=== PATIENT | male | born 1965 | race Caucasian/White ===

== ENCOUNTER 2023-02-15 13:02 | Outpatient (OUT) | payer MEDICARE, MEDICAID, SELFPAY ==
--- NOTE | 2023-02-15 13:29 | XR_ITS ---
The [place] [id number] Patient Name: GEREMIAS ARAYA MRN: [id number] date: 1965 Sex: M Assigned Patient Location: Current Patient Location: Accession/Order Number: [id number] Exam Date: 02/15/2023 13:28 Report Date: 02/15/2023 15:52 At the request of: NAYLA OAKES Procedure: XR foot RT min 3V STUDY: XR foot RT min 3V, [id number] HISTORY: RIGHT FOOT PAIN COMPARISON: Right foot x-ray 07/28/2022. FINDINGS: Chronic plantar dislocation of the cuboid with respect to the fourth and fifth metatarsals. Chronic plantar dislocation at the talonavicular joint, similar. No acute fracture. Focus of soft tissue gas along the lateral plantar aspect of the foot. There is adjacent osteolysis of the dislocated head of the cuboid which is new compared with 07/28/2022. XR/XR foot RT min 3V IMPRESSION: Chronic dislocation at the talonavicular joint and fourth and fifth tarsometatarsal joints. There is new soft tissue gas and osteolysis of the plantar and distal aspect of the cuboid, suspect for osteomyelitis. Electronically authenticated by: LYNN TARIQ Date: 02/15/2023 15:52
== END 2023-02-15 13:03 | disposition home or self-care (01) ==
LOC: WC 13:02
PROVIDERS: PCP Family Medicine; Visit Provider Podiatrist Foot & Ankle Surgery
DX: M79.671 Pain in right foot (principal); E11.621 Type 2 diabetes mellitus with foot ulcer; L97.412 Non-pressure chronic ulcer of right heel and midfoot with fat layer exposed; M86.471 Chronic osteomyelitis with draining sinus, right ankle and foot; E11.69 Type 2 diabetes mellitus with other specified complication; E11.610 Type 2 diabetes mellitus with diabetic neuropathic arthropathy
CPT/HCPCS: 29445; 73630; A6213; G0463

== ENCOUNTER 2023-02-17 11:26 | Outpatient (OUT) | payer MEDICARE, SELFPAY | END 2023-02-17 11:27 | disposition home or self-care (01) | LOC: WC 11:26 | PROVIDERS: PCP Family Medicine; Visit Provider Podiatrist Foot & Ankle Surgery | DX: E11.621 Type 2 diabetes mellitus with foot ulcer (principal); L97.412 Non-pressure chronic ulcer of right heel and midfoot with fat layer exposed; L97.421 Non-pressure chronic ulcer of left heel and midfoot limited to breakdown of skin | CPT/HCPCS: A6213; G0463 ==

== ENCOUNTER 2023-02-23 13:36 | Outpatient (OUT) | payer MEDICARE, SELFPAY ==
[2023-02-23 13:54] LABS: Basophils Percent Auto 0.5 % (0.2-2.0); Eosinophils Absolute Auto 0.3 10^3/uL (0.0-0.7); Eosinophils Percent Auto 3.3 % (0.9-7.0); Hematocrit 42.9 % (42.0-54.0); Hemoglobin 14.9 g/dL (14.0-18.0); Immature Granulocytes Abs Auto 0.02 10^3/uL (0.00-0.03); Immature Granulocytes Pct Auto 0.3 % (0.0-0.5); Lymphocytes Absolute Auto 1.2 10^3/uL (1.2-3.8); Lymphocytes Percent Auto 16.4 % (20.5-60.0); Mean Corpuscular HGB Conc 34.7 g/dL (29.9-35.2); Mean Corpuscular Hemoglobin 32.5 pg (25.9-34.0); Mean Corpuscular Volume 93.7 fL (80.0-94.0); Mean Platelet Volume 9.1 fL (9.5-13.5); Monocytes Absolute Auto 0.7 10^3/uL (0.3-0.8); Monocytes Percent Auto 8.7 % (1.7-12.0); Neutrophils Absolute Auto 5.4 10^3/uL (1.4-6.5); Neutrophils Percent Auto 70.8 % (43.0-75.0); Platelet Count 257 10^3/uL (150-450); Red Blood Count 4.58 10^6/uL (4.70-6.10); Red Cell Distribution Width 12.6 % (11.0-15.0); White Blood Count 7.6 10^3/uL (4.0-11.0)
[2023-02-23 14:02] LABS: Erythrocyte Sedimentation Rate 37 mm/hr (<=20)
[2023-02-23 14:06] LABS: Anion Gap 12.8; BUN Creatinine Ratio 15.6; Calcium 10.2 mg/dL (8.5-10.1); Carbon Dioxide 30.6 mmol/L (21.0-32.0); Chloride 97 mmol/L (98-107); Estimated GFR (African America >60 (>=60); Estimated GFR (Non-African Ame 54 (>=60); Glucose 283 mg/dL (74-106); Potassium 4.4 mmol/L (3.5-5.1); Sodium 136 mmol/L (136-145)
== END 2023-02-23 13:37 | disposition home or self-care (01) ==
LOC: RAD 13:38
PROVIDERS: PCP Family Medicine; Visit Provider Podiatrist Foot & Ankle Surgery
DX: E11.69 Type 2 diabetes mellitus with other specified complication (principal); M86.9 Osteomyelitis, unspecified; E11.622 Type 2 diabetes mellitus with other skin ulcer
CPT/HCPCS: 36415; 80048; 85025; 85652; 86140

== ENCOUNTER 2023-02-23 14:04 | Outpatient (OUT) | payer MEDICARE, SELFPAY | END 2023-02-23 14:05 | disposition home or self-care (01) | LOC: WC 14:05 | PROVIDERS: PCP Family Medicine; Visit Provider Podiatrist Foot & Ankle Surgery | DX: E11.69 Type 2 diabetes mellitus with other specified complication (principal); E11.622 Type 2 diabetes mellitus with other skin ulcer; M86.9 Osteomyelitis, unspecified; E11.621 Type 2 diabetes mellitus with foot ulcer; L97.412 Non-pressure chronic ulcer of right heel and midfoot with fat layer exposed; L97.421 Non-pressure chronic ulcer of left heel and midfoot limited to breakdown of skin | CPT/HCPCS: 36415; 80048; 85025; 85652; 86140; A6021; G0463 ==

== ENCOUNTER 2023-02-23 17:30 | Outpatient (REF) | payer MEDICARE, MEDICAID, SELFPAY | END 2023-02-23 17:31 | disposition home or self-care (01) | LOC: LAB 17:30 | PROVIDERS: PCP Family Medicine; Visit Provider Family Medicine | DX: L08.9 Local infection of the skin and subcutaneous tissue, unspecified (principal) | CPT/HCPCS: 87070; 87150; 87186 ==

== ENCOUNTER 2023-03-09 15:07 | Outpatient (OUT) | payer MEDICARE, MEDICAID, SELFPAY | END 2023-03-09 15:08 | disposition home or self-care (01) | LOC: WC 15:07 | PROVIDERS: PCP Family Medicine; Visit Provider Podiatrist Foot & Ankle Surgery | DX: E11.621 Type 2 diabetes mellitus with foot ulcer (principal); L97.412 Non-pressure chronic ulcer of right heel and midfoot with fat layer exposed | CPT/HCPCS: 11043 ==

== ENCOUNTER 2023-03-10 13:38 | Outpatient (OUT) | payer MEDICARE, MEDICAID, SELFPAY ==
--- NOTE | 2023-03-10 13:45 | ECG_ITS ---
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
--- NOTE | 2023-03-10 14:35 | PM.PRESUREVA ---
History of Present Illness History of Present Illness Chief complaint: charcot ankle and foot right Narrative: Patient presents for preadmission testing. Please see HPI I from Dr. Chadwick dated 02/23/2023. Review of Systems ROS Narrative REVIEW OF SYSTEMS: Negative except as stated in HPI, ten or more systems reviewed. Constitutional: No fever , chills, weakness ENT: No sore throat or epistaxis Cardiovascular: Admits to lower extremity edema, dyspnea on exertion, and intermittent episodes of chest pain Respiratory: No shortness of breath, cough, or wheezing Gastrointestinal: No abdominal pain, constipation, diarrhea, or vomiting Genitourinary: No dysuria or hematuria Neurological: No numbness, tingling, weakness, or headache Psychiatric: No mood changes PFSH PFS Medical History (Updated 03/10/23 @ 14:13 by Love Alvarez NP) Surgical History (Updated 03/10/23 @ 14:34 by Love Alvarez NP) Family History (Updated 03/10/23 @ 14:13 by Love Alvarez NP) Other Family history of diabetes mellitus Family history of heart disease Social History (Updated 03/10/23 @ 14:06 by Love Alvarez NP) Within the past year, how often did you have a drink containing alcohol: 4 or more times a week Within the past year, how many standard drinks containing alcohol did you have on a typical day: 3 or 4 Smoking status: Current every day smoker Non-prescribed substance use: denies use Highest level of school completed/degree received: high school graduate Meds Home Medications and Allergies Home Medications Medication Instructions Recorded Confirmed Type albuterol sulfate 90 mcg/actuation 2 inh inhalation Q6H PRN shortness 03/10/23 03/10/23 History aerosol inhaler of breath or wheezing alprazolam 1 mg tablet 1 mg PO TID 03/10/23 03/10/23 History amoxicillin 875 mg-potassium 1 tab PO Q12H 03/10/23 03/10/23 History clavulanate 125 mg tablet atorvastatin 10 mg tablet 10 mg PO QDAY 03/10/23 03/10/23 History doxepin 50 mg capsule 150 mg PO QPM 03/10/23 03/10/23 History empagliflozin 25 mg tablet 25 mg PO QDAY 03/10/23 03/10/23 History (Jardiance) fluoxetine 10 mg capsule mg 03/10/23 History furosemide 20 mg tablet 20 mg PO QDAY PRN edema 03/10/23 03/10/23 History gabapentin 800 mg tablet 800 mg PO TID 03/10/23 03/10/23 History insulin glargine 100 unit/mL (3 25 unit subcut QAM 03/10/23 03/10/23 History mL) subcutaneous pen (Lantus Solostar U-100 Insulin) insulin lispro 100 unit/mL 14 unit subcut BID 03/10/23 03/10/23 History subcutaneous pen lisinopril 10 mg tablet 10 mg PO QDAY 03/10/23 03/10/23 History meloxicam 15 mg tablet 15 mg PO QDAY 03/10/23 03/10/23 History metformin 500 mg tablet 500 mg PO TID 03/10/23 03/10/23 History metoprolol succinate 50 mg 50 mg PO QDAY 03/10/23 03/10/23 History tablet,extended release 24 hr omeprazole 20 mg capsule,delayed 20 mg PO QDAY 03/10/23 03/10/23 History release sildenafil 100 mg tablet 100 mg PO Q24H 03/10/23 03/10/23 History thiamine HCl (vitamin B1) 50 mg 50 mg PO QDAY 03/10/23 03/10/23 History tablet Allergies Allergy/AdvReac Type Severity Reaction Status Date / Time No Known Drug Allergies Allergy Verified 03/10/23 13:57 Exam Narrative Exam Narrative: Constitutional: Awake, alert, comfortable, well-appearing, nontoxic, interactive, vital signs as charted Head: Normocephalic, atraumatic Neck: Supple, normal appearance, normal range of motion, no meningeal signs, no lymphadenopathy Respiratory: No respiratory distress, breath sounds clear Cardiovascular: Regular rate and rhythm, strong and regular heart tones Psychiatric: Oriented ?3, normal affect Assessment and Plan Assessment and Plan (1) Charcot's joint, right ankle and foot: (2) Diabetic foot ulcer: (3) Osteoarthritis: Plan Right ankle and subtalar joint fusion, secondary closure of wound, incision of bone, Achilles tenotomy scheduled with Dr. Chadwick 03/24/2023. The patient states that he was referred to cardiology for his chest pain and dyspnea on exertion. He was supposed to have a stress test done two weeks ago, but he stated that he just felt that he did not need to go. I advised the patient that he does need to have a stress test and cardiac clearance prior to his procedure, unless the procedure is deemed urgent by Dr. Chadwick and discussed with anesthesiology.
[2023-03-10 15:16] LABS: BUN Creatinine Ratio 15.3; Calcium 9.7 mg/dL (8.5-10.1); Carbon Dioxide 28.2 mmol/L (21.0-32.0); Chloride 100 mmol/L (98-107); Estimated GFR (African America >60 (>=60); Estimated GFR (Non-African Ame 60 (>=60); Glucose 179 mg/dL (74-106); Potassium 4.2 mmol/L (3.5-5.1); Sodium 137 mmol/L (136-145)
== END 2023-03-10 13:39 | disposition home or self-care (01) ==
PROVIDERS: Visit Provider Podiatrist Foot & Ankle Surgery
DX: Z01.810 Encounter for preprocedural cardiovascular examination (principal); Z01.812 Encounter for preprocedural laboratory examination; E11.610 Type 2 diabetes mellitus with diabetic neuropathic arthropathy; M19.071 Primary osteoarthritis, right ankle and foot
CPT/HCPCS: 80048; 93005; G0463

== ENCOUNTER 2023-03-31 16:27 | Observation (INO) | payer MEDICARE, MEDICAID, SELFPAY ==
[2023-03-10 14:30] VITALS: BP 131/74; PULSE 93; RESP 22; TEMP 36.6; O2SAT 98; BMI 32.8
[2023-03-31] VITALS (28 sets, daily range): BP systolic 101–142; BP diastolic 64–99; PULSE 72–123; RESP 11–20; TEMP 35.8–36.8; O2SAT 16–100; BMI 32.4
--- NOTE | 2023-03-31 | XR_ITS ---
[address] [address] Patient Name: GEREMIAS ARAYA MRN: [id number] date: 1965 Sex: M Assigned Patient Location: [facility] Current Patient Location: [place] Accession/Order Number: [id number] Exam Date: 03/31/2023 08:45 Report Date: 03/31/2023 23:39 At the request of: GEREMIAS GAN Procedure: XR foot RT 2V EXAM: XR foot RT 2V HISTORY: RIGHT FOOT PAIN COMPARISON: Right foot radiographs 03/31/2023 TECHNIQUE: Intraoperative fluoroscopic exam demonstrating right subtalar joint fusion. Approximately 501.2 seconds of fluoroscopic time for total dose of 7.19 mGy. FINDINGS/IMPRESSION: Intraoperative fluoroscopic exam showing subtalar joint fusion without evident hardware complication. Distal resection of the fibula. See operative report for further details. Electronically authenticated by: CASSIE PARMAR Date: 03/31/2023 23:39
[2023-03-31 07:33] LABS: Glucometer 123 mg/dL (74-106)
[2023-03-31 07:39] LABS: Basophils Absolute Auto 0.1 10^3/uL (0.0-0.1); Basophils Percent Auto 0.9 % (0.2-2.0); Eosinophils Absolute Auto 0.4 10^3/uL (0.0-0.7); Eosinophils Percent Auto 4.6 % (0.9-7.0); Hematocrit 44.5 % (42.0-54.0); Hemoglobin 14.7 g/dL (14.0-18.0); Immature Granulocytes Abs Auto 0.03 10^3/uL (0.00-0.03); Immature Granulocytes Pct Auto 0.4 % (0.0-0.5); Lymphocytes Absolute Auto 2.2 10^3/uL (1.2-3.8); Lymphocytes Percent Auto 27.1 % (20.5-60.0); Mean Corpuscular Volume 96.7 fL (80.0-94.0); Mean Platelet Volume 9.8 fL (9.5-13.5); Monocytes Percent Auto 11.8 % (1.7-12.0); Neutrophils Absolute Auto 4.5 10^3/uL (1.4-6.5); Neutrophils Percent Auto 55.2 % (43.0-75.0); Platelet Count 250 10^3/uL (150-450); White Blood Count 8.1 10^3/uL (4.0-11.0)
[2023-03-31] MEDS: LACTATED RINGER'S SOLUTION 1,000 ML 50 ML IV ×3 (07:51→18:12)
[2023-03-31 08:38] LABS: Ethanol <3 mg/dL
--- NOTE | 2023-03-31 09:13 | PM.ORONB ---
Brief Operative Note Date of procedure: 03/31/23 Pre-op diagnosis: left foot Charcot, diabetic foot ulceration with osteomyelitis, equinus Post-op diagnosis: other (left foot Charcot with dislocation of the talonavicular and cuboid-4th/5th metatarsal joints, diabetic foot ulceration with chronic osteomyelitis, equinus; type 2 diabetes with ulceration, neuropathy and Charcot foot) Procedure: PROCEDURES PERFORMED: right ankle and subtalar joint fusion, delayed primary closure of ulceration, excision of cuboid, tendo Achilles lengthening, harvest of tibial bone graft, application short leg splint and intraoperative fluoroscopy examination of right foot and ankle INTRAOPERATIVE FINDINGS: plantar cuboid was consistent with chronic osteomyelitis being discolored and soft. Fibrotic and necrotic soft tissues surrounding the cuboid and ulceration was excised. The cuboid was fully excised and all questionable soft tissue excised. Following excision all remaining tissue/bone appeared to be consistent with Charcot. peritalar subluxation and significant deformity of the ankle and hindfoot. bone quality of the talus was relatively soft and consistent with Charcot. Skin and tissues bled appropriately. PROCEDURE IN DETAIL: Patient was identified in pre op and consent was reviewed. Correct side and site were identified and marked. Pre-op antibiotics were started. Patient was brought to OR suite and place on table in a supine position. General anesthesia was administered. Tourniquet applied. Operative extremity was prepped and draped in usual sterile fashion. Formal time-out was performed and the foot/ankle were exsanguinated and tourniquet inflated. ulceration on his plantar lateral foot measured:3.6 x 3.2 x 2.5 cm. ulceration and all nonviable/questionable tissue was excised in a 3-1 ellipse. Combination sharp and blunt dissection exposed the plantar cuboid which was then released of soft tissue attachments. The cuboid was soft and discolored consistent with chronic osteomyelitis however no evidence of acute infection or purulence. The plantar half of the cuboid was excised and passed back table for specimen. Due to limitation of exposure intact cuboid was not excised through this incision therefore a secondary incision coursing over the sinus tarsi extending to the 5th metatarsal base was utilized. Comminution sharp and blunt dissection gained access to the dorsal aspect of the cuboid allowing it to be fully excised. Surgical site was then irrigated with 3 L of normal saline. Gloves/gowns and surgical drapes were then changed. Bone of the metatarsals and calcaneus although soft were consistent with Charcot bone. Specimen was then obtained with a clean rongeur and sent to microbiology. All questionable and grossly infected bone and soft tissue had been excised therefore decision was made to proceed with ankle and hindfoot fusion. on the back table absorbable bone void filler/cement impregnated with 1 g of vancomycin 1 g of gentamicin was repaired on the back table into beads for later use. the ellipsed ulceration was then meticulously repaired directly with nonabsorbable skin suture without tension while holding the midfoot in a reduced position. Achilles tenotomy: Utilizing a stab incision over the mid substance of the Achilles tendon, a scalpel was used to fully release the Achilles tendon. Significant increase in ankle joint dorsiflexion was noted on the table. A lateral extensile incision over the fibula and coursing to the sinus tarsi was performed. Sharp and blunt dissection was performed to gain access to the fibula. A fibular osteotomy with an oscillating saw was performed proximal to the ankle joint. The fibula was excised from all soft tissue attachments and passed to the back table. Then the ankle and subtalar joints were exposed. Each joint was prepared for fusion by removing all cartilage with the utilization of curettes, osteotomes, and subchondral drilling with a 2.0 mm drill bit. The areas were irrigated with copious amounts of sterile saline multiple times. at this point the procedure the tourniquet was deflated and a temporary pressure dressing with Gelfoam and thrombin was placed over the surgical sites and the extremity was allowed to perfuse. Utilizing C-arm a proper starting point on the plantar surface of the calcaneus was marked. An incision over the plantar heel was created blunt dissection down to the plantar calcaneus was performed. Then utilizing a large guidepin the calcaneus was held in place and in a neutral position. Then a guidepin was placed across the subtalar and ankle joints. This wire was then placed into the distal tibia and was confirmed to be within regularity canal and advanced accordingly. approximately thirty minutes had passed since the tourniquet was dropped and to minimize blood loss extremity was exsanguinated tourniquet was reinflated. Starting with the smallest reamer provided in the tray and the calcaneus, talus and tibia were reamed followed by 0.5 mm larger reamer in succession until chatter was obtained in the tibial isthmus. Largest reaming with an __ mm reamer followed by a 13.5 mm reamer to accommodate the distal aspect of the nail was performed for a 10 x 300 mm nail. All reamings collected as tibial autograft with use of the [employer] Bone Press and corresponding suction device. 15 mL of solid bone graft was from bone marrow aspirate (10 mL) utilizing the bone press. The solid graft was mixed with 5 cc of sparc allograft then packed into the ankle and subtalar joints. On the back table, the appropriate sized nail was attached to the jig and the nitinol element was stretched to 6 mm. The guidepin was removed and the nail was placed to the appropriate depth and rotation. X-ray was evaluated for proper positioning of the nail. Stab incisions over the posterior and lateral aspect of the calcaneus were placed followed by blunt dissection down to bone was performed. The lateral to medial calcaneus hole was drilled with the corresponding cannula and a 5.0 mm screws was placed. Next, the distal most screw was drilled from posterior to anterior under fluoroscopy guidance. A 5.0 mm screw was then placed from a posterior anterior direction through the nail holes distally. A stab incision was placed over the mid shaft of the tibia followed by blunt dissection down to bone. Then the tibia drilled transversely with a compression isabela accordingly with the appropriate drill sleeves across the dynamic proximal slot an additional stab incision was placed to allow passage of the compression isabela. Then utilizing the jig the ankle and subtalar joints were compressed until there was a slight bend in the compression rods. __ of tremaine compression was obtained which was visualized under fluoroscopy. Next the medial stab incision was extended proximally and distally followed by blunt dissection down to bone. A static crosslock screw was placed accordingly across the midshaft with the aide of the jig under fluoroscopic guidance. The manual compression was removed followed by the compression isabela. An additional 5.0 mm screw was placed transversely across the dynamic slot in the tibia. The jig was then removed after confirming proper hardware placement. An end cap on the distal aspect of the nail was then placed and confirmed under fluoroscopy. on final x-rays it was noted that the posterior aspect of the talus had broken and correction of talar declination had been lost. Therefore to provide additional stability at the tibiotalar joint additional fixation was utilized. A stab incision was used on the medial malleolus and a guidepin was placed from the medial malleolus and across the anterior aspect of the ankle joint into the talar body. Then an additional guidewire was placed from the lateral aspect of the talar body/neck and was placed across the tibiotalar joint into the anterior medial distal tibia. 7.0 mm cannulated screws were placed accordingly over the wires and additional stability was obtained when stressing the ankle joint. The midfoot did provide twenty degrees of sagittal plane range of motion. surgical site was irrigated and the antibiotic beads previously prepared were then placed through the lateral incision anterior to the calcaneus in the area of the previously resected cuboid. The surgical sites were irrigated and all incisions were closed in layers. the tourniquet was deflated and a prompt hyperemic response was noted. A dry sterile dressing consisting of Xeroform on the incisions followed by 4 x 4 gauze, ABDs, and Kerlix were applied. Multiple layers of cast padding were then applied to ensure all bony prominences were well-padded. A plaster posterior splint was then applied which was held in place by Raymundo wraps. Capillary refill time to all digits was evaluated and had appropriate response. POSTOPERATIVE PLAN: Transfer to med/surg under hospitalist's care NWB operative foot/ankle Ice and elevation Angelica-op antibiotics, multimodal pain medication and DVT prophylaxis ordered Alcohol withdrawl protocol - patient admits to 6+ drinks per day Consults: physical therapy & psychosocial rehabilitation counselor Estimated LOS 2-3 nights Will follow *NWB x 8-12 weeks Implants: Medshape DynaNail 10 x 300; Cerament beads with vanco/gent; Medline 7.0 mm headed cannulated screws; Sparc bone allograft 5 cc Anesthesia: regional and General-LMA Surgeon: Montrell Chadwick Service Rig Operator: Diaz Naranjo Estimated blood loss (mL): 150 Pathology: other (bone from cuboid was sent to microbiology and pathology) Condition: stable Disposition: PACU Preoperative Details Reason for procedure: patient is a 57-year-old male who initially was treated by Franky Turpin DPM for right foot Charcot neuroarthropthy associated with diabetic neuropathy. initial x-rays in March 2022, MRI obtained in April [address] obtained in May 2022 demonstrated subluxation of the talonavicular joint as well as the cuboid-4th/5th metatarsal joint without evidence of osteomyelitis or infection. He then was being followed by Dr. Ruth who referred the patient to me in June 2022. weightbearing x-rays in my office demonstrated a negative cuboid height, significant plantarflexion of the talus with dorsal subluxation of the talonavicular joint and bony fragmentation plantar to these areas. I advised the patient that at the time he did not have an ulceration would be at very high risk given the amount of cuboid and peritalar subluxation. Surgical intervention was discussed but the patient elected to continue with nonsurgical care with Dr. Ruth. patient return to my office for repeat evaluation and surgical consultation in February 2023. at that time he had developed a deep wound which only progressively got worse over the next several weeks. It was communicated to them that bony changes to the cuboid were noted on x-ray as well as a follow-up CT scan which was consistent with osteomyelitis. A deep culture was obtained in my office which resulted in Enterococcus and Providencia. He was placed on augmentin & ciprofloxacin. Given ulcer depth and cortical changes I again recommended surgical reconstruction and the patient agreed. He was educated that he has a very complicated limb threatening issue and may require multiple surgeries to correct his problem. He also was educated that he is at high risk for perioperative complications and he did obtain cardiac clearance. In addition, given his comorbidities and existing severe deformity with ulceration and osteomyelitis he is at high risk for postsurgical complication including infection and need for below-knee amputation. I recommended that he undergo ankle and hindfoot fusion to control peritalar subluxation in addition to excision of infected bone with possible delayed primary closure of his ulceration. All questions were answered to the patient's satisfaction and postoperative course/plan was discussed specifically regarding need for long-term antibiotics and prolonged nonweightbearing necessary to obtain adequate fusion. Patient has provided consent to undergo surgical reconstruction knowing that reconstruction may need to be staged pending findings during surgery.
[2023-03-31] MEDS: CEFAZOLIN SODIUM/DEXTROSE,ISO 2 GM/50 ML PIGGYBACK IV ×3 (09:14→23:21)
--- NOTE | 2023-03-31 09:18 | PC.NURSE ---
time out performed per hospital protocol at 855. Verified correct limb per patient, Dr. Alexsander Diaz Marking and surgical consent. Following time out patient positioned per anesthesia on left side. Dr. Zamorano used ultrasound guidance to identify proper anatomy and injection site. Dr. Zamorano performed the procedure using sterile technique. Site cleaned with chloraprep wands. Vital signs monitored throughout entire procedure, see documentation in vital signs tabs from [id number]. Patient tolerated procedure well.
[2023-03-31] MEDS: GENTAMICIN SULFATE 1 GM POWDER TOPICAL (11:13)
[2023-03-31] MEDS: VANCOMYCIN HCL 1,000 MG VIAL 1000 MG TOPICAL (11:22)
[2023-03-31] MEDS: THROMBI-GEL SIZE 40 HEMOSTAT 1 EACH TOPICAL ×2 (11:38)
[2023-03-31] MEDS: HYDROMORPHONE HCL 0.5 MG/0.5 ML SYRINGE IV ×2 (15:10→15:15)
[2023-03-31] MEDS: LORAZEPAM 2 MG/ML 1 ML VIAL 0.5 MG IV (15:36)
[2023-03-31 15:45] LABS: Glucometer 206 mg/dL (74-106)
--- NOTE | 2023-03-31 16:12 | XR_ITS ---
The [address] [address] Patient Name: GEREMIAS ARAYA MRN: [id number] date: 1965 Sex: M Assigned Patient Location: [facility] Current Patient Location: [place] Accession/Order Number: [id number] Exam Date: 03/31/2023 16:00 Report Date: 04/01/2023 11:25 At the request of: SHIRLEY JONES Procedure: XR ankle RT min 3V PROCEDURE: XR ankle RT min 3V, XR foot RT min 3V COMPARISON: Intraprocedural images of the same day HISTORY: postop xr FINDINGS: BONES:There is been interval surgery with subtalar fusion utilizing a retrograde intramedullary isabela and proximally and distally. There appears to be resection of the cuboid with placement of hyperdensity laterally likely representing antibiotic seeds placement. Persistent dorsal subluxation of the midfoot in relation to the hindfoot. Resection of the fibula. SOFT TISSUES:Lateral soft tissue swelling and postsurgical changes EFFUSION:None visible. OTHER: Negative. XR/XR ankle RT min 3V IMPRESSION: Postoperative changes as detailed above Electronically authenticated by: SASHA FLAHERTY Date: 04/01/2023 11:25
--- NOTE | 2023-03-31 16:12 | XR_ITS ---
The [address] [address] Patient Name: GEREMIAS ARAYA MRN: [id number] date: 1965 Sex: M Assigned Patient Location: [facility] Current Patient Location: [place] Accession/Order Number: [id number] Exam Date: 03/31/2023 16:00 Report Date: 04/01/2023 11:25 At the request of: SHIRLEY JONES Procedure: XR foot RT min 3V PROCEDURE: XR ankle RT min 3V, XR foot RT min 3V COMPARISON: Intraprocedural images of the same day HISTORY: postop xr FINDINGS: BONES:There is been interval surgery with subtalar fusion utilizing a retrograde intramedullary isabela and proximally and distally. There appears to be resection of the cuboid with placement of hyperdensity laterally likely representing antibiotic seeds placement. Persistent dorsal subluxation of the midfoot in relation to the hindfoot. Resection of the fibula. SOFT TISSUES:Lateral soft tissue swelling and postsurgical changes EFFUSION:None visible. OTHER: Negative. XR/XR foot RT min 3V IMPRESSION: Postoperative changes as detailed above Electronically authenticated by: SASHA FLAHERTY Date: 04/01/2023 11:25
[2023-03-31 17:57] LABS: Glucometer 185 mg/dL (74-106)
[2023-03-31] MEDS: OXYCODONE HCL 15 MG TABLET PO (19:29)
[2023-03-31 20:04] LABS: Glucometer 241 mg/dL (74-106)
[2023-03-31] MEDS: DOXEPIN HCL 25 MG CAPSULE 150 MG PO (21:11)
[2023-03-31] MEDS: ALPRAZOLAM 1 MG TABLET PO (21:11)
[2023-03-31] MEDS: KETOROLAC TROMETHAMINE 30 MG/ML VIAL IM (21:12)
[2023-03-31] MEDS: GABAPENTIN 400 MG CAPSULE 800 MG PO (21:12)
[2023-03-31] MEDS: ENOXAPARIN SODIUM 40 MG/0.4 ML SYRINGE SUBQ (21:12)
[2023-03-31] MEDS: ATORVASTATIN CALCIUM 10 MG TABLET PO (21:12)
[2023-03-31] MEDS: INSULIN ASPART 300 UNIT/3 ML PEN SUBQ (21:24)
[2023-04-01 05:25] VITALS: BP 106/67; PULSE 82; RESP 18; TEMP 36.6; O2SAT 90
[2023-04-01] MEDS: ALPRAZOLAM 1 MG TABLET PO (05:43)
[2023-04-01] MEDS: OXYCODONE HCL 15 MG TABLET PO ×2 (05:43→17:54)
[2023-04-01] MEDS: OMEPRAZOLE 20 MG CAPSULE.DR PO (05:44)
[2023-04-01] MEDS: GABAPENTIN 400 MG CAPSULE 800 MG PO ×2 (05:44→13:59)
[2023-04-01 08:09] LABS: Glucometer 139 mg/dL (74-106)
[2023-04-01] MEDS: CEFAZOLIN SODIUM/DEXTROSE,ISO 2 GM/50 ML PIGGYBACK IV ×2 (08:40→14:22)
[2023-04-01] MEDS: MELOXICAM 7.5 MG TABLET 15 MG PO (08:47)
[2023-04-01] MEDS: CANAGLIFLOZIN 100 MG TABLET 300 MG PO (08:47)
[2023-04-01] MEDS: METOPROLOL SUCCINATE 50 MG TAB.ER.24H PO (08:47)
[2023-04-01] MEDS: LISINOPRIL 10 MG TABLET PO (08:48)
[2023-04-01] MEDS: FLUOXETINE HCL 10 MG CAPSULE PO (08:48)
[2023-04-01] MEDS: INSULIN DETEMIR 300 UNIT/3 ML INSULN.PEN 25 UNIT SUBQ (08:48)
[2023-04-01] MEDS: THIAMINE MONONITRATE (VIT B1) 100 MG TABLET 50 MG PO (08:48)
[2023-04-01] MEDS: ALENDRONATE SODIUM 70 MG TABLET PO (08:48)
--- NOTE | 2023-04-01 09:06 | PM.PN ---
Progress Note: Subjective Subjective Interval history: Patient seen this a.m. resting comfortably at bedside. POD#1 s/p right ankle subtalar joint fusion, delayed primary closure ulceration, excision of cuboid, KAPIL, harvest of tibial bone autograft, application short leg splint DOS 03/31/2023. Admits to mild pain in the right lower extremity. Controlled with p.o. meds. On CIWA protocol, denies any symptoms this AM. Denies any acute events overnight. Denies any other lower extremity complaints. Exam Narrative Exam Narrative: RLE splint left CDI. Vascular: CFT intact to digits. No ascending lymphangitis. No erythema or edema proximal or distal to dressing. Neuro: Light touch and gross sensation diminished. Protective sensation to digits absent. Derm: RLE splint CDI. No open lesions proximal or distal dressing. MSK: Compartment soft compressible. No pain with calf or thigh compression. Active range of motion of digits is present. Constitutional Vital Signs, click to edit/add: Last Vital Signs Temp 97.8 F 04/01/23 05:25 Pulse 82 04/01/23 05:25 Resp 18 04/01/23 05:25 BP 106/67 04/01/23 05:25 Pulse Ox 90 L 04/01/23 05:25 O2 Del Method Room Air 04/01/23 05:25 O2 Flow Rate 2 03/31/23 09:10 Progress Note: A&P Assessment and Plan (1) Charcot's joint, right ankle and foot: (2) Diabetes: (3) Diabetic foot ulcer: (4) Chronic osteomyelitis of right foot: (5) Alcohol dependence: Plan , Patient examined and evaluated. All findings were discussed with patient all questions answered patient satisfaction. Patient appears to be recovering well following surgery yesterday. He was somewhat agitated in the PACU and received a dose of Ativan per CIWA protocol, responded well. No complaints this AM. Labs and imaging reviewed. Leave right leg splint CDI. Maintain nonweightbearing to right lower extremity. PT and social work consults pending. Anticipate DC home following this. Stable to DC from podiatry's perspective following these consults and barring any recommendations for acute rehab. Rest per primary We will continue to follow.
[2023-04-01 11:22] LABS: Glucometer 247 mg/dL (74-106)
--- NOTE | 2023-04-01 11:40 | CM.NOTE ---
Rounds made with Dr. Veloz, awaiting PT evaluation and podiatry to see pt for plan of care.
[2023-04-01 12:23] VITALS: O2SAT 97
--- NOTE | 2023-04-01 12:23 | SWNOTE1 ---
SW spoke with doctor and doctor wanted SW to see if pt is agreeable to go to rehab. SW met with pt and discussed dc plans. Pt did acknowledge that he is weaker and shaky. SW mentioned to pt going to rehab for a short time. Pt does not want to go to rehab. Pt stated the shakiness is from the coffee he drank this morning. Pt does admit it was tough getting up and being NWB on foot and that his arms are weaker and his left foot is not his dominant foot. SW again mentioned going to rehab. Pt does not want to go and voiced he will be fine at home. SW asked if he was at least open to home health coming in? Pt is open to this. He lives in a 1 story home. Pt does have friends and his 2 sons live within 15 minutes and can help him at home. Pt does have a wheelchair at home. SW asked about a walker. Pt does not have a walker. SW to see if doctor will provide documentation for walker. SW provided list of home health companies. Pt would like [facility] to send referral.
[2023-04-01] MEDS: NICOTINE 21 MG PATCH TD (12:27)
[2023-04-01] MEDS: FOLIC ACID 1 MG TABLET PO (12:27)
--- NOTE | 2023-04-01 12:27 | CM.NOTE ---
Medicare Outpatient Observation Notice discussed with pt, pt verbalizes understanding and signs paper. Original given to pt and copy placed on pt's chart.
[2023-04-01] MEDS: INSULIN ASPART 300 UNIT/3 ML PEN SUBQ ×3 (12:28→22:28)
--- NOTE | 2023-04-01 13:51 | PM.HP ---
H&P: HPI History of Present Illness Chief complaint: Charcot foot/non healing diabetic ulcer with OM Narrative: 57 y o male was admitted for post op pain control/observation after he underwent right ankle and subtalar joint fusion, excision of cuboid and harvest of tibial bone graft. Patient has a long hx of heavy alcohol use on daily basis and appeared to be in alcohol withdrawal this morning. He was noted to be tremulous, sweating, anxious but when inquired, claimed it is because he had too much coffee to drink this morning. While working with PT/OT, he was very unstable and unable to ambulate safely using a walker. 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 He reports mild post op pain but other than that he did not report any concern related to his post op leg. Review of Systems ROS Status of ROS 10 or more systems reviewed and unremarkable except as noted in history and below [facility] Medical History (Updated 04/01/23 @ 14:10 by Shaikh Magdiel MD) Surgical History Family History Other Family history of diabetes mellitus Family history of heart disease Social History Within the past year, how often did you have a drink containing alcohol: 4 or more times a week Within the past year, how many standard drinks containing alcohol did you have on a typical day: 3 or 4 Smoking status: Current every day smoker Non-prescribed substance use: denies use Highest level of school completed/degree received: high school graduate Meds Home Medications and Allergies Home Medications Medication Instructions Recorded Confirmed Type albuterol sulfate 90 mcg/actuation 2 inh inhalation Q6H PRN shortness 03/10/23 03/10/23 History aerosol inhaler of breath or wheezing alprazolam 1 mg tablet 1 mg PO TID 03/10/23 03/10/23 History amoxicillin 875 mg-potassium 1 tab PO Q12H 03/10/23 03/10/23 History clavulanate 125 mg tablet atorvastatin 10 mg tablet 10 mg PO QDAY 03/10/23 03/10/23 History doxepin 50 mg capsule 150 mg PO QPM 03/10/23 03/10/23 History empagliflozin 25 mg tablet 25 mg PO QDAY 03/10/23 03/10/23 History (Jardiance) fluoxetine 10 mg capsule mg 03/10/23 History furosemide 20 mg tablet 20 mg PO QDAY PRN edema 03/10/23 03/10/23 History gabapentin 800 mg tablet 800 mg PO TID 03/10/23 03/10/23 History insulin glargine 100 unit/mL (3 25 unit subcut QAM 03/10/23 03/10/23 History mL) subcutaneous pen (Lantus Solostar U-100 Insulin) insulin lispro 100 unit/mL 14 unit subcut BID 03/10/23 03/10/23 History subcutaneous pen lisinopril 10 mg tablet 10 mg PO QDAY 03/10/23 03/10/23 History meloxicam 15 mg tablet 15 mg PO QDAY 03/10/23 03/10/23 History metformin 500 mg tablet 500 mg PO TID 03/10/23 03/10/23 History metoprolol succinate 50 mg 50 mg PO QDAY 03/10/23 03/10/23 History tablet,extended release 24 hr omeprazole 20 mg capsule,delayed 20 mg PO QDAY 03/10/23 03/10/23 History release sildenafil 100 mg tablet 100 mg PO Q24H 03/10/23 03/10/23 History thiamine HCl (vitamin B1) 50 mg 50 mg PO QDAY 03/10/23 03/10/23 History tablet alendronate 70 mg tablet (Fosamax) 70 mg PO QWEEK 12 weeks #12 tabs 03/31/23 Rx cefadroxil 500 mg capsule 500 mg PO BID 2 weeks #28 caps 03/31/23 Rx cholecalciferol (vitamin D3) 125 125 mcg PO DAILY 90 days #90 caps 03/31/23 Rx mcg (5,000 unit) capsule enoxaparin 40 mg/0.4 mL 40 mg (0.4 mL) subcut Q24H #4 mL 03/31/23 Rx subcutaneous syringe (Lovenox) ondansetron 4 mg disintegrating 4 mg PO Q8H PRN nausea and 03/31/23 Rx tablet vomiting 5 days #15 tabs oxycodone-acetaminophen 5 mg-325 1 tab PO Q6H PRN pain 7 days #28 03/31/23 Rx mg tablet (Percocet) tabs sennosides 8.6 mg tablet (Senna 8.6 mg PO DAILY PRN constipation 7 03/31/23 Rx Laxative) days #7 tabs tizanidine 2 mg capsule 2 mg PO TID PRN muscle spasticity 03/31/23 Rx 7 days #21 caps Allergies Allergy/AdvReac Type Severity Reaction Status Date / Time No Known Drug Allergies Allergy Verified 03/10/23 13:57 Exam Constitutional Vital Signs, click to edit/add: Last Vital Signs Temp 97.8 F 04/01/23 05:25 Pulse 82 04/01/23 05:25 Resp 18 04/01/23 05:25 BP 106/67 04/01/23 05:25 Pulse Ox 90 L 04/01/23 05:25 O2 Del Method Room Air 04/01/23 05:25 O2 Flow Rate 2 03/31/23 09:10 Documenting provider has reviewed patient's vital signs: yes Common normals: no apparent distress and oriented x3 General appearance: anxious and diaphoretic Nutritional appearance: obese HENMT Common normals: normocephalic and head/scalp atraumatic Head and scalp: normocephalic and atraumatic Eye Common normals: conjunctivae normal and no scleral icterus Conjunctiva: conjunctiva(e) normal Respiratory Common normals: normal respiratory effort and clear to auscultation bilaterally Effort & inspection: able to speak in complete sentences Auscultation: clear to auscultation bilaterally Cardio Common normals: regular rate, S1 normal heart sound and S2 normal heart sound Rate: regular rate Heart sounds: S1 normal and S2 normal GI Common normals: Normal to inspection, nondistended, normoactive bowel sounds present, soft to palpation, non-tender and no hepatosplenomegaly Palpation: soft and no hepatosplenomegaly Extremity Common normals: no clubbing, cyanosis or edema (post op dressing right foot. ) Neuro Common normals: oriented x3, moves all extremities and no focal motor deficits Psych Common normals: mental status grossly normal, denies hallucinations, denies homicidal ideation and denies suicidal ideation Assessment and Plan Assessment and Plan (1) Chronic osteomyelitis of right foot: Assessment and Plan: Chronic OM and non healing ulcer. S/p right ankle and subtalar joint fusion, excision of cuboid and harvest of tibial bone graft. Pod on board and will need outpatient f/u for continued care. PT/OT eval Unsteady on his feet, unable to walk using a walker w/o one person assist. He lives by himself and I suspect, he will require rehab placement. (2) Diabetes: Assessment and Plan: C/w lantus/SSI while inpatient He is on Invokana as outpatient - contra indicated in patients with Diabetic foot ulcers - should be d/brian as outpatient. Qualifiers: Diabetes mellitus type: type 2 Diabetes mellitus custodial insulin use: with termite control service representative use Diabetes mellitus complication status: with skin complications (3) Alcohol withdrawal syndrome: Assessment and Plan: Currently in mild alcohol withdrawal. Drinks hard liquor daily along with beer. CIWA is 6-7 Started on Librium 50 TID along with IV ativan as needed Close monitoring as per CIWA protocol Qualifiers: Complication of substance-induced condition: uncomplicated Qualified Code(s): F10.930 - Alcohol use, unspecified with withdrawal, uncomplicated (4) Hypertension: Assessment and Plan: Stable. C/w home meds (5) High cholesterol: Assessment and Plan: C/w statin (6) Need for assistance due to unsteady gait: Assessment and Plan: Suspect this could be due to alcohol withdrawal. PT/OT ravin. Check b12, folate. (7) Diabetic neuropathy: Assessment and Plan: on gabapentin/ C.w same Qualifiers: Diabetes mellitus type: type 2 Diabetes mellitus complication detail: diabetic polyneuropathy Qualified Code(s): E11.42 - Type 2 diabetes mellitus with diabetic polyneuropathy
[2023-04-01 13:53] VITALS: BP 113/74; PULSE 91; RESP 20; TEMP 37.2; O2SAT 96
[2023-04-01] MEDS: OXYCODONE HCL 5 MG TABLET 10 MG PO (13:59)
--- NOTE | 2023-04-01 14:14 | SWNOTE1 ---
[facility] able to accept. SW to let nursing and pt know. They will start care Tuesday.
[2023-04-01] MEDS: CLORDIAZEPOXIDE HCl 25 MG CAPSULE 50 MG PO (14:25)
[2023-04-01 16:38] LABS: Glucometer 147 mg/dL (74-106)
[2023-04-01] MEDS: ACETAMINOPHEN 500 MG TABLET 1000 MG PO (17:58)
[2023-04-01 20:15] VITALS: RESP 18; O2SAT 91
[2023-04-01 21:16] VITALS: BP 99/57; PULSE 60; RESP 18; TEMP 36.9; O2SAT 92
--- NOTE | 2023-04-01 22:01 | PC.NURSE ---
Pt told nurse he has been taking bedside meds without our knowledge. He admitted to xanax, vannessa and lisinopril but did not specify doses. QUALITY LEAD informed RN and Nursing paper mill supervisor as well as tele hospitalist. Nurse is going to ask patient for meds to be locked up.
[2023-04-01 22:28] LABS: Glucometer 184 mg/dL (74-106)
[2023-04-02] MEDS: OXYCODONE HCL 15 MG TABLET PO ×3 (00:08→10:17)
[2023-04-02 04:00] VITALS: O2SAT 90
[2023-04-02] MEDS: GABAPENTIN 400 MG CAPSULE 800 MG PO (05:00)
[2023-04-02] MEDS: CLORDIAZEPOXIDE HCl 25 MG CAPSULE 50 MG PO (05:00)
[2023-04-02 05:08] VITALS: BP 132/75; PULSE 105; RESP 20; TEMP 37.1; O2SAT 93
[2023-04-02] MEDS: OMEPRAZOLE 20 MG CAPSULE.DR PO (05:36)
[2023-04-02 05:56] LABS: Basophils Absolute Auto 0.1 10^3/uL (0.0-0.1); Basophils Percent Auto 0.8 % (0.2-2.0); Eosinophils Absolute Auto 0.3 10^3/uL (0.0-0.7); Eosinophils Percent Auto 2.5 % (0.9-7.0); Hematocrit 37.1 % (42.0-54.0); Hemoglobin 11.9 g/dL (14.0-18.0); Immature Granulocytes Abs Auto 0.05 10^3/uL (0.00-0.03); Immature Granulocytes Pct Auto 0.5 % (0.0-0.5); Lymphocytes Absolute Auto 2.2 10^3/uL (1.2-3.8); Lymphocytes Percent Auto 21.2 % (20.5-60.0); Mean Corpuscular HGB Conc 32.1 g/dL (29.9-35.2); Mean Corpuscular Hemoglobin 32.2 pg (25.9-34.0); Mean Corpuscular Volume 100.5 fL (80.0-94.0); Mean Platelet Volume 10.5 fL (9.5-13.5); Monocytes Absolute Auto 1.3 10^3/uL (0.3-0.8); Monocytes Percent Auto 12.5 % (1.7-12.0); Neutrophils Absolute Auto 6.3 10^3/uL (1.4-6.5); Neutrophils Percent Auto 62.5 % (43.0-75.0); Platelet Count 216 10^3/uL (150-450); Red Blood Count 3.69 10^6/uL (4.70-6.10); Red Cell Distribution Width 13.3 % (11.0-15.0); White Blood Count 10.1 10^3/uL (4.0-11.0)
[2023-04-02 06:13] LABS: Alanine Aminotransferase 33 U/L (16-63); Albumin Globulin Ratio 0.8; Albumin Level 3.1 g/dL (3.4-5.0); Alkaline Phosphatase 62 U/L (46-116); Anion Gap 11.3; Aspartate Amino Transferase 40 U/L (15-37); BUN Creatinine Ratio 15.1; Bilirubin Total 0.8 mg/dL (0.2-1.0); Calcium 8.5 mg/dL (8.5-10.1); Carbon Dioxide 26.7 mmol/L (21.0-32.0); Chloride 105 mmol/L (98-107); Estimated GFR (African America 52 (>=60); Estimated GFR (Non-African Ame 43 (>=60); Globulin 3.8 g/dL; Glucose 124 mg/dL (74-106); Sodium 139 mmol/L (136-145); Total Protein 6.9 g/dL (6.4-8.2)
[2023-04-02] MEDS: FLUOXETINE HCL 10 MG CAPSULE PO (08:01)
[2023-04-02] MEDS: LORAZEPAM 2 MG/ML 1 ML VIAL IV (08:01)
[2023-04-02] MEDS: LISINOPRIL 10 MG TABLET PO (08:01)
[2023-04-02] MEDS: METOPROLOL SUCCINATE 50 MG TAB.ER.24H PO (08:01)
[2023-04-02] MEDS: MELOXICAM 7.5 MG TABLET 15 MG PO (08:01)
[2023-04-02] MEDS: THIAMINE MONONITRATE (VIT B1) 100 MG TABLET 50 MG PO (08:01)
[2023-04-02] MEDS: FOLIC ACID 1 MG TABLET PO (08:01)
[2023-04-02] MEDS: INSULIN DETEMIR 300 UNIT/3 ML INSULN.PEN 25 UNIT SUBQ (08:03)
--- NOTE | 2023-04-02 08:18 | PM.PN ---
Progress Note: Subjective Subjective Interval history: Patient seen this a.m. resting comfortably at bedside. POD#1 s/p right ankle subtalar joint fusion, delayed primary closure ulceration, excision of cuboid, KAPIL, harvest of tibial bone autograft, application short leg splint DOS 03/31/2023. Admits to mild pain in the right lower extremity. Controlled with p.o. meds. On CIWA protocol, denies any symptoms this AM. Denies any acute events overnight. Denies any other lower extremity complaints. Exam Constitutional Vital Signs, click to edit/add: Last Vital Signs Temp 98.7 F 04/02/23 05:08 Pulse 105 H 04/02/23 05:08 Resp 20 04/02/23 05:08 BP 132/75 04/02/23 05:08 Pulse Ox 93 L 04/02/23 05:08 O2 Del Method Room Air 04/02/23 05:08 O2 Flow Rate 2 03/31/23 09:10 Progress Note: Objective Labs Labs: Short CBC 04/02/23 Range/Units 04:55 WBC 10.1 (4.0-11.0) 10^3/uL Hgb 11.9 L (14.0-18.0) g/dL Hct 37.1 L (42.0-54.0) % Plt Count 216 (150-450) 10^3/uL BMP 04/02/23 04:55 Sodium 139 Potassium 4.0 Chloride 105 Carbon Dioxide 26.7 BUN 25.0 H Creatinine 1.66 H Glucose 124 H Calcium 8.5 Liver Function 04/02/23 Range/Units 04:55 Total Bilirubin 0.8 (0.2-1.0) mg/dL AST 40 H (15-37) U/L ALT 33 (16-63) U/L Alkaline Phosphatase 62 (46-116) U/L Albumin 3.1 L (3.4-5.0) g/dL Progress Note: A&P Assessment and Plan (1) Chronic osteomyelitis of right foot: (2) Diabetes: Qualifiers: Diabetes mellitus type: type 2 Diabetes mellitus mcc insulin use: with mcc use Diabetes mellitus complication status: with skin complications (3) Alcohol withdrawal syndrome: Qualifiers: Complication of substance-induced condition: uncomplicated Qualified Code(s): F10.930 - Alcohol use, unspecified with withdrawal, uncomplicated (4) Hypertension: (5) High cholesterol: (6) Need for assistance due to unsteady gait: (7) Diabetic neuropathy: Qualifiers: Diabetes mellitus type: type 2 Diabetes mellitus complication detail: diabetic polyneuropathy Qualified Code(s): E11.42 - Type 2 diabetes mellitus with diabetic polyneuropathy
--- NOTE | 2023-04-02 08:50 | PT.DAILY ---
Physical Therapy Daily Note PT Daily Note/Assess Start: 04/02/23 08:45 Freq: Status: Active Protocol: Document 04/02/23 08:45 JONMARYELLENGAMAPAWAN (Rec: 04/02/23 08:50 ANTONY [id number]) Physical Therapy Daily Note/Assessment Time In/Time Out Time In 08:15 Time Out 08:30 Pain In Pain N/A Pain Out Pain N/A Subjective Subjective Pt sitting EOB upon arrival. Agrees to PT. Rates foot pain 02/17. Therapeutic Activity Time Therapeutic Activity Minutes (minutes) 10 Therapeutic Activity Units 1 Therapeutic Activity Treatment Chair Transfer Ability Standby Assistance Therapeutic Activity Comments Pt sitting EOB. HE agrees to get into chair and while therapist is getting RW from restroom in his room he gets himself to BS chair while holding rail on bed - not maintaining NWB R LE. Once in chair pt is educated on importance of following the strict protocol for optimal results from his surgery. He verbalized understanding. Sit> stand from BS chair to RW - to focus on maintaining NWB in standing. Pt able to keep R foot off ground while completing hip and knee flexion ex. Attempts to hop but unable to maintain NWB for this. Pt returned to BS chair and feet are elevated. Once feet are elevated therapist noticed a spot of blood on bottom of R foot/on the dressing. There is a trail on blood around pt's room are well. It appears pt is getting up on his own and amb around room while not maintaining WBing status. Nursing is notified at this time. Total Physical Therapy Time Total Therapy Minutes 10 Total Physical Therapy Units 1 Summary Daily Note Summary Pt unreceptive to education regarding weight bearing status. Impulsive and transfers without assistance/ permission.
[2023-04-02 11:11] LABS: Glucometer 146 mg/dL (74-106)
[2023-04-02 11:34] VITALS: O2SAT 91
--- NOTE | 2023-04-02 12:21 | PM.DS1 ---
DS: Providers Provider Date of admission: 03/31/23 16:27 Primary care physician: Non-Staff Physician, Admitting clinician: Shaikh Magdiel Consults: 03/31/23 15:11 Consult to Electrician Manager Routine Has provider been notified: No Reason for consult:: Mcc Physical Therapy Eval and Treat Routine Reason for consultation: s/p R ankle and subtalar fusion, NWB RLE Has provider been notified: No Attending physician on discharge: Marilyn Zamorano DS: Diagnosis Discharge Diagnosis (1) Chronic osteomyelitis of right foot: (2) Diabetes: Qualifiers: Diabetes mellitus type: type 2 Diabetes mellitus remote computer terminal operator insulin use: with remote computer terminal operator use Diabetes mellitus complication status: with skin complications (3) Alcohol withdrawal syndrome: Qualifiers: Complication of substance-induced condition: uncomplicated Qualified Code(s): F10.930 - Alcohol use, unspecified with withdrawal, uncomplicated (4) Hypertension: (5) High cholesterol: (6) Need for assistance due to unsteady gait: (7) Diabetic neuropathy: Qualifiers: Diabetes mellitus type: type 2 Diabetes mellitus complication detail: diabetic polyneuropathy Qualified Code(s): E11.42 - Type 2 diabetes mellitus with diabetic polyneuropathy DS: Summary Hospital Course Hospital Course: 57 y o male was admitted for post op pain control/observation after he underwent right ankle and subtalar joint fusion, excision of cuboid and harvest of tibial bone graft. Patient has a long hx of heavy alcohol use on daily basis and appeared to be in alcohol withdrawal. He was provided Librium with break through Ativan. He takes xanax at home regularly. This morning was in no acute distress, was more steady with ambulation and transfers. He refuses to go to rehab facility and says he has everything he needs on one floor at home. He has crutches and a wheelchair and plans to get a scooter. He has follow up appt with Podiatry and all of his medications for pain control and antibiotics have been transmitted by their service to the pharmacy. He does not plan to quit drinking. He will be discharged home today with stopping meloxicam while on the Lovenox. He is to be non-weight baring on the right leg and he voiced understanding and risks if he does not restrict himself. Discharge home today with home health services. Time Spent with Patient Time attestation: Total time spent providing and/or coordinating discharge services: Time spent: less than 30 minutes Exam Narrative Exam Narrative: General: Patient is alert, and oriented to person, place and time with normal affect, proper hygiene Skin: no visible rashes, or ulcers Head: atraumatic, acephalic Eyes: PERRLA, no nystagmus present, conjunctiva clear, no scleral icterus Heart: Normal rate and rhythm, no murmurs/rubs/gallops Lungs: no audible wheezes, crackles and normal breath sounds all lung jay Musculoskeletal: splint/dressings are c/d/i of the right LE Neuro: CN II-X grossly intact, normal sensation upper and lower extremities Constitutional Vital Signs, click to edit/add: Last Vital Signs Temp 98.7 F 04/02/23 05:08 Pulse 105 H 04/02/23 05:08 Resp 20 04/02/23 05:08 BP 132/75 04/02/23 05:08 Pulse Ox 91 L 04/02/23 11:34 O2 Del Method Room Air 04/02/23 11:34 O2 Flow Rate 2 03/31/23 09:10 DS: Data Data Completed and Pending Labs on day of discharge: Labs from last 24 hours 04/02/23 04/02/23 04/01/23 11:10 04:55 22:27 WBC 10.1 RBC 3.69 L Hgb 11.9 L Hct 37.1 L MCV 100.5 H MCH 32.2 MCHC 32.1 RDW 13.3 Plt Count 216 MPV 10.5 Neut % (Auto) 62.5 Lymph % (Auto) 21.2 [place] % (Auto) 12.5 H Eos % (Auto) 2.5 Baso % (Auto) 0.8 Neut # (Auto) 6.3 Lymph # (Auto) 2.2 [place] # (Auto) 1.3 H Eos # (Auto) 0.3 Baso # (Auto) 0.1 Abs Immat Gran (auto) 0.05 H Imm/Tot Granulo (auto) 0.5 Sodium 139 Potassium 4.0 Chloride 105 Carbon Dioxide 26.7 Anion Gap 11.3 BUN 25.0 H Creatinine 1.66 H Est GFR ( Amer) 52 L Est GFR (Non-Af Amer) 43 L BUN/Creatinine Ratio 15.1 Glucose 124 H Calcium 8.5 Total Bilirubin 0.8 AST 40 H ALT 33 Alkaline Phosphatase 62 Total Protein 6.9 Albumin 3.1 L Globulin 3.8 Albumin/Globulin Ratio 0.8 Vitamin B12 710.0 Folate POC Glucose 146 H 184 H 04/01/23 04/01/23 16:37 14:20 WBC RBC Hgb Hct MCV MCH MCHC RDW Plt Count MPV Neut % (Auto) Lymph % (Auto) [place] % (Auto) Eos % (Auto) Baso % (Auto) Neut # (Auto) Lymph # (Auto) [place] # (Auto) Eos # (Auto) Baso # (Auto) Abs Immat Gran (auto) Imm/Tot Granulo (auto) Sodium Potassium Chloride Carbon Dioxide Anion Gap BUN Creatinine Est GFR ( Amer) Est GFR (Non-Af Amer) BUN/Creatinine Ratio Glucose Calcium Total Bilirubin AST ALT Alkaline Phosphatase Total Protein Albumin Globulin Albumin/Globulin Ratio Vitamin B12 Folate 22.20 POC Glucose 147 H Preliminary micro results at discharge 03/31/23 17:00 Tissue Culture - Preliminary Foot Right Discharge Plan Discharge Disposition: Home Health Service Discharge Medications: New alendronate [Fosamax] 70 mg tablet 70 mg PO QWEEK 84 Days Qty: 12 0RF cefadroxil 500 mg capsule 500 mg PO BID 14 Days Qty: 28 0RF cholecalciferol (vitamin D3) 125 mcg (5,000 unit) capsule 125 mcg PO DAILY 90 Days Qty: 90 0RF enoxaparin [Lovenox] 40 mg/0.4 mL syringe 40 mg subcut Q24H Qty: 4 3RF sennosides [Senna Laxative] 8.6 mg tablet 8.6 mg PO DAILY PRN (Reason: constipation) 7 Days Qty: 7 0RF oxycodone-acetaminophen [Percocet] 5-325 mg tablet 1 tab PO Q6H PRN (Reason: pain) 7 Days Qty: 28 0RF ondansetron 4 mg tablet,disintegrating 4 mg PO Q8H PRN (Reason: nausea and vomiting) 5 Days Qty: 15 0RF tizanidine 2 mg capsule 2 mg PO TID PRN (Reason: muscle spasticity) 7 Days Qty: 21 0RF Continued albuterol sulfate 90 mcg/actuation HFA aerosol inhaler 2 inh INHALATION Q6H PRN (Reason: shortness of breath or wheezing) alprazolam 1 mg tablet 1 mg PO TID atorvastatin 10 mg tablet 10 mg PO QDAY doxepin 50 mg capsule 150 mg PO QPM Jardiance 25 mg tablet 25 mg PO QDAY fluoxetine 10 mg capsule furosemide 20 mg tablet 20 mg PO QDAY PRN (Reason: edema) gabapentin 800 mg tablet 800 mg PO TID insulin glargine [Lantus Solostar U-100 Insulin] 100 unit/mL (3 mL) insulin pen 25 unit SUBCUT QAM insulin lispro 100 unit/mL insulin pen 14 unit SUBCUT BID lisinopril 10 mg tablet 10 mg PO QDAY metformin 500 mg tablet 500 mg PO TID metoprolol succinate 50 mg tablet extended release 24 hr 50 mg PO QDAY omeprazole 20 mg capsule,delayed release(DR/EC) 20 mg PO QDAY sildenafil 100 mg tablet 100 mg PO Q24H thiamine HCl (vitamin B1) 50 mg tablet 50 mg PO QDAY Discontinued amoxicillin-pot clavulanate 875-125 mg tablet 1 tab PO Q12H meloxicam 15 mg tablet 15 mg PO QDAY Activity: other Activity Detail: non weight baring to the right leg until cleared by podiatry as outpatient Diet: advance to your usual diet Side Stitching Machine Operator/Industrial Waste Treatment Technician Instructions: Discharge with [facility], phone number is [phone], start of care will be 04/04/23. Forms: Portal Instructions Follow Up Appointments: podiatry will call with appointment
--- NOTE | 2023-04-04 15:02 | CM.DCFOLLOWU ---
Person spoke with: patient How are you feeling? pain is controlled How is your pain? controlled Did you understand your discharge instructions? yes Do you have any questions about your discharge instructions? no Were you given any prescriptions at discharge? yes Were you able to get your prescriptions filled? yes Do you understand how to take your medications as ordered? yes Do you have any questions about your follow up appointment and do you plan to keep your follow up appointment? Was not aware to call podiatry to schedule follow up, advised to call and provided phone number Is there anything else that you would like to discuss? no Questions/Comments/Concerns/Other:
== END 2023-04-02 13:55 | disposition home health service (06) ==
LOC: MS 16:28
PROVIDERS: Anesthesiology; Internal Medicine; Podiatrist Foot & Ankle Surgery; Admitting Provider Family Medicine; Visit Provider Anesthesiology
PROC: (CPT 01470; principal; 2023-03-31 08:30)
DX: E11.621 Type 2 diabetes mellitus with foot ulcer (principal); L97.412 Non-pressure chronic ulcer of right heel and midfoot with fat layer exposed; L97.421 Non-pressure chronic ulcer of left heel and midfoot limited to breakdown of skin; M19.071 Primary osteoarthritis, right ankle and foot; S93.01XA Subluxation of right ankle joint, initial encounter; E11.69 Type 2 diabetes mellitus with other specified complication; M86.671 Other chronic osteomyelitis, right ankle and foot; E11.610 Type 2 diabetes mellitus with diabetic neuropathic arthropathy; I10 Essential (primary) hypertension; K21.9 Gastro-esophageal reflux disease without esophagitis; F17.210 Nicotine dependence, cigarettes, uncomplicated; Z79.4 Long term (current) use of insulin; Z79.899 Other long term (current) drug therapy; F10.239 Alcohol dependence with withdrawal, unspecified; E78.00 Pure hypercholesterolemia, unspecified; R26.81 Unsteadiness on feet; E11.40 Type 2 diabetes mellitus with diabetic neuropathy, unspecified; M21.6X1 Other acquired deformities of right foot
CPT/HCPCS: 01470; 01480; 27606; 27870; 28725; 36415; 64445; 64450; 73610; 73620; 73630; 76000; 76942; 80053; 80320; 82607; 82746; 82948; 85025; 87070; 87102; 87116; 87206; 88305; 88311; 94761; 96365; 96366; 96375; 97161; 97530; 99999; C1713; C1776; G0378; J1094; J1170; J2704; J3370

== ENCOUNTER 2023-04-06 15:51 | Outpatient (OUT) | payer MEDICARE, MEDICAID, SELFPAY | END 2023-04-06 15:52 | disposition home or self-care (01) | LOC: WC 15:51 | PROVIDERS: Visit Provider Podiatrist Foot & Ankle Surgery | DX: T81.89XA Other complications of procedures, not elsewhere classified, initial encounter (principal) | CPT/HCPCS: 29445 ==

== ENCOUNTER 2023-04-13 15:48 | Outpatient (OUT) | payer MEDICARE, SELFPAY | END 2023-04-13 15:49 | disposition home or self-care (01) | LOC: WC 15:48 | PROVIDERS: Visit Provider Podiatrist Foot & Ankle Surgery | DX: T81.89XA Other complications of procedures, not elsewhere classified, initial encounter (principal) | CPT/HCPCS: G0463 ==

== ENCOUNTER 2023-04-19 15:32 | Outpatient (OUT) | payer MEDICARE, MEDICAID, SELFPAY ==
--- NOTE | 2023-04-19 | XR_ITS ---
The [address] [address] Patient Name: GEREMIAS ARAYA MRN: [id number] date: 1965 Sex: M Assigned Patient Location: Current Patient Location: Accession/Order Number: [id number] Exam Date: 04/19/2023 14:10 Report Date: 04/19/2023 15:39 At the request of: NALYA OAKES Procedure: XR foot RT min 3V STUDY: XR foot RT min 3V, XR ankle RT min 3V, [id number], [id number] HISTORY: RIGHT FOOT PAIN AFTER FALL COMPARISON: Right foot x-rays 03/31/2023. FINDINGS: Plantar dislocation of the head of the talus with respect to the navicular bone, similar compared with 03/31/2023. Right fusion hardware are intact and similar alignment. No evidence of loosening or infection. Status post resection of the cuboid and distal aspect of the fibula, similar. No acute fracture or new/worsening malalignment demonstrated. XR/XR foot RT min 3V IMPRESSION: No acute osseous abnormality. Electronically authenticated by: LYNN TARIQ Date: 04/19/2023 15:39
--- NOTE | 2023-04-19 | XR_ITS ---
The [address] [address] Patient Name: GEREMIAS ARAYA MRN: [id number] date: 1965 Sex: M Assigned Patient Location: Current Patient Location: Accession/Order Number: [id number] Exam Date: 04/19/2023 14:10 Report Date: 04/19/2023 15:39 At the request of: NAYLA OAKES Procedure: XR ankle RT min 3V STUDY: XR foot RT min 3V, XR ankle RT min 3V, [id number], [id number] HISTORY: RIGHT FOOT PAIN AFTER FALL COMPARISON: Right foot x-rays 03/31/2023. FINDINGS: Plantar dislocation of the head of the talus with respect to the navicular bone, similar compared with 03/31/2023. Right fusion hardware are intact and similar alignment. No evidence of loosening or infection. Status post resection of the cuboid and distal aspect of the fibula, similar. No acute fracture or new/worsening malalignment demonstrated. XR/XR ankle RT min 3V IMPRESSION: No acute osseous abnormality. Electronically authenticated by: LYNN TARIQ Date: 04/19/2023 15:39
== END 2023-04-19 15:33 | disposition home or self-care (01) ==
LOC: WC 15:32
PROVIDERS: Visit Provider Podiatrist Foot & Ankle Surgery
DX: T81.89XA Other complications of procedures, not elsewhere classified, initial encounter (principal); S99.921A Unspecified injury of right foot, initial encounter
CPT/HCPCS: 11042; 29445; 73610; 73630; A6213

== ENCOUNTER 2023-04-26 15:07 | Outpatient (OUT) | payer MEDICARE, MEDICAID, SELFPAY | END 2023-04-26 15:08 | disposition home or self-care (01) | LOC: WC 15:07 | PROVIDERS: Visit Provider Podiatrist Foot & Ankle Surgery | DX: T81.89XA Other complications of procedures, not elsewhere classified, initial encounter (principal) | CPT/HCPCS: 11042; 29445 ==

== ENCOUNTER 2023-04-29 12:09 | Outpatient (OUT) | payer MEDICARE, MEDICAID, SELFPAY | END 2023-04-29 12:10 | disposition home or self-care (01) | LOC: WC 12:09 | PROVIDERS: Visit Provider Podiatrist Foot & Ankle Surgery | DX: T81.89XA Other complications of procedures, not elsewhere classified, initial encounter (principal) | CPT/HCPCS: 29445 ==

== ENCOUNTER 2023-05-04 13:54 | Outpatient (OUT) | payer MEDICARE, MEDICAID, SELFPAY ==
--- NOTE | 2023-05-04 | XR_ITS ---
The [address] [address] Patient Name: GEREMIAS ARAYA MRN: [id number] date: 1965 Sex: M Assigned Patient Location: Current Patient Location: Accession/Order Number: [id number] Exam Date: 05/04/2023 14:15 Report Date: 05/05/2023 15:03 At the request of: NYALA OAKES Procedure: XR ankle RT min 3V PROCEDURE: XR ankle RT min 3V, XR foot RT min 3V HISTORY: RIGHT ANKLE PAIN COMPARISON: XR right foot and ankle 04/19/2023 FINDINGS: BONES:Mechanical fusion of the ankle joint and hindfoot via intramedullary isabela and locking screws; no hardware fracture loosening. The locking screw for the medullary isabela entering from the posterior margin of the calcaneus appears deeper into the bone on today's study than previously seen. Prior resection of the distal fibula. Advanced degenerative changes and collapse of the midfoot. Prior resection of the cuneiform. SOFT TISSUES:Moderate swelling surrounding the ankle and proximal foot. EFFUSION:None visible. OTHER: Negative. XR/XR ankle RT min 3V IMPRESSION: 1. Posterior calcaneal locking screw within the medullary isabela is progressed deeper into the bone, 4 mm, and previously seen. 2. Otherwise stable hardware and chronic degenerative changes. Electronically authenticated by: TESS JHAVERI Date: 05/05/2023 15:03
--- NOTE | 2023-05-04 | XR_ITS ---
The [address] [address] Patient Name: GEREMIAS ARAYA MRN: [id number] date: 1965 Sex: M Assigned Patient Location: Current Patient Location: Accession/Order Number: [id number] Exam Date: 05/04/2023 14:15 Report Date: 05/05/2023 15:03 At the request of: NAYLA OAKES Procedure: XR foot RT min 3V PROCEDURE: XR ankle RT min 3V, XR foot RT min 3V HISTORY: RIGHT ANKLE PAIN COMPARISON: XR right foot and ankle 04/19/2023 FINDINGS: BONES:Mechanical fusion of the ankle joint and hindfoot via intramedullary isabela and locking screws; no hardware fracture loosening. The locking screw for the medullary isabela entering from the posterior margin of the calcaneus appears deeper into the bone on today's study than previously seen. Prior resection of the distal fibula. Advanced degenerative changes and collapse of the midfoot. Prior resection of the cuneiform. SOFT TISSUES:Moderate swelling surrounding the ankle and proximal foot. EFFUSION:None visible. OTHER: Negative. XR/XR foot RT min 3V IMPRESSION: 1. Posterior calcaneal locking screw within the medullary isabela is progressed deeper into the bone, 4 mm, and previously seen. 2. Otherwise stable hardware and chronic degenerative changes. Electronically authenticated by: TESS JHAVERI Date: 05/05/2023 15:03
== END 2023-05-04 13:55 | disposition home or self-care (01) ==
LOC: WC 13:54
PROVIDERS: Visit Provider Podiatrist Foot & Ankle Surgery
DX: T81.89XA Other complications of procedures, not elsewhere classified, initial encounter (principal); Z98.1 Arthrodesis status
CPT/HCPCS: 29445; 73610; 73630

== ENCOUNTER 2023-05-09 15:52 | Outpatient (OUT) | payer MEDICARE, MEDICAID, SELFPAY ==
--- NOTE | 2023-05-09 | XR_ITS ---
The [address] [address] Patient Name: GEREMIAS ARAYA MRN: [id number] date: 1965 Sex: M Assigned Patient Location: Current Patient Location: Accession/Order Number: [id number] Exam Date: 05/09/2023 15:49 Report Date: 05/09/2023 17:07 At the request of: NAYLA OAKES Procedure: XR ankle RT min 3V EXAM: XR ankle RT min 3V HISTORY: The patient is a 57-year-old male with RIGHT ANKLE PAIN COMPARISON: 05/04/2023. FINDINGS: The previously seen postsurgical changes, including the resection of the lateral malleolus and the intramedullary nail extending from the calcaneus into the tibia, are unchanged. There is no radiographic evidence of hardware loosening or failure. The overall alignment of the bones is unchanged. There does not appear to be solid bony fusion across the ankle joint. There are no new findings. XR/XR ankle RT min 3V IMPRESSION: No change. Electronically authenticated by: MERY GRIGSBY Date: 05/09/2023 17:07
== END 2023-05-09 15:53 | disposition home or self-care (01) ==
LOC: WC 15:52
PROVIDERS: Visit Provider Podiatrist Foot & Ankle Surgery
DX: M25.571 Pain in right ankle and joints of right foot (principal); T81.89XA Other complications of procedures, not elsewhere classified, initial encounter
CPT/HCPCS: 29445; 73610; A6213

== ENCOUNTER 2023-05-12 14:08 | Outpatient (OUT) | payer MEDICARE, MEDICAID, SELFPAY | END 2023-05-12 14:09 | disposition home or self-care (01) | LOC: WC 14:08 | PROVIDERS: Visit Provider Podiatrist Foot & Ankle Surgery | DX: T81.89XA Other complications of procedures, not elsewhere classified, initial encounter (principal) | CPT/HCPCS: 29445; A6213 ==

== ENCOUNTER 2023-05-17 14:45 | Outpatient (OUT) | payer MEDICARE, MEDICAID, SELFPAY ==
--- NOTE | 2023-05-17 | XR_ITS ---
The [address] [address] Patient Name: GEREMIAS ARAYA MRN: [id number] date: 1965 Sex: M Assigned Patient Location: Current Patient Location: Accession/Order Number: [id number] Exam Date: 05/17/2023 14:00 Report Date: 05/18/2023 09:22 At the request of: NAYLA OAKES Procedure: XR ankle RT min 3V EXAM: XR ankle RT min 3V, XR foot RT min 3V HISTORY: RIGHT ANKLE AND FOOT WOUND COMPARISON: Right ankle and foot x-rays 05/09/2023. XR/XR ankle RT min 3V IMPRESSION: 1. Redemonstrated is resection of the distal fibula. In addition, also again seen is arthrodesis of the tibiotalar and subtalar joints. No evidence of acute hardware complication. The anterior aspect of the calcaneus as well as the cuboid has been resected. 2. 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 Electronically authenticated by: JEFFREY PARRISH Date: 05/18/2023 09:22
--- NOTE | 2023-05-17 | XR_ITS ---
The [address] [address] Patient Name: GEREMIAS ARAYA MRN: [id number] date: 1965 Sex: M Assigned Patient Location: Current Patient Location: Accession/Order Number: [id number] Exam Date: 05/17/2023 14:00 Report Date: 05/18/2023 09:22 At the request of: NAYLA OAKES Procedure: XR foot RT min 3V EXAM: XR ankle RT min 3V, XR foot RT min 3V HISTORY: RIGHT ANKLE AND FOOT WOUND COMPARISON: Right ankle and foot x-rays 05/09/2023. XR/XR foot RT min 3V IMPRESSION: 1. Redemonstrated is resection of the distal fibula. In addition, also again seen is arthrodesis of the tibiotalar and subtalar joints. No evidence of acute hardware complication. The anterior aspect of the calcaneus as well as the cuboid has been resected. 2. 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 Electronically authenticated by: JEFFREY PARRISH Date: 05/18/2023 09:22
== END 2023-05-17 14:46 | disposition home or self-care (01) ==
LOC: WC 14:45
PROVIDERS: Visit Provider Podiatrist Foot & Ankle Surgery
DX: M25.571 Pain in right ankle and joints of right foot (principal); M79.671 Pain in right foot; T81.89XA Other complications of procedures, not elsewhere classified, initial encounter
CPT/HCPCS: 11042; 29445; 73610; 73630; A6213

== ENCOUNTER 2023-05-24 14:05 | Outpatient (OUT) | payer MEDICARE, MEDICAID, SELFPAY ==
--- NOTE | 2023-05-24 | XR_ITS ---
The [address] [address] Patient Name: GEREMIAS ARAYA MRN: [id number] date: 1965 Sex: M Assigned Patient Location: Current Patient Location: Accession/Order Number: [id number] Exam Date: 05/24/2023 03:10 Report Date: 05/25/2023 00:26 At the request of: NAYLA OAKES Procedure: XR foot RT min 3V PROCEDURE: XR foot RT min 3V, XR ankle RT min 3V HISTORY: RIGHT FOOT INJURY COMPARISON: XR foot and ankle right 05/17/2023 FINDINGS: BONES:Ankle and hindfoot fusion via intramedullary isabela and screws; no appreciable hardware fracture or loosening. Advanced degenerative changes versus posttraumatic changes of the midfoot; grossly stable allowing for differences in angulation. No acute fracture. Prior resection of distal fibula. SOFT TISSUES:. Soft tissue swelling surrounding the ankle and foot. EFFUSION:None visible. OTHER: Negative. XR/XR foot RT min 3V IMPRESSION: 1. Stable surgical changes and advanced degenerative changes of the right ankle and foot. Electronically authenticated by: TESS JHAVERI Date: 05/25/2023 00:26
--- NOTE | 2023-05-24 | XR_ITS ---
The [address] [address] Patient Name: GEREMIAS ARAYA MRN: [id number] date: 1965 Sex: M Assigned Patient Location: Current Patient Location: Accession/Order Number: [id number] Exam Date: 05/24/2023 03:10 Report Date: 05/25/2023 00:26 At the request of: NAYLA OAKES Procedure: XR ankle RT min 3V PROCEDURE: XR foot RT min 3V, XR ankle RT min 3V HISTORY: RIGHT FOOT INJURY COMPARISON: XR foot and ankle right 05/17/2023 FINDINGS: BONES:Ankle and hindfoot fusion via intramedullary isabela and screws; no appreciable hardware fracture or loosening. Advanced degenerative changes versus posttraumatic changes of the midfoot; grossly stable allowing for differences in angulation. No acute fracture. Prior resection of distal fibula. SOFT TISSUES:. Soft tissue swelling surrounding the ankle and foot. EFFUSION:None visible. OTHER: Negative. XR/XR ankle RT min 3V IMPRESSION: 1. Stable surgical changes and advanced degenerative changes of the right ankle and foot. Electronically authenticated by: TESS JHAVERI Date: 05/25/2023 00:26
== END 2023-05-24 14:06 | disposition home or self-care (01) ==
LOC: WC 14:05
PROVIDERS: Visit Provider Podiatrist Foot & Ankle Surgery
DX: L97.312 Non-pressure chronic ulcer of right ankle with fat layer exposed (principal); S99.921A Unspecified injury of right foot, initial encounter; S99.911A Unspecified injury of right ankle, initial encounter
CPT/HCPCS: 11043; 11046; 29445; 73610; 73630

== ENCOUNTER 2023-05-31 14:07 | Outpatient (OUT) | payer MEDICARE, MEDICAID, SELFPAY ==
--- OUTSIDE RECORDS SUMMARY | 2023-06-28 22:30 | XMS_ITS | CCD ---
Author Name Unknown Address [address] [place] [address] Organization [facility] Care Team Providers Care Crime Lab Technician Name Role Phone LENKA ROQUE Attending Unavailable ERICKA MONTIEL Primary Care UnavailEdilberto Rod Primary Care Physician Ericka Dotson Unavailable Unavailable Ericka Muniz Primary Care Physician Unavailab solomno Yates, Ayden Primary Care Physician Unavail able Trudy, Ayden Primary Care Physician Unavail able Trudy, Ayden Primary Care Physician Unavail able Edilberto Zamora Primary Care Physician Ericka Dotson Primary Care Physician UnavailEdilberto Herron Primary Care Physician Ericka Dotson Primary Care Physician Unavailab Ericka David Primary Care Physician Unavailab Ericka David Primary Care Provider Edilberto Zamora Primary Care Physician Edilberto Pendleton Primary Care Physician Ericka Dotson Primary Care Physician UnavailEricka Encarnacion Primary Care Provider Ericka Muniz Primary Care Physician Unavailab TARIK Pro Referring Unavailable ERICKA MUNIZ Primary Care Unavailable TESS ESCALONA Referring Unavailable ERICKA MUNIZ Primary Care Unavailable TESS ESCALONA Referring Unavailable ERICKA MUNIZ Primary Care Unavailable TESS ESCALONA Referring Unavailable ERICKA MUNIZ Primary Care Unavailable ERICKA MUNIZ Primary Care Unavailable MIGNON TOWNSEND Referring Unavailable MIGNON TOWNSEND Referring Unavailable ERICKA MUNIZ Primary Care Unavailable Edilberto Zamora Primary Care Physician Edilberto Pendleton Primary Care Physician Ericka Dotson Primary Care Physician Unavailab Ericka David Primary Care Physician Unavailab Ericka David Primary Care Physician Unavailab le Zamora, Edilberto L Primary Care Physician Unavai labsolomon Zamora, Edilberto L Primary Care Physician Unavai labsolomon Zamora, Edilberto L Primary Care Physician Unavai corinne Muniz, Ericka R Primary Care Physician Unavailab solomon Muniz, Ericka Shah Unavailable Unavailable Sera, Edilberto L Primary Care Physician Unavai labsolomon Zamora, Edilberto L Primary Care Physician Unavai labsolomon Zamora, Edilberto L Primary Care Physician Unavadanielle Muniz, Ericka Shah Primary Care Physician Unavailab le Dyana, Franky P Primary Care Physician Unavai lable Dyana, Franky P Primary Care Physician Unavai lable Dyana, Franky P Primary Care Physician Unavai labsolomon Zamora, Edilberto L Primary Care Physician Unavai labsolomon Zamora, Edilberto L Primary Care Physician Unavadanielle Muniz, Ericka R Primary Care Physician Unavailab solomon Dyana, Franky P Primary Care Physician Unavai lable [facility] Franky P Primary Care Physician Unavai lable [facility], Franky P Primary Care Physician Unavai lable NON STAFF Primary Care Provider UnavailSOLE Short Emergency Provider [phone] RADHA Novak Attending Provider [facility] Attending Provider NON STAFF Primary Care Provider UnavailSOLE Short Emergency Provider Dyana, CHERYL Yu Attending Provider RADHA Novak Attending Provider CHERYL Oakes Attending Provider [phone] RADHA Novak Attending Provider NON STAFF Primary Care Unavailable Vicente Turpiny P Admitting Unavailable Franky Turpin Attending Unavailable NON STAFF Primary Care Unavailable Sundar Turpinemy P Admitting Unavailable Franky Turpin P Attending Unavailable NON STAFF Primary Care Unavailable Nayla Oakes Admitting Unavailable Nayla Oakes Attending Unavailable Madison Mosher Admitting Unavailable Madison Mosher Attending Unavailable NON STAFF Primary Care Unavailable Fariha Novak Admitting Unavailable Fariha Novak Attending Unavailable NON STAFF Primary Care Unavailable Edilberto Zamora Primary Care Physician Edilberto Pendleton Primary Care Physician Farhat Turpin DPM, Franky Day Attending Farhat Munzi MD, Ericka Lane Primary Care Unavailable Ericka Muniz MD Consulting Unavailable [facility] Consulting Unavailable [facility] Consulting Unavailable Bo Pearce Referring Unavailable Flavio WHEELER, Ericka Lane Primary Care Unavailable Todd YEE, Ayanna Fabian Attending Un available Dyana LUNA, Franky Day Attending Farhat Muniz MD, Ericka Lane Primary Care Unavailable [facility] Consulting Unavailable NAYLA OAKES Admitting Unavailable SASHA FLAHERTY Consulting Unavailable NAYLA OAKES Attending Unavailable NAYLA OAKES Consulting Unavailable NAYLA OAKES Admitting Unavailable DR TESS JHAVERI Consulting Unavailable NAYLA OAKES Attending Unavailable NAYLA OAKES Consulting Unavailable NAYLA OAKES Attending Unavailable NAYLA OAKES Admitting Unavailable Medications Current Medications Medication Drug Class(es) Dates Sig (Normalized) Sig (Original) albuterol sulfate HFA 108 (90 Base) MCG/ACT inhaler (7 sources) take 2 puff(s) by inhalation every six hours as needed for wheezing albuterol sulfate HFA 108 (90 Base) MCG/ACT inhaler Inhale 2 puffs into the lungs every 6 hours as needed for Wheezing 0 Active aspirin 81 mg oral tablet (20 sources) Platelet Aggregation Inhibitor, Nonsteroidal Anti-inflammatory Drug Start: 04-14-2022 take 81 mg by mouth once daily Aspirin Active 81 MG PO Daily April 13, 2022 11:00pm take 1 tablet by mouth once gogo y aspirin 81 mg oral tablet,delayed release (DR/EC) take 1 tablet (81 mg) by oral route once daily calcium chloride 0.0014 meq/ml / potassium chloride 0.004 meq/ml / sodium chloride 0.103 meq/ml / sodium lactate 0.028 meq/ml injectable solution (1 source) Start: 12-28-2019 lactated ringe rs infusion 2 ml fentaNYL 0.05 mg/ml injection (2 sources) Opioid Agonist Start: 12-28-2019 fentaNYL (SUBL IMAZE) injection 50 mcg Start: 12-28-2019 fentaNYL (SUBL IMAZE) injection 25 mcg gabapentin 800 mg oral tablet (20 sources) Anti-epileptic Agent Start: 07-27-2022 End: 10-25-2022 take 1 tablet by mouth three times daily gabapentin 800 mg tablet 07/27/2022 10/25/2022 TAKE 1 TABLET BY MOUTH THREE TIMES DAILY Start: 11-30-2021 End: 05-24-2022 take 800 mg by mouth three times daily Gabapentin Active 800 MG PO Three times daily April 13, 2022 11:00pm Start: 08-24-2021 End: 09-23-2021 take 1 tablet by mouth three times daily gabapentin 800 mg tablet 08/24/2021 09/23/2021 TAKE 1 TABLET BY MOUTH THREE TIMES DAILY Start: 08-11-2020 End: 06-21-2021 take 1 tablet by mouth three times daily gabapentin 800 mg oral tablet 12/23/2020 06/21/2021 TAKE 1 TABLET BY MOUTH THREE TIMES DAILY Start: 07-07-2020 End: 08-06-2020 take 1 tablet by mouth three times daily gabapentin 800 mg oral tablet 07/07/2020 08/06/2020 TAKE 1 TABLET BY MOUTH THREE TIMES DAILY Start: 05-15-2020 End: 06-14-2020 take 1 tablet by mouth three times daily gabapentin 800 mg oral tablet 05/15/2020 06/14/2020 TAKE 1 TABLET BY MOUTH THREE TIMES DAILY Start: 11-16-2018 take 1 tablet by jina th three times daily gabapentin 800 mg oral tablet 08/13/2019 TAKE 1 TABLET BY MOUTH THREE TIMES DAILY Start: 06-03-2017 End: 06-03-2017 take 1 tablet by mouth three times daily gabapentin 600 mg oral tablet 06/03/2017 06/03/2017 TAKE ONE TABLET BY MOUTH THREE TIMES DAILY Start: 06-03-2017 End: 06-03-2017 take 1 tablet by mouth three times daily gabapentin 600 mg oral tablet 06/03/2017 06/03/2017 TAKE ONE TABLET BY MOUTH THREE TIMES DAILY Start: 06-03-2017 End: 06-03-2017 take 1 tablet by mouth three times daily gabapentin 600 mg oral tablet 06/03/2017 06/03/2017 TAKE ONE TABLET BY MOUTH THREE TIMES DAILY Start: 06-03-2017 End: 06-03-2017 take 1 tablet by mouth three times daily gabapentin 600 mg oral tablet 06/03/2017 06/03/2017 TAKE ONE TABLET BY MOUTH THREE TIMES DAILY Start: 06-03-2017 End: 06-03-2017 take 1 tablet by mouth three times daily gabapentin 600 mg oral tablet 06/03/2017 06/03/2017 TAKE ONE TABLET BY MOUTH THREE TIMES DAILY Start: 06-03-2017 End: 06-03-2017 take 1 tablet by mouth three times daily gabapentin 600 mg oral tablet 06/03/2017 06/03/2017 TAKE ONE TABLET BY MOUTH THREE TIMES DAILY Start: 06-03-2017 End: 06-03-2017 take 1 tablet by mouth three times daily gabapentin 600 mg oral tablet 06/03/2017 06/03/2017 TAKE ONE TABLET BY MOUTH THREE TIMES DAILY Start: 06-03-2017 End: 06-03-2017 take 1 tablet by mouth three times daily gabapentin 600 mg oral tablet 06/03/2017 06/03/2017 TAKE ONE TABLET BY MOUTH THREE TIMES DAILY Start: 06-03-2017 End: 06-03-2017 take 1 tablet by mouth three times daily gabapentin 600 mg oral tablet 06/03/2017 06/03/2017 TAKE ONE TABLET BY MOUTH THREE TIMES DAILY Start: 06-03-2017 End: 06-03-2017 take 1 tablet by mouth three times daily gabapentin 600 mg oral tablet 06/03/2017 06/03/2017 TAKE ONE TABLET BY MOUTH THREE TIMES DAILY Start: 06-03-2017 End: 06-03-2017 take 1 tablet by mouth three times daily gabapentin 600 mg oral tablet 06/03/2017 06/03/2017 TAKE ONE TABLET BY MOUTH THREE TIMES DAILY Start: 06-03-2017 End: 06-03-2017 take 1 tablet by mouth three times daily gabapentin 600 mg oral tablet 06/03/2017 06/03/2017 TAKE ONE TABLET BY MOUTH THREE TIMES DAILY Start: 06-03-2017 End: 06-03-2017 take 1 tablet by mouth three times daily gabapentin 600 mg oral tablet 06/03/2017 06/03/2017 TAKE ONE TABLET BY MOUTH THREE TIMES DAILY Start: 06-03-2017 End: 06-03-2017 take 1 tablet by mouth three times daily gabapentin 600 mg oral tablet 06/03/2017 06/03/2017 TAKE ONE TABLET BY MOUTH THREE TIMES DAILY Start: 06-03-2017 End: 06-03-2017 take 1 tablet by mouth three times daily gabapentin 600 mg oral tablet 06/03/2017 06/03/2017 TAKE ONE TABLET BY MOUTH THREE TIMES DAILY Start: 06-03-2017 End: 06-03-2017 take 1 tablet by mouth three times daily gabapentin 600 mg oral tablet 06/03/2017 06/03/2017 TAKE ONE TABLET BY MOUTH THREE TIMES DAILY Start: 06-03-2017 End: 06-03-2017 take 1 tablet by mouth three times daily gabapentin 600 mg oral tablet 06/03/2017 06/03/2017 TAKE ONE TABLET BY MOUTH THREE TIMES DAILY Start: 06-03-2017 End: 06-03-2017 take 1 tablet by mouth three times daily gabapentin 600 mg oral tablet 06/03/2017 06/03/2017 TAKE ONE TABLET BY MOUTH THREE TIMES DAILY Start: 06-03-2017 End: 06-03-2017 take 1 tablet by mouth three times daily gabapentin 600 mg oral tablet 06/03/2017 06/03/2017 TAKE ONE TABLET BY MOUTH THREE TIMES DAILY Start: 06-03-2017 End: 06-03-2017 take 1 tablet by mouth three times daily gabapentin 600 mg oral tablet 06/03/2017 06/03/2017 TAKE ONE TABLET BY MOUTH THREE TIMES DAILY Start: 06-03-2017 End: 06-03-2017 take 1 tablet by mouth three times daily gabapentin 600 mg oral tablet 06/03/2017 06/03/2017 TAKE ONE TABLET BY MOUTH THREE TIMES DAILY Start: 06-03-2017 End: 06-03-2017 take 1 tablet by mouth three times daily gabapentin 600 mg oral tablet 06/03/2017 06/03/2017 TAKE ONE TABLET BY MOUTH THREE TIMES DAILY Start: 06-03-2017 End: 06-03-2017 take 1 tablet by mouth three times daily gabapentin 600 mg oral tablet 06/03/2017 06/03/2017 TAKE ONE TABLET BY MOUTH THREE TIMES DAILY Start: 06-03-2017 End: 06-03-2017 take 1 tablet by mouth three times daily gabapentin 600 mg oral tablet 06/03/2017 06/03/2017 TAKE ONE TABLET BY MOUTH THREE TIMES DAILY Start: 06-03-2017 End: 06-03-2017 take 1 tablet by mouth three times daily gabapentin 600 mg oral tablet 06/03/2017 06/03/2017 TAKE ONE TABLET BY MOUTH THREE TIMES DAILY Start: 06-03-2017 End: 06-03-2017 take 1 tablet by mouth three times daily gabapentin 600 mg oral tablet 06/03/2017 06/03/2017 TAKE ONE TABLET BY MOUTH THREE TIMES DAILY Start: 06-03-2017 End: 06-03-2017 take 1 tablet by mouth three times daily gabapentin 600 mg oral tablet 06/03/2017 06/03/2017 TAKE ONE TABLET BY MOUTH THREE TIMES DAILY Start: 06-03-2017 End: 06-03-2017 take 1 tablet by mouth three times daily gabapentin 600 mg oral tablet 06/03/2017 06/03/2017 TAKE ONE TABLET BY MOUTH THREE TIMES DAILY Start: 06-03-2017 End: 06-03-2017 take 1 tablet by mouth three times daily gabapentin 600 mg oral tablet 06/03/2017 06/03/2017 TAKE ONE TABLET BY MOUTH THREE TIMES DAILY Start: 06-03-2017 End: 06-03-2017 take 1 tablet by mouth three times daily gabapentin 600 mg oral tablet 06/03/2017 06/03/2017 TAKE ONE TABLET BY MOUTH THREE TIMES DAILY Start: 06-03-2017 End: 06-03-2017 take 1 tablet by mouth three times daily gabapentin 600 mg oral tablet 06/03/2017 06/03/2017 TAKE ONE TABLET BY MOUTH THREE TIMES DAILY Start: 06-03-2017 End: 06-03-2017 take 1 tablet by mouth three times daily gabapentin 600 mg oral tablet 06/03/2017 06/03/2017 TAKE ONE TABLET BY MOUTH THREE TIMES DAILY Start: 06-03-2017 End: 06-03-2017 take 1 tablet by mouth three times daily gabapentin 600 mg oral tablet 06/03/2017 06/03/2017 TAKE ONE TABLET BY MOUTH THREE TIMES DAILY Start: 06-03-2017 End: 06-03-2017 take 1 tablet by mouth three times daily gabapentin 600 mg oral tablet 06/03/2017 06/03/2017 TAKE ONE TABLET BY MOUTH THREE TIMES DAILY Start: 06-03-2017 End: 06-03-2017 take 1 tablet by mouth three times daily gabapentin 600 mg oral tablet 06/03/2017 06/03/2017 TAKE ONE TABLET BY MOUTH THREE TIMES DAILY Start: 06-03-2017 End: 06-03-2017 take 1 tablet by mouth three times daily gabapentin 600 mg oral tablet 06/03/2017 06/03/2017 TAKE ONE TABLET BY MOUTH THREE TIMES DAILY Start: 06-03-2017 End: 06-03-2017 take 1 tablet by mouth three times daily gabapentin 600 mg oral tablet 06/03/2017 06/03/2017 TAKE ONE TABLET BY MOUTH THREE TIMES DAILY Start: 06-03-2017 End: 06-03-2017 take 1 tablet by mouth three times daily gabapentin 600 mg oral tablet 06/03/2017 06/03/2017 TAKE ONE TABLET BY MOUTH THREE TIMES DAILY Start: 06-03-2017 End: 06-03-2017 take 1 tablet by mouth three times daily gabapentin 600 mg oral tablet 06/03/2017 06/03/2017 TAKE ONE TABLET BY MOUTH THREE TIMES DAILY Start: 06-03-2017 End: 06-03-2017 take 1 tablet by mouth three times daily gabapentin 600 mg oral tablet 06/03/2017 06/03/2017 TAKE ONE TABLET BY MOUTH THREE TIMES DAILY Start: 06-03-2017 End: 06-03-2017 take 1 tablet by mouth three times daily gabapentin 600 mg oral tablet 06/03/2017 06/03/2017 TAKE ONE TABLET BY MOUTH THREE TIMES DAILY Start: 06-03-2017 End: 06-03-2017 take 1 tablet by mouth three times daily gabapentin 600 mg oral tablet 06/03/2017 06/03/2017 TAKE ONE TABLET BY MOUTH THREE TIMES DAILY Start: 06-03-2017 End: 06-03-2017 take 1 tablet by mouth three times daily gabapentin 600 mg oral tablet 06/03/2017 06/03/2017 TAKE ONE TABLET BY MOUTH THREE TIMES DAILY Start: 06-03-2017 End: 06-03-2017 take 1 tablet by mouth three times daily gabapentin 600 mg oral tablet 06/03/2017 06/03/2017 TAKE ONE TABLET BY MOUTH THREE TIMES DAILY Start: 06-03-2017 End: 06-03-2017 take 1 tablet by mouth three times daily gabapentin 600 mg oral tablet 06/03/2017 06/03/2017 TAKE ONE TABLET BY MOUTH THREE TIMES DAILY Start: 06-03-2017 End: 06-03-2017 take 1 tablet by mouth three times daily gabapentin 600 mg oral tablet 06/03/2017 06/03/2017 TAKE ONE TABLET BY MOUTH THREE TIMES DAILY Start: 06-03-2017 End: 06-03-2017 take 1 tablet by mouth three times daily gabapentin 600 mg oral tablet 06/03/2017 06/03/2017 TAKE ONE TABLET BY MOUTH THREE TIMES DAILY Start: 06-03-2017 End: 06-03-2017 take 1 tablet by mouth three times daily gabapentin 600 mg oral tablet 06/03/2017 06/03/2017 TAKE ONE TABLET BY MOUTH THREE TIMES DAILY Start: 06-03-2017 End: 06-03-2017 take 1 tablet by mouth three times daily gabapentin 600 mg oral tablet 06/03/2017 06/03/2017 TAKE ONE TABLET BY MOUTH THREE TIMES DAILY Start: 06-03-2017 End: 06-03-2017 take 1 tablet by mouth three times daily gabapentin 600 mg oral tablet 06/03/2017 06/03/2017 TAKE ONE TABLET BY MOUTH THREE TIMES DAILY Start: 06-03-2017 End: 06-03-2017 take 1 tablet by mouth three times daily gabapentin 600 mg oral tablet 06/03/2017 06/03/2017 TAKE ONE TABLET BY MOUTH THREE TIMES DAILY Start: 06-03-2017 End: 06-03-2017 take 1 tablet by mouth three times daily gabapentin 600 mg oral tablet 06/03/2017 06/03/2017 TAKE ONE TABLET BY MOUTH THREE TIMES DAILY Start: 06-03-2017 End: 06-03-2017 take 1 tablet by mouth three times daily gabapentin 600 mg oral tablet 06/03/2017 06/03/2017 TAKE ONE TABLET BY MOUTH THREE TIMES DAILY Start: 03-18-2016 End: 08-03-2016 take 1 tablet by mouth three times daily Neurontin 600 mg oral tablet 03/18/2016 08/03/2016 take 1 tablet (600 mg) by oral route 3 times per day 3 ml insulin lispro 100 unt/ml pen injector (20 sources) Insulin Analog Start: 04-14-2022 inject 12 [IU] by subcutaneous injection three times daily Insulin Lispro Active 12 UNIT SUBCUT Three times daily April 13, 2022 11:00pm Start: 08-05-2020 End: 01-15-2022 Humalog KwikPen Insulin 100 unit/mL subcutaneous insulin pen 08/05/2020 01/15/2022 inject 12 units w/meals, prime w/ 2 units each use Start: 04-08-2020 End: 07-30-2020 insulin lispro 100 unit/mL s ubcutaneous insulin pen 04/08/2020 07/30/2020 INJECT 12 UNITS SUBCUTANEOUSLY WITH MEALS --PRIME PEN WITH 2 UNITS EACH USE Switched to Novlog Start: 10-11-2019 insulin lispro 100 unit/mL subcutaneous insulin pen 10/11/2019 INJECT 12 UNITS SUBCUTANEOUSLY WITH MEALS --PRIME PEN WITH 2 UNITS EACH USE Start: 05-28-2019 End: 11-26-2019 Humalog KwikPen Insulin 100 unit/mL subcutaneous insulin pen 05/28/2019 11/26/2019 inject 10 units with each meal, prime pen with 2 units each use. Start: 12-12-2018 Humalog KwikPe n Insulin 100 unit/mL subcutaneous insulin pen 12/12/2018 inject 7 units with each meal, prime pen with 2 units each use. Start: 03-20-2018 End: 10-02-2018 Humalog U-100 Insulin 100 un it/mL subcutaneous solution 03/20/2018 10/02/2018 inject 10 units with each meal and 5 units with snacks, has not taken since stopoing VGO Start: 11-30-2016 End: 12-13-2017 Humalog KwikPen 100 unit/mL subcutaneous insulin pen 11/30/2016 12/13/2017 inject 6 units TID with meals. prime pen with 2 units each use. insulin lispro ( HUMALOG) 100 UNIT/ML injection vial Inject 12 Units into the skin 3 times daily (before meals) 0 Active Insulin Lispro (1 Unit Dial) 100 UNIT/ML Subcutaneous Solution Pen-injector (20 sources) Start: 04-05-2022 End: 09-27-2022 Insulin Lispro (1 Unit Dial) 100 UNIT/ML Subcutaneous Solution Pen-injector 04/05/2022 09/27/2022 INJECT 12 UNITS SUBCUTANEOUSLY WITH MEALS. PRIME WITH 2 UNITS EACH USE Start: 11-24-2021 End: 04-13-2022 Insulin Lispro (1 Unit Dial) 100 UNIT/ML Subcutaneous Solution Pen-injector 11/24/2021 04/13/2022 INJECT 12 UNITS SUBCUTANEOUSLY WITH MEALS. PRIME WITH 2 UNITS EACH USE 4 ml labetalol hydrochloride 5 mg/ml cartridge (1 source) beta-Adrenergic Brooks Start: 12-28-2019 labetalol (NORMODYNE;TRANDATE) injection 5 mg lisinopril 5 mg oral tablet (20 sources) Angiotensin Converting Enzyme Inhibitor Start: 04-14-2022 take 5 mg by mouth once daily Lisinopril Active 5 MG PO Daily April 13, 2022 11:00pm Start: 08-30-2018 End: 12-12-2018 take 1 tablet by mouth once daily lisinopril 10 mg oral tablet 08/30/2018 12/12/2018 take 1 tablet (10 mg) by oral route once daily for 90 days Pt stopped due to lightheaded upon standing Start: 06-03-2015 End: 12-09-2015 take 1 tablet by mouth once daily lisinopril 10 mg oral tablet 06/03/2015 12/09/2015 take 1 tablet (10 mg) by oral route once daily metFORMIN hydrochloride 500 mg oral tablet (20 sources) Biguanide Start: 04-14-2022 End: 02-21-2023 take 1 tablet by mouth three times daily metFORMIN HCl 500 MG Oral Tablet 05/27/2022 02/21/2023 TAKE 1 TABLET BY MOUTH THREE TIMES DAILY Start: 09-03-2021 take 1 tablet by jina th three times daily metformin 500 mg oral tablet 09/03/2021 TAKE ONE TABLET BY MOUTH THREE TIMES DAILY Start: 09-08-2020 End: 10-08-2020 take 1 tablet by mouth three times daily metformin 500 mg oral tablet 09/08/2020 TAKE ONE TABLET BY MOUTH THREE TIMES DAILY Start: 03-01-2018 take 1 tablet by jina th three times daily metformin 500 mg oral tablet 06/11/2019 TAKE ONE TABLET BY MOUTH THREE TIMES DAILY Start: 08-26-2015 End: 10-03-2015 take 1 tablet by mouth twice daily at dinner metformin 500 mg oral tablet 08/26/2015 10/03/2015 take 1 tablet (500 mg) by oral route 2 times per day with morning and evening meals 2 ml metoclopramide 5 mg/ml prefilled syringe (1 source) Dopamine-2 Receptor Antagonist Start: 12-28-2019 End: 12-28-2019 metoclopramide (REGLAN) injection 10 mg 24 hr metoprolol succinate 25 mg extended release oral tablet (20 sources) beta-Adrenergic Brooks Start: 04-14-2022 take 25 mg by mouth once daily Metoprolol Succinate Active 25 MG PO Daily April 13, 2022 11:00pm Start: 10-25-2018 End: 01-25-2019 take 0.5 tablet by mouth twice daily metoprolol tartrate 50 mg oral tablet 10/25/2018 01/25/2019 TAKE 1/2 (ONE-HALF) TABLET BY MOUTH TWICE DAILY became dizzy, passed out Start: 09-01-2017 End: 06-19-2018 take 0.5 tablet by mouth twice daily metoprolol tartrate 50 mg oral tablet 09/01/2017 06/19/2018 take 0.5 tablet by oral route 2 times a day stopped on own. falling down End: 08-05-2020 take 0.5 tablet by mouth twice daily metoprolol tartrate 25 mg oral tablet 08/05/2020 take 0.5 tablet by oral route 2 times a day take 1 tablet by jina th twice daily metoprolol tartrate (LOPRESSOR) 25 MG tablet Take 25 mg by mouth 2 times daily 0 Active omega-3 acid ethyl esters (detention) 1200 mg oral capsule (6 sources) [place]-3 Fatty Ac ids (FISH OIL) 1200 MG CAPS Take by mouth daily 0 Active [place]-3 Fatty Acids (FISH OIL) 1200 MG CAPS (1 source) [place]-3 Fatty Ac ids (FISH OIL) 1200 MG CAPS Take by mouth daily 0 Active [place]-3 Fatty Acids (Fish Oil) Capsule (4 sources) Start: 04-14-2022 take 1 capsule by mouth once daily [place]-3 Fatty Acids (Fish Oil) Capsule Active 1000 MG PO Daily April 13, 2022 11:00pm Start: 04-14-2022 take 1 capsule by mouth once d aily [place]-3 Fatty Acids (Fish Oil) Capsule Active 1000 MG PO Daily April 14, 2022 12:00am omeprazole 20 mg delayed release oral capsule (20 sources) Proton Pump Inhibitor Start: 02-17-2022 End: 07-22-2023 take 1 capsule by mouth once daily before mealtime omeprazole 20 mg capsule,delayed release 07/27/2022 07/22/2023 take 1 capsule (20 mg) by oral route once daily before a meal for 90 days Start: 02-21-2020 End: 07-27-2022 take 1 tablet by mouth once daily as needed Prilosec OTC 20 mg oral tablet,delayed release (DR/EC) 02/21/2020 07/27/2022 take 1 tablet by oral route daily as needed End: 04-17-2019 take 1 capsule by mouth once daily omeprazole 40 mg oral capsule,delayed release(DR/EC) 04/17/2019 take 1 capsule by oral route daily take 1 tablet by jina th once daily Prilosec OTC 20 mg oral tablet,delayed release (DR/EC) take 1 tablet by oral route daily 2 ml ondansetron 2 mg/ml injection (1 source) Serotonin-3 Receptor Antagonist Start: 12-28-2019 End: 12-28-2019 ondansetron (ZOFRAN) injection 4 mg oxyCODONE hydrochloride 5 mg oral tablet (2 sources) Opioid Agonist Start: 12-28-2019 End: 12-28-2019 oxyCODONE (ROXICODONE) immediate release tablet 5 mg sildenafil 100 mg oral tablet (20 sources) Phosphodiesterase 5 Inhibitor Start: 09-03-2021 End: 10-25-2022 take 1 tablet by mouth once daily as needed sildenafil 100 mg oral tablet 07/27/2022 10/25/2022 take 1 tablet (100 mg) by oral route once daily as needed approximately 1 hour before sexual activity for 90 days Start: 02-21-2020 End: 02-15-2021 take 1 tablet by mouth once daily as needed sildenafil 100 mg oral tablet 02/21/2020 02/15/2021 take 1 tablet (100 mg) by oral route once daily as needed approximately 1 hour before sexual activity for 90 days 3 ml sodium chloride 9 mg/ml injection (2 sources) Start: 12-28-2019 sodium chlorid e flush 0.9 % injection 10 mL thiamine 50 mg oral tablet (20 sources) Start: 12-27-2019 End: 07-22-2023 take 1 tablet by mouth once daily Vitamin B-1 50 mg tablet 07/27/2022 07/22/2023 Take 1 tablet by mouth once daily Start: 12-12-2018 End: 04-17-2019 take 1 tablet by mouth once daily thiamine HCl (vitamin B1) 50 mg oral tablet 12/12/2018 04/17/2019 take 1 tablet by oral route daily Thiamine HCl ( TAMIN B-1 PO) Take by mouth daily 0 Active vitamin b6 50 mg oral tablet (20 sources) Start: 11-06-2021 End: 09-25-2022 take 1 tablet by mouth once daily Vitamin B-6 50 mg tablet 03/29/2022 09/25/2022 Take 1 tablet by mouth once daily Start: 12-27-2019 End: 04-10-2021 take 1 tablet by mouth once daily pyridoxine (vitamin B6) 50 mg oral tablet 12/27/2019 09/09/2020 take 1 tablet by oral route daily Start: 12-12-2018 End: 04-17-2019 take 1 tablet by mouth once daily pyridoxine (vitamin B6) 50 mg oral tablet 12/12/2018 04/17/2019 take 1 tablet by oral route daily Completed/Discontinued Medications Medication Drug Class(es) Dates Sig (Normalized) Sig (Original) acetaminophen 325 mg / HYDROcodone bitartrate 5 mg oral tablet (20 sources) Opioid Agonist Start: 07-13-2017 End: 10-02-2018 take 1 tablet by mouth every six hours as needed for pain hydrocodone-aceta minophen 5-325 mg oral tablet 07/13/2017 10/02/2018 take 1 tablet by oral route every 6 hours as needed for pain acetaminophen 325 mg / oxyCODONE hydrochloride 5 mg oral tablet (1 source) Opioid Agonist Start: 12-28-2019 End: 01-04-2020 take 1-2 tablets by mouth every four to six hours as needed for pain oxyCODONE-acetami nophen (PERCOCET) 5-325 MG per tablet Indications: 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, initial encounter Take 1-2 tablets by mouth every 4-6 hours as needed for Pain for up to 7 days. 56 tablet 0 12/28/2019 01/04/2020 Active [id number] 200 actuat albuterol 0.09 mg/actuat metered dose inhaler (20 sources) beta2-Adrenergic Agonist Start: 05-11-2022 take 1 puff(s) by mouth every six hours as needed Ventolin HFA 90 mcg/actuation aerosol inhaler 05/11/2022 INHALE 1 PUFF BY MOUTH EVERY 6 HOURS NEEDED Start: 03-06-2021 take 1 puff(s) by [facility] every six hours as needed Ventolin HFA 90 mcg/actuation aerosol inhaler 03/06/2021 INHALE 1 PUFF BY MOUTH EVERY 6 HOURS NEEDED Start: 10-20-2020 take 1 puff(s) by [facility] every six hours as needed Ventolin HFA 90 mcg/actuation inhalation HFA aerosol inhaler 10/20/2020 INHALE 1 PUFF BY MOUTH EVERY 6 HOURS NEEDED Start: 04-23-2020 take 1 puff(s) by [facility] every six hours as needed Ventolin HFA 90 mcg/actuation inhalation HFA aerosol inhaler 04/23/2020 INHALE 1 PUFF BY MOUTH EVERY 6 HOURS NEEDED Start: 03-14-2019 take 1 puff(s) by [facility] every six hours as needed Ventolin HFA 90 mcg/actuation inhalation HFA aerosol inhaler 03/14/2019 INHALE 1 PUFF BY MOUTH EVERY 6 HOURS NEEDED Start: 10-05-2017 take 1 puff(s) by mo [facility] every six hours as needed Ventolin HFA 90 mcg/actuation inhalation HFA aerosol inhaler 10/05/2017 INHALE 1 PUFF BY MOUTH EVERY 6 HOURS NEEDED Start: 09-01-2017 End: 12-13-2017 take 1 puff(s) by inhalation every six hours as needed ProAir HFA 90 mcg/actuation inhalation HFA aerosol inhaler 09/01/2017 12/13/2017 inhale 1 puff (90 mcg) by inhalation route every 6 hours as needed duplicate Start: 09-01-2017 End: 12-13-2017 take 1 puff(s) by inhalation every six hours as needed ProAir HFA 90 mcg/actuation inhalation HFA aerosol inhaler 09/01/2017 12/13/2017 inhale 1 puff (90 mcg) by inhalation route every 6 hours as needed duplicate ALPRAZolam 1 mg oral tablet (20 sources) Benzodiazepine Start: 03-11-2021 take 1 tablet by mouth three times daily alprazolam 1 mg tablet 03/10/2022 take 1 tablet (1 mg) by oral route 3 times per day for 90 days..DX: F41.8 Start: 08-25-2020 take 1 tablet by jina three times daily alprazolam 1 mg oral tablet 08/25/2020 take 1 tablet (1 mg) by oral route 3 times per day for 90 days..DX: F41.8 Start: 02-19-2020 take 1 tablet by jina th three times daily alprazolam 1 mg oral tablet 02/19/2020 take 1 tablet (1 mg) by oral route 3 times per day for 90 days..DX: F41.8 Start: 08-17-2019 take 1 tablet by jina three times daily alprazolam 1 mg oral tablet 08/17/2019 take 1 tablet (1 mg) by oral route 3 times per day for 90 days..DX: F41.8 Start: 02-08-2019 take 1 tablet by jina three times daily alprazolam 1 mg oral tablet 02/08/2019 take 1 tablet (1 mg) by oral route 3 times per day for 90 days..DX: F41.8 Start: 08-09-2018 take 1 tablet by jina th three times daily alprazolam 1 mg oral tablet 08/09/2018 take 1 tablet (1 mg) by oral route 3 times per day for 90 days..DX: F41.8 amitriptyline hydrochloride 50 mg oral tablet (20 sources) Tricyclic Antidepressant End: 08-26-2015 take 1-2 tablets by mouth once daily at bedtime as needed amitriptyline 50 mg oral tablet 08/26/2015 take 1-2 tablets by oral route once daily at bedtime as needed amoxicillin 875 mg oral tablet (20 sources) Penicillin-class Antibacterial Start: 06-04-2020 End: 06-14-2020 take 1 tablet by mouth every twelve hours amoxicillin 875 mg oral tablet 06/04/2020 06/14/2020 take 1 tablet (875 mg) by oral route every 12 hours for 10 days take 1 tablet by jina th three times daily amoxicillin 500 mg oral tablet take 1 ta blet (500 mg) by oral route 3 times per day atorvastatin 20 mg oral tablet (20 sources) HMG-CoA Reductase Inhibitor Start: 07-27-2022 take 1 tablet by mouth once daily atorvastatin 20 mg tablet 07/27/2022 take 1 tablet (20 mg) by oral route once daily Start: 04-14-2022 take 10 mg by mouth once daily at bedtime Atorvastatin Active 10 MG PO Daily at bedtime April 13, 2022 11:00pm Start: 04-22-2021 take 1 tablet by jina once daily at bedtime atorvastatin 10 mg oral tablet 09/03/2021 TAKE ONE TABLET BY MOUTH ONCE DAILY AT BEDTIME Start: 04-23-2020 take 1 tablet by jina th once daily at bedtime atorvastatin 10 mg oral tablet 04/23/2020 TAKE ONE TABLET BY MOUTH ONCE DAILY AT BEDTIME Start: 08-30-2018 take 1 tablet by jina th once daily at bedtime atorvastatin 10 mg oral tablet 08/30/2018 TAKE ONE TABLET BY MOUTH ONCE DAILY AT BEDTIME Start: 06-03-2015 End: 12-03-2015 take 1 tablet by mouth once daily at bedtime Lipitor 10 mg oral tablet 06/03/2015 12/03/2015 take 1 tablet (10 mg) by oral route once daily at bedtime duplicate 24 hr buPROPion hydrochloride 150 mg extended release oral tablet (20 sources) Aminoketone Start: 12-17-2020 End: 06-15-2021 take 1 tablet by mouth once daily Wellbutrin XL 150 mg oral tablet extended release 24 hr 12/17/2020 06/15/2021 take 1 tablet (150 mg) by oral route once daily for 30 days Start: 04-23-2020 End: 10-20-2020 take 1 tablet by mouth once daily Wellbutrin XL 150 mg oral tablet extended release 24 hr 04/23/2020 10/20/2020 take 1 tablet (150 mg) by oral route once daily for 30 days Start: 01-10-2020 End: 03-10-2020 take 1 tablet by mouth once daily Wellbutrin XL 150 mg oral tablet extended release 24 hr 01/10/2020 03/10/2020 take 1 tablet (150 mg) by oral route once daily for 30 days canagliflozin 300 mg oral tablet (20 sources) Sodium-Glucose Cotransporter 2 Inhibitor Start: 10-06-2018 End: 08-28-2019 take 1 tablet by mouth once daily at mealtime Invokana 300 mg oral tablet 10/06/2018 08/28/2019 TAKE ONE TABLET BY MOUTH ONCE DAILY BEFORE FIRST MEAL OF THE DAY ceFAZolin (ANCEF) 2 g in dextrose 5 % 100 mL IVPB (1 source) Start: 12-28-2019 End: 12-28-2019 ceFAZolin (ANCEF) 2 g in dextrose 5 % 100 mL IVPB clindamycin 300 mg oral capsule (20 sources) Lincosamide Antibacterial Start: 04-05-2022 End: 04-19-2022 take 1 capsule by mouth twice daily clindamycin HCl 300 mg capsule 04/05/2022 04/19/2022 take 1 capsule (300 mg) by oral route 2 times per day for 14 days End: 08-12-2015 take 1 capsule by mouth every six hours Cleocin 300 mg oral capsule 08/12/2015 take 1 capsule (300 mg) by oral route every 6 hours dexamethasone 1 mg oral tablet (20 sources) Corticosteroid Start: 11-06-2015 take 8 tablets by mouth in the morning, then take 1 tablet by mouth in the evening dexamethasone 1 mg oral tablet 11/06/2015 check 8 am Cortisol after taking 1 mgm Dexamethasone at 11 pm doxepin hydrochloride 50 mg oral capsule (20 sources) Tricyclic Antidepressant Start: 07-27-2022 take 3-4 capsules by mouth at bedtime doxepin 50 mg capsule 07/27/2022 TAKE 3 TO 4 CAPSULES BY MOUTH AT BEDTIME Start: 04-14-2022 take 50 mg by mouth once daily at bedtime Doxepin Active 50 MG PO Daily at bedtime April 13, 2022 11:00pm Start: 01-12-2022 take 3-4 capsules by mouth at bedtime doxepin 50 mg capsule 01/12/2022 TAKE 3 TO 4 CAPSULES BY MOUTH AT BEDTIME Start: 07-13-2021 End: 10-15-2021 take 3-4 capsules by mouth at bedtime Doxepin HCl 50 MG Oral Capsule 09/15/2021 10/15/2021 TAKE 3 TO 4 CAPSULES BY MOUTH AT BEDTIME Start: 03-11-2021 take 3-4 capsules by mouth at bedtime doxepin 50 mg oral capsule 03/11/2021 TAKE 3 TO 4 CAPSULES BY MOUTH AT BEDTIME Start: 08-05-2020 take 3-4 capsules by mouth at bedtime doxepin 50 mg oral capsule 08/05/2020 TAKE 3 TO 4 CAPSULES BY MOUTH AT BEDTIME Start: 02-20-2020 End: 06-07-2020 take 3-4 capsules by mouth at bedtime Doxepin HCl 50 MG Oral Capsule 05/15/2020 06/07/2020 TAKE 3 TO 4 CAPSULES BY MOUTH AT BEDTIME Start: 10-22-2019 take 3-4 capsules by mouth at bedtime doxepin 50 mg oral capsule 12/27/2019 TAKE 3 TO 4 CAPSULES BY MOUTH AT BEDTIME Start: 08-30-2018 take 3-4 capsules by mouth once daily at bedtime doxepin 50 mg oral capsule 08/30/2018 take 3-4 capsules (50-100 mg) by oral route once daily at bedtime DULoxetine 60 mg delayed release oral capsule (20 sources) Serotonin and Norepinephrine Reuptake Inhibitor End: 04-17-2019 take 1 capsule by mouth once daily duloxetine 60 mg oral capsule,delayed release(DR/EC) 04/17/2019 take 1 capsule (60 mg) by oral route once daily empagliflozin 25 mg oral tablet (20 sources) Sodium-Glucose Cotransporter 2 Inhibitor Start: 12-23-2020 take 1 tablet by mouth once daily in the morning Jardiance 25 mg oral tablet 09/03/2021 take 1 tablet (25 mg) by oral route once daily in the morning Start: 07-21-2020 take 1 tablet by jina th once daily in the morning Jardiance 25 mg oral tablet 07/21/2020 take 1 tablet (25 mg) by oral route once daily in the morning Start: 08-28-2019 take 1 tablet by jina th once daily in the morning Jardiance 25 mg oral tablet 08/28/2019 take 1 tablet (25 mg) by oral route once daily in the morning Start: 2015 End: 11-12-2015 take 1 tablet by mouth once daily in the morning Jardiance 25 mg oral tablet 2015 11/12/2015 take 1 tablet (25 mg) by oral route once daily in the morning empagliflozin 25 mg / linagliptin 5 mg oral tablet (20 sources) Dipeptidyl Peptidase 4 Inhibitor, Sodium-Glucose Cotransporter 2 Inhibitor Start: 11-05-2015 End: 2015 take 1 tablet by mouth once daily in the morning Glyxambi 25-5 mg oral tablet 11/05/2015 2015 take 1 tablet by oral route once daily in the morning per LLS changed to Jardiance Fish Oil Extra Strength 435-880 mg oral capsule (20 sources) take 2 capsules by mouth once daily Fish Oil Extra Strength 435-880 mg oral capsule take 2 capsules by oral route daily fluticasone furoate 0.0275 mg/actuat metered dose nasal spray (20 sources) Corticosteroid Start: 08-05-2020 End: 09-03-2021 take 2 puff(s) by inhalation twice daily Flonase Sensimist 27.5 mcg/actuation nasal spray,suspensio n 08/05/2020 09/03/2021 inhale 2 puffs by nasal route 2 times a day furosemide 20 mg oral tablet (20 sources) Loop Diuretic Start: 07-27-2022 take 1 tablet by mouth once daily furosemide 20 mg oral tablet 07/27/2022 TAKE 1 TABLET BY MOUTH ONCE DAILY Start: 04-14-2022 take 20 mg by mouth once daily Furosemide Active 20 MG PO Daily April 13, 2022 11:00pm Start: 12-23-2020 take 1 tablet by jina th once daily furosemide 20 mg oral tablet 09/03/2021 TAKE 1 TABLET BY MOUTH ONCE DAILY Start: 10-09-2019 take 1 tablet by jina th once daily furosemide 20 mg oral tablet 10/09/2019 TAKE 1 TABLET BY MOUTH ONCE DAILY Start: 08-30-2018 take 1 tablet by jina th once daily furosemide 20 mg oral tablet 08/30/2018 TAKE ONE TABLET BY MOUTH ONCE DAILY Start: 08-04-2015 End: 10-03-2015 take 1 tablet by mouth once daily Lasix 20 mg oral tablet 08/04/2015 10/03/2015 take 1 tablet by oral route daily for 30 days duplicate Start: 06-03-2015 End: 07-24-2015 take 1 tablet by mouth once daily Lasix 20 mg oral tablet 06/03/2015 07/24/2015 take 1 tablet by oral route daily for 30 days Hair,Skin and Nails oral tablet (20 sources) Start: 02-21-2020 take 1 tablet by mouth once daily Hair,Skin and Nails oral tablet 02/21/2020 take 1 tablet by oral route daily take 2 tablets by mouth once vale ly Hair,Skin and Nails oral tablet take 2 tablets by oral route daily ibuprofen 800 mg oral tablet (5 sources) Nonsteroidal Anti-inflammatory Drug End: 12-28-2019 take 1 tablet by mouth every six hours as needed for pain ibuprofen (ADVIL;MOTRIN) 800 MG tablet Take 800 mg by mouth every 6 hours as needed for Pain 0 12/28/2019 Discontinued (Stop Taking at Discharge) 3 ml insulin detemir 100 unt/ml pen injector (20 sources) Insulin Analog Start: 10-03-2015 End: 10-03-2015 Levemir FlexTouch 100 unit/mL (3 mL) subcutaneous insulin pen 10/03/2015 10/03/2015 inject 25 units at breakfast and at bedtime changed to lantus solostar 3 ml insulin glargine 100 unt/ml pen injector (20 sources) Insulin Analog Start: 07-27-2022 inject 2 [IU] by subcutaneous injection once daily Lantus Solostar U-100 Insulin 100 unit/mL (3 mL) subcutaneous insulin pen 07/27/2022 inject 25 units by subcutaneous route every AM, prime pen with 2 units before each use Start: 04-14-2022 Insulin Glargi ne (Lantus Solostar U-100 Insulin) 100 unit/mL (3 mL) Insulin Pen Active 25 UNIT SUBCUT Every morning April 13, 2022 11:00pm Start: 10-26-2021 inject 2 [IU] by sub cutaneous injection once daily Lantus Solostar U-100 Insulin 100 unit/mL (3 mL) subcutaneous insulin pen 10/26/2021 inject 25 units by subcutaneous route every AM, prime pen with 2 units before each use Start: 09-03-2021 inject 2 [IU] by sub cutaneous injection once daily Lantus Solostar U-100 Insulin 100 unit/mL (3 mL) subcutaneous insulin pen 09/03/2021 inject 25 units by subcutaneous route every AM, prime pen with 2 units before each use Start: 02-15-2019 End: 08-28-2019 inject 2 [IU] by subcutaneous injection once daily in the morning Basaglar KwikPen U-100 Insulin 100 unit/mL (3 mL) subcutaneous insulin pen 02/15/2019 08/28/2019 inject 25 units every morning, prime pen with 2 units each use Start: 12-12-2018 inject 2 [IU] by sub cutaneous injection once daily in the morning Basaglar KwikPen U-100 Insulin 100 unit/mL (3 mL) subcutaneous insulin pen 12/12/2018 inject 25 units every morning, prime pen with 2 units each use Start: 11-30-2016 End: 12-13-2017 inject 20 [IU] by subcutaneous injection at breakfast Basaglar KwikPen 100 unit/mL (3 mL) subcutaneous insulin pen 11/30/2016 12/13/2017 inject 20 units at breakfast and 20 units at bedtime Start: 03-10-2016 End: 07-15-2016 Lantus Solostar 100 unit/mL (3 mL) subcutaneous insulin pen 03/10/2016 07/15/2016 INJECT 25 UNITS SUBCUTANEOUSLY AT BREAKFAST AND BEDTIME Per LLS ok to change to Basaglar insulin glargine (LANTUS;BASAGLAR) 100 UNIT/ML injection pen Inject 25 Units into the skin daily 0 Active ketorolac tromethamine 10 mg oral tablet (20 sources) Nonsteroidal Anti-inflammatory Drug, Cyclooxygenase Inhibitor Start: 02-21-2020 End: 04-08-2020 take 1 tablet by mouth every six hours as needed ketorolac 10 mg oral tablet 02/21/2020 04/08/2020 take 1 tablet (10 mg) by oral route every 6 hours as needed not to exceed 40 mg in 24hrs Start: 12-28-2019 End: 01-02-2020 take 1 tablet by mouth three times daily, then take 1 tablet by mouth three times daily ketorolac (TORADOL) 10 MG tablet Take 1 tablet by mouth 3 times daily for 5 days 1 tab by mouth 3 times daily 15 tablet 0 12/28/2019 01/02/2020 Active Start: 12-28-2019 ketorolac (TOR ADOL) injection 30 mg Start: 05-29-2019 take 1 tablet by jina th every six hours as needed ketorolac 10 mg oral tablet 05/29/2019 take 1 tablet (10 mg) by oral route every 6 hours as needed not to exceed 40 mg in 24hrs per task Lantus SoloStar 100 UNIT/ML Subcutaneous Solution Pen-injector (20 sources) Start: 10-14-2020 End: 12-23-2020 inject 2 [IU] by subcutaneous injection once daily Lantus SoloStar 100 UNIT/ML Subcutaneous Solution Pen-injector 10/14/2020 12/23/2020 INJECT 25 UNITS SUBCUTANEOUSLY ONCE DAILY IN THE MORNING PRIME PEN WITH 2 UNITS BEFORE EACH USE. 24 hr levomilnacipran 40 mg extended release oral capsule (20 sources) Serotonin and Norepinephrine Reuptake Inhibitor Start: 02-23-2016 End: 04-17-2019 take 1 capsule by mouth three times daily Fetzima 40 mg oral capsule,extended release 24 hr 02/23/2016 04/17/2019 take 1 capsule (40 mg) by oral route three times a day lidocaine hydrochloride 40 mg/ml topical cream (18 sources) Antiarrhythmic, Amide Local Anesthetic Start: 09-17-2021 End: 12-16-2021 lidocaine HCl 4 % topical cream 09/17/2021 12/16/2021 apply once daily, to top of both feet (midfoot) with occlusive bandage. Discontinue if rash occurs. meloxicam 15 mg oral tablet (20 sources) Nonsteroidal Anti-inflammatory Drug Start: 06-07-2022 take 1 tablet by mouth once daily meloxicam 15 mg tablet 06/07/2022 take 1 tablet (15 mg) by oral route once daily Start: 04-14-2022 take 15 mg by mouth once daily Meloxicam Active 15 MG PO Daily April 13, 2022 11:00pm Start: 05-29-2021 take 1 tablet by jina th once daily meloxicam 15 mg oral tablet 09/03/2021 take 1 tablet (15 mg) by oral route once daily Start: 12-23-2020 take 1 tablet by jina th once daily meloxicam 15 mg oral tablet 12/23/2020 take 1 tablet (15 mg) by oral route once daily Start: 04-23-2020 take 1 tablet by jina th once daily meloxicam 15 mg oral tablet 04/23/2020 take 1 tablet (15 mg) by oral route once daily Start: 11-26-2019 take 1 tablet by jina th once daily meloxicam 15 mg oral tablet 11/26/2019 take 1 tablet (15 mg) by oral route once daily methylPREDNISolone 4 mg oral tablet (20 sources) Corticosteroid Start: 03-16-2022 End: 03-22-2022 Medrol (Jorge) oral tablets,dose pack 4 mg 03/16/2022 03/22/2022 take by oral route as directed per package instructions for 6 days Start: 06-04-2020 End: 08-05-2020 Medrol (Jorge) 4 mg oral table ts,dose pack 06/04/2020 08/05/2020 take as directed mupirocin 0.02 mg/mg topical ointment (18 sources) RNA Synthetase Inhibitor Antibacterial Start: 01-18-2022 End: 02-01-2022 mupirocin 2 % topical ointment 01/18/2022 02/01/2022 apply a small amount to the 4th by topical route 2 times per day for 14 days, cover with bandage Start: 09-17-2021 End: 10-01-2021 mupirocin 2 % topical ointme nt 09/17/2021 10/01/2021 apply a small amount to the 4th by topical route 2 times per day for 14 days, cover with bandage parking placard 1 (20 sources) Start: 08-30-2018 parking placar d 1 08/30/2018 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 good for 5 yrs until 08/30/23 potassium chloride 10 meq oral capsule (20 sources) Start: 09-09-2021 End: 10-09-2021 take 1 capsule by mouth once daily Potassium Chloride ER 10 MEQ Oral Capsule Extended Release 09/09/2021 10/09/2021 Take 1 capsule by mouth once daily for 30 days Start: 08-05-2021 End: 09-04-2021 take 1 capsule by mouth once daily Potassium Chloride ER 10 MEQ Oral Capsule Extended Release 08/05/2021 09/04/2021 Take 1 capsule by mouth once daily for 30 days Start: 08-30-2018 End: 09-03-2021 take 1 capsule by mouth once daily potassium chloride ER 10 mEq capsule,extended release 06/11/2021 09/03/2021 take 1 capsule by oral route daily Start: 06-03-2015 End: 07-24-2015 take 1 capsule by mouth once daily potassium chloride 10 mEq oral capsule, extended release 06/03/2015 07/24/2015 take 1 capsule (10 meq) by oral route once daily for 30 days sertraline 50 mg oral tablet (20 sources) Serotonin Reuptake Inhibitor Start: 11-26-2019 End: 01-25-2020 take 1 tablet by mouth once daily Zoloft 50 mg oral tablet 11/26/2019 01/10/2020 take 1 tablet (50 mg) by oral route once daily for 30 days Ventolin HFA 108 (90 Base) MCG/ACT Inhalation Aerosol Solution (20 sources) Start: 02-10-2021 End: 03-19-2021 take 1 puff(s) by mouth every six hours as needed Ventolin HFA 108 (90 Base) MCG/ACT Inhalation Aerosol Solution 02/10/2021 03/19/2021 INHALE 1 PUFF BY MOUTH EVERY 6 HOURS NEEDED vitamin b12 0.5 mg oral tablet (20 sources) Vitamin B12 Start: 04-17-2019 End: 07-27-2022 take 1 tablet by mouth once daily Vitamin B-12 500 mcg oral tablet 04/17/2019 07/27/2022 take 1 tablet by oral route daily Start: 03-01-2017 take 2 tablets by [facility] once daily Vitamin B-12 1,000 mcg oral tablet extended release 03/01/2017 take 2 tablets by oral route daily Cyanocobalamin ( VITAMIN B-12) 5000 MCG TBDP Take by mouth daily 0 Active Problems Active Problems Problem Classification Problem Date Documented Date Episodic/Chronic Alcohol-related disorders (20 sources) Alcohol abuse, unspecified; Translations: [Other and unspecified alcohol dependence, unspecified] Onset: 8 Chronic Anxiety disorders (20 sources) Anxiety state, unspecified; Translations: [Mixed anxiety and depressive disorder] Onset: 6 Chronic Adame (10 sources) Partial thickness burn of toe; Translations: [Burn of second degree of unspecified toe(s) (nail), initial encounter] 04-01-2022 Episodic Chronic kidney disease (20 sources) Chronic kidney disease, unspecified; Translations: [Chronic kidney disease, unspecified] Onset: 0 Chronic Chronic obstructive pulmonary disease and bronchiectasis (20 sources) Other emphysema; Translations: [Pulmonary emphysema] Onset: 6 Chronic Chronic ulcer of skin (20 sources) Non-pressure chronic ulcer of other part of right foot with unspecified severity; Translations: [Non-pressure chronic ulcer of other part of right foot with fat layer exposed] Onset: 2 Chronic Diabetes mellitus with complications (20 sources) Diabetes with neurological manifestations, type II or unspecified type, uncontrolled; Translations: [Diabetes with peripheral circulatory disorders, type II or unspecified type, uncontrolled] Onset: 5 04-14-2022 Chronic Diabetes mellitus without complication (20 sources) Diabetes mellitus without mention of complication, type II or unspecified type, not stated as uncontrolled; Translations: [Type 2 diabetes mellitus] Onset: 6 04-14-2022 Chronic Disorders of lipid metabolism (20 sources) Pure hyperglyceridemia; Translations: [Anu type IV hyperlipoproteinemia ] Onset: 6 04-14-2022 Chronic Esophageal disorders (12 sources) Gastro-esophageal reflux disease without esophagitis Onset: 2 Chronic Essential hypertension (20 sources) Benign essential hypertension; Translations: [Malignant essential hypertension] Onset: 5 Chronic External cause codes: Fall (20 sources) Unspecified fall; Translations: [Fall] Onset: 6 Hypertension with complications and secondary hypertension (20 sources) Other unspecified secondary hypertension; Translations: [Hypertension secondary to endocrine disorders] Onset: 7 Chronic Mood disorders (20 sources) Depressive disorder, not elsewhere classified; Translations: [Depressive disorder] Onset: 6 Chronic Other circulatory disease (18 sources) Peripheral vascular disease; Translations: [Other specified peripheral vascular diseases] Onset: 2 Chronic Other circulatory disease (20 sources) Other specified peripheral vascular diseases Onset: 2 Chronic Other liver diseases (19 sources) Fatty (change of) liver, not elsewhere classified Onset: 2 Chronic Other liver diseases (3 sources) Steatosis of liver; Translations: [Other chronic nonalcoholic liver disease] Onset: 3 Chronic Other male genital disorders (1 source) Impotence of organic origin Onset: 0 Chronic Other male genital disorders (20 sources) Erectile dysfunction due to diseases classified elsewhere Onset: 0 Chronic Other nervous system disorders (20 sources) Disorder of the peripheral nervous system; Translations: [Unspecified hereditary and idiopathic peripheral neuropathy] Onset: 7 Chronic Other nervous system disorders (20 sources) Unspecified hereditary and idiopathic peripheral neuropathy Onset: 7 Chronic Other nervous system disorders (20 sources) Mononeuritis of unspecified site Onset: 6 Chronic Other nervous system disorders (20 sources) Polyneuropathy in diseases classified elsewhere Onset: 6 Chronic Other nervous system disorders (20 sources) Polyneuropathy, unspecified; Translations: [Mononeuritis of unspecified site] Onset: 6 04-14-2022 Chronic Other nervous system disorders (4 sources) Neuropathy; Translations: [Polyneuropathy, unspecified] 04-14-2022 Chronic Other non-traumatic joint disorders (1 source) Shoulder pain; Translations: [Acute pain of right shoulder] Episodic Other non-traumatic joint disorders (1 source) Pain in right knee; Translations: [Right knee pain, unspecified chronicity] Other nutritional; endocrine; and metabolic disorders (20 sources) Obesity, unspecified Onset: 7 Chronic Other nutritional; endocrine; and metabolic disorders (20 sources) Morbid obesity Onset: 5 Chronic Other nutritional; endocrine; and metabolic disorders (20 sources) Obesity, unspecified Onset: 7 Chronic Other nutritional; endocrine; and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 fraction] 6.50 % Invalid Interpretation Code 4.3-6.3 [facility] No Panel Informationon 02-17 140.0 mg/dL Invalid Interpretation Code [facility] Laboratory - Chemistry and C hemistry - challengeon 01-15-2022 Albumin (U) [Mass/Vol] < 12.0 Invalid Interpretation Code < 17.0 ug/mL [facility] Albumin [Mass/Vol] 4.70 g/dL Invalid Interpretation Code 3.7-5.0 [facility] Albumin/Globulin [Mass ratio] 1.6 {ratio} Invalid Interpretation Code 1.0-2.4 [facility] ALP [Catalytic activity/Vol] 66.0 U/L Invalid Interpretation Code 31-155 [facility] ALT [Catalytic activity/Vol] 38.0 U/L Invalid Interpretation Code 0-50 [facility] Anion gap [Moles/Vol] 15 mmol/L Invalid Interpretation Code 10-20 [facility] AST [Catalytic activity/Vol] 23.0 U/L Invalid Interpretation Code 0-40 [facility] Bilirubin [Mass/Vol] 0.40 mg/dL Invalid Interpretation Code 0.0-1.0 [facility] Bilirubin Ql (U) Negative Invalid Interpretation Code Negative [facility] Calcium [Mass/Vol] 10.40 mg/dL Invalid Interpretation Code 8.5-10.8 [facility] Chloride [Moles/Vol] 101.0 mmol/L Invalid Interpretation Code 100-112 [facility] CO2 [Moles/Vol] 28.0 mmol/L Invalid Interpretation Code 23-30 [facility] Creatinine (U) [Mass/Vol] 60.60 mg/dL Invalid Interpretation Code Not Estab. mg/dL [facility] Creatinine [Mass/Vol] 1.10 mg/dL Invalid Interpretation Code 0.5-1.5 [facility] Gamma glutamyl transferase [Catalytic activity/Vol] 62 U/L Invalid Interpretation Code 7-51 [facility] GFR/1.73 sq M.predicted among non-blacks MDRD (S/P/Bld) [Vol rate/Area] 69 mL/min/{1.73_m 2} Invalid Interpretation Code [facility] Glucose [Mass/Vol] 116.0 mg/dL Invalid Interpretation Code 80-117 [facility] Ketones Ql (U) 1+ Invalid Interpretation Code Negative [facility] pH (U) 6 [pH] Invalid Interpretation Code 5.0-9.0 [facility] Potassium [Moles/Vol] 4.80 mmol/L Invalid Interpretation Code 3.5-5.3 [facility] Protein [Mass/Vol] 7.70 g/dL Invalid Interpretation Code 6.3-7.9 [facility] Sodium [Moles/Vol] 139.0 mmol/L Invalid Interpretation Code 135-148 [facility] Specific gravity (U) [Rel density] 1.010 Invalid Interpretation Code 1.003-1.030 [facility] Urea nitrogen [Mass/Vol] 17.0 mg/dL Invalid Interpretation Code 7-25 [facility] Urea nitrogen/Creatinin e [Mass ratio] 15 mg/mg Invalid Interpretation Code 6-20 [facility] Urobilinogen (U) [Mass/Vol] normal Invalid Interpretation Code normal [facility] Laboratory - Hematology and Cell countson 01-15-2022 Erythrocyte distribution width (RBC) [Ratio] 12.50 % Invalid Interpretation Code 11.5-15.5 [facility] HbA1c (Bld) [Mass fraction] 6.60 % Invalid Interpretation Code 4.3-6.3 [facility] Hematocrit (Bld) [Volume fraction] 49.80 % Invalid Interpretation Code 37.8-51.0 [facility] Hemoglobin (Bld) [Mass/Vol] 16.40 g/dL Invalid Interpretation Code 12.6-17.0 [facility] Hemoglobin Ql (U) Negative Invalid Interpretation Code Negative [facility] MCH (RBC) [Entitic mass] 31.90 pg Invalid Interpretation Code 25.7-33.8 [facility] MCHC (RBC) [Mass/Vol] 32.90 g/dL Invalid Interpretation Code 32.0-36.0 [facility] MCV (RBC) [Entitic vol] 96.90 fL Invalid Interpretation Code 81.0-100.2 [facility] Platelet mean volume (Bld) [Entitic vol] 9.30 fL Invalid Interpretation Code 8.3-11.5 [facility] Platelets (Bld) [#/Vol] 216.0 10*3/uL Invalid Interpretation Code 150-400 [facility] RBC (Bld) [#/Vol] 5.140 10*6/uL Invalid Interpretation Code 4.34-5.61 [facility] WBC (Bld) [#/Vol] 7.30 10*3/uL Invalid Interpretation Code 3.9-10.3 [facility] Laboratory - Specimen inform ationon 01-15-2022 Clarity (U) clear Invalid Interpretation Code Clear [facility] Color (U) yellow Invalid Interpretation Code yellow [facility] Laboratory - Urinalysison Glucose Test strip (U) [Mass/Vol] 4+ Invalid Interpretation Code Negative [facility] Leukocyte esterase Test strip Ql (U) Negative Invalid Interpretation Code Negative [facility] Nitrite Ql (U) Negative Invalid Interpre tation Code Negative [facility] Protein Ql (U) Negative Invalid Interpre tation Code Negative [facility] No Panel Informationon 01-15 143.0 mg/dL Invalid Interpretation Code [facility] Glucose Meter Check NOT Performed Invalid Interpretation Code 70-117 [facility] [employer] [facility] [place] 09-19-2021 C Wound Final Moderate Growth of Staphylococcus aureus isolated and . Scant Growth of Normal skin baldemar isolated ORGANISM SA SUSCEPTIBILITY ORGANISM ID: 1 ANTIBIOTIC INTERPRETATION BILL STATUS POS Staphylococcus aureus Ciprofloxacin S <=0.5 V Erythromycin R >=8 V Gentamicin S <=0.5 V Levofloxacin S 0.25 V Moxifloxacin S <=0.25 V Penicillin S 0.06 V Oxacillin S <=0.25 V Quinapristin/Dalfopristin S <=0.25 V Rifampin S <=0.5 V Trimethoprim/Sulfa S <=10 V Tetracycline S <=1 V Vancomycin S 1 V Normal [facility] Comment on above: Performed By: #### W DC #### [facility] (DEFAULT) [address] [place] [address] [address] Laboratory - Chemistry and C hemistry - challengeon 08-18-2021 Albumin [Mass/Vol] 4.70 g/dL Invalid Inter pretation Code 3.7-5.0 [facility] Albumin/Globulin [Mass ratio] 1.7 {ratio} Invalid Interpretation Code 1.0-2.4 [facility] ALP [Catalytic activity/Vol] 62.0 U/L Invalid Interpretation Code 31-155 [facility] ALT [Catalytic activity/Vol] 57.0 U/L Invalid Interpretation Code 0-50 [facility] Anion gap [Moles/Vol] 16 mmol/L Invalid In terpretation Code 10-20 [facility] AST [Catalytic activity/Vol] 33.0 U/L Invalid Interpretation Code 0-40 [facility] Bilirubin [Mass/Vol] 0.40 mg/dL Invalid Int erpretation Code 0.0-1.0 [facility] Calcium [Mass/Vol] 10.20 mg/dL Invalid Inter pretation Code 8.5-10.8 [facility] Chloride [Moles/Vol] 99.0 mmol/L Invalid Int erpretation Code 100-112 [facility] Cholesterol [Mass/Vol] 217.0 mg/dL Invalid Interpretation Code 0-200 [facility] Cholesterol in HDL [Mass/Vol] 49.0 mg/dL Invalid Interpretation Code 36-100 [facility] Cholesterol in LDL [Mass/Vol] 131.0 mg/dL Invalid Interpretation Code 0-130 [facility] Cholesterol in VLDL [Mass/Vol] 37.0 mg/dL Invalid Interpretation Code 0-39 [facility] Cholesterol.total/Cho lesterol in HDL [Mass ratio] 4 {ratio} Invalid Interpretation Code [facility] CO2 [Moles/Vol] 28.0 mmol/L Invalid Interpre tation Code 23-30 [facility] Creatinine [Mass/Vol] 1.10 mg/dL Invalid In terpretation Code 0.5-1.5 [facility] Gamma glutamyl transferase [Catalytic activity/Vol] 98 U/L Invalid Interpretation Code 7-51 [facility] GFR/1.73 sq M.predicted among non-blacks MDRD (S/P/Bld) [Vol rate/Area] 69 mL/min/{1.73 _m2} Invalid Interpretation Code [facility] Glucose [Mass/Vol] 127.0 mg/dL Invalid Inter pretation Code 80-117 [facility] Potassium [Moles/Vol] 4.40 mmol/L Invalid In terpretation Code 3.5-5.3 [facility] Protein [Mass/Vol] 7.50 g/dL Invalid Inter pretation Code 6.3-7.9 [facility] Sodium [Moles/Vol] 139.0 mmol/L Invalid Inter pretation Code 135-148 [facility] Triglyceride [Mass/Vol] 186.0 mg/dL Invalid Interpretation Code 30-150 [facility] Urea nitrogen [Mass/Vol] 19.0 mg/dL Invalid Interpretation Code 7-25 [facility] Urea nitrogen/Creatinine [Mass ratio] 17 mg/mg Invalid Interpretation Code 6-20 [facility] Laboratory - Hematology and Cell countson 08-18-2021 Erythrocyte distribution width (RBC) [Ratio] 12.60 % Invalid Interpretation Code 11.5-15.5 [facility] HbA1c (Bld) [Mass fraction] 6.20 % Invalid Interpretation Code 4.3-6.3 [facility] Hematocrit (Bld) [Volume fraction] 48.40 % Invalid Interpretation Code 37.8-51.0 [facility] Hemoglobin (Bld) [Mass/Vol] 16.10 g/dL Invalid Interpretation Code 12.6-17.0 [facility] MCH (RBC) [Entitic mass] 32.40 pg Invalid Interpretation Code 25.7-33.8 [facility] MCHC (RBC) [Mass/Vol] 33.30 g/dL Invalid Interpretation Code 32.0-36.0 [facility] MCV (RBC) [Entitic vol] 97.40 fL Invalid Interpretation Code 81.0-100.2 [facility] Platelet mean volume (Bld) [Entitic vol] 10.10 fL Invalid Interpretation Code 8.3-11.5 [facility] Platelets (Bld) [#/Vol] 214.0 10*3/uL Invalid Interpretation Code 150-400 [facility] RBC (Bld) [#/Vol] 4.970 10*6/uL Invalid Interpretation Code 4.34-5.61 [facility] WBC (Bld) [#/Vol] 5.90 10*3/uL Invalid Interpretation Code 3.9-10.3 [facility] No Panel Informationon 08-18 131.0 mg/dL Invalid Interpretation Code [facility] No Specimen, Unable to Void Invalid Interpretation Code [facility] Laboratory - Chemistry and C hemistry - challengeon 03-19-2021 Albumin [Mass/Vol] 4.60 g/dL Invalid Interpretation Code 3.7-4.5 [facility] Albumin/Globulin [Mass ratio] 1.4 {ratio} Invalid Interpretation Code 1.0-2.4 [facility] ALP [Catalytic activity/Vol] 75.0 U/L Invalid Interpretation Code 31-155 [facility] ALT [Catalytic activity/Vol] 41.0 U/L Invalid Interpretation Code 0-50 [facility] Anion gap [Moles/Vol] 14 mmol/L Invalid Interpretation Code 10-20 [facility] AST [Catalytic activity/Vol] 26.0 U/L Invalid Interpretation Code 0-40 [facility] Bilirubin [Mass/Vol] 0.40 mg/dL Invalid Interpretation Code 0.0-1.0 [facility] Bilirubin Ql (U) Negative Invalid Interpretation Code Negative [facility] Calcium [Mass/Vol] 10.10 mg/dL Invalid Interpretation Code 8.5-10.8 [facility] Chloride [Moles/Vol] 99.0 mmol/L Invalid Interpretation Code 100-112 [facility] CO2 [Moles/Vol] 28.0 mmol/L Invalid Interpretation Code 23-30 [facility] Creatinine [Mass/Vol] 0.90 mg/dL Invalid Interpretation Code 0.5-1.5 [facility] GFR/1.73 sq M.predicted among non-blacks MDRD (S/P/Bld) [Vol rate/Area] 87 mL/min/{1.73_m2 } Invalid Interpretation Code [facility] Glucose [Mass/Vol] 135.0 mg/dL Invalid Interpretation Code 80-117 [facility] Ketones Ql (U) Negative Invalid Interpretation Code Negative [facility] Parathyrin.intact [Mass/Vol] 22 pg/mL Invalid Interpretation Code 12-65 [facility] pH (U) 6 [pH] Invalid Interpretation Code 5.0-9.0 [facility] Phosphate [Mass/Vol] 3.50 mg/dL Invalid Interpretation Code 2.5-4.5 [facility] Potassium [Moles/Vol] 4.50 mmol/L Invalid Interpretation Code 3.5-5.3 [facility] Protein [Mass/Vol] 7.80 g/dL Invalid Interpretation Code 6.3-7.9 [facility] Sodium [Moles/Vol] 136.0 mmol/L Invalid Interpretation Code 135-148 [facility] Specific gravity (U) [Rel density] 1.015 Invalid Interpretation Code 1.003-1.030 [facility] Urea nitrogen [Mass/Vol] 15.0 mg/dL Invalid Interpretation Code 7-25 [facility] Urea nitrogen/Creatinine [Mass ratio] 17 mg/mg Invalid Interpretation Code 6-20 [facility] Urobilinogen (U) [Mass/Vol] normal Invalid Interpretation Code normal [facility] Laboratory - Hematology and Cell countson 03-19-2021 Erythrocyte distribution width (RBC) [Ratio] 12.80 % Invalid Interpretation Code 11.5-15.5 [facility] HbA1c (Bld) [Mass fraction] 6.40 % Invalid Interpretation Code 4.3-6.3 [facility] Hematocrit (Bld) [Volume fraction] 49.0 % Invalid Interpretation Code 37.8-51.0 [facility] Hemoglobin (Bld) [Mass/Vol] 16.60 g/dL Invalid Interpretation Code 12.6-17.0 [facility] Hemoglobin Ql (U) Negative Invalid Interpretation Code Negative [facility] MCH (RBC) [Entitic mass] 32.10 pg Invalid Interpretation Code 25.7-33.8 [facility] MCHC (RBC) [Mass/Vol] 33.90 g/dL Invalid Interpretation Code 32.0-36.0 [facility] MCV (RBC) [Entitic vol] 94.80 fL Invalid Interpretation Code 81.0-100.2 [facility] Platelet mean volume (Bld) [Entitic vol] 9.60 fL Invalid Interpretation Code 8.3-11.5 [facility] Platelets (Bld) [#/Vol] 257.0 10*3/uL Invalid Interpretation Code 150-400 [facility] RBC (Bld) [#/Vol] 5.170 10*6/uL Invalid Interpretation Code 4.34-5.61 [facility] WBC (Bld) [#/Vol] 6.90 10*3/uL Invalid Interpretation Code 3.9-10.3 [facility] Laboratory - Specimen inform ationon 03-19-2021 Clarity (U) clear Invalid Interpretation Code Clear [facility] Color (U) yellow Invalid Interpretation Code yellow [facility] Laboratory - Urinalysison Glucose Test strip (U) [Mass/Vol] 4+ Invalid Interpretation Code Negative [facility] Leukocyte esterase Test strip Ql (U) Negative Invalid Interpretation Code Negative [facility] Nitrite Ql (U) Negative Invalid Interpre tation Code Negative [facility] Protein Ql (U) Negative Invalid Interpre tation Code Negative [facility] No Panel Informationon 03-19 137.0 mg/dL Invalid Interpretation Code [facility] patient's meter broke and doesn't have new one yet Invalid Interpretation Code 70-117 [facility] Laboratory - Chemistry and C hemistry - challengeon 12-23-2020 Albumin (U) [Mass/Vol] < 12.0 Invalid Interpretation Code < 17.0 ug/mL [facility] Albumin [Mass/Vol] 4.40 g/dL Invalid Interpretation Code 3.7-4.5 [facility] Albumin/Globulin [Mass ratio] 1.5 {ratio} Invalid Interpretation Code 1.0-2.4 [facility] ALP [Catalytic activity/Vol] 69.0 U/L Invalid Interpretation Code 31-155 [facility] ALT [Catalytic activity/Vol] 30.0 U/L Invalid Interpretation Code 0-50 [facility] Anion gap [Moles/Vol] 13 mmol/L Invalid Interpretation Code 10-20 [facility] AST [Catalytic activity/Vol] 20.0 U/L Invalid Interpretation Code 0-40 [facility] Bilirubin [Mass/Vol] 0.40 mg/dL Invalid Interpretation Code 0.0-1.0 [facility] Bilirubin Ql (U) Negative Invalid Interpretation Code Negative [facility] Calcium [Mass/Vol] 9.80 mg/dL Invalid Interpretation Code 8.5-10.8 [facility] Chloride [Moles/Vol] 98.0 mmol/L Invalid Interpretation Code 100-112 [facility] Cholesterol [Mass/Vol] 207.0 mg/dL Invalid Interpretation Code 0-200 [facility] Cholesterol in HDL [Mass/Vol] 40.0 mg/dL Invalid Interpretation Code 36-100 [facility] Cholesterol in LDL [Mass/Vol] 100.0 mg/dL Invalid Interpretation Code 0-130 [facility] Cholesterol in VLDL [Mass/Vol] 67.0 mg/dL Invalid Interpretation Code 0-39 [facility] Cholesterol.total/ Cholesterol in HDL [Mass ratio] 5 {ratio} Invalid Interpretation Code [facility] CO2 [Moles/Vol] 29.0 mmol/L Invalid Interpretation Code 23-30 [facility] Creatinine (U) [Mass/Vol] 31.90 mg/dL Invalid Interpretation Code Not Estab. mg/dL [facility] Creatinine [Mass/Vol] 1.0 mg/dL Invalid Interpretation Code 0.5-1.5 [facility] GFR/1.73 sq M.predicted among non-blacks MDRD (S/P/Bld) [Vol rate/Area] 77 mL/min/{1.73_m 2} Invalid Interpretation Code [facility] Glucose [Mass/Vol] 113.0 mg/dL Invalid Interpretation Code 80-117 [facility] Ketones Ql (U) Negative Invalid Interpretation Code Negative [facility] pH (U) 6 [pH] Invalid Interpretation Code 5.0-9.0 [facility] Potassium [Moles/Vol] 4.40 mmol/L Invalid Interpretation Code 3.5-5.3 [facility] Prostate specific Ag [Mass/Vol] 0.76 ng/mL Invalid Interpretation Code 0.00-4.00 [facility] Protein [Mass/Vol] 7.30 g/dL Invalid Interpretation Code 6.3-7.9 [facility] Sodium [Moles/Vol] 136.0 mmol/L Invalid Interpretation Code 135-148 [facility] Specific gravity (U) [Rel density] 1.005 Invalid Interpretation Code 1.003-1.030 [facility] Triglyceride [Mass/Vol] 334.0 mg/dL Invalid Interpretation Code 30-150 [facility] Urea nitrogen [Mass/Vol] 15.0 mg/dL Invalid Interpretation Code 7-25 [facility] Urea nitrogen/Creatinin e [Mass ratio] 15 mg/mg Invalid Interpretation Code 6-20 [facility] Urobilinogen (U) [Mass/Vol] normal Invalid Interpretation Code normal [facility] Laboratory - Hematology and Cell countson 12-23-2020 Erythrocyte distribution width (RBC) [Ratio] 12.90 % Invalid Interpretation Code 11.5-15.5 [facility] HbA1c (Bld) [Mass fraction] 6.30 % Invalid Interpretation Code 4.3-6.3 [facility] Hematocrit (Bld) [Volume fraction] 48.0 % Invalid Interpretation Code 37.8-51.0 [facility] Hemoglobin (Bld) [Mass/Vol] 16.40 g/dL Invalid Interpretation Code 12.6-17.0 [facility] Hemoglobin Ql (U) Negative Invalid Interpretation Code Negative [facility] MCH (RBC) [Entitic mass] 32.20 pg Invalid Interpretation Code 25.7-33.8 [facility] MCHC (RBC) [Mass/Vol] 34.20 g/dL Invalid Interpretation Code 32.0-36.0 [facility] MCV (RBC) [Entitic vol] 94.10 fL Invalid Interpretation Code 81.0-100.2 [facility] Platelet mean volume (Bld) [Entitic vol] 9.30 fL Invalid Interpretation Code 8.3-11.5 [facility] Platelets (Bld) [#/Vol] 265.0 10*3/uL Invalid Interpretation Code 150-400 [facility] RBC (Bld) [#/Vol] 5.10 10*6/uL Invalid Interpretation Code 4.34-5.61 [facility] WBC (Bld) [#/Vol] 7.30 10*3/uL Invalid Interpretation Code 3.9-10.3 [facility] Laboratory - Specimen inform ationon 12-23-2020 Clarity (U) clear Invalid Interpre tation Code Clear [facility] Collection time (Andrei) [Date/time] 10:56 am Invalid Interpretation Code [facility] Color (U) yellow Invalid Interpre tation Code yellow [facility] Laboratory - Urinalysison Glucose Test strip (U) [Mass/Vol] 4+ Invalid Interpretation Code Negative [facility] Leukocyte esterase Test strip Ql (U) Negative Invalid Interpretation Code Negative [facility] Nitrite Ql (U) Negative Invalid Interpre tation Code Negative [facility] Protein Ql (U) Negative Invalid Interpre tation Code Negative [facility] No Panel Informationon 12-23 134.0 mg/dL Invalid Interpretation Code [facility] Laboratory - Chemistry and C hemistry - challengeon 09-09-2020 Albumin/Globulin [Mass ratio] 1.2 {ratio} Invalid Interpretation Code 1.0-2.4 [facility] Bilirubin Ql (U) Negative Invalid Interpretation Code Negative [facility] Ketones Ql (U) Negative Invalid Interpretation Code Negative [facility] Urobilinogen (U) [Mass/Vol] normal Invalid Interpretation Code normal [facility] Laboratory - Urinalysison Leukocyte esterase Test strip Ql (U) Negative Invalid Interpretation Code Negative [facility] Nitrite Ql (U) Negative Invalid Interpre tation Code Negative [facility] Protein Ql (U) Negative Invalid Interpre tation Code Negative [facility] Metabolic Panelon 09-09-2020 Albumin [Mass/Vol] 4.40 g/dL Invalid Inter pretation Code 3.7-4.5 [facility] ALP [Catalytic activity/Vol] 81.0 U/L Invalid Interpretation Code 31-155 [facility] ALT [Catalytic activity/Vol] 57.0 U/L Invalid Interpretation Code 0-50 [facility] Anion gap [Moles/Vol] 13 mmol/L Invalid Interpretation Code 10-20 [facility] AST [Catalytic activity/Vol] 36.0 U/L Invalid Interpretation Code 0-40 [facility] Bilirubin [Mass/Vol] 0.60 mg/dL Invalid Interpretation Code 0.0-1.0 [facility] Calcium [Mass/Vol] 11.0 mg/dL Invalid Inter pretation Code 8.5-10.8 [facility] Chloride [Moles/Vol] 97.0 mmol/L Invalid Interpretation Code 100-112 [facility] CO2 [Moles/Vol] 27.0 mmol/L Invalid Interpre tation Code 23-30 [facility] Creatinine [Mass/Vol] 1.60 mg/dL Invalid Interpretation Code 0.5-1.5 [facility] GFR/1.73 sq M predicted among non-blacks MDRD (S/P/Bld) [Vol rate/Area] 45 mL/min/{1.73_m2 } Invalid Interpretation Code [facility] Glucose [Mass/Vol] 148.0 mg/dL Invalid Inter pretation Code 80-117 [facility] Glucose [Mass/Vol] Patient did not bring strips for meter 70-117 [facility] HbA1c (Bld) [Mass fraction] 6.90 % Invalid Interpretation Code 4.3-6.3 [facility] Potassium [Moles/Vol] 4.90 mmol/L Invalid Interpretation Code 3.5-5.3 [facility] Protein [Mass/Vol] 8.20 g/dL Invalid Inter pretation Code 6.3-7.9 [facility] Sodium [Moles/Vol] 132.0 mmol/L Invalid Inter pretation Code 135-148 [facility] Urea nitrogen [Mass/Vol] 23.0 mg/dL Invalid Interpretation Code 7-25 [facility] Urea nitrogen/Creatinin e [Mass ratio] 14 mg/mg Invalid Interpretation Code 6-20 [facility] No Panel Informationon 09-09 Patient did not brin g strips for meter Invalid Interpretation Code 70-117 [facility] Albumin/Globulin [Mass ratio] 1.2 (calc) 1.0-2.4 [facility] Bilirubin Ql (U) Negative Negative [facility] [place] [facility] Glucose Test strip (U) [Mass/Vol] 4+ Invalid Interpretation Code Negative [facility] Hemoglobin Ql (U) Trace Invalid Interpretation Code Negative [facility] Nitrite Ql (U) Negative Negative [facility] pH (U) 5 [pH] Invalid Interpretation Code 5.0-9.0 [facility] Protein Ql (U) Negative Negative [facility] Urobilinogen Test strip (U) [Mass/Vol] normal normal [facility] 151.0 mg/dL Invalid Interpretation Code [facility] Urinalysison 09-09-2020 Clarity (U) Clear Invalid Interpre tation Code Clear [facility] Color (U) yellow Invalid Interpre tation Code yellow [facility] Ketones Ql (U) Negative Negative [facility] Leukocyte esterase Test strip Ql (U) Negative Negative [facility] Specific gravity (U) [Rel density] 1.015 Invalid Interpretation Code 1.003-1.030 [facility] Coding Summaryon 06-20-2020 Coding Summary CODING DATE: 020 [facility] STATUS: Home PAYOR: Medicare APC DESCRIPTION 5791 Pulmonary Treatment 5023 Level 3 Type A ED Visits ADMIT DX: REASON FOR VISIT DX: R06.02 Shortness of breath R05 Cough FINAL DX: PRINCIPAL: J06.9 Acute upper respiratory infection, unspecified SECONDARY: J40 Bronchitis, not specified as acute or chronic F17.210 Nicotine dependence, cigarettes, uncomplicated PYMT PROC APC STAT DESCRIPTION DOCTOR NAME DATE NOTE: The code number assigned matches the documented diagnosis and / or procedure in the patient's chart. However, the narrative phrase printed from the coding software may appear abbreviated, or result in slightly different terminology. Coded By: Estefany Aguilera Date Saved: 06/20/2020 12:49 pm [facility] Coding Summary CODING DATE: 020 [facility] STATUS: Home PAYOR: Medicare APC DESCRIPTION 5791 Pulmonary Treatment ADMIT DX: REASON FOR VISIT DX: R06.02 Shortness of breath FINAL DX: PRINCIPAL: J06.9 Acute upper respiratory infection, unspecified SECONDARY: J40 Bronchitis, not specified as acute or chronic F17.210 Nicotine dependence, cigarettes, uncomplicated PYMT PROC APC STAT DESCRIPTION DOCTOR NAME DATE NOTE: The code number assigned matches the documented diagnosis and / or procedure in the patient's chart. However, the narrative phrase printed from the coding software may appear abbreviated, or result in slightly different terminology. Coded By: Estefany Aguilera Date Saved: 06/20/2020 12:47 pm [facility] .Auto Diff 1on 06-17-2020 Auto Owen % 7 % Normal 1-12 [facility] Comment on above: Performed By: #### 7 [id number], [id number] #### [facility] (DEFAULT) [address] [place] [address] Baso Abs# 0.0 x10 Normal 0.0-0.2 [facility] Comment on above: Performed By: #### 7 [id number], [id number], [id number] #### [facility] (DEFAULT) [address] [place] [address] Basophils/100 WBC (Bld) 0.5 % Normal 0.2-2.[address] [facility] Comment on above: Performed By: #### 7 [id number], [id number], [id number], [id number], [id number] #### [facility] (DEFAULT) [address] [place] [address] 114[address] Eos Abs# 0.2 x10 Normal 0.0-0.4 [facility] Comment on above: Performed By: #### 7 [id number], [id number], [id number], [id number] #### [facility] (DEFAULT) [address] [place] [address] Eosinophils/100 WBC (Bld) 2.3 % Normal 0.9-4.0 [facility] Comment on above: Performed By: #### 7 [id number], [id number], [id number], [id number] #### [facility] (DEFAULT) [address] [place] [address] Lymphocytes (Bld) [#/Vol] 2.3 x10 Normal 1.3-2.9 [facility] Comment on above: Performed By: #### 7 [id number], [id number], [id number], [id number], [id number] #### [facility] (DEFAULT) [address] [place] [address] Lymphocytes/100 WBC (Bld) 25 % Normal 14-48 [facility] Comment on above: Performed By: #### 7 [id number], [id number], [id number], [id number], [id number] #### [facility] (DEFAULT) [address] [place] [address] 85087 Owen Abs# 0.7 x10 Normal 0.0-0.8 [facility] Comment on above: Performed By: #### 7 297566, 3762794, [id number], [id number], [id number] #### [facility] (DEFAULT) [address] [place] [address] 59682 Neut Abs# 6.0 x10 Normal 1.5-9.2 [facility] Comment on above: Performed By: #### 7 028600, 4304880, [id number], [id number], [id number] #### [facility] (DEFAULT) [address] [place] [address] 91427 Neutrophils/100 WBC (Bld) 65 % Normal 44-88 [facility] Comment on above: Performed By: #### 7 944146, 6597444, 30578476, [id number], [id number] #### [facility] (DEFAULT) [address] [place] [address] .QC Respiratory Panel 2.1 (B ioFire)on 06-17-2020 Internal Control-Resp Panel 2.1(BioFire) Pass Normal [facility] Comment on above: Order Comment: Order ed by Discern. [[id number]] Performed By: #### 6 [id number] #### [facility] (DEFAULT) [address] [place] [address] CBC w/ Auto Diffon 0 Erythrocyte distribution wid th (RBC) [Ratio] 12.9 % Normal 11.5-15.0 [facility] Comment on above: Performed By: #### 7 259158, 2754741, 78853963, [id number], [id number] #### [facility] (DEFAULT) [address] [place] [address] Hematocrit (Bld) [Volume fraction] 45.1 % Normal 3 4.8-51.9 [facility] Comment on above: Performed By: #### 7 860020, 2021311, 39715803, [id number], [id number] #### [facility] (DEFAULT) [address] [place] [address] Hemoglobin (Bld) [Mass/Vol] 15.6 g/dL Normal 11.8-17. 7 [facility] Comment on above: Performed By: #### 7 820285, 8683882, 40168154, [id number], [id number] #### [facility] (DEFAULT) [address] [place] [address] 37320 Man Diff? Auto Normal [facility] Comment on above: Performed By: #### 7 602775, 9293672, 72398257, [id number], [id number] #### [facility] (DEFAULT) [address] [place] [address] 10993 MCH (RBC) [Entitic mass] 32 pg Normal 24-34 [facility] Comment on above: Performed By: #### 7 575955, 8798667, 73499756, [id number], [id number] #### [facility] (DEFAULT) [address] [place] [address] 58737 MCHC (RBC) [Mass/Vol] 35 g/dL Normal 26-37 [facility] Comment on above: Performed By: #### 7 838618, 0467597, 67182809, [id number], [id number] #### [facility] (DEFAULT) [address] [place] [address] 03980 MCV (RBC) [Entitic vol] 93 fL Normal 81-[address] [facility] Comment on above: Performed By: #### 7 372447, 4391615, 57996869, [id number], [id number] #### [facility] (DEFAULT) [address] [place] [address] Platelet mean volume (Bld) [Entitic vol] 9.9 fL Normal 6.3-10.2 [facility] Comment on above: Performed By: #### 7 925476, 5697471, 81016211, 5640498284, [id number] #### [facility] (DEFAULT) [address] [place] [address] 19481 Platelets (Bld) [#/Vol] 277 x10 Normal 138-427 M [facility] Comment on above: Performed By: #### 7 872055, 1951500, 48612710, [id number], [id number] #### [facility] (DEFAULT) [address] [place] [address] 63171 RBC (Bld) [#/Vol] 4.83 x10 Normal 3.70-5.30 [facility] Comment on above: Performed By: #### 7 761116, 2789220, 26923413, [id number], [id number] #### [facility] (DEFAULT) [address] [place] [address] 11774 WBC (Bld) [#/Vol] 9.3 x10 Normal 3.5-10.5 [facility] Comment on above: Performed By: #### 7 927436, 4766519, 81501834, 2979622757, [id number] #### [facility] (DEFAULT) [address] [place], [place] [id number] [facility] Standardon 06-17-2020 eGFR Non AA >60 [facility] Comment on above: Performed By: #### 7 457569, 5414890, 33146542, [id number], [id number] #### [facility] (DEFAULT) [address] [place] [address] eGFR AA >60 [facility] Comment on above: Result Comment: Landing Support Specialist shannan Kidney disease could be indicated at eGFRs of less than 60 ml/min/1.73m2. Kidney Failure is indicated at less than 15 ml/min/1.73m2 Performed By: #### 7 183524, 6830686, 74719037, [id number], [id number] #### [facility] (DEFAULT) [address] [place] [address] Albumin [Mass/Vol] 4.0 g/dL Normal 3.5-5.0 [facility] Comment on above: Performed By: #### 7 717206, 3805960, 90707002, [id number], [id number] #### [facility] (DEFAULT) [address] [place] [address] Albumin/Globulin [Mass ratio] 1.1 {ratio} Low 1.4-2 .6 [facility] Comment on above: Performed By: #### 7 755940, 3804150, 36939096, [id number], [id number] #### [facility] (DEFAULT) [address] [place] [address] 93260 Alk Phos 70 IU/L Normal 32-91 [facility] Comment on above: Performed By: #### 7 974458, 6746509, 97696777, 0461474555, [id number] #### [facility] (DEFAULT) [address] [place] [address] ALT/SGPT 42.0 IU/L Normal 17.0-63.0 [facility] Comment on above: Performed By: #### 7 472188, 3085289, 44506565, 5455281119, [id number] #### [facility] (DEFAULT) [address] [place] [address] 68662 Anion gap [Moles/Vol] 13.0 mmol/L Normal 5.0-19.0 [facility] Comment on above: Performed By: #### 7 195040, 1771455, 02467051, 3273905749, [id number] #### [facility] (DEFAULT) [address] [place] [address] 44170 AST/SGOT 27 IU/L Normal 15-41 [facility] Comment on above: Performed By: #### 7 621929, 8122033, 65531329, 5943731615, [id number] #### [facility] (DEFAULT) [address] [place] [address] 48276 Bili Total 0.7 mg/dL Normal 0.3-1.2 [facility] Comment on above: Performed By: #### 7 183129, 2318410, 29161509, 8228262125, [id number] #### [facility] (DEFAULT) [address] [place] [address] 87385 Calcium [Mass/Vol] 9.0 mg/dL Normal 8.9-10.3 [facility] Comment on above: Performed By: #### 7 454330, 6333182, 96301124, 4600728373, [id number] #### [facility] (DEFAULT) [address] [place] [address] 77538 Chloride [Moles/Vol] 102 mmol/L Normal 101-111 [facility] Comment on above: Performed By: #### 7 094283, 9499034, 15816521, 4110000087, [id number] #### [facility] (DEFAULT) [address] [place] [address] 31088 CO2 [Moles/Vol] 25 mmol/L Normal 21-32 [facility] Comment on above: Performed By: #### 7 395071, 0846991, 17146082, 0679312814, [id number] #### [facility] (DEFAULT) [address] [place] [address] 37077 Creatinine [Mass/Vol] 0.97 mg/dL Normal 0.90-1.30 [facility] Comment on above: Performed By: #### 7 614094, 0603738, 18894410, 8251049360, [id number] #### [facility] (DEFAULT) [address] [place] [address] 72338 Globulin (S) [Mass/Vol] 3.5 g/dL Normal 1.5-4.[address] [facility] Comment on above: Performed By: #### 7 216159, 1747284, 74514760, 5594090442, [id number] #### [facility] (DEFAULT) [address] [place] [address] 93260 Glucose [Mass/Vol] 123.0 mg/dL High 74.0-118.0 [facility] Comment on above: Performed By: #### 7 860454, 5468254, 44357360, 6803353486, [id number] #### [facility] (DEFAULT) [address] [place] [address] 74428 Osmolality [Osmolality] 276 mOsm/L [facility] Comment on above: Performed By: #### 7 734261, 2844835, 62750163, 1802679415, [id number] #### [facility] (DEFAULT) [address] [place] [address] 78995 Potassium [Moles/Vol] 3.6 mmol/L Normal 3.6-5.1 [facility] Comment on above: Performed By: #### 7 605633, 8565780, 12842673, 2729182555, 2946369939 #### [facility] (DEFAULT) [address] [place] [address] 42286 Protein [Mass/Vol] 7.5 g/dL Normal 6.5-8.1 [facility] Comment on above: Performed By: #### 7 264345, 1632687, 22676251, 4578461351, [id number] #### [facility] (DEFAULT) [address] [place] [address] 24209 Sodium [Moles/Vol] 136.0 mmol/L Normal 136.0-144.0 [facility] Comment on above: Performed By: #### 7 019457, 5873591, 25080470, 9233062103, 8292529648 #### [facility] (DEFAULT) [address] [place] [address] 67022 Urea nitrogen [Mass/Vol] 19 mg/dL Normal 8-26 [facility] Comment on above: Performed By: #### 7 456686, 7814924, 57636885, 0388558345, [id number] #### [facility] (DEFAULT) [address] [place] [address] 50071 Urea nitrogen/Creatinine [Mass ratio] 20.0 mg/mg High 4.6-16.2 [facility] Comment on above: Performed By: #### 7 192195, 3828287, 25192991, 5660334806, [id number] #### [facility] (DEFAULT) [address] [place] [address] 04635 D-Dimeron 06-17-2020 D-Dimer 0.23 mg/L FEU Normal 0.19-0.50 [facility] Comment on above: Result Comment: The INNOVANCE D-Dimer assay (Cutoff Value of > 0.50) is intended for the use as an aid in the diagnosis of venous thromboembolism (VTE) deep vein thrombosis (DVT) or pulmonary embolism (PE). The measurement of D-Dimer should not be used as an aid in the diagnosis of VTE in patients with: ? Therapeutic dose anticoagulant therapy for >24 hours ? Fibrinolytic therapy within previous 7 days ? Trauma or surgery within previous 4 weeks ? Disseminated malignancies ? Aortic aneurysm ? Sepsis, sever infections, pneumonia, severe skin infections ? Liver cirrhosis ? Performed By: #### 7 947006, 8302455, 72361107, [id number], [id number] #### [facility] (DEFAULT) [address] [place] [address] 63526 ED Clinical Summaryon 2019 ED Clinical Summary [facility] - Emergency Department [address] [place] [address] 49834 ED Clinical Summary PERSON INFORMATION Name: GEREMIAS MELCHOR Age: 54 Years Sex: MALE : 1965 MRN: Acct#: Visit Reason: Shortness of breath; SOB Arrival: 06/17/2020 15:26:17 Discharge: 06/17/2020 17:58:00 LOS: 000 02:32 Check In: 06/17/2020 15:26:17 Checkout:06/17/2020 17:58:00 Address: [facility] [address] PCP: Ericka Muniz MD PROVIDER INFORMATION Provider Role Assigned Unassigned Luis A RN, Leonela Sorenson ED Nurse 06/17/2020 15:32:57 Otilia Francois ED PA 06/17/2020 15:58:56 VITALS INFORMATION Vital Sign Triage Latest Temperature Tympanic Temperature Temporal Artery Pulse Rate 105 bpm 98 bpm O2 Sat 100 % 99 % Respiratory Rate 20 br/min 18 br/min Blood Pressure /103 mmHg /103 mmHg MEDICAL INFORMATION Medications Given: Medication Dose Route albuterol-ipratropium 8 puff(s) INH Allergy Information: No known allergies PHYSICIAN DOCUMENTATION DISCHARGE INFORMATION: Discharge Disposition: Home Discharge Location: Home PATIENT EDUCATION INFORMATION Instructions: Upper Respiratory Infection, Adult; Cough, Adult Follow-Up: With: Address: When: Ericka Muniz [address] [place], [place] [id number] Business (1) Within 3 to 5 days DIAGNOSIS: Viral URI with cough Patient Understands: Yes - Patient/family/caregiver verbalizes understanding of instructions given Comment: [facility] ED Note - Physicianon 2019 ED Note - Physician Patient: GEREMIAS MELCHOR N: [id number] Age: 54 years Sex: MALE : 1965 Associated Diagnoses: Viral URI with cough Author: Otilia Francois Basic Information Time seen: Date & time 06/17/2020 15:59:00. History source: Patient. Arrival mode: Private vehicle. History limitation: None. Additional information: Chief Complaint from Nursing Triage Note : Chief Complaint 06/17/2020 15:38 EST Chief Complaint SHORTNESS OF BREATH W/ EXERTION . History of Present Illness 54-year-old male presents to the emergency department complaining of shortness of breath. Patient states he has been ill for almost 2 weeks. Said nasal congestion, sinus pressure with cough. He denies any fever or chills. He was seen 2 days ago at local urgent care center and had rapid Covid test that was reported as negative. He had a chest x-ray which showed bronchitis and he was started on Zithromax. Patient is a current smoker. Patient states he came to the ER today to get blood work. Review of Systems Constitutional symptoms: No fever, no chills. ENMT symptoms: Sore throat, nasal congestion, sinus pain. Respiratory symptoms: Shortness of breath, cough, No wheezing, Cardiovascular symptoms: No chest pain, no palpitations, no tachycardia, no syncope. Gastrointestinal symptoms: No abdominal pain, no nausea, no vomiting, no diarrhea. Additional review of systems information: All other systems reviewed and otherwise negative. Health Status Allergies: Allergic Reactions (Selected) No known allergies. Past Medical/ Family/ Social History Medical history: No active or resolved past medical history items have been selected or recorded.. Surgical history: No active procedure history items have been selected or recorded.. Family history: No family history items have been selected or recorded.. Social history: Social & Psychosocial Habits Alcohol 06/17/2020 Alcohol Use: Current Frequency: Daily Substance Abuse 06/17/2020 Substance use: Never Tobacco 06/17/2020 Smoking tobacco use: 5-9 cigarettes (between 1 Electronic Cigarette/Vaping 06/17/2020 Electronic Cigarette Use: Never . Problem list: Active Problems (2) Anxiety ETOH abuse . Physical Examination Vital Signs Vital Signs 06/17/2020 15:38 EST Temperature Oral 37 DegC Peripheral Pulse Rate 105 bpm HI Respiratory Rate 20 br/min Systolic Blood Pressure 175 mmHg HI Diastolic Blood Pressure 103 mmHg HI SpO2 100 % Oxygen Therapy Room air . Measurements 06/17/2020 15:43 EST Weight Dosing 110.000 kg 06/17/2020 15:43 EST Height/Length Dosing 183.000 cm 06/17/2020 15:38 EST Height/Length Estimated 183.000 cm Weight Estimated 110.000 kg . General: Alert, no acute distress. Skin: Warm, dry, pink, intact. Eye: Normal conjunctiva. Ears, nose, mouth and throat: Oral mucosa moist. Neck: Supple, trachea midline, no tenderness. Cardiovascular: Regular rate and rhythm, No murmur, Normal peripheral perfusion, No edema. Respiratory: Lungs are clear to auscultation, respirations are non-labored, breath sounds are equal, Symmetrical chest wall expansion. Gastrointestinal: Soft, Nontender, Non distended, Normal bowel sounds. Musculoskeletal: Normal ROM, normal strength. Neurological: Alert and oriented to person, place, time, and situation, normal motor observed, normal speech observed, normal coordination observed. Medical Decision Making Differential Diagnosis: Bronchitis, chronic obstructive pulmonary disease, URI. Rationale: Geremias presented to ER today complaining of shortness of breath. He has been having symptoms for several weeks. He has no known diagnosed history of COPD or asthma. He is a current smoker and has tried quitting in the past without much success. He is in no acute distress and his lung sounds are clear. He had recently been seen at local urgent care center and started on steroids and Zithromax for which he stated he felt better for short period of time and then the dyspnea continued. He has an inhaler but has really not been using it properly. He is not using it with a spacer and is only taking 1 puff in the morning. Patient had twelve-lead EKG completed 2 days ago at local urgent care center and this is reviewed and shows a normal sinus rhythm without any ectopy or ischemia. Lab values today showed negative Covid as well as negative respiratory panel. High-sensitivity troponin was at 4. CBC without leukocytosis with WBCs at 9.3 and normal hemoglobin hematocrit. D-dimer is within normal at 0.23. Patient was instructed on inhaler use with spacer and advised he can use this 2 puffs every 4-6 hours as needed for shortness of breath. He is advised to complete his current medications as previously prescribed. We discussed that this may be related to his smoking history. He is encouraged to cease smoking. He will follow up with his primary care physician for additional testing and definitive diagnosis with treatment. Patient is aware he can return to ER for any worsening or concerning symptoms.. Documents reviewed: Emergency department nurses' notes. Orders Launch Orders Laboratory: Respiratory Panel 2.1 w COVID-19 (BioFire) (Order): Nasopharyngeal Swab, 06/17/2020 16:00 EST, Stat collect, Nurse collect, No, Yes, 06/03/2020, No, No, No, Not D-Dimer (Order): Blood, Stat collect, 06/17/2020 15:59 EST, Lab Collect CMP Standard (Order): Blood, Stat collect, 06/17/2020 15:59 EST, Lab Collect CBC w/ Auto Diff (Order): Blood, Stat collect, 06/17/2020 15:59 EST, Lab Collect, Launch Orders Pharmacy: Combivent (Order): 8 puff(s), INH, Once Respiratory Therapy: MDI Spacer (Order): 06/17/2020 16:07 EST MDI Instructions (Order): 06/17/2020 16:07 EST, Launch Orders Laboratory: High Sensitivity Troponin I (Order): Blood, Stat collect, 06/17/2020 16:12 EST, Lab Collect. Results review: Lab results : Lab Flowsheet 06/17/2020 16:12 EST Troponin I High Sensitivity 4 pg/mL 06/17/2020 16:00 EST Employed in healthcare? No Symptomatic as defined by CDC? Yes Date of onset (Lab) 06/03/2020 Hospitalized due to COVID-19? No In ICU? No Group care resident? No status? Not SARS-CoV-2 (COVID-19) -BioFire Not Detected Sodium Level 136.0 mmol/L Potassium Level 3.6 mmol/L Chloride Level 102 mmol/L CO2 25 mmol/L Anion Gap 13.0 mmol/L Glucose Level 123.0 mg/dL HI BUN 19 mg/dL Creatinine Level 0.97 mg/dL BUN/Creat Ratio 20.0 HI eGFR AA >60 mL/min/1.73m2 NA eGFR Non AA >60 mL/min/1.73m2 NA Calcium Level 9.0 mg/dL Bili Total 0.7 mg/dL Alk Phos 70 IU/L AST/SGOT 27 IU/L ALT/SGPT 42.0 IU/L Protein Total 7.5 gm/dL Albumin Level 4.0 gm/dL Globulin 3.5 gm/dL A/G Ratio 1.1 LOW Osmolality 276 mOsm/L NA WBC 9.3 x103/mcL RBC 4.83 x106/mcL Hgb 15.6 gm/dL Hct 45.1 % MCV 93 fL MCH 32 pg MCHC 35 gm/dL RDW 12.9 % Platelet 277 x103/mcL MPV 9.9 fL Auto Neut % 65 % Auto Lymph % 25 % Auto Owen % 7 % Auto Eos % 2.3 % Auto Baso % 0.5 % Neut Abs# 6.0 x103/mcL Lymph Abs# 2.3 x103/mcL Owen Abs# 0.7 x103/mcL Eos Abs# 0.2 x103/mcL Baso Abs# 0.0 x103/mcL D-Dimer 0.23 mg/L FEU Adenovirus -BioFire Not Detected Bordetella parapertussis -BioFire Not Detected Bordetella pertussis -BioFire Not Detected Chlamydia pneumoniae -BioFire Not Detected Coronavirus 229E (Not COVID-19) -BioFire Not Detected Coronavirus HKU1 (Not COVID-19) -BioFire Not Detected Coronavirus NL63 (Not COVID-19) -BioFire Not Detected Coronavirus OC43 (Not COVID-19) -BioFire Not Detected Human Metapneumovirus -BioFire Not Detected Human Rhinovirus/Enterovirus -BioFire Not Detected Influenza A (no subtype) -BioFire Not Detected Influenza A -BioFire Not Detected Influenza A H1 -BioFire Not Detected Influenza A H1-2009 -BioFire Not Detected Influenza A H3 -BioFire Not Detected Influenza B -BioFire Not Detected Mycoplasma pneumoniae -BioFire Not Detected Parainfluenza Virus 1 -BioFire Not Detected Parainfluenza Virus 2 -BioFire Not Detected Parainfluenza Virus 3 -BioFire Not Detected Parainfluenza Virus 4 -BioFire Not Detected Respiratory Syncytial Virus -BioFire Not Detected Tube Collected Yes . Impression and Plan Diagnosis Viral URI with cough ([id number] J06.9, Discharge, Medical) Plan Condition: Stable. Disposition: Discharged: Time 06/17/2020 17:32:00, to home. Patient was given the following educational materials: Cough, Adult, Upper Respiratory Infection, Adult. Follow up with: Ericka Muniz Within 3 to 5 days. Counseled: Patient, Regarding diagnosis, Regarding diagnostic results, Regarding treatment plan, Patient indicated understanding of instructions. [Electronically Signed on: 06/17/2020 18:26 EST] Otilia Francois [Verified on: 06/17/2020 18:26 EST] Otilia rFancois [facility] ED Note-Nursingon 06-17-2020 ED Note-Nursing Patient arrives to [facility] ED via private vehicle. Ambulated with a steady gait to room 5. Alert and oriented X4. C/O shortness of breath. Patient reports receiving a steroid and Z pack from family doctor. Patient reports that he felt better after taking medications. States he tested negative for COVID 19 on Tuesday. Patient reports that he had 9/10 symptoms for COVID 19. States he still feels more short of breath than normal. Normal [facility] ED Patient Education Noteon 06-17-2020 ED Patient Education Note Education Omari grossman Upper Respiratory Infection, Adult An upper respiratory infection (URI) is a common viral infection of the nose, throat, and upper air passages that lead to the lungs. The most common type of URI is the common cold. URIs usually get better on their own, without medical treatment. What are the causes? A URI is caused by a virus. You may catch a virus by: ? Breathing in droplets from an infected person's cough or sneeze. ? Touching something that has been exposed to the virus (contaminated) and then touching your mouth, nose, or eyes. What increases the risk? You are more likely to get a URI if: ? You are very young or very old. ? It is malaika or winter. ? You have close contact with others, such as at a daycare, school, or health care facility. ? You smoke. ? You have long-term (chronic) heart or lung disease. ? You have a weakened disease-fighting (immune) system. ? You have nasal allergies or asthma. ? You are experiencing a lot of stress. ? You work in an area that has poor air circulation. ? You have poor nutrition. What are the signs or symptoms? A URI usually involves some of the following symptoms: ? Runny or stuffy (congested) nose. ? Sneezing. ? Cough. ? Sore throat. ? Headache. ? Fatigue. ? Fever. ? Loss of appetite. ? Pain in your forehead, behind your eyes, and over your cheekbones (sinus pain). ? Muscle aches. ? Redness or irritation of the eyes. ? Pressure in the ears or face. How is this diagnosed? This condition may be diagnosed based on your medical history and symptoms, and a physical exam. Your health care provider may use a cotton swab to take a mucus sample from your nose (nasal swab). This sample can be tested to determine what virus is causing the illness. How is this treated? URIs usually get better on their own within 7?10 days. You can take steps at home to relieve your symptoms. Medicines cannot cure URIs, but your health care provider may recommend certain medicines to help relieve symptoms, such as: ? Mhzw-dac-mpsilhh cold medicines. ? Cough suppressants. Coughing is a type of defense against infection that helps to clear the respiratory system, so take these medicines only as recommended by your health care provider. ? Fever-reducing medicines. Follow these instructions at home: Activity ? Rest as needed. ? If you have a fever, stay home from work or school until your fever is gone or until your health care provider says you are no longer contagious. Your health care provider may have you wear a face mask to prevent your infection from spreading. Relieving symptoms ? Gargle with a salt-water mixture 3?4 times a day or as needed. To make a salt-water mixture, completely dissolve ??1 tsp of salt in 1 cup of warm water. ? Use a cool-mist humidifier to add moisture to the air. This can help you breathe more easily. Eating and drinking ? Drink enough fluid to keep your urine pale yellow. ? Eat soups and other clear broths. General instructions ? Take svos-lyh-rkcsdba and prescription medicines only as told by your health care provider. These include cold medicines, fever reducers, and cough suppressants. ? Do not use any products that contain nicotine or tobacco, such as cigarettes and e-cigarettes. If you need help quitting, ask your health care provider. ? Stay away from secondhand smoke. ? Stay up to date on all immunizations, including the yearly (annual) flu vaccine. ? Keep all follow-up visits as told by your health care provider. This is important. How to prevent the spread of infection to others ? URIs can be passed from person to person (are contagious). To prevent the infection from spreading: ? Wash your hands often with soap and water. If soap and water are not available, use hand aluminum boat inspector. ? Avoid touching your mouth, face, eyes, or nose. ? Cough or sneeze into a tissue or your sleeve or elbow instead of into your hand or into the air. Contact a health care provider if: ? You are getting worse instead of better. ? You have a fever or chills. ? Your mucus is brown or red. ? You have yellow or brown discharge coming from your nose. ? You have pain in your face, especially when you bend forward. ? You have swollen neck glands. ? You have pain while swallowing. ? You have white areas in the back of your throat. Get help right away if: ? You have shortness of breath that gets worse. ? You have severe or persistent: ? Headache. ? Ear pain. ? Sinus pain. ? Chest pain. ? You have chronic lung disease along with any of the following: ? Wheezing. ? Prolonged cough. ? Coughing up blood. ? A change in your usual mucus. ? You have a stiff neck. ? You have changes in your: ? Vision. ? Hearing. ? Thinking. ? Mood. Summary ? An upper respiratory infection (URI) is a common infection of the nose, throat, and upper air passages that lead to the lungs. ? A URI is caused by a virus. ? URIs usually get better on their own within 7?10 days. ? Medicines cannot cure URIs, but your health care provider may recommend certain medicines to help relieve symptoms. This information is not intended to replace advice given to you by your health care provider. Make sure you discuss any questions you have with your health care provider. Document Released: 12/21/2001 Document Revised: 07/05/2019 Document Reviewed: 02/10/2018 [employer] Patient Education ? 2020 [employer] ENT Cough, Adult Coughing is a reflex that clears your throat and your airways (respiratory system). Coughing helps to heal and protect your lungs. It is normal to cough occasionally, but a cough that happens with other symptoms or lasts a long time may be a sign of a condition that needs treatment. An acute cough may only last 2?3 weeks, while a chronic cough may last 8 or more weeks. Coughing is commonly caused by: ? Infection of the respiratory systemby viruses or bacteria. ? Breathing in substances that irritate your lungs. ? Allergies. ? Asthma. ? Mucus that runs down the back of your throat (postnasal drip). ? Smoking. ? Acid backing up from the stomach into the esophagus (gastroesophageal reflux). ? Certain medicines. ? Chronic lung problems. ? Other medical conditions such as heart failure or a blood clot in the lung (pulmonary embolism). Follow these instructions at home: Medicines ? Take jocu-ois-vqsykxz and prescription medicines only as told by your health care provider. ? Talk with your health care provider before you take a cough suppressant medicine. Lifestyle ? Avoid cigarette smoke. Do not use any products that contain nicotine or tobacco, such as cigarettes, e-cigarettes, and chewing tobacco. If you need help quitting, ask your health care provider. ? Drink enough fluid to keep your urine pale yellow. ? Avoid caffeine. ? Do not drink alcohol if your health care provider tells you not to drink. General instructions ? Pay close attention to changes in your cough. Tell your health care provider about them. ? Always cover your mouth when you cough. ? Avoid things that make you cough, such as perfume, candles, cleaning products, or campfire or tobacco smoke. ? If the air is dry, use a cool mist vaporizer or humidifier in your bedroom or your home to help loosen secretions. ? If your cough is worse at night, try to sleep in a semi-upright position. ? Rest as needed. ? Keep all follow-up visits as told by your health care provider. This is important. Contact a health care provider if you: ? Have new symptoms. ? Cough up pus. ? Have a cough that does not get better after 2?3 weeks or gets worse. ? Cannot control your cough with cough suppressant medicines and you are losing sleep. ? Have pain that gets worse or pain that is not helped with medicine. ? Have a fever. ? Have unexplained weight loss. ? Have night sweats. Get help right away if: ? You cough up blood. ? You have difficulty breathing. ? Your heartbeat is very fast. These symptoms may represent a serious problem that is an emergency. Do not wait to see if the symptoms will go away. Get medical help right away. Call your local emergency services (911 in the [place] Do not drive yourself to the hospital. Summary ? Coughing is a reflex that clears your throat and your airways. It is normal to cough occasionally, but a cough that happens with other symptoms or lasts a long time may be a sign of a condition that needs treatment. ? Take xsuw-rwe-qoilsny and prescription medicines only as told by your health care provider. ? Always cover your mouth when you cough. ? Contact a health care provider if you have new symptoms or a cough that does not get better after 2?3 weeks or gets worse. This information is not intended to replace advice given to you by your health care provider. Make sure you discuss any questions you have with your health care provider. Document Released: 12/24/2011 Document Revised: 07/16/2019 Document Reviewed: 07/16/2019 [employer] Patient Education ? 2019 [employer] Normal [facility] ED Patient Summaryon 020 ED Patient Summary [facility] - Emergency Department [address] [id number] PATIENT DISCHARGE INSTRUCTIONS Patient Information Name: GEREMIAS MLECHOR Age: 54 Years Date of : 1965 Reason For Visit: Shortness of breath; SOB Arrival Time: 06/17/2020 15:26:17 Primary Care Physician: Ericka Muniz MD Attending Physician: Landon Vegas MD Comment: Visit Diagnosis: Diagnoses This Visit Shortness of breath ([id number]) Viral URI with cough (J06.9) Prescription Information: If you have been given a prescription for narcotics, seek immediate medical attention if you have any difficulty breathing or any sudden status changes such as confusion and sleepiness. If you or anyone you know is experiencing suicidal thoughts, mental health, alcohol and/or drug addiction problems; contact the [facility] 31/01 Crisis Hotline -Text 4HBYK nr 197343. If you received any narcotics, sedation, or any other medication that causes drowsiness for the next 24 hours, unless otherwise directed: ? Do not drive a car. ? Do not operate machinery such as power tools, lawn mowers, drills, sewing machines, or stoves ? Avoid alcoholic beverages and drugs for allergies, nerves, or sleep ? Do not make important personal or business decisions or sign any legal documents With: Address: When: Ericka Muniz [address] [place] [id number] [facility] (1) Within 3 to 5 days Medication Information: The exam and treatment you received today in the [facility] Emergency Department were for an urgent problem and are not intended as complete care. It is important for you to follow up with a doctor, nurse practitioner, or physician?s medical receptionist assistant for ongoing care. If your symptoms become worse or you do not improve as expected and you are unable to reach your usual health care provider, you should return to the Emergency Department, we are available 24 hours a day. For those patients who have received Radiology results, the interpretation of your X-ray as given to you by our Emergency Department physician is only a preliminary report. The Radiologist will review your films and if there is a change in the diagnosis you will be notified by phone. Please make sure you have provided a working phone number so we can reach you if necessary. In the event that you had a lab culture while you were a patient in the Emergency Department, you will be notified by phone if there is a need to change your antibiotic. Please make sure you have provided a working phone number so we can reach you if necessary. [facility] Emergency Department has provided you with a complete list of medications post discharge. 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 Any specific questions regarding your chronic medications and dosages should be discussed with your primary care physician(s) and/or pharmacist. Visit Information Allergies: Substance Reaction Symptoms Type Comments No known allergies Drug Vital Signs: Vitals and Measurements this Visit (last charted value for your 06/17/2020 visit) Vital Signs This Visit Temperature Oral: 37 DegC Peripheral Pulse Rate: 98 bpm Respiratory Rate: 18 br/min Systolic Blood Pressure: 133 mmHg Diastolic Blood Pressure: 99 mmHg SpO2: 99 % Oxygen Therapy: Room air Measurements This Visit Height/Length Dosin.000 cm Height/Length Estimated: 183.000 cm Weight Dosin.000 kg Weight Estimated: 110.000 kg Problems List: Problem Onset Comments Anxiety ETOH abuse Patient Education Upper Respiratory Infection, Adult An upper respiratory infection (URI) is a common viral infection of the nose, throat, and upper air passages that lead to the lungs. The most common type of URI is the common cold. URIs usually get better on their own, without medical treatment. What are the causes? A URI is caused by a virus. You may catch a virus by: ? Breathing in droplets from an infected person's cough or sneeze. ? Touching something that has been exposed to the virus (contaminated) and then touching your mouth, nose, or eyes. What increases the risk? You are more likely to get a URI if: ? You are very young or very old. ? It is malaika or winter. ? You have close contact with others, such as at a daycare, school, or health care facility. ? You smoke. ? You have long-term (chronic) heart or lung disease. ? You have a weakened disease-fighting (immune) system. ? You have nasal allergies or asthma. ? You are experiencing a lot of stress. ? You work in an area that has poor air circulation. ? You have poor nutrition. What are the signs or symptoms? A URI usually involves some of the following symptoms: ? Runny or stuffy (congested) nose. ? Sneezing. ? Cough. ? Sore throat. ? Headache. ? Fatigue. ? Fever. ? Loss of appetite. ? Pain in your forehead, behind your eyes, and over your cheekbones (sinus pain). ? Muscle aches. ? Redness or irritation of the eyes. ? Pressure in the ears or face. How is this diagnosed? This condition may be diagnosed based on your medical history and symptoms, and a physical exam. Your health care provider may use a cotton swab to take a mucus sample from your nose (nasal swab). This sample can be tested to determine what virus is causing the illness. How is this treated? URIs usually get better on their own within 7?10 days. You can take steps at home to relieve your symptoms. Medicines cannot cure URIs, but your health care provider may recommend certain medicines to help relieve symptoms, such as: ? Xozw-ihn-faobbis cold medicines. ? Cough suppressants. Coughing is a type of defense against infection that helps to clear the respiratory system, so take these medicines only as recommended by your health care provider. ? Fever-reducing medicines. Follow these instructions at home: Activity ? Rest as needed. ? If you have a fever, stay home from work or school until your fever is gone or until your health care provider says you are no longer contagious. Your health care provider may have you wear a face mask to prevent your infection from spreading. Relieving symptoms ? Gargle with a salt-water mixture 3?4 times a day or as needed. To make a salt-water mixture, completely dissolve ??1 tsp of salt in 1 cup of warm water. ? Use a cool-mist humidifier to add moisture to the air. This can help you breathe more easily. Eating and drinking ? Drink enough fluid to keep your urine pale yellow. ? Eat soups and other clear broths. General instructions ? Take osgh-uap-wxvyvli and prescription medicines only as told by your health care provider. These include cold medicines, fever reducers, and cough suppressants. ? Do not use any products that contain nicotine or tobacco, such as cigarettes and e-cigarettes. If you need help quitting, ask your health care provider. ? Stay away from secondhand smoke. ? Stay up to date on all immunizations, including the yearly (annual) flu vaccine. ? Keep all follow-up visits as told by your health care provider. This is important. How to prevent the spread of infection to others ? URIs can be passed from person to person (are contagious). To prevent the infection from spreading: ? Wash your hands often with soap and water. If soap and water are not available, use hand aluminum boat inspector. ? Avoid touching your mouth, face, eyes, or nose. ? Cough or sneeze into a tissue or your sleeve or elbow instead of into your hand or into the air. Contact a health care provider if: ? You are getting worse instead of better. ? You have a fever or chills. ? Your mucus is brown or red. ? You have yellow or brown discharge coming from your nose. ? You have pain in your face, especially when you bend forward. ? You have swollen neck glands. ? You have pain while swallowing. ? You have white areas in the back of your throat. Get help right away if: ? You have shortness of breath that gets worse. ? You have severe or persistent: ? Headache. ? Ear pain. ? Sinus pain. ? Chest pain. ? You have chronic lung disease along with any of the following: ? Wheezing. ? Prolonged cough. ? Coughing up blood. ? A change in your usual mucus. ? You have a stiff neck. ? You have changes in your: ? Vision. ? Hearing. ? Thinking. ? Mood. Summary ? An upper respiratory infection (URI) is a common infection of the nose, throat, and upper air passages that lead to the lungs. ? A URI is caused by a virus. ? URIs usually get better on their own within 7?10 days. ? Medicines cannot cure URIs, but your health care provider may recommend certain medicines to help relieve symptoms. This information is not intended to replace advice given to you by your health care provider. Make sure you discuss any questions you have with your health care provider. Document Released: 12/21/2001 Document Revised: 07/05/2019 Document Reviewed: 02/10/2018 [employer] Patient Education ? 2019 [employer] Cough, Adult Coughing is a reflex that clears your throat and your airways (respiratory system). Coughing helps to heal and protect your lungs. It is normal to cough occasionally, but a cough that happens with other symptoms or lasts a long time may be a sign of a condition that needs treatment. An acute cough may only last 2?3 weeks, while a chronic cough may last 8 or more weeks. Coughing is commonly caused by: ? Infection of the respiratory systemby viruses or bacteria. ? Breathing in substances that irritate your lungs. ? Allergies. ? Asthma. ? Mucus that runs down the back of your throat (postnasal drip). ? Smoking. ? Acid backing up from the stomach into the esophagus (gastroesophageal reflux). ? Certain medicines. ? Chronic lung problems. ? Other medical conditions such as heart failure or a blood clot in the lung (pulmonary embolism). Follow these instructions at home: Medicines ? Take jcxm-aki-vassdsk and prescription medicines only as told by your health care provider. ? Talk with your health care provider before you take a cough suppressant medicine. Lifestyle ? Avoid cigarette smoke. Do not use any products that contain nicotine or tobacco, such as cigarettes, e-cigarettes, and chewing tobacco. If you need help quitting, ask your health care provider. ? Drink enough fluid to keep your urine pale yellow. ? Avoid caffeine. ? Do not drink alcohol if your health care provider tells you not to drink. General instructions ? Pay close attention to changes in your cough. Tell your health care provider about them. ? Always cover your mouth when you cough. ? Avoid things that make you cough, such as perfume, candles, cleaning products, or campfire or tobacco smoke. ? If the air is dry, use a cool mist vaporizer or humidifier in your bedroom or your home to help loosen secretions. ? If your cough is worse at night, try to sleep in a semi-upright position. ? Rest as needed. ? Keep all follow-up visits as told by your health care provider. This is important. Contact a health care provider if you: ? Have new symptoms. ? Cough up pus. ? Have a cough that does not get better after 2?3 weeks or gets worse. ? Cannot control your cough with cough suppressant medicines and you are losing sleep. ? Have pain that gets worse or pain that is not helped with medicine. ? Have a fever. ? Have unexplained weight loss. ? Have night sweats. Get help right away if: ? You cough up blood. ? You have difficulty breathing. ? Your heartbeat is very fast. These symptoms may represent a serious problem that is an emergency. Do not wait to see if the symptoms will go away. Get medical help right away. Call your local emergency services (911 in the [place] Do not drive yourself to the hospital. Summary ? Coughing is a reflex that clears your throat and your airways. It is normal to cough occasionally, but a cough that happens with other symptoms or lasts a long time may be a sign of a condition that needs treatment. ? Take tcex-nsj-nyqkgnj and prescription medicines only as told by your health care provider. ? Always cover your mouth when you cough. ? Contact a health care provider if you have new symptoms or a cough that does not get better after 2?3 weeks or gets worse. This information is not intended to replace advice given to you by your health care provider. Make sure you discuss any questions you have with your health care provider. Document Released: 12/24/2011 Document Revised: 07/16/2019 Document Reviewed: 07/16/2019 [employer] Patient Education ? 2019 [employer] Viruses or Bacteria What?s got you sick? Antibiotics only treat bacterial infections. Viral illnesses cannot be treated with antibiotics. When an antibiotic is not prescribed, ask your healthcare professional for tips on how to relieve symptoms and feel better. Usual Cause Illness Viruses Bacteria Antibiotic Needed Cold/Runny Nose NO Bronchitis/Chest Cold (in otherwise healthy children and adults) NO Whooping Cough Yes Flu NO Strep Throat Yes Sore Throat (except strep) NO Fluid in the middle ear (otitis media with effusion) NO Urinary Tract Infection Yes Antibiotics Aren?t Always the Answer www.cdc.gov/getsmart GET SMART Know When Antibiotics Work [place].S[place] Department of Health and Human Services Centers for Disease Control and Prevention March 2014 Normal [facility] Extra Redon 06-17-2020 Tube Collected Yes [facility] Comment on above: Performed By: #### [id number] #### [facility] (DEFAULT) [address] [place] [id number] TnI HSon 06-17-2020 Troponin I High Sensitivity 4 pg/mL Normal <=20 [facility] Comment on above: Result Comment: Male Baseline Delta 1Hr (Note pg/mL=ng/L) <20pg/mL 50-60% >20pg/mL 20% Female Baseline Delta 1Hr <15pg/mL 50-60% >15pg/mL 20% Other Baseline Delta 1Hr <18ng/mL 50-60% >18ng/mL 20% ([place] [employer] Guidelines February 2018) Performed By: #### 7 [id number] #### [facility] (DEFAULT) [address] [place] [id number] Metabolic Panelon 04-08-2020 ALT [Catalytic activity/Vol] 50.0 U/L Invalid Interpretation Code [facility] Bilirubin [Mass/Vol] 0.3 mg/dL 0.0[facility]1.0 [facility] (Bld[facility] [Mass fraction] 6.6 % 4.3-6.3 [facility] Albumin [Mass/Vol] 4.50 g/dL Invalid Inter pretation Code [facility] AST [Catalytic activity/Vol] 31.0 U/L Invalid Interpretation Code [facility] HbA1c (Bld) [Mass fraction] 6.60 % Invalid Interpretation Code [facility] No Panel Informationon 04-08 6.6 Invalid Interpretation Code 4.3-6.3 [facility] 0.3 Invalid Interpretation Code 0.0-1.0 [facility] Negative Invalid Interpretation Code Negative [facility] Otheron 04-08-2020 Negative Negative saambaa 4+ Invalid Interpretation Code Negative [facility] Clear Invalid Interpretation Code Clear [facility] normal Invalid Interpretation Code normal [facility] yellow Invalid Interpretation Code yellow [facility] 50 0-50 saambaa 6 Invalid Interpretation Code 5.0-9.0 [facility] 31 Invalid Interpretation Code 0-40 [facility] 78 Invalid Interpretation Code 31-155 [facility] 1.010 Invalid Interpretation Code 1.003-1. 030 [facility] 1.5 Invalid Interpretation Code 1.0-2.4 [facility] 4.5 Invalid Interpretation Code 3.7-4.5 [facility] 7.5 Invalid Interpretation Code 6.3-7.9 [facility] 143 Invalid Interpretation Code [facility] 115.0 mg/dL Invalid Interpretation Code <140 [facility] ls Invalid Interpretation Code [facility] MRI KNEE RIGHT WO CONTRASTon 03-25-2020 MRI KNEE RIGHT WO CONTRAST EXAMINATION: MRI OF THE RIGHT KNEE WITHOUT CONTRAST, 03/25/2020 2:39 pm TECHNIQUE: Multiplanar multisequence MRI of the right knee was performed without the administration of intravenous contrast. COMPARISON: None. HISTORY: ORDERING SYSTEM PROVIDED HISTORY: Right knee pain, unspecified chronicity FINDINGS: MENISCI: Lateral meniscus is normal in bulk, contour, and signal intensity, without discrete tear identified. There is inner free edge degeneration/truncation of the medial meniscus without acute meniscal tear identified. CRUCIATE LIGAMENTS: The anterior and posterior cruciate ligaments are thickened although not definitely torn, most compatible with cruciate sprains. EXTENSOR MECHANISM: Quadriceps and patellar tendons are intact. Medial/lateral patellofemoral retinacula are intact. There is a prepatellar fluid collection spanning 2.5 x 2.2 x 0.6 cm. LATERAL COLLATERAL LIGAMENT COMPLEX: The popliteus tendon, biceps femoris tendon, fibular collateral ligament and iliotibial band are intact. MEDIAL COLLATERAL LIGAMENT COMPLEX: Full-thickness tear of the MCL at its femoral attachment. KNEE JOINT: Multifocal grade 3-4 chondromalacia within the medial and patellofemoral compartments. Small patellofemoral joint effusion. BONE MARROW: Subtle subcortical curvilinear hypointense signal with patchy surrounding marrow edema are most compatible with a microtrabecular infraction. IMPRESSION: Inner free edge degeneration of the medial meniscus. 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 Full-thickness tear of the MCL from its femoral attachment. Subtle microtrabecular infraction within the medial tibial plateau with patchy surrounding marrow edema. Prepatellar bursitis measuring 2.5 x 2.2 x 0.6 cm. 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 Thickening of the anterior and posterior cruciate ligaments, suggestive of sprains. No definite tear identified. Interpreted by: Jos Martins MD Signed by: Jos Martins MD 03/25/20 Final result Normal [facility] Inner free edge dege neration of the medial meniscus. 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 Full-thickness tear of the MCL from its femoral attachment. Subtle microtrabecular infraction within the medial tibial plateau with patchy surrounding marrow edema. Prepatellar bursitis measuring 2.5 x 2.2 x 0.6 cm. 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 Thickening of the anterior and posterior cruciate ligaments, suggestive of sprains. No definite tear identified. [place], [place] EXAMINATION: MRI OF THE RIGHT KNEE WITHOUT CONTRAST, 03/25/2020 2:39 pm TECHNIQUE: Multiplanar multisequence MRI of the right knee was performed without the administration of intravenous contrast. COMPARISON: None. HISTORY: ORDERING SYSTEM PROVIDED HISTORY: Right knee pain, unspecified chronicity FINDINGS: MENISCI: Lateral meniscus is normal in bulk, contour, and signal intensity, without discrete tear identified. There is inner free edge degeneration/truncation of the medial meniscus without acute meniscal tear identified. CRUCIATE LIGAMENTS: The anterior and posterior cruciate ligaments are thickened although not definitely torn, most compatible with cruciate sprains. EXTENSOR MECHANISM: Quadriceps and patellar tendons are intact. Medial/lateral patellofemoral retinacula are intact. There is a prepatellar fluid collection spanning 2.5 x 2.2 x 0.6 cm. LATERAL COLLATERAL LIGAMENT COMPLEX: The popliteus tendon, biceps femoris tendon, fibular collateral ligament and iliotibial band are intact. MEDIAL COLLATERAL LIGAMENT COMPLEX: Full-thickness tear of the MCL at its femoral attachment. KNEE JOINT: Multifocal grade 3-4 chondromalacia within the medial and patellofemoral compartments. Small patellofemoral joint effusion. BONE MARROW: Subtle subcortical curvilinear hypointense signal with patchy surrounding marrow edema are most compatible with a microtrabecular infraction. [place], [place] Ezekiel, Mhpn Incoming R adiant Results From [employer] - 03/25/2020 3:02 PM EDT EXAMINATION: MRI OF THE RIGHT KNEE WITHOUT CONTRAST, 03/25/2020 2:39 pm TECHNIQUE: Multiplanar multisequence MRI of the right knee was performed without the administration of intravenous contrast. COMPARISON: None. HISTORY: ORDERING SYSTEM PROVIDED HISTORY: Right knee pain, unspecified chronicity FINDINGS: MENISCI: Lateral meniscus is normal in bulk, contour, and signal intensity, without discrete tear identified. There is inner free edge degeneration/truncation of the medial meniscus without acute meniscal tear identified. CRUCIATE LIGAMENTS: The anterior and posterior cruciate ligaments are thickened although not definitely torn, most compatible with cruciate sprains. EXTENSOR MECHANISM: Quadriceps and patellar tendons are intact. Medial/lateral patellofemoral retinacula are intact. There is a prepatellar fluid collection spanning 2.5 x 2.2 x 0.6 cm. LATERAL COLLATERAL LIGAMENT COMPLEX: The popliteus tendon, biceps femoris tendon, fibular collateral ligament and iliotibial band are intact. MEDIAL COLLATERAL LIGAMENT COMPLEX: Full-thickness tear of the MCL at its femoral attachment. KNEE JOINT: Multifocal grade 3-4 chondromalacia within the medial and patellofemoral compartments. Small patellofemoral joint effusion. BONE MARROW: Subtle subcortical curvilinear hypointense signal with patchy surrounding marrow edema are most compatible with a microtrabecular infraction. IMPRESSION: Inner free edge degeneration of the medial meniscus. 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 Full-thickness tear of the MCL from its femoral attachment. Subtle microtrabecular infraction within the medial tibial plateau with patchy surrounding marrow edema. Prepatellar bursitis measuring 2.5 x 2.2 x 0.6 cm. 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 Thickening of the anterior and posterior cruciate ligaments, suggestive of sprains. No definite tear identified. [place], [place] MRI SHOULDER RIGHT WO CONTRA [facility] 02-12-2020 MRI SHOULDER RIGHT WO CONTRAST EXAMINATION: MRI OF THE RIGHT SHOULDER WITHOUT CONTRAST 02/12/2020 2:25 pm TECHNIQUE: Multiplanar multisequence MRI of the right shoulder was performed without the administration of intravenous contrast. COMPARISON: None. HISTORY: ORDERING SYSTEM PROVIDED HISTORY: Acute pain of right shoulder 54-year-old male with acute right shoulder pain FINDINGS: ROTATOR CUFF: Evidence of prior rotator cuff repair. Subacromial-subdeltoid bursa is contiguous with the glenohumeral joint. Region of full-thickness tearing in the critical zone along mid and posterior supraspinatus. The tear gap measures 1.5 cm on image 6, series 6 and approximately 7 mm in greatest AP dimension. Jncyotkc-ff-xenzpd underlying supraspinatus tendinopathy and granulation tissue. Mkfk-jk-jxpmohab underlying infraspinatus tendinopathy. Mild subscapularis tendinopathy. Teres minor muscle/tendon appear grossly intact without evidence of tearing. Mild atrophy and fatty degeneration of subscapularis. BICEPS TENDON: Nonvisualization of the long head of biceps tendon in the bicipital groove or rotator interval. This is likely related to prior biceps tenodesis. LABRUM: Mild diffuse labral degeneration. Degenerative tearing along the superior labrum on image 8, series 6. No paralabral cyst formation. GLENOHUMERAL JOINT: Expg-at-kxpwcgxf glenohumeral chondromalacia. Small amount of fluid in the glenohumeral joint space without sizable effusion. Inferior glenohumeral ligament appears intact. AC JOINT AND ACROMIOCLAVICULAR ARCH: Mild degenerative change of the right AC joint. Type 2 acromion. BONE MARROW: Susceptibility artifact along the anterior humeral head with marrow edema surrounding the stress riser or suture anchor. Bone marrow signal intensity within the visualized osseous structures otherwise within normal limits. No acute fracture or dislocation involving the osseous components of the shoulder. OUTLET SPACES: Suprascapular notch and quadrilateral space grossly unremarkable in appearance. No right axillary lymphadenopathy. IMPRESSION: 1. Prior rotator cuff repair. Region of full-thickness tearing of the critical zone along mid and posterior supraspinatus measuring 7 mm in greatest AP dimension with tear gap measuring 1.5 cm. Xkbmrhsl-ys-fdpvcp underlying supraspinatus tendinopathy and granulation tissue. Bvsy-no-fqkvjkfw underlying infraspinatus tendinopathy. 2. Mild subscapularis tendinopathy. 3. Mild atrophy and fatty degeneration of subscapularis. 4. Mild diffuse labral degeneration. Degenerative tearing along the superior labrum. 5. Wlpq-mn-cbmatbij glenohumeral chondromalacia. 6. Mild degenerative change of the right AC joint. 7. Prior biceps tenodesis. 8. Susceptibility artifact and marrow edema surrounding a stress riser at the anterior humeral head. Interpreted by: Rodrigo Purcell MD Signed by: Rodrigo Purcell MD 02/12/20 Final result Normal [facility] 1. Prior rotator cuf f repair. Region of full-thickness tearing of the critical zone along mid and posterior supraspinatus measuring 7 mm in greatest AP dimension with tear gap measuring 1.5 cm. Ztcwfkma-gv-ibaffh underlying supraspinatus tendinopathy and granulation tissue. Aiis-vx-ohphpalu underlying infraspinatus tendinopathy. 2. Mild subscapularis tendinopathy. 3. Mild atrophy and fatty degeneration of subscapularis. 4. Mild diffuse labral degeneration. Degenerative tearing along the superior labrum. 5. Nwjs-of-icgpxrjz glenohumeral chondromalacia. 6. Mild degenerative change of the right AC joint. 7. Prior biceps tenodesis. 8. Susceptibility artifact and marrow edema surrounding a stress riser at the anterior humeral head. [place] EXAMINATION: MRI OF THE RIGHT SHOULDER WITHOUT CONTRAST 02/12/2020 2:25 pm TECHNIQUE: Multiplanar multisequence MRI of the right shoulder was performed without the administration of intravenous contrast. COMPARISON: None. HISTORY: ORDERING SYSTEM PROVIDED HISTORY: Acute pain of right shoulder 54-year-old male with acute right shoulder pain FINDINGS: ROTATOR CUFF: Evidence of prior rotator cuff repair. Subacromial-subdeltoid bursa is contiguous with the glenohumeral joint. Region of full-thickness tearing in the critical zone along mid and posterior supraspinatus. The tear gap measures 1.5 cm on image 6, series 6 and approximately 7 mm in greatest AP dimension. Jgiaoxmg-qp-lnljve underlying supraspinatus tendinopathy and granulation tissue. Dnyy-vf-hktxzhnm underlying infraspinatus tendinopathy. Mild subscapularis tendinopathy. Teres minor muscle/tendon appear grossly intact without evidence of tearing. Mild atrophy and fatty degeneration of subscapularis. BICEPS TENDON: Nonvisualization of the long head of biceps tendon in the bicipital groove or rotator interval. This is likely related to prior biceps tenodesis. LABRUM: Mild diffuse labral degeneration. Degenerative tearing along the superior labrum on image 8, series 6. No paralabral cyst formation. GLENOHUMERAL JOINT: Pelf-dd-jvvmcuqq glenohumeral chondromalacia. Small amount of fluid in the glenohumeral joint space without sizable effusion. Inferior glenohumeral ligament appears intact. AC JOINT AND ACROMIOCLAVICULAR ARCH: Mild degenerative change of the right AC joint. Type 2 acromion. BONE MARROW: Susceptibility artifact along the anterior humeral head with marrow edema surrounding the stress riser or suture anchor. Bone marrow signal intensity within the visualized osseous structures otherwise within normal limits. No acute fracture or dislocation involving the osseous components of the shoulder. OUTLET SPACES: Suprascapular notch and quadrilateral space grossly unremarkable in appearance. No right axillary lymphadenopathy. [facility]- [place], [place] Ezekiel, Mhpn Incoming R adiant Results From [employer] - 02/12/2020 3:46 PM EDT EXAMINATION: MRI OF THE RIGHT SHOULDER WITHOUT CONTRAST 02/12/2020 2:25 pm TECHNIQUE: Multiplanar multisequence MRI of the right shoulder was performed without the administration of intravenous contrast. COMPARISON: None. HISTORY: ORDERING SYSTEM PROVIDED HISTORY: Acute pain of right shoulder 54-year-old male with acute right shoulder pain FINDINGS: ROTATOR CUFF: Evidence of prior rotator cuff repair. Subacromial-subdeltoid bursa is contiguous with the glenohumeral joint. Region of full-thickness tearing in the critical zone along mid and posterior supraspinatus. The tear gap measures 1.5 cm on image 6, series 6 and approximately 7 mm in greatest AP dimension. Nyrwjneo-fq-cciwfx underlying supraspinatus tendinopathy and granulation tissue. Cfaq-im-awsdbvfn underlying infraspinatus tendinopathy. Mild subscapularis tendinopathy. Teres minor muscle/tendon appear grossly intact without evidence of tearing. Mild atrophy and fatty degeneration of subscapularis. BICEPS TENDON: Nonvisualization of the long head of biceps tendon in the bicipital groove or rotator interval. This is likely related to prior biceps tenodesis. LABRUM: Mild diffuse labral degeneration. Degenerative tearing along the superior labrum on image 8, series 6. No paralabral cyst formation. GLENOHUMERAL JOINT: Vyuy-vi-edmioqzf glenohumeral chondromalacia. Small amount of fluid in the glenohumeral joint space without sizable effusion. Inferior glenohumeral ligament appears intact. AC JOINT AND ACROMIOCLAVICULAR ARCH: Mild degenerative change of the right AC joint. Type 2 acromion. BONE MARROW: Susceptibility artifact along the anterior humeral head with marrow edema surrounding the stress riser or suture anchor. Bone marrow signal intensity within the visualized osseous structures otherwise within normal limits. No acute fracture or dislocation involving the osseous components of the shoulder. OUTLET SPACES: Suprascapular notch and quadrilateral space grossly unremarkable in appearance. No right axillary lymphadenopathy. IMPRESSION: 1. Prior rotator cuff repair. Region of full-thickness tearing of the critical zone along mid and posterior supraspinatus measuring 7 mm in greatest AP dimension with tear gap measuring 1.5 cm. Rvhaspro-vh-raacju underlying supraspinatus tendinopathy and granulation tissue. Skjv-tm-rctruwak underlying infraspinatus tendinopathy. 2. Mild subscapularis tendinopathy. 3. Mild atrophy and fatty degeneration of subscapularis. 4. Mild diffuse labral degeneration. Degenerative tearing along the superior labrum. 5. Ngkj-ev-qwhmxwvb glenohumeral chondromalacia. 6. Mild degenerative change of the right AC joint. 7. Prior biceps tenodesis. 8. Susceptibility artifact and marrow edema surrounding a stress riser at the anterior humeral head. [place], [place] Glucose, Whole Bloodon 12-27 Glucose [Mass/Vol] 113 mg/dL High 74 - 100 mg/dL [place], [place] Interpretation and review of laboratory results Abnormal [place], [place] BUNon 12-26-2019 Urea nitrogen [Mass/Vol] 16 mg/dL 6 - 20 mg/d L [place] BUN (Urea N)on 12-26-2019 Urea nitrogen [Mass/Vol] 16 mg/dL Normal 6-20 [facility] Comment on above: Performed By: #### H CT, BUN, CREG, GLU, LYTE #### [facility] [address] [place] [address] Coat Checker: Domingo Ryao MD Creatinine w/GFRon 0 (cont.) Normal [facility] Comment on above: Result Comment: Aver age GFR for 50-59 years old: 93 mL/min/1.73sq m Chronic Kidney Disease: <60 mL/min/1.73sq m Kidney failure: <15 mL/min/1.73sq m eGFR calculated using average adult body mass. Additional eGFR calculator available at: http://www.[employer]/multiple_crcl_2012.htm Performed By: #### H CT, BUN, CREG, GLU, LYTE #### [facility] [address] [place], [place] [id number] Coat Checker: Domingo Rayo MD Creatinine [Mass/Vol] 1.15 mg/dL Normal 0.70-1.20 [facility] Comment on above: Performed By: #### H CT, BUN, CREG, GLU, LYTE #### [address] [place] [address] Coat Checker: Domingo Rayo MD GFR, Amer >60 Normal >60 [facility] Comment on above: Performed By: #### H CT, BUN, CREG, GLU, LYTE #### [address] [place] [address] Coat Checker: Domingo Rayo MD GFR,non Amer >60 Normal >60 [facility] Comment on above: Performed By: #### H CT, BUN, CREG, GLU, LYTE #### [address] [place] [address] Coat Checker: Domingo Rayo MD Staging: Normal [facility] Comment on above: Result Comment: Stag e 1: Some kidney damage normal GFR Stage 2: Mild kidney damage GFR 60-89 Stage 3: Moderate kidney damage GFR 30-59 Stage 4: Severe kidney damage GFR 15-29 Stage 5: Severe kidney damage GFR <15 ESRD - chronic treatment by dialysis or transplant Performed By: #### H CT, BUN, CREG, GLU, LYTE #### [address] [place] [address] Coat Checker: Domingo Rayo MD Creatinine, Serumon 12-26-19 20 Creatinine [Mass/Vol] 1.15 mg/dL 0.7 - 1.2 mg/d L [place] GFR >60 >60 mL/[place] GFR Non- >60 >60 mL/min [place] Electrolyte Panelon 12-26-19 20 Anion gap [Moles/Vol] 17 mmol/L 9 - 17 mmol/L [facility] [place] Chloride [Moles/Vol] 95 mmol/L Low 98 - 107 mmol/L [place] CO2 [Moles/Vol] 24 mmol/L 20 - 31 mmol/L [place] Potassium [Moles/Vol] 3.7 mmol/L 3.7 - 5.3 mmol /L [place] Sodium [Moles/Vol] 136 mmol/L 135 - 144 mmol/L [place] Electrolyteson 12-26-2019 Anion gap [Moles/Vol] 17 mmol/L Normal 9-17 [facility] Comment on above: Performed By: #### H CT, BUN, CREG, GLU, LYTE #### [address] [place] [address] Coat Checker: Domingo Rayo MD Chloride [Moles/Vol] 95 mmol/L Low 98-107 [facility] Comment on above: Performed By: #### H CT, BUN, CREG, GLU, LYTE #### [facility] [address] [place] [address] [address] [place] [address] Coat Checker: Domingo Rayo MD CO2 [Moles/Vol] 24 mmol/L Normal 20-31 [facility] Comment on above: Performed By: #### H CT, BUN, CREG, GLU, LYTE #### [address] [place] [address] Coat Checker: Domingo Rayo MD Potassium [Moles/Vol] 3.7 mmol/L Normal 3.7-5.3 [facility] Comment on above: Performed By: #### H CT, BUN, CREG, GLU, LYTE #### [facility] [address] [place] [address] Coat Checker: Domingo Rayo MD Sodium [Moles/Vol] 136 mmol/L Normal 135-144 [facility] Comment on above: Performed By: #### H CT, BUN, CREG, GLU, LYTE #### [facility] [address] [place], [place] [id number] Coat Checker: Domingo Rayo MD Glucoseon 12-26-2019 Glucose [Mass/Vol] 107 mg/dL High 70-99 [facility] Comment on above: Performed By: #### H CT, BUN, CREG, GLU, LYTE #### [facility] [address] [place], [place] [id number] Coat Checker: Domingo Rayo MD Glucose, randomon 12-26-2019 Glucose [Mass/Vol] 107 mg/dL High 70 - 99 mg/dL [place], [place] Hematocriton 12-26-2019 Hematocrit (Bld) [Volume fraction] 47.4 % Normal 4 0.7-50.3 [facility] Comment on above: Performed By: #### H CT, BUN, CREG, GLU, LYTE #### [facility] [address] [place], [place] [id number] Coat Checker: Domingo Rayo MD Hematocrit (Bld) [Volume fraction] 47.4 % 4 0.7 - 50.3 % [place], [place] Metabolic Panelon 12-26-2019 GFR/1.73 sq M predicted demetria g non-blacks MDRD (S/P/Bld) [Vol rate/Area] [place], [place] Comment on above: Average GFR for 50-5 9 years old: 93 mL/min/1.73sq m Chronic Kidney Disease: <60 mL/min/1.73sq m Kidney failure: <15 mL/min/1.73sq m eGFR calculated using average adult body mass. Additional eGFR calculator available at: http://www.[employer].com/multiple_crcl_2012.htm Stage 1: Some kidney damage normal GFR Stage 2: Mild kidney damage GFR 60-89 Stage 3: Moderate kidney damage GFR 30-59 Stage 4: Severe kidney damage GFR 15-29 Stage 5: Severe kidney damage GFR <15 ESRD - chronic treatment by dialysis or transplant Otheron 12-26-2019 Interpretation and review of laboratory results Abnormal [place] COVID-19on 12-25-2019 SARS-CoV-2 Not Detected Not Detected [place], [place] Comment on above: The specimen is NEGATIVE for SARS-CoV-2, the novel coronavirus associated with COVID-19. A negative result does not rule out COVID-19. This test has been authorized by the FDA under an Emergency Use Authorization (EUA) for use by authorized laboratories. Fact sheet for Healthcare Providers: https://www.fda.gov/media/099244/download Fact sheet for Patients: https://www.fda.gov/media/138971/download METHODOLOGY: RT-PCR SARS-CoV-2, PCR [place], [place] SARS-CoV-2, Rapid [place], [place] Source .NASOPHARYNGEAL SWAB [place] [id number] 12-25-2019 SARS-CoV-2,Rapid Normal [facility] Comment on above: Performed By: #### C OVID #### [address] [id number] Coat Checker: Sam Jacobs MD [address] [place] [address] Coat Checker: Domingo Rayo MD SARS-CoV-2 [facility] Comment on above: Performed By: #### C OVID #### [address] [address] Coat Checker: Sam Jacobs MD [address] [place] [address] Coat Checker: Domingo Rayo MD SARS-CoV-2 Not Detected [facility] Comment on above: Result Comment: The specimen is NEGATIVE for SARS-CoV-2, the novel coronavirus associated with COVID-19. A negative result does not rule out COVID-19. This test has been authorized by the FDA under an Emergency Use Authorization (EUA) for use by authorized laboratories. Fact sheet for Healthcare Providers: https://www.fda.gov/media/236870/download Fact sheet for Patients: https://www.fda.gov/media/432210/download METHODOLOGY: RT-PCR Performed By: #### C OVID #### [employer] [address] [place] [address] Coat Checker: Sam Jacobs MD [facility] [address] [place] [address] [address] [address] Coat Checker: Domingo Rayo MD EKG 12 Leadon 12-24-2019 Atrial Rate 92 BPM [facility] [place] P [place] 52 degrees [facility] [place] P-R Interval 154 ms [facility] [place] [place] Q-T Interval 360 ms [facility] [place] QRS Duration 96 ms [facility] [place] [place] QTc Calculation (Bazett) 445 ms [facility] [place] R [place] 34 degrees [facility] [place] T [place] 46 degrees [facility] [place] Ventricular Rate 92 BPM [facility], [place] Normal sinus rhythm Normal ECG No previous ECGs available Confirmed by Federico Burks MD ([id number]) on 12/24/2019 4:59:35 PM [place], [place] E[place]iel, Mhpn Incoming E kg Results From [facility] [place] - 12/24/2019 4:59 PM EDT Normal sinus rhythm Normal ECG No previous ECGs available Confirmed by Federico Burks MD ([id number]) on 12/24/2019 4:59:35 PM [facility] [place] [id number] 12-24-2019 SARS-CoV-2 Source .NASOPHARYNGEAL SWAB Normal [facility] Comment on above: Performed By: #### C OVID #### [employer] [address] [place] [address] Coat Checker: Sam Jacobs MD [facility] [address] [place] [address] [address] [place] [address] Coat Checker: Domingo Rayo MD Laboratory - Chemistry and C hemistry - challengeon 12-20-2019 Bilirubin Ql (U) Negative Invalid Interpr etation Code Negative [facility] Urobilinogen (U) [Mass/Vol] normal Invalid Interpretation Code normal [facility] - Hematology and Cell countson 12-20-2019 Hemoglobin Ql (U) Negative Invalid Interp retation Code Negative [facility] - Urinalysison Leukocyte esterase Test strip Ql (U) Negative Invalid Interpretation Code Negative [facility] Nitrite Ql (U) Negative Invalid Interpre tation Code Negative [facility] Protein Ql (U) Negative Invalid Interpre tation Code Negative [facility] Metabolic Panelon 12-20-2019 Anion gap [Moles/Vol] 20 mmol/L Invalid Interpretation Code 10-20 [facility] Calcium [Mass/Vol] 9.10 mg/dL Invalid Inter pretation Code 8.5-10.8 [facility] Chloride [Moles/Vol] 97.0 mmol/L Invalid Interpretation Code 100-112 [facility] CO2 [Moles/Vol] 23.0 mmol/L Invalid Interpre tation Code 23-30 [facility] Creatinine [Mass/Vol] 1.0 mg/dL Invalid Interpretation Code 0.5-1.5 [facility] GFR/1.73 sq M predicted among non-blacks MDRD (S/P/Bld) [Vol rate/Area] 78 mL/min/{1.73_m 2} Invalid Interpretation Code [facility] Glucose [Mass/Vol] 90.0 mg/dL Invalid Inter pretation Code 80-117 [facility] HbA1c (Bld) [Mass fraction] 6.80 % Invalid Interpretation Code 4.3-6.3 [facility] Potassium [Moles/Vol] 4.10 mmol/L Invalid Interpretation Code 3.5-5.3 [facility] Sodium [Moles/Vol] 136.0 mmol/L Invalid Inter pretation Code 135-148 [facility] Urea nitrogen [Mass/Vol] 16.0 mg/dL Invalid Interpretation Code 7-25 [facility] Urea nitrogen/Creatinine [Mass ratio] 16 mg/mg Invalid Interpretation Code 6-20 [facility] Otheron 12-20-2019 Bilirubin Ql (U) Negative Negative [facility] Glucose Test strip (U) [Mass/Vol] 4+ Invalid Interpretation Code Negative [facility] Hemoglobin Ql (U) Negative [facility] Nitrite Ql (U) Negative Negative [facility] pH (U) 5 [pH] Invalid Interpre tation Code 5.0-9.0 [facility] Protein Ql (U) Negative Negative [facility] Urobilinogen Test strip (U) [Mass/Vol] normal normal [facility] 148 [facility] 148.0 mg/dL Invalid Interpre tation Code [facility] Urinalysison 12-20-2019 Clarity (U) clear Invalid Interpre tation Code Clear [facility] Color (U) yellow Invalid Interpre tation Code yellow [facility] Ketones Ql (U) 1+ Invalid Interpre tation Code Negative [facility] Leukocyte esterase Test strip Ql (U) Negative Negative [facility] Specific gravity (U) [Rel density] 1.010 Invalid Interpretation Code 1.003-1.030 [facility] 11-19-2019 Cholesterol [Mass/Vol] 153.0 mg/dL Invalid Interpretation Code 0-200 [facility] Cholesterol in HDL [Mass/Vol] 56.0 mg/dL Invalid Interpretation Code 36-100 [facility] Cholesterol in LDL [Mass/Vol] 80.0 mg/dL Invalid Interpretation Code 0-130 [facility] Triglyceride [Mass/Vol] 84.0 mg/dL Invalid Interpretation Code 30-150 [facility] Metabolic Panelon 11-19-2019 Albumin [Mass/Vol] 4.60 g/dL Invalid Inter pretation Code 3.7-4.5 [facility] ALP [Catalytic activity/Vol] 75.0 U/L Invalid Interpretation Code 31-155 [facility] ALT [Catalytic activity/Vol] 54.0 U/L Invalid Interpretation Code 0-50 [facility] Anion gap [Moles/Vol] 18 mmol/L Invalid Interpretation Code 10-20 [facility] AST [Catalytic activity/Vol] 37.0 U/L Invalid Interpretation Code 0-40 [facility] Bilirubin [Mass/Vol] 0.50 mg/dL Invalid Interpretation Code 0.0-1.0 [facility] Calcium [Mass/Vol] 9.40 mg/dL Invalid Inter pretation Code 8.5-10.8 [facility] Chloride [Moles/Vol] 99.0 mmol/L Invalid Interpretation Code 100-112 [facility] CO2 [Moles/Vol] 27.0 mmol/L Invalid Interpre tation Code 23-30 [facility] Creatinine [Mass/Vol] 1.0 mg/dL Invalid Interpretation Code 0.5-1.5 [facility] GFR/1.73 sq M predicted among non-blacks MDRD (S/P/Bld) [Vol rate/Area] 78 mL/min/{1.73_ m2} Invalid Interpretation Code [facility] Glucose [Mass/Vol] 120.0 mg/dL Invalid Inter pretation Code 80-117 [facility] HbA1c (Bld) [Mass fraction] 6.80 % Invalid Interpretation Code 4.3-6.3 [facility] Potassium [Moles/Vol] 4.0 mmol/L Invalid Interpretation Code 3.5-5.3 [facility] Protein [Mass/Vol] 7.80 g/dL Invalid Inter pretation Code 6.3-7.9 [facility] Sodium [Moles/Vol] 140.0 mmol/L Invalid Inter pretation Code 135-148 [facility] Urea nitrogen [Mass/Vol] 13.0 mg/dL Invalid Interpretation Code 7-25 [facility] Urea nitrogen/Creatinine [Mass ratio] 13 mg/mg Invalid Interpretation Code 6-20 [facility] Otheron 11-19-2019 Albumin (U) [Mass/Vol] 22.3 Invalid Interpretation Code <17.0 [facility] Albumin/Globulin [Mass ratio] 1.4 {ratio} Invalid Interpretation Code 1.0-2.4 [facility] Cholesterol in VLDL [Mass/Vol] 17.0 mg/dL Invalid Interpretation Code 0-39 [facility] Cholesterol.total/Ch olesterol in HDL [Mass ratio] 3 {ratio} Invalid Interpretation Code [facility] 148 [facility] 148.0 mg/dL Invalid Interpre tation Code [facility] 54.0 U/L 0-50 [facility] Urinalysison 11-19-2019 Albumin/Creatinine DL <= 20 mg/L (U) [Mass ratio] 29.8 mg/g Invalid Interpretation Code 0.0-30.0 [facility] Creatinine (U) [Mass/Vol] 74.90 mg/dL Invalid Interpretation Code Not Estab. mg/dL [facility] Metabolic Panelon 08-28-2019 Anion gap [Moles/Vol] 16 mmol/L Invalid Interpretation Code 10-20 [facility] Calcium [Mass/Vol] 9.70 mg/dL Invalid Inter pretation Code 8.5-10.8 [facility] Chloride [Moles/Vol] 100.0 mmol/L Invalid Interpretation Code 100-112 [facility] CO2 [Moles/Vol] 27.0 mmol/L Invalid Interpre tation Code 23-30 [facility] Creatinine [Mass/Vol] 1.10 mg/dL Invalid Interpretation Code 0.5-1.5 [facility] GFR/1.73 sq M predicted among non-blacks MDRD (S/P/Bld) [Vol rate/Area] 70 mL/min/{1.73_m 2} Invalid Interpretation Code [facility] Glucose [Mass/Vol] 137.0 mg/dL Invalid Inter pretation Code 80-117 [facility] Potassium [Moles/Vol] 4.0 mmol/L Invalid Interpretation Code 3.5-5.3 [facility] Sodium [Moles/Vol] 139.0 mmol/L Invalid Inter pretation Code 135-148 [facility] Urea nitrogen [Mass/Vol] 26.0 mg/dL Invalid Interpretation Code 7-25 [facility] Urea nitrogen/Creatinine [Mass ratio] 24 mg/mg Invalid Interpretation Code 6-20 [facility] Laboratory - Chemistry and C hemistry - challengeon 08-21-2019 Bilirubin Ql (U) Negative Invalid Interpr etation Code Negative [facility] Ketones Ql (U) Negative Invalid Interpre tation Code Negative [facility] Urobilinogen (U) [Mass/Vol] normal Invalid Interpretation Code normal [facility] - Urinalysison Nitrite Ql (U) Negative Invalid Interpretation Code Nega [facility]ive [facility] Metabolic Panelon 08-21-2019 Anion gap [Moles/Vol] 18 mmol/L Invalid Interpretation Code 10-20 [facility] Calcium [Mass/Vol] 9.70 mg/dL Invalid Inter pretation Code 8.5-10.8 [facility] Chloride [Moles/Vol] 97.0 mmol/L Invalid Interpretation Code 100-112 [facility] CO2 [Moles/Vol] 25.0 mmol/L Invalid Interpre tation Code 23-30 [facility] Creatinine [Mass/Vol] 2.30 mg/dL Invalid Interpretation Code 0.5-1.5 [facility] GFR/1.73 sq M predicted among non-blacks MDRD (S/P/Bld) [Vol rate/Area] 30 mL/min/{1.73_m 2} Invalid Interpretation Code [facility] Glucose [Mass/Vol] 231.0 mg/dL Invalid Inter pretation Code 80-117 [facility] HbA1c (Bld) [Mass fraction] 7.60 % Invalid Interpretation Code 4.3-6.3 [facility] Potassium [Moles/Vol] 4.50 mmol/L Invalid Interpretation Code 3.5-5.3 [facility] Sodium [Moles/Vol] 135.0 mmol/L Invalid Inter pretation Code 135-148 [facility] Urea nitrogen [Mass/Vol] 34.0 mg/dL Invalid Interpretation Code 7-25 [facility] Urea nitrogen/Creatinine [Mass ratio] 15 mg/mg Invalid Interpretation Code 6-20 [facility] Otheron 08-21-2019 Bilirubin Ql (U) Negative Negative [facility] Gamma glutamyl transferase [Catalytic activity/Vol] 72 U/L Invalid Interpretation Code 7-51 [facility] Glucose Test strip (U) [Mass/Vol] 4+ Invalid Interpretation Code Negative [facility] Hemoglobin Ql (U) Trace Invalid Interp retation Code Negative [facility] Nitrite Ql (U) Negative Negative [facility] pH (U) 5 [pH] Invalid Interpre tation Code 5.0-9.0 [facility] Protein Ql (U) 1+ Invalid Interpre tation Code Negative [facility] Urobilinogen Test strip (U) [Mass/Vol] normal normal [facility] [address] [place] [facility] 171.0 mg/dL Invalid Interpre tation Code [facility] Urinalysison 08-21-2019 Clarity (U) Clear Invalid Interpre tation Code Clear [facility] Color (U) yellow Invalid Interpre tation Code yellow [facility] Ketones Ql (U) Negative Negative [facility] Leukocyte esterase Test strip Ql (U) Trace Invalid Interpretation Code Negative [facility] Specific gravity (U) [Rel density] 1.015 Invalid Interpretation Code 1.003-1.030 [facility] 05-22-2019 Cholesterol [Mass/Vol] 164.0 mg/dL Invalid Interpretation Code 0-200 [facility] Cholesterol in HDL [Mass/Vol] 33.0 mg/dL Invalid Interpretation Code 36-100 [facility] Cholesterol in LDL [Mass/Vol] 89.0 mg/dL Invalid Interpretation Code 0-130 [facility] Triglyceride [Mass/Vol] 208.0 mg/dL Invalid Interpretation Code 30-150 [facility] Hematologyon 05-22-2019 Hematocrit (Bld) [Volume fraction] 44.80 % Invalid Interpretation Code 37.8-51.0 [facility] Hemoglobin (Bld) [Mass/Vol] 15.30 g/dL Invalid Interpretation Code 12.6-17.0 [facility] MCH (RBC) [Entitic mass] 31.40 pg Invalid Interpretation Code 25.7-33.8 [facility] MCV (RBC) [Entitic vol] 92.0 fL Invalid Interpretation Code 81.0-100.2 [facility] Platelets (Bld) [#/Vol] 316.0 10*3/uL Invalid Interpretation Code 150-400 [facility] RBC (Bld) [#/Vol] 4.870 10*6/uL Invalid Interp retation Code 4.34-5.61 [facility] WBC (Bld) [#/Vol] 8.50 10*3/uL Invalid Interp retation Code 3.9-10.3 [facility] Imm/Pathon 05-22-2019 Prostate specific Ag [Mass/Vol] 0.59 ng/mL Invalid Interpretation Code 0.00-4.00 [facility] Laboratory - Chemistry and C hemistry - challengeon 05-22-2019 Bilirubin Ql (U) Negative Invalid Interpr etation Code Negative [facility] Ketones Ql (U) Negative Invalid Interpre tation Code Negative [facility] Urobilinogen (U) [Mass/Vol] normal Invalid Interpretation Code normal [facility] Laboratory - Hematology and Cell countson 05-22-2019 Hemoglobin Ql (U) Negative Invalid Interp retation Code Negative [facility] Laboratory - Urinalysison Leukocyte esterase Test strip Ql (U) Negative Invalid Interpretation Code Negative [facility] Nitrite Ql (U) Negative Invalid Interpre tation Code Negative [facility] Protein Ql (U) Negative Invalid Interpre tation Code Negative [facility] Metabolic Panelon 05-22-2019 Albumin [Mass/Vol] 4.30 g/dL Invalid Inter pretation Code 3.7-4.5 [facility] ALP [Catalytic activity/Vol] 79.0 U/L Invalid Interpretation Code 31-155 [facility] ALT [Catalytic activity/Vol] 23.0 U/L Invalid Interpretation Code 0-50 [facility] Anion gap [Moles/Vol] 16 mmol/L Invalid Interpretation Code 10-20 [facility] AST [Catalytic activity/Vol] 15.0 U/L Invalid Interpretation Code 0-40 [facility] Bilirubin [Mass/Vol] 0.40 mg/dL Invalid Interpretation Code 0.0-1.0 [facility] Calcium [Mass/Vol] 9.60 mg/dL Invalid Inter pretation Code 8.5-10.8 [facility] Chloride [Moles/Vol] 97.0 mmol/L Invalid Interpretation Code 100-112 [facility] CO2 [Moles/Vol] 27.0 mmol/L Invalid Interpre tation Code 23-30 [facility] Creatinine [Mass/Vol] 1.10 mg/dL Invalid Interpretation Code 0.5-1.5 [facility] GFR/1.73 sq M predicted among non-blacks MDRD (S/P/Bld) [Vol rate/Area] 70 mL/min/{1.73_ m2} Invalid Interpretation Code [facility] Glucose [Mass/Vol] 101.0 mg/dL Invalid Inter pretation Code 80-117 [place] [facility] Potassium [Moles/Vol] 4.30 mmol/L Invalid Interpretation Code 3.5-5.3 [facility] [facility] Protein [Mass/Vol] 7.60 g/dL Invalid Inter pretation Code 6.3-7.9 [facility] Sodium [Moles/Vol] 136.0 mmol/L Invalid Inter pretation Code 135-148 [place] [facility] Urea nitrogen [Mass/Vol] 21.0 mg/dL Invalid Interpretation Code 7-25 [facility] Urea nitrogen/Creatinine [Mass ratio] 19 mg/mg Invalid Interpretation Code 6-20 [facility] Otheron 05-22-2019 Albumin/Globulin [Mass ratio] 1.3 {ratio} Invalid Interpretation Code 1.0-2.4 [facility] [facility] Bilirubin Ql (U) Negative Negative [facility] Cholesterol in VLDL [Mass/Vol] 42.0 mg/dL Invalid Interpretation Code 0-39 [place] [facility] Cholesterol.total/Julia sterol in HDL [Mass ratio] 5 {ratio} Invalid Interpretation Code [facility] Collection time (Andrei) [Date/time] 1:00 pm Invalid Interpretation Code [facility] Erythrocyte distribution width (RBC) [Ratio] 12.40 % Invalid Interpretation Code 11.5-15.5 [place] [facility] Glucose Test strip (U) [Mass/Vol] 4+ Invalid Interpretation Code Negative [place] [facility] Hemoglobin Ql (U) Negative Negative [facility] MCHC (RBC) [Mass/Vol] 34.20 g/dL Invalid Interpretation Code 32.0-36.0 [facility] Nitrite Ql (U) Negative Negative [facility] pH (U) 5 [pH] Invalid Interpretation Code 5.0-9.0 [facility] Platelet mean volume (Bld) [Entitic vol] 9.40 fL Invalid Interpretation Code 8.3-11.5 [facility] Protein Ql (U) Negative Negative [facility] Urobilinogen Test strip (U) [Mass/Vol] normal normal [facility] 23.0 U/L 0-50 [facility] Urinalysison 05-22-2019 Clarity (U) Clear Invalid Interpre tation Code Clear [facility] Color (U) yellow Invalid Interpre tation Code yellow [facility] Ketones Ql (U) Negative Negative [facility] Leukocyte esterase Test strip Ql (U) Negative Negative [facility] Specific gravity (U) [Rel density] 1.015 Invalid Interpretation Code 1.003-1.030 [facility] Laboratory - Chemistry and C hemistry - challengeon 04-09-2019 Bilirubin Ql (U) Negative Invalid Interpr etation Code Negative [facility] Urobilinogen (U) [Mass/Vol] normal Invalid Interpretation Code normal [facility] Laboratory - Hematology and Cell countson 04-09-2019 Hemoglobin Ql (U) Negative Invalid Interp retation Code Negative [facility] Laboratory - Urinalysison Leukocyte esterase Test strip Ql (U) Negative Invalid Interpretation Code Negative [facility] Nitrite Ql (U) Negative Invalid Interpre tation Code Negative [facility] Metabolic Panelon 04-09-2019 Albumin [Mass/Vol] 4.50 g/dL Invalid Inter pretation Code 3.7-4.5 [facility] ALP [Catalytic activity/Vol] 73.0 U/L Invalid Interpretation Code 31-155 [facility] ALT [Catalytic activity/Vol] 47.0 U/L Invalid Interpretation Code 0-50 [facility] Anion gap [Moles/Vol] 17 mmol/L Invalid Interpretation Code 10-20 [facility] AST [Catalytic activity/Vol] 41.0 U/L Invalid Interpretation Code 0-40 [facility] Bilirubin [Mass/Vol] 0.50 mg/dL Invalid Interpretation Code 0.0-1.0 [facility] Calcium [Mass/Vol] 9.30 mg/dL Invalid Inter pretation Code 8.5-10.8 [facility] Chloride [Moles/Vol] 97.0 mmol/L Invalid Interpretation Code 100-112 [facility] CO2 [Moles/Vol] 27.0 mmol/L Invalid Interpre tation Code 23-30 [facility] Creatinine [Mass/Vol] 0.90 mg/dL Invalid Interpretation Code 0.5-1.5 [facility] GFR/1.73 sq M predicted among non-blacks MDRD (S/P/Bld) [Vol rate/Area] 88 mL/min/{1.73_ m2} Invalid Interpretation Code [facility] Glucose [Mass/Vol] 186.0 mg/dL Invalid Inter pretation Code 80-117 [place] [facility] HbA1c (Bld) [Mass fraction] 7.70 % Invalid Interpretation Code 4.3-6.3 [place] [facility] Potassium [Moles/Vol] 4.0 mmol/L Invalid Interpretation Code 3.5-5.3 [facility] [facility] Protein [Mass/Vol] 7.60 g/dL Invalid Inter pretation Code 6.3-7.9 [facility] [facility] Sodium [Moles/Vol] 137.0 mmol/L Invalid Inter pretation Code 135-148 [place] [facility] Urea nitrogen [Mass/Vol] 16.0 mg/dL Invalid Interpretation Code 7-25 [place] [facility] Urea nitrogen/Creatinine [Mass ratio] 18 mg/mg Invalid Interpretation Code 6-20 [facility] [facility] Otheron 04-09-2019 Albumin (U) [Mass/Vol] 48.5 Invalid Interpretation Code <17.0 [place] [facility] Albumin/Globulin [Mass ratio] 1.5 {ratio} Invalid Interpretation Code 1.0-2.4 [place] [facility] Bilirubin Ql (U) Negative Negative [facility] Gamma glutamyl transferase [Catalytic activity/Vol] 52 U/L Invalid Interpretation Code 7-51 [place] [facility] Glucose Test strip (U) [Mass/Vol] 4+ Invalid Interpretation Code Negative [place] [facility] Hem[facility] Ql (U) Negative [facility] Nitrite Ql (U) Negative Negative [facility] pH (U) 6 [pH] Invalid Interpre tation Code 5.0-9.0 [facility] Protein Ql (U) 1+ Invalid Interpre tation Code Negative [facility] Urobilinogen Test strip (U) [Mass/Vol] normal normal [place] 174 [facility] 47.0 U/L 0-50 [facility] 174.0 mg/dL Invalid Interpre tation Code [facility] Urinalysison 04-09-2019 Albumin/Creatinine DL <= 20 mg/L (U) [Mass ratio] 70.7 mg/g Invalid Interpretation Code 0.0-30.0 [facility] Clarity (U) clear Invalid Interpretation Code Clear [facility] Color (U) yellow Invalid Interpretation Code yellow [facility] Creatinine (U) [Mass/Vol] 68.60 mg/dL Invalid Interpretation Code Not Estab. mg/dL [facility] Ketones Ql (U) 2+ Invalid Interpretation Code Negative [facility] Leukocyte esterase Test strip Ql (U) Negative Negative [facility] Specific gravity (U) [Rel density] 1.010 Invalid Interpretation Code 1.003-1.030 [facility] Laboratory - Chemistry and C hemistry - challengeon 12-08-2018 Bilirubin Ql (U) Negative Invalid Interpr etation Code Negative [facility] Urobilinogen (U) [Mass/Vol] normal Invalid Interpretation Code normal [place] [facility] Laboratory - Hematology and Cell countson 12-08-2018 Hemoglobin Ql (U) Negative Invalid Interp retation Code Negative [facility] Laboratory - Urinalysison Leukocyte esterase Test strip Ql (U) Negative Invalid Interpretation Code Negative [place] [facility] Nitrite Ql (U) Negative Invalid Interpre tation Code Negative [facility] Protein Ql (U) Negative Invalid Interpre tation Code Negative [place] [facility] Metabolic Panelon 12-08-2018 Glucose mass conc 255.0 mg/dL Invalid Interp retation Code 80-117 [place] [facility] Hemoglobin A1c/Hemoglobin.total mass fraction (Bld) 8.80 % Invalid Interpretation Code 4.3-6.3 [place] [facility] Otheron 12-08-2018 Bilirubin Ql (U) Negative Negative [facility] Glucose Test strip mass conc (U) 4+ Invalid Interpretation Code Negative [place] [facility] Hemoglobin Ql (U) Negative Negative [facility] Nitrite Ql (U) Negative Negative [place] [facility] pH (U) 6 [pH] Invalid Interpre tation Code 5.0-9.0 [place] [facility] Protein Ql (U) Negative Negative [facility] Urobilinogen Test strip mass conc (U) normal normal [facility] [address] [facility] 206.0 mg/dL Invalid Interpre tation Code [facility] Urinalysison 12-08-2018 Clarity Nom (U) Clear Invalid Interpre tation Code Clear [facility] Color Nom (U) yellow Invalid Interpre tation Code yellow [facility] Ketones Ql (U) 1+ Invalid Interpre tation Code Negative [facility] Leukocyte esterase Test strip Ql (U) Negative Negative [facility] Specific gravity Relative Density (U) 1.015 Invalid Interpretation Code 1.003-1.030 [facility] 08-23-2018 Cholesterol in HDL mass conc 35.0 mg/dL Invalid Interpretation Code 36-100 [facility] Cholesterol in LDL mass conc 90.0 mg/dL Invalid Interpretation Code 0-130 [facility] Cholesterol mass conc 204.0 mg/dL Invalid In terpretation Code 0-200 [facility] Triglyceride mass conc 396.0 mg/dL Invalid Interpretation Code 30-150 [facility] Hematologyon 08-23-2018 Hematocrit Volume Fraction (Bld) 44.0 % Invalid Interpretation Code 37.8-51.0 [facility] Hemoglobin mass conc (Bld) 15.20 g/dL Invalid Interpretation Code 12.6-17.0 [facility] MCH Entitic mass (RBC) 32.0 pg Invalid Interpretation Code 25.7-33.8 [facility] MCV Entitic volume (RBC) 92.60 fL Invalid Interpretation Code 81.0-100.2 [facility] Platelets #/vol (Bld) 244.0 10*3/uL Invalid Interpretation Code 150-400 [facility] RBC #/vol (Bld) 4.750 10*6/uL Invalid Interpretation Code 4.34-5.61 [facility] WBC #/vol (Bld) 6.80 10*3/uL Invalid Interpre tation Code 3.9-10.3 [facility] Imm/Pathon 08-23-2018 Prostate specific Ag mass conc 0.61 ng/mL Invalid Interpretation Code 0.00-4.00 [facility] Metabolic Panelon 08-23-2018 Albumin mass conc 4.50 g/dL Invalid Interp retation Code 3.7-4.5 [facility] ALP enzyme act/vol 75.0 U/L Invalid Inter pretation Code 31-155 [facility] ALT enzyme act/vol 66.0 U/L Invalid Inter pretation Code 0-50 [facility] Anion gap molar conc 20 mmol/L Invalid Interpretation Code 10-20 [facility] AST enzyme act/vol 39.0 U/L Invalid Inter pretation Code 0-40 [facility] Bilirubin mass conc 0.40 mg/dL Invalid Inte rpretation Code 0.0-1.0 [facility] Calcium mass conc 9.40 mg/dL Invalid Interp retation Code 8.5-10.8 [facility] Chloride molar conc 96 mmol/L Invalid Inte rpretation Code 100-112 [facility] CO2 molar conc 28 mmol/L Invalid Interpre tation Code 23-30 [facility] Creatinine mass conc 0.90 mg/dL Invalid Interpretation Code 0.5-1.5 [facility] GFR/1.73 sq M predicted among non-blacks MDRD vol rate/area (S/P/Bld) 88 mL/min/{1.73_ m2} Invalid Interpretation Code [facility] Glucose mass conc 328.0 mg/dL Invalid Interp retation Code 80-117 [facility] Hemoglobin A1c/Hemoglobin.tota l mass fraction (Bld) 10.50 % Invalid Interpretation Code 4.3-6.3 [facility] Potassium molar conc 4.1 mmol/L Invalid Interpretation Code 3.5-5.3 [facility] Protein mass conc 7.60 g/dL Invalid Interp retation Code 6.3-7.9 [facility] Sodium molar conc 140 mmol/L Invalid Interp retation Code 135-148 [facility] Urea nitrogen mass conc 13.0 mg/dL Invalid Interpretation Code 7-25 [facility] Urea nitrogen/Creatinine mass ratio 14 mg/mg Invalid Interpretation Code 6-20 [facility] No Panel Informationon 08-23 1175 Invalid Interpretation Code 243-911 [facility] Otheron 08-23-2018 Albumin mass conc (U) 64.2 Invalid Interpretation Code <17.0 [facility] Albumin/Globulin mass ratio 1.5 {ratio} Invalid Interpretation Code 1.0-2.4 [facility] Cholesterol in VLDL mass conc 79.0 mg/dL Invalid Interpretation Code 0-39 [facility] Cholesterol.total/Ch olesterol in HDL mass ratio 6 {ratio} Invalid Interpretation Code [facility] Cobalamin (Vitamin B12) mass conc 1175 pg/mL 243-911 [facility] Erythrocyte distribution width Ratio (RBC) 11.70 % Invalid Interpretation Code 11.5-15.5 [facility] MCHC mass conc (RBC) 34.50 g/dL Invalid Int erpretation Code 32.0-36.0 [facility] Platelet mean volume Entitic volume (Bld) 9.80 fL Invalid Interpretation Code 8.3-11.5 [facility] 255 [place] 18.9 Invalid Interpre tation Code >5.4 [facility] 255.0 mg/dL Invalid Interpre tation Code [facility] 66.0 U/L 0-50 [facility] Urinalysison 08-23-2018 Albumin/Creatinine DL <= 20 mg/L mass ratio (U) 334.4 mg/g Invalid Interpretation Code 0.0-30.0 [facility] Creatinine mass conc (U) 19.20 mg/dL Invalid Interpretation Code Not Estab. mg/dL [facility] Laboratory - Urinalysison Glucose Test strip (U) [Mass/Vol] Negative Invalid Interpretation Code negative [facility] Protein (U) [Mass/Vol] Negative Invalid Interpretation Code negative [facility] Metabolic Panelon 06-12-2018 Glucose mass conc 195.0 mg/dL Invalid Interp retation Code 80-117 [facility] Hemoglobin A1c/Hemoglobin.total mass fraction (Bld) 9.50 % Invalid Interpretation Code 4.3-6.3 [facility] Otheron 06-12-2018 Glucose Test strip mass conc (U) Negative negative [facility] [address] [facility] 226.0 mg/dL Invalid Interpre tation Code [facility] Urinalysison 06-12-2018 Protein mass conc (U) [facility] 02-22-2018 Cholesterol in HDL mass conc 30.0 mg/dL Invalid Interpretation Code 36-100 [facility] Cholesterol mass conc 263.0 mg/dL Invalid In terpretation Code 0-200 [facility] Triglyceride mass conc 797.0 mg/dL Invalid Interpretation Code 30-150 [facility] Metabolic Panelon 02-22-2018 Albumin mass conc 4.50 g/dL Invalid Interp retation Code 3.7-4.5 [facility] ALP enzyme act/vol 83.0 U/L Invalid Inter pretation Code 31-155 [facility] ALT enzyme act/vol 49.0 U/L Invalid Inter pretation Code 0-50 [facility] Anion gap molar conc 20 mmol/L Invalid Interpretation Code 10-20 [facility] AST enzyme act/vol 22.0 U/L Invalid Inter pretation Code 0-40 [facility] Bilirubin mass conc 0.70 mg/dL Invalid Inte rpretation Code 0.0-1.0 [facility] Calcium mass conc 9.70 mg/dL Invalid Interp retation Code 8.5-10.8 [facility] Chloride molar conc 93 mmol/L Invalid Inte rpretation Code 100-112 [facility] CO2 molar conc 27 mmol/L Invalid Interpre tation Code 23-30 [facility] Creatinine mass conc 0.90 mg/dL Invalid Interpretation Code 0.5-1.5 [facility] GFR/1.73 sq M predicted among non-blacks MDRD vol rate/area (S/P/Bld) 88 mL/min/{1.73_ m2} Invalid Interpretation Code [facility] Glucose mass conc 323.0 mg/dL Invalid Interp retation Code 80-117 [facility] Hemoglobin A1c/Hemoglobin.tota l mass fraction (Bld) 10.0 % Invalid Interpretation Code 4.3-6.3 [facility] Potassium molar conc 4.0 mmol/L Invalid Interpretation Code 3.5-5.3 [facility] Protein mass conc 7.70 g/dL Invalid Interp retation Code 6.3-7.9 [facility] Sodium molar conc 136 mmol/L Invalid Interp retation Code 135-148 [facility] Urea nitrogen mass conc 13.0 mg/dL Invalid Interpretation Code 7-25 [facility] Urea nitrogen/Creatinine mass ratio 14 mg/mg Invalid Interpretation Code 6-20 [facility] Otheron 02-22-2018 Albumin mass conc (U) 141.8 Invalid Interpretation Code <17.0 [facility] Albumin/Globulin mass ratio 1.4 {ratio} Invalid Interpretation Code 1.0-2.4 [facility] Cholesterol in VLDL mass conc 159.0 mg/dL Invalid Interpretation Code 0-39 [facility] Cholesterol.total/Ch olesterol in HDL mass ratio 9 {ratio} Invalid Interpretation Code [facility] 240 [place] 49.0 U/L 0-50 [facility] 240.0 mg/dL Invalid Interpre tation Code [facility] Urinalysison 02-22-2018 Albumin/Creatinine DL <= 20 mg/L mass ratio (U) 179.5 mg/g Invalid Interpretation Code 0.0-30.0 [facility] Creatinine mass conc (U) 79.0 mg/dL Invalid Interpretation Code Not Estab. mg/dL [facility] Laboratory - Chemistry and C hemistry - challengeon 11-25-2017 Bilirubin Ql (U) Negative Invalid Interpr etation Code Negative [facility] Ketones Ql (U) Negative Invalid Interpre tation Code Negative [facility] Urobilinogen (U) [Mass/Vol] normal Invalid Interpretation Code normal [facility] Laboratory - Hematology and Cell countson 11-25-2017 Hemoglobin Ql (U) Negative Invalid Interp retation Code Negative [facility] Laboratory - Urinalysison Leukocyte esterase Test strip Ql (U) Negative Invalid Interpretation Code Negative [facility] Nitrite Ql (U) Negative Invalid Interpre tation Code Negative [facility] Protein Ql (U) Negative Invalid Interpre tation Code Negative [facility] Metabolic Panelon 11-25-2017 Glucose mass conc 350.0 mg/dL Invalid Interp retation Code 80-117 [facility] Hemoglobin A1c/Hemoglobin.total mass fraction (Bld) 8.60 % Invalid Interpretation Code 4.3-6.3 [facility] Otheron 11-25-2017 Bilirubin Ql (U) Negative Negative [facility] Glucose Test strip mass conc (U) 4+ Invalid Interpretation Code Negative [facility]l (U) [facility] Nitrite Ql (U) Negative Negative [facility] pH (U) 5 [pH] Invalid Interpre tation Code 4.5-7.8 [facility] Protein Ql (U) Negative Negative [facility] Urobilinogen Test strip mass conc (U) normal [facility] 200.0 mg/dL Invalid Interpre tation Code [facility] Urinalysison 11-25-2017 Clarity Nom (U) Clear Invalid Interpre tation Code Clear [facility] Color Nom (U) yellow Invalid Interpre tation Code yellow [facility] Ketones Ql (U) Negative Negative [facility] Leukocyte esterase Test strip Ql (U) Negative Negative [facility] Specific gravity Relative Density (U) 1.010 Invalid Interpretation Code 1.003-1.029 [facility] 08-24-2017 Cholesterol in HDL mass conc 39.0 mg/dL Invalid Interpretation Code 36-100 [facility] Cholesterol in LDL mass conc 138.0 mg/dL Invalid Interpretation Code 0-130 [facility] Cholesterol mass conc 237.0 mg/dL Invalid In terpretation Code 0-200 [facility] Triglyceride mass conc 301.0 mg/dL Invalid Interpretation Code 30-150 [facility] Metabolic Panelon 08-24-2017 ALT enzyme act/vol 52.0 U/L Invalid Inter pretation Code 0-50 [facility] Anion gap molar conc 17 mmol/L Invalid Interpretation Code 10-20 [facility] AST enzyme act/vol 38.0 U/L Invalid Inter pretation Code 0-40 [facility] Calcium mass conc 9.50 mg/dL Invalid Interp retation Code 8.5-10.8 [facility] Chloride molar conc 98 mmol/L Invalid Inte rpretation Code 100-112 [facility] CO2 molar conc 29 mmol/L Invalid Interpre tation Code 23-30 [facility] Creatinine mass conc 0.90 mg/dL Invalid Interpretation Code 0.5-1.5 [facility] GFR/1.73 sq M predicted among non-blacks MDRD vol rate/area (S/P/Bld) 88 mL/min/{1.73_ m2} Invalid Interpretation Code [facility] Glucose mass conc 146.0 mg/dL Invalid Interp retation Code 80-117 [facility] Hemoglobin A1c/Hemoglobin.tota l mass fraction (Bld) 8.40 % Invalid Interpretation Code 4.3-6.3 [facility] Potassium molar conc 3.8 mmol/L Invalid Interpretation Code 3.5-5.3 [facility] Sodium molar conc 140 mmol/L Invalid Interp retation Code 135-148 [facility] Urea nitrogen mass conc 16.0 mg/dL Invalid Interpretation Code 7-25 [facility] Urea nitrogen/Creatinine mass ratio 18 mg/mg Invalid Interpretation Code 6-20 [facility] Otheron 08-24-2017 Albumin mass conc (U) 160.5 Invalid In terpretation Code <17.0 [facility] Cholesterol in VLDL mass conc 60.0 mg/dL Invalid Interpretation Code 0-39 [facility] Cholesterol.total/Cho lesterol in HDL mass ratio 6 {ratio} Invalid Interpretation Code [facility] 194 saambaa 194.0 mg/dL Invalid Interpre tation Code [facility] 52.0 U/L 0-50 [facility] Urinalysison 08-24-2017 Albumin/Creatinine DL <= 20 mg/L mass ratio (U) 105.5 mg/g Invalid Interpretation Code 0.0-30.0 [facility] Creatinine mass conc (U) 152.10 mg/dL Invalid Interpretation Code Not Estab. mg/dL [facility] Laboratory - Urinalysison Protein (U) [Mass/Vol] Negative Invalid Interpretation Code negative [facility] Metabolic Panelon 08-01-2017 Glucose mass conc 259.0 mg/dL Invalid Interp retation Code 80-117 [facility] Hemoglobin A1c/Hemoglobin.total mass fraction (Bld) 8.30 % Invalid Interpretation Code 4.3-6.3 [facility] Otheron 08-01-2017 Glucose Test strip mass conc (U) trace Invalid Interpretation Code negative [facility] pH (U) 6.0 [pH] Invalid Interpre tation Code 4.5-7.8 [facility] [address] [facility] 192.0 mg/dL Invalid Interpre tation Code [facility] Urinalysison 08-01-2017 Protein mass conc (U) Negative negative [employer] Laboratory - Chemistry and C hemistry - challengeon 03-29-2017 Bilirubin Ql (U) Negative Invalid Interpr etation Code Negative [facility] Ketones Ql (U) Negative Invalid Interpre tation Code Negative [facility] Urobilinogen (U) [Mass/Vol] normal Invalid Interpretation Code normal [facility] Laboratory - Hematology and Cell countson 03-29-2017 Hemoglobin Ql (U) Negative Invalid Interp retation Code Negative [facility] Laboratory - Urinalysison Leukocyte esterase Test strip Ql (U) Negative Invalid Interpretation Code Negative [facility] Nitrite Ql (U) Negative Invalid Interpre tation Code Negative [facility] Protein Ql (U) Negative Invalid Interpre tation Code Negative [facility] Metabolic Panelon 03-29-2017 Glucose mass conc 284.0 mg/dL Invalid Interp retation Code 80-117 [facility] Hemoglobin A1c/Hemoglobin.total mass fraction (Bld) 8.0 % Invalid Interpretation Code 4.3-6.3 [facility] Otheron 03-29-2017 Albumin mass conc (U) < 12.0 Invalid Interpretation Code < 17.0 ug/mL [facility] Bilirubin Ql (U) Negative Negative [facility] Glucose Test strip mass conc (U) 4+ Invalid Interpretation Code Negative [facility] Hemoglobin Ql (U) Negative Negative [facility] Nitrite Ql (U) Negative Negative [facility] pH (U) 6 [pH] Invalid Interpretation Code 4.5-7.8 [facility] Protein Ql (U) Negative Negative [facility] Urobilinogen Test strip mass conc (U) normal normal [facility] [address] [facility] 183.0 mg/dL Invalid Interpretation Code [facility] Urinalysison 03-29-2017 Clarity Nom (U) clear Invalid Interpretation Code Clear [facility] Color Nom (U) yellow Invalid Interpretation Code yellow [facility] Creatinine mass conc (U) 14.20 mg/dL Invalid Interpretation Code Not Estab. mg/dL [facility] Ketones Ql (U) Negative Negative [facility] Leukocyte esterase Test strip Ql (U) Negative Negative [facility] Specific gravity Relative Density (U) 1.015 Invalid Interpretation Code 1.003-1.029 [facility] Laboratory - Chemistry and C hemistry - challengeon 11-23-2016 Bilirubin Ql (U) Negative Invalid Interpr etation Code Negative [facility] Ketones Ql (U) Negative Invalid Interpre tation Code Negative [facility] Urobilinogen (U) [Mass/Vol] normal Invalid Interpretation Code normal [facility] Laboratory - Urinalysison Leukocyte esterase Test strip Ql (U) Negative Invalid Interpretation Code Negative [facility] Nitrite Ql (U) Negative Invalid Interpre tation Code Negative [facility] Metabolic Panelon 11-23-2016 Glucose mass conc 195.0 mg/dL Invalid Interp retation Code 80-117 [facility] Hemoglobin A1c/Hemoglobin.total mass fraction (Bld) 6.90 % Invalid Interpretation Code 4.3-6.3 [facility] Otheron 11-23-2016 Bilirubin Ql (U) Negative Negative [facility] Glucose Test strip mass conc (U) 4+ Invalid Interpretation Code Negative [facility] Hemoglobin Ql (U) Trace Invalid Interp retation Code Negative [facility] Nitrite Ql (U) Negative Negative [facility] pH (U) 6 [pH] Invalid Interpre tation Code 4.5-7.8 [facility] Protein Ql (U) 1+ Invalid Interpre tation Code Negative [facility] Urobilinogen Test strip mass conc (U) normal normal [facility] [address] [facility] 151.0 mg/dL Invalid Interpre tation Code [facility] Urinalysison 11-23-2016 Clarity Nom (U) clear Invalid Interpre tation Code Clear [facility] Color Nom (U) yellow Invalid Interpre tation Code yellow [facility] Ketones Ql (U) Negative Negative [facility] Leukocyte esterase Test strip Ql (U) Negative Negative [facility] Specific gravity Relative Density (U) 1.010 Invalid Interpretation Code 1.003-1.029 [facility] 09-21-2016 Cholesterol in HDL mass conc 32.0 mg/dL Invalid Interpretation Code 36-100 [facility] Cholesterol in LDL mass conc 80.0 mg/dL Invalid Interpretation Code 0-130 [facility] Cholesterol mass conc 180.0 mg/dL Invalid In terpretation Code 0-200 [facility] Triglyceride mass conc 340.0 mg/dL Invalid Interpretation Code 30-150 [facility] Metabolic Panelon 09-21-2016 ALT enzyme act/vol 48.0 U/L Invalid Inter pretation Code 0-50 [facility] Anion gap molar conc 20 mmol/L Invalid Interpretation Code 10-20 [facility] AST enzyme act/vol 22.0 U/L Invalid Inter pretation Code 0-40 [facility] Calcium mass conc 9.70 mg/dL Invalid Interp retation Code 8.5-10.8 [facility] Chloride molar conc 100 mmol/L Invalid Inte rpretation Code 100-112 [facility] CO2 molar conc 26 mmol/L Invalid Interpre tation Code 23-30 [facility] Creatinine mass conc 1.10 mg/dL Invalid Interpretation Code 0.5-1.5 [facility] GFR/1.73 sq M predicted among non-blacks MDRD vol rate/area (S/P/Bld) 70 mL/min/{1.73_ m2} Invalid Interpretation Code [facility] Glucose mass conc 158.0 mg/dL Invalid Interp retation Code 80-117 [facility] Hemoglobin A1c/Hemoglobin.tota l mass fraction (Bld) 7.10 % Invalid Interpretation Code 4.3-6.3 [facility] Potassium molar conc 4.1 mmol/L Invalid Interpretation Code 3.5-5.3 [facility] Sodium molar conc 142 mmol/L Invalid Interp retation Code 135-148 [facility] Urea nitrogen mass conc 18.0 mg/dL Invalid Interpretation Code 7-25 [place] [facility] Urea nitrogen/Creatinine mass ratio 16 mg/mg Invalid Interpretation Code 6-20 [facility] Otheron 09-21-2016 Cholesterol in VLDL mass conc 68.0 mg/dL Invalid Interpretation Code 0-39 [facility] Cholesterol.total/Cho lesterol in HDL mass ratio 6 {ratio} Invalid Interpretation Code [facility] [address] [facility] 48.0 U/L 0-50 [facility] 157.0 mg/dL Invalid Interpre tation Code [facility] Laboratory - Chemistry and C hemistry - challengeon 07-27-2016 Bilirubin Ql (U) Negative Invalid Interpr etation Code Negative [facility] Urobilinogen (U) [Mass/Vol] normal Invalid Interpretation Code normal [facility] Laboratory - Hematology and Cell countson 07-27-2016 Hemoglobin Ql (U) Negative Invalid Interp retation Code Negative [facility] Laboratory - Urinalysison Leukocyte esterase Test strip Ql (U) Negative Invalid Interpretation Code Negative [facility] Nitrite Ql (U) Negative Invalid Interpre tation Code Negative [facility] Protein Ql (U) Negative Invalid Interpre tation Code Negative [facility] Metabolic Panelon 07-27-2016 Anion gap molar conc 19 mmol/L Invalid Interpretation Code 10-20 [facility] Calcium mass conc 9.90 mg/dL Invalid Interp retation Code 8.5-10.8 [facility] Chloride molar conc 96 mmol/L Invalid Inte rpretation Code 100-112 [facility] CO2 molar conc 29 mmol/L Invalid Interpre tation Code 23-30 [facility] Creatinine mass conc 1.10 mg/dL Invalid Interpretation Code 0.5-1.5 [facility] GFR/1.73 sq M predicted among non-blacks MDRD vol rate/area (S/P/Bld) 70 mL/min/{1.73_m 2} Invalid Interpretation Code [facility] Glucose mass conc 166.0 mg/dL Invalid Interp retation Code 80-117 [facility] Hemoglobin A1c/Hemoglobin.tota l mass fraction (Bld) 7.50 % Invalid Interpretation Code 4.3-6.3 [facility] Potassium molar conc 3.9 mmol/L Invalid Interpretation Code 3.5-5.3 [facility] Sodium molar conc 140 mmol/L Invalid Interp retation Code 135-148 [facility] Urea nitrogen mass conc 14.0 mg/dL Invalid Interpretation Code 7-25 [facility] Urea nitrogen/Creatinine mass ratio 13 mg/mg Invalid Interpretation Code 6-20 [facility] Otheron 07-27-2016 Albumin mass conc (U) < 12.0 Invalid Interpretation Code < 17.0 ug/mL [facility] Bilirubin Ql (U) Negative Negative [facility] Glucose Test strip mass conc (U) 4+ Invalid Interpretation Code Negative [facility] Hemoglobin Ql (U) Negative Negative [facility] Nitrite Ql (U) Negative Negative [facility] pH (U) 5 [pH] Invalid Interpretation Code 4.5-7.8 [facility] Protein Ql (U) Negative Negative [facility] Urobilinogen Test strip mass conc (U) normal normal [facility] [address] [facility] [employer] 169.0 mg/dL Invalid Interpretation Code [facility] Thyroidon 07-27-2016 T4 mass conc 5.55 ug/dL Invalid Interpre tation Code 5.00-12.00 [facility] Thyrotropin Qn 2.71 m[IU]/L Invalid Interpre tation Code 0.50-4.00 [facility] Urinalysison 07-27-2016 Clarity Nom (U) clear Invalid Interpretation Code Clear [facility] Color Nom (U) yellow Invalid Interpretation Code yellow [facility] Creatinine mass conc (U) 85.80 mg/dL Invalid Interpretation Code Not Estab. mg/dL [facility] Ketones Ql (U) 1+ Invalid Interpretation Code Negative [facility] Leukocyte esterase Test strip Ql (U) Negative Negative [facility] Specific gravity Relative Density (U) 1.015 Invalid Interpretation Code 1.003-1.029 [facility] Laboratory - Chemistry and C hemistry - challengeon 03-04-2016 Bilirubin Ql (U) Negative Invalid Interpr etation Code Negative [facility] Ketones Ql (U) Negative Invalid Interpre tation Code Negative [facility] Urobilinogen (U) [Mass/Vol] normal Invalid Interpretation Code normal [facility] Laboratory - Hematology and Cell countson 03-04-2016 Hemoglobin Ql (U) Negative Invalid Interp retation Code Negative [facility] Laboratory - Urinalysison Leukocyte esterase Test strip Ql (U) Negative Invalid Interpretation Code Negative [facility] Nitrite Ql (U) Negative Invalid Interpre tation Code Negative [facility] Protein Ql (U) Negative Invalid Interpre tation Code Negative [facility] Metabolic Panelon 03-04-2016 Anion gap molar conc 16 mmol/L Invalid Interpretation Code 10-20 [facility] Calcium mass conc 10.30 mg/dL Invalid Interp retation Code 8.5-10.8 [facility] Chloride molar conc 99 mmol/L Invalid Inte rpretation Code 100-112 [facility] CO2 molar conc 30 mmol/L Invalid Interpre tation Code 23-30 [facility] Creatinine mass conc 1.0 mg/dL Invalid Interpretation Code 0.5-1.5 [facility] GFR/1.73 sq M predicted among non-blacks MDRD vol rate/area (S/P/Bld) 79 mL/min/{1.73_m 2} Invalid Interpretation Code [facility] Glucose mass conc 190.0 mg/dL Invalid Interp retation Code 80-117 [facility] Hemoglobin A1c/Hemoglobin.tota l mass fraction (Bld) 6.70 % Invalid Interpretation Code 4.3-6.3 [facility] Potassium molar conc 4.1 mmol/L Invalid Interpretation Code 3.5-5.3 [facility] Sodium molar conc 141 mmol/L Invalid Interp retation Code 135-148 [facility] Urea nitrogen mass conc 12.0 mg/dL Invalid Interpretation Code 25 [facility] Urea nitrogen/Creatinine mass ratio 12 mg/mg Invalid Interpretation Code 6-20 [facility] Otheron 03-04-2016 Bilirubin Ql (U) Negative [facility] Glucose Test strip mass conc (U) 4+ Invalid Interpretation Code Negative [facility] Hemoglobin Ql (U) Negative Negative [facility] [place] [facility] Nitrite Ql (U) Negative Negative [facility] pH (U) 6 [pH] Invalid Interpre tation Code 4.5-7.8 [facility] Protein Ql (U) Negative Negative [facility] Urobilinogen Test strip mass conc (U) normal normal [facility] [address] [place] [address] [employer] 146.0 mg/dL Invalid Interpre tation Code [facility] Urinalysison 03-04-2016 Clarity Nom (U) clear Invalid Interpre tation Code Clear [facility] Color Nom (U) yellow Invalid Interpre tation Code yellow [facility] Ketones Ql (U) Negative Negative [facility] Leukocyte esterase Test strip Ql (U) Negative Negative [place] [employer] Specific gravity Relative Density (U) 1.015 Invalid Interpretation Code 1.003-1.029 [facility] Laboratory - Chemistry and C hemistry - challengeon 11-26-2015 Bilirubin Ql (U) Negative Invalid Interpr etation Code Negative [facility] Urobilinogen (U) [Mass/Vol] normal Invalid Interpretation Code normal [facility] Laboratory - Hematology and Cell countson 11-26-2015 Hemoglobin Ql (U) Negative Invalid Interp retation Code Negative [facility] Laboratory - Urinalysison Leukocyte esterase Test strip Ql (U) Negative Invalid Interpretation Code Negative [facility] Nitrite Ql (U) Negative Invalid Interpre tation Code Negative [facility] Protein Ql (U) Negative Invalid Interpre tation Code Negative [facility] Metabolic Panelon 11-26-2015 Glucose mass conc 220.0 mg/dL Invalid Interp retation Code 80-117 [facility] Hemoglobin A1c/Hemoglobin.total mass fraction (Bld) 9.70 % Invalid Interpretation Code 4.3-6.3 [facility] Otheron 11-26-2015 Albumin mass conc (U) < 12.0 Invalid Interpretation Code < 4.0-17.0 [facility] Bilirubin Ql (U) Negative Negative [facility] Glucose Test strip mass conc (U) 4+ Invalid Interpretation Code Negative [facility] Hemoglobin Ql (U) Negative Negative [facility] Nitrite Ql (U) Negative Negative [facility] pH (U) 6 [pH] Invalid Interpre tation Code 4.5-7.8 [facility] Protein Ql (U) Negative Negative [facility] Urobilinogen Test strip mass conc (U) normal normal [facility] [address] [facility] 232.0 mg/dL Invalid Interpre tation Code [facility] Thyroidon 11-26-2015 T4 mass conc 5.77 ug/dL Invalid Interpre tation Code 5.00-12.00 [facility] Thyrotropin Qn 2.60 m[IU]/L Invalid Interpre tation Code 0.50-4.00 [facility] Urinalysison 11-26-2015 Clarity Nom (U) clear Invalid Interpretation Code Clear [facility] Color Nom (U) yellow Invalid Interpretation Code yellow [facility] Creatinine mass conc (U) 66.20 mg/dL Invalid Interpretation Code Not Estab. mg/dL [facility] Ketones Ql (U) 2+ Invalid Interpretation Code Negative [facility] Leukocyte esterase Test strip Ql (U) Negative Negative [facility] Specific gravity Relative Density (U) 1.010 Invalid Interpretation Code 1.003-1.029 [facility] Laboratory - Chemistry and C hemistry - challengeon 11-07-2015 Cortisol [Mass/Vol] ug/dL Invalid Inte rpretation Code 3.1-22.4 [facility] Otheron 11-07-2015 Cortisol mass conc ug/dL 3.1-22.4 [facility] Laboratory - Chemistry and C hemistry - challengeon 10-29-2015 Bilirubin Ql (U) Negative Invalid Interpr etation Code Negative [facility] Urobilinogen (U) [Mass/Vol] normal Invalid Interpretation Code normal [facility] Laboratory - Hematology and Cell countson 10-29-2015 Hemoglobin Ql (U) Negative Invalid Interp retation Code Negative [facility] Laboratory - Urinalysison Leukocyte esterase Test strip Ql (U) Negative Invalid Interpretation Code Negative [facility] Nitrite Ql (U) Negative Invalid Interpre tation Code Negative [facility] Protein Ql (U) Negative Invalid Interpre tation Code Negative [facility] Metabolic Panelon 10-29-2015 Anion gap molar conc 20 mmol/L Invalid Interpretation Code 10-20 [facility] Calcium mass conc 9.70 mg/dL Invalid Interp retation Code 8.5-10.8 [facility] Chloride molar conc 96 mmol/L Invalid Inte rpretation Code 100-112 [facility] CO2 molar conc 27 mmol/L Invalid Interpre tation Code 23-30 [facility] Creatinine mass conc 0.80 mg/dL Invalid Interpretation Code 0.5-1.5 [facility] GFR/1.73 sq M predicted among non-blacks MDRD vol rate/area (S/P/Bld) 102 mL/min/{1.73_m 2} Invalid Interpretation Code [facility] Glucose mass conc 286.0 mg/dL Invalid Interp retation Code 80-117 [facility] Hemoglobin A1c/Hemoglobin.tota l mass fraction (Bld) 12.60 % Invalid Interpretation Code 4.3-6.3 [facility] Potassium molar conc 3.6 mmol/L Invalid Interpretation Code 3.5-5.3 [facility] Sodium molar conc 139 mmol/L Invalid Interp retation Code 135-148 [facility] Urea nitrogen mass conc 11.0 mg/dL Invalid Interpretation Code 7-25 [facility] Urea nitrogen/Creatinine mass ratio 14 mg/mg Invalid Interpretation Code 6-20 [facility] Otheron 10-29-2015 Albumin mass conc (U) 25.9 Invalid In terpretation Code 0.0-17.0 [facility] Bilirubin Ql (U) Negative Negative [facility] Glucose Test strip mass conc (U) 4+ Invalid Interpretation Code Negative [facility] Hemoglobin Ql (U) Negative Negative [facility] Nitrite Ql (U) Negative Negative [facility] pH (U) 5 [pH] Invalid Interpre tation Code 4.5-7.8 [facility] Protein Ql (U) Negative Negative [facility] Urobilinogen Test strip mass conc (U) normal normal [facility] [address] [facility] 315.0 mg/dL Invalid Interpre tation Code [facility] Urinalysison 10-29-2015 Albumin/Creatinine DL <= 20 mg/L mass ratio (U) 14.7 mg/g Invalid Interpretation Code 0.0-30.0 [facility] Clarity Nom (U) clear Invalid Interpretation Code Clear [facility] Color Nom (U) yellow Invalid Interpretation Code yellow [facility] Creatinine mass conc (U) 175.60 mg/dL Invalid Interpretation Code Not Estab. mg/dL [facility] Ketones Ql (U) 3+ Invalid Interpretation Code Negative [facility] Leukocyte esterase Test strip Ql (U) Negative Negative [facility] Specific gravity Relative Density (U) 1.020 Invalid Interpretation Code 1.003-1.029 [facility] Laboratory - Chemistry and C hemistry - challengeon 10-03-2015 Bilirubin Ql (U) Negative Invalid Interpr etation Code Negative [facility] Urobilinogen (U) [Mass/Vol] normal Invalid Interpretation Code normal [facility] Laboratory - Hematology and Cell countson 10-03-2015 Hemoglobin Ql (U) Negative Invalid Interp retation Code Negative [facility] Laboratory - Urinalysison Leukocyte esterase Test strip Ql (U) Negative Invalid Interpretation Code Negative [facility] Nitrite Ql (U) Negative Invalid Interpre tation Code Negative [facility] Protein Ql (U) Negative Invalid Interpre tation Code Negative [facility] Metabolic Panelon 10-03-2015 Anion gap molar conc 24 mmol/L Invalid Interpretation Code 10-20 [facility] Calcium mass conc 9.30 mg/dL Invalid Interp retation Code 8.5-10.8 [facility] Chloride molar conc 93 mmol/L Invalid Inte rpretation Code 100-112 [facility] CO2 molar conc 23 mmol/L Invalid Interpre tation Code 23-30 [facility] Creatinine mass conc 0.90 mg/dL Invalid Interpretation Code 0.5-1.5 [facility] GFR/1.73 sq M predicted among non-blacks MDRD vol rate/area (S/P/Bld) 89 mL/min/{1.73_m 2} Invalid Interpretation Code [facility] Glucose mass conc 491.0 mg/dL Invalid Interp retation Code 80-117 [facility] Potassium molar conc 4.0 mmol/L Invalid Interpretation Code 3.5-5.3 [facility] Sodium molar conc 136 mmol/L Invalid Interp retation Code 135-148 [facility] Urea nitrogen mass conc 13.0 mg/dL Invalid Interpretation Code 7-25 [facility] Urea nitrogen/Creatinine mass ratio 14 mg/mg Invalid Interpretation Code 6-20 [facility] Otheron 10-03-2015 Bilirubin Ql (U) Negative Negative [facility] C peptide mass conc 5.0 Invalid Inte rpretation Code 1.1-4.4 [facility] Cortisol mass conc 4.0 ug/dL Invalid Inter pretation Code 3.1-22.4 [facility] Glucose Test strip mass conc (U) 4+ Invalid Interpretation Code Negative [facility]l (U) [facility] Nitrite Ql (U) Negative Negative [facility] pH (U) 5 [pH] Invalid Interpre tation Code 4.5-7.8 [facility] Protein Ql (U) Negative Negative [facility] Urobilinogen Test strip mass conc (U) normal normal [facility] See Above Invalid Interpre tation Code 0-0 [facility] Urinalysison 10-03-2015 Clarity Nom (U) clear Invalid Interpre tation Code Clear [facility] Color Nom (U) yellow Invalid Interpre tation Code yellow [facility] Ketones Ql (U) 1+ Invalid Interpre tation Code Negative [facility] Leukocyte esterase Test strip Ql (U) Negative Negative [facility] [facility] Specific gravity Relative Density (U) 1.005 Invalid Interpretation Code 1.003-1.029 [facility] Hematologyon 08-26-2015 Basophils #/vol (Bld) 0.10 10*3/uL Invalid Interpretation Code 0.0-0.1 [facility] Basophils/100 WBC (Bld) 0.70 % Invalid Interpretation Code 0.0-1.0 [facility] Eosinophils #/vol (Bld) 0.30 10*3/uL Invalid Interpretation Code 0.0-0.5 [facility] Eosinophils/100 WBC (Bld) 3.10 % Invalid Interpretation Code 0.0-7.0 [facility] ESR Velocity (Bld) 31 mm/h Invalid Inter pretation Code 0-15 [facility] Hematocrit Volume Fraction (Bld) 39.50 % Invalid Interpretation Code 37.8-51.0 [facility] Hemoglobin mass conc (Bld) 13.10 g/dL Invalid Interpretation Code 12.6-17.0 [facility] Lymphocytes #/vol (Bld) 2.10 10*3/uL Invalid Interpretation Code 0.9-3.1 [facility] Lymphocytes/100 WBC (Bld) 21.80 % Invalid Interpretation Code 15.0-46.0 [facility] MCH Entitic mass (RBC) 31.50 pg Invalid Interpretation Code 25.7-33.8 [facility] MCV Entitic volume (RBC) 94.60 fL Invalid Interpretation Code 82.0-98.4 [facility] Monocytes #/vol (Bld) 0.70 10*3/uL Invalid Interpretation Code 0.3-1.0 [facility] Monocytes/100 WBC (Bld) 7.20 % Invalid Interpretation Code 4.0-12.0 [facility] Neutrophils #/vol (Bld) 6.20 10*3/uL Invalid Interpretation Code 1.8-7.9 [facility] Neutrophils/100 WBC (Bld) 67.20 % Invalid Interpretation Code 43.0-76.0 [facility] Platelets #/vol (Bld) 228.0 10*3/uL Invalid Interpretation Code 150-400 [facility] RBC #/vol (Bld) 4.180 10*6/uL Invalid Interpre tation Code 4.34-5.61 [facility] WBC #/vol (Bld) 9.40 10*3/uL Invalid Interpre tation Code 3.9-10.3 [facility] Metabolic Panelon 08-26-2015 Protein mass conc g/dL CLASS [address] [facility] Thing[facility] Otheron 08-26-2015 Erythrocyte distribution width Ratio (RBC) 12.20 % Invalid Interpretation Code 11.5-15.5 [facility] Immune complex IgE Qn 14 Invalid In terpretation Code 0-100 [facility] MCHC mass conc (RBC) 33.30 g/dL Invalid Int erpretation Code 32.0-36.0 [facility] Platelet mean volume Entitic volume (Bld) 8.50 fL Invalid Interpretation Code 7.4-10.4 [facility] <0.10 Invalid Interpre tation Code CLASS 0 [facility] COMMENT Invalid Interpre tation Code [facility] Cardiacon 08-05-2015 Cholesterol in HDL mass conc 60.0 mg/dL Invalid Interpretation Code 36-100 [facility] Cholesterol in LDL mass conc 58.0 mg/dL Invalid Interpretation Code 0-130 [facility] Cholesterol mass conc 150.0 mg/dL Invalid In terpretation Code 0-200 [facility] Triglyceride mass conc 160.0 mg/dL Invalid Interpretation Code 30-150 [facility] Metabolic Panelon 08-05-2015 ALT enzyme act/vol 64.0 U/L Invalid Inter pretation Code 0-50 [facility] Anion gap molar conc 18 mmol/L Invalid Interpretation Code 10-20 [facility] AST enzyme act/vol 39.0 U/L Invalid Inter pretation Code 0-40 [facility] Calcium mass conc 9.70 mg/dL Invalid Interp retation Code 8.5-10.8 [facility] Chloride molar conc 92 mmol/L Invalid Inte rpretation Code 100-112 [facility] CO2 molar conc 26 mmol/L Invalid Interpre tation Code 23-30 [facility] Creatinine mass conc 1.70 mg/dL Invalid Interpretation Code 0.5-1.5 [facility] GFR/1.73 sq M predicted among non-blacks MDRD vol rate/area (S/P/Bld) 43 mL/min/{1.73_ m2} Invalid Interpretation Code [facility] Glucose mass conc 199.0 mg/dL Invalid Interp retation Code 80-117 [facility] Hemoglobin A1c/Hemoglobin.tota l mass fraction (Bld) 8.90 % Invalid Interpretation Code 4.3-6.3 [facility] Potassium molar conc 4.3 mmol/L Invalid Interpretation Code 3.5-5.3 [facility] Sodium molar conc 132 mmol/L Invalid Interp retation Code 135-148 [facility] Urea nitrogen mass conc 24.0 mg/dL Invalid Interpretation Code 7-25 [facility] Urea nitrogen/Creatinine mass ratio 14 mg/mg Invalid Interpretation Code 6-20 [facility] Otheron 08-05-2015 Albumin mass conc (U) < 12.0 Invalid Interpretation Code < 4.0-17.0 [facility] Cholesterol in VLDL mass conc 32.0 mg/dL Invalid Interpretation Code 0-39 [facility] Cholesterol.total/C holesterol in HDL mass ratio 3 {ratio} Invalid Interpretation Code [facility] 209 [facility] 209.0 mg/dL Invalid Interpre tation Code [facility] 64.0 U/L 0-[facility] Urinalysis[facility] 08-05-2015 Creatinine mass conc (U) 186.0 mg/dL Invalid Interpretation Code Not Estab. mg/dL [facility] Vital Signs Date Time Vital Sign Value Performing Clinician Facility 07-27-2022 16:23-0500 Body height 180.34 cm Edilberto Zamora [facility] 07-27-2022 16:23-0500 Body mass index (BMI) [Ratio] 33.33 kg/m2 Edilberto Chu Shu 07-27-2022 16:23-0500 Body surface area Derived from formula 2.33 m2 Edilberto Chu Shu 07-27-2022 16:23-0500 Body weight 108.41 kg Edilberto Chu Shu 07-27-2022 16:23-0500 Body weight 0.1 {percentile} Edilberto Chu Shu 07-27-2022 16:23-0500 Diastolic blood pressure 68 mm[Hg] Edilberto Chu Shu 07-27-2022 16:23-0500 Heart rate 100 /min Edilberto Chu Shu 07-27-2022 16:23-0500 Systolic blood pressure 110 mm[Hg] Edilberto Chu Shu 05-27-2022 14:45-0500 Body height 182.88 cm [facility] 05-27-2022 14:45-0500 Body mass index (BMI) [Ratio] 24.4 kg/m2 [facility] 05-27-2022 14:45-0500 Body weight 81.64 kg [facility] 05-27-2022 14:39-0500 Body temperature 97.7 [degF] [facility] 05-27-2022 14:39-0500 Diastolic blood pressure 78 mm[Hg] [facility] 05-27-2022 14:39-0500 Heart rate 90 /min [facility] 05-27-2022 14:39-0500 Respiratory rate 20 /min [facility] 05-27-2022 14:39-0500 Systolic blood pressure 153 mm[Hg] [facility] 05-05-2022 14:50-0400 Body height 182.88 cm [facility] 05-05-2022 14:50-0400 Body mass index (BMI) [Ratio] 24.4 kg/m2 [facility] 05-05-2022 14:50-0400 Body weight 81.64 kg [facility] 05-05-2022 14:36-0400 Body temperature 97.9 [degF] [facility] 05-05-2022 14:36-0400 Diastolic blood pressure 82 mm[Hg] [facility] 05-05-2022 14:36-0400 Heart rate 106 /min [facility] 05-05-2022 14:36-0400 Respiratory rate 18 /min [facility] 05-05-2022 14:36-0400 Systolic blood pressure 153 mm[Hg] [facility] 04-14-2022 14:46-0400 Body height 182.88 cm [facility] 04-14-2022 14:46-0400 Body mass index (BMI) [Ratio] 24.4 kg/m2 [facility] 04-14-2022 14:46-0400 Body weight 81.64 kg [facility] 04-14-2022 14:14-0400 Body temperature 98.6 [degF] [facility] 04-14-2022 14:14-0400 Diastolic blood pressure 98 mm[Hg] [facility] 04-14-2022 14:14-0400 Heart rate 112 /min [facility] 04-14-2022 14:14-0400 Respiratory rate 18 /min [facility] 04-14-2022 14:14-0400 Systolic blood pressure 168 mm[Hg] [facility] 04-01-2022 18:08-0400 Body height 182.88 cm [facility] 04-01-2022 18:08-0400 Body temperature 98.5 [degF] [facility] 04-01-2022 18:08-0400 Body weight 108.6 kg [facility] 04-01-2022 18:08-0400 Diastolic blood pressure 89 mm[Hg] [facility] 04-01-2022 18:08-0400 Heart rate 112 /min [facility] 04-01-2022 18:08-0400 Respiratory rate 20 /min [facility] 04-01-2022 18:08-0400 SaO2% (BldA) [Mass fraction] 97 % [facility] 04-01-2022 18:08-0400 Systolic blood pressure 143 mm[Hg] [facility] 02-17-2022 15:25-0400 Body height 180.34 cm [facility] [facility] 02-17-2022 15:25-0400 Body mass index (BMI) [Ratio] 33.75 kg/m2 [facility] 02-17-2022 15:25-0400 Body surface area Derived from formula 2.35 m2 [facility] 02-17-2022 15:25-0400 Body surface area Derived from formula 2.34 m2 [facility] [employer] [facility] 02-17-2022 15:25-0400 Body weight 109.77 kg [facility] 02-17-2022 15:25-0400 Diastolic blood pressure 72 mm[Hg] Franky [facility] 02-17-2022 15:25-0400 Heart rate 84 /min Franky Turpin [facility] 02-17-2022 15:25-0400 Systolic blood pressure 126 mm[Hg] Franky Turpin [facility] [employer] [facility] 02-17-2022 14:30-0400 Body height 180.34 cm Ericka [employer] [facility] 02-17-2022 14:30-0400 Body mass index (BMI) [Ratio] 33.75 kg/m2 Ericka [employer] [facility] 02-17-2022 14:30-0400 Body surface area Derived from formula 2.35 m2 Ericka [employer] [facility] 02-17-2022 14:30-0400 Body surface area Derived from formula 2.34 m2 Ericka [employer] [facility] 02-17-2022 14:30-0400 Body weight 109.77 kg Ericka [employer] [facility] 02-17-2022 14:30-0400 Diastolic blood pressure 76 mm[Hg] Ericka [employer] [facility] 02-17-2022 14:30-0400 Heart rate 88 /min Ericka [employer] [facility] 02-17-2022 14:30-0400 Systolic blood pressure 124 mm[Hg] Ericka [employer] [facility] 01-15-2022 13:42-0400 Body height 180.34 cm Edilberto Chu Shu 01-15-2022 13:42-0400 Body mass index (BMI) [Ratio] 33.47 kg/m2 Edilberto Chu Shu 01-15-2022 13:42-0400 Body surface area Derived from formula 2.34 m2 Edilberto Chu Shu 01-15-2022 13:42-0400 Body weight 108.86 kg Edilberto JaraSegundoHogar 01-15-2022 13:42-0400 Diastolic blood pressure 82 mm[Hg] Edilberto Chu Shu 01-15-2022 13:42-0400 Heart rate 84 /min Edilberto JaraSegundoHogar 01-15-2022 13:42-0400 Systolic blood pressure 132 mm[Hg] Edilberto Chu Shu 10-20-2021 16:47-0400 Body height 180.34 cm Franky [employer] 10-20-2021 16:47-0400 Body mass index (BMI) [Ratio] 34.03 kg/m2 Franky [employer] 10-20-2021 16:47-0400 Body surface area Derived from formula 2.35 m2 Franky [employer] 10-20-2021 16:47-0400 Body weight 110.68 kg Franky [employer] 10-20-2021 16:47-0400 Diastolic blood pressure 78 mm[Hg] [facility]y [employer] 10-20-2021 16:47-0400 Heart rate 88 /min Franky [employer] 10-20-2021 16:47-0400 Systolic blood pressure 122 mm[Hg] Franky [employer] 09-17-2021 16:22-0500 Body height 180.34 cm [employer] 09-17-2021 16:22-0500 Body mass index (BMI) [Ratio] 34.17 kg/m2 Franky [employer] 09-17-2021 16:22-0500 Body surface area Derived from formula 2.36 m2 Franky [employer] 09-17-2021 16:22-0500 Body weight 111.13 kg Franky [facility] 09-17-2021 16:22-0500 Diastolic blood pressure 78 mm[Hg] Franky [employer]nc[employer] 09-17-2021 16:22-0500 Heart rate 84 /min Franky [employer] 09-17-2021 16:22-0500 Systolic blood pressure 142 mm[Hg] Franky [employer] 09-03-2021 14:40-0500 Body height 180.34 cm Edilberto Lagi[employer] 09-03-2021 14:40-0500 Body mass index (BMI) [Ratio] 35.15 kg/m2 Edilberto Chu Shu 09-03-2021 14:40-0500 Body surface area Derived from formula 2.39 m2 Edilberto Chu Shu 09-03-2021 14:40-0500 Body weight 114.31 kg Edilberto Chu Shu 09-03-2021 14:40-0500 Diastolic blood pressure 74 mm[Hg] Edilberto Chu Shu 09-03-2021 14:40-0500 Heart rate 84 /min Edilberto ZamoraAutifony [employer] [facility] 09-03-2021 14:40-0500 Systolic blood pressure 136 mm[Hg] Edilberto JaraAutifony [employer] [facility] 03-19-2021 14:33-0400 Body height 181.61 cm Edilberto [employer] [facility] 03-19-2021 14:33-0400 Body mass index (BMI) [Ratio] 33.49 kg/m2 Edilberto Chu Shu 03-19-2021 14:33-0400 Body surface area Derived from formula 2.36 m2 Edilberto [employer] [facility] 03-19-2021 14:33-0400 Body weight 110.45 kg Edilberto Chu Shu 03-19-2021 14:33-0400 Diastolic blood pressure 80 mm[Hg] Edilberto Chu Shu 03-19-2021 14:33-0400 Heart rate 88 /min Edilberto Chu Shu 03-19-2021 14:33-0400 Systolic blood pressure 126 mm[Hg] Edilberto Chu Shu 12-23-2020 13:35-0400 Body height 181.61 cm Ericka [employer] [facility] 12-23-2020 13:35-0400 Body mass index (BMI) [Ratio] 33.01 kg/m2 Ericka [employer] 12-23-2020 13:35-0400 Body surface area Derived from formula 2.34 m2 Ericka [employer] 12-23-2020 13:35-0400 Body weight 108.86 kg Ericka [employer] [facility] 12-23-2020 13:35-0400 Diastolic blood pressure 86 mm[Hg] Ericka Muniz [facility] 12-23-2020 13:35-0400 Heart rate 83 /min Ericka Muniz [facility] 12-23-2020 13:35-0400 Systolic blood pressure 126 mm[Hg] Ericka Muniz [employer] [facility] 09-09-2020 15:15-0500 BMI (Body Mass Index) 33.56 kg/m2 Edilberto Chu Shu 09-09-2020 15:15-0500 Body weight 110.68 kg Edilberto Chu Shu 09-09-2020 15:15-0500 BP Diastolic 74 mm[Hg] Edilberto Chu Shu 09-09-2020 15:15-0500 BP Systolic 130 mm[Hg] Edilberto Chu Shu 09-09-2020 15:15-0500 BSA (Body Surface Area) 2.36 m2 Edilberto Chu Shu 09-09-2020 15:15-0500 Height 181.61 cm Edilberto Chu Shu 09-09-2020 15:15-0500 Pulse (Heart Rate) 104 /min Edilberto [employer] [facility] 04-08-2020 17:01-0400 BMI (Body Mass Index) 33.46 kg/m2 Edilberto Chu Shu 04-08-2020 17:01-0400 Body weight 110.37 kg Edilberto Chu Shu 04-08-2020 17:01-0400 BP Diastolic 78 mm[Hg] Edilberto Zamora [facility] 04-08-2020 17:01-0400 BP Systolic 120 mm[Hg] Edilberto Zamora [facility] 04-08-2020 17:01-0400 BSA (Body Surface Area) 2.36 m2 Edilberto Zamora [facility] 04-08-2020 17:01-0400 Height 181.61 cm Edilberto Chu Shu 04-08-2020 17:01-0400 Pulse (Heart Rate) 78 /min Edilberto Zamorabrian [employer] 02-21-2020 17:34-0400 BMI (Body Mass Index) 33.83 kg/m2 Ericka [employer] 02-21-2020 17:34-0400 Body Temperature 97.8 [degF] [facility] 02-21-2020 17:34-0400 Body weight 111.59 kg Ericka [employer] 02-21-2020 17:34-0400 BP Diastolic 70 mm[Hg] Ericka [employer] 02-21-2020 17:34-0400 BP Systolic 132 mm[Hg] Ericka [employer] 02-21-2020 17:34-0400 BSA (Body Surface Area) 2.37 m2 Ericka [employer] 02-21-2020 17:34-0400 Height 181.61 cm Ericka [employer] 02-21-2020 17:34-0400 Pulse (Heart Rate) 88 /min Ericka [employer] 12-28-2019 14:30-0400 Body Temperature 98.6 [degF] [facility] [place] 12-28-2019 14:30-0400 BP Diastolic 88 mm[Hg] [facility] , [place] 12-28-2019 14:30-0400 BP Systolic 135 mm[Hg] [facility] [place] 12-28-2019 14:30-0400 Pulse (Heart Rate) 80 /min [facility] [place] 12-28-2019 14:30-0400 Pulse Oximetry 93 % [facility] [place] 12-28-2019 14:30-0400 Respiratory Rate 18 /min [facility] 12-28-2019 08:19-0400 BMI (Body Mass Index) 33.63 kg/m2 [facility] [place] 12-28-2019 08:19-0400 Body weight 112.[address] [facility] [place] 12-28-2019 08:19-[address] [facility] [place] 11-26-2019 17:01-0400 BMI (Body Mass Index) 34.24 kg/m2 Ericka [employer] [facility] 11-26-2019 17:01-0400 Body Temperature 98.5 [degF] Ericka [facility] [facility] [employer] [facility] 11-26-2019 17:01-0400 Body weight 112.95 kg Ericka [employer] [facility] 11-26-2019 17:01-0400 BP Diastolic 72 mm[Hg] Ericka [employer] 11-26-2019 17:01-0400 BP Systolic 116 mm[Hg] Ericka [employer] [facility] 11-26-2019 17:01-0400 BSA (Body Surface Area) 2.39 m2 Ericka [employer] [facility] 11-26-2019 17:01-0400 Height 181.61 cm Ericka [employer] 11-26-2019 17:01-0400 Pulse (Heart Rate) 100 /min Ericka Tijerina [employer] 08-28-2019 15:09-0500 BMI (Body Mass Index) 33.83 kg/m2 Edilberto Zamora [facility] 08-28-2019 15:09-0500 Body weight 111.59 kg Edilberto JaraSegundoHogar 08-28-2019 15:09-0500 BP Diastolic 80 mm[Hg] Edilberto Zamora [facility] 08-28-2019 15:09-0500 BP Systolic 126 mm[Hg] Edilberto JaraSegundoHogar 08-28-2019 15:09-0500 BSA (Body Surface Area) 2.37 m2 Edilberto Chu Shu 08-28-2019 15:09-0500 Height 181.61 cm Edilberto Zamora [facility] 08-28-2019 15:09-0500 Pulse (Heart Rate) 80 /min Edilberto Tijerina [employer] 05-28-2019 18:11-0500 BMI (Body Mass Index) 33.51 kg/m2 Ericka [employer] 05-28-2019 18:11-0500 Body weight 111.13 kg Ericka Muniz [facility] 05-28-2019 18:11-0500 BP Diastolic 74 mm[Hg] Ericka Muniz [facility] 05-28-2019 18:11-0500 BP Systolic 124 mm[Hg] Ericka Muniz [facility] 05-28-2019 18:11-0500 BSA (Body Surface Area) 2.37 m2 Ericka Muniz [facility] 05-28-2019 18:11-0500 Height 182.12 cm Ericka Muniz [facility] 05-28-2019 18:11-0500 Pulse (Heart Rate) 80 /min Ericka Tijerina [employer] 04-17-2019 17:27-0400 BMI (Body Mass Index) 33.96 kg/m2 Edilberto Chu Shu 04-17-2019 17:27-0400 Body weight 112.95 kg Edilberto Chu Shu 04-17-2019 17:27-0400 BP Diastolic 86 mm[Hg] Edilberto Chu Shu 04-17-2019 17:27-0400 BP Systolic 122 mm[Hg] Edilberto Chu Shu 04-17-2019 17:27-0400 BSA (Body Surface Area) 2.39 m2 Edilberto Chu Shu 04-17-2019 17:27-0400 Height 182.37 cm Edilberto Chu Shu 04-17-2019 17:27-0400 Pulse (Heart Rate) 102 /min Edilberto [employer] 01-25-2019 13:01-0400 BMI (Body Mass Index) 34.3 kg/m2 Ericka Muniz [facility] 01-25-2019 13:01-0400 Body weight 114.08 kg Ericka [employer] 01-25-2019 13:01-0400 BP Diastolic 92 mm[Hg] Ericka Muniz [facility] 01-25-2019 13:01-0400 BP Systolic 142 mm[Hg] Ericka [employer] 01-25-2019 13:01-0400 BSA (Body Surface Area) 2.4 m2 Ericka [employer] 01-25-2019 13:01-0400 Height 182.37 cm Ericka [employer] 01-25-2019 13:01-0400 Pulse (Heart Rate) 88 /min Ericka [facility] [employer] 12-12-2018 13:49-0400 BMI (Body Mass Index) 34.5 kg/m2 Edilberto Chu Shu 12-12-2018 13:49-0400 Body weight 114.76 kg Ericka Muniz [facility] 12-12-2018 13:49-0400 BP Diastolic 88 mm[Hg] Edilberto Chu Shu 12-12-2018 13:49-0400 BP Systolic 148 mm[Hg] Edilberto JaraSeg[employer]Hogar 12-12-2018 13:49-0400 BSA (Body Surface Area) 2.41 m2 Edilberto Chu Shu 12-12-2018 13:49-0400 Height 182.37 cm Edilberto Chu Shu 12-12-2018 13:49-0400 Pulse (Heart Rate) 90 /min Edilberto [employer] 12-12-2018 13:49-0400 Weight 114.76 kg Edilberto Chu Shu 10-02-2018 13:45-0400 BMI (Body Mass Index) 34.38 kg/m2 Edilberto JaraSegundoHogar 10-02-2018 13:45-0400 Body weight 113.4 kg Ericka Muniz [facility] 10-02-2018 13:45-0400 BP Diastolic 90 mm[Hg] Edilberto Chu Shu 10-02-2018 13:45-0400 BP Systolic 164 mm[Hg] Edilberto Chu Shu 10-02-2018 13:45-0400 BSA (Body Surface Area) 2.39 m2 Edilberto Chu Shu 10-02-2018 13:45-0400 Height 181.61 cm Edilberto Chu Shu 10-02-2018 13:45-0400 Pulse (Heart Rate) 90 /min Edilberto [employer] 10-02-2018 13:45-0400 Weight 113.4 kg Edilberto Chu Shu 08-30-2018 13:14-0500 BMI (Body Mass Index) 33.74 kg/m2 Edilberto Chu Shu 08-30-2018 13:14-0500 Body weight 111.27 kg Ericka Muniz [facility] 08-30-2018 13:14-0500 BP Diastolic 88 mm[Hg] Edilberto Chu Shu 08-30-2018 13:14-0500 BP Systolic 142 mm[Hg] Edilberto Chu Shu 08-30-2018 13:14-0500 BSA (Body Surface Area) 2.37 m2 Edilberto Chu Shu 08-30-2018 13:14-0500 Height 181.61 cm Edilberto JaraSegundoHogar 08-30-2018 13:14-0500 Pulse (Heart Rate) 84 /min Edilberto Tijerina [employer] 08-30-2018 13:14-0500 Weight 111.27 kg Edilberto Zamora [facility] 06-19-2018 13:18-0500 Body weight 112.04 kg Ericka Muniz [facility] 06-19-2018 13:18-0500 BP Diastolic 80 mm[Hg] Edilberto Chu Shu 06-19-2018 13:18-0500 BP Systolic 138 mm[Hg] Edilberto Chu Shu 06-19-2018 13:18-0500 Pulse (Heart Rate) 70 /min Edilberto [employer] 06-19-2018 13:18-0500 Weight 112.04 kg Edilberto Chu Shu 03-20-2018 14:25-0400 BMI (Body Mass Index) 32.28 kg/m2 Edilberto Chu Shu 03-20-2018 14:25-0400 Body weight 107.96 kg Ericka uMniz [facility] 03-20-2018 14:25-0400 BP Diastolic 80 mm[Hg] Edilberto Chu Shu 03-20-2018 14:25-0400 BP Systolic 142 mm[Hg] Edilberto Chu Shu 03-20-2018 14:25-0400 BSA (Body Surface Area) 2.34 m2 Edilberto Chu Shu 03-20-2018 14:25-0400 Height 182.88 cm Edilberto Zamora [facility] 03-20-2018 14:25-0400 Pulse (Heart Rate) 78 /min Edilberto Tijerina [employer] 03-20-2018 14:25-0400 Weight 107.96 kg Edilberto Zamora [facility] 03-01-2018 13:34-0400 BMI (Body Mass Index) 32.55 kg/m2 Edilberto Zamora [facility] 03-01-2018 13:34-0400 Body weight 108.86 kg Ericka [employer] 03-01-2018 13:34-0400 BP Diastolic 104 mm[Hg] Edilberto aZmora [facility] 03-01-2018 13:34-0400 BP Systolic 138 mm[Hg] Edilberto Zamora [facility] 03-01-2018 13:34-0400 BSA (Body Surface Area) 2.35 m2 Edilberto Zamora [facility] 03-01-2018 13:34-0400 Height 182.88 cm Edilberto Zamora [facility] 03-01-2018 13:34-0400 Pulse (Heart Rate) 104 /min Edilberto [employer] 03-01-2018 13:34-0400 Weight 108.86 kg Edilberto JaraSegundoHogar 12-13-2017 13:50-0400 BMI (Body Mass Index) 33.36 kg/m2 Edilberto Chu Shu 12-13-2017 13:50-0400 Body weight 111.59 kg Ericka Muniz [facility] 12-13-2017 13:50-0400 BP Diastolic 78 mm[Hg] Edilberto JaraSegundoHogar 12-13-2017 13:50-0400 BP Systolic 144 mm[Hg] Edilberto Chu Shu 12-13-2017 13:50-0400 BSA (Body Surface Area) 2.38 m2 Edilberto Chu Shu 12-13-2017 13:50-0400 Height 182.88 cm Edilberto Chu Shu 12-13-2017 13:50-0400 Pulse (Heart Rate) 76 /min Edilberto [employer] 12-13-2017 13:50-0400 Weight 111.59 kg Edilberto Chu Shu 09-01-2017 13:48-0500 BMI (Body Mass Index) 33.09 kg/m2 Edilberto Chu Shu 09-01-2017 13:48-0500 Body weight 110.68 kg Ericka Muniz [employer] 09-01-2017 13:48-0500 BP Diastolic 92 mm[Hg] Edilberto Chu Shu 09-01-2017 13:48-0500 BP Systolic 128 mm[Hg] Edilberto Chu Shu 09-01-2017 13:48-0500 BSA (Body Surface Area) 2.37 m2 [employer] 09-01-2017 13:48-0500 Height 182.88 cm EdilbertoVestar Capital Partners 09-01-2017 13:48-0500 Pulse (Heart Rate) 80 /min Edilberto Silveirahard Francisco [employer] 09-01-2017 13:48-0500 Weight 110.68 kg Edilberto Zamora [facility] 08-05-2017 13:30-0500 BMI (Body Mass Index) 33.63 kg/m2 Edilberto JaraSegundoHogar 08-05-2017 13:30-0500 Body weight 112.49 kg Ericka Muniz [employer] 08-05-2017 13:30-0500 BP Diastolic 80 mm[Hg] Edilberto Chu Shu 08-05-2017 13:30-0500 BP Systolic 140 mm[Hg] Edilberto Chu Shu 08-05-2017 13:30-0500 BSA (Body Surface Area) 2.39 m2 Edilberto Chu Shu 08-05-2017 13:30-0500 Height 182.88 cm Edilberto Chu Shu 08-05-2017 13:30-0500 Pulse (Heart Rate) 84 /min Edilberto [employer] 08-05-2017 13:30-0500 Weight 112.49 kg Edilberto Chu Shu 06-27-2017 17:18-0500 BMI (Body Mass Index) 33.63 kg/m2 Edilberto Chu Shu 06-27-2017 17:18-0500 Body weight 112.49 kg Ericka Muniz [employer] 06-27-2017 17:18-0500 BP Diastolic 90 mm[Hg] Edilberto Chu Shu 06-27-2017 17:18-0500 BP Systolic 140 mm[Hg] Edilberto SilveiraLinekong 06-27-2017 17:18-0500 BSA (Body Surface Area) 2.39 m2 Edilberto Zamora MonroeLinekong 06-27-2017 17:18-0500 Height 182.88 cm Edilberto JaraSegundoHogar 06-27-2017 17:18-0500 Pulse (Heart Rate) 80 /min [facility]ilberto [facility] 06-27-2017 17:18-0500 Weight 112.49 kg Edilberto JaraSegundoHogar 04-05-2017 13:30-0400 Body weight 106.6 kg Ericka Muniz [employer] 04-05-2017 13:30-0400 BP Diastolic 80 mm[Hg] Edilberto JaraSegundoHogar 04-05-2017 13:30-0400 BP Systolic 118 mm[Hg] Edilberto Zamora [employer] 04-05-2017 13:30-0400 Pulse (Heart Rate) 70 /min Edilberto Silveirahard Francisco [employer] 04-05-2017 13:30-0400 Weight 106.6 kg Edilberto JaraSegundoHogar 03-01-2017 12:25-0400 BMI (Body Mass Index) 32.01 kg/m2 Edilberto Chu Shu 03-01-2017 12:25-0400 Body weight 107.05 kg Ericka Muniz [employer] 03-01-2017 12:25-0400 BP Diastolic 80 mm[Hg] Edilberto SilveiraLinekong 03-01-2017 12:25-0400 BP Systolic 116 mm[Hg] Edilberto SilveiraLinekong 03-01-2017 12:25-0400 BSA (Body Surface Area) 2.33 m2 Edilberto SilveiraLinekong 03-01-2017 12:25-0400 Height 182.88 cm Edilberto SilveiraLinekong 03-01-2017 12:25-0400 Pulse (Heart Rate) 84 /min Edilberto [employer] 03-01-2017 12:25-0400 Weight 107.05 kg Edilberto Zamora [employer] 02-09-2017 13:42-0400 BMI (Body Mass Index) 32.01 kg/m2 Edilberto SilveiraLinekong 02-09-2017 13:42-0400 Body weight 107.05 kg Ericka SilveiraLinekong 02-09-2017 13:42-0400 BP Diastolic 80 mm[Hg] Edilberto Zamora [employer] 02-09-2017 13:42-0400 BP Systolic 130 mm[Hg] Edilberto Zamora [employer] 02-09-2017 13:42-0400 BSA (Body Surface Area) 2.33 m2 Edilberto Zamora [employer] 02-09-2017 13:42-0400 Height 182.88 cm Edilberto Zamora [employer] 02-09-2017 13:42-0400 Pulse (Heart Rate) 80 /min Edilberto Zamora [employer] 02-09-2017 13:42-0400 Weight 107.05 kg Edilberto Zamora [employer] 11-30-2016 13:21-0400 BMI (Body Mass Index) 32.35 kg/m2 Edilberto Zamora [employer] 11-30-2016 13:210400 Body weight 108.18 kg Ericka Muniz [employer] 11-30-2016 13:21-0400 BP Diastolic 76 mm[Hg] Edilberto Chu Shu 11-30-2016 13:21-0400 BP Systolic 128 mm[Hg] Edilberto Chu Shu 11-30-2016 13:21-0400 BSA (Body Surface Area) 2.34 m2 Edilberto Chu Shu 11-30-2016 13:21-0400 Height 182.88 cm Edilberto Chu Shu 11-30-2016 13:21-0400 Pulse (Heart Rate) 84 /min Edilberto [employer] velasquez [employer] 11-30-2016 13:21-0400 Weight 108.18 kg Edilberto JaraSegundoHogar 09-28-2016 11:37-0400 BMI (Body Mass Index) 32.75 kg/m2 Edilberto Chu Shu 09-28-2016 11:37-0400 Body weight 109.54 kg Ericka Muniz [employer] 09-28-2016 11:37-0400 BP Diastolic 92 mm[Hg] Edilberto Chu Shu 09-28-2016 11:37-0400 BP Systolic 142 mm[Hg] Edilberto Chu Shu 09-28-2016 11:37-0400 BSA (Body Surface Area) 2.36 m2 Edilberto SilveiraLinekong 09-28-2016 11:37-0400 Height 182.88 cm Edilberto SilveiraLinekong 09-28-2016 11:37-0400 Pulse (Heart Rate) 100 /min Edilberto Tijerina [employer] 09-28-2016 11:37-0400 Weight 109.54 kg Edilberto Zamora [employer] 08-03-2016 13:51-0500 BMI (Body Mass Index) 32.96 kg/m2 Edilberto Zamora [employer] 08-03-2016 13:51-0500 Body weight 110.22 kg Ericka SilveiraLinekong 08-03-2016 13:51-0500 BP Diastolic 96 mm[Hg] Edilberto Zamora [employer] 08-03-2016 13:51-0500 BP Systolic 152 mm[Hg] Edilberto Zamora [employer] 08-03-2016 13:51-0500 BSA (Body Surface Area) 2.37 m2 Edilberto Zamora [employer] 08-03-2016 13:51-0500 Height 182.88 cm Edilberto Zamora [employer] 08-03-2016 13:51-0500 Pulse (Heart Rate) 108 /min Edilberto [employer] 08-03-2016 13:51-0500 Weight 110.22 kg Edilberto Zamora [employer] 03-31-2016 11:23-0400 BMI (Body Mass Index) 32.64 kg/m2 Edilberto JaraSegundoHogar 03-31-2016 11:23-0400 Body weight 106.14 kg Ericka Muniz [employer] 03-31-2016 11:23-0400 BP Diastolic 76 mm[Hg] Edilberto JaraSegundoHogar 03-31-2016 11:23-0400 BP Systolic 124 mm[Hg] Edilberto Chu Shu 03-31-2016 11:23-0400 BSA (Body Surface Area) 2.31 m2 Edilberto Chu Shu 03-31-2016 11:23-0400 Height 180.34 cm Edilberto Chu Shu 03-31-2016 11:23-0400 Pulse (Heart Rate) 80 /min Edilberto Lagiarnchard Francisco [employer] 03-31-2016 11:23-0400 Weight 106.14 kg Edilberto Chu Shu 03-30-2016 13:44-0400 BMI (Body Mass Index) 32.85 kg/m2 Edilberto Chu Shu 03-30-2016 13:44-0400 Body weight 106.82 kg Ericka Muniz [employer] 03-30-2016 13:44-0400 BP Diastolic 70 mm[Hg] Edilberto Chu Shu 03-30-2016 13:44-0400 BP Systolic 136 mm[Hg] Edilberto Chu Shu 03-30-2016 13:44-0400 BSA (Body Surface Area) 2.31 m2 [employer]ilbertoVestar Capital Partners 03-30-2016 13:44-0400 Height 180.34 cm Edilberto JaraSegundoHogar 03-30-2016 13:44-0400 Pulse (Heart Rate) 96 /min Edilberto [employer] 03-30-2016 13:44-0400 Weight 106.82 kg Edilberto Chu Shu 02-23-2016 14:54-0400 BMI (Body Mass Index) 32.71 kg/m2 Edilberto Chu Shu 02-23-2016 14:54-0400 Body weight 106.37 kg Ericka Muniz [employer] 02-23-2016 14:54-0400 BP Diastolic 90 mm[Hg] Edilberto Chu Shu 02-23-2016 14:54-0400 BP Systolic 132 mm[Hg] Edilberto Chu Shu 02-23-2016 14:54-0400 BSA (Body Surface Area) 2.31 m2 Edilberto Chu Shu 02-23-2016 14:54-0400 Height 180.34 cm Edilberto Chu Shu 02-23-2016 14:54-0400 Pulse (Heart Rate) 88 /min Edilberto [employer] 02-23-2016 14:54-0400 Weight 106.37 kg Edilberto Chu Shu 12-23-2015 13:34-0400 BMI (Body Mass Index) 33.89 kg/m2 Edilberto Chu Shu 12-23-2015 13:34-0400 Body weight 110.22 kg Ericka Muniz [employer] 12-23-2015 13:34-0400 BP Diastolic 76 mm[Hg] [facility]to [facility] 12-23-2015 13:34-0400 BP Systolic 110 mm[Hg] Edilberto SilveiraSynergos Inc 12-23-2015 13:34-0400 BSA (Body Surface Area) 2.35 m2 Edilberto Zamora [employer] 12-23-2015 13:34-0400 Height 180.34 cm Edilberto Zamora [employer] 12-23-2015 13:34-0400 Pulse (Heart Rate) 100 /min Edilberto Tijerina [facility] [employer] 12-23-2015 13:34-0400 Weight 110.22 kg Edilberto Zamora [employer] 12-09-2015 13:00-0400 BMI (Body Mass Index) 33.47 kg/m2 Edilberto Zamora [employer] 12-09-2015 13:00-0400 Body weight 108.86 kg Ericka SilveiraLinekong 12-09-2015 13:00-0400 BP Diastolic 74 mm[Hg] Edilberto Zamora [employer] 12-09-2015 13:00-0400 BP Systolic 114 mm[Hg] Edilberto Zamora [employer] 12-09-2015 13:00-0400 BSA (Body Surface Area) 2.34 m2 Edilberto Chu Shu 12-09-2015 13:00-0400 Height 180.34 cm Edilberto Zamora [employer] 12-09-2015 13:00-0400 Pulse (Heart Rate) 100 /min Edilberto [employer] 12-09-2015 13:00-0400 Weight 108.86 kg Edilberto JaraSegundoHogar 12-03-2015 12:29-0400 BMI (Body Mass Index) 34.31 kg/m2 Edilberto Chu Shu 12-03-2015 12:290400 Body weight 111.59 kg Ericka Muniz [employer] 12-03-2015 12:290400 BP Diastolic 66 mm[Hg] Edilberto Chu Shu 12-03-2015 12:29-0400 BP Systolic 114 mm[Hg] Edilberto Chu Shu 12-03-2015 12:290400 BSA (Body Surface Area) 2.36 m2 Edilberto Chu Shu 12-03-2015 12:290400 Height 180.34 cm Edilberto Chu Shu 12-03-2015 12:29-0400 Pulse (Heart Rate) 100 /min Edilberto Jaraeder [employer] 12-03-2015 12:290400 Weight 111.59 kg Edilberto Chu Shu 11-18-2015 13:52-0400 BMI (Body Mass Index) 34.07 kg/m2 Edilberto Chu Shu 11-18-2015 13:52-0400 Body weight 110.82 kg Ericka Muniz [employer] 11-18-2015 13:52-0400 BP Diastolic 82 mm[Hg] Edilberto Chu Shu 11-18-2015 13:52-0400 BP Systolic 124 mm[Hg] Edilberto SilveiraLinekong 11-18-2015 13:52-0400 BSA (Body Surface Area) 2.36 m2 Edilberto SilveiraLinekong 11-18-2015 13:52-0400 Height 180.34 cm Edilberto Zamora [employer] 11-18-2015 13:52-0400 Pulse (Heart Rate) 100 /min Edilberto [employer] 11-18-2015 13:52-0400 Weight 110.82 kg Edilberto Zamora [employer] 11-05-2015 14:53-0400 BMI (Body Mass Index) 34.31 kg/m2 Edilberto Zamora [employer] 11-05-2015 14:53-0400 Body weight 111.59 kg Ericka SilveiraLinekong 11-05-2015 14:53-0400 BP Diastolic 70 mm[Hg] Edilberto Zamora [employer] 11-05-2015 14:53-0400 BP Systolic 140 mm[Hg] Edilberto Zamora [employer] 11-05-2015 14:53-0400 BSA (Body Surface Area) 2.36 m2 Edilberto Zamora [employer] 11-05-2015 14:53-0400 Height 180.34 cm Edilberto Zamora [employer] 11-05-2015 14:53-0400 Pulse (Heart Rate) 120 /min Edilberto [employer] 11-05-2015 14:53-0400 Weight 111.59 kg Edilberto Zamora [employer] 10-13-2015 13:24-0400 BMI (Body Mass Index) 34.38 kg/m2 Edilberto JaraSegundoHogar 10-13-2015 13:24-0400 Body weight 111.81 kg Erikca Muniz [employer] 10-13-2015 13:24-0400 BP Diastolic 84 mm[Hg] Edilberto Chu Shu 10-13-2015 13:24-0400 BP Systolic 144 mm[Hg] Edilberto Chu Shu 10-13-2015 13:24-0400 BSA (Body Surface Area) 2.37 m2 Edilberto Chu Shu 10-13-2015 13:24-0400 Height 180.34 cm Edilberto Chu Shu 10-13-2015 13:24-0400 Pulse (Heart Rate) 108 /min Edilberto [employer] Francisco velasquezHello Inc 10-13-2015 13:24-0400 Weight 111.81 kg Edilberto Chu Shu 10-03-2015 11:47-0400 BMI (Body Mass Index) 34.38 kg/m2 Edilberto Chu Shu 10-03-2015 11:47-0400 Body weight 111.81 kg Ericka Muniz [employer] 10-03-2015 11:47-0400 BP Diastolic 80 mm[Hg] Edilberto Chu Shu 10-03-2015 11:47-0400 BP Systolic 106 mm[Hg] Edilberto Chu Shu 10-03-2015 11:47-0400 BSA (Body Surface Area) 2.37 m2 Edilberto Zamora [employer] 10-03-2015 11:47-0400 Height 180.34 cm Edilberto SilveiraLinekong 10-03-2015 11:47-0400 Pulse (Heart Rate) 116 /min Edilberto Tijerina [employer] 10-03-2015 11:47-0400 Weight 111.81 kg Edilberto Zamora [employer] 09-29-2015 12:48-0400 BMI (Body Mass Index) 35.15 kg/m2 Edilberto Zamora [employer] 09-29-2015 12:48-0400 Body weight 114.31 kg Ericka SilveiraLinekong 09-29-2015 12:48-0400 BP Diastolic 68 mm[Hg] Edilberto Zamora [employer] 09-29-2015 12:48-0400 BP Systolic 108 mm[Hg] Edilberto Zamora [employer] 09-29-2015 12:48-0400 BSA (Body Surface Area) 2.39 m2 Edilberto Chu Shu 09-29-2015 12:48-0400 Height 180.34 cm Edilberto Zamora [employer] 09-29-2015 12:48-0400 Pulse (Heart Rate) 76 /min Edilberto [employer] 09-29-2015 12:48-0400 Weight 114.31 kg Edilberto JaraSegundoHogar 08-26-2015 15:06-0500 Pulse Oximetry 97 % Edilberto Chu Shu 08-26-2015 15:06-0500 SaO2% (BldA) [Mass fraction] 97 % Ericka Muniz [employer] 08-26-2015 14:14-0500 BMI (Body Mass Index) 36.26 kg/m2 Edilberto Chu Shu 08-26-2015 14:14-0500 Body Temperature 98.1 [degF] Edilberto [employer] 08-26-2015 14:14-0500 Body weight 117.94 kg Ericka Muniz [employer] 08-26-2015 14:14-0500 BP Diastolic 64 mm[Hg] Edilberto Chu Shu 08-26-2015 14:14-0500 BP Systolic 100 mm[Hg] Edilberto Chu Shu 08-26-2015 14:14-0500 BSA (Body Surface Area) 2.43 m2 Edilberto Chu Shu 08-26-2015 14:14-0500 Height 180.34 cm Edilberto Chu Shu 08-26-2015 14:14-0500 Pulse (Heart Rate) 112 /min Edilberto [employer] 08-26-2015 14:14-0500 Respiratory Rate 20 /min Edilberto [employer] 08-26-2015 14:14-0500 Weight 117.94 kg Edilberto Chu Shu 08-12-2015 13:36-0500 BMI (Body Mass Index) 36.26 kg/m2 Edilberto Chu Shu 08-12-2015 13:36-0500 Body weight 117.94 kg Ericka Muniz [employer] 08-12-2015 13:36-0500 BP Diastolic 70 mm[Hg] Edilberto Zamora [employer] 08-12-2015 13:36-0500 BP Systolic 104 mm[Hg] Edilberto Zamora [employer] 08-12-2015 13:36-0500 BSA (Body Surface Area) 2.43 m2 Edilberto Chu Shu 08-12-2015 13:36-0500 Height 180.34 cm Edilberto Chu Shu 08-12-2015 13:36-0500 Pulse (Heart Rate) 76 /min Edilberto JaraVeristorm [facility] [employer] 08-12-2015 13:36-0500 Weight 117.94 kg Edilberto Chu Shu 07-24-2015 13:00-0500 BMI (Body Mass Index) 36.4 kg/m2 Edilberto Chu Shu 07-24-2015 13:00-0500 Body Temperature 97.6 [degF] Edil[facility]to [facility] [employer] 07-24-2015 13:00-0500 Body weight 118.39 kg Ericka SilveiraLinekong 07-24-2015 13:00-0500 BP Diastolic 80 mm[Hg] Edilberto Zamora [employer] 07-24-2015 13:00-0500 BP Systolic 144 mm[Hg] Edilberto Chu Shu 07-24-2015 13:00-0500 BSA (Body Surface Area) 2.44 m2 Edilberto Chu Shu 07-24-2015 13:00-0500 Height 180.34 cm Edilberto SilveiraLinekong 07-24-2015 13:00-0500 Pulse (Heart Rate) 120 /min Edilberto Tijerina [employer] 07-24-2015 13:00-0500 Weight 118.39 kg Edilberto Zamora [employer] 06-03-2015 13:38-0500 BMI (Body Mass Index) 35.98 kg/m2 Edilberto Zamora [employer] 06-03-2015 13:38-0500 Body Temperature 98.8 [degF] Edilberto Zamora Monroe [employer] 06-03-2015 13:38-0500 Body weight 117.03 kg Ericka SilveiraLinekong 06-03-2015 13:38-0500 BP Diastolic 90 mm[Hg] Edilberto Zamora [employer] 06-03-2015 13:38-0500 BP Systolic 144 mm[Hg] Edilberto Zamora [employer] 06-03-2015 13:38-0500 BSA (Body Surface Area) 2.42 m2 Edilberto LagiarncLinekong 06-03-2015 13:38-0500 Height 180.34 cm Edilberto Zamora [employer] 06-03-2015 13:38-0500 Pulse (Heart Rate) 84 /min Edilberto Tijerina [employer] 06-03-2015 13:38-0500 Weight 117.03 kg Edilberto Chu Shu Encounters Encounter Date Encounter Type Care Provider Facility Start: 06-16-2023 End: 06-18-2023 Pre-admission assessment NAYLA OAKES [facility] Start: 10-27-2022 ambulatory NAYLA OAKES Faci lity:[facility] Start: 07-28-2022 End: 07-29-2022 ambulatory NAYLA OAKES Facility:[facility] Start: 07-27-2022 Lab Edilberto schmitt Other [facility] Start: 07-27-2022 Office Services Ericka Muniz Other [facility] Start: 07-27-2022 Foot examination performed Edilberto Zamora [facility] Start: 07-27-2022 End: 07-27-2022 Office outpatient visit 25 minutes Edilberto Zamora Other [facility] Start: 06-23-2022 End: 06-24-2022 ambulatory NAYLA OAKES Facility:[facility] Start: 05-27-2022 End: 05-27-2022 ambulatory Fariha Mariellasey Facility:[facility] Start: 05-27-2022 End: 05-27-2022 ambulatory NON STAFF [facility] Work Phone: Start: 05-27-2022 End: 05-27-2022 Discharged Recurring [facility] [place] Start: 05-26-2022 End: 05-26-2022 ambulatory NON STAFF Facility:[facility] Start: 05-26-2022 End: 05-26-2022 ambulatory NON STAFF [facility] Work Phone: Start: 05-26-2022 End: 05-26-2022 Patient encounter procedure [facility]-CT [address] Start: 05-05-2022 Registered Recurring Fi [facility] [place] Start: 04-22-2022 End: 04-22-2022 ambulatory NON STAFF Facility:[facility] Start: 04-22-2022 End: 04-22-2022 ambulatory NON STAFF [facility] Work Phone: Start: 04-22-2022 End: 04-22-2022 Patient encounter procedure [facility] [place] Start: 04-21-2022 End: 04-21-2022 ambulatory NON STAFF Facility:[facility] Start: 04-21-2022 End: 04-21-2022 ambulatory NON STAFF [facility] Work Phone: Start: 04-21-2022 End: 04-21-2022 Patient encounter procedure [facility] [place] Start: 04-14-2022 Registered Recurring [facility] Start: 04-01-2022 End: 04-01-2022 Emergency department patient visit Madison Mosher Facility:[facility] Start: 04-01-2022 End: 04-01-2022 Emergency department patient visit [facility]Emergency [facility] Start: 04-01-2022 Office outpatient ne w 20 minutes Franky P Dyana Other [facility] Office Start: 04-01-2022 Office outpatient vi sit 15 minutes Franky P Dyana Other [facility] Start: 03-16-2022 Office outpatient vi sit 15 minutes Franky P Dyana Other [facility] Start: 02-17-2022 Office outpatient vi sit 15 minutes Franky P Dyana Other [facility] Start: 02-17-2022 Lab Ericka Muniz Other [facility] Start: 02-17-2022 Office outpatient vi sit 15 minutes Ericka Muniz Other [facility] Start: 01-15-2022 Lab Edilberto schmitt Other [facility] Start: 01-15-2022 Office outpatient vi sit 15 minutes Franky P Dyana Other [facility] Start: 01-15-2022 Foot examination performed Edilberto Zamora [facility] Start: 01-15-2022 Office outpatient vi sit 25 minutes Edilberto Zamora Other [facility] Office Start: 10-20-2021 Office outpatient vi sit 25 minutes Franky Yu Dyana Other [facility] Office Start: 10-13-2021 End: 10-14-2021 ambulatory Franky Turpin DPM Facility:[facility] Start: 09-17-2021 End: 09-18-2021 ambulatory Franky Turpin DPM Facility:[facility] Start: 09-17-2021 Office outpatient ne w 45 minutes Franky Yu Dyana Other [facility] Office Start: 09-17-2021 Office Services Franky Yu March and Other [facility] Office Start: 09-03-2021 Office outpatient vi sit 25 minutes Ericka Muniz Other [facility] Office Start: 09-03-2021 Foot examination performed [employer] Start: 09-03-2021 Office outpatient vi sit 25 minutes Edilberto L Sera Other [facility] Office Start: 08-18-2021 Lab Edilberto L Mareke keshia Other [facility] Office Start: 08-18-2021 Medicare Lab Edilberto L Schroe keshia Other [facility] Start: 03-19-2021 Medicare Lab Edilberto L Schroe keshia Other [facility]Lab Start: 03-19-2021 Foot examination performed [employer] Start: 03-19-2021 Office outpatient vi sit 25 minutes Edilberto L Sera Other [facility] Office Start: 12-23-2020 Lab Ericka Muniz Other [facility] Office Start: 12-23-2020 Office outpatient vi sit 25 minutes Ericka Muniz Other [facility] Office Start: 10-20-2020 Encounter for genera l adult medical examination without abnormal findings Ericka Muniz [employer] Start: 09-09-2020 Foot exam performed Edilberto Zamora [employer] Start: 09-09-2020 Office outpatient vi sit 25 minutes Edilberto Zamora Other [facility] Start: 09-09-2020 Medicare Lab Edilberto Jaimes keshia Other [facility] Start: 08-05-2020 Office outpatient vi sit 15 minutes Ericka Muniz Other [facility] Start: 06-12-2020 Office outpatient vi sit 15 minutes Ericka Muniz Other [facility] Start: 06-04-2020 Office outpatient vi sit 15 minutes Ericka Muniz Other [facility] Start: 04-08-2020 Medicare Lab Edilberto Jaimes keshia Other [facility] Start: 04-08-2020 Foot exam performed Edilberto Zamora [employer] Start: 04-08-2020 Office outpatient vi sit 25 minutes Edilberto Zamora Other [facility] Office Start: 03-25-2020 End: 03-28-2020 Patient encounter procedure MIGNON TOWNSEND [facility] Start: 03-25-2020 End: 03-27-2020 Subsequent hospital visit by physician [facility] Mri Scanner [facility] MRI Comment on above: Right knee pain, uns pecified chronicity Start: 02-21-2020 Office outpatient visit 15 minutes Ericka Muniz Other [facility] Office Start: 02-12-2020 End: 02-15-2020 Patient encounter procedure ERICKA MUNIZ [facility] Start: 02-12-2020 End: 02-14-2020 Subsequent hospital visit by physician [facility] Mri Scanner [facility] MRI Comment on above: Acute pain of right shoulder Start: 01-10-2020 Office outpatient vi sit 15 minutes Ericka Muniz Other [facility] Office Start: 12-28-2019 End: 12-28-2019 Subsequent hospital visit by physician Tess Escalona Work Phone: [facility] OR Comment on above: 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, initial encounter (Primary Dx) Start: 12-27-2019 Office outpatient visit 25 minutes Edilberto Zamora Other [facility] Office Start: 12-26-2019 End: 12-27-2019 Patient encounter procedure [facility] Start: 12-26-2019 End: 12-26-2019 Subsequent hospital visit by physician [facility] Lab Drawing Room [facility] Laboratory Comment on above: Arrived Start: 12-24-2019 End: 12-25-2019 Patient encounter procedure [facility] Start: 12-24-2019 End: 12-28-2019 Subsequent hospital visit by physician [facility] Covid19 Pat Screening Schedule [facility] EKG Start: 12-20-2019 Lab Edilberto Melinda Jaimes keshia Other [facility] Office Start: 11-26-2019 Office outpatient vi sit 15 minutes Ericka Muniz Other [facility] Office Start: 11-26-2019 Office outpatient vi sit 25 minutes Ericka Muniz Other [facility] Office Start: 11-19-2019 Lab Ericka Muniz Other [facility] Office Start: 08-28-2019 Foot exam performed Edilberto Zamora [employer] Start: 08-28-2019 Office outpatient vi sit 25 minutes Edilberto Zamora Other [facility] Office Start: 08-21-2019 Lab Edilberto Jaimes keshia Other [facility] Office Start: 05-28-2019 Encounter for genera l adult medical examination without abnormal findings Edilberto Zamora [employer] Start: 05-28-2019 Routine general medi trent examination at a health care facility Ericka Muniz [employer] Start: 05-28-2019 Periodic preventive med est patient 40-64yrs Ericka Muniz Other [facility] Start: 05-22-2019 Lab Ericka Muniz Other [facility] Office Start: 04-17-2019 Foot exam performed Edilberto Zamora [employer] Start: 04-17-2019 Office outpatient vi sit 25 minutes Edilberto Zamora Other [facility] Start: 04-12-2019 Follow-up visit Ayden Trudy [employer] Start: 04-12-2019 Office outpatient vi sit 5 minutes Ayden rTudy [employer] Start: 04-12-2019 Postoperative follow -up visit Edilberto Zamora [employer] Start: 04-12-2019 Procedure Ayden bowden Other [facility] Start: 04-09-2019 Lab Edilberto Lawrence Theodore keshia Other [facility] Start: 03-29-2019 Procedure Ayden bowden Other [facility] Start: 02-26-2019 Office outpatient ne w 20 minutes Ayden Trudy Other [facility] Start: 01-25-2019 Encounter for genera l adult medical examination without abnormal findings Edilberto Zamora [employer] Start: 01-25-2019 Routine general medi trent examination at a health care facility Ericka Muniz [employer] Start: 01-25-2019 Office outpatient vi sit 15 minutes Ericka Muniz Other [facility] Start: 01-02-2019 Office Services Natty schneider Other [facility] Start: 12-12-2018 Foot exam performed Edilberto Zamora [employer] Start: 12-12-2018 Office outpatient vi sit 25 minutes Edilberto Zamora Other [facility] Start: 12-08-2018 Lab Edilberto Melinda Jaimes keshia Other [facility] Start: 11-09-2018 Patient encounter procedure [facility] Start: 10-12-2018 Procedure Sasha Verdugo Alexandra Other [facility] Start: 10-02-2018 Foot exam performed Edilberto L Sc hroeder Other [facility] Office Start: 10-02-2018 Office outpatient vi sit 25 minutes Edilbertogavi Zamora Other [employer] Start: 09-26-2018 Office Services Edilberto L Schroe keshia Other [facility] Office Start: 08-30-2018 Encounter for genera l adult medical examination without abnormal findings Edilberto Chu Shu Start: 08-30-2018 Routine general medi trent examination at a health care facility Edilberto Chu Shu Start: 08-30-2018 Office outpatient vi sit 25 minutes Ericka Muniz Other [facility] Office Start: 08-23-2018 Lab Ericka Muniz Other [facility] Office Start: 07-27-2018 Office Services Edilberto L Mareke keshia Other [facility] Office Start: 06-21-2018 Procedure Pedro pitts Other [facility] Start: 06-19-2018 Foot exam performed Edilberto L Sc hroeder Other [facility] Office Start: 06-19-2018 Office outpatient vi sit 25 minutes Edilberto L Zamora Other [facility] Start: 06-12-2018 Lab Edilberto L Schroe keshia Other [facility] Office Start: 04-20-2018 Walk-In Ericka Muniz Other [facility] Office Start: 04-20-2018 Office Services Natty schneider Other [facility] Office Start: 03-20-2018 Foot exam performed Edilberto L Sc hroeder Other [facility] Office Start: 03-20-2018 Office outpatient vi sit 25 minutes Edilbertogavi Zamora Other [facility] Start: 03-08-2018 Lab Edilberto L Mareke keshia Other [facility] Office Start: 03-01-2018 Office outpatient vi sit 25 minutes Ericka Muniz Other [facility] Office Start: 02-22-2018 Lab Ericka Muniz Other [facility] Office Start: 01-18-2018 Office Services Ericka Muniz Other [facility] Office Start: 12-13-2017 Foot exam performed Edilberto delgado Other [facility] Office Start: 12-13-2017 Office outpatient vi sit 25 minutes Edilberto Zamora Other [facility] Start: 12-09-2017 Office Services Ericka Muniz Other [facility] Office Start: 11-25-2017 Lab Edilberto Lawrence Theodore keshia Other [facility] Office Start: 09-08-2017 Office Services Edilberto Jaimes keshia Other [facility] Office Start: 09-01-2017 Office outpatient vi sit 25 minutes Ericka Muniz Other [facility] Office Start: 08-24-2017 Lab Ericka Muniz Other [facility] Office Start: 08-09-2017 Office Services Natty schneider Other [facility] Office Start: 08-05-2017 Foot exam performed Edilberto Zamora [employer] Start: 08-05-2017 Office outpatient vi sit 25 minutes Edilberto Zamora Other [facility] Office Start: 08-01-2017 Lab Edilberto Jaimes keshia Other [facility] Office Start: 06-27-2017 Office outpatient vi sit 15 minutes Ericka Muniz Other [facility] Office Start: 04-05-2017 Foot exam performed Edilberto L Sc hroeder Other [facility] Office Start: 04-05-2017 Office outpatient vi sit 25 minutes Edilberto L Zamora Other [employer] Start: 03-29-2017 Lab Edilberto L Schroe keshia Other [facility] Office Start: 03-01-2017 Office outpatient vi sit 25 minutes Ericka R Muniz Other [facility] Office Start: 02-17-2017 End: 02-17-2017 Split Srvc Ericka Muniz Other [facility] Office Start: 02-09-2017 Office outpatient vi sit 25 minutes Ericka Muniz Other [facility] Office Start: 11-30-2016 Foot exam performed Edliberto L Sc hroeder Other [facility] Office Start: 11-30-2016 Office outpatient vi sit 25 minutes Edilberto L Zamora Other [employer] Start: 11-23-2016 Lab Edilberto L Schroe keshia Other [facility] Office Start: 09-28-2016 Office outpatient vi sit 25 minutes Ericka Shah Muniz Other [facility] Office Start: 09-21-2016 Lab Ericka Shah Muniz Other [facility] Office Start: 08-13-2016 Split Srvc Sasha Morris Other [facility] Office Start: 08-03-2016 Foot exam performed Edilberto L Sc hroeder Other [facility] Office Start: 08-03-2016 Office outpatient vi sit 25 minutes Edilberto L Zamora Other [employer] Start: 07-27-2016 Lab Edilberto L Schroe keshia Other [facility] Office Start: 03-31-2016 Office outpatient vi sit 25 minutes Ericka R Muniz Other [facility] Office Start: 03-30-2016 Foot exam performed Edilberto L Sc hroeder Other [facility] Office Start: 03-30-2016 Office outpatient vi sit 25 minutes Edilberto L Zamora Other [employer] Start: 03-04-2016 Lab Edilberto L Schroe keshia Other [facility] Office Start: 02-23-2016 Office outpatient vi sit 15 minutes Ericka R Muniz Other [facility] Office Start: 12-23-2015 Office outpatient vi sit 15 minutes Ericka R Muniz Other [facility] Office Start: 12-09-2015 Office outpatient vi sit 15 minutes Ericka R Muniz Other [facility] Office Start: 12-03-2015 Office outpatient vi sit 15 minutes Edilbertogavi Zamora Other [facility] Office Start: 11-26-2015 Lab Edilberto L Mareke keshia Other [facility] Office Start: 11-18-2015 Office outpatient vi sit 25 minutes Ericka R Muniz Other [facility] Office Start: 11-07-2015 Lab Edilberto L Mareke keshia Other [facility] Office Start: 11-05-2015 Foot exam performed Edilberto L Sc hroeder Other [facility] Office Start: 11-05-2015 Office outpatient vi sit 25 minutes Edilberto Zamora Other [employer] Start: 10-29-2015 Lab Edilberto L Mareke keshia Other [facility] Office Start: 10-13-2015 Office outpatient vi sit 15 minutes Ericka R Muniz Other [facility] Office Start: 10-03-2015 Foot exam performed Edilberto Zamora [employer] Start: 10-03-2015 Office consultation new/estab patient 80 min Edilbertogavi Zamora Other [facility] Office Start: 10-02-2015 Office Services Ericka Muniz Other [facility] Office Start: 09-29-2015 Office outpatient vi sit 25 minutes Ericka Muniz Other [facility] Office Start: 09-24-2015 Procedure Jesus Del Cid Other [facility] Start: 08-26-2015 Office consultation new/estab patient 60 min Jesus Del Cid Other [facility] Office Start: 08-12-2015 Office Services Ericka Muniz Other [facility] Office Start: 08-06-2015 Split Srvc Ericka Muniz Other [facility] Office Start: 08-05-2015 Lab Ericka Muniz Other [facility] Office Start: 08-05-2015 End: 08-05-2015 Split Srvc Ericka Muniz Other [facility] Office Start: 07-24-2015 Office outpatient vi sit 15 minutes Lindsay Kimball Other [facility] Office Start: 06-03-2015 Office outpatient ne w 45 minutes Ericka Muniz Other [facility] Office Procedures Date Procedure Procedure Detail Performing Clinician Start: 07-27-2022 Dip UA (for Ketones) Edilberto Zamora Start: 07-27-2022 Serum inorganic phosphate measurement Edilberto Zamora Start: 07-27-2022 Diabetic foot examination Edilberto shah Start: 07-27-2022 Jade rodriguez by liv torres Start: 07-21-2022 Comprehensive metabolic panel Edilberto Muñzor oekeshia Start: 07-21-2022 Hemoglobin A1c measurement Edilberto Woods er Start: 07-21-2022 MICROALBUMIN/Urine Creat Ratio Edilberto michel Start: 07-21-2022 Parathyroid hormone measurement Edilberto Thomas hroeder Start: 07-21-2022 Vitamin D, 25-hydroxy measurement Edilberto Zamora Start: 07-19-2022 Lipid panel Edilberto Zamora Start: 05-26-2022 CT of right foot Start: 04-22-2022 MRI of right foot with contrast Start: 04-21-2022 MRI of right ankle with contrast Start: 04-05-2022 MRI of lower extremity Edilberto Zamora Start: 04-01-2022 Duplex scan of lower limb veins Start: 04-01-2022 X-ray of right foot Start: 03-31-2022 Docrev cur meds by liv Arenas hand Start: 03-31-2022 X-ray of left ankle Franky Turpin Start: 03-16-2022 Diagnostic radiologic examination Heriberto Gunn Other Start: 03-16-2022 Docrev cur meds by liv Arenas hand Start: 03-16-2022 X-ray of left ankle Franky Turpin Start: 03-16-2022 X-ray of left foot Franky Turpin Start: 02-17-2022 End: 02-17-2022 Comprehensive metabolic panel Franky oSlomon chani Start: 02-17-2022 Docrev cur meds by liv Muniz Start: 02-17-2022 Hemoglobin A1c measurement Franky Naidu nd Start: 02-17-2022 Lipid panel Franky Turpin Start: 02-17-2022 MICROALBUMIN/Urine Creat Ratio Franky Ma rchand Start: 02-16-2022 Docrev cur meds by liv Muniz Start: 01-18-2022 Diabetic foot examination Edilberto shah Start: 01-15-2022 Dip UA (for Ketones) Edilberto Zamora Start: 01-15-2022 Docrev cur meds by elbert priscilla torres Start: 01-14-2022 Docrev cur meds by elbert clin Franky anton Start: 01-01-2022 Comprehensive metabolic panel Edilberto pérez Start: 01-01-2022 Erythrocyte mean corpuscular volume determination Edilberto Zamora Start: 01-01-2022 Gamma glutamyl transferase measurement Edilberto Zamora Start: 01-01-2022 Hemoglobin A1c measurement Edilberto levi Start: 01-01-2022 MICROALBUMIN/Urine Creat Ratio Edilberto michel Start: 10-20-2021 Docrev cur meds by liv Arenas hand Start: 09-17-2021 Dup-scan lxtr art/artl bpgs uni/lmtd study Franky Turpin Start: 09-17-2021 Non-invasive physiologic study extremity 3 levls Franky Turpin Start: 09-17-2021 Docrev cur meds by elbert priscilla Wilkins Dagoberto anton Start: 09-17-2021 Doppler ultrasonography of artery of lower limb Franky Turpin Start: 09-17-2021 Plain X-ray of toe Franky Turpin Start: 09-17-2021 Wound microscopy, culture and sensitivities Franky Turpin Start: 09-03-2021 Diabetic foot examination Edilberto Woodsangelia r Start: 09-03-2021 Docrev cur meds by elbert priscilla torres Start: 08-18-2021 BS-Dip Edilberto Sera Start: 08-18-2021 Comprehensive metabolic panel Edilberto pérez Start: 08-18-2021 Erythrocyte mean corpuscular volume determination Edilberto Zamora Start: 08-18-2021 Hemoglobin A1c measurement Edilberto Peggy levi Start: 08-18-2021 Lipid panel Edilberto Sera Start: 07-19-2021 Gamma glutamyl transferase measurement Edilberto Sera Start: 03-19-2021 Dip UA (for Ketones) Edilberto Zamora Start: 03-19-2021 Diabetic foot examination Edilberto Peggyangelia r Start: 03-19-2021 Docrev cur meds by liv torres Start: 03-12-2021 Comprehensive metabolic panel Edilberto pérez Start: 03-12-2021 Erythrocyte mean corpuscular volume determination Edilberto Sera Start: 03-12-2021 Hemoglobin A1c measurement Edilberto Mareked er Start: 03-12-2021 Parathyroid hormone measurement Edilberto William hroeder Start: 03-12-2021 Serum inorganic phosphate measurement Edilberto Sera Start: 12-23-2020 End: 12-23-2020 Comprehensive metabolic panel Ericka Muniz Start: 12-23-2020 Docrev cur meds by liv Muniz Start: 12-23-2020 Erythrocyte mean corpuscular volume determination Ericka Flavio Start: 12-23-2020 Hemoglobin A1c measurement Ericka Flavio Start: 12-23-2020 Lipid panel Ericka Muniz Start: 12-23-2020 MICROALBUMIN/Urine Creat Ratio Edilberto doeder Start: 12-23-2020 Urinalysis, automated Ericka Muniz Start: 09-09-2020 Dip UA (for Ketones) Edilberto Sera Start: 09-09-2020 Diabetic foot examination Edilberto Peggyangelia shah Start: 09-09-2020 Doc meds verified w/pt or re Edilberto torres Start: 08-08-2020 Comprehensive metabolic panel Edilberto Debra pérez Start: 08-08-2020 Hemoglobin A1c measurement Ericka Muniz Start: 08-08-2020 Hemoglobin glycosylated a1c Edilberto Marekangelia schmitt Start: 04-08-2020 Dip UA (for Ketones) Edilberto Sera Start: 04-08-2020 Diabetic foot examination Edilberto Phylicia judy Start: 04-08-2020 Doc meds verified w/pt or re Edilberto torres Start: 03-28-2020 Glucose quantitative blood xcpt reagent strip Edilberto Sera Start: 03-28-2020 Hemoglobin A1c measurement Ericka Muniz Start: 03-28-2020 Hemoglobin glycosylated a1c Edilberto Theodore keshia Start: 03-28-2020 Hepatic function panel Edilberto Sera Start: 03-28-2020 Hepatic function panel Ericka Muniz Start: 03-25-2020 Mri any jt lower extrem w/o contrast matrl TARIK CALVILLO Start: 03-25-2020 Mri any jt lower extrem w/o contrast matrl Mignon J [place] Work Phone: Start: 02-21-2020 Doc meds verified w/pt or re Ericka Muniz Start: 02-12-2020 Mri any jt upper extremity w/o contrast matrl TARIK CALVILLO Start: 02-12-2020 Mri any jt upper extremity w/o contrast matrl Mignon J [place] Work Phone: Start: 01-09-2020 Doc meds verified w/pt or re Edilberto torres Start: 12-28-2019 GLUCOSE, WHOLE BLOOD Tess [place] Work Phone: Start: 12-27-2019 Basic metabolic panel calcium total Edilberto Sera Start: 12-27-2019 Doc meds verified w/pt or re Edilberto torres Start: 12-27-2019 Hemoglobin A1c measurement Ericka Muniz Start: 12-27-2019 Hemoglobin glycosylated a1c Edilberto schmitt Start: 12-26-2019 Assay of urea nitrogen quantitative TARIK CALVILLO Start: 12-26-2019 Blood count hematocrit TARIK CALVILLO Start: 12-26-2019 Creatinine blood TARIK CALVILLO Start: 12-26-2019 Electrolyte panel TARIK CALVILLO Start: 12-26-2019 Glucose quantitative blood xcpt reagent strip TARIK CALVILLO Start: 12-26-2019 Assay of urea nitrogen quantitative Tess A[place]uland Work Phone: Start: 12-26-2019 Blood count hematocrit Tess Hernandez [place] Work Phone: Start: 12-26-2019 Creatinine blood Tess Abreuland Work Phone: Start: 12-26-2019 Electrolyte panel Tess Abreuland Work Phone: Start: 12-26-2019 Glucose quantitative blood xcpt reagent strip Tess Hernandez [place] Work Phone: Start: 12-24-2019 Ecg routine ecg w/least 12 lds w/i&r TARIK CALVILLO Start: 12-24-2019 EKG REPORT TARIK CALVILLO Start: 12-24-2019 COVID-19 TARIK CALVILLO Start: 12-24-2019 Ecg routine ecg w/least 12 lds w/i&r Tess Abreuland Work Phone: Start: 12-24-2019 EKG REPORT Hpf Scanning Start: 12-24-2019 COVID-19 CedrickAngelia BorgesCalvillo Work Phone: Start: 11-27-2019 Comprehensive metabolic panel Ericka Flavio Start: 11-27-2019 Hemoglobin A1c measurement Ericka Flavio Start: 11-27-2019 Hemoglobin glycosylated a1c Ericka Flavio Start: 11-27-2019 Lipid panel Ericka Flavio Start: 11-27-2019 Lipid panel Ericka Flavio Start: 11-27-2019 MICROALBUMIN/Urine Creat Ratio Ericka Flavio Start: 11-26-2019 Doc meds verified w/pt or re Ericka Flavio Start: 08-28-2019 Basic metabolic panel calcium total Edilberto Zamora Start: 08-28-2019 Diabetic foot examination Edilberto shah Start: 08-28-2019 Doc meds verified w/pt or re Edilberto Jara eder Start: 08-18-2019 Assay of glutamyltrase gamma Edilberto Marek torres Start: 08-18-2019 Basic metabolic panel calcium total Edilberto Zamora Start: 08-18-2019 Gamma glutamyl transferase measurement Ericka Muniz Start: 08-18-2019 Hemoglobin A1c measurement Ericka Muniz Start: 08-18-2019 Hemoglobin glycosylated a1c Edilberto schmitt Start: 05-28-2019 Doc meds verified w/pt or re Ericka Muniz Start: 05-22-2019 Assay of prostate specific antigen total Ericka Muniz Start: 05-22-2019 Blood count complete automated Ericka Muniz Start: 05-22-2019 Comprehensive metabolic panel Ericka Muniz Start: 05-22-2019 Erythrocyte mean corpuscular volume determination Ericka Muniz Start: 05-22-2019 Lipid panel Ericka Muniz Start: 05-22-2019 Lipid panel Ericka Muniz Start: 05-22-2019 Prostate specific antigen measurement Ericka Muniz Start: 05-22-2019 Urinalysis, automated Ericka Muniz Start: 05-22-2019 Urnls dip stick/tablet rgnt auto w/o microscopy Ericka Muniz Start: 04-17-2019 Diabetic foot examination Edilberto Whatley r Start: 04-17-2019 Doc meds verified w/pt or re Edilberto torres Start: 04-13-2019 Assay of glutamyltrase gamma Ayden Scarb rough Start: 04-13-2019 Comprehensive metabolic panel Ayden Scar darlene Start: 04-13-2019 Gamma glutamyl transferase measurement Ericka Muniz Start: 04-13-2019 Hemoglobin A1c measurement Ericka Muniz Start: 04-13-2019 Hemoglobin glycosylated a1c Ayden Scarbr ough Start: 04-13-2019 MICROALBUMIN/Urine Creat Ratio Ayden Sca rbrough Start: 04-12-2019 Postoperative follow-up visit Ericka Muniz Start: 03-29-2019 Doc meds verified w/pt or re Ayden Scarb rough Start: 03-29-2019 Exc b9 lesion mrgn xcp sk tg t/a/l 2.1-3.0 cm Ayden Trudy Start: 03-29-2019 Excision of lesion of skin Ericka Muniz Start: 03-29-2019 Layer closure of wounds of extremities Ericka Muniz Start: 03-29-2019 Repair intermediate s/a/t/e 2.6-7.5 cm Ayden Trudy Start: 02-27-2019 Assay of prostate specific antigen total Edilberto Zamora Start: 02-27-2019 Blood count complete automated Edilberto michel Start: 02-27-2019 Comprehensive metabolic panel Edilberto pérez Start: 02-27-2019 Erythrocyte mean corpuscular volume determination Ericka Muniz Start: 02-27-2019 Hemoglobin A1c measurement Ericka Muniz Start: 02-27-2019 Hemoglobin glycosylated a1c Edilberto schmitt Start: 02-27-2019 Lipid panel Edilberto Zamora Start: 02-27-2019 Lipid panel Ericka Muniz Start: 02-27-2019 MICROALBUMIN/Urine Creat Ratio Edilberto doeder Start: 02-27-2019 Prostate specific antigen measurement Ericka Muniz Start: 02-26-2019 Doc meds verified w/pt or re Ayden Scarb rough Start: 02-26-2019 Skin Tag removal (SKNTG) Edilberto Sera Start: 01-25-2019 Doc meds verified w/pt or re Ericka Muniz Start: 01-02-2019 Medical nutrition re-assmt&ivntj indiv ea 15 m Edilberto Sera Start: 12-12-2018 Diabetic foot examination Edilberto Marekellie shah Start: 12-02-2018 Glucose measurement, quantitative Ericka F ox Start: 12-02-2018 Glucose quantitative blood xcpt reagent strip Edilberto Zamora Start: 12-02-2018 Hemoglobin A1c measurement Ericka Muniz Start: 12-02-2018 Hemoglobin glycosylated a1c Edilberto schmitt Start: 10-02-2018 Diabetic foot examination Edilberto shah Start: 10-02-2018 Doc meds verified w/pt or re Edilberto Jara eder Start: 09-26-2018 Medical nutrition re-assmt&ivntj indiv ea 15 m Ericka Muniz Start: 09-17-2018 Blood count complete automated Edilberto doeder Start: 09-17-2018 Erythrocyte mean corpuscular volume determination Ericka Muniz Start: 09-17-2018 Glucose measurement, quantitative Ericka F ox Start: 09-17-2018 Glucose quantitative blood xcpt reagent strip Ericka Muniz Start: 09-17-2018 Hemoglobin A1c measurement Ericka Muniz Start: 09-17-2018 Hemoglobin glycosylated a1c Ericka Muniz Start: 09-17-2018 Hepatic function panel Ericka Muniz Start: 09-17-2018 Hepatic function panel Ericka Muniz Start: 09-17-2018 Vitamin B12 and Folate Edilberto Zamora Start: 09-01-2018 Assay of prostate specific antigen total Edilberto Sera Start: 09-01-2018 Comprehensive metabolic panel Edilberto Richardson elisa Start: 09-01-2018 Hemoglobin A1c measurement Ericka Muniz Start: 09-01-2018 Hemoglobin glycosylated a1c Edilberto schmitt Start: 09-01-2018 Lipid panel Edilberto Zamora Start: 09-01-2018 Lipid panel Ericka Muniz Start: 09-01-2018 MICROALBUMIN/Urine Creat Ratio Edilberto Toni michel Start: 09-01-2018 Prostate specific antigen measurement Ericka Muniz Start: 08-30-2018 Doc meds verified w/pt or re Edilberto torres Start: 07-27-2018 Medical nutrition re-assmt&ivntj indiv ea 15 m Edilberto Sera Start: 06-19-2018 Diabetic foot examination Edilberto Phylicia shah Start: 06-19-2018 Doc meds verified w/pt or re Edilberto torres Start: 06-19-2018 Glucose measurement, quantitative Ericka F ox Start: 06-19-2018 Glucose quantitative blood xcpt reagent strip Edilberto Zamora Start: 06-19-2018 Hemoglobin A1c measurement Ericka Muniz Start: 06-19-2018 Hemoglobin glycosylated a1c Edilberto Theodore keshia Start: 04-20-2018 Medical nutrition re-assmt&ivntj indiv ea 15 m Ericka Muniz Start: 03-20-2018 Diabetic foot examination Edilberto Marekellie shah Start: 03-15-2018 Glucose measurement, quantitative Ericka F ox Start: 03-15-2018 Glucose quantitative blood xcpt reagent strip Ayden Yates Start: 03-15-2018 Hemoglobin A1c measurement Ericka Muniz Start: 03-15-2018 Hemoglobin glycosylated a1c Ayden Nehemiah ruth Start: 03-15-2018 MICROALBUMIN/Urine Creat Ratio Ayden lugo Start: 03-01-2018 Doc meds verified w/pt or re Edilberto Marek torres Start: 02-23-2018 Comprehensive metabolic panel Edilberto Richardson elisa Start: 02-23-2018 Hemoglobin A1c measurement Ericka Muniz Start: 02-23-2018 Hemoglobin glycosylated a1c Edilberto schmitt Start: 02-23-2018 Lipid panel Edilberto Sera Start: 02-23-2018 Lipid panel Ericka Muniz Start: 02-23-2018 MICROALBUMIN/Urine Creat Ratio Edilberto Toni anand Start: 01-18-2018 Medical nutrition re-assmt&ivntj indiv ea 15 m Ayden Trudy Start: 12-13-2017 Diabetic foot examination Edilberto Phylicia r Start: 12-13-2017 Doc meds verified w/pt or re Edilberto torres Start: 12-13-2017 Hepatic function panel Ericka Muniz Start: 12-13-2017 Hepatic function panel Ericka Muniz Start: 12-09-2017 Diab manage trn per indiv Ericka Muniz Start: 12-09-2017 Diabetes self-monitoring health education Ericka Muniz Start: 12-03-2017 Glucose measurement, quantitative Ericka F ox Start: 12-03-2017 Glucose quantitative blood xcpt reagent strip Edilberto Sera Start: 12-03-2017 Hemoglobin A1c measurement Ericka Muniz Start: 12-03-2017 Hemoglobin glycosylated a1c Edilberto Jaimes kesiha Start: 09-08-2017 Diab manage trn per indiv Edilberto Marekamiangelia r Start: 09-08-2017 Diabetes self-monitoring health education Ericka Muniz Start: 09-01-2017 Current Medications Verified MIPS Edilberto Sera Start: 08-25-2017 Alanine aminotransferase measurement Ericka Muniz Start: 08-25-2017 Aspartate aminotransferase measurement Ericka Muniz Start: 08-25-2017 Basic metabolic panel calcium total Edilberto Sera Start: 08-25-2017 Hemoglobin A1c measurement Ericka Muniz Start: 08-25-2017 Hemoglobin glycosylated a1c Edilberto Marekangelia keshia Start: 08-25-2017 Lipid panel Edilberto Sera Start: 08-25-2017 Lipid panel Ericka Muniz Start: 08-25-2017 MICROALBUMIN/Urine Creat Ratio Edilberto michel Start: 08-25-2017 Transferase alanine amino alt sgpt Edilberto Sera Start: 08-25-2017 Transferase aspartate amino ast sgot Edilberto Sera Start: 08-09-2017 Diab manage trn per indiv Edilberto Marekamiangelia r Start: 08-09-2017 Diabetes self-monitoring health education Ericka Muniz Start: 08-05-2017 Diabetic foot examination Edilberto Marekamiangelia r Start: 08-05-2017 Glucose measurement, quantitative Ericka F ox Start: 08-05-2017 Glucose quantitative blood xcpt reagent strip Edilberto Sera Start: 08-05-2017 Hemoglobin A1c measurement Ericka Muniz Start: 08-05-2017 Hemoglobin glycosylated a1c Edilberto Jaimes keshia Start: 08-01-2017 BS-Dip Edilberto Zamora Start: 06-27-2017 Doc meds verified w/pt or re Edilberto torres Start: 04-05-2017 Current Medications Verified MIPS Edilberto Zamora Start: 04-05-2017 Diabetic foot examination Edilberto Schroede r Start: 04-02-2017 Glucose measurement, quantitative Ericka F ox Start: 04-02-2017 Glucose quantitative blood xcpt reagent strip Edilberto Zamora Start: 04-02-2017 Hemoglobin A1c measurement Ericka Muniz Start: 04-02-2017 Hemoglobin glycosylated a1c Edilberto schmitt Start: 04-02-2017 MICROALBUMIN/Urine Creat Ratio Edilberto Toni michel Start: 03-29-2017 Dip UA (for Ketones) Edilberto Zamora Start: 03-01-2017 Doc meds verified w/pt or re Edilberto torres Start: 02-17-2017 Cv strs tst xers&/or rx cont ecg w/si&r Edilberto Zamora Start: 02-17-2017 Electrocardiogram with exercise test Ericka Muniz Start: 02-17-2017 Myocardial spect multiple studies Edilberto Zamora Start: 02-17-2017 Regadenoson injection Edilberto Zamora Start: 02-17-2017 [id number] sestamibi Edilberto Zamora Start: 02-09-2017 Doc meds verified w/pt or re Edilberto torres Start: 02-09-2017 Ecg routine ecg w/least 12 lds w/i&r Edilberto Zamoar Start: 12-01-2016 Glucose measurement, quantitative Ercika Coughlin ox Start: 12-01-2016 Glucose quantitative blood xcpt reagent strip Edilberto Zamora Start: 12-01-2016 Hemoglobin A1c measurement Ericka Muniz Start: 12-01-2016 Hemoglobin glycosylated a1c Edilberto Theodore keshia Start: 11-30-2016 Diabetic foot examination Edilberto Peggyangelia shah Start: 11-23-2016 Dip UA (for Ketones) Edilberto Zamora Start: 09-21-2016 Alanine aminotransferase measurement Ericka Muniz Start: 09-21-2016 Aspartate aminotransferase measurement Ericka Muniz Start: 09-21-2016 End: 09-21-2016 Basic metabolic panel calcium total Edilberto Zamora Start: 09-21-2016 Hemoglobin A1c measurement Ericka Muniz Start: 09-21-2016 Hemoglobin glycosylated a1c Edilberto Theodore keshia Start: 09-21-2016 Lipid panel Edilberto Zamora Start: 09-21-2016 Lipid panel Ericka Muniz Start: 09-21-2016 Transferase alanine amino alt sgpt Edilberto Zamora Start: 09-21-2016 Transferase aspartate amino ast sgot Edilberto Zamora Start: 09-21-2016 Basic metabolic panel calcium ionized Edilberto Zamora Start: 09-21-2016 Blood chemistry Ericka Muniz Start: 08-24-2016 MICROALBUMIN/Urine Creat Ratio Edilberto michel Start: 08-13-2016 Ankle brachial pressure index Ericka Muniz Start: 08-13-2016 Non-invas physiologic std extremity art 2 level Edilberto Zamora Start: 08-03-2016 Ankle brachial pressure index Ericka Muniz Start: 08-03-2016 Diabetic foot examination Edilberto shah Start: 08-03-2016 Non-invas physiologic std extremity art 2 level Edilberto Zamora Start: 07-30-2016 Assay of thyroid stimulating hormone tsh Edilberto Zamora Start: 07-30-2016 Assay of thyroxine total Edilberto Zamora Start: 07-30-2016 Basic metabolic panel calcium total Edilberto Zamora Start: 07-30-2016 Hemoglobin A1c measurement Ericka Muniz Start: 07-30-2016 Hemoglobin glycosylated a1c Edilberto Jaimes keshia Start: 07-30-2016 MICROALBUMIN/Urine Creat Ratio Edilberto michel Start: 07-30-2016 Thyroid stimulating hormone measurement Ericka Muniz Start: 07-30-2016 Thyroxine measurement Ericka Muniz Start: 07-27-2016 Basic metabolic panel calcium ionized Edilberto Zamora Start: 07-27-2016 Basic metabolic panel calcium total Edilberto Zamora Start: 07-27-2016 Blood chemistry Ericka Muniz Start: 07-27-2016 Dip UA (for Ketones) Edilberto Zamora Start: 03-30-2016 Diabetic foot examination Edilberto shah Start: 03-20-2016 Alanine aminotransferase measurement Ericka Muniz Start: 03-20-2016 Aspartate aminotransferase measurement Ericka Muniz Start: 03-20-2016 Basic metabolic panel calcium total Edilberto Zamora Start: 03-20-2016 Hemoglobin A1c measurement Ericka Muniz Start: 03-20-2016 Hemoglobin glycosylated a1c Edilberto Jaimes keshia Start: 03-20-2016 Lipid panel Edilberto Zamora Start: 03-20-2016 Lipid panel Ericka Muniz Start: 03-20-2016 Transferase alanine amino alt sgpt Edilberto Zamora Start: 03-20-2016 Transferase aspartate amino ast sgot Edilberto Zamora Start: 03-04-2016 Basic metabolic panel calcium total Edilberto Zamora Start: 03-04-2016 Hemoglobin A1c measurement Ericka Muniz Start: 03-04-2016 Hemoglobin glycosylated a1c Edilberto Jaraangelia keshia Start: 12-05-2015 Assay of thyroid stimulating hormone tsh Edilberto Zamora Start: 12-05-2015 Assay of thyroxine total Edilberto Zamora Start: 12-05-2015 Glucose measurement, quantitative Ericka F ox Start: 12-05-2015 Glucose quantitative blood xcpt reagent strip Edilberto Zamora Start: 12-05-2015 Hemoglobin A1c measurement Ericka Muniz Start: 12-05-2015 Hemoglobin glycosylated a1c Edilberto schmitt Start: 12-05-2015 MICROALBUMIN/Urine Creat Ratio Edilberto michel Start: 12-05-2015 Thyroid stimulating hormone measurement Ericka Muniz Start: 12-05-2015 Thyroxine measurement Ericka Muniz Start: 11-18-2015 End: 11-18-2015 Digital analysis electroencephalogram Edilberto Zamora Start: 11-18-2015 Electroencephalographic procedure Ericka F ox Start: 11-05-2015 Cortisol measurement Ericka Muniz Start: 11-05-2015 Cortisol total Edilberto Zamora Start: 11-05-2015 Diabetic foot examination Edilberto shah Start: 11-03-2015 Basic metabolic panel calcium total Edilberto Zamora Start: 11-03-2015 Hemoglobin A1c measurement Ericka Muniz Start: 11-03-2015 Hemoglobin glycosylated a1c Edilberto schmitt Start: 11-03-2015 MICROALBUMIN/Urine Creat Ratio Edilberto michel Start: 10-03-2015 Assay of c-peptide Edilberto Zamora Start: 10-03-2015 Basic metabolic panel calcium total Edilberto Zamoar Start: 10-03-2015 Cortisol measurement Ericka Muniz Start: 10-03-2015 Cortisol total Edilberto Zamora Start: 10-03-2015 Diab manage trn per indiv Edilberto Phylicia judy Start: 10-03-2015 Diabetes self-monitoring health education Ericka Muniz Start: 10-03-2015 Diabetic foot examination Edilberto shah Start: 10-03-2015 Glucose measurement, quantitative Ericka F ox Start: 10-03-2015 Glucose quantitative blood xcpt reagent strip Edilberto Zamora Start: 10-03-2015 Insulin C-peptide measurement Ericka Muniz Start: 09-29-2015 Medical nutrition assmt&ivntj indiv each 15 mi Edilberto Sera Start: 09-29-2015 Therapeutic prophylactic/dx injection subq/im Edilberto Sera Start: 09-24-2015 Unlisted pulmonary service/procedure Edilberto Sera Start: 08-26-2015 Allergen spec ige crude allergen extract each Edilberto Sera Start: 08-26-2015 Assay of gammaglobulin ige Edilberto Schroed er Start: 08-26-2015 Blood count complete auto&auto difrntl wbc Edilberto Zamora Start: 08-26-2015 Complete blood count Ericka Muniz Start: 08-26-2015 Erythrocyte sedimentation rate, non-automated Ericka Muniz Start: 08-26-2015 Immunoglobulin E measurement Ericka Muniz Start: 08-26-2015 Sedimentation rate rbc non-automated Edilberto Zamora Start: 08-12-2015 Pulmonart Consult Edilberto Zamora Start: 08-05-2015 Cv strs tst xers&/or rx cont ecg w/si&r Edilberto Zamora Start: 08-05-2015 Electrocardiogram with exercise test Ericka Muniz Start: 08-05-2015 Myocardial spect multiple studies Edilberto Zamora Start: 08-05-2015 Regadenoson injection Edilberto Zamora Start: 08-05-2015 Tc99m sestamibi Edilberto Zamora Start: 08-04-2015 Alanine aminotransferase measurement Ericka Muniz Start: 08-04-2015 Aspartate aminotransferase measurement Ericka Muniz Start: 08-04-2015 Basic metabolic panel calcium total Edilberto Zamora Start: 08-04-2015 Hemoglobin A1c measurement Ericka Mnuiz Start: 08-04-2015 Hemoglobin glycosylated a1c Edilberto schmitt Start: 08-04-2015 Lipid panel Edilberto Zamora Start: 08-04-2015 Lipid panel Ericka Muniz Start: 08-04-2015 MICROALBUMIN/Urine Creat Ratio Edilberto Toni michel Start: 08-04-2015 Transferase alanine amino alt sgpt Edilberto Zamora Start: 08-04-2015 Transferase aspartate amino ast sgot Edilberto Zamora Start: 07-24-2015 Chest x-ray Edilberto Zamora Start: 07-24-2015 Ecg routine ecg w/least 12 lds w/i&r Edilberto Zamora Plan of Treatment Date Care Activity Detail Author Start: 01-25-2023 Assay of prostate specific antigen total PSA, total [facility] Start: 01-25-2023 Blood count complete automated CBC PLATELET COUNT; AUTOMATED [facility] Start: 01-25-2023 Comprehensive metabolic panel CMP [facility] Start: 01-24-2023 Glucose quantitative blood xcpt reagent strip GLUCOSE [facility] Start: 01-24-2023 Hemoglobin glycosylated a1c HEMOGLOBIN A1C [facility] Start: 01-24-2023 Lipid panel Lipid profile [facility] Start: 01-24-2023 Transferase alanine amino alt sgpt SGPT (ALT) [facility] Start: 10-11-2022 ambulatory Ambulatory Facility:[facility] Start: 07-21-2022 25 hydroxy includes fractions if performed VITAMIN D 25-HYDROXY [facility] Start: 07-21-2022 Assay of parathormone PTH-INTACT [facility] Start: 07-21-2022 Comprehensive metabolic panel CMP (comprehensive metabolic panel) [facility] Start: 07-21-2022 Hemoglobin glycosylated a1c HEMOGLOBIN A1C [facility] Start: 07-19-2022 Lipid panel Lipid panel [facility] Start: 05-04-2022 X-ray of left ankle ANKLE COMPLETE X-RAY 3 VIEWS [facility] Start: 04-22-2022 MR Foot - right WO and W contrast IV [facility] Start: 04-22-2022 MRI of right foot with contrast MR foot RT wo/w [facility] Start: 04-21-2022 MR Ankle - right WO and W contrast IV [facility] Start: 04-21-2022 MRI of right ankle with contrast MR ankle RT wo/w [facility] Start: 04-05-2022 Assay of lactate Lactic acid serum [facility] Start: 04-05-2022 Blood count complete auto&auto difrntl wbc CBC w diff [facility] Start: 04-05-2022 C-reactive protein CRP [facility] Start: 04-05-2022 Comprehensive metabolic panel CMP [facility] Start: 04-05-2022 MRI of lower extremity MRI ankle and foot [facility] Start: 04-05-2022 Sedimentation rate rbc non-automated ESR non-auto [facility] Start: 04-01-2022 Duplex scan of lower limb veins US venous duplex LE RT [facility] Start: 04-01-2022 US Lower extremity vein - right [facility] Work Phone: Start: 03-16-2022 X-ray of left ankle ANKLE COMPLETE X-RAY 3 VIEWS [facility] Start: 03-16-2022 X-ray of left foot FOOT COMPLETE X-RAY 3 VIEWS [facility] Start: 02-17-2022 Assay of prostate specific antigen total PSA total [facility] Start: 02-17-2022 Comprehensive metabolic panel Comp [facility] Start: 02-17-2022 Hemoglobin glycosylated a1c A1c [facility] Start: 02-17-2022 Lipid panel Lipid panel [facility] Start: 01-01-2022 Assay of glutamyltrase gamma GAMMA GT [facility] Start: 01-01-2022 Blood count complete automated CBC PLATELET COUNT; AUTOMATED [facility] Start: 01-01-2022 Comprehensive metabolic panel CMP (comprehensive metabolic panel) [facility] Start: 01-01-2022 Hemoglobin glycosylated a1c HEMOGLOBIN A1C [facility] Start: 09-17-2021 Cul bact xcpt urine blood/stool aerobic isol Wound culture and sensitivity [facility] Start: 09-17-2021 Dup-scan lxtr art/artl bpgs uni/lmtd study MARGA w/ segmental pressures and waveforms [facility] Start: 09-17-2021 Non-invas physiologic std extremity art 2 level MARGA w/ segmental pressures and waveforms [facility] Start: 09-17-2021 Non-invasive physiologic study extremity 3 levls MARGA w/ segmental pressures and waveforms [facility] Start: 09-17-2021 Plain X-ray of toe TOES X-RAY 2-3 VIEWS [facility] Start: 08-18-2021 Blood count complete automated CBC & PLATELET COUNT; AUTOMATED [facility] Start: 08-18-2021 Comprehensive metabolic panel CMP (comprehensive metabolic panel) [facility] Start: 08-18-2021 Hemoglobin glycosylated a1c A1c [facility] Start: 08-18-2021 Lipid panel LIPID PROFILE [facility] Start: 07-19-2021 Assay of glutamyltrase gamma GAMMA GT [facility] Start: 07-19-2021 Basic metabolic panel calcium total Chem 8 [facility] Start: 07-19-2021 Hemoglobin glycosylated a1c HEMOGLOBIN A1C [facility] Start: 06-24-2021 Blood count complete automated CBC PLATELET COUNT; AUTOMATED [facility] Start: 06-24-2021 Comprehensive metabolic panel Comp [facility] Start: 06-24-2021 Hemoglobin glycosylated a1c A1c [facility] Start: 06-24-2021 Lipid panel Lipid panel [facility] Start: 03-12-2021 Assay of parathormone PTH-INTACT [facility] Start: 03-12-2021 Assay of phosphorus inorganic Phosphorus, serum [facility] Start: 03-12-2021 Blood count complete automated CBC PLATELET COUNT; AUTOMATED [facility] Start: 03-12-2021 Comprehensive metabolic panel CMP (comprehensive metabolic panel) [facility] Start: 03-12-2021 HbA1c (Bld) [Mass fraction] HEMOGLOBIN A1C [facility] Start: 03-12-2021 Hemoglobin glycosylated a1c HEMOGLOBIN A1C [facility] Start: 12-25-2020 Creatinine measurement Creatinine monitoring [facility] [place] Start: 12-25-2020 Potassium monitoring Potassium monitoring [facility] [place] Start: 12-23-2020 Assay of prostate specific antigen total PSA total [facility] Start: 08-08-2020 Comprehensive metabolic panel CMP (comprehensive metabolic panel) [facility] Start: 08-08-2020 HbA1c (Bld) [Mass fraction] HEMOGLOBIN A1C [facility] Start: 03-28-2020 Glucose quantitative blood xcpt reagent strip GLUCOSE 2 HR Post Prandial [facility] Start: 03-28-2020 HbA1c (Bld) [Mass fraction] HEMOGLOBIN A1C [facility] Start: 03-28-2020 Hepatic function panel LFT (liver function test) [facility] Start: 03-24-2020 Annual Wellness Visit (AWV) [facility] JACQUELINE TORRES Start: 03-11-2020 Influ[facility] JACQUELINE TORRES Start: 12-28-2019 End: 12-28-2019 Hospital Encounter [facility] Comment on above: SHOULDER ARTHROSCOPY ROTATOR CUFF REPAIR, POSSIBLE BICEPS TENDONDESIS Start: 12-28-2019 End: 12-28-2019 Hospital Encounter [facility] Comment on above: SHOULDER ARTHROSCOPY ROTATOR CUFF REPAIR, POSSIBLE BICEPS TENDONDESIS Start: 12-27-2019 Basic metabolic pane l calcium total Chem 8 [facility] Start: 12-27-2019 HbA1c (Bld) [Mass fraction] HEMOGLOBIN A1C [facility] Start: 11-27-2019 Comprehensive metabolic panel Comp [facility] Start: 11-27-2019 HbA1c (Bld) [Mass fraction] A1c [facility] Start: 11-27-2019 Lipid panel Lipid panel [facility] Start: 08-28-2019 Basic metabolic pane l calcium total Chem 8 [facility] Start: 08-18-2019 Basic metabolic pane l calcium total Chem 8 [facility] Start: 08-18-2019 Gamma glutamyl transferase [Catalytic activity/Vol] GGT [facility] Start: 08-18-2019 HbA1c (Bld) [Mass fraction] HEMOGLOBIN A1C [facility] Start: 05-22-2019 Assay of prostate specific antigen total PSA total [facility] Start: 05-22-2019 Blood count complete automated CBC & PLATELET COUNT; AUTOMATED [facility] Start: 05-22-2019 Comprehensive metabolic panel Comprehensive metabolic panel [facility] Start: 05-22-2019 Lipid panel Lipid panel [facility] Start: 05-22-2019 Urnls dip stick/tabl et rgnt auto w/o microscopy Urinalysis auto [facility] Start: 04-17-2019 Im adm prq id subq/i m njxs 1 vaccine Administration of single vaccine [facility] Start: 04-13-2019 Assay of glutamyltra se gamma GAMMA GT [facility] Start: 04-13-2019 Comprehensive metabolic panel CMP (comprehensive metabolic panel) [facility] Start: 04-13-2019 Hemoglobin A1c/Hemoglobin.total mass fraction (Bld) HEMOGLOBIN A1C [facility] Start: 02-27-2019 Assay of prostate specific antigen total PSA total [facility] Start: 02-27-2019 Blood count complete automated CBC & PLATELET COUNT; AUTOMATED [facility] Start: 02-27-2019 Comprehensive metabolic panel Comprehensive metabolic panel [facility] Start: 02-27-2019 Hemoglobin A1c/Hemoglobin.total mass fraction (Bld) Hgb A1c [facility] Start: 02-27-2019 Lipid panel Lipid panel [facility] Start: 01-02-2019 Medical nutrition re-assmt&ivntj indiv ea 15 m Medical nutrition therapy; re-assessment and intervention, individual, [id number] with the patient, each 15 minutes [facility] Start: 09-26-2018 Medical nutrition re-assmt&ivntj indiv ea 15 m Medical nutrition therapy; re-assessment and intervention, individual, [id number] with the patient, each 15 minutes [facility] Start: 09-17-2018 Glucose mass conc GLUCOSE [facility] Start: 09-17-2018 Hemoglobin A1c/Hemoglobin.total mass fraction (Bld) HEMOGLOBIN A1C [facility] Start: 09-17-2018 Hepatic function panel Liver functio n panel [facility] Start: 07-27-2018 Medical nutrition re-assmt&ivntj indiv ea 15 m Medical nutrition therapy; re-assessment and intervention, individual, [id number] with the patient, each 15 minutes [facility] Start: 04-20-2018 Medical nutrition re-assmt&ivntj indiv ea 15 m Medical nutrition therapy; re-assessment and intervention, individual, ocvv-[id number] with the patient, each 15 minutes [facility] Start: 03-15-2018 Glucose mass conc GLUCOSE [facility] Start: 03-15-2018 Hemoglobin A1c/Hemoglobin.total mass fraction (Bld) HEMOGLOBIN A1C [facility] Start: 01-18-2018 Medical nutrition re-assmt&ivntj indiv ea 15 m Medical nutrition therapy; re-assessment and intervention, individual, [id number]-[id number] with the patient, each 15 minutes [facility] Start: 12-13-2017 Hepatic function panel Liver functio n panel [facility] Start: 2014 Screening for malignant neoplasm of colon Colon cancer screen colonoscopy [place], [place] Start: 2014 Shingles Vaccine (1 of 2) Shingles Vaccine (1 of 2) [place], [place] Start: 2004 Diabetes screen [facility] screen [place] Start: 11-11-1983 DTaP/Tdap/Td vaccine (1 - Tdap) DTaP/Tdap/Td vaccine (1 - Tdap) [place], [place] Start: 11-11-1979 HIV screening [facility] screen [facility] [place] [place] Start: 1974 Lipid panel [facility] screen [facility] [place] [place] Start: 1970 Pneumococcal 0-64 years Vaccine (1 of 1 - PPSV23) Pneumococcal 0-64 years Vaccine (1 of 1 - PPSV23) [place], [place] Start: 1964 Creatinine measurement Creatinine mo nitoring [place], [place] Start: 1964 Hepatitis C screening Hepatitis C sc reen [place], [place] Start: 1964 Potassium monitoring Potassium monit oring [place], [place] Initiate Oxygen Therapy Protocol Initiate Oxygen Therapy Protocol Respiratory Care Routine Daily until discontinued starting 12/28/2019 [place], [place] Comment on above: Daily until disconti nued starting 12/28/2019 Patient Education Foot Fracture ED Minor Skin Adame ED [facility] Work Phone: Patient referral [facility] Work Phone: Phase I & II - meter ed glucose Phase I & II - metered glucose Point of Care Testing Routine As Needed until discontinued starting 12/28/2019 [place], [place] Comment on above: As Needed until disc ontinued starting 12/28/2019 SNORING AND OBESITY [facility] Immunizations Immunization Date Immunization Notes Care Provider Milla wolf 04-28-2022 COVID-19, Pfizer, 30mcg/0.3ml Edilberto Chu Shu 04-28-2022 influenza, injectabl e, quadrivalent, contains preservative Edilberto Chu Shu 12-05-2021 hepatitis A and hepatitis B vaccine Franky [facility] 10-19-2021 hepatitis B vaccine, adult dosage Franky Turpin [facility] 10-19-2021 zoster vaccine, live Franky [facility]ton 06-15-2021 COVID-19, Moderna, 100mcg/0.5ml [facility] 10-14-2020 COVID-19, Moderna, 100mcg/0.5ml [facility] 09-12-2020 COVID-19, Moderna, 100mcg/0.5ml Intervention [facility] 04-08-2020 influenza virus vacc ine, unspecified formulation; Translations: [Administration of influenza virus vaccine] [facility] 04-08-2020 influenza, high dose seasonal, preservative-free; Translations: [FLU VACC PRSV FREE INC ANTIG] [facility]Livelynchard [employer] [facility] 04-17-2019 influenza, injectabl e, quadrivalent, contains preservative; Translations: [FLU VACC 4 FRANCISCO 3 YRS PLUS IM] Ready To Travel 04-17-2019 influenza, seasonal, injectable [employer] 04-17-2019 IMMUNIZATION ADMIN; Translations: [IMMUNIZATION ADMIN] Ready To Travel 04-20-2018 influenza, seasonal, injectable; Translations: [FLU VACCINE 3 YRS & > IM] Ready To Travel 04-20-2018 IMMUNIZATION ADMIN; Translations: [IMMUNIZATION ADMIN] Ready To Travel 04-05-2017 influenza, seasonal, injectable; Translations: [FLU VACCINE 3 YRS & > IM] Ready To Travel 04-05-2017 IMMUNIZATION ADMIN; Translations: [IMMUNIZATION ADMIN] Edilberto Chu Shu 03-31-2016 influenza, seasonal, injectable; Translations: [FLU VACCINE 3 YRS & > IM] Edilberto Chu Shu 03-31-2016 IMMUNIZATION ADMIN; Translations: [IMMUNIZATION ADMIN] Edilberto Chu Shu Payers Date Payer Category Payer Self-pay 2020 Medicaid 2020 Unknown 2019 Medicare [id number] 2015 Unknown [id number] [id number] 2015 Unknown [facility] MEDICAID xxxxxxxxxxx 2015-Present [phone] CLAIMS DEPARTMENT [address] [place] [address] xxxxxxxxxxx [id number] 2014 Unknown [id number] 1964 Unknown [id number] [id number] 1964 Unknown [id number] [id number]3 1964 Unknown [id number] [id number] 1964 Unknown [id number] 2.16.840.1.392621.3.579.2.173 1964 Unknown [id number] 2.16.840.1.798593.3.579.2.173 1964 Unknown [id number] 2.16.840.1.508595.3.579.2.173 1964 Unknown [id number] 2.16.840.1.761902.3.579.2.173 1964 Unknown [id number] 2.16.840.1.675090.3.579.2.196 1964 Unknown [id number] 2.16.840.1.843681.3.579.2.196 1964 Unknown [id number] 2.16.840.1.540545.3.579.2.196 1964 Unknown [id number] 2.16.840.1.745249.3.579.2.593 1964 Unknown [id number] 2.16.840.1.272556.3.579.2.593 1964 Unknown [id number] 2.16.840.1.011568.3.579.2.593 1959 Medicaid [id number] [id number] 1959 Unknown [id number] [id number] Unknown Daniel / [id number] Unknown [id number] [id number] Unknown [id number] 2.840.1.073280.3.579.2.531 Unknown [id number] 2.840.1.833181.3.579.2.531 Unknown [id number] 2.16840.1.376586.3.579.2.531 Unknown [id number] [id number] Social History Date Type Detail Facility Start: [facility] Start: 1-2 cups a day [facility] Start: 12-18-2019 End: 01-01-2020 Tobacco smoking status NHIS Current every day smoker [place], [place] History of tobacco use Cigarette Smoker M denzel [facility] JACQUELINE Start: 12-18-2019 End: 01-01-2020 Cigarettes smoked current (pack per day) - Reported [facility] JACQUELINE Start: 12-18-2019 End: 01-01-2020 Alcohol intake Current drinker of alcohol (finding) [place], [place] Start: 12-17-2019 Alcohol Comment 3X WEEKLY [place] Sex Assigned At Not on file [place] Exposure to SARS-CoV -2 (event) Unable to assess [place] Start: 01-01-2020 Tobacco use and exposure Never used [place], [place] Exposure to SARS-CoV -2 (event) Not sure [place] Start: *Tobacco [facility] Start: 04-01-2022 End: 05-27-2022 Tobacco smoking status NHIS Smoker (finding) [facility] Start: 1965 Sex Assigned At Male F [facility] Tobacco smoking status No Smokin g Status Entered [facility] Sex Assigned At Male [facility] Medical Equipment Procedure Code Equipment Code Equipment Origin al Text Equipment Identifier Dates Alpine Sut Corks crew Biocomposite 5.5mm [id number] Start: 12-28-2019 Alpine Suture Swivelock 4.75x19.1 Biocomposite Min 5ea [id number] Start: 12-28-2019 Button Endoscopi c Bicep 2.6x12mm [id number] Start: 12-28-2019 Clinical Notes 10-14-2021 to 07-28-2022 Note Date & Type Note Facility 07-28-2022 Note PROCEDURE: XR ANKLE RT MIN 3 VIEWS, XR FOOT RT MIN 3 VIEWS COMPARISON: 06/23/2022 HISTORY: Pain of right ankle joint FINDINGS: BONES:Plantar rotation and displacement of the hindfoot in relation to the midfoot with the dorsal talus inferiorly displaced 1.7 cm in relation to the navicular . Stable from the prior exam. Mild enthesopathic spurring of the calcaneus. Lateral subluxation of the fifth metatarsal relation to the cuboid. Heterotopic ossification/bone fragment along the anterior ankle joint. Underlying degenerative changes with joint space narrowing SOFT TISSUES:Soft tissue swelling EFFUSION:None visible. OTHER: Negative. IMPRESSION: Stable severe degenerative changes with plantar rotation and displacement of the hindfoot in relation to the midfoot Electronically authenticated by: SASHA FLAHERTY Date: 2022-07-28 16:42 [facility] 07-28-2022 Note PROCEDURE: XR ANKLE RT MIN 3 VIEWS, XR FOOT RT MIN 3 VIEWS COMPARISON: 06/23/2022 HISTORY: Pain of right ankle joint FINDINGS: BONES:Plantar rotation and displacement of the hindfoot in relation to the midfoot with the dorsal talus inferiorly displaced 1.7 cm in relation to the navicular . Stable from the prior exam. Mild enthesopathic spurring of the calcaneus. Lateral subluxation of the fifth metatarsal relation to the cuboid. Heterotopic ossification/bone fragment along the anterior ankle joint. Underlying degenerative changes with joint space narrowing SOFT TISSUES:Soft tissue swelling EFFUSION:None visible. OTHER: Negative. IMPRESSION: Stable severe degenerative changes with plantar rotation and displacement of the hindfoot in relation to the midfoot Electronically authenticated by: SASHA FLAHERTY Date: 2022-07-28 16:42 [facility] 06-24-2022 Note PROCEDURE: XR ANKLE RT MIN 3 VIEWS, XR FOOT RT MIN 3 VIEWS HISTORY: Pain of right ankle joint COMPARISON: XR foot right 04/01/2022 FINDINGS: BONES:Partial disruption of the talonavicular joint with plantar rotation of the anterior articular surface of the talus in relation to the navicular bone. Plantar displacement/dislocation of the cuboid. Widening of the first-second metatarsal joint space and lateral displacement of the fifth metatarsal in relation to the cuboid. SOFT TISSUES:No visible soft tissue swelling. EFFUSION:None visible. OTHER: Negative. IMPRESSION: 1. Grossly stable disruption of the midfoot most compatible with Charcot joint. 2. Unremarkable ankle joint. Electronically authenticated by: TESS JHAVERI Date: 2022-06-24 06:20 [facility] 06-24-2022 Note PROCEDURE: XR ANKLE RT MIN 3 VIEWS, XR FOOT RT MIN 3 VIEWS HISTORY: Pain of right ankle joint COMPARISON: XR foot right 04/01/2022 FINDINGS: BONES:Partial disruption of the talonavicular joint with plantar rotation of the anterior articular surface of the talus in relation to the navicular bone. Plantar displacement/dislocation of the cuboid. Widening of the first-second metatarsal joint space and lateral displacement of the fifth metatarsal in relation to the cuboid. SOFT TISSUES:No visible soft tissue swelling. EFFUSION:None visible. OTHER: Negative. IMPRESSION: 1. Grossly stable disruption of the midfoot most compatible with Charcot joint. 2. Unremarkable ankle joint. Electronically authenticated by: TESS JHAVERI Date: 2022-06-24 06:20 [facility] 05-05-2022 Progress note Note Date/Time May 05, 2022 2:50pm [facility] [address] [place] [address] Wound Center Provider Note Signed Patient: Geremias Melchor MR#: [id number] : 1965 Acct:[id number] Age/Sex: 56 / M Copies to: NON STAFF Fariha Novak APRN~ HPI Date of Visit Date of Visit: Date of Service: 05/05/2022 Time of Service: 14:47 Narrative HPI: 04/14/22 Geremias is a 56-year-old male presenting to [facility] wound care program for an initial visit for evaluation and treatment of thermal burn wounds to his bilateral feet that are d/t his diabetic neuropathy. He believes that these began sometime in March and says something about the concrete being too hot. Geremias is diabetic, possibly for over 20 years he says, and he does have neuropathy and has no sensation in the lower legs. Geremias was taught the dressings of the Vashe Cleanser and collagen silver and he was provided with a list of lotions to help with callus and fissures on his feet. He is not per se happy with his emergency medicine physician assistant in [place] and therefore I did give him the name of a local emergency medicine physician assistant who could address his concerns with Charcot foot in the right foot as well as other podiatric concerns. Healing will depend greatly on his diabetic control, he tells me his A1c is approximately 6.4 or 6.5, offloading these areas, having a nutritious diet that is higher in protein and amino acids and low in inflammation, having adequate arterial blood flow, quitting or reducing tobacco usage, as well as controlling and treating any infections that may arise. I do not see any signs of infection today. 05/04/22 3 of the 4 ulcers are healed, he saw Dr. Crowe and he was molded/cast for a shoe yesterday, he was also referred to [facility] for the Charcot and will see him soon, I did stress the importance of following with Netta as Charcot is a very serious condition- he stated understanding Subjective Pain Left Foot: Pain Intensity: 0 Right Foot: Pain Intensity: 0 Wound/Ulcer History When did wound start?: March 2022 Mode of Arrival/ Nurse First Assist: Personal vehicle Lives with:: Alone Appetite Description: Within Normal Limits Who helps w/ dressing change?: Self Smoking Status: Current every day smoker PMFSH Vaccinated for COVID-19?: Yes Medical History (Updated 05/05/22 @ 14:49 by Fariha Novak APRN) Diabetes Hyperlipidemia Hypertension Neuropathy Surgical History H/O hernia repair Family History (Updated 04/14/22 @ 14:36 by Jennifer Hitchcock RN) Family/Other Diabetes Social History Smoking Status: Current every day smoker Tobacco Type: cigarettes Substance Use Type: Marijuana Grafts History of Graft History of Graft?: No Exam Physical Exam Vital Signs: Temp Pulse Resp BP O2 Del Method 97.9 F 106 H 18 153/82 H Room Air 05/05/22 14:36 05/05/22 14:36 05/05/22 14:36 05/05/22 14:36 05/05/22 14:36 Const General: cooperative, comfortable and no acute distress Nutritional Appearance: overweight Orientation: alert, awake and oriented x3 Lower/Upper Extremity Exam Vascular Exam-Pulses Left Brachial: Pulse Assessment Method: NIBP Objective Meds/Allergies Home Medications alprazolam 1 mg tablet 1 mg PO TID PRN Anxiety 04/14/22 [History Confirmed 04/14/22] aspirin 81 mg capsule 81 mg PO DAILY 04/14/22 [History Confirmed 04/14/22] atorvastatin 10 mg tablet 10 mg PO QHS 04/14/22 [History Confirmed 04/14/22] doxepin 50 mg capsule 50 mg PO QHS 04/14/22 [History Confirmed 04/14/22] empagliflozin 25 mg tablet (Jardiance) 25 mg PO DAILY 04/14/22 [History Confirmed 04/14/22] furosemide 20 mg tablet 20 mg PO DAILY 04/14/22 [History Confirmed 04/14/22] gabapentin 800 mg tablet 800 mg PO TID 04/14/22 [History Confirmed 04/14/22] insulin glargine 100 unit/mL (3 mL) subcutaneous pen (Lantus Solostar U-100 Insulin) 25 unit subcut QAM 04/14/22 [History Confirmed 04/14/22] insulin lispro 100 unit/mL subcutaneous pen 12 unit subcut TID 04/14/22 [History Confirmed 04/14/22] lisinopril 5 mg tablet 5 mg PO DAILY 04/14/22 [History Confirmed 04/14/22] meloxicam 15 mg tablet 15 mg PO DAILY 04/14/22 [History Confirmed 04/14/22] metformin 500 mg tablet 500 mg PO TID 04/14/22 [History Confirmed 04/14/22] metoprolol succinate 25 mg tablet,extended release 24 hr 25 mg PO DAILY 04/14/22[History Confirmed 04/14/22] omega-3 fatty acids 1,000 mg PO DAILY 04/14/22 [History Confirmed 04/14/22] omeprazole 20 mg tablet,delayed release 20 mg PO DAILY 04/14/22 [History Confirmed 04/14/22] Allergies No Known Allergies Allergy (Verified 04/14/22 14:17) Wound/Ulcer Left Toe - 2nd Digit: Type: Diabetic Ulcer Diabetic Ulcer Grading: Superficial ulcer of skin w/o penetration to deeper layers Length (cm): 0 Width (cm): 0 Depth (cm): 0 CM Sq: 0.000 Surrounding Tissue Appearance: Callous Surrounding Tissue Temp: Warm Drainage Amount: None Drainage Odor: No Odor Left Plantar Great Toe: Type: Diabetic Ulcer Diabetic Ulcer Grading: Superficial ulcer of skin w/o penetration to deeper layers Bed Appearance: Beefy Red, Epithelial Tissue or Bridge, [place] and Yellow Percent of Wound Bed Granulated/Red: 90 Percent of Devitalized: 10 Length (cm): 2.0 Width (cm): 1.5 Depth (cm): 0.1 CM Sq: 3.000 Surrounding Tissue Appearance: Callous Surrounding Tissue Temp: Warm Drainage Amount: Small Drainage Description: Serosanguineous Drainage Odor: No Odor Right Plantar Great Toe: Type: Diabetic Ulcer Diabetic Ulcer Grading: Superficial ulcer of skin w/o penetration to deeper layers Length (cm): 0 Width (cm): 0 Depth (cm): 0 CM Sq: 0.000 Surrounding Tissue Appearance: Callous Surrounding Tissue Temp: Warm Drainage Amount: None Drainage Odor: No Odor Right Posterior Heel: Type: Diabetic Ulcer Diabetic Ulcer Grading: Superficial ulcer of skin w/o penetration to deeper layers Length (cm): 0 Width (cm): 0 Depth (cm): 0 CM Sq: 0.000 Surrounding Tissue Appearance: Hyperpigmented Surrounding Tissue Temp: Warm Drainage Amount: None Drainage Odor: No Odor Results Height: 6 ft Weight: 81.647 kg Body Mass Index: 24.4 Assessment/Plan Assessment/Plan (1) Diabetic foot ulcer: Assessment/Problem Details: rt great toe lt great toe rt heel lt 2nd toe thermal adame but d/t diabetic neuropathy Qualifiers: Diabetes mellitus type: type 2 Non-pressure ulcer stage: limited to breakdown of skin Code(s): E11.621 - Type 2 diabetes mellitus with foot ulcer; L97.509 - Non-pressure chronic ulcer of other part of unspecified foot with unspecified severity Status: Chronic (2) Diabetes: Code(s): E11.9 - Type 2 diabetes mellitus without complications Status: Chronic (3) Neuropathy: Assessment/Problem Details: ble d/t diabetes Code(s): G62.9 - Polyneuropathy, unspecified Status: Chronic (4) Tobacco use: Code(s): Z72.0 - Tobacco use Status: Chronic (5) Charcot foot due to diabetes mellitus: Code(s): E11.610 - Type 2 diabetes mellitus with diabetic neuropathic arthropathy Status: Suspected (6) Hyperlipidemia: Code(s): E78.5 - Hyperlipidemia, unspecified Status: Chronic Time spent with patient Time Spent With Patient (min): 15 Dictated By: Fariha Novak APRN DD/ 46 Signed By: <Electronically signed by RADHA Novak> 05/05/22 1450 [facility] Work Phone: [phone]) 351-708610-05-2022 Progress note Author Fariha Novak [facility] April 14, 2022 2:46pm Note Date/Time April 14, 2022 2: 46pm [address] [place] [address] Wound Center Provider Note Signed Patient: Geremias Melchor MR#: [id number] : 1965 Acct:[id number] Age/Sex: 56 / M Copies to: NON STAFF Fariha Novak APRN~ HPI Date of Visit Date of Visit: Date of Service: 04/14/2022 Time of Service: 14:37 Narrative HPI: 04/14/22 Geremias is a 56-year-old male presenting to [facility] wound care program for an initial visit for evaluation and treatment of thermal burn wounds to his bilateral feet that are d/t his diabetic neuropathy. He believes that these began sometime in March and says something about the concrete being too hot. Geremias is diabetic, possibly for over 20 years he says, and he does have neuropathy and has no sensation in the lower legs. Geremias was taught the dressings of the Vashe Cleanser and collagen silver and he was provided with a list of lotions to help with callus and fissures on his feet. He is not per se happy with his emergency medicine physician assistant in [place] and therefore I did give him the name of a local emergency medicine physician assistant who could address his concerns with Charcot foot in the right foot as well as other podiatric concerns. Healing will depend greatly on his diabetic control, he tells me his A1c is approximately 6.4 or 6.5, offloading these areas, having a nutritious diet that is higher in protein and amino acids and low in inflammation, having adequate arterial blood flow, quitting or reducing tobacco usage, as well as controlling and treating any infections that may arise. I do not see any signs of infection today. Subjective Pain Left Foot: Pain Intensity: 0 Right Foot: Pain Intensity: 0 Wound/Ulcer History When did wound start?: March 2022 Mode of Arrival/ Nurse First Assist: Personal vehicle Lives with:: Alone Appetite Description: Within Normal Limits Who helps w/ dressing change?: Self Smoking Status: Current every day smoker PMFSH Vaccinated for COVID-19?: Yes Medical History (Updated 04/14/22 @ 14:45 by Fariha Novak APRN) Diabetes Hyperlipidemia Hypertension Neuropathy Surgical History H/O hernia repair Family History (Updated 10/05/22 @ 14:36 by Jennifer Hitchcock RN) Family/Other Diabetes Social History Smoking Status: Current every day smoker Tobacco Type: cigarettes Substance Use Type: Marijuana Grafts History of Graft History of Graft?: No Exam Physical Exam Vital Signs: Temp Pulse Resp BP O2 Del Method 98.6 F 112 H 18 168/98 H Room Air 04/14/22 14:14 04/14/22 14:14 04/14/22 14:14 04/14/22 14:14 04/14/22 14:14 Const General: cooperative, comfortable and no acute distress Nutritional Appearance: overweight Orientation: alert, awake and oriented x3 Lower/Upper Extremity Exam Vascular Exam-Pulses Left Brachial: Pulse Assessment Method: NIBP Objective Meds/Allergies Home Medications alprazolam 1 mg tablet 1 mg PO TID PRN Anxiety 04/14/22 [History Confirmed 04/14/22] aspirin 81 mg capsule 81 mg PO DAILY 04/14/22 [History Confirmed 04/14/22] atorvastatin 10 mg tablet 10 mg PO QHS 04/14/22 [History Confirmed 04/14/22] doxepin 50 mg capsule 50 mg PO QHS 04/14/22 [History Confirmed 04/14/22] empagliflozin 25 mg tablet (Jardiance) 25 mg PO DAILY 04/14/22 [History Confirmed 04/14/22] furosemide 20 mg tablet 20 mg PO DAILY 04/14/22 [History Confirmed 04/14/22] gabapentin 800 mg tablet 800 mg PO TID 04/14/22 [History Confirmed 04/14/22] insulin glargine 100 unit/mL (3 mL) subcutaneous pen (Lantus Solostar U-100 Insulin) 25 unit subcut QAM 04/14/22 [History Confirmed 04/14/22] insulin lispro 100 unit/mL subcutaneous pen 12 unit subcut TID 04/14/22 [History Confirmed 04/14/22] lisinopril 5 mg tablet 5 mg PO DAILY 04/14/22 [History Confirmed 04/14/22] meloxicam 15 mg tablet 15 mg PO DAILY 04/14/22 [History Confirmed 04/14/22] metformin 500 mg tablet 500 mg PO TID 04/14/22 [History Confirmed 04/14/22] metoprolol succinate 25 mg tablet,extended release 24 hr 25 mg PO DAILY 04/14/22[History Confirmed 04/14/22] omega-3 fatty acids 1,000 mg PO DAILY 04/14/22 [History Confirmed 04/14/22] omeprazole 20 mg tablet,delayed release 20 mg PO DAILY 04/14/22 [History Confirmed 04/14/22] Allergies No Known Allergies Allergy (Verified 04/14/22 14:17) Wound/Ulcer Left Toe - 2nd Digit: Type: Diabetic Ulcer Diabetic Ulcer Grading: Superficial ulcer of skin w/o penetration to deeper layers Bed Appearance: [place] and Yellow Percent of Wound Bed Granulated/Red: 90 Percent of Devitalized: 10 Length (cm): 0.5 Width (cm): 0.6 Depth (cm): 0.1 CM Sq: 0.300 Surrounding Tissue Appearance: Callous Surrounding Tissue Temp: Warm Drainage Amount: Small Drainage Description: Serosanguineous Drainage Odor: No Odor Left Plantar Great Toe: Type: Diabetic Ulcer Diabetic Ulcer Grading: Superficial ulcer of skin w/o penetration to deeper layers Bed Appearance: [place] and Yellow Percent of Wound Bed Granulated/Red: 50 Percent of Devitalized: 50 Length (cm): 2.3 Width (cm): 1.5 Depth (cm): 0.1 CM Sq: 3.450 Surrounding Tissue Appearance: Callous Surrounding Tissue Temp: Warm Drainage Amount: Small Drainage Description: Serosanguineous Drainage Odor: No Odor Right Plantar Great Toe: Type: Diabetic Ulcer Diabetic Ulcer Grading: Superficial ulcer of skin w/o penetration to deeper layers Bed Appearance: [place] and Yellow Percent of Wound Bed Granulated/Red: 10 Percent of Devitalized: 90 Length (cm): 2.1 Width (cm): 1.1 Depth (cm): 0.1 CM Sq: 2.310 Surrounding Tissue Appearance: Callous Surrounding Tissue Temp: Warm Drainage Amount: Small Drainage Description: Serosanguineous Drainage Odor: No Odor Right Posterior Heel: Type: Diabetic Ulcer Diabetic Ulcer Grading: Superficial ulcer of skin w/o penetration to deeper layers Bed Appearance: [place] and Yellow Percent of Wound Bed Granulated/Red: 10 Percent of Devitalized: 90 Length (cm): 1.5 Width (cm): 0.8 Depth (cm): 0.1 CM Sq: 1.200 Surrounding Tissue Appearance: Callous Surrounding Tissue Temp: Warm Drainage Amount: Moderate Drainage Description: Serosanguineous Drainage Odor: No Odor Procedures Time Out: 2 Patient Identifiers, Correct Patient, Correct Side/Site, Correct Procedure and Safety Issues Reviewed Procedure: The right heel ulcer was not anesthetized with topical 2% lidocaine gel. A curette was used to perform debridement for the removal of 1 cm? of devitalized tissue consisting of skin and slough. Debridement was down to healthy bleeding tissue. Estimated blood loss was minimal. Hemostasis was achieved by applying pressure. The right heel ulcer now appears 90% pink and the size remains the same. The patient tolerated well and had no pain. The right great toe ulcer was not anesthetized with topical 2% lidocaine gel. Acurette was used to perform debridement for the removal of 2 cm? of devitalized tissue consisting of skin and slough. Debridement was down to healthy bleeding tissue. Estimated blood loss was minimal. Hemostasis was achieved by applying pressure. The right great toe ulcer now appears 90% pink and the size remains the same. The patient tolerated well and had no pain. The left great toe ulcer was not anesthetized with topical 2% lidocaine gel. A curette was used to perform debridement for the removal of 3 cm? of devitalized tissue consisting of skin and slough. Debridement was down to healthy bleeding tissue. Estimated blood loss was minimal. Hemostasis was achieved by applying pressure. The left great toe ulcer now appears 90% pink and the size remains the same. The patient tolerated well and had no pain. The left 2nd toe ulcer was not anesthetized with topical 2% lidocaine gel. A curette was used to perform debridement for the removal of 0.3 cm? of devitalized tissue consisting of skin and slough. Debridement was down to healthy bleeding tissue. Estimated blood loss was minimal. Hemostasis was achieved by applying pressure. The left 2nd toe ulcer now appears 95% pink and the size remains the same. The patient tolerated well and had no pain. Results Height: 6 ft Weight: 81.647 kg Body Mass Index: 24.4 Assessment/Plan Assessment/Plan (1) Diabetic foot ulcer: Assessment/Problem Details: rt great toe lt great toe rt heel lt 2nd toe thermal adame but d/t diabetic neuropathy Qualifiers: Diabetes mellitus type: type 2 Non-pressure ulcer stage: limited to breakdown of skin Code(s): E11.621 - Type 2 diabetes mellitus with foot ulcer; L97.509 - Non-pressure chronic ulcer of other part of unspecified foot with unspecified severity Status: Acute (2) Diabetes: Code(s): E11.9 - Type 2 diabetes mellitus without complications Status: Chronic (3) Neuropathy: Assessment/Problem Details: ble d/t diabetes Code(s): G62.9 - Polyneuropathy, unspecified Status: Chronic (4) Tobacco use: Code(s): Z72.0 - Tobacco use Status: Chronic (5) Charcot foot due to diabetes mellitus: Code(s): E11.610 - Type 2 diabetes mellitus with diabetic neuropathic arthropathy Status: Suspected (6) Hyperlipidemia: Code(s): E78.5 - Hyperlipidemia, unspecified Status: Chronic Time spent with patient Time Spent With Patient (min): 20 Dictated By: Fariha Novak APRN DD/ 1437 Signed By: <Electronically signed by RADHA Novak> 04/14/22 1446 [facility] Work Phone: [phone]) [phone] NotePreliminary Technologist Report Lower arterial segmental doppler evaluation was performed. Please see the information that is listed below. Tin Pot Operator: Cici Patel LPN/PHYLLIS Radiologist Report SEGMENTAL PRESSURES STUDY: CLINICAL INFORMATION: Claudication. COMPARISON: . Bilateralbrachial pressures were performed along with segmental pressures of both lower extremities. Brachial Pressures: Left 134 mmHg Right 147 mmHg LEFT: High Thigh = 1.04 Low Thigh = 0.99 Calf = 1.08 Posterior Tibial MARGA = 1.05 Dorsalis Pedis MARGA = 1.01 Toe Brachial Index = 0.74 RIGHT: High Thigh = 1.25 Low Thigh = 1.17 Calf = 1.22 Posterior Tibial MARGA = 1.07 Dorsalis Pedis MARGA = 0.93 Toe Brachial Index = 0.83 There are triphasic waveforms bilaterally. There is no significant pressure gradient between contralateral arteries LATERAL segments. PVR tracings are satisfactory. IMPRESSION: No convincing sonographic evidence of peripheral artery occlusive disease or small vessel disease. Final Signed by: Canelo Padilla MD Signed (Electronic Signature): 10.14.2021 9:47 am Transcribed by: Cici Patel Transcribed DT/TM: 10.13.2021 4:57 (If Report is Signed, Electronically Signed in Other Vendor System)[facility] No data available for this section [facility] note[facility] assessment information available [facility] Work Phone: Evaluation note* Diagnosis Onset Date Resolution Status Diabetic foot ulcer acute Diabetes chronic Hyperlipidemia chronic Neuropathy chronic Tobacco use chronic [facility] Work Phone: Evaluation note* Diagnosis Onset Date Resolution Status Diabetes chronic Diabetic foot ulcer chronic Hyperlipidemia chronic Neuropathy chronic Tobacco use chronic [facility] Work Phone: Evaluation note* Diagnosis Onset Date Resolution Status Diabetes chronic Hyperlipidemia chronic Neuropathy chronic Tobacco use chronic Diabetic foot ulcer resolved [facility] Work Phone: Hospital Discharge instructions Additional Instructions Return for worsening symptoms Follow-[facility] Work Phone: Hospital Discharge instructions No data available for this section [facility] Author Fariha Novak [facility] May 27, 2022 2:46pm Note Date/Time May 27, 2022 2:46pm [facility] [address] [place] [address] Wound Center Provider Note Signed Patient: Geremias Melchor MR#: [id number] : 1965 Acct:[id number] Age/Sex: 56 / M Copies to: NON STAFF Fariha Novak APRN~ HPI Date of Visit Date of Visit: Date of Service: 05/27/2022 Time of Service: 14:43 Narrative HPI: 04/14/22 Geremias is a 56-year-old male presenting to [facility] wound care program for an initial visit for evaluation and treatment of thermal burn wounds to his bilateral feet that are d/t his diabetic neuropathy. He believes that these began sometime in March and says something about the concrete being too hot. Geremias is diabetic, possibly for over 20 years he says, and he does have neuropathy and has no sensation in the lower legs. Geremias was taught the dressings of the Vashe Cleanser and collagen silver and he was provided with a list of lotions to help with callus and fissures on his feet. He is not per se happy with his emergency medicine physician assistant in [place] and therefore I did give him the name of a local emergency medicine physician assistant who could address his concerns with Charcot foot in the right foot as well as other podiatric concerns. Healing will depend greatly on his diabetic control, he tells me his A1c is approximately 6.4 or 6.5, offloading these areas, having a nutritious diet that is higher in protein and amino acids and low in inflammation, having adequate arterial blood flow, quitting or reducing tobacco usage, as well as controlling and treating any infections that may arise. I do not see any signs of infection today. 05/04/22 3 of the 4 ulcers are healed, he saw Dr. Crowe and he was molded/cast for a shoe yesterday, he was also referred to [facility] for the Charcot and will see him soon, I did stress the importance of following with [facility] as Charcot is a very serious condition- he stated understanding 05/27/22 all ulcers are healed, he is aware to still follow closely with podiatry for the Charcot foot changes, no need to return to our office unless he needs further wound care Subjective Pain Left Foot: Pain Intensity: 0 Right Foot: Pain Intensity: 0 Wound/Ulcer History When did wound start?: March 2022 Mode of Arrival/ Nurse First Assist: Personal vehicle Lives with:: Alone Appetite Description: Within Normal Limits Who helps w/ dressing change?: Self Smoking Status: Current every day smoker PMFSH Vaccinated for COVID-19?: Yes Medical History (Updated 05/27/22 @ 14:45 by Fariha Novak APRN) Diabetes Hyperlipidemia Hypertension Neuropathy Surgical History H/O hernia repair Family History (Updated 04/14/22 @ 14:36 by Jennifer Hitchcock RN) Family/Other Diabetes Social History Smoking Status: Current every day smoker Tobacco Type: cigarettes Substance Use Type: Marijuana Grafts History of Graft History of Graft?: No Exam Physical Exam Vital Signs: Temp Pulse Resp BP O2 Del Method 97.7 F 90 20 153/78 H Room Air 05/27/22 14:39 05/27/22 14:39 05/27/22 14:39 05/27/22 14:39 05/27/22 14:39 Const General: cooperative, comfortable and no acute distress Nutritional Appearance: overweight Orientation: alert, awake and oriented x3 Lower/Upper Extremity Exam Vascular Exam-Pulses Left Brachial: Pulse Assessment Method: NIBP Objective Meds/Allergies Home Medications alprazolam 1 mg tablet 1 mg PO TID PRN Anxiety 04/14/22 [History Confirmed 05/27/22] aspirin 81 mg capsule 81 mg PO DAILY 04/14/22 [History Confirmed 05/27/22] atorvastatin 10 mg tablet 10 mg PO QHS 04/14/22 [History Confirmed 05/27/22] doxepin 50 mg capsule 50 mg PO QHS 04/14/22 [History Confirmed 05/27/22] empagliflozin 25 mg tablet (Jardiance) 25 mg PO DAILY 04/14/22 [History Confirmed 05/27/22] furosemide 20 mg tablet 20 mg PO DAILY 04/14/22 [History Confirmed 05/27/22] gabapentin 800 mg tablet 800 mg PO TID 04/14/22 [History Confirmed 05/27/22] insulin glargine 100 unit/mL (3 mL) subcutaneous pen (Lantus Solostar U-100 Insulin) 25 unit subcut QAM 04/14/22 [History Confirmed 05/27/22] insulin lispro 100 unit/mL subcutaneous pen 12 unit subcut TID 04/14/22 [History Confirmed 05/27/22] lisinopril 5 mg tablet 5 mg PO DAILY 04/14/22 [History Confirmed 05/27/22] meloxicam 15 mg tablet 15 mg PO DAILY 04/14/22 [History Confirmed 05/27/22] metformin 500 mg tablet 500 mg PO TID 04/14/22 [History Confirmed 05/27/22] metoprolol succinate 25 mg tablet,extended release 24 hr 25 mg PO DAILY 04/14/22[History Confirmed 05/27/22] omega-3 fatty acids 1,000 mg PO DAILY 04/14/22 [History Confirmed 05/27/22] omeprazole 20 mg tablet,delayed release 20 mg PO DAILY 04/14/22 [History Confirmed 05/27/22] Allergies No Known Allergies Allergy (Verified 04/14/22 14:17) Wound/Ulcer Left Plantar Great Toe: Type: Diabetic Ulcer Diabetic Ulcer Grading: Superficial ulcer of skin w/o penetration to deeper layers Length (cm): 0 Width (cm): 0 Depth (cm): 0 CM Sq: 0.000 Surrounding Tissue Appearance: Callous Surrounding Tissue Temp: Warm Drainage Amount: None Drainage Odor: No Odor Results Height: 6 ft Weight: 81.647 kg Body Mass Index: 24.4 Assessment/Plan Assessment/Plan (1) Diabetic foot ulcer: Assessment/Problem Details: rt great toe lt great toe rt heel lt 2nd toe thermal adame but d/t diabetic neuropathy Qualifiers: Diabetes mellitus type: type 2 Non-pressure ulcer stage: limited to breakdown of skin Code(s): E11.621 - Type 2 diabetes mellitus with foot ulcer; L97.509 - Non-pressure chronic ulcer of other part of unspecified foot with unspecified severity Status: Resolved (2) Diabetes: Code(s): E11.9 - Type 2 diabetes mellitus without complications Status: Chronic (3) Neuropathy: Assessment/Problem Details: ble d/t diabetes Code(s): G62.9 - Polyneuropathy, unspecified Status: Chronic (4) Tobacco use: Code(s): Z72.0 - Tobacco use Status: Chronic (5) Charcot foot due to diabetes mellitus: Code(s): E11.610 - Type 2 diabetes mellitus with diabetic neuropathic arthropathy Status: Suspected (6) Hyperlipidemia: Code(s): E78.5 - Hyperlipidemia, unspecified Status: Chronic Time spent with patient Time Spent With Patient (min): 10 Dictated By: Fariha Novak APRN DD/ 1443 Signed By: <Electronically signed by RADHA Novak> 05/27/22 1446 [facility] Work Phone: Progress note No data available for this section [facility] Summary Purpose Family History Relationship Condition Age at Onset Recorded Date/T shannan family member Diabetes mellitus Unknown Advance Directives Documents on File Type Date Recorded Patient Orchid Transplanter Expl anation Advance Directives and Living Will Power of Cotton Seed Culler Documents on File Type Date Recorded Patient Orchid Transplanter Expl anation Advance Directives and Living Will Power of [employer] Culler Documents on File Type Date Recorded Patient Orchid Transplanter Expl anation ACP-Advance Directive ACP-Power of [employer] Culler Advance Directive Response Recorded Date/ Time Advance Directives No March 6:44pm Advance Directive Response Recorded Date/ Time Advance Directives No March 5:44pm Discharge Instructions * Instructions* Loree Marinelli RN - 12/28/2019 SAME DAY SURGERY INSTRUCTIONS 1. Do not drive or operate hazardous machinery for at least 6 weeks. 2. Do not make important personal or business decisions for 24 hours. 3. Do not drink alcoholic beverages. 4. Do not smoke tobacco products. 5. Eat light foods initially (i.e., Jell-O, soups, etc) and drink plenty of fluids. 6. If your bandages become soaked with a bright red blood, place another dressing pad over your bandages. (Do not remove original bandage.) Call your surgeon for further instructions. A small amount of bright red blood is to be expected. 7. Limit your activities for 48 hours. Do not engage in heavy work until your surgeon gives you permission. 8. Report the following signs or any questions regarding your physical condition to your surgeon immediately: Excessive swelling of, or around, the wound area Redness Temperature of 101 (degrees F) or above Excessive pain 9. Call your surgeon, , for any questions regarding your surgery. Call [phone] forurgent questions after 5PM until 8AM 10. Call for an appointment to see your surgeon in 2 weeks. SPECIAL INSTRUCTIONS AND MEDICATIONS 1. Use sling for 6 weeks. No active shoulder motion for 6 weeks. Elbow extension is allowed and encouraged. Passive elbow flexion is allowed. You cannot actively flex your elbow. Must use opposite arm to lift operative arm. 2. Move fingers and wrist to improve circulation. 3. Use prescribed pain pill as directed by the doctor. You may use aspirin or Tylenol if you prefer. 4. Keep your dressing on an dry unless instructed differently by your physician. 5. Use ice as instructed. 6. Remove operative bandages: 12/29 (Tuesday). Then, you may shower if wound is clean and dry. 7. Keep incisions/dressings dry. If they happen to get wet remove wet dressing and place a new dry dressing. Tess Escalona MD 12/28/2019 10:16 AM SHOULDER INTERSCALENE NERVE BLOCK DISCHARGE INSTRUCTION You had a special nerve block today prior to your shoulder surgery. The name of the nerve block is called an interscalene block (ISB). Local anesthetic solution was injected near the nerves that supply important functions to your shoulder, elbow, arm and hand. The local anesthetic acts on the nerves and prevents you from moving your arm and from feeling pain, touch, pressure, hot and cold. These effects can last anywhere from 8-36 hours. It is extremely important during this time that you protect your shoulder, arm and hand from anything that could causeskin or nerve damage. AVOID any excessive pressure on the shoulder, elbow, arm and hand. AVOID having anything hot or cold come in contact with your arm, hand or fingers. Check the temperature of things with your un-blocked side or have someone staying with you check temperatures for you. If you are sent home with a cooling pad, please follow the instructions carefully. Please AVOID sleeping in a bed for the first 24 hours after surgery. When it's time to sleep, we strongly suggest sleeping in a reclining chair with your arm in the sling provided to you. Protect your arm and elbow with soft pillows. Make sure your arm does not have any excessive pressure on it. Remember, your shoulder, elbow, arm and hand are insensitive to things that can harm you. In order to manage your pain, please take your oral pain medication when you START to feel tingling/pins & needles in your operative arm. Continue to take your pain medication every 4-6 hours as ordered around the clock for the first day after your surgery. Do not skip doses unless you are verydrowsy. Pain control is an important part of your recovery from surgery. Decreased pain will improve your ability to move and resume your normal activities. If your pain is not controlled enough for you to walk and participate in your own self- care, you need to report this to your physician. As you recoverfrom the surgery, it is anticipated that the pain will gradually decrease over time. If the pain suddenly increases or does not decrease after several weeks, this should be reported to your physician. You may need to modify your activities or home situation for a brief time as you recover from surgery. This may include changing location of sleeping to minimize stair climbing, assistance with household duties, and even personal care. Discuss these needs with your health care provider prior to discharge. If you have any questions, problems or concerns, please contact your surgeon. documented in this encounter History of Present Illness * Loree Marinelli RN - 12/28/2019 2:36 PM EDT Discharge instructions reviewed with patient and patient's girlfriend. Both imply understanding. Scripts x2 given. * Loree Marinelli RN - 12/28/2019 2:30 PM EDT Discharge Criteria Inpatients must meet Criteria 1 through 7. All other patients are either YES or N/A. If a NO is chosen then Anesthesia or Surgeon must be notified. 1. Minimum 30 minutes after last dose of sedative medication, minimum 120 minutes after last dose of reversal agent. Yes 2. Systolic BP stable within 20 mmHg for 30 minutes & systolic BP between 90 & 180 or within 10 mmHg of baseline. Yes 3. Pulse between 60 and 100 or within 10 bpm of baseline. Yes 4. Spontaneous respiratory rate >/= 10 per minute. Yes 5. SaO2 >/= 95 or >/= baseline. Yes 6. Able to cough and swallow or return to baseline function. Yes 7. Alert and oriented or return to baseline mental status. Yes 8. Demonstrates controlled, coordinated movements, ambulates with steady gait, or return to baseline activity function. Yes 9. Minimal or no pain or nausea, or at a level tolerable and acceptable to patient. Yes 10. Takes and retains oral fluids as allowed. Yes 11. Procedural / perioperative site stable. Minimal or no bleeding. Yes 12. If GI endoscopy procedure, minimal or no abdominal distention or passing flatus. Yes 13. Written discharge instructions and emergency telephone number provided. Yes 14. Accompanied by a responsible adult. Yes * Lauro Mendiola RN - 12/28/2019 12:36 PM EDT Report given to Mariah Marinelli RN * Daina Cano RN - 12/17/2019 10:38 AM EDT Patient instructed on the pre-operative, intra-operative, and post-operative process. Patient instructed on NPO status. Medication instructions and Pre operative instruction sheet reviewed over the phone. Instructed pt to stop taking ibuprofen and all non prescription vitamins as of 12/22/19. Instructed pt to verify with Dr. Escalona if he needs to stop aspirin prior to the procedure. Instructed pt to take gabapentin and metoprolol with a small sip of water prior to arriving to the hospital the day of surgery and to bring the surgery sling the day of surgery. documented in this encounter Assessments Diagnosis 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, initial encounter Diagnosis Acute pain of right shoulder Diagnosis Right knee pain, unspecified chronicity Reason for Referral Status Reason Specialty Diagnoses / Procedures Referre d By Contact Referred To Contact [facility] Radiology Diagnoses Acute pain of right shoulder Procedures MRI SHOULDER RIGHT WO CONTRAST Mignon Townsend, [employer] [address] [place] [address] Status Reason Specialty Diagnoses / Procedures Referre d By Contact Referred To Contact [facility] Diagnoses Right knee pain, unspecified chronicity Procedures MRI KNEE RIGHT WO CONTRAST Mignon Townsend, [employer] MANAGER [address] [place] [address] Chief Complaint and Reason for Visit Chief Complaint rt foot injury Chief Complaint rt foot injury Open wound M25.571 L97.512 M79.671 Reason for Visit Diabetic foot ulcer Diabetes Hyperlipidemia Neuropathy Tobacco use Chief Complaint rt foot injury Open wound M25.571 L97.512 M79.671 M79.671 L97.512 Reason for Visit Diabetic foot ulcer Diabetes Hyperlipidemia Neuropathy Tobacco use Chief Complaint rt foot injury M25.571 L97.512 M79.671 M79.671 L97.512 Open wound charcot m14.671 Reason for Visit Diabetes Diabetic foot ulcer Hyperlipidemia Neuropathy Tobacco use Chief Complaint rt foot injury M25.571 L97.512 M79.671 M79.671 L97.512 charcot m14.671 Open wound Reason for Visit Diabetes Hyperlipidemia Neuropathy Tobacco use Diabetic foot ulcer Additional Source Comments (unrecognized sect ion and content) No Status Records FoundNo Status Records FoundNo Status Records FoundNo Status Records FoundNo Status Records FoundNo Status Records FoundNo Status Records Found INFORMATION SOURCE (unrecogn ized section and content) DATE CREATED AUTHOR 11/15/2018 [facility] DATE CREATED AUTHOR AUTHOR'S ORGANIZ ATION 03/28/2020 [facility] DATE CREATED AUTHOR AUTHOR'S ORGANIZ ATION 06/21/2020 [facility] DATE CREATED AUTHOR AUTHOR'S ORGANIZ ATION 07/19/2022 [facility] DATE CREATED AUTHOR AUTHOR'S ORGANIZ ATION 09/10/2022 [facility] DATE CREATED AUTHOR AUTHOR'S ORGANIZ ATION 2022 [facility] DATE CREATED AUTHOR AUTHOR'S ORGANIZ ATION 06/18/2023 [facility] Reason for Visit (unrecogniz ed section and content) Status Reason Specialty Diagnoses / Procedures Referre d By Contact Referred To Contact Diagnoses Unspecified rotator cuff tear or rupture of right shoulder, not specified as traumatic RIGHT SHOULDER ROTATOR CUFF TEAR Procedures NV SHLDR ARTHROSCOP,SURG,W/ROTAT CUFF REPR SHOULDER ARTHROSCOPY ROTATOR CUFF REPAIR, POSSIBLE BICEPS TENDONDESIS Tess Escalona MD [address] [place] [address] [facility] [address] [facility] Status Reason Specialty Diagnoses / Procedures Referre d By Contact Referred To Contact Closed Radiology Diagnoses Pain in right shoulder Procedures MRI-UPPER EXT JNT WO CONT Tess Escalona MD [address] [facility] [address] [address] Status Reason Specialty Diagnoses / Procedures Referre d By Contact Referred To Contact Closed Radiology Diagnoses Pain in right knee Procedures HC MRI LOWER EXTREM JT, W/O CONTRAST Mignon Townsend, [employer] MANAGER [address] [place] [address] [address] Care Teams (unrecognized sec tion and content) Team Status: Inactive Member Role Status Dates NON STAFF Primary Care Provider Active Madison Mosher PA-C Emergency Provider Active Team Status: Active Member Role Status Dates NON STAFF Primary Care Provider Active Team Status: Active Member Role Status Dates NON STAFF Primary Care Provider Active Fariha Novak APRN Attending Provider Active Team Status: Inactive Member Role Status Dates Franky Turpin DPM Attending Provider Active NON STAFF Primary Care Provider Active Team Status: Inactive Member Role Status Dates NON STAFF Primary Care Provider Active Nayla Oakes DPM [place] Attending Provider Active Team Status: Inactive Member Role Status Dates NON STAFF Primary Care Provider Active Fariha Novak APRN Attending Provider Active Goals (unrecognized section and content) Goals may be documented in a n alternate sectionGoals may be documented in an alternate sectionGoals may be documented in an alternate sectionGoals may be documented in an alternate sectionGoals may be documented in an alternate section No data available for this section FOR RECORDS PERTAINING TO PATIENTS WHO ARE OR HAVE BEEN ENROLLED IN A CHEMICAL DEPENDENCY/SUBSTANCEABUSE PROGRAM, SOME INFORMATION MAY BE OMITTED. This clinical summary was aggregated from multiple sources. Caution should be exercised in using it in the provision of clinical care. This summary normalizes information from multiple sources, and as a consequence, information in this document may materially change the coding, format and clinical context of patient data. In addition, data may be omitted in some cases. CLINICAL DECISIONS SHOULD BE BASED ON THE PRIMARY CLINICAL RECORDS. [employer] provides no warranty or guarantee of the accuracy or completeness of information in this document.
== END 2023-05-31 14:08 | disposition home or self-care (01) ==
LOC: WC 14:07
PROVIDERS: Visit Provider Podiatrist Foot & Ankle Surgery
DX: L97.312 Non-pressure chronic ulcer of right ankle with fat layer exposed (principal)
CPT/HCPCS: 11042; 29445

== ENCOUNTER 2023-06-07 15:28 | Outpatient (OUT) | payer MEDICARE, MEDICAID, SELFPAY | END 2023-06-07 15:29 | disposition home or self-care (01) | LOC: WC 15:28 | PROVIDERS: Visit Provider Podiatrist Foot & Ankle Surgery | DX: L97.312 Non-pressure chronic ulcer of right ankle with fat layer exposed (principal) | CPT/HCPCS: 11042; 29445 ==

== ENCOUNTER 2023-06-14 15:03 | Outpatient (OUT) | payer MEDICARE, MEDICAID, SELFPAY ==
--- NOTE | 2023-06-14 | XR_ITS ---
The [address] [address] Patient Name: GEREMIAS ARAYA MRN: [id number] date: 1965 Sex: M Assigned Patient Location: Current Patient Location: Accession/Order Number: [id number] Exam Date: 06/14/2023 15:40 Report Date: 06/15/2023 01:59 At the request of: NAYLA OAKES Procedure: XR ankle RT min 3V PROCEDURE: XR ankle RT min 3V, XR foot RT min 3V HISTORY: RIGHT ANKLE PAIN , right foot pain COMPARISON: Ankle and foot right 05/24/2023 FINDINGS: BONES:Mechanical fusion of the ankle joint and hindfoot via intramedullary isabela and locking screws. Suspect backing out of the distal medullary isabela locking screw which enters from the lateral side of the foot. Prior resection of distal fibula. Approximately 3 mm backing out of the posterior calcaneal locking screw. Prior resection of the cuboid. Prominent degenerative changes the midfoot. SOFT TISSUES:Moderate soft tissue swelling surrounding the foot. EFFUSION:None visible. OTHER: Negative. XR/XR ankle RT min 3V IMPRESSION: 1. Slight backing out of the distal medullary isabela locking screw which enters from the lateral side of the foot. This could also represent slight difference in positioning compared to prior study. Follow-up recommended. 2. Mild backing out of the posterior calcaneal locking screw. 3. Stable degenerative changes and surgical changes of the midfoot. Electronically authenticated by: TESS JHAVERI Date: 06/15/2023 01:59
--- NOTE | 2023-06-14 | XR_ITS ---
The [address] [address] Patient Name: GEREMIAS ARAYA MRN: [id number] date: 1965 Sex: M Assigned Patient Location: Current Patient Location: Accession/Order Number: [id number] Exam Date: 06/14/2023 15:40 Report Date: 06/15/2023 01:59 At the request of: NAYLA OAKES Procedure: XR foot RT min 3V PROCEDURE: XR ankle RT min 3V, XR foot RT min 3V HISTORY: RIGHT ANKLE PAIN , right foot pain COMPARISON: Ankle and foot right 05/24/2023 FINDINGS: BONES:Mechanical fusion of the ankle joint and hindfoot via intramedullary isabela and locking screws. Suspect backing out of the distal medullary isabela locking screw which enters from the lateral side of the foot. Prior resection of distal fibula. Approximately 3 mm backing out of the posterior calcaneal locking screw. Prior resection of the cuboid. Prominent degenerative changes the midfoot. SOFT TISSUES:Moderate soft tissue swelling surrounding the foot. EFFUSION:None visible. OTHER: Negative. XR/XR foot RT min 3V IMPRESSION: 1. Slight backing out of the distal medullary isabela locking screw which enters from the lateral side of the foot. This could also represent slight difference in positioning compared to prior study. Follow-up recommended. 2. Mild backing out of the posterior calcaneal locking screw. 3. Stable degenerative changes and surgical changes of the midfoot. Electronically authenticated by: TESS JHAVERI Date: 06/15/2023 01:59
== END 2023-06-14 15:04 | disposition home or self-care (01) ==
LOC: WC 15:03
PROVIDERS: Visit Provider Podiatrist Foot & Ankle Surgery
DX: M25.571 Pain in right ankle and joints of right foot (principal); M79.671 Pain in right foot; L97.312 Non-pressure chronic ulcer of right ankle with fat layer exposed
CPT/HCPCS: 11042; 73610; 73630

== ENCOUNTER 2023-06-24 11:12 | Outpatient (OUT) | payer MEDICARE, SELFPAY ==
--- NOTE | 2023-06-24 11:57 | P.GSHP_ITS ---
History of Present Illness History of Present Illness Chief complaint: right ankle wound dehiscence, charcot joing Narrative: Patient presents for preadmission testing. Please see HPI from Dr. Chadwick dated 05/31/2023. Review of Systems ROS Narrative Please ssee ROS from Dr. Chadwick dated 05/31/2023. [facility] Medical History (Updated 06/24/23 @ 11:24 by Love Alvarez NP) Charcot's joint ?M14.60 - Charcot's joint, unspecified site (ICD-10) Wound dehiscence ?T81.30XA - Disruption of wound, unspecified, initial encounter (ICD-10) Diabetic neuropathy ?E11.40 - Type 2 diabetes mellitus with diabetic neuropathy, unspecified (ICD-10) Anxiety ?F41.9 - Anxiety disorder, unspecified (ICD-10) Asthma ?J45.909 - Unspecified asthma, uncomplicated (ICD-10) GERD (gastroesophageal reflux disease) ?K21.9 - Gastro-esophageal reflux disease without esophagitis (ICD-10) Activity intolerance ?R68.89 - Other general symptoms and signs (ICD-10) Dyspnea on exertion ?R06.09 - Other forms of dyspnea (ICD-10) Hypertension ?I10 - Essential (primary) hypertension (ICD-10) High cholesterol ?E78.00 - Pure hypercholesterolemia, unspecified (ICD-10) Diabetes ?E11.9 - Type 2 diabetes mellitus without complications (ICD-10) Diabetic foot ulcer ?E11.621 - Type 2 diabetes mellitus with foot ulcer (ICD-10) ?L97.509 - Non-pressure chronic ulcer of other part of unspecified foot with unspecified severity (ICD-10) Osteoarthritis ?M19.90 - Unspecified osteoarthritis, unspecified site (ICD-10) Charcot's joint, right ankle and foot ?M14.671 - Charcot's joint, right ankle and foot (ICD-10) Alcohol dependence ?F10.20 - Alcohol dependence, uncomplicated (ICD-10) Surgical History (Updated 06/24/23 @ 11:01 by Love Alvarez NP) H/O foot surgery (03/31/23) ?Z98.890 - Other specified postprocedural states (ICD-10) H/O umbilical hernia repair ?Z98.890 - Other specified postprocedural states (ICD-10) ?Z87.19 - Personal history of other diseases of the digestive system (ICD-10) History of surgery on arm ?Z98.890 - Other specified postprocedural states (ICD-10) H/O shoulder surgery ?Z98.890 - Other specified postprocedural states (ICD-10) Family History Other Family history of diabetes mellitus Family history of heart disease Social History Within the past year, how often did you have a drink containing alcohol: 4 or more times a week Within the past year, how many standard drinks containing alcohol did you have on a typical day: 3 or 4 Smoking status: Current every day smoker Non-prescribed substance use: denies use Highest level of school completed/degree received: high school graduate Meds Home Medications and Allergies Home Medications Medication Instructions Recorded Confirmed Type albuterol sulfate 90 mcg/actuation 2 inh inhalation Q6H PRN shortness 03/10/23 06/24/23 History aerosol inhaler of breath or wheezing alprazolam 1 mg tablet 1 mg PO TID 03/10/23 06/24/23 History atorvastatin 10 mg tablet 10 mg PO QDAY 03/10/23 06/24/23 History doxepin 50 mg capsule 150 mg PO QPM 03/10/23 06/24/23 History empagliflozin 25 mg tablet 25 mg PO QDAY 03/10/23 06/24/23 History (Jardiance) fluoxetine 10 mg capsule 10 mg 03/10/23 History furosemide 20 mg tablet 20 mg PO QDAY PRN edema 03/10/23 06/24/23 History gabapentin 800 mg tablet 800 mg PO TID 03/10/23 06/24/23 History insulin glargine 100 unit/mL (3 25 unit subcut QAM 03/10/23 06/24/23 History mL) subcutaneous pen (Lantus Solostar U-100 Insulin) insulin lispro 100 unit/mL 14 unit subcut BID 03/10/23 06/24/23 History subcutaneous pen lisinopril 10 mg tablet 10 mg PO QDAY 03/10/23 06/24/23 History metformin 500 mg tablet 500 mg PO TID 03/10/23 06/24/23 History metoprolol succinate 50 mg 50 mg PO QDAY 03/10/23 06/24/23 History tablet,extended release 24 hr omeprazole 20 mg capsule,delayed 20 mg PO QDAY 03/10/23 06/24/23 History release sildenafil 100 mg tablet 100 mg PO Q24H 03/10/23 06/24/23 History thiamine HCl (vitamin B1) 50 mg 50 mg PO QDAY 03/10/23 06/24/23 History tablet alendronate 70 mg tablet (Fosamax) 70 mg PO QWEEK 12 weeks #12 tabs 03/31/23 06/24/23 Rx cholecalciferol (vitamin D3) 125 125 mcg PO DAILY 90 days #90 caps 03/31/23 06/24/23 Rx mcg (5,000 unit) capsule amoxicillin 875 mg-potassium 1 tab PO Q12H 06/24/23 06/24/23 History clavulanate 125 mg tablet aspirin 81 mg tablet,delayed 81 mg PO DAILY 06/24/23 06/24/23 History release (Adult Aspirin Regimen) sulfamethoxazole 800 1 tab PO Q12H 06/24/23 06/24/23 History mg-trimethoprim 160 mg tablet Allergies Allergy/AdvReac Type Severity Reaction Status Date / Time No Known Drug Allergies Allergy Verified 06/24/23 11:27 Exam Narrative Exam Narrative: Constitutional: Awake, alert, comfortable, well-appearing, nontoxic, interactive, vital signs as charted Head: Normocephalic, atraumatic Neck: Supple, normal appearance, normal range of motion, no meningeal signs, no lymphadenopathy Respiratory: No respiratory distress, breath sounds clear Cardiovascular: Regular rate and rhythm, strong and regular heart tones Psychiatric: Oriented ?3, normal affect Assessment and Plan Assessment and Plan (1) Charcot's joint: (2) Wound dehiscence: Plan Right ankle wound debridement with skin graft substitute application, possible wound VAC scheduled with Dr. Chadwick 06/27/2023.
[2023-06-24 12:27] LABS: Anion Gap 13.5; BUN Creatinine Ratio 22.9; Calcium 10.1 mg/dL (8.5-10.1); Carbon Dioxide 26.1 mmol/L (21.0-32.0); Chloride 94 mmol/L (98-107); Estimated GFR (African America >60 (>=60); Estimated GFR (Non-African Ame 56 (>=60); Glucose 135 mg/dL (74-106); Potassium 4.6 mmol/L (3.5-5.1); Sodium 129 mmol/L (136-145)
== END 2023-06-24 11:13 | disposition home or self-care (01) ==
LOC: SURGOUT 11:13 → PST 12:08
PROVIDERS: Visit Provider Podiatrist Foot & Ankle Surgery
DX: Z01.812 Encounter for preprocedural laboratory examination (principal); M14.671 Charcot's joint, right ankle and foot; T81.31XA Disruption of external operation (surgical) wound, not elsewhere classified, initial encounter
CPT/HCPCS: 80048; G0463

== ENCOUNTER 2023-06-24 12:04 | Outpatient (OUT) | payer MEDICARE, MEDICAID, SELFPAY ==
--- NOTE | 2023-06-24 12:11 | CT_ITS ---
[address] [address] Patient Name: GEREMIAS ARAYA MRN: [id number] date: 1965 Sex: M Assigned Patient Location: CT Current Patient Location: [facility] Accession/Order Number: [id number] Exam Date: 06/24/2023 12:15 Report Date: 06/27/2023 08:17 At the request of: NAYLA OAKES Procedure: CT ankle RT wo con EXAMINATION: CT ankle RT wo con HISTORY: Right Ankle Charcot COMPARISON: No relevant comparison available. TECHNIQUE: Multi-planar CT images were created without IV contrast. Dose reduction techniques were achieved by using automated exposure control and/or adjustment of mA and/or kV according to patient size and/or use of iterative reconstruction technique. FINDINGS: BONES: Again demonstrated is ankle fusion using a retrograde intramedullary nail and proximally and distally. Prior resection of the distal fibula. There is retraction of the posterior calcaneal locking screw which is 9 mm from the posterior calcaneal cortex. There is retraction of the lateral calcaneal locking screw which is 1.3 cm from the lateral calcaneal cortex. Severe degenerative changes of the midfoot and hindfoot with plantar rotation of the hindfoot in relation to the midfoot and cranial dislocation of the midfoot which articulates with the superior talus and anterior tibia. SOFT TISSUES: Extensive diffuse soft tissue swelling with a lateral soft tissue wound EFFUSION: None visible. OTHER: Negative. CT/CT ankle RT wo con IMPRESSION: Ankle fusion as detailed above Electronically authenticated by: SASHA FLAHERTY Date: 06/27/2023 08:17
== END 2023-06-24 12:05 | disposition home or self-care (01) ==
LOC: CT 12:05
PROVIDERS: Visit Provider Podiatrist Foot & Ankle Surgery
DX: M14.671 Charcot's joint, right ankle and foot (principal); Z01.812 Encounter for preprocedural laboratory examination; T81.31XA Disruption of external operation (surgical) wound, not elsewhere classified, initial encounter; M25.471 Effusion, right ankle
CPT/HCPCS: 73700; 80048; G0463

== ENCOUNTER 2023-06-27 08:07 | Day surgery (SDC) | payer MEDICARE, MEDICAID, SELFPAY ==
[2023-06-24 11:42] VITALS: BP 128/78; PULSE 100; RESP 20; TEMP 36.3; O2SAT 95; BMI 31.7
[2023-06-27] VITALS (16 sets, daily range): BP systolic 131–159; BP diastolic 79–104; PULSE 97–111; RESP 8–26; TEMP 36.5–36.6; O2SAT 91–97; BMI 31.7
--- NOTE | 2023-06-27 | FL_ITS ---
[address] [address] Patient Name: GEREMIAS ARAYA MRN: [id number] date: 1965 Sex: M Assigned Patient Location: [facility] Current Patient Location: Accession/Order Number: [id number] Exam Date: 06/27/2023 10:50 Report Date: 06/28/2023 08:21 At the request of: NAYLA OAKES Procedure: FL fluoroscopy <1hr NON-READ EXAM: FL fluoroscopy <1hr NON-READ HISTORY: RIGHT WOUND DEBRIDEMENT TECHNIQUE: FINDINGS: Please see Operative Report. Electronically authenticated by: RADIOLOGIST NO Date: 06/28/2023 08:21
[2023-06-27 08:26] LABS: Glucometer 139 mg/dL (74-106)
[2023-06-27] MEDS: LACTATED RINGER'S SOLUTION 1,000 ML 50 ML IV (08:34)
[2023-06-27] MEDS: CEFAZOLIN SODIUM/DEXTROSE,ISO 2 GM/50 ML PIGGYBACK IV (08:54)
--- NOTE | 2023-06-27 09:03 | XR_ITS ---
The [address] [address] Patient Name: GEREMIAS ARAYA MRN: [id number] date: 1965 Sex: M Assigned Patient Location: [facility] Current Patient Location: [facility] Accession/Order Number: [id number] Exam Date: 06/27/2023 09:45 Report Date: 06/27/2023 10:17 At the request of: NAYLA OAKES Procedure: XR foot RT min 3V EXAM: XR ankle RT min 3V, XR foot RT min 3V HISTORY: pre surgery COMPARISON: Right ankle right foot study dated 06/14/2023 TECHNIQUE: AP and oblique views of the right ankle were obtained. Lateral views of the right ankle is included on the right foot study. FINDINGS: Stabilizing rods and screws similar to the prior study. Resection of the distal fibula similar to prior study. No significant interval bony abnormality. Mild soft tissue swelling. 3 views of the right foot were obtained. FINDINGS: Stabilizing rods and screws similar to prior study. Resection of distal fibula similar to the prior study. Resection of the cuboid similar to prior study. No obvious interval fracture or dislocation. Toes are not diagnostically evaluated due to technique. Mild soft tissue swelling. XR/XR foot RT min 3V IMPRESSION: Right ankle study demonstrates findings similar to the prior study. No significant interval abnormality. Right foot study demonstrates findings similar to prior study. No significant interval abnormality. Follow-up as needed. Electronically authenticated by: SHANIA GUZMAN Date: 06/27/2023 10:17
--- NOTE | 2023-06-27 09:04 | XR_ITS ---
The [address] [address] Patient Name: GEREMIAS ARAYA MRN: [id number] date: 1965 Sex: M Assigned Patient Location: [facility] Current Patient Location: [facility] Accession/Order Number: [id number] Exam Date: 06/27/2023 09:45 Report Date: 06/27/2023 10:17 At the request of: NAYLA OAKES Procedure: XR ankle RT min 3V EXAM: XR ankle RT min 3V, XR foot RT min 3V HISTORY: pre surgery COMPARISON: Right ankle right foot study dated 06/14/2023 TECHNIQUE: AP and oblique views of the right ankle were obtained. Lateral views of the right ankle is included on the right foot study. FINDINGS: Stabilizing rods and screws similar to the prior study. Resection of the distal fibula similar to prior study. No significant interval bony abnormality. Mild soft tissue swelling. 3 views of the right foot were obtained. FINDINGS: Stabilizing rods and screws similar to prior study. Resection of distal fibula similar to the prior study. Resection of the cuboid similar to prior study. No obvious interval fracture or dislocation. Toes are not diagnostically evaluated due to technique. Mild soft tissue swelling. XR/XR ankle RT min 3V IMPRESSION: Right ankle study demonstrates findings similar to the prior study. No significant interval abnormality. Right foot study demonstrates findings similar to prior study. No significant interval abnormality. Follow-up as needed. Electronically authenticated by: SHANIA GUZMAN Date: 06/27/2023 10:17
[2023-06-27] MEDS: VANCOMYCIN HCL 500 MG VIAL TOPICAL (10:57)
[2023-06-27 12:00] LABS: Glucometer 109 mg/dL (74-106)
[2023-06-27] MEDS: HYDROMORPHONE HCL 0.5 MG/0.5 ML SYRINGE 0.25 MG IV ×2 (12:03→12:08)
--- NOTE | 2023-06-27 12:05 | XR_ITS ---
The [address] [address] Patient Name: GEREMIAS ARAYA MRN: [id number] date: 1965 Sex: M [facility] Location: [facility] Accession/Order Number: [id number] Exam Date: 06/27/2023 12:15 Report Date: 06/28/2023 11:19 At the request of: SHIRLEY JONES Procedure: XR ankle RT min 3V EXAM: XR ankle RT min 3V HISTORY: Postop x-ray PACU. COMPARISON: Right ankle study dated 06/27/2023. TECHNIQUE: 3 views of the right ankle were obtained. FINDINGS: Stabilizing rods and screws noted. The most inferiorly noted stabilizing screw related to the stabilizing isabela is no longer identified compatible with interval removal. Postoperative nilton noted laterally. [id number] soft tissue swelling. Resection of distal fibula similar to the prior study. No definite acute fracture or dislocation. Overlying dressing noted. XR/XR ankle RT min 3V IMPRESSION: Right ankle study demonstrates postoperative changes as noted. Follow-up as needed. Electronically authenticated by: SHANIA GUZMAN Date: 06/28/2023 11:19
[2023-06-27] MEDS: OXYCODONE HCL/ACETAMINOPHEN 5MG/325MG 1 TAB PO (12:16)
--- NOTE | 2023-06-27 12:33 | P.ORON_ITS ---
Brief Operative Note Date of procedure: 06/27/23 Pre-op diagnosis: right foot Charcot, deep retained hardware & surgical dehisc ence Post-op diagnosis: same as pre-op Procedure: PROCEDURE PERFORMED: removal of deep implanted hardware right foot, Application of allogenic skin substitute <25 cm2, application of total contact cast INTRAOPERATIVE FINDINGS: Preoperative wound measurements: 5.5 x 0.6 x 0.4 cm. the lateral to medial calcaneal screw was loose and easily removed. 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 no evidence of acute infection PROCEDURE IN DETAIL: Patient was identified in pre op and consent was reviewed. Correct side and site were identified and marked. Pre-op antibiotics were started. Patient was brought to OR suite and place on table in a supine position. General anesthesia was admi nistered. Operative extremity was prepped and draped in usual sterile fashion. Formal time-out was performed. no tourniquet was used With attention to the ulcer located on the lateral foot and ankle, the wound was excised to one hundred percent granular healthy base using #15 scalpel, curettes and versa jet. The wound and surgical site were irrigated with copious amounts of sterile saline.Following debridement the screw was located just inferior to the wound but given the wound now communicated to the lateral heel and was easily removed with a hemostat. The screw hole was curetted until healthy bleeding bone was noted. On the back table Cerament bone void filler impregnated with vancomycin was prepared then was injected into the screw hole and allowed to harden. surgical site was irrigated again, then a theraskin allogenic skin substitute was then applied according to the crop or grain farmworker's standard directions and sewn to the wound base and periwound skin using absorbable suture and stapl es. then three skin retention sutures were placed dorsal and plantar to the wound for hemostasis and to promote slight skin tension. The sutures were tightened capillary refill is brisk to the wound edge but was unable to be closed without causing too much skin tension. Surgical site was irrigated again with saline. Then, the wound was dressed with two layers of Adaptic, 4 x 4's and Kerlix. Then stockinette and cast padding was used to ensure all bony prominences were protected. Then a total contact cast was applied using the TCC- EZ system. The foot and ankle were held in neutral position while was allowed to dry. Patient tolerated the procedure and anesthesia well transferred to recovery room with vital signs stable. POSTOPERATIVE PLAN: Discharge home under family/friend's care Post op instructions provided verbally and written Keep dressing clean, dry and intact unless otherwise directed; reinforce if needed prescription(s) were placed in chart WB Status: nonweight bearing Follow-up within 3-5 days for cast/dressing change Anesthesia: General-LMA Surgeon: Montrell Chadwick Bulk Sugar Handler: Diaz Naranjo Estimated blood loss (mL): 25 Tourniquet time (min): 0 Pathology: none sent Condition: stable Disposition: PACU Preoperative Details Reason for procedure: patient is a 57-year-old type II diabetic male who underwent ankle and subtalar joint fusion for right Charcot on 03/31/23. His recovery has been complicated by noncompliance in nonweightbearing as well as nonhealing lateral ankle incision. At recent appointment his wounds appear to be healing however there was concern for deep areas and CT scan as well as x-rays confirmed hardware loosening. His CT scan showed otherwise stable fixation and early partial evidence of subtalar joint fusion with less evidence of osseous fusion in his ankle joint. we did discuss allogenic skin substitute in the wound center however, it was financially prohibited for him. I then discussed the potential risks and benefits of surgical intervention which would involve application of the graft and removal of the lateral to medial screw if visualized and communicated with the wound. All questions were answered to satisfaction and he wished to proceed with surgery.
== END 2023-06-27 13:20 | disposition home or self-care (01) ==
PROVIDERS: Visit Provider Podiatrist Foot & Ankle Surgery
PROC: (CPT 00400; principal; 2023-06-27 09:25)
DX: T81.31XA Disruption of external operation (surgical) wound, not elsewhere classified, initial encounter (principal); E11.610 Type 2 diabetes mellitus with diabetic neuropathic arthropathy; E11.40 Type 2 diabetes mellitus with diabetic neuropathy, unspecified; F41.9 Anxiety disorder, unspecified; K21.9 Gastro-esophageal reflux disease without esophagitis; I10 Essential (primary) hypertension; E78.00 Pure hypercholesterolemia, unspecified; E11.621 Type 2 diabetes mellitus with foot ulcer; L97.509 Non-pressure chronic ulcer of other part of unspecified foot with unspecified severity; F10.20 Alcohol dependence, uncomplicated; F17.200 Nicotine dependence, unspecified, uncomplicated; Z79.4 Long term (current) use of insulin; Z79.84 Long term (current) use of oral hypoglycemic drugs; M21.6X1 Other acquired deformities of right foot; M21.6X9 Other acquired deformities of unspecified foot; L97.312 Non-pressure chronic ulcer of right ankle with fat layer exposed
CPT/HCPCS: 00400; 01480; 15004; 15275; 20680; 36415; 73610; 73630; 76000; 82948; C1713; J1094; J1170; J2704; J3370; Q4121

== ENCOUNTER 2023-06-30 10:39 | Outpatient (OUT) | payer MEDICARE, MEDICAID, SELFPAY | END 2023-06-30 10:40 | disposition home or self-care (01) | LOC: WC 07-05 10:39 | PROVIDERS: Visit Provider Physician Assistant | DX: L97.312 Non-pressure chronic ulcer of right ankle with fat layer exposed (principal) | CPT/HCPCS: 29445 ==

== ENCOUNTER 2023-07-06 14:58 | Outpatient (OUT) | payer MEDICARE, MEDICAID, SELFPAY ==
--- NOTE | 2023-07-06 | XR_ITS ---
The [address] [address] Patient Name: GEREMIAS ARAYA MRN: [id number] date: 1965 Sex: M Assigned Patient Location: Current Patient Location: Accession/Order Number: [id number] Exam Date: 07/06/2023 15:15 Report Date: 07/08/2023 07:20 At the request of: NAYLA OAKES Procedure: XR ankle RT min 3V PROCEDURE: XR ankle RT min 3V, XR foot RT min 3V HISTORY: POST OP IMAGING COMPARISON: XR right ankle and foot 06/27/2023 FINDINGS: BONES:Prior mechanical fusion of the ankle joint and hindfoot via intramedullary isabela and locking screws. The calcaneal locking screw protrudes posteriorly 5 mm. Prior resection of distal fibula and cuboid bone. SOFT TISSUES:Soft tissue swelling surrounding the foot and ankle. Numerous skin nilton lateral to the ankle. EFFUSION:None visible. OTHER: Negative. XR/XR ankle RT min 3V IMPRESSION: 1. Stable osseous surgical changes without appreciable hardware failure or change in alignment. 2. Soft tissue swelling surrounding the ankle and foot with new skin nilton lateral to the ankle. Electronically authenticated by: TESS JHAVERI Date: 07/08/2023 07:20
--- NOTE | 2023-07-06 | XR_ITS ---
The [address] [address] Patient Name: GEREMIAS ARAYA MRN: [id number] date: 1965 Sex: M Assigned Patient Location: Current Patient Location: Accession/Order Number: [id number] Exam Date: 07/06/2023 15:15 Report Date: 07/08/2023 07:20 At the request of: NAYLA OAKES Procedure: XR foot RT min 3V PROCEDURE: XR ankle RT min 3V, XR foot RT min 3V HISTORY: POST OP IMAGING COMPARISON: XR right ankle and foot 06/27/2023 FINDINGS: BONES:Prior mechanical fusion of the ankle joint and hindfoot via intramedullary isabela and locking screws. The calcaneal locking screw protrudes posteriorly 5 mm. Prior resection of distal fibula and cuboid bone. SOFT TISSUES:Soft tissue swelling surrounding the foot and ankle. Numerous skin nilton lateral to the ankle. EFFUSION:None visible. OTHER: Negative. XR/XR foot RT min 3V IMPRESSION: 1. Stable osseous surgical changes without appreciable hardware failure or change in alignment. 2. Soft tissue swelling surrounding the ankle and foot with new skin nilton lateral to the ankle. Electronically authenticated by: TESS JHAVERI Date: 07/08/2023 07:20
== END 2023-07-06 14:59 | disposition home or self-care (01) ==
LOC: WC 14:59
PROVIDERS: Visit Provider Podiatrist Foot & Ankle Surgery
DX: L97.312 Non-pressure chronic ulcer of right ankle with fat layer exposed (principal); M25.471 Effusion, right ankle; Z98.890 Other specified postprocedural states
CPT/HCPCS: 29445; 73610; 73630

== ENCOUNTER 2023-07-14 15:36 | Outpatient (OUT) | payer MEDICARE, MEDICAID, SELFPAY | END 2023-07-14 15:37 | disposition home or self-care (01) | LOC: WC 15:36 | PROVIDERS: Visit Provider Physician Assistant | DX: L97.312 Non-pressure chronic ulcer of right ankle with fat layer exposed (principal) | CPT/HCPCS: 29445 ==

== ENCOUNTER 2023-07-19 14:37 | Outpatient (OUT) | payer MEDICARE, MEDICAID, SELFPAY ==
--- NOTE | 2023-07-19 | XR_ITS ---
The [address] [address] Patient Name: GEREMIAS ARAYA MRN: [id number] date: 1965 Sex: M Assigned Patient Location: Current Patient Location: Accession/Order Number: [id number] Exam Date: 07/19/2023 14:58 Report Date: 07/19/2023 15:42 At the request of: NAYLA OAKES Procedure: XR ankle RT min 3V PROCEDURE: XR foot RT min 3V, XR ankle RT min 3V COMPARISON: 07/06/2023 HISTORY: RIGHT FOOT PAIN FINDINGS: BONES:Stable ankle/subtalar fusion utilizing a retrograde intramedullary isabela and distally. 2 additional screws traverse the tibiotalar joint. There is plantar rotation of the hindfoot with cranial dislocation of the midfoot in relation to the hindfoot, stable. Moderate to severe degenerative changes with bony remodeling and marginal osteophyte formation. Remote resection of the lateral midfoot. SOFT TISSUES:Diffuse soft tissue swelling EFFUSION:None visible. OTHER: Negative. XR/XR ankle RT min 3V IMPRESSION: Stable postsurgical changes with soft tissue swelling. No mechanical failure Electronically authenticated by: SASHA FLAHERTY Date: 07/19/2023 15:42
--- NOTE | 2023-07-19 | XR_ITS ---
The [address] [address] Patient Name: GEREMIAS ARAYA MRN: [id number] date: 1965 Sex: M Assigned Patient Location: Current Patient Location: Accession/Order Number: [id number] Exam Date: 07/19/2023 14:58 Report Date: 07/19/2023 15:42 At the request of: NAYLA OAKES Procedure: XR foot RT min 3V PROCEDURE: XR foot RT min 3V, XR ankle RT min 3V COMPARISON: 07/06/2023 HISTORY: RIGHT FOOT PAIN FINDINGS: BONES:Stable ankle/subtalar fusion utilizing a retrograde intramedullary isabela and distally. 2 additional screws traverse the tibiotalar joint. There is plantar rotation of the hindfoot with cranial dislocation of the midfoot in relation to the hindfoot, stable. Moderate to severe degenerative changes with bony remodeling and marginal osteophyte formation. Remote resection of the lateral midfoot. SOFT TISSUES:Diffuse soft tissue swelling EFFUSION:None visible. OTHER: Negative. XR/XR foot RT min 3V IMPRESSION: Stable postsurgical changes with soft tissue swelling. No mechanical failure Electronically authenticated by: SASHA FLAHERTY Date: 07/19/2023 15:42
--- OUTSIDE RECORDS SUMMARY | 2023-07-19 14:57 | XMS_ITS | CCD ---
Author Name Unknown Address [address] [place] [address] Organization [facility] Care Team Providers Care Pathology Laboratory Aides Teacher Name Role Phone LENKA ROQUE Attending Unavailable ERICKA MONTIEL Primary Care UnavailEdilberto Rod Primary Care Physician Ericka Dotson Unavailable Unavailable Ericka Muniz Primary Care Physician Unavailab solomon Yates, Ayden Primary Care Physician Unavail able Trudy, Ayden Primary Care Physician Unavail able Trudy, Ayden Primary Care Physician Unavail able Edilberto Zamora Primary Care Physician Ericka Dotson Primary Care Physician UnavailEdilberto Herron Primary Care Physician Ericka Dotson Primary Care Physician Unavailab Ericka David Primary Care Physician Unavailab Ericka David Primary Care Provider [phone] Edilberto Zamora Primary Care Physician Edilberto Pendleton Primary Care Physician Ericka Dotson Primary Care Physician UnavailEricka Enacrnacion Primary Care Provider [phone] Ericka Muniz Primary Care Physician Unavailab WALTER Pro Referring Unavailable ERICKA MUNIZ Primary Care [...] Franky P Primary Care Physician Unavai lable [facility], Franky P Primary Care Physician Unavai lable [facility], Franky P Primary Care Physician Unavai lable NON STAFF Primary Care Provider UnavailSOLE Short Emergency Provider [phone] RADHA Novak Attending Provider [facility] Attending Provider NON STAFF Primary Care Provider UnavailSOLE Short Emergency Provider Dyana, CHERYL Yu Attending Provider RADHA Novak Attending Provider CHERYL Oakes Attending Provider RADHA Novak Attending Provider NON STAFF Primary [...] Farhat Turpin DPM, Franky Day Attending Farhat Muniz MD, Ericka Lane Primary Care Unavailable Ericka Muniz MD Consulting Unavailable [facility] Consulting Unavailable [facility] Consulting Unavailable Bo Pearce Referring Unavailable Flavio WHEELER, Ericka Lane Primary Care Unavailable Todd YEE, Ayanna Fabian Attending Un available Dyana LUNA, Franky aDy Attending Farhat Muniz MD, Ericka Lane Primary [...] daily 0 Active omega-3 acid ethyl esters ([facility]) 1200 mg oral capsule (6 sources) Cumming-3 Fatty Ac ids (FISH OIL) 1200 MG CAPS Take by mouth daily 0 Active Cumming-3 Fatty Acids (FISH OIL) 1200 MG CAPS (1 source) Cumming-3 Fatty Ac ids (FISH OIL) 1200 MG CAPS Take by mouth daily 0 Active Cumming-3 Fatty Acids (Fish Oil) Capsule (4 sources) Start: 04-14-2022 take 1 capsule by mouth once daily Cumming-3 Fatty Acids (Fish Oil) Capsule Active 1000 MG PO Daily April 13, 2022 11:00pm Start: 04-14-2022 take 1 capsule by mouth once d aily Cumming-3 Fatty Acids (Fish Oil) Capsule Active 1000 [...] days. 56 tablet 0 12/28/2019 01/04/2020 Active [id number] 200 actuat albuterol 0.09 mg/actuat metered dose inhaler (20 sources) beta2-Adrenergic Agonist Start: 05-11-2022 take 1 puff(s) by mouth every six hours as needed Ventolin HFA 90 mcg/actuation aerosol inhaler 05/11/2022 INHALE 1 PUFF BY MOUTH EVERY 6 HOURS NEEDED Start: 03-06-2021 take 1 puff(s) by [facility] every six hours as needed Ventolin HFA 90 mcg/actuation aerosol inhaler 03/06/2021 INHALE 1 PUFF BY MOUTH EVERY 6 HOURS NEEDED Start: 10-20-2020 take 1 puff(s) by [facility] every six hours as needed Ventolin HFA 90 mcg/actuation inhalation HFA aerosol inhaler 10/20/2020 INHALE 1 PUFF BY MOUTH EVERY 6 HOURS NEEDED Start: 04-23-2020 take 1 puff(s) by [facility] every six hours as needed Ventolin HFA 90 mcg/actuation inhalation HFA aerosol inhaler 04/23/2020 INHALE 1 PUFF BY MOUTH EVERY 6 HOURS NEEDED Start: 03-14-2019 take 1 puff(s) by [facility] every six hours as needed Ventolin HFA [...] daily Start: 03-01-2017 take 2 tablets by [facility] once daily Vitamin B-12 1,000 mcg oral [...] Results Test Name Value Interpretation Reference Range Facility Physician Orderon 06-16-2023 Physician Order [id number] [facility] Laboratory - Chemistry and C hemistry - challengeon 07-27-2022 25-hydroxyvitamin D3 [Mass/Vol] 26.8 ng/mL Invalid Interpretation Code 30.0-100.0 [facility] Albumin (U) [Mass/Vol] < 12.0 Invalid Interpretation Code < 17.0 ug/mL [facility] Albumin [Mass/Vol] 4.50 g/dL Invalid Interpretation Code 3.7-5.0 [facility] Albumin/Globulin [Mass ratio] 1.3 {ratio} Invalid Interpretation Code 1.0-2.4 [facility] ALP [Catalytic activity/Vol] 74.0 U/L Invalid Interpretation Code 31-155 [facility] ALT [Catalytic activity/Vol] 24.0 U/L Invalid Interpretation Code 0-50 [facility] Anion gap [Moles/Vol] 16 mmol/L Invalid Interpretation Code 10-20 [facility] AST [Catalytic activity/Vol] 14.0 U/L Invalid Interpretation Code 0-40 [facility] Bilirubin [Mass/Vol] 0.30 mg/dL Invalid Interpretation Code 0.0-1.0 [facility] Bilirubin Ql (U) Negative Invalid Interpretation Code Negative [facility] Calcium [Mass/Vol] 10.20 mg/dL Invalid Interpretation Code 8.5-10.8 [facility] Chloride [Moles/Vol] 96.0 mmol/L Invalid Interpretation Code 100-112 [facility] CO2 [Moles/Vol] 26.0 mmol/L Invalid Interpretation Code 23-30 [facility] Creatinine (U) [Mass/Vol] 41.10 mg/dL Invalid Interpretation Code Not Estab. mg/dL [facility] Creatinine [Mass/Vol] 1.0 mg/dL Invalid Interpretation Code 0.5-1.5 [facility] GFR/1.73 sq M.predicted among non-blacks MDRD (S/P/Bld) [Vol rate/Area] 77 mL/min/{1.73_m2} Invalid Interpretation Code [facility] Glucose [Mass/Vol] 134.0 mg/dL Invalid Interpretation Code 80-117 [facility] Ketones Ql (U) Negative Invalid Interpretation Code Negative [facility] Parathyrin.intact [Mass/Vol] 24 pg/mL Invalid Interpretation Code 12-65 [facility] pH (U) 6.5 [pH] Invalid Interpretation Code 5.0-9.0 [facility] Phosphate [Mass/Vol] 3.60 mg/dL Invalid Interpretation Code 2.5-4.5 [facility] Potassium [Moles/Vol] 4.60 mmol/L Invalid Interpretation Code 3.5-5.3 [facility] Protein [Mass/Vol] 7.90 g/dL Invalid Interpretation Code 6.3-7.9 [facility] Sodium [Moles/Vol] 133.0 mmol/L Invalid Interpretation Code 135-148 [facility] Specific gravity (U) [Rel density] 1.005 Invalid Interpretation Code 1.003-1.030 [facility] Urea nitrogen [Mass/Vol] 23.0 mg/dL Invalid Interpretation Code 7-25 [facility] Urea nitrogen/Creatinine [Mass ratio] 23 mg/mg Invalid Interpretation Code 6-20 [facility] Urobilinogen (U) [Mass/Vol] normal Invalid Interpretation Code normal [facility] Laboratory - Hematology and Cell countson 07-27-2022 HbA1c (Bld) [Mass fraction] 6.70 % Invalid Interpretation Code 4.3-6.3 [facility] Hemoglobin Ql (U) Negative Invalid Interpretation Code Negative [facility] Laboratory - Specimen inform ationon 07-27-2022 Clarity (U) clear Invalid Interpretation Code Clear [facility] Color (U) yellow Invalid Interpretation Code yellow [facility] Laboratory - Urinalysison Glucose Test strip (U) [Mass/Vol] 4+ Invalid Interpretation Code Negative [facility] Leukocyte esterase Test strip Ql (U) Negative Invalid Interpretation Code Negative [facility] Nitrite Ql (U) Negative Invalid Interpretation Code Negative [facility] Protein Ql (U) Negative Invalid Interpretation Code Negative [facility] No Panel Informationon 07-27 Body mass index (BMI) [Percentile] Per age and sex 0.1 {percentile} Invalid Interpretation Code [facility] Pvhhyb-cge-sofsby Per age and sex 0.1 {percentile} Invalid Interpretation Code [facility] 146.0 mg/dL Invalid Interpretation Code [facility] Patient did NOT brin g meter Invalid Interpretation Code 70-[address] foot RT wo conon 05-26-20 CT foot RT wo con [facility] [place] [address] [place] [address] CT Scan Report Signed Patient: Geremias Melchor MR#: [id number] 5 : 1965 Acct:[id number] Age/Sex: 56 / M ADM Date: 05/26/22 Loc: [facility] Room: Type[facility] Attending Dr: Nayla Oakes DPM, MS Copies [...] Ericka Erickson M.D.05/26/2022 5:07 PM Dictation Location: [facility] Transcribed By: [facility] 05/26/221706 Dictated By: Ericka Erickson II, MD 05/26/221699 Signed By: 05/26/221706 [facility] MR foot RT wo/w conon 2021 MR foot RT wo/w con [facility] [place] [address] MRI Report Signed Patient: Geremias Melchor MR#: [id number] 5 : 1965 Acct:[id number] Age/Sex: 56 / M ADM Date: 04/22/22 Loc: MR Room: Type: [facility] Attending Dr: Franky Turpin DPM Copies to: Franky Turpin DPM Ordering Provider: Franky Turipn DPM Date of Service: 04/22/22 MR/MR foot [...] Dylan Galdamez M.D.04/23/2022 1:07 PM Dictation Location: [facility] Transcribed By: [facility] 04/23/221306 Dictated By: Dylan Galdamez DO 04/23/22 1256 Signed By: 04/23/221306 Normal [facility] MR ankle RT wo/w conon 04-22 MR ankle RT wo/w con [facility] [place] [address] [place] [address] MRI Report Signed Patient: Geremias Melchor MR#: [id number] 5 : 1965 Acct:[id number] Age/Sex: 56 / M ADM Date: 04/21/22 Loc: MR Room: Type: [facility] Attending Dr: Franky Turpin DPM Copies to: [...] Dylan Galdamez M.D.04/22/2022 9:42 AM Dictation Location: [place] [address] Transcribed By: KINJAL 04/22/22941 Dictated By: Dylan Galdamez DO 04/22/22916 Signed By: 04/22/22941 Normal [facility] US venous duplex LE RTon US venous duplex LE RT [facility] [place] [address] Ultrasound Report Signed Patient: Geremias Melchor MR#: [id number] 5 : 1965 Acct:[id number] Age/Sex: 56 / M ADM Date: 04/01/22 Loc: ER Room: Type: [facility] Attending Dr: Ordering Provider: Madison Mosher [...] Morgan Vallejo MD04/02/2022 12:48 PM Dictation Location: [place] [address] Tech: Marilyn Horvath Transcribed By: KINJAL 04/02/22 1248 Dictated By: Morgan Vallejo MD 04/02/22 1248 Signed By: 04/02/228 [facility] XR foot RT min 3V*on 022 XR foot RT min 3V* [facility] [place] [address] [place] [address] XRay Report Signed Patient: Geremias Melchor MR#: [id number] 5 : 1965 Acct:[id number] Age/Sex: 56 / M ADM Date: 04/01/22 Loc: ER Room: Type: [facility] ER Attending Dr: Copies to: Madison Mosher [...] SIGNIFICANCE. Impression dictated by: Dionte Torres Jr., D.OMelva04/01/2022 7:13 PM Dictation Location: [place] [address] Transcribed By: [facility] 04/01/221912 Dictated By: Dionte Torres Jr, DO 04/01/221906 Signed By: 04/01/221912 [facility] Laboratory - Chemistry and C hemistry - challengeon 02-17-2022 Albumin (U) [Mass/Vol] 17.1 Invalid Interpretation Code <17.0 [facility] Albumin [Mass/Vol] 4.80 g/dL Invalid Interpretation Code 3.7-5.0 [facility] Albumin/Creatinine DL <= 20 mg/L (U) [Mass ratio] 26.8 mg/g Invalid Interpretation Code 0.0-30.0 [facility] Albumin/Globulin [Mass ratio] 1.7 {ratio} Invalid Interpretation Code 1.0-2.4 [facility] ALP [Catalytic activity/Vol] 65.0 U/L Invalid Interpretation Code 31-155 [facility] ALT [Catalytic activity/Vol] 51.0 U/L Invalid Interpretation Code 0-50 [facility] Anion gap [Moles/Vol] 13 mmol/L Invalid Interpretation Code 10-20 [facility] AST [Catalytic activity/Vol] 30.0 U/L Invalid Interpretation Code 0-40 [facility] Bilirubin [Mass/Vol] 0.50 mg/dL Invalid Interpretation Code 0.0-1.0 [facility] Calcium [Mass/Vol] 10.80 mg/dL Invalid Interpretation Code 8.5-10.8 [facility] Chloride [Moles/Vol] 99.0 mmol/L Invalid Interpretation Code 100-112 [facility] Cholesterol [Mass/Vol] 214.0 mg/dL Invalid Interpretation Code 0-200 [facility] Cholesterol in HDL [Mass/Vol] 57.0 mg/dL Invalid Interpretation Code 36-100 [facility] Cholesterol in LDL [Mass/Vol] 133.0 mg/dL Invalid Interpretation Code 0-130 [facility] Cholesterol in VLDL [Mass/Vol] 24.0 mg/dL Invalid Interpretation Code 0-39 [facility] Cholesterol.total/C holesterol in HDL [Mass ratio] 4 {ratio} Invalid Interpretation Code [facility] CO2 [Moles/Vol] 30.0 mmol/L Invalid Interpretation Code 23-30 [facility] Creatinine (U) [Mass/Vol] 63.80 mg/dL Invalid Interpretation Code Not Estab. mg/dL [facility] Creatinine [Mass/Vol] 1.10 mg/dL Invalid Interpretation Code 0.5-1.5 [facility] GFR/1.73 sq M.predicted among non-blacks MDRD (S/P/Bld) [Vol rate/Area] 69 mL/min/{1.73_m2} Invalid Interpretation Code [facility] Glucose [Mass/Vol] 128.0 mg/dL Invalid Interpretation Code 80-117 [facility] Potassium [Moles/Vol] 4.60 mmol/L Invalid Interpretation Code 3.5-5.3 [facility] Prostate specific Ag [Mass/Vol] 0.85 ng/mL Invalid Interpretation Code 0.00-4.00 [facility] Protein [Mass/Vol] 7.60 g/dL Invalid Interpretation Code 6.3-7.9 [facility] Sodium [Moles/Vol] 137.0 mmol/L Invalid Interpretation Code 135-148 [facility] Triglyceride [Mass/Vol] 120.0 mg/dL Invalid Interpretation Code 30-150 [facility] Urea nitrogen [Mass/Vol] 16.0 mg/dL Invalid Interpretation Code 7-25 [facility] Urea nitrogen/Creatinine [Mass ratio] 15 mg/mg Invalid Interpretation Code 6-20 [facility] Laboratory - Hematology and Cell countson 02-17-2022 HbA1c (Bld) [Mass fraction] 6.50 % Invalid Interpretation Code 4.3-6.3 [facility] No Panel Informationon 02-17 140.0 mg/dL Invalid Interpretation Code [facility] Laboratory - Chemistry and C hemistry - challengeon 01-15-2022 Albumin (U) [Mass/Vol] < 12.0 Invalid Interpretation Code < 17.0 ug/mL [facility] Albumin [Mass/Vol] 4.70 g/dL Invalid Interpretation Code 3.7-5.0 [facility] Albumin/Globulin [Mass ratio] 1.6 {ratio} Invalid Interpretation Code 1.0-2.4 [facility] ALP [Catalytic activity/Vol] 66.0 U/L Invalid Interpretation Code 31-155 [facility] ALT [Catalytic activity/Vol] 38.0 U/L Invalid Interpretation Code 0-50 [facility] Anion gap [Moles/Vol] 15 mmol/L Invalid Interpretation Code 10-20 [facility] AST [Catalytic activity/Vol] 23.0 U/L Invalid Interpretation Code 0-40 [facility] Bilirubin [Mass/Vol] 0.40 mg/dL Invalid Interpretation Code 0.0-1.0 [facility] Bilirubin Ql (U) Negative Invalid Interpretation Code Negative [facility] Calcium [Mass/Vol] 10.40 mg/dL Invalid Interpretation Code 8.5-10.8 [facility] Chloride [Moles/Vol] 101.0 mmol/L Invalid Interpretation Code 100-112 [facility] CO2 [Moles/Vol] 28.0 mmol/L Invalid Interpretation Code 23-30 [facility] Creatinine (U) [Mass/Vol] 60.60 mg/dL Invalid Interpretation Code Not Estab. mg/dL [facility] Creatinine [Mass/Vol] 1.10 mg/dL Invalid Interpretation Code 0.5-1.5 [facility] Gamma glutamyl transferase [Catalytic activity/Vol] 62 U/L Invalid Interpretation Code 7-51 [facility] GFR/1.73 sq M.predicted among non-blacks MDRD (S/P/Bld) [Vol rate/Area] 69 mL/min/{1.73_m2} Invalid Interpretation Code [facility] Glucose [Mass/Vol] 116.0 mg/dL Invalid Interpretation Code 80-117 [facility] Ketones Ql (U) 1+ Invalid Interpretation Code Negative [facility] pH (U) 6 [pH] Invalid Interpretation Code 5.0-9.0 [facility] Potassium [Moles/Vol] 4.80 mmol/L Invalid Interpretation Code 3.5-5.3 [facility] Protein [Mass/Vol] 7.70 g/dL Invalid Interpretation Code 6.3-7.9 [facility] Sodium [Moles/Vol] 139.0 mmol/L Invalid Interpretation Code 135-148 [facility] Specific gravity (U) [Rel density] 1.010 Invalid Interpretation Code 1.003-1.030 [facility] Urea nitrogen [Mass/Vol] 17.0 mg/dL Invalid Interpretation Code 7-25 [facility] Urea nitrogen/Creatinine [Mass ratio] 15 mg/mg Invalid Interpretation Code 6-20 [facility] Urobilinogen (U) [Mass/Vol] normal Invalid Interpretation Code normal [facility] Laboratory - Hematology and Cell countson 01-15-2022 Erythrocyte distribution width (RBC) [Ratio] 12.50 % Invalid Interpretation Code 11.5-15.5 [facility] HbA1c (Bld) [Mass fraction] 6.60 % Invalid Interpretation Code 4.3-6.3 [facility] Hematocrit (Bld) [Volume fraction] 49.80 % Invalid Interpretation Code 37.8-51.0 [facility] Hemoglobin (Bld) [Mass/Vol] 16.40 g/dL Invalid Interpretation Code 12.6-17.0 [facility] Hemoglobin Ql (U) Negative Invalid Interpretation Code Negative [facility] MCH (RBC) [Entitic mass] 31.90 pg Invalid Interpretation Code 25.7-33.8 [facility] MCHC (RBC) [Mass/Vol] 32.90 g/dL Invalid Interpretation Code 32.0-36.0 [facility] MCV (RBC) [Entitic vol] 96.90 fL Invalid Interpretation Code 81.0-100.2 [facility] Platelet mean volume (Bld) [Entitic vol] 9.30 fL Invalid Interpretation Code 8.3-11.5 [facility] Platelets (Bld) [#/Vol] 216.0 10*3/uL Invalid Interpretation Code 150-400 [facility] RBC (Bld) [#/Vol] 5.140 10*6/uL Invalid Interpretation Code 4.34-5.61 [facility] WBC (Bld) [#/Vol] 7.30 10*3/uL Invalid Interpretation Code 3.9-10.3 [facility] Laboratory - Specimen inform ationon 01-15-2022 Clarity (U) clear Invalid Interpretation Code Clear [facility] Color (U) yellow Invalid Interpretation Code yellow [facility] Laboratory - Urinalysison Glucose Test strip (U) [Mass/Vol] 4+ Invalid Interpretation Code Negative [facility] Leukocyte esterase Test strip Ql (U) Negative Invalid Interpretation Code Negative [facility] Nitrite Ql (U) Negative Invalid Interpretation Code Negative [facility] Protein Ql (U) Negative Invalid Interpretation Code Negative [facility] No Panel Informationon 01-15 143.0 mg/dL Invalid Interpretation Code [facility] Glucose Meter Check NOT Performed Invalid Interpretation Code 70-117 [facility] C Woundon 09-19-2021 C Wound - ---- Final Moderate Growth of Staphylococcus aureus isolated and . Scant Growth of Normal skin baldemar isolated ORGANISM SA ---- SUSCEPTIBILITY --- ORGANISM ID: 1 ANTIBIOTIC INTERPRETATION BILL STATUS POS Staphylococcus aureus Ciprofloxacin S <=0.5 V Erythromycin R >=8 V Gentamicin S <=0.5 V Levofloxacin S 0.25 V Moxifloxacin S <=0.25 V Penicillin S 0.06 V Oxacillin S <=0.25 V Quinapristin/Dalfopri stin S <=0.25 V Rifampin S <=0.5 V Trimethoprim/Sulfa S <=10 V Tetracycline S <=1 V Vancomycin S 1 V Normal [facility] Comment on above: Performed By: #### W DC #### [facility] (DEFAULT) [address] [place] [address] [facility] [address] [place] [address] Laboratory - Chemistry and C hemistry - challengeon 08-18-2021 Albumin [Mass/Vol] 4.70 g/dL Invalid Interpretation Code 3.7-5.0 [facility] Albumin/Globulin [Mass ratio] 1.7 {ratio} Invalid Interpretation Code 1.0-2.4 [facility] ALP [Catalytic activity/Vol] 62.0 U/L Invalid Interpretation Code 31-155 [facility] ALT [Catalytic activity/Vol] 57.0 U/L Invalid Interpretation Code 0-50 [facility] Anion gap [Moles/Vol] 16 mmol/L Invalid Interpretation Code 10-20 [facility] AST [Catalytic activity/Vol] 33.0 U/L Invalid Interpretation Code 0-40 [facility] Bilirubin [Mass/Vol] 0.40 mg/dL Invalid Interpretation Code 0.0-1.0 [facility] Calcium [Mass/Vol] 10.20 mg/dL Invalid Interpretation Code 8.5-10.8 [facility] Chloride [Moles/Vol] 99.0 mmol/L Invalid Interpretation Code 100-112 [facility] Cholesterol [Mass/Vol] 217.0 mg/dL Invalid Interpretation Code 0-200 [facility] Cholesterol in HDL [Mass/Vol] 49.0 mg/dL Invalid Interpretation Code 36-100 [facility] Cholesterol in LDL [Mass/Vol] 131.0 mg/dL Invalid Interpretation Code 0-130 [facility] Cholesterol in VLDL [Mass/Vol] 37.0 mg/dL Invalid Interpretation Code 0-39 [facility] Cholesterol.total/C holesterol in HDL [Mass ratio] 4 {ratio} Invalid Interpretation Code [facility] CO2 [Moles/Vol] 28.0 mmol/L Invalid Interpretation Code 23-30 [facility] Creatinine [Mass/Vol] 1.10 mg/dL Invalid Interpretation Code 0.5-1.5 [facility] Gamma glutamyl transferase [Catalytic activity/Vol] 98 U/L Invalid Interpretation Code 7-51 [facility] GFR/1.73 sq M.predicted among non-blacks MDRD (S/P/Bld) [Vol rate/Area] 69 mL/min/{1.73_m2} Invalid Interpretation Code [facility] Glucose [Mass/Vol] 127.0 mg/dL Invalid Interpretation Code 80-117 [facility] Potassium [Moles/Vol] 4.40 mmol/L Invalid Interpretation Code 3.5-5.3 [facility] Protein [Mass/Vol] 7.50 g/dL Invalid Interpretation Code 6.3-7.9 [facility] Sodium [Moles/Vol] 139.0 mmol/L Invalid Interpretation Code 135-148 [facility] Triglyceride [Mass/Vol] 186.0 mg/dL Invalid Interpretation Code 30-150 [facility] Urea nitrogen [Mass/Vol] 19.0 mg/dL Invalid Interpretation Code 7-25 [facility] Urea nitrogen/Creatinine [Mass ratio] 17 mg/mg Invalid Interpretation Code 6-20 [facility] Laboratory - Hematology and Cell countson 08-18-2021 Erythrocyte distribution width (RBC) [Ratio] 12.60 % Invalid Interpretation Code 11.5-15.5 [facility] HbA1c (Bld) [Mass fraction] 6.20 % Invalid Interpretation Code 4.3-6.3 [facility] Hematocrit (Bld) [Volume fraction] 48.40 % Invalid Interpretation Code 37.8-51.0 [facility] Hemoglobin (Bld) [Mass/Vol] 16.10 g/dL Invalid Interpretation Code 12.6-17.0 [facility] MCH (RBC) [Entitic mass] 32.40 pg Invalid Interpretation Code 25.7-33.8 [facility] MCHC (RBC) [Mass/Vol] 33.30 g/dL Invalid Interpretation Code 32.0-36.0 [facility] MCV (RBC) [Entitic vol] 97.40 fL Invalid Interpretation Code 81.0-100.2 [facility] Platelet mean volume (Bld) [Entitic vol] 10.10 fL Invalid Interpretation Code 8.3-11.5 [facility] Platelets (Bld) [#/Vol] 214.0 10*3/uL Invalid Interpretation Code 150-400 [facility] RBC (Bld) [#/Vol] 4.970 10*6/uL Invalid Interpretation Code 4.34-5.61 [facility] WBC (Bld) [#/Vol] 5.90 10*3/uL Invalid Interpretation Code 3.9-10.3 [facility] No Panel Informationon 08-18 131.0 mg/dL Invalid Interpretation Code [facility] No Specimen, Unable to Void Invalid Interpretation Code [facility] Laboratory - Chemistry and C hemistry - challengeon 03-19-2021 Albumin [Mass/Vol] 4.60 g/dL Invalid Interpretation Code 3.7-4.5 [facility] Albumin/Globulin [Mass ratio] 1.4 {ratio} Invalid Interpretation Code 1.0-2.4 [facility] ALP [Catalytic activity/Vol] 75.0 U/L Invalid Interpretation Code 31-155 [facility] ALT [Catalytic activity/Vol] 41.0 U/L Invalid Interpretation Code 0-50 [facility] Anion gap [Moles/Vol] 14 mmol/L Invalid Interpretation Code 10-20 [facility] AST [Catalytic activity/Vol] 26.0 U/L Invalid Interpretation Code 0-40 [facility] Bilirubin [Mass/Vol] 0.40 mg/dL Invalid Interpretation Code 0.0-1.0 [facility] Bilirubin Ql (U) Negative Invalid Interpretation Code Negative [facility] Calcium [Mass/Vol] 10.10 mg/dL Invalid Interpretation Code 8.5-10.8 [facility] Chloride [Moles/Vol] 99.0 mmol/L Invalid Interpretation Code 100-112 [facility] CO2 [Moles/Vol] 28.0 mmol/L Invalid Interpretation Code 23-30 [facility] Creatinine [Mass/Vol] 0.90 mg/dL Invalid Interpretation Code 0.5-1.5 [facility] GFR/1.73 sq M.predicted among non-blacks MDRD (S/P/Bld) [Vol rate/Area] 87 mL/min/{1.73_m2} Invalid Interpretation Code [facility] Glucose [Mass/Vol] 135.0 mg/dL Invalid Interpretation Code 80-117 [facility] Ketones Ql (U) Negative Invalid Interpretation Code Negative [facility] Parathyrin.intact [Mass/Vol] 22 pg/mL Invalid Interpretation Code 12-65 [facility] pH (U) 6 [pH] Invalid Interpretation Code 5.0-9.0 [facility] Phosphate [Mass/Vol] 3.50 mg/dL Invalid Interpretation Code 2.5-4.5 [facility] Potassium [Moles/Vol] 4.50 mmol/L Invalid Interpretation Code 3.5-5.3 [facility] Protein [Mass/Vol] 7.80 g/dL Invalid Interpretation Code 6.3-7.9 [facility] Sodium [Moles/Vol] 136.0 mmol/L Invalid Interpretation Code 135-148 [facility] Specific gravity (U) [Rel density] 1.015 Invalid Interpretation Code 1.003-1.030 [facility] Urea nitrogen [Mass/Vol] 15.0 mg/dL Invalid Interpretation Code 7-25 [facility] Urea nitrogen/Creatinine [Mass ratio] 17 mg/mg Invalid Interpretation Code 6-20 [facility] Urobilinogen (U) [Mass/Vol] normal Invalid Interpretation Code normal [facility] - Hematology and Cell countson 03-19-2021 Erythrocyte distribution width (RBC) [Ratio] 12.80 % Invalid Interpretation Code 11.5-15.5 [facility] HbA1c (Bld) [Mass fraction] 6.40 % Invalid Interpretation Code 4.3-6.3 [facility] Hematocrit (Bld) [Volume fraction] 49.0 % Invalid Interpretation Code 37.8-51.0 [facility] Hemoglobin (Bld) [Mass/Vol] 16.60 g/dL Invalid Interpretation Code 12.6-17.0 [facility] Hemoglobin Ql (U) Negative Invalid Interpretation Code Negative [facility] MCH (RBC) [Entitic mass] 32.10 pg Invalid Interpretation Code 25.7-33.8 [facility] MCHC (RBC) [Mass/Vol] 33.90 g/dL Invalid Interpretation Code 32.0-36.0 [facility] MCV (RBC) [Entitic vol] 94.80 fL Invalid Interpretation Code 81.0-100.2 [facility] Platelet mean volume (Bld) [Entitic vol] 9.60 fL Invalid Interpretation Code 8.3-11.5 [facility] Platelets (Bld) [#/Vol] 257.0 10*3/uL Invalid Interpretation Code 150-400 [facility] RBC (Bld) [#/Vol] 5.170 10*6/uL Invalid Interpretation Code 4.34-5.61 [facility] WBC (Bld) [#/Vol] 6.90 10*3/uL Invalid Interpretation Code 3.9-10.3 [facility] - Specimen inform ationon 03-19-2021 Clarity (U) clear Invalid Interpretation Code Clear [facility] Color (U) yellow Invalid Interpretation Code yellow [facility] - Urinalysison Glucose Test strip (U) [Mass/Vol] 4+ Invalid Interpretation Code Negative [facility] Leukocyte esterase Test strip Ql (U) Negative Invalid Interpretation Code Negative [facility] Nitrite Ql (U) Negative Invalid Interpretation Code Negative [facility] Protein Ql (U) Negative Invalid Interpretation Code Negative [facility] No Panel Informationon 03-19 137.0 mg/dL Invalid Interpretation Code [facility] patient's meter brok e and doesn't have new one yet Invalid Interpretation Code 70-117 [facility] - Chemistry and C hemistry - challengeon 12-23-2020 Albumin (U) [Mass/Vol] < 12.0 Invalid Interpretation Code < 17.0 ug/mL [facility] Albumin [Mass/Vol] 4.40 g/dL Invalid Interpretation Code 3.7-4.5 [facility] Albumin/Globulin [Mass ratio] 1.5 {ratio} Invalid Interpretation Code 1.0-2.4 [facility] ALP [Catalytic activity/Vol] 69.0 U/L Invalid Interpretation Code 31-155 [facility] ALT [Catalytic activity/Vol] 30.0 U/L Invalid Interpretation Code 0-50 [facility] Anion gap [Moles/Vol] 13 mmol/L Invalid Interpretation Code 10-20 [facility] AST [Catalytic activity/Vol] 20.0 U/L Invalid Interpretation Code 0-40 [facility] Bilirubin [Mass/Vol] 0.40 mg/dL Invalid Interpretation Code 0.0-1.0 [facility] Bilirubin Ql (U) Negative Invalid Interpretation Code Negative [facility] Calcium [Mass/Vol] 9.80 mg/dL Invalid Interpretation Code 8.5-10.8 [facility] Chloride [Moles/Vol] 98.0 mmol/L Invalid Interpretation Code 100-112 [facility] Cholesterol [Mass/Vol] 207.0 mg/dL Invalid Interpretation Code 0-200 [facility] Cholesterol in HDL [Mass/Vol] 40.0 mg/dL Invalid Interpretation Code 36-100 [facility] Cholesterol in LDL [Mass/Vol] 100.0 mg/dL Invalid Interpretation Code 0-130 [facility] Cholesterol in VLDL [Mass/Vol] 67.0 mg/dL Invalid Interpretation Code 0-39 [facility] Cholesterol.total/C holesterol in HDL [Mass ratio] 5 {ratio} Invalid Interpretation Code [facility] CO2 [Moles/Vol] 29.0 mmol/L Invalid Interpretation Code 23-30 [facility] Creatinine (U) [Mass/Vol] 31.90 mg/dL Invalid Interpretation Code Not Estab. mg/dL [facility] Creatinine [Mass/Vol] 1.0 mg/dL Invalid Interpretation Code 0.5-1.5 [facility] GFR/1.73 sq M.predicted among non-blacks MDRD (S/P/Bld) [Vol rate/Area] 77 mL/min/{1.73_m2} Invalid Interpretation Code [facility] Glucose [Mass/Vol] 113.0 mg/dL Invalid Interpretation Code 80-117 [facility] Ketones Ql (U) Negative Invalid Interpretation Code Negative [facility] pH (U) 6 [pH] Invalid Interpretation Code 5.0-9.0 [facility] Potassium [Moles/Vol] 4.40 mmol/L Invalid Interpretation Code 3.5-5.3 [facility] Prostate specific Ag [Mass/Vol] 0.76 ng/mL Invalid Interpretation Code 0.00-4.00 [facility] Protein [Mass/Vol] 7.30 g/dL Invalid Interpretation Code 6.3-7.9 [facility] Sodium [Moles/Vol] 136.0 mmol/L Invalid Interpretation Code 135-148 [facility] Specific gravity (U) [Rel density] 1.005 Invalid Interpretation Code 1.003-1.030 [facility] Triglyceride [Mass/Vol] 334.0 mg/dL Invalid Interpretation Code 30-150 [facility] Urea nitrogen [Mass/Vol] 15.0 mg/dL Invalid Interpretation Code 7-25 [facility] Urea nitrogen/Creatinine [Mass ratio] 15 mg/mg Invalid Interpretation Code 6-20 [facility] Urobilinogen (U) [Mass/Vol] normal Invalid Interpretation Code normal [facility] - Hematology and Cell countson 12-23-2020 Erythrocyte distribution width (RBC) [Ratio] 12.90 % Invalid Interpretation Code 11.5-15.5 [facility] HbA1c (Bld) [Mass fraction] 6.30 % Invalid Interpretation Code 4.3-6.3 [facility] Hematocrit (Bld) [Volume fraction] 48.0 % Invalid Interpretation Code 37.8-51.0 [facility] Hemoglobin (Bld) [Mass/Vol] 16.40 g/dL Invalid Interpretation Code 12.6-17.0 [facility] Hemoglobin Ql (U) Negative Invalid Interpretation Code Negative [facility] MCH (RBC) [Entitic mass] 32.20 pg Invalid Interpretation Code 25.7-33.8 [facility] MCHC (RBC) [Mass/Vol] 34.20 g/dL Invalid Interpretation Code 32.0-36.0 [facility] MCV (RBC) [Entitic vol] 94.10 fL Invalid Interpretation Code 81.0-100.2 [facility] Platelet mean volume (Bld) [Entitic vol] 9.30 fL Invalid Interpretation Code 8.3-11.5 [facility] Platelets (Bld) [#/Vol] 265.0 10*3/uL Invalid Interpretation Code 150-400 [facility] RBC (Bld) [#/Vol] 5.10 10*6/uL Invalid Interpretation Code 4.34-5.61 [facility] WBC (Bld) [#/Vol] 7.30 10*3/uL Invalid Interpretation Code 3.9-10.3 [facility] - Specimen inform ationon 12-23-2020 Clarity (U) clear Invalid Interpretation Code Clear [facility] Collection time (Andrei) [Date/time] 10:56 am Invalid Interpretation Code [facility] Color (U) yellow Invalid Interpretation Code yellow [facility] - Urinalysison Glucose Test strip (U) [Mass/Vol] 4+ Invalid Interpretation Code Negative [facility] Leukocyte esterase Test strip Ql (U) Negative Invalid Interpretation Code Negative [facility] Nitrite Ql (U) Negative Invalid Interpretation Code Negative [facility] Protein Ql (U) Negative Invalid Interpretation Code Negative [facility] No Panel Informationon 12-23 134.0 mg/dL Invalid Interpretation Code [facility] - Chemistry and C hemistry - challengeon 09-09-2020 Albumin/Globulin [Mass ratio] 1.2 {ratio} Invalid Interpretation Code 1.0-2.4 [facility] Bilirubin Ql (U) Negative Invalid Interpretation Code Negative [facility] Ketones Ql (U) Negative Invalid Interpretation Code Negative [facility] Urobilinogen (U) [Mass/Vol] normal Invalid Interpretation Code normal [facility] - Urinalysison Leukocyte esterase Test strip Ql (U) Negative Invalid Interpretation Code Negative [facility] Nitrite Ql (U) Negative Invalid Interpretation Code Negative [facility] Protein Ql (U) Negative Invalid Interpretation Code Negative [facility] Metabolic Panelon 09-09-2020 Albumin [Mass/Vol] 4.40 g/dL Invalid Interpretation Code 3.7-4.5 [facility] ALP [Catalytic activity/Vol] 81.0 U/L Invalid Interpretation Code 31-155 [facility] ALT [Catalytic activity/Vol] 57.0 U/L Invalid Interpretation Code 0-50 [facility] Anion gap [Moles/Vol] 13 mmol/L Invalid Interpretation Code 10-20 [facility] AST [Catalytic activity/Vol] 36.0 U/L Invalid Interpretation Code 0-40 [facility] Bilirubin [Mass/Vol] 0.60 mg/dL Invalid Interpretation Code 0.0-1.0 [facility] Calcium [Mass/Vol] 11.0 mg/dL Invalid Interpretation Code 8.5-10.8 [facility] Chloride [Moles/Vol] 97.0 mmol/L Invalid Interpretation Code 100-112 [facility] CO2 [Moles/Vol] 27.0 mmol/L Invalid Interpretation Code 23-30 [facility] Creatinine [Mass/Vol] 1.60 mg/dL Invalid Interpretation Code 0.5-1.5 [facility] GFR/1.73 sq M predicted among non-blacks MDRD (S/P/Bld) [Vol rate/Area] 45 mL/min/{1.73_m2} Invalid Interpretation Code [facility] Glucose [Mass/Vol] 148.0 mg/dL Invalid Interpretation Code 80-117 [facility] Glucose [Mass/Vol] Patient did not brin g strips for meter 70-117 [facility] HbA1c (Bld) [Mass fraction] 6.90 % Invalid Interpretation Code 4.3-6.3 [facility] Potassium [Moles/Vol] 4.90 mmol/L Invalid Interpretation Code 3.5-5.3 [facility] Protein [Mass/Vol] 8.20 g/dL Invalid Interpretation Code 6.3-7.9 [facility] Sodium [Moles/Vol] 132.0 mmol/L Invalid Interpretation Code 135-148 [facility] Urea nitrogen [Mass/Vol] 23.0 mg/dL Invalid Interpretation Code 7-25 [facility] Urea nitrogen/Creatinine [Mass ratio] 14 mg/mg Invalid Interpretation Code 6-20 [facility] No Panel Informationon 09-09 Patient did not brin g strips for meter Invalid Interpretation Code 70-117 [facility] Otheron 09-09-2020 Albumin/Globulin [Mass ratio] 1.2 (calc) 1.0-2.4 [facility] Bilirubin Ql (U) Negative Negative [facility] Glucose Test strip (U) [Mass/Vol] 4+ Invalid Interpretation Code Negative [facility] Hemoglobin Ql (U) Trace Invalid Interpretation Code Negative [facility] Nitrite Ql (U) Negative Negative [facility] pH (U) 5 [pH] Invalid Interpretation Code 5.0-9.0 [facility] Protein Ql (U) Negative Negative [facility] Urobilinogen Test strip (U) [Mass/Vol] normal normal [facility] 151.0 mg/dL Invalid Interpretation Code [facility] Urinalysison 09-09-2020 Clarity (U) Clear Invalid Interpretation Code Clear [facility] Color (U) yellow Invalid Interpretation Code yellow [facility] Ketones Ql (U) Negative Negative [facility] Leukocyte esterase Test strip Ql (U) Negative Negative [facility] Specific gravity (U) [Rel density] 1.015 Invalid Interpretation Code 1.003-1.030 [facility] Coding Summaryon 06-20-2020 Coding Summary CODING DATE: 06/20/2020 [facility] STATUS: Home PAYOR: Medicare APC DESCRIPTION 5791 [...] result in slightly different terminology. Coded By: Bright Aguilera' Date Saved: 06/20/2020 12:49 pm [facility] Coding Summary CODING DATE: 06/20/2020 [facility] STATUS: Home PAYOR: Medicare APC DESCRIPTION 5791 [...] result in slightly different terminology. Coded By: Bright Aguilera' Date Saved: 06/20/2020 12:47 pm Normal [facility] .Auto Diff 06-17-2020 Auto [place] % 7 % Normal 07-22 [facility] Comment on above: Performed By: #### 7 [id number], 5445209, [id number], [id number], [id number] #### [facility] (DEFAULT) [address] [place] [address] 84412 Baso Abs# 0.0 x10 Normal 0.0-0.2 [facility] Comment on above: Performed By: #### 7 708283, 3684079, 27824333, [id number], [id number] #### [facility] (DEFAULT) [address] [place] [address] 16698 Basophils/100 WBC (Bld) 0.5 % Normal 0.2-2.0 [facility] Comment on above: Performed By: #### 7 365964, 9570384, 36970530, [id number], [id number] #### [facility] (DEFAULT) [address] [place] [address] 20350 Eos Abs# 0.2 x10 Normal 0.0-0.4 [facility] Comment on above: Performed By: #### 7 926500, 5763594, 74700395, [id number], [id number] #### [facility] (DEFAULT) [address] [place] [address] 13541 Eosinophils/100 WBC (Bld) 2.3 % Normal 0.9-4.0 [facility] Comment on above: Performed By: #### 7 656516, 3980810, 00574550, [id number], [id number] #### [facility] (DEFAULT) [address] [place] [address] 95941 Lymphocytes (Bld) [#/Vol] 2.3 x10 Normal 1.3-2.9 [facility] Comment on above: Performed By: #### 7 556594, 7366362, 00187650, [id number], [id number] #### [facility] (DEFAULT) [address] [place] [address] Lymphocytes/100 WBC (Bld) 25 % Normal 14-48 [facility] Comment on above: Performed By: #### 7 800110, 2791485, 05406522, [id number], [id number] #### [facility] (DEFAULT) [address] [place] [address] [place] Abs# 0.7 x10 Normal 0.0-0.8 [facility] Comment on above: Performed By: #### 7 368825, 7350463, 12990641, [id number], [id number] #### [facility] (DEFAULT) [address] [place] [address] Neut Abs# 6.0 x10 Normal 1.5-9.2 [facility] Comment on above: Performed By: #### 7 510466, 4095763, 65625278, [id number], [id number] #### [facility] (DEFAULT) [address] [place] [address] 48728 Neutrophils/100 WBC (Bld) 65 % Normal 44-88 [facility] Comment on above: Performed By: #### 7 598308, 5983432, 53048410, [id number], [id number] #### [facility] (DEFAULT) [address] [place], [place] [id number] .QC Respiratory Panel 2.1 (B ioFire)on 06-17-2020 Internal Control-Resp Panel 2.1(BioFire) Pass Normal [facility] Comment on above: Order Comment: Order ed by Discern. [[id number]] Performed By: #### 6 [id number] #### [facility] (DEFAULT) [address] [place] [address] 03852 CBC w/ Auto Diffon 0 Erythrocyte distribution width (RBC) [Ratio] 12.9 % Normal 11.5-15.0 [facility] Comment on above: Performed By: #### 7 787163, 0108923, 46234171, [id number], [id number] #### [facility] (DEFAULT) [address] [place] [address] Hematocrit (Bld) [Volume fraction] 45.1 % Normal 34.8-51.9 [facility] Comment on above: Performed By: #### 7 639397, 9383428, 66956983, [id number], [id number] #### [facility] (DEFAULT) [address] [place] [address] Hemoglobin (Bld) [Mass/Vol] 15.6 g/dL Normal 11.8-17.7 [facility] Comment on above: Performed By: #### 7 567313, 6581503, 02214437, [id number], [id number] #### [facility] (DEFAULT) [address] [place] [address] Man Diff? Auto Normal [facility] Comment on above: Performed By: #### 7 908141, 1693901, 39329131, [id number], [id number] #### [facility] (DEFAULT) [address] [place] [address] 55864 MCH (RBC) [Entitic mass] 32 pg Normal 24-34 [facility] Comment on above: Performed By: #### 7 821351, 3448997, 83973440, [id number], [id number] #### [facility] (DEFAULT) [address] [place] [address] 64036 MCHC (RBC) [Mass/Vol] 35 g/dL Normal 26-37 [facility] Comment on above: Performed By: #### 7 189750, 7684207, 77720831, [id number], [id number] #### [facility] (DEFAULT) [address] [place] [address] 97783 MCV (RBC) [Entitic vol] 93 fL Normal 81-100 [facility] Comment on above: Performed By: #### 7 724226, 0680530, 64682839, [id number], [id number] #### [facility] (DEFAULT) [address] [place] [address] 98431 Platelet mean volume (Bld) [Entitic vol] 9.9 fL Normal 6.3-10.2 [facility] Comment on above: Performed By: #### 7 135039, 9724288, 89129599, [id number], [id number] #### [facility] (DEFAULT) [address] [place] [address] 49194 Platelets (Bld) [#/Vol] 277 x10 Normal 138-427 [facility] Comment on above: Performed By: #### 7 616998, 9329969, 44058957, [id number], [id number] #### [facility] (DEFAULT) [address] [place] [address] 63844 RBC (Bld) [#/Vol] 4.83 x10 Normal 3.70-5.30 [facility] Comment on above: Performed By: #### 7 258791, 5140649, 51095115, [id number], [id number] #### [facility] (DEFAULT) [address] [place] [address] 58525 WBC (Bld) [#/Vol] 9.3 x10 Normal 3.5-10.5 [facility] Comment on above: Performed By: #### 7 260204, 0508184, 16702145, [id number], [id number] #### [facility] (DEFAULT) [address] [place] [address] [facility] Standardon 06-17-2020 eGFR Non AA >60 [facility] Comment on above: Performed By: #### 7 737035, 9815298, 26043034, [id number], [id number] #### [facility] (DEFAULT) [address] [place] [address] 25249 eGFR AA >60 [facility] Comment on above: Result Comment: Data Processor shannan Kidney disease could be indicated at eGFRs of less than 60 ml/min/1.73m2. Kidney Failure is indicated at less than 15 ml/min/1.73m2 Performed By: #### 7 934536, 9829086, 52187450, [id number], [id number] #### [facility] (DEFAULT) [address] [place] [address] 78051 Albumin [Mass/Vol] 4.0 g/dL Normal 3.5-5.0 [facility] Comment on above: Performed By: #### 7 776057, 4972722, 04729409, [id number], [id number] #### [facility] (DEFAULT) [address] [place] [address] Albumin/Globulin [Mass ratio] 1.1 {ratio} Low 1.4-2.6 [facility] Comment on above: Performed By: #### 7 939125, 4238171, 42076505, [id number], [id number] #### [facility] (DEFAULT) [address] [place] [address] Alk Phos 70 IU/L Normal 32-91 [facility] Comment on above: Performed By: #### 7 489394, 7405121, 59468250, [id number], [id number] #### [facility] (DEFAULT) [address] [place] [address] 32597 ALT/SGPT 42.0 IU/L Normal 17.0-63.0 [facility] Comment on above: Performed By: #### 7 919179, 9732642, 15169103, 9938706706, [id number] #### [facility] (DEFAULT) [address] [place] [address] 31487 Anion gap [Moles/Vol] 13.0 mmol/L Normal 5.0-19.0 [facility] Comment on above: Performed By: #### 7 778493, 8354183, 27409538, [id number], [id number] #### [facility] (DEFAULT) [address] [place] [address] 27545 AST/SGOT 27 IU/L Normal 15-41 [facility] Comment on above: Performed By: #### 7 890437, 8280485, 13749379, [id number], [id number] #### [facility] (DEFAULT) [address] [place] [address] 48609 Bili Total 0.7 mg/dL Normal 0.3-1.2 [facility] Comment on above: Performed By: #### 7 225802, 0804885, 59652248, 4664520774, [id number] #### [facility] (DEFAULT) [address] [place] [address] 22180 Calcium [Mass/Vol] 9.0 mg/dL Normal 8.9-10.3 [facility] Comment on above: Performed By: #### 7 587441, 3783710, 64432962, [id number], [id number] #### [facility] (DEFAULT) [address] [place] [address] 25298 Chloride [Moles/Vol] 102 mmol/L Normal 101-111 [facility] Comment on above: Performed By: #### 7 522457, 0524707, 96573086, [id number], [id number] #### [facility] (DEFAULT) [address] [place] [address] 82603 CO2 [Moles/Vol] 25 mmol/L Normal 21-32 [facility] Comment on above: Performed By: #### 7 357461, 4727269, 61625048, [id number], [id number] #### [facility] (DEFAULT) [address] [place] [address] 85169 Creatinine [Mass/Vol] 0.97 mg/dL Normal 0.90-1.30 [facility] Comment on above: Performed By: #### 7 669749, 4098624, 65155929, [id number], [id number] #### [facility] (DEFAULT) [address] [place] [address] 73523 Globulin (S) [Mass/Vol] 3.5 g/dL Normal 1.5-4.3 [facility] Comment on above: Performed By: #### 7 464997, 6922574, 56489209, [id number], [id number] #### [facility] (DEFAULT) [address] [place] [address] 05977 Glucose [Mass/Vol] 123.0 mg/dL High 74.0-118.[address] [facility] Comment on above: Performed By: #### 7 187193, 3874674, 32838124, [id number], [id number] #### [facility] (DEFAULT) [address] [place] [address] 05509 Osmolality [Osmolality] 276 mOsm/L [facility] Comment on above: Performed By: #### 7 638308, 1107608, 14296647, [id number], [id number] #### [facility] (DEFAULT) [address] [place] [address] 25665 Potassium [Moles/Vol] 3.6 mmol/L Normal 3.6-5.1 [facility] Comment on above: Performed By: #### 7 499766, 6933366, 54234509, [id number], [id number] #### [facility] (DEFAULT) [address] [place] [address] 16080 Protein [Mass/Vol] 7.5 g/dL Normal 6.5-8.1 [facility] Comment on above: Performed By: #### 7 348963, 2445151, 66218770, [id number], [id number] #### [facility] (DEFAULT) [address] [place] [address] 16708 Sodium [Moles/Vol] 136.0 mmol/L Normal 136.0-144.0 [facility] Comment on above: Performed By: #### 7 185813, 7949533, 45869797, [id number], [id number] #### [facility] (DEFAULT) [address] [place] [address] 58322 Urea nitrogen [Mass/Vol] 19 mg/dL Normal 8-26 [facility] Comment on above: Performed By: #### 7 649406, 3809145, 28649363, [id number], [id number] #### [facility] (DEFAULT) [address] [place] [address] 57513 Urea nitrogen/Creatinine [Mass ratio] 20.0 mg/mg High 4.6-16.2 [facility] Comment on above: Performed By: #### 7 532995, 8584481, 30560190, [id number], [id number] #### [facility] (DEFAULT) [address] [place] [address] 39412 D-Dimeron 06-17-2020 D-Dimer 0.23 mg/L FEU Normal 0.19-0.50 [facility] Comment on above: Result Comment: The INNOVANCE [...] Liver cirrhosis ? Performed By: #### 7 325492, 2848125, 07407405, [id number], [id number] #### [facility] (DEFAULT) [address] [place] [address] 79159 ED Clinical Summaryon 2019 ED Clinical Summary [facility] - Emergency Department [address] [place] [address] 19881 ED Clinical Summary PERSON INFORMATION Name: GEREMIAS MELCHOR Age: 54 Years Sex: MALE : 1965 MRN: Acct#: Visit Reason: Shortness of breath; SOB Arrival: 06/17/2020 15:26:17 Discharge: 06/17/2020 17:58:00 LOS: 000 02:32 Check In: 06/17/2020 15:26:17 Checkout:06/17/2020 17:58:00 Address: [address] [place] [address] PCP: Ericka Muniz MD PROVIDER INFORMATION Provider Role Assigned Unassigned Luis A JIMENEZ, Leonela Sorenson ED Nurse 06/17/2020 15:32:57 Otilia [...] Adult Follow-Up: With: Address: When: Ericka Muniz [address] [place], [place] [address] Business (1) Within 3 to 5 days DIAGNOSIS: Viral URI with cough Patient Understands: Yes - Patient/family/caregi rosanne verbalizes understanding of instructions given Comment: [facility] ED Note - Physicianon 2019 ED Note - Physician Patient: BERNADETTE MELCHOR Age: 54 years Sex: MALE : 1965 [...] % Auto Lymph % 25 % Auto [place] % 7 % Auto Eos % 2.3 % Auto Baso % 0.5 % Neut Abs# 6.0 x103/mcL Lymph Abs# 2.3 x103/mcL [place] Abs# 0.7 x103/mcL Eos Abs# 0.2 x103/mcL [...] Detected Human Metapneumovirus -BioFire Not Detected Human Rhinovirus/Enteroviru s -BioFire Not Detected Influenza A (no subtype) [...] and Plan Diagnosis Viral URI with cough (HVX16-DH J06.9, Discharge, Medical) Plan Condition: Stable. Disposition: [...] Francois [Verified on: 06/17/2020 18:26 EST] Otilia Francois [facility] ED Note-Nursingon 06-17-2020 ED Note-Nursing Patient arrives to the ED via private vehicle. Ambulated with a [...] feels more short of breath than normal. [facility] ED Patient Education Noteon 06-17-2020 ED Patient Education Note Education Materials Upper Respiratory Infection, Adult An upper respiratory [...] to help relieve symptoms, such as: ? Cnpg-lqh-demoofq cold medicines. ? Cough suppressants. Coughing is [...] other clear broths. General instructions ? Take jsaj-fki-ittvpyc and prescription medicines only as told by [...] and water are not available, use hand airborne operations manager. ? Avoid touching your mouth, face, eyes, [...] 12/21/2001 Document Revised: 07/05/2019 Document Reviewed: 02/10/2018 [employer] Patient Education ? 2019 [employer]. ENT Cough, Adult Coughing is a reflex [...] these instructions at home: Medicines ? Take acka-mnb-ueeimtl and prescription medicines only as told by [...] a condition that needs treatment. ? Take cnzb-fsl-eybuxve and prescription medicines only as told by [...] 12/24/2011 Document Revised: 07/16/2019 Document Reviewed: 07/16/2019 [employer] Patient Education ? 2019 [employer] [facility] ED Patient Summaryon 020 ED Patient Summary [facility] - Emergency Department [address] [place] [id number] PATIENT DISCHARGE INSTRUCTIONS Patient Information Name: GEREMIAS MELCHOR Age: 54 Years Date of : 1965 Reason For Visit: Shortness of breath; SOB Arrival Time: 06/17/2020 15:26:17 Primary Care Physician: Ericka Muniz MD Attending Physician: Landon Vegas MD Comment: Visit Diagnosis: Diagnoses This Visit Shortness of breath ([id number]) Viral URI with cough (J06.9) Prescription Information: If you have been given a prescription for narcotics, seek immediate medical attention if you have any difficulty breathing or any sudden status changes such as confusion and sleepiness. If you or anyone you know is experiencing suicidal thoughts, mental health, alcohol and/or drug addiction problems; contact the [facility] 31/01 Crisis Hotline -Text 4HMCM do [id number]. If you received any narcotics, sedation, or [...] legal documents With: Address: When: Ericka Muniz [address] [place] [id number] Business (1) Within 3 to 5 days Medication Information: The exam and treatment you received today in the [facility] Emergency Department were for an urgent problem and are not intended as complete care. It is important for you to follow up with a doctor, nurse practitioner, or physician?s personal banking assistant for ongoing care. If your symptoms [...] so we can reach you if necessary. [facility] Emergency Department has provided you with a complete list of medications post discharge. Please inform your chain puller/provider of your visit and for further instruction [...] to help relieve symptoms, such as: ? Wkfb-zkb-sywksby cold medicines. ? Cough suppressants. Coughing is [...] other clear broths. General instructions ? Take npkl-ftt-sdzpbzc and prescription medicines only as told by [...] and water are not available, use hand airborne operations manager. ? Avoid touching your mouth, face, eyes, [...] 12/21/2001 Document Revised: 07/05/2019 Document Reviewed: 02/10/2018 [employer] Patient Education ? 2019 [employer] Cough, Adult Coughing is a reflex [...] these instructions at home: Medicines ? Take ygeb-sjk-kbqkhqx and prescription medicines only as told by [...] a condition that needs treatment. ? Take bkki-fna-romvrha and prescription medicines only as told by [...] 12/24/2011 Document Revised: 07/16/2019 Document Reviewed: 07/16/2019 [employer] Patient Education ? 2019 [employer] Viruses or Bacteria What?s got you [...] Disease Control and Prevention March 2014 Normal [facility] Extra Redon 06-17-2020 Tube Collected Yes [facility] Comment on above: Performed By: #### [id number], [id number] #### [facility] (DEFAULT) [address] [place] [id number] TnI HSon 06-17-2020 Troponin I High Sensitivity 4 pg/mL Normal <=20 [facility] Comment on above: Result Comment: Male Baseline Delta 1Hr (Note pg/mL=ng/L) <20pg/mL 50-60% >20pg/mL 20% Female Baseline Delta 1Hr <15pg/mL 50-60% >15pg/mL 20% Other Baseline Delta 1Hr <18ng/mL 50-60% >18ng/mL 20% ([place] [employer] Guidelines February 2018) Performed By: #### 7 [id number] #### [facility] (DEFAULT) [address] [place] [id number] Metabolic Panelon 04-08-2020 ALT [Catalytic activity/Vol] 50.0 U/L Invalid Interpretation Code [facility] Bilirubin [Mass/Vol] 0.3 mg/dL 0.0-1.0 [facility] HbA1c (Bld) [Mass fraction] 6.6 % 4.3-6.3 [facility] Albumin [Mass/Vol] 4.50 g/dL Invalid Interpretation Code [facility] AST [Catalytic activity/Vol] 31.0 U/L Invalid Interpretation Code [facility] HbA1c (Bld) [Mass fraction] 6.60 % Invalid Interpretation Code [facility] No Panel Informationon 04-08 6.6 Invalid Interpretation Code 4.3-6.3 [facility] 0.3 Invalid Interpretation Code 0.0-1.0 [facility] Negative Invalid Interpretation Code Negative [facility] Otheron 04-08-2020 Negative Negative [facility] 4+ Invalid Interpretation Code Negative [facility] Clear Invalid Interpretation Code Clear [facility] normal Invalid Interpretation Code normal [facility] yellow Invalid Interpretation Code yellow [facility] 50 0-50 [facility] 6 Invalid Interpretation Code 5.0-9.0 [facility] 31 Invalid Interpretation Code 0-40 [facility] 78 Invalid Interpretation Code 31-155 [facility] 1.010 Invalid Interpretation Code 1.003-1.030 [facility] 1.5 Invalid Interpretation Code 1.0-2.4 [facility] 4.5 Invalid Interpretation Code 3.7-4.5 [facility] 7.5 Invalid Interpretation Code 6.3-7.9 [facility] 143 Invalid Interpretation Code [facility] 115.0 mg/dL Invalid Interpretation Code <140 [facility] ls Invalid Interpretation Code [facility] MRI KNEE RIGHT WO CONTRASTon 03-25-2020 MRI [...] tear identified. There is inner free edge degeneration/truncati on of the medial meniscus without acute meniscal [...] Jos Martins MD 03/25/20 Final result Normal [facility] Inner free edge degeneration of the medial [...] suggestive of sprains. No definite tear identified. [facility], [place] EXAMINATION: MRI OF THE RIGHT KNEE WITHOUT CONTRAST, 03/25/2020 2:39 pm TECHNIQUE: Multiplanar multisequence MRI of the right knee was performed without the administration of intravenous contrast. COMPARISON: None. HISTORY: ORDERING SYSTEM PROVIDED HISTORY: Right knee pain, unspecified chronicity FINDINGS: MENISCI: Lateral meniscus is normal in bulk, contour, and signal intensity, without discrete tear identified. There is inner free edge degeneration/truncati on of the medial meniscus without acute meniscal [...] are most compatible with a microtrabecular infraction. [facility] [place], [place] Ezekiel, [facility] Incoming Radiant Results From [employer] - 03/25/2020 3:02 PM EDT EXAMINATION: MRI [...] tear identified. There is inner free edge degeneration/truncati on of the medial meniscus without acute meniscal [...] suggestive of sprains. No definite tear identified. [place] [facility] 02-12-2020 MRI SHOULDER RIGHT WO CONTRAST EXAMINATION: MRI OF THE RIGHT SHOULDER WITHOUT CONTRAST 02/12/2020 2:25 pm TECHNIQUE: Multiplanar multisequence MRI of the right shoulder was performed without the administration of intravenous contrast. COMPARISON: None. HISTORY: ORDERING SYSTEM PROVIDED HISTORY: Acute pain of right shoulder 54-year-old male with acute right shoulder pain FINDINGS: ROTATOR CUFF: Evidence of prior rotator cuff repair. Subacromial-subdeltoi d bursa is contiguous with the glenohumeral joint. Region of full-thickness tearing in the critical zone along mid and posterior supraspinatus. The tear gap measures 1.5 cm on image 6, series 6 and approximately 7 mm in greatest AP dimension. Aowwmndc-ot-cfpals underlying supraspinatus tendinopathy and granulation tissue. Zeka-qj-lxpcyswy underlying infraspinatus tendinopathy. Mild subscapularis tendinopathy. Teres [...] 6. No paralabral cyst formation. GLENOHUMERAL JOINT: Wdzq-ap-sdduxapm glenohumeral chondromalacia. Small amount of fluid in [...] dimension with tear gap measuring 1.5 cm. Ukrekmbt-ov-yfxdfy underlying supraspinatus tendinopathy and granulation tissue. Zawr-us-ajepnqlq underlying infraspinatus tendinopathy. 2. Mild subscapularis tendinopathy. 3. Mild atrophy and fatty degeneration of subscapularis. 4. Mild diffuse labral degeneration. Degenerative tearing along the superior labrum. 5. Uqoa-cj-wdiminpm glenohumeral chondromalacia. 6. Mild degenerative change of the right AC joint. 7. Prior biceps tenodesis. 8. Susceptibility artifact and marrow edema surrounding a stress riser at the anterior humeral head. Interpreted by: Rodrigo Purcell MD Signed by: Rodrigo Purcell MD 02/12/20 Final result Normal [facility] 1. Prior rotator cuf f repair. Region of full-thickness tearing of the critical zone along mid and posterior supraspinatus measuring 7 mm in greatest AP dimension with tear gap measuring 1.5 cm. Gwgnpokg-df-sjhtag underlying supraspinatus tendinopathy and granulation tissue. Fohw-gt-zchhpfyu underlying infraspinatus tendinopathy. 2. Mild subscapularis tendinopathy. 3. Mild atrophy and fatty degeneration of subscapularis. 4. Mild diffuse labral degeneration. Degenerative tearing along the superior labrum. 5. Oeap-eh-eyqhigih glenohumeral chondromalacia. 6. Mild degenerative change of the right AC joint. 7. Prior biceps tenodesis. 8. Susceptibility artifact and marrow edema surrounding a stress riser at the anterior humeral head. [facility], [place] EXAMINATION: MRI OF THE RIGHT SHOULDER WITHOUT CONTRAST 02/12/2020 2:25 pm TECHNIQUE: Multiplanar multisequence MRI of the right shoulder was performed without the administration of intravenous contrast. COMPARISON: None. HISTORY: ORDERING SYSTEM PROVIDED HISTORY: Acute pain of right shoulder 54-year-old male with acute right shoulder pain FINDINGS: ROTATOR CUFF: Evidence of prior rotator cuff repair. Subacromial-subdeltoi d bursa is contiguous with the glenohumeral joint. Region of full-thickness tearing in the critical zone along mid and posterior supraspinatus. The tear gap measures 1.5 cm on image 6, series 6 and approximately 7 mm in greatest AP dimension. Rssbbtuv-tq-gtntro underlying supraspinatus tendinopathy and granulation tissue. Fywm-de-fsrlejow underlying infraspinatus tendinopathy. Mild subscapularis tendinopathy. Teres [...] 6. No paralabral cyst formation. GLENOHUMERAL JOINT: Qacg-yz-xchcmxzg glenohumeral chondromalacia. Small amount of fluid in [...] unremarkable in appearance. No right axillary lymphadenopathy. [facility] [place] Ezekiel, [facility] Incoming Radiant Results From [employer] - 02/12/2020 3:46 PM EDT EXAMINATION: MRI OF THE RIGHT SHOULDER WITHOUT CONTRAST 02/12/2020 2:25 pm TECHNIQUE: Multiplanar multisequence MRI of the right shoulder was performed without the administration of intravenous contrast. COMPARISON: None. HISTORY: ORDERING SYSTEM PROVIDED HISTORY: Acute pain of right shoulder 54-year-old male with acute right shoulder pain FINDINGS: ROTATOR CUFF: Evidence of prior rotator cuff repair. Subacromial-subdeltoi d bursa is contiguous with the glenohumeral joint. Region of full-thickness tearing in the critical zone along mid and posterior supraspinatus. The tear gap measures 1.5 cm on image 6, series 6 and approximately 7 mm in greatest AP dimension. Lbyorkvt-ih-wgnrhw underlying supraspinatus tendinopathy and granulation tissue. Wwgu-cf-ddaakfes underlying infraspinatus tendinopathy. Mild subscapularis tendinopathy. Teres [...] 6. No paralabral cyst formation. GLENOHUMERAL JOINT: Vcbx-yh-ddcifhlt glenohumeral chondromalacia. Small amount of fluid in [...] dimension with tear gap measuring 1.5 cm. Edwljhpp-zo-thypxc underlying supraspinatus tendinopathy and granulation tissue. Uahw-ku-uopudufj underlying infraspinatus tendinopathy. 2. Mild subscapularis tendinopathy. 3. Mild atrophy and fatty degeneration of subscapularis. 4. Mild diffuse labral degeneration. Degenerative tearing along the superior labrum. 5. Whne-ru-zzryhsrk glenohumeral chondromalacia. 6. Mild degenerative change of the right AC joint. 7. Prior biceps tenodesis. 8. Susceptibility artifact and marrow edema surrounding a stress riser at the anterior humeral head. [place], [place] Glucose, Whole Bloodon 12-27 Glucose [Mass/Vol] 113 mg/dL High 74 - 100 mg/dL [place] Interpretation and review of laboratory results Abnormal [place] BUNon 12-26-2019 Urea nitrogen [Mass/Vol] 16 mg/dL 6 - 20 mg/dL [place] BUN (Urea N)on 12-26-2019 Urea nitrogen [Mass/Vol] 16 mg/dL Normal -20 [facility] Comment on above: Performed By: #### H CT, BUN, CREG, GLU, LYTE #### [facility] [address] [place] [address] [employer] Operator: Domingo Rayo MD Creatinine w/GFRon 0 (cont.) Normal [facility] Comment on above: Result Comment: Aver age GFR for 50-59 years old: 93 mL/min/1.73sq m Chronic Kidney Disease: <60 mL/min/1.73sq m Kidney failure: <15 mL/min/1.73sq m eGFR calculated using average adult body mass. Additional eGFR calculator available at: http://www.[employer]/multiple_crcl_2012.htm Performed By: #### H CT, BUN, CREG, GLU, LYTE #### [facility] [address] [place] [address] [employer] Operator: Domingo Rayo MD Creatinine [Mass/Vol] 1.15 mg/dL Normal 0.70-1.20 [facility] Comment on above: Performed By: #### H CT, BUN, CREG, GLU, LYTE #### [facility] [address] [place] [address] [employer] Operator: Domingo Rayo MD GFR, Amer >60 Normal >60 [facility] Comment on above: Performed By: #### H CT, BUN, CREG, GLU, LYTE #### [facility] [address] [place] [address] [employer] Operator: Domingo Rayo MD GFR,non Amer >60 Normal >60 [facility] Comment on above: Performed By: #### H CT, BUN, CREG, GLU, LYTE #### [facility] [address] [place] [address] [employer] Operator: Domingo Rayo MD Staging: Normal [facility] Comment on above: Result Comment: Stag e 1: Some kidney damage normal GFR Stage 2: Mild kidney damage GFR 60-89 Stage 3: Moderate kidney damage GFR 30-59 Stage 4: Severe kidney damage GFR 15-29 Stage 5: Severe kidney damage GFR <15 ESRD - chronic treatment by dialysis or transplant Performed By: #### H CT, BUN, CREG, GLU, LYTE #### [facility] [address] [place] [address] [employer] Operator: Domingo Rayo MD Creatinine, Serumon 12-26-19 Creatinine [Mass/Vol] 1.15 mg/dL 0.7 - 1.2 mg/dL [place] GFR >60 >60 mL/min [place] GFR Non- >60 >60 mL/min [place] Electrolyte Panelon 12-26-19 Anion gap [Moles/Vol] 17 mmol/L 9 - 17 mmol/L [place] Chloride [Moles/Vol] 95 mmol/L Low 98 - 107 mmol/L [place] CO2 [Moles/Vol] 24 mmol/L 20 - 31 mmol/L [place] Potassium [Moles/Vol] 3.7 mmol/L 3.7 - 5.3 mmol/L [place] Sodium [Moles/Vol] 136 mmol/L 135 - 144 mmol/L [place] Electrolyteson 12-26-2019 Anion gap [Moles/Vol] 17 mmol/L Normal - [facility] Comment on above: Performed By: #### H CT, BUN, CREG, GLU, LYTE #### [facility] [address] [place] [address] [employer] Operator: Domingo Rayo MD Chloride [Moles/Vol] 95 mmol/L Low 98-107 [facility] Comment on above: Performed By: #### H CT, BUN, CREG, GLU, LYTE #### [facility] [address] [place] [address] [employer] Operator: Domingo Rayo MD CO2 [Moles/Vol] 24 mmol/L Normal 20-31 [facility] Comment on above: Performed By: #### H CT, BUN, CREG, GLU, LYTE #### [facility] [address] [place] [address] [employer] Operator: Domingo Rayo MD Potassium [Moles/Vol] 3.7 mmol/L Normal 3.7-5.3 [facility] Comment on above: Performed By: #### H CT, BUN, CREG, GLU, LYTE #### [address] [place] [address] [employer] Operator: Domingo Rayo MD Sodium [Moles/Vol] 136 mmol/L Normal 135-144 [facility] Comment on above: Performed By: #### H CT, BUN, CREG, GLU, LYTE #### [facility] [address] [place] [address] [employer] Operator: Domingo Rayo MD Glucoseon 12-26-2019 Glucose [Mass/Vol] 107 mg/dL High 70-99 [facility] Comment on above: Performed By: #### H CT, BUN, CREG, GLU, LYTE #### [address] [place] [address] [employer] Operator: Domingo Rayo MD Glucose, randomon 12-26-2019 Glucose [Mass/Vol] 107 mg/dL High 70 - 99 mg/dL [place], [place] Hematocriton 12-26-2019 Hematocrit (Bld) [Volume fraction] 47.4 % Normal 40.7-50.3 [facility] Comment on above: Performed By: #### H CT, BUN, CREG, GLU, LYTE #### [facility] [address] [place] [address] [employer] Operator: Domingo Rayo MD Hematocrit (Bld) [Volume fraction] 47.4 % 40.7 - 50.3 % [place] Metabolic Panelon 12-26-2019 GFR/1.73 sq M predicted among non-blacks MDRD (S/P/Bld) [Vol rate/Area] [place] Comment on above: Average GFR for 50-5 9 years old: 93 mL/min/1.73sq m Chronic Kidney Disease: <60 mL/min/1.73sq m Kidney failure: <15 mL/min/1.73sq m eGFR calculated using average adult body mass. Additional eGFR calculator available at: http://www.[employer]/multiple_crcl_2012.htm Stage 1: Some kidney damage normal GFR Stage 2: Mild kidney damage GFR 60-89 Stage 3: Moderate kidney damage GFR 30-59 Stage 4: Severe kidney damage GFR 15-29 Stage 5: Severe kidney damage GFR <15 ESRD - chronic treatment by dialysis or transplant Otheron 12-26-2019 Interpretation and review of laboratory results Abnormal [place] COVID-19on 12-25-2019 SARS-CoV-2 Not Detected Not Detected [place], [place] Comment on above: The specimen is NEGATIVE for SARS-CoV-2, the novel coronavirus associated with COVID-19. A negative result does not rule out COVID-19. This test has been authorized by the FDA under an Emergency Use Authorization (EUA) for use by authorized laboratories. Fact sheet for Healthcare Providers: https://www.fda.gov/media/642338/download Fact sheet for Patients: https://www.fda.gov/media/142347/download METHODOLOGY: RT-PCR SARS-CoV-2, PCR [facility], [place] SARS-CoV-2, Rapid [facility], [place] Source .NASOPHARYNGEAL SWAB [facility], [place] [id number] 12-25-2019 SARS-CoV-2,Rapid Normal [facility] Comment on above: Performed By: #### C OVID #### [facility] [address] [place] [address] [employer] Operator: Sam Jacobs MD [facility] [address] [place] [address] [address], [place] [address] [employer] Operator: Domingo Rayo MD SARS-CoV-2 [facility] Comment on above: Performed By: #### C OVID #### [facility] [address] [place] [address] [employer] Operator: Sam Jacobs MD [facility] [address] [place] [address] [address] [place], [place] [address] [employer] Operator: Domingo Rayo MD SARS-CoV-[address] [facility] Comment on above: Result Comment: The specimen is NEGATIVE for SARS-CoV-2, the novel coronavirus associated with COVID-19. A negative result does not rule out COVID-19. This test has been authorized by the FDA under an Emergency Use Authorization (EUA) for use by authorized laboratories. Fact sheet for Healthcare Providers: https://www.fda.gov/media/518654/download Fact sheet for Patients: https://www.fda.gov/media/314676/download METHODOLOGY: RT-PCR Performed By: #### C OVID #### [facility] [address] [place] [address] [employer] Operator: Sam Jacobs MD [facility] [address] [place] [address] [address] [place], [place] [address] [employer] Operator: Domingo Rayo MD EKG 12 Leadon 12-24-2019 Atrial Rate 92 BPM [facility], [place] P [place] 52 degrees [facility], [place] P-R Interval 154 ms [facility], [place] Q-T Interval 360 ms [place], [place] QRS Duration 96 ms [place], [place] QTc Calculation (Bazett) 445 ms [place], [place] R [place] 34 degrees [place], [place] T [place] 46 degrees [facility], [place] Ventricular Rate 92 BPM [place], [place] Normal sinus rhythm Normal ECG No previous ECGs available Confirmed by Federico Burks MD ([id number]) on 12/24/2019 4:59:35 PM [place] Ezekiel, [facility] Incoming Ekg Results From [facility] - 12/24/2019 4:59 PM EDT Normal sinus rhythm Normal ECG No previous ECGs available Confirmed by Federico Burks MD ([id number]) on 12/24/2019 4:59:35 PM [place] [id number] 12-24-2019 SARS-CoV-2 Source .NASOPHARYNGEAL SWAB Normal [facility] Comment on above: Performed By: #### C OVID #### [facility] [address] [place] [address] [employer] Operator: Sam Jacobs MD [facility] [address] [place] [address] [employer] Operator: Domingo Rayo MD Laboratory - Chemistry and C hemistry - challengeon 12-20-2019 Bilirubin Ql (U) Negative Invalid Interpretation Code Negative [facility] Urobilinogen (U) [Mass/Vol] normal Invalid Interpretation Code normal [facility] Laboratory - Hematology and Cell countson 12-20-2019 Hemoglobin Ql (U) Negative Invalid Interpretation Code Negative [facility] Laboratory - Urinalysison Leukocyte esterase Test strip Ql (U) Negative Invalid Interpretation Code Negative [facility] Nitrite Ql (U) Negative Invalid Interpretation Code Negative [facility] Protein Ql (U) Negative Invalid Interpretation Code Negative [facility] Metabolic Panelon 12-20-2019 Anion gap [Moles/Vol] 20 mmol/L Invalid Interpretation Code 10-20 [place] Calcium [Mass/Vol] 9.10 mg/dL Invalid Interpretation Code 8.5-10.8 [place] [facility] Chloride [Moles/Vol] 97.0 mmol/L Invalid Interpretation Code 100-112 [facility] [facility] CO2 [Moles/Vol] 23.0 mmol/L Invalid Interpretation Code 23-30 [facility] Creatinine [Mass/Vol] 1.0 mg/dL Invalid Interpretation Code 0.5-1.5 [place] [facility] GFR/1.73 sq M predicted among non-blacks MDRD (S/P/Bld) [Vol rate/Area] 78 mL/min/{1.73_m2} Invalid Interpretation Code [place] [facility] Glucose [Mass/Vol] 90.0 mg/dL Invalid Interpretation Code 80-117 [place] [facility] HbA1c (Bld) [Mass fraction] 6.80 % Invalid Interpretation Code 4.3-6.3 [place] [facility] Potassium [Moles/Vol] 4.10 mmol/L Invalid Interpretation Code 3.5-5.3 [place] [facility] Sodium [Moles/Vol] 136.0 mmol/L Invalid Interpretation Code 135-148 [place] [facility] Urea nitrogen [Mass/Vol] 16.0 mg/dL Invalid Interpretation Code 7-25 [place] [facility] Urea nitrogen/Creatinine [Mass ratio] 16 mg/mg Invalid Interpretation Code 6-20 [place] [facility] Otheron 12-20-2019 Bilirubin Ql (U) Negative Negative [facility] Glucose Test strip (U) [Mass/Vol] 4+ Invalid Interpretation Code Negative [facility] [employer] [facility] Hemoglobin Ql (U) Negative Negative [facility] [employer] [facility] Nitrite Ql (U) Negative Negative [facility] pH (U) 5 [pH] Invalid Interpretation Code 5.0-9.0 [place] [facility] Protein Ql (U) Negative Negative [facility] [employer] [facility] Urobilinogen Test strip (U) [Mass/Vol] normal normal [place] [employer] [facility] 148 [place] [facility] 148.0 mg/dL Invalid Interpretation Code [facility] [employer] [facility] Urinalysison 12-20-2019 Clarity (U) clear Invalid Interpretation Code Clear [facility] [employer] [facility] Color (U) yellow Invalid Interpretation Code yellow [facility] [employer] [facility] Ketones Ql (U) 1+ Invalid Interpretation Code Negative [facility] [employer] [facility] Leukocyte esterase Test strip Ql (U) Negative Negative [facility] [employer] [facility] Specific gravity (U) [Rel density] 1.010 Invalid Interpretation Code 1.003-1.030 [place] [facility] 11-19-2019 Cholesterol [Mass/Vol] 153.0 mg/dL Invalid Interpretation Code 0-200 [place] [facility] Cholesterol in HDL [Mass/Vol] 56.0 mg/dL Invalid Interpretation Code 36-100 [place] [facility] Cholesterol in LDL [Mass/Vol] 80.0 mg/dL Invalid Interpretation Code 0-130 [place] [facility] Triglyceride [Mass/Vol] 84.0 mg/dL Invalid Interpretation Code 30-150 [facility] Metabolic Panelon 11-19-2019 Albumin [Mass/Vol] 4.60 g/dL Invalid Interpretation Code 3.7-4.5 [facility] ALP [Catalytic activity/Vol] 75.0 U/L Invalid Interpretation Code 31-155 [facility] ALT [Catalytic activity/Vol] 54.0 U/L Invalid Interpretation Code 0-50 [facility] Anion gap [Moles/Vol] 18 mmol/L Invalid Interpretation Code 10-20 [facility] AST [Catalytic activity/Vol] 37.0 U/L Invalid Interpretation Code 0-40 [facility] Bilirubin [Mass/Vol] 0.50 mg/dL Invalid Interpretation Code 0.0-1.0 [facility] Calcium [Mass/Vol] 9.40 mg/dL Invalid Interpretation Code 8.5-10.8 [facility] Chloride [Moles/Vol] 99.0 mmol/L Invalid Interpretation Code 100-112 [facility] CO2 [Moles/Vol] 27.0 mmol/L Invalid Interpretation Code 23-30 [facility] Creatinine [Mass/Vol] 1.0 mg/dL Invalid Interpretation Code 0.5-1.5 [facility] GFR/1.73 sq M predicted among non-blacks MDRD (S/P/Bld) [Vol rate/Area] 78 mL/min/{1.73_m2} Invalid Interpretation Code [facility] Glucose [Mass/Vol] 120.0 mg/dL Invalid Interpretation Code 80-117 [facility] HbA1c (Bld) [Mass fraction] 6.80 % Invalid Interpretation Code 4.3-6.3 [facility] Potassium [Moles/Vol] 4.0 mmol/L Invalid Interpretation Code 3.5-5.3 [facility] Protein [Mass/Vol] 7.80 g/dL Invalid Interpretation Code 6.3-7.9 [facility] Sodium [Moles/Vol] 140.0 mmol/L Invalid Interpretation Code 135-148 [facility] Urea nitrogen [Mass/Vol] 13.0 mg/dL Invalid Interpretation Code 7-25 [facility] Urea nitrogen/Creatinine [Mass ratio] 13 mg/mg Invalid Interpretation Code 6-20 [facility] Otheron 11-19-2019 Albumin (U) [Mass/Vol] 22.3 Invalid Interpretation Code <17.0 [facility] Albumin/Globulin [Mass ratio] 1.4 {ratio} Invalid Interpretation Code 1.0-2.4 [facility] Cholesterol in VLDL [Mass/Vol] 17.0 mg/dL Invalid Interpretation Code 0-39 [facility] Cholesterol.total/C holesterol in HDL [Mass ratio] 3 {ratio} Invalid Interpretation Code [facility] 148 [facility] 148.0 mg/dL Invalid Interpretation Code [facility] 54.0 U/L 0-50 [facility] Urinalysison 11-19-2019 Albumin/Creatinine DL <= 20 mg/L (U) [Mass ratio] 29.8 mg/g Invalid Interpretation Code 0.0-30.0 [facility] Creatinine (U) [Mass/Vol] 74.90 mg/dL Invalid Interpretation Code Not Estab. mg/dL [facility] Metabolic Panelon 08-28-2019 Anion gap [Moles/Vol] 16 mmol/L Invalid Interpretation Code 10-20 [facility] Calcium [Mass/Vol] 9.70 mg/dL Invalid Interpretation Code 8.5-10.8 [facility] Chloride [Moles/Vol] 100.0 mmol/L Invalid Interpretation Code 100-112 [facility] CO2 [Moles/Vol] 27.0 mmol/L Invalid Interpretation Code 23-30 [facility] Creatinine [Mass/Vol] 1.10 mg/dL Invalid Interpretation Code 0.5-1.5 [facility] GFR/1.73 sq M predicted among non-blacks MDRD (S/P/Bld) [Vol rate/Area] 70 mL/min/{1.73_m2} Invalid Interpretation Code [facility] Glucose [Mass/Vol] 137.0 mg/dL Invalid Interpretation Code 80-117 [facility] Potassium [Moles/Vol] 4.0 mmol/L Invalid Interpretation Code 3.5-5.3 [facility] Sodium [Moles/Vol] 139.0 mmol/L Invalid Interpretation Code 135-148 [facility] Urea nitrogen [Mass/Vol] 26.0 mg/dL Invalid Interpretation Code 7-25 [facility] Urea nitrogen/Creatinine [Mass ratio] 24 mg/mg Invalid Interpretation Code 6-20 [facility] Laboratory - Chemistry and C hemistry - challengeon 08-21-2019 Bilirubin Ql (U) Negative Invalid Interpretation Code Negative [facility] Ketones Ql (U) Negative Invalid Interpretation Code Negative [facility] Urobilinogen (U) [Mass/Vol] normal Invalid Interpretation Code normal [facility] Laboratory - Urinalysison Nitrite Ql (U) Negative Invalid Interpretation Code Negative [facility] Metabolic Panelon 08-21-2019 Anion gap [Moles/Vol] 18 mmol/L Invalid Interpretation Code 10-20 [facility] Calcium [Mass/Vol] 9.70 mg/dL Invalid Interpretation Code 8.5-10.8 [facility] Chloride [Moles/Vol] 97.0 mmol/L Invalid Interpretation Code 100-112 [facility] CO2 [Moles/Vol] 25.0 mmol/L Invalid Interpretation Code 23-30 [facility] Creatinine [Mass/Vol] 2.30 mg/dL Invalid Interpretation Code 0.5-1.5 [facility] GFR/1.73 sq M predicted among non-blacks MDRD (S/P/Bld) [Vol rate/Area] 30 mL/min/{1.73_m2} Invalid Interpretation Code [facility] Glucose [Mass/Vol] 231.0 mg/dL Invalid Interpretation Code 80-117 [facility] HbA1c (Bld) [Mass fraction] 7.60 % Invalid Interpretation Code 4.3-6.3 [facility] Potassium [Moles/Vol] 4.50 mmol/L Invalid Interpretation Code 3.5-5.3 [facility] Sodium [Moles/Vol] 135.0 mmol/L Invalid Interpretation Code 135-148 [place] [facility] Urea nitrogen [Mass/Vol] 34.0 mg/dL Invalid Interpretation Code 7-25 [place] [facility] Urea nitrogen/Creatinine [Mass ratio] 15 mg/mg Invalid Interpretation Code 6-20 [place] [facility] Otheron 08-21-2019 Bilirubin Ql (U) Negative [facility] Gamma glutamyl transferase [Catalytic activity/Vol] 72 U/L Invalid Interpretation Code 7-51 [place] [facility] Glucose Test strip (U) [Mass/Vol] 4+ Invalid Interpretation Code Negative [place] [facility] Hemoglobin Ql (U) Trace Invalid Interpretation Code Negative [place] [facility] Nitrite Ql (U) Negative Negative [place] [facility] pH (U) 5 [pH] Invalid Interpretation Code 5.0-9.0 [place] [facility] Protein Ql (U) 1+ Invalid Interpretation Code Negative [place] [facility] Urobilinogen Test strip (U) [Mass/Vol] normal normal [place] [facility] 171 [place] [facility] 171.0 mg/dL Invalid Interpretation Code [facility] Urinalysison 08-21-2019 Clarity (U) Clear Invalid Interpretation Code Clear [place] [facility] Color (U) yellow Invalid Interpretation Code yellow [place] [facility] Ketones Ql (U) Negative Negative [place] [facility] Leukocyte esterase Test strip Ql (U) Trace Invalid Interpretation Code Negative [facility] Specific gravity (U) [Rel density] 1.015 Invalid Interpretation Code 1.003-1.030 [facility] 05-22-2019 Cholesterol [Mass/Vol] 164.0 mg/dL Invalid Interpretation Code 0-200 [facility] Cholesterol in HDL [Mass/Vol] 33.0 mg/dL Invalid Interpretation Code 36-100 [facility] Cholesterol in LDL [Mass/Vol] 89.0 mg/dL Invalid Interpretation Code 0-130 [facility] Triglyceride [Mass/Vol] 208.0 mg/dL Invalid Interpretation Code 30-150 [facility] Hematologyon 05-22-2019 Hematocrit (Bld) [Volume fraction] 44.80 % Invalid Interpretation Code 37.8-51.0 [facility] Hemoglobin (Bld) [Mass/Vol] 15.30 g/dL Invalid Interpretation Code 12.6-17.0 [facility] MCH (RBC) [Entitic mass] 31.40 pg Invalid Interpretation Code 25.7-33.8 [facility] MCV (RBC) [Entitic vol] 92.0 fL Invalid Interpretation Code 81.0-100.2 [facility] Platelets (Bld) [#/Vol] 316.0 10*3/uL Invalid Interpretation Code 150-400 [facility] RBC (Bld) [#/Vol] 4.870 10*6/uL Invalid Interpretation Code 4.34-5.61 [facility] WBC (Bld) [#/Vol] 8.50 10*3/uL Invalid Interpretation Code 3.9-10.3 [facility] Imm/Pathon 05-22-2019 Prostate specific Ag [Mass/Vol] 0.59 ng/mL Invalid Interpretation Code 0.00-4.00 [facility] Laboratory - Chemistry and C hemistry - challengeon 05-22-2019 Bilirubin Ql (U) Negative Invalid Interpretation Code Negative [facility] Ketones Ql (U) Negative Invalid Interpretation Code Negative [facility] Urobilinogen (U) [Mass/Vol] normal Invalid Interpretation Code normal [facility] Laboratory - Hematology and Cell countson 05-22-2019 Hemoglobin Ql (U) Negative Invalid Interpretation Code Negative [facility] Laboratory - Urinalysison Leukocyte esterase Test strip Ql (U) Negative Invalid Interpretation Code Negative [facility] Nitrite Ql (U) Negative Invalid Interpretation Code Negative [facility] Protein Ql (U) Negative Invalid Interpretation Code Negative [facility] Metabolic Panelon 05-22-2019 Albumin [Mass/Vol] 4.30 g/dL Invalid Interpretation Code 3.7-4.5 [facility] ALP [Catalytic activity/Vol] 79.0 U/L Invalid Interpretation Code 31-155 [facility] ALT [Catalytic activity/Vol] 23.0 U/L Invalid Interpretation Code 0-50 [facility] Anion gap [Moles/Vol] 16 mmol/L Invalid Interpretation Code 10-20 [facility] AST [Catalytic activity/Vol] 15.0 U/L Invalid Interpretation Code 0-40 [facility] Bilirubin [Mass/Vol] 0.40 mg/dL Invalid Interpretation Code 0.0-1.0 [facility] Calcium [Mass/Vol] 9.60 mg/dL Invalid Interpretation Code 8.5-10.8 [facility] Chloride [Moles/Vol] 97.0 mmol/L Invalid Interpretation Code 100-112 [facility] CO2 [Moles/Vol] 27.0 mmol/L Invalid Interpretation Code 23-30 [facility] Creatinine [Mass/Vol] 1.10 mg/dL Invalid Interpretation Code 0.5-1.5 [facility] GFR/1.73 sq M predicted among non-blacks MDRD (S/P/Bld) [Vol rate/Area] 70 mL/min/{1.73_m2} Invalid Interpretation Code [facility] Glucose [Mass/Vol] 101.0 mg/dL Invalid Interpretation Code 80-117 [facility] Potassium [Moles/Vol] 4.30 mmol/L Invalid Interpretation Code 3.5-5.3 [facility] Protein [Mass/Vol] 7.60 g/dL Invalid Interpretation Code 6.3-7.9 [facility] Sodium [Moles/Vol] 136.0 mmol/L Invalid Interpretation Code 135-148 [facility] Urea nitrogen [Mass/Vol] 21.0 mg/dL Invalid Interpretation Code 7-25 [facility] Urea nitrogen/Creatinine [Mass ratio] 19 mg/mg Invalid Interpretation Code 6-20 [facility] Otheron 05-22-2019 Albumin/Globulin [Mass ratio] 1.3 {ratio} Invalid Interpretation Code 1.0-2.4 [facility] Bilirubin Ql (U) Negative Negative [facility] Cholesterol in VLDL [Mass/Vol] 42.0 mg/dL Invalid Interpretation Code 0-39 [place] [facility] Cholesterol.total/C holesterol in HDL [Mass ratio] 5 {ratio} Invalid Interpretation Code [place] [facility] Collection time (Andrei) [Date/time] 1:00 pm Invalid Interpretation Code [place] [facility] Erythrocyte distribution width (RBC) [Ratio] 12.40 % Invalid Interpretation Code 11.5-15.5 [place] [facility] Glucose Test strip (U) [Mass/Vol] 4+ Invalid Interpretation Code Negative [place] [facility] Hemoglobin Ql (U) Negative Negative [facility] MCHC (RBC) [Mass/Vol] 34.20 g/dL Invalid Interpretation Code 32.0-36.0 [place] [facility] Nitrite Ql (U) Negative Negative [place] [facility] pH (U) 5 [pH] Invalid Interpretation Code 5.0-9.0 [place] [facility] Platelet mean volume (Bld) [Entitic vol] 9.40 fL Invalid Interpretation Code 8.3-11.5 [place] [facility] Protein Ql (U) Negative Negative [place] [facility] Urobilinogen Test strip (U) [Mass/Vol] normal normal [place] [facility] 23.0 U/L 0-50 [place] [facility] Urinalysison 05-22-2019 Clarity (U) Clear Invalid Interpretation Code Clear [facility] Color (U) yellow Invalid Interpretation Code yellow [facility] Ketones Ql (U) Negative Negative [facility] Leukocyte esterase Test strip Ql (U) Negative Negative [facility] Specific gravity (U) [Rel density] 1.015 Invalid Interpretation Code 1.003-1.030 [facility] Laboratory - Chemistry and C hemistry - challengeon 04-09-2019 Bilirubin Ql (U) Negative Invalid Interpretation Code Negative [facility] Urobilinogen (U) [Mass/Vol] normal Invalid Interpretation Code normal [facility] Laboratory - Hematology and Cell countson 04-09-2019 Hemoglobin Ql (U) Negative Invalid Interpretation Code Negative [facility] Laboratory - Urinalysison Leukocyte esterase Test strip Ql (U) Negative Invalid Interpretation Code Negative [facility] Nitrite Ql (U) Negative Invalid Interpretation Code Negative [facility] Metabolic Panelon 04-09-2019 Albumin [Mass/Vol] 4.50 g/dL Invalid Interpretation Code 3.7-4.5 [facility] ALP [Catalytic activity/Vol] 73.0 U/L Invalid Interpretation Code 31-155 [facility] ALT [Catalytic activity/Vol] 47.0 U/L Invalid Interpretation Code 0-50 [facility] Anion gap [Moles/Vol] 17 mmol/L Invalid Interpretation Code 10-20 [facility] AST [Catalytic activity/Vol] 41.0 U/L Invalid Interpretation Code 0-40 [facility] Bilirubin [Mass/Vol] 0.50 mg/dL Invalid Interpretation Code 0.0-1.0 [facility] Calcium [Mass/Vol] 9.30 mg/dL Invalid Interpretation Code 8.5-10.8 [facility] Chloride [Moles/Vol] 97.0 mmol/L Invalid Interpretation Code 100-112 [facility] CO2 [Moles/Vol] 27.0 mmol/L Invalid Interpretation Code 23-30 [facility] Creatinine [Mass/Vol] 0.90 mg/dL Invalid Interpretation Code 0.5-1.5 [facility] GFR/1.73 sq M predicted among non-blacks MDRD (S/P/Bld) [Vol rate/Area] 88 mL/min/{1.73_m2} Invalid Interpretation Code [facility] Glucose [Mass/Vol] 186.0 mg/dL Invalid Interpretation Code 80-117 [facility] HbA1c (Bld) [Mass fraction] 7.70 % Invalid Interpretation Code 4.3-6.3 [facility] Potassium [Moles/Vol] 4.0 mmol/L Invalid Interpretation Code 3.5-5.3 [facility] Protein [Mass/Vol] 7.60 g/dL Invalid Interpretation Code 6.3-7.9 [facility] Sodium [Moles/Vol] 137.0 mmol/L Invalid Interpretation Code 135-148 [facility] Urea nitrogen [Mass/Vol] 16.0 mg/dL Invalid Interpretation Code 7-25 [facility] Urea nitrogen/Creatinine [Mass ratio] 18 mg/mg Invalid Interpretation Code 6-20 [facility] Otheron 09-30-2019 Albumin (U) [Mass/Vol] 48.5 Invalid Interpretation Code <17.0 [place] [facility] Albumin/Globulin [Mass ratio] 1.5 {ratio} Invalid Interpretation Code 1.0-2.4 [place] [facility] Bilirubin Ql (U) Negative Negative [facility] Gamma glutamyl transferase [Catalytic activity/Vol] 52 U/L Invalid Interpretation Code 7-51 [place] [facility] Glucose Test strip (U) [Mass/Vol] 4+ Invalid Interpretation Code Negative [place] [facility] Hemoglobin Ql (U) Negative Negative [facility] Nitrite Ql (U) Negative Negative [place] [facility] pH (U) 6 [pH] Invalid Interpretation Code 5.0-9.0 [place] [facility] Protein Ql (U) 1+ Invalid Interpretation Code Negative [place] [facility] Urobilinogen Test strip (U) [Mass/Vol] normal normal [place] [facility] 174 [facility] 47.0 U/L 0-50 [facility] 174.0 mg/dL Invalid Interpretation Code [place] [facility] Urinalysison 04-09-2019 Albumin/Creatinine DL <= 20 mg/L (U) [Mass ratio] 70.7 mg/g Invalid Interpretation Code 0.0-30.0 [facility] Clarity (U) clear Invalid Interpretation Code Clear [facility] Color (U) yellow Invalid Interpretation Code yellow [facility] Creatinine (U) [Mass/Vol] 68.60 mg/dL Invalid Interpretation Code Not Estab. mg/dL [facility] Ketones Ql (U) 2+ Invalid Interpretation Code Negative [facility] Leukocyte esterase Test strip Ql (U) Negative Negative [facility] Specific gravity (U) [Rel density] 1.010 Invalid Interpretation Code 1.003-1.030 [facility] Laboratory - Chemistry and C hemistry - challengeon 12-08-2018 Bilirubin Ql (U) Negative Invalid Interpretation Code Negative [facility] Urobilinogen (U) [Mass/Vol] normal Invalid Interpretation Code normal [facility] Laboratory - Hematology and Cell countson 12-08-2018 Hemoglobin Ql (U) Negative Invalid Interpretation Code Negative [facility] Laboratory - Urinalysison Leukocyte esterase Test strip Ql (U) Negative Invalid Interpretation Code Negative [facility] Nitrite Ql (U) Negative Invalid Interpretation Code Negative [facility] Protein Ql (U) Negative Invalid Interpretation Code Negative [facility] Metabolic Panelon 12-08-2018 Glucose mass conc 255.0 mg/dL Invalid Interpretation Code 80-117 [facility] Hemoglobin A1c/Hemoglobin.tota l mass fraction (Bld) 8.80 % Invalid Interpretation Code 4.3-6.3 [facility] Otheron 12-08-2018 Bilirubin Ql (U) Negative Negative [facility] [email or web address] Glucose Test strip mass conc (U) 4+ Invalid Interpretation Code Negative [facility] Hemoglobin Ql (U) Negative Negative [facility] Nitrite Ql (U) Negative Negative [facility] pH (U) 6 [pH] Invalid Interpretation Code 5.0-9.0 [facility] Protein Ql (U) Negative Negative [facility] Urobilinogen Test strip mass conc (U) normal normal [facility] 206 [facility] 206.0 mg/dL Invalid Interpretation Code [facility] Urinalysison 12-08-2018 Clarity Nom (U) Clear Invalid Interpretation Code Clear [facility] Color Nom (U) yellow Invalid Interpretation Code yellow [facility] Ketones Ql (U) 1+ Invalid Interpretation Code Negative [facility] Leukocyte esterase Test strip Ql (U) Negative Negative [facility] Specific gravity Relative Density (U) 1.015 Invalid Interpretation Code 1.003-1.030 [facility] 08-23-2018 Cholesterol in HDL mass conc 35.0 mg/dL Invalid Interpretation Code 36-100 [facility] Cholesterol in LDL mass conc 90.0 mg/dL Invalid Interpretation Code 0-130 [facility] Cholesterol mass conc 204.0 mg/dL Invalid Interpretation Code 0-200 [facility] Triglyceride mass conc 396.0 mg/dL Invalid Interpretation Code 30-150 [facility] Hematologyon 08-23-2018 Hematocrit Volume Fraction (Bld) 44.0 % Invalid Interpretation Code 37.8-51.0 [facility] Hemoglobin mass conc (Bld) 15.20 g/dL Invalid Interpretation Code 12.6-17.0 [facility] MCH Entitic mass (RBC) 32.0 pg Invalid Interpretation Code 25.7-33.8 [facility] MCV Entitic volume (RBC) 92.60 fL Invalid Interpretation Code 81.0-100.2 [facility] Platelets #/vol (Bld) 244.0 10*3/uL Invalid Interpretation Code 150-400 [facility] RBC #/vol (Bld) 4.750 10*6/uL Invalid Interpretation Code 4.34-5.61 [facility] WBC #/vol (Bld) 6.80 10*3/uL Invalid Interpretation Code 3.9-10.3 [facility] Imm/Pathon 08-23-2018 Prostate specific Ag mass conc 0.61 ng/mL Invalid Interpretation Code 0.00-4.00 [facility] Metabolic Panelon 08-23-2018 Albumin mass conc 4.50 g/dL Invalid Interpretation Code 3.7-4.5 [facility] ALP enzyme act/vol 75.0 U/L Invalid Interpretation Code 31-155 [facility] ALT enzyme act/vol 66.0 U/L Invalid Interpretation Code 0-50 [facility] Anion gap molar conc 20 mmol/L Invalid Interpretation Code 10-20 [facility] AST enzyme act/vol 39.0 U/L Invalid Interpretation Code 0-40 [facility] Bilirubin mass conc 0.40 mg/dL Invalid Interpretation Code 0.0-1.0 [facility] Calcium mass conc 9.40 mg/dL Invalid Interpretation Code 8.5-10.8 [facility] Chloride molar conc 96 mmol/L Invalid Interpretation Code 100-112 [facility] CO2 molar conc 28 mmol/L Invalid Interpretation Code 23-30 [facility] Creatinine mass conc 0.90 mg/dL Invalid Interpretation Code 0.5-1.5 [facility] GFR/1.73 sq M predicted among non-blacks MDRD vol rate/area (S/P/Bld) 88 mL/min/{1.73_m2} Invalid Interpretation Code [facility] Glucose mass conc 328.0 mg/dL Invalid Interpretation Code 80-117 [facility] Hemoglobin A1c/Hemoglobin.tota l mass fraction (Bld) 10.50 % Invalid Interpretation Code 4.3-6.3 [facility] Potassium molar conc 4.1 mmol/L Invalid Interpretation Code 3.5-5.3 [facility] Protein mass conc 7.60 g/dL Invalid Interpretation Code 6.3-7.9 [facility] Sodium molar conc 140 mmol/L Invalid Interpretation Code 135-148 [facility] Urea nitrogen mass conc 13.0 mg/dL Invalid Interpretation Code 7-25 [facility] Urea nitrogen/Creatinine mass ratio 14 mg/mg Invalid Interpretation Code 6-20 [facility] No Panel Informationon 08-23 1175 Invalid Interpretation Code 243-911 [facility] Otheron 08-23-2018 Albumin mass conc (U) 64.2 Invalid Interpretation Code <17.0 [facility] Albumin/Globulin mass ratio 1.5 {ratio} Invalid Interpretation Code 1.0-2.4 [facility] Cholesterol in VLDL mass conc 79.0 mg/dL Invalid Interpretation Code 0-39 [facility] Cholesterol.total/C holesterol in HDL mass ratio 6 {ratio} Invalid Interpretation Code [facility] Cobalamin (Vitamin B12) mass conc 1175 pg/mL 243-911 [facility] Erythrocyte distribution width Ratio (RBC) 11.70 % Invalid Interpretation Code 11.5-15.5 [facility] MCHC mass conc (RBC) 34.50 g/dL Invalid Interpretation Code 32.0-36.0 [facility] Platelet mean volume Entitic volume (Bld) 9.80 fL Invalid Interpretation Code 8.3-11.5 [facility] 255 [facility] 18.9 Invalid Interpretation Code >5.4 [facility] 255.0 mg/dL Invalid Interpretation Code [facility] 66.0 U/L 0-50 [facility] Urinalysison 08-23-2018 Albumin/Creatinine DL <= 20 mg/L mass ratio (U) 334.4 mg/g Invalid Interpretation Code 0.0-30.0 [facility] Creatinine mass conc (U) 19.20 mg/dL Invalid Interpretation Code Not Estab. mg/dL [facility] Laboratory - Urinalysison Glucose Test strip (U) [Mass/Vol] Negative Invalid Interpretation Code negative [facility] Protein (U) [Mass/Vol] Negative Invalid Interpretation Code negative [facility] Metabolic Panelon 06-12-2018 Glucose mass conc 195.0 mg/dL Invalid Interpretation Code 80-117 [facility] Hemoglobin A1c/Hemoglobin.tota l mass fraction (Bld) 9.50 % Invalid Interpretation Code 4.3-6.3 [facility] Otheron 06-12-2018 Glucose Test strip mass conc (U) Negative negative [facility] 226 [facility] 226.0 mg/dL Invalid Interpretation Code [facility] Urinalysison 06-12-2018 Protein mass conc (U) Negative negative [facility] 02-22-2018 Cholesterol in HDL mass conc 30.0 mg/dL Invalid Interpretation Code 36-100 [facility] Cholesterol mass conc 263.0 mg/dL Invalid Interpretation Code 0-200 [facility] Triglyceride mass conc 797.0 mg/dL Invalid Interpretation Code 30-150 [facility] Metabolic Panelon 02-22-2018 Albumin mass conc 4.50 g/dL Invalid Interpretation Code 3.7-4.5 [facility] ALP enzyme act/vol 83.0 U/L Invalid Interpretation Code 31-155 [facility] ALT enzyme act/vol 49.0 U/L Invalid Interpretation Code 0-50 [facility] Anion gap molar conc 20 mmol/L Invalid Interpretation Code 10-20 [facility] AST enzyme act/vol 22.0 U/L Invalid Interpretation Code 0-40 [facility] Bilirubin mass conc 0.70 mg/dL Invalid Interpretation Code 0.0-1.0 [facility] Calcium mass conc 9.70 mg/dL Invalid Interpretation Code 8.5-10.8 [facility] Chloride molar conc 93 mmol/L Invalid Interpretation Code 100-112 [facility] CO2 molar conc 27 mmol/L Invalid Interpretation Code 23-30 [facility] Creatinine mass conc 0.90 mg/dL Invalid Interpretation Code 0.5-1.5 [facility] GFR/1.73 sq M predicted among non-blacks MDRD vol rate/area (S/P/Bld) 88 mL/min/{1.73_m2} Invalid Interpretation Code [facility] Glucose mass conc 323.0 mg/dL Invalid Interpretation Code 80-117 [facility] Hemoglobin A1c/Hemoglobin.tota l mass fraction (Bld) 10.0 % Invalid Interpretation Code 4.3-6.3 [facility] Potassium molar conc 4.0 mmol/L Invalid Interpretation Code 3.5-5.3 [facility] Protein mass conc 7.70 g/dL Invalid Interpretation Code 6.3-7.9 [facility] Sodium molar conc 136 mmol/L Invalid Interpretation Code 135-148 [facility] Urea nitrogen mass conc 13.0 mg/dL Invalid Interpretation Code 7-25 [facility] Urea nitrogen/Creatinine mass ratio 14 mg/mg Invalid Interpretation Code 6-20 [facility] Otheron 02-22-2018 Albumin mass conc (U) 141.8 Invalid Interpretation Code <17.0 [facility] Albumin/Globulin mass ratio 1.4 {ratio} Invalid Interpretation Code 1.0-2.4 [facility] Cholesterol in VLDL mass conc 159.0 mg/dL Invalid Interpretation Code 0-39 [facility] Cholesterol.total/C holesterol in HDL mass ratio 9 {ratio} Invalid Interpretation Code [facility] 240 [facility] 49.0 U/L 0-50 [facility] 240.0 mg/dL Invalid Interpretation Code [facility] Urinalysison 02-22-2018 Albumin/Creatinine DL <= 20 mg/L mass ratio (U) 179.5 mg/g Invalid Interpretation Code 0.0-30.0 [facility] Creatinine mass conc (U) 79.0 mg/dL Invalid Interpretation Code Not Estab. mg/dL [facility] Laboratory - Chemistry and C hemistry - challengeon 11-25-2017 Bilirubin Ql (U) Negative Invalid Interpretation Code Negative [facility] Ketones Ql (U) Negative Invalid Interpretation Code Negative [facility] Urobilinogen (U) [Mass/Vol] normal Invalid Interpretation Code normal [facility] Laboratory - Hematology and Cell countson 11-25-2017 Hemoglobin Ql (U) Negative Invalid Interpretation Code Negative [facility] Laboratory - Urinalysison Leukocyte esterase Test strip Ql (U) Negative Invalid Interpretation Code Negative [facility] Nitrite Ql (U) Negative Invalid Interpretation Code Negative [facility] Protein Ql (U) Negative Invalid Interpretation Code Negative [facility] Metabolic Panelon 11-25-2017 Glucose mass conc 350.0 mg/dL Invalid Interpretation Code 80-117 [facility] Hemoglobin A1c/Hemoglobin.tota l mass fraction (Bld) 8.60 % Invalid Interpretation Code 4.3-6.3 [facility] Otheron 11-25-2017 Bilirubin Ql (U) Negative Negative [facility] Glucose Test strip mass conc (U) 4+ Invalid Interpretation Code Negative [facility] Hemoglobin Ql (U) Negative Negative [facility] Nitrite Ql (U) Negative Negative [facility] pH (U) 5 [pH] Invalid Interpretation Code 4.5-7.8 [facility] Protein Ql (U) Negative Negative [facility] Urobilinogen Test strip mass conc (U) normal normal [facility] 200 [facility] 200.0 mg/dL Invalid Interpretation Code [facility] Urinalysison 11-25-2017 Clarity Nom (U) Clear Invalid Interpretation Code Clear [facility] Color Nom (U) yellow Invalid Interpretation Code yellow [facility] Ketones Ql (U) Negative Negative [facility] Leukocyte esterase Test strip Ql (U) Negative Negative [facility] Specific gravity Relative Density (U) 1.010 Invalid Interpretation Code 1.003-1.029 [facility]acon 08-24-2017 Cholesterol in HDL mass conc 39.0 mg/dL Invalid Interpretation Code 36-100 [facility] Cholesterol in LDL mass conc 138.0 mg/dL Invalid Interpretation Code 0-130 [facility] Cholesterol mass conc 237.0 mg/dL Invalid Interpretation Code 0-200 [facility] Triglyceride mass conc 301.0 mg/dL Invalid Interpretation Code 30-150 [facility] Metabolic Panelon 08-24-2017 ALT enzyme act/vol 52.0 U/L Invalid Interpretation Code 0-50 [facility] Anion gap molar conc 17 mmol/L Invalid Interpretation Code 10-20 [facility] AST enzyme act/vol 38.0 U/L Invalid Interpretation Code 0-40 [facility] Calcium mass conc 9.50 mg/dL Invalid Interpretation Code 8.5-10.8 [facility] Chloride molar conc 98 mmol/L Invalid Interpretation Code 100-112 [facility] CO2 molar conc 29 mmol/L Invalid Interpretation Code 23-30 [facility] Creatinine mass conc 0.90 mg/dL Invalid Interpretation Code 0.5-1.5 [facility] GFR/1.73 sq M predicted among non-blacks MDRD vol rate/area (S/P/Bld) 88 mL/min/{1.73_m2} Invalid Interpretation Code [facility] Glucose mass conc 146.0 mg/dL Invalid Interpretation Code 80-117 [facility] Hemoglobin A1c/Hemoglobin.tota l mass fraction (Bld) 8.40 % Invalid Interpretation Code 4.3-6.3 [facility] Potassium molar conc 3.8 mmol/L Invalid Interpretation Code 3.5-5.3 [facility] Sodium molar conc 140 mmol/L Invalid Interpretation Code 135-148 [facility] Urea nitrogen mass conc 16.0 mg/dL Invalid Interpretation Code 7-25 [facility] Urea nitrogen/Creatinine mass ratio 18 mg/mg Invalid Interpretation Code 6-20 [facility] Otheron 08-24-2017 Albumin mass conc (U) 160.5 Invalid Interpretation Code <17.0 [facility] Cholesterol in VLDL mass conc 60.0 mg/dL Invalid Interpretation Code 0-39 [facility] Cholesterol.total/C holesterol in HDL mass ratio 6 {ratio} Invalid Interpretation Code [facility] 194 [facility] 194.0 mg/dL Invalid Interpretation Code [facility] 52.0 U/L 0-50 [facility] Urinalysison 08-24-2017 Albumin/Creatinine DL <= 20 mg/L mass ratio (U) 105.5 mg/g Invalid Interpretation Code 0.0-30.0 [facility] Creatinine mass conc (U) 152.10 mg/dL Invalid Interpretation Code Not Estab. mg/dL [facility] Laboratory - Urinalysison Protein (U) [Mass/Vol] Negative Invalid Interpretation Code negative [facility] Metabolic Panelon 08-01-2017 Glucose mass conc 259.0 mg/dL Invalid Interpretation Code 80-117 [facility] Hemoglobin A1c/Hemoglobin.tota l mass fraction (Bld) 8.30 % Invalid Interpretation Code 4.3-6.3 [facility] Otheron 08-01-2017 Glucose Test strip mass conc (U) trace Invalid Interpretation Code negative [facility] pH (U) 6.0 [pH] Invalid Interpretation Code 4.5-7.8 [facility] 192 [facility] 192.0 mg/dL Invalid Interpretation Code [facility] Urinalysison 08-01-2017 Protein mass conc (U) Negative negative [facility] Laboratory - Chemistry and C hemistry - challengeon 03-29-2017 Bilirubin Ql (U) Negative Invalid Interpretation Code Negative [facility] Ketones Ql (U) Negative Invalid Interpretation Code Negative [facility] Urobilinogen (U) [Mass/Vol] normal Invalid Interpretation Code normal [facility] Laboratory - Hematology and Cell countson 03-29-2017 Hemoglobin Ql (U) Negative Invalid Interpretation Code Negative [facility] Laboratory - Urinalysison Leukocyte esterase Test strip Ql (U) Negative Invalid Interpretation Code Negative [facility] Nitrite Ql (U) Negative Invalid Interpretation Code Negative [facility] Protein Ql (U) Negative Invalid Interpretation Code Negative [facility] Metabolic Panelon 03-29-2017 Glucose mass conc 284.0 mg/dL Invalid Interpretation Code 80-117 [place] [facility] Hemoglobin A1c/Hemoglobin.tota l mass fraction (Bld) 8.0 % Invalid Interpretation Code 4.3-6.3 [place] [facility] Otheron 03-29-2017 Albumin mass conc (U) < 12.0 Invalid Interpretation Code < 17.0 ug/mL [place] [facility] Bilirubin Ql (U) Negative Negative [facility] Glucose Test strip mass conc (U) 4+ Invalid Interpretation Code Negative [place] [facility] Hemoglobin Ql (U) Negative Negative [facility] Nitrite Ql (U) Negative Negative [place] [facility] pH (U) 6 [pH] Invalid Interpretation Code 4.5-7.8 [place] [facility] Protein Ql (U) Negative Negative [place] [facility] Urobilinogen Test strip mass conc (U) normal normal [place] [facility] 183 [place] [facility] 183.0 mg/dL Invalid Interpretation Code [place] [facility] Urinalysison 03-29-2017 Clarity Nom (U) clear Invalid Interpretation Code Clear [place] [facility] Color Nom (U) yellow Invalid Interpretation Code yellow [place] [facility] Creatinine mass conc (U) 14.20 mg/dL Invalid Interpretation Code Not Estab. mg/dL [place] [facility] Ketones Ql (U) Negative Negative [place] [facility] Leukocyte esterase Test strip Ql (U) Negative Negative [place] [facility] Specific gravity Relative Density (U) 1.015 Invalid Interpretation Code 1.003-1.029 [facility] Laboratory - Chemistry and C hemistry - challengeon 11-23-2016 Bilirubin Ql (U) Negative Invalid Interpretation Code Negative [facility] Ketones Ql (U) Negative Invalid Interpretation Code Negative [facility] Urobilinogen (U) [Mass/Vol] normal Invalid Interpretation Code normal [facility] Laboratory - Urinalysison Leukocyte esterase Test strip Ql (U) Negative Invalid Interpretation Code Negative [facility] Nitrite Ql (U) Negative Invalid Interpretation Code Negative [facility] Metabolic Panelon 11-23-2016 Glucose mass conc 195.0 mg/dL Invalid Interpretation Code 80-117 [facility] Hemoglobin A1c/Hemoglobin.tota l mass fraction (Bld) 6.90 % Invalid Interpretation Code 4.3-6.3 [facility] Otheron 11-23-2016 Bilirubin Ql (U) Negative Negative [facility] [email or web address] Glucose Test strip mass conc (U) 4+ Invalid Interpretation Code Negative [facility] Hemoglobin Ql (U) Trace Invalid Interpretation Code Negative [facility] Nitrite Ql (U) Negative Negative [facility] pH (U) 6 [pH] Invalid Interpretation Code 4.5-7.8 [facility] Protein Ql (U) 1+ Invalid Interpretation Code Negative [facility] Urobilinogen Test strip mass conc (U) normal normal [facility] 151 [facility] 151.0 mg/dL Invalid Interpretation Code [facility] Urinalysison 11-23-2016 Clarity Nom (U) clear Invalid Interpretation Code Clear [facility] Color Nom (U) yellow Invalid Interpretation Code yellow [facility] Ketones Ql (U) Negative Negative [facility] Leukocyte esterase Test strip Ql (U) Negative Negative [facility] Specific gravity Relative Density (U) 1.010 Invalid Interpretation Code 1.003-1.029 [facility]acon 09-21-2016 Cholesterol in HDL mass conc 32.0 mg/dL Invalid Interpretation Code 36-100 [facility] Cholesterol in LDL mass conc 80.0 mg/dL Invalid Interpretation Code 0-130 [facility] Cholesterol mass conc 180.0 mg/dL Invalid Interpretation Code 0-200 [facility] Triglyceride mass conc 340.0 mg/dL Invalid Interpretation Code 30-150 [facility] Metabolic Panelon 09-21-2016 ALT enzyme act/vol 48.0 U/L Invalid Interpretation Code 0-50 [facility] Anion gap molar conc 20 mmol/L Invalid Interpretation Code 10-20 [facility] AST enzyme act/vol 22.0 U/L Invalid Interpretation Code 0-40 [facility] Calcium mass conc 9.70 mg/dL Invalid Interpretation Code 8.5-10.8 [facility] Chloride molar conc 100 mmol/L Invalid Interpretation Code 100-112 [facility] CO2 molar conc 26 mmol/L Invalid Interpretation Code 23-30 [facility] Creatinine mass conc 1.10 mg/dL Invalid Interpretation Code 0.5-1.5 [facility] GFR/1.73 sq M predicted among non-blacks MDRD vol rate/area (S/P/Bld) 70 mL/min/{1.73_m2} Invalid Interpretation Code [facility] Glucose mass conc 158.0 mg/dL Invalid Interpretation Code 80-117 [facility] Hemoglobin A1c/Hemoglobin.tota l mass fraction (Bld) 7.10 % Invalid Interpretation Code 4.3-6.3 [facility] Potassium molar conc 4.1 mmol/L Invalid Interpretation Code 3.5-5.3 [facility] Sodium molar conc 142 mmol/L Invalid Interpretation Code 135-148 [facility] Urea nitrogen mass conc 18.0 mg/dL Invalid Interpretation Code 7-25 [facility] Urea nitrogen/Creatinine mass ratio 16 mg/mg Invalid Interpretation Code 6-20 [facility] Otheron 09-21-2016 Cholesterol in VLDL mass conc 68.0 mg/dL Invalid Interpretation Code 0-39 [facility] Cholesterol.total/C holesterol in HDL mass ratio 6 {ratio} Invalid Interpretation Code [facility] 157 [facility] 48.0 U/L 0-50 [facility] 157.0 mg/dL Invalid Interpretation Code [facility] Laboratory - Chemistry and C hemistry - challengeon 07-27-2016 Bilirubin Ql (U) Negative Invalid Interpretation Code Negative [facility] Urobilinogen (U) [Mass/Vol] normal Invalid Interpretation Code normal [facility] Laboratory - Hematology and Cell countson 07-27-2016 Hemoglobin Ql (U) Negative Invalid Interpretation Code Negative [facility] Laboratory - Urinalysison Leukocyte esterase Test strip Ql (U) Negative Invalid Interpretation Code Negative [facility] Nitrite Ql (U) Negative Invalid Interpretation Code Negative [facility] Protein Ql (U) Negative Invalid Interpretation Code Negative [facility] Metabolic Panelon 07-27-2016 Anion gap molar conc 19 mmol/L Invalid Interpretation Code 10-20 [facility] Calcium mass conc 9.90 mg/dL Invalid Interpretation Code 8.5-10.8 [facility] Chloride molar conc 96 mmol/L Invalid Interpretation Code 100-112 [facility] CO2 molar conc 29 mmol/L Invalid Interpretation Code 23-30 [facility] Creatinine mass conc 1.10 mg/dL Invalid Interpretation Code 0.5-1.5 [facility] GFR/1.73 sq M predicted among non-blacks MDRD vol rate/area (S/P/Bld) 70 mL/min/{1.73_m2} Invalid Interpretation Code [facility] Glucose mass conc 166.0 mg/dL Invalid Interpretation Code 80-117 [facility] Hemoglobin A1c/Hemoglobin.tota l mass fraction (Bld) 7.50 % Invalid Interpretation Code 4.3-6.3 [facility] Potassium molar conc 3.9 mmol/L Invalid Interpretation Code 3.5-5.3 [facility] [employer] Sodium molar conc 140 mmol/L Invalid Interpretation Code 135-148 [facility] [facility] Urea nitrogen mass conc 14.0 mg/dL Invalid Interpretation Code 7-25 [place] [facility] Urea nitrogen/Creatinine mass ratio 13 mg/mg Invalid Interpretation Code 6-20 [place] [facility] Otheron 07-27-2016 Albumin mass conc (U) < 12.0 Invalid Interpretation Code < 17.0 ug/mL [place] [facility] Bilirubin Ql (U) Negative Negative [facility] [employer] Glucose Test strip mass conc (U) 4+ Invalid Interpretation Code Negative [facility] Hemoglobin Ql (U) Negative Negative [facility] [employer] Nitrite Ql (U) Negative Negative [facility] pH (U) 5 [pH] Invalid Interpretation Code 4.5-7.8 [place] [facility] Protein Ql (U) Negative Negative [place] [facility] Urobilinogen Test strip mass conc (U) normal normal [place] [facility] 169 [place] [facility] 169.0 mg/dL Invalid Interpretation Code [place] [facility] Thyroidon 07-27-2016 T4 mass conc 5.55 ug/dL Invalid Interpretation Code 5.00-12.00 [place] [facility] Thyrotropin Qn 2.71 m[IU]/L Invalid Interpretation Code 0.50-4.00 [place] [facility] Urinalysison 07-27-2016 Clarity Nom (U) clear Invalid Interpretation Code Clear [facility] Color Nom (U) yellow Invalid Interpretation Code yellow [facility] Creatinine mass conc (U) 85.80 mg/dL Invalid Interpretation Code Not Estab. mg/dL [facility] Ketones Ql (U) 1+ Invalid Interpretation Code Negative [facility] Leukocyte esterase Test strip Ql (U) Negative Negative [facility] Specific gravity Relative Density (U) 1.015 Invalid Interpretation Code 1.003-1.029 [facility] Laboratory - Chemistry and C hemistry - challengeon 03-04-2016 Bilirubin Ql (U) Negative Invalid Interpretation Code Negative [facility] Ketones Ql (U) Negative Invalid Interpretation Code Negative [facility] Urobilinogen (U) [Mass/Vol] normal Invalid Interpretation Code normal [facility] Laboratory - Hematology and Cell countson 03-04-2016 Hemoglobin Ql (U) Negative Invalid Interpretation Code Negative [facility] Laboratory - Urinalysison Leukocyte esterase Test strip Ql (U) Negative Invalid Interpretation Code Negative [facility] Nitrite Ql (U) Negative Invalid Interpretation Code Negative [facility] Protein Ql (U) Negative Invalid Interpretation Code Negative [facility] Metabolic Panelon 03-04-2016 Anion gap molar conc 16 mmol/L Invalid Interpretation Code 10-20 [facility] Calcium mass conc 10.30 mg/dL Invalid Interpretation Code 8.5-10.8 [facility] Chloride molar conc 99 mmol/L Invalid Interpretation Code 100-112 [place] [facility] CO2 molar conc 30 mmol/L Invalid Interpretation Code 23-30 [place] [facility] Creatinine mass conc 1.0 mg/dL Invalid Interpretation Code 0.5-1.5 [place] [facility] GFR/1.73 sq M predicted among non-blacks MDRD vol rate/area (S/P/Bld) 79 mL/min/{1.73_m2} Invalid Interpretation Code [place] [facility] Glucose mass conc 190.0 mg/dL Invalid Interpretation Code 80-117 [place] [facility] Hemoglobin A1c/Hemoglobin.tota l mass fraction (Bld) 6.70 % Invalid Interpretation Code 4.3-6.3 [place] [facility] Potassium molar conc 4.1 mmol/L Invalid Interpretation Code 3.5-5.3 [place] [facility] Sodium molar conc 141 mmol/L Invalid Interpretation Code 135-148 [place] [facility] Urea nitrogen mass conc 12.0 mg/dL Invalid Interpretation Code 7-25 [place] [facility] Urea nitrogen/Creatinine mass ratio 12 mg/mg Invalid Interpretation Code 6-20 [place] [facility] Otheron 03-04-2016 Bilirubin Ql (U) Negative Negative [facility] [employer] Glucose Test strip mass conc (U) 4+ Invalid Interpretation Code Negative [place] [facility] Hemoglobin Ql (U) Negative Negative [facility] Nitrite Ql (U) Negative Negative [place] [facility] pH (U) 6 [pH] Invalid Interpretation Code 4.5-7.8 [facility] Protein Ql (U) Negative Negative [facility] Urobilinogen Test strip mass conc (U) normal normal [facility] 146 [facility] 146.0 mg/dL Invalid Interpretation Code [facility] Urinalysison 03-04-2016 Clarity Nom (U) clear Invalid Interpretation Code Clear [facility] Color Nom (U) yellow Invalid Interpretation Code yellow [facility] Ketones Ql (U) Negative Negative [facility] Leukocyte esterase Test strip Ql (U) Negative Negative [facility] Specific gravity Relative Density (U) 1.015 Invalid Interpretation Code 1.003-1.029 [facility] Laboratory - Chemistry and C hemistry - challengeon 11-26-2015 Bilirubin Ql (U) Negative Invalid Interpretation Code Negative [facility] Urobilinogen (U) [Mass/Vol] normal Invalid Interpretation Code normal [facility] Laboratory - Hematology and Cell countson 11-26-2015 Hemoglobin Ql (U) Negative Invalid Interpretation Code Negative [facility] Laboratory - Urinalysison Leukocyte esterase Test strip Ql (U) Negative Invalid Interpretation Code Negative [facility] Nitrite Ql (U) Negative Invalid Interpretation Code Negative [facility] Protein Ql (U) Negative Invalid Interpretation Code Negative [facility] Metabolic Panelon 11-26-2015 Glucose mass conc 220.0 mg/dL Invalid Interpretation Code 80-117 [place] [facility] Hemoglobin A1c/Hemoglobin.tota l mass fraction (Bld) 9.70 % Invalid Interpretation Code 4.3-6.3 [place] [facility] Otheron 11-26-2015 Albumin mass conc (U) < 12.0 Invalid Interpretation Code < 4.0-17.0 [place] [facility] Bilirubin Ql (U) Negative Negative [facility] Glucose Test strip mass conc (U) 4+ Invalid Interpretation Code Negative [place] [facility] Hemoglobin Ql (U) Negative Negative [facility] Nitrite Ql (U) Negative Negative [facility] pH (U) 6 [pH] Invalid Interpretation Code 4.5-7.8 [place] [facility] Protein Ql (U) Negative Negative [place] [facility] Urobilinogen Test strip mass conc (U) normal normal [place] [facility] 232 [place] [facility] 232.0 mg/dL Invalid Interpretation Code [place] [facility] Thyroidon 11-26-2015 T4 mass conc 5.77 ug/dL Invalid Interpretation Code 5.00-12.00 [place] [facility] Thyrotropin Qn 2.60 m[IU]/L Invalid Interpretation Code 0.50-4.00 [place] [facility] Urinalysison 11-26-2015 Clarity Nom (U) clear Invalid Interpretation Code Clear [place] [facility] Color Nom (U) yellow Invalid Interpretation Code yellow [place] [facility] Creatinine mass conc (U) 66.20 mg/dL Invalid Interpretation Code Not Estab. mg/dL [facility] Ketones Ql (U) 2+ Invalid Interpretation Code Negative [facility] Leukocyte esterase Test strip Ql (U) Negative Negative [facility] Specific gravity Relative Density (U) 1.010 Invalid Interpretation Code 1.003-1.029 [facility] Laboratory - Chemistry and C hemistry - challengeon 11-07-2015 Cortisol [Mass/Vol] ug/dL Invalid Interpretation Code 3.1-22.4 [facility] Otheron 11-07-2015 Cortisol mass conc ug/dL 3.1-22.4 [facility] Laboratory - Chemistry and C hemistry - challengeon 10-29-2015 Bilirubin Ql (U) Negative Invalid Interpretation Code Negative [facility] Urobilinogen (U) [Mass/Vol] normal Invalid Interpretation Code normal [facility] Laboratory - Hematology and Cell countson 10-29-2015 Hemoglobin Ql (U) Negative Invalid Interpretation Code Negative [facility] Laboratory - Urinalysison Leukocyte esterase Test strip Ql (U) Negative Invalid Interpretation Code Negative [facility] Nitrite Ql (U) Negative Invalid Interpretation Code Negative [facility] Protein Ql (U) Negative Invalid Interpretation Code Negative [facility] Metabolic Panelon 10-29-2015 Anion gap molar conc 20 mmol/L Invalid Interpretation Code 10-20 [facility] Calcium mass conc 9.70 mg/dL Invalid Interpretation Code 8.5-10.8 [facility] Chloride molar conc 96 mmol/L Invalid Interpretation Code 100-112 [place] [facility] CO2 molar conc 27 mmol/L Invalid Interpretation Code 23-30 [place] [facility] Creatinine mass conc 0.80 mg/dL Invalid Interpretation Code 0.5-1.5 [place] [facility] GFR/1.73 sq M predicted among non-blacks MDRD vol rate/area (S/P/Bld) 102 mL/min/{1.73_m2} Invalid Interpretation Code [place] [facility] Glucose mass conc 286.0 mg/dL Invalid Interpretation Code 80-117 [place] [facility] Hemoglobin A1c/Hemoglobin.tota l mass fraction (Bld) 12.60 % Invalid Interpretation Code 4.3-6.3 [place] [facility] Potassium molar conc 3.6 mmol/L Invalid Interpretation Code 3.5-5.3 [place] [facility] Sodium molar conc 139 mmol/L Invalid Interpretation Code 135-148 [place] [facility] Urea nitrogen mass conc 11.0 mg/dL Invalid Interpretation Code 7-25 [place] [facility] Urea nitrogen/Creatinine mass ratio 14 mg/mg Invalid Interpretation Code 6-20 [place] [facility] Otheron 10-29-2015 Albumin mass conc (U) 25.9 Invalid Interpretation Code 0.0-17.0 [place] [facility] Bilirubin Ql (U) Negative Negative [facility] Glucose Test strip mass conc (U) 4+ Invalid Interpretation Code Negative [place] [facility] Hemoglobin Ql (U) Negative Negative [facility] Nitrite Ql (U) Negative Negative [facility] pH (U) 5 [pH] Invalid Interpretation Code 4.5-7.8 [facility] Protein Ql (U) Negative Negative [facility] U[facility] Test strip mass conc (U) normal normal [facility] 315 [facility] 315.0 mg/dL Invalid Interpretation Code [facility] Urinalysison 10-29-2015 Albumin/Creatinine DL <= 20 mg/L mass ratio (U) 14.7 mg/g Invalid Interpretation Code 0.0-30.0 [facility] Clarity Nom (U) clear Invalid Interpretation Code Clear [facility] Color Nom (U) yellow Invalid Interpretation Code yellow [facility] Creatinine mass conc (U) 175.60 mg/dL Invalid Interpretation Code Not Estab. mg/dL [facility] Ketones Ql (U) 3+ Invalid Interpretation Code Negative [facility] Leukocyte esterase Test strip Ql (U) Negative Negative [facility] Specific gravity Relative Density (U) 1.020 Invalid Interpretation Code 1.003-1.029 [facility] - Chemistry and C hemistry - challengeon 10-03-2015 Bilirubin Ql (U) Negative Invalid Interpretation Code Negative [facility] Urobilinogen (U) [Mass/Vol] normal Invalid Interpretation Code normal [facility] - Hematology and Cell countson 10-03-2015 Hemoglobin Ql (U) Negative Invalid Interpretation Code Negative [facility] - Urinalysison Leukocyte esterase Test strip Ql (U) Negative Invalid Interpretation Code Negative [facility] Nitrite Ql (U) Negative Invalid Interpretation Code Negative [facility] Protein Ql (U) Negative Invalid Interpretation Code Negative [facility] Metabolic Panelon 10-03-2015 Anion gap molar conc 24 mmol/L Invalid Interpretation Code 10-20 [facility] Calcium mass conc 9.30 mg/dL Invalid Interpretation Code 8.5-10.8 [facility] Chloride molar conc 93 mmol/L Invalid Interpretation Code 100-112 [facility] CO2 molar conc 23 mmol/L Invalid Interpretation Code 23-30 [facility] Creatinine mass conc 0.90 mg/dL Invalid Interpretation Code 0.5-1.5 [facility] GFR/1.73 sq M predicted among non-blacks MDRD vol rate/area (S/P/Bld) 89 mL/min/{1.73_m2} Invalid Interpretation Code [facility] Glucose mass conc 491.0 mg/dL Invalid Interpretation Code 80-117 [facility] Potassium molar conc 4.0 mmol/L Invalid Interpretation Code 3.5-5.3 [facility] Sodium molar conc 136 mmol/L Invalid Interpretation Code 135-148 [facility] Urea nitrogen mass conc 13.0 mg/dL Invalid Interpretation Code 7-25 [facility] Urea nitrogen/Creatinine mass ratio 14 mg/mg Invalid Interpretation Code 6-20 [facility] Otheron 10-03-2015 Bilirubin Ql (U) Negative Negative [facility] C peptide mass conc 5.0 Invalid Interpretation Code 1.1-4.4 [place] [facility] Cortisol mass conc 4.0 ug/dL Invalid Interpretation Code 3.1-22.4 [place] [facility] Glucose Test strip mass conc (U) 4+ Invalid Interpretation Code Negative [place] [facility] Hemoglobin Ql (U) Negative Negative [facility] Nitrite Ql (U) Negative Negative [place] [facility] pH (U) 5 [pH] Invalid Interpretation Code 4.5-7.8 [place] [facility] Protein Ql (U) Negative Negative [place] [facility] Urobilinogen Test strip mass conc (U) normal normal [place] [facility] See Above Invalid Interpretation Code 0-0 [place] [facility] Urinalysison 10-03-2015 Clarity Nom (U) clear Invalid Interpretation Code Clear [place] [facility] Color Nom (U) yellow Invalid Interpretation Code yellow [place] [facility] Ketones Ql (U) 1+ Invalid Interpretation Code Negative [place] [facility] Leukocyte esterase Test strip Ql (U) Negative Negative [facility] Specific gravity Relative Density (U) 1.005 Invalid Interpretation Code 1.003-1.029 [place] [facility] Hematologyon 08-26-2015 Basophils #/vol (Bld) 0.10 10*3/uL Invalid Interpretation Code 0.0-0.1 [place] [facility] Basophils/100 WBC (Bld) 0.70 % Invalid Interpretation Code 0.0-1.0 [facility] Eosinophils #/vol (Bld) 0.30 10*3/uL Invalid Interpretation Code 0.0-0.5 [facility] Eosinophils/100 WBC (Bld) 3.10 % Invalid Interpretation Code 0.0-7.0 [facility] ESR Velocity (Bld) 31 mm/h Invalid Interpretation Code 0-15 [facility] Hematocrit Volume Fraction (Bld) 39.50 % Invalid Interpretation Code 37.8-51.0 [facility] Hemoglobin mass conc (Bld) 13.10 g/dL Invalid Interpretation Code 12.6-17.0 [facility] Lymphocytes #/vol (Bld) 2.10 10*3/uL Invalid Interpretation Code 0.9-3.1 [facility] Lymphocytes/100 WBC (Bld) 21.80 % Invalid Interpretation Code 15.0-46.0 [facility] MCH Entitic mass (RBC) 31.50 pg Invalid Interpretation Code 25.7-33.8 [facility] MCV Entitic volume (RBC) 94.60 fL Invalid Interpretation Code 82.0-98.4 [facility] Monocytes #/vol (Bld) 0.70 10*3/uL Invalid Interpretation Code 0.3-1.0 [facility] Monocytes/100 WBC (Bld) 7.20 % Invalid Interpretation Code 4.0-12.0 [facility] Neutrophils #/vol (Bld) 6.20 10*3/uL Invalid Interpretation Code 1.8-7.9 [facility] Neutrophils/100 WBC (Bld) 67.20 % Invalid Interpretation Code 43.0-76.0 [place] [facility] Platelets #/vol (Bld) 228.0 10*3/uL Invalid Interpretation Code 150-400 [place] [facility] RBC #/vol (Bld) 4.180 10*6/uL Invalid Interpretation Code 4.34-5.61 [place] [facility] WBC #/vol (Bld) 9.40 10*3/uL Invalid Interpretation Code 3.9-10.3 [place] [facility] Metabolic Panelon 08-26-2015 Protein mass conc g/dL CLASS 0 [facility] Otheron 08-26-2015 Erythrocyte distribution width Ratio (RBC) 12.20 % Invalid Interpretation Code 11.5-15.5 [place] [facility] Immune complex IgE Qn 14 Invalid Interpretation Code 0-100 [place] [facility] MCHC mass conc (RBC) 33.30 g/dL Invalid Interpretation Code 32.0-36.0 [place] [facility] Platelet mean volume Entitic volume (Bld) 8.50 fL Invalid Interpretation Code 7.4-10.4 [place] [facility] <0.10 Invalid Interpretation Code CLASS 0 [place] [facility] COMMENT Invalid Interpretation Code [place] [facility] Cardiacon 08-05-2015 Cholesterol in HDL mass conc 60.0 mg/dL Invalid Interpretation Code 36-100 [place] [facility] Cholesterol in LDL mass conc 58.0 mg/dL Invalid Interpretation Code 0-130 [place] [facility] Cholesterol mass conc 150.0 mg/dL Invalid Interpretation Code 0-200 [facility] Triglyceride mass conc 160.0 mg/dL Invalid Interpretation Code 30-150 [facility] Metabolic Panelon 08-05-2015 ALT enzyme act/vol 64.0 U/L Invalid Interpretation Code 0-50 [facility] Anion gap molar conc 18 mmol/L Invalid Interpretation Code 10-20 [facility] AST enzyme act/vol 39.0 U/L Invalid Interpretation Code 0-40 [facility] Calcium mass conc 9.70 mg/dL Invalid Interpretation Code 8.5-10.8 [facility] Chloride molar conc 92 mmol/L Invalid Interpretation Code 100-112 [facility] CO2 molar conc 26 mmol/L Invalid Interpretation Code 23-30 [facility] Creatinine mass conc 1.70 mg/dL Invalid Interpretation Code 0.5-1.5 [facility] GFR/1.73 sq M predicted among non-blacks MDRD vol rate/area (S/P/Bld) 43 mL/min/{1.73_m2} Invalid Interpretation Code [facility] Glucose mass conc 199.0 mg/dL Invalid Interpretation Code 80-117 [facility] Hemoglobin A1c/Hemoglobin.tota l mass fraction (Bld) 8.90 % Invalid Interpretation Code 4.3-6.3 [facility] Potassium molar conc 4.3 mmol/L Invalid Interpretation Code 3.5-5.3 [facility] Sodium molar conc 132 mmol/L Invalid Interpretation Code 135-148 [facility] Urea nitrogen mass conc 24.0 mg/dL Invalid Interpretation Code 7-25 [facility] Urea nitrogen/Creatinine mass ratio 14 mg/mg Invalid Interpretation Code 6-20 [facility] Otheron 08-05-2015 Albumin mass conc (U) < 12.0 Invalid Interpretation Code < 4.0-17.0 [facility] Cholesterol in VLDL mass conc 32.0 mg/dL Invalid Interpretation Code 0-39 [facility] Cholesterol.total/C holesterol in HDL mass ratio 3 {ratio} Invalid Interpretation Code [facility] 209 [facility] 209.0 mg/dL Invalid Interpretation Code [facility] 64.0 U/L 0-50 [facility] Urinalysison 08-05-2015 Creatinine mass conc (U) 186.0 mg/dL Invalid Interpretation Code Not Estab. mg/dL [facility] Vital Signs Date Time Vital Sign Value Performing Clinician Facility 07-27-2022 16:23-0500 Body height 180.34 cm Edilberto [facility] 07-27-2022 16:23-0500 Body mass index (BMI) [Ratio] 33.33 kg/m2 [facility] 07-27-2022 16:23-0500 Body surface area Derived from formula 2.33 m2 [facility] 07-27-2022 16:23-0500 Body weight 108.41 kg [facility] 07-27-2022 16:23-0500 Body weight 0.1 {percentile} Edilberto [facility] 07-27-2022 16:23-0500 Diastolic blood pressure 68 mm[Hg] Edilberto Zamora [facility] 07-27-2022 16:23-0500 Heart rate 100 /min Edilberto Zamora [facility] 07-27-2022 16:23-0500 Systolic blood pressure 110 mm[Hg] Edilberto Zamora [facility] 05-27-2022 14:45-0500 Body height 182.88 cm [facility] 05-27-2022 14:45-0500 Body mass index (BMI) [Ratio] 24.4 kg/m2 [facility] 05-27-2022 14:45-0500 Body weight 81.64 kg [facility] 05-27-2022 14:39-0500 Body temperature 97.7 [degF] [facility] 05-27-2022 14:39-0500 Diastolic blood pressure 78 mm[Hg] [facility] 05-27-2022 14:39-0500 Heart rate 90 /min [facility] 05-27-2022 14:39-0500 Respiratory rate 20 /min [facility] 05-27-2022 14:39-0500 Systolic blood pressure 153 mm[Hg] [facility] 05-05-2022 14:50-0400 Body height 182.88 cm [facility] 05-05-2022 14:50-0400 Body mass index (BMI) [Ratio] 24.4 kg/m2 [facility] 05-05-2022 14:50-0400 Body weight 81.64 kg [facility] 05-05-2022 14:36-0400 Body temperature 97.9 [degF] [facility] 05-05-2022 14:36-0400 Diastolic blood pressure 82 mm[Hg] [facility] 05-05-2022 14:36-0400 Heart rate 106 /min [facility] 05-05-2022 14:36-0400 Respiratory rate 18 /min [facility] 05-05-2022 14:36-0400 Systolic blood pressure 153 mm[Hg] [facility] 04-14-2022 14:46-0400 Body height 182.88 cm [facility] 04-14-2022 14:46-0400 Body mass index (BMI) [Ratio] 24.4 kg/m2 [facility] 04-14-2022 14:46-0400 Body weight 81.64 kg [facility] 04-14-2022 14:14-0400 Body temperature 98.6 [degF] [facility] 04-14-2022 14:14-0400 Diastolic blood pressure 98 mm[Hg] [facility] 04-14-2022 14:14-0400 Heart rate 112 /min [facility] 04-14-2022 14:14-0400 Respiratory rate 18 /min [facility] 04-14-2022 14:14-0400 Systolic blood pressure 168 mm[Hg] [facility] 04-01-2022 18:08-0400 Body height 182.88 cm [facility] 04-01-2022 18:08-0400 Body temperature 98.5 [degF] [facility] 04-01-2022 18:08-0400 Body weight 108.6 kg [facility] 04-01-2022 18:08-0400 Diastolic blood pressure 89 mm[Hg] [facility] 04-01-2022 18:08-0400 Heart rate 112 /min [facility] 04-01-2022 18:08-0400 Respiratory rate 20 /min [facility] 04-01-2022 18:08-0400 SaO2% (BldA) [Mass fraction] 97 % [facility] 04-01-2022 18:08-0400 Systolic blood pressure 143 mm[Hg] [facility] 02-17-2022 15:25-0400 Body height 180.34 cm Franky [facility] [employer] 02-17-2022 15:25-0400 Body mass index (BMI) [Ratio] 33.75 kg/m2 Franky [employer] [facility] 02-17-2022 15:25-0400 Body surface area Derived from formula 2.35 m2 [employer] [facility] 02-17-2022 15:25-0400 Body surface area Derived from formula 2.34 m2 [employer] [facility] 02-17-2022 15:25-0400 Body weight 109.77 kg Franky [employer] 02-17-2022 15:25-0400 Diastolic blood pressure 72 mm[Hg] [employer] [facility] 02-17-2022 15:25-0400 Heart rate 84 /min [employer] [facility] 02-17-2022 15:25-0400 Systolic blood pressure 126 mm[Hg] [employer] [facility] 02-17-2022 14:30-0400 Body height 180.34 cm [employer] 02-17-2022 14:30-0400 Body mass index (BMI) [Ratio] 33.75 kg/m2 Ericka [employer] [facility] 02-17-2022 14:30-0400 Body surface area Derived from formula 2.35 m2 [employer] [facility] 02-17-2022 14:30-0400 Body surface area Derived from formula 2.34 m2 [employer] 02-17-2022 14:30-0400 Body weight 109.77 kg [employer] 02-17-2022 14:30-0400 Diastolic blood pressure 76 mm[Hg] Ericka Muniz [employer] [facility] 02-17-2022 14:30-0400 Heart rate 88 /min Ericka Muniz [facility] [facility] 02-17-2022 14:30-0400 Systolic blood pressure 124 mm[Hg] Ericka Muniz [facility] 01-15-2022 13:42-0400 Body height 180.34 cm Edilberto [employer] [facility] 01-15-2022 13:42-0400 Body mass index (BMI) [Ratio] 33.47 kg/m2 Edilberto [facility] 01-15-2022 13:42-0400 Body surface area Derived from formula 2.34 m2 Edilberto [facility] 01-15-2022 13:42-0400 Body weight 108.86 kg Edilberto [facility] 01-15-2022 13:42-0400 Diastolic blood pressure 82 mm[Hg] Edilberto [facility] 01-15-2022 13:42-0400 Heart rate 84 /min Edilberto [facility] 01-15-2022 13:42-0400 Systolic blood pressure 132 mm[Hg] Ed[facility]berto [facility] 10-20-2021 16:47-0400 Body height 180.34 cm Franky [employer] 10-20-2021 16:47-0400 Body mass index (BMI) [Ratio] 34.03 kg/m2 [employer]y [employer] 10-20-2021 16:47-0400 Body surface area Derived from formula 2.35 m2 Franky [employer] 10-20-2021 16:47-0400 Body weight 110.68 kg Franky Turpin [facility] 10-20-2021 16:47-0400 Diastolic blood pressure 78 mm[Hg] Franky [employer]Monro[employer] 10-20-2021 16:47-0400 Heart rate 88 /min Franky Turpin [facility] 10-20-2021 16:47-0400 Systolic blood pressure 122 mm[Hg] Franky [employer]Mon[employer] 09-17-2021 16:22-0500 Body height 180.34 cm Franky [employer] 09-17-2021 16:22-0500 Body mass index (BMI) [Ratio] 34.17 kg/m2 Franky [employer]Monro[employer] 09-17-2021 16:22-0500 Body surface area Derived from formula 2.36 m2 Franky [employer] 09-17-2021 16:22-0500 Body weight 111.13 kg Franky Turpin [facility] 09-17-2021 16:22-0500 Diastolic blood pressure 78 mm[Hg] [employer] 09-17-2021 16:22-0500 Heart rate 84 /min Franky [employer] 09-17-2021 16:22-0500 Systolic blood pressure 142 mm[Hg] Franky [employer] 09-03-2021 14:40-0500 Body height 180.34 cm Edilberto [employer] 09-03-2021 14:40-0500 Body mass index (BMI) [Ratio] 35.15 kg/m2 Edilberto [facility] 09-03-2021 14:40-0500 Body surface area Derived from formula 2.39 m2 Edilberto [facility] 09-03-2021 14:40-0500 Body weight 114.31 kg Edilberto [facility] 09-03-2021 14:40-0500 Diastolic blood pressure 74 mm[Hg] Edilberto [facility] 09-03-2021 14:40-0500 Heart rate 84 /min Edilberto [facility] 09-03-2021 14:40-0500 Systolic blood pressure 136 mm[Hg] Edilberto [facility] 03-19-2021 14:33-0400 Body height 181.61 cm Edilberto [facility] 03-19-2021 14:33-0400 Body mass index (BMI) [Ratio] 33.49 kg/m2 Edilberto [facility] 03-19-2021 14:33-0400 Body surface area Derived from formula 2.36 m2 Edilberto [facility] 03-19-2021 14:33-0400 Body weight 110.45 kg Edilberto [facility] 03-19-2021 14:33-0400 Diastolic blood pressure 80 mm[Hg] Edilberto [facility] 03-19-2021 14:33-0400 Heart rate 88 /min Edilberto Zamora [facility] 03-19-2021 14:33-0400 Systolic blood pressure 126 mm[Hg] dEilberto Zamora [employer] [facility] 12-23-2020 13:35-0400 Body height 181.61 cm Ericka Muniz [facility] 12-23-2020 13:35-0400 Body mass index (BMI) [Ratio] 33.01 kg/m2 Ericka Muniz [facility] 12-23-2020 13:35-0400 Body surface area Derived from formula 2.34 m2 Ericka [employer] 12-23-2020 13:35-0400 Body weight 108.86 kg Ericka [employer] 12-23-2020 13:35-0400 Diastolic blood pressure 86 mm[Hg] Ericka [employer] 12-23-2020 13:35-0400 Heart rate 83 /min Ericka Muniz [facility] 12-23-2020 13:35-0400 Systolic blood pressure 126 mm[Hg] Ericka [employer] 09-09-2020 15:15-0500 BMI (Body Mass Index) 33.56 kg/m2 Edilberto [employer] 09-09-2020 15:15-0500 Body weight 110.68 kg Edilberto [facility] 09-09-2020 15:15-0500 BP Diastolic 74 mm[Hg] Edilberto [facility] 09-09-2020 15:15-0500 BP Systolic 130 mm[Hg] Edilberto [facility] 09-09-2020 15:15-0500 BSA (Body Surface Area) 2.36 m2 Edilberto [facility] 09-09-2020 15:15-0500 Height 181.61 cm Edilberto Zamora [facility] 09-09-2020 15:15-0500 Pulse (Heart Rate) 104 /min Edilberto SilveiraKaznachey 04-08-2020 17:01-0400 BMI (Body Mass Index) 33.46 kg/m2 Edilberto [facility] 04-08-2020 17:01-0400 Body weight 110.37 kg Edilberto [facility] 04-08-2020 17:01-0400 BP Diastolic 78 mm[Hg] Edilberto [employer] 04-08-2020 17:01-0400 BP Systolic 120 mm[Hg] Edilberto [employer] 04-08-2020 17:01-0400 BSA (Body Surface Area) 2.36 m2 Edilberto [facility] 04-08-2020 17:01-0400 Height 181.61 cm Edilberto [facility] 04-08-2020 17:01-0400 Pulse (Heart Rate) 78 /min Edilberto SilveiraKaznachey 02-21-2020 17:34-0400 BMI (Body Mass Index) 33.83 kg/m2 Ericka Muniz [facility] 02-21-2020 17:34-0400 Body Temperature 97.8 [degF] [facility] [employer] 02-21-2020 17:34-0400 Body weight 111.59 kg Ericka SilveiramyAchy 02-21-2020 17:34-0400 BP Diastolic 70 mm[Hg] Ericka Silveirahard [facility] 02-21-2020 17:34-0400 BP Systolic 132 mm[Hg] Ericka Muniz [place] [facility] 02-21-2020 17:34-0400 BSA (Body Surface Area) 2.37 m2 Ericka [employer] 02-21-2020 17:34-0400 Height 181.61 cm Ericka [employer] 02-21-2020 17:34-0400 Pulse (Heart Rate) 88 /min Ericka [place] [facility] [employer] 12-28-2019 14:30-0400 Body Temperature 98.6 [degF] [facility] [place] 12-28-2019 14:30-0400 BP Diastolic 88 mm[Hg] [facility] , [place] 12-28-2019 14:30-0400 BP Systolic 135 mm[Hg] [facility] , [place] 12-28-2019 14:30-0400 Pulse (Heart Rate) 80 /min [facility] 12-28-2019 14:30-0400 Pulse Oximetry 93 % [facility] , [place] 12-28-2019 14:30-0400 Respiratory Rate 18 /min [facility], [place] 12-28-2019 08:19-0400 BMI (Body Mass Index) 33.63 kg/m2 [facility] 12-28-2019 08:19-0400 Body weight 112.49 kg [facility] , [place] 12-28-2019 08:19-0400 Height 182.9 cm [facility] [place] 11-26-2019 17:01-0400 BMI (Body Mass Index) 34.24 kg/m2 Ericka [facility] 11-26-2019 17:01-0400 Body Temperature 98.5 [degF] Ericka Maldonado [employer] [facility] 11-26-2019 17:01-0400 Body weight 112.95 kg Ericka [facility] 11-26-2019 17:01-0400 BP Diastolic 72 mm[Hg] Ericka Muniz [facility] 11-26-2019 17:01-0400 BP Systolic 116 mm[Hg] Ericka Muniz [place] [employer] [facility] 11-26-2019 17:01-0400 BSA (Body Surface Area) 2.39 m2 Ericka Muniz [facility] 11-26-2019 17:01-0400 Height 181.61 cm Ericka Muniz [facility] 11-26-2019 17:01-0400 Pulse (Heart Rate) 100 /min Ericka Silveirahard Francisco carb[employer] [facility] 08-28-2019 15:09-0500 BMI (Body Mass Index) 33.83 kg/m2 Edilberto JaraRewardMeMonroe [employer] [facility] 08-28-2019 15:09-0500 Body weight 111.59 kg Edilberto [facility] 08-28-2019 15:09-0500 BP Diastolic 80 mm[Hg] Edilberto [employer] [facility] 08-28-2019 15:09-0500 BP Systolic 126 mm[Hg] Edilberto [employer] [facility] 08-28-2019 15:09-0500 BSA (Body Surface Area) 2.37 m2 Edilberto [employer] [facility] 08-28-2019 15:09-0500 Height 181.61 cm Edilberto Zamora [facility] 08-28-2019 15:09-0500 Pulse (Heart Rate) 80 /min Edilberto [place] [employer] 05-28-2019 18:11-0500 BMI (Body Mass Index) 33.51 kg/m2 Ericka Muniz [facility] 05-28-2019 18:11-0500 Body weight 111.13 kg Ericka Muniz [facility] 05-28-2019 18:11-0500 BP Diastolic 74 mm[Hg] Ericka Muniz [facility] 05-28-2019 18:11-0500 BP Systolic 124 mm[Hg] Ericka Muniz [facility] 05-28-2019 18:11-0500 BSA (Body Surface Area) 2.37 m2 Ericka [employer] 05-28-2019 18:11-0500 Height 182.12 cm Ericka Muniz [facility] 05-28-2019 18:11-0500 Pulse (Heart Rate) 80 /min Ericka SilveiraKaznachey 04-17-2019 17:27-0400 BMI (Body Mass Index) 33.96 kg/m2 Edilberto [facility] 04-17-2019 17:27-0400 Body weight 112.95 kg Edilberto [facility] 04-17-2019 17:27-0400 BP Diastolic 86 mm[Hg] Edilberto [facility] 04-17-2019 17:27-0400 BP Systolic 122 mm[Hg] Edilberto [facility] 04-17-2019 17:27-0400 BSA (Body Surface Area) 2.39 m2 Edilberto Zamora [facility] 04-17-2019 17:0400 Height 182.37 cm Edilberto Zamora [facility] 04-17-2019 17:27-0400 Pulse (Heart Rate) 102 /min Edilberto SilveiraKaznachey 01-25-2019 13:01-0400 BMI (Body Mass Index) 34.3 kg/m2 Ericka [employer] 01-25-2019 13:01-0400 Body weight 114.08 kg Ericka Muniz [facility] 01-25-2019 13:01-0400 BP Diastolic 92 mm[Hg] Ericka [employer] 01-25-2019 13:01-0400 BP Systolic 142 mm[Hg] Ericka [employer] 01-25-2019 13:01-0400 BSA (Body Surface Area) 2.4 m2 Ericka [employer] 01-25-2019 13:01-0400 Height 182.37 cm Ericka [employer] 01-25-2019 13:01-0400 Pulse (Heart Rate) 88 /min Ericka [employer] 12-12-2018 13:49-0400 BMI (Body Mass Index) 34.5 kg/m2 Edilberto [facility] 12-12-2018 13:49-0400 Body weight 114.76 kg Ericka Muniz [facility] 12-12-2018 13:49-0400 BP Diastolic 88 mm[Hg] Edilberto [facility] 12-12-2018 13:49-0400 BP Systolic 148 mm[Hg] Edilberto SilveiramyAchy 12-12-2018 13:49-0400 BSA (Body Surface Area) 2.41 m2 Edilberto Zamora [employer] 12-12-2018 13:49-0400 Height 182.37 cm Edilberto Zamora [facility] 12-12-2018 13:49-0400 Pulse (Heart Rate) 90 /min Edilberto Jaraeder MonroeKaznachey 12-12-2018 13:49-0400 Weight 114.76 kg Edilberto Zamora [facility] 10-02-2018 13:45-0400 BMI (Body Mass Index) 34.38 kg/m2 Edilberto Zamora [facility] 10-02-2018 13:45-0400 Body weight 113.4 kg Ericka SilveiramyAchy 10-02-2018 13:45-0400 BP Diastolic 90 mm[Hg] Edilberto Zamora [facility] 10-02-2018 13:45-0400 BP Systolic 164 mm[Hg] Edilberto Zamora [facility] 10-02-2018 13:45-0400 BSA (Body Surface Area) 2.39 m2 Edilberto [facility] 10-02-2018 13:45-0400 Height 181.61 cm Edilberto Zamora [facility] 10-02-2018 13:45-0400 Pulse (Heart Rate) 90 /min Edilberto SilveiraKaznachey 10-02-2018 13:45-0400 Weight 113.4 kg Edilberto Zamora [facility] 08-30-2018 13:14-0500 BMI (Body Mass Index) 33.74 kg/m2 Edilberto Zamora [facility] 08-30-2018 13:14-0500 Body weight 111.27 kg Ericka Muniz [facility] 08-30-2018 13:14-0500 BP Diastolic 88 mm[Hg] Edilberto [facility] 08-30-2018 13:14-0500 BP Systolic 142 mm[Hg] Edilberto [facility] 08-30-2018 13:14-0500 BSA (Body Surface Area) 2.37 m2 Edilberto [facility] 08-30-2018 13:14-0500 Height 181.61 cm Edilberto [facility] 08-30-2018 13:14-0500 Pulse (Heart Rate) 84 /min Edilberto Zamora [employer] 08-30-2018 13:14-0500 Weight 111.27 kg Edilberto [facility] 06-19-2018 13:18-0500 Body weight 112.04 kg Ericka Muniz [facility] 06-19-2018 13:18-0500 BP Diastolic 80 mm[Hg] Edilberto [facility] 06-19-2018 13:18-0500 BP Systolic 138 mm[Hg] Edilberto [facility] 06-19-2018 13:18-0500 Pulse (Heart Rate) 70 /min Edilberto Chiasma 06-19-2018 13:18-0500 Weight 112.04 kg Edilberto [employer] 03-20-2018 14:25-0400 BMI (Body Mass Index) 32.28 kg/m2 Edilberto JaraBadSeed 03-20-2018 14:25-0400 Body weight 107.96 kg Ericka Muniz [facility] 03-20-2018 14:25-0400 BP Diastolic 80 mm[Hg] Edilberto [facility] 03-20-2018 14:25-0400 BP Systolic 142 mm[Hg] Edilberto [facility] 03-20-2018 14:25-0400 BSA (Body Surface Area) 2.34 m2 Edilberto [facility] 03-20-2018 14:25-0400 Height 182.88 cm Edilberto [facility] 03-20-2018 14:25-0400 Pulse (Heart Rate) 78 /min Edilberto [employer] Francisco velasquez [employer] 03-20-2018 14:25-0400 Weight 107.96 kg Edilberto [facility] 03-01-2018 13:34-0400 BMI (Body Mass Index) 32.55 kg/m2 Edilberto [facility] 03-01-2018 13:34-0400 Body weight 108.86 kg Ericka Muniz [facility] 03-01-2018 13:34-0400 BP Diastolic 104 mm[Hg] Edilberto [facility] 03-01-2018 13:34-0400 BP Systolic 138 mm[Hg] Edilberto [facility] 03-01-2018 13:34-0400 BSA (Body Surface Area) 2.35 m2 Edilberto SilveiramyAchy 03-01-2018 13:34-0400 Height 182.88 cm Edilberto SilveiramyAchy 03-01-2018 13:34-0400 Pulse (Heart Rate) 104 /min Edilberto Tijerina [employer] 03-01-2018 13:34-0400 Weight 108.86 kg Edilberto SilveiramyAchy 12-13-2017 13:50-0400 BMI (Body Mass Index) 33.36 kg/m2 Edilberto Zamora [employer] 12-13-2017 13:50-0400 Body weight 111.59 kg Ericka SilveiramyAchy 12-13-2017 13:50-0400 BP Diastolic 78 mm[Hg] Edilberto Zamora [facility] [employer] [facility] 12-13-2017 13:50-0400 BP Systolic 144 mm[Hg] Edilberto Zamora [facility] [employer] [facility] 12-13-2017 13:50-0400 BSA (Body Surface Area) 2.38 m2 Edilberto Zamora [facility] [employer] [facility] 12-13-2017 13:50-0400 Height 182.88 cm Edilberto Zamora [facility] [employer] [facility] 12-13-2017 13:50-0400 Pulse (Heart Rate) 76 /min Edilberto Silveirahard Francisco [employer] 12-13-2017 13:50-0400 Weight 111.59 kg Edilberto Zamora [facility] [employer] [facility] 09-01-2017 13:48-0500 BMI (Body Mass Index) 33.09 kg/m2 Edilberto FND 09-01-2017 13:48-0500 Body weight 110.68 kg Ericka SilveiraAttention Point Inc 09-01-2017 13:48-0500 BP Diastolic 92 mm[Hg] Edilberto Zamora [employer] 09-01-2017 13:48-0500 BP Systolic 128 mm[Hg] Edilberto Zamora [employer] 09-01-2017 13:48-0500 BSA (Body Surface Area) 2.37 m2 Edilberto FND 09-01-2017 13:48-0500 Height 182.88 cm Edilberto FND 09-01-2017 13:48-0500 Pulse (Heart Rate) 80 /min Edilberto Zamora [facility] [place] [facility] [employer] 09-01-2017 13:48-0500 Weight 110.68 kg Edilberto J[employer]Seed 08-05-2017 13:30-0500 BMI (Body Mass Index) 33.63 kg/m2 Edilberto Zamora [employer] 08-05-2017 13:30-0500 Body weight 112.49 kg Ericka Muniz [facility] [employer] [facility] 08-05-2017 13:30-0500 BP Diastolic 80 mm[Hg] Edilberto JaraYovia Inc 08-05-2017 13:30-0500 BP Systolic 140 mm[Hg] Edilberto FND 08-05-2017 13:30-0500 BSA (Body Surface Area) 2.39 m2 Edilberto FND 08-05-2017 13:30-0500 Height 182.88 cm Edilberto FND 08-05-2017 13:30-0500 Pulse (Heart Rate) 84 /min Edilberto SilveiraKaznachey 08-05-2017 13:30-0500 Weight 112.49 kg Edilberto FND 06-27-2017 17:18-0500 BMI (Body Mass Index) 33.63 kg/m2 Edilberto FND 06-27-2017 17:18-0500 Body weight 112.49 kg Ericka Muniz [facility] [employer] [facility] 06-27-2017 17:18-0500 BP Diastolic 90 mm[Hg] Edilberto FND 06-27-2017 17:18-0500 BP Systolic 140 mm[Hg] Edilberto FND 06-27-2017 17:18-0500 BSA (Body Surface Area) 2.39 m2 Edilberto FND 06-27-2017 17:18-0500 Height 182.88 cm Edilberto FND 06-27-2017 17:18-0500 Pulse (Heart Rate) 80 /min Edilberto SilveiraKaznachey 06-27-2017 17:18-0500 Weight 112.49 kg Edilberto FND 04-05-2017 13:30-0400 Body weight 106.6 kg Ericka Muniz [facility] [employer] 04-05-2017 13:30-0400 BP Diastolic 80 mm[Hg] [employer]ilberto[employer]ista 04-05-2017 13:30-0400 BP Systolic 118 mm[Hg] Edilberto JaraBadSeed 04-05-2017 13:30-0400 Pulse (Heart Rate) 70 /min Edilberto SilveiraKaznachey 04-05-2017 13:30-0400 Weight 106.6 kg Edilberto FND 03-01-2017 12:25-0400 BMI (Body Mass Index) 32.01 kg/m2 Edilberto FND 03-01-2017 12:25-0400 Body weight 107.05 kg Ericka Muniz [facility] [employer] 03-01-2017 12:25-0400 BP Diastolic 80 mm[Hg] Edilberto FND 03-01-2017 12:25-0400 BP Systolic 116 mm[Hg] Edilberto FND 03-01-2017 12:25-0400 BSA (Body Surface Area) 2.33 m2 Edilberto FND 03-01-2017 12:25-0400 Height 182.88 cm Edilberto FND 03-01-2017 12:25-0400 Pulse (Heart Rate) 84 /min Edilberto SilveiraKaznachey 03-01-2017 12:25-0400 Weight 107.05 kg Edilberto FND 02-09-2017 13:42-0400 BMI (Body Mass Index) 32.01 kg/m2 Edilberto FND 02-09-2017 13:42-0400 Body weight 107.05 kg Ericka Muniz [facility] [employer] [facility] 02-09-2017 13:42-0400 BP Diastolic 80 mm[Hg] Edilberto Monroe [employer] 02-09-2017 13:42-0400 BP Systolic 130 mm[Hg] Edilberto SilveiraAttention Point Inc 02-09-2017 13:42-0400 BSA (Body Surface Area) 2.33 m2 Edilberto SilveiraAttention Point Inc 02-09-2017 13:42-0400 Height 182.88 cm Edilberto Zamora [employer] 02-09-2017 13:42-0400 Pulse (Heart Rate) 80 /min Edilberto Tijerina velasquez [employer] 02-09-2017 13:42-0400 Weight 107.05 kg Edilberto Zamora [employer] 11-30-2016 13:21-0400 BMI (Body Mass Index) 32.35 kg/m2 Edilberto SilveiramyAchy 11-30-2016 13:21-0400 Body weight 108.18 kg Ericka SilveiramyAchy 11-30-2016 13:21-0400 BP Diastolic 76 mm[Hg] Edilberto Zamora [employer] 11-30-2016 13:21-0400 BP Systolic 128 mm[Hg] Edilberto SilveiraAttention Point Inc 11-30-2016 13:21-0400 BSA (Body Surface Area) 2.34 m2 Edilberto Zamora [employer] 11-30-2016 13:21-0400 Height 182.88 cm Edilbetro Zamora [facility] [employer] [facility] 11-30-2016 13:21-0400 Pulse (Heart Rate) 84 /min Edilberto SilveiraKaznachey 11-30-2016 13:21-0400 Weight 108.18 kg Edilberto J[employer]Seed 09-28-2016 11:37-0400 BMI (Body Mass Index) 32.75 kg/m2 Edilberto FND 09-28-2016 11:37-0400 Body weight 109.54 kg Ericka Muniz [facility] 09-28-2016 11:37-0400 BP Diastolic 92 mm[Hg] Edilberto FND 09-28-2016 11:37-0400 BP Systolic 142 mm[Hg] Edilberto FND 09-28-2016 11:37-0400 BSA (Body Surface Area) 2.36 m2 Edilberto FND 09-28-2016 11:37-0400 Height 182.88 cm Edilberto FND 09-28-2016 11:37-0400 Pulse (Heart Rate) 100 /min Edilberto [employer] 09-28-2016 11:37-0400 Weight 109.54 kg Edilbetro FND 08-03-2016 13:51-0500 BMI (Body Mass Index) 32.96 kg/m2 Edilberto FND 08-03-2016 13:51-0500 Body weight 110.22 kg Ericka Muniz [facility] 08-03-2016 13:51-0500 BP Diastolic 96 mm[Hg] Edilberto FND 08-03-2016 13:51-0500 BP Systolic 152 mm[Hg] Edilberto SilveiramyAchy 08-03-2016 13:51-0500 BSA (Body Surface Area) 2.37 m2 Edilberto SilveiramyAchy 08-03-2016 13:51-0500 Height 182.88 cm Edilberto SilveiramyAchy 08-03-2016 13:51-0500 Pulse (Heart Rate) 108 /min Edilberto SilveiraKaznachey 08-03-2016 13:51-0500 Weight 110.22 kg Edilberto Zamora [employer] 03-31-2016 11:23-0400 BMI (Body Mass Index) 32.64 kg/m2 Edilberto Zamora [employer] 03-31-2016 11:23-0400 Body weight 106.14 kg Ericka SilveiramyAchy 03-31-2016 11:23-0400 BP Diastolic 76 mm[Hg] Edilberto Zamora [employer] 03-31-2016 11:23-0400 BP Systolic 124 mm[Hg] Edilberto Zamora [facility] [employer] [facility] 03-31-2016 11:23-0400 BSA (Body Surface Area) 2.31 m2 Edilberto Zamora [facility] [employer] [facility] 03-31-2016 11:23-0400 Height 180.34 cm Edilberto Zamora [facility] [employer] 03-31-2016 11:23-0400 Pulse (Heart Rate) 80 /min Edilberto SilveiraKaznachey 03-31-2016 11:23-0400 Weight 106.14 kg Edilberto Zamora [facility] [employer] [facility] 03-30-2016 13:44-0400 BMI (Body Mass Index) 32.85 kg/m2 Edilberto J[employer]Se[employer] 03-30-2016 13:44-0400 Body weight 106.82 kg Ericka Muniz [facility] [employer] [facility] 03-30-2016 13:44-0400 BP Diastolic 70 mm[Hg] Edilberto FND 03-30-2016 13:44-0400 BP Systolic 136 mm[Hg] Edilberto FND 03-30-2016 13:44-0400 BSA (Body Surface Area) 2.31 m2 Edilberto FND 03-30-2016 13:44-0400 Height 180.34 cm Edilberto FND 03-30-2016 13:44-0400 Pulse (Heart Rate) 96 /min Edilberto Lecturio velasquez [employer] 03-30-2016 13:44-0400 Weight 106.82 kg Edilberto FND 02-23-2016 14:54-0400 BMI (Body Mass Index) 32.71 kg/m2 Edilberto FND 02-23-2016 14:54-0400 Body weight 106.37 kg Ericka Muniz [facility] [employer] [facility] 02-23-2016 14:54-0400 BP Diastolic 90 mm[Hg] Edilberto FND 02-23-2016 14:54-0400 BP Systolic 132 mm[Hg] Edilberto FND 02-23-2016 14:54-0400 BSA (Body Surface Area) 2.31 m2 Edilberto Zamora [facility] [employer] 02-23-2016 14:54-0400 Height 180.34 cm Edilberto SilveiramyAchy 02-23-2016 14:54-0400 Pulse (Heart Rate) 88 /min Edilberto SilveiraKaznachey 02-23-2016 14:54-0400 Weight 106.37 kg Edilberto Zamora [facility] [employer] [facility] 12-23-2015 13:34-0400 BMI (Body Mass Index) 33.89 kg/m2 Edilberto Zamora [facility] [employer] 12-23-2015 13:34-0400 Body weight 110.22 kg Ericka SilveiramyAchy 12-23-2015 13:34-0400 BP Diastolic 76 mm[Hg] Edilberto Zamora [facility] [employer] 12-23-2015 13:34-0400 BP Systolic 110 mm[Hg] Edilberto Zamora [facility] [employer] 12-23-2015 13:34-0400 BSA (Body Surface Area) 2.35 m2 Edilberto FND 12-23-2015 13:34-0400 Height 180.34 cm Edilberto Zamora [facility] [employer] [facility] 12-23-2015 13:34-0400 Pulse (Heart Rate) 100 /min Edilberto SilveiraKaznachey 12-23-2015 13:34-0400 Weight 110.22 kg Edilberto [employer] 12-09-2015 13:00-0400 BMI (Body Mass Index) 33.47 kg/m2 Edilberto FND 12-09-2015 13:00-0400 Body weight 108.86 kg Ericka Muniz [facility] 12-09-2015 13:00-0400 BP Diastolic 74 mm[Hg] Edilberto Zamora [facility] [employer] [facility] 12-09-2015 13:00-0400 BP Systolic 114 mm[Hg] Edilberto J[employer]Se[employer] 12-09-2015 13:00-0400 BSA (Body Surface Area) 2.34 m2 Edilberto FND 12-09-2015 13:000400 Height 180.34 cm Edilberto FND 12-09-2015 13:00-0400 Pulse (Heart Rate) 100 /min Edilberto Eggs [facility] [place] [facility] [employer] 12-09-2015 13:00-0400 Weight 108.86 kg Edilberto FND 12-03-2015 12:29-0400 BMI (Body Mass Index) 34.31 kg/m2 Edilberto FND 12-03-2015 12:29-0400 Body weight 111.59 kg Ericka Muniz [facility] [employer] 12-03-2015 12:29-0400 BP Diastolic 66 mm[Hg] Edilberto FND 12-03-2015 12:29-0400 BP Systolic 114 mm[Hg] Edilberto FND 12-03-2015 12:29-0400 BSA (Body Surface Area) 2.36 m2 Edilberto FND 12-03-2015 12:29-0400 Height 180.34 cm Edilberto FND 12-03-2015 12:29-0400 Pulse (Heart Rate) 100 /min Edilberto Tijerina [employer] 12-03-2015 12:29-0400 Weight 111.59 kg Edilberto Zamora [facility] [employer] [facility] 11-18-2015 13:52-0400 BMI (Body Mass Index) 34.07 kg/m2 Edilberto [employer] 11-18-2015 13:52-0400 Body weight 110.82 kg Ericka Muniz [facility] [employer] [facility] 11-18-2015 13:52-0400 BP Diastolic 82 mm[Hg] Edilberto [employer] 11-18-2015 13:52-0400 BP Systolic 124 mm[Hg] Edilberto [employer] 11-18-2015 13:52-0400 BSA (Body Surface Area) 2.36 m2 Edilberto FND 11-18-2015 13:52-0400 Height 180.34 cm Edilberto [employer] 11-18-2015 13:52-0400 Pulse (Heart Rate) 100 /min Edilberto Tijerina [employer] 11-18-2015 13:52-0400 Weight 110.82 kg Edilberto FND 11-05-2015 14:53-0400 BMI (Body Mass Index) 34.31 kg/m2 Edilberto FND 11-05-2015 14:53-0400 Body weight 111.59 kg Ericka Muniz [facility] [employer] [facility] 11-05-2015 14:53-0400 BP Diastolic 70 mm[Hg] Edilberto SilveiramyAchy 11-05-2015 14:53-0400 BP Systolic 140 mm[Hg] Edilberto SilveiramyAchy 11-05-2015 14:53-0400 BSA (Body Surface Area) 2.36 m2 Edilberto Zamora [employer] 11-05-2015 14:53-0400 Height 180.34 cm Edilberto Zamora [facility] [employer] 11-05-2015 14:53-0400 Pulse (Heart Rate) 120 /min Edilberto SilveiraKaznachey 11-05-2015 14:53-0400 Weight 111.59 kg Edilberto Zamora [facility] [employer] 10-13-2015 13:24-0400 BMI (Body Mass Index) 34.38 kg/m2 Edilberto Zamora [employer] 10-13-2015 13:24-0400 Body weight 111.81 kg Ericka SilveiramyAchy 10-13-2015 13:24-0400 BP Diastolic 84 mm[Hg] Edilberto Zamora [employer] 10-13-2015 13:24-0400 BP Systolic 144 mm[Hg] Edilberto Zamora [employer] 10-13-2015 13:24-0400 BSA (Body Surface Area) 2.37 m2 Edilberto FND 10-13-2015 13:24-0400 Height 180.34 cm Edilberto Zamora [facility] [employer] 10-13-2015 13:24-0400 Pulse (Heart Rate) 108 /min Edilberto [employer] 10-13-2015 13:24-0400 Weight 111.81 kg Edilberto J[employer]Seed 10-03-2015 11:47-0400 BMI (Body Mass Index) 34.38 kg/m2 Edilberto [employer] 10-03-2015 11:47-0400 Body weight 111.81 kg Ericka Muniz [facility] [employer] 10-03-2015 11:47-0400 BP Diastolic 80 mm[Hg] Edilberto FND 10-03-2015 11:47-0400 BP Systolic 106 mm[Hg] Edilberto FND 10-03-2015 11:47-0400 BSA (Body Surface Area) 2.37 m2 Edilberto FND 10-03-2015 11:47-0400 Height 180.34 cm Edilberto FND 10-03-2015 11:47-0400 Pulse (Heart Rate) 116 /min Edilberto Chiasma 10-03-2015 11:47-0400 Weight 111.81 kg Edilberto FND 09-29-2015 12:48-0400 BMI (Body Mass Index) 35.15 kg/m2 Edilberto FND 09-29-2015 12:48-0400 Body weight 114.31 kg Ericka Muniz [facility] [employer] 09-29-2015 12:48-0400 BP Diastolic 68 mm[Hg] Edilberto FND 09-29-2015 12:48-0400 BP Systolic 108 mm[Hg] Edilberto FND 09-29-2015 12:48-0400 BSA (Body Surface Area) 2.39 m2 Edilberto Zamora [employer] 09-29-2015 12:48-0400 Height 180.34 cm Edilberto Zamora [facility] [employer] 09-29-2015 12:48-0400 Pulse (Heart Rate) 76 /min Edilberto JaraRewardMeMonroe Val velasquez [employer] 09-29-2015 12:48-0400 Weight 114.31 kg Edilberto FND 08-26-2015 15:06-0500 Pulse Oximetry 97 % Edilberto FND 08-26-2015 15:06-0500 SaO2% (BldA) [Mass fraction] 97 % Ericka Muniz [facility] [employer] [facility] 08-26-2015 14:14-0500 BMI (Body Mass Index) 36.26 kg/m2 Edilberto FND 08-26-2015 14:14-0500 Body Temperature 98.1 [degF] Edilberto Zamora Monroe Maldonado y [employer] 08-26-2015 14:14-0500 Body weight 117.94 kg Ericka Muniz [facility] [employer] [facility] 08-26-2015 14:14-0500 BP Diastolic 64 mm[Hg] Edilberto FND 08-26-2015 14:14-0500 BP Systolic 100 mm[Hg] Edilberto FND 08-26-2015 14:14-0500 BSA (Body Surface Area) 2.43 m2 Edilberto FND 08-26-2015 14:14-0500 Height 180.34 cm Edilberto SilveiramyAchy 08-26-2015 14:14-0500 Pulse (Heart Rate) 112 /min Edilberto Tijerina [employer] 08-26-2015 14:14-0500 Respiratory Rate 20 /min Edilberto Maldonado [email or web address] 08-26-2015 14:14-0500 Weight 117.94 kg Edilberto SilveiramyAchy 08-12-2015 13:36-0500 BMI (Body Mass Index) 36.26 kg/m2 Edilberto Zamora [employer] 08-12-2015 13:36-0500 Body weight 117.94 kg Ericka SilveiramyAchy 08-12-2015 13:36-0500 BP Diastolic 70 mm[Hg] Edilberto SilveiramyAchy 08-12-2015 13:36-0500 BP Systolic 104 mm[Hg] Edilberto Zamora [employer] 08-12-2015 13:36-0500 BSA (Body Surface Area) 2.43 m2 Edilberto Zamora [employer] 08-12-2015 13:36-0500 Height 180.34 cm Edilberto SilveiramyAchy 08-12-2015 13:36-0500 Pulse (Heart Rate) 76 /min Edilberto Tijerina [employer] 08-12-2015 13:36-0500 Weight 117.94 kg Edilberto Zamora [facility] [employer] 07-24-2015 13:00-0500 BMI (Body Mass Index) 36.4 kg/m2 Edilberto FND 07-24-2015 13:00-0500 Body Temperature 97.6 [degF] Edilberto [employer]Force 07-24-2015 13:00-0500 Body weight 118.39 kg Ericka Muniz [facility] 07-24-2015 13:00-0500 BP Diastolic 80 mm[Hg] Edilberto FND 07-24-2015 13:00-0500 BP Systolic 144 mm[Hg] Edilberto FND 07-24-2015 13:00-0500 BSA (Body Surface Area) 2.44 m2 Edilberto FND 07-24-2015 13:00-0500 Height 180.34 cm Edilberto FND 07-24-2015 13:00-0500 Pulse (Heart Rate) 120 /min Edilberto JaraPalantir Technologies 07-24-2015 13:00-0500 Weight 118.39 kg Edilberto FND 06-03-2015 13:38-0500 BMI (Body Mass Index) 35.98 kg/m2 Edilberto FND 06-03-2015 13:38-0500 Body Temperature 98.8 [degF] Edilberto [employer]Force 06-03-2015 13:38-0500 Body weight 117.03 kg Ericka Muniz [facility] [employer] 06-03-2015 13:38-0500 BP Diastolic 90 mm[Hg] Edilberto FND 06-03-2015 13:38-0500 BP Systolic 144 mm[Hg] Edilberto Zamora [employer] 06-03-2015 13:38-0500 BSA (Body Surface Area) 2.42 m2 Edilberto Zamora [employer] 06-03-2015 13:38-0500 Height 180.34 cm Edilberto Zamora [facility] [employer] [facility] 06-03-2015 13:38-0500 Pulse (Heart Rate) 84 /min Edilberto [email or web address] 06-03-2015 13:38-0500 Weight 117.03 kg Edilberto Zamora [facility] [employer] [facility] Encounters Encounter Date Encounter Type Care Provider Facility Start: 06-16-2023 End: 06-18-2023 Pre-admission assessment NAYLA OAKES [facility] Start: 10-27-2022 ambulatory NAYLA CABALLEROBRADLEY Faci lity:[facility]1 Start: 07-28-2022 End: 07-29-2022 ambulatory NAYLA CABALLEROBRADLEY Facility:[facility] Start: 07-27-2022 Lab Edilberto schmitt Other [facility] Office Start: 07-27-2022 Office Services Ericka Muniz Other [facility] Start: 07-27-2022 Foot examination performed Edilberto Zamora [employer] Start: 07-27-2022 End: 07-27-2022 Office outpatient visit 25 minutes Edilberto Zamora Other [facility] Start: 06-23-2022 End: 06-24-2022 ambulatory NAYLA CABALLEROBRADLEY Facility:[facility] Start: 05-27-2022 End: 05-27-2022 ambulatory Fariha Novak Facility:[facility] Start: 05-27-2022 End: 05-27-2022 ambulatory NON STAFF [facility] Work Phone: Start: 05-27-2022 End: 05-27-2022 Discharged Recurring [facility] [place] Start: 05-26-2022 End: 05-26-2022 ambulatory NON STAFF Facility:[facility] Start: 05-26-2022 End: 05-26-2022 ambulatory NON STAFF [facility] Work Phone: Start: 05-26-2022 End: 05-26-2022 Patient encounter procedure [facility] [address] Start: 05-05-2022 Registered Recurring [facility] [place] Start: 04-22-2022 End: 04-22-2022 ambulatory NON STAFF Facility:[facility] Start: 04-22-2022 End: 04-22-2022 ambulatory NON STAFF [facility] Work Phone: Start: 04-22-2022 End: 04-22-2022 Patient encounter procedure [facility] [place] Start: 04-21-2022 End: 04-21-2022 ambulatory NON STAFF Facility:[facility] Start: 04-21-2022 End: 04-21-2022 ambulatory NON STAFF [facility] Work Phone: Start: 04-21-2022 End: 04-21-2022 Patient encounter procedure [facility] [place] Start: 04-14-2022 Registered Recurring [facility] Start: 04-01-2022 End: 04-01-2022 Emergency department patient visit Madison Carpenterzi Facility:[facility] Start: 04-01-2022 End: 04-01-2022 Emergency department patient visit [facility]Emergency Room Start: 04-01-2022 Office outpatient ne w 20 minutes Franky Turpin Other [facility] Start: 04-01-2022 Office outpatient vi sit 15 minutes Franky Turpin Other [facility] Start: 03-16-2022 Office outpatient vi sit 15 minutes Franky Turpin Other [facility] Start: 02-17-2022 Office outpatient vi sit 15 minutes Franky P Dyana Other [facility] Office Start: 02-17-2022 Lab Ericka Muniz Other [facility] Office Start: 02-17-2022 Office outpatient vi sit 15 minutes Ericka Muniz Other [facility] Office Start: 01-15-2022 Lab Edilberto Jaimes keshia Other [facility] Office Start: 01-15-2022 Office outpatient vi sit 15 minutes Franky P Dyana Other [facility] Office Start: 01-15-2022 Foot examination performed Edilberto Zamora [facility] Start: 01-15-2022 Office outpatient vi sit 25 minutes Edilberto Zamora Other [facility] Office Start: 10-20-2021 Office outpatient vi sit 25 minutes Franky P Dyana Other [facility] Office Start: 10-13-2021 End: 10-14-2021 ambulatory Franky Shay Dyana DPM Facility:[facility] Start: 09-17-2021 End: 09-18-2021 ambulatory Franky Shay Dyana DPM Facility:[facility] Start: 09-17-2021 Office outpatient ne w 45 minutes Franky P Dyana Other [facility] Office Start: 09-17-2021 Office Services Franky P March and Other [facility] Office Start: 09-03-2021 Office outpatient vi sit 25 minutes Ericka Muniz Other [facility] Office Start: 09-03-2021 Foot examination performed Edilberto Zamora [facility] Start: 09-03-2021 Office outpatient vi sit 25 minutes Edilberto Zamora Other [facility] Office Start: 08-18-2021 Lab Edilberto Jaimes keshia Other [facility] Office Start: 08-18-2021 Medicare Lab Edilberto Jaimes keshia Other [facility] Start: 03-19-2021 Medicare Lab Edilberto L Theodore keshia Other [facility] Start: 03-19-2021 Foot examination performed Edilberto JaraBadSeed Start: 03-19-2021 Office outpatient vi sit 25 minutes Edilberto Zamora Other [facility] Office Start: 12-23-2020 Lab Ericka Muniz Other [facility] Office Start: 12-23-2020 Office outpatient vi sit 25 minutes Ericka Muniz Other [facility] Office Start: 10-20-2020 Encounter for genera l adult medical examination without abnormal findings Ericka Muniz [facility] Start: 09-09-2020 Foot exam performed Edilberto FND Start: 09-09-2020 Office outpatient vi sit 25 minutes Edilberto Lawrence Zamora Other [facility] Office Start: 09-09-2020 Medicare Lab Edilberto Jaimes keshia Other [facility] Start: 08-05-2020 Office outpatient vi sit 15 minutes Ericka Muniz Other [facility] Office Start: 06-12-2020 Office outpatient vi sit 15 minutes Ericka Muniz Other [facility] Office Start: 06-04-2020 Office outpatient vi sit 15 minutes Ericka Muniz Other [facility] Office Start: 04-08-2020 Medicare Lab Edilberto L Theodore keshia Other [facility] Start: 04-08-2020 Foot exam performed Edilberto Jara[employer]Seed Start: 04-08-2020 Office outpatient vi sit 25 minutes Edilberto Lawrence Zamora Other [facility] Office Start: 03-25-2020 End: 03-28-2020 Patient encounter procedure MIGNON TOWNSEND [facility] Start: 03-25-2020 End: 03-27-2020 Subsequent hospital visit by physician [facility] MRI Comment on above: Right knee pain, uns pecified chronicity Start: 02-21-2020 Office outpatient vi sit 15 minutes Ericka Muniz Other [facility] Start: 02-12-2020 End: 02-15-2020 Patient encounter procedure ERICKA MUNIZ [facility] Start: 02-12-2020 End: 02-14-2020 Subsequent hospital visit by physician [facility] MRI Comment on above: Acute pain of right shoulder Start: 01-10-2020 Office outpatient vi sit 15 minutes Ericka Muniz Other [facility] Start: 12-28-2019 End: 12-28-2019 Subsequent hospital visit by physician Tess Escalona Work Phone: [facility] OR Comment on above: 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 Start: 12-24-2019 End: 12-28-2019 Subsequent hospital visit by physician [facility] Covid19 Pat Screening Schedule [facility] EKG Start: 12-20-2019 Lab Edilberto schmitt Other [facility] Start: 11-26-2019 Office outpatient vi sit 15 minutes Ericka Muniz Other [facility] Start: 11-26-2019 Office outpatient vi sit 25 minutes Ericka Muniz Other [facility] Start: 11-19-2019 Lab Ericka Muniz Other [facility] Start: 08-28-2019 Foot exam performed Edilberto Zamora [facility] Start: 08-28-2019 Office outpatient vi sit 25 minutes Edilberto Melinda JaraZamora Other [facility] Start: 08-21-2019 Lab Edilberto Lawrence Mareksia keshia Other [facility] Start: 05-28-2019 Encounter for genera l adult medical examination without abnormal findings Edilberto FND Start: 05-28-2019 Routine general medi trent examination at a [facility] care facility Ericka Muniz [facility] Start: 05-28-2019 Periodic preventive med est patient 40-64yrs Ericka Muniz Other [facility] Office Start: 05-22-2019 Lab Ericka Muniz Other [facility] Office Start: 04-17-2019 Foot exam performed Edilberto [facility] Start: 04-17-2019 Office outpatient vi sit 25 minutes Edilberto Zamora Other [facility] Office Start: 04-12-2019 Follow-up visit Ayden Trud[facility] Start: 04-12-2019 Office outpatient vi sit 5 minutes Ayden Trudy [facility] Start: 04-12-2019 Postoperative follow -up visit Edilberto [facility] Start: 04-12-2019 Procedure Ayden bowden Other [facility] Office Start: 04-09-2019 Lab Edilberto Melinda Jaimes keshia Other [facility] Office Start: 03-29-2019 Procedure Ayden bowden Other [facility] Office Start: 02-26-2019 Office outpatient ne w 20 minutes Ayden Yates Other [facility] Office Start: 01-25-2019 Encounter for genera l adult medical examination without abnormal findings Edilberto [facility] Start: 01-25-2019 Routine general medi trent examination at a health care facility Ericka Muniz [facility] Start: 01-25-2019 Office outpatient vi sit 15 minutes Ericka Muniz Other [facility] Office Start: 01-02-2019 Office Services Natty schneider Other [facility] Office Start: 12-12-2018 Foot exam performed Edilberto Zamora Doctor on [facility] Start: 12-12-2018 Office outpatient vi sit 25 minutes Edilberto Zamora Other [facility] Office Start: 12-08-2018 Lab Edilberto Jaimes keshia Other [facility] Office Start: 11-09-2018 Patient encounter procedure LENKA ROQUE [facility] Start: 10-12-2018 Procedure Sasha Morris Other [facility] Start: 10-02-2018 Foot exam performed Edilbertogavi Thomas hroeder Other [facility] Office Start: 10-02-2018 Office outpatient vi sit 25 minutes Edilberto Zamora Other [facility] Start: 09-26-2018 Office Services Edilbertogavi Jaimes keshia Other [facility] Office Start: 08-30-2018 Encounter for genera l adult medical examination without abnormal findings Edilberto Zamora [facility] Start: 08-30-2018 Routine general medi trent examination at a health care facility Edilberto Zamora [facility] Start: 08-30-2018 Office outpatient vi sit 25 minutes Ericka Munzi Other [facility] Office Start: 08-23-2018 Lab Ericka Muniz Other [facility] Office Start: 07-27-2018 Office Services Edilberto L Mareke keshia Other [facility] Office Start: 06-21-2018 Procedure Pedro swansoncordelia Other [facility] Start: 06-19-2018 Foot exam performed Edilberto L Sc hroeder Other [facility] Office Start: 06-19-2018 Office outpatient vi sit 25 minutes Edilberto L Zamora Other [facility] Start: 06-12-2018 Lab Edilberto L Schroe keshia Other [facility] Office Start: 04-20-2018 Walk-In Ericka Muniz Other [facility] Office Start: 04-20-2018 Office Services Natty schneider Other [facility] Office Start: 03-20-2018 Foot exam performed Edilberto L Sc hroeder Other [facility] Office Start: 03-20-2018 Office outpatient vi sit 25 minutes Edilberto L Zamora Other [facility] Start: 03-08-2018 Lab Edilberto L Schroe keshia Other [facility] Office Start: 03-01-2018 Office outpatient vi sit 25 minutes Ericka Muniz Other [facility] Office Start: 02-22-2018 Lab Ericka Muniz Other [facility] Office Start: 01-18-2018 Office Services Ericka Muniz Other [facility] Office Start: 12-13-2017 Foot exam performed Edilberto L Sc hroeder Other [facility] Office Start: 12-13-2017 Office outpatient vi sit 25 minutes Edilberto L Zamora Other [facility] Start: 12-09-2017 Office Services Ericka Muniz Other [facility] Office Start: 11-25-2017 Lab Edilberto L Schroe keshia Other [facility] Office Start: 09-08-2017 Office Services Edilberto L Schroe keshia Other [facility] Office Start: 09-01-2017 Office outpatient vi sit 25 minutes Ericka Muniz Other [facility] Office Start: 08-24-2017 Lab Ericka Muniz Other [facility] Office Start: 08-09-2017 Office Services Natty schneider Other [facility] Office Start: 08-05-2017 Foot exam performed Edilberto Zamora [facility] Start: 08-05-2017 Office outpatient vi sit 25 minutes Edilberto L Zamora Other [facility] Office Start: 08-01-2017 Lab Edilberto L Mareke keshia Other [facility] Office Start: 06-27-2017 Office outpatient vi sit 15 minutes Ericka Muniz Other [facility] Office Start: 04-05-2017 Foot exam performed Edilberto L Sc hroeder Other [facility] Office Start: 04-05-2017 Office outpatient vi sit 25 minutes Edilberto L Zamora Other [facility] Start: 03-29-2017 Lab Edilberto L Mareke keshia Other [facility] Office Start: 03-01-2017 Office outpatient vi sit 25 minutes Ericka Muniz Other [facility] Office Start: 02-17-2017 End: 02-17-2017 Split Srvc Ericka Muniz Other [facility] Office Start: 02-09-2017 Office outpatient vi sit 25 minutes Ericka Muniz Other [facility] Office Start: 11-30-2016 Foot exam performed Edilberto L Sc hroeder Other [facility] Office Start: 11-30-2016 Office outpatient vi sit 25 minutes Edilberto L Zamora Other [facility] Start: 11-23-2016 Lab Edilberto L Schroe keshia Other [facility] Office Start: 09-28-2016 Office outpatient vi sit 25 minutes Ericka Muniz Other [facility] Office Start: 09-21-2016 Lab Ericka Muniz Other [facility] Office Start: 08-13-2016 [facility] Srvc Sasha Verdugo Alexandra Other [facility] Office Start: 08-03-2016 Foot exam performed Edilberto L Sc hroeder Other [facility] Office Start: 08-03-2016 Office outpatient vi sit 25 minutes Edilberto L Zamora Other [facility] Start: 07-27-2016 Lab Edilberto Jarae keshia Other [facility] Office Start: 03-31-2016 Office outpatient vi sit 25 minutes Ericka Muniz Other [facility] Office Start: 03-30-2016 Foot exam performed Edilbertogavi Thomas hroeder Other [facility] Office Start: 03-30-2016 Office outpatient vi sit 25 minutes Edilberto L Zamora Other [facility] Start: 03-04-2016 Lab Edilberto Jarae keshia Other [facility] Office Start: 02-23-2016 Office outpatient vi sit 15 minutes Ericka Muniz Other [facility] Office Start: 12-23-2015 Office outpatient vi sit 15 minutes Ericka Muniz Other [facility] Office Start: 12-09-2015 Office outpatient vi sit 15 minutes Ericka Muniz Other [facility] Office Start: 12-03-2015 Office outpatient vi sit 15 minutes Edilberto L Zamora Other [facility] Office Start: 11-26-2015 Lab Edilbertogavi Jarae keshia Other [facility] Office Start: 11-18-2015 Office outpatient vi sit 25 minutes Ericka Muniz Other [facility] Office Start: 11-07-2015 Lab Edilberto schmitt Other [facility] Office Start: 11-05-2015 Foot exam performed Edilberto Lawrence William dlegado Other [facility] Office Start: 11-05-2015 Office outpatient vi sit 25 minutes Edilberto Zamora Other [facility] Start: 10-29-2015 Lab Edilberto schmitt Other [facility] Office Start: 10-13-2015 Office outpatient vi sit 15 minutes Ericka Muniz Other [facility] Office Start: 10-03-2015 Foot exam performed Edilberto Zamora [facility] Start: 10-03-2015 Office consultation new/estab patient 80 min Edilbertogavi Zamora Other [facility] Office Start: 10-02-2015 Office Services Ericka Muniz Other [facility] Office Start: 09-29-2015 Office outpatient vi sit 25 minutes Ericka Muniz Other [facility] Office Start: 09-24-2015 Procedure Jesus Del Cid Other [facility] Start: 08-26-2015 Office consultation new/estab patient 60 min Jesus Del Cid Other [facility] Office Start: 08-12-2015 Office Services Ericka Muniz Other [facility] Office Start: 08-06-2015 Split Srvc Ericka Muniz Other [facility] Office Start: 08-05-2015 Lab Ericka Muniz Other [facility] Office Start: 08-05-2015 End: 08-05-2015 Split Srvc Ericka Muniz Other [facility] Office Start: 07-24-2015 Office outpatient vi sit 15 minutes Lindsay Kimball Other [facility] Office Start: 06-03-2015 Office outpatient ne w 45 minutes Ericka Muniz Other [facility] Office Procedures Date Procedure Procedure Detail Performing Clinician Start: 07-27-2022 Dip UA (for Ketones) Edilberto Sera Start: 07-27-2022 Serum inorganic phosphate measurement Edilberto Zamora Start: 07-27-2022 Diabetic foot examination Edilberto shah Start: 07-27-2022 Docrev cur meds by liv Casanova Marek torres Start: 07-21-2022 Comprehensive metabolic panel Edilberto Richardson elisa Start: 07-21-2022 Hemoglobin A1c measurement Edilberto Woods er Start: 07-21-2022 MICROALBUMIN/Urine Creat Ratio Edilberto michel Start: 07-21-2022 Parathyroid hormone measurement Edilberto Sc hroeder Start: 07-21-2022 Vitamin D, 25-hydroxy measurement [...] Start: 03-31-2022 Docrev cur meds by liv anton Start: 03-31-2022 X-ray of left ankle Franky Dyana Start: 03-16-2022 Diagnostic radiologic examination Heriberto Gunn Other Start: 03-16-2022 Docrev cur meds by liv anton Start: 03-16-2022 X-ray of left ankle Franky Dyana Start: 03-16-2022 X-ray of left foot Franky Dyana Start: 02-17-2022 End: 02-17-2022 Comprehensive metabolic panel Franky wilde Start: 02-17-2022 Docrev cur meds by liv Muniz Start: 02-17-2022 Hemoglobin A1c measurement Franky Naiud nd Start: 02-17-2022 Lipid panel Franky Turpin Start: 02-17-2022 MICROALBUMIN/Urine Creat Ratio Franky chung Start: 02-16-2022 Docrev cur meds by [facility] priscilla Muniz Start: 01-18-2022 Diabetic foot examination Edilberto shah Start: 01-15-2022 Dip UA (for Ketones) Edilberto Zamora Start: 01-15-2022 Docrev cur meds by [facility] priscilla torres Start: 01-14-2022 Docrev cur meds by [facility] Franky Dagoberto hand Start: 01-01-2022 Comprehensive metabolic panel Edilberto pérez Start: 01-01-2022 Erythrocyte mean corpuscular volume determination Edilberto Zamora Start: 01-01-2022 Gamma glutamyl transferase measurement Edilberto Zamora Start: 01-01-2022 Hemoglobin A1c measurement Edilberto levi Start: 01-01-2022 MICROALBUMIN/Urine Creat Ratio Edilberto michel Start: 10-20-2021 Docrev cur meds by [facility] priscilla Franky anton Start: 09-17-2021 Dup-scan lxtr art/artl bpgs uni/lmtd study Franky [facility] Start: 09-17-2021 Non-invasive physiologic study [facility] Start: 09-17-2021 Docrev cur meds by [facility] Franky anton Start: 09-17-2021 Doppler ultrasonography of artery of lower limb Franky [facility] Start: 09-17-2021 Plain X-ray of toe Franky [facility] Start: 09-17-2021 Wound microscopy, culture and sensitivities Franky [facility] Start: 09-03-2021 Diabetic foot examination Edilberto shah Start: 09-03-2021 Docrev cur meds by [facility] Edilberto torres Start: 08-18-2021 BS-Dip Edilberto Zamora Start: 08-18-2021 Comprehensive metabolic panel Edilberto pérez Start: 08-18-2021 Erythrocyte mean corpuscular volume determination Edilberto Zamora Start: 08-18-2021 Hemoglobin A1c measurement Edilberto Peggy levi Start: 08-18-2021 Lipid panel Edilberto Zamora Start: 07-19-2021 Gamma glutamyl transferase measurement Edilberto Zamora Start: 03-19-2021 Dip UA (for Ketones) Edilberto Zamora Start: 03-19-2021 Diabetic foot examination Edilberto Whatley r Start: 03-19-2021 Docrev cur meds by [facility] Edilberto torres Start: 03-12-2021 Comprehensive metabolic panel Edilberto Debra pérez Start: 03-12-2021 Erythrocyte mean corpuscular volume determination Edilberto Zamora Start: 03-12-2021 Hemoglobin A1c measurement Edilberto Wodos gurmeet Start: 03-12-2021 Parathyroid hormone measurement Edilberto keatingoeder Start: 03-12-2021 Serum inorganic phosphate measurement Edilberto Zamora Start: 12-23-2020 End: 12-23-2020 Comprehensive metabolic panel Ericka Muniz Start: 12-23-2020 Docrev cur meds by [facility] Ericka Muniz Start: 12-23-2020 Erythrocyte mean corpuscular volume determination Ericka Muniz Start: 12-23-2020 Hemoglobin A1c measurement Ericka Muniz Start: 12-23-2020 Lipid panel Ericka Muniz Start: 12-23-2020 MICROALBUMIN/Urine Creat Ratio Edilberto Toni michel Start: 12-23-2020 Urinalysis, automated Ericka Muniz Start: 09-09-2020 Dip UA (for Ketones) Edilberto Sera Start: 09-09-2020 Diabetic foot examination Edilberto Peggysia r Start: 09-09-2020 Doc meds verified w/pt or re Edilberto torres Start: 08-08-2020 Comprehensive metabolic panel Edilberto Tonijudy elisa Start: 08-08-2020 Hemoglobin A1c measurement Erikca Muniz Start: 08-08-2020 Hemoglobin glycosylated a1c Edilberto schmitt Start: 04-08-2020 Dip UA (for Ketones) Edilberto Zamora Start: 04-08-2020 Diabetic foot examination Edilberto Marekellie r Start: 04-08-2020 Doc meds verified w/pt or re Edilberto torres Start: 03-28-2020 Glucose quantitative blood xcpt reagent strip Edilberto Zamora Start: 03-28-2020 Hemoglobin A1c measurement Ericka Muniz Start: 03-28-2020 Hemoglobin glycosylated a1c Edilberto Theodore schmitt Start: 03-28-2020 Hepatic function panel Edilberto Sera Start: 03-28-2020 Hepatic function panel Ericka Muniz Start: 03-25-2020 Mri any jt lower extrem w/o contrast matrl WALTERSANTOSH CALVILLO Start: 03-25-2020 Mri any jt lower extrem w/o contrast matrl Mignon Verdugo Timo Work Phone: Start: 02-21-2020 Doc meds verified w/pt or re Ericka Muniz Start: 02-12-2020 Mri any jt upper extremity w/o contrast matrl WALTER ESCOBARGUI Start: 02-12-2020 Mri any jt upper extremity w/o contrast matrl Mignon Verdugo Ranger Work Phone: Start: 01-09-2020 Doc meds verified w/pt or re Edilberto torres Start: 12-28-2019 GLUCOSE, WHOLE BLOOD Tess Escalona Work Phone: Start: 12-27-2019 Basic metabolic panel calcium total Edilberto Zamora Start: 12-27-2019 Doc meds verified w/pt or re Edilberto torres Start: 12-27-2019 Hemoglobin A1c measurement Ericka Muniz Start: 12-27-2019 Hemoglobin glycosylated a1c Edilberto schmitt Start: 12-26-2019 Assay of urea nitrogen quantitative WALTER CALVILLO Start: 12-26-2019 Blood count hematocrit WALTER CALVILLO Start: 12-26-2019 Creatinine blood WALTER CALVILLO Start: 12-26-2019 Electrolyte panel WALTER CALVILLO Start: 12-26-2019 Glucose quantitative blood xcpt reagent strip WALTER CALVILLO Start: 12-26-2019 Assay of urea nitrogen quantitative Tess Escalona Work Phone: Start: 12-26-2019 Blood count hematocrit Tess C Pola Work Phone: Start: 12-26-2019 Creatinine blood Tess C Pola Work Phone: Start: 12-26-2019 Electrolyte panel Tess C Escalona Work Phone: Start: 12-26-2019 Glucose quantitative blood xcpt reagent strip Tess Abreuland Work Phone: Start: 12-24-2019 Ecg routine ecg w/least 12 lds w/i&r WALTER CALVILLO Start: 12-24-2019 EKG REPORT WALTER CALVILLO Start: 12-24-2019 COVID-19 WALTER CALVILLO Start: 12-24-2019 Ecg routine ecg w/least 12 lds w/i&r Tess Escalona Work Phone: Start: 12-24-2019 EKG REPORT Hpf Scanning Start: 12-24-2019 Walter Galan Calvillo Work Phone: Start: 11-27-2019 Comprehensive metabolic panel Ericka Muniz Start: 11-27-2019 Hemoglobin A1c measurement Ericka Muniz Start: 11-27-2019 Hemoglobin glycosylated a1c Ericka Muniz Start: 11-27-2019 Lipid panel Ericka Muniz Start: 11-27-2019 Lipid panel Ericka Muniz Start: 11-27-2019 MICROALBUMIN/Urine Creat Ratio Ericka Muniz Start: 11-26-2019 Doc meds verified w/pt or re Ericka Muniz Start: 08-28-2019 Basic metabolic panel calcium total Edilberto Sera Start: 08-28-2019 Diabetic foot examination Edilberto shah Start: 08-28-2019 Doc meds verified w/pt or re Edilberto torres Start: 08-18-2019 Assay of glutamyltrase gamma Edilberto torres Start: 08-18-2019 Basic metabolic panel calcium total Edilberto Zamora Start: 08-18-2019 Gamma glutamyl transferase measurement Ericka Muniz Start: 08-18-2019 Hemoglobin A1c measurement Ericka Muniz Start: 08-18-2019 Hemoglobin glycosylated a1c Edilberto Mareksia keshia Start: 05-28-2019 Doc meds verified w/pt or [...] Start: 04-13-2019 Hemoglobin glycosylated a1c Ayden Scarbr flory Start: 04-13-2019 MICROALBUMIN/Urine Creat Ratio Ayden Hernandez rbrough Start: 04-12-2019 Postoperative follow-up visit Ericka [...] Muniz Start: 02-27-2019 Hemoglobin glycosylated a1c Edilberto Jaimes keshia Start: 02-27-2019 Lipid panel Edilberto Zamora Start: 02-27-2019 Lipid panel Ericka Muniz Start: 02-27-2019 MICROALBUMIN/Urine Creat Ratio Edilberto michel Start: 02-27-2019 Prostate specific antigen measurement Ericka Muniz Start: 02-26-2019 Doc meds verified w/pt or re Ayden Scarb rough Start: 02-26-2019 Skin Tag removal (SKNTG) Edilberto Zamora Start: 01-25-2019 Doc meds verified w/pt or re Ericka Muniz Start: 01-02-2019 Medical nutrition re-assmt&ivntj indiv ea 15 m Edilberto Zamora Start: 12-12-2018 Diabetic foot examination Edilberto shah Start: 12-02-2018 Glucose measurement, quantitative Ericka Coughlin ox Start: 12-02-2018 Glucose quantitative blood xcpt reagent strip Edilberto Zamora Start: 12-02-2018 Hemoglobin A1c measurement Ericka Muniz Start: 12-02-2018 Hemoglobin glycosylated a1c Edilberto Theodore keshia Start: 10-02-2018 Diabetic foot examination Edilberto Whatley r Start: 10-02-2018 Doc meds verified w/pt or re Edilberto torres Start: 09-26-2018 Medical nutrition re-assmt&ivntj indiv ea 15 m Ericka Muniz Start: 09-17-2018 Blood count complete automated Edilberto michel Start: 09-17-2018 Erythrocyte mean corpuscular volume determination Ericka Muniz Start: 09-17-2018 Glucose measurement, quantitative Ericka F ox Start: 09-17-2018 Glucose quantitative blood xcpt reagent strip Ericka Muniz Start: 09-17-2018 Hemoglobin A1c measurement Ericka Muniz Start: 09-17-2018 Hemoglobin glycosylated a1c Ericka Muniz Start: 09-17-2018 Hepatic function panel Ericka Muinz Start: 09-17-2018 Hepatic function panel Ericka Muniz Start: 09-17-2018 Vitamin B12 and Folate Edilberto Zamora Start: 09-01-2018 Assay of prostate specific antigen total Edilberto Zamora Start: 09-01-2018 Comprehensive metabolic panel Edilberto pérez Start: 09-01-2018 Hemoglobin A1c measurement Ericka Muniz Start: 09-01-2018 Hemoglobin glycosylated a1c Edilberto Theodore schmitt Start: 09-01-2018 Lipid panel Edilberto Zamora Start: 09-01-2018 Lipid panel Ericka Muniz Start: 09-01-2018 MICROALBUMIN/Urine Creat Ratio Edilberto michel Start: 09-01-2018 Prostate specific antigen measurement Ericka Muniz Start: 08-30-2018 Doc meds verified w/pt or re Edilberto torres Start: 07-27-2018 Medical nutrition re-assmt&ivntj indiv ea 15 m Edilberto Zamora Start: 06-19-2018 Diabetic foot examination Edilbertogavi Whatley r Start: 06-19-2018 Doc meds verified w/pt or re Edilberto torres Start: 06-19-2018 Glucose measurement, quantitative Ericka F ox Start: 06-19-2018 Glucose quantitative blood xcpt reagent strip Edilberto Zamora Start: 06-19-2018 Hemoglobin A1c measurement Ericka Muniz Start: 06-19-2018 Hemoglobin glycosylated a1c Edilberto Theodore keshia Start: 04-20-2018 Medical nutrition re-assmt&ivntj indiv ea 15 m Ericka Muniz Start: 03-20-2018 Diabetic foot examination Edilberto Marekamisia r Start: 03-15-2018 Glucose measurement, quantitative Ericka F ox Start: 03-15-2018 Glucose quantitative blood xcpt reagent strip Ayden Yates Start: 03-15-2018 Hemoglobin A1c measurement Ericka Muniz Start: 03-15-2018 Hemoglobin glycosylated a1c Ayden rtuh Start: 03-15-2018 MICROALBUMIN/Urine Creat Ratio Ayden lugo Start: 03-01-2018 Doc meds verified w/pt or re Edilberto torres Start: 02-23-2018 Comprehensive metabolic panel Edilberto pérez Start: 02-23-2018 Hemoglobin A1c measurement Ericka Muniz Start: 02-23-2018 Hemoglobin glycosylated a1c Edilberto Theodore keshia Start: 02-23-2018 Lipid panel Edilberto Zamora Start: 02-23-2018 Lipid panel Ericka Muniz Start: 02-23-2018 MICROALBUMIN/Urine Creat Ratio Edilberto michel Start: 01-18-2018 Medical nutrition re-assmt&ivntj indiv ea 15 m Ayden Yates Start: 12-13-2017 Diabetic foot examination Edilberto shah Start: 12-13-2017 Doc meds verified w/pt or re Edilberto torres Start: 12-13-2017 Hepatic function panel Ericka Muniz Start: 12-13-2017 Hepatic function panel Ericka Muniz Start: 12-09-2017 Diab manage trn per indiv Ericka Muniz Start: 12-09-2017 Diabetes self-monitoring health education Ericka Muniz Start: 12-03-2017 Glucose measurement, quantitative Ericka Coughlin ox Start: 12-03-2017 Glucose quantitative blood xcpt reagent strip Edilberto Zamora Start: 12-03-2017 Hemoglobin A1c measurement Ericka Muniz Start: 12-03-2017 Hemoglobin glycosylated a1c Edilberto Jaimes keshia Start: 09-08-2017 Diab manage trn per indiv Edilberto Phylicia r Start: 09-08-2017 Diabetes self-monitoring health education Ericka Muniz Start: 09-01-2017 Current Medications Verified MIPS Edilberto Zamora Start: 08-25-2017 Alanine aminotransferase measurement Ericka Muniz Start: 08-25-2017 Aspartate aminotransferase measurement Ericka Muniz Start: 08-25-2017 Basic metabolic panel calcium total Edilberto Zamora Start: 08-25-2017 Hemoglobin A1c measurement Ericka Muniz Start: 08-25-2017 Hemoglobin glycosylated a1c Edilberto Jaimes keshia Start: 08-25-2017 Lipid panel Edilberto Zamora Start: 08-25-2017 Lipid panel Ericka Muniz Start: 08-25-2017 MICROALBUMIN/Urine Creat Ratio Edilberto Toni michel Start: 08-25-2017 Transferase alanine amino alt sgpt Edilberto Zamora Start: 08-25-2017 Transferase aspartate amino ast sgot Edilberto Zamora Start: 08-09-2017 Diab manage trn per indiv Edilberto Phylicia shah Start: 08-09-2017 Diabetes self-monitoring health education Ericka Muniz Start: 08-05-2017 Diabetic foot examination Edilberto Phylicia judy Start: 08-05-2017 Glucose measurement, quantitative Ericka F ox Start: 08-05-2017 Glucose quantitative blood xcpt reagent strip Edilberto Zamora Start: 08-05-2017 Hemoglobin A1c measurement Ericka Muniz Start: 08-05-2017 Hemoglobin glycosylated a1c Edilberto schmitt Start: 08-01-2017 BS-Dip Edilberto Zamora Start: 06-27-2017 Doc meds verified w/pt or re Edilberto torres Start: 04-05-2017 Current Medications Verified MIPS Edilberto Zamora Start: 04-05-2017 Diabetic foot examination Edilberto Phylicia shah Start: 04-02-2017 Glucose measurement, quantitative Ericka F ox Start: 04-02-2017 Glucose quantitative blood xcpt reagent strip Edilberto Zamora Start: 04-02-2017 Hemoglobin A1c measurement Ericka Muniz Start: 04-02-2017 Hemoglobin glycosylated a1c Edilberto Theodore schmitt Start: 04-02-2017 MICROALBUMIN/Urine Creat Ratio Edilberto [...] ecg w/least 12 lds w/i&r Edilberto Zamora Start: 12-01-2016 Glucose measurement, quantitative Ericka F ox Start: 12-01-2016 Glucose quantitative blood xcpt reagent strip Edilberto Zamora Start: 12-01-2016 Hemoglobin A1c measurement Ericka Muniz Start: 12-01-2016 Hemoglobin glycosylated a1c Edilberto Jaimes keshia Start: 11-30-2016 Diabetic foot examination Edilberto Whatley r Start: 11-23-2016 Dip UA (for Ketones) Edilberto Zamora Start: 09-21-2016 Alanine aminotransferase measurement Ericka Muniz Start: 09-21-2016 Aspartate aminotransferase measurement Ericka Muniz Start: 09-21-2016 End: 09-21-2016 Basic metabolic panel calcium total Edilberto Zamora Start: 09-21-2016 Hemoglobin A1c measurement Ericka Muniz Start: 09-21-2016 Hemoglobin glycosylated a1c Edilberto Jaimes keshia Start: 09-21-2016 Lipid panel Edilberto Zamora Start: 09-21-2016 Lipid panel Ericka Muniz Start: 09-21-2016 Transferase alanine amino alt sgpt Edilberto Zamora Start: 09-21-2016 Transferase aspartate amino ast sgot Edilberto Zamora Start: 09-21-2016 Basic metabolic panel calcium ionized Edilberto Zamora Start: 09-21-2016 Blood chemistry Ericka Muniz Start: 08-24-2016 MICROALBUMIN/Urine Creat Ratio Edilberto Toni michel Start: 08-13-2016 Ankle brachial pressure index [...] keshia Start: 07-30-2016 MICROALBUMIN/Urine Creat Ratio Edilberto Muñoz anand Start: 07-30-2016 Thyroid stimulating hormone measurement Ericka Muniz Start: 07-30-2016 Thyroxine measurement Ericka Muniz Start: 07-27-2016 Basic metabolic panel calcium ionized Edilberto Zamora Start: 07-27-2016 Basic metabolic panel calcium total Edilberto Zamora Start: 07-27-2016 Blood chemistry Ericka Muniz Start: 01-17-2017 Dip UA (for Ketones) Edilberto Zamora Start: 03-30-2016 Diabetic foot examination Edilberto shah Start: 03-20-2016 Alanine aminotransferase measurement Ericka Flavio Start: 03-20-2016 Aspartate aminotransferase measurement Ericka Muniz Start: 03-20-2016 Basic metabolic panel calcium total Edilberto Zamora Start: 03-20-2016 Hemoglobin A1c measurement Ericka Muniz Start: 03-20-2016 Hemoglobin glycosylated a1c Edilberto Jaimes keshia Start: 03-20-2016 Lipid panel Edilberto Zamroa Start: 03-20-2016 Lipid panel Ericka Muniz Start: 03-20-2016 Transferase alanine amino alt sgpt Edilberto Zamora Start: 03-20-2016 Transferase aspartate amino ast sgot Edilberto Zamora Start: 03-04-2016 Basic metabolic panel calcium total Edilberto Zamora Start: 03-04-2016 Hemoglobin A1c measurement Ericka Muniz Start: 03-04-2016 Hemoglobin glycosylated a1c Edilberto schmitt Start: 12-05-2015 Assay of thyroid stimulating hormone tsh Edilberto Sera Start: 12-05-2015 Assay of thyroxine total Edilberto [...] Muniz Start: 11-03-2015 Hemoglobin glycosylated a1c Edilberto Jaimes keshia Start: 11-03-2015 MICROALBUMIN/Urine Creat Ratio Edilberto Toni michel Start: 10-03-2015 Assay of c-peptide Edilberto Zamora Start: 10-03-2015 Basic metabolic panel calcium total Edilberto Sera Start: 10-03-2015 Cortisol measurement Ericka Muniz Start: 10-03-2015 Cortisol total Edilberto Zamora Start: 10-03-2015 Diab manage trn per indiv Edilberto shah Start: 10-03-2015 Diabetes self-monitoring health education Ericka Muniz Start: 10-03-2015 Diabetic foot examination Edilberto shah Start: 10-03-2015 Glucose measurement, quantitative Ericka allen Start: 10-03-2015 Glucose quantitative blood xcpt reagent strip Edilberto Zamora Start: 10-03-2015 Insulin C-peptide measurement Ericka Muniz Start: 09-29-2015 Medical nutrition assmt&ivntj indiv each 15 mi Edilberto Zamora Start: 09-29-2015 Therapeutic prophylactic/dx injection subq/im Edilberto Zamora Start: 09-24-2015 Unlisted pulmonary service/procedure Edilberto Zamora Start: 08-26-2015 Allergen spec ige crude allergen extract each Edilberto Zamora Start: 08-26-2015 Assay of gammaglobulin ige Edilberto Marekami gurmeet Start: 08-26-2015 Blood count complete auto&auto difrntl [...] Muniz Start: 08-05-2015 Myocardial spect multiple studies Edliberto Zamora Start: 08-05-2015 Regadenoson injection Edilberto Zamora Start: 08-05-2015 Tc99m sestamibi Edilberto Zamora Start: 08-04-2015 Alanine aminotransferase measurement Ericka Muniz Start: 08-04-2015 Aspartate aminotransferase measurement Ericka Muniz Start: 08-04-2015 Basic metabolic panel calcium total Edilberto Zamora Start: 08-04-2015 Hemoglobin A1c measurement Ericka Muniz Start: 08-04-2015 Hemoglobin glycosylated a1c Edilberto Theodore schmitt Start: 08-04-2015 Lipid panel Edilberto Sera Start: 08-04-2015 Lipid panel Ericka Muniz Start: 08-04-2015 MICROALBUMIN/Urine Creat Ratio Edilberto michel Start: 08-04-2015 Transferase alanine amino alt sgpt Edilberto Zamora Start: 08-04-2015 Transferase aspartate amino ast sgot Edilberto Zamora Start: 07-24-2015 Chest x-ray Edilberto Zamora Start: 07-24-2015 Ecg routine ecg w/least 12 lds w/i&r Edilberto Zamora Plan of Treatment Date Care Activity Detail Author Start: 01-25-2023 Assay of prostate specific antigen total PSA, total [facility] Start: 01-25-2023 Blood count complete automated CBC PLATELET COUNT; AUTOMATED [facility] Start: 01-25-2023 Comprehensive metabo lic panel CMP [facility] Start: 01-24-2023 Glucose quantitative blood xcpt reagent strip GLUCOSE [facility] Start: 01-24-2023 Hemoglobin glycosyla ramses a1c HEMOGLOBIN A1C [facility] Start: 01-24-2023 Lipid panel Lipid profile [facility] Start: 01-24-2023 Transferase alanine amino alt sgpt SGPT (ALT) [facility] Start: 10-11-2022 ambulatory Ambulatory Facility:[facility] Start: 07-21-2022 25 hydroxy includes fractions if performed VITAMIN D 25-HYDROXY [facility] Start: 07-21-2022 Assay of parathormone [facility] Start: 07-21-2022 Comprehensive metabo lic panel CMP (comprehensive metabolic panel) [facility] Start: 07-21-2022 Hemoglobin glycosyla ramses a1c HEMOGLOBIN A1C [facility] Start: 07-19-2022 Lipid panel Lipid panel [facility] Start: 05-04-2022 X-ray of left ankle ANKLE COMP LETE X-RAY 3 VIEWS [facility] Start: 04-22-2022 MR Foot - right WO a nd W contrast IV [facility] Start: 04-22-2022 MRI of right foot wi th contrast MR foot RT wo/w con [facility] Start: 04-21-2022 MR Ankle - right WO and W contrast IV [facility] Start: 04-21-2022 MRI of right ankle w ith contrast MR ankle RT wo/w con [facility] Start: 04-05-2022 Assay of lactate Lactic acid serum B [facility] [employer] [facility] Start: 04-05-2022 Blood count complete auto&auto difrntl wbc CBC w diff [facility] Start: 04-05-2022 C-reactive protein CRP [facility] Start: 04-05-2022 Comprehensive metabo lic panel CMP [facility] Start: 04-05-2022 MRI of lower extremity MRI ankle and foot [facility] Start: 04-05-2022 Sedimentation rate r bc non-automated ESR non-auto [facility] Start: 04-01-2022 Duplex scan of lower limb veins US venous duplex LE [facility] Start: 04-01-2022 US Lower extremity v ein - right [facility] Work Phone: Start: 03-16-2022 X-ray of left ankle ANKLE COMP LETE X-RAY 3 VIEWS [facility] Start: 03-16-2022 X-ray of left foot FOOT COMPLE TE X-RAY 3 VIEWS [facility] Start: 02-17-2022 Assay of prostate specific antigen total PSA total [facility] Start: 02-17-2022 Comprehensive metabo lic panel Comp [facility] Start: 02-17-2022 Hemoglobin glycosyla ramses a1c A1c [facility] Start: 02-17-2022 Lipid panel Lipid panel [facility] Start: 01-01-2022 Assay of glutamyltra se gamma GAMMA GT [facility] Start: 01-01-2022 Blood count complete automated CBC PLATELET COUNT; AUTOMATED [facility] Start: 01-01-2022 Comprehensive metabo lic panel CMP (comprehensive metabolic panel) [facility] Start: 01-01-2022 Hemoglobin glycosyla ramses a1c HEMOGLOBIN A1C [facility] Start: 09-17-2021 Cul bact xcpt urine blood/stool aerobic isol Wound culture and sensitivity [facility] Start: 09-17-2021 Dup-scan lxtr art/ar tl bpgs uni/lmtd study MARGA w/ segmental pressures and waveforms [facility] Start: 09-17-2021 Non-invas physiologi c std extremity art 2 level MARGA w/ segmental pressures and waveforms [facility] Start: 09-17-2021 Non-invasive physiologic study extremity 3 levls MARGA w/ segmental pressures and waveforms [facility] Start: 09-17-2021 Plain X-ray of toe TOES X-RAY 2-3 EWS [facility] Start: 08-18-2021 Blood count complete automated CBC & PLATELET COUNT; AUTOMATED [facility] Start: 08-18-2021 Comprehensive metabo lic panel CMP (comprehensive metabolic panel) [facility] Start: 08-18-2021 Hemoglobin glycosyla ramses a1c A1c [facility] Start: 08-18-2021 Lipid panel LIPID PROFILE [facility] Start: 07-19-2021 Assay of glutamyltra se gamma GAMMA GT [facility] Start: 07-19-2021 Basic metabolic pane l calcium total Chem 8 [facility] Start: 07-19-2021 Hemoglobin glycosyla ramses a1c HEMOGLOBIN A1C [facility] [employer] [facility] Start: 06-24-2021 Blood count complete automated CBC PLATELET COUNT; AUTOMATED [facility] Start: 06-24-2021 Comprehensive metabo lic panel Comp [facility] Start: 06-24-2021 Hemoglobin glycosyla ramses a1c A1c [facility] Start: 06-24-2021 Lipid panel Lipid panel [facility] [facility] Start: 03-12-2021 Assay of parathormone PTH-INTACT B [facility] [employer] [facility] Start: 03-12-2021 Assay of phosphorus inorganic Phosphorus, serum [facility] Start: 03-12-2021 Blood count complete automated CBC PLATELET COUNT; AUTOMATED [facility] Start: 03-12-2021 Comprehensive metabo lic panel CMP (comprehensive metabolic panel) [facility] Start: 03-12-2021 HbA1c (Bld) [Mass fraction] HEMOGLOBIN A1C [facility] Start: 03-12-2021 Hemoglobin glycosyla ramses a1c HEMOGLOBIN A1C [facility] Start: 12-25-2020 Creatinine measurement Creatinine mo nitoring [place] Start: 12-25-2020 Potassium monitoring Potassium monit oring [place] Start: 12-23-2020 Assay of prostate specific antigen total PSA total [facility] Start: 08-08-2020 Comprehensive metabo lic panel CMP (comprehensive metabolic panel) [facility] Start: 08-08-2020 HbA1c (Bld) [Mass fraction] HEMOGLOBIN A1C [facility] Start: 03-28-2020 Glucose quantitative blood xcpt reagent strip GLUCOSE 2 HR Post Prandial [facility] Start: 03-28-2020 HbA1c (Bld) [Mass fraction] HEMOGLOBIN A1C [facility] Start: 03-28-2020 Hepatic function panel LFT (li rosanne function test) [facility] Start: 03-24-2020 Annual Wellness Visi t (AWV) Annual Wellness Visit (AWV) [place] Start: 03-11-2020 Influenza vaccination [place], [place] Start: 12-28-2019 End: 12-28-2019 Hospital Encounter [facility] Comment on above: SHOULDER ARTHROSCOPY ROTATOR CUFF REPAIR, POSSIBLE BICEPS TENDONDESIS Start: 12-28-2019 End: 12-28-2019 Hospital Encounter [facility] Comment on above: SHOULDER ARTHROSCOPY ROTATOR CUFF REPAIR, POSSIBLE [facility] Start: 12-27-2019 Basic metabolic pane l calcium total Chem 8 [facility] Start: 12-27-2019 HbA1c (Bld) [Mass fraction] HEMOGLOBIN A1C [facility] Start: 11-27-2019 Comprehensive metabo lic panel Comp [facility] Start: 11-27-2019 HbA1c (Bld) [Mass fraction] A1c [facility] Start: 11-27-2019 Lipid panel Lipid panel [facility] Start: 08-28-2019 Basic metabolic pane l calcium total Chem 8 [facility] Start: 08-18-2019 Basic metabolic pane l calcium total Chem 8 [facility] Start: 08-18-2019 Gamma glutamyl transferase [Catalytic activity/Vol] GGT [facility] Start: 08-18-2019 HbA1c (Bld) [Mass fraction] HEMOGLOBIN A1C [facility] Start: 05-22-2019 Assay of prostate specific antigen total PSA total [facility] Start: 05-22-2019 Blood count complete automated CBC & PLATELET COUNT; AUTOMATED [facility] Start: 05-22-2019 Comprehensive metabo lic panel Comprehensive metabolic panel [facility] Start: 05-22-2019 Lipid panel Lipid panel [facility] Start: 05-22-2019 Urnls dip stick/tabl et rgnt auto w/o microscopy Urinalysis auto [facility] Start: 04-17-2019 Im adm prq id subq/i m njxs 1 vaccine Administration of single vaccine [facility] Start: 04-13-2019 Assay of glutamyltra se gamma GAMMA GT [facility] Start: 04-13-2019 Comprehensive metabo lic panel CMP (comprehensive metabolic panel) [facility] Start: 04-13-2019 Hemoglobin A1c/Hemoglobin.total mass fraction (Bld) HEMOGLOBIN A1C [facility] Start: 02-27-2019 Assay of prostate specific antigen total PSA total [facility] Start: 02-27-2019 Blood count complete automated CBC & PLATELET COUNT; AUTOMATED [facility] Start: 02-27-2019 Comprehensive metabo lic panel Comprehensive metabolic panel [facility] [facility] [employer] [facility] Start: 02-27-2019 Hemoglobin A1c/Hemoglobin.total mass fraction (Bld) Hgb A1c [facility] Start: 02-27-2019 Lipid panel Lipid panel [facility] [employer] [facility] Start: 01-02-2019 Medical nutrition re-assmt&ivntj indiv ea 15 m Medical nutrition therapy; re-assessment and intervention, individual, uuqg-af-qcra with the patient, each 15 minutes [facility] Start: 09-26-2018 Medical nutrition re-assmt&ivntj indiv ea 15 m Medical nutrition therapy; re-assessment and intervention, individual, sjtz-ss-byiq with the patient, each 15 minutes [facility] Start: 09-17-2018 Glucose mass conc GLUCOSE [facility] Start: 09-17-2018 Hemoglobin A1c/Hemoglobin.total mass fraction (Bld) HEMOGLOBIN A1C [facility] Start: 09-17-2018 Hepatic function panel Liver functio n panel [facility] Start: 07-27-2018 Medical nutrition re-assmt&ivntj indiv ea 15 m Medical nutrition therapy; re-assessment and intervention, individual, ozkf-rg-wgeg with the patient, each 15 minutes [facility] Start: 04-20-2018 Medical nutrition re-assmt&ivntj indiv ea 15 m Medical nutrition therapy; re-assessment and intervention, individual, obra-ts-pftk with the patient, each 15 minutes [facility] Start: 03-15-2018 Glucose mass conc GLUCOSE [facility] Start: 03-15-2018 Hemoglobin A1c/Hemoglobin.total mass fraction (Bld) HEMOGLOBIN A1C [facility] Start: 01-18-2018 Medical nutrition re-assmt&ivntj indiv ea 15 m Medical nutrition therapy; re-assessment and intervention, individual, tfvk-fz-iqgv with the patient, each 15 minutes [facility] Start: 12-13-2017 Hepatic function panel Liver functio n panel [facility] Start: 2014 Screening for malign ant neoplasm of colon Colon cancer screen colonoscopy [place], [place] Start: 2014 Shingles Vaccine (1 of 2) Shingles Vaccine (1 of 2) [place] Start: 2004 Diabetes screen Diabetes screen [place], [place] Start: 11-11-1983 DTaP/Tdap/Td vaccine (1 - Tdap) DTaP/Tdap/Td vaccine (1 - Tdap) [place] Start: 11-11-1979 HIV screening HIV screen [place], [place] Start: 1974 Lipid panel Lipid screen [place], [place] Start: 1970 Pneumococcal 0-64 ye ars Vaccine (1 of 1 - PPSV23) Pneumococcal 0-64 years Vaccine (1 of 1 - PPSV23) [place], [place] Start: 1964 Creatinine measurement Creatinine mo nitoring [place] Start: 1964 Hepatitis C screening Hepatitis C sc reen [place] Start: 1964 Potassium monitoring Potassium monit oring [place] Initiate Oxygen Ther apy Protocol Initiate Oxygen Therapy Protocol Respiratory Care Routine Daily until discontinued starting 12/28/2019 [place] Comment on above: Daily until disconti nued starting 12/28/2019 Patient Education Foot Fracture ED Minor Skin Adame ED [facility] Work Phone: Patient referral [facility] Work Phone: Phase I & II - meter ed glucose Phase I & II - metered glucose Point of Care Testing Routine As Needed until discontinued starting 12/28/2019 [facility] [place] Comment on above: As Needed until disc ontinued starting 12/28/2019 [facility] Immunizations Immunization Date Immunization Notes Care Provider Milla wolf 04-28-2022 COVID-19, Pfizer, 30mcg/0.3ml [facility] 04-28-2022 influenza, injectabl e, quadrivalent, contains preservative [facility] 12-05-2021 hepatitis A and hepatitis B vaccine [facility] 10-19-2021 hepatitis B vaccine, adult dosage [facility] 10-19-2021 zoster vaccine, live [facility] 06-15-2021 COVID-19, Moderna, 100mcg/0.5ml [facility] 10-14-2020 COVID-19, Moderna, 100mcg/0.5ml [facility] 09-12-2020 COVID-19, Moderna, 100mcg/0.5ml [facility] 04-08-2020 influenza virus vacc ine, unspecified formulation; Translations: [Administration of influenza virus vaccine] [facility] 04-08-2020 influenza, high dose seasonal, preservative-free; Translations: [FLU VACC PRSV FREE INC ANTIG] [facility] 04-17-2019 influenza, injectabl e, quadrivalent, contains preservative; Translations: [FLU VACC 4 FRANCISCO 3 YRS PLUS IM] [facility] 04-17-2019 influenza, seasonal, injectable [facility] 04-17-2019 IMMUNIZATION ADMIN; Translations: [IMMUNIZATION ADMIN] [facility] 04-20-2018 influenza, seasonal, injectable; Translations: [FLU VACCINE 3 YRS & > IM] [facility] 04-20-2018 IMMUNIZATION ADMIN; Translations: [IMMUNIZATION ADMIN] [facility] 04-05-2017 influenza, seasonal, injectable; Translations: [FLU VACCINE 3 YRS & > IM] [facility] 04-05-2017 IMMUNIZATION ADMIN; Translations: [IMMUNIZATION ADMIN] [facility] 03-31-2016 influenza, seasonal, injectable; Translations: [FLU VACCINE 3 YRS & > IM] [facility] 03-31-2016 IMMUNIZATION ADMIN; Translations: [IMMUNIZATION ADMIN] [facility] Payers Date Payer Category Payer Self-pay 2020 Medicaid 2020 Unknown 2019 Medicare [id number] 2015 Unknown [id number] [id number] 2015 Unknown [employer] [place] MEDICA[place] xxxxxxxxxxx 2015-Present [phone] CLAIMS DEPARTMENT [address] [place] [address] xxxxxxxxxxx [id number] 2014 Unknown [id number] 1964 Unknown [id number] [id number] 1964 Unknown [id number] 2.16.840.1.385757.3.579.2.173 1964 Unknown [id number] 2.16.840.1.250213.3.579.2.173 1964 Unknown [id number] 2.16.840.1.094033.3.579.2.173 1964 Unknown [id number] 2.16.840.1.663303.3.579.2.173 1964 Unknown [id number] 2.16.840.1.141559.3.579.2.173 1964 Unknown [id number] 2.16.840.1.540472.3.579.2.173 1964 Unknown [id number] 2.16.840.1.947202.3.579.2.196 1964 Unknown [id number] 2.16.840.1.901352.3.579.2.196 1964 Unknown [id number] 2.16.840.1.784925.3.579.2.196 1964 Unknown [id number] 2.16.840.1.835382.3.579.2.593 1964 Unknown [id number] 2.16.840.1.162752.3.579.2.593 1964 Unknown [id number] 2.16.840.1.771223.3.579.2.593 1959 Medicaid [id number] [id number] 1959 Unknown [id number] [id number] Unknown Daniel BC/BS [id number] Unknown [id number] 2.16.840.1.446088.3.579.2.531 Unknown [id number] 2.16.840.1.118806.3.579.2.531 Unknown [id number] 2.16.840.1.380252.3.579.2.531 Unknown [id number] 2.16.840.1.334383.3.579.2.531 Unknown [id number] [id number] Social History Date Type Detail Facility Start: [facility] Start: 1-2 cups a day [facility] Start: 12-18-2019 End: 01-01-2020 Tobacco smoking status NHIS Current every day smoker [place] History of tobacco use Cigarette Smoker [place] Start: 12-18-2019 End: 01-01-2020 Cigarettes smoked current (pack per day) - Reported [place] Start: 12-18-2019 End: 01-01-2020 Alcohol intake Current drinker of alcohol (finding) [place] Start: 12-17-2019 Alcohol Comment 3X WEEKLY [place], [place] Sex Assigned At Not on file [place] Exposure to SARS-CoV -2 (event) Unable to assess [place] Start: 01-01-2020 Tobacco use and exposure Never used [place] Exposure to SARS-CoV -2 (event) Not sure [place] Start: *Tobacco [facility] Start: 04-01-2022 End: 05-27-2022 Tobacco smoking status NHIS Smoker (finding) [facility] Start: 1965 Sex Assigned At Male [facility] Tobacco smoking status No Smokin g Status Entered [facility] Sex Assigned At Male [facility] Medical Equipment Procedure Code Equipment Code Equipment Origin al Text Equipment Identifier Dates [place] Sut Corks crew Biocomposite 5.5mm [id number] Start: 12-28-2019 [place] Suture [employer]ock 4.75x19.1 Biocomposite Min 5ea [id number] [...] authenticated by: SASHA FLAHERTY Date: 2022-07-28 16:42 [facility] 07-28-2022 Note PROCEDURE: XR ANKLE RT MIN [...] authenticated by: SASHA FLAHERTY Date: 2022-07-28 16:42 [facility] 06-24-2022 Note PROCEDURE: XR ANKLE [...] authenticated by: TESS JHAVERI Date: 2022-06-24 06:20 [facility] 06-24-2022 Note PROCEDURE: XR ANKLE [...] authenticated by: TESS JHAVERI Date: 2022-06-24 06:20 [facility] 05-05-2022 Progress note Note Date/Time May 05, 2022 2:50pm [facility] [address] [place] [address] Wound Center Provider Note Signed Patient: Geremias Melchor MR#: [id number] : 1965 Acct:[id number] Age/Sex: 56 / M Copies to: NON STAFF Fariha Novak APRN~ HPI Date of Visit Date of Visit: Date of Service: 05/05/2022 Time of Service: 14:47 Narrative HPI: 04/14/22 Geremias is a 56-year-old male presenting to [facility] wound care program for an initial visit [...] 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 [place] and therefore 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 his 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 with Charcot [...] wound start?: March 2022 Mode of Arrival/ High Pressure Kettle Operator: Personal vehicle Lives with:: Alone Appetite Description: [...] Appearance: Beefy Red, Epithelial Tissue or Bridge, [place] and Yellow Percent of Wound Bed Granulated/Red: [...] 15 Dictated By: Fariha Novak APRN DD/ [id number] Signed By: <Electronically signed by RADHA Novak> 05/05/22 1450 [facility] Work Phone: 1(443) 988-476910-05-2022 Progress note Author Fariha Novak [facility] April 14, 2022 2:46pm Note Date/Time April 14, 2022 2: 46pm [facility] [address] [place] [address] Wound Center Provider Note Signed Patient: Geremias Melchor MR#: [id number] : 1965 Acct:[id number] Age/Sex: 56 / M Copies to: NON STAFF Fariha Novak APRN~ HPI Date of Visit Date of Visit: Date of Service: 04/14/2022 Time of Service: 14:37 Narrative HPI: 04/14/22 Geremias is a 56-year-old male presenting to [facility] wound care program for an initial visit [...] 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 [place] and therefore 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 his 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 with 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 [...] wound start?: March 2022 Mode of Arrival/ High Pressure Kettle Operator: Personal vehicle Lives with:: Alone Appetite Description: [...] w/o penetration to deeper layers Bed Appearance: [place] and Yellow Percent of Wound Bed Granulated/Red: 90 Percent of Devitalized: 10 Length (cm): 0.5 Width (cm): 0.6 Depth (cm): 0.1 CM Sq: 0.300 Surrounding Tissue Appearance: Callous Surrounding Tissue Temp: Warm Drainage Amount: Small Drainage Description: Serosanguineous Drainage Odor: No Odor Left Plantar Great Toe: Type: Diabetic Ulcer Diabetic Ulcer Grading: Superficial ulcer of skin w/o penetration to deeper layers Bed Appearance: [place] and Yellow Percent of Wound Bed Granulated/Red: 50 Percent of Devitalized: 50 Length (cm): 2.3 Width (cm): 1.5 Depth (cm): 0.1 CM Sq: 3.450 Surrounding Tissue Appearance: Callous Surrounding Tissue Temp: Warm Drainage Amount: Small Drainage Description: Serosanguineous Drainage Odor: No Odor Right Plantar Great Toe: Type: Diabetic Ulcer Diabetic Ulcer Grading: Superficial ulcer of skin w/o penetration to deeper layers Bed Appearance: [place] and Yellow Percent of Wound Bed Granulated/Red: 10 Percent of Devitalized: 90 Length (cm): 2.1 Width (cm): 1.1 Depth (cm): 0.1 CM Sq: 2.310 Surrounding Tissue Appearance: Callous Surrounding Tissue Temp: Warm Drainage Amount: Small Drainage Description: Serosanguineous Drainage Odor: No Odor Right Posterior Heel: Type: Diabetic Ulcer Diabetic Ulcer Grading: Superficial ulcer of skin w/o penetration to deeper layers Bed Appearance: [place] and Yellow Percent of Wound Bed Granulated/Red: [...] By: <Electronically signed by RADHA Novak> 04/14/22 5027 [facility] Work Phone: [phone]) 758-941404-06-2022 NotePreliminary Technologist Report Lower arterial segmental doppler evaluation was performed. Please see the information that is listed below. Cleaning And Maintenance Worker: Cici Patel POWDER OPERATOR/RVT Radiologist Report SEGMENTAL PRESSURES STUDY: CLINICAL INFORMATION: [...] is Signed, Electronically Signed in Other Vendor System)[facility] No data available for this section [facility] noteNo assessment information available [facility] Work Phone: Evaluation note* Diagnosis Onset Date Resolution Status Diabetic foot ulcer acute Diabetes chronic Hyperlipidemia chronic Neuropathy chronic Tobacco use chronic [facility] Work Phone: Evaluation note* Diagnosis Onset Date Resolution Status Diabetes chronic Diabetic foot ulcer chronic Hyperlipidemia chronic Neuropathy chronic Tobacco use chronic [facility] Work Phone: Evaluation note* Diagnosis Onset Date Resolution Status Diabetes chronic Hyperlipidemia chronic Neuropathy chronic Tobacco use chronic Diabetic foot ulcer resolved [facility] Work Phone: Hospital Discharge instructions Additional Instructions Return for worsening symptoms Follow-[facility] Work Phone: Hospital Discharge instructions No data available for this section [facility] Author Fariha Novak [facility] May 27, 2022 2:46pm Note Date/Time May 27, 2022 2:46pm [facility] [address] [place] [address] Wound Center Provider Note Signed Patient: Geremias Melchor MR#: [id number] : 1965 Acct:[id number] Age/Sex: 56 / M Copies to: NON STAFF Fariha Novak APRN~ HPI Date of Visit Date of Visit: Date of Service: 05/27/2022 Time of Service: 14:43 Narrative HPI: 04/14/22 Geremias is a 56-year-old male presenting to [facility] wound care program for an initial visit [...] 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 [place] and therefore 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 his concerns with [place] [...] wound start?: March 2022 Mode of Arrival/ High Pressure Kettle Operator: Personal vehicle Lives with:: Alone Appetite Description: [...] 10 Dictated By: Fariha Novak APRN DD/ 42 Signed By: <Electronically signed by RADHA Novak> 05/27/22 1446 [facility] Work Phone: Progress note No data available for this section [facility] Summary Purpose Family History Relationship Condition Age at Onset Recorded Date/T shannan family member Diabetes mellitus Unknown Advance Directives Documents on File Type Date Recorded Patient Vending Stand Supervisor Expl anation Advance Directives and Living Will Power of Dermatology Sales Representative Documents on File Type Date Recorded Patient Vending Stand Supervisor Expl anation Advance Directives and Living Will Power of Dermatology Sales Representative Documents on File Type Date Recorded Patient Vending Stand Supervisor Expl anation ACP-Advance Directive ACP-Power of Dermatology Sales Representative Advance Directive Response Recorded Date/ Time Advance [...] for any questions regarding your surgery. Call [phone] forurgent questions after 5PM until 8AM 10. [...] MRI SHOULDER RIGHT WO CONTRAST Mignon Townsend, HEM INSPECTOR - BOAT PATCHER [employer] [address] [place] [address] Status Reason Specialty Diagnoses / Procedures Referre d By Contact Referred To Contact Open Radiology Diagnoses Right knee pain, unspecified chronicity Procedures MRI KNEE RIGHT WO CONTRAST Mignon Townsend, HEM INSPECTOR - BOAT PATCH[employer] [address] [place] [address] Chief Complaint and Reason for Visit Chief [...] section and content) DATE CREATED AUTHOR 11/15/2018 [facility] DATE CREATED AUTHOR AUTHOR'S ORGANIZ ATION 03/28/2020 [facility] DATE CREATED AUTHOR AUTHOR'S ORGANIZ ATION 06/21/2020 [facility] DATE CREATED AUTHOR AUTHOR'S ORGANIZ ATION 07/19/2022 [facility] DATE CREATED AUTHOR AUTHOR'S ORGANIZ ATION 09/10/2022 [facility] DATE CREATED AUTHOR AUTHOR'S ORGANIZ ATION 2022 [facility] DATE CREATED AUTHOR AUTHOR'S ORGANIZ ATION 06/18/2023 [facility] Reason for Visit (unrecogniz ed section and content) Status Reason Specialty Diagnoses / Procedures Referre d By Contact Referred To Contact Diagnoses Unspecified rotator cuff tear or rupture of right shoulder, not specified as traumatic RIGHT SHOULDER ROTATOR CUFF TEAR Procedures MO SHLDR ARTHROSCOP,SURG,W/ROTAT CUFF REPR SHOULDER ARTHROSCOPY ROTATOR CUFF REPAIR, POSSIBLE BICEPS TENDONDESIS Tess Escalona MD [address] [place] [address] [facility] Status Reason Specialty Diagnoses / Procedures Referre d By Contact Referred To Contact Closed Radiology Diagnoses Pain in right shoulder Procedures HC MRI-UPPER EXT JNT WO CONT Tess Escalona MD [address] [facility] [address] [place] [address] [facility] [address] [place] [address] Status Reason Specialty Diagnoses / Procedures Referre d By Contact Referred To Contact Closed Radiology Diagnoses Pain in right knee Procedures [facility] MRI LOWER EXTREM JT, W/O CONTRAST Mignon Townsend, HEM INSPECTOR - BOAT P[employer] [address] [place] [address] [facility] [address] [place] [address] Care Teams (unrecognized sec tion and content) [...] Primary Care Provider Active Nayla Oakes DPM MS Attending Provider Active Team Status: Inactive Member [...] BE BASED ON THE PRIMARY CLINICAL RECORDS. [facility]. provides no warranty or guarantee of the accuracy or completeness of information in this document.
== END 2023-07-19 14:38 | disposition home or self-care (01) ==
LOC: WC 14:37
PROVIDERS: Visit Provider Podiatrist Foot & Ankle Surgery
DX: M25.571 Pain in right ankle and joints of right foot (principal); M79.671 Pain in right foot; L97.312 Non-pressure chronic ulcer of right ankle with fat layer exposed
CPT/HCPCS: 29445; 73610; 73630

== ENCOUNTER 2023-07-26 15:27 | Outpatient (OUT) | payer MEDICARE, MEDICAID, SELFPAY | END 2023-07-26 15:28 | disposition home or self-care (01) | LOC: WC 15:27 | PROVIDERS: Visit Provider Podiatrist Foot & Ankle Surgery | DX: L97.312 Non-pressure chronic ulcer of right ankle with fat layer exposed (principal) | CPT/HCPCS: 29445 ==

== ENCOUNTER 2023-08-03 14:57 | Outpatient (OUT) | payer MEDICARE, MEDICAID, SELFPAY | END 2023-08-03 14:58 | disposition home or self-care (01) | LOC: WC 14:57 | PROVIDERS: Visit Provider Podiatrist Foot & Ankle Surgery | DX: L97.312 Non-pressure chronic ulcer of right ankle with fat layer exposed (principal) | CPT/HCPCS: 29445 ==

== ENCOUNTER 2023-08-09 14:06 | Outpatient (OUT) | payer MEDICARE, MEDICAID, SELFPAY ==
--- NOTE | 2023-08-09 | XR_ITS ---
The [address] [address] Patient Name: GEREMIAS ARAYA MRN: [id number] date: 1965 Sex: M Assigned Patient Location: Current Patient Location: Accession/Order Number: [id number] Exam Date: 08/09/2023 14:15 Report Date: 08/09/2023 14:56 At the request of: NAYLA OAKES Procedure: XR ankle RT min 3V PROCEDURE: XR ankle RT min 3V, XR foot RT min 3V COMPARISON: 07/19/2023 HISTORY: RIGHT ANKLE PAIN FINDINGS: BONES:Stable ankle fusion utilizing a retrograde intramedullary isabela extending through the calcaneus, posterior talus and the tibia, patent proximally and distally. 2 additional screws across the tibiotalar joint. Remote resection of the distal fibula. There is marked plantar rotation of the hindfoot in relation to the midfoot which is displaced cranially 2.5 cm in relation to the talus. No new lytic or sclerotic changes. Stable degenerative changes. SOFT TISSUES:Diffuse soft tissue swelling. EFFUSION:None visible. OTHER: Negative. XR/XR ankle RT min 3V IMPRESSION: Stable degenerative and postsurgical changes with no plain film evidence of osteomyelitis Electronically authenticated by: SASHA FLAHERTY Date: 08/09/2023 14:56
--- NOTE | 2023-08-09 | XR_ITS ---
The [address] [address] Patient Name: GEREMIAS ARAYA MRN: [id number] date: 1965 Sex: M Assigned Patient Location: Current Patient Location: Accession/Order Number: [id number] Exam Date: 08/09/2023 14:15 Report Date: 08/09/2023 14:56 At the request of: NAYLA OAKES Procedure: XR foot RT min 3V PROCEDURE: XR ankle RT min 3V, XR foot RT min 3V COMPARISON: 07/19/2023 HISTORY: RIGHT ANKLE PAIN FINDINGS: BONES:Stable ankle fusion utilizing a retrograde intramedullary isabela extending through the calcaneus, posterior talus and the tibia, patent proximally and distally. 2 additional screws across the tibiotalar joint. Remote resection of the distal fibula. There is marked plantar rotation of the hindfoot in relation to the midfoot which is displaced cranially 2.5 cm in relation to the talus. No new lytic or sclerotic changes. Stable degenerative changes. SOFT TISSUES:Diffuse soft tissue swelling. EFFUSION:None visible. OTHER: Negative. XR/XR foot RT min 3V IMPRESSION: Stable degenerative and postsurgical changes with no plain film evidence of osteomyelitis Electronically authenticated by: SASHA FLAHERTY Date: 08/09/2023 14:56
== END 2023-08-09 14:07 | disposition home or self-care (01) ==
LOC: WC 14:06
PROVIDERS: Visit Provider Podiatrist Foot & Ankle Surgery
DX: M25.571 Pain in right ankle and joints of right foot (principal); M79.671 Pain in right foot; L97.312 Non-pressure chronic ulcer of right ankle with fat layer exposed
CPT/HCPCS: 11042; 29445; 73610; 73630

== ENCOUNTER 2023-08-17 14:45 | Outpatient (OUT) | payer MEDICARE, MEDICAID, SELFPAY | END 2023-08-17 14:46 | disposition home or self-care (01) | LOC: WC 14:45 | PROVIDERS: Visit Provider Podiatrist Foot & Ankle Surgery | DX: L97.312 Non-pressure chronic ulcer of right ankle with fat layer exposed (principal) | CPT/HCPCS: 29445 ==

== ENCOUNTER 2023-08-23 16:23 | Outpatient (OUT) | payer MEDICARE, MEDICAID, SELFPAY | END 2023-08-23 16:24 | disposition home or self-care (01) | LOC: WC 16:23 | PROVIDERS: Visit Provider Podiatrist Foot & Ankle Surgery | DX: L97.312 Non-pressure chronic ulcer of right ankle with fat layer exposed (principal) | CPT/HCPCS: 11042; 29445 ==

== ENCOUNTER 2023-08-30 15:01 | Outpatient (OUT) | payer MEDICARE, MEDICAID, SELFPAY ==
--- NOTE | 2023-08-30 | XR_ITS ---
The [address] [address] Patient Name: GEREMIAS ARAYA MRN: [id number] date: 1965 Sex: M Assigned Patient Location: Current Patient Location: Accession/Order Number: [id number] Exam Date: 08/30/2023 15:05 Report Date: 08/31/2023 07:45 At the request of: SHIRLEY JONES Procedure: XR ankle RT min 3V PROCEDURE: XR ankle RT min 3V HISTORY: RIGHT ANKLE PAIN COMPARISON: None. FINDINGS: BONES:Ankle and hindfoot fusion via intramedullary isabela and locking screws. Stable slight protrusion of the calcaneal locking screw into the soft tissues posterior to the calcaneus. Prior resection of distal fibula. SOFT TISSUES:No visible soft tissue swelling. EFFUSION:None visible. OTHER: Negative. XR/XR ankle RT min 3V IMPRESSION: 1. Stable surgical changes without evidence of hardware failure or change in alignment. 2. Stable mild backing-out of the posterior calcaneal locking screw. Electronically authenticated by: TESS JHAVERI Date: 08/31/2023 07:45
== END 2023-08-30 15:02 | disposition home or self-care (01) ==
LOC: WC 15:01
PROVIDERS: Visit Provider Podiatrist Foot & Ankle Surgery
DX: L97.312 Non-pressure chronic ulcer of right ankle with fat layer exposed (principal)
CPT/HCPCS: 11042; 73610; A6213

== ENCOUNTER 2023-09-13 15:14 | Outpatient (OUT) | payer MEDICARE, SELFPAY ==
--- NOTE | 2023-09-13 | XR_ITS ---
The [address] [address] Patient Name: GEREMIAS ARAYA MRN: [id number] date: 1965 Sex: M Assigned Patient Location: Current Patient Location: Accession/Order Number: [id number] Exam Date: 09/13/2023 15:15 Report Date: 09/13/2023 22:46 At the request of: SHIRLEY JONES Procedure: XR ankle RT min 3V EXAM: XR ankle RT min 3V 09/13/2023 COMPARISON STUDY: Right ankle 09/07/2013 FINDINGS: Frontal, oblique and lateral views for 3 views obtained. HISTORY: RIGHT ANKLE PAIN XR/XR ankle RT min 3V IMPRESSION: 1. Redemonstration of distal fibular osteotomy. Postoperative changes from hindfoot arthrodesis are also again identified. 2. Intramedullary isabela and screw fixation involving mid to distal tibia crossing the tibiotalar articulation into the calcaneus fixated by a horizontally oriented intracortical screw. There are 2 obliquely oriented screws crossing the talonavicular articulation as well. Hardware remains well seated. 3. Midfoot collapse is again identified. Significant multifocal arthritic changes involving articulations of the midfoot and hindfoot are again identified. Talocalcaneal dislocation is again identified. 4. There is stable deformity of the navicular as well as adjacent scattered midfoot well corticated ossicles again noted. 5. Overall no significant interval change. Electronically authenticated by: VAIBHAV CASTRO Date: 09/13/2023 22:46
--- NOTE | 2023-09-13 | XR_ITS ---
The [address] [address] Patient Name: GEREMIAS ARAYA MRN: [id number] date: 1965 Sex: M Assigned Patient Location: Current Patient Location: Accession/Order Number: [id number] Exam Date: 09/13/2023 15:15 Report Date: 09/14/2023 07:37 At the request of: SHIRLEY JONES Procedure: XR foot RT min 3V PROCEDURE: XR foot RT min 3V COMPARISON: 08/09/2023 HISTORY: RIGHT FOOT PAIN FINDINGS: BONES:Stable ankle fusion utilizing intramedullary nail and screws. Marked but stable plantar rotation of the hindfoot with cranial subluxation of the midfoot in relation to the talus. Underlying degenerative changes with joint space narrowing marginal osteophyte formation SOFT TISSUES:Negative. No visible soft tissue swelling. EFFUSION:None visible. OTHER: Negative. XR/XR foot RT min 3V IMPRESSION: Stable ankle fusion with no mechanical failure Electronically authenticated by: SASHA FLAHERTY Date: 09/14/2023 07:37
== END 2023-09-13 15:15 | disposition home or self-care (01) ==
LOC: WC 15:14
PROVIDERS: Visit Provider Podiatrist Foot & Ankle Surgery
DX: M79.671 Pain in right foot (principal); M25.571 Pain in right ankle and joints of right foot; L97.312 Non-pressure chronic ulcer of right ankle with fat layer exposed
CPT/HCPCS: 11042; 73610; 73630

== ENCOUNTER 2023-10-04 15:57 | Outpatient (OUT) | payer MEDICARE, SELFPAY ==
--- NOTE | 2023-10-04 | XR_ITS ---
The [address] [address] Patient Name: GEREMIAS ARAYA MRN: [id number] date: 1965 Sex: M Assigned Patient Location: Current Patient Location: Accession/Order Number: [id number] Exam Date: 10/04/2023 15:20 Report Date: 10/04/2023 16:42 At the request of: SHIRLEY JONES Procedure: XR foot RT min 3V PROCEDURE: XR foot RT min 3V, XR ankle RT min 3V COMPARISON: 09/13/2023 HISTORY: RIGHT FOOT PAIN FINDINGS: BONES:Stable ankle fusion utilizing a retrograde intramedullary nail and distally. 2 additional screws traverse the tibiotalar joint. There is plantar rotation of the hindfoot with dorsal medial displacement of the midfoot, in the navicular articulates with the anterior tibiotalar joint. Degenerative changes with joint space narrowing. SOFT TISSUES:Diffuse soft tissue swelling EFFUSION:None visible. OTHER: Negative. XR/XR foot RT min 3V IMPRESSION: Stable ankle fusion with degenerative changes and soft tissue swelling Electronically authenticated by: SASHA FLAHERTY Date: 10/04/2023 16:42
--- NOTE | 2023-10-04 | XR_ITS ---
The [address] [address] Patient Name: GEREMIAS ARAYA MRN: [id number] date: 1965 Sex: M Assigned Patient Location: Current Patient Location: Accession/Order Number: [id number] Exam Date: 10/04/2023 15:20 Report Date: 10/04/2023 16:42 At the request of: SHIRLEY JONES Procedure: XR ankle RT min 3V PROCEDURE: XR foot RT min 3V, XR ankle RT min 3V COMPARISON: 09/13/2023 HISTORY: RIGHT FOOT PAIN FINDINGS: BONES:Stable ankle fusion utilizing a retrograde intramedullary nail and distally. 2 additional screws traverse the tibiotalar joint. There is plantar rotation of the hindfoot with dorsal medial displacement of the midfoot, in the navicular articulates with the anterior tibiotalar joint. Degenerative changes with joint space narrowing. SOFT TISSUES:Diffuse soft tissue swelling EFFUSION:None visible. OTHER: Negative. XR/XR ankle RT min 3V IMPRESSION: Stable ankle fusion with degenerative changes and soft tissue swelling Electronically authenticated by: SASHA FLAHERTY Date: 10/04/2023 16:42
== END 2023-10-04 15:58 | disposition home or self-care (01) ==
LOC: WC 15:57
PROVIDERS: Visit Provider Podiatrist Foot & Ankle Surgery
DX: L97.312 Non-pressure chronic ulcer of right ankle with fat layer exposed (principal); Z98.890 Other specified postprocedural states; M25.471 Effusion, right ankle; M25.474 Effusion, right foot
CPT/HCPCS: 11042; 73610; 73630; A6213

== ENCOUNTER 2023-10-25 15:16 | Outpatient (OUT) | payer MEDICARE, SELFPAY ==
--- NOTE | 2023-10-25 | XR_ITS ---
[address] [address] Patient Name: GEREMIAS ARAYA MRN: [id number] date: 1965 Sex: M Assigned Patient Location: Current Patient Location: Accession/Order Number: [id number] Exam Date: 10/25/2023 15:17 Report Date: 10/26/2023 08:07 At the request of: SHIRLEY JONES Procedure: XR ankle RT min 3V PROCEDURE: XR ankle RT min 3V, XR foot RT min 3V COMPARISON: 10/04/2023 HISTORY: RIGHT ANKLE PAIN FINDINGS: BONES:Stable ankle fusion with 2 screws across the tibiotalar joint. Intramedullary isabela extending from the calcaneus to the posterior talus into the tibia, patent proximally and distally. There is plantar rotation of the hindfoot with cranial displacement of the midfoot articulating with the talar dome, stable. There is medial displacement of the midfoot in relation to the hindfoot, stable. Remote resection of the fibula. SOFT TISSUES:Moderate soft tissue swelling EFFUSION:None visible. OTHER: Negative. XR/XR ankle RT min 3V IMPRESSION: Stable ankle fusion Electronically authenticated by: SASHA FLAHERTY Date: 10/26/2023 08:07
--- NOTE | 2023-10-25 | XR_ITS ---
[address] [address] Patient Name: GEREMIAS ARAYA MRN: [id number] date: 1965 Sex: M Assigned Patient Location: Current Patient Location: Accession/Order Number: [id number] Exam Date: 10/25/2023 15:17 Report Date: 10/26/2023 08:07 At the request of: SHIRLEY JONES Procedure: XR foot RT min 3V PROCEDURE: XR ankle RT min 3V, XR foot RT min 3V COMPARISON: 10/04/2023 HISTORY: RIGHT ANKLE PAIN FINDINGS: BONES:Stable ankle fusion with 2 screws across the tibiotalar joint. Intramedullary isabela extending from the calcaneus to the posterior talus into the tibia, patent proximally and distally. There is plantar rotation of the hindfoot with cranial displacement of the midfoot articulating with the talar dome, stable. There is medial displacement of the midfoot in relation to the hindfoot, stable. Remote resection of the fibula. SOFT TISSUES:Moderate soft tissue swelling EFFUSION:None visible. OTHER: Negative. XR/XR foot RT min 3V IMPRESSION: Stable ankle fusion Electronically authenticated by: SASHA FLAHERTY Date: 10/26/2023 08:07
== END 2023-10-25 15:17 | disposition home or self-care (01) ==
LOC: WC 15:16
PROVIDERS: Visit Provider Podiatrist Foot & Ankle Surgery
DX: M79.671 Pain in right foot (principal); M25.571 Pain in right ankle and joints of right foot; L97.312 Non-pressure chronic ulcer of right ankle with fat layer exposed
CPT/HCPCS: 11042; 73610; 73630; A6213

== ENCOUNTER 2023-11-15 16:00 | Outpatient (OUT) | payer MEDICARE, SELFPAY ==
--- NOTE | 2023-11-15 | XR_ITS ---
The [address] [address] Patient Name: GEREMIAS ARAYA MRN: [id number] date: 1965 Sex: M Assigned Patient Location: Current Patient Location: Accession/Order Number: [id number] Exam Date: 11/15/2023 15:00 Report Date: 11/15/2023 17:10 At the request of: SHIRLEY JONES Procedure: XR foot RT min 3V EXAM: XR foot RT min 3V HISTORY: RIGHT FOOT PAIN COMPARISON: 10/25/2023 TECHNIQUE: 4 view study FINDINGS: Again, there are findings associated with a ankle/hindfoot arthrodesis. The long tibial nail is again stabilized distally with a calcaneal interlocking screw. 2 screws again crisscross the ankle mortise. The ankle mortise joint remains visible. The posterior subtalar joint is partially obscured by the tibial nail. Increased inclination angle of the talus with dorsal dislocation of the navicular on the talus. The cuboid has been resected. Other bones of the midfoot and forefoot are intact. There is soft tissue swelling about the hindfoot and midfoot. XR/XR foot RT min 3V IMPRESSION: Stable findings associated with ankle and hindfoot arthrodesis. Stable dorsal dislocation of the mid foot on the hindfoot. Soft tissue swelling. No convincing evidence for osteomyelitis. Electronically authenticated by: Ashlie DE LUNA Date: 11/15/2023 17:10
--- NOTE | 2023-11-15 | XR_ITS ---
The [address] [address] Patient Name: GEREMIAS ARAYA MRN: [id number] date: 1965 Sex: M Assigned Patient Location: Current Patient Location: Accession/Order Number: [id number] Exam Date: 11/15/2023 15:00 Report Date: 11/15/2023 17:03 At the request of: SHIRLEY JONES Procedure: XR ankle RT min 3V EXAM: XR ankle RT min 3V HISTORY: RIGHT ANKLE PAIN COMPARISON: 10/25/2023 TECHNIQUE: 3 view study FINDINGS: Again, there are findings associated with an ankle/hindfoot fusion with instrumentation. The joint at the ankle mortise remains visible. The subtalar joint is partially obscured by the intramedullary nail. 2 interlocking screws are seen within the distal tibia shaft. A single interlocking screw is seen at the level of the calcaneus. There are 2 crisscrossing screws which bridge the ankle mortise. A rocker bottom deformity of the midfoot is noted. Again, the distal fibula has been resected. Soft tissue swelling about the ankle/hindfoot is noted. XR/XR ankle RT min 3V IMPRESSION: Stable findings associated with ankle/hindfoot fusion with instrumentation. Electronically authenticated by: Ashlie DE LUNA Date: 11/15/2023 17:03
== END 2023-11-15 16:01 | disposition home or self-care (01) ==
LOC: WC 16:00
PROVIDERS: Visit Provider Podiatrist Foot & Ankle Surgery
DX: L97.312 Non-pressure chronic ulcer of right ankle with fat layer exposed (principal)
CPT/HCPCS: 73610; 73630; G0463

== ENCOUNTER 2024-02-14 14:43 | Outpatient (OUT) | payer MEDICARE, MEDICAID, SELFPAY ==
--- NOTE | 2024-02-14 | XR_ITS ---
The [address] [address] Patient Name: GEREMIAS ARAYA MRN: [id number] date: 1965 Sex: M Assigned Patient Location: Current Patient Location: Accession/Order Number: [id number] Exam Date: 02/14/2024 14:43 Report Date: 02/16/2024 06:47 At the request of: LIONEL STEWARD Procedure: XR foot RT min 3V PROCEDURE: XR foot RT min 3V HISTORY: RIGHT FOOT PAIN COMPARISON: XR foot right 11/15/2023 FINDINGS: BONES:Stable advanced degenerative changes the midfoot with resection of lateral cuneiform and cuboid. Extreme caudal angulation of the talus and elevation of the midfoot bones in relation to the talus. Mechanical fusion of the ankle joint and hindfoot via intramedullary isabela and screws. SOFT TISSUES:No visible soft tissue swelling. EFFUSION:None visible. OTHER: Negative. XR/XR foot RT min 3V IMPRESSION: Stable surgical changes and advanced degenerative changes. Electronically authenticated by: TESS JHAVERI Date: 02/16/2024 06:47
== END 2024-02-14 14:44 | disposition home or self-care (01) ==
LOC: WC 14:43
PROVIDERS: Visit Provider Physician Assistant
DX: M79.671 Pain in right foot (principal); Z98.890 Other specified postprocedural states; M14.671 Charcot's joint, right ankle and foot; M21.6X9 Other acquired deformities of unspecified foot; L97.312 Non-pressure chronic ulcer of right ankle with fat layer exposed
CPT/HCPCS: 73630; G0463

== ENCOUNTER 2024-08-15 15:12 | Outpatient (OUT) | payer MEDICARE, MEDICAID, SELFPAY ==
--- NOTE | 2024-08-15 15:13 | XR_ITS ---
The [address] [address] Patient Name: GEREMIAS ARAYA MRN: [id number] date: 1965 Sex: M Assigned Patient Location: [facility] Current Patient Location: Accession/Order Number: [id number] Exam Date: 08/15/2024 15:20 Report Date: 08/17/2024 11:33 At the request of: NAYLA OAKES Procedure: XR ankle RT min 3V PROCEDURE: XR ankle RT min 3V, XR foot RT min 3V COMPARISON: 11/15/2023 HISTORY: Right Foot And Ankle Pain FINDINGS: BONES:Stable ankle fusion utilizing a retrograde intramedullary. No proximally and distally. Some lucency surrounding the distal nail and calcaneal fixation screw, stable from the prior exam. No significant bony bridging across the tibiotalar or talonavicular joints. There is dorsal displacement of the midfoot in relation to the forefoot, unchanged with degenerative changes. SOFT TISSUES:Negative. No visible soft tissue swelling. EFFUSION:None visible. OTHER: Negative. XR/XR ankle RT min 3V IMPRESSION: Stable exam. No interval change or increase in bony bridging Electronically authenticated by: SASHA FALHERTY Date: 08/17/2024 11:33
--- NOTE | 2024-08-15 15:13 | XR_ITS ---
The [address] [address] Patient Name: GEREMIAS ARAYA MRN: [id number] date: 1965 Sex: M Assigned Patient Location: [facility] Current Patient Location: Accession/Order Number: [id number] Exam Date: 08/15/2024 15:20 Report Date: 08/17/2024 11:33 At the request of: NAYLA OAKES Procedure: XR foot RT min 3V PROCEDURE: XR ankle RT min 3V, XR foot RT min 3V COMPARISON: 11/15/2023 HISTORY: Right Foot And Ankle Pain FINDINGS: BONES:Stable ankle fusion utilizing a retrograde intramedullary. No proximally and distally. Some lucency surrounding the distal nail and calcaneal fixation screw, stable from the prior exam. No significant bony bridging across the tibiotalar or talonavicular joints. There is dorsal displacement of the midfoot in relation to the forefoot, unchanged with degenerative changes. SOFT TISSUES:Negative. No visible soft tissue swelling. EFFUSION:None visible. OTHER: Negative. XR/XR foot RT min 3V IMPRESSION: Stable exam. No interval change or increase in bony bridging Electronically authenticated by: SASHA FLAHERTY Date: 08/17/2024 11:33
== END 2024-08-15 15:13 | disposition home or self-care (01) ==
LOC: RAD 15:12
PROVIDERS: Visit Provider Podiatrist Foot & Ankle Surgery
DX: M25.571 Pain in right ankle and joints of right foot (principal); M24.671 Ankylosis, right ankle
CPT/HCPCS: 73610; 73630

== ENCOUNTER 2024-08-28 15:03 | Outpatient (OUT) | payer MEDICARE, MEDICAID, SELFPAY | END 2024-08-28 15:04 | disposition home or self-care (01) | LOC: WC 15:03 | PROVIDERS: Visit Provider Physician Assistant | DX: E11.621 Type 2 diabetes mellitus with foot ulcer (principal); L97.422 Non-pressure chronic ulcer of left heel and midfoot with fat layer exposed | CPT/HCPCS: 11043 ==

== ENCOUNTER 2024-09-12 15:07 | Outpatient (OUT) | payer MEDICARE, MEDICAID, SELFPAY | END 2024-09-12 15:08 | disposition home or self-care (01) | LOC: WC 15:07 | PROVIDERS: Visit Provider Physician Assistant | DX: E11.621 Type 2 diabetes mellitus with foot ulcer (principal); L97.422 Non-pressure chronic ulcer of left heel and midfoot with fat layer exposed | CPT/HCPCS: 11043 ==

== ENCOUNTER 2024-10-03 15:06 | Outpatient (OUT) | payer MEDICARE, MEDICAID, SELFPAY | END 2024-10-03 15:07 | disposition home or self-care (01) | LOC: WC 15:07 | PROVIDERS: Visit Provider Physician Assistant | DX: E11.621 Type 2 diabetes mellitus with foot ulcer (principal); L97.422 Non-pressure chronic ulcer of left heel and midfoot with fat layer exposed | CPT/HCPCS: 11043 ==

== ENCOUNTER 2024-10-31 13:11 | Outpatient (OUT) | payer MEDICARE, MEDICAID, SELFPAY ==
--- NOTE | 2024-10-31 13:00 | CA_ITS ---
The [facility] Test Date: 2024-10-31 Pat Name: GEREMIAS ARAYA Department: Room: - Gender: Male Soup Mixer: : 1965 Requested By: Rachana Jean Order Number: [id number] Reading MD: RAH MORAN M.D. Interpretive Statements Summary of the findings: Right leg: MARGA= 1.15; TBI= 0.9. Doppler waveforms demonstrate multiphasic flow at the posterior tibial, and dorsalis pedis arteries. Left leg: MARGA= 1.07; TBI= 1.1. Doppler waveforms demonstrate multiphasic flow at the posterior tibial, and dorsalis pedis arteries. Segmental pressures: Segmental pressures are within normal bilaterally (left infrapopliteal pressure difference is not believed to represent significant PAD given normal other indices). Pulse volume recordings: PVRs at the high thigh, below knee, and ankle levels show normal waveforms. Conclusion: Right and left ankle-brachial indices are suggestive of normal overall arterial flow at rest. Toe-brachial indices are not suggestive of PAD. Segmental pressures show no significant segmental disease. Pulse volume recordings indicate good overall resting arterial flow. Waveform analysis suggests normal bilateral arterial flow. Overall normal physiologic examination at rest. Electronically Signed On 10-31-2024 18:02:36 EDT by RAH MORAN M.D.
== END 2024-10-31 13:12 | disposition home or self-care (01) ==
LOC: CARD 13:13
PROVIDERS: Visit Provider Physician Assistant
DX: R09.89 Other specified symptoms and signs involving the circulatory and respiratory systems (principal)
CPT/HCPCS: 93923

== ENCOUNTER 2024-11-06 15:12 | Outpatient (OUT) | payer MEDICARE, MEDICAID, SELFPAY | END 2024-11-06 15:13 | disposition home or self-care (01) | LOC: WC 15:12 | PROVIDERS: Visit Provider Physician Assistant | DX: E11.621 Type 2 diabetes mellitus with foot ulcer (principal); L97.422 Non-pressure chronic ulcer of left heel and midfoot with fat layer exposed | CPT/HCPCS: 11043 ==

== ENCOUNTER 2025-02-06 13:51 | Outpatient (OUT) | payer MEDICARE, MEDICAID, SELFPAY ==
--- OUTSIDE RECORDS SUMMARY | 2024-08-15 11:00 | XMS_ITS ---
Author Organization The [facility] in [place] Address [address] [place] [address] Care Team Providers Care Education And Outreach Coordinator Name Role Phone None, Unknown or Primary Care Provider Unavailab Montrell Valles Unavailable [phone] Allergies No Known Allergies REASON FOR VISIT 6 month f/u w/ XRAY Medications Medication SIG (Take, Route, Fr equency, Duration) Notes Start Date End Date Status Sildenafil Citrate A ctive Fluoxetine Active Atorvastatin Calcium Active Thiamine HCl Active Doxepin HCl Active ALPRAZolam Active Lantus Active Jardiance Active Omeprazole Active Insulin Lispro Activ e Meloxicam Active Aspirin Active Gabapentin Active Lisinopril Active Cholecalciferol Acti ve Metoprolol Succinate Active Problems Problem Type SNOMED Code ICD Code Onset Dates Problem Status W/U Status Risk Notes Problem 847232183 Non-pressure chronic ulcer of other part of left foot with fat layer exposed (L97.522) Active confirmed Problem 713940458 Charcot's joint, right ankle and foot (M14.671) Active confirmed Encounters Encounter Location Date Provider Diagnosis [facility] [place] (PODIATRY) [address] [place] [address] [place] [address] 08/15/2024 Montrell Chadwick Charcot's joint, right ankle and foot M14.671 ; Non-pressure chronic ulcer of other part of left foot with fat layer exposed L97.522 ; Cellulitis of left lower limb L03.116 and Pain in right ankle and joints of right foot M25.571 Assessments Encounter Date Diagnosis (ICD Code) Assessment Notes Treatment Notes Treatment Clinical Notes Section Notes 08/15/2024 Charcot's joint, right ankle and foot (ICD-10 - M14.671) Patient seen and evaluated. Patient education provided and all questions answered to his satisfaction. Patient is doing satisfactorily although does have difficulty getting into hiking/hunting boots due to his ankle fusion. I did discuss potential utilization of a Creek boot which he adamantly declined. Although there is not bony fusion his ankle and hindfoot remained stable and deformity noted radiographically is not significantly appreciated clinically that is his foot on examination remains plantigrade and stable. He will follow-up at minimum every 3 months for surveillance x-rays of his right ankle 08/15/2024 Non-pressure chronic ulcer of other part of left foot with fat layer exposed (ICD-10 - L97.522) Patient developed a new ulceration on his left plantar medial foot. There is evidence of cellulitis but no purulence or evidence of deep space infection. Keflex 500 mg 1 p.o. 3 times daily for 2 weeks was sent to his pharmacy. He is to apply Medihoney with a dry sterile dressing daily after washing the foot with soap and water. No soaking or submerging. He will follow-up next week in the wound center 08/15/2024 Cellulitis of left lower limb (ICD-10 - L03.116) 08/15/2024 Pain in right ankle and joints of right foot (ICD-10 - M25.571) Plan Of Treatment Treatment Notes Assessment Notes Charcot's joint, right ankle and foot Pa tient seen and evaluated. Patient education provided and all questions answered to his satisfaction. Patient is doing satisfactorily although does have difficulty getting into hiking/hunting boots due to his ankle fusion. I did discuss potential utilization of a [place] boot which he adamantly declined. Although there is not bony fusion his ankle and hindfoot remained stable and deformity noted radiographically is not significantly appreciated clinically that is his foot on examination remains plantigrade and stable. He will follow-up at minimum every 3 months for surveillance x-rays of his right ankle Non-pressure chronic ulcer o f other part of left foot with fat layer exposed Patient developed a new ulceration on hi s left plantar medial foot. There is evidence of cellulitis but no purulence or evidence of deep space infection. Keflex 500 mg 1 p.o. 3 times daily for 2 weeks was sent to his pharmacy. He is to apply Medihoney with a dry sterile dressing daily after washing the foot with soap and water. No soaking or submerging. He will follow-up next week in the wound center Pending Test Test Name Order Date XR Ankle RT (3 views) * (161) 08/15/2024 XR Foot RT (3 views) * 08/15/2024 Progress Notes * Rachid MELCHOR RDOB:1965 (58 yo M)Acc No.[id number]:08/15/2024 Follow Up Patient: Rachid LUJAN Provider: Gigi Chadwick DPM, MS :1965 A ge:58 Y S ex:Male Date:08/15/2024 [facility] [address] [place], [id number] Pcp:Unknown or None Check In:03:44 PM ESTCheck O ut:04:09 PM EST Subjective: * Chief Complaints: * 6 month f/u w/ XRAY * HPI: G eneral: Pt here for right foot and ankle follow up from wound center. No changes to right foot, still has swelling which is worse medial ankle But no pain. Pt has diffiuclulty fitting into shoes with either foot. Pt has new complaint of left foot plantar crack at 1st MPJ region for past 3 weeks, notes a friend was trimming the callus and trimmed a bit too much, has been worsening since. He applies neosporin and band aid to the area. He admits to not using the topical cream as much as he should. * Active Problem List M14.671 Charcot''s joint of right ankle Modified On:08/23/2023W/U Status:confirmed M19.071 Arthritis of right s ubtalar joint Modified On:04/07/2023W/U Status:confirmed E11.621 Diabetes mellitus wi th foot ulcer due to multiple causes Modified On:04/27/2023W/U Status:confirmed L97.412 Non-pressure chronic ulcer of right heel and midfoot with fat layer exposed Modified On:04/13/2023/U Status:confirmed M86.471 Chronic osteomyeliti s of right foot with draining sinus Modified On:04/13/2023W/U Status:confirmed M21.6X1 Equinus deformity of right foot Modified On:04/13/2023U Status:confirmed E11.42 Diabetes mellitus wi th diabetic polyneuropathy Modified On:04/13/2023U Status:confirmed M19.071 Osteoarthritis of an kle and foot, right Modified On:04/13/2023U Status:confirmed E11.610 Charcot's arthropath y associated with type 2 diabetes mellitus Modified On:04/13/2023U Status:confirmed L97.412 Chronic ulcer of [place] surface of right midfoot with fat layer exposed Modified On:04/27/2023U Status:confirmed M86.671 Chronic osteomyeliti s of right foot Modified On:04/21/2023U Status:confirmed E11.9 DM2 (diabetes [facility], type 2) Modified On:04/21/2023U Status:confirmed F10.239 Alcohol withdrawal s yndrome Modified On:04/21/2023U Status:confirmed I10 Hypertension Modified On:04/21/2023U Status:confirmed E78.00 High cholesterol Modified On:04/21/2023U Status:confirmed Z96.9 Presence of function al implant Modified On:07/06/2023U Status:confirmed L97.312 Non-healing ulcer of ankle, right, with fat layer exposed Modified On:09/16/2023U Status:confirmed L97.312 Chronic ulcer of rig ht ankle with fat layer exposed Modified On:07/27/2023U Status:confirmed L97.421 Non-pressure chronic ulcer of left heel and midfoot limited to breakdown of skin Modified On:07/28/2023U Status:confirmed E11.621 Type 2 diabetes jeovanny itus with foot ulcer Modified On:07/28/2023U Status:confirmed L97.312 Non-pressure chronic ulcer of right ankle with fat layer exposed Modified On:09/16/2023U Status:confirmed L97.312 Non-healing ulcer of right ankle with fat layer exposed Modified On:07/29/2023U Status:confirmed L97.311 Non-pressure chronic ulcer of ankle, right, limited to breakdown of skin Modified On:08/31/2023/U Status:confirmed L97.312 Ischemic ulcer of ri ght ankle with fat layer exposed Modified On:10/03/2023/U Status:confirmed M21.6X9 Acquired equinus def ormity of foot Modified On:04/09/2024/U Status:confirmed M25.571 Pain in right ankle and joints of right foot Modified On:08/08/2024/U Status:confirmed M14.671 Charcot's joint, rig ht ankle and foot Modified On:08/16/2024/U Status:confirmed L97.522 Non-pressure chronic ulcer of other part of left foot with fat layer exposed Modified On:08/16/2024/U Status:confirmed * Medical History: * Surgical History: l eft ankle fusion left foot recon 04/12/2023removal of hardware 06/27/2023 * Hospitalization/Major Diagno stic Procedure: N o Hospitalization History. * Family History: N on-Contributory. * Medications: T akingALPRAZolam Aspirin Atorvastatin Calcium Cholecalciferol Doxepin HCl Fluoxetine Gabapentin Insulin Lispro Jardiance Lantus Lisinopril Meloxicam Metoprolol Succinate Omeprazole Sildenafil Citrate Thiamine HCl Medication List reviewed and reconciled with the patientTaking ALPRAZolam Taking Aspirin Taking Atorvastatin Calcium Taking Cholecalciferol Taking Doxepin HCl Taking Fluoxetine Taking Gabapentin Taking Insulin Lispro Taking Jardiance Taking Lantus Taking Lisinopril Taking Meloxicam Taking Metoprolol Succinate Taking Omeprazole Taking Sildenafil Citrate Taking Thiamine HCl Medication List reviewed and reconciled with the patient * Allergies: N .K.D.A.no[Allergies Verified] Objective: * Vitals: * Examination: P odiatry Examination: SKIN: S kin is intact on the right foot with no signs of infection.Left foot has an ulceration/fissure which is full-thickness and located on the plantar aspect of first metatarsal head. There is hyperkeratotic tissue surrounding the ulcer. There is erythema circumferentially around the ulcer as well but no purulent drainage. Ulcer measures 1.4 x 0.3 cm after trimming hyperkeratotic tissue. MUSCULOSKELETAL: N o pain to palpation, N o gross deformity, R ight foot and ankle remain plantigrade without bony prominence plantarly. No range of motion from the ankle or subtalar joint. NEUROLOGICAL: l ight touch sensation intact, n egative tinel's sign. VASCULAR: P edal pulses palpable, C apillary refill is brisk to toe, D igital hair intact. X -rays: x-rays were obtained & reviewed in my office. Right foot and ankle remain stable however no significant evidence of osseous fusion at the tibiotalar joint. Residual deformity most significant lead noted at lateral projection noting significant plantarflexion of the talus. Bayonet type deformity of the midfoot is also unchanged. Mild loosening of the hardware is noted but also unchanged from x-rays obtained last year. Assessment: * Assessment: 1. C harcot's joint, right ankle and foot - M14.671 (Primary) 2 . N on-pressure chronic ulcer of other part of left foot with fat layer exposed - L97.522 3 .?Cellulitis of left lower limb - L03.116 4 . P ain in right ankle and joints of right foot - M25.571 Plan: * Treatment: 2. N on-pressure chronic ulcer of other part of left foot with fat layer exposed Notes: Patient developed a new ulceration on his left plantar medial foot. There is evidence of cellulitis but no purulence or evidence of deep space infection. Keflex 500 mg 1 p.o. 3 times daily for 2 weeks was sent to his pharmacy. He is to apply Medihoney with a dry sterile dressing daily after washing the foot with soap and water. No soaking or submerging. He will follow-up next week in the wound center 3. P ain in right ankle and joints of right foot I maging: XR Ankle RT (3 views) * (161) I maging: XR Foot RT (3 views) * * Procedure Codes: * * Sign off status: Completed Visit Status: C HK (Check Out) true * Provider: Gigi Chadwick DPM, MS Date: 08/15/2024 Generated for Giorgi rinaldi/Tiffanie/Darnellitting on: 0 02/06/2025 01:53 PM EDT History and Physical Notes * HPI (History of Present Illness) Category Sub-Category Detail Notes Category Not es General Pt here for rig ht foot and ankle follow up from wound center. No changes to right foot, still has swelling which is worse medial ankle But no pain. Pt has diffiuclulty fitting into shoes with either foot. Pt has new complaint of left foot plantar crack at 1st MPJ region for past 3 weeks, notes a friend was trimming the callus and trimmed a bit too much, has been worsening since. He applies neosporin and band aid to the area. He admits to not using the topical cream as much as he should. Examination Category Sub-Category Detail Notes Category Notes Podiatry Examination SKIN: Skin is intact on the right foot with no signs of infection.Left foot has an ulceration/fissure which is full-thickness and located on the plantar aspect of first metatarsal head. There is hyperkeratotic tissue surrounding the ulcer. There is erythema circumferentially around the ulcer as well but no purulent drainage. Ulcer measures 1.4 x 0.3 cm after trimming hyperkeratotic tissue X-rays: x-rays were obtained & reviewed in my office. Right foot and ankle remain stable however no significant evidence of osseous fusion at the tibiotalar joint. Residual deformity most significant lead noted at lateral projection noting significant plantarflexion of the talus. Bayonet type deformity of the midfoot is also unchanged. Mild loosening of the hardware is noted but also unchanged from x-rays obtained last year MUSCULOSKELETAL: No pain to palpation , No gross deformity, Right foot and ankle remain plantigrade without bony prominence plantarly. No range of motion from the ankle or subtalar joint NEUROLOGICAL: light touch sensatio n intact, negative tinel's sign VASCULAR: Pedal pulses palpabl e, Capillary refill is brisk to toe, Digital hair intact
--- OUTSIDE RECORDS SUMMARY | 2024-08-15 12:06 | XMS_ITS ---
Author Organization [facility] in [place] Address [address] [place] [address] Care Team Providers Care Heating And Air Conditioning Mechanic Name Role Phone None, Unknown or Primary Care Provider Unavailab Montrell Valles Unavailable [phone] REASON FOR VISIT meds Medications Medication SIG (Take, Route, Fr equency, Duration) Notes Start Date End Date Status Cephalexin 500 MG 1 capsule Orally tid for 14 days 08/15/2024 Active Encounters Encounter Location Date Provider Diagnosis [facility] (PODIATRY) [address] [place] [address] [place] [address] 08/15/2024 Montrell Chadwick Plan Of Treatment Medication Medication Name Sig Start Date Stop Date Notes Cephalexin 500 MG 1 capsule Orally tid for 14 days 025 Progress Notes * Rachid MECLHOR RDOB:1965 (58 yo M)Acc No.[id number]:08/15/2024 Patient: Cesar FERNÁNDEZ Rachid hSah :1965 A ge:58 Y S ex:Male Address:[address] [place] [address] * Refills Start Cephalexin Capsule, 500 MG, Orally, 42 Capsule, 1 capsule, tid, 14 days * true * Date: Generated for Amadeoi ng/Faxing/eTransmitting on: 0 02/06/2025 01:53 PM EDT
--- OUTSIDE RECORDS SUMMARY | 2025-02-06 13:53 | XMS_ITS | Clinical Summary ---
Author Organization [facility] Address [address], [address] [place] [address] Care Team Providers Care Farmworker Name Role Phone Manfred Muniz MD Primary Care Provider [phone] Allergies No known active allergies Medications furosemide (LASIX) 20 MG tablet Take 20 mg by mouth daily Active gabapentin (NEURONTIN) 800 MG tablet Take 800 mg by mouth 3 times daily. Active metFORMIN (GLUCOPHAGE) 500 MG tablet Take 500 mg by mouth three times daily Active Cyanocobalamin (VITAMIN B-12) 5000 MCG TBDP Take by mouth daily Active [place]-3 Fatty Acids (FISH OIL) 1200 MG CAPS Take by mouth daily Active empagliflozin (JARDIANCE) 25 MG tablet Take 25 mg by mouth daily Active lisinopril (PRINIVIL;ZESTR IL) 5 MG tablet Take 5 mg by mouth daily Active metoprolol tartrate (LOPRESSOR) 25 MG tablet Take 25 mg by mouth 2 times daily Active Thiamine HCl (VITAMIN B-1 PO) Take by mouth daily Active Pyridoxine HCl (VITAMIN B6) 50 MG TABS Take by mouth daily Active potassium chloride (MICRO-K) 10 MEQ extended release capsule Take 10 mEq by mouth daily Active aspirin 81 MG EC tablet Take 81 mg by mouth daily Active atorvastatin (LIPITOR) 10 MG tablet Take 10 mg by mouth nightly Active albuterol sulfate HFA 108 (90 Base) MCG/ACT inhaler Inhale 2 puffs into the lungs every 6 hours as needed for Wheezing Active insulin lispro (HUMALOG) 100 UNIT/ML injection vial Inject 12 Units into the skin 3 times daily (before meals) Active insulin glargine (LANTUS;BASAGLA R) 100 UNIT/ML injection pen Inject 25 Units into the skin daily Active ketorolac (TORADOL) 10 MG tablet Take 1 tablet by mouth 3 times daily for 5 days 1 tab by mouth 3 times daily 15 tablet 12/28/2019 Active Active Problems Problem Noted Date Diagnosed Date 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 Social History Tobacco Use Types Packs/Day Years Used Date Smoking Tobacco: Every Day Cigarettes Smokeless Tobacco: Never Alcohol Use Standard Drinks/Week Comments Yes 0 (1 standard drink = 0.6 oz pur e alcohol) 3X WEEKLY Sex and Gender Information Value Date Recorded Sex Assigned at Not on file Legal Sex Male 8:42 AM EDT Gender Identity Not on file Sexual Orientation Not on file Last Filed Vital Signs Vital Sign Reading Time Taken Comments Blood Pressure 135/88 12/28/2019 2:30 PM EDT Pulse 80 12/28/2019 2:30 PM EDT Temperature 37 C (98.6 F) 12/28/2019 2:30 PM EDT Respiratory Rate 18 12/28/2019 2:30 PM EDT Oxygen Saturation 93% 12/28/2019 2:30 PM EDT Inhaled Oxygen Concentration - - Weight 112.5 kg (248 lb) 12/28/2019 8:19 AM EDT Height 182.9 cm (6') 12/28/2019 8:19 AM EDT Body Mass Index 33.63 12/28/2019 8:19 AM EDT Plan of Treatment Not on file Medical Devices Implanted Type Area Scaffold Erector Device Identifier Shelf Expiration Date Model / Serial / Lot [place] Sut Corkscrew Biocomposite 5.5mm Implanted:Qty: 1 on 12/28/2019 by Farzad Escalona MD at [facility] Right: Shoulder [employer] 05/10/2020 [id number] / / [id number] [place] Suture Swivelock 4.75x19.1 Biocomposite Min 5ea Implanted:Qty: 1 on 12/28/2019 by Farzad Escalona MD at [facility] Right: Shoulder [employer] 06/09/2023 [id number] / / [id number] Button Endoscopic Bicep 2.6x12mm Implanted:Qty: 1 on 12/28/2019 by Farzad Escalona MD at [facility] Fastener Right: Shoulder [employer] 01/08/2024 [id number] / / [id number] Insurance MEDICARE MEDICAID [place] Care Teams Farmworker Relationship Specialty Start Date End Date Manfred Muniz MD [address] [place] [address] PCP - General Internal Medicine 12/21/19
--- OUTSIDE RECORDS SUMMARY | 2025-02-06 13:54 | XMS_ITS | Clinical Summary ---
Author Organization [facility] Address [address] [place] [address] Care Team Providers Care Sheep Sticker Name Role Phone Jignesh Muniz NP Primary Care Provider [phone] Allergies No known active allergies Medications ammonium lactate (Amlactin) 12 % cream 1 application every 12 (twelve) hours. 2 Active Jardiance 25 MG 1 (one) time each day at the same time. Active gabapentin (Neurontin) 800 MG tablet every 8 (eight) hours. Active insulin lispro (HumaLOG) 100 UNIT/ML injection 2 Active metFORMIN (Glucophage) 500 MG tablet every 8 (eight) hours. Active mupirocin (Bactroban) 2 % ointment 2 Active ASPIRIN 81 PO Aspirin 81 Activ e Active Problems Problem Noted Date Diagnosed Date Charcot foot due to diabetes mellitus 12/25/2022 Family History Relation Name Status Comments Father Alive Mother Alive Social History Tobacco Use Types Packs/Day Years Used Date Smoking Tobacco: Every Day Cigarettes Tobacco Cessation:Ready to Q uit: Not Asked; Counseling Given: Not Answered Comments:11-20 cigs a day Alcohol Use Standard Drinks/Week Comments Yes 0 (1 standard drink = 0.6 oz pure alcohol) 3-4 drinks 4+ times a week. Caffine intake: 2-3 cups per day Sex and Gender Information Value Date Recorded Sex Assigned at Not on file Legal Sex Male 11:46 PM EDT Gender Identity Not on file Sexual Orientation Not on file Last Filed Vital Signs Vital Sign Reading Time Taken Comments Blood Pressure 115/78 04/22/2022 12:00 PM EDT Pulse - - Temperature - - Respiratory Rate - - Oxygen Saturation - - Inhaled Oxygen Concentration - - Weight 109 kg (240 lb) 10/01/2022 12:00 PM EDT Height 182.9 cm (6') 10/01/2022 12:00 PM EDT Body Mass Index 32.55 10/01/2022 12:00 PM EDT Plan of Treatment Health Maintenance Due Date Last Done Comments CT Colonography 1964 Colonoscopy 1964 Colorectal Cancer Screening 1964 FIT-DNA 1964 FIT 1964 FOBT 1965 Sigmoidoscopy 1964 Influenza Vaccine (#1) 2025 04/28/2022, 2020 Insurance [employer] MEDICARE ADVANTAGE MEDICAID [place] Care Teams Sheep Sticker Relationship Specialty Start Date End Date Jignesh Muniz NP PCP - General Family Medicine 12/27/22
--- OUTSIDE RECORDS SUMMARY | 2025-02-06 13:54 | XMS_ITS | Patient Health Record ---
Author Organization [facility] Address [address] [place] [address] Care Team Providers Care Brick Washer Name Role Phone Flavio WHEELER, Manfred Primary Care Provider Farzad Watkins Unavailable [phone] Reason For Referral No Information Medications Medication SIG (Take, Route, Fr equency, Duration) Notes Start Date End Date Status Ventolin Active omeprazole Active Potassium CL Active Lisinopril Active Basaglar KwikPen Act rahel ALPRAZolam Active jardiance Active doxepin Active Hair, Skin, Nails Ac tive atorvastatin Active Fish Oil Active Invokana Active Vitamin B-12 Active Metformin Active Baby Aspirin Active gabapentin Active Metoprolol Active furosemide Active HumaLOG Active Social History Tobacco Use: Social History Observation Description Date Details (start date - stop date) Current Smoker NA - NA Smoking History Question Answer Notes Smoking Status Current Smoker Problems Problem Type SNOMED Code ICD Code Onset Dates Problem Status W/U Status Risk Notes Problem 568901040071134 Olecranon bursitis, right elbow (M70.21) Active confirmed Problem Incomplete rupture of right rotator cuff (M75.111) Active confirmed Problem [id number] Right shoulder pain, unspecified chronicity (M25.511) Active confirmed Plan Of Treatment No Information Insurance Providers Payer Name Payer Address Payer Phone Subscriber Number Group Number Insured Name Patient Relationship to Insured Coverage Start Date Coverage End Date Medicare Marty Advantage [address] [place] [address] [id number] GEREMIAS ARAYA Self - patient is the insured [place] Dept of Medicaid [address] [place] [address] [id number] GEREMIAS ARAYA Self - patient is the insured Medicare [address] [phone] [id number] GEREMIAS ARAYA Self - patient is the insured Medical (General) History Medical History History ICD Code Asthma/COPD Yes High Blood Pressure: Yes Depression: Yes Anxiety: Yes Sleep apnea: Yes Do you have a pacemaker or A ICD(automatic internal cardiac defibrillator)? No Latex Allergy No Bariatric Surgery: No Have you been in close conta ct with someone who has had MRSA within the last year? No Are you a healthcare worker? No Asthma/COPD Yes Respiratory problems: Yes Diabetes: Yes High Blood Pressure: Yes Depression: Yes Anxiety: Yes Sleep apnea: Yes CPAP Machine: Yes Do you use the CPAP machine? Yes Surgical History Surgery Date(Month/Year) Arthroscopy rright shoulder with RCR and open biceps tendondesis 12/28/2019
--- OUTSIDE RECORDS SUMMARY | 2025-02-06 13:54 | XMS_ITS | Encounter Summary ---
Author Organization [facility] Address [address] [place] [address] Care Team Providers Care Acid Crane Operator Name Role Phone Shay Han Lucina DO Unavailable [phone] Jignesh Muniz PACK OUT OPERATOR Primary Care Provider [phone] Encounter Details Date Type Department Care Team (Late st Contact Info) Description 02/28/2023 Orders Only [facility] [address] [place] [address] A, Unknown Practice [address] [id number] Social History Tobacco Use Types Packs/Day Years Used Date Smoking Tobacco: Every Day Cigarettes Comments:11-20 cigs a day Alcohol Use Standard Drinks/Week Comments Yes 0 (1 standard drink = 0.6 oz pure alcohol) 3-4 drinks 4+ times a week. Caffine intake: 2-3 cups per day Sex and Gender Information Value Date Recorded Sex Assigned at Not on file Legal Sex Male 11:46 PM EDT Gender Identity Not on file Sexual Orientation Not on file documented as of this encounter Plan of Treatment Not on file documented as of this encounter Procedures Procedure Name Priority Date/Time Associated Diagnosis Comments SCANNED LABS Routine 02/23/2023 10:52 AM EDT SCANNED LABS Routine 02/23/2023 10:08 AM EDT documented in this encounter Results * SCANNED LABS (02/23/2023 10:52 AM EDT) us Unknown Practice A LAB CHG PERFORMABLES Final Re sult * SCANNED LABS (02/23/2023 10:08 AM EDT) us Unknown Practice A LAB CHG PERFORMABLES Final Re sult documented in this encounter Visit Diagnoses Not on filedocumented in this encounter Care Teams Acid Crane Operator Relationship Specialty Start Date End Date Shay Han DO [address] [place] [address] PCP - Daniel WANG 12/09/22 08/10/23 Jignesh Muniz, PACK OUT OPERATOR [address] [place] [address] PCP - General Family Medicine 12/27/22 documented as of this encounter
--- OUTSIDE RECORDS SUMMARY | 2025-02-06 13:54 | XMS_ITS | Encounter Summary ---
Author Organization [facility] Address [address] [place] [address] Care Team Providers Care Data Entry Analyst Name Role Phone Shay Han DO Unavailable [phone] Jignesh Muniz WINDOW DRESSER Primary Care Provider [phone] Encounter Details Date Type Department Care Team (Late st Contact Info) Description 12/23/2022 Abstract [facility] [address] [facility] [address] [place] [address] Rachid Crowe DPM [address] [facility] [address] [place] [address] Social History Tobacco Use Types Packs/Day Years Used Date Smoking Tobacco: Every Day Cigarettes Tobacco Cessation:Ready to Q uit: Yes; Counseling Given: Not Answered Comments:11-20 cigs a [...] on file documented as of this encounter Visit Diagnoses Not on filedocumented in this encounter Care Teams Data Entry Analyst Relationship Specialty Start Date End Date Shay Han DO [address] [facility] [address] [place] [address] PCP - Daniel WANG 12/09/22 08/10/23 Jignesh Muniz, TRUE [address] [place] [address] PCP - General Family Medicine 12/27/22 documented as of this encounter
--- OUTSIDE RECORDS SUMMARY | 2025-02-06 13:54 | XMS_ITS | Encounter Summary ---
Author Organization [facility] Address [address] [facility] [place] [address] Care Team Providers Care Fisher Trammel Net Name Role Phone Shay Han DO Unavailable [phone] Jignesh Muniz CLAMP REMOVER Primary Care Provider [phone] Encounter Details Date Type Department Care Team (Late st Contact Info) Description 02/25/2023 Orders Only [facility] [address] [place] [address] A, Unknown Practice [address] [id number] Social History Tobacco Use Types Packs/Day Years [...] Associated Diagnosis Comments SCANNED LABS Routine 02/23/2023 1:53 PM EDT documented in this encounter Results * SCANNED LABS (02/23/2023 1:53 PM EDT) us Unknown Practice A LAB CHG PERFORMABLES Final Re sult documented in this encounter Visit Diagnoses Not on filedocumented in this encounter Care Teams Fisher Trammel Net Relationship Specialty Start Date End Date Shay Han DO [address] [place] [address] PCP - Daniel WANG 12/09/22 08/10/23 Jignesh Muniz NP [address] [place] [address] PCP - General Family Medicine 12/27/22 documented as of this encounter
--- OUTSIDE RECORDS SUMMARY | 2025-02-06 13:54 | XMS_ITS | Clinical Summary ---
Author Organization [facility] Address [address] [place] [address] Care Team Providers Care Nutrition Services Worker Name Role Phone Manfred Nuñez MD Primary Care Provider + Allergies No known active allergies Medications ALPRAZolam (XANAX) 1 MG tablet Take 1 mg by mouth 2 (two) times a day as needed for anxiety. 2 tabs (2mg) qAM, 1 tab qPM Active nebivolol (BYSTOLIC) 10 MG tablet Take 10 mg by mouth daily. Active Active Problems Problem Noted Date Diagnosed Date Hypertension 11/28/2014 Assessment & Plan (11/29/2014 11:42 AM EDT): Recent diagnosis, started bystolic 4-5 days prior to admission -continue bystolic. Follow up with primary care in 1 week. Anxiety 11/28/2014 Assessment & Plan (11/29/2014 11:43 AM EDT): Chronic. 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 -D-dimer 0.3; CT dissection 11/28/14 no aortic aneurysm/dissection, no acute findings -AST/ALT 57/79 on admit -Fasting lipid panel with total cholestoerol 186, triglycerides 204, LDL 100. - A1c 6.6 -Stress echocardiogram negative -continue home beta peterson. Recommend follow up with primary care in 1 week to discuss [facility] statin and blood glucose management Tobacco abuse 11/28/2014 Assessment & Plan (11/29/2014 11:47 AM EDT): -current smoker, cessation advised Neuropathy 11/28/2014 Assessment & Plan (11/29/2014 11:51 AM EDT): -decreased sensation of just feet -with pain in b/l balls of feet at work, which requires lots of lifting -intolerant of lyrica due to nausea (Rx'd by PCP, also expensive for pt) -prn gabapentin provided relief. Prescription provided. Alcohol use 11/28/2014 Assessment & Plan (11/29/2014 11:48 AM EDT): -uses 3 rum & cokes nightly, no h/o withdrawal. No symptoms of withdrawal while inpatient. Decreasing use advised. Resolved Problems Problem Noted Date Diagnosed Date Resolved Date DVT prophylaxis 11/28/2014 11/29/2014 Family History Medical History Relation Comments Hearing loss Maternal Grandfather Diabetes Paternal Uncle Relation Status Comments Maternal Grandfather Paternal Uncle Social History Tobacco Use Types Packs/Day Years Used Date Smoking Tobacco: Every Day Cigarettes 1 25 Tobacco Cessation:Ready to Q uit: No Alcohol Use Standard Drinks/Week Comments Yes 0 (1 standard drink = 0.6 oz pur e alcohol) daily: 2-3 rums per day Sex and Gender Information Value Date Recorded Sex Assigned at Not on file Legal Sex Male 1:53 PM EDT Gender Identity Not on file Sexual Orientation Not on file Last Filed Vital Signs Vital Sign Reading Time Taken Comments Blood Pressure 125/83 11/29/2014 11:26 AM EDT Pulse 81 11/29/2014 11:26 AM EDT Temperature 36.4 C (97.6 F) 11/29/2014 11:26 AM EDT Respiratory Rate 12 11/29/2014 11:26 AM EDT Oxygen Saturation 94% 11/29/2014 11:26 AM EDT Inhaled Oxygen Concentration - - Weight 110 kg (242 lb 8.1 oz) 11/28/2014 1:05 PM EDT Height 182.9 cm (6') 11/28/2014 1:05 PM EDT Body Mass Index 32.89 11/28/2014 1:05 PM EDT Plan of Treatment Not on file Insurance [employer] HMO Advance Directives For more information, please contact: [phone] * Full Code (Latest Code Status on File) Date Activated Date Inactivated Comments 11/28/2014 7:59 PM 11/29/2014 2:53 PM Care Teams Nutrition Services Worker Relationship Specialty Start Date End Date Manfred Nuñez MD [address] [place] [address] PCP - General Family Medicine 11/28/14
--- OUTSIDE RECORDS SUMMARY | 2025-02-06 13:54 | XMS_ITS | Encounter Summary ---
Author Organization [facility] Address [address] [place] [address] Care Team Providers Care Special Agent In Charge Name Role Phone Shay Han Lucina DO Unavailable [phone] Jignesh Muniz PLANT ASSOCIATE Primary Care Provider [phone] Encounter Details Date Type Department Care Team (Late st Contact Info) Description 02/15/2023 Orders Only [facility] [address] [place] [address] A, Unknown Practice [address] [place] [address] Social History Tobacco Use Types Packs/Day Years [...] Procedure Name Priority Date/Time Associated Diagnosis Comments XR FOOT 3+ VIEWS RIGHT Routine 02/15/2023 4:32 PM EDT documented in this encounter Results * XR FOOT 3+ VIEWS RIGHT (02/15/2023 4:32 PM EDT) Anatomical Region Laterality Modality Radiographic Patricia ging us Unknown Practice A IMG XR PROCEDURES Final Resul t documented in this encounter Visit Diagnoses Not on filedocumented in this encounter Care Teams Special Agent In Charge Relationship Specialty Start Date End Date Shay Han DO [address] [place] [address] PCP - Daniel WANG 12/09/22 08/10/23 Jignesh Muniz, PLANT ASSOCIATE [address] [place] [address] PCP - General Family Medicine 12/27/22 documented as of this encounter
--- OUTSIDE RECORDS SUMMARY | 2025-02-06 13:54 | XMS_ITS | Encounter Summary ---
Author Organization [facility] Address [address] [place] [address] Care Team Providers Care Loader Engineer Name Role Phone Shay Han DO Unavailable [phone] Jignesh Muniz BOAT RIDE OPERATOR Primary Care Provider [phone] Encounter Details Date Type Department Care Team (Late st Contact Info) Description 02/08/2023 Orders Only [facility] [address] [facility] [address] [place] [address] Sydnie Nagel LPN Social History Tobacco Use Types Packs/Day Years [...] on filedocumented in this encounter Care Teams Loader Engineer Relationship Specialty Start Date End Date Shay Han DO [address] [facility] [address] [place] [address] PCP - Daniel WANG 12/09/22 08/10/23 Jignesh Muniz, BOAT RIDE OPERATOR [address] [facility] [address] [place] [address] PCP - General Family Medicine 12/27/22 documented as of this encounter
--- OUTSIDE RECORDS SUMMARY | 2025-02-06 14:54 | XMS_ITS | CCD ---
Author Organization Unknown Care Team Providers Care Manager Pe Name Role Phone Unavailable Primary Care Provider Unavailabl e Unavailable Chronic Care Management Unavaila ble Summary Purpose DataExchange Insurance Providers Payer name Policy type / Coverage type Covered green party ID Effective Begin Date Effective End Date [facility] [id number] Unknown Unknown Family History Family History data not found Medication Administered No Medication Administered data Reason For Visit No Reason For Visit data Medical Equipment No Medical Equipment data Advance Directives No Advance Directive data
== END 2025-02-06 13:52 | disposition home or self-care (01) ==
LOC: WC 13:51
PROVIDERS: Visit Provider Physician Assistant
DX: E11.621 Type 2 diabetes mellitus with foot ulcer (principal); L97.422 Non-pressure chronic ulcer of left heel and midfoot with fat layer exposed
CPT/HCPCS: 11043

== ENCOUNTER 2025-03-05 12:48 | Outpatient (OUT) | payer MEDICARE, MEDICAID, SELFPAY ==
--- OUTSIDE RECORDS SUMMARY | 2025-03-05 12:54 | XMS_ITS | Clinical Summary ---
Author Organization [facility] Address [address] [place] [address] Care Team Providers Care Canal Boat Captain Name Role Phone Jignesh Muniz NP Primary Care Provider [phone] Allergies No known active allergies Medications ammonium [...] 10/01/2022 12:00 PM EDT Plan of Treatment Upcoming Encounters Date Type Department Care Team (Late st Contact Info) Description 04/08/2025 2:10 PM EDT Office Visit [facility] [address] [place] [address] Kimmie Yarbrough MD [address] [place] [address] Health Maintenance Due Date Last Done Comments CT Colonography 1964 Colonoscopy 1964 Colorectal Cancer Screening 1964 FIT-DNA 1964 FIT 1964 FOBT 1964 Sigmoidoscopy 1964 Influenza Vaccine (#1) 2025 05/08/2024, 2021, 04/30/2021 Insurance [employer] MEDICARE ADVANTAGE MEDICAID [place] Care Teams Canal Boat Captain Relationship Specialty Start Date End Date Jignesh Muniz NP PCP - General Family Medicine 12/27/22
--- OUTSIDE RECORDS SUMMARY | 2025-03-05 12:54 | XMS_ITS | Encounter Summary ---
Author Organization [facility] Address [address] [place] [address] Care Team Providers Care Maternal Fetal Physician Name Role Phone GuilleShay levi Lucina DO Unavailable [phone] Jignesh Muniz BESSEMER BOTTOM MAKER Primary Care Provider [phone] Encounter Details Date Type Department Care Team (Late st Contact Info) Description 02/08/2023 Orders Only [facility] [address] [place] [address] Sydnie Nagel LPN Social History Tobacco Use [...] as of this encounter Plan of Treatment Upcoming Encounters Date Type Department Care Team (Late st Contact Info) Description 04/08/2025 2:10 PM EDT [facility] [address] [place] [address] Kimmie Yarbrough MD [address] [place] [address] documented as of this encounter Visit Diagnoses Not on filedocumented in this encounter Care Teams Maternal Fetal Physician Relationship Specialty Start Date End Date Shay Han DO [address] [place] [address] PCP - Daniel WANG 12/09/22 08/10/23 Jignesh Muniz NP [address] [facility] [address] [place] [address] PCP - General Family Medicine 12/27/22 documented as of this encounter
--- OUTSIDE RECORDS SUMMARY | 2025-03-05 12:54 | XMS_ITS | Encounter Summary ---
Author Organization [facility] Address [address] [facility] [place] [address] Care Team Providers Care Special Forces Warrant Officer Name Role Phone Shay Han DO Unavailable [phone] Jignesh Muniz ULTRASOUND TESTER Primary Care Provider [phone] Encounter Details Date Type Department Care Team (Late st Contact Info) Description 02/25/2023 Orders Only [facility] [address] [facility] [address] [facility] [address] [address] [place] [address] A, Unknown Practice [address] [place] [address] Social History Tobacco Use Types Packs/Day Years [...] [facility] [address] [place] [address] Kimmie Yarbrough MD [address] [place] [address] documented as of this encounter Procedures Procedure Name Priority Date/Time Associated Diagnosis Comments SCANNED LABS Routine 02/23/2023 1:53 PM EDT documented in this encounter Results * SCANNED LABS (02/23/2023 1:53 PM EDT) us Unknown Practice A LAB CHG PERFORMABLES Final Re sult documented in this encounter Visit Diagnoses Not on filedocumented in this encounter Care Teams Special Forces Warrant Officer Relationship Specialty Start Date End Date Shay Han DO [address] [place] [address] PCP - Daniel WANG 12/09/22 08/10/23 Jignesh Muniz, ULTRASOUND TESTER [address] [place] [address] PCP - General Family Medicine 12/27/22 documented as of this encounter
--- OUTSIDE RECORDS SUMMARY | 2025-03-05 12:54 | XMS_ITS | Encounter Summary ---
Author Organization [facility] Address [address] [facility] [place] [address] Care Team Providers Care Investigator Name Role Phone Shay Han DO Unavailable [phone] Jignesh Muniz COMMERCIAL CREDIT PORTFOLIO MANAGER Primary Care Provider [phone] Encounter Details Date Type Department Care Team (Late st Contact Info) Description 02/15/2023 Orders Only [facility] [address] [place] [id number] A, Unknown Practice [address] [place] [address] Social History Tobacco Use Types Packs/Day Years [...] [facility] [address] [place] [address] Kimmie Yarbrough MD [address] [place] [address] documented as of this encounter Procedures Procedure [...] on filedocumented in this encounter Care Teams Investigator Relationship Specialty Start Date End Date Shay Han DO [address] [place] [address] PCP - Daniel WANG 12/09/22 08/10/23 Jignesh Muniz, COMMERCIAL CREDIT PORTFOLIO MANAGER [address] [place] [address] PCP - General Family Medicine 12/27/22 documented as of this encounter
--- OUTSIDE RECORDS SUMMARY | 2025-03-05 12:54 | XMS_ITS | Clinical Summary ---
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
--- OUTSIDE RECORDS SUMMARY | 2025-03-05 12:54 | XMS_ITS | Encounter Summary ---
Author Organization [facility] Address [address] [facility] [place] [address] Care Team Providers Care Icing And Glaze Maker Name Role Phone Shay Han DO Unavailable [phone] Jignesh Muniz PRINTER FLOOR COVERING ASSISTANT Primary Care Provider [phone] Encounter Details Date Type Department Care Team (Late st Contact Info) Description 02/28/2023 Orders Only [facility] [address] [place] [phone] A, Unknown Practice [address] [place] [address] Social History Tobacco Use Types Packs/Day Years [...] [facility] [address] [place] [address] Kimmie Yarbrough MD [address] [place] [address] documented as of this encounter Procedures Procedure [...] on filedocumented in this encounter Care Teams Icing And Glaze Maker Relationship Specialty Start Date End Date Shay Han DO [address] [place] [address] PCP - Daniel WANG 12/09/22 08/10/23 Jignesh Muniz, PRINTER FLOOR COVERING ASSISTANT [address] [place] [address] PCP - General Family Medicine 12/27/22 documented as of this encounter
--- OUTSIDE RECORDS SUMMARY | 2025-03-05 12:54 | XMS_ITS | Encounter Summary ---
Author Organization [facility] Address [address] [place] [address] Care Team Providers Care Patternmaker Helper Name Role Phone Shay Han DO Unavailable [phone] Jignesh Muniz SALES LEDGER CLERK Primary Care Provider [phone] Encounter Details Date Type Department Care Team (Late Contact Info) Description 12/23/2022 Abstract [facility] [address] [facility] [address] [place] [phone] Rachid Crowe DPM [address] [facility] [address] [place] [address] Social History Tobacco Use Types Packs/Day Years [...] EDT Office Visit [facility] [address] [place] [phone] Kimmie Yarbrough MD [address] [place] [address] documented as of this encounter Visit Diagnoses Not on filedocumented in this encounter Care Teams Patternmaker Helper Relationship Specialty Start Date End Date Shay Han DO [address] [place] [address] PCP - Daniel WANG 12/09/22 08/10/23 Jignesh Muniz, SALES LEDGER CLERK [address] [place] [address] PCP - General Family Medicine 12/27/22 documented as of this encounter
--- OUTSIDE RECORDS SUMMARY | 2025-03-05 13:02 | XMS_ITS | CCD ---
Author Organization [facility] Inform ion Partnership [employer] [facility] Care Team Providers Care Export Administrator Name Role Phone LENKA ROQUE Attending Unavailable ERICKA MONTIEL Primary Care UnavailEdilberto Rod Primary Care Physician Ericka Dotson Unavailable Unavailable Ericka Muniz Primary Care Physician Unavailab Ayden Ndiaye Primary Care Physician Unavail able Ayden Yates Primary Care Physician Unavail able Trudy, Ayden Primary Care Physician Unavail able Edilberto Zamora Primary Care Physician Ericka Dotson Primary Care Physician UnavailEdliberto Herron Primary Care Physician Ericka Dotson Primary Care Physician UnavailEricka Encarnacion Primary Care Physician UnavailEricka Encarnacion Primary Care Provider Edilberto Zamora Primary Care Physician Edilberto Pendleton Primary Care Physician Ericka Dotson Primary Care Physician UnavailEricka Ecnarnacion Primary Care Provider Ericka Muniz Primary Care Physician Unavailab WALTER Pro Referring Unavailable ERICKA MUNIZ Primary Care Unavailable TESS ESCALONA Referring Unavailable ERICKA MUNIZ Primary Care Unavailable TESS ESCALONA Referring Unavailable ERICKA MUNIZ Primary Care Unavailable TESS ESCALONA Referring Unavailable ERICKA MUNIZ Primary Care Unavailable ERICKA MUNIZ Primary Care Unavailable CARY MIGNON Referring Unavailable CARY MIGNON Referring Unavailable ERICKA MUNIZ Primary Care Unavailable Edilberto Zamora Primary Care Physician Edilberto Pendleton Primary Care Physician Ericka Dotson Primary Care Physician Unavailab Ericka David Primary Care Physician Unavailab Ericka David Primary Care Physician UnavailEdilberto Herron Primary Care Physician Edilberto Pendleton Primary Care Physician Farhat Zamora, Edilberto L Primary Care Physician Farhat Muniz, Ericka Shah Primary Care Physician Unavailab solomon Muniz, Ericka Shah Unavailable Unavailable Sera, Edilberto L Primary Care Physician Unavadanielle Zamora, Edilberto L Primary Care Physician Unavai corinne Zamora, Edilberto L Primary Care Physician Unavai corinne Muniz, Ericka R Primary Care Physician Unavailab le Dyana, Franky P Primary Care Physician Unavai lable Dyana, Franky P Primary Care Physician Unavai lable Dyana, Franky P Primary Care Physician Unavai labsolomon Zamora, Edilberto L Primary Care Physician Unavai corinne Zamora, Edilberto L Primary Care Physician Unaalex Muniz, Ericka Shah Primary Care Physician Unavailab solomon Dyana, Franky P Primary Care Physician Unavai lable [facility], Franky P Primary Care Physician Unavai lable [facility], Franky P Primary Care Physician Unavai josele NON STAFF Primary Care Provider UnavailSOLE Short Emergency Provider RADHA Novak Attending Provider [facility], CHERYL Yu Attending Provider NON STAFF Primary Care Provider UnavailSOLE Short Emergency Provider [facility], DPSarina Yu Attending Provider RADHA Novak Attending Provider [facility], CHERYL Ontiveros Attending Provider [phone] RADHA Novak Attending Provider Edilberto Zamora Primary Care Physician Farhat Zamora, Edilberto L Primary Care Physician NAYLA Turner Admitting Unavailable SASHA FLAHERTY Consulting Unavailable NAYLA OAKES Attending Unavailable NAYLA OAKES Consulting Unavailable NAYLA OAKES Admitting Unavailable DR TESS JHAVERI Consulting Unavailable NYALA OAKES Attending Unavailable NAYLA OAKES Consulting Unavailable NAYLA OAKES Attending Unavailable NAYLA OAKES Admitting Unavailable Shay Han DO Unavailable Jignesh Muniz MD Primary Care Provider Ericka Muniz Primary Care Physician Unavailab Ericka David Primary Care Physician Unavailab RADHA Ayers Emergency Provider [phone] MD Ericka Muniz Primary Care Provider Gregg [facility] Missy Galan Emergency Provider [phone] Ericka Muniz Primary Care Physician UnavailCinthia López Primary Care Physician Unavailcameron Muniz MD, Ericka Shah Primary Care Provider Todd BISWAS-C, Ayanna Gutiérrez Attending Provider Ericka Muniz Primary Care Unavailable Mark Upton Admitting Unavailable Mark Upton Attending Unavailable Ericka Muniz Primary Care Unavailable Missy Escobedo Admitting Unavailable Missy Escobedo Attending Unavailable Ayanna Brooks Admitting Unavailable Ayanna Brooks Attending Unavailable Ericka Muniz Primary Care Unavailable Bo Pearce DO Referring Unavaila ble Todd YEE, Ayanna Fabian Attending Un available Ericka Muniz MD Primary Care Unavailable Todd YEE, Ayanna Fabian Attending Un available Ericka Muniz MD Primary Care Unavailable Todd YEE, Ayanna Fabian Attending Un available Ericka Muniz MD Primary Care Unavailable Todd YEE, Ayanna Fabian Attending Un available Ericka Muniz MD Primary Care Unavailable Bo Pearce DO Referring UnavailEricka Sharpe Primary Care Physician UnavailCinthia López Primary Care Physician Unavailcameron barton Medications Current Medications Medication Drug Class(es) Dates [...] Inhibitor, Nonsteroidal Anti-inflammatory Drug Start: 04-14-2022 take 1 capsule by mouth once daily Aspirin 81 mg Capsule Active 81 MG PO Daily April 13, 2022 11:00pm take 1 tablet by mouth once gogo y take 1 tablet (81 mg) by oral route once daily ASPIRIN 81 PO As pirin 81 0 Active calcium chloride 0.0014 meq/ml / potassium chloride 0.004 meq/ml / sodium chloride 0.103 meq/ml / sodium lactate 0.028 meq/ml injectable solution (1 source) Start: 12-28-2019 lactated ringe rs infusion 2 ml fentaNYL 0.05 mg/ml injection (2 sources) Opioid Agonist Start: 12-28-2019 fentaNYL (SUBL IMAZE) injection 50 mcg Start: 12-28-2019 fentaNYL (SUBL IMAZE) injection 25 mcg Yysuutnfzvw-Woonnxbjz-Edhuje er (1 source) Anticholinergic, Corticosteroid, beta2-Adrenergic Agonist Start: 08-14-2024 Ypdbtqgrqkp-Ijeipketg-Vpfksq er (Trelegy Ellipta) 100-62.5-25 mcg blister with device Active 1 INH INHALATION Daily 60 August 14, 2024 12:00am gabapentin 800 mg oral table t (20 sources) Anti-epileptic Agent Start: 11-30-2024 End: 05-29-2025 t a k e 1 t a b l e t b y m o u t h t h r e e t i m e s d a i l y TAKE 1 TABLET BY MOUTH THREE TIMES DAILY Start: 11-30-2021 End: 05-12-2024 take 1 tablet by mouth three times daily Gabapentin 800 mg Tablet Active 800 MG PO Three times daily [...] 1 tablet by mouth three times daily TAKE ONE TABLET BY MOUTH THREE TIMES DAILY Start: 06-03-2017 End: 06-03-2017 take 1 tablet by mouth three times daily TAKE ONE TABLET BY MOUTH THREE TIMES DAILY Start: 06-03-2017 End: 06-03-2017 take 1 tablet by mouth three times daily TAKE ONE TABLET BY MOUTH THREE TIMES DAILY Start: 06-03-2017 End: 06-03-2017 take 1 tablet by mouth three times daily TAKE ONE TABLET BY MOUTH THREE TIMES DAILY Start: 06-03-2017 End: 06-03-2017 take 1 tablet by mouth three times daily TAKE ONE TABLET BY MOUTH THREE TIMES DAILY Start: 06-03-2017 End: 06-03-2017 take 1 tablet by mouth three times daily TAKE ONE TABLET BY MOUTH THREE TIMES DAILY Start: 06-03-2017 End: 06-03-2017 take 1 tablet by mouth three times daily TAKE ONE TABLET BY MOUTH THREE TIMES DAILY Start: 06-03-2017 End: 06-03-2017 take 1 tablet by mouth three times daily TAKE ONE TABLET BY MOUTH THREE TIMES DAILY Start: 06-03-2017 End: 06-03-2017 take 1 tablet by mouth three times daily TAKE ONE TABLET BY MOUTH THREE TIMES [...] 1 tablet by mouth three times daily take 1 tablet (600 mg) by oral route 3 times per day gabapentin (Neur ontin) 800 MG tablet every 8 (eight) hours. 0 Active Insulin Lispro (1 Unit Dial) [...] MEALS. PRIME WITH 2 UNITS EACH USE Insulin Lispro 100 unit/mL Insulin Pen (2 sources) Start: 04-14-2022 inject 12 [IU] by subcutaneous injection three times daily Insulin Lispro 100 unit/mL Insulin Pen Active 12 UNIT SUBCUT Three times daily April 13, 2022 11:00pm 4 ml labetalol hydrochloride 5 mg/ml cartridge (1 source) beta-Adrenergic Brooks Start: 12-28-2019 labetalol (NORMODYNE;TRAND ATE) injection 5 mg ammonium lactate 120 mg/ml topical cream (1 source) Start: 05-25-2022 ammonium lactate (Amlactin) 12 % cream 1 application every 12 (twelve) hours. 0 05/25/2022 Active lisinopril 10 mg oral tablet (20 sources) Angiotensin Converting Enzyme Inhibitor Start: 08-14-2024 take 1 tablet by mouth once daily Lisinopril 10 mg tablet Active 10 MG PO Daily August 14, 2024 12:00am Start: 04-14-2022 take 5 mg by mouth once daily Lisinopril Active 5 MG PO Daily April 13, 2022 11:00pm Start: 04-14-2022 End: 08-14-2024 take 2 tablets by mouth once daily Lisinopril 5 mg Tablet Discontinued 10 MG PO Daily April 13, 2022 11:00pm August 14, 2024 3:16pm Start: 04-14-2022 take 10 mg by mouth once daily Lisinopril Active 10 MG PO Daily April 14, 2022 12:00am Start: 08-30-2018 End: 12-12-2018 take 1 tablet by mouth once daily take 1 tablet (10 mg) by oral route once daily for 90 days Start: 06-03-2015 End: 12-09-2015 take 1 tablet by mouth once daily take 1 tablet (10 mg) by oral route once daily metFORMIN hydrochloride 500 mg oral tablet (20 sources) Biguanide Start: 11-26-2024 End: 11-21-2025 take 1 tablet by mouth three times daily TAKE 1 TABLET BY MOUTH THREE TIMES DAILY Start: 04-14-2022 End: 11-08-2024 take 1 tablet by mouth three times daily Metformin 500 mg Tablet Active 500 MG PO Three times daily April 13, 2022 11:00pm Start: 09-03-2021 take 1 tablet by jina [...] tablet by mouth twice daily at dinner take 1 tablet (500 mg) by oral route 2 times per day with morning and evening meals metFORMIN (Gluco phage) 500 MG tablet every 8 (eight) hours. 0 Active 2 ml metoclopramide 5 mg/ml prefilled syringe (1 source) Dopamine-2 Receptor Antagonist Start: 12-28-2019 End: 12-28-2019 metoclopramide (REGLAN) injection 10 mg omega-3 acid ethyl esters (long-term) 1200 mg oral capsule (6 sources) [place]-3 Fatty Acids (FISH OIL) 1200 MG CAPS Take by mouth daily 0 Active [place]-3 Fatty Acids (FISH OIL) 1200 MG CAPS (1 source) [place]-3 Fatty Acids (FISH OIL) 1200 MG CAPS Take by mouth daily 0 Active 2 ml ondansetron 2 mg/ml injection (1 source) Serotonin-3 Receptor Antagonist Start: 12-28-2019 End: 12-28-2019 ondansetron (ZOFRAN) injection 4 mg oxyCODONE hydrochloride 5 mg oral tablet (2 sources) Opioid Agonist Start: 12-28-2019 End: 12-28-2019 oxyCODONE (ROXICODONE) immediate release tablet 5 mg pyridoxine hydrochloride 25 mg oral tablet (3 sources) Start: 12-14-2023 take 1 tablet by mouth once daily Pyridoxine (Vitamin B6) 25 mg tablet Active 25 MG PO Daily December 13, 2023 11:00pm sildenafil 100 mg oral tablet (20 sources) Phosphodiesterase 5 Inhibitor Start: 12-03-2023 Sildenafil 100 mg tablet Active 100 MG PO As Directed as needed for sexual activity December 02, 2023 11:00pm Start: 12-03-2023 Sildenafil Act rahel MG TABLET December 03, 2023 12:00am Start: 10-28-2023 End: 11-27-2023 take 1 tablet by mouth once daily as needed take 1 tablet (100 mg) by oral route once daily as needed approximately 1 hour before sexual activity for 30 days Start: 09-03-2021 End: 10-25-2022 take 1 tablet [...] e flush 0.9 % injection 10 mL vitamin b6 50 mg oral tablet (20 sources) Start: 03-21-2024 End: 03-16-2025 take 1 tablet by mouth once daily Take 1 tablet by mouth once daily Start: 11-06-2021 End: 09-25-2022 take 1 tablet by mouth once daily Take 1 tablet by jina th once daily Start: 12-27-2019 End: 04-10-2021 take 1 tablet by mouth once daily take 1 tablet by ora l route daily Start: 12-12-2018 End: 04-17-2019 take 1 tablet by mouth once daily take 1 tablet by ora l route daily take 1 tablet by mouth once gogo y take 1 tablet by oral route daily Completed/Discontinued Medications Medication Drug Class(es) Dates Sig (Normalized) Sig (Original) acetaminophen 325 mg / HYDROcodone bitartrate 5 mg oral tablet (20 sources) Opioid Agonist Start: 07-13-2017 End: 10-02-2018 take 1 tablet by mouth every six hours as needed for pain take 1 tablet by oral route every [...] days. 56 tablet 0 12/28/2019 01/04/2020 Active [id number] 200 actuat albuterol 0.09 mg/actuat metered dose inhaler (20 sources) beta2-Adrenergic Agonist Start: 07-26-2024 take 1 puff(s) by mouth every six hours as needed INHALE 1 PUFF BY MOUTH EVERY 6 HOURS NEEDED Start: 12-03-2023 Albuterol Sulf ate 90 mcg/actuation HFA aerosol inhaler Active 1 INH INHALATION Every 6 hours as needed for shortness of breath or wheezing December 02, 2023 11:00pm Start: 12-03-2023 Albuterol Sulf ate Active INHALATION December 03, 2023 12:00am Start: 11-11-2023 take 1 puff(s) by mo [facility] every six hours as needed INHALE 1 PUFF BY MOUTH EVERY 6 HOURS NEEDED Start: 05-11-2022 take 1 puff(s) by mo [facility] every six hours as needed Ventolin HFA 90 mcg/actuation aerosol inhaler 05/11/2022 INHALE 1 PUFF BY MOUTH EVERY 6 HOURS NEEDED Start: 03-06-2021 take 1 puff(s) by [facility] every six hours as needed Ventolin HFA 90 mcg/actuation aerosol inhaler 03/06/2021 INHALE 1 PUFF BY MOUTH EVERY 6 HOURS NEEDED Start: 10-20-2020 take 1 puff(s) by [facility] every six hours as needed Ventolin HFA 90 mcg/actuation inhalation HFA aerosol inhaler 10/20/2020 INHALE 1 PUFF BY MOUTH EVERY 6 HOURS NEEDED Start: 04-23-2020 take 1 puff(s) by [facility] every six hours as needed Ventolin HFA 90 mcg/actuation inhalation HFA aerosol inhaler 04/23/2020 INHALE 1 PUFF BY MOUTH EVERY 6 HOURS NEEDED Start: 03-14-2019 take 1 puff(s) by [facility] every six hours as needed Ventolin HFA 90 mcg/actuation inhalation HFA aerosol inhaler 03/14/2019 INHALE 1 PUFF BY MOUTH EVERY 6 HOURS NEEDED Start: 10-05-2017 take 1 puff(s) by mo [facility] every six hours as needed Ventolin HFA 90 mcg/actuation inhalation HFA aerosol inhaler 10/05/2017 INHALE 1 PUFF BY MOUTH EVERY 6 HOURS NEEDED Start: 09-01-2017 End: 12-13-2017 take 1 puff(s) by inhalation every six hours as needed inhale 1 puff (90 mcg) by inhalation route every 6 hours as needed Start: 09-01-2017 End: 12-13-2017 take 1 puff(s) by inhalation every six hours as needed ProAir HFA 90 mcg/actuation inhalation HFA aerosol inhaler 09/01/2017 12/13/2017 inhale 1 puff (90 mcg) by inhalation route every 6 hours as needed duplicate ALPRAZolam 1 mg oral tablet (20 sources) Benzodiazepine Start: 09-17-2024 take 1 tablet by mouth three times daily take 1 tablet (1 mg) by oral route 3 times per day for 90 days..DX: F41.8 Start: 03-11-2021 End: 08-14-2024 take 1 tablet by mouth three times daily as needed for anxiety Alprazolam 1 mg tablet Active 1 MG PO Three times daily as needed for Anxiety August 14, 2024 3:12pm Start: 08-25-2020 take 1 tablet by jina th three [...] Start: 08-17-2019 take 1 tablet by jina th three times daily alprazolam 1 mg oral tablet 08/17/2019 take 1 tablet (1 mg) by oral route 3 times per day for 90 days..DX: F41.8 Start: 02-08-2019 take 1 tablet by jina th three [...] mouth once daily at bedtime as needed take 1-2 tablets by oral route once daily at bedtime as needed amoxicillin 875 mg oral tablet (20 sources) Penicillin-class Antibacterial Start: 06-04-2020 End: 06-14-2020 take 1 tablet by mouth every twelve hours take 1 tablet (875 mg) by oral route every 12 hours for 10 days take 1 tablet by mouth three dayanna es daily take 1 tablet (500 mg) by oral route 3 times per day atorvastatin 20 mg oral tablet (20 sources) HMG-CoA Reductase Inhibitor Start: 12-31-2024 take 1 tablet by mouth once daily take 1 tablet (20 mg) by oral route once daily Start: 11-15-2024 take 1 tablet by jina th once daily take 1 tablet (20 mg) by oral route once daily Start: 08-14-2024 take 1 tablet by jina th once daily Atorvastatin 20 mg tablet Active 20 MG PO Daily August 14, 2024 12:00am Start: 07-27-2022 take 1 tablet by jina th once daily take 1 tablet (20 mg) by oral route once daily Start: 04-14-2022 End: 08-14-2024 take 2 tablets by mouth once daily at bedtime Atorvastatin 10 mg Tablet Discontinued 20 MG PO Daily at bedtime April 13, 2022 11:00pm August 14, 2024 3:16pm Start: 04-14-2022 take 20 mg by mouth once daily at bedtime Atorvastatin Active 20 MG PO Daily at bedtime April 14, 2022 12:00am Start: 04-14-2022 take 10 mg by mouth once daily at bedtime Atorvastatin Active 10 MG PO Daily at bedtime April 14, 2022 12:00am Start: 04-22-2021 take 1 tablet by jina th once [...] tablet by mouth once daily at bedtime take 1 tablet (10 mg) by oral route once daily at bedtime 24 hr buPROPion hydrochloride 150 mg extended release oral tablet (20 sources) Aminoketone Start: 12-17-2020 End: 06-15-2021 take 1 tablet by mouth once daily take 1 tablet (150 mg) by oral [...] tablet by mouth once daily at mealtime TAKE ONE TABLET BY MOUTH ONCE DAILY BEFORE FIRST MEAL OF THE DAY ceFAZolin (ANCEF) 2 g in dextrose 5 % 100 mL IVPB (1 source) Start: 12-28-2019 End: 12-28-2019 ceFAZolin (ANCEF) 2 g in dextrose 5 % 100 mL IVPB cephalexin 500 mg oral capsule (4 sources) Cephalosporin Antibacterial Start: 12-03-2023 End: 08-14-2024 take 1 capsule by mouth four times daily Cephalexin 500 mg capsule Discontinued 500 MG PO Four times daily December 02, 2023 11:00pm August 14, 2024 3:12pm clindamycin 300 mg oral capsule (20 sources) Lincosamide Antibacterial Start: 04-05-2022 End: 04-19-2022 take 1 capsule by mouth twice daily take 1 capsule (300 mg) by oral route 2 times per day for 14 days End: 08-12-2015 take 1 capsule by mouth every six hours take 1 capsule (300 mg) by oral route every 6 hours dexamethasone 1 mg oral tablet (20 sources) Corticosteroid Start: 11-06-2015 check 8 am Cor tisol after taking 1 mgm Dexamethasone at 11 pm Start: 11-06-2015 take 8 tablets by [facility] in the morning, then take 1 tablet by mouth in the evening dexamethasone 1 mg oral tablet 11/06/2015 check 8 am Cortisol after taking 1 mgm Dexamethasone at 11 pm doxepin hydrochloride 50 mg oral capsule (20 sources) Tricyclic Antidepressant Start: 04-14-2022 take 3-4 capsules by mouth at bedtime TAKE 3 TO 4 CAPSULES BY MOUTH AT BEDTIME Start: 01-12-2022 take 3-4 capsules by mouth at bedtime doxepin 50 mg capsule 01/12/2022 TAKE 3 TO 4 CAPSULES BY MOUTH AT BEDTIME Start: 09-15-2021 End: 10-15-2021 take 3-4 capsules by mouth at bedtime TAKE 3 TO 4 CAPSULES BY MOUTH [...] take 1 capsule by mouth once daily take 1 capsule (60 mg) by oral route once daily empagliflozin 25 mg oral tablet (20 sources) Sodium-Glucose Cotransporter 2 Inhibitor Start: 11-30-2024 take 1 tablet by mouth once daily in the morning take 1 tablet (25 mg) by oral route once daily in the morning Start: 12-23-2020 take 1 tablet by jina once daily Empagliflozin (Jardiance) 25 mg Tablet Active 25 MG PO Daily April 13, 2022 11:00pm Start: 07-21-2020 take 1 tablet by jina once daily in the morning Jardiance 25 mg oral tablet 07/21/2020 take 1 tablet (25 mg) by oral route once daily in the morning Start: 08-28-2019 take 1 tablet by jina once daily in the morning Jardiance 25 mg oral tablet 08/28/2019 take 1 tablet (25 mg) by oral route once daily in the morning Start: 2015 End: 11-12-2015 take 1 tablet by mouth once daily in the morning take 1 tablet (25 mg) by oral route once daily in the morning empagliflozin 25 mg / linagliptin 5 mg oral tablet (20 sources) Dipeptidyl Peptidase 4 Inhibitor, Sodium-Glucose Cotransporter 2 Inhibitor Start: 11-05-2015 End: 2015 take 1 tablet by mouth once daily in the morning take 1 tablet by oral route once daily in the morning Fish Oil Extra Strength (9 sources) take 2 capsules by mouth once daily take 2 capsules by oral route daily Fish Oil Extra Strength 435-880 mg oral capsule (20 sources) take 2 capsules by mouth once daily Fish Oil Extra Strength 435-880 mg oral capsule take 2 capsules by oral route daily FLUoxetine 10 mg oral capsule (13 sources) Serotonin Reuptake Inhibitor Start: 11-15-2024 take 1 capsule by mouth once daily take 1 capsule (10 mg) by oral route once daily for 30 days Start: 12-03-2023 Fluoxetine Act rahel MG December 03, 2023 12:00am Start: 11-14-2023 take 1 capsule by mo [facility] once daily Fluoxetine 10 mg capsule Active 10 MG PO Daily December 02, 2023 11:00pm Start: 01-25-2023 End: 03-26-2023 take 1 capsule by mouth once daily take 1 capsule (10 mg) by oral route once daily for 30 days fluticasone furoate 0.0275 mg/actuat metered dose nasal spray (20 sources) Corticosteroid Start: 08-05-2020 End: 09-03-2021 take 2 puff(s) by inhalation twice daily inhale 2 puffs by nasal route 2 times a day furosemide 20 mg oral tablet (20 sources) Loop Diuretic Start: 11-30-2024 take 1 tablet by mouth once daily TAKE 1 TABLET BY MOUTH ONCE DAILY Start: 04-14-2022 take 1 tablet by jina th once daily Furosemide 20 mg Tablet Active 20 MG PO Daily April 13, [...] take 1 tablet by mouth once daily take 1 tablet by oral route daily for 30 days Start: 06-03-2015 End: 07-24-2015 take 1 tablet by mouth once daily take 1 tablet by oral route daily for 30 days Hair,Skin and Nails (9 sources) Start: 02-21-2020 End: 01-25-2023 take 1 tablet by mouth once daily take 1 tablet by oral route daily Hair,Skin and Nails oral tablet (20 sources) [...] sources) Insulin Analog Start: 10-03-2015 End: 10-03-2015 inject 25 units at breakfast and at bedtime Start: 10-03-2015 End: 10-03-2015 Levemir FlexTouch 100 unit/m L (3 mL) subcutaneous insulin pen 10/03/2015 10/03/2015 inject 25 units at breakfast and at bedtime changed to lantus solostar 3 ml insulin glargine 100 unt/ml pen injector (20 sources) Insulin Analog Start: 09-21-2024 inject 2 [IU] by subcutaneous injection once daily INJECT 25 UNITS SUBCUTANEOUSLY ONCE DAILY IN THE MORNING, PRIME PEN WITH 2 UNITS BEFORE EACH USE Start: 02-13-2024 inject 2 [IU] by sub cutaneous injection once daily INJECT 25 UNITS SUBCUTANEOUSLY ONCE DAILY IN THE MORNING, PRIME PEN WITH 2 UNITS BEFORE EACH USE Start: 01-12-2023 inject 2 [IU] by sub cutaneous injection once daily inject 25 units by subcutaneous route every AM, prime pen with 2 units before each use Start: 07-27-2022 inject 2 [IU] by sub cutaneous injection [...] each use Start: 02-15-2019 End: 08-28-2019 inject 25 units every mornin g, prime pen with 2 units each use Start: 02-15-2019 End: 08-28-2019 inject [...] use Start: 11-30-2016 End: 12-13-2017 inject 20 units at breakfast and 20 units at bedtime Start: 11-30-2016 End: 12-13-2017 inject 20 [IU] by subcutaneous injection at breakfast Basaglar KwikPen 100 unit/mL (3 mL) subcutaneous insulin pen 11/30/2016 12/13/2017 inject 20 units at breakfast and 20 units at bedtime Start: 03-10-2016 End: 07-15-2016 inject 25 [IU] by subcutaneous injection at breakfast INJECT 25 UNITS SUBCUTANEOUSLY AT BREAKFAST AND BEDTIME Start: 03-10-2016 End: 07-15-2016 Lantus Solostar 100 unit/mL (3 mL) subcutaneous insulin pen 03/10/2016 07/15/2016 INJECT 25 UNITS SUBCUTANEOUSLY AT BREAKFAST AND BEDTIME Per LLS ok to change to Basaglar insulin glargine (LANTUS;BASAGLAR) 100 UNIT/ML injection pen Inject 25 Units into the skin daily 0 Active 3 ml insulin lispro 100 unt/ml pen injector (20 sources) Insulin Analog Start: 11-03-2023 inject 12 unit s 3 times daily with meals, prime 2 units each use. Start: 09-21-2022 End: 03-15-2023 INJECT 12 UNITS SUBCUTANEOUS LY WITH MEALS. PRIME WITH 2 UNITS EACH USE Start: 06-10-2022 insulin lispro (HumaLOG) 100 UNIT/ML injection Start: 04-14-2022 inject 12 [IU] by jacques bcutaneous injection three times daily Insulin Lispro Active 12 UNIT SUBCUT Three times daily April 14, 2022 12:00am Start: 04-14-2022 inject 12 [IU] by jacques bcutaneous injection three times daily Insulin Lispro Active 12 UNIT SUBCUT Three times daily April 13, 2022 11:00pm Start: 08-05-2020 End: 01-15-2022 inject 12 units w/meals, [place] me w/ 2 units each use Start: 08-05-2020 End: 01-15-2022 Humalog KwikPen Insulin 100 unit/mL subcutaneous insulin pen 08/05/2020 01/15/2022 inject 12 units w/meals, prime w/ 2 units each use Start: 04-08-2020 End: 07-30-2020 INJECT 12 UNITS SUBCUTANEOUS LY WITH MEALS --PRIME PEN WITH 2 UNITS EACH USE Start: 10-11-2019 insulin lispro 100 unit/mL subcutaneous insulin pen 10/11/2019 INJECT 12 UNITS SUBCUTANEOUSLY WITH MEALS --PRIME PEN WITH 2 UNITS EACH USE Start: 05-28-2019 End: 11-26-2019 inject 10 units with each me al, prime pen with 2 units each use. Start: 05-28-2019 End: 11-26-2019 Humalog KwikPen Insulin 100 unit/mL subcutaneous insulin pen 05/28/2019 11/26/2019 inject 10 units with each meal, prime pen with 2 units each use. Start: 12-12-2018 Humalog KwikPe n Insulin 100 unit/mL subcutaneous insulin pen 12/12/2018 inject 7 units with each meal, prime pen with 2 units each use. Start: 03-20-2018 End: 10-02-2018 inject 10 units with each me al and 5 units with snacks, Start: 03-20-2018 End: 10-02-2018 Humalog U-100 Insulin 100 un it/mL subcutaneous solution 03/20/2018 10/02/2018 inject 10 units with each meal and 5 units with snacks, has not taken since stopoing VGO Start: 11-30-2016 End: 12-13-2017 inject 6 units TID with meal s. prime pen with 2 units each use. Start: 11-30-2016 End: 12-13-2017 Humalog KwikPen 100 unit/mL subcutaneous insulin pen 11/30/2016 12/13/2017 inject 6 units TID with meals. prime pen with 2 units each use. insulin lispro ( HUMALOG) 100 UNIT/ML injection vial Inject 12 Units into the skin 3 times daily (before meals) 0 Active ketorolac tromethamine 10 mg oral tablet (20 sources) Nonsteroidal Anti-inflammatory Drug, Cyclooxygenase Inhibitor Start: 02-21-2020 End: 04-08-2020 take 1 tablet by mouth every six hours as needed take 1 tablet (10 mg) by oral [...] 24hrs per task Lantus SoloStar 100 UNIT/ML Subcuta (9 sources) Start: 10-14-2020 End: 12-23-2020 inject 2 [IU] by subcutaneous injection once daily INJECT 25 UNITS SUBCUTANEOUSLY ONCE DAILY IN THE MORNING PRIME PEN WITH 2 UNITS BEFORE EACH USE. Lantus SoloStar 100 UNIT/ML Subcutaneous Solution Pen-injector [...] 1 capsule by mouth three times daily take 1 capsule (40 mg) by oral route three times a day lidocaine hydrochloride 40 mg/ml topical cream (20 sources) Antiarrhythmic, Amide Local Anesthetic Start: 09-17-2021 End: 12-16-2021 apply once daily, to top of both feet (midfoot) with occlusive bandage. Discontinue if rash occurs. meloxicam 15 mg oral tablet (20 sources) Nonsteroidal Anti-inflammatory Drug Start: 11-30-2024 take 1 tablet by mouth once daily take 1 tablet (15 mg) by oral route once daily Start: 04-14-2022 take 1 tablet by jina th once daily Meloxicam 15 mg Tablet Active 15 MG PO Daily April 13, 2022 11:00pm Start: 05-29-2021 take 1 tablet by jina th once daily meloxicam 15 mg oral tablet 09/03/2021 take 1 tablet (15 mg) by oral route once daily Start: 12-23-2020 take 1 tablet by jina once daily meloxicam 15 mg oral tablet 12/23/2020 take 1 tablet (15 mg) by oral route once daily Start: 04-23-2020 take 1 tablet by jina once daily meloxicam 15 mg oral tablet 04/23/2020 take 1 tablet (15 mg) by oral route once daily Start: 11-26-2019 take 1 tablet by jina once daily meloxicam 15 mg oral tablet 11/26/2019 take 1 tablet (15 mg) by oral route once daily methylPREDNISolone 4 mg oral tablet (20 sources) Corticosteroid Start: 03-16-2022 End: 03-22-2022 take by oral route as directed per package instructions for 6 days Start: 06-04-2020 End: 08-05-2020 take as directed 24 hr metoprolol succinate 50 mg extended release oral tablet (20 sources) beta-Adrenergic Brooks Start: 12-25-2024 Take 3 tablets (150mg) daily. Start: 08-14-2024 Metoprolol Suc cinate 50 mg tablet extended release 24 hr Active 150 MG PO daily August 14, 2024 12:00am Start: 03-21-2024 take 2 tablets by mo [facility] once daily take 2 tablets (100 mg) by oral route once daily Start: 04-14-2022 End: 08-14-2024 Metoprolol Succinate 25 mg T ablet Extended Release 24 Hr Discontinued 50 MG PO Daily April 13, 2022 11:00pm August 14, 2024 3:14pm Start: 04-14-2022 take 50 mg by mouth once daily Metoprolol Succinate Active 50 MG PO Daily April 14, 2022 12:00am Start: 04-14-2022 take 25 mg by mouth once daily Metoprolol Succinate Active 25 MG PO Daily April 13, 2022 11:00pm Start: 10-25-2018 End: 01-25-2019 take 0.5 tablet by mouth twice daily TAKE 1/2 (ONE-HALF) TABLET BY MOUTH TWICE DAILY Start: 09-01-2017 End: 06-19-2018 take 0.5 tablet by mouth twice daily take 0.5 tablet by oral route 2 times a day End: 08-05-2020 take 0.5 tablet by mouth twice daily take 0.5 tablet by oral route 2 times a day take [facility] metoprolol tartrate (LOPRESSOR) 25 MG tablet Take 25 mg by mouth 2 times daily 0 Active mupirocin 0.02 mg/mg topical ointment (20 sources) RNA Synthetase Inhibitor Antibacterial Start: 01-18-2022 End: 02-01-2022 apply a small amount to the 4th by topical route 2 times per day for 14 days, cover with bandage Start: 01-18-2022 mupirocin (Jolly troban) 2 % ointment Start: 09-17-2021 End: 10-01-2021 mupirocin 2 % topical ointme nt 09/17/2021 10/01/2021 apply a small amount to the 4th by topical route 2 times per day for 14 days, cover with bandage [place]-3 Fatty Acids (Fish Oil) Capsule (8 sources) Start: 04-14-2022 End: 12-03-2023 take 1 capsule by mouth once daily [place]-3 Fatty Acids (Fish Oil) Capsule Discontinued 1000 MG PO Daily April 13, 2022 11:00pm December 03, 2023 3:38pm Start: 04-14-2022 End: 12-03-2023 take 1 capsule by mouth once daily [place]-3 Fatty Acids (Fish Oil) Capsule Discontinued 1000 MG PO Daily April 14, 2022 12:00am December 03, 2023 4:38pm Start: 04-14-2022 take 1 capsule by [facility] once daily [place]-3 Fatty Acids (Fish Oil) Capsule Active 1000 MG PO Daily April 13, 2022 11:00pm Start: 04-14-2022 take 1 capsule by [facility] once daily [place]-3 Fatty Acids (Fish Oil) Capsule Active 1000 MG PO Daily April 14, 2022 12:00am omeprazole 20 mg delayed release oral capsule (20 sources) Proton Pump Inhibitor Start: 07-10-2024 take 1 capsule by mouth once daily before mealtime take 1 capsule (20 mg) by oral route once daily before a meal for 90 days Start: 08-04-2023 End: 05-12-2024 take 1 capsule by mouth once daily before mealtime take 1 capsule (20 mg) by oral route once daily before a meal for 90 days Start: 02-17-2022 End: 07-22-2023 take 1 capsule by mouth once daily before mealtime omeprazole 20 mg capsule,delayed release 07/27/2022 07/22/2023 take 1 capsule (20 mg) by oral route once daily before a meal for 90 days Start: 02-21-2020 End: 08-14-2024 take 1 tablet by mouth once daily as needed take 1 tablet by oral route daily as needed End: 04-17-2019 take 1 capsule by mouth once daily take 1 capsule by oral route daily take 1 tablet by mouth once gogo y Prilosec OTC 20 mg oral tablet,delayed release (DR/EC) take 1 tablet by oral route daily parking placard 1 (20 sources) Start: 08-30-2018 parking placar d 1 08/30/2018 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 good for 5 yrs until 08/30/23 Potassium Chloride (20 sources) Start: 09-09-2021 End: 10-09-2021 take 1 capsule by mouth once daily Take 1 capsule by mouth once daily for 30 days Start: 09-09-2021 End: 10-09-2021 take 1 capsule [...] take 1 capsule by mouth once daily take 1 capsule by oral route daily Start: 06-03-2015 End: 07-24-2015 take 1 capsule by mouth once daily take 1 capsule (10 meq) by oral route once daily for 30 days sertraline 50 mg oral tablet (20 sources) Serotonin Reuptake Inhibitor Start: 11-26-2019 End: 01-25-2020 take 1 tablet by mouth once daily take 1 tablet (50 mg) by oral route once daily for 30 days thiamine 50 mg oral tablet (20 sources) Start: 12-27-2019 End: 07-22-2023 take 1 tablet by mouth once daily Take 1 tablet by mouth once daily Start: 12-12-2018 End: 04-17-2019 take 1 tablet by mouth once daily take 1 tablet by ora l route daily Thiamine HCl ( TAMIN B-1 PO) Take by mouth daily 0 Active Ventolin HFA 108 (90 Base) MCG/ACT (9 sources) Start: 02-10-2021 End: 03-19-2021 take 1 puff(s) by mouth every six hours as needed INHALE 1 PUFF BY MOUTH EVERY 6 HOURS NEEDED Ventolin HFA 108 (90 Base) MCG/ACT Inhalation [...] take 1 tablet by mouth once daily take 1 tablet by oral route daily Start: 03-01-2017 take 2 tablets by mo ut once daily Vitamin B-12 1,000 mcg oral [...] and depressive disorder] Onset: 6 Chronic Adame (18 sources) Partial thickness burn of toe; Translations: [Burn of second degree of unspecified toe(s) (nail), initial encounter] 04-01-2022 Episodic Comment on above: Problem List clean-u p per request of Phys. EHR Cmte Chronic kidney disease (20 sources) Chronic kidney [...] ] Onset: 6 04-14-2022 Chronic Esophageal disorders (20 sources) Gastro-esophageal reflux disease without esophagitis Onset: 2 Chronic Essential hypertension (20 sources) Benign essential hypertension; Translations: [Malignant essential hypertension] Onset: 5 Chronic External cause codes: Fall (20 sources) Unspecified fall; Translations: [Fall] Onset: 6 Hypertension with complications and secondary hypertension (20 sources) Other unspecified secondary hypertension; Translations: [Hypertension secondary to endocrine disorders] Onset: 7 Chronic Malaise and fatigue (20 sources) Other malaise and fatigue; Translations: [Other fatigue] Onset: 6 Episodic Mood disorders (20 sources) Depressive disorder, not elsewhere classified; Translations: [Depressive disorder] Onset: 6 Chronic Other aftercare (3 sources) Surgical follow-up; Translations: [Encounter for removal of sutures] 12-14-2023 Episodic Other circulatory disease (20 sources) Peripheral vascular disease; Translations: [Other specified peripheral vascular diseases] Onset: 2 Chronic Other circulatory disease (20 sources) Other specified peripheral vascular diseases Onset: 2 Chronic Other liver diseases (20 sources) Fatty (change of) liver, not elsewhere classified Onset: 2 Chronic Other liver diseases (12 sources) Steatosis of liver; Translations: [Other chronic nonalcoholic liver disease] Onset: 3 Chronic Other lower respiratory disease (2 sources) Dyspnea; Translations: [Shortness of breath] 07-19-2024 Episodic Other male genital disorders (1 source) Impotence [...] 6 04-14-2022 Chronic Other nervous system disorders (8 sources) Neuropathy; Translations: [Polyneuropathy, unspecified] 04-14-2022 Chronic [...] (pediatric) Onset: 6 Chronic Residual codes; unclassified (20 sources) Tobacco use; Translations: [Tobacco use disorder] Onset: 6 04-14-2022 Episodic Residual codes; unclassified (8 sources) Tobacco use and exposure - finding; Translations: [Tobacco use] 04-14-2022 Episodic Sprains and strains (5 sources) Traumatic rupture of rotator cuff; Translations: [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, initial encounter] Onset: 0 12-28-2019 Episodic Substance-related disorders (20 sources) Tobacco use disorder; Translations: [Nicotine dependence, unspecified, uncomplicated] Onset: 6 Chronic Past or Other Problems Problem Classification Problem [...] for closed fracture] Onset: 03-16-2022 04-01-2022 Episodic Comment on above: Problem List clean-u p per request of Phys. EHR Cmte Immunizations and screening for infectious disease (20 sources) Need for prophylactic vaccination and inoculation against influenza; Translations: [Encounter for immunization] Onset: 04-20-2018 Episodic Mood disorders (20 sources) Major depressive [...] body of other part of head, initial encounter; Translations: [Laceration - injury] Onset: 07-24-2015 12-03-2023 Episodic Other aftercare (13 sources) Encounter for [...] Onset: 09-17-2021 Episodic Other connective tissue disease (20 sources) Foot pain; Translations: [Pain in limb] Onset: 09-18-2021 Episodic Other connective tissue disease (20 sources) Neuralgia and neuritis, unspecified Onset: 02-17-2022 [...] lower respiratory disease (20 sources) Shortness of breath; Translations: [Shortness of breath] Onset: 08-05-2015 Episodic Other lower respiratory disease [...] cyst Onset: 01-25-2019 Episodic Other skin disorders (20 sources) Foot callus; Translations: [Corns and callosities] Onset: 09-18-2021 Episodic Other skin disorders (20 sources) Corns and callosities Onset: 09-17-2021 Episodic Other skin disorders (20 sources) Personal history of diseases of the skin and subcutaneous tissue Onset: 02-17-2022 Episodic Residual codes; unclassified (19 sources) [place] Onset: 11-05-2015 Episodic Residual codes; unclassified (15 sources) Other plastic surgery for unacceptable cosmetic appearance Onset: 02-26-2019 Episodic Residual codes; unclassified (20 sources) [place] Onset: 11-05-2015 Episodic Residual codes; unclassified (20 sources) Encounter for cosmetic surgery Onset: 02-26-2019 Episodic Residual codes; unclassified (20 sources) Localized edema Onset: 03-16-2022 Episodic Residual codes; unclassified (4 sources) Other specified health status Onset: 04-26-2024 Episodic Skin and subcutaneous tissue infections (20 sources) Abscess of toe of left foot; Translations: [Cellulitis and abscess of toe, unspecified] Onset: 09-17-2021 Episodic Spondylosis; intervertebral disc disorders; other back problems (20 sources) Lumbago; Translations: [Low back pain] Onset: 11-26-2019 Episodic Unclassified (20 sources) Anxiety state, unspecified Onset: 09-03-2021 Unclassified (1 source) Nondependent abuse of drugs; alcohol abuse; unspecified Onset: 12-31-2024 Viral infection (20 sources) Viral infection, unspecified Onset: 06-04-2020 Episodic Results Test Name Value Interpretation Reference Range Facility X-ray reportOrdered By: Jakob Torres on 07-19-2024 Study report [facility] [place] [address] XRay Report Signed Patient: Geremias Melchor MR#: [id number] : 1965 Acct:[id number] Age/Sex: 58 / M ADM Date: 5 Loc: RT Room: Type: [facility] Attending Dr: Ayanna CAMPOS Copies to: BETH Mccabe~ Ordering Provider: BETH Mccabe Date of Service: 07/19/24 XR/XR chest 2V*: SOB Chest 2 views CLINICAL HISTORY: Chronic shortness of breath. COMPARISON: None FINDINGS: Low lung volumes. Mild left basilar atelectasis. No consolidation pneumothoraxpleural effusion or free air. Heart is normal in size. XR/XR chest 2V* IMPRESSION: MILD LEFT BASILAR ATELECTASIS. NO CONSOLIDATION TO SUGGEST PNEUMONIA. Impression dictated by: Dionte Torres Jr., D.O.07/19/2024 4:33 PM Dictation Location: RADIO-PC-19 Transcribed By: KINJAL 07/19/24 1633 Dictated By: Dionte Torres Jr DO 07/19/24 1633 Signed By: 07/19/24 1633 [facility] XR chest 2V*on 07-19-2024 XR chest 2V* [facility] [place] [address] [place] [address] XRay Report Signed Patient: Geremias Melchro MR#: [id number] : 1965 Acct:[id number] Age/Sex: 58 / M ADM Date: 07/19/24 Loc: RT Room: Type: [facility] Attending Dr: Ayanna CAMPOS Copies to: BETH Mccabe Ordering Provider: BETH Mccabe Date of Service: 07/19/24 XR/XR chest 2V*: SOB Chest 2 views CLINICAL HISTORY: Chronic shortness of breath. COMPARISON: None FINDINGS: Low lung volumes. Mild left basilar atelectasis. No consolidation pneumothorax pleural effusion or free air. Heart is normal in size. XR/XR chest 2V* IMPRESSION: MILD LEFT BASILAR ATELECTASIS. NO CONSOLIDATION TO SUGGEST PNEUMONIA. Impression dictated by: Dionte Torres Jr., D.O.07/19/2024 4:33 PM Dictation Location: RADIO--19 Transcribed By: KINJAL 07/19/24 1633 Dictated By: Dionte Torres Jr, DO 07/19/24 1633 Signed By: 07/19/24 1633 Normal [facility] Cardiology Office/Clinic Not michele 06-21-2024 Cardiology Office/Clinic Note Chief Complaint Follow-up visit for hypertension, hypercholesterolemia History of Present Illness This is a 58-year-old male with a past cardiac history of diabetes, hypertension, hypercholesterolemia. He has a history of LVH with mild diastolic dysfunction from 2019. He was seen in this office on March 30, 2023 for preop evaluation. He was complaining of some chest tightness across the left side of his chest occurring almost on a daily basis. He was lightheaded upon standing at times. He had shortness of breath and felt like he had no energy. A stress test had been completed that morning and it was negative for stress-induced ischemia, EF 76%. He was cleared for surgery, which was a right ankle and subtalar joint fusion, secondary closure of wound, incision of bone and Achilles tendon myotomy. He was last seen in this office on November 14, 2023 for 6-month follow-up visit. He was doing fairly well at that time but continued to have no energy. He mentions some slight shortness of breath with activity and twinges of chest pain, not cardiac in nature. He had known sleep apnea but does not wear CPAP machine. He had gained approximately 15 pounds due to not being very active. He was running slightly tachycardic. His metoprolol succinate was increased for better heart rate control. An echocardiogram was ordered to evaluate his heart structure and function. Today Geremias states that he continues to be short of breath with exertion. This is not new and has been going on for quite some time. He does not have much energy. His twinges of pain have gotten better, but he does have some tightness to the center of his chest that lasts a couple of minutes and can happen 2-3 times a day. He does not have any chest pain with activity, but rather with sitting still. Overall his chest pain is better. He does not use his inhaler like he should. He continues to smoke. He has gained some weight. Cardiology Problem List 1. Diabetes mellitus. 2. Hypertensive heart disease. A. Mild to moderate LVH with mild diastolic dysfunction on echo, 10/12/18. 3. Hypercholesterolemia. Cardiac Testing Echocardiography > 10/12/18: EF 45-50% with proximal to mid-inferolateral akinesis and distal septal and apical hypokinesis, mild to moderate LVH, mild diastolic dysfunction > 12/29/2020: EF 50-55%. Normal chamber dimensions. Normal valve structure with no significant stenosis or regurgitation. > 01/11/2024: EF 52%. Left ventricular wall thickness is mildly increased, diastolic function parameters are normal. Normal chamber dimensions. Normal valve structure with no significant stenosis or regurgitation. No significant interval change from 12/29/2020. Stress Testing > 01/09/19: (Lexiscan MPI) No ischemic ECG changes, normal MPI, EF 69% > 12/16/2020: (Lexiscan stress test) No myocardial perfusion defects noted. EF 56%. Stress ECG is normal. > 03/30/2023: (Lexiscan stress test) normal study after pharmacologic stress. Compared to prior study from 12/29/2020 there is no significant interval change. Stress ECG is normal. No myocardial perfusion defects noted per imaging. EF 76%. Review of Systems Constitutional: Lack of energy Eye: No recent visual problems ENMT:No ear pain, nasal congestion, sore throat Respiratory: Shortness of breath Cardiovascular: Occasional chest tightness that last 2 to 3 minutes at rest, no chest pain with activity Gastrointestinal: No nausea, vomiting, diarrhea Genitourinary: No hematuria Hugo/Lymph: Negative for bruising tendency, swollen lymph glands Endocrine: Negative for excessive thirst, excessive hunger Musculoskeletal: Ankle edema, status post fracture Integumentary: No rash, pruritus, abrasions Neurologic: Alert & oriented X 4 Psychiatric: No anxiety, depression Physical Exam Vitals & Measurements HR: 96 (Peripheral) BP: 150/90 SpO2: 98% HT: 183 cm WT: 115.7 kg WT: 115.7 kg (Dosing) BMI: 34.55 Additional Vitals BP Position/Location: Sitting, Left arm General: Alert and oriented, well nourished, no acute distress. Overweight Eye: PERRL, EOMI, normal conjunctiva. HENT: Normocephalic, normal hearing, moist oral mucosa, no scleral icterus. Neck: Supple, non-tender, no carotid bruits, no JVD, no lymphadenopathy. Lungs: Clear to auscultation and percussion, non-labored respiration. Heart: Normal rate, regular rhythm, no murmur, gallop or edema. Abdomen: Soft, non-tender, non-distended, normal bowel sounds, no masses. Musculoskeletal: Normal range of motion and strength, mild lower extremity edema Skin: Skin is warm, dry and pink, no rashes or lesions. Neurologic: Awake, alert, and oriented X3. Psychiatric: Cooperative, appropriate mood and affect. Assessment/Plan 1. Hypertension (Established- stable) increase metoprolol succinate to 75 mg daily, take Lasix 20 mg daily. Ordered: Referral to Pulmonology 2. LVH (left ventricular hypertrophy) (Established- stable) last echo showed ventricular wall thickness is mildly increased. Working t (more content not included)... Normal [facility] Cardiac Echocardiogram Trans thoracicon 01-13-2024 Cardiac Echocardiogram Transthoracic TRANSTHORACIC ECHOCARDIOGRAM Study Date/Time: Jan 11 2024 3:48PM BP: 148 / 90 HR: 88 bpm HT/WT: 180.3 cm (71 in) / 108.9 kg (239.5 lb) BSA/BMI: 2.28 m^2 / 33.5 kg/m^2 ORDERING PROVIDER: Ayanna Brooks INTERPRETING PHYSICIAN: Bo Pearce DO SIZE CUTTER: Vonda Paige RDCS, RVT ---- INDICATIONS: Dyspnea. ---- CONCLUSIONS SUMMARY: 1. Left ventricle: Wall thickness is mildly increased. The calculated ejection fraction is 52%. Left ventricular diastolic function parameters are normal. 2. Otherwise normal chamber dimensions. 3. Normal valve structure with no significant stenosis or regurgitation. 4. Compared to a prior echocardiogram from 12/29/20, there is no significant interval change. ---- STUDY DATA: M-mode, complete 2D, complete spectral Doppler, and color Doppler. Study status: Routine. Patient status: Outpatient. Location: Echo laboratory 4. Procedure: Transthoracic echocardiography was performed. Image quality was adequate. ECG RHYTHM: Sinus rhythm ---- FINDINGS LEFT VENTRICLE: The cavity size is normal. Wall thickness is mildly increased. The calculated ejection fraction is 52%. Wall motion is normal; there are no regional wall motion abnormalities. Left ventricular diastolic function parameters are normal. LEFT ATRIUM: The atrium is normal in size. RIGHT VENTRICLE: The cavity size is normal. Systolic function is normal. RIGHT ATRIUM: The atrium is normal in size. MITRAL VALVE: Normal (thickness) leaflets. Doppler: There is no significant regurgitation. AORTIC VALVE: Trileaflet; normal thickness leaflets. Doppler: There is no stenosis. There is no significant regurgitation. TRICUSPID VALVE: Normal thickness leaflets. Doppler: There is trivial regurgitation. PULMONIC VALVE: Leaflets not well visualized. Doppler: There is trivial regurgitation. AORTA: Aortic root: The aortic root is normal. PERICARDIUM: There is no pericardial effusion. SYSTEMIC VEINS: Inferior vena cava: The vessel is normal in size. The respirophasic diameter changes are in the normal range (greater than or equal to 50%). ---- Measurements Left ventricle Value 12/29/2020 Reference LV ID, ED, PLAX, chordal 4.85 cm 5.63 LV ID, ES, PLAX maximal 3.55 cm 4.49 LV fx shortening, PLAX 26.77 % 20.22 25 - 43 LV PW thickness, ES, PLAX 1.09 cm 1.63 LV PW thickness, ED (H) 1.2 cm 1.1 0.6 - 1.0 LV E/e', medial 7.93 7.41 LVOT Value 12/29/2020 Reference LVOT peak velocity, S 0.99 m/sec 0.97 LVOT VTI, S 19.77 cm 18.66 LVOT peak gradient, S 3.9 mm Hg 3.8 Ventricular septum Value 12/29/2020 Reference IVS thickness, ED (H) 1.1 cm 1.1 0.6 - 1.0 IVS thickness, ES 1.7 cm 1.7 Right ventricle Value 12/29/2020 Reference RV ID, ED, PLAX 4.43 cm 3.79 Left atrium Value 12/29/2020 Reference LA volume/bsa, ES, 2-p 20.8 ml/m^2 23.4 LA ID, A-P, ES, MM (H) 4.09 cm 4.80 3.00 - 4.00 LA/aortic root ratio, MM 1.19 1.22 Aortic valve Value 12/29/2020 Reference Aortic valve peak velocity, S 1.29 m/sec 1.16 Aortic valve mean velocity, S 0.94 m/sec 0.84 Aortic mean gradient, S 3.86 mm Hg 3.15 Aortic peak gradient, S 6.63 mm Hg 5.39 Mitral valve Value 12/29/2020 Reference Mitral E-wave peak velocity 0.58 m/sec 0.59 Mitral A-wave peak velocity 0.75 m/sec 0.73 Mitral deceleration time 244.5 ms 269.4 Mitral pressure half-time 71 ms 78 Mitral E/A ratio, peak 0.78 0.81 Mitral valve area, PHT, DP 3.10 cm^2 2.82 Pulmonic valve Value 12/29/2020 Reference Pulmonic valve peak velocity, S 1.14 m/sec 1.15 Pulmonic valve mean velocity, S 1.14 m/sec 1.15 Pulmonic peak gradient, S 5.2 mm Hg 5.3 Pulmonic regurg velocity, ED 1.21 m/sec Pulmonic regurg gradient, ED 5.9 mm Hg Aortic root Value 12/29/2020 Reference Aortic root ID STJ, ED 2.70 cm 2.34 Aortic root ID, ED, MM 3.42 cm 3.92 Ascending aorta Value 12/29/2020 Reference Ascending aorta ID, A-P, S 3.6 cm Ascending aorta ID/bsa, A-P, S 1.6 cm/m^2 Legend: (L) and (H) ericka values outside specified reference range. Electronically signed by Bo Pearce DO 01/13/2024 07:32 Final Dictated by: Bo Pearce DO Dictated DT/TM: 01/13/2024 7:32 am Signed (more content not included)... Normal [facility] Comment on above: Order Comment: merrill galan Laboratory - Chemistry and C hemistry - challengeon 11-14-2023 Albumin (U) [Mass/Vol] 21.2 Invalid Interpretation Code <17.0 [facility] Albumin [Mass/Vol] 4.60 g/dL Invalid Interpretation Code 3.7-5.0 [facility] Albumin/Creatinine DL <= 20 mg/L (U) [Mass ratio] 43.1 mg/g Invalid Interpretation Code 0.0-30.0 [facility] Albumin/Globulin [Mass ratio] 1.3 {ratio} Invalid Interpretation Code 1.0-2.4 [facility] ALP [Catalytic activity/Vol] 83.0 U/L Invalid Interpretation Code 31-155 [facility] ALT [Catalytic activity/Vol] 51.0 U/L Invalid Interpretation Code 0-50 [facility] Anion gap [Moles/Vol] 14 mmol/L Invalid Interpretation Code 10-20 [facility] AST [Catalytic activity/Vol] 41.0 U/L Invalid Interpretation Code 0-40 [facility] Bilirubin [Mass/Vol] 0.30 mg/dL Invalid Interpretation Code 0.0-1.0 [facility] Bilirubin Ql (U) Negative Invalid Interpretation Code Negative [facility] Calcium [Mass/Vol] 10.40 mg/dL Invalid Interpretation Code 8.5-10.8 [facility] Chloride [Moles/Vol] 102.0 mmol/L Invalid Interpretation Code 100-112 [facility] Cholesterol [Mass/Vol] 236.0 mg/dL Invalid Interpretation Code 0-200 [facility] Cholesterol in HDL [Mass/Vol] 53.0 mg/dL Invalid Interpretation Code 36-100 [facility] Cholesterol in LDL [Mass/Vol] 146.0 mg/dL Invalid Interpretation Code 0-130 [facility] Cholesterol in VLDL [Mass/Vol] 37.0 mg/dL Invalid Interpretation Code 0-39 [facility] Cholesterol.total/C holesterol in HDL [Mass ratio] 4 {ratio} Invalid Interpretation Code [facility] CO2 [Moles/Vol] 25.0 mmol/L Invalid Interpretation Code 23-30 [facility] Creatinine (U) [Mass/Vol] 49.20 mg/dL Invalid Interpretation Code Not Estab. mg/dL [facility] Creatinine [Mass/Vol] 1.10 mg/dL Invalid Interpretation Code 0.5-1.5 [facility] Glucose [Mass/Vol] 159.0 mg/dL Invalid Interpretation Code 80-117 [facility] Ketones Ql (U) Negative Invalid Interpretation Code Negative [facility] pH (U) 6 [pH] Invalid Interpretation Code 5.0-9.0 [facility] Potassium [Moles/Vol] 4.40 mmol/L Invalid Interpretation Code 3.5-5.3 [facility] Protein [Mass/Vol] 8.20 g/dL Invalid Interpretation Code 6.3-7.9 [facility] Sodium [Moles/Vol] 137.0 mmol/L Invalid Interpretation Code 135-148 [facility] Specific gravity (U) [Rel density] 1.010 Invalid Interpretation Code 1.003-1.030 [facility] Triglyceride [Mass/Vol] 184.0 mg/dL Invalid Interpretation Code 30-150 [facility] Urea nitrogen [Mass/Vol] 16.0 mg/dL Invalid Interpretation Code 7-25 [facility] Urea nitrogen/Creatinine [Mass ratio] 15 mg/mg Invalid Interpretation Code 6-20 [facility] Urobilinogen (U) [Mass/Vol] normal Invalid Interpretation Code normal [facility] Laboratory - Hematology and Cell countson 11-14-2023 Erythrocyte distribution width (RBC) [Ratio] 12.60 % Invalid Interpretation Code 11.5-15.5 [facility] HbA1c (Bld) [Mass fraction] 6.80 % Invalid Interpretation Code 4.3-6.3 [facility] Hematocrit (Bld) [Volume fraction] 46.80 % Invalid Interpretation Code 37.8-51.0 [facility] Hemoglobin (Bld) [Mass/Vol] 15.70 g/dL Invalid Interpretation Code 12.6-17.0 [facility] Hemoglobin Ql (U) Negative Invalid Interpretation Code Negative [facility] MCH (RBC) [Entitic mass] 32.80 pg Invalid Interpretation Code 25.7-33.8 [facility] MCHC (RBC) [Mass/Vol] 33.50 g/dL Invalid Interpretation Code 32.0-36.0 [facility] MCV (RBC) [Entitic vol] 97.70 fL Invalid Interpretation Code 81.0-100.2 [facility] Platelet mean volume (Bld) [Entitic vol] 9.70 fL Invalid Interpretation Code 8.3-11.5 [facility] Platelets (Bld) [#/Vol] 240.0 10*3/uL Invalid Interpretation Code 150-400 [facility] RBC (Bld) [#/Vol] 4.790 10*6/uL Invalid Interpretation Code 4.34-5.61 [facility] WBC (Bld) [#/Vol] 6.90 10*3/uL Invalid Interpretation Code 3.9-10.3 [facility] Laboratory - Specimen inform ationon 11-14-2023 Clarity (U) Clear Invalid Interpretation Code Clear [facility] Color (U) yellow Invalid Interpretation Code yellow [facility] Laboratory - Urinalysison Glucose Test strip (U) [Mass/Vol] 4+ Invalid Interpretation Code Negative [facility] Leukocyte esterase Test strip Ql (U) Trace Invalid Interpretation Code Negative [facility] Nitrite Ql (U) Negative Invalid Interpretation Code Negative [facility] Protein Ql (U) 1+ Invalid Interpretation Code Negative [facility] No Panel Informationon 11-13 148.0 mg/dL Invalid Interpretation Code [facility] 77 Invalid Interpretation Code [facility] No Panel Informationon 08-01 Tobacco smoking status Current Tobacco User Invalid Interpretation Code [facility] Diabetic Retinal Eye Exam Invalid Interpretation Code [facility] Physician Orderon 06-16-2023 Physician Order [id number] [id number] F Normal [facility] Laboratory - Chemistry and C hemistry - challengeon 01-25-2023 Albumin (U) [Mass/Vol] < 12.0 Invalid Interpretation Code < 17.0 ug/mL [facility] Albumin [Mass/Vol] 4.50 g/dL Invalid Interpretation Code 3.7-5.0 [facility] Albumin/Globulin [Mass ratio] 1.4 {ratio} Invalid Interpretation Code 1.0-2.4 [facility] ALP [Catalytic activity/Vol] 93.0 U/L Invalid Interpretation Code 31-155 [facility] ALT [Catalytic activity/Vol] 62.0 U/L Invalid Interpretation Code 0-50 [facility] Anion gap [Moles/Vol] 16 mmol/L Invalid Interpretation Code 10-20 [facility] AST [Catalytic activity/Vol] 46.0 U/L Invalid Interpretation Code 0-40 [facility] Bilirubin [Mass/Vol] 0.40 mg/dL Invalid Interpretation Code 0.0-1.0 [facility] Bilirubin Ql (U) Negative Invalid Interpretation Code Negative [facility] Calcium [Mass/Vol] 10.20 mg/dL Invalid Interpretation Code 8.5-10.8 [facility] Chloride [Moles/Vol] 99.0 mmol/L Invalid Interpretation Code 100-112 [facility] Cholesterol [Mass/Vol] 212.0 mg/dL Invalid Interpretation Code 0-200 [facility] Cholesterol in HDL [Mass/Vol] 49.0 mg/dL Invalid Interpretation Code 36-100 [facility] Cholesterol in LDL [Mass/Vol] 135.0 mg/dL Invalid Interpretation Code 0-130 [facility] Cholesterol in VLDL [Mass/Vol] 28.0 mg/dL Invalid Interpretation Code 0-39 [facility] Cholesterol.total/C holesterol in HDL [Mass ratio] 4 {ratio} Invalid Interpretation Code [facility] CO2 [Moles/Vol] 26.0 mmol/L Invalid Interpretation Code 23-30 [facility] Creatinine (U) [Mass/Vol] 75.30 mg/dL Invalid Interpretation Code Not Estab. mg/dL [facility] Creatinine [Mass/Vol] 1.10 mg/dL Invalid Interpretation Code 0.5-1.5 [facility] Glucose [Mass/Vol] 111.0 mg/dL Invalid Interpretation Code 80-117 [facility] Ketones Ql (U) Negative Invalid Interpretation Code Negative [facility] pH (U) 6 [pH] Invalid Interpretation Code 5.0-9.0 [facility] Potassium [Moles/Vol] 4.70 mmol/L Invalid Interpretation Code 3.5-5.3 [facility] Prostate specific Ag [Mass/Vol] 0.94 ng/mL Invalid Interpretation Code 0.00-4.00 [facility] Protein [Mass/Vol] 7.80 g/dL Invalid Interpretation Code 6.3-7.9 [facility] Sodium [Moles/Vol] 136.0 mmol/L Invalid Interpretation Code 135-148 [facility] Specific gravity (U) [Rel density] 1.015 Invalid Interpretation Code 1.003-1.030 [facility] Triglyceride [Mass/Vol] 141.0 mg/dL Invalid Interpretation Code 30-150 [facility] Urea nitrogen [Mass/Vol] 20.0 mg/dL Invalid Interpretation Code 7-25 [facility] Urea nitrogen/Creatinine [Mass ratio] 18 mg/mg Invalid Interpretation Code 6-20 [facility] Urobilinogen (U) [Mass/Vol] normal Invalid Interpretation Code normal [facility] Laboratory - Hematology and Cell countson 01-25-2023 Erythrocyte distribution width (RBC) [Ratio] 12.10 % Invalid Interpretation Code 11.5-15.5 [facility] HbA1c (Bld) [Mass fraction] 6.60 % Invalid Interpretation Code 4.3-6.3 [facility] Hematocrit (Bld) [Volume fraction] 43.70 % Invalid Interpretation Code 37.8-51.0 [facility] Hemoglobin (Bld) [Mass/Vol] 14.90 g/dL Invalid Interpretation Code 12.6-17.0 [facility] Hemoglobin Ql (U) Negative Invalid Interpretation Code Negative [facility] MCH (RBC) [Entitic mass] 32.50 pg Invalid Interpretation Code 25.7-33.8 [facility] MCHC (RBC) [Mass/Vol] 34.10 g/dL Invalid Interpretation Code 32.0-36.0 [facility] MCV (RBC) [Entitic vol] 95.40 fL Invalid Interpretation Code 81.0-100.2 [facility] Platelet mean volume (Bld) [Entitic vol] 9.20 fL Invalid Interpretation Code 8.3-11.5 [facility] Platelets (Bld) [#/Vol] 225.0 10*3/uL Invalid Interpretation Code 150-400 [facility] RBC (Bld) [#/Vol] 4.580 10*6/uL Invalid Interpretation Code 4.34-5.61 [facility] WBC (Bld) [#/Vol] 8.0 10*3/uL Invalid Interpretation Code 3.9-10.3 [facility] Laboratory - Specimen inform ationon 01-25-2023 Clarity (U) Clear Invalid Interpretation Code Clear [facility] Color (U) yellow Invalid Interpretation Code yellow [facility] Laboratory - Urinalysison Glucose Test strip (U) [Mass/Vol] 4+ Invalid Interpretation Code Negative [facility] Leukocyte esterase Test strip Ql (U) Negative Invalid Interpretation Code Negative [facility] Nitrite Ql (U) Negative Invalid Interpretation Code Negative [facility] Protein Ql (U) Negative Invalid Interpretation Code Negative [facility] No Panel Informationon 01-25 78 Invalid Interpretation Code [facility] 143.0 mg/dL Invalid Interpretation Code [facility] No Panel Informationon 01-24 Tobacco smoking status Current Tobacco User Invalid Interpretation Code [facility] Laboratory - Chemistry and C hemistry - challengeon 07-27-2022 25-hydroxyvitamin D3 [Mass/Vol] 26.8 ng/mL Invalid Interpretation Code 30.0-100.0 [facility] Albumin (U) [Mass/Vol] < 12.0 Invalid Interpretation Code < 17.0 ug/mL [facility] Albumin [Mass/Vol] 4.50 g/dL Invalid Interpretation Code 3.7-5.0 [facility] Albumin/Globulin [Mass ratio] 1.3 {ratio} Invalid Interpretation Code 1.0-2.4 [facility] ALP [Catalytic activity/Vol] 74.0 U/L Invalid Interpretation Code 31-155 [facility] ALT [Catalytic activity/Vol] 24.0 U/L Invalid Interpretation Code 0-50 [facility] Anion gap [Moles/Vol] 16 mmol/L Invalid Interpretation Code 10-20 [facility] AST [Catalytic activity/Vol] 14.0 U/L Invalid Interpretation Code 0-40 [facility] Bilirubin [Mass/Vol] 0.30 mg/dL Invalid Interpretation Code 0.0-1.0 [facility] Bilirubin Ql (U) Negative Invalid Interpretation Code Negative [facility] Calcium [Mass/Vol] 10.20 mg/dL Invalid Interpretation Code 8.5-10.8 [facility] Chloride [Moles/Vol] 96.0 mmol/L Invalid Interpretation Code 100-112 [facility] Cholesterol [Mass/Vol] 218.0 mg/dL Invalid Interpretation Code 0-200 [facility] Cholesterol in HDL [Mass/Vol] 41.0 mg/dL Invalid Interpretation Code 36-100 [facility] Cholesterol in LDL [Mass/Vol] 139.0 mg/dL Invalid Interpretation Code 0-130 [facility] Cholesterol in VLDL [Mass/Vol] 38.0 mg/dL Invalid Interpretation Code 0-39 [facility] Cholesterol.total/C holesterol in HDL [Mass ratio] 5 {ratio} Invalid Interpretation Code [facility] CO2 [Moles/Vol] 26.0 mmol/L Invalid Interpretation Code 23-30 [facility] Creatinine (U) [Mass/Vol] 41.10 mg/dL Invalid Interpretation Code Not Estab. mg/dL [facility] Creatinine [Mass/Vol] 1.0 mg/dL Invalid Interpretation Code 0.5-1.5 [facility] GFR/1.73 sq M.predicted among non-blacks MDRD (S/P/Bld) [Vol rate/Area] 77 mL/min/{1.73_m2} Invalid Interpretation Code [facility] Glucose [Mass/Vol] 134.0 mg/dL Invalid Interpretation Code 80-117 [facility] Ketones Ql (U) Negative Invalid Interpretation Code Negative [facility] Parathyrin.intact [Mass/Vol] 24 pg/mL Invalid Interpretation Code 12-65 [facility] pH (U) 6.5 [pH] Invalid Interpretation Code 5.0-9.0 [facility] Phosphate [Mass/Vol] 3.60 mg/dL Invalid Interpretation Code 2.5-4.5 [facility] Potassium [Moles/Vol] 4.60 mmol/L Invalid Interpretation Code 3.5-5.3 [facility] Protein [Mass/Vol] 7.90 g/dL Invalid Interpretation Code 6.3-7.9 [facility] Sodium [Moles/Vol] 133.0 mmol/L Invalid Interpretation Code 135-148 [facility] Specific gravity (U) [Rel density] 1.005 Invalid Interpretation Code 1.003-1.030 [facility] Triglyceride [Mass/Vol] 190.0 mg/dL Invalid Interpretation Code 30-150 [facility] Urea nitrogen [Mass/Vol] 23.0 mg/dL Invalid Interpretation Code 7-25 [facility] Urea nitrogen/Creatinine [Mass ratio] 23 mg/mg Invalid Interpretation Code 6-20 [facility] Urobilinogen (U) [Mass/Vol] normal Invalid Interpretation Code normal [facility] Laboratory - Hematology and Cell countson 07-27-2022 HbA1c (Bld) [Mass fraction] 6.70 % Invalid Interpretation Code 4.3-6.3 [facility] Hemoglobin Ql (U) Negative Invalid Interpretation Code Negative [facility] Laboratory - Specimen inform ationon 07-27-2022 Clarity (U) clear Invalid Interpretation Code Clear [facility] Color (U) yellow Invalid Interpretation Code yellow [facility] Laboratory - Urinalysison Glucose Test strip (U) [Mass/Vol] 4+ Invalid Interpretation Code Negative [facility] Leukocyte esterase Test strip Ql (U) Negative Invalid Interpretation Code Negative [facility] Nitrite Ql (U) Negative Invalid Interpretation Code Negative [facility] Protein Ql (U) Negative Invalid Interpretation Code Negative [facility] No Panel Informationon 07-27 Body mass index (BMI) [Percentile] Per age and sex 0.1 {percentile} Invalid Interpretation Code [facility] [id number] Per age and sex 0.1 {percentile} Invalid Interpretation Code [facility] 146.0 mg/dL Invalid Interpretation Code [facility] Patient did NOT brin g meter Invalid Interpretation Code 70-117 [facility] Laboratory - Chemistry and C hemistry - challengeon 02-17-2022 Albumin (U) [Mass/Vol] 17.1 Invalid Interpretation Code <17.0 [facility] Albumin [Mass/Vol] 4.80 g/dL Invalid Interpretation Code 3.7-5.0 [facility] Albumin/Creatinine DL <= 20 mg/L (U) [Mass ratio] 26.8 mg/g Invalid Interpretation Code 0.0-30.0 [facility] Albumin/Globulin [Mass ratio] 1.7 {ratio} Invalid Interpretation Code 1.0-2.4 [facility] ALP [Catalytic activity/Vol] 65.0 U/L Invalid Interpretation Code 31-155 [facility] ALT [Catalytic activity/Vol] 51.0 U/L Invalid Interpretation Code 0-50 [facility] Anion gap [Moles/Vol] 13 mmol/L Invalid Interpretation Code 10-20 [facility] AST [Catalytic activity/Vol] 30.0 U/L Invalid Interpretation Code 0-40 [facility] Bilirubin [Mass/Vol] 0.50 mg/dL Invalid Interpretation Code 0.0-1.0 [facility] Calcium [Mass/Vol] 10.80 mg/dL Invalid Interpretation Code 8.5-10.8 [facility] Chloride [Moles/Vol] 99.0 mmol/L Invalid Interpretation Code 100-112 [facility] Cholesterol [Mass/Vol] 214.0 mg/dL Invalid Interpretation Code 0-200 [facility] Cholesterol in HDL [Mass/Vol] 57.0 mg/dL Invalid Interpretation Code 36-100 [facility] Cholesterol in LDL [Mass/Vol] 133.0 mg/dL Invalid Interpretation Code 0-130 [facility] Cholesterol in VLDL [Mass/Vol] 24.0 mg/dL Invalid Interpretation Code 0-39 [facility] Cholesterol.total/C holesterol in HDL [Mass ratio] 4 {ratio} Invalid Interpretation Code [facility] CO2 [Moles/Vol] 30.0 mmol/L Invalid Interpretation Code 23-30 [facility] Creatinine (U) [Mass/Vol] 63.80 mg/dL Invalid Interpretation Code Not Estab. mg/dL [facility] Creatinine [Mass/Vol] 1.10 mg/dL Invalid Interpretation Code 0.5-1.5 [facility] GFR/1.73 sq M.predicted among non-blacks MDRD (S/P/Bld) [Vol rate/Area] 69 mL/min/{1.73_m2} Invalid Interpretation Code [facility] Glucose [Mass/Vol] 128.0 mg/dL Invalid Interpretation Code 80-117 [facility] Potassium [Moles/Vol] 4.60 mmol/L Invalid Interpretation Code 3.5-5.3 [facility] Prostate specific Ag [Mass/Vol] 0.85 ng/mL Invalid Interpretation Code 0.00-4.00 [facility] Protein [Mass/Vol] 7.60 g/dL Invalid Interpretation Code 6.3-7.9 [facility] Sodium [Moles/Vol] 137.0 mmol/L Invalid Interpretation Code 135-148 [facility] Triglyceride [Mass/Vol] 120.0 mg/dL Invalid Interpretation Code 30-150 [facility] Urea nitrogen [Mass/Vol] 16.0 mg/dL Invalid Interpretation Code 7-25 [facility] Urea nitrogen/Creatinine [Mass ratio] 15 mg/mg Invalid Interpretation Code 6-20 [facility] Laboratory - Hematology and Cell countson 02-17-2022 HbA1c (Bld) [Mass fraction] 6.50 % Invalid Interpretation Code 4.3-6.3 [facility] No Panel Informationon 02-17 140.0 mg/dL Invalid Interpretation Code [facility] Laboratory - Chemistry and C hemistry - challengeon 01-15-2022 Albumin (U) [Mass/Vol] < 12.0 Invalid Interpretation Code < 17.0 ug/mL [facility] Albumin [Mass/Vol] 4.70 g/dL Invalid Interpretation Code 3.7-5.0 [facility] Albumin/Globulin [Mass ratio] 1.6 {ratio} Invalid Interpretation Code 1.0-2.4 [facility] ALP [Catalytic activity/Vol] 66.0 U/L Invalid Interpretation Code 31-155 [facility] ALT [Catalytic activity/Vol] 38.0 U/L Invalid Interpretation Code 0-50 [facility] Anion gap [Moles/Vol] 15 mmol/L Invalid Interpretation Code 10-20 [facility] AST [Catalytic activity/Vol] 23.0 U/L Invalid Interpretation Code 0-40 [facility] Bilirubin [Mass/Vol] 0.40 mg/dL Invalid Interpretation Code 0.0-1.0 [facility] Bilirubin Ql (U) Negative Invalid Interpretation Code Negative [facility] Calcium [Mass/Vol] 10.40 mg/dL Invalid Interpretation Code 8.5-10.8 [facility] Chloride [Moles/Vol] 101.0 mmol/L Invalid Interpretation Code 100-112 [facility] CO2 [Moles/Vol] 28.0 mmol/L Invalid Interpretation Code 23-30 [facility] Creatinine (U) [Mass/Vol] 60.60 mg/dL Invalid Interpretation Code Not Estab. mg/dL [facility] Creatinine [Mass/Vol] 1.10 mg/dL Invalid Interpretation Code 0.5-1.5 [facility] Gamma glutamyl transferase [Catalytic activity/Vol] 62 U/L Invalid Interpretation Code 7-51 [facility] GFR/1.73 sq M.predicted among non-blacks MDRD (S/P/Bld) [Vol rate/Area] 69 mL/min/{1.73_m2} Invalid Interpretation Code [facility] Glucose [Mass/Vol] 116.0 mg/dL Invalid Interpretation Code 80-117 [facility] Ketones Ql (U) 1+ Invalid Interpretation Code Negative [facility] pH (U) 6 [pH] Invalid Interpretation Code 5.0-9.0 [facility] Potassium [Moles/Vol] 4.80 mmol/L Invalid Interpretation Code 3.5-5.3 [facility] Protein [Mass/Vol] 7.70 g/dL Invalid Interpretation Code 6.3-7.9 [facility] Sodium [Moles/Vol] 139.0 mmol/L Invalid Interpretation Code 135-148 [facility] Specific gravity (U) [Rel density] 1.010 Invalid Interpretation Code 1.003-1.030 [facility] Urea nitrogen [Mass/Vol] 17.0 mg/dL Invalid Interpretation Code 7-25 [facility] Urea nitrogen/Creatinine [Mass ratio] 15 mg/mg Invalid Interpretation Code 6-20 [facility] Urobilinogen (U) [Mass/Vol] normal Invalid Interpretation Code normal [facility] Laboratory - Hematology and Cell countson 01-15-2022 Erythrocyte distribution width (RBC) [Ratio] 12.50 % Invalid Interpretation Code 11.5-15.5 [facility] HbA1c (Bld) [Mass fraction] 6.60 % Invalid Interpretation Code 4.3-6.3 [facility] Hematocrit (Bld) [Volume fraction] 49.80 % Invalid Interpretation Code 37.8-51.0 [facility] Hemoglobin (Bld) [Mass/Vol] 16.40 g/dL Invalid Interpretation Code 12.6-17.0 [facility] Hemoglobin Ql (U) Negative Invalid Interpretation Code Negative [facility] MCH (RBC) [Entitic mass] 31.90 pg Invalid Interpretation Code 25.7-33.8 [facility] MCHC (RBC) [Mass/Vol] 32.90 g/dL Invalid Interpretation Code 32.0-36.0 [facility] MCV (RBC) [Entitic vol] 96.90 fL Invalid Interpretation Code 81.0-100.2 [facility] Platelet mean volume (Bld) [Entitic vol] 9.30 fL Invalid Interpretation Code 8.3-11.5 [facility] Platelets (Bld) [#/Vol] 216.0 10*3/uL Invalid Interpretation Code 150-400 [facility] RBC (Bld) [#/Vol] 5.140 10*6/uL Invalid Interpretation Code 4.34-5.61 [facility] WBC (Bld) [#/Vol] 7.30 10*3/uL Invalid Interpretation Code 3.9-10.3 [facility] Laboratory - Specimen inform ationon 01-15-2022 Clarity (U) clear Invalid Interpretation Code Clear [facility] Color (U) yellow Invalid Interpretation Code yellow [facility] Laboratory - Urinalysison Glucose Test strip (U) [Mass/Vol] 4+ Invalid Interpretation Code Negative [facility] Leukocyte esterase Test strip Ql (U) Negative Invalid Interpretation Code Negative [facility] Nitrite Ql (U) Negative Invalid Interpretation Code Negative [facility] Protein Ql (U) Negative Invalid Interpretation Code Negative [facility] No Panel Informationon 01-15 143.0 mg/dL Invalid Interpretation Code [facility] Glucose Meter Check NOT Performed Invalid Interpretation Code 70-117 [facility] Laboratory - Chemistry and C hemistry - challengeon 08-18-2021 Albumin [Mass/Vol] 4.70 g/dL Invalid Interpretation Code 3.7-5.0 [facility] Albumin/Globulin [Mass ratio] 1.7 {ratio} Invalid Interpretation Code 1.0-2.4 [facility] ALP [Catalytic activity/Vol] 62.0 U/L Invalid Interpretation Code 31-155 [facility] ALT [Catalytic activity/Vol] 57.0 U/L Invalid Interpretation Code 0-50 [facility] Anion gap [Moles/Vol] 16 mmol/L Invalid Interpretation Code 10-20 [facility] AST [Catalytic activity/Vol] 33.0 U/L Invalid Interpretation Code 0-40 [facility] Bilirubin [Mass/Vol] 0.40 mg/dL Invalid Interpretation Code 0.0-1.0 [facility] Calcium [Mass/Vol] 10.20 mg/dL Invalid Interpretation Code 8.5-10.8 [facility] Chloride [Moles/Vol] 99.0 mmol/L Invalid Interpretation Code 100-112 [facility] Cholesterol [Mass/Vol] 217.0 mg/dL Invalid Interpretation Code 0-200 [facility] Cholesterol in HDL [Mass/Vol] 49.0 mg/dL Invalid Interpretation Code 36-100 [facility] Cholesterol in LDL [Mass/Vol] 131.0 mg/dL Invalid Interpretation Code 0-130 [facility] Cholesterol in VLDL [Mass/Vol] 37.0 mg/dL Invalid Interpretation Code 0-39 [facility] Cholesterol.total/C holesterol in HDL [Mass ratio] 4 {ratio} Invalid Interpretation Code [facility] CO2 [Moles/Vol] 28.0 mmol/L Invalid Interpretation Code 23-30 [facility] Creatinine [Mass/Vol] 1.10 mg/dL Invalid Interpretation Code 0.5-1.5 [facility] Gamma glutamyl transferase [Catalytic activity/Vol] 98 U/L Invalid Interpretation Code 7-51 [facility] GFR/1.73 sq M.predicted among non-blacks MDRD (S/P/Bld) [Vol rate/Area] 69 mL/min/{1.73_m2} Invalid Interpretation Code [facility] Glucose [Mass/Vol] 127.0 mg/dL Invalid Interpretation Code 80-117 [facility] Potassium [Moles/Vol] 4.40 mmol/L Invalid Interpretation Code 3.5-5.3 [facility] Protein [Mass/Vol] 7.50 g/dL Invalid Interpretation Code 6.3-7.9 [facility] Sodium [Moles/Vol] 139.0 mmol/L Invalid Interpretation Code 135-148 [facility] Triglyceride [Mass/Vol] 186.0 mg/dL Invalid Interpretation Code 30-150 [facility] Urea nitrogen [Mass/Vol] 19.0 mg/dL Invalid Interpretation Code 7-25 [facility] Urea nitrogen/Creatinine [Mass ratio] 17 mg/mg Invalid Interpretation Code 6-20 [facility] Laboratory - Hematology and Cell countson 08-18-2021 Erythrocyte distribution width (RBC) [Ratio] 12.60 % Invalid Interpretation Code 11.5-15.5 [facility] HbA1c (Bld) [Mass fraction] 6.20 % Invalid Interpretation Code 4.3-6.3 [facility] Hematocrit (Bld) [Volume fraction] 48.40 % Invalid Interpretation Code 37.8-51.0 [facility] Hemoglobin (Bld) [Mass/Vol] 16.10 g/dL Invalid Interpretation Code 12.6-17.0 [facility] MCH (RBC) [Entitic mass] 32.40 pg Invalid Interpretation Code 25.7-33.8 [facility] MCHC (RBC) [Mass/Vol] 33.30 g/dL Invalid Interpretation Code 32.0-36.0 [facility] MCV (RBC) [Entitic vol] 97.40 fL Invalid Interpretation Code 81.0-100.2 [facility] Platelet mean volume (Bld) [Entitic vol] 10.10 fL Invalid Interpretation Code 8.3-11.5 [facility] Platelets (Bld) [#/Vol] 214.0 10*3/uL Invalid Interpretation Code 150-400 [facility] RBC (Bld) [#/Vol] 4.970 10*6/uL Invalid Interpretation Code 4.34-5.61 [facility] WBC (Bld) [#/Vol] 5.90 10*3/uL Invalid Interpretation Code 3.9-10.3 [facility] No Panel Informationon 08-18 131.0 mg/dL Invalid Interpretation Code [facility] No Specimen, Unable to Void Invalid Interpretation Code [facility] No Panel Informationon 04-09 Diabetic Retinal Eye Exam Invalid Interpretation Code [facility] Laboratory - Chemistry and C hemistry - challengeon 03-19-2021 Albumin [Mass/Vol] 4.60 g/dL Invalid Interpretation Code 3.7-4.5 [facility] Albumin/Globulin [Mass ratio] 1.4 {ratio} Invalid Interpretation Code 1.0-2.4 [facility] ALP [Catalytic activity/Vol] 75.0 U/L Invalid Interpretation Code 31-155 [facility] ALT [Catalytic activity/Vol] 41.0 U/L Invalid Interpretation Code 0-50 [facility] Anion gap [Moles/Vol] 14 mmol/L Invalid Interpretation Code 10-20 [facility] AST [Catalytic activity/Vol] 26.0 U/L Invalid Interpretation Code 0-40 [facility] Bilirubin [Mass/Vol] 0.40 mg/dL Invalid Interpretation Code 0.0-1.0 [facility] Bilirubin Ql (U) Negative Invalid Interpretation Code Negative [facility] Calcium [Mass/Vol] 10.10 mg/dL Invalid Interpretation Code 8.5-10.8 [facility] Chloride [Moles/Vol] 99.0 mmol/L Invalid Interpretation Code 100-112 [facility] CO2 [Moles/Vol] 28.0 mmol/L Invalid Interpretation Code 23-30 [facility] Creatinine [Mass/Vol] 0.90 mg/dL Invalid Interpretation Code 0.5-1.5 [facility] GFR/1.73 sq M.predicted among non-blacks MDRD (S/P/Bld) [Vol rate/Area] 87 mL/min/{1.73_m2} Invalid Interpretation Code [facility] Glucose [Mass/Vol] 135.0 mg/dL Invalid Interpretation Code 80-117 [facility] Ketones Ql (U) Negative Invalid Interpretation Code Negative [facility] Parathyrin.intact [Mass/Vol] 22 pg/mL Invalid Interpretation Code 12-65 [facility] pH (U) 6 [pH] Invalid Interpretation Code 5.0-9.0 [facility] Phosphate [Mass/Vol] 3.50 mg/dL Invalid Interpretation Code 2.5-4.5 [facility] Potassium [Moles/Vol] 4.50 mmol/L Invalid Interpretation Code 3.5-5.3 [facility] Protein [Mass/Vol] 7.80 g/dL Invalid Interpretation Code 6.3-7.9 [facility] Sodium [Moles/Vol] 136.0 mmol/L Invalid Interpretation Code 135-148 [facility] Specific gravity (U) [Rel density] 1.015 Invalid Interpretation Code 1.003-1.030 [facility] Urea nitrogen [Mass/Vol] 15.0 mg/dL Invalid Interpretation Code 7-25 [facility] Urea nitrogen/Creatinine [Mass ratio] 17 mg/mg Invalid Interpretation Code 6-20 [facility] Urobilinogen (U) [Mass/Vol] normal Invalid Interpretation Code normal [facility] Laboratory - Hematology and Cell countson 03-19-2021 Erythrocyte distribution width (RBC) [Ratio] 12.80 % Invalid Interpretation Code 11.5-15.5 [facility] HbA1c (Bld) [Mass fraction] 6.40 % Invalid Interpretation Code 4.3-6.3 [facility] Hematocrit (Bld) [Volume fraction] 49.0 % Invalid Interpretation Code 37.8-51.0 [facility] Hemoglobin (Bld) [Mass/Vol] 16.60 g/dL Invalid Interpretation Code 12.6-17.0 [facility] Hemoglobin Ql (U) Negative Invalid Interpretation Code Negative [facility] MCH (RBC) [Entitic mass] 32.10 pg Invalid Interpretation Code 25.7-33.8 [facility] MCHC (RBC) [Mass/Vol] 33.90 g/dL Invalid Interpretation Code 32.0-36.0 [facility] MCV (RBC) [Entitic vol] 94.80 fL Invalid Interpretation Code 81.0-100.2 [facility] Platelet mean volume (Bld) [Entitic vol] 9.60 fL Invalid Interpretation Code 8.3-11.5 [facility] Platelets (Bld) [#/Vol] 257.0 10*3/uL Invalid Interpretation Code 150-400 [facility] RBC (Bld) [#/Vol] 5.170 10*6/uL Invalid Interpretation Code 4.34-5.61 [facility] WBC (Bld) [#/Vol] 6.90 10*3/uL Invalid Interpretation Code 3.9-10.3 [facility] Laboratory - Specimen inform ationon 03-19-2021 Clarity (U) clear Invalid Interpretation Code Clear [facility] Color (U) yellow Invalid Interpretation Code yellow [facility] Laboratory - Urinalysison Glucose Test strip (U) [Mass/Vol] 4+ Invalid Interpretation Code Negative [facility] Leukocyte esterase Test strip Ql (U) Negative Invalid Interpretation Code Negative [facility] Nitrite Ql (U) Negative Invalid Interpretation Code Negative [facility] Protein Ql (U) Negative Invalid Interpretation Code Negative [facility] No Panel Informationon 03-19 137.0 mg/dL Invalid Interpretation Code [facility] patient's meter brok e and doesn't have new one yet Invalid Interpretation Code 70-117 [facility] Laboratory - Chemistry and C hemistry - challengeon 12-23-2020 Albumin (U) [Mass/Vol] < 12.0 Invalid Interpretation Code < 17.0 ug/mL [facility] Albumin [Mass/Vol] 4.40 g/dL Invalid Interpretation Code 3.7-4.5 [facility] Albumin/Globulin [Mass ratio] 1.5 {ratio} Invalid Interpretation Code 1.0-2.4 [facility] ALP [Catalytic activity/Vol] 69.0 U/L Invalid Interpretation Code 31-155 [facility] ALT [Catalytic activity/Vol] 30.0 U/L Invalid Interpretation Code 0-50 [facility] Anion gap [Moles/Vol] 13 mmol/L Invalid Interpretation Code 10-20 [facility] AST [Catalytic activity/Vol] 20.0 U/L Invalid Interpretation Code 0-40 [facility] Bilirubin [Mass/Vol] 0.40 mg/dL Invalid Interpretation Code 0.0-1.0 [facility] Bilirubin Ql (U) Negative Invalid Interpretation Code Negative [facility] Calcium [Mass/Vol] 9.80 mg/dL Invalid Interpretation Code 8.5-10.8 [facility] Chloride [Moles/Vol] 98.0 mmol/L Invalid Interpretation Code 100-112 [facility] Cholesterol [Mass/Vol] 207.0 mg/dL Invalid Interpretation Code 0-200 [facility] Cholesterol in HDL [Mass/Vol] 40.0 mg/dL Invalid Interpretation Code 36-100 [facility] Cholesterol in LDL [Mass/Vol] 100.0 mg/dL Invalid Interpretation Code 0-130 [facility] Cholesterol in VLDL [Mass/Vol] 67.0 mg/dL Invalid Interpretation Code 0-39 [facility] Cholesterol.total/C holesterol in HDL [Mass ratio] 5 {ratio} Invalid Interpretation Code [facility] CO2 [Moles/Vol] 29.0 mmol/L Invalid Interpretation Code 23-30 [facility] Creatinine (U) [Mass/Vol] 31.90 mg/dL Invalid Interpretation Code Not Estab. mg/dL [facility] Creatinine [Mass/Vol] 1.0 mg/dL Invalid Interpretation Code 0.5-1.5 [facility] GFR/1.73 sq M.predicted among non-blacks MDRD (S/P/Bld) [Vol rate/Area] 77 mL/min/{1.73_m2} Invalid Interpretation Code [facility] Glucose [Mass/Vol] 113.0 mg/dL Invalid Interpretation Code 80-117 [facility] Ketones Ql (U) Negative Invalid Interpretation Code Negative [facility] pH (U) 6 [pH] Invalid Interpretation Code 5.0-9.0 [facility] Potassium [Moles/Vol] 4.40 mmol/L Invalid Interpretation Code 3.5-5.3 [facility] Prostate specific Ag [Mass/Vol] 0.76 ng/mL Invalid Interpretation Code 0.00-4.00 [facility] Protein [Mass/Vol] 7.30 g/dL Invalid Interpretation Code 6.3-7.9 [facility] Sodium [Moles/Vol] 136.0 mmol/L Invalid Interpretation Code 135-148 [facility] Specific gravity (U) [Rel density] 1.005 Invalid Interpretation Code 1.003-1.030 [facility] Triglyceride [Mass/Vol] 334.0 mg/dL Invalid Interpretation Code 30-150 [facility] Urea nitrogen [Mass/Vol] 15.0 mg/dL Invalid Interpretation Code 7-25 [facility] Urea nitrogen/Creatinine [Mass ratio] 15 mg/mg Invalid Interpretation Code 6-20 [facility] Urobilinogen (U) [Mass/Vol] normal Invalid Interpretation Code normal [facility] Laboratory - Hematology and Cell countson 12-23-2020 Erythrocyte distribution width (RBC) [Ratio] 12.90 % Invalid Interpretation Code 11.5-15.5 [facility] HbA1c (Bld) [Mass fraction] 6.30 % Invalid Interpretation Code 4.3-6.3 [facility] Hematocrit (Bld) [Volume fraction] 48.0 % Invalid Interpretation Code 37.8-51.0 [facility] Hemoglobin (Bld) [Mass/Vol] 16.40 g/dL Invalid Interpretation Code 12.6-17.0 [facility] Hemoglobin Ql (U) Negative Invalid Interpretation Code Negative [facility] MCH (RBC) [Entitic mass] 32.20 pg Invalid Interpretation Code 25.7-33.8 [facility] MCHC (RBC) [Mass/Vol] 34.20 g/dL Invalid Interpretation Code 32.0-36.0 [facility] MCV (RBC) [Entitic vol] 94.10 fL Invalid Interpretation Code 81.0-100.2 [facility] Platelet mean volume (Bld) [Entitic vol] 9.30 fL Invalid Interpretation Code 8.3-11.5 [facility] Platelets (Bld) [#/Vol] 265.0 10*3/uL Invalid Interpretation Code 150-400 [facility] RBC (Bld) [#/Vol] 5.10 10*6/uL Invalid Interpretation Code 4.34-5.61 [facility] WBC (Bld) [#/Vol] 7.30 10*3/uL Invalid Interpretation Code 3.9-10.3 [facility] Laboratory - Specimen inform ationon 12-23-2020 Clarity (U) clear Invalid Interpretation Code Clear [facility] Collection time (Andrei) [Date/time] 10:56 am Invalid Interpretation Code [facility] Color (U) yellow Invalid Interpretation Code yellow [facility] Laboratory - Urinalysison Glucose Test strip (U) [Mass/Vol] 4+ Invalid Interpretation Code Negative [facility] Leukocyte esterase Test strip Ql (U) Negative Invalid Interpretation Code Negative [facility] Nitrite Ql (U) Negative Invalid Interpretation Code Negative [facility] Protein Ql (U) Negative Invalid Interpretation Code Negative [facility] No Panel Informationon 12-23 134.0 mg/dL Invalid Interpretation Code [facility] Laboratory - Chemistry and C hemistry - challengeon 09-09-2020 Albumin/Globulin [Mass ratio] 1.2 {ratio} Invalid Interpretation Code 1.0-2.4 [facility] Bilirubin Ql (U) Negative Invalid Interpretation Code Negative [facility] Ketones Ql (U) Negative Invalid Interpretation Code Negative [facility] Urobilinogen (U) [Mass/Vol] normal Invalid Interpretation Code normal [facility] Laboratory - Urinalysison Leukocyte esterase Test strip Ql (U) Negative Invalid Interpretation Code Negative [facility] Nitrite Ql (U) Negative Invalid Interpretation Code Negative [facility] Protein Ql (U) Negative Invalid Interpretation Code Negative [facility] Metabolic Panelon 09-09-2020 Albumin [Mass/Vol] 4.40 g/dL Invalid Interpretation Code 3.7-4.5 [facility] ALP [Catalytic activity/Vol] 81.0 U/L Invalid Interpretation Code 31-155 [facility] ALT [Catalytic activity/Vol] 57.0 U/L Invalid Interpretation Code 0-50 [facility] Anion gap [Moles/Vol] 13 mmol/L Invalid Interpretation Code 10-20 [facility] AST [Catalytic activity/Vol] 36.0 U/L Invalid Interpretation Code 0-40 [facility] Bilirubin [Mass/Vol] 0.60 mg/dL Invalid Interpretation Code 0.0-1.0 [facility] Calcium [Mass/Vol] 11.0 mg/dL Invalid Interpretation Code 8.5-10.8 [facility] Chloride [Moles/Vol] 97.0 mmol/L Invalid Interpretation Code 100-112 [facility] CO2 [Moles/Vol] 27.0 mmol/L Invalid Interpretation Code 23-30 [facility] Creatinine [Mass/Vol] 1.60 mg/dL Invalid Interpretation Code 0.5-1.5 [facility] GFR/1.73 sq M predicted among non-blacks MDRD (S/P/Bld) [Vol rate/Area] 45 mL/min/{1.73_m2} Invalid Interpretation Code [facility] Glucose [Mass/Vol] 148.0 mg/dL Invalid Interpretation Code 80-117 [facility] Glucose [Mass/Vol] Patient did not brin g strips for meter 70-117 [facility] HbA1c (Bld) [Mass fraction] 6.90 % Invalid Interpretation Code 4.3-6.3 [facility] Potassium [Moles/Vol] 4.90 mmol/L Invalid Interpretation Code 3.5-5.3 [facility] Protein [Mass/Vol] 8.20 g/dL Invalid Interpretation Code 6.3-7.9 [facility] Sodium [Moles/Vol] 132.0 mmol/L Invalid Interpretation Code 135-148 [facility] Urea nitrogen [Mass/Vol] 23.0 mg/dL Invalid Interpretation Code 7-25 [facility] Urea nitrogen/Creatinine [Mass ratio] 14 mg/mg Invalid Interpretation Code 6-20 [facility] No Panel Informationon 09-09 Patient did not brin g strips for meter Invalid Interpretation Code 70-117 [facility] Otheron 09-09-2020 Albumin/Globulin [Mass ratio] 1.2 (calc) 1.0-2.4 [facility] Bilirubin Ql (U) Negative Negative [facility] Glucose Test strip (U) [Mass/Vol] 4+ Invalid Interpretation Code Negative [facility] Hemoglobin Ql (U) Trace Invalid Interpretation Code Negative [facility] Nitrite Ql (U) Negative Negative [facility] pH (U) 5 [pH] Invalid Interpretation Code 5.0-9.0 [facility] Protein Ql (U) Negative Negative [facility] Urobilinogen Test strip (U) [Mass/Vol] normal normal [facility] 151.0 mg/dL Invalid Interpretation Code [facility] Urinalysison 09-09-2020 Clarity (U) Clear Invalid Interpretation Code Clear [facility] Color (U) yellow Invalid Interpretation Code yellow [facility] Ketones Ql (U) Negative Negative [facility] Leukocyte esterase Test strip Ql (U) Negative Negative [facility] Specific gravity (U) [Rel density] 1.015 Invalid Interpretation Code 1.003-1.030 [facility] Coding Summaryon 06-20-2020 Coding Summary CODING DATE: [facility] STATUS: Home PAYOR: Medicare APC DESCRIPTION 5791 [...] Bright Aguilera' Date Saved: 06/20/2020 12:49 pm [facility] Coding Summary CODING DATE: [facility] STATUS: Home PAYOR: Medicare APC DESCRIPTION 5791 [...] Saved: 06/20/2020 12:47 pm Normal [facility] .Auto Diff 06-17-2020 Auto Trinity % 7 % Normal 07-22 [facility] Comment on above: Performed By: #### 7 248535, 0840386, 99150590, [id number], [id number] #### [facility] (DEFAULT) [address] [place] [address] 01162 Baso Abs# 0.0 x10 Normal 0.0-0.2 [facility] Comment on above: Performed By: #### 7 385058, 1836848, 22239533, [id number], [id number] #### [facility] (DEFAULT) [address] [place] [address] 59950 Basophils/100 WBC (Bld) 0.5 % Normal 0.2-2.0 [facility] Comment on above: Performed By: #### 7 907102, 4224329, 55865505, [id number], [id number] #### [facility] (DEFAULT) [address] [place] [address] 76137 Eos Abs# 0.2 x10 Normal 0.0-0.4 [facility] Comment on above: Performed By: #### 7 105482, 5869925, 59014543, [id number], [id number] #### [facility] (DEFAULT) [address] [place] [address] 01771 Eosinophils/100 WBC (Bld) 2.3 % Normal 0.9-4.0 [facility] Comment on above: Performed By: #### 7 555703, 5422748, 90808413, [id number], [id number] #### [facility] (DEFAULT) [address] [place] [address] 12094 Lymphocytes (Bld) [#/Vol] 2.3 x10 Normal 1.3-2.9 [facility] Comment on above: Performed By: #### 7 908583, 1245365, 71209625, [id number], [id number] #### [facility] (DEFAULT) [address] [place] [address] Lymphocytes/100 WBC (Bld) 25 % Normal 14-48 [facility] Comment on above: Performed By: #### 7 491964, 2375727, 28604164, [id number], [id number] #### [facility] (DEFAULT) [address] [place] [address] Trinity Abs# 0.7 x10 Normal 0.0-0.8 [facility] Comment on above: Performed By: #### 7 977121, 5733249, 81562316, 4069623655, [id number] #### [facility] (DEFAULT) [address] [place] [address] Neut Abs# 6.0 x10 Normal 1.5-9.2 [facility] Comment on above: Performed By: #### 7 103655, 8075378, 80209864, [id number], [id number] #### [facility] (DEFAULT) [address] [place] [address] Neutrophils/100 WBC (Bld) 65 % Normal 44-88 [facility] Comment on above: Performed By: #### 7 222221, 8992727, 90942732, [id number], [id number] #### [facility] (DEFAULT) [address] [place] [address] .QC Respiratory Panel 2.1 (B ioFire)on 06-17-2020 Internal Control-Resp Panel 2.1(BioFire) Pass Normal [facility] Comment on above: Order Comment: Order ed by Chloe. [[id number]] Performed By: #### 6 [id number] #### [facility] (DEFAULT) [address] [place] [address] 34506 CBC w/ Auto Diffon 0 Erythrocyte distribution width (RBC) [Ratio] 12.9 % Normal 11.5-15.0 [facility] Comment on above: Performed By: #### 7 356374, 3355203, 05643116, [id number], [id number] #### [facility] (DEFAULT) [address] [place] [address] Hematocrit (Bld) [Volume fraction] 45.1 % Normal 34.8-51.9 [facility] Comment on above: Performed By: #### 7 155796, 2230017, 51479927, [id number], [id number] #### [facility] (DEFAULT) [address] [place] [address] Hemoglobin (Bld) [Mass/Vol] 15.6 g/dL Normal 11.8-17.7 [facility] Comment on above: Performed By: #### 7 958253, 7149392, 12565247, 8266452609, [id number] #### [facility] (DEFAULT) [address] [place] [address] Man Diff? Auto Normal [facility] Comment on above: Performed By: #### 7 263220, 8545945, 72928495, [id number], [id number] #### [facility] (DEFAULT) [address] [place] [address] MCH (RBC) [Entitic mass] 32 pg Normal 24-34 [facility] Comment on above: Performed By: #### 7 995049, 9897599, 13785744, 3662282394, [id number] #### [facility] (DEFAULT) [address] [place] [address] MCHC (RBC) [Mass/Vol] 35 g/dL Normal 26-37 [facility] Comment on above: Performed By: #### 7 167259, 2725658, 77245099, 6970434321, [id number] #### [facility] (DEFAULT) [address] [place] [address] MCV (RBC) [Entitic vol] 93 fL Normal 81-100 [facility] Comment on above: Performed By: #### 7 212028, 2097583, 56705170, 1766160086, [id number] #### [facility] (DEFAULT) [address] [place] [address] 52886 Platelet mean volume (Bld) [Entitic vol] 9.9 fL Normal 6.3-10.2 [facility] Comment on above: Performed By: #### 7 890749, 7781483, 29655424, 0647846724, [id number] #### [facility] (DEFAULT) [address] [place] [address] 56060 Platelets (Bld) [#/Vol] 277 x10 Normal 138-427 [facility] Comment on above: Performed By: #### 7 312979, 1486828, 49868719, 0028692640, [id number] #### [facility] (DEFAULT) [address] [place] [address] 64426 RBC (Bld) [#/Vol] 4.83 x10 Normal 3.70-5.30 [facility] Comment on above: Performed By: #### 7 855776, 7201998, 71873883, [id number], [id number] #### [facility] (DEFAULT) [address] [place] [address] 46843 WBC (Bld) [#/Vol] 9.3 x10 Normal 3.5-10.5 [facility] Comment on above: Performed By: #### 7 448569, 0170607, 36055795, 5670790600, [id number] #### [facility] (DEFAULT) [address] [place] [address] Standardon 06-17-2020 eGFR Non AA >60 [facility] Comment on above: Performed By: #### 7 159757, 7877341, 97152086, 1636811891, 7113756090 #### [facility] (DEFAULT) [address] [place] [address] eGFR AA >60 [facility] Comment on above: Result Comment: Biological Sciences Professor shannan Kidney disease could be indicated at eGFRs of less than 60 ml/min/1.73m2. Kidney Failure is indicated at less than 15 ml/min/1.73m2 Performed By: #### 7 857155, 5806056, 55680356, 4059594909, [id number] #### [facility] (DEFAULT) [address] [place] [address] 25237 Albumin [Mass/Vol] 4.0 g/dL Normal 3.5-5.0 [facility] Comment on above: Performed By: #### 7 089977, 2755976, 57471022, 2893093763, [id number] #### [facility] (DEFAULT) [address] [place] [address] 52981 Albumin/Globulin [Mass ratio] 1.1 {ratio} Low 1.4-2.6 [facility] Comment on above: Performed By: #### 7 860016, 3833279, 57624704, 4971629651, 5646940427 #### [facility] (DEFAULT) [address] [place] [address] Alk Phos 70 IU/L Normal 32-91 [facility] Comment on above: Performed By: #### 7 315163, 3654377, 43762003, 7246709205, [id number] #### [facility] (DEFAULT) [address] [place] [address] 38917 ALT/SGPT 42.0 IU/L Normal 17.0-63.0 [facility] Comment on above: Performed By: #### 7 909021, 2001854, 33780271, 3116910162, [id number] #### [facility] (DEFAULT) [address] [place] [address] 45902 Anion gap [Moles/Vol] 13.0 mmol/L Normal 5.0-19.0 [facility] Comment on above: Performed By: #### 7 518151, 9040475, 67466854, 5022314150, [id number] #### [facility] (DEFAULT) [address] [place] [address] 91304 AST/SGOT 27 IU/L Normal 15-41 [facility] Comment on above: Performed By: #### 7 397208, 6713701, 46137708, 6960590375, 8557842249 #### [facility] (DEFAULT) [address] [place] [address] 74419 Bili Total 0.7 mg/dL Normal 0.3-1.2 [facility] Comment on above: Performed By: #### 7 095374, 3750233, 31853784, 1043081003, 6697524482 #### [facility] (DEFAULT) [address] [place] [address] 91076 Calcium [Mass/Vol] 9.0 mg/dL Normal 8.9-10.3 [facility] Comment on above: Performed By: #### 7 011791, 7853543, 29656395, 0059494774, [id number] #### [facility] (DEFAULT) [address] [place] [address] 30590 Chloride [Moles/Vol] 102 mmol/L Normal 101-111 [facility] Comment on above: Performed By: #### 7 117173, 6791115, 05090308, 6671574161, 5943965304 #### [facility] (DEFAULT) [address] [place] [address] 43526 CO2 [Moles/Vol] 25 mmol/L Normal 21-32 [facility] Comment on above: Performed By: #### 7 556542, 8429039, 59558495, 7500419896, 6255370429 #### [facility] (DEFAULT) [address] [place] [address] 34074 Creatinine [Mass/Vol] 0.97 mg/dL Normal 0.90-1.30 [facility] Comment on above: Performed By: #### 7 769054, 6848611, 93066143, 7535265420, [id number] #### [facility] (DEFAULT) [address] [place] [address] 36121 Globulin (S) [Mass/Vol] 3.5 g/dL Normal 1.5-4.3 [facility] Comment on above: Performed By: #### 7 721898, 4356427, 92700626, 6180447936, [id number] #### [facility] (DEFAULT) [address] [place] [address] 77071 Glucose [Mass/Vol] 123.0 mg/dL High 74.0-118.0 [facility] Comment on above: Performed By: #### 7 745260, 3344089, 09400034, 2957866030, 2497872166 #### [facility] (DEFAULT) [address] [place] [address] 67669 Osmolality [Osmolality] 276 mOsm/L [facility] Comment on above: Performed By: #### 7 385851, 6326131, 20333101, 4666846122, 8988794852 #### [facility] (DEFAULT) [address] [place] [address] 90310 Potassium [Moles/Vol] 3.6 mmol/L Normal 3.6-5.1 [facility] Comment on above: Performed By: #### 7 755354, 0366779, 09183695, 6891954557, [id number] #### [facility] (DEFAULT) [address] [place] [address] 01269 Protein [Mass/Vol] 7.5 g/dL Normal 6.5-8.1 [facility] Comment on above: Performed By: #### 7 935327, 5162156, 59462728, 5446538178, [id number] #### [facility] (DEFAULT) [address] [place] [address] 91767 Sodium [Moles/Vol] 136.0 mmol/L Normal 136.0-144.0 [facility] Comment on above: Performed By: #### 7 208169, 5578177, 39813110, 0806518607, 1709383621 #### [facility] (DEFAULT) [address] [place] [address] 54708 Urea nitrogen [Mass/Vol] 19 mg/dL Normal 8-26 [facility] Comment on above: Performed By: #### 7 067383, 0649540, 52350864, 0709778298, [id number] #### [facility] (DEFAULT) [address] [place] [address] 22449 Urea nitrogen/Creatinine [Mass ratio] 20.0 mg/mg High 4.6-16.2 [facility] Comment on above: Performed By: #### 7 644970, 6005481, 17252477, 3867755300, 5098601906 #### [facility] (DEFAULT) [address] [place] [address] 55409 D-Dimeron 06-17-2020 D-Dimer 0.23 mg/L FEU Normal 0.19-0.50 [facility] Comment on above: Result Comment: The [...] Liver cirrhosis ? Performed By: #### 7 046401, 2721897, 50353906, 3554769817, [id number] #### [facility] (DEFAULT) [address] [place] [address] 31088 ED Clinical Summaryon 2019 ED Clinical Summary [facility] - Emergency Department [address] [place] [address] ED Clinical Summary PERSON INFORMATION Name: GEREMIAS MELCHOR Age: 54 Years Sex: MALE : 1965 MRN: Acct#: Visit Reason: Shortness of breath; SOB Arrival: 06/17/2020 15:26:17 Discharge: 06/17/2020 17:58:00 LOS: 000 02:32 Check In: 06/17/2020 15:26:17 Checkout:06/17/2020 17:58:00 Address: [address] [place] [address] PCP: Ericka Muniz MD PROVIDER INFORMATION Provider [...] Cough, Adult Follow-Up: With: Address: When: Ericka Taylor [place] [id number] Business (1) Within 3 to 5 days DIAGNOSIS: Viral URI with cough Patient Understands: Yes - Patient/family/caregiver verbalizes understanding of instructions given Comment: [facility] ED Note - Physicianon 2019 ED Note [...] % Auto Lymph % 25 % Auto Trinity % 7 % Auto Eos % 2.3 % Auto Baso % 0.5 % Neut Abs# 6.0 x103/mcL Lymph Abs# 2.3 x103/mcL Trinity Abs# 0.7 x103/mcL Eos Abs# 0.2 x103/mcL [...] and Plan Diagnosis Viral URI with cough ([id number] J06.9, Discharge, Medical) Plan Condition: Stable. Disposition: [...] [Verified on: 06/17/2020 18:26 EST] Otilia Francois [facility] ED Note-Nursingon 06-17-2020 ED Note-Nursing Patient arrives [facility] ED via private vehicle. Ambulated with a [...] feels more short of breath than normal. [facility] ED Patient Education Noteon 06-17-2020 ED Patient [...] to help relieve symptoms, such as: ? Vqcu-ekt-akybnbc cold medicines. ? Cough suppressants. Coughing is [...] other clear broths. General instructions ? Take ziqm-imk-qyudxdx and prescription medicines only as told by [...] and water are not available, use hand veneer cutter. ? Avoid touching your mouth, face, eyes, [...] 12/21/2001 Document Revised: 07/05/2019 Document Reviewed: 02/10/2018 [employer]Sugr Patient Education ? 2019 [employer]. ENT Cough, Adult Coughing is a reflex [...] these instructions at home: Medicines ? Take uadq-bsj-ttwshtr and prescription medicines only as told by [...] a condition that needs treatment. ? Take kgiz-tqd-ytoadpa and prescription medicines only as told by [...] Reviewed: 07/16/2019 Elsevier Patient Education ? 2019 [employer]. Normal [facility] ED Patient Summaryon 020 ED Patient Summary [facility] - Emergency Department [address] [place] [address] PATIENT DISCHARGE INSTRUCTIONS Patient Information Name: GEREMIAS MELCHOR Age: 54 Years Date of : 1965 [facility]: [id number] Reason For Visit: Shortness of breath; SOB Arrival Time: 06/17/2020 15:26:17 Primary Care Physician: Ericka Muniz MD Attending Physician: Landon Vegas MD Comment: Visit Diagnosis: Diagnoses This Visit Shortness of breath ([id number]) Viral URI with cough (J06.9) Prescription Information: If you have been given a prescription for narcotics, seek immediate medical attention if you have any difficulty breathing or any sudden status changes such as confusion and sleepiness. If you or anyone you know is experiencing suicidal thoughts, mental health, alcohol and/or drug addiction problems; contact the [facility] 31/01 Crisis Hotline -Mwnp 4HOPE to 527097. If you received any narcotics, sedation, or [...] legal documents With: Address: When: Ericka Muniz [address] [place] [address] Business (1) Within 3 to 5 days Medication Information: The exam and treatment you received today in the [facility] Emergency Department were for an urgent problem and are not intended as complete care. It is important for you to follow up with a doctor, nurse practitioner, or physician?s legal assistant for ongoing care. If your symptoms [...] can reach you if necessary. [facility] Emergency Department has provided you with a complete list of medications post discharge. Please inform your control inspector/provider of your visit and for further instruction [...] to help relieve symptoms, such as: ? Jmap-glm-fwzdexr cold medicines. ? Cough suppressants. Coughing is [...] other clear broths. General instructions ? Take kuao-cai-sgtusmi and prescription medicines only as told by [...] and water are not available, use hand veneer cutter. ? Avoid touching your mouth, face, eyes, [...] 12/21/2001 Document Revised: 07/05/2019 Document Reviewed: 02/10/2018 mySugr Patient Education ? 2020 [employer]. Cough, Adult Coughing is a reflex [...] these instructions at home: Medicines ? Take cytg-gke-lezboof and prescription medicines only as told by [...] a condition that needs treatment. ? Take ioej-dwt-ybnmdtv and prescription medicines only as told by [...] 12/24/2011 Document Revised: 07/16/2019 Document Reviewed: 07/16/2019 mySugr Patient Education ? 2019 [employer]. Viruses or Bacteria What?s got you sick? [...] and Prevention March 2014 Normal [facility] Extra Redon 06-17-2020 Tube Collected Yes [facility] Comment on above: Performed By: #### [id number], [id number] #### [facility] (DEFAULT) [address] [place] [address] TnI HSon 06-17-2020 Troponin I High Sensitivity 4 pg/mL Normal <=20 [facility] Comment on above: Result Comment: Male Baseline Delta 1Hr (Note pg/mL=ng/L) <20pg/mL 50-60% >20pg/mL 20% Female Baseline Delta 1Hr <15pg/mL 50-60% >15pg/mL 20% Other Baseline Delta 1Hr <18ng/mL 50-60% >18ng/mL 20% ([place] [employer] Guidelines February 2018) Performed By: #### 7 [id number], [id number] #### [facility] (DEFAULT) [address] [place] [address] Metabolic Panelon 04-08-2020 ALT [Catalytic activity/Vol] 50.0 U/L Invalid Interpretation Code reQwip Bilirubin [Mass/Vol] 0.3 mg/dL 0.0-1.0 reQwip HbA1c (Bld) [Mass fraction] 6.6 % 4.3-6.3 reQwip HbA1c (Bld) [Mass fraction] 6.60 % Invalid Interpretation Code reQwip Albumin [Mass/Vol] 4.50 g/dL Invalid Interpretation Code reQwip AST [Catalytic activity/Vol] 31.0 U/L Invalid Interpretation Code reQwip No Panel Informationon 04-08 6.6 Invalid Interpretation Code 4.3-6.3 reQwip 0.3 Invalid Interpretation Code 0.0-1.0 reQwip Negative Invalid Interpretation Code Negative reQwip Otheron 04-08-2020 Negative Negative reQwip 4+ Invalid Interpretation Code Negative reQwip Clear Invalid Interpretation Code Clear [facility] normal Invalid Interpretation Code normal reQwip yellow Invalid Interpretation Code yellow reQwip 50 0-50 reQwip 6 Invalid Interpretation Code 5.0-9.0 reQwip 31 Invalid Interpretation Code 0-40 reQwip 78 Invalid Interpretation Code 31-155 reQwip 1.010 Invalid Interpretation Code 1.003-1.030 reQwip 1.5 Invalid Interpretation Code 1.0-2.4 reQwip 4.5 Invalid Interpretation Code 3.7-4.5 reQwip 7.5 Invalid Interpretation Code 6.3-7.9 reQwip 143 Invalid Interpretation Code reQwip 115.0 mg/dL Invalid Interpretation Code <140 reQwip ls Invalid Interpretation Code reQwip MRI KNEE RIGHT WO CONTRASTon 03-25-2020 MRI [...] Jos Martins MD 03/25/20 Final result Normal [facility] Inner free edge degeneration of the medial [...] suggestive of sprains. No definite tear identified. [facility], [place] EXAMINATION: MRI OF THE RIGHT KNEE [...] are most compatible with a microtrabecular infraction. [facility]- [place], [place] Ezekiel, pn Incoming Radiant Results From [employer] - 03/25/2020 3:02 PM EDT EXAMINATION: MRI [...] suggestive of sprains. No definite tear identified. [place], [place] MRI SHOULDER RIGHT WO CONTRA STon 02-12-2020 MRI SHOULDER RIGHT WO CONTRAST EXAMINATION: [...] approximately 7 mm in greatest AP dimension. Xamwmhql-gd-lvlpzr underlying supraspinatus tendinopathy and granulation tissue. Cglc-mz-sbpetubs underlying infraspinatus tendinopathy. Mild subscapularis tendinopathy. Teres [...] 6. No paralabral cyst formation. GLENOHUMERAL JOINT: Otrs-rj-pphtaygy glenohumeral chondromalacia. Small amount of fluid in [...] dimension with tear gap measuring 1.5 cm. Jsenwzrb-ia-tijxnj underlying supraspinatus tendinopathy and granulation tissue. Kkdx-ci-ejqxkxer underlying infraspinatus tendinopathy. 2. Mild subscapularis tendinopathy. 3. Mild atrophy and fatty degeneration of subscapularis. 4. Mild diffuse labral degeneration. Degenerative tearing along the superior labrum. 5. Dcgy-az-uzjndgkj glenohumeral chondromalacia. 6. Mild degenerative change of the right AC joint. 7. Prior biceps tenodesis. 8. Susceptibility artifact and marrow edema surrounding a stress riser at the anterior humeral head. Interpreted by: Rodrigo Purcell MD Signed by: Rodrigo Purcell MD 02/12/20 Final result Normal [facility] 1. Prior rotator cuf f repair. Region of full-thickness tearing of the critical zone along mid and posterior supraspinatus measuring 7 mm in greatest AP dimension with tear gap measuring 1.5 cm. Uqmfmgju-nr-dpjjse underlying supraspinatus tendinopathy and granulation tissue. Zqor-dw-oklmyjvs underlying infraspinatus tendinopathy. 2. Mild subscapularis tendinopathy. 3. Mild atrophy and fatty degeneration of subscapularis. 4. Mild diffuse labral degeneration. Degenerative tearing along the superior labrum. 5. Mdkz-my-lncezwjh glenohumeral chondromalacia. 6. Mild degenerative change of the right AC joint. 7. Prior biceps tenodesis. 8. Susceptibility artifact and marrow edema surrounding a stress riser at the anterior humeral head. [facility], [place] EXAMINATION: MRI OF THE RIGHT SHOULDER [...] approximately 7 mm in greatest AP dimension. Lkolkuhn-ja-sgeffz underlying supraspinatus tendinopathy and granulation tissue. Uttk-tu-rnfblcfb underlying infraspinatus tendinopathy. Mild subscapularis tendinopathy. Teres [...] 6. No paralabral cyst formation. GLENOHUMERAL JOINT: Xorl-ox-jrxfiacz glenohumeral chondromalacia. Small amount of fluid in [...] unremarkable in appearance. No right axillary lymphadenopathy. [facility]- [place], [place], pn Incoming Radiant Results From [employer] - 02/12/2020 3:46 PM EDT EXAMINATION: MRI [...] approximately 7 mm in greatest AP dimension. Cqtkptbc-dw-bvxplw underlying supraspinatus tendinopathy and granulation tissue. Ctdh-aw-zfutlyvl underlying infraspinatus tendinopathy. Mild subscapularis tendinopathy. Teres [...] 6. No paralabral cyst formation. GLENOHUMERAL JOINT: Kquy-xi-gifwdfjc glenohumeral chondromalacia. Small amount of fluid in [...] dimension with tear gap measuring 1.5 cm. Adkcjxbj-af-wcceag underlying supraspinatus tendinopathy and granulation tissue. Paqd-pj-wiuhnvwh underlying infraspinatus tendinopathy. 2. Mild subscapularis tendinopathy. 3. Mild atrophy and fatty degeneration of subscapularis. 4. Mild diffuse labral degeneration. Degenerative tearing along the superior labrum. 5. Glpg-lu-rvzzhcfl glenohumeral chondromalacia. 6. Mild degenerative change of the right AC joint. 7. Prior biceps tenodesis. 8. Susceptibility artifact and marrow edema surrounding a stress riser at the anterior humeral head. [place], [place] Glucose, Whole Bloodon 12-27 Glucose [Mass/Vol] 113 mg/dL High 74 - 100 mg/dL [place] Interpretation and review of laboratory results Abnormal [place] BUNon 12-26-2019 Urea nitrogen [Mass/Vol] 16 mg/dL 6 - 20 mg/dL [place] BUN (Urea N)on 12-26-2019 Urea nitrogen [Mass/Vol] 16 mg/dL Normal 6-20 [facility] Comment on above: Performed By: #### H CT, BUN, CREG, GLU, LYTE #### [facility] [address] [place], [place] [address] Program Supervisor: Domingo Rayo MD Creatinine w/GFRon 0 (cont.) Normal [facility] Comment on above: Result Comment: Aver age GFR for 50-59 years old: 93 mL/min/1.73sq m Chronic Kidney Disease: <60 mL/min/1.73sq m Kidney failure: <15 mL/min/1.73sq m eGFR calculated using average adult body mass. Additional eGFR calculator available at: http://www.[employer]/multiple_crcl_2012.htm Performed By: #### H CT, BUN, CREG, GLU, LYTE #### [facility] [address] [place] [address] Program Supervisor: Domingo Rayo MD Creatinine [Mass/Vol] 1.15 mg/dL Normal 0.70-1.20 [facility] Comment on above: Performed By: #### H CT, BUN, CREG, GLU, LYTE #### [facility] [address] [place] [address] Program Supervisor: Domingo Rayo MD GFR, Amer >60 Normal >60 [facility] Comment on above: Performed By: #### H CT, BUN, CREG, GLU, LYTE #### [facility] [address] [place] [address] Program Supervisor: Domingo Rayo MD GFR,non Amer >60 Normal >60 [facility] Comment on above: Performed By: #### H CT, BUN, CREG, GLU, LYTE #### [facility] [address] [place] [address] Program Supervisor: Domingo Rayo MD Staging: Normal [facility] Comment on above: Result Comment: Stag e 1: Some kidney damage normal GFR Stage 2: Mild kidney damage GFR 60-89 Stage 3: Moderate kidney damage GFR 30-59 Stage 4: Severe kidney damage GFR 15-29 Stage 5: Severe kidney damage GFR <15 ESRD - chronic treatment by dialysis or transplant Performed By: #### H CT, BUN, CREG, GLU, LYTE #### [facility] [address] [place] [address] Program Supervisor: Domingo Rayo MD Creatinine, Serumon 12-26-19 Creatinine [Mass/Vol] 1.15 mg/dL 0.7 - 1.2 mg/dL [place] GFR >60 >60 mL/min [place] GFR Non- >60 >60 mL/min [place] Electrolyte Panelon 12-26-19 Anion gap [Moles/Vol] 17 mmol/L 9 - 17 mmol/L [place] Chloride [Moles/Vol] 95 mmol/L Low 98 - 107 mmol/L [place] CO2 [Moles/Vol] 24 mmol/L 20 - 31 mmol/L [place] Potassium [Moles/Vol] 3.7 mmol/L 3.7 - 5.3 mmol/L [place] Sodium [Moles/Vol] 136 mmol/L 135 - 144 mmol/L [place] Electrolyteson 12-26-2019 Anion gap [Moles/Vol] 17 mmol/L Normal 03-27 [facility] Comment on above: Performed By: #### H CT, BUN, CREG, GLU, LYTE #### [facility] [address] [place], [place] [id number] Program Supervisor: Domingo Rayo MD Chloride [Moles/Vol] 95 mmol/L Low 98-107 [facility] Comment on above: Performed By: #### H CT, BUN, CREG, GLU, LYTE #### [facility] [address] [place] [address] Program Supervisor: Domingo Rayo MD CO2 [Moles/Vol] 24 mmol/L Normal 20-31 [facility] Comment on above: Performed By: #### H CT, BUN, CREG, GLU, LYTE #### [facility] [address] [place] [address] Program Supervisor: Domingo Rayo MD Potassium [Moles/Vol] 3.7 mmol/L Normal 3.7-5.3 [facility] Comment on above: Performed By: #### H CT, BUN, CREG, GLU, LYTE #### [facility] [address] [place] [facility] Program Supervisor: Domingo Rayo MD Sodium [Moles/Vol] 136 mmol/L Normal 135-144 [facility] Comment on above: Performed By: #### H CT, BUN, CREG, GLU, LYTE #### [facility] [address] [place] [address] Program Supervisor: Domingo Rayo MD Glucoseon 12-26-2019 Glucose [Mass/Vol] 107 mg/dL High 70-99 [facility] Comment on above: Performed By: #### H CT, BUN, CREG, GLU, LYTE #### [facility] [address] [place] [address] Program Supervisor: Domingo Rayo MD Glucose, randomon 12-26-2019 Glucose [Mass/Vol] 107 mg/dL High 70 - 99 mg/dL [facility], [place] Hematocriton 12-26-2019 Hematocrit (Bld) [Volume fraction] 47.4 % Normal 40.7-50.3 [facility] Comment on above: Performed By: #### H CT, BUN, CREG, GLU, LYTE #### [facility] [address] [place] [address] Program Supervisor: Domingo Rayo MD Hematocrit (Bld) [Volume fraction] 47.4 % 40.7 - 50.3 % [place] Metabolic Panelon 12-26-2019 GFR/1.73 sq M predicted among non-blacks MDRD (S/P/Bld) [Vol rate/Area] [place] Comment on above: Average GFR for 50-5 9 years old: 93 mL/min/1.73sq m Chronic Kidney Disease: <60 mL/min/1.73sq m Kidney failure: <15 mL/min/1.73sq m eGFR calculated using average adult body mass. Additional eGFR calculator available at: http://www.[employer]/inContact_crcl_2012.htm Stage 1: Some kidney damage normal GFR Stage 2: Mild kidney damage GFR 60-89 Stage 3: Moderate kidney damage GFR 30-59 Stage 4: Severe kidney damage GFR 15-29 Stage 5: Severe kidney damage GFR <15 ESRD - chronic treatment by dialysis or transplant Otheron 12-26-2019 Interpretation and review of laboratory results Abnormal [place] COVID-19on 12-25-2019 SARS-CoV-2 Not Detected Not Detected [place], [place] Comment on above: The specimen is NEGATIVE for SARS-CoV-2, the novel coronavirus associated with COVID-19. A negative result does not rule out COVID-19. This test has been authorized by the FDA under an Emergency Use Authorization (EUA) for use by authorized laboratories. Fact sheet for Healthcare Providers: https://www.fda.gov/media/513742/download Fact sheet for Patients: https://www.fda.gov/media/141184/download METHODOLOGY: RT-PCR SARS-CoV-2, PCR [place], [place] SARS-CoV-2, Rapid [facility] [place] Source .NASOPHARYNGEAL SWAB [place], [place] [id number]-[id number] 12-25-2019 SARS-CoV-2,Rapid Normal [facility] Comment on above: Performed By: #### C OVID #### [facility] [address] [place] [address] Program Supervisor: Sam Jacobs MD [facility] [address] [place] [address] Program Supervisor: Domingo Rayo MD SARS-CoV-2 [facility] Comment on above: Performed By: #### C OVID #### [facility] [address] [place] [address] Program Supervisor: Sam Jacobs MD [facility] [address] [place] [address] [place] [address] Program Supervisor: Domingo Rayo MD SARS-CoV-2 Not Detected [facility] Comment on above: Result Comment: The specimen is NEGATIVE for SARS-CoV-2, the novel coronavirus associated with COVID-19. A negative result does not rule out COVID-19. This test has been authorized by the FDA under an Emergency Use Authorization (EUA) for use by authorized laboratories. Fact sheet for Healthcare Providers: https://www.fda.gov/media/044472/download Fact sheet for Patients: https://www.fda.gov/media/273255/download METHODOLOGY: RT-PCR Performed By: #### C OVID #### [facility] [address] [place] [address] Program Supervisor: Sam Jacobs MD [facility] [address] [place] [address] Program Supervisor: Domingo Rayo MD EKG 12 Leadon 12-24-2019 Atrial Rate 92 BPM [facility], [place] P [place] 52 degrees [facility], [place] P-R Interval 154 ms [facility] [place], [place] Q-T Interval 360 ms [facility] [place] QRS Duration 96 ms [facility], [place] QTc Calculation (Bazett) 445 ms [facility] [place], [place] R [place] 34 degrees [facility] [place], [place] T [place] 46 degrees [facility] [place], [place] Ventricular Rate 92 BPM [place], [place] Normal sinus rhythm Normal ECG No previous ECGs available Confirmed by Federico Burks MD ([id number]) on 12/24/2019 4:59:35 PM [place], [place], Mhpn Incoming E kg Results From [employer] [place] - 12/24/2019 4:59 PM EDT Normal sinus rhythm Normal ECG No previous ECGs available Confirmed by Federico Burks MD ([id number]) on 12/24/2019 4:59:35 PM [facility] JACQUELINE [id number] 12-24-2019 SARS-CoV-2 Source .NASOPHARYNGEAL SWAB Normal [facility] Comment on above: Performed By: #### C OVID #### [facility] [email or web address] [address] [place] [address] Program Supervisor: Sam Jacobs MD [facility] [address] [place] [address] Program Supervisor: Domingo Rayo MD Laboratory - Chemistry and C hemistry - challengeon 12-20-2019 Bilirubin Ql (U) Negative Invalid Interpretation Code Negative reQwip Urobilinogen (U) [Mass/Vol] normal Invalid Interpretation Code normal re[facility] Laboratory - Hematology and Cell countson 12-20-2019 Hemoglobin Ql (U) Negative Invalid Interpretation Code Negative reQwip Laboratory - Urinalysison Leukocyte esterase Test strip Ql (U) Negative Invalid Interpretation Code Negative re[facility]wip Nitrite Ql (U) Negative Invalid Interpretation Code Negative re[facility]wip Protein Ql (U) Negative Invalid Interpretation Code Negative re[facility]wip Metabolic Panelon 12-20-2019 Anion gap [Moles/Vol] 20 mmol/L Invalid Interpretation Code 10-20 re[facility] Calcium [Mass/Vol] 9.10 mg/dL Invalid Interpretation Code 8.5-10.8 [facility] Chloride [Moles/Vol] 97.0 mmol/L Invalid Interpretation Code 100-112 [facility] CO2 [Moles/Vol] 23.0 mmol/L Invalid Interpretation Code 23-30 [facility] [employer] Creatinine [Mass/Vol] 1.0 mg/dL Invalid Interpretation Code 0.5-1.5 [facility] [employer] GFR/1.73 sq M predicted among non-blacks MDRD (S/P/Bld) [Vol rate/Area] 78 mL/min/{1.73_m2} Invalid Interpretation Code [facility] [employer] Glucose [Mass/Vol] 90.0 mg/dL Invalid Interpretation Code 80-117 [facility] [employer] HbA1c (Bld) [Mass fraction] 6.80 % Invalid Interpretation Code 4.3-6.3 [facility] Potassium [Moles/Vol] 4.10 mmol/L Invalid Interpretation Code 3.5-5.3 [facility] Sodium [Moles/Vol] 136.0 mmol/L Invalid Interpretation Code 135-148 [facility] Urea nitrogen [Mass/Vol] 16.0 mg/dL Invalid Interpretation Code 7-25 [facility] Urea nitrogen/Creatinine [Mass ratio] 16 mg/mg Invalid Interpretation Code 6-20 [facility] Otheron 12-20-2019 Bilirubin Ql (U) Negative Negative [facility] [employer] Glucose Test strip (U) [Mass/Vol] 4+ Invalid Interpretation Code Negative [facility] [employer] Hemoglobin Ql (U) Negative Negative [facility] [employer] Nitrite Ql (U) Negative Negative reQwip pH (U) 5 [pH] Invalid Interpretation Code 5.0-9.0 [facility] Protein Ql (U) Negative Negative [facility] Urobilinogen Test strip (U) [Mass/Vol] normal normal reQwip 148 reQwip 148.0 mg/dL Invalid Interpretation Code re[facility]ip Urinalysison 12-20-2019 Clarity (U) clear Invalid Interpretation Code Clear re[facility]ip Color (U) yellow Invalid Interpretation Code yellow re[facility]ip Ketones Ql (U) 1+ Invalid Interpretation Code Negative re[facility]ip Leukocyte esterase Test strip Ql (U) Negative Negative re[facility]ip Specific gravity (U) [Rel density] 1.010 Invalid Interpretation Code 1.003-1.030 [facility] 11-19-2019 Cholesterol [Mass/Vol] 153.0 mg/dL Invalid Interpretation Code 0-200 [facility] Cholesterol in HDL [Mass/Vol] 56.0 mg/dL Invalid Interpretation Code 36-100 [facility] Cholesterol in LDL [Mass/Vol] 80.0 mg/dL Invalid Interpretation Code 0-130 [facility] Triglyceride [Mass/Vol] 84.0 mg/dL Invalid Interpretation Code 30-150 [facility] Metabolic Panelon 11-19-2019 Albumin [Mass/Vol] 4.60 g/dL Invalid Interpretation Code 3.7-4.5 [facility] ALP [Catalytic activity/Vol] 75.0 U/L Invalid Interpretation Code 31-155 [facility] ALT [Catalytic activity/Vol] 54.0 U/L Invalid Interpretation Code 0-50 [facility] Anion gap [Moles/Vol] 18 mmol/L Invalid Interpretation Code 10-20 [facility] AST [Catalytic activity/Vol] 37.0 U/L Invalid Interpretation Code 0-40 [facility] Bilirubin [Mass/Vol] 0.50 mg/dL Invalid Interpretation Code 0.0-1.0 [facility] Calcium [Mass/Vol] 9.40 mg/dL Invalid Interpretation Code 8.5-10.8 [facility] Chloride [Moles/Vol] 99.0 mmol/L Invalid Interpretation Code 100-112 [facility] CO2 [Moles/Vol] 27.0 mmol/L Invalid Interpretation Code 23-30 [facility] Creatinine [Mass/Vol] 1.0 mg/dL Invalid Interpretation Code 0.5-1.5 [facility] GFR/1.73 sq M predicted among non-blacks MDRD (S/P/Bld) [Vol rate/Area] 78 mL/min/{1.73_m2} Invalid Interpretation Code re[facility]ip Glucose [Mass/Vol] 120.0 mg/dL Invalid Interpretation Code 80-117 [facility] HbA1c (Bld) [Mass fraction] 6.80 % Invalid Interpretation Code 4.3-6.3 [facility] Potassium [Moles/Vol] 4.0 mmol/L Invalid Interpretation Code 3.5-5.3 [facility] Protein [Mass/Vol] 7.80 g/dL Invalid Interpretation Code 6.3-7.9 [facility] Sodium [Moles/Vol] 140.0 mmol/L Invalid Interpretation Code 135-148 [facility] Urea nitrogen [Mass/Vol] 13.0 mg/dL Invalid Interpretation Code 7-25 [facility] Urea nitrogen/Creatinine [Mass ratio] 13 mg/mg Invalid Interpretation Code 6-20 [facility] Otheron 11-19-2019 Albumin (U) [Mass/Vol] 22.3 Invalid Interpretation Code <17.0 [facility] Albumin/Globulin [Mass ratio] 1.4 {ratio} Invalid Interpretation Code 1.0-2.4 [facility] Cholesterol in VLDL [Mass/Vol] 17.0 mg/dL Invalid Interpretation Code 0-39 [facility] Cholesterol.total/C holesterol in HDL [Mass ratio] 3 {ratio} Invalid Interpretation Code [facility] 148.0 mg/dL Invalid Interpretation Code [facility] 54.0 U/L 0-50 [facility] Urinalysison 11-19-2019 Albumin/Creatinine DL <= 20 mg/L (U) [Mass ratio] 29.8 mg/g Invalid Interpretation Code 0.0-30.0 [facility] Creatinine (U) [Mass/Vol] 74.90 mg/dL Invalid Interpretation Code Not Estab. mg/dL [facility] Metabolic Panelon 08-28-2019 Anion gap [Moles/Vol] 16 mmol/L Invalid Interpretation Code 10-20 [facility] Calcium [Mass/Vol] 9.70 mg/dL Invalid Interpretation Code 8.5-10.8 [facility] Chloride [Moles/Vol] 100.0 mmol/L Invalid Interpretation Code 100-112 [facility] CO2 [Moles/Vol] 27.0 mmol/L Invalid Interpretation Code 23-30 [facility] Creatinine [Mass/Vol] 1.10 mg/dL Invalid Interpretation Code 0.5-1.5 [facility] GFR/1.73 sq M predicted among non-blacks MDRD (S/P/Bld) [Vol rate/Area] 70 mL/min/{1.73_m2} Invalid Interpretation Code [facility] Glucose [Mass/Vol] 137.0 mg/dL Invalid Interpretation Code 80-117 [facility] Potassium [Moles/Vol] 4.0 mmol/L Invalid Interpretation Code 3.5-5.3 [facility] Sodium [Moles/Vol] 139.0 mmol/L Invalid Interpretation Code 135-148 [facility] Urea nitrogen [Mass/Vol] 26.0 mg/dL Invalid Interpretation Code 7-25 [facility] Urea nitrogen/Creatinine [Mass ratio] 24 mg/mg Invalid Interpretation Code 6-20 [facility] Laboratory - Chemistry and C hemistry - challengeon 08-21-2019 Bilirubin Ql (U) Negative Invalid Interpretation Code Negative [facility] Ketones Ql (U) Negative Invalid Interpretation Code Negative [facility] Urobilinogen (U) [Mass/Vol] normal Invalid Interpretation Code normal [facility] Laboratory - Urinalysison Nitrite Ql (U) Negative Invalid Interpretation Code Negative [facility] Metabolic Panelon 08-21-2019 Anion gap [Moles/Vol] 18 mmol/L Invalid Interpretation Code 10-20 [facility] Calcium [Mass/Vol] 9.70 mg/dL Invalid Interpretation Code 8.5-10.8 [facility] Chloride [Moles/Vol] 97.0 mmol/L Invalid Interpretation Code 100-112 [facility] CO2 [Moles/Vol] 25.0 mmol/L Invalid Interpretation Code 23-30 [facility] Creatinine [Mass/Vol] 2.30 mg/dL Invalid Interpretation Code 0.5-1.5 [facility] GFR/1.73 sq M predicted among non-blacks MDRD (S/P/Bld) [Vol rate/Area] 30 mL/min/{1.73_m2} Invalid Interpretation Code [facility] Glucose [Mass/Vol] 231.0 mg/dL Invalid Interpretation Code 80-117 [facility] HbA1c (Bld) [Mass fraction] 7.60 % Invalid Interpretation Code 4.3-6.3 [facility] Potassium [Moles/Vol] 4.50 mmol/L Invalid Interpretation Code 3.5-5.3 [facility] Sodium [Moles/Vol] 135.0 mmol/L Invalid Interpretation Code 135-148 [facility] Urea nitrogen [Mass/Vol] 34.0 mg/dL Invalid Interpretation Code 7-25 [facility] Urea nitrogen/Creatinine [Mass ratio] 15 mg/mg Invalid Interpretation Code 6-20 [place] [facility] Otheron 08-21-2019 Bilirubin Ql (U) Negative Negative [facility] Gamma glutamyl transferase [Catalytic activity/Vol] 72 U/L Invalid Interpretation Code 7-51 [place] [facility] Glucose Test strip (U) [Mass/Vol] 4+ Invalid Interpretation Code Negative [place] [facility] Hemoglobin Ql (U) Trace Invalid Interpretation Code Negative [place] [facility] Nitrite Ql (U) Negative Negative [place] [facility] pH (U) 5 [pH] Invalid Interpretation Code 5.0-9.0 [place] [facility] Protein Ql (U) 1+ Invalid Interpretation Code Negative [place] [facility] Urobilinogen Test strip (U) [Mass/Vol] normal normal [place] [facility] 171 [place] [facility] 171.0 mg/dL Invalid Interpretation Code [facility] Urinalysison 08-21-2019 Clarity (U) Clear Invalid Interpretation Code Clear [place] [facility] Color (U) yellow Invalid Interpretation Code yellow [facility] Ketones Ql (U) Negative Negative [facility] Leukocyte esterase Test strip Ql (U) Trace Invalid Interpretation Code Negative [facility] Specific gravity (U) [Rel density] 1.015 Invalid Interpretation Code 1.003-1.030 [facility] 05-22-2019 Cholesterol [Mass/Vol] 164.0 mg/dL Invalid Interpretation Code 0-200 [facility] Cholesterol in HDL [Mass/Vol] 33.0 mg/dL Invalid Interpretation Code 36-100 [facility] Cholesterol in LDL [Mass/Vol] 89.0 mg/dL Invalid Interpretation Code 0-130 [facility] Triglyceride [Mass/Vol] 208.0 mg/dL Invalid Interpretation Code 30-150 [facility] Hematologyon 05-22-2019 Hematocrit (Bld) [Volume fraction] 44.80 % Invalid Interpretation Code 37.8-51.0 [facility] Hemoglobin (Bld) [Mass/Vol] 15.30 g/dL Invalid Interpretation Code 12.6-17.0 [facility] MCH (RBC) [Entitic mass] 31.40 pg Invalid Interpretation Code 25.7-33.8 [facility] MCV (RBC) [Entitic vol] 92.0 fL Invalid Interpretation Code 81.0-100.2 [facility] Platelets (Bld) [#/Vol] 316.0 10*3/uL Invalid Interpretation Code 150-400 [facility] RBC (Bld) [#/Vol] 4.870 10*6/uL Invalid Interpretation Code 4.34-5.61 [facility] WBC (Bld) [#/Vol] 8.50 10*3/uL Invalid Interpretation Code 3.9-10.3 [facility] Imm/Pathon 05-22-2019 Prostate specific Ag [Mass/Vol] 0.59 ng/mL Invalid Interpretation Code 0.00-4.00 [facility] Laboratory - Chemistry and C hemistry - challengeon 05-22-2019 Bilirubin Ql (U) Negative Invalid Interpretation Code Negative [facility] Ketones Ql (U) Negative Invalid Interpretation Code Negative [facility] Urobilinogen (U) [Mass/Vol] normal Invalid Interpretation Code normal [facility] Laboratory - Hematology and Cell countson 05-22-2019 Hemoglobin Ql (U) Negative Invalid Interpretation Code Negative [facility] Laboratory - Urinalysison Leukocyte esterase Test strip Ql (U) Negative Invalid Interpretation Code Negative [facility] Nitrite Ql (U) Negative Invalid Interpretation Code Negative [facility] Protein Ql (U) Negative Invalid Interpretation Code Negative [facility] Metabolic Panelon 05-22-2019 Albumin [Mass/Vol] 4.30 g/dL Invalid Interpretation Code 3.7-4.5 [facility] ALP [Catalytic activity/Vol] 79.0 U/L Invalid Interpretation Code 31-155 [facility] ALT [Catalytic activity/Vol] 23.0 U/L Invalid Interpretation Code 0-50 [facility] Anion gap [Moles/Vol] 16 mmol/L Invalid Interpretation Code 10-20 [facility] AST [Catalytic activity/Vol] 15.0 U/L Invalid Interpretation Code 0-40 [facility] Bilirubin [Mass/Vol] 0.40 mg/dL Invalid Interpretation Code 0.0-1.0 [facility] Calcium [Mass/Vol] 9.60 mg/dL Invalid Interpretation Code 8.5-10.8 [facility] Chloride [Moles/Vol] 97.0 mmol/L Invalid Interpretation Code 100-112 [place] [facility] CO2 [Moles/Vol] 27.0 mmol/L Invalid Interpretation Code 23-30 [place] [facility] Creatinine [Mass/Vol] 1.10 mg/dL Invalid Interpretation Code 0.5-1.5 [place] [facility] GFR/1.73 sq M predicted among non-blacks MDRD (S/P/Bld) [Vol rate/Area] 70 mL/min/{1.73_m2} Invalid Interpretation Code [place] [facility] Glucose [Mass/Vol] 101.0 mg/dL Invalid Interpretation Code 80-117 [place] [facility] Potassium [Moles/Vol] 4.30 mmol/L Invalid Interpretation Code 3.5-5.3 [place] [facility] Protein [Mass/Vol] 7.60 g/dL Invalid Interpretation Code 6.3-7.9 [place] [facility] Sodium [Moles/Vol] 136.0 mmol/L Invalid Interpretation Code 135-148 [place] [facility] Urea nitrogen [Mass/Vol] 21.0 mg/dL Invalid Interpretation Code 7-25 [place] [facility] Urea nitrogen/Creatinine [Mass ratio] 19 mg/mg Invalid Interpretation Code 6-20 [place] [facility] Otheron 05-22-2019 Albumin/Globulin [Mass ratio] 1.3 {ratio} Invalid Interpretation Code 1.0-2.4 [place] [facility] Bilirubin Ql (U) Negative Negative [facility] Cholesterol in VLDL [Mass/Vol] 42.0 mg/dL Invalid Interpretation Code 0-39 [facility] Cholesterol.total/C holesterol in HDL [Mass ratio] 5 {ratio} Invalid Interpretation Code [facility] Collection time (Andrei) [Date/time] 1:00 pm Invalid Interpretation Code [place] [facility] Erythrocyte distribution width (RBC) [Ratio] 12.40 % Invalid Interpretation Code 11.5-15.5 [place] [facility] Glucose Test strip (U) [Mass/Vol] 4+ Invalid Interpretation Code Negative [place] [facility] Hemoglobin Ql (U) Negative Negative [facility] MCHC (RBC) [Mass/Vol] 34.20 g/dL Invalid Interpretation Code 32.0-36.0 [facility] Nitrite Ql (U) Negative Negative [place] [facility] pH (U) 5 [pH] Invalid Interpretation Code 5.0-9.0 [facility] Platelet mean volume (Bld) [Entitic vol] 9.40 fL Invalid Interpretation Code 8.3-11.5 [facility] Protein Ql (U) Negative Negative [place] [facility] Urobilinogen Test strip (U) [Mass/Vol] normal normal [facility] 23.0 U/L 0-50 [facility] Urinalysison 05-22-2019 Clarity (U) Clear Invalid Interpretation Code Clear [facility] Color (U) yellow Invalid Interpretation Code yellow [facility] Ketones Ql (U) Negative Negative [facility] Leukocyte esterase Test strip Ql (U) Negative Negative [facility] Specific gravity (U) [Rel density] 1.015 Invalid Interpretation Code 1.003-1.030 [facility] Laboratory - Chemistry and C hemistry - challengeon 04-09-2019 Bilirubin Ql (U) Negative Invalid Interpretation Code Negative [facility] Urobilinogen (U) [Mass/Vol] normal Invalid Interpretation Code normal [facility] Laboratory - Hematology and Cell countson 04-09-2019 Hemoglobin Ql (U) Negative Invalid Interpretation Code Negative [facility] Laboratory - Urinalysison Leukocyte esterase Test strip Ql (U) Negative Invalid Interpretation Code Negative [facility] Nitrite Ql (U) Negative Invalid Interpretation Code Negative [facility] Metabolic Panelon 04-09-2019 Albumin [Mass/Vol] 4.50 g/dL Invalid Interpretation Code 3.7-4.5 [facility] ALP [Catalytic activity/Vol] 73.0 U/L Invalid Interpretation Code 31-155 [facility] ALT [Catalytic activity/Vol] 47.0 U/L Invalid Interpretation Code 0-50 [facility] Anion gap [Moles/Vol] 17 mmol/L Invalid Interpretation Code 10-20 [facility] AST [Catalytic activity/Vol] 41.0 U/L Invalid Interpretation Code 0-40 [facility] Bilirubin [Mass/Vol] 0.50 mg/dL Invalid Interpretation Code 0.0-1.0 [facility] Calcium [Mass/Vol] 9.30 mg/dL Invalid Interpretation Code 8.5-10.8 [facility] Chloride [Moles/Vol] 97.0 mmol/L Invalid Interpretation Code 100-112 [facility] CO2 [Moles/Vol] 27.0 mmol/L Invalid Interpretation Code 23-30 [facility] Creatinine [Mass/Vol] 0.90 mg/dL Invalid Interpretation Code 0.5-1.5 [facility] GFR/1.73 sq M predicted among non-blacks MDRD (S/P/Bld) [Vol rate/Area] 88 mL/min/{1.73_m2} Invalid Interpretation Code [facility] Glucose [Mass/Vol] 186.0 mg/dL Invalid Interpretation Code 80-117 [facility] HbA1c (Bld) [Mass fraction] 7.70 % Invalid Interpretation Code 4.3-6.3 [facility] Potassium [Moles/Vol] 4.0 mmol/L Invalid Interpretation Code 3.5-5.3 [facility] Protein [Mass/Vol] 7.60 g/dL Invalid Interpretation Code 6.3-7.9 [facility] Sodium [Moles/Vol] 137.0 mmol/L Invalid Interpretation Code 135-148 [facility] Urea nitrogen [Mass/Vol] 16.0 mg/dL Invalid Interpretation Code 7-25 [facility] Urea nitrogen/Creatinine [Mass ratio] 18 mg/mg Invalid Interpretation Code 6-20 [facility] Otheron 04-09-2019 Albumin (U) [Mass/Vol] 48.5 Invalid Interpretation Code <17.0 [facility] Albumin/Globulin [Mass ratio] 1.5 {ratio} Invalid Interpretation Code 1.0-2.4 [place] [facility] Bilirubin Ql (U) Negative Negative [facility] [place] [employer] Gamma glutamyl transferase [Catalytic activity/Vol] 52 U/L Invalid Interpretation Code 7-51 [place] [facility] Glucose Test strip (U) [Mass/Vol] 4+ Invalid Interpretation Code Negative [place] [facility] Hemoglobin Ql (U) Negative Negative [facility] [address] [place] [employer] Nitrite Ql (U) Negative Negative [place] [facility] pH (U) 6 [pH] Invalid Interpretation Code 5.0-9.0 [place] [facility] Protein Ql (U) 1+ Invalid Interpretation Code Negative [place] [facility] Urobilinogen Test strip (U) [Mass/Vol] normal normal [place] [facility] 174 [place] [facility] 47.0 U/L 0-50 [place] [facility] 174.0 mg/dL Invalid Interpretation Code [place] [facility] Urinalysison 04-09-2019 Albumin/Creatinine DL <= 20 mg/L (U) [Mass ratio] 70.7 mg/g Invalid Interpretation Code 0.0-30.0 [place] [facility] Clarity (U) clear Invalid Interpretation Code Clear [place] [facility] Color (U) yellow Invalid Interpretation Code yellow [place] [facility] Creatinine (U) [Mass/Vol] 68.60 mg/dL Invalid Interpretation Code Not Estab. mg/dL [place] [facility] Ketones Ql (U) 2+ Invalid Interpretation Code Negative [facility] Leukocyte esterase Test strip Ql (U) Negative Negative [facility] Specific gravity (U) [Rel density] 1.010 Invalid Interpretation Code 1.003-1.030 [facility] Laboratory - Chemistry and C hemistry - challengeon 12-08-2018 Bilirubin Ql (U) Negative Invalid Interpretation Code Negative [facility] Urobilinogen (U) [Mass/Vol] normal Invalid Interpretation Code normal [facility] Laboratory - Hematology and Cell countson 12-08-2018 Hemoglobin Ql (U) Negative Invalid Interpretation Code Negative [facility] Laboratory - Urinalysison Leukocyte esterase Test strip Ql (U) Negative Invalid Interpretation Code Negative [facility] Nitrite Ql (U) Negative Invalid Interpretation Code Negative [facility] Protein Ql (U) Negative Invalid Interpretation Code Negative [facility] Metabolic Panelon 12-08-2018 Glucose mass conc 255.0 mg/dL Invalid Interpretation Code 80-117 [facility] Hemoglobin A1c/Hemoglobin.tota l mass fraction (Bld) 8.80 % Invalid Interpretation Code 4.3-6.3 [facility] Otheron 12-08-2018 Bilirubin Ql (U) Negative [facility] Glucose Test strip mass conc (U) 4+ Invalid Interpretation Code Negative [facility]l (U) Negative [facility] Nitrite Ql (U) Negative Negative [facility] pH (U) 6 [pH] Invalid Interpretation Code 5.0-9.0 [facility] Protein Ql (U) Negative Negative [facility] Urobilinogen Test strip mass conc (U) normal normal [facility] 206 [facility] 206.0 mg/dL Invalid Interpretation Code [facility] Urinalysison 12-08-2018 Clarity Nom (U) Clear Invalid Interpretation Code Clear [facility] Color Nom (U) yellow Invalid Interpretation Code yellow [facility] Ketones Ql (U) 1+ Invalid Interpretation Code Negative [facility] Leukocyte esterase Test strip Ql (U) Negative Negative [facility] Specific gravity Relative Density (U) 1.015 Invalid Interpretation Code 1.003-1.030 [facility] 08-23-2018 Cholesterol in HDL mass conc 35.0 mg/dL Invalid Interpretation Code 36-100 [facility] Cholesterol in LDL mass conc 90.0 mg/dL Invalid Interpretation Code 0-130 [facility] Cholesterol mass conc 204.0 mg/dL Invalid Interpretation Code 0-200 [facility] Triglyceride mass conc 396.0 mg/dL Invalid Interpretation Code 30-150 [facility] Hematologyon 08-23-2018 Hematocrit Volume Fraction (Bld) 44.0 % Invalid Interpretation Code 37.8-51.0 [facility] Hemoglobin mass conc (Bld) 15.20 g/dL Invalid Interpretation Code 12.6-17.0 [facility] MCH Entitic mass (RBC) 32.0 pg Invalid Interpretation Code 25.7-33.8 [facility] MCV Entitic volume (RBC) 92.60 fL Invalid Interpretation Code 81.0-100.2 [facility] Platelets #/vol (Bld) 244.0 10*3/uL Invalid Interpretation Code 150-400 [facility] RBC #/vol (Bld) 4.750 10*6/uL Invalid Interpretation Code 4.34-5.61 [facility] WBC #/vol (Bld) 6.80 10*3/uL Invalid Interpretation Code 3.9-10.3 [facility] Imm/Pathon 08-23-2018 Prostate specific Ag mass conc 0.61 ng/mL Invalid Interpretation Code 0.00-4.00 [facility] Metabolic Panelon 08-23-2018 Albumin mass conc 4.50 g/dL Invalid Interpretation Code 3.7-4.5 [facility] ALP enzyme act/vol 75.0 U/L Invalid Interpretation Code 31-155 [facility] ALT enzyme act/vol 66.0 U/L Invalid Interpretation Code 0-50 [facility] Anion gap molar conc 20 mmol/L Invalid Interpretation Code 10-20 [facility] AST enzyme act/vol 39.0 U/L Invalid Interpretation Code 0-40 [facility] Bilirubin mass conc 0.40 mg/dL Invalid Interpretation Code 0.0-1.0 [facility] Calcium mass conc 9.40 mg/dL Invalid Interpretation Code 8.5-10.8 [facility] Chloride molar conc 96 mmol/L Invalid Interpretation Code 100-112 [facility] CO2 molar conc 28 mmol/L Invalid Interpretation Code 23-30 [facility] Creatinine mass conc 0.90 mg/dL Invalid Interpretation Code 0.5-1.5 [facility] GFR/1.73 sq M predicted among non-blacks MDRD vol rate/area (S/P/Bld) 88 mL/min/{1.73_m2} Invalid Interpretation Code [facility] Glucose mass conc 328.0 mg/dL Invalid Interpretation Code 80-117 [facility] Hemoglobin A1c/Hemoglobin.tota l mass fraction (Bld) 10.50 % Invalid Interpretation Code 4.3-6.3 [facility] Potassium molar conc 4.1 mmol/L Invalid Interpretation Code 3.5-5.3 [facility] Protein mass conc 7.60 g/dL Invalid Interpretation Code 6.3-7.9 [facility] Sodium molar conc 140 mmol/L Invalid Interpretation Code 135-148 [facility] Urea nitrogen mass conc 13.0 mg/dL Invalid Interpretation Code 7-25 [facility] Urea nitrogen/Creatinine mass ratio 14 mg/mg Invalid Interpretation Code 6-20 [facility] No Panel Informationon 08-23 1175 Invalid Interpretation Code 243-421 [facility] Otheron 08-23-2018 Albumin mass conc (U) 64.2 Invalid Interpretation Code <17.0 [facility] Albumin/Globulin mass ratio 1.5 {ratio} Invalid Interpretation Code 1.0-2.4 [facility] Cholesterol in VLDL mass conc 79.0 mg/dL Invalid Interpretation Code 0-39 [facility] Cholesterol.total/C holesterol in HDL mass ratio 6 {ratio} Invalid Interpretation Code [facility] Cobalamin (Vitamin B12) mass conc 1175 pg/mL 243-911 [facility] Erythrocyte distribution width Ratio (RBC) 11.70 % Invalid Interpretation Code 11.5-15.5 [facility] MCHC mass conc (RBC) 34.50 g/dL Invalid Interpretation Code 32.0-36.0 [facility] Platelet mean volume Entitic volume (Bld) 9.80 fL Invalid Interpretation Code 8.3-11.5 [facility] 255 [facility] 18.9 Invalid Interpretation Code >5.4 [facility] 255.0 mg/dL Invalid Interpretation Code [facility] 66.0 U/L 0-50 [facility] Urinalysison 08-23-2018 Albumin/Creatinine DL <= 20 mg/L mass ratio (U) 334.4 mg/g Invalid Interpretation Code 0.0-30.0 [facility] Creatinine mass conc (U) 19.20 mg/dL Invalid Interpretation Code Not Estab. mg/dL [facility] Laboratory - Urinalysison Glucose Test strip (U) [Mass/Vol] Negative Invalid Interpretation Code negative [facility] Protein (U) [Mass/Vol] Negative Invalid Interpretation Code negative [facility] Metabolic Panelon 06-12-2018 Glucose mass conc 195.0 mg/dL Invalid Interpretation Code 80-117 [facility] Hemoglobin A1c/Hemoglobin.tota l mass fraction (Bld) 9.50 % Invalid Interpretation Code 4.3-6.3 [facility] Otheron 06-12-2018 Glucose Test strip mass conc (U) Negative negative [facility] 226 [facility] 226.0 mg/dL Invalid Interpretation Code [facility] Urinalysison 06-12-2018 Protein mass conc (U) Negative negative [facility] 02-22-2018 Cholesterol in HDL mass conc 30.0 mg/dL Invalid Interpretation Code 36-100 [facility] Cholesterol mass conc 263.0 mg/dL Invalid Interpretation Code 0-200 [facility] Triglyceride mass conc 797.0 mg/dL Invalid Interpretation Code 30-150 [facility] Metabolic Panelon 02-22-2018 Albumin mass conc 4.50 g/dL Invalid Interpretation Code 3.7-4.5 [facility] ALP enzyme act/vol 83.0 U/L Invalid Interpretation Code 31-155 [facility] ALT enzyme act/vol 49.0 U/L Invalid Interpretation Code 0-50 [facility] Anion gap molar conc 20 mmol/L Invalid Interpretation Code 10-20 [facility] AST enzyme act/vol 22.0 U/L Invalid Interpretation Code 0-40 [facility] Bilirubin mass conc 0.70 mg/dL Invalid Interpretation Code 0.0-1.0 [facility] Calcium mass conc 9.70 mg/dL Invalid Interpretation Code 8.5-10.8 [facility] Chloride molar conc 93 mmol/L Invalid Interpretation Code 100-112 [facility] CO2 molar conc 27 mmol/L Invalid Interpretation Code 23-30 [facility] Creatinine mass conc 0.90 mg/dL Invalid Interpretation Code 0.5-1.5 [facility] GFR/1.73 sq M predicted among non-blacks MDRD vol rate/area (S/P/Bld) 88 mL/min/{1.73_m2} Invalid Interpretation Code [facility] Glucose mass conc 323.0 mg/dL Invalid Interpretation Code 80-117 [facility] Hemoglobin A1c/Hemoglobin.tota l mass fraction (Bld) 10.0 % Invalid Interpretation Code 4.3-6.3 [facility] Potassium molar conc 4.0 mmol/L Invalid Interpretation Code 3.5-5.3 [facility] Protein mass conc 7.70 g/dL Invalid Interpretation Code 6.3-7.9 [facility] Sodium molar conc 136 mmol/L Invalid Interpretation Code 135-148 [facility] Urea nitrogen mass conc 13.0 mg/dL Invalid Interpretation Code 7-25 [facility] Urea nitrogen/Creatinine mass ratio 14 mg/mg Invalid Interpretation Code 6-20 [facility] Otheron 02-22-2018 Albumin mass conc (U) 141.8 Invalid Interpretation Code <17.0 [facility] Albumin/Globulin mass ratio 1.4 {ratio} Invalid Interpretation Code 1.0-2.4 [facility] Cholesterol in VLDL mass conc 159.0 mg/dL Invalid Interpretation Code 0-39 [facility] Cholesterol.total/C holesterol in HDL mass ratio 9 {ratio} Invalid Interpretation Code [facility] 240 [facility] 49.0 U/L 0-50 [facility] 240.0 mg/dL Invalid Interpretation Code [facility] Urinalysison 02-22-2018 Albumin/Creatinine DL <= 20 mg/L mass ratio (U) 179.5 mg/g Invalid Interpretation Code 0.0-30.0 [facility] Creatinine mass conc (U) 79.0 mg/dL Invalid Interpretation Code Not Estab. mg/dL [facility] Laboratory - Chemistry and C hemistry - challengeon 11-25-2017 Bilirubin Ql (U) Negative Invalid Interpretation Code Negative [facility] Ketones Ql (U) Negative Invalid Interpretation Code Negative [facility] Urobilinogen (U) [Mass/Vol] normal Invalid Interpretation Code normal [facility] Laboratory - Hematology and Cell countson 11-25-2017 Hemoglobin Ql (U) Negative Invalid Interpretation Code Negative [facility] Laboratory - Urinalysison Leukocyte esterase Test strip Ql (U) Negative Invalid Interpretation Code Negative [facility] Nitrite Ql (U) Negative Invalid Interpretation Code Negative [facility] Protein Ql (U) Negative Invalid Interpretation Code Negative [facility] Metabolic Panelon 11-25-2017 Glucose mass conc 350.0 mg/dL Invalid Interpretation Code 80-117 [facility] Hemoglobin A1c/Hemoglobin.tota l mass fraction (Bld) 8.60 % Invalid Interpretation Code 4.3-6.3 [facility] Otheron 11-25-2017 Bilirubin Ql (U) Negative Negative [facility] Glucose Test strip mass conc (U) 4+ Invalid Interpretation Code Negative [facility] Ql (U) Negative [facility] Nitrite Ql (U) Negative Negative [facility] pH (U) 5 [pH] Invalid Interpretation Code 4.5-7.8 [facility] Protein Ql (U) Negative Negative [facility] Urobilinogen Test strip mass conc (U) normal normal [facility] 200 [facility] 200.0 mg/dL Invalid Interpretation Code [facility] Urinalysison 11-25-2017 Clarity Nom (U) Clear Invalid Interpretation Code Clear [facility] Color Nom (U) yellow Invalid Interpretation Code yellow [facility] Ketones Ql (U) Negative Negative [facility] Leukocyte esterase Test strip Ql (U) Negative Negative [facility] Specific gravity Relative Density (U) 1.010 Invalid Interpretation Code 1.003-1.029 [facility] 08-24-2017 Cholesterol in HDL mass conc 39.0 mg/dL Invalid Interpretation Code 36-100 [facility] Cholesterol in LDL mass conc 138.0 mg/dL Invalid Interpretation Code 0-130 [facility] Cholesterol mass conc 237.0 mg/dL Invalid Interpretation Code 0-200 [facility] Triglyceride mass conc 301.0 mg/dL Invalid Interpretation Code 30-150 [facility] Metabolic Panelon 08-24-2017 ALT enzyme act/vol 52.0 U/L Invalid Interpretation Code 0-50 [facility] Anion gap molar conc 17 mmol/L Invalid Interpretation Code 10-20 [facility] AST enzyme act/vol 38.0 U/L Invalid Interpretation Code 0-40 [facility] Calcium mass conc 9.50 mg/dL Invalid Interpretation Code 8.5-10.8 [facility] Chloride molar conc 98 mmol/L Invalid Interpretation Code 100-112 [facility] CO2 molar conc 29 mmol/L Invalid Interpretation Code 23-30 [facility] Creatinine mass conc 0.90 mg/dL Invalid Interpretation Code 0.5-1.5 [facility] GFR/1.73 sq M predicted among non-blacks MDRD vol rate/area (S/P/Bld) 88 mL/min/{1.73_m2} Invalid Interpretation Code [facility] Glucose mass conc 146.0 mg/dL Invalid Interpretation Code 80-117 [facility] Hemoglobin A1c/Hemoglobin.tota l mass fraction (Bld) 8.40 % Invalid Interpretation Code 4.3-6.3 [facility] Potassium molar conc 3.8 mmol/L Invalid Interpretation Code 3.5-5.3 [facility] Sodium molar conc 140 mmol/L Invalid Interpretation Code 135-148 [facility] Urea nitrogen mass conc 16.0 mg/dL Invalid Interpretation Code 7-25 [facility] Urea nitrogen/Creatinine mass ratio 18 mg/mg Invalid Interpretation Code 6-20 [facility] Otheron 08-24-2017 Albumin mass conc (U) 160.5 Invalid Interpretation Code <17.0 [facility] Cholesterol in VLDL mass conc 60.0 mg/dL Invalid Interpretation Code 0-39 [facility] Cholesterol.total/C holesterol in HDL mass ratio 6 {ratio} Invalid Interpretation Code reQwip 194 reQwip 194.0 mg/dL Invalid Interpretation Code reQ[facility]ip 52.0 U/L 0-50 [facility] Urinalysison 08-24-2017 Albumin/Creatinine DL <= 20 mg/L mass ratio (U) 105.5 mg/g Invalid Interpretation Code 0.0-30.0 [facility] Creatinine mass conc (U) 152.10 mg/dL Invalid Interpretation Code Not Estab. mg/dL [facility] Laboratory - Urinalysison Protein (U) [Mass/Vol] Negative Invalid Interpretation Code negative re[facility] Metabolic Panelon 08-01-2017 Glucose mass conc 259.0 mg/dL Invalid Interpretation Code 80-117 re[facility] Hemoglobin A1c/Hemoglobin.tota l mass fraction (Bld) 8.30 % Invalid Interpretation Code 4.3-6.3 [facility] Otheron 08-01-2017 Glucose Test strip mass conc (U) trace Invalid Interpretation Code negative reQ[facility]ip pH (U) 6.0 [pH] Invalid Interpretation Code 4.5-7.8 reQ[facility]ip 192 reQwip 192.0 mg/dL Invalid Interpretation Code re[facility]ip Urinalysison 08-01-2017 Protein mass conc (U) Negative negative [facility] Laboratory - Chemistry and C hemistry - challengeon 03-29-2017 Bilirubin Ql (U) Negative Invalid Interpretation Code Negative re[facility] Ketones Ql (U) Negative Invalid Interpretation Code Negative [facility] Urobilinogen (U) [Mass/Vol] normal Invalid Interpretation Code normal [facility] Laboratory - Hematology and Cell countson 03-29-2017 Hemoglobin Ql (U) Negative Invalid Interpretation Code Negative [facility] Laboratory - Urinalysison Leukocyte esterase Test strip Ql (U) Negative Invalid Interpretation Code Negative [facility] Nitrite Ql (U) Negative Invalid Interpretation Code Negative [facility] Protein Ql (U) Negative Invalid Interpretation Code Negative re[facility] Metabolic Panelon 03-29-2017 Glucose mass conc 284.0 mg/dL Invalid Interpretation Code 80-117 [facility] Hemoglobin A1c/Hemoglobin.tota l mass fraction (Bld) 8.0 % Invalid Interpretation Code 4.3-6.3 [facility] Otheron 03-29-2017 Albumin mass conc (U) < 12.0 Invalid Interpretation Code < 17.0 ug/mL [facility] Bilirubin Ql (U) Negative Negative [facility] [place] [employer] Glucose Test strip mass conc (U) 4+ Invalid Interpretation Code Negative [facility] Hemoglobin Ql (U) Negative Negative [facility] rd [place] [employer] Nitrite Ql (U) Negative Negative [facility] [facility] pH (U) 6 [pH] Invalid Interpretation Code 4.5-7.8 [place] [facility] Protein Ql (U) Negative Negative [facility] [employer] Urobilinogen Test strip mass conc (U) normal normal [place] [facility] 183 [facility] 183.0 mg/dL Invalid Interpretation Code [facility] Urinalysison 03-29-2017 Clarity Nom (U) clear Invalid Interpretation Code Clear [place] [facility] Color Nom (U) yellow Invalid Interpretation Code yellow [facility] Creatinine mass conc (U) 14.20 mg/dL Invalid Interpretation Code Not Estab. mg/dL [facility] Ketones Ql (U) Negative Negative [facility] Leukocyte esterase Test strip Ql (U) Negative Negative [facility] Specific gravity Relative Density (U) 1.015 Invalid Interpretation Code 1.003-1.029 [facility] Laboratory - Chemistry and C hemistry - challengeon 11-23-2016 Bilirubin Ql (U) Negative Invalid Interpretation Code Negative [facility] Ketones Ql (U) Negative Invalid Interpretation Code Negative re[facility] Urobilinogen (U) [Mass/Vol] normal Invalid Interpretation Code normal [facility] Laboratory - Urinalysison Leukocyte esterase Test strip Ql (U) Negative Invalid Interpretation Code Negative [facility] Nitrite Ql (U) Negative Invalid Interpretation Code Negative [facility] Metabolic Panelon 11-23-2016 Glucose mass conc 195.0 mg/dL Invalid Interpretation Code 80-117 [facility] Hemoglobin A1c/Hemoglobin.tota l mass fraction (Bld) 6.90 % Invalid Interpretation Code 4.3-6.3 [facility] Otheron 11-23-2016 Bilirubin Ql (U) Negative [facility] Glucose Test strip mass conc (U) 4+ Invalid Interpretation Code Negative [facility] Hemoglobin Ql (U) Trace Invalid Interpretation Code Negative [facility] Nitrite Ql (U) Negative Negative [facility] pH (U) 6 [pH] Invalid Interpretation Code 4.5-7.8 [facility] Protein Ql (U) 1+ Invalid Interpretation Code Negative re[facility] Urobilinogen Test strip mass conc (U) normal normal reQ[facility]ip 151 reQwip 151.0 mg/dL Invalid Interpretation Code reQwip Urinalysison 11-23-2016 Clarity Nom (U) clear Invalid Interpretation Code Clear [facility] Color Nom (U) yellow Invalid Interpretation Code yellow [facility] Ketones Ql (U) Negative Negative [facility] Leukocyte esterase Test strip Ql (U) Negative Negative [facility] Specific gravity Relative Density (U) 1.010 Invalid Interpretation Code 1.003-1.029 [facility] 09-21-2016 Cholesterol in HDL mass conc 32.0 mg/dL Invalid Interpretation Code 36-100 reQ[facility] Cholesterol in LDL mass conc 80.0 mg/dL Invalid Interpretation Code 0-130 re[facility] Cholesterol mass conc 180.0 mg/dL Invalid Interpretation Code 0-200 re[facility] Triglyceride mass conc 340.0 mg/dL Invalid Interpretation Code 30-150 re[facility] Metabolic Panelon 09-21-2016 ALT enzyme act/vol 48.0 U/L Invalid Interpretation Code 0-50 reQ[facility]ip Anion gap molar conc 20 mmol/L Invalid Interpretation Code 10-20 reQ[facility]ip AST enzyme act/vol 22.0 U/L Invalid Interpretation Code 0-40 re[facility] Calcium mass conc 9.70 mg/dL Invalid Interpretation Code 8.5-10.8 [facility] Chloride molar conc 100 mmol/L Invalid Interpretation Code 100-112 re[facility] CO2 molar conc 26 mmol/L Invalid Interpretation Code 23-30 re[facility] Creatinine mass conc 1.10 mg/dL Invalid Interpretation Code 0.5-1.5 re[facility] GFR/1.73 sq M predicted among non-blacks MDRD vol rate/area (S/P/Bld) 70 mL/min/{1.73_m2} Invalid Interpretation Code reQwip Glucose mass conc 158.0 mg/dL Invalid Interpretation Code 80-117 re[facility] Hemoglobin A1c/Hemoglobin.tota l mass fraction (Bld) 7.10 % Invalid Interpretation Code 4.3-6.3 re[facility]ip Potassium molar conc 4.1 mmol/L Invalid Interpretation Code 3.5-5.3 re[facility]ip Sodium molar conc 142 mmol/L Invalid Interpretation Code 135-148 reQwip Urea nitrogen mass conc 18.0 mg/dL Invalid Interpretation Code 7-25 re[facility] Urea nitrogen/Creatinine mass ratio 16 mg/mg Invalid Interpretation Code 6-20 re[facility] Otheron 09-21-2016 Cholesterol in VLDL mass conc 68.0 mg/dL Invalid Interpretation Code 0-39 re[facility] Cholesterol.total/C holesterol in HDL mass ratio 6 {ratio} Invalid Interpretation Code reQwip 157 reQwip 48.0 U/L 0-50 reQ[facility]ip 157.0 mg/dL Invalid Interpretation Code re[facility]ip Laboratory - Chemistry and C hemistry - challengeon 07-27-2016 Bilirubin Ql (U) Negative Invalid Interpretation Code Negative re[facility] Urobilinogen (U) [Mass/Vol] normal Invalid Interpretation Code normal [facility] Laboratory - Hematology and Cell countson 07-27-2016 Hemoglobin Ql (U) Negative Invalid Interpretation Code Negative [facility] Laboratory - Urinalysison Leukocyte esterase Test strip Ql (U) Negative Invalid Interpretation Code Negative re[facility] Nitrite Ql (U) Negative Invalid Interpretation Code Negative [facility] Protein Ql (U) Negative Invalid Interpretation Code Negative re[facility] Metabolic Panelon 07-27-2016 Anion gap molar conc 19 mmol/L Invalid Interpretation Code 10-20 re[facility]ip Calcium mass conc 9.90 mg/dL Invalid Interpretation Code 8.5-10.8 re[facility]ip Chloride molar conc 96 mmol/L Invalid Interpretation Code 100-112 reQ[facility]ip CO2 molar conc 29 mmol/L Invalid Interpretation Code 23-30 re[facility]ip Creatinine mass conc 1.10 mg/dL Invalid Interpretation Code 0.5-1.5 re[facility] GFR/1.73 sq M predicted among non-blacks MDRD vol rate/area (S/P/Bld) 70 mL/min/{1.73_m2} Invalid Interpretation Code reQwip Glucose mass conc 166.0 mg/dL Invalid Interpretation Code 80-117 re[facility]ip Hemoglobin A1c/Hemoglobin.tota l mass fraction (Bld) 7.50 % Invalid Interpretation Code 4.3-6.3 re[facility]ip Potassium molar conc 3.9 mmol/L Invalid Interpretation Code 3.5-5.3 re[facility] Sodium molar conc 140 mmol/L Invalid Interpretation Code 135-148 [facility] Urea nitrogen mass conc 14.0 mg/dL Invalid Interpretation Code 7-25 [facility] Urea nitrogen/Creatinine mass ratio 13 mg/mg Invalid Interpretation Code 6-20 [facility] Otheron 07-27-2016 Albumin mass conc (U) < 12.0 Invalid Interpretation Code < 17.0 ug/mL [facility] Bilirubin Ql (U) Negative Negative [facility] Glucose Test strip mass conc (U) 4+ Invalid Interpretation Code Negative [facility] [facility] Hemoglobin Ql (U) Negative Negative [facility] Nitrite Ql (U) Negative Negative [place] [facility] pH (U) 5 [pH] Invalid Interpretation Code 4.5-7.8 [facility] Protein Ql (U) Negative Negative [place] [facility] Urobilinogen Test strip mass conc (U) normal normal [place] [facility] 169 [facility] 169.0 mg/dL Invalid Interpretation Code [facility] Thyroidon 07-27-2016 T4 mass conc 5.55 ug/dL Invalid Interpretation Code 5.00-12.00 [facility] Thyrotropin Qn 2.71 m[IU]/L Invalid Interpretation Code 0.50-4.00 [facility] Urinalysison 07-27-2016 Clarity Nom (U) clear Invalid Interpretation Code Clear [facility] Color Nom (U) yellow Invalid Interpretation Code yellow [facility] Creatinine mass conc (U) 85.80 mg/dL Invalid Interpretation Code Not Estab. mg/dL [facility] Ketones Ql (U) 1+ Invalid Interpretation Code Negative [facility] Leukocyte esterase Test strip Ql (U) Negative Negative [facility] Specific gravity Relative Density (U) 1.015 Invalid Interpretation Code 1.003-1.029 [facility] Laboratory - Chemistry and C hemistry - challengeon 03-04-2016 Bilirubin Ql (U) Negative Invalid Interpretation Code Negative [facility] Ketones Ql (U) Negative Invalid Interpretation Code Negative [facility] Urobilinogen (U) [Mass/Vol] normal Invalid Interpretation Code normal [facility] Laboratory - Hematology and Cell countson 03-04-2016 Hemoglobin Ql (U) Negative Invalid Interpretation Code Negative [facility] Laboratory - Urinalysison Leukocyte esterase Test strip Ql (U) Negative Invalid Interpretation Code Negative [facility] Nitrite Ql (U) Negative Invalid Interpretation Code Negative [facility] Protein Ql (U) Negative Invalid Interpretation Code Negative [facility] Metabolic Panelon 03-04-2016 Anion gap molar conc 16 mmol/L Invalid Interpretation Code 10-20 re[facility] Calcium mass conc 10.30 mg/dL Invalid Interpretation Code 8.5-10.8 [facility] Chloride molar conc 99 mmol/L Invalid Interpretation Code 100-112 [facility] CO2 molar conc 30 mmol/L Invalid Interpretation Code 23-30 [facility] Creatinine mass conc 1.0 mg/dL Invalid Interpretation Code 0.5-1.5 [facility] GFR/1.73 sq M predicted among non-blacks MDRD vol rate/area (S/P/Bld) 79 mL/min/{1.73_m2} Invalid Interpretation Code [facility] Glucose mass conc 190.0 mg/dL Invalid Interpretation Code 80-117 [facility] Hemoglobin A1c/Hemoglobin.tota l mass fraction (Bld) 6.70 % Invalid Interpretation Code 4.3-6.3 [facility] Potassium molar conc 4.1 mmol/L Invalid Interpretation Code 3.5-5.3 [facility] Sodium molar conc 141 mmol/L Invalid Interpretation Code 135-148 [facility] Urea nitrogen mass conc 12.0 mg/dL Invalid Interpretation Code 7-25 [facility] Urea nitrogen/Creatinine mass ratio 12 mg/mg Invalid Interpretation Code 6-20 [facility] Otheron 03-04-2016 Bilirubin Ql (U) Negative Negative [facility] Glucose Test strip mass conc (U) 4+ Invalid Interpretation Code Negative [facility] Hemoglobin Ql (U) Negative Negative [facility] Nitrite Ql (U) Negative Negative [facility] pH (U) 6 [pH] Invalid Interpretation Code 4.5-7.8 [facility] Protein Ql (U) Negative Negative [facility] Urobilinogen Test strip mass conc (U) normal normal reQwip 146 re[facility]ip 146.0 mg/dL Invalid Interpretation Code [facility] Urinalysison 03-04-2016 Clarity Nom (U) clear Invalid Interpretation Code Clear [facility] Color Nom (U) yellow Invalid Interpretation Code yellow [facility] Ketones Ql (U) Negative Negative [facility] Leukocyte esterase Test strip Ql (U) Negative Negative [facility] Specific gravity Relative Density (U) 1.015 Invalid Interpretation Code 1.003-1.029 [facility] Laboratory - Chemistry and C hemistry - challengeon 11-26-2015 Bilirubin Ql (U) Negative Invalid Interpretation Code Negative [facility] Urobilinogen (U) [Mass/Vol] normal Invalid Interpretation Code normal [facility] Laboratory - Hematology and Cell countson 11-26-2015 Hemoglobin Ql (U) Negative Invalid Interpretation Code Negative [facility] Laboratory - Urinalysison Leukocyte esterase Test strip Ql (U) Negative Invalid Interpretation Code Negative [facility] Nitrite Ql (U) Negative Invalid Interpretation Code Negative [facility] Protein Ql (U) Negative Invalid Interpretation Code Negative [facility] Metabolic Panelon 11-26-2015 Glucose mass conc 220.0 mg/dL Invalid Interpretation Code 80-117 [facility] Hemoglobin A1c/Hemoglobin.tota l mass fraction (Bld) 9.70 % Invalid Interpretation Code 4.3-6.3 [facility] Otheron 11-26-2015 Albumin mass conc (U) < 12.0 Invalid Interpretation Code < 4.0-17.0 [facility] Bilirubin Ql (U) Negative Negative [facility] [place] [employer] Glucose Test strip mass conc (U) 4+ Invalid Interpretation Code Negative [facility] Hemoglobin Ql (U) Negative Negative [facility] rd [place] [employer] Nitrite Ql (U) Negative Negative [place] [facility] pH (U) 6 [pH] Invalid Interpretation Code 4.5-7.8 [facility] Protein Ql (U) Negative Negative [facility] Urobilinogen Test strip mass conc (U) normal normal [place] [facility] 232 [facility] 232.0 mg/dL Invalid Interpretation Code [facility] Thyroidon 11-26-2015 T4 mass conc 5.77 ug/dL Invalid Interpretation Code 5.00-12.00 [facility] Thyrotropin Qn 2.60 m[IU]/L Invalid Interpretation Code 0.50-4.00 [facility] Urinalysison 11-26-2015 Clarity Nom (U) clear Invalid Interpretation Code Clear [facility] Color Nom (U) yellow Invalid Interpretation Code yellow [facility] Creatinine mass conc (U) 66.20 mg/dL Invalid Interpretation Code Not Estab. mg/dL [facility] Ketones Ql (U) 2+ Invalid Interpretation Code Negative [facility] Leukocyte esterase Test strip Ql (U) Negative Negative [facility] Specific gravity Relative Density (U) 1.010 Invalid Interpretation Code 1.003-1.029 [facility] Laboratory - Chemistry and C hemistry - challengeon 11-07-2015 Cortisol [Mass/Vol] ug/dL Invalid Interpretation Code 3.1-22.4 reQ[facility]ip Otheron 11-07-2015 Cortisol mass conc ug/dL 3.1-22.4 [facility] Laboratory - Chemistry and C hemistry - challengeon 10-29-2015 Bilirubin Ql (U) Negative Invalid Interpretation Code Negative [facility] Urobilinogen (U) [Mass/Vol] normal Invalid Interpretation Code normal [facility] Laboratory - Hematology and Cell countson 10-29-2015 Hemoglobin Ql (U) Negative Invalid Interpretation Code Negative [facility] Laboratory - Urinalysison Leukocyte esterase Test strip Ql (U) Negative Invalid Interpretation Code Negative [facility] Nitrite Ql (U) Negative Invalid Interpretation Code Negative [facility] Protein Ql (U) Negative Invalid Interpretation Code Negative [facility] Metabolic Panelon 10-29-2015 Anion gap molar conc 20 mmol/L Invalid Interpretation Code 10-20 [facility] Calcium mass conc 9.70 mg/dL Invalid Interpretation Code 8.5-10.8 [facility] Chloride molar conc 96 mmol/L Invalid Interpretation Code 100-112 [facility] CO2 molar conc 27 mmol/L Invalid Interpretation Code 23-30 [facility] Creatinine mass conc 0.80 mg/dL Invalid Interpretation Code 0.5-1.5 [facility] [employer] GFR/1.73 sq M predicted among non-blacks MDRD vol rate/area (S/P/Bld) 102 mL/min/{1.73_m2} Invalid Interpretation Code [facility] [employer] Glucose mass conc 286.0 mg/dL Invalid Interpretation Code 80-117 [facility] Hemoglobin A1c/Hemoglobin.tota l mass fraction (Bld) 12.60 % Invalid Interpretation Code 4.3-6.3 [facility] Potassium molar conc 3.6 mmol/L Invalid Interpretation Code 3.5-5.3 [facility] Sodium molar conc 139 mmol/L Invalid Interpretation Code 135-148 [facility] Urea nitrogen mass conc 11.0 mg/dL Invalid Interpretation Code 7-25 [facility] Urea nitrogen/Creatinine mass ratio 14 mg/mg Invalid Interpretation Code 6-20 [facility] Otheron 10-29-2015 Albumin mass conc (U) 25.9 Invalid Interpretation Code 0.0-17.0 [facility] Bilirubin Ql (U) Negative Negative [facility] [place] [employer] Glucose Test strip mass conc (U) 4+ Invalid Interpretation Code Negative [facility] Hemoglobin Ql (U) Negative Negative [facility] rd [place] [employer] Nitrite Ql (U) Negative Negative [facility] pH (U) 5 [pH] Invalid Interpretation Code 4.5-7.8 [facility] Protein Ql (U) Negative Negative [facility] Urobilinogen Test strip mass conc (U) normal normal re[facility] 315 re[facility] 315.0 mg/dL Invalid Interpretation Code [facility] Urinalysison 10-29-2015 Albumin/Creatinine DL <= 20 mg/L mass ratio (U) 14.7 mg/g Invalid Interpretation Code 0.0-30.0 [facility] Clarity Nom (U) clear Invalid Interpretation Code Clear [facility] Color Nom (U) yellow Invalid Interpretation Code yellow [facility] Creatinine mass conc (U) 175.60 mg/dL Invalid Interpretation Code Not Estab. mg/dL [facility] Ketones Ql (U) 3+ Invalid Interpretation Code Negative [facility] Leukocyte esterase Test strip Ql (U) Negative Negative [facility] Specific gravity Relative Density (U) 1.020 Invalid Interpretation Code 1.003-1.029 [facility] Laboratory - Chemistry and C hemistry - challengeon 10-03-2015 Bilirubin Ql (U) Negative Invalid Interpretation Code Negative [facility] Urobilinogen (U) [Mass/Vol] normal Invalid Interpretation Code normal [facility] Laboratory - Hematology and Cell countson 10-03-2015 Hemoglobin Ql (U) Negative Invalid Interpretation Code Negative [facility] Laboratory - Urinalysison Leukocyte esterase Test strip Ql (U) Negative Invalid Interpretation Code Negative [facility] Nitrite Ql (U) Negative Invalid Interpretation Code Negative [facility] Protein Ql (U) Negative Invalid Interpretation Code Negative [place] [facility] Metabolic Panelon 10-03-2015 Anion gap molar conc 24 mmol/L Invalid Interpretation Code 10-20 [facility] Calcium mass conc 9.30 mg/dL Invalid Interpretation Code 8.5-10.8 [facility] Chloride molar conc 93 mmol/L Invalid Interpretation Code 100-112 [facility] CO2 molar conc 23 mmol/L Invalid Interpretation Code 23-30 [facility] Creatinine mass conc 0.90 mg/dL Invalid Interpretation Code 0.5-1.5 [facility] GFR/1.73 sq M predicted among non-blacks MDRD vol rate/area (S/P/Bld) 89 mL/min/{1.73_m2} Invalid Interpretation Code [facility] Glucose mass conc 491.0 mg/dL Invalid Interpretation Code 80-117 [facility] Potassium molar conc 4.0 mmol/L Invalid Interpretation Code 3.5-5.3 [facility] Sodium molar conc 136 mmol/L Invalid Interpretation Code 135-148 [facility] Urea nitrogen mass conc 13.0 mg/dL Invalid Interpretation Code 7-25 [facility] Urea nitrogen/Creatinine mass ratio 14 mg/mg Invalid Interpretation Code 6-20 [facility] Otheron 10-03-2015 Bilirubin Ql (U) Negative Negative [facility] C peptide mass conc 5.0 Invalid Interpretation Code 1.1-4.4 [facility] Cortisol mass conc 4.0 ug/dL Invalid Interpretation Code 3.1-22.4 [facility] Glucose Test strip mass conc (U) 4+ Invalid Interpretation Code Negative [facility] Hemoglobin Ql (U) Negative Negative [facility] [employer] Nitrite Ql (U) Negative Negative [place] [facility] pH (U) 5 [pH] Invalid Interpretation Code 4.5-7.8 [facility] Protein Ql (U) Negative Negative [facility] Urobilinogen Test strip mass conc (U) normal normal [place] [facility] See Above Invalid Interpretation Code 0-0 [facility] Urinalysison 10-03-2015 Clarity Nom (U) clear Invalid Interpretation Code Clear [facility] Color Nom (U) yellow Invalid Interpretation Code yellow [facility] Ketones Ql (U) 1+ Invalid Interpretation Code Negative [place] [facility] Leukocyte esterase Test strip Ql (U) Negative Negative [facility] Specific gravity Relative Density (U) 1.005 Invalid Interpretation Code 1.003-1.029 [facility] Hematologyon 08-26-2015 Basophils #/vol (Bld) 0.10 10*3/uL Invalid Interpretation Code 0.0-0.1 [facility] Basophils/100 WBC (Bld) 0.70 % Invalid Interpretation Code 0.0-1.0 [facility] Eosinophils #/vol (Bld) 0.30 10*3/uL Invalid Interpretation Code 0.0-0.5 [facility] Eosinophils/100 WBC (Bld) 3.10 % Invalid Interpretation Code 0.0-7.0 [facility] ESR Velocity (Bld) 31 mm/h Invalid Interpretation Code 0-15 [facility] Hematocrit Volume Fraction (Bld) 39.50 % Invalid Interpretation Code 37.8-51.0 [facility] Hemoglobin mass conc (Bld) 13.10 g/dL Invalid Interpretation Code 12.6-17.0 [facility] Lymphocytes #/vol (Bld) 2.10 10*3/uL Invalid Interpretation Code 0.9-3.1 [facility] Lymphocytes/100 WBC (Bld) 21.80 % Invalid Interpretation Code 15.0-46.0 [facility] MCH Entitic mass (RBC) 31.50 pg Invalid Interpretation Code 25.7-33.8 [facility] MCV Entitic volume (RBC) 94.60 fL Invalid Interpretation Code 82.0-98.4 [facility] Monocytes #/vol (Bld) 0.70 10*3/uL Invalid Interpretation Code 0.3-1.0 [facility] Monocytes/100 WBC (Bld) 7.20 % Invalid Interpretation Code 4.0-12.0 [facility] Neutrophils #/vol (Bld) 6.20 10*3/uL Invalid Interpretation Code 1.8-7.9 [facility] Neutrophils/100 WBC (Bld) 67.20 % Invalid Interpretation Code 43.0-76.0 [facility] Platelets #/vol (Bld) 228.0 10*3/uL Invalid Interpretation Code 150-400 [facility] RBC #/vol (Bld) 4.180 10*6/uL Invalid Interpretation Code 4.34-5.61 [facility] WBC #/vol (Bld) 9.40 10*3/uL Invalid Interpretation Code 3.9-10.3 [facility] Metabolic Panelon 08-26-2015 Protein mass conc g/dL CLASS 0 [facility] Otheron 08-26-2015 Erythrocyte distribution width Ratio (RBC) 12.20 % Invalid Interpretation Code 11.5-15.5 [facility] Immune complex IgE Qn 14 Invalid Interpretation Code 0-100 [facility] MCHC mass conc (RBC) 33.30 g/dL Invalid Interpretation Code 32.0-36.0 [facility] Platelet mean volume Entitic volume (Bld) 8.50 fL Invalid Interpretation Code 7.4-10.4 [facility] <0.10 Invalid Interpretation Code CLASS 0 [facility] COMMENT Invalid Interpretation Code [facility] [facility] 08-05-2015 Cholesterol in HDL mass conc 60.0 mg/dL Invalid Interpretation Code 36-100 [facility] Cholesterol in LDL mass conc 58.0 mg/dL Invalid Interpretation Code 0-130 [facility] Cholesterol mass conc 150.0 mg/dL Invalid Interpretation Code 0-200 [facility] Triglyceride mass conc 160.0 mg/dL Invalid Interpretation Code 30-150 [facility] Metabolic Panelon 08-05-2015 ALT enzyme act/vol 64.0 U/L Invalid Interpretation Code 0-50 [facility] Anion gap molar conc 18 mmol/L Invalid Interpretation Code 10-20 [facility] AST enzyme act/vol 39.0 U/L Invalid Interpretation Code 0-40 [facility] Calcium mass conc 9.70 mg/dL Invalid Interpretation Code 8.5-10.8 [facility] Chloride molar conc 92 mmol/L Invalid Interpretation Code 100-112 [facility] CO2 molar conc 26 mmol/L Invalid Interpretation Code 23-30 [facility] Creatinine mass conc 1.70 mg/dL Invalid Interpretation Code 0.5-1.5 [facility] GFR/1.73 sq M predicted among non-blacks MDRD vol rate/area (S/P/Bld) 43 mL/min/{1.73_m2} Invalid Interpretation Code [facility] Glucose mass conc 199.0 mg/dL Invalid Interpretation Code 80-117 [facility] Hemoglobin A1c/Hemoglobin.tota l mass fraction (Bld) 8.90 % Invalid Interpretation Code 4.3-6.3 [facility] Potassium molar conc 4.3 mmol/L Invalid Interpretation Code 3.5-5.3 [facility] Sodium molar conc 132 mmol/L Invalid Interpretation Code 135-148 [facility] Urea nitrogen mass conc 24.0 mg/dL Invalid Interpretation Code 7-25 [facility] Urea nitrogen/Creatinine mass ratio 14 mg/mg Invalid Interpretation Code 6-20 reQwip Otheron 08-05-2015 Albumin mass conc (U) < 12.0 Invalid Interpretation Code < 4.0-17.0 reQwip Cholesterol in VLDL mass conc 32.0 mg/dL Invalid Interpretation Code 0-39 reQwip Cholesterol.total/C holesterol in HDL mass ratio 3 {ratio} Invalid Interpretation Code reQwip 209 reQwip 209.0 mg/dL Invalid Interpretation Code reQwip 64.0 U/L 0-50 reQwip Urinalysison 08-05-2015 Creatinine mass conc (U) 186.0 mg/dL Invalid Interpretation Code Not Estab. mg/dL reQwip Vital Signs Date Time Vital Sign Value Performing Clinician Facility 12-31-2024 17:48-0400 Body weight 113.4 kg Cinthia [employer] 12-31-2024 17:48-0400 Diastolic blood pressure 80 mm[Hg] [employer] 12-31-2024 17:48-0400 Heart rate 76 /min [employer] 12-31-2024 17:48-0400 Systolic blood pressure 138 mm[Hg] [employer] 12-25-2024 14:52-0400 Body height 177.8 cm Ericka Cylande 12-25-2024 14:52-0400 Body mass index (BMI) [Ratio] 36.16 kg/m2 Ericka Cylande 12-25-2024 14:52-0400 Body surface area Derived from formula 2.38 m2 [facility]ka [facility] 12-25-2024 14:52-0400 Body weight 114.31 kg Ericka [facility] 12-25-2024 14:52-0400 Diastolic blood pressure 68 mm[Hg] Ericka Muniz [facility] [employer] 12-25-2024 14:52-0400 Heart rate 86 /min Ericka Muniz [facility] 12-25-2024 14:52-0400 Systolic blood pressure 138 mm[Hg] Ericka [facility]iz [facility] 08-14-2024 15:21-0500 Body height 180.34 cm Ericka Muniz MD Work Phone: [facility] 08-14-2024 15:21-0500 Body mass index (BMI) [Ratio] 34.5 kg/m2 Ericka Muniz MD Work Phone: [facility] 08-14-2024 15:21-0500 Body weight 112.49 kg Ericka Muniz MD Work Phone: [facility] 08-14-2024 15:21-0500 Diastolic blood pressure 90 mm[Hg] Ericka Muniz MD Work Phone: [facility] 08-14-2024 15:21-0500 Heart rate 103 /min Ericka Muniz MD Work Phone: [facility] 08-14-2024 15:21-0500 Respiratory rate 20 /min Ericka Muniz MD Work Phone: [facility] 08-14-2024 15:21-0500 SaO2% (BldA) [Mass fraction] 97 % Ericka Muniz MD Work Phone: [facility] 08-14-2024 15:21-0500 Systolic blood pressure 137 mm[Hg] Ericka Muniz MD Work Phone: [facility] 04-26-2024 17:02-0400 Body weight 113.85 kg Cinthia [employer] 04-26-2024 17:02-0400 Diastolic blood pressure 80 mm[Hg] [facility]inth[facility] [employer] 04-26-2024 17:02-0400 Heart rate 78 /min Cinthia [employer] 04-26-2024 17:02-0400 Systolic blood pressure 122 mm[Hg] Cinthia [employer] 03-21-2024 14:06-0400 Body height 179.07 cm Ericka Cylande 03-21-2024 14:06-0400 Body mass index (BMI) [Ratio] 34.52 kg/m2 Ericka Cylande 03-21-2024 14:06-0400 Body surface area Derived from formula 2.35 m2 Ericka Cylande 03-21-2024 14:06-0400 Body weight 110.68 kg Ericka Cylande 03-21-2024 14:06-0400 Diastolic blood pressure 76 mm[Hg] Ericka Cylande 03-21-2024 14:06-0400 Heart rate 72 /min Ericka Cylande 03-21-2024 14:06-0400 Systolic blood pressure 136 mm[Hg] Ericka Cylande 12-14-2023 15:17-0400 Body height 180.34 cm RADHA Upton Work Phone: [facility] 12-14-2023 15:17-0400 Body temperature 97.6 [degF] SEARCH LEAD Mark Alexsandra Work Phone: [facility] 12-14-2023 15:17-0400 Body weight 108.3 kg SEARCH LEAD Mark Alexsandra Work Phone: [facility] 12-14-2023 15:17-0400 Diastolic blood pressure 87 mm[Hg] SEARCH LEAD Mark Alexsandra Work Phone: [facility] 12-14-2023 15:17-0400 Heart rate 97 /min SEARCH LEAD Mark Alexsandra Work Phone: [facility] 12-14-2023 15:17-0400 Respiratory rate 18 /min SEARCH LEAD Mark Alexsandra Work Phone: [facility] 12-14-2023 15:17-0400 SaO2% (BldA) [Mass fraction] 95 % SEARCH LEAD Mark Alexsandra Work Phone: [facility] 12-14-2023 15:17-0400 Systolic blood pressure 158 mm[Hg] SEARCH LEAD Mark Alexsandra Work Phone: [facility] 12-03-2023 16:32-0400 Body height 180.34 cm SEARCH LEAD Mark Alexsandra Work Phone: [facility] 12-03-2023 16:32-0400 Body temperature 97.9 [degF] SEARCH LEAD Mark Alexsandra Work Phone: [facility] 12-03-2023 16:32-0400 Body weight 111.25 kg SEARCH LEAD Mark Alexsandra Work Phone: [facility] 12-03-2023 16:32-0400 Diastolic blood pressure 79 mm[Hg] SEARCH LEAD Makr Alexsandra Work Phone: [facility] 12-03-2023 16:32-0400 Heart rate 98 /min SEARCH LEAD Mark Alexsandra Work Phone: [facility] 12-03-2023 16:32-0400 Respiratory rate 17 /min SEARCH LEAD Mark Alexsandra Work Phone: [facility] 12-03-2023 16:32-0400 SaO2% (BldA) [Mass fraction] 95 % SEARCH LEADDouglas Upton Work Phone: [facility] 12-03-2023 16:32-0400 Systolic blood pressure 159 mm[Hg] RADHA Upton Work Phone: [facility] 11-14-2023 14:24-0400 Body height 179.07 cm Ericka Cylande 11-14-2023 14:24-0400 Diastolic blood pressure 84 mm[Hg] Ericka Cylande 11-14-2023 14:24-0400 Systolic blood pressure 118 mm[Hg] Ericka Cylande 11-14-2023 13:14-0400 Body weight 109.77 kg Ericka Cylande 11-14-2023 13:14-0400 Diastolic blood pressure 80 mm[Hg] Ericka Cylande 11-14-2023 13:14-0400 Heart rate 76 /min Ericka Cylande 11-14-2023 13:14-0400 Systolic blood pressure 170 mm[Hg] Ericka Cylande 01-25-2023 16:12-0400 Body height 180.34 cm Ericka Cylande 01-25-2023 16:12-0400 Body mass index (BMI) [Ratio] 33.19 kg/m2 Ericka Cylande 01-25-2023 16:12-0400 Body surface area Derived from formula 2.33 m2 Ericka Cylande 01-25-2023 16:12-0400 Body weight 107.96 kg Ericka Cylande 01-25-2023 16:12-0400 Diastolic blood pressure 72 mm[Hg] Ericka Muniz [facility] 01-25-2023 16:12-0400 Heart rate 90 /min Ericka Muniz [facility] 01-25-2023 16:12-0400 Systolic blood pressure 128 mm[Hg] Ericka Cylande 07-27-2022 16:23-0500 Body height 180.34 cm Edilberto [employer] 07-27-2022 16:23-0500 Body mass index (BMI) [Ratio] 33.33 kg/m2 Edilberto [employer] 07-27-2022 16:23-0500 Body surface area Derived from formula 2.33 m2 Edilberto [employer] 07-27-2022 16:23-0500 Body weight 108.41 kg Edilberto [employer] 07-27-2022 16:23-0500 Body weight 0.1 {percentile} [employer]ilberto [employer] 07-27-2022 16:23-0500 Diastolic blood pressure 68 mm[Hg] [employer]il[employer] 07-27-2022 16:23-0500 Heart rate 100 /min Edilberto [employer] 07-27-2022 16:23-0500 Systolic blood pressure 110 mm[Hg] [employer] 05-27-2022 14:45-0500 Body height 182.88 cm [facility] 05-27-2022 14:45-0500 Body mass index (BMI) [Ratio] 24.4 kg/m2 [facility] 05-27-2022 14:45-0500 Body weight 81.64 kg [facility] 05-27-2022 14:39-0500 Body temperature 97.7 [degF] [facility] 05-27-2022 14:39-0500 Diastolic blood pressure 78 mm[Hg] [facility] 05-27-2022 14:39-0500 Heart rate 90 /min [facility] 05-27-2022 14:39-0500 Respiratory rate 20 /min [facility] 05-27-2022 14:39-0500 Systolic blood pressure 153 mm[Hg] [facility] 05-05-2022 14:50-0400 Body height 182.88 cm [facility] 05-05-2022 14:50-0400 Body mass index (BMI) [Ratio] 24.4 kg/m2 [facility] 05-05-2022 14:50-0400 Body weight 81.64 kg [facility] 05-05-2022 14:36-0400 Body temperature 97.9 [degF] [facility] 05-05-2022 14:36-0400 Diastolic blood pressure 82 mm[Hg] [facility] 05-05-2022 14:36-0400 Heart rate 106 /min [facility] 05-05-2022 14:36-0400 Respiratory rate 18 /min [facility] 05-05-2022 14:36-0400 Systolic blood pressure 153 mm[Hg] [facility] 04-14-2022 14:46-0400 Body height 182.88 cm [facility] 04-14-2022 14:46-0400 Body mass index (BMI) [Ratio] 24.4 kg/m2 [facility] 04-14-2022 14:46-0400 Body weight 81.64 kg [facility] 04-14-2022 14:14-0400 Body temperature 98.6 [degF] [facility] 04-14-2022 14:14-0400 Diastolic blood pressure 98 mm[Hg] [facility] 04-14-2022 14:14-0400 Heart rate 112 /min [facility] 04-14-2022 14:14-0400 Respiratory rate 18 /min [facility] 04-14-2022 14:14-0400 Systolic blood pressure 168 mm[Hg] [facility] 04-01-2022 18:08-0400 Body height 182.88 cm [facility] 04-01-2022 18:08-0400 Body temperature 98.5 [degF] [facility] 04-01-2022 18:08-0400 Body weight 108.6 kg [facility] 04-01-2022 18:08-0400 Diastolic blood pressure 89 mm[Hg] [facility] 04-01-2022 18:08-0400 Heart rate 112 /min [facility] 04-01-2022 18:08-0400 Respiratory rate 20 /min [facility] 04-01-2022 18:08-0400 SaO2% (BldA) [Mass fraction] 97 % [facility] 04-01-2022 18:08-0400 Systolic blood pressure 143 mm[Hg] [facility] 02-17-2022 15:25-0400 Body height 180.34 cm Franky Dyana [facility] 02-17-2022 15:25-0400 Body mass index (BMI) [Ratio] 33.75 kg/m2 [facility] 02-17-2022 15:25-0400 Body surface area Derived from formula 2.35 m2 [employer] [facility] 02-17-2022 15:25-0400 Body surface area Derived from formula 2.34 m2 Franky [facility] 02-17-2022 15:25-0400 Body weight 109.77 kg Franky Vidaland [facility] 02-17-2022 15:25-0400 Diastolic blood pressure 72 mm[Hg] Franky Vidaland [facility] 02-17-2022 15:25-0400 Heart rate 84 /min Franky Vidaland [facility] 02-17-2022 15:25-0400 Systolic blood pressure 126 mm[Hg] Franky Vidaland [facility] 02-17-2022 14:30-0400 Body height 180.34 cm Ericka Cylande 02-17-2022 14:30-0400 Body mass index (BMI) [Ratio] 33.75 kg/m2 Ericka Cylande 02-17-2022 14:30-0400 Body surface area Derived from formula 2.35 m2 Ericka Cylande 02-17-2022 14:30-0400 Body surface area Derived from formula 2.34 m2 Ericka Cylande 02-17-2022 14:30-0400 Body weight 109.77 kg Ericka Cylande 02-17-2022 14:30-0400 Diastolic blood pressure 76 mm[Hg] Ericka Cylande 02-17-2022 14:30-0400 Heart rate 88 /min Ericka Cylande 02-17-2022 14:30-0400 Systolic blood pressure 124 mm[Hg] Ericka Cylande 01-15-2022 13:42-0400 Body height 180.34 cm Edilberto Zamora [facility] 01-15-2022 13:42-0400 Body mass index (BMI) [Ratio] 33.47 kg/m2 Edilberto [employer] 01-15-2022 13:42-0400 Body surface area Derived from formula 2.34 m2 Edilberto [employer] 01-15-2022 13:42-0400 Body weight 108.86 kg Edilberto [employer] 01-15-2022 13:42-0400 Diastolic blood pressure 82 mm[Hg] [employer] 01-15-2022 13:42-0400 Heart rate 84 /min [employer]ilberto [employer] 01-15-2022 13:42-0400 Systolic blood pressure 132 mm[Hg] Edilber[employer] 10-20-2021 16:47-0400 Body height 180.34 cm Franky [employer] 10-20-2021 16:47-0400 Body mass index (BMI) [Ratio] 34.03 kg/m2 Franky [employer] 10-20-2021 16:47-0400 Body surface area Derived from formula 2.35 m2 Franky [employer] 10-20-2021 16:47-0400 Body weight 110.68 kg Franky [employer] 10-20-2021 16:47-0400 Diastolic blood pressure 78 mm[Hg] Franky [employer] 10-20-2021 16:47-0400 Heart rate 88 /min Franky [employer] 10-20-2021 16:47-0400 Systolic blood pressure 122 mm[Hg] Franky [employer] 09-17-2021 16:22-0500 Body height 180.34 cm Franky [employer] 09-17-2021 16:22-0500 Body mass index (BMI) [Ratio] 34.17 kg/m2 Franky [employer] 09-17-2021 16:22-0500 Body surface area Derived from formula 2.36 m2 [employer] 09-17-2021 16:22-0500 Body weight 111.13 kg Franky [employer] 09-17-2021 16:22-0500 Diastolic blood pressure 78 mm[Hg] Franky [employer] 09-17-2021 16:22-0500 Heart rate 84 /min Franky [employer] 09-17-2021 16:22-0500 Systolic blood pressure 142 mm[Hg] Franky [employer] 09-03-2021 14:40-0500 Body height 180.34 cm [employer] 09-03-2021 14:40-0500 Body mass index (BMI) [Ratio] 35.15 kg/m2 [employer] 09-03-2021 14:40-0500 Body surface area Derived from formula 2.39 m2 [employer] 09-03-2021 14:40-0500 Body weight 114.31 kg [employer] 09-03-2021 14:40-0500 Diastolic blood pressure 74 mm[Hg] Edilberto Zamroa re[facility] 09-03-2021 14:40-0500 Heart rate 84 /min Edilberto Zamora [facility] 09-03-2021 14:40-0500 Systolic blood pressure 136 mm[Hg] Edilberto [employer] 03-19-2021 14:33-0400 Body height 181.61 cm Edilberto [employer] 03-19-2021 14:33-0400 Body mass index (BMI) [Ratio] 33.49 kg/m2 Edilberto [employer] 03-19-2021 14:33-0400 Body surface area Derived from formula 2.36 m2 [employer]ilberto [employer] 03-19-2021 14:33-0400 Body weight 110.45 kg Edilberto [employer] 03-19-2021 14:33-0400 Diastolic blood pressure 80 mm[Hg] Edilberto [employer] 03-19-2021 14:33-0400 Heart rate 88 /min Edilberto [employer] 03-19-2021 14:33-0400 Systolic blood pressure 126 mm[Hg] [employer] 12-23-2020 13:35-0400 Body height 181.61 cm Ericka Muniz [facility] 12-23-2020 13:35-0400 Body mass index (BMI) [Ratio] 33.01 kg/m2 Ericka Cylande 12-23-2020 13:35-0400 Body surface area Derived from formula 2.34 m2 Ericka Cylande 12-23-2020 13:35-0400 Body weight 108.86 kg Ericka [facility] 12-23-2020 13:35-0400 Diastolic blood pressure 86 mm[Hg] Ericka Cylande 12-23-2020 13:35-0400 Heart rate 83 /min Ericka Cylande 12-23-2020 13:35-0400 Systolic blood pressure 126 mm[Hg] Ericka Cylande 09-09-2020 15:15-0500 BMI (Body Mass Index) 33.56 kg/m2 [employer] 09-09-2020 15:15-0500 Body weight 110.68 kg Edilberto [employer] 09-09-2020 15:15-0500 BP Diastolic 74 mm[Hg] [employer] 09-09-2020 15:15-0500 BP Systolic 130 mm[Hg] [employer] 09-09-2020 15:15-0500 BSA (Body Surface Area) 2.36 m2 [employer]il[employer]to [employer] 09-09-2020 15:15-0500 Height 181.61 cm Edilberto [employer] 09-09-2020 15:15-0500 Pulse (Heart Rate) 104 /min Edilberto Sohalo [facility] [employer] 04-08-2020 17:01-0400 BMI (Body Mass Index) 33.46 kg/m2 [facility]ilberto Zamora [facility] 04-08-2020 17:01-0400 Body weight 110.37 kg Edilberto Zamora [facility] 04-08-2020 17:01-0400 BP Diastolic 78 mm[Hg] Edilberto Zamora [facility] 04-08-2020 17:01-0400 BP Systolic 120 mm[Hg] Edilberto Zamora [facility] 04-08-2020 17:01-0400 BSA (Body Surface Area) 2.36 m2 Edilberto [employer] [facility] 04-08-2020 17:01-0400 Height 181.61 cm Edilberto [employer] [facility] 04-08-2020 17:01-0400 Pulse (Heart Rate) 78 /min Edilberto Zamora [facility] [place] [facility] 02-21-2020 17:34-0400 BMI (Body Mass Index) 33.83 kg/m2 Ericka [employer]une [employer] 02-21-2020 17:34-0400 Body Temperature 97.8 [degF] [facility] [place] [facility] 02-21-2020 17:34-0400 Body weight 111.59 kg Ericka Dune [facility] 02-21-2020 17:34-0400 BP Diastolic 70 mm[Hg] Ericka Cylande 02-21-2020 17:34-0400 BP Systolic 132 mm[Hg] Ericka Cylande 02-21-2020 17:34-0400 BSA (Body Surface Area) 2.37 m2 Ericka Cylande 02-21-2020 17:34-0400 Height 181.61 cm Ericka Silveira[facility] 02-21-2020 17:34-0400 Pulse (Heart Rate) 88 /min Ericka eng [place] [facility] 12-28-2019 14:30-0400 Body Temperature 98.6 [degF] [facility] [place] 12-28-2019 14:30-0400 BP Diastolic 88 mm[Hg] [facility] [place] 12-28-2019 14:30-0400 BP Systolic 135 mm[Hg] [facility] [place] 12-28-2019 14:30-0400 Pulse (Heart Rate) 80 /min [facility] [place] 12-28-2019 14:30-0400 Pulse Oximetry 93 % [facility] [place] 12-28-2019 14:30-0400 Respiratory Rate 18 /min [place] 12-28-2019 08:19-0400 BMI (Body Mass Index) 33.63 kg/m2 [facility] 12-28-2019 08:19-0400 Body weight 112.49 kg [facility] [place] 12-28-2019 08:19-0400 Height 182.9 cm [facility] [place] 11-26-2019 17:01-0400 BMI (Body Mass Index) 34.24 kg/m2 Ericka [facility] [employer] [facility] 11-26-2019 17:01-0400 Body Temperature 98.5 [degF] Ericka Meraz [place] [facility] 11-26-2019 17:01-0400 Body weight 112.95 kg Ericka Silveirahard [employer] [facility] 11-26-2019 17:01-0400 BP Diastolic 72 mm[Hg] Ericka Silveirahard [employer] [facility] 11-26-2019 17:01-0400 BP Systolic 116 mm[Hg] Ericka Muniz [facility] 11-26-2019 17:01-0400 BSA (Body Surface Area) 2.39 m2 Ericka Muniz [employer] 11-26-2019 17:010400 Height 181.61 cm Ericka Muniz [facility] 11-26-2019 17:01-0400 Pulse (Heart Rate) 100 /min Ericka Monroe [employer] 08-28-2019 15:09-0500 BMI (Body Mass Index) 33.83 kg/m2 Edilberto [employer] 08-28-2019 15:09-0500 Body weight 111.59 kg Edilberto [employer] 08-28-2019 15:09-0500 BP Diastolic 80 mm[Hg] Edilberto [employer] 08-28-2019 15:09-0500 BP Systolic 126 mm[Hg] Edilberto [employer] 08-28-2019 15:09-0500 BSA (Body Surface Area) 2.37 m2 Edilberto [employer] 08-28-2019 15:09-0500 Height 181.61 cm Edilbetro [employer] 08-28-2019 15:09-0500 Pulse (Heart Rate) 80 /min Edilberto [employer] 05-28-2019 18:11-0500 BMI (Body Mass Index) 33.51 kg/m2 Ericka Muniz [employer] 05-28-2019 18:11-0500 Body weight 111.13 kg Ericka Muniz [employer] 05-28-2019 18:11-0500 BP Diastolic 74 mm[Hg] Ericka Muniz [employer] 05-28-2019 18:11-0500 BP Systolic 124 mm[Hg] Ericka Muniz [employer] 05-28-2019 18:11-0500 BSA (Body Surface Area) 2.37 m2 Ericka Muniz [employer] 05-28-2019 18:11-0500 Height 182.12 cm Ericka Muniz [employer] 05-28-2019 18:11-0500 Pulse (Heart Rate) 80 /min Ericka Muniz [employer] 04-17-2019 17:27-0400 BMI (Body Mass Index) 33.96 kg/m2 Edilberto [employer] 04-17-2019 17:27-0400 Body weight 112.95 kg Edilberto [employer] 04-17-2019 17:27-0400 BP Diastolic 86 mm[Hg] Edilberto [employer] 04-17-2019 17:27-0400 BP Systolic 122 mm[Hg] Edil[employer] 04-17-2019 17:27-0400 BSA (Body Surface Area) 2.39 m2 Edilberto [employer] 04-17-2019 17:27-0400 Height 182.37 cm Edilberto [employer] 04-17-2019 17:27-0400 Pulse (Heart Rate) 102 /min Edilberto [employer] 01-25-2019 13:01-0400 BMI (Body Mass Index) 34.3 kg/m2 Ericka Cylande 01-25-2019 13:01-0400 Body weight 114.08 kg Ericka [facility] 01-25-2019 13:01-0400 BP Diastolic 92 mm[Hg] Ericka [facility] 01-25-2019 13:01-0400 BP Systolic 142 mm[Hg] Ericka [employer] 01-25-2019 13:01-0400 BSA (Body Surface Area) 2.4 m2 Ericka Muniz [employer] 01-25-2019 13:01-0400 Height 182.37 cm Ericka Muniz [employer] 01-25-2019 13:01-0400 Pulse (Heart Rate) 88 /min Ericka [facility]ira[facility]ospitality [facility] 12-12-2018 13:49-0400 BMI (Body Mass Index) 34.5 kg/m2 Edilberto [employer] 12-12-2018 13:49-0400 Body weight 114.76 kg Ericka Muniz [employer] 12-12-2018 13:49-0400 BP Diastolic 88 mm[Hg] Edilberto [employer] 12-12-2018 13:49-0400 BP Systolic 148 mm[Hg] Edilberto [employer] 12-12-2018 13:49-0400 BSA (Body Surface Area) 2.41 m2 Edilberto [employer] 12-12-2018 13:49-0400 Height 182.37 cm Edilberto [employer] 12-12-2018 13:49-0400 Pulse (Heart Rate) 90 /min Edilberto [employer] 12-12-2018 13:49-0400 Weight 114.76 kg Edilberto Zamora [employer] 10-02-2018 13:45-0400 BMI (Body Mass Index) 34.38 kg/m2 Edilberto [employer] 10-02-2018 13:45-0400 Body weight 113.4 kg Ericka Muniz [employer] 10-02-2018 13:45-0400 BP Diastolic 90 mm[Hg] Edilberto [employer] 10-02-2018 13:45-0400 BP Systolic 164 mm[Hg] Edilberto [employer] 10-02-2018 13:45-0400 BSA (Body Surface Area) 2.39 m2 Edilberto [employer] 10-02-2018 13:45-0400 Height 181.61 cm Edilberto [employer] 10-02-2018 13:45-0400 Pulse (Heart Rate) 90 /min Edilberto SilveiraHospitality Leaders 10-02-2018 13:45-0400 Weight 113.4 kg Edilberto [employer] 08-30-2018 13:14-0500 BMI (Body Mass Index) 33.74 kg/m2 Edilberto [employer] 08-30-2018 13:14-0500 Body weight 111.27 kg Ericka Muniz [employer] 08-30-2018 13:14-0500 BP Diastolic 88 mm[Hg] Edilberto [employer] 08-30-2018 13:14-0500 BP Systolic 142 mm[Hg] Edilberto [employer] 08-30-2018 13:14-0500 BSA (Body Surface Area) 2.37 m2 Edilberto Zamora [employer] 08-30-2018 13:14-0500 Height 181.61 cm Edilberto [employer] 08-30-2018 13:14-0500 Pulse (Heart Rate) 84 /min Edilberto Sil[facility]ira[facility]ospitality [facility] 08-30-2018 13:14-0500 Weight 111.27 kg Edilberto [employer] 06-19-2018 13:18-0500 Body weight 112.04 kg Ericka Muniz [employer] 06-19-2018 13:18-0500 BP Diastolic 80 mm[Hg] Edilberto [employer] 06-19-2018 13:18-0500 BP Systolic 138 mm[Hg] Edilberto [employer] 06-19-2018 13:18-0500 Pulse (Heart Rate) 70 /min Edilberto Sil[facility]iraHospitality [facility] 06-19-2018 13:18-0500 Weight 112.04 kg Edilberto [employer] 03-20-2018 14:25-0400 BMI (Body Mass Index) 32.28 kg/m2 Edilberto [employer] 03-20-2018 14:25-0400 Body weight 107.96 kg Ericka Muniz [employer] 03-20-2018 14:25-0400 BP Diastolic 80 mm[Hg] Edilberto [employer] 03-20-2018 14:25-0400 BP Systolic 142 mm[Hg] [facility]to [facility] 03-20-2018 14:25-0400 BSA (Body Surface Area) 2.34 m2 [facility]to [facility] 03-20-2018 14:25-0400 Height 182.88 cm [facility]to [facility] 03-20-2018 14:25-0400 Pulse (Heart Rate) 78 /min Edilberto Sil[facility]iraHospitality Leaders 03-20-2018 14:25-0400 Weight 107.96 kg Edilberto Zamora [employer] 03-01-2018 13:34-0400 BMI (Body Mass Index) 32.55 kg/m2 Edilberto Zamora [employer] 03-01-2018 13:34-0400 Body weight 108.86 kg Ericka [facility] 03-01-2018 13:34-0400 BP Diastolic 104 mm[Hg] Edilberto Zamora [facility] 03-01-2018 13:34-0400 BP Systolic 138 mm[Hg] Edilberto Zamora [facility] 03-01-2018 13:34-0400 BSA (Body Surface Area) 2.35 m2 Edilberto Zamora [facility] 03-01-2018 13:34-0400 Height 182.88 cm Edilberto Zamora [employer] 03-01-2018 13:34-0400 Pulse (Heart Rate) 104 /min Edilberto SilveiraHospitality Leaders 03-01-2018 13:34-0400 Weight 108.86 kg Edilberto Zamora [employer] 12-13-2017 13:50-0400 BMI (Body Mass Index) 33.36 kg/m2 Edilberto Zamora [facility] 12-13-2017 13:50-0400 Body weight 111.59 kg Ericka [facility] 12-13-2017 13:50-0400 BP Diastolic 78 mm[Hg] Edilberto [employer] 12-13-2017 13:50-0400 BP Systolic 144 mm[Hg] Edilberto [employer] 12-13-2017 13:50-0400 BSA (Body Surface Area) 2.38 m2 Edilberto [employer] 12-13-2017 13:50-0400 Height 182.88 cm Edilberto [employer] 12-13-2017 13:50-0400 Pulse (Heart Rate) 76 /min Edilberto [employer] [facility] 12-13-2017 13:50-0400 Weight 111.59 kg [facility]to [facility] [employer] 09-01-2017 13:48-0500 BMI (Body Mass Index) 33.09 kg/m2 [facility]to [employer] [employer] 09-01-2017 13:48-0500 Body weight 110.68 kg Ericka Muniz [employer] 09-01-2017 13:48-0500 BP Diastolic 92 mm[Hg] Edilberto [employer] 09-01-2017 13:48-0500 BP Systolic 128 mm[Hg] Edilberto [employer] 09-01-2017 13:48-0500 BSA (Body Surface Area) 2.37 m2 Edilberto [facility] 09-01-2017 13:48-0500 Height 182.88 cm Edilberto Zamora re[employer]wip 09-01-2017 13:48-0500 Pulse (Heart Rate) 80 /min Edilberto Silveirahard Francisco [employer] 09-01-2017 13:48-0500 Weight 110.68 kg Edilberto Zamora re[employer]wip 08-05-2017 13:30-0500 BMI (Body Mass Index) 33.63 kg/m2 Edilberto Zamora [employer] 08-05-2017 13:30-0500 Body weight 112.49 kg Ericka FrazierNoemalife 08-05-2017 13:30-0500 BP Diastolic 80 mm[Hg] Edilberto Zamora re[employer] 08-05-2017 13:30-0500 BP Systolic 140 mm[Hg] Edilberto JaraEnvisage Technologies 08-05-2017 13:30-0500 BSA (Body Surface Area) 2.39 m2 Edilberto [employer] 08-05-2017 13:30-0500 Height 182.88 cm Edilberto Zamora re[employer] 08-05-2017 13:30-0500 Pulse (Heart Rate) 84 /min Edilberto SilveiraHospitality Leaders 08-05-2017 13:30-0500 Weight 112.49 kg Edilberto JaraEnvisage Technologies 06-27-2017 17:18-0500 BMI (Body Mass Index) 33.63 kg/m2 Edilberto [employer] 06-27-2017 17:18-0500 Body weight 112.49 kg Ericka Muniz [employer] 06-27-2017 17:18-0500 BP Diastolic 90 mm[Hg] Edilberto JaraEn[employer]age [employer] 06-27-2017 17:18-0500 BP Systolic 140 mm[Hg] Edilberto [employer] 06-27-2017 17:18-0500 BSA (Body Surface Area) 2.39 m2 Edilberto [employer] 06-27-2017 17:18-0500 Height 182.88 cm Edilberto [employer] 06-27-2017 17:18-0500 Pulse (Heart Rate) 80 /min Edilberto [employer] 06-27-2017 17:18-0500 Weight 112.49 kg Edilberto [employer] 04-05-2017 13:30-0400 Body weight 106.6 kg Ericka Muniz [employer] 04-05-2017 13:30-0400 BP Diastolic 80 mm[Hg] Edilberto [employer] 04-05-2017 13:30-0400 BP Systolic 118 mm[Hg] Edilberto [employer] 04-05-2017 13:30-0400 Pulse (Heart Rate) 70 /min Edilberto [employer] 04-05-2017 13:30-0400 Weight 106.6 kg Edilberto [employer] 03-01-2017 12:25-0400 BMI (Body Mass Index) 32.01 kg/m2 Edilberto [employer] 03-01-2017 12:25-0400 Body weight 107.05 kg Ericka SilveiraNextCode Health 03-01-2017 12:25-0400 BP Diastolic 80 mm[Hg] Edilberto Zamora [employer] 03-01-2017 12:25-0400 BP Systolic 116 mm[Hg] Edilberto JaraEnvisage [employer] 03-01-2017 12:25-0400 BSA (Body Surface Area) 2.33 m2 Edilberto [employer] 03-01-2017 12:25-0400 Height 182.88 cm Edilberto [employer] 03-01-2017 12:25-0400 Pulse (Heart Rate) 84 /min Edilberto Zamora [facility] [employer] 03-01-2017 12:25-0400 Weight 107.05 kg Edilberto JaraEnvisage [employer] 02-09-2017 13:42-0400 BMI (Body Mass Index) 32.01 kg/m2 Edilberto [employer] 02-09-2017 13:42-0400 Body weight 107.05 kg Ericka SilveiraNextCode Health 02-09-2017 13:42-0400 BP Diastolic 80 mm[Hg] Edilberto Zamora [employer] 02-09-2017 13:42-0400 BP Systolic 130 mm[Hg] Edilberto [employer] 02-09-2017 13:42-0400 BSA (Body Surface Area) 2.33 m2 [employer] 02-09-2017 13:42-0400 Height 182.88 cm Edilberto ZamoraEnvisage Technologies 02-09-2017 13:42-0400 Pulse (Heart Rate) 80 /min Edilberto SilveiraHospitality Leaders 02-09-2017 13:42-0400 Weight 107.05 kg Edilberto JaraEnvisage [employer] 11-30-2016 13:21-0400 BMI (Body Mass Index) 32.35 kg/m2 Edilberto [employer] 11-30-2016 13:21-0400 Body weight 108.18 kg Ericka Muniz [employer] 11-30-2016 13:21-0400 BP Diastolic 76 mm[Hg] Edilberto [employer] 11-30-2016 13:21-0400 BP Systolic 128 mm[Hg] Edilberto [employer] 11-30-2016 13:21-0400 BSA (Body Surface Area) 2.34 m2 Edilberto [employer] 11-30-2016 13:21-0400 Height 182.88 cm Edilberto [employer] 11-30-2016 13:21-0400 Pulse (Heart Rate) 84 /min Edilberto SilveiraHospitality Leaders 11-30-2016 13:21-0400 Weight 108.18 kg Edilberto [employer] 09-28-2016 11:37-0400 BMI (Body Mass Index) 32.75 kg/m2 Edilberto [employer] 09-28-2016 11:37-0400 Body weight 109.54 kg Ericka Muniz re[employer] 09-28-2016 11:37-0400 BP Diastolic 92 mm[Hg] Edilberto SilveiraNextCode Health 09-28-2016 11:37-0400 BP Systolic 142 mm[Hg] Edilberto SilveiraNextCode Health 09-28-2016 11:37-0400 BSA (Body Surface Area) 2.36 m2 Edilberto SilveiraNextCode Health 09-28-2016 11:37-0400 Height 182.88 cm Edilberto Zamora Monroe[facility] 09-28-2016 11:37-0400 Pulse (Heart Rate) 100 /min Edilberto SilveiraHospitality Leaders 09-28-2016 11:37-0400 Weight 109.54 kg Edilberto Zamora [employer] 08-03-2016 13:51-0500 BMI (Body Mass Index) 32.96 kg/m2 Edilberto Zamora [facility] 08-03-2016 13:51-0500 Body weight 110.22 kg Ericka SilveiraNextCode Health 08-03-2016 13:51-0500 BP Diastolic 96 mm[Hg] Edilberto Zamora [facility] 08-03-2016 13:51-0500 BP Systolic 152 mm[Hg] Edilberto Zamora [facility] 08-03-2016 13:51-0500 BSA (Body Surface Area) 2.37 m2 Edilberto [employer] 08-03-2016 13:51-0500 Height 182.88 cm Edilberto Zamora re[employer] 08-03-2016 13:51-0500 Pulse (Heart Rate) 108 /min Edilberto [employer] 08-03-2016 13:51-0500 Weight 110.22 kg Edilberto FrazierNoemalife 03-31-2016 11:23-0400 BMI (Body Mass Index) 32.64 kg/m2 Edilberto Zamora [employer] 03-31-2016 11:23-0400 Body weight 106.14 kg Ericka Muniz re[employer] 03-31-2016 11:23-0400 BP Diastolic 76 mm[Hg] Edilberto JaraEnvisage Technologies 03-31-2016 11:23-0400 BP Systolic 124 mm[Hg] Edilberto JaraEn[employer]age [employer] 03-31-2016 11:23-0400 BSA (Body Surface Area) 2.31 m2 Edilberto [employer] 03-31-2016 11:23-0400 Height 180.34 cm Edilberto [employer] 03-31-2016 11:23-0400 Pulse (Heart Rate) 80 /min Edilberto Monroe [employer] 03-31-2016 11:23-0400 Weight 106.14 kg Edilberto Zamora [employer] 03-30-2016 13:44-0400 BMI (Body Mass Index) 32.85 kg/m2 Edilberto Zamora [employer] 03-30-2016 13:44-0400 Body weight 106.82 kg Ericka Muniz [employer] 03-30-2016 13:44-0400 BP Diastolic 70 mm[Hg] Edilberto [employer] 03-30-2016 13:44-0400 BP Systolic 136 mm[Hg] Edilberto SilveiraNextCode Health 03-30-2016 13:44-0400 BSA (Body Surface Area) 2.31 m2 Edilberto Zamora [facility] 03-30-2016 13:44-0400 Height 180.34 cm Edilberto Zamora [facility] 03-30-2016 13:44-0400 Pulse (Heart Rate) 96 /min Edilberto Monroe [employer] 03-30-2016 13:44-0400 Weight 106.82 kg Edilberto Zamora [employer] 02-23-2016 14:54-0400 BMI (Body Mass Index) 32.71 kg/m2 Edilberto Zamora [employer] 02-23-2016 14:54-0400 Body weight 106.37 kg Ericka SilveiraNextCode Health 02-23-2016 14:54-0400 BP Diastolic 90 mm[Hg] Edilberto Zamora [employer] 02-23-2016 14:54-0400 BP Systolic 132 mm[Hg] Edilberto Zamora [employer] 02-23-2016 14:54-0400 BSA (Body Surface Area) 2.31 m2 Edilberto Zamora [facility] 02-23-2016 14:54-0400 Height 180.34 cm Edilberto Zamora [employer] 02-23-2016 14:54-0400 Pulse (Heart Rate) 88 /min Edilberto Monroe [employer] 02-23-2016 14:54-0400 Weight 106.37 kg Edilberto Zamora [employer] 12-23-2015 13:34-0400 BMI (Body Mass Index) 33.89 kg/m2 Edilberto JaraEn[employer]age [employer] 12-23-2015 13:34-0400 Body weight 110.22 kg Ericka Muniz [facility] 12-23-2015 13:34-0400 BP Diastolic 76 mm[Hg] Edilberto JaraEnvisage [employer] 12-23-2015 13:34-0400 BP Systolic 110 mm[Hg] Edilberto [employer] 12-23-2015 13:34-0400 BSA (Body Surface Area) 2.35 m2 Edilberto [employer] 12-23-2015 13:34-0400 Height 180.34 cm Edilberto [employer] 12-23-2015 13:34-0400 Pulse (Heart Rate) 100 /min Edilberto Parle [employer] 12-23-2015 13:34-0400 Weight 110.22 kg Edilberto [employer] 12-09-2015 13:00-0400 BMI (Body Mass Index) 33.47 kg/m2 Edilberto [employer] 12-09-2015 13:00-0400 Body weight 108.86 kg Ericka Muniz [employer] 12-09-2015 13:00-0400 BP Diastolic 74 mm[Hg] Edilberto [employer] 12-09-2015 13:00-0400 BP Systolic 114 mm[Hg] Edilberto [employer] 12-09-2015 13:00-0400 BSA (Body Surface Area) 2.34 m2 [employer] 12-09-2015 13:000400 Height 180.34 cm Edilberto Zamora [facility] 12-09-2015 13:00-0400 Pulse (Heart Rate) 100 /min Edilberto Tijerina [employer] 12-09-2015 13:000400 Weight 108.86 kg Edilberto Zamora [employer] 12-03-2015 12:29-0400 BMI (Body Mass Index) 34.31 kg/m2 Edilberto Zamora [employer] 12-03-2015 12:29-0400 Body weight 111.59 kg Ericka SilveiraNextCode Health 12-03-2015 12:29-0400 BP Diastolic 66 mm[Hg] Edilberto Zamora [employer] 12-03-2015 12:29-0400 BP Systolic 114 mm[Hg] Edilberto Zamora [employer] 12-03-2015 12:29-0400 BSA (Body Surface Area) 2.36 m2 Edilberto Zamora [employer] 12-03-2015 12:290400 Height 180.34 cm Edilberto Zamora [employer] 12-03-2015 12:29-0400 Pulse (Heart Rate) 100 /min Edilberto Tijerina [employer] 12-03-2015 12:29-0400 Weight 111.59 kg Edilberto Zamora [employer] 11-18-2015 13:52-0400 BMI (Body Mass Index) 34.07 kg/m2 Edilberto [employer] 11-18-2015 13:52-0400 Body weight 110.82 kg Ericka Muniz [employer] 11-18-2015 13:52-0400 BP Diastolic 82 mm[Hg] Edilberto [employer] 11-18-2015 13:52-0400 BP Systolic 124 mm[Hg] Edilberto [employer] 11-18-2015 13:52-0400 BSA (Body Surface Area) 2.36 m2 Edilberto [employer] 11-18-2015 13:52-0400 Height 180.34 cm [employer] 11-18-2015 13:52-0400 Pulse (Heart Rate) 100 /min Edilberto Izzy Money velasquez [employer] 11-18-2015 13:52-0400 Weight 110.82 kg Edilberto [employer] 11-05-2015 14:53-0400 BMI (Body Mass Index) 34.31 kg/m2 Edilberto [employer] 11-05-2015 14:53-0400 Body weight 111.59 kg Ericka Muniz [employer] 11-05-2015 14:53-0400 BP Diastolic 70 mm[Hg] [employer] 11-05-2015 14:53-0400 BP Systolic 140 mm[Hg] [employer] 11-05-2015 14:53-0400 BSA (Body Surface Area) 2.36 m2 [employer] 11-05-2015 14:53-0400 Height 180.34 cm [employer] 11-05-2015 14:53-0400 Pulse (Heart Rate) 120 /min Edilberto Silveirahard Francisco [employer] 11-05-2015 14:53-0400 Weight 111.59 kg Edilberto JaraEnvisage Technologies 10-13-2015 13:24-0400 BMI (Body Mass Index) 34.38 kg/m2 Edilberto [employer]En[employer] 10-13-2015 13:24-0400 Body weight 111.81 kg Ericka Muniz [employer] 10-13-2015 13:24-0400 BP Diastolic 84 mm[Hg] Edilberto [employer] 10-13-2015 13:24-0400 BP Systolic 144 mm[Hg] Edilberto [employer] 10-13-2015 13:24-0400 BSA (Body Surface Area) 2.37 m2 Edilberto [employer] 10-13-2015 13:24-0400 Height 180.34 cm Edilberto [employer] 10-13-2015 13:24-0400 Pulse (Heart Rate) 108 /min Edilberto SilveiraHospitality Leaders 10-13-2015 13:24-0400 Weight 111.81 kg Edilberto [employer] 10-03-2015 11:47-0400 BMI (Body Mass Index) 34.38 kg/m2 Edilberto [employer] 10-03-2015 11:47-0400 Body weight 111.81 kg Ericka Muniz [employer] 10-03-2015 11:47-0400 BP Diastolic 80 mm[Hg] Edilberto [employer] 10-03-2015 11:47-0400 BP Systolic 106 mm[Hg] Edilberto Monroe [employer] 10-03-2015 11:47-0400 BSA (Body Surface Area) 2.37 m2 Edilberto SilveiraNextCode Health 10-03-2015 11:47-0400 Height 180.34 cm Edilberto SilveiraNextCode Health 10-03-2015 11:47-0400 Pulse (Heart Rate) 116 /min Edilberto SilveiraHospitality Leaders 10-03-2015 11:47-0400 Weight 111.81 kg Edilberto SilveiraNextCode Health 09-29-2015 12:48-0400 BMI (Body Mass Index) 35.15 kg/m2 Edilberto SilveiraNextCode Health 09-29-2015 12:48-0400 Body weight 114.31 kg Ericka SilveiraNextCode Health 09-29-2015 12:48-0400 BP Diastolic 68 mm[Hg] dEilberto SilveiraNextCode Health 09-29-2015 12:48-0400 BP Systolic 108 mm[Hg] Edilberto SilveiraNextCode Health 09-29-2015 12:48-0400 BSA (Body Surface Area) 2.39 m2 Edilberto Zamora [facility] 09-29-2015 12:48-0400 Height 180.34 cm Edilberto Zamora [facility] 09-29-2015 12:48-0400 Pulse (Heart Rate) 76 /min Edilberto SilveiraHospitality Leaders 09-29-2015 12:48-0400 Weight 114.31 kg Edilberto [employer] 08-26-2015 15:06-0500 Pulse Oximetry 97 % Edilberto [employer] 08-26-2015 15:06-0500 SaO2% (BldA) [Mass fraction] 97 % Ericka Muniz [employer] 08-26-2015 14:14-0500 BMI (Body Mass Index) 36.26 kg/m2 Edilberto [employer] 08-26-2015 14:14-0500 Body Temperature 98.1 [degF] Edilberto [employer] 08-26-2015 14:14-0500 Body weight 117.94 kg Ericka Muniz [employer] 08-26-2015 14:14-0500 BP Diastolic 64 mm[Hg] Edilberto [employer] 08-26-2015 14:14-0500 BP Systolic 100 mm[Hg] Edilberto [employer] 08-26-2015 14:14-0500 BSA (Body Surface Area) 2.43 m2 Edilberto [employer] 08-26-2015 14:14-0500 Height 180.34 cm Edilberto [employer] 08-26-2015 14:14-0500 Pulse (Heart Rate) 112 /min EdilbertoCoAdna [employer] 08-26-2015 14:14-0500 Respiratory Rate 20 /min EdilbertoCaLivingBenefits 08-26-2015 14:14-0500 Weight 117.94 kg EdilbertoB[employer] 08-12-2015 13:36-0500 BMI (Body Mass Index) 36.26 kg/m2 Edilberto JaraEnvisage [employer] 08-12-2015 13:36-0500 Body weight 117.94 kg Ericka Muniz [employer] 08-12-2015 13:36-0500 BP Diastolic 70 mm[Hg] Edilberto [employer]En[employer] 08-12-2015 13:36-0500 BP Systolic 104 mm[Hg] Edilberto [employer] 08-12-2015 13:36-0500 BSA (Body Surface Area) 2.43 m2 Edilberto [employer] 08-12-2015 13:36-0500 Height 180.34 cm Edilberto [employer] 08-12-2015 13:36-0500 Pulse (Heart Rate) 76 /min Edilberto Izzy Money velasquez [employer] 08-12-2015 13:36-0500 Weight 117.94 kg Edilberto [employer] 07-24-2015 13:00-0500 BMI (Body Mass Index) 36.4 kg/m2 Edilberto [employer] 07-24-2015 13:00-0500 Body Temperature 97.6 [degF] Edilberto [employer] 07-24-2015 13:00-0500 Body weight 118.39 kg Ericka Muniz [employer] 07-24-2015 13:00-0500 BP Diastolic 80 mm[Hg] Edilberto [employer] 07-24-2015 13:00-0500 BP Systolic 144 mm[Hg] Edilberto Zamora [facility] 07-24-2015 13:00-0500 BSA (Body Surface Area) 2.44 m2 Edilberto SilveiraNextCode Health 07-24-2015 13:00-0500 Height 180.34 cm Edilberto Zamora [facility] 07-24-2015 13:00-0500 Pulse (Heart Rate) 120 /min Edilberto SilveiraHospitality Leaders 07-24-2015 13:00-0500 Weight 118.39 kg Edilberto JaraEnvisage Technologies 06-03-2015 13:38-0500 BMI (Body Mass Index) 35.98 kg/m2 Edilberto Zamora [employer] 06-03-2015 13:38-0500 Body Temperature 98.8 [degF] Edilberto Zamora [employer] 06-03-2015 13:38-0500 Body weight 117.03 kg Ericka SilveiraNextCode Health 06-03-2015 13:38-0500 BP Diastolic 90 mm[Hg] Edilberto Zamora [employer] 06-03-2015 13:38-0500 BP Systolic 144 mm[Hg] Edilberto Zamora [employer] 06-03-2015 13:38-0500 BSA (Body Surface Area) 2.42 m2 Edilberto [employer] 06-03-2015 13:38-0500 Height 180.34 cm Edilberto Zamora [employer] 06-03-2015 13:38-0500 Pulse (Heart Rate) 84 /min Edilberto SilveiraHospitality Leaders 06-03-2015 13:38-0500 Weight 117.03 kg Edilberto Zamora [facility] Encounters Encounter Date Encounter Type Care Provider Facility Start: 12-31-2024 Office outpatient vi sit 25 minutes Cinthia Magana Other [facility] Start: 12-31-2024 Cinthia Lilly m Other [facility] Start: 12-25-2024 Office outpatient vi sit 25 minutes Ercika Muniz Other [facility] Start: 12-25-2024 Ericka Muniz Other [facility] Start: 12-20-2024 End: 12-20-2024 ambulatory Bo Pearce DO Facility:[facility] Start: 08-14-2024 End: 08-14-2024 ambulatory Ericka Muniz MD Work Phone: [facility] Work Phone: Start: 08-14-2024 End: 08-14-2024 Patient encounter procedure Ericka Muniz MD Work Phone: [facility] Work Phone: Start: 07-19-2024 Non-patient / Non-visit Ericka allen MD Work Phone: [facility] Work Phone: Start: 07-19-2024 End: 07-19-2024 Patient encounter procedure Ericka Muniz MD Work Phone: [facility] Work Phone: Start: 07-19-2024 End: 07-19-2024 ambulatory Ericka Muniz MD Work Phone: [facility] Work Phone: Start: 06-21-2024 End: 06-21-2024 ambulatory Ayanna Brooks SEARCH LEAD-DEPUTY SHERIFF/INVESTIGATOR Facility:[facility] Start: 06-12-2024 End: 06-12-2024 ambulatory Ayanna Brooks SEARCH LEAD-DEPUTY SHERIFF/INVESTIGATOR Facility:[facility] Start: 04-26-2024 Office outpatient vi sit 25 minutes Cinthia Magana Other [facility] Start: 03-21-2024 Ericka Muniz Other [facility] Start: 03-21-2024 Office outpatient vi sit 25 minutes Ericka Muniz Other [facility] Start: 01-11-2024 End: 01-11-2024 ambulatory Ayanna Brooks SEARCH LEAD-DEPUTY SHERIFF/INVESTIGATOR Facility:[facility] Start: 12-14-2023 End: 12-14-2023 Emergency department patient visit RADHA Camposmond Work Phone: [facility]Emergency Room Work Phone: Start: 12-03-2023 End: 12-03-2023 Emergency department patient visit SEARCH LEAD Mark Alexsandra Work Phone: [facility]Emergency [facility] Work Phone: Start: 11-14-2023 End: 11-14-2023 Office outpatient visit 25 minutes Ericka Muniz Other [facility] Start: 11-14-2023 Ericka Muniz Other [facility] Start: 11-14-2023 Foot examination performed Ericka Muniz [facility] Start: 08-09-2023 Telephone encounter Shay lal DO Work Phone: [facility] Start: 06-16-2023 End: 06-18-2023 Pre-admission assessment NAYLA OAKES [facility] Start: 01-25-2023 Office outpatient vi sit 15 minutes Ericka Muniz Other [facility] Start: 01-25-2023 Edilberto schmitt Other [facility] Start: 01-25-2023 Foot examination performed Ericka Muniz [employer] Start: 01-25-2023 Office outpatient vi sit 25 minutes Edilberto Zamora Other [facility] Start: 10-27-2022 ambulatory NAYLA OAKES Faci lity:[facility]1 Start: 07-28-2022 End: 07-29-2022 ambulatory [place]LA Ontiveros [facility] [place] Start: 07-27-2022 Lab Edilberto Jaimes keshia Other [facility] Start: 07-27-2022 Edilberto Jaimes keshia Other [facility] Start: 07-27-2022 Office Services Ericka Muniz Other [facility] Start: 07-27-2022 Foot examination performed Edilberto Zamora [employer] Start: 07-27-2022 End: 07-27-2022 Office outpatient visit 25 minutes Edilberto Zamora Other [facility] Start: 06-23-2022 End: 06-24-2022 ambulatory [place]LA Ontiveros [facility] [place] Start: 05-27-2022 End: 05-27-2022 ambulatory NON STAFF [facility] Work Phone: Start: 05-27-2022 End: 05-27-2022 Discharged Recurring [facility] [place] Start: 05-26-2022 End: 05-26-2022 ambulatory NON STAFF [facility] Work Phone: Start: 05-26-2022 End: 05-26-2022 Patient encounter procedure [facility] [address] Start: 05-05-2022 Registered Recurring [facility] [place] Start: 04-22-2022 End: 04-22-2022 ambulatory NON STAFF [facility] Work Phone: Start: 04-22-2022 End: 04-22-2022 Patient encounter procedure [facility] [address] [place] Start: 04-21-2022 End: 04-21-2022 ambulatory NON STAFF [facility] Work Phone: Start: 04-21-2022 End: 04-21-2022 Patient encounter procedure [facility] [place] Start: 04-14-2022 Registered Recurring [facility] Start: 04-01-2022 End: 04-01-2022 Emergency department patient visit [facility]Emer[facility] Start: 04-01-2022 Office outpatient ne w 20 minutes Franky P Dyana Other [facility] Start: 04-01-2022 Office outpatient vi sit 15 minutes Franky P Dyana Other [facility] Start: 03-16-2022 Office outpatient vi sit 15 minutes Franky P Dyana Other [facility] Start: 02-17-2022 Office outpatient vi sit 15 minutes Franky P Dyana Other [facility] Start: 02-17-2022 Lab Ericka Muniz Other [facility] Start: 02-17-2022 Ericka Muniz Other [facility] Start: 02-17-2022 Office outpatient vi sit 15 minutes Ericka Muniz Other [facility] Start: 01-15-2022 Lab Edilberto Jaimes keshia Other [facility] Start: 01-15-2022 Edilberto Jaimes keshia Other [facility] Start: 01-15-2022 Office outpatient vi sit 15 minutes Franky P Dyana Other [facility] Start: 01-15-2022 Foot examination performed Edilberto Zamora [facility] Start: 01-15-2022 Office outpatient vi sit 25 minutes Edilberto Zamora Other [facility] Start: 10-20-2021 Office outpatient vi sit 25 minutes Franky P Dyana Other [facility] Office Start: 09-17-2021 Office outpatient ne w 45 minutes Franky Yu Dyana Other [facility] Office Start: 09-17-2021 Office Services Franky Yu September and Other [facility] Office Start: 09-03-2021 Office outpatient vi sit 25 minutes Ericka Muniz Other [facility] Office Start: 09-03-2021 Foot examination performed [employer] Start: 09-03-2021 Office outpatient vi sit 25 minutes Edilberto L Zamora Other [facility] Office Start: 08-18-2021 Lab Edilberto L Schroe keshia Other [facility] Office Start: 08-18-2021 Medicare Lab Edilberto L Schroe keshia Other [facility] Start: 08-18-2021 Edilberto L Schroe keshia Other [facility] Office Start: 03-19-2021 Medicare Lab Edilberto L Schroe keshia Other [facility] Start: 03-19-2021 Edilberto L Schroe keshia Other [facility] Start: 03-19-2021 Foot examination performed [employer] Start: 03-19-2021 Office outpatient vi sit 25 minutes Edilberto L Zamora Other [facility] Office Start: 12-23-2020 Lab Ericka Muniz Other [facility] Office Start: 12-23-2020 Ericka Muniz Other [facility] Office Start: 12-23-2020 Office outpatient vi sit 25 minutes Ericka Muniz Other [facility] Office Start: 10-20-2020 Encounter for genera l adult medical examination without abnormal findings Ericka Muniz [employer] Start: 09-09-2020 Foot exam performed Edilberto Zamora [employer] Start: 09-09-2020 Office outpatient vi sit 25 minutes Edilbertogavi Zamora Other [facility] Start: 09-09-2020 Medicare Lab Edilberto Jaimes keshia Other [facility] Start: 09-09-2020 Edilberto L Mareksia keshia Other [facility] Start: 08-05-2020 Office outpatient vi sit 15 minutes Ericka Muniz Other [facility] Start: 06-12-2020 Office outpatient vi sit 15 minutes Ericka Muniz Other [facility] Start: 06-04-2020 Office outpatient vi sit 15 minutes Ericka Muniz Other [facility] Start: 04-08-2020 Medicare Lab Edilberto Jaimes keshia Other [facility] Start: 04-08-2020 Edilberto Lawrence Mareksia keshia Other [facility] Start: 04-08-2020 Foot exam performed Edilberto Zamora [employer] Start: 04-08-2020 Office outpatient vi sit 25 minutes Edilberto L Zamora Other [facility] Start: 03-25-2020 End: 03-28-2020 Patient encounter procedure MIGNON BRASHERCOMB [facility] Start: 03-25-2020 End: 03-27-2020 Subsequent hospital visit by physician [facility] Mri Scanner [facility] MRI Comment on above: Right knee pain, uns pecified chronicity Start: 02-21-2020 Office outpatient vi sit 15 minutes Ericka Muniz Other [facility] Start: 02-12-2020 End: 02-15-2020 Patient encounter procedure ERICKA MUNIZ [facility] Start: 02-12-2020 End: 02-14-2020 Subsequent hospital visit by physician [facility] Mri Scanner [facility] MRI Comment on above: Acute pain of right shoulder Start: 01-10-2020 Office outpatient vi sit 15 minutes Ericka Muniz Other [facility] Start: 12-28-2019 End: 12-28-2019 Subsequent hospital visit by physician Tess Escalona Work Phone: 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 Laboratory Comment on above: Arrived Start: 12-24-2019 End: 12-25-2019 Patient encounter procedure [facility] Start: 12-24-2019 End: 12-28-2019 Subsequent hospital visit by physician [facility] Covid19 Pat Screening Schedule [facility] EKG Start: 12-20-2019 Lab Edilbertogavi Jaimes keshia Other [facility] Office Start: 12-20-2019 Edilbertogavi Jarae keshia Other [facility] Office Start: 11-26-2019 Office outpatient vi sit 15 minutes Ericka Muniz Other [facility] Start: 11-26-2019 Office outpatient vi sit 25 minutes Ericka Muniz Other [facility] Start: 11-19-2019 Lab Ericka Muniz Other [facility] Start: 11-19-2019 Ericka Muniz Other [facility] Start: 08-28-2019 Foot exam performed Edilberto [facility] [employer] Start: 08-28-2019 Office outpatient vi sit 25 minutes Edilberto Zamora Other [facility] Start: 08-21-2019 Lab Edilberto Jaimes keshia Other [facility] Start: 08-21-2019 Edilberto Jaimes keshia Other [facility] Start: 05-28-2019 Encounter for genera l adult medical examination without abnormal findings [employer]ilberto [employer] Start: 05-28-2019 Routine general medi trent examination at a health care facility Ericka Muniz [employer] Start: 05-28-2019 Periodic preventive med est patient 40-64yrs Ericka Muniz Other [facility] Start: 05-22-2019 Lab Ericka Muniz Other [facility] Start: 05-22-2019 Ericka Muniz Other [facility] Start: 04-17-2019 Foot exam performed Edilberto [employer] Start: 04-17-2019 Office outpatient vi sit 25 minutes Edilberto Zamora Other [facility] Start: 04-12-2019 Follow-up visit Ayden [employer] Start: 04-12-2019 Office outpatient vi sit 5 minutes Ayden Trudy[employer]arki Start: 04-12-2019 Postoperative follow -up visit Edilberto [employer] Start: 04-12-2019 Procedure Ayden bowden Other [facility] Start: 04-12-2019 Ayden bowden Other [facility] Start: 04-09-2019 Lab Edilberto Jaimes keshia Other [facility] Start: 04-09-2019 Edilbertogavi Jaimes keshia Other [facility] Start: 03-29-2019 Procedure Ayden Scargladysu gh Other [facility] Start: 03-29-2019 Ayden Anat gh Other [facility] Start: 02-26-2019 Office outpatient ne w 20 minutes Ayden Yates Other [facility] Start: 01-25-2019 Encounter for genera l adult medical examination without abnormal findings Edilberto Zamora [employer] Start: 01-25-2019 Routine general medi trent examination at a health care facility Ericka Muniz [employer] Start: 01-25-2019 Office outpatient vi sit 15 minutes Ericka Muniz Other [facility] Office Start: 01-02-2019 Office Services Natty schneider Other [facility] Office Start: 01-02-2019 Natty ureña Other [facility] Office Start: 12-12-2018 Foot exam performed Edilberto Zamora [employer] Start: 12-12-2018 Office outpatient vi sit 25 minutes Edilberto Zamora Other [facility] Office Start: 12-08-2018 Lab Edilberto schmitt Other [facility] Office Start: 12-08-2018 Edilbertogavi Jarae keshia Other [facility] Office Start: 11-09-2018 Patient encounter procedure LENKA ROQUE [facility] Start: 10-12-2018 Procedure Sasha Morris Other [facility] Start: 10-12-2018 Sasha Morris Other [facility] Start: 10-02-2018 Foot exam performed Edilberto delgado Other [facility] Office Start: 10-02-2018 Office outpatient vi sit 25 minutes Edilberto Zamora Other [employer] Start: 09-26-2018 Office Services Edilbertogavi Jaimes keshia Other [facility] Office Start: 09-26-2018 Edilbertogavi Jaimes keshia Other [facility] Office Start: 08-30-2018 Encounter for genera l adult medical examination without abnormal findings [employer]ilbertogavi [employer] Start: 08-30-2018 Routine general medi trent examination at a health care facility Edilberto Zamora [facility] [employer] Start: 08-30-2018 Office outpatient vi sit 25 minutes Ericka Muniz Other [facility] Office Start: 08-23-2018 Lab Erikca Muniz Other [facility] Office Start: 08-23-2018 Ericka Muniz Other [facility] Office Start: 07-27-2018 Office Services Edilberto L Mareke keshia Other [facility] Office Start: 07-27-2018 Edilberto L Mareke keshia Other [facility] Office Start: 06-21-2018 Procedure Pedro pitts Other [facility] Start: 06-21-2018 Pedro pitts Other [facility] Start: 06-19-2018 Foot exam performed Edilberto L Sc hroeder Other [facility] Office Start: 06-19-2018 Office outpatient vi sit 25 minutes Edilberto L Zamora Other [employer] Start: 06-12-2018 Lab Edilberto L Mareke keshia Other [facility] Office Start: 06-12-2018 Edilberto L Mareke keshia Other [facility] Office Start: 04-20-2018 Walk-In Ericka Muniz Other [facility] Office Start: 04-20-2018 End: 04-20-2018 Ericka Muniz Other [facility] Office Start: 04-20-2018 Office Services Natty schneider Other [facility] Office Start: 03-20-2018 Foot exam performed Edilberto L Sc hroeder Other [facility] Office Start: 03-20-2018 Office outpatient vi sit 25 minutes Edilberto L Zamora Other [employer] Start: 03-08-2018 Lab Edilberto L Mareksia keshia Other [facility] Start: 03-08-2018 Edilberto L Mareksia keshia Other [facility] Start: 03-01-2018 Office outpatient vi sit 25 minutes Ericka Muniz Other [facility] Start: 02-22-2018 Lab Ericka Muniz Other [facility] Start: 02-22-2018 Ericka Muniz Other [facility] Start: 01-18-2018 Office Services Ericka Muniz Other [facility] Start: 01-18-2018 Ericka Muniz Other [facility] Start: 12-13-2017 Foot exam performed Edilberto delgado Other [facility] Start: 12-13-2017 Office outpatient vi sit 25 minutes Edilberto Zamora Other [facility] Start: 12-09-2017 Office Services Ericka Muniz Other [facility] Start: 12-09-2017 Ericka Muniz Other [facility] Start: 11-25-2017 Lab Edilberto Lawrence Mareke keshia Other [facility] Start: 11-25-2017 Edilberto L Mareke keshia Other [facility] Start: 09-08-2017 Office Services Edilberto Melinda Jaimes keshia Other [facility] Start: 09-08-2017 Edilberto L Mareke keshia Other [facility] Start: 09-01-2017 Office outpatient vi sit 25 minutes Ericka Muniz Other [facility] Start: 08-24-2017 Lab Ericka Muniz Other [facility] Start: 08-24-2017 Ericka Muniz Other [facility] Start: 08-09-2017 Office Services Natty schneider Other [facility] Office Start: 08-09-2017 Natty ureña Other [facility] Office Start: 08-05-2017 Foot exam performed Edilberto Zamora [employer] Start: 08-05-2017 Office outpatient vi sit 25 minutes Edilberto L Zamora Other [facility] Office Start: 08-01-2017 Lab Edilberto L Schroe keshia Other [facility] Office Start: 08-01-2017 Edilberto L Mareke keshia Other [facility] Office Start: 06-27-2017 Office outpatient vi sit 15 minutes Ericka Muniz Other [facility] Office Start: 04-05-2017 Foot exam performed Edilbertogavi Thomas hroeder Other [facility] Office Start: 04-05-2017 Office outpatient vi sit 25 minutes Edilberto L Zamora Other [employer] Start: 03-29-2017 Lab Edilberto L Mareke keshia Other [facility] Office Start: 03-29-2017 Edilberto Melinda Jarae keshia Other [facility] Office Start: 03-01-2017 Office outpatient vi sit 25 minutes Ericka Muniz Other [facility] Office Start: 02-17-2017 End: 02-17-2017 Split Srvc Ericka Muniz Other [facility] Office Start: 02-17-2017 End: 02-17-2017 Ericka Muniz Other [facility] Office Start: 02-09-2017 Office outpatient vi sit 25 minutes Ericka Muniz Other [facility] Office Start: 11-30-2016 Foot exam performed Edilberto L Sc hroeder Other [facility] Office Start: 11-30-2016 Office outpatient vi sit 25 minutes Edilberto L Zamora Other [employer] Start: 11-23-2016 Lab Edilberto L Schroe keshia Other [facility] Start: 11-23-2016 Edilberto L Schroe keshia Other [facility] Office Start: 09-28-2016 Office outpatient vi sit 25 minutes Ericka Muniz Other [facility] Office Start: 09-21-2016 Lab Ericka Muniz Other [facility] Office Start: 09-21-2016 Ericka Muniz Other [facility] Office Start: 08-13-2016 Split Srvc Sasha Morris Other [facility] Office Start: 08-13-2016 Sasha Morris Other [facility] Office Start: 08-03-2016 Foot exam performed Edilberto L Sc hroeder Other [facility] Office Start: 08-03-2016 Office outpatient vi sit 25 minutes Edilberto L Zamora Other [employer] Start: 07-27-2016 Lab Edilberto L Schroe keshia Other [facility] Office Start: 07-27-2016 Edilberto L Schroe keshia Other [facility] Office Start: 03-31-2016 Office outpatient vi sit 25 minutes Ericka Muniz Other [facility] Office Start: 03-30-2016 Foot exam performed Edilberto L Sc hroeder Other [facility] Office Start: 03-30-2016 Office outpatient vi sit 25 minutes Edilberto L Zamora Other [employer] Start: 03-04-2016 Lab Edilberto L Schroe keshia Other [facility] Office Start: 03-04-2016 Edilberto L Schroe keshia Other [facility] Office Start: 02-23-2016 Office outpatient vi sit 15 minutes Ericka Muniz Other [facility] Office Start: 12-23-2015 Office outpatient vi sit 15 minutes Ericka Muniz Other [facility] Office Start: 12-09-2015 Office outpatient vi sit 15 minutes Ericka Muniz Other [facility] Office Start: 12-03-2015 Office outpatient vi sit 15 minutes Edilberto Zamora Other [facility] Office Start: 11-26-2015 Lab Edilberto L Mareke keshia Other [facility] Office Start: 11-26-2015 Edilberto L Mareke keshia Other [facility] Office Start: 11-18-2015 Office outpatient vi sit 25 minutes Ericka Muniz Other [facility] Office Start: 11-07-2015 Lab Edilberto Lawrence Mareke keshia Other [facility] Office Start: 11-07-2015 Edilberto L Mareke keshia Other [facility] Office Start: 11-05-2015 Foot exam performed Edilberto delgado Other [facility] Office Start: 11-05-2015 Office outpatient vi sit 25 minutes Edilberto Melinda JaraZamora Other [employer] Start: 10-29-2015 Lab Edilberto Jaimes keshia Other [facility] Office Start: 10-29-2015 Edilberto Lawrence Mareksia keshia Other [facility] Office Start: 10-13-2015 Office outpatient vi sit 15 minutes Ericka Muniz Other [facility] Office Start: 10-03-2015 Foot exam performed Edilberto Zamora [employer] Start: 10-03-2015 Office consultation new/estab patient 80 min Edilberto Zamora Other [facility] Office Start: 10-02-2015 Office Services Ericka Muniz Other [facility] Office Start: 10-02-2015 Ericka Muniz Other [facility] Office Start: 09-29-2015 Office outpatient vi sit 25 minutes Ericka Muniz Other [facility] Start: 09-24-2015 Procedure Jesus Del Cid Other [facility] Start: 09-24-2015 Jesus Del Cid Other [facility] Start: 08-26-2015 Office consultation new/estab patient 60 min Jesus Del Cid Other [facility] Start: 08-12-2015 Office Services Ericka Muniz Other [facility] Start: 08-12-2015 Ericka Muniz Other [facility] Start: 08-06-2015 Split Srvc Ericka Muniz Other [facility] Start: 08-06-2015 Ericka Muniz Other [facility] Start: 08-05-2015 Lab Ericka Muniz Other [facility] Start: 08-05-2015 End: 08-05-2015 Ericka Muniz Other [facility] Start: 08-05-2015 End: 08-05-2015 Split Srvc Ericka Muniz Other [facility] Start: 07-24-2015 Office outpatient vi sit 15 minutes Lindsay Kimball Other [facility] Office Start: 06-03-2015 Office outpatient ne w 45 minutes Ericka Muniz Other [facility] Office Procedures Date Procedure Procedure Detail Performing Clinician Start: 12-25-2024 Comprehensive metabolic panel Ericka Muniz Start: 12-25-2024 Hemoglobin A1c measurement Ericka Muniz Start: 12-25-2024 Lipid panel Ericka Muniz Start: 12-25-2024 Cinthia Schworm Start: 07-19-2024 Plain chest X-ray Ericka Muniz MD Work Phone: Start: 03-16-2024 Comprehensive metabolic panel Ericka Muniz Start: 03-16-2024 Hemoglobin A1c measurement Ericka Muniz Start: 03-16-2024 Lipid panel Ericka Muniz Start: 03-16-2024 Thyroid stimulating hormone measurement Ericka Muniz Start: 03-16-2024 Vitamin B12 measurement Cinthia Schworm Start: 11-14-2023 Diabetic foot examination Ericka Muniz Start: 11-14-2023 Hemoglobin A1c measurement Ericka Muniz Start: 11-14-2023 Most recent diastolic blood pressure 80-89 mm hg Cinthia Schworm Start: 11-14-2023 Most recent systolic blood pres>/equal 140 mm hg Cinthia Schworm Start: 11-14-2023 Most recent systolic blood pressure <130 mm hg Cinthia Schworm Start: 11-14-2023 Ericka Muniz Start: 2023 Comprehensive metabolic panel Ericka Muniz Start: 2023 Erythrocyte mean corpuscular volume determination Ericka Muniz Start: 2023 Lipid panel Ericka Muniz Start: 2023 Ericka Muniz Start: 07-28-2023 Comprehensive metabolic panel Cinthia Schw orm Start: 07-28-2023 Hemoglobin A1c measurement Cinthia Schworm Start: 07-28-2023 Lipid panel Cinthia Schworm Start: 07-28-2023 Cinthia Schworm Start: 01-25-2023 End: 01-25-2023 Comprehensive metabolic panel Ericka Muniz Start: 01-25-2023 Diabetic foot examination Ericka Muniz Start: 01-25-2023 Erythrocyte mean corpuscular volume determination Ericka Muniz Start: 01-25-2023 Most recent diastolic blood pressure < 80 mm hg Ericka Muniz Start: 01-25-2023 Most recent systolic blood pressure <130 mm hg Ericka Muniz Start: 01-25-2023 End: 01-25-2023 Ericka Muniz Start: 01-24-2023 Hemoglobin A1c measurement Ericka Muniz Start: 01-24-2023 Lipid panel Ericka Muniz Start: 07-27-2022 Dip UA (for Ketones) Edilberto Zamora Start: 07-27-2022 Serum inorganic phosphate measurement Edilberto Zamora Start: 07-27-2022 Ericka Flavio Start: 07-27-2022 Diabetic foot examination Edilberto shah Start: 07-27-2022 Docrev shraddha meds by liv torres Start: 07-27-2022 Documentation of current medications Ericka Flavio Start: 07-21-2022 Comprehensive metabolic panel Edilberto pérez Start: 07-21-2022 Hemoglobin A1c measurement Edilberto levi Start: 07-21-2022 MICROALBUMIN/Urine Creat Ratio Edilberto michel Start: 07-21-2022 Parathyroid hormone measurement Edilberto delgado Start: 07-21-2022 Vitamin D, 25-hydroxy measurement Edilberto Zamora Start: 07-21-2022 Ericka Muniz Start: 07-19-2022 Lipid panel Edilberto Zamora Start: 05-26-2022 CT of right foot Start: 05-04-2022 X-ray of left ankle Ericka Muniz Start: 04-22-2022 MRI of right foot with contrast Start: 04-21-2022 MRI of right ankle with contrast Start: 04-05-2022 C-reactive protein measurement Ericka Muniz Start: 04-05-2022 Complete blood count Ericka Muniz Start: 04-05-2022 Comprehensive metabolic panel Ericka Muniz Start: 04-05-2022 Erythrocyte sedimentation rate, non-automated Ericka Muniz Start: 04-05-2022 MRI of lower extremity Edilberto Zamora Start: 04-05-2022 Serum lactate measurement Ericka Muniz Start: 04-01-2022 Duplex scan of lower limb veins Start: 04-01-2022 X-ray of right foot Start: 03-31-2022 Docrev cur meds by liv anton Start: 03-31-2022 Documentation of current medications Ericka Muniz Start: 03-31-2022 X-ray of left ankle Franky Dyana Start: 03-16-2022 Diagnostic radiologic examination Heriberto Gunn Other Start: 03-16-2022 Docrev cur meds by liv anton Start: 03-16-2022 Documentation of current medications Ericka Muniz Start: 03-16-2022 Strapping of ankle Ericka Muniz Start: 03-16-2022 Walking boot, non-pneumatic, with or without joints, with or without interface material, prefabricated, [id number] Ericka Muniz Start: 03-16-2022 X-ray of left ankle Franky Dyana Start: 03-16-2022 X-ray of left foot Franky Dyana Start: 02-17-2022 End: 02-17-2022 Comprehensive metabolic panel Frankycally wilde Start: 02-17-2022 Destruction of lesion of skin Ericka Muniz Start: 02-17-2022 Docrev cur meds by liv wells Ericka Muniz Start: 02-17-2022 Documentation of current medications Ericka Muniz Start: 02-17-2022 Hemoglobin A1c measurement Franky Naidu nd Start: 02-17-2022 Lipid panel Franky Turpin Start: 02-17-2022 MICROALBUMIN/Urine Creat Ratio Franky Ma rchand Start: 02-17-2022 Ericka Muniz Start: 02-16-2022 Docrev cur meds by liv wells Ericka Muniz Start: 02-16-2022 Documentation of current medications Ericka Muniz Start: 01-18-2022 Diabetic foot examination Edilberto shah Start: 01-15-2022 Dip UA (for Ketones) Edilberto Zamora Start: 01-15-2022 Ericka Muniz Start: 01-15-2022 Docrev cur meds by liv torres Start: 01-15-2022 Documentation of current medications Ericka Muniz Start: 01-15-2022 Reduction of callus Ericka Muniz Start: 01-14-2022 Docrev cur meds by liv anton Start: 01-14-2022 Documentation of current medications Ericka Muniz Start: 01-01-2022 Comprehensive metabolic panel Edilberto pérez Start: 01-01-2022 Erythrocyte mean corpuscular volume determination Edilberto Zamora Start: 01-01-2022 Gamma glutamyl transferase measurement Edilberto Zamora Start: 01-01-2022 Hemoglobin A1c measurement Edilberto levi Start: 01-01-2022 MICROALBUMIN/Urine Creat Ratio Edilberto michel Start: 01-01-2022 Ericka Muniz Start: 10-20-2021 Docrev cur meds by liv Arenas hand Start: 10-20-2021 Documentation of current medications Ericka Muniz Start: 09-18-2021 Debridement of nail Ericka Muniz Start: 09-18-2021 Drainage of abscess Ericka Muniz Start: 09-18-2021 Procedure on skin Ericka Muniz Start: 09-17-2021 Dup-scan lxtr art/artl bpgs uni/lmtd study Franky Turpin Start: 09-17-2021 Non-invasive physiologic study extremity 3 levls Franky Turpin Start: 09-17-2021 Docrev cur meds by liv Arenas hand Start: 09-17-2021 Documentation of current medications Ericka Muniz Start: 09-17-2021 Doppler ultrasonography of artery of lower limb Franky Turpin Start: 09-17-2021 Plain X-ray of toe Franky Turpin Start: 09-17-2021 Wound microscopy, culture and sensitivities Franky Turpin Start: 09-03-2021 Diabetic foot examination Edilberto Marekellie r Start: 09-03-2021 Docrev cur meds by elbert clin Edilberto torres Start: 09-03-2021 Documentation of current medications Ericka Muniz Start: 08-18-2021 BS-Dip Edilberto Sera Start: 08-18-2021 Ericka Muniz Start: 08-18-2021 Comprehensive metabolic panel Edilberto Muñozr elisa Start: 08-18-2021 Erythrocyte mean corpuscular volume determination Edilberto Zamora Start: 08-18-2021 Hemoglobin A1c measurement Edilberto Marekami gurmeet Start: 08-18-2021 Lipid panel Edilberto Zamora Start: 07-19-2021 Basic metabolic panel calcium total Ericka Muniz Start: 07-19-2021 Gamma glutamyl transferase measurement Edilberto Zamora Start: 07-19-2021 Hemoglobin A1c measurement Ericka Muniz Start: 06-24-2021 Comprehensive metabolic panel Ericka Muniz Start: 06-24-2021 Erythrocyte mean corpuscular volume determination Ericka Muniz Start: 06-24-2021 Hemoglobin A1c measurement Ericka Muniz Start: 06-24-2021 Lipid panel Ericka Muniz Start: 03-19-2021 Dip UA (for Ketones) Edilberto Sera Start: 03-19-2021 Ericka Muniz Start: 03-19-2021 Diabetic foot examination Edilberto Marekellie r Start: 03-19-2021 Docrev cur meds by elbert clin Edilberto torres Start: 03-19-2021 Documentation of current medications Ericka Muniz Start: 03-12-2021 Comprehensive metabolic panel Edilberto Schr oeder Start: 03-12-2021 Erythrocyte mean corpuscular volume determination Edilberto Sera Start: 03-12-2021 Hemoglobin A1c measurement Edilberto Marekami er Start: 03-12-2021 Parathyroid hormone measurement Edilberto William hroeder Start: 03-12-2021 Serum inorganic phosphate measurement Edilberto Zamroa Start: 12-23-2020 End: 12-23-2020 Comprehensive metabolic panel Ericka Muniz Start: 12-23-2020 Docrev cur meds by liv wells Ericka Muniz Start: 12-23-2020 Documentation of current medications Ericka Muniz Start: 12-23-2020 Erythrocyte mean corpuscular volume determination Ericka Muniz Start: 12-23-2020 Hemoglobin A1c measurement Ericka Muniz Start: 12-23-2020 Lipid panel Ericka Muniz Start: 12-23-2020 MICROALBUMIN/Urine Creat Ratio Edilberto michel Start: 12-23-2020 Urinalysis, automated Ericka Muniz Start: 12-23-2020 Ericka Muniz Start: 09-09-2020 Dip UA (for Ketones) Edilberto Zamora Start: 09-09-2020 Ericka Muniz Start: 09-09-2020 Diabetic foot examination Edilberto shah Start: 09-09-2020 Doc meds verified w/pt or re Edilbreto torres Start: 09-09-2020 Documentation of current medications Ericka Muniz Start: 08-08-2020 Comprehensive metabolic panel Edilberto pérez Start: 08-08-2020 Hemoglobin A1c measurement Ericka Muniz Start: 08-08-2020 Hemoglobin glycosylated a1c Edilberto schmitt Start: 04-08-2020 Dip UA (for Ketones) Edilberto Zamora Start: 04-08-2020 Ericka Muniz Start: 04-08-2020 Diabetic foot examination Edilberto shah Start: 04-08-2020 Doc meds verified w/pt or re Edilberto torres Start: 04-08-2020 Documentation of current medications Ericka Muniz Start: 03-28-2020 Glucose quantitative blood xcpt reagent strip Edilberto Zamora Start: 03-28-2020 Hemoglobin A1c measurement Ericka Muniz Start: 03-28-2020 Hemoglobin glycosylated a1c Edilberto schmitt Start: 03-28-2020 Hepatic function panel Edilberto Zamora Start: 03-28-2020 Hepatic function panel Ericka Muniz Start: 03-25-2020 Mri any jt lower extrem w/o contrast matrl WALTER CALVILLO Start: 03-25-2020 Mri any jt lower extrem w/o contrast matrl Mignon Greenwood Work Phone: Start: 02-21-2020 Doc meds verified w/pt or re Ericka Muniz Start: 02-21-2020 Documentation of current medications Ericka Muniz Start: 02-12-2020 Mri any jt upper extremity w/o contrast matrl WALTER CALVILLO Start: 02-12-2020 Mri any jt upper extremity w/o contrast matrl Mignon Verdugo [place] Work Phone: Start: 01-09-2020 Doc meds verified w/pt or re Edilberto Marek muellerer Start: 01-09-2020 Documentation of current medications Ericka Muniz Start: 12-28-2019 GLUCOSE, WHOLE BLOOD Tess Abreuland Work Phone: Start: 12-27-2019 Basic metabolic panel calcium total Edilberto Jaraeder Start: 12-27-2019 Doc meds verified w/pt or re Edilberto Marek torres Start: 12-27-2019 Documentation of current medications Ericka Muniz Start: 12-27-2019 Hemoglobin A1c measurement Ericka Muniz [...] Start: 12-26-2019 Blood count hematocrit Tess C Escalona Work Phone: Start: 12-26-2019 Creatinine blood Tess C Escalona Work Phone: Start: 12-26-2019 Electrolyte panel Tess C Escalona Work Phone: Start: 12-26-2019 Glucose quantitative blood xcpt reagent strip Tess C Escalona Work Phone: Start: 12-24-2019 Ecg routine ecg w/least 12 lds w/i&r WALTER CALVILLO Start: 12-24-2019 EKG REPORT WALTER CALVILLO Start: 12-24-2019 COVID-19 WALTER CALVILLO Start: 12-24-2019 Ecg routine ecg w/least 12 lds w/i&r Tess Hernandez Escalona Work Phone: Start: 12-24-2019 EKG REPORT Hpf Scanning Start: 12-24-2019 COVID-19 Walter Calvillo Work Phone: Start: 11-27-2019 Comprehensive metabolic panel Ericka Muniz Start: 11-27-2019 Hemoglobin A1c measurement Ericka Muniz Start: 11-27-2019 Hemoglobin glycosylated a1c Ericka Muniz Start: 11-27-2019 Lipid panel Ericka Muniz Start: 11-27-2019 Lipid panel Ericka Muniz Start: 11-27-2019 MICROALBUMIN/Urine Creat Ratio Ericka Muniz Start: 11-27-2019 Ericka Muniz Start: 11-26-2019 Doc meds verified w/pt or re Ericka Muniz Start: 11-26-2019 Documentation of current medications Ericka Muniz Start: 08-28-2019 Basic metabolic panel calcium total Edilberto Zamora Start: 08-28-2019 Diabetic foot examination Edilberto Whatley r Start: 08-28-2019 Doc meds verified w/pt or re Edilberto torres Start: 08-28-2019 Documentation of current medications Ericka Muniz Start: 08-18-2019 Assay of glutamyltrase gamma Edilberto torres Start: 08-18-2019 Basic metabolic panel calcium total Edilberto Zamora Start: 08-18-2019 Gamma glutamyl transferase measurement Ericka Muniz Start: 08-18-2019 Hemoglobin A1c measurement Ericka Muniz Start: 08-18-2019 Hemoglobin glycosylated a1c Edilberto Mareksia schmitt Start: 05-28-2019 Doc meds verified w/pt or re Ericka Muniz Start: 05-28-2019 Documentation of current medications Ericka Muniz Start: 05-22-2019 Assay of prostate [...] Muniz Start: 04-17-2019 Diabetic foot examination Edilberto Peggye r Start: 04-17-2019 Doc meds verified w/pt or re Edilberto Schro brian Start: 04-17-2019 Documentation of current medications Ericka Muniz Start: 04-13-2019 Assay of glutamyltrase gamma Ayedn Scarb rough Start: 04-13-2019 Comprehensive metabolic panel Ayden Scar darlene Start: 04-13-2019 Gamma glutamyl transferase measurement Ericka Muniz Start: 04-13-2019 Hemoglobin A1c measurement Ericka Muniz Start: 04-13-2019 Hemoglobin glycosylated a1c Ayden Scarbr ough Start: 04-13-2019 MICROALBUMIN/Urine Creat Ratio Ayden Sca rbrough Start: 04-13-2019 Ericka Muniz Start: 04-12-2019 Postoperative follow-up visit Ericka Muniz Start: 03-29-2019 Doc meds verified w/pt or re Ayden Scarb rough Start: 03-29-2019 Documentation of current medications Ericka Muniz Start: 03-29-2019 Exc b9 lesion mrgn xcp [...] Prostate specific antigen measurement Ericka Muniz Start: 02-27-2019 Ericka Muniz Start: 02-26-2019 Doc meds verified w/pt or re Ayden Scarb rough Start: 02-26-2019 Documentation of current medications Ericka Muniz Start: 02-26-2019 Skin Tag removal (SKNTG) Edilberto Zamora Start: 02-26-2019 Ericka Muniz Start: 01-25-2019 Doc meds verified w/pt or re Ericka Muniz Start: 01-25-2019 Documentation of current medications Ericka Muniz Start: 01-02-2019 Medical nutrition re-assmt&ivntj indiv ea 15 m Edilberto Sera Start: 12-12-2018 Diabetic foot examination Edilberto Marekellie judy Start: 12-02-2018 Glucose measurement, quantitative Ericka F ox Start: 12-02-2018 Glucose quantitative blood xcpt reagent strip Edilberto Zamora Start: 12-02-2018 Hemoglobin A1c measurement Ericka Muniz Start: 12-02-2018 Hemoglobin glycosylated a1c Edilberto schmitt Start: 10-02-2018 Diabetic foot examination Edilberto Marekamisia r Start: 10-02-2018 Doc meds verified w/pt or re Edilberto torres Start: 10-02-2018 Documentation of current medications Ericka Muniz Start: 09-26-2018 Medical nutrition re-assmt&ivntj indiv ea [...] Vitamin B12 and Folate Edilberto Zamora Start: 09-17-2018 Ericka Muniz Start: 09-01-2018 Assay of prostate specific antigen total Edilberto Zamora Start: 09-01-2018 Comprehensive metabolic panel Edilberto pérez Start: 09-01-2018 Hemoglobin A1c measurement Ericka Muniz Start: 09-01-2018 Hemoglobin glycosylated a1c Edilberto Theodore schmitt Start: 09-01-2018 Lipid panel Edilberto Zamora Start: 09-01-2018 Lipid panel Ericka Muniz Start: 09-01-2018 MICROALBUMIN/Urine Creat Ratio Edilberto michel Start: 09-01-2018 Prostate specific antigen measurement Ericka Muniz Start: 09-01-2018 Ericka Muniz Start: 08-30-2018 Doc meds verified w/pt or re Edilberto torres Start: 08-30-2018 Documentation of current medications Ericka Muniz Start: 07-27-2018 Medical nutrition re-assmt&ivntj indiv ea 15 m Edilberto Zamora Start: 06-19-2018 Diabetic foot examination Edilberto Whatley r Start: 06-19-2018 Doc meds verified w/pt or re Edilberto torres Start: 06-19-2018 Documentation of current medications Ericka Muniz Start: 06-19-2018 Glucose measurement, quantitative Ericka F ox Start: 06-19-2018 Glucose quantitative blood xcpt reagent strip Edilberto Zamora Start: 06-19-2018 Hemoglobin A1c measurement Ericka Muniz Start: 06-19-2018 Hemoglobin glycosylated a1c Edilberto Mareksia keshia Start: 04-20-2018 Medical nutrition re-assmt&ivntj indiv ea 15 m Ericka Muniz Start: 03-20-2018 Diabetic foot examination Edilberto Whatley r Start: 03-15-2018 Glucose measurement, quantitative Ericka F ox Start: 03-15-2018 Glucose quantitative blood xcpt reagent strip Ayden Yates Start: 03-15-2018 Hemoglobin A1c measurement Ericka Muniz Start: 03-15-2018 Hemoglobin glycosylated a1c Ayden ruth Start: 03-15-2018 MICROALBUMIN/Urine Creat Ratio Ayden David lugo Start: 03-15-2018 Ericka Muniz Start: 03-01-2018 Doc meds verified w/pt or re Edilberto torres Start: 03-01-2018 Documentation of current medications Ericka Muniz Start: 02-23-2018 Comprehensive metabolic panel Edilberto pérez Start: 02-23-2018 Hemoglobin A1c measurement Ericka Muniz Start: 02-23-2018 Hemoglobin glycosylated a1c Edilberto schmitt Start: 02-23-2018 Lipid panel Edilberto Zamora Start: 02-23-2018 Lipid panel Ericka Muniz Start: 02-23-2018 MICROALBUMIN/Urine Creat Ratio Edilberto michel Start: 02-23-2018 Ericka Muniz Start: 01-18-2018 Medical nutrition re-assmt&ivntj indiv ea 15 m Ayden Yates Start: 12-13-2017 Diabetic foot examination Edilberto Whatley r Start: 12-13-2017 Doc meds verified w/pt or re Edilberto torres Start: 12-13-2017 Documentation of current medications Ericka Muniz Start: 12-13-2017 Hepatic function panel [...] 09-08-2017 Diab manage trn per indiv Edilberto Whatley r Start: 09-08-2017 Diabetes self-monitoring health education Ericka Muniz Start: 09-01-2017 Current Medications Verified MIPS Edilberto Zamora Start: 09-01-2017 Ericka Muniz Start: 08-25-2017 Alanine aminotransferase measurement Ericka Muniz Start: 08-25-2017 Aspartate aminotransferase measurement Ericka Muniz Start: 08-25-2017 Basic metabolic panel calcium total Edilberto Zamora Start: 08-25-2017 Hemoglobin A1c measurement Ericka Muniz Start: 08-25-2017 Hemoglobin glycosylated a1c Edilberto schmitt Start: 08-25-2017 Lipid panel Edilberto Zamora Start: 08-25-2017 Lipid panel Ericka Muniz Start: 08-25-2017 MICROALBUMIN/Urine Creat Ratio Edilberto Toni michel Start: 08-25-2017 Transferase alanine amino alt sgpt Edilberto Zamora Start: 08-25-2017 Transferase aspartate amino ast sgot Edilberto Zamora Start: 08-25-2017 Ericka Muniz Start: 08-09-2017 Diab manage trn per indiv Edilberto Woodssia r Start: 08-09-2017 Diabetes self-monitoring health education Ericka Muniz Start: 08-05-2017 Diabetic foot examination Edilberto Phylicia judy Start: 08-05-2017 Glucose measurement, quantitative Ericka F ox Start: 08-05-2017 Glucose quantitative blood xcpt reagent strip Edilberto Zamora Start: 08-05-2017 Hemoglobin A1c measurement Ericka Muniz Start: 08-05-2017 Hemoglobin glycosylated a1c Edilberto schmitt Start: 08-01-2017 BS-Dip Edilberto Zamora Start: 08-01-2017 Ericka Muniz Start: 06-27-2017 Doc meds verified w/pt or re Edilberto Marek torres Start: 06-27-2017 Documentation of current medications Ericka Muniz Start: 04-05-2017 Current Medications Verified MIPS Edilberto Zamora Start: 04-05-2017 Diabetic foot examination Edilberto Phylicia r Start: 04-05-2017 Ericka Muniz Start: 04-02-2017 Glucose measurement, quantitative Ericka F ox Start: 04-02-2017 Glucose quantitative blood xcpt reagent strip Edilberto Zamora Start: 04-02-2017 Hemoglobin A1c measurement Ericka Muniz Start: 04-02-2017 Hemoglobin glycosylated a1c Edilberto Theodore keshia Start: 04-02-2017 MICROALBUMIN/Urine Creat Ratio Edilberto Toni michel Start: 04-02-2017 Ericka Muniz Start: 03-29-2017 Dip UA (for Ketones) Edilberto Zamora Start: 03-29-2017 Ericka Muniz Start: 03-01-2017 Doc meds verified w/pt or re Edilberto torres Start: 03-01-2017 Documentation of current medications Ericka Muniz Start: 02-17-2017 Cv strs tst xers&/or rx cont ecg w/si&r Edilberto Zamora Start: 02-17-2017 Electrocardiogram with exercise test Ericka Muniz Start: 02-17-2017 Myocardial spect multiple studies Edilberto Zamora Start: 02-17-2017 Regadenoson injection Edilberto Zamora Start: 02-17-2017 [id number] sestamibi Edilberto Zamora Start: 02-09-2017 Doc meds verified w/pt or re Edilberto torres Start: 02-09-2017 Documentation of current medications Ericka Muniz Start: 02-09-2017 Ecg routine ecg w/least 12 lds w/i&r Edilberto Zamora Start: 12-01-2016 Glucose measurement, quantitative Ericka allen Start: 12-01-2016 Glucose quantitative blood xcpt reagent strip Edilberto Zamora Start: 12-01-2016 Hemoglobin A1c measurement Ericka Muniz Start: 12-01-2016 Hemoglobin glycosylated a1c Edilberto Theodore keshia Start: 11-30-2016 Diabetic foot examination Edilberto shah Start: 11-23-2016 Dip UA (for Ketones) Edilberto Zamora Start: 11-23-2016 Ericka Muniz Start: 09-21-2016 Alanine aminotransferase measurement Ericka Muniz Start: 09-21-2016 Aspartate aminotransferase measurement Ericka Muniz Start: 09-21-2016 End: 09-21-2016 Basic metabolic panel calcium total Edilberto Sera Start: 09-21-2016 Hemoglobin A1c measurement Ericka Muniz Start: 09-21-2016 Hemoglobin glycosylated a1c Edilberto Mareksia schmitt Start: 09-21-2016 Lipid panel Edilberto Zamora Start: 09-21-2016 Lipid panel Ericka Muniz Start: 09-21-2016 Transferase alanine amino alt sgpt Edilberto Zamora Start: 09-21-2016 Transferase aspartate amino ast sgot Edilberto Zamora Start: 09-21-2016 Basic metabolic panel calcium ionized Edilberto Zamora Start: 09-21-2016 Blood chemistry Ericka Muniz Start: 08-24-2016 MICROALBUMIN/Urine Creat Ratio Edilberto michel Start: 08-24-2016 Ericka Muniz Start: 08-13-2016 Ankle brachial pressure index Ericka Muniz Start: 08-13-2016 Non-invas physiologic std extremity art 2 level Edilberto Zamora Start: 08-03-2016 Ankle brachial pressure index Ericka Muniz Start: 08-03-2016 Diabetic foot examination Edilberto Whatley r Start: 08-03-2016 Non-invas physiologic std extremity art [...] Start: 07-30-2016 Thyroxine measurement Ericka Muniz Start: 07-30-2016 Ericka Muniz Start: 07-27-2016 Basic metabolic panel calcium ionized Edilberto Zamora Start: 07-27-2016 Basic metabolic panel calcium total Edilberto Zamora Start: 07-27-2016 Blood chemistry Ericka Muniz Start: 07-27-2016 Dip UA (for Ketones) Edilberto Zamora Start: 07-27-2016 Ericka Muniz Start: 03-30-2016 Diabetic foot examination Edilberto Whatley r Start: 03-20-2016 Alanine aminotransferase measurement Ericka Muniz [...] panel calcium total Edilberto Zamora Start: 03-04-2016 Glucose measurement, quantitative Ericka F ox Start: 03-04-2016 Hemoglobin A1c measurement Ericka Muniz Start: 03-04-2016 Hemoglobin glycosylated a1c Edilberto schmitt Start: 12-05-2015 Assay of thyroid stimulating hormone tsh Edilberto Zamora Start: 12-05-2015 Assay of thyroxine total Edilberto Zamora Start: 12-05-2015 Glucose measurement, quantitative Ericka Coughlin ox Start: 12-05-2015 Glucose quantitative blood xcpt reagent strip Edilberto Zamora Start: 12-05-2015 Hemoglobin A1c measurement Ericka Muniz Start: 12-05-2015 Hemoglobin glycosylated a1c Edilberto Jaimes keshia Start: 12-05-2015 MICROALBUMIN/Urine Creat Ratio Edilberto doeder Start: 12-05-2015 Thyroid stimulating hormone measurement Ericka Muniz Start: 12-05-2015 Thyroxine measurement Ericka Muniz Start: 12-05-2015 Ericka Muniz Start: 11-18-2015 End: 11-18-2015 Digital analysis electroencephalogram Edilberto Zamora Start: 11-18-2015 Electroencephalographic procedure Ericka allen Start: 11-05-2015 Cortisol measurement Ericka Muniz Start: 11-05-2015 Cortisol total Edilberto Zamora Start: 11-05-2015 Diabetic foot examination Edilberto shah Start: 11-03-2015 Basic metabolic panel calcium total Edilberto Zamora Start: 11-03-2015 Hemoglobin A1c measurement Ericka Muniz Start: 11-03-2015 Hemoglobin glycosylated a1c Edilberto schmitt Start: 11-03-2015 MICROALBUMIN/Urine Creat Ratio Edilberto michel Start: 11-03-2015 Ericka Muniz Start: 10-03-2015 Assay of c-peptide Edilberto Zamora Start: 10-03-2015 Basic metabolic panel calcium total Edilberto Zamora Start: 10-03-2015 Cortisol measurement Ericka Muniz Start: 10-03-2015 Cortisol total Edilberto Zamora Start: 10-03-2015 Diab manage trn per indiv Edilberto shah Start: 10-03-2015 Diabetes self-monitoring health education Ericka Muniz Start: 10-03-2015 Diabetic foot examination Edilberto Jaraellie r Start: 10-03-2015 Glucose measurement, quantitative Ericka Coughlin ox Start: 10-03-2015 Glucose quantitative blood xcpt reagent strip Edilberto Zamora Start: 10-03-2015 Insulin C-peptide measurement Ericka Muniz Start: 09-29-2015 Medical nutrition assmt&ivntj indiv each 15 mi Edilberto Sera Start: 09-29-2015 Therapeutic prophylactic/dx injection subq/im Edilberto Zamora Start: 09-24-2015 Unlisted pulmonary service/procedure Edilberto Zamora Start: 08-26-2015 Allergen spec ige crude allergen extract each Edilberto Zamora Start: 08-26-2015 Assay of gammaglobulin ige Edilberto Woods er Start: 08-26-2015 Blood count complete auto&auto difrntl wbc Edilberto Zamora Start: 08-26-2015 Complete blood count Ericka Muniz Start: 08-26-2015 Erythrocyte sedimentation rate, non-automated Ericka Muniz Start: 08-26-2015 Immunoglobulin E measurement Ericka Muniz Start: 08-26-2015 Sedimentation rate rbc non-automated Edilberto Zamora Start: 08-12-2015 Pulmonart Consult Edilberto Zamora Start: 08-12-2015 Ericka Muniz Start: 08-05-2015 Cv strs tst xers&/or rx [...] Muniz Start: 08-04-2015 Hemoglobin glycosylated a1c Edilberto schmitt Start: 08-04-2015 Lipid panel Edilberto Zamora Start: 08-04-2015 Lipid panel Ericka Muniz Start: 08-04-2015 MICROALBUMIN/Urine Creat Ratio Edilberto Muñoz anand Start: 08-04-2015 Transferase alanine amino alt sgpt Edilberto Zamora Start: 08-04-2015 Transferase aspartate amino ast sgot Edilberto Zamora Start: 08-04-2015 Ericka Muniz Start: 07-24-2015 Chest x-ray Edilberto Zamora Start: 07-24-2015 Ecg routine ecg w/least 12 lds w/i&r Edilberto Zamora Plan of Treatment Date Care Activity Detail Author Start: 06-26-2025 Assay of prostate specific antigen total PSA total [facility] Start: 06-26-2025 Assay of testosteron e free Total and free testosterone panel by equilibrium dialysis [place] [facility] Start: 06-26-2025 Assay of testosteron e total Total and free testosterone panel by equilibrium dialysis [place] [facility] Start: 06-26-2025 Comprehensive metabo lic panel CMP [place] [facility] Start: 06-26-2025 Hemoglobin glycosyla ramses a1c Hgb A1c [place] [facility] Start: 06-26-2025 Lipid panel Lipid panel [facility] Start: 12-25-2024 Comprehensive metabo lic panel CMP [place] [facility] Start: 12-25-2024 Hemoglobin glycosyla ramses a1c Hgb A1c [place] [facility] Start: 12-25-2024 Lipid panel Lipid panel [facility] Start: 09-18-2024 Comprehensive metabo lic panel Comp [facility] Start: 09-18-2024 Hemoglobin glycosyla ramses a1c A1c [place] [facility] Start: 09-18-2024 Lipid panel Lipid panel [facility] Start: 03-16-2024 Assay of thyroid stimulating hormone tsh TSH [place] [facility] Start: 03-16-2024 Comprehensive metabo lic panel [facility] Start: 03-16-2024 Cyanocobalamin vitam in b-12 B12 level [facility] Start: 03-16-2024 Hemoglobin glycosyla ramses a1c [facility] Start: 03-16-2024 Lipid panel Lipid profile [facility] Start: 11-14-2023 Hemoglobin glycosyla ramses a1c A1c [facility] Start: 2023 Assay of prostate specific antigen total PSA total [facility] Start: 2023 Blood count complete automated CBC PLATELET COUNT; AUTOMATED [facility] Start: 2023 Comprehensive metabo lic panel CMP [facility] Start: 2023 Lipid panel Lipid panel [facility] Start: 07-28-2023 Comprehensive metabo lic panel CMP (comprehensive metabolic panel) [facility] Start: 07-28-2023 Hemoglobin glycosyla ramses a1c HEMOGLOBIN A1C [facility] Start: 07-28-2023 Lipid panel Lipid profile [facility] Start: 03-11-2023 Influenza vaccination Influenza Vacc ine (#1) [facility] Start: 01-25-2023 Assay of prostate specific antigen total PSA, total [facility] Start: 01-25-2023 Blood count complete automated CBC PLATELET COUNT; AUTOMATED [facility] Start: 01-25-2023 Comprehensive metabo lic panel CMP [facility] Start: 01-24-2023 Glucose quantitative blood xcpt reagent strip GLUCOSE [facility] Start: 01-24-2023 Hemoglobin glycosyla ramses a1c HEMOGLOBIN A1C [facility] Start: 01-24-2023 Lipid panel Lipid profile [facility] Start: 01-24-2023 Transferase alanine amino alt sgpt SGPT (ALT) [facility] Start: 07-21-2022 25 hydroxy includes fractions if performed VITAMIN D 25-HYDROXY [place] [facility] Start: 07-21-2022 Assay of parathormone PTH-INTACT B [facility] Start: 07-21-2022 Comprehensive metabo lic panel CMP (comprehensive metabolic panel) [facility] Start: 07-21-2022 Hemoglobin glycosyla ramses a1c HEMOGLOBIN A1C [place] [facility] Start: 07-19-2022 Lipid panel Lipid panel [place] [facility] Start: 05-04-2022 X-ray of left ankle ANKLE COMP LETE X-RAY 3 VIEWS [place] [facility] Start: 04-22-2022 MR Foot - right WO a nd W contrast IV [facility] Start: 04-22-2022 MRI of right foot wi th contrast MR foot RT wo/w con [facility] Start: 04-21-2022 MR Ankle - right WO and W contrast IV [facility] Start: 04-21-2022 MRI of right ankle w ith contrast MR ankle RT wo/w [facility] Start: 04-05-2022 [facility] Start: 04-05-2022 Blood count complete auto&auto difrntl wbc CBC w diff [place] [facility] Start: 04-05-2022 [facility] Start: 04-05-2022 Comprehensive metabo lic panel CMP [facility] Start: 04-05-2022 MRI of lower extremity MRI ankle and foot [place] [facility] Start: 04-05-2022 Sedimentation rate r bc non-automated ESR non-auto [facility] Start: 04-01-2022 Duplex scan of lower limb veins US venous duplex LE RT [facility] Start: 04-01-2022 US Lower extremity v ein - right [facility] Work Phone: Start: 03-16-2022 X-ray of left ankle ANKLE COMP LETE X-RAY 3 VIEWS [facility] Start: 03-16-2022 X-ray of left foot FOOT COMPLE TE X-RAY 3 VIEWS [facility] Start: 02-17-2022 Assay of prostate specific antigen total PSA total [facility] Start: 02-17-2022 Comprehensive metabo lic panel Comp [facility] Start: 02-17-2022 Hemoglobin glycosyla ramses a1c A1c [facility] Start: 02-17-2022 Lipid panel Lipid panel [facility] Start: 01-01-2022 Assay of glutamyltra se gamma GAMMA GT [facility] Start: 01-01-2022 Blood count complete automated CBC PLATELET COUNT; AUTOMATED [facility] Start: 01-01-2022 Comprehensive metabo lic panel CMP (comprehensive metabolic panel) [facility] Start: 01-01-2022 Hemoglobin glycosyla ramses a1c HEMOGLOBIN A1C [facility] Start: 09-17-2021 Cul bact xcpt urine blood/stool aerobic isol Wound culture and sensitivity [facility] Start: 09-17-2021 Dup-scan lxtr art/ar tl bpgs uni/lmtd study MARGA w/ segmental pressures and waveforms [facility] Start: 09-17-2021 Non-invas physiologi c std extremity art 2 level MARGA w/ segmental pressures and waveforms [facility] Start: 09-17-2021 Non-invasive physiol ogic study extremity 3 levls MARGA w/ segmental pressures and waveforms [facility] Start: 09-17-2021 Plain X-ray of toe TOES X-RAY 2-3 EWS [facility] Start: 08-18-2021 Blood count complete automated CBC & PLATELET COUNT; AUTOMATED [facility] Start: 08-18-2021 Comprehensive metabo lic panel CMP (comprehensive metabolic panel) [facility] Start: 08-18-2021 Hemoglobin glycosyla ramses a1c A1c [facility] Start: 08-18-2021 Lipid panel LIPID PROFILE [facility] Start: 07-19-2021 Assay of glutamyltra se gamma GAMMA GT [facility] Start: 07-19-2021 Basic metabolic pane l calcium total Chem 8 [facility] Start: 07-19-2021 Hemoglobin glycosyla ramses a1c HEMOGLOBIN A1C [facility] Start: 06-24-2021 Blood count complete automated CBC PLATELET COUNT; AUTOMATED [facility] Start: 06-24-2021 Comprehensive metabo lic panel Comp [facility] Start: 06-24-2021 Hemoglobin glycosyla ramses a1c A1c [facility] Start: 06-24-2021 Lipid panel Lipid panel [facility] Start: 03-12-2021 Assay of [facility]one [facility] Start: 03-12-2021 Assay of phosphorus inorganic Phosphorus, serum [facility] Start: 03-12-2021 Blood count complete automated CBC PLATELET COUNT; AUTOMATED [facility] Start: 03-12-2021 Comprehensive metabo lic panel CMP (comprehensive metabolic panel) [facility] Start: 03-12-2021 HbA1c (Bld) [Mass fraction] HEMOGLOBIN A1C [facility] Start: 03-12-2021 Hemoglobin glycosyla ramses a1c HEMOGLOBIN A1C [facility] Start: 12-25-2020 Creatinine measurement Creatinine mo nitoring [place] Start: 12-25-2020 Potassium monitoring Potassium monit oring [place] Start: 12-23-2020 Assay of prostate specific antigen total PSA total [facility] Start: 08-08-2020 Comprehensive metabo lic panel CMP (comprehensive metabolic panel) [facility] Start: 08-08-2020 HbA1c (Bld) [Mass fraction] HEMOGLOBIN A1C [facility] Start: 03-28-2020 Glucose quantitative blood xcpt reagent strip GLUCOSE 2 HR Post Prandial [facility] Start: 03-28-2020 HbA1c (Bld) [Mass fraction] HEMOGLOBIN A1C [facility] Start: 03-28-2020 Hepatic function panel LFT (li rosanne function test) [facility] Start: 03-24-2020 Annual Wellness Visi t (AWV) Annual Wellness Visit (AWV) [place], [place] Start: 03-11-2020 Influenza vaccination [place], [place] Start: 12-28-2019 End: 12-28-2019 Hospital Encounter [facility] Comment on above: SHOULDER ARTHROSCOPY ROTATOR CUFF REPAIR, POSSIBLE BICEPS TENDONDESIS Start: 12-28-2019 End: 12-28-2019 Hospital Encounter [facility] Comment on above: SHOULDER ARTHROSCOPY ROTATOR CUFF REPAIR, POSSIBLE BICEPS TENDONDESIS Start: 12-27-2019 Basic metabolic pane l calcium total Chem 8 [facility] Start: 12-27-2019 HbA1c (Bld) [Mass fraction] HEMOGLOBIN A1C [facility] Start: 11-27-2019 Comprehensive metabo lic panel Comp [facility] Start: 11-27-2019 HbA1c (Bld) [Mass fraction] A1c [facility] Start: 11-27-2019 Lipid panel Lipid panel [facility] Start: 08-28-2019 Basic metabolic pane l calcium total Chem 8 [facility] Start: 08-18-2019 Basic metabolic pane l calcium total Chem 8 [facility] Start: 08-18-2019 Gamma glutamyl transferase [Catalytic activity/Vol] GGT [facility] Start: 08-18-2019 HbA1c (Bld) [Mass fraction] HEMOGLOBIN A1C [facility] Start: 05-22-2019 Assay of prostate specific antigen total PSA total [facility] Start: 05-22-2019 Blood count complete automated CBC & PLATELET COUNT; AUTOMATED [facility] Start: 05-22-2019 Comprehensive metabo lic panel Comprehensive metabolic panel [facility] Start: 05-22-2019 Lipid panel Lipid panel [facility] Start: 05-22-2019 Urnls dip stick/tabl et rgnt auto w/o microscopy Urinalysis auto [facility] Start: 04-17-2019 Im adm prq id subq/i m njxs 1 vaccine Administration of single vaccine [place] [facility] Start: 04-13-2019 Assay of glutamyltra se gamma GAMMA GT [place] [facility] Start: 04-13-2019 Comprehensive metabo lic panel CMP (comprehensive metabolic panel) [place] [facility] Start: 04-13-2019 Hemoglobin A1c/Hemoglobin.total mass fraction (Bld) HEMOGLOBIN A1C [place] [facility] Start: 02-27-2019 Assay of prostate specific antigen total PSA total [place] [facility] Start: 02-27-2019 Blood count complete automated CBC & PLATELET COUNT; AUTOMATED [place] [facility] Start: 02-27-2019 Comprehensive metabo lic panel Comprehensive metabolic panel [place] [facility] Start: 02-27-2019 Hemoglobin A1c/Hemoglobin.total mass fraction (Bld) Hgb A1c [place] [facility] Start: 02-27-2019 Lipid panel Lipid panel [place] [facility] Start: 01-02-2019 Medical nutrition re-assmt&ivntj indiv ea 15 m Medical nutrition therapy; re-assessment and intervention, individual, [id number] with the patient, each 15 minutes [facility] Start: 09-26-2018 Medical nutrition re-assmt&ivntj indiv ea 15 m Medical nutrition therapy; re-assessment and intervention, individual, [id number] with the patient, each 15 minutes [facility] Start: 09-17-2018 Glucose mass conc GLUCOSE [facility] Start: 09-17-2018 Hemoglobin A1c/Hemoglobin.total mass fraction (Bld) HEMOGLOBIN A1C [facility] Start: 09-17-2018 Hepatic function panel Liver functio n panel [facility] Start: 07-27-2018 Medical nutrition re-assmt&ivntj indiv ea 15 m Medical nutrition therapy; re-assessment and intervention, individual, lgvp-fk-dump with the patient, each 15 minutes [facility] Start: 04-20-2018 Medical nutrition re-assmt&ivntj indiv ea 15 m Medical nutrition therapy; re-assessment and intervention, individual, lahj-ls-dynf with the patient, each 15 minutes [facility] Start: 03-15-2018 Glucose mass conc GLUCOSE [facility] Start: 03-15-2018 Hemoglobin A1c/Hemoglobin.total mass fraction (Bld) HEMOGLOBIN A1C [facility] Start: 01-18-2018 Medical nutrition re-assmt&ivntj indiv ea 15 m Medical nutrition therapy; re-assessment and intervention, individual, ekzh-cd-twbh with the patient, each 15 minutes [facility] Start: 12-13-2017 Hepatic function panel Liver functio n panel [facility] Start: 2014 Screening for malign ant neoplasm of colon Colon cancer screen colonoscopy [place], [place] Start: 2014 Shingles Vaccine (1 of 2) Shingles Vaccine (1 of 2) [place] Start: 2004 Diabetes screen Diabetes screen [place], [place] Start: 11-11-1983 DTaP/Tdap/Td vaccine (1 - Tdap) DTaP/Tdap/Td vaccine (1 - Tdap) [place] Start: 11-11-1983 Urine screening for protein Diabetes: Urine Protein Screening [facility] Start: 11-11-1979 HIV screening HIV screen [place], [place] Start: 1974 Glaucoma screening Diabetes: R etinopathy Screening [facility] Start: 1974 Lipid panel Lipid screen [place], [place] Start: 1970 Pneumococcal 0-64 ye ars Vaccine (1 of 1 - PPSV23) Pneumococcal 0-64 years Vaccine (1 of 1 - PPSV23) [place] Start: 1964 Creatinine measurement Creatinine mo nitoring [place] Start: 1964 Hemoglobin A1c measurement Diabetes: Hemoglobin A1C [facility] Start: 1964 Hepatitis C screening Hepatitis C sc reen [place] Start: 1964 Medicare Annual Well ness (AWV) Medicare Annual Wellness (AWV) [facility] Start: 1964 Potassium monitoring Potassium monit [place], [place] Start: 1964 Screening for malign ant neoplasm of colon [facility] Initiate Oxygen Ther apy Protocol Initiate Oxygen Therapy Protocol Respiratory Care Routine Daily until discontinued starting 12/28/2019 [place] Comment on above: Daily until disconti nued starting 12/28/2019 Patient Education [facility] Work Phone: Patient referral [facility] Work Phone: Phase I & II - meter ed glucose Phase I & II - metered glucose Point of Care Testing Routine As Needed until discontinued starting 12/28/2019 [place] Comment on above: As Needed until disc ontinued starting 12/28/2019 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 05-08-2024 hepatitis A and hepatitis B vaccine [facility]ia [facility] 05-08-2024 measles, mumps and rubella virus vaccine Cinthia Sarenza [facility] 05-08-2024 Seasonal trivalent influenza vaccine, adjuvanted, preservative free Cinthia Magana [facility] 08-05-2023 COVID-19, Moderna, 100mcg/0.5ml Ericka Muniz [facility] 08-05-2023 PCV20 Ericka Muniz [facility] 04-28-2022 COVID-19, Pfizer, 30mcg/0.3ml [facility] 04-28-2022 influenza, injectabl e, quadrivalent, contains preservative [facility] 04-28-2022 influenza virus vaccine, unspecified formulation Shay Patterson DO Work Phone: [facility] 12-05-2021 hepatitis A and hepatitis B vaccine Franky [facility] 10-19-2021 hepatitis B vaccine, adult dosage Franky [facility] [employer] [facility] 10-19-2021 zoster vaccine, live Franky [facility] 06-15-2021 COVID-19, Moderna, 100mcg/0.5ml [facility] [place] [facility] 10-14-2020 COVID-19, Moderna, 100mcg/0.5ml Edilberto [facility] [place] [facility] 09-12-2020 COVID-19, Moderna, 100mcg/0.5ml Edilberto [facility] [place] [facility] 04-08-2020 influenza virus vaccine, unspecified formulation; Translations: [Administration of influenza virus vaccine] EdilbertoMD.[facility] [place] [facility] 04-08-2020 influenza, high dose seasonal, preservative-free; Translations: [FLU VACC PRSV FREE INC ANTIG] [employer] 04-17-2019 influenza, injectabl e, quadrivalent, contains preservative; Translations: [FLU VACC 4 FRANCISCO 3 YRS PLUS IM] [employer] 04-17-2019 influenza, seasonal, injectable [employer] 04-17-2019 IMMUNIZATION ADMIN; Translations: [IMMUNIZATION ADMIN] [employer] 04-17-2019 Ericka Muniz [facility] 04-20-2018 influenza, seasonal, injectable; Translations: [FLU VACCINE 3 YRS & > IM] [employer] 04-20-2018 IMMUNIZATION ADMIN; Translations: [IMMUNIZATION ADMIN] [employer] 04-20-2018 Ericka Muniz [facility] 04-05-2017 influenza, seasonal, injectable; Translations: [FLU VACCINE 3 YRS & > IM] [employer] 04-05-2017 IMMUNIZATION ADMIN; Translations: [IMMUNIZATION ADMIN] [employer] 04-05-2017 Ericka Muniz [facility] 03-31-2016 influenza, seasonal, injectable; Translations: [FLU VACCINE 3 YRS & > IM] [employer] 03-31-2016 IMMUNIZATION ADMIN; Translations: [IMMUNIZATION ADMIN] [employer] 03-31-2016 Ericka Muniz [facility] [employer] Payers Date Payer Category Payer Self-pay 2022 Unknown 2021 Medicaid [id number] 2020 Medicare [facility] MEDICARE ADVANTAGE [employer] [facility] MEDICARE ADVANTAGE [id number] 2020-Present [address] [place] [address] [id number] 2019 Medicare [id number]. [id number] 2015 Unknown [id number] 2..840.1.466196.3.441 2015 Unknown EMMA ESTEVEZ [facility] MEDICAID xxxxxxxxxxx 2015-Present [phone] CLAIMS DEPARTMENT [address] [place] [address] xxxxxxxxxxx [id number]. [id number] 2014 Unknown [id number] 1964 Unknown [id number] 2..1.859983.3.579.2.903 1964 Unknown [id number] 20.1.561540.3.579.2.173 1964 Unknown [id number] 2.840.1.636686.3.579.2.173 1964 Unknown [id number] 2.840.1.536089.3.579.2.173 1964 Unknown [id number] 2.840.1.392680.3.579.2.173 1964 Unknown [id number] 2.840.1.980423.3.579.2.173 1964 Unknown [id number] 2.16.840.1.321449.3.579.2.173 1964 Unknown [id number] 2.16.840.1.321711.3.579.2.593 1964 Unknown [id number] 2.16.840.1.799173.3.579.2.593 1964 Unknown [id number] 2.16.840.1.290431.3.579.2.593 1964 Unknown [id number] 2.16.840.1.865007.3.579.2.196 1964 Unknown [id number] 2.16.840.1.419002.3.579.2.196 1964 Unknown [id number] 2.16.840.1.096885.3.579.2.196 1964 Unknown [id number] 2.16.840.1.046045.3.579.2.196 1959 Medicaid [id number] 2.16.840.1.624169.3.441 1959 Unknown [id number] 2.16.840.1.605138.3.441 Unknown Daniel / [id number] Unknown [id number] 2.16.840.1.258228.3.579.2.531 Unknown [id number] 2.16.840.1.904961.3.579.2.531 Unknown [id number] 2.16.840.1.557368.3.579.2.531 Social History Date Type Detail Facility Start: [place] [facility] Start: 1-2 cups a [address] [facility] Start: 12-18-2019 End: 12-27-2022 Tobacco smoking status RIIS Current every day smoker [place] History of tobacco use Cigarette Smoker [place] Start: 12-18-2019 End: 12-27-2022 Cigarettes smoked current (pack per day) - Reported [place] Start: 12-18-2019 End: 12-27-2022 Alcohol intake Current drinker of alcohol (finding) [place] Start: 12-17-2019 Alcohol Comment 3X WEEKLY [place] Start: 1965 Sex Assigned At Not on file [place] Exposure to SARS-CoV -2 (event) Unable to assess [place] Start: 01-01-2020 Tobacco use and exposure Never used [place] Exposure to SARS-CoV -2 (event) Not sure [place] Start: *Tobacco [employer]wip Start: 04-01-2022 End: 08-14-2024 Tobacco smoking status NHIS Smoker (finding) [facility] Start: 1965 Sex Assigned At Male F [facility] Tobacco smoking status No Smokin g Status Entered [facility] Start: 12-27-2022 Sex Assigned At Male F [facility] Start: 12-23-2022 Tobacco Comment 11-20 cigs a day [facility] Start: 12-23-2022 Alcohol Comment 3-4 drinks 4+ times a week. Caffine intake: 2-3 cups per day [facility] Start: 1/2 ppd [employer] Start: 3 or 4 per day [employer] Start: 2-3 cups a day [employer] Start: 3/4 ppd [employer] Start: 0-2 per day [employer] Start: 07-20-2024 End: 08-14-2024 Sex Male (finding) [facility] Medical Equipment Procedure Code Equipment Code Equipment Origin al Text Equipment Identifier Dates Palermo Sut Corks crew Bi[employer] 5.5mm [id number] Start: 12-28-2019 Palermo Suture Swivelock 4.75x19.1 Biocomposite Min 5ea [id number] Start: 12-28-2019 Button Endoscopi c Bicep 2.6x12mm [id number] Start: 12-28-2019 Clinical Notes 04-14-2022 to 07-19-2024 Telephone Encounter - Shon See - 08/09/2023 9:21 AM ESTTelephone Encounter - Shon See - 08/09/2023 9:21 AM EST Note Date & Type Note Facility 07-19-2024 Procedure note [facility] enter 12-03-2023 Hospital Discharge instructions Additional Instructions Sutures out in 7 to 10 days [facility] Work Phone: 08-09-2023 Telephone encounter Note Patient called stating he fell in the bathroom and has a Q-tip jammed in his ear that will not come out. Per Kaur patient needs to come to [place] today at 2:30 PM. Patient states he has another appointment and does not think that will work for him. He states he will be calling his other doctor to coordinate. [facility] 08-09-2023 Miscellaneous Notes Patient called stating he fell in the bathroom and has a Q-tip jammed in his ear that will not come out. Per Kaur patient needs to come to [place] today at 2:30 PM. Patient states he has another appointment and does not think that will work for him. He states he will be calling his other doctor to coordinate. documented in this encounter [facility] 07-28-2022 Note PROCEDURE: XR ANKLE RT [...] authenticated by: SASHA FLAHERTY Date: 2022-07-28 16:42 [facility] 07-28-2022 Note PROCEDURE: XR ANKLE RT MIN [...] authenticated by: SASHA FLAHERTY Date: 2022-07-28 16:42 [facility] 06-24-2022 Note PROCEDURE: XR ANKLE RT MIN [...] authenticated by: TESS JHAVERI Date: 2022-06-24 06:20 [facility] 06-24-2022 Note PROCEDURE: XR ANKLE RT MIN [...] authenticated by: TESS JHAVERI Date: 2022-06-24 06:20 [facility] 05-05-2022 Progress note Note Date/Time May 05, 2022 2:50pm [facility] [address] [place] [address] Wound Center Provider Note Signed Patient: Geremias Melchor MR#: [id number] : 1965 Acct:[id number] Age/Sex: 56 / M Copies to: NON STAFF Fariha Novak APRN~ HPI Date of Visit Date of Visit: Date of Service: 05/05/2022 Time of Service: 14:47 Narrative HPI: 04/14/22 Geremias is a 56-year-old male presenting to [facility] wound care program for an initial visit [...] is not per se happy with his rippler in [place] and therefore I did give him the name of a local rippler who could address his concerns with Charcot [...] wound start?: March 2022 Mode of Arrival/ Fuel Attendant: Personal vehicle Lives with:: Alone Appetite Description: [...] Appearance: Beefy Red, Epithelial Tissue or Bridge, [place] and Yellow Percent of Wound Bed Granulated/Red: [...] <Electronically signed by RADHA Novak> 05/05/22 1450 [facility] Work Phone: [phone]) 591-503410-05-2022 Progress note Author Fariha Novak [facility] April 14, 2022 2:46pm Note Date/Time April 14, 2022 2: 46pm [facility] [address] [place] [address] Wound Center Provider Note Signed Patient: Geremias Melchor MR#: [id number] : 1965 Acct:[id number] Age/Sex: 56 / M Copies to: NON STAFF Fariha Novak, SEARCH LEAD~ HPI Date of Visit Date of Visit: Date of Service: 04/14/2022 Time of Service: 14:37 Narrative HPI: 04/14/22 Geremias is a 56-year-old male presenting to [facility] wound care program for an initial visit [...] is not per se happy with his rippler in [place] and therefore I did give him the name of a local rippler who could address his concerns with Charcot [...] wound start?: March 2022 Mode of Arrival/ Fuel Attendant: Personal vehicle Lives with:: Alone Appetite Description: Within Normal Limits Who helps w/ dressing change?: Self Smoking Status: Current every day smoker PMFSH Vaccinated for COVID-19?: Yes Medical History (Updated 04/14/22 @ 14:45 by Fariha Novak APRN) Diabetes Hyperlipidemia Hypertension Neuropathy Surgical History H/O hernia repair Family History (Updated 04/14/22 @ 14:36 by Jennifer Hitchcock, BARBARA) Family/Other Diabetes Social History Smoking Status: Current [...] w/o penetration to deeper layers Bed Appearance: [place] and Yellow Percent of Wound Bed Granulated/Red: 90 Percent of Devitalized: 10 Length (cm): 0.5 Width (cm): 0.6 Depth (cm): 0.1 CM Sq: 0.300 Surrounding Tissue Appearance: Callous Surrounding Tissue Temp: Warm Drainage Amount: Small Drainage Description: Serosanguineous Drainage Odor: No Odor Left Plantar Great Toe: Type: Diabetic Ulcer Diabetic Ulcer Grading: Superficial ulcer of skin w/o penetration to deeper layers Bed Appearance: [place] and Yellow Percent of Wound Bed Granulated/Red: 50 Percent of Devitalized: 50 Length (cm): 2.3 Width (cm): 1.5 Depth (cm): 0.1 CM Sq: 3.450 Surrounding Tissue Appearance: Callous Surrounding Tissue Temp: Warm Drainage Amount: Small Drainage Description: Serosanguineous Drainage Odor: No Odor Right Plantar Great Toe: Type: Diabetic Ulcer Diabetic Ulcer Grading: Superficial ulcer of skin w/o penetration to deeper layers Bed Appearance: [place] and Yellow Percent of Wound Bed Granulated/Red: 10 Percent of Devitalized: 90 Length (cm): 2.1 Width (cm): 1.1 Depth (cm): 0.1 CM Sq: 2.310 Surrounding Tissue Appearance: Callous Surrounding Tissue Temp: Warm Drainage Amount: Small Drainage Description: Serosanguineous Drainage Odor: No Odor Right Posterior Heel: Type: Diabetic Ulcer Diabetic Ulcer Grading: Superficial ulcer of skin w/o penetration to deeper layers Bed Appearance: [place] and Yellow Percent of Wound Bed Granulated/Red: [...] <Electronically signed by RADHA Novak> 04/14/22 1446 [facility] Work Phone: Evaluation + Plan note No data available for this section [facility] information available [facility] Work Phone: Evaluation note* Diagnosis Onset Date Resolution Status Diabetic foot ulcer acute Diabetes chronic Hyperlipidemia chronic Neuropathy chronic Tobacco use chronic [facility] Work Phone: Evaluation note* Diagnosis Onset Date Resolution Status Diabetes chronic Diabetic foot ulcer chronic Hyperlipidemia chronic Neuropathy chronic Tobacco use chronic [facility] Work Phone: Evaluation note* Diagnosis Onset Date Resolution Status Diabetes chronic Hyperlipidemia chronic Neuropathy chronic Tobacco use chronic Diabetic foot ulcer resolved [facility] Work Phone: Hospital Discharge instructions Additional Instructions Return for worsening symptoms Follow-up with wound care and podiatry [facility] Work Phone: Hospital Discharge instructions No data available for this section [facility] Additional Instructions Continue good wound care until completely healed [facility] Work Phone: Progress note Author Fariha Novak [facility] May 27, 2022 2:46pm Note Date/Time May 27, 2022 2:46pm [facility] [address] [place] [address] Wound Center Provider Note Signed Patient: Geremias Melchor MR#: [id number] : 1965 Acct:[id number] Age/Sex: 56 / M Copies to: NON STAFF Fariha Novak, SEARCH LEAD~ HPI Date of Visit Date of Visit: Date of Service: 05/27/2022 Time of Service: 14:43 Narrative HPI: 04/14/22 Geremias is a 56-year-old male presenting to [facility] wound care program for an initial visit [...] is not per se happy with his rippler in [place] and therefore I did give him the name of a local rippler who could address his concerns with Charcot [...] wound start?: March 2022 Mode of Arrival/ Fuel Attendant: Personal vehicle Lives with:: Alone Appetite Description: [...] 10 Dictated By: Fariha Novak APRN DD/ 144 Signed By: <Electronically signed by RADHA Novak> 05/27/22 144 [facility] Work Phone: Progress note No data available for this section [facility] Summary Purpose Family History Relationship Condition Age at Onset Recorded Date/T shannan family member Diabetes mellitus Unknown Advance Directives Documents on File Type Date Recorded Patient Port Engineer Expl anation Advance Directives and Living Will Power of Temporary Receptionist Documents on File Type Date Recorded Patient Port Engineer Expl anation Advance Directives and Living Will Power of Temporary Receptionist Documents on File Type Date Recorded Patient Port Engineer Expl anation ACP-Advance Directive ACP-Power of Temporary Receptionist Advance Directive Response Recorded Date/ Time Advance [...] for any questions regarding your surgery. Call [phone] forurgent questions after 5PM until 8AM 10. [...] Procedures MRI SHOULDER RIGHT WO CONTRAST Mignon Greenwood APRN - DEPUTY SHERIFF/INVESTIGATOR [address] [place] [address] Status Reason Specialty Diagnoses / Procedures Referre d By Contact Referred To Contact Open Radiology Diagnoses Right knee pain, unspecified chronicity Procedures MRI KNEE RIGHT WO CONTRAST Mignon Greenwood APRN - DEPUTY SHERIFF/INVESTIGATOR [address] [place] [address] Chief Complaint and Reason for Visit Chief [...] Hyperlipidemia Neuropathy Tobacco use Diabetic foot ulcer Chief Complaint cut above left eye Chief Complaint cut above left eye suture removal Chief Complaint Admit Date i10 i51.7 r06.02 July 19, 2024 1: 12pm i10 i51.7 r06.02 July 19, 2024 5: 53pm Chief Complaint Admit Date i10 i51.7 r06.02 July 19, 2024 1: 12pm i10 i51.7 r06.02 July 19, 2024 5: 53pm Ref: Dr. Brooks, [facility] August 14 3:04pm Additional Source Comments (unrecognized sect ion and content) No Status Records FoundNo Status Records FoundNo Status Records FoundNo Status Records FoundNo Status Records FoundNo Status Records FoundNo Status Records Found INFORMATION SOURCE (unrecogn ized section and content) DATE CREATED AUTHOR 11/15/2018 [facility] DATE CREATED AUTHOR AUTHOR'S ORGANIZ ATION 03/28/2020 [facility] DATE CREATED AUTHOR AUTHOR'S ORGANIZ ATION 06/21/2020 [facility] DATE CREATED AUTHOR AUTHOR'S ORGANIZ ATION 2022 [facility] DATE CREATED AUTHOR AUTHOR'S ORGANIZ ATION 06/18/2023 [facility] DATE CREATED AUTHOR AUTHOR'S ORGANIZ ATION 11/29/2024 [facility] DATE CREATED AUTHOR AUTHOR'S ORGANIZ ATION 12/22/2024 [facility] Reason for Visit (unrecogniz ed section and content) Status Reason Specialty Diagnoses / Procedures Referre d By Contact Referred To Contact Diagnoses Unspecified rotator cuff tear or rupture of right shoulder, not specified as traumatic RIGHT SHOULDER ROTATOR CUFF TEAR Procedures FL SHLDR ARTHROSCOP,SURG,W/ROTAT CUFF REPR SHOULDER ARTHROSCOPY ROTATOR CUFF REPAIR, POSSIBLE BICEPS TENDONDESIS Tess Escalona MD [address] [place] [place] [id number] [facility] Status Reason Specialty Diagnoses / Procedures Referre d By Contact Referred To Contact Closed Radiology Diagnoses Pain in right shoulder Procedures HC MRI-UPPER EXT JNT WO CONT Tess Escalona MD [address] [facility] [address] [place] [address] [facility] [address] [place] [address] Status Reason Specialty Diagnoses / Procedures Referre d By Contact Referred To Contact Closed Radiology Diagnoses Pain in right knee Procedures [facility] MRI LOWER EXTREM JT, W/O CONTRAST Mignon Grenewood, RADHA - DEPUTY SHERIFF/INVESTIGATOR [address] [place] [address] [facility] [address] [place] [address] Care Teams (unrecognized sec tion and content) [...] Active Fariha Novak APRN Attending Provider Active Export Administrator Relationship Specialty Start Date End Date Shay Han, [address] [place] [address] PCP - Daniel WANG 12/09/22 Jignesh Muniz MD [address] [facility] [address] [place] [address] PCP - General Family Medicine 12/27/22 Team Status: Active Member Role Status Dates Ericka Muniz MD Primary Care Provider Active Team Status: Inactive Member Role Status Dates Mark Upton APRN Emergency Provider Active Start: December 03, 2023 End: December 03, 2023 Ericka Muniz MD Primary Care Provider Active Sta rt: December 03, 2023 End: December 03, 2023 Team Status: Inactive Member Role Status Dates Ericka Muniz MD Primary Care Provider Active Sta rt: December 14, 2023 End: December 14, 2023 Missy Escobedo [facility] Emergency Provider Active Start: December 14, 2023 End: December 14, 2023 Team Status: Inactive Member Role Status Dates Ericka Muniz MD Primary Care Provider Active Sta rt: July 19, 2024 End: July 19, 2024 BETH Mccabe Attending Provider Active Start: July 19, 2024 End: July 19, 2024 Team Status: Active Member Role Status Dates Ericka Muniz MD Primary Care Provider Active Sta rt: July 19, 2024 BETH Mccabe Other Provider Active St art: July 19, 2024 Carlos Ware MD Attending Provider Active Start: July 19, 2024 Team Status: Inactive Member Role Status Dates Ericka Muniz MD Primary Care Provider Active Sta rt: August 14, 2024 End: August 14, 2024 Harjinder Shepherd MD Attending Provider Active Start: August 14, 2024 End: August 14, 2024 Goals (unrecognized section and content) Goals may be documented in a n alternate sectionGoals may be documented in an alternate sectionGoals may be documented in an alternate sectionGoals may be documented in an alternate sectionGoals may be documented in an alternate section No data available for this sectionGoals may be documented in an alternate sectionGoals may be documented in an alternate sectionGoals may be documented in an alternate sectionGoals may be documented in an alternate section FOR RECORDS PERTAINING TO PATIENTS WHO [...] BE BASED ON THE PRIMARY CLINICAL RECORDS. [facility]. provides no warranty or guarantee of the accuracy or completeness of information in this document.
--- NOTE | 2025-03-05 13:15 | XR_ITS ---
The [address] [address] Patient Name: GEREMIAS ARAYA MRN: [id number] date: 1965 Sex: M Assigned Patient Location: [facility] Current Patient Location: Accession/Order Number: [id number] Exam Date: 03/05/2025 13:00 Report Date: 03/05/2025 14:00 At the request of: NAYLA OAKES DPSarina Procedure: XR foot [place] min 3V Bilateral foot series 3 views each Reason for exam: Chronic ulcers to feet. XR/XR foot [place] min 3V IMPRESSION: Right foot series 08/15/2024. FINDINGS: Right foot: Diffuse soft tissue swelling is present. Hardware is seen involving the ankle and hindfoot similar configuration to the prior study without evidence of hardware complication. There is associated moderate degenerative change. No bony erosions. No plain film evidence of osteomyelitis. No acute fracture. Left foot: Soft tissue swelling is present. No acute bony process is seen. Mild scattered degenerative changes without bony erosions. No plain film evidence of osteomyelitis. IMPRESSION: Bilateral soft tissue swelling without acute bony process or plain film evidence of osteomyelitis. Degenerative changes involving both feet with hardware fixation involving the right ankle mortise and hindfoot. No hardware complication is noted. Impression dictated by: Dionte Torres Jr., D.O. 03/05/2025 2:00 PM Dictation Location: [facility] Electronically authenticated by: [id number] Y Date: 03/05/2025 14:00
== END 2025-03-05 12:49 | disposition home or self-care (01) ==
LOC: RAD 12:51
PROVIDERS: Visit Provider Podiatrist Foot & Ankle Surgery
DX: L97.519 Non-pressure chronic ulcer of other part of right foot with unspecified severity (principal); L97.529 Non-pressure chronic ulcer of other part of left foot with unspecified severity; M25.475 Effusion, left foot; M25.474 Effusion, right foot
CPT/HCPCS: 73630

== ENCOUNTER 2025-03-05 13:20 | Outpatient (OUT) | payer MEDICARE, MEDICAID, SELFPAY ==
--- OUTSIDE RECORDS SUMMARY | 2025-03-05 13:23 | XMS_ITS | Encounter Summary ---
Author Organization [facility] Address [address] [place] [address] Care Team Providers Care Director Security Management Name Role Phone GuilleShay levi Lucina DO Unavailable [phone] Jignesh Muniz INVESTMENT EXECUTIVE Primary Care Provider [phone] Encounter Details Date Type Department Care Team (Late st Contact Info) Description 02/08/2023 Orders Only [facility] [address] [place] [phone] Sydnie Nagel LPN Social History Tobacco Use [...] [facility] [address] [place] [address] Kimmie Yarbrough MD [address] [place] [address] documented as of this encounter Visit Diagnoses Not on filedocumented in this encounter Care Teams Director Security Management Relationship Specialty Start Date End Date Shay Han DO [address] [place] [address] PCP - Daniel WANG 12/09/22 08/10/23 Jignesh Muniz NP [address] [facility] [address] [place] [address] PCP - General Family Medicine 12/27/22 documented as of this encounter
--- OUTSIDE RECORDS SUMMARY | 2025-03-05 13:23 | XMS_ITS | Encounter Summary ---
Author Organization [facility] Address [address] [place] [address] Care Team Providers Care Insurance Specialist Name Role Phone Shay Han DO Unavailable [phone] Jignesh Muniz INDUSTRIAL ROBOTICS MECHANIC Primary Care Provider [phone] Encounter Details Date Type Department Care Team (Late Contact Info) Description 12/23/2022 Abstract [facility] [address] [facility] [address] [place] [phone] Rachid Crowe DPM [address] [facility] [address] [place] [address] Social History Tobacco Use Types Packs/Day Years [...] [facility] [address] [place] [address] Kimmie Yarbrough MD [address] [place] [address] documented as of this encounter Visit Diagnoses Not on filedocumented in this encounter Care Teams Insurance Specialist Relationship Specialty Start Date End Date Shay Han DO [address] [place] [address] PCP - Daniel WANG 12/09/22 08/10/23 Jignesh Muniz, INDUSTRIAL ROBOTICS MECHANIC [address] [place] [address] PCP - General Family Medicine 12/27/22 documented as of this encounter
--- OUTSIDE RECORDS SUMMARY | 2025-03-05 13:23 | XMS_ITS | Clinical Summary ---
Author Organization [facility] Address [address] [facility] [address] [place] [address] Care Team Providers Care General Pediatrician Name Role Phone Manfred Muniz MD Primary Care Provider [phone] Allergies No known active allergies Medications furosemide (LASIX) 20 MG tablet Take 20 mg by mouth daily Active gabapentin (NEURONTIN) 800 MG tablet Take 800 mg by mouth 3 times daily. Active metFORMIN (GLUCOPHAGE) 500 MG tablet Take 500 mg by mouth three times daily Active Cyanocobalamin (VITAMIN B-12) 5000 MCG TBDP Take by mouth daily Active [place]-3 Fatty Acids (FISH OIL) 1200 MG CAPS [...] on file Medical Devices Implanted Type Area Writer Editor Device Identifier Shelf Expiration Date Model / Serial / Lot Dugspur Sut Corkscrew Biocomposite 5.5mm Implanted:Qty: 1 on 12/28/2019 by Farzad Escalona MD at [facility] Right: Shoulder [employer] 05/10/2020 [id number] / / [id number] Dugspur Suture Swivelock 4.75x19.1 Biocomposite Min 5ea Implanted:Qty: 1 on 12/28/2019 by Farzad Escalona MD at [facility] Right: Shoulder [employer] 06/09/2023 [id number] / / [id number] Button Endoscopic Bicep 2.6x12mm Implanted:Qty: 1 on 12/28/2019 by Farzad Escalona MD at [facility] Fastener Right: Shoulder [employer] 01/08/2024 [id number] / / [id number] Insurance MEDICARE MEDICAID [place] Care Teams General Pediatrician Relationship Specialty Start Date End Date Manfred Muniz MD [address] [place] [address] PCP - General Internal Medicine 12/21/19
--- OUTSIDE RECORDS SUMMARY | 2025-03-05 13:23 | XMS_ITS | Clinical Summary ---
Author Organization [facility] Address [address] [place] [address] Care Team Providers Care Tellers Supervisor Name Role Phone Jignesh Muniz NP Primary Care Provider [phone] Allergies No known active allergies Medications ammonium [...] [facility] [address] [place] [address] Kimmie Yarbrough MD [address] [place] [address] Health Maintenance Due Date Last Done Comments CT Colonography 1965 Colonoscopy 1965 Colorectal Cancer Screening 1965 FIT-DNA 1965 FIT 1965 FOBT 1965 Sigmoidoscopy 1965 Influenza Vaccine (#1) 2025 05/08/2024, 2021, 04/30/2021 Insurance [employer] MEDICARE ADVANTAGE MEDICAID [place] Care Teams Tellers Supervisor Relationship Specialty Start Date End Date Jignesh Muniz NP PCP - General Family Medicine 12/27/22
--- OUTSIDE RECORDS SUMMARY | 2025-03-05 13:23 | XMS_ITS | Encounter Summary ---
Author Organization [facility] Address [address] [facility] [place] [address] Care Team Providers Care Center Mgr Name Role Phone Shay Han DO Unavailable [phone] Jignesh Muniz BENCH PRESS OPERATOR Primary Care Provider [phone] Encounter Details Date Type Department Care Team (Late st Contact Info) Description 02/25/2023 Orders Only [facility] [address] [facility] [address] [address] [place] [phone] A, Unknown Practice [address] [place] [address] Social History Tobacco Use Types Packs/Day Years [...] [facility] [address] [place] [address] Kimmie Yarbrough MD [address] [place] [address] documented as of this encounter Procedures Procedure Name Priority Date/Time Associated Diagnosis Comments SCANNED LABS Routine 02/23/2023 1:53 PM EDT documented in this encounter Results * SCANNED LABS (02/23/2023 1:53 PM EDT) us Unknown Practice A LAB CHG PERFORMABLES Final Re sult documented in this encounter Visit Diagnoses Not on filedocumented in this encounter Care Teams Center Mgr Relationship Specialty Start Date End Date Shay Han DO [address] [place] [address] PCP - Daniel WANG 12/09/22 08/10/23 Jignesh Muniz, BENCH PRESS OPERATOR [address] [place] [address] PCP - General Family Medicine 12/27/22 documented as of this encounter
--- OUTSIDE RECORDS SUMMARY | 2025-03-05 13:23 | XMS_ITS | Encounter Summary ---
Author Organization [facility] Address [address] [facility] [place] [address] Care Team Providers Care Bell Maker Name Role Phone Shay Han DO Unavailable [phone] Jignesh Muniz TELEPHONIC CASE MANAGER Primary Care Provider [phone] Encounter Details Date Type Department Care Team (Late st Contact Info) Description 02/15/2023 Orders Only [facility] [address] [facility] [address] [place] [address] A, Unknown Practice [address] [place] [address] Social History Tobacco Use Types Packs/Day Years [...] [facility] [address] [place] [address] Kimmie Yarbrough MD [address] [place] [address] documented as of this encounter Procedures Procedure [...] on filedocumented in this encounter Care Teams Bell Maker Relationship Specialty Start Date End Date Shay Han DO [address] [place] [address] PCP - Daniel WANG 12/09/22 08/10/23 Jignesh Muinz, TELEPHONIC CASE MANAGER [address] [place] [address] PCP - General Family Medicine 12/27/22 documented as of this encounter
--- OUTSIDE RECORDS SUMMARY | 2025-03-05 13:23 | XMS_ITS | Clinical Summary ---
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
--- OUTSIDE RECORDS SUMMARY | 2025-03-05 13:23 | XMS_ITS | Encounter Summary ---
Author Organization [facility] Address [address] [facility] [address] Care Team Providers Care Hotbed Transfer Operator Name Role Phone Shay Han DO Unavailable [phone] Jignesh Muniz LANGUAGE INTERPRETER Primary Care Provider [phone] Encounter Details Date Type Department Care Team (Late st Contact Info) Description 02/28/2023 Orders Only [facility] [address] [address] [place] [address] A, Unknown Practice [address] [place] [address] Social History Tobacco Use Types Packs/Day Years [...] [facility] [address] [place] [address] Kimmie Yarbrough MD [address] [place] [address] documented as of this encounter Procedures Procedure [...] on filedocumented in this encounter Care Teams Hotbed Transfer Operator Relationship Specialty Start Date End Date Shay Han DO [address] [place] [address] PCP - Daniel WANG 12/09/22 08/10/23 Jignesh Muniz, LANGUAGE INTERPRETER [address] [place] [address] PCP - General Family Medicine 12/27/22 documented as of this encounter
--- OUTSIDE RECORDS SUMMARY | 2025-03-05 14:23 | XMS_ITS | CCD ---
Author Organization Unknown Care Team Providers Care Entry Level Project Coordinator Name Role Phone Unavailable Primary Care Provider Unavailabl e Unavailable Chronic Care Management Unavaila ble Summary Purpose DataExchange Insurance Providers Payer name Policy type / Coverage type Covered libertarian ID Effective Begin Date Effective End Date [facility] [id number] Unknown Unknown Family History Family History data not found Medication Administered No Medication Administered data Reason For Visit No Reason For Visit data Medical Equipment No Medical Equipment data Advance Directives No Advance Directive data
== END 2025-03-05 13:21 | disposition home or self-care (01) ==
LOC: WC 13:21
PROVIDERS: Visit Provider Physician Assistant
DX: E11.621 Type 2 diabetes mellitus with foot ulcer (principal); L97.519 Non-pressure chronic ulcer of other part of right foot with unspecified severity; L97.529 Non-pressure chronic ulcer of other part of left foot with unspecified severity; M25.475 Effusion, left foot; M25.474 Effusion, right foot; L97.415 Non-pressure chronic ulcer of right heel and midfoot with muscle involvement without evidence of necrosis; L97.426 Non-pressure chronic ulcer of left heel and midfoot with bone involvement without evidence of necrosis
CPT/HCPCS: 11043; 73630

== ENCOUNTER 2025-03-13 11:10 | Outpatient (OUT) | payer MEDICARE, MEDICAID, SELFPAY ==
--- OUTSIDE RECORDS SUMMARY | 2024-08-15 11:00 | XMS_ITS ---
Author Organization [facility] in [place] Address [address] [place] [address] Care Team Providers Care Automatic Coin Machine Mechanic Name Role Phone None, Unknown or Primary Care Provider Unavailab Montrell Valles Unavailable [phone] Allergies No Known Allergies REASON FOR VISIT [...] Problem Status W/U Status Risk Notes Problem [id number] Charcot's joint, right ankle and foot (M14.671) Active confirmed Problem 399379434 Non-pressure chronic ulcer of other part of left foot with fat layer exposed (L97.522) Active confirmed Encounters Encounter Location Date Provider Diagnosis [facility] [place] (PODIATRY) [address] [place] [address] [place] [address] 08/15/2024 Montrell Chadwick Charcot's joint, right ankle [...] I did discuss potential utilization of a [place] boot which he adamantly declined. Although there [...] I did discuss potential utilization of a [place] boot which he adamantly declined. Although there [...] * Rachid MELCHOR RDOB:1965 (58 yo M)Acc No.[id number]:08/15/2024 Follow Up Patient: Rachid LUJAN Provider: Gigi Chadwick DPM, MS :1965 A ge:58 Y S ex:Male Date:08/15/2024 [facility] [address] [place], [id number] Pcp:Unknown or None Check In:03:44 PM ESTCheck [...] foot Modified On:04/21/2023U Status:confirmed E11.9 DM2 (diabetes [facility], type 2) Modified On:04/21/2023U Status:confirmed F10.239 Alcohol [...] * Provider: Gigi Chadwick DPM, MS Date: 0 08/15/2024 Generated for Giorgi rinaldi/Tiffanie/Darnellitting on: 0 03/13/2025 11:13 AM EDT History and Physical Notes * HPI [...]
--- OUTSIDE RECORDS SUMMARY | 2024-08-15 12:06 | XMS_ITS ---
Author Organization [facility] in [place] Address [address] [place] [address] Care Team Providers Care Slipcover Cutter Name Role Phone None, Unknown or Primary Care Provider Unavailab Montrell Valles Unavailable [phone] REASON FOR VISIT meds Medications Medication SIG (Take, Route, Fr equency, Duration) Notes Start Date End Date Status Cephalexin 500 MG 1 capsule Orally tid for 14 days 08/15/2024 Active Encounters Encounter Location Date Provider Diagnosis [facility] (PODIATRY) [address] [place] [address] [place] [address] 08/15/2024 Montrell Chadwick Plan Of Treatment Medication Medication Name Sig Start Date Stop Date Notes Cephalexin 500 MG 1 capsule Orally tid for 14 days 025 Progress Notes * Rachid MELCHOR RDOB:1965 (58 yo M)Acc No.[id number]:08/15/2024 Patient: Cesar FERNÁNDEZ Rachid Shah :1965 A ge:58 Y S ex:Male Address:[address] [place] [address] * Refills Start Cephalexin Capsule, 500 MG, Orally, 42 Capsule, 1 capsule, tid, 14 days * true * Date: Generated for Amadeoi ng/Faxing/eTransmitting on: 0 03/13/2025 11:13 AM EDT
--- OUTSIDE RECORDS SUMMARY | 2025-03-13 11:13 | XMS_ITS | Patient Health Record ---
Author Organization [facility] [place] Address [address] [place] [address] Care Team Providers Care Fish Seiner Name Role Phone None, Unknown or Primary Care Provider Unavailab Nayla Valles Unavailable [phone] Allergies No Known Allergies Results Component Value Reference Range Notes CA segmental UE or [place] (N ot yet reviewed by provider) Interpretation: Performing Lab: Notes/Report: Source Facility: [place] [address] Cardiology Report Signed Patient: GEREMIAS MELCHOR MR#: [id number] : 1965 Acct:[id number] Age/Sex: 58 / M ADM Date: 10/31/24 Loc: CARD Attending Dr: Rachana GE Ordering Physician: Rachana Jean Date of Service: 10/31/24 Procedure(s): CA segmental UE or [place] Accession Number(s): [id number] cc: Rachana Jean; Physician,Non-Staff M.DMelva [facility] [place] Test Date: 2024-10-31 Pat Name: GEREMIAS MELCHOR Department: Room: - Gender: Male Neon Sign Maker: : 1965 Requested By: Rachana Jean Order Number: [id number] Kellie MD: RAH MORAN M.D. Interpretive Statements Summary of the findings: Right leg: MARGA= 1.15; TBI= 0.9. Doppler waveforms demonstrate multiphasic flow at the posterior tibial, and dorsalis pedis arteries. Left leg: MARGA= 1.07; TBI= 1.1. Doppler waveforms demonstrate multiphasic flow at the posterior tibial, and dorsalis pedis arteries. Segmental pressures: Segmental pressures are within normal bilaterally (left infrapopliteal pressure difference is not believed to represent significant PAD given normal other indices). Pulse volume recordings: PVRs at the high thigh, below knee, and ankle levels show normal waveforms. Conclusion: Right and left ankle-brachial indices are suggestive of normal overall arterial flow at rest. Toe-brachial indices are not suggestive of PAD. Segmental pressures show no significant segmental disease. Pulse volume recordings indicate good overall resting arterial flow. Waveform analysis suggests normal bilateral arterial flow. Overall normal physiologic examination at rest. Electronically Signed On 10-31-2024 18:02:36 EDT by RAH MORAN M.D. Dictated By: RAH MORAN Signed By: 10/31/24180110/31/241801 DD/ 1425 TD/TT: Integrated Marketing Specialist: [place] [address] Cardiology Report Signed Patient: GEREMIAS MELCHOR MR#: [id number] : 1965 Acct:[id number] Age/Sex: 58 / M ADM Date: 10/31/24 Loc: CARD Attending Dr: Rachana GE Ordering Physician: Rachana Jean Date of Service: 10/31/24 Procedure(s): CA seg mental UE or [place] Accession Number(s): [id number] cc: Rachana Jean; Physician,Non-Staff Zari [facility] [place] Test Date: 2024-10-31 Pat Name: GEREMIAS Garcia Department: Room: - Gender: Male Neon Sign Maker: : 1965 Requ ested By: Rachana Jean Order Number: [id number] Reading MD: RAH MORAN M.D. Interpretive Statements Summary of the findings: Right leg: MARGA= 1.15 ; TBI= 0.9. Doppler waveforms demonstrate multiphasic flow at the posterio r tibial, and dorsalis pedis arteries. Left leg: MARAG= 1.07; TBI= 1.1. Doppler waveforms demonstrate multiphasic flow at the posterior tib ial, and dorsalis pedis arteries. Segmental pressures: Segmental pressures are within normal bilaterally (left infrapopliteal press ure difference is not believed to represent significant PAD given normal other indices). Pulse volume recordi ngs: PVRs at the high thigh, below knee, and ankle levels show normal waveforms. Conclusion: Right and left ankle -brachial indices are suggestive of normal overall arterial flow at res t. Toe-brachial indices are not suggestive of PAD. Segmental pressures show no significant segmental disease. Pulse volume recordings indicate good overall resting arterial flow. Waveform analysis suggests normal bila teral arterial flow. Overall normal physi ologic examination at rest. Electronically Renetta d On 10-31-2024 18:02:36 EDT by RAH MORAN M.D. Dictated By: RAH MORAN Signed By: 10/31/24180110/31/241801 DD/ 1425 TD/TT: Integrated Marketing Specialist: XR foot RT min 3V (Not yet r eviewed by provider) Interpretation: Performing Lab: Notes/Report: Source Facility: [place] [address] XRay Report Signed Patient: GEREMIAS MELCHOR MR#: [id number] : 1965 Acct:[id number] Age/Sex: 58 / M ADM Date: 08/15/24 Loc: RAD Attending Dr: Nayla Chadwick D.P.M. Ordering Physician: Nayla Chadwick D.P.M. Date of Service: 08/15/24 Procedure(s): XR foot RT min 3V Accession Number(s): [id number] cc: Nayla Chadwick D.P.M.; Physician,Non-Staff Zari [facility] [place] [address] Patient Name: GEREMIAS MELCHOR MRN: [id number] date: 1965 Sex: M Assigned Patient Location: RAD Current Patient Location: Accession/Order Number: [id number] Exam Date: 08/15/2024 15:20 Report Date: 08/17/2024 11:33 At the request of: NAYLA CHADWICK Procedure: XR foot RT min 3V PROCEDURE: XR ankle RT min 3V, XR foot RT min 3V COMPARISON: 11/15/2023 HISTORY: Right Foot And Ankle Pain FINDINGS: BONES:Stable ankle fusion utilizing a retrograde intramedullary. No proximally and distally. Some lucency surrounding the distal nail and calcaneal fixation screw, stable from the prior exam. No significant bony bridging across the tibiotalar or talonavicular joints. There is dorsal displacement of the midfoot in relation to the forefoot, unchanged with degenerative changes. SOFT TISSUES:Negative. No visible soft tissue swelling. EFFUSION:None visible. OTHER: Negative. XR/XR foot RT min 3V IMPRESSION: Stable exam. No interval change or increase in bony bridging Electronically authenticated by: SASHA FLAHERTY Date: 08/17/2024 11:33 Dictated By: Sasha Flaherty M.D. Signed By: 08/17/24 1135 DD/ 1133 TD/TT: Integrated Marketing Specialist: [place] [address] XRay Report Signed Patient: GEREMIAS MELCHOR MR#: [id number] : 1965 Acct:[id number] Age/Sex: 58 / M ADM Date: 08/15/24 Loc: ANALI Attending Dr: Nayla Chadwick D.P.M. Ordering Physician: aNyla Chadwick D.P.M. Date of Service: 08/15/24 Procedure(s): XR foot RT min 3V Accession Number(s): [id number] cc: Nayla Chadwick D.P.M.; Physician,Non-Staff Zari [facility] [place] [address] Patient Name: GEREMIAS MELCHOR MRN: [id number] date: 1965 Sex: M Assigned Patient Location: RAD Current Patient Location: Accession/Order Sarah er: [id number] Exam Date: 08/15/2024 15:20 Report Date: 08/17/2024 11:33 At the request of: NAYLA CHADWICK Procedure: XR foot RT min 3V PROCEDURE: XR ankle RT min 3V, XR foot RT min 3V COMPARISON: 11/15/2023 HISTORY: Right Foot And Ankle Pain FINDINGS: BONES:Stable ankle f usion utilizing a retrograde intramedullary. No proximally and distally. Some l ucency surrounding the distal nail and calcaneal fixation screw, stable from t he prior exam. No significant bony bridging across the tibiotalar or talona vicular joints. There is dorsal displacement of the midfoot in relation to the f orefoot, unchanged with degenerative changes. SOFT TISSUES:Negativ e. No visible soft tissue swelling. EFFUSION:None visible. OTHER: Negative. X R/XR foot RT min 3V IMPRESSION: Stable exam. No inte rval change or increase in bony bridging Electronically authe nticated by: SASHA FLAHERTY Date: 08/17/2024 11:33 Dictated By: Sasha Flaherty M.D. Signed By: 08/17/24 1135 DD/ 1133 TD/TT: Integrated Marketing Specialist: XR ankle RT min 3V (Not yet reviewed by provider) Interpretation: Performing Lab: Notes/Report: Source Facility: [place] [address] XRay Report Signed Patient: GEREMIAS MELCHOR MR#: [id number] : 1965 Acct:[id number] Age/Sex: 58 / M ADM Date: 08/15/24 Loc: RAD Attending Dr: Nayla Chadwick D.P.M. Ordering Physician: aNyla Chadwick D.P.M. Date of Service: 08/15/24 Procedure(s): XR ankle RT min 3V Accession Number(s): [id number] cc: Nayla Chadwick D.P.M.; Physician,Non-Staff Zari [facility] [place] [address] Patient Name: GEREMIAS MELCHOR MRN: [id number] date: 1965 Sex: M Assigned Patient Location: RAD Current Patient Location: Accession/Order Number: [id number] Exam Date: 08/15/2024 15:20 Report Date: 08/17/2024 11:33 At the request of: NAYLA CHADWICK Procedure: XR ankle RT min 3V PROCEDURE: XR ankle RT min 3V, XR foot RT min 3V COMPARISON: 11/15/2023 HISTORY: Right Foot And Ankle Pain FINDINGS: BONES:Stable ankle fusion utilizing a retrograde intramedullary. No proximally and distally. Some lucency surrounding the distal nail and calcaneal fixation screw, stable from the prior exam. No significant bony bridging across the tibiotalar or talonavicular joints. There is dorsal displacement of the midfoot in relation to the forefoot, unchanged with degenerative changes. SOFT TISSUES:Negative. No visible soft tissue swelling. EFFUSION:None visible. OTHER: Negative. XR/XR ankle RT min 3V IMPRESSION: Stable exam. No interval change or increase in bony bridging Electronically authenticated by: SASHA FLAHERTY Date: 08/17/2024 11:33 Dictated By: Sasha Flaherty M.D. Signed By: 08/17/24 1135 DD/ 1133 TD/TT: Integrated Marketing Specialist: [place] [address] XRay Report Signed Patient: GEREMIAS MELCHOR MR#: [id number] : 1965 Acct:[id number] Age/Sex: 58 / M ADM Date: 08/15/24 Loc: ANALI Attending Dr: Nayla Chadwick D.P.M. Ordering Physician: Nayla Chadwick D.P.M. Date of Service: 08/15/24 Procedure(s): XR ankle RT min 3V Accession Number(s): [id number] cc: Nayla Chadwick D.P.M.; Physician,Non-Staff Zari [facility] [place] [address] Patient Name: GEREMIAS MELCHOR MRN: [id number] date: 1965 Sex: M Assigned Patient Location: RAD Current Patient Location: Accession/Order Sarah er: [id number] Exam Date: 08/15/2024 15:20 Report Date: 08/17/2024 11:33 At the request of: NAYLA CHADWICK Procedure: XR ankle RT min 3V PROCEDURE: XR ankle RT min 3V, XR foot RT min 3V COMPARISON: 11/15/2023 HISTORY: Right Foot And Ankle Pain FINDINGS: BONES:Stable ankle f usion utilizing a retrograde intramedullary. No proximally and distally. Some l ucency surrounding the distal nail and calcaneal fixation screw, stable from t he prior exam. No significant bony bridging across the tibiotalar or talona vicular joints. There is dorsal displacement of the midfoot in relation to the f orefoot, unchanged with degenerative changes. SOFT TISSUES:Negativ e. No visible soft tissue swelling. EFFUSION:None visible. OTHER: Negative. X R/XR ankle RT min 3V IMPRESSION: Stable exam. No inte rval change or increase in bony bridging Electronically authe nticated by: SASHA FLAHERTY Date: 08/17/2024 11:33 Dictated By: Sasha Flaherty M.D. Signed By: 08/17/24 1135 DD/ 1133 TD/TT: Integrated Marketing Specialist: Reason For Referral No Information Medications Medication SIG (Take, Route, Fr equency, Duration) Notes Start Date End Date Status Jardiance Active Meloxicam Active Aspirin Active Sildenafil Citrate A ctive Gabapentin Active Fluoxetine Active Lisinopril Active Metoprolol Succinate Active Cholecalciferol Acti ve Atorvastatin Calcium Active Omeprazole Active Insulin Lispro Activ e Thiamine HCl Active Doxepin HCl Active ALPRAZolam Active Lantus Active Cephalexin 500 MG 1 capsule Orally tid for 14 days 08/15/2024 Active Problems Problem Type SNOMED Code ICD Code Onset Dates Problem Status W/U Status Risk Notes Problem Foot ulcer due to type 2 diabetes mellitus (9085739453387) Type 2 diabetes mellitus with foot ulcer (E11.621) Active confirmed Problem Ankle ulcer (752320132) Non-pressure chronic ulcer of right ankle with fat layer exposed (L97.312) Active confirmed Problem Non-pressure chronic ulcer of left heel and midfoot limited to breakdown of skin (L97.421) Active confirmed Problem Chronic ulcer of foot (595661359) Non-pressure chronic ulcer of left heel and midfoot with fat layer exposed (L97.422) Active confirmed Problem 159611664 Non-pressure chronic ulcer of other part of left foot with fat layer exposed (L97.522) Active confirmed Problem 022538300 Charcot's joint, right ankle and foot (M14.671) Active confirmed Problem Arthralgia of the ankle and/or foot (852483550) Pain in right ankle and joints of right foot (M25.571) Active confirmed Problem Hypertension (64610593) Hypertension (I10) Active confirmed Problem Diabetes mellitus type 2 (disorder) (31531609) DM2 (diabetes mellitus, type 2) (E11.9) Active confirmed Problem Chronic ulcer of foot (407491576) Non-pressure chronic ulcer of right heel and midfoot with fat layer exposed (L97.412) Active confirmed Problem Foot ulcer due to type 2 diabetes mellitus (0562029607706) Diabetes mellitus with foot ulcer due to multiple causes (E11.621) Active confirmed Problem Acquired equinus deformity of foot (94857838) Acquired equinus deformity of foot (M21.6X9) Active confirmed Problem Chronic osteomyelitis of right foot (1562471263891156 ) Chronic osteomyelitis of right foot (M86.671) Active confirmed Problem Polyneuropathy due to type 2 diabetes mellitus (349491699) Diabetes mellitus with diabetic polyneuropathy (E11.42) Active confirmed Problem Ankle ulcer (862142584) Non-healing ulcer of ankle, right, with fat layer exposed (L97.312) Active confirmed Problem Alcohol withdrawal syndrome (428504090) Alcohol withdrawal syndrome (F10.239) Active confirmed Problem High cholesterol (26552632) High cholesterol (E78.00) Active confirmed Problem Presence of functional implant (Z96.9) Active confirmed Problem Ankle ulcer (603530201) Non-pressure chronic ulcer of ankle, right, limited to breakdown of skin (L97.311) Active confirmed Problem Localized, primary osteoarthritis of the ankle and/or foot (687155668) Osteoarthritis of ankle and foot, right (M19.071) Active confirmed Problem Diabetic neuropathic arthropathy (144671624) 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) Active confirmed Problem Chronic osteomyelitis of ankle and/or foot (361623781) Chronic osteomyelitis of right foot with draining sinus (M86.471) Active confirmed Problem Arthropathy associated with a neurological disorder (85442101) Charcot''s joint of right ankle (M14.671) Active confirmed Problem Ankle ulcer (291794772) Ischemic ulcer of right ankle with fat layer exposed (L97.312) Active confirmed Problem Ankle ulcer (991253651) Chronic ulcer of right ankle with fat layer exposed (L97.312) Active confirmed Problem Arthritis of right subtalar joint (8541580713856408 6) 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 (PODIATRY) [address] [place] [address] [place] [address] 08/15/2024 Nayla Chadwick Charcot's joint, right ankle and foot M14.671 ; Non-pressure chronic ulcer of other part of left foot with fat layer exposed L97.522 ; Cellulitis of left lower limb L03.116 and Pain in right ankle and joints of right foot M25.[address] [facility] (PODIATRY) [address] [place] [address] [place] [address] 08/15/2024 Nayla Chadwick Assessments Encounter Date Diagnosis (ICD Code) Assessment Notes Treatment Notes Treatment Clinical Notes Section Notes 08/15/2024 Charcot's joint, right ankle and foot (ICD-10 - M14.671) Patient seen and evaluated. Patient education provided and all questions answered to his satisfaction. Patient is doing satisfactorily although does have difficulty getting into hiking/hunting boots due to his ankle fusion. I did discuss potential utilization of a [place] boot which he adamantly declined. Although there [...] foot (ICD-10 - M25.571) Plan Of Treatment Pending Test Test Name Order Date XR Ankle RT (3 views) * (161) 08/15/2024 XR Foot RT (3 views) * 08/15/2024 AFB Specimen Processing 03/31/2023 Acid Fast Smear 03/31/2023 XR ankle RT min 3V 08/17/2024 XR foot RT min 3V 02/16/2024 XR foot RT min 3V 08/17/2024 Fungus Stain 03/31/2023 CA segmental UE or [place] 10/31/2024 Insurance Providers Payer Name Payer Address Payer Phone Subscriber Number Group Number Insured Name Patient Relationship to Insured Coverage Start Date Coverage End Date [employer] MEDIBLUE DUAL ADV PRIMARY MEDICARE [address] [place] [address] [id number] [facility] Geremias Melchor Self - patient is the insured 1 MEDICAID [place] 2ND INS [address] [facility] [address] [place], [place] [id number] Geremias Melchor Self - patient is the insured Medical (General) History Medical History History ICD Code diabetic neuropathy Surgical History Surgery Date(Month/Year) left ankle fusion left foot recon 023 removal of hardware 06/27/2023
--- OUTSIDE RECORDS SUMMARY | 2025-03-13 11:13 | XMS_ITS | Encounter Summary ---
Author Organization [facility] Address [address] [facility] [place] [address] Care Team Providers Care Memorial Designer Name Role Phone Shay Han DO Unavailable [phone] Jignesh Muniz MUFFLER HAND Primary Care Provider [phone] Encounter Details Date Type Department Care Team (Late st Contact Info) Description 02/28/2023 Orders Only [facility] [address] [place] [address] A, Unknown Practice [address] [place] [address] Social History Tobacco Use Types Packs/Day Years [...] [facility] [address] [place] [address] Kimmie Yarbrough MD [address] [place] [address] documented as of this encounter Procedures Procedure [...] on filedocumented in this encounter Care Teams Memorial Designer Relationship Specialty Start Date End Date Shay Han DO [address] [place] [address] PCP - Daniel WANG 12/09/22 08/10/23 Jignesh Muniz, MUFFLER HAND [address] [place] [address] PCP - General Family Medicine 12/27/22 documented as of this encounter
--- OUTSIDE RECORDS SUMMARY | 2025-03-13 11:13 | XMS_ITS | Clinical Summary ---
Author Organization [facility] Address [address], [address] [place] [address] Care Team Providers Care Gis Professor Name Role Phone Manfred Muniz MD Primary Care Provider [phone] Allergies No known active allergies Medications furosemide (LASIX) 20 MG tablet Take 20 mg by mouth daily Active gabapentin (NEURONTIN) 800 MG tablet Take 800 mg by mouth 3 times daily. Active metFORMIN (GLUCOPHAGE) 500 MG tablet Take 500 mg by mouth three times daily Active Cyanocobalamin (VITAMIN B-12) 5000 MCG TBDP Take by mouth daily Active Mammoth-3 Fatty Acids (FISH OIL) 1200 MG CAPS [...] on file Medical Devices Implanted Type Area Wood Tank Erector Device Identifier Shelf Expiration Date Model / Serial / Lot [place] Sut Corkscrew Biocomposite 5.5mm Implanted:Qty: 1 on 12/28/2019 by Farzad Escalona MD at [facility] Right: Shoulder [employer] 05/10/2020 [id number] / / [id number] [place] Suture Swivelock 4.75x19.1 Biocomposite Min 5ea Implanted:Qty: 1 on 12/28/2019 by Farzad Escalona MD at [facility] Right: Shoulder [employer] 06/09/2023 [id number] / / [id number] Button Endoscopic Bicep 2.6x12mm Implanted:Qty: 1 on 12/28/2019 by Farzad Escalona MD at [facility] Fastener Right: Shoulder [employer] 01/08/2024 [id number] / / [id number] Insurance MEDICARE [place]ICAID [place] Care Teams Gis Professor Relationship Specialty Start Date End Date Manfred Muniz MD [address] [place] [address] PCP - General Internal Medicine 12/21/19
--- OUTSIDE RECORDS SUMMARY | 2025-03-13 11:13 | XMS_ITS | Encounter Summary ---
Author Organization [facility] Address [address] [place] [address] Care Team Providers Care Rubber Mold Maker Name Role Phone Shay Han DO Unavailable [phone] Jignesh Muniz BUTCHER'S ASSISTANT Primary Care Provider [phone] Encounter Details Date Type Department Care Team (Late Contact Info) Description 12/23/2022 Abstract [facility] [address] [facility] [address] [place] [address] Rachid Crowe DPM [address] [facility] [address] [place] [address] Social History Tobacco Use Types Packs/Day Years [...] [facility] [address] [place] [address] Kimmie Yarbrough MD [address] [place] [address] documented as of this encounter Visit Diagnoses Not on filedocumented in this encounter Care Teams Rubber Mold Maker Relationship Specialty Start Date End Date Shay Han DO [address] [place] [address] PCP - Daniel WANG 12/09/22 08/10/23 Jignesh Muniz, BUTCHER'S ASSISTANT [address] [place] [address] PCP - General Family Medicine 12/27/22 documented as of this encounter
--- OUTSIDE RECORDS SUMMARY | 2025-03-13 11:13 | XMS_ITS | Encounter Summary ---
Author Organization [facility] Address [address] [facility] [place] [address] Care Team Providers Care Supervisor Boatbuilders Wood Name Role Phone Shay Han DO Unavailable [phone] Jignesh Muniz TOWER OBSERVER Primary Care Provider [phone] Encounter Details Date Type Department Care Team (Late st Contact Info) Description 02/25/2023 Orders Only [facility] [address] [place] [address] A, Unknown Practice [address] [place] [address] Social History Tobacco Use Types Packs/Day Years [...] [facility] [address] [place] [address] Kimmie Yarbrough MD [address] [place] [address] documented as of this encounter Procedures Procedure Name Priority Date/Time Associated Diagnosis Comments SCANNED LABS Routine 02/23/2023 1:53 PM EDT documented in this encounter Results * SCANNED LABS (02/23/2023 1:53 PM EDT) us Unknown Practice A LAB CHG PERFORMABLES Final Re sult documented in this encounter Visit Diagnoses Not on filedocumented in this encounter Care Teams Supervisor Boatbuilders Wood Relationship Specialty Start Date End Date Shay Han DO [address] [place] [address] PCP - Daniel WANG 12/09/22 08/10/23 Jignesh Muniz, TOWER OBSERVER [address] [place] [address] PCP - General Family Medicine 12/27/22 documented as of this encounter
--- OUTSIDE RECORDS SUMMARY | 2025-03-13 11:13 | XMS_ITS | Clinical Summary ---
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
--- OUTSIDE RECORDS SUMMARY | 2025-03-13 11:13 | XMS_ITS | Encounter Summary ---
Author Organization [facility] Address [address] [facility] [place] [address] Care Team Providers Care Product Development Ecologist Name Role Phone Shay Han DO Unavailable [phone] Jignesh Muniz DISASSEMBLER PRODUCT Primary Care Provider [phone] Encounter Details Date Type Department Care Team (Late st Contact Info) Description 02/15/2023 Orders Only [facility] [address] [place] [id number] A, Unknown Practice [address] [place] [address] Social History Tobacco Use Types Packs/Day Years [...] [facility] [address] [place] [address] Kimmie Yarbrough MD [address] [place] [address] documented as of this encounter Procedures Procedure [...] on filedocumented in this encounter Care Teams Product Development Ecologist Relationship Specialty Start Date End Date Shay Han DO [address] [place] [address] PCP - Daniel WANG 12/09/22 08/10/23 Jignesh Muniz, DISASSEMBLER PRODUCT [address] [place] [address] PCP - General Family Medicine 12/27/22 documented as of this encounter
--- OUTSIDE RECORDS SUMMARY | 2025-03-13 11:13 | XMS_ITS | Encounter Summary ---
Author Organization [facility] Address [address] [place] [address] Care Team Providers Care Box Press Operator Name Role Phone GuilleShay levi Lucina DO Unavailable [phone] Jignesh Muniz REWINDER OPERATOR HELPER Primary Care Provider [phone] Encounter Details Date Type Department Care Team (Late st Contact Info) Description 02/08/2023 Orders Only [facility] [address] [place] [id number] Sydnie Nagel LPN Social History Tobacco Use [...] [facility] [address] [place] [address] Kimmie Yarbrough MD [address] [place] [address] documented as of this encounter Visit Diagnoses Not on filedocumented in this encounter Care Teams Box Press Operator Relationship Specialty Start Date End Date Shay Han DO [address] [place] [address] PCP - Daniel WANG 12/09/22 08/10/23 Jignesh Muniz NP [address] [facility] [address] [place] [address] PCP - General Family Medicine 12/27/22 documented as of this encounter
--- OUTSIDE RECORDS SUMMARY | 2025-03-13 11:14 | XMS_ITS | Clinical Summary ---
Author Organization [facility] Address [address] [place] [address] Care Team Providers Care Wax Specialist Name Role Phone Jignesh Muniz NP Primary Care Provider [phone] Allergies No known active allergies Medications ammonium [...] [facility] [address] [place] [address] Kimmie Yarbrough MD [address] [place] [address] Health Maintenance Due Date Last Done Comments CT Colonography 1964 Colonoscopy 1964 Colorectal Cancer Screening 1964 FIT-DNA 1964 FIT 1964 FOBT 1965 Sigmoidoscopy 1964 Influenza Vaccine (#1) 2025 05/08/2024, 2021, 04/30/2021 Insurance [employer] MEDICAID [place] Care Teams Wax Specialist Relationship Specialty Start Date End Date Jignesh Muniz NP PCP - General Family Medicine 12/27/22
--- OUTSIDE RECORDS SUMMARY | 2025-03-13 11:14 | XMS_ITS | Patient Health Record ---
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) Active confirmed Problem Incomplete rupture of right rotator cuff (M75.111) Active confirmed Problem [id number] Right shoulder pain, unspecified chronicity (M25.511) Active confirmed Plan Of Treatment No Information Insurance Providers Payer Name Payer Address Payer Phone Subscriber Number Group Number Insured Name Patient Relationship to Insured Coverage Start Date Coverage End Date Medicare [employer] [address] [place] [address] [id number] GEREMIAS ARAYA Self - patient is the insured [place] Dept of Medicaid [address] [place] [address] [id number] GEREMIAS ARAYA Self - patient is the insured Medicare [address] [address] [id number] GEREMIAS ARAYA Self - patient is the [...]
--- OUTSIDE RECORDS SUMMARY | 2025-03-13 12:13 | XMS_ITS | CCD ---
Author Organization Unknown Care Team Providers Care Paginator Name Role Phone Unavailable Primary Care Provider Unavailabl e Unavailable Chronic Care Management Unavaila ble Summary Purpose DataExchange Insurance Providers Payer name Policy type / Coverage type Covered green party ID Effective Begin Date Effective End Date [facility] [id number] Unknown Unknown Family History Family History data not found Medication Administered No Medication Administered data Reason For Visit No Reason For Visit data Medical Equipment No Medical Equipment data Advance Directives No Advance Directive data
--- OUTSIDE RECORDS SUMMARY | 2025-03-13 15:00 | XMS_ITS | CCD ---
Author Organization [facility] Inform ion Partnership [facility] Care Team Providers Care Filter Changer Name Role Phone LENKA ROQUE Attending Unavailable [...] Care Physician UnavailEricka Encarnacion Primary Care Provider [phone] Ericka Muniz Primary Care Physician Unavailab WALTER [...] Healthcare, Franky P Primary Care Physician Unavai josele NON STAFF Primary Care Provider UnavailSOLE Short Emergency Provider [phone] RADHA Novak Attending Provider [phone] [facility], CHERYL Yu Attending Provider NON STAFF Primary Care Provider UnavailSOLE Short Emergency Provider [facility], DPSarina Yu Attending Provider RADHA Novak Attending Provider [facility], CHERYL Ontiveros Attending Provider RADHA Novak Attending Provider [phone] Edilberto Zamora Primary Care Physician Farhat Zamora, [...] Care Physician Unavailab RADHA Ayers Emergency Provider MD Ericka Muniz Primary Care Provider [phone] Gregg [facility] Missy Galan Emergency Provider Ericka Muniz Primary Care Physician UnavailCinthia López Primary Care Physician Unavailcameron Muniz MD, Ericka Shah Primary Care Provider [phone] Todd BISWAS[facility], Ayanna Gutiérrez Attending Provider Ericka [...] 12-28-2019 fentaNYL (SUBL IMAZE) injection 25 mcg Kobrsjmqxvb-Gznuvjsnv-Rufqmi er (1 source) Anticholinergic, Corticosteroid, beta2-Adrenergic Agonist Start: 08-14-2024 Knkurhkvdhv-Uljccrvvl-Hldcvy er (Trelegy Ellipta) 100-62.5-25 mcg blister with [...] injection 10 mg omega-3 acid ethyl esters (snf) 1200 mg oral capsule (6 sources) Jackson-3 Fatty Acids (FISH OIL) 1200 MG CAPS Take by mouth daily 0 Active Jackson-3 Fatty Acids (FISH OIL) 1200 MG CAPS (1 source) Jackson-3 Fatty Acids (FISH OIL) 1200 MG CAPS [...] days. 56 tablet 0 12/28/2019 01/04/2020 Active [id number] 200 actuat albuterol 0.09 mg/actuat metered dose [...] Start: 11-11-2023 take 1 puff(s) by mo [facility] every six hours as needed INHALE 1 PUFF BY MOUTH EVERY 6 HOURS NEEDED Start: 05-11-2022 take 1 puff(s) by mo [facility] every six hours as needed Ventolin HFA 90 mcg/actuation aerosol inhaler 05/11/2022 INHALE 1 PUFF BY MOUTH EVERY 6 HOURS NEEDED Start: 03-06-2021 take 1 puff(s) by [facility] every six hours as needed Ventolin HFA 90 mcg/actuation aerosol inhaler 03/06/2021 INHALE 1 PUFF BY MOUTH EVERY 6 HOURS NEEDED Start: 10-20-2020 take 1 puff(s) by [facility] every six hours as needed Ventolin HFA 90 mcg/actuation inhalation HFA aerosol inhaler 10/20/2020 INHALE 1 PUFF BY MOUTH EVERY 6 HOURS NEEDED Start: 04-23-2020 take 1 puff(s) by [facility] every six hours as needed Ventolin HFA 90 mcg/actuation inhalation HFA aerosol inhaler 04/23/2020 INHALE 1 PUFF BY MOUTH EVERY 6 HOURS NEEDED Start: 03-14-2019 take 1 puff(s) by [facility] every six hours as needed Ventolin HFA 90 mcg/actuation inhalation HFA aerosol inhaler 03/14/2019 INHALE 1 PUFF BY MOUTH EVERY 6 HOURS NEEDED Start: 10-05-2017 take 1 puff(s) by mo [facility] every six hours as needed Ventolin HFA [...] pm Start: 11-06-2015 take 8 tablets by [facility] in the morning, then take 1 [...] Start: 11-14-2023 take 1 capsule by mo [facility] once daily Fluoxetine 10 mg capsule Active [...] Start: 03-21-2024 take 2 tablets by mo [facility] once daily take 2 tablets (100 mg) [...] times a day take 1 tablet by [facility] twice daily metoprolol tartrate (LOPRESSOR) 25 MG [...] day for 14 days, cover with bandage Jackson-3 Fatty Acids (Fish Oil) Capsule (8 sources) Start: 04-14-2022 End: 12-03-2023 take 1 capsule by mouth once daily Jackson-3 Fatty Acids (Fish Oil) Capsule Discontinued 1000 MG PO Daily April 13, 2022 11:00pm December 03, 2023 3:38pm Start: 04-14-2022 End: 12-03-2023 take 1 capsule by mouth once daily Jackson-3 Fatty Acids (Fish Oil) Capsule Discontinued 1000 MG PO Daily April 14, 2022 12:00am December 03, 2023 4:38pm Start: 04-14-2022 take 1 capsule by [facility] once daily Jackson-3 Fatty Acids (Fish Oil) Capsule Active 1000 MG PO Daily April 13, 2022 11:00pm Start: 04-14-2022 take 1 capsule by [facility] once daily Jackson-3 Fatty Acids (Fish Oil) Capsule Active 1000 [...] By: Jakob Torres on 07-19-2024 Study report [facility] [place] [address] XRay Report Signed Patient: Geremias Melchor MR#: [id number] : 1965 Acct:[id number] Age/Sex: 58 / M ADM Date: 5 Loc: RT Room: Type: [facility] Attending Dr: Ayanna CAMPOS Copies to: [...] DO 07/19/24 1633 Signed By: 07/19/24 1633 [facility] XR chest 2V*on 07-19-2024 XR chest 2V* [facility] [place] [address] [place] [address] XRay Report Signed Patient: Geremias Melchor MR#: [id number] : 1965 Acct:[id number] Age/Sex: 58 / M ADM Date: 07/19/24 Loc: RT Room: Type: [facility] Attending Dr: Ayanna CAMPOS Copies to: [...] 1633 Signed By: 07/19/24 1633 Normal [facility] Cardiology Office/Clinic Not michele 06-21-2024 [...] Working t (more content not included)... Normal [facility] Cardiac Echocardiogram Trans thoracicon 01-13-2024 Cardiac Echocardiogram Transthoracic TRANSTHORACIC ECHOCARDIOGRAM Study Date/Time: Jan 11 2024 3:48PM BP: 148 / 90 HR: 88 bpm HT/WT: 180.3 cm (71 in) / 108.9 kg (239.5 lb) BSA/BMI: 2.28 m^2 / 33.5 kg/m^2 ORDERING PROVIDER: Ayanna Brooks INTERPRETING PHYSICIAN: Bo Pearce DO STERILISATION TECHNICIAN: Vonda Paige RDCS, RVT ---- INDICATIONS: Dyspnea. [...] outside specified reference range. Electronically signed by oB Pearce DO 01/13/2024 07:32 Final Dictated by: Bo Pearce DO Dictated DT/TM: 01/13/2024 7:32 am Signed (more content not included)... Normal [facility] Comment on above: Order Comment: merrill galan Laboratory - Chemistry and C hemistry - challengeon 11-14-2023 Albumin (U) [Mass/Vol] 21.2 Invalid Interpretation Code <17.0 [facility] Albumin [Mass/Vol] 4.60 g/dL Invalid Interpretation Code 3.7-5.0 [facility] Albumin/Creatinine DL <= 20 mg/L (U) [Mass ratio] 43.1 mg/g Invalid Interpretation Code 0.0-30.0 [facility] Albumin/Globulin [Mass ratio] 1.3 {ratio} Invalid Interpretation Code 1.0-2.4 [facility] ALP [Catalytic activity/Vol] 83.0 U/L Invalid Interpretation Code 31-155 [facility] ALT [Catalytic activity/Vol] 51.0 U/L Invalid Interpretation Code 0-50 [facility] Anion gap [Moles/Vol] 14 mmol/L Invalid Interpretation Code 10-20 [facility] AST [Catalytic activity/Vol] 41.0 U/L Invalid Interpretation Code 0-40 [facility] Bilirubin [Mass/Vol] 0.30 mg/dL Invalid Interpretation Code 0.0-1.0 [facility] Bilirubin Ql (U) Negative Invalid Interpretation Code Negative [facility] Calcium [Mass/Vol] 10.40 mg/dL Invalid Interpretation Code 8.5-10.8 [facility] Chloride [Moles/Vol] 102.0 mmol/L Invalid Interpretation Code 100-112 [facility] Cholesterol [Mass/Vol] 236.0 mg/dL Invalid Interpretation Code 0-200 [facility] Cholesterol in HDL [Mass/Vol] 53.0 mg/dL Invalid Interpretation Code 36-100 [id number] Cholesterol in LDL [Mass/Vol] 146.0 mg/dL Invalid Interpretation Code 0-130 [id number] Cholesterol in VLDL [Mass/Vol] 37.0 mg/dL Invalid Interpretation Code 0-39 [id number] Cholesterol.total/C holesterol in HDL [Mass ratio] 4 {ratio} Invalid Interpretation Code [id number] CO2 [Moles/Vol] 25.0 mmol/L Invalid Interpretation Code 23-30 [id number] Creatinine (U) [Mass/Vol] 49.20 mg/dL Invalid Interpretation Code Not Estab. mg/dL [id number] Creatinine [Mass/Vol] 1.10 mg/dL Invalid Interpretation Code 0.5-1.5 [id number] Glucose [Mass/Vol] 159.0 mg/dL Invalid Interpretation Code 80-117 [id number] Ketones Ql (U) Negative Invalid Interpretation Code Negative [email or web address] pH (U) 6 [pH] Invalid Interpretation Code 5.0-9.0 [id number] Potassium [Moles/Vol] 4.40 mmol/L Invalid Interpretation Code 3.5-5.3 [id number] Protein [Mass/Vol] 8.20 g/dL Invalid Interpretation Code 6.3-7.9 [facility] Sodium [Moles/Vol] 137.0 mmol/L Invalid Interpretation Code 135-148 [facility] Specific gravity (U) [Rel density] 1.010 Invalid Interpretation Code 1.003-1.030 [facility] Triglyceride [Mass/Vol] 184.0 mg/dL Invalid Interpretation Code 30-150 [facility] Urea nitrogen [Mass/Vol] 16.0 mg/dL Invalid Interpretation Code 7-25 [facility] Urea nitrogen/Creatinine [Mass ratio] 15 mg/mg Invalid Interpretation Code 6-20 [facility] Urobilinogen (U) [Mass/Vol] normal Invalid Interpretation Code normal [facility] Laboratory - Hematology and Cell countson 11-14-2023 Erythrocyte distribution width (RBC) [Ratio] 12.60 % Invalid Interpretation Code 11.5-15.5 [facility] HbA1c (Bld) [Mass fraction] 6.80 % Invalid Interpretation Code 4.3-6.3 [facility] Hematocrit (Bld) [Volume fraction] 46.80 % Invalid Interpretation Code 37.8-51.0 [facility] Hemoglobin (Bld) [Mass/Vol] 15.70 g/dL Invalid Interpretation Code 12.6-17.0 [facility] Hemoglobin Ql (U) Negative Invalid Interpretation Code Negative [facility] MCH (RBC) [Entitic mass] 32.80 pg Invalid Interpretation Code 25.7-33.8 [facility] MCHC (RBC) [Mass/Vol] 33.50 g/dL Invalid Interpretation Code 32.0-36.0 [facility] MCV (RBC) [Entitic vol] 97.70 fL Invalid Interpretation Code 81.0-100.2 [facility] Platelet mean volume (Bld) [Entitic vol] 9.70 fL Invalid Interpretation Code 8.3-11.5 [facility] Platelets (Bld) [#/Vol] 240.0 10*3/uL Invalid Interpretation Code 150-400 [facility] RBC (Bld) [#/Vol] 4.790 10*6/uL Invalid Interpretation Code 4.34-5.61 [facility] WBC (Bld) [#/Vol] 6.90 10*3/uL Invalid Interpretation Code 3.9-10.3 [facility] Laboratory - Specimen inform ationon 11-14-2023 Clarity (U) Clear Invalid Interpretation Code Clear [facility] Color (U) yellow Invalid Interpretation Code yellow [facility] Laboratory - Urinalysison Glucose Test strip (U) [Mass/Vol] 4+ Invalid Interpretation Code Negative [facility] Leukocyte esterase Test strip Ql (U) Trace Invalid Interpretation Code Negative [facility] Nitrite Ql (U) Negative Invalid Interpretation Code Negative [facility] Protein Ql (U) 1+ Invalid Interpretation Code Negative [facility] No Panel Informationon 11-13 148.0 mg/dL Invalid Interpretation Code [facility] 77 Invalid Interpretation Code [facility] No Panel Informationon 08-01 Tobacco smoking status Current Tobacco User Invalid Interpretation Code [facility] Diabetic Retinal Eye Exam Invalid Interpretation Code [facility] Physician Orderon 06-16-2023 Physician Order [id number] [id number] Normal [facility] Laboratory - Chemistry and C hemistry - challengeon 01-25-2023 Albumin (U) [Mass/Vol] < 12.0 Invalid Interpretation Code < 17.0 ug/mL [facility] Albumin [Mass/Vol] 4.50 g/dL Invalid Interpretation Code 3.7-5.0 [facility] Albumin/Globulin [Mass ratio] 1.4 {ratio} Invalid Interpretation Code 1.0-2.4 [facility] ALP [Catalytic activity/Vol] 93.0 U/L Invalid Interpretation Code 31-155 [facility] ALT [Catalytic activity/Vol] 62.0 U/L Invalid Interpretation Code 0-50 [facility] Anion gap [Moles/Vol] 16 mmol/L Invalid Interpretation Code 10-20 [facility] AST [Catalytic activity/Vol] 46.0 U/L Invalid Interpretation Code 0-40 [facility] Bilirubin [Mass/Vol] 0.40 mg/dL Invalid Interpretation Code 0.0-1.0 [facility] Bilirubin Ql (U) Negative Invalid Interpretation Code Negative [facility] Calcium [Mass/Vol] 10.20 mg/dL Invalid Interpretation Code 8.5-10.8 [facility] Chloride [Moles/Vol] 99.0 mmol/L Invalid Interpretation Code 100-112 [facility] Cholesterol [Mass/Vol] 212.0 mg/dL Invalid Interpretation Code 0-200 [facility] Cholesterol in HDL [Mass/Vol] 49.0 mg/dL Invalid Interpretation Code 36-100 [facility] Cholesterol in LDL [Mass/Vol] 135.0 mg/dL Invalid Interpretation Code 0-130 [facility] Cholesterol in VLDL [Mass/Vol] 28.0 mg/dL Invalid Interpretation Code 0-39 [facility] Cholesterol.total/C holesterol in HDL [Mass ratio] 4 {ratio} Invalid Interpretation Code [facility] CO2 [Moles/Vol] 26.0 mmol/L Invalid Interpretation Code 23-30 [facility] Creatinine (U) [Mass/Vol] 75.30 mg/dL Invalid Interpretation Code Not Estab. mg/dL [facility] Creatinine [Mass/Vol] 1.10 mg/dL Invalid Interpretation Code 0.5-1.5 [facility] Glucose [Mass/Vol] 111.0 mg/dL Invalid Interpretation Code 80-117 [facility] Ketones Ql (U) Negative Invalid Interpretation Code Negative [facility] pH (U) 6 [pH] Invalid Interpretation Code 5.0-9.0 [facility] Potassium [Moles/Vol] 4.70 mmol/L Invalid Interpretation Code 3.5-5.3 [facility] Prostate specific Ag [Mass/Vol] 0.94 ng/mL Invalid Interpretation Code 0.00-4.00 [facility] Protein [Mass/Vol] 7.80 g/dL Invalid Interpretation Code 6.3-7.9 [facility] Sodium [Moles/Vol] 136.0 mmol/L Invalid Interpretation Code 135-148 [facility] Specific gravity (U) [Rel density] 1.015 Invalid Interpretation Code 1.003-1.030 [facility] Triglyceride [Mass/Vol] 141.0 mg/dL Invalid Interpretation Code 30-150 [id number] Urea nitrogen [Mass/Vol] 20.0 mg/dL Invalid Interpretation Code 7-25 [place] [facility] Urea nitrogen/Creatinine [Mass ratio] 18 mg/mg Invalid Interpretation Code 6-20 [id number] Urobilinogen (U) [Mass/Vol] normal Invalid Interpretation Code normal [id number] Laboratory - Hematology and Cell countson 01-25-2023 Erythrocyte distribution width (RBC) [Ratio] 12.10 % Invalid Interpretation Code 11.5-15.5 [facility] HbA1c (Bld) [Mass fraction] 6.60 % Invalid Interpretation Code 4.3-6.3 [email or web address] Hematocrit (Bld) [Volume fraction] 43.70 % Invalid Interpretation Code 37.8-51.0 [facility] Hemoglobin (Bld) [Mass/Vol] 14.90 g/dL Invalid Interpretation Code 12.6-17.0 [facility] Hemoglobin Ql (U) Negative Invalid Interpretation Code Negative [facility] MCH (RBC) [Entitic mass] 32.50 pg Invalid Interpretation Code 25.7-33.8 [facility] MCHC (RBC) [Mass/Vol] 34.10 g/dL Invalid Interpretation Code 32.0-36.0 [facility] MCV (RBC) [Entitic vol] 95.40 fL Invalid Interpretation Code 81.0-100.2 [facility] Platelet mean volume (Bld) [Entitic vol] 9.20 fL Invalid Interpretation Code 8.3-11.5 [facility] Platelets (Bld) [#/Vol] 225.0 10*3/uL Invalid Interpretation Code 150-400 [facility] RBC (Bld) [#/Vol] 4.580 10*6/uL Invalid Interpretation Code 4.34-5.61 [facility] WBC (Bld) [#/Vol] 8.0 10*3/uL Invalid Interpretation Code 3.9-10.3 [facility] Laboratory - Specimen inform ationon 01-25-2023 Clarity (U) Clear Invalid Interpretation Code Clear [facility] Color (U) yellow Invalid Interpretation Code yellow [facility] Laboratory - Urinalysison Glucose Test strip (U) [Mass/Vol] 4+ Invalid Interpretation Code Negative [facility] Leukocyte esterase Test strip Ql (U) Negative Invalid Interpretation Code Negative [facility] Nitrite Ql (U) Negative Invalid Interpretation Code Negative [facility] Protein Ql (U) Negative Invalid Interpretation Code Negative [facility] No Panel Informationon 01-25 78 Invalid Interpretation Code [facility] 143.0 mg/dL Invalid Interpretation Code [facility] No Panel Informationon 01-24 Tobacco smoking status Current Tobacco User Invalid Interpretation Code [facility] Laboratory - Chemistry and C hemistry - challengeon 07-27-2022 25-hydroxyvitamin D3 [Mass/Vol] 26.8 ng/mL Invalid Interpretation Code 30.0-100.0 [facility] Albumin (U) [Mass/Vol] < 12.0 Invalid Interpretation Code < 17.0 ug/mL [facility] Albumin [Mass/Vol] 4.50 g/dL Invalid Interpretation Code 3.7-5.0 [facility] Albumin/Globulin [Mass ratio] 1.3 {ratio} Invalid Interpretation Code 1.0-2.4 [facility] ALP [Catalytic activity/Vol] 74.0 U/L Invalid Interpretation Code 31-155 [facility] ALT [Catalytic activity/Vol] 24.0 U/L Invalid Interpretation Code 0-50 [facility] Anion gap [Moles/Vol] 16 mmol/L Invalid Interpretation Code 10-20 [facility] AST [Catalytic activity/Vol] 14.0 U/L Invalid Interpretation Code 0-40 [facility] Bilirubin [Mass/Vol] 0.30 mg/dL Invalid Interpretation Code 0.0-1.0 [facility] Bilirubin Ql (U) Negative Invalid Interpretation Code Negative [facility] Calcium [Mass/Vol] 10.20 mg/dL Invalid Interpretation Code 8.5-10.8 [facility] Chloride [Moles/Vol] 96.0 mmol/L Invalid Interpretation Code 100-112 [facility] Cholesterol [Mass/Vol] 218.0 mg/dL Invalid Interpretation Code 0-200 [facility] Cholesterol in HDL [Mass/Vol] 41.0 mg/dL Invalid Interpretation Code 36-100 [facility] Cholesterol in LDL [Mass/Vol] 139.0 mg/dL Invalid Interpretation Code 0-130 [facility] Cholesterol in VLDL [Mass/Vol] 38.0 mg/dL Invalid Interpretation Code 0-39 [id number] Cholesterol.total/C holesterol in HDL [Mass ratio] 5 {ratio} Invalid Interpretation Code [facility] CO2 [Moles/Vol] 26.0 mmol/L Invalid Interpretation Code 23-30 [facility] Creatinine (U) [Mass/Vol] 41.10 mg/dL Invalid Interpretation Code Not Estab. mg/dL [facility] Creatinine [Mass/Vol] 1.0 mg/dL Invalid Interpretation Code 0.5-1.5 [facility] GFR/1.73 sq M.predicted among non-blacks MDRD (S/P/Bld) [Vol rate/Area] 77 mL/min/{1.73_m2} Invalid Interpretation Code [facility] Glucose [Mass/Vol] 134.0 mg/dL Invalid Interpretation Code 80-117 [facility] Ketones Ql (U) Negative Invalid Interpretation Code Negative [facility] Parathyrin.intact [Mass/Vol] 24 pg/mL Invalid Interpretation Code 12-65 [facility] pH (U) 6.5 [pH] Invalid Interpretation Code 5.0-9.0 [facility] Phosphate [Mass/Vol] 3.60 mg/dL Invalid Interpretation Code 2.5-4.5 [facility] Potassium [Moles/Vol] 4.60 mmol/L Invalid Interpretation Code 3.5-5.3 [facility] Protein [Mass/Vol] 7.90 g/dL Invalid Interpretation Code 6.3-7.9 [facility] Sodium [Moles/Vol] 133.0 mmol/L Invalid Interpretation Code 135-148 [facility] Specific gravity (U) [Rel density] 1.005 Invalid Interpretation Code 1.003-1.030 [facility] Triglyceride [Mass/Vol] 190.0 mg/dL Invalid Interpretation Code 30-150 [facility] Urea nitrogen [Mass/Vol] 23.0 mg/dL Invalid Interpretation Code 7-25 [facility] Urea nitrogen/Creatinine [Mass ratio] 23 mg/mg Invalid Interpretation Code 6-20 [facility] Urobilinogen (U) [Mass/Vol] normal Invalid Interpretation Code normal [id number] Laboratory - Hematology and Cell countson 07-27-2022 HbA1c (Bld) [Mass fraction] 6.70 % Invalid Interpretation Code 4.3-6.3 [facility] Hemoglobin Ql (U) Negative Invalid Interpretation Code Negative [id number] Laboratory - Specimen inform ationon 07-27-2022 Clarity (U) clear Invalid Interpretation Code Clear [facility] Color (U) yellow Invalid Interpretation Code yellow [facility] Laboratory - Urinalysison Glucose Test strip (U) [Mass/Vol] 4+ Invalid Interpretation Code Negative [facility] Leukocyte esterase Test strip Ql (U) Negative Invalid Interpretation Code Negative [facility] Nitrite Ql (U) Negative Invalid Interpretation Code Negative [facility] Protein Ql (U) Negative Invalid Interpretation Code Negative [facility] No Panel Informationon 07-27 Body mass index (BMI) [Percentile] Per age and sex 0.1 {percentile} Invalid Interpretation Code [facility] [id number] Per age and sex 0.1 {percentile} Invalid Interpretation Code [facility] 146.0 mg/dL Invalid Interpretation Code [facility] Patient did NOT brin g meter Invalid Interpretation Code 70-117 [facility] Laboratory - Chemistry and C hemistry - challengeon 02-17-2022 Albumin (U) [Mass/Vol] 17.1 Invalid Interpretation Code <17.0 [facility] Albumin [Mass/Vol] 4.80 g/dL Invalid Interpretation Code 3.7-5.0 [facility] Albumin/Creatinine DL <= 20 mg/L (U) [Mass ratio] 26.8 mg/g Invalid Interpretation Code 0.0-30.0 [facility] Albumin/Globulin [Mass ratio] 1.7 {ratio} Invalid Interpretation Code 1.0-2.4 [facility] ALP [Catalytic activity/Vol] 65.0 U/L Invalid Interpretation Code 31-155 [facility] ALT [Catalytic activity/Vol] 51.0 U/L Invalid Interpretation Code 0-50 [facility] Anion gap [Moles/Vol] 13 mmol/L Invalid Interpretation Code 10-20 [facility] AST [Catalytic activity/Vol] 30.0 U/L Invalid Interpretation Code 0-40 [facility] Bilirubin [Mass/Vol] 0.50 mg/dL Invalid Interpretation Code 0.0-1.0 [facility] Calcium [Mass/Vol] 10.80 mg/dL Invalid Interpretation Code 8.5-10.8 [facility] Chloride [Moles/Vol] 99.0 mmol/L Invalid Interpretation Code 100-112 [facility] Cholesterol [Mass/Vol] 214.0 mg/dL Invalid Interpretation Code 0-200 [facility] Cholesterol in HDL [Mass/Vol] 57.0 mg/dL Invalid Interpretation Code 36-100 [facility] Cholesterol in LDL [Mass/Vol] 133.0 mg/dL Invalid Interpretation Code 0-130 [facility] Cholesterol in VLDL [Mass/Vol] 24.0 mg/dL Invalid Interpretation Code 0-39 [facility] Cholesterol.total/C holesterol in HDL [Mass ratio] 4 {ratio} Invalid Interpretation Code [facility] CO2 [Moles/Vol] 30.0 mmol/L Invalid Interpretation Code 23-30 [facility] Creatinine (U) [Mass/Vol] 63.80 mg/dL Invalid Interpretation Code Not Estab. mg/dL [id number] Creatinine [Mass/Vol] 1.10 mg/dL Invalid Interpretation Code 0.5-1.5 [facility] GFR/1.73 sq M.predicted among non-blacks MDRD (S/P/Bld) [Vol rate/Area] 69 mL/min/{1.73_m2} Invalid Interpretation Code [facility] Glucose [Mass/Vol] 128.0 mg/dL Invalid Interpretation Code 80-117 [facility] Potassium [Moles/Vol] 4.60 mmol/L Invalid Interpretation Code 3.5-5.3 [facility] Prostate specific Ag [Mass/Vol] 0.85 ng/mL Invalid Interpretation Code 0.00-4.00 [facility] Protein [Mass/Vol] 7.60 g/dL Invalid Interpretation Code 6.3-7.9 [facility] Sodium [Moles/Vol] 137.0 mmol/L Invalid Interpretation Code 135-148 [facility] Triglyceride [Mass/Vol] 120.0 mg/dL Invalid Interpretation Code 30-150 [facility] Urea nitrogen [Mass/Vol] 16.0 mg/dL Invalid Interpretation Code 7-25 [facility] Urea nitrogen/Creatinine [Mass ratio] 15 mg/mg Invalid Interpretation Code 6-20 [id number] Laboratory - Hematology and Cell countson 02-17-2022 HbA1c (Bld) [Mass fraction] 6.50 % Invalid Interpretation Code 4.3-6.3 [id number] No Panel Informationon 02-17 140.0 mg/dL Invalid Interpretation Code [id number] Laboratory - Chemistry and C hemistry - challengeon 01-15-2022 Albumin (U) [Mass/Vol] < 12.0 Invalid Interpretation Code < 17.0 ug/mL [facility] Albumin [Mass/Vol] 4.70 g/dL Invalid Interpretation Code 3.7-5.0 [facility] Albumin/Globulin [Mass ratio] 1.6 {ratio} Invalid Interpretation Code 1.0-2.4 [facility] ALP [Catalytic activity/Vol] 66.0 U/L Invalid Interpretation Code 31-155 [facility] ALT [Catalytic activity/Vol] 38.0 U/L Invalid Interpretation Code 0-50 [facility] Anion gap [Moles/Vol] 15 mmol/L Invalid Interpretation Code 10-20 [facility] AST [Catalytic activity/Vol] 23.0 U/L Invalid Interpretation Code 0-40 [facility] Bilirubin [Mass/Vol] 0.40 mg/dL Invalid Interpretation Code 0.0-1.0 [facility] Bilirubin Ql (U) Negative Invalid Interpretation Code Negative [facility] Calcium [Mass/Vol] 10.40 mg/dL Invalid Interpretation Code 8.5-10.8 [facility] Chloride [Moles/Vol] 101.0 mmol/L Invalid Interpretation Code 100-112 [facility] CO2 [Moles/Vol] 28.0 mmol/L Invalid Interpretation Code 23-30 [facility] Creatinine (U) [Mass/Vol] 60.60 mg/dL Invalid Interpretation Code Not Estab. mg/dL [facility] Creatinine [Mass/Vol] 1.10 mg/dL Invalid Interpretation Code 0.5-1.5 [facility] Gamma glutamyl transferase [Catalytic activity/Vol] 62 U/L Invalid Interpretation Code 7-51 [facility] GFR/1.73 sq M.predicted among non-blacks MDRD (S/P/Bld) [Vol rate/Area] 69 mL/min/{1.73_m2} Invalid Interpretation Code [facility] Glucose [Mass/Vol] 116.0 mg/dL Invalid Interpretation Code 80-117 [facility] Ketones Ql (U) 1+ Invalid Interpretation Code Negative [email or web address] pH (U) 6 [pH] Invalid Interpretation Code 5.0-9.0 [email or web address] Potassium [Moles/Vol] 4.80 mmol/L Invalid Interpretation Code 3.5-5.3 [facility] Protein [Mass/Vol] 7.70 g/dL Invalid Interpretation Code 6.3-7.9 [facility] Sodium [Moles/Vol] 139.0 mmol/L Invalid Interpretation Code 135-148 [facility] Specific gravity (U) [Rel density] 1.010 Invalid Interpretation Code 1.003-1.030 [facility] Urea nitrogen [Mass/Vol] 17.0 mg/dL Invalid Interpretation Code 7-25 [facility] Urea nitrogen/Creatinine [Mass ratio] 15 mg/mg Invalid Interpretation Code 6-20 [facility] Urobilinogen (U) [Mass/Vol] normal Invalid Interpretation Code normal [facility] Laboratory - Hematology and Cell countson 01-15-2022 Erythrocyte distribution width (RBC) [Ratio] 12.50 % Invalid Interpretation Code 11.5-15.5 [facility] HbA1c (Bld) [Mass fraction] 6.60 % Invalid Interpretation Code 4.3-6.3 [facility] Hematocrit (Bld) [Volume fraction] 49.80 % Invalid Interpretation Code 37.8-51.0 [facility] Hemoglobin (Bld) [Mass/Vol] 16.40 g/dL Invalid Interpretation Code 12.6-17.0 [facility] Hemoglobin Ql (U) Negative Invalid Interpretation Code Negative [facility] MCH (RBC) [Entitic mass] 31.90 pg Invalid Interpretation Code 25.7-33.8 [facility] MCHC (RBC) [Mass/Vol] 32.90 g/dL Invalid Interpretation Code 32.0-36.0 [facility] MCV (RBC) [Entitic vol] 96.90 fL Invalid Interpretation Code 81.0-100.2 [facility] Platelet mean volume (Bld) [Entitic vol] 9.30 fL Invalid Interpretation Code 8.3-11.5 [facility] Platelets (Bld) [#/Vol] 216.0 10*3/uL Invalid Interpretation Code 150-400 [facility] RBC (Bld) [#/Vol] 5.140 10*6/uL Invalid Interpretation Code 4.34-5.61 [facility] WBC (Bld) [#/Vol] 7.30 10*3/uL Invalid Interpretation Code 3.9-10.3 [facility] - Specimen inform ationon 01-15-2022 Clarity (U) clear Invalid Interpretation Code Clear [facility] Color (U) yellow Invalid Interpretation Code yellow [facility] - Urinalysison Glucose Test strip (U) [Mass/Vol] 4+ Invalid Interpretation Code Negative [facility] Leukocyte esterase Test strip Ql (U) Negative Invalid Interpretation Code Negative [facility] Nitrite Ql (U) Negative Invalid Interpretation Code Negative [facility] Protein Ql (U) Negative Invalid Interpretation Code Negative [facility] No Panel Informationon 01-15 143.0 mg/dL Invalid Interpretation Code [facility] Glucose Meter Check NOT Performed Invalid Interpretation Code 70-117 [facility] - Chemistry and C hemistry - challengeon 08-18-2021 Albumin [Mass/Vol] 4.70 g/dL Invalid Interpretation Code 3.7-5.0 [facility] Albumin/Globulin [Mass ratio] 1.7 {ratio} Invalid Interpretation Code 1.0-2.4 [facility] ALP [Catalytic activity/Vol] 62.0 U/L Invalid Interpretation Code 31-155 [facility] ALT [Catalytic activity/Vol] 57.0 U/L Invalid Interpretation Code 0-50 [facility] Anion gap [Moles/Vol] 16 mmol/L Invalid Interpretation Code 10-20 [facility] AST [Catalytic activity/Vol] 33.0 U/L Invalid Interpretation Code 0-40 [facility] Bilirubin [Mass/Vol] 0.40 mg/dL Invalid Interpretation Code 0.0-1.0 [facility] Calcium [Mass/Vol] 10.20 mg/dL Invalid Interpretation Code 8.5-10.8 [facility] Chloride [Moles/Vol] 99.0 mmol/L Invalid Interpretation Code 100-112 [facility] Cholesterol [Mass/Vol] 217.0 mg/dL Invalid Interpretation Code 0-200 [facility] Cholesterol in HDL [Mass/Vol] 49.0 mg/dL Invalid Interpretation Code 36-100 [facility] Cholesterol in LDL [Mass/Vol] 131.0 mg/dL Invalid Interpretation Code 0-130 [facility] Cholesterol in VLDL [Mass/Vol] 37.0 mg/dL Invalid Interpretation Code 0-39 [facility] Cholesterol.total/C holesterol in HDL [Mass ratio] 4 {ratio} Invalid Interpretation Code [facility] CO2 [Moles/Vol] 28.0 mmol/L Invalid Interpretation Code 23-30 [facility] Creatinine [Mass/Vol] 1.10 mg/dL Invalid Interpretation Code 0.5-1.5 [facility] Gamma glutamyl transferase [Catalytic activity/Vol] 98 U/L Invalid Interpretation Code 7-51 [facility] GFR/1.73 sq M.predicted among non-blacks MDRD (S/P/Bld) [Vol rate/Area] 69 mL/min/{1.73_m2} Invalid Interpretation Code [facility] Glucose [Mass/Vol] 127.0 mg/dL Invalid Interpretation Code 80-117 [facility] Potassium [Moles/Vol] 4.40 mmol/L Invalid Interpretation Code 3.5-5.3 [facility] Protein [Mass/Vol] 7.50 g/dL Invalid Interpretation Code 6.3-7.9 [facility] Sodium [Moles/Vol] 139.0 mmol/L Invalid Interpretation Code 135-148 [facility] Triglyceride [Mass/Vol] 186.0 mg/dL Invalid Interpretation Code 30-150 [facility] Urea nitrogen [Mass/Vol] 19.0 mg/dL Invalid Interpretation Code 7-25 [facility] Urea nitrogen/Creatinine [Mass ratio] 17 mg/mg Invalid Interpretation Code 6-20 [id number] Laboratory - Hematology and Cell countson 08-18-2021 Erythrocyte distribution width (RBC) [Ratio] 12.60 % Invalid Interpretation Code 11.5-15.5 [facility] HbA1c (Bld) [Mass fraction] 6.20 % Invalid Interpretation Code 4.3-6.3 [facility] Hematocrit (Bld) [Volume fraction] 48.40 % Invalid Interpretation Code 37.8-51.0 [facility] Hemoglobin (Bld) [Mass/Vol] 16.10 g/dL Invalid Interpretation Code 12.6-17.0 [facility] MCH (RBC) [Entitic mass] 32.40 pg Invalid Interpretation Code 25.7-33.8 [facility] MCHC (RBC) [Mass/Vol] 33.30 g/dL Invalid Interpretation Code 32.0-36.0 [facility] MCV (RBC) [Entitic vol] 97.40 fL Invalid Interpretation Code 81.0-100.2 [facility] Platelet mean volume (Bld) [Entitic vol] 10.10 fL Invalid Interpretation Code 8.3-11.5 [facility] Platelets (Bld) [#/Vol] 214.0 10*3/uL Invalid Interpretation Code 150-400 [facility] RBC (Bld) [#/Vol] 4.970 10*6/uL Invalid Interpretation Code 4.34-5.61 [facility] WBC (Bld) [#/Vol] 5.90 10*3/uL Invalid Interpretation Code 3.9-10.3 [facility] No Panel Informationon 08-18 131.0 mg/dL Invalid Interpretation Code [facility] No Specimen, Unable to Void Invalid Interpretation Code [facility] No Panel Informationon 04-09 Diabetic Retinal Eye Exam Invalid Interpretation Code [facility] - Chemistry and C hemistry - challengeon 03-19-2021 Albumin [Mass/Vol] 4.60 g/dL Invalid Interpretation Code 3.7-4.5 [facility] Albumin/Globulin [Mass ratio] 1.4 {ratio} Invalid Interpretation Code 1.0-2.4 [facility] ALP [Catalytic activity/Vol] 75.0 U/L Invalid Interpretation Code 31-155 [facility] ALT [Catalytic activity/Vol] 41.0 U/L Invalid Interpretation Code 0-50 [facility] Anion gap [Moles/Vol] 14 mmol/L Invalid Interpretation Code 10-20 [facility] AST [Catalytic activity/Vol] 26.0 U/L Invalid Interpretation Code 0-40 [facility] Bilirubin [Mass/Vol] 0.40 mg/dL Invalid Interpretation Code 0.0-1.0 [facility] Bilirubin Ql (U) Negative Invalid Interpretation Code Negative [facility] Calcium [Mass/Vol] 10.10 mg/dL Invalid Interpretation Code 8.5-10.8 [facility] Chloride [Moles/Vol] 99.0 mmol/L Invalid Interpretation Code 100-112 [facility] CO2 [Moles/Vol] 28.0 mmol/L Invalid Interpretation Code 23-30 [facility] Creatinine [Mass/Vol] 0.90 mg/dL Invalid Interpretation Code 0.5-1.5 [facility] GFR/1.73 sq M.predicted among non-blacks MDRD (S/P/Bld) [Vol rate/Area] 87 mL/min/{1.73_m2} Invalid Interpretation Code [facility] Glucose [Mass/Vol] 135.0 mg/dL Invalid Interpretation Code 80-117 [facility] Ketones Ql (U) Negative Invalid Interpretation Code Negative [facility] Parathyrin.intact [Mass/Vol] 22 pg/mL Invalid Interpretation Code 12-65 [facility] pH (U) 6 [pH] Invalid Interpretation Code 5.0-9.0 [facility] Phosphate [Mass/Vol] 3.50 mg/dL Invalid Interpretation Code 2.5-4.5 [facility] Potassium [Moles/Vol] 4.50 mmol/L Invalid Interpretation Code 3.5-5.3 [facility] Protein [Mass/Vol] 7.80 g/dL Invalid Interpretation Code 6.3-7.9 [facility] Sodium [Moles/Vol] 136.0 mmol/L Invalid Interpretation Code 135-148 [facility] Specific gravity (U) [Rel density] 1.015 Invalid Interpretation Code 1.003-1.030 [facility] Urea nitrogen [Mass/Vol] 15.0 mg/dL Invalid Interpretation Code 7-25 [facility] Urea nitrogen/Creatinine [Mass ratio] 17 mg/mg Invalid Interpretation Code 6-20 [facility] Urobilinogen (U) [Mass/Vol] normal Invalid Interpretation Code normal [facility] - Hematology and Cell countson 03-19-2021 Erythrocyte distribution width (RBC) [Ratio] 12.80 % Invalid Interpretation Code 11.5-15.5 [facility] HbA1c (Bld) [Mass fraction] 6.40 % Invalid Interpretation Code 4.3-6.3 [facility] Hematocrit (Bld) [Volume fraction] 49.0 % Invalid Interpretation Code 37.8-51.0 [facility] Hemoglobin (Bld) [Mass/Vol] 16.60 g/dL Invalid Interpretation Code 12.6-17.0 [facility] Hemoglobin Ql (U) Negative Invalid Interpretation Code Negative [facility] MCH (RBC) [Entitic mass] 32.10 pg Invalid Interpretation Code 25.7-33.8 [facility] MCHC (RBC) [Mass/Vol] 33.90 g/dL Invalid Interpretation Code 32.0-36.0 [facility] MCV (RBC) [Entitic vol] 94.80 fL Invalid Interpretation Code 81.0-100.2 [facility] Platelet mean volume (Bld) [Entitic vol] 9.60 fL Invalid Interpretation Code 8.3-11.5 [facility] Platelets (Bld) [#/Vol] 257.0 10*3/uL Invalid Interpretation Code 150-400 [facility] RBC (Bld) [#/Vol] 5.170 10*6/uL Invalid Interpretation Code 4.34-5.61 [facility] WBC (Bld) [#/Vol] 6.90 10*3/uL Invalid Interpretation Code 3.9-10.3 [facility] - Specimen inform ationon 03-19-2021 Clarity (U) clear Invalid Interpretation Code Clear [facility] Color (U) yellow Invalid Interpretation Code yellow [facility] - Urinalysison Glucose Test strip (U) [Mass/Vol] 4+ Invalid Interpretation Code Negative [facility] Leukocyte esterase Test strip Ql (U) Negative Invalid Interpretation Code Negative [facility] Nitrite Ql (U) Negative Invalid Interpretation Code Negative [facility] Protein Ql (U) Negative Invalid Interpretation Code Negative [facility] No Panel Informationon 03-19 137.0 mg/dL Invalid Interpretation Code [facility] patient's meter brok e and doesn't have new one yet Invalid Interpretation Code 70-117 [facility] - Chemistry and C hemistry - challengeon 12-23-2020 Albumin (U) [Mass/Vol] < 12.0 Invalid Interpretation Code < 17.0 ug/mL [facility] Albumin [Mass/Vol] 4.40 g/dL Invalid Interpretation Code 3.7-4.5 [facility] Albumin/Globulin [Mass ratio] 1.5 {ratio} Invalid Interpretation Code 1.0-2.4 [facility] ALP [Catalytic activity/Vol] 69.0 U/L Invalid Interpretation Code 31-155 [facility] ALT [Catalytic activity/Vol] 30.0 U/L Invalid Interpretation Code 0-50 [facility] Anion gap [Moles/Vol] 13 mmol/L Invalid Interpretation Code 10-20 [facility] AST [Catalytic activity/Vol] 20.0 U/L Invalid Interpretation Code 0-40 [facility] Bilirubin [Mass/Vol] 0.40 mg/dL Invalid Interpretation Code 0.0-1.0 [facility] Bilirubin Ql (U) Negative Invalid Interpretation Code Negative [facility] Calcium [Mass/Vol] 9.80 mg/dL Invalid Interpretation Code 8.5-10.8 [facility] Chloride [Moles/Vol] 98.0 mmol/L Invalid Interpretation Code 100-112 [facility] Cholesterol [Mass/Vol] 207.0 mg/dL Invalid Interpretation Code 0-200 [facility] Cholesterol in HDL [Mass/Vol] 40.0 mg/dL Invalid Interpretation Code 36-100 [facility] Cholesterol in LDL [Mass/Vol] 100.0 mg/dL Invalid Interpretation Code 0-130 [facility] Cholesterol in VLDL [Mass/Vol] 67.0 mg/dL Invalid Interpretation Code 0-39 [facility] Cholesterol.total/C holesterol in HDL [Mass ratio] 5 {ratio} Invalid Interpretation Code [facility] CO2 [Moles/Vol] 29.0 mmol/L Invalid Interpretation Code 23-30 [facility] Creatinine (U) [Mass/Vol] 31.90 mg/dL Invalid Interpretation Code Not Estab. mg/dL [facility] Creatinine [Mass/Vol] 1.0 mg/dL Invalid Interpretation Code 0.5-1.5 [facility] GFR/1.73 sq M.predicted among non-blacks MDRD (S/P/Bld) [Vol rate/Area] 77 mL/min/{1.73_m2} Invalid Interpretation Code [facility] Glucose [Mass/Vol] 113.0 mg/dL Invalid Interpretation Code 80-117 [facility] Ketones Ql (U) Negative Invalid Interpretation Code Negative [facility] pH (U) 6 [pH] Invalid Interpretation Code 5.0-9.0 [facility] Potassium [Moles/Vol] 4.40 mmol/L Invalid Interpretation Code 3.5-5.3 [facility] Prostate specific Ag [Mass/Vol] 0.76 ng/mL Invalid Interpretation Code 0.00-4.00 [facility] Protein [Mass/Vol] 7.30 g/dL Invalid Interpretation Code 6.3-7.9 [facility] Sodium [Moles/Vol] 136.0 mmol/L Invalid Interpretation Code 135-148 [facility] Specific gravity (U) [Rel density] 1.005 Invalid Interpretation Code 1.003-1.030 [facility] Triglyceride [Mass/Vol] 334.0 mg/dL Invalid Interpretation Code 30-150 [facility] Urea nitrogen [Mass/Vol] 15.0 mg/dL Invalid Interpretation Code 7-25 [facility] Urea nitrogen/Creatinine [Mass ratio] 15 mg/mg Invalid Interpretation Code 6-20 [facility] Urobilinogen (U) [Mass/Vol] normal Invalid Interpretation Code normal [id number] Laboratory - Hematology and Cell countson 12-23-2020 Erythrocyte distribution width (RBC) [Ratio] 12.90 % Invalid Interpretation Code 11.5-15.5 [facility] HbA1c (Bld) [Mass fraction] 6.30 % Invalid Interpretation Code 4.3-6.3 [facility] Hematocrit (Bld) [Volume fraction] 48.0 % Invalid Interpretation Code 37.8-51.0 [facility] Hemoglobin (Bld) [Mass/Vol] 16.40 g/dL Invalid Interpretation Code 12.6-17.0 [facility] Hemoglobin Ql (U) Negative Invalid Interpretation Code Negative [facility] MCH (RBC) [Entitic mass] 32.20 pg Invalid Interpretation Code 25.7-33.8 [facility] MCHC (RBC) [Mass/Vol] 34.20 g/dL Invalid Interpretation Code 32.0-36.0 [facility] MCV (RBC) [Entitic vol] 94.10 fL Invalid Interpretation Code 81.0-100.2 [facility] Platelet mean volume (Bld) [Entitic vol] 9.30 fL Invalid Interpretation Code 8.3-11.5 [facility] Platelets (Bld) [#/Vol] 265.0 10*3/uL Invalid Interpretation Code 150-400 [facility] RBC (Bld) [#/Vol] 5.10 10*6/uL Invalid Interpretation Code 4.34-5.61 [facility] WBC (Bld) [#/Vol] 7.30 10*3/uL Invalid Interpretation Code 3.9-10.3 [facility] - Specimen inform ationon 12-23-2020 Clarity (U) clear Invalid Interpretation Code Clear [facility] Collection time (Andrei) [Date/time] 10:56 am Invalid Interpretation Code [facility] Color (U) yellow Invalid Interpretation Code yellow [facility] - Urinalysison Glucose Test strip (U) [Mass/Vol] 4+ Invalid Interpretation Code Negative [facility] Leukocyte esterase Test strip Ql (U) Negative Invalid Interpretation Code Negative [facility] Nitrite Ql (U) Negative Invalid Interpretation Code Negative [facility] Protein Ql (U) Negative Invalid Interpretation Code Negative [facility] No Panel Informationon 12-23 134.0 mg/dL Invalid Interpretation Code [facility] - Chemistry and C hemistry - challengeon 09-09-2020 Albumin/Globulin [Mass ratio] 1.2 {ratio} Invalid Interpretation Code 1.0-2.4 [facility] Bilirubin Ql (U) Negative Invalid Interpretation Code Negative [facility] Ketones Ql (U) Negative Invalid Interpretation Code Negative [facility] Urobilinogen (U) [Mass/Vol] normal Invalid Interpretation Code normal [facility] - Urinalysison Leukocyte esterase Test strip Ql (U) Negative Invalid Interpretation Code Negative [facility] Nitrite Ql (U) Negative Invalid Interpretation Code Negative [facility] Protein Ql (U) Negative Invalid Interpretation Code Negative [facility] Metabolic Panelon 09-09-2020 Albumin [Mass/Vol] 4.40 g/dL Invalid Interpretation Code 3.7-4.5 [facility] ALP [Catalytic activity/Vol] 81.0 U/L Invalid Interpretation Code 31-155 [facility] ALT [Catalytic activity/Vol] 57.0 U/L Invalid Interpretation Code 0-50 [facility] Anion gap [Moles/Vol] 13 mmol/L Invalid Interpretation Code 10-20 [facility] AST [Catalytic activity/Vol] 36.0 U/L Invalid Interpretation Code 0-40 [facility] Bilirubin [Mass/Vol] 0.60 mg/dL Invalid Interpretation Code 0.0-1.0 [facility] Calcium [Mass/Vol] 11.0 mg/dL Invalid Interpretation Code 8.5-10.8 [facility] Chloride [Moles/Vol] 97.0 mmol/L Invalid Interpretation Code 100-112 [facility] CO2 [Moles/Vol] 27.0 mmol/L Invalid Interpretation Code 23-30 [facility] Creatinine [Mass/Vol] 1.60 mg/dL Invalid Interpretation Code 0.5-1.5 [facility] GFR/1.73 sq M predicted among non-blacks MDRD (S/P/Bld) [Vol rate/Area] 45 mL/min/{1.73_m2} Invalid Interpretation Code [facility] Glucose [Mass/Vol] 148.0 mg/dL Invalid Interpretation Code 80-117 [facility] Glucose [Mass/Vol] Patient did not brin g strips for meter 70-117 [facility] HbA1c (Bld) [Mass fraction] 6.90 % Invalid Interpretation Code 4.3-6.3 [facility] Potassium [Moles/Vol] 4.90 mmol/L Invalid Interpretation Code 3.5-5.3 [facility] Protein [Mass/Vol] 8.20 g/dL Invalid Interpretation Code 6.3-7.9 [facility] Sodium [Moles/Vol] 132.0 mmol/L Invalid Interpretation Code 135-148 [facility] Urea nitrogen [Mass/Vol] 23.0 mg/dL Invalid Interpretation Code 7-25 [facility] Urea nitrogen/Creatinine [Mass ratio] 14 mg/mg Invalid Interpretation Code 6-20 [facility] No Panel Informationon 09-09 Patient did not brin g strips for meter Invalid Interpretation Code 70-117 [facility] Otheron 09-09-2020 Albumin/Globulin [Mass ratio] 1.2 (calc) 1.0-2.4 [facility] Bilirubin Ql (U) Negative Negative [facility] Glucose Test strip (U) [Mass/Vol] 4+ Invalid Interpretation Code Negative [facility] Hemoglobin Ql (U) Trace Invalid Interpretation Code Negative [facility] Nitrite Ql (U) Negative Negative [facility] pH (U) 5 [pH] Invalid Interpretation Code 5.0-9.0 [facility] Protein Ql (U) Negative Negative [facility] Urobilinogen Test strip (U) [Mass/Vol] normal normal [facility] 151.0 mg/dL Invalid Interpretation Code [facility] Urinalysison 09-09-2020 Clarity (U) Clear Invalid Interpretation Code Clear [facility] Color (U) yellow Invalid Interpretation Code yellow [facility] Ketones Ql (U) Negative Negative [facility] Leukocyte esterase Test strip Ql (U) Negative Negative [facility] Specific gravity (U) [Rel density] 1.015 Invalid Interpretation Code 1.003-1.030 [facility] Coding Summaryon 06-20-2020 Coding Summary CODING DATE: [facility] STATUS: Home PAYOR: Medicare APC DESCRIPTION [...] Bright Aguilera' Date Saved: 06/20/2020 12:49 pm [facility] Coding Summary CODING DATE: [facility] STATUS: Home PAYOR: Medicare APC DESCRIPTION [...] Aguilera' Date Saved: 06/20/2020 12:47 pm Normal [facility] .Auto Diff 06-17-2020 Auto Brule % 7 % Normal 07-22 [facility] Comment on above: Performed By: #### 7 [id number], [id number], [id number], [id number], [id number] #### [facility] (DEFAULT) [address] [place] [address] 13619 Baso Abs# 0.0 x10 Normal 0.0-0.2 [facility] Comment on above: Performed By: #### 7 [id number], [id number], [id number], [id number], [id number] #### [facility] (DEFAULT) [address] [place] [address] 15418 Basophils/100 WBC (Bld) 0.5 % Normal 0.2-2.0 [facility] Comment on above: Performed By: #### 7 [id number], 4837631, [id number], [id number], [id number] #### [facility] (DEFAULT) [address] [place] [address] 93406 Eos Abs# 0.2 x10 Normal 0.0-0.4 [facility] Comment on above: Performed By: #### 7 991912, 3091767, [id number], [id number], [id number] #### [facility] (DEFAULT) [address] [place] [address] 83461 Eosinophils/100 WBC (Bld) 2.3 % Normal 0.9-4.0 [facility] Comment on above: Performed By: #### 7 563386, 7146006, [id number], [id number], [id number] #### [facility] (DEFAULT) [address] [place] [address] 32102 Lymphocytes (Bld) [#/Vol] 2.3 x10 Normal 1.3-2.9 [facility] Comment on above: Performed By: #### 7 571457, 4598755, 93888159, [id number], [id number] #### [facility] (DEFAULT) [address] [place] [address] Lymphocytes/100 WBC (Bld) 25 % Normal 14-48 [facility] Comment on above: Performed By: #### 7 452251, 5772218, 99128397, [id number], [id number] #### [facility] (DEFAULT) [address] [place] [address] Brule Abs# 0.7 x10 Normal 0.0-0.8 [facility] Comment on above: Performed By: #### 7 813842, 4408611, 29205700, [id number], [id number] #### [facility] (DEFAULT) [address] [place] [address] Neut Abs# 6.0 x10 Normal 1.5-9.2 [facility] Comment on above: Performed By: #### 7 094688, 1490688, 23993441, [id number], [id number] #### [facility] (DEFAULT) [address] [place] [address] Neutrophils/100 WBC (Bld) 65 % Normal 44-88 [facility] Comment on above: Performed By: #### 7 118148, 5203297, 63839680, [id number], [id number] #### [facility] (DEFAULT) [address] [place] [address] .QC Respiratory Panel 2.1 (B ioFire)on 06-17-2020 Internal Control-Resp Panel 2.1(BioFire) Pass Normal [facility] Comment on above: Order Comment: Order ed by Chloe. [[id number]] Performed By: #### 6 [id number] #### [facility] (DEFAULT) [address] [place] [address] 80217 CBC w/ Auto Diffon 0 Erythrocyte distribution width (RBC) [Ratio] 12.9 % Normal 11.5-15.0 [facility] Comment on above: Performed By: #### 7 141635, 8058397, 84877694, [id number], [id number] #### [facility] (DEFAULT) [address] [place] [address] Hematocrit (Bld) [Volume fraction] 45.1 % Normal 34.8-51.9 [facility] Comment on above: Performed By: #### 7 875973, 8816920, 24729507, [id number], [id number] #### [facility] (DEFAULT) [address] [place] [address] Hemoglobin (Bld) [Mass/Vol] 15.6 g/dL Normal 11.8-17.7 [facility] Comment on above: Performed By: #### 7 899104, 7531129, 67980124, [id number], [id number] #### [facility] (DEFAULT) [address] [place] [address] Man Diff? Auto Normal [facility] Comment on above: Performed By: #### 7 627685, 6688929, 41506552, [id number], [id number] #### [facility] (DEFAULT) [address] [place] [address] MCH (RBC) [Entitic mass] 32 pg Normal 24-34 [facility] Comment on above: Performed By: #### 7 658598, 6456794, 42872126, [id number], [id number] #### [facility] (DEFAULT) [address] [place] [address] MCHC (RBC) [Mass/Vol] 35 g/dL Normal 26-37 [facility] Comment on above: Performed By: #### 7 870398, 9730895, 31383066, [id number], [id number] #### [facility] (DEFAULT) [address] [place] [address] MCV (RBC) [Entitic vol] 93 fL Normal 81-100 [facility] Comment on above: Performed By: #### 7 412387, 6005110, 97739943, [id number], [id number] #### [facility] (DEFAULT) [address] [place] [address] 84891 Platelet mean volume (Bld) [Entitic vol] 9.9 fL Normal 6.3-10.2 [facility] Comment on above: Performed By: #### 7 297834, 3740894, 41665399, [id number], [id number] #### [facility] (DEFAULT) [address] [place] [address] 22781 Platelets (Bld) [#/Vol] 277 x10 Normal 138-427 [facility] Comment on above: Performed By: #### 7 383274, 4333000, 74912066, [id number], [id number] #### [facility] (DEFAULT) [address] [place] [address] 66418 RBC (Bld) [#/Vol] 4.83 x10 Normal 3.70-5.30 [facility] Comment on above: Performed By: #### 7 673302, 3115301, 68188042, [id number], [id number] #### [facility] (DEFAULT) [address] [place] [address] 02975 WBC (Bld) [#/Vol] 9.3 x10 Normal 3.5-10.5 [facility] Comment on above: Performed By: #### 7 [id number], [id number], [id number], [id number], [id number] #### [facility] (DEFAULT) [address] [place] [address] Standardon 06-17-2020 eGFR Non AA >60 [facility] Comment on above: Performed By: #### 7 [id number], 9953267, [id number], [id number], [id number] #### [facility] (DEFAULT) [address] [place] [address] eGFR AA >60 [facility] Comment on above: Result Comment: Jr. Systems Administrator shannan Kidney disease could be indicated at eGFRs of less than 60 ml/min/1.73m2. Kidney Failure is indicated at less than 15 ml/min/1.73m2 Performed By: #### 7 [id number], 1262667, 33745549, [id number], [id number] #### [facility] (DEFAULT) [address] [place] [address] 12405 Albumin [Mass/Vol] 4.0 g/dL Normal 3.5-5.0 [facility] Comment on above: Performed By: #### 7 362896, 5368898, 74203593, [id number], [id number] #### [facility] (DEFAULT) [address] [place] [address] 95367 Albumin/Globulin [Mass ratio] 1.1 {ratio} Low 1.4-2.6 [facility] Comment on above: Performed By: #### 7 521038, 5355964, [id number], [id number], [id number] #### [facility] (DEFAULT) [address] [place] [address] Alk Phos 70 IU/L Normal 32-91 [facility] Comment on above: Performed By: #### 7 774085, 6772123, 94364165, [id number], [id number] #### [facility] (DEFAULT) [address] [place] [address] 92188 ALT/SGPT 42.0 IU/L Normal 17.0-63.0 [facility] Comment on above: Performed By: #### 7 047125, 9913778, 68152874, [id number], [id number] #### [facility] (DEFAULT) [address] [place] [address] 02266 Anion gap [Moles/Vol] 13.0 mmol/L Normal 5.0-19.0 [facility] Comment on above: Performed By: #### 7 484080, 3923742, 09020777, [id number], [id number] #### [facility] (DEFAULT) [address] [place] [address] 43646 AST/SGOT 27 IU/L Normal 15-41 [facility] Comment on above: Performed By: #### 7 042184, 5399616, 79326634, [id number], [id number] #### [facility] (DEFAULT) [address] [place] [address] 03661 Bili Total 0.7 mg/dL Normal 0.3-1.2 [facility] Comment on above: Performed By: #### 7 278181, 4383535, 32419214, [id number], [id number] #### [facility] (DEFAULT) [address] [place] [address] 02112 Calcium [Mass/Vol] 9.0 mg/dL Normal 8.9-10.3 [facility] Comment on above: Performed By: #### 7 938721, 3123167, 19616359, [id number], [id number] #### [facility] (DEFAULT) [address] [place] [address] 61196 Chloride [Moles/Vol] 102 mmol/L Normal 101-111 [facility] Comment on above: Performed By: #### 7 374759, 7137925, 55153757, [id number], [id number] #### [facility] (DEFAULT) [address] [place] [address] 16751 CO2 [Moles/Vol] 25 mmol/L Normal 21-32 [facility] Comment on above: Performed By: #### 7 965890, 3292981, 39829973, [id number], [id number] #### [facility] (DEFAULT) [address] [place] [address] 69217 Creatinine [Mass/Vol] 0.97 mg/dL Normal 0.90-1.30 [facility] Comment on above: Performed By: #### 7 192157, 7999973, 16986445, [id number], [id number] #### [facility] (DEFAULT) [address] [place] [address] 78191 Globulin (S) [Mass/Vol] 3.5 g/dL Normal 1.5-4.3 [facility] Comment on above: Performed By: #### 7 195195, 0990148, 00041404, [id number], [id number] #### [facility] (DEFAULT) [address] [place] [address] 30388 Glucose [Mass/Vol] 123.0 mg/dL High 74.0-118.0 [facility] Comment on above: Performed By: #### 7 382176, 5642671, 05802734, [id number], [id number] #### [facility] (DEFAULT) [address] [place] [address] 52068 Osmolality [Osmolality] 276 mOsm/L [facility] Comment on above: Performed By: #### 7 987875, 0550006, 43240984, [id number], [id number] #### [facility] (DEFAULT) [address] [place] [address] 12097 Potassium [Moles/Vol] 3.6 mmol/L Normal 3.6-5.1 [facility] Comment on above: Performed By: #### 7 881392, 8582976, 97314110, [id number], [id number] #### [facility] (DEFAULT) [address] [place] [address] 11940 Protein [Mass/Vol] 7.5 g/dL Normal 6.5-8.1 [facility] Comment on above: Performed By: #### 7 417009, 7285988, 83587089, [id number], [id number] #### [facility] (DEFAULT) [address] [place] [address] 44447 Sodium [Moles/Vol] 136.0 mmol/L Normal 136.0-144.0 [facility] Comment on above: Performed By: #### 7 434143, 7622612, 84056737, [id number], [id number] #### [facility] (DEFAULT) [address] [place] [address] 00672 Urea nitrogen [Mass/Vol] 19 mg/dL Normal 8-26 [facility] Comment on above: Performed By: #### 7 516296, 2601121, 38797759, [id number], [id number] #### [facility] (DEFAULT) [address] [place] [address] 99194 Urea nitrogen/Creatinine [Mass ratio] 20.0 mg/mg High 4.6-16.2 [facility] Comment on above: Performed By: #### 7 745490, 8683343, 45110582, [id number], [id number] #### [facility] (DEFAULT) [address] [place] [address] 41503 D-Dimeron 06-17-2020 D-Dimer 0.23 mg/L FEU Normal 0.19-0.50 [facility] Comment on above: Result Comment: The INNOVANCE [...] Liver cirrhosis ? Performed By: #### 7 963131, 5759004, 15742077, [id number], [id number] #### [facility] (DEFAULT) [address] [place] [address] 90981 ED Clinical Summaryon 2019 ED Clinical Summary [facility] - Emergency Department [address] [place] [address] ED Clinical Summary PERSON INFORMATION Name: GEREMIAS MELCHOR Age: 54 Years Sex: MALE : 1965 MRN: Acct#: Visit Reason: Shortness of breath; SOB Arrival: 06/17/2020 15:26:17 Discharge: 06/17/2020 17:58:00 LOS: 000 02:32 Check In: 06/17/2020 15:26:17 Checkout:06/17/2020 17:58:00 Address: [address] [place] [address] PCP: Ericka Muniz MD PROVIDER INFORMATION Provider [...] Adult Follow-Up: With: Address: When: Ericka Taylor [place] [id number] Business (1) Within 3 to 5 days DIAGNOSIS: Viral URI with cough Patient Understands: Yes - Patient/family/caregiver verbalizes understanding of instructions given Comment: [facility] ED Note - Physicianon 2019 ED [...] % Auto Lymph % 25 % Auto Brule % 7 % Auto Eos % 2.3 % Auto Baso % 0.5 % Neut Abs# 6.0 x103/mcL Lymph Abs# 2.3 x103/mcL Brule Abs# 0.7 x103/mcL Eos Abs# 0.2 x103/mcL [...] and Plan Diagnosis Viral URI with cough ([id number] J06.9, Discharge, Medical) Plan Condition: Stable. Disposition: [...] [Verified on: 06/17/2020 18:26 EST] Otilia Francois [facility] ED Note-Nursingon 06-17-2020 ED [facility]. Ambulated with a [...] feels more short of breath than normal. [facility] ED Patient Education Noteon 06-17-2020 ED [...] to help relieve symptoms, such as: ? Grsq-iyh-zwbuwqu cold medicines. ? Cough suppressants. Coughing is [...] other clear broths. General instructions ? Take voer-lbu-rqftyec and prescription medicines only as told by [...] and water are not available, use hand b2b appointment setter. ? Avoid touching your mouth, face, eyes, [...] 12/21/2001 Document Revised: 07/05/2019 Document Reviewed: 02/10/2018 [employer] Patient Education ? 2019 [employer]. ENT Cough, Adult Coughing is a reflex [...] these instructions at home: Medicines ? Take vucb-uxp-zfdlsgy and prescription medicines only as told by [...] a condition that needs treatment. ? Take rhjv-fph-rwunodk and prescription medicines only as told by [...] Reviewed: 07/16/2019 Elsevier Patient Education ? 2019 [employer] Normal [facility] ED Patient Summaryon 020 ED Patient Summary [facility] - Emergency Department [address] [place] [address] PATIENT DISCHARGE INSTRUCTIONS Patient Information Name: GEREMIAS MELCHOR Age: 54 Years Date of : 1965 [facility]: [id number] Reason For Visit: Shortness of breath; SOB Arrival Time: 06/17/2020 15:26:17 Primary Care Physician: Ericka Muniz MD Attending Physician: Landon Vegas MD Comment: Visit Diagnosis: Diagnoses This Visit Shortness of breath ([id number]) Viral URI with cough (J06.9) Prescription Information: If you have been given a prescription for narcotics, seek immediate medical attention if you have any difficulty breathing or any sudden status changes such as confusion and sleepiness. If you or anyone you know is experiencing suicidal thoughts, mental health, alcohol and/or drug addiction problems; contact the [facility] 31/01 Crisis Hotline -Gvcv 4HOPE to 528401. If you received any narcotics, sedation, or [...] legal documents With: Address: When: Ericka Muniz [address] [place] [address] Business (1) Within 3 to 5 days Medication Information: The exam and treatment you received today in the [facility] Emergency Department were for an urgent problem and are not intended as complete care. It is important for you to follow up with a doctor, nurse practitioner, or physician?s seed laboratory assistant for ongoing care. If your symptoms [...] so we can reach you if necessary. [facility] Emergency Department has provided you with a complete list of medications post discharge. Please inform your primary care sales representative/provider of your visit and for further instruction [...] to help relieve symptoms, such as: ? Uteq-ikw-sfmwxie cold medicines. ? Cough suppressants. Coughing is [...] other clear broths. General instructions ? Take esmt-teq-gprjymu and prescription medicines only as told by [...] and water are not available, use hand b2b appointment setter. ? Avoid touching your mouth, face, eyes, [...] 12/21/2001 Document Revised: 07/05/2019 Document Reviewed: 02/10/2018 [employer] Patient Education ? 2020 [employer] Cough, Adult Coughing is a reflex [...] these instructions at home: Medicines ? Take hvlj-xvb-oqhkdge and prescription medicines only as told by [...] a condition that needs treatment. ? Take icix-aic-mqltffy and prescription medicines only as told by [...] 12/24/2011 Document Revised: 07/16/2019 Document Reviewed: 07/16/2019 [employer] Patient Education ? 2019 [employer]. Viruses or Bacteria What?s got you sick? [...] Disease Control and Prevention March 2014 Normal [facility] Extra Redon 06-17-2020 Tube Collected Yes [facility] Comment on above: Performed By: #### 7 [id number], 4429939, [id number], [id number], [id number] #### [facility] (DEFAULT) [address] [place] [address] TnI HSon 06-17-2020 Troponin I High Sensitivity 4 pg/mL Normal <=20 [facility] Comment on above: Result Comment: Male Baseline Delta 1Hr (Note pg/mL=ng/L) <20pg/mL 50-60% >20pg/mL 20% Female Baseline Delta 1Hr <15pg/mL 50-60% >15pg/mL 20% Other Baseline Delta 1Hr <18ng/mL 50-60% >18ng/mL 20% ([place] [employer] Guidelines February 2018) Performed By: #### 7 516140, 7966903, 96981458, [id number], [id number] #### [facility] (DEFAULT) [address] [place] [address] Metabolic Panelon 04-08-2020 ALT [Catalytic activity/Vol] 50.0 U/L Invalid Interpretation Code [facility] Bilirubin [Mass/Vol] 0.3 mg/dL 0.0-1.0 [facility] HbA1c (Bld) [Mass fraction] 6.6 % 4.3-6.3 [facility] HbA1c (Bld) [Mass fraction] 6.60 % Invalid Interpretation Code [facility] Albumin [Mass/Vol] 4.50 g/dL Invalid Interpretation Code [facility] AST [Catalytic activity/Vol] 31.0 U/L Invalid Interpretation Code [facility] No Panel Informationon 04-08 6.6 Invalid Interpretation Code 4.3-6.3 [facility] 0.3 Invalid Interpretation Code 0.0-1.0 [facility] Negative Invalid Interpretation Code Negative [facility] Otheron 04-08-2020 Negative Negative [facility] 4+ Invalid Interpretation Code Negative [facility] Clear Invalid Interpretation Code Clear [facility] normal Invalid Interpretation Code normal [facility] yellow Invalid Interpretation Code yellow [facility] 50 0-50 [facility] 6 Invalid Interpretation Code 5.0-9.0 [facility] 31 Invalid Interpretation Code 0-40 [facility] 78 Invalid Interpretation Code 31-155 [facility] 1.010 Invalid Interpretation Code 1.003-1.030 [facility] 1.5 Invalid Interpretation Code 1.0-2.4 [facility] 4.5 Invalid Interpretation Code 3.7-4.5 [facility] 7.5 Invalid Interpretation Code 6.3-7.9 [facility] 143 Invalid Interpretation Code [facility] 115.0 mg/dL Invalid Interpretation Code <140 [facility] ls Invalid Interpretation Code [facility] MRI KNEE RIGHT WO CONTRASTon 03-25-2020 MRI [...] Jos Martins MD 03/25/20 Final result Normal [facility] Inner free edge degeneration of the [...] suggestive of sprains. No definite tear identified. [facility], [place] EXAMINATION: MRI OF THE RIGHT KNEE [...] are most compatible with a microtrabecular infraction. [facility]- [place], [place] E[place], pn Incoming Radiant Results From [employer] - 03/25/2020 3:02 PM EDT EXAMINATION: MRI [...] suggestive of sprains. No definite tear identified. [place], [place] MRI SHOULDER RIGHT WO CONTRA STon [...] approximately 7 mm in greatest AP dimension. Gezeaedr-le-epodal underlying supraspinatus tendinopathy and granulation tissue. Rhpy-cw-nlnamgli underlying infraspinatus tendinopathy. Mild subscapularis tendinopathy. Teres [...] 6. No paralabral cyst formation. GLENOHUMERAL JOINT: Anxt-ey-lshmanty glenohumeral chondromalacia. Small amount of fluid in [...] dimension with tear gap measuring 1.5 cm. Dcjejupv-vq-ecmlhx underlying supraspinatus tendinopathy and granulation tissue. Rliw-ad-hhfieqhl underlying infraspinatus tendinopathy. 2. Mild subscapularis tendinopathy. 3. Mild atrophy and fatty degeneration of subscapularis. 4. Mild diffuse labral degeneration. Degenerative tearing along the superior labrum. 5. Cgnj-jq-sqtwmktd glenohumeral chondromalacia. 6. Mild degenerative change of the right AC joint. 7. Prior biceps tenodesis. 8. Susceptibility artifact and marrow edema surrounding a stress riser at the anterior humeral head. Interpreted by: Rodrigo Purcell MD Signed by: Rodrigo Purcell MD 02/12/20 Final result Normal [facility] 1. Prior rotator cuf f repair. Region of full-thickness tearing of the critical zone along mid and posterior supraspinatus measuring 7 mm in greatest AP dimension with tear gap measuring 1.5 cm. Srgfpngk-vy-kbamqs underlying supraspinatus tendinopathy and granulation tissue. Nymc-si-vxvxiace underlying infraspinatus tendinopathy. 2. Mild subscapularis tendinopathy. 3. Mild atrophy and fatty degeneration of subscapularis. 4. Mild diffuse labral degeneration. Degenerative tearing along the superior labrum. 5. Wziw-ub-ycvetnpk glenohumeral chondromalacia. 6. Mild degenerative change of the right AC joint. 7. Prior biceps tenodesis. 8. Susceptibility artifact and marrow edema surrounding a stress riser at the anterior humeral head. [facility], [place] EXAMINATION: MRI OF THE RIGHT SHOULDER [...] approximately 7 mm in greatest AP dimension. Wwfhqffn-zc-ruikkq underlying supraspinatus tendinopathy and granulation tissue. Iypi-va-lrwsfrdv underlying infraspinatus tendinopathy. Mild subscapularis tendinopathy. Teres [...] 6. No paralabral cyst formation. GLENOHUMERAL JOINT: Qutc-cl-evhvtrvp glenohumeral chondromalacia. Small amount of fluid in [...] unremarkable in appearance. No right axillary lymphadenopathy. [facility], pn Incoming Radiant Results From [employer] - 02/12/2020 3:46 PM EDT EXAMINATION: MRI [...] approximately 7 mm in greatest AP dimension. Hrlqpbbg-gc-qewqsd underlying supraspinatus tendinopathy and granulation tissue. Cutd-pm-nhhncaen underlying infraspinatus tendinopathy. Mild subscapularis tendinopathy. Teres [...] 6. No paralabral cyst formation. GLENOHUMERAL JOINT: Ovlk-pw-zhvgsqfg glenohumeral chondromalacia. Small amount of fluid in [...] dimension with tear gap measuring 1.5 cm. Zcbguwxs-se-xoijzc underlying supraspinatus tendinopathy and granulation tissue. Cznc-uj-ldffafrh underlying infraspinatus tendinopathy. 2. Mild subscapularis tendinopathy. 3. Mild atrophy and fatty degeneration of subscapularis. 4. Mild diffuse labral degeneration. Degenerative tearing along the superior labrum. 5. Bsng-la-nvgskidz glenohumeral chondromalacia. 6. Mild degenerative change of the right AC joint. 7. Prior biceps tenodesis. 8. Susceptibility artifact and marrow edema surrounding a stress riser at the anterior humeral head. [place], [place] Glucose, Whole Bloodon 12-27 Glucose [Mass/Vol] 113 mg/dL High 74 - 100 mg/dL [place] Interpretation and review of laboratory results Abnormal [place] BUNon 12-26-2019 Urea nitrogen [Mass/Vol] 16 mg/dL 6 - 20 mg/dL [place] BUN (Urea N)on 12-26-2019 Urea nitrogen [Mass/Vol] 16 mg/dL Normal 6-20 [facility] Comment on above: Performed By: #### H CT, BUN, CREG, GLU, LYTE #### [facility] [address] [place] [address] [employer] Fighter Crash Fire: Domingo Rayo MD Creatinine w/GFRon 0 (cont.) Normal [facility] Comment on above: Result Comment: Aver age GFR for 50-59 years old: 93 mL/min/1.73sq m Chronic Kidney Disease: <60 mL/min/1.73sq m Kidney failure: <15 mL/min/1.73sq m eGFR calculated using average adult body mass. Additional eGFR calculator available at: http://www.[employer].AngelList/multiple_crcl_2012.htm Performed By: #### H CT, BUN, CREG, GLU, LYTE #### [facility] [address] [place] [address] [employer]: Domingo Rayo MD Creatinine [Mass/Vol] 1.15 mg/dL Normal 0.70-1.20 [facility] Comment on above: Performed By: #### H CT, BUN, CREG, GLU, LYTE #### [facility] [address] [place] [address] [employer]: Domingo Rayo MD GFR, Amer >60 Normal >60 [facility] Comment on above: Performed By: #### H CT, BUN, CREG, GLU, LYTE #### [facility] [address] [place] [address] [employer]: Domingo Rayo MD GFR,non Amer >60 Normal >60 [facility] Comment on above: Performed By: #### H CT, BUN, CREG, GLU, LYTE #### [facility] [address] [place] [address] [employer]: Domingo Rayo MD Staging: Normal [facility] Comment on above: Result Comment: Stag e 1: Some kidney damage normal GFR Stage 2: Mild kidney damage GFR 60-89 Stage 3: Moderate kidney damage GFR 30-59 Stage 4: Severe kidney damage GFR 15-29 Stage 5: Severe kidney damage GFR <15 ESRD - chronic treatment by dialysis or transplant Performed By: #### H CT, BUN, CREG, GLU, LYTE #### [facility] [address] [place] [address] [employer]: Domingo Rayo MD Creatinine, Serumon 12-26-19 Creatinine [Mass/Vol] 1.15 mg/dL 0.7 - 1.2 mg/dL [place] GFR >60 >60 mL/min [place] GFR Non- >60 >60 mL/min [place] Electrolyte Panelon 12-26-19 Anion gap [Moles/Vol] 17 mmol/L 9 - 17 mmol/L [place] Chloride [Moles/Vol] 95 mmol/L Low 98 - 107 mmol/L [place] CO2 [Moles/Vol] 24 mmol/L 20 - 31 mmol/L [place] Potassium [Moles/Vol] 3.7 mmol/L 3.7 - 5.3 mmol/L [place] Sodium [Moles/Vol] 136 mmol/L 135 - 144 mmol/L [place] Electrolyteson 12-26-2019 Anion gap [Moles/Vol] 17 mmol/L Normal 03-27 [facility] Comment on above: Performed By: #### H CT, BUN, CREG, GLU, LYTE #### [facility] [address] [place], [place] [id number] [employer] Fire: Domingo Rayo MD Chloride [Moles/Vol] 95 mmol/L Low 98-107 [facility] Comment on above: Performed By: #### H CT, BUN, CREG, GLU, LYTE #### [facility] [address] [place] [address] [employer] Fighter [employer]: Domingo Rayo MD CO2 [Moles/Vol] 24 mmol/L Normal 20-31 [facility] Comment on above: Performed By: #### H CT, BUN, CREG, GLU, LYTE #### [facility] [address] [place] [address] [employer]: Domingo Rayo MD Potassium [Moles/Vol] 3.7 mmol/L Normal 3.7-5.3 [facility] Comment on above: Performed By: #### H CT, BUN, CREG, GLU, LYTE #### [facility] [address] [place] [facility] [employer] Fighter [employer]: Domingo Rayo MD Sodium [Moles/Vol] 136 mmol/L Normal 135-144 [facility] Comment on above: Performed By: #### H CT, BUN, CREG, GLU, LYTE #### [facility] [address] [place] [address] [employer]: Domingo Rayo MD Glucoseon 12-26-2019 Glucose [Mass/Vol] 107 mg/dL High 70-99 [facility] Comment on above: Performed By: #### H CT, BUN, CREG, GLU, LYTE #### [facility] [address] [place] [address] [employer]: Domingo Rayo MD Glucose, randomon 12-26-2019 Glucose [Mass/Vol] 107 mg/dL High 70 - 99 mg/dL [facility], [place] Hematocriton 12-26-2019 Hematocrit (Bld) [Volume fraction] 47.4 % Normal 40.7-50.3 [facility] Comment on above: Performed By: #### H CT, BUN, CREG, GLU, LYTE #### [facility] [address] [place] [address] [employer]: Domingo Rayo MD Hematocrit (Bld) [Volume fraction] 47.4 % 40.7 - 50.3 % [place] Metabolic Panelon 12-26-2019 GFR/1.73 sq M predicted among non-blacks MDRD (S/P/Bld) [Vol rate/Area] [place] Comment on above: Average GFR for 50-5 9 years old: 93 mL/min/1.73sq m Chronic Kidney Disease: <60 mL/min/1.73sq m Kidney failure: <15 mL/min/1.73sq m eGFR calculated using average adult body mass. Additional eGFR calculator available at: http://www.[employer]_crcl_2012.htm Stage 1: Some kidney damage normal GFR Stage 2: Mild kidney damage GFR 60-89 Stage 3: Moderate kidney damage GFR 30-59 Stage 4: Severe kidney damage GFR 15-29 Stage 5: Severe kidney damage GFR <15 ESRD - chronic treatment by dialysis or transplant Otheron 12-26-2019 Interpretation and review of laboratory results Abnormal [place] COVID-19on 12-25-2019 SARS-CoV-2 Not Detected Not Detected [place], [place] Comment on above: The specimen is NEGATIVE for SARS-CoV-2, the novel coronavirus associated with COVID-19. A negative result does not rule out COVID-19. This test has been authorized by the FDA under an Emergency Use Authorization (EUA) for use by authorized laboratories. Fact sheet for Healthcare Providers: https://www.fda.gov/media/612366/download Fact sheet for Patients: https://www.fda.gov/media/790720/download METHODOLOGY: RT-PCR SARS-CoV-2, PCR [place], [place] SARS-CoV-2, Rapid [facility] [place] Source .NASOPHARYNGEAL SWAB [place], [place] [id number] 12-25-2019 SARS-CoV-2,Rapid Normal [facility] Comment on above: Performed By: #### C OVID #### [facility] [address] [place] [address] [employer] Rescue [employer] Fighter Crash Fire: Sam Jacobs MD [facility] [address] [place], [place] [address] And Rescue Fire Fighter Crash Fire: Domingo Rayo MD SARS-CoV-2 [facility] Comment on above: Performed By: #### C OVID #### [facility] [address] [place] [address] And Rescue [employer] Fighter Crash Fire: Sam Jacobs MD [facility] [address] [place] [address] [address] [place], [place] [address] And Rescue [employer] Fighter Crash Fire: Domingo Rayo MD SARS-CoV-2 Not Detected [facility] Comment on above: Result Comment: The specimen is NEGATIVE for SARS-CoV-2, the novel coronavirus associated with COVID-19. A negative result does not rule out COVID-19. This test has been authorized by the FDA under an Emergency Use Authorization (EUA) for use by authorized laboratories. Fact sheet for Healthcare Providers: https://www.fda.gov/media/485868/download Fact sheet for Patients: https://www.fda.gov/media/798862/download METHODOLOGY: RT-PCR Performed By: #### C OVID #### [facility] [address] [place] [address] And Rescue [employer] Fighter Crash Fire: Sam Jacobs MD [facility] [address] [place], [place] [address] And Rescue [employer] Fighter Crash Fire: Domingo Rayo MD EKG 12 [place] 12-24-2019 Atrial Rate 92 BPM [facility], [place] P [place]le 52 degrees [facility], [place] P-R Interval 154 ms [facility] [place], [place] Q-T Interval 360 ms [facility] [place] QRS Duration 96 ms [facility], [place] QTc Calculation (Bazett) 445 ms [facility] [place], [place] R [place]helle 34 degrees [facility] [place], [place] T [place] 46 degrees [facility] [place] Ventricular Rate 92 BPM [place], [place] Normal sinus rhythm Normal ECG No previous ECGs available Confirmed by Federico Burks MD ([id number]) on 12/24/2019 4:59:35 PM [place], [place] Ezekiel, Mhpn Incoming E kg Results From Ge [place] - 12/24/2019 4:59 PM EDT Normal sinus rhythm Normal ECG No previous ECGs available Confirmed by Federico Burks MD ([id number]) on 12/24/2019 4:59:35 PM [facility] JACQUELINE [id number] 12-24-2019 SARS-CoV-2 Source .NASOPHARYNGEAL SWAB Normal [facility] Comment on above: Performed By: #### C OVID #### [facility] [place] [facility] [address] [place] [address] And Rescue [employer] Fighter Crash Fire: Sam Jacobs MD [facility] [address] [place] [address] And Rescue Fire Fighter Crash Fire: Domingo Rayo MD Laboratory - Chemistry and C hemistry - challengeon 12-20-2019 Bilirubin Ql (U) Negative Invalid Interpretation Code Negative [facility] Urobilinogen (U) [Mass/Vol] normal Invalid Interpretation Code normal [facility] Laboratory - Hematology and Cell countson 12-20-2019 Hemoglobin Ql (U) Negative Invalid Interpretation Code Negative [facility] Laboratory - Urinalysison Leukocyte esterase Test strip Ql (U) Negative Invalid Interpretation Code Negative [facility] Nitrite Ql (U) Negative Invalid Interpretation Code Negative [facility] Protein Ql (U) Negative Invalid Interpretation Code Negative [facility] Metabolic Panelon 12-20-2019 Anion gap [Moles/Vol] 20 mmol/L Invalid Interpretation Code 10-20 [facility] Calcium [Mass/Vol] 9.10 mg/dL Invalid Interpretation Code 8.5-10.8 [place] [facility] Chloride [Moles/Vol] 97.0 mmol/L Invalid Interpretation Code 100-112 [place] [facility] CO2 [Moles/Vol] 23.0 mmol/L Invalid Interpretation Code 23-30 [facility] [employer] Creatinine [Mass/Vol] 1.0 mg/dL Invalid Interpretation Code 0.5-1.5 [facility] [employer] GFR/1.73 sq M predicted among non-blacks MDRD (S/P/Bld) [Vol rate/Area] 78 mL/min/{1.73_m2} Invalid Interpretation Code [facility] [employer] Glucose [Mass/Vol] 90.0 mg/dL Invalid Interpretation Code 80-117 [facility] [employer] HbA1c (Bld) [Mass fraction] 6.80 % Invalid Interpretation Code 4.3-6.3 [place] [facility] Potassium [Moles/Vol] 4.10 mmol/L Invalid Interpretation Code 3.5-5.3 [place] [facility] Sodium [Moles/Vol] 136.0 mmol/L Invalid Interpretation Code 135-148 [place] [facility] Urea nitrogen [Mass/Vol] 16.0 mg/dL Invalid Interpretation Code 7-25 [place] [facility] Urea nitrogen/Creatinine [Mass ratio] 16 mg/mg Invalid Interpretation Code 6-20 [place] [facility] Otheron 12-20-2019 Bilirubin Ql (U) Negative Negative [facility] [employer] Glucose Test strip (U) [Mass/Vol] 4+ Invalid Interpretation Code Negative [facility] [employer] Hemoglobin Ql (U) Negative Negative [facility] [employer] Nitrite Ql (U) Negative Negative [facility] pH (U) 5 [pH] Invalid Interpretation Code 5.0-9.0 [facility] Protein Ql (U) Negative Negative [facility] Urobilinogen Test strip (U) [Mass/Vol] normal normal [facility] 148 [facility] 148.0 mg/dL Invalid Interpretation Code [facility] Urinalysison 12-20-2019 Clarity (U) clear Invalid Interpretation Code Clear [facility] Color (U) yellow Invalid Interpretation Code yellow [facility] Ketones Ql (U) 1+ Invalid Interpretation Code Negative [facility] Leukocyte esterase Test strip Ql (U) Negative Negative [facility] Specific gravity (U) [Rel density] 1.010 Invalid Interpretation Code 1.003-1.030 [facility] 11-19-2019 Cholesterol [Mass/Vol] 153.0 mg/dL Invalid Interpretation Code 0-200 [facility] Cholesterol in HDL [Mass/Vol] 56.0 mg/dL Invalid Interpretation Code 36-100 [facility] Cholesterol in LDL [Mass/Vol] 80.0 mg/dL Invalid Interpretation Code 0-130 [facility] Triglyceride [Mass/Vol] 84.0 mg/dL Invalid Interpretation Code 30-150 [facility] Metabolic Panelon 11-19-2019 Albumin [Mass/Vol] 4.60 g/dL Invalid Interpretation Code 3.7-4.5 [facility] ALP [Catalytic activity/Vol] 75.0 U/L Invalid Interpretation Code 31-155 [facility] ALT [Catalytic activity/Vol] 54.0 U/L Invalid Interpretation Code 0-50 [facility] Anion gap [Moles/Vol] 18 mmol/L Invalid Interpretation Code 10-20 [facility] AST [Catalytic activity/Vol] 37.0 U/L Invalid Interpretation Code 0-40 [facility] Bilirubin [Mass/Vol] 0.50 mg/dL Invalid Interpretation Code 0.0-1.0 [facility] Calcium [Mass/Vol] 9.40 mg/dL Invalid Interpretation Code 8.5-10.8 [facility] Chloride [Moles/Vol] 99.0 mmol/L Invalid Interpretation Code 100-112 [facility] CO2 [Moles/Vol] 27.0 mmol/L Invalid Interpretation Code 23-30 [facility] Creatinine [Mass/Vol] 1.0 mg/dL Invalid Interpretation Code 0.5-1.5 [facility] GFR/1.73 sq M predicted among non-blacks MDRD (S/P/Bld) [Vol rate/Area] 78 mL/min/{1.73_m2} Invalid Interpretation Code [facility] Glucose [Mass/Vol] 120.0 mg/dL Invalid Interpretation Code 80-117 [facility] HbA1c (Bld) [Mass fraction] 6.80 % Invalid Interpretation Code 4.3-6.3 [facility] Potassium [Moles/Vol] 4.0 mmol/L Invalid Interpretation Code 3.5-5.3 [facility] Protein [Mass/Vol] 7.80 g/dL Invalid Interpretation Code 6.3-7.9 [facility] Sodium [Moles/Vol] 140.0 mmol/L Invalid Interpretation Code 135-148 [facility] Urea nitrogen [Mass/Vol] 13.0 mg/dL Invalid Interpretation Code 7-25 [facility] Urea nitrogen/Creatinine [Mass ratio] 13 mg/mg Invalid Interpretation Code 6-20 [facility] Otheron 11-19-2019 Albumin (U) [Mass/Vol] 22.3 Invalid Interpretation Code <17.0 [facility] Albumin/Globulin [Mass ratio] 1.4 {ratio} Invalid Interpretation Code 1.0-2.4 [facility] Cholesterol in VLDL [Mass/Vol] 17.0 mg/dL Invalid Interpretation Code 0-39 [facility] Cholesterol.total/C holesterol in HDL [Mass ratio] 3 {ratio} Invalid Interpretation Code [facility] 148 [id number] 148.0 mg/dL Invalid Interpretation Code [facility] 54.0 U/L 0-50 [facility] Urinalysison 11-19-2019 Albumin/Creatinine DL <= 20 mg/L (U) [Mass ratio] 29.8 mg/g Invalid Interpretation Code 0.0-30.0 [facility] Creatinine (U) [Mass/Vol] 74.90 mg/dL Invalid Interpretation Code Not Estab. mg/dL [facility] Metabolic Panelon 08-28-2019 Anion gap [Moles/Vol] 16 mmol/L Invalid Interpretation Code 10-20 [facility] Calcium [Mass/Vol] 9.70 mg/dL Invalid Interpretation Code 8.5-10.8 [facility] Chloride [Moles/Vol] 100.0 mmol/L Invalid Interpretation Code 100-112 [facility] CO2 [Moles/Vol] 27.0 mmol/L Invalid Interpretation Code 23-30 [facility] Creatinine [Mass/Vol] 1.10 mg/dL Invalid Interpretation Code 0.5-1.5 [facility] GFR/1.73 sq M predicted among non-blacks MDRD (S/P/Bld) [Vol rate/Area] 70 mL/min/{1.73_m2} Invalid Interpretation Code [facility] Glucose [Mass/Vol] 137.0 mg/dL Invalid Interpretation Code 80-117 [facility] Potassium [Moles/Vol] 4.0 mmol/L Invalid Interpretation Code 3.5-5.3 [facility] Sodium [Moles/Vol] 139.0 mmol/L Invalid Interpretation Code 135-148 [facility] Urea nitrogen [Mass/Vol] 26.0 mg/dL Invalid Interpretation Code 7-25 [facility] Urea nitrogen/Creatinine [Mass ratio] 24 mg/mg Invalid Interpretation Code 6-20 [facility] Laboratory - Chemistry and C hemistry - challengeon 08-21-2019 Bilirubin Ql (U) Negative Invalid Interpretation Code Negative [facility] Ketones Ql (U) Negative Invalid Interpretation Code Negative [facility] Urobilinogen (U) [Mass/Vol] normal Invalid Interpretation Code normal [facility] Laboratory - Urinalysison Nitrite Ql (U) Negative Invalid Interpretation Code Negative [facility] Metabolic Panelon 08-21-2019 Anion gap [Moles/Vol] 18 mmol/L Invalid Interpretation Code 10-20 [facility] Calcium [Mass/Vol] 9.70 mg/dL Invalid Interpretation Code 8.5-10.8 [facility] Chloride [Moles/Vol] 97.0 mmol/L Invalid Interpretation Code 100-112 [facility] CO2 [Moles/Vol] 25.0 mmol/L Invalid Interpretation Code 23-30 [facility] Creatinine [Mass/Vol] 2.30 mg/dL Invalid Interpretation Code 0.5-1.5 [facility] GFR/1.73 sq M predicted among non-blacks MDRD (S/P/Bld) [Vol rate/Area] 30 mL/min/{1.73_m2} Invalid Interpretation Code [facility] Glucose [Mass/Vol] 231.0 mg/dL Invalid Interpretation Code 80-117 [facility] HbA1c (Bld) [Mass fraction] 7.60 % Invalid Interpretation Code 4.3-6.3 [facility] Potassium [Moles/Vol] 4.50 mmol/L Invalid Interpretation Code 3.5-5.3 [facility] Sodium [Moles/Vol] 135.0 mmol/L Invalid Interpretation Code 135-148 [facility] Urea nitrogen [Mass/Vol] 34.0 mg/dL Invalid Interpretation Code 7-25 [place] [facility] Urea nitrogen/Creatinine [Mass ratio] 15 mg/mg Invalid Interpretation Code 6-20 [place] [facility] Otheron 08-21-2019 Bilirubin Ql (U) Negative Negative [facility] Gamma glutamyl transferase [Catalytic activity/Vol] 72 U/L Invalid Interpretation Code 7-51 [place] [facility] Glucose Test strip (U) [Mass/Vol] 4+ Invalid Interpretation Code Negative [place] [facility] Hemoglobin Ql (U) Trace Invalid Interpretation Code Negative [place] [facility] [facility] Nitrite Ql (U) Negative Negative [place] [facility] pH (U) 5 [pH] Invalid Interpretation Code 5.0-9.0 [place] [facility] Protein Ql (U) 1+ Invalid Interpretation Code Negative [place] [facility] Urobilinogen Test strip (U) [Mass/Vol] normal normal [place] [facility] 171 [place] [facility] 171.0 mg/dL Invalid Interpretation Code [place] [employer] [facility] Urinalysison 08-21-2019 Clarity (U) Clear Invalid Interpretation Code Clear [place] [facility] Color (U) yellow Invalid Interpretation Code yellow [place] [facility] Ketones Ql (U) Negative Negative [place] [facility] Leukocyte esterase Test strip Ql (U) Trace Invalid Interpretation Code Negative [id number] Specific gravity (U) [Rel density] 1.015 Invalid Interpretation Code 1.003-1.030 [id number] 05-22-2019 Cholesterol [Mass/Vol] 164.0 mg/dL Invalid Interpretation Code 0-200 [facility] Cholesterol in HDL [Mass/Vol] 33.0 mg/dL Invalid Interpretation Code 36-100 [facility] Cholesterol in LDL [Mass/Vol] 89.0 mg/dL Invalid Interpretation Code 0-130 [facility] Triglyceride [Mass/Vol] 208.0 mg/dL Invalid Interpretation Code 30-150 [facility] Hematologyon 05-22-2019 Hematocrit (Bld) [Volume fraction] 44.80 % Invalid Interpretation Code 37.8-51.0 [facility] Hemoglobin (Bld) [Mass/Vol] 15.30 g/dL Invalid Interpretation Code 12.6-17.0 [facility] MCH (RBC) [Entitic mass] 31.40 pg Invalid Interpretation Code 25.7-33.8 [facility] MCV (RBC) [Entitic vol] 92.0 fL Invalid Interpretation Code 81.0-100.2 [facility] Platelets (Bld) [#/Vol] 316.0 10*3/uL Invalid Interpretation Code 150-400 [facility] RBC (Bld) [#/Vol] 4.870 10*6/uL Invalid Interpretation Code 4.34-5.61 [facility] WBC (Bld) [#/Vol] 8.50 10*3/uL Invalid Interpretation Code 3.9-10.3 [facility] Imm/Pathon 05-22-2019 Prostate specific Ag [Mass/Vol] 0.59 ng/mL Invalid Interpretation Code 0.00-4.00 [facility] Laboratory - Chemistry and C hemistry - challengeon 05-22-2019 Bilirubin Ql (U) Negative Invalid Interpretation Code Negative [facility] Ketones Ql (U) Negative Invalid Interpretation Code Negative [facility] Urobilinogen (U) [Mass/Vol] normal Invalid Interpretation Code normal [facility] Laboratory - Hematology and Cell countson 05-22-2019 Hemoglobin Ql (U) Negative Invalid Interpretation Code Negative [facility] - Urinalysison Leukocyte esterase Test strip Ql (U) Negative Invalid Interpretation Code Negative [facility] Nitrite Ql (U) Negative Invalid Interpretation Code Negative [facility] Protein Ql (U) Negative Invalid Interpretation Code Negative [facility] Metabolic Panelon 05-22-2019 Albumin [Mass/Vol] 4.30 g/dL Invalid Interpretation Code 3.7-4.5 [facility] ALP [Catalytic activity/Vol] 79.0 U/L Invalid Interpretation Code 31-155 [facility] ALT [Catalytic activity/Vol] 23.0 U/L Invalid Interpretation Code 0-50 [facility] Anion gap [Moles/Vol] 16 mmol/L Invalid Interpretation Code 10-20 [facility] AST [Catalytic activity/Vol] 15.0 U/L Invalid Interpretation Code 0-40 [facility] Bilirubin [Mass/Vol] 0.40 mg/dL Invalid Interpretation Code 0.0-1.0 [facility] Calcium [Mass/Vol] 9.60 mg/dL Invalid Interpretation Code 8.5-10.8 [facility] Chloride [Moles/Vol] 97.0 mmol/L Invalid Interpretation Code 100-112 [place] [facility] CO2 [Moles/Vol] 27.0 mmol/L Invalid Interpretation Code 23-30 [place] [facility] Creatinine [Mass/Vol] 1.10 mg/dL Invalid Interpretation Code 0.5-1.5 [place] [facility] GFR/1.73 sq M predicted among non-blacks MDRD (S/P/Bld) [Vol rate/Area] 70 mL/min/{1.73_m2} Invalid Interpretation Code [place] [facility] Glucose [Mass/Vol] 101.0 mg/dL Invalid Interpretation Code 80-117 [place] [facility] Potassium [Moles/Vol] 4.30 mmol/L Invalid Interpretation Code 3.5-5.3 [place] [facility] Protein [Mass/Vol] 7.60 g/dL Invalid Interpretation Code 6.3-7.9 [place] [facility] Sodium [Moles/Vol] 136.0 mmol/L Invalid Interpretation Code 135-148 [place] [facility] Urea nitrogen [Mass/Vol] 21.0 mg/dL Invalid Interpretation Code 7-25 [place] [facility] Urea nitrogen/Creatinine [Mass ratio] 19 mg/mg Invalid Interpretation Code 6-20 [place] [facility] Otheron 05-22-2019 Albumin/Globulin [Mass ratio] 1.3 {ratio} Invalid Interpretation Code 1.0-2.4 [place] [facility] Bilirubin Ql (U) Negative Negative [facility] Cholesterol in VLDL [Mass/Vol] 42.0 mg/dL Invalid Interpretation Code 0-39 [id number] Cholesterol.total/C holesterol in HDL [Mass ratio] 5 {ratio} Invalid Interpretation Code [place] [facility] Collection time (Andrei) [Date/time] 1:00 pm Invalid Interpretation Code [place] [facility] Erythrocyte distribution width (RBC) [Ratio] 12.40 % Invalid Interpretation Code 11.5-15.5 [place] [facility] Glucose Test strip (U) [Mass/Vol] 4+ Invalid Interpretation Code Negative [place] [facility] Hemoglobin Ql (U) Negative Negative [facility] MCHC (RBC) [Mass/Vol] 34.20 g/dL Invalid Interpretation Code 32.0-36.0 [place] [facility] Nitrite Ql (U) Negative Negative [place] [facility] pH (U) 5 [pH] Invalid Interpretation Code 5.0-9.0 [place] [facility] Platelet mean volume (Bld) [Entitic vol] 9.40 fL Invalid Interpretation Code 8.3-11.5 [place] [facility] Protein Ql (U) Negative Negative [place] [facility] Urobilinogen Test strip (U) [Mass/Vol] normal normal [place] [facility] 23.0 U/L 0-50 [place] [facility] Urinalysison 05-22-2019 Clarity (U) Clear Invalid Interpretation Code Clear [facility] Color (U) yellow Invalid Interpretation Code yellow [id number] Ketones Ql (U) Negative Negative [place] [facility] Leukocyte esterase Test strip Ql (U) Negative Negative [facility] Specific gravity (U) [Rel density] 1.015 Invalid Interpretation Code 1.003-1.030 [facility] Laboratory - Chemistry and C hemistry - challengeon 04-09-2019 Bilirubin Ql (U) Negative Invalid Interpretation Code Negative [facility] Urobilinogen (U) [Mass/Vol] normal Invalid Interpretation Code normal [facility] Laboratory - Hematology and Cell countson 04-09-2019 Hemoglobin Ql (U) Negative Invalid Interpretation Code Negative [facility] - Urinalysison Leukocyte esterase Test strip Ql (U) Negative Invalid Interpretation Code Negative [facility] Nitrite Ql (U) Negative Invalid Interpretation Code Negative [facility] Metabolic Panelon 04-09-2019 Albumin [Mass/Vol] 4.50 g/dL Invalid Interpretation Code 3.7-4.5 [facility] ALP [Catalytic activity/Vol] 73.0 U/L Invalid Interpretation Code 31-155 [facility] ALT [Catalytic activity/Vol] 47.0 U/L Invalid Interpretation Code 0-50 [facility] Anion gap [Moles/Vol] 17 mmol/L Invalid Interpretation Code 10-20 [facility] AST [Catalytic activity/Vol] 41.0 U/L Invalid Interpretation Code 0-40 [facility] Bilirubin [Mass/Vol] 0.50 mg/dL Invalid Interpretation Code 0.0-1.0 [facility] Calcium [Mass/Vol] 9.30 mg/dL Invalid Interpretation Code 8.5-10.8 [facility] Chloride [Moles/Vol] 97.0 mmol/L Invalid Interpretation Code 100-112 [facility] CO2 [Moles/Vol] 27.0 mmol/L Invalid Interpretation Code 23-30 [facility] Creatinine [Mass/Vol] 0.90 mg/dL Invalid Interpretation Code 0.5-1.5 [facility] GFR/1.73 sq M predicted among non-blacks MDRD (S/P/Bld) [Vol rate/Area] 88 mL/min/{1.73_m2} Invalid Interpretation Code [facility] Glucose [Mass/Vol] 186.0 mg/dL Invalid Interpretation Code 80-117 [facility] HbA1c (Bld) [Mass fraction] 7.70 % Invalid Interpretation Code 4.3-6.3 [facility] Potassium [Moles/Vol] 4.0 mmol/L Invalid Interpretation Code 3.5-5.3 [facility] Protein [Mass/Vol] 7.60 g/dL Invalid Interpretation Code 6.3-7.9 [facility] Sodium [Moles/Vol] 137.0 mmol/L Invalid Interpretation Code 135-148 [facility] Urea nitrogen [Mass/Vol] 16.0 mg/dL Invalid Interpretation Code 7-25 [facility] Urea nitrogen/Creatinine [Mass ratio] 18 mg/mg Invalid Interpretation Code 6-20 [facility] Otheron 04-09-2019 Albumin (U) [Mass/Vol] 48.5 Invalid Interpretation Code <17.0 [facility] Albumin/Globulin [Mass ratio] 1.5 {ratio} Invalid Interpretation Code 1.0-2.4 [place] [facility] Bilirubin Ql (U) Negative Negative [facility] [place] [employer] Gamma glutamyl transferase [Catalytic activity/Vol] 52 U/L Invalid Interpretation Code 7-51 [place] [facility] Glucose Test strip (U) [Mass/Vol] 4+ Invalid Interpretation Code Negative [place] [facility] Hemoglobin Ql (U) Negative Negative [facility] [address] [place] [employer] Nitrite Ql (U) Negative Negative [place] [facility] pH (U) 6 [pH] Invalid Interpretation Code 5.0-9.0 [place] [facility] Protein Ql (U) 1+ Invalid Interpretation Code Negative [place] [facility] Urobilinogen Test strip (U) [Mass/Vol] normal normal [place] [facility] 174 [place] [facility] 47.0 U/L 0-50 [place] [facility] 174.0 mg/dL Invalid Interpretation Code [place] [facility] Urinalysison 04-09-2019 Albumin/Creatinine DL <= 20 mg/L (U) [Mass ratio] 70.7 mg/g Invalid Interpretation Code 0.0-30.0 [place] [facility] Clarity (U) clear Invalid Interpretation Code Clear [place] [facility] Color (U) yellow Invalid Interpretation Code yellow [place] [facility] Creatinine (U) [Mass/Vol] 68.60 mg/dL Invalid Interpretation Code Not Estab. mg/dL [place] [facility] Ketones Ql (U) 2+ Invalid Interpretation Code Negative [facility] Leukocyte esterase Test strip Ql (U) Negative Negative [facility] Specific gravity (U) [Rel density] 1.010 Invalid Interpretation Code 1.003-1.030 [facility] Laboratory - Chemistry and C hemistry - challengeon 12-08-2018 Bilirubin Ql (U) Negative Invalid Interpretation Code Negative [facility] Urobilinogen (U) [Mass/Vol] normal Invalid Interpretation Code normal [facility] Laboratory - Hematology and Cell countson 12-08-2018 Hemoglobin Ql (U) Negative Invalid Interpretation Code Negative [facility] Laboratory - Urinalysison Leukocyte esterase Test strip Ql (U) Negative Invalid Interpretation Code Negative [facility] Nitrite Ql (U) Negative Invalid Interpretation Code Negative [facility] Protein Ql (U) Negative Invalid Interpretation Code Negative [facility] Metabolic Panelon 12-08-2018 Glucose mass conc 255.0 mg/dL Invalid Interpretation Code 80-117 [facility] Hemoglobin A1c/Hemoglobin.tota l mass fraction (Bld) 8.80 % Invalid Interpretation Code 4.3-6.3 [id number] Otheron 12-08-2018 Bilirubin Ql (U) Negative Negative [facility] Glucose Test strip mass conc (U) 4+ Invalid Interpretation Code Negative [facility] Hemoglobin Ql (U) Negative Negative [facility] Nitrite Ql (U) Negative Negative [facility] pH (U) 6 [pH] Invalid Interpretation Code 5.0-9.0 [facility] Protein Ql (U) Negative Negative [facility] Urobilinogen Test strip mass conc (U) normal normal [facility] 206 [facility] 206.0 mg/dL Invalid Interpretation Code [facility] Urinalysison 12-08-2018 Clarity Nom (U) Clear Invalid Interpretation Code Clear [facility] Color Nom (U) yellow Invalid Interpretation Code yellow [facility] Ketones Ql (U) 1+ Invalid Interpretation Code Negative [facility] Leukocyte esterase Test strip Ql (U) Negative Negative [facility] Specific gravity Relative Density (U) 1.015 Invalid Interpretation Code 1.003-1.030 [facility] 08-23-2018 Cholesterol in HDL mass conc 35.0 mg/dL Invalid Interpretation Code 36-100 [facility] Cholesterol in LDL mass conc 90.0 mg/dL Invalid Interpretation Code 0-130 [facility] Cholesterol mass conc 204.0 mg/dL Invalid Interpretation Code 0-200 [facility] Triglyceride mass conc 396.0 mg/dL Invalid Interpretation Code 30-150 [facility] Hematologyon 08-23-2018 Hematocrit Volume Fraction (Bld) 44.0 % Invalid Interpretation Code 37.8-51.0 [facility] Hemoglobin mass conc (Bld) 15.20 g/dL Invalid Interpretation Code 12.6-17.0 [facility] MCH Entitic mass (RBC) 32.0 pg Invalid Interpretation Code 25.7-33.8 [facility] MCV Entitic volume (RBC) 92.60 fL Invalid Interpretation Code 81.0-100.2 [facility] Platelets #/vol (Bld) 244.0 10*3/uL Invalid Interpretation Code 150-400 [facility] RBC #/vol (Bld) 4.750 10*6/uL Invalid Interpretation Code 4.34-5.61 [facility] WBC #/vol (Bld) 6.80 10*3/uL Invalid Interpretation Code 3.9-10.3 [facility] Imm/Pathon 08-23-2018 Prostate specific Ag mass conc 0.61 ng/mL Invalid Interpretation Code 0.00-4.00 [facility] Metabolic Panelon 08-23-2018 Albumin mass conc 4.50 g/dL Invalid Interpretation Code 3.7-4.5 [facility] ALP enzyme act/vol 75.0 U/L Invalid Interpretation Code 31-155 [facility] ALT enzyme act/vol 66.0 U/L Invalid Interpretation Code 0-50 [facility] Anion gap molar conc 20 mmol/L Invalid Interpretation Code 10-20 [facility] AST enzyme act/vol 39.0 U/L Invalid Interpretation Code 0-40 [facility] Bilirubin mass conc 0.40 mg/dL Invalid Interpretation Code 0.0-1.0 [facility] Calcium mass conc 9.40 mg/dL Invalid Interpretation Code 8.5-10.8 [facility] Chloride molar conc 96 mmol/L Invalid Interpretation Code 100-112 [facility] CO2 molar conc 28 mmol/L Invalid Interpretation Code 23-30 [facility] Creatinine mass conc 0.90 mg/dL Invalid Interpretation Code 0.5-1.5 [facility] GFR/1.73 sq M predicted among non-blacks MDRD vol rate/area (S/P/Bld) 88 mL/min/{1.73_m2} Invalid Interpretation Code [facility] Glucose mass conc 328.0 mg/dL Invalid Interpretation Code 80-117 [facility] Hemoglobin A1c/Hemoglobin.tota l mass fraction (Bld) 10.50 % Invalid Interpretation Code 4.3-6.3 [facility] Potassium molar conc 4.1 mmol/L Invalid Interpretation Code 3.5-5.3 [facility] Protein mass conc 7.60 g/dL Invalid Interpretation Code 6.3-7.9 [facility] Sodium molar conc 140 mmol/L Invalid Interpretation Code 135-148 [facility] Urea nitrogen mass conc 13.0 mg/dL Invalid Interpretation Code 7-25 [facility] Urea nitrogen/Creatinine mass ratio 14 mg/mg Invalid Interpretation Code 6-20 [facility] No Panel Informationon 08-23 1175 Invalid Interpretation Code 243-391 [facility] Otheron 08-23-2018 Albumin mass conc (U) 64.2 Invalid Interpretation Code <17.0 [facility] Albumin/Globulin mass ratio 1.5 {ratio} Invalid Interpretation Code 1.0-2.4 [facility] Cholesterol in VLDL mass conc 79.0 mg/dL Invalid Interpretation Code 0-39 [facility] Cholesterol.total/C holesterol in HDL mass ratio 6 {ratio} Invalid Interpretation Code [facility] Cobalamin (Vitamin B12) mass conc 1175 pg/mL 243-911 [facility] Erythrocyte distribution width Ratio (RBC) 11.70 % Invalid Interpretation Code 11.5-15.5 [facility] MCHC mass conc (RBC) 34.50 g/dL Invalid Interpretation Code 32.0-36.0 [facility] Platelet mean volume Entitic volume (Bld) 9.80 fL Invalid Interpretation Code 8.3-11.5 [facility] 255 [facility] 18.9 Invalid Interpretation Code >5.4 [facility] 255.0 mg/dL Invalid Interpretation Code [facility] 66.0 U/L 0-50 [facility] Urinalysison 08-23-2018 Albumin/Creatinine DL <= 20 mg/L mass ratio (U) 334.4 mg/g Invalid Interpretation Code 0.0-30.0 [facility] Creatinine mass conc (U) 19.20 mg/dL Invalid Interpretation Code Not Estab. mg/dL [facility] Laboratory - Urinalysison Glucose Test strip (U) [Mass/Vol] Negative Invalid Interpretation Code negative [facility] Protein (U) [Mass/Vol] Negative Invalid Interpretation Code negative [facility] Metabolic Panelon 06-12-2018 Glucose mass conc 195.0 mg/dL Invalid Interpretation Code 80-117 [facility] Hemoglobin A1c/Hemoglobin.tota l mass fraction (Bld) 9.50 % Invalid Interpretation Code 4.3-6.3 [facility] Otheron 06-12-2018 Glucose Test strip mass conc (U) Negative negative [facility] 226 [facility] 226.0 mg/dL Invalid Interpretation Code [facility] Urinalysison 06-12-2018 Protein mass conc (U) Negative negative [facility] 02-22-2018 Cholesterol in HDL mass conc 30.0 mg/dL Invalid Interpretation Code 36-100 [facility] Cholesterol mass conc 263.0 mg/dL Invalid Interpretation Code 0-200 [facility] Triglyceride mass conc 797.0 mg/dL Invalid Interpretation Code 30-150 [facility] Metabolic Panelon 02-22-2018 Albumin mass conc 4.50 g/dL Invalid Interpretation Code 3.7-4.5 [facility] ALP enzyme act/vol 83.0 U/L Invalid Interpretation Code 31-155 [facility] ALT enzyme act/vol 49.0 U/L Invalid Interpretation Code 0-50 [facility] Anion gap molar conc 20 mmol/L Invalid Interpretation Code 10-20 [facility] AST enzyme act/vol 22.0 U/L Invalid Interpretation Code 0-40 [facility] Bilirubin mass conc 0.70 mg/dL Invalid Interpretation Code 0.0-1.0 [facility] Calcium mass conc 9.70 mg/dL Invalid Interpretation Code 8.5-10.8 [facility] Chloride molar conc 93 mmol/L Invalid Interpretation Code 100-112 [facility] CO2 molar conc 27 mmol/L Invalid Interpretation Code 23-30 [facility] Creatinine mass conc 0.90 mg/dL Invalid Interpretation Code 0.5-1.5 [facility] GFR/1.73 sq M predicted among non-blacks MDRD vol rate/area (S/P/Bld) 88 mL/min/{1.73_m2} Invalid Interpretation Code [facility] Glucose mass conc 323.0 mg/dL Invalid Interpretation Code 80-117 [facility] Hemoglobin A1c/Hemoglobin.tota l mass fraction (Bld) 10.0 % Invalid Interpretation Code 4.3-6.3 [facility] Potassium molar conc 4.0 mmol/L Invalid Interpretation Code 3.5-5.3 [facility] Protein mass conc 7.70 g/dL Invalid Interpretation Code 6.3-7.9 [facility] Sodium molar conc 136 mmol/L Invalid Interpretation Code 135-148 [facility] Urea nitrogen mass conc 13.0 mg/dL Invalid Interpretation Code 7-25 [facility] Urea nitrogen/Creatinine mass ratio 14 mg/mg Invalid Interpretation Code 6-20 [facility] Otheron 02-22-2018 Albumin mass conc (U) 141.8 Invalid Interpretation Code <17.0 [facility] Albumin/Globulin mass ratio 1.4 {ratio} Invalid Interpretation Code 1.0-2.4 [facility] Cholesterol in VLDL mass conc 159.0 mg/dL Invalid Interpretation Code 0-39 [facility] Cholesterol.total/C holesterol in HDL mass ratio 9 {ratio} Invalid Interpretation Code [facility] 240 [facility] 49.0 U/L 0-50 [facility] 240.0 mg/dL Invalid Interpretation Code [facility] Urinalysison 02-22-2018 Albumin/Creatinine DL <= 20 mg/L mass ratio (U) 179.5 mg/g Invalid Interpretation Code 0.0-30.0 [facility] Creatinine mass conc (U) 79.0 mg/dL Invalid Interpretation Code Not Estab. mg/dL [facility] Laboratory - Chemistry and C hemistry - challengeon 11-25-2017 Bilirubin Ql (U) Negative Invalid Interpretation Code Negative [facility] Ketones Ql (U) Negative Invalid Interpretation Code Negative [facility] Urobilinogen (U) [Mass/Vol] normal Invalid Interpretation Code normal [facility] Laboratory - Hematology and Cell countson 11-25-2017 Hemoglobin Ql (U) Negative Invalid Interpretation Code Negative [facility] - Urinalysison Leukocyte esterase Test strip Ql (U) Negative Invalid Interpretation Code Negative [facility] Nitrite Ql (U) Negative Invalid Interpretation Code Negative [facility] Protein Ql (U) Negative Invalid Interpretation Code Negative [facility] Metabolic Panelon 11-25-2017 Glucose mass conc 350.0 mg/dL Invalid Interpretation Code 80-117 [facility] Hemoglobin A1c/Hemoglobin.tota l mass fraction (Bld) 8.60 % Invalid Interpretation Code 4.3-6.3 [place] [facility] Otheron 11-25-2017 Bilirubin Ql (U) Negative Negative [facility] Glucose Test strip mass conc (U) 4+ Invalid Interpretation Code Negative [facility] Hemoglobin Ql (U) Negative Negative [facility] Nitrite Ql (U) Negative Negative [facility] pH (U) 5 [pH] Invalid Interpretation Code 4.5-7.8 [facility] Protein Ql (U) Negative Negative [facility] Urobilinogen Test strip mass conc (U) normal normal [facility] 200 [facility] 200.0 mg/dL Invalid Interpretation Code [facility] Urinalysison 11-25-2017 Clarity Nom (U) Clear Invalid Interpretation Code Clear [facility] Color Nom (U) yellow Invalid Interpretation Code yellow [facility] Ketones Ql (U) Negative Negative [facility] Leukocyte esterase Test strip Ql (U) Negative Negative [facility] Specific gravity Relative Density (U) 1.010 Invalid Interpretation Code 1.003-1.029 [facility] 08-24-2017 Cholesterol in HDL mass conc 39.0 mg/dL Invalid Interpretation Code 36-100 [facility] Cholesterol in LDL mass conc 138.0 mg/dL Invalid Interpretation Code 0-130 [facility] Cholesterol mass conc 237.0 mg/dL Invalid Interpretation Code 0-200 [facility] Triglyceride mass conc 301.0 mg/dL Invalid Interpretation Code 30-150 [facility] Metabolic Panelon 08-24-2017 ALT enzyme act/vol 52.0 U/L Invalid Interpretation Code 0-50 [facility] Anion gap molar conc 17 mmol/L Invalid Interpretation Code 10-20 [facility] AST enzyme act/vol 38.0 U/L Invalid Interpretation Code 0-40 [facility] Calcium mass conc 9.50 mg/dL Invalid Interpretation Code 8.5-10.8 [facility] Chloride molar conc 98 mmol/L Invalid Interpretation Code 100-112 [facility] CO2 molar conc 29 mmol/L Invalid Interpretation Code 23-30 [facility] Creatinine mass conc 0.90 mg/dL Invalid Interpretation Code 0.5-1.5 [facility] GFR/1.73 sq M predicted among non-blacks MDRD vol rate/area (S/P/Bld) 88 mL/min/{1.73_m2} Invalid Interpretation Code [facility] Glucose mass conc 146.0 mg/dL Invalid Interpretation Code 80-117 [facility] Hemoglobin A1c/Hemoglobin.tota l mass fraction (Bld) 8.40 % Invalid Interpretation Code 4.3-6.3 [facility] Potassium molar conc 3.8 mmol/L Invalid Interpretation Code 3.5-5.3 [facility] Sodium molar conc 140 mmol/L Invalid Interpretation Code 135-148 [facility] Urea nitrogen mass conc 16.0 mg/dL Invalid Interpretation Code 7-25 [facility] Urea nitrogen/Creatinine mass ratio 18 mg/mg Invalid Interpretation Code 6-20 [facility] Otheron 08-24-2017 Albumin mass conc (U) 160.5 Invalid Interpretation Code <17.0 [facility] Cholesterol in VLDL mass conc 60.0 mg/dL Invalid Interpretation Code 0-39 [facility] Cholesterol.total/C holesterol in HDL mass ratio 6 {ratio} Invalid Interpretation Code [facility] 194 [facility] 194.0 mg/dL Invalid Interpretation Code [facility] 52.0 U/L 0-50 [facility] Urinalysison 08-24-2017 Albumin/Creatinine DL <= 20 mg/L mass ratio (U) 105.5 mg/g Invalid Interpretation Code 0.0-30.0 [facility] Creatinine mass conc (U) 152.10 mg/dL Invalid Interpretation Code Not Estab. mg/dL [facility] Laboratory - Urinalysison Protein (U) [Mass/Vol] Negative Invalid Interpretation Code negative [facility] Metabolic Panelon 08-01-2017 Glucose mass conc 259.0 mg/dL Invalid Interpretation Code 80-117 [facility] Hemoglobin A1c/Hemoglobin.tota l mass fraction (Bld) 8.30 % Invalid Interpretation Code 4.3-6.3 [facility] Otheron 08-01-2017 Glucose Test strip mass conc (U) trace Invalid Interpretation Code negative [facility] pH (U) 6.0 [pH] Invalid Interpretation Code 4.5-7.8 [facility] 192 [facility] 192.0 mg/dL Invalid Interpretation Code [facility] Urinalysison 08-01-2017 Protein mass conc (U) Negative negative [facility] Laboratory - Chemistry and C hemistry - challengeon 03-29-2017 Bilirubin Ql (U) Negative Invalid Interpretation Code Negative [facility] Ketones Ql (U) Negative Invalid Interpretation Code Negative [facility] Urobilinogen (U) [Mass/Vol] normal Invalid Interpretation Code normal [facility] Laboratory - Hematology and Cell countson 03-29-2017 Hemoglobin Ql (U) Negative Invalid Interpretation Code Negative [facility] - Urinalysison Leukocyte esterase Test strip Ql (U) Negative Invalid Interpretation Code Negative [facility] Nitrite Ql (U) Negative Invalid Interpretation Code Negative [facility] Protein Ql (U) Negative Invalid Interpretation Code Negative [facility] Metabolic Panelon 03-29-2017 Glucose mass conc 284.0 mg/dL Invalid Interpretation Code 80-117 [facility] Hemoglobin A1c/Hemoglobin.tota l mass fraction (Bld) 8.0 % Invalid Interpretation Code 4.3-6.3 [facility] Otheron 03-29-2017 Albumin mass conc (U) < 12.0 Invalid Interpretation Code < 17.0 ug/mL [place] [facility] Bilirubin Ql (U) Negative Negative [facility] [place] [employer] Glucose Test strip mass conc (U) 4+ Invalid Interpretation Code Negative [place] [facility] Hemoglobin Ql (U) Negative Negative [facility] [address] [place] [employer] Nitrite Ql (U) Negative Negative [place] [facility] pH (U) 6 [pH] Invalid Interpretation Code 4.5-7.8 [place] [facility] Protein Ql (U) Negative Negative [facility] [employer] Urobilinogen Test strip mass conc (U) normal normal [place] [facility] 183 [place] [facility] 183.0 mg/dL Invalid Interpretation Code [place] [facility] Urinalysison 03-29-2017 Clarity Nom (U) clear Invalid Interpretation Code Clear [place] [facility] Color Nom (U) yellow Invalid Interpretation Code yellow [place] [facility] Creatinine mass conc (U) 14.20 mg/dL Invalid Interpretation Code Not Estab. mg/dL [place] [facility] Ketones Ql (U) Negative Negative [place] [facility] Leukocyte esterase Test strip Ql (U) Negative Negative [place] [facility] Specific gravity Relative Density (U) 1.015 Invalid Interpretation Code 1.003-1.029 [place] [facility] Laboratory - Chemistry and C hemistry - challengeon 11-23-2016 Bilirubin Ql (U) Negative Invalid Interpretation Code Negative [facility] Ketones Ql (U) Negative Invalid Interpretation Code Negative [facility] Urobilinogen (U) [Mass/Vol] normal Invalid Interpretation Code normal [facility] Laboratory - Urinalysison Leukocyte esterase Test strip Ql (U) Negative Invalid Interpretation Code Negative [facility] Nitrite Ql (U) Negative Invalid Interpretation Code Negative [facility] Metabolic Panelon 11-23-2016 Glucose mass conc 195.0 mg/dL Invalid Interpretation Code 80-117 [facility] Hemoglobin A1c/Hemoglobin.tota l mass fraction (Bld) 6.90 % Invalid Interpretation Code 4.3-6.3 [facility] Otheron 11-23-2016 Bilirubin Ql (U) Negative Negative [facility] Glucose Test strip mass conc (U) 4+ Invalid Interpretation Code Negative [facility] Hemoglobin Ql (U) Trace Invalid Interpretation Code Negative [facility] Nitrite Ql (U) Negative Negative [facility] pH (U) 6 [pH] Invalid Interpretation Code 4.5-7.8 [facility] Protein Ql (U) 1+ Invalid Interpretation Code Negative [facility] Urobilinogen Test strip mass conc (U) normal normal [facility] 151 [facility] 151.0 mg/dL Invalid Interpretation Code [facility] Urinalysison 11-23-2016 Clarity Nom (U) clear Invalid Interpretation Code Clear [facility] Color Nom (U) yellow Invalid Interpretation Code yellow [facility] Ketones Ql (U) Negative Negative [facility] Leukocyte esterase Test strip Ql (U) Negative Negative [facility] Specific gravity Relative Density (U) 1.010 Invalid Interpretation Code 1.003-1.029 [facility] 09-21-2016 Cholesterol in HDL mass conc 32.0 mg/dL Invalid Interpretation Code 36-100 [facility] Cholesterol in LDL mass conc 80.0 mg/dL Invalid Interpretation Code 0-130 [facility] Cholesterol mass conc 180.0 mg/dL Invalid Interpretation Code 0-200 [facility] Triglyceride mass conc 340.0 mg/dL Invalid Interpretation Code 30-150 [facility] Metabolic Panelon 09-21-2016 ALT enzyme act/vol 48.0 U/L Invalid Interpretation Code 0-50 [facility] Anion gap molar conc 20 mmol/L Invalid Interpretation Code 10-20 [facility] AST enzyme act/vol 22.0 U/L Invalid Interpretation Code 0-40 [facility] Calcium mass conc 9.70 mg/dL Invalid Interpretation Code 8.5-10.8 [facility] Chloride molar conc 100 mmol/L Invalid Interpretation Code 100-112 [facility] CO2 molar conc 26 mmol/L Invalid Interpretation Code 23-30 [facility] Creatinine mass conc 1.10 mg/dL Invalid Interpretation Code 0.5-1.5 [facility] GFR/1.73 sq M predicted among non-blacks MDRD vol rate/area (S/P/Bld) 70 mL/min/{1.73_m2} Invalid Interpretation Code [facility] Glucose mass conc 158.0 mg/dL Invalid Interpretation Code 80-117 [facility] Hemoglobin A1c/Hemoglobin.tota l mass fraction (Bld) 7.10 % Invalid Interpretation Code 4.3-6.3 [facility] Potassium molar conc 4.1 mmol/L Invalid Interpretation Code 3.5-5.3 [facility] Sodium molar conc 142 mmol/L Invalid Interpretation Code 135-148 [facility] Urea nitrogen mass conc 18.0 mg/dL Invalid Interpretation Code 7-25 [facility] Urea nitrogen/Creatinine mass ratio 16 mg/mg Invalid Interpretation Code 6-20 [facility] Otheron 09-21-2016 Cholesterol in VLDL mass conc 68.0 mg/dL Invalid Interpretation Code 0-39 [facility] Cholesterol.total/C holesterol in HDL mass ratio 6 {ratio} Invalid Interpretation Code [facility] 157 [facility] 48.0 U/L 0-50 [facility] 157.0 mg/dL Invalid Interpretation Code [facility] Laboratory - Chemistry and C hemistry - challengeon 07-27-2016 Bilirubin Ql (U) Negative Invalid Interpretation Code Negative [facility] Urobilinogen (U) [Mass/Vol] normal Invalid Interpretation Code normal [facility] Laboratory - Hematology and Cell countson 07-27-2016 Hemoglobin Ql (U) Negative Invalid Interpretation Code Negative [facility] Laboratory - Urinalysison Leukocyte esterase Test strip Ql (U) Negative Invalid Interpretation Code Negative [facility] Nitrite Ql (U) Negative Invalid Interpretation Code Negative [facility] Protein Ql (U) Negative Invalid Interpretation Code Negative [facility] Metabolic Panelon 07-27-2016 Anion gap molar conc 19 mmol/L Invalid Interpretation Code 10-20 [facility] Calcium mass conc 9.90 mg/dL Invalid Interpretation Code 8.5-10.8 [facility] Chloride molar conc 96 mmol/L Invalid Interpretation Code 100-112 [facility] CO2 molar conc 29 mmol/L Invalid Interpretation Code 23-30 [facility] Creatinine mass conc 1.10 mg/dL Invalid Interpretation Code 0.5-1.5 [facility] GFR/1.73 sq M predicted among non-blacks MDRD vol rate/area (S/P/Bld) 70 mL/min/{1.73_m2} Invalid Interpretation Code [facility] Glucose mass conc 166.0 mg/dL Invalid Interpretation Code 80-117 [facility] Hemoglobin A1c/Hemoglobin.tota l mass fraction (Bld) 7.50 % Invalid Interpretation Code 4.3-6.3 [facility] Potassium molar conc 3.9 mmol/L Invalid Interpretation Code 3.5-5.3 [facility] Sodium molar conc 140 mmol/L Invalid Interpretation Code 135-148 [place] [facility] Urea nitrogen mass conc 14.0 mg/dL Invalid Interpretation Code 7-25 [place] [facility] Urea nitrogen/Creatinine mass ratio 13 mg/mg Invalid Interpretation Code 6-20 [place] [facility] Otheron 07-27-2016 Albumin mass conc (U) < 12.0 Invalid Interpretation Code < 17.0 ug/mL [place] [facility] Bilirubin Ql (U) Negative Negative [facility] Glucose Test strip mass conc (U) 4+ Invalid Interpretation Code Negative [place] [facility] Hemoglobin Ql (U) Negative Negative [facility] Nitrite Ql (U) Negative Negative [place] [facility] pH (U) 5 [pH] Invalid Interpretation Code 4.5-7.8 [place] [facility] Protein Ql (U) Negative Negative [place] [facility] Urobilinogen Test strip mass conc (U) normal normal [place] [facility] 169 [email or web address] 169.0 mg/dL Invalid Interpretation Code [place] [facility] Thyroidon 07-27-2016 T4 mass conc 5.55 ug/dL Invalid Interpretation Code 5.00-12.00 [place] [facility] Thyrotropin Qn 2.71 m[IU]/L Invalid Interpretation Code 0.50-4.00 [place] [facility] Urinalysison 07-27-2016 Clarity Nom (U) clear Invalid Interpretation Code Clear [place] [facility] Color Nom (U) yellow Invalid Interpretation Code yellow [facility] Creatinine mass conc (U) 85.80 mg/dL Invalid Interpretation Code Not Estab. mg/dL [facility] Ketones Ql (U) 1+ Invalid Interpretation Code Negative [email or web address] Leukocyte esterase Test strip Ql (U) Negative Negative [email or web address] Specific gravity Relative Density (U) 1.015 Invalid Interpretation Code 1.003-1.029 [email or web address] Laboratory - Chemistry and C hemistry - challengeon 03-04-2016 Bilirubin Ql (U) Negative Invalid Interpretation Code Negative [email or web address] Ketones Ql (U) Negative Invalid Interpretation Code Negative [email or web address] Urobilinogen (U) [Mass/Vol] normal Invalid Interpretation Code normal [email or web address] Laboratory - Hematology and Cell countson 03-04-2016 Hemoglobin Ql (U) Negative Invalid Interpretation Code Negative [id number] Laboratory - Urinalysison Leukocyte esterase Test strip Ql (U) Negative Invalid Interpretation Code Negative [email or web address] Nitrite Ql (U) Negative Invalid Interpretation Code Negative [email or web address] Protein Ql (U) Negative Invalid Interpretation Code Negative [id number] Metabolic Panelon 03-04-2016 Anion gap molar conc 16 mmol/L Invalid Interpretation Code 10-20 [facility] Calcium mass conc 10.30 mg/dL Invalid Interpretation Code 8.5-10.8 [facility] Chloride molar conc 99 mmol/L Invalid Interpretation Code 100-112 [facility] CO2 molar conc 30 mmol/L Invalid Interpretation Code 23-30 [employer] Creatinine mass conc 1.0 mg/dL Invalid Interpretation Code 0.5-1.5 [place] [facility] GFR/1.73 sq M predicted among non-blacks MDRD vol rate/area (S/P/Bld) 79 mL/min/{1.73_m2} Invalid Interpretation Code [place] [facility] Glucose mass conc 190.0 mg/dL Invalid Interpretation Code 80-117 [place] [facility] Hemoglobin A1c/Hemoglobin.tota l mass fraction (Bld) 6.70 % Invalid Interpretation Code 4.3-6.3 [place] [facility] Potassium molar conc 4.1 mmol/L Invalid Interpretation Code 3.5-5.3 [place] [facility] Sodium molar conc 141 mmol/L Invalid Interpretation Code 135-148 [place] [facility] Urea nitrogen mass conc 12.0 mg/dL Invalid Interpretation Code 7-25 [place] [facility] Urea nitrogen/Creatinine mass ratio 12 mg/mg Invalid Interpretation Code 6-20 [place] [facility] Otheron 03-04-2016 Bilirubin Ql (U) Negative Negative [facility] Glucose Test strip mass conc (U) 4+ Invalid Interpretation Code Negative [place] [facility] Hemoglobin Ql (U) Negative Negative [facility] Nitrite Ql (U) Negative Negative [place] [facility] pH (U) 6 [pH] Invalid Interpretation Code 4.5-7.8 [place] [facility] Protein Ql (U) Negative Negative [place] [facility] Urobilinogen Test strip mass conc (U) normal normal [facility] 146 [facility] 146.0 mg/dL Invalid Interpretation Code [facility] Urinalysison 03-04-2016 Clarity Nom (U) clear Invalid Interpretation Code Clear [facility] Color Nom (U) yellow Invalid Interpretation Code yellow [facility] Ketones Ql (U) Negative Negative [facility] Leukocyte esterase Test strip Ql (U) Negative Negative [facility] Specific gravity Relative Density (U) 1.015 Invalid Interpretation Code 1.003-1.029 [facility] Laboratory - Chemistry and C hemistry - challengeon 11-26-2015 Bilirubin Ql (U) Negative Invalid Interpretation Code Negative [facility] Urobilinogen (U) [Mass/Vol] normal Invalid Interpretation Code normal [facility] Laboratory - Hematology and Cell countson 11-26-2015 Hemoglobin Ql (U) Negative Invalid Interpretation Code Negative [facility] Laboratory - Urinalysison Leukocyte esterase Test strip Ql (U) Negative Invalid Interpretation Code Negative [facility] Nitrite Ql (U) Negative Invalid Interpretation Code Negative [facility] Protein Ql (U) Negative Invalid Interpretation Code Negative [facility] Metabolic Panelon 11-26-2015 Glucose mass conc 220.0 mg/dL Invalid Interpretation Code 80-117 [facility] Hemoglobin A1c/Hemoglobin.tota l mass fraction (Bld) 9.70 % Invalid Interpretation Code 4.3-6.3 [facility] Otheron 11-26-2015 Albumin mass conc (U) < 12.0 Invalid Interpretation Code < 4.0-17.0 [place] [facility] Bilirubin Ql (U) Negative Negative [facility] [place] [employer] Glucose Test strip mass conc (U) 4+ Invalid Interpretation Code Negative [place] [facility] Hemoglobin Ql (U) Negative Negative [facility] [address] [place] [employer] Nitrite Ql (U) Negative Negative [place] [facility] pH (U) 6 [pH] Invalid Interpretation Code 4.5-7.8 [place] [facility] Protein Ql (U) Negative Negative [place] [facility] Urobilinogen Test strip mass conc (U) normal normal [place] [facility] 232 [place] [facility] 232.0 mg/dL Invalid Interpretation Code [place] [facility] Thyroidon 11-26-2015 T4 mass conc 5.77 ug/dL Invalid Interpretation Code 5.00-12.00 [place] [facility] Thyrotropin Qn 2.60 m[IU]/L Invalid Interpretation Code 0.50-4.00 [place] [facility] Urinalysison 11-26-2015 Clarity Nom (U) clear Invalid Interpretation Code Clear [place] [facility] Color Nom (U) yellow Invalid Interpretation Code yellow [place] [facility] Creatinine mass conc (U) 66.20 mg/dL Invalid Interpretation Code Not Estab. mg/dL [place] [facility] Ketones Ql (U) 2+ Invalid Interpretation Code Negative [place] [facility] Leukocyte esterase Test strip Ql (U) Negative Negative [facility] Specific gravity Relative Density (U) 1.010 Invalid Interpretation Code 1.003-1.029 [facility] Laboratory - Chemistry and C hemistry - challengeon 11-07-2015 Cortisol [Mass/Vol] ug/dL Invalid Interpretation Code 3.1-22.4 [facility] Otheron 11-07-2015 Cortisol mass conc ug/dL 3.1-22.4 [facility] Laboratory - Chemistry and C hemistry - challengeon 10-29-2015 Bilirubin Ql (U) Negative Invalid Interpretation Code Negative [facility] Urobilinogen (U) [Mass/Vol] normal Invalid Interpretation Code normal [facility] Hematology and Cell countson 10-29-2015 Hemoglobin Ql (U) Negative Invalid Interpretation Code Negative [facility] - Urinalysis[facility] Leukocyte esterase Test strip Ql (U) Negative Invalid Interpretation Code Negative [facility] Nitrite Ql (U) Negative Invalid Interpretation Code Negative [facility] Protein Ql (U) Negative Invalid Interpretation Code Negative [facility] Metabolic Panelon 10-29-2015 Anion gap molar conc 20 mmol/L Invalid Interpretation Code 10-20 [facility] Calcium mass conc 9.70 mg/dL Invalid Interpretation Code 8.5-10.8 [facility] Chloride molar conc 96 mmol/L Invalid Interpretation Code 100-112 [facility] CO2 molar conc 27 mmol/L Invalid Interpretation Code 23-30 [facility] Creatinine mass conc 0.80 mg/dL Invalid Interpretation Code 0.5-1.5 [facility] [employer] GFR/1.73 sq M predicted among non-blacks MDRD vol rate/area (S/P/Bld) 102 mL/min/{1.73_m2} Invalid Interpretation Code [facility] [employer] Glucose mass conc 286.0 mg/dL Invalid Interpretation Code 80-117 [place] [facility] Hemoglobin A1c/Hemoglobin.tota l mass fraction (Bld) 12.60 % Invalid Interpretation Code 4.3-6.3 [place] [facility] Potassium molar conc 3.6 mmol/L Invalid Interpretation Code 3.5-5.3 [place] [facility] Sodium molar conc 139 mmol/L Invalid Interpretation Code 135-148 [place] [facility] Urea nitrogen mass conc 11.0 mg/dL Invalid Interpretation Code 7-25 [place] [facility] Urea nitrogen/Creatinine mass ratio 14 mg/mg Invalid Interpretation Code 6-20 [place] [facility] Otheron 10-29-2015 Albumin mass conc (U) 25.9 Invalid Interpretation Code 0.0-17.0 [place] [facility] Bilirubin Ql (U) Negative Negative [facility] [place] [facility] [employer] Glucose Test strip mass conc (U) 4+ Invalid Interpretation Code Negative [place] [facility] Hemoglobin Ql (U) Negative Negative [facility] [address] [place] [employer] [facility] [employer] Nitrite Ql (U) Negative Negative [place] [facility] pH (U) 5 [pH] Invalid Interpretation Code 4.5-7.8 [place] [facility] Protein Ql (U) Negative Negative [facility] Test strip mass conc (U) normal normal [facility] 315 [facility] 315.0 mg/dL Invalid Interpretation Code [facility] Urinalysison 10-29-2015 Albumin/Creatinine DL <= 20 mg/L mass ratio (U) 14.7 mg/g Invalid Interpretation Code 0.0-30.0 [facility] Clarity Nom (U) clear Invalid Interpretation Code Clear [facility] Color Nom (U) yellow Invalid Interpretation Code yellow [facility] Creatinine mass conc (U) 175.60 mg/dL Invalid Interpretation Code Not Estab. mg/dL [facility] Ketones Ql (U) 3+ Invalid Interpretation Code Negative [facility] Leukocyte esterase Test strip Ql (U) Negative Negative [facility] Specific gravity Relative Density (U) 1.020 Invalid Interpretation Code 1.003-1.029 [facility] - Chemistry and C hemistry - challengeon 10-03-2015 Bilirubin Ql (U) Negative Invalid Interpretation Code Negative [facility]ilin[facility] (U) [Mass/Vol] normal Invalid Interpretation Code normal [facility] - Hematology and Cell countson 10-03-2015 Hemoglobin Ql (U) Negative Invalid Interpretation Code Negative [facility] Urinalysis[facility] Leukocyte esterase Test strip Ql (U) Negative Invalid Interpretation Code Negative [facility] Nitrite Ql (U) Negative Invalid Interpretation Code Negative [email or web address] [facility] Protein Ql (U) Negative Invalid Interpretation Code Negative [place] [facility] Metabolic Panelon 10-03-2015 Anion gap molar conc 24 mmol/L Invalid Interpretation Code 10-20 [place] [facility] Calcium mass conc 9.30 mg/dL Invalid Interpretation Code 8.5-10.8 [place] [facility] Chloride molar conc 93 mmol/L Invalid Interpretation Code 100-112 [place] [facility] CO2 molar conc 23 mmol/L Invalid Interpretation Code 23-30 [place] [facility] Creatinine mass conc 0.90 mg/dL Invalid Interpretation Code 0.5-1.5 [place] [facility] GFR/1.73 sq M predicted among non-blacks MDRD vol rate/area (S/P/Bld) 89 mL/min/{1.73_m2} Invalid Interpretation Code [place] [facility] Glucose mass conc 491.0 mg/dL Invalid Interpretation Code 80-117 [place] [facility] Potassium molar conc 4.0 mmol/L Invalid Interpretation Code 3.5-5.3 [place] [facility] Sodium molar conc 136 mmol/L Invalid Interpretation Code 135-148 [place] [facility] Urea nitrogen mass conc 13.0 mg/dL Invalid Interpretation Code 7-25 [place] [facility] Urea nitrogen/Creatinine mass ratio 14 mg/mg Invalid Interpretation Code 6-20 [place] [facility] Otheron 10-03-2015 Bilirubin Ql (U) Negative Negative [facility] C peptide mass conc 5.0 Invalid Interpretation Code 1.1-4.4 [place] [facility] Cortisol mass conc 4.0 ug/dL Invalid Interpretation Code 3.1-22.4 [place] [facility] Glucose Test strip mass conc (U) 4+ Invalid Interpretation Code Negative [place] [facility] Hemoglobin Ql (U) Negative Negative [facility] [employer] Nitrite Ql (U) Negative Negative [place] [facility] pH (U) 5 [pH] Invalid Interpretation Code 4.5-7.8 [place] [facility] Protein Ql (U) Negative Negative [place] [facility] Urobilinogen Test strip mass conc (U) normal normal [place] [facility] See Above Invalid Interpretation Code 0-0 [place] [facility] Urinalysison 10-03-2015 Clarity Nom (U) clear Invalid Interpretation Code Clear [place] [facility] Color Nom (U) yellow Invalid Interpretation Code yellow [place] [facility] Ketones Ql (U) 1+ Invalid Interpretation Code Negative [place] [facility] Leukocyte esterase Test strip Ql (U) Negative Negative [email or web address] Specific gravity Relative Density (U) 1.005 Invalid Interpretation Code 1.003-1.029 [place] [facility] Hematologyon 08-26-2015 Basophils #/vol (Bld) 0.10 10*3/uL Invalid Interpretation Code 0.0-0.1 [facility] Basophils/100 WBC (Bld) 0.70 % Invalid Interpretation Code 0.0-1.0 [facility] Eosinophils #/vol (Bld) 0.30 10*3/uL Invalid Interpretation Code 0.0-0.5 [email or web address] Eosinophils/100 WBC (Bld) 3.10 % Invalid Interpretation Code 0.0-7.0 [place] [facility] ESR Velocity (Bld) 31 mm/h Invalid Interpretation Code 0-15 [place] [facility] Hematocrit Volume Fraction (Bld) 39.50 % Invalid Interpretation Code 37.8-51.0 [email or web address] Hemoglobin mass conc (Bld) 13.10 g/dL Invalid Interpretation Code 12.6-17.0 [email or web address] Lymphocytes #/vol (Bld) 2.10 10*3/uL Invalid Interpretation Code 0.9-3.1 [email or web address] Lymphocytes/100 WBC (Bld) 21.80 % Invalid Interpretation Code 15.0-46.0 [email or web address] MCH Entitic mass (RBC) 31.50 pg Invalid Interpretation Code 25.7-33.8 [email or web address] MCV Entitic volume (RBC) 94.60 fL Invalid Interpretation Code 82.0-98.4 [place] [facility] Monocytes #/vol (Bld) 0.70 10*3/uL Invalid Interpretation Code 0.3-1.0 [email or web address] Monocytes/100 WBC (Bld) 7.20 % Invalid Interpretation Code 4.0-12.0 [email or web address] Neutrophils #/vol (Bld) 6.20 10*3/uL Invalid Interpretation Code 1.8-7.9 [email or web address] Neutrophils/100 WBC (Bld) 67.20 % Invalid Interpretation Code 43.0-76.0 [email or web address] Platelets #/vol (Bld) 228.0 10*3/uL Invalid Interpretation Code 150-400 [place] [facility] RBC #/vol (Bld) 4.180 10*6/uL Invalid Interpretation Code 4.34-5.61 [place] [facility] WBC #/vol (Bld) 9.40 10*3/uL Invalid Interpretation Code 3.9-10.3 [place] [facility] Metabolic Panelon 08-26-2015 Protein mass conc g/dL CLASS 0 [facility] Otheron 08-26-2015 Erythrocyte distribution width Ratio (RBC) 12.20 % Invalid Interpretation Code 11.5-15.5 [place] [facility] Immune complex IgE Qn 14 Invalid Interpretation Code 0-100 [place] [facility] MCHC mass conc (RBC) 33.30 g/dL Invalid Interpretation Code 32.0-36.0 [place] [facility] Platelet mean volume Entitic volume (Bld) 8.50 fL Invalid Interpretation Code 7.4-10.4 [place] [facility] <0.10 Invalid Interpretation Code CLASS 0 [place] [facility] COMMENT Invalid Interpretation Code [place] [facility]acon 08-05-2015 Cholesterol in HDL mass conc 60.0 mg/dL Invalid Interpretation Code 36-100 [place] [facility] Cholesterol in LDL mass conc 58.0 mg/dL Invalid Interpretation Code 0-130 [facility] Cholesterol mass conc 150.0 mg/dL Invalid Interpretation Code 0-200 [place] [facility] Triglyceride mass conc 160.0 mg/dL Invalid Interpretation Code 30-150 [place] [facility] Metabolic Panelon 08-05-2015 ALT enzyme act/vol 64.0 U/L Invalid Interpretation Code 0-50 [facility] Anion gap molar conc 18 mmol/L Invalid Interpretation Code 10-20 [facility] AST enzyme act/vol 39.0 U/L Invalid Interpretation Code 0-40 [facility] Calcium mass conc 9.70 mg/dL Invalid Interpretation Code 8.5-10.8 [facility] Chloride molar conc 92 mmol/L Invalid Interpretation Code 100-112 [facility] CO2 molar conc 26 mmol/L Invalid Interpretation Code 23-30 [facility] Creatinine mass conc 1.70 mg/dL Invalid Interpretation Code 0.5-1.5 [facility] GFR/1.73 sq M predicted among non-blacks MDRD vol rate/area (S/P/Bld) 43 mL/min/{1.73_m2} Invalid Interpretation Code [facility] Glucose mass conc 199.0 mg/dL Invalid Interpretation Code 80-117 [facility] Hemoglobin A1c/Hemoglobin.tota l mass fraction (Bld) 8.90 % Invalid Interpretation Code 4.3-6.3 [facility] Potassium molar conc 4.3 mmol/L Invalid Interpretation Code 3.5-5.3 [facility] Sodium molar conc 132 mmol/L Invalid Interpretation Code 135-148 [facility] Urea nitrogen mass conc 24.0 mg/dL Invalid Interpretation Code 7-25 [facility] Urea nitrogen/Creatinine mass ratio 14 mg/mg Invalid Interpretation Code 6-20 [facility] Otheron 08-05-2015 Albumin mass conc (U) < 12.0 Invalid Interpretation Code < 4.0-17.0 [facility] Cholesterol in VLDL mass conc 32.0 mg/dL Invalid Interpretation Code 0-39 [facility] Cholesterol.total/C holesterol in HDL mass ratio 3 {ratio} Invalid Interpretation Code [facility] 209 [facility] 209.0 mg/dL Invalid Interpretation Code [facility] 64.0 U/L 0-50 [facility] Urinalysison 08-05-2015 Creatinine mass conc (U) 186.0 mg/dL Invalid Interpretation Code Not Estab. mg/dL [facility] Vital Signs Date Time Vital Sign Value Performing Clinician Facility 12-31-2024 17:48-0400 Body weight 113.4 kg [facility]ia [employer] 12-31-2024 17:48-0400 Diastolic blood pressure 80 mm[Hg] [employer] 12-31-2024 17:48-0400 Heart rate 76 /min [employer] 12-31-2024 17:48-0400 Systolic blood pressure 138 mm[Hg] [employer] 12-25-2024 14:52-0400 Body height 177.8 cm Ericka Venturocket 12-25-2024 14:52-0400 Body mass index (BMI) [Ratio] 36.16 kg/m2 [facility]ka [facility] 12-25-2024 14:52-0400 Body surface area Derived from formula 2.38 m2 Ericka Muniz [email or web address] 12-25-2024 14:52-0400 Body weight 114.31 kg Ericka Muniz [email or web address] 12-25-2024 14:52-0400 Diastolic blood pressure 68 mm[Hg] Ericka Muniz [place] [facility] 12-25-2024 14:52-0400 Heart rate 86 /min Ericka Muniz [email or web address] 12-25-2024 14:52-0400 Systolic blood pressure 138 mm[Hg] Ericka Muniz [email or web address] 08-14-2024 15:21-0500 Body height 180.34 cm Ericka Muniz MD Work Phone: [facility] 08-14-2024 15:21-0500 Body mass index (BMI) [Ratio] 34.5 kg/m2 Ericka Muniz MD Work Phone: [facility] 08-14-2024 15:21-0500 Body weight 112.49 kg Ericka Muniz MD Work Phone: [facility] 08-14-2024 15:21-0500 Diastolic blood pressure 90 mm[Hg] Ericka Muniz MD Work Phone: [facility] 08-14-2024 15:21-0500 Heart rate 103 /min Ericka Muniz MD Work Phone: [facility] 08-14-2024 15:21-0500 Respiratory rate 20 /min Ericka Muniz MD Work Phone: [facility] 08-14-2024 15:21-0500 SaO2% (BldA) [Mass fraction] 97 % Ericka Muniz MD Work Phone: [facility] 08-14-2024 15:21-0500 Systolic blood pressure 137 mm[Hg] Ericka Muniz MD Work Phone: [facility] 04-26-2024 17:02-0400 Body weight 113.85 kg [facility]ia [email or web address] 04-26-2024 17:02-0400 Diastolic blood pressure 80 mm[Hg] [email or web address] 04-26-2024 17:02-0400 Heart rate 78 /min [email or web address] 04-26-2024 17:02-0400 Systolic blood pressure 122 mm[Hg] [facility]inthia [email or web address] 03-21-2024 14:06-0400 Body height 179.07 cm Ericka Venturocket 03-21-2024 14:06-0400 Body mass index (BMI) [Ratio] 34.52 kg/m2 Ericka Venturocket 03-21-2024 14:06-0400 Body surface area Derived from formula 2.35 m2 Ericka Venturocket 03-21-2024 14:06-0400 Body weight 110.68 kg Ericka Venturocket 03-21-2024 14:06-0400 Diastolic blood pressure 76 mm[Hg] Ericka Venturocket 03-21-2024 14:06-0400 Heart rate 72 /min Ericka Venturocket 03-21-2024 14:06-0400 Systolic blood pressure 136 mm[Hg] Ericka Venturocket 12-14-2023 15:17-0400 Body height 180.34 cm RADHA Upton Work Phone: [facility] 12-14-2023 15:17-0400 Body temperature 97.6 [degF] [employer] Mark Alexsandra Work Phone: [facility] 12-14-2023 15:17-0400 Body weight 108.3 kg [employer] Mark Alexsandra Work Phone: [facility] 12-14-2023 15:17-0400 Diastolic blood pressure 87 mm[Hg] [employer] Mark Alexsandra Work Phone: [facility] 12-14-2023 15:17-0400 Heart rate 97 /min [employer] Mark Alexsandra Work Phone: [facility] 12-14-2023 15:17-0400 Respiratory rate 18 /min [employer] Mark Alexsandra Work Phone: [facility] 12-14-2023 15:17-0400 SaO2% (BldA) [Mass fraction] 95 % [employer] Mark Alexsandra Work Phone: [facility] 12-14-2023 15:17-0400 Systolic blood pressure 158 mm[Hg] [employer] Mark Alexsandra Work Phone: [facility] 12-03-2023 16:32-0400 Body height 180.34 cm [employer] Mark Alexsandra Work Phone: [facility] 12-03-2023 16:32-0400 Body temperature 97.9 [degF] [employer] Mark Alexsandra Work Phone: [facility] 12-03-2023 16:32-0400 Body weight 111.25 kg [employer] Mark Alexsandra Work Phone: [facility] 12-03-2023 16:32-0400 Diastolic blood pressure 79 mm[Hg] [employer]ENT Mark Alexsandra Work Phone: [facility] 12-03-2023 16:32-0400 Heart rate 98 /min [employer] Mark Alexsandra Work Phone: [facility] 12-03-2023 16:32-0400 Respiratory rate 17 /min [employer] Mark Alexsandra Work Phone: [facility] 12-03-2023 16:32-0400 SaO2% (BldA) [Mass fraction] 95 % TOUR AGENTDouglas Upton Work Phone: [facility] 12-03-2023 16:32-0400 Systolic blood pressure 159 mm[Hg] RADHA Upton Work Phone: [facility] 11-14-2023 14:24-0400 Body height 179.07 cm Ericka Venturocket 11-14-2023 14:24-0400 Diastolic blood pressure 84 mm[Hg] Ericka Venturocket 11-14-2023 14:24-0400 Systolic blood pressure 118 mm[Hg] Ericka Venturocket 11-14-2023 13:14-0400 Body weight 109.77 kg Eircka [facility] 11-14-2023 13:14-0400 Diastolic blood pressure 80 mm[Hg] Ericka Venturocket 11-14-2023 13:14-0400 Heart rate 76 /min Ericka Venturocket 11-14-2023 13:14-0400 Systolic blood pressure 170 mm[Hg] Ericka Venturocket 01-25-2023 16:12-0400 Body height 180.34 cm Ericka Venturocket 01-25-2023 16:12-0400 Body mass index (BMI) [Ratio] 33.19 kg/m2 Ericka Venturocket 01-25-2023 16:12-0400 Body surface area Derived from formula 2.33 m2 Ericka [employer] 01-25-2023 16:12-0400 Body weight 107.96 kg Ericka Venturocket 01-25-2023 16:12-0400 Diastolic blood pressure 72 mm[Hg] Ericka Muniz [facility] 01-25-2023 16:12-0400 Heart rate 90 /min Ericka Muniz [facility] 01-25-2023 16:12-0400 Systolic blood pressure 128 mm[Hg] Ericka Venturocket 07-27-2022 16:23-0500 Body height 180.34 cm Edilberto [employer] 07-27-2022 16:23-0500 Body mass index (BMI) [Ratio] 33.33 kg/m2 Edilberto [employer] 07-27-2022 16:23-0500 Body surface area Derived from formula 2.33 m2 Edilberto [employer] 07-27-2022 16:23-0500 Body weight 108.41 kg Edilberto [employer] 07-27-2022 16:23-0500 Body weight 0.1 {percentile} Edilberto [employer] 07-27-2022 16:23-0500 Diastolic blood pressure 68 mm[Hg] Edilberto [employer] 07-27-2022 16:23-0500 Heart rate 100 /min Edilberto [employer] 07-27-2022 16:23-0500 Systolic blood pressure 110 mm[Hg] Edilberto [employer] 05-27-2022 14:45-0500 Body height 182.88 cm [facility] 05-27-2022 14:45-0500 Body mass index (BMI) [Ratio] 24.4 kg/m2 [facility] 05-27-2022 14:45-0500 Body weight 81.64 kg [facility] 05-27-2022 14:39-0500 Body temperature 97.7 [degF] [facility] 05-27-2022 14:39-0500 Diastolic blood pressure 78 mm[Hg] [facility] 05-27-2022 14:39-0500 Heart rate 90 /min [facility] 05-27-2022 14:39-0500 Respiratory rate 20 /min [facility] 05-27-2022 14:39-0500 Systolic blood pressure 153 mm[Hg] [facility] 05-05-2022 14:50-0400 Body height 182.88 cm [facility] 05-05-2022 14:50-0400 Body mass index (BMI) [Ratio] 24.4 kg/m2 [facility] 05-05-2022 14:50-0400 Body weight 81.64 kg [facility] 05-05-2022 14:36-0400 Body temperature 97.9 [degF] [facility] 05-05-2022 14:36-0400 Diastolic blood pressure 82 mm[Hg] [facility] 05-05-2022 14:36-0400 Heart rate 106 /min [facility] 05-05-2022 14:36-0400 Respiratory rate 18 /min [facility] 05-05-2022 14:36-0400 Systolic blood pressure 153 mm[Hg] [facility] 04-14-2022 14:46-0400 Body height 182.88 cm [facility] 04-14-2022 14:46-0400 Body mass index (BMI) [Ratio] 24.4 kg/m2 [facility] 04-14-2022 14:46-0400 Body weight 81.64 kg [facility] 04-14-2022 14:14-0400 Body temperature 98.6 [degF] [facility] 04-14-2022 14:14-0400 Diastolic blood pressure 98 mm[Hg] [facility] 04-14-2022 14:14-0400 Heart rate 112 /min [facility] 04-14-2022 14:14-0400 Respiratory rate 18 /min [facility] 04-14-2022 14:14-0400 Systolic blood pressure 168 mm[Hg] [facility] 04-01-2022 18:08-0400 Body height 182.88 cm [facility] 04-01-2022 18:08-0400 Body temperature 98.5 [degF] [facility] 04-01-2022 18:08-0400 Body weight 108.6 kg [facility] 04-01-2022 18:08-0400 Diastolic blood pressure 89 mm[Hg] [facility] 04-01-2022 18:08-0400 Heart rate 112 /min [facility] 04-01-2022 18:08-0400 Respiratory rate 20 /min [facility] 04-01-2022 18:08-0400 SaO2% (BldA) [Mass fraction] 97 % [facility] 04-01-2022 18:08-0400 Systolic blood pressure 143 mm[Hg] [facility] 02-17-2022 15:25-0400 Body height 180.34 cm Franky Dyana [facility] 02-17-2022 15:25-0400 Body mass index (BMI) [Ratio] 33.75 kg/m2 [facility] 02-17-2022 15:25-0400 Body surface area Derived from formula 2.35 m2 [email or web address] 02-17-2022 15:25-0400 Body surface area Derived from formula 2.34 m2 Franky [facility] [facility] 02-17-2022 15:25-0400 Body weight 109.77 kg Franky Vidaland [employer] [facility] 02-17-2022 15:25-0400 Diastolic blood pressure 72 mm[Hg] Franky Vidaland [employer] [facility] 02-17-2022 15:25-0400 Heart rate 84 /min Franky Vidaland [employer] [facility] 02-17-2022 15:25-0400 Systolic blood pressure 126 mm[Hg] Franky Vidaland [employer] [facility] 02-17-2022 14:30-0400 Body height 180.34 cm Ericka Venturocket 02-17-2022 14:30-0400 Body mass index (BMI) [Ratio] 33.75 kg/m2 Ericka [facility]urocket 02-17-2022 14:30-0400 Body surface area Derived from formula 2.35 m2 Ericka [employer] 02-17-2022 14:30-0400 Body surface area Derived from formula 2.34 m2 Ericka [facility] 02-17-2022 14:30-0400 Body weight 109.77 kg Ericka [facility]urocket 02-17-2022 14:30-0400 Diastolic blood pressure 76 mm[Hg] Ericka [facility]urocket 02-17-2022 14:30-0400 Heart rate 88 /min Ericka [facility]cket 02-17-2022 14:30-0400 Systolic blood pressure 124 mm[Hg] Ericka [employer]cket 01-15-2022 13:42-0400 Body height 180.34 cm Edilberto Zamora [facility] 01-15-2022 13:42-0400 Body mass index (BMI) [Ratio] 33.47 kg/m2 Edilberto JaraO [facility]reg[facility] 01-15-2022 13:42-0400 Body surface area Derived from formula 2.34 m2 Edilberto [employer] 01-15-2022 13:42-0400 Body weight 108.86 kg Edilberto [employer] 01-15-2022 13:42-0400 Diastolic blood pressure 82 mm[Hg] [employer]il[employer]to [employer] 01-15-2022 13:42-0400 Heart rate 84 /min Edilberto [employer] 01-15-2022 13:42-0400 Systolic blood pressure 132 mm[Hg] [employer]ilberto [employer] 10-20-2021 16:47-0400 Body height 180.34 cm Franky [employer] 10-20-2021 16:47-0400 Body mass index (BMI) [Ratio] 34.03 kg/m2 [facility]y [employer] 10-20-2021 16:47-0400 Body surface area Derived from formula 2.35 m2 [facility]y [employer] 10-20-2021 16:47-0400 Body weight 110.68 kg Franky [employer] 10-20-2021 16:47-0400 Diastolic blood pressure 78 mm[Hg] [employer] [employer] 10-20-2021 16:47-0400 Heart rate 88 /min [employer] [employer] 10-20-2021 16:47-0400 Systolic blood pressure 122 mm[Hg] Franky [employer] 09-17-2021 16:22-0500 Body height 180.34 cm Franky [employer] 09-17-2021 16:22-0500 Body mass index (BMI) [Ratio] 34.17 kg/m2 Franky [employer] 09-17-2021 16:22-0500 Body surface area Derived from formula 2.36 m2 [employer] 09-17-2021 16:22-0500 Body weight 111.13 kg Franky [employer] 09-17-2021 16:22-0500 Diastolic blood pressure 78 mm[Hg] [facility]y [employer] 09-17-2021 16:22-0500 Heart rate 84 /min Franky [employer] 09-17-2021 16:22-0500 Systolic blood pressure 142 mm[Hg] Franky [employer] 09-03-2021 14:40-0500 Body height 180.34 cm [facility] 09-03-2021 14:40-0500 Body mass index (BMI) [Ratio] 35.15 kg/m2 [facility] 09-03-2021 14:40-0500 Body surface area Derived from formula 2.39 m2 [facility] 09-03-2021 14:40-0500 Body weight 114.31 kg [facility] 09-03-2021 14:40-0500 Diastolic blood pressure 74 mm[Hg] Edilberto Zamora [facility] 09-03-2021 14:40-0500 Heart rate 84 /min Edilberto Zamora [facility] 09-03-2021 14:40-0500 Systolic blood pressure 136 mm[Hg] Edilberto JaraO Entregador 03-19-2021 14:33-0400 Body height 181.61 cm Edilberto [employer] 03-19-2021 14:33-0400 Body mass index (BMI) [Ratio] 33.49 kg/m2 Edilberto [employer] 03-19-2021 14:33-0400 Body surface area Derived from formula 2.36 m2 Edilberto [employer] 03-19-2021 14:33-0400 Body weight 110.45 kg Edilberto [employer] 03-19-2021 14:33-0400 Diastolic blood pressure 80 mm[Hg] Edilberto JaraO Entregador 03-19-2021 14:33-0400 Heart rate 88 /min Edilberto JaraO Entregador 03-19-2021 14:33-0400 Systolic blood pressure 126 mm[Hg] Edilberto [employer] 12-23-2020 13:35-0400 Body height 181.61 cm Ericka Muniz [employer] 12-23-2020 13:35-0400 Body mass index (BMI) [Ratio] 33.01 kg/m2 Ericka [employer] 12-23-2020 13:35-0400 Body surface area Derived from formula 2.34 m2 Ericka [employer] 12-23-2020 13:35-0400 Body weight 108.86 kg Ericka [employer] [facility] 12-23-2020 13:35-0400 Diastolic blood pressure 86 mm[Hg] Ericka Venturo[employer] 12-23-2020 13:35-0400 Heart rate 83 /min Ericka [employer] 12-23-2020 13:35-0400 Systolic blood pressure 126 mm[Hg] Ericka Vent[employer] 09-09-2020 15:15-0500 BMI (Body Mass Index) 33.56 kg/m2 Edilberto [employer] 09-09-2020 15:15-0500 Body weight 110.68 kg Edilberto [employer] 09-09-2020 15:15-0500 BP Diastolic 74 mm[Hg] Edilberto [employer] 09-09-2020 15:15-0500 BP Systolic 130 mm[Hg] Edilberto [employer] 09-09-2020 15:15-0500 BSA (Body Surface Area) 2.36 m2 Edilberto [employer] 09-09-2020 15:15-0500 Height 181.61 cm Edilberto [employer] 09-09-2020 15:15-0500 Pulse (Heart Rate) 104 /min Edilberto [facility] [employer] [facility] [employer] 04-08-2020 17:01-0400 BMI (Body Mass Index) 33.46 kg/m2 Edilberto Zamora [employer] 04-08-2020 17:01-0400 Body weight 110.37 kg Edilberto Zamroa [employer] [facility] 04-08-2020 17:01-0400 BP Diastolic 78 mm[Hg] Edilberto Zamora [employer] [facility] 04-08-2020 17:01-0400 BP Systolic 120 mm[Hg] Edilberto Zamora [employer] [facility] 04-08-2020 17:01-0400 BSA (Body Surface Area) 2.36 m2 Edilberto TSBncfitmob [facility] 04-08-2020 17:01-0400 Height 181.61 cm Edilberto [employer]SBnc[employer]Media305 04-08-2020 17:01-0400 Pulse (Heart Rate) 78 /min Edilberto Zamora [place] [facility] [employer] [facility] 02-21-2020 17:34-0400 BMI (Body Mass Index) 33.83 kg/m2 Ericka Well[employer]ro[employer] [facility] 02-21-2020 17:34-0400 Body Temperature 97.8 [degF] [facility]ka [facility] [employer] [facility] 02-21-2020 17:34-0400 Body weight 111.59 kg Ericka [employer]ro[employer] [facility] 02-21-2020 17:34-0400 BP Diastolic 70 mm[Hg] Ericka [employer] 02-21-2020 17:34-0400 BP Systolic 132 mm[Hg] Ericka [employer] 02-21-2020 17:34-0400 BSA (Body Surface Area) 2.37 m2 Ericka [employer] 02-21-2020 17:34-0400 Height 181.61 cm Ericka Silveirafitmob [facility] 02-21-2020 17:34-0400 Pulse (Heart Rate) 88 /min Ericka eng [employer] [facility] 12-28-2019 14:30-0400 Body Temperature 98.6 [degF] [facility] [place] 12-28-2019 14:30-0400 BP Diastolic 88 mm[Hg] [facility] [place] 12-28-2019 14:30-0400 BP Systolic 135 mm[Hg] [facility] [place] 12-28-2019 14:30-0400 Pulse (Heart Rate) 80 /min [facility] 12-28-2019 14:30-0400 Pulse Oximetry 93 % [facility] [place] 12-28-2019 14:30-0400 Respiratory Rate 18 /min [facility] 12-28-2019 08:19-0400 BMI (Body Mass Index) 33.63 kg/m2 [facility] 12-28-2019 08:19-0400 Body weight 112.49 kg [facility] [place] 12-28-2019 08:19-0400 Height 182.9 cm [facility] [place] 11-26-2019 17:01-0400 BMI (Body Mass Index) 34.24 kg/m2 Ericka Monroe [employer] [facility] 11-26-2019 17:01-0400 Body Temperature 98.5 [degF] Ericka Meraz [employer] [facility] 11-26-2019 17:01-0400 Body weight 112.95 kg Ericka Silveirahard [employer] [facility] 11-26-2019 17:01-0400 BP Diastolic 72 mm[Hg] Ericka Silveirahard [employer] [facility] 11-26-2019 17:01-0400 BP Systolic 116 mm[Hg] Ericka Muniz [employer] 11-26-2019 17:01-0400 BSA (Body Surface Area) 2.39 m2 Ericka Muniz [employer] 11-26-2019 17:010400 Height 181.61 cm Ericka Muniz [employer] 11-26-2019 17:01-0400 Pulse (Heart Rate) 100 /min Ericka Monroe [employer] 08-28-2019 15:09-0500 BMI (Body Mass Index) 33.83 kg/m2 Edilberto JaraO Entregador 08-28-2019 15:09-0500 Body weight 111.59 kg Edilberto [employer] 08-28-2019 15:09-0500 BP Diastolic 80 mm[Hg] Edilberto [employer] 08-28-2019 15:09-0500 BP Systolic 126 mm[Hg] Edilberto [employer] 08-28-2019 15:09-0500 BSA (Body Surface Area) 2.37 m2 Edilberto [employer] 08-28-2019 15:09-0500 Height 181.61 cm Edilberto [employer] 08-28-2019 15:09-0500 Pulse (Heart Rate) 80 /min Edilberto [employer] 05-28-2019 18:11-0500 BMI (Body Mass Index) 33.51 kg/m2 Ericka Muniz [employer] 05-28-2019 18:11-0500 Body weight 111.13 kg Ericka Muniz [employer] 05-28-2019 18:11-0500 BP Diastolic 74 mm[Hg] Ericka Muniz [employer] 05-28-2019 18:11-0500 BP Systolic 124 mm[Hg] Ericka Muniz [employer] 05-28-2019 18:11-0500 BSA (Body Surface Area) 2.37 m2 Ericka Muniz [employer] 05-28-2019 18:11-0500 Height 182.12 cm Ericka Muniz [employer] 05-28-2019 18:11-0500 Pulse (Heart Rate) 80 /min Ericka Muniz [employer] 04-17-2019 17:27-0400 BMI (Body Mass Index) 33.96 kg/m2 Edilberto [employer] 04-17-2019 17:27-0400 Body weight 112.95 kg Edilberto [employer] 04-17-2019 17:27-0400 BP Diastolic 86 mm[Hg] Edilberto [employer] 04-17-2019 17:27-0400 BP Systolic 122 mm[Hg] Edilberto [employer] 04-17-2019 17:27-0400 BSA (Body Surface Area) 2.39 m2 Edilberto [employer] 04-17-2019 17:27-0400 Height 182.37 cm Edilberto [employer] 04-17-2019 17:27-0400 Pulse (Heart Rate) 102 /min Edilberto [employer] 01-25-2019 13:01-0400 BMI (Body Mass Index) 34.3 kg/m2 Ericka Venturocket 01-25-2019 13:01-0400 Body weight 114.08 kg Ericka [employer]305 01-25-2019 13:01-0400 BP Diastolic 92 mm[Hg] Ericka [employer] 01-25-2019 13:01-0400 BP Systolic 142 mm[Hg] Ericka [employer] 01-25-2019 13:01-0400 BSA (Body Surface Area) 2.4 m2 Ericka Muniz [employer] 01-25-2019 13:01-0400 Height 182.37 cm Ericka Muniz [employer] 01-25-2019 13:01-0400 Pulse (Heart Rate) 88 /min Ericka [employer] 12-12-2018 13:49-0400 BMI (Body Mass Index) 34.5 kg/m2 Edilberto JaraO Entregador 12-12-2018 13:49-0400 Body weight 114.76 kg Ericka Muniz [employer] 12-12-2018 13:49-0400 BP Diastolic 88 mm[Hg] Edilberto [employer] 12-12-2018 13:49-0400 BP Systolic 148 mm[Hg] Edilberto [employer] 12-12-2018 13:49-0400 BSA (Body Surface Area) 2.41 m2 Edilberto [employer] 12-12-2018 13:49-0400 Height 182.37 cm Edilberto [employer] 12-12-2018 13:49-0400 Pulse (Heart Rate) 90 /min Edilberto [employer] 12-12-2018 13:49-0400 Weight 114.76 kg Edilberto Zamora [employer] 10-02-2018 13:45-0400 BMI (Body Mass Index) 34.38 kg/m2 Edilberto JaraO Entregador 10-02-2018 13:45-0400 Body weight 113.4 kg Ericka Muniz [employer] 10-02-2018 13:45-0400 BP Diastolic 90 mm[Hg] Edilberto [employer] 10-02-2018 13:45-0400 BP Systolic 164 mm[Hg] Edilberto [employer] 10-02-2018 13:45-0400 BSA (Body Surface Area) 2.39 m2 Edilberto [employer] 10-02-2018 13:45-0400 Height 181.61 cm Edilberto [employer] 10-02-2018 13:45-0400 Pulse (Heart Rate) 90 /min Edilberto [employer] 10-02-2018 13:45-0400 Weight 113.4 kg Edilberto JaraO Entregador 08-30-2018 13:14-0500 BMI (Body Mass Index) 33.74 kg/m2 Edilberto [employer] 08-30-2018 13:14-0500 Body weight 111.27 kg Ericka Muniz [employer] 08-30-2018 13:14-0500 BP Diastolic 88 mm[Hg] Edilberto [employer] 08-30-2018 13:14-0500 BP Systolic 142 mm[Hg] Edilberto JaraO Entregador 08-30-2018 13:14-0500 BSA (Body Surface Area) 2.37 m2 Edilberto Zamora [employer] 08-30-2018 13:14-0500 Height 181.61 cm Edilberto JaraO Entregador 08-30-2018 13:14-0500 Pulse (Heart Rate) 84 /min Edilberto [employer] 08-30-2018 13:14-0500 Weight 111.27 kg Edilberto JaraO Entregador 06-19-2018 13:18-0500 Body weight 112.04 kg Ericka Muniz [employer] 06-19-2018 13:18-0500 BP Diastolic 80 mm[Hg] Edilberto JaraO Entregador 06-19-2018 13:18-0500 BP Systolic 138 mm[Hg] Edilberto JaraO Entregador 06-19-2018 13:18-0500 Pulse (Heart Rate) 70 /min Edilberto [employer] 06-19-2018 13:18-0500 Weight 112.04 kg Edilberto [employer] 03-20-2018 14:25-0400 BMI (Body Mass Index) 32.28 kg/m2 Edilberto [employer] 03-20-2018 14:25-0400 Body weight 107.96 kg Ericka Muniz [employer] 03-20-2018 14:25-0400 BP Diastolic 80 mm[Hg] Edilberto [employer] 03-20-2018 14:25-0400 BP Systolic 142 mm[Hg] Edilberto [employer] 03-20-2018 14:25-0400 BSA (Body Surface Area) 2.34 m2 Edilberto [employer] 03-20-2018 14:25-0400 Height 182.88 cm Edilberto [employer] 03-20-2018 14:25-0400 Pulse (Heart Rate) 78 /min Edilberto [employer] 03-20-2018 14:25-0400 Weight 107.96 kg Edilberto Zamora [employer] 03-01-2018 13:34-0400 BMI (Body Mass Index) 32.55 kg/m2 Edilberto Zamora [employer] 03-01-2018 13:34-0400 Body weight 108.86 kg Ericka [employer] 03-01-2018 13:34-0400 BP Diastolic 104 mm[Hg] Edilberto Zamora [employer] 03-01-2018 13:34-0400 BP Systolic 138 mm[Hg] Edilberto Zamora [employer] 03-01-2018 13:34-0400 BSA (Body Surface Area) 2.35 m2 Edilberto Zamora [employer] 03-01-2018 13:34-0400 Height 182.88 cm Edilberto Zamora [employer] 03-01-2018 13:34-0400 Pulse (Heart Rate) 104 /min Edilberto [employer] 03-01-2018 13:34-0400 Weight 108.86 kg Edilberto Zamora [employer] 12-13-2017 13:50-0400 BMI (Body Mass Index) 33.36 kg/m2 Edilberto Zamora [employer] 12-13-2017 13:50-0400 Body weight 111.59 kg Ericka [employer]305 12-13-2017 13:50-0400 BP Diastolic 78 mm[Hg] Edilberto JaraO Entregador 12-13-2017 13:50-0400 BP Systolic 144 mm[Hg] Edilberto [employer] 12-13-2017 13:50-0400 BSA (Body Surface Area) 2.38 m2 Edilberto JaraO Entregador 12-13-2017 13:50-0400 Height 182.88 cm Edilberto [employer] 12-13-2017 13:50-0400 Pulse (Heart Rate) 76 /min Edilberto [employer]SB[employer]chard Francisco [facility] 12-13-2017 13:50-0400 Weight 111.59 kg Edilberto [employer]araAdaptive [employer]ote[employer] Inc 09-01-2017 13:48-0500 BMI (Body Mass Index) 33.09 kg/m2 Edilberto JaraO Entregador 09-01-2017 13:48-0500 Body weight 110.68 kg Ericka Muniz [employer] 09-01-2017 13:48-0500 BP Diastolic 92 mm[Hg] Edilberto [employer] 09-01-2017 13:48-0500 BP Systolic 128 mm[Hg] Edilberto [employer] 09-01-2017 13:48-0500 BSA (Body Surface Area) 2.37 m2 Edilberto Zamora [employer] 09-01-2017 13:48-0500 Height 182.88 cm Edilberto Zamora [employer] 09-01-2017 13:48-0500 Pulse (Heart Rate) 80 /min Edilberto Silveirahard [employer] 09-01-2017 13:48-0500 Weight 110.68 kg Edilberto Zamora [employer] 08-05-2017 13:30-0500 BMI (Body Mass Index) 33.63 kg/m2 Edilberto Zamora [employer] 08-05-2017 13:30-0500 Body weight 112.49 kg Ericka Frazier[employer]Saf 08-05-2017 13:30-0500 BP Diastolic 80 mm[Hg] Edilberto Zamora [employer] 08-05-2017 13:30-0500 BP Systolic 140 mm[Hg] Edilberto JaraO Entregador 08-05-2017 13:30-0500 BSA (Body Surface Area) 2.39 m2 Edilberto [employer] 08-05-2017 13:30-0500 Height 182.88 cm Edilberto Zamora [employer] 08-05-2017 13:30-0500 Pulse (Heart Rate) 84 /min Edilberto [employer] 08-05-2017 13:30-0500 Weight 112.49 kg Edilberto JaraO Entregador 06-27-2017 17:18-0500 BMI (Body Mass Index) 33.63 kg/m2 Edilberto [employer] 06-27-2017 17:18-0500 Body weight 112.49 kg Ericka Muniz [employer] 06-27-2017 17:18-0500 BP Diastolic 90 mm[Hg] Edilberto JaraO Entregador 06-27-2017 17:18-0500 BP Systolic 140 mm[Hg] Edilberto [employer] 06-27-2017 17:18-0500 BSA (Body Surface Area) 2.39 m2 Edilberto [employer] 06-27-2017 17:18-0500 Height 182.88 cm Edilberto [employer] 06-27-2017 17:18-0500 Pulse (Heart Rate) 80 /min Edilberto [employer] 06-27-2017 17:18-0500 Weight 112.49 kg Edilberto [employer] 04-05-2017 13:30-0400 Body weight 106.6 kg Ericka Muniz [employer] 04-05-2017 13:30-0400 BP Diastolic 80 mm[Hg] Edilberto [employer] 04-05-2017 13:30-0400 BP Systolic 118 mm[Hg] Edilberto [employer] 04-05-2017 13:30-0400 Pulse (Heart Rate) 70 /min Edilberto [employer] 04-05-2017 13:30-0400 Weight 106.6 kg Edilberto [employer] 03-01-2017 12:25-0400 BMI (Body Mass Index) 32.01 kg/m2 Edilberto [employer] 03-01-2017 12:25-0400 Body weight 107.05 kg Ericka [employer] 03-01-2017 12:25-0400 BP Diastolic 80 mm[Hg] Edilberto Zamora [employer] 03-01-2017 12:25-0400 BP Systolic 116 mm[Hg] Edilberto JaraO Entregador 03-01-2017 12:25-0400 BSA (Body Surface Area) 2.33 m2 Edilberto [employer] 03-01-2017 12:25-0400 Height 182.88 cm Edilberto [employer] 03-01-2017 12:25-0400 Pulse (Heart Rate) 84 /min Edilberto Zamora [facility] [employer] 03-01-2017 12:25-0400 Weight 107.05 kg Edilberto JaraO Entregador 02-09-2017 13:42-0400 BMI (Body Mass Index) 32.01 kg/m2 Edilberto [employer] 02-09-2017 13:42-0400 Body weight 107.05 kg Ericka [employer] 02-09-2017 13:42-0400 BP Diastolic 80 mm[Hg] Edilberto Zamora [employer] 02-09-2017 13:42-0400 BP Systolic 130 mm[Hg] Edilberto [employer] 02-09-2017 13:42-0400 BSA (Body Surface Area) 2.33 m2 [employer] 02-09-2017 13:42-0400 Height 182.88 cm Edilberto ZamoraO Entregador 02-09-2017 13:42-0400 Pulse (Heart Rate) 80 /min Edilberto [employer] 02-09-2017 13:42-0400 Weight 107.05 kg Edilberto JaraO Entregador 11-30-2016 13:21-0400 BMI (Body Mass Index) 32.35 kg/m2 Edilberto [employer] 11-30-2016 13:21-0400 Body weight 108.18 kg Ericka Muniz [employer] 11-30-2016 13:21-0400 BP Diastolic 76 mm[Hg] Edilberto [employer] 11-30-2016 13:21-0400 BP Systolic 128 mm[Hg] Edilberto [employer] 11-30-2016 13:21-0400 BSA (Body Surface Area) 2.34 m2 Edilberto [employer] 11-30-2016 13:21-0400 Height 182.88 cm Edilberto [employer] 11-30-2016 13:21-0400 Pulse (Heart Rate) 84 /min Edilberto [employer] 11-30-2016 13:21-0400 Weight 108.18 kg Edilberto [employer] 09-28-2016 11:37-0400 BMI (Body Mass Index) 32.75 kg/m2 Edilberto [employer] 09-28-2016 11:37-0400 Body weight 109.54 kg Ericka Muniz [employer] 09-28-2016 11:37-0400 BP Diastolic 92 mm[Hg] Edilberto [employer] 09-28-2016 11:37-0400 BP Systolic 142 mm[Hg] Edilberto [employer] 09-28-2016 11:37-0400 BSA (Body Surface Area) 2.36 m2 Edilberto [employer] 09-28-2016 11:37-0400 Height 182.88 cm Edilberto Zamora [employer] 09-28-2016 11:37-0400 Pulse (Heart Rate) 100 /min Edilberto [employer] 09-28-2016 11:37-0400 Weight 109.54 kg Edilberto Zamora [employer] 08-03-2016 13:51-0500 BMI (Body Mass Index) 32.96 kg/m2 Edilberto Zamora [employer] 08-03-2016 13:51-0500 Body weight 110.22 kg Ericka [employer] 08-03-2016 13:51-0500 BP Diastolic 96 mm[Hg] Edilberto Zamora [employer] 08-03-2016 13:51-0500 BP Systolic 152 mm[Hg] Edilberto Zamora [employer] 08-03-2016 13:51-0500 BSA (Body Surface Area) 2.37 m2 Edilberto [employer] 08-03-2016 13:51-0500 Height 182.88 cm Edilberto Zamora [employer] 08-03-2016 13:51-0500 Pulse (Heart Rate) 108 /min Edilberto [employer] 08-03-2016 13:51-0500 Weight 110.22 kg Edilberto Fraz[employer]af 03-31-2016 11:23-0400 BMI (Body Mass Index) 32.64 kg/m2 Edilberto Zamora [employer] 03-31-2016 11:23-0400 Body weight 106.14 kg Ericka Muniz [employer] 03-31-2016 11:23-0400 BP Diastolic 76 mm[Hg] Edilberto JaraO Entregador 03-31-2016 11:23-0400 BP Systolic 124 mm[Hg] Edilberto JaraO Entregador 03-31-2016 11:23-0400 BSA (Body Surface Area) 2.31 m2 Edilberto [employer] 03-31-2016 11:23-0400 Height 180.34 cm Edilberto [employer] 03-31-2016 11:23-0400 Pulse (Heart Rate) 80 /min Edilberto Monroe [employer] 03-31-2016 11:23-0400 Weight 106.14 kg Edilberto Zamora [employer] 03-30-2016 13:44-0400 BMI (Body Mass Index) 32.85 kg/m2 Edilberto Zamora [employer] 03-30-2016 13:44-0400 Body weight 106.82 kg Ericka Muniz [employer] 03-30-2016 13:44-0400 BP Diastolic 70 mm[Hg] Edilberto [employer] 03-30-2016 13:44-0400 BP Systolic 136 mm[Hg] Edilberto [employer] 03-30-2016 13:44-0400 BSA (Body Surface Area) 2.31 m2 Edilberto Zamora [employer] 03-30-2016 13:44-0400 Height 180.34 cm Edilberto Zamora [employer] 03-30-2016 13:44-0400 Pulse (Heart Rate) 96 /min Edilberto Monroe [employer] 03-30-2016 13:44-0400 Weight 106.82 kg Edilberto Zamora [employer] 02-23-2016 14:54-0400 BMI (Body Mass Index) 32.71 kg/m2 Edilberto Zamora [employer] 02-23-2016 14:54-0400 Body weight 106.37 kg Ericka [employer] 02-23-2016 14:54-0400 BP Diastolic 90 mm[Hg] Edilberto Zamora [employer] 02-23-2016 14:54-0400 BP Systolic 132 mm[Hg] Edilberto Zamora [employer] 02-23-2016 14:54-0400 BSA (Body Surface Area) 2.31 m2 Edilberto Zamora [employer] 02-23-2016 14:54-0400 Height 180.34 cm Edilberto Zamora [employer] 02-23-2016 14:54-0400 Pulse (Heart Rate) 88 /min Edilberto Monroe [employer] 02-23-2016 14:54-0400 Weight 106.37 kg Edilberto Zamora [employer] 12-23-2015 13:34-0400 BMI (Body Mass Index) 33.89 kg/m2 Edilberto JaraO Entregador 12-23-2015 13:34-0400 Body weight 110.22 kg Ericka Muniz [employer] 12-23-2015 13:34-0400 BP Diastolic 76 mm[Hg] Edilberto JaraO Entregador 12-23-2015 13:34-0400 BP Systolic 110 mm[Hg] Edilberto [employer] 12-23-2015 13:34-0400 BSA (Body Surface Area) 2.35 m2 Edilberto [employer] 12-23-2015 13:34-0400 Height 180.34 cm Edilberto [employer] 12-23-2015 13:34-0400 Pulse (Heart Rate) 100 /min Edilberto [employer] 12-23-2015 13:34-0400 Weight 110.22 kg Edilberto [employer] 12-09-2015 13:00-0400 BMI (Body Mass Index) 33.47 kg/m2 Edilberto [employer] 12-09-2015 13:00-0400 Body weight 108.86 kg Ericka Muniz [employer] 12-09-2015 13:00-0400 BP Diastolic 74 mm[Hg] Edilberto [employer] 12-09-2015 13:00-0400 BP Systolic 114 mm[Hg] Edilberto [employer] 12-09-2015 13:00-0400 BSA (Body Surface Area) 2.34 m2 [employer] 12-09-2015 13:000400 Height 180.34 cm Edilberto Zamora [employer] 12-09-2015 13:00-0400 Pulse (Heart Rate) 100 /min Edilberto [employer] 12-09-2015 13:000400 Weight 108.86 kg Edilberto Zamora [employer] 12-03-2015 12:29-0400 BMI (Body Mass Index) 34.31 kg/m2 Edilberto Zamora [employer] 12-03-2015 12:29-0400 Body weight 111.59 kg Ericka [employer] 12-03-2015 12:29-0400 BP Diastolic 66 mm[Hg] Edilberto Zamora [employer] 12-03-2015 12:29-0400 BP Systolic 114 mm[Hg] Edilberto Zamora [employer] 12-03-2015 12:29-0400 BSA (Body Surface Area) 2.36 m2 Edilberto Zamora [employer] 12-03-2015 12:290400 Height 180.34 cm Edilberto Zamora [employer] 12-03-2015 12:29-0400 Pulse (Heart Rate) 100 /min Edilberto [employer] 12-03-2015 12:29-0400 Weight 111.59 kg Edilberto Zamora [employer] 11-18-2015 13:52-0400 BMI (Body Mass Index) 34.07 kg/m2 Edilberto [employer] 11-18-2015 13:52-0400 Body weight 110.82 kg Ericka Muniz [employer] 11-18-2015 13:52-0400 BP Diastolic 82 mm[Hg] Edilberto [employer] 11-18-2015 13:52-0400 BP Systolic 124 mm[Hg] Edilberto [employer] 11-18-2015 13:52-0400 BSA (Body Surface Area) 2.36 m2 Edilberto [employer] 11-18-2015 13:52-0400 Height 180.34 cm [employer] 11-18-2015 13:52-0400 Pulse (Heart Rate) 100 /min Edilberto [employer] 11-18-2015 13:52-0400 Weight 110.82 kg Edilberto [employer] 11-05-2015 14:53-0400 BMI (Body Mass Index) 34.31 kg/m2 Edilberto [employer] 11-05-2015 14:53-0400 Body weight 111.59 kg Ericka Muniz [employer] 11-05-2015 14:53-0400 BP Diastolic 70 mm[Hg] [employer] 11-05-2015 14:53-0400 BP Systolic 140 mm[Hg] [employer] 11-05-2015 14:53-0400 BSA (Body Surface Area) 2.36 m2 [employer] 11-05-2015 14:53-0400 Height 180.34 cm [facility] 11-05-2015 14:53-0400 Pulse (Heart Rate) 120 /min Edilberto Silveirahard [employer] 11-05-2015 14:53-0400 Weight 111.59 kg dEilberto JaraO Entregador 10-13-2015 13:24-0400 BMI (Body Mass Index) 34.38 kg/m2 Edilberto JaraO Entregador 10-13-2015 13:24-0400 Body weight 111.81 kg Ericka Muniz [employer] 10-13-2015 13:24-0400 BP Diastolic 84 mm[Hg] Edilberto [employer] 10-13-2015 13:24-0400 BP Systolic 144 mm[Hg] Edilberto [employer] 10-13-2015 13:24-0400 BSA (Body Surface Area) 2.37 m2 Edilberto [employer] 10-13-2015 13:24-0400 Height 180.34 cm Edilberto [employer] 10-13-2015 13:24-0400 Pulse (Heart Rate) 108 /min Edilberto [employer] 10-13-2015 13:24-0400 Weight 111.81 kg Edilberto [employer] 10-03-2015 11:47-0400 BMI (Body Mass Index) 34.38 kg/m2 Edilberto [employer] 10-03-2015 11:47-0400 Body weight 111.81 kg Ericka Muniz [employer] 10-03-2015 11:47-0400 BP Diastolic 80 mm[Hg] Edilberto [employer] 10-03-2015 11:47-0400 BP Systolic 106 mm[Hg] Edilberto [facility] [employer] 10-03-2015 11:47-0400 BSA (Body Surface Area) 2.37 m2 Edilberto [email or web address] 10-03-2015 11:47-0400 Height 180.34 cm Edilberto [employer] 10-03-2015 11:47-0400 Pulse (Heart Rate) 116 /min Edilberto [employer] 10-03-2015 11:47-0400 Weight 111.81 kg Edilberto [email or web address] 09-29-2015 12:48-0400 BMI (Body Mass Index) 35.15 kg/m2 Edilberto [employer] 09-29-2015 12:48-0400 Body weight 114.31 kg Ericka [employer] 09-29-2015 12:48-0400 BP Diastolic 68 mm[Hg] Edilberto [employer] 09-29-2015 12:48-0400 BP Systolic 108 mm[Hg] Edilberto [employer] 09-29-2015 12:48-0400 BSA (Body Surface Area) 2.39 m2 Edilberto Zamora [employer] 09-29-2015 12:48-0400 Height 180.34 cm Edilberto Zamora [employer] 09-29-2015 12:48-0400 Pulse (Heart Rate) 76 /min Edilberto [employer] 09-29-2015 12:48-0400 Weight 114.31 kg Edilberto [employer] 08-26-2015 15:06-0500 Pulse Oximetry 97 % Edilberto [employer] 08-26-2015 15:06-0500 SaO2% (BldA) [Mass fraction] 97 % Ericka Muniz [employer] 08-26-2015 14:14-0500 BMI (Body Mass Index) 36.26 kg/m2 Edilberto [employer] 08-26-2015 14:14-0500 Body Temperature 98.1 [degF] Edilberto [employer] 08-26-2015 14:14-0500 Body weight 117.94 kg Ericka Muniz [employer] 08-26-2015 14:14-0500 BP Diastolic 64 mm[Hg] Edilberto [employer] 08-26-2015 14:14-0500 BP Systolic 100 mm[Hg] Edilberto [employer] 08-26-2015 14:14-0500 BSA (Body Surface Area) 2.43 m2 Edilberto [employer] 08-26-2015 14:14-0500 Height 180.34 cm Edilberto [employer] 08-26-2015 14:14-0500 Pulse (Heart Rate) 112 /min [email or web address] 08-26-2015 14:14-0500 Respiratory Rate 20 /min EdilbertoSkritter 08-26-2015 14:14-0500 Weight 117.94 kg [employer] 08-12-2015 13:36-0500 BMI (Body Mass Index) 36.26 kg/m2 Edilberto JaraO Entregador 08-12-2015 13:36-0500 Body weight 117.94 kg Ericka Muniz [facility] 08-12-2015 13:36-0500 BP Diastolic 70 mm[Hg] Edilberto JaraO Entregador 08-12-2015 13:36-0500 BP Systolic 104 mm[Hg] Edilberto [employer] 08-12-2015 13:36-0500 BSA (Body Surface Area) 2.43 m2 Edilberto [employer] 08-12-2015 13:36-0500 Height 180.34 cm Edilberto [employer] 08-12-2015 13:36-0500 Pulse (Heart Rate) 76 /min Edilberto [employer] 08-12-2015 13:36-0500 Weight 117.94 kg Edilberto [employer] 07-24-2015 13:00-0500 BMI (Body Mass Index) 36.4 kg/m2 Edilberto [employer] 07-24-2015 13:00-0500 Body Temperature 97.6 [degF] Edilberto [employer] 07-24-2015 13:00-0500 Body weight 118.39 kg Ericka Muniz [facility] 07-24-2015 13:00-0500 BP Diastolic 80 mm[Hg] Edilberto [employer] 07-24-2015 13:00-0500 BP Systolic 144 mm[Hg] Edilberto Zamora [email or web address] 07-24-2015 13:00-0500 BSA (Body Surface Area) 2.44 m2 Edilberto SilveiraSocialMedia305 07-24-2015 13:00-0500 Height 180.34 cm Edilberto Zamora [employer] 07-24-2015 13:00-0500 Pulse (Heart Rate) 120 /min Edilberto SilveiraFlexenclosure 07-24-2015 13:00-0500 Weight 118.39 kg Edilberto JaraO Entregador 06-03-2015 13:38-0500 BMI (Body Mass Index) 35.98 kg/m2 Edilberto Zamora [employer] 06-03-2015 13:38-0500 Body Temperature 98.8 [degF] Edilberto Zamora [employer] 06-03-2015 13:38-0500 Body weight 117.03 kg Ericka SilveiraSocialMedia305 06-03-2015 13:38-0500 BP Diastolic 90 mm[Hg] Edilberto Zamora [facility] 06-03-2015 13:38-0500 BP Systolic 144 mm[Hg] Edilberto Zamora [employer] 06-03-2015 13:38-0500 BSA (Body Surface Area) 2.42 m2 Edilberto [employer] 06-03-2015 13:38-0500 Height 180.34 cm Edilberto Zamora [employer] 06-03-2015 13:38-0500 Pulse (Heart Rate) 84 /min Edilberto Silve[employer]enclosure 06-03-2015 13:38-0500 Weight 117.03 kg Edilberto Zamora [facility] Encounters Encounter Date Encounter Type Care Provider Facility Start: 12-31-2024 Office outpatient vi sit 25 minutes Cinthia Magana Other [facility] Start: 12-31-2024 Cinthia Lilly m Other [facility] Start: 12-25-2024 Office outpatient vi sit 25 minutes Ericka Muniz Other [facility] Start: 12-25-2024 Ericka Muniz Other [facility] Start: 12-20-2024 End: 12-20-2024 ambulatory Bo Pearce DO Facility:[facility] Start: 08-14-2024 End: 08-14-2024 ambulatory Ericka Muinz MD Work Phone: [facility] Work Phone: Start: 08-14-2024 End: 08-14-2024 Patient encounter procedure Ericka Muniz MD Work Phone: [facility] Work Phone: Start: 07-19-2024 Non-patient / Non-visit Ericka allen MD Work Phone: [facility] Work Phone: Start: 07-19-2024 End: 07-19-2024 Patient encounter procedure Ericka Muniz MD Work Phone: [facility] Work Phone: Start: 07-19-2024 End: 07-19-2024 ambulatory Ericka Muniz MD Work Phone: [facility] Work Phone: Start: 06-21-2024 End: 06-21-2024 ambulatory Ayanna Brooks TOUR AGENT-GLASS TOUGHENING OPERATOR Facility:[facility] Start: 06-12-2024 End: 06-12-2024 ambulatory Ayanna Brooks TOUR AGENT-GLASS TOUGHENING OPERATOR Facility:[facility] Start: 04-26-2024 Office outpatient vi sit 25 minutes Cinthia Magana Other [facility] Start: 03-21-2024 Ericka Muniz Other [facility] Start: 03-21-2024 Office outpatient vi sit 25 minutes Ericka Muniz Other [facility] Start: 01-11-2024 End: 01-11-2024 ambulatory Ayanna Brooks TOUR AGENT-GLASS TOUGHENING OPERATOR Facility:[facility] Start: 12-14-2023 End: 12-14-2023 Emergency department patient visit RADHA Camposmond Work Phone: [facility] Work Phone: Start: 12-03-2023 End: 12-03-2023 Emergency department patient visit TOUR AGENT Mark Alexsandra Work Phone: [facility] Work Phone: Start: 11-14-2023 End: 11-14-2023 Office outpatient visit 25 minutes Ericka Muniz Other [facility] Start: 11-14-2023 Ericka Muniz Other [facility] Start: 11-14-2023 Foot examination performed Ericka Muniz [facility] Start: 08-09-2023 Telephone encounter Shay lal DO Work Phone: [facility] Start: 06-16-2023 End: 06-18-2023 Pre-admission assessment NAYLA OAKES [facility] Start: 01-25-2023 Office outpatient vi sit 15 minutes Ericka Muniz Other [facility] Start: 01-25-2023 Edilberto schmitt Other [facility] Start: 01-25-2023 Foot examination performed Ericka Muniz [facility] Start: 01-25-2023 Office outpatient vi sit 25 minutes Edilberto Zamora Other [facility] Start: 10-27-2022 ambulatory NAYLA OAKES Faci lity:H1 Start: 07-28-2022 End: 07-29-2022 ambulatory NAYLA Ontiveros [facility] Facility:H1 Start: 07-27-2022 Lab Edilberto Jaimes keshia Other [facility] Start: 07-27-2022 Edilberto Jaimes keshia Other [facility] Start: 07-27-2022 Office Services Ericka Muniz Other [facility] Start: 07-27-2022 Foot examination performed Edilberto Zamora [facility] Start: 07-27-2022 End: 07-27-2022 Office outpatient visit 25 minutes Edilberto Zamora Other [facility] [employer] [facility] Office Start: 06-23-2022 End: 06-24-2022 ambulatory NAYLA Ontiveros [facility] Facility:H1 Start: 05-27-2022 End: 05-27-2022 ambulatory NON STAFF [facility] Work Phone: Start: 05-27-2022 End: 05-27-2022 Discharged Recurring [facility] [place] Start: 05-26-2022 End: 05-26-2022 ambulatory NON STAFF [facility] Work Phone: Start: 05-26-2022 End: 05-26-2022 Patient encounter procedure [facility] [address] Start: 05-05-2022 Registered Recurring [facility] Start: 04-22-2022 End: 04-22-2022 ambulatory NON STAFF [facility] Work Phone: Start: 04-22-2022 End: 04-22-2022 Patient encounter procedure [facility] [place] Start: 04-21-2022 End: 04-21-2022 ambulatory NON STAFF [facility] Work Phone: Start: 04-21-2022 End: 04-21-2022 Patient encounter procedure [facility] [place] Start: 04-14-2022 Registered Recurring Fi [facility] Start: 04-01-2022 End: 04-01-2022 Emergency department patient visit [facility] Start: 04-01-2022 Office outpatient ne w 20 minutes Franky P Dyana Other [facility] Start: 04-01-2022 Office outpatient vi sit 15 minutes Franky P Dyana Other [facility] Start: 03-16-2022 Office outpatient vi sit 15 minutes Franky P Dyana Other [facility] Start: 02-17-2022 Office outpatient vi sit 15 minutes Franky P Dyana Other [facility] Start: 02-17-2022 Lab Ericka Muniz Other [facility] Start: 02-17-2022 Ericka Muniz Other [facility] Start: 02-17-2022 Office outpatient vi sit 15 minutes Ericka Muniz Other [facility] Start: 01-15-2022 Lab Edilberto Jaimes keshia Other [facility] Start: 01-15-2022 Edilberto Jaimes keshia Other [facility] Start: 01-15-2022 Office outpatient vi sit 15 minutes Franky P Dyana Other [facility] Start: 01-15-2022 Foot examination performed Edilberto Zamora [facility] Start: 01-15-2022 Office outpatient vi sit 25 minutes Edilberto Zamora Other [facility] Start: 10-20-2021 Office outpatient vi sit 25 minutes Franky P Dyana Other [facility] Office Start: 09-17-2021 Office outpatient ne w 45 minutes Franky Yu Dyana Other [facility] Office Start: 09-17-2021 Office Services Franky Yu September and Other [facility] Office Start: 09-03-2021 Office outpatient vi sit 25 minutes Ericka Muniz Other [facility] Office Start: 09-03-2021 Foot examination performed [facility] Start: 09-03-2021 Office outpatient vi sit 25 minutes Edilberto L Zamora Other [facility] Office Start: 08-18-2021 Lab Edilberto L Schroe keshia Other [facility] Office Start: 08-18-2021 Medicare Lab Edilberto L Schroe keshia Other [facility] Start: 08-18-2021 Edilberto L Schroe keshia Other [facility] Office Start: 03-19-2021 Medicare Lab Edilberto L Schroe keshia Other [facility] Start: 03-19-2021 Edilberto L Schroe ekshia Other [facility] Start: 03-19-2021 Foot examination performed [facility] Start: 03-19-2021 Office outpatient vi sit 25 minutes Edilberto L Zamora Other [facility] Office Start: 12-23-2020 Lab Ericka Muniz Other [facility] Office Start: 12-23-2020 Ericka Muniz Other [facility] Office Start: 12-23-2020 Office outpatient vi sit 25 minutes Ericka Muniz Other [facility] Office Start: 10-20-2020 Encounter for genera l adult medical examination without abnormal findings Ericka Muniz [facility] Start: 09-09-2020 Foot exam performed Edilberto Zamora [employer] Start: 09-09-2020 Office outpatient vi sit 25 minutes Edilbertogavi Zamora Other [facility] Start: 09-09-2020 Medicare Lab Edilberto Jaimes keshia Other [facility] Start: 09-09-2020 Edilberto L Mareksia keshia Other [facility] Start: 08-05-2020 Office outpatient vi sit 15 minutes Ericka Muniz Other [facility] Start: 06-12-2020 Office outpatient vi sit 15 minutes Ericka Muniz Other [facility] Start: 06-04-2020 Office outpatient vi sit 15 minutes Ericka Muniz Other [facility] Start: 04-08-2020 Medicare Lab Edilberto Jaimes keshia Other [facility] Start: 04-08-2020 Edilberto Lawrence Mareksia keshia Other [facility] Start: 04-08-2020 Foot exam performed Edilberto Zamora [facility] Start: 04-08-2020 Office outpatient vi sit 25 minutes Edilberto L Zamora Other [facility] Start: 03-25-2020 End: 03-28-2020 Patient encounter procedure [facility]ON [facility] Start: 03-25-2020 End: 03-27-2020 Subsequent hospital visit by physician [facility] Mri Scanner [facility] MRI Comment on above: Right knee pain, uns pecified chronicity Start: 02-21-2020 Office outpatient vi sit 15 minutes Ericka Muniz Other [facility] Start: 02-12-2020 End: 02-15-2020 Patient encounter procedure ERICKA MUNIZ [facility] Start: 02-12-2020 End: 02-14-2020 Subsequent hospital visit by physician 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 Lab Drawing Room [facility] Laboratory Comment on above: Arrived Start: 12-24-2019 End: 12-25-2019 Patient encounter procedure [facility] Start: 12-24-2019 End: 12-28-2019 Subsequent hospital visit by physician [facility] Covid19 Pat Screening Schedule [facility] EKG Start: 12-20-2019 Lab Edilbertogavi Jaimes keshia Other [facility] Office Start: 12-20-2019 Edilbertogavi Jarae keshia Other [facility] Office Start: 11-26-2019 Office outpatient vi sit 15 minutes Ericka Muniz Other [facility] Start: 11-26-2019 Office outpatient vi sit 25 minutes Ericka Muniz Other [facility] Start: 11-19-2019 Lab Ericka Muniz Other [facility] Start: 11-19-2019 Ericka Muniz Other [facility] Start: 08-28-2019 Foot exam performed Edilberto Zamora [email or web address] Start: 08-28-2019 Office outpatient vi sit 25 minutes Edilberto Zamora Other [facility] Start: 08-21-2019 Lab Edilberto Jaimes keshia Other [facility] Start: 08-21-2019 Edilberto Jaimes keshia Other [facility] Start: 05-28-2019 Encounter for genera l adult medical examination without abnormal findings Edilberto ZamoraO Entregador Start: 05-28-2019 Routine general medi trent examination at a health care facility Ericka Muniz [facility] Start: 05-28-2019 Periodic preventive med est patient 40-64yrs Ericka Muniz Other [facility] Start: 05-22-2019 Lab Ericka Muniz Other [facility] Start: 05-22-2019 Ericka Muniz Other [facility] Start: 04-17-2019 Foot exam performed Edilberto [employer] Start: 04-17-2019 Office outpatient vi sit 25 minutes Edilberto Zamora Other [facility] Start: 04-12-2019 Follow-up visit Ayden [employer] Start: 04-12-2019 Office outpatient vi sit 5 minutes Ayden [employer] Start: 04-12-2019 Postoperative follow -up visit Edilberto [employer] Start: 04-12-2019 Procedure Ayden bowden Other [facility] [...] medical examination without abnormal findings Edilberto Zamora [employer] Start: 01-25-2019 Routine general medi trent examination at a health care facility Ericka Muniz [facility] Start: 01-25-2019 Office outpatient vi sit 15 minutes Ericka Muniz Other [facility] Office Start: 01-02-2019 Office Services Natty schneider Other [facility] Office Start: 01-02-2019 Natty ureña Other [facility] Office Start: 12-12-2018 Foot exam performed Edilberto Zamora [facility] Start: 12-12-2018 Office outpatient vi sit 25 minutes Edilberto Zamora Other [facility] Office Start: 12-08-2018 Lab Edilberto schmitt Other [facility] Office Start: 12-08-2018 Edilbertogavi Jarae keshia Other [facility] Office Start: 11-09-2018 Patient encounter procedure LENKA ROQUE [facility] Start: 10-12-2018 Procedure Sasha Morris Other [facility] Start: 10-12-2018 Sasha Morris Other [facility] Start: 10-02-2018 Foot exam performed Edilberto delgado Other [facility] Office Start: 10-02-2018 Office outpatient vi sit 25 minutes Edilberto Zamora Other [facility] Start: 09-26-2018 Office Services Edilbertogavi Jaimes keshia Other [facility] Office Start: 09-26-2018 Edilbertogavi Jaimes keshia Other [facility] Office Start: 08-30-2018 Encounter for genera l adult medical examination without abnormal findings Edilbertogavi JaraZamoraO Entregador Start: 08-30-2018 Routine general medi trent examination at a health care facility Edilberto Zamora [email or web address] Start: 08-30-2018 Office outpatient vi sit 25 minutes Ericka Muniz Other [facility] Office Start: 08-23-2018 Lab Ericka Muniz Other [facility] Office Start: 08-23-2018 Ericka Muniz Other [facility] Office Start: 07-27-2018 Office Services Edilberto L Mareke keshia Other [facility] Office Start: 07-27-2018 Edilberto L Mareke keshia Other [facility] Office Start: 06-21-2018 Procedure Pedro pitts Other [facility] Start: 06-21-2018 Pedro pitts Other [facility] Start: 06-19-2018 Foot exam performed Edilberto L Sc hroeder Other [facility] Office Start: 06-19-2018 Office outpatient vi sit 25 minutes Edilberto L Zamora Other [facility] Start: 06-12-2018 Lab Edilberto L Mareke keshia Other [facility] Office Start: 06-12-2018 Edilberto L Mareke keshia Other [facility] Office Start: 04-20-2018 Walk-In Ericka Muniz Other [facility] Office Start: 04-20-2018 End: 04-20-2018 Ericka Muniz Other [facility] Office Start: 04-20-2018 Office Services Natty schneider Other [facility] Office Start: 03-20-2018 Foot exam performed Edilberto L Sc hroeder Other [facility] Office Start: 03-20-2018 Office outpatient vi sit 25 minutes Edilberto L Zamora Other [facility] Start: 03-08-2018 Lab Edilberto L Mareksia keshia [...] vi sit 25 minutes Edilberto Zamora Other [facility] Start: 12-09-2017 Office Services Ericka Muniz Other [facility] Start: 12-09-2017 Ericka Muniz Other [facility] Start: 11-25-2017 Lab Edilberto Lawrence Mareke keshia Other [facility] Start: 11-25-2017 Edilberto L Mareke keshia Other [facility] Start: 09-08-2017 Office Services Edilberto Melinda Jaimes keshia Other [facility] Start: 09-08-2017 Edilberto L Mareke kehsia Other [facility] Start: 09-01-2017 Office outpatient vi sit 25 minutes Ericka Muniz Other [facility] Start: 08-24-2017 Lab Ericka Muniz Other [facility] Start: 08-24-2017 Ericka Muniz Other [facility] Start: 08-09-2017 Office Services Natty schneider Other [facility] Office Start: 08-09-2017 Natty ureña Other [facility] Office Start: 08-05-2017 Foot exam performed Edilberto Zamora [facility] Start: 08-05-2017 Office outpatient vi sit 25 minutes Edilberto L Zamora Other [facility] Office Start: 08-01-2017 Lab Edilberto L Schroe keshia Other [facility] Office Start: 08-01-2017 Edilberto L Mareke keshia Other [facility] Office Start: 06-27-2017 Office outpatient vi sit 15 minutes Ericka Muniz Other [facility] Office Start: 04-05-2017 Foot exam performed Edilbertogavi Thomas hroeder Other [facility] Office Start: 04-05-2017 Office outpatient vi sit 25 minutes Edilberto L Zamora Other [facility] Start: 03-29-2017 Lab Edilberto L Mareke keshia Other [facility] Office Start: 03-29-2017 Edilberto Melinda Jarae keshia Other [facility] Office Start: 03-01-2017 Office outpatient vi sit 25 minutes Ericka Muniz Other [facility] Office Start: 02-17-2017 End: 02-17-2017 Split Srvc Ericka Muniz Other [facility] Office Start: 02-17-2017 End: 02-17-2017 Ericka Muniz Other [facility] Office Start: 02-09-2017 Office outpatient vi sit 25 minutes Ericka Muniz Other [facility] Office Start: 11-30-2016 Foot exam performed Edilberto L Sc hroeder Other [facility] Office Start: 11-30-2016 Office outpatient vi sit 25 minutes Edilberto L Zamora Other [facility] Start: 11-23-2016 Lab Edilberto L Schroe keshia Other [facility] Start: 11-23-2016 Edilberto L Schroe keshia Other [facility] Office Start: 09-28-2016 Office outpatient vi sit 25 minutes Ericka Muniz Other [facility] Office Start: 09-21-2016 Lab Ericka Muniz Other [facility] Office Start: 09-21-2016 Ericka Muniz Other [facility] Office Start: 08-13-2016 Split Srvc Sasha Morris Other [facility] Office Start: 08-13-2016 Sasha Morris Other [facility] Office Start: 08-03-2016 Foot exam performed Edilberto L Sc hroeder Other [facility] Office Start: 08-03-2016 Office outpatient vi sit 25 minutes Edilberto L Zamora Other [facility] Start: 07-27-2016 Lab Edilberto L Schroe keshia Other [facility] Office Start: 07-27-2016 Edilberto L Schroe keshia Other [facility] Office Start: 03-31-2016 Office outpatient vi sit 25 minutes Ericka Muniz Other [facility] Office Start: 03-30-2016 Foot exam performed Edilberto L Sc hroeder Other [facility] Office Start: 03-30-2016 Office outpatient vi sit 25 minutes Edilberto L Zamora Other [facility] Start: 03-04-2016 Lab Edilberto L Schroe keshia Other [facility] Office Start: 03-04-2016 Edilberto L Schroe keshia Other [facility] Office Start: 02-23-2016 Office outpatient vi sit 15 minutes Ericka Muniz Other [facility] Office Start: 12-23-2015 Office outpatient vi sit 15 minutes Ericka Muniz Other [facility] Office Start: 12-09-2015 Office outpatient vi sit 15 minutes Ericka Muniz Other [facility] Office Start: 12-03-2015 Office outpatient vi sit 15 minutes Edilberto Zamora Other [facility] Office Start: 11-26-2015 Lab Edilberto L Mareke keshia Other [facility] Office Start: 11-26-2015 Edilberto L Mareke keshia Other [facility] Office Start: 11-18-2015 Office outpatient vi sit 25 minutes Ericka Muniz Other [facility] Office Start: 11-07-2015 Lab Edilberto Lawrence Mareke keshia Other [facility] Office Start: 11-07-2015 Edilberto L Mareke keshia Other [facility] Office Start: 11-05-2015 Foot exam performed Edilberto delgado Other [facility] Office Start: 11-05-2015 Office outpatient vi sit 25 minutes Edilberto Melinda JaraZamora Other [facility] Start: 10-29-2015 Lab Edilberto Jaimes keshia Other [facility] Office Start: 10-29-2015 Edilberto Lawrence Mareksia keshia Other [facility] Office Start: 10-13-2015 Office outpatient vi sit 15 minutes Ericka Muniz Other [facility] Office Start: 10-03-2015 Foot exam performed Edilberto Zamora [facility] Start: 10-03-2015 Office consultation new/estab patient 80 min Edilberto Zamora Other [facility] Office Start: 10-02-2015 Office Services Ericka Muniz Other [facility] Office Start: 10-02-2015 Ericka Muniz Other [facility] Office Start: 09-29-2015 Office outpatient vi sit 25 minutes Ericka Muniz Other [facility] Start: 09-24-2015 Procedure Jesus Del Cid Other [facility] Start: 09-24-2015 Jesus Del Cid Other [facility] Start: 08-26-2015 Office consultation new/estab patient 60 min Jesus Del Cid Other [facility] Start: 08-12-2015 Office Services Ericka Muniz Other [facility] Start: 08-12-2015 Ericka Muniz Other [facility] Start: 08-06-2015 Split Srvc Ericka Muniz Other [facility] Start: 08-06-2015 Ericka Muniz Other [facility] Start: 08-05-2015 Lab Ericka Muniz Other [facility] Start: 08-05-2015 End: 08-05-2015 Ericka Muniz Other [facility] Start: 08-05-2015 End: 08-05-2015 Split Srvc Ericka Muniz Other [facility] Start: 07-24-2015 Office outpatient vi sit 15 minutes Lindsay Kimball Other [facility] Office Start: 06-03-2015 Office outpatient ne w 45 minutes Ericka Muniz Other [facility] Office Procedures Date Procedure [...] joints, with or without interface material, prefabricated, [id number] Ericka Muniz Start: 03-16-2022 X-ray of left [...] Ericka Muniz Start: 09-18-2021 Procedure on skin Ercika Muniz Start: 09-17-2021 Dup-scan lxtr art/artl bpgs [...] verified w/pt or re Edilberto torres Start: 09-09-2020 Documentation of current medications [...] Muniz Start: 04-13-2019 Assay of glutamyltrase gamma Ayden [...] Start: 09-01-2018 Hemoglobin glycosylated a1c Edilberto Theodore scmhitt Start: 09-01-2018 Lipid panel Edilberto Zamora Start: [...] amino ast sgot Edilberto Zamora Start: 08-25-2017 Eircka Munzi Start: 08-09-2017 Diab manage trn per indiv [...] Ericka Muniz Start: 04-02-2017 Glucose measurement, quantitative Eircka F ox Start: 04-02-2017 Glucose quantitative blood [...] Edilberto Sera Start: 09-21-2016 Hemoglobin A1c measurement Erikca Muniz Start: 09-21-2016 Hemoglobin glycosylated a1c Edilberto [...] of prostate specific antigen total PSA total [email or web address] Start: 06-26-2025 Assay of testosteron e free Total and free testosterone panel by equilibrium dialysis [place] [facility] Start: 06-26-2025 Assay of testosteron e total Total and free testosterone panel by equilibrium dialysis [place] [employer] Start: 06-26-2025 Comprehensive metabo lic panel CMP [place] [employer] [facility] Start: 06-26-2025 Hemoglobin glycosyla ramses a1c Hgb A1c [place] [employer] [facility] Start: 06-26-2025 Lipid panel Lipid panel [facility] Start: 12-25-2024 Comprehensive metabo lic panel CMP [place] [employer] [facility] Start: 12-25-2024 Hemoglobin glycosyla ramses a1c Hgb A1c [place] [employer] [facility] Start: 12-25-2024 Lipid panel Lipid panel [facility] Start: 09-18-2024 Comprehensive metabo lic panel Comp [facility] Start: 09-18-2024 Hemoglobin glycosyla ramses a1c A1c [place] [employer] [facility] Start: 09-18-2024 Lipid panel Lipid panel [facility] Start: 03-16-2024 Assay of thyroid stimulating hormone tsh TSH [place] [employer] [facility] Start: 03-16-2024 Comprehensive metabo lic panel [facility] Start: 03-16-2024 Cyanocobalamin vitam in b-12 B12 level [facility] Start: 03-16-2024 Hemoglobin glycosyla ramses a1c [facility] Start: 03-16-2024 Lipid panel Lipid profile [facility] Start: 11-14-2023 Hemoglobin glycosyla ramses a1c A1c [facility] Start: 2023 Assay of prostate specific antigen total PSA total [facility] Start: 2023 Blood count complete automated CBC PLATELET COUNT; AUTOMATED [facility] Start: 2023 Comprehensive metabo lic panel CMP [facility] Start: 2023 Lipid panel Lipid panel [facility] Start: 07-28-2023 Comprehensive metabo lic panel CMP (comprehensive metabolic panel) [facility] Start: 07-28-2023 Hemoglobin glycosyla ramses a1c HEMOGLOBIN A1C [facility] Start: 07-28-2023 Lipid panel Lipid profile [facility] Start: 03-11-2023 Influenza vaccination Influenza Vacc ine (#1) [facility] Start: 01-25-2023 Assay of prostate specific antigen total PSA, total [facility] Start: 01-25-2023 Blood count complete automated CBC PLATELET COUNT; AUTOMATED [facility] Start: 01-25-2023 Comprehensive metabo lic panel CMP [facility] Start: 01-24-2023 Glucose quantitative blood xcpt reagent strip GLUCOSE [facility] Start: 01-24-2023 Hemoglobin glycosyla ramses a1c HEMOGLOBIN A1C [facility] Start: 01-24-2023 Lipid panel Lipid profile [facility] Start: 01-24-2023 Transferase alanine amino alt sgpt SGPT (ALT) [facility] Start: 07-21-2022 25 hydroxy includes fractions if performed VITAMIN D 25-HYDROXY [place] [facility] Start: 07-21-2022 Assay of parathormone PTH-INTACT B [facility] Start: 07-21-2022 Comprehensive metabo lic panel CMP (comprehensive metabolic panel) [facility] Start: 07-21-2022 Hemoglobin glycosyla ramses a1c HEMOGLOBIN A1C [place] [employer] [facility] Start: 07-19-2022 Lipid panel Lipid panel [place] [employer] Start: 05-04-2022 X-ray of left ankle ANKLE COMP LETE X-RAY 3 VIEWS [place] [employer] Start: 04-22-2022 MR Foot - right WO a nd W contrast IV [facility] Start: 04-22-2022 MRI of right foot wi th contrast MR foot RT wo/w con [facility] Start: 04-21-2022 MR Ankle - right WO and W contrast IV [facility] Start: 04-21-2022 MRI of right ankle w ith contrast MR ankle RT wo/w [facility] Start: 04-05-2022 Assay of lactate Lactic acid serum B [facility] [place][note 2][facility] Start: 04-05-2022 Blood count complete auto&auto difrntl wbc CBC w diff [place] [employer] Start: 04-05-2022 C-reactive protein CRP [facility] [employer] [facility] Start: 04-05-2022 Comprehensive metabo lic panel CMP [email or web address] Start: 04-05-2022 MRI of lower extremity MRI ankle and foot [place] [employer] Start: 04-05-2022 Sedimentation rate r bc non-automated ESR non-auto [facility] Start: 04-01-2022 Duplex scan of lower limb veins US venous duplex LE RT [facility] Start: 04-01-2022 US Lower extremity v ein - right [facility] Work Phone: Start: 03-16-2022 X-ray of left ankle ANKLE COMP LETE X-RAY 3 VIEWS [facility] Start: 03-16-2022 X-ray of left foot FOOT COMPLE TE X-RAY 3 VIEWS [facility] Start: 02-17-2022 Assay of prostate specific antigen total PSA total [facility] Start: 02-17-2022 Comprehensive metabo lic panel Comp [facility] Start: 02-17-2022 Hemoglobin glycosyla ramses a1c A1c [facility] Start: 02-17-2022 Lipid panel Lipid panel [facility] Start: 01-01-2022 Assay of glutamyltra se gamma GAMMA GT [facility] Start: 01-01-2022 Blood count complete automated CBC PLATELET COUNT; AUTOMATED [facility] Start: 01-01-2022 Comprehensive metabo lic panel CMP (comprehensive metabolic panel) [facility] Start: 01-01-2022 Hemoglobin glycosyla ramses a1c HEMOGLOBIN A1C [facility] Start: 09-17-2021 Cul bact xcpt urine blood/stool aerobic isol Wound culture and sensitivity [facility] Start: 09-17-2021 Dup-scan lxtr art/ar tl bpgs uni/lmtd study MARGA w/ segmental pressures and waveforms [facility] Start: 09-17-2021 Non-invas physiologi c std extremity art 2 level MARGA w/ segmental pressures and waveforms [facility] Start: 09-17-2021 Non-invasive physiol ogic study extremity 3 levls MARGA w/ segmental pressures and waveforms [facility] Start: 09-17-2021 Plain X-ray of toe TOES X-RAY 2-3 EWS [facility] Start: 08-18-2021 Blood count complete automated CBC & PLATELET COUNT; AUTOMATED [facility] Start: 08-18-2021 Comprehensive metabo lic panel CMP (comprehensive metabolic panel) [facility] Start: 08-18-2021 Hemoglobin glycosyla ramses a1c A1c [facility] Start: 08-18-2021 Lipid panel LIPID PROFILE [facility] Start: 07-19-2021 Assay of glutamyltra se gamma GAMMA GT [email or web address] Start: 07-19-2021 Basic metabolic pane l calcium total Chem 8 [facility] Start: 07-19-2021 Hemoglobin glycosyla ramses a1c HEMOGLOBIN A1C [facility] Start: 06-24-2021 Blood count complete automated CBC PLATELET COUNT; AUTOMATED [facility] Start: 06-24-2021 Comprehensive metabo lic panel Comp [facility] Start: 06-24-2021 Hemoglobin glycosyla ramses a1c A1c [facility] Start: 06-24-2021 Lipid panel Lipid panel [facility] Start: 03-12-2021 Assay of parathormone PTH-INTACT B [facility] [place]note 2][facility] Start: 03-12-2021 Assay of phosphorus inorganic Phosphorus, serum [email or web address] Start: 03-12-2021 Blood count complete automated CBC PLATELET COUNT; AUTOMATED [email or web address] Start: 03-12-2021 Comprehensive metabo lic panel CMP (comprehensive metabolic panel) [email or web address] Start: 03-12-2021 HbA1c (Bld) [Mass fraction] HEMOGLOBIN A1C [email or web address] Start: 03-12-2021 Hemoglobin glycosyla ramses a1c HEMOGLOBIN A1C [email or web address] Start: 12-25-2020 Creatinine measurement Creatinine mo [place]itoring [place] Start: 12-25-2020 Potassium monitoring Potassium monit [place]ing [place] Start: 12-23-2020 Assay of prostate specific antigen total PSA total [facility] Start: 08-08-2020 Comprehensive metabo lic panel CMP (comprehensive metabolic panel) [email or web address] Start: 08-08-2020 HbA1c (Bld) [Mass fraction] HEMOGLOBIN A1C [email or web address] Start: 03-28-2020 Glucose quantitative blood xcpt reagent strip GLUCOSE 2 HR Post Prandial [facility] Start: 03-28-2020 HbA1c (Bld) [Mass fraction] HEMOGLOBIN A1C [email or web address] Start: 03-28-2020 Hepatic function panel LFT (li rosanne function test) [facility] Start: 03-24-2020 Annual Wellness Visi t (AWV) Annual Wellness Visit (AWV) [place] Start: 03-11-2020 Influenza vaccination [place] Start: 12-28-2019 End: 12-28-2019 Hospital Encounter [facility] Comment on above: SHOULDER ARTHROSCOPY ROTATOR CUFF REPAIR, POSSIBLE BICEPS TENDONDESIS Start: 12-28-2019 End: 12-28-2019 Hospital Encounter [facility] Comment on above: SHOULDER ARTHROSCOPY ROTATOR CUFF REPAIR, POSSIBLE BICEPS TENDONDESIS Start: 12-27-2019 Basic metabolic pane l calcium total Chem 8 [facility] Start: 12-27-2019 HbA1c (Bld) [Mass fraction] HEMOGLOBIN A1C [facility] Start: 11-27-2019 Comprehensive metabo lic panel Comp [facility] Start: 11-27-2019 HbA1c (Bld) [Mass fraction] A1c [facility] Start: 11-27-2019 Lipid panel Lipid panel [facility] Start: 08-28-2019 Basic metabolic pane l calcium total Chem 8 [facility] Start: 08-18-2019 Basic metabolic pane l calcium total Chem 8 [facility] Start: 08-18-2019 Gamma glutamyl transferase [Catalytic activity/Vol] GGT [facility] Start: 08-18-2019 HbA1c (Bld) [Mass fraction] HEMOGLOBIN A1C [facility] Start: 05-22-2019 Assay of prostate specific antigen total PSA total [facility] Start: 05-22-2019 Blood count complete automated CBC & PLATELET COUNT; AUTOMATED [facility] Start: 05-22-2019 Comprehensive metabo lic panel Comprehensive metabolic panel [facility] Start: 05-22-2019 Lipid panel Lipid panel [facility] Start: 05-22-2019 Urnls dip stick/tabl et rgnt auto w/o microscopy Urinalysis auto [email or web address] Start: 04-17-2019 Im adm prq id subq/i m njxs 1 vaccine Administration of single vaccine [place] [facility] Start: 04-13-2019 Assay of glutamyltra se gamma GAMMA GT [place] [facility] Start: 04-13-2019 Comprehensive metabo lic panel CMP (comprehensive metabolic panel) [place] [facility] Start: 04-13-2019 Hemoglobin A1c/Hemoglobin.total mass fraction (Bld) HEMOGLOBIN A1C [place] [facility] Start: 02-27-2019 Assay of prostate specific antigen total PSA total [place] [facility] Start: 02-27-2019 Blood count complete automated CBC & PLATELET COUNT; AUTOMATED [place] [facility] Start: 02-27-2019 Comprehensive metabo lic panel Comprehensive metabolic panel [place] [facility] Start: 02-27-2019 Hemoglobin A1c/Hemoglobin.total mass fraction (Bld) Hgb A1c [place] [facility] Start: 02-27-2019 Lipid panel Lipid panel [place] [facility] Start: 01-02-2019 Medical nutrition re-assmt&ivntj indiv ea 15 m Medical nutrition therapy; re-assessment and intervention, individual, izge-cb-glwe with the patient, each 15 minutes [email or web address] Start: 09-26-2018 Medical nutrition re-assmt&ivntj indiv ea 15 m Medical nutrition therapy; re-assessment and intervention, individual, ohew-ai-wika with the patient, each 15 minutes [email or web address] Start: 09-17-2018 Glucose mass conc GLUCOSE [facility] Start: 09-17-2018 Hemoglobin A1c/Hemoglobin.total mass fraction (Bld) HEMOGLOBIN A1C [email or web address] Start: 09-17-2018 Hepatic function panel Liver functio n panel [email or web address] Start: 07-27-2018 Medical nutrition re-assmt&ivntj indiv ea 15 m Medical nutrition therapy; re-assessment and intervention, individual, lxnz-ob-kibb with the patient, each 15 minutes [facility] Start: 04-20-2018 Medical nutrition re-assmt&ivntj indiv ea 15 m Medical nutrition therapy; re-assessment and intervention, individual, ymqh-ed-hiws with the patient, each 15 minutes [email or web address] Start: 03-15-2018 Glucose mass conc GLUCOSE [facility] Start: 03-15-2018 Hemoglobin A1c/Hemoglobin.total mass fraction (Bld) HEMOGLOBIN A1C [email or web address] Start: 01-18-2018 Medical nutrition re-assmt&ivntj indiv ea 15 m Medical nutrition therapy; re-assessment and intervention, individual, pgbv-ae-zqnq with the patient, each 15 minutes [facility] Start: 12-13-2017 Hepatic function panel Liver functio n panel [email or web address] Start: 2014 Screening for malign ant neoplasm of colon Colon cancer screen colonoscopy [place], [place] Start: 2014 Shingles Vaccine (1 of 2) Shingles Vaccine (1 of 2) [place] Start: 2004 Diabetes screen Diabetes screen [place], [place] Start: 11-11-1983 DTaP/Tdap/Td vaccine (1 - Tdap) DTaP/Tdap/Td vaccine (1 - Tdap) [place] Start: 11-11-1983 Urine screening for protein Diabetes: Urine Protein Screening [facility] Start: 11-11-1979 HIV screening HIV screen [place] Start: 1974 Glaucoma screening Diabetes: R etinopathy Screening [facility] Start: 1974 Lipid panel Lipid screen [place], [place] Start: 1970 Pneumococcal 0-64 ye ars Vaccine (1 of 1 - PPSV23) Pneumococcal 0-64 years Vaccine (1 of 1 - PPSV23) [place] Start: 1964 Creatinine measurement Creatinine mo [place]itoring [place] Start: 1964 Hemoglobin A1c measurement Diabetes: Hemoglobin A1C [facility] Start: 1964 Hepatitis C screening Hepatitis C sc reen [place] Start: 1964 Medicare Annual Well ness (AWV) Medicare Annual Wellness (AWV) [facility] Start: 1964 Potassium monitoring Potassium monit [place], [place] Start: 1964 Screening for malign ant neoplasm of colon [facility] Initiate Oxygen Ther apy Protocol Initiate Oxygen Therapy Protocol Respiratory Care Routine Daily until discontinued starting 12/28/2019 [place] Comment on above: Daily until disconti nued starting 12/28/2019 Patient Education [facility] Work Phone: Patient referral [facility] Work Phone: Phase I & II - meter ed glucose Phase I & II - metered glucose Point of Care Testing Routine As Needed until discontinued starting 12/28/2019 [place] Comment on above: As Needed until disc ontinued starting 12/28/2019 SNORING AND OBESITY Blanquita [employer]iveros [employer] Immunizations Immunization Date Immunization Notes Care Provider Milla wolf 05-08-2024 COVID-19, Moderna, 100mcg/0.5ml Cinthia [email or web address] 05-08-2024 hepatitis A and hepatitis B vaccine Cinthia [email or web address] 05-08-2024 measles, mumps and rubella virus vaccine Cinthia [employer] [facility] 05-08-2024 Seasonal trivalent influenza vaccine, adjuvanted, preservative free Cinthia Magana [facility] 08-05-2023 COVID-19, Moderna, 100mcg/0.5ml Ericka Muniz [facility] 08-05-2023 PCV20 Ericka Muniz [facility] 04-28-2022 COVID-19, Pfizer, 30mcg/0.3ml [facility] 04-28-2022 influenza, injectabl e, quadrivalent, contains preservative [facility] 04-28-2022 influenza virus vaccine, unspecified formulation Shay Patterson DO Work Phone: [facility] 12-05-2021 hepatitis A and hepatitis B vaccine Franky [facility] 10-19-2021 hepatitis B vaccine, adult dosage Franky [facility] [employer] [facility] 10-19-2021 zoster vaccine, live Franky [facility] 06-15-2021 COVID-19, Moderna, [facility] 10-14-2020 COVID-19, Moderna, 100mcg/0.5ml Edilberto [facility] 09-12-2020 COVID-19, Moderna, 100mcg/0.5ml Edilberto [facility] 04-08-2020 influenza virus vaccine, unspecified formulation; Translations: [Administration of influenza virus vaccine] [facility] 04-08-2020 influenza, high dose seasonal, preservative-free; Translations: [FLU VACC PRSV FREE INC ANTIG] [facility] 04-17-2019 influenza, injectabl e, quadrivalent, contains preservative; Translations: [FLU VACC 4 FRANCISCO 3 YRS PLUS IM] [facility] 04-17-2019 influenza, seasonal, injectable [facility] 04-17-2019 IMMUNIZATION ADMIN; Translations: [IMMUNIZATION ADMIN] [facility] 04-17-2019 Ericka Muniz [facility] 04-20-2018 influenza, seasonal, injectable; Translations: [FLU VACCINE 3 YRS & > IM] [facility] 04-20-2018 IMMUNIZATION ADMIN; Translations: [IMMUNIZATION ADMIN] [facility] 04-20-2018 Ericka Muniz [facility] 04-05-2017 influenza, seasonal, injectable; Translations: [FLU VACCINE 3 YRS & > IM] [facility] 04-05-2017 IMMUNIZATION ADMIN; Translations: [IMMUNIZATION ADMIN] [facility] 04-05-2017 Ericka Muniz [facility] 03-31-2016 influenza, seasonal, injectable; Translations: [FLU VACCINE 3 YRS & > IM] [facility] 03-31-2016 IMMUNIZATION ADMIN; Translations: [IMMUNIZATION ADMIN] [facility] 03-31-2016 Ericka Muniz [facility] Payers Date Payer Category Payer Self-pay 2022 Unknown 2021 Medicaid [id number] 2020 Medicare [facility] MEDICARE ADVANTAGE [facility] MEDICARE ADVANTAGE [id number] 2020-Present [address] [place] [address] [id number] 2019 Medicare [id number] 2015 Unknown [id number] [id number] 2015 Unknown [facility] MEDICAID xxxxxxxxxxx 2015-Present [phone] CLAIMS DEPARTMENT [address] [place] [address] xxxxxxxxxxx [id number] 2014 Unknown [id number] 1964 Unknown [id number] 2..[id number] 1964 Unknown [id number] [id number] 1964 Unknown [id number] 2.840.1.324686.3.579.2.173 1964 Unknown [id number] 2.840.1.879107.3.579.2.173 1964 Unknown [id number] 2.840.1.358159.3.579.2.173 1964 Unknown [id number] 2.840.1.208501.3.579.2.173 1964 Unknown [id number] 2.16.840.1.630035.3.579.2.173 1964 Unknown [id number] 2.16.840.1.672570.3.579.2.593 1964 Unknown [id number] 2.16.840.1.736002.3.579.2.593 1964 Unknown [id number] 2.16.840.1.997053.3.579.2.593 1964 Unknown [id number] 2.16.840.1.498059.3.579.2.196 1964 Unknown [id number] 2.16.840.1.550871.3.579.2.196 1964 Unknown [id number] 2.16.840.1.032678.3.579.2.196 1964 Unknown [id number] 2.16.840.1.436288.3.579.2.196 1959 Medicaid [id number] [id number] 1959 Unknown [id number] [id number] Unknown Daniel / [id number] Unknown [id number] 2.16.840.1.897584.3.579.2.531 Unknown [id number] 2.16.840.1.610039.3.579.2.531 Unknown [id number] 2.16.840.1.379327.3.579.2.531 Social History Date Type Detail Facility Start: [place] [facility] Start: 1-2 cups a day [facility] Start: 12-18-2019 End: 12-27-2022 Tobacco smoking status TXIS Current every day smoker [place] History of tobacco use Cigarette Smoker [place] Start: 12-18-2019 End: 12-27-2022 Cigarettes smoked current (pack per day) - Reported [place] Start: 12-18-2019 End: 12-27-2022 Alcohol intake Current drinker of alcohol (finding) [place] Start: 12-17-2019 Alcohol Comment 3X WEEKLY [place] Start: 1965 Sex Assigned At Not on file [place] Exposure to SARS-CoV -2 (event) Unable to assess [place] Start: 01-01-2020 Tobacco use and exposure Never used [place] Exposure to SARS-CoV -2 (event) Not sure [place] Start: *Tobacco [facility] Start: 04-01-2022 End: 08-14-2024 Tobacco smoking status NHIS Smoker (finding) [facility] Start: 1965 Sex Assigned At Male F [facility] Tobacco smoking status No Smokin g Status Entered [facility] Start: 12-27-2022 Sex Assigned At Male F [facility] Start: 12-23-2022 Tobacco Comment 11-20 cigs a day [facility] Start: 12-23-2022 Alcohol Comment 3-4 drinks 4+ times a week. Caffine intake: 2-3 cups per day [facility] Start: 1/2 ppd [facility] Start: 3 or 4 per day [facility] Start: 2-3 cups a day [facility] Start: 3/4 ppd [facility] Start: 0-2 per day [facility] Start: 07-20-2024 End: 08-14-2024 Sex Male (finding) [facility] Medical Equipment Procedure Code Equipment Code Equipment Origin al Text Equipment Identifier Dates [place] Sut Corks crew Biocomposite 5.5mm [id number] Start: 12-28-2019 Harbor View Suture Swivelock 4.75x19.1 Biocomposite Min 5ea [id number] Start: 12-28-2019 Button Endoscopi c Bicep 2.6x12mm [id number] Start: 12-28-2019 Clinical Notes 04-14-2022 to 07-19-2024 Telephone Encounter - Shon See - 08/09/2023 9:21 AM ESTTelephone Encounter - Shon See - 08/09/2023 9:21 AM EST Note Date & Type Note Facility 07-19-2024 Procedure note [facility] enter 12-03-2023 Hospital Discharge instructions Additional Instructions Sutures out in 7 to 10 days [facility] Work Phone: 08-09-2023 Telephone encounter Note Patient called stating he fell in the bathroom and has a Q-tip jammed in his ear that will not come out. Per Kaur patient needs to come to [facility] today at 2:30 PM. Patient states he has another appointment and does not think that will work for him. He states he will be calling his other doctor to coordinate. [facility] 08-09-2023 Miscellaneous Notes Patient called stating he fell in the bathroom and has a Q-tip jammed in his ear that will not come out. Per Kaur patient needs to come to [facility] today at 2:30 PM. Patient states he has another appointment and does not think that will work for him. He states he will be calling his other doctor to coordinate. documented in this encounter [facility] 07-28-2022 Note PROCEDURE: XR ANKLE [...] authenticated by: SASHA FLAHERTY Date: 2022-07-28 16:42 [facility] 07-28-2022 Note PROCEDURE: XR [...] authenticated by: SASHA FLAHERTY Date: 2022-07-28 16:42 [facility] 06-24-2022 Note PROCEDURE: XR [...] authenticated by: TESS JHAVERI Date: 2022-06-24 06:20 [facility] 06-24-2022 Note PROCEDURE: XR [...] authenticated by: TESS JHAVERI Date: 2022-06-24 06:20 [facility] 05-05-2022 Progress note Note Date/Time May 05, 2022 2:50pm [facility] [address] [place] [address] Wound Center Provider Note Signed Patient: Geremias Melchor MR#: [id number] : 1965 Acct:[id number] Age/Sex: 56 / M Copies to: NON STAFF Fariha Novak APRN~ HPI Date of Visit Date of Visit: Date of Service: 05/05/2022 Time of Service: 14:47 Narrative HPI: 04/14/22 Geremias is a 56-year-old male presenting to [facility] wound care program for an initial visit [...] is not per se happy with his automatic vulcanizing operator in [place] and therefore I did give him the name of a local automatic vulcanizing operator who could address his concerns with [place] [...] wound start?: March 2022 Mode of Arrival/ Alining Inspector: Personal vehicle Lives with:: Alone Appetite Description: [...] Appearance: Beefy Red, Epithelial Tissue or Bridge, Bertrand and Yellow Percent of Wound Bed Granulated/Red: [...] <Electronically signed by RADHA Novak> 05/05/22 1450 [facility] Work Phone: 1(568) 591-507110-05-2022 Progress note Author Fariha Novak [facility] April 14, 2022 2:46pm Note Date/Time April 14, 2022 2: 46pm [facility] [address] [place] [address] Wound Center Provider Note Signed Patient: Geremias Melchor MR#: [id number] : 1965 Acct:[id number] Age/Sex: 56 / M Copies to: NON STAFF Fariha Novak, TOUR AGENT~ HPI Date of Visit Date of Visit: Date of Service: 04/14/2022 Time of Service: 14:37 Narrative HPI: 04/14/22 Geremias is a 56-year-old male presenting to [facility] wound care program for an initial visit [...] is not per se happy with his automatic vulcanizing operator in [place] and therefore I did give him the name of a local automatic vulcanizing operator who could address his concerns with Charcot [...] wound start?: March 2022 Mode of Arrival/ Alining Inspector: Personal vehicle Lives with:: Alone Appetite Description: [...] w/o penetration to deeper layers Bed Appearance: Bertrand and Yellow Percent of Wound Bed Granulated/Red: 90 Percent of Devitalized: 10 Length (cm): 0.5 Width (cm): 0.6 Depth (cm): 0.1 CM Sq: 0.300 Surrounding Tissue Appearance: Callous Surrounding Tissue Temp: Warm Drainage Amount: Small Drainage Description: Serosanguineous Drainage Odor: No Odor Left Plantar Great Toe: Type: Diabetic Ulcer Diabetic Ulcer Grading: Superficial ulcer of skin w/o penetration to deeper layers Bed Appearance: Bertrand and Yellow Percent of Wound Bed Granulated/Red: 50 Percent of Devitalized: 50 Length (cm): 2.3 Width (cm): 1.5 Depth (cm): 0.1 CM Sq: 3.450 Surrounding Tissue Appearance: Callous Surrounding Tissue Temp: Warm Drainage Amount: Small Drainage Description: Serosanguineous Drainage Odor: No Odor Right Plantar Great Toe: Type: Diabetic Ulcer Diabetic Ulcer Grading: Superficial ulcer of skin w/o penetration to deeper layers Bed Appearance: Bertrand and Yellow Percent of Wound Bed Granulated/Red: 10 Percent of Devitalized: 90 Length (cm): 2.1 Width (cm): 1.1 Depth (cm): 0.1 CM Sq: 2.310 Surrounding Tissue Appearance: Callous Surrounding Tissue Temp: Warm Drainage Amount: Small Drainage Description: Serosanguineous Drainage Odor: No Odor Right Posterior Heel: Type: Diabetic Ulcer Diabetic Ulcer Grading: Superficial ulcer of skin w/o penetration to deeper layers Bed Appearance: Bertrand and Yellow Percent of Wound Bed Granulated/Red: [...] <Electronically signed by RADHA Novak> 04/14/22 1446 [facility] Work Phone: Evaluation + Plan note No data available for this section [facility] information available [facility] Work Phone: Evaluation note* Diagnosis Onset Date Resolution Status Diabetic foot ulcer acute Diabetes chronic Hyperlipidemia chronic Neuropathy chronic Tobacco use chronic [facility] Work Phone: Evaluation note* Diagnosis Onset Date Resolution Status Diabetes chronic Diabetic foot ulcer chronic Hyperlipidemia chronic Neuropathy chronic Tobacco use chronic [facility] Work Phone: Evaluation note* Diagnosis Onset Date Resolution Status Diabetes chronic Hyperlipidemia chronic Neuropathy chronic Tobacco use chronic Diabetic foot ulcer resolved [facility] Work Phone: Hospital Discharge instructions Additional Instructions Return for worsening symptoms Follow-up with wound care and podiatry or [facility] Work Phone: Hospital Discharge instructions No data available for this section [facility] Additional Instructions Continue good wound care until completely healed [facility]: Progress note Author Fariha Novak [facility] May 27, 2022 2:46pm Note Date/Time May 27, 2022 2:46pm [facility] [address] [place] [address] Wound Center Provider Note Signed Patient: Geremias Melchor MR#: [id number] : 1965 Acct:[id number] Age/Sex: 56 / M Copies to: NON STAFF Fariha Novak, TOUR AGENT~ HPI Date of Visit Date of Visit: Date of Service: 05/27/2022 Time of Service: 14:43 Narrative HPI: 04/14/22 Geremias is a 56-year-old male presenting to [facility] wound care program for an initial visit [...] is not per se happy with his automatic vulcanizing operator in [place] and therefore I did give him the name of a local automatic vulcanizing operator who could address his concerns with Charcot [...] wound start?: March 2022 Mode of Arrival/ Alining Inspector: Personal vehicle Lives with:: Alone Appetite Description: [...] <Electronically signed by RADHA Novak> 05/27/22 144 [facility] Work Phone: Progress note No data available for this section [facility] Summary Purpose Family History Relationship Condition Age at Onset Recorded Date/T shannan family member Diabetes mellitus Unknown Advance Directives Documents on File Type Date Recorded Patient Security Guard Expl anation Advance Directives and Living Will Power of Service Mechanic Documents on File Type Date Recorded Patient Security Guard Expl anation Advance Directives and Living Will Power of Service Mechanic Documents on File Type Date Recorded Patient Security Guard Expl anation ACP-Advance Directive ACP-Power of Service Mechanic Advance Directive Response Recorded Date/ Time Advance [...] for any questions regarding your surgery. Call [phone] forurgent questions after 5PM until 8AM 10. [...] RIGHT WO CONTRAST Mignon Greenwood APRN - GLASS TOUGHENING OPERATOR [address] [place] [address] Status Reason Specialty Diagnoses / Procedures Referre d By Contact Referred To Contact Open Radiology Diagnoses Right knee pain, unspecified chronicity Procedures MRI KNEE RIGHT WO CONTRAST Mignon Greenwood APRN - GLASS TOUGHENING OPERATOR [address] [place] [address] Chief Complaint and Reason for Visit Chief [...] 19, 2024 5: 53pm Ref: Dr. Brooks, [facility] August 14 3:04pm Additional Source Comments (unrecognized sect ion and content) No Status Records FoundNo Status Records FoundNo Status Records FoundNo Status Records FoundNo Status Records FoundNo Status Records FoundNo Status Records Found INFORMATION SOURCE (unrecogn ized section and content) DATE CREATED AUTHOR 11/15/2018 [facility] DATE CREATED AUTHOR AUTHOR'S ORGANIZ ATION 03/28/2020 [facility] DATE CREATED AUTHOR AUTHOR'S ORGANIZ ATION 06/21/2020 [facility] DATE CREATED AUTHOR AUTHOR'S ORGANIZ ATION 2022 [facility] DATE CREATED AUTHOR AUTHOR'S ORGANIZ ATION 06/18/2023 [facility] DATE CREATED AUTHOR AUTHOR'S ORGANIZ ATION 11/29/2024 [facility] DATE CREATED AUTHOR AUTHOR'S ORGANIZ ATION 12/22/2024 [facility] Reason for Visit (unrecogniz ed section and content) Status Reason Specialty Diagnoses / Procedures Referre d By Contact Referred To Contact Diagnoses Unspecified rotator cuff tear or rupture of right shoulder, not specified as traumatic RIGHT SHOULDER ROTATOR CUFF TEAR Procedures MD SHLDR ARTHROSCOP,SURG,W/ROTAT CUFF REPR SHOULDER ARTHROSCOPY ROTATOR CUFF REPAIR, POSSIBLE BICEPS TENDONDESIS Tess Escalona MD [address] [id number] [facility] Status Reason Specialty Diagnoses / Procedures Referre d By Contact Referred To Contact Closed Radiology Diagnoses Pain in right shoulder Procedures HC MRI-UPPER EXT JNT WO CONT Tess Escalona MD 27 [facility] [address] [place] [address] [facility] [address] [place] [address] Status Reason Specialty Diagnoses / Procedures Referre d By Contact Referred To Contact Closed Radiology Diagnoses Pain in right knee Procedures [facility] MRI LOWER EXTREM JT, W/O CONTRAST Mignon Greenwood, RADHA - GLASS TOUGHENING OPERATOR [address] [place] [address] [facility] [address] [place] [address] Care Teams (unrecognized sec tion and content) [...] Active Fariha Novak APRN Attending Provider Active Filter Changer Relationship Specialty Start Date End Date Shay Han, [address] [place] [address] PCP - Daniel WANG 12/09/22 Jignesh Muniz MD [address] [place] [address] PCP - General Family Medicine 12/27/22 Team [...] 2023 End: December 14, 2023 Missy Escobedo [facility] Emergency Provider Active Start: December 14, 2023 [...] BE BASED ON THE PRIMARY CLINICAL RECORDS. [facility]. provides no warranty or guarantee of the accuracy or completeness of information in this document.
== END 2025-03-13 11:11 | disposition home or self-care (01) ==
LOC: WC 11:10
PROVIDERS: Visit Provider Podiatrist Foot & Ankle Surgery
DX: E11.621 Type 2 diabetes mellitus with foot ulcer (principal); L97.415 Non-pressure chronic ulcer of right heel and midfoot with muscle involvement without evidence of necrosis; L97.426 Non-pressure chronic ulcer of left heel and midfoot with bone involvement without evidence of necrosis

== ENCOUNTER 2025-03-27 11:02 | Outpatient (OUT) | payer MEDICARE, MEDICAID, SELFPAY ==
--- OUTSIDE RECORDS SUMMARY | 2025-03-27 11:05 | XMS_ITS | Clinical Summary ---
Author Organization [facility] Address [address], [address] [place] [address] Care Team Providers Care Email Marketing Processor Name Role Phone Manfred Muniz MD Primary Care Provider [phone] Allergies No known active allergies Medications furosemide (LASIX) 20 MG tablet Take 20 mg by mouth daily Active gabapentin (NEURONTIN) 800 MG tablet Take 800 mg by mouth 3 times daily. Active metFORMIN (GLUCOPHAGE) 500 MG tablet Take 500 mg by mouth three times daily Active Cyanocobalamin (VITAMIN B-12) 5000 MCG TBDP Take by mouth daily Active Sikes-3 Fatty Acids (FISH OIL) 1200 MG CAPS [...] on file Medical Devices Implanted Type Area Chair Inspector And Leveler Device Identifier Shelf Expiration Date Model / Serial / Lot [place] Sut Corkscrew Biocomposite 5.5mm Implanted:Qty: 1 on 12/28/2019 by Farzad Escalona MD at [facility] Right: Shoulder [employer] 05/10/2020 [id number] / / [id number] [place] Suture Swivelock 4.75x19.1 Biocomposite Min 5ea Implanted:Qty: 1 on 12/28/2019 by Farzad Escalona MD at [facility] Right: Shoulder [employer] 06/09/2023 [id number] / / [id number] Button Endoscopic Bicep 2.6x12mm Implanted:Qty: 1 on 12/28/2019 by Farzad Escalona MD at [facility] Fastener Right: Shoulder [employer] 01/08/2024 [id number] / / [id number] Insurance MEDICARE MEDICAID [place] Care Teams Email Marketing Processor Relationship Specialty Start Date End Date Manfred Muniz MD [address] [place] [address] PCP - General Internal Medicine 12/21/19
--- OUTSIDE RECORDS SUMMARY | 2025-03-27 11:05 | XMS_ITS | Encounter Summary ---
Author Organization [facility] Address [address] [place] [address] Care Team Providers Care Conductor Symphonic Orchestra Name Role Phone Shay Han DO Unavailable [phone] Jignesh Muniz HEALTH PROGRAM SPECIALIST Primary Care Provider [phone] Encounter Details Date Type Department Care Team (Late Contact Info) Description 12/23/2022 Abstract [facility] [address] [facility] [address] [place] [phone] Rachid Crowe DPM [address] [facility] [address] [place] [address] Social History Tobacco Use Types Packs/Day Years [...] [facility] [address] [place] [address] Kimmie Yarbrough MD [address] [place] [address] documented as of this encounter Visit Diagnoses Not on filedocumented in this encounter Care Teams Conductor Symphonic Orchestra Relationship Specialty Start Date End Date Shay Han DO [address] [place] [address] PCP - Daniel WANG 12/09/22 08/10/23 Jignesh Muniz, HEALTH PROGRAM SPECIALIST [address] [place] [address] PCP - General Family Medicine 12/27/22 documented as of this encounter
--- OUTSIDE RECORDS SUMMARY | 2025-03-27 11:05 | XMS_ITS | Encounter Summary ---
Author Organization [facility] Address [address] [facility] [place] [address] Care Team Providers Care Small Business Consultant Name Role Phone Shay Han DO Unavailable [phone] Jignesh Muniz TOOLING ENGINEER Primary Care Provider [phone] Encounter Details Date Type Department Care Team (Late st Contact Info) Description 02/15/2023 Orders Only [facility] [address] [facility] [facility] [place] [address] A, Unknown Practice [address] [place] [address] Social History Tobacco Use Types Packs/Day Years [...] [facility] [address] [place] [address] Kimmie Yarbrough MD [address] [place] [address] documented as of this encounter Procedures Procedure [...] on filedocumented in this encounter Care Teams Small Business Consultant Relationship Specialty Start Date End Date Shay Han DO [address] [place] [address] PCP - Daniel WANG 12/09/22 08/10/23 Jignesh Muniz, TOOLING ENGINEER [address] [place] [address] PCP - General Family Medicine 12/27/22 documented as of this encounter
--- OUTSIDE RECORDS SUMMARY | 2025-03-27 11:05 | XMS_ITS | Clinical Summary ---
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
--- OUTSIDE RECORDS SUMMARY | 2025-03-27 11:05 | XMS_ITS | Encounter Summary ---
Author Organization [facility] Address [address] [place] [address] Care Team Providers Care Autocad Technician Name Role Phone Shay Han DO Unavailable [phone] Jignesh Muniz PHYSICAL EDUCATION SPECIALIST Primary Care Provider [phone] Encounter Details Date Type Department Care Team (Late st Contact Info) Description 02/28/2023 Orders Only [facility] [address] [address] [place] [address] A, Unknown Practice [address] [place] [address] Social History Tobacco Use Types Packs/Day Years [...] Endocrinology [address] [place] [address] Kimmie Yarbrough MD [address] [place] [address] documented as of this encounter Procedures Procedure [...] on filedocumented in this encounter Care Teams Autocad Technician Relationship Specialty Start Date End Date Shay Han DO [address] [place] [address] PCP - Daniel WANG 12/09/22 08/10/23 Jignesh Muniz, PHYSICAL EDUCATION SPECIALIST [address] [place] [address] PCP - General Family Medicine 12/27/22 documented as of this encounter
--- OUTSIDE RECORDS SUMMARY | 2025-03-27 11:05 | XMS_ITS | Clinical Summary ---
Author Organization [facility] Address [address] [place] [address] Care Team Providers Care Head Cook Name Role Phone Jignesh Muniz NP Primary Care Provider Allergies No known active allergies Medications ammonium [...] [facility] [address] [place] [address] Kimmie Yarbrough MD [address] [place] [address] Health Maintenance Due Date Last Done Comments CT Colonography 1965 Colonoscopy 1965 Colorectal Cancer Screening 1965 FIT-DNA 1965 FIT 1965 FOBT 1965 Sigmoidoscopy 1965 Influenza Vaccine (#1) 2025 05/08/2024, 2021, 04/30/2021 Insurance [employer] MEDICARE ADVANTAGE MEDICAID [place] Care Teams Head Cook Relationship Specialty Start Date End Date Jignesh Muniz NP PCP - General Family Medicine 12/27/22
--- OUTSIDE RECORDS SUMMARY | 2025-03-27 11:05 | XMS_ITS | Patient Health Record ---
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.21) Active confirmed Problem Incomplete rupture of right rotator cuff (M75.111) Active confirmed Problem [id number] Right shoulder pain, unspecified chronicity (M25.511) Active confirmed Plan Of Treatment No Information Insurance Providers Payer Name Payer Address Payer Phone Subscriber Number Group Number Insured Name Patient Relationship to Insured Coverage Start Date Coverage End Date Medicare [place] [employer] [address] [place] [address] [id number] GEREMIAS ARAYA Self - patient is the insured [place] Dept of Medicaid [address] [place] [address] [id number] GEREMIAS ARAYA Self - patient is the insured Medicare [address] [address] [id number] GEREMIAS ARAYA Self - patient is the [...]
--- OUTSIDE RECORDS SUMMARY | 2025-03-27 11:05 | XMS_ITS | Encounter Summary ---
Author Organization [facility] Address [address] [place] [address] Care Team Providers Care Continuous Improvement Consultant Name Role Phone GuilleShay levi Lucina DO Unavailable [phone] Jignesh Muniz RIDER TICKET WORKER Primary Care Provider [phone] Encounter Details Date Type Department Care Team (Late st Contact Info) Description 02/08/2023 Orders Only [facility] [address] [place] [address] Sydnie Nagel LPN Social History Tobacco Use [...] [facility] [address] [place] [address] Kimmie Yarbrough MD [address] [place] [address] documented as of this encounter Visit Diagnoses Not on filedocumented in this encounter Care Teams Continuous Improvement Consultant Relationship Specialty Start Date End Date Shay Han DO [address] [place] [address] PCP - Daniel WANG 12/09/22 08/10/23 Jignesh Muniz NP [address] [facility] [address] [place] [address] PCP - General Family Medicine 12/27/22 documented as of this encounter
--- OUTSIDE RECORDS SUMMARY | 2025-03-27 11:05 | XMS_ITS | Patient Health Record ---
Author Organization [facility] in [place] Address [address] [place] [address] Care Team Providers Care Elephant Tamer Name Role Phone None, Unknown or Primary Care Provider Unavailab Nayla Valles Unavailable [phone] Allergies No Known Allergies Results Component Value Reference Range Notes XR ankle RT min 3V (Not yet reviewed by provider) Interpretation: Performing Lab: Notes/Report: Source Facility: [place] [address] XRay Report Signed Patient: GEREMIAS MELCHOR MR#: [id number] : 1965 Acct:[id number] Age/Sex: 58 / M ADM Date: 08/15/24 Loc: RAD Attending Dr: Nayla Chadwick D.P.M. Ordering Physician: Nayla Chadwick D.P.M. Date of Service: 08/15/24 Procedure(s): XR ankle RT min 3V Accession Number(s): [id number] cc: Nayla Chadwick D.P.M.; Physician,Non-Staff [facility] [place] [address] Patient Name: GEREMIAS MELCHOR MRN: [id number] date: 1965 Sex: M Assigned Patient Location: RAD Current Patient Location: Accession/Order Number: [id number] Exam Date: 08/15/2024 15:20 Report Date: 08/17/2024 [...] Signed By: 08/17/24 1135 DD/ 1133 TD/TT: Flap Presser: XR foot RT min 3V (Not yet r eviewed by provider) Interpretation: Performing Lab: Notes/Report: Source Facility: [place] [address] XRay Report Signed Patient: GEREMIAS MELCHOR MR#: [id number] : 1965 Acct:[id number] Age/Sex: 58 / M ADM Date: 08/15/24 Loc: RAD Attending Dr: Nayla Chadwick D.P.M. Ordering Physician: Nayla Chadwick D.P.M. Date of Service: 08/15/24 Procedure(s): XR foot RT min 3V Accession Number(s): [id number] cc: Nayla Chadwick D.P.M.; Physician,Non-Staff [facility] [place] [address] Patient Name: GEREMIAS MELCHOR MRN: [id number] date: 1965 Sex: M Assigned Patient [facility] Current Patient Location: Accession/Order Number: [id number] Exam Date: 08/15/2024 15:20 Report Date: 08/17/2024 [...] Signed By: 08/17/24 1135 DD/ 1133 TD/TT: Flap Presser: CA segmental UE or [place] (N ot yet reviewed by provider) Interpretation: Performing Lab: Notes/Report: Source Facility: [facility] [place] [address] [place] [address] Cardiology Report Signed Patient: GEREMIAS MELCHOR MR#: [id number] : 1965 Acct:[id number] Age/Sex: 58 / M ADM Date: 10/31/24 Loc: CARD Attending Dr: Rachana GE Ordering Physician: Rachana Jean Date of Service: 10/31/24 Procedure(s): CA segmental UE or [place] Accession Number(s): [id number] cc: Rachana Jean; Physician,Non-Staff Zari [facility] Test Date: 2024-10-31 Pat Name: GEREMIAS MELCHOR Department: Room: - 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 layer exposed (L97.312) Active confirmed Problem Non-pressure chronic ulcer of left heel and midfoot limited to breakdown of skin (L97.421) Active confirmed Problem Chronic ulcer of foot (858503977) Non-pressure chronic ulcer of left heel and midfoot with fat layer exposed (L97.422) Active confirmed Problem Chronic ulcer of foot (268160385) Non-pressure chronic ulcer of other part of left foot with fat layer exposed (L97.522) Active confirmed Problem Arthropathy associated with a neurological disorder (27072391) Charcot's joint, right ankle and foot (M14.671) Active confirmed Problem Arthralgia of the ankle and/or foot (774539965) Pain in right ankle and joints of right foot (M25.571) Active confirmed Problem Hypertension (49209791) Hypertension (I10) Active confirmed Problem Diabetes mellitus type 2 (disorder) (14021320) DM2 (diabetes mellitus, type 2) (E11.9) Active confirmed Problem Chronic ulcer of foot (170324289) Non-pressure chronic ulcer of right heel and midfoot with fat layer exposed (L97.412) Active confirmed Problem Foot ulcer due to type 2 diabetes mellitus (4513482821956) Diabetes mellitus with foot ulcer due to multiple causes (E11.621) Active confirmed Problem Acquired equinus deformity of foot (90654840) Acquired equinus deformity of foot (M21.6X9) Active confirmed Problem Chronic osteomyelitis of right foot (6346321414402993 ) Chronic osteomyelitis of right foot (M86.671) Active confirmed Problem Polyneuropathy due to type 2 diabetes mellitus (387771199) Diabetes mellitus with diabetic polyneuropathy (E11.42) Active confirmed Problem Ankle ulcer (527869786) Non-healing ulcer of ankle, right, with fat layer exposed (L97.312) Active confirmed Problem Alcohol withdrawal syndrome (630505096) Alcohol withdrawal syndrome (F10.239) Active confirmed Problem High cholesterol (07857155) High cholesterol (E78.00) Active confirmed Problem Presence of functional implant (Z96.9) Active confirmed Problem Ankle ulcer (059407357) Non-pressure chronic ulcer of ankle, right, limited to breakdown of skin (L97.311) Active confirmed Problem Localized, primary osteoarthritis of the ankle and/or foot (457271330) Osteoarthritis of ankle and foot, right (M19.071) Active confirmed Problem Diabetic neuropathic arthropathy (236298926) 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) Active confirmed Problem Chronic osteomyelitis of ankle and/or foot (542492059) Chronic osteomyelitis of right foot with draining sinus (M86.471) Active confirmed Problem Arthropathy associated with a neurological disorder (98210881) Charcot''s joint of right ankle (M14.671) Active confirmed Problem Ankle ulcer (147258302) Ischemic ulcer of right ankle with fat layer exposed (L97.312) Active confirmed Problem Ankle ulcer (407547256) Chronic ulcer of right ankle with fat layer exposed (L97.312) Active confirmed Problem Arthritis of right subtalar joint (1184768274032332 6) 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) Active confirmed Problem Chronic ulcer of plantar surface of right midfoot with fat layer exposed (L97.412) Active confirmed Problem Ankle ulcer (961364252) Non-healing ulcer of right ankle with fat layer exposed (L97.312) Active confirmed Problem Equinus deformit y of right foot (M21.6X1) Active confirmed Encounters Encounter Location Date Provider Diagnosis [facility] [address] [place] [address] [place] [address] 08/15/2024 Nayla Chadwick Charcot's joint, right ankle and foot M14.671 ; Non-pressure chronic ulcer of other part of left foot with fat layer exposed L97.522 ; Cellulitis of left lower limb L03.116 and Pain in right ankle and joints of right foot M25.571 [facility] [address] [place] [address] [place] [address] 08/15/2024 Nayla Wilhelmjose Assessments Encounter Date Diagnosis (ICD Code) Assessment Notes Treatment Notes Treatment Clinical Notes Section Notes 08/15/2024 Charcot's joint, right ankle and foot (ICD-10 - M14.671) Patient seen and evaluated. Patient education provided and all questions answered to his satisfaction. Patient is doing satisfactorily although does have difficulty getting into hiking/hunting boots due to his ankle fusion. I did discuss potential utilization of a [place] boot which he adamantly declined. Although there [...] MEDIBLUE DUAL ADV PRIMARY MEDICARE [address] [place] [address] [phone] [id number] [facility] Ge[facility] Mel[facility] Self - patient is the insured 1 MEDICAID [place] 2ND INS [address] OFFICE OF [place], [place] [id number] Geremias Melchor Self - patient is the insured Medical (General) History Medical History History ICD Code diabetic neuropathy Surgical History Surgery Date(Month/Year) left ankle fusion left foot recon 023 removal of hardware 06/27/2023
--- OUTSIDE RECORDS SUMMARY | 2025-03-27 11:05 | XMS_ITS | Encounter Summary ---
Author Organization [facility] Address [address] [place] [address] Care Team Providers Care Story Reader Name Role Phone Shay Han DO Unavailable [phone] Jignesh Muniz MEDICATION ADMINISTRATION PROFESSIONAL Primary Care Provider [phone] Encounter Details Date Type Department Care Team (Late st Contact Info) Description 02/25/2023 Orders Only [facility] [address] [place] [id number] A, Unknown Practice [address] [place] [address] Social History Tobacco Use Types Packs/Day Years [...] Endocrinology [address] [place] [address] Kimmie Yarbrough MD [address] [place] [address] documented as of this encounter Procedures Procedure Name Priority Date/Time Associated Diagnosis Comments SCANNED LABS Routine 02/23/2023 1:53 PM EDT documented in this encounter Results * SCANNED LABS (02/23/2023 1:53 PM EDT) us Unknown Practice A LAB CHG PERFORMABLES Final Re sult documented in this encounter Visit Diagnoses Not on filedocumented in this encounter Care Teams Story Reader Relationship Specialty Start Date End Date Shay Han DO [address] [place] [address] PCP - Daniel WANG 12/09/22 08/10/23 Jignesh Muniz, MEDICATION ADMINISTRATION PROFESSIONAL [address] [place] [address] PCP - General Family Medicine 12/27/22 documented as of this encounter
--- OUTSIDE RECORDS SUMMARY | 2025-03-27 11:09 | XMS_ITS | CCD ---
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 Name Role Phone LENKA ROQUE Attending Unavailable [...] Care Physician UnavailEricka Encarnacion Primary Care Physician UnavailErcika Encarnacion Primary Care Provider Edilberto Zamora Primary Care Physician Edilberto Pendleton Primary Care Physician Ericka Dotson Primary Care Physician UnavailEricka Encarnacion Primary Care Provider [phone] Ericka Muniz Primary Care Physician Unavailab WALTER [...] Franky P Primary Care Physician Unavai lable [facility], Franky P Primary Care Physician Unavai lable [facility], Franky P Primary Care Physician Unavai josele NON STAFF Primary Care Provider UnavailSOLE Short Emergency Provider RADHA Novak Attending Provider [phone] [facility], CHERYL Yu Attending Provider NON STAFF Primary Care Provider UnavailSOLE Short Emergency Provider [phone] [facility], DPSarina Yu Attending Provider RADHA Novak Attending Provider [facility], CHERYL Ontiveros Attending Provider [phone] RADHA Novak Attending Provider Edilberto Zamora Primary [...] Provider MD Ericka Muniz Primary Care Provider [phone] Gregg [facility] Missy Galan Emergency Provider Ericka Muniz Primary Care Physician UnavailCinthia López Primary Care Physician Unavailcameron Muniz MD, Ericka Shah Primary Care Provider [phone] Todd [facility]IS[facility], Ayanna Gutiérrez Attending Provider Ericka [...] 12-28-2019 fentaNYL (SUBL IMAZE) injection 25 mcg Wpgnobizdde-Wkiwdbaiv-Jmztxq er (1 source) Anticholinergic, Corticosteroid, beta2-Adrenergic Agonist Start: 08-14-2024 Gniquybdwke-Vtquwxbrp-Zljkef er (Trelegy Ellipta) 100-62.5-25 mcg blister with [...] injection 10 mg omega-3 acid ethyl esters (retirement) 1200 mg oral capsule (6 sources) Newcastle-3 Fatty Acids (FISH OIL) 1200 MG CAPS Take by mouth daily 0 Active Newcastle-3 Fatty Acids (FISH OIL) 1200 MG CAPS (1 source) Newcastle-3 Fatty Acids (FISH OIL) 1200 MG CAPS [...] days. 56 tablet 0 12/28/2019 01/04/2020 Active [id number] 200 actuat albuterol 0.09 mg/actuat metered dose [...] Start: 11-11-2023 take 1 puff(s) by [facility] every six hours as needed INHALE 1 PUFF BY MOUTH EVERY 6 HOURS NEEDED Start: 05-11-2022 take 1 puff(s) by [facility] every six hours as needed Ventolin HFA 90 mcg/actuation aerosol inhaler 05/11/2022 INHALE 1 PUFF BY MOUTH EVERY 6 HOURS NEEDED Start: 03-06-2021 take 1 puff(s) by [facility] every six hours as needed Ventolin HFA 90 mcg/actuation aerosol inhaler 03/06/2021 INHALE 1 PUFF BY MOUTH EVERY 6 HOURS NEEDED Start: 10-20-2020 take 1 puff(s) by [facility] every six hours as needed Ventolin HFA 90 mcg/actuation inhalation HFA aerosol inhaler 10/20/2020 INHALE 1 PUFF BY MOUTH EVERY 6 HOURS NEEDED Start: 04-23-2020 take 1 puff(s) by [facility] every six hours as needed Ventolin HFA 90 mcg/actuation inhalation HFA aerosol inhaler 04/23/2020 INHALE 1 PUFF BY MOUTH EVERY 6 HOURS NEEDED Start: 03-14-2019 take 1 puff(s) by [facility] every six hours as needed Ventolin HFA 90 mcg/actuation inhalation HFA aerosol inhaler 03/14/2019 INHALE 1 PUFF BY MOUTH EVERY 6 HOURS NEEDED Start: 10-05-2017 take 1 puff(s) by [facility] every six hours as needed Ventolin HFA [...] pm Start: 11-06-2015 take 8 tablets by [facility] in the morning, then take 1 tablet [...] Start: 11-14-2023 take 1 capsule by [facility] once daily Fluoxetine 10 mg capsule Active [...] Start: 03-21-2024 take 2 tablets by [facility] once daily take 2 tablets (100 mg) [...] times a day [facility] metoprolol tartrate (LOPRESSOR) 25 MG [...] day for 14 days, cover with bandage Newcastle-3 Fatty Acids (Fish Oil) Capsule (8 sources) Start: 04-14-2022 End: 12-03-2023 take 1 capsule by mouth once daily Newcastle-3 Fatty Acids (Fish Oil) Capsule Discontinued 1000 MG PO Daily April 13, 2022 11:00pm December 03, 2023 3:38pm Start: 04-14-2022 End: 12-03-2023 take 1 capsule by mouth once daily Newcastle-3 Fatty Acids (Fish Oil) Capsule Discontinued 1000 MG PO Daily April 14, 2022 12:00am December 03, 2023 4:38pm Start: 04-14-2022 take 1 capsule by [facility] once daily Newcastle-3 Fatty Acids (Fish Oil) Capsule Active 1000 MG PO Daily April 13, 2022 11:00pm Start: 04-14-2022 take 1 capsule by [facility] once daily Newcastle-3 Fatty Acids (Fish Oil) Capsule Active 1000 [...] By: Jakob Torres on 07-19-2024 Study report [facility] [place] [address] XRay Report Signed Patient: Geremias Melchor MR#: [id number] : 1965 Acct:[id number] Age/Sex: 58 / M ADM Date: 5 Loc: RT Room: Type: [facility] Attending Dr: Ayanna CAMPOS Copies to: BETH [...] 1633 Signed By: 07/19/24 1633 [facility] XR chest 2V*on 07-19-2024 XR chest 2V* [facility] Main [place] [address] [place] [address] XRay Report Signed Patient: Geremias Melchor MR#: [id number] : 1965 Acct:[id number] Age/Sex: 58 / M ADM Date: 07/19/24 Loc: RT Room: Type: [facility] Attending Dr: Ayanna CAMPOS Copies to: BETH [...] 4:33 PM Dictation Location: RADIO--19 Transcribed By: KINJLA 07/19/24 1633 Dictated By: Dionte Torres Jr, DO 07/19/24 1633 Signed By: 07/19/24 1633 Normal [facility] Cardiology Office/Clinic Not michele 06-21-2024 [...] Working t (more content not included)... Normal [facility] Cardiac Echocardiogram Trans thoracicon 01-13-2024 Cardiac Echocardiogram Transthoracic TRANSTHORACIC ECHOCARDIOGRAM Study Date/Time: Jan 11 2024 3:48PM BP: 148 / 90 HR: 88 bpm HT/WT: 180.3 cm (71 in) / 108.9 kg (239.5 lb) BSA/BMI: 2.28 m^2 / 33.5 kg/m^2 ORDERING PROVIDER: Ayanna Brooks INTERPRETING PHYSICIAN: Bo Pearce DO ART GILDER: Vonda Paige RDCS, RVT ---- INDICATIONS: Dyspnea. [...] am Signed (more content not included)... Normal [facility] Comment on above: Order Comment: merrill galan Laboratory - Chemistry and C hemistry - challengeon 11-14-2023 Albumin (U) [Mass/Vol] 21.2 Invalid Interpretation Code <17.0 [facility] Albumin [Mass/Vol] 4.60 g/dL Invalid Interpretation Code 3.7-5.0 [facility] Albumin/Creatinine DL <= 20 mg/L (U) [Mass ratio] 43.1 mg/g Invalid Interpretation Code 0.0-30.0 [facility] Albumin/Globulin [Mass ratio] 1.3 {ratio} Invalid Interpretation Code 1.0-2.4 [facility] ALP [Catalytic activity/Vol] 83.0 U/L Invalid Interpretation Code 31-155 [facility] ALT [Catalytic activity/Vol] 51.0 U/L Invalid Interpretation Code 0-50 [facility] Anion gap [Moles/Vol] 14 mmol/L Invalid Interpretation Code 10-20 [facility] AST [Catalytic activity/Vol] 41.0 U/L Invalid Interpretation Code 0-40 [facility] Bilirubin [Mass/Vol] 0.30 mg/dL Invalid Interpretation Code 0.0-1.0 [facility] Bilirubin Ql (U) Negative Invalid Interpretation Code Negative [facility] Calcium [Mass/Vol] 10.40 mg/dL Invalid Interpretation Code 8.5-10.8 [facility] Chloride [Moles/Vol] 102.0 mmol/L Invalid Interpretation Code 100-112 [facility] Cholesterol [Mass/Vol] 236.0 mg/dL Invalid Interpretation Code 0-200 [facility] Cholesterol in HDL [Mass/Vol] 53.0 mg/dL Invalid Interpretation Code 36-100 [email or web address] Cholesterol in LDL [Mass/Vol] 146.0 mg/dL Invalid Interpretation Code 0-130 [email or web address] Cholesterol in VLDL [Mass/Vol] 37.0 mg/dL Invalid Interpretation Code 0-39 [email or web address] Cholesterol.total/C holesterol in HDL [Mass ratio] 4 {ratio} Invalid Interpretation Code [email or web address] CO2 [Moles/Vol] 25.0 mmol/L Invalid Interpretation Code 23-30 [email or web address] Creatinine (U) [Mass/Vol] 49.20 mg/dL Invalid Interpretation Code Not Estab. mg/dL [email or web address] Creatinine [Mass/Vol] 1.10 mg/dL Invalid Interpretation Code 0.5-1.5 [email or web address] Glucose [Mass/Vol] 159.0 mg/dL Invalid Interpretation Code 80-117 [email or web address] Ketones Ql (U) Negative Invalid Interpretation Code Negative [email or web address] pH (U) 6 [pH] Invalid Interpretation Code 5.0-9.0 [email or web address] Potassium [Moles/Vol] 4.40 mmol/L Invalid Interpretation Code 3.5-5.3 [email or web address] Protein [Mass/Vol] 8.20 g/dL Invalid Interpretation Code 6.3-7.9 [facility] Sodium [Moles/Vol] 137.0 mmol/L Invalid Interpretation Code 135-148 [facility] Specific gravity (U) [Rel density] 1.010 Invalid Interpretation Code 1.003-1.030 [facility] Triglyceride [Mass/Vol] 184.0 mg/dL Invalid Interpretation Code 30-150 [facility] Urea nitrogen [Mass/Vol] 16.0 mg/dL Invalid Interpretation Code 7-25 [facility] Urea nitrogen/Creatinine [Mass ratio] 15 mg/mg Invalid Interpretation Code 6-20 [facility] Urobilinogen (U) [Mass/Vol] normal Invalid Interpretation Code normal [facility] Laboratory - Hematology and Cell countson 11-14-2023 Erythrocyte distribution width (RBC) [Ratio] 12.60 % Invalid Interpretation Code 11.5-15.5 [facility] HbA1c (Bld) [Mass fraction] 6.80 % Invalid Interpretation Code 4.3-6.3 [facility] Hematocrit (Bld) [Volume fraction] 46.80 % Invalid Interpretation Code 37.8-51.0 [facility] Hemoglobin (Bld) [Mass/Vol] 15.70 g/dL Invalid Interpretation Code 12.6-17.0 [facility] Hemoglobin Ql (U) Negative Invalid Interpretation Code Negative [facility] MCH (RBC) [Entitic mass] 32.80 pg Invalid Interpretation Code 25.7-33.8 [facility] MCHC (RBC) [Mass/Vol] 33.50 g/dL Invalid Interpretation Code 32.0-36.0 [facility] MCV (RBC) [Entitic vol] 97.70 fL Invalid Interpretation Code 81.0-100.2 [facility] Platelet mean volume (Bld) [Entitic vol] 9.70 fL Invalid Interpretation Code 8.3-11.5 [facility] Platelets (Bld) [#/Vol] 240.0 10*3/uL Invalid Interpretation Code 150-400 [facility] RBC (Bld) [#/Vol] 4.790 10*6/uL Invalid Interpretation Code 4.34-5.61 [facility] WBC (Bld) [#/Vol] 6.90 10*3/uL Invalid Interpretation Code 3.9-10.3 [facility] Laboratory - Specimen inform ationon 11-14-2023 Clarity (U) Clear Invalid Interpretation Code Clear [facility] Color (U) yellow Invalid Interpretation Code yellow [facility] Laboratory - Urinalysison Glucose Test strip (U) [Mass/Vol] 4+ Invalid Interpretation Code Negative [facility] Leukocyte esterase Test strip Ql (U) Trace Invalid Interpretation Code Negative [facility] Nitrite Ql (U) Negative Invalid Interpretation Code Negative [facility] Protein Ql (U) 1+ Invalid Interpretation Code Negative [facility] No Panel Informationon 11-13 148.0 mg/dL Invalid Interpretation Code [facility] 77 Invalid Interpretation Code [facility] No Panel Informationon 08-01 Tobacco smoking status Current Tobacco User Invalid Interpretation Code [facility] Diabetic Retinal Eye Exam Invalid Interpretation Code [facility] Physician Orderon 06-16-2023 Physician Order [id number] Normal [facility] Laboratory - Chemistry and C hemistry - challengeon 01-25-2023 Albumin (U) [Mass/Vol] < 12.0 Invalid Interpretation Code < 17.0 ug/mL [facility] Albumin [Mass/Vol] 4.50 g/dL Invalid Interpretation Code 3.7-5.0 [facility] Albumin/Globulin [Mass ratio] 1.4 {ratio} Invalid Interpretation Code 1.0-2.4 [facility] ALP [Catalytic activity/Vol] 93.0 U/L Invalid Interpretation Code 31-155 [facility] ALT [Catalytic activity/Vol] 62.0 U/L Invalid Interpretation Code 0-50 [facility] Anion gap [Moles/Vol] 16 mmol/L Invalid Interpretation Code 10-20 [facility] AST [Catalytic activity/Vol] 46.0 U/L Invalid Interpretation Code 0-40 [facility] Bilirubin [Mass/Vol] 0.40 mg/dL Invalid Interpretation Code 0.0-1.0 [facility] Bilirubin Ql (U) Negative Invalid Interpretation Code Negative [facility] Calcium [Mass/Vol] 10.20 mg/dL Invalid Interpretation Code 8.5-10.8 [facility] Chloride [Moles/Vol] 99.0 mmol/L Invalid Interpretation Code 100-112 [facility] Cholesterol [Mass/Vol] 212.0 mg/dL Invalid Interpretation Code 0-200 [facility] Cholesterol in HDL [Mass/Vol] 49.0 mg/dL Invalid Interpretation Code 36-100 [facility] Cholesterol in LDL [Mass/Vol] 135.0 mg/dL Invalid Interpretation Code 0-130 [facility] Cholesterol in VLDL [Mass/Vol] 28.0 mg/dL Invalid Interpretation Code 0-39 [facility] Cholesterol.total/C holesterol in HDL [Mass ratio] 4 {ratio} Invalid Interpretation Code [facility] CO2 [Moles/Vol] 26.0 mmol/L Invalid Interpretation Code 23-30 [facility] Creatinine (U) [Mass/Vol] 75.30 mg/dL Invalid Interpretation Code Not Estab. mg/dL [facility] Creatinine [Mass/Vol] 1.10 mg/dL Invalid Interpretation Code 0.5-1.5 [facility] Glucose [Mass/Vol] 111.0 mg/dL Invalid Interpretation Code 80-117 [facility] Ketones Ql (U) Negative Invalid Interpretation Code Negative [facility] pH (U) 6 [pH] Invalid Interpretation Code 5.0-9.0 [facility] Potassium [Moles/Vol] 4.70 mmol/L Invalid Interpretation Code 3.5-5.3 [facility] Prostate specific Ag [Mass/Vol] 0.94 ng/mL Invalid Interpretation Code 0.00-4.00 [facility] Protein [Mass/Vol] 7.80 g/dL Invalid Interpretation Code 6.3-7.9 [facility] Sodium [Moles/Vol] 136.0 mmol/L Invalid Interpretation Code 135-148 [facility] Specific gravity (U) [Rel density] 1.015 Invalid Interpretation Code 1.003-1.030 [facility] Triglyceride [Mass/Vol] 141.0 mg/dL Invalid Interpretation Code 30-150 [email or web address] Urea nitrogen [Mass/Vol] 20.0 mg/dL Invalid Interpretation Code 7-25 [facility] Urea nitrogen/Creatinine [Mass ratio] 18 mg/mg Invalid Interpretation Code 6-20 [email or web address] Urobilinogen (U) [Mass/Vol] normal Invalid Interpretation Code normal [email or web address] Laboratory - Hematology and Cell countson 01-25-2023 Erythrocyte distribution width (RBC) [Ratio] 12.10 % Invalid Interpretation Code 11.5-15.5 [email or web address] HbA1c (Bld) [Mass fraction] 6.60 % Invalid Interpretation Code 4.3-6.3 [email or web address] Hematocrit (Bld) [Volume fraction] 43.70 % Invalid Interpretation Code 37.8-51.0 [email or web address] Hemoglobin (Bld) [Mass/Vol] 14.90 g/dL Invalid Interpretation Code 12.6-17.0 [email or web address] Hemoglobin Ql (U) Negative Invalid Interpretation Code Negative [facility] MCH (RBC) [Entitic mass] 32.50 pg Invalid Interpretation Code 25.7-33.8 [email or web address] MCHC (RBC) [Mass/Vol] 34.10 g/dL Invalid Interpretation Code 32.0-36.0 [email or web address] MCV (RBC) [Entitic vol] 95.40 fL Invalid Interpretation Code 81.0-100.2 [email or web address] Platelet mean volume (Bld) [Entitic vol] 9.20 fL Invalid Interpretation Code 8.3-11.5 [facility] Platelets (Bld) [#/Vol] 225.0 10*3/uL Invalid Interpretation Code 150-400 [facility] RBC (Bld) [#/Vol] 4.580 10*6/uL Invalid Interpretation Code 4.34-5.61 [facility] WBC (Bld) [#/Vol] 8.0 10*3/uL Invalid Interpretation Code 3.9-10.3 [facility] Laboratory - Specimen inform ationon 01-25-2023 Clarity (U) Clear Invalid Interpretation Code Clear [facility] Color (U) yellow Invalid Interpretation Code yellow [facility] Laboratory - Urinalysison Glucose Test strip (U) [Mass/Vol] 4+ Invalid Interpretation Code Negative [facility] Leukocyte esterase Test strip Ql (U) Negative Invalid Interpretation Code Negative [facility] Nitrite Ql (U) Negative Invalid Interpretation Code Negative [facility] Protein Ql (U) Negative Invalid Interpretation Code Negative [facility] No Panel Informationon 01-25 78 Invalid Interpretation Code [facility] 143.0 mg/dL Invalid Interpretation Code [facility] No Panel Informationon 01-24 Tobacco smoking status Current Tobacco User Invalid Interpretation Code [facility] Laboratory - Chemistry and C hemistry - challengeon 07-27-2022 25-hydroxyvitamin D3 [Mass/Vol] 26.8 ng/mL Invalid Interpretation Code 30.0-100.0 [facility] Albumin (U) [Mass/Vol] < 12.0 Invalid Interpretation Code < 17.0 ug/mL [facility] Albumin [Mass/Vol] 4.50 g/dL Invalid Interpretation Code 3.7-5.0 [facility] Albumin/Globulin [Mass ratio] 1.3 {ratio} Invalid Interpretation Code 1.0-2.4 [facility] ALP [Catalytic activity/Vol] 74.0 U/L Invalid Interpretation Code 31-155 [facility] ALT [Catalytic activity/Vol] 24.0 U/L Invalid Interpretation Code 0-50 [facility] Anion gap [Moles/Vol] 16 mmol/L Invalid Interpretation Code 10-20 [facility] AST [Catalytic activity/Vol] 14.0 U/L Invalid Interpretation Code 0-40 [facility] Bilirubin [Mass/Vol] 0.30 mg/dL Invalid Interpretation Code 0.0-1.0 [facility] Bilirubin Ql (U) Negative Invalid Interpretation Code Negative [facility] Calcium [Mass/Vol] 10.20 mg/dL Invalid Interpretation Code 8.5-10.8 [facility] Chloride [Moles/Vol] 96.0 mmol/L Invalid Interpretation Code 100-112 [facility] Cholesterol [Mass/Vol] 218.0 mg/dL Invalid Interpretation Code 0-200 [facility] Cholesterol in HDL [Mass/Vol] 41.0 mg/dL Invalid Interpretation Code 36-100 [facility] Cholesterol in LDL [Mass/Vol] 139.0 mg/dL Invalid Interpretation Code 0-130 [facility] Cholesterol in VLDL [Mass/Vol] 38.0 mg/dL Invalid Interpretation Code 0-39 [email or web address] Cholesterol.total/C holesterol in HDL [Mass ratio] 5 {ratio} Invalid Interpretation Code [email or web address] CO2 [Moles/Vol] 26.0 mmol/L Invalid Interpretation Code 23-30 [email or web address] Creatinine (U) [Mass/Vol] 41.10 mg/dL Invalid Interpretation Code Not Estab. mg/dL [facility] Creatinine [Mass/Vol] 1.0 mg/dL Invalid Interpretation Code 0.5-1.5 [email or web address] GFR/1.73 sq M.predicted among non-blacks MDRD (S/P/Bld) [Vol rate/Area] 77 mL/min/{1.73_m2} Invalid Interpretation Code [email or web address] Glucose [Mass/Vol] 134.0 mg/dL Invalid Interpretation Code 80-117 [facility] Ketones Ql (U) Negative Invalid Interpretation Code Negative [email or web address] Parathyrin.intact [Mass/Vol] 24 pg/mL Invalid Interpretation Code 12-65 [email or web address] pH (U) 6.5 [pH] Invalid Interpretation Code 5.0-9.0 [facility] Phosphate [Mass/Vol] 3.60 mg/dL Invalid Interpretation Code 2.5-4.5 [facility] Potassium [Moles/Vol] 4.60 mmol/L Invalid Interpretation Code 3.5-5.3 [facility] Protein [Mass/Vol] 7.90 g/dL Invalid Interpretation Code 6.3-7.9 [facility] Sodium [Moles/Vol] 133.0 mmol/L Invalid Interpretation Code 135-148 [facility] Specific gravity (U) [Rel density] 1.005 Invalid Interpretation Code 1.003-1.030 [facility] Triglyceride [Mass/Vol] 190.0 mg/dL Invalid Interpretation Code 30-150 [facility] Urea nitrogen [Mass/Vol] 23.0 mg/dL Invalid Interpretation Code 7-25 [facility] Urea nitrogen/Creatinine [Mass ratio] 23 mg/mg Invalid Interpretation Code 6-20 [facility] Urobilinogen (U) [Mass/Vol] normal Invalid Interpretation Code normal [email or web address] Laboratory - Hematology and Cell countson 07-27-2022 HbA1c (Bld) [Mass fraction] 6.70 % Invalid Interpretation Code 4.3-6.3 [facility] Hemoglobin Ql (U) Negative Invalid Interpretation Code Negative [email or web address] Laboratory - Specimen inform ationon 07-27-2022 Clarity (U) clear Invalid Interpretation Code Clear [facility] Color (U) yellow Invalid Interpretation Code yellow [facility] Laboratory - Urinalysison Glucose Test strip (U) [Mass/Vol] 4+ Invalid Interpretation Code Negative [facility] Leukocyte esterase Test strip Ql (U) Negative Invalid Interpretation Code Negative [facility] Nitrite Ql (U) Negative Invalid Interpretation Code Negative [facility] Protein Ql (U) Negative Invalid Interpretation Code Negative [facility] No Panel Informationon 07-27 Body mass index (BMI) [Percentile] Per age and sex 0.1 {percentile} Invalid Interpretation Code [facility] [id number]-[id number] Per age and sex 0.1 {percentile} Invalid Interpretation Code [facility] 146.0 mg/dL Invalid Interpretation Code [facility] Patient did NOT brin g meter Invalid Interpretation Code 70-117 [facility] Laboratory - Chemistry and C hemistry - challengeon 02-17-2022 Albumin (U) [Mass/Vol] 17.1 Invalid Interpretation Code <17.0 [facility] Albumin [Mass/Vol] 4.80 g/dL Invalid Interpretation Code 3.7-5.0 [facility] Albumin/Creatinine DL <= 20 mg/L (U) [Mass ratio] 26.8 mg/g Invalid Interpretation Code 0.0-30.0 [facility] Albumin/Globulin [Mass ratio] 1.7 {ratio} Invalid Interpretation Code 1.0-2.4 [facility] ALP [Catalytic activity/Vol] 65.0 U/L Invalid Interpretation Code 31-155 [facility] ALT [Catalytic activity/Vol] 51.0 U/L Invalid Interpretation Code 0-50 [facility] Anion gap [Moles/Vol] 13 mmol/L Invalid Interpretation Code 10-20 [facility] AST [Catalytic activity/Vol] 30.0 U/L Invalid Interpretation Code 0-40 [facility] Bilirubin [Mass/Vol] 0.50 mg/dL Invalid Interpretation Code 0.0-1.0 [facility] Calcium [Mass/Vol] 10.80 mg/dL Invalid Interpretation Code 8.5-10.8 [email or web address] Chloride [Moles/Vol] 99.0 mmol/L Invalid Interpretation Code 100-112 [email or web address] Cholesterol [Mass/Vol] 214.0 mg/dL Invalid Interpretation Code 0-200 [email or web address] Cholesterol in HDL [Mass/Vol] 57.0 mg/dL Invalid Interpretation Code 36-100 [email or web address] Cholesterol in LDL [Mass/Vol] 133.0 mg/dL Invalid Interpretation Code 0-130 [email or web address] Cholesterol in VLDL [Mass/Vol] 24.0 mg/dL Invalid Interpretation Code 0-39 [email or web address] Cholesterol.total/C holesterol in HDL [Mass ratio] 4 {ratio} Invalid Interpretation Code [email or web address] CO2 [Moles/Vol] 30.0 mmol/L Invalid Interpretation Code 23-30 [email or web address] Creatinine (U) [Mass/Vol] 63.80 mg/dL Invalid Interpretation Code Not Estab. mg/dL [email or web address] Creatinine [Mass/Vol] 1.10 mg/dL Invalid Interpretation Code 0.5-1.5 [email or web address] GFR/1.73 sq M.predicted among non-blacks MDRD (S/P/Bld) [Vol rate/Area] 69 mL/min/{1.73_m2} Invalid Interpretation Code [facility] Glucose [Mass/Vol] 128.0 mg/dL Invalid Interpretation Code 80-117 [facility] Potassium [Moles/Vol] 4.60 mmol/L Invalid Interpretation Code 3.5-5.3 [email or web address] Prostate specific Ag [Mass/Vol] 0.85 ng/mL Invalid Interpretation Code 0.00-4.00 [email or web address] Protein [Mass/Vol] 7.60 g/dL Invalid Interpretation Code 6.3-7.9 [email or web address] Sodium [Moles/Vol] 137.0 mmol/L Invalid Interpretation Code 135-148 [email or web address] Triglyceride [Mass/Vol] 120.0 mg/dL Invalid Interpretation Code 30-150 [email or web address] Urea nitrogen [Mass/Vol] 16.0 mg/dL Invalid Interpretation Code 7-25 [email or web address] Urea nitrogen/Creatinine [Mass ratio] 15 mg/mg Invalid Interpretation Code 6-20 [email or web address] Laboratory - Hematology and Cell countson 02-17-2022 HbA1c (Bld) [Mass fraction] 6.50 % Invalid Interpretation Code 4.3-6.3 [email or web address] No Panel Informationon 02-17 140.0 mg/dL Invalid Interpretation Code [email or web address] Laboratory - Chemistry and C hemistry - challengeon 01-15-2022 Albumin (U) [Mass/Vol] < 12.0 Invalid Interpretation Code < 17.0 ug/mL [email or web address] Albumin [Mass/Vol] 4.70 g/dL Invalid Interpretation Code 3.7-5.0 [email or web address] Albumin/Globulin [Mass ratio] 1.6 {ratio} Invalid Interpretation Code 1.0-2.4 [email or web address] ALP [Catalytic activity/Vol] 66.0 U/L Invalid Interpretation Code 31-155 [email or web address] ALT [Catalytic activity/Vol] 38.0 U/L Invalid Interpretation Code 0-50 [facility] Anion gap [Moles/Vol] 15 mmol/L Invalid Interpretation Code 10-20 [facility] AST [Catalytic activity/Vol] 23.0 U/L Invalid Interpretation Code 0-40 [facility] Bilirubin [Mass/Vol] 0.40 mg/dL Invalid Interpretation Code 0.0-1.0 [facility] Bilirubin Ql (U) Negative Invalid Interpretation Code Negative [facility] Calcium [Mass/Vol] 10.40 mg/dL Invalid Interpretation Code 8.5-10.8 [facility] Chloride [Moles/Vol] 101.0 mmol/L Invalid Interpretation Code 100-112 [facility] CO2 [Moles/Vol] 28.0 mmol/L Invalid Interpretation Code 23-30 [facility] Creatinine (U) [Mass/Vol] 60.60 mg/dL Invalid Interpretation Code Not Estab. mg/dL [facility] Creatinine [Mass/Vol] 1.10 mg/dL Invalid Interpretation Code 0.5-1.5 [facility] Gamma glutamyl transferase [Catalytic activity/Vol] 62 U/L Invalid Interpretation Code 7-51 [facility] GFR/1.73 sq M.predicted among non-blacks MDRD (S/P/Bld) [Vol rate/Area] 69 mL/min/{1.73_m2} Invalid Interpretation Code [facility] Glucose [Mass/Vol] 116.0 mg/dL Invalid Interpretation Code 80-117 [facility] Ketones Ql (U) 1+ Invalid Interpretation Code Negative [email or web address] pH (U) 6 [pH] Invalid Interpretation Code 5.0-9.0 [email or web address] Potassium [Moles/Vol] 4.80 mmol/L Invalid Interpretation Code 3.5-5.3 [email or web address] Protein [Mass/Vol] 7.70 g/dL Invalid Interpretation Code 6.3-7.9 [email or web address] Sodium [Moles/Vol] 139.0 mmol/L Invalid Interpretation Code 135-148 [email or web address] Specific gravity (U) [Rel density] 1.010 Invalid Interpretation Code 1.003-1.030 [email or web address] Urea nitrogen [Mass/Vol] 17.0 mg/dL Invalid Interpretation Code 7-25 [email or web address] Urea nitrogen/Creatinine [Mass ratio] 15 mg/mg Invalid Interpretation Code 6-20 [email or web address] Urobilinogen (U) [Mass/Vol] normal Invalid Interpretation Code normal [email or web address] Laboratory - Hematology and Cell countson 01-15-2022 Erythrocyte distribution width (RBC) [Ratio] 12.50 % Invalid Interpretation Code 11.5-15.5 [email or web address] HbA1c (Bld) [Mass fraction] 6.60 % Invalid Interpretation Code 4.3-6.3 [email or web address] Hematocrit (Bld) [Volume fraction] 49.80 % Invalid Interpretation Code 37.8-51.0 [email or web address] Hemoglobin (Bld) [Mass/Vol] 16.40 g/dL Invalid Interpretation Code 12.6-17.0 [facility] Hemoglobin Ql (U) Negative Invalid Interpretation Code Negative [facility] MCH (RBC) [Entitic mass] 31.90 pg Invalid Interpretation Code 25.7-33.8 [facility] MCHC (RBC) [Mass/Vol] 32.90 g/dL Invalid Interpretation Code 32.0-36.0 [facility] MCV (RBC) [Entitic vol] 96.90 fL Invalid Interpretation Code 81.0-100.2 [facility] Platelet mean volume (Bld) [Entitic vol] 9.30 fL Invalid Interpretation Code 8.3-11.5 [facility] Platelets (Bld) [#/Vol] 216.0 10*3/uL Invalid Interpretation Code 150-400 [facility] RBC (Bld) [#/Vol] 5.140 10*6/uL Invalid Interpretation Code 4.34-5.61 [facility] WBC (Bld) [#/Vol] 7.30 10*3/uL Invalid Interpretation Code 3.9-10.3 [facility] - Specimen inform ationon 01-15-2022 Clarity (U) clear Invalid Interpretation Code Clear [facility] Color (U) yellow Invalid Interpretation Code yellow [facility] Laboratory - Urinalysison Glucose Test strip (U) [Mass/Vol] 4+ Invalid Interpretation Code Negative [facility] Leukocyte esterase Test strip Ql (U) Negative Invalid Interpretation Code Negative [facility] Nitrite Ql (U) Negative Invalid Interpretation Code Negative [facility] Protein Ql (U) Negative Invalid Interpretation Code Negative [facility] No Panel Informationon 01-15 143.0 mg/dL Invalid Interpretation Code [facility] Glucose Meter Check NOT Performed Invalid Interpretation Code 70-117 [facility] Laboratory - Chemistry and C hemistry - challengeon 08-18-2021 Albumin [Mass/Vol] 4.70 g/dL Invalid Interpretation Code 3.7-5.0 [facility] Albumin/Globulin [Mass ratio] 1.7 {ratio} Invalid Interpretation Code 1.0-2.4 [facility] ALP [Catalytic activity/Vol] 62.0 U/L Invalid Interpretation Code 31-155 [facility] ALT [Catalytic activity/Vol] 57.0 U/L Invalid Interpretation Code 0-50 [facility] Anion gap [Moles/Vol] 16 mmol/L Invalid Interpretation Code 10-20 [facility] AST [Catalytic activity/Vol] 33.0 U/L Invalid Interpretation Code 0-40 [facility] Bilirubin [Mass/Vol] 0.40 mg/dL Invalid Interpretation Code 0.0-1.0 [facility] Calcium [Mass/Vol] 10.20 mg/dL Invalid Interpretation Code 8.5-10.8 [facility] Chloride [Moles/Vol] 99.0 mmol/L Invalid Interpretation Code 100-112 [facility] Cholesterol [Mass/Vol] 217.0 mg/dL Invalid Interpretation Code 0-200 [facility] Cholesterol in HDL [Mass/Vol] 49.0 mg/dL Invalid Interpretation Code 36-100 [facility] Cholesterol in LDL [Mass/Vol] 131.0 mg/dL Invalid Interpretation Code 0-130 [facility] Cholesterol in VLDL [Mass/Vol] 37.0 mg/dL Invalid Interpretation Code 0-39 [facility] Cholesterol.total/C holesterol in HDL [Mass ratio] 4 {ratio} Invalid Interpretation Code [facility] CO2 [Moles/Vol] 28.0 mmol/L Invalid Interpretation Code 23-30 [facility] Creatinine [Mass/Vol] 1.10 mg/dL Invalid Interpretation Code 0.5-1.5 [facility] Gamma glutamyl transferase [Catalytic activity/Vol] 98 U/L Invalid Interpretation Code 7-51 [facility] GFR/1.73 sq M.predicted among non-blacks MDRD (S/P/Bld) [Vol rate/Area] 69 mL/min/{1.73_m2} Invalid Interpretation Code [facility] Glucose [Mass/Vol] 127.0 mg/dL Invalid Interpretation Code 80-117 [facility] Potassium [Moles/Vol] 4.40 mmol/L Invalid Interpretation Code 3.5-5.3 [facility] Protein [Mass/Vol] 7.50 g/dL Invalid Interpretation Code 6.3-7.9 [facility] Sodium [Moles/Vol] 139.0 mmol/L Invalid Interpretation Code 135-148 [facility] Triglyceride [Mass/Vol] 186.0 mg/dL Invalid Interpretation Code 30-150 [facility] Urea nitrogen [Mass/Vol] 19.0 mg/dL Invalid Interpretation Code 7-25 [facility] Urea nitrogen/Creatinine [Mass ratio] 17 mg/mg Invalid Interpretation Code 6-20 [email or web address] Laboratory - Hematology and Cell countson 08-18-2021 Erythrocyte distribution width (RBC) [Ratio] 12.60 % Invalid Interpretation Code 11.5-15.5 [email or web address] HbA1c (Bld) [Mass fraction] 6.20 % Invalid Interpretation Code 4.3-6.3 [email or web address] Hematocrit (Bld) [Volume fraction] 48.40 % Invalid Interpretation Code 37.8-51.0 [email or web address] Hemoglobin (Bld) [Mass/Vol] 16.10 g/dL Invalid Interpretation Code 12.6-17.0 [email or web address] MCH (RBC) [Entitic mass] 32.40 pg Invalid Interpretation Code 25.7-33.8 [email or web address] MCHC (RBC) [Mass/Vol] 33.30 g/dL Invalid Interpretation Code 32.0-36.0 [email or web address] MCV (RBC) [Entitic vol] 97.40 fL Invalid Interpretation Code 81.0-100.2 [email or web address] Platelet mean volume (Bld) [Entitic vol] 10.10 fL Invalid Interpretation Code 8.3-11.5 [email or web address] Platelets (Bld) [#/Vol] 214.0 10*3/uL Invalid Interpretation Code 150-400 [email or web address] RBC (Bld) [#/Vol] 4.970 10*6/uL Invalid Interpretation Code 4.34-5.61 [facility] WBC (Bld) [#/Vol] 5.90 10*3/uL Invalid Interpretation Code 3.9-10.3 [facility] No Panel Informationon 08-18 131.0 mg/dL Invalid Interpretation Code [facility] No Specimen, Unable to Void Invalid Interpretation Code [facility] No Panel Informationon 04-09 Diabetic Retinal Eye Exam Invalid Interpretation Code [facility] Laboratory - Chemistry and C hemistry - challengeon 03-19-2021 Albumin [Mass/Vol] 4.60 g/dL Invalid Interpretation Code 3.7-4.5 [facility] Albumin/Globulin [Mass ratio] 1.4 {ratio} Invalid Interpretation Code 1.0-2.4 [facility] ALP [Catalytic activity/Vol] 75.0 U/L Invalid Interpretation Code 31-155 [facility] ALT [Catalytic activity/Vol] 41.0 U/L Invalid Interpretation Code 0-50 [facility] Anion gap [Moles/Vol] 14 mmol/L Invalid Interpretation Code 10-20 [facility] AST [Catalytic activity/Vol] 26.0 U/L Invalid Interpretation Code 0-40 [facility] Bilirubin [Mass/Vol] 0.40 mg/dL Invalid Interpretation Code 0.0-1.0 [facility] Bilirubin Ql (U) Negative Invalid Interpretation Code Negative [facility] Calcium [Mass/Vol] 10.10 mg/dL Invalid Interpretation Code 8.5-10.8 [facility] Chloride [Moles/Vol] 99.0 mmol/L Invalid Interpretation Code 100-112 [facility] CO2 [Moles/Vol] 28.0 mmol/L Invalid Interpretation Code 23-30 [email or web address] Creatinine [Mass/Vol] 0.90 mg/dL Invalid Interpretation Code 0.5-1.5 [email or web address] GFR/1.73 sq M.predicted among non-blacks MDRD (S/P/Bld) [Vol rate/Area] 87 mL/min/{1.73_m2} Invalid Interpretation Code [facility] Glucose [Mass/Vol] 135.0 mg/dL Invalid Interpretation Code 80-117 [facility] Ketones Ql (U) Negative Invalid Interpretation Code Negative [email or web address] Parathyrin.intact [Mass/Vol] 22 pg/mL Invalid Interpretation Code 12-65 [facility] pH (U) 6 [pH] Invalid Interpretation Code 5.0-9.0 [facility] Phosphate [Mass/Vol] 3.50 mg/dL Invalid Interpretation Code 2.5-4.5 [facility] Potassium [Moles/Vol] 4.50 mmol/L Invalid Interpretation Code 3.5-5.3 [facility] Protein [Mass/Vol] 7.80 g/dL Invalid Interpretation Code 6.3-7.9 [facility] Sodium [Moles/Vol] 136.0 mmol/L Invalid Interpretation Code 135-148 [facility] Specific gravity (U) [Rel density] 1.015 Invalid Interpretation Code 1.003-1.030 [facility] Urea nitrogen [Mass/Vol] 15.0 mg/dL Invalid Interpretation Code 7-25 [facility] Urea nitrogen/Creatinine [Mass ratio] 17 mg/mg Invalid Interpretation Code 6-20 [facility] Urobilinogen (U) [Mass/Vol] normal Invalid Interpretation Code normal [facility] Laboratory - Hematology and Cell countson 03-19-2021 Erythrocyte distribution width (RBC) [Ratio] 12.80 % Invalid Interpretation Code 11.5-15.5 [facility] HbA1c (Bld) [Mass fraction] 6.40 % Invalid Interpretation Code 4.3-6.3 [facility] Hematocrit (Bld) [Volume fraction] 49.0 % Invalid Interpretation Code 37.8-51.0 [facility] Hemoglobin (Bld) [Mass/Vol] 16.60 g/dL Invalid Interpretation Code 12.6-17.0 [facility] Hemoglobin Ql (U) Negative Invalid Interpretation Code Negative [facility] MCH (RBC) [Entitic mass] 32.10 pg Invalid Interpretation Code 25.7-33.8 [facility] MCHC (RBC) [Mass/Vol] 33.90 g/dL Invalid Interpretation Code 32.0-36.0 [facility] MCV (RBC) [Entitic vol] 94.80 fL Invalid Interpretation Code 81.0-100.2 [facility] Platelet mean volume (Bld) [Entitic vol] 9.60 fL Invalid Interpretation Code 8.3-11.5 [facility] Platelets (Bld) [#/Vol] 257.0 10*3/uL Invalid Interpretation Code 150-400 [facility] RBC (Bld) [#/Vol] 5.170 10*6/uL Invalid Interpretation Code 4.34-5.61 [facility] WBC (Bld) [#/Vol] 6.90 10*3/uL Invalid Interpretation Code 3.9-10.3 [facility] Laboratory - Specimen inform ationon 03-19-2021 Clarity (U) clear Invalid Interpretation Code Clear [facility] Color (U) yellow Invalid Interpretation Code yellow [facility] Laboratory - Urinalysison Glucose Test strip (U) [Mass/Vol] 4+ Invalid Interpretation Code Negative [facility] Leukocyte esterase Test strip Ql (U) Negative Invalid Interpretation Code Negative [facility] Nitrite Ql (U) Negative Invalid Interpretation Code Negative [facility] Protein Ql (U) Negative Invalid Interpretation Code Negative [facility] No Panel Informationon 03-19 137.0 mg/dL Invalid Interpretation Code [facility] patient's meter brok e and doesn't have new one yet Invalid Interpretation Code 70-117 [facility] Laboratory - Chemistry and C hemistry - challengeon 12-23-2020 Albumin (U) [Mass/Vol] < 12.0 Invalid Interpretation Code < 17.0 ug/mL [facility] Albumin [Mass/Vol] 4.40 g/dL Invalid Interpretation Code 3.7-4.5 [facility] Albumin/Globulin [Mass ratio] 1.5 {ratio} Invalid Interpretation Code 1.0-2.4 [facility] ALP [Catalytic activity/Vol] 69.0 U/L Invalid Interpretation Code 31-155 [facility] ALT [Catalytic activity/Vol] 30.0 U/L Invalid Interpretation Code 0-50 [facility] Anion gap [Moles/Vol] 13 mmol/L Invalid Interpretation Code 10-20 [facility] AST [Catalytic activity/Vol] 20.0 U/L Invalid Interpretation Code 0-40 [facility] Bilirubin [Mass/Vol] 0.40 mg/dL Invalid Interpretation Code 0.0-1.0 [facility] Bilirubin Ql (U) Negative Invalid Interpretation Code Negative [facility] Calcium [Mass/Vol] 9.80 mg/dL Invalid Interpretation Code 8.5-10.8 [facility] Chloride [Moles/Vol] 98.0 mmol/L Invalid Interpretation Code 100-112 [facility] Cholesterol [Mass/Vol] 207.0 mg/dL Invalid Interpretation Code 0-200 [facility] Cholesterol in HDL [Mass/Vol] 40.0 mg/dL Invalid Interpretation Code 36-100 [facility] Cholesterol in LDL [Mass/Vol] 100.0 mg/dL Invalid Interpretation Code 0-130 [facility] Cholesterol in VLDL [Mass/Vol] 67.0 mg/dL Invalid Interpretation Code 0-39 [facility] Cholesterol.total/C holesterol in HDL [Mass ratio] 5 {ratio} Invalid Interpretation Code [facility] CO2 [Moles/Vol] 29.0 mmol/L Invalid Interpretation Code 23-30 [facility] Creatinine (U) [Mass/Vol] 31.90 mg/dL Invalid Interpretation Code Not Estab. mg/dL [facility] Creatinine [Mass/Vol] 1.0 mg/dL Invalid Interpretation Code 0.5-1.5 [facility] GFR/1.73 sq M.predicted among non-blacks MDRD (S/P/Bld) [Vol rate/Area] 77 mL/min/{1.73_m2} Invalid Interpretation Code [facility] Glucose [Mass/Vol] 113.0 mg/dL Invalid Interpretation Code 80-117 [facility] Ketones Ql (U) Negative Invalid Interpretation Code Negative [facility] pH (U) 6 [pH] Invalid Interpretation Code 5.0-9.0 [facility] Potassium [Moles/Vol] 4.40 mmol/L Invalid Interpretation Code 3.5-5.3 [facility] Prostate specific Ag [Mass/Vol] 0.76 ng/mL Invalid Interpretation Code 0.00-4.00 [facility] Protein [Mass/Vol] 7.30 g/dL Invalid Interpretation Code 6.3-7.9 [facility] Sodium [Moles/Vol] 136.0 mmol/L Invalid Interpretation Code 135-148 [facility] Specific gravity (U) [Rel density] 1.005 Invalid Interpretation Code 1.003-1.030 [facility] Triglyceride [Mass/Vol] 334.0 mg/dL Invalid Interpretation Code 30-150 [facility] Urea nitrogen [Mass/Vol] 15.0 mg/dL Invalid Interpretation Code 7-25 [facility] Urea nitrogen/Creatinine [Mass ratio] 15 mg/mg Invalid Interpretation Code 6-20 [facility] Urobilinogen (U) [Mass/Vol] normal Invalid Interpretation Code normal [email or web address] Laboratory - Hematology and Cell countson 12-23-2020 Erythrocyte distribution width (RBC) [Ratio] 12.90 % Invalid Interpretation Code 11.5-15.5 [email or web address] HbA1c (Bld) [Mass fraction] 6.30 % Invalid Interpretation Code 4.3-6.3 [email or web address] Hematocrit (Bld) [Volume fraction] 48.0 % Invalid Interpretation Code 37.8-51.0 [email or web address] Hemoglobin (Bld) [Mass/Vol] 16.40 g/dL Invalid Interpretation Code 12.6-17.0 [email or web address] Hemoglobin Ql (U) Negative Invalid Interpretation Code Negative [email or web address] MCH (RBC) [Entitic mass] 32.20 pg Invalid Interpretation Code 25.7-33.8 [email or web address] MCHC (RBC) [Mass/Vol] 34.20 g/dL Invalid Interpretation Code 32.0-36.0 [email or web address] MCV (RBC) [Entitic vol] 94.10 fL Invalid Interpretation Code 81.0-100.2 [email or web address] Platelet mean volume (Bld) [Entitic vol] 9.30 fL Invalid Interpretation Code 8.3-11.5 [email or web address] Platelets (Bld) [#/Vol] 265.0 10*3/uL Invalid Interpretation Code 150-400 [email or web address] RBC (Bld) [#/Vol] 5.10 10*6/uL Invalid Interpretation Code 4.34-5.61 [facility] WBC (Bld) [#/Vol] 7.30 10*3/uL Invalid Interpretation Code 3.9-10.3 [facility] Laboratory - Specimen inform ationon 12-23-2020 Clarity (U) clear Invalid Interpretation Code Clear [facility] Collection time (Andrei) [Date/time] 10:56 am Invalid Interpretation Code [facility] Color (U) yellow Invalid Interpretation Code yellow [facility] Laboratory - Urinalysison Glucose Test strip (U) [Mass/Vol] 4+ Invalid Interpretation Code Negative [facility] Leukocyte esterase Test strip Ql (U) Negative Invalid Interpretation Code Negative [facility] Nitrite Ql (U) Negative Invalid Interpretation Code Negative [facility] Protein Ql (U) Negative Invalid Interpretation Code Negative [facility] No Panel Informationon 12-23 134.0 mg/dL Invalid Interpretation Code [facility] Laboratory - Chemistry and C hemistry - challengeon 09-09-2020 Albumin/Globulin [Mass ratio] 1.2 {ratio} Invalid Interpretation Code 1.0-2.4 [facility] Bilirubin Ql (U) Negative Invalid Interpretation Code Negative [facility] Ketones Ql (U) Negative Invalid Interpretation Code Negative [facility] Urobilinogen (U) [Mass/Vol] normal Invalid Interpretation Code normal [facility] Laboratory - Urinalysison Leukocyte esterase Test strip Ql (U) Negative Invalid Interpretation Code Negative [facility] Nitrite Ql (U) Negative Invalid Interpretation Code Negative [facility] Protein Ql (U) Negative Invalid Interpretation Code Negative [facility] Metabolic Panelon 09-09-2020 Albumin [Mass/Vol] 4.40 g/dL Invalid Interpretation Code 3.7-4.5 [facility] ALP [Catalytic activity/Vol] 81.0 U/L Invalid Interpretation Code 31-155 [facility] ALT [Catalytic activity/Vol] 57.0 U/L Invalid Interpretation Code 0-50 [facility] Anion gap [Moles/Vol] 13 mmol/L Invalid Interpretation Code 10-20 [facility] AST [Catalytic activity/Vol] 36.0 U/L Invalid Interpretation Code 0-40 [facility] Bilirubin [Mass/Vol] 0.60 mg/dL Invalid Interpretation Code 0.0-1.0 [facility] Calcium [Mass/Vol] 11.0 mg/dL Invalid Interpretation Code 8.5-10.8 [facility] Chloride [Moles/Vol] 97.0 mmol/L Invalid Interpretation Code 100-112 [facility] CO2 [Moles/Vol] 27.0 mmol/L Invalid Interpretation Code 23-30 [facility] Creatinine [Mass/Vol] 1.60 mg/dL Invalid Interpretation Code 0.5-1.5 [facility] GFR/1.73 sq M predicted among non-blacks MDRD (S/P/Bld) [Vol rate/Area] 45 mL/min/{1.73_m2} Invalid Interpretation Code [facility] Glucose [Mass/Vol] 148.0 mg/dL Invalid Interpretation Code 80-117 [facility] Glucose [Mass/Vol] Patient did not brin g strips for meter 70-117 [facility] HbA1c (Bld) [Mass fraction] 6.90 % Invalid Interpretation Code 4.3-6.3 [facility] Potassium [Moles/Vol] 4.90 mmol/L Invalid Interpretation Code 3.5-5.3 [facility] Protein [Mass/Vol] 8.20 g/dL Invalid Interpretation Code 6.3-7.9 [facility] Sodium [Moles/Vol] 132.0 mmol/L Invalid Interpretation Code 135-148 [email or web address] Urea nitrogen [Mass/Vol] 23.0 mg/dL Invalid Interpretation Code 7-25 [facility] Urea nitrogen/Creatinine [Mass ratio] 14 mg/mg Invalid Interpretation Code 6-20 [email or web address] No Panel Informationon 09-09 Patient did not brin g strips for meter Invalid Interpretation Code 70-117 [facility] Otheron 09-09-2020 Albumin/Globulin [Mass ratio] 1.2 (calc) 1.0-2.4 [email or web address] Bilirubin Ql (U) Negative Negative [facility] Glucose Test strip (U) [Mass/Vol] 4+ Invalid Interpretation Code Negative [facility] Hemoglobin Ql (U) Trace Invalid Interpretation Code Negative [facility] Nitrite Ql (U) Negative Negative [facility] pH (U) 5 [pH] Invalid Interpretation Code 5.0-9.0 [facility] Protein Ql (U) Negative Negative [facility] Urobilinogen Test strip (U) [Mass/Vol] normal normal [facility] 151.0 mg/dL Invalid Interpretation Code [facility] Urinalysison 09-09-2020 Clarity (U) Clear Invalid Interpretation Code Clear [facility] Color (U) yellow Invalid Interpretation Code yellow [facility] Ketones Ql (U) Negative Negative [facility] Leukocyte esterase Test strip Ql (U) Negative Negative [facility] Specific gravity (U) [Rel density] 1.015 Invalid Interpretation Code 1.003-1.030 [facility] Coding Summaryon 06-20-2020 Coding Summary CODING DATE: [facility] STATUS: Home PAYOR: Medicare APC DESCRIPTION [...] Bright Aguilera' Date Saved: 06/20/2020 12:49 pm [facility] Coding Summary CODING DATE: [facility] STATUS: Home PAYOR: Medicare APC DESCRIPTION [...] Aguilera' Date Saved: 06/20/2020 12:47 pm Normal [facility] .Auto Diff 06-17-2020 [facility] [place] % 7 % Normal 07-22 [facility] Comment on above: Performed By: #### [id number] #### [facility] (DEFAULT) [address] [place] [id number] Baso Abs# 0.0 x10 Normal 0.0-0.2 [facility] Comment on above: Performed By: #### 7 [id number] #### [facility] [facility] (DEFAULT[facility] [address] [place] [address] 48725 Basophils/100 WBC (Bld) 0.5 % Normal 0.2-2.0 [facility] Comment on above: Performed By: #### 7 810436, 2462309, 77628781, [id number], [id number] #### [facility] (DEFAULT) [address] [place] [address] 05966 Eos Abs# 0.2 x10 Normal 0.0-0.4 [facility] Comment on above: Performed By: #### 7 261494, 2497694, 86714312, [id number], [id number] #### [facility] (DEFAULT) [address] [place] [address] 40748 Eosinophils/100 WBC (Bld) 2.3 % Normal 0.9-4.0 [facility] Comment on above: Performed By: #### 7 001478, 0995305, 68939054, 3101341541, [id number] #### [facility] (DEFAULT) [address] [place] [address] 92511 Lymphocytes (Bld) [#/Vol] 2.3 x10 Normal 1.3-2.9 [facility] Comment on above: Performed By: #### 7 462787, 8208747, 29540391, [id number], [id number] #### [facility] (DEFAULT) [address] [place] [address] Lymphocytes/100 WBC (Bld) 25 % Normal 14-48 [facility] Comment on above: Performed By: #### 7 601589, 2427544, 26993833, [id number], [id number] #### [facility] (DEFAULT) [address] [place] [address] [place] Abs# 0.7 x10 Normal 0.0-0.8 [facility] Comment on above: Performed By: #### 7 748618, 6568414, 48063531, [id number], [id number] #### [facility] (DEFAULT) [address] [place] [address] Neut Abs# 6.0 x10 Normal 1.5-9.2 [facility] Comment on above: Performed By: #### 7 304404, 4494566, 77286582, [id number], [id number] #### [facility] (DEFAULT) [address] [place] [address] Neutrophils/100 WBC (Bld) 65 % Normal 44-88 [facility] Comment on above: Performed By: #### 7 836795, 0223084, 76819800, [id number], [id number] #### [facility] (DEFAULT) [address] [place] [address] .QC Respiratory Panel 2.1 (B ioFire)on 06-17-2020 Internal Control-Resp Panel 2.1(BioFire) Pass Normal [facility] Comment on above: Order Comment: Order ed by Chloe. [[email or web address]] Performed By: #### 6 [id number] #### [facility] (DEFAULT) [address] [place] [address] 91073 CBC w/ Auto Diffon 0 Erythrocyte distribution width (RBC) [Ratio] 12.9 % Normal 11.5-15.0 [facility] Comment on above: Performed By: #### 7 742765, 4202525, 95715660, 9463038997, [id number] #### [facility] (DEFAULT) [address] [place] [address] Hematocrit (Bld) [Volume fraction] 45.1 % Normal 34.8-51.9 [facility] Comment on above: Performed By: #### 7 342872, 1106464, 09840151, 9087283758, [id number] #### [facility] (DEFAULT) [address] [place] [address] Hemoglobin (Bld) [Mass/Vol] 15.6 g/dL Normal 11.8-17.7 [facility] Comment on above: Performed By: #### 7 441354, 4628304, 70203007, 8767936048, 4710669604 #### [facility] (DEFAULT) [address] [place] [address] Man Diff? Auto Normal [facility] Comment on above: Performed By: #### 7 520187, 3452963, 12506360, [id number], [id number] #### [facility] (DEFAULT) [address] [place] [address] MCH (RBC) [Entitic mass] 32 pg Normal 24-34 [facility] Comment on above: Performed By: #### 7 002353, 3832579, 96232721, 0481127264, [id number] #### [facility] (DEFAULT) [address] [place] [address] MCHC (RBC) [Mass/Vol] 35 g/dL Normal 26-37 [facility] Comment on above: Performed By: #### 7 110736, 3214456, 86950526, [id number], [id number] #### [facility] (DEFAULT) [address] [place] [address] MCV (RBC) [Entitic vol] 93 fL Normal 81-100 [facility] Comment on above: Performed By: #### 7 618204, 4351920, 30178709, 2799614144, 1015689664 #### [facility] (DEFAULT) [address] [place] [address] 11000 Platelet mean volume (Bld) [Entitic vol] 9.9 fL Normal 6.3-10.2 [facility] Comment on above: Performed By: #### 7 193920, 8729883, 28707827, 0982918742, 8279792665 #### [facility] (DEFAULT) [address] [place] [address] 79913 Platelets (Bld) [#/Vol] 277 x10 Normal 138-427 [facility] Comment on above: Performed By: #### 7 909005, 0763786, 33379901, 5872855311, 2278285412 #### [facility] (DEFAULT) [address] [place] [address] 84507 RBC (Bld) [#/Vol] 4.83 x10 Normal 3.70-5.30 [facility] Comment on above: Performed By: #### 7 664951, 5760102, 09749503, 9918933190, 7467190316 #### [facility] (DEFAULT) [address] [place] [address] 63119 WBC (Bld) [#/Vol] 9.3 x10 Normal 3.5-10.5 [facility] Comment on above: Performed By: #### 7 632039, 7527070, 88943538, 0986738222, 8128693095 #### [facility] (DEFAULT) [address] [place] [address] Standardon 06-17-2020 eGFR Non AA >60 [facility] Comment on above: Performed By: #### 7 444447, 6922682, 35475372, 2831027291, [id number] #### [facility] (DEFAULT) [address] [place] [address] eGFR AA >60 [facility] Comment on above: Result Comment: Pressure Steamer Tender shannan Kidney disease could be indicated at eGFRs of less than 60 ml/min/1.73m2. Kidney Failure is indicated at less than 15 ml/min/1.73m2 Performed By: #### 7 827496, 8658086, 23908695, 7493358888, 0774652871 #### [facility] (DEFAULT) [address] [place] [address] 35632 Albumin [Mass/Vol] 4.0 g/dL Normal 3.5-5.[address] [facility] Comment on above: Performed By: #### 7 545623, 0888679, 14106240, 4240733587, [id number] #### [facility] (DEFAULT) [address] [place] [address] 78521 Albumin/Globulin [Mass ratio] 1.1 {ratio} Low 1.4-2.6 [facility] Comment on above: Performed By: #### 7 244687, 9779367, 25179171, 5385620707, 4710628511 #### [facility] (DEFAULT) [address] [place] [address] Alk Phos 70 IU/L Normal 32-91 [facility] Comment on above: Performed By: #### 7 857013, 6013271, 59532060, 2219444964, [id number] #### [facility] (DEFAULT) [address] [place] [address] 66108 ALT/SGPT 42.0 IU/L Normal 17.0-63.0 [facility] Comment on above: Performed By: #### 7 848120, 3486226, 74018427, 2496198312, 1409409874 #### [facility] (DEFAULT) [address] [place] [address] 63297 Anion gap [Moles/Vol] 13.0 mmol/L Normal 5.0-19.0 [facility] Comment on above: Performed By: #### 7 604105, 9403542, 47138421, 2351736534, 3997667621 #### [facility] (DEFAULT) [address] [place] [address] 36808 AST/SGOT 27 IU/L Normal 15-41 [facility] Comment on above: Performed By: #### 7 663214, 2533610, 65549274, 2270266819, [id number] #### [facility] (DEFAULT) [address] [place] [address] 64304 Bili Total 0.7 mg/dL Normal 0.3-1.2 [facility] Comment on above: Performed By: #### 7 479838, 4811085, 05719658, 5257634587, 2605897868 #### [facility] (DEFAULT) [address] [place] [address] 43417 Calcium [Mass/Vol] 9.0 mg/dL Normal 8.9-10.[address] [facility] Comment on above: Performed By: #### 7 818376, 4058766, 41369198, 5283017261, 5504391468 #### [facility] (DEFAULT) [address] [place] [address] 88249 Chloride [Moles/Vol] 102 mmol/L Normal 101-111 [facility] Comment on above: Performed By: #### 7 060212, 5304373, 87054326, 6488855840, 1346415139 #### [facility] (DEFAULT) [address] [place] [address] 68818 CO2 [Moles/Vol] 25 mmol/L Normal 21-32 [facility] Comment on above: Performed By: #### 7 284962, 3698279, 53504926, 2652560329, 9976111434 #### [facility] (DEFAULT) [address] [place] [address] 24127 Creatinine [Mass/Vol] 0.97 mg/dL Normal 0.90-1.30 [facility] Comment on above: Performed By: #### 7 168842, 8986430, 40523994, 8128550790, 1604318980 #### [facility] (DEFAULT) [address] [place] [address] 68971 Globulin (S) [Mass/Vol] 3.5 g/dL Normal 1.5-4.3 [facility] Comment on above: Performed By: #### 7 889589, 1740479, 85043695, 3118452592, 8051873716 #### [facility] (DEFAULT) [address] [place] [address] 64735 Glucose [Mass/Vol] 123.0 mg/dL High 74.0-118.0 [facility] Comment on above: Performed By: #### 7 194955, 7373447, 77548178, 5027762762, 5074148549 #### [facility] (DEFAULT) [address] [place] [address] 93608 Osmolality [Osmolality] 276 mOsm/L [facility] Comment on above: Performed By: #### 7 390303, 7777442, 63315593, 2441845340, 6032769109 #### [facility] (DEFAULT) [address] [place] [address] 51475 Potassium [Moles/Vol] 3.6 mmol/L Normal 3.6-5.1 [facility] Comment on above: Performed By: #### 7 461063, 6602982, 28970191, 4660603903, 4473545172 #### [facility] (DEFAULT) [address] [place] [address] 81209 Protein [Mass/Vol] 7.5 g/dL Normal 6.5-8.[address] [facility] Comment on above: Performed By: #### 7 675954, 4113370, 33415437, 3844133235, 1598699835 #### [facility] (DEFAULT) [address] [place] [address] 06412 Sodium [Moles/Vol] 136.0 mmol/L Normal 136.0-144.0 [facility] Comment on above: Performed By: #### 7 386270, 5044091, 02530498, 7098230744, 9757574619 #### [facility] (DEFAULT) [address] [place] [address] 29335 Urea nitrogen [Mass/Vol] 19 mg/dL Normal 8-26 [facility] Comment on above: Performed By: #### 7 935992, 2827735, 57077473, 5778696575, 1123003244 #### [facility] (DEFAULT) [address] [place] [address] 16378 Urea nitrogen/Creatinine [Mass ratio] 20.0 mg/mg High 4.6-16.2 [facility] Comment on above: Performed By: #### 7 059753, 3603772, 68945780, 8443395006, 4314474662 #### [facility] (DEFAULT) [address] [place] [address] 63416 D-Dimeron 06-17-2020 D-Dimer 0.23 mg/L FEU Normal 0.19-0.50 [facility] Comment on above: Result Comment: The [...] Liver cirrhosis ? Performed By: #### 7 526378, 3054737, 20862676, 6471331280, 4251403814 #### [facility] (DEFAULT) [address] [place] [address] 03550 ED Clinical Summaryon 2019 ED Clinical Summary [facility] - Emergency Department [address] [place] [address] 65005 ED Clinical Summary PERSON INFORMATION Name: GEREMIAS MELCHOR Age: 54 Years Sex: MALE : 1965 MRN: Acct#: Visit Reason: Shortness of breath; SOB Arrival: 06/17/2020 15:26:17 Discharge: 06/17/2020 17:58:00 LOS: 000 02:32 Check In: 06/17/2020 15:26:17 Checkout:06/17/2020 17:58:00 Address: [address] [place] [address] PCP: Ericka Muniz MD PROVIDER INFORMATION Provider [...] Adult Follow-Up: With: Address: When: Ericka Taylor [place] [phone] Business (1) Within 3 to 5 days DIAGNOSIS: Viral URI with cough Patient Understands: Yes - Patient/family/caregiver verbalizes understanding of instructions given Comment: [facility] ED Note - Physicianon 2019 ED [...] % Auto Lymph % 25 % Auto [place] % 7 % Auto Eos % 2.3 % Auto Baso % 0.5 % Neut Abs# 6.0 x103/mcL Lymph Abs# 2.3 x103/mcL [place] Abs# 0.7 x103/mcL Eos Abs# 0.2 x103/mcL [...] and Plan Diagnosis Viral URI with cough ([id number] J06.9, Discharge, Medical) Plan Condition: Stable. Disposition: [...] [Verified on: 06/17/2020 18:26 EST] Otilia Francois [facility] ED Note-Nursingon 06-17-2020 ED Note-Nursing Patient [...] feels more short of breath than normal. [facility] ED Patient Education Noteon 06-17-2020 ED [...] to help relieve symptoms, such as: ? Yhab-enu-mvnhkap cold medicines. ? Cough suppressants. Coughing is [...] other clear broths. General instructions ? Take fldu-lbj-cwluhkh and prescription medicines only as told by [...] and water are not available, use hand supervisor grain and yeast plants. ? Avoid touching your mouth, face, eyes, [...] 12/21/2001 Document Revised: 07/05/2019 Document Reviewed: 02/10/2018 [employer] Patient Education ? 2019 [employer]. ENT Cough, Adult Coughing is a reflex [...] these instructions at home: Medicines ? Take zmuo-imd-utvlawf and prescription medicines only as told by [...] a condition that needs treatment. ? Take vavl-gxo-gwlpvnm and prescription medicines only as told by [...] Reviewed: 07/16/2019 Elsevier Patient Education ? 2019 [employer] Normal [facility] ED Patient Summaryon 020 ED Patient Summary [facility] - Emergency Department [address] [place] [address] PATIENT DISCHARGE INSTRUCTIONS Patient Information Name: GEREMIAS MELCHOR Age: 54 Years Date of : 1965 [facility]: [id number] Reason For Visit: Shortness of breath; SOB Arrival Time: 06/17/2020 15:26:17 Primary Care Physician: Ericka Muniz MD Attending Physician: Landon Vegas MD Comment: Visit Diagnosis: Diagnoses This Visit Shortness of breath ([id number]) Viral URI with cough (J06.9) Prescription Information: If you have been given a prescription for narcotics, seek immediate medical attention if you have any difficulty breathing or any sudden status changes such as confusion and sleepiness. If you or anyone you know is experiencing suicidal thoughts, mental health, alcohol and/or drug addiction problems; contact the [facility] 31/01 Crisis Hotline -[facility] 4HOPE to 279618. If you received any narcotics, sedation, or [...] legal documents With: Address: When: Ericka Muniz [address] [place] [address] Business (1) Within 3 to 5 days Medication Information: The exam and treatment you received today in the [facility] Department were for an urgent problem and are not intended as complete care. It is important for you to follow up with a doctor, nurse practitioner, or physician?s mri assistant for ongoing care. If your symptoms [...] so we can reach you if necessary. [facility] Emergency Department has provided you with a complete list of medications post discharge. Please inform your assistant curator/provider of your visit and for further instruction [...] to help relieve symptoms, such as: ? Tewr-ifu-xvjgays cold medicines. ? Cough suppressants. Coughing is [...] other clear broths. General instructions ? Take oqox-ahj-euvqhem and prescription medicines only as told by [...] and water are not available, use hand supervisor grain and yeast plants. ? Avoid touching your mouth, face, eyes, [...] 12/21/2001 Document Revised: 07/05/2019 Document Reviewed: 02/10/2018 [employer] Patient Education ? 2020 [employer] Cough, Adult Coughing is a reflex [...] these instructions at home: Medicines ? Take mkte-syl-vuwjnij and prescription medicines only as told by [...] a condition that needs treatment. ? Take jjwp-tnb-eijoqyy and prescription medicines only as told by [...] 12/24/2011 Document Revised: 07/16/2019 Document Reviewed: 07/16/2019 [employer] Patient Education ? 2019 [employer]. Viruses or Bacteria What?s got you sick? [...] Disease Control and Prevention March 2014 Normal [facility] Extra Redon 06-17-2020 Tube Collected Yes [facility] Comment on above: Performed By: #### 7 791412, 9184786, 27762792, [id number], [id number] #### [facility] (DEFAULT) [address] [place] [address] TnI HSon 06-17-2020 Troponin I High Sensitivity 4 pg/mL Normal <=20 [facility] Comment on above: Result Comment: Male Baseline Delta 1Hr (Note pg/mL=ng/L) <20pg/mL 50-60% >20pg/mL 20% Female Baseline Delta 1Hr <15pg/mL 50-60% >15pg/mL 20% Other Baseline Delta 1Hr <18ng/mL 50-60% >18ng/mL 20% ([employer] Guidelines February 2018) Performed By: #### 7 300372, 8491057, 06868265, [id number], [id number] #### [facility] (DEFAULT) [address] [place] [address] Metabolic Panelon 04-08-2020 ALT [Catalytic activity/Vol] 50.0 U/L Invalid Interpretation Code [facility] Bilirubin [Mass/Vol] 0.3 mg/dL 0.0-1.0 [facility] HbA1c (Bld) [Mass fraction] 6.6 % 4.3-6.3 [facility] HbA1c (Bld) [Mass fraction] 6.60 % Invalid Interpretation Code [facility] Albumin [Mass/Vol] 4.50 g/dL Invalid Interpretation Code [facility] AST [Catalytic activity/Vol] 31.0 U/L Invalid Interpretation Code [facility] No Panel Informationon 04-08 6.6 Invalid Interpretation Code 4.3-6.3 [facility] 0.3 Invalid Interpretation Code 0.0-1.0 [facility] Negative Invalid Interpretation Code Negative [facility] Otheron 04-08-2020 Negative Negative [facility] 4+ Invalid Interpretation Code Negative [facility] Clear Invalid Interpretation Code Clear [facility] normal Invalid Interpretation Code normal [facility] yellow Invalid Interpretation Code yellow [facility] 50 0-50 [facility] 6 Invalid Interpretation Code 5.0-9.0 [facility] 31 Invalid Interpretation Code 0-40 [facility] 78 Invalid Interpretation Code 31-155 [facility] 1.010 Invalid Interpretation Code 1.003-1.030 [facility] 1.5 Invalid Interpretation Code 1.0-2.4 [facility] 4.5 Invalid Interpretation Code 3.7-4.5 [facility] 7.5 Invalid Interpretation Code 6.3-7.9 [facility] 143 Invalid Interpretation Code [facility] 115.0 mg/dL Invalid Interpretation Code <140 [facility] ls Invalid Interpretation Code [facility] MRI KNEE RIGHT WO CONTRASTon 03-25-2020 MRI [...] Jos Martins MD 03/25/20 Final result Normal [facility] Inner free edge degeneration of [...] suggestive of sprains. No definite tear identified. [facility], [place] EXAMINATION: MRI OF THE RIGHT [...] are most compatible with a microtrabecular infraction. [facility]- [place], [place] Ezekiel, pn Incoming Radiant Results From [facility] - 03/25/2020 3:02 PM EDT EXAMINATION: MRI [...] suggestive of sprains. No definite tear identified. [place], [place] MRI SHOULDER RIGHT WO CONTRA STon [...] approximately 7 mm in greatest AP dimension. Vzieklyj-qb-vjsbxz underlying supraspinatus tendinopathy and granulation tissue. Kygb-yl-critzias underlying infraspinatus tendinopathy. Mild subscapularis tendinopathy. Teres [...] 6. No paralabral cyst formation. GLENOHUMERAL JOINT: Kjkx-gp-dcdshlbe glenohumeral chondromalacia. Small amount of fluid in [...] dimension with tear gap measuring 1.5 cm. Kbfgxnch-ub-brnrnp underlying supraspinatus tendinopathy and granulation tissue. Wfll-qo-pidkbuoe underlying infraspinatus tendinopathy. 2. Mild subscapularis tendinopathy. 3. Mild atrophy and fatty degeneration of subscapularis. 4. Mild diffuse labral degeneration. Degenerative tearing along the superior labrum. 5. Mmhs-bw-iykglsfq glenohumeral chondromalacia. 6. Mild degenerative change of the right AC joint. 7. Prior biceps tenodesis. 8. Susceptibility artifact and marrow edema surrounding a stress riser at the anterior humeral head. Interpreted by: Rodrigo Purcell MD Signed by: Rodrigo Purcell MD 02/12/20 Final result Normal [facility] 1. Prior rotator cuf f repair. Region of full-thickness tearing of the critical zone along mid and posterior supraspinatus measuring 7 mm in greatest AP dimension with tear gap measuring 1.5 cm. Swjubgwc-ok-efrttz underlying supraspinatus tendinopathy and granulation tissue. Viuf-wm-npaeqigr underlying infraspinatus tendinopathy. 2. Mild subscapularis tendinopathy. 3. Mild atrophy and fatty degeneration of subscapularis. 4. Mild diffuse labral degeneration. Degenerative tearing along the superior labrum. 5. Lmop-yg-nifsdzef glenohumeral chondromalacia. 6. Mild degenerative change of the right AC joint. 7. Prior biceps tenodesis. 8. Susceptibility artifact and marrow edema surrounding a stress riser at the anterior humeral head. [facility], [place] EXAMINATION: MRI OF THE RIGHT [...] approximately 7 mm in greatest AP dimension. Swnuvwwo-rf-fzrgai underlying supraspinatus tendinopathy and granulation tissue. Cwpi-wy-oprbajjs underlying infraspinatus tendinopathy. Mild subscapularis tendinopathy. Teres [...] 6. No paralabral cyst formation. GLENOHUMERAL JOINT: Wbko-ai-wwrvxdmw glenohumeral chondromalacia. Small amount of fluid in [...] unremarkable in appearance. No right axillary lymphadenopathy. [facility]- [place], [place] E[place]iel, pn Incoming Radiant Results From [facility] - 02/12/2020 3:46 PM EDT EXAMINATION: MRI [...] approximately 7 mm in greatest AP dimension. Bihyltbv-av-cwetel underlying supraspinatus tendinopathy and granulation tissue. Nhxq-kd-yczfcphl underlying infraspinatus tendinopathy. Mild subscapularis tendinopathy. Teres [...] 6. No paralabral cyst formation. GLENOHUMERAL JOINT: Twbx-wu-nuvhflwi glenohumeral chondromalacia. Small amount of fluid in [...] dimension with tear gap measuring 1.5 cm. Kzytwwxl-pn-nmpkre underlying supraspinatus tendinopathy and granulation tissue. Dlbf-ze-pntdlfdk underlying infraspinatus tendinopathy. 2. Mild subscapularis tendinopathy. 3. Mild atrophy and fatty degeneration of subscapularis. 4. Mild diffuse labral degeneration. Degenerative tearing along the superior labrum. 5. Oiok-xa-qqqiriwk glenohumeral chondromalacia. 6. Mild degenerative change of the right AC joint. 7. Prior biceps tenodesis. 8. Susceptibility artifact and marrow edema surrounding a stress riser at the anterior humeral head. [place], [place] Glucose, Whole Bloodon 12-27 Glucose [Mass/Vol] 113 mg/dL High 74 - 100 mg/dL [place] Interpretation and review of laboratory results Abnormal [place] BUNon 12-26-2019 Urea nitrogen [Mass/Vol] 16 mg/dL 6 - 20 mg/dL [place] BUN (Urea N)on 12-26-2019 Urea nitrogen [Mass/Vol] 16 mg/dL Normal 6-20 [facility] Comment on above: Performed By: #### H CT, BUN, CREG, GLU, LYTE #### [facility] [address] [place] [address] Brush Cleaner: Domingo Rayo MD Creatinine w/GFRon 0 (cont.) Normal [facility] Comment on above: Result Comment: Aver age GFR for 50-59 years old: 93 mL/min/1.73sq m Chronic Kidney Disease: <60 mL/min/1.73sq m Kidney failure: <15 mL/min/1.73sq m eGFR calculated using average adult body mass. Additional eGFR calculator available at: http://[email or web address]/multiple_crcl_2012.htm Performed By: #### H CT, BUN, CREG, GLU, LYTE #### [facility] [address] [place] [address] Brush Cleaner: Domingo Rayo MD Creatinine [Mass/Vol] 1.15 mg/dL Normal 0.70-1.20 [facility] Comment on above: Performed By: #### H CT, BUN, CREG, GLU, LYTE #### [facility] [address] [place] [address] Brush Cleaner: Domingo Rayo MD GFR, Amer >60 Normal >60 [facility] Comment on above: Performed By: #### H CT, BUN, CREG, GLU, LYTE #### [facility] [address] [place] [address] Brush Cleaner: Domingo Rayo MD GFR,non Amer >60 Normal >60 [facility] Comment on above: Performed By: #### H CT, BUN, CREG, GLU, LYTE #### [facility] [address] [place] [address] Brush Cleaner: Domingo Rayo MD Staging: Normal [facility] Comment on above: Result Comment: Stag e 1: Some kidney damage normal GFR Stage 2: Mild kidney damage GFR 60-89 Stage 3: Moderate kidney damage GFR 30-59 Stage 4: Severe kidney damage GFR 15-29 Stage 5: Severe kidney damage GFR <15 ESRD - chronic treatment by dialysis or transplant Performed By: #### H CT, BUN, CREG, GLU, LYTE #### [facility] [address] [place] [address] Brush Cleaner: Domingo Rayo MD Creatinine, Serumon 12-26-19 Creatinine [Mass/Vol] 1.15 mg/dL 0.7 - 1.2 mg/dL [place] GFR >60 >60 mL/min [place] GFR Non- >60 >60 mL/min [place] Electrolyte Panelon 12-26-19 Anion gap [Moles/Vol] 17 mmol/L 9 - 17 mmol/L [place] Chloride [Moles/Vol] 95 mmol/L Low 98 - 107 mmol/L [place], [place] CO2 [Moles/Vol] 24 mmol/L 20 - 31 mmol/L [place] Potassium [Moles/Vol] 3.7 mmol/L 3.7 - 5.3 mmol/L [place] Sodium [Moles/Vol] 136 mmol/L 135 - 144 mmol/L [place] Electrolyteson 12-26-2019 Anion gap [Moles/Vol] 17 mmol/L Normal 03-27 [facility] Comment on above: Performed By: #### H CT, BUN, CREG, GLU, LYTE #### [facility] [address] [place], [place] [id number] Brush Cleaner: Domingo Rayo MD Chloride [Moles/Vol] 95 mmol/L Low 98-107 [facility] Comment on above: Performed By: #### H CT, BUN, CREG, GLU, LYTE #### [facility] [address] [place] [address] Brush Cleaner: Domingo Rayo MD CO2 [Moles/Vol] 24 mmol/L Normal 20-31 [facility] Comment on above: Performed By: #### H CT, BUN, CREG, GLU, LYTE #### [facility] [address] [place] [address] Brush Cleaner: Domingo Rayo MD Potassium [Moles/Vol] 3.7 mmol/L Normal 3.7-5.3 [facility] Comment on above: Performed By: #### H CT, BUN, CREG, GLU, LYTE #### [facility] [address] [place] [facility] Brush Cleaner: Domingo Rayo MD Sodium [Moles/Vol] 136 mmol/L Normal 135-144 [facility] Comment on above: Performed By: #### H CT, BUN, CREG, GLU, LYTE #### [facility] [address] [place] [address] Brush Cleaner: Domingo Rayo MD Glucoseon 12-26-2019 Glucose [Mass/Vol] 107 mg/dL High 70-99 [facility] Comment on above: Performed By: #### H CT, BUN, CREG, GLU, LYTE #### [facility] [address] [place] [address] Brush Cleaner: Domingo Rayo MD Glucose, randomon 12-26-2019 Glucose [Mass/Vol] 107 mg/dL High 70 - 99 mg/dL [facility], [place] Hematocriton 12-26-2019 Hematocrit (Bld) [Volume fraction] 47.4 % Normal 40.7-50.3 [facility] Comment on above: Performed By: #### H CT, BUN, CREG, GLU, LYTE #### [facility] [address] [place] [address] Brush Cleaner: Domingo Rayo MD Hematocrit (Bld) [Volume fraction] 47.4 % 40.7 - 50.3 % [place], [place] Metabolic Panelon 12-26-2019 GFR/1.73 sq M predicted among non-blacks MDRD (S/P/Bld) [Vol rate/Area] [place] Comment on above: Average GFR for 50-5 9 years old: 93 mL/min/1.73sq m Chronic Kidney Disease: <60 mL/min/1.73sq m Kidney failure: <15 mL/min/1.73sq m eGFR calculated using average adult body mass. Additional eGFR calculator available at: [email or web address] Stage 1: Some kidney damage normal GFR Stage 2: Mild kidney damage GFR 60-89 Stage 3: Moderate kidney damage GFR 30-59 Stage 4: Severe kidney damage GFR 15-29 Stage 5: Severe kidney damage GFR <15 ESRD - chronic treatment by dialysis or transplant Otheron 12-26-2019 Interpretation and review of laboratory results Abnormal [place] COVID-19on 12-25-2019 SARS-CoV-2 Not Detected Not Detected [place] Comment on above: The specimen is NEGATIVE for SARS-CoV-2, the novel coronavirus associated with COVID-19. A negative result does not rule out COVID-19. This test has been authorized by the FDA under an Emergency Use Authorization (EUA) for use by authorized laboratories. Fact sheet for Healthcare Providers: https://www.fda.gov/media/292750/download Fact sheet for Patients: https://www.fda.gov/media/190349/download METHODOLOGY: RT-PCR SARS-CoV-2, PCR [place] SARS-CoV-2, Rapid [facility] [place] Source .NASOPHARYNGEAL SWAB [place] [id number] 12-25-2019 SARS-CoV-2,Rapid Normal [facility] Comment on above: Performed By: #### C OVID #### [facility] [address] [place] [address] Brush Cleaner: Sam Jacobs MD [facility] [address] [place] [address] Brush Cleaner: Domingo Rayo MD SARS-CoV-2 [facility] Comment on above: Performed By: #### C OVID #### [facility] [address] [place] [address] Brush Cleaner: Sam Jacobs MD [facility] [address] [place] [address] [address] [place] [address] Brush Cleaner: Domingo Rayo MD SARS-CoV-2 Not Detected [facility] Comment on above: Result Comment: The specimen is NEGATIVE for SARS-CoV-2, the novel coronavirus associated with COVID-19. A negative result does not rule out COVID-19. This test has been authorized by the FDA under an Emergency Use Authorization (EUA) for use by authorized laboratories. Fact sheet for Healthcare Providers: https://www.fda.gov/media/479190/download Fact sheet for Patients: https://www.fda.gov/media/358074/download METHODOLOGY: RT-PCR Performed By: #### C OVID #### [facility] [address] [place] [address] Brush Cleaner: Sam Jacobs MD [facility] [address] [place] [address] Brush Cleaner: Domingo Rayo MD EKG 12 Leadon 12-24-2019 Atrial Rate 92 BPM [facility], [place] P [place] 52 degrees [facility], [place] P-R Interval [address] [facility] [place], [place] Q-T Interval [address] [facility] [place] QRS Duration 96 ms [facility], [place] QTc Calculation (Bazett) 445 ms [facility] [place], [place] R [place] 34 degrees [facility] [place], [place] T [place] 46 degrees [facility] [place] Ventricular Rate 92 BPM [place], [place] Normal sinus rhythm Normal ECG No previous ECGs available Confirmed by Federico Burks MD ([id number]) on 12/24/2019 4:59:35 PM [place], [place] Ezekiel, Mhpn Incoming E kg Results From [facility] [place] - 12/24/2019 4:59 PM EDT Normal sinus rhythm Normal ECG No previous ECGs available Confirmed by Federico Burks MD ([id number]) on 12/24/2019 4:59:35 PM [facility] JACQUELINE [id number] 12-24-2019 SARS-CoV-2 Source .NASOPHARYNGEAL SWAB Normal [facility] Comment on above: Performed By: #### C OVID #### [facility] [address] [place] [address] Brush Cleaner: Sam Jacobs MD [facility] [address] [place] [address] Brush Cleaner: Domingo Rayo MD Laboratory - Chemistry and C hemistry - challengeon 12-20-2019 Bilirubin Ql (U) Negative Invalid Interpretation Code Negative [facility] Urobilinogen (U) [Mass/Vol] normal Invalid Interpretation Code normal [facility] Laboratory - Hematology and Cell countson 12-20-2019 Hemoglobin Ql (U) Negative Invalid Interpretation Code Negative [facility] Laboratory - Urinalysison Leukocyte esterase Test strip Ql (U) Negative Invalid Interpretation Code Negative [facility] Nitrite Ql (U) Negative Invalid Interpretation Code Negative [facility] Protein Ql (U) Negative Invalid Interpretation Code Negative [facility] Metabolic Panelon 12-20-2019 Anion gap [Moles/Vol] 20 mmol/L Invalid Interpretation Code 10-20 [facility] Calcium [Mass/Vol] 9.10 mg/dL Invalid Interpretation Code 8.5-10.8 [facility] Chloride [Moles/Vol] 97.0 mmol/L Invalid Interpretation Code 100-112 [facility] CO2 [Moles/Vol] 23.0 mmol/L Invalid Interpretation Code 23-30 [facility] Creatinine [Mass/Vol] 1.0 mg/dL Invalid Interpretation Code 0.5-1.5 [facility] GFR/1.73 sq M predicted among non-blacks MDRD (S/P/Bld) [Vol rate/Area] 78 mL/min/{1.73_m2} Invalid Interpretation Code [facility] Glucose [Mass/Vol] 90.0 mg/dL Invalid Interpretation Code 80-117 [facility] HbA1c (Bld) [Mass fraction] 6.80 % Invalid Interpretation Code 4.3-6.3 [facility] Potassium [Moles/Vol] 4.10 mmol/L Invalid Interpretation Code 3.5-5.3 [facility] Sodium [Moles/Vol] 136.0 mmol/L Invalid Interpretation Code 135-148 [facility] Urea nitrogen [Mass/Vol] 16.0 mg/dL Invalid Interpretation Code 7-25 [facility] Urea nitrogen/Creatinine [Mass ratio] 16 mg/mg Invalid Interpretation Code 6-20 [facility] Otheron 12-20-2019 Bilirubin Ql (U) Negative Negative [facility] Glucose Test strip (U) [Mass/Vol] 4+ Invalid Interpretation Code Negative [facility] Hemoglobin Ql (U) Negative Negative [facility] Nitrite Ql (U) Negative Negative [facility] pH (U) 5 [pH] Invalid Interpretation Code 5.0-9.0 [facility] Protein Ql (U) Negative Negative [facility] Urobilinogen Test strip (U) [Mass/Vol] normal normal [facility] 148 [facility] 148.0 mg/dL Invalid Interpretation Code [facility] Urinalysison 12-20-2019 Clarity (U) clear Invalid Interpretation Code Clear [facility] Color (U) yellow Invalid Interpretation Code yellow [facility] Ketones Ql (U) 1+ Invalid Interpretation Code Negative [facility] Leukocyte esterase Test strip Ql (U) Negative Negative [facility] Specific gravity (U) [Rel density] 1.010 Invalid Interpretation Code 1.003-1.030 [facility] Cardiacon 11-19-2019 Cholesterol [Mass/Vol] 153.0 mg/dL Invalid Interpretation Code 0-200 [facility] Cholesterol in HDL [Mass/Vol] 56.0 mg/dL Invalid Interpretation Code 36-100 [facility] Cholesterol in LDL [Mass/Vol] 80.0 mg/dL Invalid Interpretation Code 0-130 [facility] Triglyceride [Mass/Vol] 84.0 mg/dL Invalid Interpretation Code 30-150 [facility] Metabolic Panelon 11-19-2019 Albumin [Mass/Vol] 4.60 g/dL Invalid Interpretation Code 3.7-4.5 [facility] ALP [Catalytic activity/Vol] 75.0 U/L Invalid Interpretation Code 31-155 [facility] ALT [Catalytic activity/Vol] 54.0 U/L Invalid Interpretation Code 0-50 [facility] Anion gap [Moles/Vol] 18 mmol/L Invalid Interpretation Code 10-20 [facility] AST [Catalytic activity/Vol] 37.0 U/L Invalid Interpretation Code 0-40 [facility] Bilirubin [Mass/Vol] 0.50 mg/dL Invalid Interpretation Code 0.0-1.0 [facility] Calcium [Mass/Vol] 9.40 mg/dL Invalid Interpretation Code 8.5-10.8 [facility] Chloride [Moles/Vol] 99.0 mmol/L Invalid Interpretation Code 100-112 [facility] CO2 [Moles/Vol] 27.0 mmol/L Invalid Interpretation Code 23-30 [facility] Creatinine [Mass/Vol] 1.0 mg/dL Invalid Interpretation Code 0.5-1.5 [facility] GFR/1.73 sq M predicted among non-blacks MDRD (S/P/Bld) [Vol rate/Area] 78 mL/min/{1.73_m2} Invalid Interpretation Code [facility] Glucose [Mass/Vol] 120.0 mg/dL Invalid Interpretation Code 80-117 [facility] HbA1c (Bld) [Mass fraction] 6.80 % Invalid Interpretation Code 4.3-6.3 [facility] Potassium [Moles/Vol] 4.0 mmol/L Invalid Interpretation Code 3.5-5.3 [facility] Protein [Mass/Vol] 7.80 g/dL Invalid Interpretation Code 6.3-7.9 [facility] Sodium [Moles/Vol] 140.0 mmol/L Invalid Interpretation Code 135-148 [facility] Urea nitrogen [Mass/Vol] 13.0 mg/dL Invalid Interpretation Code 7-25 [facility] Urea nitrogen/Creatinine [Mass ratio] 13 mg/mg Invalid Interpretation Code 6-20 [facility] Otheron 11-19-2019 Albumin (U) [Mass/Vol] 22.3 Invalid Interpretation Code <17.0 [facility] Albumin/Globulin [Mass ratio] 1.4 {ratio} Invalid Interpretation Code 1.0-2.4 [facility] Cholesterol in VLDL [Mass/Vol] 17.0 mg/dL Invalid Interpretation Code 0-39 [facility] Cholesterol.total/C holesterol in HDL [Mass ratio] 3 {ratio} Invalid Interpretation Code [facility] 148 [email or web address] 148.0 mg/dL Invalid Interpretation Code [facility] 54.0 U/L 0-50 [facility] Urinalysison 11-19-2019 Albumin/Creatinine DL <= 20 mg/L (U) [Mass ratio] 29.8 mg/g Invalid Interpretation Code 0.0-30.0 [facility] Creatinine (U) [Mass/Vol] 74.90 mg/dL Invalid Interpretation Code Not Estab. mg/dL [facility] Metabolic Panelon 08-28-2019 Anion gap [Moles/Vol] 16 mmol/L Invalid Interpretation Code 10-20 [facility] Calcium [Mass/Vol] 9.70 mg/dL Invalid Interpretation Code 8.5-10.8 [facility] Chloride [Moles/Vol] 100.0 mmol/L Invalid Interpretation Code 100-112 [facility] CO2 [Moles/Vol] 27.0 mmol/L Invalid Interpretation Code 23-30 [facility] Creatinine [Mass/Vol] 1.10 mg/dL Invalid Interpretation Code 0.5-1.5 [facility] GFR/1.73 sq M predicted among non-blacks MDRD (S/P/Bld) [Vol rate/Area] 70 mL/min/{1.73_m2} Invalid Interpretation Code [facility] Glucose [Mass/Vol] 137.0 mg/dL Invalid Interpretation Code 80-117 [facility] Potassium [Moles/Vol] 4.0 mmol/L Invalid Interpretation Code 3.5-5.3 [facility] Sodium [Moles/Vol] 139.0 mmol/L Invalid Interpretation Code 135-148 [facility] Urea nitrogen [Mass/Vol] 26.0 mg/dL Invalid Interpretation Code 7-25 [facility] Urea nitrogen/Creatinine [Mass ratio] 24 mg/mg Invalid Interpretation Code 6-20 [facility] Laboratory - Chemistry and C hemistry - challengeon 08-21-2019 Bilirubin Ql (U) Negative Invalid Interpretation Code Negative [facility] Ketones Ql (U) Negative Invalid Interpretation Code Negative [facility] Urobilinogen (U) [Mass/Vol] normal Invalid Interpretation Code normal [facility] Laboratory - Urinalysison Nitrite Ql (U) Negative Invalid Interpretation Code Negative [facility] Metabolic Panelon 08-21-2019 Anion gap [Moles/Vol] 18 mmol/L Invalid Interpretation Code 10-20 [facility] Calcium [Mass/Vol] 9.70 mg/dL Invalid Interpretation Code 8.5-10.8 [facility] Chloride [Moles/Vol] 97.0 mmol/L Invalid Interpretation Code 100-112 [facility] CO2 [Moles/Vol] 25.0 mmol/L Invalid Interpretation Code 23-30 [facility] Creatinine [Mass/Vol] 2.30 mg/dL Invalid Interpretation Code 0.5-1.5 [facility] GFR/1.73 sq M predicted among non-blacks MDRD (S/P/Bld) [Vol rate/Area] 30 mL/min/{1.73_m2} Invalid Interpretation Code [facility] Glucose [Mass/Vol] 231.0 mg/dL Invalid Interpretation Code 80-117 [facility] HbA1c (Bld) [Mass fraction] 7.60 % Invalid Interpretation Code 4.3-6.3 [facility] Potassium [Moles/Vol] 4.50 mmol/L Invalid Interpretation Code 3.5-5.3 [facility] Sodium [Moles/Vol] 135.0 mmol/L Invalid Interpretation Code 135-148 [facility] Urea nitrogen [Mass/Vol] 34.0 mg/dL Invalid Interpretation Code 7-25 [facility] Urea nitrogen/Creatinine [Mass ratio] 15 mg/mg Invalid Interpretation Code 6-20 [facility] Otheron 08-21-2019 Bilirubin Ql (U) Negative Negative [facility] Gamma glutamyl transferase [Catalytic activity/Vol] 72 U/L Invalid Interpretation Code 7-51 [facility] Glucose Test strip (U) [Mass/Vol] 4+ Invalid Interpretation Code Negative [facility] Hemoglobin Ql (U) Trace Invalid Interpretation Code Negative [facility] Nitrite Ql (U) Negative Negative [facility] pH (U) 5 [pH] Invalid Interpretation Code 5.0-9.0 [facility] Protein Ql (U) 1+ Invalid Interpretation Code Negative [facility] Urobilinogen Test strip (U) [Mass/Vol] normal normal [facility] 171 [facility] 171.0 mg/dL Invalid Interpretation Code [facility] Urinalysison 08-21-2019 Clarity (U) Clear Invalid Interpretation Code Clear [facility] Color (U) yellow Invalid Interpretation Code yellow [facility] Ketones Ql (U) Negative Negative [facility] Leukocyte esterase Test strip Ql (U) Trace Invalid Interpretation Code Negative [email or web address] Specific gravity (U) [Rel density] 1.015 Invalid Interpretation Code 1.003-1.030 [email or web address] Cardiacon 05-22-2019 Cholesterol [Mass/Vol] 164.0 mg/dL Invalid Interpretation Code 0-200 [facility] Cholesterol in HDL [Mass/Vol] 33.0 mg/dL Invalid Interpretation Code 36-100 [facility] Cholesterol in LDL [Mass/Vol] 89.0 mg/dL Invalid Interpretation Code 0-130 [facility] Triglyceride [Mass/Vol] 208.0 mg/dL Invalid Interpretation Code 30-150 [facility] Hematologyon 05-22-2019 Hematocrit (Bld) [Volume fraction] 44.80 % Invalid Interpretation Code 37.8-51.0 [facility] Hemoglobin (Bld) [Mass/Vol] 15.30 g/dL Invalid Interpretation Code 12.6-17.0 [facility] MCH (RBC) [Entitic mass] 31.40 pg Invalid Interpretation Code 25.7-33.8 [facility] MCV (RBC) [Entitic vol] 92.0 fL Invalid Interpretation Code 81.0-100.2 [facility] Platelets (Bld) [#/Vol] 316.0 10*3/uL Invalid Interpretation Code 150-400 [facility] RBC (Bld) [#/Vol] 4.870 10*6/uL Invalid Interpretation Code 4.34-5.61 [facility] WBC (Bld) [#/Vol] 8.50 10*3/uL Invalid Interpretation Code 3.9-10.3 [facility] Imm/Pathon 05-22-2019 Prostate specific Ag [Mass/Vol] 0.59 ng/mL Invalid Interpretation Code 0.00-4.00 [facility] Laboratory - Chemistry and C hemistry - challengeon 05-22-2019 Bilirubin Ql (U) Negative Invalid Interpretation Code Negative [facility] Ketones Ql (U) Negative Invalid Interpretation Code Negative [facility] Urobilinogen (U) [Mass/Vol] normal Invalid Interpretation Code normal [facility] Laboratory - Hematology and Cell countson 05-22-2019 Hemoglobin Ql (U) Negative Invalid Interpretation Code Negative [facility] Laboratory - Urinalysison Leukocyte esterase Test strip Ql (U) Negative Invalid Interpretation Code Negative [facility] Nitrite Ql (U) Negative Invalid Interpretation Code Negative [facility] Protein Ql (U) Negative Invalid Interpretation Code Negative [facility] Metabolic Panelon 05-22-2019 Albumin [Mass/Vol] 4.30 g/dL Invalid Interpretation Code 3.7-4.5 [facility] ALP [Catalytic activity/Vol] 79.0 U/L Invalid Interpretation Code 31-155 [facility] ALT [Catalytic activity/Vol] 23.0 U/L Invalid Interpretation Code 0-50 [facility] Anion gap [Moles/Vol] 16 mmol/L Invalid Interpretation Code 10-20 [facility] AST [Catalytic activity/Vol] 15.0 U/L Invalid Interpretation Code 0-40 [facility] Bilirubin [Mass/Vol] 0.40 mg/dL Invalid Interpretation Code 0.0-1.0 [facility] Calcium [Mass/Vol] 9.60 mg/dL Invalid Interpretation Code 8.5-10.8 [facility] Chloride [Moles/Vol] 97.0 mmol/L Invalid Interpretation Code 100-112 [facility] CO2 [Moles/Vol] 27.0 mmol/L Invalid Interpretation Code 23-30 [facility] Creatinine [Mass/Vol] 1.10 mg/dL Invalid Interpretation Code 0.5-1.5 [facility] GFR/1.73 sq M predicted among non-blacks MDRD (S/P/Bld) [Vol rate/Area] 70 mL/min/{1.73_m2} Invalid Interpretation Code [facility] Glucose [Mass/Vol] 101.0 mg/dL Invalid Interpretation Code 80-117 [facility] Potassium [Moles/Vol] 4.30 mmol/L Invalid Interpretation Code 3.5-5.3 [facility] Protein [Mass/Vol] 7.60 g/dL Invalid Interpretation Code 6.3-7.9 [facility] Sodium [Moles/Vol] 136.0 mmol/L Invalid Interpretation Code 135-148 [facility] Urea nitrogen [Mass/Vol] 21.0 mg/dL Invalid Interpretation Code 7-25 [facility] Urea nitrogen/Creatinine [Mass ratio] 19 mg/mg Invalid Interpretation Code 6-20 [facility] Otheron 05-22-2019 Albumin/Globulin [Mass ratio] 1.3 {ratio} Invalid Interpretation Code 1.0-2.4 [facility] Bilirubin Ql (U) Negative Negative [facility] Cholesterol in VLDL [Mass/Vol] 42.0 mg/dL Invalid Interpretation Code 0-39 [email or web address] Cholesterol.total/C holesterol in HDL [Mass ratio] 5 {ratio} Invalid Interpretation Code [facility] Collection time (Andrei) [Date/time] 1:00 pm Invalid Interpretation Code [facility] Erythrocyte distribution width (RBC) [Ratio] 12.40 % Invalid Interpretation Code 11.5-15.5 [facility] Glucose Test strip (U) [Mass/Vol] 4+ Invalid Interpretation Code Negative [facility] Hemoglobin Ql (U) Negative Negative [email or web address] MCHC (RBC) [Mass/Vol] 34.20 g/dL Invalid Interpretation Code 32.0-36.0 [facility] Nitrite Ql (U) Negative Negative [facility] pH (U) 5 [pH] Invalid Interpretation Code 5.0-9.0 [facility] Platelet mean volume (Bld) [Entitic vol] 9.40 fL Invalid Interpretation Code 8.3-11.5 [facility] Protein Ql (U) Negative Negative [facility] Urobilinogen Test strip (U) [Mass/Vol] normal normal [facility] 23.0 U/L 0-50 [facility] Urinalysison 05-22-2019 Clarity (U) Clear Invalid Interpretation Code Clear [facility] Color (U) yellow Invalid Interpretation Code yellow [email or web address] Ketones Ql (U) Negative Negative [facility] Leukocyte esterase Test strip Ql (U) Negative Negative [facility] Specific gravity (U) [Rel density] 1.015 Invalid Interpretation Code 1.003-1.030 [facility] Laboratory - Chemistry and C hemistry - challengeon 04-09-2019 Bilirubin Ql (U) Negative Invalid Interpretation Code Negative [facility] Urobilinogen (U) [Mass/Vol] normal Invalid Interpretation Code normal [facility] Laboratory - Hematology and Cell countson 04-09-2019 Hemoglobin Ql (U) Negative Invalid Interpretation Code Negative [facility] Laboratory - Urinalysison Leukocyte esterase Test strip Ql (U) Negative Invalid Interpretation Code Negative [facility] Nitrite Ql (U) Negative Invalid Interpretation Code Negative [facility] Metabolic Panelon 04-09-2019 Albumin [Mass/Vol] 4.50 g/dL Invalid Interpretation Code 3.7-4.5 [facility] ALP [Catalytic activity/Vol] 73.0 U/L Invalid Interpretation Code 31-155 [facility] ALT [Catalytic activity/Vol] 47.0 U/L Invalid Interpretation Code 0-50 [facility] Anion gap [Moles/Vol] 17 mmol/L Invalid Interpretation Code 10-20 [facility] AST [Catalytic activity/Vol] 41.0 U/L Invalid Interpretation Code 0-40 [facility] Bilirubin [Mass/Vol] 0.50 mg/dL Invalid Interpretation Code 0.0-1.0 [facility] Calcium [Mass/Vol] 9.30 mg/dL Invalid Interpretation Code 8.5-10.8 [facility] Chloride [Moles/Vol] 97.0 mmol/L Invalid Interpretation Code 100-112 [facility] CO2 [Moles/Vol] 27.0 mmol/L Invalid Interpretation Code 23-30 [facility] Creatinine [Mass/Vol] 0.90 mg/dL Invalid Interpretation Code 0.5-1.5 [facility] GFR/1.73 sq M predicted among non-blacks MDRD (S/P/Bld) [Vol rate/Area] 88 mL/min/{1.73_m2} Invalid Interpretation Code [facility] Glucose [Mass/Vol] 186.0 mg/dL Invalid Interpretation Code 80-117 [facility] HbA1c (Bld) [Mass fraction] 7.70 % Invalid Interpretation Code 4.3-6.3 [facility] Potassium [Moles/Vol] 4.0 mmol/L Invalid Interpretation Code 3.5-5.3 [facility] Protein [Mass/Vol] 7.60 g/dL Invalid Interpretation Code 6.3-7.9 [facility] Sodium [Moles/Vol] 137.0 mmol/L Invalid Interpretation Code 135-148 [facility] Urea nitrogen [Mass/Vol] 16.0 mg/dL Invalid Interpretation Code 7-25 [facility] Urea nitrogen/Creatinine [Mass ratio] 18 mg/mg Invalid Interpretation Code 6-20 [facility] Otheron 04-09-2019 Albumin (U) [Mass/Vol] 48.5 Invalid Interpretation Code <17.0 [facility] Albumin/Globulin [Mass ratio] 1.5 {ratio} Invalid Interpretation Code 1.0-2.4 [facility]l (U) [facility] [place] [employer] Gamma glutamyl transferase [Catalytic activity/Vol] 52 U/L Invalid Interpretation Code 7-51 [facility] Glucose Test strip (U) [Mass/Vol] 4+ Invalid Interpretation Code Negative [facility] Hemoglobin Ql (U) Negative Negative [facility] rd [place] [employer] Nitrite Ql (U) Negative Negative [facility] pH (U) 6 [pH] Invalid Interpretation Code 5.0-9.0 [facility] Protein Ql (U) 1+ Invalid Interpretation Code Negative [facility] Urobilinogen Test strip (U) [Mass/Vol] normal normal [facility] 174 [facility] 47.0 U/L 0-50 [facility] 174.0 mg/dL Invalid Interpretation Code [facility] [place] Urinalysison 04-09-2019 Albumin/Creatinine DL <= 20 mg/L (U) [Mass ratio] 70.7 mg/g Invalid Interpretation Code 0.0-30.0 [facility] Clarity (U) clear Invalid Interpretation Code Clear [facility] Color (U) yellow Invalid Interpretation Code yellow [facility] Creatinine (U) [Mass/Vol] 68.60 mg/dL Invalid Interpretation Code Not Estab. mg/dL [facility] [place] Ketones Ql (U) 2+ Invalid Interpretation Code Negative [facility] Leukocyte esterase Test strip Ql (U) Negative Negative [facility] Specific gravity (U) [Rel density] 1.010 Invalid Interpretation Code 1.003-1.030 [facility] Laboratory - Chemistry and C hemistry - challengeon 12-08-2018 Bilirubin Ql (U) Negative Invalid Interpretation Code Negative [facility] Urobilinogen (U) [Mass/Vol] normal Invalid Interpretation Code normal [facility] Laboratory - Hematology and Cell countson 12-08-2018 Hemoglobin Ql (U) Negative Invalid Interpretation Code Negative [facility] Laboratory - Urinalysison Leukocyte esterase Test strip Ql (U) Negative Invalid Interpretation Code Negative [facility] Nitrite Ql (U) Negative Invalid Interpretation Code Negative [facility] Protein Ql (U) Negative Invalid Interpretation Code Negative [facility] Metabolic Panelon 12-08-2018 Glucose mass conc 255.0 mg/dL Invalid Interpretation Code 80-117 [facility] Hemoglobin A1c/Hemoglobin.tota l mass fraction (Bld) 8.80 % Invalid Interpretation Code 4.3-6.3 [email or web address] Otheron 12-08-2018 Bilirubin Ql (U) Negative [facility] [place] Glucose Test strip mass conc (U) 4+ Invalid Interpretation Code Negative [facility] Hemoglobin Ql (U) Negative Negative [facility] [place] Nitrite Ql (U) Negative Negative [facility] pH (U) 6 [pH] Invalid Interpretation Code 5.0-9.0 [facility] Protein Ql (U) Negative Negative [facility] Urobilinogen Test strip mass conc (U) normal normal [facility] 206 [facility] 206.0 mg/dL Invalid Interpretation Code [facility] Urinalysison 12-08-2018 Clarity Nom (U) Clear Invalid Interpretation Code Clear [facility] Color Nom (U) yellow Invalid Interpretation Code yellow [facility] Ketones Ql (U) 1+ Invalid Interpretation Code Negative [facility] Leukocyte esterase Test strip Ql (U) Negative Negative [facility] Specific gravity Relative Density (U) 1.015 Invalid Interpretation Code 1.003-1.030 [facility] Cardiacon 08-23-2018 Cholesterol in HDL mass conc 35.0 mg/dL Invalid Interpretation Code 36-100 [facility] Cholesterol in LDL mass conc 90.0 mg/dL Invalid Interpretation Code 0-130 [facility] Cholesterol mass conc 204.0 mg/dL Invalid Interpretation Code 0-200 [facility] Triglyceride mass conc 396.0 mg/dL Invalid Interpretation Code 30-150 [facility] Hematologyon 08-23-2018 Hematocrit Volume Fraction (Bld) 44.0 % Invalid Interpretation Code 37.8-51.0 [facility] Hemoglobin mass conc (Bld) 15.20 g/dL Invalid Interpretation Code 12.6-17.0 [facility] MCH Entitic mass (RBC) 32.0 pg Invalid Interpretation Code 25.7-33.8 [facility] MCV Entitic volume (RBC) 92.60 fL Invalid Interpretation Code 81.0-100.2 [facility] Platelets #/vol (Bld) 244.0 10*3/uL Invalid Interpretation Code 150-400 [facility] RBC #/vol (Bld) 4.750 10*6/uL Invalid Interpretation Code 4.34-5.61 [facility] WBC #/vol (Bld) 6.80 10*3/uL Invalid Interpretation Code 3.9-10.3 [facility] Imm/Pathon 08-23-2018 Prostate specific Ag mass conc 0.61 ng/mL Invalid Interpretation Code 0.00-4.00 [facility] Metabolic Panelon 08-23-2018 Albumin mass conc 4.50 g/dL Invalid Interpretation Code 3.7-4.5 [facility] ALP enzyme act/vol 75.0 U/L Invalid Interpretation Code 31-155 [facility] ALT enzyme act/vol 66.0 U/L Invalid Interpretation Code 0-50 [facility] Anion gap molar conc 20 mmol/L Invalid Interpretation Code 10-20 [facility] AST enzyme act/vol 39.0 U/L Invalid Interpretation Code 0-40 [facility] Bilirubin mass conc 0.40 mg/dL Invalid Interpretation Code 0.0-1.0 [facility] Calcium mass conc 9.40 mg/dL Invalid Interpretation Code 8.5-10.8 [facility] Chloride molar conc 96 mmol/L Invalid Interpretation Code 100-112 [facility] CO2 molar conc 28 mmol/L Invalid Interpretation Code 23-30 [facility] Creatinine mass conc 0.90 mg/dL Invalid Interpretation Code 0.5-1.5 [facility] GFR/1.73 sq M predicted among non-blacks MDRD vol rate/area (S/P/Bld) 88 mL/min/{1.73_m2} Invalid Interpretation Code [facility] Glucose mass conc 328.0 mg/dL Invalid Interpretation Code 80-117 [facility] Hemoglobin A1c/Hemoglobin.tota l mass fraction (Bld) 10.50 % Invalid Interpretation Code 4.3-6.3 [facility] Potassium molar conc 4.1 mmol/L Invalid Interpretation Code 3.5-5.3 [facility] Protein mass conc 7.60 g/dL Invalid Interpretation Code 6.3-7.9 [facility] Sodium molar conc 140 mmol/L Invalid Interpretation Code 135-148 [facility] Urea nitrogen mass conc 13.0 mg/dL Invalid Interpretation Code 7-25 [facility] Urea nitrogen/Creatinine mass ratio 14 mg/mg Invalid Interpretation Code 6-20 [facility] No Panel Informationon 08-23 1175 Invalid Interpretation Code 243-101 [facility] Otheron 08-23-2018 Albumin mass conc (U) 64.2 Invalid Interpretation Code <17.0 [facility] Albumin/Globulin mass ratio 1.5 {ratio} Invalid Interpretation Code 1.0-2.4 [facility] Cholesterol in VLDL mass conc 79.0 mg/dL Invalid Interpretation Code 0-39 [facility] Cholesterol.total/C holesterol in HDL mass ratio 6 {ratio} Invalid Interpretation Code [facility] Cobalamin (Vitamin B12) mass conc 1175 pg/mL 243-911 [facility] Erythrocyte distribution width Ratio (RBC) 11.70 % Invalid Interpretation Code 11.5-15.5 [facility] MCHC mass conc (RBC) 34.50 g/dL Invalid Interpretation Code 32.0-36.0 [facility] Platelet mean volume Entitic volume (Bld) 9.80 fL Invalid Interpretation Code 8.3-11.5 [facility] 255 [facility] 18.9 Invalid Interpretation Code >5.4 [facility] 255.0 mg/dL Invalid Interpretation Code [facility] 66.0 U/L 0-50 [facility] Urinalysison 08-23-2018 Albumin/Creatinine DL <= 20 mg/L mass ratio (U) 334.4 mg/g Invalid Interpretation Code 0.0-30.0 [facility] Creatinine mass conc (U) 19.20 mg/dL Invalid Interpretation Code Not Estab. mg/dL [facility] Laboratory - Urinalysison Glucose Test strip (U) [Mass/Vol] Negative Invalid Interpretation Code negative [facility] Protein (U) [Mass/Vol] Negative Invalid Interpretation Code negative [facility] Metabolic Panelon 06-12-2018 Glucose mass conc 195.0 mg/dL Invalid Interpretation Code 80-117 [facility] Hemoglobin A1c/Hemoglobin.tota l mass fraction (Bld) 9.50 % Invalid Interpretation Code 4.3-6.3 [facility] Otheron 06-12-2018 Glucose Test strip mass conc (U) Negative negative [facility] 226 [facility] 226.0 mg/dL Invalid Interpretation Code [facility] Urinalysison 06-12-2018 Protein mass conc (U) Negative negative [facility] Cardiacon 02-22-2018 Cholesterol in HDL mass conc 30.0 mg/dL Invalid Interpretation Code 36-100 [facility] Cholesterol mass conc 263.0 mg/dL Invalid Interpretation Code 0-200 [facility] Triglyceride mass conc 797.0 mg/dL Invalid Interpretation Code 30-150 [facility] Metabolic Panelon 02-22-2018 Albumin mass conc 4.50 g/dL Invalid Interpretation Code 3.7-4.5 [facility] ALP enzyme act/vol 83.0 U/L Invalid Interpretation Code 31-155 [facility] ALT enzyme act/vol 49.0 U/L Invalid Interpretation Code 0-50 [facility] Anion gap molar conc 20 mmol/L Invalid Interpretation Code 10-20 [facility] AST enzyme act/vol 22.0 U/L Invalid Interpretation Code 0-40 [facility] Bilirubin mass conc 0.70 mg/dL Invalid Interpretation Code 0.0-1.0 [facility] Calcium mass conc 9.70 mg/dL Invalid Interpretation Code 8.5-10.8 [facility] Chloride molar conc 93 mmol/L Invalid Interpretation Code 100-112 [facility] CO2 molar conc 27 mmol/L Invalid Interpretation Code 23-30 [facility] Creatinine mass conc 0.90 mg/dL Invalid Interpretation Code 0.5-1.5 [facility] GFR/1.73 sq M predicted among non-blacks MDRD vol rate/area (S/P/Bld) 88 mL/min/{1.73_m2} Invalid Interpretation Code [facility] Glucose mass conc 323.0 mg/dL Invalid Interpretation Code 80-117 [facility] Hemoglobin A1c/Hemoglobin.tota l mass fraction (Bld) 10.0 % Invalid Interpretation Code 4.3-6.3 [facility] Potassium molar conc 4.0 mmol/L Invalid Interpretation Code 3.5-5.3 [facility] Protein mass conc 7.70 g/dL Invalid Interpretation Code 6.3-7.9 [facility] Sodium molar conc 136 mmol/L Invalid Interpretation Code 135-148 [facility] Urea nitrogen mass conc 13.0 mg/dL Invalid Interpretation Code 7-25 [facility] Urea nitrogen/Creatinine mass ratio 14 mg/mg Invalid Interpretation Code 6-20 [facility] Otheron 02-22-2018 Albumin mass conc (U) 141.8 Invalid Interpretation Code <17.0 [facility] Albumin/Globulin mass ratio 1.4 {ratio} Invalid Interpretation Code 1.0-2.4 [facility] Cholesterol in VLDL mass conc 159.0 mg/dL Invalid Interpretation Code 0-39 [facility] Cholesterol.total/C holesterol in HDL mass ratio 9 {ratio} Invalid Interpretation Code [facility] 240 [facility] 49.0 U/L 0-50 [facility] 240.0 mg/dL Invalid Interpretation Code [facility] Urinalysison 02-22-2018 Albumin/Creatinine DL <= 20 mg/L mass ratio (U) 179.5 mg/g Invalid Interpretation Code 0.0-30.0 [facility] Creatinine mass conc (U) 79.0 mg/dL Invalid Interpretation Code Not Estab. mg/dL [facility] Laboratory - Chemistry and C hemistry - challengeon 11-25-2017 Bilirubin Ql (U) Negative Invalid Interpretation Code Negative [facility] Ketones Ql (U) Negative Invalid Interpretation Code Negative [facility] Urobilinogen (U) [Mass/Vol] normal Invalid Interpretation Code normal [facility] Laboratory - Hematology and Cell countson 11-25-2017 Hemoglobin Ql (U) Negative Invalid Interpretation Code Negative [facility] Laboratory - Urinalysison Leukocyte esterase Test strip Ql (U) Negative Invalid Interpretation Code Negative [facility] Nitrite Ql (U) Negative Invalid Interpretation Code Negative [facility] Protein Ql (U) Negative Invalid Interpretation Code Negative [facility] Metabolic Panelon 11-25-2017 Glucose mass conc 350.0 mg/dL Invalid Interpretation Code 80-117 [facility] Hemoglobin A1c/Hemoglobin.tota l mass fraction (Bld) 8.60 % Invalid Interpretation Code 4.3-6.3 [place] [facility] [place] Otheron 11-25-2017 Bilirubin Ql (U) Negative Negative [facility] [place] Glucose Test strip mass conc (U) 4+ Invalid Interpretation Code Negative [facility] Hemoglobin Ql (U) Negative Negative [facility] [place] Nitrite Ql (U) Negative Negative [facility] pH (U) 5 [pH] Invalid Interpretation Code 4.5-7.8 [facility] Protein Ql (U) Negative Negative [facility] Urobilinogen Test strip mass conc (U) normal normal [facility] 200 [facility] 200.0 mg/dL Invalid Interpretation Code [facility] Urinalysison 11-25-2017 Clarity Nom (U) Clear Invalid Interpretation Code Clear [facility] Color Nom (U) yellow Invalid Interpretation Code yellow [facility] Ketones Ql (U) Negative Negative [facility] Leukocyte esterase Test strip Ql (U) Negative Negative [facility] Specific gravity Relative Density (U) 1.010 Invalid Interpretation Code 1.003-1.029 [facility] Cardiacon 08-24-2017 Cholesterol in HDL mass conc 39.0 mg/dL Invalid Interpretation Code 36-100 [facility] Cholesterol in LDL mass conc 138.0 mg/dL Invalid Interpretation Code 0-130 [facility] Cholesterol mass conc 237.0 mg/dL Invalid Interpretation Code 0-200 [facility] Triglyceride mass conc 301.0 mg/dL Invalid Interpretation Code 30-150 [facility] Metabolic Panelon 08-24-2017 ALT enzyme act/vol 52.0 U/L Invalid Interpretation Code 0-50 [facility] Anion gap molar conc 17 mmol/L Invalid Interpretation Code 10-20 [facility] AST enzyme act/vol 38.0 U/L Invalid Interpretation Code 0-40 [facility] Calcium mass conc 9.50 mg/dL Invalid Interpretation Code 8.5-10.8 [facility] Chloride molar conc 98 mmol/L Invalid Interpretation Code 100-112 [facility] CO2 molar conc 29 mmol/L Invalid Interpretation Code 23-30 [facility] Creatinine mass conc 0.90 mg/dL Invalid Interpretation Code 0.5-1.5 [facility] GFR/1.73 sq M predicted among non-blacks MDRD vol rate/area (S/P/Bld) 88 mL/min/{1.73_m2} Invalid Interpretation Code [facility] Glucose mass conc 146.0 mg/dL Invalid Interpretation Code 80-117 [facility] Hemoglobin A1c/Hemoglobin.tota l mass fraction (Bld) 8.40 % Invalid Interpretation Code 4.3-6.3 [facility] Potassium molar conc 3.8 mmol/L Invalid Interpretation Code 3.5-5.3 [facility] Sodium molar conc 140 mmol/L Invalid Interpretation Code 135-148 [facility] Urea nitrogen mass conc 16.0 mg/dL Invalid Interpretation Code 7-25 [facility] Urea nitrogen/Creatinine mass ratio 18 mg/mg Invalid Interpretation Code 6-20 [facility] Otheron 08-24-2017 Albumin mass conc (U) 160.5 Invalid Interpretation Code <17.0 [facility] Cholesterol in VLDL mass conc 60.0 mg/dL Invalid Interpretation Code 0-39 [facility] Cholesterol.total/C holesterol in HDL mass ratio 6 {ratio} Invalid Interpretation Code [facility] 194 [facility] 194.0 mg/dL Invalid Interpretation Code [facility] 52.0 U/L 0-50 [facility] Urinalysison 08-24-2017 Albumin/Creatinine DL <= 20 mg/L mass ratio (U) 105.5 mg/g Invalid Interpretation Code 0.0-30.0 [facility] Creatinine mass conc (U) 152.10 mg/dL Invalid Interpretation Code Not Estab. mg/dL [facility] Laboratory - Urinalysison Protein (U) [Mass/Vol] Negative Invalid Interpretation Code negative [facility] Metabolic Panelon 08-01-2017 Glucose mass conc 259.0 mg/dL Invalid Interpretation Code 80-117 [facility] Hemoglobin A1c/Hemoglobin.tota l mass fraction (Bld) 8.30 % Invalid Interpretation Code 4.3-6.3 [facility] Otheron 08-01-2017 Glucose Test strip mass conc (U) trace Invalid Interpretation Code negative [facility] pH (U) 6.0 [pH] Invalid Interpretation Code 4.5-7.8 [facility] 192 [facility] 192.0 mg/dL Invalid Interpretation Code [facility] Urinalysison 08-01-2017 Protein mass conc (U) Negative negative [facility] Laboratory - Chemistry and C hemistry - challengeon 03-29-2017 Bilirubin Ql (U) Negative Invalid Interpretation Code Negative [facility] Ketones Ql (U) Negative Invalid Interpretation Code Negative [facility] Urobilinogen (U) [Mass/Vol] normal Invalid Interpretation Code normal [facility] Laboratory - Hematology and Cell countson 03-29-2017 Hemoglobin Ql (U) Negative Invalid Interpretation Code Negative [facility] Laboratory - Urinalysison Leukocyte esterase Test strip Ql (U) Negative Invalid Interpretation Code Negative [facility] Nitrite Ql (U) Negative Invalid Interpretation Code Negative [facility] Protein Ql (U) Negative Invalid Interpretation Code Negative [facility] Metabolic Panelon 03-29-2017 Glucose mass conc 284.0 mg/dL Invalid Interpretation Code 80-117 [facility] Hemoglobin A1c/Hemoglobin.tota l mass fraction (Bld) 8.0 % Invalid Interpretation Code 4.3-6.3 [facility] Otheron 03-29-2017 Albumin mass conc (U) < 12.0 Invalid Interpretation Code < 17.0 ug/mL [facility] [place] Bilirubin Ql (U) Negative Negative [facility] [place] [employer] Glucose Test strip mass conc (U) 4+ Invalid Interpretation Code Negative [facility] [place] Hemoglobin Ql (U) Negative Negative [facility] rd [place] [employer] Nitrite Ql (U) Negative Negative [facility] [place] pH (U) 6 [pH] Invalid Interpretation Code 4.5-7.8 [facility] [place] Protein Ql (U) Negative Negative [facility] [employer] Urobilinogen Test strip mass conc (U) normal normal [facility] [place] 183 [facility] [place] 183.0 mg/dL Invalid Interpretation Code [facility] [place] Urinalysison 03-29-2017 Clarity Nom (U) clear Invalid Interpretation Code Clear [facility] [place] Color Nom (U) yellow Invalid Interpretation Code yellow [facility] [place] Creatinine mass conc (U) 14.20 mg/dL Invalid Interpretation Code Not Estab. mg/dL [facility] [place] Ketones Ql (U) Negative Negative [facility] [place] Leukocyte esterase Test strip Ql (U) Negative Negative [facility] [place] Specific gravity Relative Density (U) 1.015 Invalid Interpretation Code 1.003-1.029 [facility] Laboratory - Chemistry and C hemistry - challengeon 11-23-2016 Bilirubin Ql (U) Negative Invalid Interpretation Code Negative [facility] Ketones Ql (U) Negative Invalid Interpretation Code Negative [facility] Urobilinogen (U) [Mass/Vol] normal Invalid Interpretation Code normal [facility] Laboratory - Urinalysison Leukocyte esterase Test strip Ql (U) Negative Invalid Interpretation Code Negative [facility] Nitrite Ql (U) Negative Invalid Interpretation Code Negative [facility] Metabolic Panelon 11-23-2016 Glucose mass conc 195.0 mg/dL Invalid Interpretation Code 80-117 [facility] Hemoglobin A1c/Hemoglobin.tota l mass fraction (Bld) 6.90 % Invalid Interpretation Code 4.3-6.3 [facility] Otheron 11-23-2016 Bilirubin Ql (U) Negative Negative [facility] [employer] Glucose Test strip mass conc (U) 4+ Invalid Interpretation Code Negative [facility] Hemoglobin Ql (U) Trace Invalid Interpretation Code Negative [facility] Nitrite Ql (U) Negative Negative [facility] pH (U) 6 [pH] Invalid Interpretation Code 4.5-7.8 [facility] Protein Ql (U) 1+ Invalid Interpretation Code Negative [facility] Urobilinogen Test strip mass conc (U) normal normal [facility] 151 [facility] 151.0 mg/dL Invalid Interpretation Code [facility] Urinalysison 11-23-2016 Clarity Nom (U) clear Invalid Interpretation Code Clear [facility] Color Nom (U) yellow Invalid Interpretation Code yellow [facility] Ketones Ql (U) Negative Negative [facility] Leukocyte esterase Test strip Ql (U) Negative Negative [facility] Specific gravity Relative Density (U) 1.010 Invalid Interpretation Code 1.003-1.029 [facility] Cardiacon 09-21-2016 Cholesterol in HDL mass conc 32.0 mg/dL Invalid Interpretation Code 36-100 [facility] Cholesterol in LDL mass conc 80.0 mg/dL Invalid Interpretation Code 0-130 [facility] Cholesterol mass conc 180.0 mg/dL Invalid Interpretation Code 0-200 [facility] Triglyceride mass conc 340.0 mg/dL Invalid Interpretation Code 30-150 [facility] Metabolic Panelon 09-21-2016 ALT enzyme act/vol 48.0 U/L Invalid Interpretation Code 0-50 [facility] Anion gap molar conc 20 mmol/L Invalid Interpretation Code 10-20 [facility] AST enzyme act/vol 22.0 U/L Invalid Interpretation Code 0-40 [facility] Calcium mass conc 9.70 mg/dL Invalid Interpretation Code 8.5-10.8 [facility] Chloride molar conc 100 mmol/L Invalid Interpretation Code 100-112 [facility] CO2 molar conc 26 mmol/L Invalid Interpretation Code 23-30 [facility] Creatinine mass conc 1.10 mg/dL Invalid Interpretation Code 0.5-1.5 [facility] GFR/1.73 sq M predicted among non-blacks MDRD vol rate/area (S/P/Bld) 70 mL/min/{1.73_m2} Invalid Interpretation Code [facility] Glucose mass conc 158.0 mg/dL Invalid Interpretation Code 80-117 [facility] Hemoglobin A1c/Hemoglobin.tota l mass fraction (Bld) 7.10 % Invalid Interpretation Code 4.3-6.3 [facility] Potassium molar conc 4.1 mmol/L Invalid Interpretation Code 3.5-5.3 [facility] Sodium molar conc 142 mmol/L Invalid Interpretation Code 135-148 [facility] Urea nitrogen mass conc 18.0 mg/dL Invalid Interpretation Code 7-25 [facility] Urea nitrogen/Creatinine mass ratio 16 mg/mg Invalid Interpretation Code 6-20 [facility] Otheron 09-21-2016 Cholesterol in VLDL mass conc 68.0 mg/dL Invalid Interpretation Code 0-39 [facility] Cholesterol.total/C holesterol in HDL mass ratio 6 {ratio} Invalid Interpretation Code [facility] 157 [facility] 48.0 U/L 0-50 [facility] 157.0 mg/dL Invalid Interpretation Code [facility] Laboratory - Chemistry and C hemistry - challengeon 07-27-2016 Bilirubin Ql (U) Negative Invalid Interpretation Code Negative [facility] Urobilinogen (U) [Mass/Vol] normal Invalid Interpretation Code normal [facility] Laboratory - Hematology and Cell countson 07-27-2016 Hemoglobin Ql (U) Negative Invalid Interpretation Code Negative [facility] Laboratory - Urinalysison Leukocyte esterase Test strip Ql (U) Negative Invalid Interpretation Code Negative [facility] Nitrite Ql (U) Negative Invalid Interpretation Code Negative [facility] Protein Ql (U) Negative Invalid Interpretation Code Negative [facility] Metabolic Panelon 07-27-2016 Anion gap molar conc 19 mmol/L Invalid Interpretation Code 10-20 [facility] Calcium mass conc 9.90 mg/dL Invalid Interpretation Code 8.5-10.8 [facility] Chloride molar conc 96 mmol/L Invalid Interpretation Code 100-112 [facility] CO2 molar conc 29 mmol/L Invalid Interpretation Code 23-30 [facility] Creatinine mass conc 1.10 mg/dL Invalid Interpretation Code 0.5-1.5 [facility] GFR/1.73 sq M predicted among non-blacks MDRD vol rate/area (S/P/Bld) 70 mL/min/{1.73_m2} Invalid Interpretation Code [facility] Glucose mass conc 166.0 mg/dL Invalid Interpretation Code 80-117 [facility] Hemoglobin A1c/Hemoglobin.tota l mass fraction (Bld) 7.50 % Invalid Interpretation Code 4.3-6.3 [facility] Potassium molar conc 3.9 mmol/L Invalid Interpretation Code 3.5-5.3 [facility] Sodium molar conc 140 mmol/L Invalid Interpretation Code 135-148 [facility] Urea nitrogen mass conc 14.0 mg/dL Invalid Interpretation Code 7-25 [facility] Urea nitrogen/Creatinine mass ratio 13 mg/mg Invalid Interpretation Code 6-20 [facility] Otheron 07-27-2016 Albumin mass conc (U) < 12.0 Invalid Interpretation Code < 17.0 ug/mL [facility] Bilirubin Ql (U) Negative Negative [facility] Glucose Test strip mass conc (U) 4+ Invalid Interpretation Code Negative [facility] Hemoglobin Ql (U) Negative Negative [facility] Nitrite Ql (U) Negative Negative [facility] pH (U) 5 [pH] Invalid Interpretation Code 4.5-7.8 [facility] Protein Ql (U) Negative Negative [facility] Urobilinogen Test strip mass conc (U) normal normal [email or web address] 169.0 mg/dL Invalid Interpretation Code [facility] Thyroidon 07-27-2016 T4 mass conc 5.55 ug/dL Invalid Interpretation Code 5.00-12.00 [facility] Thyrotropin Qn 2.71 m[IU]/L Invalid Interpretation Code 0.50-4.00 [facility] Urinalysison 07-27-2016 Clarity Nom (U) clear Invalid Interpretation Code Clear [facility] Color Nom (U) yellow Invalid Interpretation Code yellow [facility] Creatinine mass conc (U) 85.80 mg/dL Invalid Interpretation Code Not Estab. mg/dL [facility] Ketones Ql (U) 1+ Invalid Interpretation Code Negative [email or web address] Leukocyte esterase Test strip Ql (U) Negative Negative [email or web address] Specific gravity Relative Density (U) 1.015 Invalid Interpretation Code 1.003-1.029 [email or web address] Laboratory - Chemistry and C hemistry - challengeon 03-04-2016 Bilirubin Ql (U) Negative Invalid Interpretation Code Negative [email or web address] Ketones Ql (U) Negative Invalid Interpretation Code Negative [email or web address] Urobilinogen (U) [Mass/Vol] normal Invalid Interpretation Code normal [email or web address] Laboratory - Hematology and Cell countson 03-04-2016 Hemoglobin Ql (U) Negative Invalid Interpretation Code Negative [email or web address] Laboratory - Urinalysison Leukocyte esterase Test strip Ql (U) Negative Invalid Interpretation Code Negative [email or web address] Nitrite Ql (U) Negative Invalid Interpretation Code Negative [email or web address] Protein Ql (U) Negative Invalid Interpretation Code Negative [email or web address] Metabolic Panelon 03-04-2016 Anion gap molar conc 16 mmol/L Invalid Interpretation Code 10-20 [facility] Calcium mass conc 10.30 mg/dL Invalid Interpretation Code 8.5-10.8 [facility] Chloride molar conc 99 mmol/L Invalid Interpretation Code 100-112 [facility] CO2 molar conc 30 mmol/L Invalid Interpretation Code 23-30 [email or web address] Creatinine mass conc 1.0 mg/dL Invalid Interpretation Code 0.5-1.5 [facility] GFR/1.73 sq M predicted among non-blacks MDRD vol rate/area (S/P/Bld) 79 mL/min/{1.73_m2} Invalid Interpretation Code [facility] Glucose mass conc 190.0 mg/dL Invalid Interpretation Code 80-117 [facility] Hemoglobin A1c/Hemoglobin.tota l mass fraction (Bld) 6.70 % Invalid Interpretation Code 4.3-6.3 [facility] Potassium molar conc 4.1 mmol/L Invalid Interpretation Code 3.5-5.3 [facility] Sodium molar conc 141 mmol/L Invalid Interpretation Code 135-148 [facility] Urea nitrogen mass conc 12.0 mg/dL Invalid Interpretation Code 7-25 [facility] Urea nitrogen/Creatinine mass ratio 12 mg/mg Invalid Interpretation Code 6-20 [facility] Otheron 03-04-2016 Bilirubin Ql (U) Negative Negative [facility] Glucose Test strip mass conc (U) 4+ Invalid Interpretation Code Negative [facility] Hemoglobin Ql (U) Negative Negative [facility] Nitrite Ql (U) Negative Negative [facility] pH (U) 6 [pH] Invalid Interpretation Code 4.5-7.8 [facility] Protein Ql (U) Negative Negative [facility] Urobilinogen Test strip mass conc (U) normal normal [facility] 146 [facility] 146.0 mg/dL Invalid Interpretation Code [facility] Urinalysison 03-04-2016 Clarity Nom (U) clear Invalid Interpretation Code Clear [facility] Color Nom (U) yellow Invalid Interpretation Code yellow [facility] Ketones Ql (U) Negative Negative [facility] Leukocyte esterase Test strip Ql (U) Negative Negative [facility] Specific gravity Relative Density (U) 1.015 Invalid Interpretation Code 1.003-1.029 [facility] Laboratory - Chemistry and C hemistry - challengeon 11-26-2015 Bilirubin Ql (U) Negative Invalid Interpretation Code Negative [facility] Urobilinogen (U) [Mass/Vol] normal Invalid Interpretation Code normal [facility] Laboratory - Hematology and Cell countson 11-26-2015 Hemoglobin Ql (U) Negative Invalid Interpretation Code Negative [facility] Laboratory - Urinalysison Leukocyte esterase Test strip Ql (U) Negative Invalid Interpretation Code Negative [facility] Nitrite Ql (U) Negative Invalid Interpretation Code Negative [facility] Protein Ql (U) Negative Invalid Interpretation Code Negative [facility] Metabolic Panelon 11-26-2015 Glucose mass conc 220.0 mg/dL Invalid Interpretation Code 80-117 [facility] Hemoglobin A1c/Hemoglobin.tota l mass fraction (Bld) 9.70 % Invalid Interpretation Code 4.3-6.3 [facility] Otheron 11-26-2015 Albumin mass conc (U) < 12.0 Invalid Interpretation Code < 4.0-17.0 [facility] Bilirubin Ql (U) Negative Negative [facility] [employer] Glucose Test strip mass conc (U) 4+ Invalid Interpretation Code Negative [facility] Hemoglobin Ql (U) Negative Negative [facility] [place] [employer] Nitrite Ql (U) Negative Negative [facility] pH (U) 6 [pH] Invalid Interpretation Code 4.5-7.8 [facility] Protein Ql (U) Negative Negative [facility] Urobilinogen Test strip mass conc (U) normal normal [facility] 232 [facility] 232.0 mg/dL Invalid Interpretation Code [facility] Thyroidon 11-26-2015 T4 mass conc 5.77 ug/dL Invalid Interpretation Code 5.00-12.00 [facility] Thyrotropin Qn 2.60 m[IU]/L Invalid Interpretation Code 0.50-4.00 [facility] Urinalysison 11-26-2015 Clarity Nom (U) clear Invalid Interpretation Code Clear [facility] Color Nom (U) yellow Invalid Interpretation Code yellow [facility] Creatinine mass conc (U) 66.20 mg/dL Invalid Interpretation Code Not Estab. mg/dL [facility] Ketones Ql (U) 2+ Invalid Interpretation Code Negative [facility] Leukocyte esterase Test strip Ql (U) Negative Negative [facility] Specific gravity Relative Density (U) 1.010 Invalid Interpretation Code 1.003-1.029 [facility] Laboratory - Chemistry and C hemistry - challengeon 11-07-2015 Cortisol [Mass/Vol] ug/dL Invalid Interpretation Code 3.1-22.4 [facility] Otheron 11-07-2015 Cortisol mass conc ug/dL 3.1-22.4 [facility] Laboratory - Chemistry and C hemistry - challengeon 10-29-2015 Bilirubin Ql (U) Negative Invalid Interpretation Code Negative [facility] Urobilinogen (U) [Mass/Vol] normal Invalid Interpretation Code normal [facility] Laboratory - Hematology and Cell countson 10-29-2015 Hemoglobin Ql (U) Negative Invalid Interpretation Code Negative [facility] Laboratory - Urinalysison Leukocyte esterase Test strip Ql (U) Negative Invalid Interpretation Code Negative [facility] Nitrite Ql (U) Negative Invalid Interpretation Code Negative [facility] Protein Ql (U) Negative Invalid Interpretation Code Negative [facility] Metabolic Panelon 10-29-2015 Anion gap molar conc 20 mmol/L Invalid Interpretation Code 10-20 [facility] Calcium mass conc 9.70 mg/dL Invalid Interpretation Code 8.5-10.8 [facility] Chloride molar conc 96 mmol/L Invalid Interpretation Code 100-112 [facility] CO2 molar conc 27 mmol/L Invalid Interpretation Code 23-30 [facility] Creatinine mass conc 0.80 mg/dL Invalid Interpretation Code 0.5-1.5 [facility] [employer] GFR/1.73 sq M predicted among non-blacks MDRD vol rate/area (S/P/Bld) 102 mL/min/{1.73_m2} Invalid Interpretation Code [facility] Glucose mass conc 286.0 mg/dL Invalid Interpretation Code 80-117 [facility] Hemoglobin A1c/Hemoglobin.tota l mass fraction (Bld) 12.60 % Invalid Interpretation Code 4.3-6.3 [facility] Potassium molar conc 3.6 mmol/L Invalid Interpretation Code 3.5-5.3 [facility] Sodium molar conc 139 mmol/L Invalid Interpretation Code 135-148 [facility] Urea nitrogen mass conc 11.0 mg/dL Invalid Interpretation Code 7-25 [facility] Urea nitrogen/Creatinine mass ratio 14 mg/mg Invalid Interpretation Code 6-20 [facility] Otheron 10-29-2015 Albumin mass conc (U) 25.9 Invalid Interpretation Code 0.0-17.0 [facility] Bilirubin Ql (U) Negative Negative [facility] [place] [employer] Glucose Test strip mass conc (U) 4+ Invalid Interpretation Code Negative [facility] Hemoglobin Ql (U) Negative Negative [facility] [place] [employer] Nitrite Ql (U) Negative Negative [facility] pH (U) 5 [pH] Invalid Interpretation Code 4.5-7.8 [facility] Protein Ql (U) Negative Negative [facility] Urobilinogen Test strip mass conc (U) normal normal [facility] 315 [facility] 315.0 mg/dL Invalid Interpretation Code [facility] Urinalysison 10-29-2015 Albumin/Creatinine DL <= 20 mg/L mass ratio (U) 14.7 mg/g Invalid Interpretation Code 0.0-30.0 [facility] Clarity Nom (U) clear Invalid Interpretation Code Clear [facility] Color Nom (U) yellow Invalid Interpretation Code yellow [facility] Creatinine mass conc (U) 175.60 mg/dL Invalid Interpretation Code Not Estab. mg/dL [facility] Ketones Ql (U) 3+ Invalid Interpretation Code Negative [facility] Leukocyte esterase Test strip Ql (U) Negative Negative [facility] Specific gravity Relative Density (U) 1.020 Invalid Interpretation Code 1.003-1.029 [facility] Laboratory - Chemistry and C hemistry - challengeon 10-03-2015 Bilirubin Ql (U) Negative Invalid Interpretation Code Negative [facility] Urobilinogen (U) [Mass/Vol] normal Invalid Interpretation Code normal [facility] Laboratory - Hematology and Cell countson 10-03-2015 Hemoglobin Ql (U) Negative Invalid Interpretation Code Negative [facility] Laboratory - Urinalysison Leukocyte esterase Test strip Ql (U) Negative Invalid Interpretation Code Negative [facility] Nitrite Ql (U) Negative Invalid Interpretation Code Negative [facility] Protein Ql (U) Negative Invalid Interpretation Code Negative [facility] Metabolic Panelon 10-03-2015 Anion gap molar conc 24 mmol/L Invalid Interpretation Code 10-20 [facility] Calcium mass conc 9.30 mg/dL Invalid Interpretation Code 8.5-10.8 [facility] Chloride molar conc 93 mmol/L Invalid Interpretation Code 100-112 [facility] CO2 molar conc 23 mmol/L Invalid Interpretation Code 23-30 [facility] Creatinine mass conc 0.90 mg/dL Invalid Interpretation Code 0.5-1.5 [facility] GFR/1.73 sq M predicted among non-blacks MDRD vol rate/area (S/P/Bld) 89 mL/min/{1.73_m2} Invalid Interpretation Code [facility] Glucose mass conc 491.0 mg/dL Invalid Interpretation Code 80-117 [facility] Potassium molar conc 4.0 mmol/L Invalid Interpretation Code 3.5-5.3 [facility] Sodium molar conc 136 mmol/L Invalid Interpretation Code 135-148 [facility] Urea nitrogen mass conc 13.0 mg/dL Invalid Interpretation Code 7-25 [facility] Urea nitrogen/Creatinine mass ratio 14 mg/mg Invalid Interpretation Code 6-20 [facility] Otheron 10-03-2015 Bilirubin Ql (U) Negative Negative [facility] C peptide mass conc 5.0 Invalid Interpretation Code 1.1-4.4 [facility] Cortisol mass conc 4.0 ug/dL Invalid Interpretation Code 3.1-22.4 [facility] Glucose Test strip mass conc (U) 4+ Invalid Interpretation Code Negative [facility] Hemoglobin Ql (U) Negative Negative [facility] [employer] Nitrite Ql (U) Negative Negative [facility] pH (U) 5 [pH] Invalid Interpretation Code 4.5-7.8 [facility] Protein Ql (U) Negative Negative [facility] U[facility] Test strip mass conc (U) normal normal [facility] See Above Invalid Interpretation Code 0-0 [facility] Urinalysison 10-03-2015 Clarity Nom (U) clear Invalid Interpretation Code Clear [facility] Color Nom (U) yellow Invalid Interpretation Code yellow [facility] Ketones Ql (U) 1+ Invalid Interpretation Code Negative [facility] Leukocyte esterase Test strip Ql (U) Negative Negative [email or web address] Specific gravity Relative Density (U) 1.005 Invalid Interpretation Code 1.003-1.029 [facility] Hematologyon 08-26-2015 Basophils #/vol (Bld) 0.10 10*3/uL Invalid Interpretation Code 0.0-0.1 [facility] Basophils/100 WBC (Bld) 0.70 % Invalid Interpretation Code 0.0-1.0 [facility] Eosinophils #/vol (Bld) 0.30 10*3/uL Invalid Interpretation Code 0.0-0.5 [email or web address] Eosinophils/100 WBC (Bld) 3.10 % Invalid Interpretation Code 0.0-7.0 [facility] ESR Velocity (Bld) 31 mm/h Invalid Interpretation Code 0-15 [facility] Hematocrit Volume Fraction (Bld) 39.50 % Invalid Interpretation Code 37.8-51.0 [email or web address] Hemoglobin mass conc (Bld) 13.10 g/dL Invalid Interpretation Code 12.6-17.0 [email or web address] Lymphocytes #/vol (Bld) 2.10 10*3/uL Invalid Interpretation Code 0.9-3.1 [email or web address] Lymphocytes/100 WBC (Bld) 21.80 % Invalid Interpretation Code 15.0-46.0 [email or web address] MCH Entitic mass (RBC) 31.50 pg Invalid Interpretation Code 25.7-33.8 [email or web address] MCV Entitic volume (RBC) 94.60 fL Invalid Interpretation Code 82.0-98.4 [facility] Monocytes #/vol (Bld) 0.70 10*3/uL Invalid Interpretation Code 0.3-1.0 [email or web address] Monocytes/100 WBC (Bld) 7.20 % Invalid Interpretation Code 4.0-12.0 [email or web address] Neutrophils #/vol (Bld) 6.20 10*3/uL Invalid Interpretation Code 1.8-7.9 [email or web address] Neutrophils/100 WBC (Bld) 67.20 % Invalid Interpretation Code 43.0-76.0 [email or web address] Platelets #/vol (Bld) 228.0 10*3/uL Invalid Interpretation Code 150-400 [facility] RBC #/vol (Bld) 4.180 10*6/uL Invalid Interpretation Code 4.34-5.61 [facility] WBC #/vol (Bld) 9.40 10*3/uL Invalid Interpretation Code 3.9-10.3 [facility] Metabolic Panelon 08-26-2015 Protein mass conc g/dL CLASS 0 [facility] Otheron 08-26-2015 Erythrocyte distribution width Ratio (RBC) 12.20 % Invalid Interpretation Code 11.5-15.5 [facility] Immune complex IgE Qn 14 Invalid Interpretation Code 0-100 [facility] MCHC mass conc (RBC) 33.30 g/dL Invalid Interpretation Code 32.0-36.0 [facility] Platelet mean volume Entitic volume (Bld) 8.50 fL Invalid Interpretation Code 7.4-10.4 [facility] <0.10 Invalid Interpretation Code CLASS 0 [facility] COMMENT Invalid Interpretation Code [facility] 08-05-2015 Cholesterol in HDL mass conc 60.0 mg/dL Invalid Interpretation Code 36-100 [facility] Cholesterol in LDL mass conc 58.0 mg/dL Invalid Interpretation Code 0-130 [facility] Cholesterol mass conc 150.0 mg/dL Invalid Interpretation Code 0-200 [facility] Triglyceride mass conc 160.0 mg/dL Invalid Interpretation Code 30-150 [facility] Metabolic Panelon 08-05-2015 ALT enzyme act/vol 64.0 U/L Invalid Interpretation Code 0-50 [facility] Anion gap molar conc 18 mmol/L Invalid Interpretation Code 10-20 [facility] AST enzyme act/vol 39.0 U/L Invalid Interpretation Code 0-40 [facility] Calcium mass conc 9.70 mg/dL Invalid Interpretation Code 8.5-10.8 [facility] Chloride molar conc 92 mmol/L Invalid Interpretation Code 100-112 [facility] CO2 molar conc 26 mmol/L Invalid Interpretation Code 23-30 [facility] Creatinine mass conc 1.70 mg/dL Invalid Interpretation Code 0.5-1.5 [facility] GFR/1.73 sq M predicted among non-blacks MDRD vol rate/area (S/P/Bld) 43 mL/min/{1.73_m2} Invalid Interpretation Code [facility] Glucose mass conc 199.0 mg/dL Invalid Interpretation Code 80-117 [facility] Hemoglobin A1c/Hemoglobin.tota l mass fraction (Bld) 8.90 % Invalid Interpretation Code 4.3-6.3 [facility] Potassium molar conc 4.3 mmol/L Invalid Interpretation Code 3.5-5.3 [facility] Sodium molar conc 132 mmol/L Invalid Interpretation Code 135-148 [facility] Urea nitrogen mass conc 24.0 mg/dL Invalid Interpretation Code 7-25 [facility] Urea nitrogen/Creatinine mass ratio 14 mg/mg Invalid Interpretation Code 6-20 [facility] Otheron 08-05-2015 Albumin mass conc (U) < 12.0 Invalid Interpretation Code < 4.0-17.0 [facility] Cholesterol in VLDL mass conc 32.0 mg/dL Invalid Interpretation Code 0-39 [facility] Cholesterol.total/C holesterol in HDL mass ratio 3 {ratio} Invalid Interpretation Code [facility] 209 [facility] 209.0 mg/dL Invalid Interpretation Code [facility] 64.0 U/L 0-50 [facility] Urinalysison 08-05-2015 Creatinine mass conc (U) 186.0 mg/dL Invalid Interpretation Code Not Estab. mg/dL [facility] Vital Signs Date Time Vital Sign Value Performing Clinician Facility 12-31-2024 17:48-0400 Body weight 113.4 kg Cinthia [facility] 12-31-2024 17:48-0400 Diastolic blood pressure 80 mm[Hg] [facility] 12-31-2024 17:48-0400 Heart rate 76 /min [facility] 12-31-2024 17:48-0400 Systolic blood pressure 138 mm[Hg] [facility] 12-25-2024 14:52-0400 Body height 177.8 cm Ericka [facility] 12-25-2024 14:52-0400 Body mass index (BMI) [Ratio] 36.16 kg/m2 [facility] 12-25-2024 14:52-0400 Body surface area Derived from formula 2.38 m2 Ericka Muniz [email or web address] 12-25-2024 14:52-0400 Body weight 114.31 kg Ericka Muniz [email or web address] 12-25-2024 14:52-0400 Diastolic blood pressure 68 mm[Hg] Ericka Muniz [facility] 12-25-2024 14:52-0400 Heart rate 86 /min Ericka Muniz [email or web address] 12-25-2024 14:52-0400 Systolic blood pressure 138 mm[Hg] Ericka Muniz [email or web address] 08-14-2024 15:21-0500 Body height 180.34 cm Ericka Muniz MD Work Phone: [facility] 08-14-2024 15:21-0500 Body mass index (BMI) [Ratio] 34.5 kg/m2 Ericka Muniz MD Work Phone: [facility] 08-14-2024 15:21-0500 Body weight 112.49 kg Ericka Muniz MD Work Phone: [facility] 08-14-2024 15:21-0500 Diastolic blood pressure 90 mm[Hg] Ericka Muniz MD Work Phone: [facility] 08-14-2024 15:21-0500 Heart rate 103 /min Ericka Muniz MD Work Phone: [facility] 08-14-2024 15:21-0500 Respiratory rate 20 /min Ericka Muniz MD Work Phone: [facility] 08-14-2024 15:21-0500 SaO2% (BldA) [Mass fraction] 97 % Ericka Muniz MD Work Phone: [facility] 08-14-2024 15:21-0500 Systolic blood pressure 137 mm[Hg] Ericka Muniz MD Work Phone: [facility] 04-26-2024 17:02-0400 [facility] [place] 113[place] [facility] [facility] [place] 17:02-0400 Diastolic blood pressure 80 mm[Hg] [facility] [place] [facility]-26-[facility]24 17:02-0400 Heart rate 78 /[place] [facility] [facility]-26-[facility]24 17:02-0400 Systolic blood pressure 122 mm[Hg] [facility] [place] 03-21-2024 14:06-0400 Body height 179.07 cm Ericka [employer] 03-21-2024 14:06-0400 Body mass index (BMI) [Ratio] 34.52 kg/m2 [facility] 03-21-2024 14:06-0400 Body surface area Derived from formula 2.35 m2 [facility] 03-21-2024 14:06-0400 Body weight 110.68 kg Ericka [facility] 03-21-2024 14:06-0400 Diastolic blood pressure 76 mm[Hg] [facility] 03-21-2024 14:06-0400 Heart rate 72 /min [facility] 03-21-2024 14:06-0400 Systolic blood pressure 136 mm[Hg] [facility] 12-14-2023 15:17-0400 Body height 180.34 cm RADHA Upton Work Phone: [facility] 12-14-2023 15:17-0400 Body temperature 97.6 [degF] FACILITIES CLERK Mark Alexsandra Work Phone: [facility] 12-14-2023 15:17-0400 Body weight 108.3 kg FACILITIES CLERK Mark Alexsandra Work Phone: [facility] 12-14-2023 15:17-0400 Diastolic blood pressure 87 mm[Hg] FACILITIES CLERK Mark Alexsandra Work Phone: [facility] 12-14-2023 15:17-0400 Heart rate 97 /min FACILITIES CLERK Mark Alexsandra Work Phone: [facility] 12-14-2023 15:17-0400 Respiratory rate 18 /min FACILITIES CLERK Mark Alexsandra Work Phone: [facility] 12-14-2023 15:17-0400 SaO2% (BldA) [Mass fraction] 95 % FACILITIES CLERK Mark Alexsandra Work Phone: [facility] 12-14-2023 15:17-0400 Systolic blood pressure 158 mm[Hg] FACILITIES CLERK Mark Alexsandra Work Phone: [facility] 12-03-2023 16:32-0400 Body height 180.34 cm FACILITIES CLERK Mark Alexsandra Work Phone: [facility] 12-03-2023 16:32-0400 Body temperature 97.9 [degF] FACILITIES CLERK Mark Alexsandra Work Phone: [facility] 12-03-2023 16:32-0400 Body weight 111.25 kg FACILITIES CLERK Mark Alexsandra Work Phone: [facility] 12-03-2023 16:32-0400 Diastolic blood pressure 79 mm[Hg] FACILITIES CLERK Mark Alexsandra Work Phone: [place] [facility] 12-03-2023 16:32-0400 Heart rate 98 /min FACILITIES CLERK Makr Alexsandra Work Phone: [facility] 12-03-2023 16:32-0400 Respiratory rate 17 /min FACILITIES CLERK Mark Alexsandra Work Phone: [facility] 12-03-2023 16:32-0400 SaO2% (BldA) [Mass fraction] 95 % FACILITIES CLERKDouglas Upton Work Phone: [facility] 12-03-2023 16:32-0400 Systolic blood pressure 159 mm[Hg] RADHA Upton Work Phone: [facility] 11-14-2023 14:24-0400 Body height 179.07 cm Ericka [employer] 11-14-2023 14:24-0400 Diastolic blood pressure 84 mm[Hg] Ericka [employer] 11-14-2023 14:24-0400 Systolic blood pressure 118 mm[Hg] Ericka [employer] 11-14-2023 13:14-0400 Body weight 109.77 kg Ericka [employer] 11-14-2023 13:14-0400 Diastolic blood pressure 80 mm[Hg] Ericka [employer] 11-14-2023 13:14-0400 Heart rate 76 /min Ericka [employer] 11-14-2023 13:14-0400 Systolic blood pressure 170 mm[Hg] Ericka [employer] 01-25-2023 16:12-0400 Body height 180.34 cm Ericka [employer] 01-25-2023 16:12-0400 Body mass index (BMI) [Ratio] 33.19 kg/m2 Ericka [employer] 01-25-2023 16:12-0400 Body surface area Derived from formula 2.33 m2 Ericka [employer] 01-25-2023 16:12-0400 Body weight 107.96 kg Ericka [employer] 01-25-2023 16:12-0400 Diastolic blood pressure 72 mm[Hg] Ericka Muniz [facility] 01-25-2023 16:12-0400 Heart rate 90 /min Ericka Muniz [facility] 01-25-2023 16:12-0400 Systolic blood pressure 128 mm[Hg] Ericka [employer] 07-27-2022 16:23-0500 Body height 180.34 cm Edilberto [employer] 07-27-2022 16:23-0500 Body mass index (BMI) [Ratio] 33.33 kg/m2 Edilberto [employer] 07-27-2022 16:23-0500 Body surface area Derived from formula 2.33 m2 Edilberto [employer] 07-27-2022 16:23-0500 Body weight 108.41 kg Edilberto [employer] 07-27-2022 16:23-0500 Body weight 0.1 {percentile} Edilberto [employer] 07-27-2022 16:23-0500 Diastolic blood pressure 68 mm[Hg] Edilberto [employer] 07-27-2022 16:23-0500 Heart rate 100 /min Edilberto [employer] 07-27-2022 16:23-0500 Systolic blood pressure 110 mm[Hg] Edilberto [employer] 05-27-2022 14:45-0500 Body height 182.88 cm [facility] 05-27-2022 14:45-0500 Body mass index (BMI) [Ratio] 24.4 kg/m2 [facility] 05-27-2022 14:45-0500 Body weight 81.64 kg [facility] 05-27-2022 14:39-0500 Body temperature 97.7 [degF] [facility] 05-27-2022 14:39-0500 Diastolic blood pressure 78 mm[Hg] [facility] 05-27-2022 14:39-0500 Heart rate 90 /min [facility] 05-27-2022 14:39-0500 Respiratory rate 20 /min [facility] 05-27-2022 14:39-0500 Systolic blood pressure 153 mm[Hg] [facility] 05-05-2022 14:50-0400 Body height 182.88 cm [facility] 05-05-2022 14:50-0400 Body mass index (BMI) [Ratio] 24.4 kg/m2 [facility] 05-05-2022 14:50-0400 Body weight 81.64 kg [facility] 05-05-2022 14:36-0400 Body temperature 97.9 [degF] [facility] 05-05-2022 14:36-0400 Diastolic blood pressure 82 mm[Hg] [facility] 05-05-2022 14:36-0400 Heart rate 106 /min [facility] 05-05-2022 14:36-0400 Respiratory rate 18 /min [facility] 05-05-2022 14:36-0400 Systolic blood pressure 153 mm[Hg] [facility] 04-14-2022 14:46-0400 Body height 182.88 cm [facility] 04-14-2022 14:46-0400 Body mass index (BMI) [Ratio] 24.4 kg/m2 [facility] 04-14-2022 14:46-0400 Body weight 81.64 kg [facility] 04-14-2022 14:14-0400 Body temperature 98.6 [degF] [facility] 04-14-2022 14:14-0400 Diastolic blood pressure 98 mm[Hg] [facility] 04-14-2022 14:14-0400 Heart rate 112 /min [facility] 04-14-2022 14:14-0400 Respiratory rate 18 /min [facility] 04-14-2022 14:14-0400 Systolic blood pressure 168 mm[Hg] [facility] 04-01-2022 18:08-0400 Body height 182.88 cm [facility] 04-01-2022 18:08-0400 Body temperature 98.5 [degF] [facility] 04-01-2022 18:08-0400 Body weight 108.6 kg [facility] 04-01-2022 18:08-0400 Diastolic blood pressure 89 mm[Hg] [facility] 04-01-2022 18:08-0400 Heart rate 112 /min [facility] 04-01-2022 18:08-0400 Respiratory rate 20 /min [facility] 04-01-2022 18:08-0400 SaO2% (BldA) [Mass fraction] 97 % [facility] 04-01-2022 18:08-0400 Systolic blood pressure 143 mm[Hg] [facility] 02-17-2022 15:25-0400 Body height 180.34 cm Franky [facility] 02-17-2022 15:25-0400 Body mass index (BMI) [Ratio] 33.75 kg/m2 [facility] 02-17-2022 15:25-0400 Body surface area Derived from formula 2.35 m2 [email or web address] 02-17-2022 15:25-0400 Body surface area Derived from formula 2.34 m2 Franky [facility] 02-17-2022 15:25-0400 Body weight 109.77 kg Franky [facility] 02-17-2022 15:25-0400 Diastolic blood pressure 72 mm[Hg] Franky [facility] 02-17-2022 15:25-0400 Heart rate 84 /min Franky [facility] 02-17-2022 15:25-0400 Systolic blood pressure 126 mm[Hg] Franky [facility] 02-17-2022 14:30-0400 Body height 180.34 cm Ericka [employer] 02-17-2022 14:30-0400 Body mass index (BMI) [Ratio] 33.75 kg/m2 Ericka [employer] 02-17-2022 14:30-0400 Body surface area Derived from formula 2.35 m2 Ericka [employer] 02-17-2022 14:30-0400 Body surface area Derived from formula 2.34 m2 Ericka [employer] 02-17-2022 14:30-0400 Body weight 109.77 kg Ericka [employer] 02-17-2022 14:30-0400 Diastolic blood pressure 76 mm[Hg] Ericka [employer] 02-17-2022 14:30-0400 Heart rate 88 /min Ericka [employer] 02-17-2022 14:30-0400 Systolic blood pressure 124 mm[Hg] Ericka [employer] 01-15-2022 13:42-0400 Body height 180.34 cm Edilberto Zamora [facility] 01-15-2022 13:42-0400 Body mass index (BMI) [Ratio] 33.47 kg/m2 Edilberto [employer] 01-15-2022 13:42-0400 Body surface area Derived from formula 2.34 m2 Edilberto [employer] 01-15-2022 13:42-0400 Body weight 108.86 kg Edilberto [employer] 01-15-2022 13:42-0400 Diastolic blood pressure 82 mm[Hg] Edilberto [employer] 01-15-2022 13:42-0400 Heart rate 84 /min Edilberto [employer] 01-15-2022 13:42-0400 Systolic blood pressure 132 mm[Hg] Edilberto [employer] 10-20-2021 16:47-0400 Body height 180.34 cm Franky [employer] 10-20-2021 16:47-0400 Body mass index (BMI) [Ratio] 34.03 kg/m2 Franky [employer] 10-20-2021 16:47-0400 Body surface area Derived from formula 2.35 m2 Franky [employer] 10-20-2021 16:47-0400 Body weight 110.68 kg Franky [employer] 10-20-2021 16:47-0400 Diastolic blood pressure 78 mm[Hg] Franky [employer] 10-20-2021 16:47-0400 Heart rate 88 /min Franky [employer] 10-20-2021 16:47-0400 Systolic blood pressure 122 mm[Hg] Franky [employer] 09-17-2021 16:22-0500 Body height 180.34 cm Franky [employer] 09-17-2021 16:22-0500 Body mass index (BMI) [Ratio] 34.17 kg/m2 Franky [employer] 09-17-2021 16:22-0500 Body surface area Derived from formula 2.36 m2 [email or web address] 09-17-2021 16:22-0500 Body weight 111.13 kg Franky [employer] 09-17-2021 16:22-0500 Diastolic blood pressure 78 mm[Hg] Franky [employer] 09-17-2021 16:22-0500 Heart rate 84 /min Franky [employer] 09-17-2021 16:22-0500 Systolic blood pressure 142 mm[Hg] Franky [employer] 09-03-2021 14:40-0500 Body height 180.34 cm [employer] 09-03-2021 14:40-0500 Body mass index (BMI) [Ratio] 35.15 kg/m2 [employer] 09-03-2021 14:40-0500 Body surface area Derived from formula 2.39 m2 [employer] 09-03-2021 14:40-0500 Body weight 114.31 kg [employer] 09-03-2021 14:40-0500 Diastolic blood pressure 74 mm[Hg] Edilberto Zamora [facility] 09-03-2021 14:40-0500 Heart rate 84 /min Edilberto Zamora [facility] 09-03-2021 14:40-0500 Systolic blood pressure 136 mm[Hg] Edilberto [employer] 03-19-2021 14:33-0400 Body height 181.61 cm Edilberto [employer] 03-19-2021 14:33-0400 Body mass index (BMI) [Ratio] 33.49 kg/m2 Edilberto [employer] 03-19-2021 14:33-0400 Body surface area Derived from formula 2.36 m2 Edilberto [employer] 03-19-2021 14:33-0400 Body weight 110.45 kg Edilberto [employer] 03-19-2021 14:33-0400 Diastolic blood pressure 80 mm[Hg] Edilberto [employer] 03-19-2021 14:33-0400 Heart rate 88 /min Edilberto [employer] 03-19-2021 14:33-0400 Systolic blood pressure 126 mm[Hg] Edilberto [employer] 12-23-2020 13:35-0400 Body height 181.61 cm Ericka Muniz [facility] 12-23-2020 13:35-0400 Body mass index (BMI) [Ratio] 33.01 kg/m2 Ericka [employer] 12-23-2020 13:35-0400 Body surface area Derived from formula 2.34 m2 Ericka [employer] 12-23-2020 13:35-0400 Body weight 108.86 kg Ericka [employer] [facility] 12-23-2020 13:35-0400 Diastolic blood pressure 86 mm[Hg] Ericka [employer] 12-23-2020 13:35-0400 Heart rate 83 /min Ericka [employer] 12-23-2020 13:35-0400 Systolic blood pressure 126 mm[Hg] Ericka [employer] 09-09-2020 15:15-0500 BMI (Body Mass Index) 33.56 kg/m2 Edilberto [employer] 09-09-2020 15:15-0500 Body weight 110.68 kg Edilberto [employer] 09-09-2020 15:15-0500 BP Diastolic 74 mm[Hg] Edilberto [employer] 09-09-2020 15:15-0500 BP Systolic 130 mm[Hg] Edilberto [employer] 09-09-2020 15:15-0500 BSA (Body Surface Area) 2.36 m2 Edilberto [employer] 09-09-2020 15:15-0500 Height 181.61 cm Edilberto [employer] 09-09-2020 15:15-0500 Pulse (Heart Rate) 104 /min Edilberto [employer] [facility] [employer] 04-08-2020 17:01-0400 BMI (Body Mass Index) 33.46 kg/m2 Edilberto Zamora [email or web address] 04-08-2020 17:01-0400 Body weight 110.37 kg Edilberto Zamora [facility] 04-08-2020 17:01-0400 BP Diastolic 78 mm[Hg] Edilberto Zamora [facility] 04-08-2020 17:01-0400 BP Systolic 120 mm[Hg] Edilberto Zamora [facility] 04-08-2020 17:01-0400 BSA (Body Surface Area) 2.36 m2 Edilberto [employer] [facility] 04-08-2020 17:01-0400 Height 181.61 cm Edilberto [email or web address] 04-08-2020 17:01-0400 Pulse (Heart Rate) 78 /min Edilberto Zamora [facility] 02-21-2020 17:34-0400 BMI (Body Mass Index) 33.83 kg/m2 Ericka [employer] [facility] 02-21-2020 17:34-0400 Body Temperature 97.8 [degF] [facility] 02-21-2020 17:34-0400 Body weight 111.59 kg Ericka [employer] [facility] 02-21-2020 17:34-0400 BP Diastolic 70 mm[Hg] Ericka [employer] 02-21-2020 17:34-0400 BP Systolic 132 mm[Hg] Ericka [employer] 02-21-2020 17:34-0400 BSA (Body Surface Area) 2.37 m2 Ericka [employer] 02-21-2020 17:34-0400 Height 181.61 cm Ericka Sil[facility]Rex[facility] 02-21-2020 17:34-0400 Pulse (Heart Rate) 88 /min Ericka eng Markafoni [facility] 12-28-2019 14:30-0400 Body Temperature 98.6 [degF] [facility] [place] 12-28-2019 14:30-0400 BP Diastolic 88 mm[Hg] [facility] [place] 12-28-2019 14:30-0400 BP Systolic 135 mm[Hg] [facility] [place] 12-28-2019 14:30-0400 Pulse (Heart Rate) 80 /min [facility] [place] 12-28-2019 14:30-0400 Pulse Oximetry 93 % [facility] [place] 12-28-2019 14:30-0400 Respiratory Rate 18 /min [facility] [place] 12-28-2019 08:19-0400 BMI (Body Mass Index) 33.63 kg/m2 [facility] [place] 12-28-2019 08:19-0400 Body weight 112.49 kg [facility] [place] 12-28-2019 08:19-0400 Height 182.9 cm [facility] [place] 11-26-2019 17:01-0400 BMI (Body Mass Index) 34.24 kg/m2 Ericka [place] [employer] [facility] 11-26-2019 17:01-0400 Body Temperature 98.5 [degF] Ericka Meraz Mark[facility] 11-26-2019 17:01-0400 Body weight 112.95 kg Ericka Silveirahard [employer] [facility] 11-26-2019 17:01-0400 BP Diastolic 72 mm[Hg] Ericka Silveirahard [employer] [facility] 11-26-2019 17:01-0400 BP Systolic 116 mm[Hg] Ericka Muniz [facility] 11-26-2019 17:01-0400 BSA (Body Surface Area) 2.39 m2 Ericka Muniz [facility] 11-26-2019 17:010400 Height 181.61 cm Ericka Muniz [facility] 11-26-2019 17:01-0400 Pulse (Heart Rate) 100 /min Ericka [facility] [employer] 08-28-2019 15:09-0500 BMI (Body Mass Index) 33.83 kg/m2 Edilberto [employer] 08-28-2019 15:09-0500 Body weight 111.59 kg Edilberto [employer] 08-28-2019 15:09-0500 BP Diastolic 80 mm[Hg] Edilberto [employer] 08-28-2019 15:09-0500 BP Systolic 126 mm[Hg] Edilberto [employer] 08-28-2019 15:09-0500 BSA (Body Surface Area) 2.37 m2 Edilberto [employer] 08-28-2019 15:09-0500 Height 181.61 cm Edilberto [employer] 08-28-2019 15:09-0500 Pulse (Heart Rate) 80 /min Edilberto [email or web address] 05-28-2019 18:11-0500 BMI (Body Mass Index) 33.51 kg/m2 Ericka Muniz [facility] 05-28-2019 18:11-0500 Body weight 111.13 kg Ericka Muniz [facility] 05-28-2019 18:11-0500 BP Diastolic 74 mm[Hg] Ericka Muniz [facility] 05-28-2019 18:11-0500 BP Systolic 124 mm[Hg] Ericka Muniz [facility] 05-28-2019 18:11-0500 BSA (Body Surface Area) 2.37 m2 Ericka Muniz [facility] 05-28-2019 18:11-0500 Height 182.12 cm Ericka Muniz [facility] 05-28-2019 18:11-0500 Pulse (Heart Rate) 80 /min Ericka Muniz [employer] 04-17-2019 17:27-0400 BMI (Body Mass Index) 33.96 kg/m2 Edilberto [employer] 04-17-2019 17:27-0400 Body weight 112.95 kg Edilberto [employer] 04-17-2019 17:27-0400 BP Diastolic 86 mm[Hg] Edilberto [employer] 04-17-2019 17:27-0400 BP Systolic 122 mm[Hg] Edilberto [employer] 04-17-2019 17:27-0400 BSA (Body Surface Area) 2.39 m2 Edilberto [employer] 04-17-2019 17:27-0400 Height 182.37 cm Edilberto [employer] 04-17-2019 17:27-0400 Pulse (Heart Rate) 102 /min Edilberto [email or web address] 01-25-2019 13:01-0400 BMI (Body Mass Index) 34.3 kg/m2 Ericka [employer] 01-25-2019 13:01-0400 Body weight 114.08 kg Ericka [email or web address] 01-25-2019 13:01-0400 BP Diastolic 92 mm[Hg] Ericka [email or web address] 01-25-2019 13:01-0400 BP Systolic 142 mm[Hg] Ericka Frazier[employer] 01-25-2019 13:01-0400 BSA (Body Surface Area) 2.4 m2 Ericka Muniz [facility] 01-25-2019 13:01-0400 Height 182.37 cm Ericka Muniz [facility] 01-25-2019 13:01-0400 Pulse (Heart Rate) 88 /min Ericka SilveiraPsomasFMG 12-12-2018 13:49-0400 BMI (Body Mass Index) 34.5 kg/m2 Edilberto [employer] 12-12-2018 13:49-0400 Body weight 114.76 kg Ericka Muniz [facility] 12-12-2018 13:49-0400 BP Diastolic 88 mm[Hg] Edilberto [employer] 12-12-2018 13:49-0400 BP Systolic 148 mm[Hg] Edilberto [employer] 12-12-2018 13:49-0400 BSA (Body Surface Area) 2.41 m2 Edilberto [employer] 12-12-2018 13:49-0400 Height 182.37 cm Edilberto [employer] 12-12-2018 13:49-0400 Pulse (Heart Rate) 90 /min Edilberto [employer] 12-12-2018 13:49-0400 Weight 114.76 kg Edilberto Zamora [facility] 10-02-2018 13:45-0400 BMI (Body Mass Index) 34.38 kg/m2 Edilberto [employer] 10-02-2018 13:45-0400 Body weight 113.4 kg Ericka Muniz [facility] 10-02-2018 13:45-0400 BP Diastolic 90 mm[Hg] Edilberto [employer] 10-02-2018 13:45-0400 BP Systolic 164 mm[Hg] Edilberto [employer] 10-02-2018 13:45-0400 BSA (Body Surface Area) 2.39 m2 Edilberto [employer] 10-02-2018 13:45-0400 Height 181.61 cm Edilberto [employer] 10-02-2018 13:45-0400 Pulse (Heart Rate) 90 /min Edilberto SilveiraPsomasFMG 10-02-2018 13:45-0400 Weight 113.4 kg Edilberto [employer] 08-30-2018 13:14-0500 BMI (Body Mass Index) 33.74 kg/m2 Edilberto [employer] 08-30-2018 13:14-0500 Body weight 111.27 kg Ericka Muniz [facility] 08-30-2018 13:14-0500 BP Diastolic 88 mm[Hg] Edilberto [employer] 08-30-2018 13:14-0500 BP Systolic 142 mm[Hg] Edilberto [employer] 08-30-2018 13:14-0500 BSA (Body Surface Area) 2.37 m2 Edilberto Zamora [facility] 08-30-2018 13:14-0500 Height 181.61 cm Edilberto [employer] 08-30-2018 13:14-0500 Pulse (Heart Rate) 84 /min Edilberto SilveiraPsomasFMG 08-30-2018 13:14-0500 Weight 111.27 kg Edilberto [employer] 06-19-2018 13:18-0500 Body weight 112.04 kg Ericka Muniz [facility] 06-19-2018 13:18-0500 BP Diastolic 80 mm[Hg] Edilberto [employer] 06-19-2018 13:18-0500 BP Systolic 138 mm[Hg] Edilberto [employer] 06-19-2018 13:18-0500 Pulse (Heart Rate) 70 /min Edilberto SilveiraPsomasFMG 06-19-2018 13:18-0500 Weight 112.04 kg Edilberto [employer] 03-20-2018 14:25-0400 BMI (Body Mass Index) 32.28 kg/m2 Edilberto [employer] 03-20-2018 14:25-0400 Body weight 107.96 kg Ericka Muniz [facility] 03-20-2018 14:25-0400 BP Diastolic 80 mm[Hg] Edilbetro [employer] 03-20-2018 14:25-0400 BP Systolic 142 mm[Hg] Edilberto [email or web address] 03-20-2018 14:25-0400 BSA (Body Surface Area) 2.34 m2 Edilberto [email or web address] 03-20-2018 14:25-0400 Height 182.88 cm Edilberto [email or web address] 03-20-2018 14:25-0400 Pulse (Heart Rate) 78 /min Edilberto SilveiraPsomasFMG 03-20-2018 14:25-0400 Weight 107.96 kg Edilberto Zamora [facility] 03-01-2018 13:34-0400 BMI (Body Mass Index) 32.55 kg/m2 Edilberto Zamora [facility] 03-01-2018 13:34-0400 Body weight 108.86 kg Ericka [email or web address] 03-01-2018 13:34-0400 BP Diastolic 104 mm[Hg] Edilberto Zamora [email or web address] 03-01-2018 13:34-0400 BP Systolic 138 mm[Hg] Edilberto Zamora [email or web address] 03-01-2018 13:34-0400 BSA (Body Surface Area) 2.35 m2 Edilberto Zamora [email or web address] 03-01-2018 13:34-0400 Height 182.88 cm Edilberto Zamora [facility] 03-01-2018 13:34-0400 Pulse (Heart Rate) 104 /min Edilberto SilveiraPsomasFMG 03-01-2018 13:34-0400 Weight 108.86 kg Edilberto Zamora [facility] 12-13-2017 13:50-0400 BMI (Body Mass Index) 33.36 kg/m2 Edilberto Zamora [facility] 12-13-2017 13:50-0400 Body weight 111.59 kg Ericka [email or web address] 12-13-2017 13:50-0400 BP Diastolic 78 mm[Hg] Edilberto [employer] 12-13-2017 13:50-0400 BP Systolic 144 mm[Hg] Edilberto [employer] 12-13-2017 13:50-0400 BSA (Body Surface Area) 2.38 m2 Edilberto [employer] 12-13-2017 13:50-0400 Height 182.88 cm Edilberto [employer] 12-13-2017 13:50-0400 Pulse (Heart Rate) 76 /min Edilberto [employer] Francisco [employer] 12-13-2017 13:50-0400 Weight 111.59 kg Edilberto [employer] 09-01-2017 13:48-0500 BMI (Body Mass Index) 33.09 kg/m2 Edilberto [employer] 09-01-2017 13:48-0500 Body weight 110.68 kg Ericka Muniz [facility] 09-01-2017 13:48-0500 BP Diastolic 92 mm[Hg] Edilberto [employer] 09-01-2017 13:48-0500 BP Systolic 128 mm[Hg] Edilberto [employer] 09-01-2017 13:48-0500 BSA (Body Surface Area) 2.37 m2 Edilberto Zamora [email or web address] 09-01-2017 13:48-0500 Height 182.88 cm Edilberto Zamora [facility] 09-01-2017 13:48-0500 Pulse (Heart Rate) 80 /min Edilberto Silveirahard Francisco [employer] 09-01-2017 13:48-0500 Weight 110.68 kg Edilberto Zamora [facility] 08-05-2017 13:30-0500 BMI (Body Mass Index) 33.63 kg/m2 Edilberto Zamora [facility] 08-05-2017 13:30-0500 Body weight 112.49 kg Ericka FrazierLLLer 08-05-2017 13:30-0500 BP Diastolic 80 mm[Hg] Edilberto Zamora [facility] 08-05-2017 13:30-0500 BP Systolic 140 mm[Hg] Edilberto [employer] 08-05-2017 13:30-0500 BSA (Body Surface Area) 2.39 m2 Edilberto [employer] 08-05-2017 13:30-0500 Height 182.88 cm Edilberto Zamora [facility] 08-05-2017 13:30-0500 Pulse (Heart Rate) 84 /min Edilberto SilveiraPsomasFMG 08-05-2017 13:30-0500 Weight 112.49 kg Edilberto [employer] 06-27-2017 17:18-0500 BMI (Body Mass Index) 33.63 kg/m2 Edilberto [employer] 06-27-2017 17:18-0500 Body weight 112.49 kg Ericka Muniz [facility] 06-27-2017 17:18-0500 BP Diastolic 90 mm[Hg] Edilberto [employer] 06-27-2017 17:18-0500 BP Systolic 140 mm[Hg] Edilberto [employer] 06-27-2017 17:18-0500 BSA (Body Surface Area) 2.39 m2 Edilberto [employer] 06-27-2017 17:18-0500 Height 182.88 cm Edilberto [employer] 06-27-2017 17:18-0500 Pulse (Heart Rate) 80 /min Edilberto [email or web address] 06-27-2017 17:18-0500 Weight 112.49 kg Edilberto [employer] 04-05-2017 13:30-0400 Body weight 106.6 kg Ericka Muniz [facility] 04-05-2017 13:30-0400 BP Diastolic 80 mm[Hg] Edilberto [employer] 04-05-2017 13:30-0400 BP Systolic 118 mm[Hg] Edilberto [employer] 04-05-2017 13:30-0400 Pulse (Heart Rate) 70 /min Edilberto [email or web address] 04-05-2017 13:30-0400 Weight 106.6 kg Edilberto [employer] 03-01-2017 12:25-0400 BMI (Body Mass Index) 32.01 kg/m2 Edilberto [employer] 03-01-2017 12:25-0400 Body weight 107.05 kg Ericka [email or web address] 03-01-2017 12:25-0400 BP Diastolic 80 mm[Hg] Edilberto Zamora [facility] 03-01-2017 12:25-0400 BP Systolic 116 mm[Hg] Edilberto [employer] 03-01-2017 12:25-0400 BSA (Body Surface Area) 2.33 m2 Edilberto [employer] 03-01-2017 12:25-0400 Height 182.88 cm Edilberto [employer] 03-01-2017 12:25-0400 Pulse (Heart Rate) 84 /min Edilberto Zamora [facility] [employer] 03-01-2017 12:25-0400 Weight 107.05 kg Edilberto [employer] 02-09-2017 13:42-0400 BMI (Body Mass Index) 32.01 kg/m2 Edilberto [employer] 02-09-2017 13:42-0400 Body weight 107.05 kg Ericka [email or web address] 02-09-2017 13:42-0400 BP Diastolic 80 mm[Hg] Edilberto Zamora [facility] 02-09-2017 13:42-0400 BP Systolic 130 mm[Hg] Edilberto [employer] 02-09-2017 13:42-0400 BSA (Body Surface Area) 2.33 m2 Edil[employer] 02-09-2017 13:42-0400 Height 182.88 cm Edilberto [employer] 02-09-2017 13:42-0400 Pulse (Heart Rate) 80 /min Edilberto SilveiraPsomasFMG 02-09-2017 13:42-0400 Weight 107.05 kg Edilberto [employer] 11-30-2016 13:21-0400 BMI (Body Mass Index) 32.35 kg/m2 Edilberto [employer] 11-30-2016 13:21-0400 Body weight 108.18 kg Erikca Muniz [facility] 11-30-2016 13:21-0400 BP Diastolic 76 mm[Hg] Edilberto [employer] 11-30-2016 13:21-0400 BP Systolic 128 mm[Hg] Edilberto [employer] 11-30-2016 13:21-0400 BSA (Body Surface Area) 2.34 m2 Edilberto [employer] 11-30-2016 13:21-0400 Height 182.88 cm Edilberto [employer] 11-30-2016 13:21-0400 Pulse (Heart Rate) 84 /min Edilberto [facility] 11-30-2016 13:21-0400 Weight 108.18 kg Edilberto [employer] 09-28-2016 11:37-0400 BMI (Body Mass Index) 32.75 kg/m2 Edilberto [employer] 09-28-2016 11:37-0400 Body weight 109.54 kg Ericka Muniz [employer] [employer] [facility] 09-28-2016 11:37-0400 BP Diastolic 92 mm[Hg] [email or web address] 09-28-2016 11:37-0400 BP Systolic 142 mm[Hg] [email or web address] 09-28-2016 11:37-0400 BSA (Body Surface Area) 2.36 m2 [facility]to [email or web address] 09-28-2016 11:37-0400 Height 182.88 cm Edilberto Zamora [email or web address] 09-28-2016 11:37-0400 Pulse (Heart Rate) 100 /min Edilberto [facility]ira[facility] 09-28-2016 11:37-0400 Weight 109.54 kg Edilberto Zamora [facility] 08-03-2016 13:51-0500 BMI (Body Mass Index) 32.96 kg/m2 Edilberto Zamora [email or web address] 08-03-2016 13:51-0500 Body weight 110.22 kg Ericka [email or web address] 08-03-2016 13:51-0500 BP Diastolic 96 mm[Hg] Edilberto Zamora [email or web address] 08-03-2016 13:51-0500 BP Systolic 152 mm[Hg] Edilberto Zamora [email or web address] 08-03-2016 13:51-0500 BSA (Body Surface Area) 2.37 m2 Edilberto [employer] 08-03-2016 13:51-0500 Height 182.88 cm Edilberto Zamora [facility] 08-03-2016 13:51-0500 Pulse (Heart Rate) 108 /min Edilberto [email or web address] 08-03-2016 13:51-0500 Weight 110.22 kg Edilberto [facility] 03-31-2016 11:23-0400 BMI (Body Mass Index) 32.64 kg/m2 Edilberto Zamora [facility] 03-31-2016 11:23-0400 Body weight 106.14 kg Ericka Muniz [facility] 03-31-2016 11:23-0400 BP Diastolic 76 mm[Hg] Edilberto [employer] 03-31-2016 11:23-0400 BP Systolic 124 mm[Hg] Edilberto [employer] 03-31-2016 11:23-0400 BSA (Body Surface Area) 2.31 m2 Edilberto [employer] 03-31-2016 11:23-0400 Height 180.34 cm Edilberto [employer] 03-31-2016 11:23-0400 Pulse (Heart Rate) 80 /min Edilberto [facility] 03-31-2016 11:23-0400 Weight 106.14 kg Edilberto Zamora [facility] 03-30-2016 13:44-0400 BMI (Body Mass Index) 32.85 kg/m2 Edilberto Zamora [facility] 03-30-2016 13:44-0400 Body weight 106.82 kg Ericka Muniz [facility] 03-30-2016 13:44-0400 BP Diastolic 70 mm[Hg] Edilberto [employer] 03-30-2016 13:44-0400 BP Systolic 136 mm[Hg] Edilberto [email or web address] 03-30-2016 13:44-0400 BSA (Body Surface Area) 2.31 m2 Edilberto Zamora [email or web address] 03-30-2016 13:44-0400 Height 180.34 cm Edilberto Zamora [email or web address] 03-30-2016 13:44-0400 Pulse (Heart Rate) 96 /min Edilberto [facility] 03-30-2016 13:44-0400 Weight 106.82 kg Edilberto Zamora [facility] 02-23-2016 14:54-0400 BMI (Body Mass Index) 32.71 kg/m2 Edilberto Zamora [facility] 02-23-2016 14:54-0400 Body weight 106.37 kg Ericka [email or web address] 02-23-2016 14:54-0400 BP Diastolic 90 mm[Hg] Edilberto Zamora [facility] 02-23-2016 14:54-0400 BP Systolic 132 mm[Hg] Edilberto Zamora [facility] 02-23-2016 14:54-0400 BSA (Body Surface Area) 2.31 m2 Edilberto Zamora [email or web address] 02-23-2016 14:54-0400 Height 180.34 cm Edilebrto Zamora [facility] 02-23-2016 14:54-0400 Pulse (Heart Rate) 88 /min Edilberto [facility] 02-23-2016 14:54-0400 Weight 106.37 kg Edilberto Zamora [facility] 12-23-2015 13:34-0400 BMI (Body Mass Index) 33.89 kg/m2 Edilberto [employer] 12-23-2015 13:34-0400 Body weight 110.22 kg Ericka Muniz [email or web address] 12-23-2015 13:34-0400 BP Diastolic 76 mm[Hg] Edilberto [employer] 12-23-2015 13:34-0400 BP Systolic 110 mm[Hg] Edilberto [employer] 12-23-2015 13:34-0400 BSA (Body Surface Area) 2.35 m2 Edilberto [employer] 12-23-2015 13:34-0400 Height 180.34 cm Edilberto [employer] 12-23-2015 13:34-0400 Pulse (Heart Rate) 100 /min Edilberto [employer] 12-23-2015 13:34-0400 Weight 110.22 kg Edilberto [employer] 12-09-2015 13:00-0400 BMI (Body Mass Index) 33.47 kg/m2 Edilberto [employer] 12-09-2015 13:00-0400 Body weight 108.86 kg Ericka Muniz [facility] 12-09-2015 13:00-0400 BP Diastolic 74 mm[Hg] Edilberto [employer] 12-09-2015 13:00-0400 BP Systolic 114 mm[Hg] Edilberto [employer] 12-09-2015 13:00-0400 BSA (Body Surface Area) 2.34 m2 [employer] 12-09-2015 13:000400 Height 180.34 cm Edilberto Zamora [email or web address] 12-09-2015 13:00-0400 Pulse (Heart Rate) 100 /min Edilberto Tijerina [employer] 12-09-2015 13:000400 Weight 108.86 kg Edilberto Zamora [facility] 12-03-2015 12:29-0400 BMI (Body Mass Index) 34.31 kg/m2 Edilberto Zamora [facility] 12-03-2015 12:29-0400 Body weight 111.59 kg Ericka [email or web address] 12-03-2015 12:29-0400 BP Diastolic 66 mm[Hg] Edilberto Zamora [facility] 12-03-2015 12:29-0400 BP Systolic 114 mm[Hg] Edilberto Zamora [facility] 12-03-2015 12:29-0400 BSA (Body Surface Area) 2.36 m2 Edilberto Zamora [facility] 12-03-2015 12:290400 Height 180.34 cm Edilberto Zamora [facility] 12-03-2015 12:29-0400 Pulse (Heart Rate) 100 /min Edilberto Tijerina [employer] 12-03-2015 12:29-0400 Weight 111.59 kg Edilberto Zamora [facility] 11-18-2015 13:52-0400 BMI (Body Mass Index) 34.07 kg/m2 Edilberto [employer] 11-18-2015 13:52-0400 Body weight 110.82 kg Ericka Muniz [facility] 11-18-2015 13:52-0400 BP Diastolic 82 mm[Hg] Edilberto [employer] 11-18-2015 13:52-0400 BP Systolic 124 mm[Hg] Edilberto [employer] 11-18-2015 13:52-0400 BSA (Body Surface Area) 2.36 m2 Edilberto [employer] 11-18-2015 13:52-0400 Height 180.34 cm Ed[facility]toSpringr 11-18-2015 13:52-0400 Pulse (Heart Rate) 100 /min Edilberto [employer] 11-18-2015 13:52-0400 Weight 110.82 kg Edilberto [employer] 11-05-2015 14:53-0400 BMI (Body Mass Index) 34.31 kg/m2 Edilberto [employer] 11-05-2015 14:53-0400 Body weight 111.59 kg Ericka Muniz [facility] 11-05-2015 14:53-0400 BP Diastolic 70 mm[Hg] Edil[facility]toSpringr 11-05-2015 14:53-0400 BP Systolic 140 mm[Hg] EdilbertoSpringr 11-05-2015 14:53-0400 BSA (Body Surface Area) 2.36 m2 Ed[employer]toSpringr 11-05-2015 14:53-0400 Height 180.34 cm [employer] 11-05-2015 14:53-0400 Pulse (Heart Rate) 120 /min Edilberto Silveirahard Francisco [employer] 11-05-2015 14:53-0400 Weight 111.59 kg Edilberto [employer] 10-13-2015 13:24-0400 BMI (Body Mass Index) 34.38 kg/m2 Edilberto [employer] 10-13-2015 13:24-0400 Body weight 111.81 kg Ericka Muniz [facility] 10-13-2015 13:24-0400 BP Diastolic 84 mm[Hg] Edilberto [employer] 10-13-2015 13:24-0400 BP Systolic 144 mm[Hg] Edilberto [employer] 10-13-2015 13:24-0400 BSA (Body Surface Area) 2.37 m2 Edilberto [employer] 10-13-2015 13:24-0400 Height 180.34 cm Edilberto [employer] 10-13-2015 13:24-0400 Pulse (Heart Rate) 108 /min Edilberto SilveiraPsomasFMG 10-13-2015 13:24-0400 Weight 111.81 kg Edilberto [employer] 10-03-2015 11:47-0400 BMI (Body Mass Index) 34.38 kg/m2 Edilberto [employer] 10-03-2015 11:47-0400 Body weight 111.81 kg Ericka Muniz [facility] 10-03-2015 11:47-0400 BP Diastolic 80 mm[Hg] Edilberto [employer] 10-03-2015 11:47-0400 BP Systolic 106 mm[Hg] Edilberto [facility] [employer] 10-03-2015 11:47-0400 BSA (Body Surface Area) 2.37 m2 Edilberto [email or web address] 10-03-2015 11:47-0400 Height 180.34 cm Edilberto [email or web address] 10-03-2015 11:47-0400 Pulse (Heart Rate) 116 /min Edilberto SilveiraPsomasFMG 10-03-2015 11:47-0400 Weight 111.81 kg Edilberto [email or web address] 09-29-2015 12:48-0400 BMI (Body Mass Index) 35.15 kg/m2 Edilberto [email or web address] 09-29-2015 12:48-0400 Body weight 114.31 kg Ericka [email or web address] 09-29-2015 12:48-0400 BP Diastolic 68 mm[Hg] Edilberto [facility] 09-29-2015 12:48-0400 BP Systolic 108 mm[Hg] Edilberto [facility] 09-29-2015 12:48-0400 BSA (Body Surface Area) 2.39 m2 Edilberto Zamora [email or web address] 09-29-2015 12:48-0400 Height 180.34 cm Edilberto Zamora [email or web address] 09-29-2015 12:48-0400 Pulse (Heart Rate) 76 /min Edilberto SilveiraPsomasFMG 09-29-2015 12:48-0400 Weight 114.31 kg Edilberto [employer] 08-26-2015 15:06-0500 Pulse Oximetry 97 % Edilberto [employer] 08-26-2015 15:06-0500 SaO2% (BldA) [Mass fraction] 97 % Ericka Muniz [facility] 08-26-2015 14:14-0500 BMI (Body Mass Index) 36.26 kg/m2 Edilberto [employer] 08-26-2015 14:14-0500 Body Temperature 98.1 [degF] Edilberto [employer] 08-26-2015 14:14-0500 Body weight 117.94 kg Ericka Muniz [facility] 08-26-2015 14:14-0500 BP Diastolic 64 mm[Hg] Edilberto [employer] 08-26-2015 14:14-0500 BP Systolic 100 mm[Hg] Edilberto [employer] 08-26-2015 14:14-0500 BSA (Body Surface Area) 2.43 m2 Edilberto [employer] 08-26-2015 14:14-0500 Height 180.34 cm Edilberto [employer] 08-26-2015 14:14-0500 Pulse (Heart Rate) 112 /min Edil[employer]to[employer] 08-26-2015 14:14-0500 Respiratory Rate 20 /min [employer]to[employer] 08-26-2015 14:14-0500 Weight 117.94 kg EdilbertoSpringr 08-12-2015 13:36-0500 BMI (Body Mass Index) 36.26 kg/m2 Edilberto [employer] 08-12-2015 13:36-0500 Body weight 117.94 kg Ericka Muniz [facility] 08-12-2015 13:36-0500 BP Diastolic 70 mm[Hg] Edilberto [employer] 08-12-2015 13:36-0500 BP Systolic 104 mm[Hg] Edilberto [employer] 08-12-2015 13:36-0500 BSA (Body Surface Area) 2.43 m2 Edilberto [employer] 08-12-2015 13:36-0500 Height 180.34 cm Edilberto [employer] 08-12-2015 13:36-0500 Pulse (Heart Rate) 76 /min Edilberto [employer] 08-12-2015 13:36-0500 Weight 117.94 kg Edilberto [employer] 07-24-2015 13:00-0500 BMI (Body Mass Index) 36.4 kg/m2 Edilberto [employer] 07-24-2015 13:00-0500 Body Temperature 97.6 [degF] Edilberto [employer] 07-24-2015 13:00-0500 Body weight 118.39 kg Ericka Muniz [facility] 07-24-2015 13:00-0500 BP Diastolic 80 mm[Hg] Edilberto [employer] 07-24-2015 13:00-0500 BP Systolic 144 mm[Hg] Edilberto Zamora [email or web address] 07-24-2015 13:00-0500 BSA (Body Surface Area) 2.44 m2 Edilberto [email or web address] 07-24-2015 13:00-0500 Height 180.34 cm Edilberto Zamora [email or web address] 07-24-2015 13:00-0500 Pulse (Heart Rate) 120 /min Edilberto SilveiraPsomasFMG 07-24-2015 13:00-0500 Weight 118.39 kg Edilberto [employer] 06-03-2015 13:38-0500 BMI (Body Mass Index) 35.98 kg/m2 Edilberto Zamora [facility] 06-03-2015 13:38-0500 Body Temperature 98.8 [degF] Edilberto Zamora [employer] 06-03-2015 13:38-0500 Body weight 117.03 kg Ericka [email or web address] 06-03-2015 13:38-0500 BP Diastolic 90 mm[Hg] Edilberto Zamora [facility] 06-03-2015 13:38-0500 BP Systolic 144 mm[Hg] Edilberto Zamora [facility] 06-03-2015 13:38-0500 BSA (Body Surface Area) 2.42 m2 Edilberto [employer] 06-03-2015 13:38-0500 Height 180.34 cm Edilberto Zamora [facility] 06-03-2015 13:38-0500 Pulse (Heart Rate) 84 /min Edilberto SilveiraPsomasFMG 06-03-2015 13:38-0500 Weight 117.03 kg Edilberto Zamora [facility] Encounters Encounter Date Encounter Type Care Provider Facility Start: 12-31-2024 Office outpatient vi sit 25 minutes Cinthia Magana Other [facility] Start: 12-31-2024 Cinthia Lilly m Other [facility] Start: 12-25-2024 Office outpatient vi sit 25 minutes Ericka Muniz Other [facility] Start: 12-25-2024 Ericka Muniz Other [facility] Start: 12-20-2024 End: 12-20-2024 ambulatory Bo Pearce DO Facility:[facility] Start: 08-14-2024 End: 08-14-2024 ambulatory Ericka Muniz MD Work Phone: [facility] Work Phone: Start: 08-14-2024 End: 08-14-2024 Patient encounter procedure Ericka Muniz MD Work Phone: [facility] Work Phone: Start: 07-19-2024 Non-patient / Non-visit Ericka allen MD Work Phone: [facility] Work Phone: Start: 07-19-2024 End: 07-19-2024 Patient encounter procedure Ericka Muniz MD Work Phone: [facility] Work Phone: Start: 07-19-2024 End: 07-19-2024 ambulatory Ericka Muniz MD Work Phone: [facility] Work Phone: Start: 06-21-2024 End: 06-21-2024 ambulatory Ayanna Brooks FACILITIES CLERK-SILK SCREEN OPERATOR Facility:[facility] Start: 06-12-2024 End: 06-12-2024 ambulatory Ayanna Brooks FACILITIES CLERK-SILK SCREEN OPERATOR Facility:[facility] Start: 04-26-2024 Office outpatient vi sit 25 minutes Cinthia Magana Other [facility] Start: 03-21-2024 Ericka Muniz Other [facility] Start: 03-21-2024 Office outpatient vi sit 25 minutes Ericka Muniz [facility] Start: 01-11-2024 End: 01-11-2024 ambulatory Ayanna Brooks FACILITIES CLERK-SILK SCREEN OPERATOR Facility:[facility] Start: 12-14-2023 End: 12-14-2023 Emergency department patient visit RADHA Camposmond Work Phone: [facility] Work Phone: Start: 12-03-2023 End: 12-03-2023 Emergency department patient visit FACILITIES CLERK Mark Alexsandra Work Phone: [facility] Work Phone: Start: 11-14-2023 End: 11-14-2023 Office outpatient visit 25 minutes Ericka Muniz Other [facility] Start: 11-14-2023 Ericka Muniz Other [facility] Start: 11-14-2023 Foot examination performed Ericka Muniz [facility] Start: 08-09-2023 Telephone encounter Shay lal DO Work Phone: [facility] Start: 06-16-2023 End: 06-18-2023 Pre-admission assessment NAYLA OAKES [facility] Start: 01-25-2023 Office outpatient vi sit 15 minutes Ericka Muniz Other [facility] Start: 01-25-2023 Edilberto schmitt Other [facility] Start: 01-25-2023 Foot examination performed Ericka Muniz [facility] Start: 01-25-2023 Office outpatient vi sit 25 minutes Edilberto Zamora Other [facility] Start: 10-27-2022 ambulatory NAYLA OAKES Faci lity:[facility]1 Start: 07-28-2022 End: 07-29-2022 ambulatory NAYLA Ontiveros [facility] Facility:[facility] Start: 07-27-2022 Lab Edilberto Jaimes keshia Other [facility] Start: 07-27-2022 Edilberto Jaimes keshia Other [facility] Start: 07-27-2022 Office Services Ericka Muniz Other [facility] Start: 07-27-2022 Foot examination performed Edilberto Zamora [facility] Start: 07-27-2022 End: 07-27-2022 Office outpatient visit 25 minutes Edilberto Zamora [facility] Start: 06-23-2022 End: 06-24-2022 ambulatory NAYLA Ontiveros [facility] Facility:[facility]1 Start: 05-27-2022 End: 05-27-2022 ambulatory NON STAFF [facility] Work Phone: Start: 05-27-2022 End: 05-27-2022 Discharged Recurring [facility] [place] Start: 05-26-2022 End: 05-26-2022 ambulatory NON STAFF [facility] Work Phone: Start: 05-26-2022 End: 05-26-2022 Patient encounter procedure [facility] [address] Start: 05-05-2022 Registered Recurring [facility] [place] Start: 04-22-2022 End: 04-22-2022 ambulatory NON STAFF [facility] Work Phone: Start: 04-22-2022 End: 04-22-2022 Patient encounter procedure [facility]MRI [facility] [place] Start: 04-21-2022 End: 04-21-2022 ambulatory NON STAFF [facility] Work Phone: Start: 04-21-2022 End: 04-21-2022 Patient encounter procedure [facility] [place] Start: 04-14-2022 Registered Recurring [facility] Start: 04-01-2022 End: 04-01-2022 Emergency department patient visit [facility] Start: 04-01-2022 Office outpatient ne w 20 minutes Franky P Dyana Other [facility] Start: 04-01-2022 Office outpatient vi sit 15 minutes Franky P Dyana Other [facility] Start: 03-16-2022 Office outpatient vi sit 15 minutes Franky P Dyana Other [facility] Start: 02-17-2022 Office outpatient vi sit 15 minutes Franky P Dyana Other [facility] Start: 02-17-2022 Lab Ericka Muniz [facility] Start: 02-17-2022 Ericka Muniz Other [facility] Start: 02-17-2022 Office outpatient vi sit 15 minutes Ericka Muniz [facility] Start: 01-15-2022 Lab Edilberto Jaimes keshia Other [facility] Start: 01-15-2022 Edilberto Jaimes keshia Other [facility] Start: 01-15-2022 Office outpatient vi sit 15 minutes Franky P Dyana Other [facility] Start: 01-15-2022 Foot examination performed Edilberto Zamora [facility] Start: 01-15-2022 Office outpatient vi sit 25 minutes Edilberto Zamora Other [facility] Start: 10-20-2021 Office outpatient vi sit 25 minutes Franky P Dyana [facility] Start: 09-17-2021 Office outpatient ne w 45 minutes Franky Yu Dyana [facility] Start: 09-17-2021 Office Services Franky Yu September and Other [facility] Start: 09-03-2021 Office outpatient vi sit 25 minutes Ericka Muniz [facility] Start: 09-03-2021 Foot examination performed [facility] Start: 09-03-2021 Office outpatient vi sit 25 minutes Edilberto L Zamora Other [facility] Start: 08-18-2021 Lab Edilberto L Schroe keshia Other [facility] Start: 08-18-2021 Medicare Lab Edilberto L Schroe keshia Other [facility] Start: 08-18-2021 Edilberto L Schroe keshia Other [facility] Start: 03-19-2021 Medicare Lab Edilberto L Schroe keshia [facility] Start: 03-19-2021 Edilberto L Schroe keshia Other [facility] Start: 03-19-2021 Foot examination performed [employer] Start: 03-19-2021 Office outpatient vi sit 25 minutes Edilberto L Zamora [facility] Start: 12-23-2020 Lab Ericka Muniz [facility] Start: 12-23-2020 Ericka Muniz Other [facility] Start: 12-23-2020 Office outpatient vi sit 25 minutes Ericka Muniz [facility] Start: 10-20-2020 Encounter for genera l adult medical examination without abnormal findings Ericka Muniz [facility] Start: 09-09-2020 Foot exam performed Edilberto Zamora [facility] Start: 09-09-2020 Office outpatient vi sit 25 minutes Edilbertogavi Zamora Other [facility] Start: 09-09-2020 Medicare Lab Edilberto Jaimes keshia [facility] Start: 09-09-2020 Edilberto L Mareksia keshia Other [facility] Start: 08-05-2020 Office outpatient vi sit 15 minutes Ericka Muniz [facility] Start: 06-12-2020 Office outpatient vi sit 15 minutes Ericka Muniz [facility] Start: 06-04-2020 Office outpatient vi sit 15 minutes Ericka Muniz [facility] Start: 04-08-2020 Medicare Lab Edilberto Jaimes keshia [facility] Start: 04-08-2020 Edilberto Lawrence Mareksia keshia Other [facility] Start: 04-08-2020 Foot exam performed Edilberto Zamora [facility] Start: 04-08-2020 Office outpatient vi sit 25 minutes Edilberto L Zamora Other [facility] Start: 03-25-2020 End: 03-28-2020 Patient encounter procedure MIGNON BRASHERCOMB [facility] Start: 03-25-2020 End: 03-27-2020 Subsequent hospital visit by physician [facility] Mri Scanner [facility] MRI Comment on above: Right knee pain, uns pecified chronicity Start: 02-21-2020 Office outpatient vi sit 15 minutes Ericka Muniz Other [facility] Start: 02-12-2020 End: 02-15-2020 Patient encounter procedure ERICKA MUNIZ [facility] Start: 02-12-2020 End: 02-14-2020 Subsequent hospital visit by physician [facility] Mri Scanner [facility] MRI Comment on above: Acute pain of right shoulder Start: 01-10-2020 Office outpatient vi sit 15 minutes Ericka Muniz Other [facility] Start: 12-28-2019 End: 12-28-2019 Subsequent hospital visit by physician Tess Escalona Work Phone: 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 Laboratory Comment on above: Arrived Start: 12-24-2019 End: 12-25-2019 Patient encounter procedure [facility] Start: 12-24-2019 End: 12-28-2019 Subsequent hospital visit by physician [facility] Covid19 Pat Screening Schedule [facility] EKG Start: 12-20-2019 Lab Edilbertogavi Jaimes keshia Other [facility] Start: 12-20-2019 Edilbertogavi Jarae keshia Other [facility] Start: 11-26-2019 Office outpatient vi sit 15 minutes Eircka Muniz Other [facility] Start: 11-26-2019 Office outpatient vi sit 25 minutes Ericka Muniz Other [facility] Start: 11-19-2019 Lab Ericka Muniz Other [facility] Start: 11-19-2019 Ericka Muniz Other [facility] Start: 08-28-2019 Foot exam performed Edilberto Zamora [employer] Start: 08-28-2019 Office outpatient vi sit 25 minutes Edilberto Zamora Other [facility] Start: 08-21-2019 Lab Edilberto Jaimes keshia Other [facility] Start: 08-21-2019 Edilberto Jaimes keshia Other [facility] Start: 05-28-2019 Encounter for genera l adult medical examination without abnormal findings Edilberto [employer] Start: 05-28-2019 Routine general medi trent examination at a health care facility Ericka Muniz [facility] Start: 05-28-2019 Periodic preventive med est patient 40-64yrs Ericka Muniz Other [facility] Start: 05-22-2019 Lab Ericka Muniz [facility] Start: 05-22-2019 Ericka Muniz Other [facility] Start: 04-17-2019 Foot exam performed Edilberto [employer] Start: 04-17-2019 Office outpatient vi sit 25 minutes Edilberto Zamora Other [facility] Start: 04-12-2019 Follow-up visit Ayden [employer] Start: 04-12-2019 Office outpatient vi sit 5 minutes Ayden [employer] Start: 04-12-2019 Postoperative follow -up visit Edilberto [employer] Start: 04-12-2019 Procedure Ayden bowden Other [facility] [...] medical examination without abnormal findings Edilberto Zamora [facility] Start: 01-25-2019 Routine general medi trent examination at a health care facility Ericka Muniz [facility] Start: 01-25-2019 Office outpatient vi sit 15 minutes Ericka Muniz [facility] Start: 01-02-2019 Office Services Natty schneider Other [facility] Start: 01-02-2019 Natty ureña Other [facility] Start: 12-12-2018 Foot exam performed Edilberto Zamora [facility] Start: 12-12-2018 Office outpatient vi sit 25 minutes Edilberto Zamora Other [facility] Start: 12-08-2018 Lab Edilberto schmitt Other [facility] Start: 12-08-2018 Edilbertogavi Jarae keshia Other [facility] Start: 11-09-2018 Patient encounter procedure LENKA ROQUE [facility] Start: 10-12-2018 Procedure Sasha Morris Other [facility] Start: 10-12-2018 Sasha Morris Other [facility] Start: 10-02-2018 Foot exam performed Edilberto delgado Other [facility] Start: 10-02-2018 Office outpatient vi sit 25 minutes Edilberto Zamora Other [facility] Start: 09-26-2018 Office Services Edilbertogavi Jaimes keshia Other [facility] Start: 09-26-2018 Deilbertogavi Jaimes keshia Other [facility] Start: 08-30-2018 Encounter for genera l adult medical examination without abnormal findings Edilbertogavi [employer] Start: 08-30-2018 Routine general medi trent examination at a health care facility Edilberto Zamora [employer] Start: 08-30-2018 Office outpatient vi sit 25 minutes Ericka Muniz Other [facility] Start: 08-23-2018 Lab Ericka Muniz Other [facility] Start: 08-23-2018 Ericka Muniz Other [facility] Start: 07-27-2018 Office Services Edilberto L Mareke keshia Other [facility] Start: 07-27-2018 Edilberto L Mareke keshia Other [facility] Start: 06-21-2018 Procedure Pedro pitts Other [facility] Start: 06-21-2018 Pedro pitts Other [facility] Start: 06-19-2018 Foot exam performed Edilberto L Sc hroeder Other [facility] Start: 06-19-2018 Office outpatient vi sit 25 minutes Edilberto L Zamora Other [facility] Start: 06-12-2018 Lab Edilberto L Mareke keshia Other [facility] Start: 06-12-2018 Edilberto L Mareke keshia Other [facility] Start: 04-20-2018 Walk-In Ericka Muniz Other [facility] Start: 04-20-2018 End: 04-20-2018 Ericka Muniz Other [facility] Start: 04-20-2018 Office Services Natty schneider Other [facility] Start: 03-20-2018 Foot exam performed Edilberto L Sc hroeder Other [facility] Start: 03-20-2018 Office outpatient vi sit 25 minutes Edilberto L Zamora Other [facility] Start: 03-08-2018 Lab Edilberto L Mareksia keshia [...] vi sit 25 minutes Edilberto Zamora Other [facility] Start: 12-09-2017 Office Services Ericka Muniz [...] Start: 08-09-2017 Office Services Natty schneider Other [facility] Start: 08-09-2017 Natty ureña Other [facility] Start: 08-05-2017 Foot exam performed Edilberto Zamora [facility] Start: 08-05-2017 Office outpatient vi sit 25 minutes Edilberto L Zamora Other [facility] Start: 08-01-2017 Lab Edilberto L Schroe keshia Other [facility] Start: 08-01-2017 Edilberto L Mareke keshia Other [facility] Start: 06-27-2017 Office outpatient vi sit 15 minutes Ericka Muniz Other [facility] Start: 04-05-2017 Foot exam performed Edilbertogavi Thomas hroeder Other [facility] Start: 04-05-2017 Office outpatient vi sit 25 minutes Edilberto L Zamora Other [facility] Start: 03-29-2017 Lab Edilberto L Mareke keshia Other [facility] Start: 03-29-2017 Edilberto Melinda Jarae keshia Other [facility] Start: 03-01-2017 Office outpatient vi sit 25 minutes Ericka Muniz Other [facility] Start: 02-17-2017 End: 02-17-2017 Split Srvc Ericka Muniz Other [facility] Start: 02-17-2017 End: 02-17-2017 Ericka Muniz Other [facility] Start: 02-09-2017 Office outpatient vi sit 25 minutes Ericka Muniz Other [facility] Start: 11-30-2016 Foot exam performed Edilberto L Sc hroeder Other [facility] Start: 11-30-2016 Office outpatient vi sit 25 minutes Edilberto L Zamora Other [facility] Start: 11-23-2016 Lab Edilberto L Schroe keshia Other [facility] Start: 11-23-2016 Edilberto L Schroe keshia Other [facility] Start: 09-28-2016 Office outpatient vi sit 25 minutes Ericka Muniz Other [facility] Start: 09-21-2016 Lab Ericka Muniz Other [facility] Start: 09-21-2016 Ericka Muniz Other [facility] Start: 08-13-2016 Split Srvc Sasha Morris Other [facility] Start: 08-13-2016 Sasha Morris Other [facility] Start: 08-03-2016 Foot exam performed Edilberto L Sc hroeder Other [facility] Start: 08-03-2016 Office outpatient vi sit 25 minutes Edilberto L Zamora Other [facility] Start: 07-27-2016 Lab Edilberto L Schroe keshia Other [facility] Start: 07-27-2016 Edilberto L Schroe keshia Other [facility] Start: 03-31-2016 Office outpatient vi sit 25 minutes Ericka Muniz Other [facility] Start: 03-30-2016 Foot exam performed Edilberto L Sc hroeder Other [facility] Start: 03-30-2016 Office outpatient vi sit 25 minutes Edilberto L Zamora Other [facility] Start: 03-04-2016 Lab Edilberto L Schroe keshia Other [facility] Start: 03-04-2016 Edilberto L Schroe keshia Other [facility] Start: 02-23-2016 Office outpatient vi sit 15 minutes Ericka Muniz Other [facility] Start: 12-23-2015 Office outpatient vi sit 15 minutes Ericka Muniz Other [facility] Start: 12-09-2015 Office outpatient vi sit 15 minutes Ericka Muniz Other [facility] Start: 12-03-2015 Office outpatient vi sit 15 minutes Edilberto Zamora Other [facility] Start: 11-26-2015 Lab Edilberto L Mareke keshia Other [facility] Start: 11-26-2015 Edilberto L Mareke keshia Other [facility] Start: 11-18-2015 Office outpatient vi sit 25 minutes Ericka Muniz Other [facility] Start: 11-07-2015 Lab Edilberto Lawrence Mareke keshia Other [facility] Start: 11-07-2015 Edilberto L Mareke keshia Other [facility] Start: 11-05-2015 Foot exam performed Edilberto delgado Other [facility] Start: 11-05-2015 Office outpatient vi sit 25 minutes Edilberto Melinda JaraZamora Other [facility] Start: 10-29-2015 Lab Edilberto Jaimes keshia Other [facility] Start: 10-29-2015 Edilberto Lawrence Mareksia keshia Other [facility] Start: 10-13-2015 Office outpatient vi sit 15 minutes Ericka Muniz Other [facility] Start: 10-03-2015 Foot exam performed Edilberto Zamora [facility] Start: 10-03-2015 Office consultation new/estab patient 80 min Edilberto Zamora Other [facility] Start: 10-02-2015 Office Services Ericka Muniz Other [facility] Start: 10-02-2015 Ericka Muniz Other [facility] Start: 09-29-2015 Office outpatient vi sit 25 minutes Ericka Muniz Other [facility] Start: 09-24-2015 Procedure Jesus Del Cid Other [facility] Start: 09-24-2015 Jesus Del Cid Other [facility] Start: 08-26-2015 Office consultation new/estab patient 60 min Jesus Del Cid Other [facility] Start: 08-12-2015 Office Services Ericka Muniz Other [facility] Start: 08-12-2015 Ericka Muniz Other [facility] Start: 08-06-2015 Split Srvc Ericka Muniz Other [facility] Start: 08-06-2015 Ericka Muniz Other [facility] Start: 08-05-2015 Lab Ericka Muniz Other [facility] Start: 08-05-2015 End: 08-05-2015 Ericka Muniz Other [facility] Start: 08-05-2015 End: 08-05-2015 Split Srvc Ericka Muniz Other [facility] Start: 07-24-2015 Office outpatient vi sit 15 minutes Lindsay Kimball Other [facility] Start: 06-03-2015 Office outpatient ne w 45 minutes Ericka Muniz Other [facility] Procedures Date Procedure Procedure Detail Performing [...] joints, with or without interface material, prefabricated, [id number]-gsw-llvik Ericka Muniz Start: 03-16-2022 X-ray of left [...] Start: 04-08-2020 Documentation of current medications Ericka uMniz Start: 03-28-2020 Glucose quantitative blood xcpt reagent [...] Muniz Start: 03-20-2016 Aspartate aminotransferase measurement Ericka Muinz Start: 03-20-2016 Basic metabolic panel calcium total [...] of prostate specific antigen total PSA total [email or web address] Start: 06-26-2025 Assay of testosteron e free Total and free testosterone panel by equilibrium dialysis Dema [facility] Start: 06-26-2025 Assay of testosteron e total Total and free testosterone panel by equilibrium dialysis Dema [facility] Start: 06-26-2025 Comprehensive metabo lic panel CMP Dema [facility] Start: 06-26-2025 Hemoglobin glycosyla ramses a1c Hgb A1c Dema [facility] Start: 06-26-2025 Lipid panel Lipid panel [facility] Start: 12-25-2024 Comprehensive metabo lic panel CMP Dema [facility] Start: 12-25-2024 Hemoglobin glycosyla ramses a1c Hgb A1c Dema [facility] Start: 12-25-2024 Lipid panel Lipid panel [facility] Start: 09-18-2024 Comprehensive metabo lic panel Comp [facility] Start: 09-18-2024 Hemoglobin glycosyla ramses a1c A1c Dema [facility] Start: 09-18-2024 Lipid panel Lipid panel [facility] Start: 03-16-2024 Assay of thyroid stimulating hormone tsh TSH Dema [facility] Start: 03-16-2024 Comprehensive metabo lic panel [facility] Start: 03-16-2024 Cyanocobalamin vitam in b-12 B12 level [facility] Start: 03-16-2024 Hemoglobin glycosyla ramses a1c [facility] Start: 03-16-2024 Lipid panel Lipid profile [facility] Start: 11-14-2023 Hemoglobin glycosyla ramses a1c A1c [facility] Start: 2023 Assay of prostate specific antigen total PSA total [facility] Start: 2023 Blood count complete automated CBC PLATELET COUNT; AUTOMATED [facility] Start: 2023 Comprehensive metabo lic panel CMP [facility] Start: 2023 Lipid panel Lipid panel [facility] Start: 07-28-2023 Comprehensive metabo lic panel CMP (comprehensive metabolic panel) [facility] Start: 07-28-2023 Hemoglobin glycosyla ramses a1c HEMOGLOBIN A1C [facility] Start: 07-28-2023 Lipid panel Lipid profile [facility] Start: 03-11-2023 Influenza vaccination Influenza Vacc ine (#1) [facility] Start: 01-25-2023 Assay of prostate specific antigen total PSA, total [facility] Start: 01-25-2023 Blood count complete automated CBC PLATELET COUNT; AUTOMATED [facility] Start: 01-25-2023 Comprehensive metabo lic panel CMP [facility] Start: 01-24-2023 Glucose quantitative blood xcpt reagent strip GLUCOSE [facility] Start: 01-24-2023 Hemoglobin glycosyla ramses a1c HEMOGLOBIN A1C [facility] Start: 01-24-2023 Lipid panel Lipid profile [facility] Start: 01-24-2023 Transferase alanine amino alt sgpt SGPT (ALT) [facility] Start: 07-21-2022 25 hydroxy includes fractions if performed VITAMIN D 25-HYDROXY Dema [facility] Start: 07-21-2022 Assay of parathormone PTH-INTACT B [facility] Start: 07-21-2022 Comprehensive metabo lic panel CMP (comprehensive metabolic panel) [facility] Start: 07-21-2022 Hemoglobin glycosyla ramses a1c HEMOGLOBIN A1C Dema [facility] Start: 07-19-2022 Lipid panel Lipid panel Dema [facility] Start: 05-04-2022 X-ray of left ankle ANKLE COMP LETE X-RAY 3 VIEWS Dema [facility] Start: 04-22-2022 MR Foot - right WO a nd W contrast IV [facility] Start: 04-22-2022 MRI of right foot wi th contrast MR foot RT wo/w con [facility] Start: 04-21-2022 MR Ankle - right WO and W contrast IV [facility] Start: 04-21-2022 MRI of right ankle w ith contrast MR ankle RT wo/w [facility] Start: 04-05-2022 Assay of lactate Lactic acid serum [facility] Start: 04-05-2022 Blood count complete auto&auto difrntl wbc CBC w diff Dema [facility] Start: 04-05-2022 [facility] protein [facility] Start: 04-05-2022 Comprehensive metabo lic panel CMP [email or web address] Start: 04-05-2022 MRI of lower extremity MRI ankle and foot Dema [facility] Start: 04-05-2022 Sedimentation rate r bc non-automated ESR non-auto [facility] Start: 04-01-2022 Duplex scan of lower limb veins US venous duplex LE RT [facility] Start: 04-01-2022 US Lower extremity v ein - right [facility] Work Phone: Start: 03-16-2022 X-ray of left ankle ANKLE COMP LETE X-RAY 3 VIEWS [facility] Start: 03-16-2022 X-ray of left foot FOOT COMPLE TE X-RAY 3 VIEWS [facility] Start: 02-17-2022 Assay of prostate specific antigen total PSA total [facility] Start: 02-17-2022 Comprehensive metabo lic panel Comp [facility] Start: 02-17-2022 Hemoglobin glycosyla ramses a1c A1c [facility] Start: 02-17-2022 Lipid panel Lipid panel [facility] Start: 01-01-2022 Assay of glutamyltra se gamma GAMMA GT [facility] Start: 01-01-2022 Blood count complete automated CBC PLATELET COUNT; AUTOMATED [facility] Start: 01-01-2022 Comprehensive metabo lic panel CMP (comprehensive metabolic panel) [facility] Start: 01-01-2022 Hemoglobin glycosyla ramses a1c HEMOGLOBIN A1C [facility] Start: 09-17-2021 Cul bact xcpt urine blood/stool aerobic isol Wound culture and sensitivity [facility] Start: 09-17-2021 Dup-scan lxtr art/ar tl bpgs uni/lmtd study MARGA w/ segmental pressures and waveforms [facility] Start: 09-17-2021 Non-invas physiologi c std extremity art 2 level MARGA w/ segmental pressures and waveforms [facility] Start: 09-17-2021 Non-invasive physiol ogic study extremity 3 levls MARGA w/ segmental pressures and waveforms [facility] Start: 09-17-2021 Plain X-ray of toe TOES X-RAY 2-3 EWS [facility] Start: 08-18-2021 Blood count complete automated CBC & PLATELET COUNT; AUTOMATED [facility] Start: 08-18-2021 Comprehensive metabo lic panel CMP (comprehensive metabolic panel) [facility] Start: 08-18-2021 Hemoglobin glycosyla ramses a1c A1c [facility] Start: 08-18-2021 Lipid panel LIPID PROFILE [facility] Start: 07-19-2021 Assay of glutamyltra se gamma GAMMA GT [email or web address] Start: 07-19-2021 Basic metabolic pane l calcium total Chem 8 [facility] Start: 07-19-2021 Hemoglobin glycosyla ramses a1c HEMOGLOBIN A1C [facility] Start: 06-24-2021 Blood count complete automated CBC PLATELET COUNT; AUTOMATED [facility] Start: 06-24-2021 Comprehensive metabo lic panel Comp [facility] Start: 06-24-2021 Hemoglobin glycosyla ramses a1c A1c [facility] Start: 06-24-2021 Lipid panel Lipid panel [facility] Start: 03-12-2021 Assay of parathormone PTH-INTACT B [email or web address] Start: 03-12-2021 Assay of phosphorus inorganic Phosphorus, serum [email or web address] Start: 03-12-2021 Blood count complete automated CBC PLATELET COUNT; AUTOMATED [email or web address] Start: 03-12-2021 Comprehensive metabo lic panel CMP (comprehensive metabolic panel) [email or web address] Start: 03-12-2021 HbA1c (Bld) [Mass fraction] HEMOGLOBIN A1C [email or web address] Start: 03-12-2021 Hemoglobin glycosyla ramses a1c HEMOGLOBIN A1C [email or web address] Start: 12-25-2020 Creatinine measurement Creatinine mo nitoring [place], [place] Start: 12-25-2020 Potassium monitoring Potassium monit oring [place] Start: 12-23-2020 Assay of prostate specific antigen total PSA total [facility] Start: 08-08-2020 Comprehensive metabo lic panel CMP (comprehensive metabolic panel) [email or web address] Start: 08-08-2020 HbA1c (Bld) [Mass fraction] HEMOGLOBIN A1C [email or web address] Start: 03-28-2020 Glucose quantitative blood xcpt reagent strip GLUCOSE 2 HR Post Prandial [facility] Start: 03-28-2020 HbA1c (Bld) [Mass fraction] HEMOGLOBIN A1C [email or web address] Start: 03-28-2020 Hepatic function panel LFT (li rosanne function test) [facility] Start: 03-24-2020 Annual Wellness Visi t (AWV) Annual Wellness Visit (AWV) [place], [place] Start: 03-11-2020 Influenza vaccination [place], [place] Start: 12-28-2019 End: 12-28-2019 Hospital Encounter [facility] Comment on above: SHOULDER ARTHROSCOPY ROTATOR CUFF REPAIR, POSSIBLE BICEPS TENDONDESIS Start: 12-28-2019 End: 12-28-2019 Hospital Encounter [facility] Comment on above: SHOULDER ARTHROSCOPY ROTATOR CUFF REPAIR, POSSIBLE [facility]ONDES[facility] Start: 12-27-2019 Basic metabolic pane l calcium total Chem 8 [facility] Start: 12-27-2019 HbA1c (Bld) [Mass fraction] HEMOGLOBIN A1C [facility] Start: 11-27-2019 Comprehensive metabo lic panel Comp [facility] Start: 11-27-2019 HbA1c (Bld) [Mass fraction] A1c [facility] Start: 11-27-2019 Lipid panel Lipid panel [facility] Start: 08-28-2019 Basic metabolic pane l calcium total Chem 8 [facility] Start: 08-18-2019 Basic metabolic pane l calcium total Chem 8 [facility] Start: 08-18-2019 Gamma glutamyl transferase [Catalytic activity/Vol] GGT [facility] Start: 08-18-2019 HbA1c (Bld) [Mass fraction] HEMOGLOBIN A1C [facility] Start: 05-22-2019 Assay of prostate specific antigen total PSA total [facility] Start: 05-22-2019 Blood count complete automated CBC & PLATELET COUNT; AUTOMATED [facility] Start: 05-22-2019 Comprehensive metabo lic panel Comprehensive metabolic panel [facility] Start: 05-22-2019 Lipid panel Lipid panel [facility] Start: 05-22-2019 Urnls dip stick/tabl et rgnt auto w/o microscopy Urinalysis auto [email or web address] Start: 04-17-2019 Im adm prq id subq/i m njxs 1 vaccine Administration of single vaccine [facility] Start: 04-13-2019 Assay of glutamyltra se gamma GAMMA GT [facility] Start: 04-13-2019 Comprehensive metabo lic panel CMP (comprehensive metabolic panel) [facility] Start: 04-13-2019 Hemoglobin A1c/Hemoglobin.total mass fraction (Bld) HEMOGLOBIN A1C [facility] Start: 02-27-2019 Assay of prostate specific antigen total PSA total [facility] Start: 02-27-2019 Blood count complete automated CBC & PLATELET COUNT; AUTOMATED [facility] Start: 02-27-2019 Comprehensive metabo lic panel Comprehensive metabolic panel [facility] Start: 02-27-2019 Hemoglobin A1c/Hemoglobin.total mass fraction (Bld) Hgb A1c [facility] Start: 02-27-2019 Lipid panel Lipid panel [facility] Start: 01-02-2019 Medical nutrition re-assmt&ivntj indiv ea 15 m Medical nutrition therapy; re-assessment and intervention, individual, wsst-um-nxed with the patient, each 15 minutes [email or web address] Start: 09-26-2018 Medical nutrition re-assmt&ivntj indiv ea 15 m Medical nutrition therapy; re-assessment and intervention, individual, owpk-uo-vgce with the patient, each 15 minutes [email or web address] Start: 09-17-2018 Glucose mass conc GLUCOSE [facility] Start: 09-17-2018 Hemoglobin A1c/Hemoglobin.total mass fraction (Bld) HEMOGLOBIN A1C [email or web address] Start: 09-17-2018 Hepatic function panel Liver functio n panel [email or web address] Start: 07-27-2018 Medical nutrition re-assmt&ivntj indiv ea 15 m Medical nutrition therapy; re-assessment and intervention, individual, erxa-jt-qnvr with the patient, each 15 minutes [facility] Start: 04-20-2018 Medical nutrition re-assmt&ivntj indiv ea 15 m Medical nutrition therapy; re-assessment and intervention, individual, pcbj-bt-batf with the patient, each 15 minutes [email or web address] Start: 03-15-2018 Glucose mass conc GLUCOSE [facility] Start: 03-15-2018 Hemoglobin A1c/Hemoglobin.total mass fraction (Bld) HEMOGLOBIN A1C [email or web address] Start: 01-18-2018 Medical nutrition re-assmt&ivntj indiv ea 15 m Medical nutrition therapy; re-assessment and intervention, individual, ypsf-sy-tcdn with the patient, each 15 minutes [facility] Start: 12-13-2017 Hepatic function panel Liver functio n panel [email or web address] Start: 2014 Screening for malign ant neoplasm of colon Colon cancer screen colonoscopy [place], [place] Start: 2014 Shingles Vaccine (1 of 2) Shingles Vaccine (1 of 2) [place], [place] Start: 2004 Diabetes screen Diabetes screen [place], [place] Start: 11-11-1983 DTaP/Tdap/Td vaccine (1 - Tdap) DTaP/Tdap/Td vaccine (1 - Tdap) [place] Start: 11-11-1983 Urine screening for protein Diabetes: Urine Protein Screening [facility] Start: 11-11-1979 HIV screening HIV screen [place], [place] Start: 1974 Glaucoma screening Diabetes: R etinopathy Screening [facility] Start: 1974 Lipid panel Lipid screen [place], [place] Start: 1970 Pneumococcal 0-64 ye ars Vaccine (1 of 1 - PPSV23) Pneumococcal 0-64 years Vaccine (1 of 1 - PPSV23) [place], [place] Start: 1964 Creatinine measurement Creatinine mo nitoring [place], [place] Start: 1964 Hemoglobin A1c measurement Diabetes: Hemoglobin A1C [facility] Start: 1964 Hepatitis C screening Hepatitis C sc reen [place], [place] Start: 1964 Medicare Annual Well ness (AWV) Medicare Annual Wellness (AWV) [facility] Start: 1964 Potassium monitoring Potassium monit [place], [place] Start: 1964 Screening for malign ant neoplasm of colon [facility] Initiate Oxygen Ther apy Protocol Initiate Oxygen Therapy Protocol Respiratory Care Routine Daily until discontinued starting 12/28/2019 [place], [place] Comment on above: Daily until disconti nued starting 12/28/2019 Patient Education [facility] Work Phone: Patient referral [facility] Work Phone: Phase I & II - meter ed glucose Phase I & II - metered glucose Point of Care Testing Routine As Needed until discontinued starting 12/28/2019 [place], [place] Comment on above: As Needed until disc ontinued starting 12/28/2019 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 OBESITY [employer] Immunizations Immunization Date Immunization Notes Care Provider Milla [facility]of 05-08-2024 COVID-19, Moderna, 100mcg/0.5ml [facility] 05-08-2024 hepatitis A and hepatitis B vaccine Cinthia [email or web address] 05-08-2024 measles, mumps and rubella virus vaccine Cinthia [employer] [facility] 05-08-2024 Seasonal trivalent influenza vaccine, adjuvanted, preservative free Cinthia Magana [facility] 08-05-2023 COVID-19, Moderna, 100mcg/0.5ml Ericka Muniz [facility] 08-05-2023 PCV20 Ericka Muniz [facility] 04-28-2022 COVID-19, Pfizer, 30mcg/0.3ml [facility] 04-28-2022 influenza, injectabl e, quadrivalent, contains preservative [facility] 04-28-2022 influenza virus vaccine, unspecified formulation Shay Patterson DO Work Phone: [facility] 12-05-2021 hepatitis A and hepatitis B vaccine Franky [facility] 10-19-2021 hepatitis B vaccine, adult dosage Franky [facility] [employer] [facility] 10-19-2021 zoster vaccine, live Franky [facility] 06-15-2021 COVID-19, Moderna, 100mcg/0.5ml [facility] 10-14-2020 COVID-19, Moderna, 100mcg/0.5ml Edilberto [facility] [facility] 09-12-2020 COVID-19, Moderna, 100mcg/0.5ml Edilberto [facility] [employer] [facility] 04-08-2020 influenza virus vaccine, unspecified formulation; Translations: [Administration of influenza virus vaccine] [facility] 04-08-2020 influenza, high dose seasonal, preservative-free; Translations: [FLU VACC PRSV FREE INC ANTIG] [facility] 04-17-2019 influenza, injectabl e, quadrivalent, contains preservative; Translations: [FLU VACC 4 FRANCISCO 3 YRS PLUS IM] [employer] 04-17-2019 influenza, seasonal, injectable [facility] 04-17-2019 IMMUNIZATION ADMIN; Translations: [IMMUNIZATION ADMIN] [employer] 04-17-2019 Ericka Muniz [facility] 04-20-2018 influenza, seasonal, injectable; Translations: [FLU VACCINE 3 YRS & > IM] [employer] [facility] 04-20-2018 IMMUNIZATION ADMIN; Translations: [IMMUNIZATION ADMIN] [employer] 04-20-2018 Ericka Muniz [facility] 04-05-2017 influenza, seasonal, injectable; Translations: [FLU VACCINE 3 YRS & > IM] [employer] [facility] 04-05-2017 IMMUNIZATION ADMIN; Translations: [IMMUNIZATION ADMIN] [employer] 04-05-2017 Ericka Muniz [facility] 03-31-2016 influenza, seasonal, injectable; Translations: [FLU VACCINE 3 YRS & > IM] [employer] [facility] 03-31-2016 IMMUNIZATION ADMIN; Translations: [IMMUNIZATION ADMIN] [employer] 03-31-2016 Ericka Muniz [facility] Payers Date Payer Category Payer Self-pay 2022 Unknown 2021 Medicaid [id number] 2020 Medicare [facility] MEDICARE ADVANTAGE [facility] MEDICARE ADVANTAGE [id number] 2020-Present [address] [place] [address] [id number] 2019 Medicare [id number]. [id number] 2015 Unknown [id number] 2..840.1.319195.3.441 2015 Unknown EMMA ESTEVEZ [facility] MEDICAID xxxxxxxxxxx 2015-Present [phone] CLAIMS DEPARTMENT [address] [place] [address] xxxxxxxxxxx 1.2.840.847885.1.13.239.2.7.3. [id number] 2014 Unknown [id number] 1964 Unknown [id number] 2..1.509728.3.579.2.903 1964 Unknown [id number] 20.1.909110.3.579.2.173 1964 Unknown [id number] 2.840.1.320616.3.579.2.173 1964 Unknown [id number] 2.840.1.141344.3.579.2.173 1964 Unknown [id number] 2.840.1.509043.3.579.2.173 1964 Unknown [id number] 2.840.1.681211.3.579.2.173 1964 Unknown [id number] 2.16.840.1.933009.3.579.2.173 1964 Unknown [id number] 2.16.840.1.587300.3.579.2.593 1964 Unknown [id number] 2.16.840.1.438465.3.579.2.593 1964 Unknown [id number] 2.16.840.1.697179.3.579.2.593 1964 Unknown [id number] 2.16.840.1.423759.3.579.2.196 1964 Unknown [id number] 2.16.840.1.574790.3.579.2.196 1964 Unknown [id number] 2.16.840.1.721880.3.579.2.196 1964 Unknown [id number] 2.16.840.1.611413.3.579.2.196 1959 Medicaid [id number] 2.16.840.1.051757.3.441 1959 Unknown [id number] 2.16.840.1.463812.3.441 Unknown Daniel / [id number] Unknown [id number] 2.16.840.1.388937.3.579.2.531 Unknown [id number] 2.16.840.1.263574.3.579.2.531 Unknown [id number] 2.16.840.1.689223.3.579.2.531 Social History Date Type Detail Facility Start: [facility] [place] Start: 1-2 cups a day [facility] [place] Start: 12-18-2019 End: 12-27-2022 Tobacco smoking status WYIS Current every day smoker [place], [place] History of tobacco use Cigarette Smoker [place] Start: 12-18-2019 End: 12-27-2022 Cigarettes smoked current (pack per day) - Reported [place] Start: 12-18-2019 End: 12-27-2022 Alcohol intake Current drinker of alcohol (finding) [place] Start: 12-17-2019 Alcohol Comment 3X WEEKLY [place] Start: 1965 Sex Assigned At Not on file [place] Exposure to SARS-CoV -2 (event) Unable to assess [place] Start: 01-01-2020 Tobacco use and exposure Never used [place] Exposure to SARS-CoV -2 (event) Not sure [place] Start: *Tobacco [facility] Start: 04-01-2022 End: 08-14-2024 Tobacco smoking status NHIS Smoker (finding) [facility] Start: 1965 Sex Assigned At Male F [facility] Tobacco smoking status No Smokin g Status Entered [facility] Start: 12-27-2022 Sex Assigned At Male F [facility] Start: 12-23-2022 Tobacco Comment 11-20 cigs a day [facility] Start: 12-23-2022 Alcohol Comment 3-4 drinks 4+ times a week. Caffine intake: 2-3 cups per day [facility] Start: 1/2 ppd [facility] Start: 3 or 4 per day [facility] Start: 2-3 cups a day [facility] Start: 3/4 ppd [facility] Start: 0-2 per day [facility] Start: 07-20-2024 End: 08-14-2024 Sex Male (finding) [facility] Medical Equipment Procedure Code Equipment Code Equipment Origin al Text Equipment Identifier Dates [place] Sut Corks crew Biocomposite 5.5mm [id number] Start: 12-28-2019 [place] Suture Swivelock 4.75x19.1 Biocomposite Min 5ea [id number] Start: 12-28-2019 Button Endoscopi c Bicep 2.6x12mm [id number] Start: 12-28-2019 Clinical Notes 04-14-2022 to 07-19-2024 Telephone Encounter - Shon See - 08/09/2023 9:21 AM ESTTelephone Encounter - Shon See - 08/09/2023 9:21 AM EST Note Date & Type Note Facility 07-19-2024 Procedure note [facility] enter 12-03-2023 Hospital Discharge instructions Additional Instructions Sutures out in 7 to 10 days [facility] Work Phone: 08-09-2023 Telephone encounter Note Patient called stating he fell in the bathroom and has a Q-tip jammed in his ear that will not come out. Per Kaur patient needs to come to [facility] today at 2:30 PM. Patient states he has another appointment and does not think that will work for him. He states he will be calling his other doctor to coordinate. [facility] 08-09-2023 Miscellaneous Notes Patient called stating he fell in the bathroom and has a Q-tip jammed in his ear that will not come out. Per Kaur patient needs to come to [facility] today at 2:30 PM. Patient states he has another appointment and does not think that will work for him. He states he will be calling his other doctor to coordinate. documented in this encounter [facility] 07-28-2022 Note PROCEDURE: XR ANKLE [...] authenticated by: SASHA FLAHERTY Date: 2022-07-28 16:42 [facility] 07-28-2022 Note PROCEDURE: XR ANKLE RT [...] authenticated by: SASHA FLAHERTY Date: 2022-07-28 16:42 [facility] 06-24-2022 Note PROCEDURE: XR ANKLE RT [...] authenticated by: TESS JHAVERI Date: 2022-06-24 06:20 [facility] 06-24-2022 Note PROCEDURE: XR ANKLE RT [...] authenticated by: TESS JHAVERI Date: 2022-06-24 06:20 [facility] 05-05-2022 Progress note Note Date/Time May 05, 2022 2:50pm [facility] [address] [place] [address] Wound Center Provider Note Signed Patient: Geremias Melchor MR#: [id number] : 1965 Acct:[id number] Age/Sex: 56 / M Copies to: NON STAFF Fariha Novak APRN~ HPI Date of Visit Date of Visit: Date of Service: 05/05/2022 Time of Service: 14:47 Narrative HPI: 04/14/22 Geremias is a 56-year-old male presenting to [facility] wound care program for an initial visit [...] is not per se happy with his service learning coordinator in [place] and therefore I did give him the name of a local service learning coordinator who could address his concerns with Charcot [...] wound start?: March 2022 Mode of Arrival/ Turpentiner: Personal vehicle Lives with:: Alone Appetite Description: [...] Appearance: Beefy Red, Epithelial Tissue or Bridge, [place] and Yellow Percent of Wound Bed Granulated/Red: [...] <Electronically signed by RADHA Novak> 05/05/22 1450 [facility] Work Phone: 1(415) 469-947610-05-2022 Progress note Author Fariha Novak [facility] April 14, 2022 2:46pm Note Date/Time April 14, 2022 2: 46pm [facility] [address] [place] [address] Wound Center Provider Note Signed Patient: Geremias Melchor MR#: [id number] : 1965 Acct:[id number] Age/Sex: 56 / M Copies to: NON STAFF Fariha Novak, FACILITIES CLERK~ HPI Date of Visit Date of Visit: Date of Service: 04/14/2022 Time of Service: 14:37 Narrative HPI: 04/14/22 Geremias is a 56-year-old male presenting to [facility] wound care program for an initial visit [...] is not per se happy with his service learning coordinator in [place] and therefore I did give him the name of a local service learning coordinator who could address his concerns with Charcot [...] wound start?: March 2022 Mode of Arrival/ Turpentiner: Personal vehicle Lives with:: Alone Appetite Description: [...] w/o penetration to deeper layers Bed Appearance: [place] and Yellow Percent of Wound Bed Granulated/Red: 90 Percent of Devitalized: 10 Length (cm): 0.5 Width (cm): 0.6 Depth (cm): 0.1 CM Sq: 0.300 Surrounding Tissue Appearance: Callous Surrounding Tissue Temp: Warm Drainage Amount: Small Drainage Description: Serosanguineous Drainage Odor: No Odor Left Plantar Great Toe: Type: Diabetic Ulcer Diabetic Ulcer Grading: Superficial ulcer of skin w/o penetration to deeper layers Bed Appearance: [place] and Yellow Percent of Wound Bed Granulated/Red: 50 Percent of Devitalized: 50 Length (cm): 2.3 Width (cm): 1.5 Depth (cm): 0.1 CM Sq: 3.450 Surrounding Tissue Appearance: Callous Surrounding Tissue Temp: Warm Drainage Amount: Small Drainage Description: Serosanguineous Drainage Odor: No Odor Right Plantar Great Toe: Type: Diabetic Ulcer Diabetic Ulcer Grading: Superficial ulcer of skin w/o penetration to deeper layers Bed Appearance: [place] and Yellow Percent of Wound Bed Granulated/Red: 10 Percent of Devitalized: 90 Length (cm): 2.1 Width (cm): 1.1 Depth (cm): 0.1 CM Sq: 2.310 Surrounding Tissue Appearance: Callous Surrounding Tissue Temp: Warm Drainage Amount: Small Drainage Description: Serosanguineous Drainage Odor: No Odor Right Posterior Heel: Type: Diabetic Ulcer Diabetic Ulcer Grading: Superficial ulcer of skin w/o penetration to deeper layers Bed Appearance: [place] and Yellow Percent of Wound Bed Granulated/Red: [...] <Electronically signed by RADHA Novak> 04/14/22 1446 [facility] Work Phone: Evaluation + Plan note No data available for this section [facility] Work Phone: Evaluation note* Diagnosis Onset Date Resolution Status Diabetic foot ulcer acute Diabetes chronic Hyperlipidemia chronic Neuropathy chronic Tobacco use chronic [facility] Work Phone: Evaluation note* Diagnosis Onset Date Resolution Status Diabetes chronic Diabetic foot ulcer chronic Hyperlipidemia chronic Neuropathy chronic Tobacco use chronic [facility] Work Phone: Evaluation note* Diagnosis Onset Date Resolution Status Diabetes chronic Hyperlipidemia chronic Neuropathy chronic Tobacco use chronic Diabetic foot ulcer resolved [facility] Work Phone: Hospital Discharge instructions Additional Instructions Return for worsening symptoms [facility] Work Phone: Hospital Discharge instructions No data available for this section [facility] Additional Instructions Continue good wound care until completely healed [facility] Work [facility] Progress note Author Fariha Novak [facility] May 27, 2022 2:46pm Note Date/Time May 27, 2022 2:46pm [facility] [address] [place] [address] Wound Center Provider Note Signed Patient: Geremias Melchor MR#: [id number] : 1965 Acct:[id number] Age/Sex: 56 / M Copies to: NON STAFF Fariha Novak, FACILITIES CLERK~ HPI Date of Visit Date of Visit: Date of Service: 05/27/2022 Time of Service: 14:43 Narrative HPI: 04/14/22 Geremias is a 56-year-old male presenting to [facility] wound [facility] program for an initial visit [...] is not per se happy with his service learning coordinator in [place] and therefore I did give him the name of a local service learning coordinator who could address his concerns with Charcot [...] wound start?: March 2022 Mode of Arrival/ Turpentiner: Personal vehicle Lives with:: Alone Appetite Description: [...] <Electronically signed by RADHA Novak> 05/27/22 144 [facility] Work Phone: Progress note No data available for this section [facility] Summary Purpose Family History Relationship Condition Age at Onset Recorded Date/T shannan family member Diabetes mellitus Unknown Advance Directives Documents on File Type Date Recorded 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 Call [phone] forurgent questions after 5PM until 8AM 10. [...] RIGHT WO CONTRAST Mignon Greenwood APRN - SILK SCREEN OPERATOR [address] [place] [address] Status Reason Specialty Diagnoses / Procedures Referre d By Contact Referred To Contact Open Radiology Diagnoses Right knee pain, unspecified chronicity Procedures MRI KNEE RIGHT WO CONTRAST Mignon Greenwood APRN - SILK SCREEN OPERATOR [address] [place] [address] Chief Complaint and Reason for Visit Chief [...] 19, 2024 5: 53pm Ref: Dr. Brooks, [facility] August 14 3:04pm Additional Source Comments (unrecognized sect ion and content) No Status Records FoundNo Status Records FoundNo Status Records FoundNo Status Records FoundNo Status Records FoundNo Status Records FoundNo Status Records Found INFORMATION SOURCE (unrecogn ized section and content) DATE CREATED AUTHOR 11/15/2018 [facility] DATE CREATED AUTHOR AUTHOR'S ORGANIZ ATION 03/28/2020 [facility] DATE CREATED AUTHOR AUTHOR'S ORGANIZ ATION 06/21/2020 [facility] DATE CREATED AUTHOR AUTHOR'S ORGANIZ ATION 2022 [facility] DATE CREATED AUTHOR AUTHOR'S ORGANIZ ATION 06/18/[address] [facility] DATE CREATED AUTHOR AUTHOR'S ORGANIZ ATION 11/29/2024 [facility] DATE CREATED AUTHOR AUTHOR'S ORGANIZ ATION 12/22/2024 [facility] Reason for Visit (unrecogniz ed section and content) Status Reason Specialty Diagnoses / Procedures Referre d By Contact Referred To Contact Diagnoses Unspecified rotator cuff tear or rupture of right shoulder, not specified as traumatic RIGHT SHOULDER ROTATOR CUFF TEAR Procedures UT SHLDR ARTHROSCOP,SURG,W/ROTAT CUFF REPR SHOULDER ARTHROSCOPY ROTATOR CUFF REPAIR, POSSIBLE BICEPS TENDONDESIS Tess Escalona MD [address] [place] [place] [id number] [facility] Status Reason Specialty Diagnoses / Procedures Referre d By Contact Referred To Contact Closed Radiology Diagnoses Pain in right shoulder Procedures HC MRI-UPPER EXT JNT WO CONT Tess Escaolna MD [address] [facility] [address] [place] [address] [facility] [address] [place] [address] Status Reason Specialty Diagnoses / Procedures Referre d By Contact Referred To Contact Closed Radiology Diagnoses Pain in right knee Procedures [facility] MRI LOWER EXTREM JT, W/O CONTRAST Mignon Greenwood, RADHA - SILK SCREEN OPERATOR [address] [place] [address] [facility] [address] [place] [address] Care Teams (unrecognized sec tion and content) [...] Active Fariha Novak APRN Attending Provider Active 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 [facility]. provides no warranty or guarantee of the accuracy or completeness of information in this document.
== END 2025-03-27 11:03 | disposition home or self-care (01) ==
LOC: WC 11:03
PROVIDERS: Visit Provider Podiatrist Foot & Ankle Surgery
DX: E11.621 Type 2 diabetes mellitus with foot ulcer (principal); L97.415 Non-pressure chronic ulcer of right heel and midfoot with muscle involvement without evidence of necrosis; L97.426 Non-pressure chronic ulcer of left heel and midfoot with bone involvement without evidence of necrosis
CPT/HCPCS: 11042; A6213

== ENCOUNTER 2025-04-17 14:08 | Outpatient (OUT) | payer MEDICARE, MEDICAID, SELFPAY ==
--- OUTSIDE RECORDS SUMMARY | 2025-04-17 14:18 | XMS_ITS | CCD ---
Author Organization [facility] Inform ion Partnership [facility] Care Team Providers Care Databases Software Consultant Name Role Phone LENKA ROQUE Attending Unavailable ERICKA MONTIEL Primary Care UnavailEdilberto Rod Primary Care Physician Ericka Dotson Unavailable Unavailable Ericka Muniz Primary Care Physician Unavailab le Trudy, Ayden Primary Care Physician Unavail able Trudy, Ayden Primary Care Physician Unavail able Trudy, Ayden Primary Care Physician Unavail able Edilberto Zamora Primary Care Physician Ericka Dotson Primary Care Physician UnavailEdilberto Herron Primary Care Physician Ericka Dotson Primary Care Physician Unavailab Ericka David Primary Care Physician Unavailab Ericka David Primary Care Provider [phone] Edilberto Zamora Primary Care Physician Edilberto Pendleton [...] le Zamora, Edilberto L Primary Care Physician Farhat Zamora, Edilberto L Primary Care Physician Unavai labsolomon Zamora, Edilberto L Primary Care Physician Unavai lable Flavio, Ericka Shah Primary Care Physician Unavailab solomon Muniz, Ericka Shah Unavailable Unavailable Sera, Edilberto L Primary Care Physician Unavai labsolomon Zamora, Edilberto L Primary Care Physician Unavai labsolomon Zamora, Edilberto L Primary Care Physician Unavadanielle Muniz, Ericka Shah Primary Care Physician Unavailab solomon [facility], Franky P Primary Care Physician Unavai lable Dyana, Franky P Primary Care Physician Unavai lable Dyana, Franky P Primary Care Physician Unavai labsolomon Zamora, Edilberto L Primary Care Physician Unavai labsolomon Zamora, Edilberto L Primary Care Physician Unavai corinne Muniz, Ericka Shah Primary Care Physician Unavailab solomon Dyana, Franky P Primary Care Physician Unavai lable [facility], Franky P Primary Care Physician Unavai lable [facility], Franky Yu Primary Care Physician Unavai lable NON STAFF Primary Care Provider UnavailSOLE Short Emergency Provider [phone] RADHA Novak Attending Provider [facility], CHERYL Yu Attending Provider NON STAFF Primary Care Provider UnavailSOLE Short Emergency Provider [facility], CHERYL Yu Attending Provider RADHA Novak Attending Provider [phone] [facility] RADHA Novak Attending Provider Edilberto Zamora Primary Care Physician Farhat Zamora, Edilberto L Primary Care Physician NAYLA Turner Admitting Unavailable SASHA FLAHERTY Consulting Unavailable NAYLA OAKES Attending Unavailable NAYLA OAKES Consulting Unavailable NAYLA OAKES Admitting Unavailable DR TESS JHAVERI Consulting Unavailable NAYLA OAKES Attending Unavailable NAYLA OAKES Consulting Unavailable NAYLA OAKES Attending Unavailable NAYLA OAKES Admitting Unavailable Shay Han DO Unavailable Flavio WHEELER, Jignesh Ontiveros Primary Care Provider Ericka Muniz Primary Care Physician Unavailab Ericka David Primary Care Physician Unavailab RADHA Ayers Emergency Provider MD Ericka Muniz Primary Care Provider Gregg, LAMP [employer]KER- Missy Galan Emergency Provider Ericka Muniz Primary Care Physician Unavailab Cinthia Kaba Primary Care Physician Unavailcameron Muniz MD, Ericka [...] Todd YEE, Ayanna Fabian Attending Un available Flavio WHEELER, Ericka Lane Primary Care Unavailable Todd YEE, Ayanna Fabian Attending Un available Ericka Muniz MD Primary Care Unavailable Todd YEE, Ayanna Fabian Attending Un available Ericka Muniz MD Primary Care Unavailable Todd YEE, Ayanna Fabian Attending Un available Ericka Muniz MD Primary Care Unavailable Bo Pearce DO Referring Unavaila Ericka Lynch Primary Care Physician UnavailCinthia López Primary Care Physician UnavailJignesh Sharpe NP Primary Care Provider [phone] KIMMIE YARBROUGH Attending Unavailable Medications Current Medications Medication Drug Class(es) [...] MG PO Daily April 13, 2022 11:00pm ASPIRIN 81 PO Ac tive ASPIRIN 81 PO As pirin 81 Active take 1 tablet by mouth once gogo y take 1 tablet (81 mg) by oral route once daily ASPIRIN 81 PO As pirin 81 0 Active atorvastatin 20 mg oral tablet (20 sources) HMG-CoA Reductase Inhibitor Start: 03-13-2025 take 1 tablet by mouth once daily atorvastatin (Lipitor) 20 MG tablet Take 20 mg by mouth Daily 03/13/2025 Active Start: 12-31-2024 take 1 tablet by jina th once [...] by oral route once daily at bedtime calcium chloride 0.0014 meq/ml / potassium chloride 0.004 meq/ml / sodium chloride 0.103 meq/ml / sodium lactate 0.028 meq/ml injectable solution (1 source) Start: 12-28-2019 lactated ringe rs infusion 2 ml fentaNYL 0.05 mg/ml injection (2 sources) Opioid Agonist Start: 12-28-2019 fentaNYL (SUBL IMAZE) injection 50 mcg Start: 12-28-2019 fentaNYL (SUBL IMAZE) injection 25 mcg 30 actuat fluticasone furoate 0.1 mg/actuat / umeclidinium 0.0625 mg/actuat / vilanterol 0.025 mg/actuat dry powder inhaler (3 sources) Anticholinergic, Corticosteroid, beta2-Adrenergic Agonist Start: 11-12-2024 take 1 puff(s) by inhalation once daily Trelegy Ellipta 100-62.5-25 MCG/ACT aerosol powder INHALE 1 PUFF ONCE DAILY 11/12/2024 Active Start: 08-14-2024 Fluticasone-Um eclidin-Vilanter (Trelegy Ellipta) 100-62.5-25 mcg blister with device Active 1 INH INHALATION Daily 60 August 14, 2024 12:00am gabapentin 800 mg oral tablet (20 sources) Anti-epileptic Agent Start: 11-30-2024 End: 05-29-2025 take 1 tablet by mouth three times [...] ontin) 800 MG tablet every 8 (eight) hours Active Insulin Lispro (1 Unit Dial) 100 [...] mg ammonium lactate 120 mg/ml topical cream (4 sources) Start: 05-25-2022 ammonium lactate (Amlactin) 12 % cream 1 application every 12 (twelve) hours. 05/25/2022 Active lisinopril 10 mg oral tablet (20 sources) Angiotensin Converting Enzyme Inhibitor Start: 02-04-2025 take 1 tablet by mouth once daily lisinopril 10 MG tablet Take 10 mg by mouth Daily 02/04/2025 Active Start: 08-14-2024 take 1 tablet by jina th once daily Lisinopril 10 mg tablet Active [...] Start: 03-01-2018 take 1 tablet by jina three times daily metformin 500 mg oral tablet 06/11/2019 TAKE ONE TABLET BY MOUTH THREE TIMES DAILY Start: 08-26-2015 End: 10-03-2015 take 1 tablet by mouth twice daily at dinner take 1 tablet (500 mg) by oral route 2 times per day with morning and evening meals metFORMIN (Gluco phage) 500 MG tablet every 8 (eight) hours Active 2 ml metoclopramide 5 mg/ml prefilled syringe (1 source) Dopamine-2 Receptor Antagonist Start: 12-28-2019 End: 12-28-2019 metoclopramide (REGLAN) injection 10 mg omega-3 acid ethyl esters (senior living) 1200 mg oral capsule (6 sources) Rupert-3 Fatty Acids (FISH OIL) 1200 MG CAPS Take by mouth daily 0 Active Rupert-3 Fatty Acids (FISH OIL) 1200 MG CAPS (1 source) Rupert-3 Fatty Acids (FISH OIL) 1200 MG CAPS [...] e flush 0.9 % injection 10 mL Syringe, Disposable, 3 ML misc (2 sources) Start: 04-08-2025 End: 07-07-2025 Syringe, Disposable, 3 ML misc 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 56 tablet 0 12/28/2019 01/04/2020 Active [id number] 200 actuat albuterol 0.09 mg/actuat metered dose [...] Start: 11-11-2023 take 1 puff(s) by mo ut every six hours as needed INHALE 1 PUFF BY MOUTH EVERY 6 HOURS NEEDED Start: 05-11-2022 take 1 puff(s) by mo ut every six hours as needed Ventolin HFA 90 mcg/actuation aerosol inhaler 05/11/2022 INHALE 1 PUFF BY MOUTH EVERY 6 HOURS NEEDED Start: 03-06-2021 take 1 puff(s) by mo uth every six hours as needed Ventolin HFA 90 mcg/actuation aerosol inhaler 03/06/2021 INHALE 1 PUFF BY MOUTH EVERY 6 HOURS NEEDED Start: 10-20-2020 take 1 puff(s) by mo ut every six hours as needed Ventolin HFA 90 mcg/actuation inhalation HFA aerosol inhaler 10/20/2020 INHALE 1 PUFF BY MOUTH EVERY 6 HOURS NEEDED Start: 04-23-2020 take 1 puff(s) by mo [facility] every six hours as needed Ventolin HFA 90 mcg/actuation inhalation HFA aerosol inhaler 04/23/2020 INHALE 1 PUFF BY MOUTH EVERY 6 HOURS NEEDED Start: 03-14-2019 take 1 puff(s) by mo [facility] every six hours as needed Ventolin HFA 90 mcg/actuation inhalation HFA aerosol inhaler 03/14/2019 INHALE 1 PUFF BY MOUTH EVERY 6 HOURS NEEDED Start: 10-05-2017 take 1 puff(s) by mo [facility] every six hours as needed Ventolin [...] route every 6 hours as needed duplicate take 1 puff(s) by mo [facility] every six hours as needed albuterol HFA 90 mcg/act inhaler INHALE 1 PUFF BY MOUTH EVERY 6 HOURS NEEDED Active ALPRAZolam 1 mg oral tablet (20 sources) [...] 3:12pm Start: 08-25-2020 [facility] alprazolam 1 mg oral [...] by oral route 3 times per day 24 hr buPROPion hydrochloride 150 mg extended [...] pm Start: 11-06-2015 take 8 tablets by mo ut in the morning, then take 1 tablet [...] by oral route once daily at bedtime doxepin (SINEqua n) 150 MG capsule 1 application as needed Orally at bedtime Active DULoxetine 60 mg delayed release oral capsule [...] route daily FLUoxetine 10 mg oral capsule (15 sources) Serotonin Reuptake Inhibitor Start: 11-15-2024 take 1 capsule by mouth once daily take 1 capsule (10 mg) by oral route once daily for 30 days Start: 12-03-2023 Fluoxetine Act rahel MG December 03, 2023 12:00am Start: 11-14-2023 take 1 capsule by mo [facility] once daily Fluoxetine 10 mg capsule Active [...] Start: 04-14-2022 take 1 tablet by jina once daily Furosemide 20 mg Tablet Active 20 MG PO Daily April 13, 2022 11:00pm Start: 12-23-2020 take 1 tablet by jina th once daily furosemide 20 mg oral tablet 09/03/2021 TAKE 1 TABLET BY MOUTH ONCE DAILY Start: 10-09-2019 take 1 tablet by jina once daily furosemide 20 mg oral tablet [...] Per LLS ok to change to Basaglar Lantus SoloStar 100 UNIT/ML pen INJECT 25 UNITS SUBCUTANEOUSLY IN THE MORNING. PRIME PUMP WITH 2 UNITS BEFORE EACH USE Active insulin glargine (LANTUS;BASAGLAR) 100 UNIT/ML injection pen [...] 06-10-2022 insulin lispro (HumaLOG) 100 UNIT/ML injection 06/10/2022 Active Start: 04-14-2022 inject 12 [IU] by jacques [...] Start: 04-14-2022 take 1 tablet by jina once daily Meloxicam 15 mg Tablet Active 15 MG PO Daily April 13, 2022 11:00pm Start: 05-29-2021 take 1 tablet by jina once daily [...] Start: 03-21-2024 take 2 tablets by mo [facility] once daily take 2 tablets (100 mg) [...] times a day [facility] metoprolol tartrate (LOPRESSOR) 25 MG tablet Take 25 mg by mouth 2 times daily 0 Active mupirocin 0.02 mg/mg topical ointment (20 sources) RNA Synthetase Inhibitor Antibacterial Start: 01-18-2022 End: 02-01-2022 apply a small amount to the 4th by topical route 2 times per day for 14 days, cover with bandage Start: 01-18-2022 mupirocin (Jolly troban) 2 % ointment 01/18/2022 Active Start: 09-17-2021 End: 10-01-2021 mupirocin 2 % topical ointme nt 09/17/2021 10/01/2021 apply a small amount to the 4th by topical route 2 times per day for 14 days, cover with bandage Rupert-3 Fatty Acids (Fish Oil) Capsule (8 sources) Start: 04-14-2022 End: 12-03-2023 take 1 capsule by mouth once daily Rupert-3 Fatty Acids (Fish Oil) Capsule Discontinued 1000 MG PO Daily April 13, 2022 11:00pm December 03, 2023 3:38pm Start: 04-14-2022 End: 12-03-2023 take 1 capsule by mouth once daily Rupert-3 Fatty Acids (Fish Oil) Capsule Discontinued 1000 MG PO Daily April 14, 2022 12:00am December 03, 2023 4:38pm Start: 04-14-2022 take 1 capsule by mo [facility] once daily Rupert-3 Fatty Acids (Fish Oil) Capsule Active 1000 MG PO Daily April 13, 2022 11:00pm Start: 04-14-2022 take 1 capsule by mo [facility] once daily Rupert-3 Fatty Acids (Fish Oil) Capsule Active 1000 [...] Start: 03-01-2017 take 2 tablets by mo uth once daily Vitamin B-12 1,000 mcg oral tablet extended release 03/01/2017 take 2 tablets by oral route daily Cyanocobalamin ( VITAMIN B-12) 5000 MCG TBDP Take by mouth daily 0 Active Problems Active Problems Problem Classification Problem Date Documented Date Episodic/Chronic Administrative/soci al admission (2 sources) Patient encounter status; Translations: [Dietary counseling and surveillance] 04-08-2025 Episodic Alcohol-related disorders (20 sources) Alcohol abuse, unspecified; [...] peripheral vascular diseases Onset: 2 Chronic Other endocrine disorders (2 sources) Male hypogonadism; Translations: [Testicular hypofunction] 04-08-2025 Chronic Other liver diseases (20 sources) Fatty [...] (20 sources) Hypercalcemia Onset: 1 Chronic Other nutritional; endocrine; and metabolic disorders (2 sources) Obesity caused by energy imbalance; Translations: [Class 1 obesity due to excess calories without serious comorbidity with body mass index (BMI) of 34.0 to 34.9 in adult] 04-08-2025 Chronic Other upper respiratory disease (20 sources) [...] - finding; Translations: [Tobacco use] 04-14-2022 Episodic Residual codes; unclassified (2 sources) Reduced libido; Translations: [Decreased libido] 04-08-2025 Episodic Sprains and strains (5 sources) Traumatic [...] By: Jakob Torres on 07-19-2024 Study report [facility] [place] [address] XRay Report Signed Patient: Geremias Melchor MR#: [id number] : 1965 Acct:[id number] Age/Sex: 58 / M ADM Date: 5 Loc: RT Room: Type: [facility] Attending Dr: Ayanna CAMPOS Copies to: BETH [...] CONSOLIDATION TO SUGGEST PNEUMONIA. Impression dictated by: Fallon Henderson Jr.OMelva07/19/2024 4:33 PM Dictation Location: [id number] Transcribed By: KINJAL 07/19/24 1633 Dictated By: Dionte Torres Jr, DO 07/19/24 1633 Signed By: 07/19/24 1633 [facility] XR chest 2V*on 07-19-2024 XR chest 2V* [facility] [place] [address] [place] [address] XRay Report Signed Patient: Geremias Melchor MR#: [id number] : 1965 Acct:[id number] Age/Sex: 58 / M ADM Date: 07/19/24 Loc: RT Room: Type: [facility] Attending Dr: Ayanna CAMPOS Copies to: BETH [...] Working t (more content not included)... Normal [facility] Cardiac Echocardiogram Trans thoracicon 01-13-2024 Cardiac Echocardiogram Transthoracic TRANSTHORACIC ECHOCARDIOGRAM Study Date/Time: Jan 11 2024 3:48PM BP: 148 / 90 HR: 88 bpm HT/WT: 180.3 cm (71 in) / 108.9 kg (239.5 lb) BSA/BMI: 2.28 m^2 / 33.5 kg/m^2 ORDERING PROVIDER: Ayanna Brooks INTERPRETING PHYSICIAN: Bo Pearce DO CHANGE ANALYST: Vonda Paige RDCS, Jorge Luis ---- INDICATIONS: Dyspnea. ---- CONCLUSIONS SUMMARY: 1. [...] am Signed (more content not included)... Normal [facility] Comment on above: Order Comment: merrill [facility] Laboratory - Chemistry and David hemistry - challengeon 11-14-2023 Albumin (U) [Mass/Vol] 21.2 Invalid Interpretation Code <17.0 [facility] Albumin [Mass/Vol] 4.60 g/dL Invalid Interpretation Code 3.7-5.0 [facility] Albumin/Creatinine DL <= 20 mg/L (U) [Mass ratio] 43.1 mg/g Invalid Interpretation Code 0.0-30.0 [facility] Albumin/Globulin [Mass ratio] 1.3 {ratio} Invalid Interpretation Code 1.0-2.4 [facility] ALP [Catalytic activity/Vol] 83.0 U/L Invalid Interpretation Code 31-155 [facility] ALT [Catalytic activity/Vol] 51.0 U/L Invalid Interpretation Code 0-50 [facility] Anion gap [Moles/Vol] 14 mmol/L Invalid Interpretation Code 10-20 [facility] AST [Catalytic activity/Vol] 41.0 U/L Invalid Interpretation Code 0-40 [facility] Bilirubin [Mass/Vol] 0.30 mg/dL Invalid Interpretation Code 0.0-1.0 [facility] Bilirubin Ql (U) Negative Invalid Interpretation Code Negative [facility] Calcium [Mass/Vol] 10.40 mg/dL Invalid Interpretation Code 8.5-10.8 [facility] Chloride [Moles/Vol] 102.0 mmol/L Invalid Interpretation Code 100-112 [facility] Cholesterol [Mass/Vol] 236.0 mg/dL Invalid Interpretation Code 0-200 [facility] Cholesterol in HDL [Mass/Vol] 53.0 mg/dL Invalid Interpretation Code 36-100 [facility] Cholesterol in LDL [Mass/Vol] 146.0 mg/dL Invalid Interpretation Code 0-130 [facility] Cholesterol in VLDL [Mass/Vol] 37.0 mg/dL Invalid Interpretation Code 0-39 [facility] Cholesterol.total/C holesterol in HDL [Mass ratio] 4 {ratio} Invalid Interpretation Code [facility] CO2 [Moles/Vol] 25.0 mmol/L Invalid Interpretation Code 23-30 [facility] Creatinine (U) [Mass/Vol] 49.20 mg/dL Invalid Interpretation Code Not Estab. mg/dL [facility] Creatinine [Mass/Vol] 1.10 mg/dL Invalid Interpretation Code 0.5-1.5 [facility] Glucose [Mass/Vol] 159.0 mg/dL Invalid Interpretation Code 80-117 [facility] Ketones Ql (U) Negative Invalid Interpretation Code Negative [facility] pH (U) 6 [pH] Invalid Interpretation Code 5.0-9.0 [facility] Potassium [Moles/Vol] 4.40 mmol/L Invalid Interpretation Code 3.5-5.3 [facility] Protein [Mass/Vol] 8.20 g/dL Invalid Interpretation Code 6.3-7.9 [facility] Sodium [Moles/Vol] 137.0 mmol/L Invalid Interpretation Code 135-148 [facility] Specific gravity (U) [Rel density] 1.010 Invalid Interpretation Code 1.003-1.030 [facility] Triglyceride [Mass/Vol] 184.0 mg/dL Invalid Interpretation Code 30-150 [facility] Urea nitrogen [Mass/Vol] 16.0 mg/dL Invalid Interpretation Code 7-25 [facility] Urea nitrogen/Creatinine [Mass ratio] 15 mg/mg Invalid Interpretation Code 6-20 [facility] Urobilinogen (U) [Mass/Vol] normal Invalid Interpretation Code normal [facility] Laboratory - Hematology and Cell countson 11-14-2023 Erythrocyte distribution width (RBC) [Ratio] 12.60 % Invalid Interpretation Code 11.5-15.5 [facility] HbA1c (Bld) [Mass fraction] 6.80 % Invalid Interpretation Code 4.3-6.3 [facility] Hematocrit (Bld) [Volume fraction] 46.80 % Invalid Interpretation Code 37.8-51.0 [facility] Hemoglobin (Bld) [Mass/Vol] 15.70 g/dL Invalid Interpretation Code 12.6-17.0 [facility] Hemoglobin Ql (U) Negative Invalid Interpretation Code Negative [facility] MCH (RBC) [Entitic mass] 32.80 pg Invalid Interpretation Code 25.7-33.8 [facility] MCHC (RBC) [Mass/Vol] 33.50 g/dL Invalid Interpretation Code 32.0-36.0 [facility] MCV (RBC) [Entitic vol] 97.70 fL Invalid Interpretation Code 81.0-100.2 [facility] Platelet mean volume (Bld) [Entitic vol] 9.70 fL Invalid Interpretation Code 8.3-11.5 [facility] Platelets (Bld) [#/Vol] 240.0 10*3/uL Invalid Interpretation Code 150-400 [facility] RBC (Bld) [#/Vol] 4.790 10*6/uL Invalid Interpretation Code 4.34-5.61 [facility] WBC (Bld) [#/Vol] 6.90 10*3/uL Invalid Interpretation Code 3.9-10.3 [facility] Laboratory - Specimen inform ationon 11-14-2023 Clarity (U) Clear Invalid Interpretation Code Clear [facility] Color (U) yellow Invalid Interpretation Code yellow [facility] Laboratory - Urinalysison Glucose Test strip (U) [Mass/Vol] 4+ Invalid Interpretation Code Negative [facility] Leukocyte esterase Test strip Ql (U) Trace Invalid Interpretation Code Negative [facility] Nitrite Ql (U) Negative Invalid Interpretation Code Negative [facility] Protein Ql (U) 1+ Invalid Interpretation Code Negative [facility] No Panel Informationon 11-13 148.0 mg/dL Invalid Interpretation Code [facility] 77 Invalid Interpretation Code [facility] No Panel Informationon 08-01 Tobacco smoking status Current Tobacco User Invalid Interpretation Code [facility] Diabetic Retinal Eye Exam Invalid Interpretation Code [facility] Physician Orderon 06-16-2023 Physician Order [id number] F Normal [facility] Laboratory - Chemistry and C hemistry - challengeon 01-25-2023 Albumin (U) [Mass/Vol] < 12.0 Invalid Interpretation Code < 17.0 ug/mL [facility] Albumin [Mass/Vol] 4.50 g/dL Invalid Interpretation Code 3.7-5.0 [facility] Albumin/Globulin [Mass ratio] 1.4 {ratio} Invalid Interpretation Code 1.0-2.4 [facility] ALP [Catalytic activity/Vol] 93.0 U/L Invalid Interpretation Code 31-155 [facility] ALT [Catalytic activity/Vol] 62.0 U/L Invalid Interpretation Code 0-50 [facility] Anion gap [Moles/Vol] 16 mmol/L Invalid Interpretation Code 10-20 [facility] AST [Catalytic activity/Vol] 46.0 U/L Invalid Interpretation Code 0-40 [facility] Bilirubin [Mass/Vol] 0.40 mg/dL Invalid Interpretation Code 0.0-1.0 [facility] Bilirubin Ql (U) Negative Invalid Interpretation Code Negative [facility] Calcium [Mass/Vol] 10.20 mg/dL Invalid Interpretation Code 8.5-10.8 [facility] Chloride [Moles/Vol] 99.0 mmol/L Invalid Interpretation Code 100-112 [facility] Cholesterol [Mass/Vol] 212.0 mg/dL Invalid Interpretation Code 0-200 [facility] Cholesterol in HDL [Mass/Vol] 49.0 mg/dL Invalid Interpretation Code 36-100 [facility] Cholesterol in LDL [Mass/Vol] 135.0 mg/dL Invalid Interpretation Code 0-130 [facility] Cholesterol in VLDL [Mass/Vol] 28.0 mg/dL Invalid Interpretation Code 0-39 [facility] Cholesterol.total/C holesterol in HDL [Mass ratio] 4 {ratio} Invalid Interpretation Code [facility] CO2 [Moles/Vol] 26.0 mmol/L Invalid Interpretation Code 23-30 [facility] Creatinine (U) [Mass/Vol] 75.30 mg/dL Invalid Interpretation Code Not Estab. mg/dL [facility] Creatinine [Mass/Vol] 1.10 mg/dL Invalid Interpretation Code 0.5-1.5 [facility] Glucose [Mass/Vol] 111.0 mg/dL Invalid Interpretation Code 80-117 [facility] Ketones Ql (U) Negative Invalid Interpretation Code Negative [facility] pH (U) 6 [pH] Invalid Interpretation Code 5.0-9.0 [facility] Potassium [Moles/Vol] 4.70 mmol/L Invalid Interpretation Code 3.5-5.3 [facility] Prostate specific Ag [Mass/Vol] 0.94 ng/mL Invalid Interpretation Code 0.00-4.00 [facility] Protein [Mass/Vol] 7.80 g/dL Invalid Interpretation Code 6.3-7.9 [facility] Sodium [Moles/Vol] 136.0 mmol/L Invalid Interpretation Code 135-148 [facility] Specific gravity (U) [Rel density] 1.015 Invalid Interpretation Code 1.003-1.030 [facility] Triglyceride [Mass/Vol] 141.0 mg/dL Invalid Interpretation Code 30-150 [facility] Urea nitrogen [Mass/Vol] 20.0 mg/dL Invalid Interpretation Code 7-25 [facility] Urea nitrogen/Creatinine [Mass ratio] 18 mg/mg Invalid Interpretation Code 6-20 [facility] Urobilinogen (U) [Mass/Vol] normal Invalid Interpretation Code normal [facility] Laboratory - Hematology and Cell countson 01-25-2023 Erythrocyte distribution width (RBC) [Ratio] 12.10 % Invalid Interpretation Code 11.5-15.5 [facility] HbA1c (Bld) [Mass fraction] 6.60 % Invalid Interpretation Code 4.3-6.3 [facility] Hematocrit (Bld) [Volume fraction] 43.70 % Invalid Interpretation Code 37.8-51.0 [facility] Hemoglobin (Bld) [Mass/Vol] 14.90 g/dL Invalid Interpretation Code 12.6-17.0 [facility] Hemoglobin Ql (U) Negative Invalid Interpretation Code Negative [facility] MCH (RBC) [Entitic mass] 32.50 pg Invalid Interpretation Code 25.7-33.8 [facility] MCHC (RBC) [Mass/Vol] 34.10 g/dL Invalid Interpretation Code 32.0-36.0 [facility] MCV (RBC) [Entitic vol] 95.40 fL Invalid Interpretation Code 81.0-100.2 [facility] Platelet mean volume (Bld) [Entitic vol] 9.20 fL Invalid Interpretation Code 8.3-11.5 [facility] Platelets (Bld) [#/Vol] 225.0 10*3/uL Invalid Interpretation Code 150-400 [facility] - [facility] RBC (Bld) [#/Vol] 4.580 10*6/uL Invalid Interpretation Code 4.34-5.61 [facility] WBC (Bld) [#/Vol] 8.0 10*3/uL Invalid Interpretation Code 3.9-10.3 [facility] Laboratory - Specimen inform ationon 01-25-2023 Clarity (U) Clear Invalid Interpretation Code Clear [facility] Color (U) yellow Invalid Interpretation Code yellow [facility] Laboratory - Urinalysison Glucose Test strip (U) [Mass/Vol] 4+ Invalid Interpretation Code Negative [facility] Leukocyte esterase Test strip Ql (U) Negative Invalid Interpretation Code Negative [facility] Nitrite Ql (U) Negative Invalid Interpretation Code Negative [facility] Protein Ql (U) Negative Invalid Interpretation Code Negative [facility] No Panel Informationon 01-25 78 Invalid Interpretation Code [facility] 143.0 mg/dL Invalid Interpretation Code [facility] No Panel Informationon 01-24 Tobacco smoking status Current Tobacco User Invalid Interpretation Code [facility] - Chemistry and C hemistry - challengeon 07-27-2022 25-hydroxyvitamin D3 [Mass/Vol] 26.8 ng/mL Invalid Interpretation Code 30.0-100.0 [facility] Albumin (U) [Mass/Vol] < 12.0 Invalid Interpretation Code < 17.0 ug/mL [facility] Albumin [Mass/Vol] 4.50 g/dL Invalid Interpretation Code 3.7-5.0 [facility] Albumin/Globulin [Mass ratio] 1.3 {ratio} Invalid Interpretation Code 1.0-2.4 [facility] ALP [Catalytic activity/Vol] 74.0 U/L Invalid Interpretation Code 31-155 [facility] ALT [Catalytic activity/Vol] 24.0 U/L Invalid Interpretation Code 0-50 [facility] Anion gap [Moles/Vol] 16 mmol/L Invalid Interpretation Code 10-20 [facility] AST [Catalytic activity/Vol] 14.0 U/L Invalid Interpretation Code 0-40 [facility] Bilirubin [Mass/Vol] 0.30 mg/dL Invalid Interpretation Code 0.0-1.0 [facility] Bilirubin Ql (U) Negative Invalid Interpretation Code Negative [facility] Calcium [Mass/Vol] 10.20 mg/dL Invalid Interpretation Code 8.5-10.8 [facility] Chloride [Moles/Vol] 96.0 mmol/L Invalid Interpretation Code 100-112 [facility] Cholesterol [Mass/Vol] 218.0 mg/dL Invalid Interpretation Code 0-200 [facility] Cholesterol in HDL [Mass/Vol] 41.0 mg/dL Invalid Interpretation Code 36-100 [facility] Cholesterol in LDL [Mass/Vol] 139.0 mg/dL Invalid Interpretation Code 0-130 [facility] Cholesterol in VLDL [Mass/Vol] 38.0 mg/dL Invalid Interpretation Code 0-39 [facility] Cholesterol.total/C holesterol in HDL [Mass ratio] 5 {ratio} Invalid Interpretation Code [facility] CO2 [Moles/Vol] 26.0 mmol/L Invalid Interpretation Code 23-30 [facility] Creatinine (U) [Mass/Vol] 41.10 mg/dL Invalid Interpretation Code Not Estab. mg/dL [facility] Creatinine [Mass/Vol] 1.0 mg/dL Invalid Interpretation Code 0.5-1.5 [facility] GFR/1.73 sq M.predicted among non-blacks MDRD (S/P/Bld) [Vol rate/Area] 77 mL/min/{1.73_m2} Invalid Interpretation Code [facility] Glucose [Mass/Vol] 134.0 mg/dL Invalid Interpretation Code 80-117 [facility] Ketones Ql (U) Negative Invalid Interpretation Code Negative [facility] Parathyrin.intact [Mass/Vol] 24 pg/mL Invalid Interpretation Code 12-65 [facility] pH (U) 6.5 [pH] Invalid Interpretation Code 5.0-9.0 [facility] Phosphate [Mass/Vol] 3.60 mg/dL Invalid Interpretation Code 2.5-4.5 [facility] Potassium [Moles/Vol] 4.60 mmol/L Invalid Interpretation Code 3.5-5.3 [facility] Protein [Mass/Vol] 7.90 g/dL Invalid Interpretation Code 6.3-7.9 [facility] Sodium [Moles/Vol] 133.0 mmol/L Invalid Interpretation Code 135-148 [facility] Specific gravity (U) [Rel density] 1.005 Invalid Interpretation Code 1.003-1.030 [facility] Triglyceride [Mass/Vol] 190.0 mg/dL Invalid Interpretation Code 30-150 [facility] Urea nitrogen [Mass/Vol] 23.0 mg/dL Invalid Interpretation Code 7-25 [facility] Urea nitrogen/Creatinine [Mass ratio] 23 mg/mg Invalid Interpretation Code 6-20 [facility] Urobilinogen (U) [Mass/Vol] normal Invalid Interpretation Code normal [facility] - Hematology and Cell countson 07-27-2022 HbA1c (Bld) [Mass fraction] 6.70 % Invalid Interpretation Code 4.3-6.3 [facility] Hemoglobin Ql (U) Negative Invalid Interpretation Code Negative [facility] - Specimen inform ationon 07-27-2022 Clarity (U) clear Invalid Interpretation Code Clear [facility] Color (U) yellow Invalid Interpretation Code yellow [facility] - Urinalysison Glucose Test strip (U) [Mass/Vol] 4+ Invalid Interpretation Code Negative [facility] Leukocyte esterase Test strip Ql (U) Negative Invalid Interpretation Code Negative [facility] Nitrite Ql (U) Negative Invalid Interpretation Code Negative [facility] Protein Ql (U) Negative Invalid Interpretation Code Negative [facility] No Panel Informationon 07-27 Body mass index (BMI) [Percentile] Per age and sex 0.1 {percentile} Invalid Interpretation Code [facility] [id number] Per age and sex 0.1 {percentile} Invalid Interpretation Code [facility] 146.0 mg/dL Invalid Interpretation Code [facility] Patient did NOT brin g meter Invalid Interpretation Code 70-117 [facility] - Chemistry and C hemistry - challengeon 02-17-2022 Albumin (U) [Mass/Vol] 17.1 Invalid Interpretation Code <17.0 [facility] Albumin [Mass/Vol] 4.80 g/dL Invalid Interpretation Code 3.7-5.0 [facility] Albumin/Creatinine DL <= 20 mg/L (U) [Mass ratio] 26.8 mg/g Invalid Interpretation Code 0.0-30.0 [facility] Albumin/Globulin [Mass ratio] 1.7 {ratio} Invalid Interpretation Code 1.0-2.4 [facility] ALP [Catalytic activity/Vol] 65.0 U/L Invalid Interpretation Code 31-155 [facility] ALT [Catalytic activity/Vol] 51.0 U/L Invalid Interpretation Code 0-50 [facility] Anion gap [Moles/Vol] 13 mmol/L Invalid Interpretation Code 10-20 [facility] AST [Catalytic activity/Vol] 30.0 U/L Invalid Interpretation Code 0-40 [facility] Bilirubin [Mass/Vol] 0.50 mg/dL Invalid Interpretation Code 0.0-1.0 [facility] Calcium [Mass/Vol] 10.80 mg/dL Invalid Interpretation Code 8.5-10.8 [facility] Chloride [Moles/Vol] 99.0 mmol/L Invalid Interpretation Code 100-112 [facility] Cholesterol [Mass/Vol] 214.0 mg/dL Invalid Interpretation Code 0-200 [facility] Cholesterol in HDL [Mass/Vol] 57.0 mg/dL Invalid Interpretation Code 36-100 [facility] Cholesterol in LDL [Mass/Vol] 133.0 mg/dL Invalid Interpretation Code 0-130 [facility] Cholesterol in VLDL [Mass/Vol] 24.0 mg/dL Invalid Interpretation Code 0-39 [facility] Cholesterol.total/C holesterol in HDL [Mass ratio] 4 {ratio} Invalid Interpretation Code [facility] CO2 [Moles/Vol] 30.0 mmol/L Invalid Interpretation Code 23-30 [facility] Creatinine (U) [Mass/Vol] 63.80 mg/dL Invalid Interpretation Code Not Estab. mg/dL [facility] Creatinine [Mass/Vol] 1.10 mg/dL Invalid Interpretation Code 0.5-1.5 [facility] GFR/1.73 sq M.predicted among non-blacks MDRD (S/P/Bld) [Vol rate/Area] 69 mL/min/{1.73_m2} Invalid Interpretation Code [facility] Glucose [Mass/Vol] 128.0 mg/dL Invalid Interpretation Code 80-117 [facility] Potassium [Moles/Vol] 4.60 mmol/L Invalid Interpretation Code 3.5-5.3 [facility] Prostate specific Ag [Mass/Vol] 0.85 ng/mL Invalid Interpretation Code 0.00-4.00 [facility] Protein [Mass/Vol] 7.60 g/dL Invalid Interpretation Code 6.3-7.9 [facility] Sodium [Moles/Vol] 137.0 mmol/L Invalid Interpretation Code 135-148 [facility] Triglyceride [Mass/Vol] 120.0 mg/dL Invalid Interpretation Code 30-150 [facility] Urea nitrogen [Mass/Vol] 16.0 mg/dL Invalid Interpretation Code 7-25 [facility] Urea nitrogen/Creatinine [Mass ratio] 15 mg/mg Invalid Interpretation Code 6-20 [facility] Laboratory - Hematology and Cell countson 02-17-2022 HbA1c (Bld) [Mass fraction] 6.50 % Invalid Interpretation Code 4.3-6.3 [facility] No Panel Informationon 02-17 140.0 mg/dL Invalid Interpretation Code [facility] - Chemistry and C hemistry - challengeon 01-15-2022 Albumin (U) [Mass/Vol] < 12.0 Invalid Interpretation Code < 17.0 ug/mL [facility] Albumin [Mass/Vol] 4.70 g/dL Invalid Interpretation Code 3.7-5.0 [facility] Albumin/Globulin [Mass ratio] 1.6 {ratio} Invalid Interpretation Code 1.0-2.4 [facility] ALP [Catalytic activity/Vol] 66.0 U/L Invalid Interpretation Code 31-155 [facility] ALT [Catalytic activity/Vol] 38.0 U/L Invalid Interpretation Code 0-50 [facility] Anion gap [Moles/Vol] 15 mmol/L Invalid Interpretation Code 10-20 [facility] AST [Catalytic activity/Vol] 23.0 U/L Invalid Interpretation Code 0-40 [facility] Bilirubin [Mass/Vol] 0.40 mg/dL Invalid Interpretation Code 0.0-1.0 [facility] Bilirubin Ql (U) Negative Invalid Interpretation Code Negative [facility] Calcium [Mass/Vol] 10.40 mg/dL Invalid Interpretation Code 8.5-10.8 [facility] Chloride [Moles/Vol] 101.0 mmol/L Invalid Interpretation Code 100-112 [facility] CO2 [Moles/Vol] 28.0 mmol/L Invalid Interpretation Code 23-30 [facility] Creatinine (U) [Mass/Vol] 60.60 mg/dL Invalid Interpretation Code Not Estab. mg/dL [facility] Creatinine [Mass/Vol] 1.10 mg/dL Invalid Interpretation Code 0.5-1.5 [facility] Gamma glutamyl transferase [Catalytic activity/Vol] 62 U/L Invalid Interpretation Code 7-51 [facility] GFR/1.73 sq M.predicted among non-blacks MDRD (S/P/Bld) [Vol rate/Area] 69 mL/min/{1.73_m2} Invalid Interpretation Code [facility] Glucose [Mass/Vol] 116.0 mg/dL Invalid Interpretation Code 80-117 [facility] Ketones Ql (U) 1+ Invalid Interpretation Code Negative [facility] pH (U) 6 [pH] Invalid Interpretation Code 5.0-9.0 [facility] Potassium [Moles/Vol] 4.80 mmol/L Invalid Interpretation Code 3.5-5.3 [facility] Protein [Mass/Vol] 7.70 g/dL Invalid Interpretation Code 6.3-7.9 [facility] Sodium [Moles/Vol] 139.0 mmol/L Invalid Interpretation Code 135-148 [facility] Specific gravity (U) [Rel density] 1.010 Invalid Interpretation Code 1.003-1.030 [facility] Urea nitrogen [Mass/Vol] 17.0 mg/dL Invalid Interpretation Code 7-25 [facility] Urea nitrogen/Creatinine [Mass ratio] 15 mg/mg Invalid Interpretation Code 6-20 [facility] Urobilinogen (U) [Mass/Vol] normal Invalid Interpretation Code normal [facility] - Hematology and Cell countson 01-15-2022 Erythrocyte distribution width (RBC) [Ratio] 12.50 % Invalid Interpretation Code 11.5-15.5 [facility] HbA1c (Bld) [Mass fraction] 6.60 % Invalid Interpretation Code 4.3-6.3 [facility] Hematocrit (Bld) [Volume fraction] 49.80 % Invalid Interpretation Code 37.8-51.0 [facility] Hemoglobin (Bld) [Mass/Vol] 16.40 g/dL Invalid Interpretation Code 12.6-17.0 [facility] Hemoglobin Ql (U) Negative Invalid Interpretation Code Negative [facility] MCH (RBC) [Entitic mass] 31.90 pg Invalid Interpretation Code 25.7-33.8 [facility] MCHC (RBC) [Mass/Vol] 32.90 g/dL Invalid Interpretation Code 32.0-36.0 [facility] MCV (RBC) [Entitic vol] 96.90 fL Invalid Interpretation Code 81.0-100.2 [facility] Platelet mean volume (Bld) [Entitic vol] 9.30 fL Invalid Interpretation Code 8.3-11.5 [facility] Platelets (Bld) [#/Vol] 216.0 10*3/uL Invalid Interpretation Code 150-400 [facility] RBC (Bld) [#/Vol] 5.140 10*6/uL Invalid Interpretation Code 4.34-5.61 [facility] WBC (Bld) [#/Vol] 7.30 10*3/uL Invalid Interpretation Code 3.9-10.3 [facility] - Specimen inform ationon 01-15-2022 Clarity (U) clear Invalid Interpretation Code Clear [facility] Color (U) yellow Invalid Interpretation Code yellow [facility] - Urinalysison Glucose Test strip (U) [Mass/Vol] 4+ Invalid Interpretation Code Negative [facility] Leukocyte esterase Test strip Ql (U) Negative Invalid Interpretation Code Negative [facility] Nitrite Ql (U) Negative Invalid Interpretation Code Negative [facility] Protein Ql (U) Negative Invalid Interpretation Code Negative [facility] No Panel Informationon 01-15 143.0 mg/dL Invalid Interpretation Code [facility] Glucose Meter Check NOT Performed Invalid Interpretation Code 70-117 [facility] - Chemistry and C hemistry - challengeon 08-18-2021 Albumin [Mass/Vol] 4.70 g/dL Invalid Interpretation Code 3.7-5.0 [facility] Albumin/Globulin [Mass ratio] 1.7 {ratio} Invalid Interpretation Code 1.0-2.4 [facility] ALP [Catalytic activity/Vol] 62.0 U/L Invalid Interpretation Code 31-155 [facility] ALT [Catalytic activity/Vol] 57.0 U/L Invalid Interpretation Code 0-50 [facility] Anion gap [Moles/Vol] 16 mmol/L Invalid Interpretation Code 10-20 [facility] AST [Catalytic activity/Vol] 33.0 U/L Invalid Interpretation Code 0-40 [facility] Bilirubin [Mass/Vol] 0.40 mg/dL Invalid Interpretation Code 0.0-1.0 [facility] Calcium [Mass/Vol] 10.20 mg/dL Invalid Interpretation Code 8.5-10.8 [facility] Chloride [Moles/Vol] 99.0 mmol/L Invalid Interpretation Code 100-112 [facility] Cholesterol [Mass/Vol] 217.0 mg/dL Invalid Interpretation Code 0-200 [facility] Cholesterol in HDL [Mass/Vol] 49.0 mg/dL Invalid Interpretation Code 36-100 [facility] Cholesterol in LDL [Mass/Vol] 131.0 mg/dL Invalid Interpretation Code 0-130 [facility] Cholesterol in VLDL [Mass/Vol] 37.0 mg/dL Invalid Interpretation Code 0-39 [facility] Cholesterol.total/C holesterol in HDL [Mass ratio] 4 {ratio} Invalid Interpretation Code [facility] CO2 [Moles/Vol] 28.0 mmol/L Invalid Interpretation Code 23-30 [facility] Creatinine [Mass/Vol] 1.10 mg/dL Invalid Interpretation Code 0.5-1.5 [facility] Gamma glutamyl transferase [Catalytic activity/Vol] 98 U/L Invalid Interpretation Code 7-51 [facility] GFR/1.73 sq M.predicted among non-blacks MDRD (S/P/Bld) [Vol rate/Area] 69 mL/min/{1.73_m2} Invalid Interpretation Code [facility] Glucose [Mass/Vol] 127.0 mg/dL Invalid Interpretation Code 80-117 [facility] Potassium [Moles/Vol] 4.40 mmol/L Invalid Interpretation Code 3.5-5.3 [facility] Protein [Mass/Vol] 7.50 g/dL Invalid Interpretation Code 6.3-7.9 [facility] Sodium [Moles/Vol] 139.0 mmol/L Invalid Interpretation Code 135-148 [facility] Triglyceride [Mass/Vol] 186.0 mg/dL Invalid Interpretation Code 30-150 [facility] Urea nitrogen [Mass/Vol] 19.0 mg/dL Invalid Interpretation Code 7-25 [facility] Urea nitrogen/Creatinine [Mass ratio] 17 mg/mg Invalid Interpretation Code 6-20 [facility] - Hematology and Cell countson 08-18-2021 Erythrocyte distribution width (RBC) [Ratio] 12.60 % Invalid Interpretation Code 11.5-15.5 [facility] HbA1c (Bld) [Mass fraction] 6.20 % Invalid Interpretation Code 4.3-6.3 [facility] Hematocrit (Bld) [Volume fraction] 48.40 % Invalid Interpretation Code 37.8-51.0 [facility] Hemoglobin (Bld) [Mass/Vol] 16.10 g/dL Invalid Interpretation Code 12.6-17.0 [facility] MCH (RBC) [Entitic mass] 32.40 pg Invalid Interpretation Code 25.7-33.8 [facility] MCHC (RBC) [Mass/Vol] 33.30 g/dL Invalid Interpretation Code 32.0-36.0 [facility] MCV (RBC) [Entitic vol] 97.40 fL Invalid Interpretation Code 81.0-100.2 [facility] Platelet mean volume (Bld) [Entitic vol] 10.10 fL Invalid Interpretation Code 8.3-11.5 [facility] Platelets (Bld) [#/Vol] 214.0 10*3/uL Invalid Interpretation Code 150-400 [facility] RBC (Bld) [#/Vol] 4.970 10*6/uL Invalid Interpretation Code 4.34-5.61 [facility] WBC (Bld) [#/Vol] 5.90 10*3/uL Invalid Interpretation Code 3.9-10.3 [facility] No Panel Informationon 08-18 131.0 mg/dL Invalid Interpretation Code [facility] No Specimen, Unable to Void Invalid Interpretation Code [facility] No Panel Informationon 04-09 Diabetic Retinal Eye Exam Invalid Interpretation Code [facility] - Chemistry and C hemistry - challengeon 03-19-2021 Albumin [Mass/Vol] 4.60 g/dL Invalid Interpretation Code 3.7-4.5 [facility] Albumin/Globulin [Mass ratio] 1.4 {ratio} Invalid Interpretation Code 1.0-2.4 [facility] ALP [Catalytic activity/Vol] 75.0 U/L Invalid Interpretation Code 31-155 [facility] ALT [Catalytic activity/Vol] 41.0 U/L Invalid Interpretation Code 0-50 [facility] Anion gap [Moles/Vol] 14 mmol/L Invalid Interpretation Code 10-20 [facility] AST [Catalytic activity/Vol] 26.0 U/L Invalid Interpretation Code 0-40 [facility] Bilirubin [Mass/Vol] 0.40 mg/dL Invalid Interpretation Code 0.0-1.0 [facility] Bilirubin Ql (U) Negative Invalid Interpretation Code Negative [facility] Calcium [Mass/Vol] 10.10 mg/dL Invalid Interpretation Code 8.5-10.8 [facility] Chloride [Moles/Vol] 99.0 mmol/L Invalid Interpretation Code 100-112 [facility] CO2 [Moles/Vol] 28.0 mmol/L Invalid Interpretation Code 23-30 [facility] Creatinine [Mass/Vol] 0.90 mg/dL Invalid Interpretation Code 0.5-1.5 [facility] GFR/1.73 sq M.predicted among non-blacks MDRD (S/P/Bld) [Vol rate/Area] 87 mL/min/{1.73_m2} Invalid Interpretation Code [facility] Glucose [Mass/Vol] 135.0 mg/dL Invalid Interpretation Code 80-117 [facility] Ketones Ql (U) Negative Invalid Interpretation Code Negative [facility] Parathyrin.intact [Mass/Vol] 22 pg/mL Invalid Interpretation Code 12-65 [facility] pH (U) 6 [pH] Invalid Interpretation Code 5.0-9.0 [facility] Phosphate [Mass/Vol] 3.50 mg/dL Invalid Interpretation Code 2.5-4.5 [facility] Potassium [Moles/Vol] 4.50 mmol/L Invalid Interpretation Code 3.5-5.3 [facility] Protein [Mass/Vol] 7.80 g/dL Invalid Interpretation Code 6.3-7.9 [facility] Sodium [Moles/Vol] 136.0 mmol/L Invalid Interpretation Code 135-148 [facility] Specific gravity (U) [Rel density] 1.015 Invalid Interpretation Code 1.003-1.030 [facility] Urea nitrogen [Mass/Vol] 15.0 mg/dL Invalid Interpretation Code 7-25 [facility] Urea nitrogen/Creatinine [Mass ratio] 17 mg/mg Invalid Interpretation Code 6-20 [facility] Urobilinogen (U) [Mass/Vol] normal Invalid Interpretation Code normal [facility] - Hematology and Cell countson 03-19-2021 Erythrocyte distribution width (RBC) [Ratio] 12.80 % Invalid Interpretation Code 11.5-15.5 [facility] HbA1c (Bld) [Mass fraction] 6.40 % Invalid Interpretation Code 4.3-6.3 [facility] Hematocrit (Bld) [Volume fraction] 49.0 % Invalid Interpretation Code 37.8-51.0 [facility] Hemoglobin (Bld) [Mass/Vol] 16.60 g/dL Invalid Interpretation Code 12.6-17.0 [facility] Hemoglobin Ql (U) Negative Invalid Interpretation Code Negative [facility] MCH (RBC) [Entitic mass] 32.10 pg Invalid Interpretation Code 25.7-33.8 [facility] MCHC (RBC) [Mass/Vol] 33.90 g/dL Invalid Interpretation Code 32.0-36.0 [facility] MCV (RBC) [Entitic vol] 94.80 fL Invalid Interpretation Code 81.0-100.2 [facility] Platelet mean volume (Bld) [Entitic vol] 9.60 fL Invalid Interpretation Code 8.3-11.5 [facility] Platelets (Bld) [#/Vol] 257.0 10*3/uL Invalid Interpretation Code 150-400 [facility] RBC (Bld) [#/Vol] 5.170 10*6/uL Invalid Interpretation Code 4.34-5.61 [facility] WBC (Bld) [#/Vol] 6.90 10*3/uL Invalid Interpretation Code 3.9-10.3 [facility] - Specimen inform ationon 03-19-2021 Clarity (U) clear Invalid Interpretation Code Clear [facility] Color (U) yellow Invalid Interpretation Code yellow [facility] - Urinalysison Glucose Test strip (U) [Mass/Vol] 4+ Invalid Interpretation Code Negative [facility] Leukocyte esterase Test strip Ql (U) Negative Invalid Interpretation Code Negative [facility] Nitrite Ql (U) Negative Invalid Interpretation Code Negative [facility] Protein Ql (U) Negative Invalid Interpretation Code Negative [facility] No Panel Informationon 03-19 137.0 mg/dL Invalid Interpretation Code [facility] patient's meter brok e and doesn't have new one yet Invalid Interpretation Code 70-117 [facility] - Chemistry and C hemistry - challengeon 12-23-2020 Albumin (U) [Mass/Vol] < 12.0 Invalid Interpretation Code < 17.0 ug/mL [facility] Albumin [Mass/Vol] 4.40 g/dL Invalid Interpretation Code 3.7-4.5 [facility] Albumin/Globulin [Mass ratio] 1.5 {ratio} Invalid Interpretation Code 1.0-2.4 [facility] ALP [Catalytic activity/Vol] 69.0 U/L Invalid Interpretation Code 31-155 [facility] ALT [Catalytic activity/Vol] 30.0 U/L Invalid Interpretation Code 0-50 [facility] Anion gap [Moles/Vol] 13 mmol/L Invalid Interpretation Code 10-20 [facility] AST [Catalytic activity/Vol] 20.0 U/L Invalid Interpretation Code 0-40 [facility] Bilirubin [Mass/Vol] 0.40 mg/dL Invalid Interpretation Code 0.0-1.0 [facility] Bilirubin Ql (U) Negative Invalid Interpretation Code Negative [facility] Calcium [Mass/Vol] 9.80 mg/dL Invalid Interpretation Code 8.5-10.8 [facility] Chloride [Moles/Vol] 98.0 mmol/L Invalid Interpretation Code 100-112 [facility] Cholesterol [Mass/Vol] 207.0 mg/dL Invalid Interpretation Code 0-200 [facility] Cholesterol in HDL [Mass/Vol] 40.0 mg/dL Invalid Interpretation Code 36-100 [facility] Cholesterol in LDL [Mass/Vol] 100.0 mg/dL Invalid Interpretation Code 0-130 [facility] Cholesterol in VLDL [Mass/Vol] 67.0 mg/dL Invalid Interpretation Code 0-39 [facility] Cholesterol.total/C holesterol in HDL [Mass ratio] 5 {ratio} Invalid Interpretation Code [facility] CO2 [Moles/Vol] 29.0 mmol/L Invalid Interpretation Code 23-30 [facility] Creatinine (U) [Mass/Vol] 31.90 mg/dL Invalid Interpretation Code Not Estab. mg/dL [facility] Creatinine [Mass/Vol] 1.0 mg/dL Invalid Interpretation Code 0.5-1.5 [facility] GFR/1.73 sq M.predicted among non-blacks MDRD (S/P/Bld) [Vol rate/Area] 77 mL/min/{1.73_m2} Invalid Interpretation Code [facility] Glucose [Mass/Vol] 113.0 mg/dL Invalid Interpretation Code 80-117 [facility] Ketones Ql (U) Negative Invalid Interpretation Code Negative [facility] pH (U) 6 [pH] Invalid Interpretation Code 5.0-9.0 [facility] Potassium [Moles/Vol] 4.40 mmol/L Invalid Interpretation Code 3.5-5.3 [facility] Prostate specific Ag [Mass/Vol] 0.76 ng/mL Invalid Interpretation Code 0.00-4.00 [facility] Protein [Mass/Vol] 7.30 g/dL Invalid Interpretation Code 6.3-7.9 [facility] Sodium [Moles/Vol] 136.0 mmol/L Invalid Interpretation Code 135-148 [facility] Specific gravity (U) [Rel density] 1.005 Invalid Interpretation Code 1.003-1.030 [facility] Triglyceride [Mass/Vol] 334.0 mg/dL Invalid Interpretation Code 30-150 [facility] Urea nitrogen [Mass/Vol] 15.0 mg/dL Invalid Interpretation Code 7-25 [facility] Urea nitrogen/Creatinine [Mass ratio] 15 mg/mg Invalid Interpretation Code 6-20 [facility] Urobilinogen (U) [Mass/Vol] normal Invalid Interpretation Code normal [facility] - Hematology and Cell countson 12-23-2020 Erythrocyte distribution width (RBC) [Ratio] 12.90 % Invalid Interpretation Code 11.5-15.5 [facility] HbA1c (Bld) [Mass fraction] 6.30 % Invalid Interpretation Code 4.3-6.3 [facility] Hematocrit (Bld) [Volume fraction] 48.0 % Invalid Interpretation Code 37.8-51.0 [facility] Hemoglobin (Bld) [Mass/Vol] 16.40 g/dL Invalid Interpretation Code 12.6-17.0 [facility] Hemoglobin Ql (U) Negative Invalid Interpretation Code Negative [facility] MCH (RBC) [Entitic mass] 32.20 pg Invalid Interpretation Code 25.7-33.8 [facility] MCHC (RBC) [Mass/Vol] 34.20 g/dL Invalid Interpretation Code 32.0-36.0 [facility] MCV (RBC) [Entitic vol] 94.10 fL Invalid Interpretation Code 81.0-100.2 [facility] Platelet mean volume (Bld) [Entitic vol] 9.30 fL Invalid Interpretation Code 8.3-11.5 [facility] Platelets (Bld) [#/Vol] 265.0 10*3/uL Invalid Interpretation Code 150-400 [facility] RBC (Bld) [#/Vol] 5.10 10*6/uL Invalid Interpretation Code 4.34-5.61 [facility] WBC (Bld) [#/Vol] 7.30 10*3/uL Invalid Interpretation Code 3.9-10.3 [facility] - Specimen inform ationon 12-23-2020 Clarity (U) clear Invalid Interpretation Code Clear [facility] Collection time (Andrei) [Date/time] 10:56 am Invalid Interpretation Code [facility] Color (U) yellow Invalid Interpretation Code yellow [facility] - Urinalysison Glucose Test strip (U) [Mass/Vol] 4+ Invalid Interpretation Code Negative [facility] Leukocyte esterase Test strip Ql (U) Negative Invalid Interpretation Code Negative [facility] Nitrite Ql (U) Negative Invalid Interpretation Code Negative [facility] Protein Ql (U) Negative Invalid Interpretation Code Negative [facility] No Panel Informationon 12-23 134.0 mg/dL Invalid Interpretation Code [facility] - Chemistry and C hemistry - challengeon 09-09-2020 Albumin/Globulin [Mass ratio] 1.2 {ratio} Invalid Interpretation Code 1.0-2.4 [facility] Bilirubin Ql (U) Negative Invalid Interpretation Code Negative [facility] Ketones Ql (U) Negative Invalid Interpretation Code Negative [facility] Urobilinogen (U) [Mass/Vol] normal Invalid Interpretation Code normal [facility] - Urinalysison Leukocyte esterase Test strip Ql (U) Negative Invalid Interpretation Code Negative [facility] Nitrite Ql (U) Negative Invalid Interpretation Code Negative [facility] Protein Ql (U) Negative Invalid Interpretation Code Negative [facility] Metabolic Panelon 09-09-2020 Albumin [Mass/Vol] 4.40 g/dL Invalid Interpretation Code 3.7-4.5 [facility] ALP [Catalytic activity/Vol] 81.0 U/L Invalid Interpretation Code 31-155 [facility] ALT [Catalytic activity/Vol] 57.0 U/L Invalid Interpretation Code 0-50 [facility] Anion gap [Moles/Vol] 13 mmol/L Invalid Interpretation Code 10-20 [facility] AST [Catalytic activity/Vol] 36.0 U/L Invalid Interpretation Code 0-40 [facility] Bilirubin [Mass/Vol] 0.60 mg/dL Invalid Interpretation Code 0.0-1.0 [facility] Calcium [Mass/Vol] 11.0 mg/dL Invalid Interpretation Code 8.5-10.8 [facility] Chloride [Moles/Vol] 97.0 mmol/L Invalid Interpretation Code 100-112 [facility] CO2 [Moles/Vol] 27.0 mmol/L Invalid Interpretation Code 23-30 [facility] Creatinine [Mass/Vol] 1.60 mg/dL Invalid Interpretation Code 0.5-1.5 [facility] GFR/1.73 sq M predicted among non-blacks MDRD (S/P/Bld) [Vol rate/Area] 45 mL/min/{1.73_m2} Invalid Interpretation Code [facility] Glucose [Mass/Vol] 148.0 mg/dL Invalid Interpretation Code 80-117 [facility] Glucose [Mass/Vol] Patient did not brin g strips for meter 70-117 [facility] HbA1c (Bld) [Mass fraction] 6.90 % Invalid Interpretation Code 4.3-6.3 [facility] Potassium [Moles/Vol] 4.90 mmol/L Invalid Interpretation Code 3.5-5.3 [facility] Protein [Mass/Vol] 8.20 g/dL Invalid Interpretation Code 6.3-7.9 [facility] Sodium [Moles/Vol] 132.0 mmol/L Invalid Interpretation Code 135-148 [facility] Urea nitrogen [Mass/Vol] 23.0 mg/dL Invalid Interpretation Code 7-25 [facility] Urea nitrogen/Creatinine [Mass ratio] 14 mg/mg Invalid Interpretation Code 6-20 [facility] No Panel Informationon 09-09 Patient did not brin g strips for meter Invalid Interpretation Code 70-117 [facility] Otheron 09-09-2020 Albumin/Globulin [Mass ratio] 1.2 (calc) 1.0-2.4 [facility] Bilirubin Ql (U) Negative Negative [facility] Glucose Test strip (U) [Mass/Vol] 4+ Invalid Interpretation Code Negative [facility] Hemoglobin Ql (U) Trace Invalid Interpretation Code Negative [facility] Nitrite Ql (U) Negative Negative [facility] pH (U) 5 [pH] Invalid Interpretation Code 5.0-9.0 [facility] Protein Ql (U) Negative Negative [facility] Urobilinogen Test strip (U) [Mass/Vol] normal normal [facility] 151.0 mg/dL Invalid Interpretation Code [facility] Urinalysison 09-09-2020 Clarity (U) Clear Invalid Interpretation Code Clear [facility] Color (U) yellow Invalid Interpretation Code yellow [facility] Ketones Ql (U) Negative Negative [facility] Leukocyte esterase Test strip Ql (U) Negative Negative [facility] Specific gravity (U) [Rel density] 1.015 Invalid Interpretation Code 1.003-1.030 [facility] Coding Summaryon 06-20-2020 Coding Summary CODING DATE: [facility] STATUS: Home PAYOR: Medicare APC DESCRIPTION [...] Aguilera' Date Saved: 06/20/2020 12:49 pm [facility] Coding Summary CODING DATE: [facility] STATUS: Home PAYOR: Medicare APC DESCRIPTION [...] Aguilera' Date Saved: 06/20/2020 12:47 pm Normal [facility] .Auto Diff 106-17-2020 Auto [place] % 7 % Normal 07-22 [facility] Comment on above: Performed By: #### 7 474976, 7904338, 11042914, [id number], [id number] #### [facility] (DEFAULT) [address] [place] [address] 43436 Baso Abs# 0.0 x10 Normal 0.0-0.2 [facility] Comment on above: Performed By: #### 7 173322, 6736094, 86232039, [id number], [id number] #### [facility] (DEFAULT) [address] [place] [address] 14870 Basophils/100 WBC (Bld) 0.5 % Normal 0.2-2.0 [facility] Comment on above: Performed By: #### 7 758967, 3328434, 38366430, [id number], [id number] #### [facility] (DEFAULT) [address] [place] [address] 83289 Eos Abs# 0.2 x10 Normal 0.0-0.4 [facility] Comment on above: Performed By: #### 7 246519, 2379721, 47363503, [id number], [id number] #### [facility] (DEFAULT) [address] [place] [address] 15050 Eosinophils/100 WBC (Bld) 2.3 % Normal 0.9-4.0 [facility] Comment on above: Performed By: #### 7 378738, 7382448, 61789234, 1113763887, [id number] #### [facility] (DEFAULT) [address] [place] [address] Lymphocytes (Bld) [#/Vol] 2.3 x10 Normal 1.3-2.9 [facility] Comment on above: Performed By: #### 7 908625, 5785005, 87247441, [id number], [id number] #### [facility] (DEFAULT) [address] [place] [address] Lymphocytes/100 WBC (Bld) 25 % Normal 14-48 [facility] Comment on above: Performed By: #### 7 451637, 9173456, 81876635, [id number], [id number] #### [facility] (DEFAULT) [address] [place] [address] [place] Abs# 0.7 x10 Normal 0.0-0.8 [facility] Comment on above: Performed By: #### 7 755574, 2131332, 99976710, [id number], [id number] #### [facility] (DEFAULT) [address] [place] [address] Neut Abs# 6.0 x10 Normal 1.5-9.2 [facility] Comment on above: Performed By: #### 7 457241, 1152090, 30636393, [id number], [id number] #### [facility] (DEFAULT) [address] [place] [address] Neutrophils/100 WBC (Bld) 65 % Normal 44-88 [facility] Comment on above: Performed By: #### 7 675219, 5639563, 90071804, [id number], [id number] #### [facility] (DEFAULT) [address] [place] [address] .QC Respiratory Panel 2.1 (B ioFire)on 06-17-2020 Internal Control-Resp Panel 2.1(BioFire) Pass Normal [facility] Comment on above: Order Comment: Order ed by Discern. [[id number]] Performed By: #### 6 [id number] #### [facility] (DEFAULT) [address] [place] [address] CBC w/ Auto Diffon 0 Erythrocyte distribution width (RBC) [Ratio] 12.9 % Normal 11.5-15.0 [facility] Comment on above: Performed By: #### 7 822760, 6927099, 07735819, [id number], [id number] #### [facility] (DEFAULT) [address] [place] [address] Hematocrit (Bld) [Volume fraction] 45.1 % Normal 34.8-51.9 [facility] Comment on above: Performed By: #### 7 323981, 6164821, 50565843, 5110298622, [id number] #### [facility] (DEFAULT) [address] [place] [address] Hemoglobin (Bld) [Mass/Vol] 15.6 g/dL Normal 11.8-17.7 [facility] Comment on above: Performed By: #### 7 251022, 8814234, 06768196, [id number], [id number] #### [facility] (DEFAULT) [address] [place] [address] 13584 Man Diff? Auto Normal [facility] Comment on above: Performed By: #### 7 333717, 1642098, 04610901, 6850451041, [id number] #### [facility] (DEFAULT) [address] [place] [address] 32554 MCH (RBC) [Entitic mass] 32 pg Normal 24-34 [facility] Comment on above: Performed By: #### 7 052649, 4899556, 93768107, [id number], [id number] #### [facility] (DEFAULT) [address] [place] [address] 21220 MCHC (RBC) [Mass/Vol] 35 g/dL Normal 26-37 [facility] Comment on above: Performed By: #### 7 318124, 4636281, 95122925, 5410343798, [id number] #### [facility] (DEFAULT) [address] [place] [address] 07395 MCV (RBC) [Entitic vol] 93 fL Normal 81-100 [facility] Comment on above: Performed By: #### 7 221254, 8768223, 22591984, [id number], [id number] #### [facility] (DEFAULT) [address] [place] [address] 58721 Platelet mean volume (Bld) [Entitic vol] 9.9 fL Normal 6.3-10.2 [facility] Comment on above: Performed By: #### 7 397925, 6926210, 58671735, 1038774446, [id number] #### [facility] (DEFAULT) [address] [place] [address] 25549 Platelets (Bld) [#/Vol] 277 x10 Normal 138-427 [facility] Comment on above: Performed By: #### 7 733617, 0116649, 92951242, 2889169538, [id number] #### [facility] (DEFAULT) [address] [place] [address] 47466 RBC (Bld) [#/Vol] 4.83 x10 Normal 3.70-5.30 [facility] Comment on above: Performed By: #### 7 362479, 5262833, 82508189, 8358355948, [id number] #### [facility] (DEFAULT) [address] [place] [address] 00355 WBC (Bld) [#/Vol] 9.3 x10 Normal 3.5-10.5 [facility] Comment on above: Performed By: #### 7 979325, 2075564, 92136585, 6947036504, [id number] #### [facility] (DEFAULT) [address] [place] [address] 02261 [facility] Standardon 06-17-2020 eGFR Non AA >60 [facility] Comment on above: Performed By: #### 7 593454, 7170506, 82117153, 7058402325, [id number] #### [facility] (DEFAULT) [address] [place] [address] eGFR AA >60 [facility] Comment on above: Result Comment: Product Marketing Director shannan Kidney disease could be indicated at eGFRs of less than 60 ml/min/1.73m2. Kidney Failure is indicated at less than 15 ml/min/1.73m2 Performed By: #### 7 339242, 4236922, 57178967, 5379833289, [id number] #### [facility] (DEFAULT) [address] [place] [address] Albumin [Mass/Vol] 4.0 g/dL Normal 3.5-5.0 [facility] [place] Comment on above: Performed By: #### 7 166312, 3297675, 57436218, 5333231743, [id number] #### [facility] (DEFAULT) [address] [place] [address] Albumin/Globulin [Mass ratio] 1.1 {ratio} Low 1.4-2.6 [facility] Comment on above: Performed By: #### 7 162714, 2962835, 90768138, 0564429515, [id number] #### [facility] (DEFAULT) [address] [place] [address] Alk Phos 70 IU/L Normal 32-91 [facility] Comment on above: Performed By: #### 7 563000, 0727236, 53543491, 9637464033, [id number] #### [facility] (DEFAULT) [address] [place] [address] ALT/SGPT 42.0 IU/L Normal 17.0-63.0 [facility] Comment on above: Performed By: #### 7 680088, 1072668, 33389385, 7347851818, [id number] #### [facility] (DEFAULT) [address] [place] [address] Anion gap [Moles/Vol] 13.0 mmol/L Normal 5.0-19.0 [facility] Comment on above: Performed By: #### 7 744064, 3872653, 62487519, 9220232910, [id number] #### [facility] (DEFAULT) [address] [place] [address] AST/SGOT 27 IU/L Normal 15-41 [facility] Comment on above: Performed By: #### 7 028726, 1733964, 03324493, 9528996265, [id number] #### [facility] (DEFAULT) [address] [place] [address] 65303 Bili Total 0.7 mg/dL Normal 0.3-1.2 [facility] Comment on above: Performed By: #### 7 646061, 5855109, 28001452, 5027344360, [id number] #### [facility] (DEFAULT) [address] [place] [address] 59997 Calcium [Mass/Vol] 9.0 mg/dL Normal 8.9-10.3 [facility] [place] Comment on above: Performed By: #### 7 844476, 6865906, 74781733, 2286078531, [id number] #### [facility] (DEFAULT) [address] [place] [address] 76595 Chloride [Moles/Vol] 102 mmol/L Normal 101-111 [facility] Comment on above: Performed By: #### 7 507907, 6942011, 57019357, 8712630621, [id number] #### [facility] (DEFAULT) [address] [place] [address] 99150 CO2 [Moles/Vol] 25 mmol/L Normal 21-32 [facility] Comment on above: Performed By: #### 7 286315, 4923544, 98074873, 9799634990, 7798696829 #### [facility] (DEFAULT) [address] [place] [address] 16825 Creatinine [Mass/Vol] 0.97 mg/dL Normal 0.90-1.30 [facility] Comment on above: Performed By: #### 7 569902, 3175436, 32038014, 4258151485, 6037894098 #### [facility] (DEFAULT) [address] [place] [address] 94124 Globulin (S) [Mass/Vol] 3.5 g/dL Normal 1.5-4.3 [facility] Comment on above: Performed By: #### 7 443761, 2475978, 76955677, 7095230702, [id number] #### [facility] (DEFAULT) [address] [place] [address] 48019 Glucose [Mass/Vol] 123.0 mg/dL High 74.0-118.0 [facility] Comment on above: Performed By: #### 7 707148, 6300199, 35614973, 3149652428, [id number] #### [facility] (DEFAULT) [address] [place] [address] 16055 Osmolality [Osmolality] 276 mOsm/L [facility] Comment on above: Performed By: #### 7 585838, 8287218, 18258553, 3148281519, [id number] #### [facility] (DEFAULT) [address] [place] [address] 29729 Potassium [Moles/Vol] 3.6 mmol/L Normal 3.6-5.1 [facility] Comment on above: Performed By: #### 7 700905, 2027724, 70436944, 1894433713, [id number] #### [facility] (DEFAULT) [address] [place] [address] 67460 Protein [Mass/Vol] 7.5 g/dL Normal 6.5-8.1 [facility] [place] Comment on above: Performed By: #### 7 177851, 6180303, 40851138, 2959576270, 8189632922 #### [facility] (DEFAULT) [address] [place] [address] 50448 Sodium [Moles/Vol] 136.0 mmol/L Normal 136.0-144.0 [facility] Comment on above: Performed By: #### 7 872793, 5049171, 31963513, 6813639973, [id number] #### [facility] (DEFAULT) [address] [place] [address] 38091 Urea nitrogen [Mass/Vol] 19 mg/dL Normal 8-26 [facility] Comment on above: Performed By: #### 7 398455, 5720471, 25183636, 1734892808, 5153476183 #### [facility] (DEFAULT) [address] [place] [address] 62420 Urea nitrogen/Creatinine [Mass ratio] 20.0 mg/mg High 4.6-16.2 [facility] Comment on above: Performed By: #### 7 433417, 6778719, 65764909, 9069059879, 4737083832 #### [facility] (DEFAULT) [address] [place] [address] 77666 D-Dimeron 06-17-2020 D-Dimer 0.23 mg/L FEU Normal 0.19-0.50 [facility] Comment on above: Result Comment: The [...] Liver cirrhosis ? Performed By: #### 7 765168, 9190407, 44424466, [id number], [id number] #### [facility] (DEFAULT) [address] [place] [address] 98550 ED Clinical Summaryon 2019 ED Clinical Summary [facility] - Emergency Department [address] [place] [address] 20293 ED Clinical Summary PERSON INFORMATION Name: GEREMIAS MELCHOR Age: 54 Years Sex: MALE : 1965 MRN: Acct#: Visit Reason: Shortness of breath; SOB Arrival: 06/17/2020 15:26:17 Discharge: 06/17/2020 17:58:00 LOS: 000 02:32 Check In: 06/17/2020 15:26:17 Checkout:06/17/2020 17:58:00 Address: [address] [place] [address] PCP: Flavio WHEELER, Ericka Shah PROVIDER INFORMATION Provider Role Assigned Unassigned Luis A JIMENEZ, Leonela Sorenson ED Nurse 06/17/2020 15:32:57 Tc GE, Otilia GAMBINO PA 06/17/2020 15:58:56 VITALS INFORMATION Vital Sign [...] Adult Follow-Up: With: Address: When: [place] [address] Business (1) Within 3 to 5 days DIAGNOSIS: Viral URI with cough Patient Understands: Yes - Patient/family/caregiver verbalizes understanding of instructions given Comment: [facility] ED Note - Physicianon 2019 ED [...] % Auto Lymph % 25 % Auto [place] % 7 % Auto Eos % 2.3 % Auto Baso % 0.5 % Neut Abs# 6.0 x103/mcL Lymph Abs# 2.3 x103/mcL [place] Abs# 0.7 x103/mcL Eos Abs# 0.2 x103/mcL [...] and Plan Diagnosis Viral URI with cough ([id number] J06.9, Discharge, Medical) Plan Condition: Stable. Disposition: [...] on: 06/17/2020 18:26 EST] Otilia Francois [facility] ED Note-Nursingon 06-17-2020 ED Note-Nursing Patient arrives to [facility] ED via private vehicle. Ambulated with a [...] more short of breath than normal. [facility] ED Patient Education Noteon 06-17-2020 ED [...] to help relieve symptoms, such as: ? Qsko-rgz-yqofkmy cold medicines. ? Cough suppressants. Coughing is [...] other clear broths. General instructions ? Take mlmc-sml-mttvcuo and prescription medicines only as told by [...] and water are not available, use hand access liaison. ? Avoid touching your mouth, face, eyes, [...] 12/21/2001 Document Revised: 07/05/2019 Document Reviewed: 02/10/2018 [employer] Patient Education ? 2020 [employer] ENT Cough, Adult Coughing is a [...] these instructions at home: Medicines ? Take eytw-jwt-yycxmsf and prescription medicines only as told by [...] a condition that needs treatment. ? Take miqb-aau-uteklic and prescription medicines only as told by [...] Reviewed: 07/16/2019 Elsevier Patient Education ? 2019 [employer] Normal [facility] ED Patient Summaryon 020 ED Patient Summary [facility] - Emergency Department [address] [place] [address] PATIENT DISCHARGE INSTRUCTIONS Patient Information Name: GEREMIAS MELCHOR Age: 54 Years Date of : 1965 [facility]: [id number] Reason For Visit: Shortness of breath; SOB Arrival Time: 06/17/2020 15:26:17 Primary Care Physician: Ericka Muniz MD Attending Physician: Landon Vegas MD Comment: Visit Diagnosis: Diagnoses This Visit Shortness of breath ([id number]) Viral URI with cough (J06.9) Prescription Information: If you have been given a prescription for narcotics, seek immediate medical attention if you have any difficulty breathing or any sudden status changes such as confusion and sleepiness. If you or anyone you know is experiencing suicidal thoughts, mental health, alcohol and/or drug addiction problems; contact the [facility] 31/01 Crisis Hotline -Text 4HOPE to 879023. If you received any narcotics, sedation, or [...] legal documents With: Address: When: Ericka Muniz [address] [place], [place] [id number] Business (1) Within 3 to 5 days Medication Information: The exam and treatment you received today in the [facility] Emergency Department were for an urgent problem and are not intended as complete care. It is important for you to follow up with a doctor, nurse practitioner, or physician?s construction management assistant for ongoing care. If your symptoms [...] so we can reach you if necessary. [facility] Emergency Department has provided you with a complete list of medications post discharge. Please inform your fryline attendant/provider of your visit and for further instruction [...] to help relieve symptoms, such as: ? Qjrg-iff-xluzftq cold medicines. ? Cough suppressants. Coughing is [...] other clear broths. General instructions ? Take qokr-epc-yivjyth and prescription medicines only as told by [...] and water are not available, use hand access liaison. ? Avoid touching your mouth, face, eyes, [...] 12/21/2001 Document Revised: 07/05/2019 Document Reviewed: 02/10/2018 [employer] Patient Education ? 2020 [employer] Cough, Adult Coughing is a reflex [...] these instructions at home: Medicines ? Take gbdp-jnf-wvveufl and prescription medicines only as told by [...] a condition that needs treatment. ? Take utoi-jbs-nqdejdd and prescription medicines only as told by [...] 12/24/2011 Document Revised: 07/16/2019 Document Reviewed: 07/16/2019 [employer] Patient Education ? 2019 [employer] Viruses or Bacteria What?s got you [...] Disease Control and Prevention March 2014 Normal [facility] Extra Redon 06-17-2020 Tube Collected Yes [facility] Comment on above: Performed By: #### 7 653925, 6671296, 83922320, [id number], [id number] #### [facility] (DEFAULT) [address] [place], [place] [address]I HSon 06-17-2020 Troponin I High Sensitivity 4 pg/mL Normal <=20 [facility] Comment on above: Result Comment: Male Baseline Delta 1Hr (Note pg/mL=ng/L) <20pg/mL 50-60% >20pg/mL 20% Female Baseline Delta 1Hr <15pg/mL 50-60% >15pg/mL 20% Other Baseline Delta 1Hr <18ng/mL 50-60% >18ng/mL 20% ([employer] College [employer] Guidelines February 2018) Performed By: #### 7 552147, 2265936, 83182048, [id number], [id number] #### [facility] (DEFAULT) [address] [place] [address] Metabolic Panelon 04-08-2020 ALT [Catalytic activity/Vol] 50.0 U/L Invalid Interpretation Code [facility] Bilirubin [Mass/Vol] 0.3 mg/dL 0.0-1.0 [facility] HbA1c (Bld) [Mass fraction] 6.6 % 4.3-6.3 [facility] HbA1c (Bld) [Mass fraction] 6.60 % Invalid Interpretation Code [facility] Albumin [Mass/Vol] 4.50 g/dL Invalid Interpretation Code [facility] AST [Catalytic activity/Vol] 31.0 U/L Invalid Interpretation Code [facility] No Panel Informationon 04-08 6.6 Invalid Interpretation Code 4.3-6.3 [facility] 0.3 Invalid Interpretation Code 0.0-1.0 [facility] Negative Invalid Interpretation Code Negative [facility] Otheron 04-08-2020 Negative Negative [facility] 4+ Invalid Interpretation Code Negative [facility] Clear Invalid Interpretation Code Clear [facility] normal Invalid Interpretation Code normal [facility] yellow Invalid Interpretation Code yellow [facility] 50 0-50 [facility] 6 Invalid Interpretation Code 5.0-9.0 [facility] 31 Invalid Interpretation Code 0-40 [facility] 78 Invalid Interpretation Code 31-155 [facility] 1.010 Invalid Interpretation Code 1.003-1.030 [facility] 1.5 Invalid Interpretation Code 1.0-2.4 [facility] 4.5 Invalid Interpretation Code 3.7-4.5 [facility] 7.5 Invalid Interpretation Code 6.3-7.9 [facility] 143 Invalid Interpretation Code [facility] 115.0 mg/dL Invalid Interpretation Code <140 [facility] ls Invalid Interpretation Code [facility] MRI KNEE RIGHT WO CONTRASTon 03-25-2020 MRI [...] Jos Martins MD 03/25/20 Final result Normal [facility] Inner free edge degeneration of the [...] suggestive of sprains. No definite tear identified. [facility], [place] EXAMINATION: MRI OF THE [...] are most compatible with a microtrabecular infraction. [facility] [place], [place] Ezekiel, [facility] Incoming Radiant Results From [facility] - 03/25/2020 3:02 PM EDT EXAMINATION: MRI [...] suggestive of sprains. No definite tear identified. [place], [place] MRI SHOULDER RIGHT WO CONTRA [facility] 02-12-2020 MRI SHOULDER RIGHT WO CONTRAST [...] approximately 7 mm in greatest AP dimension. Uzbyynoj-ut-qylrcw underlying supraspinatus tendinopathy and granulation tissue. Gdpz-vh-okoquseb underlying infraspinatus tendinopathy. Mild subscapularis tendinopathy. Teres [...] 6. No paralabral cyst formation. GLENOHUMERAL JOINT: Xnhb-np-nekjrgmz glenohumeral chondromalacia. Small amount of fluid in [...] dimension with tear gap measuring 1.5 cm. Uchzljyh-me-jgchvo underlying supraspinatus tendinopathy and granulation tissue. Ybqi-fa-asvirkwl underlying infraspinatus tendinopathy. 2. Mild subscapularis tendinopathy. 3. Mild atrophy and fatty degeneration of subscapularis. 4. Mild diffuse labral degeneration. Degenerative tearing along the superior labrum. 5. Qwbl-os-mmsrnbyd glenohumeral chondromalacia. 6. Mild degenerative change of the right AC joint. 7. Prior biceps tenodesis. 8. Susceptibility artifact and marrow edema surrounding a stress riser at the anterior humeral head. Interpreted by: Rodrigo Purcell MD Signed by: Rodrigo Purcell MD 02/12/20 Final result Normal [facility] 1. Prior rotator cuf f repair. Region of full-thickness tearing of the critical zone along mid and posterior supraspinatus measuring 7 mm in greatest AP dimension with tear gap measuring 1.5 cm. Xfzykque-jg-fiesjj underlying supraspinatus tendinopathy and granulation tissue. Qkcw-cm-htwvyurc underlying infraspinatus tendinopathy. 2. Mild subscapularis tendinopathy. 3. Mild atrophy and fatty degeneration of subscapularis. 4. Mild diffuse labral degeneration. Degenerative tearing along the superior labrum. 5. Tbpg-aw-udvzfifk glenohumeral chondromalacia. 6. Mild degenerative change of the right AC joint. 7. Prior biceps tenodesis. 8. Susceptibility artifact and marrow edema surrounding a stress riser at the anterior humeral head. [facility], [place] EXAMINATION: MRI OF THE [...] approximately 7 mm in greatest AP dimension. Dqwekbfq-fn-kptwpr underlying supraspinatus tendinopathy and granulation tissue. Jqyj-tg-ocsuvhxw underlying infraspinatus tendinopathy. Mild subscapularis tendinopathy. Teres [...] 6. No paralabral cyst formation. GLENOHUMERAL JOINT: Zokj-xv-ouictuny glenohumeral chondromalacia. Small amount of fluid in [...] unremarkable in appearance. No right axillary lymphadenopathy. [facility]- [place], [place] E[place]iel, Mhpn Incoming Radiant Results From [facility] - 02/12/2020 3:46 PM EDT EXAMINATION: MRI [...] approximately 7 mm in greatest AP dimension. Vjybaira-we-tkvdfa underlying supraspinatus tendinopathy and granulation tissue. Gwbd-yt-wlscdsow underlying infraspinatus tendinopathy. Mild subscapularis tendinopathy. Teres [...] 6. No paralabral cyst formation. GLENOHUMERAL JOINT: Thdp-pg-ucexdrec glenohumeral chondromalacia. Small amount of fluid in [...] dimension with tear gap measuring 1.5 cm. Jlyjvuux-yy-erngro underlying supraspinatus tendinopathy and granulation tissue. Eidf-qj-riknlszv underlying infraspinatus tendinopathy. 2. Mild subscapularis tendinopathy. 3. Mild atrophy and fatty degeneration of subscapularis. 4. Mild diffuse labral degeneration. Degenerative tearing along the superior labrum. 5. Ovjs-mh-ttwqcwmm glenohumeral chondromalacia. 6. Mild degenerative change of the right AC joint. 7. Prior biceps tenodesis. 8. Susceptibility artifact and marrow edema surrounding a stress riser at the anterior humeral head. [place], [place] Glucose, Whole Bloodon 12-27 Glucose [Mass/Vol] 113 mg/dL High 74 - 100 mg/dL [place] Interpretation and review of laboratory results Abnormal [place] BUNon 12-26-2019 Urea nitrogen [Mass/Vol] 16 mg/dL 6 - 20 mg/dL [place] BUN (Urea N)on 12-26-2019 Urea nitrogen [Mass/Vol] 16 mg/dL Normal 6-20 [facility] Comment on above: Performed By: #### H CT, BUN, CREG, GLU, LYTE #### [facility] [address] [place] [address] Administration Clerk: Domingo Rayo MD Creatinine w/GFRon 0 (cont.) Normal [facility] Comment on above: Result Comment: Aver age GFR for 50-59 years old: 93 mL/min/1.73sq m Chronic Kidney Disease: <60 mL/min/1.73sq m Kidney failure: <15 mL/min/1.73sq m eGFR calculated using average adult body mass. Additional eGFR calculator available at: http://www.BitGo/multiple_crcl_2012.htm Performed By: #### H CT, BUN, CREG, GLU, LYTE #### [facility] [address] [place] [address] Administration Clerk: Domingo Rayo MD Creatinine [Mass/Vol] 1.15 mg/dL Normal 0.70-1.20 [facility] Comment on above: Performed By: #### H CT, BUN, CREG, GLU, LYTE #### [facility] [address] [place] [address] Administration Clerk: Domingo Rayo MD GFR, Amer >60 Normal >60 [place] Comment on above: Performed By: #### H CT, BUN, CREG, GLU, LYTE #### [facility] [address] [place] [address] Administration Clerk: Domingo Rayo MD GFR,non Amer >60 Normal >60 [facility] Comment on above: Performed By: #### H CT, BUN, CREG, GLU, LYTE #### [facility] [address] [place] [address] Administration Clerk: Domingo Rayo MD Staging: Normal [facility] Comment on above: Result Comment: Stag e 1: Some kidney damage normal GFR Stage 2: Mild kidney damage GFR 60-89 Stage 3: Moderate kidney damage GFR 30-59 Stage 4: Severe kidney damage GFR 15-29 Stage 5: Severe kidney damage GFR <15 ESRD - chronic treatment by dialysis or transplant Performed By: #### H CT, BUN, CREG, GLU, LYTE #### [facility] [address] [place] [address] Administration Clerk: Domingo Rayo MD Creatinine, Serumon 12-26-19 Creatinine [Mass/Vol] 1.15 mg/dL 0.7 - 1.2 mg/dL [place] GFR >60 >60 mL/min [place] GFR Non- >60 >60 mL/min [place] Electrolyte Panelon 12-26-19 Anion gap [Moles/Vol] 17 mmol/L 9 - 17 mmol/L [place] Chloride [Moles/Vol] 95 mmol/L Low 98 - 107 mmol/L [place] CO2 [Moles/Vol] 24 mmol/L 20 - 31 mmol/L [place] Potassium [Moles/Vol] 3.7 mmol/L 3.7 - 5.3 mmol/L [place] Sodium [Moles/Vol] 136 mmol/L 135 - 144 mmol/L [place] Electrolyteson 12-26-2019 Anion gap [Moles/Vol] 17 mmol/L Normal 03-27 [facility] Comment on above: Performed By: #### H CT, BUN, CREG, GLU, LYTE #### [facility] [address] [place] [address] Administration Clerk: Domingo Rayo MD Chloride [Moles/Vol] 95 mmol/L Low 98-107 [facility] Comment on above: Performed By: #### H CT, BUN, CREG, GLU, LYTE #### [facility] [address] [place] [address] Administration Clerk: Domingo Rayo MD CO2 [Moles/Vol] 24 mmol/L Normal 20-31 [facility] Comment on above: Performed By: #### H CT, BUN, CREG, GLU, LYTE #### [facility] [address] [place] [address] Administration Clerk: Domingo Rayo MD Potassium [Moles/Vol] 3.7 mmol/L Normal 3.7-5.3 [facility] Comment on above: Performed By: #### H CT, BUN, CREG, GLU, LYTE #### [facility] [address] [place] [address] Administration Clerk: Domingo Rayo MD Sodium [Moles/Vol] 136 mmol/L Normal 135-144 [facility] Comment on above: Performed By: #### H CT, BUN, CREG, GLU, LYTE #### [facility] [address] [place] [address] Administration Clerk: Domingo Rayo MD Glucoseon 12-26-2019 Glucose [Mass/Vol] 107 mg/dL High 70-99 [facility] Comment on above: Performed By: #### H CT, BUN, CREG, GLU, LYTE #### [facility] [address] [place] [address] Administration Clerk: Domingo Rayo MD Glucose, randomon 12-26-2019 Glucose [Mass/Vol] 107 mg/dL High 70 - 99 mg/dL [facility], [place] Hematocriton 12-26-2019 Hematocrit (Bld) [Volume fraction] 47.4 % Normal 40.7-50.3 [facility] Comment on above: Performed By: #### H CT, BUN, CREG, GLU, LYTE #### [facility] [address] [place] [address] Administration Clerk: Domingo Rayo MD Hematocrit (Bld) [Volume fraction] 47.4 % 40.7 - 50.3 % [place] Metabolic Panelon 12-26-2019 GFR/1.73 sq M predicted among non-blacks MDRD (S/P/Bld) [Vol rate/Area] [place] Comment on above: Average GFR for 50-5 9 years old: 93 mL/min/1.73sq m Chronic Kidney Disease: <60 mL/min/1.73sq m Kidney failure: <15 mL/min/1.73sq m eGFR calculated using average adult body mass. Additional eGFR calculator available at: http://www.BitGo/multiple_crcl_2012.htm Stage 1: Some kidney damage normal GFR Stage 2: Mild kidney damage GFR 60-89 Stage 3: Moderate kidney damage GFR 30-59 Stage 4: Severe kidney damage GFR 15-29 Stage 5: Severe kidney damage GFR <15 ESRD - chronic treatment by dialysis or transplant Otheron 12-26-2019 Interpretation and review of laboratory results Abnormal [place] COVID-19on 12-25-2019 SARS-CoV-2 Not Detected Not Detected [place] Comment on above: The specimen is NEGATIVE for SARS-CoV-2, the novel coronavirus associated with COVID-19. A negative result does not rule out COVID-19. This test has been authorized by the FDA under an Emergency Use Authorization (EUA) for use by authorized laboratories. Fact sheet for Healthcare Providers: https://www.fda.gov/media/085389/download Fact sheet for Patients: https://www.fda.gov/media/972796/download METHODOLOGY: RT-PCR [facility]-CoV-2, [facility] [place] [place] SARS-CoV-2, Rapid [facility] [place] Source .NASOPHARYNGEAL SWAB [place], [place] [id number] 12-25-2019 SARS-CoV-2,Rapid Normal [place] Comment on above: Performed By: #### C OVID #### [facility] [address] [place] [address] Administration Clerk: Sam Jacobs MD [facility] [address] [place] [address] [address] [place] [address] Administration Clerk: Domingo Rayo MD SARS-CoV-2 [facility] Comment on above: Performed By: #### C OVID #### [facility] [address] [place] [address] Administration Clerk: Sam Jacobs MD [address] [place] [address] Administration Clerk: Domingo Rayo MD SARS-CoV-[address] [facility] Comment on above: Result Comment: The specimen is NEGATIVE for SARS-CoV-2, the novel coronavirus associated with COVID-19. A negative result does not rule out COVID-19. This test has been authorized by the FDA under an Emergency Use Authorization (EUA) for use by authorized laboratories. Fact sheet for Healthcare Providers: https://www.fda.gov/media/669834/download Fact sheet for Patients: https://www.fda.gov/media/062534/download METHODOLOGY: RT-PCR Performed By: #### C OVID #### [facility] [address] [place] [address] Administration Clerk: Sam Jacobs MD [facility] [address] [place] [address] [place] [address] Administration Clerk: Domingo Rayo MD EKG 12 Leadon 12-24-2019 Atrial Rate 92 BPM [facility], [place] P [place] 52 degrees [facility] P-R Interval 154 ms [facility], [place] Q-T Interval 360 ms [facility], [place] QRS Duration 96 ms [facility], [place] QTc Calculation (Bazett) 445 ms [facility], [place] R [place] 34 degrees [facility], [place] T [place] 46 degrees [facility], [place] Ventricular Rate 92 BPM [facility], [place] Normal sinus rhythm Normal ECG No previous ECGs available Confirmed by Federico Burks MD ([id number]) on 12/24/2019 4:59:35 PM [facility], [place] E[place]iel, Mhpn Incoming E kg Results From [facility] - 12/24/2019 4:59 PM EDT Normal sinus rhythm Normal ECG No previous ECGs available Confirmed by Federico Burks MD ([id number]) on 12/24/2019 4:59:35 PM [facility], JACQUELINE [id number] 12-24-2019 SARS-CoV-2 Source .NASOPHARYNGEAL SWAB Normal [facility] Comment on above: Performed By: #### C OVID #### [facility] [address], [place] [id number] Administration Clerk: Sam Jacobs MD [facility] [address] [place] [address] Administration Clerk: Domingo Rayo MD Laboratory - Chemistry and C hemistry - challengeon 12-20-2019 Bilirubin Ql (U) Negative Invalid Interpretation Code Negative [facility] (U) [Mass/Vol] normal Invalid Interpretation Code normal [facility] - Hematology and Cell countson 12-20-2019 Hemoglobin Ql (U) Negative Invalid Interpretation Code Negative [facility] - Urinalysison Leukocyte esterase Test strip Ql (U) Negative Invalid Interpretation Code Negative [facility] Nitrite Ql (U) Negative Invalid Interpretation Code Negative [facility] Protein Ql (U) Negative Invalid Interpretation Code Negative [facility] Metabolic Panelon 12-20-2019 Anion gap [Moles/Vol] 20 mmol/L Invalid Interpretation Code 10-20 [facility] Calcium [Mass/Vol] 9.10 mg/dL Invalid Interpretation Code 8.5-10.8 [facility] Chloride [Moles/Vol] 97.0 mmol/L Invalid Interpretation Code 100-112 [facility] CO2 [Moles/Vol] 23.0 mmol/L Invalid Interpretation Code 23-30 [facility] Creatinine [Mass/Vol] 1.0 mg/dL Invalid Interpretation Code 0.5-1.5 [facility] GFR/1.73 sq M predicted among non-blacks MDRD (S/P/Bld) [Vol rate/Area] 78 mL/min/{1.73_m2} Invalid Interpretation Code [facility] Glucose [Mass/Vol] 90.0 mg/dL Invalid Interpretation Code 80-117 [facility] HbA1c (Bld) [Mass fraction] 6.80 % Invalid Interpretation Code 4.3-6.3 [facility] Potassium [Moles/Vol] 4.10 mmol/L Invalid Interpretation Code 3.5-5.3 [facility] Sodium [Moles/Vol] 136.0 mmol/L Invalid Interpretation Code 135-148 [facility] Urea nitrogen [Mass/Vol] 16.0 mg/dL Invalid Interpretation Code 7-25 [facility] Urea nitrogen/Creatinine [Mass ratio] 16 mg/mg Invalid Interpretation Code 6-20 [facility] Otheron 12-20-2019 Bilirubin Ql (U) Negative Negative [facility] Glucose Test strip (U) [Mass/Vol] 4+ Invalid Interpretation Code Negative [facility] Hemoglobin Ql (U) Negative Negative [facility] Nitrite Ql (U) Negative Negative [facility] pH (U) 5 [pH] Invalid Interpretation Code 5.0-9.0 [facility] Protein Ql (U) Negative Negative [facility] Urobilinogen Test strip (U) [Mass/Vol] normal normal [facility] 148 [facility] 148.0 mg/dL Invalid Interpretation Code [facility] Urinalysison 12-20-2019 Clarity (U) clear Invalid Interpretation Code Clear [facility] Color (U) yellow Invalid Interpretation Code yellow [facility] Ketones Ql (U) 1+ Invalid Interpretation Code Negative [facility] Leukocyte esterase Test strip Ql (U) Negative Negative [facility] Specific gravity (U) [Rel density] 1.010 Invalid Interpretation Code 1.003-1.030 [facility] Cardiacon 11-19-2019 Cholesterol [Mass/Vol] 153.0 mg/dL Invalid Interpretation Code 0-200 [facility] Cholesterol in HDL [Mass/Vol] 56.0 mg/dL Invalid Interpretation Code 36-100 [facility] Cholesterol in LDL [Mass/Vol] 80.0 mg/dL Invalid Interpretation Code 0-130 [facility] Triglyceride [Mass/Vol] 84.0 mg/dL Invalid Interpretation Code 30-150 [facility] Metabolic Panelon 11-19-2019 Albumin [Mass/Vol] 4.60 g/dL Invalid Interpretation Code 3.7-4.5 [facility] ALP [Catalytic activity/Vol] 75.0 U/L Invalid Interpretation Code 31-155 [facility] ALT [Catalytic activity/Vol] 54.0 U/L Invalid Interpretation Code 0-50 [facility] Anion gap [Moles/Vol] 18 mmol/L Invalid Interpretation Code 10-20 [facility] AST [Catalytic activity/Vol] 37.0 U/L Invalid Interpretation Code 0-40 [facility] Bilirubin [Mass/Vol] 0.50 mg/dL Invalid Interpretation Code 0.0-1.0 [facility] Calcium [Mass/Vol] 9.40 mg/dL Invalid Interpretation Code 8.5-10.8 [facility] Chloride [Moles/Vol] 99.0 mmol/L Invalid Interpretation Code 100-112 [facility] CO2 [Moles/Vol] 27.0 mmol/L Invalid Interpretation Code 23-30 [facility] Creatinine [Mass/Vol] 1.0 mg/dL Invalid Interpretation Code 0.5-1.5 [facility] GFR/1.73 sq M predicted among non-blacks MDRD (S/P/Bld) [Vol rate/Area] 78 mL/min/{1.73_m2} Invalid Interpretation Code [facility] Glucose [Mass/Vol] 120.0 mg/dL Invalid Interpretation Code 80-117 [facility] HbA1c (Bld) [Mass fraction] 6.80 % Invalid Interpretation Code 4.3-6.3 [facility] Potassium [Moles/Vol] 4.0 mmol/L Invalid Interpretation Code 3.5-5.3 [facility] Protein [Mass/Vol] 7.80 g/dL Invalid Interpretation Code 6.3-7.9 [facility] Sodium [Moles/Vol] 140.0 mmol/L Invalid Interpretation Code 135-148 [facility] Urea nitrogen [Mass/Vol] 13.0 mg/dL Invalid Interpretation Code 7-25 [facility] Urea nitrogen/Creatinine [Mass ratio] 13 mg/mg Invalid Interpretation Code 6-20 [facility] Otheron 11-19-2019 Albumin (U) [Mass/Vol] 22.3 Invalid Interpretation Code <17.0 [facility] Albumin/Globulin [Mass ratio] 1.4 {ratio} Invalid Interpretation Code 1.0-2.4 [facility] Cholesterol in VLDL [Mass/Vol] 17.0 mg/dL Invalid Interpretation Code 0-39 [facility] Cholesterol.total/C holesterol in HDL [Mass ratio] 3 {ratio} Invalid Interpretation Code [facility] 148 [facility] 148.0 mg/dL Invalid Interpretation Code [facility] 54.0 U/L 0-50 [facility] Urinalysison 11-19-2019 Albumin/Creatinine DL <= 20 mg/L (U) [Mass ratio] 29.8 mg/g Invalid Interpretation Code 0.0-30.0 [facility] Creatinine (U) [Mass/Vol] 74.90 mg/dL Invalid Interpretation Code Not Estab. mg/dL [facility] Metabolic Panelon 08-28-2019 Anion gap [Moles/Vol] 16 mmol/L Invalid Interpretation Code 10-20 [facility] Calcium [Mass/Vol] 9.70 mg/dL Invalid Interpretation Code 8.5-10.8 [facility] Chloride [Moles/Vol] 100.0 mmol/L Invalid Interpretation Code 100-112 [facility] CO2 [Moles/Vol] 27.0 mmol/L Invalid Interpretation Code 23-30 [facility] Creatinine [Mass/Vol] 1.10 mg/dL Invalid Interpretation Code 0.5-1.5 [facility] GFR/1.73 sq M predicted among non-blacks MDRD (S/P/Bld) [Vol rate/Area] 70 mL/min/{1.73_m2} Invalid Interpretation Code [facility] Glucose [Mass/Vol] 137.0 mg/dL Invalid Interpretation Code 80-117 [facility] Potassium [Moles/Vol] 4.0 mmol/L Invalid Interpretation Code 3.5-5.3 [facility] Sodium [Moles/Vol] 139.0 mmol/L Invalid Interpretation Code 135-148 [facility] Urea nitrogen [Mass/Vol] 26.0 mg/dL Invalid Interpretation Code 7-25 [facility] Urea nitrogen/Creatinine [Mass ratio] 24 mg/mg Invalid Interpretation Code 6-20 [facility] Laboratory - Chemistry and C hemistry - challengeon 08-21-2019 Bilirubin Ql (U) Negative Invalid Interpretation Code Negative [facility] Ketones Ql (U) Negative Invalid Interpretation Code Negative [facility] Urobilinogen (U) [Mass/Vol] normal Invalid Interpretation Code normal [facility] - Urinalysison Nitrite Ql (U) Negative Invalid Interpretation Code Negative [facility] Metabolic Panelon 08-21-2019 Anion gap [Moles/Vol] 18 mmol/L Invalid Interpretation Code 10-20 [facility] Calcium [Mass/Vol] 9.70 mg/dL Invalid Interpretation Code 8.5-10.8 [facility] Chloride [Moles/Vol] 97.0 mmol/L Invalid Interpretation Code 100-112 [facility] CO2 [Moles/Vol] 25.0 mmol/L Invalid Interpretation Code 23-30 [facility] Creatinine [Mass/Vol] 2.30 mg/dL Invalid Interpretation Code 0.5-1.5 [facility] GFR/1.73 sq M predicted among non-blacks MDRD (S/P/Bld) [Vol rate/Area] 30 mL/min/{1.73_m2} Invalid Interpretation Code [facility] Glucose [Mass/Vol] 231.0 mg/dL Invalid Interpretation Code 80-117 [facility] HbA1c (Bld) [Mass fraction] 7.60 % Invalid Interpretation Code 4.3-6.3 [facility] Potassium [Moles/Vol] 4.50 mmol/L Invalid Interpretation Code 3.5-5.3 [facility] Sodium [Moles/Vol] 135.0 mmol/L Invalid Interpretation Code 135-148 [facility] Urea nitrogen [Mass/Vol] 34.0 mg/dL Invalid Interpretation Code 7-25 [facility] Urea nitrogen/Creatinine [Mass ratio] 15 mg/mg Invalid Interpretation Code 6-20 [facility] Otheron 08-21-2019 Bilirubin Ql (U) Negative Negative [facility] Gamma glutamyl transferase [Catalytic activity/Vol] 72 U/L Invalid Interpretation Code 7-51 [facility] Glucose Test strip (U) [Mass/Vol] 4+ Invalid Interpretation Code Negative [facility] Hemoglobin Ql (U) Trace Invalid Interpretation Code Negative [facility] Nitrite Ql (U) Negative Negative [facility] pH (U) 5 [pH] Invalid Interpretation Code 5.0-9.0 [facility] Protein Ql (U) 1+ Invalid Interpretation Code Negative [facility] Urobilinogen Test strip (U) [Mass/Vol] normal normal [facility] 171 [facility] 171.0 mg/dL Invalid Interpretation Code [facility] Urinalysison 08-21-2019 Clarity (U) Clear Invalid Interpretation Code Clear [facility] Color (U) yellow Invalid Interpretation Code yellow [facility] Ketones Ql (U) Negative Negative [facility] Leukocyte esterase Test strip Ql (U) Trace Invalid Interpretation Code Negative [facility] Specific gravity (U) [Rel density] 1.015 Invalid Interpretation Code 1.003-1.030 [facility] 05-22-2019 Cholesterol [Mass/Vol] 164.0 mg/dL Invalid Interpretation Code 0-200 [facility] Cholesterol in HDL [Mass/Vol] 33.0 mg/dL Invalid Interpretation Code 36-100 [facility] Cholesterol in LDL [Mass/Vol] 89.0 mg/dL Invalid Interpretation Code 0-130 [facility] Triglyceride [Mass/Vol] 208.0 mg/dL Invalid Interpretation Code 30-150 [facility] Hematologyon 05-22-2019 Hematocrit (Bld) [Volume fraction] 44.80 % Invalid Interpretation Code 37.8-51.0 [facility] Hemoglobin (Bld) [Mass/Vol] 15.30 g/dL Invalid Interpretation Code 12.6-17.0 [facility] MCH (RBC) [Entitic mass] 31.40 pg Invalid Interpretation Code 25.7-33.8 [facility] MCV (RBC) [Entitic vol] 92.0 fL Invalid Interpretation Code 81.0-100.2 [facility] Platelets (Bld) [#/Vol] 316.0 10*3/uL Invalid Interpretation Code 150-400 [facility] RBC (Bld) [#/Vol] 4.870 10*6/uL Invalid Interpretation Code 4.34-5.61 [facility] WBC (Bld) [#/Vol] 8.50 10*3/uL Invalid Interpretation Code 3.9-10.3 [facility] Imm/Pathon 05-22-2019 Prostate specific Ag [Mass/Vol] 0.59 ng/mL Invalid Interpretation Code 0.00-4.00 [facility] - Chemistry and C hemistry - challengeon 05-22-2019 Bilirubin Ql (U) Negative Invalid Interpretation Code Negative [facility] Ketones Ql (U) Negative Invalid Interpretation Code Negative [facility] Urobilinogen (U) [Mass/Vol] normal Invalid Interpretation Code normal [facility] - Hematology and Cell countson 05-22-2019 Hemoglobin Ql (U) Negative Invalid Interpretation Code Negative [facility] - Urinalysison Leukocyte esterase Test strip Ql (U) Negative Invalid Interpretation Code Negative [facility] Nitrite Ql (U) Negative Invalid Interpretation Code Negative [facility] Protein Ql (U) Negative Invalid Interpretation Code Negative [facility] Metabolic Panelon 05-22-2019 Albumin [Mass/Vol] 4.30 g/dL Invalid Interpretation Code 3.7-4.5 [facility] ALP [Catalytic activity/Vol] 79.0 U/L Invalid Interpretation Code 31-155 [facility] ALT [Catalytic activity/Vol] 23.0 U/L Invalid Interpretation Code 0-50 [facility] Anion gap [Moles/Vol] 16 mmol/L Invalid Interpretation Code 10-20 [facility] AST [Catalytic activity/Vol] 15.0 U/L Invalid Interpretation Code 0-40 [facility] Bilirubin [Mass/Vol] 0.40 mg/dL Invalid Interpretation Code 0.0-1.0 [facility] Calcium [Mass/Vol] 9.60 mg/dL Invalid Interpretation Code 8.5-10.8 [facility] Chloride [Moles/Vol] 97.0 mmol/L Invalid Interpretation Code 100-112 [facility] CO2 [Moles/Vol] 27.0 mmol/L Invalid Interpretation Code 23-30 [facility] Creatinine [Mass/Vol] 1.10 mg/dL Invalid Interpretation Code 0.5-1.5 [facility] GFR/1.73 sq M predicted among non-blacks MDRD (S/P/Bld) [Vol rate/Area] 70 mL/min/{1.73_m2} Invalid Interpretation Code [facility] Glucose [Mass/Vol] 101.0 mg/dL Invalid Interpretation Code 80-117 [facility] Potassium [Moles/Vol] 4.30 mmol/L Invalid Interpretation Code 3.5-5.3 [facility] Protein [Mass/Vol] 7.60 g/dL Invalid Interpretation Code 6.3-7.9 [facility] Sodium [Moles/Vol] 136.0 mmol/L Invalid Interpretation Code 135-148 [facility] Urea nitrogen [Mass/Vol] 21.0 mg/dL Invalid Interpretation Code 7-25 [facility] Urea nitrogen/Creatinine [Mass ratio] 19 mg/mg Invalid Interpretation Code 6-20 [facility] Otheron 05-22-2019 Albumin/Globulin [Mass ratio] 1.3 {ratio} Invalid Interpretation Code 1.0-2.4 [facility] Bilirubin Ql (U) Negative Negative [facility] Cholesterol in VLDL [Mass/Vol] 42.0 mg/dL Invalid Interpretation Code 0-39 [facility] Cholesterol.total/C holesterol in HDL [Mass ratio] 5 {ratio} Invalid Interpretation Code [facility] Collection time (Andrei) [Date/time] 1:00 pm Invalid Interpretation Code [facility] Erythrocyte distribution width (RBC) [Ratio] 12.40 % Invalid Interpretation Code 11.5-15.5 [facility] Glucose Test strip (U) [Mass/Vol] 4+ Invalid Interpretation Code Negative [facility] Hemoglobin Ql (U) Negative Negative [facility] MCHC (RBC) [Mass/Vol] 34.20 g/dL Invalid Interpretation Code 32.0-36.0 [facility] Nitrite Ql (U) Negative Negative [facility] pH (U) 5 [pH] Invalid Interpretation Code 5.0-9.0 [facility] Platelet mean volume (Bld) [Entitic vol] 9.40 fL Invalid Interpretation Code 8.3-11.5 [facility] Protein Ql (U) Negative Negative [facility] Urobilinogen Test strip (U) [Mass/Vol] normal normal [facility] 23.0 U/L 0-50 [facility] Urinalysison 05-22-2019 Clarity (U) Clear Invalid Interpretation Code Clear [facility] Color (U) yellow Invalid Interpretation Code yellow [facility] Ketones Ql (U) Negative Negative [facility] Leukocyte esterase Test strip Ql (U) Negative Negative [facility] Specific gravity (U) [Rel density] 1.015 Invalid Interpretation Code 1.003-1.030 [facility] - Chemistry and C hemistry - challengeon 04-09-2019 Bilirubin Ql (U) Negative Invalid Interpretation Code Negative [facility] Urobilinogen (U) [Mass/Vol] normal Invalid Interpretation Code normal [facility] - Hematology and Cell countson 04-09-2019 Hemoglobin Ql (U) Negative Invalid Interpretation Code Negative [facility] - Urinalysison Leukocyte esterase Test strip Ql (U) Negative Invalid Interpretation Code Negative [facility] Nitrite Ql (U) Negative Invalid Interpretation Code Negative [facility] Metabolic Panelon 04-09-2019 Albumin [Mass/Vol] 4.50 g/dL Invalid Interpretation Code 3.7-4.5 [facility] ALP [Catalytic activity/Vol] 73.0 U/L Invalid Interpretation Code 31-155 [facility] ALT [Catalytic activity/Vol] 47.0 U/L Invalid Interpretation Code 0-50 [facility] Anion gap [Moles/Vol] 17 mmol/L Invalid Interpretation Code 10-20 [facility] AST [Catalytic activity/Vol] 41.0 U/L Invalid Interpretation Code 0-40 [facility] Bilirubin [Mass/Vol] 0.50 mg/dL Invalid Interpretation Code 0.0-1.0 [facility] Calcium [Mass/Vol] 9.30 mg/dL Invalid Interpretation Code 8.5-10.8 [facility] Chloride [Moles/Vol] 97.0 mmol/L Invalid Interpretation Code 100-112 [facility] CO2 [Moles/Vol] 27.0 mmol/L Invalid Interpretation Code 23-30 [facility] Creatinine [Mass/Vol] 0.90 mg/dL Invalid Interpretation Code 0.5-1.5 [facility] GFR/1.73 sq M predicted among non-blacks MDRD (S/P/Bld) [Vol rate/Area] 88 mL/min/{1.73_m2} Invalid Interpretation Code [facility] Glucose [Mass/Vol] 186.0 mg/dL Invalid Interpretation Code 80-117 [facility] HbA1c (Bld) [Mass fraction] 7.70 % Invalid Interpretation Code 4.3-6.3 [facility] Potassium [Moles/Vol] 4.0 mmol/L Invalid Interpretation Code 3.5-5.3 [facility] Protein [Mass/Vol] 7.60 g/dL Invalid Interpretation Code 6.3-7.9 [facility] Sodium [Moles/Vol] 137.0 mmol/L Invalid Interpretation Code 135-148 [facility] Urea nitrogen [Mass/Vol] 16.0 mg/dL Invalid Interpretation Code 7-25 [facility] Urea nitrogen/Creatinine [Mass ratio] 18 mg/mg Invalid Interpretation Code 6-20 [facility] Otheron 04-09-2019 Albumin (U) [Mass/Vol] 48.5 Invalid Interpretation Code <17.0 [facility] Albumin/Globulin [Mass ratio] 1.5 {ratio} Invalid Interpretation Code 1.0-2.4 [facility] Bilirubin Ql (U) Negative Negative [facility] [place] [employer] [facility] Gamma glutamyl transferase [Catalytic activity/Vol] 52 U/L Invalid Interpretation Code 7-51 [facility] Glucose Test strip (U) [Mass/Vol] 4+ Invalid Interpretation Code Negative [facility] Hemoglobin Ql (U) Negative Negative [facility] [address] [place] [employer] [facility] Nitrite Ql (U) Negative Negative [facility] pH (U) 6 [pH] Invalid Interpretation Code 5.0-9.0 [facility] Protein Ql (U) 1+ Invalid Interpretation Code Negative [facility] Urobilinogen Test strip (U) [Mass/Vol] normal normal [facility] 174 [facility] 47.0 U/L 0-50 [facility] 174.0 mg/dL Invalid Interpretation Code [facility] Urinalysison 04-09-2019 Albumin/Creatinine DL <= 20 mg/L (U) [Mass ratio] 70.7 mg/g Invalid Interpretation Code 0.0-30.0 [facility] Clarity (U) clear Invalid Interpretation Code Clear [facility] Color (U) yellow Invalid Interpretation Code yellow [facility] Creatinine (U) [Mass/Vol] 68.60 mg/dL Invalid Interpretation Code Not Estab. mg/dL [facility] Ketones Ql (U) 2+ Invalid Interpretation Code Negative [facility] Leukocyte esterase Test strip Ql (U) Negative Negative [facility] Specific gravity (U) [Rel density] 1.010 Invalid Interpretation Code 1.003-1.030 [facility] - Chemistry and C hemistry - challengeon 12-08-2018 Bilirubin Ql (U) Negative Invalid Interpretation Code Negative [facility] Urobilinogen (U) [Mass/Vol] normal Invalid Interpretation Code normal [facility] - Hematology and Cell countson 12-08-2018 Hemoglobin Ql (U) Negative Invalid Interpretation Code Negative [facility] - Urinalysison Leukocyte esterase Test strip Ql (U) Negative Invalid Interpretation Code Negative [facility] Nitrite Ql (U) Negative Invalid Interpretation Code Negative [facility] Protein Ql (U) Negative Invalid Interpretation Code Negative [facility] Metabolic Panelon 12-08-2018 Glucose mass conc 255.0 mg/dL Invalid Interpretation Code 80-117 [facility] Hemoglobin A1c/Hemoglobin.tota l mass fraction (Bld) 8.80 % Invalid Interpretation Code 4.3-6.3 [facility] Otheron 12-08-2018 Bilirubin Ql (U) Negative Negative [facility] Glucose Test strip mass conc (U) 4+ Invalid Interpretation Code Negative [facility] Hemoglobin Ql (U) Negative Negative [facility] Nitrite Ql (U) Negative Negative [facility] pH (U) 6 [pH] Invalid Interpretation Code 5.0-9.0 [facility] Protein Ql (U) Negative Negative [facility] Urobilinogen Test strip mass conc (U) normal normal [facility] 206 [facility] 206.0 mg/dL Invalid Interpretation Code [facility] Urinalysison 12-08-2018 Clarity Nom (U) Clear Invalid Interpretation Code Clear [facility] Color Nom (U) yellow Invalid Interpretation Code yellow [facility] Ketones Ql (U) 1+ Invalid Interpretation Code Negative [facility] Leukocyte esterase Test strip Ql (U) Negative Negative [facility] Specific gravity Relative Density (U) 1.015 Invalid Interpretation Code 1.003-1.030 [facility] 08-23-2018 Cholesterol in HDL mass conc 35.0 mg/dL Invalid Interpretation Code 36-100 [facility] Cholesterol in LDL mass conc 90.0 mg/dL Invalid Interpretation Code 0-130 [facility] Cholesterol mass conc 204.0 mg/dL Invalid Interpretation Code 0-200 [facility] Triglyceride mass conc 396.0 mg/dL Invalid Interpretation Code 30-150 [facility] Hematologyon 08-23-2018 Hematocrit Volume Fraction (Bld) 44.0 % Invalid Interpretation Code 37.8-51.0 [facility] Hemoglobin mass conc (Bld) 15.20 g/dL Invalid Interpretation Code 12.6-17.0 [facility] MCH Entitic mass (RBC) 32.0 pg Invalid Interpretation Code 25.7-33.8 [facility] MCV Entitic volume (RBC) 92.60 fL Invalid Interpretation Code 81.0-100.2 [facility] Platelets #/vol (Bld) 244.0 10*3/uL Invalid Interpretation Code 150-400 [facility] RBC #/vol (Bld) 4.750 10*6/uL Invalid Interpretation Code 4.34-5.61 [facility] WBC #/vol (Bld) 6.80 10*3/uL Invalid Interpretation Code 3.9-10.3 [facility] Imm/Pathon 08-23-2018 Prostate specific Ag mass conc 0.61 ng/mL Invalid Interpretation Code 0.00-4.00 [facility] Metabolic Panelon 08-23-2018 Albumin mass conc 4.50 g/dL Invalid Interpretation Code 3.7-4.5 [facility] ALP enzyme act/vol 75.0 U/L Invalid Interpretation Code 31-155 [facility] ALT enzyme act/vol 66.0 U/L Invalid Interpretation Code 0-50 [facility] Anion gap molar conc 20 mmol/L Invalid Interpretation Code 10-20 [facility] AST enzyme act/vol 39.0 U/L Invalid Interpretation Code 0-40 [facility] Bilirubin mass conc 0.40 mg/dL Invalid Interpretation Code 0.0-1.0 [facility] Calcium mass conc 9.40 mg/dL Invalid Interpretation Code 8.5-10.8 [facility] Chloride molar conc 96 mmol/L Invalid Interpretation Code 100-112 [facility] CO2 molar conc 28 mmol/L Invalid Interpretation Code 23-30 [facility] Creatinine mass conc 0.90 mg/dL Invalid Interpretation Code 0.5-1.5 [facility] GFR/1.73 sq M predicted among non-blacks MDRD vol rate/area (S/P/Bld) 88 mL/min/{1.73_m2} Invalid Interpretation Code [facility] Glucose mass conc 328.0 mg/dL Invalid Interpretation Code 80-117 [facility] Hemoglobin A1c/Hemoglobin.tota l mass fraction (Bld) 10.50 % Invalid Interpretation Code 4.3-6.3 [facility] Potassium molar conc 4.1 mmol/L Invalid Interpretation Code 3.5-5.3 [facility] Protein mass conc 7.60 g/dL Invalid Interpretation Code 6.3-7.9 [facility] Sodium molar conc 140 mmol/L Invalid Interpretation Code 135-148 [facility] Urea nitrogen mass conc 13.0 mg/dL Invalid Interpretation Code 7-25 [facility] Urea nitrogen/Creatinine mass ratio 14 mg/mg Invalid Interpretation Code 6-20 [facility] No Panel Informationon 08-23 1175 Invalid Interpretation Code 243-911 [facility] Otheron 08-23-2018 Albumin mass conc (U) 64.2 Invalid Interpretation Code <17.0 [facility] Albumin/Globulin mass ratio 1.5 {ratio} Invalid Interpretation Code 1.0-2.4 [facility] Cholesterol in VLDL mass conc 79.0 mg/dL Invalid Interpretation Code 0-39 [facility] Cholesterol.total/C holesterol in HDL mass ratio 6 {ratio} Invalid Interpretation Code [facility] Cobalamin (Vitamin B12) mass conc 1175 pg/mL 243-911 [facility] Erythrocyte distribution width Ratio (RBC) 11.70 % Invalid Interpretation Code 11.5-15.5 [facility] MCHC mass conc (RBC) 34.50 g/dL Invalid Interpretation Code 32.0-36.0 [facility] Platelet mean volume Entitic volume (Bld) 9.80 fL Invalid Interpretation Code 8.3-11.5 [facility] 255 [facility] 18.9 Invalid Interpretation Code >5.4 [facility] 255.0 mg/dL Invalid Interpretation Code [facility] 66.0 U/L 0-50 [facility] Urinalysison 08-23-2018 Albumin/Creatinine DL <= 20 mg/L mass ratio (U) 334.4 mg/g Invalid Interpretation Code 0.0-30.0 [facility] Creatinine mass conc (U) 19.20 mg/dL Invalid Interpretation Code Not Estab. mg/dL [facility] - Urinalysison Glucose Test strip (U) [Mass/Vol] Negative Invalid Interpretation Code negative [facility] Protein (U) [Mass/Vol] Negative Invalid Interpretation Code negative [facility] Metabolic Panelon 06-12-2018 Glucose mass conc 195.0 mg/dL Invalid Interpretation Code 80-117 [facility] Hemoglobin A1c/Hemoglobin.tota l mass fraction (Bld) 9.50 % Invalid Interpretation Code 4.3-6.3 [facility] Otheron 06-12-2018 Glucose Test strip mass conc (U) Negative negative [facility] 226 [facility] 226.0 mg/dL Invalid Interpretation Code [facility] Urinalysison 06-12-2018 Protein mass conc (U) Negative negative [facility] 02-22-2018 Cholesterol in HDL mass conc 30.0 mg/dL Invalid Interpretation Code 36-100 [facility] Cholesterol mass conc 263.0 mg/dL Invalid Interpretation Code 0-200 [facility] Triglyceride mass conc 797.0 mg/dL Invalid Interpretation Code 30-150 [facility] Metabolic Panelon 02-22-2018 Albumin mass conc 4.50 g/dL Invalid Interpretation Code 3.7-4.5 [facility] ALP enzyme act/vol 83.0 U/L Invalid Interpretation Code 31-155 [facility] ALT enzyme act/vol 49.0 U/L Invalid Interpretation Code 0-50 [facility] Anion gap molar conc 20 mmol/L Invalid Interpretation Code 10-20 [facility] AST enzyme act/vol 22.0 U/L Invalid Interpretation Code 0-40 [facility] Bilirubin mass conc 0.70 mg/dL Invalid Interpretation Code 0.0-1.0 [facility] Calcium mass conc 9.70 mg/dL Invalid Interpretation Code 8.5-10.8 [facility] Chloride molar conc 93 mmol/L Invalid Interpretation Code 100-112 [facility] CO2 molar conc 27 mmol/L Invalid Interpretation Code 23-30 [facility] Creatinine mass conc 0.90 mg/dL Invalid Interpretation Code 0.5-1.5 [facility] GFR/1.73 sq M predicted among non-blacks MDRD vol rate/area (S/P/Bld) 88 mL/min/{1.73_m2} Invalid Interpretation Code [facility] Glucose mass conc 323.0 mg/dL Invalid Interpretation Code 80-117 [facility] Hemoglobin A1c/Hemoglobin.tota l mass fraction (Bld) 10.0 % Invalid Interpretation Code 4.3-6.3 [facility] Potassium molar conc 4.0 mmol/L Invalid Interpretation Code 3.5-5.3 [facility] Protein mass conc 7.70 g/dL Invalid Interpretation Code 6.3-7.9 [facility] Sodium molar conc 136 mmol/L Invalid Interpretation Code 135-148 [facility] Urea nitrogen mass conc 13.0 mg/dL Invalid Interpretation Code 7-25 [facility] Urea nitrogen/Creatinine mass ratio 14 mg/mg Invalid Interpretation Code 6-20 [facility] Otheron 02-22-2018 Albumin mass conc (U) 141.8 Invalid Interpretation Code <17.0 [facility] Albumin/Globulin mass ratio 1.4 {ratio} Invalid Interpretation Code 1.0-2.4 [facility] Cholesterol in VLDL mass conc 159.0 mg/dL Invalid Interpretation Code 0-39 [facility] Cholesterol.total/C holesterol in HDL mass ratio 9 {ratio} Invalid Interpretation Code [facility] 240 [facility] 49.0 U/L 0-50 [facility] 240.0 mg/dL Invalid Interpretation Code [facility] Urinalysison 02-22-2018 Albumin/Creatinine DL <= 20 mg/L mass ratio (U) 179.5 mg/g Invalid Interpretation Code 0.0-30.0 [facility] Creatinine mass conc (U) 79.0 mg/dL Invalid Interpretation Code Not Estab. mg/dL [facility] - Chemistry and C hemistry - challengeon 11-25-2017 Bilirubin Ql (U) Negative Invalid Interpretation Code Negative [facility] Ketones Ql (U) Negative Invalid Interpretation Code Negative [facility] Urobilinogen (U) [Mass/Vol] normal Invalid Interpretation Code normal [facility] - Hematology and Cell countson 11-25-2017 Hemoglobin Ql (U) Negative Invalid Interpretation Code Negative [facility] - Urinalysison Leukocyte esterase Test strip Ql (U) Negative Invalid Interpretation Code Negative [facility] Nitrite Ql (U) Negative Invalid Interpretation Code Negative [facility] Protein Ql (U) Negative Invalid Interpretation Code Negative [facility] Metabolic Panelon 11-25-2017 Glucose mass conc 350.0 mg/dL Invalid Interpretation Code 80-117 [facility] Hemoglobin A1c/Hemoglobin.tota l mass fraction (Bld) 8.60 % Invalid Interpretation Code 4.3-6.3 [facility] Otheron 11-25-2017 Bilirubin Ql (U) Negative Negative [facility] Glucose Test strip mass conc (U) 4+ Invalid Interpretation Code Negative [facility] Hemoglobin Ql (U) Negative Negative [facility] Nitrite Ql (U) Negative Negative [facility] pH (U) 5 [pH] Invalid Interpretation Code 4.5-7.8 [facility] Protein Ql (U) Negative Negative [facility] Urobilinogen Test strip mass conc (U) normal normal [facility] 200 [facility] 200.0 mg/dL Invalid Interpretation Code [facility] Urinalysison 11-25-2017 Clarity Nom (U) Clear Invalid Interpretation Code Clear [facility] Color Nom (U) yellow Invalid Interpretation Code yellow [facility] Ketones Ql (U) Negative Negative [facility] Leukocyte esterase Test strip Ql (U) Negative Negative [facility] Specific gravity Relative Density (U) 1.010 Invalid Interpretation Code 1.003-1.029 [facility] 08-24-2017 Cholesterol in HDL mass conc 39.0 mg/dL Invalid Interpretation Code 36-100 [facility] Cholesterol in LDL mass conc 138.0 mg/dL Invalid Interpretation Code 0-130 [facility] Cholesterol mass conc 237.0 mg/dL Invalid Interpretation Code 0-200 [facility] Triglyceride mass conc 301.0 mg/dL Invalid Interpretation Code 30-150 [facility] Metabolic Panelon 08-24-2017 ALT enzyme act/vol 52.0 U/L Invalid Interpretation Code 0-50 [facility] Anion gap molar conc 17 mmol/L Invalid Interpretation Code 10-20 [facility] AST enzyme act/vol 38.0 U/L Invalid Interpretation Code 0-40 [facility] Calcium mass conc 9.50 mg/dL Invalid Interpretation Code 8.5-10.8 [facility] Chloride molar conc 98 mmol/L Invalid Interpretation Code 100-112 [facility] CO2 molar conc 29 mmol/L Invalid Interpretation Code 23-30 [facility] Creatinine mass conc 0.90 mg/dL Invalid Interpretation Code 0.5-1.5 [facility] GFR/1.73 sq M predicted among non-blacks MDRD vol rate/area (S/P/Bld) 88 mL/min/{1.73_m2} Invalid Interpretation Code [facility] Glucose mass conc 146.0 mg/dL Invalid Interpretation Code 80-117 [facility] Hemoglobin A1c/Hemoglobin.tota l mass fraction (Bld) 8.40 % Invalid Interpretation Code 4.3-6.3 [facility] Potassium molar conc 3.8 mmol/L Invalid Interpretation Code 3.5-5.3 [facility] Sodium molar conc 140 mmol/L Invalid Interpretation Code 135-148 [facility] Urea nitrogen mass conc 16.0 mg/dL Invalid Interpretation Code 7-25 [facility] Urea nitrogen/Creatinine mass ratio 18 mg/mg Invalid Interpretation Code 6-20 [facility] Otheron 08-24-2017 Albumin mass conc (U) 160.5 Invalid Interpretation Code <17.0 [facility] Cholesterol in VLDL mass conc 60.0 mg/dL Invalid Interpretation Code 0-39 [facility] Cholesterol.total/C holesterol in HDL mass ratio 6 {ratio} Invalid Interpretation Code [facility] 194 [facility] 194.0 mg/dL Invalid Interpretation Code [facility] 52.0 U/L 0-50 [facility] Urinalysison 08-24-2017 Albumin/Creatinine DL <= 20 mg/L mass ratio (U) 105.5 mg/g Invalid Interpretation Code 0.0-30.0 [facility] Creatinine mass conc (U) 152.10 mg/dL Invalid Interpretation Code Not Estab. mg/dL [facility] - Urinalysison Protein (U) [Mass/Vol] Negative Invalid Interpretation Code negative [facility] Metabolic Panelon 08-01-2017 Glucose mass conc 259.0 mg/dL Invalid Interpretation Code 80-117 [facility] Hemoglobin A1c/Hemoglobin.tota l mass fraction (Bld) 8.30 % Invalid Interpretation Code 4.3-6.3 [facility] Otheron 08-01-2017 Glucose Test strip mass conc (U) trace Invalid Interpretation Code negative [facility] pH (U) 6.0 [pH] Invalid Interpretation Code 4.5-7.8 [facility] 192 [facility] 192.0 mg/dL Invalid Interpretation Code [facility] Urinalysison 08-01-2017 Protein mass conc (U) Negative negative [facility] - Chemistry and C hemistry - challengeon 03-29-2017 Bilirubin Ql (U) Negative Invalid Interpretation Code Negative [facility] Ketones Ql (U) Negative Invalid Interpretation Code Negative [facility] Urobilinogen (U) [Mass/Vol] normal Invalid Interpretation Code normal [facility] - Hematology and Cell countson 03-29-2017 Hemoglobin Ql (U) Negative Invalid Interpretation Code Negative [facility] - Urinalysison Leukocyte esterase Test strip Ql (U) Negative Invalid Interpretation Code Negative [facility] Nitrite Ql (U) Negative Invalid Interpretation Code Negative [facility] Protein Ql (U) Negative Invalid Interpretation Code Negative [facility] Metabolic Panelon 03-29-2017 Glucose mass conc 284.0 mg/dL Invalid Interpretation Code 80-117 [facility] Hemoglobin A1c/Hemoglobin.tota l mass fraction (Bld) 8.0 % Invalid Interpretation Code 4.3-6.3 [facility] Otheron 03-29-2017 Albumin mass conc (U) < 12.0 Invalid Interpretation Code < 17.0 ug/mL [facility] Bilirubin Ql (U) Negative Negative [facility] Glucose Test strip mass conc (U) 4+ Invalid Interpretation Code Negative [facility] Hemoglobin Ql (U) Negative Negative [facility] Nitrite Ql (U) Negative Negative [facility] pH (U) 6 [pH] Invalid Interpretation Code 4.5-7.8 [facility] Protein Ql (U) Negative Negative [facility] Urobilinogen Test strip mass conc (U) normal normal [facility] 183 [facility] 183.0 mg/dL Invalid Interpretation Code [facility] Urinalysison 03-29-2017 Clarity Nom (U) clear Invalid Interpretation Code Clear [facility] Color Nom (U) yellow Invalid Interpretation Code yellow [facility] Creatinine mass conc (U) 14.20 mg/dL Invalid Interpretation Code Not Estab. mg/dL [facility] Ketones Ql (U) Negative Negative [facility] Leukocyte esterase Test strip Ql (U) Negative Negative [facility] Specific gravity Relative Density (U) 1.015 Invalid Interpretation Code 1.003-1.029 [facility] - Chemistry and C hemistry - challengeon 11-23-2016 Bilirubin Ql (U) Negative Invalid Interpretation Code Negative [facility] Ketones Ql (U) Negative Invalid Interpretation Code Negative [facility] Urobilinogen (U) [Mass/Vol] normal Invalid Interpretation Code normal [facility] - Urinalysison Leukocyte esterase Test strip Ql (U) Negative Invalid Interpretation Code Negative [facility] Nitrite Ql (U) Negative Invalid Interpretation Code Negative [facility] Metabolic Panelon 11-23-2016 Glucose mass conc 195.0 mg/dL Invalid Interpretation Code 80-117 [facility] Hemoglobin A1c/Hemoglobin.tota l mass fraction (Bld) 6.90 % Invalid Interpretation Code 4.3-6.3 [facility] Otheron 11-23-2016 Bilirubin Ql (U) Negative Negative [facility] Glucose Test strip mass conc (U) 4+ Invalid Interpretation Code Negative [facility] Hemoglobin Ql (U) Trace Invalid Interpretation Code Negative [facility] Nitrite Ql (U) Negative Negative [facility] pH (U) 6 [pH] Invalid Interpretation Code 4.5-7.8 [facility] Protein Ql (U) 1+ Invalid Interpretation Code Negative [facility] Urobilinogen Test strip mass conc (U) normal normal [facility] 151 [facility] 151.0 mg/dL Invalid Interpretation Code [facility] Urinalysison 11-23-2016 Clarity Nom (U) clear Invalid Interpretation Code Clear [facility] Color Nom (U) yellow Invalid Interpretation Code yellow [facility] Ketones Ql (U) Negative Negative [facility] Leukocyte esterase Test strip Ql (U) Negative Negative [facility] Specific gravity Relative Density (U) 1.010 Invalid Interpretation Code 1.003-1.029 [facility] 09-21-2016 Cholesterol in HDL mass conc 32.0 mg/dL Invalid Interpretation Code 36-100 [facility] Cholesterol in LDL mass conc 80.0 mg/dL Invalid Interpretation Code 0-130 [facility] Cholesterol mass conc 180.0 mg/dL Invalid Interpretation Code 0-200 [facility] Triglyceride mass conc 340.0 mg/dL Invalid Interpretation Code 30-150 [facility] Metabolic Panelon 09-21-2016 ALT enzyme act/vol 48.0 U/L Invalid Interpretation Code 0-50 [facility] Anion gap molar conc 20 mmol/L Invalid Interpretation Code 10-20 [facility] AST enzyme act/vol 22.0 U/L Invalid Interpretation Code 0-40 [facility] Calcium mass conc 9.70 mg/dL Invalid Interpretation Code 8.5-10.8 [facility] Chloride molar conc 100 mmol/L Invalid Interpretation Code 100-112 [facility] CO2 molar conc 26 mmol/L Invalid Interpretation Code 23-30 [facility] Creatinine mass conc 1.10 mg/dL Invalid Interpretation Code 0.5-1.5 [facility] GFR/1.73 sq M predicted among non-blacks MDRD vol rate/area (S/P/Bld) 70 mL/min/{1.73_m2} Invalid Interpretation Code [facility] Glucose mass conc 158.0 mg/dL Invalid Interpretation Code 80-117 [facility] Hemoglobin A1c/Hemoglobin.tota l mass fraction (Bld) 7.10 % Invalid Interpretation Code 4.3-6.3 [facility] Potassium molar conc 4.1 mmol/L Invalid Interpretation Code 3.5-5.3 [facility] Sodium molar conc 142 mmol/L Invalid Interpretation Code 135-148 [facility] Urea nitrogen mass conc 18.0 mg/dL Invalid Interpretation Code 7-25 [facility] Urea nitrogen/Creatinine mass ratio 16 mg/mg Invalid Interpretation Code 6-20 [facility] Otheron 09-21-2016 Cholesterol in VLDL mass conc 68.0 mg/dL Invalid Interpretation Code 0-39 [facility] Cholesterol.total/C holesterol in HDL mass ratio 6 {ratio} Invalid Interpretation Code [facility] 157 [facility] 48.0 U/L 0-50 [facility] 157.0 mg/dL Invalid Interpretation Code [facility] - Chemistry and C hemistry - challengeon 07-27-2016 Bilirubin Ql (U) Negative Invalid Interpretation Code Negative [facility] Urobilinogen (U) [Mass/Vol] normal Invalid Interpretation Code normal [facility] - Hematology and Cell countson 07-27-2016 Hemoglobin Ql (U) Negative Invalid Interpretation Code Negative [facility] - Urinalysison Leukocyte esterase Test strip Ql (U) Negative Invalid Interpretation Code Negative [facility] Nitrite Ql (U) Negative Invalid Interpretation Code Negative [facility] Protein Ql (U) Negative Invalid Interpretation Code Negative [facility] Metabolic Panelon 07-27-2016 Anion gap molar conc 19 mmol/L Invalid Interpretation Code 10-20 [facility] Calcium mass conc 9.90 mg/dL Invalid Interpretation Code 8.5-10.8 [facility] Chloride molar conc 96 mmol/L Invalid Interpretation Code 100-112 [facility] CO2 molar conc 29 mmol/L Invalid Interpretation Code 23-30 [facility] Creatinine mass conc 1.10 mg/dL Invalid Interpretation Code 0.5-1.5 [facility] GFR/1.73 sq M predicted among non-blacks MDRD vol rate/area (S/P/Bld) 70 mL/min/{1.73_m2} Invalid Interpretation Code [facility] Glucose mass conc 166.0 mg/dL Invalid Interpretation Code 80-117 [facility] Hemoglobin A1c/Hemoglobin.tota l mass fraction (Bld) 7.50 % Invalid Interpretation Code 4.3-6.3 [facility] Potassium molar conc 3.9 mmol/L Invalid Interpretation Code 3.5-5.3 [facility] Sodium molar conc 140 mmol/L Invalid Interpretation Code 135-148 [facility] Urea nitrogen mass conc 14.0 mg/dL Invalid Interpretation Code 7-25 [facility] Urea nitrogen/Creatinine mass ratio 13 mg/mg Invalid Interpretation Code 6-20 [facility] Otheron 07-27-2016 Albumin mass conc (U) < 12.0 Invalid Interpretation Code < 17.0 ug/mL [facility] Bilirubin Ql (U) Negative Negative [facility] Glucose Test strip mass conc (U) 4+ Invalid Interpretation Code Negative [facility] Hemoglobin Ql (U) Negative Negative [facility] Nitrite Ql (U) Negative Negative [facility] pH (U) 5 [pH] Invalid Interpretation Code 4.5-7.8 [facility] Protein Ql (U) Negative Negative [facility] Urobilinogen Test strip mass conc (U) normal normal [facility] 169 [facility] 169.0 mg/dL Invalid Interpretation Code [facility] Thyroidon 07-27-2016 T4 mass conc 5.55 ug/dL Invalid Interpretation Code 5.00-12.00 [facility] Thyrotropin Qn 2.71 m[IU]/L Invalid Interpretation Code 0.50-4.00 [facility] Urinalysison 07-27-2016 Clarity Nom (U) clear Invalid Interpretation Code Clear [facility] Color Nom (U) yellow Invalid Interpretation Code yellow [facility] Creatinine mass conc (U) 85.80 mg/dL Invalid Interpretation Code Not Estab. mg/dL [facility] Ketones Ql (U) 1+ Invalid Interpretation Code Negative [facility] Leukocyte esterase Test strip Ql (U) Negative Negative [facility] Specific gravity Relative Density (U) 1.015 Invalid Interpretation Code 1.003-1.029 [facility] - Chemistry and C hemistry - challengeon 03-04-2016 Bilirubin Ql (U) Negative Invalid Interpretation Code Negative [facility] Ketones Ql (U) Negative Invalid Interpretation Code Negative [facility] Urobilinogen (U) [Mass/Vol] normal Invalid Interpretation Code normal [facility] - Hematology and Cell countson 03-04-2016 Hemoglobin Ql (U) Negative Invalid Interpretation Code Negative [facility] - Urinalysison Leukocyte esterase Test strip Ql (U) Negative Invalid Interpretation Code Negative [facility] Nitrite Ql (U) Negative Invalid Interpretation Code Negative [facility] Protein Ql (U) Negative Invalid Interpretation Code Negative [facility] Metabolic Panelon 03-04-2016 Anion gap molar conc 16 mmol/L Invalid Interpretation Code 10-20 [facility] Calcium mass conc 10.30 mg/dL Invalid Interpretation Code 8.5-10.8 [facility] Chloride molar conc 99 mmol/L Invalid Interpretation Code 100-112 [facility] CO2 molar conc 30 mmol/L Invalid Interpretation Code 23-30 [facility] Creatinine mass conc 1.0 mg/dL Invalid Interpretation Code 0.5-1.5 [facility] GFR/1.73 sq M predicted among non-blacks MDRD vol rate/area (S/P/Bld) 79 mL/min/{1.73_m2} Invalid Interpretation Code [facility] Glucose mass conc 190.0 mg/dL Invalid Interpretation Code 80-117 [facility] Hemoglobin A1c/Hemoglobin.tota l mass fraction (Bld) 6.70 % Invalid Interpretation Code 4.3-6.3 [facility] Potassium molar conc 4.1 mmol/L Invalid Interpretation Code 3.5-5.3 [facility] Sodium molar conc 141 mmol/L Invalid Interpretation Code 135-148 [facility] Urea nitrogen mass conc 12.0 mg/dL Invalid Interpretation Code 7-25 [facility] Urea nitrogen/Creatinine mass ratio 12 mg/mg Invalid Interpretation Code 6-20 [facility] Otheron 03-04-2016 Bilirubin Ql (U) Negative Negative [facility] Glucose Test strip mass conc (U) 4+ Invalid Interpretation Code Negative [facility] Hemoglobin Ql (U) Negative Negative [facility] Nitrite Ql (U) Negative Negative [facility] pH (U) 6 [pH] Invalid Interpretation Code 4.5-7.8 [facility] Protein Ql (U) Negative Negative [facility] Test strip mass conc (U) normal normal [facility] 146 [facility] 146.0 mg/dL Invalid Interpretation Code [facility] Urinalysison 03-04-2016 Clarity Nom (U) clear Invalid Interpretation Code Clear [facility] Color Nom (U) yellow Invalid Interpretation Code yellow [facility] Ketones Ql (U) Negative Negative [facility] Leukocyte esterase Test strip Ql (U) Negative Negative [facility] Specific gravity Relative Density (U) 1.015 Invalid Interpretation Code 1.003-1.029 [facility] - Chemistry and C hemistry - challengeon 11-26-2015 Bilirubin Ql (U) Negative Invalid Interpretation Code Negative [facility] Urobilinogen (U) [Mass/Vol] normal Invalid Interpretation Code normal [facility] - Hematology and Cell countson 11-26-2015 Hemoglobin Ql (U) Negative Invalid Interpretation Code Negative [facility] - Urinalysison Leukocyte esterase Test strip Ql (U) Negative Invalid Interpretation Code Negative [facility] Nitrite Ql (U) Negative Invalid Interpretation Code Negative [facility] Protein Ql (U) Negative Invalid Interpretation Code Negative [facility] Metabolic Panelon 11-26-2015 Glucose mass conc 220.0 mg/dL Invalid Interpretation Code 80-117 [facility] Hemoglobin A1c/Hemoglobin.tota l mass fraction (Bld) 9.70 % Invalid Interpretation Code 4.3-6.3 [facility] Otheron 11-26-2015 Albumin mass conc (U) < 12.0 Invalid Interpretation Code < 4.0-17.0 [facility] Bilirubin Ql (U) Negative Negative [facility] Glucose Test strip mass conc (U) 4+ Invalid Interpretation Code Negative [facility] Hemoglobin Ql (U) Negative Negative [facility] Nitrite Ql (U) Negative Negative [facility] pH (U) 6 [pH] Invalid Interpretation Code 4.5-7.8 [facility] Protein Ql (U) Negative Negative [facility] Urobilinogen Test strip mass conc (U) normal normal [facility] 232 [facility] 232.0 mg/dL Invalid Interpretation Code [facility] Thyroidon 11-26-2015 T4 mass conc 5.77 ug/dL Invalid Interpretation Code 5.00-12.00 [facility] Thyrotropin Qn 2.60 m[IU]/L Invalid Interpretation Code 0.50-4.00 [facility] Urinalysison 11-26-2015 Clarity Nom (U) clear Invalid Interpretation Code Clear [facility] Color Nom (U) yellow Invalid Interpretation Code yellow [facility] Creatinine mass conc (U) 66.20 mg/dL Invalid Interpretation Code Not Estab. mg/dL [facility] Ketones Ql (U) 2+ Invalid Interpretation Code Negative [facility] Leukocyte esterase Test strip Ql (U) Negative Negative [facility] Specific gravity Relative Density (U) 1.010 Invalid Interpretation Code 1.003-1.029 [facility] Laboratory - Chemistry and C hemistry - challengeon 11-07-2015 Cortisol [Mass/Vol] ug/dL Invalid Interpretation Code 3.1-22.4 [facility] Otheron 11-07-2015 Cortisol mass conc ug/dL 3.1-22.4 [facility] Laboratory - Chemistry and C hemistry - challengeon 10-29-2015 Bilirubin Ql (U) Negative Invalid Interpretation Code Negative [facility] Urobilinogen (U) [Mass/Vol] normal Invalid Interpretation Code normal [facility] - Hematology and Cell countson 10-29-2015 Hemoglobin Ql (U) Negative Invalid Interpretation Code Negative [facility] - Urinalysison Leukocyte esterase Test strip Ql (U) Negative Invalid Interpretation Code Negative [facility] Nitrite Ql (U) Negative Invalid Interpretation Code Negative [facility] Protein Ql (U) Negative Invalid Interpretation Code Negative [facility] Metabolic Panelon 10-29-2015 Anion gap molar conc 20 mmol/L Invalid Interpretation Code 10-20 [facility] Calcium mass conc 9.70 mg/dL Invalid Interpretation Code 8.5-10.8 [facility] Chloride molar conc 96 mmol/L Invalid Interpretation Code 100-112 [facility] CO2 molar conc 27 mmol/L Invalid Interpretation Code 23-30 [facility] Creatinine mass conc 0.80 mg/dL Invalid Interpretation Code 0.5-1.5 [facility] GFR/1.73 sq M predicted among non-blacks MDRD vol rate/area (S/P/Bld) 102 mL/min/{1.73_m2} Invalid Interpretation Code [facility] Glucose mass conc 286.0 mg/dL Invalid Interpretation Code 80-117 [facility] Hemoglobin A1c/Hemoglobin.tota l mass fraction (Bld) 12.60 % Invalid Interpretation Code 4.3-6.3 [facility] Potassium molar conc 3.6 mmol/L Invalid Interpretation Code 3.5-5.3 [facility] Sodium molar conc 139 mmol/L Invalid Interpretation Code 135-148 [facility] Urea nitrogen mass conc 11.0 mg/dL Invalid Interpretation Code 7-25 [facility] Urea nitrogen/Creatinine mass ratio 14 mg/mg Invalid Interpretation Code 6-20 [facility] Otheron 10-29-2015 Albumin mass conc (U) 25.9 Invalid Interpretation Code 0.0-17.0 [facility] Bilirubin Ql (U) Negative Negative [facility] Glucose Test strip mass conc (U) 4+ Invalid Interpretation Code Negative [facility] Hemoglobin Ql (U) Negative Negative [facility] Nitrite Ql (U) Negative Negative [facility] pH (U) 5 [pH] Invalid Interpretation Code 4.5-7.8 [facility] Protein Ql (U) Negative Negative [facility] U[facility] Test strip mass conc (U) normal normal [facility] 315 [facility] 315.0 mg/dL Invalid Interpretation Code [facility] Urinalysison 10-29-2015 Albumin/Creatinine DL <= 20 mg/L mass ratio (U) 14.7 mg/g Invalid Interpretation Code 0.0-30.0 [facility] Clarity Nom (U) clear Invalid Interpretation Code Clear [facility] Color Nom (U) yellow Invalid Interpretation Code yellow [facility] Creatinine mass conc (U) 175.60 mg/dL Invalid Interpretation Code Not Estab. mg/dL [facility] Ketones Ql (U) 3+ Invalid Interpretation Code Negative [facility] Leukocyte esterase Test strip Ql (U) Negative Negative [facility] Specific gravity Relative Density (U) 1.020 Invalid Interpretation Code 1.003-1.029 [facility] - Chemistry and C hemistry - challengeon 10-03-2015 Bilirubin Ql (U) Negative Invalid Interpretation Code Negative [facility] Urobilinogen (U) [Mass/Vol] normal Invalid Interpretation Code normal [facility] - Hematology and Cell countson 10-03-2015 Hemoglobin Ql (U) Negative Invalid Interpretation Code Negative [facility] - Urinalysison Leukocyte esterase Test strip Ql (U) Negative Invalid Interpretation Code Negative [facility] Nitrite Ql (U) Negative Invalid Interpretation Code Negative [facility] Protein Ql (U) Negative Invalid Interpretation Code Negative [facility] Metabolic Panelon 10-03-2015 Anion gap molar conc 24 mmol/L Invalid Interpretation Code 10-20 [facility] Calcium mass conc 9.30 mg/dL Invalid Interpretation Code 8.5-10.8 [facility] Chloride molar conc 93 mmol/L Invalid Interpretation Code 100-112 [facility] CO2 molar conc 23 mmol/L Invalid Interpretation Code 23-30 [facility] Creatinine mass conc 0.90 mg/dL Invalid Interpretation Code 0.5-1.5 [facility] GFR/1.73 sq M predicted among non-blacks MDRD vol rate/area (S/P/Bld) 89 mL/min/{1.73_m2} Invalid Interpretation Code [facility] Glucose mass conc 491.0 mg/dL Invalid Interpretation Code 80-117 [facility] Potassium molar conc 4.0 mmol/L Invalid Interpretation Code 3.5-5.3 [facility] Sodium molar conc 136 mmol/L Invalid Interpretation Code 135-148 [facility] Urea nitrogen mass conc 13.0 mg/dL Invalid Interpretation Code 7-25 [facility] Urea nitrogen/Creatinine mass ratio 14 mg/mg Invalid Interpretation Code 6-20 [facility] Otheron 10-03-2015 Bilirubin Ql (U) Negative Negative [facility] C peptide mass conc 5.0 Invalid Interpretation Code 1.1-4.4 [facility] Cortisol mass conc 4.0 ug/dL Invalid Interpretation Code 3.1-22.4 [facility] Glucose Test strip mass conc (U) 4+ Invalid Interpretation Code Negative [facility]l (U) [facility] Nitrite Ql (U) Negative Negative [facility] pH (U) 5 [pH] Invalid Interpretation Code 4.5-7.8 [facility] Protein Ql (U) Negative Negative [facility] Urobilinogen Test strip mass conc (U) normal normal [facility] See Above Invalid Interpretation Code 0-0 [facility] Urinalysison 10-03-2015 Clarity Nom (U) clear Invalid Interpretation Code Clear [facility] Color Nom (U) yellow Invalid Interpretation Code yellow [facility] Ketones Ql (U) 1+ Invalid Interpretation Code Negative [facility] Leukocyte esterase Test strip Ql (U) Negative Negative [facility] Specific gravity Relative Density (U) 1.005 Invalid Interpretation Code 1.003-1.029 [facility] Hematologyon 08-26-2015 Basophils #/vol (Bld) 0.10 10*3/uL Invalid Interpretation Code 0.0-0.1 [facility] Basophils/100 WBC (Bld) 0.70 % Invalid Interpretation Code 0.0-1.0 [facility] Eosinophils #/vol (Bld) 0.30 10*3/uL Invalid Interpretation Code 0.0-0.5 [facility] Eosinophils/100 WBC (Bld) 3.10 % Invalid Interpretation Code 0.0-7.0 [facility] ESR Velocity (Bld) 31 mm/h Invalid Interpretation Code 0-15 [facility] Hematocrit Volume Fraction (Bld) 39.50 % Invalid Interpretation Code 37.8-51.0 [facility] Hemoglobin mass conc (Bld) 13.10 g/dL Invalid Interpretation Code 12.6-17.0 [facility] Lymphocytes #/vol (Bld) 2.10 10*3/uL Invalid Interpretation Code 0.9-3.1 [facility] Lymphocytes/100 WBC (Bld) 21.80 % Invalid Interpretation Code 15.0-46.0 [facility] MCH Entitic mass (RBC) 31.50 pg Invalid Interpretation Code 25.7-33.8 [facility] MCV Entitic volume (RBC) 94.60 fL Invalid Interpretation Code 82.0-98.4 [facility] Monocytes #/vol (Bld) 0.70 10*3/uL Invalid Interpretation Code 0.3-1.0 [facility] Monocytes/100 WBC (Bld) 7.20 % Invalid Interpretation Code 4.0-12.0 [facility] Neutrophils #/vol (Bld) 6.20 10*3/uL Invalid Interpretation Code 1.8-7.9 [facility] Neutrophils/100 WBC (Bld) 67.20 % Invalid Interpretation Code 43.0-76.0 [facility] Platelets #/vol (Bld) 228.0 10*3/uL Invalid Interpretation Code 150-400 [facility] RBC #/vol (Bld) 4.180 10*6/uL Invalid Interpretation Code 4.34-5.61 [facility] WBC #/vol (Bld) 9.40 10*3/uL Invalid Interpretation Code 3.9-10.3 [facility] Metabolic Panelon 08-26-2015 Protein mass conc g/dL CLASS 0 [facility] Otheron 08-26-2015 Erythrocyte distribution width Ratio (RBC) 12.20 % Invalid Interpretation Code 11.5-15.5 [facility] Immune complex IgE Qn 14 Invalid Interpretation Code 0-100 [facility] MCHC mass conc (RBC) 33.30 g/dL Invalid Interpretation Code 32.0-36.0 [facility] Platelet mean volume Entitic volume (Bld) 8.50 fL Invalid Interpretation Code 7.4-10.4 [facility] <0.10 Invalid Interpretation Code CLASS 0 [facility] COMMENT Invalid Interpretation Code [facility]acon 08-05-2015 Cholesterol in HDL mass conc 60.0 mg/dL Invalid Interpretation Code 36-100 [facility] Cholesterol in LDL mass conc 58.0 mg/dL Invalid Interpretation Code 0-130 [facility] Cholesterol mass conc 150.0 mg/dL Invalid Interpretation Code 0-200 [facility] Triglyceride mass conc 160.0 mg/dL Invalid Interpretation Code 30-150 [facility] Metabolic Panelon 08-05-2015 ALT enzyme act/vol 64.0 U/L Invalid Interpretation Code 0-50 [facility] Anion gap molar conc 18 mmol/L Invalid Interpretation Code 10-20 [facility] AST enzyme act/vol 39.0 U/L Invalid Interpretation Code 0-40 [facility] Calcium mass conc 9.70 mg/dL Invalid Interpretation Code 8.5-10.8 [facility] Chloride molar conc 92 mmol/L Invalid Interpretation Code 100-112 [facility] CO2 molar conc 26 mmol/L Invalid Interpretation Code 23-30 [facility] Creatinine mass conc 1.70 mg/dL Invalid Interpretation Code 0.5-1.5 [facility] GFR/1.73 sq M predicted among non-blacks MDRD vol rate/area (S/P/Bld) 43 mL/min/{1.73_m2} Invalid Interpretation Code [facility] Glucose mass conc 199.0 mg/dL Invalid Interpretation Code 80-117 [facility] Hemoglobin A1c/Hemoglobin.tota l mass fraction (Bld) 8.90 % Invalid Interpretation Code 4.3-6.3 [facility] Potassium molar conc 4.3 mmol/L Invalid Interpretation Code 3.5-5.3 [facility] Sodium molar conc 132 mmol/L Invalid Interpretation Code 135-148 [facility] Urea nitrogen mass conc 24.0 mg/dL Invalid Interpretation Code 7-25 [facility] Urea nitrogen/Creatinine mass ratio 14 mg/mg Invalid Interpretation Code 6-20 [facility] Otheron 08-05-2015 Albumin mass conc (U) < 12.0 Invalid Interpretation Code < 4.0-17.0 [facility] Cholesterol in VLDL mass conc 32.0 mg/dL Invalid Interpretation Code 0-39 [facility] Cholesterol.total/C holesterol in HDL mass ratio 3 {ratio} Invalid Interpretation Code [facility] 209 [facility] 209.0 mg/dL Invalid Interpretation Code [facility] 64.0 U/L 0-50 [facility] Urinalysison 08-05-2015 Creatinine mass conc (U) 186.0 mg/dL Invalid Interpretation Code Not Estab. mg/dL [facility] Vital Signs Date Time Vital Sign Value Performing Clinician Facility 04-08-2025 14:02-0400 Body height 180.3 cm Kimmie Yarbrough MD Work Phone: [facility] 04-08-2025 14:02-0400 Body mass index (BMI) [Ratio] 34.73 kg/m2 Kimmie Yarbrough MD Work Phone: [facility] 04-08-2025 14:02-0400 Body weight 112.95 kg Kimmie Yarbrough MD Work Phone: [facility] 04-08-2025 14:02-0400 Heart rate 95 /min Kimmie Yarbrough MD Work Phone: [facility] 04-08-2025 14:02-0400 Respiratory rate 18 /min Kimmie Yarbrough MD Work Phone: [facility] 04-08-2025 14:02-0400 SaO2% (BldA) [Mass fraction] 98 % Kimmie Yarbrough MD Work Phone: [facility] 12-31-2024 17:48-0400 Body weight 113.4 kg [facility] 12-31-2024 17:48-0400 Diastolic blood pressure 80 mm[Hg] [facility] 12-31-2024 17:48-0400 Heart rate 76 /min [facility] 12-31-2024 17:48-0400 Systolic blood pressure 138 mm[Hg] [facility] 12-25-2024 14:52-0400 Body height 177.8 cm Ericka [facility] 12-25-2024 14:52-0400 Body mass index (BMI) [Ratio] 36.16 kg/m2 [facility] [employer] 12-25-2024 14:52-0400 Body surface area Derived from formula 2.38 m2 [facility] [employer] 12-25-2024 14:52-0400 Body weight 114.31 kg Ericka [facility] [employer] 12-25-2024 14:52-0400 Diastolic blood pressure 68 mm[Hg] [facility] 12-25-2024 14:52-0400 Heart rate 86 /min [facility] [employer] 12-25-2024 14:52-0400 Systolic blood pressure 138 mm[Hg] [facility] 08-14-2024 15:21-0500 Body height 180.34 cm Ericka Muniz MD Work Phone: [facility] 08-14-2024 15:21-0500 Body mass index (BMI) [Ratio] 34.5 kg/m2 Ericka Muniz MD Work Phone: [facility] 08-14-2024 15:21-0500 Body weight 112.49 kg Ericka Muniz MD Work Phone: [facility] 08-14-2024 15:21-0500 Diastolic blood pressure 90 mm[Hg] Ericka Muniz MD Work Phone: [facility] 08-14-2024 15:21-0500 Heart rate 103 /min Ericka Muniz MD Work Phone: [facility] 08-14-2024 15:21-0500 Respiratory rate 20 /min Ericka Muniz MD Work Phone: [facility] 08-14-2024 15:21-0500 SaO2% (BldA) [Mass fraction] 97 % Ericka Muniz MD Work Phone: [facility] 08-14-2024 15:21-0500 Systolic blood pressure 137 mm[Hg] Ericka Muniz MD Work Phone: [facility] 04-26-2024 17:02-0400 Body weight 113.85 kg [facility] 04-26-2024 17:02-0400 Diastolic blood pressure 80 mm[Hg] [facility] 04-26-2024 17:02-0400 Heart rate 78 /min [facility] 04-26-2024 17:02-0400 Systolic blood pressure 122 mm[Hg] [facility] 03-21-2024 14:06-0400 Body height 179.07 cm Ericka Muniz [facility] 03-21-2024 14:06-0400 Body mass index (BMI) [Ratio] 34.52 kg/m2 Ericka Muniz [facility] 03-21-2024 14:06-0400 Body surface area Derived from formula 2.35 m2 Ericka Muniz [facility] 03-21-2024 14:06-0400 Body weight 110.68 kg Ericka Muniz [facility] 03-21-2024 14:06-0400 Diastolic blood pressure 76 mm[Hg] Ericka Muniz [facility] 03-21-2024 14:06-0400 Heart rate 72 /min Ericka Muniz [facility] 03-21-2024 14:06-0400 Systolic blood pressure 136 mm[Hg] Ericka Muniz [facility] 12-14-2023 15:17-0400 Body height 180.34 cm [facility] [employer]ARE MANAGEMENTDouglas Flores Alexsandra Work Phone: [facility] 12-14-2023 15:17-0400 Body temperature 97.6 [degF] [employer] Mark Alexsandra Work Phone: [facility] 12-14-2023 15:17-0400 Body weight 108.3 kg [employer] Mark Alexsandra Work Phone: [facility] 12-14-2023 15:17-0400 Diastolic blood pressure 87 mm[Hg] [employer] Mark Alexsandra Work Phone: [facility] 12-14-2023 15:17-0400 Heart rate 97 /min [employer] Mark Alexsandra Work Phone: [facility] 12-14-2023 15:17-0400 Respiratory rate 18 /min [employer] Mark Alexsandra Work Phone: [facility] 12-14-2023 15:17-0400 SaO2% (BldA) [Mass fraction] 95 % [employer] Mark Alexsandra Work Phone: [facility] 12-14-2023 15:17-0400 Systolic blood pressure 158 mm[Hg] [employer]NAG[employer] Mark Alexsandra Work Phone: [facility] 12-03-2023 16:32-0400 Body height 180.34 cm [employer] Mark Alexsandra Work Phone: [facility] 12-03-2023 16:32-0400 Body temperature 97.9 [degF] [employer] Mark Alexsandra Work Phone: [facility] 12-03-2023 16:32-0400 Body weight 111.25 kg [employer] Mark Alexsandra Work Phone: [facility] 12-03-2023 16:32-0400 Diastolic blood pressure 79 mm[Hg] [employer]NAG[employer] Mark Alexsandra Work Phone: [facility] 12-03-2023 16:32-0400 Heart rate 98 /min [employer] Mark Alexsandra Work Phone: [facility] 12-03-2023 16:32-0400 Respiratory rate 17 /min [employer] Mark Alexsandra Work Phone: [facility] 12-03-2023 16:32-0400 SaO2% (BldA) [Mass fraction] 95 % [employer] Mark Alexsandra Work Phone: [facility] 12-03-2023 16:32-0400 Systolic blood pressure 159 mm[Hg] [employer]NAGEMENT Mark Alexsandra Work Phone: [facility] 11-14-2023 14:24-0400 Body height 179.07 cm Ericka [facility] 11-14-2023 14:24-0400 Diastolic blood pressure 84 mm[Hg] Ericka [employer] 11-14-2023 14:24-0400 Systolic blood pressure 118 mm[Hg] Ericka [employer] 11-14-2023 13:14-0400 Body weight 109.77 kg Ericka [employer] 11-14-2023 13:14-0400 Diastolic blood pressure 80 mm[Hg] Ericka [employer] [facility] 11-14-2023 13:14-0400 Heart rate 76 /min Ericka [employer] 11-14-2023 13:14-0400 Systolic blood pressure 170 mm[Hg] Ericka [employer] 01-25-2023 16:12-0400 Body height 180.34 cm Ericka [employer] 01-25-2023 16:12-0400 Body mass index (BMI) [Ratio] 33.19 kg/m2 Ericka [employer] 01-25-2023 16:12-0400 Body surface area Derived from formula 2.33 m2 Ericka [employer] [facility] 01-25-2023 16:12-0400 Body weight 107.96 kg Ericka [employer] 01-25-2023 16:12-0400 Diastolic blood pressure 72 mm[Hg] Ericka [employer] 01-25-2023 16:12-0400 Heart rate 90 /min Ericka [employer] [facility] 01-25-2023 16:12-0400 Systolic blood pressure 128 mm[Hg] Ericka [employer] 07-27-2022 16:23-0500 Body height 180.34 cm Edilberto [facility] 07-27-2022 16:23-0500 Body mass index (BMI) [Ratio] 33.33 kg/m2 Edilberto [facility] 07-27-2022 16:23-0500 Body surface area Derived from formula 2.33 m2 Edilberto [employer] 07-27-2022 16:23-0500 Body weight 108.41 kg Edilberto [employer] 07-27-2022 16:23-0500 Body weight 0.1 {percentile} Edilberto [facility] 07-27-2022 16:23-0500 Diastolic blood pressure 68 mm[Hg] Edilberto [employer] 07-27-2022 16:23-0500 Heart rate 100 /min Edilberto [facility] 07-27-2022 16:23-0500 Systolic blood pressure 110 mm[Hg] Edilberto [facility] 05-27-2022 14:45-0500 Body height 182.[address] [facility] 05-27-2022 14:45-0500 Body mass index (BMI) [Ratio] 24.4 kg/m2 [facility] 05-27-2022 14:45-0500 Body weight 81.[address] [facility] 05-27-2022 14:39-0500 Body temperature 97.7 [degF] [facility] 05-27-2022 14:39-0500 Diastolic blood pressure 78 mm[Hg] [facility] 05-27-2022 14:39-0500 Heart rate 90 /min [facility] 05-27-2022 14:39-0500 Respiratory rate 20 /min [facility] 05-27-2022 14:39-0500 Systolic blood pressure 153 mm[Hg] [facility] 05-05-2022 14:50-0400 Body height 182.[address] [facility] 05-05-2022 14:50-0400 Body mass index (BMI) [Ratio] 24.4 kg/m2 [facility] 05-05-2022 14:50-0400 Body weight 81.[address] [facility] 05-05-2022 14:36-0400 Body temperature 97.9 [degF] [facility] 05-05-2022 14:36-0400 Diastolic blood pressure 82 mm[Hg] [facility] 05-05-2022 14:36-0400 Heart rate 106 /min [facility] 05-05-2022 14:36-0400 Respiratory rate 18 /min [facility] 05-05-2022 14:36-0400 Systolic blood pressure 153 mm[Hg] [facility] 04-14-2022 14:46-0400 Body height 182.[address] [facility] 04-14-2022 14:46-0400 Body mass index (BMI) [Ratio] 24.4 kg/m2 [facility] 04-14-2022 14:46-0400 Body weight 81.[address] [facility] 04-14-2022 14:14-0400 Body temperature 98.6 [degF] [facility] 04-14-2022 14:14-0400 Diastolic blood pressure 98 mm[Hg] [facility] 04-14-2022 14:14-0400 Heart rate 112 /min [facility] 04-14-2022 14:14-0400 Respiratory rate 18 /min [facility] 04-14-2022 14:14-0400 Systolic blood pressure 168 mm[Hg] [facility] 04-01-2022 18:08-0400 Body height 182.[address] [facility] 04-01-2022 18:08-0400 Body temperature 98.5 [degF] [facility] 04-01-2022 18:08-0400 Body weight 108.[address] [facility] 04-01-2022 18:08-0400 Diastolic blood pressure 89 mm[Hg] [facility] 04-01-2022 18:08-0400 Heart rate 112 /min [facility] 04-01-2022 18:08-0400 Respiratory rate 20 /min [facility] 04-01-2022 18:08-0400 SaO2% (BldA) [Mass fraction] 97 % [facility] 04-01-2022 18:08-0400 Systolic blood pressure 143 mm[Hg] [facility] 02-17-2022 15:25-0400 Body height 180.34 cm [facility] [employer] 02-17-2022 15:25-0400 Body mass index (BMI) [Ratio] 33.75 kg/m2 [facility] [employer] 02-17-2022 15:25-0400 Body surface area Derived from formula 2.35 m2 [employer] 02-17-2022 15:25-0400 Body surface area Derived from formula 2.34 m2 [employer] 02-17-2022 15:25-0400 Body weight 109.77 kg [facility] [employer] 02-17-2022 15:25-0400 Diastolic blood pressure 72 mm[Hg] [employer] 02-17-2022 15:25-0400 Heart rate 84 /min [employer] [employer] 02-17-2022 15:25-0400 Systolic blood pressure 126 mm[Hg] [employer] [employer] 02-17-2022 14:30-0400 Body height 180.34 cm Ericka [employer] 02-17-2022 14:30-0400 Body mass index (BMI) [Ratio] 33.75 kg/m2 Ericka [employer] 02-17-2022 14:30-0400 Body surface area Derived from formula 2.35 m2 Ericka [employer] 02-17-2022 14:30-0400 Body surface area Derived from formula 2.34 m2 Ericka [employer] [facility] 02-17-2022 14:30-0400 Body weight 109.77 kg Ericka [employer] [facility] 02-17-2022 14:30-0400 Diastolic blood pressure 76 mm[Hg] Ericka [employer] 02-17-2022 14:30-0400 Heart rate 88 /min Ericka [employer] 02-17-2022 14:30-0400 Systolic blood pressure 124 mm[Hg] Ericka [employer] [facility] 01-15-2022 13:42-0400 Body height 180.34 cm Edilberto [employer] [facility] 01-15-2022 13:42-0400 Body mass index (BMI) [Ratio] 33.47 kg/m2 Edilberto [employer] [facility] 01-15-2022 13:42-0400 Body surface area Derived from formula 2.34 m2 Edilberto [employer] [facility] 01-15-2022 13:42-0400 Body weight 108.86 kg Edilberto [facility] 01-15-2022 13:42-0400 Diastolic blood pressure 82 mm[Hg] Edilberto [facility] 01-15-2022 13:42-0400 Heart rate 84 /min Edilberto [facility] 01-15-2022 13:42-0400 Systolic blood pressure 132 mm[Hg] Edilberto [employer] [facility] 10-20-2021 16:47-0400 Body height 180.34 cm Franky Turpin [employer] [facility] 10-20-2021 16:47-0400 Body mass index (BMI) [Ratio] 34.03 kg/m2 Franky [facility] [employer] [facility] 10-20-2021 16:47-0400 Body surface area Derived from formula 2.35 m2 Franky [facility] [employer] [facility] 10-20-2021 16:47-0400 Body weight 110.68 kg Franky [employer] [place] [employer] [facility] 10-20-2021 16:47-0400 Diastolic blood pressure 78 mm[Hg] Franky [employer] [place] [employer] [facility] 10-20-2021 16:47-0400 Heart rate 88 /min Franky [employer] [place] [employer] [facility] 10-20-2021 16:47-0400 Systolic blood pressure 122 mm[Hg] Franky Turpin [facility] 09-17-2021 16:22-0500 Body height 180.34 cm [facility] [employer] 09-17-2021 16:22-0500 Body mass index (BMI) [Ratio] 34.17 kg/m2 Franky Dyana [place] [employer] [facility] 09-17-2021 16:22-0500 Body surface area Derived from formula 2.36 m2 Franky Dyana [employer] 09-17-2021 16:22-0500 Body weight 111.13 kg Franky Dyana [employer] 09-17-2021 16:22-0500 Diastolic blood pressure 78 mm[Hg] Franky Turpin [employer] 09-17-2021 16:22-0500 Heart rate 84 /min Franky Frazier[employer] [facility] 09-17-2021 16:22-0500 Systolic blood pressure 142 mm[Hg] Franky Turpin [employer] [facility] 09-03-2021 14:40-0500 Body height 180.34 cm Edilberto [facility] 09-03-2021 14:40-0500 Body mass index (BMI) [Ratio] 35.15 kg/m2 Edilberto [facility] 09-03-2021 14:40-0500 Body surface area Derived from formula 2.39 m2 Edilberto [facility] 09-03-2021 14:40-0500 Body weight 114.31 kg Edilberto [employer] 09-03-2021 14:40-0500 Diastolic blood pressure 74 mm[Hg] Edilberto [employer] 09-03-2021 14:40-0500 Heart rate 84 /min Edilberto [facility] 09-03-2021 14:40-0500 Systolic blood pressure 136 mm[Hg] Edilberto [employer] 03-19-2021 14:33-0400 Body height 181.61 cm Edilberto [employer] 03-19-2021 14:33-0400 Body mass index (BMI) [Ratio] 33.49 kg/m2 Edilberto [employer] 03-19-2021 14:33-0400 Body surface area Derived from formula 2.36 m2 Edilberto [facility] 03-19-2021 14:33-0400 Body weight 110.45 kg Edilberto [employer] 03-19-2021 14:33-0400 Diastolic blood pressure 80 mm[Hg] Edilberto [facility] 03-19-2021 14:33-0400 Heart rate 88 /min Edilberto [facility] 03-19-2021 14:33-0400 Systolic blood pressure 126 mm[Hg] Edilberto [employer] 12-23-2020 13:35-0400 Body height 181.61 cm Ericka [employer] 12-23-2020 13:35-0400 Body mass index (BMI) [Ratio] 33.01 kg/m2 Ericka [employer] 12-23-2020 13:35-0400 Body surface area Derived from formula 2.34 m2 Ericka [employer] 12-23-2020 13:35-0400 Body weight 108.86 kg Ericka [employer] 12-23-2020 13:35-0400 Diastolic blood pressure 86 mm[Hg] Ericka [employer] [facility] 12-23-2020 13:35-0400 Heart rate 83 /min Ericka [employer] 12-23-2020 13:35-0400 Systolic blood pressure 126 mm[Hg] Ericka [employer] 09-09-2020 15:15-0500 BMI (Body Mass Index) 33.56 kg/m2 Edilberto Point[facility] 09-09-2020 15:15-0500 Body weight 110.68 kg Edilberto Zamora [employer] [facility] 09-09-2020 15:15-0500 BP Diastolic 74 mm[Hg] Edilberto Zamora [employer] 09-09-2020 15:15-0500 BP Systolic 130 mm[Hg] Edilberto Jara5 O'Clock RecordsMonroeCellAegis Devices [facility] 09-09-2020 15:15-0500 BSA (Body Surface Area) 2.36 m2 Edilberto [place] [employer] 09-09-2020 15:15-0500 Height 181.61 cm Edilberto [place] [employer] 09-09-2020 15:15-0500 Pulse (Heart Rate) 104 /min Edilberto Zamora [facility] [employer] [facility] 04-08-2020 17:01-0400 BMI (Body Mass Index) 33.46 kg/m2 Edilberto [employer] provincesncCell[employer] [facility] 04-08-2020 17:01-0400 Body weight 110.37 kg Edilberto [place] provinces[employer] 04-08-2020 17:01-0400 BP Diastolic 78 mm[Hg] Edilberto Jara5 O'Clock RecordsMonroeCellAegis [employer] [facility] 04-08-2020 17:01-0400 BP Systolic 120 mm[Hg] Edilberto [employer] provincesncCell[employer] [facility] 04-08-2020 17:01-0400 BSA (Body Surface Area) 2.36 m2 Edilberto [place] [employer] 04-08-2020 17:01-0400 Height 181.61 cm Edilberto [place] [employer] 04-08-2020 17:01-0400 Pulse (Heart Rate) 78 /min Edilberto [employer] 02-21-2020 17:34-0400 BMI (Body Mass Index) 33.83 kg/m2 Ericka [employer] 02-21-2020 17:34-0400 Body Temperature 97.8 [degF] Ericka [employer] [place] 02-21-2020 17:34-0400 Body weight 111.59 kg Ericka [employer] 02-21-2020 17:34-0400 BP Diastolic 70 mm[Hg] Ericka [employer] 02-21-2020 17:34-0400 BP Systolic 132 mm[Hg] Ericka [employer] 02-21-2020 17:34-0400 BSA (Body Surface Area) 2.37 m2 Ericka [employer] 02-21-2020 17:34-0400 Height 181.61 cm Ericka [employer] 02-21-2020 17:34-0400 Pulse (Heart Rate) 88 /min Ericka Muniz [place] 12-28-2019 14:30-0400 Body Temperature 98.6 [degF] [facility], [place] 12-28-2019 14:30-0400 BP Diastolic 88 mm[Hg] [facility] , [place] 12-28-2019 14:30-0400 BP Systolic 135 mm[Hg] [facility] [place] 12-28-2019 14:30-0400 Pulse (Heart Rate) 80 /min [facility] [place] 12-28-2019 14:30-0400 Pulse Oximetry 93 % [facility] , [place] 12-28-2019 14:30-0400 Respiratory Rate 18 /min [facility] [place] 12-28-2019 08:19-0400 BMI (Body Mass Index) 33.63 kg/m2 Tess [facility], [place] 12-28-2019 08:19-0400 Body weight 112.49 kg [facility] [place] 12-28-2019 08:19-0400 Height 182.9 cm [facility] [place] 11-26-2019 17:01-0400 BMI (Body Mass Index) 34.24 kg/m2 Ericka Muniz [employer] 11-26-2019 17:01-0400 Body Temperature 98.5 [degF] [facility] [employer] [facility] 11-26-2019 17:01-0400 Body weight 112.95 kg Ericka Muniz [employer] 11-26-2019 17:01-0400 BP Diastolic 72 mm[Hg] Ericka [employer] [facility] 11-26-2019 17:01-0400 BP Systolic 116 mm[Hg] Ericka [employer] [facility] 11-26-2019 17:01-0400 BSA (Body Surface Area) 2.39 m2 Ericka [employer] 11-26-2019 17:-0400 Height 181.61 cm Ericka [employer] [facility] 11-26-2019 17:01-0400 Pulse (Heart Rate) 100 /min Ericka [employer] [facility] [employer] [facility] 08-28-2019 15:09-0500 BMI (Body Mass Index) 33.83 kg/m2 Edilberto [employer] 08-28-2019 15:09-0500 Body weight 111.59 kg Edilberto [facility] 08-28-2019 15:09-0500 BP Diastolic 80 mm[Hg] Edilberto [employer] 08-28-2019 15:09-0500 BP Systolic 126 mm[Hg] Edilberto Zamora [employer] 08-28-2019 15:09-0500 BSA (Body Surface Area) 2.37 m2 Edilberto [employer] 08-28-2019 15:09-0500 Height 181.61 cm Edilberto Point[facility] 08-28-2019 15:09-0500 Pulse (Heart Rate) 80 /min Edilberto [employer] 05-28-2019 18:11-0500 BMI (Body Mass Index) 33.51 kg/m2 Ericka [employer] 05-28-2019 18:11-0500 Body weight 111.13 kg Ericka [employer] 05-28-2019 18:11-0500 BP Diastolic 74 mm[Hg] Ericka [employer] 05-28-2019 18:11-0500 BP Systolic 124 mm[Hg] Ericka [employer] 05-28-2019 18:11-0500 BSA (Body Surface Area) 2.37 m2 Ericka [employer] 05-28-2019 18:11-0500 Height 182.12 cm Ericka [employer] 05-28-2019 18:11-0500 Pulse (Heart Rate) 80 /min Ericka Muniz [place] 04-17-2019 17:27-0400 BMI (Body Mass Index) 33.96 kg/m2 Edilberto [facility] 04-17-2019 17:27-0400 Body weight 112.95 kg Edilberto [facility] 04-17-2019 17:27-0400 BP Diastolic 86 mm[Hg] Edilberto [employer] 04-17-2019 17:27-0400 BP Systolic 122 mm[Hg] Edilberto [employer] 04-17-2019 17:27-0400 BSA (Body Surface Area) 2.39 m2 Edilberto [facility] 04-17-2019 17:27-0400 Height 182.37 cm Edilberto Point[facility] 04-17-2019 17:27-0400 Pulse (Heart Rate) 102 /min Edilberto Zamora [place] 01-25-2019 13:01-0400 BMI (Body Mass Index) 34.3 kg/m2 Ericka [employer] 01-25-2019 13:01-0400 Body weight 114.08 kg Ericka [employer] 01-25-2019 13:01-0400 BP Diastolic 92 mm[Hg] Ericka [employer] 01-25-2019 13:01-0400 BP Systolic 142 mm[Hg] Ericka [employer] 01-25-2019 13:01-0400 BSA (Body Surface Area) 2.4 m2 Ericka [employer] 01-25-2019 13:01-0400 Height 182.37 cm Ericka [employer] 01-25-2019 13:01-0400 Pulse (Heart Rate) 88 /min Ericka Muniz [place] 12-12-2018 13:49-0400 BMI (Body Mass Index) 34.5 kg/m2 Edilberto [employer] 12-12-2018 13:49-0400 Body weight 114.76 kg Ericka Muniz [employer] 12-12-2018 13:49-0400 BP Diastolic 88 mm[Hg] Edilberto Point[facility] 12-12-2018 13:49-0400 BP Systolic 148 mm[Hg] Edilberto [employer] 12-12-2018 13:49-0400 BSA (Body Surface Area) 2.41 m2 Edilberto [employer] 12-12-2018 13:49-0400 Height 182.37 cm Edilberto [employer] 12-12-2018 13:49-0400 Pulse (Heart Rate) 90 /min Edilberto [employer] 12-12-2018 13:49-0400 Weight 114.76 kg Edilberto [employer] 10-02-2018 13:45-0400 BMI (Body Mass Index) 34.38 kg/m2 Edilberto [employer] 10-02-2018 13:45-0400 Body weight 113.4 kg Ericka Muniz [employer] 10-02-2018 13:45-0400 BP Diastolic 90 mm[Hg] Edilberto [employer] 10-02-2018 13:45-0400 BP Systolic 164 mm[Hg] Edilberto [employer] 10-02-2018 13:45-0400 BSA (Body Surface Area) 2.39 m2 Edilberto [employer] 10-02-2018 13:45-0400 Height 181.61 cm Edilberto [employer] 10-02-2018 13:45-0400 Pulse (Heart Rate) 90 /min [facility]ilberto [facility] 10-02-2018 13:45-0400 Weight 113.4 kg Edilberto Point[employer] 08-30-2018 13:14-0500 BMI (Body Mass Index) 33.74 kg/m2 Edilberto [employer] 08-30-2018 13:14-0500 Body weight 111.27 kg Ericka Muniz [employer] 08-30-2018 13:14-0500 BP Diastolic 88 mm[Hg] Edilberto [employer] 08-30-2018 13:14-0500 BP Systolic 142 mm[Hg] Edilberto [employer] 08-30-2018 13:14-0500 BSA (Body Surface Area) 2.37 m2 Edilberto [employer] 08-30-2018 13:14-0500 Height 181.61 cm Edilberto Point[facility] 08-30-2018 13:14-0500 Pulse (Heart Rate) 84 /min Edilberto Simmery 08-30-2018 13:14-0500 Weight 111.27 kg Edilberto Point[employer] 06-19-2018 13:18-0500 Body weight 112.04 kg Ericka Muniz [employer] 06-19-2018 13:18-0500 BP Diastolic 80 mm[Hg] Edilberto [employer] 06-19-2018 13:18-0500 BP Systolic 138 mm[Hg] Edilberto Silveirayou[employer] 06-19-2018 13:18-0500 Pulse (Heart Rate) 70 /min Edilberto Tijer[employer] 06-19-2018 13:18-0500 Weight 112.04 kg Edilberto Zamora [employer] 03-20-2018 14:25-0400 BMI (Body Mass Index) 32.28 kg/m2 Edilberto Zamora [employer] 03-20-2018 14:25-0400 Body weight 107.96 kg Ericka Silveirayou[employer] 03-20-2018 14:25-0400 BP Diastolic 80 mm[Hg] Edilberto Zamora [employer] 03-20-2018 14:25-0400 BP Systolic 142 mm[Hg] Edilberto Zamora [employer] 03-20-2018 14:25-0400 BSA (Body Surface Area) 2.34 m2 Edilberto Zamora [employer] 03-20-2018 14:25-0400 Height 182.88 cm Edilberto Zamora [employer] 03-20-2018 14:25-0400 Pulse (Heart Rate) 78 /min Edilberto [employer] 03-20-2018 14:25-0400 Weight 107.96 kg Edilberto Zamora [employer] 03-01-2018 13:34-0400 BMI (Body Mass Index) 32.55 kg/m2 Edilberto Pointworthy 03-01-2018 13:34-0400 Body weight 108.86 kg Ericka Silveirayou[employer] 03-01-2018 13:34-0400 BP Diastolic 104 mm[Hg] Edilberto Zamora [employer] 03-01-2018 13:34-0400 BP Systolic 138 mm[Hg] Edilberto [employer] 03-01-2018 13:34-0400 BSA (Body Surface Area) 2.35 m2 Edilberto Point[employer] 03-01-2018 13:34-0400 Height 182.88 cm Edilberto Pointworthy 03-01-2018 13:34-0400 Pulse (Heart Rate) 104 /min Edilberto [facility] [employer] 03-01-2018 13:34-0400 Weight 108.86 kg Edilberto Point[employer] 12-13-2017 13:50-0400 BMI (Body Mass Index) 33.36 kg/m2 Edilberto Point[employer] 12-13-2017 13:50-0400 Body weight 111.59 kg Ericka Muniz [employer] 12-13-2017 13:50-0400 BP Diastolic 78 mm[Hg] Edilberto Point[employer] 12-13-2017 13:50-0400 BP Systolic 144 mm[Hg] Edilberto Point[employer] 12-13-2017 13:50-0400 BSA (Body Surface Area) 2.38 m2 [employer] 12-13-2017 13:50-0400 Height 182.88 cm Edilberto Pointworthy 12-13-2017 13:50-0400 Pulse (Heart Rate) 76 /min Edilberto [employer] 12-13-2017 13:50-0400 Weight 111.59 kg Edilberto Point[employer] 09-01-2017 13:48-0500 BMI (Body Mass Index) 33.09 kg/m2 Edilberto Point[employer] 09-01-2017 13:48-0500 Body weight 110.68 kg Ericka Muniz [employer] 09-01-2017 13:48-0500 BP Diastolic 92 mm[Hg] Edilberto Point[employer] 09-01-2017 13:48-0500 BP Systolic 128 mm[Hg] Edilberto Point[employer] 09-01-2017 13:48-0500 BSA (Body Surface Area) 2.37 m2 Edilberto [employer] 09-01-2017 13:48-0500 Height 182.88 cm Edilberto Point[employer] 09-01-2017 13:48-0500 Pulse (Heart Rate) 80 /min Edilberto [employer] 09-01-2017 13:48-0500 Weight 110.68 kg Edilberto Point[employer] 08-05-2017 13:30-0500 BMI (Body Mass Index) 33.63 kg/m2 Edilberto Point[employer] 08-05-2017 13:30-0500 Body weight 112.49 kg Ericka Muniz [employer] 08-05-2017 13:30-0500 BP Diastolic 80 mm[Hg] Edilberto Silveirayou[employer] 08-05-2017 13:30-0500 BP Systolic 140 mm[Hg] Edilberto Silveirayou[employer] 08-05-2017 13:30-0500 BSA (Body Surface Area) 2.39 m2 Edilberto Silveirayou[employer] 08-05-2017 13:30-0500 Height 182.88 cm Edilberto Zamora [employer] 08-05-2017 13:30-0500 Pulse (Heart Rate) 84 /min Edilberto [employer] 08-05-2017 13:30-0500 Weight 112.49 kg Edilberto Zamora [employer] 06-27-2017 17:18-0500 BMI (Body Mass Index) 33.63 kg/m2 Edilberto Zamora [employer] 06-27-2017 17:18-0500 Body weight 112.49 kg Ericka SilveirayoubeQ [employer] 06-27-2017 17:18-0500 BP Diastolic 90 mm[Hg] Edilberto Zamora [employer] 06-27-2017 17:18-0500 BP Systolic 140 mm[Hg] Edilberto Zamora [employer] 06-27-2017 17:18-0500 BSA (Body Surface Area) 2.39 m2 Edilberto Point[employer] 06-27-2017 17:18-0500 Height 182.88 cm Edilberto Zamora [employer] 06-27-2017 17:18-0500 Pulse (Heart Rate) 80 /min Edilberto [employer] 06-27-2017 17:180500 Weight 112.49 kg Edilberto JaraAdarza [employer] 04-05-2017 13:30-0400 Body weight 106.6 kg Ericka SilveirayoubeQ [employer] 04-05-2017 13:30-0400 BP Diastolic 80 mm[Hg] Edilberto [employer]Ad[employer] 04-05-2017 13:30-0400 BP Systolic 118 mm[Hg] Edilberto [employer] 04-05-2017 13:30-0400 Pulse (Heart Rate) 70 /min Edilberto Simmery 04-05-2017 13:30-0400 Weight 106.6 kg Edilberto [employer] 03-01-2017 12:25-0400 BMI (Body Mass Index) 32.01 kg/m2 Edilberto Point[employer] 03-01-2017 12:25-0400 Body weight 107.05 kg Ericka Muniz [employer] 03-01-2017 12:25-0400 BP Diastolic 80 mm[Hg] Edilberto [employer] 03-01-2017 12:25-0400 BP Systolic 116 mm[Hg] Edilberto [employer] 03-01-2017 12:25-0400 BSA (Body Surface Area) 2.33 m2 Edilberto [employer] 03-01-2017 12:25-0400 Height 182.88 cm Edilberto Point[employer] 03-01-2017 12:25-0400 Pulse (Heart Rate) 84 /min [employer] 03-01-2017 12:25-0400 Weight 107.05 kg Edilberto Zamora [employer] 02-09-2017 13:42-0400 BMI (Body Mass Index) 32.01 kg/m2 Edilberto Zamora [employer] 02-09-2017 13:42-0400 Body weight 107.05 kg Ericka FrazierMocoSpace 02-09-2017 13:42-0400 BP Diastolic 80 mm[Hg] Edilberto Zamora [employer] 02-09-2017 13:42-0400 BP Systolic 130 mm[Hg] Edilberto JaraAdarza [employer] 02-09-2017 13:42-0400 BSA (Body Surface Area) 2.33 m2 Edilberto [employer]Ad[employer]za [employer] 02-09-2017 13:42-0400 Height 182.88 cm Edilberto [employer] 02-09-2017 13:42-0400 Pulse (Heart Rate) 80 /min Edilberto [employer] 02-09-2017 13:42-0400 Weight 107.05 kg Edilberto Zamora [employer] 11-30-2016 13:21-0400 BMI (Body Mass Index) 32.35 kg/m2 Edilberto [employer] 11-30-2016 13:21-0400 Body weight 108.18 kg Ericka Muniz [employer] 11-30-2016 13:21-0400 BP Diastolic 76 mm[Hg] Edilberto [employer] 11-30-2016 13:21-0400 BP Systolic 128 mm[Hg] Edilberto Silveirayou[employer] 11-30-2016 13:210400 BSA (Body Surface Area) 2.34 m2 Edilberto Silveirayou[employer] 11-30-2016 13:0400 Height 182.88 cm Edilberto Silveirayou[employer]Q [employer] 11-30-2016 13:21-0400 Pulse (Heart Rate) 84 /min Edilberto [employer] 11-30-2016 13:21-0400 Weight 108.18 kg Edilberto Silveirayou[employer] 09-28-2016 11:37-0400 BMI (Body Mass Index) 32.75 kg/m2 Edilberto Silveir[employer]ou[employer] 09-28-2016 11:37-0400 Body weight 109.54 kg Ericka Silveirayou[employer]Q [employer] 09-28-2016 11:37-0400 BP Diastolic 92 mm[Hg] Edilberto Silve[employer] 09-28-2016 11:37-0400 BP Systolic 142 mm[Hg] Edilberto Silveir[employer]ou[employer] 09-28-2016 11:37-0400 BSA (Body Surface Area) 2.36 m2 Edilberto Silveirayou[employer] 09-28-2016 11:37-0400 Height 182.88 cm Edilberto Zamora [employer] 09-28-2016 11:37-0400 Pulse (Heart Rate) 100 /min Edilberto [place] [facility] 09-28-2016 11:37-0400 Weight 109.54 kg Edilberto Zamora [facility] 08-03-2016 13:51-0500 BMI (Body Mass Index) 32.96 kg/m2 Edilberto [place] 08-03-2016 13:51-0500 Body weight 110.22 kg Ericka Muniz [facility] 08-03-2016 13:51-0500 BP Diastolic 96 mm[Hg] Edilberto [place] 08-03-2016 13:51-0500 BP Systolic 152 mm[Hg] Edilberto [place] 08-03-2016 13:51-0500 BSA (Body Surface Area) 2.37 m2 [employer] 08-03-2016 13:51-0500 Height 182.88 cm Edilberto Point[place] 08-03-2016 13:51-0500 Pulse (Heart Rate) 108 /min Edilberto Simmery 08-03-2016 13:51-0500 Weight 110.22 kg Edilberto Point[place] 03-31-2016 11:23-0400 BMI (Body Mass Index) 32.64 kg/m2 Edilberto [place] 03-31-2016 11:23-0400 Body weight 106.14 kg Ericka Muniz [facility] 03-31-2016 11:23-0400 BP Diastolic 76 mm[Hg] Edilberto [place] 03-31-2016 11:23-0400 BP Systolic 124 mm[Hg] [employer] 03-31-2016 11:23-0400 BSA (Body Surface Area) 2.31 m2 Edilberto Zamora [facility] [employer] 03-31-2016 11:23-0400 Height 180.34 cm Edilberto SilveirayoubeQ - [employer] 03-31-2016 11:23-0400 Pulse (Heart Rate) 80 /min Edilberto Tijerina [employer] 03-31-2016 11:23-0400 Weight 106.14 kg Edilberto Zamora MonroeyoubeQ - [employer] 03-30-2016 13:44-0400 BMI (Body Mass Index) 32.85 kg/m2 Edilberto Zamora [employer] 03-30-2016 13:44-0400 Body weight 106.82 kg Ericka SilveirayoubeQ - [employer] 03-30-2016 13:44-0400 BP Diastolic 70 mm[Hg] Edilberto Zamora [facility] 03-30-2016 13:44-0400 BP Systolic 136 mm[Hg] Edilberto Zamora [employer] 03-30-2016 13:44-0400 BSA (Body Surface Area) 2.31 m2 Edilberto Zamora MonroeyoubeQ - [employer] 03-30-2016 13:44-0400 Height 180.34 cm Edilberto Zamora [employer] 03-30-2016 13:44-0400 Pulse (Heart Rate) 96 /min Edilberto [employer] 03-30-2016 13:44-0400 Weight 106.82 kg Edilberto Zamora [employer] 02-23-2016 14:54-0400 BMI (Body Mass Index) 32.71 kg/m2 Edilberto [employer] 02-23-2016 14:54-0400 Body weight 106.37 kg Ericka Muniz [employer] 02-23-2016 14:54-0400 BP Diastolic 90 mm[Hg] Edilberto Pointworthy 02-23-2016 14:54-0400 BP Systolic 132 mm[Hg] Edilberto Pointworthy 02-23-2016 14:54-0400 BSA (Body Surface Area) 2.31 m2 Edilberto Pointworthy 02-23-2016 14:54-0400 Height 180.34 cm [employer] 02-23-2016 14:54-0400 Pulse (Heart Rate) 88 /min Edilberto [employer] [facility] [employer] 02-23-2016 14:54-0400 Weight 106.37 kg Edilberto Pointworthy 12-23-2015 13:34-0400 BMI (Body Mass Index) 33.89 kg/m2 Edilberto Pointworthy 12-23-2015 13:34-0400 Body weight 110.22 kg Ericka Muniz [employer] 12-23-2015 13:34-0400 BP Diastolic 76 mm[Hg] Edilberto Pointworthy 12-23-2015 13:34-0400 BP Systolic 110 mm[Hg] [employer] 12-23-2015 13:34-0400 BSA (Body Surface Area) 2.35 m2 [employer] 12-23-2015 13:34-0400 Height 180.34 cm [employer] 12-23-2015 13:34-0400 Pulse (Heart Rate) 100 /min Edilberto Jaraeder [employer] 12-23-2015 13:34-0400 Weight 110.22 kg Edilberto Pointworthy 12-09-2015 13:00-0400 BMI (Body Mass Index) 33.47 kg/m2 Edilberto Pointworthy 12-09-2015 13:00-0400 Body weight 108.86 kg Ericka Muniz [employer] 12-09-2015 13:00-0400 BP Diastolic 74 mm[Hg] Edilberto Pointworthy 12-09-2015 13:00-0400 BP Systolic 114 mm[Hg] Edilberto Pointworthy 12-09-2015 13:00-0400 BSA (Body Surface Area) 2.34 m2 Edilberto Pointworthy 12-09-2015 13:00-0400 Height 180.34 cm Edilberto Pointworthy 12-09-2015 13:00-0400 Pulse (Heart Rate) 100 /min Edilberto [employer] 12-09-2015 13:00-0400 Weight 108.86 kg Edilberto Pointworthy 12-03-2015 12:29-0400 BMI (Body Mass Index) 34.31 kg/m2 Edilberto Pointworthy 12-03-2015 12:29-0400 Body weight 111.59 kg Ericka Muniz [employer] 12-03-2015 12:29-0400 BP Diastolic 66 mm[Hg] [employer] 12-03-2015 12:29-0400 BP Systolic 114 mm[Hg] Edilberto SilveirayoubeQ - [employer] 12-03-2015 12:29-0400 BSA (Body Surface Area) 2.36 m2 Edilberto SilveirayoubeQ - [employer] 12-03-2015 12:290400 Height 180.34 cm Edilberto Zamora Monroeyoube[employer] 12-03-2015 12:29-0400 Pulse (Heart Rate) 100 /min Edilberto Sil[employer]PlayDo 12-03-2015 12:29-0400 Weight 111.59 kg Edilberto Zamora [employer] 11-18-2015 13:52-0400 BMI (Body Mass Index) 34.07 kg/m2 Edilberto Zamora Monroeyoube[employer] 11-18-2015 13:52-0400 Body weight 110.82 kg Ericka SilveirayoubeQ - [employer] 11-18-2015 13:52-0400 BP Diastolic 82 mm[Hg] Edilberto Zamora Monroeyoube[employer] 11-18-2015 13:52-0400 BP Systolic 124 mm[Hg] Edilberto Zamora [employer] 11-18-2015 13:52-0400 BSA (Body Surface Area) 2.36 m2 Edilberto Pointworthy 11-18-2015 13:52-0400 Height 180.34 cm Edilberto Zamora [employer] 11-18-2015 13:52-0400 Pulse (Heart Rate) 100 /min Edilberto Simmery 11-18-2015 13:52-0400 Weight 110.82 kg Edilberto [employer]Adarza [employer] 11-05-2015 14:53-0400 BMI (Body Mass Index) 34.31 kg/m2 Edilberto [employer]Adarza [employer] 11-05-2015 14:53-0400 Body weight 111.59 kg Ericka Muniz [employer] 11-05-2015 14:53-0400 BP Diastolic 70 mm[Hg] Edilberto Pointworthy 11-05-2015 14:53-0400 BP Systolic 140 mm[Hg] Edilberto Pointworthy 11-05-2015 14:53-0400 BSA (Body Surface Area) 2.36 m2 Edilberto Pointworthy 11-05-2015 14:53-0400 Height 180.34 cm Edilberto Pointworthy 11-05-2015 14:53-0400 Pulse (Heart Rate) 120 /min Edilberto [employer] [facility] [employer] 11-05-2015 14:53-0400 Weight 111.59 kg Edilberto Pointworthy 10-13-2015 13:24-0400 BMI (Body Mass Index) 34.38 kg/m2 Edilberto Pointworthy 10-13-2015 13:24-0400 Body weight 111.81 kg Ericka Muniz [employer] 10-13-2015 13:24-0400 BP Diastolic 84 mm[Hg] Edilberto Pointworthy 10-13-2015 13:24-0400 BP Systolic 144 mm[Hg] Edilberto Pointworthy 10-13-2015 13:24-0400 BSA (Body Surface Area) 2.37 m2 Edilberto SilveirayoubeQ - [employer] 10-13-2015 13:24-0400 Height 180.34 cm Edilberto SilveirayoubeQ - [employer] 10-13-2015 13:24-0400 Pulse (Heart Rate) 108 /min Edilberto [employer] 10-13-2015 13:24-0400 Weight 111.81 kg Edilberto Zamora [employer] 10-03-2015 11:47-0400 BMI (Body Mass Index) 34.38 kg/m2 Edilberto Zamora [employer] 10-03-2015 11:47-0400 Body weight 111.81 kg Ericka SilveirayoubeQ - [employer] 10-03-2015 11:47-0400 BP Diastolic 80 mm[Hg] Edilberto Zamora [employer] 10-03-2015 11:47-0400 BP Systolic 106 mm[Hg] Edilberto Zamora [employer] 10-03-2015 11:47-0400 BSA (Body Surface Area) 2.37 m2 Edilberto Zamora Monroeyou[employer] 10-03-2015 11:47-0400 Height 180.34 cm Edilberto Zamora [employer] 10-03-2015 11:47-0400 Pulse (Heart Rate) 116 /min Edilberto Sil[employer]Do 10-03-2015 11:47-0400 Weight 111.81 kg Edilberto Zamora [employer] 09-29-2015 12:48-0400 BMI (Body Mass Index) 35.15 kg/m2 Edilberto Pointworthy 09-29-2015 12:48-0400 Body weight 114.31 kg Ericka SilveirayoubeQ - [employer] 09-29-2015 12:48-0400 BP Diastolic 68 mm[Hg] Edilberto JaraAdarza [employer] 09-29-2015 12:48-0400 BP Systolic 108 mm[Hg] Edilberto Pointworthy 09-29-2015 12:48-0400 BSA (Body Surface Area) 2.39 m2 Edilberto Point[employer] 09-29-2015 12:48-0400 Height 180.34 cm Edilberto Pointworthy 09-29-2015 12:48-0400 Pulse (Heart Rate) 76 /min Edilberto Simmery 09-29-2015 12:48-0400 Weight 114.31 kg Edilberto Pointworthy 08-26-2015 15:06-0500 Pulse Oximetry 97 % Edilberto Pointworthy 08-26-2015 15:06-0500 SaO2% (BldA) [Mass fraction] 97 % Ericka Muniz [employer] 08-26-2015 14:14-0500 BMI (Body Mass Index) 36.26 kg/m2 Edilberto Pointworthy 08-26-2015 14:14-0500 Body Temperature 98.1 [degF] Edilberto [employer] 08-26-2015 14:14-0500 Body weight 117.94 kg Ericka Muniz [employer] 08-26-2015 14:14-0500 BP Diastolic 64 mm[Hg] Edilberto SilveirayoubeQ - [employer] 08-26-2015 14:14-0500 BP Systolic 100 mm[Hg] Edilberto SilveirayoubeQ - [employer] 08-26-2015 14:14-0500 BSA (Body Surface Area) 2.43 m2 Edilberto SilveirayoubeQ - [employer] 08-26-2015 14:14-0500 Height 180.34 cm Edilberto Zamora [employer] 08-26-2015 14:14-0500 Pulse (Heart Rate) 112 /min Edilberto Silveirahard Francisco [employer] 08-26-2015 14:14-0500 Respiratory Rate 20 /min Edilberto Silveirahard Maldonado [employer] 08-26-2015 14:14-0500 Weight 117.94 kg Edilberto Zamora [employer] 08-12-2015 13:36-0500 BMI (Body Mass Index) 36.26 kg/m2 Edilberto Zamora [employer] 08-12-2015 13:36-0500 Body weight 117.94 kg Ericka SilveirayoubeQ - [employer] 08-12-2015 13:36-0500 BP Diastolic 70 mm[Hg] Edilberto Zamora [employer] 08-12-2015 13:36-0500 BP Systolic 104 mm[Hg] Edilberto Zamora [employer] 08-12-2015 13:36-0500 BSA (Body Surface Area) 2.43 m2 Edilberto Pointworthy 08-12-2015 13:36-0500 Height 180.34 cm Edilberto Pointworthy 08-12-2015 13:36-0500 Pulse (Heart Rate) 76 /min Edilberto Tijerina [employer] 08-12-2015 13:36-0500 Weight 117.94 kg Edilberto Monroe [facility] 07-24-2015 13:00-0500 BMI (Body Mass Index) 36.4 kg/m2 Edilberto SilveirayoubeQ - [employer] 07-24-2015 13:00-0500 Body Temperature 97.6 [degF] Edilberto SilveiraTestlio 07-24-2015 13:00-0500 Body weight 118.39 kg Ericka Monroe [facility] 07-24-2015 13:00-0500 BP Diastolic 80 mm[Hg] Edilberto SilveirayoubeQ - [employer] 07-24-2015 13:00-0500 BP Systolic 144 mm[Hg] Edilberto SilveirayoubeQ - [employer] 07-24-2015 13:00-0500 BSA (Body Surface Area) 2.44 m2 Edilberto SilveirayoubeQ - [employer] 07-24-2015 13:00-0500 Height 180.34 cm Edilberto SilveirayoubeQ - [employer] 07-24-2015 13:00-0500 Pulse (Heart Rate) 120 /min Edilberto Tijerina [employer] 07-24-2015 13:00-0500 Weight 118.39 kg Edilberto Zamora [employer] 06-03-2015 13:38-0500 BMI (Body Mass Index) 35.98 kg/m2 Edilberto Zamora Mon[employer]ou[employer] 06-03-2015 13:38-0500 Body Temperature 98.8 [degF] Edilberto Meraz [employer] 06-03-2015 13:38-0500 Body weight 117.03 kg Ericka Monroe [facility] 06-03-2015 13:38-0500 BP Diastolic 90 mm[Hg] Edilberto Zamora Mon[employer] 06-03-2015 13:38-0500 BP Systolic 144 mm[Hg] Edilberto SilveirayoubeQ - [employer] 06-03-2015 13:38-0500 BSA (Body Surface Area) 2.42 m2 Edilberto Zamora Monroeyoube[employer] 06-03-2015 13:38-0500 Height 180.34 cm Edilberto Zamora [employer] 06-03-2015 13:38-0500 Pulse (Heart Rate) 84 /min Edilberto eng [employer] 06-03-2015 13:38-0500 Weight 117.03 kg Edilberto Zamora Mon[employer]ou[employer] Encounters Encounter Date Encounter Type Care Provider Facility Start: 04-08-2025 End: 04-08-2025 Office outpatient new 45 minutes [facility] Comment on above: 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); Low libido; Encounter for dietary consultation; Class 1 obesity due to excess calories without serious comorbidity with body mass index (BMI) of 34.0 to 34.9 in adult Start: 04-08-2025 End: 04-08-2025 Naresh Yarbrough MD Work Phone: [facility] Start: 04-08-2025 End: 04-08-2025 Naresh Yarbrough MD Work Phone: [facility] Start: 04-08-2025 End: 04-08-2025 ambulatory KIMMIE YARBROUGH Not Available Start: 12-31-2024 Office outpatient vi sit 25 minutes Cinthia Magana Other [facility] Start: 12-31-2024 Cinthia Lilly m Other [facility] Start: 12-25-2024 Office outpatient vi sit 25 minutes Ericka Muniz Other [facility] Start: 12-25-2024 Ericka Muniz Other [facility] Start: 12-20-2024 End: 12-20-2024 ambulatory Bo Pearce DO Facility:[facility] Start: 08-14-2024 End: 08-14-2024 ambulatory Ericka Muniz MD Work Phone: [facility] Work Phone: Start: 08-14-2024 End: 08-14-2024 Patient encounter procedure Ericka Muniz MD Work Phone: [facility] Work Phone: Start: 07-19-2024 Non-patient / Non-visit Ericka allen MD Work Phone: [facility] Work Phone: Start: 07-19-2024 End: 07-19-2024 Patient encounter procedure Ericka Muniz MD Work Phone: [facility] Work Phone: Start: 07-19-2024 End: 07-19-2024 ambulatory Ericka Muniz MD Work Phone: [facility] Work Phone: Start: 06-21-2024 End: 06-21-2024 ambulatory Ayanna Brooks VP CARE MANAGEMENT-AGRICULTURAL [employer]OP FARM MANAGER Facility:[facility] Start: 06-12-2024 End: 06-12-2024 ambulatory Ayanna Brooks VP CARE MANAGEMENT-AGRICULTURAL CROP FARM MANAGER Facility:[facility] Start: 04-26-2024 Office outpatient vi sit 25 minutes Cinthia Magana Other [facility] Start: 03-21-2024 Ericka Muniz Other [facility] Start: 03-21-2024 Office outpatient vi sit 25 minutes Ericka Muniz Other [facility] Start: 01-11-2024 End: 01-11-2024 ambulatory Ayanna Fabian Domingaryan VP CARE MANAGEMENT-AGRICULTURAL CROP FARM MANAGER Facility:[facility] Start: 12-14-2023 End: 12-14-2023 Emergency department patient visit RADHA Flores Alexsandra Work Phone: [facility] Work Phone: Start: 12-03-2023 End: 12-03-2023 Emergency department patient visit VP CARE MANAGEMENTDouglas Flores Alexsandra Work Phone: [facility] Work Phone: Start: 11-14-2023 End: 11-14-2023 Office outpatient visit 25 minutes Ericka Muniz Other [facility] Start: 11-14-2023 Ericka Muniz Other [facility] Office Start: 11-14-2023 Foot examination performed Ericka Muniz [facility] [employer] Start: 08-09-2023 Telephone encounter Shay lal DO Work Phone: [facility] Start: 06-16-2023 End: 06-18-2023 Pre-admission assessment NAYLA OAKES [facility] Start: 01-25-2023 Office outpatient vi sit 15 minutes Ericka Muniz Other [facility] Office Start: 01-25-2023 Edilberto schmitt Other [facility] Office Start: 01-25-2023 Foot examination performed Ericka Muniz [facility] Start: 01-25-2023 Office outpatient vi sit 25 minutes Edilberto Zamora Other [facility] Start: 10-27-2022 ambulatory NAYLA OAKES Faci lity:H1 Start: 07-28-2022 End: 07-29-2022 ambulatory NAYLA Ontiveros [facility] Facility:H1 Start: 07-27-2022 Lab Edilberto Jaimes keshia Other [facility] Start: 07-27-2022 Edilberto Jaimes keshia Other [facility] Start: 07-27-2022 Office Services Ericka Muniz Other [facility] Start: 07-27-2022 Foot examination performed Edilberto Zamora [facility] Start: 07-27-2022 End: 07-27-2022 Office outpatient visit 25 minutes Edilberto Zamora Other [facility] Start: 06-23-2022 End: 06-24-2022 ambulatory NAYLA Ontiveros [facility] Facility:H1 Start: 05-27-2022 End: 05-27-2022 ambulatory NON STAFF [facility] Work Phone: Start: 05-27-2022 End: 05-27-2022 Discharged Recurring [facility] [place] Start: 05-26-2022 End: 05-26-2022 ambulatory NON STAFF [facility] Work Phone: Start: 05-26-2022 End: 05-26-2022 Patient encounter procedure [facility] [address] Start: 05-05-2022 Registered Recurring Fi [facility] [place] Start: 04-22-2022 End: 04-22-2022 ambulatory NON STAFF [facility] Work Phone: Start: 04-22-2022 End: 04-22-2022 Patient encounter procedure [facility]MRI [address] [place] Start: 04-21-2022 End: 04-21-2022 ambulatory NON STAFF [facility] Work Phone: Start: 04-21-2022 End: 04-21-2022 Patient encounter procedure [facility] [address] [place] Start: 04-14-2022 Registered Recurring Ricardo [facility] [place] Start: 04-01-2022 End: 04-01-2022 Emergency department patient visit [facility] Start: 04-01-2022 Office outpatient ne w 20 minutes Franky P Dyana Other [facility] Start: 04-01-2022 Office outpatient vi sit 15 minutes Franky P Dyana Other [facility] Start: 03-16-2022 Office outpatient vi sit 15 minutes Franky P Dyana Other [facility] Start: 02-17-2022 Office outpatient vi sit 15 minutes Franky P Dyana Other [facility] Start: 02-17-2022 Lab Ericka Muniz Other [facility] Start: 02-17-2022 Ericka Muniz Other [facility] Start: 02-17-2022 Office outpatient vi sit 15 minutes Ericka Muniz Other [facility] Start: 01-15-2022 Lab Edilberto Jaimes keshia Other [facility] Start: 01-15-2022 Edilberto Jaimes keshia Other [facility] Start: 01-15-2022 Office outpatient vi sit 15 minutes Franky P Dyana Other [facility] Start: 01-15-2022 Foot examination performed Edilberto Zamora [facility] Start: 01-15-2022 Office outpatient vi sit 25 minutes Edilberto Zamora Other [facility] Start: 10-20-2021 Office outpatient vi sit 25 minutes Franky P Dyana Other [facility] Start: 09-17-2021 Office outpatient ne w 45 minutes Franky Vidaland Other [facility] Start: 09-17-2021 Office Services Franky Yu September and Other [facility] Start: 09-03-2021 Office outpatient vi sit 25 minutes Ericka Muniz Other [facility] Start: 09-03-2021 Foot examination performed Edilberto Pointworthy Start: 09-03-2021 Office outpatient vi sit 25 minutes Edilberto L Zamora Other [facility] Start: 08-18-2021 Lab Edilberto L Schroe keshia Other [facility] Start: 08-18-2021 Medicare Lab Edilberto L Mareke keshia Other [facility] Start: 08-18-2021 Edilberto L Mraeke keshia Other [facility] Office Start: 03-19-2021 Medicare Lab Edilberto L Schroe [facility]ia Other [facility] Start: 03-19-2021 Edilberto L Schroe keshia Other [facility] Start: 03-19-2021 Foot examination performed Edilberto Pointworthy Start: 03-19-2021 Office outpatient vi sit 25 minutes Edilberto L Zamora Other [facility] Start: 12-23-2020 Lab Ericka Muniz Other [facility] Start: 12-23-2020 Ericka Muniz Other [facility] Start: 12-23-2020 Office outpatient vi sit 25 minutes Ericka Muniz Other [facility] Start: 10-20-2020 Encounter for genera l adult medical examination without abnormal findings Ericka Muniz [facility] Start: 09-09-2020 Foot exam performed Edilberto Pointworthy Start: 09-09-2020 Office outpatient vi sit 25 minutes Edilberto Melinda JaraZamora Other [facility] Start: 09-09-2020 Medicare Lab Edilberto Jaimes keshia Other [facility] Start: 09-09-2020 Edilberto Melinda Jaraangelia keshia Other [facility] Start: 08-05-2020 Office outpatient vi sit 15 minutes Ericka Muniz Other [facility] Start: 06-12-2020 Office outpatient vi sit 15 minutes Ericka Muniz Other [facility] Start: 06-04-2020 Office outpatient vi sit 15 minutes Ericka Muniz Other [facility] Start: 04-08-2020 Medicare Lab Edilberto Lawrence Marekangelia keshia Other [facility] Start: 04-08-2020 Edilberto Melinda Jaimes keshia Other [facility] Start: 04-08-2020 Foot exam performed Edilberto Zamora [facility] Start: 04-08-2020 Office outpatient vi sit 25 minutes Edilberto Zamora Other [facility] Start: 03-25-2020 End: 03-28-2020 Patient encounter procedure MIGNON TOWNSEND [facility] Start: 03-25-2020 End: 03-27-2020 Subsequent hospital visit by physician [facility] Mri Scanner [facility] MRI Comment on above: Right knee pain, uns pecified chronicity Start: 02-21-2020 Office outpatient vi sit 15 minutes Ericka Muniz Other [facility] Start: 02-12-2020 End: 02-15-2020 Patient encounter procedure ERICKA MUNIZ [facility] Start: 02-12-2020 End: 02-14-2020 Subsequent hospital visit by physician [facility] Mri Scanner [facility] MRI Comment on above: Acute pain of right shoulder Start: 01-10-2020 Office outpatient vi sit 15 minutes Ericka Muniz Other [facility] Start: 12-28-2019 End: 12-28-2019 Subsequent hospital visit by physician Tess Escalona Work Phone: [facility] OR Comment on above: 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, initial encounter (Primary Dx) Start: 12-27-2019 Office outpatient vi sit 25 minutes Edilberto Zamora Other [facility] Start: 12-26-2019 End: 12-27-2019 Patient encounter procedure TESS Hernandez [facility] Start: 12-26-2019 End: 12-26-2019 Subsequent hospital visit by physician [facility] Lab Drawing Room [facility] Laboratory Comment on above: Arrived Start: 12-24-2019 End: 12-25-2019 Patient encounter procedure TESS C [facility] Start: 12-24-2019 End: 12-28-2019 Subsequent hospital visit by physician [facility] Covid19 Pat Screening Schedule [facility] EKG Start: 12-20-2019 Lab Edilberto Jarae keshia Other [facility] Start: 12-20-2019 Edilberto Jaimes keshia Other [facility] Start: 11-26-2019 Office outpatient vi sit 15 minutes Ericka Muniz Other [facility] Start: 11-26-2019 Office outpatient vi sit 25 minutes Ericka Muniz Other [facility] Start: 11-19-2019 Lab Ericka Muniz Other [facility] Start: 11-19-2019 Ericka Muniz Other [facility] Start: 08-28-2019 Foot exam performed Edilberto Zamora [facility] Start: 08-28-2019 Office outpatient vi sit 25 minutes Edilberto Zamora Other [facility] Start: 08-21-2019 Lab Edilberto Jaimes keshia Other [facility] Start: 08-21-2019 Edilbertogavi Jaimes keshia Other [facility] Start: 05-28-2019 Encounter for genera l adult medical examination without abnormal findings Edilberto JaraAdarza [employer] Start: 05-28-2019 Routine general medi trent examination at a health care facility Ericka Muniz [facility] Start: 05-28-2019 Periodic preventive med est patient 40-64yrs Ericka Muniz Other [facility] Start: 05-22-2019 Lab Ericka Muniz Other [facility] Start: 05-22-2019 Ericka Muniz Other [facility] Start: 04-17-2019 Foot exam performed Edilberto Pointworthy Start: 04-17-2019 Office outpatient vi sit 25 minutes Edilberto Zamora Other [facility] Start: 04-12-2019 Follow-up visit [facility]den [facility] Start: 04-12-2019 Office outpatient vi sit 5 minutes Ayden [employer] Start: 04-12-2019 Postoperative follow -up visit Edilberto [facility] Start: 04-12-2019 Procedure Ayden bwoden Other [facility] Start: 04-12-2019 Ayden bowden Other [facility] Start: 04-09-2019 Lab Edilberto Jaimes keshia Other [facility] Start: 04-09-2019 Edilbertogavi Jaimes keshia Other [facility] Start: 03-29-2019 Procedure Ayden Bassu kal Other [facility] Start: 03-29-2019 Ayden bowden Other [facility] Start: 02-26-2019 Office outpatient ne w 20 minutes Ayden Trudy Other [facility] Start: 01-25-2019 Encounter for genera l adult medical examination without abnormal findings Edilberto Point[employer] Start: 01-25-2019 Routine general medi trent examination at a health care facility Ericka Muniz [facility] Start: 01-25-2019 Office outpatient vi sit 15 minutes Ericak Muniz Other [facility] Start: 01-02-2019 Office Services Natty Precious schneider Other [facility] Start: 01-02-2019 Natty ureña Other [facility] Start: 12-12-2018 Foot exam performed Edilberto Zamora[employer]ar[employer] Start: 12-12-2018 Office outpatient vi sit 25 minutes Edilbertogavi Zamora Other [facility] Start: 12-08-2018 Lab Edilberto Jaimes keshia Other [facility] Start: 12-08-2018 Edilbertogavi Jarae keshia Other [facility] Start: 11-09-2018 Patient encounter procedure LENKA ROQUE [facility] Start: 10-12-2018 Procedure Sasha Morris Other [facility] Start: 10-12-2018 Sasha Morris Other [facility] Start: 10-02-2018 Foot exam performed Edilberto delgado Other [facility] Start: 10-02-2018 Office outpatient vi sit 25 minutes Edilberto Zamora Other [facility] Start: 09-26-2018 Office Services Edilberto L Mareke keshia Other [facility] Start: 09-26-2018 Edilberto L Mareke keshia Other [facility] Start: 08-30-2018 Encounter for genera l adult medical examination without abnormal findings Edilberto [employer] Start: 08-30-2018 Routine general medi trent examination at a health care facility Edilberto [employer] Start: 08-30-2018 Office outpatient vi sit 25 minutes Ericka Muniz Other [facility] Start: 08-23-2018 Lab Ericka Muniz Other [facility] Start: 08-23-2018 Ericka Muniz Other [facility] Start: 07-27-2018 Office Services Edilberto L Schroe keshia Other [facility] Start: 07-27-2018 Edilberto L Schroe keshia Other [facility] Start: 06-21-2018 Procedure Pedro pitts Other [facility] Start: 06-21-2018 Pedro pitts Other [facility] Start: 06-19-2018 Foot exam performed Edilberto L Sc hroeder Other [facility] Start: 06-19-2018 Office outpatient vi sit 25 minutes Edilberto L Zamora Other [facility] Start: 06-12-2018 Lab Edilberto L Schroe keshia Other [facility] Start: 06-12-2018 Edilberto L Schroe keshia Other [facility] Start: 04-20-2018 Walk-In Ericka Muniz Other [facility] Start: 04-20-2018 End: 04-20-2018 Ericka Muniz Other [facility] Start: 04-20-2018 Office Services Natty schneider Other [facility] Start: 03-20-2018 Foot exam performed Edilberto L Sc hroeder Other [facility] Start: 03-20-2018 Office outpatient vi sit 25 minutes Edilberto L Zamora Other [facility] Start: 03-08-2018 Lab Edilberto L Schroe keshia Other [facility] Start: 03-08-2018 Edilberto L Mareke keshia Other [facility] Start: 03-01-2018 Office [...] vi sit 25 minutes Edilberto Zamora Other [facility] Start: 12-09-2017 Office Services Ericka Muniz Other [facility] Start: 12-09-2017 Ericka Muniz Other [facility] Start: 11-25-2017 Lab Edilberto L Mareke keshia Other [facility] Start: 11-25-2017 Edilberto Melinda Jaimes keshia Other [facility] Start: 09-08-2017 Office Services Edilbertogavi Jaimes keshia Other [facility] Start: 09-08-2017 Edilberto L Mareke keshia Other [facility] Start: 09-01-2017 Office outpatient vi sit 25 minutes Ericka Muniz Other [facility] Start: 08-24-2017 Lab Ericka Muniz Other [facility] Start: 08-24-2017 Ericka Muniz Other [facility] Start: 08-09-2017 Office Services Natty schneider Other [facility] Start: 08-09-2017 Natty ureña Other [facility] Start: 08-05-2017 Foot exam performed Edilberto Zamora [facility] Start: 08-05-2017 Office outpatient vi sit 25 minutes Edilberto L Zamora Other [facility] Start: 08-01-2017 Lab Edilberto L Schroe keshia Other [facility] Start: 08-01-2017 Edilberto L Schroe keshia Other [facility] Start: 06-27-2017 Office outpatient vi sit 15 minutes Ericka Muniz Other [facility] Start: 04-05-2017 Foot exam performed Edilberto L Sc hroeder Other [facility] Start: 04-05-2017 Office outpatient vi sit 25 minutes Edilberto Melinda Zamora Other [facility] Start: 03-29-2017 Lab Edilberto L Mareke keshia Other [facility] Start: 03-29-2017 Edilbertogavi Jaimes keshia Other [facility] Start: 03-01-2017 Office outpatient vi sit 25 minutes Ericka Muniz Other [facility] Start: 02-17-2017 End: 02-17-2017 Split Srvc Ericka Muniz Other [facility] Start: 02-17-2017 End: 02-17-2017 Ericka Muniz Other [facility] Start: 02-09-2017 Office outpatient vi sit 25 minutes Ericka Muniz Other [facility] Start: 11-30-2016 Foot exam performed Edilberto L Sc hroeder Other [facility] Start: 11-30-2016 Office outpatient vi sit 25 minutes Edilberto L Zamora Other [facility] Start: 11-23-2016 Lab Edilberto L Schroe keshia Other [facility] Start: 11-23-2016 Edilberto L Schroe keshia Other [facility] Start: 09-28-2016 Office outpatient vi sit 25 minutes Ericka Muniz Other [facility] Start: 09-21-2016 Lab Ericka Muniz Other [facility] Start: 09-21-2016 Ericka Muniz Other [facility] Start: 08-13-2016 Split Srvc Sasha Morris Other [facility] Start: 08-13-2016 Sasha Morris Other [facility] Start: 08-03-2016 Foot exam performed Edilberto L Sc hroeder Other [facility] Start: 08-03-2016 Office outpatient vi sit 25 minutes Edilberto L Zamora Other [facility] Start: 07-27-2016 Lab Edilberto L Schroe keshia Other [facility] Start: 07-27-2016 Edilberto L Mareke keshia Other [facility] Start: 03-31-2016 Office outpatient vi sit 25 minutes Ericka Muniz Other [facility] Start: 03-30-2016 Foot exam performed Edilberto L Sc hroeder Other [facility] Start: 03-30-2016 Office outpatient vi sit 25 minutes Edilberto L Zamora Other [facility] Start: 03-04-2016 Lab Edilberto L Schroe keshia Other [facility] Start: 03-04-2016 Edilberto L Schroe keshia Other [facility] Start: 02-23-2016 Office outpatient vi sit 15 minutes Ericka Muniz Other [facility] Start: 12-23-2015 Office outpatient vi sit 15 minutes Ericka Muniz Other [facility] Start: 12-09-2015 Office outpatient vi sit 15 minutes Ericka Muniz Other [facility] Start: 12-03-2015 Office outpatient vi sit 15 minutes Edilbertogavi Zamora Other [facility] Start: 11-26-2015 Lab Edilberto L Mareke kehsia Other [facility] Start: 11-26-2015 Edilberto L Mareke keshia Other [facility] Start: 11-18-2015 Office outpatient vi sit 25 minutes Ericka Muniz Other [facility] Start: 11-07-2015 Lab Edilberto Lawrence Mareke keshia Other [facility] Start: 11-07-2015 Edilberto Melinda Jaraangelia keshia Other [facility] Start: 11-05-2015 Foot exam performed Edilberto delgado Other [facility] Start: 11-05-2015 Office outpatient vi sit 25 minutes Edilberto Melinda JaraZamora Other [facility] Start: 10-29-2015 Lab Edilberto Jaimes keshia Other [facility] Start: 10-29-2015 Edilberto Jaimes keshia Other [facility] Start: 10-13-2015 Office outpatient vi sit 15 minutes Ericka Muniz Other [facility] Start: 10-03-2015 Foot exam performed Edilberto Zamora [facility] Start: 10-03-2015 Office consultation new/estab patient 80 min Edilberto Zamora Other [facility] Start: 10-02-2015 Office Services Ericka Muniz Other [facility] Start: 10-02-2015 Ericka Muniz Other [facility] Start: 09-29-2015 Office outpatient vi sit 25 minutes Ericka Muniz Other [facility] Start: 09-24-2015 Procedure Jesus Del Cid Other [facility] Start: 09-24-2015 Jesus Del Cid Other [facility] Start: 08-26-2015 Office consultation new/estab patient 60 min Jesus Del Cid Other [facility] Start: 08-12-2015 Office Services Ericka Muniz Other [facility] Start: 08-12-2015 Ericka Muniz Other [facility] Start: 08-06-2015 Split Srvc Ericka Muniz Other [facility] Start: 08-06-2015 Ericka Muniz Other [facility] Start: 08-05-2015 Lab Ericka Muniz Other [facility] Start: 08-05-2015 End: 08-05-2015 Ericka Muniz Other [facility] Start: 08-05-2015 End: 08-05-2015 Split Srvc Ericka Muniz Other [facility] Start: 07-24-2015 Office outpatient vi sit 15 minutes Lindsay Kimball Other [facility] Start: 06-03-2015 Office outpatient ne w 45 minutes Ericka Muniz Other [facility] Procedures Date Procedure Procedure Detail Performing Clinician Start: 12-25-2024 Comprehensive metabolic panel Ericka Muniz Start: 12-25-2024 Hemoglobin A1c measurement Ericka Flavio Start: 12-25-2024 Lipid panel Ericka Muniz Start: 12-25-2024 Cinthia Schworm Start: 07-19-2024 Plain chest X-ray Ericka Muniz MD Work Phone: Start: 03-16-2024 Comprehensive metabolic panel Ericka Muniz Start: 03-16-2024 Hemoglobin A1c measurement Ericka Flavio Start: 03-16-2024 Lipid panel Ericka Muniz Start: 03-16-2024 Thyroid stimulating hormone measurement Ericka Muniz Start: 03-16-2024 Vitamin B12 measurement Cinthia Schworm Start: 11-14-2023 Diabetic foot examination Ericka Flavio Start: 11-14-2023 Hemoglobin A1c measurement Ericka Muniz [...] Flavio Start: 07-27-2022 Diabetic foot examination Edilberto Whatley r Start: 07-27-2022 Docrev cur meds by liv torres Start: 07-27-2022 Documentation of current medications Ericka Muniz Start: 07-21-2022 Comprehensive metabolic panel Edilbertogavi Muñozr oeder Start: 07-21-2022 Hemoglobin A1c measurement Edilberto Woods er Start: 07-21-2022 MICROALBUMIN/Urine Creat Ratio Edilberto Muñoz anand Start: 07-21-2022 Parathyroid hormone measurement Edilberto Thomas [...] joints, with or without interface material, prefabricated, [id number] Ericka Muniz Start: 03-16-2022 X-ray of left ankle Franky Dyana Start: 03-16-2022 X-ray of left foot Franky Dyana Start: 02-17-2022 End: 02-17-2022 Comprehensive metabolic panel Franky wilde Start: 02-17-2022 Destruction of lesion of skin Ericka Muniz Start: 02-17-2022 Docrev cur meds by liv wells Ericka Muniz Start: 02-17-2022 Documentation of current medications Ericka Muniz Start: 02-17-2022 Hemoglobin A1c measurement Franky Naidu amado Start: 02-17-2022 Lipid panel Franky Turpin Start: 02-17-2022 MICROALBUMIN/Urine Creat Ratio Franky chung Start: 02-17-2022 Ericka Muniz Start: 02-16-2022 Docrev cur meds by [facility] Ericka Muniz Start: 02-16-2022 Documentation of current medications Ericka Muniz Start: 01-18-2022 Diabetic foot examination Edilberto shah Start: 01-15-2022 Dip UA (for Ketones) Edilberto Zamora Start: 01-15-2022 Ericka Muniz Start: 01-15-2022 Docrev cur meds by elbert priscilla torres Start: 01-15-2022 Documentation of current medications Ericka Muniz Start: 01-15-2022 Reduction of callus Ericka Muniz Start: 01-14-2022 Docrev cur meds by elbert priscilla anton Start: 01-14-2022 Documentation of current medications Ericka Muniz Start: 01-01-2022 Comprehensive metabolic panel Edilberto pérez Start: 01-01-2022 Erythrocyte mean corpuscular volume determination Edilberto Zamora Start: 01-01-2022 Gamma glutamyl transferase measurement Edilberto Zamora Start: 01-01-2022 Hemoglobin A1c measurement Edilberto levi Start: 01-01-2022 MICROALBUMIN/Urine Creat Ratio Edilberto michel Start: 01-01-2022 Ericka Muniz Start: 10-20-2021 Docrev cur meds by elbert priscilla Arenas hand Start: 10-20-2021 Documentation of current medications Ericka Muniz Start: 09-18-2021 Debridement of nail Ericka Muniz Start: 09-18-2021 Drainage of abscess Ericka Muniz Start: 09-18-2021 Procedure on skin Ericka Muniz Start: 09-17-2021 Dup-scan lxtr art/artl bpgs uni/lmtd study Franky Vidaland Start: 09-17-2021 Non-invasive physiologic study extremity 3 levls Franky Turpin Start: 09-17-2021 Docrev cur meds by elbert priscilla Arenas hand Start: 09-17-2021 Documentation of current medications Ericka Muniz Start: 09-17-2021 Doppler ultrasonography of artery of lower limb Franky Turpin Start: 09-17-2021 Plain X-ray of toe Franky Turpin Start: 09-17-2021 Wound microscopy, culture and sensitivities Franky Turpin Start: 09-03-2021 Diabetic foot examination Edilberto shah Start: 09-03-2021 Docrev cur meds by elbert priscilla torres Start: 09-03-2021 Documentation of current medications Ericka Muniz Start: 08-18-2021 BS-Dip Edilberto Sera Start: 08-18-2021 Ericka Muniz Start: 08-18-2021 Comprehensive metabolic panel Edilberto pérez [...] r Start: 03-19-2021 Docrev cur meds by [facility] Edilberto torres Start: 03-19-2021 Documentation of current medications Ericka Muniz Start: 03-12-2021 Comprehensive metabolic panel Edilberto Schr oekeshia Start: 03-12-2021 Erythrocyte mean corpuscular volume determination Edilberto Sera Start: 03-12-2021 Hemoglobin A1c measurement Edilbertogavi Woods er Start: 03-12-2021 Parathyroid hormone measurement Edilberto [...] jt lower extrem w/o contrast matrl Mignon Townsend Work Phone: Start: 02-21-2020 Doc meds verified w/pt or re Ericka Muniz Start: 02-21-2020 Documentation of current medications Ericka Muniz Start: 02-12-2020 Mri any jt upper extremity w/o contrast matrl WALTER CALVILLO Start: 02-12-2020 Mri any jt upper extremity w/o contrast matrl Mignon Verdugo Timo Work Phone: Start: 01-09-2020 Doc meds verified w/pt or re Edilberto torres Start: 01-09-2020 Documentation of current medications Ericka Muniz Start: 12-28-2019 GLUCOSE, WHOLE BLOOD Tess David Escalona Work Phone: Start: 12-27-2019 Basic metabolic panel calcium total Edilberto Sera Start: 12-27-2019 Doc meds verified w/pt or re Edilberto torres Start: 12-27-2019 Documentation of current medications Ericka Muniz Start: 12-27-2019 Hemoglobin A1c measurement Ericka Muniz Start: 12-27-2019 Hemoglobin glycosylated a1c Edilberto Marekangelia schmitt Start: 12-26-2019 Assay of urea nitrogen quantitative WALTER CALVILLO Start: 12-26-2019 Blood count hematocrit WALTER CALVILLO Start: 12-26-2019 Creatinine blood WALTER CALVILLO Start: 12-26-2019 Electrolyte panel WALTER CALVILLO Start: 12-26-2019 Glucose quantitative blood xcpt reagent strip WALTER CALVILLO Start: 12-26-2019 Assay of urea nitrogen quantitative Tess David Escalona Work Phone: Start: 12-26-2019 Blood count hematocrit Tess Escalona Work Phone: Start: 12-26-2019 Creatinine blood Tess C Escalona Work Phone: Start: 12-26-2019 Electrolyte panel Tess C Escalona Work Phone: Start: 12-26-2019 Glucose quantitative blood xcpt reagent strip Tess David Escalona Work Phone: Start: 12-24-2019 Ecg routine [...] Muniz Start: 08-18-2019 Hemoglobin glycosylated a1c Edilberto Marekangelia schmitt Start: 05-28-2019 Doc meds verified w/pt [...] Muniz Start: 04-17-2019 Diabetic foot examination Edilberto Schroede r Start: 04-17-2019 Doc meds verified w/pt or re Edilberto torres Start: 04-17-2019 Documentation of current medications Ericka Muniz Start: 04-13-2019 Assay of glutamyltrase gamma Ayden Scarb rough Start: 04-13-2019 Comprehensive metabolic panel Ayden Scar darlene Start: 04-13-2019 Gamma glutamyl transferase measurement Ericka Muniz Start: 04-13-2019 Hemoglobin A1c measurement Ericka Muniz Start: 04-13-2019 Hemoglobin glycosylated a1c Ayden Scarbr oukal Start: 04-13-2019 MICROALBUMIN/Urine Creat Ratio Ayden Sca [...] Edilberto Zamora Start: 02-27-2019 Lipid panel Ericka uMniz Start: 02-27-2019 MICROALBUMIN/Urine Creat Ratio Edilberto michel [...] Zamora Start: 12-12-2018 Diabetic foot examination Edilberto Phylicia r Start: 12-02-2018 Glucose measurement, quantitative Ericka F ox Start: 12-02-2018 Glucose quantitative blood xcpt reagent strip Edilberto Sera Start: 12-02-2018 Hemoglobin A1c measurement Ericka Muniz Start: 12-02-2018 Hemoglobin glycosylated a1c Edilberto Theodore keshia Start: 10-02-2018 Diabetic foot examination Edilberto Phylicia r Start: 10-02-2018 Doc meds verified w/pt [...] Muniz Start: 09-17-2018 Vitamin B12 and Folate dEilberto Zamora Start: 09-17-2018 Ericka Muniz Start: 09-01-2018 [...] Zamora Start: 06-19-2018 Diabetic foot examination Edilberto shah Start: 06-19-2018 Doc meds verified w/pt or re Edilberto torres Start: 06-19-2018 Documentation of current medications Ericka Muniz Start: 06-19-2018 Glucose measurement, quantitative Ericka F ox Start: 06-19-2018 Glucose quantitative blood xcpt reagent strip Edilberto Zamora Start: 06-19-2018 Hemoglobin A1c measurement Ericka Muniz Start: 06-19-2018 Hemoglobin glycosylated a1c Edilberto Marekangelia keshia Start: 04-20-2018 Medical nutrition re-assmt&ivntj indiv ea 15 m Ericka Muniz Start: 03-20-2018 Diabetic foot examination Edilberto Whatley r Start: 03-15-2018 Glucose measurement, quantitative Ericka Coughlin ox Start: 03-15-2018 Glucose quantitative blood xcpt reagent strip Ayden Yates Start: 03-15-2018 Hemoglobin A1c measurement Ericka Muniz Start: 03-15-2018 Hemoglobin glycosylated a1c Ayden ruth Start: 03-15-2018 MICROALBUMIN/Urine Creat Ratio Ayden [facility] Start: 03-15-2018 Ericka Muniz Start: 03-01-2018 Doc [...] Muniz Start: 12-03-2017 Hemoglobin glycosylated a1c Edilberto schmitt Start: 09-08-2017 Diab manage trn per indiv Edilberto Woodse r Start: 09-08-2017 Diabetes self-monitoring health education [...] 08-09-2017 Diab manage trn per indiv Edilberto Whatley r Start: 08-09-2017 Diabetes self-monitoring health education Ericka Muniz Start: 08-05-2017 Diabetic foot examination Edilberto Marekamiangelia judy Start: 08-05-2017 Glucose measurement, quantitative Ericka Coughlin ox Start: 08-05-2017 Glucose quantitative blood xcpt [...] Zamora Start: 04-05-2017 Diabetic foot examination Edilberto Marekamiangelia r Start: 04-05-2017 Ericka Muniz Start: 04-02-2017 Glucose measurement, quantitative Ericka F ox Start: 04-02-2017 Glucose quantitative blood xcpt reagent strip Edilberto Zamora Start: 04-02-2017 Hemoglobin A1c measurement Ericka Muniz Start: 04-02-2017 Hemoglobin glycosylated a1c Edilberto Schroe keshia Start: 04-02-2017 MICROALBUMIN/Urine Creat Ratio Edilberto [...] Non-invas physiologic std extremity art 2 level Edilbetro Zamora Start: 07-30-2016 Assay of thyroid stimulating [...] Muniz Start: 03-30-2016 Diabetic foot examination Edilberto shah Start: 03-20-2016 Alanine aminotransferase measurement Ericka Muniz Start: 03-20-2016 Aspartate aminotransferase measurement Ericka Muniz Start: 03-20-2016 Basic metabolic panel calcium total Edilberto aZmora Start: 03-20-2016 Hemoglobin A1c measurement Ericka Muniz Start: 03-20-2016 Hemoglobin glycosylated a1c Edilberto Jaimes keshia Start: 03-20-2016 Lipid panel Edilberto Zamora Start: 03-20-2016 Lipid panel Ericka Muniz Start: 03-20-2016 Transferase alanine amino alt sgpt Edilberto Zamora Start: 03-20-2016 Transferase aspartate amino ast sgot Edilberto Zamora Start: 03-04-2016 Basic metabolic panel calcium total Edilberto Zamora Start: 03-04-2016 Glucose measurement, quantitative Ericka allen Start: 03-04-2016 Hemoglobin A1c measurement Ericka Muniz Start: 03-04-2016 Hemoglobin glycosylated a1c Edilberto Jaimes keshia Start: 12-05-2015 Assay of thyroid stimulating [...] Edilberto Zamora Start: 11-05-2015 Diabetic foot examination Edilebrto Peggyangelia shah Start: 11-03-2015 Basic metabolic panel calcium [...] 10-03-2015 Diab manage trn per indiv Edilberto Whatley r Start: 10-03-2015 Diabetes self-monitoring health education Ericka Muniz Start: 10-03-2015 Diabetic foot examination Edilberto Phylicia r Start: 10-03-2015 Glucose measurement, quantitative Ericka Coughlin ox Start: 10-03-2015 Glucose quantitative blood xcpt reagent strip Edilberto Zamora Start: 10-03-2015 Insulin C-peptide measurement Ericka Muniz Start: 09-29-2015 Medical nutrition assmt&ivntj indiv each 15 mi Edilberto Zamora Start: 09-29-2015 Therapeutic prophylactic/dx injection subq/im Edilberto Sera Start: 09-24-2015 Unlisted pulmonary service/procedure Edilberto Zamora Start: 08-26-2015 Allergen spec ige crude allergen extract each Edilberto Zamora Start: 08-26-2015 Assay of gammaglobulin ige Edilberto levi Start: 08-26-2015 Blood count complete auto&auto difrntl [...] Treatment Date Care Activity Detail Author Start: 08-05-2025 End: 08-05-2025 Patient encounter procedure 08/05/2025 2:30 PM EST Office Visit [facility] [address] [place] [address] Kimmie Yarbrough MD [address] [place] [address] [facility] Start: 06-26-2025 Assay of prostate specific antigen total PSA total [facility] Start: 06-26-2025 Assay of testosteron e free Total and free testosterone panel by equilibrium dialysis [facility] Start: 06-26-2025 Assay of testosteron e total Total and free testosterone panel by equilibrium dialysis [facility] Start: 06-26-2025 Comprehensive metabo lic panel CMP [facility] Start: 06-26-2025 Hemoglobin glycosyla ramses a1c Hgb A1c [facility] Start: 06-26-2025 Lipid panel Lipid panel [facility] Start: 04-08-2025 End: 04-08-2025 Patient encounter procedure 04/08/2025 2:10 PM EDT Office Visit [facility] [address] [place] [id number] Kimmie Yarbrough MD [address] [place] [address] Arrived [facility] Comment on above: Arrived Start: 04-08-2025 End: 04-08-2026 Basic metabolic 1998 panel - Serum or Plasma Basic metabolic panel 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 Expected: 04/08/2025 (Approximate), Expires: 04/08/2026 [facility] Comment on above: Expected: 04/08/2025 (Approximate), Expires: 04/08/2026 Start: 04-08-2025 End: 04-08-2026 Ferritin [Mass/volume] in Serum or Plasma Ferritin 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 Expected: 04/08/2025 (Approximate), Expires: 04/08/2026 [facility] Comment on above: Expected: 04/08/2025 (Approximate), Expires: 04/08/2026 Start: 04-08-2025 End: 04-08-2026 Hemoglobin [Mass/volume] in Blood Hemoglobin 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 Expected: 04/08/2025 (Approximate), Expires: 04/08/2026 [facility] Comment on above: Expected: 04/08/2025 (Approximate), Expires: 04/08/2026 Start: 04-08-2025 End: 04-08-2026 Prolactin Prolactin 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 Expected: 04/08/2025 (Approximate), Expires: 04/08/2026 [facility] Comment on above: Expected: 04/08/2025 (Approximate), Expires: 04/08/2026 Start: 04-08-2025 End: 04-08-2026 Prostate specific Ag [Mass/volume] in Serum or Plasma PSA 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 Expected: 04/08/2025 (Approximate), Expires: 04/08/2026 [facility] Work Phone: Comment on above: Expected: 04/08/2025 (Approximate), Expires: 04/08/2026 Start: 04-08-2025 End: 04-08-2026 Sex hormone binding globulin Sex hormone binding globulin 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 Expected: 04/08/2025 (Approximate), Expires: 04/08/2026 [facility] Comment on above: Expected: 04/08/2025 (Approximate), Expires: 04/08/2026 Start: 04-08-2025 End: 04-08-2026 Testosterone [Mass/volume] in Serum or Plasma Testosterone 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 Expected: 04/08/2025 (Approximate), Expires: 04/08/2026 [facility] Comment on above: Expected: 04/08/2025 (Approximate), Expires: 04/08/2026 Start: 03-11-2025 Influenza vaccination Influenza Vacc ine (#1) [facility] Start: 12-25-2024 Comprehensive metabo lic panel [facility] Start: 12-25-2024 Hemoglobin glycosyla ramses a1c Hgb A1c [facility] Start: 12-25-2024 Lipid panel Lipid panel [facility] Start: 09-18-2024 Comprehensive metabo lic panel Comp [facility] Start: 09-18-2024 Hemoglobin glycosyla ramses a1c A1c [facility] Start: 09-18-2024 Lipid panel Lipid panel [facility] Start: 03-16-2024 Assay of thyroid stimulating hormone tsh TSH [facility] Start: 03-16-2024 Comprehensive metabo lic panel [facility] Start: 03-16-2024 Cyanocobalamin vitam in b-12 B12 level [facility] Start: 03-16-2024 Hemoglobin glycosyla ramses a1c [facility] Start: 03-16-2024 Lipid panel Lipid profile [facility] Start: 11-14-2023 Hemoglobin glycosyla ramses a1c A1c [facility] Start: 2023 Assay of prostate specific antigen total PSA total [facility] Start: 2023 Blood count complete automated CBC PLATELET COUNT; AUTOMATED [facility] Start: 2023 Comprehensive metabo lic panel CMP [facility] Start: 2023 Lipid panel Lipid panel [facility] Start: 07-28-2023 Comprehensive metabo lic panel CMP (comprehensive metabolic panel) [facility] Start: 07-28-2023 Hemoglobin glycosyla ramses a1c HEMOGLOBIN A1C [facility] Start: 07-28-2023 Lipid panel Lipid profile [facility] Start: 03-11-2023 Influenza vaccination Influenza Vacc ine (#1) [facility] Start: 01-25-2023 Assay of prostate specific antigen total PSA, total [facility] Start: 01-25-2023 Blood count complete automated CBC PLATELET COUNT; AUTOMATED [facility] Start: 01-25-2023 Comprehensive metabo lic panel CMP [facility] Start: 01-24-2023 Glucose quantitative blood xcpt reagent strip GLUCOSE [facility] Start: 01-24-2023 Hemoglobin glycosyla ramses a1c HEMOGLOBIN A1C [facility] Start: 01-24-2023 Lipid panel Lipid profile [facility] Start: 01-24-2023 Transferase alanine amino alt sgpt SGPT (ALT) [facility] Start: 07-21-2022 25 hydroxy includes fractions if performed VITAMIN D 25-HYDROXY [facility] Start: 07-21-2022 Assay of parathormone PTH-INTACT B [facility] Start: 07-21-2022 Comprehensive metabo lic panel CMP (comprehensive metabolic panel) [facility] Start: 07-21-2022 Hemoglobin glycosyla ramses a1c HEMOGLOBIN A1C [facility] Start: 07-19-2022 Lipid panel Lipid panel [facility] Start: 10-25-2022 X-ray of left ankle ANKLE COMP LETE X-RAY 3 VIEWS [facility] Start: 04-22-2022 MR Foot - right WO a nd W contrast IV [facility] Start: 04-22-2022 MRI of right foot wi th contrast MR foot RT wo/w con [facility] Start: 04-21-2022 MR Ankle - right WO and W contrast IV [facility] Start: 04-21-2022 MRI of right ankle w ith contrast MR ankle RT wo/w con [facility] Start: 04-05-2022 Assay of lactate Lactic acid serum B [facility] Start: 04-05-2022 Blood count complete auto&auto difrntl wbc CBC w diff [facility] Start: 04-05-2022 C-reactive protein CRP [facility] Start: 04-05-2022 Comprehensive metabo lic panel CMP [facility] Start: 04-05-2022 MRI of lower extremity MRI ankle and foot [facility] Start: 04-05-2022 Sedimentation rate r bc non-automated ESR non-auto [facility] Start: 04-01-2022 Duplex scan of lower limb veins US venous duplex LE RT [facility] Start: 04-01-2022 US Lower extremity v ein - right [facility] Work Phone: Start: 03-16-2022 X-ray of left ankle ANKLE COMP LETE X-RAY 3 VIEWS [facility] Start: 03-16-2022 X-ray of left foot FOOT COMPLE TE X-RAY 3 VIEWS [facility] [employer] [facility] Start: 02-17-2022 Assay of prostate specific antigen total PSA total [facility] Start: 02-17-2022 Comprehensive metabo lic panel Comp [facility] Start: 02-17-2022 Hemoglobin glycosyla ramses a1c A1c [facility] Start: 02-17-2022 Lipid panel Lipid panel [facility] Start: 01-01-2022 Assay of glutamyltra se gamma GAMMA GT [facility] Start: 01-01-2022 Blood count complete automated CBC PLATELET COUNT; AUTOMATED [facility] Start: 01-01-2022 Comprehensive metabo lic panel CMP (comprehensive metabolic panel) [facility] Start: 01-01-2022 Hemoglobin glycosyla ramses a1c HEMOGLOBIN A1C [facility] Start: 09-17-2021 Cul bact xcpt urine blood/stool aerobic isol Wound culture and sensitivity [facility] Start: 09-17-2021 Dup-scan lxtr art/ar tl bpgs uni/lmtd study MARGA w/ segmental pressures and waveforms [facility] Start: 09-17-2021 Non-invas physiologi c std extremity art 2 level MARGA w/ segmental pressures and waveforms [facility] Start: 09-17-2021 Non-invasive physiologic study extremity 3 levls MARGA w/ segmental pressures and waveforms [facility] Start: 09-17-2021 Plain X-ray of toe TOES X-RAY 2-3 EWS [facility] Start: 08-18-2021 Blood count complete automated CBC & PLATELET COUNT; AUTOMATED [facility] Start: 08-18-2021 Comprehensive metabo lic panel CMP (comprehensive metabolic panel) [facility] Start: 08-18-2021 Hemoglobin glycosyla ramses a1c A1c [facility] Start: 08-18-2021 Lipid panel LIPID PROFILE [facility] Start: 07-19-2021 Assay of glutamyltra se gamma GAMMA GT [facility] Start: 07-19-2021 Basic metabolic pane l calcium total Chem 8 [facility] Start: 07-19-2021 Hemoglobin glycosyla ramses a1c HEMOGLOBIN A1C [facility] Start: 06-24-2021 Blood count complete automated CBC PLATELET COUNT; AUTOMATED [facility] Start: 06-24-2021 Comprehensive metabo lic panel Comp [facility] Start: 06-24-2021 Hemoglobin glycosyla ramses a1c A1c [facility] Start: 06-24-2021 Lipid panel Lipid panel [facility] Start: 03-12-2021 Assay of parathormone PTH-INTACT B [facility] Start: 03-12-2021 Assay of phosphorus inorganic Phosphorus, serum [facility] Start: 03-12-2021 Blood count complete automated CBC PLATELET COUNT; AUTOMATED [facility] Start: 03-12-2021 Comprehensive metabo lic panel CMP (comprehensive metabolic panel) [facility] Start: 03-12-2021 HbA1c (Bld) [Mass fraction] HEMOGLOBIN A1C [facility] Start: 03-12-2021 Hemoglobin glycosyla ramses a1c HEMOGLOBIN A1C [facility] Start: 12-25-2020 Creatinine measurement Creatinine mo nitoring [place] Start: 12-25-2020 Potassium monitoring Potassium monit [place]ing [place] Start: 12-23-2020 Assay of prostate specific antigen total PSA total [facility] Start: 08-08-2020 Comprehensive metabo lic panel CMP (comprehensive metabolic panel) [facility] Start: 08-08-2020 HbA1c (Bld) [Mass fraction] HEMOGLOBIN A1C [facility] Start: 03-28-2020 Glucose quantitative blood xcpt reagent strip GLUCOSE 2 HR Post Prandial [facility] Start: 03-28-2020 HbA1c (Bld) [Mass fraction] HEMOGLOBIN A1C [facility] Start: 03-28-2020 Hepatic function panel LFT (li rosanne function test) [facility] Start: 03-24-2020 Annual Wellness Visi t (AWV) Annual Wellness Visit (AWV) [place] Start: 03-11-2020 Influenza vaccination [place], [place] Start: 12-28-2019 End: 12-28-2019 Hospital Encounter [facility] Comment on above: SHOULDER ARTHROSCOPY ROTATOR CUFF REPAIR, POSSIBLE BICEPS TENDONDESIS Start: 12-28-2019 End: 12-28-2019 Hospital Encounter [facility] Comment on above: SHOULDER ARTHROSCOPY ROTATOR CUFF REPAIR, POSSIBLE [facility]ENDONDES[facility] Start: 12-27-2019 Basic metabolic pane l calcium total Chem 8 [facility] Start: 12-27-2019 HbA1c (Bld) [Mass fraction] HEMOGLOBIN A1C [facility] Start: 11-27-2019 Comprehensive metabo lic panel Comp [facility] Start: 11-27-2019 HbA1c (Bld) [Mass fraction] A1c [facility] Start: 11-27-2019 Lipid panel Lipid panel [facility] Start: 08-28-2019 Basic metabolic pane l calcium total Chem 8 [facility] Start: 08-18-2019 Basic metabolic pane l calcium total Chem 8 [facility] Start: 08-18-2019 Gamma glutamyl transferase [Catalytic activity/Vol] GGT [facility] Start: 08-18-2019 HbA1c (Bld) [Mass fraction] HEMOGLOBIN A1C [facility] Start: 05-22-2019 Assay of prostate specific antigen total PSA total [facility] Start: 05-22-2019 Blood count complete automated CBC & PLATELET COUNT; AUTOMATED [facility] Start: 05-22-2019 Comprehensive metabo lic panel Comprehensive metabolic panel [facility] Start: 05-22-2019 Lipid panel Lipid panel [facility] Start: 05-22-2019 Urnls dip stick/tabl et rgnt auto w/o microscopy Urinalysis auto [facility] Start: 04-17-2019 Im adm prq id subq/i m njxs 1 vaccine Administration of single vaccine [facility] Start: 04-13-2019 Assay of glutamyltra se gamma GAMMA GT [facility] Start: 04-13-2019 Comprehensive metabo lic panel CMP (comprehensive metabolic panel) [facility] Start: 04-13-2019 Hemoglobin A1c/Hemoglobin.total mass fraction (Bld) HEMOGLOBIN A1C [facility] Start: 02-27-2019 Assay of prostate specific antigen total PSA total [facility] Start: 02-27-2019 Blood count complete automated CBC & PLATELET COUNT; AUTOMATED [facility] Start: 02-27-2019 Comprehensive metabo lic panel Comprehensive metabolic panel [facility] Start: 02-27-2019 Hemoglobin A1c/Hemoglobin.total mass fraction (Bld) Hgb A1c [facility] Start: 02-27-2019 Lipid panel Lipid panel [facility] Start: 01-02-2019 Medical nutrition re-assmt&ivntj indiv ea 15 m Medical nutrition therapy; re-assessment and intervention, individual, [id number] with the patient, each 15 minutes [facility] Start: 09-26-2018 Medical nutrition re-assmt&ivntj indiv ea 15 m Medical nutrition therapy; re-assessment and intervention, individual, dwdr-[id number]-smcf with the patient, each 15 minutes [facility] Start: 09-17-2018 Glucose mass conc GLUCOSE [facility] Start: 09-17-2018 Hemoglobin A1c/Hemoglobin.total mass fraction (Bld) HEMOGLOBIN A1C [facility] Start: 09-17-2018 Hepatic function panel Liver functio n panel [facility] Start: 07-27-2018 Medical nutrition re-assmt&ivntj indiv ea 15 m Medical nutrition therapy; re-assessment and intervention, individual, lbso-pw-jeuv with the patient, each 15 minutes [facility] Start: 04-20-2018 Medical nutrition re-assmt&ivntj indiv ea 15 m Medical nutrition therapy; re-assessment and intervention, individual, vaku-zj-vakb with the patient, each 15 minutes [facility] Start: 03-15-2018 Glucose mass conc GLUCOSE [facility] Start: 03-15-2018 Hemoglobin A1c/Hemoglobin.total mass fraction (Bld) HEMOGLOBIN A1C [facility] Start: 01-18-2018 Medical nutrition re-assmt&ivntj indiv ea 15 m Medical nutrition therapy; re-assessment and intervention, individual, rfcx-kb-bsir with the patient, each 15 minutes [facility] Start: 12-13-2017 Hepatic function panel Liver functio n panel [facility] Start: 2014 Screening for malign ant neoplasm of colon Colon cancer screen colonoscopy [place], [place] Start: 2014 Shingles Vaccine (1 of 2) Shingles Vaccine (1 of 2) [place], [place] Start: 2004 Diabetes screen Diabetes screen [place], [place] Start: 11-11-1983 DTaP/Tdap/Td vaccine (1 - Tdap) DTaP/Tdap/Td vaccine (1 - Tdap) [place], [place] Start: 11-11-1983 Urine screening for protein Diabetes: Urine Protein Screening [facility] Start: 11-11-1979 HIV screening HIV screen [place], [place] Start: 1974 Glaucoma screening Diabetes: R etinopathy Screening [facility] Start: 1974 Lipid panel Lipid screen [place], [place] Start: 1970 Pneumococcal 0-64 ye ars Vaccine (1 of 1 - PPSV23) Pneumococcal 0-64 years Vaccine (1 of 1 - PPSV23) [place], [place] Start: 1964 Creatinine measurement Creatinine mo [place]itoring [place] Start: 1964 Hemoglobin A1c measurement Diabetes: Hemoglobin A1C [facility] Start: 1964 Hepatitis C screening Hepatitis C sc reen [place], [place] Start: 1964 Medicare Annual Wellness (AWV) Medicare Annual Wellness (AWV) [facility] Start: 1964 Potassium monitoring [facility] monit [facility] [place] Start: 1964 Screening for malign ant neoplasm of colon [facility] Initiate Oxygen Ther apy Protocol Initiate Oxygen Therapy Protocol Respiratory Care Routine Daily until discontinued starting 12/28/2019 [place] Comment on above: Daily until disconti nued starting 12/28/2019 Patient Education [facility] Work Phone: Patient referral [facility] Work Phone: Phase I & II - meter ed glucose Phase I & II - metered glucose Point of Care Testing Routine As Needed until discontinued starting 12/28/2019 [place] Comment on above: As Needed until disc ontinued starting 12/28/2019 SNORING AND OBESITY [facility] Immunizations Immunization Date Immunization Notes Care Provider Fa cili 05-08-2024 COVID-19, Moderna, 100mcg/0.5ml [facility]ia [facility] 05-08-2024 hepatitis A and hepatitis B vaccine [facility] 05-08-2024 measles, mumps and rubella virus vaccine [facility] 05-08-2024 Seasonal trivalent influenza vaccine, adjuvanted, preservative free [facility] 05-08-2024 influenza virus vaccine, unspecified formulation Kimmie Yarbrough MD Work Phone: [facility] 08-05-2023 COVID-19, Moderna, 100mcg/0.5ml Ericka [facility] 08-05-2023 PCV20 Ericka Monroe [facility] 04-28-2022 COVID-19, Pfizer, 30mcg/0.3ml Edilberto Zamora [facility] 04-28-2022 influenza, injectabl e, quadrivalent, contains preservative [facility] 04-28-2022 influenza virus vaccine, unspecified formulation Shay Patterson DO Work Phone: [facility] 12-05-2021 hepatitis A and hepatitis B vaccine [facility] 10-19-2021 hepatitis B vaccine, adult dosage [facility] 10-19-2021 zoster vaccine, live [facility] 06-15-2021 COVID-19, Moderna, 100mcg/0.5ml [facility] 10-14-2020 COVID-19, Moderna, 100mcg/0.5ml [facility] 09-12-2020 COVID-19, Moderna, 100mcg/0.5ml [facility] 04-08-2020 influenza virus vaccine, unspecified formulation; Translations: [Administration of influenza virus vaccine] [facility] 04-08-2020 influenza, high dose seasonal, preservative-free; Translations: [FLU VACC PRSV FREE INC ANTIG] [facility] 04-17-2019 influenza, injectabl e, quadrivalent, contains preservative; Translations: [FLU VACC 4 FRANCISCO 3 YRS PLUS IM] [facility] 04-17-2019 influenza, seasonal, injectable [facility] 04-17-2019 IMMUNIZATION ADMIN; Translations: [IMMUNIZATION ADMIN] [facility] 04-17-2019 Ericka Muniz [facility] 04-20-2018 influenza, seasonal, injectable; Translations: [FLU VACCINE 3 YRS & > IM] Edilberto [facility] 04-20-2018 IMMUNIZATION ADMIN; Translations: [IMMUNIZATION ADMIN] Edilberto [facility] 04-20-2018 Ericka Muniz [facility] 04-05-2017 influenza, seasonal, injectable; Translations: [FLU VACCINE 3 YRS & > IM] Edilberto [facility] 04-05-2017 IMMUNIZATION ADMIN; Translations: [IMMUNIZATION ADMIN] [facility] 04-05-2017 Ericka Muniz [facility] 03-31-2016 influenza, seasonal, injectable; Translations: [FLU VACCINE 3 YRS & > IM] Edilberto [facility] 03-31-2016 IMMUNIZATION ADMIN; Translations: [IMMUNIZATION ADMIN] Edilberto [facility] 03-31-2016 Ericka Muniz [facility] Payers Date Payer Category Payer Self-pay 2022 Unknown 2021 Medicaid [id number] 2020 Medicare DANIEL MEDICARE ADVANTAGE DANIEL MEDICARE ADVANTAGE [id number] 2020-Present [address] [place] [address] [id number] 2020 Medicare (Managed Care) DANIEL FRANZ ADVANTAGE [id number] 2019 Medicare [id number] 2015 Unknown [id number] 2..[id number] 2015 Unknown [facility] MEDICAID xxxxxxxxxxx 2015-Present [id number] CLAIMS DEPARTMENT [address] [place] [address] xxxxxxxxxxx [id number] 2014 Unknown [id number] 1964 Unknown [id number] 2.840.1.985701.3.579.2. 903 1964 Unknown [id number] 2.840.1.743925.3.579.2. 173 1964 Unknown [id number] 2.16840.1.560542.3.579.2. 173 1964 Unknown [id number] 2.16840.1.712408.3.579.2. 173 1964 Unknown [id number] 2.16840.1.186264.3.579.2. 173 1964 Unknown [id number] 2.16840.1.175061.3.579.2. 173 1964 Unknown [id number] 2.16840.1.217793.3.579.2. 173 1964 Unknown [id number] 2.16.840.1.603507.3.579.2. 593 1964 Unknown [id number] 2.16.840.1.933551.3.579.2. 593 1964 Unknown [id number] 2.16.840.1.562412.3.579.2. 593 1964 Unknown [id number] 2.16.840.1.773430.3.579.2. 196 1964 Unknown [id number] 2.16.840.1.372549.3.579.2. 196 1964 Unknown [id number] 2.16.840.1.156173.3.579.2. 196 1964 Unknown [id number] 2.16.840.1.247060.3.579.2. 196 1964 Unknown [id number] 2.16.840.1.696766.3.579.2. 1259 1959 Medicaid [id number] 2.16.840.1.808001.3.441 1959 Unknown [id number] 2.16.840.1.769326.3.441 Unknown Daniel / [id number] Unknown [id number] 2.16.840.1.637623.3.579.2. 531 Unknown [id number] 2.16.840.1.391501.3.579.2. 531 Unknown [id number] 2.16.840.1.111243.3.579.2. 531 Social History Date Type Detail Facility Start: [facility] [employer] [facility] Start: 1-2 cups a day [facility] [employer] [facility] Start: 12-18-2019 End: 12-27-2022 Tobacco smoking status NHIS Current every day smoker [place], [place] History of tobacco use Cigarette Smoker [facility] [place] Start: 12-18-2019 End: 04-08-2025 Cigarettes smoked current (pack per day) - Reported [place] Start: 12-18-2019 End: 04-08-2025 Alcohol intake Current drinker of alcohol (finding) [place] Start: 12-17-2019 Alcohol Comment 3X WEEKLY [place] Start: 1965 Sex Assigned At Not on file [place], [place] Exposure to SARS-CoV -2 (event) Unable to assess [place], [place] Start: 01-01-2020 Tobacco use and exposure Never used [place], [place] Exposure to SARS-CoV -2 (event) Not sure [place] Start: *Tobacco [facility] Start: 04-01-2022 End: 08-14-2024 Tobacco smoking status NHIS Smoker (finding) [facility] Start: 1965 Sex Assigned At Male [facility] Tobacco smoking status No Smokin g Status Entered [facility] Start: 12-27-2022 End: 04-08-2025 Sex Assigned At Male [facility] Start: 12-23-2022 Tobacco Comment 11-20 cigs a day [facility] Start: 12-23-2022 Alcohol Comment 3-4 drinks 4+ times a week. Caffine intake: 2-3 cups per day [facility] Start: 1/2 ppd [facility] Start: 3 or 4 per day [facility] Start: 2-3 cups a day [facility] Start: 3/4 ppd [facility] Start: 0-2 per day [facility] Start: 07-20-2024 End: 08-14-2024 Sex Male (finding) [facility] Medical Equipment Procedure Code Equipment Code Equipment Origin al Text Equipment Identifier Dates [place] Sut Cor[employer] crew [employer] 5.5mm [id number] Start: 12-28-2019 [place] Suture [employer]ivelock 4.75x19.1 Biocomposite Min 5ea [id number] Start: 12-28-2019 Button Endoscopi c Bicep 2.6x12mm [id number] Start: 12-28-2019 Clinical Notes 04-14-2022 to 04-08-2025 Kimmie Yarbrough MD - 04/08/2025 2:10 PM EDTTelephone Encounter - Shon See - 08/09/2023 9:21 AM ESTTelephone Encounter - Shon See - 08/09/2023 9:21 AM EST Note Date & Type Note Facility 04-08-2025 History of Presen t illness Narrative Geremias Melchor is a 59 y.o. male No ref. provider found presents with chief complaint of Testicular Hypofunction HPI: 03/2025 History of Present Illness The patient is a new patient who presents for evaluation of testosterone treatment. He has never undergone opioid or steroid treatment and has no history of prostate cancer, clots, or use of anticoagulation medication. No testosterone lab done yet. SUBJECTIVE: MEDICATIONS: Current Outpatient Medications Medication Instructions albuterol HFA 90 mcg/act inhaler INHALE 1 PUFF BY MOUTH EVERY 6 HOURS NEEDED ALPRAZolam (Xanax) 1 MG tablet TAKE 1 TABLET BY MOUTH THREE TIMES DAILY FOR 90 DAYS ammonium lactate (Amlactin) 12 % cream 1 application , Every 12 hours ASPIRIN 81 PO atorvastatin (LIPITOR) 20 mg, Daily doxepin (SINEquan) 150 MG capsule 1 application as needed Orally at bedtime FLUoxetine (PROzac) 10 MG capsule TAKE 1 CAPSULE BY MOUTH ONCE DAILY FOR 30 DAYS furosemide (LASIX) 20 mg, Daily gabapentin (Neurontin) 800 MG tablet Every 8 hours insulin lispro (HumaLOG) 100 UNIT/ML injection Jardiance 25 MG Every 24 hours Lantus SoloStar 100 UNIT/ML pen INJECT 25 UNITS SUBCUTANEOUSLY IN THE MORNING. PRIME PUMP WITH 2 UNITS BEFORE EACH USE lisinopril 10 mg, Daily metFORMIN (Glucophage) 500 MG tablet Every 8 hours mupirocin (Bactroban) 2 % ointment Syringe, Disposable, 3 ML misc 1 Syringe, Does not apply, Every 14 days testosterone cypionate (DEPO-TESTOSTERONE) 200 mg, Intramuscular, Every 14 days Trelegy Ellipta 100-62.5-25 MCG/ACT aerosol powder INHALE 1 PUFF ONCE DAILY ALLERGIES: No Known Allergies Past Medical History: Diagnosis Date Anxiety Diabetes type I (HCC) Edema HTN (hypertension) Hyperlipidemia Neuropathy Past Surgical History: Procedure Laterality Date HERNIA REPAIR 2018 SHOULDER SURGERY 2019 REVIEW OF SYMPTOMS: 14 POINT OF SYSTEM REVIEWED AND NEGATIVE OBJECTIVE: 04/22/2022 12:00 PM 08/20/2022 12:00 PM 09/03/2022 12:00 PM 10/01/2022 12:00 PM 04/08/2025 2:02 PM Vitals BMI 32.55 kg/m2 32.55 kg/m2 32.55 kg/m2 34.73 kg/m2 BSA (m2) 2.35 m2 2.35 m2 2.35 m2 2.38 m2 Systolic 115 Diastolic 78 Heart Rate 95 SpO2 98 % Resp 18 Height (in) 6' 6' 6' 5' 11 Weight (lb) 240 240 240 240 249 Visit Report Report Physical Exam Constitutional: Appearance: Normal appearance. He is normal weight. HENT: Head: Normocephalic and atraumatic. Right Ear: External ear normal. Nose: Nose normal. Mouth/Throat: Pharynx: Oropharynx is clear. Eyes: Extraocular Movements: Extraocular movements intact. Pupils: Pupils are equal, round, and reactive to light. Cardiovascular: Rate and Rhythm: Normal rate and regular rhythm. Pulmonary: Effort: Pulmonary effort is normal. Abdominal: General: Abdomen is flat. Palpations: Abdomen is soft. Musculoskeletal: General: Normal range of motion. Skin: General: Skin is warm. Neurological: General: No focal deficit present. Mental Status: He is alert. Psychiatric: Mood and Affect: Mood normal. Behavior: Behavior normal. ASSESSMENT AND PLAN: Assessment/Plan Diagnoses and all orders for this visit: Secondary male hypogonadism - testosterone cypionate (Depo-Testosterone) 200 MG/ML injection; Inject 1 mL (200 mg) into the shoulder, thigh, or buttocks every 14 (fourteen) days - Syringe, Disposable, 3 ML misc; 1 Syringe every 14 (fourteen) days - PSA; Future - Hemoglobin; Future - Testosterone; Future - Basic metabolic panel; Future - Ferritin; Future - Prolactin; Future - Sex hormone binding globulin; Future Low libido Encounter for dietary consultation Class 1 obesity due to excess calories without serious comorbidity with body mass index (BMI) of 34.0 to 34.9 in adult Diet and exercise reviewed with the patient Assessment & Plan 1. Secondary hypogonadism: - No history of opioid or steroid treatment, prostate cancer, clots, or use of anticoagulation medication. No testosterone lab done yet. - Testosterone cypionate 200 mg (1 mL) every 2 weeks. - Laboratory tests will be conducted before the next visit in 4 months to monitor response and adjust treatment as necessary. Follow-up: Laboratory tests before the next visit in 4 months. Follow-up in 4 months. Follow up in about 4 months (around 08/08/2025). documented in this encounter [facility] 07-19-2024 Procedure note [facility] 12-03-2023 Hospital Discharge instructions Additional Instructions Sutures out in 7 to 10 days [facility] Work Phone: 08-09-2023 Telephone encounter Note Patient called stating he fell in the bathroom and has a Q-tip jammed in his ear that will not come out. Per Kaur patient needs to come to [place] today at 2:30 PM. Patient states he has another appointment and does not think that will work for him. He states he will be calling his other doctor to coordinate. [facility] 08-09-2023 Miscellaneous Notes Patient called stating he fell in the bathroom and has a Q-tip jammed in his ear that will not come out. [facility] Patient states he has another appointment and does not think that will work for him. He states he will be calling his other doctor to coordinate. documented in this encounter [facility] 07-28-2022 Note PROCEDURE: XR ANKLE RT [...] authenticated by: SASHA FLAHERTY Date: 2022-07-28 16:42 [facility] 07-28-2022 Note PROCEDURE: XR ANKLE RT [...] authenticated by: SASHA FLAHERTY Date: 2022-07-28 16:42 [facility] 06-24-2022 Note PROCEDURE: XR ANKLE RT [...] authenticated by: TESS JHAVERI Date: 2022-06-24 06:20 [facility] 06-24-2022 Note PROCEDURE: XR ANKLE RT [...] authenticated by: TESS JHAVERI Date: 2022-06-24 06:20 [facility] 05-05-2022 Progress note Note Date/Time May 05, 2022 2:50pm [place] [address] Wound Center Provider Note Signed Patient: Geremias Melchor MR#: [id number] : 1965 Acct:[id number] Age/Sex: 56 / M Copies to: NON [...] is not per se happy with 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 lead in [place] and therefore I did give him the name of a local fast food crew lead who could address his concerns with Charcot [...] wound start?: March 2022 Mode of Arrival/ Shipping Lead: Personal vehicle Lives with:: Alone Appetite Description: [...] Appearance: Beefy Red, Epithelial Tissue or Bridge, [place] and Yellow Percent of Wound Bed Granulated/Red: [...] By: <Electronically signed by RADHA Novak> 05/05/22 7310 [facility] Work Phone: [phone] 487-521110-05-2022 Progress note Author Fariha Novak [facility] April 14, 2022 2:46pm Note Date/Time April 14, 2022 2: 46pm [facility] [address] [place] [address] Wound Center Provider Note Signed Patient: Geremias Melchor MR#: [id number] : 1965 Acct:[id number] Age/Sex: 56 / M Copies to: NON [...] is not per se happy with 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 lead in [place] and therefore I did give him the name of a local fast food crew lead who could address his concerns with Charcot [...] wound start?: March 2022 Mode of Arrival/ Shipping Lead: Personal vehicle Lives with:: Alone Appetite Description: [...] w/o penetration to deeper layers Bed Appearance: [place] and Yellow Percent of Wound Bed Granulated/Red: 90 Percent of Devitalized: 10 Length (cm): 0.5 Width (cm): 0.6 Depth (cm): 0.1 CM Sq: 0.300 Surrounding Tissue Appearance: Callous Surrounding Tissue Temp: Warm Drainage Amount: Small Drainage Description: Serosanguineous Drainage Odor: No Odor Left Plantar Great Toe: Type: Diabetic Ulcer Diabetic Ulcer Grading: Superficial ulcer of skin w/o penetration to deeper layers Bed Appearance: [place] and Yellow Percent of Wound Bed Granulated/Red: 50 Percent of Devitalized: 50 Length (cm): 2.3 Width (cm): 1.5 Depth (cm): 0.1 CM Sq: 3.450 Surrounding Tissue Appearance: Callous Surrounding Tissue Temp: Warm Drainage Amount: Small Drainage Description: Serosanguineous Drainage Odor: No Odor Right Plantar Great Toe: Type: Diabetic Ulcer Diabetic Ulcer Grading: Superficial ulcer of skin w/o penetration to deeper layers Bed Appearance: [place] and Yellow Percent of Wound Bed Granulated/Red: 10 Percent of Devitalized: 90 Length (cm): 2.1 Width (cm): 1.1 Depth (cm): 0.1 CM Sq: 2.310 Surrounding Tissue Appearance: Callous Surrounding Tissue Temp: Warm Drainage Amount: Small Drainage Description: Serosanguineous Drainage Odor: No Odor Right Posterior Heel: Type: Diabetic Ulcer Diabetic Ulcer Grading: Superficial ulcer of skin w/o penetration to deeper layers Bed Appearance: [place] and Yellow Percent of Wound Bed Granulated/Red: [...] <Electronically signed by RADHA Novak> 04/14/22 1446 [facility] Work Phone: Evaluation + Plan note No data available for this section [facility] Work Phone: Evaluation note* Diagnosis Onset Date Resolution Status Diabetic foot ulcer acute Diabetes chronic Hyperlipidemia chronic Neuropathy chronic Tobacco use chronic [facility] Work Phone: Evaluation note* Diagnosis Onset Date Resolution Status Diabetes chronic Diabetic foot ulcer chronic Hyperlipidemia chronic Neuropathy chronic Tobacco use chronic [facility] Work Phone: Evaluation note* Diagnosis Onset Date Resolution Status Diabetes chronic Hyperlipidemia chronic Neuropathy chronic Tobacco use chronic Diabetic foot ulcer resolved [facility] Work Phone: Evaluation note* Diagnosis 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 Low libido Encounter for dietary consultation Class 1 obesity due to excess calories without serious comorbidity with body mass index (BMI) of 34.0 to 34.9 in adult [facility] Additional Instructions Return for worsening symptoms Follow-[facility] with wound care and [facility]iat[facility] Work Phone: Hospital Discharge instructions No data available for this section [facility] Additional Instructions Continue good wound care until completely healed [facility] with [facility] Work Phone: Progress note Author Fariha Novak [facility] May 27, 2022 2:46pm Note Date/Time May 27, 2022 2:46pm [facility] [address] [place] [address] Wound Center Provider Note Signed Patient: Geremias Melchor MR#: [id number] : 1965 Acct:[id number] Age/Sex: 56 / M Copies to: NON [...] is not per se happy with 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 lead in [place] and therefore I did give him the name of a local fast food crew lead who could address his concerns with Charcot [...] wound start?: March 2022 Mode of Arrival/ Shipping Lead: Personal vehicle Lives with:: Alone Appetite Description: [...] <Electronically signed by RADHA Novak> 05/27/22 1446 [facility] Work Phone: Progress note No data available for this section [facility] Summary Purpose Family History No Family History Records Found Relationship Condition Age at Onset Recorded Date/T shannan family member Diabetes mellitus Unknown Advance Directives No Advanced Directives Records FoundDocuments on File Type Date Recorded Patient Insurance Account Specialist Expl anation Advance Directives and Living Will Power of Retail Account Executive Documents on File Type Date Recorded Patient Insurance Account Specialist Expl anation Advance Directives and Living Will Power of Retail Account Executive Documents on File Type Date Recorded Patient Insurance Account Specialist Expl anation ACP-Advance Directive ACP-Power of Retail Account Executive Advance Directive Response Recorded Date/ Time Advance [...] for any questions regarding your surgery. Call [phone] forurgent questions after 5PM until 8AM 10. [...] MRI SHOULDER RIGHT WO CONTRAST Mignon Townsend, VP CARE MANAGEMENT - AGRICULTURAL CROP FARM MANAGER [address] [place] [address] Status Reason Specialty Diagnoses / Procedures Referre d By Contact Referred To Contact Open Radiology Diagnoses Right knee pain, unspecified chronicity Procedures MRI KNEE RIGHT WO CONTRAST Mignon Townsend, VP CARE MANAGEMENT - AGRICULTURAL CROP FARM MANAGER [address] [place] [address] Chief Complaint and Reason for Visit Chief [...] 19, 2024 5: 53pm Ref: Dr. Brooks, STEVE August 14 3:04pm Additional Source Comments (unrecognized sect ion and content) No Status Records FoundNo Status Records FoundNo Status Records FoundNo Status Records FoundNo Status Records FoundNo Status Records FoundNo Status Records FoundNo Status Records Found INFORMATION SOURCE (unrecogn ized section and content) DATE CREATED AUTHOR 11/15/2018 [facility] DATE CREATED AUTHOR AUTHOR'S ORGANIZ ATION 03/28/2020 [facility] DATE CREATED AUTHOR AUTHOR'S ORGANIZ ATION 06/21/2020 [facility] DATE CREATED AUTHOR AUTHOR'S ORGANIZ ATION 2022 [facility] DATE CREATED AUTHOR AUTHOR'S ORGANIZ ATION 06/18/2023 [facility] DATE CREATED AUTHOR AUTHOR'S ORGANIZ ATION 11/29/2024 [facility] DATE CREATED AUTHOR AUTHOR'S ORGANIZ ATION 12/22/2024 [facility] DATE CREATED AUTHOR AUTHOR'S ORGANIZ ATION 04/14/[address] [facility] dical Specialists EPIC Reason for Visit (unrecogniz ed section and content) Status Reason Specialty Diagnoses / Procedures Referre d By Contact Referred To Contact Diagnoses Unspecified rotator cuff tear or rupture of right shoulder, not specified as traumatic RIGHT SHOULDER ROTATOR CUFF TEAR Procedures [place] SHLDR ARTHROSCOP,SURG,W/ROTAT CUFF REPR SHOULDER ARTHROSCOPY ROTATOR CUFF REPAIR, POSSIBLE BICEPS TENDONDESIS Tess Escalona MD [address] [place] [address] [facility] Status Reason Specialty Diagnoses / Procedures Referre d By Contact Referred To Contact Closed Radiology Diagnoses Pain in right shoulder Procedures MRI-UPPER EXT JNT WO CONT Tess Escalona MD [address] [facility] [address] [address] Status Reason Specialty Diagnoses / Procedures Referre d By Contact Referred To Contact Closed Radiology Diagnoses Pain in right knee Procedures [facility] MRI LOWER EXTREM JT, W/O CONTRAST Mignon Townsend, VP CARE MANAGEMENT - AGRICULTURAL CROP FARM MANAGER [address] [place] [address] [facility] [address] [place] [address] Reason Comments Testicular Hypofunction Care Teams (unrecognized sec tion and content) [...] Active Fariha Novak APRN Attending Provider Active Databases Software Consultant Relationship Specialty Start Date End Date Shay Han DO [address] [place] [address] PCP - Daniel WANG 12/09/22 Jignesh Muniz MD [facility] [address] [place] [address] PCP - General Family Medicine 12/27/22 Team [...] December 14, 2023 End: December 14, 2023 RUSSEL Ocampo-YI Emergency Provider Active Start: December 14, 2023 End: December 14, 2023 Team Status: Inactive Member Role Status Dates Ericka Muniz MD Primary Care Provider Active Sta rt: July 19, 2024 End: July 19, 2024 WAYNE MccabeC Attending Provider Active Start: July 19, 2024 End: July 19, 2024 Team Status: Active Member Role Status Dates Ericka Muniz MD Primary Care Provider Active Sta rt: July 19, 2024 Ayanna Brooks , TRUE-C Other Provider Active St art: July 19, 2024 Carlos Ware MD Attending Provider Active Start: July 19, 2024 Team Status: Inactive Member Role Status Dates Ericka Muniz MD Primary Care Provider Active Sta rt: August 14, 2024 End: August 14, 2024 Harjinder Shepherd MD Attending Provider Active Start: August 14, 2024 End: August 14, 2024 Databases Software Consultant Relationship Specialty Start Date End Date Jignesh Muniz NP PCP - General Family Medicine 12/27/22 Databases Software Consultant Relationship Specialty Start Date End Date Jignesh Muniz NP PCP - General Family Medicine 12/27/22 Goals (unrecognized section and content) Goals may [...] BE BASED ON THE PRIMARY CLINICAL RECORDS. Knowledge [facility]. provides no warranty or guarantee of the accuracy or completeness of information in this document.
== END 2025-04-17 14:09 | disposition home or self-care (01) ==
LOC: WC 14:09
PROVIDERS: Visit Provider Podiatrist Foot & Ankle Surgery
DX: E11.621 Type 2 diabetes mellitus with foot ulcer (principal); L97.415 Non-pressure chronic ulcer of right heel and midfoot with muscle involvement without evidence of necrosis; L97.426 Non-pressure chronic ulcer of left heel and midfoot with bone involvement without evidence of necrosis
CPT/HCPCS: 11043

== ENCOUNTER 2025-05-08 11:38 | Outpatient (OUT) | payer MEDICARE, MEDICAID, SELFPAY ==
--- OUTSIDE RECORDS SUMMARY | 2025-05-08 11:41 | XMS_ITS | Patient Health Record ---
Author Organization [facility] Address [address] [place] [address] Care Team Providers Care Senior Electrical Design Engineer Name Role Phone Flavio WHEELER, Manfred Primary Care Provider Farzad Watkins Unavailable [phone] Reason For Referral No Information Medications Medication SIG (Take, Route, Frequency, Duration) Notes Start Date End Date Status Ventolin ActiveomeprazoleActivePotassium CLActiveLisinoprilActiveBasaglar KwikPenActive ALPRAZolamActivejardianceActivedoxepinActiveHair, Skin, NailsActiveatorvastatin ActiveFish OilActiveInvokanaActiveVitamin B-12ActiveMetforminActiveBaby Aspirin ActivegabapentinActiveMetoprololActivefurosemideActiveHumaLOGActive Social History Tobacco Use: Social History Observation Description Date Details (start date - stop date) Current Smoker NA - NA Smoking History Question Answer Notes Smoking Status Current Smoker Problems Problem Type SNOMED Code ICD Code Onset Dates Problem Status W/U Status Risk Notes Problem [id number] Olecranon bursitis, right elbow (M70.21) ActiveconfirmedProblemIncomplete rupture of right rotator cuff (M75.111)Active [id number] shoulder pain, unspecified chronicity (M25.511) Activeconfirmed Plan Of Treatment No Information Insurance Providers Payer Name Payer Address Payer Phone Subscriber Number Group Number Insured Name Patient Relationship to Insured Coverage Start Date Coverage End Date Medicare [place] [employer] [address] [place] [address] [id number] [facility] G[facility]EM[facility] A[facility]A Self - patient is the insured [place] Dept of [address] [place] [id number] SHAWN ARAYAelf - [place] [id number], JOHNSelf - patient is the insured Medical (General) History Medical History History ICD Code Asthma/COPD Yes High Blood Pressure: YesDepression: YesAnxiety: YesSleep apnea: YesDo you have a pacemaker or AICD(automatic internal cardiac defibrillator)? NoLatex Allergy No Bariatric Surgery: NoHave you been in close contact with someone who has had MRSA within the last year? NoAre you a healthcare worker? NoAsthma/COPD Yes Respiratory problems: YesDiabetes: YesHigh Blood Pressure: YesDepression: Yes Anxiety: YesSleep apnea: YesCPAP Machine: YesDo you use the CPAP machine? Yes Surgical History Surgery Date(Month/Year) Arthroscopy rright shoulder with RCR and open biceps tendondesis 12/28/2019
--- OUTSIDE RECORDS SUMMARY | 2025-05-08 11:41 | XMS_ITS | Clinical Summary ---
Author Organization [facility] Address [address] [place] [address] Care Team Providers Care Cost Accounting Analyst Name Role Phone Manfred Nuñez MD Primary Care Provider + Allergies No known active allergies Medications MedicationSigDispense QuantityRefillsLast FilledStart DateEnd DateStatus ALPRAZolam (XANAX) 1 MG tablet Take 1 mg by mouth 2 (two) times a day as needed for anxiety. 2 tabs (2mg) qAM, 1 tab qPMActive nebivolol (BYSTOLIC) 10 MG tablet Take 10 mg by mouth daily.Active Active Problems ProblemNoted DateDiagnosed TgxbHtjxvrsexgwl35/21/2015 Assessment & Plan (11/29/2014 11:42 AM EDT): Recent diagnosis, started bystolic 4-5 days prior to admission -continue bystolic. Follow up with primary care in 1 week. Lsqprkt8811/28/2014 Assessment & Plan (11/29/2014 11:43 AM EDT): Chronic. 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 Prescription provided. Alcohol use11/28/2014 Assessment & Plan (11/29/2014 11:48 AM EDT): -uses 3 rum & cokes nightly, no h/o withdrawal. No symptoms of withdrawal while inpatient. Decreasing use advised. Resolved Problems ProblemNoted DateDiagnosed DateResolved DateDVT otzllklpagy94 Family History Medical HistoryRelationCommentsHearing lossMaternal GrandfatherDiabetesPaternal UncleRelationStatusCommentsMaternal GrandfatherPaternal Uncle Social History Tobacco UseTypesPacks/DayYears UsedDateSmoking Tobacco: Every LtzEhqoglqzry401 Tobacco Cessation:Ready to Q uit: No Alcohol UseStandard Drinks/WeekCommentsYes0 (1 standard drink = 0.6 oz pure alcohol)daily: 2-3 rums per daySex and Gender InformationValueDate RecordedSex Assigned at BirthNot on fileLegal WkbQpun3911/28/2013 1:53 PM EDTGender Identity Not on fileSexual OrientationNot on file Last Filed Vital Signs Vital SignReadingTime TakenCommentsBlood Qxcaepag752/8311/29/2014 11:26 AM EDT Gnluc730411/29/2014 11:26 AM YWCEpislmrfayn44.4 ??C (97.6 ??F)11/29/2014 11:26 AM EDTRespiratory Dapr418111/29/2014 11:26 AM EDTOxygen Mzrjfyflvn95%11/29/2014 11:26 AM EDTInhaled Oxygen Concentration--Agwmtl088 kg (242 lb 8.1 oz)11/28/2014 1:05 PM WNMTxulxu843.9 cm (6')11/28/2014 1:05 PM EDTBody Mass Index32.8911/28/2014 1:05 PM EDT Plan of Treatment Not on file Insurance Advance Directives For more information, please contact: [phone] * Full Code (Latest Code Status on File) Date ActivatedDate InactivatedComments11/28/2014 7:59 PM11/29/2014 2:53 PM Care Teams Team MemberRelationshipSpecialtyStart DateEnd Date Manfred Nuñez MD [address] [place] [address] PCP - GeneralFamily Medicine11/28/14
--- OUTSIDE RECORDS SUMMARY | 2025-05-08 11:41 | XMS_ITS | Clinical Summary ---
Author Organization [facility] Address [address] [place] [address] Care Team Providers Care Elevated Motorman Name Role Phone Jignesh Muniz NP Primary Care Provider [phone] Allergies No known active allergies Medications MedicationSigDispense QuantityRefillsLast FilledStart DateEnd DateStatus ammonium lactate (Amlactin) 12 % cream 1 application every 12 (twelve) hours.05/25/2022ctive Jardiance 25 MG 1 (one) time each day at the same timeActive gabapentin (Neurontin) 800 MG tablet every 8 (eight) hoursActive insulin lispro (HumaLOG) 100 UNIT/ML injection 06/10/2022ctive metFORMIN (Glucophage) 500 MG tablet every 8 (eight) hoursActive mupirocin (Bactroban) 2 % ointment 01/18/2022ctive ASPIRIN 81 PO Active ALPRAZolam (Xanax) 1 MG tablet TAKE 1 TABLET BY MOUTH THREE TIMES DAILY FOR 90 DAYSActive albuterol HFA 90 mcg/act inhaler INHALE 1 PUFF BY MOUTH EVERY 6 HOURS NEEDEDActive atorvastatin (Lipitor) 20 MG tablet Take 20 mg by mouth Daily5Active doxepin (SINEquan) 150 MG capsule 1 application as needed Orally at bedtimeActive FLUoxetine (PROzac) 10 MG capsule TAKE 1 CAPSULE BY MOUTH ONCE DAILY FOR 30 DAYS5Active Trelegy Ellipta 100-62.5-25 MCG/ACT aerosol powder INHALE 1 PUFF ONCE DAILY5Active furosemide (Lasix) 20 MG tablet Take 20 mg by mouth DailyActive Lantus SoloStar 100 UNIT/ML pen INJECT 25 UNITS SUBCUTANEOUSLY IN THE MORNING. PRIME PUMP WITH 2 UNITS BEFORE EACH USEActive lisinopril 10 MG tablet Take 10 mg by mouth Daily5Active testosterone cypionate (Depo-Testosterone) 200 MG/ML injection Indications:Secondary male hypogonadismInject 1 mL (200 mg) into the shoulder, thigh, or buttocks every 14 (fourteen) days 6 mL tive Syringe, Disposable, 3 ML misc Indications:Secondary male hypogonadism1 Syringe every 14 (fourteen) days 10 each 5Active Active Problems ProblemNoted DateDiagnosed DateCharcot foot due to diabetes guyzsfmo88/17/2023 Encounters DateTypeDepartmentCare QsrwDtyzrmyegpg43/29/2025 2:10 PM EDTOffice Visit [facility] [address] [place] [address] Kimmie Yarbrough MD 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); Low libido; Encounter for dietary consultation; Class 1 obesity due to excess calories without serious comorbidity with body mass index (BMI) of 34.0 to 34.9 in adult04/08/2025amboo flowsheet [facility] [address] [place] [id number] Kimmie Yarbrough MD from Last 3 Months Family History RelationNameStatusCommentsFatherAliveMotherAlive Social History Tobacco UseTypesPacks/DayYears UsedDateSmoking Tobacco: Every DayCigarettes Tobacco Cessation:Ready to Q uit: Not Asked; Counseling Given: Not Answered Comments:11-20 cigs a day Alcohol UseStandard Drinks/WeekCommentsYes0 (1 standard drink = 0.6 oz pure alcohol)3-4 drinks 4+ times a week. Caffine intake: 2-3 cups per daySex and Gender InformationValueDate RecordedSex Assigned at BirthNot on fileLegal Sex Male09/22/2022 11:46 PM EDTGender IdentityNot on fileSexual OrientationNot on file Last Filed Vital Signs Vital SignReadingTime TakenCommentsBlood Qitapfxm699/7810 12:00 PM EDT Uqgzf338104/08/2025 2:02 PM EDTTemperature--Respiratory Iitf842404/08/2025 2:02 PM EDTOxygen Xluraovder84%04/08/2025 2:02 PM EDTInhaled Oxygen Concentration-- Ccvrsy086 kg (249 lb)04/08/2025 2:02 PM JATFoejmd202.3 cm (5' 11 )04/08/2025 2:02 PM EDTBody Mass Index34.7304/08/2025 2:02 PM EDT Plan of Treatment DateTypeDepartmentCare Team (Latest Contact Info)Ubcvwlaowda83/26/2026 2:30 PM ESTOffice Visit [facility] [address] [place] [address] Kimmie Yarbrough MD [address] [place] [address] Health MaintenanceDue DateLast DoneCommentsCT Nmvyvijwrnzu27/03/1965Colonoscopy 1965Colorectal Cancer Murdrexlh61/03/1965FIT-DNA1964FIT1964 FOBT1964Roqavnkgrmche34/03/1965Influenza Vaccine (#1), 04/28/2022, 04/30/2021 Insurance Care Teams Team MemberRelationshipSpecialtyStart DateEnd Date Jignesh Muniz NP [facility] - [facility]/27/22
--- OUTSIDE RECORDS SUMMARY | 2025-05-08 11:41 | XMS_ITS | Patient Health Record ---
Author Organization [facility] in [place] Address [address] [place] [address] Care Team Providers Care Fuel Cell Technician Name Role Phone None, Unknown or Primary Care Provider Unavailab Nayla Valles Unavailable [phone] Allergies No Known Allergies Results Component Value Reference Range Notes XR foot RT min 3V (Not yet r eviewed by provider) Interpretation: Performing Lab: Notes/Report: Source Facility: [place] [address] XRay Report Signed Patient: GEREMIAS MELCHOR MR#: [id number] : 1965 Acct:[id number] Age/Sex: 58 / M ADM Date: 08/15/24 Loc: RAD Attending Dr: Nayla Chadwick D.P.M. Ordering Physician: Nayla Chadwick D.P.M. Date of Service: 08/15/24 Procedure(s): XR foot RT min 3V Accession Number(s): [id number] cc: Nayla Chadwick D.P.M.; Physician,Non-Staff Z[facility] [place] [address] Patient Name: GEREMIAS MELCHOR MRN: [id number] date: 1965 Sex: M Assigned Patient Location: RAD Current Patient Location: Accession/Order Number: [id number] Exam Date: 08/15/2024 15:20 Report Date: 08/17/2024 [...] Signed By: 08/17/24 1135 DD/ 1133 TD/TT: Technical Sales Director: CA segmental UE or [place] (N ot yet reviewed by provider) Interpretation: Performing Lab: Notes/Report: Source Facility: [place] [address] [place] [address] Cardiology Report Signed Patient: GEREMIAS MELCHOR MR#: [id number] : 1965 Acct:[id number] Age/Sex: 58 / M ADM Date: 10/31/24 Loc: CARD Attending Dr: Rachana GE Ordering Physician: Rachana Jean Date of Service: 10/31/24 Procedure(s): CA segmental UE or [place] Accession Number(s): [id number] cc: Rachana Jean; Physician,Non-Staff Zari [facility] Test Date: 2024-10-31 Pat Name: GEREMIAS MELCHOR Department: Room: - Gender: Male Tiler'S Assistant: : 1965 Requested By: Rachana Jean Order Number: [id number] Kellie MD: RAH MORAN M.D. Interpretive Statements [...] By: RAH MORAN Signed By: 10/31/24180110/31/241801 DD/ 24 TD/TT: Technical Sales Director: XR ankle RT min 3V (Not yet reviewed by provider) Interpretation: Performing Lab: Notes/Report: Source Facility: [place] [address] XRay Report Signed Patient: GEREMIAS MELCHOR MR#: [id number] : 1965 Acct:[id number] Age/Sex: 58 / M ADM Date: 08/15/24 Loc: RAD Attending Dr: Nayla Chadwick D.P.M. Ordering Physician: Nayla Chadwick D.P.M. Date of Service: 08/15/24 Procedure(s): XR ankle RT min 3V Accession Number(s): [id number] cc: Nayla Chadwick D.P.M.; Physician,Non-Staff Zari [place] [address] Patient Name: GEREMIAS MELCHOR MRN: [id number] date: 1965 Sex: M Assigned Patient Location: RAD Current Patient Location: Accession/Order Number: [id number] Exam Date: 08/15/2024 15:20 Report Date: 08/17/2024 [...] Signed By: 08/17/24 1135 DD/ 1133 TD/TT: Technical Sales Director: Reason For Referral No Information Medications Medication SIG (Take, Route, Frequency, Duration) Notes Start Date End Date Status Jardiance ActiveMeloxicamActiveAspirinActiveSildenafil CitrateActiveGabapentinActive FluoxetineActiveLisinoprilActiveMetoprolol SuccinateActiveCholecalciferolActive Atorvastatin CalciumActiveOmeprazoleActiveInsulin LisproActiveThiamine HClActive Doxepin HClActiveALPRAZolamActiveLantusActiveCephalexin 500 MG1 capsule Orally tid; Duration: 14 days5Active Problems Problem Type SNOMED Code ICD Code Onset Dates Problem Status W/U Status Risk Notes Problem Foot ulcer due to ty pe 2 diabetes mellitus (9210905563572) Type 2 diabetes mellitus with foot ulcer (E11.621) ActiveconfirmedProblemAnkle ulcer (046691597)Non-pressure chronic ulcer of right ankle with fat layer exposed (L97.312)ActiveconfirmedProblemNon-pressure chronic ulcer of left heel and midfoot limited to breakdown of skin (L97.421)Active confirmedProblemChronic ulcer of foot (841235684)Non-pressure chronic ulcer of left heel and midfoot with fat layer exposed (L97.422)ActiveconfirmedProblem Chronic ulcer of foot (952646408)Non-pressure chronic ulcer of other part of left foot with fat layer exposed (L97.522)ActiveconfirmedProblemArthropathy associated with a neurological disorder (74920580)Charcot's joint, right ankle and foot (M14.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)ActiveconfirmedProblemArthralgia of the ankle and/or foot (764895879)Pain in right ankle and joints of right foot (M25.571)Activeconfirmed ProblemHypertension (58746522)Hypertension (I10)ActiveconfirmedProblemDiabetes mellitus type 2 (disorder) (00581163)DM2 (diabetes mellitus, type 2) (E11.9) ActiveconfirmedProblemChronic ulcer of foot (221043888)Non-pressure chronic ulcer of right heel and midfoot with fat layer exposed (L97.412)Activeconfirmed ProblemFoot ulcer due to type 2 diabetes mellitus (4425783957503)Diabetes mellitus with foot ulcer due to multiple causes (E11.621)ActiveconfirmedProblem Acquired equinus deformity of foot (93660070)Acquired equinus deformity of foot (M21.6X9)ActiveconfirmedProblemChronic osteomyelitis of right foot (6678982131671307)Chronic osteomyelitis of right foot (M86.671)Activeconfirmed ProblemPolyneuropathy due to type 2 diabetes mellitus (200252394)Diabetes mellitus with diabetic polyneuropathy (E11.42)ActiveconfirmedProblemAnkle ulcer (936657550)Non-healing ulcer of ankle, right, with fat layer exposed (L97.312) ActiveconfirmedProblemAlcohol withdrawal syndrome (051574014)Alcohol withdrawal syndrome (F10.239)ActiveconfirmedProblemHigh cholesterol (16850505)High cholesterol (E78.00)ActiveconfirmedProblemPresence of functional implant (Z96.9) ActiveconfirmedProblemAnkle ulcer (877453261)Non-pressure chronic ulcer of ankle, right, limited to breakdown of skin (L97.311)ActiveconfirmedProblem Localized, primary osteoarthritis of the ankle and/or foot (756394817) Osteoarthritis of ankle and foot, right (M19.071)ActiveconfirmedProblemDiabetic neuropathic arthropathy (554461650)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)ActiveconfirmedProblemChronic osteomyelitis of ankle and/or foot (810303576)Chronic osteomyelitis of right foot with draining sinus (M86.471)ActiveconfirmedProblemNon-pressure chronic ulcer of right heel and midfoot with muscle involvement without evidence of necrosis (L97.415)Active confirmedProblemNon-pressure chronic ulcer of left heel and midfoot with bone involvement without evidence of necrosis (L97.426)ActiveconfirmedProblem Arthropathy associated with a neurological disorder (74091593)Charcot''s joint of right ankle (M14.671)ActiveconfirmedProblemAnkle ulcer (630571062)Ischemic ulcer of right ankle with fat layer exposed (L97.312)ActiveconfirmedProblemAnkle ulcer (075519946)Chronic ulcer of right ankle with fat layer exposed (L97.312) ActiveconfirmedProblemArthritis of right subtalar joint (55215588226637130) 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)ActiveconfirmedProblemChronic ulcer of plantar surface of right midfoot with fat layer exposed (L97.412)Active confirmedProblemAnkle ulcer (771694926)Non-healing ulcer of right ankle with fat layer exposed (L97.312)ActiveconfirmedProblemPlantarflexion deformity of right foot (finding) (2202528579826729)Equinus deformity of right foot (M21.6X1)Active confirmed Encounters Encounter Location Date Provider Diagnosis [facility] [address] [place] [address] 08/15/2024 Nayla [facility] ([facility])[address] [place] [address]/05/2025[facility] M14.671 ; [...] I did discuss potential utilization of a [place] boot which he adamantly declined. Although there is not bony fusion his ankle and hindfoot remained stable and deformity noted radiographically is not significantly appreciated clinically that is his foot on examination remains plantigrade and stable. He will follow- up at minimum every 3 months for surveillance x-rays of his right ankle 08/15/2024Non-pressure chronic ulcer of other part of left foot with fat layer exposed (ICD-10 - L97.522)Patient developed a new ulceration on his left plantar medial foot. There is evidence of cellulitisbut no purulence or evidence of deep space infection. Keflex 500 mg 1 p.o. 3 times daily for 2 weeks was sent to his pharmacy. He is to apply Medihoney with a dry sterile dressing daily after washingthe foot with soap and water. No soaking or submerging. He will follow-up next week in the wound isbctb0708/15/2024ellulitis of left lower limb (ICD-10 - L03.116)08/15/2024Pain in right ankle and joints of right [...] Insured Coverage Start Date Coverage End Date [employer] [address] [place] [address] [id number] [id number] Geremias Melchor Self - patient is the insured 1 MEDICAID [place] [address] [facility] [address] [place], [place] [id number] [id number], Asafelf - patient is the insured Medical (General) History Medical History History ICD Code diabetic neuropathy Surgical History Surgery Date(Month/Year) left ankle fusion left foot recon 023 removal of hardware 06/27/2023
--- OUTSIDE RECORDS SUMMARY | 2025-05-08 11:41 | XMS_ITS | Clinical Summary ---
Author Organization [facility] Address [address], [address] [place] [address] Care Team Providers Care Top Icer Name Role Phone Manfred Muniz MD Primary Care Provider [phone] Allergies No known active allergies Medications MedicationSigDispense QuantityRefillsLast FilledStart DateEnd DateStatus furosemide (LASIX) 20 MG tablet Take 20 mg by mouth dailyActive gabapentin (NEURONTIN) 800 MG tablet Take 800 mg by mouth 3 times daily.Active metFORMIN (GLUCOPHAGE) 500 MG tablet Take 500 mg by mouth three times dailyActive Cyanocobalamin (VITAMIN B-12) 5000 MCG TBDP Take by mouth dailyActive [place]-3 Fatty Acids (FISH OIL) 1200 MG CAPS Take by mouth dailyActive empagliflozin (JARDIANCE) 25 MG tablet Take 25 mg by mouth dailyActive lisinopril (PRINIVIL;ZESTRIL) 5 MG tablet Take 5 mg by mouth dailyActive metoprolol tartrate (LOPRESSOR) 25 MG tablet Take 25 mg by mouth 2 times dailyActive Thiamine HCl (VITAMIN B-1 PO) Take by mouth dailyActive Pyridoxine HCl (VITAMIN B6) 50 MG TABS Take by mouth dailyActive potassium chloride (MICRO-K) 10 MEQ extended release capsule Take 10 mEq by mouth dailyActive aspirin 81 MG EC tablet Take 81 mg by mouth dailyActive atorvastatin (LIPITOR) 10 MG tablet Take 10 mg by mouth nightlyActive albuterol sulfate HFA 108 (90 Base) MCG/ACT inhaler Inhale 2 puffs into the lungs every 6 hours as needed for WheezingActive insulin lispro (HUMALOG) 100 UNIT/ML injection vial Inject 12 Units into the skin 3 times daily (before meals)Active insulin glargine (LANTUS;BASAGLAR) 100 UNIT/ML injection pen Inject 25 Units into the skin dailyActive ketorolac (TORADOL) 10 MG tablet Take 1 tablet by mouth 3 times daily for 5 days 1 tab by mouth 3 times daily 15 tablet 12/28/2019Active Active Problems ProblemNoted DateDiagnosed Date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 12/28/2019 Social History Tobacco UseTypesPacks/DayYears UsedDateSmoking Tobacco: Every DayCigarettes Smokeless Tobacco: NeverAlcohol UseStandard Drinks/WeekCommentsYes0 (1 standard drink = 0.6 oz pure alcohol)3X WEEKLYSex and Gender InformationValueDate RecordedSex Assigned at BirthNot on fileLegal HpmSzzw0112/17/2019 8:42 AM EDT Gender IdentityNot on fileSexual OrientationNot on file Last Filed Vital Signs Vital SignReadingTime TakenCommentsBlood Hmltsnys346/8806 2:30 PM EDT Wqcgk2819 2:30 PM MSSZhporivpcpw70 ??C (98.6 ??F)12/28/2019 2:30 PM EDT Respiratory Mdfx718412/28/2019 2:30 PM EDTOxygen Aseayddgqz46%12/28/2019 2:30 PM EDTInhaled Oxygen Concentration--Ejhjno651.5 kg (248 lb)12/28/2019 8:19 AM EDT Ntsrgw340.9 cm (6')12/28/2019 8:19 AM EDTBody Mass Index33.6306 8:19 AM EDT Plan of Treatment Not on file Medical Devices ImplantedTypeAreaManufacturerDevice IdentifierShelf Expiration DateModel / Serial / LotAnchor Sut Corkscrew Biocomposite 5.5mm Implanted:Qty: 1 on 12/28/2019 [facility] HospitalFastenerRight: ShoulderARTHREX [id number] / / [id number] Suture Swivelock 4.75x19.1 Biocomposite Min 5ea Implanted:Qty: 1 on 12/28/2019 by [facility]ad [facility]ona [facility] HospitalFastenerRight: ShoulderARTHREX [id number] / / [id number] Endoscopic Bicep 2.6x12mm Implanted:Qty: 1 on 12/28/2019 [facility]: ShoulderARTHREX [id number] / / [id number] Insurance Care Teams Team MemberRelationshipSpecialtyStart DateEnd Date Manfred Muniz MD [address] [place] [address] PCP - GeneralInternal Medicine12/21/19
--- OUTSIDE RECORDS SUMMARY | 2025-05-08 11:56 | XMS_ITS | CCD ---
Author Organization [facility] Care Team Providers Care Traffic Rate Analyst Name Role Phone LENKA ROQUE Attending Unavailable [...] Care Physician UnavailEricka Encarnacion Primary Care Physician Unavailab Ericka David Primary Care Provider [phone] Edilberto Zamora Primary Care Physician Edilberto Pendleton Primary Care Physician Ericka Dotson Primary Care Physician UnavailEricka Encarnacion Primary Care Provider [phone] Ericka Muniz Primary Care Physician Unavailab TARIK [...] Ericka Shah Primary Care Physician Unavailab solomon [facility] [place] [facility] [place] P Primary Care Physician Unavai lable Dyana, Franky P Primary Care Physician Unavai lable Dyana, Franky P Primary Care Physician Unavai labsolomon Zamora, Edilberto L Primary Care Physician Unavai labsolomon Zamora, Edilberto L Primary Care Physician Unavai corinne Muniz, Ericka Shah Primary Care Physician Unavailab solomon Dyana, Franky P Primary Care Physician Unavai lable [facility] [place] [facility] [place] P Primary Care Physician Unavai lable [facility] [place] [facility] [place] Yu Primary Care Physician Unavai lable NON STAFF Primary Care Provider UnavailSOLE Short Emergency Provider RADHA Novak Attending Provider [phone] [facility] [place] [facility] [place], CHERYL Yu Attending Provider NON STAFF Primary Care Provider UnavailSOLE Short Emergency Provider [facility] [place] [facility] [place] CHERYL Yu Attending Provider RADHA Novak [facility]ending Provider [facility]ending [facility] [phone] RADHA Novak Attending Provider Edilberto Zamora Primary [...] MD Ericka Muniz Primary Care Provider Gregg, [employer]ACHINE [employer]- Missy Galan Emergency Provider Ericka Muniz Primary Care Physician Unavailab Cinthia Kaba Primary Care Physician Unavailcameron Muniz MD, Ericka Shah Primary Care Provider [phone] Todd BISWAS-C, Ayanna Gutiérrez Attending Provider Ericka Muniz Primary Care Unavailable Mark Upton Admitting Unavailable Mark pUton Attending Unavailable Ericka Muniz Primary Care Unavailable [...] Physician UnavailJignesh Sharpe NP Primary Care Provider KIMMIE YARBROUGH Attending Unavailable Medications Current Medications MedicationDrug Class(es)DatesSig (Normalized)Sig (Original)albuterol sulfate HFA 108 (90 Base) MCG/ACT inhaler (7 sources)take 2 puff(s) by inhalation every six hours as needed for wheezing albuterol sulfate HFA 108 (90 Base) MCG/ACT inhaler Inhale 2 puffs into the lungs every 6 hours as needed for Wheezing 0 Activeaspirin 81 mg oral tablet (20 sources)Platelet Aggregation Inhibitor, Nonsteroidal Anti-inflammatory Drug Start: 58-16-7617yild 1 capsule by mouth once dailyAspirin 81 mg Capsule Active 81 MG PO Daily April 13, 2022 11:00pmASPIRIN 81 PO ActiveASPIRIN 81 PO Aspirin 81 Activetake 1 tablet by mouth once dailytake 1 tablet (81 mg) by oral route once dailyASPIRIN 81 PO Aspirin 81 0 Activeatorvastatin 20 mg oral tablet (20 sources)HMG-CoA Reductase InhibitorStart: 86-72-3334xfxr 1 tablet by mouth once dailyatorvastatin (Lipitor) 20 MG tablet Take 20 mg by mouth Daily 03/13/2025 ActiveStart: 55-29-3641tjce 1 tablet by mouth once dailytake 1 tablet (20 mg) by oral route once dailyStart: 67-94-7850gdss 1 tablet by mouth once dailytake 1 tablet (20 mg) by oral route once dailyStart: 29-51-2027blvg 1 tablet by mouth once dailyAtorvastatin 20 mg tablet Active 20 MG PO Daily August 14, 2024 12:00amStart: 57-96-8267vzrr 1 tablet by mouth once dailytake 1 tablet (20 mg) by oral route once dailyStart: 04-14-2022 End: 38-75-0356bruc 2 tablets by mouth once daily at bedtimeAtorvastatin 10 mg Tablet Discontinued 20 MG PO Daily at bedtime April 13, 2022 11:00pm August 14, 2024 3:16pmStart: 93-92-7561rbay 20 mg by mouth once daily at bedtime Atorvastatin Active 20 MG PO Daily at bedtime April 14, 2022 12:00amStart: 82-75-1855wcbu 10 mg by mouth once daily at bedtimeAtorvastatin Active 10 MG PO Daily at bedtime April 14, 2022 12:00amStart: 53-76-2040tjrm 1 tablet by mouth once daily at bedtimeatorvastatin 10 mg oral tablet 09/03/2021 TAKE ONE TABLET BY MOUTH ONCE DAILY AT BEDTIMEStart: 60-49-8484blgm 1 tablet by mouth once daily at bedtimeatorvastatin 10 mg oral tablet 04/23/2020 TAKE ONE TABLET BY MOUTH ONCE DAILY AT BEDTIMEStart: 48-33-2997yhie 1 tablet by mouth once daily at bedtimeatorvastatin 10 mg oral tablet 08/30/2018 TAKE ONE TABLET BY MOUTH ONCE DAILY AT BEDTIMEStart: 06-03-2015 End: 87-97-0165kivg 1 tablet by mouth once daily at bedtimetake 1 tablet (10 mg) by oral route once daily at bedtimecalcium chloride 0.0014 meq/ml / potassium chloride 0.004 meq/ml / sodium chloride 0.103 meq/ml / sodium lactate 0.028 meq/ml injectable solution (1 source)Start: 59-61-7422rqvavhki ringers infusion2 ml fentaNYL 0.05 mg/ml injection (2 sources)Opioid AgonistStart: 54-71-0045fdqmjSLT (SUBLIMAZE) injection 50 mcg Start: 72-53-7258syrudGEL (SUBLIMAZE) injection 25 mcg30 actuat fluticasone furoate 0.1 mg/actuat / umeclidinium 0.0625 mg/actuat / vilanterol 0.025 mg/ac tuat dry powder inhaler (3 sources)Anticholinergic, Corticosteroid, beta2-Adrenergic AgonistStart: 63-35-6261xbbg 1 puff(s) by inhalation once dailyTrelegy Ellipta 100-62.5-25 MCG/ACT aerosol powder INHALE 1 PUFF ONCE DAILY 11/12/2024 ActiveStart: 13-29-4416Pnacxgbpjra-Umeclidin-Vilanter (Trelegy Ellipta) 100-62.5-25 mcg blister with device Active 1 INH INHALATION Daily 60 August 14, 2024 12:00am gabapentin 800 mg oral tablet (20 sources)Anti-epileptic AgentStart: 11-30-2024 End: 62-15-6281usgd 1 tablet by mouth three times dailyTAKE 1 TABLET BY MOUTH THREE TIMES DAILYStart: 11-30-2021 End: 16-01-0768aksb 1 tablet by mouth three times dailyGabapentin 800 mg Tablet Active 800 MG PO Three times daily April 13, 2022 11:00pmStart: 08-24-2021 End: 88-39-4482navi 1 tablet by mouth three times dailygabapentin 800 mg tablet 08/24/2021 09/23/2021 TAKE 1 TABLET BY MOUTH THREE TIMES DAILYStart: 08-11-2020 End: 92-01-7304uzhi 1 tablet by mouth three times dailygabapentin 800 mg oral tablet 12/23/2020 06/21/2021 TAKE 1 TABLET BY MOUTH THREE TIMES DAILYStart: 07-07-2020 End: 32-45-6223bnzg 1 tablet by mouth three times dailygabapentin 800 mg oral tablet 07/07/2020 08/06/2020 TAKE 1 TABLET BY MOUTH THREE TIMES DAILYStart: 05-15-2020 End: 20-80-6612ldtr 1 tablet by mouth three times dailygabapentin 800 mg oral tablet 05/15/2020 06/14/2020 TAKE 1 TABLET BY MOUTH THREE TIMES DAILYStart: 75-60-2319jsss 1 tablet by mouth three times dailygabapentin 800 mg oral tablet 08/13/2019 TAKE 1 TABLET BY MOUTH THREE TIMES DAILYStart: 06-03-2017 End: 30-40-9374ipwf 1 tablet by mouth three times dailyTAKE ONE TABLET BY MOUTH THREE TIMES DAILYStart: 06-03-2017 End: 63-59-9124xgvt 1 tablet by mouth three times dailyTAKE ONE TABLET BY MOUTH THREE TIMES DAILYStart: 06-03-2017 End: 76-06-4416rwfq 1 tablet by mouth three times dailyTAKE ONE TABLET BY MOUTH THREE TIMES DAILYStart: 06-03-2017 End: 61-61-8088efnx 1 tablet by mouth three times dailyTAKE ONE TABLET BY MOUTH THREE TIMES DAILYStart: 06-03-2017 End: 76-93-9445btbt 1 tablet by mouth three times dailyTAKE ONE TABLET BY MOUTH THREE TIMES DAILYStart: 06-03-2017 End: 74-24-1101krmf 1 tablet by mouth three times dailyTAKE ONE TABLET BY MOUTH THREE TIMES DAILYStart: 06-03-2017 End: 55-74-4703zrwc 1 tablet by mouth three times dailyTAKE ONE TABLET BY MOUTH THREE TIMES DAILYStart: 06-03-2017 End: 64-83-9116kgdn 1 tablet by mouth three times dailyTAKE ONE TABLET BY MOUTH THREE TIMES DAILYStart: 06-03-2017 End: 31-62-3184gizh 1 tablet by mouth three times dailyTAKE ONE TABLET BY MOUTH THREE TIMES DAILYStart: 06-03-2017 End: 87-36-9044swxe 1 tablet by mouth three times dailygabapentin 600 mg oral tablet 06/03/2017 06/03/2017 TAKE ONE TABLET BY MOUTH THREE TIMES DAILYStart: 06-03-2017 End: 11-09-3971psta 1 tablet by mouth three times dailygabapentin 600 mg oral tablet 06/03/2017 06/03/2017 TAKE ONE TABLET BY MOUTH THREE TIMES DAILYStart: 06-03-2017 End: 92-45-2747idmw 1 tablet by mouth three times dailygabapentin 600 mg oral tablet 06/03/2017 06/03/2017 TAKE ONE TABLET BY MOUTH THREE TIMES DAILYStart: 06-03-2017 End: 69-86-7548lsht 1 tablet by mouth three times dailygabapentin 600 mg oral tablet 06/03/2017 06/03/2017 TAKE ONE TABLET BY MOUTH THREE TIMES DAILYStart: 06-03-2017 End: 49-52-7358zyuz 1 tablet by mouth three times dailygabapentin 600 mg oral tablet 06/03/2017 06/03/2017 TAKE ONE TABLET BY MOUTH THREE TIMES DAILYStart: 06-03-2017 End: 08-35-9857anyp 1 tablet by mouth three times dailygabapentin 600 mg oral tablet 06/03/2017 06/03/2017 TAKE ONE TABLET BY MOUTH THREE TIMES DAILYStart: 06-03-2017 End: 53-33-2829hlrq 1 tablet by mouth three times dailygabapentin 600 mg oral tablet 06/03/2017 06/03/2017 TAKE ONE TABLET BY MOUTH THREE TIMES DAILYStart: 06-03-2017 End: 18-08-8603xjam 1 tablet by mouth three times dailygabapentin 600 mg oral tablet 06/03/2017 06/03/2017 TAKE ONE TABLET BY MOUTH THREE TIMES DAILYStart: 06-03-2017 End: 51-96-8844jhcn 1 tablet by mouth three times dailygabapentin 600 mg oral tablet 06/03/2017 06/03/2017 TAKE ONE TABLET BY MOUTH THREE TIMES DAILYStart: 06-03-2017 End: 41-97-4974szve 1 tablet by mouth three times dailygabapentin 600 mg oral tablet 06/03/2017 06/03/2017 TAKE ONE TABLET BY MOUTH THREE TIMES DAILYStart: 06-03-2017 End: 53-17-2325lyxn 1 tablet by mouth three times dailygabapentin 600 mg oral tablet 06/03/2017 06/03/2017 TAKE ONE TABLET BY MOUTH THREE TIMES DAILYStart: 06-03-2017 End: 03-64-1068bqin 1 tablet by mouth three times dailygabapentin 600 mg oral tablet 06/03/2017 06/03/2017 TAKE ONE TABLET BY MOUTH THREE TIMES DAILYStart: 06-03-2017 End: 73-02-8521wbkr 1 tablet by mouth three times dailygabapentin 600 mg oral tablet 06/03/2017 06/03/2017 TAKE ONE TABLET BY MOUTH THREE TIMES DAILYStart: 06-03-2017 End: 24-30-6386rujb 1 tablet by mouth three times dailygabapentin 600 mg oral tablet 06/03/2017 06/03/2017 TAKE ONE TABLET BY MOUTH THREE TIMES DAILYStart: 06-03-2017 End: 09-93-2493fqgy 1 tablet by mouth three times dailygabapentin 600 mg oral tablet 06/03/2017 06/03/2017 TAKE ONE TABLET BY MOUTH THREE TIMES DAILYStart: 06-03-2017 End: 04-90-0194vidg 1 tablet by mouth three times dailygabapentin 600 mg oral tablet 06/03/2017 06/03/2017 TAKE ONE TABLET BY MOUTH THREE TIMES DAILYStart: 06-03-2017 End: 71-91-5514eupe 1 tablet by mouth three times dailygabapentin 600 mg oral tablet 06/03/2017 06/03/2017 TAKE ONE TABLET BY MOUTH THREE TIMES DAILYStart: 06-03-2017 End: 80-51-0386fkeu 1 tablet by mouth three times dailygabapentin 600 mg oral tablet 06/03/2017 06/03/2017 TAKE ONE TABLET BY MOUTH THREE TIMES DAILYStart: 06-03-2017 End: 28-38-0604jhac 1 tablet by mouth three times dailygabapentin 600 mg oral tablet 06/03/2017 06/03/2017 TAKE ONE TABLET BY MOUTH THREE TIMES DAILYStart: 06-03-2017 End: 06-08-4888dddz 1 tablet by mouth three times dailygabapentin 600 mg oral tablet 06/03/2017 06/03/2017 TAKE ONE TABLET BY MOUTH THREE TIMES DAILYStart: 06-03-2017 End: 36-05-2867jlyq 1 tablet by mouth three times dailygabapentin 600 mg oral tablet 06/03/2017 06/03/2017 TAKE ONE TABLET BY MOUTH THREE TIMES DAILYStart: 06-03-2017 End: 89-82-0699fimu 1 tablet by mouth three times dailygabapentin 600 mg oral tablet 06/03/2017 06/03/2017 TAKE ONE TABLET BY MOUTH THREE TIMES DAILYStart: 06-03-2017 End: 19-54-6743kjar 1 tablet by mouth three times dailygabapentin 600 mg oral tablet 06/03/2017 06/03/2017 TAKE ONE TABLET BY MOUTH THREE TIMES DAILYStart: 06-03-2017 End: 52-38-2884ockz 1 tablet by mouth three times dailygabapentin 600 mg oral tablet 06/03/2017 06/03/2017 TAKE ONE TABLET BY MOUTH THREE TIMES DAILYStart: 06-03-2017 End: 48-21-4578qerl 1 tablet by mouth three times dailygabapentin 600 mg oral tablet 06/03/2017 06/03/2017 TAKE ONE TABLET BY MOUTH THREE TIMES DAILYStart: 06-03-2017 End: 73-82-5290rnlw 1 tablet by mouth three times dailygabapentin 600 mg oral tablet 06/03/2017 06/03/2017 TAKE ONE TABLET BY MOUTH THREE TIMES DAILYStart: 06-03-2017 End: 74-39-9018qfkg 1 tablet by mouth three times dailygabapentin 600 mg oral tablet 06/03/2017 06/03/2017 TAKE ONE TABLET BY MOUTH THREE TIMES DAILYStart: 06-03-2017 End: 59-36-0915gwul 1 tablet by mouth three times dailygabapentin 600 mg oral tablet 06/03/2017 06/03/2017 TAKE ONE TABLET BY MOUTH THREE TIMES DAILYStart: 06-03-2017 End: 05-03-9611incn 1 tablet by mouth three times dailygabapentin 600 mg oral tablet 06/03/2017 06/03/2017 TAKE ONE TABLET BY MOUTH THREE TIMES DAILYStart: 06-03-2017 End: 04-68-2058dutf 1 tablet by mouth three times dailygabapentin 600 mg oral tablet 06/03/2017 06/03/2017 TAKE ONE TABLET BY MOUTH THREE TIMES DAILYStart: 06-03-2017 End: 57-26-8847jfml 1 tablet by mouth three times dailygabapentin 600 mg oral tablet 06/03/2017 06/03/2017 TAKE ONE TABLET BY MOUTH THREE TIMES DAILYStart: 06-03-2017 End: 25-95-6270nble 1 tablet by mouth three times dailygabapentin 600 mg oral tablet 06/03/2017 06/03/2017 TAKE ONE TABLET BY MOUTH THREE TIMES DAILYStart: 06-03-2017 End: 87-01-2629hzcd 1 tablet by mouth three times dailygabapentin 600 mg oral tablet 06/03/2017 06/03/2017 TAKE ONE TABLET BY MOUTH THREE TIMES DAILYStart: 06-03-2017 End: 96-32-8639kcjl 1 tablet by mouth three times dailygabapentin 600 mg oral tablet 06/03/2017 06/03/2017 TAKE ONE TABLET BY MOUTH THREE TIMES DAILYStart: 06-03-2017 End: 65-82-4722wqwm 1 tablet by mouth three times dailygabapentin 600 mg oral tablet 06/03/2017 06/03/2017 TAKE ONE TABLET BY MOUTH THREE TIMES DAILYStart: 06-03-2017 End: 95-11-9824iozk 1 tablet by mouth three times dailygabapentin 600 mg oral tablet 06/03/2017 06/03/2017 TAKE ONE TABLET BY MOUTH THREE TIMES DAILYStart: 06-03-2017 End: 17-30-5119qebv 1 tablet by mouth three times dailygabapentin 600 mg oral tablet 06/03/2017 06/03/2017 TAKE ONE TABLET BY MOUTH THREE TIMES DAILYStart: 06-03-2017 End: 10-63-4735gvsn 1 tablet by mouth three times dailygabapentin 600 mg oral tablet 06/03/2017 06/03/2017 TAKE ONE TABLET BY MOUTH THREE TIMES DAILYStart: 06-03-2017 End: 17-55-1103lpzd 1 tablet by mouth three times dailygabapentin 600 mg oral tablet 06/03/2017 06/03/2017 TAKE ONE TABLET BY MOUTH THREE TIMES DAILYStart: 06-03-2017 End: 54-04-6321cbxt 1 tablet by mouth three times dailygabapentin 600 mg oral tablet 06/03/2017 06/03/2017 TAKE ONE TABLET BY MOUTH THREE TIMES DAILYStart: 06-03-2017 End: 70-68-6743kxxl 1 tablet by mouth three times dailygabapentin 600 mg oral tablet 06/03/2017 06/03/2017 TAKE ONE TABLET BY MOUTH THREE TIMES DAILYStart: 06-03-2017 End: 59-40-1636tqep 1 tablet by mouth three times dailygabapentin 600 mg oral tablet 06/03/2017 06/03/2017 TAKE ONE TABLET BY MOUTH THREE TIMES DAILYStart: 06-03-2017 End: 98-91-6262xqgu 1 tablet by mouth three times dailygabapentin 600 mg oral tablet 06/03/2017 06/03/2017 TAKE ONE TABLET BY MOUTH THREE TIMES DAILYStart: 06-03-2017 End: 23-15-7398zwpo 1 tablet by mouth three times dailygabapentin 600 mg oral tablet 06/03/2017 06/03/2017 TAKE ONE TABLET BY MOUTH THREE TIMES DAILYStart: 06-03-2017 End: 48-70-3288bgbj 1 tablet by mouth three times dailygabapentin 600 mg oral tablet 06/03/2017 06/03/2017 TAKE ONE TABLET BY MOUTH THREE TIMES DAILYStart: 06-03-2017 End: 16-45-6275mxza 1 tablet by mouth three times dailygabapentin 600 mg oral tablet 06/03/2017 06/03/2017 TAKE ONE TABLET BY MOUTH THREE TIMES DAILYStart: 06-03-2017 End: 55-94-2876zohe 1 tablet by mouth three times dailygabapentin 600 mg oral tablet 06/03/2017 06/03/2017 TAKE ONE TABLET BY MOUTH THREE TIMES DAILYStart: 06-03-2017 End: 21-38-7545epgg 1 tablet by mouth three times dailygabapentin 600 mg oral tablet 06/03/2017 06/03/2017 TAKE ONE TABLET BY MOUTH THREE TIMES DAILYStart: 06-03-2017 End: 29-32-7067jdlj 1 tablet by mouth three times dailygabapentin 600 mg oral tablet 06/03/2017 06/03/2017 TAKE ONE TABLET BY MOUTH THREE TIMES DAILYStart: 06-03-2017 End: 79-01-1589asva 1 tablet by mouth three times dailygabapentin 600 mg oral tablet 06/03/2017 06/03/2017 TAKE ONE TABLET BY MOUTH THREE TIMES DAILYStart: 06-03-2017 End: 80-58-5086pdss 1 tablet by mouth three times dailygabapentin 600 mg oral tablet 06/03/2017 06/03/2017 TAKE ONE TABLET BY MOUTH THREE TIMES DAILYStart: 06-03-2017 End: 08-37-7254tsth 1 tablet by mouth three times dailygabapentin 600 mg oral tablet 06/03/2017 06/03/2017 TAKE ONE TABLET BY MOUTH THREE TIMES DAILYStart: 06-03-2017 End: 03-20-4169khhl 1 tablet by mouth three times dailygabapentin 600 mg oral tablet 06/03/2017 06/03/2017 TAKE ONE TABLET BY MOUTH THREE TIMES DAILYStart: 03-18-2016 End: 40-86-5025rtzk 1 tablet by mouth three times dailytake 1 tablet (600 mg) by oral route 3 times per daygabapentin (Neurontin) 800 MG tablet every 8 (eight) hours ActiveInsulin Lispro (1 Unit Dial) 100 UNIT/ML Subcutaneous Solution Pen-injector (20 sources)Start: 04-05-2022 End: 68-22-1813Aghffit Lispro (1 Unit Dial) 100 UNIT/ML Subcutaneous Solution Pen-injector 04/05/2022 09/27/2022 INJECT 12 UNITS SUBCUTANEOUSLY WITH MEALS. PRIME WITH 2 UNITS EACH USEStart: 11-24-2021 End: 46-89-0590Wpqpdff Lispro (1 Unit Dial) 100 UNIT/ML Subcutaneous Solution Pen-injector 11/24/2021 04/13/2022 INJECT 12 UNITS SUBCUTANEOUSLY WITH MEALS. PRIME WITH 2 UNITS EACH USEInsulin Lispro 100 unit/mL Insulin Pen (2 sources)Start: 74-46-1056rxrigx 12 [IU] by subcutaneous injection three times dailyInsulin Lispro 100 unit/mL Insulin Pen Active 12 UNIT SUBCUT Three times daily April 13, 2022 11:00pm4 ml labetalol hydrochloride 5 mg/ml cartridge (1 source)beta-Adrenergic BlockerStart: 70-45-3286ulboknytx (NORMODYNE;TRANDATE) injection 5 mgammonium lactate 120 mg/ml topical cream (4 sources)Start: 78-27-9356lmcgfmat lactate (Amlactin) 12 % cream 1 application every 12 (twelve) hours. 05/25/2022 Activelisinopril 10 mg oral tablet (20 sources)Angiotensin Converting Enzyme InhibitorStart: 94-79-9258axgn 1 tablet by mouth once dailylisinopril 10 MG tablet Take 10 mg by mouth Daily 02/04/2025 ActiveStart: 90-71-8701mbtj 1 tablet by mouth once dailyLisinopril 10 mg tablet Active 10 MG PO Daily August 14, 2024 12:00amStart: 65-19-1510zpil 5 mg by mouth once dailyLisinopril Active 5 MG PO Daily April 13, 2022 11:00pmStart: 04-14-2022 End: 35-34-5829oucu 2 tablets by mouth once dailyLisinopril 5 mg Tablet Discontinued 10 MG PO Daily April 13, 2022 11:00pm August 14, 2024 3:16pm Start: 50-24-9664wdph 10 mg by mouth once dailyLisinopril Active 10 MG PO Daily April 14, 2022 12:00amStart: 08-30-2018 End: 87-61-0349wyev 1 tablet by mouth once dailytake 1 tablet (10 mg) by oral route once daily for 90 daysStart: 06-03-2015 End: 06-22-1538ixwv 1 tablet by mouth once dailytake 1 tablet (10 mg) by oral route once dailymetFORMIN hydrochloride 500 mg oral tablet (20 sources)BiguanideStart: 11-26-2024 End: 84-85-8442mieh 1 tablet by mouth three times dailyTAKE 1 TABLET BY MOUTH THREE TIMES DAILYStart: 04-14-2022 End: 83-53-9030jrqj 1 tablet by mouth three times dailyMetformin 500 mg Tablet Active 500 MG PO Three times daily April 13, 2022 11:00pmStart: 09-03-2021 take 1 tablet by mouth three times dailymetformin 500 mg oral tablet 09/03/2021 TAKE ONE TABLET BY MOUTH THREE TIMES DAILYStart: 09-08-2020 End: 06-67-9470offf 1 tablet by mouth three times dailymetformin 500 mg oral tablet 09/08/2020 TAKE ONE TABLET BY MOUTH THREE TIMES DAILYStart: 94-10-2795xhgc 1 tablet by mouth three times dailymetformin 500 mg oral tablet 06/11/2019 TAKE ONE TABLET BY MOUTH THREE TIMES DAILYStart: 08-26-2015 End: 38-33-8961gdpz 1 tablet by mouth twice daily at dinnertake 1 tablet (500 mg) by oral route 2 times per day with morning and evening mealsmetFORMIN (Glucophage) 500 MG tablet every 8 (eight) hours Active2 ml metoclopramide 5 mg/ml prefilled syringe (1 source)Dopamine-2 Receptor AntagonistStart: 12-28-2019 End: 52-91-0505duixlblxjggfha (REGLAN) injection 10 mgomega-3 acid ethyl esters (residential) 1200 mg oral capsule (6 sources)[place]-3 Fatty Acids (FISH OIL) 1200 MG CAPS Take by mouth daily 0 ActiveOmega-3 Fatty Acids (FISH OIL) 1200 MG CAPS (1 source)[place]-3 Fatty Acids (FISH OIL) 1200 MG CAPS Take by mouth daily 0 Active2 ml ondansetron 2 mg/ml injection (1 source)Serotonin-3 Receptor AntagonistStart: 12-28-2019 End: 99-70-2792vbhayldhqiy (ZOFRAN) injection 4 mgoxyCODONE hydrochloride 5 mg oral tablet (2 sources)Opioid AgonistStart: 12-28-2019 End: 75-91-6236wveGEADQN (ROXICODONE) immediate release tablet 5 mgpyridoxine hydrochloride 25 mg oral tablet (3 sources)Start: 06-98-5077nsqk 1 tablet by mouth once dailyPyridoxine (Vitamin B6) 25 mg tablet Active 25 MG PO Daily December 13, 2023 11:00pmsildenafil 100 mg oral tablet (20 sources)Phosphodiesterase 5 InhibitorStart: 84-74-1622Hydzcvfvvv 100 mg tablet Active 100 MG PO As Directed as needed for sexual activity December 02, 2023 11:00pmStart: 45-30-3106Oyczuzgkqd Active MG TABLET December 03, 2023 12:00am Start: 10-28-2023 End: 16-48-6192zdpf 1 tablet by mouth once daily as neededtake 1 tablet (100 mg) by oral route once daily as needed approximately 1 hour before sexual activity for 30 daysStart: 09-03-2021 End: 55-35-8074ibrq 1 tablet by mouth once daily as neededsildenafil 100 mg oral tablet 07/27/2022 10/25/2022 take 1 tablet (100 mg) by oral route once daily as needed approximately 1 hour before sexual activity for 90 daysStart: 02-21-2020 End: 47-45-5891qtqq 1 tablet by mouth once daily as neededsildenafil 100 mg oral tablet 02/21/2020 02/15/2021 take 1 tablet (100 mg) by oral route once daily as needed approximately 1 hour before sexual activity for 90 days3 ml sodium chloride 9 mg/ml injection (2 sources)Start: 33-38-8263iuiyqz chloride flush 0.9 % injection 10 mLSyringe, Disposable, 3 ML misc (2 sources)Start: 04-08-2025 End: 39-61-2382Xzsbwdc, Disposable, 3 ML misc 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 1 Syringe every 14 (fourteen) days 10 each 1 04/08/2025 07/07/2025 Active1 ml testosterone cypionate 200 mg/ml injection (2 sources)AndrogenStart: 04-08-2025 End: 85-62-8632ulxdycyyqvyd cypionate (Depo-Testosterone) 200 MG/ML injection 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 Inject 1 mL (200 mg) into the shoulder, thigh, or buttocks every 14 (fourteen) days 6 mL 04/08/2025 07/07/2025 Active vitamin b6 50 mg oral tablet (20 sources)Start: 03-21-2024 End: 21-90-5643nxvy 1 tablet by mouth once dailyTake 1 tablet by mouth once dailyStart: 11-06-2021 End: 65-46-5537llkc 1 tablet by mouth once dailyTake 1 tablet by mouth once dailyStart: 12-27-2019 End: 12-17-2629zvcw 1 tablet by mouth once dailytake 1 tablet by oral route dailyStart: 12-12-2018 End: 23-43-4629yasi 1 tablet by mouth once dailytake 1 tablet by oral route dailytake 1 tablet by mouth once dailytake 1 tablet by oral route daily Completed/Discontinued Medications MedicationDrug Class(es)DatesSig (Normalized)Sig (Original)acetaminophen 325 mg / HYDROcodone bitartrate 5 mg oral tablet (20 sources)Opioid AgonistStart: 07-13-2017 End: 34-94-5716pbwk 1 tablet by mouth every six hours as needed for paintake 1 tablet by oral route every 6 hours as needed for painacetaminophen 325 mg / oxyCODONE hydrochloride 5 mg oral tablet (1 source)Opioid AgonistStart: 12-28-2019 End: 73-45-3023cfbn 1-2 tablets by mouth every four to six hours as needed for painoxyCODONE-acetaminophen (PERCOCET) 5-325 MG per tablet Indications: 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, initial encounter Take 1-2 tablets by mouth every 4-6 hours as needed for Pain for up to 7 days. 56 tablet 0 12/28/2019 01/04/2020 [id number] 200 actuat albuterol 0.09 mg/actuat metered dose inhaler (20 sources)beta2-Adrenergic AgonistStart: 76-08-8084qovm 1 puff(s) by mouth every six hours as neededINHALE 1 PUFF BY MOUTH EVERY 6 HOURS NEEDEDStart: 19-78-9681Uxvbludtc Sulfate 90 mcg/actuation HFA aerosol inhaler Active 1 INH INHALATION Every 6 hours as needed for shortness of breath or wheezing December 02, 2023 11:00pmStart: 46-95-4601Jirgevvpw Sulfate Active INHALATION December 03, 2023 12:00amStart: 76-23-9664xoho 1 puff(s) by mouth every six hours as neededINHALE 1 PUFF BY MOUTH EVERY 6 HOURS NEEDEDStart: 68-42-3957xexs 1 puff(s) by mouth every six hours as neededVentolin HFA 90 mcg/actuation aerosol inhaler 05/11/2022 INHALE 1 PUFF BY MOUTH EVERY 6 HOURS NEEDEDStart: 00-27-6955dmlz 1 puff(s) by mouth every six hours as neededVentolin HFA 90 mcg/actuation aerosol inhaler 03/06/2021 INHALE 1 PUFF BY MOUTH EVERY 6 HOURS NEEDEDStart: 86-70-7544mdmw 1 puff(s) by mouth every six hours as neededVentolin HFA 90 mcg/actuation inhalation HFA aerosol inhaler 10/20/2020 INHALE 1 PUFF BY MOUTH EVERY6 HOURS NEEDEDStart: 97-44-8536ngmz 1 puff(s) by mouth every six hours as neededVentolin HFA 90 mcg/actuation inhalation HFA aerosol inhaler 04/23/2020 INHALE 1 PUFF BY MOUTH EVERY 6 HOURS NEEDEDStart: 43-95-0917ikkx 1 puff(s) by mouth every six hours as neededVentolin HFA 90 mcg/actuation inhalation HFA aerosol inhaler 03/14/2019 INHALE 1 PUFF BY MOUTH EVERY 6 HOURS NEEDEDStart: 64-83-4962ggfl 1 puff(s) by mouth every six hours as neededVentolin HFA 90 mcg/actuation inhalation HFA aerosol inhaler 10/05/2017 INHALE 1 PUFF BY MOUTH EVERY6 HOURS NEEDEDStart: 09-01-2017 End: 75-11-2400ubsm 1 puff(s) by inhalation every six hours as neededinhale 1 puff (90 mcg) by inhalation route every 6 hours as neededStart: 09-01-2017 End: 42-12-0462rasx 1 puff(s) by inhalation every six hours as neededProAir HFA 90 mcg/actuation inhalation HFA aerosol inhaler 09/01/2017 12/13/2017 inhale 1 puff (90 mcg) by inhalation route every 6 hours as needed duplicatetake 1 puff(s) by mouth every six hours as neededalbuterol HFA 90 mcg/act inhaler INHALE 1 PUFF BY MOUTH EVERY 6 HOURS NEEDED ActiveALPRAZolam 1 mg oral tablet (20 sources)BenzodiazepineStart: 91-24-8639qsyw 1 tablet by mouth three times dailytake 1 tablet (1 mg) by oral route 3 times per day for 90 days..DX: F41.8 Start: 03-11-2021 End: 06-31-3636usch 1 tablet by mouth three times daily as needed for anxiety Alprazolam 1 mg tablet Active 1 MG PO Three times daily as needed for Anxiety August 14, 2024 3:12pmStart: 31-34-5642iziq 1 tablet by mouth three times dailyalprazolam 1 mg oral tablet 08/25/2020 take 1 tablet (1 mg) by oral route 3 times per day for 90 days..DX: F41.8Start: 96-08-9132dsma 1 tablet by mouth three times dailyalprazolam 1 mg oral tablet 02/19/2020 take 1 tablet (1 mg) by oral route 3 times per day for 90 days..DX: F41.8Start: 49-56-3011scdn 1 tablet by mouth three times dailyalprazolam 1 mg oral tablet 08/17/2019 take 1 tablet (1 mg) by oral route 3 times per day for 90 days..DX: F41.8Start: 61-12-4346yaoy 1 tablet by mouth three times dailyalprazolam 1 mg oral tablet 02/08/2019 take 1 tablet (1 mg) by oral route 3 times per day for 90 days..DX: F41.8amitriptyline hydrochloride 50 mg oral tablet (20 sources)Tricyclic Antidepressant End: 54-32-6782pojq 1-2 tablets by mouth once daily at bedtime as neededtake 1-2 tablets by oral route once daily at bedtime as neededamoxicillin 875 mg oral tablet (20 sources)Penicillin-class AntibacterialStart: 06-04-2020 End: 57-61-2781eukn 1 tablet by mouth every twelve hourstake 1 tablet (875 mg) by oral route every 12 hours for 10 daystake 1 tablet by mouth three times daily take 1 tablet (500 mg) by oral route 3 times per day24 hr buPROPion hydrochloride 150 mg extended release oral tablet (20 sources)AminoketoneStart: 12-17-2020 End: 09-16-6580kjxa 1 tablet by mouth once dailytake 1 tablet (150 mg) by oral route once daily for 30 daysStart: 04-23-2020 End: 55-55-6011rvwp 1 tablet by mouth once dailyWellbutrin XL 150 mg oral tablet extended release 24 hr 04/23/2020 10/20/2020 take 1 tablet (150 mg)by oral route once daily for 30 daysStart: 01-10-2020 End: 84-29-3901rcoe 1 tablet by mouth once dailyWellbutrin XL 150 mg oral tablet extended release 24 hr 01/10/2020 03/10/2020 take 1 tablet (150 mg) by oral route once daily for 30 dayscanagliflozin 300 mg oral tablet (20 sources)Sodium-Glucose Cotransporter 2 InhibitorStart: 10-06-2018 End: 19-81-4900rulj 1 tablet by mouth once daily at mealtimeTAKE ONE TABLET BY MOUTH ONCE DAILY BEFORE FIRST MEAL OF THE DAYceFAZolin (ANCEF) 2 g in dextrose 5 % 100 mL IVPB (1 source)Start: 12-28-2019 End: 35-05-7068rqLTDabph (ANCEF) 2 g in dextrose 5 % 100 mL IVPBcephalexin 500 mg oral capsule (4 sources)Cephalosporin AntibacterialStart: 12-03-2023 End: 09-16-4724pyab 1 capsule by mouth four times dailyCephalexin 500 mg capsule Discontinued 500 MG PO Four times daily December 02, 2023 11:00pm August 14, 2024 3:12pmclindamycin 300 mg oral capsule (20 sources)Lincosamide AntibacterialStart: 04-05-2022 End: 52-77-2922tttu 1 capsule by mouth twice dailytake 1 capsule (300 mg) by oral route 2 times per day for 14 days End: 65-60-5088aavr 1 capsule by mouth every six hourstake 1 capsule (300 mg) by oral route every 6 hoursdexamethasone 1 mg oral tablet (20 sources)CorticosteroidStart: 27-02-2111qwvmo 8 am Cortisol after taking 1 mgm Dexamethasone at 11 pmStart: 97-34-0890chrv 8 tablets by mouth in the morning, then take 1 tablet by mouth in the eveningdexamethasone 1 mg oral tablet 11/06/2015 check 8 am Cortisol after taking 1 mgm Dexamethasone at 11pm doxepin hydrochloride 50 mg oral capsule (20 sources)Tricyclic AntidepressantStart: 77-72-5132bxdv 3-4 capsules by mouth at bedtimeTAKE 3 TO 4 CAPSULES BY MOUTH AT BEDTIMEStart: 84-97-2980qbbm 3-4 capsules by mouth at bedtimedoxepin 50 mg capsule 01/12/2022 TAKE 3 TO 4 CAPSULES BY MOUTH AT BEDTIMEStart: 09-15-2021 End: 02-56-7145ysth 3-4 capsules by mouth at bedtimeTAKE 3 TO 4 CAPSULES BY MOUTH AT BEDTIMEStart: 07-13-2021 End: 05-85-5879pjat 3-4 capsules by mouth at bedtimeDoxepin HCl 50 MG Oral Capsule 09/15/2021 10/15/2021 TAKE 3 TO 4 CAPSULES BY MOUTH AT BEDTIMEStart: 06-84-7741jmky 3-4 capsules by mouth at bedtimedoxepin 50 mg oral capsule 03/11/2021 TAKE 3 TO 4 CAPSULES BY MOUTH AT BEDTIMEStart: 19-11-9547ejjg 3-4 capsules by mouth at bedtimedoxepin 50 mg oral capsule 08/05/2020 TAKE 3 TO 4 CAPSULES BY MOUTH AT BEDTIMEStart: 02-20-2020 End: 87-25-6743ofdz 3-4 capsules by mouth at bedtimeDoxepin HCl 50 MG Oral Capsule 05/15/2020 06/07/2020 TAKE 3 TO 4 CAPSULES BY MOUTH AT BEDTIMEStart: 74-91-9298bfeu 3-4 capsules by mouth at bedtimedoxepin 50 mg oral capsule 12/27/2019 TAKE 3 TO 4 CAPSULES BY MOUTH AT BEDTIMEStart: 96-42-0177dajr 3-4 capsules by mouth once daily at bedtimedoxepin 50 mg oral capsule 08/30/2018 take 3-4 capsules (50-100 mg) by oral route once daily at bedtimedoxepin (SINEquan) 150 MG capsule 1 application as needed Orally at bedtime ActiveDULoxetine 60 mg delayed release oral capsule (20 sources)Serotonin and Norepinephrine Reuptake Inhibitor End: 61-76-9969lzyz 1 capsule by mouth once dailytake 1 capsule (60 mg) by oral route once dailyempagliflozin 25 mg oral tablet (20 sources)Sodium-Glucose Cotransporter 2 InhibitorStart: 79-29-8610vgvv 1 tablet by mouth once daily in the morningtake 1 tablet (25 mg) by oral route once daily in the morningStart: 31-33-2991hgtk 1 tablet by mouth once daily Empagliflozin (Jardiance) 25 mg Tablet Active 25 MG PO Daily April 13, 2022 11:00pmStart: 07-44-8358stbn 1 tablet by mouth once daily in the morning Jardiance 25 mg oral tablet 07/21/2020 take 1 tablet (25 mg) by oral route once daily in the morningStart: 14-62-1956mnzt 1 tablet by mouth once daily in the morningJardiance 25 mg oral tablet 08/28/2019 take 1 tablet (25 mg) by oral route once daily in the morningStart: 2015 End: 04-21-7313njbi 1 tablet by mouth once daily in the morningtake 1 tablet (25 mg) by oral route once daily in the morningempagliflozin 25 mg / linagliptin 5 mg oral tablet (20 sources)Dipeptidyl Peptidase 4 Inhibitor, Sodium-Glucose Cotransporter 2 InhibitorStart: 11-05-2015 End: 51-00-0710alsq 1 tablet by mouth once daily in the morningtake 1 tablet by oral route once daily in the morningFish Oil Extra Strength (9 sources)take 2 capsules by mouth once dailytake 2 capsules by oral route dailyFish Oil Extra Strength 435-880 mg oral capsule (20 sources)take 2 capsules by mouth once dailyFish Oil Extra Strength 435-880 mg oral capsule take 2 capsules by oral route dailyFLUoxetine 10 mg oral capsule (15 sources)Serotonin Reuptake InhibitorStart: 79-07-0505pzcc 1 capsule by mouth once dailytake 1 capsule (10 mg) by oral route once daily for 30 daysStart: 46-19-0509Jovcltqsch Active MG December 03, 2023 12:00amStart: 10-93-3547lyll 1 capsule by mouth once dailyFluoxetine 10 mg capsule Active 10 MG PO Daily December 02, 2023 11:00pmStart: 01-25-2023 End: 85-25-1652wuap 1 capsule by mouth once dailytake 1 capsule (10 mg) by oral route once daily for 30 daysfluticasone furoate 0.0275 mg/actuat metered dose nasal spray (20 sources)CorticosteroidStart: 08-05-2020 End: 46-14-2273ltqf 2 puff(s) by inhalation twice dailyinhale 2 puffs by nasal route 2 times a dayfurosemide 20 mg oral tablet (20 sources)Loop DiureticStart: 35-36-6093xsgb 1 tablet by mouth once dailyTAKE 1 TABLET BY MOUTH ONCE DAILYStart: 61-67-7676zfzh 1 tablet by mouth once daily Furosemide 20 mg Tablet Active 20 MG PO Daily April 13, 2022 11:00pmStart: 29-53-3532erlh 1 tablet by mouth once dailyfurosemide 20 mg oral tablet 09/03/2021 TAKE 1 TABLET BY MOUTH ONCE DAILYStart: 04-20-8311shqg 1 tablet by mouth once dailyfurosemide 20 mg oral tablet 10/09/2019 TAKE 1 TABLET BY MOUTH ONCE DAILYStart: 73-53-9605rfwi 1 tablet by mouth once dailyfurosemide 20 mg oral tablet 08/30/2018 TAKE ONE TABLET BY MOUTH ONCE DAILYStart: 08-04-2015 End: 14-76-3624mtbg 1 tablet by mouth once dailytake 1 tablet by oral route daily for 30 daysStart: 06-03-2015 End: 33-71-7813bnip 1 tablet by mouth once dailytake 1 tablet by oral route daily for 30 daysHair,Skin and Nails (9 sources)Start: 02-21-2020 End: 88-12-2177jlep 1 tablet by mouth once dailytake 1 tablet by oral route dailyHair,Skin and Nails oral tablet (20 sources)Start: 71-46-4008yluq 1 tablet by mouth once dailyHair,Skin and Nails oral tablet 02/21/2020 take 1 tablet by oral route dailytake 2 tablets by mouth once dailyHair,Skin and Nails oral tablet take 2 tablets by oral route dailyibuprofen 800 mg oral tablet (5 sources)Nonsteroidal Anti-inflammatory Drug End: 27-16-5327qivc 1 tablet by mouth every six hours as needed for pain ibuprofen (ADVIL;MOTRIN) 800 MG tablet Take 800 mg by mouth every 6 hours as needed for Pain 0 12/28/2019 Discontinued (Stop Taking at Discharge)3 ml insulin detemir 100 unt/ml pen injector (20 sources)Insulin AnalogStart: 10-03-2015 End: 91-34-7891yzzask 25 units at breakfast and at bedtimeStart: 10-03-2015 End: 19-07-7217Vqzmhkl FlexTouch 100 unit/mL (3 mL) subcutaneous insulin pen 10/03/2015 10/03/2015 inject 25 units at breakfast and at bedtime changed to lantus solostar3 ml insulin glargine 100 unt/ml pen injector (20 sources)Insulin AnalogStart: 60-34-9765ltlgyo 2 [IU] by subcutaneous injection once dailyINJECT 25 UNITS SUBCUTANEOUSLY ONCE DAILY IN THE MORNING, PRIME PEN WITH 2 UNITS BEFORE EACH USEStart: 17-63-9798ceybvc 2 [IU] by subcutaneous injection once dailyINJECT 25 UNITS SUBCUTANEOUSLY ONCE DAILY IN THE MORNING, PRIME PEN WITH 2 UNITS BEFORE EACH USEStart: 10-20-0808htujnb 2 [IU] by subcutaneous injection once dailyinject 25 units by subcutaneous route every AM, prime pen with 2 units before each useStart: 78-81-5851iqrzgb 2 [IU] by subcutaneous injection once dailyLantus Solostar U-100 Insulin 100 unit/mL (3 mL) subcutaneous insulin pen 07/27/2022 inject 25 unitsby subcutaneous route every AM, prime pen with 2 units before each useStart: 65-44-7023Msrdmlz Glargine (Lantus Solostar U-100 Insulin) 100 unit/mL (3 mL) Insulin Pen Active 25 UNIT SUBCUT Every morning April 13, 2022 11:00pmStart: 12-30-1339mitbmh 2 [IU] by subcutaneous injection once dailyLantus Solostar U-100 Insulin 100 unit/mL (3 mL) subcutaneous insulin pen 10/26/2021 inject 25 unitsby subcutaneous route every AM, prime pen with 2 units before each useStart: 53-97-4099jnruge 2 [IU] by subcutaneous injection once dailyLantus Solostar U-100 Insulin 100 unit/mL (3 mL) subcutaneous insulin pen 09/03/2021 inject 25 unitsby subcutaneous route every AM, prime pen with 2 units before each useStart: 02-15-2019 End: 74-93-1217ppusvb 25 units every morning, prime pen with 2 units each use Start: 02-15-2019 End: 47-46-7941luqznm 2 [IU] by subcutaneous injection once daily in the morning Basaglar KwikPen U-100 Insulin 100 unit/mL (3 mL) subcutaneous insulin pen 02/15/2019 08/28/2019 inject 25 units every morning, prime pen with 2 units each useStart: 96-12-7225lswjgz 2 [IU] by subcutaneous injection once daily in the morningBasaglar KwikPen U-100 Insulin 100 unit/mL (3 mL) subcutaneous insulin pen 12/12/2018 inject 25 unitsevery morning, prime pen with 2 units each useStart: 11-30-2016 End: 26-89-0143dnftcu 20 units at breakfast and 20 units at bedtimeStart: 11-30-2016 End: 11-49-9365fxernl 20 [IU] by subcutaneous injection at breakfastBasaglar KwikPen 100 unit/mL (3 mL) subcutaneous insulin pen 11/30/2016 12/13/2017 inject 20 units at breakfast and 20 units at bedtimeStart: 03-10-2016 End: 91-69-0358nmrlpc 25 [IU] by subcutaneous injection at breakfastINJECT 25 UNITS SUBCUTANEOUSLY AT BREAKFAST AND BEDTIMEStart: 03-10-2016 End: 08-37-0026Xtcqkj Solostar 100 unit/mL (3 mL) subcutaneous insulin pen 03/10/2016 07/15/2016 INJECT 25 UNITS SUBCUTANEOUSLY AT BREAKFAST AND BEDTIME Per LLS ok to change to BasaglarLantus SoloStar 100 UNIT/ML pen INJECT 25 UNITS SUBCUTANEOUSLY IN THE MORNING. PRIME PUMP WITH 2 UNITS BEFORE EACH USE Active insulin glargine (LANTUS;BASAGLAR) 100 UNIT/ML injection pen Inject 25 Units into the skin daily 0 Active3 ml insulin lispro 100 unt/ml pen injector (20 sources)Insulin AnalogStart: 56-61-0641ncmbow 12 units 3 times daily with meals, prime 2 units each use.Start: 09-21-2022 End: 00-07-6356NOYBZC 12 UNITS SUBCUTANEOUSLY WITH MEALS. PRIME WITH 2 UNITS EACH USEStart: 82-76-4436byjvrqk lispro (HumaLOG) 100 UNIT/ML injection 06/10/2022 ActiveStart: 20-54-5366nxbpjl 12 [IU] by subcutaneous injection three times dailyInsulin Lispro Active 12 UNIT SUBCUT Three times daily April 14, 2022 12:00amStart: 14-62-1626fiuymy 12 [IU] by subcutaneous injection three times dailyInsulin Lispro Active 12 UNIT SUBCUT Three times daily April 13, 2022 11:00pmStart: 08-05-2020 End: 59-67-1097xtbboa 12 units w/meals, prime w/ 2 units each useStart: 08-05-2020 End: 33-43-4794Oktlzjf KwikPen Insulin 100 unit/mL subcutaneous insulin pen 08/05/2020 01/15/2022 inject 12 units w/meals, prime w/ 2 units each useStart: 04-08-2020 End: 54-62-2376JXHIMH 12 UNITS SUBCUTANEOUSLY WITH MEALS --PRIME PEN WITH 2 UNITS EACH USEStart: 14-34-4466epmangc lispro 100 unit/mL subcutaneous insulin pen 10/11/2019 INJECT 12 UNITS SUBCUTANEOUSLY WITH MEALS --PRIME PEN WITH 2 UNITS EACH USEStart: 05-28-2019 End: 17-47-4803scgutj 10 units with each meal, prime pen with 2 units each use. Start: 05-28-2019 End: 70-95-0519Tarlixc KwikPen Insulin 100 unit/mL subcutaneous insulin pen 05/28/2019 11/26/2019 inject 10 units with each meal, prime pen with 2 units each use.Start: 62-51-6992Zyuzoea KwikPen Insulin 100 unit/mL subcutaneous insulin pen 12/12/2018 inject 7 units with each meal, prime pen with 2 units each use. Start: 03-20-2018 End: 08-70-1676nieeub 10 units with each meal and 5 units with snacks,Start: 03-20-2018 End: 45-84-5380Tgweknv U-100 Insulin 100 unit/mL subcutaneous solution 03/20/2018 10/02/2018 inject 10 units with each meal and 5 units with snacks, has not taken since stopoing VGOStart: 11-30-2016 End: 82-79-1332rvijvn 6 units TID with meals. prime pen with 2 units each use. Start: 11-30-2016 End: 85-65-9296Kjkrnfj KwikPen 100 unit/mL subcutaneous insulin pen 11/30/2016 12/13/2017 inject 6 units TID with meals. prime pen with 2 units each use.insulin lispro (HUMALOG) 100 UNIT/ML injection vial Inject 12 Units into the skin 3 times daily (before meals) 0 Activeketorolac tromethamine 10 mg oral tablet (20 sources)Nonsteroidal Anti-inflammatory Drug, Cyclooxygenase InhibitorStart: 02-21-2020 End: 83-17-7660gdbb 1 tablet by mouth every six hours as neededtake 1 tablet (10 mg) by oral route every 6 hours as needed not to exceed 40 mg in 24hrsStart: 12-28-2019 End: 99-50-7260kfxb 1 tablet by mouth three times daily, then take 1 tablet by mouth three times dailyketorolac (TORADOL) 10 MG tablet Take 1 tablet by mouth 3 times daily for 5 days 1 tab by mouth 3 times daily 15 tablet 0 12/28/2019 01/02/2020 ActiveStart: 46-04-9319itcqntkck (TORADOL) injection 30 mgStart: 00-51-5413dvkk 1 tablet by mouth every six hours as neededketorolac 10 mg oral tablet 05/29/2019 take 1 tablet (10 mg) by oral route every 6 hours as needed n ot to exceed 40 mg in 24hrs per taskLantus SoloStar 100 UNIT/ML Subcuta (9 sources)Start: 10-14-2020 End: 91-56-3940btxtrt 2 [IU] by subcutaneous injection once dailyINJECT 25 UNITS SUBCUTANEOUSLY ONCE DAILY IN THE MORNING PRIME PEN WITH 2 UNITS BEFORE EACH USE.Lantus SoloStar 100 UNIT/ML Subcutaneous Solution Pen-injector (20 sources)Start: 10-14-2020 End: 19-41-1359rayqpf 2 [IU] by subcutaneous injection once dailyLantus SoloStar 100 UNIT/ML Subcutaneous Solution Pen-injector 10/14/2020 12/23/2020 INJECT 25 UNITS SUBCUTANEOUSLY ONCE DAILY IN THE MORNING PRIME PEN WITH 2 UNITS BEFORE EACH USE.24 hr levomilnacipran 40 mg extended release oral capsule (20 sources)Serotonin and Norepinephrine Reuptake InhibitorStart: 02-23-2016 End: 30-31-0039lbul 1 capsule by mouth three times dailytake 1 capsule (40 mg) by oral route three times a daylidocaine hydrochloride 40 mg/ml topical cream (20 sources)Antiarrhythmic, Amide Local AnestheticStart: 09-17-2021 End: 71-09-7334bmnus once daily, to top of both feet (midfoot) with occlusive bandage. Discontinue if rash occurs.meloxicam 15 mg oral tablet (20 sources)Nonsteroidal Anti-inflammatory DrugStart: 36-76-0183efrc 1 tablet by mouth once dailytake 1 tablet (15 mg) by oral route once dailyStart: 04-14-2022 take 1 tablet by mouth once dailyMeloxicam 15 mg Tablet Active 15 MG PO Daily April 13, 2022 11:00pmStart: 76-24-4475ofkd 1 tablet by mouth once daily meloxicam 15 mg oral tablet 09/03/2021 take 1 tablet (15 mg) by oral route once dailyStart: 32-32-1196ucmj 1 tablet by mouth once dailymeloxicam 15 mg oral tablet 12/23/2020 take 1 tablet (15 mg) by oral route once dailyStart: 04-23-2020 take 1 tablet by mouth once dailymeloxicam 15 mg oral tablet 04/23/2020 take 1 tablet (15 mg) by oral route once dailyStart: 27-26-2548tkei 1 tablet by mouth once dailymeloxicam 15 mg oral tablet 11/26/2019 take 1 tablet (15 mg) by oral route once dailymethylPREDNISolone 4 mg oral tablet (20 sources)CorticosteroidStart: 03-16-2022 End: 95-27-1165egbu by oral route as directed per package instructions for 6 daysStart: 06-04-2020 End: 78-31-6216hclq as zngofwnl01 hr metoprolol succinate 50 mg extended release oral tablet (20 sources)beta-Adrenergic BlockerStart: 01-08-2052Ouuz 3 tablets (150mg) daily.Start: 81-42-8412Mcerzezaev Succinate 50 mg tablet extended release 24 hr Active 150 MG PO daily August 14, 2024 12:00amStart: 30-74-4050svdc 2 tablets by mouth once dailytake 2 tablets (100 mg) by oral route once dailyStart: 04-14-2022 End: 01-43-5684Ijdbphkhmt Succinate 25 mg Tablet Extended Release 24 Hr Discontinued 50 MG PO Daily April 13, 2022 11:00pm August 14, 2024 3:14pm Start: 77-54-4615oymq 50 mg by mouth once dailyMetoprolol Succinate Active 50 MG PO Daily April 14, 2022 12:00amStart: 25-77-6336aude 25 mg by mouth once dailyMetoprolol Succinate Active 25 MG PO Daily April 13, 2022 11:00pmStart: 10-25-2018 End: 77-52-2292pktj 0.5 tablet by mouth twice dailyTAKE 1/2 (ONE-HALF) TABLET BY MOUTH TWICE DAILYStart: 09-01-2017 End: 88-87-5693ymlj 0.5 tablet by mouth twice dailytake 0.5 tablet by oral route 2 times a day End: 23-83-5222saqn 0.5 tablet by mouth twice dailytake 0.5 tablet by oral route 2 times a daytake 1 tablet by mouth twice dailymetoprolol tartrate (LOPRESSOR) 25 MG tablet Take 25 mg by mouth 2 times daily 0 Activemupirocin 0.02 mg/mg topical ointment (20 sources)RNA Synthetase Inhibitor AntibacterialStart: 01-18-2022 End: 56-39-0234zdxhn a small amount to the 4th by topical route 2 times per day for 14 days, cover with bandageStart: 13-73-2232glmntwgqx (Bactroban) 2 % ointment 01/18/2022 ActiveStart: 09-17-2021 End: 32-71-4815mlzvldkay 2 % topical ointment 09/17/2021 10/01/2021 apply a small amount to the 4th by topical route2 times per day for 14 days, cover with bandageOmega-3 Fatty Acids (Fish Oil) Capsule (8 sources)Start: 04-14-2022 End: 40-31-4237bwtw 1 capsule by mouth once dailyOmega-3 Fatty Acids (Fish Oil) Capsule Discontinued 1000 MG PO Daily April 13, 2022 11:00pm December 03, 2023 3:38pmStart: 04-14-2022 End: 17-78-4793xnul 1 capsule by mouth once dailyOmega-3 Fatty Acids (Fish Oil) Capsule Discontinued 1000 MG PO Daily April 14, 2022 12:00am December 03, 2023 4:38pmStart: 61-00-1845bule 1 capsule by mouth once dailyOmega-3 Fatty Acids (Fish Oil) Capsule Active 1000 MG PO Daily April 13, 2022 11:00pmStart: 05-62-3537rlfe 1 capsule by mouth once dailyOmega-3 Fatty Acids (Fish Oil) Capsule Active 1000 MG PO Daily April 14, 2022 12:00amomeprazole 20 mg delayed release oral capsule (20 sources)Proton Pump InhibitorStart: 07-84-2272lfbd 1 capsule by mouth once daily before mealtimetake 1 capsule (20 mg) by oral route once daily before a meal for 90 daysStart: 08-04-2023 End: 91-52-4713mwnc 1 capsule by mouth once daily before mealtimetake 1 capsule (20 mg) by oral route once daily before a meal for 90 daysStart: 02-17-2022 End: 71-54-7007uusi 1 capsule by mouth once daily before mealtimeomeprazole 20 mg capsule,delayed release 07/27/2022 07/22/2023 take 1 capsule (20 mg) by oral route once daily before a meal for 90 daysStart: 02-21-2020 End: 19-34-4531srdt 1 tablet by mouth once daily as neededtake 1 tablet by oral route daily as needed End: 52-20-9056olxb 1 capsule by mouth once dailytake 1 capsule by oral route dailytake 1 tablet by mouth once dailyPrilosec OTC 20 mg oral tablet,delayed release (DR/EC) take 1 tablet by oral route dailyparking placard 1 (20 sources)Start: 52-11-8438pgjqgqi placard 1 08/30/2018 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 good for 5 yrs until 08/30/23Potassium Chloride (20 sources)Start: 09-09-2021 End: 89-06-1881odgl 1 capsule by mouth once dailyTake 1 capsule by mouth once daily for 30 daysStart: 09-09-2021 End: 08-51-6468gwwm 1 capsule by mouth once dailyPotassium Chloride ER 10 MEQ Oral Capsule Extended Release 09/09/2021 10/09/2021 Take 1 capsule by mouth once daily for 30 daysStart: 08-05-2021 End: 80-24-0071ognw 1 capsule by mouth once dailyPotassium Chloride ER 10 MEQ Oral Capsule Extended Release 08/05/2021 09/04/2021 Take 1 capsule by mouth once daily for 30 daysStart: 08-30-2018 End: 26-44-9377vuhz 1 capsule by mouth once dailytake 1 capsule by oral route dailyStart: 06-03-2015 End: 81-65-1812rdrg 1 capsule by mouth once dailytake 1 capsule (10 meq) by oral route once daily for 30 dayssertraline 50 mg oral tablet (20 sources)Serotonin Reuptake InhibitorStart: 11-26-2019 End: 07-18-9194fwcq 1 tablet by mouth once dailytake 1 tablet (50 mg) by oral route once daily for 30 daysthiamine 50 mg oral tablet (20 sources)Start: 12-27-2019 End: 59-41-1589ajay 1 tablet by mouth once dailyTake 1 tablet by mouth once dailyStart: 12-12-2018 End: 28-94-6219ubdg 1 tablet by mouth once dailytake 1 tablet by oral route dailyThiamine HCl (VITAMIN B-1 PO) Take by mouth daily 0 ActiveVentolin HFA 108 (90 Base) MCG/ACT (9 sources)Start: 02-10-2021 End: 58-52-3459voyh 1 puff(s) by mouth every six hours as neededINHALE 1 PUFF BY MOUTH EVERY 6 HOURS NEEDEDVentolin HFA 108 (90 Base) MCG/ACT Inhalation Aerosol Solution (20 sources)Start: 02-10-2021 End: 56-66-2142wlbg 1 puff(s) by mouth every six hours as neededVentolin HFA 108 (90 Base) MCG/ACT Inhalation Aerosol Solution 02/10/2021 03/19/2021 INHALE 1 PUFF BY MOUTH EVERY 6 HOURS NEEDEDvitamin b12 0.5 mg oral tablet (20 sources)Vitamin K71Zgnkj: 04-17-2019 End: 66-70-3572tief 1 tablet by mouth once dailytake 1 tablet by oral route dailyStart: 70-38-6085dvls 2 tablets by mouth once dailyVitamin B-12 1,000 mcg oral tablet extended release 03/01/2017 take 2 tablets by oral route daily Cyanocobalamin (VITAMIN B-12) 5000 MCG TBDP Take by mouth daily 0 Active Problems Active Problems Problem ClassificationProblemDateDocumented DateEpisodic/Chronic Administrative/social admission (2 sources)Patient encounter status; Translations: [Dietary counseling and surveillance]07-26-2425GwpdclfpYfavnjy-related disorders (20 sources)Alcohol abuse, unspecified; Translations: [Other and unspecified alcohol dependence, unspecified]Onset: 66-80-7326DwoblmpSeuxbhs disorders (20 sources)Anxiety state, unspecified; Translations: [Mixed anxiety and depressive disorder]Onset: 56-95-7208WwcrgbeLsorz (18 sources)Partial thickness burn of toe; Translations: [Burn of second degree of unspecified toe(s) (nail), initial encounter]36-92-9657AagkirtzIesmvba on above:Problem List clean-up per request of Phys. EHR CmteChronic kidney disease (20 sources)Chronic kidney disease, unspecified; Translations: [Chronic kidney disease, unspecified]Onset: 22-45-6249EfsjxiuIteywue obstructive pulmonary disease and bronchiectasis (20 sources)Other emphysema; Translations: [Pulmonary emphysema]Onset: 07-62-6588NcvgxpgUdjrnxx ulcer of skin (20 sources)Non-pressure chronic ulcer of other part of right foot with unspecified severity; Translations: [Non-pressure chronic ulcer of other part of right foot with fat layer exposed]Onset: 56-30-2146EovaubeWzekazjq mellitus with complications (20 sources)Diabetes with neurological manifestations, type II or unspecified type, uncontrolled; Translations:[Diabetes with peripheral circulatory disorders, type II or unspecified type, uncontrolled]Onset: ChronicDiabetes mellitus without complication (20 sources)Diabetes mellitus without mention of complication, type II or unspecified type, not stated as uncontrolled; Translations: [Type 2 diabetes mellitus]Onset: 439861-44-6893BblozmvXawrgpmvn of lipid metabolism (20 sources)Pure hyperglyceridemia; Translations: [Anu type IV hyperlipoproteinemia ]Onset: 979750-10-1670DjtcbhiYnqmksxbmu disorders (20 sources)Gastro-esophageal reflux disease without esophagitisOnset: 10-33-7368MmhpqpwOzcaxrtxl hypertension (20 sources)Benign essential hypertension; Translations: [Malignant essential hypertension]Onset: 41-84-7765ChdhcbrIyrdvdfi cause codes: Fall (20 sources)Unspecified fall; Translations: [Fall]Onset: 06-43-1396Svsyanrpqoqq with complications and secondary hypertension (20 sources)Other unspecified secondary hypertension; Translations: [Hypertension secondary to endocrine disorders]Onset: 98-99-3144QknwwpgGyljpmf and fatigue (20 sources)Other malaise and fatigue; Translations: [Other fatigue]Onset: 52-84-2195QmwywjhbCycg disorders (20 sources)Depressive disorder, not elsewhere classified; Translations: [Depressive disorder]Onset: 60-07-6007HlxjrvzJcwlq aftercare (3 sources)Surgical follow-up; Translations: [Encounter for removal of sutures] 37-30-8615LhhlgjqwHscrg circulatory disease (20 sources)Peripheral vascular disease; Translations: [Other specified peripheral vascular diseases]Onset: 31-44-5920FjdbmgmWfwjm circulatory disease (20 sources)Other specified peripheral vascular diseasesOnset: 01-21-1707Mmkyusg Other endocrine disorders (2 sources)Male hypogonadism; Translations: [Testicular hypofunction]04-08-2025 ChronicOther liver diseases (20 sources)Fatty (change of) liver, not elsewhere classifiedOnset: 01-15-2022 ChronicOther liver diseases (12 sources)Steatosis of liver; Translations: [Other chronic nonalcoholic liver disease]Onset: 72-07-4795ZktamagWjuzc lower respiratory disease (2 sources)Dyspnea; Translations: [Shortness of breath]56-57-7544IfutviikFcsmp male genital disorders (1 source)Impotence of organic originOnset: 25-58-7375KlhopzpTacbd male genital disorders (20 sources)Erectile dysfunction due to diseases classified elsewhereOnset: 34-91-0619UrmzcnnFxmkp nervous system disorders (20 sources)Disorder of the peripheral nervous system; Translations: [Unspecified hereditary and idiopathic peripheral neuropathy]Onset: 04-05-2017 ChronicOther nervous system disorders (20 sources)Unspecified hereditary and idiopathic peripheral neuropathyOnset: 41-96-2108NedbyhkDjhgu nervous system disorders (20 sources)Mononeuritis of unspecified siteOnset: 17-41-1509PtdquyoTuqld nervous system disorders (20 sources)Polyneuropathy in diseases classified elsewhereOnset: 03-31-2016 ChronicOther nervous system disorders (20 sources)Polyneuropathy, unspecified; Translations: [Mononeuritis of unspecified site]Onset: 924619-65-7330FblzwfsWihvn nervous system disorders (8 sources)Neuropathy; Translations: [Polyneuropathy, unspecified]04-14-2022 ChronicOther non-traumatic joint disorders (1 source)Shoulder pain; Translations: [Acute pain of right shoulder]Episodic Other non-traumatic joint disorders (1 source)Pain in right knee; Translations: [Right knee pain, unspecified chronicity]Other nutritional; endocrine; and metabolic disorders (20 sources)Obesity, unspecifiedOnset: 86-40-9008HqzlttyUznpw nutritional; endocrine; and metabolic disorders (20 sources)Morbid obesityOnset: 08-51-5350OizexouNdtxs nutritional; endocrine; and metabolic disorders (20 sources)Obesity, unspecifiedOnset: 20-94-1063LxqhnghXreuo nutritional; endocrine; and metabolic disorders (20 sources)Morbid (severe) obesity due to excess caloriesOnset: 06-03-2015 ChronicOther nutritional; endocrine; and metabolic disorders (20 sources)HypercalcemiaOnset: 87-63-8457NiktfwrOqdgh nutritional; endocrine; and metabolic disorders (2 sources)Obesity caused by energy imbalance; Translations: [Class 1 obesity due to excess calories without serious comorbidity with body mass index (BMI) of 34.0 to 34.9 in adult]41-20-1416MohhaxuBvbdw upper respiratory disease (20 sources)Allergic rhinitis, unspecifiedOnset: 07-63-2572AsoxoqtBrhhm upper respiratory disease (20 sources)Chronic rhinitisOnset: 52-89-6726HduizkcOdbfd upper respiratory infections (20 sources)Chronic frontal sinusitisOnset: 87-72-2878WrjjmiiIodgarjt codes; unclassified (19 sources)Obstructive sleep apnea (adult)(pediatric)Onset: 73-88-4921Mgmrmgj Residual codes; unclassified (20 sources)Obstructive sleep apnea (adult) (pediatric)Onset: 73-89-0228Rmgorwb Residual codes; unclassified (20 sources)Tobacco use; Translations: [Tobacco use disorder]Onset: 08-26-2015 97-77-6900UpmeihrpXpjgmvub codes; unclassified (8 sources)Tobacco use and exposure - finding; Translations: [Tobacco use] 17-61-9665DgjqnwciExhqfmra codes; unclassified (2 sources)Reduced libido; Translations: [Decreased libido]21-79-2764Gnixlpbf Sprains and strains (5 sources)Traumatic rupture of rotator cuff; Translations: [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, initial encounter]Onset: EpisodicSubstance-related disorders (20 sources)Tobacco use disorder; Translations: [Nicotine dependence, unspecified, uncomplicated]Onset: 75-84-2689Sbkhwbi Past or Other Problems Problem ClassificationProblemDateDocumented DateEpisodic/ChronicAbdominal hernia (20 sources)Umbilical hernia without mention of obstruction or gangrene; Translations: [Umbilical hernia]Onset: 23-01-0098AwlvifvvRendvnpyan associated with dizziness or vertigo (20 sources)Dizziness and giddiness; Translations: [Dizziness and giddiness] Onset: 76-56-0857BfjybdpzWmvxkmzc mellitus with complications (20 sources)Type 2 diabetes mellitus with other diabetic neurological complication; Translations: [Diabetes mellitus due to underlying condition with diabetic neuropathic arthropathy]Onset: 06-03-2015E Codes: Fall (20 sources)Fall; Translations: [Unspecified fall]Onset: 69-40-1865HobqsblpVozsv and electrolyte disorders (20 sources)Hypopotassemia; Translations: [Hypokalemia]Onset: 64-70-1347Zgpizlnl Fracture of lower limb (20 sources)Other fracture of right lower leg, initial encounter for closed fracture; Translations: [Fracture of unspecified metatarsal bone(s), right foot, initial encounter for closed fracture]Onset: 091336-56-1475Mhdpnjdy Comment on above:Problem List clean-up per request of Phys. EHR Cmte Immunizations and screening for infectious disease (20 sources)Need for prophylactic vaccination and inoculation against influenza; Translations: [Encounter for immunization]Onset: 29-29-6724SmabqtuaDtgb disorders (20 sources)Major depressive disorder, single episode, unspecified; Translations: [Mood disorders]Onset: 31-94-1266Fqvibnv (20 sources)Onychomycosis due to dermatophyte ; Translations: [Dermatophytosis of nail]Onset: 08-38-8259WjzftguzYafiprnjl of unspecified nature or uncertain behavior (20 sources)Neoplasm of uncertain behavior of skin; Translations: [Neoplasm of uncertain behavior of skin]Onset: 19-43-3412ZeeidnzfNhdychdqdzx chest pain (20 sources)Chest pain, unspecified; Translations: [Chest pain, unspecified] Onset: 64-66-5694OhqzzkbgQeec wounds of extremities (20 sources)Unspecified open wound of unspecified toe(s) with damage to nail, initial encounter; Translations: [Unspecified open wound, right foot, initial encounter]Onset: 29-27-2283MadligsfAfdd wounds of head; neck; and trunk (20 sources)Laceration without foreign body of other part of head, initial encounter; Translations: [Laceration- injury]Onset: 995734-77-4096Javltfnj Other aftercare (13 sources)Encounter for removal of suturesOnset: 52-92-0899VdkgmqxsXvfbg aftercare (20 sources)Encounter for removal of suturesOnset: 94-94-1390NgoqcuahPogtn and unspecified benign neoplasm (19 sources)Benign neoplasm of skin of upper limb, including shoulderOnset: 66-11-7539OtaduqzxXeqzw and unspecified benign neoplasm (20 sources)Other benign neoplasm of skin of left upper limb, including shoulder Onset: 52-94-2923GyexdusgMvroq connective tissue disease (8 sources)Adhesive capsulitis of shoulderOnset: 85-95-5600GydjnxlyIaqpv connective tissue disease (20 sources)Adhesive capsulitis of unspecified shoulderOnset: 28-41-1014Xvycgxsc Other connective tissue disease (20 sources)Pain in left footOnset: 89-08-6647JitmyblzPsioe connective tissue disease (20 sources)Foot pain; Translations: [Pain in limb]Onset: 26-48-8470Guowsjhv Other connective tissue disease (20 sources)Neuralgia and neuritis, unspecifiedOnset: 63-51-8128JsiexrmiIpctk connective tissue disease (20 sources)Pain in right foot; Translations: [PAIN IN RIGHT FOOT]Onset: 01-62-0487AqytxhxvClpem endocrine disorders (20 sources)Endocrine disorder, unspecifiedOnset: 58-42-7913FscomgeaLlhdc fractures (19 sources)Late effect of fracture of spine and trunk without mention of spinal cord lesionOnset: 77-14-6504WljzsfhmYzkrv fractures (20 sources)Multiple fractures of ribs, right side, sequelaOnset: 06-27-2017 EpisodicOther injuries and conditions due to external causes (19 sources)Open wound of face, unspecified site, without mention of complicationOnset: 85-09-9468MrngxdqcGpiil lower respiratory disease (20 sources)Shortness of breathOnset: 02-11-1565JzipkghoMzzvb lower respiratory disease (20 sources)Other respiratory abnormalitiesOnset: 88-05-0290GxwqmyllFqljd lower respiratory disease (19 sources)Respiratory abnormality, unspecifiedOnset: 98-47-2276ZochnseyJxqmw lower respiratory disease (20 sources)Shortness of breath; Translations: [Shortness of breath]Onset: 35-79-2545DxlezwfsFjvgu lower respiratory disease (20 sources)Other forms of dyspneaOnset: 79-84-5484JsqyxeloJjcsp lower respiratory disease (20 sources)SnoringOnset: 08-48-7606LlkiubzkCtaej lower respiratory disease (20 sources)Unspecified abnormalities of breathingOnset: 86-80-8340BtlnhsotKprcd nervous system disorders (14 sources)Disturbance of skin sensationOnset: 24-22-6078EsmztqfuXofhv nervous system disorders (20 sources)Other disturbances of skin sensationOnset: 56-52-0364PcavytovYdsfo non-traumatic joint disorders (20 sources)Pain in right ankle and joints of right foot; Translations: [PAIN IN RIGHT ANKLE]Onset: 09-66-1867ZgvmbbsiCocvz screening for suspected conditions (not mental disorders or infectious disease) (20 sources)Encounter for screening for malignant neoplasm of prostateOnset: 36-76-6339XgajxbpgSbnzy skin disorders (20 sources)Sebaceous cystOnset: 36-31-9813BlfmbuwlOemat skin disorders (20 sources)Unspecified hypertrophic and atrophic conditions of skinOnset: 71-96-8888UduksqrlYifed skin disorders (20 sources)Follicular cyst of the skin and subcutaneous tissue, unspecified Onset: 50-13-1473AgtvghoeWyayx skin disorders (20 sources)Other hypertrophic disorders of the skinOnset: 67-22-5642Fcjqkpwi Other skin disorders (20 sources)Epidermal cystOnset: 90-87-4097RenijzqzLiggl skin disorders (20 sources)Sebaceous cystOnset: 28-87-0726JukcjlniHeqkl skin disorders (20 sources)Foot callus; Translations: [Corns and callosities]Onset: 09-18-2021 EpisodicOther skin disorders (20 sources)Corns and callositiesOnset: 79-40-7793RvcblsgzSjnnb skin disorders (20 sources)Personal history of diseases of the skin and subcutaneous tissue Onset: 35-65-4576IrmjdpqiGqmaxgou codes; unclassified (19 sources)FlushingOnset: 47-90-4656RgsrouirDrndcnur codes; unclassified (15 sources)Other plastic surgery for unacceptable cosmetic appearanceOnset: 38-53-0942KxhejrzuVygeksmp codes; unclassified (20 sources)FlushingOnset: 48-83-3104HpyivnagPcdxdasn codes; unclassified (20 sources)Encounter for cosmetic surgeryOnset: 18-24-7580MpkfdfsaBgsfhmat codes; unclassified (20 sources)Localized edemaOnset: 59-53-2754OhqgyljaTyasivqy codes; unclassified (4 sources)Other specified health statusOnset: 14-00-9076YwpljcqdEljl and subcutaneous tissue infections (20 sources)Abscess of toe of left foot; Translations: [Cellulitis and abscess of toe, unspecified]Onset: 44-69-6992GfiahweaUimiddmugld; intervertebral disc disorders; other back problems (20 sources)Lumbago; Translations: [Low back pain]Onset: 06-31-0310Nfqcasbg Unclassified (20 sources)Anxiety state, unspecifiedOnset: 42-89-8478Vhoufuuxtdly (1 source)Nondependent abuse of drugs; alcohol abuse; unspecifiedOnset: 58-48-6887Cumag infection (20 sources)Viral infection, unspecifiedOnset: 55-00-3286Zuuvziuf Results Test NameValueInterpretationReference RangeFacilityX-ray reportOrdered By: Dionte Torres on 60-07-7149Hlrsi reportLIM[facility] Main [address] [address] XRay Report Signed Patient: Geremias Melchor MR#: [id number] : 1965 Acct:[id number] Age/Sex: 58 / M ADM Date: 5 Loc: RT Room: Type: [facility] CLI Attending Dr: Ayanna Brooks TRACTOR TRAILER TECHNICIAN-C Copies to: BETH Mccabe~ Ordering Provider: BETH [...] Torres Jr., D.O.07/19/2024 4:33 PM Dictation Location: [place] [address] Transcribed By: [facility] 07/19/24 1633 Dictated By: Dionte Torres Jr, DO 07/19/24 1633 Signed By: 07/19/24 1633 [facility]*on 72-27-9828WC chest 2V*[facility] Main [address] [address] XRay Report Signed Patient: Geremias Melchor MR#: [id number] 5 : 1965 Acct:[id number] Age/Sex: 58 / M ADM Date: 07/19/24 Loc: RT Room: Type: [facility] CLI Attending Dr: Ayanna Brooks TRACTOR TRAILER TECHNICIAN-C Copies to: BETH Mccabe Ordering Provider: BETH [...] Torres Jr., D.O.07/19/2024 4:33 PM Dictation Location: [facility]--[facility] Transcribed By: [facility] 07/19/24 1633 Dictated By: Dionte Torres Jr, DO 07/19/24 1633 Signed By: 07/19/24 1633[facility] GroupCardiology Office/Clinic Noteon 29-39-4786Cqzqhisahs Office/Clinic NoteChief Complaint Follow-up visit for hypertension, hypercholesterolemia History [...] He was lightheaded upon standing at times. Hehad shortness of breath and felt like he had no energy. A stress test had been completed that morning and it was negative for stress- induced ischemia, EF 76%. He was cleared for surgery, which was a right ankle and subtalar joint fusion, secondary closure of wound, incision of bone and Achilles tendon myotomy. He was last seen in this office on November 14, 2023 for 6- month follow-up visit. He was doing fairly well [...] that lasts a couple of minutes and canhappen 2-3 times a day. He does not [...] Normal valve structure with no significant stenosis orregurgitation. No significant interval change from 12/29/2020. Stress [...] mildly increased. Working t (more content not included)...[facility] Transthoracicon 42-48-6421Pdvxrio Echocardiogram TransthoracicTRANSTHORACIC ECHOCARDIOGRAM Study Date/Time: Jan 11 2024 3:48PM BP: 148 / 90 HR: 88 bpm HT/WT: 180.3 cm (71 in) / 108.9 kg (239.5 lb) BSA/BMI: 2.28 m^2 / 33.5 kg/m^2 ORDERING PROVIDER: Ayanna Brooks INTERPRETING PHYSICIAN: Bo Pearce DO WOUND/OSTOMY NURSE: Vonda Paige RD, [facility] INDICATIONS: Dyspnea. CONCLUSIONS SUMMARY: 1. Left ventricle: Wall thickness is mildly increased. The calculated ejection fraction is 52%. Left ventricular diastolic function parameters are normal. 2. Otherwise normal chamber dimensions. 3. Normal valve structure with no significant stenosis or regurgitation. 4. Compared to a prior echocardiogram from 12/29/20, there is no significant interval change. STUDY DATA: M-mode, complete 2D, complete spectral Doppler, and color Doppler. Study status: Routine. Patient status: Outpatient. Location: Echo laboratory 4. Procedure: Transthoracic echocardiography was performed. Image quality was adequate. ECG RHYTHM: Sinus rhythm FINDINGS LEFT VENTRICLE: The cavity size is [...] range (greater than or equal to 50%). Measurements Left ventricle Value 12/29/2020 Reference LV [...] 01/13/2024 7:32 am Signed (more content not included)...NormalSt. Charles HospitalComment on above:Order Comment: flacaLaboratory - Chemistry and Chemistry - challengeon 29-53-7973Cneqavk (U) [Mass/Vol]21.2Invalid Interpretation Code<[email or web address] Albumin [Mass/Vol]4.60 g/dLInvalid Interpretation Code 3.7-5.0[place] [employer] [facility] Albumin/Creatinine DL <= 20 mg/L (U) [Mass ratio]43.1 mg/gInvalid Interpretation Code0.0-30.0[place] [facility] [employer] [facility] Albumin/Globulin [Mass ratio]1.3 {ratio}Invalid Interpretation Code1.0-2.4Bsycamore medical center [facility] [employer] [facility] ALP [Catalytic activity/Vol]83.0 U/LInvalid Interpretation Cdpj78-909RpmkmiwbvBlued ALT [Catalytic activity/Vol]51.0 U/LInvalid Interpretation Code0-50LimestoneBlued Anion gap [Moles/Vol]14 mmol/LInvalid Interpretation Tmsz33-08Zabqmnsyg [employer] [facility] AST [Catalytic activity/Vol]41.0 U/LInvalid Interpretation Code0-40[place] [employer] [facility] Bilirubin [Mass/Vol]0.30 mg/dLInvalid Interpretation Code0.0-1.0[place] [facility] [employer] [facility] Bilirubin Ql (U)NegativeInvalid Interpretation Code [email or web address] [facility] Calcium [Mass/Vol]10.40 mg/dLInvalid Interpretation Code8.5-10.8Bsycamore medical center [facility] Chloride [Moles/Vol]102.0 mmol/LInvalid Interpretation Fopo731-891Omdqwnagm [employer] Cholesterol [Mass/Vol]236.0 mg/dLInvalid Interpretation [email or web address] Cholesterol in HDL [Mass/Vol]53.0 mg/dLInvalid Interpretation Oesj8[email or web address] [facility] Cholesterol in LDL [Mass/Vol]146.0 mg/dLInvalid Interpretation Code0-130[place] [facility] [employer] Cholesterol in VLDL [Mass/Vol]37.0 mg/dLInvalid Interpretation [email or web address] Cholesterol.total/Cholesterol in HDL [Mass ratio]4 {ratio}Invalid Interpretation [email or web address] [facility] CO2 [Moles/Vol]25.0 mmol/LInvalid Interpretation Code [email or web address] Creatinine (U) [Mass/Vol]49.20 mg/dLInvalid Interpretation CodeNot Estab. mg/dLBsycamore medical center [place] Creatinine [Mass/Vol]1.10 mg/dLInvalid Interpretation Code0.5-1.5Bsw[facility] medical center edmondsBricsnet Glucose [Mass/Vol]159.0 mg/dLInvalid Interpretation Kbno79-031UhpfvtlobBlued Ketones Ql (U)NegativeInvalid Interpretation Code NegativeLimestoneBlued pH (U)6 [pH]Invalid Interpretation Co[email or web address] Potassium [Moles/Vol]4.40 mmol/LInvalid Interpretation Code3.5-5.3Bswedish medical center edmondsKitman Labs [facility] Protein [Mass/Vol]8.20 g/dLInvalid Interpretation Code 6.3-7.9Bswed[facility] medical center edmondsBricsnet Sodium [Moles/Vol]137.0 mmol/LInvalid Interpretation Zbwc23[email or web address] [facility] Specific gravity (U) [Rel density]1.010Invalid Interpretation Code1.003-1.030[facility]Blued Triglyceride [Mass/Vol]184.0 mg/dLInvalid Interpretation Iotx28-592AluihfvcyBlued Urea nitrogen [Mass/Vol]16.0 mg/dLInvalid Interpretation [email or web address] Urea nitrogen/Creatinine [Mass ratio]15 mg/mgInvalid Interpretation Code6-20LimestoneBlued Urobilinogen (U) [Mass/Vol]normalInvalid Interpretation [email or web address] [facility] Laboratory - Hematology and Cell countson 11-14-2023 Erythrocyte distribution width (RBC) [Ratio]12.60 %Invalid Interpretation Code 11.5-15.5Bhoward young medical centerNoiseFree HbA1c (Bld) [Mass fraction]6.80 %Invalid Interpretation Code4.3-6.3Bsycamore medical center [employer] [facility] [employer] Hematocrit (Bld) [Volume fraction]46.80 %Invalid Interpretation Code[email or web address] Hemoglobin (Bld) [Mass/Vol]15.70 g/dLInvalid Interpretation Co[email or web address] Hemoglobin Ql (U)NegativeInvalid Interpretation Code NegativeGood Samaritan Hospital BlackBridge [facility] MCH (RBC) [Entitic mass]32.80 pgInvalid Interpretation Code25.7-33.8Bsycamore medical center [employer] [facility] [employer] MCHC (RBC) [Mass/Vol]33.50 g/dLInvalid Interpretation [email or web address] MCV (RBC) [Entitic vol]97.70 fLInvalid Interpretation Code81.0-100.2Bswedish medical center edmondsKitman Labs [facility] Platelet mean volume (Bld) [Entitic vol]9.70 fLInvalid Interpretation Code8.3-11.5Bswed[facility] medical center edmondsKit[facility] Labs [facility] Platelets (Bld) [#/Vol]240.0 10*3/uLInvalid Interpretation Vfts609-326FnulvkwkcTheVegibox.com [facility] RBC (Bld) [#/Vol]4.790 10*6/uLInvalid Interpretation Code[email or web address] WBC (Bld) [#/Vol]6.90 10*3/uLInvalid Interpretation Code3.9-10.3Bswedish medical center edmondsKitman Labs [facility] Laboratory - Specimen informationon 49-00-5028Aounesv (U)ClearInvalid Interpretation CodeClearBlanloma linda university [facility] center-[facility] [place] Color (U)yellowInvalid Interpretation Codeyellow [place] [facility] - Urinalysison 76-24-0782Btmpdyh Test strip (U) [Mass/Vol]4+Invalid Interpretation CodeNegativeLimestoneBlued Leukocyte esterase Test strip Ql (U)TraceInvalid Interpretation CodeNegativeLimestoneBlued Nitrite Ql (U)NegativeInvalid Interpretation Code NegativeLimestoneBlued Protein Ql (U)1+Invalid Interpretation CodeNegative [employer] No Panel Informationon 15-81-3123389.0 mg/dLInvalid Interpretation CodeMyHealthTeams 77Invalid Interpretation CodeLimestoneBlued No Panel Informationon 38-35-1327Hsvapfu smoking status Current Tobacco UserInvalid Interpretation CodeMyHealthTeams Diabetic Retinal Eye ExamInvalid Interpretation Code [employer] Physician Orderon 10-62-5369Pomhtghlj Order [id number]#1.00TIFFNormalFisher Johns Hopkins HospitalLaboratory - Chemistry and Chemistry - challengeon 95-87-4039Yaatcxw (U) [Mass/Vol]< 12.0Invalid Interpretation Code< 17.0 ug/mLMyHealthTeams Albumin [Mass/Vol]4.50 g/dLInvalid Interpretation Code 3.7-5.0[facility] Albumin/Globulin [Mass ratio]1.4 {ratio}Invalid Interpretation Code1.0-2.4Bswedish medical center edmondsKitman Labs [facility] ALP [Catalytic activity/Vol]93.0 U/LInvalid Interpretation Wbvw07-442UgjajjncuBlued ALT [Catalytic activity/Vol]62.0 U/LInvalid Interpretation Code0-50LimestoneBlued Anion gap [Moles/Vol]16 mmol/LInvalid Interpretation Zips06-91ByrakpofnBlued AST [Catalytic activity/Vol]46.0 U/LInvalid Interpretation Code0-40LimestoneBlued Bilirubin [Mass/Vol]0.40 mg/dLInvalid Interpretation Code0.0-1.0[facility]Blued Bilirubin Ql (U)NegativeInvalid Interpretation Code NegativeLimestoneBlued Calcium [Mass/Vol]10.20 mg/dLInvalid Interpretation Code8.5-10.8[facility] edmondsBricsnet Chloride [Moles/Vol]99.0 mmol/LInvalid Interpretation Rpkn035-508XojnuivolBlued Cholesterol [Mass/Vol]212.0 mg/dLInvalid Interpretation Code0-200[facility]Bl[facility] Cholesterol in HDL [Mass/Vol]49.0 mg/dLInvalid Interpretation Fgyk08-811QybqkuqhuMyHealthTeams Cholesterol in LDL [Mass/Vol]135.0 mg/dLInvalid Interpretation Code0-130LimestoneBlued Cholesterol in VLDL [Mass/Vol]28.0 mg/dLInvalid Interpretation Code0-39[facility] Cholesterol.total/Cholesterol in HDL [Mass ratio]4 {ratio}Invalid Interpretation [email or web address] [facility] CO2 [Moles/Vol]26.0 mmol/LInvalid Interpretation Code [email or web address] [facility] Creatinine (U) [Mass/Vol]75.30 mg/dLInvalid Interpretation CodeNot Estab. mg/dLBsycamore medical center [employer] [facility] Creatinine [Mass/Vol]1.10 mg/dLInvalid Interpretation Code0.5-1.5Bsycamore medical center [employer] [facility] Glucose [Mass/Vol]111.0 mg/dLInvalid Interpretation Pyct65-361SaagbifqcTheVegibox.com [facility] Ketones Ql (U)NegativeInvalid Interpretation Code Neg[email or web address] [facility] pH (U)6 [pH]Invalid Interpretation Code5.[email or web address] [facility] Potassium [Moles/Vol]4.70 mmol/LInvalid Interpretation Code3.5-5.3B[facility] edmondsBricsnet Prostate specific Ag [Mass/Vol]0.94 ng/mLInvalid Interpretation Code[email or web address] [facility] Protein [Mass/Vol]7.80 g/dLInvalid Interpretation Code 6.3-7.9B[facility] edmondsKitman Labs [facility] Sodium [Moles/Vol]136.0 mmol/LInvalid Interpretation Qbav075-307JedlcijmeBlued Specific gravity (U) [Rel density]1.015Invalid Interpretation Code1.003-1.030[facility]Blued Triglyceride [Mass/Vol]141.0 mg/dLInvalid Interpretation Yzeo82-697DpitabzyxBlued Urea nitrogen [Mass/Vol]20.0 mg/dLInvalid Interpretation Code7-25LimestoneBlued Urea nitrogen/Creatinine [Mass ratio]18 mg/mgInvalid Interpretation Code6-20LimestoneBlued Urobilinogen (U) [Mass/Vol]normalInvalid Interpretation [email or web address] [facility] Laboratory - Hematology and Cell countson 01-25-2023 Erythrocyte distribution width (RBC) [Ratio]12.10 %Invalid Interpretation Code 11.5-15.5Bs[facility] [place] HbA1c (Bld) [Mass fraction]6.60 %Invalid Interpretation Code4.3-6.3Bsycamore medical center [place] Hematocrit (Bld) [Volume fraction]43.70 %Invalid Interpretation Code37.8-51.0Lim[facility]Blued Hemoglobin (Bld) [Mass/Vol]14.90 g/dLInvalid Interpretation Code12.6-17.0[facility]Blued Hemoglobin Ql (U)NegativeInvalid Interpretation Code NegativeLimestoneBlued MCH (RBC) [Entitic mass]32.50 pgInvalid Interpretation Code25.7-33.8B[facility] edmondsBricsnet MCHC (RBC) [Mass/Vol]34.10 g/dLInvalid Interpretation Code32.0-36.0[facility]estoneBlued MCV (RBC) [Entitic vol]95.40 fLInvalid Interpretation Code81.0-100.2B[facility] young medical centerNoiseFree Platelet mean volume (Bld) [Entitic vol]9.20 fLInvalid Interpretation Code8.3-11.5Bsw[facility] center edmondsBricsnet Platelets (Bld) [#/Vol]225.0 10*3/uLInvalid Interpretation Xnxg947-207Ingzlnqok [place] [facility] RBC (Bld) [#/Vol]4.580 10*6/uLInvalid Interpretation Code4.34-5.61[facility] WBC (Bld) [#/Vol]8.0 10*3/uLInvalid Interpretation Code 3.9-10.3BK[facility] Laboratory - Specimen informationon 94-49-2099Gckicih (U)ClearInvalid Interpretation CodeClearBKettering Health Behavioral Medical Center [facility] Color (U)yellowInvalid Interpretation Codeyellow [facility] Laboratory - Urinalysison 96-49-3509Ixmtjrz Test strip (U) [Mass/Vol]4+Invalid Interpretation CodeNegativeGood Samaritan Hospital [facility] Leukocyte esterase Test strip Ql (U)NegativeInvalid Interpretation CodeNegativeGood Samaritan Hospital [facility] Nitrite Ql (U)NegativeInvalid Interpretation Code NegativeGood Samaritan Hospital [facility] Protein Ql (U)NegativeInvalid Interpretation Code NegativeGood Samaritan Hospital [facility] No Panel Informationon [id number] Interpretation CodeGood Samaritan Hospital [facility] 143.0 mg/dLInvalid Interpretation Code[place] [employer] [facility] No Panel Informationon 48-13-3702Cmpobqc smoking status Current Tobacco UserInvalid Interpretation [email or web address] [facility] Laboratory - Chemistry and Chemistry - challengeon [id number]-urrsolwhcuxjxi D3 [Mass/Vol]26.8 ng/mLInvalid Interpretation Code 30.0-100.0LimestoneBlued Albumin (U) [Mass/Vol]< 12.0Invalid Interpretation Code < 17.0 ug/mLLimestoneBlued Albumin [Mass/Vol]4.50 g/dLInvalid Interpretation Code 3.7-5.0Lim[facility]Blued Albumin/Globulin [Mass ratio]1.3 {ratio}Invalid Interpretation Code1.0-2.4B[facility] center edmondsBricsnet ALP [Catalytic activity/Vol]74.0 U/LInvalid Interpretation Qyku65-372RmdarmqtmBlued ALT [Catalytic activity/Vol]24.0 U/LInvalid Interpretation Code0-50LimestoneBlued Anion gap [Moles/Vol]16 mmol/LInvalid Interpretation Bqni98-91JkpzsabkjBlued AST [Catalytic activity/Vol]14.0 U/LInvalid Interpretation Code0-40LimestoneBlued Bilirubin [Mass/Vol]0.30 mg/dLInvalid Interpretation Code0.0-1.0[facility]Blued Bilirubin Ql (U)NegativeInvalid Interpretation Code NegativeLimestoneBlued Calcium [Mass/Vol]10.20 mg/dLInvalid Interpretation Code8.5-10.8B[facility] center edmondsBricsnet Chloride [Moles/Vol]96.0 mmol/LInvalid Interpretation Fqcj953-729WqwsagneeBlued Cholesterol [Mass/Vol]218.0 mg/dLInvalid Interpretation Code0-200LimestoneBlued Cholesterol in HDL [Mass/Vol]41.0 mg/dLInvalid Interpretation Biwy26-879Rmndloklu [place] Cholesterol in LDL [Mass/Vol]139.0 mg/dLInvalid Interpretation Code0-130[facility] [employer] Cholesterol in VLDL [Mass/Vol]38.0 mg/dLInvalid Interpretation Code0-39[place] [employer] [facility] Cholesterol.total/Cholesterol in HDL [Mass ratio]5 {ratio}Invalid Interpretation [email or web address] [facility] CO2 [Moles/Vol]26.0 mmol/LInvalid Interpretation Code 23-30[place] [employer] [facility] Creatinine (U) [Mass/Vol]41.10 mg/dLInvalid Interpretation CodeNot Estab. mg/dLBsycamore medical center [employer] [facility] Creatinine [Mass/Vol]1.0 mg/dLInvalid Interpretation Code0.5-1.5Bsycamore medical center [employer] [facility] GFR/1.73 sq M.predicted among non-blacks MDRD (S/P/Bld) [Vol rate/Area]77 mL/min/{1.73_m2}Invalid Interpretation [email or web address] [facility] Glucose [Mass/Vol]134.0 mg/dLInvalid Interpretation Fkfq3[email or web address] [facility] Ketones Ql (U)NegativeInvalid Interpretation Code Neg[email or web address] [facility] Parathyrin.intact [Mass/Vol]24 pg/mLInvalid Interpretation Bfew68-11GvqtnpmvoBlued pH (U)6.5 [pH]Invalid Interpretation Code5.0-9.0 [place] Phosphate [Mass/Vol]3.60 mg/dLInvalid Interpretation Code2.5-4.5BKettering [facility] legalPAD [facility] Potassium [Moles/Vol]4.60 mmol/LInvalid Interpretation Code3.5-5.3BPro[facility] Protein [Mass/Vol]7.90 g/dLInvalid Interpretation Code 6.3-7.9BPro[facility]ica [facility] Sodium [Moles/Vol]133.0 mmol/LInvalid Interpretation Jpxu330-444YfnggytxzC[facility] Specific gravity (U) [Rel density]1.005Invalid Interpretation Code1.003-1.030[facility] Triglyceride [Mass/Vol]190.0 mg/dLInvalid Interpretation Phfl76-765Ybyuoquxb [place] legalPAD [facility] Urea nitrogen [Mass/Vol]23.0 mg/dLInvalid Interpretation Code7-25[facility] Urea nitrogen/Creatinine [Mass ratio]23 mg/mgInvalid Interpretation Code6-20[facility] Urobilinogen (U) [Mass/Vol]normalInvalid Interpretation CodenormalGood Samaritan Hospital legalPAD [facility] Laboratory - Hematology and Cell countson 07-27-2022 HbA1c (Bld) [Mass fraction]6.70 %Invalid Interpretation Code4.3-6.3BKettering [facility] legalPAD [facility] Hemoglobin Ql (U)NegativeInvalid Interpretation Code NegativeGood Samaritan Hospital [facility] Laboratory - Specimen informationon 97-40-8401Ahqbvwa (U)clearInvalid Interpretation CodeClearBKettering Health Behavioral Medical Center [facility] Color (U)yellowInvalid Interpretation Codeyellow [facility] - Urinalysison 39-38-3168Uthsmdf Test strip (U) [Mass/Vol]4+Invalid Interpretation CodeNegativeLimestoneBlued Leukocyte esterase Test strip Ql (U)NegativeInvalid Interpretation CodeNegativeLimestoneBlued Nitrite Ql (U)NegativeInvalid Interpretation Code NegativeLimestoneBlued Protein Ql (U)NegativeInvalid Interpretation Code NegativeLimestoneBlued No Panel Informationon 54-52-2717Cpce mass index (BMI) [Percentile] Per age and sex0.1 {percentile}Invalid Interpretation CodeLimestoneBlued 817-5059Ghbstk-yat-length Per age and sex0.1 {percentile} Invalid Interpretation CodeLimestoneBlued 146.0 mg/dLInvalid Interpretation CodeLimestoneBlued Patient did NOT bring meterInvalid Interpretation Code 70-117Lim[facility]Blued Laboratory - Chemistry and Chemistry - challengeon 09-05-0624Rapkzno (U) [Mass/Vol]17.1Invalid Interpretation Code<17.0LimestoneBlued Albumin [Mass/Vol]4.80 g/dLInvalid Interpretation Code 3.7-5.0LimestoneBlued Albumin/Creatinine DL <= 20 mg/L (U) [Mass ratio]26.8 mg/gInvalid Interpretation Code0.0-30.0LimestoneBlued Albumin/Globulin [Mass ratio]1.7 {ratio}Invalid Interpretation Code1.0-2.4Bsycamore medical center [place] ALP [Catalytic activity/Vol]65.0 U/LInvalid Interpretation Lveh58-919KrohptpvjBlued ALT [Catalytic activity/Vol]51.0 U/LInvalid Interpretation Code0-50[facility] Anion gap [Moles/Vol]13 mmol/LInvalid Interpretation Wjjs88-84Lwwlyagqg [place] [facility] AST [Catalytic activity/Vol]30.0 U/LInvalid Interpretation Code0-40[facility] Bilirubin [Mass/Vol]0.50 mg/dLInvalid Interpretation Code0.0-1.0[place] [employer] [facility] Calcium [Mass/Vol]10.80 mg/dLInvalid Interpretation Code8.5-10.8BKettering [facility] Chloride [Moles/Vol]99.0 mmol/LInvalid Interpretation Wwnf029-410Qjlhkeivz [place] [facility] Cholesterol [Mass/Vol]214.0 mg/dLInvalid Interpretation Code0-200[place] [employer] [facility] Cholesterol in HDL [Mass/Vol]57.0 mg/dLInvalid Interpretation Xlsn01-154DlhyiptkyTheVegibox.com [facility] Cholesterol in LDL [Mass/Vol]133.0 mg/dLInvalid Interpretation Code[email or web address] [facility] Cholesterol in VLDL [Mass/Vol]24.0 mg/dLInvalid Interpretation Code0-39[place] [employer] [facility] Cholesterol.total/Cholesterol in HDL [Mass ratio]4 {ratio}Invalid Interpretation [email or web address] [facility] CO2 [Moles/Vol]30.0 mmol/LInvalid Interpretation Code [email or web address] [facility] Creatinine (U) [Mass/Vol]63.80 mg/dLInvalid Interpretation CodeNot Estab. mg/dLBsycamore medical center [place] Creatinine [Mass/Vol]1.10 mg/dLInvalid Interpretation Code0.5-1.5Bsw[facility] medical center edmondsBricsnet GFR/1.73 sq M.predicted among non-blacks MDRD (S/P/Bld) [Vol rate/Area]69 mL/min/{1.73_m2}Invalid Interpretation CodeBlnorth central bronx hospitalBlued Glucose [Mass/Vol]128.0 mg/dLInvalid Interpretation Fnbv52-979YgebaaodpBlued Potassium [Moles/Vol]4.60 mmol/LInvalid Interpretation Code3.5-5.3Bsw[facility] medical center edmondsBricsnet Prostate specific Ag [Mass/Vol]0.85 ng/mLInvalid Interpretation Code[email or web address] [facility] Protein [Mass/Vol]7.60 g/dLInvalid Interpretation Code 6.3-7.9[facility] centerNoiseFree Sodium [Moles/Vol]137.0 mmol/LInvalid Interpretation Mtrw991-674QpfbeatruBlued Triglyceride [Mass/Vol]120.0 mg/dLInvalid Interpretation Lyov17-657KgaoidjnvTheVegibox.com [facility] Urea nitrogen [Mass/Vol]16.0 mg/dLInvalid Interpretation Code7-25LimestoneBlued Urea nitrogen/Creatinine [Mass ratio]15 mg/mgInvalid Interpretation Code6-20[facility] Laboratory - Hematology and Cell countson 02-17-2022 HbA1c (Bld) [Mass fraction]6.50 %Invalid Interpretation Code4.3-6.3B[facility] young medical centerNoiseFree No Panel Informationon 03-51-0056341.0 mg/dLInvalid Interpretation CodeLimestoneBlued Laboratory - Chemistry and Chemistry - challengeon 45-83-5866Wfwmxlr (U) [Mass/Vol]< 12.0Invalid Interpretation Code< 17.0 ug/mL [facility] Albumin [Mass/Vol]4.70 g/dLInvalid Interpretation Code 3.7-5.0LimestoneBlued Albumin/Globulin [Mass ratio]1.6 {ratio}Invalid Interpretation Code1.0-2.4Bsycamore medical center [place] ALP [Catalytic activity/Vol]66.0 U/LInvalid Interpretation Qicy69-813GzppzhzvgBlued ALT [Catalytic activity/Vol]38.0 U/LInvalid Interpretation Code0-50LimestoneBlued Anion gap [Moles/Vol]15 mmol/LInvalid Interpretation Ibec80-97UqnasbamlBlued AST [Catalytic activity/Vol]23.0 U/LInvalid Interpretation Code0-40LimestoneBlued Bilirubin [Mass/Vol]0.40 mg/dLInvalid Interpretation [email or web address] [facility] Bilirubin Ql (U)NegativeInvalid Interpretation Code [email or web address] [facility] Calcium [Mass/Vol]10.40 mg/dLInvalid Interpretation Code8.5-10.8Bsycamore medical center [place] Chloride [Moles/Vol]101.0 mmol/LInvalid Interpretation Sxzm576-518YxfhjtbjiBlued CO2 [Moles/Vol]28.0 mmol/LInvalid Interpretation Code 23-30[facility] Creatinine (U) [Mass/Vol]60.60 mg/dLInvalid Interpretation CodeNot Estab. mg/dLBKettering Health Behavioral Medical Center [facility] Creatinine [Mass/Vol]1.10 mg/dLInvalid Interpretation Code0.5-1.5BKettering Health Behavioral [facility] Gamma glutamyl transferase [Catalytic activity/Vol]62 U/LInvalid Interpretation Code7-51[place] [employer] [facility] GFR/1.73 sq M.predicted among non-blacks MDRD (S/P/Bld) [Vol rate/Area]69 mL/min/{1.73_m2}Invalid Interpretation CodeGood Samaritan Hospital [facility] Glucose [Mass/Vol]116.0 mg/dLInvalid Interpretation Vgvy54-024Dfxjmbvwz [place] [facility] Ketones Ql (U)1+Invalid Interpretation CodeNegative [facility] pH (U)6 [pH]Invalid Interpretation Code5.0-9.0[place] [employer] [facility] Potassium [Moles/Vol]4.80 mmol/LInvalid Interpretation Code3.5-5.3Bsycamore medical center [employer] [facility] Protein [Mass/Vol]7.70 g/dLInvalid Interpretation Code 6.3-7.9Bsycamore medical center [employer] [facility] Sodium [Moles/Vol]139.0 mmol/LInvalid Interpretation Giuk57[email or web address] [facility] Specific gravity (U) [Rel density]1.010Invalid Interpretation Code1.003-1.030[place] [employer] [facility] Urea nitrogen [Mass/Vol]17.0 mg/dLInvalid Interpretation Cod[email or web address] [facility] Urea nitrogen/Creatinine [Mass ratio]15 mg/mgInvalid Interpretation [email or web address] [facility] Urobilinogen (U) [Mass/Vol]normalInvalid Interpretation CodenormalGood Samaritan Hospital [facility] Laboratory - Hematology and Cell countson 01-15-2022 Erythrocyte distribution width (RBC) [Ratio]12.50 %Invalid Interpretation Code 11.5-15.5Bsycamore medical center [employer] [facility] HbA1c (Bld) [Mass fraction]6.60 %Invalid Interpretation Code4.3-6.3Bsycamore medical center [employer] [facility] Hematocrit (Bld) [Volume fraction]49.80 %Invalid Interpretation Code37.[email or web address] [facility] Hemoglobin (Bld) [Mass/Vol]16.40 g/dLInvalid Interpretation Code12.[email or web address] [facility] Hemoglobin Ql (U)NegativeInvalid Interpretation Code [email or web address] [facility] MCH (RBC) [Entitic mass]31.90 pgInvalid Interpretation Code25.7-33.8B[facility] edmondsKitman Labs [facility] MCHC (RBC) [Mass/Vol]32.90 g/dLInvalid Interpretation Code32.[email or web address] [facility] MCV (RBC) [Entitic vol]96.90 fLInvalid Interpretation Code81.0-100.2Bsw[facility] center edmondsBricsnet Platelet mean volume (Bld) [Entitic vol]9.30 fLInvalid Interpretation Code8.3-11.5Bswed[facility] medical center edmondsBricsnet Platelets (Bld) [#/Vol]216.0 10*3/uLInvalid Interpretation Ycnf250-873Dahypyjik [place] [facility] RBC (Bld) [#/Vol]5.140 10*6/uLInvalid Interpretation Code4.34-5.61[facility] WBC (Bld) [#/Vol]7.30 10*3/uLInvalid Interpretation Code3.9-10.3BKet[facility] Laboratory - Specimen informationon 49-48-8522Vctdmbt (U)clearInvalid Interpretation CodeClearBKettering Health Behavioral Medical Center [facility] Color (U)yellowInvalid Interpretation Codeyellow [facility] Laboratory - Urinalysison 25-06-2212Ulgecfx Test strip (U) [Mass/Vol]4+Invalid Interpretation CodeNegativeGood Samaritan Hospital [facility] Leukocyte esterase Test strip Ql (U)NegativeInvalid Interpretation CodeNegativeGood Samaritan Hospital [facility] Nitrite Ql (U)NegativeInvalid Interpretation Code NegativeGood Samaritan Hospital [facility] Protein Ql (U)NegativeInvalid Interpretation Code NegativeGood Samaritan Hospital [facility] No Panel Informationon 50-39-7092542.0 mg/dLInvalid Interpretation CodeGood Samaritan Hospital [facility] Glucose Meter Check NOT PerformedInvalid Interpretation Jlfy18-168Djczlffhm [employer] [facility] Laboratory - Chemistry and Chemistry - challengeon [id number] [Mass/Vol]4.70 g/dLInvalid Interpretation Code3.7-5.0[place] [employer] [facility] Albumin/Globulin [Mass ratio]1.7 {ratio}Invalid Interpretation Code1.0-2.4Bsycamore medical center [employer] [facility] ALP [Catalytic activity/Vol]62.0 U/LInvalid Interpretation Deon01-039Fxgojqbco [place] ALT [Catalytic activity/Vol]57.0 U/LInvalid Interpretation Code0-50[place] Anion gap [Moles/Vol]16 mmol/LInvalid Interpretation Vffh73-05Kxeyhwqhw [place] AST [Catalytic activity/Vol]33.0 U/LInvalid Interpretation Code0-40LimestoneBlued Bilirubin [Mass/Vol]0.40 mg/dLInvalid Interpretation Code0.0-1.0LimestoneBlued Calcium [Mass/Vol]10.20 mg/dLInvalid Interpretation Code8.5-10.8Bsycamore medical center [place] Chloride [Moles/Vol]99.0 mmol/LInvalid Interpretation Ytqe304-067FjsethakzBlued Cholesterol [Mass/Vol]217.0 mg/dLInvalid Interpretation Code0-200LimestoneBlued Cholesterol in HDL [Mass/Vol]49.0 mg/dLInvalid Interpretation Wmdb96-282SrwqahzgaBlued Cholesterol in LDL [Mass/Vol]131.0 mg/dLInvalid Interpretation Code0-130LimestoneBlued Cholesterol in VLDL [Mass/Vol]37.0 mg/dLInvalid Interpretation Code0-39LimestoneBlued Cholesterol.total/Cholesterol in HDL [Mass ratio]4 {ratio}Invalid Interpretation CodeLimestoneBlued CO2 [Moles/Vol]28.0 mmol/LInvalid Interpretation Code 23-30LimestoneBlued Creatinine [Mass/Vol]1.10 mg/dLInvalid Interpretation Code0.5-1.5Bsw[facility] medical center edmondsKitman Labs [facility] Gamma glutamyl transferase [Catalytic activity/Vol]98 U/LInvalid Interpretation Code7-51[place] [employer] [facility] GFR/1.73 sq M.predicted among non-blacks MDRD (S/P/Bld) [Vol rate/Area]69 mL/min/{1.73_m2}Invalid Interpretation [email or web address] [facility] Glucose [Mass/Vol]127.0 mg/dLInvalid Interpretation Ntow06-336SljeozcjjTheVegibox.com [facility] Potassium [Moles/Vol]4.40 mmol/LInvalid Interpretation Code3.5-5.3Bsycamore medical center [employer] [facility] Protein [Mass/Vol]7.50 g/dLInvalid Interpretation Code 6.3-7.9Bsw[facility] center edmondsKitman Labs [facility] Sodium [Moles/Vol]139.0 mmol/LInvalid Interpretation Eodt061-644KfiakagigTheVegibox.com [facility] Triglyceride [Mass/Vol]186.0 mg/dLInvalid Interpretation Vquf80-974FkqllkzzcTheVegibox.com [facility] Urea nitrogen [Mass/Vol]19.0 mg/dLInvalid Interpretation Cod[email or web address] [facility] Urea nitrogen/Creatinine [Mass ratio]17 mg/mgInvalid Interpretation Code6-20LimestoneBlued Laboratory - Hematology and Cell countson 08-18-2021 Erythrocyte distribution width (RBC) [Ratio]12.60 %Invalid Interpretation Code 11.5-15.5B[facility] young medical centerCircle Biologics [facility] HbA1c (Bld) [Mass fraction]6.20 %Invalid Interpretation Code4.3-6.3BKet[facility] legalPAD [facility] Hematocrit (Bld) [Volume fraction]48.40 %Invalid Interpretation Code37.8-51.0[facility] legalPAD [facility] Hemoglobin (Bld) [Mass/Vol]16.10 g/dLInvalid Interpretation Code12.6-17.0[facility] legalPAD [facility] MCH (RBC) [Entitic mass]32.40 pgInvalid Interpretation Code25.7-33.8BKet[facility] legalPAD [facility] MCHC (RBC) [Mass/Vol]33.30 g/dLInvalid Interpretation Code32.0-36.0[facility] legalPAD [facility] MCV (RBC) [Entitic vol]97.40 fLInvalid Interpretation Code81.0-100.2BKet[facility] legalPAD [facility] Platelet mean volume (Bld) [Entitic vol]10.10 fLInvalid Interpretation Code8.3-11.5BKet[facility] Platelets (Bld) [#/Vol]214.0 10*3/uLInvalid Interpretation Upga845-503Njeceobrk [place] [facility] RBC (Bld) [#/Vol]4.970 10*6/uLInvalid Interpretation Code4.34-5.61[facility] legalPAD [facility] WBC (Bld) [#/Vol]5.90 10*3/uLInvalid Interpretation Code3.9-10.3BKet[facility] No Panel Informationon 88-90-2051980.0 mg/dLInvalid Interpretation CodeGood Samaritan Hospital [facility] No Specimen, Unable to VoidInvalid Interpretation Code [facility] No Panel Informationon 16-50-3333Pjqdudix Retinal Eye ExamInvalid Interpretation CodeMyHealthTeams Laboratory - Chemistry and Chemistry - challengeon [id number] [Mass/Vol]4.60 g/dLInvalid Interpretation Code3.7-4.5BMOOI Albumin/Globulin [Mass ratio]1.4 {ratio}Invalid Interpretation Code1.0-2.4Bhow[facility] young medical centerNoiseFree ALP [Catalytic activity/Vol]75.0 U/LInvalid Interpretation Ropr77-144PusgbwzlkMyHealthTeams ALT [Catalytic activity/Vol]41.0 U/LInvalid Interpretation Code0-50[facility] Anion gap [Moles/Vol]14 mmol/LInvalid Interpretation Orih05-98CyzminukhMyHealthTeams AST [Catalytic activity/Vol]26.0 U/LInvalid Interpretation Code0-40[employer] Bilirubin [Mass/Vol]0.40 mg/dLInvalid Interpretation Code0.0-1.0[facility] Bilirubin Ql (U)NegativeInvalid Interpretation Code NegativeMyHealthTeams Calcium [Mass/Vol]10.10 mg/dLInvalid Interpretation Code8.5-10.8BMOOI Chloride [Moles/Vol]99.0 mmol/LInvalid Interpretation Jhlm928-935ObqkmgqdpEssence Group Holdings CO2 [Moles/Vol]28.0 mmol/LInvalid Interpretation Code 23-30[employer] Creatinine [Mass/Vol]0.90 mg/dLInvalid Interpretation Code0.5-1.5BMOOI GFR/1.73 sq M.predicted among non-blacks MDRD (S/P/Bld) [Vol rate/Area]87 mL/min/{1.73_m2}Invalid Interpretation CodeGood [facility]itan Hospital [facility] Glucose [Mass/Vol]135.0 mg/dLInvalid Interpretation Rsxo04-838Sxetwntbz [place] Ketones Ql (U)NegativeInvalid Interpretation Code Negative[place] [employer] [facility] Parathyrin.intact [Mass/Vol]22 pg/mLInvalid Interpretation Tdsq96-79YzitnevokBlued pH (U)6 [pH]Invalid Interpretation Code5.0-9.0[place] [employer] [facility] Phosphate [Mass/Vol]3.50 mg/dLInvalid Interpretation Code2.5-4.5Bs[facility] [employer] [facility] Potassium [Moles/Vol]4.50 mmol/LInvalid Interpretation Code3.5-5.3Bsycamore medical center [place] Protein [Mass/Vol]7.80 g/dLInvalid Interpretation Code 6.3-7.9Bsycamore medical center [employer] [facility] Sodium [Moles/Vol]136.0 mmol/LInvalid Interpretation Gvfz266-653ZjhfogsbtTheVegibox.com [facility] Specific gravity (U) [Rel density]1.015Invalid Interpretation Code1.003-1.030LimestoneBlued Urea nitrogen [Mass/Vol]15.0 mg/dLInvalid Interpretation Code7-25LimestoneBlued Urea nitrogen/Creatinine [Mass ratio]17 mg/mgInvalid Interpretation Code6-20LimestoneBlued Urobilinogen (U) [Mass/Vol]normalInvalid Interpretation [email or web address] [facility] Laboratory - Hematology and Cell countson 03-19-2021 Erythrocyte distribution width (RBC) [Ratio]12.80 %Invalid Interpretation Code 11.5-15.5Bsw[facility] medical center edmondsBricsnet HbA1c (Bld) [Mass fraction]6.40 %Invalid Interpretation Code4.3-6.3Bsycamore medical center [employer] [facility] Hematocrit (Bld) [Volume fraction]49.0 %Invalid Interpretation Code37.8-51.0LimestoneBlued Hemoglobin (Bld) [Mass/Vol]16.60 g/dLInvalid Interpretation Code12.6-17.0LimestoneBlued Hemoglobin Ql (U)NegativeInvalid Interpretation Code [email or web address] [facility] MCH (RBC) [Entitic mass]32.10 pgInvalid Interpretation Code25.7-33.8B[facility] young medical centerNoiseFree MCHC (RBC) [Mass/Vol]33.90 g/dLInvalid Interpretation Code[email or web address] [facility] MCV (RBC) [Entitic vol]94.80 fLInvalid Interpretation Code81.0-100.2Bhoward young medical centerCircle Biologics [facility] Platelet mean volume (Bld) [Entitic vol]9.60 fLInvalid Interpretation Code8.3-11.5BMOOI Platelets (Bld) [#/Vol]257.0 10*3/uLInvalid Interpretation Cpzu279-041JjukqnbzpBlued RBC (Bld) [#/Vol]5.170 10*6/uLInvalid Interpretation Code4.34-5.61BlMyHealthTeams WBC (Bld) [#/Vol]6.90 10*3/uLInvalid Interpretation Code3.9-10.3BKettering [facility] Laboratory - Specimen informationon 78-26-3985Reekbwf (U)clearInvalid Interpretation CodeClearBKettering Health Behavioral Medical Center [facility] Color (U)yellowInvalid Interpretation Codeyellow [facility] legalPAD [facility] - Urinalysison 91-88-6396Fizdpzu Test strip (U) [Mass/Vol]4+Invalid Interpretation CodeNegativeGood Samaritan Hospital [facility] Leukocyte esterase Test strip Ql (U)NegativeInvalid Interpretation CodeNegativeGood Samaritan Hospital [facility] Nitrite Ql (U)NegativeInvalid Interpretation Code NegativeGood Samaritan Hospital [facility] Protein Ql (U)NegativeInvalid Interpretation Code NegativeLimestoneVestagen Technical Textiles [place] [facility] No Panel Informationon 44-47-0216221.0 mg/dLInvalid Interpretation [email or web address] [facility] patient's meter broke and doesn't have new one yet Invalid Interpretation Kpay24-850Iofrjflto [place] [facility]Bridge [facility] Laboratory - Chemistry and Chemistry - challengeon 09-80-2318Khxewvz (U) [Mass/Vol]< 12.0Invalid Interpretation Code< 17.0 ug/mL [place] [employer] [facility] Albumin [Mass/Vol]4.40 g/dLInvalid Interpretation Code 3.7-4.5Bsycamore medical center [employer] [facility] Albumin/Globulin [Mass ratio]1.5 {ratio}Invalid Interpretation Code1.0-2.4Bsycamore medical center [employer] [facility] ALP [Catalytic activity/Vol]69.0 U/LInvalid Interpretation Vcda32-736Obppcaavv [place] ALT [Catalytic activity/Vol]30.0 U/LInvalid Interpretation Code0-50[place] Anion gap [Moles/Vol]13 mmol/LInvalid Interpretation Ggxv83-21Lmtvviosl [place] AST [Catalytic activity/Vol]20.0 U/LInvalid Interpretation Code0-40[place] Bilirubin [Mass/Vol]0.40 mg/dLInvalid Interpretation Code0.0-1.0LimestoneTheVegibox.com [facility] Bilirubin Ql (U)NegativeInvalid Interpretation Code NegativeLimestoneTheVegibox.com [facility] Calcium [Mass/Vol]9.80 mg/dLInvalid Interpretation Code 8.5-10.8Bsy[facility] medical [facility] [employer] [facility] Chloride [Moles/Vol]98.0 mmol/LInvalid Interpretation Bkat202-368MfpfjaqceBlued Cholesterol [Mass/Vol]207.0 mg/dLInvalid Interpretation Code0-200LimestoneTheVegibox.com [facility] Cholesterol in HDL [Mass/Vol]40.0 mg/dLInvalid Interpretation Iuhl07-221LlvalfknpTheVegibox.com [facility] Cholesterol in LDL [Mass/Vol]100.0 mg/dLInvalid Interpretation Code0-130LimestoneBlued Cholesterol in VLDL [Mass/Vol]67.0 mg/dLInvalid Interpretation Code0-39LimestoneBlued Cholesterol.total/Cholesterol in HDL [Mass ratio]5 {ratio}Invalid Interpretation CodeLimestoneBlued CO2 [Moles/Vol]29.0 mmol/LInvalid Interpretation Code 23-30LimestoneTheVegibox.com [facility] Creatinine (U) [Mass/Vol]31.90 mg/dLInvalid Interpretation CodeNot Estab. mg/dLBsycamore medical center [employer] [facility] [employer] [facility] Creatinine [Mass/Vol]1.0 mg/dLInvalid Interpretation Code0.5-1.5Bsycamore medical center [employer] [facility] GFR/1.73 sq M.predicted among non-blacks MDRD (S/P/Bld) [Vol rate/Area]77 mL/min/{1.73_m2}Invalid Interpretation CodeLimestoneBlued Glucose [Mass/Vol]113.0 mg/dLInvalid Interpretation Xire56-437RnuflgdxcBlued Ketones Ql (U)NegativeInvalid Interpretation Code NegativeLimestoneBlued pH (U)6 [pH]Invalid Interpretation Code5.0-9.0LimestoneTheVegibox.com [facility] Potassium [Moles/Vol]4.40 mmol/LInvalid Interpretation Code3.5-5.3Bsycamore medical center [facility] [employer] [facility] Prostate specific Ag [Mass/Vol]0.76 ng/mLInvalid Interpretation Code0.00-4.00LimestoneTheVegibox.com [facility] Protein [Mass/Vol]7.30 g/dLInvalid Interpretation Code 6.3-7.9Bsy[facility]ore medical center [place] Sodium [Moles/Vol]136.0 mmol/LInvalid Interpretation Vfyz135-864MpujkembaBlued Specific gravity (U) [Rel density]1.005Invalid Interpretation Code1.003-1.030LimestoneBlued Triglyceride [Mass/Vol]334.0 mg/dLInvalid Interpretation Rkfh39-641Gffdoxvaj [employer] [facility] Urea nitrogen [Mass/Vol]15.0 mg/dLInvalid Interpretation Code7-25[place] [employer] [facility] Urea nitrogen/Creatinine [Mass ratio]15 mg/mgInvalid Interpretation Code6-20[place] [employer] [facility] Urobilinogen (U) [Mass/Vol]normalInvalid Interpretation CodenormalS[place] [facility] [employer] [facility] Laboratory - Hematology and Cell countson 12-23-2020 Erythrocyte distribution width (RBC) [Ratio]12.90 %Invalid Interpretation Code 11.5-15.5Bsycamore medical center [facility] [employer] [facility] HbA1c (Bld) [Mass fraction]6.30 %Invalid Interpretation Code4.3-6.3Bsycamore medical center [employer] [facility] Hematocrit (Bld) [Volume fraction]48.0 %Invalid Interpretation Code37.8-51.0LimestoneTheVegibox.com [facility] Hemoglobin (Bld) [Mass/Vol]16.40 g/dLInvalid Interpretation Code12.6-17.0LimestoneTheVegibox.com [facility] Hemoglobin Ql (U)NegativeInvalid Interpretation Code Neg[email or web address] [facility] MCH (RBC) [Entitic mass]32.20 pgInvalid Interpretation Code25.7-33.8B[facility] medical center edmondsKitman Labs [facility] MCHC (RBC) [Mass/Vol]34.20 g/dLInvalid Interpretation Code32.0-36.0LimestoneTheVegibox.com [facility] MCV (RBC) [Entitic vol]94.10 fLInvalid Interpretation Code81.0-100.2Bswedish medical center edmondsBricsnet Platelet mean volume (Bld) [Entitic vol]9.30 fLInvalid Interpretation Code8.3-11.5Bsycamore medical center [employer] [facility] Platelets (Bld) [#/Vol]265.0 10*3/uLInvalid Interpretation Rnjd115-214Gcosgbfxa [place] [facility] RBC (Bld) [#/Vol]5.10 10*6/uLInvalid Interpretation Code4.34-5.61[facility] WBC (Bld) [#/Vol]7.30 10*3/uLInvalid Interpretation Code3.9-10.3Bsycamore medical center [employer] [facility] Laboratory - Specimen informationon 99-47-6017Gyzuaiv (U)clearInvalid Interpretation CodeClearBKettering Health Behavioral Medical Center [facility] Collection time (Andrei) [Date/time]10:56 amInvalid Interpretation CodeS[place] [facility] [employer] [facility] Color (U)yellowInvalid Interpretation Codeyellow [facility] Laboratory - Urinalysison 43-40-3821Ybccfpn Test strip (U) [Mass/Vol]4+Invalid Interpretation CodeNegativeGood [facility]aritan Hospital [facility] Leukocyte esterase Test strip Ql (U)NegativeInvalid Interpretation CodeNegativeGood [facility]aritan Hospital [facility] Nitrite Ql (U)NegativeInvalid Interpretation Code NegativeS[place] [employer] Protein Ql (U)NegativeInvalid Interpretation Code NegativeLimestoneTheVegibox.com [facility] No Panel Informationon 52-90-1606866.0 mg/dLInvalid Interpretation CodeLimestoneTheVegibox.com [facility] Laboratory - Chemistry and Chemistry - challengeon 51-04-7430Wqqxpuu/Globulin [Mass ratio]1.2 {ratio}Invalid Interpretation Code 1.0-2.4Bhoward young medical centerCircle Biologics [facility] Bilirubin Ql (U)NegativeInvalid Interpretation Code NegativeLimestoneBlued Ketones Ql (U)NegativeInvalid Interpretation Code NegativeLimestoneBlued Urobilinogen (U) [Mass/Vol]normalInvalid Interpretation CodenormalLimestoneTheVegibox.com [facility] Laboratory - Urinalysison 89-51-1957Rjkuylcyb esterase Test strip Ql (U)NegativeInvalid Interpretation CodeNegativeLimestoneTheVegibox.com [facility] Nitrite Ql (U)NegativeInvalid Interpretation Code NegativeLimestoneTheVegibox.com [facility] Protein Ql (U)NegativeInvalid Interpretation Code NegativeLimestoneTheVegibox.com [facility] Metabolic Panelon 45-11-0845Cweksyb [Mass/Vol]4.40 g/dL Invalid Interpretation Code3.7-4.5B[facility] young medical centerCircle Biologics [facility] ALP [Catalytic activity/Vol]81.0 U/LInvalid Interpretation Hkpu08-125UkrvklnbaTheVegibox.com [facility] ALT [Catalytic activity/Vol]57.0 U/LInvalid Interpretation Code0-50LimestoneTheVegibox.com [facility] Anion gap [Moles/Vol]13 mmol/LInvalid Interpretation Urnn65-02YfeeefrceBlued AST [Catalytic activity/Vol]36.0 U/LInvalid Interpretation Code0-40MyHealthTeams Bilirubin [Mass/Vol]0.60 mg/dLInvalid Interpretation Code0.0-1.0LimestoneBlued Calcium [Mass/Vol]11.0 mg/dLInvalid Interpretation Code 8.5-10.8BMOOI Chloride [Moles/Vol]97.0 mmol/LInvalid Interpretation Bghb534-931AajqwecbpBlued CO2 [Moles/Vol]27.0 mmol/LInvalid Interpretation Code 23-30LimestoneBlued Creatinine [Mass/Vol]1.60 mg/dLInvalid Interpretation Code0.5-1.5BMOOI GFR/1.73 sq M predicted among non-blacks MDRD (S/P/Bld) [Vol rate/Area]45 mL/min/{1.73_m2}Invalid Interpretation CodeLimestoneBlued Glucose [Mass/Vol]148.0 mg/dLInvalid Interpretation Srxx66-058QtmawradyMyHealthTeams Glucose [Mass/Vol]Patient did not bring strips for gxgxe12-421XiijkwuqjBlued HbA1c (Bld) [Mass fraction]6.90 %Invalid Interpretation Code4.3-6.3BMOOI Potassium [Moles/Vol]4.90 mmol/LInvalid Interpretation Code3.5-5.3BMOOI Protein [Mass/Vol]8.20 g/dLInvalid Interpretation Code 6.3-7.9BMOOI Sodium [Moles/Vol]132.0 mmol/LInvalid Interpretation Vnii749-522WuhjjillwMyHealthTeams Urea nitrogen [Mass/Vol]23.0 mg/dLInvalid Interpretation Code7-25My[facility] Urea nitrogen/Creatinine [Mass ratio]14 mg/mgInvalid Interpretation Code6-20My[facility] No Panel Informationon 97-37-1629Zdrejeq did not bring strips for meterInvalid Interpretation Mogx81-621SftwybiitBlued Otheron 12-94-8248Sdtopzk/Globulin [Mass ratio]1.2 (calc)1.0-2.4Bsycamore medical center [place] Bilirubin Ql (U)NegativeNegativeS[place] Glucose Test strip (U) [Mass/Vol]4+Invalid Interpretation CodeNegativeLimestoneBlued Hemoglobin Ql (U)TraceInvalid Interpretation Code NegativeLimestoneBlued Nitrite Ql (U)NegativeNegUNC Health ChathamBlued pH (U)5 [pH]Invalid Interpretation Code5.0-9.0LimestoneBlued Protein Ql (U)NegativeNegativeLimestoneBlued Urobilinogen Test strip (U) [Mass/Vol]normalnormal [place] 151.0 mg/dLInvalid Interpretation CodeLimestoneBlued Urinalysison 09-48-3723Ywjzlot (U)ClearInvalid Interpretation CodeClearBsycamore medical center [place] Color (U)yellowInvalid Interpretation Codeyellow [place] Ketones Ql (U)NegativeNegativeLimestoneBlued Leukocyte esterase Test strip Ql (U)NegativeNegative MonroeTolero Pharmaceuticals Specific gravity (U) [Rel density]1.015Invalid Interpretation Code1.003-1.030LimestoneBlued Coding Summaryon 54-48-6690Nvkbee SummaryCODING DATE: 06/20/2020 [facility] STATUS: Home PAYOR: Medicare APC DESCRIPTION [...] By: Estefany Aguilera Date Saved: 06/20/2020 12:49 pmNNationwide Children's HospitalCoding SummaryCODING DATE: 06/20/2020 [facility] STATUS: Home PAYOR: Medicare APC DESCRIPTION [...] By: Estefany Aguilera Date Saved: 06/20/2020 12:47 [facility].Auto Diff 1on 06-17-2020 Auto Garza %7 %Normal1-12TrihealthComment on above:Performed By: #### [id number], 2702193, [id number], [id number], [id number] #### [facility] (DEFAULT) [address] [place] [address] 87169Cgcj Abs#0.0 y05Muoweu8.0-0.2MMetroHealth Parma Medical CenterComment on above:Performed By: #### 1588584, 4664932, 83484203, [id number], [id number] #### [facility] (DEFAULT) [address] [place] [address] 73656Odjfbenwb/100 WBC (Bld)0.5 %Normal0.2-2.0[facility] Comment on above:Performed By: #### 9568337, 3152322, 22092112, [id number], [id number] #### [facility] (DEFAULT) [address] [place] [address] 29078Olq Abs#0.2 x13Jjldli3.0-0.4[facility] HospitalComment on above:Performed By: #### 7991294, 7143680, 74196908, [id number], [id number] #### [facility] (DEFAULT) [address] [place] [address] 33126Eubaedxnhwy/100 WBC (Bld)2.3 %Normal0.9-4.0[facility] HospitalComment on above:Performed By: #### 1812589, 1150377, 77241509, [id number], [id number] #### [facility] (DEFAULT) [address] [place] [address] 86751Ngzzuttbjiz (Bld) [#/Vol]2.3 w03Iflwkv1.3-2.9[facility] HospitalComment on above:Performed By: #### 6152051, 9490079, 33331207, [id number], [id number] #### [facility] (DEFAULT) [address] [place] [address] 62280Uycivqquyal/100 WBC (Bld)25 %Qggbob47-69Nllejzez Hospital Comment on above:Performed By: #### 0742598, 0240011, 58878997, [id number], [id number] #### [facility] (DEFAULT) [address] [place] [address] 88991Gqlc Abs#0.7 g77Hbveiq9.0-0.8[facility] HospitalComment on above:Performed By: #### 5889783, 2922841, 10293024, [id number], [id number] #### [facility] (DEFAULT) [address] [place] [address] 34186Qomw Abs#6.0 o86Itmnph4.5-9.2[facility] HospitalComment on above:Performed By: #### 2402713, 6698949, 99292648, 9187251316, [id number] #### [facility] (DEFAULT) [address] [place] [address] 63406Txfybvgjylm/100 WBC (Bld)65 %Iprevi06-91Arjcqqsr Hospital Comment on above:Performed By: #### 6921436, 1566410, 33831204, [id number], [id number] #### [facility] (DEFAULT) [address] [place] [address] 05092.QC Respiratory Panel 2.1 (BioFire)on 35-45-8365Oqsidujs Control-Resp Panel 2.1(BioFire)PassParma Community General HospitalComment on above:Order Comment: Ordered by Discern. [[email or web address]]Performed By: #### [id number] #### [facility] (DEFAULT) [address] [place] [address] 15716VHN w/ Auto Diffon 73-73-4991Lbvzmkszurj distribution width (RBC) [Ratio]12.9 %Kybqnb79.5-15.0TrihealthComment on above: Performed By: #### 5952093, 0677617, 36448681, 1410116277, [id number] #### [facility] (DEFAULT) [address] [place] [address] 00565Wpfairzqty (Bld) [Volume fraction]45.1 %Rumbdo18.8-51.9 TrihealthComment on above:Performed By: #### 9162296, 8572769, 52950104, [id number], [id number] #### [facility] (DEFAULT) [address] [place] [address] 16242Lgmjbhncio (Bld) [Mass/Vol]15.6 g/aNTytigl65.8-17.7 TrihealthComment on above:Performed By: #### 0232614, 3641990, 11573286, 2910509048, [id number] #### [facility] (DEFAULT) [address] [place] [address] 22068Qaq Diff?AutoNormalAdena [facility]ike Medical Center HospitalComment on above: Performed By: #### 0223385, 4294173, 29661597, [id number], [id number] #### [facility] (DEFAULT) [address] [place] [address] 30250TES (RBC) [Entitic mass]32 jwJulmvh51-90Znoiasci Hospital Comment on above:Performed By: #### 8565700, 1565654, 15640259, 8810066412, [id number] #### [facility] (DEFAULT) [address] [place], [place] [address]HC (RBC) [Mass/Vol]35 g/eFKkhofr04-55Vqhyhwnd Hospital Comment on above:Performed By: #### 4550211, 9953479, 00119608, [id number], [id number] #### [facility] (DEFAULT) [address] [place] [address] 28895JJK (RBC) [Entitic vol]93 rRVqhcxr27-947Affsrvyx Hospital Comment on above:Performed By: #### 8391272, 8303640, 29864850, 7576247810, [id number] #### [facility] (DEFAULT) [address] [place] [address] 06458Xzprdgma mean volume (Bld) [Entitic vol]9.9 fLNormal 6.3-10.2[facility] HospitalComment on above:Performed By: #### 3453150, 8859828, 03142169, 5599346207, [id number] #### [facility] (DEFAULT) [address] [place] [address] 65439Efgvmnmhv (Bld) [#/Vol]277 i28Fgqrgw146-284Iccpqgeg HospitalComment on above:Performed By: #### 6134869, 2095391, 49791661, 2410234470, 1425548465 #### [facility] (DEFAULT) [address] [place] [address] 24552TNS (Bld) [#/Vol]4.[address]70[address] Hospital Comment on above:Performed By: #### 1049921, 6555275, 58045996, 2780292999, [id number] #### [facility] (DEFAULT) [address] [place] [address] 65049WKE (Bld) [#/Vol]9.3 o71Qdtgir9.5-10.5Maprovidence hospital Hospital Comment on above:Performed By: #### 7499981, 6939833, 86404014, 0099070560, [id number] #### [facility] (DEFAULT) [address] [place] [address] 01710WRO Standardon 82-84-2821iDSQ Non AA>60[facility] Comment on above:Performed By: #### 9814202, 9516908, 60314321, 3925954481, [id number] #### [facility] (DEFAULT) [address] [place] [address] 04582vBYJ AA>60TrihealthComment on above:Result Comment: Chronic Kidney disease could be indicated at eGFRs of less than 60 ml/min/1.73m2. Kidney Failure is indicated at less than 15 ml/min/1.73m2 Performed By: #### 1095206, 9216634, 84952804, 7347535774, [id number] #### [facility] (DEFAULT) [address] [place] [address] 78628Zxfbfnj [Mass/Vol]4.0 g/dLNormal3.5-5.0[facility] Comment on above:Performed By: #### 5016915, 9401884, 79586473, 9756583993, [id number] #### [facility] (DEFAULT) [address] [place] [address] 13260Pnguplf/Globulin [Mass ratio]1.1 {ratio}Low1.4-2.6MMetroHealth Parma Medical CenterComment on above:Performed By: #### 7257292, 8869145, 92337308, 6722786017, [id number] #### [facility] (DEFAULT) [address] [place] [address] 30998Gux Phos70 IU/BFzogfj97-70Goygyktx HospitalComment on above:Performed By: #### 0426205, 4464551, 52210202, 8481496856, [id number] #### [facility] (DEFAULT) [address] [place] [address] 11078NHJ/SGPT42.0 IU/LMducql41.0-63.0[facility] HospitalComment on above:Performed By: #### 3596101, 3669462, 22234281, 0793190279, [id number] #### [facility] (DEFAULT) [address] [place] [address] 03709Zaonh gap [Moles/Vol]13.0 mmol/LNormal5.0-19.0[facility] HospitalComment on above:Performed By: #### 8909418, 4768108, 19133225, [id number], [id number] #### [facility] (DEFAULT) [address] [place] [address] 38047SRM/SGOT27 IU/UAdulcd13-47Eetejlii HospitalComment on above:Performed By: #### 7206399, 9747033, 26234441, 5995818809, [id number] #### [facility] (DEFAULT) [address] [place] [address] 07263Aaco Total0.7 mg/dLNormal0.3-1.2Magrwilson health HospitalComment on above:Performed By: #### 6480822, 1298454, 25006386, 4608530898, [id number] #### [facility] (DEFAULT) [address] [place] [address] 96342Rckkryu [Mass/Vol]9.0 mg/dLNormal8.9-10.3Magrwilson health Hospital Comment on above:Performed By: #### 9170473, 7322054, 72281237, 4707277115, [id number] #### [facility] (DEFAULT) [address] [place] [address] 12348Oxjdeuyk [Moles/Vol]102 mmol/KDzduhh725-282Yndnzftg HospitalComment on above:Performed By: #### 1154183, 0095631, 68844737, 8293171861, [id number] #### [facility] (DEFAULT) [address] [place] [address] 56941SA4 [Moles/Vol]25 mmol/ZJxikux82-18Huwbfkjo Hospital Comment on above:Performed By: #### 5515410, 8206550, 97534413, 2962259072, [id number] #### [facility] (DEFAULT) [address] [place] [address] 45035Sfndwujfpy [Mass/Vol]0.97 mg/dLNormal0.90-1.30Maprovidence hospital HospitalComment on above:Performed By: #### 6883964, 6432755, 11079493, 3509320120, [id number] #### [facility] (DEFAULT) [address] [place] [address] 24212Okzmnbdh (S) [Mass/Vol]3.5 g/dLNormal1.5-4.3[facility] HospitalComment on above:Performed By: #### 6085237, 0594999, 13073809, [id number], [id number] #### [facility] (DEFAULT) [address] [place] [address] 21431Mdkjpli [Mass/Vol]123.0 mg/jHAygv55.0-118.0[facility] HospitalComment on above:Performed By: #### 4711459, 3541551, 28719609, 3361823124, [id number] #### [facility] (DEFAULT) [address] [place] [address] 61132Tajplznsqu [Osmolality]276 mOsm/LMcleveland clinic [facility]'s hospital for rehabilitation HospitalComment on above:Performed By: #### 9545751, 2932686, 40978955, 3779315651, [id number] #### [facility] (DEFAULT) [address] [place] [address] 89459Seaynwksj [Moles/Vol]3.6 mmol/LNormal3.6-5.1[facility] HospitalComment on above:Performed By: #### 8593451, 0036607, 01729894, [id number], [id number] #### [facility] (DEFAULT) [address] [place] [address] 08157Aipqrll [Mass/Vol]7.5 g/dLNormal6.5-8.1[facility] Hospital Comment on above:Performed By: #### 9693216, 5373098, 40960012, 9121941109, [id number] #### [facility] (DEFAULT) [address] [place] [address] 74704Towzew [Moles/Vol]136.0 mmol/STkosrj306.0-144.0[facility] HospitalComment on above:Performed By: #### [id number], [id number], [id number], [id number], [id number] #### [facility] (DEFAULT) [address] [place] [address] 10723Gqim nitrogen [Mass/Vol]19 mg/dLNormal8-26[facility] HospitalComment on above:Performed By: #### [id number], [id number], [id number], [id number], [id number] #### [facility] (DEFAULT) [address] [place] [address] 15109Auyt nitrogen/Creatinine [Mass ratio]20.0 mg/mgHigh 4.6-16.2[facility] HospitalComment on above:Performed By: #### [id number], [id number], [id number], [id number], [id number] #### [facility] (DEFAULT) [address] [place] [address] 99971Q-Isrobyc 82-69-3834N-Dimer0.23 mg/L FEUNormal0.19-0.50 [facility]healthComment on above:Result Comment: The INNOVANCE D-Dimer assay (Cutoff Value [...] severe skin infections ? Liver cirrhosis ? PregnancyPerformed By: #### [id number], [id number], [id number], [id number], [id number] #### [facility] (DEFAULT) [address] [place], [place] [id number] Clinical Summaryon [id number] Clinical Summary [facility] - Emergency Department [address] [place] [address] ED Clinical Summary PERSON INFORMATION Name: GEREMIAS MELCHOR Age: 54 Years Sex: MALE : 1965 MRN: Acct#: Visit Reason: Shortness of breath; SOB Arrival: 06/17/2020 15:26:17 Discharge: 06/17/2020 17:58:00 LOS: 000 02:32 Check In: 06/17/2020 15:26:17 Checkout:06/17/2020 17:58:00 Address: [address] [place] [address] PCP: Ericka Muniz MD PROVIDER INFORMATION Provider Role Assigned Unassigned Luis A JIMENEZ, Leonela Sorenson ED Nurse 06/17/2020 15:32:57 Tc GE, Otilia ED PA 06/17/2020 15:58:56 VITALS INFORMATION Vital [...] Adult Follow-Up: With: Address: When: Ericka Muniz [address] [place] [address] [facility] (1) Within 3 to 5 days DIAGNOSIS: Viral URI with cough Patient Understands: Yes - Patient/family/caregiver verbalizes understanding of instructions given Comment:[facility] Hospital[facility] Note - Physicianon [id number] Note - PhysicianPatient: GEREMIAS MELCHOR Age: 54 years Sex: MALE : [...] can return to ER for any worsening orconcerning symptoms.. Documents reviewed: Emergency department nurses' notes. [...] % Auto Lymph % 25 % Auto Garza % 7 % Auto Eos % 2.3 % Auto Baso % 0.5 % Neut Abs# 6.0 x103/mcL Lymph Abs# 2.3 x103/mcL Garza Abs# 0.7 x103/mcL Eos Abs# 0.2 x103/mcL [...] and Plan Diagnosis Viral URI with cough (BNG49-XL J06.9, Discharge, Medical) Plan Condition: Stable. Disposition: [...] 06/17/2020 18:26 EST] Otilia Francois [facility]ED Note-Nursingon 10-04-9772GA Note-NursingPatient arrives to the ED via private vehicle. Ambulated with a steady gait to room 5. Alert and oriented X4. C/O shortness of breath. Patient reports receiving a steroid and Z pack from family doctor. Patient reports that he felt better after taking medications. States he tested negative for COVID19 on Tuesday. Patient reports that he had 9/10 symptoms for COVID 19. States he still feels more short of breath than normal.[facility] Patient Education Noteon [id number] Patient Education NoteEducation Materials Upper Respiratory Infection, Adult An upper respiratory infection (URI) is a common viral infection of the nose, throat, and upper airpassages that lead to the lungs. The most [...] to help relieve symptoms, such as: ? Ptbi-dlg-mtopehe cold medicines. ? Cough suppressants. Coughing is [...] day or as needed. To make a salt- water mixture, completely dissolve ??1 tsp of salt in 1 cup of warm water. ? Use a cool-mist humidifier to add moisture to the air. This can help you breathe more easily. Eating and drinking ? Drink enough fluid to keep your urine pale yellow. ? Eat soups and other clear broths. General instructions ? Take jmjo-agx-ggcycyq and prescription medicines only as told by your health care provider. Theseinclude cold medicines, fever reducers, and cough suppressants. ? Do not use any products that contain nicotine or tobacco, such as cigarettes and e-cigarettes. Ifyou need help quitting, ask your health care [...] and water are not available, use hand production estimator. ? Avoid touching your mouth, face, eyes, [...] care provider may recommend certain medicines to helprelieve symptoms. This information is not intended to replace advice given to you by your health care provider. Make sure you discuss any questions you have with your health care provider. Document Released: 12/21/2001 Document Revised: 07/05/2019 Document Reviewed: 02/10/2018 vWise Patient Education ? 2019 [employer]. ENT Cough, Adult Coughing is a reflex [...] these instructions at home: Medicines ? Take pxtq-eyj-vmerqjb and prescription medicines only as told by [...] a condition that needs treatment. ? Take zpym-ehy-unwojui and prescription medicines only as told by your health care provider. ? Always cover your mouth when you cough. ? Contact a health care provider if you have new symptoms or a cough that does not get better after2?3 weeks or gets worse. This information is not intended to replace advice given to you by your health care provider. Make sure you discuss any questions you have with your health care provider. Document Released: 12/24/2011 Document Revised: 07/16/2019 Document Reviewed: 07/16/2019 [employer]Wise Patient Education ? 2019 [employer].[facility] HospitalED Patient Summaryon [id number] Patient SummaryTrihealth - Emergency Department [address] [place] [address] PATIENT DISCHARGE INSTRUCTIONS Patient Information Name: GEREMIAS MELCHOR Age: 54 Years Date of : 1965 Reason For Visit: Shortness of breath; SOB Arrival Time: 06/17/2020 15:26:17 Primary Care Physician: Ericka Muniz MD Attending Physician: Landon Vegas MD Comment: Visit Diagnosis: Diagnoses This Visit Shortness of breath ([id number]) Viral URI with cough (J06.9) Prescription Information: If you have been given a prescription for narcotics, seek immediate medical attention if you have any difficulty breathing or any sudden status changes such as confusion andsleepiness. If you or anyone you know is experiencing suicidal thoughts, mental health, alcohol and/or drug addiction problems; contact the [facility] 31/01 Crisis Hotline -Text 4HJAS to 776683. If you received any narcotics, sedation, or [...] legal documents With: Address: When: Ericka Muniz [address] [place], [place] [id number] Business (1) Within 3 to 5 days Medication Information: The exam and treatment you received today in the [facility] Emergency Department were for an urgent problem and are not intended as complete care. It is important for you to follow up with a doctor, nurse practitioner, or physician?s senior administrative assistant for ongoing care. If your symptoms become worse or you donot improve as expected and you are unable [...] so we can reach you if necessary. [facility] Emergency [facility] has provided you with a complete list of medications post discharge. Please inform your manager power/provider of your visit and for further instruction [...] infection of the nose, throat, and upper airpassages that lead to the lungs. The most [...] to help relieve symptoms, such as: ? Nnez-cwz-ruedtol cold medicines. ? Cough suppressants. Coughing is [...] day or as needed. To make a salt- water mixture, completely dissolve ??1 tsp of salt in 1 cup of warm water. ? Use a cool-mist humidifier to add moisture to the air. This can help you breathe more easily. Eating and drinking ? Drink enough fluid to keep your urine pale yellow. ? Eat soups and other clear broths. General instructions ? Take rasb-law-ogkxxzf and prescription medicines only as told by your health care provider. Theseinclude cold medicines, fever reducers, and cough suppressants. ? Do not use any products that contain nicotine or tobacco, such as cigarettes and e-cigarettes. Ifyou need help quitting, ask your health care [...] and water are not available, use hand production estimator. ? Avoid touching your mouth, face, eyes, [...] care provider may recommend certain medicines to helprelieve symptoms. This information is not intended to replace advice given to you by your health care provider. Make sure you discuss any questions you have with your health care provider. Document Released: 12/21/2001 Document Revised: 07/05/2019 Document Reviewed: 02/10/2018 vWise Patient Education ? 2020 [employer]. Cough, Adult Coughing is a reflex [...] these instructions at home: Medicines ? Take nnrh-tab-yflfkdx and prescription medicines only as told by [...] a condition that needs treatment. ? Take dmwh-tnt-xhnffko and prescription medicines only as told by your health care provider. ? Always cover your mouth when you cough. ? Contact a health care provider if you have new symptoms or a cough that does not get better after2?3 weeks or gets worse. This information is not intended to replace advice given to you by your health care provider. Make sure you discuss any questions you have with your health care provider. Document Released: 12/24/2011 Document Revised: 07/16/2019 Document Reviewed: 07/16/2019 ElseGemvara Patient Education ? 2019 [employer]. Viruses or Bacteria What?s got you [...] Centers for Disease Control and Prevention March 2014[facility] Extra Red 08-17-9054Pvki CollectedSalem City HospitalComment on above: Performed By: #### [id number], [id number], [id number], [id number], [id number] #### [facility] (DEFAULT) [address] [place] [address]ZrF [facility] 25-21-9815Xyprdceq I High Sensitivity4 pg/mL Normal<=20TrihealthComment on above:Result Comment: Male Baseline Delta 1Hr (Note pg/mL=ng/L) <20pg/mL 50-60% >20pg/mL 20% Female Baseline Delta 1Hr <15pg/mL 50-60% >15pg/mL 20% Other Baseline Delta 1Hr <18ng/mL 50-60% >18ng/mL 20% ([employer] [employer] Guidelines February 2018)Performed By: #### [id number], [id number], [id number], [id number], [id number] #### [facility] (DEFAULT) [address] [place], [place] [address]Umrjkipzg Panelon 93-22-7422JBO [Catalytic activity/Vol] 50.0 U/LInvalid Interpretation CodeLimestoneBlued Bilirubin [Mass/Vol]0.3 mg/dL0.0-1.0LimestoneBlued HbA1c (Bld) [Mass fraction]6.6 %4.3-6.3Bswedish medical center edmondsBricsnet HbA1c (Bld) [Mass fraction]6.60 %Invalid Interpretation CodeLimestoneBlued Albumin [Mass/Vol]4.50 g/dLInvalid Interpretation Code [place] AST [Catalytic activity/Vol]31.0 U/LInvalid Interpretation CodeEssence Group Holdings No Panel Informationon 04-08-20206.6Invalid Interpretation Code4.3-6.3Bsycamore medical center [place] 0.3Invalid Interpretation Code0.0-1.0LimestoneBlued NegativeInvalid Interpretation CodeNegativeEssence Group Holdings Otheron 56-53-3379DzrmwxclZbwfxpcvHojpfpbfjEssence Group Holdings 4+Invalid Interpretation CodeNegativeEssence Group Holdings ClearInvalid Interpretation CodeClearBsycamore medical center Hoodinn normalInvalid Interpretation CodenormalLimestoneBlued yellowInvalid Interpretation CodeyellowMyHealthTeams 5710-7775024-64XbsaalbjqMyHealthTeams 6Invalid Interpretation Code5.0-9.0My[facility] 31Invalid Interpretation Code0-40[employer] 78Invalid Interpretation Conp67-851OnksneysiEssence Group Holdings 1.010Invalid Interpretation Code1.003-1.030[employer] 1.5Invalid Interpretation Code1.0-2.4Bhoward young medical centerNoiseFree 4.5Invalid Interpretation Code3.7-4.5BMOOI 1.5Invalid Interpretation Code6.3-7.9BMOOI 143Invalid Interpretation CodeEssence Group Holdings 115.0 mg/dLInvalid Interpretation Code<140MyHealthTeams lsInvalid Interpretation CodeMyHealthTeams MRI KNEE RIGHT WO CONTRASTon 53-19-9758IEY KNEE RIGHT WO CONTRASTEXAMINATION: MRI OF THE RIGHT KNEE WITHOUT CONTRAST, [...] Signed by: Jos Martins MD 03/25/20 Final resultNormalMercy Windham Hospital free edge degeneration of the medial meniscus. Multifocal partial-thickness chondromalacia ofthe medial compartment. Full-thickness tear of the MCL from its femoral attachment. Subtle microtrabecular infraction within the medial tibial plateau with patchy surrounding marrow edema. Prepatellar bursitis measuring 2.5 x 2.2 x 0.6 cm. 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 Thickening of the anterior and posterior cruciate ligaments, suggestive of sprains. No definite tear identified.[facility], KYEXAMINATION: MRI OF THE RIGHT KNEE WITHOUT CONTRAST, 03/25/2020 2:39 pm TECHNIQUE: Multiplanar multis equence MRI of the right knee was performed without the administration of intravenous contrast. COMPARISON: None. HISTORY: ORDERING SYSTEM PROVIDED HISTORY: Right knee pain, unspecified chronicity FINDINGS: MENISCI: Lateral meniscus is normal in bulk, contour, and signal intensity, without discretetear identified. There is inner free edge degeneration/truncation [...] tear of the MCL at its femoral attachment.KNEE JOINT: Multifocal grade 3-4 chondromalacia within the medial and patellofemoral compartments. Small patellofemoral joint effusion. BONE MARROW: Subtle subcortical curvilinear hypointense signal with patchy surrounding marrow edema are most compatible with a microtrabecular infraction.[facility] [place], [place] Ezekiel, Mhpn Incoming Radiant Results From [employer] - 03/25/2020 3:02 PM EDT EXAMINATION: MRI [...] suggestive of sprains. No definite tear identified. [facility], [facility] SHOULDER RIGHT WO CONTRASTon 91-39-5661GDO SHOULDER RIGHT WO CONTRASTEXAMINATION: MRI OF THE RIGHT SHOULDER WITHOUT CONTRAST [...] approximately 7 mm in greatest AP dimension. Hdmxcais-np-pgjpjd underlying supraspinatus tendinopathy and granulation tissue. Atps-al-lcvykcod underlying infraspinatus tendinopathy. Mild subscapularis tendinopathy. Teres [...] 6. No paralabral cyst formation. GLENOHUMERAL JOINT: Plzm-lw-ldozfxqz glenohumeral chondromalacia. Small amount of fluid in [...] dimension with tear gap measuring 1.5 cm. Rpuegpir-xn-xzgpwz underlying supraspinatus tendinopathy and granulation tissue. Ppmr-rz-gankyaim underlying infraspinatus tendinopathy. 2. Mild subscapularis tendinopathy. 3. Mild atrophy and fatty degeneration of subscapularis. 4. Mild diffuse labral degeneration. Degenerative tearing along the superior labrum. 5. Jgzb-zd-lcooxloe glenohumeral chondromalacia. 6. Mild degenerative change of the right AC joint. 7. Prior biceps tenodesis. 8. Susceptibility artifact and marrow edema surrounding a stress riser at the anterior humeral head. Interpreted by: Rodrigo Purcell MD Signed by: Rodrigo Purcell MD 02/12/20 Final resultNoParkview Health Montpelier Hospital1. Prior rotator cuff repair. Region of full-thickness tearing of the critical zone along mid and posterior supraspinatus measuring 7 mm in greatest AP dimension with tear gap measuring 1.5 cm. Ckkwuqgj-lu-jrsjav underlying supraspinatus tendinopathy and granulation tissue. Hrft-no-eoaepjxc underlying infraspinatus tendinopathy. 2. Mild subscapularis tendinopathy. 3. Mild atrophy and fatty degeneration of subscapularis. 4. Mild diffuse labral degeneration. Degenerative tearing along the superior labrum. 5. Mkwc-if-fopyyxxv glenohumeral chondromalacia. 6. Mild degenerative change of the right AC joint. 7. Prior biceps tenodesis. 8. Susceptibility artifact and marrow edema surrounding a stress riser at the anterior humeral head.[facility], KYEXAMINATION: MRI OF THE RIGHT SHOULDER WITHOUT CONTRAST [...] contiguous with the glenohumeral joint. Region of full-thicknesstearing in the critical zone along mid and posterior supraspinatus. The tear gap measures 1.5 cm onimage 6, series 6 and approximately 7 mm in greatest AP dimension. Jjneddyx-va-jkfckr underlying supraspinatus tendinopathy and granulation tissue. Wobi-qe-aebktrca underlying infraspinatus tendinopathy. Mild subscapularis tendinopathy. Teres minor muscle/tendon appear grossly intact without evidence of tearing. Mild atrophy and fatty degeneration of subscapularis. BICEPS TENDON: Nonvisualizationof the long head of biceps tendon in the bicipital groove or rotator interval. This is likely related to prior biceps tenodesis. LABRUM: Mild diffuse labral degeneration. Degenerative tearing along the superior labrum on image 8, series 6. No paralabral cyst formation. GLENOHUMERAL JOINT: Lvfv-vy-bhfimizf glenohumeral chondromalacia. Small amount of fluid in the glenohumeral joint space without sizable effusion. Inferior glenohumeral ligament appears intact. AC JOINT AND ACROMIOCLAVICULAR ARCH:Mild degenerative change of the right AC joint. [...] grossly unremarkable in appearance. No right axillary lymphadenopathy.[facility] [place], KYEd, [facility] Incoming Radiant Results From [employer] - 02/12/2020 3:46 PM EDT EXAMINATION: MRI [...] approximately 7 mm in greatest AP dimension. Kbrceglo-tl-pxfjxk underlying supraspinatus tendinopathy and granulation tissue. Wduq-rc-oswaivrx underlying infraspinatus tendinopathy. Mild subscapularis tendinopathy. Teres [...] 6. No paralabral cyst formation. GLENOHUMERAL JOINT: Kupq-ym-itvrmzyv glenohumeral chondromalacia. Small amount of fluid in [...] dimension with tear gap measuring 1.5 cm. Gfjnpfhy-ah-jcsdrf underlying supraspinatus tendinopathy and granulation tissue. Mbgg-ql-oqbjjlpn underlying infraspinatus tendinopathy. 2. Mild subscapularis tendinopathy. 3. Mild atrophy and fatty degeneration of subscapularis. 4. Mild diffuse labral degeneration. Degenerative tearing along the superior labrum. 5. Nhuw-du-qtsoqvlp glenohumeral chondromalacia. 6. Mild degenerative change of the right AC joint. 7. Prior biceps tenodesis. 8. Susceptibility artifact and marrow edema surrounding a stress riser at the anterior humeral head. [facility], KYGlucose, Whole Bloodon 27-41-8086Xyzxjxr [Mass/Vol]113 mg/dL High74 - 100 mg/dLOhioHealth Doctors Hospital, JACQUELINEInterpretation and review of laboratory resultsAbnormalOhioHealth Doctors Hospital, KYBUNon 59-11-6340Dmro nitrogen [Mass/Vol]16 mg/dL6 - 20 mg/dLOhioHealth Doctors Hospital, KYBUN (Urea N)on 56-62-8279Wpvt nitrogen [Mass/Vol]16 mg/dLNormal6-20Protestant HospitalComment on above:Performed By: #### HCT, BUN, CREG, GLU, LYTE #### [address] [place] [address] Hand Paster: Sandeep Mac w/GFRon 12-26-2019(cont.)NormalProtestant HospitalComment on above:Result Comment: Average GFR for 50-59 years old: 93 mL/min/1.73sq m Chronic Kidney Disease: <60 mL/min/1.73sq m Kidney failure: <15 mL/min/1.73sq m eGFR calculated using average adult body mass. Additional eGFR calculator available at: http://www.[employer]/multiple_crcl_2011.htmPerformed By: #### HCT, BUN, CREG, GLU, LYTE #### [address] [place] [address] Hand Paster: Sandeep Mac [Mass/Vol]1.15 mg/dLNormal0.70-1.20 Protestant HospitalComment on above:Performed By: #### HCT, BUN, CREG, GLU, LYTE #### [address] [place] [address] Hand Paster: Domingo Rayo MDGFR, Amer>60Normal>60[facility] Comment on above:Performed By: #### HCT, BUN, CREG, GLU, LYTE #### [address] [place] [address] Hand Paster: Domingo Rayo MDGFR,non Amer>60Normal>60Protestant HospitalComment on above:Performed By: #### HCT, BUN, CREG, GLU, LYTE #### [place] [address] [place], [place] [address] Hand Paster: Domingo Rayo, MDStaging:[facility]ene Memorial HospitalComment on above:Result Comment: Stage 1: Some kidney damage normal GFR Stage 2: Mild kidney damage GFR 60-89 Stage 3: Moderate kidney damage GFR 30-59 Stage 4: Severe kidney damage GFR 15-29 Stage 5: Severe kidney damage GFR <15 ESRD - chronic treatment by dialysis or transplantPerformed By: #### HCT, BUN, CREG, GLU, LYTE #### [address] [place] [address] Hand Paster: Domingo Rayo, SUNNYreatinine, Serumon 93-05-5626Dikpwxeiuh [Mass/Vol]1.15 mg/dL0.7 - 1.2 mg/dLOhioHealth Doctors Hospital, KYGFR >60 >60 mL/minOhioHealth Doctors Hospital, KYGFR Non->60>60 mL/minOhioHealth Doctors Hospital, KYElectrolyte Panelon 63-66-3790Wljmf gap [Moles/Vol]17 mmol/L9 - 17 mmol/L [facility], KYChloride [Moles/Vol]95 mmol/LLow98 - 107 mmol/[facility], KYCO2 [Moles/Vol]24 mmol/L20 - 31 mmol/[facility], KYPotassium [Moles/Vol]3.7 mmol/L3.7 - 5.3 mmol/[facility], KYSodium [Moles/Vol]136 mmol/L135 - 144 mmol/[facility], KYElectrolyteson 07-23-1463Wzqnw gap [Moles/Vol]17 mmol/LNormal9-17Protestant HospitalComment on above:Performed By: #### HCT, BUN, CREG, GLU, LYTE #### [facility] [address] [place], [place] [address] Hand Paster: SUNNY Machloride [Moles/Vol]95 mmol/LBvc60-651VldvgProtestant HospitalComment on above:Performed By: #### HCT, BUN, CREG, GLU, LYTE #### [address] [place], [facility] Hand Paster: Domingo Rayo MDCO2 [Moles/Vol]24 mmol/AKeuhor77-89Ijblg Tiffin HospitalComment on above:Performed By: #### HCT, BUN, CREG, GLU, LYTE #### [address] [place] [id number] Hand Paster: Domingo Rayo MDPotassium [Moles/Vol]3.7 mmol/LNormal3.7-5.3[facility]rees[facility] HospitalComment on above:Performed By: #### HCT, BUN, CREG, GLU, LYTE #### [address] [place] [address] Hand Paster: Domingo Rayo MDSodium [Moles/Vol]136 mmol/FDzwtqx295-273VsxhrProtestant HospitalComment on above:Performed By: #### HCT, BUN, CREG, GLU, LYTE #### [address] [place] [id number] Hand Paster: Domingo Rayo MDGlucoseon 24-78-6072Pgfyfdo [Mass/Vol]107 mg/dL Jodz57-06Ldiwd [facility] Memorial HospitalComment on above:Performed By: #### HCT, BUN, CREG, GLU, LYTE #### [address] [place] [id number] Hand Paster: Pramod Mac, randomon 40-37-3965Nuapziu [Mass/Vol]107 mg/fUFukx73 - 99 mg/dLSamaritan Hospital JACQUELINEHematocriton 27-13-6323Jdaleqdpny (Bld) [Volume fraction]47.4 %Dfbxuz51.7-50.3[facility]frees[facility] HospitalComment on above:Performed By: #### HCT, BUN, CREG, GLU, LYTE #### [address] [place] [address] Hand Paster: Domingo Rayo MDHematocrisandra (Bld) [Volume fraction]47.4 %40.7 - 50.3 %[place], KYMetabolic Panelon 44-73-0465WNB/1.73 sq M predicted among non-blacks MDRD (S/P/Bld) [Vol rate/Area][facility] on above:Average GFR for 50-59 years old: 93 mL/min/1.73sq m Chronic Kidney Disease: <60 mL/min/1.73sq m Kidney failure: <15 mL/min/1.73sq m eGFR calculated using average adult body mass. Additional eGFR calculator available at: http://www.[employer]/Parse_crcl_2012.htm Stage 1: Some kidney damage normal GFR Stage 2: Mild kidney damage GFR 60-89 Stage 3: Moderate kidney damage GFR 30-59 Stage 4: Severe kidney damage GFR 15-29 Stage 5: Severe kidney damage GFR <15 ESRD - chronic treatment by dialysis or transplant Otheron 91-17-9449Ibukwodqusqghi and review of laboratory resultsAbnormSelect Medical [facility], [place], JACQUELINECOVID-19on 67-85-8953DQLN-CoV-2Not DetectedNot [place], KYCompromedica charles and [facility] on above: The specimen is NEGATIVE for SARS-CoV-2, the novel coronavirus associated with COVID-19. A negative result does not rule out COVID-19. This test has been authorized by the FDA under an Emergency Use Authorization (EUA) for use by authorized laboratories. Fact sheet for Healthcare Providers: https://www.fda.gov/media/684264/download Fact sheet for Patients: https://www.fda.gov/media/634525/download METHODOLOGY: RT-PCR SARS-CoV-2, PCROhioHealth Doctors Hospital, XTUIHD-DtU-9, RapidMer[facility] .NASOPHARYNGEAL SWABOhioHealth Doctors Hospital, NHTWXI-LmB-0ca 04-77-4198YJUT-CoV-2,Rapid [facility] on above:Performed By: #### COVID #### [facility] [address] [place] [address] Hand Paster: Sam Jacobs MD [address] [place] [address] Hand Paster: LORENA MacMMHDFO-FrS-6EvwvrqKkutgSalem Regional Medical CenterComment on above:Performed By: #### COVID #### [address] [place] [address] Hand Paster: Sam Jacobs MD [facility] [address] [place] [address] [address] [place] [address] Hand Paster: Doni Macot DetectedNormalNOTDEUniversity Hospitals Geauga Medical CenterCompromedica charles [facility] on above:Result Comment: The specimen is NEGATIVE for SARS-CoV-2, the novel coronavirus associated with COVID-19. A negative result does not rule out COVID-19. This test has been authorized by the FDA under an Emergency Use Authorization (EUA) for use by authorized laboratories. Fact sheet for Healthcare Providers: https://www.fda.gov/media/620974/download Fact sheet for Patients: https://www.fda.gov/media/987199/download METHODOLOGY: RT-PCRPerformed By: #### COVID #### [facility] [address] [place] [address] Hand Paster: Sam Jacobs MD [address] [place] [id number] Hand Paster: Domingo Rayo MDEKG 12 Lead 42-08-8755Lkwjno Owde59PRBBrdkx Health- [place], [place] Yjhk44btfbxhaYttdt Health- [place]-R Gethehiq551 msMercy Health- [place], KYQ-T Lullyymp353 msMercy Health- [place], KYQRS Gwtszphj91 msMercy Health- [place], KYQTc Calculation (Rosalva)445 msMercy Health- [place], KYR Lwio29iezjypbLxcpb Health- [place], KYT Omws23fjwiaxfHrnoj Health- [place], KYVentricular Ejwh67SFCEocyr Health- [place], KYNormal sinus rhythm Normal ECG No previous ECGs available Confirmed by Federico Burks MD ([id number]) on 12/24/2019 4:59:35 [facility] JACQUELINEBrett Falcon Incoming Ekg Results From [facility] [place] - 12/24/2019 4:59 PM EDT Normal sinus rhythm Normal ECG No previous ECGs available Confirmed by Federico Burks MD ([id number]) on 12/24/2019 4:59:35 [facility] JACQUELINE MJXN-BuS-6pi [id number]-CoV-2 Source.NASOPHARYNGEAL SWABNoParkview Health Montpelier HospitalComment on above:Performed By: #### COVID #### [facility] [address] [place] [address] Hand Paster: Sam Jacobs MD [facility] [address] [place] [address] Hand Paster: Domingo Rayo MDLaboratory - Chemistry and Chemistry - challenge on 23-97-4359Jdwxfqnet Ql (U)NegativeInvalid Interpretation CodeNegative [place] Urobilinogen (U) [Mass/Vol]normalInvalid Interpretation CodenormalMyHealthTeams Laboratory - Hematology and Cell countson 12-20-2019 Hemoglobin Ql (U)NegativeInvalid Interpretation CodeNegativeEssence Group Holdings Laboratory - Urinalysison 55-44-0564Nsyzdtpfn esterase Test strip Ql (U)NegativeInvalid Interpretation CodeNegativeEssence Group Holdings Nitrite Ql (U)NegativeInvalid Interpretation Code NegativeEssence Group Holdings Protein Ql (U)NegativeInvalid Interpretation Code NegativeEssence Group Holdings Metabolic Panelon 99-58-2632Ugrkh gap [Moles/Vol]20 mmol/LInvalid Interpretation Pmmq88-77IupydmsgeEssence Group Holdings Calcium [Mass/Vol]9.10 mg/dLInvalid Interpretation Code 8.5-10.8Bsycamore medical center [employer] [facility] Chloride [Moles/Vol]97.0 mmol/LInvalid Interpretation Ppmi391-697Cadcfsjvs [place] [employer] [facility] CO2 [Moles/Vol]23.0 mmol/LInvalid Interpretation Code 23-30[place] [employer] [facility] Creatinine [Mass/Vol]1.0 mg/dLInvalid Interpretation Code0.5-1.5Bsycamore medical center [employer] [facility] GFR/1.73 sq M predicted among non-blacks MDRD (S/P/Bld) [Vol rate/Area]78 mL/min/{1.73_m2}Invalid Interpretation CodeS[place] [employer] [facility] Glucose [Mass/Vol]90.0 mg/dLInvalid Interpretation Code [email or web address] [facility] HbA1c (Bld) [Mass fraction]6.80 %Invalid Interpretation Code4.3-6.3Bsycamore medical center [employer] [facility] Potassium [Moles/Vol]4.10 mmol/LInvalid Interpretation Code3.5-5.3Bsycamore medical center [employer] [facility] Sodium [Moles/Vol]136.0 mmol/LInvalid Interpretation Phec731-560DjrkftghtTheVegibox.com [facility] Urea nitrogen [Mass/Vol]16.0 mg/dLInvalid Interpretation Cod[email or web address] [facility] Urea nitrogen/Creatinine [Mass ratio]16 mg/mgInvalid Interpretation Code6-20LimestoneTheVegibox.com [facility] Otheron 22-35-8239Wfmqrdxku Ql (U)NegativeNegative [place] [employer] [facility] Glucose Test strip (U) [Mass/Vol]4+Invalid Interpretation CodeNegativeLimestoneBlued Hemoglobin Ql (U)NegativeNegativeS[place] Nitrite Ql (U)NegativeNegativeS[place] pH (U)5 [pH]Invalid Interpretation Code5.0-9.0LimestoneBlued Protein Ql (U)NegativeNegativeLimestoneBlued Urobilinogen Test strip (U) [Mass/Vol]normalnormal [place] 148BlanchBlued 148.0 mg/dLInvalid Interpretation CodeLimestoneBlued Urinalysison 69-99-3903Udvhqeo (U)clearInvalid Interpretation CodeClearBlanloma linda university medical center-east [place] Color (U)yellowInvalid Interpretation Codeyellow [place] Ketones Ql (U)1+Invalid Interpretation CodeNegative [place] Leukocyte esterase Test strip Ql (U)NegativeNegative [employer] Specific gravity (U) [Rel density]1.010Invalid Interpretation Code1.003-1.030LimestoneBlued Cardiacon 69-54-0250Yedradqyjda [Mass/Vol]153.0 mg/dL Invalid Interpretation Code0-200[facility] Cholesterol in HDL [Mass/Vol]56.0 mg/dLInvalid Interpretation Hqpv60-108WpkjzimysBlued Cholesterol in LDL [Mass/Vol]80.0 mg/dLInvalid Interpretation Code0-130BlanchBlued Triglyceride [Mass/Vol]84.0 mg/dLInvalid Interpretation Jzjq32-839FqapepmapBlued Metabolic Panelon 45-59-9922Rsmogbw [Mass/Vol]4.60 g/dL Invalid Interpretation Code3.7-4.5Bswedish medical center edmondsKitman Labs [facility] ALP [Catalytic activity/Vol]75.0 U/LInvalid Interpretation Nhfm57-192IuhexrgigBlued ALT [Catalytic activity/Vol]54.0 U/LInvalid Interpretation Code0-50LimestoneBlued Anion gap [Moles/Vol]18 mmol/LInvalid Interpretation Dpxr34-15NbiufiacdBlued AST [Catalytic activity/Vol]37.0 U/LInvalid Interpretation Code0-40LimestoneBlued Bilirubin [Mass/Vol]0.50 mg/dLInvalid Interpretation Code0.[email or web address] [facility] Calcium [Mass/Vol]9.40 mg/dLInvalid Interpretation Code 8.5-10.8Bswedish medical center edmondsKitman Labs [facility] Chloride [Moles/Vol]99.0 mmol/LInvalid Interpretation Whhj251-871VeqlokkhyTheVegibox.com [facility] CO2 [Moles/Vol]27.0 mmol/LInvalid Interpretation Code 23-30[facility] Creatinine [Mass/Vol]1.0 mg/dLInvalid Interpretation Code0.5-1.5BPresentain [facility] GFR/1.73 sq M predicted among non-blacks MDRD (S/P/Bld) [Vol rate/Area]78 mL/min/{1.73_m2}Invalid Interpretation CodeEssence Group Holdings Glucose [Mass/Vol]120.0 mg/dLInvalid Interpretation Jgnp31-373QgqmbojxgMyHealthTeams HbA1c (Bld) [Mass fraction]6.80 %Invalid Interpretation Code4.3-6.3B[facility] young medical centerNoiseFree Potassium [Moles/Vol]4.0 mmol/LInvalid Interpretation Code3.5-5.3Bhow[facility] young medical centerNoiseFree Protein [Mass/Vol]7.80 g/dLInvalid Interpretation Code 6.3-7.9BMOOI Sodium [Moles/Vol]140.0 mmol/LInvalid Interpretation Ikns602-532CakovpggbMyHealthTeams Urea nitrogen [Mass/Vol]13.0 mg/dLInvalid Interpretation Code7-25[facility] Urea nitrogen/Creatinine [Mass ratio]13 mg/mgInvalid Interpretation Code6-20[facility] Otheron 41-39-6938Bjphyry (U) [Mass/Vol]22.3Invalid Interpretation Code<17.0[facility] Albumin/Globulin [Mass ratio]1.4 {ratio}Invalid Interpretation Code1.0-2.4BMOOI Cholesterol in VLDL [Mass/Vol]17.0 mg/dLInvalid Interpretation Code0-39[facility] Cholesterol.total/Cholesterol in HDL [Mass ratio]3 {ratio}Invalid Interpretation CodeEssence Group Holdings 148[facility] [employer] 148.0 mg/dLInvalid Interpretation CodeEssence Group Holdings 54.0 U/L0-50LimestoneBlued Urinalysison 75-37-0430Vibvtrq/Creatinine DL <= 20 mg/L (U) [Mass ratio]29.8 mg/gInvalid Interpretation Code0.0-30.0LimestoneBlued Creatinine (U) [Mass/Vol]74.90 mg/dLInvalid Interpretation CodeNot Estab. mg/dLBsycamore medical center [place] Metabolic Panelon 99-81-5377Imgvj gap [Moles/Vol]16 mmol/LInvalid Interpretation Ogmd27-13RedjfyojgBlued Calcium [Mass/Vol]9.70 mg/dLInvalid Interpretation Code 8.5-10.8Bswedish medical center edmondsBricsnet Chloride [Moles/Vol]100.0 mmol/LInvalid Interpretation Eoco167-533OqsqjwfyiBlued CO2 [Moles/Vol]27.0 mmol/LInvalid Interpretation Code 23-30LimestoneBlued Creatinine [Mass/Vol]1.10 mg/dLInvalid Interpretation Code0.5-1.5Bswedish medical center edmondsBricsnet GFR/1.73 sq M predicted among non-blacks MDRD (S/P/Bld) [Vol rate/Area]70 mL/min/{1.73_m2}Invalid Interpretation CodeLimestoneBlued Glucose [Mass/Vol]137.0 mg/dLInvalid Interpretation Fcfj36-289CaglufuaeBlued Potassium [Moles/Vol]4.0 mmol/LInvalid Interpretation Code3.5-5.3Bhoward young medical centerNoiseFree Sodium [Moles/Vol]139.0 mmol/LInvalid Interpretation Pryi351-395EpifjlaxoTheVegibox.com [facility] Urea nitrogen [Mass/Vol]26.0 mg/dLInvalid Interpretation Code7-25LimestoneBlued Urea nitrogen/Creatinine [Mass ratio]24 mg/mgInvalid Interpretation Code6-20LimestoneTheVegibox.com [facility] Laboratory - Chemistry and Chemistry - challengeon 26-53-2591Ztipdfjzn Ql (U)NegativeInvalid Interpretation CodeNegativeLimestoneTheVegibox.com [facility] Ketones Ql (U)NegativeInvalid Interpretation Code NegativeLimestoneBlued Urobilinogen (U) [Mass/Vol]normalInvalid Interpretation CodenormalLimestoneTheVegibox.com [facility] Laboratory - Urinalysison 71-71-2846Sijrspt Ql (U) NegativeInvalid Interpretation CodeNegativeLimestoneTheVegibox.com [facility] Metabolic Panelon 32-10-3625Xdbaa gap [Moles/Vol]18 mmol/LInvalid Interpretation Opql64-52OmdgafztiAmbient Corporation [facility] Calcium [Mass/Vol]9.70 mg/dLInvalid Interpretation Code 8.5-10.8Bswedish medical center edmondsBricsnet Chloride [Moles/Vol]97.0 mmol/LInvalid Interpretation Jtee320-447XdryixxjmTheVegibox.com [facility] CO2 [Moles/Vol]25.0 mmol/LInvalid Interpretation Code 23-30[facility] Creatinine [Mass/Vol]2.30 mg/dLInvalid Interpretation Code0.5-1.5Bhoward young medical centerNoiseFree GFR/1.73 sq M predicted among non-blacks MDRD (S/P/Bld) [Vol rate/Area]30 mL/min/{1.73_m2}Invalid Interpretation CodeMyHealthTeams Glucose [Mass/Vol]231.0 mg/dLInvalid Interpretation Fzrk59-608SvnfeuiawEssence Group Holdings HbA1c (Bld) [Mass fraction]7.60 %Invalid Interpretation Code4.3-6.3BThe Football Social Clubkettering health greene memorialBricsnet Potassium [Moles/Vol]4.50 mmol/LInvalid Interpretation Code3.5-5.3Bswedish medical center edmondsBricsnet Sodium [Moles/Vol]135.0 mmol/LInvalid Interpretation Mpxi740-341RfmhyliavMyHealthTeams Urea nitrogen [Mass/Vol]34.0 mg/dLInvalid Interpretation Code7-25LimestoneBlued Urea nitrogen/Creatinine [Mass ratio]15 mg/mgInvalid Interpretation Code6-20[facility] Otheron 42-91-5567Pwbsdrees Ql (U)NegativeNegative [facility] [employer] [facility] Gamma glutamyl transferase [Catalytic activity/Vol]72 U/LInvalid Interpretation Code7-51LimestoneBlued Glucose Test strip (U) [Mass/Vol]4+Invalid Interpretation CodeNegativeEssence Group Holdings Hemoglobin Ql (U)TraceInvalid Interpretation Code NegativeMyHealthTeams Nitrite Ql (U)NegativeNegativeMyHealthTeams pH (U)5 [pH]Invalid Interpretation Code5.0-9.0[facility] Protein Ql (U)1+Invalid Interpretation CodeNegative [facility] [employer] Urobilinogen Test strip (U) [Mass/Vol]normalnormal [facility] 171BlanchBlued 171.0 mg/dLInvalid Interpretation CodeLimestoneBlued Urinalysison 21-53-4962Ixlccex (U)ClearInvalid Interpretation CodeClearBlanloma linda university medical center-[facility] [place] Color (U)yellowInvalid Interpretation Codeyellow [place] Ketones Ql (U)NegativeNegativeLimestoneBlued Leukocyte esterase Test strip Ql (U)TraceInvalid Interpretation CodeNegativeLimestoneBlued Specific gravity (U) [Rel density]1.015Invalid Interpretation Code1.003-1.030LimestoneBlued Cardiacon 05-58-8651Zjdfiaytwzu [Mass/Vol]164.0 mg/dL Invalid Interpretation Code0-200[facility] [employer] Cholesterol in HDL [Mass/Vol]33.0 mg/dLInvalid Interpretation Ckhu05-651BxdxqpzfeBlued Cholesterol in LDL [Mass/Vol]89.0 mg/dLInvalid Interpretation Code0-130[facility] [employer] Triglyceride [Mass/Vol]208.0 mg/dLInvalid Interpretation Wkzn80-008BghhozvkvMyHealthTeams Hematologyon 19-94-0644Kfsoeuturn (Bld) [Volume fraction]44.80 %Invalid Interpretation Code37.8-51.0[facility] [employer] Hemoglobin (Bld) [Mass/Vol]15.30 g/dLInvalid Interpretation Code12.6-17.0[facility] [employer] MCH (RBC) [Entitic mass]31.40 pgInvalid Interpretation Code25.7-33.8BMOOI MCV (RBC) [Entitic vol]92.0 fLInvalid Interpretation Code81.0-100.2BMOOI Platelets (Bld) [#/Vol]316.0 10*3/uLInvalid Interpretation Udnj641-041YhyrybppnMyHealthTeams RBC (Bld) [#/Vol]4.870 10*6/uLInvalid Interpretation Code4.34-5.61[facility] WBC (Bld) [#/Vol]8.50 10*3/uLInvalid Interpretation Code3.9-10.3BMOOI Imm/Pathon 21-73-5492Nckzxuxo specific Ag [Mass/Vol] 0.59 ng/mLInvalid Interpretation Code0.00-4.00[facility] Laboratory - Chemistry and Chemistry - challengeon 89-79-4151Wwpuhjomm Ql (U)NegativeInvalid Interpretation CodeNegativeEssence Group Holdings Ketones Ql (U)NegativeInvalid Interpretation Code NegativeEssence Group Holdings Urobilinogen (U) [Mass/Vol]normalInvalid Interpretation CodenormalEssence Group Holdings Laboratory - Hematology and Cell countson 05-22-2019 Hemoglobin Ql (U)NegativeInvalid Interpretation CodeNegativeEssence Group Holdings Laboratory - Urinalysison 28-23-5627Qlbbkyzit esterase Test strip Ql (U)NegativeInvalid Interpretation CodeNegativeEss[facility] Group Holdings Nitrite Ql (U)NegativeInvalid Interpretation Code NegativeEssence Group Holdings Protein Ql (U)NegativeInvalid Interpretation Code NegativeMyHealthTeams Metabolic Panelon 82-50-2474Uqqfdul [Mass/Vol]4.30 g/dL Invalid Interpretation Code3.7-4.5BMOOI ALP [Catalytic activity/Vol]79.0 U/LInvalid Interpretation Tbdd83-931DjydsurfcMyHealthTeams ALT [Catalytic activity/Vol]23.0 U/LInvalid Interpretation Code0-50[facility] Anion gap [Moles/Vol]16 mmol/LInvalid Interpretation Brvo00-21CwhnyjjtzMyHealthTeams AST [Catalytic activity/Vol]15.0 U/LInvalid Interpretation Code0-40[facility] [employer] Bilirubin [Mass/Vol]0.40 mg/dLInvalid Interpretation Code0.0-1.0[facility] Calcium [Mass/Vol]9.60 mg/dLInvalid Interpretation Code 8.5-10.8BMOOI Chloride [Moles/Vol]97.0 mmol/LInvalid Interpretation Dlqk074-442ZlzictoyxEssence Group Holdings CO2 [Moles/Vol]27.0 mmol/LInvalid Interpretation Code 23-30[facility] [employer] Creatinine [Mass/Vol]1.10 mg/dLInvalid Interpretation Code0.5-1.5BMOOI GFR/1.73 sq M predicted among non-blacks MDRD (S/P/Bld) [Vol rate/Area]70 mL/min/{1.73_m2}Invalid Interpretation CodeEssence Group Holdings Glucose [Mass/Vol]101.0 mg/dLInvalid Interpretation Okzq62-087MtbecxfzbEssence Group Holdings Potassium [Moles/Vol]4.30 mmol/LInvalid Interpretation Code3.5-5.3BMOOI Protein [Mass/Vol]7.60 g/dLInvalid Interpretation Code 6.3-7.9BMOOI Sodium [Moles/Vol]136.0 mmol/LInvalid Interpretation Emma674-524XabcoknjlEssence Group Holdings Urea nitrogen [Mass/Vol]21.0 mg/dLInvalid Interpretation Code7-25[facility] [employer] Urea nitrogen/Creatinine [Mass ratio]19 mg/mgInvalid Interpretation Code6-20[facility] [employer] Otheron 56-62-4010Ccmqrck/Globulin [Mass ratio]1.3 {ratio}Invalid Interpretation Code1.0-2.4BMOOI Bilirubin Ql (U)NegativeNegativeEssence Group Holdings Cholesterol in VLDL [Mass/Vol]42.0 mg/dLInvalid Interpretation Code0-39[facility] [employer] Cholesterol.total/Cholesterol in HDL [Mass ratio]5 {ratio}Invalid Interpretation TPACK Collection time (Andrei) [Date/time]1:00 pmInvalid Interpretation CodeEssence Group Holdings Erythrocyte distribution width (RBC) [Ratio]12.40 % Invalid Interpretation Code11.5-15.5BMOOI Glucose Test strip (U) [Mass/Vol]4+Invalid Interpretation CodeNegativeEssence Group Holdings Hemoglobin Ql (U)NegativeNegativeLimestoneBlued MCHC (RBC) [Mass/Vol]34.20 g/dLInvalid Interpretation Code32.0-36.0LimestoneBlued Nitrite Ql (U)NegativeNegativeLimestoneBlued pH (U)5 [pH]Invalid Interpretation Code5.0-9.0LimestoneBlued Platelet mean volume (Bld) [Entitic vol]9.40 fLInvalid Interpretation Code8.3-11.5Bsycamore medical center [place] Protein Ql (U)NegativeNegUNC Health ChathamBlued Urobilinogen Test strip (U) [Mass/Vol]normalnormal [employer] 23.0 U/L0-50LimestoneBlued Urinalysison 51-46-2954Svnsrnm (U)ClearInvalid Interpretation CodeClearBsycamore medical center [place] Color (U)yellowInvalid Interpretation Codeyellow [employer] Ketones Ql (U)NegativeNegativeLimestoneBlued Leukocyte esterase Test strip Ql (U)NegativeNegative [employer] Specific gravity (U) [Rel density]1.015Invalid Interpretation Code1.003-1.030LimestoneBlued Laboratory - Chemistry and Chemistry - challengeon 93-71-0804Pmnqylhjk Ql (U)NegativeInvalid Interpretation CodeNegUNC Health ChathamBlued Urobilinogen (U) [Mass/Vol]normalInvalid Interpretation CodenormalLimestoneBlued Laboratory - Hematology and Cell countson 04-09-2019 Hemoglobin Ql (U)NegativeInvalid Interpretation CodeNegativeMyHealthTeams Laboratory - Urinalysison 19-41-5379Pnhhoxbgt esterase Test strip Ql (U)NegativeInvalid Interpretation CodeNegativeLimestoneBlued Nitrite Ql (U)NegativeInvalid Interpretation Code NegativeMyHealthTeams Metabolic Panelon 14-26-3435Sahfqxk [Mass/Vol]4.50 g/dL Invalid Interpretation Code3.7-4.5Bswedish medical center edmondsBricsnet ALP [Catalytic activity/Vol]73.0 U/LInvalid Interpretation Puna11-593DluvwgwtrMyHealthTeams ALT [Catalytic activity/Vol]47.0 U/LInvalid Interpretation Code0-50LimestoneBlued Anion gap [Moles/Vol]17 mmol/LInvalid Interpretation Gayl43-20ZgfgchviqMyHealthTeams AST [Catalytic activity/Vol]41.0 U/LInvalid Interpretation Code0-40LimestoneBlued Bilirubin [Mass/Vol]0.50 mg/dLInvalid Interpretation Code0.0-1.0[facility] Calcium [Mass/Vol]9.30 mg/dLInvalid Interpretation Code 8.5-10.8Bhow[facility] young medical centerNoiseFree Chloride [Moles/Vol]97.0 mmol/LInvalid Interpretation Gpwv805-520LfidkgtlxMyHealthTeams CO2 [Moles/Vol]27.0 mmol/LInvalid Interpretation Code 23-30[facility] [employer] Creatinine [Mass/Vol]0.90 mg/dLInvalid Interpretation Code0.5-1.5BMOOI GFR/1.73 sq M predicted among non-blacks MDRD (S/P/Bld) [Vol rate/Area]88 mL/min/{1.73_m2}Invalid Interpretation CodeMyHealthTeams Glucose [Mass/Vol]186.0 mg/dLInvalid Interpretation Ogiq44-990RciwalmtsEssence Group Holdings HbA1c (Bld) [Mass fraction]7.70 %Invalid Interpretation Code4.3-6.3BMOOI Potassium [Moles/Vol]4.0 mmol/LInvalid Interpretation Code3.5-5.3BMOOI Protein [Mass/Vol]7.60 g/dLInvalid Interpretation Code 6.3-7.9BMOOI Sodium [Moles/Vol]137.0 mmol/LInvalid Interpretation Zspb290-791QtpbnlywgEssence Group Holdings Urea nitrogen [Mass/Vol]16.0 mg/dLInvalid Interpretation Code7-25[facility] [employer] Urea nitrogen/Creatinine [Mass ratio]18 mg/mgInvalid Interpretation Code6-20[facility] Otheron 51-55-8116Diltutf (U) [Mass/Vol]48.5Invalid Interpretation Code<17.0[facility] [employer] Albumin/Globulin [Mass ratio]1.5 {ratio}Invalid Interpretation Code1.0-2.4BMOOI Bilirubin Ql (U)NegativeNegativeMyHealthTeams Gamma glutamyl transferase [Catalytic activity/Vol]52 U/LInvalid Interpretation Code7-51[place] Glucose Test strip (U) [Mass/Vol]4+Invalid Interpretation CodeNegativeLimestoneBlued Hemoglobin Ql (U)NegativeNegativeS[place] Nitrite Ql (U)NegativeNegativeS[place] pH (U)6 [pH]Invalid Interpretation Code5.0-9.0[place] [employer] [facility] Protein Ql (U)1+Invalid Interpretation CodeNegative [place] [employer] [facility] Urobilinogen Test strip (U) [Mass/Vol]normalnormal [place] 174BlanchBlued 47.0 U/L0-50[place] [employer] [facility] 174.0 mg/dLInvalid Interpretation CodeLimestoneTheVegibox.com [facility] Urinalysison 48-44-0298Amoiqhn/Creatinine DL <= 20 mg/L (U) [Mass ratio]70.7 mg/gInvalid Interpretation Code0.0-30.0[place] [employer] [facility] Clarity (U)clearInvalid Interpretation CodeClear [place] Color (U)yellowInvalid Interpretation Codeyellow [place] [employer] [facility] Creatinine (U) [Mass/Vol]68.60 mg/dLInvalid Interpretation CodeNot Estab. mg/dLBlanloma linda university medical center-east [place] Ketones Ql (U)2+Invalid Interpretation CodeNegative [employer] Leukocyte esterase Test strip Ql (U)NegativeNegative [employer] Specific gravity (U) [Rel density]1.010Invalid Interpretation Code1.003-1.030[place] Laboratory - Chemistry and Chemistry - challengeon 76-22-2102Kxwcwztzk Ql (U)NegativeInvalid Interpretation CodeNegativeS[place] Urobilinogen (U) [Mass/Vol]normalInvalid Interpretation CodenormalS[place] Laboratory - Hematology and Cell countson 12-08-2018 Hemoglobin Ql (U)NegativeInvalid Interpretation CodeNegativeLimestoneBlued Laboratory - Urinalysison 32-63-7927Cezzxwobn esterase Test strip Ql (U)NegativeInvalid Interpretation CodeNegUNC Health ChathamBlued Nitrite Ql (U)NegativeInvalid Interpretation Code NegativeLimestoneBlued Protein Ql (U)NegativeInvalid Interpretation Code NegativeLimestoneBlued Metabolic Panelon 46-73-6707Mzfepxu mass rbga489.0 mg/dLInvalid Interpretation Ouks46-045MtzqlojuvBlued Hemoglobin A1c/Hemoglobin.total mass fraction (Bld)8.80 %Invalid Interpretation Code4.3-6.3Blanloma linda university [facility] center[facility] [place] Otheron 62-69-9208Raifxoqpr Ql (U)NegativeNegative [place] Glucose Test strip mass conc (U)4+Invalid Interpretation CodeNegativeLimestoneBlued Hemoglobin Ql (U)NegativeNegativeLimestoneBlued Nitrite Ql (U)NegativeNegUNC Health ChathamBlued pH (U)6 [pH]Invalid Interpretation Code5.0-9.0[facility] Protein Ql (U)NegativeNegativeMyHealthTeams Urobilinogen Test strip mass conc (U)normalnormal [employer] 206[facility] 206.0 mg/dLInvalid Interpretation CodeMyHealthTeams Urinalysison 92-60-0653Qirxbcz Nom (U)ClearInvalid Interpretation CodeClearBlanloma linda university medical center-east [place] Color Nom (U)yellowInvalid Interpretation Codeyellow [employer] Ketones Ql (U)1+Invalid Interpretation CodeNegative [facility] Leukocyte esterase Test strip Ql (U)NegativeNegative [employer] Specific gravity Relative Density (U)1.015Invalid Interpretation Code1.003-1.030[facility] Cardiacon 17-89-7825Icnafxhryqk in HDL mass conc35.0 mg/dLInvalid Interpretation Giik54-753QrlndpdfkEssence Group Holdings Cholesterol in LDL mass conc90.0 mg/dLInvalid Interpretation Code0-130[facility] Cholesterol mass gyqc283.0 mg/dLInvalid Interpretation Code0-200[facility] Triglyceride mass hxmy812.0 mg/dLInvalid Interpretation Lwnx58-865CxjpqfuvpMyHealthTeams Hematologyon 05-57-0176Tyrujzuqco Volume Fraction (Bld) 44.0 %Invalid Interpretation Code37.8-51.0[facility] Hemoglobin mass conc (Bld)15.20 g/dLInvalid Interpretation Code12.6-17.0LimestoneBlued MCH Entitic mass (RBC)32.0 pgInvalid Interpretation Code25.7-33.8Bswedish medical center edmondsBricsnet MCV Entitic volume (RBC)92.60 fLInvalid Interpretation Code81.0-100.2Bswedish medical center edmondsBricsnet Platelets #/vol (Bld)244.0 10*3/uLInvalid Interpretation Pzuc414-543QxqohjdzkBlued RBC #/vol (Bld)4.750 10*6/uLInvalid Interpretation Code 4.34-5.61LimestoneBlued WBC #/vol (Bld)6.80 10*3/uLInvalid Interpretation Code 3.9-10.3Bhoward young medical centerNoiseFree Imm/Pathon 86-02-9952Vqpunldq specific Ag mass conc0.61 ng/mLInvalid Interpretation Code0.00-4.00LimestoneBlued Metabolic Panelon 67-55-2337Tjyqrsm mass conc4.50 g/dL Invalid Interpretation Code3.7-4.5Bhoward young medical centerNoiseFree ALP enzyme act/vol75.0 U/LInvalid Interpretation Code 31-155LimestoneBlued ALT enzyme act/vol66.0 U/LInvalid Interpretation Code 0-50[facility] Anion gap molar conc20 mmol/LInvalid Interpretation Qsbw00-27IdcpddnpoBlued AST enzyme act/vol39.0 U/LInvalid Interpretation Code 0-40[employer] Bilirubin mass conc0.40 mg/dLInvalid Interpretation Code0.0-1.0LimestoneBlued Calcium mass conc9.40 mg/dLInvalid Interpretation Code 8.5-10.8[facility] [place] Chloride molar conc96 mmol/LInvalid Interpretation Code [email or web address] [facility] CO2 molar conc28 mmol/LInvalid Interpretation Mptj97-64 [place] [employer] [facility] Creatinine mass conc0.90 mg/dLInvalid Interpretation Code0.5-1.5Bsy[facility] [place] GFR/1.73 sq M predicted among non-blacks MDRD vol rate/area (S/P/Bld)88 mL/min/{1.73_m2}Invalid Interpretation [email or web address] [facility] Glucose mass dukb680.0 mg/dLInvalid Interpretation Code 80-117LimestoneBlued Hemoglobin A1c/Hemoglobin.total mass fraction (Bld) 10.50 %Invalid Interpretation Code4.3-6.3Bswedish medical center edmondsBricsnet Potassium molar conc4.1 mmol/LInvalid Interpretation Code3.5-5.3Bs[facility] [place] Protein mass conc7.60 g/dLInvalid Interpretation Code 6.3-7.9Bs[facility] [employer] [facility] Sodium molar uhhz991 mmol/LInvalid Interpretation Code 135-148LimestoneBlued Urea nitrogen mass conc13.0 mg/dLInvalid Interpretation Code7-25Lim[facility]Blued Urea nitrogen/Creatinine mass ratio14 mg/mgInvalid Interpretation Code6-20LimestoneBlued No Panel Informationon 92-86-63100903Sppkowx Interpretation Raxx999-780AznavaedqBricsnet Otheron 52-72-5239Tdznjcp mass conc (U)64.2Invalid Interpretation Code<17.0LimestoneBlued Albumin/Globulin mass ratio1.5 {ratio}Invalid Interpretation Code1.0-2.4B[facility] centerNoiseFree Cholesterol in VLDL mass conc79.0 mg/dLInvalid Interpretation Code0-39LimestoneBlued Cholesterol.total/Cholesterol in HDL mass ratio6 {ratio}Invalid Interpretation CodeLimestoneBlued Cobalamin (Vitamin B12) mass ylkf2272 pg/pF017-217 [place] Erythrocyte distribution width Ratio (RBC)11.70 % Invalid Interpretation Code11.5-15.5BMOOI MCHC mass conc (RBC)34.50 g/dLInvalid Interpretation Code32.0-36.0LimestoneBlued Platelet mean volume Entitic volume (Bld)9.80 fLInvalid Interpretation Code8.3-11.5BMOOI 255BlanchBlued 18.9Invalid Interpretation Code>5.4BMOOI 255.0 mg/dLInvalid Interpretation CodeLimestoneBlued 66.0 U/L0-50LimestoneBlued Urinalysison 58-44-3368Oztqdhx/Creatinine DL <= 20 mg/L mass ratio (U)334.4 mg/gInvalid Interpretation Code0.0-30.0[facility] Creatinine mass conc (U)19.20 mg/dLInvalid Interpretation CodeNot Estab. mg/dLBhoward young medical centerNoiseFree Laboratory - Urinalysison 48-05-5785Drjsmoq Test strip (U) [Mass/Vol]NegativeInvalid Interpretation CodenegativeMyHealthTeams Protein (U) [Mass/Vol]NegativeInvalid Interpretation CodenegativeLimestoneBlued Metabolic Panelon 20-27-5495Jhdmwje mass zgwf348.0 mg/dLInvalid Interpretation Bbbn35-176IcguyfrpaMyHealthTeams Hemoglobin A1c/Hemoglobin.total mass fraction (Bld)9.50 %Invalid Interpretation Code4.3-6.3B[facility] centerNoiseFree Otheron 90-18-1396Vqniscy Test strip mass conc (U) NegativenegativeMyHealthTeams 226BlanchBlued 226.0 mg/dLInvalid Interpretation CodeMyHealthTeams Urinalysison 76-47-0269Ajmshwz mass conc (U)Negative negativeLimestoneBlued Cardiacon 20-83-5673Cjykzwemtsx in HDL mass conc30.0 mg/dLInvalid Interpretation Srkt73-932FjzlouohiMyHealthTeams Cholesterol mass obvc013.0 mg/dLInvalid Interpretation Code0-200[facility] Triglyceride mass mqnw261.0 mg/dLInvalid Interpretation Rrms12-849BwlknzflrMyHealthTeams Metabolic Panelon 42-30-1843Ngkdoid mass conc4.50 g/dL Invalid Interpretation Code3.7-4.5BMOOI ALP enzyme act/vol83.0 U/LInvalid Interpretation Code 31-155[place] [employer] [facility] ALT enzyme act/vol49.0 U/LInvalid Interpretation Code 0-50LimestoneBlued Anion gap molar conc20 mmol/LInvalid Interpretation Yhic20-19[place] [employer] [facility] AST enzyme act/vol22.0 U/LInvalid Interpretation Code 0-40Lim[facility]Blued Bilirubin mass conc0.70 mg/dLInvalid Interpretation [email or web address] Calcium mass conc9.70 mg/dLInvalid Interpretation Code 8.5-10.8Bs[facility] [place] Chloride molar conc93 mmol/LInvalid Interpretation Code [email or web address] CO2 molar conc27 mmol/LInvalid Interpretation Agyb31-11 [place] [employer] [facility] Creatinine mass conc0.90 mg/dLInvalid Interpretation Code0.5-1.5Bs[facility] [employer] [facility] GFR/1.73 sq M predicted among non-blacks MDRD vol rate/area (S/P/Bld)88 mL/min/{1.73_m2}Invalid Interpretation CodeLimestoneBlued Glucose mass myni395.0 mg/dLInvalid Interpretation Code [email or web address] Hemoglobin A1c/Hemoglobin.total mass fraction (Bld)10.0 %Invalid Interpretation Code4.3-6.3Bsw[facility] center edmondsBricsnet Potassium molar conc4.0 mmol/LInvalid Interpretation Code3.5-5.3Bsw[facility] medical center edmondsBricsnet Protein mass conc7.70 g/dLInvalid Interpretation Code 6.3-7.9B[facility] centerNoiseFree Sodium molar skxx951 mmol/LInvalid Interpretation Code 135-148[facility] Urea nitrogen mass conc13.0 mg/dLInvalid Interpretation Code7-25LimestoneBlued Urea nitrogen/Creatinine mass ratio14 mg/mgInvalid Interpretation Code6-20LimestoneBlued Otheron 16-30-2122Choaxvw mass conc (U)141.8Invalid Interpretation Code<17.0[facility] Albumin/Globulin mass ratio1.4 {ratio}Invalid Interpretation Code1.0-2.4B[facility] centerNoiseFree Cholesterol in VLDL mass xqyc203.0 mg/dLInvalid Interpretation Code0-39[facility]Bl[facility] Cholesterol.total/Cholesterol in HDL mass ratio9 {ratio}Invalid Interpretation CodeMyHealthTeams 240BlanchBlued 49.0 U/L0-50LimestoneBlued 240.0 mg/dLInvalid Interpretation CodeLimestoneBlued Urinalysison 33-36-6071Faxelkg/Creatinine DL <= 20 mg/L mass ratio (U)179.5 mg/gInvalid Interpretation Code0.0-30.0[facility] Creatinine mass conc (U)79.0 mg/dLInvalid Interpretation CodeNot Estab. mg/dLBhoward young medical centerNoiseFree Laboratory - Chemistry and Chemistry - challengeon 68-99-3431Vqkibmcjt Ql (U)NegativeInvalid Interpretation CodeNegativeMyHealthTeams Ketones Ql (U)NegativeInvalid Interpretation Code NegativeLimestoneBlued Urobilinogen (U) [Mass/Vol]normalInvalid Interpretation CodenormalS[place] Laboratory - Hematology and Cell countson 11-25-2017 Hemoglobin Ql (U)NegativeInvalid Interpretation CodeNegativeS[place] Laboratory - Urinalysison 05-05-1032Lvzexqohz esterase Test strip Ql (U)NegativeInvalid Interpretation CodeNegativeLimestoneBlued Nitrite Ql (U)NegativeInvalid Interpretation Code NegativeLimestoneBlued Protein Ql (U)NegativeInvalid Interpretation Code NegativeLimestoneBlued Metabolic Panelon 56-98-2829Qoynziv mass fuul277.0 mg/dLInvalid Interpretation Nynq47-849Nmtwiiual [place] Hemoglobin A1c/Hemoglobin.total mass fraction (Bld)8.60 %Invalid Interpretation Code4.3-6.3Bsycamore medical center [place] Otheron 26-63-9459Kdpscnatx Ql (U)NegativeNegative [place] [employer] [facility] Glucose Test strip mass conc (U)4+Invalid Interpretation CodeNegativeLimestoneBlued Hemoglobin Ql (U)NegativeNegativeLimestoneBlued Nitrite Ql (U)NegativeNegUNC Health ChathamBlued pH (U)5 [pH]Invalid Interpretation Code4.5-7.8Bsw[facility] center edmondsBricsnet Protein Ql (U)NegativeNegUNC Health ChathamBlued Urobilinogen Test strip mass conc (U)normalnormal [employer] [id number] 200.0 mg/dLInvalid Interpretation CodeLimestoneBlued Urinalysison 70-55-9338Mzxeokr Nom (U)ClearInvalid Interpretation CodeClearBlanloma linda university medical center-[facility] [place] Color Nom (U)yellowInvalid Interpretation Codeyellow [place] Ketones Ql (U)NegativeNegativeLimestoneBlued Leukocyte esterase Test strip Ql (U)NegativeNegative [employer] Specific gravity Relative Density (U)1.010Invalid Interpretation Code1.003-1.029LimestoneBlued [facility] 00-66-5327Yldnqglfwoq in HDL mass conc39.0 mg/dLInvalid Interpretation Civw21-196WgayoffyaMyHealthTeams Cholesterol in LDL mass tlcb797.0 mg/dLInvalid Interpretation Code0-130Lim[facility]Blued Cholesterol mass vckh361.0 mg/dLInvalid Interpretation Code0-200Lim[facility]Blued Triglyceride mass zsvp509.0 mg/dLInvalid Interpretation Luri27-514TibsdunqzBlued Metabolic Panelon 47-93-8287PLD enzyme act/vol52.0 U/L Invalid Interpretation Code0-50[facility] Anion gap molar conc17 mmol/LInvalid Interpretation Fhes73-36ZlzgzboaaMyHealthTeams AST enzyme act/vol38.0 U/LInvalid Interpretation Code 0-40[employer] Calcium mass conc9.50 mg/dLInvalid Interpretation Code 8.5-10.8Bsw[facility] medical center edmondsBricsnet Chloride molar conc98 mmol/LInvalid Interpretation Code 100-112LimestoneBlued CO2 molar conc29 mmol/LInvalid Interpretation Brjk78-37 [place] Creatinine mass conc0.90 mg/dLInvalid Interpretation Code0.5-1.5Bswedish medical center edmondsBricsnet GFR/1.73 sq M predicted among non-blacks MDRD vol rate/area (S/P/Bld)88 mL/min/{1.73_m2}Invalid Interpretation CodeLimestoneBlued Glucose mass qvhc145.0 mg/dLInvalid Interpretation Code 80-117LimestoneBlued Hemoglobin A1c/Hemoglobin.total mass fraction (Bld)8.40 %Invalid Interpretation Code4.3-6.3B[facility] medical centerNoiseFree Potassium molar conc3.8 mmol/LInvalid Interpretation Code3.5-5.3Bswedish medical center edmondsBricsnet Sodium molar tmvu226 mmol/LInvalid Interpretation Code 135-148LimestoneBlued Urea nitrogen mass conc16.0 mg/dLInvalid Interpretation Code7-25[facility] Urea nitrogen/Creatinine mass ratio18 mg/mgInvalid Interpretation Code6-20[facility] Otheron 59-79-1029Nefjvtj mass conc (U)160.5Invalid Interpretation Code<17.0[facility] Cholesterol in VLDL mass conc60.0 mg/dLInvalid Interpretation Code0-39[employer] Cholesterol.total/Cholesterol in HDL mass ratio6 {ratio}Invalid Interpretation CodeLimestoneBlued 194[place] 194.0 mg/dLInvalid Interpretation CodeLimestoneBlued 52.0 U/L0-50LimestoneBlued Urinalysison 00-33-8097Prrgrxy/Creatinine DL <= 20 mg/L mass ratio (U)105.5 mg/gInvalid Interpretation Code0.0-30.0LimestoneBlued Creatinine mass conc (U)152.10 mg/dLInvalid Interpretation CodeNot Estab. mg/dLBsycamore medical center [place] Laboratory - Urinalysison 10-22-2225Idlfwjo (U) [Mass/Vol]NegativeInvalid Interpretation CodenegativeLimestoneBlued Metabolic Panelon 62-83-7427Pruyyim mass ltbz420.0 mg/dLInvalid Interpretation Cfjo28-819KkqvudpnnBlued Hemoglobin A1c/Hemoglobin.total mass fraction (Bld)8.30 %Invalid Interpretation Code4.3-6.3Bswedish medical center edmondsBricsnet Otheron 10-77-5310Qxcychr Test strip mass conc (U)trace Invalid Interpretation CodenegativeLimestoneBlued pH (U)6.0 [pH]Invalid Interpretation Code4.5-7.8 [place] 192BlanchBlued 192.0 mg/dLInvalid Interpretation CodeLimestoneBlued Urinalysison 84-50-8011Bebgzzc mass conc (U)Negative negativeLimestoneBlued Laboratory - Chemistry and Chemistry - challengeon 64-39-3424Wziwzlpiq Ql (U)NegativeInvalid Interpretation CodeNegativeEss[employer] Ketones Ql (U)NegativeInvalid Interpretation Code NegativeMyHealthTeams Urobilinogen (U) [Mass/Vol]normalInvalid Interpretation CodenormalLimestoneBlued Laboratory - Hematology and Cell countson 03-29-2017 Hemoglobin Ql (U)NegativeInvalid Interpretation CodeNegativeMicreosnorth central bronx hospitalBlued Laboratory - Urinalysison 19-41-4699Lpweghbyv esterase Test strip Ql (U)NegativeInvalid Interpretation CodeNegativeEss[employer] Nitrite Ql (U)NegativeInvalid Interpretation Code NegativeMyHealthTeams Protein Ql (U)NegativeInvalid Interpretation Code NegativeLimestoneBlued Metabolic Panelon 39-25-8143Grcivxq mass sxqt328.0 mg/dLInvalid Interpretation Saxe86-824TkrpgrjqrMyHealthTeams Hemoglobin A1c/Hemoglobin.total mass fraction (Bld)8.0 %Invalid Interpretation Code4.3-6.3Blanloma linda university medical center-[facility] [place] Otheron 78-26-9674Eyulriq mass conc (U)< 12.0Invalid Interpretation Code< 17.0 ug/mLLimestoneBlued Bilirubin Ql (U)NegativeNegative[employer] Glucose Test strip mass conc (U)4+Invalid Interpretation CodeNegative[employer] Hemoglobin Ql (U)NegativeNegativeEss[employer] Group Holdings Nitrite Ql (U)NegativeNegsouth peninsula hospitalEssence Group Holdings pH (U)6 [pH]Invalid Interpretation Code4.5-7.8Bsycamore medical center [place] Protein Ql (U)NegativeNegativeGood [facility]aritan [facility] BlackBridge [facility] Urobilinogen Test strip mass conc (U)normalnormal [facility] [email or web address] [facility] 183.0 mg/dLInvalid Interpretation [email or web address] [facility] Urinalysison 29-41-8332Mbikuic Nom (U)clearInvalid Interpretation CodeClearBKettering Health Behavioral Medical Center [facility] Color Nom (U)yellowInvalid Interpretation Codeyellow [facility] Creatinine mass conc (U)14.20 mg/dLInvalid Interpretation CodeNot Estab. mg/dLBsycamore medical center [employer] [facility] Ketones Ql (U)NegativeNegativeLimestoneVestagen [employer]iles [place] [facility] Leukocyte esterase Test strip Ql (U)NegativeNegative [facility] Specific gravity Relative Density (U)1.015Invalid Interpretation Code1.003-1.029[place] [employer] [facility] Laboratory - Chemistry and Chemistry - challengeon 14-29-2620Sebvpossp Ql (U)NegativeInvalid Interpretation [email or web address] [facility] Ketones Ql (U)NegativeInvalid Interpretation Code [email or web address] [facility] Urobilinogen (U) [Mass/Vol]normalInvalid Interpretation [email or web address] [facility] Laboratory - Urinalysison 65-81-3998Yaxabhhih esterase Test strip Ql (U)NegativeInvalid Interpretation CodeNegativeLimestoneBlued Nitrite Ql (U)NegativeInvalid Interpretation Code NegativeLimestoneBlued Metabolic Panelon 00-36-5634Scexfco mass bgxy528.0 mg/dLInvalid Interpretation Orgw43-477MnskqbajdBlued Hemoglobin A1c/Hemoglobin.total mass fraction (Bld)6.90 %Invalid Interpretation Code4.3-6.3Bswed[facility] medical center edmondsBricsnet Otheron 92-60-1297Mguqchddo Ql (U)NegativeNegative [employer] Glucose Test strip mass conc (U)4+Invalid Interpretation CodeNegUNC Health [email or web address] [facility] Hemoglobin Ql (U)TraceInvalid Interpretation Code NegativeLimestoneBlued Nitrite Ql (U)N[email or web address] [facility] pH (U)6 [pH]Invalid Interpretation Code4.5-7.8Bsw[facility] medical center edmondsBricsnet Protein Ql (U)1+Invalid Interpretation CodeNegative [employer] [facility] Urobilinogen Test strip mass conc (U)normalnormal [facility]Tele[employer] [facility] [email or web address] [facility] 151.0 mg/dLInvalid Interpretation [email or web address] Urinalysison 71-04-2506Phdtwuj Nom (U)clearInvalid Interpretation CodeClearBswedish medical center edmondsBricsnet Color Nom (U)yellowInvalid Interpretation Codeyellow [employer] Ketones Ql (U)NegativeNegativeMicreosnorth central bronx hospitalBlued Leukocyte esterase Test strip Ql (U)NegativeNegative [facility] [facility] Specific gravity Relative Density (U)1.010Invalid Interpretation Code1.003-1.029LimestoneBlued [facility]acon 02-95-4455Ucmphigowou in HDL mass conc32.0 mg/dLInvalid Interpretation Cvec94-455NvdxnqtvnBlued Cholesterol in LDL mass conc80.0 mg/dLInvalid Interpretation Code0-130LimestoneBlued Cholesterol mass bdfl072.0 mg/dLInvalid Interpretation Code0-200LimestoneBlued Triglyceride mass kcjg538.0 mg/dLInvalid Interpretation Ccfc29-989OwjssotfcBlued Metabolic Panelon 78-57-2528EFW enzyme act/vol48.0 U/L Invalid Interpretation [email or web address] [facility] Anion gap molar conc20 mmol/LInvalid Interpretation Eccd96-47DyigndsahBlued AST enzyme act/vol22.0 U/LInvalid Interpretation Code 0-40LimestoneBlued Calcium mass conc9.70 mg/dLInvalid Interpretation Code 8.5-10.8Bsw[facility] medical center edmondsBricsnet Chloride molar vzey336 mmol/LInvalid Interpretation Gbby473-935WuftojluoBlued CO2 molar conc26 mmol/LInvalid Interpretation Anay67-20 [facility] [facility] Creatinine mass conc1.10 mg/dLInvalid Interpretation Code0.5-1.5Bhow[facility] young medical centerNoiseFree GFR/1.73 sq M predicted among non-blacks MDRD vol rate/area (S/P/Bld)70 mL/min/{1.73_m2}Invalid Interpretation CodeEssence Group Holdings Glucose mass qlbt358.0 mg/dLInvalid Interpretation Code 80-117[employer] Hemoglobin A1c/Hemoglobin.total mass fraction (Bld)7.10 %Invalid Interpretation Code4.3-6.3Bswedish medical center edmondsBricsnet Potassium molar conc4.1 mmol/LInvalid Interpretation Code3.5-5.3Bsw[facility] medical center edmondsBricsnet Sodium molar uhtu693 mmol/LInvalid Interpretation Code 135-148[employer] Urea nitrogen mass conc18.0 mg/dLInvalid Interpretation Code7-25[facility] Urea nitrogen/Creatinine mass ratio16 mg/mgInvalid Interpretation Code6-20[employer] Otheron 88-72-5768Uxvcnexnybr in VLDL mass conc68.0 mg/dLInvalid Interpretation Code0-39[employer] Cholesterol.total/Cholesterol in HDL mass ratio6 {ratio}Invalid Interpretation TPACK 157[employer] 48.0 U/L0-50[facility] 157.0 mg/dLInvalid Interpretation CodeEssence Group Holdings Laboratory - Chemistry and Chemistry - challengeon 32-17-6057Lnfnplayx Ql (U)NegativeInvalid Interpretation CodeNegativeEss[employer] Group [employer] Urobilinogen (U) [Mass/Vol]normalInvalid Interpretation CodenormalEssence Group Holdings Laboratory - Hematology and Cell countson 07-27-2016 Hemoglobin Ql (U)NegativeInvalid Interpretation CodeNegativeEssence Group Holdings Laboratory - Urinalysison 62-11-2084Cgqjlpttr esterase Test strip Ql (U)NegativeInvalid Interpretation CodeNegativeEss[employer] Nitrite Ql (U)NegativeInvalid Interpretation Code NegativeMyHealthTeams Protein Ql (U)NegativeInvalid Interpretation Code NegativeMyHealthTeams Metabolic Panelon 19-33-1408Psfka gap molar conc19 mmol/LInvalid Interpretation Jnlj18-98FzldwnqoyEssence Group Holdings Calcium mass conc9.90 mg/dLInvalid Interpretation Code 8.5-10.8BMOOI Chloride molar conc96 mmol/LInvalid Interpretation Code 100-112[employer] CO2 molar conc29 mmol/LInvalid Interpretation Zahs71-14 [place] Creatinine mass conc1.10 mg/dLInvalid Interpretation Code0.5-1.5BMOOI GFR/1.73 sq M predicted among non-blacks MDRD vol rate/area (S/P/Bld)70 mL/min/{1.73_m2}Invalid Interpretation CodeEssence Group Holdings Glucose mass xjje159.0 mg/dLInvalid Interpretation Code 80-117[employer] Hemoglobin A1c/Hemoglobin.total mass fraction (Bld)7.50 %Invalid Interpretation Code4.3-6.3BMOOI Potassium molar conc3.9 mmol/LInvalid Interpretation Code3.5-5.3BMOOI Sodium molar kagv189 mmol/LInvalid Interpretation Code 135-148LimestoneBlued Urea nitrogen mass conc14.0 mg/dLInvalid Interpretation Code7-25[place] Urea nitrogen/Creatinine mass ratio13 mg/mgInvalid Interpretation Code6-20[place] Otheron 90-17-5451Wdrqyln mass conc (U)< 12.0Invalid Interpretation Code< 17.0 ug/mLLimestoneBlued Bilirubin Ql (U)NegativeNegativeLimestoneBlued Glucose Test strip mass conc (U)4+Invalid Interpretation CodeNegUNC Health [email or web address] [facility] Hemoglobin Ql (U)NegativeNegativeLimestoneBlued Nitrite Ql (U)NegativeNegUNC Health [email or web address] [facility] pH (U)5 [pH]Invalid Interpretation Code4.5-7.8Bsy[facility]ore [facility] center [employer] [facility] Protein Ql (U)NegativeNegativeLimestoneBlued Urobilinogen Test strip mass conc (U)normalnormal [place] [employer] [facility] [email or web address] [facility] 169.0 mg/dLInvalid Interpretation [email or web address] [facility] Thyroidon 90-88-8560P0 mass conc5.55 ug/dLInvalid Interpretation Code5.00-12.00LimestoneBlued Thyrotropin Qn2.71 m[IU]/LInvalid Interpretation Code 0.50-4.00LimestoneBlued Urinalysison 38-94-5733Tnbrktl Nom (U)clearInvalid Interpretation CodeClearBsycamore medical center [place] Color Nom (U)yellowInvalid Interpretation Codeyellow [employer] Creatinine mass conc (U)85.80 mg/dLInvalid Interpretation CodeNot Estab. mg/dLBswedish medical center edmondsBricsnet Ketones Ql (U)1+Invalid Interpretation CodeNegative [employer] Leukocyte esterase Test strip Ql (U)NegativeNegative [employer] Specific gravity Relative Density (U)1.015Invalid Interpretation Code1.003-1.029LimestoneBlued Laboratory - Chemistry and Chemistry - challengeon 71-29-1908Yewtslycv Ql (U)NegativeInvalid Interpretation CodeNegativeLimestoneBlued Ketones Ql (U)NegativeInvalid Interpretation Code NegativeLimestoneBlued Urobilinogen (U) [Mass/Vol]normalInvalid Interpretation CodenormalLimestoneBlued Laboratory - Hematology and Cell countson 03-04-2016 Hemoglobin Ql (U)NegativeInvalid Interpretation CodeNegativeLimestoneBlued Laboratory - Urinalysison 67-97-5814Zsptqzuys esterase Test strip Ql (U)NegativeInvalid Interpretation CodeNegativeEss[employer] Nitrite Ql (U)NegativeInvalid Interpretation Code NegativeEssence Group Holdings Protein Ql (U)NegativeInvalid Interpretation Code NegativeMyHealthTeams Metabolic Panelon 79-79-3061Zrfhc gap molar conc16 mmol/LInvalid Interpretation Wgbb40-11XnprnzmvzEssence Group Holdings Calcium mass conc10.30 mg/dLInvalid Interpretation Code 8.5-10.8BMOOI Chloride molar conc99 mmol/LInvalid Interpretation Code 100-112[facility] CO2 molar conc30 mmol/LInvalid Interpretation Fbnv98-83 [employer] Creatinine mass conc1.0 mg/dLInvalid Interpretation Code0.5-1.5Bhoward young medical centerNoiseFree GFR/1.73 sq M predicted among non-blacks MDRD vol rate/area (S/P/Bld)79 mL/min/{1.73_m2}Invalid Interpretation CodeLimestoneBlued Glucose mass rsvw745.0 mg/dLInvalid Interpretation Code 80-117LimestoneBlued Hemoglobin A1c/Hemoglobin.total mass fraction (Bld)6.70 %Invalid Interpretation Code4.3-6.3Bhoward young medical centerNoiseFree Potassium molar conc4.1 mmol/LInvalid Interpretation Code3.5-5.3BThe Football Social Clubkettering health greene memorialBricsnet Sodium molar azig906 mmol/LInvalid Interpretation Code 135-148LimestoneBlued Urea nitrogen mass conc12.0 mg/dLInvalid Interpretation Code7-25[facility] Urea nitrogen/Creatinine mass ratio12 mg/mgInvalid Interpretation Code6-20[facility] Otheron 16-99-5170Cogasdaql Ql (U)NegativeNegative [employer] Glucose Test strip mass conc (U)4+Invalid Interpretation CodeNegativeLimestoneBlued Hemoglobin Ql (U)NegativeNegativeLimestoneBlued Nitrite Ql (U)NegativeNegativeMicreosnorth central bronx hospitalBlued pH (U)6 [pH]Invalid Interpretation Code4.5-7.8Bsw[facility] medical center edmondsBricsnet Protein Ql (U)NegativeNegativeMicreosnorth central bronx hospitalBlued Urobilinogen Test strip mass conc (U)normalnormal [employer] 146BlanchBlued 146.0 mg/dLInvalid Interpretation [facility] springfieldBlued Urinalysison 80-61-2330Gzamnas Nom (U)clearInvalid Interpretation CodeClearBswedish medical center edmondsBricsnet Color Nom (U)yellowInvalid Interpretation Codeyellow [employer] Ketones Ql (U)NegativeNegativeMicreosnorth central bronx hospitalBlued Leukocyte esterase Test strip Ql (U)NegativeNegative [employer] Specific gravity Relative Density (U)1.015Invalid Interpretation Code1.003-1.029LimestoneBlued Laboratory - Chemistry and Chemistry - challengeon 13-59-1023Zhdedwxim Ql (U)NegativeInvalid Interpretation CodeNegativeEssence Group Holdings Urobilinogen (U) [Mass/Vol]normalInvalid Interpretation CodenormalLimestoneBlued Laboratory - Hematology and Cell countson 11-26-2015 Hemoglobin Ql (U)NegativeInvalid Interpretation CodeNegStretchr Laboratory - Urinalysison 29-83-0411Jdnjioftd esterase Test strip Ql (U)NegativeInvalid Interpretation CodeNegsouth peninsula hospitalBlanchBlued Nitrite Ql (U)NegativeInvalid Interpretation Code NegativeLimestoneBlued Protein Ql (U)NegativeInvalid Interpretation Code [email or web address] [facility] Metabolic Panelon 02-74-0192Itlxkgu mass vzkh820.0 mg/dLInvalid Interpretation Xyzy40-624DsacfgyqcBlued Hemoglobin A1c/Hemoglobin.total mass fraction (Bld)9.70 %Invalid Interpretation Code4.3-6.3Bsycamore [facility] [place] Otheron 04-45-3235Rckbpux mass conc (U)< 12.0Invalid Interpretation Code< 4.0-17.0LimestoneBlued Bilirubin Ql (U)NegativeNegativeLimestoneTheVegibox.com [facility] Glucose Test strip mass conc (U)4+Invalid Interpretation CodeNegativeLimestoneTheVegibox.com [facility] Hemoglobin Ql (U)NegativeNegativeLimestoneBlued Nitrite Ql (U)NegativeNegUNC Health ChathamBlued pH (U)6 [pH]Invalid Interpretation Code4.5-7.8B[facility] edmondsKitman Labs [facility] Protein Ql (U)NegativeNegativeLimestoneTheVegibox.com [facility] Urobilinogen Test strip mass conc (U)normalnormal [place] [employer] [facility] 25299659WfmuvyhhyBlued 232.0 mg/dLInvalid Interpretation CodeLimestoneTheVegibox.com [facility] Thyroidon 53-01-1237K3 mass conc5.77 ug/dLInvalid Interpretation Code5.00-12.00BlanchBlued Thyrotropin Qn2.60 m[IU]/LInvalid Interpretation Code 0.50-4.00[facility] Urinalysison 35-67-1434Qasfoit Nom (U)clearInvalid Interpretation CodeClearBKettering Health Behavioral Medical Center BlackBridge [facility] Color Nom (U)yellowInvalid Interpretation Codeyellow [facility] Creatinine mass conc (U)66.20 mg/dLInvalid Interpretation CodeNot Estab. mg/dLBKettering Health Behavioral Medical Center [facility] Ketones Ql (U)2+Invalid Interpretation CodeNegative [facility] Leukocyte esterase Test strip Ql (U)NegativeNegative [facility] Specific gravity Relative Density (U)1.010Invalid Interpretation Code1.003-1.029[facility] Laboratory - Chemistry and Chemistry - challengeon 13-27-0343Jkvjemvs [Mass/Vol]ug/dLInvalid Interpretation Code3.1-22.4BKettering Health Behavioral Medical Center [facility]Bridge [facility] Otheron 47-17-4325Hquflnuw mass concug/dL3.1-22.4 [place] [employer] [facility] Laboratory - Chemistry and Chemistry - challengeon 66-63-7445Exunfutyy Ql (U)NegativeInvalid Interpretation CodeNegativeGood [facility]ar[facility] Urobilinogen (U) [Mass/Vol]normalInvalid Interpretation CodenormalGood Samaritan Hospital [facility] Laboratory - Hematology and Cell countson 10-29-2015 Hemoglobin Ql (U)NegativeInvalid Interpretation CodeNegativeGood Sam[facility] Hospital [facility] Laboratory - Urinalysison 08-97-4561Rpqtvqdrg esterase Test strip Ql (U)NegativeInvalid Interpretation CodeNegativeLimestoneBlued Nitrite Ql (U)NegativeInvalid Interpretation Code NegativeLimestoneBlued Protein Ql (U)NegativeInvalid Interpretation Code NegativeLimestoneBlued Metabolic Panelon 45-20-2177Qjtag gap molar conc20 mmol/LInvalid Interpretation Ruxb37-22TmknypshiBlued Calcium mass conc9.70 mg/dLInvalid Interpretation Code 8.5-10.8[facility] centerNoiseFree Chloride molar conc96 mmol/LInvalid Interpretation Code 100-112LimestoneBlued CO2 molar conc27 mmol/LInvalid Interpretation Kkdf46-21 [place] Creatinine mass conc0.80 mg/dLInvalid Interpretation Code0.5-1.5B[facility] young medical centerNoiseFree GFR/1.73 sq M predicted among non-blacks MDRD vol rate/area (S/P/Bld)102 mL/min/{1.73_m2}Invalid Interpretation CodeLimestoneBlued Glucose mass lvgm443.0 mg/dLInvalid Interpretation Code 80-117LimestoneBlued Hemoglobin A1c/Hemoglobin.total mass fraction (Bld) 12.60 %Invalid Interpretation Code4.3-6.3B[facility] young medical centerNoiseFree Potassium molar conc3.6 mmol/LInvalid Interpretation Code3.5-5.3BMOOI Sodium molar nerk183 mmol/LInvalid Interpretation Code 135-148[facility] Urea nitrogen mass conc11.0 mg/dLInvalid Interpretation Code7-25LimestoneBlued Urea nitrogen/Creatinine mass ratio14 mg/mgInvalid Interpretation Code6-20LimestoneBlued Otheron 68-88-1980Kzqlsyx mass conc (U)25.9Invalid Interpretation Code0.0-17.0LimestoneTheVegibox.com [facility] Bilirubin Ql (U)NegativeNegativeLimestoneBlued Glucose Test strip mass conc (U)4+Invalid Interpretation CodeNegativeLimestoneBlued Hemoglobin Ql (U)NegativeNegUNC Health ChathamBlued Nitrite Ql (U)NegativeNegUNC Health ChathamBlued pH (U)5 [pH]Invalid Interpretation Code4.5-7.8Bsw[facility] edmondsKitman Labs [facility] Protein Ql (U)NegativeNegativeLimestoneBlued Urobilinogen Test strip mass conc (U)normalnormal [place] [employer] [facility] 315BlanchBlued 315.0 mg/dLInvalid Interpretation CodeLimestoneTheVegibox.com [facility] Urinalysison 92-99-1992Wmubirb/Creatinine DL <= 20 mg/L mass ratio (U)14.7 mg/gInvalid Interpretation Code0.0-30.0LimestoneTheVegibox.com [facility] Clarity Nom (U)clearInvalid Interpretation CodeClear [employer] Color Nom (U)yellowInvalid Interpretation Codeyellow [place] Creatinine mass conc (U)175.60 mg/dLInvalid Interpretation CodeNot Estab. mg/dLBlanchaKitman Labs [facility] Ketones Ql (U)3+Invalid Interpretation CodeNegative [place] [employer] [facility] Leukocyte esterase Test strip Ql (U)NegativeNegative [place] [employer] [facility] Specific gravity Relative Density (U)1.020Invalid Interpretation Code1.003-1.029LimestoneTheVegibox.com [facility] Laboratory - Chemistry and Chemistry - challengeon 68-06-5693Mdwgpebjf Ql (U)NegativeInvalid Interpretation CodeNegativeLimestoneTheVegibox.com [facility] Urobilinogen (U) [Mass/Vol]normalInvalid Interpretation CodenormalS[place] [employer] [facility] Laboratory - Hematology and Cell countson 10-03-2015 Hemoglobin Ql (U)NegativeInvalid Interpretation CodeNegativeLimestoneTheVegibox.com [facility] Laboratory - Urinalysison 24-75-4062Nuntegawm esterase Test strip Ql (U)NegativeInvalid Interpretation CodeNegativeLimestoneTheVegibox.com [facility] Nitrite Ql (U)NegativeInvalid Interpretation Code NegativeLimestoneTheVegibox.com [facility] Protein Ql (U)NegativeInvalid Interpretation Code NegativeLimestoneTheVegibox.com [facility] Metabolic Panelon 20-90-1825Wjvvl gap molar conc24 mmol/LInvalid Interpretation Powg51-18RnrgzddpjTheVegibox.com [facility] Calcium mass conc9.30 mg/dLInvalid Interpretation Code 8.5-10.8Bsycamore medical center [employer] [facility] Chloride molar conc93 mmol/LInvalid Interpretation Code 100-112LimestoneTheVegibox.com [facility] CO2 molar conc23 mmol/LInvalid Interpretation Chtg05-49 [employer] Creatinine mass conc0.90 mg/dLInvalid Interpretation Code0.5-1.5Bsw[facility] center edmondsKitman Labs [facility] GFR/1.73 sq M predicted among non-blacks MDRD vol rate/area (S/P/Bld)89 mL/min/{1.73_m2}Invalid Interpretation CodeLimestoneTheVegibox.com [facility] Glucose mass gckz521.0 mg/dLInvalid Interpretation Code 80-117LimestoneBlued Potassium molar conc4.0 mmol/LInvalid Interpretation Code3.5-5.3Bswedish medical center edmondsBricsnet Sodium molar fnpz451 mmol/LInvalid Interpretation Code 135-148LimestoneBlued Urea nitrogen mass conc13.0 mg/dLInvalid Interpretation Code7-25LimestoneTheVegibox.com [facility] Urea nitrogen/Creatinine mass ratio14 mg/mgInvalid Interpretation Code6-20LimestoneTheVegibox.com [facility] Otheron 92-87-1378Rcmvrquul Ql (U)NegativeNegative [place] [employer] [facility] C peptide mass conc5.0Invalid Interpretation Code 1.1-4.4Bsw[facility] center edmondsKit[facility] Labs [facility] Cortisol mass conc4.0 ug/dLInvalid Interpretation Code 3.1-22.4Bsw[facility] center edmondsKitman Labs [facility] Glucose Test strip mass conc (U)4+Invalid Interpretation CodeNegativeLimestoneTheVegibox.com [facility] Hemoglobin Ql (U)NegativeNegativeLimestoneBlued Nitrite Ql (U)NegativeNegativeLimestoneBlued pH (U)5 [pH]Invalid Interpretation Code4.5-7.8[facility] centerNoiseFree Protein Ql (U)NegativeNegativeLimestoneBlued Urobilinogen Test strip mass conc (U)normalnormal [employer] See AboveInvalid Interpretation Code0-0LimestoneBlued Urinalysison 76-28-4015Smziodx Nom (U)clearInvalid Interpretation CodeClearBswedish medical center edmondsBricsnet Color Nom (U)yellowInvalid Interpretation Codeyellow [employer] Ketones Ql (U)1+Invalid Interpretation CodeNegative [employer] Leukocyte esterase Test strip Ql (U)NegativeNegative [employer] Specific gravity Relative Density (U)1.005Invalid Interpretation Code1.003-1.029LimestoneBlued Hematologyon 53-21-8001Fbzylecwc #/vol (Bld)0.10 10*3/uLInvalid Interpretation Code0.0-0.1Bhow[facility] young medical centerNoiseFree Basophils/100 WBC (Bld)0.70 %Invalid Interpretation Code0.0-1.0[facility] Eosinophils #/vol (Bld)0.30 10*3/uLInvalid Interpretation Code0.0-0.5B[facility] young medical centerNoiseFree Eosinophils/100 WBC (Bld)3.10 %Invalid Interpretation Code0.0-7.0[employer] ESR Velocity (Bld)31 mm/hInvalid Interpretation Code 0-15[employer] Hematocrit Volume Fraction (Bld)39.50 %Invalid Interpretation Code37.8-51.0[employer] Hemoglobin mass conc (Bld)13.10 g/dLInvalid Interpretation Code12.6-17.0[facility] Lymphocytes #/vol (Bld)2.10 10*3/uLInvalid Interpretation Code0.9-3.1Bsycamore medical center [employer] [facility] Lymphocytes/100 WBC (Bld)21.80 %Invalid Interpretation Code15.0-46.0LimestoneTheVegibox.com [facility] MCH Entitic mass (RBC)31.50 pgInvalid Interpretation Code25.7-33.8Bsycamore medical center [employer] [facility] MCV Entitic volume (RBC)94.60 fLInvalid Interpretation Code82.0-98.4Bsycamore medical center [employer] [facility] Monocytes #/vol (Bld)0.70 10*3/uLInvalid Interpretation Code0.3-1.0LimestoneTheVegibox.com [facility] Monocytes/100 WBC (Bld)7.20 %Invalid Interpretation Code4.0-12.0LimestoneTheVegibox.com [facility] Neutrophils #/vol (Bld)6.20 10*3/uLInvalid Interpretation Code1.8-7.9Bsycamore medical center [employer] [facility] Neutrophils/100 WBC (Bld)67.20 %Invalid Interpretation Code43.0-76.0LimestoneTheVegibox.com [facility] Platelets #/vol (Bld)228.0 10*3/uLInvalid Interpretation Ycvl882-251JqhgykiqwTheVegibox.com [facility] RBC #/vol (Bld)4.180 10*6/uLInvalid Interpretation Code 4.34-5.61LimestoneTheVegibox.com [facility] WBC #/vol (Bld)9.40 10*3/uLInvalid Interpretation Code 3.9-10.3Bswed[facility] medical center edmondsBricsnet Metabolic Panelon 51-15-5791Irdwyhp mass concg/dLCLASS 0LimestoneBlued Otheron 27-36-2463Akbjjehfpgn distribution width Ratio (RBC)12.20 %Invalid Interpretation Code11.5-15.5Bswed[facility] medical center edmondsBricsnet Immune complex IgE Yf47Cvonilh Interpretation Code0-100 [place] [employer] [facility] MCHC mass conc (RBC)33.30 g/dLInvalid Interpretation Code32.0-36.0LimestoneBlued Platelet mean volume Entitic volume (Bld)8.50 fLInvalid Interpretation Code7.4-10.4Bsw[facility] medical center edmondsKitman Labs [facility] <0.10Invalid Interpretation CodeCLASS 0LimestoneTheVegibox.com [facility] COMMENTInvalid Interpretation CodeLimestoneTheVegibox.com [facility] Cardiacon 81-36-8978Updqarjjcqg in HDL mass conc60.0 mg/dLInvalid Interpretation Lryl68-744YfqmtjzoeTheVegibox.com [facility] Cholesterol in LDL mass conc58.0 mg/dLInvalid Interpretation Code0-130LimestoneTheVegibox.com [facility] Cholesterol mass uabo113.0 mg/dLInvalid Interpretation Code0-200LimestoneBlued Triglyceride mass kzwy374.0 mg/dLInvalid Interpretation Yibr72-380IfbyohlcfBlued Metabolic Panelon 39-25-5743BSF enzyme act/vol64.0 U/L Invalid Interpretation Code0-50LimestoneBlued Anion gap molar conc18 mmol/LInvalid Interpretation Ebco08-34MbhtxbxwhBlued AST enzyme act/vol39.0 U/LInvalid Interpretation Code 0-40LimestoneBlued Calcium mass conc9.70 mg/dLInvalid Interpretation Code 8.5-10.8Bsw[facility] medical center edmondsBricsnet Chloride molar conc92 mmol/LInvalid Interpretation Code 100-112LimestoneBlued CO2 molar conc26 mmol/LInvalid Interpretation Xlkm03-99 [place] Creatinine mass conc1.70 mg/dLInvalid Interpretation Code0.5-1.5Bswedish medical center edmondsBricsnet GFR/1.73 sq M predicted among non-blacks MDRD vol rate/area (S/P/Bld)43 mL/min/{1.73_m2}Invalid Interpretation CodeLimestoneBlued Glucose mass ajhb476.0 mg/dLInvalid Interpretation Code 80-117LimestoneBlued Hemoglobin A1c/Hemoglobin.total mass fraction (Bld)8.90 %Invalid Interpretation Code4.3-6.3Bsw[facility] medical center edmondsBricsnet Potassium molar conc4.3 mmol/LInvalid Interpretation Code3.5-5.3Bswed[facility] medical center edmondsBricsnet Sodium molar rfoy908 mmol/LInvalid Interpretation Code 135-148[facility] Urea nitrogen mass conc24.0 mg/dLInvalid Interpretation Code7-25[facility] Urea nitrogen/Creatinine mass ratio14 mg/mgInvalid Interpretation Code6-20[facility] Otheron 30-72-1113Dintshw mass conc (U)< 12.0Invalid Interpretation Code< 4.0-17.0LimestoneBlued Cholesterol in VLDL mass conc32.0 mg/dLInvalid Interpretation Code0-39LimestoneBlued Cholesterol.total/Cholesterol in HDL mass ratio3 {ratio}Invalid Interpretation CodeMyHealthTeams [id number] 209.0 mg/dLInvalid Interpretation CodeLimestoneBlued 64.0 U/L0-50LimestoneBlued Urinalysison 90-34-6363Mkyfbhdmqd mass conc (U)186.0 mg/dLInvalid Interpretation CodeNot Estab. mg/dLBlanloma linda university medical center-east [place] Vital Signs Date TimeVital SignValuePerforming BllrjgpgnBeozqoxu83-56-5861 14:02-0400Body dpyviw642.3 Diana Yarbrough MD Work Phone: [phone] [place], [place] [address]Zdrmqaoczc37-44-9815 14:02-0400Body mass index (BMI) [Ratio]34.73 kg/n4TwjnlKimmie Yarbrough MD Work Phone: [phone] HospitalOcvmqgyybq40-72-9800 14:02-0400Body .95 kgKimmie Yarbrough MD Work Phone: [phone] [place], [place] [address]Dleusqpjzw77-67-4584 14:02-0400Heart rate95 /min Kimmie Yarbrough MD Work Phone: [phone] [place], [place] [address]Ttzrlqdxaw91-91-9107 14:02-0400Respiratory rate18 /minKimmie Yarbrough MD Work Phone: [phone] [place], [place] [address]Qnbfhjarok97-62-3938 14:02-1078JfS3% (BldA) [Mass fraction]98 %Kimmie Yarbrough MD Work Phone: [phone] HospitalNmwxzektzx54-24-9487 17:48-0400Body lfynwy127.4 kgWenddanielle Tsavo Mediaatrium health wake forest baptist wilkes medical centerMicreosnorth central bronx hospitalTheVegibox.com [facility] 96-886627-71171229-64-3419 17:48-0400Diastolic blood ebuxtpbr31 mm[Hg] [facility] Tsavo MediaPenn Presbyterian Medical CenterTheVegibox.com [facility] [id number] 17:48-0400Heart rate76 /minWend PachecoWellSpan [facility] Hospital [employer] [facility] 13-539752-41950181-22-2771 17:48-0400Systolic blood fyryhmpg420 mm[Hg] Cinthia Tsavo Mediaatrium health [facility] forest bapt[facility] wilkes medical centerMicreosnorth central bronx hospitalTheVegibox.com [facility] 98-343178-75315384-14-2321 14:52-0400Body jfuyrn742.8 cmEricka WymseeMonroe [employer] [facility] [id number] 14:52-0400Body mass index (BMI) [Ratio]36.16 kg/m2Ericka Noise Freaksnorth central bronx hospitalTheVegibox.com [facility] Work Phone: [phone] 14:52-0400Body surface area Derived from formula2.38 m2Ericka Noise Freaksnorth central bronx hospitalTheVegibox.com [facility] 91-441994-69284152-37-6752 14:52-0400Body zxnren260.31 kgEricka WymseeMonroe [employer] [facility] Work Phone: [phone] 14:52-0400Diastolic blood nacwbwly66 mm[Hg] Ericka Noise Freaksnorth central bronx hospitalTheVegibox.com [facility] 22-779215-03079820-87-2866 14:52-0400Heart rate86 /minEricka Noise Freaksnorth central bronx hospitalTheVegibox.com [facility] 62-955744-81908371-32-4969 14:52-0400Systolic blood hsijvyoo182 mm[Hg] Ericka Noise Freaksnorth central bronx hospitalTheVegibox.com [facility] 64-903735-75955170-38-0514 15:21-0500Body wfugdc029.34 cmEricka Muniz MD Work Phone: [facility]02-04-2025 15:21-0500 Body mass index (BMI) [Ratio]34.5 kg/m2Ericka Muniz MD Work Phone: [phone] [place], [place] 4815802-04-2025 15:21-0500 Body vttelr529.49 kgEricka Muniz MD Work Phone: [phone]02-04-2025 15:21-0500 Diastolic blood letebmpg50 mm[Hg]Ericka Muniz MD Work Phone: [phone]02-04-2025 15:21-0500 Heart ermt403 /minEricka Muniz MD Work Phone: [phone]02-04-2025 15:21-0500 Respiratory rate20 /minEricka Muniz MD Work Phone: [phone] [place], [place] 4815802-04-2025 15:21-0500 SaO2% (BldA) [Mass fraction]97 %Ericka Muniz MD Work Phone: [phone]02-04-2025 15:21-0500 Systolic blood lzvhqabh448 mm[Hg]Ericka Muniz MD Work Phone: [phone]10-17-2024 17:02-0400 Body gsidzz006.85 kgWend Shaanxi [employer] Technologynorth central bronx hospitalBlued 10-17-2024 17:02-0400Diastolic blood qgpkokyk52 mm[Hg] Cinthia [employer] [id number] 17:02-0400Heart rate78 /minWend [employer] 10-17-2024 17:02-0400Systolic blood hhiuamnu967 mm[Hg] Cinthia [employer] 80-202246-67417567-06-6738 14:06-0400Body cqdnyd430.07 [place] [employer] 09-11-2024 14:06-0400Body mass index (BMI) [Ratio]34.52 kg/m2[place] [employer] 09-11-2024 14:06-0400Body surface area Derived from formula2.[address] [facility] legalPAD [facility] 09-11-2024 14:06-0400Body iamxwb824.68 kgEricka [facility] legalPAD [facility] 09-11-2024 14:06-0400Diastolic blood lrjmitvs33 mm[Hg] Ericka [facility] 09-11-2024 14:06-0400Heart rate72 /minEricka [facility] 09-11-2024 14:06-0400Systolic blood mm[Hg] Ericka [facility] 06-05-2024 15:17-0400Body ndnciq946.34 cmAPRN Mark Upton Work Phone: [facility]06-05-2024 15:17-0400 Body xkidbxspril64.6 [degF][employer] Mark Upton Work Phone: [phone]06-05-2024 15:17-0400 Body ocnnli465.3 kgAPRN Mark Upton Work Phone: [facility]06-05-2024 15:17-0400 Diastolic blood pabpcksu12 mm[Hg][employer] Mark Alexsandra Work Phone: [phone]06-05-2024 15:17-0400 Heart rate97 /minAPRN Mark Alexsandra Work Phone: [facility]06-05-2024 15:17-0400 Respiratory rate18 /minAPRN Mark Alexsandra Work Phone: [facility]06-05-2024 15:17-0400 SaO2% (BldA) [Mass fraction]95 %[employer] Mark Alexsandra Work Phone: [facility]06-05-2024 15:17-0400 Systolic blood mm[Hg]RADHA Upton Work Phone: [phone] [place], [place] 3275105-25-2024 16:32-0400 Body docrgl874.34 cmAPRDouglas Upton Work Phone: [phone]05-25-2024 16:32-0400 Body wshkouqjbha02.9 [degF]RADHA Upton Work Phone: [phone] [place], [place] 2789205-25-2024 16:32-0400 Body eowqlk991.25 kgAPRDouglas Upton Work Phone: [phone] [place], [place] 2789205-25-2024 16:32-0400 Diastolic blood dqpegrsv59 mm[Hg]RADHA Upton Work Phone: [phone] [place], [place] 2789205-25-2024 16:32-0400 Heart rate98 /minRADHA Upton Work Phone: [phone] [place], [place] 2789205-25-2024 16:32-0400 Respiratory rate17 /minAPRDouglas Upton Work Phone: [phone] [place], [place] 2789205-25-2024 16:32-0400 SaO2% (BldA) [Mass fraction]95 %RADHA Upton Work Phone: [phone] [place], [place] 2789205-25-2024 16:32-0400 Systolic blood stgnxbxo805 mm[Hg]RADHA Upton Work Phone: [phone] [place], [place] 3805905-06-2024 14:24-0400 Body .07 cmEricka [employer]LimestoneBlued 05-06-2024 14:24-0400Diastolic blood pgyjpeuw04 mm[Hg] Ericka Noise Freaksnorth central bronx hospitalBlued 05-06-2024 14:24-0400Systolic blood mm[Hg] Ericka Noise Freaksnorth central bronx hospitalBlued 05-06-2024 13:14-0400Body jiswhg626.77 kgEricka [employer] [facility] [id number] 13:14-0400Diastolic blood mm[Hg] Ericka Noise Freaksnorth central bronx hospitalTheVegibox.com [facility] 47-273299-01710658-41-0363 13:14-0400Heart rate76 /minEricka Noise Freaksnorth central bronx hospitalTheVegibox.com [facility] 93-535946-69452625-52-2416 13:14-0400Systolic blood ulylyrdl656 mm[Hg] Ericka Noise Freaksnorth central bronx hospitalTheVegibox.com [facility] Work Phone: [phone] 16:12-0400Body sbeqmd091.34 cmEricka WymseeMonroeTelefonica [facility] 75-775602-62063151-46-2799 16:12-0400Body mass index (BMI) [Ratio]33.19 kg/m2Ericka [employer] [facility] [id number] 16:12-0400Body surface area Derived from formula2.33 m2Ericka [employer] [facility] 24-281222-94345654-71-3832 16:12-0400Body .96 kgEricka WymseeMonroeTelefonica [facility] 66-752329-88714696-52-0642 16:12-0400Diastolic blood mjwolbfh72 mm[Hg] Ericka Noise Freaksnorth central bronx hospitalTheVegibox.com [facility] [id number] 16:12-0400Heart rate90 /minEricka [employer] [facility] Work Phone: [phone] 16:12-0400Systolic blood jopmwjmw306 mm[Hg] Ericka [employer] [id number] 16:23-0500Body iugelx221.34 Lisandra [employer] TechnologyLimestoneTheVegibox.com [facility] [id number] 16:23-0500Body mass index (BMI) [Ratio]33.33 kg/n3Mvhrp [employer] TechnologyLimestoneBlued 17-951208-78530700-80-5541 16:23-0500Body surface area Derived from formula2.33 r0Hdtnw Alvos Therapeuticnorth central bronx hospitalBlued 21-075191-70658625-58-5015 16:23-0500Body .41 kgEdilberto Alvos Therapeuticnorth central bronx hospitalBlued [id number] 16:23-0500Body weight0.1 {percentile}Edilberto Alvos Therapeuticnorth central bronx hospitalBlued [id number] 16:23-0500Diastolic blood mm[Hg] Edilberto Alvos Therapeuticnorth central bronx hospitalBlued [id number] 16:23-0500Heart cfhu095 /minEdilberto Jaraeder [place] 62-354934-87450183-78-6901 16:23-0500Systolic blood vyyhmaaz278 mm[Hg] Edilberto Alvos Therapeuticnorth central bronx hospitalBlued 11-17-2022 14:45-0500Body qibgps040.88 cmSelect [facility]11-17-2022 14:45-0500Body mass index (BMI) [Ratio]24.4 kg/r4VjqivihyfSelect [facility]ty [facility]11-17-2022 14:45-0500Body .64 kg [facility]11-17-2022 14:39-0500Body fbqvryhvusp42.7 [degF][facility]11-17-2022 14:39-0500Diastolic blood rsyhqrjl25 mm[Hg][facility]11-17-2022 14:39-0500Heart rate90 /[facility]11-17-2022 14:39-0500Respiratory rate20 /[facility]11-17-2022 14:39-0500Systolic blood qytrrwiz259 mm[Hg][facility]10-26-2022 14:50-0400Body jbtpyd591.88 cmSelect [facility]10-26-2022 14:50-0400Body mass index (BMI) [Ratio]24.4 kg/u6WsxwwodgnSelect [facility]ty [facility]10-26-2022 14:50-0400Body ppgqhe96.64 kgSelect [facility]10-26-2022 14:36-0400Body ddpcftputxs23.9 [degF][facility]10-26-2022 14:36-0400Diastolic blood mm[Hg]Select Medical [facility] 05-05-2022 14:36-0400Heart mfmw772 /[facility] 05-05-2022 14:36-0400Respiratory rate18 /[facility] 05-05-2022 14:36-0400Systolic blood mwhmfarb248 mm[Hg][facility]10-05-2022 14:46-0400Body dsutlw475.88 cmSelect [facility]2022 14:46-0400Body mass index (BMI) [Ratio]24.4 kg/u4TlqjawiwySelect Medical [facility]10-05-2022 14:46-0400Body fzeelb33.64 kgSelect [facility]2022 14:14-0400Body eeihqqjeutu89.6 [degF][facility]10-05-2022 14:14-0400Diastolic blood mm[Hg] [facility]10-05-2022 14:14-0400Heart ydnz749 /min [facility]10-05-2022 14:14-0400Respiratory rate18 /min [facility]10-05-2022 14:14-0400Systolic blood wfbapwoi379 mm[Hg][facility]09-22-2022 18:08-0400Body gkyiej236.88 cmSelect [facility]2022 18:08-0400Body refdiwsavpx97.5 [degF][facility]09-22-2022 18:08-0400Body jzdqaq144.6 kg [facility]09-22-2022 18:08-0400Diastolic blood epzbegil71 mm[Hg][facility]09-22-2022 18:08-0400Heart kehn973 /min [facility]09-22-2022 18:08-0400Respiratory rate20 /min [facility]09-22-2022 18:08-6340NiB4% (BldA) [Mass fraction]97 %[facility]09-22-2022 18:08-0400Systolic blood dmbdjxab855 mm[Hg][facility]08-10-2022 15:25-0400 Body .34 cmJepremier health atrium medical centery [facility] [place] [facility] [place] FallsMicreosnorth central bron[place] hospitalTheVegibox.com [facility] Work Phone: [phone] 15:25-0400Body mass index (BMI) [Ratio]33.75 kg/q9Tgddci myZamanawatauga medical centerMicreosnorth central bronx hospitalTheVegibox.com [facility] Work Phone: [phone] 15:25-0400Body surface area Derived from formula2.35 j7Iirnax Marchwatauga medical centerMicreosnorth central bronx hospitalTheVegibox.com [facility] Work Phone: [phone] 15:25-0400Body surface area Derived from formula2.34 n9Olhazg myZamanawatauga medical centerMicreosnorth central bronx hospitalTheVegibox.com [facility] Work Phone: [phone] 15:25-0400Body fumyyq037.77 kgJepremier health atrium medical centery myZamanawatauga medical centerMicreosnorth central bron[place] hospitalTheVegibox.com [facility] Work Phone: [phone] 15:25-0400Diastolic blood gmuglzwi91 mm[Hg] Franky myZamanawatauga medical centerMicreosnorth central bronx hospitalTheVegibox.com [facility] Work Phone: [phone] 15:25-0400Heart rate84 /minJepremier health atrium medical centery [facility] [place] [facility] [place] MonroeTelefon[employer] [facility] Work Phone: [phone] 15:25-0400Systolic blood galytqmx238 mm[Hg] Franky iXpertnorth central bronx hospitalTheVegibox.com [facility] Work Phone: [phone] 14:30-0400Body dygioj273.34 cmSe[place] [employer] Work Phone: [phone] 14:30-0400Body mass index (BMI) [Ratio]33.75 kg/m2[place] [employer] Work Phone: [phone] 14:30-0400Body surface area Derived from formula2.35 m2Ericka Noise Freaksnorth central bronx hospitalTheVegibox.com [facility] Work Phone: [phone] 14:30-0400Body surface area Derived from formula2.34 m2Ericka Noise Freaksnorth central bronx hospitalTheVegibox.com [facility] Work Phone: [phone] 14:30-0400Body vibpoe884.77 kgEricka Muniz [place] [employer] [facility] Work Phone: [phone] 14:30-0400Diastolic blood jfldhjbi24 mm[Hg] Ericka MusclePharmLimestoneTheVegibox.com [facility] Work Phone: [phone] 14:30-0400Heart rate88 /minEricka MusclePharmLimestoneTheVegibox.com [facility] Work Phone: [phone] 14:30-0400Systolic blood jgdxwavv531 mm[Hg] Ericka Noise Freaksnorth central bronx hospitalTheVegibox.com [facility] Work Phone: [phone] 13:42-0400Body vlwcoo308.34 cmLeroy [employer] TechnologyLimestoneTheVegibox.com [facility] Work Phone: [phone] 13:42-0400Body mass index (BMI) [Ratio]33.47 kg/l9Qxwmn [employer] TechnologyLimestoneTheVegibox.com [facility] Work Phone: [phone] 13:42-0400Body surface area Derived from formula2.34 l8Dbcji Alvos Therapeuticnorth central bronx hospitalTheVegibox.com [facility] Work Phone: [phone] 13:42-0400Body .86 kgEdilberto Alvos Therapeuticnorth central bronx hospitalTheVegibox.com [facility] Work Phone: [phone] 13:42-0400Diastolic blood njwvkvie47 mm[Hg] Edilberto [employer] [facility] Work Phone: [phone] 13:42-0400Heart rate84 /minEdilberto vChatterncTelefonica [facility] Work Phone: [phone] 13:42-0400Systolic blood wbbuxrbx811 mm[Hg] Edilberto JaraederBlanchTheVegibox.com [facility] 04-12-2022 16:47-0400Body skytcl239.34 cmDwaynepremier health atrium medical centery [facility] 04-12-2022 16:47-0400Body mass index (BMI) [Ratio]34.03 kg/f7Vpoccx [facility] 04-12-2022 16:47-0400Body surface area Derived from formula2.35 c1EpsdnnUniversity Hospitals Ahuja [facility] Black[facility] 04-12-2022 16:47-0400Body jujcfw480.68 kgUniversity [facility] 04-12-2022 16:47-0400Diastolic blood uwlhjnxp03 mm[Hg] Franky [facility] 04-12-2022 16:47-0400Heart rate88 /minJegarricky [facility] 04-12-2022 16:47-0400Systolic blood mm[Hg] Franky [facility] 03-10-2022 16:22-0500Body mxoeqh269.34 cmDwaynepremier health atrium medical centermichelle [facility] 03-10-2022 16:22-0500Body mass index (BMI) [Ratio]34.17 kg/z4MvwjcvUniversity Hospitals Ahu[facility] 03-10-2022 16:22-0500Body surface area Derived from formula2.36 b2Plfsbx [facility] 03-10-2022 16:22-0500Body mzbpul016.13 kgDwaynepremier health atrium medical centerSupplyBetter [facility] 03-10-2022 16:22-0500Diastolic blood dytufidz75 mm[Hg] Franky iXpertnorth central bronx hospitalTheVegibox.com [facility] 03-10-2022 16:22-0500Heart rate84 /minFranky Turpin [employer] [facility] 03-10-2022 16:22-0500Systolic blood mm[Hg] Franky VidalHighsmith-Rainey Specialty HospitalTheVegibox.com [facility] 08-063624-30897062-96-6633 14:40-0500Body bhehcj279.34 Lisandra [employer] [facility] 51-264086-52320157-95-7753 14:40-0500Body mass index (BMI) [Ratio]35.15 kg/j5Zjzvt [employer] 85-215788-10949935-38-1632 14:40-0500Body surface area Derived from formula2.39 o9Pxsak [employer] 47-801177-69904173-59-4299 14:40-0500Body ignzxv283.31 kgEdilberto [employer] 75-158144-63289283-21-5610 14:40-0500Diastolic blood mm[Hg] Edilberto [employer] 61-088069-14704856-65-6331 14:40-0500Heart rate84 /Damon [employer] [facility] 96-669240-03953601-09-9888 14:40-0500Systolic blood xzwhjdya455 mm[Hg] Edilberto [employer] [facility] 09-09-2021 14:33-0400Body lxcjau936.61 Lisandra [employer] 20-563614-13304249-33-3871 14:33-0400Body mass index (BMI) [Ratio]33.49 kg/j3Yitnc [employer] 87-447073-55365072-68-7786 14:33-0400Body surface area Derived from formula2.36 n9Ovkct [employer] [facility] 09-09-2021 14:33-0400Body kcvzsu535.45 kgEdilberto [employer] [facility] 51-927856-82282821-27-5567 14:33-0400Diastolic blood efjomxnt22 mm[Hg] Edilberto Alvos Therapeuticnorth central bronx hospitalTheVegibox.com [facility] 09-09-2021 14:33-0400Heart rate88 /minEdilberto ZamoraGridstore [facility] 09-09-2021 14:33-0400Systolic blood vrntlryv657 mm[Hg] Edilberto [employer] [facility] 88-550260-61496502-56-0108 13:35-0400Body .61 cmSeattle WymseeMonroeTelefonica [facility] 06-15-2021 13:35-0400Body mass index (BMI) [Ratio]33.01 kg/m2[place] [employer] [facility] 16-398122-01260653-87-7924 13:35-0400Body surface area Derived from formula2.34 m2[place] [employer] [facility] 21-615945-50332066-96-6899 13:35-0400Body cjdavg781.86 kgSeattle Skedo [facility] 04-788620-17320577-02-3759 13:35-0400Diastolic blood gglmbbtu89 mm[Hg] Erikca [employer] [facility] 51-385615-25630673-55-6431 13:35-0400Heart rate83 /minEricka [employer] [facility] 51-877865-34192505-32-1100 13:35-0400Systolic blood ovvigtyq223 mm[Hg] Ericka [employer] [facility] 03-02-2021 15:15-0500BMI (Body Mass Index)33.56 kg/m2 Edilberto [employer] [facility] 03-02-2021 15:15-0500Body .68 kgEdilberto [employer] 87-219719-33639477-10-3763 15:15-0500BP Rgptpdmsg60 mm[Hg]Edilberto [employer] 09-244158-11726585-80-7782 15:15-0500BP Xgykdxhy528 mm[Hg]Edilberto [employer] Work Phone: [phone] 15:15-0500BSA (Body Surface Area)2.36 m2 Edilberto [employer] Work Phone: [phone] 15:15-3287Gxpzrx670.61 uiu Work Phone: [phone] 15:15-0500Pulse (Heart Rate)104 /minSage Memorial Hospitalgavi [employer] Work Phone: [phone] 17:01-0400BMI (Body Mass Index)33.46 kg/m2 Edilberto [employer] Work Phone: [phone] 17:01-0400Body agtlyw306.37 [place] [employer] Work Phone: [phone] 17:01-0400BP Icnneiqdz27 mm[Hg]EdilbertoTag'By Work Phone: [phone] 17:01-0400BP Quccfrmj935 mm[Hg]Edilberto [employer] Work Phone: [phone] 17:01-0400BSA (Body Surface Area)2.36 m2 EdilbertoTag'By Work Phone: [phone] 17:01-0482Dqkifz652.61 uiu Work Phone: [phone] 17:01-0400Pulse (Heart Rate)78 /minMDSave Work Phone: [phone] 17:34-0400BMI (Body Mass Index)33.83 kg/m2 Ericka [employer] Work Phone: [phone] 17:34-0400Body Sgjmlcehpae15.8 [degF]Ericka Noise Freaksnorth central bronx hospitalBlued Work Phone: [phone] 17:34-0400Body .59 kgEricka [employer] Work Phone: [phone] 17:34-0400BP Felwynxuf72 mm[Hg]Ericka [employer] Work Phone: [phone] 17:34-0400BP Ammcmzcs088 mm[Hg]Ericka WymseeMonroeTolero Pharmaceuticals Work Phone: [phone] 17:34-0400BSA (Body Surface Area)2.37 m2Ericka [employer] Work Phone: [phone] 17:34-3562Ecdays294.61 cmEricka [employer] Work Phone: [phone] 17:34-0400Pulse (Heart Rate)88 /minEricka [employer] 01-69 14:30-0400Body Enhipswuuzf51.6 [degF][facility], SO80-39-7536 14:30-0400BP Zrkftqnuc41 mm[Hg][facility], JO53-61-6132 14:30-0400BP Qgszpghj573 mm[Hg][facility], KH30-32-7630 14:30-0400Pulse (Heart Rate)80 /minSBrown [facility], MO66-12-0348 14:30-0400Pulse Gwmitkmm70 %[facility], WZ42-62-0375 14:30-0400Respiratory Rate18 /minSBrown [facility], MQ05-85-5791 08:19-0400BMI (Body Mass Index)33.63 kg/c6NanisvGrande Ronde Hospital, XO36-11-3175 08:19-0400Body avnyte593.49 kgGr[facility]de [facility], MY21-81-8733 08:19-8782Zqlqzw996.9 [facility], OC46-11-0149 17:01-0400BMI (Body Mass Index)34.24 kg/m2Ericka [employer] Work Phone: [phone] 17:01-0400Body Tkctpfgmxot23.5 [degF]Ericka Noise Freaksnorth central bronx hospitalBlued Work Phone: [phone] 17:01-0400Body rmyyuo197.95 kgEricka [employer] Work Phone: [phone] 17:01-0400BP Ufifnmihq96 mm[Hg]Ericka WymseeMonroeTolero Pharmaceuticals Work Phone: [phone] 17:01-0400BP Vwvcsgfm589 mm[Hg]Ericka WymseeMonroe [employer] [facility] Work Phone: [phone] 17:01-0400BSA (Body Surface Area)2.39 m2Ericka [employer] [facility] Work Phone: [phone] 17:01-9401Bxnmkq668.61 cmEricka [employer] Work Phone: [phone] 17:01-0400Pulse (Heart Rate)100 /minEricka Skedo [facility] Work Phone: [phone] 15:09-0500BMI (Body Mass Index)33.83 kg/m2 Edilberto [employer] Work Phone: [phone] 15:09-0500Body joodqa641.59 kgGuccigavi [employer] Work Phone: [phone] 15:09-0500BP Elvnjvykw53 mm[Hg]Edilberto [employer] Work Phone: [phone] 15:09-0500BP Iqcwxyun934 mm[Hg]Edilberto [employer] 31-708383-44792316-63-4206 15:09-0500BSA (Body Surface Area)2.37 m2 Edilberto [employer] 17-173936-81840962-29-8973 15:09-9295Jetydt980.61 cmLeroy Sera [employer] 02-019499-69027371-05-1256 15:09-0500Pulse (Heart Rate)80 /minEdilberto [employer] 65-073521-32628602-26-6774 18:11-0500BMI (Body Mass Index)33.51 kg/m2 Ericka [employer] 57-622915-58227676-62-5602 18:11-0500Body lyewqd973.13 kgEricka [employer] 79-355116-19505843-38-5603 18:11-0500BP Krrlrefut66 mm[Hg]Ericka [employer] 03-296330-29495495-46-8963 18:11-0500BP Pchoiewx190 mm[Hg]Ericka [employer] 19-051641-61649588-96-1552 18:11-0500BSA (Body Surface Area)2.37 m2Ericka [employer] 22-506818-00470954-06-4277 18:113955Kwccnh923.12 cmEricka [employer] 15-307218-09370930-76-1067 18:11-0500Pulse (Heart Rate)80 /minEricka [employer] 10-08-2019 17:27-0400BMI (Body Mass Index)33.96 kg/m2 Edilberto [employer] 10-08-2019 17:27-0400Body oogwqc121.95 kgEdilberto [employer] 11-785250-61624170-34-8230 17:0BP Ikmnxqqcc46 mm[Hg]Edilberto [employer] 59-971562-27312707-37-7852 17:0BP Assjvvdy763 mm[Hg]Edilberto [employer] 74-401704-17735327-58-8606 17:BSA (Body Surface Area)2.39 m2 Edilberto [employer] 45-473817-01214375-52-5868 17:4218Vydqge448.37 cmLjimenezy [employer] 10-08-2019 17:Pulse (Heart Rate)102 /minEdilberto [employer] 86-417920-36769510-84-2889 13:BMI (Body Mass Index)34.3 kg/m2 Ericka [employer] Work Phone: [phone] 13:Body florwi770.08 kgEricka [employer] 90-535918-63562921-65-6546 13:0400BP Goojmvpqd88 mm[Hg]Ericka [employer] 72-036788-68480638-21-5661 13:BP Kxhgrrtc669 mm[Hg]Ericka [employer] 82-653954-65511870-27-2587 13:BSA (Body Surface Area)2.4 m2Ericka [employer] 74-955810-65377909-76-7531 13:9865Cohvjr223.37 cmEricka [employer] 41-035529-84653945-78-8988 13:040Pulse (Heart Rate)88 /minEricka [employer] 92-565951-20380617-47-4910 13:490BMI (Body Mass Index)34.5 kg/m2 Edilberto [employer] 12-743591-07046018-33-1337 13:49-0400Body bzyajb357.76 kgEricka Muniz [employer] 23-797631-14515338-97-7466 13:49-0400BP Ypgaqzjdh63 mm[Hg]Edilberto [employer] 18-936870-71181813-50-4175 13:49-0400BP Fleweciv896 mm[Hg]Edilberto [employer] Work Phone: [phone] 13:49-0400BSA (Body Surface Area)2.41 m2 Edilberto [employer] 71-586744-29489351-12-4979 13:49-2663Slgpwa665.37 uiu 16-754210-99657211-60-0324 13:49-0400Pulse (Heart Rate)90 /minEdilberto [employer] 12-171550-23513569-37-5382 13:49-8330Mvdfrz065.76 [place] [employer] 47-802937-28267811-38-7997 13:45-0400BMI (Body Mass Index)34.38 kg/m2 Edilberto [employer] 49-429253-39263859-49-8016 13:45-0400Body .4 kgEricka [employer] 47-119433-74632100-75-7127 13:45-0400BP Htsremlvw42 mm[Hg]Edilberto [employer] 54-204773-43788147-39-2942 13:45-0400BP Qzloykau642 mm[Hg]Edilberto [employer] 75-695466-17553763-62-3988 13:45-0400BSA (Body Surface Area)2.39 m2 EdilbertoTag'By 67-661535-93438800-72-2852 13:45-7424Hpmzoh377.61 uiu 98-146657-56502420-05-6094 13:45-0400Pulse (Heart Rate)90 /minEdilberto [employer] 34-777235-05403928-58-8607 13:45-9470Ltpxbb439.4 [place] [employer] 20-452350-85224167-44-0324 13:14-0500BMI (Body Mass Index)33.74 kg/m2 Edilberto [employer] 62-781146-83438103-29-1554 13:14-0500Body qfystt389.27 Gerardo [employer] 91-134858-39271639-76-0644 13:14-0500BP Neqjwfikp41 mm[Hg]Edilberto [employer] 58-691624-79751795-49-2857 13:14-0500BP Kmxjlion677 mm[Hg]Edilberto [employer] 34-766234-09370051-76-4452 13:14-0500BSA (Body Surface Area)2.37 m2 Edilberto [employer] 61-371500-11923083-49-8555 13:14-4800Aubqld623.61 cmLeroy [employer] 82-953828-31512474-62-4375 13:14-0500Pulse (Heart Rate)84 /minEdilberto [employer] 42-260134-38807495-65-8341 13:14-6757Fgpffe875.27 [place] [employer] 12-10-2018 13:18-0500Body gvtniu827.04 Gerardo [employer] 12-10-2018 13:18-0500BP Xgmkignob16 mm[Hg]MDSave 12-10-2018 13:18-0500BP Frknrwiy607 mm[Hg]MDSave 93-092553-25128089-03-5819 13:180500Pulse (Heart Rate)70 /minEdilberto [employer] Work Phone: [phone] 13:18-4144Fdzaub913.04 [place] [employer] Work Phone: [phone] 14:25-0400BMI (Body Mass Index)32.28 kg/m2 Edilberto [employer] Work Phone: [phone] 14:25-0400Body oorwgt905.96 Gerardo [employer] Work Phone: [phone] 14:25-0400BP Izxxdjfhv43 mm[Hg]Edilberto [employer] Work Phone: [phone] 14:25-0400BP Gwnwatts393 mm[Hg]Edilberto [employer] Work Phone: [phone] 14:25-0400BSA (Body Surface Area)2.34 m2 Edilberto [employer] Work Phone: [phone] 14:254961Rvsiln860.88 cmLeroy [employer] Work Phone: [phone] 14:250400Pulse (Heart Rate)78 /minEdilberto [employer] Work Phone: [phone] 14:25-4494Gfbxzl743.96 [place] [employer] Work Phone: [phone] 13:34-0400BMI (Body Mass Index)32.55 kg/m2 Edilberto [employer] Work Phone: [phone] 13:34-0400Body nlxryg710.86 Gerardo [employer] 96-295989-31720675-41-4222 13:34-0400BP Tljvvuijb863 mm[Hg]Edilberto [employer] Work Phone: [phone] 13:34-0400BP Ygldepjx813 mm[Hg]Edilberto [employer] Work Phone: [phone] 13:34-0400BSA (Body Surface Area)2.35 m2 Edilberto [employer] Work Phone: [phone] 13:34-1154Yxxkxz341.88 Lisandra [employer] Work Phone: [phone] 13:34-0400Pulse (Heart Rate)104 /minEdilberto [employer] Work Phone: [phone] 13:34-7674Rldlgd620.86 [place] [employer] Work Phone: [phone] 13:50-0400BMI (Body Mass Index)33.36 kg/m2 Edilberto [employer] Work Phone: [phone] 13:50-0400Body omxytj699.59 kgEricka Muniz [employer] Work Phone: [phone] 13:50-0400BP Qparlskaz96 mm[Hg]Edilberto [employer] Work Phone: [phone] 13:50-0400BP Jbrcgcnx027 mm[Hg]Edilberto [employer] Work Phone: [phone] 13:50-0400BSA (Body Surface Area)2.38 m2 Edilberto [employer] Work Phone: [phone] 13:50-1181Yrhkma389.88 Lisandra [employer] Work Phone: [phone] 13:50-0400Pulse (Heart Rate)76 /minMDSave Work Phone: [phone] 13:50-7113Nydsrg539.59 [place] [employer] Work Phone: [phone] 13:48-0500BMI (Body Mass Index)33.09 kg/m2 Edilberto [employer] Work Phone: [phone] 13:48-0500Body .68 Gerardo Muniz [employer] Work Phone: [phone] 13:48-0500BP Rzxxtundb22 mm[Hg]Edilberto [employer] Work Phone: [phone] 13:48-0500BP Bvrtidlr894 mm[Hg]Edilberto [employer] Work Phone: [phone] 13:48-0500BSA (Body Surface Area)2.37 m2 EdilbertoTag'By Work Phone: [phone] 13:48-6836Nzkvwr812.88 cmLeroy [employer] Work Phone: [phone] 13:48-0500Pulse (Heart Rate)80 /minEdilberto [employer] Work Phone: [phone] 13:48-1112Ffafqo191.68 [place] [employer] Work Phone: [phone] 13:30-0500BMI (Body Mass Index)33.63 kg/m2 Edilberto [employer] Work Phone: [phone] 13:30-0500Body jyobvf540.49 Gerardo [employer] Work Phone: [phone] 13:30-0500BP Pvkxpabzd78 mm[Hg]EdilbertoTag[employer]By Work Phone: [phone] 13:30-0500BP Avqoylfv057 mm[Hg]EdilbertoTag'By Work Phone: [phone] 13:30-0500BSA (Body Surface Area)2.39 m2 Edilberto [employer] 18-095595-75650927-39-8812 13:30-8850Fwprcx569.88 Lisandra [employer] Work Phone: [phone] 13:30-0500Pulse (Heart Rate)84 /minEdilberto [employer] 95-588827-11957543-26-9856 13:30-5122Lhlkmd417.49 [place] [employer] 12-18-2017 17:18-0500BMI (Body Mass Index)33.63 kg/m2 Edilberto [employer] 07-964162-59013533-61-4158 17:18-0500Body eidurn542.49 kgEricka Del[employer]ux 72-774278-19653880-93-3948 17:18-0500BP Prtzwjvyx12 mm[Hg]Edilberto [employer] 12-18-2017 17:18-0500BP Ksckoewj962 mm[Hg][facility] [employer] 55-688206-01191609-50-7803 17:18-0500BSA (Body Surface Area)2.39 m2 [facility] 12-18-2017 17:183974Hkbagz616.88 Lisandra [employer] 12-18-2017 17:18-0500Pulse (Heart Rate)80 /minEdilberto [employer] 12-18-2017 17:18-4645Ggaufj757.49 [facility] [employer] 92-902073-44579880-24-0503 13:30-0400Body anmfsv194.6 kgEricka Deluux 94-499299-04414876-71-8681 13:30-0400BP Wrffasnhg22 mm[Hg][facility] [employer] Work Phone: [phone] 13:30-0BP Bmcllpqu192 mm[Hg][facility] [employer] Work Phone: [phone] 13:30-0Pulse (Heart Rate)70 /minEdilberto [employer] Work Phone: [phone] 13:301870Zxucda376.6 Lincoln Zamora [employer] Work Phone: [phone] 12:25BMI (Body Mass Index)32.01 kg/m2 [facility] [employer] Work Phone: [phone] 12:25Body uahqth747.05 Gerardo Muniz [employer] Work Phone: [phone] 12:250BP Sjanlxnzh05 mm[Hg][facility] [employer] Work Phone: [phone] 12:25BP Etbcxhth493 mm[Hg][facility] [employer] Work Phone: [phone] 12:BSA (Body Surface Area)2.33 m2 [facility] [employer] Work Phone: [phone] 12:2508Akbwyf145.88 cmLeroy Zamora [employer] Work Phone: [phone] 12:25Pulse (Heart Rate)84 /minEdilberto [employer] Work Phone: [phone] 12:2429Nzzarc785.05 [place] [employer] Work Phone: [phone] 13:42-0400BMI (Body Mass Index)32.01 kg/m2 [employer] Work Phone: [phone] 13:42-0400Body qjelnn459.05 Gerardo Muniz [employer] Work Phone: [phone] 13:42-0400BP Zkiefdpkh32 mm[Hg][facility] [employer] Work Phone: [phone] 13:42-0400BP Obuwzaap354 mm[Hg][facility] [employer] Work Phone: [phone] 13:420400BSA (Body Surface Area)2.33 m2 [facility] [employer] Work Phone: [phone] 13:424686Mkqjqv316.88 NeilRochester Flooring Resourcesmichelle [employer] Work Phone: [phone] 13:42-0400Pulse (Heart Rate)80 /minEdilberto [employer] Work Phone: [phone] 13:42-0079Cowgdc945.05 [place] [employer] Work Phone: [phone] 13:210400BMI (Body Mass Index)32.35 kg/m2 [facility] [employer] Work Phone: [phone] 13:21-0400Body hhojke894.18 Gerardo Muniz [employer] Work Phone: [phone] 13:21-0400BP Izruteenh07 mm[Hg][facility] [employer] Work Phone: [phone] 13:21-0400BP Rpvkecqz949 mm[Hg][employer] Work Phone: [phone] 13:BSA (Body Surface Area)2.34 m2 [employer] Work Phone: [phone] 13:7141Ncpjlk285.88 [employer]Suppre[employer]ol Work Phone: [phone] 13:21-0400Pulse (Heart Rate)84 /minEdilberto [employer] Work Phone: [phone] 13:21-7611Cniwhg421.18 [place] [employer] Work Phone: [phone] 11:37-0400BMI (Body Mass Index)32.75 kg/m2 [facility] [employer] Work Phone: [phone] 11:37-0400Body .54 Gerardo Deluux 72-490627-61415025-78-2694 11:37-0400BP Niooochgd40 mm[Hg][facility] [employer] 49-740161-13301801-09-4406 11:37-0400BP Jaibseph097 mm[Hg][facility] [employer] Work Phone: [phone] 11:37-0400BSA (Body Surface Area)2.36 m2 [facility] [employer] 25-983122-25762649-05-5492 11:37-8545Mzfkyu027.88 cmLeroy [employer] Work Phone: [phone] 11:37-0400Pulse (Heart Rate)100 /minEdilberto [employer] Work Phone: [phone] 11:37-0300Ekdvuv636.54 [place] [employer] 73-591209-49803942-33-3614 13:51-0500BMI (Body Mass Index)32.96 kg/m2 [facility] [employer] Work Phone: [phone] 13:51-0500Body orzhil181.22 Gerardo Deluux 90-524012-81490349-44-4312 13:51-0500BP Srphzfqrd10 mm[Hg][facility] [employer] 14-86 13:51-0500BP Vwglykim952 mm[Hg][employer] Work Phone: [phone] 13:51-0500BSA (Body Surface Area)2.37 m2 [employer] Work Phone: [phone] 13:51-8944Fmdrmo019.88 Lisandra [employer] Work Phone: [phone] 13:51-0500Pulse (Heart Rate)108 /minMDSave Work Phone: [phone] 13:51-9620Xbifyb672.22 Lincoln [employer] Work Phone: [phone] 11:23-0400BMI (Body Mass Index)32.64 kg/m2 [employer] Work Phone: [phone] 11:23-0400Body kjfeto386.14 Gerardo Muniz [employer] Work Phone: [phone] 11:23-0400BP Nuzwtlyhy06 mm[Hg]MDSave Work Phone: [phone] 11:23-0400BP Kgbahaoy625 mm[Hg]MDSave Work Phone: [phone] 11:23-0400BSA (Body Surface Area)2.31 m2 [employer] Work Phone: [phone] 11:23-2589Csmbhv060.34 Lisandra [employer] Work Phone: [phone] 11:23-0400Pulse (Heart Rate)80 /minMDSave Work Phone: [phone] 11:23-8425Gzmjld998.14 Lincoln [employer] 90-06 13:44-0400BMI (Body Mass Index)32.85 kg/m2 Edilberto [employer] Work Phone: [phone] 13:44-0400Body tpqtla361.82 kgEricka Muniz [employer] Work Phone: [phone] 13:44-0400BP Tmvcvgwmu89 mm[Hg]Edilberto [employer] Work Phone: [phone] 13:44-0400BP Mbjjuyxv808 mm[Hg]Edilberto [employer] Work Phone: [phone] 13:440400BSA (Body Surface Area)2.31 m2 MDSave Work Phone: [phone] 13:44-7872Lgguig393.34 cmLeroy [employer] Work Phone: [phone] 13:44-0400Pulse (Heart Rate)96 /minEdilberto [employer] Work Phone: [phone] 13:44-2706Xzicih401.82 Lincoln [employer] Work Phone: [phone] 14:54-0400BMI (Body Mass Index)32.71 kg/m2 Edilberto [employer] Work Phone: [phone] 14:54-0400Body rzdxep292.37 kgEricka Deluux Work Phone: [phone] 14:54-0400BP Emcgskvfp42 mm[Hg][employer] Work Phone: [phone] 14:54-0400BP Ojifhycb586 mm[Hg][employer] 94-562259-20714306-14-5050 14:54-0400BSA (Body Surface Area)2.31 m2 MDSave 69-011834-64125249-93-3198 14:54-1134Fzrnkd840.34 Lisandra [employer] Work Phone: [phone] 14:54-0400Pulse (Heart Rate)88 /minEdilberto [employer] 78-758215-19226730-36-5790 14:54-9559Nsmres123.37 kgEdilberto [employer] Work Phone: [phone] 13:34-0400BMI (Body Mass Index)33.89 kg/m2 [employer] 03-368185-33644220-47-9143 13:34-0400Body porjmu118.22 kgEricka Deluux Work Phone: [phone] 13:34-0400BP Wfiyixzzd29 mm[Hg]Edilberto [employer] Work Phone: [phone] 13:34-0400BP Asvldtgz091 mm[Hg]MDSave 71-786480-75078702-07-0767 13:34-0400BSA (Body Surface Area)2.35 m2 MDSave 29-740735-90570856-12-8434 13:34-6052Tfdygv759.34 NeilRochester Flooring Resourcesmichelle [employer] Work Phone: [phone] 13:34-0400Pulse (Heart Rate)100 /minEdilberto [employer] 01-360139-02847574-00-2175 13:34-8268Qntjxu330.22 Lincoln [employer] 33-983396-25643609-55-5238 13:00-0400BMI (Body Mass Index)33.47 kg/m2 MDSave 11-141545-42496765-41-7431 13:00-0400Body sisjte302.86 kgEricka Deluux Work Phone: [phone] 13:00-0400BP Kcplvvqpi60 mm[Hg]Edilberto [employer] Work Phone: [phone] 13:00-0400BP Qzkjfmbp205 mm[Hg]Edilberto [employer] Work Phone: [phone] 13:BSA (Body Surface Area)2.34 m2 Edilberto [employer] Work Phone: [phone] 13:00-8769Uqgvbn239.34 Lisandra [employer] Work Phone: [phone] 13:000400Pulse (Heart Rate)100 /minCedar Point Communicationsgavi [employer] Work Phone: [phone] 13:000429Torins728.86 Lincoln [employer] Work Phone: [phone] 12:BMI (Body Mass Index)34.31 kg/m2 Edilberto [employer] Work Phone: [phone] 12:290400Body tvqguf792.59 Gerardo Deluux Work Phone: [phone] 12:29-0400BP Xklhyqcaq75 mm[Hg][employer] Work Phone: [phone] 12:29-0400BP Uxjolgkm362 mm[Hg]Edilberto [employer] Work Phone: [phone] 12:29BSA (Body Surface Area)2.36 m2 [employer] Work Phone: [phone] 12:295260Hmkzjo483.34 Lisandra [employer] Work Phone: [phone] 12:290400Pulse (Heart Rate)100 /minEdilberto [employer] 53-199786-60994853-28-9542 12:29-4305Rzjdlj057.59 Lincoln [employer] 81-523318-08626331-35-8565 13:52-0400BMI (Body Mass Index)34.07 kg/m2 [employer] 37-429252-52578638-93-8371 13:52-0400Body ojeodf896.82 Gerardo Deluux 23-150285-09294436-89-3195 13:52-0400BP Gsvlrercx46 mm[Hg]MDSave 30-602083-04181290-53-2092 13:52-0400BP Pajbnpbh615 mm[Hg]MDSave 62-492831-24371546-58-7876 13:52-0400BSA (Body Surface Area)2.36 m2 [employer] 41-979001-34708059-42-1908 13:52-2522Vlkwxr225.34 cmLeroy [employer] 00-970814-96430922-60-1923 13:52-0400Pulse (Heart Rate)100 /minEdilberto [employer] 94-186434-15551311-53-5230 13:52-1363Erejfh296.82 Lincoln [employer] 31-321178-97623164-25-3915 14:53-0400BMI (Body Mass Index)34.31 kg/m2 [employer] 52-100023-72183049-09-9851 14:53-0400Body .59 Gerardo Deluux 56-938200-41493825-46-8836 14:53-0400BP Mamsqgkkg50 mm[Hg]MDSave 52-228513-84320965-48-8577 14:53-0400BP Hrsfzpvq850 mm[Hg]Edilberto [employer] 06-910376-45464654-90-1615 14:53-0BSA (Body Surface Area)2.36 m2 Edilberto [employer] Work Phone: [phone] 14:53-2094Bpwacm563.34 Lisandra JaraParallel Engines 01-985226-40405009-07-2752 14:53-0400Pulse (Heart Rate)120 /minEdilberto [employer] 19-530667-99469472-60-3343 14:53-1625Fayjwx391.59 Lincoln [employer] 64-269681-79898817-79-4861 13:24-0400BMI (Body Mass Index)34.38 kg/m2 [employer] 91-744466-01041797-77-6297 13:24-040Body odqlut952.81 Gerardo Muniz [employer] 45-645536-64580204-72-4777 13:24-0400BP Phibtboxx02 mm[Hg]Edilberto [employer] 84-515042-37671289-62-8991 13:24-0400BP Edyudifg735 mm[Hg]Edilberto [employer] 71-493210-95606435-10-0567 13:240BSA (Body Surface Area)2.37 m2 [employer] 07-549101-06002952-90-6265 13:24-9603Lczkyh994.34 Lisandra [employer] 49-404767-49254590-26-9725 13:24-0400Pulse (Heart Rate)108 /minCedar Point Communicationsgavi [employer] 48-369855-96354126-48-5655 13:24-7979Sjllet591.81 Lincoln [employer] 11-936786-37341028-16-3212 11:47-0400BMI (Body Mass Index)34.38 kg/m2 Edilberto [employer] Work Phone: [phone] 11:47-0400Body cyndzs528.81 kgEricka Deluux Work Phone: [phone] 11:47-0400BP Skmylsoyq65 mm[Hg]Edilberto [employer] Work Phone: [phone] 11:47-0400BP Qqhzwyuo611 mm[Hg]Edilberto [employer] Work Phone: [phone] 11:47-0400BSA (Body Surface Area)2.37 m2 MDS[employer] Work Phone: [phone] 11:47-8065Rbfbqi349.34 cmLeroy [employer] Work Phone: [phone] 11:47-0400Pulse (Heart Rate)116 /minEdilberto [employer] Work Phone: [phone] 11:47-2136Gxbjlu987.81 Lincoln [employer] Work Phone: [phone] 12:48-0400BMI (Body Mass Index)35.15 kg/m2 [employer] Work Phone: [phone] 12:48-0400Body rxhjoq630.31 kgEricka Deluux Work Phone: [phone] 12:48-0400BP Vweqddgtj42 mm[Hg]Edilberto [employer] Work Phone: [phone] 12:48-0400BP Kcvrsbkx229 mm[Hg][employer] Work Phone: [phone] 12:48-0400BSA (Body Surface Area)2.39 m2 MDSave Work Phone: [phone] 12:48-1197Apxxex403.34 Lisandra JaraParallel Engines Work Phone: [phone] 12:48-0400Pulse (Heart Rate)76 /minEdilberto [employer] Work Phone: [phone] 12:48-7516Zgluhw924.31 kgEdilberto [employer] Work Phone: [phone] 15:06-0500Pulse Crlljybh27 %Edilberto [employer] Work Phone: [phone] 15:06-1888GcQ4% (BldA) [Mass fraction]97 % Ericka MunizEssence Group Holdings Work Phone: [phone] 14:14-0500BMI (Body Mass Index)36.26 kg/m2 Edilberto [employer] Work Phone: [phone] 14:14-0500Body Bghreyihoou37.1 [degF]Edilberto [employer] Work Phone: [phone] 14:14-0500Body yzpdmz045.94 kgEricka Muniz [employer] Work Phone: [phone] 14:14-0500BP Xozqbqqck35 mm[Hg]Edilberto [employer] Work Phone: [phone] 14:14-0500BP Jhvtufew524 mm[Hg]Edilberto [employer] Work Phone: [phone] 14:14-0500BSA (Body Surface Area)2.43 m2 Edilberto [employer] Work Phone: [phone] 14:14-9267Yrdsos726.34 Lisandra [employer] Work Phone: [phone] 14:14-0500Pulse (Heart Rate)112 /minEdilberto [employer] Work Phone: [phone] 14:14-0500Respiratory Rate20 /minEdilberto [employer] Work Phone: [phone] 14:14-7037Gpdrho722.94 Lincoln [employer] 78-495132-91249204-03-5078 13:36-0500BMI (Body Mass Index)36.26 kg/m2 Edilberto [employer] Work Phone: [phone] 13:36-0500Body rdzmij705.94 kgEricka Muniz [employer] 03-985645-09057205-83-0608 13:36-0500BP Vmlqgykyo76 mm[Hg]Edilberto [employer] 73-306074-74558125-26-3978 13:36-0500BP Mxqcjvar272 mm[Hg]Edilberto [employer] 29-518655-44612773-50-8385 13:36-0500BSA (Body Surface Area)2.43 m2 Edilberto [employer] Work Phone: [phone] 13:36-1115Cvkxkn725.34 cmLeroy [employer] 31-025749-03350374-99-6125 13:36-0500Pulse (Heart Rate)76 /minEdilberto [employer] 02-075147-41980607-02-9239 13:36-4630Fhejel155.94 Lincoln [employer] 30-514054-08029782-94-2528 13:00-0500BMI (Body Mass Index)36.4 kg/m2 Edilberto [employer] 74-825991-42219907-03-6697 13:00-0500Body Jikbidxicmt47.6 [degF]Edilberto [employer] 74-966588-71930706-51-5744 13:00-0500Body cyprqr813.39 kgEricka Deluux Work Phone: [phone] 13:00-0500BP Mzswfytpo33 mm[Hg]Edilberto [employer] Work Phone: [phone] 13:00-0500BP Julgeyrt457 mm[Hg]Edilberto [employer] Work Phone: [phone] 13:00-0500BSA (Body Surface Area)2.44 m2 Edilberto [employer] Work Phone: [phone] 13:00-6925Cjcqoh399.34 Lisandra [employer] Work Phone: [phone] 13:00-0500Pulse (Heart Rate)120 /minEdilberto [employer] Work Phone: [phone] 13:00-6755Dcyyym674.39 kgEdilberto [employer] Work Phone: [phone] 13:38-0500BMI (Body Mass Index)35.98 kg/m2 Edilberto [employer] Work Phone: [phone] 13:38-0500Body Clrddnxgkhg28.8 [degF]Edilberto [employer] Work Phone: [phone] 13:38-0500Body dpiqzn162.03 kgEricka Muniz [employer] 23-748434-40488327-58-1034 13:38-0500BP Jsqauidpv03 mm[Hg]Edilberto [employer] 40-863120-37724592-84-7444 13:38-0500BP Gpnyupqh390 mm[Hg][employer]il[employer]to[employer]By 78-494303-80992090-71-2387 13:38-0500BSA (Body Surface Area)2.42 m2 EdilbertoTag[employer]By 82-535570-59822984-24-8491 13:38-4644Mrugmj021.34 NeilSuppreMol 11-24-2015 13:380503Pulse (Heart Rate)84 /minEdilberto [employer] Fil[employer] TechnologyRogerCorporamayaw Hoodinn 11-24-2015 13:388342Vjyfos842.03 kgEdilberto AbleSky Encounters Encounter DateEncounter TypeCare ProviderFacilityStart: 04-08-2025 End: 31-54-7587Wgtcwm outpatient new 45 minutesKimmie Yarbrough MD Work Phone: noms Senait EndocrinologyComment on above: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); Low libido; Encounter for dietary consultation; Class 1 obesity due to excess calories without serious comorbidity with body mass index (BMI) of 34.0 to 34.9 in adultStart: 04-08-2025 End: 86-39-6202Urjvyfbebeto Yarbrough MD Work Phone: [facility] EndocrinologyStart: 04-08-2025 End: 32-54-7990Gfspgdbebeto Yarbrough MD Work Phone: [facility] EndocrinologyStart: 04-08-2025 End: 34-45-6100uymdnlxaohEBPKO F SABBAGHNot AvailableStart: 92-18-1870Ochrfq outpatient visit 25 minutesWemadan aMgana Other bvma OfficeStart: 05-18-3584Njoki S Schworm Other BVMA OfficeStart: 11-07-4952Ehxliz outpatient visit 25 minutesEricka Muniz Other bvma OfficeStart: 52-65-7620Vdlo R Fox Other BVMA OfficeStart: 12-20-2024 End: 41-53-9728uilugnuwjgZosszld Ryan Denike DOFacility:[facility] Start: 08-14-2024 End: 93-98-3515xfqzhymkxeKzxj R Fox MD Work Phone: [facility] Work Phone: Start: 08-14-2024 End: 23-60-5067Ovzziob encounter procedureEricka Muniz MD Work Phone: [facility] Work Phone: Start: 98-26-9875Ffg-patient / Non-visitEricka Muniz MD Work Phone: [facility]Nov[facility] Work Phone: Start: 07-19-2024 End: 06-82-3899Izfitla encounter procedureEricka Muniz MD Work Phone: [facility]-Respiratory Therapy Work Phone: Start: 07-19-2024 End: 30-66-1533ivremlczitJzzw R Fox MD Work Phone: [facility] Work Phone: Start: 06-21-2024 End: 76-74-7015mzwsqalniaAnmhd [facility]ah[facility] MILLER FIRST-CNPFacility:[facility] HospitalyStart: 06-12-2024 End: 89-53-4022eqaadjxmiyGhkoj Beth Eziooegigihospital of the [facility] MILLER FIRST-CNPFacility:[facility] HospitalyStart: 39-23-3804Rtrjui outpatient visit 25 minutesWemadan Magana Other [facility]MA OfficeStart: 05-12-0421Hesh R Fox Other [facility] OfficeStart: 40-24-0670Xdbluz outpatient visit 25 minutesEricka Muniz Other bvMA OfficeStart: 01-11-2024 End: 62-48-9264skxlhjutbyKcyzj Beth Kloepfer MILLER FIRST-CNPFacility:[facility] Hospitaltart: 12-14-2023 End: 65-24-8743Hoqjetzfm department patient visitRADHA Upton Work Phone: [facility]-Emergency Room Work Phone: Start: 12-03-2023 End: 36-93-8736Jedbrhsau department patient visitAPRDouglas Upton Work Phone: [facility]-Emergency Room Work Phone: Start: 11-14-2023 End: 42-48-3086Hagsav outpatient visit 25 minutesEricka Muniz Other bvma OfficeStart: 05-22-8125Uygn Pablo Muniz Other bvma OfficeStart: 36-92-9209Hpgg examination performed Ericka [employer] Start: 48-31-7242Dadarefav encounterPaarelis Jose Gelaciomary DO Work Phone: noms ENT SANDUSKYStart: 06-16-2023 End: 81-83-6285Bgf-admission assessmentPETER D [facility] Start: 60-89-9998Akwgod outpatient visit 15 minutesEricka Muniz Other bvma OfficeStart: 32-48-5406LpklpEdilberto Zamora Other bvma OfficeStart: 85-09-5214Ayxz examination performed Ericka [employer] Start: 58-92-0706Rmpmrb outpatient visit 25 minutes Edilberto Zamora Other bvma OfficeStart: 09-77-5371ixgfslikwdWZAYV D HIGHLANDERFacility:K0Jeffg: 07-28-2022 End: 21-26-6310mtyddjracrVOPZJ D HIGHLANDERFacility:T5Hjzlp: 90-09-2906NzfHytan L Schroeder Other bvma OfficeStart: 27-38-6696OtldvEdilberto Zamora Other bvKATHLEEN OfficeStart: 86-01-2846Zfnugq ServicesEricka Muniz Other bvma OfficeStart: 23-08-9417Zgbj examination performed Edilberto Schaeffernorth central bronx hospitalyaw [facility] Start: 07-27-2022 End: 90-06-8833Ijjuvk outpatient visit 25 minutesLergavi Lawrence Zamora Other bvma OfficeStart: 06-23-2022 End: 29-81-0695kghlaskqycBUIRY D [facility] HEALTHCAREFacility:Y0Nqfrk: 05-27-2022 End: 78-45-9265jbschdwcnwPXM [facility] Work Phone: Start: 05-27-2022 End: 99-24-0084Qcpotifuuq [facility] [place]Start: 05-26-2022 End: 14-82-8595jvnijmxbyuWJQ [facility] Work Phone: Start: 05-26-2022 End: 25-01-1533Ziqxnaq encounter procedureCinc[facility]-CT Strub RdStart: 69-28-7992Mvqggkhjpi [facility] [place]kyStart: 04-22-2022 End: 73-25-0290hnmsnzfqpwLJC [facility] Work Phone: Start: 04-22-2022 End: 16-14-4998Zsuxhye encounter procedureC[facility]-MRI Main CampusStart: 04-21-2022 End: 14-33-1044jwzbqhxiyiUMT [facility] Work Phone: Start: 04-21-2022 End: 69-57-6840Vyzhmcc encounter procedureCinc[facility]-MRI Main CampusStart: 46-84-5784Qthjapwkix [facility] [place]Start: 04-01-2022 End: 03-40-8157Clwvxrfmm department patient visitCincinnati Children'S [facility] Ctr- Emergency RoomStart: 69-25-1613Qzljtr outpatient new 20 minutesJeremy P Dyana Other BVKATHLEEN OfficeStart: 97-29-6790Fqqxse outpatient visit 15 minutesJeremy P Dyana Other BVKATHLEEN OfficeStart: 36-66-9261Dkzrsp outpatient visit 15 minutesJeremy P Dyana Other BVKATHLEEN OfficeStart: 22-15-0880Txfack outpatient visit 15 minutesJeremy P Dyana Other BVKATHLEEN OfficeStart: 38-23-3195ZhdJgxw R Muniz Other BVKATHLEEN OfficeStart: 16-19-5172Ortn R Muniz Other BVKATHLEEN OfficeStart: 04-61-6638Hbvtfm outpatient visit 15 minutesMark R Muniz Other BVMA OfficeStart: 40-60-7607WqqTbcmu L Schroeder Other BV[facility] OfficeStart: 56-98-5074ElpbuEdilberto Zamora Other BVMA OfficeStart: 16-17-2493Kuahxy outpatient visit 15 minutesJeremy P Dyana Other BVMA OfficeStart: 63-26-8802Gequ examination performed Edilberto [facility] Start: 05-60-5556Kzdgzf outpatient visit 25 minutes Edilberto Zamora Other BVKATHLEEN OfficeStart: 93-69-2228Rmgnmm outpatient visit 25 minutesJeremy P Dyana Other BVMA OfficeStart: 99-74-8261Tjxusu outpatient new 45 minutesJeremy P Dyana Other BVMA OfficeStart: 79-60-9924Uempmz ServicesJeremy P Dyana Other BVMA OfficeStart: 44-55-0579Rpkabn outpatient visit 25 minutesMark R Muniz Other BVMA OfficeStart: 22-55-4845Cxif examination performed Edilberto ZamoraLimestoneTheVegibox.com [facility] Start: 96-83-9465Zrqgky outpatient visit 25 minutes Edilbertogavi Zamora Other BVKATHLEEN OfficeStart: 50-93-9596VdxBmcke L Schroeder Other BVMA OfficeStart: 02-08-2022Medicare LabGuccioy Melinda Zamora Other 588-3026EMOY-MynMoodu: 95-42-8977Nrbxe Melinda Zamora Other BVKATHLEEN OfficeStart: 09-09-2021Medicare LabGuccioy Melinda Zamora Other 232-7720QUIO-RumNjzod: 56-25-3484Muqip Melinda Zamora Other 930-8670RPCH-LjpZsbjr: 74-50-2879Szjj examination performed Edilberto aZmoraTagArray [facility] Start: 17-31-0327Qzjnxj outpatient visit 25 minutes Edilbertogavi Zamora Other BVMA OfficeStart: 46-05-0203NnuAumf Pablo Muniz Other BVMA OfficeStart: 11-15-6950Gqja Pablo Muniz Other BVMA OfficeStart: 50-78-2842Pfigyv outpatient visit 25 minutesEricka Shah Muniz Other BVMA OfficeStart: 96-32-2013Foipaiqly for general adult medical examination without abnormal findingsSeattle MusclePharmLimestoneTheVegibox.com [facility] Start: 78-33-4577Qkqf exam performedEdilberto Fraziernchard [employer] [facility] Start: 15-05-4141Fholae outpatient visit 25 minutes Edilbertogavi Zamora Other BVMA OfficeStart: 03-02-2021Medicare LabEdilberto Jaraeder Other 956-8352HZFN-WpyAafyx: 79-21-4398Lxszfbriana Zamora Other 638-7885QTPK-RwmNtshx: 97-60-3688Uapsha outpatient visit 15 minutesMark Pablo Muniz Other BVMA OfficeStart: 22-53-8058Zhrhfz outpatient visit 15 minutesMark Pablo Muniz Other BVMA OfficeStart: 90-91-1478Fkqlmf outpatient visit 15 minutesMark Pablo Muniz Other BVMA OfficeStart: 09-29-2020Medicare LabGuccigavi Melinda Zamora Other 232-1525DSWL-IovLrapf: 40-92-9180Eibsp Melinda Zamora Other 390-4689LBDT-YfuLhrjp: 70-10-7420Lfvu exam performedSage Memorial Hospitalgavi ZamoraDoctors Hospital Baby Blendy [facility] Start: 70-39-9144Ctvqou outpatient visit 25 minutes Edilberto Zamora Other BVMA OfficeStart: 03-25-2020 End: 02-26-6208Bylacjv [facility] Start: 03-25-2020 End: 77-20-9665Vxvxgknvsk hospital visit by [facility] MRIComment on above:Right knee pain, unspecified chronicityStart: 98-59-6473Cbtnzk outpatient visit 15 minutesEricka Muniz Other BVMA OfficeStart: 02-12-2020 End: 49-95-9845Aiondel encounter procedureMARK Pablo [facility] HospitalStart: 02-12-2020 End: 79-02-0071Hbcnkaglby hospital visit by [facility] MRIComment on above:Acute pain of right shoulderStart: 02-50-5324Sopbnv outpatient visit 15 minutesEricka Muniz Other BVMA OfficeStart: 12-28-2019 End: 54-72-7189Nwjxuamyzn hospital visit by Cathy Escalona Work Phone: mthz ORComment on above: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, initial encounter (Primary Dx)Start: 04-34-6455Exhrgz outpatient visit 25 minutesEdilberto Zamora Other BVMA OfficeStart: 12-26-2019 End: 68-20-7139Pobztvz encounter procedureSChildren's Hospital for [facility] Start: 12-26-2019 End: 17-65-1357Octcmabikq hospital [facility] by [facility] Lab Drawing RoomMTHZ LaboratoryComment on above:ArrivedStart: 12-24-2019 End: 17-75-3878Jqeiraw encounter procedureSChildren's Hospital for Rehabilitation Start: 12-24-2019 End: 65-35-2781Htnwhawsdb hospital visit by physicianN[facility] Covid19 Pat Screening ScheduleMTHZ EKGStart: 96-88-9649JgrRjnmv L Schroeder Other BVMA OfficeStart: 20-96-0107Byrno L Schroeder Other BVMA OfficeStart: 24-77-2572Gatomn outpatient visit 15 minutesMark [employer] Other BVMA OfficeStart: 68-82-9794Tnwuqn outpatient visit 25 minutesMark R [employer] Other BVMA OfficeStart: 92-95-8664PnmWtzw R [employer] Other BVMA OfficeStart: 68-27-5344Ftdg R [employer] Other BVMA OfficeStart: 86-90-8743Cfio exam performedLerTag'By Start: 51-61-2079Zpvgmq outpatient visit 25 minutes Edilberto Zamora Other BVMA OfficeStart: 97-52-5016FrtNsudm L Schroeder Other BV[facility] OfficeStart: 76-56-7702VgrraEdilberto Zamora Other BVMA OfficeStart: 24-68-1307Yiyuklgax for general adult medical examination without abnormal findingsSage Memorial HospitalTag'By Start: 47-51-7987Nrsxhsf general medical examination at a health care facilitySeattle [employer] Start: 19-14-0251Dvtmgguj preventive med est patient 40-64yrsMark R Muniz Other [facility] OfficeStart: 92-60-7778OpqZggv R Muniz Other [facility] OfficeStart: 72-13-1431Khet R Muniz Other [facility] OfficeStart: 27-58-7477Lrou exam performedLergavi [employer] Start: 34-91-2510Wpflfs outpatient visit 25 minutes Edilberto Melinda JaraZamora Other [facility] OfficeStart: 59-64-6512Dpimeu-up visitNashoba [facility] Medical CenterStrikeface Start: 57-23-2593Dhnnkt outpatient visit 5 minutesN[facility] CenterStrike[facility] Start: 41-88-6130Dfhuvfjigktfb follow-up visitEdilberto [employer] Start: 37-12-2389NarpjhynwBqlag Trudy Other [facility] OfficeStart: 06-76-8877Lqihf Trudy Other [facility] OfficeStart: 78-36-4446GvoXdgjn L Schroeder Other [facility] OfficeStart: 71-22-1406HlfneEdilberto Zamora Other [facility] OfficeStart: 23-03-8533GlbmhmygqJkdjb Trudy Other [facility] OfficeStart: 52-58-2400Ycmmw Trudy Other [facility] OfficeStart: 25-71-7063Nlpozm outpatient new 20 minutesChase Trudy Other [facility] OfficeStart: 39-18-2398Cdgowrzou for general adult medical examination without abnormal findingsSage Memorial HospitalTag'By Start: 37-36-0796Eskiyvf general medical examination at a health care facilityMark FlavioTagArray Inc Start: 57-40-0965Igleju outpatient visit 15 minutesEricka Muniz Other [facility] OfficeStart: 02-95-8744Zdkohd ServicesNatty Paniagua Other [facility] OfficeStart: 98-74-4121Vbqbgvwf naomi Jungam Other [facility] OfficeStart: 10-11-5734Iazk exam performedLergavi [employer] Start: 98-98-4590Cgvztu outpatient visit 25 minutes Edilberto Zamora Other [facility] OfficeStart: 39-70-8710BjoQzkxe L Schroeder Other [facility] OfficeStart: 20-05-0493Ghjba L Schroeder Other [facility] OfficeStart: 27-53-0225Uyinaoi encounter procedureMAUDAY Ledezma [facility] PhysiciansStart: 10-12-2018 ProcedureDarigoberto Morris Other op BVHStart: 07-08-0086Ymmaa J Meier Other op BVHStart: 13-60-8859Bxid exam performedEdilberto Zamora Other [facility] OfficeStart: 44-19-0521Zjdsjg outpatient visit 25 minutesEdilberto Zamora Other [employer] Start: 30-58-2137Qjxnzk ServicesEdilberto Zamora Other [facility] OfficeStart: 82-45-3048BjligEdilberto Zamora Other [facility] OfficeStart: 01-88-4409Mekillqif for general adult medical examination without abnormal findingsGuccigavi [employer] Start: 80-55-6179Hfycabp general medical examination at a health care facilityLeroy SeraTagArray Inc Start: 77-15-0639Jpzzlb outpatient visit 25 minutesMark R Muniz Other [facility] OfficeStart: 90-27-4859TifYwkt R Muniz Other [facility] OfficeStart: 94-39-2524Nbyt R Muniz Other [facility] OfficeStart: 76-14-4192Lfxkvd ServicesLergavi Zamora Other [facility] OfficeStart: 39-54-1702Npmbs Melinda Zamora Other [facility] OfficeStart: 37-30-2203VymynmztgMgzqgke Gigi Josederrickjorge Other op BVHStart: 16-16-5440Joxhmbx Gigi Joseschjorge Other op BVHStart: 29-77-6629Cqqp exam performedLergavi Zamora Other [facility] OfficeStart: 27-09-3342Pvqfmp outpatient visit 25 minutesLeroy Melinda Zamora Other [employer] Start: 80-43-1344QcoBmqcs Melinda Zamora Other [facility] OfficeStart: 32-63-6755Odbxh L Schroeder Other [facility] OfficeStart: 31-15-4224Ngvn-Kal Muniz Other [facility] OfficeStart: 04-20-2018 End: 18-04-6261Abac R Muniz Other [facility] OfficeStart: 84-82-9225Bjngcy ServicesPetecarmina Paniagua Other [facility] OfficeStart: 28-48-7152Hdlk exam performedLergavi Zamora Other [facility] OfficeStart: 51-80-3315Csxwpf outpatient visit 25 minutesLergavi Zamora Other [employer] Start: 05-65-8606XakSohfs L Zamora Other [facility] OfficeStart: 55-44-7857Rcsqb L Zamora Other [facility] OfficeStart: 02-06-1995Cttsya outpatient visit 25 minutesMark R Muniz Other [facility] OfficeStart: 20-15-4653XxlZixj R Muniz Other [facility] OfficeStart: 71-15-8472Tkgg R Muniz Other [facility] OfficeStart: 49-92-5351Ukgqic ServicesMark R Muniz Other [facility] OfficeStart: 41-74-7321Qhxl R Muniz Other [facility] OfficeStart: 17-90-4021Kiwq exam performedLeroy L Zamora Other [facility] OfficeStart: 26-85-6682Zwetkn outpatient visit 25 minutesLeroy L Zamora Other [facility] [employer] Start: 79-15-6486Wiidmq ServicesMark R Muniz Other [facility] OfficeStart: 50-43-9624Bmqf R Muniz Other [facility] OfficeStart: 15-64-9123EjsGhryq L Zamora Other [facility] OfficeStart: 36-43-9668Gbyxq L Zamora Other [facility] OfficeStart: 26-10-4189Jpbqrv ServicesLeroy L Zamora Other [facility] OfficeStart: 93-87-7612Excqg L Zamora Other [facility] OfficeStart: 75-26-6048Bjpoup outpatient visit 25 minutesMark R Muniz Other [facility] OfficeStart: 99-79-2642EllRdnt R Muniz Other [facility] OfficeStart: 86-16-7240Gats R Muniz Other [facility] OfficeStart: 64-66-6968Kbddjy ServicesNatty Paniagua Other [facility] OfficeStart: 56-22-6445Ewjsrdpr z Graham Other [facility] OfficeStart: 61-30-0846Gikb exam performedEdilberto ZamoraEssence Group Holdings Start: 84-01-5164Bgbbpn outpatient visit 25 minutes Edilbertogavi Zamora Other [facility] OfficeStart: 29-12-9830CdtQmazq L Schroeder Other [facility] OfficeStart: 08-46-2023Ebmgc L Schroeder Other [facility] OfficeStart: 64-25-5826Aqrfff outpatient visit 15 minutesMark Pablo Muniz Other [facility] OfficeStart: 28-49-3129Vmfn exam performedLergavi Zamora Other [facility] OfficeStart: 95-69-4394Pchjfw outpatient visit 25 minutesLergavi Zamora Other [employer] Start: 82-70-4924OnpGnxft L Schroeder Other [facility] OfficeStart: 15-56-9273Rswwv L Schroeder Other [facility] OfficeStart: 64-38-5825Gwjojz outpatient visit 25 minutesEricka R Muniz Other [facility] OfficeStart: 02-17-2017 End: 82-64-8003Iwaoi SrvcMark R Muniz Other [facility] OfficeStart: 02-17-2017 End: 60-06-8535Newi R Muniz Other [facility] OfficeStart: 76-41-1306Adnbyq outpatient visit 25 minutesMark R Muniz Other [facility] OfficeStart: 32-82-6221Yznp exam performedLergavi L Zamora Other [facility] OfficeStart: 84-23-5145Fwoafy outpatient visit 25 minutesLeroy L Zamora Other [employer] Start: 36-84-2178QqpFwoqt L Zamora Other [facility] OfficeStart: 76-21-4680Rplrp L Zamora Other [facility] OfficeStart: 51-02-6976Nltfwh outpatient visit 25 minutesMark R Muniz Other [facility] OfficeStart: 55-46-3204AqvCfxx R Muniz Other [facility] OfficeStart: 36-30-2596Ahmo R [employer] Other [facility] OfficeStart: 18-75-9153Epzis vcDarigoberto Morris Other [facility] OfficeStart: 49-42-0921Wlgmr J Meier Other [facility] OfficeStart: 98-32-9700Yqky exam performedLeroy L Zamora Other [facility] OfficeStart: 00-53-8030Znnzdx outpatient visit 25 minutesLeroy L Zamora Other [employer] Start: 44-36-4314RqvFkbus L Zamora Other [facility] OfficeStart: 98-36-5063Qoiea L Zamora Other [facility] OfficeStart: 95-11-9781Janomj outpatient visit 25 minutesMark R Muniz Other [facility] OfficeStart: 84-74-0548Jujm exam performedLeroy L Zamora Other [facility] OfficeStart: 91-52-9664Ieyknx outpatient visit 25 minutesLeroy L Zamora Other [employer] Start: 69-45-1257JppLjgmu L Zamora Other [facility] OfficeStart: 99-01-5341Zvqig L Zamora Other [facility] OfficeStart: 60-75-4023Pcnpnu outpatient visit 15 minutesMark R Muniz Other [facility] OfficeStart: 02-25-1751Cojonu outpatient visit 15 minutesMark R Muniz Other [facility] OfficeStart: 51-50-6405Dhlmhz outpatient visit 15 minutesMark R Muniz Other [facility] OfficeStart: 31-07-3133Yshtdt outpatient visit 15 minutesLergavi L Zamora Other [facility] OfficeStart: 85-17-6232OgvBoegs L Zamora Other [facility] OfficeStart: 09-31-9233Hjxsm L Zamora Other [facility] OfficeStart: 57-52-7583Zmtfss outpatient visit 25 minutesMark R Muniz Other [facility] OfficeStart: 55-64-8013GguMykfe L Zamora Other [facility] OfficeStart: 34-95-5437Ggwwo L Zamora Other [facility] OfficeStart: 19-46-1345Pcqx exam performedLergavi L Zamora Other [facility] OfficeStart: 22-15-3742Mqhqbo outpatient visit 25 minutesLergavi L Zamora Other [employer] Start: 86-82-2970GarZgysy L Zamora Other [facility] OfficeStart: 30-28-9010Rihgd L Zamora Other [facility] OfficeStart: 09-89-9181Uocshu outpatient visit 15 minutesMark R Muniz Other [facility] OfficeStart: 41-59-2398Wvry exam performedLergavi ZamoraEssence Group Holdings Start: 62-59-8823Amguvk consultation new/estab patient 80 minLeroy L Zamora Other [facility] OfficeStart: 06-42-9718Smnpuk ServicesMark R Muniz Other [facility] OfficeStart: 97-05-3410Bywt R Muniz Other [facility] OfficeStart: 87-58-9312Kqvohp outpatient visit 25 minutesMark R Muniz Other [facility] OfficeStart: 21-21-2771PdqeolgwtCkvm D Watson Other op BVHStart: 89-50-7193Vrrt D Watson Other OP [facility]Start: 57-37-6282Azjrkg consultation new/estab patient 60 minJesus Del Cid Other [facility] OfficeStart: 28-59-2807Yinxdq ServicesMark R Muniz Other [facility] OfficeStart: 22-67-6943Jctx R Muniz Other [facility] OfficeStart: 38-03-7024Cprzx SrvcMark R Muniz Other [facility] OfficeStart: 31-00-2003Biow R Muniz Other [facility] OfficeStart: 26-75-3075PvpPmto R Muniz Other [facility] OfficeStart: 08-05-2015 End: 38-71-6735Jgpj R Muniz Other [facility] OfficeStart: 08-05-2015 End: 68-10-4638Ijgur SrvcMark R Muniz Other [facility] OfficeStart: 62-03-7412Qqhyhj outpatient visit 15 minutesLindsay Kimball Other [facility] OfficeStart: 60-16-6496Azbixj outpatient new 45 minutesMark R Muniz Other [facility] Procedures DateProcedureProcedure DetailPerforming ClinicianStart: 41-15-3273Teidgbjccvfrx metabolic panelMark FoxStart: 62-39-5286Qcuqnhidjc A1c measurementMark FoxStart: 53-54-2777Xdadi panelMark FoxStart: 29-25-6732Xzznk SchwormStart: 07-19-2024 Plain chest X-rayEricka Muniz MD Work Phone: Start: 11-02-8897Drajozbegkmwf metabolic panelMark Umniz Start: 55-34-4700Sgklxhxawk A1c measurementMark FoxStart: 66-60-3762Hdfio panel Ericka FoxStart: 98-64-1843Tornkfm stimulating hormone measurementMark FoxStart: 78-58-3957Yeunfow B12 measurementWendi SchwormStart: 83-48-0830Mgvaxuzc foot examinationMark FoxStart: 15-32-4115Urrpxevdeu A1c measurementMark FoxStart: 58-21-1915Vsdy recent diastolic blood pressure 80-89 mm hgWendi SchwormStart: 08-61-0490Annh recent systolic blood pres>/equal 140 mm hgWendi SchwormStart: 57-61-7026Vfex recent systolic blood pressure <130 mm hgWendi SchwormStart: 00-09-3848Ylml FoxStart: 35-99-3221Hhnydljrxmomz metabolic panelMark FoxStart: 07-40-1451Kjsbxgayfbm mean corpuscular volume determinationMark FoxStart: 62-03-7105Axjem panelMark FoxStart: 91-71-9337Yjxp FoxStart: 07-28-2023 Comprehensive metabolic panelWendi SchwormStart: 53-08-1927Plbiqidoga A1c measurementWendi SchwormStart: 45-89-2609Zpeyz panelWendi SchwormStart: 65-09-3879Odrgp SchwormStart: 01-25-2023 End: 62-70-5802Dxgmbjokwcbnp metabolic panelMark FoxStart: 64-40-3421Csrsjhzq foot examinationMark FoxStart: 91-07-4039Imcinmbghna mean corpuscular volume determinationMark FoxStart: 14-60-3566Nzgh recent diastolic blood pressure < 80 mm hgMark FoxStart: 65-65-5003Ejdo recent systolic blood pressure <130 mm hgMark FoxStart: 01-25-2023 End: 92-53-5173Mkvg FoxStart: 43-85-4615Qkrnskumyp A1c measurementMark FoxStart: 98-40-6246Omhww panelMark FoxStart: 57-75-8824Var UA (for Ketones)Edilberto ZamoraStart: 22-48-7142Xypgp inorganic phosphate measurementLer Zamora Start: 07-97-2869Qhlv FoxStart: 18-57-1912Gapjkacz foot examinationLerAspirus Iron River HospitalStart: 42-72-1629Onoqin cur meds by liv Reveles WellersburgStart: 64-81-5595Knqlachcmbyqe of current medicationsMark FoxStart: 07-21-2022 Comprehensive metabolic panelLerAspirus Iron River HospitalStart: 17-69-8698Bfwloeqlom A1c measurementLerAspirus Iron River HospitalStart: 62-58-7413NGDIPADDJSVH/Urine Creat RatioLerAspirus Iron River HospitalStart: 54-49-7672Qnhbddandux hormone measurementLerAspirus Iron River HospitalStart: 82-49-0834Gocllcj D, 25-hydroxy measurementLerAspirus Iron River HospitalStart: 37-38-9842Hxgx FoxStart: 88-22-9058Iruot panelLerAspirus Iron River HospitalStart: 38-23-3750JU of right foot Start: 72-17-3407M-ray of left ankleMark FoxStart: 58-85-7433CZG of right foot with contrastStart: 87-43-1085IVI of right ankle with contrastStart: 04-05-2022 C-reactive protein measurementMark FoxStart: 38-62-6262Wneykbgy blood countMark FoxStart: 81-88-9245Whudkqojlexnt metabolic panelMark FoxStart: 04-05-2022 Erythrocyte sedimentation rate, non-automatedMark FoxStart: 23-21-8879TLC of lower extremityLerAspirus Iron River HospitalStart: 59-76-3389Uznto lactate measurementMark Muniz Start: 08-57-3232Dkgqtr scan of lower limb veinsStart: 70-54-2713T-ray of right footStart: 67-57-4276Gvvabj cur meds by liv Armstrong MarchandStart: 38-67-5900Qzstkdgdfmfis of current medicationsMark FoxStart: 86-12-5330M-ray of left ankleJeremy SeptemberandStart: 30-82-1132Rreobvjohr radiologic examination Bo Gunn Other Start: 23-54-8927Iyufty cur meds by liv Armstrong MarchandStart: 19-40-2342Lbheyzytudbjr of current medicationsMark FoxStart: 24-12-6044Soynpikdq of ankleMark FoxStart: 94-15-8150Iantybg boot, non- pneumatic, with or without joints, with or without interface material, prefabricated, tpd-fdb-fsvsyYdio FoxStart: 10-78-3996C-ray of left ankleJeremy SeptemberandStart: 43-48-8627F-ray of left footJeremy tart: 02-17-2022 End: 99-85-4288Xtkweyxhkrren metabolic panelJeremy tart: 02-17-2022 Destruction of lesion of skinMark FoxStart: 31-99-2204Ndjauu cur meds by liv Santiago FoxStart: 85-74-9594Nmzjrcjzzbblt of current medicationsMark FoxStart: 05-00-2637Cbqbyndfhg A1c measurementJefountain valley regional [facility] tart: 17-44-1248Lwnut panel Franky SeptemberSnoqualmie Valley Hospitalrt: 64-64-3350PGBPVQVQKBRS/Urine Creat RatioJeremy [facility] [place] Start: 78-19-0786Pgqx FoxStart: 75-23-3115Jhrmyx cur meds by liv Muniz Start: 78-25-7048Xabwbqpwqcecy of current medicationsMark FoxStart: 01-18-2022 Diabetic foot examinationLer [facility]kmarietta memorial hospitalStart: 18-55-4829Kts UA (for Ketones) Edilberto [facility] hospitalStart: 64-11-6607Lddu FoxStart: 54-53-9555Wywfqw cur meds by liv [facility] hospitalStart: 21-54-0172Gcuqeitvwuopr of current medicationsMark FoxStart: 03-23-6340Sepktztdv of callusMark FoxStart: 18-79-3908Sqkbxv cur meds by liv Armstrong [facility] Janesvilletart: 64-76-6395Fyjrjhdfmhrox of current medications Ericka FoxStart: 98-55-5688Fuxrxdzzzzbnk metabolic panelEdilberto JaraAlta Vista Regional Hospitalart: 08-00-1792Wiajlerrjdv mean corpuscular volume determinationLergavi Jraamarietta memorial hospitalStart: 88-86-2830Zgduu glutamyl transferase measurementLergavi [facility] hospitalStart: 46-84-9848Qyiigukgrs A1c measurementLeroy Wellersburgart: 01-01-2022 MICROALBUMIN/Urine Creat RatioLeroy WellersburgStart: 56-33-0223Hflz FoxStart: 27-97-1642Xhtuam cur meds by liv Armstrong SeptemberSnoqualmie Valley Hospitaltart: 10-20-2021 Documentation of current medicationsMark TroutvilleStart: 15-56-2189Rzkymcaastt of nail Ericka FoxStart: 94-47-0532Xkimcztp of abscessMark FoxStart: 77-77-2494Xqeevamiw on skinMark FoxStart: 01-99-7181Hmn-scan lxtr art/artl bpgs uni/lmtd studyJeremy tart: 28-99-9834Xxn-invasive physiologic study extremity 3 levlsJeremy tart: 84-53-6732Raomgh cur meds by liv Armstrong SeptemberSnoqualmie Valley Hospitaltart: 27-89-8838Fuzvaztqpabwr of current medicationsMark FoxStart: 35-98-6241Wtppmsp ultrasonography of artery of lower limbJeremy tart: 09-78-8929Noqlm X- ray of toeJeremy SeptemberSnoqualmie Valley Hospitaltart: 96-22-7080Jdegh microscopy, culture and sensitivitiesJeremy rt: 17-51-2251Djrfshbi foot examinationLeroy Wellersburgart: 70-71-2517Oaoeht cur meds by liv Reveles [place]burgStart: 62-46-7811Secrmuvktlojy of current medicationsMark [place]outvilleStart: 80-11-7838KV-Dip Edilberto [place]ersburgStart: 16-86-6650Tizj FoxStart: 25-59-1875Hghznuxzeiqmi metabolic panelLeroy WellersburgStart: 25-34-5036Usfehomkqxz mean corpuscular volume determinationLeroy WellersburgStart: 80-04-5875Uamttoxogu A1c measurementLeroy [facility]art: 30-12-5477Wopyy panelLeroy [facility] Hospitalart: 65-27-0418Wpeyy metabolic panel calcium totalMark FoxStart: 40-26-8181Dlgwm glutamyl transferase measurementLeroy WellersburgStart: 23-26-5401Aduvxmqcdk A1c measurementMark Muniz Start: 69-77-0554Dqsbyipxdslev metabolic panelMark FoxStart: 06-24-2021 Erythrocyte mean corpuscular volume determinationMark FoxStart: 06-24-2021 Hemoglobin A1c measurementMark FoxStart: 42-91-9228Ldxdb panelMark FoxStart: 48-80-0736Ymt UA (for Ketones)Edilberto MarekederStart: 93-42-3689Ovwy FoxStart: 51-53-4211Mvbdlmjn foot examinationLeroy M[facility]kmarietta memorial hospitalStart: 06-62-9691Gfvsvo cur meds by liv JaraederStart: 15-43-0937Xfaswdlcoahfy of current medicationsMark FoxStart: 14-57-7079Ctfxtpotiikfs metabolic panelLergavi Zamora Start: 27-87-8259Glrjlvoxalv mean corpuscular volume determinationLeroy MarekStart: 64-74-2518Sjudiotstw A1c measurementLeroy MarekbrianStart: 44-98-2025Sfsoectvooa hormone measurementLeroy M[facility]kmarietta memorial hospitalStart: 86-11-6192Tjlkp inorganic phosphate measurementLeroy [facility]kmari[facility] hospitalStart: 12-23-2020 End: 27-58-9527Peydpmmmwfdwo metabolic panelMark FoxStart: 12-79-7204Ofghdi cur meds by liv wellsSe[place] FoxStart: 20-29-7502Sqawjvkrngzye of current medications Ericka FoxStart: 00-92-5768Wcdhkbxvwee mean corpuscular volume determinationMark FoxStart: 41-97-3133Bsaqlmsjoz A1c measurementMark FoxStart: 55-32-8870Qxeua panelMark FoxStart: 83-19-5427MEWYWRVUGYXR/Urine Creat RatioGuccigavi Zamora Start: 30-61-2846Jmkterghhw, automatedMark FoxStart: 89-06-5221Rbtr FoxStart: 46-40-5418Ycr UA (for Ketones)Edilberto MarekederStart: 06-59-2959Czwv FoxStart: 58-03-2566Mseduwxe foot examinationLeroy MarekbrianStart: 42-52-8059Dmi meds verified w/pt or reLeroy SchroederStart: 94-54-7278Zujbsmhfisqfv of current medicationsMark FoxStart: 40-06-8808Mtfpumdqccbwb metabolic panelLergavi Zamora Start: 06-09-8633Lzjolkncxy A1c measurementMark FoxStart: 21-87-1975Kbiocqqacp glycosylated u6oGikbggavi ZamoraStart: 27-61-1624Rqt UA (for Ketones)Edilbertogavi ZamoraStart: 36-05-8724Uizk FoxStart: 05-80-9901Hfvwefdw foot examination Edilbertogavi ZamoraStart: 55-39-0539Rpa meds verified w/pt or reLeroy Sera Start: 19-99-7403Bwnggrmloapwj of current medicationsMark FoxStart: 03-28-2020 Glucose quantitative blood xcpt reagent stripLeroy MraekStart: 03-28-2020 Hemoglobin A1c measurementMark FoxStart: 80-09-8424Uaqtemsqbr glycosylated a1c Edilberto ZamoraStart: 52-15-7538Plsjkno function panelLergavi ZamoraStart: 63-73-5825Uxnmnqj function panelEricka FoxStart: 74-88-6202Yyz any jt lower extrem w/o contrast matrlLUIS JAKATHERINEGUIStart: 71-67-4802Bjd any jt lower extrem w/o contrast matrlKara J [place] Work Phone: start: 50-45-1986Rar meds verified w/pt or reMark Muniz Start: 34-62-2984Forqvhlneraou of current medicationsMark FoxStart: 02-12-2020 Mri any jt upper extremity w/o contrast matrlLUIS JAKATHERINEGUIStart: 73-60-8977Twd any jt upper extremity w/o contrast matrlKara J Phoenix Work Phone: start: 76-33-0464Xvx meds verified w/pt or reLeroy SeraStart: 43-50-9963Bctmzaquybcut of current medicationsMark FoxStart: 61-07-5002ZQZEMQL, WHOLE BLOODSteven C Escalona Work Phone: Start: 44-82-3851Byrgh metabolic panel calcium total Edilberto ZamoraStart: 71-03-6903Xol meds verified w/pt or reLeroy Sera Start: 67-54-5381Kvaednsbfcwdq of current medicationsMark FoxStart: 12-27-2019 Hemoglobin A1c measurementMark FoxStart: 66-92-2568Dgrvrhseql glycosylated a1c Edilberto ZamoraStart: 74-57-6111Cuonn of urea nitrogen quantitativeLUIS CALVILLO Start: 45-86-1643Nsvpu count hematocritLUIS JAUREGUIStart: 62-91-4932Lfilzpshof bloodLUIS JAUREGUIStart: 41-50-7930Qlwnvuaexce panelLUIS JAUREGUIStart: 59-62-7433Qoivyyi quantitative blood xcpt reagent stripLUIS JAKATHERINEGUIStart: 57-05-2220Ytmvq of urea nitrogen quantitativeSteven C [place] Work Phone: Start: 83-13-1101Vkcci count hematocritSteven C [place] Work Phone: Start: 39-54-6305Kkpmglisni bloodSteven C [place] Work Phone: Start: 00-77-9256Aytfnqnfstj panelSteven C [place] Work Phone: Start: 14-26-3835Czdpgdk quantitative blood xcpt reagent stripSteven C [place] Work Phone: Start: 77-99-0185Sus routine ecg w/least 12 lds w/i&r TARIK JAUREGUIStart: 62-97-3702ASP REPORTLUIS JAUREGUIStart: 59-37-5077YOVMV-19 TARIK JAUREGUIStart: 05-32-3004Dad routine ecg w/least 12 lds w/i&rSteven C [place] Work Phone: Start: 78-71-4096SHJ REPORTHpf ScanningStart: 69-16-2911RWHUI-Luis E Calvillo Work Phone: Start: 07-81-6911Odixgafinnukb metabolic panelMark Muniz Start: 17-12-5335Wldwhrjvyn A1c measurementMark FoxStart: 96-44-5608Txhhwtzeia glycosylated t7wCejw FoxStart: 42-07-8543Birsh panelMark FoxStart: 11-27-2019 Lipid panelMark FoxStart: 34-30-4786FBHEWNNFUUUG/Urine Creat RatioMark FoxStart: 44-10-0356Yxft FoxStart: 91-34-8128Ysz meds verified w/pt or reMark FoxStart: 37-62-4594Kvroguctohmlp of current medicationsMark FoxStart: 60-79-7837Tvgpk metabolic panel calcium totalLergavi [facility] hospitalStart: 93-65-3114Gmxvzncn foot examinationLergavi ZamoraStart: 05-24-6770Lhl meds verified w/pt or reLeroy SeraStart: 66-14-7873Vwuuwpxfrwpth of current medicationsMark FoxStart: 71-77-9149Zthdo of glutamyltrase gammaLergavi [facility] hospitalStart: 57-83-7113Iyocg metabolic panel calcium totalLergavi [facility] hospitalStart: 44-82-2359Jgwdj glutamyl transferase measurementMark FoxStart: 14-57-4537Zwgmzpxvuk A1c measurementMark FoxStart: 45-41-9040Jwrbtnpnar glycosylated m6qSqmcm [facility]arietta [facility] hospitalStart: 05-28-2019 Doc meds verified w/pt or reMark FoxStart: 58-05-0756Dnaeutbujhsgh of current medicationsMark FoxStart: 65-57-3623Gegot of prostate specific antigen totalMark FoxStart: 89-58-7932Anrqk count complete automatedMark FoxStart: 05-22-2019 Comprehensive metabolic panelMark FoxStart: 94-45-5085Vgagbwlvwqu mean corpuscular volume determinationMark FoxStart: 32-91-1900Zjwvg panelMark Muniz Start: 97-94-2703Iizps panelMark FoxStart: 46-94-5050Iwcpnzeh specific antigen measurementMark FoxStart: 25-74-0049Onjoxovprk, automatedMark FoxStart: 05-57-9149Kfska dip stick/tablet rgnt auto w/o microscopyMark FoxStart: 63-26-4338Obuhfazj foot examinationLergavi ZamoraStart: 79-32-6167Yjr meds verified w/pt or reLeroy SeraStart: 71-68-9407Zqwhnsdgrearv of current medicationsMark FoxStart: 49-53-2677Hpfns of glutamyltrase gammaChase Trudy Start: 15-89-0398Qetehqqbholjh metabolic panelChase TrudyStart: 04-13-2019 Gamma glutamyl transferase measurementMark FoxStart: 38-06-8734Jsudiwqlbk A1c measurementMark FoxStart: 07-09-6254Dlxmjdkeca glycosylated p6nHwlko Trudy Start: 12-47-3932NMHLAZLDNIJO/Urine Creat RatioChase TrudyStart: 04-13-2019 Ericka MunizStart: 46-43-0977Bsgkhrflrrebr follow-up visitMark FoxStart: 03-29-2019 Doc meds verified w/pt or reChase Scaravenir [facility] at surpriseughStart: 04-79-3977Gbyyckfyuczoe of current medicationsMark FoxStart: 70-70-0868Hus b9 lesion mrgn xcp sk tg t/a/l 2.1-3.0 cmCSelect Specialty Hospital - McKeesportStart: 56-30-1521Yjmsivrc of lesion of skinMark Muniz Start: 57-60-4232Cmksg closure of wounds of extremitiesMark FoxStart: 03-29-2019 Repair intermediate s/a/t/e 2.6-7.5 cmCSelect Specialty Hospital - McKeesportart: 44-76-9252Hxmtr of prostate specific antigen totalLergavi [facility] hospitalart: 35-77-8491Kpwed count complete automatedLer Marekmarietta memorial hospitalStart: 07-67-1767Kgvoojemqnrqt metabolic panel Edilberto [facility] hospitalStart: 30-33-4346Ikepqkgbzqt mean corpuscular volume determinationMark FoxStart: 63-55-7805Dnptotxnlb A1c measurementMark FoxStart: 85-98-2962Becdkmqjvv glycosylated s8dKhnze M[facility]kmarietta memorial hospitalStart: 14-88-4935Evvso panel Edilberto MarekAlta Vista Regional Hospitalart: 81-43-6383Wxcae panelMark FoxStart: 02-27-2019 MICROALBUMIN/Urine Creat RatioLer [facility]kmari[facility] hospitalStart: 66-26-6171Rchlvicz specific antigen measurementMark FoxStart: 32-54-9519Ulmy FoxStart: 58-77-6603Eyi meds verified w/pt or reChase [facility]urnett medical centerStart: 86-13-7805Csvmcccclsjeb of current medicationsMark FoxStart: 39-30-8936Qzua Tag removal (SKNTG)Edilberto Zamora Start: 71-38-6797Lxid FoxStart: 36-67-6274Jdp meds verified w/pt or reMark Muniz Start: 66-97-9751Pfvagyagtuuye of current medicationsMark FoxStart: 01-02-2019 Medical nutrition re-assmt&ivntj indiv ea 15 mLeroy M[facility]kmari[facility] memorial hospitalStart: 12-12-2018 Diabetic foot examinationLer MarekAlta Vista Regional Hospitalart: 61-09-4876Uzkuthu measurement, quantitativeMark FoxStart: 27-23-3852Fylattx quantitative blood xcpt reagent stripLeroy M[facility]km[facility] hospitalStart: 51-09-9358Qxdaavilmc A1c measurementMark FoxStart: 88-36-0582Hnwivfomae glycosylated m1xLdogu [facility]km[facility] hospitalStart: 91-55-4962Rinunzax foot examinationLeroy [facility]km[facility] hospitalStart: 46-04-0991Hqk meds verified w/pt or re Edilberto [facility]km[facility] hospitalStart: 39-04-4607Xubvjkcndbewg of current medicationsMark Muniz Start: 88-58-2068Zfelikx nutrition re-assmt&ivntj indiv ea 15 mMark FoxStart: 78-04-3072Dtndw count complete automatedLeroy [facility]ari[facility] hospitalStart: 09-17-2018 Erythrocyte mean corpuscular volume determinationMark FoxStart: 09-17-2018 Glucose measurement, quantitativeMark FoxStart: 85-48-5621Gtottgv quantitative blood xcpt reagent stripMark FoxStart: 43-64-2010Utexuriptu A1c measurementMark FoxStart: 17-88-9907Lnmehhiroc glycosylated r2lFejk FoxStart: 86-38-1915Fxmrfkf function panelMark FoxStart: 59-66-3086Jcbabkq function panelMark FoxStart: 07-65-0719Pnnntox B12 and FolateLergavi [facility] hospitalStart: 62-45-3645Qugu FoxStart: 31-18-1940Vywst of prostate specific antigen totalLergavi [facility] hospitalStart: 63-76-5060Mgnwijqfwkncv metabolic panelLeroy [facility] hospitalStart: 09-01-2018 Hemoglobin A1c measurementMark FoxStart: 50-17-2638Hbhprckowh glycosylated a1c Edilberto [facility] hospitalStart: 52-70-8465Gqsql panelLeroy SchroederStart: 95-64-4715Lxtqp panelMark FoxStart: 09-17-4782SLZWXHARZJAS/Urine Creat RatioLergavi Zamora Start: 38-06-8753Fyejzhjd specific antigen measurementMark FoxStart: 09-01-2018 Ericka FoxStart: 86-60-5589Myn meds verified w/pt or reLeroy M[facility]km[facility] hospitalStart: 47-18-6825Lrpwxzfeulmcp of current medicationsMark FoxStart: 94-36-1676Camnkgr nutrition re-assmt&ivntj indiv ea 15 mLeroy SeraStart: 88-91-7068Aeaelzxg foot examinationLeroy [facility] hospitalStart: 90-08-4579Zde meds verified w/pt or re Edilberto SeraStart: 83-53-6860Axfqdvyxrabcd of current medicationsMark Flavio Start: 59-72-7427Paipqqh measurement, quantitativeMark FlavioStart: 06-19-2018 Glucose quantitative blood xcpt reagent stripGuccigavi ZamoraStart: 06-19-2018 Hemoglobin A1c measurementMark Start: 47-56-6898Mxmijwwtvu glycosylated a1c Edilberto SeraStart: 52-66-8326Rndaqod nutrition re-assmt&ivntj indiv ea 15 m Ericka MunizStart: 71-43-4062Tvvetypf foot examinationLergavi MarekbrianStart: 03-16-1280Xgxxhbz measurement, quantitativeMark FlavioStart: 66-14-6232Ebpdwyr quantitative blood xcpt reagent stripChase Quickgladysluis miguelStart: 01-73-7045Rxugdbfutp A1c measurementMark FlavioStart: 09-44-7815Vqrktidral glycosylated y0dZmwin AbdelrahmandarleneStart: 07-25-2540RPEASZEARVID/Urine Creat RatioChase YatesStart: 58-76-1931Sgen FlavioStart: 22-97-8677Cdl meds verified w/pt or reLeroy Sera Start: 79-22-7734Mjauexxfifdrb of current medicationsMark FoxStart: 02-23-2018 Comprehensive metabolic panelLergavi ZamoraStart: 43-64-9960Vxbbozqnlv A1c measurementMark FlavioStart: 43-64-2403Ymgaldjfmo glycosylated o3hJpvbqEdilberto Jaraeder Start: 75-39-5428Okofa panelLergavi ZamoraStart: 78-01-6248Cqvwq panelEricka Muniz Start: 04-16-7584PZATRFSHBLOV/Urine Creat RatioEdilberto ZamoraStart: 02-23-2018 Ericka MunizStart: 01-06-7035Cdduigg nutrition re-assmt&ivntj indiv ea 15 mChase TrudyStart: 59-72-6052Ncizodpx foot examinationLergavi ZamoraStart: 77-44-6686Did meds verified w/pt or reLeroy SeraStart: 12-13-2017 Documentation of current medicationsMark FoxStart: 61-21-4143Wwtqcjr function panelMark FoxStart: 26-38-6415Jkwnqgt function panelMark FoxStart: 12-09-2017 Diab manage trn per indivMark FoxStart: 00-89-5762Firrcstn self-monitoring health educationMark FoxStart: 69-28-3131Awkxqjt measurement, quantitativeMark FoxStart: 75-94-1498Xhhpzcn quantitative blood xcpt reagent stripEdilberto Zamora Start: 37-80-7409Sryarmtxsb A1c measurementMark FoxStart: 71-53-4469Zvkulqjnue glycosylated c0cIcfowEdilberto [facility] hospitalStart: 71-36-5047Okpu manage trn per indivEdilberto [facility] hospitalStart: 42-60-0291Pykormcu self-monitoring health educationSeattle Muniz Start: 28-63-6072Icicpss Medications Verified MIPSLergavi [facility] hospitalStart: 12-28-7202Zqwt FoxStart: 62-95-0788Dhokkek aminotransferase measurementMark Muniz Start: 05-87-2957Uydxrkvxh aminotransferase measurementMark [place]villeStart: 08-25-2017 Basic metabolic panel calcium totalLergavi [facility] hospitalStart: 03-47-4393Rvwxhovdxy A1c measurementMark [place]villeStart: 17-51-9811Ndfeutejpj glycosylated t0jNacob [facility] hospitalStart: 26-64-8643Lvpei panelLer Marekmarietta memorial hospitalStart: 16-92-5068Ttqpp panel Ericka FoxStart: 54-38-5929JWOQVQCSARTB/Urine Creat RatioLergavi [facility] hospitalStart: 68-74-7516Hmshxisrdvz alanine amino alt sgptLergavi [place]ersburgStart: 08-25-2017 Transferase aspartate amino ast sgotSage Memorial Hospitalgavi [facility] hospitalStart: 41-59-2114Vmsu Muniz Start: 87-39-4897Atta manage trn per indivEdilberto [facility] hospitalStart: 08-09-2017 Diabetes self-monitoring health educationMark FoxStart: 01-31-0354Bxnerkrp foot examinationLeroy Marekmarietta memorial hospitalStart: 01-22-6262Unwvjog measurement, quantitativeMark FoxStart: 04-50-3486Wzekgpt quantitative blood xcpt reagent stripLergavi [facility] hospitalStart: 55-67-1809Xwcaurlvjc A1c measurementMark FoxStart: 08-05-2017 Hemoglobin glycosylated k6nCfgtm [facility] hospitalStart: 78-03-9077LM-DipLeroy Zamora Start: 36-37-6610Tqtl FlavioStart: 57-43-6372Tgc meds verified w/pt or reLeroy Marekmari[facility] hospitalStart: 00-55-6925Ummjocgvdigtp of current medicationsMark FoxStart: 68-43-5165Vpwfbmw Medications Verified MIPSLeroy [facility] hospitalStart: 04-05-2017 Diabetic foot examinationLer Marekmarietta memorial hospitalStnorthville: 10-10-2695Igyb FoxStart: 90-03-7198Ijxnguk measurement, quantitativeMark [place]Start: 64-65-8086Yxmsjau quantitative blood xcpt reagent stripEdilberto [facility] hospitalStart: 39-22-5251Grccjpmznq A1c measurementMark FoxStart: 94-93-4034Bbrfyipqho glycosylated e5aCutvd Marekmari[facility] memorial hospitalStart: 39-69-7258ABELGZWMROQV/Urine Creat RatioLergavi [facility] hospitalStart: 45-95-1146Ofje FoxStart: 70-84-1364Qpc UA (for Ketones)Edilbertogavi [facility] hospitalStart: 35-22-3024Fbng [place]Start: 77-70-3122Vnl meds verified w/pt or reLeroy Sera Start: 24-36-1612Sezbgegetqpht of current medicationsMark [place]outvilleStart: 74-28-9836Al strs tst xers&/or rx cont ecg w/si&rLeroy [facility]arekm[facility] hospitalStart: 02-17-2017 Electrocardiogram with exercise testMark FoxStart: 04-38-6293Fpcdxglncx spect multiple studiesLer [facility]km[facility] hospitalStart: 12-46-2261Yxyksdtdhnm injectionLergavi [facility] hospitalStart: 86-15-5050Jz03u sestamibiLeroy Marekm[facility] memorial hospitalStart: 43-08-0591Plv meds verified w/pt or reLeroy [facility]km[facility] hospitalStart: 02-50-7750Kkfpfewlaylhs of current medicationsMark FoxStart: 74-11-1507Ole routine ecg w/least 12 lds w/i&rLeroy Marekm[facility] hospitalStart: 67-99-6144Lzmzooq measurement, quantitativeMark FoxStart: 34-24-6600Hnkbted quantitative blood xcpt reagent stripLergavi [facility] hospitalStart: 27-48-1289Lbufbrlnvo A1c measurementMark FoxStart: 51-09-0403Vkhvevalkh glycosylated e4fBikeq [facility] hospitalStart: 11-24-2718Upfnrbft foot examinationLer [facility]km[facility] hospitalStart: 24-57-6530Yel UA (for Ketones)Edilberto [facility] hospitalStart: 11-23-2016 Eircka FoxStart: 35-32-2833Dnuaejk aminotransferase measurementMark FoxStart: 03-81-6305Xufbmkqhi aminotransferase measurementMark FoxStart: 09-21-2016 End: 83-71-7852Qbnpt metabolic panel calcium totalLeroy MarekederStart: 44-22-2047Hwnhdhlamb A1c measurementMark FoxStart: 15-52-7462Imovlaapxa glycosylated z9mApman SchroederStart: 28-81-0202Zgvgw panelLeroy MarekederStart: 27-78-9873Bklne panelMark FoxStart: 84-45-4756Qwwpzncvrfa alanine amino alt sgptLergavi SchroederStart: 05-68-2627Ewefqumwcdk aspartate amino ast sgotLergavi SchroederStart: 62-73-8410Vehxd metabolic panel calcium ionizedLeroy Sera Start: 83-96-7969Wzbit chemistryMark FoxStart: 23-04-6998EWFVOWHLXGQI/Urine Creat RatioLergavi [facility] hospitalStart: 78-67-3243Pvou FoxStart: 70-14-9245Zrbcm brachial pressure indexMark FoxStart: 29-09-7452Uac-invas physiologic std extremity art 2 levelLeroy MarekederStart: 68-55-2518Ztzat brachial pressure indexMark FoxStart: 47-83-3188Ihcpcobd foot examinationLeroy SchroederStart: 32-89-1860Bui-invas physiologic std extremity art 2 levelLergavi SchroederStart: 26-48-3870Mnxtm of thyroid stimulating hormone tshLeroy MarekederStart: 40-61-6465Uaapa of thyroxine totalLeroy SchroederStart: 54-06-8953Ievps metabolic panel calcium totalLeroy SchroederStart: 69-34-5800Wzpeubaooy A1c measurementMark FoxStart: 72-12-0533Vgaptutilr glycosylated l9nVnatxgavi Zamora Start: 64-87-4579TLTGLWEPPIEN/Urine Creat RatioLergavi MarekederStart: 07-30-2016 Thyroid stimulating hormone measurementMark FoxStart: 16-78-2377Dbnzgyule measurementMark FoxStart: 65-03-1527Pgqm FoxStart: 91-87-5213Praas metabolic panel calcium ionizedLeroy MarekederStart: 06-22-7233Dkatj metabolic panel calcium totalLeroy SchroederStart: 95-20-3785Oewmp chemistryMark FoxStart: 15-27-2228Mbs UA (for Ketones)Edilberto MarekederStart: 61-64-7652Ljsj FoxStart: 94-83-8119Xudxxuix foot examinationLeroy SchroederStart: 08-32-0327Ixruirn aminotransferase measurementMark [place]Start: 60-01-4558Zatkjtemf aminotransferase measurementMark FoxStart: 66-50-1124Nfqzx metabolic panel calcium totalLeroy [place]burgStart: 97-01-0220Ftwiumnaqx A1c measurementVa Medical CenterStart: 03-20-2016 Hemoglobin glycosylated i5vMtkkj [place]Start: 39-01-3711Phium panelLerAspirus Iron River HospitalStart: 37-64-8162Tvprn panelMark [place]Start: 72-61-9599Ukunviszmbo alanine amino alt sgptLeroy [place]ersburgStart: 31-15-7942Hfopfvsjkvd aspartate amino ast sgotLergavi [place]burgStart: 28-02-7349Grygd metabolic panel calcium totalLerAspirus Iron River HospitalStart: 96-05-2000Lyilljc measurement, quantitativeVa Medical Center Start: 48-97-5485Iiydevmmzd A1c measurementVa Medical CenterStart: 65-79-4392Xaszjyjchi glycosylated f2eWtpzq [place]Start: 44-11-4831Lpmap of thyroid stimulating hormone tshLerAspirus Iron River HospitalStart: 04-81-6339Zlres of thyroxine totalLerAspirus Iron River HospitalStart: 26-05-9248Onvpcxq measurement, quantitativeMark FoxStart: 51-64-5357Avjludi quantitative blood xcpt reagent stripLeroy [place]burgStart: 58-28-2465Paqtaoargd A1c measurementVa Medical CenterStart: 45-28-7258Sbhvamcwjg glycosylated o8uPgpgwAspirus Iron River HospitalStart: 51-04-9003QUNPLTIDVVDY/Urine Creat Ratio Edilberto [facility] Hospitalart: 52-40-0522Rhyuosu stimulating hormone measurementVa [facility] Start: 03-34-8139Ncqrcuvqr measurementVa Medical CenterStart: 33-09-3477Hoce [place]villeStart: 11-18-2015 End: 46-21-0940Fgbtook analysis electroencephalogramLerAspirus Iron River HospitalStart: 44-97-9307Cxitkaeyndwvtsejoiogmfx procedureMark [place]villeStart: 35-36-3245Macilgid measurementVa Medical CenterStart: 72-09-8294Mahlkkwl totalLerMeadows Psychiatric Centerart: 49-95-0777Nvkhkhis foot examinationLerAspirus Iron River HospitalStart: 77-79-0274Szrxt metabolic panel calcium totalLerAspirus Iron River HospitalStart: 14-84-8865Wjwinxkjxh A1c measurementVa Medical CenterStart: 24-29-7161Ochnbgnrhz glycosylated a0mVxckxAspirus Iron River Hospital Start: 40-14-5159BYIDSJAHXKNI/Urine Creat RatioLerAspirus Iron River HospitalStart: 11-03-2015 Ericka FoxStart: 60-09-7141Jlaco of c-peptideLeroy [place]ersburgStart: 61-26-1039Webhe metabolic panel calcium totalLerAspirus Iron River HospitalStart: 76-81-4554Mskxdlup measurementMark [place]villeStart: 36-84-9747Xwofrfwm totalLerAspirus Iron River HospitalStart: 97-58-0988Hhnq manage trn per indivLeroy [place]burgStart: 24-28-6963Zecoctwu self-monitoring health educationMark FoxStart: 13-19-3786Xwehrhjz foot examinationLerAspirus Iron River HospitalStart: 92-65-0266Mwketwb measurement, quantitativeMark [place]Start: 38-40-5164Iedtxhp quantitative blood xcpt reagent stripLerAspirus Iron River HospitalStart: 37-96-8150Wesxnfm C-peptide measurementMark FoxStart: 09-29-2015 Medical nutrition assmt&ivntj indiv each 15 miLeroy [facility] hospitalStart: 09-29-2015 Therapeutic prophylactic/dx injection subq/imLeroy [place]burgStart: 09-24-2015 Unlisted pulmonary service/procedureLerAspirus Iron River HospitalStart: 72-02-5001Ynqujlbv spec ige crude allergen extract eachLerAspirus Iron River HospitalStart: 63-79-7750Ilwki of gammaglobulin igeLerAspirus Iron River HospitalStart: 66-54-9926Xtoeo count complete auto&auto difrntl wbcLerAspirus Iron River HospitalStart: 13-54-5734Eyoynkwb blood countMark FoxStart: 59-08-8326Bpjgtvwripj sedimentation rate, non-automatedMark FoxStart: 08-26-2015 Immunoglobulin E measurementMark [place]villeStart: 85-05-3168Hjbgdiizzbgoy rate rbc non-automatedLerAspirus Iron River HospitalStart: 53-34-2888Qhyiymhig ConsultLerAspirus Iron River Hospital Start: 36-81-1585Lpye FoxStart: 36-26-2536Po strs tst xers&/or rx cont ecg w/si&rLeroy [place]burgStart: 42-93-4703Odcexfahdjzbiuaul with exercise testMark FoxStart: 39-35-7532Yrhrhtldpu spect multiple studiesLeroy [facility] hospitalStart: 65-49-4975Etzuokvrzdy injectionLerAspirus Iron River HospitalStart: 81-65-9238Tr34x noah Casanova SchroederStart: 31-00-4044Jrtceyb aminotransferase measurementMark Flavio Start: 66-49-7231Myqobsuck aminotransferase measurementMark FoxStart: 08-04-2015 Basic metabolic panel calcium totalLergavi SchroederStart: 58-28-9853Krmxjgljso A1c measurementMark FoxStart: 95-14-8363Fqboymzreq glycosylated b6qJtgmw SchroederStart: 63-78-3651Eekni panelLergavi SchroederStart: 30-47-4513Peffb panel Ericka FoxStart: 64-90-6852CIXAQBPWSBWW/Urine Creat RatioLergavi SchroederStart: 72-80-8371Bhccgpcslzc alanine amino alt sgptEdilberto SchroederStart: 08-04-2015 Transferase aspartate amino ast sgotLergavi [facility] hospitalStart: 82-98-6502Hmqp Flavio Start: 81-03-0687Cdjta x-rayLergavi [facility] hospitalStart: 03-22-5098Zhf routine ecg w/least 12 lds w/i&rLeroy Sera Plan of Treatment DateCare ActivityDetailAuthorStart: 08-05-2025 End: 36-88-1873Cqysson encounter etyzucofq41/26/2026 2:30 PM EST Office Visit [facility] [address] [place] [address] Kimmie Yarbrough MD [address] [place] [address] [facility]Jose [facility]ocrinologyStart: 59-92-8556Gvstj of prostate specific antigen totalPSA [email or web address] [facility] Start: 27-33-4594Wiljn of testosterone freeTotal and free testosterone panel by equilibrium [email or web address] [facility] Start: 12-31-7691Gmvxe of testosterone totalTotal and free testosterone panel by equilibrium dialysisGood Samaritan Hospital [employer] Start: 45-52-4581Zqkdpqglbbkso metabolic panelCMP [place] [employer] [facility] Start: 57-81-7754Kxxiimdzkw glycosylated a1cHgb A1c [facility] legalPAD [facility] Start: 78-78-7267Vxrxq panelLipid panelCleveland Clinic [facility] Start: 04-08-2025 End: 79-94-2298Ruhqrvi encounter zwzaqueao98/29/2025 2:10 PM EDT Office Visit [facility] [address] [place] [id number] Kimmie Yarbrough MD [address] [place] [address] ArrivedAMARAMS Otto EndocrinologyComment on above:ArrivedStart: 04-08-2025 End: 23-80-9521Nsogw metabolic 1998 panel - Serum or PlasmaBasic metabolic panel 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 Expected: 04/08/2025 (Approximate), Ex ana m: 04/08/2026NO[facility] HealthcareComment on above:Expected: 04/08/2025 (Approximate), Expires: 04/08/2026Start: 04-08-2025 End: 74-72-6050Lpwrnuol [Mass/volume] in Serum or PlasmaFerritin 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 Expected: 04/08/2025 (Approximate), Expires: 2025NOOR HealthcareComment on above:Expected: 04/08/2025 (Approximate), Expires: 04/08/2026Start: 04-08-2025 End: 87-58-2445Bcaunmynqi [Mass/volume] in BloodHemoglobin 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 Expected: 04/08/2025 (Approximate), Expires: 04/08/2026NOOR HealthcareComment on above:Expected: 04/08/2025 (Approximate), Expires: 04/08/2026Start: 04-08-2025 End: 45-51-5674QggblfnkzNassesojj 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 Expected: 04/08/2025 (Approximate), Expires: 04/08/2026NO[facility] HealthcareComment on above:Expected: 04/08/2025 (Approximate), Expires: 04/08/2026Start: 04-08-2025 End: 26-13-1239Erldchmt specific Ag [Mass/volume] in Serum or PlasmaPSA 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 Expected: 04/08/2025 (Approximate), Expires: 04/08/2026[facility] Work Phone: Comment on above:Expected: 04/08/2025 (Approximate), Expires: 04/08/2026Start: 04-08-2025 End: 29-63-7712Jmq hormone binding globulinSex hormone binding globulin 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 Expected: 04/08/2025 (Approximate), Expires: 04/08/2026[facility] HealthcareComment on above:Expected: 04/08/2025 (Approximate), Expires: 04/08/2026Start: 04-08-2025 End: 04-57-8209Witbjbugghgb [Mass/volume] in Serum or PlasmaTestosterone 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 Expected: 04/08/2025 (Approximate), Expires: 04/08/2026NO[facility] HealthcareComment on above:Expected: 04/08/2025 (Approximate), Expires: 04/08/2026Start: 56-09-9568Mfrqlztbb vaccinationInfluenza Vaccine (#1) [facility] HealthcareStart: 18-63-8412Klbkvawmwgaxl metabolic panelCMPBKettering Health Behavioral Medical Center [employer] Start: 61-59-6010Bptfueqbfu glycosylated a1cHgb A1c [place] [employer] [facility] Start: 45-98-3150Vbqsa panelLipid panelGood Samaritan Hospital [facility] Start: 47-23-4597Dxyyncnqukige metabolic panelComp [place] [employer] [facility] Start: 87-88-6247Sckxvpjizf glycosylated a1cA1c [place] [employer] [facility] Start: 60-58-5361Crxuo panelLipid panelS[place] [employer] [facility] Start: 50-03-8936Yowwi of thyroid stimulating hormone tshTSHBlanBerger Hospital [facility] Start: 54-86-1185Tuwqijevoxylr metabolic panelGood Samaritan Hospital [facility] Start: 86-75-6429Jsgartivxmtquu vitamin b-12B12 level [place] [employer] [facility] Start: 36-84-2766Fnjlrynneq glycosylated h3zRwgkpdajf [employer] [facility] Start: 69-68-9092Vieen panelLipid profileS[place] [employer] [facility] Start: 94-13-2452Bwanxzpggg glycosylated a1cA1c [place] [employer] [facility] Start: 87-99-9139Ioglp of prostate specific antigen totalPSA [email or web address] [facility] Start: 36-58-3299Uwiac count complete automatedCBC PLATELET COUNT; [email or web address] [facility] Start: 89-58-5396Xayeilfdalmbp metabolic panelCMP [place] [employer] [facility] Start: 48-75-7116Rkmeg panelLipid [email or web address] [facility] Start: 90-93-1568Prtzrduhvjqns metabolic panelCMP (comprehensive metabolic panel)[employer] [facility] Start: 62-21-5966Agiqwqvlhq glycosylated t9zDKYPBBKQPD [email or web address] [facility] Start: 85-33-6188Jyodo panelLipid [email or web address] [facility] Start: 35-96-6863Czomwvjhe vaccinationInfluenza Vaccine (#1)[facility] HealthcareStart: 07-69-5700Sornp of prostate specific antigen total PSA, [email or web address] [facility] Start: 45-18-2592Mnzhs count complete automatedCBC PLATELET COUNT; [email or web address] [facility] Start: 70-83-1017Orascutepoxfl metabolic panelCMP [place] [employer] [facility] start: 11-85-7056Wykiivz quantitative blood xcpt reagent stripGLUCOSESandy [place] [employer] [facility] Start: 65-88-1843Eqatfnfzhc glycosylated g2vJPSPKPCLPV G8ENmjdccrqh [employer] [facility] Start: 36-02-4392Tjqzj panelLipid profileS[place] [employer] [facility] Start: 38-78-7450Cdnpeyritlm alanine amino alt sgptSGPT (ALT)[place] [employer] [facility] Start: hydroxy includes fractions if performedVITAMIN D 25-[email or web address] [facility] Start: 09-26-4002Yptyx of parathormonePTH-INTACT [place] [employer] [facility] Start: 53-72-9404Atbuoailqjgnq metabolic panelCMP (comprehensive metabolic panel)[place] [employer] [facility] start: 82-52-1465Xorvfkezil glycosylated o7oLPUGYAPWMS [email or web address] [facility] Start: 66-97-6236Zeyxw panelLipid [email or web address] [facility] Start: 08-71-7019Y-ray of left ankleANKLE COMPLETE X- RAY 3 [email or web address] [facility] Start: 15-81-3837MC Foot - right WO and W contrast IV [facility]ertart: 42-36-7314MFF of right foot with contrastMR foot RT wo/w [facility] Centertart: 35-13-3727VI Ankle - right WO and W contrast IVFswedish medical center issaqu[facility] CenterStart: 93-27-0857RFB of right ankle with contrastMR ankle RT wo/w [facility] Centertart: 01-67-8970Ybrrs of lactateLactic acid serumS[place] [employer] [facility] Start: 14-53-3545Pinxv count complete auto&auto difrntl wbcCBC w [email or web address] [facility] Start: 47-20-8482P-reactive proteinCRPBlanloma linda university [facility] [employer] [facility] Start: 59-43-3442Vsoqfbehjkzqh metabolic panelCMP [facility] [facility] Start: 57-75-7730LCY of lower extremityMRI ankle and [email or web address] [facility] Start: 65-61-2676Gfbiqbttrgehm rate rbc non-automated ESR non-[email or web address] [facility] Start: 03-17-6649Ngqzcw scan of lower limb veinsUS venous duplex LE RTAdena Regional Medical Centertart: 37-48-7805DV Lower extremity vein - rightMagruder Memorial Hospital Work Phone: Start: 62-26-5957R-ray of left ankleANKLE COMPLETE X- RAY 3 [email or web address] [facility] Start: 98-09-4750W-ray of left footFOOT COMPLETE X-RAY 3 [email or web address] [facility] Start: 61-90-7086Pjvop of prostate specific antigen totalPSA [email or web address] [facility] Start: 06-32-3648Lrfcyplmgmjar metabolic panelComp [facility] [facility] Start: 64-81-0455Rtquabieig glycosylated a1cA1c [facility] Start: 63-29-9323Fthlz panelLipid panelLimestoneBlued Start: 52-47-0402Bhccq of glutamyltrase gammaGAMMA GT [employer] Start: 62-62-3425Fnfih count complete automatedCBC PLATELET COUNT; AUTOMATEDLimestoneBlued Start: 10-21-4787Ughegvcigqjpq metabolic panelCMP (comprehensive metabolic panel)[employer] Start: 83-26-9795Hdupgobmof glycosylated d0oHWJKGOXDDL R2KBttejvlaeBlued Start: 24-52-7854Xgc bact xcpt urine blood/stool aerobic isolWound culture and sensitivityLimestoneBlued Start: 71-43-9634Jbg-scan lxtr art/artl bpgs uni/lmtd studyABI w/ segmental pressures and waveformsLimestoneBlued Start: 78-55-5956Gsa-invas physiologic std extremity art 2 levelABI w/ segmental pressures and waveformsLimestoneBlued Start: 56-63-6289Pzn-invasive physiologic study extremity 3 levlsABI w/ segmental pressures and waveformsLimestoneBlued Start: 64-70-7645Ikske X-ray of toeTOES X-RAY 2-3 VIEWS [facility] Start: 19-05-8991Qgaei count complete automatedCBC & PLATELET COUNT; CircuitLabLimestoneBlued Start: 54-59-1310Pnvznnotgatwk metabolic panelCMP (comprehensive metabolic panel)[facility] Start: 35-87-1654Gumyxgypgz glycosylated a1cA1c [employer] Start: 99-12-6268Cbxbz panelLIPID PROFILEGood Samaritan Hospital legalPAD [facility] Start: 61-21-7258Xhtfx of glutamyltrase gammaGAMMA GT [facility] legalPAD [facility] Start: 25-26-8631Lumbc metabolic panel calcium total Chem 8BProMedica Memorial [facility] Start: 40-64-0105Gerwpeltkn glycosylated c0wOZBJYOWAND E6BRdrzhjmxqGood Samaritan Hospital legalPAD [facility] Start: 89-80-3460Ljklg count complete automatedCBC PLATELET COUNT; AUTOMATEDGood Samaritan Hospital legalPAD [facility] Start: 85-72-9466Nafzxggntbtme metabolic panelComp [facility] legalPAD [facility] Start: 92-66-2855Ovqcndkuhg glycosylated a1cA1c [facility] [employer] [facility] Start: 22-50-0171Aslyi panelLipid panelGood Samaritan Hospital legalPAD [facility] Start: 35-30-6761Gzamr of parathormonePTH-INTACT [facility] [facility] Start: 97-45-2295Icdeq of phosphorus inorganic Phosphorus, serumGood Samaritan Hospital legalPAD [facility] Start: 80-69-1622Dtgek count complete automatedCBC PLATELET COUNT; AUTOMATEDGood Samaritan Hospital [facility] Start: 81-91-9463Kemmdggwxbbhy metabolic panelCMP (comprehensive metabolic panel)[place] [employer] [facility] Start: 66-30-2044LiH3a (Bld) [Mass fraction]HEMOGLOBIN V9XIpqhghwvtGood Samaritan Hospital legalPAD [facility] Start: 99-47-5435Nloxavneaz glycosylated m5jJDNWQWGHDN Y3JMnjrqwxseGood Samaritan Hospital legalPAD [facility] Start: 21-09-9466Rkqhtjqone measurementCreatinUtah Valley Hospital, KYStart: 57-63-7509Iwifocabx monitoringPotassium [facility], MAStart: 50-73-2705Vises of prostate specific antigen totalPSA totalS[place] [employer] [facility] Start: 38-75-7983Cwxdypcchccig metabolic panelCMP (comprehensive metabolic panel)[employer] start: 30-15-6150WoP4t (Bld) [Mass fraction]HEMOGLOBIN B5WMmqappzskBlued Start: 78-18-1626Ckodsnb quantitative blood xcpt reagent stripGLUCOSE 2 HR Post PrandialLimestoneBlued start: 52-75-0357UyR1p (Bld) [Mass fraction]HEMOGLOBIN J9KPijdfsqfgBlued start: 42-74-8144Jtvvzta function panelLFT (liver function test)[facility] Start: 58-05-1644Wjynlr Wellness Visit (AWV)Annual Wellness Visit (AWV)[facility] MAStart: 80-01-7643Bsarlvabs vaccination [facility]: 12-28-2019 End: 94-14-9052Wqwbjnzh EncounterMTHZ ORComment on above:SHOULDER ARTHROSCOPY ROTATOR CUFF REPAIR, POSSIBLE BICEPS TENDONDESISStart: 12-28-2019 End: 65-84-5246Ybufvcdp EncounterMTHZ ORComment on above:SHOULDER ARTHROSCOPY ROTATOR CUFF REPAIR, POSSIBLE BICEPS TENDONDESISStart: 32-86-5198Rasor metabolic panel calcium totalChem 8[facility] [employer] [facility] Start: 96-62-0732NrI3h (Bld) [Mass fraction]HEMOGLOBIN I3GNvjxjyuwfBlued Start: 99-12-2992Ezsiiwxhrjqpy metabolic panelComp [employer] start: 62-77-8116UmY2j (Bld) [Mass fraction]A1c [employer] Start: 09-44-4773Aycjh panelLipid panelLimestoneBlued Start: 49-78-2782Oteut metabolic panel calcium total Chem [facility] [place] start: 94-34-6130Fymic metabolic panel calcium total Chem [facility] [employer] [place] [employer] [facility] Start: 19-61-1745Njyho glutamyl transferase [Catalytic activity/Vol]GGTLimestoneBlued Start: 29-96-2343WiB4a (Bld) [Mass fraction]HEMOGLOBIN H0YEyvpgxnafBlued Start: 87-68-0801Xhysz of prostate specific antigen totalPSA totalLimestoneBlued Start: 94-76-2395Jmcpa count complete automatedCBC & PLATELET COUNT; AUTOMATEDLimestoneTheVegibox.com [facility] Start: 86-42-0223Gywsqvpacqeqo metabolic panel Comprehensive metabolic panelLimestoneBlued Start: 64-38-2495Ykmcp panelLipid panelLimestoneTheVegibox.com [facility] start: 01-12-4175Dupog dip stick/tablet rgnt auto w/o microscopyUrinalysis autoLimestoneTheVegibox.com [facility] Start: 84-81-8983Bo adm prq id subq/im njxs 1 vaccine Administration of single vaccineLimestoneBlued Start: 98-59-7060Bnula of glutamyltrase gammaGAMMA GT [employer] Start: 16-02-4731Mwwjzvhedwkdm metabolic panelCMP (comprehensive metabolic panel)[employer] start: 58-12-2663Pmjvipzcrt A1c/Hemoglobin.total mass fraction (Bld)HEMOGLOBIN X9CKcjsaycvtBlued start: 44-81-9773Pkcwu of prostate specific antigen totalPSA totalLimestoneBlued start: 83-70-9184Klkwr count complete automatedCBC & PLATELET COUNT; AUTOMATEDLimestoneBlued start: 16-46-7181Fzxueinfvipow metabolic panel Comprehensive metabolic panelSandy [place] start: 70-64-8090Ngemlslpth A1c/Hemoglobin.total mass fraction (Bld)Hgb S9jAwjccgzpdBlued start: 03-60-5946Setey panelLipid panelLimestoneBlued start: 30-54-4756Dqeeofr nutrition re-assmt&ivntj indiv ea 15 mMedical nutrition therapy; re-assessment and intervention, individual, bmaa-rc-ngkx with the patient, each 15 minutesLimestoneBlued start: 65-60-1560Rvttdbz nutrition re-assmt&ivntj indiv ea 15 mMedical nutrition therapy; re-assessment and intervention, individual, awzp-cz-jflp with the patient, each 15 minutesLimestoneBlued start: 06-02-1934Einoejh mass concGLUCOSELimestoneBlued start: 06-21-5791Ibvjgokqml A1c/Hemoglobin.total mass fraction (Bld)HEMOGLOBIN F5VHwjuaqywqBlued start: 98-15-1485Hernvhr function panelLiver function panelLimestoneBlued start: 22-74-0684Bricqne nutrition re-assmt&ivntj indiv ea 15 mMedical nutrition therapy; re-assessment and intervention, individual, ofdl-cb-apxj with the patient, each 15 minutesLimestoneBlued start: 43-20-5293Zkewtds nutrition re-assmt&ivntj indiv ea 15 mMedical nutrition therapy; re-assessment and intervention, individual, qzgz-vm-lbgi with the patient, each [facility] Start: 01-84-2540Agpxqst mass concGLUCOSECleveland Clinic Avon Hospital start: 59-52-6673Gmyqdmginw A1c/Hemoglobin.total mass fraction (Bld)HEMOGLOBIN V2GSnzfpcfrrCleveland Clinic [facility] Hospital Start: 83-17-5702Wyyeuzw nutrition re-assmt&ivntj indiv ea 15 mMedical nutrition therapy; re-assessment and intervention, individual, brpu-wr-pkfg with the patient, each 15 minutesC[facility] Start: 42-43-3634Dzndcig function panelLiver function panelCleveland Clinic Avon Hospital Start: 41-19-8339Jmjbjyxov for malignant neoplasm of colonColon cancer screen colonoscopyLong[place], [place]: 2014 Shingles Vaccine (1 of 2)Shingles Vaccine (1 of 2)[facility]: 42-87-2369Hkzuylcy screenDiabetes [place], [place]: 11-11[place]1983 DTaP/Tdap/Td vaccine (1 - Tdap)DTaP/Tdap/Td vaccine (1 - Tdap)[facility]: 26-59-3707Uugvo screening for proteinDiabetes: Urine Protein Screening [facility] HealthcareStart: 08-92-8536EHM screeningHIV [place], [place] Start: 34-59-4273Jewhiwfk screeningDiabetes: Retinopathy ScreeningNOMS HealthcareStart: 74-28-5633Rrwur panelLipid [facility] Hospitalart: 19-71-9382Astbdnslpflo 0-64 years Vaccine (1 of 1 - PPSV23)Pneumococcal 0-64 years Vaccine (1 of 1 - PPSV23)[facility]: 46-97-5516Bumbdsctob measurementCreatinine monitoringOhioHealth Doctors Hospital, [place]Start: 53-13-1397Tslosqvrtk A1c measurementDiabetes: Hemoglobin O1MBTPH HealthcareStart: 38-40-6189Qxzxsllsi C screeningHepatitis C screenOhioHealth Doctors Hospital, [place]Start: 05-03-1965Medicare Annual Wellness (AWV)Medicare Annual Wellness (AWV)[facility] HealthcareStart: 16-47-5272Zyecnsecw monitoringPotassium monitoringOhioHealth Doctors Hospital, KYStart: 71-59-6671Ssiikkzok for malignant neoplasm of colonNOOR HealthcareInitiate Oxygen Therapy ProtocolInitiate Oxygen Therapy Protocol Respiratory Care Routine Daily until discontinued starting 12/28/2019[facility], KYComment on above:Daily until discontinued starting 12/28/2019Patient EducationC[facility]innati [facility] Work Phone: Patient referralCincinnati Children'S [facility] Work Phone: Phase I & II - metered glucosePhase I & II - metered glucose Point of Care Testing Routine As Needed until discontinued starting 12/28/2019[facility], KYComment on above:As Needed until discontinued starting 12/28/2019[facility] AND [facility]ITYDoctors Hospital Baby Blendy [facility] Immunizations Immunization DateImmunizationNotesCare SpfzxikcBfidyoiw27-33-6024AXRSV-98, Moderna, 100mcg/0.5mlWendi [facility] [id number] A and hepatitis B vaccineWendi [facility] 1731386-64-1829ysohwtk, mumps and rubella virus vaccineWendi [facility] 1743599-76-9452Veanvjpm trivalent influenza vaccine, adjuvanted, preservative freeWendi [facility] Baby Blendy [facility] [id number] virus vaccine, unspecified formulationKimmie Yarbrough MD Work Phone: [phone] Quinn StreetCrkoxcqexy22-06-2006NEQKI-64, Moderna, 100mcg/0.5mlMark [facility] 01-884809-91-2801PBL24Wsnb [facility] 19-83823484-98-5333DOSXK-92, Pfizer, 30mcg/0.3mlLeroy [facility] 1427455-41-6269fwhijjgud, injectable, quadrivalent, contains preservativeLerChillicothe VA Medical Center [id number] virus vaccine, unspecified formulationShay Patterson DO Work Phone: [facility] HospitalRuyzxciuyl71-81-5981udmiynpiz A and hepatitis B vaccineJeremy [facility] [id number] B vaccine, adult dosageJepremier health atrium medical centery [facility] 04-358437-83-1458aylehx vaccine, liveJeremy [facility] 12830996-69-7003FHWAF-60, Moderna, 100mcg/0.5mlLeroy [facility] 04-951769-97-6098UTPVR-56, Moderna, 100mcg/0.5mlLeroy [facility] [id number]-46, Moderna, 100mcg/0.5mlLeroy [facility] 09-909156-55-4516prjgxjoyq virus vaccine, unspecified formulation; Translations: [Administration of influenza virus vaccine][facility] 15-40305757-23-7246vckwjsscw, high dose seasonal, preservative- free; Translations: [FLU VACC PRSV FREE INC ANTIG]Edilberto [facility] [id number], injectable, quadrivalent, contains preservative; Translations: [FLU VACC 4 FRANCISCO 3 YRS PLUS IM]Edilberto Zamora [facility] [id number], seasonal, injectableGucciChillicothe VA Medical Center 1989320-40-4828WGQXFASEVOKH ADMIN; Translations: [IMMUNIZATION ADMIN][facility] 1766956-25-3529Hvzj MusclePharmGood [facility]aritan Hospital [facility]Bridge [facility] 1586303-80-6409iirbalbjc, seasonal, injectable; Translations: [FLU VACCINE 3 YRS & > IM]EdilbertoFive ApesJamestown Regional Medical CenterVestagen Technical Textiles [place] [facility] 1579450-53-0126GFTXDGSKKRWY ADMIN; Translations: [IMMUNIZATION ADMIN]EdilbertoNuScale PowerLimestoneVestagen Technical Textiles [place] [facility] 1817633-52-9804Ymgq MusclePharmLimestoneTheVegibox.com [facility] 09-400635-27-5344gkhhzvlgx, seasonal, injectable; Translations: [FLU VACCINE 3 YRS & > IM]Edilberto StroodleJamestown Regional Medical CenterVestagen Technical Textiles [place] [facility] 09-922745-65-2117XUHKUOUCILQC ADMIN; Translations: [IMMUNIZATION ADMIN]EdilbertoNuScale PowerLimestoneTheVegibox.com [facility] 09229641-65-1166Tpsv MusclePharmLimestoneTheVegibox.com [facility] 09043447-60-0714uifkjzybn, seasonal, injectable; Translations: [FLU VACCINE 3 YRS & > IM]EdilbertoNuScale PowerLimestoneTheVegibox.com [facility] 09-569987-01-1388JHQYXOQYRLPZ ADMIN; Translations: [IMMUNIZATION ADMIN]EdilbertoNuScale PowerLimestoneTheVegibox.com [facility] 09-427913-78-7584Bvvb Noise Freaksnorth central bronx hospitalBlued Payers DatePayer CategoryPayerPolicy [id number] [id number] 2021MedicareANTHEM MEDICARE ADVANTAGE [facility] MEDIC[facility] ADV[facility]AGE [id number] 2020- [address] [place] [id number] 2021Medicare (Managed Care)ANTH MEDICARE ADVANTAGE [id number] [id number] 1.2.840.548143.1.13.239.2.7.3.295[id number] 2.840.1.239006.3.49645-98-7240MgtsqlrKANIQGLCYW [employer] [place] MEDICAID xxxxxxxxxxx 2015- [phone] CLAIMS DEPARTMENT [address] [place], [place] [address]rkjuajxrirj [id number]71937.58724-02-8326Etqvszy LUI87[id number] 08.26.830.1.612695.3.579.2.16699-79-5996 [id number] 08.26.830.1.171752.3.57[id number] 2.16.840.1.304407.3.57[id number] 2.16.840.1.898866.3.57[id number] 2.16840.1.157117.3.57[id number] 2.16840.1.750140.3.57[id number] 2.16840.1.063180.3.57[id number] 2.840.1.053568.3.57[id number] 2.0.1.967825.3.57[id number] 2.16840.1.760268.3.57[id number] 2..1.457349.3.57[id number] 2.840.1.070122.3.57[id number] 2.0.1.019505.3.57[id number] 2.840.1.252779.3.57[id number] 2.16840.1.963804.3.579.2.1259 [id number] 2.840.1.78478[id number] 2.16840.1.059414.3.441 UnknownAnthem /[id number] [id number] 2.16.840.1.5[id number] 2.16.840.1.839[id number] 2.16.840.1.057100.3.579.2.531 Social History DateTypeDetailFacilityStart: 25-97-3621IkxigdnerEssence Group Holdings Start: -2 cups a dayEssence Group Holdings Start: 12-18-2019 End: 54-04-0073Nhhubkn smoking status NHISCurrent every day smokerOhioHealth Doctors Hospital, MAHistory of tobacco useCigarette SmokerOhioHealth Doctors Hospital, MAStart: 12-18-2019 End: 54-06-9980Pkbgqfhllu smoked current (pack per day) - ReportedOhioHealth Doctors Hospital, MAStart: 12-18-2019 End: 79-20-0645Kcqylhl intakeCurrent drinker of alcohol (finding)[facility], [place]Start: 68-94-4261Ffvqtdg Jmcrmmd8B WEEKLYOhioHealth Doctors Hospital, KYStart: 70-57-3541Zwe Assigned At BirthNot on fileOhioHealth Doctors Hospital, KYExposure to SARS-CoV-2 (event)Unable to assessOhioHealth Doctors Hospital, MAStart: 53-75-4912Hjudrrw use and exposureNever usedOhioHealth Doctors Hospital, MAExposure to SARS-CoV-2 (event)[place] sureLong[place], KYStart: *TobaccoEssence Group Holdings Start: 04-01-2022 End: 60-80-1340Iyeesct smoking status NHISSmoker (finding)[facility] Centertart: 02-25-7785Exm Assigned At [facility] Medical CenterTobacco smoking statusNo Smoking Status EnteredHarrison Community Hospitaltart: 12-27-2022 End: 64-98-5241Qhq Assigned At [facility] Hospitaltart: 54-90-3087Sxsbzeg Trtdgcp93-61 cigs a dayNOOR HealthcareStart: 19-93-2913Wyiamtx Comment3-4 drinks 4+ times a week. Caffine intake: 2-3 cups per dayINTERMOUNTAIN MEDICAL CENTER HealthcareStart: /2 saint mark's medical centerEssence Group Holdings Start: or 4 per [employer] Start: -3 cups a dayEssence Group Holdings Start: /4 [employer] Start: -2 per [employer] Start: 07-20-2024 End: 35-16-1362ZwzYgbw (finding)[facility] Medical Equipment Procedure CodeEquipment CodeEquipment Original TextEquipment IdentifierDates [place] Sut Corkscrew [employer] [id number]: 10-25-9969Uaxkvc Suture Swivelock 4.75x19.1 [employer]ocomposite Min [id number]: 25-22-0011Aytygg Endoscopic Bicep [id number]_impStart: 12-28-2019 Clinical Notes 04-14-2022 to 04-08-2025 Note Date & UgytJzkmRffykukg42-15-1441 History of Present illness Narrative* Kimmie Yarbrough MD - 04/08/2025 2:10 PM EDT Geremias Melchor is a 59 y.o. male No ref. provider found presents with chief complaint of Testicular Hypofunction HPI: 03/2025 History of Present Illness The patient is a new patient who presents for evaluation of testosterone treatment. He has never undergone opioid or steroid treatment and has no history of prostate cancer, clots, oruse of anticoagulation medication. No testosterone lab done [...] Surgical History: Procedure Laterality Date HERNIA REPAIR 2017 SHOULDER SURGERY 2019 REVIEW OF SYMPTOMS: 14 [...] 4 months (around 08/08/2025). documented in this encounterCedar County Memorial HospitalZubyxuqxjs69-35-4283 [facility] [place] [address] [place], [place] [address] Pulmonary Function Signed Patient: Geremias Melchor MR#: [id number] : 1965 Date of Service:0 07/19/24 Age/Sex: 58 / M ADM Date: 5 Loc: RT Room: Type: [facility] Attending Dr: Ayanna Brooks TRACTOR TRAILER TECHNICIAN-C Copies to: MD Ericka Albert MD, TRACTOR TRAILER TECHNICIAN-C~ Pulmonary Function Test Complete pulmonary function studies were performed on July 19, 2024 for patient with diagnosis ofdyspnea, hypertension, left ventricular hypertrophy. Spirometry was acceptable and reproducible with adequate durations of exhalation. Please refer to the pulmonary function test report for the raw data. SPIROMETRY: Spirometry was performed with bronchodilator studies and reveals an FEV1 to FVC ratio of 74% with an FEV1 of 3.43 liters (91% predicted) and a forced vital capacity of 4.61 liters (93% predicted). LUNG VOLUMES: Measurement of static lung volumes was performed by plethysmography and indicates a total lung capacity of 6.96 liters (95% predicted) with a residual volume which was 97% of predicted and a residual volume to total lung capacity ratio of 34%. DIFFUSION CAPACITY: Single breath diffusion capacity is 22.5 mL/mmHg/min (77% predicted) and is 99%predicted after adjustment for alveolar volume. SUMMARY: These pulmonary function studies do not clearly indicate evidence of obstruction nor is there evidence of a significant bronchodilator response. There is no clear evidence of restriction or air trapping. Diffusion capacity is mildly reduced but normalizes when adjusted for alveolar volume which could suggest some component of ventilation/perfusion mismatching. There are no recent studiesavailable for comparison. Clinical correlation is recommended. Transcribed By: AIDA 07/19/241752 Dictated By: Carlos Ware MD 07/19/241752 Signed By: 07/19/241753 [facility]05-25-2024 Hospital Discharge instructions Additional Instructions Sutures out in 7 to 10 daysMagruder [facility] Hospital Work Phone: [phone] Telephone encounter Note* Telephone Encounter - Shon Esa - 08/09/2023 9:21 AM EST Patient called stating he fell in the bathroom and has a Q-tip jammed in his ear that will not comeout. Per Kaur patient needs to come to [place] today at 2:30 PM. Patient states he has another appointment and does not think that will work for him. He states he will be calling his other doctor to coordinate. [facility] HospitalTxyrdotfji37-21-9190 Miscellaneous Notes* Telephone Encounter - Shon Esa - 08/09/2023 9:21 AM EST Patient called stating he fell in the bathroom and has a Q-tip jammed in his ear that will not comeout. Per Kaur patient needs to come to [place] today at 2:30 PM. Patient states he has another appointment and does not think that will work for him. He states he will be calling his other doctor to coordinate. documented in this encounterCedar County Memorial HospitalBmizrurhrp38-39-0434 NotePROCEDURE: XR ANKLE RT MIN 3 VIEWS, XR [...] Electronically authenticated by: SASHA FLAHERTY Date: 2022-07-28 16:42[facility]01-18-2023 NotePROCEDURE: XR ANKLE RT MIN 3 VIEWS, XR [...] Electronically authenticated by: SASHA FLAHERTY Date: 2022-07-28 16:42[facility]12-15-2022 NotePROCEDURE: XR ANKLE RT MIN 3 VIEWS, XR [...] Electronically authenticated by: TESS JHAVERI Date: 2022-06-24 06:[facility]12-15-2022 NotePROCEDURE: XR ANKLE RT MIN 3 VIEWS, XR [...] Electronically authenticated by: TESS JHAVERI Date: 2022-06-24 06:[facility]10-26-2022 Progress note Author Fariha Novak [facility] May 05, 2022 2:50pmNote Date/TimeOct2021 2:50pmRingoes[place] [address] Wound Center Provider Note Signed Patient: Geremias Melchor MR#: [id number] : 1965 Acct:[id number] Age/Sex: 56 / M Copies to: NON STAFF Fariha Novak APRN~ HPI Date of Visit Date of Visit: Date of Service: 05/05/2022 Time of Service: 14:47 Narrative HPI: 04/14/22 Geremias is a 56-year-old male presenting to [facility] wound care program for an initial visit for evaluation and treatment of thermal burn wounds to his bilateral feet that are d/t his diabetic neuropathy. He believes that these began sometime in March and says something about the concretebeing too hot. Geremias is diabetic, possibly for over 20 years he says, and he does have neuropathy and has no sensation in the lower legs. Geremias was taught the dressings of the Vashe Cleanser and collagen silver and he was provided with a list of lotions to help with callus and fissures on his feet. He is not per se happy with his bag loader in [place] and therefore I did give him the name of a local bag loader who could address his concerns with Charcot foot in the right foot as well as other podiatric concerns. Healing will depend greatly on his diabetic control, he tells me his A1c is approximately 6.4 or 6.5, offloading these areas, having a nutritious diet that is higher in protein and amino acids and low in inflammation, having adequate arterial blood flow, quitting or reducing tobaccousage, as well as controlling and treating any infections that may arise. I do not see any signs ofinfection today. 05/04/22 3 of the 4 ulcers [...] wound start?: March 2022 Mode of Arrival/ County Commissioner: Personal vehicle Lives with:: Alone Appetite Description: Within Normal Limits Who helps w/ dressing change?: Self Smoking Status: Current every day smoker [facility] Vaccinated for COVID-19?: Yes Medical History (Updated 05/05/22 @ 14:49 by Fariha Novak APRN) Diabetes Hyperlipidemia Hypertension Neuropathy Surgical History H/O hernia repair Family History (Updated 04/14/22 @ 14:36 by Jennifer Hitchcock, RN) Family/Other Diabetes Social History Smoking Status: [...] pen (Lantus Solostar U-100 Insulin) 25 unit subcutQAM 04/14/22 [History Confirmed 04/14/22] insulin lispro 100 [...] Appearance: Beefy Red, Epithelial Tissue or Bridge, [place] and Yellow Percent of Wound Bed Granulated/Red: [...] toe rt heel lt 2nd toe thermal graham but d/t diabetic neuropathy Qualifiers: Diabetes mellitus [...] 15 Dictated By: Fariha Novak APRN DD/ 144 Signed By: <Electronically signed by RADHA Novak> 05/05/22 1450 [facility] Work Phone: [phone]) 310-569910-05-2022 Progress note Author Fariha Novak [facility] April 14, 2022 2:46pmNote Date/TimeOct2021 2:46pmRingoes[place] [address] Wound Center Provider Note Signed Patient: Geremias Melchor MR#: [id number] : 1965 Acct:[id number] Age/Sex: 56 / M Copies to: NON STAFF Fariha Novak APRN~ HPI Date of Visit Date of Visit: Date of Service: 04/14/2022 Time of Service: 14:37 Narrative HPI: 04/14/22 Geremias is a 56-year-old male presenting to [facility] wound care program for an initial visit for evaluation and treatment of thermal burn wounds to his bilateral feet that are d/t his diabetic neuropathy. He believes that these began sometime in March and says something about the concretebeing too hot. Geremias is diabetic, possibly for over 20 years he says, and he does have neuropathy and has no sensation in the lower legs. Geremias was taught the dressings of the Vashe Cleanser and collagen silver and he was provided with a list of lotions to help with callus and fissures on his feet. He is not per se happy with his bag loader in [place] and therefore I did give him the name of a local bag loader who could address his concerns with Charcot foot in the right foot as well as other podiatric concerns. Healing will depend greatly on his diabetic control, he tells me his A1c is approximately 6.4 or 6.5, offloading these areas, having a nutritious diet that is higher in protein and amino acids and low in inflammation, having adequate arterial blood flow, quitting or reducing tobaccousage, as well as controlling and treating any infections that may arise. I do not see any signs ofinfection today. Subjective Pain Left Foot: Pain Intensity: 0 Right Foot: Pain Intensity: 0 Wound/Ulcer History When did wound start?: March 2022 Mode of Arrival/ County Commissioner: Personal vehicle Lives with:: Alone Appetite Description: [...] pen (Lantus Solostar U-100 Insulin) 25 unit subcutQAM 04/14/22 [History Confirmed 04/14/22] insulin lispro 100 [...] w/o penetration to deeper layers Bed Appearance: [place] and Yellow Percent of Wound Bed Granulated/Red: 90 Percent of Devitalized: 10 Length (cm): 0.5 Width (cm): 0.6 Depth (cm): 0.1 CM Sq: 0.300 Surrounding Tissue Appearance: Callous Surrounding Tissue Temp: Warm Drainage Amount: Small Drainage Description: Serosanguineous Drainage Odor: No Odor Left Plantar Great Toe: Type: Diabetic Ulcer Diabetic Ulcer Grading: Superficial ulcer of skin w/o penetration to deeper layers Bed Appearance: [place] and Yellow Percent of Wound Bed Granulated/Red: 50 Percent of Devitalized: 50 Length (cm): 2.3 Width (cm): 1.5 Depth (cm): 0.1 CM Sq: 3.450 Surrounding Tissue Appearance: Callous Surrounding Tissue Temp: Warm Drainage Amount: Small Drainage Description: Serosanguineous Drainage Odor: No Odor Right Plantar Great Toe: Type: Diabetic Ulcer Diabetic Ulcer Grading: Superficial ulcer of skin w/o penetration to deeper layers Bed Appearance: [place] and Yellow Percent of Wound Bed Granulated/Red: 10 Percent of Devitalized: 90 Length (cm): 2.1 Width (cm): 1.1 Depth (cm): 0.1 CM Sq: 2.310 Surrounding Tissue Appearance: Callous Surrounding Tissue Temp: Warm Drainage Amount: Small Drainage Description: Serosanguineous Drainage Odor: No Odor Right Posterior Heel: Type: Diabetic Ulcer Diabetic Ulcer Grading: Superficial ulcer of skin w/o penetration to deeper layers Bed Appearance: [place] and Yellow Percent of Wound Bed Granulated/Red: [...] Estimated blood loss was minimal. Hemostasis was achievedby applying pressure. The right heel ulcer now [...] Estimated blood loss was minimal. Hemostasis was achie jennifer by applying pressure. The left 2nd toe ulcer now appears 95% pink and the size remains the same. The patient tolerated well and had no pain. Results Height: 6 ft Weight: 81.647 kg Body Mass Index: 24.4 Assessment/Plan Assessment/Plan (1) Diabetic foot ulcer: Assessment/Problem Details: rt great toe lt great toe rt heel lt 2nd toe thermal graham but d/t diabetic neuropathy Qualifiers: Diabetes mellitus [...] <Electronically signed by RADHA Novak> 04/14/22 1446 [facility] Work Phone: Evaluation + Plan note No data available for this section [facility] assessment information available [facility] Work Phone: Evaluation note* Diagnosis Onset Date Resolution Status Diabetic foot ulcer acuteDiabeteschronicHyperlipidemiachronicNeuropathychronicTobacco usechronic [facility] Work Phone: Evaluation note* Diagnosis Onset Date Resolution Status Diabetes chronicDiabetic foot ulcerchronicHyperlipidemiachronicNeuropathychronicTobacco usechronic [facility] Work Phone: Evaluation note* Diagnosis Onset Date Resolution Status Diabetes chronicHyperlipidemiachronicNeuropathychronicTobacco usechronicDiabetic foot ulcerresolved [facility] Work Phone: Evaluation note* Diagnosis 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 Low libido Encounter for dietary consultation Class 1 obesity due to excess calories without serious comorbidity with body mass index (BMI) of 34.0 to 34.9 in adult documented in this encounter [facility] Dis[facility] instructions Additional Instructions Return for worsening symptoms Follow-up with wound care and [facility]iat[facility] Work [facility]: Hospital Discharge instructions No data available for this section [facility] Additional Instructions Continue good wound care until completely healed [facility] with family doctor [facility] Work Phone: Progress note Author Fariha Novak [facility] May 27, 2022 2:46pmNote Date/TimeNovember 2021 2:[place] [address] Wound Center Provider Note Signed Patient: Geremias Melchor MR#: [id number] : 1965 Acct:[id number] Age/Sex: 56 / M Copies to: NON STAFF Fariha Novak APRN~ HPI Date of Visit Date of Visit: Date of Service: 05/27/2022 Time of Service: 14:43 Narrative HPI: 04/14/22 Geremias is a 56-year-old male presenting to [facility] wound care program for an initial visit for evaluation and treatment of thermal burn wounds to his bilateral feet that are d/t his diabetic neuropathy. He believes that these began sometime in March and says something about the concretebeing too hot. Geremias is diabetic, possibly for over 20 years he says, and he does have neuropathy and has no sensation in the lower legs. Geremias was taught the dressings of the Vashe Cleanser and collagen silver and he was provided with a list of lotions to help with callus and fissures on his feet. He is not per se happy with his bag loader in [place] and therefore I did give him the name of a local bag loader who could address his concerns with Charcot foot in the right foot as well as other podiatric concerns. Healing will depend greatly on his diabetic control, he tells me his A1c is approximately 6.4 or 6.5, offloading these areas, having a nutritious diet that is higher in protein and amino acids and low in inflammation, having adequate arterial blood flow, quitting or reducing tobaccousage, as well as controlling and treating any infections that may arise. I do not see any signs ofinfection today. 05/04/22 3 of the 4 ulcers [...] wound start?: March 2022 Mode of Arrival/ County Commissioner: Personal vehicle Lives with:: Alone Appetite Description: Within Normal Limits Who helps w/ dressing change?: Self Smoking Status: Current every day smoker [facility] Vaccinated for COVID-19?: Yes Medical History (Updated 05/27/22 @ 14:45 by Fariha Novak APRN) Diabetes Hyperlipidemia Hypertension Neuropathy Surgical History H/O hernia repair Family History (Updated 04/14/22 @ 14:36 by Jennifer Hitchcock, RN) Family/Other Diabetes Social History Smoking Status: [...] pen (Lantus Solostar U-100 Insulin) 25 unit subcutQAM 04/14/22 [History Confirmed 05/27/22] insulin lispro 100 [...] toe rt heel lt 2nd toe thermal graham but d/t diabetic neuropathy Qualifiers: Diabetes mellitus [...] <Electronically signed by RADHA Novak> 05/27/22 1446 [facility] Work Phone: Progress note No data available for this section [facility] Summary Purpose Family History No Family History Records Found Relationship Condition Age at Onset Recorded Date/T shannan family member Diabetes mellitus Unknown Advance Directives No Advanced Directives Records FoundDocuments on File TypeDate RecordedPatient RepresentativeExplanationAdvance Directives and Living WillPower of AttorneyTypeDate RecordedPatient RepresentativeExplanationAdvance Directives and Living WillPower of AttorneyTypeDate RecordedPatient RepresentativeExplanationACP-Advance DirectiveACP-Power of Community Support Associate Advance Directive Response Recorded Date/ Time Advance [...] for any questions regarding your surgery. Call [phone] forurgent questions after 5PM until 8AM 10. [...] this encounter History of Present Illness * oLree Marinelli RN - 12/28/2019 2:36 PM EDT [...] knee pain, unspecified chronicity Reason for Referral StatusReasonSpecialtyDiagnoses / ProceduresReferred By ContactReferred To ContactOpenRadiology Diagnoses Acute pain of right shoulder Procedures MRI SHOULDER RIGHT WO CONTRAST Mignon Townsend, [employer] [address] [place] [address] StatusReasonSpecialtyDiagnoses / ProceduresReferred By ContactReferred To ContactOpenRadiology Diagnoses Right knee pain, unspecified chronicity Procedures MRI KNEE RIGHT WO CONTRAST Mignon Townsend, [employer] [address] [place] [address] Chief Complaint and Reason for Visit Chief Complaint rt foot injury Chief Complaint rt foot injury Open wound M25.571 L97.512 M79.671Reason for VisitDiabetic foot ulcer Diabetes Hyperlipidemia Neuropathy Tobacco use Chief Complaint rt foot injury Open wound M25.571 L97.512 M79.671 M79.671 L97.512Reason for VisitDiabetic foot ulcer Diabetes Hyperlipidemia Neuropathy Tobacco use Chief Complaint rt foot injury M25.571 L97.512 M79.671 M79.671 L97.512 Open wound charcot m14.671Reason for VisitDiabetes Diabetic foot ulcer Hyperlipidemia Neuropathy Tobacco use Chief Complaint rt foot injury M25.571 L97.512 M79.671 M79.671 L97.512 charcot m14.671 Open woundReason for VisitDiabetes Hyperlipidemia Neuropathy Tobacco use Diabetic foot ulcer [...] 19, 2024 5: 53pm Ref: Dr. Brooks, [facility] August 14 3:04pm Additional Source Comments (unrecognized sect ion and content) No Status Records FoundNo Status Records FoundNo Status Records FoundNo Status Records FoundNo Status Records FoundNo Status Records FoundNo Status Records FoundNo Status Records Found INFORMATION SOURCE (unrecogn ized section and content) DATE CREATED AUTHOR 11/15/2018 [facility] DATE CREATED AUTHOR AUTHOR'S ORGANIZ ATION 03/28/2020 [facility] DATE CREATED AUTHOR AUTHOR'S ORGANIZ ATION 06/21/2020 [facility] DATE CREATED AUTHOR AUTHOR'S ORGANIZ ATION 2022 [facility] DATE CREATED AUTHOR AUTHOR'S ORGANIZ ATION 06/18/2023 [facility] DATE CREATED AUTHOR AUTHOR'S ORGANIZ ATION 11/29/2024 [facility] DATE CREATED AUTHOR AUTHOR'S ORGANIZ ATION 12/22/2024 [facility] DATE CREATED AUTHOR AUTHOR'S ORGANIZ ATION 04/14/2025 [facility] Reason for Visit (unrecogniz ed section and content) StatusReasonSpecialtyDiagnoses / ProceduresReferred By ContactReferred To Contact Diagnoses Unspecified rotator cuff tear or rupture of right shoulder, not specified as traumatic RIGHT SHOULDER ROTATOR CUFF TEAR Procedures MD SHLDR ARTHROSCOP,SURG,W/ROTAT CUFF REPR SHOULDER ARTHROSCOPY ROTATOR CUFF REPAIR, POSSIBLE BICEPS TENDONDESIS Tess Escalona MD [address] [place] [address] [facility] StatusReasonSpecialtyDiagnoses / ProceduresReferred By ContactReferred To ContactClosedRadiology Diagnoses Pain in right shoulder Procedures MRI-UPPER EXT JNT WO CONT Tess Escalona MD [address] [facility] [address] [place] [address] [facility] [address] [place] [address] StatusReasonSpecialtyDiagnoses / ProceduresReferred By ContactReferred To ContactClosedRadiology Diagnoses Pain in right knee Procedures HC MRI LOWER EXTREM JT, W/O CONTRAST Mignon Townsend, [employer] [address] [place] [address] [facility] [address] [place] [address] ReasonCommentsTesticular Hypofunction Care Teams (unrecognized sec tion and content) Team Status: Inactive Member Role Status Dates NON STAFF Primary Care Provider Active Rajesh Haq ProviderActive Team Status: Active Member Role Status Dates NON STAFF Primary Care Provider Active Team Status: Active Member Role Status Dates NON STAFF Primary Care Provider Active Anushka Orlando ProviderActive Team Status: Inactive Member Role Status Dates Franky Turpin DPM Attending Provider Active NON STAFFPrimary Care ProviderActive Team Status: Inactive Member Role Status Dates NON STAFF Primary Care Provider Active Nayla Oakes DPM MSAttending ProviderActive Team Status: Inactive Member Role Status Dates NON STAFF Primary Care Provider Active Anushka Orlando ProviderActiveTeam MemberRelationshipSpecialtyStart DateEnd Date Shay Han, [address] [place] [address] PCP - Daniel WANG12/09/22 [place] [address] [place] [address] [address] [place] [id number] PCP - [facility]12/27/22 Team Status: Active Member Role Status Dates Ericka Muniz MD Primary Care Provider Active Team Status: Inactive Member Role Status Dates Mark Upton APRN Emergency Provider Active Start: December 03, 2023 End: December 03, 2023Cornelius [facility] Care ProviderActiveStart: December 03, 2023 End: December 03, 2023 Team Status: Inactive Member Role Status Dates Ericka Muniz MD Primary Care Provider Active Sta rt: December 14, 2023 End: December 14, 2023DANIEL OcampoP-BCEmergency ProviderActiveStart: December 14, 2023 End: December 14, 2023 Team Status: Inactive Member Role Status Dates Ericka Muniz MD Primary Care Provider Active Sta rt: July 19, 2024 End: July 19, 2024Ayanna Brooks NP-CAttending ProviderActiveStart: July 19, 2024 End: July 19, 2024 Team Status: Active Member Role Status Dates Ericka Muniz MD Primary Care Provider Active Sta rt: July 19, 2024 Ayanna Brooks NP-COther ProviderActiveStart: July 19, 2024 Carlos Ware MDAttending ProviderActiveStart: July 19, 2024 Team Status: Inactive Member Role Status Dates Ericka Muniz MD Primary Care Provider Active Sta rt: August 14, 2024 End: August 14demetris Shepherd MDAttending ProviderActiveStart: August 14, 2024 End: August 14, 2024Team MemberRelationshipSpecialtyStart DateEnd Date Jignesh Muniz NP PCP - [facility]12/27/22Team MemberRelationshipSpecialtyStart DateEnd Date Jignesh Muniz TRUE Ontiveros PCP - GeneralFamily Medicine12/27/22 Goals (unrecognized section and content) Goals may [...] BE BASED ON THE PRIMARY CLINICAL RECORDS. [facility]. provides no warranty or guarantee of the accuracy or completeness of information in this document.
--- OUTSIDE RECORDS SUMMARY | 2025-05-08 12:40 | XMS_ITS | CCD ---
Author Organization Unknown Care Team Providers Care Junior Software Engineer Name Role Phone Unavailable Primary Care Provider Unavailabl e Unavailable Chronic Care Management Unavaila ble Summary Purpose DataExchange Insurance Providers Payer name Policy type / Coverage type Covered libertarian ID Effective Begin Date Effective End Date [facility] [id number] Unknown Unknown Family History Family History data not found Medication Administered No Medication Administered data Reason For Visit No Reason For Visit data Medical Equipment No Medical Equipment data Advance Directives No Advance Directive data
== END 2025-05-08 11:39 | disposition home or self-care (01) ==
LOC: WC 11:39
PROVIDERS: Visit Provider Podiatrist Foot & Ankle Surgery
DX: E11.621 Type 2 diabetes mellitus with foot ulcer (principal); L97.415 Non-pressure chronic ulcer of right heel and midfoot with muscle involvement without evidence of necrosis; L97.426 Non-pressure chronic ulcer of left heel and midfoot with bone involvement without evidence of necrosis
CPT/HCPCS: 11043

== ENCOUNTER 2025-05-22 10:51 | Outpatient (OUT) | payer MEDICARE, MEDICAID, SELFPAY ==
--- NOTE | 2025-05-22 | XR_ITS ---
The [address] [address] Patient Name: GEREMIAS ARAYA MRN: [id number] date: 1965 Sex: M Assigned Patient Location: [facility] Current Patient Location: Accession/Order Number: [id number] Exam Date: 05/22/2025 11:05 Report Date: 05/22/2025 12:07 At the request of: NAYLA OAKES DPSarina Procedure: XR foot ARGENT[place] min 3V BILATERAL FEET - 3 views each COMPARISON: 03/05/2025 CLINICAL DATA: Bilateral foot ulcers at the plantar feet. Previous right foot surgery. Weightbearing AP, lateral and oblique views were obtained. There is osteopenia. Postoperative changes of right ankle fusion are again seen with isabela and screws. The hardware appears intact and unchanged. No acute fractures are identified. There is continued dorsal displacement of the mid foot with respect to the hindfoot on the right. There are minor degenerative changes at the first metatarsal phalangeal joints. No developing bony destruction is seen. There is significant soft tissue swelling or radiopaque foreign bodies. XR/XR foot ARGENT[place] min 3V IMPRESSION: STABLE BONY CHANGES AND ANKLE FUSION ON THE RIGHT. NO ACUTE BONY FINDINGS. Impression dictated by: Jasmina Cole M.D. 05/22/2025 12:07 PM Dictation Location: [place] [address] Electronically authenticated by: [id number] Y Date: 05/22/2025 12:07
--- OUTSIDE RECORDS SUMMARY | 2025-05-22 10:56 | XMS_ITS | Patient Health Record ---
Author Organization [facility] in [place] Address [address] [place] [address] Care Team Providers Care Production Hardener Name Role Phone None, Unknown or Primary Care Provider Unavailab Nayla Valles Unavailable [phone] Allergies No Known Allergies Results Component Value Reference Range Notes XR ankle RT min 3V (Not yet reviewed by provider) Interpretation: Performing Lab: Notes/Report: Source Facility: [place] [address] XRay Report Signed Patient: GEREMIAS MELCHOR MR#: [id number] : 1965 Acct:[id number] Age/Sex: 58 / M ADM Date: 08/15/24 Loc: RAD Attending Dr: Nayla Chadwick D.P.M. Ordering Physician: Nayla Chadwick D.P.M. Date of Service: 08/15/24 Procedure(s): XR ankle RT min 3V Accession Number(s): [id number] cc: Nayla Chadwick D.P.M.; Physician,Non-Staff Zari The [place] [address] Patient Name: GEREMIAS MELCHOR MRN: [id number] date: 1965 Sex: M Assigned Patient Location: RAD Current Patient Location: Accession/Order Number: [id number] Exam Date: 08/15/2024 15:20 Report Date: 08/17/2024 [...] increase in bony bridging Electronically authenticated by: SAHSA FLAHERTY Date: 08/17/2024 11:33 Dictated By: Sasha Flaherty M.D. Signed By: 08/17/24 1135 DD/ 1133 TD/TT: Setter Cold Rolling Machine: XR foot RT min 3V (Not yet r eviewed by provider) Interpretation: Performing Lab: Notes/Report: Source Facility: [place] [address] XRay Report Signed Patient: GEREMIAS MELCHOR MR#: [id number] : 1965 Acct:[id number] Age/Sex: 58 / M ADM Date: 08/15/24 Loc: RAD Attending Dr: Nayla Chadwick D.P.M. Ordering Physician: Nayla Chadwick D.P.M. Date of Service: 08/15/24 Procedure(s): XR foot RT min 3V Accession Number(s): [id number] cc: Nayla Chadwick D.P.M.; Physician,Non-Staff Zari The [place] [address] Patient Name: GEREMIAS MELCHOR MRN: [id number] date: 1965 Sex: M Assigned Patient Location: [facility] Current Patient Location: Accession/Order Number: [id number] Exam Date: 08/15/2024 15:20 Report Date: 08/17/2024 [...] Signed By: 08/17/24 1135 DD/ 1133 TD/TT: Setter Cold Rolling Machine: CA segmental UE or LE [place] (N ot yet reviewed by provider) Interpretation: Performing Lab: Notes/Report: Source Facility: [facility]-[address] [place] [address] [place] [address] Cardiology Report Signed Patient: GEREMIAS MELCHOR MR#: [id number] : 1965 Acct:[id number] Age/Sex: 58 / M ADM Date: 10/31/24 Loc: CARD Attending Dr: Rachana GE Ordering Physician: Rachana Jean Date of Service: 10/31/24 Procedure(s): CA segmental UE or LE AR[place]ENTINA Accession Number(s): [id number] cc: Rachana Jean; Physician,Non-Staff Zari [facility] Test Date: 2024-10-31 Pat Name: GEREMIAS MELCHOR Department: Room: - Gender: 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 Interpretive Statements [...] MORAN Signed By: 10/31/24180110/31/241801 DD/ 1425 TD/TT: Setter Cold Rolling Machine: Reason For Referral No Information Medications Medication SIG (Take, Route, Frequency, Duration) Notes Start Date End Date Status Jardiance ActiveMeloxicamActiveAspirinActiveSildenafil CitrateActiveGabapentinActive FluoxetineActiveLisinoprilActiveMetoprolol SuccinateActiveCholecalciferolActive Atorvastatin CalciumActiveOmeprazoleActiveInsulin LisproActiveThiamine HClActive Doxepin HClActiveALPRAZolamActiveLantusActiveCephalexin 500 MG1 capsule Orally tid; Duration: 14 days5Active Problems Problem Type SNOMED Code ICD Code Onset Dates Problem Status W/U Status Risk Notes Problem Foot ulcer due to ty pe 2 diabetes mellitus (5123091483510) Type 2 diabetes mellitus with foot ulcer (E11.621) ActiveconfirmedProblemAnkle ulcer (677515554)Non-pressure chronic ulcer of right ankle with fat layer exposed (L97.312)ActiveconfirmedProblemNon-pressure chronic ulcer of left heel and midfoot limited to breakdown of skin (L97.421)Active confirmedProblemChronic ulcer of foot (426112677)Non-pressure chronic ulcer of left heel and midfoot with fat layer exposed (L97.422)ActiveconfirmedProblem Chronic ulcer of foot (792019671)Non-pressure chronic ulcer of other part of left foot with fat layer exposed (L97.522)ActiveconfirmedProblemArthropathy associated with a neurological disorder (15775899)Charcot's joint, right ankle and foot (M14.671)ActiveconfirmedProblemArthralgia of the ankle and/or foot (215914668)Pain in right ankle and joints of right foot (M25.571)Activeconfirmed ProblemHypertension (74016424)Hypertension (I10)ActiveconfirmedProblemDiabetes mellitus type 2 (disorder) (27099248)DM2 (diabetes mellitus, type 2) (E11.9) ActiveconfirmedProblemChronic ulcer of foot (243529174)Non-pressure chronic ulcer of right heel and midfoot with fat layer exposed (L97.412)Activeconfirmed ProblemFoot ulcer due to type 2 diabetes mellitus (0181096769841)Diabetes mellitus with foot ulcer due to multiple causes (E11.621)ActiveconfirmedProblem Acquired equinus deformity of foot (86705237)Acquired equinus deformity of foot (M21.6X9)ActiveconfirmedProblemChronic osteomyelitis of right foot (1600977405996363)Chronic osteomyelitis of right foot (M86.671)Activeconfirmed ProblemPolyneuropathy due to type 2 diabetes mellitus (105515961)Diabetes mellitus with diabetic polyneuropathy (E11.42)ActiveconfirmedProblemAnkle ulcer (157390179)Non-healing ulcer of ankle, right, with fat layer exposed (L97.312) ActiveconfirmedProblemAlcohol withdrawal syndrome (705189002)Alcohol withdrawal syndrome (F10.239)ActiveconfirmedProblemHigh cholesterol (40975831)High cholesterol (E78.00)ActiveconfirmedProblemPresence of functional implant (Z96.9) ActiveconfirmedProblemAnkle ulcer (524576935)Non-pressure chronic ulcer of ankle, right, limited to breakdown of skin (L97.311)ActiveconfirmedProblem Localized, primary osteoarthritis of the ankle and/or foot (721708266) Osteoarthritis of ankle and foot, right (M19.071)ActiveconfirmedProblemDiabetic neuropathic arthropathy (128982638)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)ActiveconfirmedProblemChronic osteomyelitis of ankle and/or foot (909279140)Chronic osteomyelitis of right foot with draining sinus (M86.471)ActiveconfirmedProblemNon-pressure chronic ulcer of right heel and midfoot with muscle involvement without evidence of necrosis (L97.415)Active confirmedProblemNon-pressure chronic ulcer of left heel and midfoot with bone involvement without evidence of necrosis (L97.426)ActiveconfirmedProblem Arthropathy associated with a neurological disorder (72522508)Charcot''s joint of right ankle (M14.671)ActiveconfirmedProblemAnkle ulcer (121107862)Ischemic ulcer of right ankle with fat layer exposed (L97.312)ActiveconfirmedProblemAnkle ulcer (153826522)Chronic ulcer of right ankle with fat layer exposed (L97.312) ActiveconfirmedProblemArthritis of right subtalar joint (84361013149699153) 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 [address] 08/15/2024 N[facility] ([facility])[address] [place] [address]/05/2025[facility] M14.671 [...] I did discuss potential utilization of a Huslia boot which he adamantly declined. Although there [...] will follow-up next week in the wound hymusp4908/15/2024ellulitis of left lower limb (ICD-10 - L03.116)08/15/2024Pain [...] [employer]IE[employer] DUAL ADV PRIMARY MEDICARE [address] [place] [address] [id number] [facility] Geremias Melchor Self - patient is the insured 1 MEDICAID [place] [address] [address] [place], [place] [id number] [id number], Asafelf - patient is the insured Medical (General) History Medical History History ICD Code diabetic neuropathy Surgical History Surgery Date(Month/Year) left ankle fusion left foot recon 023 removal of hardware 06/27/2023
--- OUTSIDE RECORDS SUMMARY | 2025-05-22 10:56 | XMS_ITS | Patient Health Record ---
Author Organization [facility] Address [address] [place] [address] Care Team Providers Care Gas Reverser Name Role Phone Flavio WHEELER, Manfred Primary Care Provider Farzad Watkins Unavailable [phone] Reason For Referral No Information Medications Medication [...] Problem Status W/U Status Risk Notes Problem Inflammation of burs a of olecranon (813455787) Olecranon bursitis, right elbow (M70.21) ActiveconfirmedProblemIncomplete rupture of right rotator cuff (M75.111)Active confirmedProblemShoulder joint pain (384809130)Right shoulder pain, unspecified chronicity (M25.511)Activeconfirmed Plan Of Treatment No Information Insurance Providers Payer Name Payer Address Payer Phone Subscriber Number Group Number Insured Name Patient Relationship to Insured Coverage Start Date Coverage End Date Medicare Scal[employer]vantage [address] [place] [address] [id number] [facility] [facility] GEREMIAS ARAYA Self - patient is the insured [facility] MedicaidP [address] [place] [id number] SHAWN ARAYAelf - patient is the [place] [id number], JOHNSelf - patient is the insured Medical [...]
--- OUTSIDE RECORDS SUMMARY | 2025-05-22 10:56 | XMS_ITS | Clinical Summary ---
Author Organization [facility] Address [address] [place] [address] Care Team Providers Care Sales Estimator Name Role Phone Manfred Nuñez MD Primary Care Provider + Allergies No known active allergies Medications MedicationSigDispense QuantityRefillsLast FilledStart DateEnd DateStatus ALPRAZolam (XANAX) 1 MG tablet Take 1 mg by mouth 2 (two) times a day as needed for anxiety. 2 tabs (2mg) qAM, 1 tab qPMActive nebivolol (BYSTOLIC) 10 MG tablet Take 10 mg by mouth daily.Active Active Problems ProblemNoted DateDiagnosed FypwKmmkcojzvfyo43/21/2015 Assessment & Plan (11/29/2014 11:42 AM EDT): Recent diagnosis, started bystolic 4-5 days prior to admission -continue bystolic. Follow up with primary care in 1 week. Ykkizvq2511/28/2014 Assessment & Plan (11/29/2014 11:43 AM EDT): Chronic. 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 Resolved Problems ProblemNoted DateDiagnosed DateResolved DateDVT hwalockkezp25 Family History Medical HistoryRelationCommentsHearing lossMaternal GrandfatherDiabetesPaternal UncleRelationStatusCommentsMaternal GrandfatherPaternal Uncle Social History Tobacco UseTypesPacks/DayYears UsedDateSmoking Tobacco: Every VnuZjoedxwfol077 Tobacco Cessation:Ready to Q uit: No Alcohol UseStandard Drinks/WeekCommentsYes0 (1 standard drink = 0.6 oz pure alcohol)daily: 2-3 rums per daySex and Gender InformationValueDate RecordedSex Assigned at BirthNot on fileLegal FqbMgua4911/28/2013 1:53 PM EDTGender Identity Not on fileSexual OrientationNot on file Last Filed Vital Signs Vital SignReadingTime TakenCommentsBlood Ivmmfokk243/8311/29/2014 11:26 AM EDT Pmdra188311/29/2014 11:26 AM KQKUidjhtthhlh18.4 ??C (97.6 ??F)11/29/2014 11:26 AM EDTRespiratory Bbcx576111/29/2014 11:26 AM EDTOxygen Rhkuajqcao09%11/29/2014 11:26 AM EDTInhaled Oxygen Concentration--Mhifdb181 kg (242 lb 8.1 oz)11/28/2014 1:05 PM GZZUksuyk140.9 cm (6')11/28/2014 1:05 PM EDTBody Mass Index32.8911/28/2014 1:05 PM EDT Plan of Treatment Not on file Insurance Advance Directives For more information, please contact: [phone] * Full Code (Latest Code Status on File) Date ActivatedDate InactivatedComments11/28/2014 7:59 PM11/29/2014 2:53 PM Care Teams Team MemberRelationshipSpecialtyStart DateEnd Date Manfred Nuñez MD [address] [place] [address] PCP - GeneralFamily Medicine11/28/14
--- OUTSIDE RECORDS SUMMARY | 2025-05-22 10:56 | XMS_ITS | CCD ---
Author Organization Unknown Care Team Providers Care Car Inspector Name Role Phone Unavailable Primary Care Provider Unavailabl e Unavailable Chronic Care Management Unavaila ble Summary Purpose DataExchange Insurance Providers Payer name Policy type / Coverage type Covered green party ID Effective Begin Date Effective End Date [facility] [id number] Unknown Unknown Family History Family History data not found Medication Administered No Medication Administered data Reason For Visit No Reason For Visit data Medical Equipment No Medical Equipment data Advance Directives No Advance Directive data
--- OUTSIDE RECORDS SUMMARY | 2025-05-22 10:57 | XMS_ITS | Clinical Summary ---
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); Low libido; Encounter for dietary consultation; Class 1 obesity due to excess calories without serious comorbidity with body mass index (BMI) of 34.0 to 34.9 in adult04/08/2025amboo flowsheet [facility] [address] [place] [phone] Kimmie Yarbrough MD from Last 3 Months [...] Last Filed Vital Signs Vital SignReadingTime TakenCommentsBlood Kmrsvpxg269/7810 12:00 PM EDT Zwhdq591404/08/2025 2:02 PM EDTTemperature--Respiratory Kkdt264904/08/2025 2:02 PM EDTOxygen Xozkkxdhss18%04/08/2025 2:02 PM EDTInhaled Oxygen Concentration-- Uoiyib251 kg (249 lb)04/08/2025 2:02 PM AYYFdpdzz286.3 cm (5' 11 )04/08/2025 2:02 PM EDTBody Mass Index34.7304/08/2025 2:02 PM EDT Plan of Treatment DateTypeDepartmentCare Team (Latest Contact Info)Jspyxodwtvk40/07/2026 2:20 PM ESTOffice Visit [facility] [address] [place] [address] Cinthia Magana PA [address] [place] [phone] 08/05/2025 2:30 PM ESTOffice Visit [facility] [address] [place] [phone] Kimmie Yarbrough MD [address] [place] [address] Health MaintenanceDue DateLast DoneCommentsCT Tgncmorxnzzx44/03/1965Colonoscopy 1964Colorectal Cancer Utdbqoifj04/03/1965FIT-DNA1964FIT1964 FOBT1964 1543Lsieqvgqcxupz69/03/1965COVID-19 Vaccine ( season) , 10/14/2020, 09/12/2020Influenza Vaccine (#1)2025 05/08/2024, 04/28/2022, 04/30/2021neumococcal Vaccine: Pediatrics (0 to 5 Years) and At-Risk Patients (6 to 64 Years)Aged OutNo longer eligible based on patient's age to complete this topic Insurance Care Teams Team MemberRelationshipSpecialtyStart DateEnd Jignesh Muniz, VEGETABLE FARMING SUPERVISOR PCP - GeneralFamily Medicine12/27/22
--- OUTSIDE RECORDS SUMMARY | 2025-05-22 11:21 | XMS_ITS | CCD ---
Author Organization [facility] Inform ion Partnership [facility] Care Team Providers Care Pulmonologist Name Role Phone LENKA ROQUE Attending Unavailable [...] Physician Unavailab Ericka David Primary Care Provider [phone] Edilberto Zamora Primary Care Physician Edilberto Pendleton Primary Care Physician Ericka Dotson Primary Care Physician UnavailEricka Encarnacion Primary Care Provider [phone] Ericka Muniz Primary Care Physician Unavailab TARIK [...] le Zamora, Edilberto L Primary Care Physician Faraht Zamora, Edilberto L Primary Care Physician Unavai labsolomon Zamora, Edilberto L Primary Care Physician Unavai lable Flavio, Ericka Shah Primary Care Physician Unavailab solomon Muniz, Ericka Shah Unavailable Unavailable Sera, Edilberto L Primary Care Physician Unavai labsolomon Zamora, Edilberto L Primary Care Physician Unavai labsolomon Zamora, Edilberto L Primary Care Physician Unavadanielle Muniz, Ericka Shah Primary Care Physician Unavailab solomon [facility], Franky P Primary Care Physician Unavai lable Dyana, Franky P Primary Care Physician Unavai lable Dyana, Franky P Primary Care Physician Unavai labsolomon Zamora, Edilberto L Primary Care Physician Unavai labsolomon Zamora, Edilberto L Primary Care Physician Unavai corinne Muniz, Ericka Shah Primary Care Physician Unavailab solomon Dyana, Franky P Primary Care Physician Unavai lable [facility], Franky P Primary Care Physician Unavai lable [facility], Franky Yu Primary Care Physician Unavai lable NON STAFF Primary Care Provider UnavailSOLE Short Emergency Provider RADHA Novak Attending Provider [facility], CHERYL Yu Attending Provider NON STAFF Primary Care Provider UnavailSOLE Short Emergency Provider [facility], CHERYL Yu Attending Provider RADHA Novak [facility] Attending [facility] [phone] RADHA Novak Attending Provider Edilberto Zamora Primary [...] Flavio WHEELER, Jignesh Ontiveros Primary Care Provider [phone] Ericka Muniz Primary Care Physician Unavailab Ericka David Primary Care Physician Unavailab RADHA Ayers Emergency Provider [phone] MD Ericka Muniz Primary Care Provider [phone] Gregg, [employer]- Missy Galan Emergency Provider Ericka Muniz Primary [...] UnavailJignesh Sharpe NP Primary Care Provider KIMMIE YRABROUGH Attending Unavailable Medications Current Medications MedicationDrug Class(es)DatesSig [...] sources)Platelet Aggregation Inhibitor, Nonsteroidal Anti-inflammatory Drug Start: 54-44-1703miza 1 capsule by mouth once dailyAspirin 81 mg Capsule Active 81 MG PO Daily April 13, 2022 11:00pmASPIRIN 81 PO ActiveASPIRIN 81 PO Aspirin 81 Activetake 1 tablet by mouth once dailytake 1 tablet (81 mg) by oral route once dailyASPIRIN 81 PO Aspirin 81 0 Activeatorvastatin 20 mg oral tablet (20 sources)HMG-CoA Reductase InhibitorStart: 48-74-4579jzdq 1 tablet by mouth once dailyatorvastatin (Lipitor) 20 MG tablet Take 20 mg by mouth Daily 03/13/2025 ActiveStart: 85-31-9897upry 1 tablet by mouth once dailytake 1 tablet (20 mg) by oral route once dailyStart: 46-64-4554dvqk 1 tablet by mouth once dailytake 1 tablet (20 mg) by oral route once dailyStart: 53-31-3836wmeu 1 tablet by mouth once dailyAtorvastatin 20 mg tablet Active 20 MG PO Daily August 14, 2024 12:00amStart: 42-67-8887dcla 1 tablet by mouth once dailytake 1 tablet (20 mg) by oral route once dailyStart: 04-14-2022 End: 76-51-8560jwqb 2 tablets by mouth once daily at bedtimeAtorvastatin 10 mg Tablet Discontinued 20 MG PO Daily at bedtime April 13, 2022 11:00pm August 14, 2024 3:16pmStart: 21-48-4711camk 20 mg by mouth once daily at bedtime Atorvastatin Active 20 MG PO Daily at bedtime April 14, 2022 12:00amStart: 66-97-8460ytms 10 mg by mouth once daily at bedtimeAtorvastatin Active 10 MG PO Daily at bedtime April 14, 2022 12:00amStart: 16-10-7070vydi 1 tablet by mouth once daily at bedtimeatorvastatin 10 mg oral tablet 09/03/2021 TAKE ONE TABLET BY MOUTH ONCE DAILY AT BEDTIMEStart: 73-92-9834vtiq 1 tablet by mouth once daily at bedtimeatorvastatin 10 mg oral tablet 04/23/2020 TAKE ONE TABLET BY MOUTH ONCE DAILY AT BEDTIMEStart: 97-60-4736wrqq 1 tablet by mouth once daily at bedtimeatorvastatin 10 mg oral tablet 08/30/2018 TAKE ONE TABLET BY MOUTH ONCE DAILY AT BEDTIMEStart: 06-03-2015 End: 04-83-9769bbbq 1 tablet by mouth once daily at bedtimetake 1 tablet (10 mg) by oral route once daily at bedtimecalcium chloride 0.0014 meq/ml / potassium chloride 0.004 meq/ml / sodium chloride 0.103 meq/ml / sodium lactate 0.028 meq/ml injectable solution (1 source)Start: 98-46-7544eismceqq ringers infusion2 ml fentaNYL 0.05 mg/ml injection (2 sources)Opioid AgonistStart: 63-91-3335lqxxpBUW (SUBLIMAZE) injection 50 mcg Start: 76-79-8070gvpskPYF (SUBLIMAZE) injection 25 mcg30 actuat fluticasone furoate 0.1 mg/actuat / umeclidinium 0.0625 mg/actuat / vilanterol 0.025 mg/ac tuat dry powder inhaler (3 sources)Anticholinergic, Corticosteroid, beta2-Adrenergic AgonistStart: 43-98-6053tlso 1 puff(s) by inhalation once dailyTrelegy Ellipta 100-62.5-25 MCG/ACT aerosol powder INHALE 1 PUFF ONCE DAILY 11/12/2024 ActiveStart: 94-85-4518Rlclvongvhj-Umeclidin-Vilanter (Trelegy Ellipta) 100-62.5-25 mcg blister with device Active 1 INH INHALATION Daily 60 August 14, 2024 12:00am gabapentin 800 mg oral tablet (20 sources)Anti-epileptic AgentStart: 11-30-2024 End: 44-36-4807ltzq 1 tablet by mouth three times dailyTAKE 1 TABLET BY MOUTH THREE TIMES DAILYStart: 11-30-2021 End: 41-47-3033ojqx 1 tablet by mouth three times dailyGabapentin 800 mg Tablet Active 800 MG PO Three times daily April 13, 2022 11:00pmStart: 08-24-2021 End: 57-32-7461ewxi 1 tablet by mouth three times dailygabapentin 800 mg tablet 08/24/2021 09/23/2021 TAKE 1 TABLET BY MOUTH THREE TIMES DAILYStart: 08-11-2020 End: 35-83-9952hrkx 1 tablet by mouth three times dailygabapentin 800 mg oral tablet 12/23/2020 06/21/2021 TAKE 1 TABLET BY MOUTH THREE TIMES DAILYStart: 07-07-2020 End: 21-15-4312uqoy 1 tablet by mouth three times dailygabapentin 800 mg oral tablet 07/07/2020 08/06/2020 TAKE 1 TABLET BY MOUTH THREE TIMES DAILYStart: 05-15-2020 End: 32-45-3216erdu 1 tablet by mouth three times dailygabapentin 800 mg oral tablet 05/15/2020 06/14/2020 TAKE 1 TABLET BY MOUTH THREE TIMES DAILYStart: 61-23-4949dqor 1 tablet by mouth three times dailygabapentin 800 mg oral tablet 08/13/2019 TAKE 1 TABLET BY MOUTH THREE TIMES DAILYStart: 06-03-2017 End: 76-66-5731obhr 1 tablet by mouth three times dailyTAKE ONE TABLET BY MOUTH THREE TIMES DAILYStart: 06-03-2017 End: 49-06-5498qjei 1 tablet by mouth three times dailyTAKE ONE TABLET BY MOUTH THREE TIMES DAILYStart: 06-03-2017 End: 16-49-4628syjh 1 tablet by mouth three times dailyTAKE ONE TABLET BY MOUTH THREE TIMES DAILYStart: 06-03-2017 End: 87-22-0062ptso 1 tablet by mouth three times dailyTAKE ONE TABLET BY MOUTH THREE TIMES DAILYStart: 06-03-2017 End: 30-50-2820uvzs 1 tablet by mouth three times dailyTAKE ONE TABLET BY MOUTH THREE TIMES DAILYStart: 06-03-2017 End: 58-93-3851zaej 1 tablet by mouth three times dailyTAKE ONE TABLET BY MOUTH THREE TIMES DAILYStart: 06-03-2017 End: 66-05-8573jgtu 1 tablet by mouth three times dailyTAKE ONE TABLET BY MOUTH THREE TIMES DAILYStart: 06-03-2017 End: 76-82-7662kllu 1 tablet by mouth three times dailyTAKE ONE TABLET BY MOUTH THREE TIMES DAILYStart: 06-03-2017 End: 47-44-0776qvic 1 tablet by mouth three times dailyTAKE ONE TABLET BY MOUTH THREE TIMES DAILYStart: 06-03-2017 End: 83-03-5192yamk 1 tablet by mouth three times dailygabapentin 600 mg oral tablet 06/03/2017 06/03/2017 TAKE ONE TABLET BY MOUTH THREE TIMES DAILYStart: 06-03-2017 End: 95-02-0417rbeb 1 tablet by mouth three times dailygabapentin 600 mg oral tablet 06/03/2017 06/03/2017 TAKE ONE TABLET BY MOUTH THREE TIMES DAILYStart: 06-03-2017 End: 92-28-3732esuo 1 tablet by mouth three times dailygabapentin 600 mg oral tablet 06/03/2017 06/03/2017 TAKE ONE TABLET BY MOUTH THREE TIMES DAILYStart: 06-03-2017 End: 06-73-4484kiio 1 tablet by mouth three times dailygabapentin 600 mg oral tablet 06/03/2017 06/03/2017 TAKE ONE TABLET BY MOUTH THREE TIMES DAILYStart: 06-03-2017 End: 76-01-1479vhut 1 tablet by mouth three times dailygabapentin 600 mg oral tablet 06/03/2017 06/03/2017 TAKE ONE TABLET BY MOUTH THREE TIMES DAILYStart: 06-03-2017 End: 58-42-6929cfan 1 tablet by mouth three times dailygabapentin 600 mg oral tablet 06/03/2017 06/03/2017 TAKE ONE TABLET BY MOUTH THREE TIMES DAILYStart: 06-03-2017 End: 39-89-0999ekmt 1 tablet by mouth three times dailygabapentin 600 mg oral tablet 06/03/2017 06/03/2017 TAKE ONE TABLET BY MOUTH THREE TIMES DAILYStart: 06-03-2017 End: 23-61-5782njxx 1 tablet by mouth three times dailygabapentin 600 mg oral tablet 06/03/2017 06/03/2017 TAKE ONE TABLET BY MOUTH THREE TIMES DAILYStart: 06-03-2017 End: 39-49-1870bgra 1 tablet by mouth three times dailygabapentin 600 mg oral tablet 06/03/2017 06/03/2017 TAKE ONE TABLET BY MOUTH THREE TIMES DAILYStart: 06-03-2017 End: 51-51-6045sxxs 1 tablet by mouth three times dailygabapentin 600 mg oral tablet 06/03/2017 06/03/2017 TAKE ONE TABLET BY MOUTH THREE TIMES DAILYStart: 06-03-2017 End: 44-01-3634hiak 1 tablet by mouth three times dailygabapentin 600 mg oral tablet 06/03/2017 06/03/2017 TAKE ONE TABLET BY MOUTH THREE TIMES DAILYStart: 06-03-2017 End: 85-19-4765mlcx 1 tablet by mouth three times dailygabapentin 600 mg oral tablet 06/03/2017 06/03/2017 TAKE ONE TABLET BY MOUTH THREE TIMES DAILYStart: 06-03-2017 End: 33-80-6337ltth 1 tablet by mouth three times dailygabapentin 600 mg oral tablet 06/03/2017 06/03/2017 TAKE ONE TABLET BY MOUTH THREE TIMES DAILYStart: 06-03-2017 End: 01-68-3258ldsk 1 tablet by mouth three times dailygabapentin 600 mg oral tablet 06/03/2017 06/03/2017 TAKE ONE TABLET BY MOUTH THREE TIMES DAILYStart: 06-03-2017 End: 66-78-7841gwgh 1 tablet by mouth three times dailygabapentin 600 mg oral tablet 06/03/2017 06/03/2017 TAKE ONE TABLET BY MOUTH THREE TIMES DAILYStart: 06-03-2017 End: 74-00-9030rrlw 1 tablet by mouth three times dailygabapentin 600 mg oral tablet 06/03/2017 06/03/2017 TAKE ONE TABLET BY MOUTH THREE TIMES DAILYStart: 06-03-2017 End: 42-75-8056iilp 1 tablet by mouth three times dailygabapentin 600 mg oral tablet 06/03/2017 06/03/2017 TAKE ONE TABLET BY MOUTH THREE TIMES DAILYStart: 06-03-2017 End: 36-55-6205ewfa 1 tablet by mouth three times dailygabapentin 600 mg oral tablet 06/03/2017 06/03/2017 TAKE ONE TABLET BY MOUTH THREE TIMES DAILYStart: 06-03-2017 End: 53-28-2318mksu 1 tablet by mouth three times dailygabapentin 600 mg oral tablet 06/03/2017 06/03/2017 TAKE ONE TABLET BY MOUTH THREE TIMES DAILYStart: 06-03-2017 End: 51-65-0279pnyl 1 tablet by mouth three times dailygabapentin 600 mg oral tablet 06/03/2017 06/03/2017 TAKE ONE TABLET BY MOUTH THREE TIMES DAILYStart: 06-03-2017 End: 03-41-5023zipw 1 tablet by mouth three times dailygabapentin 600 mg oral tablet 06/03/2017 06/03/2017 TAKE ONE TABLET BY MOUTH THREE TIMES DAILYStart: 06-03-2017 End: 54-27-0491ajjj 1 tablet by mouth three times dailygabapentin 600 mg oral tablet 06/03/2017 06/03/2017 TAKE ONE TABLET BY MOUTH THREE TIMES DAILYStart: 06-03-2017 End: 41-33-2870uxfq 1 tablet by mouth three times dailygabapentin 600 mg oral tablet 06/03/2017 06/03/2017 TAKE ONE TABLET BY MOUTH THREE TIMES DAILYStart: 06-03-2017 End: 22-52-0417cqhm 1 tablet by mouth three times dailygabapentin 600 mg oral tablet 06/03/2017 06/03/2017 TAKE ONE TABLET BY MOUTH THREE TIMES DAILYStart: 06-03-2017 End: 98-24-7333mnpl 1 tablet by mouth three times dailygabapentin 600 mg oral tablet 06/03/2017 06/03/2017 TAKE ONE TABLET BY MOUTH THREE TIMES DAILYStart: 06-03-2017 End: 15-68-8198clwz 1 tablet by mouth three times dailygabapentin 600 mg oral tablet 06/03/2017 06/03/2017 TAKE ONE TABLET BY MOUTH THREE TIMES DAILYStart: 06-03-2017 End: 49-88-6957dcwf 1 tablet by mouth three times dailygabapentin 600 mg oral tablet 06/03/2017 06/03/2017 TAKE ONE TABLET BY MOUTH THREE TIMES DAILYStart: 06-03-2017 End: 82-48-4040nowm 1 tablet by mouth three times dailygabapentin 600 mg oral tablet 06/03/2017 06/03/2017 TAKE ONE TABLET BY MOUTH THREE TIMES DAILYStart: 06-03-2017 End: 88-55-1195qlth 1 tablet by mouth three times dailygabapentin 600 mg oral tablet 06/03/2017 06/03/2017 TAKE ONE TABLET BY MOUTH THREE TIMES DAILYStart: 06-03-2017 End: 92-76-6124ygai 1 tablet by mouth three times dailygabapentin 600 mg oral tablet 06/03/2017 06/03/2017 TAKE ONE TABLET BY MOUTH THREE TIMES DAILYStart: 06-03-2017 End: 18-86-5645ejvq 1 tablet by mouth three times dailygabapentin 600 mg oral tablet 06/03/2017 06/03/2017 TAKE ONE TABLET BY MOUTH THREE TIMES DAILYStart: 06-03-2017 End: 81-64-5337vxwb 1 tablet by mouth three times dailygabapentin 600 mg oral tablet 06/03/2017 06/03/2017 TAKE ONE TABLET BY MOUTH THREE TIMES DAILYStart: 06-03-2017 End: 32-61-6504qrji 1 tablet by mouth three times dailygabapentin 600 mg oral tablet 06/03/2017 06/03/2017 TAKE ONE TABLET BY MOUTH THREE TIMES DAILYStart: 06-03-2017 End: 75-87-9441qtvh 1 tablet by mouth three times dailygabapentin 600 mg oral tablet 06/03/2017 06/03/2017 TAKE ONE TABLET BY MOUTH THREE TIMES DAILYStart: 06-03-2017 End: 01-49-6661gzit 1 tablet by mouth three times dailygabapentin 600 mg oral tablet 06/03/2017 06/03/2017 TAKE ONE TABLET BY MOUTH THREE TIMES DAILYStart: 06-03-2017 End: 10-45-1208nvjc 1 tablet by mouth three times dailygabapentin 600 mg oral tablet 06/03/2017 06/03/2017 TAKE ONE TABLET BY MOUTH THREE TIMES DAILYStart: 06-03-2017 End: 68-32-2892rmvr 1 tablet by mouth three times dailygabapentin 600 mg oral tablet 06/03/2017 06/03/2017 TAKE ONE TABLET BY MOUTH THREE TIMES DAILYStart: 06-03-2017 End: 83-19-4620fmba 1 tablet by mouth three times dailygabapentin 600 mg oral tablet 06/03/2017 06/03/2017 TAKE ONE TABLET BY MOUTH THREE TIMES DAILYStart: 06-03-2017 End: 09-87-6869lzbj 1 tablet by mouth three times dailygabapentin 600 mg oral tablet 06/03/2017 06/03/2017 TAKE ONE TABLET BY MOUTH THREE TIMES DAILYStart: 06-03-2017 End: 78-34-1110scrq 1 tablet by mouth three times dailygabapentin 600 mg oral tablet 06/03/2017 06/03/2017 TAKE ONE TABLET BY MOUTH THREE TIMES DAILYStart: 06-03-2017 End: 19-84-1542coeo 1 tablet by mouth three times dailygabapentin 600 mg oral tablet 06/03/2017 06/03/2017 TAKE ONE TABLET BY MOUTH THREE TIMES DAILYStart: 06-03-2017 End: 26-47-0861uqbk 1 tablet by mouth three times dailygabapentin 600 mg oral tablet 06/03/2017 06/03/2017 TAKE ONE TABLET BY MOUTH THREE TIMES DAILYStart: 06-03-2017 End: 95-13-4282kzrf 1 tablet by mouth three times dailygabapentin 600 mg oral tablet 06/03/2017 06/03/2017 TAKE ONE TABLET BY MOUTH THREE TIMES DAILYStart: 06-03-2017 End: 22-82-1501jglh 1 tablet by mouth three times dailygabapentin 600 mg oral tablet 06/03/2017 06/03/2017 TAKE ONE TABLET BY MOUTH THREE TIMES DAILYStart: 06-03-2017 End: 07-61-7677tpmd 1 tablet by mouth three times dailygabapentin 600 mg oral tablet 06/03/2017 06/03/2017 TAKE ONE TABLET BY MOUTH THREE TIMES DAILYStart: 06-03-2017 End: 46-28-8631xooq 1 tablet by mouth three times dailygabapentin 600 mg oral tablet 06/03/2017 06/03/2017 TAKE ONE TABLET BY MOUTH THREE TIMES DAILYStart: 06-03-2017 End: 68-74-1426wozi 1 tablet by mouth three times dailygabapentin 600 mg oral tablet 06/03/2017 06/03/2017 TAKE ONE TABLET BY MOUTH THREE TIMES DAILYStart: 06-03-2017 End: 12-30-6309suyu 1 tablet by mouth three times dailygabapentin 600 mg oral tablet 06/03/2017 06/03/2017 TAKE ONE TABLET BY MOUTH THREE TIMES DAILYStart: 06-03-2017 End: 03-65-1548pvox 1 tablet by mouth three times dailygabapentin 600 mg oral tablet 06/03/2017 06/03/2017 TAKE ONE TABLET BY MOUTH THREE TIMES DAILYStart: 06-03-2017 End: 54-26-0078yvpr 1 tablet by mouth three times dailygabapentin 600 mg oral tablet 06/03/2017 06/03/2017 TAKE ONE TABLET BY MOUTH THREE TIMES DAILYStart: 06-03-2017 End: 18-87-9726flxi 1 tablet by mouth three times dailygabapentin 600 mg oral tablet 06/03/2017 06/03/2017 TAKE ONE TABLET BY MOUTH THREE TIMES DAILYStart: 06-03-2017 End: 89-25-3319dxyr 1 tablet by mouth three times dailygabapentin 600 mg oral tablet 06/03/2017 06/03/2017 TAKE ONE TABLET BY MOUTH THREE TIMES DAILYStart: 06-03-2017 End: 91-42-5957khnq 1 tablet by mouth three times dailygabapentin 600 mg oral tablet 06/03/2017 06/03/2017 TAKE ONE TABLET BY MOUTH THREE TIMES DAILYStart: 03-18-2016 End: 98-56-4482ofga 1 tablet by mouth three times dailytake 1 tablet (600 mg) by oral route 3 times per daygabapentin (Neurontin) 800 MG tablet every 8 (eight) hours ActiveInsulin Lispro (1 Unit Dial) 100 UNIT/ML Subcutaneous Solution Pen-injector (20 sources)Start: 04-05-2022 End: 14-54-9878Vipqwlk Lispro (1 Unit Dial) 100 UNIT/ML Subcutaneous Solution Pen-injector 04/05/2022 09/27/2022 INJECT 12 UNITS SUBCUTANEOUSLY WITH MEALS. PRIME WITH 2 UNITS EACH USEStart: 11-24-2021 End: 87-84-4569Cafmfxx Lispro (1 Unit Dial) 100 UNIT/ML Subcutaneous Solution Pen-injector 11/24/2021 04/13/2022 INJECT 12 UNITS SUBCUTANEOUSLY WITH MEALS. PRIME WITH 2 UNITS EACH USEInsulin Lispro 100 unit/mL Insulin Pen (2 sources)Start: 61-64-6196wbqjid 12 [IU] by subcutaneous injection three times dailyInsulin Lispro 100 unit/mL Insulin Pen Active 12 UNIT SUBCUT Three times daily April 13, 2022 11:00pm4 ml labetalol hydrochloride 5 mg/ml cartridge (1 source)beta-Adrenergic BlockerStart: 43-03-7693kymksdrlu (NORMODYNE;TRANDATE) injection 5 mgammonium lactate 120 mg/ml topical cream (4 sources)Start: 17-29-5838bocupxbb lactate (Amlactin) 12 % cream 1 application every 12 (twelve) hours. 05/25/2022 Activelisinopril 10 mg oral tablet (20 sources)Angiotensin Converting Enzyme InhibitorStart: 67-16-3758ekyf 1 tablet by mouth once dailylisinopril 10 MG tablet Take 10 mg by mouth Daily 02/04/2025 ActiveStart: 00-27-9505kbbn 1 tablet by mouth once dailyLisinopril 10 mg tablet Active 10 MG PO Daily August 14, 2024 12:00amStart: 96-55-9890niko 5 mg by mouth once dailyLisinopril Active 5 MG PO Daily April 13, 2022 11:00pmStart: 04-14-2022 End: 74-24-1351wpnt 2 tablets by mouth once dailyLisinopril 5 mg Tablet Discontinued 10 MG PO Daily April 13, 2022 11:00pm August 14, 2024 3:16pm Start: 01-72-9419akzn 10 mg by mouth once dailyLisinopril Active 10 MG PO Daily April 14, 2022 12:00amStart: 08-30-2018 End: 72-95-1156ujrx 1 tablet by mouth once dailytake 1 tablet (10 mg) by oral route once daily for 90 daysStart: 06-03-2015 End: 61-03-8436pukz 1 tablet by mouth once dailytake 1 tablet (10 mg) by oral route once dailymetFORMIN hydrochloride 500 mg oral tablet (20 sources)BiguanideStart: 11-26-2024 End: 73-19-6464xfje 1 tablet by mouth three times dailyTAKE 1 TABLET BY MOUTH THREE TIMES DAILYStart: 04-14-2022 End: 73-23-2576ptmv 1 tablet by mouth three times dailyMetformin 500 mg Tablet Active 500 MG PO Three times daily April 13, 2022 11:00pmStart: 09-03-2021 take 1 tablet by mouth three times dailymetformin 500 mg oral tablet 09/03/2021 TAKE ONE TABLET BY MOUTH THREE TIMES DAILYStart: 09-08-2020 End: 40-41-6111foui 1 tablet by mouth three times dailymetformin 500 mg oral tablet 09/08/2020 TAKE ONE TABLET BY MOUTH THREE TIMES DAILYStart: 38-14-1436hzlh 1 tablet by mouth three times dailymetformin 500 mg oral tablet 06/11/2019 TAKE ONE TABLET BY MOUTH THREE TIMES DAILYStart: 08-26-2015 End: 47-28-0788fpws 1 tablet by mouth twice daily at dinnertake 1 tablet (500 mg) by oral route 2 times per day with morning and evening mealsmetFORMIN (Glucophage) 500 MG tablet every 8 (eight) hours Active2 ml metoclopramide 5 mg/ml prefilled syringe (1 source)Dopamine-2 Receptor AntagonistStart: 12-28-2019 End: 40-16-2479ktzkpszonodijm (REGLAN) injection 10 mgomega-3 acid ethyl esters (mcfp) 1200 mg oral capsule (6 sources)Model-3 Fatty Acids (FISH OIL) 1200 MG CAPS Take by mouth daily 0 ActiveOmega-3 Fatty Acids (FISH OIL) 1200 MG CAPS (1 source)Model-3 Fatty Acids (FISH OIL) 1200 MG CAPS Take by mouth daily 0 Active2 ml ondansetron 2 mg/ml injection (1 source)Serotonin-3 Receptor AntagonistStart: 12-28-2019 End: 96-54-7194gyxbhidthvj (ZOFRAN) injection 4 mgoxyCODONE hydrochloride 5 mg oral tablet (2 sources)Opioid AgonistStart: 12-28-2019 End: 36-69-8799fpfYQTLYU (ROXICODONE) immediate release tablet 5 mgpyridoxine hydrochloride 25 mg oral tablet (3 sources)Start: 51-94-8766dlwh 1 tablet by mouth once dailyPyridoxine (Vitamin B6) 25 mg tablet Active 25 MG PO Daily December 13, 2023 11:00pmsildenafil 100 mg oral tablet (20 sources)Phosphodiesterase 5 InhibitorStart: 63-87-8268Yttkkbegon 100 mg tablet Active 100 MG PO As Directed as needed for sexual activity December 02, 2023 11:00pmStart: 52-82-3061Rhfaxldels Active MG TABLET December 03, 2023 12:00am Start: 10-28-2023 End: 13-57-3980ykzc 1 tablet by mouth once daily as neededtake 1 tablet (100 mg) by oral route once daily as needed approximately 1 hour before sexual activity for 30 daysStart: 09-03-2021 End: 24-51-1418clwq 1 tablet by mouth once daily as neededsildenafil 100 mg oral tablet 07/27/2022 10/25/2022 take 1 tablet (100 mg) by oral route once daily as needed approximately 1 hour before sexual activity for 90 daysStart: 02-21-2020 End: 29-65-5168zhyu 1 tablet by mouth once daily as neededsildenafil 100 mg oral tablet 02/21/2020 02/15/2021 take 1 tablet (100 mg) by oral route once daily as needed approximately 1 hour before sexual activity for 90 days3 ml sodium chloride 9 mg/ml injection (2 sources)Start: 65-25-8517lwksbm chloride flush 0.9 % injection 10 mLSyringe, Disposable, 3 ML misc (2 sources)Start: 04-08-2025 End: 63-54-9384Jjdfdea, Disposable, 3 ML misc 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 1 Syringe every 14 (fourteen) days 10 each 1 04/08/2025 07/07/2025 Active1 ml testosterone cypionate 200 mg/ml injection (2 sources)AndrogenStart: 04-08-2025 End: 52-80-0078xsbttbausrrk cypionate (Depo-Testosterone) 200 MG/ML injection 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 Inject 1 mL (200 mg) into the shoulder, thigh, or buttocks every 14 (fourteen) days 6 mL 04/08/2025 07/07/2025 Active vitamin b6 50 mg oral tablet (20 sources)Start: 03-21-2024 End: 77-50-2848uerh 1 tablet by mouth once dailyTake 1 tablet by mouth once dailyStart: 11-06-2021 End: 92-55-3508jsjr 1 tablet by mouth once dailyTake 1 tablet by mouth once dailyStart: 12-27-2019 End: 82-12-1714kmek 1 tablet by mouth once dailytake 1 tablet by oral route dailyStart: 12-12-2018 End: 89-68-2241tumg 1 tablet by mouth once dailytake 1 tablet by oral route dailytake 1 tablet by mouth once dailytake 1 tablet by oral route daily Completed/Discontinued Medications MedicationDrug Class(es)DatesSig (Normalized)Sig (Original)acetaminophen 325 mg / HYDROcodone bitartrate 5 mg oral tablet (20 sources)Opioid AgonistStart: 07-13-2017 End: 31-66-2225fcea 1 tablet by mouth every six hours as needed for paintake 1 tablet by oral route every 6 hours as needed for painacetaminophen 325 mg / oxyCODONE hydrochloride 5 mg oral tablet (1 source)Opioid AgonistStart: 12-28-2019 End: 99-23-9308kvvj 1-2 tablets by mouth every four to six hours as needed for painoxyCODONE-acetaminophen (PERCOCET) 5-325 MG per tablet Indications: 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, initial encounter Take 1-2 tablets by mouth every 4-6 hours as needed for Pain for up to 7 days. 56 tablet 0 12/28/2019 01/04/2020 [id number] 200 actuat albuterol 0.09 mg/actuat metered dose inhaler (20 sources)beta2-Adrenergic AgonistStart: 73-72-1707hhln 1 puff(s) by mouth every six hours as neededINHALE 1 PUFF BY MOUTH EVERY 6 HOURS NEEDEDStart: 64-20-4634Gyfuisqci Sulfate 90 mcg/actuation HFA aerosol inhaler Active 1 INH INHALATION Every 6 hours as needed for shortness of breath or wheezing December 02, 2023 11:00pmStart: 33-80-2409Sgziqkuvw Sulfate Active INHALATION December 03, 2023 12:00amStart: 77-30-8117awfm 1 puff(s) by mouth every six hours as neededINHALE 1 PUFF BY MOUTH EVERY 6 HOURS NEEDEDStart: 90-31-7815xbbo 1 puff(s) by mouth every six hours as neededVentolin HFA 90 mcg/actuation aerosol inhaler 05/11/2022 INHALE 1 PUFF BY MOUTH EVERY 6 HOURS NEEDEDStart: 78-47-9022cuab 1 puff(s) by mouth every six hours as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 unspecified]Onset: 06-91-7685EdsbelgUtjhdde obstructive pulmonary disease and bronchiectasis (20 sources)Other emphysema; Translations: [Pulmonary emphysema]Onset: 42-94-1112MyhiphbFdbyqfg ulcer of skin (20 sources)Non-pressure chronic ulcer of other part of right foot with unspecified severity; Translations: [Non-pressure chronic ulcer of other part of right foot with fat layer exposed]Onset: 51-10-1602XuxhubnJxwtxltz mellitus with complications (20 sources)Diabetes with neurological manifestations, type II or unspecified type, uncontrolled; Translations:[Diabetes with peripheral circulatory disorders, type II or unspecified type, uncontrolled]Onset: ChronicDiabetes mellitus without complication (20 sources)Diabetes mellitus without mention of complication, type II or unspecified type, not stated as uncontrolled; Translations: [Type 2 diabetes mellitus]Onset: 520157-58-9547ZvawozbQgiximwim of lipid metabolism (20 sources)Pure hyperglyceridemia; Translations: [Anu type IV hyperlipoproteinemia ]Onset: 683091-80-8197UlfwdirVhzdplvach disorders (20 sources)Gastro-esophageal reflux disease without esophagitisOnset: 26-56-0012KaiqemoYohgpkfkw hypertension (20 sources)Benign essential hypertension; Translations: [Malignant essential hypertension]Onset: 39-40-4485HoudrfyDeutgcbt cause codes: Fall (20 sources)Unspecified fall; Translations: [Fall]Onset: 53-01-4940Ietqfjbxbizd with complications and secondary hypertension (20 sources)Other unspecified secondary hypertension; Translations: [Hypertension secondary to endocrine disorders]Onset: 46-71-2078BksypwsAnbllde and fatigue (20 sources)Other malaise and fatigue; Translations: [Other fatigue]Onset: 87-57-6743HdcghfguRtkd disorders (20 sources)Depressive disorder, not elsewhere classified; Translations: [Depressive disorder]Onset: 26-11-6590KgpmfrlNlflf aftercare (3 sources)Surgical follow-up; Translations: [Encounter for removal of sutures] 77-49-4280BfnazyycDfqdc circulatory disease (20 sources)Peripheral vascular disease; Translations: [Other specified peripheral vascular diseases]Onset: 34-07-8413UrfxlvzLhbyd circulatory disease (20 sources)Other specified peripheral vascular diseasesOnset: 74-72-7405Tvmprem Other endocrine disorders (2 sources)Male hypogonadism; Translations: [Testicular hypofunction]04-08-2025 ChronicOther liver diseases (20 sources)Fatty (change of) liver, not elsewhere classifiedOnset: 01-15-2022 ChronicOther liver diseases (12 sources)Steatosis of liver; Translations: [Other chronic nonalcoholic liver disease]Onset: 23-45-1417WnkzcskIsfvx lower respiratory disease (2 sources)Dyspnea; Translations: [Shortness of breath]14-16-5566CtmrcrtuBvzmn male genital disorders (1 source)Impotence of organic originOnset: 09-20-9343PxnmzirIesjd male genital disorders (20 sources)Erectile dysfunction due to diseases classified elsewhereOnset: 10-62-5662XyvpfmlAkwrf nervous system disorders (20 sources)Disorder of the peripheral nervous system; Translations: [Unspecified hereditary and idiopathic peripheral neuropathy]Onset: 04-05-2017 ChronicOther nervous system disorders (20 sources)Unspecified hereditary and idiopathic peripheral neuropathyOnset: 89-87-6575AhgirvyEjlov nervous system disorders (20 sources)Mononeuritis of unspecified siteOnset: 59-17-4835QiciusfTytfa nervous system disorders (20 sources)Polyneuropathy in diseases classified elsewhereOnset: 03-31-2016 ChronicOther nervous system disorders (20 sources)Polyneuropathy, unspecified; Translations: [Mononeuritis of unspecified site]Onset: 049581-76-5019BsmxrasPobwq nervous system disorders (8 sources)Neuropathy; Translations: [Polyneuropathy, unspecified]04-14-2022 ChronicOther non-traumatic joint disorders (1 source)Shoulder pain; Translations: [Acute pain of right shoulder]Episodic Other non-traumatic joint disorders (1 source)Pain in right knee; Translations: [Right knee pain, unspecified chronicity]Other nutritional; endocrine; and metabolic disorders (20 sources)Obesity, unspecifiedOnset: 33-94-9928WxlxldvUtuvh nutritional; endocrine; and metabolic disorders (20 sources)Morbid obesityOnset: 18-15-3284IekeqmrMcwsa nutritional; endocrine; and metabolic disorders (20 sources)Obesity, unspecifiedOnset: 33-16-8314HrawqetIkumw nutritional; endocrine; and metabolic disorders (20 sources)Morbid (severe) obesity due to excess caloriesOnset: 06-03-2015 ChronicOther nutritional; endocrine; and metabolic disorders (20 sources)HypercalcemiaOnset: 49-52-8058SvlkzzbFxlrl nutritional; endocrine; and metabolic disorders (2 sources)Obesity caused by energy imbalance; Translations: [Class 1 obesity due to excess calories without serious comorbidity with body mass index (BMI) of 34.0 to 34.9 in adult]98-30-2824GkcxwibDacpk upper respiratory disease (20 sources)Allergic rhinitis, unspecifiedOnset: 77-33-9434QtiigpeTtmsq upper respiratory disease (20 sources)Chronic rhinitisOnset: 17-88-9928NgvfptdXcxbq upper respiratory infections (20 sources)Chronic frontal sinusitisOnset: 51-99-8657ScjzvfsYbakqicr codes; unclassified (19 sources)Obstructive sleep apnea (adult)(pediatric)Onset: 42-83-8403Uqdwhqa Residual codes; unclassified (20 sources)Obstructive sleep apnea (adult) (pediatric)Onset: 58-06-3961Sgdrlib Residual codes; unclassified (20 sources)Tobacco use; Translations: [Tobacco use disorder]Onset: 08-26-2015 79-32-9544BomxetwiWjmnhdfo codes; unclassified (8 sources)Tobacco use and exposure - finding; Translations: [Tobacco use] 52-82-2664VodtgoubKxvxvelu codes; unclassified (2 sources)Reduced libido; Translations: [Decreased libido]24-59-2198Bqcpmhdx Sprains and strains (5 sources)Traumatic rupture of rotator cuff; Translations: [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, initial encounter]Onset: EpisodicSubstance-related disorders (20 sources)Tobacco use disorder; Translations: [Nicotine dependence, unspecified, uncomplicated]Onset: 42-48-0539Urdgfml Past or Other Problems Problem ClassificationProblemDateDocumented DateEpisodic/ChronicAbdominal hernia (20 sources)Umbilical hernia without mention of obstruction or gangrene; Translations: [Umbilical hernia]Onset: 91-22-3641XojdhmeoTiukspbwvc associated with dizziness or vertigo (20 sources)Dizziness and giddiness; Translations: [Dizziness and giddiness] Onset: 71-95-0122OvkjdmzqRbffdygp mellitus with complications (20 sources)Type 2 diabetes mellitus with other diabetic neurological complication; Translations: [Diabetes mellitus due to underlying condition with diabetic neuropathic arthropathy]Onset: 06-03-2015E Codes: Fall (20 sources)Fall; Translations: [Unspecified fall]Onset: 48-97-0422SktweamiNjpzg and electrolyte disorders (20 sources)Hypopotassemia; Translations: [Hypokalemia]Onset: 67-32-2222Tqwbsdax Fracture of lower limb (20 sources)Other fracture of right lower leg, initial encounter for closed fracture; Translations: [Fracture of unspecified metatarsal bone(s), right foot, initial encounter for closed fracture]Onset: 378228-20-4342Ecojbkuz Comment on above:Problem List clean-up per request of Phys. EHR Cmte Immunizations and screening for infectious disease (20 sources)Need for prophylactic vaccination and inoculation against influenza; Translations: [Encounter for immunization]Onset: 86-30-7743SludbbzjVora disorders (20 sources)Major depressive disorder, single episode, unspecified; Translations: [Mood disorders]Onset: 45-51-5435Waznqji (20 sources)Onychomycosis due to dermatophyte ; Translations: [Dermatophytosis of nail]Onset: 74-40-0035VqcnjyviXxkmvdfqq of unspecified nature or uncertain behavior (20 sources)Neoplasm of uncertain behavior of skin; Translations: [Neoplasm of uncertain behavior of skin]Onset: 52-51-3374XvqymoxrFqizphnvxuu chest pain (20 sources)Chest pain, unspecified; Translations: [Chest pain, unspecified] Onset: 73-13-1839AgehlmssLexm wounds of extremities (20 sources)Unspecified open wound of unspecified toe(s) with damage to nail, initial encounter; Translations: [Unspecified open wound, right foot, initial encounter]Onset: 01-49-9757WigqqjjuUyop wounds of head; neck; and trunk (20 sources)Laceration without foreign body of other part of head, initial encounter; Translations: [Laceration- injury]Onset: 218984-93-4857Edlmtuxb Other aftercare (13 sources)Encounter for removal of suturesOnset: 31-36-8694BdzwjeayYvsmc aftercare (20 sources)Encounter for removal of suturesOnset: 72-72-2294BdahqjgzXcezl and unspecified benign neoplasm (19 sources)Benign neoplasm of skin of upper limb, including shoulderOnset: 04-70-3632BgiexqiyQtkgt and unspecified benign neoplasm (20 sources)Other benign neoplasm of skin of left upper limb, including shoulder Onset: 37-86-0462BlukzhjiWrdzk connective tissue disease (8 sources)Adhesive capsulitis of shoulderOnset: 38-36-3287UpbxheaxBsrwi connective tissue disease (20 sources)Adhesive capsulitis of unspecified shoulderOnset: 05-82-5159Hnqkzhzh Other connective tissue disease (20 sources)Pain in left footOnset: 55-46-5223SoxdfvfdPiter connective tissue disease (20 sources)Foot pain; Translations: [Pain in limb]Onset: 27-97-2101Mlzyhncq Other connective tissue disease (20 sources)Neuralgia and neuritis, unspecifiedOnset: 52-19-9771QokpflsxNqnkr connective tissue disease (20 sources)Pain in right foot; Translations: [PAIN IN RIGHT FOOT]Onset: 95-61-8546CwupqbidZgdww endocrine disorders (20 sources)Endocrine disorder, unspecifiedOnset: 30-90-6349IncinjsnSaoca fractures (19 sources)Late effect of fracture of spine and trunk without mention of spinal cord lesionOnset: 13-59-2801BziokrqmOluvl fractures (20 sources)Multiple fractures of ribs, right side, sequelaOnset: 06-27-2017 EpisodicOther injuries and conditions due to external causes (19 sources)Open wound of face, unspecified site, without mention of complicationOnset: 06-28-5780YmiurbbnBpdbv lower respiratory disease (20 sources)Shortness of breathOnset: 95-59-7942GugoldvoFrxug lower respiratory disease (20 sources)Other respiratory abnormalitiesOnset: 26-69-6616TgractwnZwmfo lower respiratory disease (19 sources)Respiratory abnormality, unspecifiedOnset: 65-23-1655CclhhsnoKcrsw lower respiratory disease (20 sources)Shortness of breath; Translations: [Shortness of breath]Onset: 38-77-4046DptdxazfRlcfc lower respiratory disease (20 sources)Other forms of dyspneaOnset: 80-55-8325ZdjwkmbaFxzyz lower respiratory disease (20 sources)SnoringOnset: 73-96-2892RlmsypohGrldc lower respiratory disease (20 sources)Unspecified abnormalities of breathingOnset: 76-65-1230HucntvmtQboaz nervous system disorders (14 sources)Disturbance of skin sensationOnset: 47-08-3746NybiigpvPcgmh nervous system disorders (20 sources)Other disturbances of skin sensationOnset: 29-87-4755XsjyvwxhUlmzm non-traumatic joint disorders (20 sources)Pain in right ankle and joints of right foot; Translations: [PAIN IN RIGHT ANKLE]Onset: 60-29-9813EjpfwarqBknda screening for suspected conditions (not mental disorders or infectious disease) (20 sources)Encounter for screening for malignant neoplasm of prostateOnset: 70-68-5080WszqgfvoUghmz skin disorders (20 sources)Sebaceous cystOnset: 56-14-0994YtscikolCcsul skin disorders (20 sources)Unspecified hypertrophic and atrophic conditions of skinOnset: 80-72-9507XniqffawXzsox skin disorders (20 sources)Follicular cyst of the skin and subcutaneous tissue, unspecified Onset: 76-30-8540FmsznkufXwvsv skin disorders (20 sources)Other hypertrophic disorders of the skinOnset: 72-11-0007Nuqqlell Other skin disorders (20 sources)Epidermal cystOnset: 19-07-9858NiwsblvtYbxfq skin disorders (20 sources)Sebaceous cystOnset: 58-76-8637SijqakseZnkul skin disorders (20 sources)Foot callus; Translations: [Corns and callosities]Onset: 09-18-2021 EpisodicOther skin disorders (20 sources)Corns and callositiesOnset: 84-98-4945XukdmvfhQowqg skin disorders (20 sources)Personal history of diseases of the skin and subcutaneous tissue Onset: 88-93-7147AvxykosaZitbalwl codes; unclassified (19 sources)FlushingOnset: 52-64-7035GeziysyiNxyhdcmm codes; unclassified (15 sources)Other plastic surgery for unacceptable cosmetic appearanceOnset: 94-42-3058XqfbpwzpHgumlshl codes; unclassified (20 sources)FlushingOnset: 86-55-3893DmoeowipNfmutxyq codes; unclassified (20 sources)Encounter for cosmetic surgeryOnset: 64-83-5385LthfndcxMfkwvyhk codes; unclassified (20 sources)Localized edemaOnset: 84-86-5881XklzcmgcEukzxzos codes; unclassified (4 sources)Other specified health statusOnset: 56-27-4375XeidtyhiFklk and subcutaneous tissue infections (20 sources)Abscess of toe of left foot; Translations: [Cellulitis and abscess of toe, unspecified]Onset: 75-33-9445BizoqgurIwwtoitgcgg; intervertebral disc disorders; other back problems (20 sources)Lumbago; Translations: [Low back pain]Onset: 64-16-8684Kygjrgfh Unclassified (20 sources)Anxiety state, unspecifiedOnset: 15-87-3669Osemekfqkzok (1 source)Nondependent abuse of drugs; alcohol abuse; unspecifiedOnset: 76-10-2140Qgruj infection (20 sources)Viral infection, unspecifiedOnset: 69-27-8228Wxabouon Results Test NameValueInterpretationReference RangeFacilityX-ray reportOrdered By: Dionte Torres on 84-13-7500Rkqfm reportPROM[facility] Main [address] [address] XRay Report Signed Patient: Geremias Melchor MR#: [id number] : 1965 Acct:[id number] Age/Sex: 58 / M ADM Date: 5 Loc: RT Room: Type: [facility] CLI Attending Dr: Ayanna Brooks OIL AND GAS EXPLORATION TECHNICIAN-C Copies to: BETH Mccabe~ Ordering Provider: [...] Torres Jr., D.O.07/19/2024 4:33 PM Dictation Location: [place] [address] Transcribed By: [facility] 07/19/24 1633 Dictated By: Dionte Torres Jr, DO 07/19/24 1633 Signed By: 07/19/[address] [facility]*on 46-95-4658GA chest 2V*[facility] Main [address] [address] XRay Report Signed Patient: Geremias Melchor MR#: [id number] : 1965 Acct:[id number] Age/Sex: 58 / M ADM Date: 07/19/24 Loc: RT Room: Type: [facility] CLI Attending Dr: Ayanna Brooks OIL AND GAS EXPLORATION TECHNICIAN-C Copies to: BETH Mccabe Ordering Provider: [...] Torres Jr., D.O.07/19/2024 4:33 PM Dictation Location: [facility]--19 Transcribed By: [facility] 07/19/24 1633 Dictated By: Dionte Torres Jr, DO 07/19/24 1633 Signed By: 07/19/24 1633[facility] Phys[facility] GroupCardiology Office/Clinic Noteon 72-48-5346Wwubyivhjb Office/Clinic NoteChief Complaint Follow-up visit for hypertension, [...] mildly increased. Working t (more content not included)...[facility] Transthoracicon 53-86-0523Sffqddm Echocardiogram TransthoracicTRANSTHORACIC ECHOCARDIOGRAM Study Date/Time: Jan 11 2024 3:48PM BP: 148 / 90 HR: 88 bpm HT/WT: 180.3 cm (71 in) / 108.9 kg (239.5 lb) BSA/BMI: 2.28 m^2 / 33.5 kg/m^2 ORDERING PROVIDER: Ayanna Brooks INTERPRETING PHYSICIAN: Bo Pearce DO APARTMENT MAINTENANCE MANAGER: Vonda Paige RD, [facility] INDICATIONS: Dyspnea. CONCLUSIONS SUMMARY: 1. Left ventricle: [...] 01/13/2024 7:32 am Signed (more content not included)...NormalLima Memorial HospitalComment on above:Order Comment: flacaLaboratory - Chemistry and Chemistry - challengeon 27-29-2107Goxxbkt (U) [Mass/Vol]21.2Invalid Interpretation Code<17.0[facility] BendITADSecurity [facility] Albumin [Mass/Vol]4.60 g/dLInvalid Interpretation Code 3.7-5.0[employer] [facility] Albumin/Creatinine DL <= 20 mg/L (U) [Mass ratio]43.1 mg/gInvalid Interpretation Code0.0-30.0[employer] [facility] Albumin/Globulin [Mass ratio]1.3 {ratio}Invalid Interpretation Code1.0-2.4Bglenbeigh hospital [employer] [facility] ALP [Catalytic activity/Vol]83.0 U/LInvalid Interpretation Fcsp23-262QeexfavhfTouchmedia ALT [Catalytic activity/Vol]51.0 U/LInvalid Interpretation Code0-50[place]Touch[facility] Anion gap [Moles/Vol]14 mmol/LInvalid Interpretation Cnvw14-63Exmxljnzb [employer] [facility] AST [Catalytic activity/Vol]41.0 U/LInvalid Interpretation Code0-40[employer] [facility] Bilirubin [Mass/Vol]0.30 mg/dLInvalid Interpretation Code0.0-1.0[employer] [facility] Bilirubin Ql (U)NegativeInvalid Interpretation Code NegativeWest BendITADSecurity [facility] Calcium [Mass/Vol]10.40 mg/dLInvalid Interpretation Code8.5-10.8Bglenbeigh hospital [employer] [facility] Chloride [Moles/Vol]102.0 mmol/LInvalid Interpretation Mvtc644-395Mhuhzwgkv [employer] [facility] Cholesterol [Mass/Vol]236.0 mg/dLInvalid Interpretation Code0-200[facility]ITAD[facility] Cholesterol in HDL [Mass/Vol]53.0 mg/dLInvalid Interpretation Lbug42-957UeqqfwxxmITADSecurity [facility] Cholesterol in LDL [Mass/Vol]146.0 mg/dLInvalid Interpretation Code0-130[employer] [facility] Cholesterol in VLDL [Mass/Vol]37.0 mg/dLInvalid Interpretation Code0-39[facility] Cholesterol.total/Cholesterol in HDL [Mass ratio]4 {ratio}Invalid Interpretation CodeWest BendITADSecurity [facility] CO2 [Moles/Vol]25.0 mmol/LInvalid Interpretation Code 23-30[place] [facility] Creatinine (U) [Mass/Vol]49.20 mg/dLInvalid Interpretation CodeNot Estab. mg/dLBglenbeigh hospital [employer] Creatinine [Mass/Vol]1.10 mg/dLInvalid Interpretation Code0.5-1.5Bformerly [facility] psychiatric hospitalStrongSteam Glucose [Mass/Vol]159.0 mg/dLInvalid Interpretation Eeld75-275CpezdrwdoTouchmedia Ketones Ql (U)NegativeInvalid Interpretation Code NegativeWest BendTouchmedia pH (U)6 [pH]Invalid Interpretation Code5.0-9.0[facility]IT[facility] Potassium [Moles/Vol]4.40 mmol/LInvalid Interpretation Code3.5-5.3Bformerly [facility] seattle psychiatric hospitalVascular Magnetics [facility] Protein [Mass/Vol]8.20 g/dLInvalid Interpretation Code 6.3-7.9Bformerly [facility] hospitalStrongSteam Sodium [Moles/Vol]137.0 mmol/LInvalid Interpretation Fbsw530-367PwwklejyyITADSecurity [facility] Specific gravity (U) [Rel density]1.010Invalid Interpretation Code1.003-1.030[place] Triglyceride [Mass/Vol]184.0 mg/dLInvalid Interpretation Viyb13-444FwstdasvqTouchmedia Urea nitrogen [Mass/Vol]16.0 mg/dLInvalid Interpretation Code7-25[facility] BendITAD[facility] Urea nitrogen/Creatinine [Mass ratio]15 mg/mgInvalid Interpretation Code6-20[place] BendTouch[facility] Urobilinogen (U) [Mass/Vol]normalInvalid Interpretation CodenormalWest BendITADSecurity [facility] Laboratory - Hematology and Cell countson 11-14-2023 Erythrocyte distribution width (RBC) [Ratio]12.60 %Invalid Interpretation Code 11.5-15.5Bamery hospital and clinicIgY [employer] HbA1c (Bld) [Mass fraction]6.80 %Invalid Interpretation Code4.3-6.3Bglenbeigh hospital [employer] [facility] Hematocrit (Bld) [Volume fraction]46.80 %Invalid Interpretation Code37.8-51.0[place] BendITAD[facility] Hemoglobin (Bld) [Mass/Vol]15.70 g/dLInvalid Interpretation Code12.6-17.0[place]ITADSecurity [facility] Hemoglobin Ql (U)NegativeInvalid Interpretation Code NegativeTrinity Health System MAD Incub[employer] [facility] MCH (RBC) [Entitic mass]32.80 pgInvalid Interpretation Code25.7-33.8Bglenbeigh hospital [employer] [facility] MCHC (RBC) [Mass/Vol]33.50 g/dLInvalid Interpretation Code32.0-36.0[place] [facility] MCV (RBC) [Entitic vol]97.70 fLInvalid Interpretation Code81.0-100.2Bformerly [facility] psychiatric hospitalVascular Magnetics [facility] Platelet mean volume (Bld) [Entitic vol]9.70 fLInvalid Interpretation Code8.3-11.5Bformerly [facility] psychiatric hospitalVascular Magnetics [facility] Platelets (Bld) [#/Vol]240.0 10*3/uLInvalid Interpretation Nwcx608-207CrkvlzkaqITADSecurity [facility] RBC (Bld) [#/Vol]4.790 10*6/uLInvalid Interpretation Code4.34-5.61[place] BendIT[facility] WBC (Bld) [#/Vol]6.90 10*3/uLInvalid Interpretation Code3.9-10.3Bformerly [facility] psychiatric hospitalVascular Magnetics [facility] Laboratory - Specimen informationon 77-05-1816Homiknz (U)ClearInvalid Interpretation CodeClearBlanmercy medical center merced [facility] [employer] Color (U)yellowInvalid Interpretation Codeyellow [facility] [place] [facility] - Urinalysison 97-71-1354Xnacfkn Test strip (U) [Mass/Vol]4+Invalid Interpretation CodeNegativeWest BendTouchmedia Leukocyte esterase Test strip Ql (U)TraceInvalid Interpretation CodeNegativeWest BendTouchmedia Nitrite Ql (U)NegativeInvalid Interpretation Code NegativeWest BendTouchmedia Protein Ql (U)1+Invalid Interpretation CodeNegative MonroeQuaam No Panel Informationon 50-20-5645193.0 mg/dLInvalid Interpretation CodeCronote 77Invalid Interpretation CodeWest BendTouchmedia No Panel Informationon 93-66-8538Aihrnxy smoking status Current Tobacco UserInvalid Interpretation CodeCronote Diabetic Retinal Eye ExamInvalid Interpretation Code Indicee Physician Orderon 45-63-3305Xtzrrpqbg Order [id number]#1.00TIFFNormalFisher Saint Luke InstituteLaboratory - Chemistry and Chemistry - challengeon 15-96-0636Ziixzij (U) [Mass/Vol]< 12.0Invalid Interpretation Code< 17.0 ug/mLCronote Albumin [Mass/Vol]4.50 g/dLInvalid Interpretation Code 3.7-5.0C[employer] Albumin/Globulin [Mass ratio]1.4 {ratio}Invalid Interpretation Code1.0-2.4Bformerly [facility] psychiatric hospitalVascular Magnetics [facility] ALP [Catalytic activity/Vol]93.0 U/LInvalid Interpretation Hlgy12-165HjpkhucadTouchmedia ALT [Catalytic activity/Vol]62.0 U/LInvalid Interpretation Code0-50[place] BendTouch[facility] Anion gap [Moles/Vol]16 mmol/LInvalid Interpretation Rkqm20-17MxqrvhcwwTouchmedia AST [Catalytic activity/Vol]46.0 U/LInvalid Interpretation Code0-40[place] Bilirubin [Mass/Vol]0.40 mg/dLInvalid Interpretation Code0.0-1.0[place] Bilirubin Ql (U)NegativeInvalid Interpretation Code NegativeWest BendTouchmedia Calcium [Mass/Vol]10.20 mg/dLInvalid Interpretation Code8.5-10.8Bformerly [facility] hospitalStrongSteam Chloride [Moles/Vol]99.0 mmol/LInvalid Interpretation Mtqs509-044VblebpzlwTouchmedia Cholesterol [Mass/Vol]212.0 mg/dLInvalid Interpretation Code0-200[place] Cholesterol in HDL [Mass/Vol]49.0 mg/dLInvalid Interpretation Dsst42-070LwmvndbzgCronote Cholesterol in LDL [Mass/Vol]135.0 mg/dLInvalid Interpretation Code0-130[place]Touch[facility] Cholesterol in VLDL [Mass/Vol]28.0 mg/dLInvalid Interpretation Code0-39Cron[employer] Cholesterol.total/Cholesterol in HDL [Mass ratio]4 {ratio}Invalid Interpretation CodeWest BendITADSecurity [facility] CO2 [Moles/Vol]26.0 mmol/LInvalid Interpretation Code 23-30[facility] BendITADSecurity [facility] Creatinine (U) [Mass/Vol]75.30 mg/dLInvalid Interpretation CodeNot Estab. mg/dLBglenbeigh hospital [employer] [facility] Creatinine [Mass/Vol]1.10 mg/dLInvalid Interpretation Code0.5-1.5Bglenbeigh hospital [employer] [facility] Glucose [Mass/Vol]111.0 mg/dLInvalid Interpretation Ukru99-092LjuedehgjITADSecurity [facility] Ketones Ql (U)NegativeInvalid Interpretation Code NegativeWest BendITADSecurity [facility] pH (U)6 [pH]Invalid Interpretation Code5.0-9.0[facility] BendITADSecurity [facility] Potassium [Moles/Vol]4.70 mmol/LInvalid Interpretation Code3.5-5.3Bformerly [facility] hospitalStrong[facility]am Prostate specific Ag [Mass/Vol]0.94 ng/mLInvalid Interpretation Code0.00-4.00West BendITADSecurity [facility] Protein [Mass/Vol]7.80 g/dLInvalid Interpretation Code 6.3-7.9Bformerly [facility] hospitalVascular Magn[facility] Sodium [Moles/Vol]136.0 mmol/LInvalid Interpretation Vhqz772-474VdwsacltpTouchmedia Specific gravity (U) [Rel density]1.015Invalid Interpretation Code1.003-1.030[place] BendTouchmedia Triglyceride [Mass/Vol]141.0 mg/dLInvalid Interpretation Zjev97-768HjcfsxqmmTouchmedia Urea nitrogen [Mass/Vol]20.0 mg/dLInvalid Interpretation Code7-25[facility] BendTouchmedia Urea nitrogen/Creatinine [Mass ratio]18 mg/mgInvalid Interpretation Code6-20[facility] BendTouch[facility] Urobilinogen (U) [Mass/Vol]normalInvalid Interpretation CodenormalWest BendITADSecurity [facility] Laboratory - Hematology and Cell countson 01-25-2023 Erythrocyte distribution width (RBC) [Ratio]12.10 %Invalid Interpretation Code 11.5-15.5[facility] [employer] HbA1c (Bld) [Mass fraction]6.60 %Invalid Interpretation Code4.3-6.3[facility] [employer] Hematocrit (Bld) [Volume fraction]43.70 %Invalid Interpretation Code37.8-51.0[facility] Bend[facility] Hemoglobin (Bld) [Mass/Vol]14.90 g/dLInvalid Interpretation Code12.6-17.0[place] [facility] Hemoglobin Ql (U)NegativeInvalid Interpretation Code NegativeWest BendTouchmedia MCH (RBC) [Entitic mass]32.50 pgInvalid Interpretation Code25.7-33.8Bformerly [facility] hospitalStrong[facility]am MCHC (RBC) [Mass/Vol]34.10 g/dLInvalid Interpretation Code32.0-36.0[place] BendTouchmedia MCV (RBC) [Entitic vol]95.40 fLInvalid Interpretation Code81.0-100.2Bamery hospital and clinicIgY [employer] Platelet mean volume (Bld) [Entitic vol]9.20 fLInvalid Interpretation Code8.3-11.5Bformerly [facility] hospitalStrongSteam Platelets (Bld) [#/Vol]225.0 10*3/uLInvalid Interpretation Owar150-238Lzmrqxejo [place] [facility] RBC (Bld) [#/Vol]4.580 10*6/uLInvalid Interpretation Code4.34-5.61[facility] WBC (Bld) [#/Vol]8.0 10*3/uLInvalid Interpretation Code 3.9-10.3BK[facility] Laboratory - Specimen informationon 65-26-6005Dbyjbte (U)ClearInvalid Interpretation CodeClearBKettering Health [facility] Color (U)yellowInvalid Interpretation Codeyellow [facility] Laboratory - Urinalysison 67-46-6704Pczpwrk Test strip (U) [Mass/Vol]4+Invalid Interpretation CodeNegativeTrinity Health System [facility] Leukocyte esterase Test strip Ql (U)NegativeInvalid Interpretation CodeNegativeTrinity Health System [facility] Nitrite Ql (U)NegativeInvalid Interpretation Code NegativeTrinity Health System [facility] Protein Ql (U)NegativeInvalid Interpretation Code NegativeTrinity Health System [facility] No Panel Informationon [id number] Interpretation CodeTrinity Health System [facility] 143.0 mg/dLInvalid Interpretation CodeColgate [employer] [facility] No Panel Informationon 47-12-4574Mizpfue smoking status Current Tobacco UserInvalid Interpretation CodeWest BendITADSecurity [facility] Laboratory - Chemistry and Chemistry - challengeon [id number]-dyndjjxdoaxpaj D3 [Mass/Vol]26.8 ng/mLInvalid Interpretation Code 30.0-100.0[place] BendTouch[facility] Albumin (U) [Mass/Vol]< 12.0Invalid Interpretation Code < 17.0 ug/mLWest BendTouchmedia Albumin [Mass/Vol]4.50 g/dLInvalid Interpretation Code 3.7-5.0[place] Albumin/Globulin [Mass ratio]1.3 {ratio}Invalid Interpretation Code1.0-2.4Bformerly [facility] hospitalStrong[facility]am ALP [Catalytic activity/Vol]74.0 U/LInvalid Interpretation Cfze05-860HmxkthwniTouchmedia ALT [Catalytic activity/Vol]24.0 U/LInvalid Interpretation Code0-50[place] BendTouch[facility] Anion gap [Moles/Vol]16 mmol/LInvalid Interpretation Kicv92-07XmuoqmgpwTouchmedia AST [Catalytic activity/Vol]14.0 U/LInvalid Interpretation Code0-40[place]Touch[facility] Bilirubin [Mass/Vol]0.30 mg/dLInvalid Interpretation Code0.0-1.0[place]Touch[facility] Bilirubin Ql (U)NegativeInvalid Interpretation Code NegativeWest BendTouchmedia Calcium [Mass/Vol]10.20 mg/dLInvalid Interpretation Code8.5-10.8Bformerly [facility] hospitalStrong[facility]am Chloride [Moles/Vol]96.0 mmol/LInvalid Interpretation Dfya576-997SaynitkeqTouchmedia Cholesterol [Mass/Vol]218.0 mg/dLInvalid Interpretation Code0-200[place]Touch[facility] Cholesterol in HDL [Mass/Vol]41.0 mg/dLInvalid Interpretation Rraf36-189Zaedehskb [employer] Cholesterol in LDL [Mass/Vol]139.0 mg/dLInvalid Interpretation Code0-130[facility] [employer] Cholesterol in VLDL [Mass/Vol]38.0 mg/dLInvalid Interpretation Code0-39[employer] [facility] Cholesterol.total/Cholesterol in HDL [Mass ratio]5 {ratio}Invalid Interpretation CodeWest BendITADSecurity [facility] CO2 [Moles/Vol]26.0 mmol/LInvalid Interpretation Code 23-30[employer] [facility] Creatinine (U) [Mass/Vol]41.10 mg/dLInvalid Interpretation CodeNot Estab. mg/dLBglenbeigh hospital [employer] [facility] Creatinine [Mass/Vol]1.0 mg/dLInvalid Interpretation Code0.5-1.5Bglenbeigh hospital [employer] [facility] GFR/1.73 sq M.predicted among non-blacks MDRD (S/P/Bld) [Vol rate/Area]77 mL/min/{1.73_m2}Invalid Interpretation CodeWest BendITADSecurity [facility] Glucose [Mass/Vol]134.0 mg/dLInvalid Interpretation Mixs54-991LlskunzflITADSecurity [facility] Ketones Ql (U)NegativeInvalid Interpretation Code NegativeWest BendITADSecurity [facility] Parathyrin.intact [Mass/Vol]24 pg/mLInvalid Interpretation Ltgs65-17XgicrwoqwTouchmedia pH (U)6.5 [pH]Invalid Interpretation Code5.0-9.0 [employer] Phosphate [Mass/Vol]3.60 mg/dLInvalid Interpretation Code2.5-4.5BKettering [facility] [facility] Potassium [Moles/Vol]4.60 mmol/LInvalid Interpretation Code3.5-5.3B[facility] Protein [Mass/Vol]7.90 g/dLInvalid Interpretation Code 6.3-7.9B[facility] Sodium [Moles/Vol]133.0 mmol/LInvalid Interpretation Mqtt574-457FtibxsomsLake County [facility] Hospital [facility] Specific gravity (U) [Rel density]1.005Invalid Interpretation Code1.003-1.030[facility] Triglyceride [Mass/Vol]190.0 mg/dLInvalid Interpretation Isko73-032Mnsvktijk Valley [facility] [facility] Urea nitrogen [Mass/Vol]23.0 mg/dLInvalid Interpretation Code7-25[facility] Urea nitrogen/Creatinine [Mass ratio]23 mg/mgInvalid Interpretation Code6-20[facility] [employer] [facility] Urobilinogen (U) [Mass/Vol]normalInvalid Interpretation CodenormalTrinity Health System [employer] [facility] Laboratory - Hematology and Cell countson 07-27-2022 HbA1c (Bld) [Mass fraction]6.70 %Invalid Interpretation Code4.3-6.3BKettering [facility] [employer] [facility] Hemoglobin Ql (U)NegativeInvalid Interpretation Code NegativeTrinity Health System [facility] Laboratory - Specimen informationon 74-87-9191Lgpuagj (U)clearInvalid Interpretation CodeClearBKettering Health Washington Township [facility] Color (U)yellowInvalid Interpretation Codeyellow [facility] - Urinalysison 84-04-9409Qjhrmbj Test strip (U) [Mass/Vol]4+Invalid Interpretation CodeNegativeWest BendTouchmedia Leukocyte esterase Test strip Ql (U)NegativeInvalid Interpretation CodeNegativeWest BendTouchmedia Nitrite Ql (U)NegativeInvalid Interpretation Code NegativeWest BendTouchmedia Protein Ql (U)NegativeInvalid Interpretation Code NegativeWest BendTouchmedia No Panel Informationon 43-90-4785Uwgg mass index (BMI) [Percentile] Per age and sex0.1 {percentile}Invalid Interpretation CodeWest BendTouchmedia 954-9082Pawyvm-gvb-length Per age and sex0.1 {percentile} Invalid Interpretation CodeWest BendTouchmedia 146.0 mg/dLInvalid Interpretation CodeWest BendTouchmedia Patient did NOT bring meterInvalid Interpretation Code 70-117[facility] BendTouch[facility] Laboratory - Chemistry and Chemistry - challengeon 40-46-1550Ppmcqul (U) [Mass/Vol]17.1Invalid Interpretation Code<17.0[place] [facility] Albumin [Mass/Vol]4.80 g/dLInvalid Interpretation Code 3.7-5.0[place] Albumin/Creatinine DL <= 20 mg/L (U) [Mass ratio]26.8 mg/gInvalid Interpretation Code0.0-30.0[place] BendTouch[facility] Albumin/Globulin [Mass ratio]1.7 {ratio}Invalid Interpretation Code1.0-2.4Bgl[facility]beigh hospital [employer] ALP [Catalytic activity/Vol]65.0 U/LInvalid Interpretation Pfoc55-544RsnqyhmqdTouchmedia ALT [Catalytic activity/Vol]51.0 U/LInvalid Interpretation Code0-50[facility] Anion gap [Moles/Vol]13 mmol/LInvalid Interpretation Punl91-80Rethinghe [place] [facility] AST [Catalytic activity/Vol]30.0 U/LInvalid Interpretation Code0-40[facility] Bilirubin [Mass/Vol]0.50 mg/dLInvalid Interpretation Code0.0-1.0[employer] [facility] Calcium [Mass/Vol]10.80 mg/dLInvalid Interpretation Code8.5-10.8BKettering [facility] Chloride [Moles/Vol]99.0 mmol/LInvalid Interpretation Nfyy233-196Dzcnbpidc [place] [facility] Cholesterol [Mass/Vol]214.0 mg/dLInvalid Interpretation Code0-200[employer] [facility] Cholesterol in HDL [Mass/Vol]57.0 mg/dLInvalid Interpretation Agoc46-502UwrzsilkeITADSecurity [facility] Cholesterol in LDL [Mass/Vol]133.0 mg/dLInvalid Interpretation Code0-130West BendITADSecurity [facility] Cholesterol in VLDL [Mass/Vol]24.0 mg/dLInvalid Interpretation Code0-39[employer] [facility] Cholesterol.total/Cholesterol in HDL [Mass ratio]4 {ratio}Invalid Interpretation CodeWest BendITADSecurity [facility] CO2 [Moles/Vol]30.0 mmol/LInvalid Interpretation Code 23-30West BendITADSecurity [facility] Creatinine (U) [Mass/Vol]63.80 mg/dLInvalid Interpretation CodeNot Estab. mg/dLBglenbeigh hospital [employer] Creatinine [Mass/Vol]1.10 mg/dLInvalid Interpretation Code0.5-1.5Bformerly [facility] hospitalStrongSteam GFR/1.73 sq M.predicted among non-blacks MDRD (S/P/Bld) [Vol rate/Area]69 mL/min/{1.73_m2}Invalid Interpretation CodeBlst. john's episcopal hospital south shoreTouchmedia Glucose [Mass/Vol]128.0 mg/dLInvalid Interpretation Oxpp17-511TdgohsivvTouchmedia Potassium [Moles/Vol]4.60 mmol/LInvalid Interpretation Code3.5-5.3Bformerly [facility] hospitalStrong[facility]am Prostate specific Ag [Mass/Vol]0.85 ng/mLInvalid Interpretation Code0.00-4.00West BendITADSecurity [facility] Protein [Mass/Vol]7.60 g/dLInvalid Interpretation Code 6.3-7.9Bamery hospital and clinicIgY [employer] Sodium [Moles/Vol]137.0 mmol/LInvalid Interpretation Bmzh177-556DvumokppuTouchmedia Triglyceride [Mass/Vol]120.0 mg/dLInvalid Interpretation Qkhn47-539KfpfdlfrlITADSecurity [facility] Urea nitrogen [Mass/Vol]16.0 mg/dLInvalid Interpretation Code7-25[place] BendTouchmedia Urea nitrogen/Creatinine [Mass ratio]15 mg/mgInvalid Interpretation Code6-20[facility] - Hematology and Cell countson 02-17-2022 HbA1c (Bld) [Mass fraction]6.50 %Invalid Interpretation Code4.3-6.3Bamery hospital and clinicIgY [employer] No Panel Informationon 30-18-1404131.0 mg/dLInvalid Interpretation CodeWest BendTouchmedia Laboratory - Chemistry and Chemistry - challengeon 11-06-8201Dvxxgba (U) [Mass/Vol]< 12.0Invalid Interpretation Code< 17.0 ug/mL [facility] Albumin [Mass/Vol]4.70 g/dLInvalid Interpretation Code 3.7-5.0[place] BendTouch[facility] Albumin/Globulin [Mass ratio]1.6 {ratio}Invalid Interpretation Code1.0-2.4Bgl[facility]beigh hospital [employer] ALP [Catalytic activity/Vol]66.0 U/LInvalid Interpretation Uyay06-586SgomothsmTouchmedia ALT [Catalytic activity/Vol]38.0 U/LInvalid Interpretation Code0-50[place] BendTouchmedia Anion gap [Moles/Vol]15 mmol/LInvalid Interpretation Bamw88-51DlygbystiTouchmedia AST [Catalytic activity/Vol]23.0 U/LInvalid Interpretation Code0-40[place] BendTouch[facility] Bilirubin [Mass/Vol]0.40 mg/dLInvalid Interpretation Code0.0-1.0[facility] BendITADSecurity [facility] Bilirubin Ql (U)NegativeInvalid Interpretation Code NegativeWest BendITADSecurity [facility] Calcium [Mass/Vol]10.40 mg/dLInvalid Interpretation Code8.5-10.8[facility]gl[facility] [employer] Chloride [Moles/Vol]101.0 mmol/LInvalid Interpretation Mdgg521-820ZnvgvfvuqTouchmedia CO2 [Moles/Vol]28.0 mmol/LInvalid Interpretation Code 23-30[facility] Creatinine (U) [Mass/Vol]60.60 mg/dLInvalid Interpretation CodeNot Estab. mg/dLBKettering Health [facility] Creatinine [Mass/Vol]1.10 mg/dLInvalid Interpretation Code0.5-1.5BKettering Health [facility] Gamma glutamyl transferase [Catalytic activity/Vol]62 U/LInvalid Interpretation Code7-51[employer] [facility] GFR/1.73 sq M.predicted among non-blacks MDRD (S/P/Bld) [Vol rate/Area]69 mL/min/{1.73_m2}Invalid Interpretation CodeTrinity Health System [facility] Glucose [Mass/Vol]116.0 mg/dLInvalid Interpretation Lbwy75-263Rmgayiinz [place] [facility] Ketones Ql (U)1+Invalid Interpretation CodeNegative [facility] pH (U)6 [pH]Invalid Interpretation Code5.0-9.0[employer] [facility] Potassium [Moles/Vol]4.80 mmol/LInvalid Interpretation Code3.5-5.3[facility]gl[facility]igh [facility] [employer] [facility] Protein [Mass/Vol]7.70 g/dLInvalid Interpretation Code 6.3-7.9[facility]gl[facility] [employer] [facility] Sodium [Moles/Vol]139.0 mmol/LInvalid Interpretation Rafi051-300DilshvjafITADSecurity [facility] Specific gravity (U) [Rel density]1.010Invalid Interpretation Code1.003-1.030[employer] [facility] Urea nitrogen [Mass/Vol]17.0 mg/dLInvalid Interpretation Code7-25West BendITADSecurity [facility] Urea nitrogen/Creatinine [Mass ratio]15 mg/mgInvalid Interpretation Code6-20West BendITADSecurity [facility] Urobilinogen (U) [Mass/Vol]normalInvalid Interpretation CodenormalTrinity Health System [facility] Laboratory - Hematology and Cell countson 01-15-2022 Erythrocyte distribution width (RBC) [Ratio]12.50 %Invalid Interpretation Code 11.5-15.5[facility]gl[facility]igh [facility] [employer] [facility] HbA1c (Bld) [Mass fraction]6.60 %Invalid Interpretation Code4.3-6.3Bglenbeigh hospital [employer] [facility] Hematocrit (Bld) [Volume fraction]49.80 %Invalid Interpretation Code37.8-51.0West BendITADSecurity [facility] Hemoglobin (Bld) [Mass/Vol]16.40 g/dLInvalid Interpretation Code12.6-17.0West BendITADSecurity [facility] Hemoglobin Ql (U)NegativeInvalid Interpretation Code NegativeWest BendITADSecurity [facility] MCH (RBC) [Entitic mass]31.90 pgInvalid Interpretation Code25.7-33.8Bformerly [facility] hospitalVascular [facility] MCHC (RBC) [Mass/Vol]32.90 g/dLInvalid Interpretation Code32.0-36.0West BendITADSecurity [facility] MCV (RBC) [Entitic vol]96.90 fLInvalid Interpretation Code81.0-100.2Bformerly [facility] hospitalStrong[facility]am Platelet mean volume (Bld) [Entitic vol]9.30 fLInvalid Interpretation Code8.3-11.5Bformerly [facility] hospitalStrongSteam Platelets (Bld) [#/Vol]216.0 10*3/uLInvalid Interpretation Anqp180-159Jclmxluem [place] [facility] RBC (Bld) [#/Vol]5.140 10*6/uLInvalid Interpretation Code4.34-5.61[facility] WBC (Bld) [#/Vol]7.30 10*3/uLInvalid Interpretation Code3.9-10.3BK[facility] Laboratory - Specimen informationon 10-75-1851Ivbnjtr (U)clearInvalid Interpretation CodeClearBKettering Health [facility] Color (U)yellowInvalid Interpretation Codeyellow [facility] Laboratory - Urinalysison 55-06-5575Dzmrfaa Test strip (U) [Mass/Vol]4+Invalid Interpretation CodeNegativeTrinity Health System [facility] Leukocyte esterase Test strip Ql (U)NegativeInvalid Interpretation CodeNegativeTrinity Health System [facility] Nitrite Ql (U)NegativeInvalid Interpretation Code NegativeTrinity Health System [facility] Protein Ql (U)NegativeInvalid Interpretation Code NegativeTrinity Health System [facility] No Panel Informationon 13-76-1598080.0 mg/dLInvalid Interpretation CodeTrinity Health System [facility] Glucose Meter Check NOT PerformedInvalid Interpretation Ytgy08-462Loefepvim [employer] [facility] Laboratory - Chemistry and Chemistry - challengeon 62-88-6585Fbqrvav [Mass/Vol]4.70 g/dLInvalid Interpretation Code3.7-5.0[employer] [facility] Albumin/Globulin [Mass ratio]1.7 {ratio}Invalid Interpretation Code1.0-2.4Bgl[facility]beigh hospital [employer] [facility] ALP [Catalytic activity/Vol]62.0 U/LInvalid Interpretation Dwfm21-686Vzgtibkat [employer] ALT [Catalytic activity/Vol]57.0 U/LInvalid Interpretation Code0-50[facility] [employer] Anion gap [Moles/Vol]16 mmol/LInvalid Interpretation Gdts06-56Ittgkytas [employer] AST [Catalytic activity/Vol]33.0 U/LInvalid Interpretation Code0-40[place] BendTouchmedia Bilirubin [Mass/Vol]0.40 mg/dLInvalid Interpretation Code0.0-1.0[place] BendTouch[facility] Calcium [Mass/Vol]10.20 mg/dLInvalid Interpretation Code8.5-10.8[facility]gl[facility] [employer] Chloride [Moles/Vol]99.0 mmol/LInvalid Interpretation Hydr687-541UkikjyhruTouchmedia Cholesterol [Mass/Vol]217.0 mg/dLInvalid Interpretation Code0-200[place] BendTouch[facility] Cholesterol in HDL [Mass/Vol]49.0 mg/dLInvalid Interpretation Anev52-659XejreczctTouchmedia Cholesterol in LDL [Mass/Vol]131.0 mg/dLInvalid Interpretation Code0-130[place] Cholesterol in VLDL [Mass/Vol]37.0 mg/dLInvalid Interpretation Code0-39[place] [facility] Cholesterol.total/Cholesterol in HDL [Mass ratio]4 {ratio}Invalid Interpretation CodeWest BendTouchmedia CO2 [Moles/Vol]28.0 mmol/LInvalid Interpretation Code 23-30[place] BendTouchmedia Creatinine [Mass/Vol]1.10 mg/dLInvalid Interpretation Code0.5-1.5Bformerly [facility] hospitalVascular Magnetics [facility] Gamma glutamyl transferase [Catalytic activity/Vol]98 U/LInvalid Interpretation Code7-51[employer] [facility] GFR/1.73 sq M.predicted among non-blacks MDRD (S/P/Bld) [Vol rate/Area]69 mL/min/{1.73_m2}Invalid Interpretation CodeWest BendITADSecurity [facility] Glucose [Mass/Vol]127.0 mg/dLInvalid Interpretation Eodg80-607PmipsxcqgITADSecurity [facility] Potassium [Moles/Vol]4.40 mmol/LInvalid Interpretation Code3.5-5.3Bglenbeigh hospital [employer] [facility] Protein [Mass/Vol]7.50 g/dLInvalid Interpretation Code 6.3-7.9Bformerly [facility] hospitalVascular [facility] Sodium [Moles/Vol]139.0 mmol/LInvalid Interpretation Forn413-082OysrcibxxITADSecurity [facility] Triglyceride [Mass/Vol]186.0 mg/dLInvalid Interpretation Guqw92-189TuazwsmxnITADSecurity [facility] Urea nitrogen [Mass/Vol]19.0 mg/dLInvalid Interpretation Code7-25West BendITADSecurity [facility] Urea nitrogen/Creatinine [Mass ratio]17 mg/mgInvalid Interpretation Code6-20[facility] BendTouchmedia Laboratory - Hematology and Cell countson 08-18-2021 Erythrocyte distribution width (RBC) [Ratio]12.60 %Invalid Interpretation Code 11.5-15.5Bamery hospital and clinicCallaway [employer] [facility] HbA1c (Bld) [Mass fraction]6.20 %Invalid Interpretation Code4.3-6.3BK[facility] Hematocrit (Bld) [Volume fraction]48.40 %Invalid Interpretation Code37.8-51.0[facility] [employer] [facility] Hemoglobin (Bld) [Mass/Vol]16.10 g/dLInvalid Interpretation Code12.6-17.0[facility] [facility] MCH (RBC) [Entitic mass]32.40 pgInvalid Interpretation Code25.7-33.8BKettering Health [facility] MCHC (RBC) [Mass/Vol]33.30 g/dLInvalid Interpretation Code32.0-36.0[facility] [employer] [facility] MCV (RBC) [Entitic vol]97.40 fLInvalid Interpretation Code81.0-100.2BKettering Health [facility] [facility] Platelet mean volume (Bld) [Entitic vol]10.10 fLInvalid Interpretation Code8.3-11.5BKettering [facility] Platelets (Bld) [#/Vol]214.0 10*3/uLInvalid Interpretation Ylzn057-658Jqhbghprt [place] [facility] RBC (Bld) [#/Vol]4.970 10*6/uLInvalid Interpretation Code4.34-5.61[facility] [facility] WBC (Bld) [#/Vol]5.90 10*3/uLInvalid Interpretation Code3.9-10.3BKettering [facility] No Panel Informationon 24-00-6837579.0 mg/dLInvalid Interpretation CodeTrinity Health System [facility] No Specimen, Unable to VoidInvalid Interpretation Code [facility] No Panel Informationon 73-13-1906Wyiiarnx Retinal Eye ExamInvalid Interpretation CodeC[facility] Laboratory - Chemistry and Chemistry - challengeon 18-34-1730Spallun [Mass/Vol]4.60 g/dLInvalid Interpretation Code3.7-4.5BWeeleo Albumin/Globulin [Mass ratio]1.4 {ratio}Invalid Interpretation Code1.0-2.4Bamery hospital and clinicIgY [employer] ALP [Catalytic activity/Vol]75.0 U/LInvalid Interpretation Gmtx12-555QyendigonCronote ALT [Catalytic activity/Vol]41.0 U/LInvalid Interpretation Code0-50[facility] Anion gap [Moles/Vol]14 mmol/LInvalid Interpretation Krjd74-97LxooplffeCronote AST [Catalytic activity/Vol]26.0 U/LInvalid Interpretation Code0-40[employer] Bilirubin [Mass/Vol]0.40 mg/dLInvalid Interpretation Code0.0-1.0[facility] Bilirubin Ql (U)NegativeInvalid Interpretation Code NegativeC[facility]ote Calcium [Mass/Vol]10.10 mg/dLInvalid Interpretation Code8.5-10.8BWeeleo Chloride [Moles/Vol]99.0 mmol/LInvalid Interpretation Mhhq185-202RrywhipbfIndicee CO2 [Moles/Vol]28.0 mmol/LInvalid Interpretation Code 23-30Indicee Creatinine [Mass/Vol]0.90 mg/dLInvalid Interpretation Code0.5-1.5BWeeleo GFR/1.73 sq M.predicted among non-blacks MDRD (S/P/Bld) [Vol rate/Area]87 mL/min/{1.73_m2}Invalid Interpretation CodeTrinity Health System [facility] Glucose [Mass/Vol]135.0 mg/dLInvalid Interpretation Qfsr25-064Olbosraaf [employer] Ketones Ql (U)NegativeInvalid Interpretation Code NegativeColgate [employer] [facility] Parathyrin.intact [Mass/Vol]22 pg/mLInvalid Interpretation Sell87-79TlprmjkhbTouchmedia pH (U)6 [pH]Invalid Interpretation Code5.0-9.0[employer] [facility] Phosphate [Mass/Vol]3.50 mg/dLInvalid Interpretation Code2.5-4.5[facility] [employer] [facility] Potassium [Moles/Vol]4.50 mmol/LInvalid Interpretation Code3.5-5.3[facility] [employer] Protein [Mass/Vol]7.80 g/dLInvalid Interpretation Code 6.3-7.9[facility] [employer] [facility] Sodium [Moles/Vol]136.0 mmol/LInvalid Interpretation Rvdp081-208VostgfqyiITADSecurity [facility] Specific gravity (U) [Rel density]1.015Invalid Interpretation Code1.003-1.030[place] BendTouch[facility] Urea nitrogen [Mass/Vol]15.0 mg/dLInvalid Interpretation Code7-25[place] BendTouchmedia Urea nitrogen/Creatinine [Mass ratio]17 mg/mgInvalid Interpretation Code6-20[place] BendTouch[facility] Urobilinogen (U) [Mass/Vol]normalInvalid Interpretation CodenormalWest BendITADSecurity [facility] Laboratory - Hematology and Cell countson 03-19-2021 Erythrocyte distribution width (RBC) [Ratio]12.80 %Invalid Interpretation Code 11.5-15.5Bformerly [facility] hospitalStrongSteam HbA1c (Bld) [Mass fraction]6.40 %Invalid Interpretation Code4.3-6.3[facility] [employer] [facility] Hematocrit (Bld) [Volume fraction]49.0 %Invalid Interpretation Code37.8-51.0[place] Hemoglobin (Bld) [Mass/Vol]16.60 g/dLInvalid Interpretation Code12.6-17.0[place] Hemoglobin Ql (U)NegativeInvalid Interpretation Code NegativeWest BendITADSecurity [facility] MCH (RBC) [Entitic mass]32.10 pgInvalid Interpretation Code25.7-33.8Bamery hospital and clinicIgY [employer] MCHC (RBC) [Mass/Vol]33.90 g/dLInvalid Interpretation Code32.0-36.0West BendITADSecurity [facility] MCV (RBC) [Entitic vol]94.80 fLInvalid Interpretation Code81.0-100.2Bamery hospital and clinicCallaway [employer] [facility] Platelet mean volume (Bld) [Entitic vol]9.60 fLInvalid Interpretation Code8.3-11.5BWeeleo Platelets (Bld) [#/Vol]257.0 10*3/uLInvalid Interpretation Whjq247-845BhownpvplTouchmedia RBC (Bld) [#/Vol]5.170 10*6/uLInvalid Interpretation Code4.34-5.61BlCronote WBC (Bld) [#/Vol]6.90 10*3/uLInvalid Interpretation Code3.9-10.3BKettering [facility] Laboratory - Specimen informationon 79-99-1433Edfidht (U)clearInvalid Interpretation CodeClearBKettering Health Washington [facility] Color (U)yellowInvalid Interpretation Codeyellow [facility] [facility] Laboratory - Urinalysison 94-59-8946Wgvjxbt Test strip (U) [Mass/Vol]4+Invalid Interpretation CodeNegativeTrinity Health System [facility] Leukocyte esterase Test strip Ql (U)NegativeInvalid Interpretation CodeNegativeTrinity Health System [facility] Nitrite Ql (U)NegativeInvalid Interpretation Code NegativeTrinity Health System [facility] Protein Ql (U)NegativeInvalid Interpretation Code NegativeWest BendEDP [employer]otech [place] [facility] No Panel Informationon 39-35-2589008.0 mg/dLInvalid Interpretation CodeWest BendITADSecurity [facility] patient's meter broke and doesn't have new one yet Invalid Interpretation Avlx30-197[place] [facility] Laboratory - Chemistry and Chemistry - challengeon 59-02-0383Sfeaiye (U) [Mass/Vol]< 12.0Invalid Interpretation Code< 17.0 ug/mL [employer] [facility] Albumin [Mass/Vol]4.40 g/dLInvalid Interpretation Code 3.7-4.5[facility] [employer] [facility] Albumin/Globulin [Mass ratio]1.5 {ratio}Invalid Interpretation Code1.0-2.4[facility] [employer] [facility] ALP [Catalytic activity/Vol]69.0 U/LInvalid Interpretation Xuzr08-887Lphhlxlmr [employer] ALT [Catalytic activity/Vol]30.0 U/LInvalid Interpretation Code0-50Colgate [employer] Anion gap [Moles/Vol]13 mmol/LInvalid Interpretation Nucf85-57Nyykaopty [employer] AST [Catalytic activity/Vol]20.0 U/LInvalid Interpretation Code0-40Colgate [employer] Bilirubin [Mass/Vol]0.40 mg/dLInvalid Interpretation Code0.0-1.0West BendITADSecurity [facility] Bilirubin Ql (U)NegativeInvalid Interpretation Code NegativeWest BendITADSecurity [facility] Calcium [Mass/Vol]9.80 mg/dLInvalid Interpretation Code 8.5-10.8[facility] [employer] [facility] Chloride [Moles/Vol]98.0 mmol/LInvalid Interpretation Awko234-415JipxkloprTouchmedia Cholesterol [Mass/Vol]207.0 mg/dLInvalid Interpretation Code0-200West BendITADSecurity [facility] Cholesterol in HDL [Mass/Vol]40.0 mg/dLInvalid Interpretation Ncbs37-285FiretvgnyITADSecurity [facility] Cholesterol in LDL [Mass/Vol]100.0 mg/dLInvalid Interpretation Code0-130[place] Cholesterol in VLDL [Mass/Vol]67.0 mg/dLInvalid Interpretation Code0-39[place] Cholesterol.total/Cholesterol in HDL [Mass ratio]5 {ratio}Invalid Interpretation CodeWest BendTouchmedia CO2 [Moles/Vol]29.0 mmol/LInvalid Interpretation Code 23-30West BendITADSecurity [facility] Creatinine (U) [Mass/Vol]31.90 mg/dLInvalid Interpretation CodeNot Estab. mg/dLBglenbeigh hospital [employer] [facility] Creatinine [Mass/Vol]1.0 mg/dLInvalid Interpretation Code0.5-1.5[facility] [employer] [facility] GFR/1.73 sq M.predicted among non-blacks MDRD (S/P/Bld) [Vol rate/Area]77 mL/min/{1.73_m2}Invalid Interpretation CodeWest BendTouchmedia Glucose [Mass/Vol]113.0 mg/dLInvalid Interpretation Bysu41-082AzbwcreujTouchmedia Ketones Ql (U)NegativeInvalid Interpretation Code NegativeWest BendTouchmedia pH (U)6 [pH]Invalid Interpretation Code5.0-9.0West BendITADSecurity [facility] Potassium [Moles/Vol]4.40 mmol/LInvalid Interpretation Code3.5-5.3[facility] [employer] [facility] Prostate specific Ag [Mass/Vol]0.76 ng/mLInvalid Interpretation Code0.00-4.00West BendITADSecurity [facility] Protein [Mass/Vol]7.30 g/dLInvalid Interpretation Code 6.3-7.9[facility] [employer] Sodium [Moles/Vol]136.0 mmol/LInvalid Interpretation Qohd784-499MulcereleTouchmedia Specific gravity (U) [Rel density]1.005Invalid Interpretation Code1.003-1.030[place] Triglyceride [Mass/Vol]334.0 mg/dLInvalid Interpretation Ptql67-639Bvatikwil [employer] [facility] Urea nitrogen [Mass/Vol]15.0 mg/dLInvalid Interpretation Code7-25[facility] [employer] [facility] Urea nitrogen/Creatinine [Mass ratio]15 mg/mgInvalid Interpretation Code6-20[employer] [facility] Urobilinogen (U) [Mass/Vol]normalInvalid Interpretation CodenormalColgate [employer] [facility] Laboratory - Hematology and Cell countson 12-23-2020 Erythrocyte distribution width (RBC) [Ratio]12.90 %Invalid Interpretation Code 11.5-15.5[facility] [employer] [facility] HbA1c (Bld) [Mass fraction]6.30 %Invalid Interpretation Code4.3-6.3[facility] [employer] [facility] Hematocrit (Bld) [Volume fraction]48.0 %Invalid Interpretation Code37.8-51.0West BendITADSecurity [facility] Hemoglobin (Bld) [Mass/Vol]16.40 g/dLInvalid Interpretation Code12.6-17.0West BendITADSecurity [facility] Hemoglobin Ql (U)NegativeInvalid Interpretation Code NegativeWest BendITADSecurity [facility] MCH (RBC) [Entitic mass]32.20 pgInvalid Interpretation Code25.7-33.8Bformerly west seattle psychiatric hospitalVascular [employer] [facility] MCHC (RBC) [Mass/Vol]34.20 g/dLInvalid Interpretation Code32.0-36.0West BendITADSecurity [facility] MCV (RBC) [Entitic vol]94.10 fLInvalid Interpretation Code81.0-100.2Bformerly [facility] psychiatric hospitalStrongSteam Platelet mean volume (Bld) [Entitic vol]9.30 fLInvalid Interpretation Code8.3-11.5[facility] [employer] [facility] Platelets (Bld) [#/Vol]265.0 10*3/uLInvalid Interpretation Hajo373-047[place]wy[place] [facility] RBC (Bld) [#/Vol]5.10 10*6/uLInvalid Interpretation Code4.34-5.61[facility] WBC (Bld) [#/Vol]7.30 10*3/uLInvalid Interpretation Code3.9-10.3[facility] [employer] [facility] Laboratory - Specimen informationon 63-54-2981Qcsfxbx (U)clearInvalid Interpretation CodeClearBKettering Health Washington Township [facility] Collection time (Andrei) [Date/time]10:56 amInvalid Interpretation CodeColgate [employer] [facility] Color (U)yellowInvalid Interpretation Codeyellow [facility] Laboratory - Urinalysison 83-82-0383Vhcfaui Test strip (U) [Mass/Vol]4+Invalid Interpretation CodeNegativeTrinity Health System [facility] Leukocyte esterase Test strip Ql (U)NegativeInvalid Interpretation CodeNegativeTrinity Health System [facility] Nitrite Ql (U)NegativeInvalid Interpretation Code NegativeColgate [employer] [facility] Protein Ql (U)NegativeInvalid Interpretation Code NegativeWest BendITADSecurity [facility] No Panel Informationon 65-81-7382393.0 mg/dLInvalid Interpretation CodeWest BendITADSecurity [facility] Laboratory - Chemistry and Chemistry - challengeon 40-33-6260Mqfrutm/Globulin [Mass ratio]1.2 {ratio}Invalid Interpretation Code 1.0-2.4Bamery hospital and clinicCallaway [employer] [facility] Bilirubin Ql (U)NegativeInvalid Interpretation Code NegativeWest BendTouchmedia Ketones Ql (U)NegativeInvalid Interpretation Code NegativeWest BendTouchmedia Urobilinogen (U) [Mass/Vol]normalInvalid Interpretation CodenormalWest BendITADSecurity [facility] Laboratory - Urinalysison 61-57-4379Exubsoklx esterase Test strip Ql (U)NegativeInvalid Interpretation CodeNegativeWest BendITADSecurity [facility] Nitrite Ql (U)NegativeInvalid Interpretation Code NegativeWest BendITADSecurity [facility] Protein Ql (U)NegativeInvalid Interpretation Code NegativeWest BendITADSecurity [facility] Metabolic Panelon 82-02-0037Oajdtun [Mass/Vol]4.40 g/dL Invalid Interpretation Code3.7-4.5Bamery hospital and clinicCallaway [employer] [facility] ALP [Catalytic activity/Vol]81.0 U/LInvalid Interpretation Lizh72-917VlucgboqyITADSecurity [facility] ALT [Catalytic activity/Vol]57.0 U/LInvalid Interpretation Code0-50West BendITADSecurity [facility] Anion gap [Moles/Vol]13 mmol/LInvalid Interpretation Ahmp32-48LywrhmqfwTouchmedia AST [Catalytic activity/Vol]36.0 U/LInvalid Interpretation Code0-40Cronote Bilirubin [Mass/Vol]0.60 mg/dLInvalid Interpretation Code0.0-1.0[place]Touch[facility] Calcium [Mass/Vol]11.0 mg/dLInvalid Interpretation Code 8.5-10.8BWeeleo Chloride [Moles/Vol]97.0 mmol/LInvalid Interpretation Qdjl967-054KyovjxheoTouchmedia CO2 [Moles/Vol]27.0 mmol/LInvalid Interpretation Code 23-30[place]Touch[facility] Creatinine [Mass/Vol]1.60 mg/dLInvalid Interpretation Code0.5-1.5BWeeleo GFR/1.73 sq M predicted among non-blacks MDRD (S/P/Bld) [Vol rate/Area]45 mL/min/{1.73_m2}Invalid Interpretation CodeWest BendTouchmedia Glucose [Mass/Vol]148.0 mg/dLInvalid Interpretation Iils38-617GqoxnjpsyCronote Glucose [Mass/Vol]Patient did not bring strips for otfgp64-078UcqkrmhcmTouchmedia HbA1c (Bld) [Mass fraction]6.90 %Invalid Interpretation Code4.3-6.3BWeeleo Potassium [Moles/Vol]4.90 mmol/LInvalid Interpretation Code3.5-5.3BWeeleo Protein [Mass/Vol]8.20 g/dLInvalid Interpretation Code 6.3-7.9BWeeleo Sodium [Moles/Vol]132.0 mmol/LInvalid Interpretation Fquq601-846UazwelrowCronote Urea nitrogen [Mass/Vol]23.0 mg/dLInvalid Interpretation Code7-25Cronote Urea nitrogen/Creatinine [Mass ratio]14 mg/mgInvalid Interpretation Code6-20Cronote No Panel Informationon 40-38-7306Wpjhmyp did not bring strips for meterInvalid Interpretation Winj41-500WlctcedrkTouchmedia Otheron 28-74-2160Ehwfdwk/Globulin [Mass ratio]1.2 (calc)1.0-2.4[facility] [employer] Bilirubin Ql (U)NegativeNegativeColgate [employer] Glucose Test strip (U) [Mass/Vol]4+Invalid Interpretation CodeNegativeWest BendTouchmedia Hemoglobin Ql (U)TraceInvalid Interpretation Code NegativeWest BendTouchmedia Nitrite Ql (U)NegativeNegUNC HealthTouchmedia pH (U)5 [pH]Invalid Interpretation Code5.0-9.0[place] BendTouch[facility] Protein Ql (U)NegativeNegativeWest BendTouchmedia Urobilinogen Test strip (U) [Mass/Vol]normalnormal [facility] [employer] 151.0 mg/dLInvalid Interpretation CodeWest BendTouchmedia Urinalysison 69-97-9080Ecombki (U)ClearInvalid Interpretation CodeClearBglenbeigh hospital [employer] Color (U)yellowInvalid Interpretation Codeyellow [facility] [employer] Ketones Ql (U)NegativeNegativeWest BendTouchmedia Leukocyte esterase Test strip Ql (U)NegativeNegative MonroeQu[place]am Specific gravity (U) [Rel density]1.015Invalid Interpretation Code1.003-1.030[place] BendTouchmedia Coding Summaryon 52-22-4093Ixrcaz SummaryCODING DATE: 06/20/2020 [facility] STATUS: Home PAYOR: Medicare APC DESCRIPTION [...] By: Estefany Aguilera Date Saved: 06/20/2020 12:49 pmNBluffton HospitalCoding SummaryCODING DATE: 06/20/2020 [facility] STATUS: Home PAYOR: Medicare APC DESCRIPTION [...] By: Estefany Aguilera Date Saved: 06/20/2020 12:47 [facility].Auto Diff 1on 06-17-2020 Auto [place] %7 %Normal1-12[facility] FoundationComment on above:Performed By: #### [id number], 5031385, 14066284, [id number], [id number] #### [facility] (DEFAULT) [address] [place] [address] 29074Qoub Abs#0.0 c95Lxymnf3.0-0.2MNationwide Children's HospitalComment on above:Performed By: #### 2226925, 0122747, 99276402, [id number], [id number] #### [facility] (DEFAULT) [address] [place] [address] 02569Xztlzwoml/100 WBC (Bld)0.5 %Normal0.2-2.0[facility] Comment on above:Performed By: #### [id number], 4508192, 31910052, [id number], [id number] #### [facility] (DEFAULT) [address] [place] [address] 85864Ywc Abs#0.2 p21Vsaetn4.0-0.4[facility] HospitalComment on above:Performed By: #### 9999146, 9516029, 96729510, [id number], [id number] #### [facility] (DEFAULT) [address] [place] [address] 67808Upzzthmmvmq/100 WBC (Bld)2.3 %Normal0.9-4.0[facility] HospitalComment on above:Performed By: #### 6851607, 4787923, 97485490, [id number], [id number] #### [facility] (DEFAULT) [address] [place] [address] 56566Ghewwtzfenr (Bld) [#/Vol]2.3 d84Wacnga5.3-2.9[facility] HospitalComment on above:Performed By: #### 2668839, 9394973, 82873030, [id number], [id number] #### [facility] (DEFAULT) [address] [place] [address] 74414Tsnnogqgims/100 WBC (Bld)25 %Tllasa40-79Swss[facility] Comment on above:Performed By: #### 8988583, 8407165, 44751080, [id number], [id number] #### [facility] (DEFAULT) [address] [place] [address] 16989Whzi Abs#0.7 w31Begfls4.0-0.8[facility] HospitalComment on above:Performed By: #### 9317292, 7184292, 34900557, [id number], [id number] #### [facility] (DEFAULT) [address] [place] [address] 52926Wkqo Abs#6.0 d69Hqatrt5.5-9.2Mcleveland clinic [facility] general HospitalComment on above:Performed By: #### 0427889, 3406772, 94846766, [id number], [id number] #### [facility] (DEFAULT) [address] [place] [address] 74026Gvqwfgawnll/100 WBC (Bld)65 %Tcxxff82-84[facility] Comment on above:Performed By: #### 4339552, 9196437, 70152640, [id number], [id number] #### [facility] (DEFAULT) [address] [place] [address] 97453.QC Respiratory Panel 2.1 (BioFire)on 58-07-8871Xfknvvec Control-Resp Panel 2.1(BioFire)PassMercy Health Urbana HospitalComment on above:Order Comment: Ordered by Discern. [[email or web address]]Performed By: #### [id number] #### [facility] (DEFAULT) [address] [place] [address] 01681NFI w/ Auto Diffon 94-19-1737Zcxxyivaxqm distribution width (RBC) [Ratio]12.9 %Opvxov29.5-15.0[facility] FoundationComment on above: Performed By: #### 6025437, 6060622, 89614261, 9265692552, [id number] #### [facility] (DEFAULT) [address] [place] [address] 40724Snpdkuvcxr (Bld) [Volume fraction]45.1 %Rcavwh63.8-51.9 [facility] FoundationComment on above:Performed By: #### 8893980, 8743256, 45269441, [id number], [id number] #### [facility] (DEFAULT) [address] [place] [address] 43839Wmpkkoelpn (Bld) [Mass/Vol]15.6 g/qLPfjrlt23.8-17.7 [facility] FoundationComment on above:Performed By: #### 9012088, 5648267, 25301551, [id number], [id number] #### [facility] (DEFAULT) [address] [place] [address] 24567Jzm Diff?AutoNormalCleveland Clinic Akron General HospitalComment on above: Performed By: #### 0061599, 7560997, 83974099, [id number], [id number] #### [facility] (DEFAULT) [address] [place] [address] 00173KNW (RBC) [Entitic mass]32 xnTjgvqe14-97Myyxrhkw Hospital Comment on above:Performed By: #### 3039286, 2677475, 85699368, 9476128084, [id number] #### [facility] (DEFAULT) [address] [place], [place] [address]HC (RBC) [Mass/Vol]35 g/dJNyvmpr79-21Thinkhww Hospital Comment on above:Performed By: #### 9540494, 5649113, 79059304, 9572914614, [id number] #### [facility] (DEFAULT) [address] [place] [address] 37275TNO (RBC) [Entitic vol]93 mZByefms72-032Acyvlfxj Hospital Comment on above:Performed By: #### 6412213, 5386468, 55317957, 3048605054, [id number] #### [facility] (DEFAULT) [address] [place] [address] 63374Ogpxvtys mean volume (Bld) [Entitic vol]9.9 fLNormal 6.3-10.2Mcleveland clinic [facility] general HospitalComment on above:Performed By: #### 6380017, 5552680, 99078616, [id number], [id number] #### [facility] (DEFAULT) [address] [place] [address] 19106Kriqylzff (Bld) [#/Vol]277 p67Qrqzhq207-985Zrihocvt HospitalComment on above:Performed By: #### 0705203, 8461503, 54270155, [id number], [id number] #### [facility] (DEFAULT) [address] [place] [address] 59453BWK (Bld) [#/Vol]4.83 v88Xstbjt9.70-5.30MaAkron Children's Hospital Comment on above:Performed By: #### 2970237, 6363307, 15953065, [id number], [id number] #### [facility] (DEFAULT) [address] [place] [address] 30660NBR (Bld) [#/Vol]9.3 p32Fvvbyk0.5-10.5Maparkview health Hospital Comment on above:Performed By: #### 6475778, 2503348, 42297714, [id number], [id number] #### [facility] (DEFAULT) [address] [place] [address] 69234NNT Standardon 48-82-5640pZUW Non AA>60[facility] Comment on above:Performed By: #### 9879437, 0248666, 84920154, [id number], [id number] #### [facility] (DEFAULT) [address] [place] [address] 00456hUOL AA>60[facility] FoundationComment on above:Result Comment: Chronic Kidney disease could be indicated at eGFRs of less than 60 ml/min/1.73m2. Kidney Failure is indicated at less than 15 ml/min/1.73m2 Performed By: #### 4846333, 0218154, 79485834, [id number], [id number] #### [facility] (DEFAULT) [address] [place] [address] 36744Mrmcspc [Mass/Vol]4.0 g/dLNormal3.5-5.0[facility] Comment on above:Performed By: #### 3508557, 8092390, 56629974, [id number], [id number] #### [facility] (DEFAULT) [address] [place] [address] 07139Lrxvdai/Globulin [Mass ratio]1.1 {ratio}Low1.4-2.6MNationwide Children's HospitalComment on above:Performed By: #### 9587303, 3495472, 35244060, 9002204530, [id number] #### [facility] (DEFAULT) [address] [place] [address] 47303Atb Phos70 IU/XJqvpod25-72Qdwvfwnl HospitalComment on above:Performed By: #### 5682336, 1548618, 02690232, 9290978441, [id number] #### [facility] (DEFAULT) [address] [place] [address] 01976LLG/SGPT42.0 IU/LBbabrk47.0-63.0[facility] HospitalComment on above:Performed By: #### 6692409, 9572447, 56551024, 9695311275, [id number] #### [facility] (DEFAULT) [address] [place] [address] 11012Excca gap [Moles/Vol]13.0 mmol/LNormal5.0-19.0[facility] HospitalComment on above:Performed By: #### 1201939, 1686636, 33818339, [id number], [id number] #### [facility] (DEFAULT) [address] [place] [address] 87629NVZ/SGOT27 IU/GBomiaa37-05Gxslappr HospitalComment on above:Performed By: #### 9862968, 9256840, 58269566, [id number], [id number] #### [facility] (DEFAULT) [address] [place] [address] 91214Lxzk Total0.7 mg/dLNormal0.3-1.2[facility] HospitalComment on above:Performed By: #### 4069456, 7124251, 90737871, 5790258037, [id number] #### [facility] (DEFAULT) [address] [place] [address] 98979Jjwxgrj [Mass/Vol]9.0 mg/dLNormal8.9-10.3[facility] Comment on above:Performed By: #### 3710286, 6515553, 15812814, [id number], [id number] #### [facility] (DEFAULT) [address] [place] [address] 01859Gazicefh [Moles/Vol]102 mmol/NKipswk868-451Prudvlmj HospitalComment on above:Performed By: #### 1671417, 6991367, 37188372, 0557117094, [id number] #### [facility] (DEFAULT) [address] [place] [address] 81146DP9 [Moles/Vol]25 mmol/FYmhxpk57-36Flmwbgmc Hospital Comment on above:Performed By: #### 1423508, 9551497, 01843856, 7191945174, [id number] #### [facility] (DEFAULT) [address] [place] [address] 12784Szexyyrlwn [Mass/Vol]0.97 mg/dLNormal0.90-1.30Maparkview health HospitalComment on above:Performed By: #### 9292512, 0844691, 17922133, [id number], [id number] #### [facility] (DEFAULT) [address] [place] [address] 34734Uqtzahec (S) [Mass/Vol]3.5 g/dLNormal1.5-4.3Mclevel[facility] clinic [facility] HospitalComment on above:Performed By: #### 0012100, 4350121, 51602475, [id number], [id number] #### [facility] (DEFAULT) [address] [place] [address] 75942Hpzrign [Mass/Vol]123.0 mg/hZFgdr09.0-118.0[facility] HospitalComment on above:Performed By: #### 6177843, 0829198, 17275769, [id number], [id number] #### [facility] (DEFAULT) [address] [place] [address] 39711Xbhbgzoefs [Osmolality]276 mOsm/LMcleveland clinic akron general HospitalComment on above:Performed By: #### [id number], [id number], [id number], [id number], [id number] #### [facility] (DEFAULT) [address] [place] [address] 98147Eubtrwmns [Moles/Vol]3.6 mmol/LNormal3.6-5.1Mcleveland clinic akron general HospitalComment on above:Performed By: #### [id number], [id number], [id number], [id number], [id number] #### [facility] (DEFAULT) [address] [place] [address] 53041Ylbfmyu [Mass/Vol]7.5 g/dLNormal6.5-8.1M[facility] Comment on above:Performed By: #### [id number], [id number], [id number], [id number], [id number] #### [facility] (DEFAULT) [address] [place] [address] 65610Nqugva [Moles/Vol]136.0 mmol/PKrlznz020.0-144.0[facility] HospitalComment on above:Performed By: #### [id number], [id number], [id number], [id number], [id number] #### [facility] (DEFAULT) [address] [place] [address] 99357Bpzy nitrogen [Mass/Vol]19 mg/dLNormal8-26[facility] HospitalComment on above:Performed By: #### [id number], [id number], [id number], [id number], [id number] #### [facility] (DEFAULT) [address] [place] [address] 71708Utnz nitrogen/Creatinine [Mass ratio]20.0 mg/mgHigh 4.6-16.2Mcleveland clinic akron general HospitalComment on above:Performed By: #### [id number], [id number], [id number], [id number], [id number] #### [facility] (DEFAULT) [address] [place] [address] 73754L-Ltgcdsi 88-50-4814T-Dimer0.23 mg/L FEUNormal0.19-0.50 [facility] FoundationComment on above:Result Comment: The INNOVANCE D-Dimer assay [...] ? Liver cirrhosis ? PregnancyPerformed By: #### [id number], [id number], [id number], [id number], [id number] #### [facility] (DEFAULT) [address] [place], [place] [address]XB Clinical Summaryon 15-15-2961DG Clinical Summary [facility] - Emergency Department [address] [place] [address] ED Clinical Summary PERSON INFORMATION Name: GEREMIAS MELCHOR Age: 54 Years Sex: MALE : 1965 MRN: Acct#: Visit Reason: Shortness of breath; SOB Arrival: 06/17/2020 15:26:17 Discharge: 06/17/2020 17:58:00 LOS: 000 02:32 Check In: 06/17/2020 15:26:17 Checkout:06/17/2020 17:58:00 Address: [address] [place] [address] PCP: Ericka Muniz MD PROVIDER INFORMATION Provider [...] Adult Follow-Up: With: Address: When: Ericka Muniz [address] [place] [address] [facility] (1) Within 3 to 5 days DIAGNOSIS: Viral URI with cough Patient Understands: Yes - Patient/family/caregiver verbalizes understanding of instructions given Comment:[facility] HospitalED Note - Physicianon 93-32-9358LD Note - PhysicianPatient: GEREMIAS MELCHOR Age: 54 [...] % Auto Lymph % 25 % Auto [place] % 7 % Auto Eos % 2.3 % Auto Baso % 0.5 % Neut Abs# 6.0 x103/mcL Lymph Abs# 2.3 x103/mcL [place] Abs# 0.7 x103/mcL Eos Abs# 0.2 x103/mcL [...] and Plan Diagnosis Viral URI with cough ([id number] J06.9, Discharge, Medical) Plan Condition: Stable. Disposition: [...] [Verified on: 06/17/2020 18:26 EST] Otilia Francois [facility] HospitalED Note-Nursingon 24-83-1245CK Note-NursingPatient arrives to the ED via private [...] still feels more short of breath than normal.[facility] Patient Education Noteon 36-95-0422BX Patient Education NoteEducation Materials Upper Respiratory Infection, [...] to help relieve symptoms, such as: ? Ntie-wvl-hjvbhad cold medicines. ? Cough suppressants. Coughing is [...] other clear broths. General instructions ? Take ours-fqf-occzrrb and prescription medicines only as told by [...] and water are not available, use hand director talent acquisition. ? Avoid touching your mouth, face, eyes, [...] 12/21/2001 Document Revised: 07/05/2019 Document Reviewed: 02/10/2018 [employer] Patient Education ? 2019 [employer]. ENT Cough, Adult Coughing is a reflex [...] these instructions at home: Medicines ? Take xgyz-cfj-qwoqwga and prescription medicines only as told by [...] a condition that needs treatment. ? Take emzf-vmg-salbzkm and prescription medicines only as told by [...] 12/24/2011 Document Revised: 07/16/2019 Document Reviewed: 07/16/2019 [employer]abre Patient Education ? 2019 [employer].[facility] HospitalED Patient Summaryon 37-70-4938JV Patient SummaryCleveland Clinic Foundation - Emergency Department [address] [place] [address] PATIENT DISCHARGE INSTRUCTIONS Patient Information Name: GEREMIAS MELCHOR Age: 54 Years Date of : 1965 Reason For Visit: Shortness of breath; SOB Arrival Time: 06/17/2020 15:26:17 Primary Care Physician: Ericka Muniz MD Attending Physician: Landon Vegas MD Comment: Visit Diagnosis: Diagnoses This Visit Shortness of breath ([id number]) Viral URI with cough (J06.9) Prescription Information: If you have been given a prescription for narcotics, seek immediate medical attention if you have any difficulty breathing or any sudden status changes such as confusion andsleepiness. If you or anyone you know is experiencing suicidal thoughts, mental health, alcohol and/or drug addiction problems; contact the [facility] 31/01 Crisis Hotline -Text 4HHCL to 381095. If you received any narcotics, sedation, or [...] legal documents With: Address: When: Ericka Muniz [address] [place], [place] [id number] Business (1) Within 3 to 5 days Medication Information: The exam and treatment you received today in the [facility] were for an urgent problem and are not intended as complete care. It is important for you to follow up with a doctor, nurse practitioner, or physician?s retail sales assistant for ongoing care. If your symptoms [...] can reach you if necessary. [facility] Emergency Department has provided you with a complete list of medications post discharge. Please inform your cota/provider of your visit and for further instruction [...] to help relieve symptoms, such as: ? Gflj-kba-uackhvs cold medicines. ? Cough suppressants. Coughing is [...] other clear broths. General instructions ? Take rvql-olw-yrpcaro and prescription medicines only as told by [...] and water are not available, use hand director talent acquisition. ? Avoid touching your mouth, face, eyes, [...] 12/21/2001 Document Revised: 07/05/2019 Document Reviewed: 02/10/2018 Exabre Patient Education ? 2020 [employer] Inc. Cough, Adult Coughing is a reflex [...] these instructions at home: Medicines ? Take pqlw-yxf-yszosez and prescription medicines only as told by [...] a condition that needs treatment. ? Take jzvb-imt-gdfrmun and prescription medicines only as told by [...] 12/24/2011 Document Revised: 07/16/2019 Document Reviewed: 07/16/2019 [employer] Patient Education ? 2019 Exabre Inc. Viruses or Bacteria What?s got you [...] Centers for Disease Control and Prevention March 2014[facility] Extra Red 41-85-3831Pbrd CollectedThe Jewish HospitalComment on above: Performed By: #### [id number], [id number], [id number], [id number], [id number] #### [facility] (DEFAULT) [address] [place] [address]GlS [facility] 14-32-8418Wajrsjhc I High Sensitivity4 pg/mL Normal<=20[facility] FoundationComment on above:Result Comment: Male Baseline Delta 1Hr (Note pg/mL=ng/L) <20pg/mL 50-60% >20pg/mL 20% Female Baseline Delta 1Hr <15pg/mL 50-60% >15pg/mL 20% Other Baseline Delta 1Hr <18ng/mL 50-60% >18ng/mL 20% (Citizen Of [place] College of Cardiology Guidelines February 2018)Performed By: #### [id number], [id number], [id number], [id number], [id number] #### [facility] (DEFAULT) [address] [place], [place] [address]Rulifcvyo Panelon 84-38-0422MQT [Catalytic activity/Vol] 50.0 U/LInvalid Interpretation CodeWest BendTouchmedia Bilirubin [Mass/Vol]0.3 mg/dL0.0-1.0[place] BendTouchmedia HbA1c (Bld) [Mass fraction]6.6 %4.3-6.3Bformerly west seattle psychiatric hospitalStrongSteam HbA1c (Bld) [Mass fraction]6.60 %Invalid Interpretation CodeWest BendTouchmedia Albumin [Mass/Vol]4.50 g/dLInvalid Interpretation Code [place] [employer] AST [Catalytic activity/Vol]31.0 U/LInvalid Interpretation CodeIndicee No Panel Informationon 04-08-20206.6Invalid Interpretation Code4.3-6.3Bglenbeigh hospital [employer] 0.3Invalid Interpretation Code0.0-1.0[place] BendTouchmedia NegativeInvalid Interpretation CodeNegativeIndicee Otheron 87-98-1200WjhzpyfzFypwdpqbZkujxzoyyIndicee 4+Invalid Interpretation CodeNegativeIndicee ClearInvalid Interpretation CodeClearBglenbeigh hospital [employer] normalInvalid Interpretation CodenormalWest BendTouchmedia yellowInvalid Interpretation CodeyellowCronote 5730-7418783-96XpfvglzrgCronote 6Invalid Interpretation Code5.0-9.0Cronote 31Invalid Interpretation Code0-40Indicee 78Invalid Interpretation Mjtu39-728WjsjycpvvIndicee 1.010Invalid Interpretation Code1.003-1.030Indicee 1.5Invalid Interpretation Code1.0-2.4Bamery hospital and clinicIgY [employer] 4.5Invalid Interpretation Code3.7-4.5BWeeleo 6.5Invalid Interpretation Code6.3-7.9BWeeleo 143Invalid Interpretation CodeIndicee 115.0 mg/dLInvalid Interpretation Code<140Cronote lsInvalid Interpretation CodeCronote MRI KNEE RIGHT WO CONTRASTon 89-30-5724AUM KNEE RIGHT WO CONTRASTEXAMINATION: MRI OF THE [...] by: Jos Martins MD 03/25/20 Final resultNormalMercy Greenwich Hospital free edge degeneration of the medial [...] ligaments, suggestive of sprains. 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 No definite tear identified. [place], KYH[facility] SHOULDER RIGHT WO CONTRASTon 38-46-5059MKQ SHOULDER RIGHT WO CONTRASTEXAMINATION: MRI OF THE [...] approximately 7 mm in greatest AP dimension. Klxolhwi-le-kheusf underlying supraspinatus tendinopathy and granulation tissue. Ypmp-zo-xakhbptq underlying infraspinatus tendinopathy. Mild subscapularis tendinopathy. Teres [...] 6. No paralabral cyst formation. GLENOHUMERAL JOINT: Shbe-zi-tkwveirr glenohumeral chondromalacia. Small amount of fluid in [...] dimension with tear gap measuring 1.5 cm. Kyzkruri-zb-dcxmlm underlying supraspinatus tendinopathy and granulation tissue. Vrwh-qi-sgdmynig underlying infraspinatus tendinopathy. 2. Mild subscapularis tendinopathy. 3. Mild atrophy and fatty degeneration of subscapularis. 4. Mild diffuse labral degeneration. Degenerative tearing along the superior labrum. 5. Skpx-cg-kyqtduqo glenohumeral chondromalacia. 6. Mild degenerative change of the right AC joint. 7. Prior biceps tenodesis. 8. Susceptibility artifact and marrow edema surrounding a stress riser at the anterior humeral head. Interpreted by: Rodrigo Purcell MD Signed by: Rodrigo Purcell MD 02/12/20 Final resultNoACMC Healthcare System Glenbeigh1. Prior rotator cuff repair. Region of full-thickness tearing of the critical zone along mid and posterior supraspinatus measuring 7 mm in greatest AP dimension with tear gap measuring 1.5 cm. Lqlzsqyu-ow-noakld underlying supraspinatus tendinopathy and granulation tissue. Mrzg-yt-ycwckych underlying infraspinatus tendinopathy. 2. Mild subscapularis tendinopathy. 3. Mild atrophy and fatty degeneration of subscapularis. 4. Mild diffuse labral degeneration. Degenerative tearing along the superior labrum. 5. Rxkd-ts-nthtjuae glenohumeral chondromalacia. 6. Mild degenerative change of the right AC joint. 7. Prior biceps tenodesis. 8. Susceptibility artifact and marrow edema surrounding a stress riser at the anterior humeral head.[place], KYEXAMINATION: MRI OF THE RIGHT SHOULDER WITHOUT [...] approximately 7 mm in greatest AP dimension. Xinmdder-ao-oycemp underlying supraspinatus tendinopathy and granulation tissue. Sswq-ul-mnzcyuqp underlying infraspinatus tendinopathy. Mild subscapularis tendinopathy. Teres [...] 6. No paralabral cyst formation. GLENOHUMERAL JOINT: Dssq-hs-htbifdeo glenohumeral chondromalacia. Small amount of fluid in [...] grossly unremarkable in appearance. No right axillary lymphadenopathy.[facility]- [place], KYEd, [facility] Incoming Radiant Results From [employer] - 02/12/2020 3:46 PM EDT EXAMINATION: MRI [...] approximately 7 mm in greatest AP dimension. Rgxnqvwh-xe-dirasn underlying supraspinatus tendinopathy and granulation tissue. Gktl-gj-slpcqlqk underlying infraspinatus tendinopathy. Mild subscapularis tendinopathy. Teres [...] 6. No paralabral cyst formation. GLENOHUMERAL JOINT: Uyrs-oz-ucovkqpf glenohumeral chondromalacia. Small amount of fluid in [...] dimension with tear gap measuring 1.5 cm. Yiupwvez-mx-ntitcq underlying supraspinatus tendinopathy and granulation tissue. Uecv-zl-imycpbfu underlying infraspinatus tendinopathy. 2. Mild subscapularis tendinopathy. 3. Mild atrophy and fatty degeneration of subscapularis. 4. Mild diffuse labral degeneration. Degenerative tearing along the superior labrum. 5. Nnhs-uv-dleeuned glenohumeral chondromalacia. 6. Mild degenerative change of the right AC joint. 7. Prior biceps tenodesis. 8. Susceptibility artifact and marrow edema surrounding a stress riser at the anterior humeral head. [place], KYGlucose, Whole Bloodon 71-85-6704Tmumtrc [Mass/Vol]113 mg/dL High74 - 100 mg/dLCenterville, JACQUELINEInterpretation and review of laboratory resultsAbnormalCenterville, KYBUNon 87-86-4507Kwyu nitrogen [Mass/Vol]16 mg/dL6 - 20 mg/dLCenterville, KYBUN (Urea N)on 62-17-2406Kgej nitrogen [Mass/Vol]16 mg/dLNormal6-20Doctors HospitalComment on above:Performed By: #### HCT, BUN, CREG, GLU, LYTE #### [address] [place] [address] Provider Relations Consultant: Sandeep Mac w/GFRon 12-26-2019(cont.)NormalDoctors HospitalComment on above:Result Comment: Average GFR for 50-59 years old: 93 mL/min/1.73sq m Chronic Kidney Disease: <60 mL/min/1.73sq m Kidney failure: <15 mL/min/1.73sq m eGFR calculated using average adult body mass. Additional eGFR calculator available at: http://www.Veeam [employer]/multiple_crcl_2011.htmPerformed By: #### HCT, BUN, CREG, GLU, LYTE #### [address] [place] [address] Provider Relations Consultant: Sandeep Mac [Mass/Vol]1.15 mg/dLNormal0.70-1.20 Doctors HospitalComment on above:Performed By: #### HCT, BUN, CREG, GLU, LYTE #### [address] [place] [address] Provider Relations Consultant: Domingo Rayo MDGFR, Amer>60Normal>60[facility] Comment on above:Performed By: #### HCT, BUN, CREG, GLU, LYTE #### [address] [place] [address] Provider Relations Consultant: Domingo Rayo MDGFR,non Amer>60Normal>60Doctors HospitalComment on above:Performed By: #### HCT, BUN, CREG, GLU, LYTE #### [place] [address] [place], [place] [address] Provider Relations Consultant: Domingo Rayo, MDStaging:[facility], BeachwoodComment on above:Result Comment: Stage 1: Some kidney damage normal GFR Stage 2: Mild kidney damage GFR 60-89 Stage 3: Moderate kidney damage GFR 30-59 Stage 4: Severe kidney damage GFR 15-29 Stage 5: Severe kidney damage GFR <15 ESRD - chronic treatment by dialysis or transplantPerformed By: #### HCT, BUN, CREG, GLU, LYTE #### [address] [place] [address] Provider Relations Consultant: Domingo Rayo, SUNNYreatinine, Serumon 52-19-8766Bzqouvhjrb [Mass/Vol]1.15 mg/dL0.7 - 1.2 mg/dLCenterville, KYGFR >60 >60 mL/minCenterville, KYGFR Non->60>60 mL/minCenterville, KYElectrolyte Panelon 94-74-9373Ftysg gap [Moles/Vol]17 mmol/L9 - 17 mmol/L [place], KYChloride [Moles/Vol]95 mmol/LLow98 - 107 mmol/[facility], KYCO2 [Moles/Vol]24 mmol/L20 - 31 mmol/[facility], KYPotassium [Moles/Vol]3.7 mmol/L3.7 - 5.3 mmol/[facility], KYSodium [Moles/Vol]136 mmol/L135 - 144 mmol/[facility], KYElectrolyteson 37-81-7381Ygezg gap [Moles/Vol]17 mmol/LNormal9-17Doctors HospitalComment on above:Performed By: #### HCT, BUN, CREG, GLU, LYTE #### [facility] [address] [place], [place] [address] Provider Relations Consultant: SUNNY Machloride [Moles/Vol]95 mmol/LOix57-060DbnigDoctors HospitalComment on above:Performed By: #### HCT, BUN, CREG, GLU, LYTE #### [address] [place], [facility]83 Provider Relations Consultant: Domingo Rayo MDCO2 [Moles/Vol]24 mmol/TRvbygf06-32Fwjaq Tiffin HospitalComment on above:Performed By: #### HCT, BUN, CREG, GLU, LYTE #### [address] [place] [address] Provider Relations Consultant: Domingo Rayo MDPotassium [Moles/Vol]3.7 mmol/LNormal3.7-5.3Mercy Lakota HospitalComment on above:Performed By: #### HCT, BUN, CREG, GLU, LYTE #### [address] [place] [address] Provider Relations Consultant: Domingo Rayo MDSodium [Moles/Vol]136 mmol/MVogpdb476-467OpgidDoctors HospitalComment on above:Performed By: #### HCT, BUN, CREG, GLU, LYTE #### [address] [place] [address] Provider Relations Consultant: Domingo Rayo MDGlucoseon 21-83-6740Pfymdrc [Mass/Vol]107 mg/dL Nvpi51-67Cfxnd [facility] Children'S Medical CenterComment on above:Performed By: #### HCT, BUN, CREG, GLU, LYTE #### [address] [place] [address] Provider Relations Consultant: Pramod Mac, randomon 47-84-4445Ogemjsi [Mass/Vol]107 mg/mCKyhl43 - 99 mg/dLUC Health JACQUELINEHematocriton 12-27-0041Qojjubahdk (Bld) [Volume fraction]47.4 %Emjgqe14.7-50.3Mercy Lakota HospitalComment on above:Performed By: #### HCT, BUN, CREG, GLU, LYTE #### [address] [place] [address] Provider Relations Consultant: Domingo Rayo MDHematocrisandra (Bld) [Volume fraction]47.4 %40.7 - 50.3 %[place], KYMetabolic Panelon 44-01-3607WOW/1.73 sq M predicted among non-blacks MDRD (S/P/Bld) [Vol rate/Area][facility] on above:Average GFR for 50-59 years old: 93 mL/min/1.73sq m Chronic Kidney Disease: <60 mL/min/1.73sq m Kidney failure: <15 mL/min/1.73sq m eGFR calculated using average adult body mass. Additional eGFR calculator available at: http://www.[employer]_crcl_2012.htm Stage 1: Some kidney damage normal GFR Stage 2: Mild kidney damage GFR 60-89 Stage 3: Moderate kidney damage GFR 30-59 Stage 4: Severe kidney damage GFR 15-29 Stage 5: Severe kidney damage GFR <15 ESRD - chronic treatment by dialysis or transplant Otheron 56-64-5343Iyfbkpwjbeoggo and review of laboratory resultsAbnormWood County Hospital, JACQUELINECOVID-19on 88-15-9496VLWO-CoV-2Not DetectedNot [place], KYComformerly [facility] on above: The specimen is NEGATIVE for SARS-CoV-2, the novel coronavirus associated with COVID-19. A negative result does not rule out COVID-19. This test has been authorized by the FDA under an Emergency Use Authorization (EUA) for use by authorized laboratories. Fact sheet for Healthcare Providers: https://www.fda.gov/media/338272/download Fact sheet for Patients: https://www.fda.gov/media/115444/download METHODOLOGY: RT-PCR SARS-CoV-2, PCRCent[place], FJGCAO-GyT-1, RapidLake County Memorial [facility] .NASOPHARYNGEAL SWABCent[place], EIEKZG-DrQ-1lk 19-45-2999PIZC-CoV-2,Rapid [facility] on above:Performed By: #### COVID #### [facility] [address] [place] [address] Provider Relations Consultant: Sam Jacobs MD [address] [place] [address] Provider Relations Consultant: LORENA MacCTLLRQ-RoY-9HsvwpqAfzplWayne HealthCare Main CampusComment on above:Performed By: #### COVID #### [place] [address] [place] [address] Provider Relations Consultant: Sam Jacobs MD [facility] [address] [place] [address] [address] [place] [address] Provider Relations Consultant: Doni Macot DetectedNormalNOTDESheltering Arms HospitalComformerly [facility] on above:Result Comment: The specimen is NEGATIVE for SARS-CoV-2, the novel coronavirus associated with COVID-19. A negative result does not rule out COVID-19. This test has been authorized by the FDA under an Emergency Use Authorization (EUA) for use by authorized laboratories. Fact sheet for Healthcare Providers: https://www.fda.gov/media/483249/download Fact sheet for Patients: https://www.fda.gov/media/188578/download METHODOLOGY: RT-PCRPerformed By: #### COVID #### [facility] [address] [place] [address] Provider Relations Consultant: Sam Jacobs MD [address] [place] [address] Provider Relations Consultant: Domingo Rayo MDEKG 12 Lead 78-91-2131Cwkzge Qtfu11DQTLkbvt Health- [place], KYP Obar55trfxbxzPxfwj Health- [place], KYP-R Nhhdjszo450 msMercy Health- [place], KYQ-T Pzullajr747 msMercy Health- [place], KYQRS Epkstpxf51 msMercy Health- [place], KYQTc Calculation (Rosalva)445 msMercy Health- [place], KYR Tpfo18nsllijiWmovl Health- [place], KYT Wqrh02nxngroaLpavs Health- [place], KYVentricular Lmdo74INCHzniq Health- [place], KYNormal sinus rhythm Normal ECG No previous ECGs available Confirmed by Federico Burks MD ([id number]) on 12/24/2019 4:59:35 [facility] JACQUELINEBrett Falcon Incoming Ekg Results From [employer] - 12/24/2019 4:59 PM EDT Normal sinus rhythm Normal ECG No previous ECGs available Confirmed by Federico Burks MD ([id number]) on 12/24/2019 4:59:35 PMCenterville, JACQUELINE XXKZ-DgS-2ah 29-71-3104FVDJ-CoV-2 Source.NASOPHARYNGEAL SWABNoACMC Healthcare System GlenbeighComment on above:Performed By: #### COVID #### [facility] [employer] [address] [place] [address] Provider Relations Consultant: Sam Jacobs MD [facility] [address] [facility] [place] [address] Provider Relations Consultant: Domingo Rayo MDLaboratory - Chemistry and Chemistry - challenge on 50-90-9744Zlnxnevpq Ql (U)NegativeInvalid Interpretation CodeNegative [facility] [employer] Urobilinogen (U) [Mass/Vol]normalInvalid Interpretation CodenormalCronote Laboratory - Hematology and Cell countson 12-20-2019 Hemoglobin Ql (U)NegativeInvalid Interpretation CodeNegativeIndicee Laboratory - Urinalysison 70-46-9804Hljtztuil esterase Test strip Ql (U)NegativeInvalid Interpretation CodeNegativeIndicee Nitrite Ql (U)NegativeInvalid Interpretation Code NegativeIndicee Protein Ql (U)NegativeInvalid Interpretation Code NegativeIndicee Metabolic Panelon 56-52-2324Bttox gap [Moles/Vol]20 mmol/LInvalid Interpretation Bnly08-77GqlsottdoIndicee Calcium [Mass/Vol]9.10 mg/dLInvalid Interpretation Code 8.5-10.8Bglenbeigh hospital [employer] [facility] Chloride [Moles/Vol]97.0 mmol/LInvalid Interpretation Cmdf301-324Hduyzywyp [place] [employer] [facility] CO2 [Moles/Vol]23.0 mmol/LInvalid Interpretation Code 23-30[employer] [facility] Creatinine [Mass/Vol]1.0 mg/dLInvalid Interpretation Code0.5-1.5Bglenbeigh hospital [employer] [facility] GFR/1.73 sq M predicted among non-blacks MDRD (S/P/Bld) [Vol rate/Area]78 mL/min/{1.73_m2}Invalid Interpretation CodeColgate [employer] [facility] Glucose [Mass/Vol]90.0 mg/dLInvalid Interpretation Code 80-117West BendITADSecurity [facility] HbA1c (Bld) [Mass fraction]6.80 %Invalid Interpretation Code4.3-6.3Bglenbeigh hospital [employer] [facility] Potassium [Moles/Vol]4.10 mmol/LInvalid Interpretation Code3.5-5.3Bglenbeigh hospital [employer] [facility] Sodium [Moles/Vol]136.0 mmol/LInvalid Interpretation Utwh258-099SuinboutqITADSecurity [facility] Urea nitrogen [Mass/Vol]16.0 mg/dLInvalid Interpretation Code7-25West BendITADSecurity [facility] Urea nitrogen/Creatinine [Mass ratio]16 mg/mgInvalid Interpretation Code6-20West BendITADSecurity [facility] Otheron 35-52-3041Kiibakwwj Ql (U)NegativeNegative [place] [employer] [facility] [facility] Glucose Test strip (U) [Mass/Vol]4+Invalid Interpretation CodeNegativeWest BendTouchmedia Hemoglobin Ql (U)NegativeNegativeColgate [employer] Nitrite Ql (U)NegativeNegativeColgate [employer] pH (U)5 [pH]Invalid Interpretation Code5.0-9.0[place] Protein Ql (U)NegativeNegativeWest BendTouchmedia Urobilinogen Test strip (U) [Mass/Vol]normalnormal [place] [employer] 148BlanchTouchmedia 148.0 mg/dLInvalid Interpretation CodeWest BendTouchmedia Urinalysison 83-43-1663Xvrycea (U)clearInvalid Interpretation CodeClearBlanmercy medical center [facility] [employer] Color (U)yellowInvalid Interpretation Codeyellow [employer] Ketones Ql (U)1+Invalid Interpretation CodeNegative [place] [employer] Leukocyte esterase Test strip Ql (U)NegativeNegative Monroe[facility]am Specific gravity (U) [Rel density]1.010Invalid Interpretation Code1.003-1.030[place] Bend[facility] Cardiacon 35-38-1367Lhfgryawust [Mass/Vol]153.0 mg/dL Invalid Interpretation Code0-200C[facility]ote Cholesterol in HDL [Mass/Vol]56.0 mg/dLInvalid Interpretation Tlyw90-272AmejrwmruTouchmedia Cholesterol in LDL [Mass/Vol]80.0 mg/dLInvalid Interpretation Code0-130BlanchTouchmedia Triglyceride [Mass/Vol]84.0 mg/dLInvalid Interpretation Vpno91-713ExcxsysniTouchmedia Metabolic Panelon 82-93-9321Zuomtmi [Mass/Vol]4.60 g/dL Invalid Interpretation Code3.7-4.5Bformerly [facility] hospitalV[facility] ALP [Catalytic activity/Vol]75.0 U/LInvalid Interpretation Cgml27-062CrkpfsaybTouchmedia ALT [Catalytic activity/Vol]54.0 U/LInvalid Interpretation Code0-50[place] Anion gap [Moles/Vol]18 mmol/LInvalid Interpretation Lvhd35-92FethafopoTouchmedia AST [Catalytic activity/Vol]37.0 U/LInvalid Interpretation Code0-40[place] Bilirubin [Mass/Vol]0.50 mg/dLInvalid Interpretation Code0.0-1.0West BendITADSecurity [facility] Calcium [Mass/Vol]9.40 mg/dLInvalid Interpretation Code 8.5-10.8Bformerly [facility] hospitalVascular Magn[facility] Chloride [Moles/Vol]99.0 mmol/LInvalid Interpretation Jeem266-660KhrhzebnlITADSecurity [facility] CO2 [Moles/Vol]27.0 mmol/LInvalid Interpretation Code 23-30[facility] Creatinine [Mass/Vol]1.0 mg/dLInvalid Interpretation Code0.5-1.5BBabyage [facility] GFR/1.73 sq M predicted among non-blacks MDRD (S/P/Bld) [Vol rate/Area]78 mL/min/{1.73_m2}Invalid Interpretation CodeIndicee Glucose [Mass/Vol]120.0 mg/dLInvalid Interpretation Sxei58-968FsoossxckCronote HbA1c (Bld) [Mass fraction]6.80 %Invalid Interpretation Code4.3-6.3[facility]am[facility] hospital and clinicIgY [employer] Potassium [Moles/Vol]4.0 mmol/LInvalid Interpretation Code3.5-5.3[facility] hospital and clinicIgY [facility] [employer] Protein [Mass/Vol]7.80 g/dLInvalid Interpretation Code 6.3-7.9BWeeleo Sodium [Moles/Vol]140.0 mmol/LInvalid Interpretation Txrw470-266WujekaajlCronote Urea nitrogen [Mass/Vol]13.0 mg/dLInvalid Interpretation Code7-25Indicee Urea nitrogen/Creatinine [Mass ratio]13 mg/mgInvalid Interpretation Code6-20Indicee Otheron 26-76-9321Vafnxko (U) [Mass/Vol]22.3Invalid Interpretation Code<17.0Cronote Albumin/Globulin [Mass ratio]1.4 {ratio}Invalid Interpretation Code1.0-2.4BWeeleo Cholesterol in VLDL [Mass/Vol]17.0 mg/dLInvalid Interpretation Code0-39Indicee Cholesterol.total/Cholesterol in HDL [Mass ratio]3 {ratio}Invalid Interpretation CodeIndicee 148Indicee 148.0 mg/dLInvalid Interpretation CodeIndicee 54.0 U/L0-50[place] Urinalysison 37-42-1207Phvcsmz/Creatinine DL <= 20 mg/L (U) [Mass ratio]29.8 mg/gInvalid Interpretation Code0.0-30.0[place] Creatinine (U) [Mass/Vol]74.90 mg/dLInvalid Interpretation CodeNot Estab. mg/dLBglenbeigh hospital [employer] Metabolic Panelon 28-52-2810Tydaq gap [Moles/Vol]16 mmol/LInvalid Interpretation Srll67-37KkowhmsxuTouchmedia Calcium [Mass/Vol]9.70 mg/dLInvalid Interpretation Code 8.5-10.8Bformerly [facility] hospitalStrongSteam Chloride [Moles/Vol]100.0 mmol/LInvalid Interpretation Yibv363-672KyjshdrntTouchmedia CO2 [Moles/Vol]27.0 mmol/LInvalid Interpretation Code 23-30[place] Creatinine [Mass/Vol]1.10 mg/dLInvalid Interpretation Code0.5-1.5Bformerly [facility] hospitalStrongSteam GFR/1.73 sq M predicted among non-blacks MDRD (S/P/Bld) [Vol rate/Area]70 mL/min/{1.73_m2}Invalid Interpretation CodeWest BendTouchmedia Glucose [Mass/Vol]137.0 mg/dLInvalid Interpretation Hyqn33-450SbhmirbciTouchmedia Potassium [Moles/Vol]4.0 mmol/LInvalid Interpretation Code3.5-5.3[facility] clinicIgY [facility] [employer] Sodium [Moles/Vol]139.0 mmol/LInvalid Interpretation Iufz048-372MnmabgbtnITADSecurity [facility] Urea nitrogen [Mass/Vol]26.0 mg/dLInvalid Interpretation Code7-25[place] Urea nitrogen/Creatinine [Mass ratio]24 mg/mgInvalid Interpretation Code6-20West BendITADSecurity [facility] Laboratory - Chemistry and Chemistry - challengeon 40-91-0011Dyacyoduq Ql (U)NegativeInvalid Interpretation CodeNegativeWest BendITADSecurity [facility] Ketones Ql (U)NegativeInvalid Interpretation Code NegativeWest BendTouchmedia Urobilinogen (U) [Mass/Vol]normalInvalid Interpretation CodenormalWest BendITADSecurity [facility] Laboratory - Urinalysison 22-20-6526Oucdjyn Ql (U) NegativeInvalid Interpretation CodeNegativeWest BendITADSecurity [facility] Metabolic Panelon 94-45-8136Dbarn gap [Moles/Vol]18 mmol/LInvalid Interpretation Bvun37-66EasdguimgDAQRI [facility] Calcium [Mass/Vol]9.70 mg/dLInvalid Interpretation Code 8.5-10.8Bformerly [facility] hospitalStrongSteam Chloride [Moles/Vol]97.0 mmol/LInvalid Interpretation Rdnw499-869KjtjatyyiITADSecurity [facility] CO2 [Moles/Vol]25.0 mmol/LInvalid Interpretation Code 23-30C[facility]ote Creatinine [Mass/Vol]2.30 mg/dLInvalid Interpretation Code0.5-1.5[facility] clinicIgY [facility] [employer] [facility] [employer] GFR/1.73 sq M predicted among non-blacks MDRD (S/P/Bld) [Vol rate/Area]30 mL/min/{1.73_m2}Invalid Interpretation CodeCronote Glucose [Mass/Vol]231.0 mg/dLInvalid Interpretation Uwwo34-356StomredacIndicee HbA1c (Bld) [Mass fraction]7.60 %Invalid Interpretation Code4.3-6.3[employer] & [employer] Capital Managementeast [facility] hospitalStrongSteam Potassium [Moles/Vol]4.50 mmol/LInvalid Interpretation Code3.5-5.3Bformerly [facility] hospitalStrongSteam Sodium [Moles/Vol]135.0 mmol/LInvalid Interpretation Ulhz602-895QhohtidzpCronote Urea nitrogen [Mass/Vol]34.0 mg/dLInvalid Interpretation Code7-25[place]Touch[facility] Urea nitrogen/Creatinine [Mass ratio]15 mg/mgInvalid Interpretation Code6-20C[facility] Otheron 71-77-5935Xpdyamtsa Ql (U)NegativeNegative Indicee Gamma glutamyl transferase [Catalytic activity/Vol]72 U/LInvalid Interpretation Code7-51[place]Touch[facility] Glucose Test strip (U) [Mass/Vol]4+Invalid Interpretation CodeNegativeIndicee Hemoglobin Ql (U)TraceInvalid Interpretation Code NegativeCronote Nitrite Ql (U)NegativeNegativeCronote pH (U)5 [pH]Invalid Interpretation Code5.0-9.0C[facility] Protein Ql (U)1+Invalid Interpretation CodeNegative Indicee Urobilinogen Test strip (U) [Mass/Vol]normalnormal Monroe[employer] 171BlanchTouchmedia 171.0 mg/dLInvalid Interpretation CodeWest BendTouchmedia Urinalysison 86-26-5596Dvbuqjo (U)ClearInvalid Interpretation CodeClearBlanmercy medical center [facility] [employer] Color (U)yellowInvalid Interpretation Codeyellow [employer] Ketones Ql (U)NegativeNegativeWest BendTouchmedia Leukocyte esterase Test strip Ql (U)TraceInvalid Interpretation CodeNegativeWest BendTouchmedia Specific gravity (U) [Rel density]1.015Invalid Interpretation Code1.003-1.030[place]Touch[facility] Cardiacon 94-60-4751Oxwioxocyij [Mass/Vol]164.0 mg/dL Invalid Interpretation Code0-200Indicee Cholesterol in HDL [Mass/Vol]33.0 mg/dLInvalid Interpretation Fztf81-878TcpqndtpnTouchmedia Cholesterol in LDL [Mass/Vol]89.0 mg/dLInvalid Interpretation Code0-130Indicee Triglyceride [Mass/Vol]208.0 mg/dLInvalid Interpretation Sjwy82-208BsvznerfzCronote Hematologyon 33-37-9418Wzqezzngjo (Bld) [Volume fraction]44.80 %Invalid Interpretation Code37.8-51.0Indicee Hemoglobin (Bld) [Mass/Vol]15.30 g/dLInvalid Interpretation Code12.6-17.0Indicee MCH (RBC) [Entitic mass]31.40 pgInvalid Interpretation Code25.7-33.8BWeeleo MCV (RBC) [Entitic vol]92.0 fLInvalid Interpretation Code81.0-100.2BWeeleo Platelets (Bld) [#/Vol]316.0 10*3/uLInvalid Interpretation Funf134-256YylbzescfCronote RBC (Bld) [#/Vol]4.870 10*6/uLInvalid Interpretation Code4.34-5.61C[facility] WBC (Bld) [#/Vol]8.50 10*3/uLInvalid Interpretation Code3.9-10.3BWeeleo Imm/Pathon 13-03-2015Ojkateha specific Ag [Mass/Vol] 0.59 ng/mLInvalid Interpretation Code0.00-4.00C[facility] Laboratory - Chemistry and Chemistry - challengeon 20-84-6280Vqgdfjkhb Ql (U)NegativeInvalid Interpretation CodeNegativeIndicee Ketones Ql (U)NegativeInvalid Interpretation Code NegativeIndicee Urobilinogen (U) [Mass/Vol]normalInvalid Interpretation CodenormalIndicee Laboratory - Hematology and Cell countson 05-22-2019 Hemoglobin Ql (U)NegativeInvalid Interpretation CodeNegativeIndicee Laboratory - Urinalysison 59-54-9890Cddsydoeu esterase Test strip Ql (U)NegativeInvalid Interpretation CodeNegativeIndicee Nitrite Ql (U)NegativeInvalid Interpretation Code NegativeIndicee Protein Ql (U)NegativeInvalid Interpretation Code NegativeCronote Metabolic Panelon 91-51-2641Cqubsnv [Mass/Vol]4.30 g/dL Invalid Interpretation Code3.7-4.5BWeeleo ALP [Catalytic activity/Vol]79.0 U/LInvalid Interpretation Pqnc91-706ExsxynxpgCronote ALT [Catalytic activity/Vol]23.0 U/LInvalid Interpretation Code0-50C[facility]ote Anion gap [Moles/Vol]16 mmol/LInvalid Interpretation Amdk40-07UjnpilhcoCronote AST [Catalytic activity/Vol]15.0 U/LInvalid Interpretation Code0-40Indicee Bilirubin [Mass/Vol]0.40 mg/dLInvalid Interpretation Code0.0-1.0C[facility]ote Calcium [Mass/Vol]9.60 mg/dLInvalid Interpretation Code 8.5-10.8BWeeleo Chloride [Moles/Vol]97.0 mmol/LInvalid Interpretation Bush271-830FfpqpfroaIndicee CO2 [Moles/Vol]27.0 mmol/LInvalid Interpretation Code 23-30Indicee Creatinine [Mass/Vol]1.10 mg/dLInvalid Interpretation Code0.5-1.5BWeeleo GFR/1.73 sq M predicted among non-blacks MDRD (S/P/Bld) [Vol rate/Area]70 mL/min/{1.73_m2}Invalid Interpretation CodeIndicee Glucose [Mass/Vol]101.0 mg/dLInvalid Interpretation Nuym99-385NlrpjeujaIndicee Potassium [Moles/Vol]4.30 mmol/LInvalid Interpretation Code3.5-5.3BWeeleo Protein [Mass/Vol]7.60 g/dLInvalid Interpretation Code 6.3-7.9BWeeleo Sodium [Moles/Vol]136.0 mmol/LInvalid Interpretation Bzfr298-877XilrmqyxfIndicee Urea nitrogen [Mass/Vol]21.0 mg/dLInvalid Interpretation Code7-25Indicee Urea nitrogen/Creatinine [Mass ratio]19 mg/mgInvalid Interpretation Code6-20Indicee Otheron 32-55-1135Dvwelhp/Globulin [Mass ratio]1.3 {ratio}Invalid Interpretation Code1.0-2.4BWeeleo Bilirubin Ql (U)NegativeNegativeIndicee Cholesterol in VLDL [Mass/Vol]42.0 mg/dLInvalid Interpretation Code0-39Indicee Cholesterol.total/Cholesterol in HDL [Mass ratio]5 {ratio}Invalid Interpretation GillBus Collection time (Andrei) [Date/time]1:00 pmInvalid Interpretation CodeIndicee Erythrocyte distribution width (RBC) [Ratio]12.40 % Invalid Interpretation Code11.5-15.5BWeeleo Glucose Test strip (U) [Mass/Vol]4+Invalid Interpretation CodeNegativeIndicee Hemoglobin Ql (U)NegativeNegativeWest BendTouchmedia MCHC (RBC) [Mass/Vol]34.20 g/dLInvalid Interpretation Code32.0-36.0[place] Nitrite Ql (U)NegativeNegativeWest BendTouchmedia pH (U)5 [pH]Invalid Interpretation Code5.0-9.0[place] Platelet mean volume (Bld) [Entitic vol]9.40 fLInvalid Interpretation Code8.3-11.5Bglenbeigh hospital [employer] Protein Ql (U)NegativeNegUNC HealthTouchmedia Urobilinogen Test strip (U) [Mass/Vol]normalnormal MonroeQuaam 23.0 U/L0-50[place]Touch[facility] Urinalysison 46-05-4749Yoktjge (U)ClearInvalid Interpretation CodeClearBglenbeigh hospital [employer] Color (U)yellowInvalid Interpretation Codeyellow [facility]Qu[facility] Ketones Ql (U)NegativeNegativeWest BendTouchmedia Leukocyte esterase Test strip Ql (U)NegativeNegative [place] Specific gravity (U) [Rel density]1.015Invalid Interpretation Code1.003-1.030[place] BendTouchmedia Laboratory - Chemistry and Chemistry - challengeon 15-74-3845Echfenapg Ql (U)NegativeInvalid Interpretation CodeNegUNC HealthTouchmedia Urobilinogen (U) [Mass/Vol]normalInvalid Interpretation CodenormalWest BendTouchmedia Laboratory - Hematology and Cell countson 04-09-2019 Hemoglobin Ql (U)NegativeInvalid Interpretation CodeNegativeCronote Laboratory - Urinalysison 35-53-4134Pronqkyoy esterase Test strip Ql (U)NegativeInvalid Interpretation CodeNegativeWest BendTouchmedia Nitrite Ql (U)NegativeInvalid Interpretation Code NegativeCronote Metabolic Panelon 85-38-1204Bgyqwax [Mass/Vol]4.50 g/dL Invalid Interpretation Code3.7-4.5Bformerly [facility] hospitalStrongSteam ALP [Catalytic activity/Vol]73.0 U/LInvalid Interpretation Ozza23-066UrvnncudfCronote ALT [Catalytic activity/Vol]47.0 U/LInvalid Interpretation Code0-50[place] Anion gap [Moles/Vol]17 mmol/LInvalid Interpretation Taev33-41LienznpgiCronote AST [Catalytic activity/Vol]41.0 U/LInvalid Interpretation Code0-40[place] Bilirubin [Mass/Vol]0.50 mg/dLInvalid Interpretation Code0.0-1.0C[facility] Calcium [Mass/Vol]9.30 mg/dLInvalid Interpretation Code 8.5-10.8[facility] hospital [facility] clinicIgY [employer] Chloride [Moles/Vol]97.0 mmol/LInvalid Interpretation Yarq743-613MhdcqgyggCronote CO2 [Moles/Vol]27.0 mmol/LInvalid Interpretation Code 23-30Indicee Creatinine [Mass/Vol]0.90 mg/dLInvalid Interpretation Code0.5-1.5BWeeleo GFR/1.73 sq M predicted among non-blacks MDRD (S/P/Bld) [Vol rate/Area]88 mL/min/{1.73_m2}Invalid Interpretation CodeCronote Glucose [Mass/Vol]186.0 mg/dLInvalid Interpretation Urja18-257UpspuanrfIndicee HbA1c (Bld) [Mass fraction]7.70 %Invalid Interpretation Code4.3-6.3BWeeleo Potassium [Moles/Vol]4.0 mmol/LInvalid Interpretation Code3.5-5.3BWeeleo Protein [Mass/Vol]7.60 g/dLInvalid Interpretation Code 6.3-7.9BWeeleo Sodium [Moles/Vol]137.0 mmol/LInvalid Interpretation Mhgd621-963YtyqaexupIndicee Urea nitrogen [Mass/Vol]16.0 mg/dLInvalid Interpretation Code7-25Indicee Urea nitrogen/Creatinine [Mass ratio]18 mg/mgInvalid Interpretation Code6-20C[facility] Otheron 81-99-6385Khviznv (U) [Mass/Vol]48.5Invalid Interpretation Code<17.0Indicee Albumin/Globulin [Mass ratio]1.5 {ratio}Invalid Interpretation Code1.0-2.4BWeeleo Bilirubin Ql (U)NegativeNegativeCronote Gamma glutamyl transferase [Catalytic activity/Vol]52 U/LInvalid Interpretation Code7-51[employer] Glucose Test strip (U) [Mass/Vol]4+Invalid Interpretation CodeNegativeWest BendTouchmedia Hemoglobin Ql (U)NegativeNegativeColgate [employer] Nitrite Ql (U)NegativeNegativeColgate [employer] pH (U)6 [pH]Invalid Interpretation Code5.0-9.0[employer] [facility] Protein Ql (U)1+Invalid Interpretation CodeNegative [employer] [facility] Urobilinogen Test strip (U) [Mass/Vol]normalnormal [employer] 174BlanchTouchmedia 47.0 U/L0-50[employer] [facility] 174.0 mg/dLInvalid Interpretation CodeWest BendITADSecurity [facility] Urinalysison 06-71-8561Ccwgmpi/Creatinine DL <= 20 mg/L (U) [Mass ratio]70.7 mg/gInvalid Interpretation Code0.0-30.0[employer] [facility] Clarity (U)clearInvalid Interpretation CodeClear [employer] Color (U)yellowInvalid Interpretation Codeyellow [employer] [facility] Creatinine (U) [Mass/Vol]68.60 mg/dLInvalid Interpretation CodeNot Estab. mg/dLBlanmercy medical center [facility]ced [facility] [employer] Ketones Ql (U)2+Invalid Interpretation CodeNegative MonroeQua[facility] Leukocyte esterase Test strip Ql (U)NegativeNegative MonroeQu[facility] Specific gravity (U) [Rel density]1.010Invalid Interpretation Code1.003-1.030[employer] [employer] Laboratory - Chemistry and Chemistry - challengeon 15-15-2882Wvdofqrnc Ql (U)NegativeInvalid Interpretation CodeNegativeColgate [employer] Urobilinogen (U) [Mass/Vol]normalInvalid Interpretation CodenormalColgate [employer] Laboratory - Hematology and Cell countson 12-08-2018 Hemoglobin Ql (U)NegativeInvalid Interpretation CodeNegativeWest BendTouchmedia Laboratory - Urinalysison 99-33-8121Fykvzvwuh esterase Test strip Ql (U)NegativeInvalid Interpretation CodeNegUNC HealthTouchmedia Nitrite Ql (U)NegativeInvalid Interpretation Code NegativeWest BendTouchmedia Protein Ql (U)NegativeInvalid Interpretation Code NegativeWest BendTouchmedia Metabolic Panelon 32-95-8158Gdoyydx mass pzfp929.0 mg/dLInvalid Interpretation Cbgi54-412LepfypklgTouchmedia Hemoglobin A1c/Hemoglobin.total mass fraction (Bld)8.80 %Invalid Interpretation Code4.3-6.3Blanmercy [facility] [employer] Otheron 21-70-9409Cwjgwpgdl Ql (U)NegativeNegative [employer] Glucose Test strip mass conc (U)4+Invalid Interpretation CodeNegativeWest BendTouchmedia Hemoglobin Ql (U)NegativeNegativeWest BendTouchmedia Nitrite Ql (U)NegativeNegUNC HealthTouch[facility] pH (U)6 [pH]Invalid Interpretation Code5.0-9.0C[facility] Protein Ql (U)NegativeNegativeCronote Urobilinogen Test strip mass conc (U)normalnormal Indicee 206Indicee 206.0 mg/dLInvalid Interpretation CodeCronote Urinalysison 02-03-5740Irfekbm Nom (U)ClearInvalid Interpretation CodeClearBlanmercy medical center [facility] [employer] Color Nom (U)yellowInvalid Interpretation Codeyellow [place] Ketones Ql (U)1+Invalid Interpretation CodeNegative Indicee Leukocyte esterase Test strip Ql (U)NegativeNegative Indicee Specific gravity Relative Density (U)1.015Invalid Interpretation Code1.003-1.030Cron[facility] Cardiacon 63-69-4357Ifxmdpigqsz in HDL mass conc35.0 mg/dLInvalid Interpretation Ojqc92-726KznlwdukvIndicee Cholesterol in LDL mass conc90.0 mg/dLInvalid Interpretation Code0-130C[facility] Cholesterol mass iioj363.0 mg/dLInvalid Interpretation Code0-200Indicee Triglyceride mass uyus621.0 mg/dLInvalid Interpretation Xlwt05-482AsobuzebbCronote Hematologyon 56-16-5040Ydkcgthwsl Volume Fraction (Bld) 44.0 %Invalid Interpretation Code37.8-51.0C[facility]ote Hemoglobin mass conc (Bld)15.20 g/dLInvalid Interpretation Code12.6-17.0[place]Touch[facility] MCH Entitic mass (RBC)32.0 pgInvalid Interpretation Code25.7-33.8Bformerly [facility] hospitalStrongSteam MCV Entitic volume (RBC)92.60 fLInvalid Interpretation Code81.0-100.2Bformerly [facility] hospitalStrongSteam Platelets #/vol (Bld)244.0 10*3/uLInvalid Interpretation Cxov881-371VobcsbmaaTouchmedia RBC #/vol (Bld)4.750 10*6/uLInvalid Interpretation Code 4.34-5.61[place] WBC #/vol (Bld)6.80 10*3/uLInvalid Interpretation Code 3.9-10.3[facility] hospital [facility] clinicIgY [facility] [employer] Imm/Pathon 83-46-6685Nzlilroc specific Ag mass conc0.61 ng/mLInvalid Interpretation Code0.00-4.00[place] Metabolic Panelon 80-64-2833Cgxxwfe mass conc4.50 g/dL Invalid Interpretation Code3.7-4.5[facility] clinicIgY [employer] ALP enzyme act/vol75.0 U/LInvalid Interpretation Code 31-155[place] ALT enzyme act/vol66.0 U/LInvalid Interpretation Code 0-50C[facility] Anion gap molar conc20 mmol/LInvalid Interpretation Nopu82-26EcqksswtzTouchmedia AST enzyme act/vol39.0 U/LInvalid Interpretation Code 0-40Indicee Bilirubin mass conc0.40 mg/dLInvalid Interpretation Code0.0-1.0[place] Calcium mass conc9.40 mg/dLInvalid Interpretation Code 8.5-10.8Bglenbeigh hospital [employer] Chloride molar conc96 mmol/LInvalid Interpretation Code 100-112West BendITADSecurity [facility] CO2 molar conc28 mmol/LInvalid Interpretation Tvwv12-63 [employer] [facility] Creatinine mass conc0.90 mg/dLInvalid Interpretation Code0.5-1.5Bglenbeigh hospital [employer] GFR/1.73 sq M predicted among non-blacks MDRD vol rate/area (S/P/Bld)88 mL/min/{1.73_m2}Invalid Interpretation CodeWest BendITADSecurity [facility] Glucose mass axub151.0 mg/dLInvalid Interpretation Code 80-117[place] BendTouch[facility] Hemoglobin A1c/Hemoglobin.total mass fraction (Bld) 10.50 %Invalid Interpretation Code4.3-6.3Bformerly [facility] hospitalStrongSteam Potassium molar conc4.1 mmol/LInvalid Interpretation Code3.5-5.3Bglenbeigh hospital [employer] Protein mass conc7.60 g/dLInvalid Interpretation Code 6.3-7.9Bglenbeigh hospital [employer] [facility] Sodium molar slsz178 mmol/LInvalid Interpretation Code 135-148[place] Urea nitrogen mass conc13.0 mg/dLInvalid Interpretation Code7-25[place] Urea nitrogen/Creatinine mass ratio14 mg/mgInvalid Interpretation Code6-20[facility] BendTouch[facility] No Panel Informationon 58-11-97355951Gzanawl Interpretation Niil288-367LnhlnjyamStrongSteam Otheron 67-52-8034Lwechbs mass conc (U)64.2Invalid Interpretation Code<17.0[place] Albumin/Globulin mass ratio1.5 {ratio}Invalid Interpretation Code1.0-2.4[facility] clinicIgY [facility] [employer] [facility] Cholesterol in VLDL mass conc79.0 mg/dLInvalid Interpretation Code0-39[place] Cholesterol.total/Cholesterol in HDL mass ratio6 {ratio}Invalid Interpretation CodeWest BendTouchmedia Cobalamin (Vitamin B12) mass tewl8169 pg/dK526-466 [employer] Erythrocyte distribution width Ratio (RBC)11.70 % Invalid Interpretation Code11.5-15.5BWeeleo MCHC mass conc (RBC)34.50 g/dLInvalid Interpretation Code32.0-36.0[place]Touch[facility] Platelet mean volume Entitic volume (Bld)9.80 fLInvalid Interpretation Code8.3-11.5BWeeleo 255BlanchTouchmedia 18.9Invalid Interpretation Code>5.4BWeeleo 255.0 mg/dLInvalid Interpretation CodeWest BendTouchmedia 66.0 U/L0-50[place] Urinalysison 25-38-1468Kjcgzda/Creatinine DL <= 20 mg/L mass ratio (U)334.4 mg/gInvalid Interpretation Code0.0-30.0C[facility] Creatinine mass conc (U)19.20 mg/dLInvalid Interpretation CodeNot Estab. mg/dLBamery hospital and clinicIgY [employer] [facility] [employer] Laboratory - Urinalysison 05-30-0248Gparbst Test strip (U) [Mass/Vol]NegativeInvalid Interpretation CodenegativeCronote Protein (U) [Mass/Vol]NegativeInvalid Interpretation CodenegativeWest BendTouchmedia Metabolic Panelon 12-00-6055Pdqzorv mass nlpx684.0 mg/dLInvalid Interpretation Tqnd56-436PafstjilpCronote Hemoglobin A1c/Hemoglobin.total mass fraction (Bld)9.50 %Invalid Interpretation Code4.3-6.3[facility] clinicIgY [employer] [employer] [facility] [employer] Otheron 47-83-3588Ublgzrj Test strip mass conc (U) NegativenegativeCronote 226BlanchTouchmedia 226.0 mg/dLInvalid Interpretation CodeCronote Urinalysison 29-49-9305Wxnnimy mass conc (U)Negative negativeWest BendTouchmedia Cardiacon 00-48-5600Vonfgcnfmdb in HDL mass conc30.0 mg/dLInvalid Interpretation Hoqa23-662LodwsastfCronote Cholesterol mass xyeb869.0 mg/dLInvalid Interpretation Code0-200C[facility] Triglyceride mass jggl360.0 mg/dLInvalid Interpretation Xjlw22-068LdypvrqowCronote Metabolic Panelon 56-59-8665Jotaqzy mass conc4.50 g/dL Invalid Interpretation Code3.7-4.5BWeeleo ALP enzyme act/vol83.0 U/LInvalid Interpretation Code 31-155[facility] [employer] [facility] ALT enzyme act/vol49.0 U/LInvalid Interpretation Code 0-50[place] BendTouchmedia Anion gap molar conc20 mmol/LInvalid Interpretation Gqxo68-35[employer] [facility] AST enzyme act/vol22.0 U/LInvalid Interpretation Code 0-40[place] [facility] Bilirubin mass conc0.70 mg/dLInvalid Interpretation Code0.0-1.0West BendITADSecurity [facility] Calcium mass conc9.70 mg/dLInvalid Interpretation Code 8.5-10.8[facility] [employer] Chloride molar conc93 mmol/LInvalid Interpretation Code 100-112West BendITADSecurity [facility] CO2 molar conc27 mmol/LInvalid Interpretation Aamj68-48 [employer] [facility] Creatinine mass conc0.90 mg/dLInvalid Interpretation Code0.5-1.5[facility] [employer] [facility] GFR/1.73 sq M predicted among non-blacks MDRD vol rate/area (S/P/Bld)88 mL/min/{1.73_m2}Invalid Interpretation CodeWest BendTouchmedia Glucose mass mhxe036.0 mg/dLInvalid Interpretation Code 80-117West BendITADSecurity [facility] Hemoglobin A1c/Hemoglobin.total mass fraction (Bld)10.0 %Invalid Interpretation Code4.3-6.3Bformerly [facility]Strong[facility]am Potassium molar conc4.0 mmol/LInvalid Interpretation Code3.5-5.3Bformerly [facility] hospitalStrong[facility] Protein mass conc7.70 g/dLInvalid Interpretation Code 6.3-7.9[facility] clinicIgY [employer] Sodium molar uqwg947 mmol/LInvalid Interpretation Code 135-148C[facility] Urea nitrogen mass conc13.0 mg/dLInvalid Interpretation Code7-25[place] Urea nitrogen/Creatinine mass ratio14 mg/mgInvalid Interpretation Code6-20[place] Otheron 00-08-0606Cvwyost mass conc (U)141.8Invalid Interpretation Code<17.0C[facility] Albumin/Globulin mass ratio1.4 {ratio}Invalid Interpretation Code1.0-2.4[facility] clinicIg[facility] [employer] Cholesterol in VLDL mass trdc046.0 mg/dLInvalid Interpretation Code0-39[place] Cholesterol.total/Cholesterol in HDL mass ratio9 {ratio}Invalid Interpretation CodeCronote 240BlanchTouchmedia 49.0 U/L0-50[place] 240.0 mg/dLInvalid Interpretation CodeWest BendTouchmedia Urinalysison 17-68-1759Nyysrxp/Creatinine DL <= 20 mg/L mass ratio (U)179.5 mg/gInvalid Interpretation Code0.0-30.0[facility] Creatinine mass conc (U)79.0 mg/dLInvalid Interpretation CodeNot Estab. mg/dLBamery hospital and clinicIgY [employer] Laboratory - Chemistry and Chemistry - challengeon 90-06-0796Biabamxqh Ql (U)NegativeInvalid Interpretation CodeNegativeCronote Ketones Ql (U)NegativeInvalid Interpretation Code NegativeWest BendTouchmedia Urobilinogen (U) [Mass/Vol]normalInvalid Interpretation CodenormalColgate [employer] Laboratory - Hematology and Cell countson 11-25-2017 Hemoglobin Ql (U)NegativeInvalid Interpretation CodeNegativeColgate [employer] Laboratory - Urinalysison 39-76-7689Catsrsnio esterase Test strip Ql (U)NegativeInvalid Interpretation CodeNegativeWest BendTouchmedia Nitrite Ql (U)NegativeInvalid Interpretation Code NegativeWest BendTouchmedia Protein Ql (U)NegativeInvalid Interpretation Code NegativeWest BendTouch[facility] Metabolic Panelon 57-56-2391Yzitgwz mass bgbc920.0 mg/dLInvalid Interpretation Bzah03-389Hhuvqrovv [employer] Hemoglobin A1c/Hemoglobin.total mass fraction (Bld)8.60 %Invalid Interpretation Code4.3-6.3[facility] [employer] Otheron 02-63-6346Zvdbrfnkz Ql (U)NegativeNegative [employer] [facility] Glucose Test strip mass conc (U)4+Invalid Interpretation CodeNegativeWest BendTouch[facility] Hemoglobin Ql (U)NegativeNegativeWest BendTouchmedia Nitrite Ql (U)NegativeNegUNC HealthTouchmedia pH (U)5 [pH]Invalid Interpretation Code4.5-7.8Bformerly [facility] hospitalStrong[facility]am Protein Ql (U)NegativeNegUNC HealthTouchmedia Urobilinogen Test strip mass conc (U)normalnormal MonroeQuaam 24940436ElmhnowmtTouchmedia 200.0 mg/dLInvalid Interpretation CodeWest BendTouchmedia Urinalysison 42-46-9829Kjwckmn Nom (U)ClearInvalid Interpretation CodeClearBlanmercy medical center [facility]ced [facility] [employer] Color Nom (U)yellowInvalid Interpretation Codeyellow [employer] Ketones Ql (U)NegativeNegativeWest BendTouchmedia Leukocyte esterase Test strip Ql (U)NegativeNegative [facility] Specific gravity Relative Density (U)1.010Invalid Interpretation Code1.003-1.029[place] Cardiacon 36-63-0366Sgbjrvdnffj in HDL mass conc39.0 mg/dLInvalid Interpretation Myah28-320KgrsrhlehCronote Cholesterol in LDL mass yafj288.0 mg/dLInvalid Interpretation Code0-130[place] Cholesterol mass ybel433.0 mg/dLInvalid Interpretation Code0-200[place] Triglyceride mass aicr619.0 mg/dLInvalid Interpretation Hqaz86-817GocqyatkgTouchmedia Metabolic Panelon 68-86-1797EUS enzyme act/vol52.0 U/L Invalid Interpretation Code0-50C[facility] Anion gap molar conc17 mmol/LInvalid Interpretation Qnvw97-09FsjougdctCronote AST enzyme act/vol38.0 U/LInvalid Interpretation Code 0-40Indicee Calcium mass conc9.50 mg/dLInvalid Interpretation Code 8.5-10.8Bformerly [facility] hospitalStrong[facility]am Chloride molar conc98 mmol/LInvalid Interpretation Code 100-112[place] CO2 molar conc29 mmol/LInvalid Interpretation Zqjg72-14 [employer] Creatinine mass conc0.90 mg/dLInvalid Interpretation Code0.5-1.5Bformerly [facility] hospitalStrong[facility]am GFR/1.73 sq M predicted among non-blacks MDRD vol rate/area (S/P/Bld)88 mL/min/{1.73_m2}Invalid Interpretation CodeWest BendTouchmedia Glucose mass bkjo665.0 mg/dLInvalid Interpretation Code 80-117[place] Hemoglobin A1c/Hemoglobin.total mass fraction (Bld)8.40 %Invalid Interpretation Code4.3-6.3[facility] clinicIgY [employer] Potassium molar conc3.8 mmol/LInvalid Interpretation Code3.5-5.3Bformerly [facility] hospitalStrongSteam Sodium molar dwup156 mmol/LInvalid Interpretation Code 135-148[place] Urea nitrogen mass conc16.0 mg/dLInvalid Interpretation Code7-25[facility] Urea nitrogen/Creatinine mass ratio18 mg/mgInvalid Interpretation Code6-20[facility] Otheron 95-43-3657Foeyzon mass conc (U)160.5Invalid Interpretation Code<17.0C[facility] Cholesterol in VLDL mass conc60.0 mg/dLInvalid Interpretation Code0-39Indicee Cholesterol.total/Cholesterol in HDL mass ratio6 {ratio}Invalid Interpretation CodeWest BendTouchmedia 194[place] [employer] 194.0 mg/dLInvalid Interpretation CodeWest BendTouchmedia 52.0 U/L0-50[place] Urinalysison 32-59-0669Ixshxyl/Creatinine DL <= 20 mg/L mass ratio (U)105.5 mg/gInvalid Interpretation Code0.0-30.0[place] Creatinine mass conc (U)152.10 mg/dLInvalid Interpretation CodeNot Estab. mg/dLBglenbeigh hospital [employer] Laboratory - Urinalysison 55-76-0919Tkqneez (U) [Mass/Vol]NegativeInvalid Interpretation CodenegativeWest BendTouchmedia Metabolic Panelon 13-43-4543Shjtrnc mass yxfu248.0 mg/dLInvalid Interpretation Dmwh50-752WfklivnntTouchmedia Hemoglobin A1c/Hemoglobin.total mass fraction (Bld)8.30 %Invalid Interpretation Code4.3-6.3Bformerly [facility] hospitalStrongSteam Otheron 32-25-6294Hzjplhy Test strip mass conc (U)trace Invalid Interpretation CodenegativeWest BendTouchmedia pH (U)6.0 [pH]Invalid Interpretation Code4.5-7.8 [employer] 192BlanchTouchmedia 192.0 mg/dLInvalid Interpretation CodeWest BendTouchmedia Urinalysison 64-58-8529Xmxhvsb mass conc (U)Negative negativeWest BendTouchmedia Laboratory - Chemistry and Chemistry - challengeon 71-30-2261Kysuhspop Ql (U)NegativeInvalid Interpretation CodeNegativeIndicee Ketones Ql (U)NegativeInvalid Interpretation Code NegativeCronote Urobilinogen (U) [Mass/Vol]normalInvalid Interpretation CodenormalWest BendTouchmedia Laboratory - Hematology and Cell countson 03-29-2017 Hemoglobin Ql (U)NegativeInvalid Interpretation CodeNegativeSportlobsterst. john's episcopal hospital south shoreTouchmedia Laboratory - Urinalysison 84-29-9716Cqdbihwpd esterase Test strip Ql (U)NegativeInvalid Interpretation CodeNegativeIndicee Nitrite Ql (U)NegativeInvalid Interpretation Code NegativeCronote Protein Ql (U)NegativeInvalid Interpretation Code NegativeWest BendTouchmedia Metabolic Panelon 55-88-4861Euutuui mass aeok890.0 mg/dLInvalid Interpretation Degx41-680BefayqonjCronote Hemoglobin A1c/Hemoglobin.total mass fraction (Bld)8.0 %Invalid Interpretation Code4.3-6.3Blanmercy [facility] [employer] Otheron 33-48-4557Umnqnnq mass conc (U)< 12.0Invalid Interpretation Code< 17.0 ug/mLWest BendTouchmedia Bilirubin Ql (U)NegativeNegativeIndicee Glucose Test strip mass conc (U)4+Invalid Interpretation CodeNegativeIndicee Hemoglobin Ql (U)NegativeNegativeIndicee Nitrite Ql (U)NegativeNegst. elias specialty hospitalIndicee pH (U)6 [pH]Invalid Interpretation Code4.5-7.8[facility] [employer] Protein Ql (U)NegativeNegativeTr[facility] Health System [facility] Urobilinogen Test strip mass conc (U)normalnormal [facility] 183BlanchITADSecurity [facility] 183.0 mg/dLInvalid Interpretation CodeWest BendITADSecurity [facility] Urinalysison 02-81-5017Lhbnkba Nom (U)clearInvalid Interpretation CodeClearBKettering Health Washington Township M[facility] Incub[facility] Color Nom (U)yellowInvalid Interpretation Codeyellow [facility] Creatinine mass conc (U)14.20 mg/dLInvalid Interpretation CodeNot Estab. mg/dLBglenbeigh hospital [employer] [facility] Ketones Ql (U)NegativeNegativeWest BendEDP Biotech [place] [employer] Leukocyte esterase Test strip Ql (U)NegativeNegative [facility] Specific gravity Relative Density (U)1.015Invalid Interpretation Code1.003-1.029[employer] [facility] Laboratory - Chemistry and Chemistry - challengeon 32-63-4971Vtjjqkgoo Ql (U)NegativeInvalid Interpretation CodeNegativeWest BendITADSecurity [facility] Ketones Ql (U)NegativeInvalid Interpretation Code NegativeWest BendITADSecurity [facility] Urobilinogen (U) [Mass/Vol]normalInvalid Interpretation CodenormalWest BendITADSecurity [facility] Laboratory - Urinalysison 39-22-7721Gegzlfhma esterase Test strip Ql (U)NegativeInvalid Interpretation CodeNegativeWest BendTouchmedia Nitrite Ql (U)NegativeInvalid Interpretation Code NegativeWest BendTouchmedia Metabolic Panelon 26-88-4397Nhapbzj mass sohb982.0 mg/dLInvalid Interpretation Ddqs24-731OnovihgyfTouchmedia Hemoglobin A1c/Hemoglobin.total mass fraction (Bld)6.90 %Invalid Interpretation Code4.3-6.3Bformerly [facility] hospitalStrongSteam Otheron 75-46-5436Idkxcqelq Ql (U)NegativeNegative [facility] Glucose Test strip mass conc (U)4+Invalid Interpretation CodeNegUNC HealthITADSecurity [facility] Hemoglobin Ql (U)TraceInvalid Interpretation Code NegativeWest BendTouchmedia Nitrite Ql (U)NegativeNegativeWest BendITADSecurity [facility] pH (U)6 [pH]Invalid Interpretation Code4.5-7.8Bformerly [facility] hospitalStrongSteam Protein Ql (U)1+Invalid Interpretation CodeNegative MonroeMon[employer] [facility] Urobilinogen Test strip mass conc (U)normalnormal MonroeMon[employer] [facility] 151BlanchITADSecurity [facility] 151.0 mg/dLInvalid Interpretation [facility] SpringsITADSecurity [facility] Urinalysison 47-86-4702Dolgbiq Nom (U)clearInvalid Interpretation CodeClearBformerly [facility] hospitalStrongSteam Color Nom (U)yellowInvalid Interpretation Codeyellow [facility] Ketones Ql (U)NegativeNegativeSportlobsterst. john's episcopal hospital south shoreTouchmedia Leukocyte esterase Test strip Ql (U)NegativeNegative MonroeMon[employer] [facility] Specific gravity Relative Density (U)1.010Invalid Interpretation Code1.003-1.029[place]Touch[facility] Cardiacon 42-55-7160Tsykjfugokp in HDL mass conc32.0 mg/dLInvalid Interpretation Wuha65-022YmeztinbdTouchmedia Cholesterol in LDL mass conc80.0 mg/dLInvalid Interpretation Code0-130[place] Cholesterol mass oicy167.0 mg/dLInvalid Interpretation Code0-200[place] Triglyceride mass inyx475.0 mg/dLInvalid Interpretation Jnks77-608FzdptnlyoTouchmedia Metabolic Panelon 32-11-9506DHI enzyme act/vol48.0 U/L Invalid Interpretation Code0-50West BendITADSecurity [facility] Anion gap molar conc20 mmol/LInvalid Interpretation Nfav51-16FvkfypenvTouchmedia AST enzyme act/vol22.0 U/LInvalid Interpretation Code 0-40[place] Calcium mass conc9.70 mg/dLInvalid Interpretation Code 8.5-10.8Bformerly [facility] hospitalStrongSteam Chloride molar qgbn599 mmol/LInvalid Interpretation Bjji206-089YujneqxusTouchmedia CO2 molar conc26 mmol/LInvalid Interpretation Fsko55-13 [employer]Mon[employer] [facility] Creatinine mass conc1.10 mg/dLInvalid Interpretation Code0.5-1.5B[facility] hospital [facility] clinicIgY [employer] GFR/1.73 sq M predicted among non-blacks MDRD vol rate/area (S/P/Bld)70 mL/min/{1.73_m2}Invalid Interpretation CodeIndicee Glucose mass ileq332.0 mg/dLInvalid Interpretation Code 80-117Indicee Hemoglobin A1c/Hemoglobin.total mass fraction (Bld)7.10 %Invalid Interpretation Code4.3-6.3Bformerly [facility] hospitalStrongSteam Potassium molar conc4.1 mmol/LInvalid Interpretation Code3.5-5.3Bformerly [facility] hospitalStrongSteam Sodium molar nrlx511 mmol/LInvalid Interpretation Code 135-148Indicee Urea nitrogen mass conc18.0 mg/dLInvalid Interpretation Code7-25C[facility] Urea nitrogen/Creatinine mass ratio16 mg/mgInvalid Interpretation Code6-20Indicee Otheron 95-35-7227Wbizikcajwn in VLDL mass conc68.0 mg/dLInvalid Interpretation Code0-39Ind[employer]e Cholesterol.total/Cholesterol in HDL mass ratio6 {ratio}Invalid Interpretation GillBus 157Indicee 48.0 U/L0-50C[facility] 157.0 mg/dLInvalid Interpretation CodeIndicee Laboratory - Chemistry and Chemistry - challengeon 29-98-6173Cajmzrdpn Ql (U)NegativeInvalid Interpretation CodeNegativeIndicee Urobilinogen (U) [Mass/Vol]normalInvalid Interpretation CodenormalIndicee Laboratory - Hematology and Cell countson 07-27-2016 Hemoglobin Ql (U)NegativeInvalid Interpretation CodeNegativeIndicee Laboratory - Urinalysison 54-79-0600Hlgwdvkps esterase Test strip Ql (U)NegativeInvalid Interpretation CodeNegativeIndicee Nitrite Ql (U)NegativeInvalid Interpretation Code NegativeCronote Protein Ql (U)NegativeInvalid Interpretation Code NegativeCronote Metabolic Panelon 15-86-9716Spvaz gap molar conc19 mmol/LInvalid Interpretation Znqy46-67YcafxqsmjIndicee Calcium mass conc9.90 mg/dLInvalid Interpretation Code 8.5-10.8BWeeleo Chloride molar conc96 mmol/LInvalid Interpretation Code 100-112Indicee CO2 molar conc29 mmol/LInvalid Interpretation Qpbt92-44 [employer] Creatinine mass conc1.10 mg/dLInvalid Interpretation Code0.5-1.5BWeeleo GFR/1.73 sq M predicted among non-blacks MDRD vol rate/area (S/P/Bld)70 mL/min/{1.73_m2}Invalid Interpretation CodeIndicee Glucose mass pzgh604.0 mg/dLInvalid Interpretation Code 80-117Indicee Hemoglobin A1c/Hemoglobin.total mass fraction (Bld)7.50 %Invalid Interpretation Code4.3-6.3BWeeleo Potassium molar conc3.9 mmol/LInvalid Interpretation Code3.5-5.3BWeeleo Sodium molar ydsh481 mmol/LInvalid Interpretation Code 135-148[place]Touch[facility] Urea nitrogen mass conc14.0 mg/dLInvalid Interpretation Code7-25[employer] Urea nitrogen/Creatinine mass ratio13 mg/mgInvalid Interpretation Code6-20[employer] Otheron 87-81-0695Hotvpbo mass conc (U)< 12.0Invalid Interpretation Code< 17.0 ug/mLWest BendTouchmedia Bilirubin Ql (U)NegativeNegativeWest BendTouchmedia Glucose Test strip mass conc (U)4+Invalid Interpretation CodeNegUNC HealthITADSecurity [facility] Hemoglobin Ql (U)NegativeNegativeWest BendTouchmedia Nitrite Ql (U)NegativeNegUNC HealthITADSecurity [facility] pH (U)5 [pH]Invalid Interpretation Code4.5-7.8[facility] [employer] [facility] Protein Ql (U)NegativeNegativeWest BendTouchmedia Urobilinogen Test strip mass conc (U)normalnormal [employer] [facility] 169BlanchITADSecurity [facility] 169.0 mg/dLInvalid Interpretation CodeWest BendITADSecurity [facility] Thyroidon 06-70-7715R4 mass conc5.55 ug/dLInvalid Interpretation Code5.00-12.00[place] Thyrotropin Qn2.71 m[IU]/LInvalid Interpretation Code 0.50-4.00[place] Urinalysison 98-34-2406Krvbzsy Nom (U)clearInvalid Interpretation CodeClearBglenbeigh hospital [employer] Color Nom (U)yellowInvalid Interpretation Codeyellow [facility] Creatinine mass conc (U)85.80 mg/dLInvalid Interpretation CodeNot Estab. mg/dLBformerly [facility] hospitalStrongSteam Ketones Ql (U)1+Invalid Interpretation CodeNegative [facility] Leukocyte esterase Test strip Ql (U)NegativeNegative [facility] Specific gravity Relative Density (U)1.015Invalid Interpretation Code1.003-1.029[place] BendTouch[facility] Laboratory - Chemistry and Chemistry - challengeon 91-40-3049Ktrculdir Ql (U)NegativeInvalid Interpretation CodeNegativeWest BendTouchmedia Ketones Ql (U)NegativeInvalid Interpretation Code NegativeWest BendTouchmedia Urobilinogen (U) [Mass/Vol]normalInvalid Interpretation CodenormalWest BendTouchmedia Laboratory - Hematology and Cell countson 03-04-2016 Hemoglobin Ql (U)NegativeInvalid Interpretation CodeNegativeWest BendTouchmedia Laboratory - Urinalysison 64-93-3778Qmllocyvo esterase Test strip Ql (U)NegativeInvalid Interpretation CodeNegativeIndicee Nitrite Ql (U)NegativeInvalid Interpretation Code NegativeIndicee Protein Ql (U)NegativeInvalid Interpretation Code NegativeCronote Metabolic Panelon 53-53-1262Itdan gap molar conc16 mmol/LInvalid Interpretation Huav32-93HaozbkdaiIndicee Calcium mass conc10.30 mg/dLInvalid Interpretation Code 8.5-10.8BWeeleo Chloride molar conc99 mmol/LInvalid Interpretation Code 100-112Cronote CO2 molar conc30 mmol/LInvalid Interpretation Abnh01-99 [facility] Creatinine mass conc1.0 mg/dLInvalid Interpretation Code0.5-1.5Bam[facility] hospital [facility] clinicIgY [employer] GFR/1.73 sq M predicted among non-blacks MDRD vol rate/area (S/P/Bld)79 mL/min/{1.73_m2}Invalid Interpretation CodeWest BendTouchmedia Glucose mass nnuy278.0 mg/dLInvalid Interpretation Code 80-117[place] [facility]Touch[facility] Hemoglobin A1c/Hemoglobin.total mass fraction (Bld)6.70 %Invalid Interpretation Code4.3-6.3Bam[facility] hospital [facility] clinicIgY [employer] Potassium molar conc4.1 mmol/LInvalid Interpretation Code3.5-5.3[employer] Capital Managementeast [facility] regional hospitalStrongSteam Sodium molar mqjl122 mmol/LInvalid Interpretation Code 135-148[place]Touch[facility] Urea nitrogen mass conc12.0 mg/dLInvalid Interpretation Code7-25C[facility] Urea nitrogen/Creatinine mass ratio12 mg/mgInvalid Interpretation Code6-20C[facility] Otheron 80-62-1172Hstqbasja Ql (U)NegativeNegative [facility] Glucose Test strip mass conc (U)4+Invalid Interpretation CodeNegativeWest BendTouchmedia Hemoglobin Ql (U)NegativeNegativeWest BendTouchmedia Nitrite Ql (U)NegativeNegativeSportlobsterst. john's episcopal hospital south shoreTouchmedia pH (U)6 [pH]Invalid Interpretation Code4.5-7.8Bformerly [facility] hospitalStrongSteam Protein Ql (U)NegativeNegativeSportlobsterst. john's episcopal hospital south shoreTouchmedia Urobilinogen Test strip mass conc (U)normalnormal [facility] 146BlanchTouchmedia 146.0 mg/dLInvalid Interpretation [facility] SpringsTouchmedia Urinalysison 74-96-6144Xcmyxvf Nom (U)clearInvalid Interpretation CodeClearBformerly [facility] hospitalStrongSteam Color Nom (U)yellowInvalid Interpretation Codeyellow MonroeQu[facility] Ketones Ql (U)NegativeNegativeSportlobsterst. john's episcopal hospital south shoreTouchmedia Leukocyte esterase Test strip Ql (U)NegativeNegative Ind[employer] Specific gravity Relative Density (U)1.015Invalid Interpretation Code1.003-1.029West BendTouchmedia Laboratory - Chemistry and Chemistry - challengeon 49-89-1322Blbnzohsv Ql (U)NegativeInvalid Interpretation CodeNegativeIndicee Urobilinogen (U) [Mass/Vol]normalInvalid Interpretation CodenormalWest BendTouchmedia Laboratory - Hematology and Cell countson 11-26-2015 Hemoglobin Ql (U)NegativeInvalid Interpretation CodeNegTraxpay Laboratory - Urinalysison 11-58-9984Jrgprqiuv esterase Test strip Ql (U)NegativeInvalid Interpretation CodeNegst. elias specialty hospitalBlanchTouchmedia Nitrite Ql (U)NegativeInvalid Interpretation Code NegativeWest BendTouchmedia Protein Ql (U)NegativeInvalid Interpretation Code NegativeWest BendITADSecurity [facility] Metabolic Panelon 12-32-5232Amsfhaq mass dcee648.0 mg/dLInvalid Interpretation Skle02-341OimzebrfsTouchmedia Hemoglobin A1c/Hemoglobin.total mass fraction (Bld)9.70 %Invalid Interpretation Code4.3-6.3Bglenbeigh hospital [employer] Otheron 41-61-2144Gdgxero mass conc (U)< 12.0Invalid Interpretation Code< 4.0-17.0[place] Bilirubin Ql (U)NegativeNegativeWest BendITADSecurity [facility] Glucose Test strip mass conc (U)4+Invalid Interpretation CodeNegativeWest BendITADSecurity [facility] Hemoglobin Ql (U)NegativeNegativeWest BendTouchmedia Nitrite Ql (U)NegativeNegUNC HealthTouchmedia pH (U)6 [pH]Invalid Interpretation Code4.5-7.8Bformerly [facility] psychiatric hospitalVascular Magnetics [facility] Protein Ql (U)NegativeNegativeWest BendITADSecurity [facility] Urobilinogen Test strip mass conc (U)normalnormal [employer] [facility] 22554955IyivdljpnTouchmedia 232.0 mg/dLInvalid Interpretation CodeWest BendITADSecurity [facility] Thyroidon 36-64-0979H2 mass conc5.77 ug/dLInvalid Interpretation Code5.00-12.00BlanchTouchmedia Thyrotropin Qn2.60 m[IU]/LInvalid Interpretation Code 0.50-4.00[facility] Urinalysison 71-76-8782Krlupuo Nom (U)clearInvalid Interpretation CodeClearBKettering Health [facility] MAD Incub[facility] Color Nom (U)yellowInvalid Interpretation Codeyellow [facility] Creatinine mass conc (U)66.20 mg/dLInvalid Interpretation CodeNot Estab. mg/dLBKettering Health Washington [facility] MAD Inc[facility] Ketones Ql (U)2+Invalid Interpretation CodeNegative [facility] Leukocyte esterase Test strip Ql (U)NegativeNegative [facility] Specific gravity Relative Density (U)1.010Invalid Interpretation Code1.003-1.029[facility] Laboratory - Chemistry and Chemistry - challengeon 76-26-9265Gqrepsmo [Mass/Vol]ug/dLInvalid Interpretation Code3.1-22.4BKettering Health [facility] MAD [facility] Otheron 26-65-5014Vwwotbka mass concug/dL3.1-22.4 [employer] [facility] Laboratory - Chemistry and Chemistry - challengeon 08-16-0956Jkrjqubwb Ql (U)NegativeInvalid Interpretation CodeNegativeTrinity Health System MAD [facility] Urobilinogen (U) [Mass/Vol]normalInvalid Interpretation CodenormalTrinity Health System MAD [facility] Laboratory - Hematology and Cell countson 10-29-2015 Hemoglobin Ql (U)NegativeInvalid Interpretation CodeNegativeTrinity Health System MAD [facility] Laboratory - Urinalysison 64-26-5536Rhkpxlphx esterase Test strip Ql (U)NegativeInvalid Interpretation CodeNegativeWest BendTouchmedia Nitrite Ql (U)NegativeInvalid Interpretation Code NegativeWest BendTouchmedia Protein Ql (U)NegativeInvalid Interpretation Code NegativeWest BendTouchmedia Metabolic Panelon 53-18-8117Audpe gap molar conc20 mmol/LInvalid Interpretation Plai66-96EuwjywquzTouchmedia Calcium mass conc9.70 mg/dLInvalid Interpretation Code 8.5-10.8[facility] clinicIgY [employer] Chloride molar conc96 mmol/LInvalid Interpretation Code 100-112[place] BendTouch[facility] CO2 molar conc27 mmol/LInvalid Interpretation Cgtm96-82 [employer] Creatinine mass conc0.80 mg/dLInvalid Interpretation Code0.5-1.5[facility] clinicIgY [facility] [employer] GFR/1.73 sq M predicted among non-blacks MDRD vol rate/area (S/P/Bld)102 mL/min/{1.73_m2}Invalid Interpretation CodeWest BendTouchmedia Glucose mass gaxa773.0 mg/dLInvalid Interpretation Code 80-117[place] [facility] Hemoglobin A1c/Hemoglobin.total mass fraction (Bld) 12.60 %Invalid Interpretation Code4.3-6.3[facility] clinicIgY [employer] [employer] Potassium molar conc3.6 mmol/LInvalid Interpretation Code3.5-5.3BWeeleo Sodium molar mfou302 mmol/LInvalid Interpretation Code 135-148[employer] Urea nitrogen mass conc11.0 mg/dLInvalid Interpretation Code7-25[place] Urea nitrogen/Creatinine mass ratio14 mg/mgInvalid Interpretation Code6-20[place] Otheron 32-69-3054Sfxupbe mass conc (U)25.9Invalid Interpretation Code0.0-17.0West BendITADSecurity [facility] Bilirubin Ql (U)NegativeNegativeWest BendTouch[facility] Glucose Test strip mass conc (U)4+Invalid Interpretation CodeNegativeWest [place]Touch[facility] Hemoglobin Ql (U)NegativeNegUNC HealthTouchmedia Nitrite Ql (U)NegativeNegUNC HealthTouchmedia pH (U)5 [pH]Invalid Interpretation Code4.5-7.8Bformerly [facility] hospitalVascular Magnetics [facility] Protein Ql (U)NegativeNegativeWest BendTouchmedia Urobilinogen Test strip mass conc (U)normalnormal [employer] [facility] 315BlanchTouchmedia 315.0 mg/dLInvalid Interpretation CodeWest BendITADSecurity [facility] Urinalysison 22-20-7617Isgtdsy/Creatinine DL <= 20 mg/L mass ratio (U)14.7 mg/gInvalid Interpretation Code0.0-30.0West BendITADSecurity [facility] Clarity Nom (U)clearInvalid Interpretation CodeClear MonroeQuaam Color Nom (U)yellowInvalid Interpretation Codeyellow [employer] Creatinine mass conc (U)175.60 mg/dLInvalid Interpretation CodeNot Estab. mg/dLBlanchaVascular Magnetics [facility] Ketones Ql (U)3+Invalid Interpretation CodeNegative [employer] [facility] Leukocyte esterase Test strip Ql (U)NegativeNegative [employer] [facility] Specific gravity Relative Density (U)1.020Invalid Interpretation Code1.003-1.029West BendITADSecurity [facility] Laboratory - Chemistry and Chemistry - challengeon 16-82-1349Servooaza Ql (U)NegativeInvalid Interpretation CodeNegativeWest BendITADSecurity [facility] Urobilinogen (U) [Mass/Vol]normalInvalid Interpretation CodenormalColgate [employer] [facility] Laboratory - Hematology and Cell countson 10-03-2015 Hemoglobin Ql (U)NegativeInvalid Interpretation CodeNegativeWest BendITADSecurity [facility] Laboratory - Urinalysison 94-10-3504Kkfmsappi esterase Test strip Ql (U)NegativeInvalid Interpretation CodeNegativeWest BendITADSecurity [facility] Nitrite Ql (U)NegativeInvalid Interpretation Code NegativeWest BendITADSecurity [facility] Protein Ql (U)NegativeInvalid Interpretation Code NegativeWest BendITADSecurity [facility] Metabolic Panelon 52-44-2101Ajaeh gap molar conc24 mmol/LInvalid Interpretation Ymsl67-95YhtlomsguITADSecurity [facility] Calcium mass conc9.30 mg/dLInvalid Interpretation Code 8.5-10.8Bglenbeigh hospital [employer] [facility] Chloride molar conc93 mmol/LInvalid Interpretation Code 100-112West BendITADSecurity [facility] CO2 molar conc23 mmol/LInvalid Interpretation Gtpv28-98 [facility] Creatinine mass conc0.90 mg/dLInvalid Interpretation Code0.5-1.5Bformerly [facility] hospitalVascular Magnetics [facility] GFR/1.73 sq M predicted among non-blacks MDRD vol rate/area (S/P/Bld)89 mL/min/{1.73_m2}Invalid Interpretation CodeWest BendITADSecurity [facility] Glucose mass sebb760.0 mg/dLInvalid Interpretation Code 80-117[place]Touch[facility] Potassium molar conc4.0 mmol/LInvalid Interpretation Code3.5-5.3Bformerly [facility] hospitalStrongSteam Sodium molar mspr879 mmol/LInvalid Interpretation Code 135-148[place]Touch[facility] Urea nitrogen mass conc13.0 mg/dLInvalid Interpretation Code7-25West BendITADSecurity [facility] Urea nitrogen/Creatinine mass ratio14 mg/mgInvalid Interpretation Code6-20West BendITADSecurity [facility] Otheron 10-02-2938Jcgszyyhm Ql (U)NegativeNegative [employer] [facility] C peptide mass conc5.0Invalid Interpretation Code 1.1-4.4Bformerly [facility] psychiatric hospitalVascular Magnetics [facility] Cortisol mass conc4.0 ug/dLInvalid Interpretation Code 3.1-22.4Bformerly [facility] hospitalVascular Magnetics [facility] Glucose Test strip mass conc (U)4+Invalid Interpretation CodeNegativeWest BendITADSecurity [facility] Hemoglobin Ql (U)NegativeNegativeWest BendTouchmedia Nitrite Ql (U)NegativeNegativeWest BendTouchmedia pH (U)5 [pH]Invalid Interpretation Code4.5-7.8[facility] clinicIgY [employer] Protein Ql (U)NegativeNegativeWest BendTouchmedia Urobilinogen Test strip mass conc (U)normalnormal MonroeQuaam See AboveInvalid Interpretation Code0-0[place] Urinalysison 86-43-6813Xzufiav Nom (U)clearInvalid Interpretation CodeClearBformerly [facility] hospitalStrongSteam Color Nom (U)yellowInvalid Interpretation Codeyellow [place]Qu[place] Ketones Ql (U)1+Invalid Interpretation CodeNegative MonroeQu[facility] Leukocyte esterase Test strip Ql (U)NegativeNegative [facility] Specific gravity Relative Density (U)1.005Invalid Interpretation Code1.003-1.029[place] Hematologyon 95-82-3078Fdazdpjlp #/vol (Bld)0.10 10*3/uLInvalid Interpretation Code0.0-0.1[facility] clinicIgY [employer] Basophils/100 WBC (Bld)0.70 %Invalid Interpretation Code0.0-1.0[employer] Eosinophils #/vol (Bld)0.30 10*3/uLInvalid Interpretation Code0.0-0.5[facility] hospital [facility] clinicIgY [employer] Eosinophils/100 WBC (Bld)3.10 %Invalid Interpretation Code0.0-7.0[employer] ESR Velocity (Bld)31 mm/hInvalid Interpretation Code 0-15Indicee Hematocrit Volume Fraction (Bld)39.50 %Invalid Interpretation Code37.8-51.0Ind[employer]e Hemoglobin mass conc (Bld)13.10 g/dLInvalid Interpretation Code12.6-17.0[facility] MAD [facility] Lymphocytes #/vol (Bld)2.10 10*3/uLInvalid Interpretation Code0.9-3.1Bglenbeigh hospital [employer] [facility] Lymphocytes/100 WBC (Bld)21.80 %Invalid Interpretation Code15.0-46.0West BendITADSecurity [facility] MCH Entitic mass (RBC)31.50 pgInvalid Interpretation Code25.7-33.8Bgl[facility]beigh hospital [employer] [facility] MCV Entitic volume (RBC)94.60 fLInvalid Interpretation Code82.0-98.4Bglenbeigh hospital [employer] [facility] Monocytes #/vol (Bld)0.70 10*3/uLInvalid Interpretation Code0.3-1.0West BendITADSecurity [facility] Monocytes/100 WBC (Bld)7.20 %Invalid Interpretation Code4.0-12.0[facility] BendITADSecurity [facility] Neutrophils #/vol (Bld)6.20 10*3/uLInvalid Interpretation Code1.8-7.9Bgl[facility]beigh hospital [employer] [facility] Neutrophils/100 WBC (Bld)67.20 %Invalid Interpretation Code43.0-76.0West BendITADSecurity [facility] Platelets #/vol (Bld)228.0 10*3/uLInvalid Interpretation Yqrw609-229UpwiixhkcITADSecurity [facility] RBC #/vol (Bld)4.180 10*6/uLInvalid Interpretation Code 4.34-5.61West BendITADSecurity [facility] WBC #/vol (Bld)9.40 10*3/uLInvalid Interpretation Code 3.9-10.3Bformerly [facility] hospitalStrongSteam Metabolic Panelon 00-49-3406Pzpydyi mass concg/dLCLASS 0[place]Touch[facility] Otheron 55-19-2596Ecjxykbhmcp distribution width Ratio (RBC)12.20 %Invalid Interpretation Code11.5-15.5Bformerly [facility] hospitalStrongSteam Immune complex IgE Hy15Wmqwzrj Interpretation Code0-100 [employer] [facility] MCHC mass conc (RBC)33.30 g/dLInvalid Interpretation Code32.0-36.0[place]Touch[facility] Platelet mean volume Entitic volume (Bld)8.50 fLInvalid Interpretation Code7.4-10.4Bformerly [facility] hospitalVascular Magnetics [facility] <0.10Invalid Interpretation CodeCLASS 0West BendITADSecurity [facility] COMMENTInvalid Interpretation CodeWest BendITADSecurity [facility] Cardiacon 06-90-3652Pznzpzanucq in HDL mass conc60.0 mg/dLInvalid Interpretation Yfkk19-699JwgkdnbduITADSecurity [facility] Cholesterol in LDL mass conc58.0 mg/dLInvalid Interpretation Code0-130West BendITADSecurity [facility] Cholesterol mass xrgv748.0 mg/dLInvalid Interpretation Code0-200[place]Touch[facility] Triglyceride mass uexy436.0 mg/dLInvalid Interpretation Zikm96-322EtnorrsmhTouchmedia Metabolic Panelon 01-12-7208FWC enzyme act/vol64.0 U/L Invalid Interpretation Code0-50[place] Anion gap molar conc18 mmol/LInvalid Interpretation Xjgj47-04AjoxsovggTouchmedia AST enzyme act/vol39.0 U/LInvalid Interpretation Code 0-40[place] Calcium mass conc9.70 mg/dLInvalid Interpretation Code 8.5-10.8Bformerly [facility] hospitalStrongSteam Chloride molar conc92 mmol/LInvalid Interpretation Code 100-112[place] CO2 molar conc26 mmol/LInvalid Interpretation Zdvr48-44 [employer] Creatinine mass conc1.70 mg/dLInvalid Interpretation Code0.5-1.5Bformerly [facility] hospitalStrongSteam GFR/1.73 sq M predicted among non-blacks MDRD vol rate/area (S/P/Bld)43 mL/min/{1.73_m2}Invalid Interpretation CodeWest BendTouchmedia Glucose mass uyvd102.0 mg/dLInvalid Interpretation Code 80-117[place] Hemoglobin A1c/Hemoglobin.total mass fraction (Bld)8.90 %Invalid Interpretation Code4.3-6.3Bformerly [facility] hospitalStrongSteam Potassium molar conc4.3 mmol/LInvalid Interpretation Code3.5-5.3Bformerly [facility] hospitalStrongSteam Sodium molar dotf989 mmol/LInvalid Interpretation Code 135-148[employer] Urea nitrogen mass conc24.0 mg/dLInvalid Interpretation Code7-25[facility] Urea nitrogen/Creatinine mass ratio14 mg/mgInvalid Interpretation Code6-20[employer] Otheron 22-25-7893Tijopzq mass conc (U)< 12.0Invalid Interpretation Code< 4.0-17.0[facility] Cholesterol in VLDL mass conc32.0 mg/dLInvalid Interpretation Code0-39[place] Cholesterol.total/Cholesterol in HDL mass ratio3 {ratio}Invalid Interpretation CodeCronote [id number]a 209.0 mg/dLInvalid Interpretation CodeWest BendTouchmedia 64.0 U/L0-50[place] Urinalysison 79-09-0806Caythkaclu mass conc (U)186.0 mg/dLInvalid Interpretation CodeNot Estab. mg/dLBlanmercy medical center merced [facility] [employer] Vital Signs Date TimeVital SignValuePerforming OgbtpuzuzRhslxtzi73-41-2426 14:02-0400Body rhsuct047.3 Diana Yarbrough MD Work Phone: [phone] [place], [place] [address]Xsrwqpbdzz07-01-1893 14:02-0400Body mass index (BMI) [Ratio]34.73 kg/o2LrzrpKimmie Yarbrough MD Work Phone: [phone] MedicineOwzcenodoc74-01-8926 14:02-0400Body udnduv271.95 kgKimmie Yarbrough MD Work Phone: [phone] [place], [place] [address]Khuwhheccb06-25-1661 14:02-0400Heart rate95 /min Kimmie Yarbrough MD Work Phone: [phone] [place], [place] [address]Ljzthiuqii98-05-2919 14:02-0400Respiratory rate18 /minKimmie Yarbrough MD Work Phone: [phone] [place], [place] [address]Lvfrnwcjfk31-18-8620 14:02-6308KdX6% (BldA) [Mass fraction]98 %Kimmie Yarbrough MD Work Phone: [phone] MedicineJjohzknbhz20-99-1401 17:48-0400Body .4 kgWenddanielle Venuucannon memorial hospitalSportlobsterst. john's episcopal hospital south shoreITADSecurity [facility] [id number] 17:48-0400Diastolic blood ueerhygp21 mm[Hg] Cinthia VenuuTyler Memorial HospitalITADSecurity [facility] [id number] 17:48-0400Heart rate76 /minWend PachecoEncompass Health Rehabilitation [facility] [employer] [facility] [id number] 17:48-0400Systolic blood nsmnbymg621 mm[Hg] Cinthia Venuucannon memorial hospitalSportlobsterst. john's episcopal hospital south shoreITADSecurity [facility] [id number] 14:52-0400Body yndspz000.8 cmEricka [employer]Monroe [employer] [facility] [id number] 14:52-0400Body mass index (BMI) [Ratio]36.16 kg/m2Ericka Eastidest. john's episcopal hospital south shoreITADSecurity [facility] Work Phone: [phone] 14:52-0400Body surface area Derived from formula2.38 m2Ericka Eastidest. john[facility] episcopal hospital south shoreITADSecurity [facility] [phone] 14:52-0400Body yhsqow633.31 kgEricka Innov[employer]ellMonroe [employer] [facility] Work Phone: [phone] 14:52-0400Diastolic blood crbgiehw31 mm[Hg] Ericka Eastidest. john[facility] episcopal hospital south shoreITADSecurity [facility] [id number] 14:52-0400Heart rate86 /minEricka Eastidest. john[facility] episcopal hospital south shoreITADSecurity [facility] [id number] 14:52-0400Systolic blood htevzldw849 mm[Hg] Ericka Eastidest. john[facility] episcopal hospital south shoreITADSecurity [facility] [id number] 15:21-0500Body .34 cmEricka Muniz MD Work Phone: [facility]02-04-2025 15:21-0500 Body mass index (BMI) [Ratio]34.5 kg/m2Ericka Muniz MD Work Phone: [phone] [place], [place] 4911202-04-2025 15:21-0500 Body .49 kgEricka Muniz MD Work Phone: [phone]02-04-2025 15:21-0500 Diastolic blood eevfqdnn35 mm[Hg]Ericka Muniz MD Work Phone: [phone]02-04-2025 15:21-0500 Heart gzgi721 /minEricka Muniz MD Work Phone: [phone]02-04-2025 15:21-0500 Respiratory rate20 /minEricka Muniz MD Work Phone: [phone] [place], [place] 4911202-04-2025 15:21-0500 SaO2% (BldA) [Mass fraction]97 %Ericka Muniz MD Work Phone: [phone]02-04-2025 15:21-0500 Systolic blood mm[Hg]Ericka Muniz MD Work Phone: [phone]10-17-2024 17:02-0400 Body xfyyst955.85 kgWend Prescreenst. john's episcopal hospital south shoreTouchmedia 10-17-2024 17:02-0400Diastolic blood vocwafjl18 mm[Hg] Cinthia [employer] [id number] 17:02-0400Heart rate78 /minWend [employer] 10-17-2024 17:02-0400Systolic blood wkiyywhk357 mm[Hg] Citnhia [employer] [id number] 14:06-0400Body szhyjx169.07 cmMontgomery [employer] 09-11-2024 14:06-0400Body mass index (BMI) [Ratio]34.52 kg/m2Montgomery [employer] 09-11-2024 14:06-0400Body surface area Derived from formula2.35 m2Ericka [facility] [facility] 09-11-2024 14:06-0400Body yjgtzb534.68 kgEricka [facility] [facility] 09-11-2024 14:06-0400Diastolic blood mm[Hg] Ericka [facility] 09-11-2024 14:06-0400Heart rate72 /minEricka [facility] 09-11-2024 14:06-0400Systolic blood dadocyxz148 mm[Hg] Ericka [facility] 06-05-2024 15:17-0400Body xzvjye525.34 cmAPRN Mark Upton Work Phone: [facility]06-05-2024 15:17-0400 Body spqagynfari14.6 [degF][employer] SET UP OPERATOR RADIAL Mark Upton Work Phone: [phone]06-05-2024 15:17-0400 Body xbuiqd655.3 kgAPRN Mark Upton Work Phone: [facility]06-05-2024 15:17-0400 Diastolic blood mm[Hg]DRILL [employer] SET UP OPERATOR RADIAL Mark Alexsandra Work Phone: [phone]06-05-2024 15:17-0400 Heart rate97 /minAPRN Mark Alexsandra Work Phone: [facility]06-05-2024 15:17-0400 Respiratory rate18 /minAPRN Mark Alexsandra Work Phone: [facility]06-05-2024 15:17-0400 SaO2% (BldA) [Mass fraction]95 %DRILL [employer] SET UP OPERATOR RADIAL Mark Alexsandra Work Phone: [facility]06-05-2024 15:17-0400 Systolic blood umttskob731 mm[Hg]RADHA Upton Work Phone: [phone] [place], [place] 50[address]105-25-2024 16:32-0400 Body .34 cmAPRDouglas Upton Work Phone: [phone]05-25-2024 16:32-0400 Body oicvgsukcmg87.9 [degF]RADHA Upton Work Phone: [phone] [place], [place] [address]221505-25-2024 16:32-0400 Body kxxrhe663.25 kgAPRDouglas Upton Work Phone: [phone] [place], [place] [address]221505-25-2024 16:32-0400 Diastolic blood ovkkgkvn93 mm[Hg]RADHA Upton Work Phone: [phone] [place], [place] [address]05-25-2024 16:32-0400 Heart rate98 /minRADHA Upton Work Phone: [phone] [place], [place] [address]22[address]05-25-2024 16:32-0400 Respiratory rate17 /minAPRDouglas Upton Work Phone: [phone] [place], [place] [address]05-25-2024 16:32-0400 SaO2% (BldA) [Mass fraction]95 %RADHA Upton Work Phone: [phone] [place], [place] [address]22[address]05-25-2024 16:32-0400 Systolic blood osrvgqas010 mm[Hg]RADHA Upton Work Phone: [phone])[facility] [place], [place] [address]05-06-2024 14:24-0400 Body zipcij245.07 cmEricka NetasqWest BendTouchmedia 05-06-2024 14:24-0400Diastolic blood pplwrren11 mm[Hg] Ericka [facility]idest[facility] shoreTouchmedia 05-06-2024 14:24-0400Systolic blood gvfhsuav447 mm[Hg] Ericka [facility]idest[facility] shoreTouchmedia 05-06-2024 13:14-0400Body uctsof510.77 kgEricka [employer] [facility] [id number] 13:14-0400Diastolic blood ifmmiiib46 mm[Hg] Ericka Eastidest. [facility] south shoreITADSecurity [facility] [id number] 13:14-0400Heart rate76 /minEricka Eastidest. john[facility] shoreITADSecurity [facility] [id number] 13:14-0400Systolic blood hkduvhav570 mm[Hg] Ericka Eastidest. [facility] shoreITADSecurity [facility] Work Phone: [phone] 16:12-0400Body upifix465.34 cmEricka InnovacellMonroeMonsoon [employer] [facility] [phone] 16:12-0400Body mass index (BMI) [Ratio]33.19 kg/m2Ericka [employer] [facility] [id number] 16:12-0400Body surface area Derived from formula2.33 m2Ericka [employer] [facility] [id number] 16:12-0400Body feelup953.96 kgEricka InnovacellMonroeMonsoon [employer] [facility] [id number] 16:12-0400Diastolic blood xfmrohzt91 mm[Hg] Ericka Eastidest. [facility] south shoreITADSecurity [facility] [id number] 16:12-0400Heart rate90 /minEricka [employer] [facility] Work Phone: [phone] 16:12-0400Systolic blood wtdxnost960 mm[Hg] Ericka Responsa [id number] 16:23-0500Body .34 Lisandra The InfluenceWest BendITADSecurity [facility] [id number] 16:23-0500Body mass index (BMI) [Ratio]33.33 kg/p1Kkugu The InfluenceWest BendTouchmedia [id number] 16:23-0500Body surface area Derived from formula2.33 h5Drkkg Likehackst. john's episcopal hospital south shoreTouchmedia [id number] 16:23-0500Body .41 kgEdilberto Likehackst. john's episcopal hospital south shoreTouchmedia [id number] 16:23-0500Body weight0.1 {percentile}Edilberto Likehackst. john's episcopal hospital south shoreTouchmedia [id number] 16:23-0500Diastolic blood mm[Hg] Edilberto Likehackst. john's episcopal hospital south shoreTouchmedia [id number] 16:23-0500Heart hdcl651 /minEdilberto Jaraeder [employer] [id number] 16:23-0500Systolic blood wlapdmte747 mm[Hg] Edilberto Likehackst. john's episcopal hospital south shoreTouchmedia 11-17-2022 14:45-0500Body yyikhz993.[address] [facility]11-17-2022 14:45-0500Body mass index (BMI) [Ratio]24.4 kg/b6UddgpqjgySt. Rita'S Hospital11-17-2022 14:45-0500Body .[address] [facility]11-17-2022 14:39-0500Body dhvkthppowu40.7 [degF][facility]11-17-2022 14:39-0500Diastolic blood shgebmva89 mm[Hg][facility]11-17-2022 14:39-0500Heart rate90 /[facility]11-17-2022 14:39-0500Respiratory rate20 /[facility]11-17-2022 14:39-0500Systolic blood iaonhcid317 mm[Hg][facility]10-26-2022 14:50-0400Body .88 cmSt[address] [facility]10-26-2022 14:50-0400Body mass index (BMI) [Ratio]24.4 kg/r7QgnxhvfoiSt. Rita'S Hospital10-26-2022 14:50-0400Body npzsfe72.64 kgSt. [facility]'S Hospital10-26-2022 14:36-0400Body ewtepjrweub33.9 [degF][facility]10-26-2022 14:36-0400Diastolic blood xeqyadmc92 mm[Hg][facility] 05-05-2022 14:36-0400Heart blpl757 /[facility] 05-05-2022 14:36-0400Respiratory rate18 /[facility] 05-05-2022 14:36-0400Systolic blood nobeszqj679 mm[Hg][facility]10-05-2022 14:46-0400Body uvnxqh884.88 cmSt[address] [facility] Hospital10-05-2022 14:46-0400Body mass index (BMI) [Ratio]24.4 kg/f2LvewgsqcsSt. Rita'S Hospital10-05-2022 14:46-0400Body sagdcc62.64 kgSt. [facility]'S Hospital10-05-2022 14:14-0400Body ekketrvqwbo63.6 [degF][facility]10-05-2022 14:14-0400Diastolic blood tjyqjewb17 mm[Hg] [facility]10-05-2022 14:14-0400Heart dtfs004 /min [facility]10-05-2022 14:14-0400Respiratory rate18 /min [facility]10-05-2022 14:14-0400Systolic blood laxytzdd835 mm[Hg][facility]09-22-2022 18:08-0400Body tchnoh212.88 cmSt[address] [facility] Hospital09-22-2022 18:08-0400Body kozkercwaeb36.5 [degF][facility]09-22-2022 18:08-0400Body qudyfo881.[address] [facility]09-22-2022 18:08-0400Diastolic blood umzfiikc83 mm[Hg][facility]09-22-2022 18:08-0400Heart sqqb307 /min [facility]09-22-2022 18:08-0400Respiratory rate20 /min [facility]09-22-2022 18:08-3186HiO0% (BldA) [Mass fraction]97 %[facility]09-22-2022 18:08-0400Systolic blood ohjhouce472 mm[Hg][facility]08-10-2022 15:25-0400 Body rvytzc890.34 cmJeakron children's hospitaly [facility] CenterSportlobsterst. john's episcopal hospital south shoreITADSecurity [facility] Work Phone: [phone] 15:25-0400Body mass index (BMI) [Ratio]33.75 kg/y2Djysui AthletePathscotland memorial hospitalSportlobsterst. john's episcopal hospital south shoreITADSecurity [facility] Work Phone: [phone] 15:25-0400Body surface area Derived from formula2.35 x2Eilioz Marchscotland memorial hospitalSportlobsterst. john's episcopal hospital south shoreITADSecurity [facility] Work Phone: [phone] 15:25-0400Body surface area Derived from formula2.34 w6Jxhkog AthletePathscotland memorial hospitalSportlobsterst. john's episcopal hospital south shoreITADSecurity [facility] Work Phone: [phone] 15:25-0400Body wovwsn838.77 kgJeakron children's hospitaly AthletePathscotland memorial hospitalSportlobsterst. john's episcopal hospital south shoreITADSecurity [facility] Work Phone: [phone] 15:25-0400Diastolic blood mm[Hg] Franky AthletePathscotland memorial hospitalSportlobsterst. john's episcopal hospital south shoreITADSecurity [facility] Work Phone: [phone] 15:25-0400Heart rate84 /minJeakron children's hospitaly [facility] MonroeMon[employer] [facility] Work Phone: [phone] 15:25-0400Systolic blood qyhwxyvl978 mm[Hg] Franky Inductlyst. john's episcopal hospital south shoreITADSecurity [facility] Work Phone: [phone] 14:30-0400Body vbniuo979.34 cmMontgomery [employer] Work Phone: [phone] 14:30-0400Body mass index (BMI) [Ratio]33.75 kg/m2Montgomery Responsa Work Phone: [phone] 14:30-0400Body surface area Derived from formula2.35 m2Ericka Eastidest. john's episcopal hospital south shoreITADSecurity [facility] Work Phone: [phone] 14:30-0400Body surface area Derived from formula2.34 m2Ericka Eastidest. john's episcopal hospital south shoreITADSecurity [facility] Work Phone: [phone] 14:30-0400Body mdsetf486.77 kgEricka Muniz [employer] [facility] Work Phone: [phone] 14:30-0400Diastolic blood brgogdmn58 mm[Hg] Ericka NetasqWest BendITADSecurity [facility] Work Phone: [phone] 14:30-0400Heart rate88 /minEricka NetasqWest BendITADSecurity [facility] Work Phone: [phone] 14:30-0400Systolic blood mm[Hg] Ericka Eastidest. john's episcopal hospital south shoreITADSecurity [facility] Work Phone: [phone] 13:42-0400Body ihwnyc224.34 cmLeroy The InfluenceWest BendITADSecurity [facility] Work Phone: [phone] 13:42-0400Body mass index (BMI) [Ratio]33.47 kg/d4Pnibu The InfluenceWest BendITADSecurity [facility] Work Phone: [phone] 13:42-0400Body surface area Derived from formula2.34 e0Ixmtm Likehackst. john's episcopal hospital south shoreITADSecurity [facility] Work Phone: [phone] 13:42-0400Body ypxpaj483.86 kgEdilberto Likehackst. john's episcopal hospital south shoreITADSecurity [facility] Work Phone: [phone] 13:42-0400Diastolic blood uvvbthhn26 mm[Hg] Edilberto Vend [facility] Work Phone: [phone] 13:42-0400Heart rate84 /minEdilberto [employer] CorporationncMonsoon [employer] [facility] Work Phone: [phone] 13:42-0400Systolic blood fyinbbkb706 mm[Hg] Edilberto JaraederBlanchITADSecurity [facility] 04-12-2022 16:47-0400Body .34 cmDwayneakron children's hospitaly [facility] MAD Incubator [facility] 04-12-2022 16:47-0400Body mass index (BMI) [Ratio]34.03 kg/e5Ptpenk [facility] MAD Incubator [facility] 04-12-2022 16:47-0400Body surface area Derived from formula2.35 z9KgullfFisher-[facility]itus Medical [facility] MAD Incubator [facility] 04-12-2022 16:47-0400Body yuakks031.68 kgFisher-Titus Medical Center MAD Incubator [facility] 04-12-2022 16:47-0400Diastolic blood ddoiudyr25 mm[Hg] Franky [facility] MAD Incubator [facility] 04-12-2022 16:47-0400Heart rate88 /minJegarricky [facility] MAD Incubator [facility] 04-12-2022 16:47-0400Systolic blood mm[Hg] Franky [facility] MAD Incubator [facility] 03-10-2022 16:22-0500Body .34 cmDwayneakron children's hospitalmichelle [facility] MAD Incubator [facility] 03-10-2022 16:22-0500Body mass index (BMI) [Ratio]34.17 kg/k9TboycwFisher-[facility]itus Medical Center MAD Incubator [facility] 03-10-2022 16:22-0500Body surface area Derived from formula2.36 p7Wuuvmx [facility] MAD Incubator [facility] 03-10-2022 16:22-0500Body itmhfl475.13 kgDwayneakron children's hospitaleCircle [facility] MAD Incubator [facility] 03-10-2022 16:22-0500Diastolic blood aleqiagb04 mm[Hg] Franky Inductlyst. john's episcopal hospital south shoreITADSecurity [facility] 03-10-2022 16:22-0500Heart rate84 /minFranky Turpin [employer] [facility] 03-10-2022 16:22-0500Systolic blood alamxncd159 mm[Hg] Franky Vidalformerly Western Wake Medical CenterITADSecurity [facility] 19-151320-34835152-65-8154 14:40-0500Body obgdvt565.34 Lisandra Vend [facility] 05-720780-22658851-12-3914 14:40-0500Body mass index (BMI) [Ratio]35.15 kg/h8Xfebu [employer] 49-882026-92990041-51-0081 14:40-0500Body surface area Derived from formula2.39 k4Usfpv [employer] 78-829195-04278947-89-9376 14:40-0500Body atbcdk503.31 kgEdilberto [employer] 12-529156-11844671-79-0537 14:40-0500Diastolic blood mm[Hg] Edilberto [employer] 11-031951-60941164-52-1160 14:40-0500Heart rate84 /Damon Kopjra [facility] 29-956695-35473202-61-1063 14:40-0500Systolic blood bbahivvo481 mm[Hg] Edilberto Vend [facility] 09-09-2021 14:33-0400Body wrasuy428.61 Lisandra [employer] 21-939381-16728177-22-2322 14:33-0400Body mass index (BMI) [Ratio]33.49 kg/l8Gubxz [employer] 79-157860-40104891-42-2285 14:33-0400Body surface area Derived from formula2.36 i4Tujox Vend [facility] 09-09-2021 14:33-0400Body .45 kgEdilberto Vend [facility] 12-500210-21900610-08-7337 14:33-0400Diastolic blood lanwkmza47 mm[Hg] Edilberto Likehackst. john's episcopal hospital south shoreITADSecurity [facility] 09-09-2021 14:33-0400Heart rate88 /minEdilberto ZamoraZeroTurnaround [facility] 09-09-2021 14:33-0400Systolic blood guwjitrm382 mm[Hg] Edilberto Vend [facility] 98-376995-78703835-71-8084 13:35-0400Body .61 cmMontgomery InnovacellMonroeMonsoon Commerce [facility] 06-15-2021 13:35-0400Body mass index (BMI) [Ratio]33.01 kg/m2Montgomery [employer] [facility] 70-387703-96691748-31-6689 13:35-0400Body surface area Derived from formula2.34 m2Montgomery Garnet [employer] [facility] 72-508137-78035005-92-3218 13:35-0400Body cpaddu930.86 kgMontgomery [employer] [facility] 35-815874-86491290-74-9967 13:35-0400Diastolic blood fccepqat69 mm[Hg] Ericka [employer] [facility] 37-162623-40164036-40-7746 13:35-0400Heart rate83 /minEricka [employer]et [employer] [facility] 49-846981-96376399-58-7111 13:35-0400Systolic blood exasqvwp005 mm[Hg] Ericka [employer] [facility] 03-02-2021 15:15-0500BMI (Body Mass Index)33.56 kg/m2 Edilberto Vend [facility] 03-02-2021 15:15-0500Body .68 kgEdilberto [employer] 11-005711-83503234-13-9109 15:15-0500BP Kwwzrkbfs40 mm[Hg]Edilberto [employer] 21-456005-40424101-33-2271 15:15-0500BP Pwfqqetg079 mm[Hg]Edilberto [employer] Work Phone: [phone] 15:15-0500BSA (Body Surface Area)2.36 m2 Edilberto [employer] Work Phone: [phone] 15:15-8346Brhome213.61 [employer] Work Phone: [phone] 15:15-0500Pulse (Heart Rate)104 /minCopper Queen Community Hospitalgavi [employer] Work Phone: [phone] 17:01-0400BMI (Body Mass Index)33.46 kg/m2 Edilberto [employer] Work Phone: [phone] 17:01-0400Body rvfyjp086.37 Lincoln [employer] Work Phone: [phone] 17:01-0400BP Drhbpjokj07 mm[Hg]EdilbertoW[employer] Work Phone: [phone] 17:01-0400BP Sruijsgm966 mm[Hg]Edilberto [employer] Work Phone: [phone] 17:01-0400BSA (Body Surface Area)2.36 m2 EdilbertoW[employer] Work Phone: [phone] 17:01-7683Vcogsi392.61 [employer] Work Phone: [phone] 17:01-0400Pulse (Heart Rate)78 /minHello [employer] Work Phone: [phone] 17:34-0400BMI (Body Mass Index)33.83 kg/m2 Ericka Responsa Work Phone: [phone] 17:34-0400Body Mrxxbzrbxsg28.8 [degF]Ericka Eastidest. john's episcopal hospital south shoreTouchmedia Work Phone: [phone] 17:34-0400Body ygmesl803.59 kgEricka [employer] Work Phone: [phone] 17:34-0400BP Zeagxctum46 mm[Hg]Ericka [employer] Work Phone: [phone] 17:34-0400BP Favltnfc325 mm[Hg]Ericka InnovacellMonroeQuaam Work Phone: [phone] 17:34-0400BSA (Body Surface Area)2.37 m2Ericka Responsa Work Phone: [phone] 17:34-4327Bmojnf982.61 cmEricka Responsa Work Phone: [phone] 17:34-0400Pulse (Heart Rate)88 /minEricka [employer] 40-06 14:30-0400Body Kgxhenbjdcz39.6 [degF][facility], HF33-43-4594 14:30-0400BP Fsncazczp37 mm[Hg][facility], MA57-43-0541 14:30-0400BP Gonpqvsu570 mm[Hg][facility], EP33-92-4640 14:30-0400Pulse (Heart Rate)80 /minSSamaritan [facility], LM95-26-6332 14:30-0400Pulse Xqqmkkzi80 %[facility], RZ61-73-1975 14:30-0400Respiratory Rate18 /minSSamaritan North Health Center, LN94-53-0959 08:19-0400BMI (Body Mass Index)33.63 kg/y6FuvdzrAdventist Health [facility], DF89-12-2277 08:19-0400Body ygvjzj838.49 kgAdventist Health [facility], OT00-16-5614 08:19-4710Pmgyrg254.9 [facility], BP41-98-6873 17:01-0400BMI (Body Mass Index)34.24 kg/m2Ericka Responsa Work Phone: [phone] 17:01-0400Body Pakdxjdbuqx91.5 [degF]Ericka Eastidest. john's episcopal hospital south shoreTouchmedia Work Phone: [phone] 17:01-0400Body dgqyzn380.95 kgEricka [employer] Work Phone: [phone] 17:01-0400BP Tqjnxgsml21 mm[Hg]Ericka InnovacellMonroeQuaam Work Phone: [phone] 17:01-0400BP Abptunnx724 mm[Hg]Ericka InnovacellMonroe [employer] [facility] Work Phone: [phone] 17:01-0400BSA (Body Surface Area)2.39 m2Ericka [employer] [facility] Work Phone: [phone] 17:01-9587Kmqzjd399.61 cmEricka Responsa Work Phone: [phone] 17:01-0400Pulse (Heart Rate)100 /minEricka [employer] [facility] Work Phone: [phone] 15:09-0500BMI (Body Mass Index)33.83 kg/m2 Edilberto [employer] Work Phone: [phone] 15:09-0500Body .59 kgGuccigavi [employer] Work Phone: [phone] 15:09-0500BP Pzgpkjcwx96 mm[Hg]Edilberto [employer] Work Phone: [phone] 15:09-0500BP Xaxxhutc573 mm[Hg]Edilberto [employer] 21-301343-23634854-05-7095 15:09-0500BSA (Body Surface Area)2.37 m2 Edilberto [employer] 45-250355-66875891-51-6908 15:09-9232Bpmeoi394.61 cmLeroy Sera [employer] 23-307445-22520778-31-3186 15:09-0500Pulse (Heart Rate)80 /minEdilberto [employer] 34-281338-55550484-34-3542 18:11-0500BMI (Body Mass Index)33.51 kg/m2 Ericka Respons[employer] 70-586385-73851642-32-8295 18:11-0500Body .13 kgEricka [employer] 01-261575-37975716-17-0223 18:11-0500BP Hhvtzkgug73 mm[Hg]Ericka [employer] 17-766865-21871241-41-9290 18:11-0500BP Njljtwqn374 mm[Hg]Ericka [employer] 93-121489-53226574-77-6346 18:11-0500BSA (Body Surface Area)2.37 m2Ericka Responsa 01-170772-14251925-85-6206 18:115287Sskkmo349.12 cmEricka Responsa 56-726228-50326785-17-8099 18:11-0500Pulse (Heart Rate)80 /minEricka [employer] 10-08-2019 17:27-0400BMI (Body Mass Index)33.96 kg/m2 Edilberto [employer] 10-08-2019 17:27-0400Body vrnutl704.95 kgEdilberto [employer] 74-314155-07193973-86-2541 17:0BP Kklgynybz58 mm[Hg]Edilberto [employer] 49-113517-62006752-56-0241 17:0BP Evwufggx702 mm[Hg]Edilberto [employer] 29-682827-97196783-96-3599 17:BSA (Body Surface Area)2.39 m2 Edilberto [employer] 35-204376-69492424-63-9796 17:9557Ywccct776.37 cmLjimenezy [employer] 10-08-2019 17:Pulse (Heart Rate)102 /minEdilberto [employer] 32-395633-09795026-05-8431 13:BMI (Body Mass Index)34.3 kg/m2 Ericka Responsa Work Phone: [phone] 13:Body .08 kgEricka [employer] 55-054533-24674618-51-4202 13:0400BP Swzofcbbg91 mm[Hg]Ericka [employer] 42-603696-64545087-97-5156 13:BP Rmwnyfjc695 mm[Hg]Ericka [employer] 01-561015-05613354-87-1407 13:BSA (Body Surface Area)2.4 m2Ericka Responsa 64-620111-78246174-25-5877 13:6759Dvuhpb581.37 cmEricka Responsa 19-660857-77561334-61-4891 13:040Pulse (Heart Rate)88 /minEricka [employer] 02-913963-56929488-38-3191 13:490BMI (Body Mass Index)34.5 kg/m2 Edilberto [employer] 34-155264-57603863-73-8426 13:49-0400Body idocmq672.76 kgEricka Muniz [employer] 94-650455-35479880-38-0700 13:49-0400BP Suyotjzlk53 mm[Hg]Edilberto [employer] 28-714115-92094525-82-1777 13:49-0400BP Bznavfur843 mm[Hg]Edilberto [employer] Work Phone: [phone] 13:49-0400BSA (Body Surface Area)2.41 m2 Edilberto [employer] 15-977311-09058010-92-5457 13:49-4916Xrqnoa673.37 [employer] 58-709687-35628496-61-6456 13:49-0400Pulse (Heart Rate)90 /minEdilberto [employer] 53-683353-79542491-50-1865 13:49-5002Sihhaq290.76 [place] [employer] 11-963052-06916133-25-6805 13:45-0400BMI (Body Mass Index)34.38 kg/m2 Edilberto [employer] 58-219680-82366301-16-9440 13:45-0400Body kpnzle736.4 kgEricka [employer] 94-649462-74642427-30-6904 13:45-0400BP Ecbtirbxp46 mm[Hg]Edilberto [employer] 62-332806-93528729-11-7133 13:45-0400BP Roqdevwi150 mm[Hg]Edilberto [employer] 73-518764-91036507-36-7692 13:45-0400BSA (Body Surface Area)2.39 m2 EdilbertoWine in Black 53-891693-55488397-50-3586 13:45-5620Lsrjbs475.61 [employer] 17-792940-28128843-79-7268 13:45-0400Pulse (Heart Rate)90 /minEdilberto [employer] 53-262069-15204145-32-9482 13:45-2561Xqwjhn562.4 [place] [employer] 26-826119-01177400-73-9151 13:14-0500BMI (Body Mass Index)33.74 kg/m2 Edilberto [employer] 52-345975-32734173-86-6035 13:14-0500Body laswuf228.27 Gerardo [employer] 07-615489-56122132-88-8458 13:14-0500BP Wmbjdktzp06 mm[Hg]Edilberto [employer] 04-353963-45675130-19-1467 13:14-0500BP Pupoblzh733 mm[Hg]Edilberto [employer] 65-770198-88688607-06-3814 13:14-0500BSA (Body Surface Area)2.37 m2 Edilberto [employer] 35-621210-49859892-42-4672 13:14-8603Izfrgz615.61 cmLeroy [employer] 56-022928-14998595-67-3754 13:14-0500Pulse (Heart Rate)84 /minEdilberto [employer] 26-436112-01346435-08-9054 13:14-8739Eedijl407.27 [place] [employer] 12-10-2018 13:18-0500Body llules378.04 Gerardo [employer] 12-10-2018 13:18-0500BP Mrqvgeiyn60 mm[Hg][employer] 12-10-2018 13:18-0500BP Brvzmzjb869 mm[Hg][employer] 88-162221-80657730-27-7193 13:180500Pulse (Heart Rate)70 /minEdilberto [employer] Work Phone: [phone] 13:18-9143Dhpsrx049.04 [place] [employer] Work Phone: [phone] 14:25-0400BMI (Body Mass Index)32.28 kg/m2 Edilberto [employer] Work Phone: [phone] 14:25-0400Body jeyznn416.96 Gerardo [employer] Work Phone: [phone] 14:25-0400BP Mpyibfogm44 mm[Hg]Edilberto [employer] Work Phone: [phone] 14:25-0400BP Evsitilj306 mm[Hg]Edilberto [employer] Work Phone: [phone] 14:25-0400BSA (Body Surface Area)2.34 m2 Edilberto [employer] Work Phone: [phone] 14:258276Nlgfik694.88 cmLeroy [employer] Work Phone: [phone] 14:250400Pulse (Heart Rate)78 /minEdilberto [employer] Work Phone: [phone] 14:25-3444Xcmrwe759.96 [place] [employer] Work Phone: [phone] 13:34-0400BMI (Body Mass Index)32.55 kg/m2 Edilberto [employer] Work Phone: [phone] 13:34-0400Body etfaul381.86 Gerardo [employer] 52-622594-66438834-86-6516 13:34-0400BP Wvqjydizp249 mm[Hg]Edilberto [employer] Work Phone: [phone] 13:34-0400BP Kdemolgf651 mm[Hg]Edilberto [employer] Work Phone: [phone] 13:34-0400BSA (Body Surface Area)2.35 m2 Edilberto [employer] Work Phone: [phone] 13:34-4611Eqjjbk047.88 Lisandra [employer] Work Phone: [phone] 13:34-0400Pulse (Heart Rate)104 /minEdliberto [employer] Work Phone: [phone] 13:34-3771Daohnk069.86 [place] [employer] Work Phone: [phone] 13:50-0400BMI (Body Mass Index)33.36 kg/m2 Edilberto [employer] Work Phone: [phone] 13:50-0400Body wojcty743.59 kgEricka Muniz [employer] Work Phone: [phone] 13:50-0400BP Xjxxfsihn01 mm[Hg]Edilberto [employer] Work Phone: [phone] 13:50-0400BP Nzzbocti431 mm[Hg]Edilberto [employer] Work Phone: [phone] 13:50-0400BSA (Body Surface Area)2.38 m2 Edilberto [employer] Work Phone: [phone] 13:50-1635Cqqohd239.88 Lisandra [employer] Work Phone: [phone] 13:50-0400Pulse (Heart Rate)76 /minHello [employer] Work Phone: [phone] 13:50-1216Adkdca097.59 Lincoln [employer] Work Phone: [phone] 13:48-0500BMI (Body Mass Index)33.09 kg/m2 Edilberto [employer] Work Phone: [phone] 13:48-0500Body nvgija426.68 Gerardo Muniz [employer] Work Phone: [phone] 13:48-0500BP Ckviaxreo93 mm[Hg]Edilberto [employer] Work Phone: [phone] 13:48-0500BP Vngkkvan947 mm[Hg]Edilberto [employer] Work Phone: [phone] 13:48-0500BSA (Body Surface Area)2.37 m2 EdilbertoW[employer] Work Phone: [phone] 13:48-5654Wgzgol746.88 cmLeroy [employer] Work Phone: [phone] 13:48-0500Pulse (Heart Rate)80 /minEdilberto [employer] Work Phone: [phone] 13:48-9738Qsmumy967.68 [place] [employer] Work Phone: [phone] 13:30-0500BMI (Body Mass Index)33.63 kg/m2 Edilberto [employer] Work Phone: [phone] 13:30-0500Body jcdiuv639.49 Gerardo [employer] Work Phone: [phone] 13:30-0500BP Gmhijvknd84 mm[Hg]EdilbertoW[employer] Work Phone: [phone] 13:30-0500BP Gqkpdgfo532 mm[Hg]EdilbertoW[employer] Work Phone: [phone] 13:30-0500BSA (Body Surface Area)2.39 m2 Edilberto [employer] 32-667210-79353509-86-1047 13:30-3237Jmxudt033.88 Lisandra [employer] Work Phone: [phone] 13:30-0500Pulse (Heart Rate)84 /minEdilberto [employer] 96-642704-39208065-44-6860 13:30-2008Shfawf393.49 Lincoln [employer] 12-18-2017 17:18-0500BMI (Body Mass Index)33.63 kg/m2 Edilberto [employer] 17-725258-56657110-83-9255 17:18-0500Body .49 kgEricka [employer] 15-525613-24595036-53-0106 17:18-0500BP Rwimjkxav15 mm[Hg]Edilberto [employer] 12-18-2017 17:18-0500BP Pdynlyfv659 mm[Hg]Edilberto [employer] 40-630039-03117905-58-7896 17:18-0500BSA (Body Surface Area)2.39 m2 [employer]ilbertoW[employer] 12-18-2017 17:188999Kfwhhk714.88 Lisandra [employer] 12-18-2017 17:18-0500Pulse (Heart Rate)80 /minEdilberto [employer] 12-18-2017 17:18-7816Nzepik682.49 [place] [employer] 47-413479-26367596-20-3924 13:30-0400Body bauxjh225.6 kgEricka [employer] 02-928067-99866925-32-0945 13:30-0400BP Mnwtyatbm40 mm[Hg]Edilberto [employer] Work Phone: [phone] 13:30-0BP Ghopszeb064 mm[Hg]Edilberto [employer] Work Phone: [phone] 13:30-0Pulse (Heart Rate)70 /minEdilberto [employer] Work Phone: [phone] 13:309601Gastrt617.6 Lincoln [employer] Work Phone: [phone] 12:25BMI (Body Mass Index)32.01 kg/m2 Edilberto [employer] Work Phone: [phone] 12:25Body czerel008.05 Gerardo [employer] Work Phone: [phone] 12:250BP Mmkcfvkpc59 mm[Hg]Edilberto [employer] Work Phone: [phone] 12:25BP Nkabaifu327 mm[Hg]Edilberto [employer] Work Phone: [phone] 12:BSA (Body Surface Area)2.33 m2 Edilberto [employer] Work Phone: [phone] 12:6591Xdsrqm927.88 cmLeroy Zamora [employer] Work Phone: [phone] 12:25Pulse (Heart Rate)84 /minEdilberto [employer] Work Phone: [phone] 12:1386Vwpeaj100.05 [place] [employer] Work Phone: [phone] 13:42-0400BMI (Body Mass Index)32.01 kg/m2 [employer] Work Phone: [phone] 13:42-0400Body .05 Gerardo [employer] Work Phone: [phone] 13:42-0400BP Zreucklqx20 mm[Hg][facility]il[facility] Work Phone: [phone] 13:42-0400BP Hwcngwem936 mm[Hg][facility]il[facility]to [facility] Work Phone: [phone] 13:420400BSA (Body Surface Area)2.33 m2 [facility]il[facility]to [facility] Work Phone: [phone] 13:428911Bkhkst983.88 NeilDogeomichelle [employer] Work Phone: [phone] 13:42-0400Pulse (Heart Rate)80 /minEdilberto [facility] Work Phone: [phone] 13:42-1149Xluare549.05 [facility] [employer] Work Phone: [phone] 13:210400BMI (Body Mass Index)32.35 kg/m2 [facility] Work Phone: [phone] 13:21-0400Body evccbs246.18 Gerardo Mun[employer] Work Phone: [phone] 13:21-0400BP Cesijczrw09 mm[Hg][facility] Work Phone: [phone] 13:21-0400BP Uoqzjxqq230 mm[Hg][employer] Work Phone: [phone] 13:BSA (Body Surface Area)2.34 m2 [employer] Work Phone: [phone] 13:6658Lvgnnu184.88 [employer] Work Phone: [phone] 13:21-0400Pulse (Heart Rate)84 /minEdilberto [facility] Work Phone: [phone] 13:21-1112Zaqxdf526.18 [facility] [employer] Work Phone: [phone] 11:37-0400BMI (Body Mass Index)32.75 kg/m2 [facility] Work Phone: [phone] 11:37-0400Body diufeb049.54 Gerardo [employer] 20-161724-49124721-61-6565 11:37-0400BP Qejcvqmzz07 mm[Hg][facility] 11-556619-12739027-65-1047 11:37-0400BP Teznndcm697 mm[Hg][facility]to [facility] Work Phone: [phone] 11:37-0400BSA (Body Surface Area)2.36 m2 [facility] 30-625928-27095480-13-7984 11:37-7365Kwxznb568.88 cmLeroy [employer] Work Phone: [phone] 11:37-0400Pulse (Heart Rate)100 /minEdilberto [facility] Work Phone: [phone] 11:37-7196Ljhnco809.54 [facility] [employer] 20-769592-01085477-05-7822 13:51-0500BMI (Body Mass Index)32.96 kg/m2 [facility] Work Phone: [phone] 13:51-0500Body .22 Gerardo [employer] 53-037450-41803114-11-8075 13:51-0500BP Jrntyuqlc69 mm[Hg][facility] 24-13 13:51-0500BP Wczkbfvr550 mm[Hg][employer] Work Phone: [phone] 13:51-0500BSA (Body Surface Area)2.37 m2 [employer] Work Phone: [phone] 13:51-6311Bnsawj760.88 Lisandra [employer] Work Phone: [phone] 13:51-0500Pulse (Heart Rate)108 /[employer] Work Phone: [phone] 13:51-6147Jvfblr613.22 [facility] [employer] Work Phone: [phone] 11:23-0400BMI (Body Mass Index)32.64 kg/m2 [employer] Work Phone: [phone] 11:23-0400Body .14 Gerardo [employer] Work Phone: [phone] 11:23-0400BP Rbnhwuchs78 mm[Hg][employer] Work Phone: [phone] 11:23-0400BP Ejyulyxu888 mm[Hg][employer] Work Phone: [phone] 11:23-0400BSA (Body Surface Area)2.31 m2 [employer] Work Phone: [phone] 11:23-1573Lblycc704.34 Lisandra [employer] Work Phone: [phone] 11:23-0400Pulse (Heart Rate)80 /minHello [employer] Work Phone: [phone] 11:23-7723Glxkoq786.14 Lincoln [employer] 32-50 13:44-0400BMI (Body Mass Index)32.85 kg/m2 Edilberto [employer] Work Phone: [phone] 13:44-0400Body .82 kgEricka [employer] Work Phone: [phone] 13:44-0400BP Jpbfgoesu48 mm[Hg]Edilberto [employer] Work Phone: [phone] 13:44-0400BP Bukayosu017 mm[Hg]Edilberto [employer] Work Phone: [phone] 13:440400BSA (Body Surface Area)2.31 m2 [employer] Work Phone: [phone] 13:44-5088Tfhrso501.34 cmLeroy [employer] Work Phone: [phone] 13:44-0400Pulse (Heart Rate)96 /minEdilberto [employer] Work Phone: [phone] 13:44-3310Gqvrph717.82 [employer] Work Phone: [phone] 14:54-0400BMI (Body Mass Index)32.71 kg/m2 Edilberto [employer] Work Phone: [phone] 14:54-0400Body toemte920.37 kgEricka [employer] Work Phone: [phone] 14:54-0400BP Imtwcrobo76 mm[Hg][employer] Work Phone: [phone] 14:54-0400BP Oheuqjjg733 mm[Hg][employer] 88-853180-52501173-50-5068 14:54-0400BSA (Body Surface Area)2.31 m2 [employer] 35-500268-16503560-18-6240 14:54-9652Czqznu531.34 Lisandra [employer] Work Phone: [phone] 14:54-0400Pulse (Heart Rate)88 /minEdilberto [employer] 66-142379-26331372-75-7568 14:54-6889Xwzgkv658.37 kgEdilberto [employer] Work Phone: [phone] 13:34-0400BMI (Body Mass Index)33.89 kg/m2 [employer] 40-135790-11016954-63-3380 13:34-0400Body kzhpda265.22 kgEricka [employer] Work Phone: [phone] 13:34-0400BP Tgpdlvqch60 mm[Hg]Edilberto [employer] Work Phone: [phone] 13:34-0400BP Slxgvvxi864 mm[Hg][employer] 54-487508-14401578-37-6621 13:34-0400BSA (Body Surface Area)2.35 m2 [employer] 11-403230-34736984-08-0291 13:34-6464Nlokrh863.34 NeilDogeomichelle [employer] Work Phone: [phone] 13:34-0400Pulse (Heart Rate)100 /minEdilberto [employer] 29-544213-03029071-19-0950 13:34-4884Ugyxln398.22 [facility] [employer] 39-181987-90198113-35-9933 13:00-0400BMI (Body Mass Index)33.47 kg/m2 [employer] 72-986549-71242583-34-7154 13:00-0400Body ubcblr575.86 kgEricka [employer] Work Phone: [phone] 13:00-0400BP Qkslxjtmg71 mm[Hg]Edilberto [employer] Work Phone: [phone] 13:00-0400BP Ymftbqli590 mm[Hg]Edilberto [employer] Work Phone: [phone] 13:BSA (Body Surface Area)2.34 m2 Edilberto [employer] Work Phone: [phone] 13:00-8134Kzvndi628.34 Lisandra [employer] Work Phone: [phone] 13:000400Pulse (Heart Rate)100 /minBright Fundsgavi [employer] Work Phone: [phone] 13:000809Cjnooi227.86 [facility] [employer] Work Phone: [phone] 12:BMI (Body Mass Index)34.31 kg/m2 Edilberto [employer] Work Phone: [phone] 12:290400Body qykkhf122.59 Gerardo [employer] Work Phone: [phone] 12:29-0400BP Xkafpgulh08 mm[Hg][employer] Work Phone: [phone] 12:29-0400BP Szeiejom527 mm[Hg]Edilberto [employer] Work Phone: [phone] 12:29BSA (Body Surface Area)2.36 m2 [employer] Work Phone: [phone] 12:293711Nvzams539.34 Lisandra [employer] Work Phone: [phone] 12:290400Pulse (Heart Rate)100 /minEdilberto [employer] 84-497702-81787222-37-2645 12:29-4284Nxvqlm770.59 [facility] [employer] 19-164922-69289475-65-7954 13:52-0400BMI (Body Mass Index)34.07 kg/m2 [employer] 85-734227-73217271-43-4297 13:52-0400Body atspqn335.82 Gerardo [employer] 71-476428-14324547-06-4229 13:52-0400BP Ilhrwtihm36 mm[Hg][employer] 05-096834-02252937-96-5504 13:52-0400BP Hfvxyhgq700 mm[Hg][employer] 97-282502-87129979-29-0083 13:52-0400BSA (Body Surface Area)2.36 m2 [employer] 58-342195-09479036-22-6234 13:52-1475Eeinyn558.34 cmLeroy [employer] 90-458567-48454284-87-2960 13:52-0400Pulse (Heart Rate)100 /minEdilberto [employer] 43-639906-02872570-53-5293 13:52-7776Fweqja243.82 [facility] [employer] 93-679544-29187419-00-1100 14:53-0400BMI (Body Mass Index)34.31 kg/m2 [employer] 50-164581-55173198-00-6233 14:53-0400Body ymheyj371.59 Gerardo [employer] 71-535899-96075570-23-7079 14:53-0400BP Axqwrftyd16 mm[Hg][employer] 55-544835-98271008-57-3068 14:53-0400BP Fnboiwil282 mm[Hg]Edilberto [employer] 80-516956-63096830-80-0680 14:53-0BSA (Body Surface Area)2.36 m2 Edilberto [employer] Work Phone: [phone] 14:53-3745Mmwqlr808.34 Lisandra [employer] 54-382436-02521884-58-4375 14:53-0400Pulse (Heart Rate)120 /minEdilberto [employer] 11-900368-54739640-45-1923 14:53-8353Syoqhf837.59 [facility] [employer] 82-506696-08048066-08-1438 13:24-0400BMI (Body Mass Index)34.38 kg/m2 [employer] 44-654114-94202743-44-8091 13:24-040Body ugaxep283.81 Gerardo [employer] 62-881506-71661120-15-4505 13:24-0400BP Wyyakninx48 mm[Hg]Edilberto [employer] 96-400017-20501238-72-6272 13:24-0400BP Urvsjmuw245 mm[Hg]Edilberto [employer] 52-079876-01710982-08-4555 13:240BSA (Body Surface Area)2.37 m2 [employer] 44-590384-69224808-33-4501 13:24-7140Jcseyu332.34 Lisandra [employer] 64-173200-17632692-71-5074 13:24-0400Pulse (Heart Rate)108 /minBright Fundsgavi [employer] 72-311544-02477504-14-3135 13:24-3523Vndnca427.81 [facility] [employer] 08-683771-57549022-99-0561 11:47-0400BMI (Body Mass Index)34.38 kg/m2 Edilberto [employer] Work Phone: [phone] 11:47-0400Body tjxokn172.81 kgEricka [employer] Work Phone: [phone] 11:47-0400BP Qapmyhobh63 mm[Hg]Edilberto [employer] Work Phone: [phone] 11:47-0400BP Txgkchkz274 mm[Hg]Edilberto [employer] Work Phone: [phone] 11:47-0400BSA (Body Surface Area)2.37 m2 [employer] Work Phone: [phone] 11:47-7208Mexsfq355.34 cmLeroy [employer] Work Phone: [phone] 11:47-0400Pulse (Heart Rate)116 /minEdilberto [employer] Work Phone: [phone] 11:47-7158Lxmzpm303.81 [place] [employer] Work Phone: [phone] 12:48-0400BMI (Body Mass Index)35.15 kg/m2 [employer] Work Phone: [phone] 12:48-0400Body uqzyuh567.31 kgEricka [employer] Work Phone: [phone] 12:48-0400BP Ifzixkotq86 mm[Hg][employer]il[employer]to [employer] Work Phone: [phone] 12:48-0400BP Ksyypwvg122 mm[Hg][employer] Work Phone: [phone] 12:48-0400BSA (Body Surface Area)2.39 m2 [employer] Work Phone: [phone] 12:48-4558Yxubcu560.34 Lisandra [employer] Work Phone: [phone] 12:48-0400Pulse (Heart Rate)76 /minEdilberto [employer] Work Phone: [phone] 12:48-1909Vxsvmp312.31 kgEdilberto [employer] Work Phone: [phone] 15:06-0500Pulse Ftbzllns50 %Edilberto [employer] Work Phone: [phone] 15:06-5668FxJ9% (BldA) [Mass fraction]97 % Ericka [employer] Work Phone: [phone] 14:14-0500BMI (Body Mass Index)36.26 kg/m2 Edilberto [employer] Work Phone: [phone] 14:14-0500Body Zziycflchfp07.1 [degF][employer]ilberto [employer] Work Phone: [phone] 14:14-0500Body qbwikg033.94 kgEricka [employer] Work Phone: [phone] 14:14-0500BP Omoruiimr65 mm[Hg]Edilberto [employer] Work Phone: [phone] 14:14-0500BP Zeaojezd502 mm[Hg]Edilberto [employer] Work Phone: [phone] 14:14-0500BSA (Body Surface Area)2.43 m2 Edilberto [employer] Work Phone: [phone] 14:14-7015Znrgdh094.34 Lisandra [employer] Work Phone: [phone] 14:14-0500Pulse (Heart Rate)112 /minEdilberto [employer] Work Phone: [phone] 14:14-0500Respiratory Rate20 /minEdilberto [employer] Work Phone: [phone] 14:14-0108Qzcjpn060.94 [facility] [employer] 75-629872-30922512-53-0759 13:36-0500BMI (Body Mass Index)36.26 kg/m2 [employer]ilberto [employer] Work Phone: [phone] 13:36-0500Body zwtyhp658.94 kgEricka [employer] 91-546519-20200131-40-9914 13:36-0500BP Wpbjvyema02 mm[Hg][employer] 95-845363-63611437-49-4737 13:36-0500BP Crizjifi437 mm[Hg]Edil[employer]to [employer] 48-118110-97331355-00-2883 13:36-0500BSA (Body Surface Area)2.43 m2 [employer]ilberto [employer] Work Phone: [phone] 13:36-2358Muoejq991.34 cmLeroy [employer] 66-189348-20229474-01-6695 13:36-0500Pulse (Heart Rate)76 /minEdilberto [employer] 50-049553-14369034-39-2025 13:36-3854Bsjqfh515.94 [place] [employer] 98-398668-03439620-56-4140 13:00-0500BMI (Body Mass Index)36.4 kg/m2 [employer] 53-704485-48363922-73-1815 13:00-0500Body Voaazijvoot57.6 [degF][employer] 02-295804-89797708-53-8554 13:00-0500Body yinexd058.39 kgEricka [employer] Work Phone: [phone] 13:00-0500BP Ydqspxbkr61 mm[Hg][employer]il[employer]to [employer] Work Phone: [phone] 13:00-0500BP Dijhyref549 mm[Hg]Edilberto [employer] Work Phone: [phone] 13:00-0500BSA (Body Surface Area)2.44 m2 Edilberto [employer] Work Phone: [phone] 13:00-9789Ukhjxg104.34 Lisandra [employer] Work Phone: [phone] 13:00-0500Pulse (Heart Rate)120 /minEdilberto [employer] Work Phone: [phone] 13:00-6745Nlnlkw607.39 kgEdilberto [employer] Work Phone: [phone] 13:38-0500BMI (Body Mass Index)35.98 kg/m2 [employer]il[employer] Work Phone: [phone] 13:38-0500Body Rxfjcnxcmxd42.8 [degF][employer]il[employer]to [employer] Work Phone: [phone] 13:38-0500Body ovtnua906.03 kgEricka [employer] 04-965506-31847038-62-2281 13:38-0500BP Goekgeezy40 mm[Hg]Edil[employer]to [employer] 81-549471-95315454-01-4172 13:38-0500BP Nxsflyov992 mm[Hg][employer] 94-338883-33935230-73-9705 13:38-0500BSA (Body Surface Area)2.42 m2 [employer] 18-945128-89749157-38-6868 13:38-8257Gxgpoe143.34 NeilClicker 11-24-2015 13:380507Pulse (Heart Rate)84 /minEdilberto The InfluenceRogerPenguin Computingyaw [employer] 11-24-2015 13:381254Xhojjd124.03 kgEdilberto [employer] Encounters Encounter DateEncounter TypeCare ProviderFacilityStart: 04-08-2025 End: 10-65-7668Wlpyrj outpatient new 45 minutesKimmie Yarbrough MD Work Phone: noms Senait EndocrinologyComment on above: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); Low libido; Encounter for dietary consultation; Class 1 obesity due to excess calories without serious comorbidity with body mass index (BMI) of 34.0 to 34.9 in adultStart: 04-08-2025 End: 91-87-8307Hsbinobebeto Yarbrough MD Work Phone: [facility] EndocrinologyStart: 04-08-2025 End: 68-81-4102Wcklmqbebeto Yarbrough MD Work Phone: [facility] EndocrinologyStart: 04-08-2025 End: 72-14-3395hiwoxpxvqfYGKWT F SABBAGHNot AvailableStart: 41-24-9758Elepdm outpatient visit 25 minutesWemadan Magana Other bvma OfficeStart: 62-53-1561Ypxox S Schworm Other [facility] OfficeStart: 08-58-8288Vufmjf outpatient visit 25 minutesEricka Muniz Other bvma OfficeStart: 05-91-9759Ficq R Fox Other [facility] OfficeStart: 12-20-2024 End: 38-42-1311clixhrdagoOrkciij Ryan Denike DOFacility:[facility] Start: 08-14-2024 End: 48-89-0653zlhofjxjyeZzia R Fox MD Work Phone: [facility] Work Phone: Start: 08-14-2024 End: 15-61-6675Cgxarup encounter procedureEricka Muniz MD Work Phone: [facility] Physician [facility] Work Phone: Start: 82-86-0235Luj-patient / Non-visitEricka Muniz MD Work Phone: [facility] Physician GroupAt[facility] Work Phone: Start: 07-19-2024 End: 44-36-0642Bueoqsp encounter procedureEricka Muniz MD Work Phone: [facility]-Res[facility] Therapy Work Phone: Start: 07-19-2024 End: 00-31-2622eplqhmdojbPgdb R Fox MD Work Phone: [facility] Work Phone: Start: 06-21-2024 End: 41-11-6031dgmkhjauklTqpct Beth Domingalifecare [facility] DRILL PRESS SET UP OPERATOR RADIAL-CNPFacility:[facility]yStart: 06-12-2024 End: 09-24-9208kpbjlvakqoNogsw Beth Eziooegigilifecare hospital of [facility] DRILL PRESS SET UP OPERATOR RADIAL-CNPFacility:[facility] HospitalyStart: 21-01-4338Okipkg outpatient visit 25 minutesWemadan Magana Other [facility] OfficeStart: 87-38-1140Nqtw R Fox Other [facility] OfficeStart: 25-02-3702Bpagck outpatient visit 25 minutesEricka Muniz Other bvMA OfficeStart: 01-11-2024 End: 81-30-5584zbjcxmkaweRxuty Beth Kloepfer DRILL PRESS SET UP OPERATOR RADIAL-CNPFacility:[facility] Hospitaltart: 12-14-2023 End: 87-81-8983Wvjrmvwli department patient visitRADHA Upton Work Phone: [facility]-Emergency Room Work Phone: Start: 12-03-2023 End: 61-10-8315Szmaarfco department patient visitAPRDouglas Upton Work Phone: [facility] Work Phone: Start: 11-14-2023 End: 73-94-2192Mpvbgs outpatient visit 25 minutesEricka Muniz Other bvma OfficeStart: 56-44-4397Uqsr Pablo Muniz Other bvma OfficeStart: 95-94-2121Mwbi examination performed Ericka Responsa Start: 76-39-7649Vskeowxkm encounterPaarelis Jose Gelaciomary DO Work Phone: noms ENT SANDUSKYStart: 06-16-2023 End: 93-32-2301Jye-admission assessmentPETER D [facility] Start: 98-32-7282Hkbhwa outpatient visit 15 minutesEricka Muniz Other bvma OfficeStart: 63-75-1719NussxEdilberto Zamora Other bvma OfficeStart: 15-44-5164Icnr examination performed Ericka Responsa Start: 29-56-1288Rfhwyd outpatient visit 25 minutes Edilberto Zamora Other bvma OfficeStart: 36-79-5598uczdjezffiZBZGP D HIGHLANDERFacility:B1Kgzsq: 07-28-2022 End: 99-76-3325nrsmnbvggdHISWH D HIGHLANDERFacility:P9Leojf: 53-53-9887CmmNjuaj L Schroeder Other bvma OfficeStart: 65-75-1218PulovEdilberto Zamora Other bvKATHLEEN OfficeStart: 55-82-2873Dwzlgs ServicesEricka Muniz Other bvma OfficeStart: 65-20-9217Tqwj examination performed Edilberto Schaefferst. john's episcopal hospital [facility] shoreyaw [facility] Start: 07-27-2022 End: 46-21-7389Iqvsyx outpatient visit 25 minutesLergavi Lawrence Zamora Other bvma OfficeStart: 06-23-2022 End: 78-87-5702tlrzqdwahrLWWHK D [facility]ENTERFacility:R5Hbuix: 05-27-2022 End: 42-52-6315twurjvtyjkIPU [facility] Work Phone: Start: 05-27-2022 End: 06-00-4600Qgfvnrgclc [facility]-Wound Care [place]Start: 05-26-2022 End: 41-48-4490ciltxlrbmwMDK [facility] Work Phone: Start: 05-26-2022 End: 83-88-3639Ttkijrz encounter procedureSt. [facility]-CT Strub RdStart: 20-07-6093Blekoxxypu [facility]- Wound Care [place]Start: 04-22-2022 End: 74-95-5288pljbmajitaJAL [facility] Work Phone: Start: 04-22-2022 End: 97-11-4184Jfqtvfm encounter procedureSt. [facility]-MRI Main CampusStart: 04-21-2022 End: 26-40-2263wgcxkxfwvdUXR [facility] Work Phone: Start: 04-21-2022 End: 03-92-1292Aiipjes encounter procedureSt. Francis Hospital [facility]tr-MRI Main CampusStart: 52-16-2112Emxfnlzloo [facility]- Wound Care [place]Start: 04-01-2022 End: 74-49-3306Pvszecrss department patient visitSt. Francis Hospital Ctr- Emergency RoomStart: 54-44-5271Msrpxh outpatient new 20 minutesJeremy P Dyana Other BVKATHLEEN OfficeStart: 44-32-6429Clhdvn outpatient visit 15 minutesJeremy P Dyana Other BVKATHLEEN OfficeStart: 55-50-7132Odolkt outpatient visit 15 minutesJeremy P Dyana Other BVKATHLEEN OfficeStart: 81-58-0238Jmvnld outpatient visit 15 minutesJeremy P Dyana Other BVKATHLEEN OfficeStart: 49-66-8980SrbEqhq R Muniz Other BVKATHLEEN OfficeStart: 53-78-0900Nsyw R Muniz Other BVKATHLEEN OfficeStart: 73-93-1439Tujwfi outpatient visit 15 minutesMark R Muniz Other BVMA OfficeStart: 38-70-0800WcwXpkpm L Schroeder Other BV[facility] OfficeStart: 23-49-7666KlimzEdilberto Zamora Other [facility] OfficeStart: 35-43-0525Geqgjr outpatient visit 15 minutesJeremy P Dyana Other BVMA OfficeStart: 50-94-7809Shnn examination performed Edilberto [facility]oraL[facility] Start: 00-11-1426Zrohta outpatient visit 25 minutes Edilberto Zamora Other BVKATHLEEN OfficeStart: 36-41-7388Otimef outpatient visit 25 minutesJeremy P Dyana Other BV[facility] OfficeStart: 12-99-6215Bqlaik outpatient new 45 minutesJeremy P Dyana Other BVMA OfficeStart: 72-38-8490Swzlke ServicesJeremy P Dyana Other BV[facility] OfficeStart: 59-80-0468Iizyxg outpatient visit 25 minutesMark R Muniz Other BVMA OfficeStart: 08-74-5178Oajh examination performed Edilberto ZamoraWest BendITADSecurity [facility] Start: 41-11-3877Mlqvur outpatient visit 25 minutes Edilbertogavi Zamora Other BVKATHLEEN OfficeStart: 56-27-9761BejVssin L Schroeder Other BVMA OfficeStart: 02-08-2022Medicare LabGuccioy Melinda Zamora Other 000-2963FUSI-NpwOizgj: 50-66-2984Vixtu Melinda Zamora Other BVKATHLEEN OfficeStart: 09-09-2021Medicare LabGuccioy Melinda Zamora Other 638-2060IJCO-CdqHtvps: 09-63-9156Mrnuw Melinda Zamora Other 732-2838GJKM-RveTvkgd: 80-95-0395Lphg examination performed Edilberto ZamoraPowerReviews [facility] Start: 91-21-8038Pvmxsq outpatient visit 25 minutes Edilbertogavi Zamora Other BVMA OfficeStart: 34-28-7617CjbVxls Pablo Muniz Other BVMA OfficeStart: 59-67-1066Asou Pablo Muniz Other BVMA OfficeStart: 55-85-7287Mfyvjn outpatient visit 25 minutesEricka Shah Muniz Other BVMA OfficeStart: 86-95-0957Sglfquhyk for general adult medical examination without abnormal findingsMontgomery NetasqWest BendITADSecurity [facility] Start: 71-15-4373Qyzq exam performedEdilberto Fraziernchard [employer] [facility] Start: 81-30-9574Qjadib outpatient visit 25 minutes Edilbertogavi Zamora Other BVMA OfficeStart: 03-02-2021Medicare LabEdilberto Jaraeder Other 030-5356EWYY-ObqCgteh: 63-37-2734Mazqwbriana Zamora Other 515-3392HBYD-AlhWmabt: 86-79-7501Nztyfb outpatient visit 15 minutesMark Pablo Muniz Other BVMA OfficeStart: 79-52-5714Oytviv outpatient visit 15 minutesMark Pablo Muniz Other BVMA OfficeStart: 30-33-3246Sggbjf outpatient visit 15 minutesMark Pablo Muniz Other BVMA OfficeStart: 09-29-2020Medicare LabGuccigavi Melinda Zamora Other [phone]-FisWroow: 80-10-9626Hrimv Melinda Zamora Other 505-8810QUAF-YmfRowvp: 69-68-1375Aylw exam performedCopper Queen Community Hospitalgavi ZamoraThe [facility] [employer] [facility] Start: 25-81-7900Ykrrta outpatient visit 25 minutes Edilberto Zamora Other BVMA OfficeStart: 03-25-2020 End: 62-85-7389Tjkyzuq encounter procedureTri[facility] Start: 03-25-2020 End: 86-15-9867Vmwnhfhezo hospital visit by [facility] MRIComment on above:Right knee pain, unspecified chronicityStart: 78-58-0255Ezzyqn outpatient visit 15 minutesEricka Muniz Other BVMA OfficeStart: 02-12-2020 End: 68-95-4558Lqvqilu encounter procedureMARK Pablo [facility] HospitalStart: 02-12-2020 End: 85-58-7084Ubwssdtsbl hospital visit by [facility] MRIComment on above:Acute pain of right shoulderStart: 42-37-8927Thtock outpatient visit 15 minutesEricka Muniz Other BVMA OfficeStart: 12-28-2019 End: 20-19-3210Fxhiisztnc hospital visit by Cathy Escalona Work Phone: mthz ORComment on above: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, initial encounter (Primary Dx)Start: 04-83-6598Gwcynb outpatient visit 25 minutesEdilberto Zamora Other BVMA OfficeStart: 12-26-2019 End: 98-50-9254Vowvygu encounter procedureSAd[facility] Start: 12-26-2019 End: 77-37-9187Grnbgujmbq hospital visit by physicianMon[facility] Lab Drawing RoomMTHZ LaboratoryComment on above:ArrivedStart: 12-24-2019 End: 13-27-4194Bzacaws encounter procedureSAdams County Regional Medical Center Start: 12-24-2019 End: 81-40-4429Ydspzuxjmi hospital visit by physicianMon[facility] Covid19 Pat Screening ScheduleMTHZ EKGStart: 86-14-1174FnbTnsng L Schroeder Other BVMA OfficeStart: 33-23-7524Dvfna L Schroeder Other BV[facility] OfficeStart: 69-07-4060Bdxkwq outpatient visit 15 minutesMark DriverSide Other BVMA OfficeStart: 24-83-6777Rpwgvo outpatient visit 25 minutesMark R Netasq Other BVMA OfficeStart: 43-35-6222VcmXonh R Netasq Other BV[facility] OfficeStart: 50-78-5137Lktf R Netasq Other BVMA OfficeStart: 52-82-0189Llsp exam performedLerWine in Black Start: 68-90-2418Xirgtp outpatient visit 25 minutes Edilberto Zamora Other BV[facility] OfficeStart: 75-73-6255KlhFmjxn L Schroeder Other [facility] OfficeStart: 30-80-7729TsvfuEdilberto Zamora Other BVMA OfficeStart: 29-91-3662Caqwoyyto for general adult medical examination without abnormal findingsCopper Queen Community HospitalWine in Black Start: 97-40-3568Flmwsom general medical examination at a health care facilityMontgomery Responsa Start: 54-16-9199Gaxjwono preventive med est patient 40-64yrsMark R Muniz Other bvma OfficeStart: 81-49-2478KbtDbkc R Muniz Other BVXD OfficeStart: 85-92-1140Qsec R Muniz Other bvma OfficeStart: 07-89-9795Sgwf exam performedLergavi Mandelbrot Project Start: 20-55-0891Mtuvgx outpatient visit 25 minutes Edilberto Melinda JaraZamora Other bvma OfficeStart: 13-19-1007Qrheuq-up visitEncompass Health Rehabilitation Hospital Of New EnglandMODASolutions Corporation Start: 54-53-1941Omgkha outpatient visit 5 minutesEncompass Health Rehabilitation Hospital Of New EnglandMODASolutions Corporation Start: 61-82-3996Vmjjyqaihfvou follow-up visitEdilberto Mandelbrot Project Start: 29-08-9596CabnquvrzKpacw Trudy Other bvma OfficeStart: 69-70-3378Qgwit Trudy Other BVUP OfficeStart: 50-88-1298ObiNcjvk L Schroeder Other [facility] OfficeStart: 92-51-1131XejltEdilberto Zamora Other [facility] OfficeStart: 00-58-5506ImhbmoanoLqkld Trudy Other [facility] OfficeStart: 74-65-1405Tyikp Trudy Other [facility] OfficeStart: 61-87-1079Ilpiun outpatient new 20 minutesChase Trudy Other [facility] OfficeStart: 85-98-2790Bgdrcnqtg for general adult medical examination without abnormal findingsCopper Queen Community HospitalWine in [facility] Start: 72-80-8121Qtbjtnl general medical examination at a health care facilityMark FlavioPowerReviews Inc Start: 05-54-1455Cuwpok outpatient visit 15 minutesEricka Muniz Other bvma OfficeStart: 60-07-3015Ljxcva ServicesNatty Paniagua Other [facility] OfficeStart: 39-88-5764Vwgdvkyn naomi Jungam Other [facility] OfficeStart: 32-16-1231Nfnm exam performedLergavi Mandelbrot Project Start: 63-61-5283Ptgtfx outpatient visit 25 minutes Edilberto Zamora Other [facility] OfficeStart: 50-75-5055DfmLhlso L Schroeder Other [facility] OfficeStart: 50-48-5550Onlpm L Schroeder Other bvma OfficeStart: 90-04-9299Gyjgecw encounter procedureMAUDAY Ledezma [facility] PhysiciansStart: 10-12-2018 ProcedureDarigoberto Morris Other op BVHStart: 25-84-9696Saplp J Meier Other op BVHStart: 25-03-2820Qemu exam performedEdilberto Zamora Other bvma OfficeStart: 79-77-3039Pcozrf outpatient visit 25 minutesEdilberto Zamora Other [employer] Start: 82-62-3663Cwngif ServicesEdilberto Zamora Other bvma OfficeStart: 65-89-6218QubauEdilberto Zamora Other bvma OfficeStart: 39-72-8768Elkikxdhs for general adult medical examination without abnormal findingsGuccigavi Mandelbrot Project Start: 88-87-4834Nxbuxox general medical examination at a health care facilityLeroy SeraPowerReviews Inc Start: 10-09-9622Kgekte outpatient visit 25 minutesMark R Muniz Other [facility] OfficeStart: 21-01-9518RxgLqxg R Muniz Other [facility] OfficeStart: 98-13-2239Jdwy R Muniz Other [facility] OfficeStart: 31-32-6552Rbknru ServicesLergavi Zamora Other [facility] OfficeStart: 56-73-8549Jjjbw Melinda Zamora Other [facility] OfficeStart: 48-65-9984MyqhebyxkEwivzsn Gigi Josederrickjorge Other op [facility]Start: 30-47-9082Eobagcg Gigi Joseschjorge Other op [facility]Start: 54-82-6941Nhjq exam performedLergavi Zamora Other [facility] OfficeStart: 23-02-8014Vrzwgp outpatient visit 25 minutesLeroy Melinda Zamora Other [employer] Start: 18-76-6133MzsNwbfh Melinda Zamora Other [facility] OfficeStart: 97-05-4892Porsf L Schroeder Other [facility] OfficeStart: 88-01-0263Livz-Kal Muniz Other [facility] OfficeStart: 04-20-2018 End: 67-64-1863Xvta R Muniz Other [facility] OfficeStart: 93-87-7795Mmsvvq ServicesPetecarmina Paniagua Other [facility] OfficeStart: 77-59-3856Qdse exam performedLergavi Zamora Other [facility] OfficeStart: 02-10-3425Pvkcsw outpatient visit 25 minutesLergavi Zamora Other [employer] Start: 77-83-0437GseBsvnw L Zamora Other [facility] OfficeStart: 81-27-0769Dkwhf L Zamora Other [facility] OfficeStart: 35-45-4790Fumuvc outpatient visit 25 minutesMark R Muniz Other [facility] OfficeStart: 09-08-4149MohSexk R Muniz Other [facility] OfficeStart: 16-51-2674Bhos R Muniz Other [facility] OfficeStart: 20-51-8722Lckurk ServicesMark R Muniz Other [facility] OfficeStart: 91-21-5388Kzzr R Muniz Other [facility] OfficeStart: 19-65-6366Mjkh exam performedLeroy L Zamora Other [facility] OfficeStart: 12-73-6743Aqpvhg outpatient visit 25 minutesLeroy L Zamora Other [facility] Start: 43-04-6678Auigvr ServicesMark R Muniz Other [facility] OfficeStart: 89-15-8668Upwk R Muniz Other [facility] OfficeStart: 05-19-6842AonEotse L Zamora Other [facility] OfficeStart: 69-99-6192Vyrek L Zamora Other [facility] OfficeStart: 11-19-6291Pwkkwe ServicesLeroy L Zamora Other [facility] OfficeStart: 98-88-6489Gtapt L Zamora Other [facility] OfficeStart: 50-67-8675Pskjxb outpatient visit 25 minutesMark R Muniz Other [facility] OfficeStart: 49-47-7688RiiMmrh R Muniz Other [facility] OfficeStart: 63-72-0927Jtvz R Muniz Other [facility] OfficeStart: 05-36-8170Fbirnp ServicesNatty Paniagua Other [facility] OfficeStart: 48-86-3099Vsrywkfr z Graham Other [facility] OfficeStart: 11-25-9769Jyzf exam performedEdilberto ZamoraIndicee Start: 27-29-2332Bdlerm outpatient visit 25 minutes Edilbertogavi Zamora Other [facility] OfficeStart: 52-28-0826ExyWexln L Schroeder Other [facility] OfficeStart: 46-59-6173Rocpw L Schroeder Other [facility] OfficeStart: 51-21-4571Sdriqc outpatient visit 15 minutesMark Pablo Muniz Other [facility] OfficeStart: 85-00-6310Cefx exam performedLergavi Zamora Other [facility] OfficeStart: 83-00-5866Wvakhy outpatient visit 25 minutesLergavi Zamora Other [employer] Start: 53-79-2276WqmAaxqm L Schroeder Other [facility] OfficeStart: 50-75-6961Kwlah L Schroeder Other [facility] OfficeStart: 49-12-8322Fznpyg outpatient visit 25 minutesEricka R Muniz Other [facility] OfficeStart: 02-17-2017 End: 52-39-2367Bheas SrvcMark R Muniz Other [facility] OfficeStart: 02-17-2017 End: 05-24-9087Qbub R Muniz Other [facility] OfficeStart: 71-49-7711Gutdoo outpatient visit 25 minutesMark R Muniz Other [facility] OfficeStart: 16-64-0512Wiwi exam performedLergavi L Zamora Other [facility] OfficeStart: 42-12-0924Hgbhlk outpatient visit 25 minutesLeroy L Zamora Other [employer] Start: 17-95-8563FqgBhsbm L Zamora Other [facility] OfficeStart: 22-79-6470Harml L Zamora Other [facility] OfficeStart: 91-22-6150Cfwxjo outpatient visit 25 minutesMark R Muniz Other [facility] OfficeStart: 51-60-2557DrcFrgs R Muniz Other [facility] OfficeStart: 89-74-3227Wytw R Netasq Other [facility] OfficeStart: 23-17-6280Iqvec vcDarigoberto Morris Other [facility] OfficeStart: 98-99-1504Nncil J Meier Other [facility] OfficeStart: 39-21-9658Cpcf exam performedLeroy L Zamora Other [facility] OfficeStart: 70-20-5614Xosskh outpatient visit 25 minutesLeroy L Zamora Other [employer] Start: 07-43-4136KeeVlciv L Zamora Other [facility] OfficeStart: 02-06-2115Qgxzm L Zamora Other [facility] OfficeStart: 47-08-2965Rwedxd outpatient visit 25 minutesMark R Muniz Other [facility] OfficeStart: 39-38-0002Riet exam performedLeroy L Zamora Other [facility] OfficeStart: 33-00-3857Fdwnud outpatient visit 25 minutesLeroy L Zamora Other [employer] Start: 64-97-7515ShgIanwz L Zamora Other [facility] OfficeStart: 06-67-1589Dujst L Zamora Other [facility] OfficeStart: 81-73-2496Ysdeka outpatient visit 15 minutesMark R Muniz Other [facility] OfficeStart: 00-04-4909Xjdlop outpatient visit 15 minutesMark R Muniz Other [facility] OfficeStart: 84-90-8890Bmddbv outpatient visit 15 minutesMark R Muniz Other [facility] OfficeStart: 85-40-9670Qswidf outpatient visit 15 minutesLergavi L Zamora Other [facility] OfficeStart: 22-03-9661QuqAswwo L Zamora Other [facility] OfficeStart: 25-09-0869Lsrjb L Zamora Other [facility] OfficeStart: 56-47-9614Zpekjo outpatient visit 25 minutesMark R Muniz Other [facility] OfficeStart: 66-47-5922QclAffyg L Zamora Other [facility] OfficeStart: 78-78-8668Cpaqp L Zamora Other [facility] OfficeStart: 31-31-9732Uthe exam performedLergavi L Zamora Other [facility] OfficeStart: 06-38-3804Sugqmf outpatient visit 25 minutesLergavi L Zamora Other [employer] Start: 56-95-9769JnkUnjoy L Zamora Other [facility] OfficeStart: 93-37-3912Ocsce L Zamora Other [facility] OfficeStart: 92-07-6327Atmfpu outpatient visit 15 minutesMark R Muniz Other [facility] OfficeStart: 37-13-5065Nstu exam performedLergavi ZamoraIndicee Start: 65-47-4013Vyrrpn consultation new/estab patient 80 minLeroy L Zamora Other [facility] OfficeStart: 48-00-3341Uuztoq ServicesMark R Muniz Other [facility] OfficeStart: 18-54-3550Wygp R Muniz Other [facility] OfficeStart: 46-30-2976Bgajue outpatient visit 25 minutesMark R Muniz Other [facility] OfficeStart: 16-13-7765KoifmfoqkFzlk D Watson Other op [facility]Start: 85-90-0612Dwyt D Watson Other OP [facility]Start: 04-81-2385Qecphm consultation new/estab patient 60 minJesus Del Cid Other [facility] OfficeStart: 96-53-6763Gahvwi ServicesMark R Muniz Other [facility] OfficeStart: 35-89-3800Uuqi R Muniz Other [facility] OfficeStart: 42-98-7830Zidfz SrvcMark R Muniz Other [facility] OfficeStart: 46-16-3281Dzmu R Muniz Other [facility] OfficeStart: 70-51-1852ZujBece R Muniz Other [facility] OfficeStart: 08-05-2015 End: 56-62-8087Hssc R Muniz Other [facility] OfficeStart: 08-05-2015 End: 58-10-9032Gqraw SrvcMark R Muniz Other [facility] OfficeStart: 22-91-7235Pwievm outpatient visit 15 minutesLindsay Kimball Other [facility] OfficeStart: 81-09-1384Qwbsje outpatient new 45 minutesMark R Muniz Other [facility] Office Procedures DateProcedureProcedure DetailPerforming ClinicianStart: 48-68-9987Ntqekfxmivjsx metabolic panelMark FoxStart: 33-92-6517Dkzhqurbnb A1c measurementMark FoxStart: 33-59-9311Bajtr panelMark FoxStart: 67-05-7331Udfus SchwormStart: 07-19-2024 Plain chest X-rayEricka Muniz MD Work Phone: Start: 85-40-0768Msfehxzqxowlo metabolic panelMark Muniz Start: 54-94-5958Sxthgppogk A1c measurementMark FoxStart: 38-76-7071Qyhph panel Ericka FoxStart: 17-77-4050Cmlswoe stimulating hormone measurementMark FoxStart: 25-09-8923Uazxvmr B12 measurementWendi SchwormStart: 47-08-4055Zuzjcdcb foot examinationMark FoxStart: 29-75-2583Xffdleepce A1c measurementMark FoxStart: 14-31-3807Ilko recent diastolic blood pressure 80-89 mm hgWendi SchwormStart: 89-02-7721Kyat recent systolic blood pres>/equal 140 mm hgWendi SchwormStart: 73-73-5995Lubn recent systolic blood pressure <130 mm hgWendi SchwormStart: 92-66-5962Gkkk FoxStart: 02-71-5364Ataylahphuccr metabolic panelMark FoxStart: 85-77-8830Hxgurapkltj mean corpuscular volume determinationMark FoxStart: 36-46-6013Mrmze panelMark FoxStart: 56-64-5610Ihsf FoxStart: 07-28-2023 Comprehensive metabolic panelWendi SchwormStart: 56-26-1566Lzszfesyrj A1c measurementWendi SchwormStart: 85-87-5674Eyqqd panelWendi SchwormStart: 95-09-4396Ftujb SchwormStart: 01-25-2023 End: 36-85-5037Wplgrepxlhawh metabolic panelMark FoxStart: 19-41-3876Avywrkng foot examinationMark FoxStart: 22-36-1788Qjojtppmwdm mean corpuscular volume determinationMark FoxStart: 85-89-0183Sjjz recent diastolic blood pressure < 80 mm hgMark FoxStart: 66-28-1370Jnnn recent systolic blood pressure <130 mm hgMark FoxStart: 01-25-2023 End: 57-56-5756Lwbv FoxStart: 27-38-6121Wxvbttniql A1c measurementMark FoxStart: 60-16-0807Kpzhj panelMark FoxStart: 28-72-2345Zvw UA (for Ketones)Edilberto ZamoraStart: 01-41-0495Zruyv inorganic phosphate measurementLer Zamora Start: 90-02-5475Tgok FoxStart: 57-73-9070Eetltmuw foot examinationLerMyMichigan Medical CenterStart: 65-13-1921Wyzsrb cur meds by liv Reveles Willow HillStart: 49-05-9293Qhagelzxsdamf of current medicationsMark FoxStart: 07-21-2022 Comprehensive metabolic panelLerMyMichigan Medical CenterStart: 78-41-0722Oqojcyxfws A1c measurementLerMyMichigan Medical CenterStart: 41-30-8980UZYSNEFFMATM/Urine Creat RatioLerMyMichigan Medical CenterStart: 57-17-0632Rlmckmwyvdw hormone measurementLerMyMichigan Medical CenterStart: 79-84-6380Rdlfcfd D, 25-hydroxy measurementLerMyMichigan Medical CenterStart: 70-83-7545Vlbo FoxStart: 65-39-5555Bchms panelLerMyMichigan Medical CenterStart: 26-20-5642ZS of right foot Start: 42-66-6851S-ray of left ankleMark FoxStart: 91-80-5434IVM of right foot with contrastStart: 94-14-2254XZN of right ankle with contrastStart: 04-05-2022 C-reactive protein measurementMark FoxStart: 04-93-3908Pqgrcizs blood countMark FoxStart: 14-94-7208Nlcwxpmyhwgwr metabolic panelMark FoxStart: 04-05-2022 Erythrocyte sedimentation rate, non-automatedMark FoxStart: 55-94-5059ATX of lower extremityLerMyMichigan Medical CenterStart: 72-87-8206Dzcuv lactate measurementMark Muniz Start: 16-52-7569Wmysgm scan of lower limb veinsStart: 59-91-5140I-ray of right footStart: 43-71-2934Hqoqbk cur meds by liv Armstrong MarchandStart: 81-46-3418Bghyvuistukvj of current medicationsMark FoxStart: 22-28-4886A-ray of left ankleJeremy SeptemberandStart: 34-56-9622Hotxyhwbyj radiologic examination Bo Gunn Other Start: 88-36-5245Gxuthb cur meds by liv Armstrong MarchandStart: 94-50-8911Nyrxhgyuuowmf of current medicationsMark FoxStart: 59-10-3979Mndsimjwn of ankleMark FoxStart: 20-44-1222Gqvkjka boot, non- pneumatic, with or without joints, with or without interface material, prefabricated, dcu-zlw-duybiBxna FoxStart: 76-58-6274H-ray of left ankleJeremy SeptemberandStart: 16-45-9561K-ray of left footJeremy tart: 02-17-2022 End: 01-24-2309Nlnarfhkmwzqz metabolic panelJeremy tart: 02-17-2022 Destruction of lesion of skinMark FoxStart: 38-50-5051Zalsyx cur meds by liv Santiago FoxStart: 52-88-5568Kofbygoveattr of current medicationsMark FoxStart: 82-64-7051Dxhnfjvcnz A1c measurementJescripps memorial hospital tart: 14-05-9530Hosjh panel Franky SeptemberVirginia Mason Hospitalrt: 99-25-8532HNHNPZGRJLQU/Urine Creat RatioJeremy [facility] Start: 39-81-3292Wurs FoxStart: 95-31-7644Ztplni cur meds by liv Muniz Start: 15-15-7916Rqrkeaqihcren of current medicationsMark FoxStart: 01-18-2022 Diabetic foot examinationLer Marekcorey hospitalStart: 90-50-3860Puf UA (for Ketones) Edilberto Jaracorey hospitalStart: 87-44-4307Jujf FoxStart: 71-42-0562Jfhhqy cur meds by liv Jaracorey hospitalStart: 93-29-7407Uqhahexntbojk of current medicationsMark FoxStart: 96-60-7195Gmuvygvqj of callusMark FoxStart: 73-11-5418Uxwlzo cur meds by liv [facility] Centertart: 54-29-9090Byxdfgybdetry of current medications Ericka FoxStart: 23-02-8774Tvepyifpbanko metabolic panelEdilberto JaraPresbyterian Hospitalart: 67-13-2390Lwydoygbjaq mean corpuscular volume determinationLergavi Jaracorey hospitalStart: 52-34-8858Ijozj glutamyl transferase measurementLergavi Jaracorey hospitalStart: 53-90-1332Nftdyvacen A1c measurementLeroy Willow Hillart: 01-01-2022 MICROALBUMIN/Urine Creat RatioLeroy Willow HillStart: 62-50-2198Dzui FoxStart: 92-34-6357Moszjm cur meds by liv Armstrong SeptemberVirginia Mason Hospitaltart: 10-20-2021 Documentation of current medicationsMark WendenStart: 86-92-0955Zxqdhmyuedl of nail Ericka FoxStart: 44-99-6004Lyqnhtuu of abscessMark FoxStart: 55-69-0065Dlykqiskj on skinMark FoxStart: 01-80-6790Dpt-scan lxtr art/artl bpgs uni/lmtd studyJeremy tart: 06-75-4797Mwu-invasive physiologic study extremity 3 levlsJeremy tart: 45-14-6866Wubskb cur meds by liv Armstrong SeptemberVirginia Mason Hospitaltart: 29-47-2880Nwykpikiwvmli of current medicationsMark FoxStart: 17-71-1096Ltzykgf ultrasonography of artery of lower limbJeremy tart: 18-46-9050Lcwgt X- ray of toeJeremy SeptemberVirginia Mason Hospitaltart: 45-60-7343Uyljv microscopy, culture and sensitivitiesJeremy rt: 27-54-4195Ejvevahb foot examinationLeroy Willow Hillart: 75-17-3620Eafjgd cur meds by liv Reveles Willow HillStart: 88-01-2219Cfvrqxdllahpv of current medicationsMark WendenStart: 40-19-5603PE-Dip Edilberto Willow HillStart: 49-41-9400Rnjv FoxStart: 46-87-9677Hcfuckgldbgfz metabolic panelLeroy Willow HillStart: 85-03-9064Izaeqskzghl mean corpuscular volume determinationLeroy Willow HillStart: 31-46-8233Hzeurftqrl A1c measurementLeroy [facility]art: 68-43-2980Wrfia panelLeroy [facility] Hospitalart: 99-22-4481Yjxyx metabolic panel calcium totalMark FoxStart: 42-64-2123Ciszn glutamyl transferase measurementLeroy Willow HillStart: 40-59-6413Wuipxbhyyd A1c measurementMark Muniz Start: 15-30-0485Pxljintqdqmrf metabolic panelMark FoxStart: 06-24-2021 Erythrocyte mean corpuscular volume determinationMark FoxStart: 06-24-2021 Hemoglobin A1c measurementMark FoxStart: 29-34-8084Nbpth panelMark FoxStart: 53-66-5631Vzo UA (for Ketones)Edilberto MarekederStart: 90-70-7619Ebjd FoxStart: 03-73-6242Ruzeokjp foot examinationLeroy Marekcorey hospitalStart: 85-40-8982Hjmowa cur meds by liv JaraederStart: 38-38-0062Mvzlsetdyokbw of current medicationsMark FoxStart: 37-90-8260Xvwffzvuekwgj metabolic panelLergavi Zamora Start: 93-00-0303Yyuptcragap mean corpuscular volume determinationLeroy MarekStart: 46-98-6404Xuensnhyfd A1c measurementLeroy MarekbrianStart: 11-08-1653Yqywpnxthyh hormone measurementLeroy Marekcorey hospitalStart: 17-90-4285Cnszl inorganic phosphate measurementLeroy Marekcorey hospitalStart: 12-23-2020 End: 30-61-7632Vqzzwvjbqytta metabolic panelMark FoxStart: 10-42-8746Eevlpk cur meds by liv wellsMontgomery FoxStart: 56-28-1861Teijnbukfvpnl of current medications Ericka FoxStart: 41-61-9208Skuwhgezart mean corpuscular volume determinationMark FoxStart: 22-14-1305Jucabsderd A1c measurementMark FoxStart: 44-15-9044Pceyy panelMark FoxStart: 65-03-8484DXQDDKRMEIIB/Urine Creat RatioGuccigavi Zamora Start: 77-33-2184Mhqtzedakl, automatedMark FoxStart: 43-03-0776Jtdb FoxStart: 28-72-3364Bas UA (for Ketones)Edilberto MarekederStart: 98-03-3810Xpvk FoxStart: 88-38-9949Pimntqpc foot examinationLeroy MarekbrianStart: 12-95-3146Vqg meds verified w/pt or reLeroy SchroederStart: 49-28-9627Nidadifzttzog of current medicationsMark FoxStart: 88-31-8688Zwxsgajapmzpb metabolic panelLergavi Zamora Start: 26-21-4580Pusajpbwnq A1c measurementMark FoxStart: 20-15-1225Gqdwtqanyt glycosylated x2rFpqzagavi ZamoraStart: 55-83-3645Tru UA (for Ketones)Edilbertogavi ZamoraStart: 10-47-2577Hczp FoxStart: 71-85-5329Goyodvmz foot examination Edilbertogavi ZamoraStart: 41-65-8872Ddc meds verified w/pt or reLeroy Sera Start: 94-48-5384Qsswolekuwanh of current medicationsMark FoxStart: 03-28-2020 Glucose quantitative blood xcpt reagent stripLeroy MarekStart: 03-28-2020 Hemoglobin A1c measurementMark FoxStart: 70-79-7236Mcqqsoexbr glycosylated a1c Edilberto ZamoraStart: 96-22-1955Adyqsap function panelLergavi ZamoraStart: 09-87-8111Iosycwc function panelEricka FoxStart: 22-51-8882Ghg any jt lower extrem w/o contrast matrlLUIS JAKATHERINEGUIStart: 44-03-9935Gaj any jt lower extrem w/o contrast matrlKara J Sherr[place] Work Phone: start: 89-95-1310Eyp meds verified w/pt or reMark Muniz Start: 69-43-7525Aowavcudysgxb of current medicationsMark FoxStart: 02-12-2020 Mri any jt upper extremity w/o contrast matrlLUIS JAKATHERINEGUIStart: 16-64-4457Ecw any jt upper extremity w/o contrast matrlKara J [place] Work Phone: start: 58-94-6951Git meds verified w/pt or reLeroy SeraStart: 13-29-2167Udlqdpkfhiqej of current medicationsMark FoxStart: 45-35-2545VLQUKRW, WHOLE BLOODSteven C Escalona Work Phone: Start: 21-64-0655Hsnog metabolic panel calcium total Edilberto ZamoraStart: 84-04-7853Qde meds verified w/pt or reLeroy Sera Start: 19-33-0683Mjxvzvjvzjaxs of current medicationsMark FoxStart: 12-27-2019 Hemoglobin A1c measurementMark FoxStart: 29-14-7851Jxsurawpwq glycosylated a1c Edilberto ZamoraStart: 62-05-3574Zyano of urea nitrogen quantitativeLUIS CALVILLO Start: 29-80-3810Dzymz count hematocritLUIS JAUREGUIStart: 36-63-7441Kfzknjolmq bloodLUIS JAUREGUIStart: 36-97-7925Fvkrzvuuzup panelLUIS JAUREGUIStart: 11-21-0731Pubvbkf quantitative blood xcpt reagent stripLUIS JAKATHERINEGUIStart: 64-85-1807Tpxpy of urea nitrogen quantitativeSteven C Sullivan Work Phone: Start: 44-85-2083Vliwl count hematocritSteven C Sullivan Work Phone: Start: 11-37-7498Axfncbsphy bloodSteven C Sullivan Work Phone: Start: 39-30-3320Uwejrfoazny panelSteven C Sullivan Work Phone: Start: 07-97-1162Pzgabzq quantitative blood xcpt reagent stripSteven C Sullivan Work Phone: Start: 52-80-5599Uik routine ecg w/least 12 lds w/i&r TARIK JAUREGUIStart: 91-74-6055JCO REPORTLUIS JAUREGUIStart: 00-66-1530MYATH-19 TARIK JAUREGUIStart: 85-35-6388Hal routine ecg w/least 12 lds w/i&rSteven C Sullivan Work Phone: Start: 58-44-5117ZKY REPORTHpf ScanningStart: 25-43-5653GLSDU-Luis E Calvillo Work Phone: Start: 71-53-3568Blwrhzhadcsif metabolic panelMark Muniz Start: 43-31-4890Nzbhonuxoy A1c measurementMark FoxStart: 84-73-8756Ffntyswdan glycosylated o1eKhkm FoxStart: 07-55-2153Rbfrj panelMark FoxStart: 11-27-2019 Lipid panelMark FoxStart: 83-99-0814NOTNEAPAYADQ/Urine Creat RatioMark FoxStart: 70-30-8678Frmn FoxStart: 30-08-2442Juo meds verified w/pt or reMark FoxStart: 93-19-2709Mxlsxskwdtmtx of current medicationsMark FoxStart: 32-83-8800Dkopp metabolic panel calcium totalLergavi Jaracorey hospitalStart: 21-70-1149Dvtvhzak foot examinationLergavi ZamoraStart: 54-35-1691Ako meds verified w/pt or reLeroy SeraStart: 76-85-5177Xdbhcqhbrlbkk of current medicationsMark FoxStart: 11-30-1656Rwjzy of glutamyltrase gammaLergavi Jaracorey hospitalStart: 12-20-8539Egrok metabolic panel calcium totalLergavi Jaracorey hospitalStart: 69-40-0575Zyipn glutamyl transferase measurementMark FoxStart: 24-07-7764Nijxlueshf A1c measurementMark FoxStart: 71-90-3415Cgujdlduzd glycosylated t6aSvdez Schrocorey hospitalStart: 05-28-2019 Doc meds verified w/pt or reMark FoxStart: 66-54-2372Dzakyimxbyjfc of current medicationsMark FoxStart: 18-37-7308Euaoj of prostate specific antigen totalMark FoxStart: 24-56-6532Pzyul count complete automatedMark FoxStart: 05-22-2019 Comprehensive metabolic panelMark FoxStart: 49-27-6035Oatxplgjfxi mean corpuscular volume determinationMark FoxStart: 88-96-2109Ojuqe panelMark Muniz Start: 61-41-4619Awbws panelMark FoxStart: 07-93-3540Buxyigof specific antigen measurementMark FoxStart: 37-48-7241Qgrysaojru, automatedMark FoxStart: 29-24-4550Rixes dip stick/tablet rgnt auto w/o microscopyMark FoxStart: 75-96-2238Utnmfivm foot examinationLergavi ZamoraStart: 43-12-1546Bsa meds verified w/pt or reLeroy SeraStart: 67-40-5072Xoexiwlhblypt of current medicationsMark FoxStart: 73-75-8559Floni of glutamyltrase gammaChase Trudy Start: 53-97-2338Xbuaacqrawank metabolic panelChase TrudyStart: 04-13-2019 Gamma glutamyl transferase measurementMark FoxStart: 27-59-0583Guqmfigksq A1c measurementMark FoxStart: 85-95-8644Trcvgspodj glycosylated s3cLoofk Trudy Start: 17-11-8096MNGPZCUCLRIY/Urine Creat RatioChase TrudyStart: 04-13-2019 Ericka MunizStart: 28-04-6599Kanpaejcmldyj follow-up visitMark FoxStart: 03-29-2019 Doc meds verified w/pt or reChase Scarsoutheast arizona medical centerughStart: 66-03-5372Goimcrnnqnaug of current medicationsMark FoxStart: 28-72-5344Dci b9 lesion mrgn xcp sk tg t/a/l 2.1-3.0 cmCLehigh Valley Health NetworkStart: 04-11-4553Psxjjklh of lesion of skinMark Muniz Start: 98-39-4087Fxqsm closure of wounds of extremitiesMark FoxStart: 03-29-2019 Repair intermediate s/a/t/e 2.6-7.5 cmCLehigh Valley Health Networkart: 41-82-2181Xkxvx of prostate specific antigen totalLergavi Jaracorey hospitalart: 33-99-9864Azhpq count complete automatedLer Marekcorey hospitalStart: 42-81-8843Xonogsubdxbeo metabolic panel Edilberto Jaracorey hospitalStart: 49-04-4301Asnfhimcgwg mean corpuscular volume determinationMark FoxStart: 37-16-9618Ryzujnkzhi A1c measurementMark FoxStart: 84-92-2568Ycccusdfdu glycosylated g4xXynhl Marekcorey hospitalStart: 56-44-5652Vstcz panel Edilberto MarekPresbyterian Hospitalart: 40-24-7060Moosk panelMark FoxStart: 02-27-2019 MICROALBUMIN/Urine Creat RatioLer Marekcorey hospitalStart: 46-39-6653Mufmkdjt specific antigen measurementMark FoxStart: 51-46-7426Srtv FoxStart: 99-27-6455Arx meds verified w/pt or reChase Kaliupland hills healthStart: 21-00-7555Awijctdzaasnx of current medicationsMark FoxStart: 72-45-8315Pjnx Tag removal (SKNTG)Edilberto Zamora Start: 95-33-0630Nzrv FoxStart: 08-21-6834Lbt meds verified w/pt or reMark Muniz Start: 82-96-7208Wcgouczgzyroe of current medicationsMark FoxStart: 01-02-2019 Medical nutrition re-assmt&ivntj indiv ea 15 mLeroy Marekcorey hospitalStart: 12-12-2018 Diabetic foot examinationLer MarekPresbyterian Hospitalart: 54-52-5628Wicyppx measurement, quantitativeMark FoxStart: 36-36-8041Kalekqv quantitative blood xcpt reagent stripLeroy Marekcorey hospitalStart: 91-19-4528Ewrbqgjimj A1c measurementMark FoxStart: 32-22-6113Vvcwaooewz glycosylated x7tAfmji Marekcorey hospitalStart: 30-45-2842Xxkjyofl foot examinationLeroy Marekcorey hospitalStart: 60-34-5081Xzk meds verified w/pt or re Edilberto Marekcorey hospitalStart: 35-57-7630Kznbwcwntfjsx of current medicationsMark Muniz Start: 94-40-8917Dgkcdul nutrition re-assmt&ivntj indiv ea 15 mMark FoxStart: 05-53-1031Mulsj count complete automatedLeroy Schrocorey hospitalStart: 09-17-2018 Erythrocyte mean corpuscular volume determinationMark FoxStart: 09-17-2018 Glucose measurement, quantitativeMark FoxStart: 50-03-4664Ebozzqo quantitative blood xcpt reagent stripMark FoxStart: 49-19-6988Pxkmsprzdl A1c measurementMark FoxStart: 69-95-3194Gkmifotism glycosylated c3gXmyy FoxStart: 11-87-2903Latckpz function panelMark FoxStart: 76-78-7692Jqtxvrk function panelMark FoxStart: 18-58-8625Mtyunjf B12 and FolateLergavi Jaracorey hospitalStart: 72-05-3627Iyqc FoxStart: 92-86-7060Syimf of prostate specific antigen totalLergavi Jaracorey hospitalStart: 05-42-1094Xhifexgmeiqku metabolic panelLeroy Marekcorey hospitalStart: 09-01-2018 Hemoglobin A1c measurementMark FoxStart: 36-68-6729Gtwfrvxhra glycosylated a1c Edilberto Schrocorey hospitalStart: 46-44-4368Eokdq panelLeroy SchroederStart: 84-92-0993Rhnbb panelMark FoxStart: 29-81-1376FJNIRUPVWJQW/Urine Creat RatioLergavi Zamora Start: 81-23-2139Kdrcfvme specific antigen measurementMark FoxStart: 09-01-2018 Ericka FoxStart: 77-67-9133Hgs meds verified w/pt or reLeroy Marekcorey hospitalStart: 58-06-6840Ayrnypbhkiguu of current medicationsMark FoxStart: 26-64-5398Hjkfqux nutrition re-assmt&ivntj indiv ea 15 mLeroy SeraStart: 13-98-8486Rfaxcpya foot examinationLeroy Schrocorey hospitalStart: 51-55-4408Tlo meds verified w/pt or re Edilberto SeraStart: 65-35-5889Tdpzylwilvilh of current medicationsMark Flavio Start: 58-88-7418Bizjiku measurement, quantitativeMark FlavioStart: 06-19-2018 Glucose quantitative blood xcpt reagent stripGuccigavi ZamoraStart: 06-19-2018 Hemoglobin A1c measurementMark Start: 83-90-9829Pyqnpsccyh glycosylated a1c Edilberto SeraStart: 95-19-2390Typejly nutrition re-assmt&ivntj indiv ea 15 m Ericka MunizStart: 26-29-6083Xxkrdcvo foot examinationLergavi MarekbrianStart: 26-91-7977Vmlqgoq measurement, quantitativeMark FlavioStart: 34-70-4735Hdblqzt quantitative blood xcpt reagent stripChase Quickgladysluis miguelStart: 68-12-2450Dtpeqnlbuj A1c measurementMark FlavioStart: 63-23-4808Nrkjhwaenh glycosylated b2eXpcxd AbdelrahmandarleneStart: 74-21-8313VSVONAWHCESO/Urine Creat RatioChase YatesStart: 40-88-8619Zdbf FlavioStart: 30-75-1749Oxz meds verified w/pt or reLeroy Sera Start: 39-89-4524Vgycyudppkdrt of current medicationsMark FoxStart: 02-23-2018 Comprehensive metabolic panelLergavi ZamoraStart: 22-65-8702Elnikllbxh A1c measurementMark FlavioStart: 29-48-3631Uejckehdhi glycosylated a6vHkagbEdilberto Jaraeder Start: 08-38-3743Mksyc panelLergavi ZamoraStart: 75-60-0177Gksca panelEricka Muniz Start: 14-52-8407DZMSMZMCFZGI/Urine Creat RatioEdilberto ZamoraStart: 02-23-2018 Ericka MunizStart: 92-79-6816Rngruws nutrition re-assmt&ivntj indiv ea 15 mChase TrudyStart: 85-45-0324Lsjohjmg foot examinationLergavi ZamoraStart: 98-85-6519Vfw meds verified w/pt or reLeroy SeraStart: 12-13-2017 Documentation of current medicationsMark FoxStart: 01-45-3573Qsqdrjq function panelMark FoxStart: 66-39-4658Wloxuam function panelMark FoxStart: 12-09-2017 Diab manage trn per indivMark FoxStart: 32-87-3392Cixkwpju self-monitoring health educationMark FoxStart: 00-11-8621Pungfet measurement, quantitativeMark FoxStart: 96-44-7044Dbpvepc quantitative blood xcpt reagent stripEdilberto Zamora Start: 55-69-2258Yvnstopifg A1c measurementMark FoxStart: 10-93-0949Twsdeciyzh glycosylated p7nHulekEdilberto Jaracorey hospitalStart: 45-86-9280Bdcq manage trn per indivEdilberto Jaracorey hospitalStart: 20-43-5818Nugupevo self-monitoring health educationMontgomery Muniz Start: 98-75-5884Ymxiuco Medications Verified MIPSLergavi Jaracorey hospitalStart: 36-98-0234Jwuw FoxStart: 52-80-8965Lbvyzmo aminotransferase measurementMark Muniz Start: 12-08-5283Cuhbbjzfn aminotransferase measurementMark WendenStart: 08-25-2017 Basic metabolic panel calcium totalLergavi Jaracorey hospitalStart: 24-43-0081Lxgparpulm A1c measurementMark WendenStart: 39-86-8808Jscjdoofdk glycosylated m3oBdjnl Schrocorey hospitalStart: 06-46-7716Jrghw panelLer Marekcorey hospitalStart: 72-94-4353Fhyng panel Ericka FoxStart: 26-96-8343ZBVBHCLVJOYI/Urine Creat RatioLergavi Jaracorey hospitalStart: 09-42-7778Btprzmykejz alanine amino alt sgptLergavi Willow HillStart: 08-25-2017 Transferase aspartate amino ast sgotCopper Queen Community Hospitalgavi Jaracorey hospitalStart: 43-46-0560Ovxt Muniz Start: 46-01-1421Qept manage trn per indivEdilberto Jaracorey hospitalStart: 08-09-2017 Diabetes self-monitoring health educationMark FoxStart: 09-32-5106Mpanqsyt foot examinationLeroy Marekcorey hospitalStart: 71-07-3293Jluajzz measurement, quantitativeMark FoxStart: 08-33-9279Tkywrgt quantitative blood xcpt reagent stripLergavi Jaracorey hospitalStart: 42-05-9210Zotihgzqtp A1c measurementMark FoxStart: 08-05-2017 Hemoglobin glycosylated p9fZvrtl [facility]y hospitalStart: 86-77-9067EY-DipLeroy Zamora Start: 26-39-0407Sued FlavioStart: 03-93-5249Akf meds verified w/pt or reLeroy Marekcorey hospitalStart: 29-31-2250Yqycxizejqwyz of current medicationsMark FoxStart: 38-73-7727Xklwdvc Medications Verified MIPSLeroy Schrocorey hospitalStart: 04-05-2017 Diabetic foot examinationLer Marekcorey hospitalStnorth [place]lywood: 97-53-1556Fzaw FoxStart: 79-18-9202Zpnjjpv measurement, quantitativeMark WendenStart: 85-38-1733Fcgxgrk quantitative blood xcpt reagent stripEdilberto Jaracorey hospitalStart: 60-97-8360Jcyvlrocaz A1c measurementMark FoxStart: 81-33-5619Lsqnmujtvc glycosylated u9wYlarr Marekcorey hospitalStart: 34-82-9458APCPHZNBDDVR/Urine Creat RatioLergavi Jaracorey hospitalStart: 36-57-7397Uimd FoxStart: 53-51-3661Ekh UA (for Ketones)Edilbertogavi Jaracorey hospitalStart: 97-11-0844Sfsp WendenStart: 05-68-8421Exw meds verified w/pt or reLeroy Sera Start: 34-75-3246Aorovscuugxoe of current medicationsMark WendenStart: 71-30-8260Kx strs tst xers&/or rx cont ecg w/si&rLeroy Marekcorey hospitalStart: 02-17-2017 Electrocardiogram with exercise testMark FoxStart: 42-15-8449Fhcctukwlf spect multiple studiesLer Marekcorey hospitalStart: 47-52-8320Sglfufexfrx injectionLergavi Jaracorey hospitalStart: 29-32-9590Ec54q sestamibiLeroy Marekcorey hospitalStart: 94-25-7572Rjd meds verified w/pt or reLeroy Marekcorey hospitalStart: 33-79-7121Ravicjbpkirwg of current medicationsMark FoxStart: 67-76-8869Yqa routine ecg w/least 12 lds w/i&rLeroy Marekcorey hospitalStart: 98-34-3323Smibzkl measurement, quantitativeMark FoxStart: 41-40-6183Opdomom quantitative blood xcpt reagent stripLergavi Jaracorey hospitalStart: 09-47-0824Nzkgnohyvn A1c measurementMark FoxStart: 96-68-0169Oekygfighz glycosylated y9vAbcui Marekcorey hospitalStart: 09-60-5590Pgvwvvzd foot examinationLer Marekcorey hospitalStart: 69-99-6490Sdp UA (for Ketones)Edilberto Marekcorey hospitalStart: 11-23-2016 Ericka FoxStart: 59-08-9336Ndsyglm aminotransferase measurementMark FoxStart: 14-50-7634Eklyhyyzn aminotransferase measurementMark FoxStart: 09-21-2016 End: 56-52-4153Mohpl metabolic panel calcium totalLeroy MarekederStart: 22-60-2738Xwjwgtjdit A1c measurementMark FoxStart: 83-03-6144Kfjmzhkomw glycosylated y2tHzwjb SchroederStart: 82-58-6982Brebl panelLeroy MarekederStart: 01-00-0698Jddlu panelMark FoxStart: 71-46-5377Pzgsbwryqqq alanine amino alt sgptLergavi SchroederStart: 25-77-1148Ahidanyrnog aspartate amino ast sgotLergavi SchroederStart: 77-75-4278Lkxqr metabolic panel calcium ionizedLeroy Sera Start: 48-36-5917Ifrse chemistryMark FoxStart: 89-32-3433DJJEUNBWIGJP/Urine Creat RatioLergavi Jaracorey hospitalStart: 91-04-8592Lagh FoxStart: 13-79-7439Kohlu brachial pressure indexMark FoxStart: 83-64-7322Wcf-invas physiologic std extremity art 2 levelLeroy MarekederStart: 70-17-1459Kmjua brachial pressure indexMark FoxStart: 90-88-2018Ynrsetrm foot examinationLeroy SchroederStart: 15-47-5082Com-invas physiologic std extremity art 2 levelLergavi SchroederStart: 22-64-7774Cufut of thyroid stimulating hormone tshLeroy MarekederStart: 32-06-5309Znmus of thyroxine totalLeroy SchroederStart: 07-38-1497Wopcr metabolic panel calcium totalLeroy SchroederStart: 25-89-5092Eqfvvjorqg A1c measurementMark FoxStart: 53-98-4105Nxtajzbxzf glycosylated d2xLrntqgavi Zamora Start: 39-95-9459JVAOOZTAZHWD/Urine Creat RatioLergavi MarekederStart: 07-30-2016 Thyroid stimulating hormone measurementMark FoxStart: 76-17-9652Msjqgxyjn measurementMark FoxStart: 65-36-9802Yzad FoxStart: 10-57-5666Uzphv metabolic panel calcium ionizedLeroy MarekederStart: 73-71-3015Mdmdv metabolic panel calcium totalLeroy SchroederStart: 51-41-5288Wvqto chemistryMark FoxStart: 02-08-2078Ith UA (for Ketones)Edilberto MarekederStart: 29-06-0505Faqk FoxStart: 77-22-4510Fnmeztzl foot examinationLeroy SchroederStart: 81-37-8063Ejnvkte aminotransferase measurementMark WendenStart: 54-70-9663Hciiqamse aminotransferase measurementMark FoxStart: 93-13-7018Clgcd metabolic panel calcium totalLeroy Willow HillStart: 64-46-3343Zamksdnbjw A1c measurementAscension Borgess-Pipp HospitalStart: 03-20-2016 Hemoglobin glycosylated e5gWqdsz [place] HillStart: 50-19-0484Hraxe panelLerMyMichigan Medical CenterStart: 73-43-6928Ochkj panelMark WendenStart: 98-86-2258Onwtsqhzgta alanine amino alt sgptLeroy [place]ow HillStart: 81-36-1764Gxnmamnyjph aspartate amino ast sgotLergavi [place] HillStart: 11-53-9603Cgbph metabolic panel calcium totalLerMyMichigan Medical CenterStart: 91-52-9145Yyghhcj measurement, quantitativeAscension Borgess-[facility]ipp Hospital Start: 23-92-9376Kphluskupq A1c measurementAscension Borgess-Pipp HospitalStart: 82-54-4547Dgiithdvgq glycosylated g2lEwvrz [place] HillStart: 11-11-9046Zuywe of thyroid stimulating hormone tshLerMyMichigan Medical CenterStart: 54-13-6609Avial of thyroxine totalLerMyMichigan Medical CenterStart: 58-32-2377Tysjsuc measurement, quantitativeMark FoxStart: 75-21-7795Vvsvwwx quantitative blood xcpt reagent stripLeroy [place] HillStart: 38-76-4903Fvlsmblbjr A1c measurementAscension Borgess-Pipp HospitalStart: 64-06-3141Dbfftzobqd glycosylated b9cQonzuMyMichigan Medical CenterStart: 05-00-6637ZCFHZFDTJXZO/Urine Creat Ratio Edilberto [facility] Hospitalart: 82-07-7364Iuenofy stimulating hormone measurementAscension [facility] Start: 92-74-4599Outfcmoab measurementAscension Borgess-Pipp HospitalStart: 12-49-6278Vsba WendenStart: 11-18-2015 End: 44-84-8805Uimfxsd analysis electroencephalogramLerMyMichigan Medical CenterStart: 91-46-0237Wbjmvtgqrpcqpyqpavpionk procedureMark WendenStart: 98-80-4464Pxvamsrn measurementAscension Borgess-Pipp HospitalStart: 87-71-8874Jicspqrp totalLerEdgewood Surgical Hospitalart: 36-12-4106Xgjetdej foot examinationLerMyMichigan Medical CenterStart: 08-78-0125Kmqgr metabolic panel calcium totalLerMyMichigan Medical CenterStart: 10-58-9572Ejqcrqsaqi A1c measurementAscension Borgess-Pipp HospitalStart: 76-32-6042Pwxftszrca glycosylated c8qVvhurMyMichigan Medical Center Start: 58-84-0731AUQAQJXHESWG/Urine Creat RatioLerMyMichigan Medical CenterStart: 11-03-2015 Ericka FoxStart: 72-36-9790Qwkye of c-peptideLeroy [place]ow HillStart: 92-94-1155Sfbxa metabolic panel calcium totalLerMyMichigan Medical CenterStart: 06-35-9093Ydypqtub measurementMark WendenStart: 57-41-8852Nwbihloq totalLerMyMichigan Medical CenterStart: 96-65-7229Yfmm manage trn per indivLeroy [place]ow HillStart: 19-98-2753Miabiwee self-monitoring health educationMark FoxStart: 46-33-1046Badbppfp foot examinationLerMyMichigan Medical CenterStart: 42-49-0162Lztlcrs measurement, quantitativeMark WendenStart: 94-57-6150Jhoofnv quantitative blood xcpt reagent stripLerMyMichigan Medical CenterStart: 12-51-1026Ygrrmxn C-peptide measurementMark FoxStart: 09-29-2015 Medical nutrition assmt&ivntj indiv each 15 miLeroy [facility]corey hospitalStart: 09-29-2015 Therapeutic prophylactic/dx injection subq/imLeroy [place]ow HillStart: 09-24-2015 Unlisted pulmonary service/procedureLerMyMichigan Medical CenterStart: 26-63-5832Oumkjtch spec ige crude allergen extract eachLerMyMichigan Medical CenterStart: 06-45-2759Elswn of gammaglobulin igeLerMyMichigan Medical CenterStart: 96-67-3263Lzjju count complete auto&auto difrntl wbcLerMyMichigan Medical CenterStart: 17-63-6619Ifyvxamu blood countMark FoxStart: 82-18-4869Wqtcqqohtfv sedimentation rate, non-automatedMark FoxStart: 08-26-2015 Immunoglobulin E measurementMark WendenStart: 03-55-9261Qdjhbwwmrjlhs rate rbc non-automatedLerMyMichigan Medical CenterStart: 42-22-0326Spahjibqc ConsultLerMyMichigan Medical Center Start: 38-02-8124Dcey FoxStart: 72-79-9166Bz strs tst xers&/or rx cont ecg w/si&rLeroy Willow HillStart: 68-74-5787Aqageyczntczcrbac with exercise testMark FoxStart: 85-44-6131Nryxpepqri spect multiple studiesLeroy [facility]corey hospitalStart: 82-49-0348Jfopnikzttt injectionLerMyMichigan Medical CenterStart: 10-42-5011Kw96a noah Casanova SchroederStart: 31-74-0114Qxybhng aminotransferase measurementMark Flavio Start: 91-09-8212Randtsqxe aminotransferase measurementMark FoxStart: 08-04-2015 Basic metabolic panel calcium totalLergavi SchroederStart: 16-56-5214Dioohujtdb A1c measurementMark FoxStart: 20-28-5720Qtwbwqljcn glycosylated f9jQoddq SchroederStart: 00-53-5606Ibqrp panelLergavi SchroederStart: 66-53-2979Dfplq panel Ericka FoxStart: 75-74-3990IPWLGWQITDAA/Urine Creat RatioLergavi SchroederStart: 13-23-6683Euqdvekiicr alanine amino alt sgptEdilberto SchroederStart: 08-04-2015 Transferase aspartate amino ast sgotLergavi [facility] hospitalStart: 39-41-4706Nbeh Flavio Start: 49-74-6192Ihcoj x-rayLergavi [facility] hospitalStart: 04-70-9155Uel routine ecg w/least 12 lds w/i&rLeroy Sera Plan of Treatment DateCare ActivityDetailAuthorStart: 08-05-2025 End: 74-18-9459Scusfvl encounter xzifhbdzf72/26/2026 2:30 PM EST Office Visit [facility] [address] [place] [address] Kimmie Yarbrough MD [address] [place] [address] [facility]Jose [facility]ocrinologyStart: 06-80-9090Zoruc of prostate specific antigen totalPSA totalWest BendITADSecurity [facility] Start: 83-19-0850Yltjh of testosterone freeTotal and free testosterone panel by equilibrium dialysisWest BendITADSecurity [facility] Start: 56-09-4209Etlnk of testosterone totalTotal and free testosterone panel by equilibrium dialysisTrinity Health System [facility] Start: 23-66-1320Dnttnvmxefeny metabolic panelCMP [employer] [facility] Start: 33-93-9150Ruwawpmpsh glycosylated a1cHgb A1c [facility] Start: 05-30-8633Iabfn panelLipid panelLake County Memorial [facility] Start: 04-08-2025 End: 55-46-8475Bemvluv encounter /29/2025 2:10 PM EDT Office Visit [facility] [address] [place] [id number] Kimmie Yarbrough MD [address], [address] [place] [address] ArrivedAMARAMS Otto EndocrinologyComment on above:ArrivedStart: 04-08-2025 End: 88-79-2363Qrpyf metabolic 1998 panel - Serum or PlasmaBasic metabolic panel 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 Expected: 04/08/2025 (Approximate), Ex ana m: 04/08/2026NOKY HealthcareComment on above:Expected: 04/08/2025 (Approximate), Expires: 04/08/2026Start: 04-08-2025 End: 80-69-5609Snefagcp [Mass/volume] in Serum or PlasmaFerritin 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 Expected: 04/08/2025 (Approximate), Expires: 2025NOKY HealthcareComment on above:Expected: 04/08/2025 (Approximate), Expires: 04/08/2026Start: 04-08-2025 End: 28-08-2106Fwtvtpdfxc [Mass/volume] in BloodHemoglobin 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 Expected: 04/08/2025 (Approximate), Expires: 04/08/2026NOKY HealthcareComment on above:Expected: 04/08/2025 (Approximate), Expires: 04/08/2026Start: 04-08-2025 End: 66-80-1916WychaeanxHjtkamcbi 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 Expected: 04/08/2025 (Approximate), Expires: 04/08/2026NOKY HealthcareComment on above:Expected: 04/08/2025 (Approximate), Expires: 04/08/2026Start: 04-08-2025 End: 58-84-3879Vnhmixfl specific Ag [Mass/volume] in Serum or PlasmaPSA 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 Expected: 04/08/2025 (Approximate), Expires: 04/08/2026[facility] Work Phone: Comment on above:Expected: 04/08/2025 (Approximate), Expires: 04/08/2026Start: 04-08-2025 End: 13-68-9015Tjw hormone binding globulinSex hormone binding globulin 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 Expected: 04/08/2025 (Approximate), Expires: 04/08/2026[facility] HealthcareComment on above:Expected: 04/08/2025 (Approximate), Expires: 04/08/2026Start: 04-08-2025 End: 80-95-5723Dkvoehxgwmml [Mass/volume] in Serum or PlasmaTestosterone 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 Expected: 04/08/2025 (Approximate), Expires: 04/08/2026NOKY HealthcareComment on above:Expected: 04/08/2025 (Approximate), Expires: 04/08/2026Start: 34-07-8473Agbbwztyb vaccinationInfluenza Vaccine (#1) [facility] HealthcareStart: 41-00-4845Uzbpogehcwljt metabolic panelCMPBKettering Health [facility] Start: 97-60-9093Wvuyrdwbzr glycosylated a1cHgb A1c [employer] [facility] Start: 75-71-4443Qtqwp panelLipid panelTrinity Health System [facility] Start: 41-66-1990Cbupituwxojcz metabolic panelComp [employer] [facility] Start: 41-50-4155Lhmqzwpvyn glycosylated a1cA1c [employer] [facility] Start: 52-67-3249Pfygv panelLipid panelColgate [employer] [facility] Start: 03-03-6923Svhzp of thyroid stimulating hormone tshTSHBlanAultman Hospital [facility] Start: 47-40-8932Wypdmmovglnnc metabolic panelTrinity Health System [facility] Start: 28-28-3244Nzwnnzwhwagmwu vitamin b-12B12 level [employer] [facility] Start: 90-67-2610Efdikfnwmr glycosylated n8yElsqllqod [employer] [facility] Start: 27-76-6791Iotoe panelLipid profileColgate [employer] [facility] Start: 20-09-5646Bkweaitkgw glycosylated a1cA1c [employer] [facility] Start: 29-17-0323Txvoo of prostate specific antigen totalPSA totalWest BendITADSecurity [facility] Start: 35-93-1108Triwe count complete automatedCBC PLATELET COUNT; AUTOMATEDWest BendITADSecurity [facility] Start: 04-60-3932Zgsoptbraajpu metabolic panelCMP [employer] [facility] Start: 03-61-7482Roiul panelLipid panelWest BendITADSecurity [facility] Start: 87-65-5933Vfxydbyldzjdu metabolic panelCMP (comprehensive metabolic panel)[employer] [facility] Start: 81-94-6079Fumkojxoov glycosylated j0wSZSCWICJTC C5KWwwxjhvxzITADSecurity [facility] Start: 03-77-0437Swpyi panelLipid profileWest BendITADSecurity [facility] Start: 46-48-8331Cxfabnidc vaccinationInfluenza Vaccine (#1)[facility] HealthcareStart: 59-71-5174Iutew of prostate specific antigen total PSA, totalWest BendITADSecurity [facility] Start: 23-96-5594Ztqqq count complete automatedCBC PLATELET COUNT; AUTOMATEDWest BendITADSecurity [facility] Start: 76-58-5089Gbxwvjgnbwhzl metabolic panelCMP [employer] [facility] start: 61-51-3136Xyyzuoy quantitative blood xcpt reagent stripGLUCOSEColgate emploi.us [facility] Start: 13-08-9638Rxysoeqmtp glycosylated l3jYPLRYWLGTW A4GRvudtdhpk [employer] [facility] Start: 05-07-5441Ugffg panelLipid profileColgate [employer] [facility] Start: 44-86-6055Iavubucxqwl alanine amino alt sgptSGPT (ALT)[employer] [facility] Start: hydroxy includes fractions if performedVITAMIN D 25-HYDROXYWest BendITADSecurity [facility] Start: 23-92-9608Mruee of parathormonePTH-INTACT [employer] [facility] Start: 82-15-8609Ffpmsqxodvjgc metabolic panelCMP (comprehensive metabolic panel)[employer] [facility] start: 14-92-7326Svoruaxmmm glycosylated v6hYXFCRIZADN E0CCutegiexuITADSecurity [facility] Start: 42-17-2978Cbnag panelLipid panelWest BendITADSecurity [facility] Start: 20-10-3542B-ray of left ankleANKLE COMPLETE X- RAY 3 VIEWSWest BendITADSecurity [facility] Start: 42-51-0120YN Foot - right WO and W contrast IV [facility] Hospitaltart: 65-90-8843CGH of right foot with contrastMR foot RT wo/w [facility] Hospitaltart: 12-70-6170UW Ankle - right WO and W contrast IVFprovidence st. [facility] CenterStart: 09-94-2971RKD of right ankle with contrastMR ankle RT wo/w [facility] Hospitaltart: 86-33-9087Qndqy of lactateLactic acid serumColgate [employer] [facility] Start: 12-20-8614Hwkxa count complete auto&auto difrntl wbcCBC w diffWest BendITADSecurity [facility] Start: 11-74-3260S-reactive proteinCRPBlanmercy medical center [facility] [employer] [facility] Start: 30-83-0828Xzaypfrerecou metabolic panelCMP [employer] [facility] Start: 42-60-5432IUP of lower extremityMRI ankle and footWest BendITADSecurity [facility] Start: 66-04-9178Jqvahqzrqoyul rate rbc non-automated ESR non-autoWest BendITADSecurity [facility] Start: 01-57-8596Udoxaw scan of lower limb veinsUS venous duplex LE RTBlanchard Valley Health System [facility] Hospitaltart: 11-72-8568LB Lower extremity vein - rightBlanchard Valley Health System [facility] Work Phone: Start: 38-13-2491D-ray of left ankleANKLE COMPLETE X- RAY 3 ShelfFlipWest BendITADSecurity [facility] Start: 12-84-9825F-ray of left footFOOT COMPLETE X-RAY 3 ShelfFlipWest BendITADSecurity [facility] Start: 69-78-0230Ixqgs of prostate specific antigen totalPSA totalWest BendITADSecurity [facility] Start: 40-78-1714Ojhtgzfvbzumx metabolic panelComp [employer]Mon[employer] [facility] Start: 90-95-2262Aotacygaeb glycosylated a1cA1c [employer] [facility] Start: 15-01-2475Akpyk panelLipid panelWest BendTouchmedia Start: 10-42-7712Nbdil of glutamyltrase gammaGAMMA GT MonroeQuaam Start: 93-87-4545Rcoeg count complete automatedCBC PLATELET COUNT; AUTOMATEDWest BendTouchmedia Start: 20-02-1240Amargnadoolnc metabolic panelCMP (comprehensive metabolic panel)[employer]roeQuaam Start: 02-68-1857Ayruvmwtoj glycosylated u1gRIPUHPUXRW E9MWedstistoTouchmedia Start: 34-90-2633Vol bact xcpt urine blood/stool aerobic isolWound culture and sensitivityWest BendTouchmedia Start: 41-76-4159Nnj-scan lxtr art/artl bpgs uni/lmtd studyABI w/ segmental pressures and waveformsWest BendTouchmedia Start: 71-36-9856Zth-invas physiologic std extremity art 2 levelABI w/ segmental pressures and waveformsWest BendTouchmedia Start: 91-96-9527Fhv-invasive physiologic study extremity 3 levlsABI w/ segmental pressures and waveformsWest BendTouchmedia Start: 42-66-0289Juugf X-ray of toeTOES X-RAY 2-3 VIEWS [employer] [facility] Start: 62-73-3413Xdjzf count complete automatedCBC & PLATELET COUNT; [employer] SolutionWest BendTouchmedia Start: 35-58-6808Zlxqqukcwwzlh metabolic panelCMP (comprehensive metabolic panel)[employer] [facility] Start: 39-49-2804Aetfnngawc glycosylated a1cA1c [facility]am Start: 58-30-9562Tgjqd panelLIPID PROFILETrinity Health System [facility] Start: 71-17-6145Nzact of glutamyltrase gammaGAMMA GT [facility] Start: 78-36-1792Bybae metabolic panel calcium total Chem [facility]Prov[facility] Start: 07-20-6194Rbdanwdlka glycosylated c5hHISELKJMDH P5LCblkmzmcgTrinity Health System [facility] Start: 67-37-5225Tcaua count complete automatedCBC PLATELET COUNT; AUTOMATEDTrinity Health System [facility] Start: 65-04-1319Sweldtjepdmcj metabolic panelComp [facility] Start: 44-73-9313Ywphtjwyqg glycosylated a1cA1c [facility] Start: 13-28-7239Mqlad panelLipid panelTrinity Health System [facility] Start: 10-80-5519Erzpw of parathormonePTH-INTACT [facility] [employer] Start: 35-31-4340Vgcnn of phosphorus inorganic Phosphorus, serumTrinity Health System [facility] Start: 51-22-4287Lsxuv count complete automatedCBC PLATELET COUNT; AUTOMATEDTrinity Health System [facility] Start: 31-51-2060Jlhxeangzufhl metabolic panelCMP (comprehensive metabolic panel)[employer] [facility] Start: 75-13-1231QzO6l (Bld) [Mass fraction]HEMOGLOBIN A8RRpkszyxyeTrinity Health System [facility] Start: 45-63-7832Tiiwnvqzpg glycosylated b2aPWGLJAVFDK T8BEqnniesamTrinity Health System [facility] Start: 26-54-5575Qeaosujmbq measurementCreatinLone Peak Hospital, [place]Start: 50-57-8346Ghyhhnymc monitoringPotassium [facility], [place]Start: 41-86-9952Jmzdo of prostate specific antigen totalPSA totalColgate [employer] [facility] Start: 91-58-0579Jgdjkugdwpydp metabolic panelCMP (comprehensive metabolic panel)[employer] start: 53-78-3368MuK4v (Bld) [Mass fraction]HEMOGLOBIN Y5NAnyipbsuxTouchmedia Start: 42-42-6655Jhndwle quantitative blood xcpt reagent stripGLUCOSE 2 HR Post PrandialWest BendTouchmedia start: 13-23-1559HiK5s (Bld) [Mass fraction]HEMOGLOBIN C3SEzjwghnosTouchmedia start: 75-21-9150Rirdpmq function panelLFT (liver function test)[employer] [facility] Start: 80-84-9570Qnleuq Wellness Visit (AWV)Annual Wellness Visit (AWV)[place], [place]Start: 78-27-0809Ziwelqmzz vaccination [facility]: 12-28-2019 End: 19-20-3859Neiaquqy EncounterMTHZ ORComment on above:SHOULDER ARTHROSCOPY ROTATOR CUFF REPAIR, POSSIBLE BICEPS TENDONDESISStart: 12-28-2019 End: 46-97-8208Npftszbl EncounterMTHZ ORComment on above:SHOULDER ARTHROSCOPY ROTATOR CUFF REPAIR, POSSIBLE BICEPS TENDONDESISStart: 94-95-5800Rbnmy metabolic panel calcium totalChem 8Blanmercy medical center [facility] [employer] Platform [facility] Start: 83-21-5539WdB8h (Bld) [Mass fraction]HEMOGLOBIN Z8KRbukkqqyxTouchmedia Start: 13-28-0979Xiyvfyaxzrozn metabolic panelComp [employer] start: 94-97-8186DfE2e (Bld) [Mass fraction]A1c [facility] Start: 14-48-7499Iygdn panelLipid panelWest BendTouchmedia Start: 21-41-6445Obsuu metabolic panel calcium total Chem [facility] [employer] start: 88-40-5416Mggov metabolic panel calcium total Chem [facility] [employer] Platform [facility] Start: 14-74-1455Gtgfo glutamyl transferase [Catalytic activity/Vol]GGTWest BendTouchmedia Start: 96-26-0822FwH4k (Bld) [Mass fraction]HEMOGLOBIN O4GPsxbkhxwpTouchmedia Start: 38-88-3978Olkte of prostate specific antigen totalPSA totalWest BendTouchmedia Start: 10-03-6859Xcwxr count complete automatedCBC & PLATELET COUNT; AUTOMATEDWest BendITADSecurity [facility] Start: 29-35-8736Aqoqugcnzgjuu metabolic panel Comprehensive metabolic panelWest BendTouchmedia Start: 30-04-4394Hgkxs panelLipid panelWest BendITADSecurity [facility] start: 31-56-4001Pymho dip stick/tablet rgnt auto w/o microscopyUrinalysis autoWest BendITADSecurity [facility] Start: 32-82-3332Mh adm prq id subq/im njxs 1 vaccine Administration of single vaccineWest BendTouchmedia Start: 63-95-2770Yembs of glutamyltrase gammaGAMMA GT [employer]Mem[employer] Start: 66-59-1726Cmlufavjpjuja metabolic panelCMP (comprehensive metabolic panel)Indicee start: 38-59-1065Yttnadlxrl A1c/Hemoglobin.total mass fraction (Bld)HEMOGLOBIN F4HChcmatmjlTouchmedia start: 70-26-0240Ogplp of prostate specific antigen totalPSA totalWest BendTouchmedia start: 45-32-5662Uhkco count complete automatedCBC & PLATELET COUNT; AUTOMATEDWest BendTouchmedia start: 60-33-7476Jctabwxdiksqf metabolic panel Comprehensive metabolic panelColgate [employer] start: 52-76-6150Mdsskhwzpe A1c/Hemoglobin.total mass fraction (Bld)Hgb Y8eQnszkowpiTouchmedia start: 22-17-6486Eyvem panelLipid panelWest BendTouchmedia start: 55-18-2436Jcplqyk nutrition re-assmt&ivntj indiv ea 15 mMedical nutrition therapy; re-assessment and intervention, individual, gczh-nj-nmrq with the patient, each 15 minutesWest BendTouchmedia start: 30-69-3915Efrzkcg nutrition re-assmt&ivntj indiv ea 15 mMedical nutrition therapy; re-assessment and intervention, individual, hiba-za-eygh with the patient, each 15 minutesWest BendTouchmedia start: 46-87-1703Bloqkxg mass concGLUCOSEWest BendTouchmedia start: 27-37-1650Qbumkurhmq A1c/Hemoglobin.total mass fraction (Bld)HEMOGLOBIN X4IQqtyhhyxqTouchmedia start: 71-36-8715Xsdkvkf function panelLiver function panelWest BendTouchmedia start: 43-98-0014Jgmromz nutrition re-assmt&ivntj indiv ea 15 mMedical nutrition therapy; re-assessment and intervention, individual, geyr-av-bzbv with the patient, each 15 minutesWest BendTouchmedia start: 36-72-9028Kwekxiq nutrition re-assmt&ivntj indiv ea 15 mMedical nutrition therapy; re-assessment and intervention, individual, bjzm-dl-bumx with the patient, each 15 [facility] Start: 08-39-4892Eytmitx mass concGLUCOSELake County Memorial Hospital - West start: 98-49-4658Ttwifedoep A1c/Hemoglobin.total mass fraction (Bld)HEMOGLOBIN H8GGubwdityaLake County Memorial Hospital [facility] Start: 34-47-5043Qggbtda nutrition re-assmt&ivntj indiv ea 15 mMedical nutrition therapy; re-assessment and intervention, individual, mswz-cr-mjyh with the patient, each 15 minutesL[facility] Start: 76-28-1208Sqelkgl function panelLiver function panelLake County Memorial Hospital [facility] Start: 43-85-0014Duwfnmowp for malignant neoplasm of colonColon cancer screen colonoscopyMurf[place], [place]: 2014 Shingles Vaccine (1 of 2)Shingles Vaccine (1 of 2)[facility]: 12-16-7090Tireeifl screenDiabetes [place], [place]: 11-[place]-1983 DTaP/Tdap/Td vaccine (1 - Tdap)DTaP/Tdap/Td vaccine (1 - Tdap)[facility]: 42-10-2987Hbacd screening for proteinDiabetes: Urine Protein Screening [facility] HealthcareStart: 31-21-1595YUZ screeningHIV [place], [place] Start: 98-72-8867Dszhlhct screeningDiabetes: Retinopathy ScreeningNOMS HealthcareStart: 16-30-9332Hptfv panelLipid [facility] Hospitalart: 79-89-2484Zuciuiwbooys 0-64 years Vaccine (1 of 1 - PPSV23)Pneumococcal 0-64 years Vaccine (1 of 1 - PPSV23)[facility]: 83-08-4778Glljqvykus measurementCreatinine monitoringCent[place], KYStart: 46-79-3869Dkjelcmfri A1c measurementDiabetes: Hemoglobin F2JBIFR HealthcareStart: 41-98-8529Nsttolkdt C screeningHepatitis C screenCent[place], [place]Start: 05-03-1965Medicare Annual Wellness (AWV)Medicare Annual Wellness (AWV)[facility] HealthcareStart: 82-47-6883Ytfohcyaa monitoringPotassium monitoringCenterville, KYStart: 48-30-9250Hgssyyoog for malignant neoplasm of colonNOKY HealthcareInitiate Oxygen Therapy ProtocolInitiate Oxygen Therapy Protocol Respiratory Care Routine Daily until discontinued starting 12/28/2019[place], [place]Comment on above:Daily until discontinued starting 12/28/2019Patient EducationSt. Francis Hospital [facility] Work Phone: Patient referralSt. Francis Hospital Ctr Work Phone: Phase I & II - metered glucosePhase I & II - metered glucose Point of Care Testing Routine As Needed until discontinued starting 12/28/2019[place], KYComment on above:As Needed until discontinued starting 12/28/2019SNORING AND OBESITYThe [facility] [employer] [facility] Immunizations Immunization DateImmunizationNotesCare RldgaedcCvlzcacj35-98-5074YFDJM-42, Moderna, 100mcg/0.5mlWendi [facility] 1848949-07-2298zlhfseuvl A and hepatitis B vaccineWendi [facility] MAD Incubator [facility] 1059208-28-9957gfjhptg, mumps and rubella virus vaccineWendi [facility] 1474426-49-5721Zlllvpcc trivalent influenza vaccine, adjuvanted, preservative freeWendi [facility] Ther[employer]Wave [facility] 1089813-37-3431hjnwgbycd virus vaccine, unspecified formulationKimmie Yarbrough MD Work Phone: [phone] Vazquez StreetOuaqisxtnl61-01-5404GVVKF-70, Moderna, 100mcg/0.5mlMark [facility] 01-325756-29-7454GBQ93Ykty [facility] 38-23438396-95-8616OQPJG-35, Pfizer, 30mcg/0.3mlLeroy [facility] 1398347-53-5201fgtrpbzgo, injectable, quadrivalent, contains preservativeLerSelect Medical Specialty Hospital - [facility] 1073689-00-3122wobwgbuee virus vaccine, unspecified formulationShay Patterson DO Work Phone: [facility] Sports MedicineFjgpnfqqpf81-94-8373cambiaaoe A and hepatitis B vaccineJeremy [facility] 04-864203-92-0979zuttmjhjl B vaccine, adult dosageJeakron children's hospitaly [facility] 04-295043-93-7565ucubai vaccine, liveJeremy [facility] 12384270-67-4393XNBAV-54, Moderna, 100mcg/0.5mlLeroy [facility] 04-061297-98-3514YKUIY-40, Moderna, 100mcg/0.5mlLeroy [facility] 24-83961779-64-7583PYNJH-37, Moderna, 100mcg/0.5mlLeroy [facility] 09-041947-49-6073xwhzeaxhb virus vaccine, unspecified formulation; Translations: [Administration of influenza virus vaccine][facility] 44-51408548-57-1634qpcpvingm, high dose seasonal, preservative- free; Translations: [FLU VACC PRSV FREE INC ANTIG]Edilberto [facility] 1356433-34-3411hwznkfwqe, injectable, quadrivalent, contains preservative; Translations: [FLU VACC 4 FRANCISCO 3 YRS PLUS IM]Edilberto Zamora [facility] 1396216-07-2147gomlxlrrh, seasonal, injectableGucciSelect Medical Specialty Hospital - Canton 1726725-66-9993FURAVWLORVCH ADMIN; Translations: [IMMUNIZATION ADMIN][facility] 1397664-34-2666Yshm NetasqTrinity Health System MAD Incubator [facility] 1273073-89-6307xrlyqysij, seasonal, injectable; Translations: [FLU VACCINE 3 YRS & > IM]EdilbertoBelmontMethodist University HospitalEDP [employer] [place] MAD Incubator [facility] 1374488-51-4407UHKGYOAOCOMY ADMIN; Translations: [IMMUNIZATION ADMIN]EdilbertoAltocomWest BendEDP Biotech [place] MAD Incubator [facility] 1424930-16-7393Mmib NetasqWest BendITADSecurity [facility] 09-812743-28-3881izvupmpbx, seasonal, injectable; Translations: [FLU VACCINE 3 YRS & > IM]Edilberto Sophia GeneticsMethodist University HospitalEDP [facility] [place] MAD Incubator [facility] 09-535414-74-1679KAIHQLKUNHKR ADMIN; Translations: [IMMUNIZATION ADMIN]EdilbertoAltocomWest BendITADSecurity [facility] 09541479-42-1639Gxll NetasqWest BendITADSecurity [facility] 09752065-51-5476ykuzsfkgg, seasonal, injectable; Translations: [FLU VACCINE 3 YRS & > IM]EdilbertoAltocomWest BendITADSecurity [facility] 09-477508-20-1742XXLRVFKBFTRS ADMIN; Translations: [IMMUNIZATION ADMIN]EdilbertoAltocomWest BendITADSecurity [facility] 09-039423-49-7800Dxst Eastidest. john's episcopal hospital south shoreTouchmedia Payers DatePayer CategoryPayerPolicy [id number] [id number] 2021MedicareANTHEM MEDICARE ADVANTAGE [facility] MEDICARE ADVANTAGE [id number] 2020- [address] [place] [id number] 2021Medicare (Managed Care)ANTH MEDICARE ADVANTAGE [id number] [id number] 1.2.840.488380.1.13.239.2.7.3.576[id number] 2.840.1.083921.3.67917-48-1805QaxyvwaJZABHSGDFL CARESOURCE [place] MEDICAID xxxxxxxxxxx 2015- [phone] CLAIMS DEPARTMENT [address] [place], [place] [address]dwginnolrmv 1.2.840.877506.1.13.239.2.7.3.238085.05615-88-5734Nmvybjh [id number] 08.26.830.1.475364.3.579.2.03523-23-3588 [id number] 08.26.830.1.303100.3.57[id number] 2.16.840.1.724128.3.57[id number] 2.16.840.1.616898.3.57[id number] 2.16840.1.101114.3.57[id number] 2.16840.1.484226.3.57[id number] 2.16840.1.589582.3.57[id number] 2.840.1.349626.3.57[id number] 2.0.1.376598.3.57[id number] 2.16840.1.986873.3.57[id number] 2..1.820568.3.57[id number] 2.840.1.124964.3.57[id number] 2.0.1.800344.3.57[id number] 2.840.1.331547.3.57[id number] 2.16840.1.686995.3.579.2.1259 [id number] 2.840.1.128888.[id number] 2.16840.1.058853.3.441 UnknownAnthem /[id number] [id number]88j42s5o9Yxaifcy [id number] 2.16.840.1.6832[id number] 2.16.840.1.4[id number] 2.16.840.1.972223.3.579.2.531 Social History DateTypeDetailFacilityStart: 83-69-7186ChjcvkauzIndicee Start: -2 cups a dayIndicee Start: 12-18-2019 End: 26-34-9975Klbxwyr smoking status NHISCurrent every day smokerCenterville, AZHistory of tobacco useCigarette SmokerCenterville, AZStart: 12-18-2019 End: 76-73-7353Dplgzqipsn smoked current (pack per day) - ReportedCenterville, AZStart: 12-18-2019 End: 19-66-8660Brjwmlq intakeCurrent drinker of alcohol (finding)[place], KYStart: 90-88-6965Yihwkta Rmiffqm2U WEEKLYCenterville, KYStart: 26-57-4434Dko Assigned At BirthNot on fileCenterville, KYExposure to SARS-CoV-2 (event)Unable to assessCenterville, AZStart: 71-33-2955Crsxyer use and exposureNever usedCenterville, AZExposure to SARS-CoV-2 (event)Not sureMurfreesboro, KYStart: *TobaccoIndicee Start: 04-01-2022 End: 96-78-2637Trhzkwj smoking status NHISSmoker (finding)[facility] Hospitaltart: 13-15-1718Mjr Assigned At UC Medical CenterTobacco smoking statusNo Smoking Status EnteredOur Lady of Mercy Hospitaltart: 12-27-2022 End: 61-54-6491Ffl Assigned At [facility] Hospitaltart: 33-89-3117Tosgboj Uoihmac18-75 cigs a dayNOKY HealthcareStart: 69-94-6170Tsooivq Comment3-4 drinks 4+ times a week. Caffine intake: 2-3 cups per dayLDS HOSPITAL HealthcareStart: /2 [facility] kingwoodIndicee Start: or 4 per [employer] Start: -3 cups a dayIndicee Start: /4 Creww Start: -2 per [employer] Start: 07-20-2024 End: 42-12-8886MkhEkuu (finding)[facility] Medical Equipment Procedure CodeEquipment CodeEquipment Original TextEquipment IdentifierDates [place] Sut Corkscrew Biocomposite [id number]: 27-16-3446[place] Suture Swivelock 4.75x19.1 Biocomposite Min [id number]: 86-37-3315Bohviu Endoscopic Bicep [id number]_impStart: 12-28-2019 Clinical Notes 04-14-2022 to 04-08-2025 Note Date & VkfxOzvhMceecoqz69-74-6921 History of Present illness Narrative* Kimmie Yarbrough [...] 4 months (around 08/08/2025). documented in this encounterFreeman Orthopaedics & Sports MedicineFjeblwguol19-06-0059 Procedure [facility]PROM[facility] [place] [address] [place], [place] [address] Pulmonary Function Signed Patient: Geremias Melchor MR#: [id number] : 1965 Date of Service:0 07/19/24 Age/Sex: 58 / M ADM Date: 5 Loc: RT Room: Type: [facility] Attending Dr: Ayanna Brooks OIL AND GAS EXPLORATION TECHNICIAN-C Copies to: MD Ericka Albert MD, OIL AND GAS EXPLORATION TECHNICIAN-C~ Pulmonary Function Test Complete pulmonary function [...] Carlos Ware MD 07/19/241752 Signed By: 07/19/241753 [facility]05-25-2024 Hospital Discharge instructions Additional Instructions Sutures out in 7 to 10 daysBl[facility]ard Valley Health [facility] Work Phone: [phone] 171-502301-30-2024 Telephone encounter Note* Telephone Encounter - Shon Esa - 08/09/2023 9:21 AM EST Patient called stating he fell in the bathroom and has a Q-tip jammed in his ear that will not comeout. Per Kaur patient needs to come to [place] today at 2:30 PM. Patient states he has another appointment and does not think that will work for him. He states he will be calling his other doctor to coordinate. [facility] Sports MedicineLchmsdngjy57-32-0479 Miscellaneous Notes* Telephone Encounter - Shon Esa - 08/09/2023 9:21 AM EST Patient called stating he fell in the bathroom and has a Q-tip jammed in his ear that will not comeout. Per Kaur patient needs to come to [place] today at 2:30 PM. Patient states he has another appointment and does not think that will work for him. He states he will be calling his other doctor to coordinate. documented in this encounterFreeman Orthopaedics & Sports MedicineMnlqiblkpc99-19-4077 NotePROCEDURE: XR ANKLE RT MIN 3 VIEWS, [...] Electronically authenticated by: SASHA FLAHERTY Date: 2022-07-28 16:42[facility]01-18-2023 NotePROCEDURE: XR ANKLE RT MIN 3 VIEWS, [...] Electronically authenticated by: SASHA FLAHERTY Date: 2022-07-28 16:42[facility]12-15-2022 NotePROCEDURE: XR ANKLE RT MIN 3 [...] Electronically authenticated by: TESS JHAVERI Date: 2022-06-24 06:[facility]12-15-2022 NotePROCEDURE: XR ANKLE RT MIN 3 VIEWS, [...] Electronically authenticated by: TESS JHAVERI Date: 2022-06-24 06:[facility]10-26-2022 Progress note Author Fariha Novak [facility] May 05, 2022 2:50pmNote Date/TimeOct2021 2:50pmCurwens[place] [address] Wound Center Provider Note Signed Patient: Geremias Melchor MR#: [id number] : 1965 Acct:[id number] Age/Sex: 56 / M Copies to: NON STAFF Fariha Novak APRN~ HPI Date of Visit Date of Visit: Date of Service: 05/05/2022 Time of Service: 14:47 Narrative HPI: 04/14/22 Geremias is a 56-year-old male presenting to [facility] wound care program for an [...] is not per se happy with his chief wellness officer in [place] and therefore I did give him the name of a local chief wellness officer who could address his concerns with Charcot [...] wound start?: March 2022 Mode of Arrival/ Trader: Personal vehicle Lives with:: Alone Appetite Description: Within Normal Limits Who helps w/ dressing change?: Self Smoking Status: Current every day smoker [facility] Vaccinated for COVID-19?: Yes Medical History (Updated [...] Appearance: Beefy Red, Epithelial Tissue or Bridge, [place] and Yellow Percent of Wound Bed Granulated/Red: [...] <Electronically signed by RADHA Novak> 05/05/22 1450 [facility] Work Phone: 1(600) 894-559510-05-2022 Progress note Author Fariha Novak [facility] April 14, 2022 2:46pmNote Date/TimeOct2021 2:46pmCurwens[place] [address] Wound Center Provider Note Signed Patient: Geremias Melchor MR#: [id number] : 1965 Acct:[id number] Age/Sex: 56 / M Copies to: NON STAFF Fariha Novak APRN~ HPI Date of Visit Date of Visit: Date of Service: 04/14/2022 Time of Service: 14:37 Narrative HPI: 04/14/22 Geremias is a 56-year-old male presenting to [facility] wound care program for an [...] is not per se happy with his chief wellness officer in [place] and therefore I did give him the name of a local chief wellness officer who could address his concerns with Charcot [...] wound start?: March 2022 Mode of Arrival/ Trader: Personal vehicle Lives with:: Alone Appetite Description: [...] w/o penetration to deeper layers Bed Appearance: [place] and Yellow Percent of Wound Bed Granulated/Red: 90 Percent of Devitalized: 10 Length (cm): 0.5 Width (cm): 0.6 Depth (cm): 0.1 CM Sq: 0.300 Surrounding Tissue Appearance: Callous Surrounding Tissue Temp: Warm Drainage Amount: Small Drainage Description: Serosanguineous Drainage Odor: No Odor Left Plantar Great Toe: Type: Diabetic Ulcer Diabetic Ulcer Grading: Superficial ulcer of skin w/o penetration to deeper layers Bed Appearance: [place] and Yellow Percent of Wound Bed Granulated/Red: 50 Percent of Devitalized: 50 Length (cm): 2.3 Width (cm): 1.5 Depth (cm): 0.1 CM Sq: 3.450 Surrounding Tissue Appearance: Callous Surrounding Tissue Temp: Warm Drainage Amount: Small Drainage Description: Serosanguineous Drainage Odor: No Odor Right Plantar Great Toe: Type: Diabetic Ulcer Diabetic Ulcer Grading: Superficial ulcer of skin w/o penetration to deeper layers Bed Appearance: [place] and Yellow Percent of Wound Bed Granulated/Red: 10 Percent of Devitalized: 90 Length (cm): 2.1 Width (cm): 1.1 Depth (cm): 0.1 CM Sq: 2.310 Surrounding Tissue Appearance: Callous Surrounding Tissue Temp: Warm Drainage Amount: Small Drainage Description: Serosanguineous Drainage Odor: No Odor Right Posterior Heel: Type: Diabetic Ulcer Diabetic Ulcer Grading: Superficial ulcer of skin w/o penetration to deeper layers Bed Appearance: [place] and Yellow Percent of Wound Bed Granulated/Red: [...] 1437 Signed By: <Electronically signed by RADHA Nvoak> 04/14/22 1446 [facility] Work Phone: Evaluation + Plan note No data available for this section [facility] System[facility] noteNo assessment information available [facility] Work Phone: Evaluation note* Diagnosis Onset Date Resolution Status Diabetic foot ulcer acuteDiabeteschronicHyperlipidemiachronicNeuropathychronicTobacco usechronic [facility] Work Phone: Evaluation note* Diagnosis Onset Date Resolution Status Diabetes chronicDiabetic foot ulcerchronicHyperlipidemiachronicNeuropathychronicTobacco usechronic [facility] Work Phone: Evaluation note* Diagnosis Onset Date Resolution Status Diabetes chronicHyperlipidemiachronicNeuropathychronicTobacco usechronicDiabetic foot ulcerresolved [facility] Work Phone: Evaluation note* Diagnosis 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 Low libido Encounter for dietary consultation Class 1 obesity due to excess calories without serious comorbidity with body mass index (BMI) of 34.0 to 34.9 in adult documented in this encounter [facility] HealthcareHospital Discharge instructions Additional Instructions Return for worsening symptoms Follow-up with wound care and podiatry or [facility]oBl[facility] Work Phone: Hospital Discharge instructions No data available for this section [facility] SystemH[facility] Discharge instructions Additional Instructions Continue good wound care until completely healed Follow-up with family doctor as neededBlanchard Valley Health System [facility] Work Phone: Progress note Author Fariha Novak [facility] May 27, 2022 2:46pmNote Date/TimeNovember 2021 2:46pmCurw[place] [address] Wound Center Provider Note Signed Patient: Geremias Melchor MR#: [id number] : 1965 Acct:[id number] Age/Sex: 56 / M Copies to: NON STAFF Fariha Novak APRN~ HPI Date of Visit Date of Visit: Date of Service: 05/27/2022 Time of Service: 14:43 Narrative HPI: 04/14/22 Geremias is a 56-year-old male presenting to [facility] wound care program for an [...] is not per se happy with his chief wellness officer in [place] and therefore I did give him the name of a local chief wellness officer who could address his concerns with Charcot [...] wound start?: March 2022 Mode of Arrival/ Trader: Personal vehicle Lives with:: Alone Appetite Description: Within Normal Limits Who helps w/ dressing change?: Self Smoking Status: Current every day smoker [facility] Vaccinated for COVID-19?: Yes Medical History (Updated [...] <Electronically signed by RADHA Novak> 05/27/22 1446 [facility] Work Phone: Progress note No data available for this section [facility] Summary Purpose Family History No Family History Records Found Relationship Condition Age at Onset Recorded Date/T shannan family member Diabetes mellitus Unknown Advance Directives No Advanced Directives Records FoundDocuments on File TypeDate RecordedPatient RepresentativeExplanationAdvance Directives and Living WillPower of AttorneyTypeDate RecordedPatient RepresentativeExplanationAdvance Directives and Living WillPower of AttorneyTypeDate RecordedPatient RepresentativeExplanationACP-Advance DirectiveACP-Power of Branch Service Representative Advance Directive Response Recorded Date/ Time [...] for any questions regarding your surgery. Call [phone] forurgent questions after 5PM until 8AM 10. [...] MRI SHOULDER RIGHT WO CONTRAST Mignon Townsend, DRILL PRESS SET UP OPERATOR RADIAL - SUBSCRIPTION CLERK [address] [place] [address] StatusReasonSpecialtyDiagnoses / ProceduresReferred By ContactReferred To ContactOpenRadiology Diagnoses Right knee pain, unspecified chronicity Procedures MRI KNEE RIGHT WO CONTRAST Mignon Townsend, DRILL PRESS SET UP OPERATOR RADIAL - SUBSCRIPTION CLERK [address] [place] [address] Chief Complaint and Reason for Visit Chief [...] 19, 2024 5: 53pm Ref: Dr. Brooks, [facility] August 14 3:04pm Additional Source Comments (unrecognized sect ion and content) No Status Records FoundNo Status Records FoundNo Status Records FoundNo Status Records FoundNo Status Records FoundNo Status Records FoundNo Status Records FoundNo Status Records Found INFORMATION SOURCE (unrecogn ized section and content) DATE CREATED AUTHOR 11/15/2018 [facility] DATE CREATED AUTHOR AUTHOR'S ORGANIZ ATION 03/28/2020 [facility] DATE CREATED AUTHOR AUTHOR'S ORGANIZ ATION 06/21/2020 [facility] DATE CREATED AUTHOR AUTHOR'S ORGANIZ ATION 2022 [facility] DATE CREATED AUTHOR AUTHOR'S ORGANIZ ATION 06/18/2023 [facility] DATE CREATED AUTHOR AUTHOR'S ORGANIZ ATION 11/29/2024 [facility] [facility] DATE CREATED AUTHOR AUTHOR'S ORGANIZ ATION 12/22/2024 [facility] DATE CREATED AUTHOR AUTHOR'S ORGANIZ ATION 04/14/2025 [facility] [place] Reason for Visit (unrecogniz ed section and content) StatusReasonSpecialtyDiagnoses / ProceduresReferred By ContactReferred To Contact Diagnoses Unspecified rotator cuff tear or rupture of right shoulder, not specified as traumatic RIGHT SHOULDER ROTATOR CUFF TEAR Procedures CO SHLDR ARTHROSCOP,SURG,W/ROTAT CUFF REPR SHOULDER ARTHROSCOPY ROTATOR CUFF REPAIR, POSSIBLE BICEPS TENDONDESIS Tess Escalona MD [address] [place] [address] [facility] StatusReasonSpecialtyDiagnoses / ProceduresReferred By ContactReferred To ContactClosedRadiology Diagnoses Pain in right shoulder Procedures MRI-UPPER EXT JNT WO CONT Tess Escalona MD [address] [facility] [address] [place] [address] [facility] [address] [place] [address] StatusReasonSpecialtyDiagnoses / ProceduresReferred By ContactReferred To ContactClosedRadiology Diagnoses Pain in right knee Procedures HC MRI LOWER EXTREM JT, W/O CONTRAST Mignon Townsend, DRILL PRESS SET UP OPERATOR RADIAL - SUBSCRIPTION CLERK [address] [place] [address] [facility] [address] [place] [address] ReasonCommentsTesticular Hypofunction Care Teams (unrecognized sec tion [...] Han, [address] [place] [address] PCP - Daniel WANG12/09/22 [place] [address] [place] [address] [address] [place] [phone] PCP - [facility]12/27/22 Team Status: Active Member Role Status Dates Ericka Muniz MD Primary Care Provider Active Team Status: Inactive Member Role Status Dates Mark Upton APRN Emergency Provider Active Start: December 03, 2023 End: December 03, 2023[facility] Care ProviderActiveStart: December 03, 2023 End: [...] DateEnd Date Jignesh Muniz NP PCP - [facility]12/27/22Team MemberRelationshipSpecialtyStart DateEnd Date Jignesh Muniz TRUE Ontiveros [...] BE BASED ON THE PRIMARY CLINICAL RECORDS. [employer] [facility]. provides no warranty or guarantee of the accuracy or completeness of information in this document.
== END 2025-05-22 10:52 | disposition home or self-care (01) ==
LOC: RAD 10:54
PROVIDERS: Visit Provider Podiatrist Foot & Ankle Surgery
DX: L97.529 Non-pressure chronic ulcer of other part of left foot with unspecified severity (principal); L97.519 Non-pressure chronic ulcer of other part of right foot with unspecified severity
CPT/HCPCS: 73630

== ENCOUNTER 2025-05-22 11:50 | Outpatient (OUT) | payer MEDICARE, MEDICAID, SELFPAY ==
--- OUTSIDE RECORDS SUMMARY | 2025-05-22 11:53 | XMS_ITS | Clinical Summary ---
Author Organization [facility] Address [address], [address] [place] [address] Care Team Providers Care Sand Slinger Name Role Phone Manfred Muniz MD Primary Care Provider [phone] Allergies No known active allergies Medications MedicationSigDispense QuantityRefillsLast FilledStart DateEnd DateStatus furosemide (LASIX) 20 MG tablet Take 20 mg by mouth dailyActive gabapentin (NEURONTIN) 800 MG tablet Take 800 mg by mouth 3 times daily.Active metFORMIN (GLUCOPHAGE) 500 MG tablet Take 500 mg by mouth three times dailyActive Cyanocobalamin (VITAMIN B-12) 5000 MCG TBDP Take by mouth dailyActive [place]-3 Fatty Acids (FISH OIL) 1200 MG CAPS [...] InformationValueDate RecordedSex Assigned at BirthNot on fileLegal ZsiWdts5912/17/2019 8:42 AM EDT Gender IdentityNot on fileSexual OrientationNot on file Last Filed Vital Signs Vital SignReadingTime TakenCommentsBlood Opauglwr453/8806 2:30 PM EDT Eddfd5388 2:30 PM IFSIfcqyrqyphw20 ??C (98.6 ??F)12/28/2019 2:30 PM EDT Respiratory Ttfb294112/28/2019 2:30 PM EDTOxygen Gedsigaiwr41%12/28/2019 2:30 PM EDTInhaled Oxygen Concentration--Iakdho121.5 kg (248 lb)12/28/2019 8:19 AM EDT Hefjgc729.9 cm (6')12/28/2019 8:19 AM EDTBody Mass Index33.6306 8:19 AM EDT Plan of Treatment Not on file Medical Devices ImplantedTypeAreaManufacturerDevice IdentifierShelf Expiration DateModel / Serial / LotAnchor Sut Corkscrew Biocomposite 5.5mm Implanted:Qty: 1 on 12/28/2019 [facility]FastenerRight: ShoulderARTHREX [id number] / / [id number] Suture Swivelock 4.75x19.1 Biocomposite Min 5ea Implanted:Qty: 1 on 12/28/2019 by [facility] HospitalFastenerRight: ShoulderARTHREX INC-[id number] / / [id number] Endoscopic Bicep 2.6x12mm Implanted:Qty: 1 on 12/28/2019 by [facility]: ShoulderARTHREX INC-[id number] / / [id number] Insurance Care Teams Team MemberRelationshipSpecialtyStart DateEnd Date Manfred Muniz MD [address] [place] [address] PCP - GeneralInternal Medicine12/21/19
--- OUTSIDE RECORDS SUMMARY | 2025-05-22 11:53 | XMS_ITS | CCD ---
Author Organization Unknown Care Team Providers Care Presser And Shaper Knitted Goods Name Role Phone Unavailable Primary Care Provider Unavailabl e Unavailable Chronic Care Management Unavaila ble Summary Purpose DataExchange Insurance Providers Payer name Policy type / Coverage type Covered green party ID Effective Begin Date Effective End Date [facility] [id number] Unknown Unknown Family History Family History data not found Medication Administered No Medication Administered data Reason For Visit No Reason For Visit data Medical Equipment No Medical Equipment data Advance Directives No Advance Directive data
--- OUTSIDE RECORDS SUMMARY | 2025-05-22 11:53 | XMS_ITS | Clinical Summary ---
Author Organization [facility] Address [address] [place] [address] Care Team Providers Care Bulk Station Agent Name Role Phone Manfred Nuñez MD Primary Care Provider + Allergies No known active allergies Medications MedicationSigDispense QuantityRefillsLast FilledStart DateEnd DateStatus ALPRAZolam (XANAX) 1 MG tablet Take 1 mg by mouth 2 (two) times a day as needed for anxiety. 2 tabs (2mg) qAM, 1 tab qPMActive nebivolol (BYSTOLIC) 10 MG tablet Take 10 mg by mouth daily.Active Active Problems ProblemNoted DateDiagnosed AxkgVxkhlwkuqnbk80/21/2015 Assessment & Plan (11/29/2014 11:42 AM EDT): Recent diagnosis, started bystolic 4-5 days prior to admission -continue bystolic. Follow up with primary care in 1 week. Mcizdgv2711/28/2014 Assessment & Plan (11/29/2014 11:43 AM EDT): Chronic. 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 Resolved Problems ProblemNoted DateDiagnosed DateResolved DateDVT ozkjzirzrku28 Family History Medical HistoryRelationCommentsHearing lossMaternal GrandfatherDiabetesPaternal UncleRelationStatusCommentsMaternal GrandfatherPaternal Uncle Social History Tobacco UseTypesPacks/DayYears UsedDateSmoking Tobacco: Every TixRkaunvwwck334 Tobacco Cessation:Ready to Q uit: No Alcohol UseStandard Drinks/WeekCommentsYes0 (1 standard drink = 0.6 oz pure alcohol)daily: 2-3 rums per daySex and Gender InformationValueDate RecordedSex Assigned at BirthNot on fileLegal YozRksp2111/28/2013 1:53 PM EDTGender Identity Not on fileSexual OrientationNot on file Last Filed Vital Signs Vital SignReadingTime TakenCommentsBlood Autffvec246/8311/29/2014 11:26 AM EDT Adciv457811/29/2014 11:26 AM DDCNvkrxtluwsx03.4 ??C (97.6 ??F)11/29/2014 11:26 AM EDTRespiratory Bihd063711/29/2014 11:26 AM EDTOxygen Jvokcfyqzc09%11/29/2014 11:26 AM EDTInhaled Oxygen Concentration--Rocmmq473 kg (242 lb 8.1 oz)11/28/2014 1:05 PM VDZPeribb942.9 cm (6')11/28/2014 1:05 PM EDTBody Mass Index32.8911/28/2014 1:05 PM EDT Plan of Treatment Not on file Insurance Advance Directives For more information, please contact: [phone] * Full Code (Latest Code Status on File) Date ActivatedDate InactivatedComments11/28/2014 7:59 PM11/29/2014 2:53 PM Care Teams Team MemberRelationshipSpecialtyStart DateEnd Date Manfred Nuñez MD [address] [place] [address] PCP - GeneralFamily Medicine11/28/14
--- OUTSIDE RECORDS SUMMARY | 2025-05-22 11:54 | XMS_ITS | Clinical Summary ---
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); Low libido; Encounter for dietary consultation; Class 1 obesity due to excess calories without serious comorbidity with body mass index (BMI) of 34.0 to 34.9 in adult04/08/2025amboo flowsheet [facility] [address] [place] [address] Kimmie Yarbrough MD from Last 3 Months [...] Last Filed Vital Signs Vital SignReadingTime TakenCommentsBlood Wxggxixq638/7810 12:00 PM EDT Kieya722804/08/2025 2:02 PM EDTTemperature--Respiratory Msms858504/08/2025 2:02 PM EDTOxygen Xcovhhizfl73%04/08/2025 2:02 PM EDTInhaled Oxygen Concentration-- Biemgp989 kg (249 lb)04/08/2025 2:02 PM UJOUggawm170.3 cm (5' 11 )04/08/2025 2:02 PM EDTBody Mass Index34.7304/08/2025 2:02 PM EDT Plan of Treatment DateTypeDepartmentCare Team (Latest Contact Info)Rcmkkcrjdan31/07/2026 2:20 PM ESTOffice Visit [facility] [address] [place] [address] Cinthia Magana PA [address] [place] [phone] 08/05/2025 2:30 PM ESTOffice Visit [facility] [address] [place] [phone] Kimmie Yarbrough MD [address] [place] [address] Health MaintenanceDue DateLast DoneCommentsCT Twacoxfhqemn51/03/1965Colonoscopy 1964Colorectal Cancer Ukxtntnhy80/03/1965FIT-DNA1964FIT1964 FOBT1964 2476Ytplrjvbatonc79/03/1965COVID-19 Vaccine ( season) , 10/14/2020, 09/12/2020Influenza Vaccine (#1)2025 05/08/2024, 04/28/2022, 04/30/2021neumococcal Vaccine: Pediatrics (0 to 5 Years) and At-Risk Patients (6 to 64 Years)Aged OutNo longer eligible based on patient's age to complete this topic Insurance Care Teams Team MemberRelationshipSpecialtyStart DateEnd Jignesh Muniz, LUSTER REPAIRER PCP - GeneralFamily Medicine12/27/22
--- OUTSIDE RECORDS SUMMARY | 2025-05-22 12:00 | XMS_ITS | CCD ---
Author Organization [facility] Inform ion Partnership [facility] Care Team Providers Care Circuit Recorder Name Role Phone LENKA ROQUE Attending Unavailable [...] Ericka Shah Primary Care Physician Unavailab solomon [facility], Franky P Primary Care Physician Unavai lable Dyana, Franky P Primary Care Physician Unavai lable Dyana, Franky P Primary Care Physician Unavai labsolomon Zamora, Edilberto L Primary Care Physician Unavai labsolomon Zamora, Edilberto L Primary Care Physician Unavai corinne Muniz, Ericka Shah Primary Care Physician Unavailab solomon Dyana, Franky P Primary Care Physician Unavai lable [facility], Franky P Primary Care Physician Unavai lable [facility], Franky Yu Primary Care Physician Unavai lable NON STAFF Primary Care Provider UnavailSOLE Short Emergency Provider RADHA Novak Attending Provider [facility], CHERYL Yu Attending Provider NON STAFF Primary Care Provider UnavailSOLE Short Emergency Provider [phone] [facility], CHERYL Yu Attending Provider RADHA Novak [facility]ending [facility] RADHA Novak Attending Provider Edilberto [...] Provider MD Ericka Muniz Primary Care Provider [phone] Gregg, MECHANIC SENIOR- Missy Galan Emergency Provider Ericka Muniz Primary [...] sources)Platelet Aggregation Inhibitor, Nonsteroidal Anti-inflammatory Drug Start: 53-41-9156yvhx 1 capsule by mouth once dailyAspirin 81 mg Capsule Active 81 MG PO Daily April 13, 2022 11:00pmASPIRIN 81 PO ActiveASPIRIN 81 PO Aspirin 81 Activetake 1 tablet by mouth once dailytake 1 tablet (81 mg) by oral route once dailyASPIRIN 81 PO Aspirin 81 0 Activeatorvastatin 20 mg oral tablet (20 sources)HMG-CoA Reductase InhibitorStart: 95-69-4386kqgd 1 tablet by mouth once dailyatorvastatin (Lipitor) 20 MG tablet Take 20 mg by mouth Daily 03/13/2025 ActiveStart: 25-06-9268pcyc 1 tablet by mouth once dailytake 1 tablet (20 mg) by oral route once dailyStart: 24-01-3976bxiv 1 tablet by mouth once dailytake 1 tablet (20 mg) by oral route once dailyStart: 71-61-0114qfqd 1 tablet by mouth once dailyAtorvastatin 20 mg tablet Active 20 MG PO Daily August 14, 2024 12:00amStart: 42-49-1333gcia 1 tablet by mouth once dailytake 1 tablet (20 mg) by oral route once dailyStart: 04-14-2022 End: 56-95-6382zmsp 2 tablets by mouth once daily at bedtimeAtorvastatin 10 mg Tablet Discontinued 20 MG PO Daily at bedtime April 13, 2022 11:00pm August 14, 2024 3:16pmStart: 48-07-1728vzsg 20 mg by mouth once daily at bedtime Atorvastatin Active 20 MG PO Daily at bedtime April 14, 2022 12:00amStart: 08-53-3109pogy 10 mg by mouth once daily at bedtimeAtorvastatin Active 10 MG PO Daily at bedtime April 14, 2022 12:00amStart: 45-17-4368fifw 1 tablet by mouth once daily at bedtimeatorvastatin 10 mg oral tablet 09/03/2021 TAKE ONE TABLET BY MOUTH ONCE DAILY AT BEDTIMEStart: 52-60-7994dnuf 1 tablet by mouth once daily at bedtimeatorvastatin 10 mg oral tablet 04/23/2020 TAKE ONE TABLET BY MOUTH ONCE DAILY AT BEDTIMEStart: 82-78-2813hbug 1 tablet by mouth once daily at bedtimeatorvastatin 10 mg oral tablet 08/30/2018 TAKE ONE TABLET BY MOUTH ONCE DAILY AT BEDTIMEStart: 06-03-2015 End: 49-87-9551curp 1 tablet by mouth once daily at bedtimetake 1 tablet (10 mg) by oral route once daily at bedtimecalcium chloride 0.0014 meq/ml / potassium chloride 0.004 meq/ml / sodium chloride 0.103 meq/ml / sodium lactate 0.028 meq/ml injectable solution (1 source)Start: 20-22-5437aulwhaqt ringers infusion2 ml fentaNYL 0.05 mg/ml injection (2 sources)Opioid AgonistStart: 48-21-6479hgzeuDPP (SUBLIMAZE) injection 50 mcg Start: 18-76-9082nnokzIBK (SUBLIMAZE) injection 25 mcg30 actuat fluticasone furoate 0.1 mg/actuat / umeclidinium 0.0625 mg/actuat / vilanterol 0.025 mg/ac tuat dry powder inhaler (3 sources)Anticholinergic, Corticosteroid, beta2-Adrenergic AgonistStart: 69-36-4252ikuv 1 puff(s) by inhalation once dailyTrelegy Ellipta 100-62.5-25 MCG/ACT aerosol powder INHALE 1 PUFF ONCE DAILY 11/12/2024 ActiveStart: 30-04-1427Gkpnznuehia-Umeclidin-Vilanter (Trelegy Ellipta) 100-62.5-25 mcg blister with device Active 1 INH INHALATION Daily 60 August 14, 2024 12:00am gabapentin 800 mg oral tablet (20 sources)Anti-epileptic AgentStart: 11-30-2024 End: 53-19-5178gdov 1 tablet by mouth three times dailyTAKE 1 TABLET BY MOUTH THREE TIMES DAILYStart: 11-30-2021 End: 25-97-3657oqwn 1 tablet by mouth three times dailyGabapentin 800 mg Tablet Active 800 MG PO Three times daily April 13, 2022 11:00pmStart: 08-24-2021 End: 81-65-7620dkqv 1 tablet by mouth three times dailygabapentin 800 mg tablet 08/24/2021 09/23/2021 TAKE 1 TABLET BY MOUTH THREE TIMES DAILYStart: 08-11-2020 End: 93-86-5709hqoc 1 tablet by mouth three times dailygabapentin 800 mg oral tablet 12/23/2020 06/21/2021 TAKE 1 TABLET BY MOUTH THREE TIMES DAILYStart: 07-07-2020 End: 23-21-5427msgq 1 tablet by mouth three times dailygabapentin 800 mg oral tablet 07/07/2020 08/06/2020 TAKE 1 TABLET BY MOUTH THREE TIMES DAILYStart: 05-15-2020 End: 58-80-9162zgyy 1 tablet by mouth three times dailygabapentin 800 mg oral tablet 05/15/2020 06/14/2020 TAKE 1 TABLET BY MOUTH THREE TIMES DAILYStart: 24-59-4691ymei 1 tablet by mouth three times dailygabapentin 800 mg oral tablet 08/13/2019 TAKE 1 TABLET BY MOUTH THREE TIMES DAILYStart: 06-03-2017 End: 94-19-3932nely 1 tablet by mouth three times dailyTAKE ONE TABLET BY MOUTH THREE TIMES DAILYStart: 06-03-2017 End: 36-05-4948pgoi 1 tablet by mouth three times dailyTAKE ONE TABLET BY MOUTH THREE TIMES DAILYStart: 06-03-2017 End: 07-95-3531pgxl 1 tablet by mouth three times dailyTAKE ONE TABLET BY MOUTH THREE TIMES DAILYStart: 06-03-2017 End: 65-21-1497xcjk 1 tablet by mouth three times dailyTAKE ONE TABLET BY MOUTH THREE TIMES DAILYStart: 06-03-2017 End: 52-62-5930whqn 1 tablet by mouth three times dailyTAKE ONE TABLET BY MOUTH THREE TIMES DAILYStart: 06-03-2017 End: 70-08-8412twnk 1 tablet by mouth three times dailyTAKE ONE TABLET BY MOUTH THREE TIMES DAILYStart: 06-03-2017 End: 89-63-0188mkiw 1 tablet by mouth three times dailyTAKE ONE TABLET BY MOUTH THREE TIMES DAILYStart: 06-03-2017 End: 19-73-4603awpp 1 tablet by mouth three times dailyTAKE ONE TABLET BY MOUTH THREE TIMES DAILYStart: 06-03-2017 End: 66-24-8105mfrl 1 tablet by mouth three times dailyTAKE ONE TABLET BY MOUTH THREE TIMES DAILYStart: 06-03-2017 End: 13-61-6907mixd 1 tablet by mouth three times dailygabapentin 600 mg oral tablet 06/03/2017 06/03/2017 TAKE ONE TABLET BY MOUTH THREE TIMES DAILYStart: 06-03-2017 End: 52-23-0869vqjz 1 tablet by mouth three times dailygabapentin 600 mg oral tablet 06/03/2017 06/03/2017 TAKE ONE TABLET BY MOUTH THREE TIMES DAILYStart: 06-03-2017 End: 79-52-3321ovbh 1 tablet by mouth three times dailygabapentin 600 mg oral tablet 06/03/2017 06/03/2017 TAKE ONE TABLET BY MOUTH THREE TIMES DAILYStart: 06-03-2017 End: 28-50-1247vjjk 1 tablet by mouth three times dailygabapentin 600 mg oral tablet 06/03/2017 06/03/2017 TAKE ONE TABLET BY MOUTH THREE TIMES DAILYStart: 06-03-2017 End: 51-85-4371lyjs 1 tablet by mouth three times dailygabapentin 600 mg oral tablet 06/03/2017 06/03/2017 TAKE ONE TABLET BY MOUTH THREE TIMES DAILYStart: 06-03-2017 End: 38-46-9110txex 1 tablet by mouth three times dailygabapentin 600 mg oral tablet 06/03/2017 06/03/2017 TAKE ONE TABLET BY MOUTH THREE TIMES DAILYStart: 06-03-2017 End: 38-92-7595lvgn 1 tablet by mouth three times dailygabapentin 600 mg oral tablet 06/03/2017 06/03/2017 TAKE ONE TABLET BY MOUTH THREE TIMES DAILYStart: 06-03-2017 End: 87-43-2548nkfc 1 tablet by mouth three times dailygabapentin 600 mg oral tablet 06/03/2017 06/03/2017 TAKE ONE TABLET BY MOUTH THREE TIMES DAILYStart: 06-03-2017 End: 17-61-7759lhhn 1 tablet by mouth three times dailygabapentin 600 mg oral tablet 06/03/2017 06/03/2017 TAKE ONE TABLET BY MOUTH THREE TIMES DAILYStart: 06-03-2017 End: 77-94-5594onnw 1 tablet by mouth three times dailygabapentin 600 mg oral tablet 06/03/2017 06/03/2017 TAKE ONE TABLET BY MOUTH THREE TIMES DAILYStart: 06-03-2017 End: 35-98-3751smew 1 tablet by mouth three times dailygabapentin 600 mg oral tablet 06/03/2017 06/03/2017 TAKE ONE TABLET BY MOUTH THREE TIMES DAILYStart: 06-03-2017 End: 49-26-1881ejmu 1 tablet by mouth three times dailygabapentin 600 mg oral tablet 06/03/2017 06/03/2017 TAKE ONE TABLET BY MOUTH THREE TIMES DAILYStart: 06-03-2017 End: 75-60-1014bnke 1 tablet by mouth three times dailygabapentin 600 mg oral tablet 06/03/2017 06/03/2017 TAKE ONE TABLET BY MOUTH THREE TIMES DAILYStart: 06-03-2017 End: 19-23-2132nuvb 1 tablet by mouth three times dailygabapentin 600 mg oral tablet 06/03/2017 06/03/2017 TAKE ONE TABLET BY MOUTH THREE TIMES DAILYStart: 06-03-2017 End: 51-11-3687lmjj 1 tablet by mouth three times dailygabapentin 600 mg oral tablet 06/03/2017 06/03/2017 TAKE ONE TABLET BY MOUTH THREE TIMES DAILYStart: 06-03-2017 End: 31-81-7387mvii 1 tablet by mouth three times dailygabapentin 600 mg oral tablet 06/03/2017 06/03/2017 TAKE ONE TABLET BY MOUTH THREE TIMES DAILYStart: 06-03-2017 End: 10-68-8523jepm 1 tablet by mouth three times dailygabapentin 600 mg oral tablet 06/03/2017 06/03/2017 TAKE ONE TABLET BY MOUTH THREE TIMES DAILYStart: 06-03-2017 End: 48-44-2932tfgj 1 tablet by mouth three times dailygabapentin 600 mg oral tablet 06/03/2017 06/03/2017 TAKE ONE TABLET BY MOUTH THREE TIMES DAILYStart: 06-03-2017 End: 33-86-0702sscm 1 tablet by mouth three times dailygabapentin 600 mg oral tablet 06/03/2017 06/03/2017 TAKE ONE TABLET BY MOUTH THREE TIMES DAILYStart: 06-03-2017 End: 19-89-1219njww 1 tablet by mouth three times dailygabapentin 600 mg oral tablet 06/03/2017 06/03/2017 TAKE ONE TABLET BY MOUTH THREE TIMES DAILYStart: 06-03-2017 End: 43-42-0869bflq 1 tablet by mouth three times dailygabapentin 600 mg oral tablet 06/03/2017 06/03/2017 TAKE ONE TABLET BY MOUTH THREE TIMES DAILYStart: 06-03-2017 End: 68-35-6904kzjn 1 tablet by mouth three times dailygabapentin 600 mg oral tablet 06/03/2017 06/03/2017 TAKE ONE TABLET BY MOUTH THREE TIMES DAILYStart: 06-03-2017 End: 86-05-5564ybun 1 tablet by mouth three times dailygabapentin 600 mg oral tablet 06/03/2017 06/03/2017 TAKE ONE TABLET BY MOUTH THREE TIMES DAILYStart: 06-03-2017 End: 83-90-2987gxcg 1 tablet by mouth three times dailygabapentin 600 mg oral tablet 06/03/2017 06/03/2017 TAKE ONE TABLET BY MOUTH THREE TIMES DAILYStart: 06-03-2017 End: 71-77-1069joyu 1 tablet by mouth three times dailygabapentin 600 mg oral tablet 06/03/2017 06/03/2017 TAKE ONE TABLET BY MOUTH THREE TIMES DAILYStart: 06-03-2017 End: 61-01-8925avtf 1 tablet by mouth three times dailygabapentin 600 mg oral tablet 06/03/2017 06/03/2017 TAKE ONE TABLET BY MOUTH THREE TIMES DAILYStart: 06-03-2017 End: 98-17-1105jwcm 1 tablet by mouth three times dailygabapentin 600 mg oral tablet 06/03/2017 06/03/2017 TAKE ONE TABLET BY MOUTH THREE TIMES DAILYStart: 06-03-2017 End: 14-17-1356zhmf 1 tablet by mouth three times dailygabapentin 600 mg oral tablet 06/03/2017 06/03/2017 TAKE ONE TABLET BY MOUTH THREE TIMES DAILYStart: 06-03-2017 End: 66-52-1229wter 1 tablet by mouth three times dailygabapentin 600 mg oral tablet 06/03/2017 06/03/2017 TAKE ONE TABLET BY MOUTH THREE TIMES DAILYStart: 06-03-2017 End: 62-76-1715laac 1 tablet by mouth three times dailygabapentin 600 mg oral tablet 06/03/2017 06/03/2017 TAKE ONE TABLET BY MOUTH THREE TIMES DAILYStart: 06-03-2017 End: 70-59-3566vcbo 1 tablet by mouth three times dailygabapentin 600 mg oral tablet 06/03/2017 06/03/2017 TAKE ONE TABLET BY MOUTH THREE TIMES DAILYStart: 06-03-2017 End: 25-72-5227lsvn 1 tablet by mouth three times dailygabapentin 600 mg oral tablet 06/03/2017 06/03/2017 TAKE ONE TABLET BY MOUTH THREE TIMES DAILYStart: 06-03-2017 End: 70-62-0714gfnf 1 tablet by mouth three times dailygabapentin 600 mg oral tablet 06/03/2017 06/03/2017 TAKE ONE TABLET BY MOUTH THREE TIMES DAILYStart: 06-03-2017 End: 80-14-2527dseg 1 tablet by mouth three times dailygabapentin 600 mg oral tablet 06/03/2017 06/03/2017 TAKE ONE TABLET BY MOUTH THREE TIMES DAILYStart: 06-03-2017 End: 65-90-4334chxn 1 tablet by mouth three times dailygabapentin 600 mg oral tablet 06/03/2017 06/03/2017 TAKE ONE TABLET BY MOUTH THREE TIMES DAILYStart: 06-03-2017 End: 54-56-2940snyv 1 tablet by mouth three times dailygabapentin 600 mg oral tablet 06/03/2017 06/03/2017 TAKE ONE TABLET BY MOUTH THREE TIMES DAILYStart: 06-03-2017 End: 57-49-0631lcwp 1 tablet by mouth three times dailygabapentin 600 mg oral tablet 06/03/2017 06/03/2017 TAKE ONE TABLET BY MOUTH THREE TIMES DAILYStart: 06-03-2017 End: 51-80-8250brpg 1 tablet by mouth three times dailygabapentin 600 mg oral tablet 06/03/2017 06/03/2017 TAKE ONE TABLET BY MOUTH THREE TIMES DAILYStart: 06-03-2017 End: 26-80-0133ndjd 1 tablet by mouth three times dailygabapentin 600 mg oral tablet 06/03/2017 06/03/2017 TAKE ONE TABLET BY MOUTH THREE TIMES DAILYStart: 06-03-2017 End: 42-57-9377hapc 1 tablet by mouth three times dailygabapentin 600 mg oral tablet 06/03/2017 06/03/2017 TAKE ONE TABLET BY MOUTH THREE TIMES DAILYStart: 06-03-2017 End: 32-08-4366tyvq 1 tablet by mouth three times dailygabapentin 600 mg oral tablet 06/03/2017 06/03/2017 TAKE ONE TABLET BY MOUTH THREE TIMES DAILYStart: 06-03-2017 End: 40-25-6101ttuc 1 tablet by mouth three times dailygabapentin 600 mg oral tablet 06/03/2017 06/03/2017 TAKE ONE TABLET BY MOUTH THREE TIMES DAILYStart: 06-03-2017 End: 85-46-4190pupb 1 tablet by mouth three times dailygabapentin 600 mg oral tablet 06/03/2017 06/03/2017 TAKE ONE TABLET BY MOUTH THREE TIMES DAILYStart: 06-03-2017 End: 66-06-1316kyyp 1 tablet by mouth three times dailygabapentin 600 mg oral tablet 06/03/2017 06/03/2017 TAKE ONE TABLET BY MOUTH THREE TIMES DAILYStart: 06-03-2017 End: 13-14-5494dsik 1 tablet by mouth three times dailygabapentin 600 mg oral tablet 06/03/2017 06/03/2017 TAKE ONE TABLET BY MOUTH THREE TIMES DAILYStart: 06-03-2017 End: 83-27-0390lgzg 1 tablet by mouth three times dailygabapentin 600 mg oral tablet 06/03/2017 06/03/2017 TAKE ONE TABLET BY MOUTH THREE TIMES DAILYStart: 06-03-2017 End: 30-88-6456zcxu 1 tablet by mouth three times dailygabapentin 600 mg oral tablet 06/03/2017 06/03/2017 TAKE ONE TABLET BY MOUTH THREE TIMES DAILYStart: 06-03-2017 End: 28-14-1308uzob 1 tablet by mouth three times dailygabapentin 600 mg oral tablet 06/03/2017 06/03/2017 TAKE ONE TABLET BY MOUTH THREE TIMES DAILYStart: 06-03-2017 End: 07-77-3139uuky 1 tablet by mouth three times dailygabapentin 600 mg oral tablet 06/03/2017 06/03/2017 TAKE ONE TABLET BY MOUTH THREE TIMES DAILYStart: 06-03-2017 End: 66-64-1588zhig 1 tablet by mouth three times dailygabapentin 600 mg oral tablet 06/03/2017 06/03/2017 TAKE ONE TABLET BY MOUTH THREE TIMES DAILYStart: 06-03-2017 End: 66-30-8001dprk 1 tablet by mouth three times dailygabapentin 600 mg oral tablet 06/03/2017 06/03/2017 TAKE ONE TABLET BY MOUTH THREE TIMES DAILYStart: 06-03-2017 End: 88-48-3214zqfz 1 tablet by mouth three times dailygabapentin 600 mg oral tablet 06/03/2017 06/03/2017 TAKE ONE TABLET BY MOUTH THREE TIMES DAILYStart: 06-03-2017 End: 55-27-3837gkac 1 tablet by mouth three times dailygabapentin 600 mg oral tablet 06/03/2017 06/03/2017 TAKE ONE TABLET BY MOUTH THREE TIMES DAILYStart: 03-18-2016 End: 74-14-6362bkrp 1 tablet by mouth three times dailytake 1 tablet (600 mg) by oral route 3 times per daygabapentin (Neurontin) 800 MG tablet every 8 (eight) hours ActiveInsulin Lispro (1 Unit Dial) 100 UNIT/ML Subcutaneous Solution Pen-injector (20 sources)Start: 04-05-2022 End: 80-23-7803Ncatgkz Lispro (1 Unit Dial) 100 UNIT/ML Subcutaneous Solution Pen-injector 04/05/2022 09/27/2022 INJECT 12 UNITS SUBCUTANEOUSLY WITH MEALS. PRIME WITH 2 UNITS EACH USEStart: 11-24-2021 End: 12-08-0979Clrjyho Lispro (1 Unit Dial) 100 UNIT/ML Subcutaneous Solution Pen-injector 11/24/2021 04/13/2022 INJECT 12 UNITS SUBCUTANEOUSLY WITH MEALS. PRIME WITH 2 UNITS EACH USEInsulin Lispro 100 unit/mL Insulin Pen (2 sources)Start: 77-55-2474vjayfv 12 [IU] by subcutaneous injection three times dailyInsulin Lispro 100 unit/mL Insulin Pen Active 12 UNIT SUBCUT Three times daily April 13, 2022 11:00pm4 ml labetalol hydrochloride 5 mg/ml cartridge (1 source)beta-Adrenergic BlockerStart: 04-83-3790abtndvsxu (NORMODYNE;TRANDATE) injection 5 mgammonium lactate 120 mg/ml topical cream (4 sources)Start: 99-65-1617szybhkbl lactate (Amlactin) 12 % cream 1 application every 12 (twelve) hours. 05/25/2022 Activelisinopril 10 mg oral tablet (20 sources)Angiotensin Converting Enzyme InhibitorStart: 09-90-5932wdqb 1 tablet by mouth once dailylisinopril 10 MG tablet Take 10 mg by mouth Daily 02/04/2025 ActiveStart: 93-55-4165sokv 1 tablet by mouth once dailyLisinopril 10 mg tablet Active 10 MG PO Daily August 14, 2024 12:00amStart: 67-05-1470bbmg 5 mg by mouth once dailyLisinopril Active 5 MG PO Daily April 13, 2022 11:00pmStart: 04-14-2022 End: 39-79-7601tdet 2 tablets by mouth once dailyLisinopril 5 mg Tablet Discontinued 10 MG PO Daily April 13, 2022 11:00pm August 14, 2024 3:16pm Start: 96-99-9469rhxn 10 mg by mouth once dailyLisinopril Active 10 MG PO Daily April 14, 2022 12:00amStart: 08-30-2018 End: 85-28-4077oqaf 1 tablet by mouth once dailytake 1 tablet (10 mg) by oral route once daily for 90 daysStart: 06-03-2015 End: 88-43-2483vdcr 1 tablet by mouth once dailytake 1 tablet (10 mg) by oral route once dailymetFORMIN hydrochloride 500 mg oral tablet (20 sources)BiguanideStart: 11-26-2024 End: 49-16-1434sypu 1 tablet by mouth three times dailyTAKE 1 TABLET BY MOUTH THREE TIMES DAILYStart: 04-14-2022 End: 66-87-8613lkzo 1 tablet by mouth three times dailyMetformin 500 mg Tablet Active 500 MG PO Three times daily April 13, 2022 11:00pmStart: 09-03-2021 take 1 tablet by mouth three times dailymetformin 500 mg oral tablet 09/03/2021 TAKE ONE TABLET BY MOUTH THREE TIMES DAILYStart: 09-08-2020 End: 98-47-1173vgsn 1 tablet by mouth three times dailymetformin 500 mg oral tablet 09/08/2020 TAKE ONE TABLET BY MOUTH THREE TIMES DAILYStart: 38-34-5338wjyh 1 tablet by mouth three times dailymetformin 500 mg oral tablet 06/11/2019 TAKE ONE TABLET BY MOUTH THREE TIMES DAILYStart: 08-26-2015 End: 32-25-8993uygh 1 tablet by mouth twice daily at dinnertake 1 tablet (500 mg) by oral route 2 times per day with morning and evening mealsmetFORMIN (Glucophage) 500 MG tablet every 8 (eight) hours Active2 ml metoclopramide 5 mg/ml prefilled syringe (1 source)Dopamine-2 Receptor AntagonistStart: 12-28-2019 End: 26-08-4380awtryrhfrjxuhi (REGLAN) injection 10 mgomega-3 acid ethyl esters (prison) 1200 mg oral capsule (6 sources)Power-3 Fatty Acids (FISH OIL) 1200 MG CAPS Take by mouth daily 0 ActiveOmega-3 Fatty Acids (FISH OIL) 1200 MG CAPS (1 source)Power-3 Fatty Acids (FISH OIL) 1200 MG CAPS Take by mouth daily 0 Active2 ml ondansetron 2 mg/ml injection (1 source)Serotonin-3 Receptor AntagonistStart: 12-28-2019 End: 46-00-2742armmvmjdasy (ZOFRAN) injection 4 mgoxyCODONE hydrochloride 5 mg oral tablet (2 sources)Opioid AgonistStart: 12-28-2019 End: 63-06-5042vlsEOKOXI (ROXICODONE) immediate release tablet 5 mgpyridoxine hydrochloride 25 mg oral tablet (3 sources)Start: 10-38-0673bgir 1 tablet by mouth once dailyPyridoxine (Vitamin B6) 25 mg tablet Active 25 MG PO Daily December 13, 2023 11:00pmsildenafil 100 mg oral tablet (20 sources)Phosphodiesterase 5 InhibitorStart: 26-49-5720Zosouxbeod 100 mg tablet Active 100 MG PO As Directed as needed for sexual activity December 02, 2023 11:00pmStart: 69-25-8384Cpeenyupdk Active MG TABLET December 03, 2023 12:00am Start: 10-28-2023 End: 57-63-1705bnvu 1 tablet by mouth once daily as neededtake 1 tablet (100 mg) by oral route once daily as needed approximately 1 hour before sexual activity for 30 daysStart: 09-03-2021 End: 17-72-9558yarm 1 tablet by mouth once daily as neededsildenafil 100 mg oral tablet 07/27/2022 10/25/2022 take 1 tablet (100 mg) by oral route once daily as needed approximately 1 hour before sexual activity for 90 daysStart: 02-21-2020 End: 19-95-0265dhip 1 tablet by mouth once daily as neededsildenafil 100 mg oral tablet 02/21/2020 02/15/2021 take 1 tablet (100 mg) by oral route once daily as needed approximately 1 hour before sexual activity for 90 days3 ml sodium chloride 9 mg/ml injection (2 sources)Start: 00-79-8390tcpbxl chloride flush 0.9 % injection 10 mLSyringe, Disposable, 3 ML misc (2 sources)Start: 04-08-2025 End: 79-22-4818Pbowmzg, Disposable, 3 ML misc 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 1 Syringe every 14 (fourteen) days 10 each 1 04/08/2025 07/07/2025 Active1 ml testosterone cypionate 200 mg/ml injection (2 sources)AndrogenStart: 04-08-2025 End: 50-44-9724uxvapjlikajz cypionate (Depo-Testosterone) 200 MG/ML injection 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 Inject 1 mL (200 mg) into the shoulder, thigh, or buttocks every 14 (fourteen) days 6 mL 04/08/2025 07/07/2025 Active vitamin b6 50 mg oral tablet (20 sources)Start: 03-21-2024 End: 94-53-3942layj 1 tablet by mouth once dailyTake 1 tablet by mouth once dailyStart: 11-06-2021 End: 82-67-2657jhyn 1 tablet by mouth once dailyTake 1 tablet by mouth once dailyStart: 12-27-2019 End: 87-19-7209yvbq 1 tablet by mouth once dailytake 1 tablet by oral route dailyStart: 12-12-2018 End: 35-05-5356cmnr 1 tablet by mouth once dailytake 1 tablet by oral route dailytake 1 tablet by mouth once dailytake 1 tablet by oral route daily Completed/Discontinued Medications MedicationDrug Class(es)DatesSig (Normalized)Sig (Original)acetaminophen 325 mg / HYDROcodone bitartrate 5 mg oral tablet (20 sources)Opioid AgonistStart: 07-13-2017 End: 14-81-6385gzgb 1 tablet by mouth every six hours as needed for paintake 1 tablet by oral route every 6 hours as needed for painacetaminophen 325 mg / oxyCODONE hydrochloride 5 mg oral tablet (1 source)Opioid AgonistStart: 12-28-2019 End: 79-90-6229jxkw 1-2 tablets by mouth every four to six hours as needed for painoxyCODONE-acetaminophen (PERCOCET) 5-325 MG per tablet Indications: 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, initial encounter Take 1-2 tablets by mouth every 4-6 hours as needed for Pain for up to 7 days. 56 tablet 0 12/28/2019 01/04/2020 [id number] 200 actuat albuterol 0.09 mg/actuat metered dose inhaler (20 sources)beta2-Adrenergic AgonistStart: 99-68-0738yacv 1 puff(s) by mouth every six hours as neededINHALE 1 PUFF BY MOUTH EVERY 6 HOURS NEEDEDStart: 99-65-1610Efpqwluxj Sulfate 90 mcg/actuation HFA aerosol inhaler Active 1 INH INHALATION Every 6 hours as needed for shortness of breath or wheezing December 02, 2023 11:00pmStart: 75-14-6733Cxvleyksn Sulfate Active INHALATION December 03, 2023 12:00amStart: 78-98-1320lebg 1 puff(s) by mouth every six hours as neededINHALE 1 PUFF BY MOUTH EVERY 6 HOURS NEEDEDStart: 85-83-9769alba 1 puff(s) by mouth every six hours as neededVentolin HFA 90 mcg/actuation aerosol inhaler 05/11/2022 INHALE 1 PUFF BY MOUTH EVERY 6 HOURS NEEDEDStart: 86-69-0135yqbx 1 puff(s) by mouth every six hours as neededVentolin HFA 90 mcg/actuation aerosol inhaler 03/06/2021 INHALE 1 PUFF BY MOUTH EVERY 6 HOURS NEEDEDStart: 09-97-8821lggy 1 puff(s) by mouth every six hours as neededVentolin HFA 90 mcg/actuation inhalation HFA aerosol inhaler 10/20/2020 INHALE 1 PUFF BY MOUTH EVERY6 HOURS NEEDEDStart: 25-59-7859qqcj 1 puff(s) by mouth every six hours as neededVentolin HFA 90 mcg/actuation inhalation HFA aerosol inhaler 04/23/2020 INHALE 1 PUFF BY MOUTH EVERY 6 HOURS NEEDEDStart: 49-07-3802kozz 1 puff(s) by mouth every six hours as neededVentolin HFA 90 mcg/actuation inhalation HFA aerosol inhaler 03/14/2019 INHALE 1 PUFF BY MOUTH EVERY 6 HOURS NEEDEDStart: 45-93-4201kpcd 1 puff(s) by mouth every six hours as neededVentolin HFA 90 mcg/actuation inhalation HFA aerosol inhaler 10/05/2017 INHALE 1 PUFF BY MOUTH EVERY6 HOURS NEEDEDStart: 09-01-2017 End: 95-16-9421idqu 1 puff(s) by inhalation every six hours as neededinhale 1 puff (90 mcg) by inhalation route every 6 hours as neededStart: 09-01-2017 End: 79-15-4600lqoa 1 puff(s) by inhalation every six hours as neededProAir HFA 90 mcg/actuation inhalation HFA aerosol inhaler 09/01/2017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 08-26-3247KgyylohNrigpuaen hypertension (20 sources)Benign essential hypertension; Translations: [Malignant essential hypertension]Onset: 19-88-2325ZqpjwicWvhrskkx cause codes: Fall (20 sources)Unspecified fall; Translations: [Fall]Onset: 04-25-0846Xyyonepmiysc with complications and secondary hypertension (20 sources)Other unspecified secondary hypertension; Translations: [Hypertension secondary to endocrine disorders]Onset: 30-84-4997TyymzueRjhfyti and fatigue (20 sources)Other malaise and fatigue; Translations: [Other fatigue]Onset: 68-13-4396CphfivxbSecs disorders (20 sources)Depressive disorder, not elsewhere classified; Translations: [Depressive disorder]Onset: 89-93-7623DgrrqctTjuuh aftercare (3 sources)Surgical follow-up; Translations: [Encounter for removal of sutures] 73-20-7057VinsuwgiKntoj circulatory disease (20 sources)Peripheral vascular disease; Translations: [Other specified peripheral vascular diseases]Onset: 53-27-7411BsfpemnQbiiz circulatory disease (20 sources)Other specified peripheral vascular diseasesOnset: 90-75-6053Gmqztip Other endocrine disorders (2 sources)Male hypogonadism; Translations: [Testicular hypofunction]04-08-2025 ChronicOther liver diseases (20 sources)Fatty (change of) liver, not elsewhere classifiedOnset: 01-15-2022 ChronicOther liver diseases (12 sources)Steatosis of liver; Translations: [Other chronic nonalcoholic liver disease]Onset: 62-92-2186WlmkhyrElaui lower respiratory disease (2 sources)Dyspnea; Translations: [Shortness of breath]24-08-2565WcosbmkdDhftb male genital disorders (1 source)Impotence of organic originOnset: 97-15-2283UxojqvwMjywe male genital disorders (20 sources)Erectile dysfunction due to diseases classified elsewhereOnset: 17-27-0539BxqniyuBhoul nervous system disorders (20 sources)Disorder of the peripheral nervous system; Translations: [Unspecified hereditary and idiopathic peripheral neuropathy]Onset: 04-05-2017 ChronicOther nervous system disorders (20 sources)Unspecified hereditary and idiopathic peripheral neuropathyOnset: 30-89-1292InhjqojBqpbr nervous system disorders (20 sources)Mononeuritis of unspecified siteOnset: 65-47-3334IahowopUzftv nervous system disorders (20 sources)Polyneuropathy in diseases classified elsewhereOnset: 03-31-2016 ChronicOther nervous system disorders (20 sources)Polyneuropathy, unspecified; Translations: [Mononeuritis of unspecified site]Onset: 589706-83-5631MmifwvxHpwsd nervous system disorders (8 sources)Neuropathy; Translations: [Polyneuropathy, unspecified]04-14-2022 ChronicOther non-traumatic joint disorders (1 source)Shoulder pain; Translations: [Acute pain of right shoulder]Episodic Other non-traumatic joint disorders (1 source)Pain in right knee; Translations: [Right knee pain, unspecified chronicity]Other nutritional; endocrine; and metabolic disorders (20 sources)Obesity, unspecifiedOnset: 05-22-1323SujrdqcZewsa nutritional; endocrine; and metabolic disorders (20 sources)Morbid obesityOnset: 89-31-4605WryrykwWeooz nutritional; endocrine; and metabolic disorders (20 sources)Obesity, unspecifiedOnset: 27-70-1341TwlbbtaRfwsx nutritional; endocrine; and metabolic disorders (20 sources)Morbid (severe) obesity due to excess caloriesOnset: 06-03-2015 ChronicOther nutritional; endocrine; and metabolic disorders (20 sources)HypercalcemiaOnset: 02-78-1525WeombpsKfnlf nutritional; endocrine; and metabolic disorders (2 sources)Obesity caused by energy imbalance; Translations: [Class 1 obesity due to excess calories without serious comorbidity with body mass index (BMI) of 34.0 to 34.9 in adult]20-68-7648XlscqtyZgsgh upper respiratory disease (20 sources)Allergic rhinitis, unspecifiedOnset: 93-09-7881HdcnwuiJkrfq upper respiratory disease (20 sources)Chronic rhinitisOnset: 63-18-3933SkhvxgyEzphu upper respiratory infections (20 sources)Chronic frontal sinusitisOnset: 57-54-1791FpuoawzHfiofwqa codes; unclassified (19 sources)Obstructive sleep apnea (adult)(pediatric)Onset: 84-06-3888Syllamf Residual codes; unclassified (20 sources)Obstructive sleep apnea (adult) (pediatric)Onset: 51-25-7152Iitsxph Residual codes; unclassified (20 sources)Tobacco use; Translations: [Tobacco use disorder]Onset: 08-26-2015 25-46-9877ByojspgdKyfctrab codes; unclassified (8 sources)Tobacco use and exposure - finding; Translations: [Tobacco use] 45-97-9887EcrrzemeEfanrlni codes; unclassified (2 sources)Reduced libido; Translations: [Decreased libido]95-81-6389Knlwpeop Sprains and strains (5 sources)Traumatic rupture of rotator cuff; Translations: [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, initial encounter]Onset: EpisodicSubstance-related disorders (20 sources)Tobacco use disorder; Translations: [Nicotine dependence, unspecified, uncomplicated]Onset: 25-50-6314Ibturbt Past or Other Problems Problem ClassificationProblemDateDocumented DateEpisodic/ChronicAbdominal hernia (20 sources)Umbilical hernia without mention of obstruction or gangrene; Translations: [Umbilical hernia]Onset: 05-74-0825SnwrhrwqCfbsudttze associated with dizziness or vertigo (20 sources)Dizziness and giddiness; Translations: [Dizziness and giddiness] Onset: 85-50-8577WyvdwqkbZkbjpzwa mellitus with complications (20 sources)Type 2 diabetes mellitus with other diabetic neurological complication; Translations: [Diabetes mellitus due to underlying condition with diabetic neuropathic arthropathy]Onset: 06-03-2015E Codes: Fall (20 sources)Fall; Translations: [Unspecified fall]Onset: 31-56-1488JyirstqlCduup and electrolyte disorders (20 sources)Hypopotassemia; Translations: [Hypokalemia]Onset: 73-93-5676Boccygsf Fracture of lower limb (20 sources)Other fracture of right lower leg, initial encounter for closed fracture; Translations: [Fracture of unspecified metatarsal bone(s), right foot, initial encounter for closed fracture]Onset: 135372-45-7565Xbeowdgo Comment on above:Problem List clean-up per request of Phys. EHR Cmte Immunizations and screening for infectious disease (20 sources)Need for prophylactic vaccination and inoculation against influenza; Translations: [Encounter for immunization]Onset: 09-74-3374KsjhmrbfHuxo disorders (20 sources)Major depressive disorder, single episode, unspecified; Translations: [Mood disorders]Onset: 72-27-5070Ampphsa (20 sources)Onychomycosis due to dermatophyte ; Translations: [Dermatophytosis of nail]Onset: 46-00-2411BreszgoeHevuujybg of unspecified nature or uncertain behavior (20 sources)Neoplasm of uncertain behavior of skin; Translations: [Neoplasm of uncertain behavior of skin]Onset: 01-81-6327KdqfruanRrfsqnwdmzn chest pain (20 sources)Chest pain, unspecified; Translations: [Chest pain, unspecified] Onset: 07-77-0396TlupfpxsDsve wounds of extremities (20 sources)Unspecified open wound of unspecified toe(s) with damage to nail, initial encounter; Translations: [Unspecified open wound, right foot, initial encounter]Onset: 72-72-0143YbdycfppTlen wounds of head; neck; and trunk (20 sources)Laceration without foreign body of other part of head, initial encounter; Translations: [Laceration- injury]Onset: 889356-68-7381Unkiafgj Other aftercare (13 sources)Encounter for removal of suturesOnset: 38-01-3292TzjqsikyKeiyo aftercare (20 sources)Encounter for removal of suturesOnset: 32-17-2669WmqtbusaGoapk and unspecified benign neoplasm (19 sources)Benign neoplasm of skin of upper limb, including shoulderOnset: 64-12-1109SnrshfidEjaml and unspecified benign neoplasm (20 sources)Other benign neoplasm of skin of left upper limb, including shoulder Onset: 35-76-4486PwrkzkifGqchr connective tissue disease (8 sources)Adhesive capsulitis of shoulderOnset: 59-12-4935JxisrcxbIynlu connective tissue disease (20 sources)Adhesive capsulitis of unspecified shoulderOnset: 62-19-4979Homhvgxm Other connective tissue disease (20 sources)Pain in left footOnset: 03-30-7635YwrklkquXzmfa connective tissue disease (20 sources)Foot pain; Translations: [Pain in limb]Onset: 92-47-5557Ltnmopel Other connective tissue disease (20 sources)Neuralgia and neuritis, unspecifiedOnset: 26-49-6813UczmcimpWkszi connective tissue disease (20 sources)Pain in right foot; Translations: [PAIN IN RIGHT FOOT]Onset: 75-05-2978DtxqmtctJjssl endocrine disorders (20 sources)Endocrine disorder, unspecifiedOnset: 52-04-0139YhbqjdpmTrytx fractures (19 sources)Late effect of fracture of spine and trunk without mention of spinal cord lesionOnset: 81-93-1381JvmbirarDszbh fractures (20 sources)Multiple fractures of ribs, right side, sequelaOnset: 06-27-2017 EpisodicOther injuries and conditions due to external causes (19 sources)Open wound of face, unspecified site, without mention of complicationOnset: 96-62-7986RwbawlnkAguwd lower respiratory disease (20 sources)Shortness of breathOnset: 86-50-6820CvmmyujdOifac lower respiratory disease (20 sources)Other respiratory abnormalitiesOnset: 82-86-1390HnnxsloeWkgyt lower respiratory disease (19 sources)Respiratory abnormality, unspecifiedOnset: 28-55-5286XzhzgygiGfmoh lower respiratory disease (20 sources)Shortness of breath; Translations: [Shortness of breath]Onset: 84-65-6864TffxvlozWcwst lower respiratory disease (20 sources)Other forms of dyspneaOnset: 41-50-8249VvbgqcvaJztue lower respiratory disease (20 sources)SnoringOnset: 67-70-4627LdsbzvxnQaawn lower respiratory disease (20 sources)Unspecified abnormalities of breathingOnset: 42-77-6395NldmfqktAesam nervous system disorders (14 sources)Disturbance of skin sensationOnset: 37-51-9507JsgabjrvGxteu nervous system disorders (20 sources)Other disturbances of skin sensationOnset: 63-50-2443AakrvtusYzcnj non-traumatic joint disorders (20 sources)Pain in right ankle and joints of right foot; Translations: [PAIN IN RIGHT ANKLE]Onset: 23-41-5794SgoemujkVfydi screening for suspected conditions (not mental disorders or infectious disease) (20 sources)Encounter for screening for malignant neoplasm of prostateOnset: 42-44-7929QdbksyeuOeyde skin disorders (20 sources)Sebaceous cystOnset: 28-91-9118RwvvruhxJxvzh skin disorders (20 sources)Unspecified hypertrophic and atrophic conditions of skinOnset: 42-76-5875TliiltfhCphfa skin disorders (20 sources)Follicular cyst of the skin and subcutaneous tissue, unspecified Onset: 27-48-1471AmimyurhDveuv skin disorders (20 sources)Other hypertrophic disorders of the skinOnset: 00-47-6236Idrfcopg Other skin disorders (20 sources)Epidermal cystOnset: 55-52-2065XtumbdltQzqhq skin disorders (20 sources)Sebaceous cystOnset: 21-45-6132SsnalanxJfzzp skin disorders (20 sources)Foot callus; Translations: [Corns and callosities]Onset: 09-18-2021 EpisodicOther skin disorders (20 sources)Corns and callositiesOnset: 41-03-9709PkhpjcdyBwhib skin disorders (20 sources)Personal history of diseases of the skin and subcutaneous tissue Onset: 95-80-5704XhzgdnmqQkbsjskv codes; unclassified (19 sources)FlushingOnset: 50-35-7163CcddcwtrHebcfrtd codes; unclassified (15 sources)Other plastic surgery for unacceptable cosmetic appearanceOnset: 53-50-4296RsoiqkrzMmhfwitw codes; unclassified (20 sources)FlushingOnset: 17-90-0161KodvyrqoLautmcuw codes; unclassified (20 sources)Encounter for cosmetic surgeryOnset: 65-29-6605IebpstfiKaxvegcj codes; unclassified (20 sources)Localized edemaOnset: 77-90-1223KybzumyrHxvbpdvs codes; unclassified (4 sources)Other specified health statusOnset: 25-27-7432PdjjpjtfKrxs and subcutaneous tissue infections (20 sources)Abscess of toe of left foot; Translations: [Cellulitis and abscess of toe, unspecified]Onset: 08-78-9095QlussnclJccyasmhaev; intervertebral disc disorders; other back problems (20 sources)Lumbago; Translations: [Low back pain]Onset: 27-79-1096Fenqhiig Unclassified (20 sources)Anxiety state, unspecifiedOnset: 95-05-5269Jgxbibosbgia (1 source)Nondependent abuse of drugs; alcohol abuse; unspecifiedOnset: 50-65-0521Mvvno infection (20 sources)Viral infection, unspecifiedOnset: 23-72-7939Samspalh Results Test NameValueInterpretationReference RangeFacilityX-ray reportOrdered By: Dionte Torres on 43-61-9493Ikddb reportSELECT [facility]ICAL [facility] [address] [address] XRay Report Signed Patient: Geremias Melchor MR#: [id number] : 1965 Acct:[id number] Age/Sex: 58 / M ADM Date: 5 Loc: RT Room: Type: [facility] CLI Attending Dr: Ayanna Brooks SSIS ARCHITECT-C Copies to: BETH Mccabe~ Ordering Provider: BETH [...] Torres Jr., D.O.07/19/2024 4:33 PM Dictation Location: [place] [address] Transcribed By: [facility] 07/19/24 1633 Dictated By: Dionte Torres Jr, DO 07/19/24 1633 Signed By: 07/19/24 1633 [facility]*on 68-71-1291FQ chest 2V*[facility] [address] [address] XRay Report Signed Patient: Geremias Melchor MR#: [id number] 5 : 1965 Acct:[id number] Age/Sex: 58 / M ADM Date: 07/19/24 Loc: RT Room: Type: [facility] CLI Attending Dr: Ayanna Brooks SSIS ARCHITECT-C Copies to: BETH Mccabe Ordering Provider: BETH [...] Torres Jr., D.O.07/19/2024 4:33 PM Dictation Location: [facility]--[facility] Transcribed By: [facility] 07/19/24 1633 Dictated By: Dionte Torres Jr, DO 07/19/24 1633 Signed By: 07/19/24 1633[facility] GroupCardiology Office/Clinic Noteon 60-51-9286Khimqeqqkn Office/Clinic NoteChief Complaint Follow-up visit for hypertension, [...] mildly increased. Working t (more content not included)...[facility] HealthcareCardiac Echocardiogram Transthoracicon 02-12-8287Gmxttjy Echocardiogram TransthoracicTRANSTHORACIC ECHOCARDIOGRAM Study Date/Time: Jan 11 2024 3:48PM BP: 148 / 90 HR: 88 bpm HT/WT: 180.3 cm (71 in) / 108.9 kg (239.5 lb) BSA/BMI: 2.28 m^2 / 33.5 kg/m^2 ORDERING PROVIDER: Ayanna Brooks INTERPRETING PHYSICIAN: Bo Pearce DO COMMERCIAL ILLUSTRATOR: Vonda Paige RD, [facility] INDICATIONS: Dyspnea. CONCLUSIONS SUMMARY: 1. Left ventricle: [...] 01/13/2024 7:32 am Signed (more content not included)...NormalMercy Health Perrysburg HospitalComment on above:Order Comment: flacaLaboratory - Chemistry and Chemistry - challengeon 83-05-4186Zojpwmp (U) [Mass/Vol]21.2Invalid Interpretation Code<17.0[place] [facility] Albumin [Mass/Vol]4.60 g/dLInvalid Interpretation Code 3.7-5.0[place] [employer] [facility] Albumin/Creatinine DL <= 20 mg/L (U) [Mass ratio]43.1 mg/gInvalid Interpretation Code0.0-30.0[place] [employer] [facility] Albumin/Globulin [Mass ratio]1.3 {ratio}Invalid Interpretation Code1.0-2.4B[facility] [employer] [facility] ALP [Catalytic activity/Vol]83.0 U/LInvalid Interpretation Skip45-888OvclgbjikWhatSalon ALT [Catalytic activity/Vol]51.0 U/LInvalid Interpretation Code0-50[place]fieldWhatSalon Anion gap [Moles/Vol]14 mmol/LInvalid Interpretation Swch90-72Ndelocrqe [employer] [facility] AST [Catalytic activity/Vol]41.0 U/LInvalid Interpretation Code0-40[place] [employer] [facility] Bilirubin [Mass/Vol]0.30 mg/dLInvalid Interpretation Code0.0-1.0[place] [employer] [facility] Bilirubin Ql (U)NegativeInvalid Interpretation Code NegativeNewfieldOM Latam [facility] Calcium [Mass/Vol]10.40 mg/dLInvalid Interpretation Code8.5-10.8Bbu[facility] [employer] [facility] Chloride [Moles/Vol]102.0 mmol/LInvalid Interpretation Bopr870-043Dicxfupsc [place] [facility] Cholesterol [Mass/Vol]236.0 mg/dLInvalid Interpretation Code0-200[place] [facility] Cholesterol in HDL [Mass/Vol]53.0 mg/dLInvalid Interpretation Oxbk00-152TzwdnaqksOM [place] [facility] Cholesterol in LDL [Mass/Vol]146.0 mg/dLInvalid Interpretation Code0-130[place] [employer] [facility] Cholesterol in VLDL [Mass/Vol]37.0 mg/dLInvalid Interpretation Code0-39[place] [facility] Cholesterol.total/Cholesterol in HDL [Mass ratio]4 {ratio}Invalid Interpretation CodeNewfieldOM Lat[place] [facility] CO2 [Moles/Vol]25.0 mmol/LInvalid Interpretation Code 23-30[place] [facility] Creatinine (U) [Mass/Vol]49.20 mg/dLInvalid Interpretation CodeNot Estab. mg/dLBbucyrus community hospital [employer] Creatinine [Mass/Vol]1.10 mg/dLInvalid Interpretation Code0.5-1.5Bskagit valley hospitalSquid Facil Glucose [Mass/Vol]159.0 mg/dLInvalid Interpretation Hxod79-214XsbaetfhiWhatSalon Ketones Ql (U)NegativeInvalid Interpretation Code NegativeNewfieldWhatSalon pH (U)6 [pH]Invalid Interpretation Code5.0-9.0[place] [facility] Potassium [Moles/Vol]4.40 mmol/LInvalid Interpretation Code3.5-5.3Bskagit valley hospitalNext [employer] [facility] Protein [Mass/Vol]8.20 g/dLInvalid Interpretation Code 6.3-7.9Bskagit valley hospitalSquid Facil Sodium [Moles/Vol]137.0 mmol/LInvalid Interpretation Qjsv328-048SxideboblOM [place] [facility] Specific gravity (U) [Rel density]1.010Invalid Interpretation Code1.003-1.030[place]WhatSalon Triglyceride [Mass/Vol]184.0 mg/dLInvalid Interpretation Eucc72-590SvpymyqjxWhatSalon Urea nitrogen [Mass/Vol]16.0 mg/dLInvalid Interpretation Code7-25[place] [facility] Urea nitrogen/Creatinine [Mass ratio]15 mg/mgInvalid Interpretation Code6-20NewfieldWhatSalon Urobilinogen (U) [Mass/Vol]normalInvalid Interpretation CodenormalNewfieldOM Latam [facility] Laboratory - Hematology and Cell countson 11-14-2023 Erythrocyte distribution width (RBC) [Ratio]12.60 %Invalid Interpretation Code 11.5-15.5[facility] satelliteRapt HbA1c (Bld) [Mass fraction]6.80 %Invalid Interpretation Code4.3-6.3Bbucy[facility] [employer] [facility] Hematocrit (Bld) [Volume fraction]46.80 %Invalid Interpretation Code37.8-51.0[place] [facility] Hemoglobin (Bld) [Mass/Vol]15.70 g/dLInvalid Interpretation Code12.6-17.0[place] [facility] Hemoglobin Ql (U)NegativeInvalid Interpretation Code NegativeAultman Hospital Brandkids [facility] MCH (RBC) [Entitic mass]32.80 pgInvalid Interpretation Code25.7-33.8Bbu[facility] [employer] [facility] MCHC (RBC) [Mass/Vol]33.50 g/dLInvalid Interpretation Code32.0-36.0[place] [facility] MCV (RBC) [Entitic vol]97.70 fLInvalid Interpretation Code81.0-100.2Bskagit valley hospitalNext [employer] Networks [facility] Platelet mean volume (Bld) [Entitic vol]9.70 fLInvalid Interpretation Code8.3-11.5Bskagit valley hospitalNext [employer] Networks [facility] Platelets (Bld) [#/Vol]240.0 10*3/uLInvalid Interpretation Ypbz979-871RgfxjbdexOM [place] [facility] RBC (Bld) [#/Vol]4.790 10*6/uLInvalid Interpretation Code4.34-5.61[place] [facility] WBC (Bld) [#/Vol]6.90 10*3/uLInvalid Interpretation Code3.9-10.3Bskagit valley hospitalNext New Networks [facility] Laboratory - Specimen informationon 50-35-5120Tbxcfsy (U)ClearInvalid Interpretation CodeClearBlanshasta regional medical center [employer] Color (U)yellowInvalid Interpretation Codeyellow [place] [facility] Laboratory - Urinalysison 90-57-9413Ozdhuwz Test strip (U) [Mass/Vol]4+Invalid Interpretation CodeNegativeNewfieldWhatSalon Leukocyte esterase Test strip Ql (U)TraceInvalid Interpretation CodeNegativeNewfieldWhatSalon Nitrite Ql (U)NegativeInvalid Interpretation Code NegativeNewfieldWhatSalon Protein Ql (U)1+Invalid Interpretation CodeNegative MonroeMarginLeft No Panel Informationon 23-13-6824865.0 mg/dLInvalid Interpretation CodeHuddleApp 77Invalid Interpretation CodeNewfieldWhatSalon No Panel Informationon 03-87-8429Pogoyyp smoking status Current Tobacco UserInvalid Interpretation CodeHuddleApp Diabetic Retinal Eye ExamInvalid Interpretation Code [employer] Physician Orderon 24-62-9688Muizdvnjq Order [id number]#1.00TIFFNormalFisher [address] Agnes HospitalLaboratory - Chemistry and Chemistry - challengeon 40-74-4289Ypdzmaa (U) [Mass/Vol]< 12.0Invalid Interpretation Code< 17.0 ug/mLHuddleApp Albumin [Mass/Vol]4.50 g/dLInvalid Interpretation Code 3.7-5.0[employer] Albumin/Globulin [Mass ratio]1.4 {ratio}Invalid Interpretation Code1.0-2.4Bskagit valley hospitalNext [employer] Networks [facility] ALP [Catalytic activity/Vol]93.0 U/LInvalid Interpretation Gidv04-972UjtpmqwevWhatSalon ALT [Catalytic activity/Vol]62.0 U/LInvalid Interpretation Code0-50[place]WhatSalon Anion gap [Moles/Vol]16 mmol/LInvalid Interpretation Atpj40-15XaidsxoclWhatSalon AST [Catalytic activity/Vol]46.0 U/LInvalid Interpretation Code0-40[place]WhatSalon Bilirubin [Mass/Vol]0.40 mg/dLInvalid Interpretation Code0.0-1.0[place]WhatSalon Bilirubin Ql (U)NegativeInvalid Interpretation Code NegativeNewfieldWhatSalon Calcium [Mass/Vol]10.20 mg/dLInvalid Interpretation Code8.5-10.8Bskagit valley hospitalSquid Facil Chloride [Moles/Vol]99.0 mmol/LInvalid Interpretation Lkyz317-747XggorxqxlWhatSalon Cholesterol [Mass/Vol]212.0 mg/dLInvalid Interpretation Code0-200[place]WhatSalon Cholesterol in HDL [Mass/Vol]49.0 mg/dLInvalid Interpretation Wsta19-828ZgubdvojrHuddleApp Cholesterol in LDL [Mass/Vol]135.0 mg/dLInvalid Interpretation Code0-130[place]WhatSalon Cholesterol in VLDL [Mass/Vol]28.0 mg/dLInvalid Interpretation Code0-39[employer] Cholesterol.total/Cholesterol in HDL [Mass ratio]4 {ratio}Invalid Interpretation CodeNewfieldOM Latam [facility] CO2 [Moles/Vol]26.0 mmol/LInvalid Interpretation Code 23-30[place]OM [place] [facility] Creatinine (U) [Mass/Vol]75.30 mg/dLInvalid Interpretation CodeNot Estab. mg/dLBbucyrus community hospital Hell[employer] [facility] Creatinine [Mass/Vol]1.10 mg/dLInvalid Interpretation Code0.5-1.5Bbucy[facility] hospital [employer] [facility] Glucose [Mass/Vol]111.0 mg/dLInvalid Interpretation Fbnp26-589VhjejjimgOM Latam [facility] Ketones Ql (U)NegativeInvalid Interpretation Code NegativeNewfieldOM Latam [facility] pH (U)6 [pH]Invalid Interpretation Code5.0-9.0[place] [facility] Potassium [Moles/Vol]4.70 mmol/LInvalid Interpretation Code3.5-5.3Bskagit valley hospitalSquid Facil Prostate specific Ag [Mass/Vol]0.94 ng/mLInvalid Interpretation Code0.00-4.00[place] [facility] Protein [Mass/Vol]7.80 g/dLInvalid Interpretation Code 6.3-7.9Bskagit valley hospitalNext New Networks [facility] Sodium [Moles/Vol]136.0 mmol/LInvalid Interpretation Jizc635-464KsmxnbgtzWhatSalon Specific gravity (U) [Rel density]1.015Invalid Interpretation Code1.003-1.030[place]WhatSalon Triglyceride [Mass/Vol]141.0 mg/dLInvalid Interpretation Ffom68-038QqotxeaxbWhatSalon Urea nitrogen [Mass/Vol]20.0 mg/dLInvalid Interpretation Code7-25[place]fieldWhatSalon Urea nitrogen/Creatinine [Mass ratio]18 mg/mgInvalid Interpretation Code6-20NewfieldWhatSalon Urobilinogen (U) [Mass/Vol]normalInvalid Interpretation CodenormalNewfieldOM Latam [facility] Laboratory - Hematology and Cell countson 01-25-2023 Erythrocyte distribution width (RBC) [Ratio]12.10 %Invalid Interpretation Code 11.5-15.5[facility] [employer] HbA1c (Bld) [Mass fraction]6.60 %Invalid Interpretation Code4.3-6.3[facility] [employer] Hematocrit (Bld) [Volume fraction]43.70 %Invalid Interpretation Code37.8-51.0[place] Hemoglobin (Bld) [Mass/Vol]14.90 g/dLInvalid Interpretation Code12.6-17.0[place] Hemoglobin Ql (U)NegativeInvalid Interpretation Code NegativeNewfieldWhatSalon MCH (RBC) [Entitic mass]32.50 pgInvalid Interpretation Code25.7-33.8Bskagit valley hospitalSquid Facil MCHC (RBC) [Mass/Vol]34.10 g/dLInvalid Interpretation Code32.0-36.0[place]What[facility] MCV (RBC) [Entitic vol]95.40 fLInvalid Interpretation Code81.0-100.2[facility] satelliteRapt Platelet mean volume (Bld) [Entitic vol]9.20 fLInvalid Interpretation Code8.3-11.5Bskagit valley hospitalSquid Facil Platelets (Bld) [#/Vol]225.0 10*3/uLInvalid Interpretation Lqqg856-250Iykiyvlan [place] [employer] [facility] RBC (Bld) [#/Vol]4.580 10*6/uLInvalid Interpretation Code4.34-5.61[facility] [employer] [facility] WBC (Bld) [#/Vol]8.0 10*3/uLInvalid Interpretation Code 3.9-10.3[facility] [employer] Laboratory - Specimen informationon [id number] (U)ClearInvalid Interpretation CodeClearBMarietta Osteopathic Clinic [employer] Color (U)yellowInvalid Interpretation Codeyellow [facility] [employer] [facility] Laboratory - Urinalysison 30-15-7559Gdlseli Test strip (U) [Mass/Vol]4+Invalid Interpretation CodeNegativeAultman Hospital [employer] Leukocyte esterase Test strip Ql (U)NegativeInvalid Interpretation CodeNegativeAultman Hospital [employer] Nitrite Ql (U)NegativeInvalid Interpretation Code NegativeAultman Hospital [employer] Protein Ql (U)NegativeInvalid Interpretation Code NegativeAultman Hospital [employer] No Panel Informationon [id number] Interpretation CodeAultman Hospital [employer] 143.0 mg/dLInvalid Interpretation CodeLivingston [employer]ot[employer] [facility] No Panel Informationon 42-01-8228Sodlany smoking status Current Tobacco UserInvalid Interpretation CodeNewfieldOM Latam [facility] Laboratory - Chemistry and Chemistry - challengeon [id number]-ayiygzkshldqxn D3 [Mass/Vol]26.8 ng/mLInvalid Interpretation Code 30.0-100.0[place] Albumin (U) [Mass/Vol]< 12.0Invalid Interpretation Code < 17.0 ug/mLNewfieldWhatSalon Albumin [Mass/Vol]4.50 g/dLInvalid Interpretation Code 3.7-5.0[place] Albumin/Globulin [Mass ratio]1.3 {ratio}Invalid Interpretation Code1.0-2.4Bskagit valley hospitalSqu[facility]il ALP [Catalytic activity/Vol]74.0 U/LInvalid Interpretation Nvnw95-513GqjcrtimkWhatSalon ALT [Catalytic activity/Vol]24.0 U/LInvalid Interpretation Code0-50[place] Anion gap [Moles/Vol]16 mmol/LInvalid Interpretation Woin09-29YjqrbrfhvWhatSalon AST [Catalytic activity/Vol]14.0 U/LInvalid Interpretation Code0-40[place] Bilirubin [Mass/Vol]0.30 mg/dLInvalid Interpretation Code0.0-1.0[place] Bilirubin Ql (U)NegativeInvalid Interpretation Code NegativeNewfieldWhatSalon Calcium [Mass/Vol]10.20 mg/dLInvalid Interpretation Code8.5-10.8Bskagit valley hospitalSqu[facility] Facil Chloride [Moles/Vol]96.0 mmol/LInvalid Interpretation Klsc360-219ZupyjdujnWhatSalon Cholesterol [Mass/Vol]218.0 mg/dLInvalid Interpretation Code0-200[place] Cholesterol in HDL [Mass/Vol]41.0 mg/dLInvalid Interpretation Gmkr21-947Wqgitmzfc [employer] Cholesterol in LDL [Mass/Vol]139.0 mg/dLInvalid Interpretation Code0-130[facility] Cholesterol in VLDL [Mass/Vol]38.0 mg/dLInvalid Interpretation Code0-39[place] [employer] [facility] Cholesterol.total/Cholesterol in HDL [Mass ratio]5 {ratio}Invalid Interpretation CodeNewfieldOM Latam [facility] CO2 [Moles/Vol]26.0 mmol/LInvalid Interpretation Code 23-30[place] [employer] [facility] Creatinine (U) [Mass/Vol]41.10 mg/dLInvalid Interpretation CodeNot Estab. mg/dLBbucyrus community hospital Hellot[employer] [facility] Creatinine [Mass/Vol]1.0 mg/dLInvalid Interpretation Code0.5-1.5[facility] [employer] [facility] GFR/1.73 sq M.predicted among non-blacks MDRD (S/P/Bld) [Vol rate/Area]77 mL/min/{1.73_m2}Invalid Interpretation CodeNewfieldOM Lat[place] [facility] Glucose [Mass/Vol]134.0 mg/dLInvalid Interpretation Pler68-532KexkwkqewOM [place] [facility] Ketones Ql (U)NegativeInvalid Interpretation Code NegativeNewfieldOM Latam [facility] Parathyrin.intact [Mass/Vol]24 pg/mLInvalid Interpretation Wugr68-58JzpzfyxpwWhatSalon pH (U)6.5 [pH]Invalid Interpretation Code5.0-9.0 [place] [employer] Phosphate [Mass/Vol]3.60 mg/dLInvalid Interpretation Code2.5-4.5BMarietta [facility] [place] [facility] Potassium [Moles/Vol]4.60 mmol/LInvalid Interpretation Code3.5-5.3[facility] Protein [Mass/Vol]7.90 g/dLInvalid Interpretation Code 6.3-7.9[facility] Sodium [Moles/Vol]133.0 mmol/LInvalid Interpretation Pftt775-595ImzuosicwBarney [facility] Specific gravity (U) [Rel density]1.005Invalid Interpretation Code1.003-1.030[facility] Triglyceride [Mass/Vol]190.0 mg/dLInvalid Interpretation Nttt51-564Sjfzocrnn [place] [facility] Urea nitrogen [Mass/Vol]23.0 mg/dLInvalid Interpretation Code7-25[facility] [employer] Urea nitrogen/Creatinine [Mass ratio]23 mg/mgInvalid Interpretation Code6-20[facility] [employer] [facility] Urobilinogen (U) [Mass/Vol]normalInvalid Interpretation CodenormalAultman Hospital [place] [facility] Laboratory - Hematology and Cell countson 07-27-2022 HbA1c (Bld) [Mass fraction]6.70 %Invalid Interpretation Code4.3-6.3BM[facility] [place] [facility] Hemoglobin Ql (U)NegativeInvalid Interpretation Code NegativeAultman Hospital [employer] Laboratory - Specimen informationon [id number] (U)clearInvalid Interpretation CodeClearBMarietta Osteopathic Clinic [employer] Color (U)yellowInvalid Interpretation Codeyellow [facility] Laboratory - Urinalysison 78-97-8388Zlbuyoh Test strip (U) [Mass/Vol]4+Invalid Interpretation CodeNegativeNewfieldWhatSalon Leukocyte esterase Test strip Ql (U)NegativeInvalid Interpretation CodeNegativeNewfieldWhatSalon Nitrite Ql (U)NegativeInvalid Interpretation Code NegativeNewfieldWhatSalon Protein Ql (U)NegativeInvalid Interpretation Code NegativeNewfieldWhatSalon No Panel Informationon 36-53-4711Mwvr mass index (BMI) [Percentile] Per age and sex0.1 {percentile}Invalid Interpretation CodeNewfieldWhatSalon 976-1066Tpxncz-jbc-length Per age and sex0.1 {percentile} Invalid Interpretation CodeNewfieldWhatSalon 146.0 mg/dLInvalid Interpretation CodeNewfieldWhatSalon Patient did NOT bring meterInvalid Interpretation Code 70-117[place] Laboratory - Chemistry and Chemistry - challengeon [id number] (U) [Mass/Vol]17.1Invalid Interpretation Code<17.0[place] Albumin [Mass/Vol]4.80 g/dLInvalid Interpretation Code 3.7-5.0[place] Albumin/Creatinine DL <= 20 mg/L (U) [Mass ratio]26.8 mg/gInvalid Interpretation Code0.0-30.0[place] Albumin/Globulin [Mass ratio]1.7 {ratio}Invalid Interpretation Code1.0-2.4[facility] [employer] ALP [Catalytic activity/Vol]65.0 U/LInvalid Interpretation Ntcy51-985UagruqchkWhatSalon ALT [Catalytic activity/Vol]51.0 U/LInvalid Interpretation Code0-50[facility] [employer] Anion gap [Moles/Vol]13 mmol/LInvalid Interpretation Hhmy26-08Ufmbuazgg [place] [employer] AST [Catalytic activity/Vol]30.0 U/LInvalid Interpretation Code0-40[facility] [employer] Bilirubin [Mass/Vol]0.50 mg/dLInvalid Interpretation Code0.0-1.0[place] [employer] [facility] Calcium [Mass/Vol]10.80 mg/dLInvalid Interpretation Code8.5-10.8BMari[facility] [employer] Chloride [Moles/Vol]99.0 mmol/LInvalid Interpretation Rpuy270-968Aqhiguqwx [place] [employer] Cholesterol [Mass/Vol]214.0 mg/dLInvalid Interpretation Code0-200[place] [employer] [facility] Cholesterol in HDL [Mass/Vol]57.0 mg/dLInvalid Interpretation Mdgx18-502KmenjjeghOM [place] [facility] Cholesterol in LDL [Mass/Vol]133.0 mg/dLInvalid Interpretation Code0-130NewfieldOM [place] [facility] Cholesterol in VLDL [Mass/Vol]24.0 mg/dLInvalid Interpretation Code0-39[place] [employer] [facility] Cholesterol.total/Cholesterol in HDL [Mass ratio]4 {ratio}Invalid Interpretation CodeNewfieldOM [place] [facility] CO2 [Moles/Vol]30.0 mmol/LInvalid Interpretation Code 23-30NewfieldOM [place] [facility] Creatinine (U) [Mass/Vol]63.80 mg/dLInvalid Interpretation CodeNot Estab. mg/dLBbucyrus community hospital [employer] Creatinine [Mass/Vol]1.10 mg/dLInvalid Interpretation Code0.5-1.5Bskagit valley hospitalSqu[facility] Facil GFR/1.73 sq M.predicted among non-blacks MDRD (S/P/Bld) [Vol rate/Area]69 mL/min/{1.73_m2}Invalid Interpretation CodeBlconey island hospitalWhatSalon Glucose [Mass/Vol]128.0 mg/dLInvalid Interpretation Vqfw49-719CfxklpvtoWhatSalon Potassium [Moles/Vol]4.60 mmol/LInvalid Interpretation Code3.5-5.3Bskagit valley hospitalSqu[facility] Facil Prostate specific Ag [Mass/Vol]0.85 ng/mLInvalid Interpretation Code0.00-4.00NewfieldOM [place] [facility] Protein [Mass/Vol]7.60 g/dLInvalid Interpretation Code 6.3-7.9[facility] satelliteRapt Sodium [Moles/Vol]137.0 mmol/LInvalid Interpretation Gldj153-496YzrmexfblWhatSalon Triglyceride [Mass/Vol]120.0 mg/dLInvalid Interpretation Slhd52-497EvtzspnvzOM [place] [facility] Urea nitrogen [Mass/Vol]16.0 mg/dLInvalid Interpretation Code7-25[place] Urea nitrogen/Creatinine [Mass ratio]15 mg/mgInvalid Interpretation Code6-20[employer] Laboratory - Hematology and Cell countson 02-17-2022 HbA1c (Bld) [Mass fraction]6.50 %Invalid Interpretation Code4.3-6.3[facility] satelliteRapt No Panel Informationon 11-03-4609630.0 mg/dLInvalid Interpretation CodeNewfieldWhatSalon Laboratory - Chemistry and Chemistry - challengeon [id number] (U) [Mass/Vol]< 12.0Invalid Interpretation Code< 17.0 ug/mL [facility] [employer] Albumin [Mass/Vol]4.70 g/dLInvalid Interpretation Code 3.7-5.0[place] Albumin/Globulin [Mass ratio]1.6 {ratio}Invalid Interpretation Code1.0-2.4[facility] [employer] ALP [Catalytic activity/Vol]66.0 U/LInvalid Interpretation Msnc27-521RquflwcssWhatSalon ALT [Catalytic activity/Vol]38.0 U/LInvalid Interpretation Code0-50[place] Anion gap [Moles/Vol]15 mmol/LInvalid Interpretation Psbg01-19WyflflqbwWhatSalon AST [Catalytic activity/Vol]23.0 U/LInvalid Interpretation Code0-40[place] Bilirubin [Mass/Vol]0.40 mg/dLInvalid Interpretation Code0.0-1.0New[place]OM [place] [facility] Bilirubin Ql (U)NegativeInvalid Interpretation Code NegativeNewfieldOM Lat[place] [facility] Calcium [Mass/Vol]10.40 mg/dLInvalid Interpretation Code8.5-10.8[facility] [employer] Chloride [Moles/Vol]101.0 mmol/LInvalid Interpretation Uxpz954-925CnttdzcohWhatSalon CO2 [Moles/Vol]28.0 mmol/LInvalid Interpretation Code 23-30[facility] [employer] [facility] Creatinine (U) [Mass/Vol]60.60 mg/dLInvalid Interpretation CodeNot Estab. mg/dLBMarietta Osteopathic Clinic [employer] Creatinine [Mass/Vol]1.10 mg/dLInvalid Interpretation Code0.5-1.5BMari[facility] [employer] Gamma glutamyl transferase [Catalytic activity/Vol]62 U/LInvalid Interpretation Code7-51[place] [employer] [facility] GFR/1.73 sq M.predicted among non-blacks MDRD (S/P/Bld) [Vol rate/Area]69 mL/min/{1.73_m2}Invalid Interpretation CodeAultman Hospital [facility] Glucose [Mass/Vol]116.0 mg/dLInvalid Interpretation Zxgr52-235Ovnqkmzju [place] [employer] Ketones Ql (U)1+Invalid Interpretation CodeNegative [facility] [employer] pH (U)6 [pH]Invalid Interpretation Code5.0-9.0[place] [employer] [facility] Potassium [Moles/Vol]4.80 mmol/LInvalid Interpretation Code3.5-5.3[facility] [employer] [facility] Protein [Mass/Vol]7.70 g/dLInvalid Interpretation Code 6.3-7.9[facility] [employer] [facility] Sodium [Moles/Vol]139.0 mmol/LInvalid Interpretation Pjkd800-894ZlcexsaevOM [place] [facility] Specific gravity (U) [Rel density]1.010Invalid Interpretation Code1.003-1.030[place] [employer] [facility] Urea nitrogen [Mass/Vol]17.0 mg/dLInvalid Interpretation Code7-25NewfieldOM [place] [facility] Urea nitrogen/Creatinine [Mass ratio]15 mg/mgInvalid Interpretation Code6-20NewfieldOM [place] [facility] Urobilinogen (U) [Mass/Vol]normalInvalid Interpretation CodenormalAultman Hospital [facility] Laboratory - Hematology and Cell countson 01-15-2022 Erythrocyte distribution width (RBC) [Ratio]12.50 %Invalid Interpretation Code 11.5-15.5[facility] [employer] [facility] HbA1c (Bld) [Mass fraction]6.60 %Invalid Interpretation Code4.3-6.3[facility] [employer] [facility] Hematocrit (Bld) [Volume fraction]49.80 %Invalid Interpretation Code37.8-51.0NewfieldOM [place] [facility] Hemoglobin (Bld) [Mass/Vol]16.40 g/dLInvalid Interpretation Code12.6-17.0NewfieldOM [place] [facility] Hemoglobin Ql (U)NegativeInvalid Interpretation Code NegativeNewfieldOM [place] [facility] MCH (RBC) [Entitic mass]31.90 pgInvalid Interpretation Code25.7-33.8Bskagit valley hospitalNext [employer] [facility] MCHC (RBC) [Mass/Vol]32.90 g/dLInvalid Interpretation Code32.0-36.0NewfieldOM [place] [facility] MCV (RBC) [Entitic vol]96.90 fLInvalid Interpretation Code81.0-100.2Bskagit valley hospitalSquid Facil Platelet mean volume (Bld) [Entitic vol]9.30 fLInvalid Interpretation Code8.3-11.5Bskagit valley hospitalSquid Facil Platelets (Bld) [#/Vol]216.0 10*3/uLInvalid Interpretation Kwts636-979Qghivmnlt [place] [employer] RBC (Bld) [#/Vol]5.140 10*6/uLInvalid Interpretation Code4.34-5.61[facility] [employer] [facility] WBC (Bld) [#/Vol]7.30 10*3/uLInvalid Interpretation Code3.9-10.3BMarietta [facility] [employer] Laboratory - Specimen informationon 20-55-5349Dtjrtyf (U)clearInvalid Interpretation CodeClearBMarietta Osteopathic Clinic [employer] [facility] Color (U)yellowInvalid Interpretation Codeyellow [facility] [employer] [facility] Laboratory - Urinalysison 27-75-4651Dnrmrwd Test strip (U) [Mass/Vol]4+Invalid Interpretation CodeNegativeAultman Hospital [employer] Leukocyte esterase Test strip Ql (U)NegativeInvalid Interpretation CodeNegativeAultman Hospital [employer] Nitrite Ql (U)NegativeInvalid Interpretation Code NegativeAultman Hospital [employer] Protein Ql (U)NegativeInvalid Interpretation Code NegativeAultman Hospital [employer] [facility] No Panel Informationon 62-80-4097265.0 mg/dLInvalid Interpretation CodeAultman Hospital [facility] Glucose Meter Check NOT PerformedInvalid Interpretation Smhz14-438Cnnvttboi [employer] [facility] Laboratory - Chemistry and Chemistry - challengeon [id number] [Mass/Vol]4.70 g/dLInvalid Interpretation Code3.7-5.0[place] [employer] [facility] Albumin/Globulin [Mass ratio]1.7 {ratio}Invalid Interpretation Code1.0-2.4[facility] [employer] [facility] ALP [Catalytic activity/Vol]62.0 U/LInvalid Interpretation Hjhp10-546Urootjuxx [employer] ALT [Catalytic activity/Vol]57.0 U/LInvalid Interpretation Code0-50[place] [employer] Anion gap [Moles/Vol]16 mmol/LInvalid Interpretation Fvxz73-58Paggreyta [employer] AST [Catalytic activity/Vol]33.0 U/LInvalid Interpretation Code0-40[place] Bilirubin [Mass/Vol]0.40 mg/dLInvalid Interpretation Code0.0-1.0[place] Calcium [Mass/Vol]10.20 mg/dLInvalid Interpretation Code8.5-10.8[facility] [employer] Chloride [Moles/Vol]99.0 mmol/LInvalid Interpretation Vibu306-563AjopiqtqvWhatSalon Cholesterol [Mass/Vol]217.0 mg/dLInvalid Interpretation Code0-200[place] Cholesterol in HDL [Mass/Vol]49.0 mg/dLInvalid Interpretation Mljx81-138IkffjqnciWhatSalon Cholesterol in LDL [Mass/Vol]131.0 mg/dLInvalid Interpretation Code0-130[place] Cholesterol in VLDL [Mass/Vol]37.0 mg/dLInvalid Interpretation Code0-39[place] Cholesterol.total/Cholesterol in HDL [Mass ratio]4 {ratio}Invalid Interpretation CodeNewfieldWhatSalon CO2 [Moles/Vol]28.0 mmol/LInvalid Interpretation Code 23-30[place]What[facility] Creatinine [Mass/Vol]1.10 mg/dLInvalid Interpretation Code0.5-1.5Bskagit valley hospitalNext [employer] [facility] Gamma glutamyl transferase [Catalytic activity/Vol]98 U/LInvalid Interpretation Code7-51[place] [employer] [facility] GFR/1.73 sq M.predicted among non-blacks MDRD (S/P/Bld) [Vol rate/Area]69 mL/min/{1.73_m2}Invalid Interpretation CodeNewfieldOM [place] [facility] Glucose [Mass/Vol]127.0 mg/dLInvalid Interpretation Icbu70-788UtfamieogOM [place] [facility] Potassium [Moles/Vol]4.40 mmol/LInvalid Interpretation Code3.5-5.3[facility] [employer] [facility] Protein [Mass/Vol]7.50 g/dLInvalid Interpretation Code 6.3-7.9Bskagit valley hospitalNext [employer] [facility] Sodium [Moles/Vol]139.0 mmol/LInvalid Interpretation Jjgm351-916YohmagyxzOM [place] [facility] Triglyceride [Mass/Vol]186.0 mg/dLInvalid Interpretation Blpd59-260UfsjavnqiOM [place] [facility] Urea nitrogen [Mass/Vol]19.0 mg/dLInvalid Interpretation Code7-25NewfieldOM [place] [facility] Urea nitrogen/Creatinine [Mass ratio]17 mg/mgInvalid Interpretation Code6-20[place]WhatSalon Laboratory - Hematology and Cell countson 08-18-2021 Erythrocyte distribution width (RBC) [Ratio]12.60 %Invalid Interpretation Code 11.5-15.5[facility] satellitePaintZen [facility] HbA1c (Bld) [Mass fraction]6.20 %Invalid Interpretation Code4.3-6.3BMarietta [facility] [place] [facility] Hematocrit (Bld) [Volume fraction]48.40 %Invalid Interpretation Code37.8-51.0[facility] [place] [facility] Hemoglobin (Bld) [Mass/Vol]16.10 g/dLInvalid Interpretation Code12.6-17.0[facility] [place] [facility] MCH (RBC) [Entitic mass]32.40 pgInvalid Interpretation Code25.7-33.8BMarietta [facility] [place] [facility] MCHC (RBC) [Mass/Vol]33.30 g/dLInvalid Interpretation Code32.0-36.0[facility] [place] [facility] MCV (RBC) [Entitic vol]97.40 fLInvalid Interpretation Code81.0-100.2BMarietta [facility] [place] [facility] Platelet mean volume (Bld) [Entitic vol]10.10 fLInvalid Interpretation Code8.3-11.5BMari[facility] [employer] [facility] Platelets (Bld) [#/Vol]214.0 10*3/uLInvalid Interpretation Vyml734-723Eukaikarw [place] [employer] RBC (Bld) [#/Vol]4.970 10*6/uLInvalid Interpretation Code4.34-5.61[facility] [place] [facility] WBC (Bld) [#/Vol]5.90 10*3/uLInvalid Interpretation Code3.9-10.3BMarietta [facility] [employer] No Panel Informationon 60-78-2941892.0 mg/dLInvalid Interpretation CodeAultman Hospital [employer] No Specimen, Unable to VoidInvalid Interpretation Code [facility] No Panel Informationon [id number] Retinal Eye ExamInvalid Interpretation CodeHuddleApp Laboratory - Chemistry and Chemistry - challengeon [id number] [Mass/Vol]4.60 g/dLInvalid Interpretation Code3.7-4.5BDocASAP Albumin/Globulin [Mass ratio]1.4 {ratio}Invalid Interpretation Code1.0-2.4[facility] satelliteRapt ALP [Catalytic activity/Vol]75.0 U/LInvalid Interpretation Skyo60-902EjmzbidsqHuddleApp ALT [Catalytic activity/Vol]41.0 U/LInvalid Interpretation Code0-50[employer] Anion gap [Moles/Vol]14 mmol/LInvalid Interpretation Aqoi25-34PvaiuwgeyHuddleApp AST [Catalytic activity/Vol]26.0 U/LInvalid Interpretation Code0-40[employer] Bilirubin [Mass/Vol]0.40 mg/dLInvalid Interpretation Code0.0-1.0[employer] Bilirubin Ql (U)NegativeInvalid Interpretation Code NegativeHuddleApp Calcium [Mass/Vol]10.10 mg/dLInvalid Interpretation Code8.5-10.8BDocASAP Chloride [Moles/Vol]99.0 mmol/LInvalid Interpretation Qinn810-787TacjzprdaPhonezoo Communications CO2 [Moles/Vol]28.0 mmol/LInvalid Interpretation Code 23-30[employer] Creatinine [Mass/Vol]0.90 mg/dLInvalid Interpretation Code0.5-1.5BDocASAP GFR/1.73 sq M.predicted among non-blacks MDRD (S/P/Bld) [Vol rate/Area]87 mL/min/{1.73_m2}Invalid Interpretation CodeAultman Hospital [facility] Glucose [Mass/Vol]135.0 mg/dLInvalid Interpretation Txbd66-923Pigihftjb [employer] Ketones Ql (U)NegativeInvalid Interpretation Code NegativeLivingston Hellotravel [facility] Parathyrin.intact [Mass/Vol]22 pg/mLInvalid Interpretation Tkgj18-60LplyisvqmWhatSalon pH (U)6 [pH]Invalid Interpretation Code5.0-9.0[place] [employer] [facility] Phosphate [Mass/Vol]3.50 mg/dLInvalid Interpretation Code2.5-4.5[facility] Hell[employer] [facility] Potassium [Moles/Vol]4.50 mmol/LInvalid Interpretation Code3.5-5.3[facility] [employer] Protein [Mass/Vol]7.80 g/dLInvalid Interpretation Code 6.3-7.9[facility] [employer] [facility] Sodium [Moles/Vol]136.0 mmol/LInvalid Interpretation Quqo519-538TzwukcfeeOM [place]am [facility] Specific gravity (U) [Rel density]1.015Invalid Interpretation Code1.003-1.030[place]WhatSalon Urea nitrogen [Mass/Vol]15.0 mg/dLInvalid Interpretation Code7-25[place]WhatSalon Urea nitrogen/Creatinine [Mass ratio]17 mg/mgInvalid Interpretation Code6-20[place]WhatSalon Urobilinogen (U) [Mass/Vol]normalInvalid Interpretation CodenormalNewfieldOM Latam [facility] Laboratory - Hematology and Cell countson 03-19-2021 Erythrocyte distribution width (RBC) [Ratio]12.80 %Invalid Interpretation Code 11.5-15.5Bskagit valley hospitalSquid Facil HbA1c (Bld) [Mass fraction]6.40 %Invalid Interpretation Code4.3-6.3[facility] Hellotravel [facility] Hematocrit (Bld) [Volume fraction]49.0 %Invalid Interpretation Code37.8-51.0[place]WhatSalon Hemoglobin (Bld) [Mass/Vol]16.60 g/dLInvalid Interpretation Code12.6-17.0[place]WhatSalon Hemoglobin Ql (U)NegativeInvalid Interpretation Code NegativeNewfieldOM Latam [facility] MCH (RBC) [Entitic mass]32.10 pgInvalid Interpretation Code25.7-33.8[facility] satelliteRapt MCHC (RBC) [Mass/Vol]33.90 g/dLInvalid Interpretation Code32.0-36.0NewfieldOM [place] [facility] MCV (RBC) [Entitic vol]94.80 fLInvalid Interpretation Code81.0-100.2[facility] satellitePaintZen [facility] Platelet mean volume (Bld) [Entitic vol]9.60 fLInvalid Interpretation Code8.3-11.5BDocASAP Platelets (Bld) [#/Vol]257.0 10*3/uLInvalid Interpretation Hcmd493-687RquxkyteqWhatSalon RBC (Bld) [#/Vol]5.170 10*6/uLInvalid Interpretation Code4.34-5.61BlHuddleApp WBC (Bld) [#/Vol]6.90 10*3/uLInvalid Interpretation Code3.9-10.3BMarietta [facility] Brandkids [facility] Laboratory - Specimen informationon 19-95-9707Bqlkaft (U)clearInvalid Interpretation CodeClearBMarietta Osteopathic Clinic [employer]kids [facility] Color (U)yellowInvalid Interpretation Codeyellow [facility] [employer] [facility] Laboratory - Urinalysison 55-20-5061Moyfnqz Test strip (U) [Mass/Vol]4+Invalid Interpretation CodeNegativeAultman Hospital Brandkids [facility] Leukocyte esterase Test strip Ql (U)NegativeInvalid Interpretation CodeNegativeAultman Hospital Brandkids [facility] Nitrite Ql (U)NegativeInvalid Interpretation Code NegativeAultman Hospital Brandkids [facility] Protein Ql (U)NegativeInvalid Interpretation Code NegativeNewfieldGreen Dot Corporation [place] [employer]kids [facility] No Panel Informationon 86-39-5561325.0 mg/dLInvalid Interpretation CodeNewfieldOM Latam [facility] patient's meter broke and doesn't have new one yet Invalid Interpretation Xfjp27-801Nrwpsoysb [place] [employer] [facility] Laboratory - Chemistry and Chemistry - challengeon 39-67-9935Tkkejcd (U) [Mass/Vol]< 12.0Invalid Interpretation Code< 17.0 ug/mL [place] [employer] [facility] Albumin [Mass/Vol]4.40 g/dLInvalid Interpretation Code 3.7-4.5[facility] [employer] [facility] Albumin/Globulin [Mass ratio]1.5 {ratio}Invalid Interpretation Code1.0-2.4[facility] [employer] [facility] ALP [Catalytic activity/Vol]69.0 U/LInvalid Interpretation Ebyp11-640Tkuvcxanw [employer] ALT [Catalytic activity/Vol]30.0 U/LInvalid Interpretation Code0-50[place] [employer] Anion gap [Moles/Vol]13 mmol/LInvalid Interpretation Fqvk92-56Rnwfhrkac [employer] AST [Catalytic activity/Vol]20.0 U/LInvalid Interpretation Code0-40[place] [employer] Bilirubin [Mass/Vol]0.40 mg/dLInvalid Interpretation Code0.0-1.0NewfieldOM [place] [facility] Bilirubin Ql (U)NegativeInvalid Interpretation Code NegativeNewfieldOM Latam [facility] Calcium [Mass/Vol]9.80 mg/dLInvalid Interpretation Code 8.5-10.8[facility] [employer] [facility] Chloride [Moles/Vol]98.0 mmol/LInvalid Interpretation Fshj139-322IqimnkmloWhatSalon Cholesterol [Mass/Vol]207.0 mg/dLInvalid Interpretation Code0-200NewfieldOM Latam [facility] Cholesterol in HDL [Mass/Vol]40.0 mg/dLInvalid Interpretation Xxtm47-850QymoeniteOM [place] [facility] Cholesterol in LDL [Mass/Vol]100.0 mg/dLInvalid Interpretation Code0-130[place]WhatSalon Cholesterol in VLDL [Mass/Vol]67.0 mg/dLInvalid Interpretation Code0-39[place]WhatSalon Cholesterol.total/Cholesterol in HDL [Mass ratio]5 {ratio}Invalid Interpretation CodeNewfieldWhatSalon CO2 [Moles/Vol]29.0 mmol/LInvalid Interpretation Code 23-30NewfieldOM Latam [facility] Creatinine (U) [Mass/Vol]31.90 mg/dLInvalid Interpretation CodeNot Estab. mg/dLBbucyrus community hospital Hellotravel [facility] Creatinine [Mass/Vol]1.0 mg/dLInvalid Interpretation Code0.5-1.5[facility] [employer] [facility] GFR/1.73 sq M.predicted among non-blacks MDRD (S/P/Bld) [Vol rate/Area]77 mL/min/{1.73_m2}Invalid Interpretation CodeNewfieldWhatSalon Glucose [Mass/Vol]113.0 mg/dLInvalid Interpretation Wewg18-334DiciaskqkWhatSalon Ketones Ql (U)NegativeInvalid Interpretation Code NegativeNewfieldWhatSalon pH (U)6 [pH]Invalid Interpretation Code5.0-9.0NewfieldOM [place] [facility] Potassium [Moles/Vol]4.40 mmol/LInvalid Interpretation Code3.5-5.3[facility] Hellot[employer] [facility] Prostate specific Ag [Mass/Vol]0.76 ng/mLInvalid Interpretation Code0.00-4.00NewfieldOM Latam [facility] Protein [Mass/Vol]7.30 g/dLInvalid Interpretation Code 6.3-7.9[facility] [employer] Sodium [Moles/Vol]136.0 mmol/LInvalid Interpretation Mwny528-659JbddescntWhatSalon Specific gravity (U) [Rel density]1.005Invalid Interpretation Code1.003-1.030[place]WhatSalon Triglyceride [Mass/Vol]334.0 mg/dLInvalid Interpretation Nrwd04-576Qpafoezse Hell[employer] [facility] Urea nitrogen [Mass/Vol]15.0 mg/dLInvalid Interpretation Code7-25[place] [employer] [facility] Urea nitrogen/Creatinine [Mass ratio]15 mg/mgInvalid Interpretation Code6-20[place] [employer] [facility] Urobilinogen (U) [Mass/Vol]normalInvalid Interpretation CodenormalLivingston Hellotravel [facility] Laboratory - Hematology and Cell countson 12-23-2020 Erythrocyte distribution width (RBC) [Ratio]12.90 %Invalid Interpretation Code 11.5-15.5[facility] [employer] [facility] HbA1c (Bld) [Mass fraction]6.30 %Invalid Interpretation Code4.3-6.3[facility] [employer] [facility] Hematocrit (Bld) [Volume fraction]48.0 %Invalid Interpretation Code37.8-51.0NewfieldOM [place] [facility] Hemoglobin (Bld) [Mass/Vol]16.40 g/dLInvalid Interpretation Code12.6-17.0NewfieldOM [place] [facility] Hemoglobin Ql (U)NegativeInvalid Interpretation Code NegativeNewfieldOM Latam [facility] MCH (RBC) [Entitic mass]32.20 pgInvalid Interpretation Code25.7-33.8Bskagit valley hospitalNext New Networks [facility] MCHC (RBC) [Mass/Vol]34.20 g/dLInvalid Interpretation Code32.0-36.0NewfieldOM [place] [facility] MCV (RBC) [Entitic vol]94.10 fLInvalid Interpretation Code81.0-100.2Bskagit valley hospitalSquid Facil Platelet mean volume (Bld) [Entitic vol]9.30 fLInvalid Interpretation Code8.3-11.5[facility] [employer] [facility] Platelets (Bld) [#/Vol]265.0 10*3/uLInvalid Interpretation Wdel396-857Aryuzeuwa [place] [employer] [facility] RBC (Bld) [#/Vol]5.10 10*6/uLInvalid Interpretation Code4.34-5.61[facility] [employer] [facility] WBC (Bld) [#/Vol]7.30 10*3/uLInvalid Interpretation Code3.9-10.3[facility] [employer] [facility] Laboratory - Specimen informationon 30-55-1650Jvqcgmo (U)clearInvalid Interpretation CodeClearBMarietta Osteopathic Clinic [employer]kids [facility] Collection time (Andrei) [Date/time]10:56 amInvalid Interpretation CodeLivingston Hellotravel [facility] Color (U)yellowInvalid Interpretation Codeyellow [facility] [employer] [facility] Laboratory - Urinalysison 80-97-7815Ndqmytv Test strip (U) [Mass/Vol]4+Invalid Interpretation CodeNegativeAultman Hospital [employer]kids [facility] Leukocyte esterase Test strip Ql (U)NegativeInvalid Interpretation CodeNegativeAultman Hospital [employer] [facility] Nitrite Ql (U)NegativeInvalid Interpretation Code NegativeLivingston Hellotravel [facility] Protein Ql (U)NegativeInvalid Interpretation Code NegativeNewfieldOM Latam [facility] No Panel Informationon 42-52-1315653.0 mg/dLInvalid Interpretation CodeNewfieldOM Latam [facility] Laboratory - Chemistry and Chemistry - challengeon 19-88-1455Xqcvdjz/Globulin [Mass ratio]1.2 {ratio}Invalid Interpretation Code 1.0-2.4[facility] satellitePaintZen [facility] Bilirubin Ql (U)NegativeInvalid Interpretation Code NegativeNewfieldWhatSalon Ketones Ql (U)NegativeInvalid Interpretation Code NegativeNewfieldWhatSalon Urobilinogen (U) [Mass/Vol]normalInvalid Interpretation CodenormalNewfieldOM Latam [facility] Laboratory - Urinalysison 56-38-4988Tnmdxxqcy esterase Test strip Ql (U)NegativeInvalid Interpretation CodeNegativeNewfieldOM Latam [facility] Nitrite Ql (U)NegativeInvalid Interpretation Code NegativeNewfieldOM Latam [facility] Protein Ql (U)NegativeInvalid Interpretation Code NegativeNewfieldOM Latam [facility] Metabolic Panelon 23-96-3870Pjgudbe [Mass/Vol]4.40 g/dL Invalid Interpretation Code3.7-4.5[facility] satellitePaintZen [facility] ALP [Catalytic activity/Vol]81.0 U/LInvalid Interpretation Fena36-372SmpzxctyuOM [place] [facility] ALT [Catalytic activity/Vol]57.0 U/LInvalid Interpretation Code0-50NewfieldOM [place]am [facility] Anion gap [Moles/Vol]13 mmol/LInvalid Interpretation Tqij78-60DzbevgrvpWhatSalon AST [Catalytic activity/Vol]36.0 U/LInvalid Interpretation Code0-40H[employer] Bilirubin [Mass/Vol]0.60 mg/dLInvalid Interpretation Code0.0-1.0[place]WhatSalon Calcium [Mass/Vol]11.0 mg/dLInvalid Interpretation Code 8.5-10.8BDocASAP Chloride [Moles/Vol]97.0 mmol/LInvalid Interpretation Xzli457-275OnzameqxhWhatSalon CO2 [Moles/Vol]27.0 mmol/LInvalid Interpretation Code 23-30[place]WhatSalon Creatinine [Mass/Vol]1.60 mg/dLInvalid Interpretation Code0.5-1.5BDocASAP GFR/1.73 sq M predicted among non-blacks MDRD (S/P/Bld) [Vol rate/Area]45 mL/min/{1.73_m2}Invalid Interpretation CodeNewfieldWhatSalon Glucose [Mass/Vol]148.0 mg/dLInvalid Interpretation Sbyf51-886WfyojhqebHuddleApp Glucose [Mass/Vol]Patient did not bring strips for exxwh76-731YpcvyduvaWhatSalon HbA1c (Bld) [Mass fraction]6.90 %Invalid Interpretation Code4.3-6.3BDocASAP Potassium [Moles/Vol]4.90 mmol/LInvalid Interpretation Code3.5-5.3BDocASAP Protein [Mass/Vol]8.20 g/dLInvalid Interpretation Code 6.3-7.9BDocASAP Sodium [Moles/Vol]132.0 mmol/LInvalid Interpretation Tsnj871-874IyilgrdwlHuddleApp Urea nitrogen [Mass/Vol]23.0 mg/dLInvalid Interpretation Code7-25[employer] Urea nitrogen/Creatinine [Mass ratio]14 mg/mgInvalid Interpretation Code6-20[employer] No Panel Informationon 75-51-5958Gdinyzj did not bring strips for meterInvalid Interpretation Setr69-317DrdvxqjydWhatSalon Otheron 46-04-4622Ouyjvwg/Globulin [Mass ratio]1.2 (calc)1.0-2.4[facility] [employer] Bilirubin Ql (U)NegativeNegativeLivingston [employer] Glucose Test strip (U) [Mass/Vol]4+Invalid Interpretation CodeNegativeNewfieldWhatSalon Hemoglobin Ql (U)TraceInvalid Interpretation Code NegativeNewfieldWhatSalon Nitrite Ql (U)NegativeNegUNC Health Rex Holly SpringsWhatSalon pH (U)5 [pH]Invalid Interpretation Code5.0-9.0[place]WhatSalon Protein Ql (U)NegativeNegativeNewfieldWhatSalon Urobilinogen Test strip (U) [Mass/Vol]normalnormal [place] [employer] 151.0 mg/dLInvalid Interpretation CodeNewfieldWhatSalon Urinalysison 22-42-4346Fopsajr (U)ClearInvalid Interpretation CodeClearBbucyrus community hospital [employer] Color (U)yellowInvalid Interpretation Codeyellow [place] [employer] Ketones Ql (U)NegativeNegativeNewfieldWhatSalon Leukocyte esterase Test strip Ql (U)NegativeNegative MonroeMarginLeft Specific gravity (U) [Rel density]1.015Invalid Interpretation Code1.003-1.030[place]WhatSalon Coding Summaryon 85-56-8915Dnyuah SummaryCODING DATE: 06/20/2020 [facility] STATUS: Home PAYOR: Medicare APC DESCRIPTION [...] By: Estefany Aguilera Date Saved: 06/20/2020 12:49 pmNCleveland Clinic Mentor HospitalCoding SummaryCODING DATE: 06/20/2020 [facility] STATUS: Home PAYOR: Medicare APC DESCRIPTION [...] By: Estefany Aguilera Date Saved: 06/20/2020 12:47 [facility].Auto Diff 1on 06-17-2020 Auto Burke %7 %Normal1-12[facility] HospitalComment on above:Performed By: #### [id number], 1703849, [id number], [id number], [id number] #### [facility] (DEFAULT) [address] [place] [address] 59299Udlm Abs#0.0 e98Kscyne8.0-0.2MKettering Health Washington TownshipComment on above:Performed By: #### 2890551, 5429547, 52561517, [id number], [id number] #### [facility] (DEFAULT) [address] [place] [address] 33870Gedaiydxf/100 WBC (Bld)0.5 %Normal0.2-2.0[facility] Comment on above:Performed By: #### 3073639, 9427514, 07610106, [id number], [id number] #### [facility] (DEFAULT) [address] [place] [address] 45783Jfh Abs#0.2 g77Oujyvc1.0-0.4[facility] HospitalComment on above:Performed By: #### 2274806, 2421340, 11775808, [id number], [id number] #### [facility] (DEFAULT) [address] [place] [address] 89265Prfjupwcpgs/100 WBC (Bld)2.3 %Normal0.9-4.0[facility] HospitalComment on above:Performed By: #### 8281468, 2940627, 39400264, [id number], [id number] #### [facility] (DEFAULT) [address] [place] [address] 37916Guqtveigayy (Bld) [#/Vol]2.3 c98Tkevay1.3-2.9[facility] HospitalComment on above:Performed By: #### 1143158, 1534061, 22533057, [id number], [id number] #### [facility] (DEFAULT) [address] [place] [address] 22125Irsjounwhzp/100 WBC (Bld)25 %Rgulrz99-55Tnfikjwv Hospital Comment on above:Performed By: #### 6223728, 0511601, 41650335, [id number], [id number] #### [facility] (DEFAULT) [address] [place] [address] 13181Ijou Abs#0.7 d41Fdxjhl6.0-0.8[facility] HospitalComment on above:Performed By: #### 6412953, 5640646, 59291682, [id number], [id number] #### [facility] (DEFAULT) [address] [place] [address] 26016Qtlb Abs#6.0 g64Odeool4.5-9.2Mohio[facility] hospital HospitalComment on above:Performed By: #### 2392171, 6922934, 38011804, [id number], [id number] #### [facility] (DEFAULT) [address] [place] [address] 71933Wlcfdjpbtpa/100 WBC (Bld)65 %Qasish83-82Hwocmxvv Hospital Comment on above:Performed By: #### 5268425, 1450288, 72304418, [id number], [id number] #### [facility] (DEFAULT) [address] [place] [address] 10352.QC Respiratory Panel 2.1 (BioFire)on 26-52-1758Hwcchfkn Control-Resp Panel 2.1(BioFire)PassOhioHealth Van Wert HospitalComment on above:Order Comment: Ordered by Discern. [[email or web address]]Performed By: #### [id number] #### [facility] (DEFAULT) [address] [place] [address] 52206GHX w/ Auto Diffon 32-27-5911Dhehbmdkqqv distribution width (RBC) [Ratio]12.9 %Acgmbn60.5-15.0[facility] HospitalComment on above: Performed By: #### [id number], 1371100, 92251300, [id number], [id number] #### [facility] (DEFAULT) [address] [place] [address] 15624Cmziuqmrqo (Bld) [Volume fraction]45.1 %Dgqrkn70.8-51.9 [facility] HospitalComment on above:Performed By: #### 2045532, 6346262, 36734730, [id number], [id number] #### [facility] (DEFAULT) [address] [place] [address] 50619Kesjjszfhl (Bld) [Mass/Vol]15.6 g/rCRjxivd92.8-17.7 [facility] HospitalComment on above:Performed By: #### 8575524, 7094520, 40156405, [id number], [id number] #### [facility] (DEFAULT) [address] [place] [address] 18382Fzn Diff?AutoNormalGrand Lake [facility] HospitalComment on above: Performed By: #### 7813330, 3733187, 03349678, [id number], [id number] #### [facility] (DEFAULT) [address] [place] [address] 77700MYP (RBC) [Entitic mass]32 trOjejkx93-94Abzujkfp Hospital Comment on above:Performed By: #### 0179684, 7039611, 86384420, [id number], [id number] #### [facility] (DEFAULT) [address] [place], [place] [address]HC (RBC) [Mass/Vol]35 g/oRRxaoja63-13Nixpuuze Hospital Comment on above:Performed By: #### 6433434, 2555705, 12764725, [id number], [id number] #### [facility] (DEFAULT) [address] [place] [address] 48747XWP (RBC) [Entitic vol]93 fWOjrsiz36-871Acxctgwi Hospital Comment on above:Performed By: #### 4181357, 5230775, 88874710, [id number], [id number] #### [facility] (DEFAULT) [address] [place] [address] 82464Wljsqaps mean volume (Bld) [Entitic vol]9.9 fLNormal 6.3-10.2Mohio[facility] HospitalComment on above:Performed By: #### 8923827, 6091616, 11944322, [id number], [id number] #### [facility] (DEFAULT) [address] [place] [address] 71899Jlpfftxfi (Bld) [#/Vol]277 i68Hmmaun285-209Eumgekyj HospitalComment on above:Performed By: #### 4194788, 1608284, 87561974, 7255305170, [id number] #### [facility] (DEFAULT) [address] [place] [address] 19979WZZ (Bld) [#/Vol]4.83 g32Gacese5.70-5.30MaHolzer Health System Comment on above:Performed By: #### 8589731, 1224608, 30176783, [id number], [id number] #### [facility] (DEFAULT) [address] [place] [address] 60809OEG (Bld) [#/Vol]9.3 q67Bltdkk2.5-10.5Mametrohealth [facility] Hospital Comment on above:Performed By: #### 7008971, 3649908, 13562613, [id number], [id number] #### [facility] (DEFAULT) [address] [place] [address] 98384VYZ Standardon 78-38-1790fGGP Non AA>60[facility] Comment on above:Performed By: #### 4934270, 2325692, 53033907, [id number], [id number] #### [facility] (DEFAULT) [address] [place] [address] 67931oXKT AA>60[facility] HospitalComment on above:Result Comment: Chronic Kidney disease could be indicated at eGFRs of less than 60 ml/min/1.73m2. Kidney Failure is indicated at less than 15 ml/min/1.73m2 Performed By: #### 4228257, 0428338, 16258999, [id number], [id number] #### [facility] (DEFAULT) [address] [place] [address] 52852Rsgexfq [Mass/Vol]4.0 g/dLNormal3.5-5.0[facility] Comment on above:Performed By: #### 7529508, 2006941, 42593839, [id number], [id number] #### [facility] (DEFAULT) [address] [place] [address] 51376Kniyvta/Globulin [Mass ratio]1.1 {ratio}Low1.4-2.6MKettering Health Washington TownshipComment on above:Performed By: #### 1242674, 6795192, 28587256, [id number], [id number] #### [facility] (DEFAULT) [address] [place] [address] 00862Xdl Phos70 IU/OCmgynj38-60Wbecbtgq HospitalComment on above:Performed By: #### 4541738, 2423601, 04933242, 7921102969, [id number] #### [facility] (DEFAULT) [address] [place] [address] 23436KJQ/SGPT42.0 IU/DLbwahi80.0-63.0[facility] HospitalComment on above:Performed By: #### 5797179, 6207540, 85513588, [id number], [id number] #### [facility] (DEFAULT) [address] [place] [address] 51193Zndrb gap [Moles/Vol]13.0 mmol/LNormal5.0-19.0[facility] HospitalComment on above:Performed By: #### 2073914, 0592936, 14168106, [id number], [id number] #### [facility] (DEFAULT) [address] [place] [address] 12751HPP/SGOT27 IU/CWrovdi50-21Cnlkygcm HospitalComment on above:Performed By: #### 2899779, 4946025, 31770340, [id number], [id number] #### [facility] (DEFAULT) [address] [place] [address] 18485Nujh Total0.7 mg/dLNormal0.3-1.2[facility] HospitalComment on above:Performed By: #### 3158569, 8568131, 64360341, [id number], [id number] #### [facility] (DEFAULT) [address] [place] [address] 11134Xfnjzvo [Mass/Vol]9.0 mg/dLNormal8.9-10.3[facility] Hospital Comment on above:Performed By: #### 8664194, 1053456, 08882346, [id number], [id number] #### [facility] (DEFAULT) [address] [place] [address] 48847Ychmbwvz [Moles/Vol]102 mmol/AGqzund440-172Qwtaghpe HospitalComment on above:Performed By: #### 8541113, 4751632, 50371274, [id number], [id number] #### [facility] (DEFAULT) [address] [place] [address] [id number] [Moles/Vol]25 mmol/UIgwayd14-69Qjbowfec Hospital Comment on above:Performed By: #### [id number], [id number], [id number], [id number], [id number] #### [facility] (DEFAULT) [address] [place] [address] 30029Jtvekfkqra [Mass/Vol]0.97 mg/dLNormal0.90-1.30[facility] HospitalComment on above:Performed By: #### [id number], 3032961, [id number], [id number], [id number] #### [facility] (DEFAULT) [address] [place] [address] 03960Rbtydtrn (S) [Mass/Vol]3.5 g/dLNormal1.5-4.3[facility] HospitalComment on above:Performed By: #### [id number], [id number], [id number], [id number], [id number] #### [facility] (DEFAULT) [address] [place] [address] 99196Fyaaaxo [Mass/Vol]123.0 mg/pHIcal59.0-118.0[facility] HospitalComment on above:Performed By: #### [id number], [id number], [id number], [id number], [id number] #### [facility] (DEFAULT) [address] [place] [address] 49491Icvoeqkxxr [Osmolality]276 mOsm/LMohiohealth grady memorial hospital HospitalComment on above:Performed By: #### [id number], 8782814, [id number], [id number], [id number] #### [facility] (DEFAULT) [address] [place] [address] 18533Xpdifczll [Moles/Vol]3.6 mmol/LNormal3.6-5.1[facility] HospitalComment on above:Performed By: #### [id number], 8746141, [id number], [id number], [id number] #### [facility] (DEFAULT) [address] [place] [address] 19271Cwjavvr [Mass/Vol]7.5 g/dLNormal6.5-8.1[facility] Hospital Comment on above:Performed By: #### [id number], [id number], [id number], [id number], [id number] #### [facility] (DEFAULT) [address] [place] [address] 84073Xhjfmj [Moles/Vol]136.0 mmol/MBanuls663.0-144.0[facility] HospitalComment on above:Performed By: #### [id number], 1113136, [id number], [id number], [id number] #### [facility] (DEFAULT) [address] [place] [address] 22886Ezhc nitrogen [Mass/Vol]19 mg/dLNormal8-26[facility] HospitalComment on above:Performed By: #### 1376849, 2725769, 34834946, [id number], [id number] #### [facility] (DEFAULT) [address] [place] [address] 88089Yxhz nitrogen/Creatinine [Mass ratio]20.0 mg/mgHigh 4.6-16.2[facility] HospitalComment on above:Performed By: #### [id number], 3100635, 31229186, [id number], [id number] #### [facility] (DEFAULT) [address] [place] [address] 22910X-Pxbacuh 86-02-9162H-Dimer0.23 mg/L FEUNormal0.19-0.50 [facility] HospitalComment on above:Result Comment: The INNOVANCE D-Dimer assay [...] ? Liver cirrhosis ? PregnancyPerformed By: #### [id number], 4383204, [id number], [id number], [id number] #### [facility] (DEFAULT) [address], [place] [address]QQ Clinical Summaryon 72-18-6917LQ Clinical Summary [facility] - Emergency Department [address] [place] [address] ED Clinical Summary PERSON INFORMATION Name: GEREMIAS MELCHOR Age: 54 Years Sex: MALE : 1965 MRN: Acct#: Visit Reason: Shortness of breath; SOB Arrival: 06/17/2020 15:26:17 Discharge: 06/17/2020 17:58:00 LOS: 000 02:32 Check In: 06/17/2020 15:26:17 Checkout:06/17/2020 17:58:00 Address: [address] [place] [address] PCP: Ericka Muniz MD PROVIDER INFORMATION Provider [...] Adult Follow-Up: With: Address: When: Ericka Muniz [address] [place] [address] [facility] (1) Within 3 to 5 days DIAGNOSIS: Viral URI with cough Patient Understands: Yes - Patient/family/caregiver verbalizes understanding of instructions given Comment:[facility] HospitalED Note - Physicianon 26-94-7042VH Note - PhysicianPatient: GEREMIAS MELCHOR Age: 54 [...] % Auto Lymph % 25 % Auto Burke % 7 % Auto Eos % 2.3 % Auto Baso % 0.5 % Neut Abs# 6.0 x103/mcL Lymph Abs# 2.3 x103/mcL Burke Abs# 0.7 x103/mcL Eos Abs# 0.2 x103/mcL [...] and Plan Diagnosis Viral URI with cough (PQD13-BO J06.9, Discharge, Medical) Plan Condition: Stable. Disposition: [...] [Verified on: 06/17/2020 18:26 EST] Otilia Francois [facility] CenterED Note-Nursingon 12-82-6580TF Note-NursingPatient arrives to the ED via private [...] still feels more short of breath than normal.[facility] Patient Education Noteon 06-24-5331HD Patient Education NoteEducation Materials Upper Respiratory Infection, [...] to help relieve symptoms, such as: ? Evvk-ukg-rlcvowl cold medicines. ? Cough suppressants. Coughing is [...] other clear broths. General instructions ? Take swqb-lmu-fwsbvhy and prescription medicines only as told by [...] and water are not available, use hand entry level civil engineer. ? Avoid touching your mouth, face, eyes, [...] 12/21/2001 Document Revised: 07/05/2019 Document Reviewed: 02/10/2018 [employer] Patient Education ? 2019 [employer]. ENT Cough, Adult Coughing is a reflex [...] these instructions at home: Medicines ? Take japf-ddf-gozkzbc and prescription medicines only as told by [...] a condition that needs treatment. ? Take czhp-izt-otolbwo and prescription medicines only as told by [...] 12/24/2011 Document Revised: 07/16/2019 Document Reviewed: 07/16/2019 [employer] Patient Education ? 2019 [employer].[facility] HospitalED Patient Summaryon [id number] Patient SummaryOhiohealth Van Wert [facility] - Emergency Department [address] [place] [address] PATIENT DISCHARGE INSTRUCTIONS Patient Information Name: GEREMIAS MELCHOR Age: 54 Years Date of : 1965 Reason For Visit: Shortness of breath; SOB Arrival Time: 06/17/2020 15:26:17 Primary Care Physician: Ericka Muniz MD Attending Physician: Landon Vegas MD Comment: Visit Diagnosis: Diagnoses This Visit Shortness of breath ([id number]) Viral URI with cough (J06.9) Prescription Information: If you have been given a prescription for narcotics, seek immediate medical attention if you have any difficulty breathing or any sudden status changes such as confusion andsleepiness. If you or anyone you know is experiencing suicidal thoughts, mental health, alcohol and/or drug addiction problems; contact the [facility] 31/01 Crisis Hotline -Text 4HHFB to [phone]. If you received any narcotics, sedation, or [...] legal documents With: Address: When: Ericka Muniz [address] [place], [place] [id number] Business (1) Within 3 to 5 days Medication Information: The exam and treatment you received today in the [facility] Emergency Department were for an urgent problem and are not intended as complete care. It is important for you to follow up with a doctor, nurse practitioner, or physician?s assistant director of admissions for ongoing care. If your symptoms become [...] so we can reach you if necessary. [facility] Emergency [facility] has provided you with a complete list of medications post discharge. Please inform your traction power engineer/provider of your visit and for further instruction [...] to help relieve symptoms, such as: ? Kjnf-zsi-rpufums cold medicines. ? Cough suppressants. Coughing is [...] other clear broths. General instructions ? Take goor-iza-hshdpgi and prescription medicines only as told by [...] and water are not available, use hand entry level civil engineer. ? Avoid touching your mouth, face, eyes, [...] 12/21/2001 Document Revised: 07/05/2019 Document Reviewed: 02/10/2018 [employer] Patient Education ? 2020 [employer] Cough, Adult Coughing is a reflex [...] these instructions at home: Medicines ? Take mpsa-ydf-xcrjoka and prescription medicines only as told by [...] a condition that needs treatment. ? Take gens-lvt-vrzumrt and prescription medicines only as told by [...] 12/24/2011 Document Revised: 07/16/2019 Document Reviewed: 07/16/2019 [employer] Patient Education ? 2019 [employer] Viruses or Bacteria What?s got you [...] Centers for Disease Control and Prevention March 2014[facility] Extra Red 60-69-8375Fnrz CollectedGerman HospitalComment on above: Performed By: #### [id number], 2885379, [id number], [id number], [id number] #### [facility] (DEFAULT) [address] [place] [address] 60-50-8290Gdydasyb I High Sensitivity4 pg/mL Normal<=20[facility] HospitalComment on above:Result Comment: Male Baseline Delta 1Hr (Note pg/mL=ng/L) <20pg/mL 50-60% >20pg/mL 20% Female Baseline Delta 1Hr <15pg/mL 50-60% >15pg/mL 20% Other Baseline Delta 1Hr <18ng/mL 50-60% >18ng/mL 20% ([place] [employer] Guidelines February 2018)Performed By: #### [id number], 4797021, [id number], [id number], [id number] #### [facility] (DEFAULT) [address] [place], [place] [address]Hkckcyznf Panelon 63-26-4941ZML [Catalytic activity/Vol] 50.0 U/LInvalid Interpretation CodeNewfieldWhatSalon Bilirubin [Mass/Vol]0.3 mg/dL0.0-1.0[place]What[place]on HbA1c (Bld) [Mass fraction]6.6 %4.3-6.3Bskagit valley hospitalSquid Facil HbA1c (Bld) [Mass fraction]6.60 %Invalid Interpretation CodeNewfieldWhatSalon Albumin [Mass/Vol]4.50 g/dLInvalid Interpretation Code [place] [employer] AST [Catalytic activity/Vol]31.0 U/LInvalid Interpretation CodePhonezoo Communications No Panel Informationon 04-08-20206.6Invalid Interpretation Code4.3-6.3Bbucyrus community hospital [employer] 0.3Invalid Interpretation Code0.0-1.0[place] NegativeInvalid Interpretation CodeNegativePhonezoo Communications Otheron 64-20-4887YcjfgyxeFhygdoxjDpoakczxmPhonezoo Communications 4+Invalid Interpretation CodeNegativePhonezoo Communications ClearInvalid Interpretation CodeClearBbucyrus community hospital [employer] normalInvalid Interpretation CodenormalNewfieldWhatSalon yellowInvalid Interpretation CodeyellowHuddleApp 5218-1978113-93JpbfqhkieHuddleApp 6Invalid Interpretation Code5.0-9.0H[employer] 31Invalid Interpretation Code0-40[employer] 78Invalid Interpretation Muwu76-364DjngnacflPhonezoo Communications 1.010Invalid Interpretation Code1.003-1.030[employer] 1.5Invalid Interpretation Code1.0-2.4[facility]asc[facility] satelliteRapt 4.5Invalid Interpretation Code3.7-4.5BDocASAP 1.5Invalid Interpretation Code6.3-7.9BDocASAP 143Invalid Interpretation CodePhonezoo Communications 115.0 mg/dLInvalid Interpretation Code<140HuddleApp lsInvalid Interpretation CodeHuddleApp MRI KNEE RIGHT WO CONTRASTon 49-20-4310KPG KNEE RIGHT WO CONTRASTEXAMINATION: MRI OF THE [...] ligaments, suggestive of sprains. No definite tear identified.[facility], KYEXAMINATION: MRI OF THE RIGHT KNEE [...] edema are most compatible with a microtrabecular infraction.[facility]- [place], [place] Ezekiel, Mhpn Incoming Radiant Results From [facility] - 03/25/2020 3:02 PM EDT EXAMINATION: MRI [...] suggestive of sprains. No definite tear identified. [facility], [facility] SHOULDER RIGHT WO CONTRASTon 60-24-7779LAB SHOULDER RIGHT WO CONTRASTEXAMINATION: MRI OF THE [...] approximately 7 mm in greatest AP dimension. Hzagzwey-uy-fhprip underlying supraspinatus tendinopathy and granulation tissue. Pacx-iz-xhkolrpk underlying infraspinatus tendinopathy. Mild subscapularis tendinopathy. Teres [...] 6. No paralabral cyst formation. GLENOHUMERAL JOINT: Keqa-ta-xxbatbur glenohumeral chondromalacia. Small amount of fluid in [...] dimension with tear gap measuring 1.5 cm. Tplqzzzw-mm-fuvrdd underlying supraspinatus tendinopathy and granulation tissue. Ckrr-fy-xvtyhxux underlying infraspinatus tendinopathy. 2. Mild subscapularis tendinopathy. 3. Mild atrophy and fatty degeneration of subscapularis. 4. Mild diffuse labral degeneration. Degenerative tearing along the superior labrum. 5. Mfzk-xq-ozhfigte glenohumeral chondromalacia. 6. Mild degenerative change of the right AC joint. 7. Prior biceps tenodesis. 8. Susceptibility artifact and marrow edema surrounding a stress riser at the anterior humeral head. Interpreted by: Rodrigo Purcell MD Signed by: Rodrigo Purcell MD 02/12/20 Final resultNoTriHealth Bethesda Butler Hospital1. Prior rotator cuff repair. Region of full-thickness tearing of the critical zone along mid and posterior supraspinatus measuring 7 mm in greatest AP dimension with tear gap measuring 1.5 cm. Odtckncc-as-qxnihn underlying supraspinatus tendinopathy and granulation tissue. Hjak-sa-mkmgnhbs underlying infraspinatus tendinopathy. 2. Mild subscapularis tendinopathy. 3. Mild atrophy and fatty degeneration of subscapularis. 4. Mild diffuse labral degeneration. Degenerative tearing along the superior labrum. 5. Yhye-wg-uldqvrtf glenohumeral chondromalacia. 6. Mild degenerative change of the right AC joint. 7. Prior biceps tenodesis. 8. Susceptibility artifact and marrow edema surrounding a stress riser at the anterior humeral head.[facility], KYEXAMINATION: MRI OF THE RIGHT SHOULDER [...] approximately 7 mm in greatest AP dimension. Vlwevrgs-uo-gdspfl underlying supraspinatus tendinopathy and granulation tissue. Vddl-wc-sfoqnnzm underlying infraspinatus tendinopathy. Mild subscapularis tendinopathy. Teres [...] 6. No paralabral cyst formation. GLENOHUMERAL JOINT: Kgkl-aw-iqpnlaiq glenohumeral chondromalacia. Small amount of fluid in [...] grossly unremarkable in appearance. No right axillary lymphadenopathy.[facility]- [place], [place]Ed, [facility] Incoming Radiant Results From [facility] - 02/12/2020 3:46 PM EDT EXAMINATION: MRI [...] approximately 7 mm in greatest AP dimension. Pxzdmcob-qg-lqsqty underlying supraspinatus tendinopathy and granulation tissue. Uhol-ij-ekabonol underlying infraspinatus tendinopathy. Mild subscapularis tendinopathy. Teres [...] 6. No paralabral cyst formation. GLENOHUMERAL JOINT: Yyjy-tu-padvyjml glenohumeral chondromalacia. Small amount of fluid in [...] dimension with tear gap measuring 1.5 cm. Vdcmmjhw-nl-kocrwf underlying supraspinatus tendinopathy and granulation tissue. Qynf-ch-hrbnbkiy underlying infraspinatus tendinopathy. 2. Mild subscapularis tendinopathy. 3. Mild atrophy and fatty degeneration of subscapularis. 4. Mild diffuse labral degeneration. Degenerative tearing along the superior labrum. 5. Evus-fj-mwbqfbau glenohumeral chondromalacia. 6. Mild degenerative change of the right AC joint. 7. Prior biceps tenodesis. 8. Susceptibility artifact and marrow edema surrounding a stress riser at the anterior humeral head. [facility], KYGlucose, Whole Bloodon 22-89-5771Kssjdcm [Mass/Vol]113 mg/dL High74 - 100 mg/dLSamaritan Hospital, JACQUELINEInterpretation and review of laboratory resultsAbnormalSamaritan Hospital, KYBUNon 27-81-2006Pkox nitrogen [Mass/Vol]16 mg/dL6 - 20 mg/dLSamaritan Hospital, KYBUN (Urea N)on 12-52-3756Ckap nitrogen [Mass/Vol]16 mg/dLNormal6-20[facility] Cleveland WestComment on above:Performed By: #### HCT, BUN, CREG, GLU, LYTE #### [address] [place] [address] Manager Hiv: Sandeep Mac w/GFRon 12-26-2019(cont.)NormalRegency Hospital Cleveland WestComment on above:Result Comment: Average GFR for 50-59 years old: 93 mL/min/1.73sq m Chronic Kidney Disease: <60 mL/min/1.73sq m Kidney failure: <15 mL/min/1.73sq m eGFR calculated using average adult body mass. Additional eGFR calculator available at: http://www.Allylix/multiple_crcl_2011.htmPerformed By: #### HCT, BUN, CREG, GLU, LYTE #### [address] [place] [address] Manager Hiv: Sandeep Mac [Mass/Vol]1.15 mg/dLNormal0.70-1.20 [facility] Hospital Cleveland WestComment on above:Performed By: #### HCT, BUN, CREG, GLU, LYTE #### [address] [place] [address] Manager Hiv: Domingo Rayo MDGFR, Amer>60Normal>60[facility] Comment on above:Performed By: #### HCT, BUN, CREG, GLU, LYTE #### [address] [place] [address] Manager Hiv: Domingo Rayo MDGFR,non Amer>60Normal>60[facility] Cleveland WestComment on above:Performed By: #### HCT, BUN, CREG, GLU, LYTE #### [place] [address] [place] [address] Manager Hiv: Domingo Rayo, MDStaging:[facility] Liverpool City HospitalComment on above:Result Comment: Stage 1: Some kidney damage normal GFR Stage 2: Mild kidney damage GFR 60-89 Stage 3: Moderate kidney damage GFR 30-59 Stage 4: Severe kidney damage GFR 15-29 Stage 5: Severe kidney damage GFR <15 ESRD - chronic treatment by dialysis or transplantPerformed By: #### HCT, BUN, CREG, GLU, LYTE #### [address] [place] [address] Manager Hiv: Domingo Rayo, SUNNYreatinine, Serumon 01-01-6774Uucpwfulbk [Mass/Vol]1.15 mg/dL0.7 - 1.2 mg/dLSamaritan Hospital, KYGFR >60 >60 mL/minSamaritan Hospital, KYGFR Non->60>60 mL/minSamaritan Hospital, KYElectrolyte Panelon 44-86-4606Wxtnm gap [Moles/Vol]17 mmol/L9 - 17 mmol/L [facility], KYChloride [Moles/Vol]95 mmol/LLow98 - 107 mmol/[facility], KYCO2 [Moles/Vol]24 mmol/L20 - 31 mmol/[facility], KYPotassium [Moles/Vol]3.7 mmol/L3.7 - 5.3 mmol/[facility], KYSodium [Moles/Vol]136 mmol/L135 - 144 mmol/[facility], KYElectrolyteson 77-45-1413Tifha gap [Moles/Vol]17 mmol/LNormal9-17[facility] Cleveland WestComment on above:Performed By: #### HCT, BUN, CREG, GLU, LYTE #### [facility] [address] [place], [place] [address] Manager Hiv: SUNNY Machloride [Moles/Vol]95 mmol/CSfe09-666XssvsRegency Hospital Cleveland WestComment on above:Performed By: #### HCT, BUN, CREG, GLU, LYTE #### [address] [place], [facility] Manager Hiv: Domingo Rayo MDCO2 [Moles/Vol]24 mmol/DUhjrnl38-10Jmybx [facility]iffin HospitalComment on above:Performed By: #### HCT, BUN, CREG, GLU, LYTE #### [address] [place] [id number] Manager Hiv: Domingo Rayo MDPotassium [Moles/Vol]3.7 mmol/LNormal3.7-5.3[facility] HospitalComment on above:Performed By: #### HCT, BUN, CREG, GLU, LYTE #### [address] [place] [address] Manager Hiv: Domingo Rayo MDSodium [Moles/Vol]136 mmol/VMieken261-927ZmyuwRegency Hospital Cleveland WestComment on above:Performed By: #### HCT, BUN, CREG, GLU, LYTE #### [address] [place] [address] Manager Hiv: Domingo Rayo MDGlucoseon 83-60-8402Kourzbh [Mass/Vol]107 mg/dL Fvmk94-63Qvnsd Connecticut HospiceComment on above:Performed By: #### HCT, BUN, CREG, GLU, LYTE #### [address] [place] [address] Manager Hiv: Pramod Mac, randomon 06-86-6824Qblrxou [Mass/Vol]107 mg/iSTien06 - 99 mg/dLMount St. Mary Hospital JACQUELINEHematocriton 71-11-3657Friftqjgsn (Bld) [Volume fraction]47.4 %Deubej25.7-50.3[facility] Windsor HospitalComment on above:Performed By: #### HCT, BUN, CREG, GLU, LYTE #### [address] [place] [address] Manager Hiv: Domingo Rayo MDHematocrisandra (Bld) [Volume fraction]47.4 %40.7 - 50.3 %[place], KYMetabolic Panelon 86-34-4137DGF/1.73 sq M predicted among non-blacks MDRD (S/P/Bld) [Vol rate/Area][facility] on above:Average GFR for 50-59 years old: 93 mL/min/1.73sq m Chronic Kidney Disease: <60 mL/min/1.73sq m Kidney failure: <15 mL/min/1.73sq m eGFR calculated using average adult body mass. Additional eGFR calculator available at: http://www.Allylix/Celly_crcl_2012.htm Stage 1: Some kidney damage normal GFR Stage 2: Mild kidney damage GFR 60-89 Stage 3: Moderate kidney damage GFR 30-59 Stage 4: Severe kidney damage GFR 15-29 Stage 5: Severe kidney damage GFR <15 ESRD - chronic treatment by dialysis or transplant Otheron 45-56-5502Bmvubikgqvcfww and review of laboratory resultsAbnormBethesda North Hospital, JACQUELINECOVID-19on 02-77-4066UUPD-CoV-2Not DetectedNot [place], KYComsturgis hospital on above: The specimen is NEGATIVE for SARS-CoV-2, the novel coronavirus associated with COVID-19. A negative result does not rule out COVID-19. This test has been authorized by the FDA under an Emergency Use Authorization (EUA) for use by authorized laboratories. Fact sheet for Healthcare Providers: https://www.fda.gov/media/225053/download Fact sheet for Patients: https://www.fda.gov/media/230622/download METHODOLOGY: RT-PCR SARS-CoV-2, PCRSamaritan Hospital, BNIPAG-YoD-9, [facility] .NASOPHARYNGEAL SWABSamaritan Hospital, QJDHGH-SrF-6ej 35-33-6324BGTS-CoV-2,Rapid [facility] on above:Performed By: #### COVID #### [facility] [address] [place] [address] Manager Hiv: Sam Jacobs MD [address] [place] [address] Manager Hiv: LORENA MacCBKNRU-BbY-1LdnuqfEdsjjMercy HospitalComment on above:Performed By: #### COVID #### [place] [address] [place] [address] Manager Hiv: Sam Jacobs MD [facility] [address] [place] [address] [address] [place] [address] Manager Hiv: Doni Macot DetectedNormalNOTDEMartins Ferry HospitalComsturgis hospital on above:Result Comment: The specimen is NEGATIVE for SARS-CoV-2, the novel coronavirus associated with COVID-19. A negative result does not rule out COVID-19. This test has been authorized by the FDA under an Emergency Use Authorization (EUA) for use by authorized laboratories. Fact sheet for Healthcare Providers: https://www.fda.gov/media/352331/download Fact sheet for Patients: https://www.fda.gov/media/002362/download METHODOLOGY: RT-PCRPerformed By: #### COVID #### [facility] [address] [place] [address] Manager Hiv: Sam Jacobs MD [address] [place] [id number] Manager Hiv: Domingo Rayo MDEKG 12 Lead 61-05-9206Ntbwip Prju56RHNNhfan Health- [place], KYP Hdtk55azulfcpRldjk Health- [place], KYP-R Rscfufmo007 msMercy Health- [place], KYQ-T Suqdcqdr581 msMercy Health- [place], KYQRS Ivrblnjr08 msMercy Health- [place], KYQTc Calculation (Rosalva)445 msMercy Health- [place], KYR Fxsx85fxxhwcpHonip Health- [place], KYT Ontt12vocnidtZgvap Health- [place], KYVentricular Lutl60GNDArgwf Health- [place], KYNormal sinus rhythm Normal ECG No previous ECGs available Confirmed by Federico Burks MD ([id number]) on 12/24/2019 4:59:35 [facility] JACQUELINEBrett Falcon Incoming Ekg Results From [employer] [place] - 12/24/2019 4:59 PM EDT Normal sinus rhythm Normal ECG No previous ECGs available Confirmed by Federico Burks MD ([id number]) on 12/24/2019 4:59:35 PMSamaritan Hospital, JACQUELINE RHEF-KjS-3ls 38-01-2168VLFS-CoV-2 Source.NASOPHARYNGEAL SWABNoTriHealth Bethesda Butler HospitalComment on above:Performed By: #### COVID #### [facility] tokia.lt [address] [place] [address] Manager Hiv: Sam Jacobs MD [facility] [address] [place] [address] Manager Hiv: Domingo Rayo MDLaboratory - Chemistry and Chemistry - challenge on 98-37-8913Twdrlmsqi Ql (U)NegativeInvalid Interpretation CodeNegative [place] [employer] Urobilinogen (U) [Mass/Vol]normalInvalid Interpretation CodenormalHuddleApp Laboratory - Hematology and Cell countson 12-20-2019 Hemoglobin Ql (U)NegativeInvalid Interpretation CodeNegativePhonezoo Communications Laboratory - Urinalysison 81-87-1831Dshcuqcrb esterase Test strip Ql (U)NegativeInvalid Interpretation CodeNegativePhonezoo Communications Nitrite Ql (U)NegativeInvalid Interpretation Code NegativePhonezoo Communications Protein Ql (U)NegativeInvalid Interpretation Code NegativePhonezoo Communications Metabolic Panelon 99-54-6147Emqng gap [Moles/Vol]20 mmol/LInvalid Interpretation Vmww93-79KaiyjoiacPhonezoo Communications Calcium [Mass/Vol]9.10 mg/dLInvalid Interpretation Code 8.5-10.8Bbucyrus community hospital [employer] [facility] Chloride [Moles/Vol]97.0 mmol/LInvalid Interpretation Decn365-839Gcegvtybs [place] [employer] [facility] CO2 [Moles/Vol]23.0 mmol/LInvalid Interpretation Code 23-30[place] Hell[employer] [facility] [facility] Creatinine [Mass/Vol]1.0 mg/dLInvalid Interpretation Code0.5-1.5[facility] [employer] [facility] GFR/1.73 sq M predicted among non-blacks MDRD (S/P/Bld) [Vol rate/Area]78 mL/min/{1.73_m2}Invalid Interpretation CodeLiving[place] Hellot[employer] [facility] Glucose [Mass/Vol]90.0 mg/dLInvalid Interpretation Code 80-117NewfieldOM [place] [facility] HbA1c (Bld) [Mass fraction]6.80 %Invalid Interpretation Code4.3-6.3[facility] [employer] [facility] Potassium [Moles/Vol]4.10 mmol/LInvalid Interpretation Code3.5-5.3[facility] [employer] [facility] Sodium [Moles/Vol]136.0 mmol/LInvalid Interpretation Huzw521-805TbefohzcjOM Lat[place] [facility] Urea nitrogen [Mass/Vol]16.0 mg/dLInvalid Interpretation Code7-25NewfieldOM [place] [facility] Urea nitrogen/Creatinine [Mass ratio]16 mg/mgInvalid Interpretation Code6-20NewfieldOM [place] [facility] Otheron 65-45-4140Tkpnjstff Ql (U)NegativeNegative [place] [employer] [facility] Glucose Test strip (U) [Mass/Vol]4+Invalid Interpretation CodeNegativeNewfieldWhatSalon Hemoglobin Ql (U)NegativeNegativeLivingston [employer] Nitrite Ql (U)NegativeNegativeLivingston [employer] pH (U)5 [pH]Invalid Interpretation Code5.0-9.0[place]WhatSalon Protein Ql (U)NegativeNegativeNewfieldWhatSalon Urobilinogen Test strip (U) [Mass/Vol]normalnormal [place] [employer] 148BlanchWhatSalon 148.0 mg/dLInvalid Interpretation CodeNewfieldWhatSalon Urinalysison 32-13-7901Ldzuxmg (U)clearInvalid Interpretation CodeClearBlanshasta regional medical center [employer] Color (U)yellowInvalid Interpretation Codeyellow [place] [employer] Ketones Ql (U)1+Invalid Interpretation CodeNegative [place] [employer] Leukocyte esterase Test strip Ql (U)NegativeNegative MonroeMarginLeft Specific gravity (U) [Rel density]1.010Invalid Interpretation Code1.003-1.030[place]WhatSalon Cardiacon 68-18-4251Xbnatjmgmyt [Mass/Vol]153.0 mg/dL Invalid Interpretation Code0-200H[employer] Cholesterol in HDL [Mass/Vol]56.0 mg/dLInvalid Interpretation Vmqu84-107JhehpuheyWhatSalon Cholesterol in LDL [Mass/Vol]80.0 mg/dLInvalid Interpretation Code0-130BlanchWhatSalon Triglyceride [Mass/Vol]84.0 mg/dLInvalid Interpretation Aioz71-697TebpbvrtlWhatSalon Metabolic Panelon 92-49-9166Tipvcpv [Mass/Vol]4.60 g/dL Invalid Interpretation Code3.7-4.5Bskagit valley hospitalNext [employer] [facility] ALP [Catalytic activity/Vol]75.0 U/LInvalid Interpretation Iogi32-429JuvqtcgflWhatSalon ALT [Catalytic activity/Vol]54.0 U/LInvalid Interpretation Code0-50[place]WhatSalon Anion gap [Moles/Vol]18 mmol/LInvalid Interpretation Ldvc81-49WrjysedjtWhatSalon AST [Catalytic activity/Vol]37.0 U/LInvalid Interpretation Code0-40[place]WhatSalon Bilirubin [Mass/Vol]0.50 mg/dLInvalid Interpretation Code0.0-1.0[place]OM [place] [facility] Calcium [Mass/Vol]9.40 mg/dLInvalid Interpretation Code 8.5-10.8Bskagit valley hospitalNext New [employer] [facility] Chloride [Moles/Vol]99.0 mmol/LInvalid Interpretation Acle403-052QzfxbpipwOM Latam [facility] CO2 [Moles/Vol]27.0 mmol/LInvalid Interpretation Code 23-30[employer] Creatinine [Mass/Vol]1.0 mg/dLInvalid Interpretation Code0.5-1.5BFlypaper [facility] GFR/1.73 sq M predicted among non-blacks MDRD (S/P/Bld) [Vol rate/Area]78 mL/min/{1.73_m2}Invalid Interpretation CodePhonezoo Communications Glucose [Mass/Vol]120.0 mg/dLInvalid Interpretation Rfga98-177EkynxirptHuddleApp HbA1c (Bld) [Mass fraction]6.80 %Invalid Interpretation Code4.3-6.3[facility] satelliteRapt Potassium [Moles/Vol]4.0 mmol/LInvalid Interpretation Code3.5-5.3[facility] satelliteRapt Protein [Mass/Vol]7.80 g/dLInvalid Interpretation Code 6.3-7.9BDocASAP Sodium [Moles/Vol]140.0 mmol/LInvalid Interpretation Vajx013-838BswhwuogiHuddleApp Urea nitrogen [Mass/Vol]13.0 mg/dLInvalid Interpretation Code7-25Phone[employer] Urea nitrogen/Creatinine [Mass ratio]13 mg/mgInvalid Interpretation Code6-20[employer] Otheron 75-66-8477Ggivvyp (U) [Mass/Vol]22.3Invalid Interpretation Code<17.0[employer] Albumin/Globulin [Mass ratio]1.4 {ratio}Invalid Interpretation Code1.0-2.4BDocASAP Cholesterol in VLDL [Mass/Vol]17.0 mg/dLInvalid Interpretation Code0-39[employer] Cholesterol.total/Cholesterol in HDL [Mass ratio]3 {ratio}Invalid Interpretation CodePhonezoo Communications 148[employer] 148.0 mg/dLInvalid Interpretation CodePhonezoo Communications 54.0 U/L0-50[place]WhatSalon Urinalysison 18-85-4971Mgljnpy/Creatinine DL <= 20 mg/L (U) [Mass ratio]29.8 mg/gInvalid Interpretation Code0.0-30.0[place]WhatSalon Creatinine (U) [Mass/Vol]74.90 mg/dLInvalid Interpretation CodeNot Estab. mg/dLBbucyrus community hospital [employer] Metabolic Panelon 45-77-1693Uxycv gap [Moles/Vol]16 mmol/LInvalid Interpretation Gdts32-37NzynjelnbWhatSalon Calcium [Mass/Vol]9.70 mg/dLInvalid Interpretation Code 8.5-10.8Bskagit valley hospitalSquid Facil Chloride [Moles/Vol]100.0 mmol/LInvalid Interpretation Khwy236-354QacmmvhvwWhatSalon CO2 [Moles/Vol]27.0 mmol/LInvalid Interpretation Code 23-30[place]WhatSalon Creatinine [Mass/Vol]1.10 mg/dLInvalid Interpretation Code0.5-1.5Bskagit valley hospitalSquid Facil GFR/1.73 sq M predicted among non-blacks MDRD (S/P/Bld) [Vol rate/Area]70 mL/min/{1.73_m2}Invalid Interpretation CodeNewfieldWhatSalon Glucose [Mass/Vol]137.0 mg/dLInvalid Interpretation Oqzo79-567HnmogemsdWhatSalon Potassium [Moles/Vol]4.0 mmol/LInvalid Interpretation Code3.5-5.3[facility] satelliteRapt Sodium [Moles/Vol]139.0 mmol/LInvalid Interpretation Bnal458-962EcxvliothOM Latam [facility] Urea nitrogen [Mass/Vol]26.0 mg/dLInvalid Interpretation Code7-25[place]WhatSalon Urea nitrogen/Creatinine [Mass ratio]24 mg/mgInvalid Interpretation Code6-20[place]fieldOM [place] [facility] Laboratory - Chemistry and Chemistry - challengeon 61-17-8290Vnoibgjtl Ql (U)NegativeInvalid Interpretation CodeNegativeNewfieldOM Latam [facility] Ketones Ql (U)NegativeInvalid Interpretation Code NegativeNewfieldWhatSalon Urobilinogen (U) [Mass/Vol]normalInvalid Interpretation CodenormalNewfieldOM Latam [facility] Laboratory - Urinalysison 96-94-3504Ljgdzzd Ql (U) NegativeInvalid Interpretation CodeNegativeNewfieldOM Latam [facility] Metabolic Panelon 11-24-4970Xwdkx gap [Moles/Vol]18 mmol/LInvalid Interpretation Wtsm79-86IvoqzwyehCopanion [facility] Calcium [Mass/Vol]9.70 mg/dLInvalid Interpretation Code 8.5-10.8Bskag[facility] valley hospitalSquid Facil Chloride [Moles/Vol]97.0 mmol/LInvalid Interpretation Lkdf198-797CrbeqinzqOM Latam [facility] CO2 [Moles/Vol]25.0 mmol/LInvalid Interpretation Code 23-30[employer] Creatinine [Mass/Vol]2.30 mg/dLInvalid Interpretation Code0.5-1.5[facility] satelliteRapt GFR/1.73 sq M predicted among non-blacks MDRD (S/P/Bld) [Vol rate/Area]30 mL/min/{1.73_m2}Invalid Interpretation CodeHuddleApp Glucose [Mass/Vol]231.0 mg/dLInvalid Interpretation Rldb03-118TgtcpoasoPhonezoo Communications HbA1c (Bld) [Mass fraction]7.60 %Invalid Interpretation Code4.3-6.3BOctane Lendingpaulding county hospitalSquid Facil Potassium [Moles/Vol]4.50 mmol/LInvalid Interpretation Code3.5-5.3Bskagit valley hospitalSquid Facil Sodium [Moles/Vol]135.0 mmol/LInvalid Interpretation Wmog224-170LeaulpxbxHuddleApp Urea nitrogen [Mass/Vol]34.0 mg/dLInvalid Interpretation Code7-25[place]WhatSalon Urea nitrogen/Creatinine [Mass ratio]15 mg/mgInvalid Interpretation Code6-20[employer] Otheron 07-07-6508Mvddmaowp Ql (U)NegativeNegative [employer] Gamma glutamyl transferase [Catalytic activity/Vol]72 U/LInvalid Interpretation Code7-51[place]WhatSalon Glucose Test strip (U) [Mass/Vol]4+Invalid Interpretation CodeNegativePhonezoo Communications Hemoglobin Ql (U)TraceInvalid Interpretation Code NegativeHuddleApp Nitrite Ql (U)NegativeNegativeHuddleApp pH (U)5 [pH]Invalid Interpretation Code5.0-9.0[employer] Protein Ql (U)1+Invalid Interpretation CodeNegative [employer] Urobilinogen Test strip (U) [Mass/Vol]normalnormal MonroeDrop[employer] 171BlanchWhatSalon 171.0 mg/dLInvalid Interpretation CodeNewfieldWhatSalon Urinalysison 80-11-5027Agwszfg (U)ClearInvalid Interpretation CodeClearBlanshasta regional medical center [employer] Color (U)yellowInvalid Interpretation Codeyellow [place] [employer] Ketones Ql (U)NegativeNegativeNewfieldWhatSalon Leukocyte esterase Test strip Ql (U)TraceInvalid Interpretation CodeNegativeNewfieldWhatSalon Specific gravity (U) [Rel density]1.015Invalid Interpretation Code1.003-1.030[place]WhatSalon Cardiacon 11-40-8725Mivriekapqn [Mass/Vol]164.0 mg/dL Invalid Interpretation Code0-200[employer] Cholesterol in HDL [Mass/Vol]33.0 mg/dLInvalid Interpretation Dvug87-611IqmzomgtoWhatSalon Cholesterol in LDL [Mass/Vol]89.0 mg/dLInvalid Interpretation Code0-130[employer] Triglyceride [Mass/Vol]208.0 mg/dLInvalid Interpretation Fstj48-700ZmwwuerwhHuddleApp Hematologyon 25-38-4998Uykhqknhoo (Bld) [Volume fraction]44.80 %Invalid Interpretation Code37.8-51.0[employer] Hemoglobin (Bld) [Mass/Vol]15.30 g/dLInvalid Interpretation Code12.6-17.0[employer] MCH (RBC) [Entitic mass]31.40 pgInvalid Interpretation Code25.7-33.8BDocASAP MCV (RBC) [Entitic vol]92.0 fLInvalid Interpretation Code81.0-100.2BDocASAP Platelets (Bld) [#/Vol]316.0 10*3/uLInvalid Interpretation Ykyf572-200BpydmfdyaHuddleApp RBC (Bld) [#/Vol]4.870 10*6/uLInvalid Interpretation Code4.34-5.61[employer] WBC (Bld) [#/Vol]8.50 10*3/uLInvalid Interpretation Code3.9-10.3BDocASAP Imm/Pathon 86-74-7554Zyeaeyvw specific Ag [Mass/Vol] 0.59 ng/mLInvalid Interpretation Code0.00-4.00H[employer] Laboratory - Chemistry and Chemistry - challengeon 28-14-9941Ckktynpdx Ql (U)NegativeInvalid Interpretation CodeNegativePhonezoo Communications Ketones Ql (U)NegativeInvalid Interpretation Code NegativePhonezoo Communications Urobilinogen (U) [Mass/Vol]normalInvalid Interpretation CodenormalPhonezoo Communications Laboratory - Hematology and Cell countson 05-22-2019 Hemoglobin Ql (U)NegativeInvalid Interpretation CodeNegativePhonezoo Communications Laboratory - Urinalysison 53-66-2935Nqzctskrt esterase Test strip Ql (U)NegativeInvalid Interpretation CodeNegativePhonezoo Communications Nitrite Ql (U)NegativeInvalid Interpretation Code NegativePhonezoo Communications Protein Ql (U)NegativeInvalid Interpretation Code NegativeHuddleApp Metabolic Panelon 73-19-1477Gffmlyz [Mass/Vol]4.30 g/dL Invalid Interpretation Code3.7-4.5BDocASAP ALP [Catalytic activity/Vol]79.0 U/LInvalid Interpretation Ygvi65-503UujmtgwcgHuddleApp ALT [Catalytic activity/Vol]23.0 U/LInvalid Interpretation Code0-50[employer] Anion gap [Moles/Vol]16 mmol/LInvalid Interpretation Qnbi90-50FiutbjvnzHuddleApp AST [Catalytic activity/Vol]15.0 U/LInvalid Interpretation Code0-40Phone[employer] Bilirubin [Mass/Vol]0.40 mg/dLInvalid Interpretation Code0.0-1.0[employer] Calcium [Mass/Vol]9.60 mg/dLInvalid Interpretation Code 8.5-10.8BDocASAP Chloride [Moles/Vol]97.0 mmol/LInvalid Interpretation Kpap576-811KherdrbtjPhonezoo Communications CO2 [Moles/Vol]27.0 mmol/LInvalid Interpretation Code 23-30[employer] Creatinine [Mass/Vol]1.10 mg/dLInvalid Interpretation Code0.5-1.5BDocASAP GFR/1.73 sq M predicted among non-blacks MDRD (S/P/Bld) [Vol rate/Area]70 mL/min/{1.73_m2}Invalid Interpretation CodePhonezoo Communications Glucose [Mass/Vol]101.0 mg/dLInvalid Interpretation Idwv57-746KegfqnvxxPhonezoo Communications Potassium [Moles/Vol]4.30 mmol/LInvalid Interpretation Code3.5-5.3BDocASAP Protein [Mass/Vol]7.60 g/dLInvalid Interpretation Code 6.3-7.9BDocASAP Sodium [Moles/Vol]136.0 mmol/LInvalid Interpretation Xikk740-970WcpgmbkvbPhonezoo Communications Urea nitrogen [Mass/Vol]21.0 mg/dLInvalid Interpretation Code7-25[employer] Urea nitrogen/Creatinine [Mass ratio]19 mg/mgInvalid Interpretation Code6-20[employer] Otheron 90-50-3838Ruzybaf/Globulin [Mass ratio]1.3 {ratio}Invalid Interpretation Code1.0-2.4BDocASAP Bilirubin Ql (U)NegativeNegativePhonezoo Communications Cholesterol in VLDL [Mass/Vol]42.0 mg/dLInvalid Interpretation Code0-39[employer] Cholesterol.total/Cholesterol in HDL [Mass ratio]5 {ratio}Invalid Interpretation [employer] Collection time (Andrei) [Date/time]1:00 pmInvalid Interpretation CodePhonezoo Communications Erythrocyte distribution width (RBC) [Ratio]12.40 % Invalid Interpretation Code11.5-15.5BDocASAP Glucose Test strip (U) [Mass/Vol]4+Invalid Interpretation CodeNegativePhonezoo Communications Hemoglobin Ql (U)NegativeNegativeNewfieldWhatSalon MCHC (RBC) [Mass/Vol]34.20 g/dLInvalid Interpretation Code32.0-36.0[place]WhatSalon Nitrite Ql (U)NegativeNegativeNewfieldWhatSalon pH (U)5 [pH]Invalid Interpretation Code5.0-9.0[place]WhatSalon Platelet mean volume (Bld) [Entitic vol]9.40 fLInvalid Interpretation Code8.3-11.5[facility] [employer] Protein Ql (U)NegativeNegUNC Health Rex Holly SpringsWhatSalon Urobilinogen Test strip (U) [Mass/Vol]normalnormal MonroeMarginLeft 23.0 U/L0-50[place]WhatSalon Urinalysison 17-16-5119Zngsjlr (U)ClearInvalid Interpretation CodeClearBbucyrus community hospital [employer] Color (U)yellowInvalid Interpretation Codeyellow MonroeMarginLeft Ketones Ql (U)NegativeNegativeNewfieldWhatSalon Leukocyte esterase Test strip Ql (U)NegativeNegative MonroeMarginLeft Specific gravity (U) [Rel density]1.015Invalid Interpretation Code1.003-1.030[place]WhatSalon Laboratory - Chemistry and Chemistry - challengeon 06-73-7179Tlevykhgb Ql (U)NegativeInvalid Interpretation CodeNegUNC Health Rex Holly SpringsWhatSalon Urobilinogen (U) [Mass/Vol]normalInvalid Interpretation CodenormalNewfieldWhatSalon Laboratory - Hematology and Cell countson 04-09-2019 Hemoglobin Ql (U)NegativeInvalid Interpretation CodeNegativeHuddleApp Laboratory - Urinalysison 48-75-9326Quenfnlbb esterase Test strip Ql (U)NegativeInvalid Interpretation CodeNegativeNewfieldWhatSalon Nitrite Ql (U)NegativeInvalid Interpretation Code NegativeHuddleApp Metabolic Panelon 10-46-0746Exuleoy [Mass/Vol]4.50 g/dL Invalid Interpretation Code3.7-4.5Bskag[facility] valley hospitalSquid Facil ALP [Catalytic activity/Vol]73.0 U/LInvalid Interpretation Gbvm01-538AqspuwzspHuddleApp ALT [Catalytic activity/Vol]47.0 U/LInvalid Interpretation Code0-50[place]WhatSalon Anion gap [Moles/Vol]17 mmol/LInvalid Interpretation Sonr02-36CkqnntucjHuddleApp AST [Catalytic activity/Vol]41.0 U/LInvalid Interpretation Code0-40[place]WhatSalon Bilirubin [Mass/Vol]0.50 mg/dLInvalid Interpretation Code0.0-1.0[employer] Calcium [Mass/Vol]9.30 mg/dLInvalid Interpretation Code 8.5-10.8[facility] satelliteRapt Chloride [Moles/Vol]97.0 mmol/LInvalid Interpretation Eeku972-705WyrllhxiyHuddleApp CO2 [Moles/Vol]27.0 mmol/LInvalid Interpretation Code 23-30[employer] Creatinine [Mass/Vol]0.90 mg/dLInvalid Interpretation Code0.5-1.5BDocASAP GFR/1.73 sq M predicted among non-blacks MDRD (S/P/Bld) [Vol rate/Area]88 mL/min/{1.73_m2}Invalid Interpretation CodeHuddleApp Glucose [Mass/Vol]186.0 mg/dLInvalid Interpretation Ucru81-309LgtivkmdpPhonezoo Communications HbA1c (Bld) [Mass fraction]7.70 %Invalid Interpretation Code4.3-6.3BDocASAP Potassium [Moles/Vol]4.0 mmol/LInvalid Interpretation Code3.5-5.3BDocASAP Protein [Mass/Vol]7.60 g/dLInvalid Interpretation Code 6.3-7.9BDocASAP Sodium [Moles/Vol]137.0 mmol/LInvalid Interpretation Qwna228-021OcyumyonfPhonezoo Communications Urea nitrogen [Mass/Vol]16.0 mg/dLInvalid Interpretation Code7-25[employer] Urea nitrogen/Creatinine [Mass ratio]18 mg/mgInvalid Interpretation Code6-20[employer] Otheron 19-41-7302Mxxzshr (U) [Mass/Vol]48.5Invalid Interpretation Code<17.0[employer] Albumin/Globulin [Mass ratio]1.5 {ratio}Invalid Interpretation Code1.0-2.4BDocASAP Bilirubin Ql (U)NegativeNegativeHuddleApp Gamma glutamyl transferase [Catalytic activity/Vol]52 U/LInvalid Interpretation Code7-51[place] [employer] Glucose Test strip (U) [Mass/Vol]4+Invalid Interpretation CodeNegativeNewfieldWhatSalon Hemoglobin Ql (U)NegativeNegativeLivingston [employer] Nitrite Ql (U)NegativeNegativeLivingston [employer] pH (U)6 [pH]Invalid Interpretation Code5.0-9.0[place] [employer] [facility] Protein Ql (U)1+Invalid Interpretation CodeNegative [place] [employer] [facility] Urobilinogen Test strip (U) [Mass/Vol]normalnormal [place] [employer] 174BlanchWhatSalon 47.0 U/L0-50[place] [employer] [facility] 174.0 mg/dLInvalid Interpretation CodeNewfieldOM Latam [facility] Urinalysison 43-91-3678Weejzdi/Creatinine DL <= 20 mg/L (U) [Mass ratio]70.7 mg/gInvalid Interpretation Code0.0-30.0[place] [employer] [facility] Clarity (U)clearInvalid Interpretation CodeClear [place] [employer] Color (U)yellowInvalid Interpretation Codeyellow [place] [employer] [facility] Creatinine (U) [Mass/Vol]68.60 mg/dLInvalid Interpretation CodeNot Estab. mg/dLBlanshasta regional medical center [employer] Ketones Ql (U)2+Invalid Interpretation CodeNegative MonroeMarginLeft Leukocyte esterase Test strip Ql (U)NegativeNegative MonroeMarginLeft Specific gravity (U) [Rel density]1.010Invalid Interpretation Code1.003-1.030[place] [employer] Laboratory - Chemistry and Chemistry - challengeon 01-18-9380Losnornwn Ql (U)NegativeInvalid Interpretation CodeNegativeLivingston [employer] Urobilinogen (U) [Mass/Vol]normalInvalid Interpretation CodenormalLivingston [employer] Laboratory - Hematology and Cell countson 12-08-2018 Hemoglobin Ql (U)NegativeInvalid Interpretation CodeNegativeNewfieldWhatSalon Laboratory - Urinalysison 11-69-3498Pjflqjbrz esterase Test strip Ql (U)NegativeInvalid Interpretation CodeNegUNC Health Rex Holly SpringsWhatSalon Nitrite Ql (U)NegativeInvalid Interpretation Code NegativeNewfieldWhatSalon Protein Ql (U)NegativeInvalid Interpretation Code NegativeNewfieldWhatSalon Metabolic Panelon 66-42-2952Eaftliu mass sfer239.0 mg/dLInvalid Interpretation Evso75-921KzzuekawbWhatSalon Hemoglobin A1c/Hemoglobin.total mass fraction (Bld)8.80 %Invalid Interpretation Code4.3-6.3[facility] [employer] Otheron 94-60-9587Umfkgvpxw Ql (U)NegativeNegative [place] [employer] Glucose Test strip mass conc (U)4+Invalid Interpretation CodeNegativeNewfieldWhatSalon Hemoglobin Ql (U)NegativeNegativeNewfieldWhatSalon Nitrite Ql (U)NegativeNegUNC Health Rex Holly SpringsWhatSalon pH (U)6 [pH]Invalid Interpretation Code5.0-9.0H[employer] Protein Ql (U)NegativeNegativeHuddleApp Urobilinogen Test strip mass conc (U)normalnormal [employer] 206[employer] 206.0 mg/dLInvalid Interpretation CodeHuddleApp Urinalysison 34-30-9953Vbirvmn Nom (U)ClearInvalid Interpretation CodeClearBlanshasta regional medical center [employer] Color Nom (U)yellowInvalid Interpretation Codeyellow MonroeMarginLeft Ketones Ql (U)1+Invalid Interpretation CodeNegative [employer] Leukocyte esterase Test strip Ql (U)NegativeNegative [employer] Specific gravity Relative Density (U)1.015Invalid Interpretation Code1.003-1.030Huddle[employer] Cardiacon 77-45-6526Nxwgxramuae in HDL mass conc35.0 mg/dLInvalid Interpretation Poel96-189DrhzflvdrPhonezoo Communications Cholesterol in LDL mass conc90.0 mg/dLInvalid Interpretation Code0-130H[employer] Cholesterol mass uiqv983.0 mg/dLInvalid Interpretation Code0-200Phone[employer] Triglyceride mass auvl899.0 mg/dLInvalid Interpretation Vsyp78-808YshqcxadvHuddleApp Hematologyon 60-05-2448Qukzcglcbm Volume Fraction (Bld) 44.0 %Invalid Interpretation Code37.8-51.0H[employer] Hemoglobin mass conc (Bld)15.20 g/dLInvalid Interpretation Code12.6-17.0[place]WhatSalon MCH Entitic mass (RBC)32.0 pgInvalid Interpretation Code25.7-33.8Bskagit valley hospitalSquid Facil MCV Entitic volume (RBC)92.60 fLInvalid Interpretation Code81.0-100.2Bskagit valley hospitalSquid Facil Platelets #/vol (Bld)244.0 10*3/uLInvalid Interpretation Ncbt608-046NhjyctjrvWhatSalon RBC #/vol (Bld)4.750 10*6/uLInvalid Interpretation Code 4.34-5.61[place]WhatSalon WBC #/vol (Bld)6.80 10*3/uLInvalid Interpretation Code 3.9-10.3[facility] satelliteRapt Imm/Pathon 83-17-9482Bsgmyaxy specific Ag mass conc0.61 ng/mLInvalid Interpretation Code0.00-4.00[place]WhatSalon Metabolic Panelon 36-53-8705Maizmsh mass conc4.50 g/dL Invalid Interpretation Code3.7-4.5[facility] satelliteRapt ALP enzyme act/vol75.0 U/LInvalid Interpretation Code 31-155NewfieldWhatSalon ALT enzyme act/vol66.0 U/LInvalid Interpretation Code 0-50[employer] Anion gap molar conc20 mmol/LInvalid Interpretation Uusy82-84EuqkvagbtWhatSalon AST enzyme act/vol39.0 U/LInvalid Interpretation Code 0-40Phone[employer] Bilirubin mass conc0.40 mg/dLInvalid Interpretation Code0.0-1.0[place]WhatSalon Calcium mass conc9.40 mg/dLInvalid Interpretation Code 8.5-10.8[facility] [employer] Chloride molar conc96 mmol/LInvalid Interpretation Code 100-112NewfieldOM Latam [facility] CO2 molar conc28 mmol/LInvalid Interpretation Gwlo59-97 [place] [employer] [facility] Creatinine mass conc0.90 mg/dLInvalid Interpretation Code0.5-1.5[facility] [employer] GFR/1.73 sq M predicted among non-blacks MDRD vol rate/area (S/P/Bld)88 mL/min/{1.73_m2}Invalid Interpretation CodeNewfieldOM Latam [facility] Glucose mass lzbq820.0 mg/dLInvalid Interpretation Code 80-117[place]WhatSalon Hemoglobin A1c/Hemoglobin.total mass fraction (Bld) 10.50 %Invalid Interpretation Code4.3-6.3Bskagit valley hospitalSquid Facil Potassium molar conc4.1 mmol/LInvalid Interpretation Code3.5-5.3[facility]bu[facility] [employer] Protein mass conc7.60 g/dLInvalid Interpretation Code 6.3-7.9[facility] [employer] [facility] Sodium molar xwfl721 mmol/LInvalid Interpretation Code 135-148[place]WhatSalon Urea nitrogen mass conc13.0 mg/dLInvalid Interpretation Code7-25[place]WhatSalon Urea nitrogen/Creatinine mass ratio14 mg/mgInvalid Interpretation Code6-20[place]WhatSalon No Panel Informationon 67-42-07759705Rixnqji Interpretation Ikeh474-171CrkhbbwegSquid Facil Otheron 70-13-4479Vlvrzcv mass conc (U)64.2Invalid Interpretation Code<17.0[place]WhatSalon Albumin/Globulin mass ratio1.5 {ratio}Invalid Interpretation Code1.0-2.4[facility] satelliteRapt Cholesterol in VLDL mass conc79.0 mg/dLInvalid Interpretation Code0-39[place]WhatSalon Cholesterol.total/Cholesterol in HDL mass ratio6 {ratio}Invalid Interpretation CodeNewfieldWhatSalon Cobalamin (Vitamin B12) mass toee6576 pg/bP408-141 [place] [employer] Erythrocyte distribution width Ratio (RBC)11.70 % Invalid Interpretation Code11.5-15.5BDocASAP MCHC mass conc (RBC)34.50 g/dLInvalid Interpretation Code32.0-36.0[place] Platelet mean volume Entitic volume (Bld)9.80 fLInvalid Interpretation Code8.3-11.5BDocASAP 255BlanchWhatSalon 18.9Invalid Interpretation Code>5.4BDocASAP 255.0 mg/dLInvalid Interpretation CodeNewfieldWhatSalon 66.0 U/L0-50[place] Urinalysison 61-49-0887Iwgurwz/Creatinine DL <= 20 mg/L mass ratio (U)334.4 mg/gInvalid Interpretation Code0.0-30.0HuddleApp Creatinine mass conc (U)19.20 mg/dLInvalid Interpretation CodeNot Estab. mg/dLBascension all [facility] satelliteRapt Laboratory - Urinalysison 62-92-0638Xwuxtjh Test strip (U) [Mass/Vol]NegativeInvalid Interpretation CodenegativeHuddleApp Protein (U) [Mass/Vol]NegativeInvalid Interpretation CodenegativeNewfieldWhatSalon Metabolic Panelon 12-54-0265Glzwudv mass mddg931.0 mg/dLInvalid Interpretation Qgnv00-103IkiinsuaiHuddleApp Hemoglobin A1c/Hemoglobin.total mass fraction (Bld)9.50 %Invalid Interpretation Code4.3-6.3[facility] satelliteRapt Otheron 96-89-8903Fzzzfmr Test strip mass conc (U) NegativenegativeHuddleApp 226BlanchWhatSalon 226.0 mg/dLInvalid Interpretation CodeHuddleApp Urinalysison 52-31-5324Oiqyhyr mass conc (U)Negative negativeNewfieldWhatSalon Cardiacon 10-17-1166Ncostzspmmg in HDL mass conc30.0 mg/dLInvalid Interpretation Oeac70-527GsuaqbcmlHuddleApp Cholesterol mass toyx400.0 mg/dLInvalid Interpretation Code0-200HuddleApp Triglyceride mass tenh823.0 mg/dLInvalid Interpretation Abma51-115AzcfsafhiHuddleApp Metabolic Panelon 66-51-3542Hmjwzxp mass conc4.50 g/dL Invalid Interpretation Code3.7-4.5BDocASAP ALP enzyme act/vol83.0 U/LInvalid Interpretation Code 31-155[place] [employer] [facility] ALT enzyme act/vol49.0 U/LInvalid Interpretation Code 0-50[place] Anion gap molar conc20 mmol/LInvalid Interpretation Abgi13-10Xtoyrxdtk Hellotravel [facility] AST enzyme act/vol22.0 U/LInvalid Interpretation Code 0-40[place] Bilirubin mass conc0.70 mg/dLInvalid Interpretation Code0.0-1.0NewfieldOM Latam [facility] Calcium mass conc9.70 mg/dLInvalid Interpretation Code 8.5-10.8[facility] [employer] Chloride molar conc93 mmol/LInvalid Interpretation Code 100-112NewfieldOM Latam [facility] CO2 molar conc27 mmol/LInvalid Interpretation Ctfy97-76 [place] [employer] [facility] Creatinine mass conc0.90 mg/dLInvalid Interpretation Code0.5-1.5[facility] Hellotravel [facility] GFR/1.73 sq M predicted among non-blacks MDRD vol rate/area (S/P/Bld)88 mL/min/{1.73_m2}Invalid Interpretation CodeNewfieldWhatSalon Glucose mass ncdw665.0 mg/dLInvalid Interpretation Code 80-117NewfieldOM [place] [facility] Hemoglobin A1c/Hemoglobin.total mass fraction (Bld)10.0 %Invalid Interpretation Code4.3-6.3Bskagit valley hospitalSquid Facil Potassium molar conc4.0 mmol/LInvalid Interpretation Code3.5-5.3Bskagit valley hospitalSquid Facil Protein mass conc7.70 g/dLInvalid Interpretation Code 6.3-7.9[facility] satelliteRapt Sodium molar arnz657 mmol/LInvalid Interpretation Code 135-148H[employer] Urea nitrogen mass conc13.0 mg/dLInvalid Interpretation Code7-25[place] Urea nitrogen/Creatinine mass ratio14 mg/mgInvalid Interpretation Code6-20[place] Otheron 81-53-4893Qxefqsc mass conc (U)141.8Invalid Interpretation Code<17.0HuddleApp Albumin/Globulin mass ratio1.4 {ratio}Invalid Interpretation Code1.0-2.4[facility] satelliteRapt Cholesterol in VLDL mass eriw950.0 mg/dLInvalid Interpretation Code0-39[place] Cholesterol.total/Cholesterol in HDL mass ratio9 {ratio}Invalid Interpretation CodeHuddleApp 240BlanchWhatSalon 49.0 U/L0-50[place] 240.0 mg/dLInvalid Interpretation CodeNewfieldWhatSalon Urinalysison 55-19-4285Vnplnhr/Creatinine DL <= 20 mg/L mass ratio (U)179.5 mg/gInvalid Interpretation Code0.0-30.0HuddleApp Creatinine mass conc (U)79.0 mg/dLInvalid Interpretation CodeNot Estab. mg/dLBascension all saints hospital satelliteRapt Laboratory - Chemistry and Chemistry - challengeon 20-40-0267Vlfmdzikk Ql (U)NegativeInvalid Interpretation CodeNegativeHuddleApp Ketones Ql (U)NegativeInvalid Interpretation Code NegativeNewfieldWhatSalon Urobilinogen (U) [Mass/Vol]normalInvalid Interpretation CodenormalLivingston [employer] Laboratory - Hematology and Cell countson 11-25-2017 Hemoglobin Ql (U)NegativeInvalid Interpretation CodeNegativeLivingston [employer] Laboratory - Urinalysison 30-67-3954Vdbqyosvq esterase Test strip Ql (U)NegativeInvalid Interpretation CodeNegativeNewfieldWhatSalon Nitrite Ql (U)NegativeInvalid Interpretation Code NegativeNewfieldWhatSalon Protein Ql (U)NegativeInvalid Interpretation Code NegativeNewfieldWhatSalon Metabolic Panelon 81-26-6448Dlkaxij mass tzor741.0 mg/dLInvalid Interpretation Nnbz12-739Dryyobfrs [employer] Hemoglobin A1c/Hemoglobin.total mass fraction (Bld)8.60 %Invalid Interpretation Code4.3-6.3[facility] [employer] Otheron 68-52-9280Umkpavxyu Ql (U)NegativeNegative [place] [employer] [facility] Glucose Test strip mass conc (U)4+Invalid Interpretation CodeNegativeNew[place]WhatSalon Hemoglobin Ql (U)NegativeNegativeNewfieldWhatSalon Nitrite Ql (U)NegativeNegUNC Health Rex Holly SpringsWhatSalon pH (U)5 [pH]Invalid Interpretation Code4.5-7.8Bskagit valley hospitalSquid Facil Protein Ql (U)NegativeNegUNC Health Rex Holly SpringsWhatSalon Urobilinogen Test strip mass conc (U)normalnormal MonroeMarginLeft 29417754BhiwpwyafWhatSalon 200.0 mg/dLInvalid Interpretation CodeNewfieldWhatSalon Urinalysison 04-34-2454Zttvtif Nom (U)ClearInvalid Interpretation CodeClearBlanshasta regional medical center [employer] Color Nom (U)yellowInvalid Interpretation Codeyellow [place] [employer] Ketones Ql (U)NegativeNegativeNewfieldWhatSalon Leukocyte esterase Test strip Ql (U)NegativeNegative MonroeMarginLeft Specific gravity Relative Density (U)1.010Invalid Interpretation Code1.003-1.029[place] Cardiacon 06-00-3056Pcosmebysnn in HDL mass conc39.0 mg/dLInvalid Interpretation Mucp26-960PlhjopjnaHuddleApp Cholesterol in LDL mass pasa638.0 mg/dLInvalid Interpretation Code0-130[place] Cholesterol mass uqrv152.0 mg/dLInvalid Interpretation Code0-200[place] Triglyceride mass rzog098.0 mg/dLInvalid Interpretation Pady49-131RboarjoiuWhatSalon Metabolic Panelon 95-96-3939YAX enzyme act/vol52.0 U/L Invalid Interpretation Code0-50HuddleApp Anion gap molar conc17 mmol/LInvalid Interpretation Itos93-58LilaxsbhmHuddleApp AST enzyme act/vol38.0 U/LInvalid Interpretation Code 0-40Phone[employer] Calcium mass conc9.50 mg/dLInvalid Interpretation Code 8.5-10.8Bskagit valley hospitalSquid Facil Chloride molar conc98 mmol/LInvalid Interpretation Code 100-112[place] CO2 molar conc29 mmol/LInvalid Interpretation Ufyo56-71 [place] [employer] Creatinine mass conc0.90 mg/dLInvalid Interpretation Code0.5-1.5Bskagit valley hospitalSquid Facil GFR/1.73 sq M predicted among non-blacks MDRD vol rate/area (S/P/Bld)88 mL/min/{1.73_m2}Invalid Interpretation CodeNewfieldWhatSalon Glucose mass jsof037.0 mg/dLInvalid Interpretation Code 80-117[place] Hemoglobin A1c/Hemoglobin.total mass fraction (Bld)8.40 %Invalid Interpretation Code4.3-6.3[facility] satelliteRapt Potassium molar conc3.8 mmol/LInvalid Interpretation Code3.5-5.3Bskagit valley hospitalSquid Facil Sodium molar aifm222 mmol/LInvalid Interpretation Code 135-148[place] Urea nitrogen mass conc16.0 mg/dLInvalid Interpretation Code7-25HuddleApp Urea nitrogen/Creatinine mass ratio18 mg/mgInvalid Interpretation Code6-20HuddleApp Otheron 69-11-6742Meqywim mass conc (U)160.5Invalid Interpretation Code<17.0HuddleApp Cholesterol in VLDL mass conc60.0 mg/dLInvalid Interpretation Code0-39Phone[employer] Cholesterol.total/Cholesterol in HDL mass ratio6 {ratio}Invalid Interpretation CodeNewfieldWhatSalon 194[place] [employer] 194.0 mg/dLInvalid Interpretation CodeNewfieldWhatSalon 52.0 U/L0-50[place] Urinalysison 09-87-5409Qeqokry/Creatinine DL <= 20 mg/L mass ratio (U)105.5 mg/gInvalid Interpretation Code0.0-30.0[place] Creatinine mass conc (U)152.10 mg/dLInvalid Interpretation CodeNot Estab. mg/dLBbucyrus community hospital [employer] Laboratory - Urinalysison 13-80-0116Hmfsoox (U) [Mass/Vol]NegativeInvalid Interpretation CodenegativeNewfieldWhatSalon Metabolic Panelon 83-51-0923Tnykqbg mass wejb072.0 mg/dLInvalid Interpretation Vprv62-056SydefxqbgWhatSalon Hemoglobin A1c/Hemoglobin.total mass fraction (Bld)8.30 %Invalid Interpretation Code4.3-6.3Bskagit valley hospitalSquid Facil Otheron 59-44-0320Ymswkkr Test strip mass conc (U)trace Invalid Interpretation CodenegativeNewfieldWhatSalon pH (U)6.0 [pH]Invalid Interpretation Code4.5-7.8 [place] [employer] 192BlanchWhatSalon 192.0 mg/dLInvalid Interpretation CodeNewfieldWhatSalon Urinalysison 73-62-4126Uewgqsy mass conc (U)Negative negativeNewfieldWhatSalon Laboratory - Chemistry and Chemistry - challengeon 64-87-0137Ckqsbtkta Ql (U)NegativeInvalid Interpretation CodeNegativePhonezoo Communications Ketones Ql (U)NegativeInvalid Interpretation Code NegativeHuddleApp Urobilinogen (U) [Mass/Vol]normalInvalid Interpretation CodenormalNewfieldWhatSalon Laboratory - Hematology and Cell countson 03-29-2017 Hemoglobin Ql (U)NegativeInvalid Interpretation CodeNegativeBAC ON TRACconey island hospitalWhatSalon Laboratory - Urinalysison 84-56-6333Cjceqnqai esterase Test strip Ql (U)NegativeInvalid Interpretation CodeNegativePhonezoo Communications Nitrite Ql (U)NegativeInvalid Interpretation Code NegativeHuddleApp Protein Ql (U)NegativeInvalid Interpretation Code NegativeNewfieldWhatSalon Metabolic Panelon 23-66-5655Xieceex mass jgwt204.0 mg/dLInvalid Interpretation Hegg50-828SpxajpqhiHuddleApp Hemoglobin A1c/Hemoglobin.total mass fraction (Bld)8.0 %Invalid Interpretation Code4.3-6.3Blanshasta [facility] medical center [employer] Otheron 33-22-3502Eclzlpn mass conc (U)< 12.0Invalid Interpretation Code< 17.0 ug/mLNewfieldWhatSalon Bilirubin Ql (U)NegativeNegativePhonezoo Communications Glucose Test strip mass conc (U)4+Invalid Interpretation CodeNegativePhonezoo Communications Hemoglobin Ql (U)NegativeNegativePhonezoo Communications Nitrite Ql (U)NegativeNegnorthstar hospitalPhonezoo Communications pH (U)6 [pH]Invalid Interpretation Code4.5-7.8[facility]bu[facility] [employer] Protein Ql (U)NegativeNegativeA[facility] Brandkids [facility] Urobilinogen Test strip mass conc (U)normalnormal [facility] [employer] [facility] 183BlanchOM Latam [facility] 183.0 mg/dLInvalid Interpretation CodeNewfieldOM Latam [facility] Urinalysison 99-84-4117Zhddgci Nom (U)clearInvalid Interpretation CodeClearBMarietta Osteopathic Clinic Brandkids [facility] Color Nom (U)yellowInvalid Interpretation Codeyellow [facility] [employer] [facility] Creatinine mass conc (U)14.20 mg/dLInvalid Interpretation CodeNot Estab. mg/dLBbucyrus community hospital Hellot[employer] [facility] Ketones Ql (U)NegativeNegativeNewfieldGreen Dot Corporation [place] [employer] [facility] Leukocyte esterase Test strip Ql (U)NegativeNegative [facility] [employer] [facility] Specific gravity Relative Density (U)1.015Invalid Interpretation Code1.003-1.029[place] [employer] [facility] Laboratory - Chemistry and Chemistry - challengeon 00-74-9924Rwrrrrfky Ql (U)NegativeInvalid Interpretation CodeNegativeNewfieldOM Latam [facility] Ketones Ql (U)NegativeInvalid Interpretation Code NegativeNewfieldOM Latam [facility] Urobilinogen (U) [Mass/Vol]normalInvalid Interpretation CodenormalNewfieldOM Latam [facility] Laboratory - Urinalysison 39-89-7757Lnorsoldl esterase Test strip Ql (U)NegativeInvalid Interpretation CodeNegativeNewfieldWhatSalon Nitrite Ql (U)NegativeInvalid Interpretation Code NegativeNewfieldWhatSalon Metabolic Panelon 05-40-3348Qpegjqw mass came971.0 mg/dLInvalid Interpretation Cbiv28-351ObjywmgpsWhatSalon Hemoglobin A1c/Hemoglobin.total mass fraction (Bld)6.90 %Invalid Interpretation Code4.3-6.3Bskagit valley hospitalSquid Facil Otheron 88-83-2284Dmsboyncx Ql (U)NegativeNegative MonroeMarginLeft Glucose Test strip mass conc (U)4+Invalid Interpretation CodeNegUNC Health Rex Holly SpringsOM Latam [facility] Hemoglobin Ql (U)TraceInvalid Interpretation Code NegativeNewfieldWhatSalon Nitrite Ql (U)NegativeNegativeNewfieldOM Latam [facility] pH (U)6 [pH]Invalid Interpretation Code4.5-7.8Bskagit valley hospitalSquid Facil Protein Ql (U)1+Invalid Interpretation CodeNegative MonroeDropbox [facility] Urobilinogen Test strip mass conc (U)normalnormal MonroeDropbox [facility] 151BlanchOM Latam [facility] 151.0 mg/dLInvalid Interpretation [facility] CenterOM Latam [facility] Urinalysison 86-18-8027Cvppbnj Nom (U)clearInvalid Interpretation CodeClearBskagit valley hospitalSquid Facil Color Nom (U)yellowInvalid Interpretation Codeyellow MonroeMarginLeft Ketones Ql (U)NegativeNegativeBAC ON TRACconey island hospitalWhatSalon Leukocyte esterase Test strip Ql (U)NegativeNegative MonroeDropbox [facility] Specific gravity Relative Density (U)1.010Invalid Interpretation Code1.003-1.029[place] Cardiacon 09-47-0216Emsexfwvziu in HDL mass conc32.0 mg/dLInvalid Interpretation Qscw37-430NyajfeovxWhatSalon Cholesterol in LDL mass conc80.0 mg/dLInvalid Interpretation Code0-130[place] Cholesterol mass zbdr142.0 mg/dLInvalid Interpretation Code0-200[place]What[facility] Triglyceride mass rgve406.0 mg/dLInvalid Interpretation Yrgp33-035IbtfwtelqWhatSalon Metabolic Panelon 57-59-5176LYK enzyme act/vol48.0 U/L Invalid Interpretation Code0-50NewfieldOM Latam [facility] Anion gap molar conc20 mmol/LInvalid Interpretation Ggig45-00VykdnggiqWhatSalon AST enzyme act/vol22.0 U/LInvalid Interpretation Code 0-40[place]What[place] Calcium mass conc9.70 mg/dLInvalid Interpretation Code 8.5-10.8Bskagit valley hospitalSquid Facil Chloride molar mqnt022 mmol/LInvalid Interpretation Bjxv542-988WztqcsseyWhatSalon CO2 molar conc26 mmol/LInvalid Interpretation Uhpj01-91 MonroeDropbox [facility] Creatinine mass conc1.10 mg/dLInvalid Interpretation Code0.5-1.5[facility] satelliteRapt GFR/1.73 sq M predicted among non-blacks MDRD vol rate/area (S/P/Bld)70 mL/min/{1.73_m2}Invalid Interpretation CodePhonezoo Communications Glucose mass rwks180.0 mg/dLInvalid Interpretation Code 80-117Phone[employer] Hemoglobin A1c/Hemoglobin.total mass fraction (Bld)7.10 %Invalid Interpretation Code4.3-6.3Bskagit valley hospitalSquid Facil Potassium molar conc4.1 mmol/LInvalid Interpretation Code3.5-5.3Bskagit valley hospitalSquid Facil Sodium molar bjyz529 mmol/LInvalid Interpretation Code 135-148Phone[employer] Urea nitrogen mass conc18.0 mg/dLInvalid Interpretation Code7-25HuddleApp Urea nitrogen/Creatinine mass ratio16 mg/mgInvalid Interpretation Code6-20[employer] Otheron 20-28-0139Ffuxeixiopo in VLDL mass conc68.0 mg/dLInvalid Interpretation Code0-39[employer] Cholesterol.total/Cholesterol in HDL mass ratio6 {ratio}Invalid Interpretation [employer] 157[employer] 48.0 U/L0-50HuddleApp 157.0 mg/dLInvalid Interpretation CodePhonezoo Communications Laboratory - Chemistry and Chemistry - challengeon 86-78-0232Jitpwboyr Ql (U)NegativeInvalid Interpretation CodeNegativePhonezoo Communications Urobilinogen (U) [Mass/Vol]normalInvalid Interpretation CodenormalPhonezoo Communications Laboratory - Hematology and Cell countson 07-27-2016 Hemoglobin Ql (U)NegativeInvalid Interpretation CodeNegativePhonezoo Communications Laboratory - Urinalysison 91-93-3778Scoeppkmd esterase Test strip Ql (U)NegativeInvalid Interpretation CodeNegativePhonezoo Communications Nitrite Ql (U)NegativeInvalid Interpretation Code NegativeHuddleApp Protein Ql (U)NegativeInvalid Interpretation Code NegativeHuddleApp Metabolic Panelon 30-62-0234Rxzbr gap molar conc19 mmol/LInvalid Interpretation Ltgk06-31BiznvbopmPhonezoo Communications Calcium mass conc9.90 mg/dLInvalid Interpretation Code 8.5-10.8BDocASAP Chloride molar conc96 mmol/LInvalid Interpretation Code 100-112Phone[employer] CO2 molar conc29 mmol/LInvalid Interpretation Nzyt07-85 [place] [employer] Creatinine mass conc1.10 mg/dLInvalid Interpretation Code0.5-1.5BDocASAP GFR/1.73 sq M predicted among non-blacks MDRD vol rate/area (S/P/Bld)70 mL/min/{1.73_m2}Invalid Interpretation CodePhonezoo Communications Glucose mass pnzw861.0 mg/dLInvalid Interpretation Code 80-117Phone[employer] Hemoglobin A1c/Hemoglobin.total mass fraction (Bld)7.50 %Invalid Interpretation Code4.3-6.3BDocASAP Potassium molar conc3.9 mmol/LInvalid Interpretation Code3.5-5.3BDocASAP Sodium molar waef707 mmol/LInvalid Interpretation Code 135-148[place]What[place]on Urea nitrogen mass conc14.0 mg/dLInvalid Interpretation Code7-25[place] [employer] Urea nitrogen/Creatinine mass ratio13 mg/mgInvalid Interpretation Code6-20[place] [employer] Otheron 42-65-6524Prjdlmx mass conc (U)< 12.0Invalid Interpretation Code< 17.0 ug/mLNewfieldWhatSalon Bilirubin Ql (U)NegativeNegativeNewfieldWhatSalon Glucose Test strip mass conc (U)4+Invalid Interpretation CodeNegUNC Health Rex Holly SpringsOM Latam [facility] Hemoglobin Ql (U)NegativeNegativeNewfieldWhatSalon Nitrite Ql (U)NegativeNegUNC Health Rex Holly SpringsOM Latam [facility] pH (U)5 [pH]Invalid Interpretation Code4.5-7.8[facility] [employer] [facility] Protein Ql (U)NegativeNegativeNewfieldWhatSalon Urobilinogen Test strip mass conc (U)normalnormal [place] [employer] [facility] 169BlanchOM Latam [facility] 169.0 mg/dLInvalid Interpretation CodeNewfieldOM Latam [facility] Thyroidon 15-81-4321E0 mass conc5.55 ug/dLInvalid Interpretation Code5.00-12.00[place]What[place] Thyrotropin Qn2.71 m[IU]/LInvalid Interpretation Code 0.50-4.00[place]What[place] Urinalysison 36-35-0619Uqkwnmj Nom (U)clearInvalid Interpretation CodeClearBbucyrus community hospital [employer] Color Nom (U)yellowInvalid Interpretation Codeyellow MonroeMarginLeft Creatinine mass conc (U)85.80 mg/dLInvalid Interpretation CodeNot Estab. mg/dLBskagit valley hospitalSquid Facil Ketones Ql (U)1+Invalid Interpretation CodeNegative MonroeMarginLeft Leukocyte esterase Test strip Ql (U)NegativeNegative MonroeMarginLeft Specific gravity Relative Density (U)1.015Invalid Interpretation Code1.003-1.029[place]WhatSalon Laboratory - Chemistry and Chemistry - challengeon 80-61-6380Zuvzedwcv Ql (U)NegativeInvalid Interpretation CodeNegativeNewfieldWhatSalon Ketones Ql (U)NegativeInvalid Interpretation Code NegativeNewfieldWhatSalon Urobilinogen (U) [Mass/Vol]normalInvalid Interpretation CodenormalNewfieldWhatSalon Laboratory - Hematology and Cell countson 03-04-2016 Hemoglobin Ql (U)NegativeInvalid Interpretation CodeNegativeNewfieldWhatSalon Laboratory - Urinalysison 63-62-0790Ibhfgzhjw esterase Test strip Ql (U)NegativeInvalid Interpretation CodeNegativePhonezoo Communications Nitrite Ql (U)NegativeInvalid Interpretation Code NegativePhonezoo Communications Protein Ql (U)NegativeInvalid Interpretation Code NegativeHuddleApp Metabolic Panelon 43-98-5190Ibnov gap molar conc16 mmol/LInvalid Interpretation Xkmx35-06YpkerafqiPhonezoo Communications Calcium mass conc10.30 mg/dLInvalid Interpretation Code 8.5-10.8BDocASAP Chloride molar conc99 mmol/LInvalid Interpretation Code 100-112HuddleApp CO2 molar conc30 mmol/LInvalid Interpretation Zwah40-77 MonroeMarginLeft Creatinine mass conc1.0 mg/dLInvalid Interpretation Code0.5-1.5[facility] satelliteRapt GFR/1.73 sq M predicted among non-blacks MDRD vol rate/area (S/P/Bld)79 mL/min/{1.73_m2}Invalid Interpretation CodeNewfieldWhatSalon Glucose mass msat169.0 mg/dLInvalid Interpretation Code 80-117[place]WhatSalon Hemoglobin A1c/Hemoglobin.total mass fraction (Bld)6.70 %Invalid Interpretation Code4.3-6.3[facility] satelliteRapt Potassium molar conc4.1 mmol/LInvalid Interpretation Code3.5-5.3BOctane Lendingpaulding county hospitalSquid Facil Sodium molar frsm625 mmol/LInvalid Interpretation Code 135-148[place]WhatSalon Urea nitrogen mass conc12.0 mg/dLInvalid Interpretation Code7-25H[employer] Urea nitrogen/Creatinine mass ratio12 mg/mgInvalid Interpretation Code6-20H[employer] Otheron 89-54-0932Gmleonpid Ql (U)NegativeNegative MonroeMarginLeft Glucose Test strip mass conc (U)4+Invalid Interpretation CodeNegativeNewfieldWhatSalon Hemoglobin Ql (U)NegativeNegativeNewfieldWhatSalon Nitrite Ql (U)NegativeNegativeBAC ON TRACconey island hospitalWhatSalon pH (U)6 [pH]Invalid Interpretation Code4.5-7.8Bskagit valley hospitalSquid Facil Protein Ql (U)NegativeNegativeBAC ON TRACconey island hospitalWhatSalon Urobilinogen Test strip mass conc (U)normalnormal MonroeMarginLeft 146BlanchWhatSalon 146.0 mg/dLInvalid Interpretation [facility] CenterWhat[facility]on Urinalysison 83-64-3925Hhiicva Nom (U)clearInvalid Interpretation CodeClearBskagit valley hospitalSquid Facil Color Nom (U)yellowInvalid Interpretation Codeyellow MonroeMarginLeft Ketones Ql (U)NegativeNegativeBAC ON TRACconey island hospitalWhatSalon Leukocyte esterase Test strip Ql (U)NegativeNegative [employer] Specific gravity Relative Density (U)1.015Invalid Interpretation Code1.003-1.029[place]WhatSalon Laboratory - Chemistry and Chemistry - challengeon 34-34-8059Dbaictogq Ql (U)NegativeInvalid Interpretation CodeNegativePhonezoo Communications Urobilinogen (U) [Mass/Vol]normalInvalid Interpretation CodenormalNewfieldWhatSalon Laboratory - Hematology and Cell countson 11-26-2015 Hemoglobin Ql (U)NegativeInvalid Interpretation CodeNegOptiNose Laboratory - Urinalysison 31-98-9609Dkseaaodr esterase Test strip Ql (U)NegativeInvalid Interpretation CodeNegnorthstar hospitalBlanchWhatSalon Nitrite Ql (U)NegativeInvalid Interpretation Code NegativeNewfieldWhatSalon Protein Ql (U)NegativeInvalid Interpretation Code NegativeNewfieldOM Latam [facility] Metabolic Panelon 87-52-5850Tyvhlnf mass ozze400.0 mg/dLInvalid Interpretation Bchd91-636HpmsedgyyWhatSalon Hemoglobin A1c/Hemoglobin.total mass fraction (Bld)9.70 %Invalid Interpretation Code4.3-6.3[facility] [employer] Otheron 75-39-7179Wgpeuhk mass conc (U)< 12.0Invalid Interpretation Code< 4.0-17.0[place]WhatSalon Bilirubin Ql (U)NegativeNegativeNewfieldOM Latam [facility] Glucose Test strip mass conc (U)4+Invalid Interpretation CodeNegativeNewfieldOM Latam [facility] Hemoglobin Ql (U)NegativeNegativeNewfieldWhatSalon Nitrite Ql (U)NegativeNegUNC Health Rex Holly SpringsWhatSalon pH (U)6 [pH]Invalid Interpretation Code4.5-7.8Bskagit valley hospitalNext [employer] Networks [facility] Protein Ql (U)NegativeNegativeNewfieldOM Latam [facility] Urobilinogen Test strip mass conc (U)normalnormal [place] [employer] [facility] [id number] 232.0 mg/dLInvalid Interpretation CodeNewfieldOM Latam [facility] Thyroidon 46-21-3923O4 mass conc5.77 ug/dLInvalid Interpretation Code5.00-12.00BlanchWhatSalon Thyrotropin Qn2.60 m[IU]/LInvalid Interpretation Code 0.50-4.00[facility] [employer] [facility] Urinalysison 63-45-1242Dvjmmrn Nom (U)clearInvalid Interpretation CodeClearBMarietta Osteopathic Clinic Brandkids [facility] Color Nom (U)yellowInvalid Interpretation Codeyellow [facility] [employer] [facility] Creatinine mass conc (U)66.20 mg/dLInvalid Interpretation CodeNot Estab. mg/dLBMarietta Osteopathic Clinic [employer] [facility] Ketones Ql (U)2+Invalid Interpretation CodeNegative [facility] [employer] [facility] Leukocyte esterase Test strip Ql (U)NegativeNegative [facility] [employer] [facility] Specific gravity Relative Density (U)1.010Invalid Interpretation Code1.003-1.029[facility] [employer] [facility] Laboratory - Chemistry and Chemistry - challengeon 42-77-8417Qpuitalv [Mass/Vol]ug/dLInvalid Interpretation Code3.1-22.4BMarietta Osteopathic Clinic [employer] [facility] Otheron 40-25-9370Xluvolst mass concug/dL3.1-22.4 [place] [employer] [facility] Laboratory - Chemistry and Chemistry - challengeon 54-17-5143Sawinhvey Ql (U)NegativeInvalid Interpretation CodeNegativeAultman Hospital Brandkids [facility] Urobilinogen (U) [Mass/Vol]normalInvalid Interpretation CodenormalAultman Hospital Brandkids [facility] Laboratory - Hematology and Cell countson 10-29-2015 Hemoglobin Ql (U)NegativeInvalid Interpretation CodeNegativeAultman Hospital Brandkids [facility] Laboratory - Urinalysison 39-60-6480Lcrogdopk esterase Test strip Ql (U)NegativeInvalid Interpretation CodeNegativeNewfieldWhatSalon Nitrite Ql (U)NegativeInvalid Interpretation Code NegativeNewfieldWhatSalon Protein Ql (U)NegativeInvalid Interpretation Code NegativeNewfieldWhatSalon Metabolic Panelon 25-08-0686Xogpi gap molar conc20 mmol/LInvalid Interpretation Bowx36-96PiyciqoqvWhatSalon Calcium mass conc9.70 mg/dLInvalid Interpretation Code 8.5-10.8[facility] satelliteRapt Chloride molar conc96 mmol/LInvalid Interpretation Code 100-112NewfieldWhatSalon CO2 molar conc27 mmol/LInvalid Interpretation Dgzp57-06 [place] [employer] Creatinine mass conc0.80 mg/dLInvalid Interpretation Code0.5-1.5[facility] satelliteRapt GFR/1.73 sq M predicted among non-blacks MDRD vol rate/area (S/P/Bld)102 mL/min/{1.73_m2}Invalid Interpretation CodeNewfieldWhatSalon Glucose mass zdgi673.0 mg/dLInvalid Interpretation Code 80-117[place]WhatSalon Hemoglobin A1c/Hemoglobin.total mass fraction (Bld) 12.60 %Invalid Interpretation Code4.3-6.3[facility] satelliteRapt Potassium molar conc3.6 mmol/LInvalid Interpretation Code3.5-5.3BDocASAP Sodium molar lkyc013 mmol/LInvalid Interpretation Code 135-148[employer] Urea nitrogen mass conc11.0 mg/dLInvalid Interpretation Code7-25[place]WhatSalon Urea nitrogen/Creatinine mass ratio14 mg/mgInvalid Interpretation Code6-20[place]WhatSalon Otheron 68-11-1108Tpyikrp mass conc (U)25.9Invalid Interpretation Code0.0-17.0NewfieldOM Lat[place] [facility] Bilirubin Ql (U)NegativeNegativeNewfieldWhatSalon Glucose Test strip mass conc (U)4+Invalid Interpretation CodeNegativeNewfieldWhatSalon Hemoglobin Ql (U)NegativeNegUNC Health Rex Holly SpringsWhatSalon Nitrite Ql (U)NegativeNegUNC Health Rex Holly SpringsWhatSalon pH (U)5 [pH]Invalid Interpretation Code4.5-7.8Bskagit valley hospitalNext [employer] Networks [facility] Protein Ql (U)NegativeNegativeNewfieldWhatSalon Urobilinogen Test strip mass conc (U)normalnormal [place] [employer] [facility] 315BlanchWhatSalon 315.0 mg/dLInvalid Interpretation CodeNewfieldOM Latam [facility] Urinalysison 06-45-9337Copinqa/Creatinine DL <= 20 mg/L mass ratio (U)14.7 mg/gInvalid Interpretation Code0.0-30.0NewfieldOM [place] [facility] Clarity Nom (U)clearInvalid Interpretation CodeClear MonroeMarginLeft Color Nom (U)yellowInvalid Interpretation Codeyellow [place] [employer] Creatinine mass conc (U)175.60 mg/dLInvalid Interpretation CodeNot Estab. mg/dLBlanchaNext New Networks [facility] Ketones Ql (U)3+Invalid Interpretation CodeNegative [place] [employer] [facility] Leukocyte esterase Test strip Ql (U)NegativeNegative [place] [employer] [facility] Specific gravity Relative Density (U)1.020Invalid Interpretation Code1.003-1.029NewfieldOM Latam [facility] Laboratory - Chemistry and Chemistry - challengeon 10-03-0841Cnqxprdsk Ql (U)NegativeInvalid Interpretation CodeNegativeNewfieldOM Latam [facility] Urobilinogen (U) [Mass/Vol]normalInvalid Interpretation CodenormalLivingston Hellot[employer] [facility] Laboratory - Hematology and Cell countson 10-03-2015 Hemoglobin Ql (U)NegativeInvalid Interpretation CodeNegativeNewfieldOM Latam [facility] Laboratory - Urinalysison 02-81-2496Pujaywmhq esterase Test strip Ql (U)NegativeInvalid Interpretation CodeNegativeNewfieldOM Latam [facility] Nitrite Ql (U)NegativeInvalid Interpretation Code NegativeNewfieldOM Latam [facility] Protein Ql (U)NegativeInvalid Interpretation Code NegativeNewfieldOM Latam [facility] Metabolic Panelon 69-53-3164Urqte gap molar conc24 mmol/LInvalid Interpretation Ujhw25-09UgcigdsayOM Latam [facility] Calcium mass conc9.30 mg/dLInvalid Interpretation Code 8.5-10.8[facility] Hellotravel [facility] Chloride molar conc93 mmol/LInvalid Interpretation Code 100-112NewfieldOM Latam [facility] CO2 molar conc23 mmol/LInvalid Interpretation Xmwz26-94 MonroeMarginLeft Creatinine mass conc0.90 mg/dLInvalid Interpretation Code0.5-1.5Bskagit valley hospitalNext [employer] Networks [facility] GFR/1.73 sq M predicted among non-blacks MDRD vol rate/area (S/P/Bld)89 mL/min/{1.73_m2}Invalid Interpretation CodeNewfieldOM Latam [facility] Glucose mass esnv021.0 mg/dLInvalid Interpretation Code 80-117[place]WhatSalon Potassium molar conc4.0 mmol/LInvalid Interpretation Code3.5-5.3Bskagit valley hospitalSquid Facil Sodium molar pskx086 mmol/LInvalid Interpretation Code 135-148[place]WhatSalon Urea nitrogen mass conc13.0 mg/dLInvalid Interpretation Code7-25NewfieldOM [place] [facility] Urea nitrogen/Creatinine mass ratio14 mg/mgInvalid Interpretation Code6-20NewfieldOM [place] [facility] Otheron 91-43-8060Lsdwppbgx Ql (U)NegativeNegative [place] [employer] [facility] C peptide mass conc5.0Invalid Interpretation Code 1.1-4.4Bskagit valley hospitalNext [facility] Networks [facility] Cortisol mass conc4.0 ug/dLInvalid Interpretation Code 3.1-22.4Bskagit valley hospitalNext [employer] Networks [facility] Glucose Test strip mass conc (U)4+Invalid Interpretation CodeNegativeNewfieldOM Latam [facility] Hemoglobin Ql (U)NegativeNegativeNewfieldWhatSalon Nitrite Ql (U)NegativeNegativeNewfieldWhatSalon pH (U)5 [pH]Invalid Interpretation Code4.5-7.8[facility] satelliteRapt Protein Ql (U)NegativeNegativeNewfieldWhatSalon Urobilinogen Test strip mass conc (U)normalnormal MonroeMarginLeft See AboveInvalid Interpretation Code0-0New[place]WhatSalon Urinalysison 69-40-5808Ggdrrsa Nom (U)clearInvalid Interpretation CodeClearBskagit valley hospitalSquid Facil Color Nom (U)yellowInvalid Interpretation Codeyellow MonroeMarginLeft Ketones Ql (U)1+Invalid Interpretation CodeNegative MonroeMarginLeft Leukocyte esterase Test strip Ql (U)NegativeNegative MonroeMarginLeft Specific gravity Relative Density (U)1.005Invalid Interpretation Code1.003-1.029[place]WhatSalon Hematologyon 29-23-8341Qqklswxkc #/vol (Bld)0.10 10*3/uLInvalid Interpretation Code0.0-0.1[facility] satelliteRapt Basophils/100 WBC (Bld)0.70 %Invalid Interpretation Code0.0-1.0[employer] Eosinophils #/vol (Bld)0.30 10*3/uLInvalid Interpretation Code0.0-0.5[facility] satelliteRapt Eosinophils/100 WBC (Bld)3.10 %Invalid Interpretation Code0.0-7.0[employer] ESR Velocity (Bld)31 mm/hInvalid Interpretation Code 0-15[employer] Hematocrit Volume Fraction (Bld)39.50 %Invalid Interpretation Code37.8-51.0[employer] Hemoglobin mass conc (Bld)13.10 g/dLInvalid Interpretation Code12.6-17.0[facility] [employer] [facility] Lymphocytes #/vol (Bld)2.10 10*3/uLInvalid Interpretation Code0.9-3.1[facility] Hellotravel [facility] Lymphocytes/100 WBC (Bld)21.80 %Invalid Interpretation Code15.0-46.0NewfieldOM [place] [facility] MCH Entitic mass (RBC)31.50 pgInvalid Interpretation Code25.7-33.8[facility] Hellotravel [facility] MCV Entitic volume (RBC)94.60 fLInvalid Interpretation Code82.0-98.4Bbucy[facility] Hellot[employer] [facility] Monocytes #/vol (Bld)0.70 10*3/uLInvalid Interpretation Code0.3-1.0NewfieldOM [place] [facility] Monocytes/100 WBC (Bld)7.20 %Invalid Interpretation Code4.0-12.0NewfieldOM [place] [facility] Neutrophils #/vol (Bld)6.20 10*3/uLInvalid Interpretation Code1.8-7.9[facility] Hellotravel [facility] Neutrophils/100 WBC (Bld)67.20 %Invalid Interpretation Code43.0-76.0NewfieldOM [place] [facility] Platelets #/vol (Bld)228.0 10*3/uLInvalid Interpretation Dbxx722-475HkdsgwwkpOM Lat[place] [facility] RBC #/vol (Bld)4.180 10*6/uLInvalid Interpretation Code 4.34-5.61NewfieldOM [place] [facility] WBC #/vol (Bld)9.40 10*3/uLInvalid Interpretation Code 3.9-10.3Bskagit valley hospitalSquid Facil Metabolic Panelon 14-03-9955Pdpevea mass concg/dLCLASS 0NewfieldWhatSalon Otheron 59-88-6447Nuilgwgdmxi distribution width Ratio (RBC)12.20 %Invalid Interpretation Code11.5-15.5Bskagit valley hospitalSquid Facil Immune complex IgE Ak51Zkwbfkg Interpretation Code0-100 [place] [employer] [facility] MCHC mass conc (RBC)33.30 g/dLInvalid Interpretation Code32.0-36.0[place]WhatSalon Platelet mean volume Entitic volume (Bld)8.50 fLInvalid Interpretation Code7.4-10.4Bskagit valley hospitalNext [employer] Networks [facility] <0.10Invalid Interpretation CodeCLASS 0NewfieldOM [place] [facility] COMMENTInvalid Interpretation CodeNewfieldOM Lat[place] [facility] Cardiacon 34-28-1816Jlmaqjlyqpq in HDL mass conc60.0 mg/dLInvalid Interpretation Wfdb66-321MzvpevdsgOM [place] [facility] Cholesterol in LDL mass conc58.0 mg/dLInvalid Interpretation Code0-130NewfieldOM [place] [facility] Cholesterol mass fjcc055.0 mg/dLInvalid Interpretation Code0-200[place]WhatSalon Triglyceride mass nbtk222.0 mg/dLInvalid Interpretation Svnz07-272OfhrwspyrWhatSalon Metabolic Panelon 89-05-1877GHD enzyme act/vol64.0 U/L Invalid Interpretation Code0-50[place]WhatSalon Anion gap molar conc18 mmol/LInvalid Interpretation Wcfd16-02PhcitfajuWhatSalon AST enzyme act/vol39.0 U/LInvalid Interpretation Code 0-40[place]WhatSalon Calcium mass conc9.70 mg/dLInvalid Interpretation Code 8.5-10.8Bskagit valley hospitalSquid Facil Chloride molar conc92 mmol/LInvalid Interpretation Code 100-112[place]WhatSalon CO2 molar conc26 mmol/LInvalid Interpretation Spsk56-23 [place] [employer] Creatinine mass conc1.70 mg/dLInvalid Interpretation Code0.5-1.5Bskagit valley hospitalSquid Facil GFR/1.73 sq M predicted among non-blacks MDRD vol rate/area (S/P/Bld)43 mL/min/{1.73_m2}Invalid Interpretation CodeNewfieldWhatSalon Glucose mass lcws286.0 mg/dLInvalid Interpretation Code 80-117[place]WhatSalon Hemoglobin A1c/Hemoglobin.total mass fraction (Bld)8.90 %Invalid Interpretation Code4.3-6.3Bskagit valley hospitalSquid Facil Potassium molar conc4.3 mmol/LInvalid Interpretation Code3.5-5.3Bskagit valley hospitalSquid Facil Sodium molar iacl511 mmol/LInvalid Interpretation Code 135-148[employer] Urea nitrogen mass conc24.0 mg/dLInvalid Interpretation Code7-25[employer] Urea nitrogen/Creatinine mass ratio14 mg/mgInvalid Interpretation Code6-20[employer] Otheron 66-22-7877Xhokbtk mass conc (U)< 12.0Invalid Interpretation Code< 4.0-17.0[place]WhatSalon Cholesterol in VLDL mass conc32.0 mg/dLInvalid Interpretation Code0-39[place]WhatSalon Cholesterol.total/Cholesterol in HDL mass ratio3 {ratio}Invalid Interpretation CodeHuddleApp [id number] 209.0 mg/dLInvalid Interpretation CodeNewfieldWhatSalon 64.0 U/L0-50[place]WhatSalon Urinalysison 82-80-0127Qminxuaxml mass conc (U)186.0 mg/dLInvalid Interpretation CodeNot Estab. mg/dLBlanshasta regional medical center [employer] Vital Signs Date TimeVital SignValuePerforming MloyxdrhlIxfhibfl37-87-5931 14:02-0400Body sluwlf350.3 Diana Yarbrough MD Work Phone: [phone] [place], [place] [address]Evmbvrnqtd97-60-4907 14:02-0400Body mass index (BMI) [Ratio]34.73 kg/c7MuagqKimmie Yarbrough MD Work Phone: [phone] HospitalWwyapglthr66-83-5254 14:02-0400Body dlaysg043.95 kgKimmie Yarbrough MD Work Phone: [phone] [place], [place] [address]Ylwgaaewfi27-57-2961 14:02-0400Heart rate95 /min Kimmie Yarbrough MD Work Phone: [phone] [place], [place] [address]Avvitxlgwm29-85-7106 14:02-0400Respiratory rate18 /minKimmie Yarbrough MD Work Phone: [phone] [place], [place] [address]Zoqwlebyhb80-07-3961 14:02-7133BsQ4% (BldA) [Mass fraction]98 %Kimmie Yarbrough MD Work Phone: [phone] HospitalUnirzgnvld33-35-1813 17:48-0400Body oeoamd196.4 kgWenddanielle PowerPlay Mobileecu health duplin hospitalBAC ON TRACconey island hospitalOM [place] [facility] [phone] 17:48-0400Diastolic blood sujiztkn51 mm[Hg] Cinthia Power[employer] MobileLECOM Health - Corry Memorial HospitalOM [place] [facility] [phone] 17:48-0400Heart rate76 /minWend PachecoLifecare [facility] Hellot[employer] [facility] [id number] 17:48-0400Systolic blood kqzsndbo214 mm[Hg] Cinthia PowerPlay Mobileecu health duplin hospitalBAC ON TRACconey island hospitalOM [place] [facility] [id number] 14:52-0400Body ghcnup736.8 cmEricka Thumb ReadingMonroe Hellot[employer] [facility] [phone] 14:52-0400Body mass index (BMI) [Ratio]36.16 kg/m2Ericka PlayFitnessconey island hospitalOM Latam [facility] Work Phone: [phone] 14:52-0400Body surface area Derived from formula2.38 m2Ericka PlayFitnessconey island hospitalOM [place] [facility] [phone] 14:52-0400Body zldouc726.31 kgEricka Thumb ReadingMonroe Hellot[employer] [facility] Work Phone: [phone] 14:52-0400Diastolic blood egvkqjrb79 mm[Hg] Ericka PlayFitnessconey island hospitalOM [place] [facility] [phone] 14:52-0400Heart rate86 /minEricka PlayFitnessconey island hospitalOM [place] [facility] 47-771146-67834999-72-6889 14:52-0400Systolic blood fovywplk515 mm[Hg] Ericka PlayFitnessconey island hospitalOM Lat[place] [facility] [phone] 15:21-0500Body cikwsf889.34 cmEricka Muniz MD Work Phone: [facility]02-04-2025 15:21-0500 Body mass index (BMI) [Ratio]34.5 kg/m2Ericka Muniz MD Work Phone: [phone])[address] [place], [place] 7436502-04-2025 15:21-0500 Body kdyeus413.49 kgEricka Muniz MD Work Phone: [phone]02-04-2025 15:21-0500 Diastolic blood avicqhjm81 mm[Hg]Ericka Muniz MD Work Phone: [phone]02-04-2025 15:21-0500 Heart ztmt457 /minEricka Muniz MD Work Phone: [phone]02-04-2025 15:21-0500 Respiratory rate20 /minEricka Muniz MD Work Phone: [phone] [place], [place] 7436502-04-2025 15:21-0500 SaO2% (BldA) [Mass fraction]97 %Ericka Muniz MD Work Phone: [phone]02-04-2025 15:21-0500 Systolic blood eltygfyu433 mm[Hg]Ericka Muniz MD Work Phone: [phone]10-17-2024 17:02-0400 Body dareaa852.85 kgWend Value and Budget Housing Corporationconey island hospitalWhatSalon 10-17-2024 17:02-0400Diastolic blood paynsuod34 mm[Hg] Cinthia [employer] [phone] 17:02-0400Heart rate78 /minWend [employer] 10-17-2024 17:02-0400Systolic blood eqzpgnff714 mm[Hg] Cinthia [employer] [phone] 14:06-0400Body ewzrth416.07 cmC[place] [employer] 09-11-2024 14:06-0400Body mass index (BMI) [Ratio]34.52 kg/m2[place] [employer] 09-11-2024 14:06-0400Body surface area Derived from formula2.35 m2Ericka [facility] [employer] [facility] 09-11-2024 14:06-0400Body .68 kgEricka [facility] [employer] [facility] 09-11-2024 14:06-0400Diastolic blood rbyrzfzk60 mm[Hg] Ericka [facility] 09-11-2024 14:06-0400Heart rate72 /minEricka [facility] 09-11-2024 14:06-0400Systolic blood ynnqajer041 mm[Hg] Ericka [facility] 06-05-2024 15:17-0400Body iyxacc941.34 cmAPRN Mark Upton Work Phone: [facility]06-05-2024 15:17-0400 Body zcuhutkypre12.6 [degF]BELT BACK OPERATOR Mark Upton Work Phone: [phone]06-05-2024 15:17-0400 Body jlipnq025.3 kgAPRN Mark Upton Work Phone: [facility]06-05-2024 15:17-0400 Diastolic blood grdrxixd06 mm[Hg]BELT BACK OPERATOR Mark Alexsandra Work Phone: [phone]06-05-2024 15:17-0400 Heart rate97 /minAPRN Mark Alexsandra Work Phone: [facility]06-05-2024 15:17-0400 Respiratory rate18 /minAPRN Mark Alexsandra Work Phone: [facility]06-05-2024 15:17-0400 SaO2% (BldA) [Mass fraction]95 %BELT BACK OPERATOR Mark Alexsandra Work Phone: [facility]06-05-2024 15:17-0400 Systolic blood hvnoebke382 mm[Hg]RADHA Upton Work Phone: [phone] [place], [place] 3933505-25-2024 16:32-0400 Body ekfkai358.34 cmAPRDouglas Upton Work Phone: [phone]05-25-2024 16:32-0400 Body leybfsnewml46.9 [degF]RADHA Upton Work Phone: [phone] [place], [place] 3222705-25-2024 16:32-0400 Body ossoyl804.25 kgAPRDouglas Upton Work Phone: [phone])[address] [place], [place] 3222705-25-2024 16:32-0400 Diastolic blood onljtlbd11 mm[Hg]RADHA Upton Work Phone: [phone])[address] [place], [place] 3222705-25-2024 16:32-0400 Heart rate98 /minRADHA Upton Work Phone: [phone])[address] [place], [place] 3222705-25-2024 16:32-0400 Respiratory rate17 /minAPRDouglas Upton Work Phone: [phone])[address] [place], [place] 3222705-25-2024 16:32-0400 SaO2% (BldA) [Mass fraction]95 %RADHA Upton Work Phone: [phone])[address] [place], [place] 3222705-25-2024 16:32-0400 Systolic blood rumqcnxa509 mm[Hg]RADHA Upton Work Phone: [phone] [place], [place] 9785605-06-2024 14:24-0400 Body cipxvu454.07 cmEricka HangoNewfieldWhatSalon 05-06-2024 14:24-0400Diastolic blood icburupu22 mm[Hg] Ericka PlayFitnessconey island hospitalWhatSalon 05-06-2024 14:24-0400Systolic blood stgcatki877 mm[Hg] Ericka PlayFitnessconey island hospitalWhatSalon 05-06-2024 13:14-0400Body .77 kgEricka Carbay [facility] [phone] 13:14-0400Diastolic blood mm[Hg] Ericka PlayFitnessconey island hospitalOM [place] [facility] [phone] 13:14-0400Heart rate76 /minEricka PlayFitnessconey island hospitalOM [place] [facility] [phone] 13:14-0400Systolic blood jstmyuez865 mm[Hg] Ericka PlayFitnessconey island hospitalOM [place] [facility] Work Phone: [phone] 16:12-0400Body .34 cmEricka Thumb ReadingMonroeDropbox [facility] [phone] 16:12-0400Body mass index (BMI) [Ratio]33.19 kg/m2Ericka [employer] [facility] [phone] 16:12-0400Body surface area Derived from formula2.33 m2Ericka [employer] [facility] [phone] 16:12-0400Body yxmzhm433.96 kgEricka Thumb ReadingMonroeDropbox [facility] [phone] 16:12-0400Diastolic blood pxyizlyz88 mm[Hg] Ericka PlayFitnessconey island hospitalOM [place] [facility] [phone] 16:12-0400Heart rate90 /minEricka [employer] [facility] Work Phone: [phone] 16:12-0400Systolic blood xdkxglbe336 mm[Hg] Ericka [employer] [phone] 16:23-0500Body mdrirt993.34 Lisandra RouterShareNewfieldOM [place] [facility] [phone] 16:23-0500Body mass index (BMI) [Ratio]33.33 kg/b5Kmgrc RouterShareNewfieldWhatSalon 04-403270-09261937-33-4699 16:23-0500Body surface area Derived from formula2.33 z7Ncmnw Viraloidconey island hospitalWhatSalon 48-562480-91561112-32-1695 16:23-0500Body .41 kgEdilberto Viraloidconey island hospitalWhatSalon [phone] 16:23-0500Body weight0.1 {percentile}Edilberto Viraloidconey island hospitalWhatSalon [phone] 16:23-0500Diastolic blood zrhochcb40 mm[Hg] Edilberto Viraloidconey island hospitalWhatSalon [phone] 16:23-0500Heart dxww320 /minEdilberto Jaraeder [place] [employer] [phone] 16:23-0500Systolic blood rvobtzfs727 mm[Hg] Edilberto Viraloidconey island hospitalWhatSalon 11-17-2022 14:45-0500Body bjsirc597.88 cmSelect [facility]11-17-2022 14:45-0500Body mass index (BMI) [Ratio]24.4 kg/l9ErdyypuofSelect Medical [facility]11-17-2022 14:45-0500Body bjreor72.64 kg [facility]11-17-2022 14:39-0500Body jclarqeaxcn67.7 [degF][facility]11-17-2022 14:39-0500Diastolic blood rtruesfl60 mm[Hg][facility]11-17-2022 14:39-0500Heart rate90 [facility] 14:39-0500Respiratory rate20 [facility]11-17-2022 14:39-0500Systolic blood dxxjcoxt180 mm[Hg][facility]10-26-2022 14:50-0400Body pdgles449.88 cm[facility]-2022 14:50-0400Body mass index (BMI) [Ratio]24.4 kg/e7WyejgdxsnSelect [facility]10-26-2022 14:50-0400Body xodxzc52.64 [facility]26-2022 14:36-0400Body itbubhtddzz48.9 [degF][facility]10-26-2022 14:36-0400Diastolic blood mm[Hg][facility] 05-05-2022 14:36-0400Heart zdoc813 [facility] 05-05-2022 14:36-0400Respiratory rate18 [facility] 05-05-2022 14:36-0400Systolic blood ekogzsne496 mm[Hg][facility]10-05-2022 14:46-0400Body jjhues908.88 cm[facility]-05-2022 14:46-0400Body mass index (BMI) [Ratio]24.4 kg/h7CbaorkmerSelect Medical [facility] [place]10-05-2022 14:46-0400Body hgmobq18.64 kg[facility]-05-2022 14:14-0400Body ayorycjnsso27.6 [degF][facility]10-05-2022 14:14-0400Diastolic blood pxiqntit48 mm[Hg] [facility]10-05-2022 14:14-0400Heart xbwi683 /min [facility]10-05-2022 14:14-0400Respiratory rate18 /min [facility]10-05-2022 14:14-0400Systolic blood rzhihacp000 mm[Hg][facility]09-22-2022 18:08-0400Body tlybqa943.88 cm[facility]-2022 18:08-0400Body vbmwnblepzr29.5 [degF][facility]09-22-2022 18:08-0400Body ehkose120.6 kg [facility]09-22-2022 18:08-0400Diastolic blood wkptqinl69 mm[Hg][facility]09-22-2022 18:08-0400Heart nonx921 /min [facility]09-22-2022 18:08-0400Respiratory rate20 /min [facility]09-22-2022 18:08-3221BzW0% (BldA) [Mass fraction]97 %[facility]09-22-2022 18:08-0400Systolic blood cxglfsye230 mm[Hg][facility]08-10-2022 15:25-0400 Body cybyoy789.34 cmJesumma health w[facility]sworth [facility] ritt[facility] medical centery [facility] HospitalBAC ON TRACconey island hospitalOM [place]am [facility] Work Phone: [phone] 15:25-0400Body mass index (BMI) [Ratio]33.75 kg/s2Ubmgwh R-Healthatrium healthBAC ON TRACconey island hospitalOM [place] [facility] Work Phone: [phone] 15:25-0400Body surface area Derived from formula2.35 n2Udpuyz Marchatrium healthBAC ON TRACconey island hospitalOM [place] [facility] Work Phone: [phone] 15:25-0400Body surface area Derived from formula2.34 w7Hmrvnk R-Healthatrium healthBAC ON TRACconey island hospitalOM [place] [facility] Work Phone: [phone] 15:25-0400Body hjzbal176.77 kgJesumma health wadsworth - rittman medical centery R-Healthatrium healthBAC ON TRACconey island hospitalOM [place] [facility] Work Phone: [phone] 15:25-0400Diastolic blood mm[Hg] Franky R-Healthatrium healthBAC ON TRACconey island hospitalOM [place] [facility] Work Phone: [phone] 15:25-0400Heart rate84 /minJesumma health wadsworth - rittman medical centery [facility] MonroeDropbox [facility] Work Phone: [phone] 15:25-0400Systolic blood mm[Hg] Franky The Clearingconey island hospitalOM [place] [facility] Work Phone: [phone] 14:30-0400Body duftdr243.34 cmC[place] [employer] Work Phone: [phone] 14:30-0400Body mass index (BMI) [Ratio]33.75 kg/m2[place] [employer] Work Phone: [phone] 14:30-0400Body surface area Derived from formula2.35 m2Ericka PlayFitnessconey island hospitalOM Latam [facility] Work Phone: [phone] 14:30-0400Body surface area Derived from formula2.34 m2Ericka PlayFitnessconey island hospitalOM [place] [facility] Work Phone: [phone] 14:30-0400Body .77 kgEricka Muniz [place] Hellotravel [facility] Work Phone: [phone] 14:30-0400Diastolic blood bcbopvnb48 mm[Hg] Ericka HangoNewfieldOM [place] [facility] Work Phone: [phone] 14:30-0400Heart rate88 /minEricka HangoNewfieldOM Latam [facility] Work Phone: [phone] 14:30-0400Systolic blood amixavox599 mm[Hg] Ericka PlayFitnessconey island hospitalOM [place]am [facility] Work Phone: [phone] 13:42-0400Body gtyqgd321.34 cmLeroy RouterShareNewfieldOM Latam [facility] Work Phone: [phone] 13:42-0400Body mass index (BMI) [Ratio]33.47 kg/q1Lbmqd RouterShareNewfieldOM Latam [facility] Work Phone: [phone] 13:42-0400Body surface area Derived from formula2.34 g4Mjebs Viraloidconey island hospitalOM [place] [facility] Work Phone: [phone] 13:42-0400Body .86 kgEdilberto Viraloidconey island hospitalOM [place] [facility] Work Phone: [phone] 13:42-0400Diastolic blood phkqxdwa97 mm[Hg] Edilberto Inflection [facility] Work Phone: [phone] 13:42-0400Heart rate84 /minEdilberto BrainBotncDropbox [facility] Work Phone: [phone] 13:42-0400Systolic blood mm[Hg] Edilberto JaraederBlanchOM Latam [facility] 04-12-2022 16:47-0400Body mtvofp141.34 cmDwaynesumma health wadsworth - rittman medical centery [facility] [employer] [facility] 04-12-2022 16:47-0400Body mass index (BMI) [Ratio]34.03 kg/x3Xqeoqm [facility] [employer] [facility] 04-12-2022 16:47-0400Body surface area Derived from formula2.35 o2FuaymyAshtabula County Medical Center Brandkids [facility] 04-12-2022 16:47-0400Body .68 kgAs[facility] Brandkids [facility] 04-12-2022 16:47-0400Diastolic blood nounyuzz23 mm[Hg] Franky [facility] [employer] [facility] 04-12-2022 16:47-0400Heart rate88 /minJegarricky [facility] [employer] [facility] 04-12-2022 16:47-0400Systolic blood aizajxbk385 mm[Hg] Franky [facility] [employer] [facility] 03-10-2022 16:22-0500Body .34 cmDwaynesumma health wadsworth - rittman medical centermichelle [facility] [employer] [facility] 03-10-2022 16:22-0500Body mass index (BMI) [Ratio]34.17 kg/e4VvxgobAshtabula County Medical Center Brandkids [facility] 03-10-2022 16:22-0500Body surface area Derived from formula2.36 t6Frnmqg [facility] [employer] [facility] 03-10-2022 16:22-0500Body iuowes565.13 kgDwaynesumma health wadsworth - rittman medical centerSiteJabber [facility] [employer] [facility] 03-10-2022 16:22-0500Diastolic blood aqgqpphp83 mm[Hg] Franky The Clearingconey island hospitalOM Latam [facility] 03-10-2022 16:22-0500Heart rate84 /minFranky Turpin Frevvo [facility] 03-10-2022 16:22-0500Systolic blood qonkaedr088 mm[Hg] Franky VidalECU Health North HospitalOM [place]am [facility] [id number] 14:40-0500Body xlflgo723.34 Lisandra Inflection [facility] 42-025660-07074918-36-0040 14:40-0500Body mass index (BMI) [Ratio]35.15 kg/s9Sczig [employer] 08-761150-81976132-25-2295 14:40-0500Body surface area Derived from formula2.39 l1Cvwfl [employer] 54-851940-23916057-37-5493 14:40-0500Body vpryya543.31 kgEdilberto [employer] 59-935325-12692192-33-4683 14:40-0500Diastolic blood mawlhgyp97 mm[Hg] Edilberto [employer] 62-268959-57146979-65-8024 14:40-0500Heart rate84 /[employer] [facility] 47-625080-94622062-08-5800 14:40-0500Systolic blood mm[Hg] Edilberto Inflection [facility] 09-09-2021 14:33-0400Body .61 Lisandra [employer] 13-942522-14336231-20-9225 14:33-0400Body mass index (BMI) [Ratio]33.49 kg/g0Wkygy [employer] 90-861658-42887322-14-8808 14:33-0400Body surface area Derived from formula2.36 p8Gijpn Inflection [facility] 09-09-2021 14:33-0400Body erznxf227.45 kgEdilberto Inflection [facility] 54-391456-96718609-07-7960 14:33-0400Diastolic blood zgpzifav73 mm[Hg] Edilberto Viraloidconey island hospitalOM Latam [facility] 09-09-2021 14:33-0400Heart rate88 /minEdilberto ZamoraInnovation Fuels [facility] 09-09-2021 14:33-0400Systolic blood nzwxxnpu638 mm[Hg] Edilberto Inflection [facility] 08-275443-20077565-54-9009 13:35-0400Body .61 cmC[place] Thumb ReadingMonroeDropbox [facility] 06-15-2021 13:35-0400Body mass index (BMI) [Ratio]33.01 kg/m2[place] [employer] - Dein Lernprogramm im Leben [facility] 03-711033-32101174-89-3352 13:35-0400Body surface area Derived from formula2.34 m2[place] [employer] - Dein Lernprogramm im Leben [facility] 66-836562-35123707-39-5268 13:35-0400Body gaodya392.86 kgC[place] Foreside Carbay [facility] 83-140985-21011025-43-8290 13:35-0400Diastolic blood lmufjuvt03 mm[Hg] Ericka [employer] - Dein Lernprogramm im [employer]ben [facility] 83-592631-79629412-30-0465 13:35-0400Heart rate83 /minEricka [employer] - Dein Lernprogramm im Leben [facility] 42-880667-61296328-13-0716 13:35-0400Systolic blood dkdzxcah458 mm[Hg] Ericka [employer] - Dein Lernprogram[employer] im Leben [facility] 03-02-2021 15:15-0500BMI (Body Mass Index)33.56 kg/m2 Edilberto Inflection [facility] 03-02-2021 15:15-0500Body rcubez981.68 kgEdilberto [employer] 76-413077-48852601-88-8677 15:15-0500BP Bwlkaypfb67 mm[Hg]Edilberto [employer] 09-545884-69303515-08-1502 15:15-0500BP Hhxlbkyq270 mm[Hg]Edilberot [employer] Work Phone: [phone] 15:15-0500BSA (Body Surface Area)2.36 m2 Edilberto [employer] Work Phone: [phone] 15:15-7802Hwbawz703.61 [employer] Work Phone: [phone] 15:15-0500Pulse (Heart Rate)104 /minFlagstaff Medical Centergavi [employer] Work Phone: [phone] 17:01-0400BMI (Body Mass Index)33.46 kg/m2 Edilberto [employer] Work Phone: [phone] 17:01-0400Body yxhtfl286.37 Lincoln [employer] Work Phone: [phone] 17:01-0400BP Ghikzbizj16 mm[Hg]Edilbertoappweevr Work Phone: [phone] 17:01-0400BP Zaobmuvm957 mm[Hg]Edilberto [employer] Work Phone: [phone] 17:01-0400BSA (Body Surface Area)2.36 m2 Edilbertoappweevr Work Phone: [phone] 17:01-9350Nixrqi207.61 [employer] Work Phone: [phone] 17:01-0400Pulse (Heart Rate)78 /minITA Software Work Phone: [phone] 17:34-0400BMI (Body Mass Index)33.83 kg/m2 Ericka [employer] Work Phone: [phone] 17:34-0400Body Vqzaeuiyrzi50.8 [degF]Ericka PlayFitnessconey island hospitalWhatSalon Work Phone: [phone] 17:34-0400Body vdlrfa101.59 kgEricka [employer] Work Phone: [phone] 17:34-0400BP Ervaawbwo91 mm[Hg]Ericka [employer] Work Phone: [phone] 17:34-0400BP Ancaudsf785 mm[Hg]Ericka Thumb ReadingMonroeMarginLeft Work Phone: [phone] 17:34-0400BSA (Body Surface Area)2.37 m2Ericka [employer] Work Phone: [phone] 17:34-6221Yjfnpa382.61 cmEricka [employer] Work Phone: [phone] 17:34-0400Pulse (Heart Rate)88 /minEricka [employer] 36-78 14:30-0400Body Bclbspwpogx42.6 [degF][facility], UZ85-30-5262 14:30-0400BP Ctncbkjmy15 mm[Hg][facility], SV05-10-4915 14:30-0400BP Mqnyzyws751 mm[Hg][facility], QM13-89-7570 14:30-0400Pulse (Heart Rate)80 /minSOhio [facility] Surgical [facility], IU71-69-2571 14:30-0400Pulse Auuuhlaq73 %[facility], GT87-12-9437 14:30-0400Respiratory Rate18 /minSOhio Valley Surgical Hospital, MC13-86-1024 08:19-0400BMI (Body Mass Index)33.63 kg/v3DdgzxwMcKenzie-[facility], HZ45-26-0748 08:19-0400Body oblbgp899.49 kgMcKenzie-[facility], VP69-90-1444 08:19-1366Zykuok586.9 [facility], NU37-70-1541 17:01-0400BMI (Body Mass Index)34.24 kg/m2Ericka [employer] Work Phone: [phone] 17:01-0400Body Otodmlpjutl34.5 [degF]Ericka PlayFitnessconey island hospitalWhatSalon Work Phone: [phone] 17:01-0400Body rbrxuk616.95 kgEricka [employer] Work Phone: [phone] 17:01-0400BP Lhwgefopx57 mm[Hg]Ericka Thumb ReadingMonroeMarginLeft Work Phone: [phone] 17:01-0400BP Qzmyhgtd605 mm[Hg]Ericka Thumb ReadingMonroe Hellotravel [facility] Work Phone: [phone] 17:01-0400BSA (Body Surface Area)2.39 m2Ericka [employer] - Dein Lernprogramm im Leben [facility] Work Phone: [phone] 17:01-8122Kkinax853.61 cmEricka [employer] Work Phone: [phone] 17:01-0400Pulse (Heart Rate)100 /minEricka Carbay [facility] Work Phone: [phone] 15:09-0500BMI (Body Mass Index)33.83 kg/m2 Edilberto [employer] Work Phone: [phone] 15:09-0500Body jzeobk569.59 kgGuccigavi [employer] Work Phone: [phone] 15:09-0500BP Tcjxktlee76 mm[Hg]Edilberto [employer] Work Phone: [phone] 15:09-0500BP Aempyxdh854 mm[Hg]Edilberto [employer] 49-332580-01639774-33-4247 15:09-0500BSA (Body Surface Area)2.37 m2 Edilberto [employer] 24-829518-80725501-14-4496 15:09-1611Erqrbq207.61 cmLeroy Sera [employer] 61-718210-30414326-31-8708 15:09-0500Pulse (Heart Rate)80 /minEdilberto [employer] 66-708925-22067563-58-4160 18:11-0500BMI (Body Mass Index)33.51 kg/m2 Ericka [employer] 81-151492-00648116-32-6305 18:11-0500Body znvjye318.13 kgEricka [employer] 91-502761-05643818-19-7192 18:11-0500BP Chgrmfnvg92 mm[Hg]Ericka [employer] 67-697628-68104890-53-3667 18:11-0500BP Twdukylu055 mm[Hg]Ericka [employer] 30-710949-54898963-12-5379 18:11-0500BSA (Body Surface Area)2.37 m2Ericka [employer] 16-601072-37282988-04-8616 18:116464Updxkg026.12 cmEricka [employer] 77-136816-66727764-05-7887 18:11-0500Pulse (Heart Rate)80 /minEricka [employer] 10-08-2019 17:27-0400BMI (Body Mass Index)33.96 kg/m2 Edilberto [employer] 10-08-2019 17:27-0400Body ankwgb203.95 kgEdilberto [employer] 91-709203-58437977-54-6312 17:0BP Gmxydlzbi28 mm[Hg]Edilberto [employer] 78-384153-60382674-84-9559 17:0BP Utdajdog743 mm[Hg]Edilberto [employer] 30-470194-52568568-98-3882 17:BSA (Body Surface Area)2.39 m2 Edilberto [employer] 57-207437-37344021-58-5886 17:0950Elnvoc035.37 cmLjimenezy Branchly 10-08-2019 17:Pulse (Heart Rate)102 /minEdilberto [employer] 91-279930-64044801-40-7620 13:BMI (Body Mass Index)34.3 kg/m2 Ericka [employer] Work Phone: [phone] 13:Body jeeilj417.08 kgEricka [employer] 72-934728-18167460-89-6099 13:0400BP Jxjlowdgb20 mm[Hg]Ericka [employer] 46-952398-99779740-71-8044 13:BP Gjucxgev531 mm[Hg]Ericka [employer] 17-926005-81994773-41-4385 13:BSA (Body Surface Area)2.4 m2Ericka [employer] 58-267233-95832012-52-1061 13:1540Pdtrmy991.37 cmEricka [employer] 83-168303-58357564-98-0239 13:040Pulse (Heart Rate)88 /minEricka [employer] 41-378181-17935237-37-1576 13:490BMI (Body Mass Index)34.5 kg/m2 Edilberto [employer] 37-706018-52057090-25-3121 13:49-0400Body edbqgp904.76 kgEricka Muniz [employer] 52-292516-66657671-67-5048 13:49-0400BP Vnuetnucg99 mm[Hg]Edilberto [employer] 48-475099-23186566-23-1178 13:49-0400BP Gartnnwv804 mm[Hg]Edilberto [employer] Work Phone: [phone] 13:49-0400BSA (Body Surface Area)2.41 m2 Edilberto [employer] 44-499142-69096018-21-5761 13:49-0711Hgbvgu838.37 [employer] 78-638590-67742105-19-6664 13:49-0400Pulse (Heart Rate)90 /minEdilberto [employer] 83-539155-35261873-39-8148 13:49-9934Lwauzh916.76 Lincoln Branch[employer] 89-255436-90558603-89-9411 13:45-0400BMI (Body Mass Index)34.38 kg/m2 Edilberto [employer] 15-456630-95045580-92-6404 13:45-0400Body nsybgr394.4 kgEricka [employer] 71-898494-77447595-91-7604 13:45-0400BP Jhegovmne87 mm[Hg]Edilberto [employer] 41-713318-91340483-87-8253 13:45-0400BP Dpgbyxet486 mm[Hg]Edilberto [employer] 97-407455-43061983-19-1044 13:45-0400BSA (Body Surface Area)2.39 m2 Edilbertoappweevr 33-072048-33614822-53-5596 13:45-6028Toupid271.61 [employer] 27-795873-51702127-48-4265 13:45-0400Pulse (Heart Rate)90 /minEdilberto [employer] 86-609217-56286088-47-9668 13:45-9478Tmifjw600.4 Lincoln [employer] 95-116031-53064551-69-6659 13:14-0500BMI (Body Mass Index)33.74 kg/m2 Edilberto [employer] 11-954130-99335872-20-7702 13:14-0500Body uwqceq113.27 Gerardo [employer] 84-103375-31893517-41-9287 13:14-0500BP Ggqfwzego73 mm[Hg]Edilberto [employer] 18-737310-38872510-00-2792 13:14-0500BP Tiynpbeh493 mm[Hg]Edilberto [employer] 71-955873-34576180-23-7195 13:14-0500BSA (Body Surface Area)2.37 m2 Edilberto [employer] 79-808076-72496967-17-4374 13:14-6175Srrwvh996.61 cmLeroy Branch[employer] 71-003398-23319254-36-9071 13:14-0500Pulse (Heart Rate)84 /minEdilberto [employer] 40-226435-80106167-33-2599 13:14-7718Juwodg344.27 Lincoln [employer] 12-10-2018 13:18-0500Body aqcrxu401.04 Gerardo [employer] 12-10-2018 13:18-0500BP Otpavaovc17 mm[Hg][employer] 12-10-2018 13:18-0500BP Lnfufhan612 mm[Hg][employer] 29-067404-66796235-31-0867 13:180500Pulse (Heart Rate)70 /minEdilberto [employer] Work Phone: [phone] 13:18-4502Vhvmsy040.04 Lincoln [employer] Work Phone: [phone] 14:25-0400BMI (Body Mass Index)32.28 kg/m2 Edilberto [employer] Work Phone: [phone] 14:25-0400Body xecbeq986.96 Gerardo [employer] Work Phone: [phone] 14:25-0400BP Wtjmrxyrp23 mm[Hg]Edilberto [employer] Work Phone: [phone] 14:25-0400BP Xubepixz773 mm[Hg]Edilberto [employer] Work Phone: [phone] 14:25-0400BSA (Body Surface Area)2.34 m2 Edilberto [employer] Work Phone: [phone] 14:257948Qgotvx224.88 cmLeroy Branch[employer] Work Phone: [phone] 14:250400Pulse (Heart Rate)78 /minEdilberto [employer] Work Phone: [phone] 14:25-3417Aragma183.96 Linocln [employer] Work Phone: [phone] 13:34-0400BMI (Body Mass Index)32.55 kg/m2 Edilberto [employer] Work Phone: [phone] 13:34-0400Body .86 Gerardo [employer] 60-847749-49860718-52-5578 13:34-0400BP Ntjhhozsb679 mm[Hg]Edilberto [employer] Work Phone: [phone] 13:34-0400BP Ecqmvxxu717 mm[Hg]Edilberto [employer] Work Phone: [phone] 13:34-0400BSA (Body Surface Area)2.35 m2 Edilberto [employer] Work Phone: [phone] 13:34-2452Amyszw654.88 Lisandra [employer] Work Phone: [phone] 13:34-0400Pulse (Heart Rate)104 /minEdilberto [employer] Work Phone: [phone] 13:34-7457Eyytjh749.86 Lincoln [employer] Work Phone: [phone] 13:50-0400BMI (Body Mass Index)33.36 kg/m2 Edilberto [employer] Work Phone: [phone] 13:50-0400Body vdnyrx680.59 kgEricka Muniz [employer] Work Phone: [phone] 13:50-0400BP Jgtpwzbzr88 mm[Hg]Edilberto [employer] Work Phone: [phone] 13:50-0400BP Iltklpgy533 mm[Hg]Edilberto [employer] Work Phone: [phone] 13:50-0400BSA (Body Surface Area)2.38 m2 Edilberto [employer] Work Phone: [phone] 13:50-0797Dnorec262.88 Lisandra [employer] Work Phone: [phone] 13:50-0400Pulse (Heart Rate)76 /minITA [employer] Work Phone: [phone] 13:50-6681Luefyt464.59 Lincoln [employer] Work Phone: [phone] 13:48-0500BMI (Body Mass Index)33.09 kg/m2 Edilberto [employer] Work Phone: [phone] 13:48-0500Body aoogjy514.68 Gerardo Muniz [employer] Work Phone: [phone] 13:48-0500BP Xuhkflhfp56 mm[Hg]Edilberto [employer] Work Phone: [phone] 13:48-0500BP Cuprdlob182 mm[Hg]Edilberto [employer] Work Phone: [phone] 13:48-0500BSA (Body Surface Area)2.37 m2 Edilbertoappweevr Work Phone: [phone] 13:48-8034Sandau409.88 cmLeroy Branchly Work Phone: [phone] 13:48-0500Pulse (Heart Rate)80 /minEdilberto [employer] Work Phone: [phone] 13:48-9021Isiefs526.68 Lincoln [employer] Work Phone: [phone] 13:30-0500BMI (Body Mass Index)33.63 kg/m2 [facility] [employer] Work Phone: [phone] 13:30-0500Body yxlsxa460.49 Gerardo [employer] Work Phone: [phone] 13:30-0500BP Mjuiuobbz53 mm[Hg][employer] Work Phone: [phone] 13:30-0500BP Eopnyejs654 mm[Hg][employer] Work Phone: [phone] 13:30-0500BSA (Body Surface Area)2.39 m2 Edilberto [employer] [id number] 13:30-9041Pmglrv296.88 Lisandra Branchly Work Phone: [phone] 13:30-0500Pulse (Heart Rate)84 /minEdilberto [employer] 31-857947-19704581-10-6566 13:30-2772Keieqh061.49 Lincoln Branchly 12-18-2017 17:18-0500BMI (Body Mass Index)33.63 kg/m2 [facility] [employer] [id number] 17:18-0500Body .49 kgEricka [employer] [phone] 17:18-0500BP Vvivqvbzz22 mm[Hg][facility]ilberto [employer] 12-18-2017 17:18-0500BP Forzngfo998 mm[Hg]Edilberto [employer] [phone] 17:18-0500BSA (Body Surface Area)2.39 m2 [employer] 12-18-2017 17:187995Wssxkg070.88 Lisandra Branchly 12-18-2017 17:18-0500Pulse (Heart Rate)80 /minEdilberto [employer] [facility] [employer] 12-18-2017 17:18-5689Twgfgd254.49 Lincoln Branchly 70-376493-72906893-31-9887 13:30-0400Body wuwiio283.6 kgEricka [employer] [id number] 13:30-0400BP Nxqlpxdcf39 mm[Hg]Edilberto [employer] Work Phone: [phone] 13:30-0BP Keexjvxt080 mm[Hg][facility]ilberto [employer] Work Phone: [phone] 13:30-0Pulse (Heart Rate)70 /minEdilberto [employer] Work Phone: [phone] 13:308085Warvwj605.6 Lincoln Zamora [employer] Work Phone: [phone] 12:25BMI (Body Mass Index)32.01 kg/m2 [employer]il[employer] Work Phone: [phone] 12:25Body xchole963.05 Gerardo Muniz [employer] Work Phone: [phone] 12:250BP Susdwiedr44 mm[Hg][employer]il[employer]to [employer] Work Phone: [phone] 12:25BP Ctgqvawf334 mm[Hg][employer]il[employer] Work Phone: [phone] 12:BSA (Body Surface Area)2.33 m2 [employer] Work Phone: [phone] 12:3336Cizoxl345.88 cmLeroy Zamora [employer] Work Phone: [phone] 12:25Pulse (Heart Rate)84 /minEdilberto [employer] Work Phone: [phone] 12:5844Omnidf275.05 Lincoln Branchly Work Phone: [phone] 13:42-0400BMI (Body Mass Index)32.01 kg/m2 Edilbertoappweevr Work Phone: [phone] 13:42-0400Body .05 Gerardo Muniz [employer] Work Phone: [phone] 13:42-0400BP Vwnbmuwsf40 mm[Hg][employer]ilberto [employer] Work Phone: [phone] 13:42-0400BP Pgvexiqa361 mm[Hg][employer]ilberto [employer] Work Phone: [phone] 13:420400BSA (Body Surface Area)2.33 m2 [employer]ilber[employer] Work Phone: [phone] 13:420479Ljlgjl038.88 NeilCoupFlipmichelle Branchly Work Phone: [phone] 13:42-0400Pulse (Heart Rate)80 /minEdilberto [employer] Work Phone: [phone] 13:42-2795Xdqoph071.05 Lincoln Branchly Work Phone: [phone] 13:210400BMI (Body Mass Index)32.35 kg/m2 [employer]il[employer] Work Phone: [phone] 13:21-0400Body yktebk566.18 Gerardo Muniz [employer] Work Phone: [phone] 13:21-0400BP Svdskpcii48 mm[Hg][employer]ilberto [employer] Work Phone: [phone] 13:21-0400BP Tukymelr939 mm[Hg][employer]to[employer]ev[employer] Work Phone: [phone] 13:BSA (Body Surface Area)2.34 m2 [employer] Work Phone: [phone] 13:7677Edjwea585.88 NeilAliopartis Work Phone: [phone] 13:21-0400Pulse (Heart Rate)84 /minEdilberto [employer] Work Phone: [phone] 13:21-9497Poxlxu727.18 Lincoln Branchly Work Phone: [phone] 11:37-0400BMI (Body Mass Index)32.75 kg/m2 [employer]il[employer] Work Phone: [phone] 11:37-0400Body cmuabn357.54 Gerardo [employer] 66-127599-24213616-86-0050 11:37-0400BP Yyfhvitiq30 mm[Hg][employer]ilber[employer] 30-684965-14768837-00-4418 11:37-0400BP Enohaekd670 mm[Hg][employer]ilberto [employer] Work Phone: [phone] 11:37-0400BSA (Body Surface Area)2.36 m2 [employer]ilberto [employer] 44-711899-96054731-64-9914 11:37-0706Bluwah961.88 cmLeroy Branchly Work Phone: [phone] 11:37-0400Pulse (Heart Rate)100 /minEdilberto [employer] Work Phone: [phone] 11:37-8694Ceivym702.54 Lincoln Branchly 01-948108-54351718-17-6285 13:51-0500BMI (Body Mass Index)32.96 kg/m2 [employer]il[employer] Work Phone: [phone] 13:51-0500Body ftnsis764.22 Gerardo [employer] 90-500781-33095718-80-6134 13:51-0500BP Qjpfelbaa00 mm[Hg][employer]ilberto [employer] 78-41 13:51-0500BP Bovtaahz216 mm[Hg][employer] Work Phone: [phone] 13:51-0500BSA (Body Surface Area)2.37 m2 [employer]to[employer] Work Phone: [phone] 13:51-8834Gghotd402.88 Lisandra Branchly Work Phone: [phone] 13:51-0500Pulse (Heart Rate)108 /[employer] Work Phone: [phone] 13:51-1762Phjhju826.22 Lincoln Branchly Work Phone: [phone] 11:23-0400BMI (Body Mass Index)32.64 kg/m2 [employer]to[employer] Work Phone: [phone] 11:23-0400Body aiwcjo623.14 Gerardo Muniz [employer] Work Phone: [phone] 11:23-0400BP Zhcwfvrkz02 mm[Hg][employer] Work Phone: [phone] 11:23-0400BP Frkftoby934 mm[Hg][employer] Work Phone: [phone] 11:23-0400BSA (Body Surface Area)2.31 m2 [employer]il[employer]toapp[employer]ev[employer] Work Phone: [phone] 11:23-8186Iudrng663.34 Lisandra Branchly Work Phone: [phone] 11:23-0400Pulse (Heart Rate)80 /min[employer] Work Phone: [phone] 11:23-4055Qtcnxu978.14 Lincoln Branchly 46-76 13:44-0400BMI (Body Mass Index)32.85 kg/m2 [employer]il[facility] Work Phone: [phone] 13:44-0400Body .82 kgEricka Muniz [employer] Work Phone: [phone] 13:44-0400BP Dxoexityp62 mm[Hg][employer]ilberto [employer] Work Phone: [phone] 13:44-0400BP Hhpzkkul934 mm[Hg][employer]ilberto [employer] Work Phone: [phone] 13:440400BSA (Body Surface Area)2.31 m2 [employer] Work Phone: [phone] 13:44-0077Swfpky721.34 cmLeroy Branchly Work Phone: [phone] 13:44-0400Pulse (Heart Rate)96 /minEdilberto [employer] Work Phone: [phone] 13:44-1982Uygwil862.82 Lincoln Branchly Work Phone: [phone] 14:54-0400BMI (Body Mass Index)32.71 kg/m2 [employer]il[employer] Work Phone: [phone] 14:54-0400Body kigmre763.37 kgEricka [employer] Work Phone: [phone] 14:54-0400BP Cdbsefbcj27 mm[Hg][employer] Work Phone: [phone] 14:54-0400BP Mfnhtnef975 mm[Hg]Edilbertoappweevr 63-194867-93177277-69-5657 14:54-0400BSA (Body Surface Area)2.31 m2 [employer] 63-462645-97469835-01-0984 14:54-8911Dkuuvr749.34 Lisandra Branchly Work Phone: [phone] 14:54-0400Pulse (Heart Rate)88 /minEdilberto [employer] 79-855518-15129995-69-8570 14:54-4962Dbywet886.37 kgEdilberto Branchly Work Phone: [phone] 13:34-0400BMI (Body Mass Index)33.89 kg/m2 [employer] 86-859975-72393666-91-7139 13:34-0400Body awgbyq996.22 kgEricka [employer] Work Phone: [phone] 13:34-0400BP Zmudfcjlv34 mm[Hg][employer]ilberto [employer] Work Phone: [phone] 13:34-0400BP Ofvrixjv650 mm[Hg][employer] 32-939285-46318531-27-7570 13:34-0400BSA (Body Surface Area)2.35 m2 [employer] 01-547122-69739227-97-0432 13:34-4593Rouvrt654.34 NeilCoupFlipmichelle Branchly Work Phone: [phone] 13:34-0400Pulse (Heart Rate)100 /minEdilberto [employer] 18-882556-04962529-29-5396 13:34-6001Xpyyxv547.22 Lincoln Branchly 31-400594-52050526-01-2558 13:00-0400BMI (Body Mass Index)33.47 kg/m2 [employer] 50-274771-74088086-89-2874 13:00-0400Body .86 kgEricka [employer] Work Phone: [phone] 13:00-0400BP Ccytohrsw46 mm[Hg][employer]ilberto [employer] Work Phone: [phone] 13:00-0400BP Czyeccam252 mm[Hg][employer] Work Phone: [phone] 13:BSA (Body Surface Area)2.34 m2 [employer]ilberto [employer] Work Phone: [phone] 13:00-6093Pjyepc551.34 Lisandra Branchly Work Phone: [phone] 13:000400Pulse (Heart Rate)100 /minjaja.tvgavi [employer] Work Phone: [phone] 13:009312Dazupb200.86 Lincoln Branchly Work Phone: [phone] 12:BMI (Body Mass Index)34.31 kg/m2 [employer]ilberto [employer] Work Phone: [phone] 12:290400Body .59 Gerardo [employer] Work Phone: [phone] 12:29-0400BP Efsfyummi86 mm[Hg][employer] Work Phone: [phone] 12:29-0400BP Exctyrih234 mm[Hg][employer]ilberto [employer] Work Phone: [phone] 12:29BSA (Body Surface Area)2.36 m2 [employer] Work Phone: [phone] 12:296012Vcmuye899.34 Lisandra Branchly Work Phone: [phone] 12:290400Pulse (Heart Rate)100 /minEdilberto [employer] 52-171835-88116177-50-2629 12:29-9095Yltxdn589.59 Lincoln Branchly 53-365076-78861796-67-7152 13:52-0400BMI (Body Mass Index)34.07 kg/m2 [employer]il[employer]to[employer]ev[employer] 42-710106-46895122-56-6718 13:52-0400Body gyrdil256.82 Gerardo [employer] 88-476245-40343218-02-5862 13:52-0400BP Vwryewlvx86 mm[Hg][employer] 07-459708-30776861-51-9405 13:52-0400BP Kvpvxeaf666 mm[Hg][employer] 43-904229-84244797-98-5604 13:52-0400BSA (Body Surface Area)2.36 m2 [employer]il[employer]toapp[employer]ev[employer] 84-396148-22756524-87-3475 13:52-4341Mlysco242.34 cmLeroy Branchly 61-140817-81212698-29-7389 13:52-0400Pulse (Heart Rate)100 /minEidlberto [employer] 77-643498-41960378-55-7128 13:52-3144Wppnpe175.82 Lincoln Branchly 11-856494-21973900-18-8136 14:53-0400BMI (Body Mass Index)34.31 kg/m2 Edil[employer]toappweevr 91-999640-51279344-03-3489 14:53-0400Body yzukhu573.59 Gerardo [employer] 00-008959-99111528-28-5152 14:53-0400BP Ehwhbvdpk62 mm[Hg][employer] 54-300273-22834439-26-5837 14:53-0400BP Yjllxujl628 mm[Hg]Edilberto [employer] 01-280111-53740545-43-8940 14:53-0BSA (Body Surface Area)2.36 m2 Edilberto [employer] Work Phone: [phone] 14:53-9298Urxeaz333.34 Lisandra [employer] 70-867141-31341622-94-5324 14:53-0400Pulse (Heart Rate)120 /minEdilberto [employer] 33-013466-85944625-01-0738 14:53-5042Lofrep051.59 Lincoln Branchly 68-082284-57211347-66-4661 13:24-0400BMI (Body Mass Index)34.38 kg/m2 [employer]il[employer]toapp[employer]ev[employer] 19-442208-22912133-56-3331 13:24-040Body lyupqo525.81 Gerardo Muniz [employer] 34-782854-68798108-42-8158 13:24-0400BP Yoygqinin02 mm[Hg]Edilberto [employer] 67-741021-07321187-90-4044 13:24-0400BP Bdbhdocl160 mm[Hg]Edilberto [employer] 79-181081-15547587-53-7349 13:240BSA (Body Surface Area)2.37 m2 Edil[employer]toapp[employer]ev[employer] 96-793331-55762026-64-8232 13:24-1849Sndehx790.34 Lisandra Branchly 77-115178-45381216-95-9211 13:24-0400Pulse (Heart Rate)108 /minjaja.tvgavi [employer] 00-640934-51603078-12-7653 13:24-3915Opyeyk289.81 Lincoln Branchly 97-457993-04617473-80-7941 11:47-0400BMI (Body Mass Index)34.38 kg/m2 [employer]ilberto [employer] Work Phone: [phone] 11:47-0400Body nycmdi777.81 kgEricka [employer] Work Phone: [phone] 11:47-0400BP Ldemjkeqp80 mm[Hg][employer]ilberto [employer] Work Phone: [phone] 11:47-0400BP Fvzrdnvg635 mm[Hg]Edilberto [employer] Work Phone: [phone] 11:47-0400BSA (Body Surface Area)2.37 m2 [employer] Work Phone: [phone] 11:47-0518Bmmvyt443.34 cmLeroy Branchly Work Phone: [phone] 11:47-0400Pulse (Heart Rate)116 /minEdilberto [employer] Work Phone: [phone] 11:47-1313Otzfej890.81 Lincoln Branchly Work Phone: [phone] 12:48-0400BMI (Body Mass Index)35.15 kg/m2 [employer] Work Phone: [phone] 12:48-0400Body xrkwru563.31 kgEricka [employer] Work Phone: [phone] 12:48-0400BP Whwczbjgz85 mm[Hg]Edilberto [employer] Work Phone: [phone] 12:48-0400BP Zxiwmixk442 mm[Hg][employer] Work Phone: [phone] 12:48-0400BSA (Body Surface Area)2.39 m2 [employer] Work Phone: [phone] 12:48-9796Sumqki211.34 Lisandra [employer] Work Phone: [phone] 12:48-0400Pulse (Heart Rate)76 /minEdilberto [employer] Work Phone: [phone] 12:48-5072Hawhmk015.31 kgEdilberto Branchly Work Phone: [phone] 15:06-0500Pulse Biususoh10 %Edilberto Branchly Work Phone: [phone] 15:06-7013XgA2% (BldA) [Mass fraction]97 % Ericka [employer] Work Phone: [phone] 14:14-0500BMI (Body Mass Index)36.26 kg/m2 [employer]il[employer]to [employer] Work Phone: [phone] 14:14-0500Body Dtlloxtibpt39.1 [degF][employer]ilberto [employer] Work Phone: [phone] 14:14-0500Body gfbryy084.94 kgEricka Muniz [employer] Work Phone: [phone] 14:14-0500BP Xhpltxawu90 mm[Hg]Edilberto [employer] Work Phone: [phone] 14:14-0500BP Wmxivvpr989 mm[Hg]Edilberto [employer] Work Phone: [phone] 14:14-0500BSA (Body Surface Area)2.43 m2 Edilberto [employer] Work Phone: [phone] 14:14-1640Gubqgf394.34 Lisandra Branchly Work Phone: [phone] 14:14-0500Pulse (Heart Rate)112 /minEdilberto [employer] Work Phone: [phone] 14:14-0500Respiratory Rate20 /minEdilberto [employer] Work Phone: [phone] 14:14-4796Hvxxhr917.94 Lincoln Branchly 85-179958-83338363-14-0172 13:36-0500BMI (Body Mass Index)36.26 kg/m2 [employer]ilberto [employer] Work Phone: [phone] 13:36-0500Body xpeklz055.94 kgEricka Muniz [employer] 21-739587-48343664-99-1385 13:36-0500BP Ryirwyljv87 mm[Hg]Edilberto [employer] 91-120447-61611084-48-0193 13:36-0500BP Jjyqvgio884 mm[Hg]Edilberto [employer] 25-816756-91871008-93-6118 13:36-0500BSA (Body Surface Area)2.43 m2 [employer]ilberto [employer] Work Phone: [phone] 13:36-4098Crmjrw417.34 cmLeroy Branchly 00-526935-53967855-75-5914 13:36-0500Pulse (Heart Rate)76 /minEdilberto [employer] 18-456824-80771397-14-0869 13:36-3040Qslcim901.94 Lincoln Branchly 57-520970-62796973-59-2893 13:00-0500BMI (Body Mass Index)36.4 kg/m2 [employer]il[employer] 27-998818-29106197-32-5758 13:00-0500Body Yykpiwslxbj38.6 [degF][employer]ilberto [employer] 67-846622-35898392-38-8187 13:00-0500Body cjhgez279.39 kgEricka [employer] Work Phone: [phone] 13:00-0500BP Afiykiszb54 mm[Hg]Edilberto [employer] Work Phone: [phone] 13:00-0500BP Veixmcmm362 mm[Hg]Edilberto [employer] Work Phone: [phone] 13:00-0500BSA (Body Surface Area)2.44 m2 Edilberto [employer] Work Phone: [phone] 13:00-2239Fjtjaz858.34 Lisandra Branchly Work Phone: [phone] 13:00-0500Pulse (Heart Rate)120 /minEdilberto [employer] Work Phone: [phone] 13:00-3242Zucscf605.39 kgEdilberto Branchly Work Phone: [phone] 13:38-0500BMI (Body Mass Index)35.98 kg/m2 Edilberto [employer] Work Phone: [phone] 13:38-0500Body Zwflsiuktoh51.8 [degF][employer]ilberto [employer] Work Phone: [phone] 13:38-0500Body uepsxx064.03 kgEricka Muniz [employer] 82-033575-24040516-35-0589 13:38-0500BP Hhlxnasza47 mm[Hg]Edilberto [employer] 24-365989-46112123-57-9307 13:38-0500BP Fdjeqyll482 mm[Hg]Edilbertoappweevr 01-357137-99779867-30-1535 13:38-0500BSA (Body Surface Area)2.42 m2 Edilbertoappweevr 38-362930-77427889-95-7038 13:38-3956Htndpu472.34 NeilAliopartis 11-24-2015 13:380505Pulse (Heart Rate)84 /minEdilberto RouterShareRogerallyveyaw [employer] 11-24-2015 13:380293Zegrlq233.03 kgEdilberto Branchly Encounters Encounter DateEncounter TypeCare ProviderFacilityStart: 04-08-2025 End: 04-90-4251Muvbnf outpatient new 45 minutesKimmie Yarbrough MD Work Phone: [facility] EndocrinologyComment on above: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); Low libido; Encounter for dietary consultation; Class 1 obesity due to excess calories without serious comorbidity with body mass index (BMI) of 34.0 to 34.9 in adultStart: 04-08-2025 End: 87-38-1466Kzswwubebeto Yarbrough MD Work Phone: [facility] EndocrinologyStart: 04-08-2025 End: 51-82-3742Xxaildbebeto Yarbrough MD Work Phone: [facility] EndocrinologyStart: 04-08-2025 End: 21-40-3044tfyqebwwclIRLNP F SABBAGHNot AvailableStart: 69-31-0941Pjfgvf outpatient visit 25 minutesWemadan Magana Other bvma OfficeStart: 49-42-1496Ipaxk S Schworm Other [facility] OfficeStart: 00-35-5199Mopkaz outpatient visit 25 minutesEricka Muniz Other bvma OfficeStart: 58-75-2520Eiml R Fox Other [facility] OfficeStart: 12-20-2024 End: 92-57-6687hxcpsdzlaqJyracig Ryan Denike DOFacility:[facility] Start: 08-14-2024 End: 95-49-5313apgxmjqlpnYuqd R Fox MD Work Phone: [facility] Work Phone: Start: 08-14-2024 End: 83-92-6308Odjgfci encounter procedureEricka Muniz MD Work Phone: [facility] Work Phone: Start: 71-64-5526Iwv-patient / Non-visitEricka Muniz MD Work Phone: [facility]Former[facility] Work Phone: Start: 07-19-2024 End: 15-45-7925Fivpopj encounter procedureEricka Muniz MD Work Phone: [facility] Work Phone: Start: 07-19-2024 End: 64-21-2701yjnhpkrkquKyvw R Fox MD Work Phone: [facility] Work Phone: Start: 06-21-2024 End: 55-86-5433grsbcebwyrZmnrs Beth [facility]ap[facility] BELT BACK OPERATOR-CNPFacility:[facility] SystemyStart: 06-12-2024 End: 47-52-5384hqonakvlnnPemly Beth Eziooegigipenn highlands healthcare BELT BACK OPERATOR-CNPFacility:[facility] SystemyStart: 58-33-4952Hwhffh outpatient visit 25 minutesWemadan Magana Other [facility] OfficeStart: 96-33-8168Sxgx R Fox Other [facility] OfficeStart: 52-32-1827Xwrmpg outpatient visit 25 minutesEricka Muniz Other bv[facility] OfficeStart: 01-11-2024 End: 49-34-7861bsxvjjmzjzVugdg Beth Kloepfer BELT BACK OPERATOR-CNPFacility:[facility]Healthtart: 12-14-2023 End: 38-00-2024Peehxeprr department patient visitRADHA Upton Work Phone: [facility] Work Phone: Start: 12-03-2023 End: 78-42-3374Giwaftmbl department patient visitAPRDouglas Upton Work Phone: [facility] Work Phone: Start: 11-14-2023 End: 38-70-9968Rskxfn outpatient visit 25 minutesEricka Muniz Other bvma OfficeStart: 40-80-3248Jctp Pablo Muniz Other bvma OfficeStart: 29-80-3285Uywm examination performed Ericka [employer] Start: 53-68-8797Rhdfcaexs encounterPaarelis Jose Gelaciomary DO Work Phone: [facility]NT SANDUSKYStart: 06-16-2023 End: 03-65-0162Qca-admission assessmentPETER D [facility] Start: 60-49-3442Ktvjwx outpatient visit 15 minutesEricka Muniz Other bvma OfficeStart: 89-33-1007CgekmEdilberto Zamora Other bvma OfficeStart: 64-41-1540Cbfu examination performed Ericka [employer] Start: 05-34-0667Dkbjcp outpatient visit 25 minutes Edilberto Zamora Other bvma OfficeStart: 84-11-2028uqdjabxruqXFQIZ D HIGHLANDERFacility:K7Wqcjx: 07-28-2022 End: 54-77-3973cmorerxudpHXAWQ D HIGHLANDERFacility:W7Abeaz: 98-13-0870AgzDhduf L Schroeder Other bvma OfficeStart: 57-13-4573SjcumEdilberto Zamora Other bvKATHLEEN OfficeStart: 18-83-8389Fctkxp ServicesEricka Muniz Other bvma OfficeStart: 42-19-5635Rxxp examination performed Edilberto Schaefferconey island hospitalyaw [facility] Start: 07-27-2022 End: 40-61-7278Rkpggd outpatient visit 25 minutesLergavi Lawrence Zamora Other bvma OfficeStart: 06-23-2022 End: 13-13-5333oouixmbuycVKSOU D BURNETT MEDICAL CENTERFacility:Z2Ajnev: 05-27-2022 End: 38-30-7211tcnrkfvjllOJK [facility] Work Phone: Start: 05-27-2022 End: 69-32-9276Kerjifvoyu [facility] [place]Start: 05-26-2022 End: 52-59-7192vydpaqieniZIX [facility] Work Phone: Start: 05-26-2022 End: 26-81-8717Mzvrwsd encounter procedureCommunity [facility]-CT Strub RdStart: 99-68-6718Ancfqfjhjv [facility]- Wound Care [place]Start: 04-22-2022 End: 72-52-6118ewfljdssdtBAG [facility] Work Phone: Start: 04-22-2022 End: 61-95-3198Ejrzplt encounter procedureCommunity [facility] CampusStart: 04-21-2022 End: 01-12-8600oqhdxzwuixXAL [facility] Work Phone: Start: 04-21-2022 End: 70-23-5443Rwuttex encounter procedureCommunity Memorial Hospital [facility]tr-MRI Main CampusStart: 31-03-1894Njlhdmsljy [facility]- Wound Care [place]Start: 04-01-2022 End: 85-80-2351Peuxpetnx department patient visitCommunity Memorial Hospital Ctr- Emergency RoomStart: 10-50-1459Pwppdw outpatient new 20 minutesJeremy P Dyana Other BVKATHLEEN OfficeStart: 91-08-9417Nwntsr outpatient visit 15 minutesJeremy P Dyana Other BVKATHLEEN OfficeStart: 42-63-5922Lqnrpz outpatient visit 15 minutesJeremy P Dyana Other BVKATHLEEN OfficeStart: 97-24-4675Ahdgfm outpatient visit 15 minutesJeremy P Dyana Other BVKATHLEEN OfficeStart: 83-87-9859PbmNazj R Muniz Other BVKATHLEEN OfficeStart: 19-74-3418Jhdq R Muniz Other BVKATHLEEN OfficeStart: 67-67-0429Ebyhkx outpatient visit 15 minutesMark R Muniz Other [facility] OfficeStart: 57-04-8972CriQkeuc L Schroeder Other [facility] OfficeStart: 78-09-3769GgoemEdilberto Zamora Other [facility] OfficeStart: 35-40-1444Ahzgou outpatient visit 15 minutesJeremy P Dyana Other [facility] OfficeStart: 53-00-4471Lseu examination performed [facility]berto [facility]oraBar[facility] Start: 12-10-8283Dxvywv outpatient visit 25 minutes Edilberto Zamora Other BVKATHLEEN OfficeStart: 85-59-0090Rbvpbe outpatient visit 25 minutesJeremy P Dyana Other [facility] OfficeStart: 77-62-5006Goagkn outpatient new 45 minutesJeremy P Dyana Other [facility] OfficeStart: 97-00-3293Ojimbv ServicesJeremy P Dyana Other [facility] OfficeStart: 44-46-4552Comdnj outpatient visit 25 minutesMark R Muniz Other [facility] OfficeStart: 45-87-3473Zpje examination performed Edilberto ZamoraNewfieldOM Latam [facility] Start: 14-00-0096Grxytx outpatient visit 25 minutes Edilbertogavi Zamora Other BVKATHLEEN OfficeStart: 92-06-5854JjqKpxgl L Schroeder Other [facility] OfficeStart: 02-08-2022Medicare LabGuccioy Melinda Zamora Other [phone]-WpiGules: 66-64-0496Mifmy Melinda Zamora Other BVKATHLEEN OfficeStart: 09-09-2021Medicare LabGuccioy Melinda Zamora Other [phone]-QxqAvmqq: 48-27-7639Ibnjk Melinda Zamora Other [phone]-YmnCcbdo: 63-65-4242This examination performed Edilberto ZamoraFrevvo [facility] Start: 17-56-4501Omzast outpatient visit 25 minutes Edilbertogavi Zamora Other [facility] OfficeStart: 72-90-4484FedCege Pablo Muniz Other [facility] OfficeStart: 01-75-1621Yxtx Pablo Muniz Other [facility] OfficeStart: 38-88-7221Jxkcty outpatient visit 25 minutesEricka Shah Muniz Other [facility] OfficeStart: 91-98-4329Xnkyousyg for general adult medical examination without abnormal findingsCumberland Foreside HangoNewfieldOM Latam [facility] Start: 13-41-8236Xvhj exam performedEdilberto Fraziernchard Hellotravel [facility] Start: 49-50-0249Psusaj outpatient visit 25 minutes Edilbertogavi Zamora Other [facility] OfficeStart: 03-02-2021Medicare LabEdilberto Jaraeder Other [phone]-ZouDjhpi: 24-16-6853Mpsejbriana Zamora Other [phone]-FdrKybyx: 58-95-9332Jqzbvb outpatient visit 15 minutesMark Pablo Muniz Other [facility] OfficeStart: 75-91-5841Wcluwc outpatient visit 15 minutesMark Pablo Muniz Other [facility] OfficeStart: 84-17-7321Fsylti outpatient visit 15 minutesMark Pablo Muniz Other [facility] OfficeStart: 09-29-2020Medicare LabGuccigavi Melinda Zamora Other [phone]-ScqBznse: 72-52-5327Fumzi Melinda Zamora Other [phone]-LdsSijsd: 94-48-5673Blyt exam performedFlagstaff Medical Centergavi ZamoraD[facility] [place] [facility] Start: 86-01-3421Drfhxr outpatient visit 25 minutes Edilberto Zamora Other [facility] OfficeStart: 03-25-2020 End: 55-00-2457Vumwldb [facility] Start: 03-25-2020 End: 30-63-2184Iffyxohcvb hospital visit by [facility] MRIComment on above:Right knee pain, unspecified chronicityStart: 85-39-7949Zgusyv outpatient visit 15 minutesEricka Muniz Other [facility] OfficeStart: 02-12-2020 End: 32-37-3764Kqmjaqc encounter procedureMARK Pablo [facility]: [facility] End: 88-02-0218Yttmmaevbq hospital visit by [facility] MRIComment on above:Acute pain of right shoulderStart: 11-66-5243Ffbkzr outpatient visit 15 minutesEricka Muniz Other [facility] OfficeStart: 12-28-2019 End: 14-22-2890Ztxfdnzlbr hospital visit by Cathy Escalona Work Phone: [phone] ORComment on above: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, initial encounter (Primary Dx)Start: 64-87-9530Loxmfs outpatient visit 25 minutesEdilberto Zamora Other [facility] OfficeStart: 12-26-2019 End: 07-93-6474Kgxkhoa encounter [facility]SWilson [facility] Start: 12-26-2019 End: 44-90-1102Nqwbstttea hospital [facility] by physicianM[facility] Lab Drawing RoomMTHZ LaboratoryComment on above:ArrivedStart: 12-24-2019 End: 93-72-8757Qrngpmi encounter procedureSWilson Memorial Hospital Start: 12-24-2019 End: 73-03-3224Frbebddwkl hospital [facility] physicianM[facility] Covid19 Pat Screening ScheduleMTHZ EKGStart: 66-25-7626JhwUsgkz L Schroeder Other [facility] OfficeStart: 96-28-7646Hobix L Schroeder Other [facility] OfficeStart: 01-49-4522Ytzahp outpatient visit 15 minutesMark Mondeca Other [facility] OfficeStart: 53-84-3400Qanrje outpatient visit 25 minutesMark R Hango Other [facility] OfficeStart: 58-95-4230CypEuly R Hango Other [facility] OfficeStart: 83-61-3559Nqxz R Hango Other [facility] OfficeStart: 16-85-1544Kxdv exam performedLerappweevr Start: 05-55-7926Djlaji outpatient visit 25 minutes Edilberto Zamora Other [facility] OfficeStart: 86-70-7258WlaSomii L Schroeder Other [facility] OfficeStart: 96-56-5375DfmxnEdilberto Zamora Other [facility] OfficeStart: 28-60-2576Nhmxylmrf for general adult medical examination without abnormal findingsFlagstaff Medical Centerappweevr Start: 17-70-2721Hocdfvl general medical examination at a health care facilityC[facility] [employer] Start: 53-25-9418Qszfhshp preventive med est patient 40-64yrsMark R Muniz Other bvma OfficeStart: 96-90-6630CmfTejv R Muniz Other BVVI OfficeStart: 56-15-6519Durd R Muniz Other bvma OfficeStart: 17-06-6060Fzvb exam performedLergavi [place] [employer] Start: 63-45-6737Udzywi outpatient visit 25 minutes Edilberto Melinda JaraZamora Other bvma OfficeStart: 43-70-0490Deqmvu-up visitBelchertown State [facility] Start: 56-45-6501Ndnztc outpatient visit 5 minutesBelchertown State [facility] For [facility]edMod[facility] Start: 02-46-9282Vqkiuqabzbryh follow-up visitEdilberto [place] [employer] Start: 00-71-1625GstuplirqSzvqg Trudy Other bvma OfficeStart: 49-42-6170Gjvvk Trudy Other BVYL OfficeStart: 08-78-0754WggGcldm L Schroeder Other [facility] OfficeStart: 25-08-3768KptypEdilberto Zamora Other [facility] OfficeStart: 26-11-6688WhdhxhmqyDfovv Trudy Other [facility] OfficeStart: 47-62-3354Xfwsc Trudy Other [facility] OfficeStart: 13-04-5746Iizmyf outpatient new 20 minutesChase Trudy Other [facility] OfficeStart: 40-96-3877Hsssvsaal for general adult medical examination without abnormal findingsFlagstaff Medical Centerappweevr Start: 56-65-5677Zbgykul general medical examination at a health care facilityMark FlavioFrev[employer] Inc Start: 40-03-3912Tnmjkp outpatient visit 15 minutesEricka Muniz Other bvma OfficeStart: 43-94-1103Eydjpr ServicesNatty Paniagua Other [facility] OfficeStart: 03-85-9094Ohimtxel naomi Jungam Other [facility] OfficeStart: 76-76-8130Agow exam performedLergavi [place] [employer] Start: 36-61-7999Xfdcvq outpatient visit 25 minutes Edilberto Zamora Other [facility] OfficeStart: 24-01-0566RwrBzhup L Schroeder Other [facility] OfficeStart: 85-76-2677Zxcyl L Schroeder Other bvma OfficeStart: 43-75-8270Htbptfu encounter procedureMAUDAY Ledezma [facility] PhysiciansStart: 10-12-2018 ProcedureDarigoberto Morris Other op BVHStart: 88-75-4105Xlepb J Meier Other op BVHStart: 28-30-6260Pmdi exam performedEdilberto Zamora Other bvma OfficeStart: 52-74-2940Ehhabq outpatient visit 25 minutesEdilberto Zamora Other [employer] Start: 46-38-9373Zshkat ServicesEdilberto Zamora Other bvma OfficeStart: 56-26-1269HaudeEdilberto Zamora Other bvma OfficeStart: 19-97-9997Zboyztlpq for general adult medical examination without abnormal findingsGuccigavi [place] [employer] Start: 49-85-5804Eutwdnq general medical examination at a health care facilityLeroy SeraFrevvo Inc Start: 71-83-0485Anamsp outpatient visit 25 minutesMark R Muniz Other [facility] OfficeStart: 68-66-6102AhrSnoq R Muniz Other [facility] OfficeStart: 05-99-4777Zedi R Muniz Other [facility] OfficeStart: 48-38-8717Pznfdo ServicesLergavi Zamora Other [facility] OfficeStart: 88-53-8880Mteum Melinda Zamora Other [facility] OfficeStart: 19-96-1134HyfmmctzjYiruifq Gigi Josederrickjorge Other op BVHStart: 84-56-1355Wwajiik Gigi Joseschjorge Other op BVHStart: 84-77-0351Jyce exam performedLergavi Zamora Other [facility] OfficeStart: 22-03-5205Mllmhi outpatient visit 25 minutesLeroy Melinda Zamora Other [employer] Start: 23-88-4471NnqOzgnp Melinda Zamora Other [facility] OfficeStart: 03-40-0981Qtgxm L Schroeder Other [facility] OfficeStart: 55-20-3584Hpti-Kal Muniz Other [facility] OfficeStart: 04-20-2018 End: 15-28-9353Olco R Muniz Other [facility] OfficeStart: 46-90-8165Eivnpp ServicesPetecarmina Paniagua Other [facility] OfficeStart: 97-17-2434Ldpm exam performedLergavi Zamora Other [facility] OfficeStart: 22-66-3776Oynkci outpatient visit 25 minutesLergavi Zamora Other [employer] Start: 33-77-9810HqtYhyas L Zamora Other [facility] OfficeStart: 00-68-5859Yahkp L Zamora Other [facility] OfficeStart: 81-56-0614Hiupfr outpatient visit 25 minutesMark R Muniz Other [facility] OfficeStart: 39-75-6223QjdSrcb R Muniz Other [facility] OfficeStart: 10-60-5837Duhj R Muniz Other [facility] OfficeStart: 60-45-4857Pqbhxn ServicesMark R Muniz Other [facility] OfficeStart: 78-12-9901Qxhh R Muniz Other [facility] OfficeStart: 18-68-1042Bbpu exam performedLeroy L Zamora Other [facility] OfficeStart: 19-19-0882Smyzaj outpatient visit 25 minutesLeroy L Zamora Other [facility] [employer] Start: 66-58-4877Ijossw ServicesMark R Muniz Other [facility] OfficeStart: 90-48-4432Lsfd R Muniz Other [facility] OfficeStart: 48-18-4705LopTcpzb L Zamora Other [facility] OfficeStart: 45-58-9073Efkbw L Zamora Other [facility] OfficeStart: 48-44-5859Jvtpoh ServicesLeroy L Zamora Other [facility] OfficeStart: 16-87-3246Efuqi L Zamora Other [facility] OfficeStart: 80-46-1855Zqduqi outpatient visit 25 minutesMark R Muniz Other [facility] OfficeStart: 54-06-7539YwfZtgz R Muniz Other [facility] OfficeStart: 55-09-6139Tdgp R Muniz Other [facility] OfficeStart: 17-53-2965Zgpuqp ServicesNatty Paniagua Other [facility] OfficeStart: 30-67-3744Ppsxwmfz z Graham Other [facility] OfficeStart: 28-95-8638Mziz exam performedEdilberto ZamoraPhonezoo Communications Start: 83-53-5937Beslgy outpatient visit 25 minutes Edilbertogavi Zamora Other [facility] OfficeStart: 21-36-6927VuxSpvlz L Schroeder Other [facility] OfficeStart: 17-16-7490Nigqr L Schroeder Other [facility] OfficeStart: 07-53-6895Mgkyhu outpatient visit 15 minutesMark Pablo Muniz Other [facility] OfficeStart: 91-45-4809Xkyv exam performedLergavi Zamora Other [facility] OfficeStart: 16-80-6461Girrfb outpatient visit 25 minutesLergavi Zamora Other [employer] Start: 55-53-9717GpvYhemy L Schroeder Other [facility] OfficeStart: 24-99-9744Azhcc L Schroeder Other [facility] OfficeStart: 97-90-3850Jrjkwu outpatient visit 25 minutesEricka R Muniz Other [facility] OfficeStart: 02-17-2017 End: 51-64-5267Dbhiu SrvcMark R Muniz Other [facility] OfficeStart: 02-17-2017 End: 36-51-2378Wufz R Muniz Other [facility] OfficeStart: 66-19-0758Fjppus outpatient visit 25 minutesMark R Muniz Other [facility] OfficeStart: 65-45-0629Qypk exam performedLergavi L Zamora Other [facility] OfficeStart: 74-92-4106Yohiwu outpatient visit 25 minutesLeroy L Zamora Other [employer] Start: 92-02-3866AbfBhyhj L Zamora Other [facility] OfficeStart: 73-60-2883Cblaj L Zamora Other [facility] OfficeStart: 09-44-9256Jhtqkj outpatient visit 25 minutesMark R Muniz Other [facility] OfficeStart: 50-37-1549VdhZhbf R Muniz Other [facility] OfficeStart: 50-84-2456Kifc R Hango Other [facility] OfficeStart: 67-00-5608Lknir vcDarigoberto Morris Other [facility] OfficeStart: 34-91-5805Atpmb J Meier Other [facility] OfficeStart: 79-62-0956Lglk exam performedLeroy L Zamora Other [facility] OfficeStart: 72-73-0707Neuqso outpatient visit 25 minutesLeroy L Zamora Other [employer] Start: 77-38-6476WvxWiriq L Zamora Other [facility] OfficeStart: 98-84-1919Eaguj L Zamora Other [facility] OfficeStart: 60-87-4854Qqwuor outpatient visit 25 minutesMark R Muniz Other [facility] OfficeStart: 74-88-1099Uwxr exam performedLeroy L Zamora Other [facility] OfficeStart: 11-37-4519Orqblz outpatient visit 25 minutesLeroy L Zamora Other [employer] Start: 43-25-5611JkmBpbbf L Zamora Other [facility] OfficeStart: 33-57-5735Qkcyq L Zamora Other [facility] OfficeStart: 09-04-6131Ncjdhp outpatient visit 15 minutesMark R Muniz Other [facility] OfficeStart: 71-90-2931Xbmdja outpatient visit 15 minutesMark R Muniz Other [facility] OfficeStart: 58-43-9889Gwhqph outpatient visit 15 minutesMark R Muniz Other [facility] OfficeStart: 84-64-2465Zvwucd outpatient visit 15 minutesLergavi L Zamora Other [facility] OfficeStart: 20-28-6361MamEvvrh L Zamora Other [facility] OfficeStart: 31-49-9010Wkxsf L Zamora Other [facility] OfficeStart: 92-77-4246Mahmxp outpatient visit 25 minutesMark R Muniz Other [facility] OfficeStart: 71-53-5116HpySwals L Zamora Other [facility] OfficeStart: 09-13-2195Rfdlu L Zamora Other [facility] OfficeStart: 34-43-1158Zlom exam performedLergavi L Zamora Other [facility] OfficeStart: 44-79-7031Tfbejr outpatient visit 25 minutesLergavi L Zamora Other [employer] Start: 08-96-1818MhcIvorh L Zamora Other [facility] OfficeStart: 77-07-3955Dklcz L Zamora Other [facility] OfficeStart: 81-61-5708Qdsltw outpatient visit 15 minutesMark R Muniz Other [facility] OfficeStart: 16-63-2015Ujdl exam performedLergavi ZamoraPhonezoo Communications Start: 92-09-3938Dvyckk consultation new/estab patient 80 minLeroy L Zamora Other [facility] OfficeStart: 72-63-2532Jdokke ServicesMark R Muniz Other [facility] OfficeStart: 54-40-8091Kuzq R Muniz Other [facility] OfficeStart: 62-29-0164Gcfrhb outpatient visit 25 minutesMark R Muniz Other [facility] OfficeStart: 41-47-2135XjxmnfxvaCrei D Watson Other op BVHStart: 75-75-5019Szvu D Watson Other OP BVHStart: 96-87-7770Fvpszp consultation new/estab patient 60 minJesus Del Cid Other [facility] OfficeStart: 21-83-3550Ljqswm ServicesMark R Muniz Other [facility] OfficeStart: 41-18-2002Xssh R Muniz Other [facility] OfficeStart: 08-41-5853Mpmot SrvcMark R Muniz Other [facility] OfficeStart: 40-78-3382Nvsm R Muniz Other [facility] OfficeStart: 74-27-7934FaxWcqs R Muniz Other [facility] OfficeStart: 08-05-2015 End: 25-46-8399Emhn R Muniz Other [facility] OfficeStart: 08-05-2015 End: 59-26-7745Mkxso SrvcMark R Muniz Other [facility] OfficeStart: 19-84-6913Uyeeyr outpatient visit 15 minutesLindsay Kimball Other [facility] OfficeStart: 05-97-4508Iimten outpatient new 45 minutesMark R Muniz Other [facility] Office Procedures DateProcedureProcedure DetailPerforming ClinicianStart: 47-68-7485Yhntpmrfdevlw metabolic panelMark FoxStart: 89-05-0856Fwjhcrmeod A1c measurementMark FoxStart: 10-70-4978Sdfwh panelMark FoxStart: 18-35-7733Oeduf SchwormStart: 07-19-2024 Plain chest X-rayEricka Muniz MD Work Phone: Start: 66-68-8267Zvykdictemfqw metabolic panelMark Muniz Start: 31-47-0172Zhbgahrgpc A1c measurementMark FoxStart: 82-43-2037Egzjq panel Ericka FoxStart: 56-44-5298Ojcktgd stimulating hormone measurementMark FoxStart: 43-50-4367Qatawkn B12 measurementWendi SchwormStart: 42-95-0594Wphbefjo foot examinationMark FoxStart: 38-06-2977Slnlpzcqxm A1c measurementMark FoxStart: 12-49-7380Dbkb recent diastolic blood pressure 80-89 mm hgWendi SchwormStart: 66-67-0404Hypv recent systolic blood pres>/equal 140 mm hgWendi SchwormStart: 52-63-6348Bxwe recent systolic blood pressure <130 mm hgWendi SchwormStart: 59-63-8701Lvwy FoxStart: 68-00-7423Tpvccnmjbfgvv metabolic panelMark FoxStart: 35-88-9928Dbazjyqdwsx mean corpuscular volume determinationMark FoxStart: 69-55-3136Yivcd panelMark FoxStart: 23-15-1516Kigj FoxStart: 07-28-2023 Comprehensive metabolic panelWendi SchwormStart: 66-68-3102Vkcdbuznch A1c measurementWendi SchwormStart: 08-41-1925Evbor panelWendi SchwormStart: 67-87-8555Uynxx SchwormStart: 01-25-2023 End: 04-48-7185Grldmjzmwfzsw metabolic panelMark FoxStart: 01-64-3876Kepmlbjd foot examinationMark FoxStart: 54-00-2662Gyihoioaejl mean corpuscular volume determinationMark FoxStart: 09-40-5853Cctv recent diastolic blood pressure < 80 mm hgMark FoxStart: 03-51-5300Bwpw recent systolic blood pressure <130 mm hgMark FoxStart: 01-25-2023 End: 08-05-8062Xlbd FoxStart: 96-51-7385Cszfkwagyb A1c measurementMark FoxStart: 41-44-5729Zddon panelMark FoxStart: 17-97-3361Cho UA (for Ketones)Edilberto ZamoraStart: 84-23-8220Cuyoc inorganic phosphate measurementLer Zamora Start: 21-37-7856Bplq FoxStart: 16-87-1407Nanbbwcg foot examinationLerCaro CenterStart: 32-63-8549Bqfncc cur meds by liv Reveles Bee[place] BluffStart: 77-49-9382Pjyvkyfvhryzu of current medicationsMark FoxStart: 07-21-2022 Comprehensive metabolic panelLerCaro CenterStart: 75-76-7429Rthhxiuufu A1c measurementLerCaro CenterStart: 71-87-4703TRXQSSNJETBD/Urine Creat RatioLerCaro CenterStart: 94-96-2566Iijboiftpwc hormone measurementLerCaro CenterStart: 11-05-1024Cibucpw D, 25-hydroxy measurementLerCaro CenterStart: 78-70-5175Vubx FoxStart: 83-17-4585Rbrdk panelLerCaro CenterStart: 23-30-9464IM of right foot Start: 27-77-7774B-ray of left ankleMark FoxStart: 24-24-4761YYQ of right foot with contrastStart: 79-30-1682WCI of right ankle with contrastStart: 04-05-2022 C-reactive protein measurementMark FoxStart: 90-36-2098Dbconxkw blood countMark FoxStart: 84-42-9203Uzrfngxpbtyau metabolic panelMark FoxStart: 04-05-2022 Erythrocyte sedimentation rate, non-automatedMark FoxStart: 72-64-3083OWT of lower extremityLerCaro CenterStart: 94-73-1084Ydpxb lactate measurementMark Muniz Start: 19-05-2790Kfwcke scan of lower limb veinsStart: 83-86-3035X-ray of right footStart: 41-58-7255Nfbmdb cur meds by liv Armstrong MarchandStart: 84-25-6971Scjoexdcgumrq of current medicationsMark FoxStart: 48-75-9620U-ray of left ankleJeremy SeptemberandStart: 56-42-4522Xdcubsyfbn radiologic examination Bo Gunn Other Start: 26-19-4326Vbaydh cur meds by liv Armstrong MarchandStart: 53-02-1787Xmqptahcacbta of current medicationsMark FoxStart: 31-58-8966Hiygemuwf of ankleMark FoxStart: 87-16-1255Knzdyaf boot, non- pneumatic, with or without joints, with or without interface material, prefabricated, hmv-wud-bxtfsQmlv FoxStart: 52-99-9120P-ray of left ankleJeremy SeptemberandStart: 09-03-7294N-ray of left footJeremy tart: 02-17-2022 End: 32-76-4754Vjlufhuvblvnr metabolic panelJeremy tart: 02-17-2022 Destruction of lesion of skinMark FoxStart: 59-03-6394Tuwhbd cur meds by liv Santiago FoxStart: 67-24-4910Ugflxebyzzebu of current medicationsMark FoxStart: 06-22-7877Tfmlswovop A1c measurementJecommunity hospital of the [facility] tart: 37-35-1944Zfbuj panel Franky SeptemberTri-State Memorial Hospitalrt: 45-95-3337TXHERHDKGAEN/Urine Creat RatioJeremy [facility] Start: 00-61-1601Xpzl FoxStart: 88-78-7040Vvfzxc cur meds by liv Muniz Start: 37-39-2209Lwhgukyyyyunj of current medicationsMark FoxStart: 01-18-2022 Diabetic foot examinationLer Marekgerman hospitalStart: 99-29-0606Fzg UA (for Ketones) Edilberto Jaragerman hospitalStart: 33-55-4817Ulrb FoxStart: 38-17-7545Niqdcn cur meds by liv Jaragerman hospitalStart: 06-60-9818Dwlnmwhlaqewv of current medicationsMark FoxStart: 50-23-4799Nvorlekui of callusMark FoxStart: 76-12-5629Yqsqzj cur meds by liv Armstrong [facility] Hospitaltart: 52-26-2328Mqywxvhorpoak of current medications Ericka FoxStart: 14-62-4302Vjprogdiogwli metabolic panelEdilberto JaraLovelace Medical Centerart: 81-75-7512Xfpiscjlcob mean corpuscular volume determinationLergavi Jaragerman hospitalStart: 87-49-8926Yxeww glutamyl transferase measurementLergavi Jaragerman hospitalStart: 18-23-6207Mlbrjcuabs A1c measurementLeroy [place] Bluffart: 01-01-2022 MICROALBUMIN/Urine Creat RatioLeroy [place] BluffStart: 35-87-1867Oaij FoxStart: 87-46-0031Rccxar cur meds by liv Armstrong SeptemberTri-State Memorial Hospitaltart: 10-20-2021 Documentation of current medicationsMark [place] FallsStart: 51-00-0836Ilkilbzvgoz of nail Ericka FoxStart: 52-59-9990Poutwuep of abscessMark FoxStart: 93-44-8996Lgrsbwjxm on skinMark FoxStart: 65-27-6736Ily-scan lxtr art/artl bpgs uni/lmtd studyJeremy tart: 17-40-8733Wld-invasive physiologic study extremity 3 levlsJeremy tart: 48-22-3381Sonywr cur meds by liv Armstrong SeptemberTri-State Memorial Hospitaltart: 93-36-4978Bsqsoqepgqxjp of current medicationsMark FoxStart: 32-94-2713Pjnqkvy ultrasonography of artery of lower limbJeremy tart: 44-21-0768Rlskw X- ray of toeJeremy SeptemberTri-State Memorial Hospitaltart: 68-14-4259Kizth microscopy, culture and sensitivitiesJeremy rt: 53-13-6294Zdhtwxhs foot examinationLeroy [place] Bluffart: 40-64-6351Kvxfup cur meds by liv Reveles [place]uffStart: 90-39-5953Vusvswqrxusco of current medicationsMark [place]Start: 67-69-4827UD-Dip Edilberto [place]Start: 81-72-5127Qwin FoxStart: 42-95-5106Heiqmoistfkhy metabolic panelLeroy [place]uffStart: 07-08-7706Hfqpaabdqel mean corpuscular volume determinationLeroy [place]uffStart: 90-59-1255Woaxkygoup A1c measurementLeroy [facility] Hospitalart: 28-95-0232Tjpql panelLeroy [facility] Hospitalart: 66-12-9475Casgt metabolic panel calcium totalMark FoxStart: 29-01-1162Xvmgx glutamyl transferase measurementLeroy [place]uffStart: 58-69-4794Werykgignj A1c measurementMark Muniz Start: 44-02-8986Atfdnoyiiaamu metabolic panelMark FoxStart: 06-24-2021 Erythrocyte mean corpuscular volume determinationMark FoxStart: 06-24-2021 Hemoglobin A1c measurementMark FoxStart: 20-30-9064Lkdji panelMark FoxStart: 10-66-3065Awo UA (for Ketones)Edilberto MarekederStart: 80-57-9429Ryih FoxStart: 86-38-6944Bauleecw foot examinationLeroy Marekgerman hospitalStart: 75-81-8921Qqxqaa cur meds by liv JaraederStart: 66-89-2546Xdvencashhchz of current medicationsMark FoxStart: 93-63-0670Gptsmywpwptal metabolic panelLergavi Zamora Start: 87-33-2502Uqigbangwgm mean corpuscular volume determinationLeroy MarekStart: 67-00-3262Ykqhohrqlh A1c measurementLeroy MarekbrianStart: 02-79-1066Ropqncjsucs hormone measurementLeroy Marekgerman hospitalStart: 00-89-5090Aptub inorganic phosphate measurementLeroy Marekgerman hospitalStart: 12-23-2020 End: 04-83-9486Wolgwrvhuhhda metabolic panelMark FoxStart: 08-51-9747Bcypkr cur meds by liv wellsCumberland Foreside FoxStart: 13-98-5447Pthqzlhtppuug of current medications Ericka FoxStart: 67-88-9449Zlfneciacsv mean corpuscular volume determinationMark FoxStart: 95-73-7755Jihaikybhm A1c measurementMark FoxStart: 52-55-5430Gukpl panelMark FoxStart: 62-37-0714GGDJTQEUTNFQ/Urine Creat RatioGuccigavi Zamora Start: 81-51-3326Bqwiyrkfss, automatedMark FoxStart: 42-12-2817Kixo FoxStart: 36-00-4840Fii UA (for Ketones)Edilberto MarekederStart: 69-55-2710Xrkm FoxStart: 67-37-4021Uzewipfd foot examinationLeroy MarekbrianStart: 62-81-4485Tig meds verified w/pt or reLeroy SchroederStart: 05-97-9727Jaoygfnplpnwn of current medicationsMark FoxStart: 25-54-3385Dkatuwoagdpjo metabolic panelLergavi Zaomra Start: 44-45-8412Jteohrjlkq A1c measurementMark FoxStart: 11-50-9312Qetqgjumpv glycosylated b3iYewnjgavi ZamoraStart: 20-47-6727Upn UA (for Ketones)Edilbertogavi ZamoraStart: 58-90-6981Mwen FoxStart: 49-51-4601Lvqjqphw foot examination Edilbertogavi ZamoraStart: 77-61-5523Zja meds verified w/pt or reLeroy Sera Start: 93-20-2677Kbrkjrfhxskry of current medicationsMark FoxStart: 03-28-2020 Glucose quantitative blood xcpt reagent stripLeroy MarekStart: 03-28-2020 Hemoglobin A1c measurementMark FoxStart: 63-73-5366Wedqakujtr glycosylated a1c Edilberto ZamoraStart: 76-27-8482Wodjnld function panelLergavi ZamoraStart: 06-81-6603Eykyani function panelEricka FoxStart: 42-82-4975Guj any jt lower extrem w/o contrast matrlLUIS JAKATHERINEGUIStart: 86-64-0433Xzo any jt lower extrem w/o contrast matrlKara J Melville Work Phone: start: 50-37-3222Dti meds verified w/pt or reMark Muniz Start: 93-15-9401Duypcqkhkqgla of current medicationsMark FoxStart: 02-12-2020 Mri any jt upper extremity w/o contrast matrlLUIS JAKATHERINEGUIStart: 01-37-7298Yue any jt upper extremity w/o contrast matrlKara J Melville Work Phone: start: 96-83-8123Vhy meds verified w/pt or reLeroy SeraStart: 50-08-4895Umdeuybvzvdyt of current medicationsMark FoxStart: 74-06-6360TULPUXU, WHOLE BLOODSteven C Escalona Work Phone: Start: 63-72-7688Wmwzy metabolic panel calcium total Edilberto ZamoraStart: 04-62-8713Dkb meds verified w/pt or reLeroy Sera Start: 45-72-3797Rcdftzcnowccv of current medicationsMark FoxStart: 12-27-2019 Hemoglobin A1c measurementMark FoxStart: 87-89-9724Dyobjjpozq glycosylated a1c Edilberto ZamoraStart: 82-65-0100Kexpq of urea nitrogen quantitativeLUIS CALVILLO Start: 24-72-6293Ehaki count hematocritLUIS JAUREGUIStart: 91-30-8044Arawnbdpyh bloodLUIS JAUREGUIStart: 40-36-4661Heqfwntpdxu panelLUIS JAUREGUIStart: 72-02-6312Qetfigc quantitative blood xcpt reagent stripLUIS JAKATHERINEGUIStart: 84-77-3707Ckfqu of urea nitrogen quantitativeSteven C Hope Work Phone: Start: 41-49-9935Uohsa count hematocritSteven C Hope Work Phone: Start: 69-04-1917Tdywlwjsdu bloodSteven C Hope Work Phone: Start: 23-58-3567Rpnmkagyecw panelSteven C Hope Work Phone: Start: 75-01-1791Idlbfjq quantitative blood xcpt reagent stripSteven C Hope Work Phone: Start: 40-43-9381Dlo routine ecg w/least 12 lds w/i&r TARIK JAUREGUIStart: 46-90-7596PRE REPORTLUIS JAUREGUIStart: 11-21-1066WCIXX-19 TARIK JAUREGUIStart: 86-47-6662Asn routine ecg w/least 12 lds w/i&rSteven C Hope Work Phone: Start: 50-25-6786SYZ REPORTHpf ScanningStart: 17-51-3024CTJAS-Luis E Calvillo Work Phone: Start: 03-22-6076Vdpdznbyjqmdp metabolic panelMark Muniz Start: 38-59-9214Rcdlwwqebh A1c measurementMark FoxStart: 46-12-1838Linmcqcnmb glycosylated x1hTvdj FoxStart: 06-67-4077Sblmr panelMark FoxStart: 11-27-2019 Lipid panelMark FoxStart: 87-91-1654GIZKZTGOIQKV/Urine Creat RatioMark FoxStart: 83-51-6712Sttd FoxStart: 91-69-4259Akx meds verified w/pt or reMark FoxStart: 78-63-1262Mexcoapadxeap of current medicationsMark FoxStart: 08-41-3600Eigkz metabolic panel calcium totalLergavi Jaragerman hospitalStart: 34-62-4746Sdzlmjif foot examinationLergavi ZamoraStart: 32-95-2878Bfu meds verified w/pt or reLeroy SeraStart: 33-52-0951Aqvkhszubtedo of current medicationsMark FoxStart: 32-45-3432Qijui of glutamyltrase gammaLergavi Jaragerman hospitalStart: 88-99-6181Duzhg metabolic panel calcium totalLergavi Jaragerman hospitalStart: 76-86-2438Uzcwo glutamyl transferase measurementMark FoxStart: 55-14-4734Hythurzuqe A1c measurementMark FoxStart: 94-21-2486Fjjvgnhkkv glycosylated s8mHxkds Schrogerman hospitalStart: 05-28-2019 Doc meds verified w/pt or reMark FoxStart: 69-10-3215Vwhmmsfgxvhqu of current medicationsMark FoxStart: 73-36-2181Mhsly of prostate specific antigen totalMark FoxStart: 52-57-5430Ogkgm count complete automatedMark FoxStart: 05-22-2019 Comprehensive metabolic panelMark FoxStart: 95-21-0331Cfgpxlndyij mean corpuscular volume determinationMark FoxStart: 11-95-4438Mnaqr panelMark Muniz Start: 81-77-7916Zdcor panelMark FoxStart: 74-24-7726Pxgtcdbl specific antigen measurementMark FoxStart: 10-57-9660Rwtlbwuopa, automatedMark FoxStart: 35-66-7052Tebih dip stick/tablet rgnt auto w/o microscopyMark FoxStart: 12-58-3477Nxixinpx foot examinationLergavi ZamoraStart: 18-90-6822Vel meds verified w/pt or reLeroy SeraStart: 77-98-0516Xythkekcaqgrs of current medicationsMark FoxStart: 61-02-5802Yzdhr of glutamyltrase gammaChase Trudy Start: 16-00-0546Xsvdtcqiploge metabolic panelChase TrudyStart: 04-13-2019 Gamma glutamyl transferase measurementMark FoxStart: 43-05-5373Ciefvxccgq A1c measurementMark FoxStart: 43-46-5121Jzoqdtmjwz glycosylated l4vEyrmb Trudy Start: 58-19-5698SZKEXUEVOJOG/Urine Creat RatioChase TrudyStart: 04-13-2019 Ericka MunizStart: 84-68-5370Wrjownxtkgfnv follow-up visitMark FoxStart: 03-29-2019 Doc meds verified w/pt or reChase Scarabrazo arrowhead campusughStart: 26-57-4704Whhdmjqsstlki of current medicationsMark FoxStart: 13-79-5507Xdk b9 lesion mrgn xcp sk tg t/a/l 2.1-3.0 cmCAllegheny General HospitalStart: 48-49-8586Lawxdbtd of lesion of skinMark Muniz Start: 46-23-1676Myjxu closure of wounds of extremitiesMark FoxStart: 03-29-2019 Repair intermediate s/a/t/e 2.6-7.5 cmCAllegheny General Hospitalart: 69-14-0415Ighfx of prostate specific antigen totalLergavi Jaragerman hospitalart: 17-62-4615Vhphc count complete automatedLer Marekgerman hospitalStart: 77-40-0932Rurgodzhdeeky metabolic panel Edilberto Jaragerman hospitalStart: 52-14-2032Yvayiznraje mean corpuscular volume determinationMark FoxStart: 04-64-7783Surnoserlj A1c measurementMark FoxStart: 81-48-2033Vcxyptpgyw glycosylated d6mDesev Marekgerman hospitalStart: 86-40-2005Yrykd panel Edilberto MarekLovelace Medical Centerart: 22-42-3349Ydehf panelMark FoxStart: 02-27-2019 MICROALBUMIN/Urine Creat RatioLer Marekgerman hospitalStart: 50-67-0672Enreanll specific antigen measurementMark FoxStart: 45-54-6707Gggy FoxStart: 22-68-3663Cox meds verified w/pt or reChase [facility] [place]note 2]Start: 48-31-6072Xyneyfmwtfboa of current medicationsMark FoxStart: 46-49-8278Mnpu Tag removal (SKNTG)Edilberto Zamora Start: 25-47-8670Mryi FoxStart: 35-76-4281Sii meds verified w/pt or reMark Muniz Start: 21-44-3356Tgzwadamfunch of current medicationsMark FoxStart: 01-02-2019 Medical nutrition re-assmt&ivntj indiv ea 15 mLeroy Marekgerman hospitalStart: 12-12-2018 Diabetic foot examinationLer MarekLovelace Medical Centerart: 81-34-5898Jbcpiqx measurement, quantitativeMark FoxStart: 78-00-5226Iyflfuq quantitative blood xcpt reagent stripLeroy Marekgerman hospitalStart: 87-53-6580Ijmdwoneae A1c measurementMark FoxStart: 53-71-8421Mblnwxynsn glycosylated o3zYmdgu Marekgerman hospitalStart: 75-30-2470Piyihvrl foot examinationLeroy Marekgerman hospitalStart: 58-09-1331Aly meds verified w/pt or re Edilberto Marekgerman hospitalStart: 64-86-1833Sevirzxhrycqm of current medicationsMark Muniz Start: 17-71-1710Aunojlm nutrition re-assmt&ivntj indiv ea 15 mMark FoxStart: 93-56-1849Fbcng count complete automatedLeroy Schrogerman hospitalStart: 09-17-2018 Erythrocyte mean corpuscular volume determinationMark FoxStart: 09-17-2018 Glucose measurement, quantitativeMark FoxStart: 55-68-9302Cryniwd quantitative blood xcpt reagent stripMark FoxStart: 39-87-7358Yfgrrafpdj A1c measurementMark FoxStart: 51-65-4051Izhyazutzv glycosylated n4vBknp FoxStart: 03-27-7441Qresqbs function panelMark FoxStart: 93-55-0942Jworlrq function panelMark FoxStart: 60-34-2278Npchfpw B12 and FolateLergavi Jaragerman hospitalStart: 38-54-6948Kryo FoxStart: 95-57-9369Wlmzp of prostate specific antigen totalLergavi Jaragerman hospitalStart: 06-18-1065Mkuspnxlxclvx metabolic panelLeroy Marekgerman hospitalStart: 09-01-2018 Hemoglobin A1c measurementMark FoxStart: 02-30-9851Ctdtcruqsv glycosylated a1c Edilberto Schrogerman hospitalStart: 70-06-5093Qmbpp panelLeroy SchroederStart: 14-94-6573Rhomy panelMark FoxStart: 95-03-0657FFXTYGQGWLBO/Urine Creat RatioLergavi Zamora Start: 92-24-6288Kpfsyrdh specific antigen measurementMark FoxStart: 09-01-2018 Ericka FoxStart: 45-96-0849Dtw meds verified w/pt or reLeroy Marekgerman hospitalStart: 15-45-9671Skesuzyrskflc of current medicationsMark FoxStart: 31-49-0134Cmaikqz nutrition re-assmt&ivntj indiv ea 15 mLeroy SeraStart: 89-72-4742Xodpzqih foot examinationLeroy Schrogerman hospitalStart: 66-68-3950Dop meds verified w/pt or re Edilberto SeraStart: 22-89-8618Mbomlfcqpltks of current medicationsMark Flavio Start: 58-78-0523Vvrtglr measurement, quantitativeMark FlavioStart: 06-19-2018 Glucose quantitative blood xcpt reagent stripGuccigavi ZamoraStart: 06-19-2018 Hemoglobin A1c measurementMark Start: 96-34-9050Hukznwhnih glycosylated a1c Edilberto SeraStart: 39-63-7115Ycgjidm nutrition re-assmt&ivntj indiv ea 15 m Ericka MunizStart: 49-38-3352Eftfgdvd foot examinationLergavi MarekbrianStart: 50-64-3639Qpjoiom measurement, quantitativeMark FlavioStart: 59-81-1830Dzgvxvu quantitative blood xcpt reagent stripChase Quickgladyslusi miguelStart: 59-24-1540Fpjemxljbw A1c measurementMark FlavioStart: 49-22-2182Ubouroqlky glycosylated c3dRodqv AbdelrahmandarleneStart: 08-18-3730MIFJRXWMAOJE/Urine Creat RatioChase YatesStart: 38-00-4580Djro FlavioStart: 79-03-1678Lvh meds verified w/pt or reLeroy Sera Start: 63-91-9901Ncbahuvbxpfwj of current medicationsMark FoxStart: 02-23-2018 Comprehensive metabolic panelLergavi ZamoraStart: 44-44-2675Datuknlytx A1c measurementMark FlavioStart: 59-78-2858Dkxzvsyscr glycosylated n4yUgpuoEdilberto Jaraeder Start: 44-39-7847Fozbd panelLergavi ZamoraStart: 64-36-6803Bjtec panelEricka Muniz Start: 83-08-0581HJEQYMPCRLZP/Urine Creat RatioEdilberto ZamoraStart: 02-23-2018 Ericka MunizStart: 90-65-6212Axeseag nutrition re-assmt&ivntj indiv ea 15 mChase TrudyStart: 28-58-7750Jscrucnc foot examinationLergavi ZamoraStart: 00-56-5866Ibz meds verified w/pt or reLeroy SeraStart: 12-13-2017 Documentation of current medicationsMark FoxStart: 54-87-9213Untmrmi function panelMark FoxStart: 62-77-2179Znhybyq function panelMark FoxStart: 12-09-2017 Diab manage trn per indivMark FoxStart: 73-28-0901Tgiirxot self-monitoring health educationMark FoxStart: 93-10-0930Nlckyxc measurement, quantitativeMark FoxStart: 24-76-1059Dsjfqlt quantitative blood xcpt reagent stripEdilberto Zamora Start: 11-98-0654Lkfqulnmxo A1c measurementMark FoxStart: 47-68-4393Czjihdsgdm glycosylated a8cAjxrcEdilberto Jaragerman hospitalStart: 25-33-5189Cbfj manage trn per indivEdilberto Jaragerman hospitalStart: 56-56-8230Wiqzuoji self-monitoring health educationCumberland Foreside Muniz Start: 77-08-3881Phinmzm Medications Verified MIPSLergavi Jaragerman hospitalStart: 35-33-9282Vudz FoxStart: 74-96-6552Aypmqzn aminotransferase measurementMark Muniz Start: 36-95-4510Thqjwxtxs aminotransferase measurementMark [place]Start: 08-25-2017 Basic metabolic panel calcium totalLergavi Jaragerman hospitalStart: 91-94-1564Asctitomvg A1c measurementMark [place]Start: 87-68-4615Mpssezusoc glycosylated b1pNrfwi Schrogerman hospitalStart: 58-38-2077Jlbdn panelLer Marekgerman hospitalStart: 61-59-1068Ozvbt panel Ericka FoxStart: 52-82-0577YKEIDOVREAKZ/Urine Creat RatioLergavi Jaragerman hospitalStart: 46-05-7185Fcjmdpycihq alanine amino alt sgptLergavi [place] BluffStart: 08-25-2017 Transferase aspartate amino ast sgotFlagstaff Medical Centergavi Jaragerman hospitalStart: 22-00-4653Ujtg Muniz Start: 13-05-8224Oqlh manage trn per indivEdilberto Jaragerman hospitalStart: 08-09-2017 Diabetes self-monitoring health educationMark FoxStart: 10-32-7274Bsvprlaj foot examinationLeroy Marekgerman hospitalStart: 09-08-1312Jlzyfry measurement, quantitativeMark FoxStart: 89-35-9742Jtzpuzv quantitative blood xcpt reagent stripLergavi Jaragerman hospitalStart: 07-93-9887Goqsphcrig A1c measurementMark FoxStart: 08-05-2017 Hemoglobin glycosylated p1eCrnup Schrogerman hospitalStart: 22-18-4157VU-DipLeroy Zamora Start: 46-02-4244Ucyn FlavioStart: 98-50-0461Xrr meds verified w/pt or reLeroy Marekgerman hospitalStart: 26-52-6404Kkwwsqnjcdmfs of current medicationsMark FoxStart: 98-45-0870Renvddb Medications Verified MIPSLeroy Schrogerman hospitalStart: 04-05-2017 Diabetic foot examinationLer Marekgerman hospitalStmilwaukee: 43-14-9432Rtam FoxStart: 75-13-4874Ardshwa measurement, quantitativeMark [place]Start: 23-48-5350Pbdavki quantitative blood xcpt reagent stripEdilberto Jaragerman hospitalStart: 25-40-8154Sqctczlzqv A1c measurementMark FoxStart: 94-17-5146Losdelwstj glycosylated e8gSvajd Marekgerman hospitalStart: 07-46-2339EWMZDRWTCZZL/Urine Creat RatioLergavi Jaragerman hospitalStart: 96-21-0203Jpyb FoxStart: 91-37-1361Rqv UA (for Ketones)Edilbertogavi Jaragerman hospitalStart: 38-14-4945Twjg [place]Start: 60-55-0199Tey meds verified w/pt or reLeroy Sera Start: 65-93-4832Ikkhbimkdqhma of current medicationsMark [place]Start: 64-02-5798Qw strs tst xers&/or rx cont ecg w/si&rLeroy Marekgerman hospitalStart: 02-17-2017 Electrocardiogram with exercise testMark FoxStart: 87-24-2320Ywmtgahlxg spect multiple studiesLer Marekgerman hospitalStart: 51-12-3463Ldxncytbpap injectionLergavi Jaragerman hospitalStart: 77-32-7359Ft97q sestamibiLeroy Marekgerman hospitalStart: 18-71-9990Vap meds verified w/pt or reLeroy Marekgerman hospitalStart: 11-93-6017Rzwrmmoceenyp of current medicationsMark FoxStart: 09-60-6229Otq routine ecg w/least 12 lds w/i&rLeroy Marekgerman hospitalStart: 16-39-9507Sevrxxt measurement, quantitativeMark FoxStart: 21-90-2609Epdkwka quantitative blood xcpt reagent stripLergavi Jaragerman hospitalStart: 13-39-0717Ssjcpakeqr A1c measurementMark FoxStart: 04-05-6062Ajucjepijs glycosylated z9bMifaf [facility]arekgerman hospitalStart: 63-60-9612Hxdbjzii foot examinationLer Marekgerman hospitalStart: 03-08-3312Zao UA (for Ketones)Edilberto Marekgerman hospitalStart: 11-23-2016 Ericka FoxStart: 97-31-1682Vvoyeeg aminotransferase measurementMark FoxStart: 39-78-8955Dtocfcjii aminotransferase measurementMark FoxStart: 09-21-2016 End: 41-74-5681Shdeg metabolic panel calcium totalLeroy MarekederStart: 02-73-2476Pkfgeubmtq A1c measurementMark FoxStart: 35-31-0568Srtmktkgao glycosylated e6cZefvg SchroederStart: 28-31-0412Lljup panelLeroy MarekederStart: 99-46-0146Opwyj panelMark FoxStart: 56-27-1453Ezysvcsagnu alanine amino alt sgptLergavi SchroederStart: 26-33-9741Kfrcfcjilfx aspartate amino ast sgotLergavi SchroederStart: 19-51-1075Elegp metabolic panel calcium ionizedLeroy Sera Start: 79-64-6955Ztodx chemistryMark FoxStart: 31-92-6181WULNPHAPTMOK/Urine Creat RatioLergavi Jaragerman hospitalStart: 37-16-6518Iiiz FoxStart: 94-44-8371Eskql brachial pressure indexMark FoxStart: 87-59-7694Foh-invas physiologic std extremity art 2 levelLeroy MarekederStart: 57-22-6608Lpvst brachial pressure indexMark FoxStart: 69-39-3308Eccrqdzx foot examinationLeroy SchroederStart: 18-10-6483Uzr-invas physiologic std extremity art 2 levelLergavi SchroederStart: 48-12-6135Ykytr of thyroid stimulating hormone tshLeroy MarekederStart: 34-90-3232Fjxyn of thyroxine totalLeroy SchroederStart: 92-98-5007Qasvo metabolic panel calcium totalLeroy SchroederStart: 93-66-9820Sovaleuxvp A1c measurementMark FoxStart: 13-13-6030Wmiefoferv glycosylated n9pLyfrogavi Zamora Start: 28-87-2847TMGSUZUCAPXN/Urine Creat RatioLergavi MarekederStart: 07-30-2016 Thyroid stimulating hormone measurementMark FoxStart: 82-63-8159Qvovajana measurementMark FoxStart: 21-28-9108Dgyp FoxStart: 47-24-8499Qdfsb metabolic panel calcium ionizedLeroy MarekederStart: 21-57-1151Vmbog metabolic panel calcium totalLeroy SchroederStart: 08-92-7857Htdae chemistryMark FoxStart: 50-54-9360Wts UA (for Ketones)Edilberto MarekederStart: 45-17-7420Uilc FoxStart: 98-80-3768Bxqwubyt foot examinationLeroy SchroederStart: 08-64-1173Yxsdqvx aminotransferase measurementMark [place]Start: 60-62-0472Tbexiufvd aminotransferase measurementMark FoxStart: 73-98-9197Prfdy metabolic panel calcium totalLeroy [place]uffStart: 46-37-3967Kbsbdmbqfe A1c measurementMymichigan Medical Center SaultStart: 03-20-2016 Hemoglobin glycosylated g7dApleb [place]Start: 22-53-3274Dvdxu panelLerCaro CenterStart: 00-47-5113Ywzdt panelMark [place]Start: 51-57-9603Fjtslmbsvtc alanine amino alt sgptLeroy [place]uffStart: 47-84-8536Wcrvdpqwykc aspartate amino ast sgotLergavi [place]uffStart: 99-64-3428Crhhe metabolic panel calcium totalLerCaro CenterStart: 12-79-4629Fninqas measurement, quantitativeMymichigan Medical Center Sault Start: 12-11-5013Oiwxyflanp A1c measurementMymichigan Medical Center SaultStart: 29-68-4693Lxxkshfoin glycosylated g2zZcqpz [place]Start: 51-80-5038Wavjc of thyroid stimulating hormone tshLerCaro CenterStart: 24-98-0445Tsfkw of thyroxine totalLerCaro CenterStart: 97-51-6895Svinfmi measurement, quantitativeMark FoxStart: 25-42-3067Dfrqnsy quantitative blood xcpt reagent stripLeroy [place]uffStart: 30-94-7839Uyldjuuypj A1c measurementMymichigan Medical Center SaultStart: 93-34-9811Ekrbqbgizz glycosylated k0tFsyxaCaro CenterStart: 08-99-7954IHZIFVGYSSRI/Urine Creat Ratio Edilberto [facility] Hospitalart: 94-51-8026Ighnucz stimulating hormone measurementMymichigan Medical Center Sault Start: 59-93-9327Bowcyywso measurementMymichigan Medical Center SaultStart: 87-55-4253Fwkk [place]Start: 11-18-2015 End: 90-90-9617Hgkfylc analysis electroencephalogramLerCaro CenterStart: 88-98-9542Pcoxbmewwghwqbrsohwctij procedureMark [place]Start: 71-61-0859Yzjulygn measurementMymichigan Medical Center SaultStart: 88-64-0918Pmeyhohu totalLerHelen M. Simpson Rehabilitation Hospitalart: 30-64-4797Thmkryuo foot examinationLerCaro CenterStart: 36-72-0092Pmlui metabolic panel calcium totalLerCaro CenterStart: 32-55-5938Ybhzpgwjfk A1c measurementMymichigan Medical Center SaultStart: 11-62-9343Ygibyyuked glycosylated d2vVypuwCaro Center Start: 11-17-5892PZUAMZCKBHFD/Urine Creat RatioLerCaro CenterStart: 11-03-2015 Ericka FoxStart: 50-61-4109Libsd of c-peptideLeroy [place]uffStart: 48-75-8069Jxfkr metabolic panel calcium totalLerCaro CenterStart: 04-50-4220Tyzlqgkc measurementMark [place]Start: 09-39-8188Lgnxgwdh totalLerCaro CenterStart: 91-55-6422Gtwo manage trn per indivLeroy [place]Start: 62-60-1238Zcbiwhgm self-monitoring health educationMark FoxStart: 19-96-5220Sxjdjfgr foot examinationLerCaro CenterStart: 53-39-3862Kjpfqym measurement, quantitativeMark [place]Start: 21-66-5780Lxbnfhz quantitative blood xcpt reagent stripLerCaro CenterStart: 04-59-3959Himiaxk C-peptide measurementMark FoxStart: 09-29-2015 Medical nutrition assmt&ivntj indiv each 15 miLeroy Schrogerman hospitalStart: 09-29-2015 Therapeutic prophylactic/dx injection subq/imLeroy [place]uffStart: 09-24-2015 Unlisted pulmonary service/procedureLerCaro CenterStart: 36-52-9990Nwhkklvb spec ige crude allergen extract eachLerCaro CenterStart: 43-91-1802Nmyal of gammaglobulin igeLerCaro CenterStart: 22-44-4772Brmhu count complete auto&auto difrntl wbcLerCaro CenterStart: 45-36-0066Iahlkcsl blood countMark FoxStart: 96-42-0659Ljhjagamovd sedimentation rate, non-automatedMark FoxStart: 08-26-2015 Immunoglobulin E measurementMark [place]Start: 47-96-3935Srypsmtvlzxgz rate rbc non-automatedLerCaro CenterStart: 89-08-2538Rxsiwuizo ConsultLerCaro Center Start: 14-81-4555Rikv FoxStart: 84-12-1952Uh strs tst xers&/or rx cont ecg w/si&rLeroy [place]uffStart: 27-79-2112Iahnacxsvfcuntbtj with exercise testMark FoxStart: 00-71-4914Wywsscffxx spect multiple studiesLeroy Schrogerman hospitalStart: 13-86-8957Tvugynuyprt injectionLerCaro CenterStart: 16-50-3811Vt91b noah Casanova SchroederStart: 24-12-6034Eorrabw aminotransferase measurementMark Flavio Start: 51-13-9911Cjktfirwx aminotransferase measurementMark FoxStart: 08-04-2015 Basic metabolic panel calcium totalLergavi SchroederStart: 65-85-5478Obslaygtug A1c measurementMark FoxStart: 16-85-2354Ynodsemjog glycosylated x7hChbaw SchroederStart: 33-09-0816Kievm panelLergavi SchroederStart: 93-96-8264Yncnj panel Ericka FoxStart: 85-66-6855GVMBPZKNYGUV/Urine Creat RatioLergavi SchroederStart: 65-18-8724Geuucljylmn alanine amino alt sgptEdilberto SchroederStart: 08-04-2015 Transferase aspartate amino ast sgotLergavi [facility]rogerman hospitalStart: 45-32-4417Dppi Flavio Start: 74-85-7563Wjdff x-rayLergavi Schrogerman hospitalStart: 23-19-3338Ytb routine ecg w/least 12 lds w/i&rLeroy Sera Plan of Treatment DateCare ActivityDetailAuthorStart: 08-05-2025 End: 50-46-4783Qzjzmvy encounter yzinqjjky48/26/2026 2:30 PM EST Office Visit [facility] [address] [place] [address] Kimmie Yarbrough MD [address] [place] [address] NOMJose [facility]ocrinologyStart: 56-93-6038Fnfru of prostate specific antigen totalPSA totalNewfieldOM Latam [facility] Start: 91-09-6468Phcjr of testosterone freeTotal and free testosterone panel by equilibrium dialysisNewfieldOM Latam [facility] Start: 27-80-2575Wyutp of testosterone totalTotal and free testosterone panel by equilibrium dialysisAultman Hospital [employer] Start: 60-60-3555Mzqcduuglfbbv metabolic panelCMP [place] [employer] [facility] Start: 97-05-1605Iceljisvrh glycosylated a1cHgb A1c [facility] [employer] [facility] Start: 17-99-5181Xoytd panelLipid panelBarney Children'S [facility] Start: 04-08-2025 End: 28-06-5142Kefcokq encounter euiifdiqi34/29/2025 2:10 PM EDT Office Visit [facility] [address] [place] [id number] Kimmie Yarbrough MD [address] [place] [address] ArrivedAMARAMS Otto EndocrinologyComment on above:ArrivedStart: 04-08-2025 End: 29-15-6261Fnmlg metabolic 1998 panel - Serum or PlasmaBasic metabolic panel 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 Expected: 04/08/2025 (Approximate), Ex ana m: 04/08/2026NOIN HealthcareComment on above:Expected: 04/08/2025 (Approximate), Expires: 04/08/2026Start: 04-08-2025 End: 52-73-2986Cshhvfre [Mass/volume] in Serum or PlasmaFerritin 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 Expected: 04/08/2025 (Approximate), Expires: 2025NOIN HealthcareComment on above:Expected: 04/08/2025 (Approximate), Expires: 04/08/2026Start: 04-08-2025 End: 28-88-2855Tapcogqzjr [Mass/volume] in BloodHemoglobin 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 Expected: 04/08/2025 (Approximate), Expires: 04/08/2026NOIN HealthcareComment on above:Expected: 04/08/2025 (Approximate), Expires: 04/08/2026Start: 04-08-2025 End: 42-95-3153MlqumfprbUapoazjax 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 Expected: 04/08/2025 (Approximate), Expires: 04/08/2026NOIN HealthcareComment on above:Expected: 04/08/2025 (Approximate), Expires: 04/08/2026Start: 04-08-2025 End: 15-20-6455Xwygpkjl specific Ag [Mass/volume] in Serum or PlasmaPSA 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 Expected: 04/08/2025 (Approximate), Expires: 04/08/2026[facility] Work Phone: Comment on above:Expected: 04/08/2025 (Approximate), Expires: 04/08/2026Start: 04-08-2025 End: 80-26-4552Lzk hormone binding globulinSex hormone binding globulin 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 Expected: 04/08/2025 (Approximate), Expires: 04/08/2026[facility] HealthcareComment on above:Expected: 04/08/2025 (Approximate), Expires: 04/08/2026Start: 04-08-2025 End: 81-82-8418Uvigwtivqhuk [Mass/volume] in Serum or PlasmaTestosterone 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 Expected: 04/08/2025 (Approximate), Expires: 04/08/2026NOIN HealthcareComment on above:Expected: 04/08/2025 (Approximate), Expires: 04/08/2026Start: 42-93-3451Hhkvephha vaccinationInfluenza Vaccine (#1) [facility] HealthcareStart: 74-73-2158Mcxufcakpscsg metabolic panelCMPBMarietta Osteopathic Clinic [employer] [facility] Start: 07-78-7135Tdudhyhmrf glycosylated a1cHgb A1c [place] [employer] [facility] Start: 78-75-2040Vwvgd panelLipid panelAultman Hospital [employer] [facility] Start: 30-69-4950Krnrlncaksluy metabolic panelComp [place] [employer] [facility] Start: 69-19-1894Ykvznhfssz glycosylated a1cA1c [place] [employer] [facility] Start: 99-66-3669Ydjxd panelLipid panelLivingston [employer]ot[employer] [facility] Start: 17-43-7384Ahhef of thyroid stimulating hormone tshTSHBlanProMedica Fostoria [facility] [employer] [facility] Start: 37-06-2415Ursftbefatvnk metabolic panelAultman Hospital [employer] [facility] Start: 44-88-9217Ofjaqzmrfewjhg vitamin b-12B12 level [place] [employer] [facility] Start: 46-85-8333Gznzewiknu glycosylated u6pXbunuapql [employer] [facility] Start: 36-10-2606Stuxc panelLipid profileLivingston Hellotravel [facility] Start: 42-24-2309Qdwmeoqkkm glycosylated a1cA1c [place] [employer] [facility] Start: 02-08-7996Cyvul of prostate specific antigen totalPSA totalNewfieldOM Latam [facility] Start: 74-67-0574Hgnvs count complete automatedCBC PLATELET COUNT; AUTOMATEDNewfieldOM Latam [facility] Start: 84-41-6615Mijyhfvuofxqf metabolic panelCMP [place] [employer] [facility] Start: 23-77-9106Hepqh panelLipid panelNewfieldOM Latam [facility] Start: 99-62-7955Qvhwavftbaegh metabolic panelCMP (comprehensive metabolic panel)[employer] [facility] Start: 16-78-5811Nunhxuajvi glycosylated j9eISDZEBTSAK V6RIixqicsxbOM Latam [facility] Start: 36-60-9545Svgql panelLipid profileNewfieldOM Latam [facility] Start: 50-15-4048Ozgnhfeef vaccinationInfluenza Vaccine (#1)[facility] HealthcareStart: 84-54-1944Okjkq of prostate specific antigen total PSA, totalNewfieldOM Latam [facility] Start: 10-69-3254Lbsyy count complete automatedCBC PLATELET COUNT; AUTOMATEDNewfieldOM Latam [facility] Start: 06-66-7987Pdwaqvbzkrqwf metabolic panelCMP [place] [facility]Tra[facility] start: 10-97-1417Rdqxyzr quantitative blood xcpt reagent stripGLUCOSELivingston BlockTrail [facility] Start: 55-83-5586Gvgvwqvdsi glycosylated i3zUXIPBMBLKD G5ARkzugqwsa BlockTrail [facility] Start: 38-45-8859Kjsrh panelLipid profileLivingston Hellotravel [facility] Start: 59-88-4678Eyazmdkuycv alanine amino alt sgptSGPT (ALT)[place] [employer] [facility] Start: hydroxy includes fractions if performedVITAMIN D 25-HYDROXYNewfieldOM Latam [facility] Start: 10-90-4787[place] of parathormonePTH-INTACT [place] [employer] [facility] Start: 07-64-1007Nuzqsshtlatko metabolic panelCMP (comprehensive metabolic panel)[place] [employer] [facility] start: 96-83-8280Yqqbjxyiac glycosylated s9pGRWPAYVRAR Z7APuhngpbfeOM Latam [facility] Start: 62-60-8449Sxjiw panelLipid panelNewfieldOM Latam [facility] Start: 56-58-1948S-ray of left ankleANKLE COMPLETE X- RAY 3 VIEWSNewfieldOM Latam [facility] Start: 92-37-6492EX Foot - right WO and W contrast IV [facility] Clinictart: 85-70-9832XMS of right foot with contrastMR foot RT wo/w [facility]art: 42-11-2318XU Ankle - right WO and W contrast IVFthree rivers hospital [facility] CenterStart: 50-17-9409XFT of right ankle with contrastMR ankle RT wo/w [facility]art: 90-69-0347Rhhlu of lactateLactic acid serumLivingston [employer]otravel [facility] Start: 29-45-4352Ktdsg count complete auto&auto difrntl wbcCBC w diffNewfieldOM Latam [facility] Start: 62-52-2257A-reactive proteinCRPBlanshasta regional medical center [employer] [facility] Start: 67-53-0277Cilusoqdmsfqw metabolic panelCMP [employer]Drop[employer] [facility] Start: 59-64-1835KPD of lower extremityMRI ankle and footNewfieldOM Latam [facility] Start: 66-94-9211Tjhwfykqglezu rate rbc non-automated ESR non-autoNewfieldOM Latam [facility] Start: 31-52-6800Owvayu scan of lower limb veinsUS venous duplex LE RTMarietta Osteopathic Clinictart: 79-60-4281GG Lower extremity vein - rightThe [facility] Work Phone: Start: 79-07-4410H-ray of left ankleANKLE COMPLETE X- RAY 3 InnoCCNewfieldOM Latam [facility] Start: 50-18-6553T-ray of left footFOOT COMPLETE X-RAY 3 InnoCCNewfieldOM Latam [facility] Start: 88-22-2096Qtujr of prostate specific antigen totalPSA totalNewfieldOM Latam [facility] Start: 60-50-7106Yhjvyqokjtacj metabolic panelComp [employer]Drop[employer] [facility] Start: 71-62-6104Sbxldaoxwn glycosylated a1cA1c [employer] [facility] Start: 72-90-8801Nafel panelLipid panelNewfieldWhatSalon Start: 96-26-7096Koqnn of glutamyltrase gammaGAMMA GT MonroeMarginLeft Start: 36-02-9389Frzom count complete automatedCBC PLATELET COUNT; AUTOMATEDNewfieldWhatSalon Start: 43-74-9561Hnywlslasjdlj metabolic panelCMP (comprehensive metabolic panel)MonroeMarginLeft Start: 08-67-2747Sajkfsnfhe glycosylated f5dEPUNOTVXBK D7UNxjsuhqpkWhatSalon Start: 89-33-5603Qrh bact xcpt urine blood/stool aerobic isolWound culture and sensitivityNewfieldWhatSalon Start: 78-45-7629Khk-scan lxtr art/artl bpgs uni/lmtd studyABI w/ segmental pressures and waveformsNewfieldWhatSalon Start: 54-90-4139Dpl-invas physiologic std extremity art 2 levelABI w/ segmental pressures and waveformsNewfieldWhatSalon Start: 87-69-4690Fru-invasive physiologic study extremity 3 levlsABI w/ segmental pressures and waveformsNewfieldWhatSalon Start: 15-19-0696Pwcvg X-ray of toeTOES X-RAY 2-3 VIEWS [employer]Drop[employer] [facility] Start: 22-26-0046Urdat count complete automatedCBC & PLATELET COUNT; Tinypay.meNewfieldWhatSalon Start: 03-59-3270Ahqsghdnxegxc metabolic panelCMP (comprehensive metabolic panel)[facility] [facility] [facility] Start: 19-10-2561Dqzaxecgzg glycosylated a1cA1c MonroeMarginLeft Start: 60-50-7714Nsxtr panelLIPID PROFILEAultman Hospital [facility] Start: 08-39-2743Pltip of glutamyltrase gammaGAMMA GT [facility] Start: 12-59-0015Fkpoh metabolic panel calcium total Chem [facility] Start: 06-00-5998Ctfdejeixk glycosylated r2vHTBXRBKMIN A0ZEvzcqwixuAultman Hospital [facility] Start: 67-42-3955Loyjc count complete automatedCBC PLATELET COUNT; AUTOMATEDAultman Hospital Standing [facility] Start: 38-83-6148Glowgcuenufjl metabolic panelComp [facility] Start: 55-62-9239Dljycfvnsp glycosylated a1cA1c [facility] Start: 25-46-1343Lbxas panelLipid panelAultman Hospital [facility] Start: 41-16-5758Yvfhn of parathormonePTH-INTACT [facility] [employer]kids [facility] Start: 78-71-3796Xbbje of phosphorus inorganic Phosphorus, serumAultman Hospital [facility] Start: 96-86-3305Iqrmx count complete automatedCBC PLATELET COUNT; AUTOMATEDAultman Hospital Brandkids [facility] Start: 72-53-6035Rcowpfgihslgw metabolic panelCMP (comprehensive metabolic panel)[place] Block[place]il [facility] Start: 59-60-9635QmQ5m (Bld) [Mass fraction]HEMOGLOBIN O0QOlsrsqhzcAultman Hospital [facility] Start: 01-61-8861Yaoujgtdfo glycosylated x3qBBIUUGVFGS K0GMsufbnajnAultman Hospital [facility] Start: 20-65-8953Gcvingtxmf measurementCreatinPark City Hospital, [place]Start: 14-56-8018Kgdfmgldj monitoringPotassium [facility], DCStart: 80-42-1620Gyzkl of prostate specific antigen totalPSA totalLivingston Hellotravel [facility] Start: 05-34-3572Onxwjhyzskqdj metabolic panelCMP (comprehensive metabolic panel)[facility]MarginLeft start: 99-31-7113MtD6t (Bld) [Mass fraction]HEMOGLOBIN Q7MFjlfwbyfwWhatSalon Start: 30-46-9930Ujnrcoq quantitative blood xcpt reagent stripGLUCOSE 2 HR Post PrandialNewfieldWhatSalon start: 45-47-4881AjD8k (Bld) [Mass fraction]HEMOGLOBIN W5ZPttknlmtaWhatSalon start: 77-61-2792Bwgefmh function panelLFT (liver function test)MonroeDropbox [facility] Start: 65-17-6089Vkyklv Wellness Visit (AWV)Annual Wellness Visit (AWV)[facility], DCStart: 29-60-3031Uuidcbwdq vaccination [facility]: 12-28-2019 End: 40-81-6671Pwvdozbb EncounterMTHZ ORComment on above:SHOULDER ARTHROSCOPY ROTATOR CUFF REPAIR, POSSIBLE BICEPS TENDONDESISStart: 12-28-2019 End: 23-01-0482Xeajhdvi EncounterMTHZ ORComment on above:SHOULDER ARTHROSCOPY ROTATOR CUFF REPAIR, POSSIBLE BICEPS TENDONDESISStart: 46-11-5205Rtqet metabolic panel calcium totalChem 8[facility] Hellotravel [facility] Start: 94-34-0792RkQ7o (Bld) [Mass fraction]HEMOGLOBIN M0ASsplvyrgsWhatSalon Start: 50-45-3346Bqtgddnddxzdw metabolic panelComp MonroeMarginLeft start: 49-03-6821EqB3q (Bld) [Mass fraction]A1c MonroeMarginLeft Start: 35-17-8660Slfbd panelLipid panelNewfieldWhatSalon Start: 75-58-8672Spvus metabolic panel calcium total Chem 8[facility] [employer] start: 70-72-2869Iwomv metabolic panel calcium total Chem 8[facility] Hellotravel [facility] Start: 21-13-7468Jimrh glutamyl transferase [Catalytic activity/Vol]GGTNewfieldWhatSalon Start: 50-83-5799NlD9y (Bld) [Mass fraction]HEMOGLOBIN Y8APxsnnscltWhatSalon Start: 40-39-4096Bqplw of prostate specific antigen totalPSA totalNewfieldWhatSalon Start: 42-14-8158Fdrwr count complete automatedCBC & PLATELET COUNT; AUTOMATEDNewfieldOM Latam [facility] Start: 09-16-8507Gwulwvnmwbnvn metabolic panel Comprehensive metabolic panelNewfieldWhatSalon Start: 46-38-5869Dcxlr panelLipid panelNewfieldOM Latam [facility] start: 01-83-8159Czzvq dip stick/tablet rgnt auto w/o microscopyUrinalysis autoNewfieldOM Latam [facility] Start: 39-99-5418Wc adm prq id subq/im njxs 1 vaccine Administration of single vaccineNewfieldWhatSalon Start: 86-76-7538Kujwd of glutamyltrase gammaGAMMA GT MonroeN[employer] Start: 17-25-9569Gvsgfvpcznage metabolic panelCMP (comprehensive metabolic panel)[employer] start: 00-66-5266Tstjyvmlxy A1c/Hemoglobin.total mass fraction (Bld)HEMOGLOBIN U6EImazzlmguWhatSalon start: 62-49-5408Tqsey of prostate specific antigen totalPSA totalNewfieldWhatSalon start: 92-16-0076Nszkk count complete automatedCBC & PLATELET COUNT; AUTOMATEDNewfieldWhatSalon start: 36-24-7079Qonbqiiklylkm metabolic panel Comprehensive metabolic panelLivingston [employer] start: 64-49-6430Viwskccbcx A1c/Hemoglobin.total mass fraction (Bld)Hgb L4iFjfqlhjkqWhatSalon start: 36-60-4274Cvcuh panelLipid panelNewfieldWhatSalon start: 50-01-8246Foisefk nutrition re-assmt&ivntj indiv ea 15 mMedical nutrition therapy; re-assessment and intervention, individual, xdar-yv-fedw with the patient, each 15 minutesNewfieldWhatSalon start: 09-90-1032Sjzosry nutrition re-assmt&ivntj indiv ea 15 mMedical nutrition therapy; re-assessment and intervention, individual, rynv-js-zcsx with the patient, each 15 minutesNewfieldWhatSalon start: 68-51-3643Evzxkcb mass concGLUCOSENewfieldWhatSalon start: 43-38-8235Exobldmzyp A1c/Hemoglobin.total mass fraction (Bld)HEMOGLOBIN R2LSfopkoyzkWhatSalon start: 85-03-7794Mxpleim function panelLiver function panelNewfieldWhatSalon start: 54-31-2703Psvbmag nutrition re-assmt&ivntj indiv ea 15 mMedical nutrition therapy; re-assessment and intervention, individual, jiuq-li-ioou with the patient, each 15 minutesNewfieldWhatSalon start: 83-67-0858Hhjdxyt nutrition re-assmt&ivntj indiv ea 15 mMedical nutrition therapy; re-assessment and intervention, individual, brko-xx-lmno with the patient, each 15 minutesBar[facility] Start: 44-45-5812Plcpqcp mass concGLUCOSEBarney Children'S Medical Center start: 05-52-5495Omjielxgza A1c/Hemoglobin.total mass fraction (Bld)HEMOGLOBIN O6KNuxhwimjiBarney Children'S Medical Center Start: 64-99-7419Uzvxyux nutrition re-assmt&ivntj indiv ea 15 mMedical nutrition therapy; re-assessment and intervention, individual, zhlf-zo-dmrg with the patient, each 15 minutesBarney [facility]'S [facility] Start: 32-92-9712Meuyrwm function panelLiver function panelBarney Children'S Medical Center Start: 19-90-4573Arldmiytp for malignant neoplasm of colonColon cancer screen colonoscopyUnion [place], [place]: 2014 Shingles Vaccine (1 of 2)Shingles Vaccine (1 of 2)[facility]: 20-88-0841Judmoegg screenDiabetes [place], [place]Start: 11-11-1983 DTaP/Tdap/Td vaccine (1 - Tdap)DTaP/Tdap/Td vaccine (1 - Tdap)[facility]: 86-51-7760Qayme screening for proteinDiabetes: Urine Protein Screening [facility] HealthcareStart: 1748HEE screeningHIV [place], [place] Start: 21-27-3125Kvxziglm screeningDiabetes: Retinopathy ScreeningNOMS HealthcareStart: 64-49-3836Bcqnl panelLipid [facility] Hospitalart: 88-52-3534Ynxufmpvdebi 0-64 years Vaccine (1 of 1 - PPSV23)Pneumococcal 0-64 years Vaccine (1 of 1 - PPSV23)[facility]: 73-30-7163Aaerrrhhft measurementCreatinine monitoringSamaritan Hospital, KYStart: 56-66-5832Iwpoqxjdwv A1c measurementDiabetes: Hemoglobin D3DZYCD HealthcareStart: 16-00-3505Wtbxqudua C screeningHepatitis C screenSamaritan Hospital, KYStart: 05-03-1965Medicare Annual Wellness (AWV)Medicare Annual Wellness (AWV)[facility] HealthcareStart: 12-66-3066Mpfpqecgl monitoringPotassium monitoringSamaritan Hospital, KYStart: 21-02-8493Gjyhjkbqn for malignant neoplasm of colonNOIN HealthcareInitiate Oxygen Therapy ProtocolInitiate Oxygen Therapy Protocol Respiratory Care Routine Daily until discontinued starting 12/28/2019[facility], KYComment on above:Daily until discontinued starting 12/28/2019[facility] EducationCommunity [facility] Work Phone: Patient referralCommunity [facility]tr Work Phone: Phase I & II - metered glucosePhase I & II - metered glucose Point of Care Testing Routine As Needed until discontinued starting 12/28/2019[facility], KYComment on above:As Needed until discontinued starting 12/28/2019SNORING AND OBESITYDiley [facility] [place] [facility] Immunizations Immunization DateImmunizationNotesCare RetksklcWzjgthwb59-30-1931XYOWN-36, Moderna, 100mcg/0.5mlWendi [facility] 1244890-55-8599klrmsqokh A and hepatitis B vaccineWendi [facility] Brandkids [facility] 1025510-79-1364gvthqfg, mumps and rubella virus vaccineWendi [facility] 1793329-12-1388Gzihctdc trivalent influenza vaccine, adjuvanted, preservative freeWendi [facility] [place] [facility] 1495694-08-5207rsijztzvt virus vaccine, unspecified formulationKimmie Yarbrough MD Work Phone: [phone] Richardson StreetDakjxszapp04-59-0806GPVEQ-58, Moderna, 100mcg/0.5mlMark [facility] 01-446729-03-8617GOP01Soio [facility] 93-94124410-47-8447QGKQM-34, Pfizer, 30mcg/0.3mlLeroy [facility] 1817492-81-3890icwxybitw, injectable, quadrivalent, contains preservativeLerProMedica Fostoria Community [facility] 1758475-07-2048mmtcgwzkp virus vaccine, unspecified formulationShay Patterson DO Work Phone: CenterPointe HospitalGsuocdsnif95-48-6742zgytyjyli A and hepatitis B vaccineJeremy [facility] 04-687108-84-4946bqjtdtnyu B vaccine, adult dosageJesumma health wadsworth - rittman medical centery [facility] 04-100684-14-1092saycsq vaccine, liveJeremy [facility] 12707994-12-4877PKDVL-46, Moderna, 100mcg/0.5mlLeroy [facility] 04-261951-68-9581WPHNY-11, Moderna, 100mcg/0.5mlLeroy [facility] 29-95422139-52-5256XUBXJ-26, Moderna, 100mcg/0.5mlLeroy [facility] 09-442928-75-8005updxgvxol virus vaccine, unspecified formulation; Translations: [Administration of influenza virus vaccine][facility] 19-17397712-20-1304eosrbsfku, high dose seasonal, preservative- free; Translations: [FLU VACC PRSV FREE INC ANTIG]Edilberto [facility] 1773876-97-4254vrayqjhfv, injectable, quadrivalent, contains preservative; Translations: [FLU VACC 4 FRANCISCO 3 YRS PLUS IM]Edilberto Zamora [facility] 1455509-91-4889gqjuepshm, seasonal, injectableGucciProMedica Fostoria Community Hospital 1534865-98-2912DEMDPKALSWKM ADMIN; Translations: [IMMUNIZATION ADMIN][facility] 1043964-15-6869Ogpc HangoAultman Hospital Brandkids [facility] 1835257-99-7678kwghrpowr, seasonal, injectable; Translations: [FLU VACCINE 3 YRS & > IM]EdilbertoJoomeDecatur County General HospitalGreen Dot Corporation [place] Brandkids [facility] 1113178-00-2068KELDVYURASQO ADMIN; Translations: [IMMUNIZATION ADMIN]EdilbertoNavitas Midstream PartnersNewfieldGreen Dot Corporation [place] Brandkids [facility] 1049355-59-0567Fgee HangoNewfieldOM Latam [facility] 09-355702-73-7487osicspiit, seasonal, injectable; Translations: [FLU VACCINE 3 YRS & > IM]Edilberto SwivlDecatur County General HospitalGreen Dot Corporation [place] Brandkids [facility] 09-632458-18-3320DUCCGDMXBKNZ ADMIN; Translations: [IMMUNIZATION ADMIN]EdilbertoNavitas Midstream PartnersNewfieldOM Latam [facility] 09071685-04-8407Slxf HangoNewfieldOM Latam [facility] 09907584-58-9718tqzwpqpqj, seasonal, injectable; Translations: [FLU VACCINE 3 YRS & > IM]EdilbertoNavitas Midstream PartnersNewfieldOM Latam [facility] 09-426734-05-5210LEPKVHZEFLNN ADMIN; Translations: [IMMUNIZATION ADMIN]EdilbertoNavitas Midstream PartnersNewfieldOM Latam [facility] 09-772000-62-8276Mzgg PlayFitnessconey island hospitalWhatSalon Payers DatePayer CategoryPayerPolicy [id number] [id number] 2021MedicareANTHEM MEDICARE ADVANTAGE [facility] MEDICARE ADVANTAGE [id number] 2020- [address] [place] [id number] 2021Medicare (Managed Care)ANTH MEDICARE ADVANTAGE [id number] [id number] 1.2.840.562061.1.13.239.2.7.3.346[id number] 2.840.1.117252.3.57619-25-4335WfyjyxxLUANIBQSAB [employer] [place] MEDICAID xxxxxxxxxxx 2015- [phone] CLAIMS DEPARTMENT [address] [place], [place] [address]sifuudlnpxd [id number]92040.80524-07-1131Ciousye MPM51[id number] 08.26.830.1.724227.3.579.2.88181-59-2911 [id number] 08.26.830.1.941294.3.57[id number] 2.16.840.1.919758.3.57[id number] 2.16.840.1.247485.3.57[id number] 2.16840.1.029526.3.579.[id number] 2.16840.1.014519.3.57[id number] 2.16840.1.847450.3.579.2.6[id number] 2.840.1.946533.3.579.2.21685-81-1894Arbeuyy5382753 2.0.1.180383.3.579.2.52437-16-3052Hmwiqza8022570 2.16840.1.546734.3.57[id number] 2..1.926988.3.579.2.4[id number] 2.840.1.375059.3.579.[id number] 2.0.1.755324.3.57[id number] 2.840.1.292963.3.57[id number] 2.16840.1.848834.3.579.2.1259 [id number] 2.840.1.38513[id number] 2.16840.1.941397.3.441 UnknownAnthem /[id number] [id number]b2Equqlgg [id number] 2.16.840.1.5[id number] 2.16.840.1.55[id number] 2.16.840.1.135069.3.579.2.531 Social History DateTypeDetailFacilityStart: 03-80-6245KxqltccgiPhonezoo Communications Start: -2 cups a dayPhonezoo Communications Start: 12-18-2019 End: 75-39-3945Fxicbup smoking status NHISCurrent every day smokerSamaritan Hospital, DCHistory of tobacco useCigarette SmokerSamaritan Hospital, DCStart: 12-18-2019 End: 51-89-9627Xxfcblgdpv smoked current (pack per day) - ReportedSamaritan Hospital, DCStart: 12-18-2019 End: 89-58-7757Qffoxqe intakeCurrent drinker of alcohol (finding)[facility], KYStart: 75-18-4675Nbauhlt Dtgdkzt2U WEEKLYSamaritan Hospital, KYStart: 05-96-5453Jhc Assigned At BirthNot on fileSamaritan Hospital, KYExposure to SARS-CoV-2 (event)Unable to assessSamaritan Hospital, DCStart: 12-20-7250Obbgcvi use and exposureNever usedSamaritan Hospital, DCExposure to SARS-CoV-2 (event)Not sureUnion [place], KYStart: *TobaccoPhonezoo Communications Start: 04-01-2022 End: 51-89-7189Cnaekag smoking status NHISSmoker (finding)[facility] Clinictart: 55-82-8250Urj Assigned At [facility] CompanyTobacco smoking statusNo Smoking Status EnteredAvita Health Systemtart: 12-27-2022 End: 71-41-1271Nbt Assigned At [facility] Hospital - Cantontart: 93-49-2472Omepwyi Hcaftkx04-00 cigs a dayNOIN HealthcareStart: 95-39-9237Nlnteic Comment3-4 drinks 4+ times a week. Caffine intake: 2-3 cups per daySHRINERS HOSPITALS FOR CHILDREN HealthcareStart: /2 [facility] azlePhonezoo Communications Start: or 4 per [employer] Start: -3 cups a dayPhonezoo Communications Start: /4 Patient Home Monitoring Start: -2 per [employer] Start: 07-20-2024 End: 20-89-0083FrrEdis (finding)[facility] Medical Equipment Procedure CodeEquipment CodeEquipment Original TextEquipment IdentifierDates Rupert Sut Corkscrew Biocomposite [id number]: 35-22-8227Qbkkpj Suture Swivelock 4.75x19.1 Biocomposite Min [id number]: 51-95-5673Snslvg Endoscopic Bicep [id number]_impStart: 12-28-2019 Clinical Notes 04-14-2022 to 04-08-2025 Note Date & IdnlVuvqKxedhgbm87-26-9924 History of Present illness Narrative* Kimmie Yarbrough [...] 4 months (around 08/08/2025). documented in this encounterCenterPointe HospitalQagxuugzkv64-32-8347 Procedure noteSELECT MEDICAL [facility] [place] [address] [place], [place] [address] Pulmonary Function Signed Patient: Geremias Melchor MR#: [id number] : 1965 Date of Service:0 07/19/24 Age/Sex: 58 / M ADM Date: 5 Loc: RT Room: Type: [facility] Attending Dr: Ayanna Brooks SSIS ARCHITECT-C Copies to: MD Ericka Albert MD, SSIS ARCHITECT-C~ Pulmonary Function Test Complete pulmonary function studies [...] MD 07/19/241752 Signed By: 07/19/241753 [facility]05-25-2024 Hospital Discharge instructions Additional Instructions Sutures [facility] in 7 to 10 daysThe [facility] Work Phone: 1(226) 706-560801-30-2024 Telephone encounter Note* Telephone Encounter - Shon Esa - 08/09/2023 9:21 AM EST Patient called stating he fell in the bathroom and has a Q-tip jammed in his ear that will not comeout. Per Kaur patient needs to come to [facility] today at 2:30 PM. Patient states he has another appointment and does not think that will work for him. He states he will be calling his other doctor to coordinate. CenterPointe HospitalHrbyiendrb70-98-8292 Miscellaneous Notes* Telephone Encounter - Shon Esa - 08/09/2023 9:21 AM EST Patient called stating he fell in the bathroom and has a Q-tip jammed in his ear that will not comeout. Per Kaur patient needs to come to [facility] today at 2:30 PM. Patient states he has another appointment and does not think that will work for him. He states he will be calling his other doctor to coordinate. documented in this encounterCenterPointe HospitalMrxtthxuft07-20-0100 NotePROCEDURE: XR ANKLE RT MIN 3 VIEWS, [...] Electronically authenticated by: SASHA FLAHERTY Date: 2022-07-28 16:42[facility]01-18-2023 NotePROCEDURE: XR ANKLE RT MIN 3 [...] Electronically authenticated by: SASHA FLAHERTY Date: 2022-07-28 16:42[facility]12-15-2022 NotePROCEDURE: XR ANKLE RT MIN 3 [...] Electronically authenticated by: TESS JHAVERI Date: 2022-06-24 06:[facility]12-15-2022 NotePROCEDURE: XR ANKLE RT MIN 3 VIEWS, [...] Electronically authenticated by: TESS JHAVERI Date: 2022-06-24 06:[facility]10-26-2022 Progress note Author Fariha Novak [facility] May 05, 2022 2:50pmNote Date/TimeOct2021 2:50pmStark[place] [address] Wound Center Provider Note Signed Patient: Geremias Melchor MR#: [id number] : 1965 Acct:[id number] Age/Sex: 56 / M Copies to: NON STAFF Fariha Novak APRN~ HPI Date of Visit Date of Visit: Date of Service: 05/05/2022 Time of Service: 14:47 Narrative HPI: 04/14/22 Geremias is a 56-year-old male presenting to [facility] wound care program for an initial [...] is not per se happy with his animal care worker in [place] and therefore I did give him the name of a local animal care worker who could address his concerns with Charcot [...] wound start?: March 2022 Mode of Arrival/ Research Specialist: Personal vehicle Lives with:: Alone Appetite Description: Within Normal Limits Who helps w/ dressing change?: Self Smoking Status: Current every day smoker [facility] Vaccinated for COVID-19?: Yes Medical [...] Appearance: Beefy Red, Epithelial Tissue or Bridge, [place] and Yellow Percent of Wound Bed Granulated/Red: [...] <Electronically signed by RADHA Novak> 05/05/22 1450 [facility] Work Phone: 1(152) 871-723610-05-2022 Progress note Author Fariha Novak [facility] April 14, 2022 2:46pmNote Date/TimeOct2021 2:46pmStark[place] [address] Wound Center Provider Note Signed Patient: Geremias Melchor MR#: [id number] : 1965 Acct:[id number] Age/Sex: 56 / M Copies to: NON STAFF Fariha Novak APRN~ HPI Date of Visit Date of Visit: Date of Service: 04/14/2022 Time of Service: 14:37 Narrative HPI: 04/14/22 Geremias is a 56-year-old male presenting to [facility] wound care program for an initial [...] is not per se happy with his animal care worker in [place] and therefore I did give him the name of a local animal care worker who could address his concerns with Charcot [...] wound start?: March 2022 Mode of Arrival/ Research Specialist: Personal vehicle Lives with:: Alone Appetite Description: [...] w/o penetration to deeper layers Bed Appearance: [place] and Yellow Percent of Wound Bed Granulated/Red: 90 Percent of Devitalized: 10 Length (cm): 0.5 Width (cm): 0.6 Depth (cm): 0.1 CM Sq: 0.300 Surrounding Tissue Appearance: Callous Surrounding Tissue Temp: Warm Drainage Amount: Small Drainage Description: Serosanguineous Drainage Odor: No Odor Left Plantar Great Toe: Type: Diabetic Ulcer Diabetic Ulcer Grading: Superficial ulcer of skin w/o penetration to deeper layers Bed Appearance: [place] and Yellow Percent of Wound Bed Granulated/Red: 50 Percent of Devitalized: 50 Length (cm): 2.3 Width (cm): 1.5 Depth (cm): 0.1 CM Sq: 3.450 Surrounding Tissue Appearance: Callous Surrounding Tissue Temp: Warm Drainage Amount: Small Drainage Description: Serosanguineous Drainage Odor: No Odor Right Plantar Great Toe: Type: Diabetic Ulcer Diabetic Ulcer Grading: Superficial ulcer of skin w/o penetration to deeper layers Bed Appearance: [place] and Yellow Percent of Wound Bed Granulated/Red: 10 Percent of Devitalized: 90 Length (cm): 2.1 Width (cm): 1.1 Depth (cm): 0.1 CM Sq: 2.310 Surrounding Tissue Appearance: Callous Surrounding Tissue Temp: Warm Drainage Amount: Small Drainage Description: Serosanguineous Drainage Odor: No Odor Right Posterior Heel: Type: Diabetic Ulcer Diabetic Ulcer Grading: Superficial ulcer of skin w/o penetration to deeper layers Bed Appearance: [place] and Yellow Percent of Wound Bed Granulated/Red: [...] <Electronically signed by RADHA Novak> 04/14/22 1446 [facility] Work Phone: Evaluation + Plan note No data available for this section [facility] CenterEvaluation noteNo assessment information available [facility] Work Phone: Evaluation note* Diagnosis Onset Date Resolution Status Diabetic foot ulcer acuteDiabeteschronicHyperlipidemiachronicNeuropathychronicTobacco usechronic [facility] Work Phone: Evaluation note* Diagnosis Onset Date Resolution Status Diabetes chronicDiabetic foot ulcerchronicHyperlipidemiachronicNeuropathychronicTobacco usechronic [facility] Work Phone: Evaluation note* Diagnosis Onset Date Resolution Status Diabetes chronicHyperlipidemiachronicNeuropathychronicTobacco usechronicDiabetic foot ulcerresolved [facility] Work Phone: Evaluation note* Diagnosis 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 Low libido Encounter for dietary consultation Class 1 obesity due to excess calories without serious comorbidity with body mass index (BMI) of 34.0 to 34.9 in adult documented in this encounter [facility] HealthcareHospital Discharge instructions Additional Instructions Return for worsening symptoms Follow-up with wound care and podiatry or [facility]oThe [facility] Work Phone: Hospital Discharge instructions No data available for this section [facility] [facility] Additional Instructions Continue good wound care until completely healed [facility] with family [facility] as [facility]The [facility] Work Phone: Progress note Author Fariha Novak [facility] May 27, 2022 2:46pmNote Date/TimeNovember 2021 2:46[place] [address] Wound Center Provider Note Signed Patient: Geremias Melchor MR#: [id number] : 1965 Acct:[id number] Age/Sex: 56 / M Copies to: NON STAFF Fariha Novak APRN~ HPI Date of Visit Date of Visit: Date of Service: 05/27/2022 Time of Service: 14:43 Narrative HPI: 04/14/22 Geremias is a 56-year-old male presenting to [facility] wound care program for an initial [...] is not per se happy with his animal care worker in [place] and therefore I did give him the name of a local animal care worker who could address his concerns with [place] [...] wound start?: March 2022 Mode of Arrival/ Research Specialist: Personal vehicle Lives with:: Alone Appetite Description: Within Normal Limits Who helps w/ dressing change?: Self Smoking Status: Current every day smoker [facility] Vaccinated for COVID-19?: Yes Medical [...] <Electronically signed by RADHA Novak> 05/27/22 1446 [facility] Work Phone: Progress note No data available for this section [facility] Summary Purpose Family History No Family History Records Found Relationship Condition Age at Onset Recorded Date/T shannan family member Diabetes mellitus Unknown Advance Directives No Advanced Directives Records FoundDocuments on File TypeDate RecordedPatient RepresentativeExplanationAdvance Directives and Living WillPower of AttorneyTypeDate RecordedPatient RepresentativeExplanationAdvance Directives and Living WillPower of AttorneyTypeDate RecordedPatient RepresentativeExplanationACP-Advance DirectiveACP-Power of Hazardous [employer] Waste Technician Advance Directive Response Recorded Date/ Time Advance [...] for any questions regarding your surgery. Call [phone] forurgent questions after 5PM until 8AM 10. [...] MRI SHOULDER RIGHT WO CONTRAST Mignon Townsend, BELT BACK OPERATOR - OPHTHALMIC AIDE [address] [place] [address] StatusReasonSpecialtyDiagnoses / ProceduresReferred By ContactReferred To ContactOpenRadiology Diagnoses Right knee pain, unspecified chronicity Procedures MRI KNEE RIGHT WO CONTRAST Mignon Townsend, BELT BACK OPERATOR - OPHTHALMIC AIDE [address] [place] [address] Chief Complaint and Reason for Visit Chief [...] 19, 2024 5: 53pm Ref: Dr. Brooks, [facility] August 14 3:04pm Additional Source Comments (unrecognized sect ion and content) No Status Records FoundNo Status Records FoundNo Status Records FoundNo Status Records FoundNo Status Records FoundNo Status Records FoundNo Status Records FoundNo Status Records Found INFORMATION SOURCE (unrecogn ized section and content) DATE CREATED AUTHOR 11/15/2018 [facility] DATE CREATED AUTHOR AUTHOR'S ORGANIZ ATION 03/28/2020 [facility] DATE CREATED AUTHOR AUTHOR'S ORGANIZ ATION 06/21/2020 [facility] DATE CREATED AUTHOR AUTHOR'S ORGANIZ ATION 2022 [facility] DATE CREATED AUTHOR AUTHOR'S ORGANIZ ATION 06/18/2023 [facility] DATE CREATED AUTHOR AUTHOR'S ORGANIZ ATION 11/29/2024 [facility] DATE CREATED AUTHOR AUTHOR'S ORGANIZ ATION 12/22/2024 [facility] DATE CREATED AUTHOR AUTHOR'S ORGANIZ ATION 04/14/2025 [facility] Reason for Visit (unrecogniz ed section and content) StatusReasonSpecialtyDiagnoses / ProceduresReferred By ContactReferred To Contact Diagnoses Unspecified rotator cuff tear or rupture of right shoulder, not specified as traumatic RIGHT SHOULDER ROTATOR CUFF TEAR Procedures NM SHLDR ARTHROSCOP,SURG,W/ROTAT CUFF REPR SHOULDER ARTHROSCOPY ROTATOR CUFF REPAIR, POSSIBLE BICEPS TENDONDESIS Tess Escalona MD [address] [place] [address] [facility] StatusReasonSpecialtyDiagnoses / ProceduresReferred By ContactReferred To ContactClosedRadiology Diagnoses Pain in right shoulder Procedures MRI-UPPER EXT JNT WO CONT Tess Escalona MD [address] [facility] [address] [place] [address] [facility] [address] [place] [address] StatusReasonSpecialtyDiagnoses / ProceduresReferred By ContactReferred To ContactClosedRadiology Diagnoses Pain in right knee Procedures HC MRI LOWER EXTREM JT, W/O CONTRAST Mignon Townsend, BELT BACK OPERATOR - OPHTHALMIC AIDE [address] [place] [address] [facility] [address] [place] [address] ReasonCommentsTesticular Hypofunction Care Teams (unrecognized sec tion [...] Han, [address] [place] [address] PCP - Daniel WANG12/09/22 [place] [address] [place] [address] [address] [place] [id number] PCP - [facility]12/27/22 Team Status: Active Member Role Status Dates Ericka Muniz MD Primary Care Provider Active Team Status: Inactive Member Role Status Dates Mark Upton APRN Emergency Provider Active Start: December 03, 2023 End: December 03, 2023[facility] Care ProviderActiveStart: December 03, 2023 End: December [...] DateEnd Date Jignesh Muniz NP PCP - [facility]12/27/22Team MemberRelationshipSpecialtyStart DateEnd Date Jignesh Muniz [...] BE BASED ON THE PRIMARY CLINICAL RECORDS. [employer] [facility]. provides no warranty or guarantee of the accuracy or completeness of information in this document.
== END 2025-05-22 11:51 | disposition home or self-care (01) ==
LOC: WC 11:50
PROVIDERS: Visit Provider Podiatrist Foot & Ankle Surgery
DX: E11.621 Type 2 diabetes mellitus with foot ulcer (principal); L97.529 Non-pressure chronic ulcer of other part of left foot with unspecified severity; L97.519 Non-pressure chronic ulcer of other part of right foot with unspecified severity; L97.415 Non-pressure chronic ulcer of right heel and midfoot with muscle involvement without evidence of necrosis; L97.426 Non-pressure chronic ulcer of left heel and midfoot with bone involvement without evidence of necrosis
CPT/HCPCS: 73630; G0463

== ENCOUNTER 2025-06-12 12:13 | Outpatient (OUT) | payer MEDICARE, MEDICAID, SELFPAY ==
--- OUTSIDE RECORDS SUMMARY | 2025-06-10 12:30 | XMS_ITS | Continuity of Care Document ---
Author Organization [facility] Address [address] [place] [address] Phone Care Team Providers Care Underground Utility Locator Name Role Phone Mnafred Muniz MD Primary Care Provider Shira Moyer MD Emergency Provider Care Teams Patient Care Team Team Status: Active Member Role/Relationship Status Dates Manfred Muniz MD Primary Care Provider Active Visit Care Team Team Status: Inactive Member Role/Relationship Status Dates Manfred Muniz MD Primary Care Provider Active Sta rt: June 10, 2025 End: June 10david Moyer MDEmergency ProviderActiveStart: June 10, 2025 End: June 10, 2025 Chief Complaint and Reason for Visit Chief Complaint Admit Date Collarbone Pain June 10, 2025 3 :26pm Allergies, Adverse Reactions, Alerts Allergen Type Severity Reaction Last Updated Verified Status No Known Allergies Allergy Unknown June 10, 2025 3:31pmYesActive Social History Smoking Status Status Start Date End Date Date of Observa tion Never smoked tobacco (finding) June 10, 2025 4:57pm Observation Status Observation Response Date of Response Legal Sex Male (finding) Sex Assigned At BirthMaleMay 1965 Family History Relationship Condition Age at Onset Recorded Date/T shannan family member Diabetes mellitus Unknown Problems Active Problems Problem Diagnosis/Recorded Date Onset Date Status C omments Acute shoulder pain June 10, 2025 5:17pm Unknown A ctive BENJAMIN (obstructive sleep apnea)August 14, 2024 4:38pmUnknownActiveSOB (shortness of breath)July 19, 2024 1:35pmUnknownActiveDiabetesSeptember 2021 5:12pmUnknownActiveHyperlipidemiaOctober 2021 1:35pmUnknown ActiveNeuropathySeptember 2021 5:12pmUnknownActiveTobacco useOctober 2021 1:43pmUnknownActiveInactive/Resolved Problems Problem Diagnosis/Recorded Date Onset Date Status C omments Laceration December 03, 2023 4:09pm Unknown Resolved Diabetic foot ulcerOctober 2021 1:43pmUnknownResolvedEncounter for removal of suturesJune 2023 2:32pmUnknownResolvedSecond degree burn of great toe of footSeptember 2021 7:58pmUnknownResolvedProblem List clean-up per request of Phys. EHR CmteSecond degree burn of great toe of left footSeptember 2021 7:58pmUnknownResolvedProblem List clean-up per request of Phys. EHR Cmte Foot fracture, rightSeptember 2021 7:58pmUnknownResolvedProblem List clean-up per request of Phys. EHR Cmte Medications Medication Status Dose Units Route Directions Qty Days Refills S tart Date Stop Date End Date Reason(s) Instructions Adherence Sildenafil 100 mg tablet Active 100 MG PO As Directed as needed for sexual activity December 02, 2023 11:00pmUnknownFluoxetine 10 mg smcepwlDwqyio96WWBJAphxcVvn 2023 11:00pmUnknownAlbuterol Sulfate 90 mcg/actuation HFA aerosol inhalerActive1 INHINHALATIONEvery 6 hours as needed for shortness of breath or wheezingDecember 02, 2023 11:00pmUnknownCephalexin 500 mg ykhmooeNqvgrtddjawn445QQKOFjfj times bagbo418Yzy 2023 11:00pmFebruary 2024 3:12pmThiamine Hcl (Vitamin B1) 50 mg lhrfbeXsbzmw98TZEZOyxkoLkmg 2023 11:00pmUnknownPyridoxine (Vitamin B6) 25 mg cfctxtPnfexo41FJYOCxcuuMhpi 2023 11:00pmUnknownAcetaminophen (Tylenol) 325 mg nsybkqLqqctp286DXCIYgklz 6 hours as needed for citp9917Fiiyveui 2024 12:00amUnknownLidocaine (Lidoderm) 5 % adhesive patch,medicatedActive1 SGRQEQBFUEHWDcwaj31647Mwhpktdd 2024 12:00ampainleave on most painful area for up to 12 hrsUnknownCyclobenzaprine 10 mg zlazmaIfgqoa11AAPVI7I as needed for hglc6178Olypgwkn 2024 5:19pmUnknownMetformin 500 mg RirtizLopkob739HASB Three times dailyOctober 2021 11:00pmUnknownDoxepin 50 mg QhaliobWlalik24NK PODaily at bedtimeOctober 2021 11:00pmUnknownAtorvastatin 10 mg Tablet Yaeaitklagmg76KQUEZpeep at bedtimeOctober 2021 11:00pmFebruary 2024 3:16pmAlprazolam 1 mg QnymhpYadrouoiwqjj9WPVADrjsi times daily as needed for AnxietyOct2021 11:00pmFebruary 2024 3:17pmMeloxicam 15 mg Tablet Ykxviv09OKSKVwjooWkadzxc 2021 11:00pmUnknownGabapentin 800 mg TabletActive 800MGPOThree times dailyOctober 2021 11:00pmUnknownLisinopril 5 mg Tablet Vvmwncgxcyzk57ORHYWzbjnRvkgjjs 4th, 2022 11:00pmFebruary 2024 3:16pm Furosemide 20 mg AfrxjqCubqhk07VGWYVzszfVvkkhbq 4th, 2022 11:00pmUnknown Metoprolol Succinate 25 mg Tablet Extended Release 24 BaOqcdidgnutrt44TCEDZhyvw October 2021 11:00pmFebruary 2024 3:14pmInsulin Lispro 100 unit/mL Insulin FtxVrjwip21GUPHCAYQHPGobtp times dailyOctober 2021 11:00pmUnknown Ingleside-3 Fatty Acids (Fish Oil) CiltjnxWbvphfhsvgih1190ZTYMTgrmxTygxurx 2021 11:00pmMay 2023 3:38pmInsulin Glargine (Lantus Solostar U-100 Insulin) 100 unit/mL (3 mL) Insulin KnoOhkjwh02YZJTVXGTJRHlsyg morningOctober 2021 11:00pmUnknownOmeprazole 20 mg Tablet,Delayed Release (Dr/Ec)Gyhqayekhdmw65DXXG DailyOctober 2021 11:00pmFebruary 2024 3:17pmEmpagliflozin (Jardiance) 25 mg JtnvrwHnzhjs05ISEQGoygePkvaehe 2021 11:00pmUnknownAspirin 81 mg TqsburiDxmerx10NUVTHkycaQvcdvww 2021 11:00pmUnknownAlprazolam 1 mg tablet Rnhdsz9INCGJhlec times daily as needed for AnxietyFebruary 2024 3:12pm UnknownOmeprazole 20 mg tablet,delayed release (DR/EC)Jzspmz21YMIOIncycTbzoeiri 2024 3:15pmUnknownMetoprolol Succinate 50 mg tablet extended release 24 hr Klnhsn414JEQUlaqxsPcatpthy 2024 12:00amUnknownLisinopril 10 mg tabletActive 10MGPODailyFebruary 2024 12:00amUnknownAtorvastatin 20 mg cagzgnLbfpud74KB PODailyFebruary 2024 12:90vnLjhihyqEqwkaktbrzq-Wquktcpfx-Jebtgdkz (Trelegy Ellipta) 100-62.5-25 mcg blister with qixjdzKlsfgb2RREIRAVNJTGDOPtkwt639Xtxxbixj 2024 12:00amUnknown Procedures Procedure Date Performed Status XR clavicle LT* June 10, 2025 4:02pm comple ramses Relevant Diagnostic Tests and/or Laboratory Data Laboratory Results Test Collection Date/Time Result Date/Time Result Interpretation Reference Range Result Comment Performing Site Corrected White Blood Count June 10, 2025 4:25pm June 10, 2025 4:37pm 8.3 10*3/uL 4.1-10.5[facility] [id number] [address] [place] [address] 81648Lehzoaijqca WBC CountDece2024 4:25pmDeceer 2024 4:37pm8.3 10*3/uL4.1-10.5[facility] [id number] [address] [facility] [address]Nky Blood CountDecember 2024 4:25pmDecember 2024 4:37pm3.89 10*6/uLBelow low normal3.90-5.60[facility] [id number] [address] [facility] 74706UteyuyjfcgTihssjbc 2024 4:25pmDecember 2024 4:37pm 10.5 g/dLBelow low uropmw42.0-17.0[facility] [id number] [address] [facility] 10747HbzqzltednThvlbqry 2024 4:25pmDecember 2024 4:37pm 31.9 %Below low qxdeac30.8-50.0[facility] [id number] [address] [facility] 33972Eirt Corpuscular VolumeDecember 2024 4:25pmDecember 2024 4:37pm82.1 fLBelow low suxwey07.5-101[facility] [id number] [address] [facility] 628[address]Tany Corpuscular HemoglobinDecember 2024 4:25pmDecember 2024 4:37pm27.1 pgBelow low fdexfj11.5-35.2[facility] [id number] [address] [facility] 91929Ypkv Corpuscular Hemoglobin ConcentDecember 2024 4:25pm June 10, 2025 4:37pm33.0 g/dL32.5-35.6[facility] [id number] [address] [facility] [address]38[address]Xhh Cell Distribution WidthDecember 2024 4:25pmDecember 2024 4:37pm26.4 %Above high ekwvqm18.0-14.8[facility] [id number] [address] [facility] 84756Tseylfld CountDecember 2024 4:25pmDece2024 4:30uc647 10*3/mE417-167TwnihfagaSelect [facility] [id number] [address] [facility] 74311Zvrm Platelet VolumeJune 10, 2025 4:25pmJune 10, 2025 4:37pm8.6 fL6.6-10.1[facility] [id number] [address] [facility] [address]99[address]Sjodhlik Distribution WidthJune 10, 2025 4:25pmJune 10, 2025 5:20pm18.58 %0.00-20.00[facility] [id number] [address] [facility] [address]Gbmxxitzbst (%) (Auto)June 10, 2025 4:25pmDe2024 5:16pmN/[facility] [id number] [address] [facility] [address]26[address]Kuiihznkjno (%) (Auto)June 10, 2025 4:25pmDece2024 5:16pmN/[facility] [id number] [address] [facility] 38[address]Ompbpvfqo (%) (Auto)June 10, 2025 4:25pmDece2024 5:16pmN/[facility] [id number] [address] [facility] 61101Cweiyhejlus (%) (Auto)June 10, 2025 4:25pmDecemb2024 5:16pmN/[facility] [id number] [address] [facility] 18605Kvtblhisd (%) (Auto)June 10, 2025 4:25pmDecemb2024 5:16pmN/[facility] [id number] [address] [facility] 55246Pcircrfyj RBC Relative Count (auto)June 10, 2025 4:25pm June 10, 2025 5:16pmN/[facility] [id number] [address] [facility] 68913Wxuzudqmbmz # (Auto)June 10, 2025 4:25pmDecemb2024 5:16pmN/[facility] [id number] [address] [facility] 96047Dtcztzxsdhg # (Auto)June 10, 2025 4:25pmDecemb2024 5:16pmN/[facility] [id number] [address] [facility] 04664Vsmmwrtrn # (Auto)June 10, 2025 4:25pmDecemb2024 5:16pmN/[facility] [id number] [address] [facility] 40891Pfyqpuyjwxi # (Auto)June 10, 2025 4:25pmDecemb2024 5:16pmN/[facility] [id number] [address] [facility] 24840Xgycfnczx # (Auto)June 10, 2025 4:25pmDecember 2024 5:16pmN/[facility] [id number] [address] [facility] 89729Uyczdpgwm NeutrophilsJune 10, 2025 4:25pmDecemb2024 5:20pm77 %Above high -17YieelopaeSelect [facility] [id number] [address] [facility] 26791Hgzmwzolxpc %June 10, 2025 4:25pmDece2024 5:20pm 11 %Below low ysmjan48-33ZqsgabpnpSelect [facility] [id number] [address] [facility] 21874Jzoysnacs %June 10, 2025 4:25pmDece2024 5:20pm8 %2-11[facility] [id number] [address] [facility] 496[address]Vpbecokmccs %June 10, 2025 4:25pmDecemb2024 5:20pm 3 %1-3[facility] [id number] [address] [facility] 24789Xqptmfeyp %June 10, 2025 4:25pmDecember 2024 5:20pm1 %0-[facility] [id number] [address] [facility] 58769Tum Blood Cell MorphologyDecember 2024 4:25pmDecember 2024 5:20pmN/[facility] [id number] [address] [facility] 92057EzkftquvmpwwwPboowwgp 2024 4:25pmDecember 2024 5:20pm MarkedSelect [facility] [id number] [address] [facility] 90340IowoxfbmzvfagFnjawcsr 2024 4:25pmDecember 2024 5:20pm [facility] [id number] [address] [facility] 82112VqechfjgsetytfRdqohgko 2024 4:25pmDecember 2024 5:[facility]pmSM[facility] [id number] [address] [facility] 42945MyekfgkfzaekFezwsufn 2024 4:25pmDecember 2024 5:20pm [facility] [id number] [address] [facility] 74149ChvokixvkqmsPlwrjifw 2024 4:25pmDecember 2024 5:20pm [facility] [id number] [address] [facility] 76895Ipkboqar EstimateDeceer 2024 4:25pmDecember 2024 5:20pmNormalNormC[facility] [id number] [address] [facility] 96808Aoyqo PlateletsDecember 2024 4:25pmDecember 2024 5:20pm2 /100{WBC}[facility] [id number] [address] [facility] 25486Mqxvxexc Morphology CommentDeceer 2024 4:25pmDecember 2024 5:20pmNormalNormCrystal Clinic [facility] [id number] [address] [facility] 72320Fvxzydihgts TimeDecember 2024 4:25pmDecember 2024 5:03pm11.6 s9.0-12.9A hematocrit value greater than 55% may lead to inaccurate results in coagulation testing. Patientshaving hematocrit values >55% require a special collection tube for coagulation studies. Please contact the laboratory at [phone] for redraw instructions.[facility] [id number] [address] [facility] 43969Ktigzoidm Time International RatioDece2024 4:25pm June 10, 2025 5:03pm1.0INR Therapeutic Range A) Pre- and Peroperative OAT started two weeks before surgery. NOT HIP SURGERY: 1.5 - 2.5 HIP SURGERY: 2 - 3B) Primary and secondary prevention of venous THROMBOSIS: 2 - 3C) Active venous thrombosis, pulmonary embolismand prevention of recurrent venous thrombosis: 2 - 3D) Prevention of arterial thromboembolismincluding patients with mechanical heart valves: 3 - 4.5[facility] [id number] [address] [facility] 90586B-Xgyak Quantitative (PE/DVT)June 10, 2025 4:25pmDe2024 5:03pm< 200 ng/mL0-243The reference range for D-dimer is <243 ng/mL D- dimer units.D-dimer results must be used in conjunction with a clinicalpretest probability (PTP) assessment model for deep veinthrombosis (DVT) and pulmonary embolism (PE). Results <230ng/mL d-dimer units can be used as a negative predictor inpatients with low or moderate probability for DVT/PE.Results above the exclusion threshold of 230 ng/ml D-dimerunits for DVT/PE may indicate the need for furtherdiagnostic testing.D-Dimer can be increased in hospitalized patients due toco-morbid conditions.A hematocrit value greater than 55% may lead to inaccurate results in coagulation testing. Patients having hematocrit values >55% require a special collection tube for coagulation studies. Please contact the laboratory at [phone] for redraw instructions.[facility] [id number] [address] [facility] 83911Npwkdlh LevelDece2024 4:25pmDece2024 4:56pm 172 mg/dLAbove high loeslr51-447GLB recommended reference rangeRandom Glucose Reference Range is dependent on time and content of last meal. Glucose of more than 200 mg/dL in a nonstressed, ambulatory subject supports the diagnosisof Diabetes Mellitus.[facility] [id number] [address] [facility] 12092Ysirq Urea NitrogenDecember 2024 4:25pmDecember 2024 4:56pm10 mg/dL7-25[facility] [id number] [address] [facility] 84982KzfijbpehmSazvwbbp 2024 4:25pmDecember 2024 4:56pm 0.96 mg/dL0.70-1.30[facility] [id number] [address] [facility] 17972Hatusifce GFR (CKD-EPI)June 10, 2025 4:25pmDecemb2024 4:56pm> 60.0 mL/MinSelect [facility] [id number] [address] [facility] 47468Coigsl LevelDecember 2024 4:25pmDecember 2024 4:56pm 133 mmol/LBelow low dhotqm682-275LikjnrhskSelect [facility] [id number] [address] [place] 6031770Potassium LevelDeceer 2024 4:25pmDecember 2024 4:56pm3.8 mmol/L3.5-5.1[facility] [id number] [address] [facility] 91373Fgezswuh LevelDecember 2024 4:25pmDecember 2024 4:56pm98 mmol/C47-528TgxxcngfcSelect Medical Specialty [facility] [id number] [address] [facility] 69030Pkuhte Dioxide LevelDecember 2024 4:25pmDecember 2024 4:56pm26.2 mmol/L21.0-31.0[facility] [id number] [address] [facility] 95793Ebpyc GapDecember 2024 4:25pmDecember 2024 4:56pm12.6 mEq/L6.0-15.0[facility] [id number] [address] [place] 6031770Calcium LevelDecember 2024 4:25pmDecember 2024 4:56pm 9.5 mg/dL8.6-10.3[facility] [id number] [address] [place] [address] 95213Ctcukddv I High SensitivityDecember 2024 4:25pmDecember 2024 5:03pm4 ng/L0-20The Troponin units of report have been changed to meet the Chest Pain Accreditation requirement, element EC5.M1l2. Troponin units are changed from pg/ml to ng/L. Also, the decimal is removed and results are in whole numbers.[facility] [id number] [address] [facility] 92985J-Nlnc Natriuretic PeptideDece2024 4:25pmDecember 2024 5:02pm19.0 pg/mL5-100[facility] [id number] [address] [place] [address] 80309Udsjsmqt Creatinine Clearance (ChemDeceer 2024 4:25pm June 10, 2025 4:36nu219.79[facility] [id number] [address] [place] [address] Diagnostic Imaging Reports Author Joel Wallace [facility] HospitalReport Date/TimeDece2024 5:12pm [facility] Main [place] [address] [place] [address] XRay Report Signed Patient: Rachid Melchor MR#: [id number] : 1965 Acct:[id number] Age/Sex: 59 / M ADM Date: 5 Loc: ER Room: Type: [facility] ER Attending Dr: Copies to: Shira Moyer MD~ Ordering Provider: Shira Moyer MD Date of Service: 06/10/25 XR/XR clavicle LT*: Chest Pain LEFT CLAVICLE - 2 views CLINICAL HISTORY: Fall , pain COMPARISON: None FINDINGS: No fractures or dislocation.. Minimal spurring AC joint. Calcification involving the lateral aspecthumeral head possibly related to hydroxyapatite deposition. XR/XR clavicle LT* IMPRESSION: NEGATIVE FOR FRACTURE DEGENERATIVE CHANGES Impression dictated by: Joel Wallace M.D. 06/10/2025 5:12 PM Dictation Location: [place] [address] Transcribed By: KINJLA 06/10/251711 Dictated By: Joel Wallace MD 06/10/251710 Signed By: <Electronically signed by Joel Wallace MD in OV> 06/10/251711 Vital Signs Vital Reading Result Reference Range Collection Date/Time Height 71 [in_i] June 10, 2025 3:36seYoohoa459.39 kgDecember 2024 3:31pmBody Kfmmjcwjqjt10.9 [degF]97.6-99.0December 2024 3:31pmHeart Sxch568 /wyt79-944 June 10, 2025 4:22pmRespiratory rate21 /rmu20-11Wwwxrsrp 1st, 2025 4:22pm Oxygen saturation by Pulse tvfabzah65 %95-100June 10, 2025 4:22pmBP Tqzifuhh109 mm[Hg]100-140Decemb2024 4:22pmBP Lxmefqvgd26 mm[Hg]60-100 June 10, 2025 4:22pm Advance Directives Advance Directive Response Recorded Date/ Time Advance Directives No March 5:44pm Insurance Providers Guarantor Rachid Melchor Address [address] [facility] [address]Esow[employer] Info.Home Phone: Payer Group Member ID Coverage Type Subscriber Relationship to Subscriber Effective Date Expiration Date Daniel RICHMOND/ANNALISE [id number] R Holmes Id: [id number] [address] [facility] [address] Home Phone: Email: [email or web address] Campusedicaid Id: [id number] R Holmes Id: [id number] [address] [facility] [address] Home Phone: Email: [email or web address] Encounters Encounter Location(s) Arrival/Admit Date Discharge/Departure Date Discharge/Departure Disposition Provider(s) Departed Emergency -Emergency Room June 10, 2025 3:26pm June 10, 2025 5:29pm Discharged to home care or self care (routine discharge) Plan of Treatment Future Tests Future scheduled test information is unavailable Pending Tests Pending diagnostic test information is unavailable Future Visits Future appointment information is unavailable Future Procedures Future procedure information is unavailable Future Medications Future medication information is unavailable Patient Instructions Instruction Admit Date Shoulder pain - ED discharge instruction s June 10, 2025 3:26pm Hospital Discharge Instructions Additional Instructions Please return to emergency department for any new or worrisome symptoms including any numbness, weakness, tingling. Follow-up with your family physician within the next 3 to 5 days. You may have a injury to your rotator cuff that may need further evaluation outpatient.
--- OUTSIDE RECORDS SUMMARY | 2025-06-12 12:15 | XMS_ITS | Clinical Summary ---
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); Low libido; Encounter for dietary consultation; Class 1 obesity due to excess calories without serious comorbidity with body mass index (BMI) of 34.0 to 34.9 in adult04/08/2025amboo flowsheet [facility] [address] [place] [address] Kimmie Yarbrough MD from Last 3 Months [...] Last Filed Vital Signs Vital SignReadingTime TakenCommentsBlood Zvqmgayg864/7810 12:00 PM EDT Mwiqq308104/08/2025 2:02 PM EDTTemperature--Respiratory Hacu939604/08/2025 2:02 PM EDTOxygen Lpjgukczka40%04/08/2025 2:02 PM EDTInhaled Oxygen Concentration-- Qdatha094 kg (249 lb)04/08/2025 2:02 PM DMYNjqcrw128.3 cm (5' 11 )04/08/2025 2:02 PM EDTBody Mass Index34.7304/08/2025 2:02 PM EDT Plan of Treatment DateTypeDepartmentCare Team (Latest Contact Info)Ibdtwoukowt12/07/2026 2:[address] [facility] [address] [place] [address] Cinthia Magana PA [address] [place] [address] 08/05/2025 2:30 PM ESTOffice Visit [facility] [address] [place] [address] Kimmie Yarbrough MD [address] [place] [address] Health MaintenanceDue DateLast DoneCommentsCT Hflagqwmgedn73/03/1965Colonoscopy 1965Colorectal Cancer Vvjtmzxrc12/03/1965FIT-DNA1964FIT1965 FOBT1965 9404Pfwwapzjmmbgx58/03/1965COVID-19 Vaccine ( season) , 10/14/2020, 09/12/2020Influenza Vaccine (#1)2025 05/08/2024, 04/28/2022, 1Pneumococcal Vaccine: Pediatrics (0 to 5 Years) and At-Risk Patients (6 to 64 Years)Aged OutNo longer eligible based on patient's age to complete this topic Insurance Care Teams Team MemberRelationshipSpecialtyStart DateEnd Jignesh Muniz, GRANULATOR [address] [place] [address] PCP - GeneralFamily Medicine12/27/22
--- OUTSIDE RECORDS SUMMARY | 2025-06-12 12:15 | XMS_ITS | CCD ---
Author Organization Unknown Care Team Providers Care User Support Analyst Name Role Phone Unavailable Primary Care Provider Unavailabl e Unavailable Chronic Care Management Unavaila ble Summary Purpose DataExchange Insurance Providers Payer name Policy type / Coverage type Covered democrat ID Effective Begin Date Effective End Date [facility] [id number] Unknown Unknown Family History Family History data not found Medication Administered No Medication Administered data Reason For Visit No Reason For Visit data Medical Equipment No Medical Equipment data Advance Directives No Advance Directive data
--- OUTSIDE RECORDS SUMMARY | 2025-06-12 12:15 | XMS_ITS | Patient Health Record ---
Author Organization [facility] [place] Address [address] [place] [address] Care Team Providers Care Optical Glass Sawyer Name Role Phone None, Unknown or Primary Care Provider Unavailab Nayla Valles Unavailable [phone] Allergies No Known Allergies Results Component Value Reference Range Notes XR foot RT min 3V (Not yet r eviewed by provider) Interpretation: Performing Lab: Notes/Report: Source Facility: [place] [address] XRay Report Signed Patient: GEREMIAS MELCHOR MR#: [id number] : 1965 Acct:[id number] Age/Sex: 58 / M ADM Date: 08/15/24 Loc: RAD Attending Dr: Nayla Chadwick D.P.M. Ordering Physician: Nayla Chadwick D.P.M. Date of Service: 08/15/24 Procedure(s): XR foot RT min 3V Accession Number(s): [id number] cc: Nayla Chadwick D.P.M.; Physician,Non-Staff [facility] [place] [address] Patient Name: GEREMIAS MELCHOR MRN: [id number] date: 1965 Sex: M Assigned Patient Location: RAD Current Patient Location: Accession/Order Number: [id number] Exam Date: 08/15/2024 15:20 Report Date: 08/17/2024 [...] Signed By: 08/17/24 1135 DD/ 1133 TD/TT: Supply Analyst: CA segmental UE or [place] (N ot yet reviewed by provider) Interpretation: Performing Lab: Notes/Report: Source Facility: [place] [address] [place] [address] Cardiology Report Signed Patient: GEREMIAS MELCHOR MR#: [id number] : 1965 Acct:[id number] Age/Sex: 58 / M ADM Date: 10/31/24 Loc: CARD Attending Dr: Rachana GE Ordering Physician: Rachana Jean Date of Service: 10/31/24 Procedure(s): CA segmental UE or [place] Accession Number(s): [id number] cc: Rachana Jean; Physician,Non-Staff Zari [facility] Test Date: 2024-10-31 Pat Name: GEREMIAS MELCHOR Department: Room: - Gender: Male Padded Box Sewer: : 1965 Requested By: Rachana Jean Order Number: [id number] Kellie MD: RAH MORAN M.D. Interpretive Statements [...] MORAN Signed By: 10/31/24180110/31/241801 DD/ 24 TD/TT: Supply Analyst: XR ankle RT min 3V (Not yet reviewed by provider) Interpretation: Performing Lab: Notes/Report: Source Facility: [place] [address] XRay Report Signed Patient: GEREMIAS MELCHOR MR#: [id number] : 1965 Acct:[id number] Age/Sex: 58 / M ADM Date: 08/15/24 Loc: RAD Attending Dr: Nayla Chadwick D.P.M. Ordering Physician: Nayla Chadwick D.P.M. Date of Service: 08/15/24 Procedure(s): XR ankle RT min 3V Accession Number(s): [id number] cc: Nayla Chadwick D.P.M.; Physician,Non-Staff Z[facility] [place] [address] Patient Name: GEREMIAS MELCHOR MRN: [id number] date: 1965 Sex: M Assigned Patient Location: RAD Current Patient Location: Accession/Order Number: [id number] Exam Date: 08/15/2024 15:20 Report Date: 08/17/2024 [...] Signed By: 08/17/24 1135 DD/ 1133 TD/TT: Supply Analyst: Reason For Referral No Information Medications Medication SIG (Take, Route, Frequency, Duration) Notes Start Date End Date Status Jardiance ActiveMeloxicamActiveAspirinActiveSildenafil CitrateActiveGabapentinActive FluoxetineActiveLisinoprilActiveMetoprolol SuccinateActiveCholecalciferolActive Atorvastatin CalciumActiveOmeprazoleActiveInsulin LisproActiveThiamine HClActive Doxepin HClActiveALPRAZolamActiveLantusActiveCephalexin 500 MG1 capsule Orally tid; Duration: 14 days5Active Problems Problem Type SNOMED Code ICD Code Onset Dates Problem Status W/U Status Risk Notes Problem Foot ulcer due to ty pe 2 diabetes mellitus (3757415314839) Type 2 diabetes mellitus with foot ulcer (E11.621) ActiveconfirmedProblemAnkle ulcer (875056738)Non-pressure chronic ulcer of right ankle with fat layer exposed (L97.312)ActiveconfirmedProblemNon-pressure chronic ulcer of left heel and midfoot limited to breakdown of skin (L97.421)Active confirmedProblemChronic ulcer of foot (943781646)Non-pressure chronic ulcer of left heel and midfoot with fat layer exposed (L97.422)ActiveconfirmedProblem Chronic ulcer of foot (262059918)Non-pressure chronic ulcer of other part of left foot with fat layer exposed (L97.522)ActiveconfirmedProblemArthropathy associated with a neurological disorder (36931512)Charcot's joint, right ankle and foot (M14.671)ActiveconfirmedProblemArthralgia of the ankle and/or foot (453448046)Pain in right ankle and joints of right foot (M25.571)Activeconfirmed ProblemHypertension (81077017)Hypertension (I10)ActiveconfirmedProblemDiabetes mellitus type 2 (disorder) (19403213)DM2 (diabetes mellitus, type 2) (E11.9) ActiveconfirmedProblemChronic ulcer of foot (228549970)Non-pressure chronic ulcer of right heel and midfoot with fat layer exposed (L97.412)Activeconfirmed ProblemFoot ulcer due to type 2 diabetes mellitus (5463844421138)Diabetes mellitus with foot ulcer due to multiple causes (E11.621)ActiveconfirmedProblem Acquired equinus deformity of foot (30234998)Acquired equinus deformity of foot (M21.6X9)ActiveconfirmedProblemChronic osteomyelitis of right foot (4787138004163788)Chronic osteomyelitis of right foot (M86.671)Activeconfirmed ProblemPolyneuropathy due to type 2 diabetes mellitus (447796151)Diabetes mellitus with diabetic polyneuropathy (E11.42)ActiveconfirmedProblemAnkle ulcer (161421141)Non-healing ulcer of ankle, right, with fat layer exposed (L97.312) ActiveconfirmedProblemAlcohol withdrawal syndrome (038383706)Alcohol withdrawal syndrome (F10.239)ActiveconfirmedProblemHigh cholesterol (04440779)High cholesterol (E78.00)ActiveconfirmedProblemPresence of functional implant (Z96.9) ActiveconfirmedProblemAnkle ulcer (615751048)Non-pressure chronic ulcer of ankle, right, limited to breakdown of skin (L97.311)ActiveconfirmedProblem Localized, primary osteoarthritis of the ankle and/or foot (945027182) Osteoarthritis of ankle and foot, right (M19.071)ActiveconfirmedProblemDiabetic neuropathic arthropathy (766983184)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)ActiveconfirmedProblemChronic osteomyelitis of ankle and/or foot (004904851)Chronic osteomyelitis of right foot with draining sinus (M86.471)ActiveconfirmedProblemNon-pressure chronic ulcer of right heel and midfoot with muscle involvement without evidence of necrosis (L97.415)Active confirmedProblemNon-pressure chronic ulcer of left heel and midfoot with bone involvement without evidence of necrosis (L97.426)ActiveconfirmedProblem Arthropathy associated with a neurological disorder (46967402)Charcot''s joint of right ankle (M14.671)ActiveconfirmedProblemAnkle ulcer (257221996)Ischemic ulcer of right ankle with fat layer exposed (L97.312)ActiveconfirmedProblemAnkle ulcer (280780199)Chronic ulcer of right ankle with fat layer exposed (L97.312) ActiveconfirmedProblemArthritis of right subtalar joint (01163879531907510) 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)ActiveconfirmedProblemChronic ulcer of plantar surface of right midfoot with fat layer exposed (L97.412)Active confirmedProblemAnkle ulcer (512224885)Non-healing ulcer of right ankle with fat layer exposed (L97.312)ActiveconfirmedProblemPlantarflexion deformity of right foot (finding) (9177212417426627)Equinus deformity of right foot (M21.6X1)Active confirmed Encounters Encounter Location Date Provider Diagnosis [facility] ([facility]) [address] [place] [address] [place] [address] 08/15/2024 Peter Netta Charcot's joint, right ankle and foot M14.671 ; Non-pressure chronic ulcer of other part of left foot with fat layer exposed L97.522 ; Cellulitis of left lower limb L03.116 and Pain in right ankle and joints of right foot M25.571 [facility] ([facility]) [address] [place], [place] [address] [address] 08/15/2024 Nayla Chadwick Assessments Encounter Date Diagnosis [...] I did discuss potential utilization of a [place] boot which he adamantly declined. Although there [...] will follow-up next week in the wound qzhcxi5008/15/2024ellulitis of left lower limb (ICD-10 - L03.116)08/15/2024Pain [...] Insured Coverage Start Date Coverage End Date [employer] SAM[employer]IE[employer]V [employer] MEDICARE [address] [place] [address] [id number] [id number] Self - patient is the insured 1 MEDICAID [place] [address] [facility] [address] [place], [place] [id number] [phone], [employer] - patient is the insured Medical (General) History Medical History History ICD Code diabetic neuropathy Surgical History Surgery Date(Month/Year) left ankle fusion left foot recon 023 removal of hardware 06/27/2023
--- OUTSIDE RECORDS SUMMARY | 2025-06-12 12:15 | XMS_ITS | Clinical Summary ---
Author Organization [facility] Address [address] [place] [address] Care Team Providers Care News Videotape Editor Name Role Phone Manfred Nuñez MD Primary Care Provider + Allergies No known active allergies Medications MedicationSigDispense QuantityRefillsLast FilledStart DateEnd DateStatus ALPRAZolam (XANAX) 1 MG tablet Take 1 mg by mouth 2 (two) times a day as needed for anxiety. 2 tabs (2mg) qAM, 1 tab qPMActive nebivolol (BYSTOLIC) 10 MG tablet Take 10 mg by mouth daily.Active Active Problems ProblemNoted DateDiagnosed OpcpXxfhqgkgtilq67/21/2015 Assessment & Plan (11/29/2014 11:42 AM EDT): Recent diagnosis, started bystolic 4-5 days prior to admission -continue bystolic. Follow up with primary care in 1 week. Byemmjv2211/28/2014 Assessment & Plan (11/29/2014 11:43 AM EDT): Chronic. 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 Resolved Problems ProblemNoted DateDiagnosed DateResolved DateDVT ppvupovdtaa37 Family History Medical HistoryRelationCommentsHearing lossMaternal GrandfatherDiabetesPaternal UncleRelationStatusCommentsMaternal GrandfatherPaternal Uncle Social History Tobacco UseTypesPacks/DayYears UsedDateSmoking Tobacco: Every UhoBbhacsmrhd497 Tobacco Cessation:Ready to Q uit: No Alcohol UseStandard Drinks/WeekCommentsYes0 (1 standard drink = 0.6 oz pure alcohol)daily: 2-3 rums per daySex and Gender InformationValueDate RecordedSex Assigned at BirthNot on fileLegal ZztGiiq9811/28/2013 1:53 PM EDTGender Identity Not on fileSexual OrientationNot on file Last Filed Vital Signs Vital SignReadingTime TakenCommentsBlood Yyoktjzb750/8311/29/2014 11:26 AM EDT Fiaen033711/29/2014 11:26 AM CYBIbhaeswxgpl85.4 ??C (97.6 ??F)11/29/2014 11:26 AM EDTRespiratory Tiex171111/29/2014 11:26 AM EDTOxygen Lvkilyfvjj05%11/29/2014 11:26 AM EDTInhaled Oxygen Concentration--Tcttqb474 kg (242 lb 8.1 oz)11/28/2014 1:05 PM CLJYyvrzr668.9 cm (6')11/28/2014 1:05 PM EDTBody Mass Index32.8911/28/2014 1:05 PM EDT Plan of Treatment Not on file Insurance Advance Directives For more information, please contact: [phone] * Full Code (Latest Code Status on File) Date ActivatedDate InactivatedComments11/28/2014 7:59 PM11/29/2014 2:53 PM Care Teams Team MemberRelationshipSpecialtyStart DateEnd Date Manfred Nuñez MD [address] [place] [address] PCP - GeneralFamily Medicine11/28/14
--- OUTSIDE RECORDS SUMMARY | 2025-06-12 12:24 | XMS_ITS | CCD ---
Author Organization [facility] Inform ion Partnership [facility] Care Team Providers Care Senior Financial Reporting Analyst Name Role Phone LENKA ROQUE Attending [...] Physician Unavailab Ericka David Primary Care Provider [phone] Edilberto Zamora Primary Care Physician Edilberto Pendleton Primary Care Physician Ericka Dotson Primary Care Physician UnavailEricka Encarnacion Primary Care Provider [phone] Ericka Muniz Primary Care Physician Unavailab TARIK Pro Referring Unavailable ERICKA MUNIZ Primary Care Unavailable TESS ESCALONA Referring Unavailable ERICKA MUNIZ Primary Care Unavailable TESS ESCALOAN Referring Unavailable ERICKA MUNIZ Primary Care Unavailable [...] Ericka Shah Primary Care Physician Unavailab solomon [facility], Franky P Primary Care Physician Unavai lable Dyana, Franky P Primary Care Physician Unavai lable Dyana, Franky P Primary Care Physician Unavai labsolomon Zamora, Edilberto L Primary Care Physician Unavai labsolomon Zamora, Edilberto L Primary Care Physician Unavai corinne Muniz, Ericka Shah Primary Care Physician Unavailab solomon Dyana, Franky P Primary Care Physician Unavai lable [facility], Franky P Primary Care Physician Unavai lable [facility], Franky Yu Primary Care Physician Unavai lable NON STAFF Primary Care Provider UnavailSOLE Short Emergency Provider [phone] RADHA Novak Attending Provider [phone] [facility], CHERYL Yu Attending Provider NON STAFF Primary Care Provider UnavailSOLE Short Emergency Provider [facility], CHERYL Yu Attending Provider RADHA Novak Attending Provider [phone] [facility] RADHA Novak Attending Provider Edilberto [...] Flavio WHEELER, Jignesh Ontiveros Primary Care Provider [phone] Ericka Muniz Primary Care Physician Unavailab Ericka David Primary Care Physician Unavailab RADHA Ayers Emergency Provider [phone] MD Ericka Muniz Primary Care Provider [phone] [place], [employer]- Missy Galan Emergency Provider Ericka Muniz Primary Care Physician Unavailab Cinthia Kaba Primary Care Physician Unavailcameron Muniz MD, Ericka Shah Primary Care Provider [phone] Todd BISWAS-C, Ayanna Gutiérrez Attending Provider Ericka [...] sources)Platelet Aggregation Inhibitor, Nonsteroidal Anti-inflammatory Drug Start: 18-37-8451fnat 1 capsule by mouth once dailyAspirin 81 mg Capsule Active 81 MG PO Daily April 13, 2022 11:00pmASPIRIN 81 PO ActiveASPIRIN 81 PO Aspirin 81 Activetake 1 tablet by mouth once dailytake 1 tablet (81 mg) by oral route once dailyASPIRIN 81 PO Aspirin 81 0 Activeatorvastatin 20 mg oral tablet (20 sources)HMG-CoA Reductase InhibitorStart: 78-60-6708teci 1 tablet by mouth once dailyatorvastatin (Lipitor) 20 MG tablet Take 20 mg by mouth Daily 03/13/2025 ActiveStart: 17-30-5782lpcg 1 tablet by mouth once dailytake 1 tablet (20 mg) by oral route once dailyStart: 64-63-3909vpwn 1 tablet by mouth once dailytake 1 tablet (20 mg) by oral route once dailyStart: 46-33-9802qokh 1 tablet by mouth once dailyAtorvastatin 20 mg tablet Active 20 MG PO Daily August 14, 2024 12:00amStart: 87-09-9838rnuo 1 tablet by mouth once dailytake 1 tablet (20 mg) by oral route once dailyStart: 04-14-2022 End: 15-95-3918fwyr 2 tablets by mouth once daily at bedtimeAtorvastatin 10 mg Tablet Discontinued 20 MG PO Daily at bedtime April 13, 2022 11:00pm August 14, 2024 3:16pmStart: 74-87-9223tgli 20 mg by mouth once daily at bedtime Atorvastatin Active 20 MG PO Daily at bedtime April 14, 2022 12:00amStart: 88-54-7050jula 10 mg by mouth once daily at bedtimeAtorvastatin Active 10 MG PO Daily at bedtime April 14, 2022 12:00amStart: 60-64-4850feuq 1 tablet by mouth once daily at bedtimeatorvastatin 10 mg oral tablet 09/03/2021 TAKE ONE TABLET BY MOUTH ONCE DAILY AT BEDTIMEStart: 52-03-4093wqsc 1 tablet by mouth once daily at bedtimeatorvastatin 10 mg oral tablet 04/23/2020 TAKE ONE TABLET BY MOUTH ONCE DAILY AT BEDTIMEStart: 69-60-4560cwhk 1 tablet by mouth once daily at bedtimeatorvastatin 10 mg oral tablet 08/30/2018 TAKE ONE TABLET BY MOUTH ONCE DAILY AT BEDTIMEStart: 06-03-2015 End: 90-57-2734yxce 1 tablet by mouth once daily at bedtimetake 1 tablet (10 mg) by oral route once daily at bedtimecalcium chloride 0.0014 meq/ml / potassium chloride 0.004 meq/ml / sodium chloride 0.103 meq/ml / sodium lactate 0.028 meq/ml injectable solution (1 source)Start: 12-51-1611syvhaqwk ringers infusion2 ml fentaNYL 0.05 mg/ml injection (2 sources)Opioid AgonistStart: 84-98-1140etklnXBG (SUBLIMAZE) injection 50 mcg Start: 06-91-5820byoqoXJX (SUBLIMAZE) injection 25 mcg30 actuat fluticasone furoate 0.1 mg/actuat / umeclidinium 0.0625 mg/actuat / vilanterol 0.025 mg/ac tuat dry powder inhaler (3 sources)Anticholinergic, Corticosteroid, beta2-Adrenergic AgonistStart: 19-88-5962ehau 1 puff(s) by inhalation once dailyTrelegy Ellipta 100-62.5-25 MCG/ACT aerosol powder INHALE 1 PUFF ONCE DAILY 11/12/2024 ActiveStart: 67-85-4308Uowbcvxvfvp-Umeclidin-Vilanter (Trelegy Ellipta) 100-62.5-25 mcg blister with device Active 1 INH INHALATION Daily 60 August 14, 2024 12:00am gabapentin 800 mg oral tablet (20 sources)Anti-epileptic AgentStart: 11-30-2024 End: 03-81-5223zkku 1 tablet by mouth three times dailyTAKE 1 TABLET BY MOUTH THREE TIMES DAILYStart: 11-30-2021 End: 33-07-1233ibqz 1 tablet by mouth three times dailyGabapentin 800 mg Tablet Active 800 MG PO Three times daily April 13, 2022 11:00pmStart: 08-24-2021 End: 35-08-2295driv 1 tablet by mouth three times dailygabapentin 800 mg tablet 08/24/2021 09/23/2021 TAKE 1 TABLET BY MOUTH THREE TIMES DAILYStart: 08-11-2020 End: 52-92-4217hexv 1 tablet by mouth three times dailygabapentin 800 mg oral tablet 12/23/2020 06/21/2021 TAKE 1 TABLET BY MOUTH THREE TIMES DAILYStart: 07-07-2020 End: 36-62-4731iebv 1 tablet by mouth three times dailygabapentin 800 mg oral tablet 07/07/2020 08/06/2020 TAKE 1 TABLET BY MOUTH THREE TIMES DAILYStart: 05-15-2020 End: 40-19-5406nxpn 1 tablet by mouth three times dailygabapentin 800 mg oral tablet 05/15/2020 06/14/2020 TAKE 1 TABLET BY MOUTH THREE TIMES DAILYStart: 59-35-0912ybzo 1 tablet by mouth three times dailygabapentin 800 mg oral tablet 08/13/2019 TAKE 1 TABLET BY MOUTH THREE TIMES DAILYStart: 06-03-2017 End: 03-36-3471zwcy 1 tablet by mouth three times dailyTAKE ONE TABLET BY MOUTH THREE TIMES DAILYStart: 06-03-2017 End: 39-03-5513vicc 1 tablet by mouth three times dailyTAKE ONE TABLET BY MOUTH THREE TIMES DAILYStart: 06-03-2017 End: 80-67-1079ndzi 1 tablet by mouth three times dailyTAKE ONE TABLET BY MOUTH THREE TIMES DAILYStart: 06-03-2017 End: 12-36-4473oxua 1 tablet by mouth three times dailyTAKE ONE TABLET BY MOUTH THREE TIMES DAILYStart: 06-03-2017 End: 56-96-4372yjpd 1 tablet by mouth three times dailyTAKE ONE TABLET BY MOUTH THREE TIMES DAILYStart: 06-03-2017 End: 52-56-5338gehy 1 tablet by mouth three times dailyTAKE ONE TABLET BY MOUTH THREE TIMES DAILYStart: 06-03-2017 End: 78-46-7569xdih 1 tablet by mouth three times dailyTAKE ONE TABLET BY MOUTH THREE TIMES DAILYStart: 06-03-2017 End: 07-17-8831ayfo 1 tablet by mouth three times dailyTAKE ONE TABLET BY MOUTH THREE TIMES DAILYStart: 06-03-2017 End: 90-43-1455ghii 1 tablet by mouth three times dailyTAKE ONE TABLET BY MOUTH THREE TIMES DAILYStart: 06-03-2017 End: 47-60-8371zbcs 1 tablet by mouth three times dailygabapentin 600 mg oral tablet 06/03/2017 06/03/2017 TAKE ONE TABLET BY MOUTH THREE TIMES DAILYStart: 06-03-2017 End: 32-54-8143wtkp 1 tablet by mouth three times dailygabapentin 600 mg oral tablet 06/03/2017 06/03/2017 TAKE ONE TABLET BY MOUTH THREE TIMES DAILYStart: 06-03-2017 End: 61-16-4046adql 1 tablet by mouth three times dailygabapentin 600 mg oral tablet 06/03/2017 06/03/2017 TAKE ONE TABLET BY MOUTH THREE TIMES DAILYStart: 06-03-2017 End: 02-11-7784sbyb 1 tablet by mouth three times dailygabapentin 600 mg oral tablet 06/03/2017 06/03/2017 TAKE ONE TABLET BY MOUTH THREE TIMES DAILYStart: 06-03-2017 End: 38-86-9692uzgj 1 tablet by mouth three times dailygabapentin 600 mg oral tablet 06/03/2017 06/03/2017 TAKE ONE TABLET BY MOUTH THREE TIMES DAILYStart: 06-03-2017 End: 15-69-8038yjov 1 tablet by mouth three times dailygabapentin 600 mg oral tablet 06/03/2017 06/03/2017 TAKE ONE TABLET BY MOUTH THREE TIMES DAILYStart: 06-03-2017 End: 41-68-6445rruw 1 tablet by mouth three times dailygabapentin 600 mg oral tablet 06/03/2017 06/03/2017 TAKE ONE TABLET BY MOUTH THREE TIMES DAILYStart: 06-03-2017 End: 64-43-3735sfjf 1 tablet by mouth three times dailygabapentin 600 mg oral tablet 06/03/2017 06/03/2017 TAKE ONE TABLET BY MOUTH THREE TIMES DAILYStart: 06-03-2017 End: 85-84-1645nvnh 1 tablet by mouth three times dailygabapentin 600 mg oral tablet 06/03/2017 06/03/2017 TAKE ONE TABLET BY MOUTH THREE TIMES DAILYStart: 06-03-2017 End: 46-55-3182wpuz 1 tablet by mouth three times dailygabapentin 600 mg oral tablet 06/03/2017 06/03/2017 TAKE ONE TABLET BY MOUTH THREE TIMES DAILYStart: 06-03-2017 End: 77-88-5814yamb 1 tablet by mouth three times dailygabapentin 600 mg oral tablet 06/03/2017 06/03/2017 TAKE ONE TABLET BY MOUTH THREE TIMES DAILYStart: 06-03-2017 End: 32-39-1870bvtj 1 tablet by mouth three times dailygabapentin 600 mg oral tablet 06/03/2017 06/03/2017 TAKE ONE TABLET BY MOUTH THREE TIMES DAILYStart: 06-03-2017 End: 68-26-2312pvae 1 tablet by mouth three times dailygabapentin 600 mg oral tablet 06/03/2017 06/03/2017 TAKE ONE TABLET BY MOUTH THREE TIMES DAILYStart: 06-03-2017 End: 14-22-1105iddt 1 tablet by mouth three times dailygabapentin 600 mg oral tablet 06/03/2017 06/03/2017 TAKE ONE TABLET BY MOUTH THREE TIMES DAILYStart: 06-03-2017 End: 07-39-7454cxrl 1 tablet by mouth three times dailygabapentin 600 mg oral tablet 06/03/2017 06/03/2017 TAKE ONE TABLET BY MOUTH THREE TIMES DAILYStart: 06-03-2017 End: 93-91-7972ojej 1 tablet by mouth three times dailygabapentin 600 mg oral tablet 06/03/2017 06/03/2017 TAKE ONE TABLET BY MOUTH THREE TIMES DAILYStart: 06-03-2017 End: 81-91-8464etay 1 tablet by mouth three times dailygabapentin 600 mg oral tablet 06/03/2017 06/03/2017 TAKE ONE TABLET BY MOUTH THREE TIMES DAILYStart: 06-03-2017 End: 13-15-7275ftzf 1 tablet by mouth three times dailygabapentin 600 mg oral tablet 06/03/2017 06/03/2017 TAKE ONE TABLET BY MOUTH THREE TIMES DAILYStart: 06-03-2017 End: 53-11-6369qgba 1 tablet by mouth three times dailygabapentin 600 mg oral tablet 06/03/2017 06/03/2017 TAKE ONE TABLET BY MOUTH THREE TIMES DAILYStart: 06-03-2017 End: 23-35-4698kemu 1 tablet by mouth three times dailygabapentin 600 mg oral tablet 06/03/2017 06/03/2017 TAKE ONE TABLET BY MOUTH THREE TIMES DAILYStart: 06-03-2017 End: 23-94-6797rkid 1 tablet by mouth three times dailygabapentin 600 mg oral tablet 06/03/2017 06/03/2017 TAKE ONE TABLET BY MOUTH THREE TIMES DAILYStart: 06-03-2017 End: 21-31-6825zkvc 1 tablet by mouth three times dailygabapentin 600 mg oral tablet 06/03/2017 06/03/2017 TAKE ONE TABLET BY MOUTH THREE TIMES DAILYStart: 06-03-2017 End: 06-05-7007cfiz 1 tablet by mouth three times dailygabapentin 600 mg oral tablet 06/03/2017 06/03/2017 TAKE ONE TABLET BY MOUTH THREE TIMES DAILYStart: 06-03-2017 End: 06-51-9762hszo 1 tablet by mouth three times dailygabapentin 600 mg oral tablet 06/03/2017 06/03/2017 TAKE ONE TABLET BY MOUTH THREE TIMES DAILYStart: 06-03-2017 End: 78-71-5029eagl 1 tablet by mouth three times dailygabapentin 600 mg oral tablet 06/03/2017 06/03/2017 TAKE ONE TABLET BY MOUTH THREE TIMES DAILYStart: 06-03-2017 End: 79-19-3759ujsb 1 tablet by mouth three times dailygabapentin 600 mg oral tablet 06/03/2017 06/03/2017 TAKE ONE TABLET BY MOUTH THREE TIMES DAILYStart: 06-03-2017 End: 79-68-7506aoig 1 tablet by mouth three times dailygabapentin 600 mg oral tablet 06/03/2017 06/03/2017 TAKE ONE TABLET BY MOUTH THREE TIMES DAILYStart: 06-03-2017 End: 23-74-0895rhvm 1 tablet by mouth three times dailygabapentin 600 mg oral tablet 06/03/2017 06/03/2017 TAKE ONE TABLET BY MOUTH THREE TIMES DAILYStart: 06-03-2017 End: 63-85-4360ltdw 1 tablet by mouth three times dailygabapentin 600 mg oral tablet 06/03/2017 06/03/2017 TAKE ONE TABLET BY MOUTH THREE TIMES DAILYStart: 06-03-2017 End: 58-92-9047imuf 1 tablet by mouth three times dailygabapentin 600 mg oral tablet 06/03/2017 06/03/2017 TAKE ONE TABLET BY MOUTH THREE TIMES DAILYStart: 06-03-2017 End: 52-57-8591kavf 1 tablet by mouth three times dailygabapentin 600 mg oral tablet 06/03/2017 06/03/2017 TAKE ONE TABLET BY MOUTH THREE TIMES DAILYStart: 06-03-2017 End: 94-77-8956pdvd 1 tablet by mouth three times dailygabapentin 600 mg oral tablet 06/03/2017 06/03/2017 TAKE ONE TABLET BY MOUTH THREE TIMES DAILYStart: 06-03-2017 End: 93-93-9725wblb 1 tablet by mouth three times dailygabapentin 600 mg oral tablet 06/03/2017 06/03/2017 TAKE ONE TABLET BY MOUTH THREE TIMES DAILYStart: 06-03-2017 End: 46-25-5912eyoz 1 tablet by mouth three times dailygabapentin 600 mg oral tablet 06/03/2017 06/03/2017 TAKE ONE TABLET BY MOUTH THREE TIMES DAILYStart: 06-03-2017 End: 16-57-8965fucq 1 tablet by mouth three times dailygabapentin 600 mg oral tablet 06/03/2017 06/03/2017 TAKE ONE TABLET BY MOUTH THREE TIMES DAILYStart: 06-03-2017 End: 55-89-5400rawe 1 tablet by mouth three times dailygabapentin 600 mg oral tablet 06/03/2017 06/03/2017 TAKE ONE TABLET BY MOUTH THREE TIMES DAILYStart: 06-03-2017 End: 34-24-1881rmkl 1 tablet by mouth three times dailygabapentin 600 mg oral tablet 06/03/2017 06/03/2017 TAKE ONE TABLET BY MOUTH THREE TIMES DAILYStart: 06-03-2017 End: 57-06-5163rcmo 1 tablet by mouth three times dailygabapentin 600 mg oral tablet 06/03/2017 06/03/2017 TAKE ONE TABLET BY MOUTH THREE TIMES DAILYStart: 06-03-2017 End: 72-63-7406uizb 1 tablet by mouth three times dailygabapentin 600 mg oral tablet 06/03/2017 06/03/2017 TAKE ONE TABLET BY MOUTH THREE TIMES DAILYStart: 06-03-2017 End: 66-73-3046ecmt 1 tablet by mouth three times dailygabapentin 600 mg oral tablet 06/03/2017 06/03/2017 TAKE ONE TABLET BY MOUTH THREE TIMES DAILYStart: 06-03-2017 End: 83-44-0931kewp 1 tablet by mouth three times dailygabapentin 600 mg oral tablet 06/03/2017 06/03/2017 TAKE ONE TABLET BY MOUTH THREE TIMES DAILYStart: 06-03-2017 End: 38-27-8563kprw 1 tablet by mouth three times dailygabapentin 600 mg oral tablet 06/03/2017 06/03/2017 TAKE ONE TABLET BY MOUTH THREE TIMES DAILYStart: 06-03-2017 End: 82-06-7206xgnl 1 tablet by mouth three times dailygabapentin 600 mg oral tablet 06/03/2017 06/03/2017 TAKE ONE TABLET BY MOUTH THREE TIMES DAILYStart: 06-03-2017 End: 43-43-3518hyjr 1 tablet by mouth three times dailygabapentin 600 mg oral tablet 06/03/2017 06/03/2017 TAKE ONE TABLET BY MOUTH THREE TIMES DAILYStart: 06-03-2017 End: 67-56-6253wepz 1 tablet by mouth three times dailygabapentin 600 mg oral tablet 06/03/2017 06/03/2017 TAKE ONE TABLET BY MOUTH THREE TIMES DAILYStart: 06-03-2017 End: 18-39-9895gbem 1 tablet by mouth three times dailygabapentin 600 mg oral tablet 06/03/2017 06/03/2017 TAKE ONE TABLET BY MOUTH THREE TIMES DAILYStart: 06-03-2017 End: 25-61-4579rqon 1 tablet by mouth three times dailygabapentin 600 mg oral tablet 06/03/2017 06/03/2017 TAKE ONE TABLET BY MOUTH THREE TIMES DAILYStart: 06-03-2017 End: 08-90-2994sqnz 1 tablet by mouth three times dailygabapentin 600 mg oral tablet 06/03/2017 06/03/2017 TAKE ONE TABLET BY MOUTH THREE TIMES DAILYStart: 06-03-2017 End: 13-77-3692tmso 1 tablet by mouth three times dailygabapentin 600 mg oral tablet 06/03/2017 06/03/2017 TAKE ONE TABLET BY MOUTH THREE TIMES DAILYStart: 06-03-2017 End: 86-09-4687svlo 1 tablet by mouth three times dailygabapentin 600 mg oral tablet 06/03/2017 06/03/2017 TAKE ONE TABLET BY MOUTH THREE TIMES DAILYStart: 06-03-2017 End: 46-66-0879fukj 1 tablet by mouth three times dailygabapentin 600 mg oral tablet 06/03/2017 06/03/2017 TAKE ONE TABLET BY MOUTH THREE TIMES DAILYStart: 06-03-2017 End: 45-23-3045fzxz 1 tablet by mouth three times dailygabapentin 600 mg oral tablet 06/03/2017 06/03/2017 TAKE ONE TABLET BY MOUTH THREE TIMES DAILYStart: 06-03-2017 End: 93-21-5187wxgd 1 tablet by mouth three times dailygabapentin 600 mg oral tablet 06/03/2017 06/03/2017 TAKE ONE TABLET BY MOUTH THREE TIMES DAILYStart: 03-18-2016 End: 62-44-3438xbnn 1 tablet by mouth three times dailytake 1 tablet (600 mg) by oral route 3 times per daygabapentin (Neurontin) 800 MG tablet every 8 (eight) hours ActiveInsulin Lispro (1 Unit Dial) 100 UNIT/ML Subcutaneous Solution Pen-injector (20 sources)Start: 04-05-2022 End: 66-99-3200Nvpkqzn Lispro (1 Unit Dial) 100 UNIT/ML Subcutaneous Solution Pen-injector 04/05/2022 09/27/2022 INJECT 12 UNITS SUBCUTANEOUSLY WITH MEALS. PRIME WITH 2 UNITS EACH USEStart: 11-24-2021 End: 55-14-0854Flpfucv Lispro (1 Unit Dial) 100 UNIT/ML Subcutaneous Solution Pen-injector 11/24/2021 04/13/2022 INJECT 12 UNITS SUBCUTANEOUSLY WITH MEALS. PRIME WITH 2 UNITS EACH USEInsulin Lispro 100 unit/mL Insulin Pen (2 sources)Start: 73-80-2055crlmzh 12 [IU] by subcutaneous injection three times dailyInsulin Lispro 100 unit/mL Insulin Pen Active 12 UNIT SUBCUT Three times daily April 13, 2022 11:00pm4 ml labetalol hydrochloride 5 mg/ml cartridge (1 source)beta-Adrenergic BlockerStart: 95-40-7061sctncyvkv (NORMODYNE;TRANDATE) injection 5 mgammonium lactate 120 mg/ml topical cream (4 sources)Start: 42-49-0460qlphtmkx lactate (Amlactin) 12 % cream 1 application every 12 (twelve) hours. 05/25/2022 Activelisinopril 10 mg oral tablet (20 sources)Angiotensin Converting Enzyme InhibitorStart: 80-74-4724mpsc 1 tablet by mouth once dailylisinopril 10 MG tablet Take 10 mg by mouth Daily 02/04/2025 ActiveStart: 28-76-2024eouh 1 tablet by mouth once dailyLisinopril 10 mg tablet Active 10 MG PO Daily August 14, 2024 12:00amStart: 50-70-1164pcbl 5 mg by mouth once dailyLisinopril Active 5 MG PO Daily April 13, 2022 11:00pmStart: 04-14-2022 End: 74-01-4993cpsx 2 tablets by mouth once dailyLisinopril 5 mg Tablet Discontinued 10 MG PO Daily April 13, 2022 11:00pm August 14, 2024 3:16pm Start: 39-87-6125hmms 10 mg by mouth once dailyLisinopril Active 10 MG PO Daily April 14, 2022 12:00amStart: 08-30-2018 End: 16-05-8673zhnd 1 tablet by mouth once dailytake 1 tablet (10 mg) by oral route once daily for 90 daysStart: 06-03-2015 End: 71-76-5326hmdr 1 tablet by mouth once dailytake 1 tablet (10 mg) by oral route once dailymetFORMIN hydrochloride 500 mg oral tablet (20 sources)BiguanideStart: 11-26-2024 End: 25-39-4646eewp 1 tablet by mouth three times dailyTAKE 1 TABLET BY MOUTH THREE TIMES DAILYStart: 04-14-2022 End: 78-31-7734ziwp 1 tablet by mouth three times dailyMetformin 500 mg Tablet Active 500 MG PO Three times daily April 13, 2022 11:00pmStart: 09-03-2021 take 1 tablet by mouth three times dailymetformin 500 mg oral tablet 09/03/2021 TAKE ONE TABLET BY MOUTH THREE TIMES DAILYStart: 09-08-2020 End: 31-38-5300grkh 1 tablet by mouth three times dailymetformin 500 mg oral tablet 09/08/2020 TAKE ONE TABLET BY MOUTH THREE TIMES DAILYStart: 25-93-2153wsfa 1 tablet by mouth three times dailymetformin 500 mg oral tablet 06/11/2019 TAKE ONE TABLET BY MOUTH THREE TIMES DAILYStart: 08-26-2015 End: 77-25-2845gkuw 1 tablet by mouth twice daily at dinnertake 1 tablet (500 mg) by oral route 2 times per day with morning and evening mealsmetFORMIN (Glucophage) 500 MG tablet every 8 (eight) hours Active2 ml metoclopramide 5 mg/ml prefilled syringe (1 source)Dopamine-2 Receptor AntagonistStart: 12-28-2019 End: 91-85-1776wvvfajirqcexga (REGLAN) injection 10 mgomega-3 acid ethyl esters (retirement) 1200 mg oral capsule (6 sources)[place]-3 Fatty Acids (FISH OIL) 1200 MG CAPS Take by mouth daily 0 ActiveOmega-3 Fatty Acids (FISH OIL) 1200 MG CAPS (1 source)[place]-3 Fatty Acids (FISH OIL) 1200 MG CAPS Take by mouth daily 0 Active2 ml ondansetron 2 mg/ml injection (1 source)Serotonin-3 Receptor AntagonistStart: 12-28-2019 End: 12-85-2194piuxyrjpvmm (ZOFRAN) injection 4 mgoxyCODONE hydrochloride 5 mg oral tablet (2 sources)Opioid AgonistStart: 12-28-2019 End: 85-85-8473sueKARHOM (ROXICODONE) immediate release tablet 5 mgpyridoxine hydrochloride 25 mg oral tablet (3 sources)Start: 69-94-7871exqr 1 tablet by mouth once dailyPyridoxine (Vitamin B6) 25 mg tablet Active 25 MG PO Daily December 13, 2023 11:00pmsildenafil 100 mg oral tablet (20 sources)Phosphodiesterase 5 InhibitorStart: 43-31-3978Txqajhsofa 100 mg tablet Active 100 MG PO As Directed as needed for sexual activity December 02, 2023 11:00pmStart: 09-87-7998Wlsgdnyems Active MG TABLET December 03, 2023 12:00am Start: 10-28-2023 End: 90-57-5062ybhs 1 tablet by mouth once daily as neededtake 1 tablet (100 mg) by oral route once daily as needed approximately 1 hour before sexual activity for 30 daysStart: 09-03-2021 End: 44-37-5003qzkc 1 tablet by mouth once daily as neededsildenafil 100 mg oral tablet 07/27/2022 10/25/2022 take 1 tablet (100 mg) by oral route once daily as needed approximately 1 hour before sexual activity for 90 daysStart: 02-21-2020 End: 47-08-3967pkuk 1 tablet by mouth once daily as neededsildenafil 100 mg oral tablet 02/21/2020 02/15/2021 take 1 tablet (100 mg) by oral route once daily as needed approximately 1 hour before sexual activity for 90 days3 ml sodium chloride 9 mg/ml injection (2 sources)Start: 95-01-9440uhwgcr chloride flush 0.9 % injection 10 mLSyringe, Disposable, 3 ML misc (2 sources)Start: 04-08-2025 End: 90-44-2649Uxgmclt, Disposable, 3 ML misc 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 1 Syringe every 14 (fourteen) days 10 each 1 04/08/2025 07/07/2025 Active1 ml testosterone cypionate 200 mg/ml injection (2 sources)AndrogenStart: 04-08-2025 End: 17-21-3196glhdsofilzca cypionate (Depo-Testosterone) 200 MG/ML injection 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 Inject 1 mL (200 mg) into the shoulder, thigh, or buttocks every 14 (fourteen) days 6 mL 04/08/2025 07/07/2025 Active vitamin b6 50 mg oral tablet (20 sources)Start: 03-21-2024 End: 76-53-2318dagm 1 tablet by mouth once dailyTake 1 tablet by mouth once dailyStart: 11-06-2021 End: 54-09-2158keeh 1 tablet by mouth once dailyTake 1 tablet by mouth once dailyStart: 12-27-2019 End: 04-35-7313yfov 1 tablet by mouth once dailytake 1 tablet by oral route dailyStart: 12-12-2018 End: 67-98-9580nlmg 1 tablet by mouth once dailytake 1 tablet by oral route dailytake 1 tablet by mouth once dailytake 1 tablet by oral route daily Completed/Discontinued Medications MedicationDrug Class(es)DatesSig (Normalized)Sig (Original)acetaminophen 325 mg / HYDROcodone bitartrate 5 mg oral tablet (20 sources)Opioid AgonistStart: 07-13-2017 End: 31-04-6473jlja 1 tablet by mouth every six hours as needed for paintake 1 tablet by oral route every 6 hours as needed for painacetaminophen 325 mg / oxyCODONE hydrochloride 5 mg oral tablet (1 source)Opioid AgonistStart: 12-28-2019 End: 27-60-0230gpfl 1-2 tablets by mouth every four to six hours as needed for painoxyCODONE-acetaminophen (PERCOCET) 5-325 MG per tablet Indications: 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, initial encounter Take 1-2 tablets by mouth every 4-6 hours as needed for Pain for up to 7 days. 56 tablet 0 12/28/2019 01/04/2020 [id number] 200 actuat albuterol 0.09 mg/actuat metered dose inhaler (20 sources)beta2-Adrenergic AgonistStart: 46-48-4819tufp 1 puff(s) by mouth every six hours as neededINHALE 1 PUFF BY MOUTH EVERY 6 HOURS NEEDEDStart: 23-37-9819Eeyubnkyb Sulfate 90 mcg/actuation HFA aerosol inhaler Active 1 INH INHALATION Every 6 hours as needed for shortness of breath or wheezing December 02, 2023 11:00pmStart: 98-45-0483Hfcfpyltc Sulfate Active INHALATION December 03, 2023 12:00amStart: 35-33-7651rwyv 1 puff(s) by mouth every six hours as neededINHALE 1 PUFF BY MOUTH EVERY 6 HOURS NEEDEDStart: 65-23-6276dkqn 1 puff(s) by mouth every six hours as neededVentolin HFA 90 mcg/actuation aerosol inhaler 05/11/2022 INHALE 1 PUFF BY MOUTH EVERY 6 HOURS NEEDEDStart: 00-99-8333mufw 1 puff(s) by mouth every six hours as neededVentolin HFA 90 mcg/actuation aerosol inhaler 03/06/2021 INHALE 1 PUFF BY MOUTH EVERY 6 HOURS NEEDEDStart: 25-54-5913dgsk 1 puff(s) by mouth every six hours as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 08-70-7510LsfoeiyNrpqucl ulcer of skin (20 sources)Non-pressure chronic ulcer of other part of right foot with unspecified severity; Translations: [Non-pressure chronic ulcer of other part of right foot with fat layer exposed]Onset: 49-67-2734OryzaflJopdlask mellitus with complications (20 sources)Diabetes with neurological manifestations, type II or unspecified type, uncontrolled; Translations:[Diabetes with peripheral circulatory disorders, type II or unspecified type, uncontrolled]Onset: ChronicDiabetes mellitus without complication (20 sources)Diabetes mellitus without mention of complication, type II or unspecified type, not stated as uncontrolled; Translations: [Type 2 diabetes mellitus]Onset: 800322-25-0880NhpdltbPslaimbtf of lipid metabolism (20 sources)Pure hyperglyceridemia; Translations: [Anu type IV hyperlipoproteinemia ]Onset: 462454-66-8308NaoqqezJrborpduxy disorders (20 sources)Gastro-esophageal reflux disease without esophagitisOnset: 11-09-0615AfyygnpNnmosynjb hypertension (20 sources)Benign essential hypertension; Translations: [Malignant essential hypertension]Onset: 51-08-3903PafxtfyCcpknshu cause codes: Fall (20 sources)Unspecified fall; Translations: [Fall]Onset: 20-97-7706Oqongvlnhjfb with complications and secondary hypertension (20 sources)Other unspecified secondary hypertension; Translations: [Hypertension secondary to endocrine disorders]Onset: 03-80-1641AzpvmqsFkdkvdi and fatigue (20 sources)Other malaise and fatigue; Translations: [Other fatigue]Onset: 58-76-8274SjrwgzkmTkvx disorders (20 sources)Depressive disorder, not elsewhere classified; Translations: [Depressive disorder]Onset: 42-42-2224AdrnumpWuiue aftercare (3 sources)Surgical follow-up; Translations: [Encounter for removal of sutures] 25-19-2594JpufqhohEflbq circulatory disease (20 sources)Peripheral vascular disease; Translations: [Other specified peripheral vascular diseases]Onset: 47-66-1908AezxkkuBdtnn circulatory disease (20 sources)Other specified peripheral vascular diseasesOnset: 23-16-2528Mtclrpr Other endocrine disorders (2 sources)Male hypogonadism; Translations: [Testicular hypofunction]04-08-2025 ChronicOther liver diseases (20 sources)Fatty (change of) liver, not elsewhere classifiedOnset: 01-15-2022 ChronicOther liver diseases (12 sources)Steatosis of liver; Translations: [Other chronic nonalcoholic liver disease]Onset: 69-78-6503TqjnvxqHzbmr lower respiratory disease (2 sources)Dyspnea; Translations: [Shortness of breath]16-27-9227ComyubeyApaqy male genital disorders (1 source)Impotence of organic originOnset: 25-63-1967QliqwuoKgxfn male genital disorders (20 sources)Erectile dysfunction due to diseases classified elsewhereOnset: 80-74-7452WswupoaUiuij nervous system disorders (20 sources)Disorder of the peripheral nervous system; Translations: [Unspecified hereditary and idiopathic peripheral neuropathy]Onset: 04-05-2017 ChronicOther nervous system disorders (20 sources)Unspecified hereditary and idiopathic peripheral neuropathyOnset: 43-66-2321VpahiwaRngdq nervous system disorders (20 sources)Mononeuritis of unspecified siteOnset: 09-84-8191EcpchpqUodjz nervous system disorders (20 sources)Polyneuropathy in diseases classified elsewhereOnset: 03-31-2016 ChronicOther nervous system disorders (20 sources)Polyneuropathy, unspecified; Translations: [Mononeuritis of unspecified site]Onset: 267763-75-0560LnbfozbUumaz nervous system disorders (8 sources)Neuropathy; Translations: [Polyneuropathy, unspecified]04-14-2022 ChronicOther non-traumatic joint disorders (1 source)Shoulder pain; Translations: [Acute pain of right shoulder]Episodic Other non-traumatic joint disorders (1 source)Pain in right knee; Translations: [Right knee pain, unspecified chronicity]Other nutritional; endocrine; and metabolic disorders (20 sources)Obesity, unspecifiedOnset: 87-29-6649RckogvuHasza nutritional; endocrine; and metabolic disorders (20 sources)Morbid obesityOnset: 51-93-8244MtkcdzkEmflc nutritional; endocrine; and metabolic disorders (20 sources)Obesity, unspecifiedOnset: 60-30-8150ZkrdgvrAqjwc nutritional; endocrine; and metabolic disorders (20 sources)Morbid (severe) obesity due to excess caloriesOnset: 06-03-2015 ChronicOther nutritional; endocrine; and metabolic disorders (20 sources)HypercalcemiaOnset: 35-70-1482IxdhryzRbjso nutritional; endocrine; and metabolic disorders (2 sources)Obesity caused by energy imbalance; Translations: [Class 1 obesity due to excess calories without serious comorbidity with body mass index (BMI) of 34.0 to 34.9 in adult]40-72-6726VcrcvgpMdqwg upper respiratory disease (20 sources)Allergic rhinitis, unspecifiedOnset: 06-43-9041DtexsdcTkcjy upper respiratory disease (20 sources)Chronic rhinitisOnset: 17-90-8546YiypessFilhr upper respiratory infections (20 sources)Chronic frontal sinusitisOnset: 37-32-9385ZwfokgqGtpjbqly codes; unclassified (19 sources)Obstructive sleep apnea (adult)(pediatric)Onset: 76-70-2034Ciwbulq Residual codes; unclassified (20 sources)Obstructive sleep apnea (adult) (pediatric)Onset: 65-63-6216Tusjqxb Residual codes; unclassified (20 sources)Tobacco use; Translations: [Tobacco use disorder]Onset: 08-26-2015 19-01-5071ZmbngnxeNhfqcvir codes; unclassified (8 sources)Tobacco use and exposure - finding; Translations: [Tobacco use] 48-69-3202KdzqmnfsVbfwxfgm codes; unclassified (2 sources)Reduced libido; Translations: [Decreased libido]45-29-9291Ppdycskh Sprains and strains (5 sources)Traumatic rupture of rotator cuff; Translations: [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, initial encounter]Onset: EpisodicSubstance-related disorders (20 sources)Tobacco use disorder; Translations: [Nicotine dependence, unspecified, uncomplicated]Onset: 08-00-0528Itgzkfr Past or Other Problems Problem ClassificationProblemDateDocumented DateEpisodic/ChronicAbdominal hernia (20 sources)Umbilical hernia without mention of obstruction or gangrene; Translations: [Umbilical hernia]Onset: 85-72-6012VehedoaeCwrhyjhirs associated with dizziness or vertigo (20 sources)Dizziness and giddiness; Translations: [Dizziness and giddiness] Onset: 49-28-8623KbyoigumXpegaabv mellitus with complications (20 sources)Type 2 diabetes mellitus with other diabetic neurological complication; Translations: [Diabetes mellitus due to underlying condition with diabetic neuropathic arthropathy]Onset: 06-03-2015E Codes: Fall (20 sources)Fall; Translations: [Unspecified fall]Onset: 41-41-4837SbwsaezfTvjmq and electrolyte disorders (20 sources)Hypopotassemia; Translations: [Hypokalemia]Onset: 56-22-4340Jvxurjld Fracture of lower limb (20 sources)Other fracture of right lower leg, initial encounter for closed fracture; Translations: [Fracture of unspecified metatarsal bone(s), right foot, initial encounter for closed fracture]Onset: 612836-31-3819Ibjbqxlo Comment on above:Problem List clean-up per request of Phys. EHR Cmte Immunizations and screening for infectious disease (20 sources)Need for prophylactic vaccination and inoculation against influenza; Translations: [Encounter for immunization]Onset: 81-73-5879XuttxponRfcj disorders (20 sources)Major depressive disorder, single episode, unspecified; Translations: [Mood disorders]Onset: 62-62-2275Xnsjshj (20 sources)Onychomycosis due to dermatophyte ; Translations: [Dermatophytosis of nail]Onset: 44-27-3475FzvpncyvRqcklotmr of unspecified nature or uncertain behavior (20 sources)Neoplasm of uncertain behavior of skin; Translations: [Neoplasm of uncertain behavior of skin]Onset: 91-71-3366XycvlfotJwbfehxjouj chest pain (20 sources)Chest pain, unspecified; Translations: [Chest pain, unspecified] Onset: 82-02-9097DvyxpazvWfqe wounds of extremities (20 sources)Unspecified open wound of unspecified toe(s) with damage to nail, initial encounter; Translations: [Unspecified open wound, right foot, initial encounter]Onset: 90-87-5952BowddsauUdfx wounds of head; neck; and trunk (20 sources)Laceration without foreign body of other part of head, initial encounter; Translations: [Laceration- injury]Onset: 929685-99-2392Jromtkej Other aftercare (13 sources)Encounter for removal of suturesOnset: 09-72-1987RimpqgurQbtzy aftercare (20 sources)Encounter for removal of suturesOnset: 10-95-8740DiuvhyjeMhrmv and unspecified benign neoplasm (19 sources)Benign neoplasm of skin of upper limb, including shoulderOnset: 44-03-9299HqxqnuptGtxnb and unspecified benign neoplasm (20 sources)Other benign neoplasm of skin of left upper limb, including shoulder Onset: 14-75-7031ThmwkmjjExugv connective tissue disease (8 sources)Adhesive capsulitis of shoulderOnset: 25-68-8321TqzrfaqrByggg connective tissue disease (20 sources)Adhesive capsulitis of unspecified shoulderOnset: 45-99-2466Tugouttl Other connective tissue disease (20 sources)Pain in left footOnset: 40-86-8470FfkzvpcdBfwfh connective tissue disease (20 sources)Foot pain; Translations: [Pain in limb]Onset: 36-07-6764Nywqntkg Other connective tissue disease (20 sources)Neuralgia and neuritis, unspecifiedOnset: 89-01-3400PcuctpwhWffjl connective tissue disease (20 sources)Pain in right foot; Translations: [PAIN IN RIGHT FOOT]Onset: 10-18-6854XuigviuyYjqzn endocrine disorders (20 sources)Endocrine disorder, unspecifiedOnset: 11-50-1898UxkfvjzcGmplq fractures (19 sources)Late effect of fracture of spine and trunk without mention of spinal cord lesionOnset: 74-54-7234PwvsjuisCkzrq fractures (20 sources)Multiple fractures of ribs, right side, sequelaOnset: 06-27-2017 EpisodicOther injuries and conditions due to external causes (19 sources)Open wound of face, unspecified site, without mention of complicationOnset: 79-74-2382OhocwafvFvmgz lower respiratory disease (20 sources)Shortness of breathOnset: 82-79-8117KgqowqniDjfib lower respiratory disease (20 sources)Other respiratory abnormalitiesOnset: 94-94-5878DfizcyokRqbci lower respiratory disease (19 sources)Respiratory abnormality, unspecifiedOnset: 61-59-9550HkawtdgoXecpj lower respiratory disease (20 sources)Shortness of breath; Translations: [Shortness of breath]Onset: 88-68-1946RsctosesEpyhw lower respiratory disease (20 sources)Other forms of dyspneaOnset: 28-81-0010EkukbuuxOkxge lower respiratory disease (20 sources)SnoringOnset: 26-64-2830MfkdalmoBalvo lower respiratory disease (20 sources)Unspecified abnormalities of breathingOnset: 23-00-2104FqdabvenSdfgd nervous system disorders (14 sources)Disturbance of skin sensationOnset: 33-51-8918KqjiwpylYbqlp nervous system disorders (20 sources)Other disturbances of skin sensationOnset: 70-87-8051WqqotbfeGclwf non-traumatic joint disorders (20 sources)Pain in right ankle and joints of right foot; Translations: [PAIN IN RIGHT ANKLE]Onset: 41-84-7539TlfdmdnkHbmye screening for suspected conditions (not mental disorders or infectious disease) (20 sources)Encounter for screening for malignant neoplasm of prostateOnset: 08-14-3537AabjysqtTjrpi skin disorders (20 sources)Sebaceous cystOnset: 28-03-3733MmjshzeiHmmfe skin disorders (20 sources)Unspecified hypertrophic and atrophic conditions of skinOnset: 87-32-3041TqtcrtpkIxylb skin disorders (20 sources)Follicular cyst of the skin and subcutaneous tissue, unspecified Onset: 99-33-8974FnuzoavcOtvgb skin disorders (20 sources)Other hypertrophic disorders of the skinOnset: 72-84-6499Ovyagmbk Other skin disorders (20 sources)Epidermal cystOnset: 08-99-4410AdpvmqhyGgmga skin disorders (20 sources)Sebaceous cystOnset: 65-08-7111CwuuivjbYuzyk skin disorders (20 sources)Foot callus; Translations: [Corns and callosities]Onset: 09-18-2021 EpisodicOther skin disorders (20 sources)Corns and callositiesOnset: 65-03-3451EgrqhqvoDowxn skin disorders (20 sources)Personal history of diseases of the skin and subcutaneous tissue Onset: 68-52-7001LfjwkptqFjgpemku codes; unclassified (19 sources)FlushingOnset: 88-62-7907InyurtrdYnctccvp codes; unclassified (15 sources)Other plastic surgery for unacceptable cosmetic appearanceOnset: 01-42-4102XqtncyxdDnhalghn codes; unclassified (20 sources)FlushingOnset: 04-57-2301IwsmvpskGuszvcbv codes; unclassified (20 sources)Encounter for cosmetic surgeryOnset: 60-50-0963OtcofmxnGvklesue codes; unclassified (20 sources)Localized edemaOnset: 20-35-9755WgoarzrrFalttwkg codes; unclassified (4 sources)Other specified health statusOnset: 27-19-4611OxashmekDrhy and subcutaneous tissue infections (20 sources)Abscess of toe of left foot; Translations: [Cellulitis and abscess of toe, unspecified]Onset: 40-03-5028GpsmvxumZaquullyefa; intervertebral disc disorders; other back problems (20 sources)Lumbago; Translations: [Low back pain]Onset: 92-25-5840Lkjlfrie Unclassified (20 sources)Anxiety state, unspecifiedOnset: 29-66-4958Dpfzegmncppu (1 source)Nondependent abuse of drugs; alcohol abuse; unspecifiedOnset: 77-46-5718Eveiv infection (20 sources)Viral infection, unspecifiedOnset: 51-44-0623Ezowkkcb Results Test NameValueInterpretationReference RangeFacilityX-ray reportOrdered By: Dionte Torres on 34-30-9560Srupp reportN[facility] Main [address] [address] XRay Report Signed Patient: Geremias Melchor MR#: [id number] : 1965 Acct:[id number] Age/Sex: 58 / M ADM Date: 5 Loc: RT Room: Type: [facility] CLI Attending Dr: Ayanna Brooks SECRETARY BOOK KEEPER-C Copies to: BETH Mccabe~ Ordering Provider: BETH [...] Torres Jr., D.O.07/19/2024 4:33 PM Dictation Location: [place] [address] Transcribed By: [facility] 07/19/24 1633 Dictated By: Dionte Torres Jr, DO 07/19/24 1633 Signed By: 07/19/24 1633 [facility]*on 62-39-2220PM chest 2V*[facility] Main [address] [address] XRay Report Signed Patient: Geremias Melchor MR#: [id number] : 1965 Acct:[id number] Age/Sex: 58 / M ADM Date: 07/19/24 Loc: RT Room: Type: [facility] CLI Attending Dr: Ayanna Brooks SECRETARY BOOK KEEPER-C Copies to: BETH Mccabe Ordering Provider: BETH [...] Torres Jr., D.O.07/19/2024 4:33 PM Dictation Location: [facility]--19 Transcribed By: [facility] 07/19/24 1633 Dictated By: Dionte Torres Jr, DO 07/19/24 1633 Signed By: 07/19/24 1633[facility] GroupCardiology Office/Clinic Noteon 23-26-1463Sqtmdshcqa Office/Clinic NoteChief Complaint Follow-up visit for hypertension, [...] mildly increased. Working t (more content not included)...[facility] Transthoracicon 13-03-4794Bxsuxfv Echocardiogram TransthoracicTRANSTHORACIC ECHOCARDIOGRAM Study Date/Time: Jan 11 2024 3:48PM BP: 148 / 90 HR: 88 bpm HT/WT: 180.3 cm (71 in) / 108.9 kg (239.5 lb) BSA/BMI: 2.28 m^2 / 33.5 kg/m^2 ORDERING PROVIDER: Ayanna Brooks INTERPRETING PHYSICIAN: Bo Pearce DO RENDERING EQUIPMENT TENDER: Vonda Paige RD, [facility] INDICATIONS: Dyspnea. CONCLUSIONS SUMMARY: 1. [...] 01/13/2024 7:32 am Signed (more content not included)...NormalCleveland Clinic Children'S Hospital For RehabilitationComment on above:Order Comment: flacaLaboratory - Chemistry and Chemistry - challengeon 66-93-3973Ncxyfsq (U) [Mass/Vol]21.2Invalid Interpretation Code<17.0[place] CenterCyntellect [facility] Albumin [Mass/Vol]4.60 g/dLInvalid Interpretation Code 3.7-5.0[place] [facility]Handle [facility] Albumin/Creatinine DL <= 20 mg/L (U) [Mass ratio]43.1 mg/gInvalid Interpretation Code0.0-30.0[place] [facility] Albumin/Globulin [Mass ratio]1.3 {ratio}Invalid Interpretation Code1.0-2.4[facility] iHandle [facility] ALP [Catalytic activity/Vol]83.0 U/LInvalid Interpretation Hdqr89-075FvisclggpCeeLite Technologies ALT [Catalytic activity/Vol]51.0 U/LInvalid Interpretation Code0-50[place] CenterCee[facility] Anion gap [Moles/Vol]14 mmol/LInvalid Interpretation Wakc18-85Eyblvnhfz iHandle [facility] AST [Catalytic activity/Vol]41.0 U/LInvalid Interpretation Code0-40[place] [facility] Bilirubin [Mass/Vol]0.30 mg/dLInvalid Interpretation Code0.0-1.0[place] [facility] Bilirubin Ql (U)NegativeInvalid Interpretation Code NegativeDallas CenterCyntellect [facility] Calcium [Mass/Vol]10.40 mg/dLInvalid Interpretation Code8.5-10.8[facility] iHandle [facility] Chloride [Moles/Vol]102.0 mmol/LInvalid Interpretation Hcgl252-669Uvpqaqgay iHandle [facility] Cholesterol [Mass/Vol]236.0 mg/dLInvalid Interpretation Code0-200[place] CenterCyntellect [facility] Cholesterol in HDL [Mass/Vol]53.0 mg/dLInvalid Interpretation Bimm17-700OmizencnaCyntellect [facility] Cholesterol in LDL [Mass/Vol]146.0 mg/dLInvalid Interpretation Code0-130[place] [facility] Cholesterol in VLDL [Mass/Vol]37.0 mg/dLInvalid Interpretation Code0-39[place] CenterCyntellect [facility] Cholesterol.total/Cholesterol in HDL [Mass ratio]4 {ratio}Invalid Interpretation CodeDallas CenterCyntellect [facility] CO2 [Moles/Vol]25.0 mmol/LInvalid Interpretation Code 23-30[place] CenterC[facility]tel[facility] Creatinine (U) [Mass/Vol]49.20 mg/dLInvalid Interpretation CodeNot Estab. mg/dLBl[facility] [employer]oze Creatinine [Mass/Vol]1.10 mg/dLInvalid Interpretation Code0.5-1.5Bwenatchee valley medical centerMyhomepayge, Inc. Glucose [Mass/Vol]159.0 mg/dLInvalid Interpretation Jgts76-706DiowarlllCeeLite Technologies Ketones Ql (U)NegativeInvalid Interpretation Code NegativeDallas CenterCeeLite Technologies pH (U)6 [pH]Invalid Interpretation Code5.0-9.0[place] CenterCyntellect [facility] Potassium [Moles/Vol]4.40 mmol/LInvalid Interpretation Code3.5-5.3Bwenatchee valley medical centerNemedia [facility] Protein [Mass/Vol]8.20 g/dLInvalid Interpretation Code 6.3-7.9Bwenatchee valley medical centerMyhomepayge, Inc. Sodium [Moles/Vol]137.0 mmol/LInvalid Interpretation Nomy476-388GyrxryqkmCyntellect [facility] Specific gravity (U) [Rel density]1.010Invalid Interpretation Code1.003-1.030[place] CenterCeeL[facility] Technologies Triglyceride [Mass/Vol]184.0 mg/dLInvalid Interpretation Inhr03-914XjzmdevjtCeeLite Technologies Urea nitrogen [Mass/Vol]16.0 mg/dLInvalid Interpretation Code7-25[place] CenterCyntellect [facility] Urea nitrogen/Creatinine [Mass ratio]15 mg/mgInvalid Interpretation Code6-20[place] CenterCeeL[facility] Technologies Urobilinogen (U) [Mass/Vol]normalInvalid Interpretation CodenormalDallas CenterCyntellect [facility] Laboratory - Hematology and Cell countson 11-14-2023 Erythrocyte distribution width (RBC) [Ratio]12.60 %Invalid Interpretation Code 11.5-15.5Bmayo clinic health system– red cedarMZL [employer] HbA1c (Bld) [Mass fraction]6.80 %Invalid Interpretation Code4.3-6.3[facility] iHandle [facility] Hematocrit (Bld) [Volume fraction]46.80 %Invalid Interpretation Code37.8-51.0[place] CenterCyntel[facility] Hemoglobin (Bld) [Mass/Vol]15.70 g/dLInvalid Interpretation Code12.6-17.0[place] CenterCyntel[facility] Hemoglobin Ql (U)NegativeInvalid Interpretation Code NegativeFairfield Medical Center [employer] Solo [facility] MCH (RBC) [Entitic mass]32.80 pgInvalid Interpretation Code25.7-33.8[facility] iHandle [facility] MCHC (RBC) [Mass/Vol]33.50 g/dLInvalid Interpretation Code32.0-36.0[place] CenterCyntellect [facility] MCV (RBC) [Entitic vol]97.70 fLInvalid Interpretation Code81.0-100.2Bwenatchee valley medical centerNemedia [facility] Platelet mean volume (Bld) [Entitic vol]9.70 fLInvalid Interpretation Code8.3-11.5Bwenatchee valley medical centerNemedia [facility] Platelets (Bld) [#/Vol]240.0 10*3/uLInvalid Interpretation Swuf664-202DiumxoutnCyntellect [facility] RBC (Bld) [#/Vol]4.790 10*6/uLInvalid Interpretation Code4.34-5.61[place] CenterCyntellect [facility] WBC (Bld) [#/Vol]6.90 10*3/uLInvalid Interpretation Code3.9-10.3Bwenatchee valley medical centerNemedia [facility] Laboratory - Specimen informationon 31-07-7768Znjcdtd (U)ClearInvalid Interpretation CodeClearBlanwestern medical center Cloze Color (U)yellowInvalid Interpretation Codeyellow [place] [facility] [employer] Laboratory - Urinalysison 29-07-2170Ewhbiue Test strip (U) [Mass/Vol]4+Invalid Interpretation CodeNegativeD[place] CenterCeeLite Technologies Leukocyte esterase Test strip Ql (U)TraceInvalid Interpretation CodeNegativeDallas CenterCeeLite Technologies Nitrite Ql (U)NegativeInvalid Interpretation Code NegativeDallas CenterCeeLite Technologies Protein Ql (U)1+Invalid Interpretation CodeNegative MonroeAth[employer] No Panel Informationon 39-40-4807788.0 mg/dLInvalid Interpretation CodeMacheen 77Invalid Interpretation CodeDallas CenterCeeLite Technologies No Panel Informationon 86-58-1645Ogzggyd smoking status Current Tobacco UserInvalid Interpretation CodeMacheen Diabetic Retinal Eye ExamInvalid Interpretation Code Orph[employer] Physician Orderon 61-33-8000Ehoebwvgi Order [id number]#1.00TIFFNormalFisher [facility] Va Medical CenterLaboratory - Chemistry and Chemistry - challengeon 72-62-3744Fkuoqfs (U) [Mass/Vol]< 12.0Invalid Interpretation Code< 17.0 ug/mLMacheen Albumin [Mass/Vol]4.50 g/dLInvalid Interpretation Code 3.7-5.0Macheen Albumin/Globulin [Mass ratio]1.4 {ratio}Invalid Interpretation Code1.0-2.4Bwenatchee valley medical centerNemedia [facility] ALP [Catalytic activity/Vol]93.0 U/LInvalid Interpretation Reqo29-985RrydyagogCeeLite Technologies ALT [Catalytic activity/Vol]62.0 U/LInvalid Interpretation Code0-50[place] CenterC[facility] Anion gap [Moles/Vol]16 mmol/LInvalid Interpretation Ndpm71-61TnyjebabkCeeLite Technologies AST [Catalytic activity/Vol]46.0 U/LInvalid Interpretation Code0-40[place] CenterC[facility] Bilirubin [Mass/Vol]0.40 mg/dLInvalid Interpretation Code0.0-1.0[place] CenterC[facility] Bilirubin Ql (U)NegativeInvalid Interpretation Code NegativeDallas CenterCeeLite Technologies Calcium [Mass/Vol]10.20 mg/dLInvalid Interpretation Code8.5-10.8Bwenatchee valley medical centerMyhomepayge, Inc. Chloride [Moles/Vol]99.0 mmol/LInvalid Interpretation Itev100-590VaibftethCeeLite Technologies Cholesterol [Mass/Vol]212.0 mg/dLInvalid Interpretation Code0-200[place] CenterC[facility] Cholesterol in HDL [Mass/Vol]49.0 mg/dLInvalid Interpretation Ygwh51-056DbbjrqxknMacheen Cholesterol in LDL [Mass/Vol]135.0 mg/dLInvalid Interpretation Code0-130[place] CenterCeeL[facility] Technologies Cholesterol in VLDL [Mass/Vol]28.0 mg/dLInvalid Interpretation Code0-39Macheen Cholesterol.total/Cholesterol in HDL [Mass ratio]4 {ratio}Invalid Interpretation CodeDallas CenterCyntellect [facility] CO2 [Moles/Vol]26.0 mmol/LInvalid Interpretation Code 23-30[place] CenterCyntellect [facility] Creatinine (U) [Mass/Vol]75.30 mg/dLInvalid Interpretation CodeNot Estab. mg/dLBlouis stokes [facility] iHandle [facility] Creatinine [Mass/Vol]1.10 mg/dLInvalid Interpretation Code0.5-1.5[facility] iHandle [facility] Glucose [Mass/Vol]111.0 mg/dLInvalid Interpretation Ofyt62-918AqzlbocmvCyntellect [facility] Ketones Ql (U)NegativeInvalid Interpretation Code NegativeDallas CenterCyntellect [facility] pH (U)6 [pH]Invalid Interpretation Code5.0-9.0[place] CenterCyntellect [facility] Dix [facility] Potassium [Moles/Vol]4.70 mmol/LInvalid Interpretation Code3.5-5.3Bwenatchee valley medical centerMyhomepayge, Inc. Prostate specific Ag [Mass/Vol]0.94 ng/mLInvalid Interpretation Code0.00-4.00[place] CenterCyntellect [facility] Protein [Mass/Vol]7.80 g/dLInvalid Interpretation Code 6.3-7.9Bwenatchee valley medical centerNemedia [facility] Sodium [Moles/Vol]136.0 mmol/LInvalid Interpretation Hsnb386-579CgxeerxmeCeeLite Technologies Specific gravity (U) [Rel density]1.015Invalid Interpretation Code1.003-1.030[place] CenterCeeL[facility] Technologies Triglyceride [Mass/Vol]141.0 mg/dLInvalid Interpretation Fsau88-417FgglsheilCeeLite Technologies Urea nitrogen [Mass/Vol]20.0 mg/dLInvalid Interpretation Code7-25[place] CenterCeeL[facility] Technologies Urea nitrogen/Creatinine [Mass ratio]18 mg/mgInvalid Interpretation Code6-20[place] CenterCeeLite Technologies Urobilinogen (U) [Mass/Vol]normalInvalid Interpretation CodenormalDallas CenterCyntellect [facility] Laboratory - Hematology and Cell countson 01-25-2023 Erythrocyte distribution width (RBC) [Ratio]12.10 %Invalid Interpretation Code 11.5-15.5[facility] HbA1c (Bld) [Mass fraction]6.60 %Invalid Interpretation Code4.3-6.3[facility] Hematocrit (Bld) [Volume fraction]43.70 %Invalid Interpretation Code37.8-51.0[place] CenterCeeLite Technologies Hemoglobin (Bld) [Mass/Vol]14.90 g/dLInvalid Interpretation Code12.6-17.0[place] CenterCeeLite Technologies Hemoglobin Ql (U)NegativeInvalid Interpretation Code NegativeDallas CenterCeeLite Technologies MCH (RBC) [Entitic mass]32.50 pgInvalid Interpretation Code25.7-33.8Bwenatchee valley medical centerMyhomepayge, Inc. MCHC (RBC) [Mass/Vol]34.10 g/dLInvalid Interpretation Code32.0-36.0[place] CenterCeeLite Technologies MCV (RBC) [Entitic vol]95.40 fLInvalid Interpretation Code81.0-100.2Bmayo clinic health system– red cedarMZL [employer] Platelet mean volume (Bld) [Entitic vol]9.20 fLInvalid Interpretation Code8.3-11.5Bwenatchee valley medical centerMyhomepayge, Inc. Platelets (Bld) [#/Vol]225.0 10*3/uLInvalid Interpretation Tibn762-508Cewtlnesl [place] [facility] RBC (Bld) [#/Vol]4.580 10*6/uLInvalid Interpretation Code4.34-5.61[facility] WBC (Bld) [#/Vol]8.0 10*3/uLInvalid Interpretation Code 3.9-10.3B[facility] Laboratory - Specimen informationon 95-51-5945Ffzhyst (U)ClearInvalid Interpretation CodeClearBOhio State University [facility] Color (U)yellowInvalid Interpretation Codeyellow [facility] Laboratory - Urinalysison 64-94-8851Gblbftg Test strip (U) [Mass/Vol]4+Invalid Interpretation CodeNegativeFairfield Medical Center [facility] Leukocyte esterase Test strip Ql (U)NegativeInvalid Interpretation CodeNegativeFairfield Medical Center [facility] Nitrite Ql (U)NegativeInvalid Interpretation Code NegativeFairfield Medical Center [facility] Protein Ql (U)NegativeInvalid Interpretation Code NegativeFairfield Medical Center [facility] No Panel Informationon 30-27-351744Afmetod Interpretation CodeFairfield Medical Center [facility] 143.0 mg/dLInvalid Interpretation CodeCol[place] iHandle [facility] No Panel Informationon 68-85-4935Qxlxdql smoking status Current Tobacco UserInvalid Interpretation CodeDallas CenterCyntellect [facility] Laboratory - Chemistry and Chemistry - challengeon 92-64-279037588367-ltybegtjkxshjl D3 [Mass/Vol]26.8 ng/mLInvalid Interpretation Code 30.0-100.0[place] CenterCeeLite Technologies Albumin (U) [Mass/Vol]< 12.0Invalid Interpretation Code < 17.0 ug/mLDallas CenterCeeLite Technologies Albumin [Mass/Vol]4.50 g/dLInvalid Interpretation Code 3.7-5.0[place] CenterCeeL[facility] Technologies Albumin/Globulin [Mass ratio]1.3 {ratio}Invalid Interpretation Code1.0-2.4Bwenatchee valley medical centerMyhomepayge, Inc. ALP [Catalytic activity/Vol]74.0 U/LInvalid Interpretation Tqjp48-174RvkmtalitCeeLite Technologies ALT [Catalytic activity/Vol]24.0 U/LInvalid Interpretation Code0-50[place] CenterCeeL[facility] Technologies Anion gap [Moles/Vol]16 mmol/LInvalid Interpretation Pswb07-78LbaicpwuxCeeLite Technologies AST [Catalytic activity/Vol]14.0 U/LInvalid Interpretation Code0-40[place] CenterCeeL[facility] Technologies Bilirubin [Mass/Vol]0.30 mg/dLInvalid Interpretation Code0.0-1.0[place] CenterCeeL[facility] Bilirubin Ql (U)NegativeInvalid Interpretation Code NegativeD[place] CenterCeeLite Technologies Calcium [Mass/Vol]10.20 mg/dLInvalid Interpretation Code8.5-10.8Bwenatchee valley medical centerMyhomepayge, Inc. Chloride [Moles/Vol]96.0 mmol/LInvalid Interpretation Xzkv559-171ZpydichcpCeeLite Technologies Cholesterol [Mass/Vol]218.0 mg/dLInvalid Interpretation Code0-200[place] CenterCeeL[facility] Technologies Cholesterol in HDL [Mass/Vol]41.0 mg/dLInvalid Interpretation Hprw22-911Znewowaoy [facility]ze Cholesterol in LDL [Mass/Vol]139.0 mg/dLInvalid Interpretation Code0-130[facility] [employer] Cholesterol in VLDL [Mass/Vol]38.0 mg/dLInvalid Interpretation Code0-39[place] [facility] Cholesterol.total/Cholesterol in HDL [Mass ratio]5 {ratio}Invalid Interpretation CodeDallas CenterCyntellect [facility] CO2 [Moles/Vol]26.0 mmol/LInvalid Interpretation Code 23-30[place] [facility] Creatinine (U) [Mass/Vol]41.10 mg/dLInvalid Interpretation CodeNot Estab. mg/dLBlouis stokes [facility] iHandle [facility] Creatinine [Mass/Vol]1.0 mg/dLInvalid Interpretation Code0.5-1.5[facility] iHandle [facility] GFR/1.73 sq M.predicted among non-blacks MDRD (S/P/Bld) [Vol rate/Area]77 mL/min/{1.73_m2}Invalid Interpretation CodeDallas CenterCyntellect [facility] Glucose [Mass/Vol]134.0 mg/dLInvalid Interpretation Quft72-144XrdtbdyalCyntellect [facility] Ketones Ql (U)NegativeInvalid Interpretation Code NegativeDallas CenterCyntellect [facility] Parathyrin.intact [Mass/Vol]24 pg/mLInvalid Interpretation Zowf66-44TubnenclkCeeLite Technologies pH (U)6.5 [pH]Invalid Interpretation Code5.0-9.0 [place] [facility] Phosphate [Mass/Vol]3.60 mg/dLInvalid Interpretation Code2.5-4.5BOhio [facility] Potassium [Moles/Vol]4.60 mmol/LInvalid Interpretation Code3.5-5.3B[facility] Protein [Mass/Vol]7.90 g/dLInvalid Interpretation Code 6.3-7.9B[facility] Sodium [Moles/Vol]133.0 mmol/LInvalid Interpretation Yigc372-395EeqlatvxnKettering Health [facility] Specific gravity (U) [Rel density]1.005Invalid Interpretation Code1.003-1.030[facility] Triglyceride [Mass/Vol]190.0 mg/dLInvalid Interpretation Sftf11-644Bkjkcccby [place] [facility] Urea nitrogen [Mass/Vol]23.0 mg/dLInvalid Interpretation Code7-25[facility] Urea nitrogen/Creatinine [Mass ratio]23 mg/mgInvalid Interpretation Code6-20[facility] Urobilinogen (U) [Mass/Vol]normalInvalid Interpretation CodenormalFairfield Medical Center [facility] Laboratory - Hematology and Cell countson 07-27-2022 HbA1c (Bld) [Mass fraction]6.70 %Invalid Interpretation Code4.3-6.3B[facility] Hemoglobin Ql (U)NegativeInvalid Interpretation Code NegativeFairfield Medical Center [facility] Laboratory - Specimen informationon 29-43-7470Nabsnbd (U)clearInvalid Interpretation CodeClearBOhio State University [facility] Color (U)yellowInvalid Interpretation Codeyellow [facility] - Urinalysison 43-54-6626Gyuxlzn Test strip (U) [Mass/Vol]4+Invalid Interpretation CodeNegativeD[place] CenterCeeLite Technologies Leukocyte esterase Test strip Ql (U)NegativeInvalid Interpretation CodeNegativeD[place] CenterCeeLite Technologies Nitrite Ql (U)NegativeInvalid Interpretation Code NegativeD[place] CenterCeeLite Technologies Protein Ql (U)NegativeInvalid Interpretation Code NegativeD[place] CenterCeeLite Technologies No Panel Informationon 45-49-0122Ioas mass index (BMI) [Percentile] Per age and sex0.1 {percentile}Invalid Interpretation CodeDallas CenterCeeLite Technologies 064-9628Jjwfmj-pka-length Per age and sex0.1 {percentile} Invalid Interpretation CodeD[place] CenterCeeLite Technologies 146.0 mg/dLInvalid Interpretation CodeD[place] CenterCeeLite Technologies Patient did NOT bring meterInvalid Interpretation Code 70-117[place] CenterCeeL[facility] Technologies Laboratory - Chemistry and Chemistry - challengeon 15-08-5448Tvyqckq (U) [Mass/Vol]17.1Invalid Interpretation Code<17.0[place] CenterCeeL[facility] Albumin [Mass/Vol]4.80 g/dLInvalid Interpretation Code 3.7-5.0[place] CenterCeeL[facility] Albumin/Creatinine DL <= 20 mg/L (U) [Mass ratio]26.8 mg/gInvalid Interpretation Code0.0-30.0[place] CenterCeeL[facility] Technologies Albumin/Globulin [Mass ratio]1.7 {ratio}Invalid Interpretation Code1.0-2.4[facility] ALP [Catalytic activity/Vol]65.0 U/LInvalid Interpretation Mgvk15-034AjtnyknwgCeeLite Technologies ALT [Catalytic activity/Vol]51.0 U/LInvalid Interpretation Code0-50[facility] Anion gap [Moles/Vol]13 mmol/LInvalid Interpretation Kuga01-33Hsfphrqwg [place] [facility] AST [Catalytic activity/Vol]30.0 U/LInvalid Interpretation Code0-40[facility] Bilirubin [Mass/Vol]0.50 mg/dLInvalid Interpretation Code0.0-1.0[place] [facility] Calcium [Mass/Vol]10.80 mg/dLInvalid Interpretation Code8.5-10.8BOhio [facility] Chloride [Moles/Vol]99.0 mmol/LInvalid Interpretation Jlcy211-374Cizvftubd [place] [facility] Cholesterol [Mass/Vol]214.0 mg/dLInvalid Interpretation Code0-200[place] [facility] Cholesterol in HDL [Mass/Vol]57.0 mg/dLInvalid Interpretation Gegi25-787BpgdnzkmdCyntellect [facility] Cholesterol in LDL [Mass/Vol]133.0 mg/dLInvalid Interpretation Code0-130[place] CenterCyntellect [facility] Cholesterol in VLDL [Mass/Vol]24.0 mg/dLInvalid Interpretation Code0-39[place] [facility] Cholesterol.total/Cholesterol in HDL [Mass ratio]4 {ratio}Invalid Interpretation CodeDallas CenterCyntellect [facility] CO2 [Moles/Vol]30.0 mmol/LInvalid Interpretation Code 23-30[place] CenterCyntellect [facility] Creatinine (U) [Mass/Vol]63.80 mg/dLInvalid Interpretation CodeNot Estab. mg/dLBlouis stokes [facility] Creatinine [Mass/Vol]1.10 mg/dLInvalid Interpretation Code0.5-1.5Bwenatchee valley medical centerMyhomepayge, Inc. GFR/1.73 sq M.predicted among non-blacks MDRD (S/P/Bld) [Vol rate/Area]69 mL/min/{1.73_m2}Invalid Interpretation CodeBlst. joseph's hospital health centerCeeLite Technologies Glucose [Mass/Vol]128.0 mg/dLInvalid Interpretation Cpmz90-098SjorlyaisCeeLite Technologies Potassium [Moles/Vol]4.60 mmol/LInvalid Interpretation Code3.5-5.3Bwenatchee valley medical centerMyhomepayge, Inc. Prostate specific Ag [Mass/Vol]0.85 ng/mLInvalid Interpretation Code0.00-4.00[place] CenterCyntellect [facility] Protein [Mass/Vol]7.60 g/dLInvalid Interpretation Code 6.3-7.9Bmayo clinic health system– red cedarMZL [employer] Sodium [Moles/Vol]137.0 mmol/LInvalid Interpretation Ayhk661-827XhiruecmuCeeLite Technologies Triglyceride [Mass/Vol]120.0 mg/dLInvalid Interpretation Ghao06-655FgegobhgqCyntellect [facility] Urea nitrogen [Mass/Vol]16.0 mg/dLInvalid Interpretation Code7-25[place] CenterCeeL[facility] Technologies Urea nitrogen/Creatinine [Mass ratio]15 mg/mgInvalid Interpretation Code6-20[facility] - Hematology and Cell countson 02-17-2022 HbA1c (Bld) [Mass fraction]6.50 %Invalid Interpretation Code4.3-6.3Bmayo clinic health system– red cedarMZL [employer] No Panel Informationon 12-88-1108314.0 mg/dLInvalid Interpretation CodeDallas CenterCeeLite Technologies Laboratory - Chemistry and Chemistry - challengeon 06-42-3994Vtvafjb (U) [Mass/Vol]< 12.0Invalid Interpretation Code< 17.0 ug/mL [facility] Albumin [Mass/Vol]4.70 g/dLInvalid Interpretation Code 3.7-5.0[place] CenterCeeL[facility] Albumin/Globulin [Mass ratio]1.6 {ratio}Invalid Interpretation Code1.0-2.4[facility] ALP [Catalytic activity/Vol]66.0 U/LInvalid Interpretation Iyeh63-164BlyfhtybuCeeLite Technologies ALT [Catalytic activity/Vol]38.0 U/LInvalid Interpretation Code0-50[place] CenterCeeL[facility] Technologies Anion gap [Moles/Vol]15 mmol/LInvalid Interpretation Maos78-51SnfyvcsncCeeLite Technologies AST [Catalytic activity/Vol]23.0 U/LInvalid Interpretation Code0-40[place] CenterCeeL[facility] Bilirubin [Mass/Vol]0.40 mg/dLInvalid Interpretation Code0.0-1.0[place] CenterCyntellect [facility] Bilirubin Ql (U)NegativeInvalid Interpretation Code NegativeD[place] CenterCyntellect [facility] Calcium [Mass/Vol]10.40 mg/dLInvalid Interpretation Code8.5-10.8[facility] Chloride [Moles/Vol]101.0 mmol/LInvalid Interpretation Qthq442-908HtweidngfCeeLite Technologies CO2 [Moles/Vol]28.0 mmol/LInvalid Interpretation Code 23-30[facility] Creatinine (U) [Mass/Vol]60.60 mg/dLInvalid Interpretation CodeNot Estab. mg/dLBOhio State University [facility] Creatinine [Mass/Vol]1.10 mg/dLInvalid Interpretation Code0.5-1.5BOhio [facility] Gamma glutamyl transferase [Catalytic activity/Vol]62 U/LInvalid Interpretation Code7-51[place] [facility] GFR/1.73 sq M.predicted among non-blacks MDRD (S/P/Bld) [Vol rate/Area]69 mL/min/{1.73_m2}Invalid Interpretation CodeFairfield Medical Center [facility] Glucose [Mass/Vol]116.0 mg/dLInvalid Interpretation Qoya99-613Jdiaiywla [place] [facility] Ketones Ql (U)1+Invalid Interpretation CodeNegative [facility] pH (U)6 [pH]Invalid Interpretation Code5.0-9.0[place] [facility] Potassium [Moles/Vol]4.80 mmol/LInvalid Interpretation Code3.5-5.3[facility] iHandle [facility] Protein [Mass/Vol]7.70 g/dLInvalid Interpretation Code 6.3-7.9[facility] iHandle [facility] Sodium [Moles/Vol]139.0 mmol/LInvalid Interpretation Rnma099-164HjgxjabulCyntellect [facility] Specific gravity (U) [Rel density]1.010Invalid Interpretation Code1.003-1.030[place] [facility] Urea nitrogen [Mass/Vol]17.0 mg/dLInvalid Interpretation Code7-25[place] CenterCyntellect [facility] Urea nitrogen/Creatinine [Mass ratio]15 mg/mgInvalid Interpretation Code6-20[place] CenterCyntellect [facility] Urobilinogen (U) [Mass/Vol]normalInvalid Interpretation CodenormalFairfield Medical Center [facility] Laboratory - Hematology and Cell countson 01-15-2022 Erythrocyte distribution width (RBC) [Ratio]12.50 %Invalid Interpretation Code 11.5-15.5[facility] iHandle [facility] HbA1c (Bld) [Mass fraction]6.60 %Invalid Interpretation Code4.3-6.3[facility] iHandle [facility] Hematocrit (Bld) [Volume fraction]49.80 %Invalid Interpretation Code37.8-51.0[place] CenterCyntellect [facility] Hemoglobin (Bld) [Mass/Vol]16.40 g/dLInvalid Interpretation Code12.6-17.0[place] CenterCyntellect [facility] Hemoglobin Ql (U)NegativeInvalid Interpretation Code NegativeD[place] CenterCyntellect [facility] MCH (RBC) [Entitic mass]31.90 pgInvalid Interpretation Code25.7-33.8Bwenatchee valley medical centerNemedia [facility] MCHC (RBC) [Mass/Vol]32.90 g/dLInvalid Interpretation Code32.0-36.0[place] CenterCyntellect [facility] MCV (RBC) [Entitic vol]96.90 fLInvalid Interpretation Code81.0-100.2Bwenatchee valley medical centerMyhomepayge, Inc. Platelet mean volume (Bld) [Entitic vol]9.30 fLInvalid Interpretation Code8.3-11.5Bwenatchee valley medical centerMyhomepayge, Inc. Platelets (Bld) [#/Vol]216.0 10*3/uLInvalid Interpretation Dtsb034-234Renjvaafq [place] [facility] RBC (Bld) [#/Vol]5.140 10*6/uLInvalid Interpretation Code4.34-5.61[facility] WBC (Bld) [#/Vol]7.30 10*3/uLInvalid Interpretation Code3.9-10.3B[facility] Laboratory - Specimen informationon 96-40-7471Bzfiyxd (U)clearInvalid Interpretation CodeClearBOhio State University [facility] Color (U)yellowInvalid Interpretation Codeyellow [facility] Laboratory - Urinalysison 58-78-3820Txgdkoa Test strip (U) [Mass/Vol]4+Invalid Interpretation CodeNegativeFairfield Medical Center [facility] Leukocyte esterase Test strip Ql (U)NegativeInvalid Interpretation CodeNegativeFairfield Medical Center [facility] Nitrite Ql (U)NegativeInvalid Interpretation Code NegativeFairfield Medical Center [facility] Protein Ql (U)NegativeInvalid Interpretation Code NegativeFairfield Medical Center [facility] No Panel Informationon 27-57-4409884.0 mg/dLInvalid Interpretation CodeFairfield Medical Center [facility] Glucose Meter Check NOT PerformedInvalid Interpretation Sitk06-589Xoafhpbkg iHandle [facility] Laboratory - Chemistry and Chemistry - challengeon 34-92-3229Cqvcuza [Mass/Vol]4.70 g/dLInvalid Interpretation Code3.7-5.0[place] [facility] Albumin/Globulin [Mass ratio]1.7 {ratio}Invalid Interpretation Code1.0-2.4[facility] iHandle [facility] ALP [Catalytic activity/Vol]62.0 U/LInvalid Interpretation Fwjh70-891Ktvnnqmjy [facility] ALT [Catalytic activity/Vol]57.0 U/LInvalid Interpretation Code0-50[place] [facility] Anion gap [Moles/Vol]16 mmol/LInvalid Interpretation Zayy79-98Litujkuwh [facility] AST [Catalytic activity/Vol]33.0 U/LInvalid Interpretation Code0-40[place] CenterCeeLite Technologies Bilirubin [Mass/Vol]0.40 mg/dLInvalid Interpretation Code0.0-1.0[place] CenterCeeL[facility] Calcium [Mass/Vol]10.20 mg/dLInvalid Interpretation Code8.5-10.8[facility] Chloride [Moles/Vol]99.0 mmol/LInvalid Interpretation Xldd153-245BidzxrwvjCeeLite Technologies Cholesterol [Mass/Vol]217.0 mg/dLInvalid Interpretation Code0-200[place] CenterCeeL[facility] Technologies Cholesterol in HDL [Mass/Vol]49.0 mg/dLInvalid Interpretation Aenb92-075HlwqfmxmaCeeLite Technologies Cholesterol in LDL [Mass/Vol]131.0 mg/dLInvalid Interpretation Code0-130[place] CenterCeeL[facility] Cholesterol in VLDL [Mass/Vol]37.0 mg/dLInvalid Interpretation Code0-39[place] CenterCee[facility] Cholesterol.total/Cholesterol in HDL [Mass ratio]4 {ratio}Invalid Interpretation CodeDallas CenterCeeLite Technologies CO2 [Moles/Vol]28.0 mmol/LInvalid Interpretation Code 23-30[place] CenterCeeL[facility] Creatinine [Mass/Vol]1.10 mg/dLInvalid Interpretation Code0.5-1.5Bwenatchee valley medical centerNemedia [facility] Gamma glutamyl transferase [Catalytic activity/Vol]98 U/LInvalid Interpretation Code7-51[place] [facility] GFR/1.73 sq M.predicted among non-blacks MDRD (S/P/Bld) [Vol rate/Area]69 mL/min/{1.73_m2}Invalid Interpretation CodeDallas CenterCyntellect [facility] Glucose [Mass/Vol]127.0 mg/dLInvalid Interpretation Jotn20-102SiymrbovtCyntellect [facility] Potassium [Moles/Vol]4.40 mmol/LInvalid Interpretation Code3.5-5.3[facility] iHandle [facility] Protein [Mass/Vol]7.50 g/dLInvalid Interpretation Code 6.3-7.9Bwenatchee valley medical centerNemedia [facility] Sodium [Moles/Vol]139.0 mmol/LInvalid Interpretation Mjat124-046CrvcsbbtcCyntellect [facility] Triglyceride [Mass/Vol]186.0 mg/dLInvalid Interpretation Uwth29-879MvonotgdlCyntellect [facility] Urea nitrogen [Mass/Vol]19.0 mg/dLInvalid Interpretation Code7-25[place] CenterCyntellect [facility] Urea nitrogen/Creatinine [Mass ratio]17 mg/mgInvalid Interpretation Code6-20[place] CenterCeeLite Technologies Laboratory - Hematology and Cell countson 08-18-2021 Erythrocyte distribution width (RBC) [Ratio]12.60 %Invalid Interpretation Code 11.5-15.5Bmayo clinic health system– red cedarbeBetter Health [facility] HbA1c (Bld) [Mass fraction]6.20 %Invalid Interpretation Code4.3-6.3B[facility] Hematocrit (Bld) [Volume fraction]48.40 %Invalid Interpretation Code37.8-51.0[facility] Hemoglobin (Bld) [Mass/Vol]16.10 g/dLInvalid Interpretation Code12.6-17.0[facility] MCH (RBC) [Entitic mass]32.40 pgInvalid Interpretation Code25.7-33.8B[facility] MCHC (RBC) [Mass/Vol]33.30 g/dLInvalid Interpretation Code32.0-36.0[facility] MCV (RBC) [Entitic vol]97.40 fLInvalid Interpretation Code81.0-100.2B[facility] Platelet mean volume (Bld) [Entitic vol]10.10 fLInvalid Interpretation Code8.3-11.5B[facility] [employer] Platelets (Bld) [#/Vol]214.0 10*3/uLInvalid Interpretation Utga749-179Spxbdpjpo [place] [facility] RBC (Bld) [#/Vol]4.970 10*6/uLInvalid Interpretation Code4.34-5.61[facility] WBC (Bld) [#/Vol]5.90 10*3/uLInvalid Interpretation Code3.9-10.3B[facility] No Panel Informationon 86-74-0169664.0 mg/dLInvalid Interpretation CodeFairfield Medical Center [facility] No Specimen, Unable to VoidInvalid Interpretation Code [facility] No Panel Informationon 08-25-2074Hkzhzklj Retinal Eye ExamInvalid Interpretation CodeMacheen Laboratory - Chemistry and Chemistry - challengeon 43-00-6325Utsaxcu [Mass/Vol]4.60 g/dLInvalid Interpretation Code3.7-4.5BHassle.com Albumin/Globulin [Mass ratio]1.4 {ratio}Invalid Interpretation Code1.0-2.4Bmayo clinic health system– red cedarMZL [employer] ALP [Catalytic activity/Vol]75.0 U/LInvalid Interpretation Uwzl57-144UcdzxvijvMacheen ALT [Catalytic activity/Vol]41.0 U/LInvalid Interpretation Code0-50Macheen Anion gap [Moles/Vol]14 mmol/LInvalid Interpretation Wqca67-33RfxzmsmmvMacheen AST [Catalytic activity/Vol]26.0 U/LInvalid Interpretation Code0-40Orphazyme Bilirubin [Mass/Vol]0.40 mg/dLInvalid Interpretation Code0.0-1.0Macheen Bilirubin Ql (U)NegativeInvalid Interpretation Code NegativeMacheen Calcium [Mass/Vol]10.10 mg/dLInvalid Interpretation [email or web address] Chloride [Moles/Vol]99.0 mmol/LInvalid Interpretation Ggyr385-916FvtxsdxviOrphazyme CO2 [Moles/Vol]28.0 mmol/LInvalid Interpretation Code 23-30Orphazyme Creatinine [Mass/Vol]0.90 mg/dLInvalid Interpretation [email or web address] GFR/1.73 sq M.predicted among non-blacks MDRD (S/P/Bld) [Vol rate/Area]87 mL/min/{1.73_m2}Invalid Interpretation CodeFairfield [facility] Center [facility] Glucose [Mass/Vol]135.0 mg/dLInvalid Interpretation Nkvy64-521Mjkhvsxfh Cloze Ketones Ql (U)NegativeInvalid Interpretation Code NegativeColfax iHandle [facility] Parathyrin.intact [Mass/Vol]22 pg/mLInvalid Interpretation Jbss20-31GjmbtalbhCeeLite Technologies pH (U)6 [pH]Invalid Interpretation Code5.0-9.0[place] iHandle [facility] Phosphate [Mass/Vol]3.50 mg/dLInvalid Interpretation Code2.5-4.5[facility] iHandle [facility] Potassium [Moles/Vol]4.50 mmol/LInvalid Interpretation Code3.5-5.3[facility] Cloze Protein [Mass/Vol]7.80 g/dLInvalid Interpretation Code 6.3-7.9[facility] iHandle [facility] Sodium [Moles/Vol]136.0 mmol/LInvalid Interpretation Fqzs140-470JaqeecnmiCyntellect [facility] Specific gravity (U) [Rel density]1.015Invalid Interpretation Code1.003-1.030[place] CenterCeeL[facility] Technologies Urea nitrogen [Mass/Vol]15.0 mg/dLInvalid Interpretation Code7-25[place] CenterCeeL[facility] Urea nitrogen/Creatinine [Mass ratio]17 mg/mgInvalid Interpretation Code6-20[place] CenterCeeL[facility] Technologies Urobilinogen (U) [Mass/Vol]normalInvalid Interpretation CodenormalDallas CenterCyntellect [facility] Laboratory - Hematology and Cell countson 03-19-2021 Erythrocyte distribution width (RBC) [Ratio]12.80 %Invalid Interpretation Code 11.5-15.5Bwenatchee valley medical centerMyhomepayge, Inc. HbA1c (Bld) [Mass fraction]6.40 %Invalid Interpretation Code4.3-6.3[facility] iHandle [facility] Hematocrit (Bld) [Volume fraction]49.0 %Invalid Interpretation Code37.8-51.0[place] CenterCeeL[facility] Technologies Hemoglobin (Bld) [Mass/Vol]16.60 g/dLInvalid Interpretation Code12.6-17.0[place] CenterCeeL[facility] Technologies Hemoglobin Ql (U)NegativeInvalid Interpretation Code NegativeDallas CenterCyntellect [facility] MCH (RBC) [Entitic mass]32.10 pgInvalid Interpretation Code25.7-33.8Bmayo clinic health system– red cedarMZL [employer] MCHC (RBC) [Mass/Vol]33.90 g/dLInvalid Interpretation Code32.0-36.0[place] CenterCyntellect [facility] MCV (RBC) [Entitic vol]94.80 fLInvalid Interpretation Code81.0-100.2Bmayo clinic health system– red cedarbeBetter Health [facility] Platelet mean volume (Bld) [Entitic vol]9.60 fLInvalid Interpretation [email or web address] Platelets (Bld) [#/Vol]257.0 10*3/uLInvalid Interpretation Rdiq547-972OxnuxnwhbCeeLite Technologies RBC (Bld) [#/Vol]5.170 10*6/uLInvalid Interpretation Code4.34-5.61BlMacheen WBC (Bld) [#/Vol]6.90 10*3/uLInvalid Interpretation Code3.9-10.3BOhio [facility] Laboratory - Specimen informationon 90-27-7488Dxpgbkr (U)clearInvalid Interpretation CodeClearBOhio State University [facility]ner [facility] Color (U)yellowInvalid Interpretation Codeyellow [facility] [employer] [facility] Laboratory - Urinalysison 74-10-4440Kbieodg Test strip (U) [Mass/Vol]4+Invalid Interpretation CodeNegativeFairfield Medical Center Th[facility] Solo [facility] Leukocyte esterase Test strip Ql (U)NegativeInvalid Interpretation CodeNegativeFairfield Medical Center [facility] Nitrite Ql (U)NegativeInvalid Interpretation Code NegativeFairfield Medical Center Th[facility] Solo [facility] Protein Ql (U)NegativeInvalid Interpretation Code NegativeDallas CenterQuepasa [place] [facility] No Panel Informationon 02-91-9363822.0 mg/dLInvalid Interpretation CodeDallas CenterCyntellect [facility] patient's meter broke and doesn't have new one yet Invalid Interpretation Tqwz56-367Sbkgtdyei [place] [facility] Laboratory - Chemistry and Chemistry - challengeon 03-08-9552Omjosqi (U) [Mass/Vol]< 12.0Invalid Interpretation Code< 17.0 ug/mL [place] [facility] Albumin [Mass/Vol]4.40 g/dLInvalid Interpretation Code 3.7-4.5[facility] iHandle [facility] Albumin/Globulin [Mass ratio]1.5 {ratio}Invalid Interpretation Code1.0-2.4[facility] iHandle [facility] ALP [Catalytic activity/Vol]69.0 U/LInvalid Interpretation Hjjl03-963Hedzxkslb Cloze ALT [Catalytic activity/Vol]30.0 U/LInvalid Interpretation Code0-50[place] [facility] Anion gap [Moles/Vol]13 mmol/LInvalid Interpretation Autp52-73Vylkkgriw Cloze AST [Catalytic activity/Vol]20.0 U/LInvalid Interpretation Code0-40[place] [facility] Bilirubin [Mass/Vol]0.40 mg/dLInvalid Interpretation Code0.0-1.0[place] CenterCyntellect [facility] Bilirubin Ql (U)NegativeInvalid Interpretation Code NegativeDallas CenterCyntellect [facility] Calcium [Mass/Vol]9.80 mg/dLInvalid Interpretation Code 8.5-10.8[facility] iHandle [facility] Chloride [Moles/Vol]98.0 mmol/LInvalid Interpretation Kmzo806-372ZwjjbvmhhCeeLite Technologies Cholesterol [Mass/Vol]207.0 mg/dLInvalid Interpretation Code0-200[place] CenterCyntellect [facility] Cholesterol in HDL [Mass/Vol]40.0 mg/dLInvalid Interpretation Buzd18-471OtokyllviCyntellect [facility] Cholesterol in LDL [Mass/Vol]100.0 mg/dLInvalid Interpretation Code0-130[place] CenterCeeLite Technologies Cholesterol in VLDL [Mass/Vol]67.0 mg/dLInvalid Interpretation Code0-39[place] CenterCeeL[facility] Technologies Cholesterol.total/Cholesterol in HDL [Mass ratio]5 {ratio}Invalid Interpretation CodeDallas CenterCeeLite Technologies CO2 [Moles/Vol]29.0 mmol/LInvalid Interpretation Code 23-30[place] CenterCyntellect [facility] Creatinine (U) [Mass/Vol]31.90 mg/dLInvalid Interpretation CodeNot Estab. mg/dLBlouis [facility] iHandle [facility] Creatinine [Mass/Vol]1.0 mg/dLInvalid Interpretation Code0.5-1.5[facility] iHandle [facility] GFR/1.73 sq M.predicted among non-blacks MDRD (S/P/Bld) [Vol rate/Area]77 mL/min/{1.73_m2}Invalid Interpretation CodeDallas CenterCeeLite Technologies Glucose [Mass/Vol]113.0 mg/dLInvalid Interpretation Eipe72-138ViyfjcmgwCeeLite Technologies Ketones Ql (U)NegativeInvalid Interpretation Code NegativeDallas CenterCeeLite Technologies pH (U)6 [pH]Invalid Interpretation Code5.0-9.0[place] CenterCyntellect [facility] Potassium [Moles/Vol]4.40 mmol/LInvalid Interpretation Code3.5-5.3[facility] iHandle [facility] Prostate specific Ag [Mass/Vol]0.76 ng/mLInvalid Interpretation Code0.00-4.00[place] CenterCyntellect [facility] Protein [Mass/Vol]7.30 g/dLInvalid Interpretation Code 6.3-7.9[facility] Cloze Sodium [Moles/Vol]136.0 mmol/LInvalid Interpretation Yyyb810-945VziaavlseCeeLite Technologies Specific gravity (U) [Rel density]1.005Invalid Interpretation Code1.003-1.030[place] CenterCeeLite Technologies Triglyceride [Mass/Vol]334.0 mg/dLInvalid Interpretation Bcwv68-462Gbbojkosu iHandle [facility] Urea nitrogen [Mass/Vol]15.0 mg/dLInvalid Interpretation Code7-25[place] [facility] Urea nitrogen/Creatinine [Mass ratio]15 mg/mgInvalid Interpretation Code6-20[place] [facility] Urobilinogen (U) [Mass/Vol]normalInvalid Interpretation CodenormalCol[place] iHandle [facility] Laboratory - Hematology and Cell countson 12-23-2020 Erythrocyte distribution width (RBC) [Ratio]12.90 %Invalid Interpretation Code 11.5-15.5[facility] iHandle [facility] HbA1c (Bld) [Mass fraction]6.30 %Invalid Interpretation Code4.3-6.3[facility] iHandle [facility] Hematocrit (Bld) [Volume fraction]48.0 %Invalid Interpretation Code37.8-51.0[place] CenterCyntellect [facility] Hemoglobin (Bld) [Mass/Vol]16.40 g/dLInvalid Interpretation Code12.6-17.0[place] CenterCyntellect [facility] Hemoglobin Ql (U)NegativeInvalid Interpretation Code NegativeDallas CenterCyntellect [facility] MCH (RBC) [Entitic mass]32.20 pgInvalid Interpretation Code25.7-33.8Bwenatchee valley medical centerNemedia [facility] MCHC (RBC) [Mass/Vol]34.20 g/dLInvalid Interpretation Code32.0-36.0[place] CenterCyntellect [facility] MCV (RBC) [Entitic vol]94.10 fLInvalid Interpretation Code81.0-100.2Bwenatchee valley medical centerMyhomepayge, Inc. Platelet mean volume (Bld) [Entitic vol]9.30 fLInvalid Interpretation Code8.3-11.5[facility] iHandle [facility] Platelets (Bld) [#/Vol]265.0 10*3/uLInvalid Interpretation Mtyn019-109Kfbjihhgk [place] Th[facility] RBC (Bld) [#/Vol]5.10 10*6/uLInvalid Interpretation Code4.34-5.61[facility] WBC (Bld) [#/Vol]7.30 10*3/uLInvalid Interpretation Code3.9-10.3[facility] iHandle [facility] Laboratory - Specimen informationon 88-39-9872Qvpgmiv (U)clearInvalid Interpretation CodeClearBOhio State University [facility] Th[facility] Solo [facility] Collection time (Andrei) [Date/time]10:56 amInvalid Interpretation CodeCol[place] iHandle [facility] Color (U)yellowInvalid Interpretation Codeyellow [facility] Laboratory - Urinalysison 74-90-7017Sqmefpl Test strip (U) [Mass/Vol]4+Invalid Interpretation CodeNegativeFairfield Medical Center Th[facility] Solo [facility] Leukocyte esterase Test strip Ql (U)NegativeInvalid Interpretation CodeNegativeFairfield Medical Center Th[facility] Solo [facility] Nitrite Ql (U)NegativeInvalid Interpretation Code NegativeCol[place] iHandle [facility] Protein Ql (U)NegativeInvalid Interpretation Code NegativeDallas CenterCyntellect [facility] No Panel Informationon 95-24-6318294.0 mg/dLInvalid Interpretation CodeDallas CenterCyntellect [facility] Laboratory - Chemistry and Chemistry - challengeon 07-68-1464Assmjgi/Globulin [Mass ratio]1.2 {ratio}Invalid Interpretation Code 1.0-2.4Bmayo clinic health system– red cedarbeBetter Health [facility] Bilirubin Ql (U)NegativeInvalid Interpretation Code NegativeD[place] CenterCeeLite Technologies Ketones Ql (U)NegativeInvalid Interpretation Code NegativeD[place] CenterCeeLite Technologies Urobilinogen (U) [Mass/Vol]normalInvalid Interpretation CodenormalDallas CenterCyntellect [facility] Laboratory - Urinalysison 41-31-2687Ijvynbffi esterase Test strip Ql (U)NegativeInvalid Interpretation CodeNegativeD[place] CenterCyntellect [facility] Nitrite Ql (U)NegativeInvalid Interpretation Code NegativeD[place] CenterCyntellect [facility] Protein Ql (U)NegativeInvalid Interpretation Code NegativeD[place] CenterCyntellect [facility] Metabolic Panelon 17-62-2834Ynexgkd [Mass/Vol]4.40 g/dL Invalid Interpretation Code3.7-4.5Bmayo clinic health system– red cedarbeBetter Health [facility] ALP [Catalytic activity/Vol]81.0 U/LInvalid Interpretation Ypbw87-417OwfnybptfCyntellect [facility] ALT [Catalytic activity/Vol]57.0 U/LInvalid Interpretation Code0-50[place] CenterCyntellect [facility] Anion gap [Moles/Vol]13 mmol/LInvalid Interpretation Wwkb41-12GmtysnsnrCeeLite Technologies AST [Catalytic activity/Vol]36.0 U/LInvalid Interpretation Code0-40Macheen Bilirubin [Mass/Vol]0.60 mg/dLInvalid Interpretation Code0.0-1.0[place] CenterCeeLite Technologies Calcium [Mass/Vol]11.0 mg/dLInvalid Interpretation Code [email or web address] Chloride [Moles/Vol]97.0 mmol/LInvalid Interpretation Xcss731-788EdmcbysemCeeLite Technologies CO2 [Moles/Vol]27.0 mmol/LInvalid Interpretation Code 23-30[place] CenterCeeLite Technologies Creatinine [Mass/Vol]1.60 mg/dLInvalid Interpretation [email or web address] GFR/1.73 sq M predicted among non-blacks MDRD (S/P/Bld) [Vol rate/Area]45 mL/min/{1.73_m2}Invalid Interpretation CodeDallas CenterCeeLite Technologies Glucose [Mass/Vol]148.0 mg/dLInvalid Interpretation Jijm77-225TuhwmbuqnMacheen Glucose [Mass/Vol]Patient did not bring strips for abpzc66-901PwmzhofkxCeeLite Technologies HbA1c (Bld) [Mass fraction]6.90 %Invalid Interpretation [email or web address] Potassium [Moles/Vol]4.90 mmol/LInvalid Interpretation [email or web address] Protein [Mass/Vol]8.20 g/dLInvalid Interpretation Code [email or web address] Sodium [Moles/Vol]132.0 mmol/LInvalid Interpretation Xnfn030-802XdhpadwpaMacheen Urea nitrogen [Mass/Vol]23.0 mg/dLInvalid Interpretation Code7-25Macheen Urea nitrogen/Creatinine [Mass ratio]14 mg/mgInvalid Interpretation Code6-20Macheen No Panel Informationon 07-48-9435Iewhbub did not bring strips for meterInvalid Interpretation Agfo98-572GlbbqnmlgCeeLite Technologies Otheron 32-89-1176Jcbpxzc/Globulin [Mass ratio]1.2 (calc)1.0-2.4[facility] Cloze Bilirubin Ql (U)NegativeNegativeCol[place] Cloze Glucose Test strip (U) [Mass/Vol]4+Invalid Interpretation CodeNegativeDallas CenterCeeLite Technologies Hemoglobin Ql (U)TraceInvalid Interpretation Code NegativeDallas CenterCeeLite Technologies Nitrite Ql (U)NegativeNegNovant Health Presbyterian Medical CenterCeeLite Technologies pH (U)5 [pH]Invalid Interpretation Code5.0-9.0[place] CenterCeeLite Technologies Protein Ql (U)NegativeNegativeD[place] CenterCeeLite Technologies Urobilinogen Test strip (U) [Mass/Vol]normalnormal [place] Cloze 151.0 mg/dLInvalid Interpretation CodeDallas CenterCeeLite Technologies Urinalysison 53-35-8816Dmgvtls (U)ClearInvalid Interpretation CodeClearBlouis stokes cle[facility] Cloze Color (U)yellowInvalid Interpretation Codeyellow [place] Cl[employer]ze Ketones Ql (U)NegativeNegativeDallas CenterCeeLite Technologies Leukocyte esterase Test strip Ql (U)NegativeNegative [facility] Specific gravity (U) [Rel density]1.015Invalid Interpretation Code1.003-1.030[place] CenterCeeLite Technologies Coding Summaryon 94-76-9964Fwghab SummaryCODING DATE: 06/20/2020 [facility] STATUS: Home PAYOR: Medicare APC [...] By: Estefany Aguilera Date Saved: 06/20/2020 12:49 pmNAultman HospitalCoding SummaryCODING DATE: 06/20/2020 [facility] STATUS: Home PAYOR: Medicare APC [...] By: Estefany Aguilera Date Saved: 06/20/2020 12:47 [facility].Auto Diff 1on 06-17-2020 Auto [place] %7 %Normal1-12[facility] HamiltonComment on above:Performed By: #### [id number], 4546923, 64935216, [id number], [id number] #### [facility] (DEFAULT) [address] [place] [address] 49442Itsw Abs#0.0 b63Xhzlmh6.0-0.2MCoshocton Regional Medical CenterComment on above:Performed By: #### [id number], 9155517, 02487985, [id number], [id number] #### [facility] (DEFAULT) [address] [place] [address] 00342Gqvceraiv/100 WBC (Bld)0.5 %Normal0.2-2.0[facility] Comment on above:Performed By: #### [id number], 1755583, 82179717, [id number], [id number] #### [facility] (DEFAULT) [address] [place] [address] 65535Lkw Abs#0.2 y85Vndejg7.0-0.4[facility] HospitalComment on above:Performed By: #### [id number], 2299046, 75240143, [id number], [id number] #### [facility] (DEFAULT) [address] [place] [address] 94494Edmfkjxrmbp/100 WBC (Bld)2.3 %Normal0.9-4.0[facility] HospitalComment on above:Performed By: #### 5223522, 6327643, 80004226, [id number], [id number] #### [facility] (DEFAULT) [address] [place] [address] 29631Vfkgtoucslw (Bld) [#/Vol]2.3 l06Uazpah4.3-2.9[facility] HospitalComment on above:Performed By: #### [id number], 6425984, 23047197, [id number], [id number] #### [facility] (DEFAULT) [address] [place] [address] 69570Jncafyvaokd/100 WBC (Bld)25 %Bgbwrq25-12Esazyrmw Hospital Comment on above:Performed By: #### 7438999, 4677641, 57249470, [id number], [id number] #### [facility] (DEFAULT) [address] [place] [address] 79815Okns Abs#0.7 l62Cuparx7.0-0.8[facility] HospitalComment on above:Performed By: #### 7824414, 6252212, 65499795, [id number], [id number] #### [facility] (DEFAULT) [address] [place] [address] 09308Qplv Abs#6.0 p92Xkgssg6.5-9.2Mwilson health HospitalComment on above:Performed By: #### 0800349, 1678040, 06591565, [id number], [id number] #### [facility] (DEFAULT) [address] [place] [address] 71068Dhygbvffsks/100 WBC (Bld)65 %Dodzew03-02Ulyvbpcu Hospital Comment on above:Performed By: #### 1701031, 8751853, 74703549, [id number], [id number] #### [facility] (DEFAULT) [address] [place] [address] 72781.QC Respiratory Panel 2.1 (BioFire)on 24-41-9417Vnrwatnn Control-Resp Panel 2.1(BioFire)PassACMC Healthcare System GlenbeighComment on above:Order Comment: Ordered by Discern. [[email or web address]]Performed By: #### [id number] #### [facility] (DEFAULT) [address] [place] [address] 73830KIB w/ Auto Diffon 16-09-4094Nydjuhgtiqx distribution width (RBC) [Ratio]12.9 %Nekxnm40.5-15.0[facility] HamiltonComment on above: Performed By: #### 2544204, 4259510, 11303485, [id number], [id number] #### [facility] (DEFAULT) [address] [place] [address] 95512Reqinfzlms (Bld) [Volume fraction]45.1 %Mrihog45.8-51.9 [facility] HamiltonComment on above:Performed By: #### 3064289, 1007297, 66591342, [id number], [id number] #### [facility] (DEFAULT) [address] [place] [address] 27202Lyibiyvdma (Bld) [Mass/Vol]15.6 g/cQBysxvw38.8-17.7 [facility] HamiltonComment on above:Performed By: #### 8495372, 2467163, 25152045, [id number], [id number] #### [facility] (DEFAULT) [address] [place] [address] 35996Tco Diff?AutoNormalAkron Children'S Hospital HospitalComment on above: Performed By: #### 3873439, 0602451, 79904187, [id number], [id number] #### [facility] (DEFAULT) [address] [place] [address] 18608QWS (RBC) [Entitic mass]32 dlImsbrg68-04Jmosfxdj Hospital Comment on above:Performed By: #### 3239359, 2826875, 95106558, [id number], [id number] #### [facility] (DEFAULT) [address] [place], [place] [address]HC (RBC) [Mass/Vol]35 g/pFSswube13-78Mjgbzaxl Hospital Comment on above:Performed By: #### 4654230, 3667720, 06553069, 6457312849, [id number] #### [facility] (DEFAULT) [address] [place] [address] 25522AHY (RBC) [Entitic vol]93 yLMjklxk26-878Sobxasxw Hospital Comment on above:Performed By: #### 4848012, 8119986, 99019481, [id number], [id number] #### [facility] (DEFAULT) [address] [place] [address] 48735Rsznmwdu mean volume (Bld) [Entitic vol]9.9 fLNormal 6.3-10.2Mwilson health HospitalComment on above:Performed By: #### 9648339, 4855765, 09328991, [id number], [id number] #### [facility] (DEFAULT) [address] [place] [address] 63932Qeesqnztd (Bld) [#/Vol]277 m28Drctjw801-519Rfjwcgzv HospitalComment on above:Performed By: #### 0274521, 5462321, 09337380, 1255759949, [id number] #### [facility] (DEFAULT) [address] [place] [address] 46471USI (Bld) [#/Vol]4.83 k45Kyiwwb3.70-5.30MaRegency Hospital [facility] East Comment on above:Performed By: #### 8315607, 7763963, 86347829, [id number], [id number] #### [facility] (DEFAULT) [address] [place] [address] 12715XSV (Bld) [#/Vol]9.3 y99Zjocgq4.5-10.5Mapeoples hospital Hospital Comment on above:Performed By: #### 2130177, 6374025, 54722821, [id number], [id number] #### [facility] (DEFAULT) [address] [place] [address] 94364TFI Standardon 03-91-2586qHPZ Non AA>60[facility] Comment on above:Performed By: #### 4660208, 0029131, 18899432, [id number], [id number] #### [facility] (DEFAULT) [address] [place] [address] 78089eDPZ AA>60[facility] HamiltonComment on above:Result Comment: Chronic Kidney disease could be indicated at eGFRs of less than 60 ml/min/1.73m2. Kidney Failure is indicated at less than 15 ml/min/1.73m2 Performed By: #### 0519208, 1634801, 36421387, [id number], [id number] #### [facility] (DEFAULT[facility] [address] [place] [address] 47446Dijecyy [Mass/Vol]4.0 g/dLNormal3.5-5.0[facility] Comment on above:Performed By: #### 1337259, 5075558, 38360101, [id number], [id number] #### [facility] (DEFAULT) [address] [place] [address] 55543Cpapbmf/Globulin [Mass ratio]1.1 {ratio}Low1.4-2.6MCoshocton Regional Medical CenterComment on above:Performed By: #### 9276740, 4121137, 65148287, [id number], [id number] #### [facility] (DEFAULT) [address] [place] [address] 12292Jqt Phos70 IU/QAklcyv10-04Uzrgvonm HospitalComment on above:Performed By: #### 7885251, 6502125, 32561839, [id number], [id number] #### [facility] (DEFAULT) [address] [place] [address] 33770QXT/SGPT42.0 IU/TVbnqbe69.0-63.0[facility] HospitalComment on above:Performed By: #### 3952027, 3609322, 10050851, [id number], [id number] #### [facility] (DEFAULT) [address] [place] [address] 97760Ktmpg gap [Moles/Vol]13.0 mmol/LNormal5.0-19.0[facility] HospitalComment on above:Performed By: #### 2786830, 4026048, 36305319, [id number], [id number] #### [facility] (DEFAULT) [address] [place] [address] 65215HDP/SGOT27 IU/UBytirp56-47Ufedxlbo HospitalComment on above:Performed By: #### 3827390, 6007855, 92103406, [id number], [id number] #### [facility] (DEFAULT) [address] [place] [address] 15560Dkok Total0.7 mg/dLNormal0.3-1.2Magrsamaritan hospital HospitalComment on above:Performed By: #### 9486591, 2379863, 08601627, [id number], [id number] #### [facility] (DEFAULT) [address] [place] [address] 07411Psnnivf [Mass/Vol]9.0 mg/dLNormal8.9-10.3Magrsamaritan hospital Hospital Comment on above:Performed By: #### 9421815, 8880856, 92075728, [id number], [id number] #### [facility] (DEFAULT) [address] [place] [address] 53395Grwhjpxb [Moles/Vol]102 mmol/VCqyvdx796-276Vhkkvfne HospitalComment on above:Performed By: #### [id number], 2805316, 30042738, [id number], [id number] #### [facility] (DEFAULT) [address] [place] [address] 67046EP4 [Moles/Vol]25 mmol/ZAkhubf31-90[facility] Comment on above:Performed By: #### [id number], 6376950, [id number], [id number], [id number] #### [facility] (DEFAULT) [address] [place] [address] 80961Hjbqtakwzi [Mass/Vol]0.97 mg/dLNormal0.90-1.30[facility] HospitalComment on above:Performed By: #### [id number], 7293508, [id number], [id number], [id number] #### [facility] (DEFAULT) [address] [place] [address] 26256Cmpwsief (S) [Mass/Vol]3.5 g/dLNormal1.5-4.3Mwilson health HospitalComment on above:Performed By: #### [id number], 7211493, 05724290, [id number], [id number] #### [facility] (DEFAULT) [address] [place] [address] 73743Tkypxvz [Mass/Vol]123.0 mg/iOSfmi43.0-118.0[facility] HospitalComment on above:Performed By: #### [id number], 5451434, 40567714, [id number], [id number] #### [facility] (DEFAULT) [address] [place] [address] 99829Sokhomldka [Osmolality]276 mOsm/LMwilson health HospitalComment on above:Performed By: #### [id number], 9630951, 74687505, [id number], [id number] #### [facility] (DEFAULT) [address] [place] [address] 13028Xnaxkupvf [Moles/Vol]3.6 mmol/LNormal3.6-5.1Mwil[facility] health HospitalComment on above:Performed By: #### 1457775, 5270527, 23184074, [id number], [id number] #### [facility] (DEFAULT) [address] [place] [address] 76979Nccpvhu [Mass/Vol]7.5 g/dLNormal6.5-8.1[facility] Comment on above:Performed By: #### [id number], 5937015, 58928663, [id number], [id number] #### [facility] (DEFAULT) [address] [place] [address] 59509Vzfxux [Moles/Vol]136.0 mmol/CQepdum051.0-144.0[facility] HospitalComment on above:Performed By: #### [id number], 3704332, 33483297, [id number], [id number] #### [facility] (DEFAULT) [address] [place] [address] 63380Peua nitrogen [Mass/Vol]19 mg/dLNormal8-26[facility] HospitalComment on above:Performed By: #### [id number], 1069573, 34651758, [id number], [id number] #### [facility] (DEFAULT) [address] [place] [address] 92188Utni nitrogen/Creatinine [Mass ratio]20.0 mg/mgHigh 4.6-16.2Mwilson health HospitalComment on above:Performed By: #### [id number], 9706938, 03688654, [id number], [id number] #### [facility] (DEFAULT) [address] [place] [address] 64636N-Jblzanm 34-16-2521O-Dimer0.23 mg/L FEUNormal0.19-0.50 [facility] HamiltonComment on above:Result Comment: The INNOVANCE D-Dimer assay [...] ? Liver cirrhosis ? PregnancyPerformed By: #### [id number], 9322264, 12742044, [id number], [id number] #### [facility] (DEFAULT) [address], [place] [address]YA Clinical Summaryon [id number] Clinical Summary [facility] - Emergency Department [address] [place] [address] ED Clinical Summary PERSON INFORMATION Name: GEREMIAS MELCHOR Age: 54 Years Sex: MALE : 1965 MRN: Acct#: Visit Reason: Shortness of breath; SOB Arrival: 06/17/2020 15:26:17 Discharge: 06/17/2020 17:58:00 LOS: 000 02:32 Check In: 06/17/2020 15:26:17 Checkout:06/17/2020 17:58:00 Address: [address] [place] [address] PCP: Ericka Muniz MD PROVIDER INFORMATION Provider [...] Adult Follow-Up: With: Address: When: Ericka Muniz [address] [place] [address] [facility] (1) Within 3 to 5 days DIAGNOSIS: Viral URI with cough Patient Understands: Yes - Patient/family/caregiver verbalizes understanding of instructions given Comment:[facility]ighED Note - Physicianon 38-68-1136DS Note - PhysicianPatient: GEREMIAS MELCHOR Age: 54 [...] % Auto Lymph % 25 % Auto Richland % 7 % Auto Eos % 2.3 % Auto Baso % 0.5 % Neut Abs# 6.0 x103/mcL Lymph Abs# 2.3 x103/mcL Richland Abs# 0.7 x103/mcL Eos Abs# 0.2 x103/mcL [...] and Plan Diagnosis Viral URI with cough (ZTO38-SE J06.9, Discharge, Medical) Plan Condition: Stable. Disposition: [...] [Verified on: 06/17/2020 18:26 EST] Otilia Francois [facility]ED Note-Nursingon 56-22-4154YR Note-NursingPatient arrives to the ED via private [...] still feels more short of breath than normal.[facility] Patient Education Noteon 92-03-3225VI Patient Education NoteEducation Materials Upper Respiratory Infection, [...] to help relieve symptoms, such as: ? Yvtz-ixr-xsxwaqt cold medicines. ? Cough suppressants. Coughing is [...] other clear broths. General instructions ? Take rfrm-wmz-gjohmpa and prescription medicines only as told by [...] and water are not available, use hand programs assistant. ? Avoid touching your mouth, face, eyes, [...] 12/21/2001 Document Revised: 07/05/2019 Document Reviewed: 02/10/2018 [employer] Patient Education ? 2019 Earlier [employer]. ENT Cough, Adult Coughing is a reflex [...] these instructions at home: Medicines ? Take wuxe-cqo-dpxllfj and prescription medicines only as told by [...] a condition that needs treatment. ? Take rvmo-cma-ynbtaxq and prescription medicines only as told by [...] 12/24/2011 Document Revised: 07/16/2019 Document Reviewed: 07/16/2019 [employer] Patient Education ? 2019 Earlier Media.[facility]ighED Patient Summaryon [id number] Patient SummaryK[facility]tering Health [facility] - Emergency Department [address] [place] [address] PATIENT DISCHARGE INSTRUCTIONS Patient Information Name: GEREMIAS MELCHOR Age: 54 Years Date of : 1965 Reason For Visit: Shortness of breath; SOB Arrival Time: 06/17/2020 15:26:17 Primary Care Physician: Ericka Muniz MD Attending Physician: Landon Vegas MD Comment: Visit Diagnosis: Diagnoses This Visit Shortness of breath ([id number]) Viral URI with cough (J06.9) Prescription Information: If you have been given a prescription for narcotics, seek immediate medical attention if you have any difficulty breathing or any sudden status changes such as confusion andsleepiness. If you or anyone you know is experiencing suicidal thoughts, mental health, alcohol and/or drug addiction problems; contact the [facility] 31/01 Crisis Hotline -Text 4HLIS to 574649. If you received any narcotics, sedation, or [...] legal documents With: Address: When: Ericka Muniz [address] [place], [place] [id number] Business (1) Within 3 to 5 days Medication Information: The exam and treatment you received today in the [facility] Emergency Department were for an urgent problem and are not intended as complete care. It is important for you to follow up with a doctor, nurse practitioner, or physician?s optical assistant for ongoing care. If your symptoms [...] so we can reach you if necessary. [facility] has provided you with a complete list of medications post discharge. Please inform your automatic spooler operator/provider of your visit and for further instruction [...] to help relieve symptoms, such as: ? Oshj-jiq-udqaeyp cold medicines. ? Cough suppressants. Coughing is [...] other clear broths. General instructions ? Take gmdh-dnq-lemnbhu and prescription medicines only as told by [...] and water are not available, use hand programs assistant. ? Avoid touching your mouth, face, eyes, [...] 12/21/2001 Document Revised: 07/05/2019 Document Reviewed: 02/10/2018 [employer] Patient Education ? 2020 [employer] Cough, Adult Coughing is a reflex [...] these instructions at home: Medicines ? Take qrkw-sqf-axkvycx and prescription medicines only as told by [...] a condition that needs treatment. ? Take qjsa-pie-mfckwjg and prescription medicines only as told by [...] 12/24/2011 Document Revised: 07/16/2019 Document Reviewed: 07/16/2019 [employer] Patient Education ? 2019 [employer] Viruses or Bacteria What?s got you [...] Centers for Disease Control and Prevention March 2014[facility] Extra Red 36-68-9770Aqvk CollectedLouis Stokes Cleveland VA Medical CenterComment on above: Performed By: #### [id number], 5685329, 53863923, [id number], [id number] #### [facility] (DEFAULT) [address] [place] [address]QgW [facility] 19-90-2148Cgzntssd I High Sensitivity4 pg/mL Normal<=20[facility] HamiltonComment on above:Result Comment: Male Baseline Delta 1Hr (Note pg/mL=ng/L) <20pg/mL 50-60% >20pg/mL 20% Female Baseline Delta 1Hr <15pg/mL 50-60% >15pg/mL 20% Other Baseline Delta 1Hr <18ng/mL 50-60% >18ng/mL 20% ([employer] [employer] Guidelines February 2018)Performed By: #### [id number], 8120586, 11672120, [id number], [id number] #### [facility] (DEFAULT) [address], [place] [address]Jwxkirirl Panelon 68-26-8806XGG [Catalytic activity/Vol] 50.0 U/LInvalid Interpretation CodeDallas CenterCeeLite Technologies Bilirubin [Mass/Vol]0.3 mg/dL0.0-1.0[place] CenterCeeLite Technologies HbA1c (Bld) [Mass fraction]6.6 %4.3-6.3Bwenatchee valley medical centerMyhomepayge, Inc. HbA1c (Bld) [Mass fraction]6.60 %Invalid Interpretation CodeDallas CenterCeeLite Technologies Albumin [Mass/Vol]4.50 g/dLInvalid Interpretation Code [place] [employer] AST [Catalytic activity/Vol]31.0 U/LInvalid Interpretation CodeOrphazyme No Panel Informationon 04-08-20206.6Invalid Interpretation Code4.3-6.3[facility] Cloze 0.3Invalid Interpretation Code0.0-1.0D[place] CenterCeeLite Technologies NegativeInvalid Interpretation CodeNegativeOrphazyme Otheron 40-53-2375FyfeajdiAwjsjprrRracaielkOrphazyme 4+Invalid Interpretation CodeNegativeOrphazyme ClearInvalid Interpretation CodeClearBlouis stokes cleveland va medical center Cloze normalInvalid Interpretation CodenormalDallas CenterCeeLite Technologies yellowInvalid Interpretation CodeyellowMacheen [id number] 6Invalid Interpretation Code5.0-9.0Macheen 31Invalid Interpretation Code0-40Orph[facility]yme 78Invalid Interpretation Uvec53-233VirqohnedOrphazyme 1.010Invalid Interpretation Code1.003-1.030Orphazyme 1.5Invalid Interpretation Code1.0-2.4Bmayo clinic health system– red cedarMZL [employer] 4.5Invalid Interpretation Code3.7-4.5BHassle.com 8.5Invalid Interpretation Code6.3-7.9BHassle.com 143Invalid Interpretation CodeOrphazyme 115.0 mg/dLInvalid Interpretation Code<140Macheen lsInvalid Interpretation CodeMacheen MRI KNEE RIGHT WO CONTRASTon 93-91-8302QXX KNEE RIGHT WO CONTRASTEXAMINATION: MRI OF THE [...] by: Jos Martins MD 03/25/20 Final resultNormalMercy Bristol Hospital free edge degeneration of the medial [...] ligaments, suggestive of sprains. 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 No definite tear identified. [facility], [facility]ASPIR[facility] SHOULDER RIGHT WO CONTRASTon 33-08-3979CFH SHOULDER RIGHT WO CONTRASTEXAMINATION: MRI OF THE [...] approximately 7 mm in greatest AP dimension. Wxtulkfy-xd-lcbzfq underlying supraspinatus tendinopathy and granulation tissue. Skgo-oh-mdllkwsf underlying infraspinatus tendinopathy. Mild subscapularis tendinopathy. Teres [...] 6. No paralabral cyst formation. GLENOHUMERAL JOINT: Ylrx-gl-etwbawby glenohumeral chondromalacia. Small amount of fluid in [...] dimension with tear gap measuring 1.5 cm. Oltvsvsy-ro-bwmfpw underlying supraspinatus tendinopathy and granulation tissue. Wdeo-wb-gurpotid underlying infraspinatus tendinopathy. 2. Mild subscapularis tendinopathy. 3. Mild atrophy and fatty degeneration of subscapularis. 4. Mild diffuse labral degeneration. Degenerative tearing along the superior labrum. 5. Gqez-zb-nhytdhmp glenohumeral chondromalacia. 6. Mild degenerative change of the right AC joint. 7. Prior biceps tenodesis. 8. Susceptibility artifact and marrow edema surrounding a stress riser at the anterior humeral head. Interpreted by: Rodrigo Purcell MD Signed by: Rodrigo Purcell MD 02/12/20 Final resultNoUniversity Hospitals Geneva Medical Center1. Prior rotator cuff repair. Region of full-thickness tearing of the critical zone along mid and posterior supraspinatus measuring 7 mm in greatest AP dimension with tear gap measuring 1.5 cm. Fdcuaysk-ro-vdzztx underlying supraspinatus tendinopathy and granulation tissue. Jlkp-gb-cusbaizw underlying infraspinatus tendinopathy. 2. Mild subscapularis tendinopathy. 3. Mild atrophy and fatty degeneration of subscapularis. 4. Mild diffuse labral degeneration. Degenerative tearing along the superior labrum. 5. Oqsf-le-vbkgybxt glenohumeral chondromalacia. 6. Mild degenerative change of the right AC joint. 7. Prior biceps tenodesis. 8. Susceptibility artifact and marrow edema surrounding a stress riser at the anterior humeral head.[facility], KYEXAMINATION: MRI OF THE RIGHT SHOULDER WITHOUT [...] approximately 7 mm in greatest AP dimension. Ozcvnwmo-yj-mvcfnq underlying supraspinatus tendinopathy and granulation tissue. Laqz-rw-jyvdfkzt underlying infraspinatus tendinopathy. Mild subscapularis tendinopathy. Teres [...] 6. No paralabral cyst formation. GLENOHUMERAL JOINT: Prnb-tm-bnmbruqf glenohumeral chondromalacia. Small amount of fluid in [...] grossly unremarkable in appearance. No right axillary lymphadenopathy.[facility]- [place], KYEd, [facility] Incoming Radiant Results From [employer] - 02/12/2020 3:46 PM EDT EXAMINATION: MRI [...] approximately 7 mm in greatest AP dimension. Onxcyxfp-ci-ipojai underlying supraspinatus tendinopathy and granulation tissue. Lpbd-rw-fsxjszti underlying infraspinatus tendinopathy. Mild subscapularis tendinopathy. Teres [...] 6. No paralabral cyst formation. GLENOHUMERAL JOINT: Zmon-ta-rkdjkety glenohumeral chondromalacia. Small amount of fluid in [...] dimension with tear gap measuring 1.5 cm. Calpwgjc-qr-fdrulq underlying supraspinatus tendinopathy and granulation tissue. Vogf-ot-ypqbnzrm underlying infraspinatus tendinopathy. 2. Mild subscapularis tendinopathy. 3. Mild atrophy and fatty degeneration of subscapularis. 4. Mild diffuse labral degeneration. Degenerative tearing along the superior labrum. 5. Srvu-un-pgtvueld glenohumeral chondromalacia. 6. Mild degenerative change of the right AC joint. 7. Prior biceps tenodesis. 8. Susceptibility artifact and marrow edema surrounding a stress riser at the anterior humeral head. [facility], KYGlucose, Whole Bloodon 96-31-8205Dpmclev [Mass/Vol]113 mg/dL High74 - 100 mg/dLSCCI Hospital [facility], JACQUELINEInterpretation and review of laboratory resultsAbnormalSCCI Hospital [facility], KYBUNon 76-52-5691Rcml nitrogen [Mass/Vol]16 mg/dL6 - 20 mg/dLSCCI Hospital [place], KYBUN (Urea N)on 55-44-5579Ynjy nitrogen [Mass/Vol]16 mg/dLNormal6-20[facility] Cleveland-FairhillComment on above:Performed By: #### HCT, BUN, CREG, GLU, LYTE #### [address] [place] [address] Account Services Specialist: Sandeep Mac w/GFRon 12-26-2019(cont.)NormalSelect Medical Specialty Hospital - Cleveland-FairhillComment on above:Result Comment: Average GFR for 50-59 years old: 93 mL/min/1.73sq m Chronic Kidney Disease: <60 mL/min/1.73sq m Kidney failure: <15 mL/min/1.73sq m eGFR calculated using average adult body mass. Additional eGFR calculator available at: http://www.[employer]/multiple_crcl_2011.htmPerformed By: #### HCT, BUN, CREG, GLU, LYTE #### [address] [place] [address] Account Services Specialist: Sandeep Mac [Mass/Vol]1.15 mg/dLNormal0.70-1.20 [facility] - Cleveland-FairhillComment on above:Performed By: #### HCT, BUN, CREG, GLU, LYTE #### [address] [place] [address] Account Services Specialist: Domingo Rayo MDGFR, Amer>60Normal>60[facility] Comment on above:Performed By: #### HCT, BUN, CREG, GLU, LYTE #### [address] [place] [address] Account Services Specialist: Domingo Rayo MDGFR,non Amer>60Normal>60[facility] Cleveland-FairhillComment on above:Performed By: #### HCT, BUN, CREG, GLU, LYTE #### [place] [address] [place] [address] Account Services Specialist: Domingo Rayo, MDStaging:St. Francis HospitalComment on above:Result Comment: Stage 1: Some kidney damage normal GFR Stage 2: Mild kidney damage GFR 60-89 Stage 3: Moderate kidney damage GFR 30-59 Stage 4: Severe kidney damage GFR 15-29 Stage 5: Severe kidney damage GFR <15 ESRD - chronic treatment by dialysis or transplantPerformed By: #### HCT, BUN, CREG, GLU, LYTE #### [address] [place] [address] Account Services Specialist: Domingo Rayo, SUNNYreatinine, Serumon 86-17-3278Zxpxzyreyh [Mass/Vol]1.15 mg/dL0.7 - 1.2 mg/dLSCCI Hospital [place], KYGFR >60 >60 mL/minSCCI Hospital [facility], KYGFR Non->60>60 mL/minSCCI Hospital [place], KYElectrolyte Panelon 02-63-9486Yyjqk gap [Moles/Vol]17 mmol/L9 - 17 mmol/L [facility], KYChloride [Moles/Vol]95 mmol/LLow98 - 107 mmol/[facility], KYCO2 [Moles/Vol]24 mmol/L20 - 31 mmol/[facility], KYPotassium [Moles/Vol]3.7 mmol/L3.7 - 5.3 mmol/[facility], KYSodium [Moles/Vol]136 mmol/L135 - 144 mmol/[facility], KYElectrolyteson 76-45-8571Cswrp gap [Moles/Vol]17 mmol/LNormal9-17[facility] Cleveland-FairhillComment on above:Performed By: #### HCT, BUN, CREG, GLU, LYTE #### [facility] [address] [place], [place] [address] Account Services Specialist: SUNNY Machloride [Moles/Vol]95 mmol/TJjz12-458CxgggSelect Medical Specialty Hospital - Cleveland-FairhillComment on above:Performed By: #### HCT, BUN, CREG, GLU, LYTE #### [address] [place], [facility]83 Account Services Specialist: Domingo Rayo MDCO2 [Moles/Vol]24 mmol/GLalyjz35-31Zmpkx Tiffin HospitalComment on above:Performed By: #### HCT, BUN, CREG, GLU, LYTE #### [address] [place] [id number] Account Services Specialist: Domingo Rayo MDPotassium [Moles/Vol]3.7 mmol/LNormal3.7-5.3[facility] HospitalComment on above:Performed By: #### HCT, BUN, CREG, GLU, LYTE #### [address] [place] [address] Account Services Specialist: Domingo Rayo MDSodium [Moles/Vol]136 mmol/BLshctz167-503ZdoguSelect Medical Specialty Hospital - Cleveland-FairhillComment on above:Performed By: #### HCT, BUN, CREG, GLU, LYTE #### [address] [place] [address] Account Services Specialist: Domingo Rayo MDGlucoseon 41-02-3511Mdyykjj [Mass/Vol]107 mg/dL Tajt96-25Dflhi [facility] & Medical CenterComment on above:Performed By: #### HCT, BUN, CREG, GLU, LYTE #### [address] [place] [address] Account Services Specialist: Pramod Mac, randomon 50-36-7703Selhmwm [Mass/Vol]107 mg/sSCtof15 - 99 mg/dLCleveland Clinic Hillcrest Hospital JACQUELINEHematocriton 88-62-8647Hkzlbgouxe (Bld) [Volume fraction]47.4 %Nlqwwi07.7-50.3[facility] Bellevue HospitalComment on above:Performed By: #### HCT, BUN, CREG, GLU, LYTE #### [address] [place] [address] Account Services Specialist: Domingo Rayo MDHematocrisandra (Bld) [Volume fraction]47.4 %40.7 - 50.3 %[place], KYMetabolic Panelon 90-09-8299NXT/1.73 sq M predicted among non-blacks MDRD (S/P/Bld) [Vol rate/Area][facility] on above:Average GFR for 50-59 years old: 93 mL/min/1.73sq m Chronic Kidney Disease: <60 mL/min/1.73sq m Kidney failure: <15 mL/min/1.73sq m eGFR calculated using average adult body mass. Additional eGFR calculator available at: http://www.[employer]/Annexon_crcl_2012.htm Stage 1: Some kidney damage normal GFR Stage 2: Mild kidney damage GFR 60-89 Stage 3: Moderate kidney damage GFR 30-59 Stage 4: Severe kidney damage GFR 15-29 Stage 5: Severe kidney damage GFR <15 ESRD - chronic treatment by dialysis or transplant Otheron 82-89-9216Fvehmefafdhuaq and review of laboratory resultsAbnormElyria Memorial Hospital, JACQUELINECOVID-19on 89-41-8973IPDM-CoV-2Not DetectedNot [place], KYCombronson battle creek hospital on above: The specimen is NEGATIVE for SARS-CoV-2, the novel coronavirus associated with COVID-19. A negative result does not rule out COVID-19. This test has been authorized by the FDA under an Emergency Use Authorization (EUA) for use by authorized laboratories. Fact sheet for Healthcare Providers: https://www.fda.gov/media/885700/download Fact sheet for Patients: https://www.fda.gov/media/031117/download METHODOLOGY: RT-PCR SARS-CoV-2, PCRSCCI Hospital [facility], ZAFBXS-SaY-7, RapidMer[facility] .NASOPHARYNGEAL SWABSCCI Hospital [facility], LFSGWQ-YsW-8xz 28-33-1960BDEW-CoV-2,Rapid [facility] on above:Performed By: #### COVID #### [facility] [address] [place] [address] Account Services Specialist: Sam Jacobs MD [address] [place] [address] Account Services Specialist: LORENA MacOUHKKG-PxO-1GzglodPlbcgParkview Health Bryan HospitalComment on above:Performed By: #### COVID #### [place] [id number] [place] [address] Account Services Specialist: Sam Jacobs MD [facility] [address] [place] [address] [address] [place] [address] Account Services Specialist: Doni Macot DetectedNormalNOTDEProMedica Toledo HospitalCombronson battle creek hospital on above:Result Comment: The specimen is NEGATIVE for SARS-CoV-2, the novel coronavirus associated with COVID-19. A negative result does not rule out COVID-19. This test has been authorized by the FDA under an Emergency Use Authorization (EUA) for use by authorized laboratories. Fact sheet for Healthcare Providers: https://www.fda.gov/media/646300/download Fact sheet for Patients: https://www.fda.gov/media/439722/download METHODOLOGY: RT-PCRPerformed By: #### COVID #### [facility] [address] [place] [address] Account Services Specialist: Sam Jacobs MD [address] [place] [id number] Account Services Specialist: Domingo Rayo MDEKG 12 Lead 99-78-1108Vossgh Xlnp99TELVrkvs Health- [place], KYP Ocjd17ufheuctWniee Health- [place], KYP-R Pqldcwun885 msMercy Health- [place], KYQ-T Oirwbwjh399 msMercy Health- [place], KYQRS Jvgwdzvk05 msMercy Health- [place], KYQTc Calculation (Rosalva)445 msMercy Health- [place], KYR Gcyr37roiteelDvelx Health- [place], KYT Acyo26dqjszzaSdsxo Health- [place], KYVentricular Lmda44MCUEvwsv Health- [place], KYNormal sinus rhythm Normal ECG No previous ECGs available Confirmed by Federico Burks MD ([id number]) on 12/24/2019 4:59:35 [facility] JACUQELINEBrett Falcon Incoming Ekg Results From [employer] - 12/24/2019 4:59 PM EDT Normal sinus rhythm Normal ECG No previous ECGs available Confirmed by Federico Burks MD ([id number]) on 12/24/2019 4:59:35 PMSCCI Hospital [facility], JACQUELINE RGPV-HpB-6mz 96-32-8317USUP-CoV-2 Source.NASOPHARYNGEAL SWABNoUniversity Hospitals Geneva Medical CenterComment on above:Performed By: #### COVID #### [facility] [employer] [address] [place] [address] Account Services Specialist: Sam Jacobs MD [facility] [address] [facility] [place] [address] Account Services Specialist: Domingo Rayo MDLaboratory - Chemistry and Chemistry - challenge on 51-43-8350Ofmsjjtwx Ql (U)NegativeInvalid Interpretation CodeNegative [place] [facility] Urobilinogen (U) [Mass/Vol]normalInvalid Interpretation CodenormalMacheen Laboratory - Hematology and Cell countson 12-20-2019 Hemoglobin Ql (U)NegativeInvalid Interpretation CodeNegativeOrphazyme Laboratory - Urinalysison 19-31-6228Mjestdgxz esterase Test strip Ql (U)NegativeInvalid Interpretation CodeNegativeOrphazyme Nitrite Ql (U)NegativeInvalid Interpretation Code NegativeOrphazyme Protein Ql (U)NegativeInvalid Interpretation Code NegativeOrphazyme Metabolic Panelon 94-68-8454Gewtd gap [Moles/Vol]20 mmol/LInvalid Interpretation Mpft05-72AletauyhzOrphazyme Calcium [Mass/Vol]9.10 mg/dLInvalid Interpretation Code 8.5-10.8[facility] iHandle [facility] Chloride [Moles/Vol]97.0 mmol/LInvalid Interpretation Qbey713-976[place] [employer] [facility] CO2 [Moles/Vol]23.0 mmol/LInvalid Interpretation Code 23-30[place] iHandle [facility] Creatinine [Mass/Vol]1.0 mg/dLInvalid Interpretation Code0.5-1.5[facility] iHandle [facility] GFR/1.73 sq M predicted among non-blacks MDRD (S/P/Bld) [Vol rate/Area]78 mL/min/{1.73_m2}Invalid Interpretation CodeCol[place] iHandle [facility] Glucose [Mass/Vol]90.0 mg/dLInvalid Interpretation Code 80-117[place] CenterCyntellect [facility] HbA1c (Bld) [Mass fraction]6.80 %Invalid Interpretation Code4.3-6.3[facility] iHandle [facility] Potassium [Moles/Vol]4.10 mmol/LInvalid Interpretation Code3.5-5.3[facility] iHandle [facility] Sodium [Moles/Vol]136.0 mmol/LInvalid Interpretation Qujt696-504QhbjwbcwpCyntellect [facility] Urea nitrogen [Mass/Vol]16.0 mg/dLInvalid Interpretation Code7-25[place] CenterCyntellect [facility] Urea nitrogen/Creatinine [Mass ratio]16 mg/mgInvalid Interpretation Code6-20[place] CenterCyntellect [facility] Otheron 15-99-5194Nnoazlcxl Ql (U)NegativeNegative [place] iHandle [facility] Glucose Test strip (U) [Mass/Vol]4+Invalid Interpretation CodeNegativeDallas CenterCeeLite Technologies Hemoglobin Ql (U)NegativeNegativeCol[place] Nitrite Ql (U)NegativeNegative[place] pH (U)5 [pH]Invalid Interpretation Code5.0-9.0[place] CenterCeeLite Technologies Protein Ql (U)NegativeNegativeDallas CenterCeeLite Technologies Urobilinogen Test strip (U) [Mass/Vol]normalnormal [place] [facility] 148BlanchCeeLite Technologies 148.0 mg/dLInvalid Interpretation CodeDallas CenterCeeLite Technologies Urinalysison 99-58-9894Ybthuue (U)clearInvalid Interpretation CodeClearBlanwestern medical center Cl[facility]ze Color (U)yellowInvalid Interpretation Codeyellow [place] [facility] Ketones Ql (U)1+Invalid Interpretation CodeNegative [place] [facility] Leukocyte esterase Test strip Ql (U)NegativeNegative [employer] Specific gravity (U) [Rel density]1.010Invalid Interpretation Code1.003-1.030[place] CenterCeeLite Technologies Cardiacon 05-55-2689Dstwbbyssqz [Mass/Vol]153.0 mg/dL Invalid Interpretation Code0-200[place] Cholesterol in HDL [Mass/Vol]56.0 mg/dLInvalid Interpretation Mamu81-772GugvzwuhrCeeLite Technologies Cholesterol in LDL [Mass/Vol]80.0 mg/dLInvalid Interpretation Code0-130BlanchCeeLite Technologies Triglyceride [Mass/Vol]84.0 mg/dLInvalid Interpretation Dztr54-542BxxanovxzCeeLite Technologies Metabolic Panelon 74-96-8170Logrekk [Mass/Vol]4.60 g/dL Invalid Interpretation Code3.7-4.5Bwenatchee valley medical centerNemedia [facility] ALP [Catalytic activity/Vol]75.0 U/LInvalid Interpretation Bgnn55-573NegutbvtmCeeLite Technologies ALT [Catalytic activity/Vol]54.0 U/LInvalid Interpretation Code0-50[place] CenterCeeL[facility] Technologies Anion gap [Moles/Vol]18 mmol/LInvalid Interpretation Mtla76-00GilfjkewyCeeLite Technologies AST [Catalytic activity/Vol]37.0 U/LInvalid Interpretation Code0-40[place] CenterCeeL[facility] Technologies Bilirubin [Mass/Vol]0.50 mg/dLInvalid Interpretation Code0.0-1.0[place] CenterCyntellect [facility] Calcium [Mass/Vol]9.40 mg/dLInvalid Interpretation Code 8.5-10.8Bwenatchee valley medical centerNemedia [facility] Chloride [Moles/Vol]99.0 mmol/LInvalid Interpretation Smwn457-437UscosgzqgCyntellect [facility] CO2 [Moles/Vol]27.0 mmol/LInvalid Interpretation Code 23-30[place] Creatinine [Mass/Vol]1.0 mg/dLInvalid Interpretation Code0.5-1.5BCollective Intellect [facility] GFR/1.73 sq M predicted among non-blacks MDRD (S/P/Bld) [Vol rate/Area]78 mL/min/{1.73_m2}Invalid Interpretation CodeOrphazyme Glucose [Mass/Vol]120.0 mg/dLInvalid Interpretation Gkhx99-769ErbvucvznMacheen HbA1c (Bld) [Mass fraction]6.80 %Invalid Interpretation Code4.3-6.3Bmayo clinic health system– red cedarMZL [employer] Potassium [Moles/Vol]4.0 mmol/LInvalid Interpretation Code3.5-5.3Bmayo clinic health system– red cedarMZL [employer] Protein [Mass/Vol]7.80 g/dLInvalid Interpretation Code [email or web address] Sodium [Moles/Vol]140.0 mmol/LInvalid Interpretation Pnup328-636VeqbzhhmgMacheen Urea nitrogen [Mass/Vol]13.0 mg/dLInvalid Interpretation Code7-25Or[facility]yme Urea nitrogen/Creatinine [Mass ratio]13 mg/mgInvalid Interpretation Code6-20Orphazyme Otheron 56-19-9192Yaathvm (U) [Mass/Vol]22.3Invalid Interpretation Code<17.0[place] Albumin/Globulin [Mass ratio]1.4 {ratio}Invalid Interpretation [email or web address] Cholesterol in VLDL [Mass/Vol]17.0 mg/dLInvalid Interpretation Code0-39Orphazyme Cholesterol.total/Cholesterol in HDL [Mass ratio]3 {ratio}Invalid Interpretation CodeOrphazyme 148Orphazyme 148.0 mg/dLInvalid Interpretation CodeOrphazyme 54.0 U/L0-50[place] CenterCeeLite Technologies Urinalysison 50-00-6467Hnnxzgx/Creatinine DL <= 20 mg/L (U) [Mass ratio]29.8 mg/gInvalid Interpretation Code0.0-30.0[place] CenterCeeL[facility] Technologies Creatinine (U) [Mass/Vol]74.90 mg/dLInvalid Interpretation CodeNot Estab. mg/dLBl[facility] Cloze Metabolic Panelon 71-37-7468Asayv gap [Moles/Vol]16 mmol/LInvalid Interpretation Jbve40-09MwsxeecyvCeeLite Technologies Calcium [Mass/Vol]9.70 mg/dLInvalid Interpretation Code 8.5-10.8Bwenatchee valley medical centerMyhomepayge, Inc. Chloride [Moles/Vol]100.0 mmol/LInvalid Interpretation Fvag516-635AfzmcwkzvCeeLite Technologies CO2 [Moles/Vol]27.0 mmol/LInvalid Interpretation Code 23-30[place] CenterCeeL[facility] Technologies Creatinine [Mass/Vol]1.10 mg/dLInvalid Interpretation Code0.5-1.5Bwenatchee valley medical centerMyhomepayge, Inc. GFR/1.73 sq M predicted among non-blacks MDRD (S/P/Bld) [Vol rate/Area]70 mL/min/{1.73_m2}Invalid Interpretation CodeDallas CenterCeeLite Technologies Glucose [Mass/Vol]137.0 mg/dLInvalid Interpretation Whhv69-681MffglzxevCeeLite Technologies Potassium [Moles/Vol]4.0 mmol/LInvalid Interpretation Code3.5-5.3Bmayo clinic health system– red cedarMZL [employer] Sodium [Moles/Vol]139.0 mmol/LInvalid Interpretation Omsv913-932NltkunvjmCyntellect [facility] Urea nitrogen [Mass/Vol]26.0 mg/dLInvalid Interpretation Code7-25[place] CenterCeeL[facility] Technologies Urea nitrogen/Creatinine [Mass ratio]24 mg/mgInvalid Interpretation Code6-20[place] CenterCyntellect [facility] Laboratory - Chemistry and Chemistry - challengeon 96-24-0546Bjbpylwvc Ql (U)NegativeInvalid Interpretation CodeNegativeD[place] CenterCyntellect [facility] Ketones Ql (U)NegativeInvalid Interpretation Code NegativeDallas CenterCeeLite Technologies Urobilinogen (U) [Mass/Vol]normalInvalid Interpretation CodenormalDallas CenterCyntellect [facility] Laboratory - Urinalysison 55-84-1148Ulnmzvf Ql (U) NegativeInvalid Interpretation CodeNegativeD[place] CenterCyntellect [facility] Metabolic Panelon 52-54-3344Vnsls gap [Moles/Vol]18 mmol/LInvalid Interpretation Zjwa40-88GvlnrpdvlRemicalm [facility] Calcium [Mass/Vol]9.70 mg/dLInvalid Interpretation Code 8.5-10.8Bwenatchee valley medical centerMyhomepayge, Inc. Chloride [Moles/Vol]97.0 mmol/LInvalid Interpretation Adej672-627JgiayvqwaCyntellect [facility] CO2 [Moles/Vol]25.0 mmol/LInvalid Interpretation Code 23-30[place] Creatinine [Mass/Vol]2.30 mg/dLInvalid Interpretation Code0.5-1.5Bmayo clinic health system– red cedarMZL [employer] GFR/1.73 sq M predicted among non-blacks MDRD (S/P/Bld) [Vol rate/Area]30 mL/min/{1.73_m2}Invalid Interpretation CodeMacheen Glucose [Mass/Vol]231.0 mg/dLInvalid Interpretation Dijw33-971OhccmoemuOrphazyme HbA1c (Bld) [Mass fraction]7.60 %Invalid Interpretation Code4.3-6.3BJin-Magicregency hospital companyMyhomepayge, Inc. Potassium [Moles/Vol]4.50 mmol/LInvalid Interpretation Code3.5-5.3Bwenatchee valley medical centerMyhomepayge, Inc. Sodium [Moles/Vol]135.0 mmol/LInvalid Interpretation Gtee213-427FegyppyzxMacheen Urea nitrogen [Mass/Vol]34.0 mg/dLInvalid Interpretation Code7-25[place] CenterCeeLite Technologies Urea nitrogen/Creatinine [Mass ratio]15 mg/mgInvalid Interpretation Code6-20[place] Otheron 81-43-6812Hkgiucidn Ql (U)NegativeNegative Orphazyme Gamma glutamyl transferase [Catalytic activity/Vol]72 U/LInvalid Interpretation Code7-51[place] CenterCeeLite Technologies Glucose Test strip (U) [Mass/Vol]4+Invalid Interpretation CodeNegativeOrphazyme Hemoglobin Ql (U)TraceInvalid Interpretation Code NegativeMacheen Nitrite Ql (U)NegativeNegativeMacheen pH (U)5 [pH]Invalid Interpretation Code5.0-9.0[place] Protein Ql (U)1+Invalid Interpretation CodeNegative Orphazyme Urobilinogen Test strip (U) [Mass/Vol]normalnormal [employer] 171BlanchCeeLite Technologies 171.0 mg/dLInvalid Interpretation CodeDallas CenterCeeLite Technologies Urinalysison 88-92-8320Uykauco (U)ClearInvalid Interpretation CodeClearBlanwestern medical center Cloze Color (U)yellowInvalid Interpretation Codeyellow [place] [facility] Ketones Ql (U)NegativeNegativeDallas CenterCeeLite Technologies Leukocyte esterase Test strip Ql (U)TraceInvalid Interpretation CodeNegativeD[place] CenterCeeLite Technologies Specific gravity (U) [Rel density]1.015Invalid Interpretation Code1.003-1.030[place] CenterCeeLite Technologies Cardiacon 39-08-4234Arbyiqvqcfw [Mass/Vol]164.0 mg/dL Invalid Interpretation Code0-200Or[facility]az[facility] Cholesterol in HDL [Mass/Vol]33.0 mg/dLInvalid Interpretation Fztm98-366UmskhgytbCeeLite Technologies Cholesterol in LDL [Mass/Vol]89.0 mg/dLInvalid Interpretation Code0-130Or[facility] Triglyceride [Mass/Vol]208.0 mg/dLInvalid Interpretation Zsur91-147InodgrxeyMacheen Hematologyon 69-15-5174Mdiggdmpmz (Bld) [Volume fraction]44.80 %Invalid Interpretation Code37.8-51.0Orphazyme Hemoglobin (Bld) [Mass/Vol]15.30 g/dLInvalid Interpretation Code12.6-17.0Orphazyme MCH (RBC) [Entitic mass]31.40 pgInvalid Interpretation [email or web address] MCV (RBC) [Entitic vol]92.0 fLInvalid Interpretation [email or web address] Platelets (Bld) [#/Vol]316.0 10*3/uLInvalid Interpretation Dobz046-501NdpuebszyMacheen RBC (Bld) [#/Vol]4.870 10*6/uLInvalid Interpretation Code4.34-5.61[place] WBC (Bld) [#/Vol]8.50 10*3/uLInvalid Interpretation [email or web address] Imm/Pathon 91-92-0644Necjtyqv specific Ag [Mass/Vol] 0.59 ng/mLInvalid Interpretation Code0.00-4.00[place] Laboratory - Chemistry and Chemistry - challengeon 07-03-2945Onpbwmbve Ql (U)NegativeInvalid Interpretation CodeNegativeOrphazyme Ketones Ql (U)NegativeInvalid Interpretation Code NegativeOrphazyme Urobilinogen (U) [Mass/Vol]normalInvalid Interpretation CodenormalOrphazyme Laboratory - Hematology and Cell countson 05-22-2019 Hemoglobin Ql (U)NegativeInvalid Interpretation CodeNegativeOrphazyme Laboratory - Urinalysison 45-73-6858Idvmfqjje esterase Test strip Ql (U)NegativeInvalid Interpretation CodeNegativeOrphazyme Nitrite Ql (U)NegativeInvalid Interpretation Code NegativeOrphazyme Protein Ql (U)NegativeInvalid Interpretation Code NegativeMacheen Metabolic Panelon 34-00-2007Lldsxvy [Mass/Vol]4.30 g/dL Invalid Interpretation [email or web address] ALP [Catalytic activity/Vol]79.0 U/LInvalid Interpretation Egwx89-290HdrcafzfpMacheen ALT [Catalytic activity/Vol]23.0 U/LInvalid Interpretation Code0-50[place] Anion gap [Moles/Vol]16 mmol/LInvalid Interpretation Hbso05-58ZjyevkiakMacheen AST [Catalytic activity/Vol]15.0 U/LInvalid Interpretation Code0-40Orphazyme Bilirubin [Mass/Vol]0.40 mg/dLInvalid Interpretation Code0.0-1.0[place] Calcium [Mass/Vol]9.60 mg/dLInvalid Interpretation Code [email or web address] Chloride [Moles/Vol]97.0 mmol/LInvalid Interpretation Dedz318-588BwpcsgolyOrphazyme CO2 [Moles/Vol]27.0 mmol/LInvalid Interpretation Code 23-30Orphazyme Creatinine [Mass/Vol]1.10 mg/dLInvalid Interpretation [email or web address] GFR/1.73 sq M predicted among non-blacks MDRD (S/P/Bld) [Vol rate/Area]70 mL/min/{1.73_m2}Invalid Interpretation CodeOrphazyme Glucose [Mass/Vol]101.0 mg/dLInvalid Interpretation Lcma35-999QragpmhswOrphazyme Potassium [Moles/Vol]4.30 mmol/LInvalid Interpretation [email or web address] Protein [Mass/Vol]7.60 g/dLInvalid Interpretation Code [email or web address] Sodium [Moles/Vol]136.0 mmol/LInvalid Interpretation Zqyd903-698KelvfnlfkOrphazyme Urea nitrogen [Mass/Vol]21.0 mg/dLInvalid Interpretation Code7-25Orphazyme Urea nitrogen/Creatinine [Mass ratio]19 mg/mgInvalid Interpretation Code6-20Orph[facility]yme Otheron 71-76-4283Lzkergp/Globulin [Mass ratio]1.3 {ratio}Invalid Interpretation [email or web address] Bilirubin Ql (U)NegativeNegativeOrphazyme Cholesterol in VLDL [Mass/Vol]42.0 mg/dLInvalid Interpretation Code0-39Orphazyme Cholesterol.total/Cholesterol in HDL [Mass ratio]5 {ratio}Invalid Interpretation trend.ly Collection time (Andrei) [Date/time]1:00 pmInvalid Interpretation CodeOrphazyme Erythrocyte distribution width (RBC) [Ratio]12.40 % Invalid Interpretation [email or web address] Glucose Test strip (U) [Mass/Vol]4+Invalid Interpretation CodeNegativeOrphazyme Hemoglobin Ql (U)NegativeNegativeDallas CenterCeeLite Technologies MCHC (RBC) [Mass/Vol]34.20 g/dLInvalid Interpretation Code32.0-36.0[place] CenterCeeLite Technologies Nitrite Ql (U)NegativeNegativeDallas CenterCeeLite Technologies pH (U)5 [pH]Invalid Interpretation Code5.0-9.0[place] CenterCeeL[facility] Technologies Platelet mean volume (Bld) [Entitic vol]9.40 fLInvalid Interpretation Code8.3-11.5[facility]ze Protein Ql (U)NegativeNegNovant Health Presbyterian Medical CenterCeeLite Technologies Urobilinogen Test strip (U) [Mass/Vol]normalnormal [employer] 23.0 U/L0-50[place] CenterCeeLite Technologies Urinalysison 72-84-0498Qdkcawm (U)ClearInvalid Interpretation CodeClearBlouis stokes [facility] Cl[facility]ze Color (U)yellowInvalid Interpretation Codeyellow [employer] Ketones Ql (U)NegativeNegativeDallas CenterCeeLite Technologies Leukocyte esterase Test strip Ql (U)NegativeNegative [employer] Specific gravity (U) [Rel density]1.015Invalid Interpretation Code1.003-1.030[place] CenterCeeLite Technologies Laboratory - Chemistry and Chemistry - challengeon 40-64-3333Fypgtljju Ql (U)NegativeInvalid Interpretation CodeNegNovant Health Presbyterian Medical CenterCeeLite Technologies Urobilinogen (U) [Mass/Vol]normalInvalid Interpretation CodenormalDallas CenterCeeLite Technologies Laboratory - Hematology and Cell countson 04-09-2019 Hemoglobin Ql (U)NegativeInvalid Interpretation CodeNegativeMacheen Laboratory - Urinalysison 77-34-0582Vqztwhgrx esterase Test strip Ql (U)NegativeInvalid Interpretation CodeNegativeDallas CenterCeeLite Technologies Nitrite Ql (U)NegativeInvalid Interpretation Code NegativeMacheen Metabolic Panelon 50-58-1426Cqfkhzb [Mass/Vol]4.50 g/dL Invalid Interpretation Code3.7-4.5Bwenatchee valley medical centerMyhomepayge, Inc. ALP [Catalytic activity/Vol]73.0 U/LInvalid Interpretation Mcke69-097TwlpocpjeMacheen ALT [Catalytic activity/Vol]47.0 U/LInvalid Interpretation Code0-50[place] CenterCeeLite Technologies Anion gap [Moles/Vol]17 mmol/LInvalid Interpretation Qoxp08-57JukkatzllMacheen AST [Catalytic activity/Vol]41.0 U/LInvalid Interpretation Code0-40[place] CenterCeeLite Technologies Bilirubin [Mass/Vol]0.50 mg/dLInvalid Interpretation Code0.0-1.0[place] Calcium [Mass/Vol]9.30 mg/dLInvalid Interpretation Code 8.5-10.8Bmayo clinic health system– red cedarMZL [employer] Chloride [Moles/Vol]97.0 mmol/LInvalid Interpretation Qdga274-565JelbyomxlMacheen CO2 [Moles/Vol]27.0 mmol/LInvalid Interpretation Code 23-30Orph[facility]yme Creatinine [Mass/Vol]0.90 mg/dLInvalid Interpretation [email or web address] GFR/1.73 sq M predicted among non-blacks MDRD (S/P/Bld) [Vol rate/Area]88 mL/min/{1.73_m2}Invalid Interpretation CodeMacheen Glucose [Mass/Vol]186.0 mg/dLInvalid Interpretation Zdca60-235PidldgwueOrphazyme HbA1c (Bld) [Mass fraction]7.70 %Invalid Interpretation [email or web address] Potassium [Moles/Vol]4.0 mmol/LInvalid Interpretation [email or web address] Protein [Mass/Vol]7.60 g/dLInvalid Interpretation Code [email or web address] Sodium [Moles/Vol]137.0 mmol/LInvalid Interpretation Gyxf223-093WxpeukmzdOrphazyme Urea nitrogen [Mass/Vol]16.0 mg/dLInvalid Interpretation Code7-25Orph[facility]yme Urea nitrogen/Creatinine [Mass ratio]18 mg/mgInvalid Interpretation Code6-20[place] Otheron 47-23-4672Faunbkg (U) [Mass/Vol]48.5Invalid Interpretation Code<17.0Orph[facility]yme Albumin/Globulin [Mass ratio]1.5 {ratio}Invalid Interpretation [email or web address] Bilirubin Ql (U)NegativeNegativeMacheen Gamma glutamyl transferase [Catalytic activity/Vol]52 U/LInvalid Interpretation Code7-51[place] [facility] Glucose Test strip (U) [Mass/Vol]4+Invalid Interpretation CodeNegativeDallas CenterCeeLite Technologies Hemoglobin Ql (U)NegativeNegativeColfax [facility] Nitrite Ql (U)NegativeNegativeCol[place] [facility] pH (U)6 [pH]Invalid Interpretation Code5.0-9.0[place] [facility] Protein Ql (U)1+Invalid Interpretation CodeNegative [place] [facility] Urobilinogen Test strip (U) [Mass/Vol]normalnormal [place] [employer] 174BlanchCeeL[employer] 47.0 U/L0-50[place] [facility] 174.0 mg/dLInvalid Interpretation CodeDallas CenterCyntellect [facility] Urinalysison 46-81-7733Unkgznu/Creatinine DL <= 20 mg/L (U) [Mass ratio]70.7 mg/gInvalid Interpretation Code0.0-30.0[place] [facility] [facility] Clarity (U)clearInvalid Interpretation CodeClear [place] [facility] Color (U)yellowInvalid Interpretation Codeyellow [place] [facility] [facility] Creatinine (U) [Mass/Vol]68.60 mg/dLInvalid Interpretation CodeNot Estab. mg/dLBlanwestern medical center Cloze Ketones Ql (U)2+Invalid Interpretation CodeNegative [employer] Leukocyte esterase Test strip Ql (U)NegativeNegative [employer] Specific gravity (U) [Rel density]1.010Invalid Interpretation Code1.003-1.030[place] [facility] Laboratory - Chemistry and Chemistry - challengeon 99-48-6540Isnkqullh Ql (U)NegativeInvalid Interpretation CodeNegativeCol[place] [facility] Urobilinogen (U) [Mass/Vol]normalInvalid Interpretation CodenormalCol[place] [facility] Laboratory - Hematology and Cell countson 12-08-2018 Hemoglobin Ql (U)NegativeInvalid Interpretation CodeNegativeDallas CenterCeeLite Technologies Laboratory - Urinalysison 09-53-8005Ddjfszddu esterase Test strip Ql (U)NegativeInvalid Interpretation CodeNegNovant Health Presbyterian Medical CenterCeeLite Technologies Nitrite Ql (U)NegativeInvalid Interpretation Code NegativeDallas CenterCeeLite Technologies Protein Ql (U)NegativeInvalid Interpretation Code NegativeDallas CenterCeeLite Technologies Metabolic Panelon 52-54-8342Rbumznr mass zptm130.0 mg/dLInvalid Interpretation Hkmw53-445AqsntqonrCeeLite Technologies Hemoglobin A1c/Hemoglobin.total mass fraction (Bld)8.80 %Invalid Interpretation Code4.3-6.3Blanwestern medical center [facility]ze Otheron 90-83-3022Cvvxbwcwb Ql (U)NegativeNegative [place] [facility] Glucose Test strip mass conc (U)4+Invalid Interpretation CodeNegativeDallas CenterCeeLite Technologies Hemoglobin Ql (U)NegativeNegativeDallas CenterCeeLite Technologies Nitrite Ql (U)NegativeNegNovant Health Presbyterian Medical CenterCeeLite Technologies pH (U)6 [pH]Invalid Interpretation Code5.0-9.0[place] Protein Ql (U)NegativeNegativeMacheen Urobilinogen Test strip mass conc (U)normalnormal Orph[facility]yme 206Orphazyme 206.0 mg/dLInvalid Interpretation CodeMacheen Urinalysison 64-94-6184Dnzzngy Nom (U)ClearInvalid Interpretation CodeClearBlanwestern medical center Cloze Color Nom (U)yellowInvalid Interpretation Codeyellow [employer] Ketones Ql (U)1+Invalid Interpretation CodeNegative Or[facility]yme Leukocyte esterase Test strip Ql (U)NegativeNegative Or[facility] Specific gravity Relative Density (U)1.015Invalid Interpretation Code1.003-1.030[place] Cardiacon 35-89-8949Kiazmaktibi in HDL mass conc35.0 mg/dLInvalid Interpretation Rzxy83-896KwkdtdgsjOrphazyme Cholesterol in LDL mass conc90.0 mg/dLInvalid Interpretation Code0-130[place] Cholesterol mass ucza734.0 mg/dLInvalid Interpretation Code0-200Or[facility]yme Triglyceride mass fqkj289.0 mg/dLInvalid Interpretation Kgnh64-916QcicxonvvMacheen Hematologyon 68-45-6809Fumajsbcfs Volume Fraction (Bld) 44.0 %Invalid Interpretation Code37.8-51.0[place] Hemoglobin mass conc (Bld)15.20 g/dLInvalid Interpretation Code12.6-17.0[place] CenterCeeLite Technologies MCH Entitic mass (RBC)32.0 pgInvalid Interpretation Code25.7-33.8Bwenatchee valley medical centerMyhomepayge, Inc. MCV Entitic volume (RBC)92.60 fLInvalid Interpretation Code81.0-100.2Bwenatchee valley medical centerMyhomepayge, Inc. Platelets #/vol (Bld)244.0 10*3/uLInvalid Interpretation Hguh725-675MqyodnbsmCeeLite Technologies RBC #/vol (Bld)4.750 10*6/uLInvalid Interpretation Code 4.34-5.61[place] CenterCeeLite Technologies WBC #/vol (Bld)6.80 10*3/uLInvalid Interpretation Code 3.9-10.3Bmayo clinic health system– red cedarMZL [employer] Imm/Pathon 26-82-7362Qrayonvk specific Ag mass conc0.61 ng/mLInvalid Interpretation Code0.00-4.00[place] CenterCeeLite Technologies Metabolic Panelon 39-38-7455Dbajnoh mass conc4.50 g/dL Invalid Interpretation Code3.7-4.5Bmayo clinic health system– red cedarMZL [employer] ALP enzyme act/vol75.0 U/LInvalid Interpretation Code 31-155D[place] CenterCeeLite Technologies ALT enzyme act/vol66.0 U/LInvalid Interpretation Code 0-50[place] Anion gap molar conc20 mmol/LInvalid Interpretation Bleb31-13BobufrbofCeeLite Technologies AST enzyme act/vol39.0 U/LInvalid Interpretation Code 0-40Orphazyme Bilirubin mass conc0.40 mg/dLInvalid Interpretation Code0.0-1.0[place] CenterCeeL[facility] Technologies Calcium mass conc9.40 mg/dLInvalid Interpretation Code 8.5-10.8[facility] Chloride molar conc96 mmol/LInvalid Interpretation Code 100-112D[place] CenterCyntellect [facility] CO2 molar conc28 mmol/LInvalid Interpretation Jiqa58-23 [place] [employer] [facility] Creatinine mass conc0.90 mg/dLInvalid Interpretation Code0.5-1.5[facility]ze GFR/1.73 sq M predicted among non-blacks MDRD vol rate/area (S/P/Bld)88 mL/min/{1.73_m2}Invalid Interpretation CodeDallas CenterCyntellect [facility] Glucose mass uaot216.0 mg/dLInvalid Interpretation Code 80-117[place] CenterCeeL[facility] Technologies Hemoglobin A1c/Hemoglobin.total mass fraction (Bld) 10.50 %Invalid Interpretation Code4.3-6.3Bwenatchee valley medical centerMyhomepayge, Inc. Potassium molar conc4.1 mmol/LInvalid Interpretation Code3.5-5.3[facility] Protein mass conc7.60 g/dLInvalid Interpretation Code 6.3-7.9[facility] iHandle [facility] Sodium molar aeje181 mmol/LInvalid Interpretation Code 135-148[place] CenterCeeL[facility] Technologies Urea nitrogen mass conc13.0 mg/dLInvalid Interpretation Code7-25[place] CenterCeeL[facility] Urea nitrogen/Creatinine mass ratio14 mg/mgInvalid Interpretation Code6-20[place] CenterCeeLite Technologies No Panel Informationon 48-61-54025584Cgqvlte Interpretation Tklf812-664PwyfyzxxkMyhomepayge, Inc. Otheron 16-69-5764Bwuhbnw mass conc (U)64.2Invalid Interpretation Code<17.0[place] CenterCeeLite Technologies Albumin/Globulin mass ratio1.5 {ratio}Invalid Interpretation Code1.0-2.4Bmayo [facility]MZ[facility] Cholesterol in VLDL mass conc79.0 mg/dLInvalid Interpretation Code0-39[place] CenterCee[facility] Technologies Cholesterol.total/Cholesterol in HDL mass ratio6 {ratio}Invalid Interpretation CodeDallas CenterCeeLite Technologies Cobalamin (Vitamin B12) mass gpge1287 pg/sR758-798 [place] [facility] Erythrocyte distribution width Ratio (RBC)11.70 % Invalid Interpretation [email or web address] MCHC mass conc (RBC)34.50 g/dLInvalid Interpretation Code32.0-36.0[place] CenterCeeL[facility] Technologies Platelet mean volume Entitic volume (Bld)9.80 fLInvalid Interpretation [email or web address] 255BlanchCeeLite Technologies 18.9Invalid Interpretation Code>[email or web address] 255.0 mg/dLInvalid Interpretation CodeDallas CenterCeeLite Technologies 66.0 U/L0-50[place] [facility] Urinalysison 16-22-3613Aqfblqg/Creatinine DL <= 20 mg/L mass ratio (U)334.4 mg/gInvalid Interpretation Code0.0-30.0M[place]en Creatinine mass conc (U)19.20 mg/dLInvalid Interpretation CodeNot Estab. mg/dLBmayo clinic health system– red cedarMZL [facility] Laboratory - Urinalysison 51-58-3872Arrlbsi Test strip (U) [Mass/Vol]NegativeInvalid Interpretation CodenegativeMacheen Protein (U) [Mass/Vol]NegativeInvalid Interpretation CodenegativeDallas CenterCeeLite Technologies Metabolic Panelon 36-27-5803Adfmnth mass otjd480.0 mg/dLInvalid Interpretation Zsbh83-720CavqeywbxMacheen Hemoglobin A1c/Hemoglobin.total mass fraction (Bld)9.50 %Invalid Interpretation Code4.3-6.3Bmayo clinic health system– red cedarMZL [facility] Otheron 59-39-2212Xgizavk Test strip mass conc (U) NegativenegativeMacheen 226BlanchCeeLite Technologies 226.0 mg/dLInvalid Interpretation CodeMacheen Urinalysison 87-96-1162Qrwqkva mass conc (U)Negative negativeDallas CenterCeeLite Technologies Cardiacon 16-54-5727Fydndcmshfp in HDL mass conc30.0 mg/dLInvalid Interpretation Jghn42-163EuvdxrnghMacheen Cholesterol mass ciny625.0 mg/dLInvalid Interpretation Code0-200M[place] Triglyceride mass skpj211.0 mg/dLInvalid Interpretation Jxbc95-555JddqrebmsMacheen Metabolic Panelon 71-24-6713Nhydcmn mass conc4.50 g/dL Invalid Interpretation [email or web address] ALP enzyme act/vol83.0 U/LInvalid Interpretation Code 31-155[place] i[facility] ALT enzyme act/vol49.0 U/LInvalid Interpretation Code 0-50[place] CenterCeeL[facility] Anion gap molar conc20 mmol/LInvalid Interpretation Pqlp51-38Crbhqvbkb iHandle [facility] AST enzyme act/vol22.0 U/LInvalid Interpretation Code 0-40[place] CenterC[facility] Bilirubin mass conc0.70 mg/dLInvalid Interpretation Code0.0-1.0[place] CenterCyntellect [facility] Calcium mass conc9.70 mg/dLInvalid Interpretation Code 8.5-10.8[facility] Chloride molar conc93 mmol/LInvalid Interpretation Code 100-112[place] CenterCyntellect [facility] CO2 molar conc27 mmol/LInvalid Interpretation Whtx25-11 [place] [facility] Creatinine mass conc0.90 mg/dLInvalid Interpretation Code0.5-1.5[facility] iHandle [facility] GFR/1.73 sq M predicted among non-blacks MDRD vol rate/area (S/P/Bld)88 mL/min/{1.73_m2}Invalid Interpretation CodeDallas CenterCeeLite Technologies Glucose mass adtf386.0 mg/dLInvalid Interpretation Code 80-117[place] CenterCyntellect [facility] Hemoglobin A1c/Hemoglobin.total mass fraction (Bld)10.0 %Invalid Interpretation Code4.3-6.3Bwenatchee valley medical centerMyhomepayge, Inc. Potassium molar conc4.0 mmol/LInvalid Interpretation Code3.5-5.3Bwenatchee valley medical centerMyhomepayge, Inc. Protein mass conc7.70 g/dLInvalid Interpretation Code 6.3-7.9Bmayo clinic health system– red cedarMZL [employer] [employer] Sodium molar jqeu240 mmol/LInvalid Interpretation Code 135-148M[place]en Urea nitrogen mass conc13.0 mg/dLInvalid Interpretation Code7-25[place] CenterC[facility] Urea nitrogen/Creatinine mass ratio14 mg/mgInvalid Interpretation Code6-20[place] CenterCee[facility] Otheron 98-67-2609Fxbxdvs mass conc (U)141.8Invalid Interpretation Code<17.0M[place]en Albumin/Globulin mass ratio1.4 {ratio}Invalid Interpretation Code1.0-2.4Bmayo clinic health system– red cedarMZL [employer] [employer] Cholesterol in VLDL mass gmvw535.0 mg/dLInvalid Interpretation Code0-39[place] CenterC[facility] Cholesterol.total/Cholesterol in HDL mass ratio9 {ratio}Invalid Interpretation CodeMacheen 240BlanchCeeLite Technologies 49.0 U/L0-50[place] CenterC[facility] 240.0 mg/dLInvalid Interpretation CodeDallas CenterCeeLite Technologies Urinalysison 37-54-1437Whscstn/Creatinine DL <= 20 mg/L mass ratio (U)179.5 mg/gInvalid Interpretation Code0.0-30.0[place]en Creatinine mass conc (U)79.0 mg/dLInvalid Interpretation CodeNot Estab. mg/dLBmayo clinic health system– red cedarMZL [facility] Laboratory - Chemistry and Chemistry - challengeon 50-55-5061Dccsukbei Ql (U)NegativeInvalid Interpretation CodeNegativeMacheen Ketones Ql (U)NegativeInvalid Interpretation Code NegativeDallas CenterCeeLite Technologies Urobilinogen (U) [Mass/Vol]normalInvalid Interpretation CodenormalColfax Cloze Laboratory - Hematology and Cell countson 11-25-2017 Hemoglobin Ql (U)NegativeInvalid Interpretation CodeNegativeCol[place] [facility] Laboratory - Urinalysison 57-65-7982Euzaheibl esterase Test strip Ql (U)NegativeInvalid Interpretation CodeNegativeDallas CenterCeeLite Technologies Nitrite Ql (U)NegativeInvalid Interpretation Code NegativeDallas CenterCeeLite Technologies Protein Ql (U)NegativeInvalid Interpretation Code NegativeDallas CenterCeeLite Technologies Metabolic Panelon 16-93-8333Afecwih mass luor219.0 mg/dLInvalid Interpretation Mcue55-672Fqklikpai Cloze Hemoglobin A1c/Hemoglobin.total mass fraction (Bld)8.60 %Invalid Interpretation Code4.3-6.3[facility] Otheron 88-46-4570Vszjhbbhq Ql (U)NegativeNegative [place] [facility] Glucose Test strip mass conc (U)4+Invalid Interpretation CodeNegativeDallas CenterCeeLite Technologies Hemoglobin Ql (U)NegativeNegativeD[place] CenterCeeLite Technologies Nitrite Ql (U)NegativeNegNovant Health Presbyterian Medical CenterCeeLite Technologies pH (U)5 [pH]Invalid Interpretation Code4.5-7.8Bwenatchee valley medical centerMyhomepayge, Inc. Protein Ql (U)NegativeNegNovant Health Presbyterian Medical CenterCeeLite Technologies Urobilinogen Test strip mass conc (U)normalnormal [employer] 23395483CrtpomqieCeeLite Technologies 200.0 mg/dLInvalid Interpretation CodeDallas CenterCeeLite Technologies Urinalysison 58-44-2931Zkabcxv Nom (U)ClearInvalid Interpretation CodeClearBlanwestern medical center Cloze Color Nom (U)yellowInvalid Interpretation Codeyellow [place] [facility] Ketones Ql (U)NegativeNegativeDallas CenterCeeLite Technologies Leukocyte esterase Test strip Ql (U)NegativeNegative [employer] Specific gravity Relative Density (U)1.010Invalid Interpretation Code1.003-1.029[place] CenterCeeL[facility] Technologies Cardiacon 94-21-1921Xdkmibshnhr in HDL mass conc39.0 mg/dLInvalid Interpretation Zmzg51-207QyrjemtszMacheen Cholesterol in LDL mass fned404.0 mg/dLInvalid Interpretation Code0-130[place] CenterC[facility] Cholesterol mass mfpd745.0 mg/dLInvalid Interpretation Code0-200[place] CenterC[facility] Triglyceride mass magh565.0 mg/dLInvalid Interpretation Vfcd19-585AwcmqkaxlCeeLite Technologies Metabolic Panelon 34-67-7938XFW enzyme act/vol52.0 U/L Invalid Interpretation Code0-50M[place]en Anion gap molar conc17 mmol/LInvalid Interpretation Aipw41-59MmkyqpitmMacheen AST enzyme act/vol38.0 U/LInvalid Interpretation Code 0-40Or[facility] Calcium mass conc9.50 mg/dLInvalid Interpretation Code 8.5-10.8Bwenatchee valley medical centerMyhomepayge, Inc. Chloride molar conc98 mmol/LInvalid Interpretation Code 100-112[place] CenterCeeL[facility] CO2 molar conc29 mmol/LInvalid Interpretation Vcha77-91 [place] [facility] Creatinine mass conc0.90 mg/dLInvalid Interpretation Code0.5-1.5Bwenatchee valley medical centerMyhomepayge, Inc. GFR/1.73 sq M predicted among non-blacks MDRD vol rate/area (S/P/Bld)88 mL/min/{1.73_m2}Invalid Interpretation CodeDallas CenterCeeLite Technologies Glucose mass fjcy644.0 mg/dLInvalid Interpretation Code 80-117[place] CenterC[facility] Hemoglobin A1c/Hemoglobin.total mass fraction (Bld)8.40 %Invalid Interpretation Code4.3-6.3Bmayo clinic health system– red cedarMZL [employer] Potassium molar conc3.8 mmol/LInvalid Interpretation Code3.5-5.3Bwenatchee valley medical centerMyhomepayge, Inc. Sodium molar xneo048 mmol/LInvalid Interpretation Code 135-148[place] CenterCeeL[facility] Urea nitrogen mass conc16.0 mg/dLInvalid Interpretation Code7-25M[place]en Urea nitrogen/Creatinine mass ratio18 mg/mgInvalid Interpretation Code6-20[place] Otheron 21-03-5082Zyzqkce mass conc (U)160.5Invalid Interpretation Code<17.0M[place]en Cholesterol in VLDL mass conc60.0 mg/dLInvalid Interpretation Code0-39[facility] Cholesterol.total/Cholesterol in HDL mass ratio6 {ratio}Invalid Interpretation CodeDallas CenterCeeLite Technologies 194[place] [facility] 194.0 mg/dLInvalid Interpretation CodeDallas CenterCeeLite Technologies 52.0 U/L0-50[place] CenterC[facility] Urinalysison 95-62-2719Mcrcpkr/Creatinine DL <= 20 mg/L mass ratio (U)105.5 mg/gInvalid Interpretation Code0.0-30.0[place] CenterC[facility] Creatinine mass conc (U)152.10 mg/dLInvalid Interpretation CodeNot Estab. mg/dLBlouis stokes [facility] Cl[facility]ze Laboratory - Urinalysison 18-31-7445Kezakgs (U) [Mass/Vol]NegativeInvalid Interpretation CodenegativeDallas CenterCeeLite Technologies Metabolic Panelon 99-74-4615Hsuhnxx mass dpue850.0 mg/dLInvalid Interpretation Cfix61-545EeqacxtmwCeeLite Technologies Hemoglobin A1c/Hemoglobin.total mass fraction (Bld)8.30 %Invalid Interpretation Code4.3-6.3Bwenatchee valley medical centerMyhomepayge, Inc. Otheron 54-61-5928Gwkxhur Test strip mass conc (U)trace Invalid Interpretation CodenegativeDallas CenterCeeLite Technologies pH (U)6.0 [pH]Invalid Interpretation Code4.5-7.8 [place] [facility] 192BlanchCeeL[employer] Technologies 192.0 mg/dLInvalid Interpretation CodeDallas CenterCeeLite Technologies Urinalysison 18-90-3366Eeycarb mass conc (U)Negative negativeDallas CenterCeeLite Technologies Laboratory - Chemistry and Chemistry - challengeon 46-97-4820Rirhmjlru Ql (U)NegativeInvalid Interpretation CodeNegativeOrphazyme Ketones Ql (U)NegativeInvalid Interpretation Code NegativeMacheen Urobilinogen (U) [Mass/Vol]normalInvalid Interpretation CodenormalDallas CenterCeeLite Technologies Laboratory - Hematology and Cell countson 03-29-2017 Hemoglobin Ql (U)NegativeInvalid Interpretation CodeNegativeOffline Mediast. joseph's hospital health centerCeeLite Technologies Laboratory - Urinalysison 92-37-4379Esawwaebb esterase Test strip Ql (U)NegativeInvalid Interpretation CodeNegativeOrphazyme Nitrite Ql (U)NegativeInvalid Interpretation Code NegativeMacheen Protein Ql (U)NegativeInvalid Interpretation Code NegativeDallas CenterCeeLite Technologies Metabolic Panelon 92-49-2973Iuyzrkp mass dzss143.0 mg/dLInvalid Interpretation Alpb73-404JrebtwcgdMacheen Hemoglobin A1c/Hemoglobin.total mass fraction (Bld)8.0 %Invalid Interpretation Code4.3-6.3Blanwestern medical center [facility]ze Otheron 27-81-8013Beyuhek mass conc (U)< 12.0Invalid Interpretation Code< 17.0 ug/mLDallas CenterCeeLite Technologies Bilirubin Ql (U)NegativeNegativeOrphazyme Glucose Test strip mass conc (U)4+Invalid Interpretation CodeNegativeOrphazyme Hemoglobin Ql (U)NegativeNegativeOrphazyme Nitrite Ql (U)NegativeNegmaniilaq health centerOrphazyme pH (U)6 [pH]Invalid Interpretation Code4.5-7.8[facility]ze Protein Ql (U)NegativeNegativeFairfield Medical Center [facility]rive Solo [facility] Urobilinogen Test strip mass conc (U)normalnormal [facility] [employer] [facility] 183BlanchCyntellect [facility] 183.0 mg/dLInvalid Interpretation CodeDallas CenterCyntellect [facility] Urinalysison 74-67-8344Qfiduvd Nom (U)clearInvalid Interpretation CodeClearBOhio State University [facility] [employer] Color Nom (U)yellowInvalid Interpretation Codeyellow [facility] [employer] [facility] Creatinine mass conc (U)14.20 mg/dLInvalid Interpretation CodeNot Estab. mg/dLBlouis stokes [facility] iHandle [facility] Ketones Ql (U)NegativeNegativeDallas CenterQuepasa [place] [facility] Leukocyte esterase Test strip Ql (U)NegativeNegative [facility] [employer] [facility] Specific gravity Relative Density (U)1.015Invalid Interpretation Code1.003-1.029[place] [facility] Laboratory - Chemistry and Chemistry - challengeon 72-45-8029Dgyswirrv Ql (U)NegativeInvalid Interpretation CodeNegativeDallas CenterCyntellect [facility] Ketones Ql (U)NegativeInvalid Interpretation Code NegativeDallas CenterCyntellect [facility] Urobilinogen (U) [Mass/Vol]normalInvalid Interpretation CodenormalDallas CenterCyntellect [facility] Laboratory - Urinalysison 41-27-5584Abgvbuesl esterase Test strip Ql (U)NegativeInvalid Interpretation CodeNegativeDallas CenterCeeLite Technologies Nitrite Ql (U)NegativeInvalid Interpretation Code NegativeDallas CenterCeeLite Technologies Metabolic Panelon 39-07-7240Fzmhpar mass yklx386.0 mg/dLInvalid Interpretation Ybrz03-484EbgbcehkfCeeLite Technologies Hemoglobin A1c/Hemoglobin.total mass fraction (Bld)6.90 %Invalid Interpretation Code4.3-6.3Bwenatchee valley medical centerMyhomepayge, Inc. Otheron 33-15-9428Bmtudxbob Ql (U)NegativeNegative [employer] Glucose Test strip mass conc (U)4+Invalid Interpretation CodeNegNovant Health Presbyterian Medical CenterCyntellect [facility] Hemoglobin Ql (U)TraceInvalid Interpretation Code NegativeDallas CenterCeeLite Technologies Nitrite Ql (U)NegativeNegativeD[place] CenterCyntellect [facility] pH (U)6 [pH]Invalid Interpretation Code4.5-7.8Bwenatchee valley medical centerMyhomepayge, Inc. Protein Ql (U)1+Invalid Interpretation CodeNegative MonroeK[employer] [facility] Urobilinogen Test strip mass conc (U)normalnormal MonroeK[employer] [facility] 151BlanchCyntellect [facility] 151.0 mg/dLInvalid Interpretation [facility] HospitalCyntellect [facility] Urinalysison 64-38-2060Mzwfxcy Nom (U)clearInvalid Interpretation CodeClearBwenatchee valley medical centerMyhomepayge, Inc. Color Nom (U)yellowInvalid Interpretation Codeyellow [employer] Ketones Ql (U)NegativeNegativeOffline Mediast. joseph's hospital health centerCeeLite Technologies Leukocyte esterase Test strip Ql (U)NegativeNegative MonroeK[employer] [facility] Specific gravity Relative Density (U)1.010Invalid Interpretation Code1.003-1.029[place] CenterCeeL[facility] Technologies Cardiacon 14-44-8297Autneoigeqi in HDL mass conc32.0 mg/dLInvalid Interpretation Ocwt05-687MvkofdvkeCeeLite Technologies Cholesterol in LDL mass conc80.0 mg/dLInvalid Interpretation Code0-130[place] CenterCee[facility] Cholesterol mass xjgs745.0 mg/dLInvalid Interpretation Code0-200[place] CenterCeeL[facility] Technologies Triglyceride mass lbcb910.0 mg/dLInvalid Interpretation Nhyb64-142YizwhyxcsCeeLite Technologies Metabolic Panelon 84-24-8354PVK enzyme act/vol48.0 U/L Invalid Interpretation Code0-50[place] CenterCyntellect [facility] Anion gap molar conc20 mmol/LInvalid Interpretation Sdtf72-86QdrfxuqcnCeeLite Technologies AST enzyme act/vol22.0 U/LInvalid Interpretation Code 0-40[place] CenterC[facility] Calcium mass conc9.70 mg/dLInvalid Interpretation Code 8.5-10.8Bwenatchee valley medical centerMyhomepayge, Inc. Chloride molar vpfu278 mmol/LInvalid Interpretation Dcgs135-978PkmzcikesCeeLite Technologies CO2 molar conc26 mmol/LInvalid Interpretation Iava42-86 [employer] [facility] Creatinine mass conc1.10 mg/dLInvalid Interpretation Code0.5-1.5Bmayo clinic health system– red cedarMZL [facility] [employer] GFR/1.73 sq M predicted among non-blacks MDRD vol rate/area (S/P/Bld)70 mL/min/{1.73_m2}Invalid Interpretation CodeOrphazyme Glucose mass ldac374.0 mg/dLInvalid Interpretation Code 80-117[facility] Hemoglobin A1c/Hemoglobin.total mass fraction (Bld)7.10 %Invalid Interpretation Code4.3-6.3Bwenatchee valley medical centerMyhomepayge, Inc. Potassium molar conc4.1 mmol/LInvalid Interpretation Code3.5-5.3Bwenatchee valley medical centerMyhomepayge, Inc. Sodium molar jgkw015 mmol/LInvalid Interpretation Code 135-148[facility] Urea nitrogen mass conc18.0 mg/dLInvalid Interpretation Code7-25M[place]en Urea nitrogen/Creatinine mass ratio16 mg/mgInvalid Interpretation Code6-20[facility] Otheron 46-61-5557Iotosmclyzr in VLDL mass conc68.0 mg/dLInvalid Interpretation Code0-39[facility] Cholesterol.total/Cholesterol in HDL mass ratio6 {ratio}Invalid Interpretation trend.ly 157Orphazyme 48.0 U/L0-50Macheen 157.0 mg/dLInvalid Interpretation CodeOrphazyme Laboratory - Chemistry and Chemistry - challengeon 30-92-1027Bjtyrhoae Ql (U)NegativeInvalid Interpretation CodeNegativeOrphazyme Urobilinogen (U) [Mass/Vol]normalInvalid Interpretation CodenormalOrphazyme Laboratory - Hematology and Cell countson 07-27-2016 Hemoglobin Ql (U)NegativeInvalid Interpretation CodeNegativeOrphazyme Laboratory - Urinalysison 74-50-1306Qeiomtiwu esterase Test strip Ql (U)NegativeInvalid Interpretation CodeNegativeOrphazyme Nitrite Ql (U)NegativeInvalid Interpretation Code NegativeMacheen Protein Ql (U)NegativeInvalid Interpretation Code NegativeMacheen Metabolic Panelon 19-61-2607Exekz gap molar conc19 mmol/LInvalid Interpretation Uxdb43-36MzaxuwdjgOrphazyme Calcium mass conc9.90 mg/dLInvalid Interpretation Code [email or web address] Chloride molar conc96 mmol/LInvalid Interpretation Code 100-112[facility] CO2 molar conc29 mmol/LInvalid Interpretation Jkxf62-96 [place] [facility] Creatinine mass conc1.10 mg/dLInvalid Interpretation [email or web address] GFR/1.73 sq M predicted among non-blacks MDRD vol rate/area (S/P/Bld)70 mL/min/{1.73_m2}Invalid Interpretation CodeOrphazyme Glucose mass lzsq595.0 mg/dLInvalid Interpretation Code 80-117Or[facility] Hemoglobin A1c/Hemoglobin.total mass fraction (Bld)7.50 %Invalid Interpretation [email or web address] Potassium molar conc3.9 mmol/LInvalid Interpretation [email or web address] Sodium molar qcrb770 mmol/LInvalid Interpretation Code 135-148D[place] CenterCeeLite Technologies Urea nitrogen mass conc14.0 mg/dLInvalid Interpretation Code7-25[place] [facility] Urea nitrogen/Creatinine mass ratio13 mg/mgInvalid Interpretation Code6-20[place] [facility] Otheron 15-46-2877Rzoamkd mass conc (U)< 12.0Invalid Interpretation Code< 17.0 ug/mLDallas CenterCeeLite Technologies Bilirubin Ql (U)NegativeNegativeDallas CenterCeeLite Technologies Glucose Test strip mass conc (U)4+Invalid Interpretation CodeNegNovant Health Presbyterian Medical CenterCyntellect [facility] Hemoglobin Ql (U)NegativeNegativeDallas CenterCeeLite Technologies Nitrite Ql (U)NegativeNegNovant Health Presbyterian Medical CenterCyntellect [facility] pH (U)5 [pH]Invalid Interpretation Code4.5-7.8[facility] iHandle [facility] Protein Ql (U)NegativeNegativeDallas CenterCeeLite Technologies Urobilinogen Test strip mass conc (U)normalnormal [place] [facility]Handle [facility] 169BlanchCyntellect [facility] 169.0 mg/dLInvalid Interpretation CodeDallas CenterCyntellect [facility] Thyroidon 07-40-8755N1 mass conc5.55 ug/dLInvalid Interpretation Code5.00-12.00[place] CenterCeeLite Technologies Thyrotropin Qn2.71 m[IU]/LInvalid Interpretation Code 0.50-4.00[place] CenterCeeL[facility] Technologies Urinalysison 50-90-1292Grmymxp Nom (U)clearInvalid Interpretation CodeClearBlouis stokes [facility] Cloze Color Nom (U)yellowInvalid Interpretation Codeyellow [employer] Creatinine mass conc (U)85.80 mg/dLInvalid Interpretation CodeNot Estab. mg/dLBwenatchee valley medical centerMyhomepayge, Inc. Ketones Ql (U)1+Invalid Interpretation CodeNegative [employer] Leukocyte esterase Test strip Ql (U)NegativeNegative [employer] Specific gravity Relative Density (U)1.015Invalid Interpretation Code1.003-1.029[place] CenterCeeLite Technologies Laboratory - Chemistry and Chemistry - challengeon 76-90-9987Ugarjiiod Ql (U)NegativeInvalid Interpretation CodeNegativeDallas CenterCeeLite Technologies Ketones Ql (U)NegativeInvalid Interpretation Code NegativeDallas CenterCeeLite Technologies Urobilinogen (U) [Mass/Vol]normalInvalid Interpretation CodenormalDallas CenterCeeLite Technologies Laboratory - Hematology and Cell countson 03-04-2016 Hemoglobin Ql (U)NegativeInvalid Interpretation CodeNegativeDallas CenterCeeLite Technologies Laboratory - Urinalysison 86-26-7914Iitxfnxik esterase Test strip Ql (U)NegativeInvalid Interpretation CodeNegativeOrphazyme Nitrite Ql (U)NegativeInvalid Interpretation Code NegativeOrphazyme Protein Ql (U)NegativeInvalid Interpretation Code NegativeMacheen Metabolic Panelon 54-16-9266Fcfrd gap molar conc16 mmol/LInvalid Interpretation Symo48-40NmxxouwpaOrphazyme Calcium mass conc10.30 mg/dLInvalid Interpretation Code [email or web address] Chloride molar conc99 mmol/LInvalid Interpretation Code 100-112M[place]en CO2 molar conc30 mmol/LInvalid Interpretation Umwt77-77 [employer] Creatinine mass conc1.0 mg/dLInvalid Interpretation Code0.5-1.5Bmayo clinic health system– red cedarMZL [employer] [employer] GFR/1.73 sq M predicted among non-blacks MDRD vol rate/area (S/P/Bld)79 mL/min/{1.73_m2}Invalid Interpretation CodeDallas CenterCeeLite Technologies Glucose mass jrcf283.0 mg/dLInvalid Interpretation Code 80-117[place] CenterCeeL[facility] Technologies Hemoglobin A1c/Hemoglobin.total mass fraction (Bld)6.70 %Invalid Interpretation Code4.3-6.3Bmayo clinic health system– red cedarMZL [employer] Potassium molar conc4.1 mmol/LInvalid Interpretation Code3.5-5.3BJin-Magicregency hospital companyMyhomepayge, Inc. Sodium molar vjut131 mmol/LInvalid Interpretation Code 135-148D[place] CenterCeeL[facility] Technologies Urea nitrogen mass conc12.0 mg/dLInvalid Interpretation Code7-25Macheen Urea nitrogen/Creatinine mass ratio12 mg/mgInvalid Interpretation Code6-20M[place] Otheron 17-13-5469Rvvixpzny Ql (U)NegativeNegative [employer] Glucose Test strip mass conc (U)4+Invalid Interpretation CodeNegativeDallas CenterCeeLite Technologies Hemoglobin Ql (U)NegativeNegativeDallas CenterCeeL[facility] Technologies Nitrite Ql (U)NegativeNegativeOffline Mediast. joseph's hospital health centerCeeLite Technologies pH (U)6 [pH]Invalid Interpretation Code4.5-7.8Bwenatchee valley medical centerMyhomepayge, Inc. Protein Ql (U)NegativeNegativeOffline Mediast. joseph's hospital health centerCeeLite Technologies Urobilinogen Test strip mass conc (U)normalnormal [employer] 146BlanchCee[employer] 146.0 mg/dLInvalid Interpretation [facility] HospitalC[facility] Urinalysison 23-20-5423Qxmfdwm Nom (U)clearInvalid Interpretation CodeClearBwenatchee valley medical centerMyhomepayge, Inc. Color Nom (U)yellowInvalid Interpretation Codeyellow [employer] Ketones Ql (U)NegativeNegativeOffline Mediast. joseph's hospital health centerCeeLite Technologies Leukocyte esterase Test strip Ql (U)NegativeNegative [facility] Specific gravity Relative Density (U)1.015Invalid Interpretation Code1.003-1.029[place] CenterCeeLite Technologies Laboratory - Chemistry and Chemistry - challengeon 76-00-2681Xnwyxlwwv Ql (U)NegativeInvalid Interpretation CodeNegativeOrphazyme Urobilinogen (U) [Mass/Vol]normalInvalid Interpretation CodenormalDallas CenterCeeLite Technologies Laboratory - Hematology and Cell countson 11-26-2015 Hemoglobin Ql (U)NegativeInvalid Interpretation CodeNegCIRQY Laboratory - Urinalysison 37-06-1378Uaznjrmzp esterase Test strip Ql (U)NegativeInvalid Interpretation CodeNegmaniilaq health centerBlanchCeeLite Technologies Nitrite Ql (U)NegativeInvalid Interpretation Code NegativeDallas CenterCeeLite Technologies Protein Ql (U)NegativeInvalid Interpretation Code NegativeDallas CenterCyntellect [facility] Metabolic Panelon 50-36-2972Dtnrrmx mass cfyz970.0 mg/dLInvalid Interpretation Kxsu13-412PoououdwoCeeLite Technologies Hemoglobin A1c/Hemoglobin.total mass fraction (Bld)9.70 %Invalid Interpretation Code4.3-6.3[facility] Cloze Otheron 23-36-0836Deoygpp mass conc (U)< 12.0Invalid Interpretation Code< 4.0-17.0[place] CenterCeeLite Technologies Bilirubin Ql (U)NegativeNegativeDallas CenterCyntellect [facility] Glucose Test strip mass conc (U)4+Invalid Interpretation CodeNegativeDallas CenterCyntellect [facility] Hemoglobin Ql (U)NegativeNegativeDallas CenterCeeLite Technologies Nitrite Ql (U)NegativeNegNovant Health Presbyterian Medical CenterCeeLite Technologies pH (U)6 [pH]Invalid Interpretation Code4.5-7.8Bwenatchee valley medical centerNemedia [facility] Protein Ql (U)NegativeNegativeDallas CenterCyntellect [facility] Urobilinogen Test strip mass conc (U)normalnormal [place] iHandle [facility] [id number] Technologies 232.0 mg/dLInvalid Interpretation CodeDallas CenterCyntellect [facility] Thyroidon 26-54-5984P8 mass conc5.77 ug/dLInvalid Interpretation Code5.00-12.00BlanchCeeLite Technologies Thyrotropin Qn2.60 m[IU]/LInvalid Interpretation Code 0.50-4.00[facility] [employer] Solo [facility] Urinalysison 11-89-7595Ueqnvyd Nom (U)clearInvalid Interpretation CodeClearBOhio State University [facility] Color Nom (U)yellowInvalid Interpretation Codeyellow [facility] [employer] [employer] [facility] Creatinine mass conc (U)66.20 mg/dLInvalid Interpretation CodeNot Estab. mg/dLBOhio State University [facility] Ketones Ql (U)2+Invalid Interpretation CodeNegative [facility] [employer] [facility] Leukocyte esterase Test strip Ql (U)NegativeNegative [facility] [employer] [facility] Specific gravity Relative Density (U)1.010Invalid Interpretation Code1.003-1.029[facility] Laboratory - Chemistry and Chemistry - challengeon 20-89-1387Glbjfgid [Mass/Vol]ug/dLInvalid Interpretation Code3.1-22.4BOhio State University [facility] Otheron 72-50-1266Tgtafufh mass concug/dL3.1-22.4 [place] [employer] [facility] Laboratory - Chemistry and Chemistry - challengeon 87-53-6492Gpotfryyn Ql (U)NegativeInvalid Interpretation CodeNegativeFairfield Medical Center [facility] Urobilinogen (U) [Mass/Vol]normalInvalid Interpretation CodenormalFairfield Medical Center [facility] Laboratory - Hematology and Cell countson 10-29-2015 Hemoglobin Ql (U)NegativeInvalid Interpretation CodeNegativeFairfield Medical Center [facility] Laboratory - Urinalysison 83-60-8131Twyiacdml esterase Test strip Ql (U)NegativeInvalid Interpretation CodeNegativeDallas CenterCeeLite Technologies Nitrite Ql (U)NegativeInvalid Interpretation Code NegativeDallas CenterCeeLite Technologies Protein Ql (U)NegativeInvalid Interpretation Code NegativeDallas CenterCeeLite Technologies Metabolic Panelon 56-21-7592Kivjs gap molar conc20 mmol/LInvalid Interpretation Taiq72-87FnksbhwutCeeLite Technologies Calcium mass conc9.70 mg/dLInvalid Interpretation Code 8.5-10.8Bmayo clinic health system– red cedarMZL [employer] Chloride molar conc96 mmol/LInvalid Interpretation Code 100-112D[place] CenterCeeLite Technologies CO2 molar conc27 mmol/LInvalid Interpretation Znnz41-84 [place] [employer] Creatinine mass conc0.80 mg/dLInvalid Interpretation Code0.5-1.5Bmayo clinic health system– red cedarMZL [employer] GFR/1.73 sq M predicted among non-blacks MDRD vol rate/area (S/P/Bld)102 mL/min/{1.73_m2}Invalid Interpretation CodeDallas CenterCeeLite Technologies Glucose mass ddxb005.0 mg/dLInvalid Interpretation Code 80-117D[place] CenterCeeLite Technologies Hemoglobin A1c/Hemoglobin.total mass fraction (Bld) 12.60 %Invalid Interpretation Code4.3-6.3Bmayo clinic health system– red cedarMZL [employer] Potassium molar conc3.6 mmol/LInvalid Interpretation Code3.5-5.3BHassle.com Sodium molar ommi634 mmol/LInvalid Interpretation Code 135-148Macheen Urea nitrogen mass conc11.0 mg/dLInvalid Interpretation Code7-25D[place] CenterCeeLite Technologies Urea nitrogen/Creatinine mass ratio14 mg/mgInvalid Interpretation Code6-20[place] CenterCeeLite Technologies Otheron 48-02-0457Lkvptox mass conc (U)25.9Invalid Interpretation Code0.0-17.0[place] CenterCyntellect [facility] Bilirubin Ql (U)NegativeNegativeDallas CenterCeeLite Technologies Glucose Test strip mass conc (U)4+Invalid Interpretation CodeNegativeDallas CenterCeeLite Technologies Hemoglobin Ql (U)NegativeNegNovant Health Presbyterian Medical CenterCeeLite Technologies Nitrite Ql (U)NegativeNegNovant Health Presbyterian Medical CenterCeeLite Technologies pH (U)5 [pH]Invalid Interpretation Code4.5-7.8Bwenatchee valley medical centerNemedia [facility] Protein Ql (U)NegativeNegativeDallas CenterCeeLite Technologies Urobilinogen Test strip mass conc (U)normalnormal [place] [employer] [facility] 315BlanchCeeLite Technologies 315.0 mg/dLInvalid Interpretation CodeDallas CenterCyntellect [facility] Urinalysison 28-24-6365Cszxznw/Creatinine DL <= 20 mg/L mass ratio (U)14.7 mg/gInvalid Interpretation Code0.0-30.0[place] CenterCyntellect [facility] Clarity Nom (U)clearInvalid Interpretation CodeClear [employer] Color Nom (U)yellowInvalid Interpretation Codeyellow [place] [employer] Creatinine mass conc (U)175.60 mg/dLInvalid Interpretation CodeNot Estab. mg/dLBlanchaNemedia [facility] Ketones Ql (U)3+Invalid Interpretation CodeNegative [place] [employer] [facility] Leukocyte esterase Test strip Ql (U)NegativeNegative [place] [employer] [facility] Specific gravity Relative Density (U)1.020Invalid Interpretation Code1.003-1.029[place] CenterCyntellect [facility] Laboratory - Chemistry and Chemistry - challengeon 19-44-1265Dxuyfflvo Ql (U)NegativeInvalid Interpretation CodeNegativeDallas CenterCyntellect [facility] Urobilinogen (U) [Mass/Vol]normalInvalid Interpretation CodenormalColfax iHandle [facility] Laboratory - Hematology and Cell countson 10-03-2015 Hemoglobin Ql (U)NegativeInvalid Interpretation CodeNegativeDallas CenterCyntellect [facility] Laboratory - Urinalysison 85-64-1741Wtfosrlyz esterase Test strip Ql (U)NegativeInvalid Interpretation CodeNegativeDallas CenterCyntellect [facility] Nitrite Ql (U)NegativeInvalid Interpretation Code NegativeDallas CenterCyntellect [facility] Protein Ql (U)NegativeInvalid Interpretation Code NegativeDallas CenterCyntellect [facility] Metabolic Panelon 67-84-9946Jaczz gap molar conc24 mmol/LInvalid Interpretation Zegm41-82QbgidpromCyntellect [facility] Calcium mass conc9.30 mg/dLInvalid Interpretation Code 8.5-10.8[facility] iHandle [facility] Chloride molar conc93 mmol/LInvalid Interpretation Code 100-112D[place] CenterCyntellect [facility] CO2 molar conc23 mmol/LInvalid Interpretation Irls66-76 [employer] Creatinine mass conc0.90 mg/dLInvalid Interpretation Code0.5-1.5Bwenatchee valley medical centerNemedia [facility] GFR/1.73 sq M predicted among non-blacks MDRD vol rate/area (S/P/Bld)89 mL/min/{1.73_m2}Invalid Interpretation CodeDallas CenterCyntellect [facility] Glucose mass hheq291.0 mg/dLInvalid Interpretation Code 80-117[place] CenterCeeLite Technologies Potassium molar conc4.0 mmol/LInvalid Interpretation Code3.5-5.3Bwenatchee valley medical centerMyhomepayge, Inc. Sodium molar aypv961 mmol/LInvalid Interpretation Code 135-148D[place] CenterCeeLite Technologies Urea nitrogen mass conc13.0 mg/dLInvalid Interpretation Code7-25[place] CenterCyntellect [facility] Urea nitrogen/Creatinine mass ratio14 mg/mgInvalid Interpretation Code6-20[place] CenterCyntellect [facility] Otheron 06-55-6554Vvdvgnxhn Ql (U)NegativeNegative [place] [employer] [facility] C peptide mass conc5.0Invalid Interpretation Code 1.1-4.4Bwenatchee valley medical centerNemedia [facility] Cortisol mass conc4.0 ug/dLInvalid Interpretation Code 3.1-22.4Bwenatchee valley medical centerNemedia [facility] Glucose Test strip mass conc (U)4+Invalid Interpretation CodeNegativeDallas CenterCyntellect [facility] Hemoglobin Ql (U)NegativeNegativeDallas CenterCeeLite Technologies Nitrite Ql (U)NegativeNegativeDallas CenterCeeLite Technologies pH (U)5 [pH]Invalid Interpretation Code4.5-7.8Bmayo clinic health system– red cedarMZL [employer] Protein Ql (U)NegativeNegativeDallas CenterCeeLite Technologies Urobilinogen Test strip mass conc (U)normalnormal [employer] See AboveInvalid Interpretation Code0-0[place] CenterCeeLite Technologies Urinalysison 20-39-6521Csqmpfk Nom (U)clearInvalid Interpretation CodeClearBwenatchee valley medical centerMyhomepayge, Inc. Color Nom (U)yellowInvalid Interpretation Codeyellow [employer] Ketones Ql (U)1+Invalid Interpretation CodeNegative [employer] Leukocyte esterase Test strip Ql (U)NegativeNegative [employer] Specific gravity Relative Density (U)1.005Invalid Interpretation Code1.003-1.029[place] CenterCeeLite Technologies Hematologyon 99-72-2340Iyabggdzf #/vol (Bld)0.10 10*3/uLInvalid Interpretation Code0.0-0.1Bmayo clinic health system– red cedarMZL [employer] Basophils/100 WBC (Bld)0.70 %Invalid Interpretation Code0.0-1.0Macheen Eosinophils #/vol (Bld)0.30 10*3/uLInvalid Interpretation Code0.0-0.5Bmayo clinic health system– red cedarMZL [employer] Eosinophils/100 WBC (Bld)3.10 %Invalid Interpretation Code0.0-7.0[employer] ESR Velocity (Bld)31 mm/hInvalid Interpretation Code 0-15Or[employer] Hematocrit Volume Fraction (Bld)39.50 %Invalid Interpretation Code37.8-51.0[employer] Hemoglobin mass conc (Bld)13.10 g/dLInvalid Interpretation Code12.6-17.0[facility] [employer] [facility] Lymphocytes #/vol (Bld)2.10 10*3/uLInvalid Interpretation Code0.9-3.1[facility] iHandle [facility] Lymphocytes/100 WBC (Bld)21.80 %Invalid Interpretation Code15.0-46.0[place] CenterCyntellect [facility] MCH Entitic mass (RBC)31.50 pgInvalid Interpretation Code25.7-33.8[facility] iHandle [facility] MCV Entitic volume (RBC)94.60 fLInvalid Interpretation Code82.0-98.4[facility] iHandle [facility] Monocytes #/vol (Bld)0.70 10*3/uLInvalid Interpretation Code0.3-1.0[place] CenterCyntellect [facility] Monocytes/100 WBC (Bld)7.20 %Invalid Interpretation Code4.0-12.0[place] CenterCyntellect [facility] Neutrophils #/vol (Bld)6.20 10*3/uLInvalid Interpretation Code1.8-7.9[facility] iHandle [facility] Neutrophils/100 WBC (Bld)67.20 %Invalid Interpretation Code43.0-76.0[place] CenterCyntellect [facility] Platelets #/vol (Bld)228.0 10*3/uLInvalid Interpretation Qzyq326-400YdlazhqziCyntellect [facility] RBC #/vol (Bld)4.180 10*6/uLInvalid Interpretation Code 4.34-5.61[place] CenterCyntellect [facility] WBC #/vol (Bld)9.40 10*3/uLInvalid Interpretation Code 3.9-10.3Bwenatchee valley medical centerMyhomepayge, Inc. Metabolic Panelon 08-38-9768Nbxfnot mass concg/dLCLASS 0D[place] CenterCeeLite Technologies Otheron 35-43-9942Tmwuzgaxotc distribution width Ratio (RBC)12.20 %Invalid Interpretation Code11.5-15.5Bwenatchee valley medical centerMyhomepayge, Inc. Immune complex IgE Zn90Cwhuudc Interpretation Code0-100 [place] [employer] [facility] MCHC mass conc (RBC)33.30 g/dLInvalid Interpretation Code32.0-36.0[place] CenterCeeLite Technologies Platelet mean volume Entitic volume (Bld)8.50 fLInvalid Interpretation Code7.4-10.4Bwenatchee valley medical centerNemedia [facility] <0.10Invalid Interpretation CodeCLASS 0[place] CenterCyntellect [facility] COMMENTInvalid Interpretation CodeDallas CenterCyntellect [facility] Cardiacon 03-45-3646Yblkijleclq in HDL mass conc60.0 mg/dLInvalid Interpretation Imld27-469MadacmlpyCyntellect [facility] Cholesterol in LDL mass conc58.0 mg/dLInvalid Interpretation Code0-130[facility] CenterCyntellect [facility] Cholesterol mass tves555.0 mg/dLInvalid Interpretation Code0-200[place] CenterCeeLite Technologies Triglyceride mass chqs614.0 mg/dLInvalid Interpretation Mcvt52-219IbafitlltCeeLite Technologies Metabolic Panelon 80-00-0237DOA enzyme act/vol64.0 U/L Invalid Interpretation Code0-50[place] CenterCeeLite Technologies Anion gap molar conc18 mmol/LInvalid Interpretation Aobr79-42LpjtefgkpCeeLite Technologies AST enzyme act/vol39.0 U/LInvalid Interpretation Code 0-40[place] CenterCeeL[facility] Technologies Calcium mass conc9.70 mg/dLInvalid Interpretation Code 8.5-10.8Bwenatchee valley medical centerMyhomepayge, Inc. Chloride molar conc92 mmol/LInvalid Interpretation Code 100-112[place] CenterCeeLite Technologies CO2 molar conc26 mmol/LInvalid Interpretation Btfl18-31 [place] [employer] Creatinine mass conc1.70 mg/dLInvalid Interpretation Code0.5-1.5Bwenatchee valley medical centerMyhomepayge, Inc. GFR/1.73 sq M predicted among non-blacks MDRD vol rate/area (S/P/Bld)43 mL/min/{1.73_m2}Invalid Interpretation CodeDallas CenterCeeLite Technologies Glucose mass geox645.0 mg/dLInvalid Interpretation Code 80-117D[place] CenterCeeLite Technologies Hemoglobin A1c/Hemoglobin.total mass fraction (Bld)8.90 %Invalid Interpretation Code4.3-6.3Bwenatchee valley medical centerMyhomepayge, Inc. Potassium molar conc4.3 mmol/LInvalid Interpretation Code3.5-5.3Bwenatchee valley medical centerMyhomepayge, Inc. Sodium molar uyik182 mmol/LInvalid Interpretation Code 135-148Macheen Urea nitrogen mass conc24.0 mg/dLInvalid Interpretation Code7-25Macheen Urea nitrogen/Creatinine mass ratio14 mg/mgInvalid Interpretation Code6-20Macheen Otheron 38-33-8695Kkgvgol mass conc (U)< 12.0Invalid Interpretation Code< 4.0-17.0[place] CenterCeeLite Technologies Cholesterol in VLDL mass conc32.0 mg/dLInvalid Interpretation Code0-39[place] CenterCeeLite Technologies Cholesterol.total/Cholesterol in HDL mass ratio3 {ratio}Invalid Interpretation CodeMacheen 26335483JwuotnbfhCeeLite Technologies 209.0 mg/dLInvalid Interpretation CodeDallas CenterCeeLite Technologies 64.0 U/L0-50[place] CenterCeeL[facility] Technologies Urinalysison 04-11-1297Htcuqmhtgn mass conc (U)186.0 mg/dLInvalid Interpretation CodeNot Estab. mg/dLBlanwestern medical center [facility]ze Vital Signs Date TimeVital SignValuePerforming HfnfvsdtdHbijpzzo06-80-6714 14:02-0400Body devoxl706.3 Diana Yarbrough MD Work Phone: [phone] [place], [place] [address]Ubptcpnupn18-00-1354 14:02-0400Body mass index (BMI) [Ratio]34.73 kg/v7FpwhcKimmie Yarbrough MD Work Phone: [phone] CenterRjjpiumvmw43-40-3403 14:02-0400Body vneaxt386.95 kgKimmie Yarbrough MD Work Phone: [phone] [place], [place] [address]Spmsdjnsqb64-11-6949 14:02-0400Heart rate95 /min Kimmie Yarbrough MD Work Phone: [phone] [place], [place] [address]Hrqlicupmi41-65-2473 14:02-0400Respiratory rate18 /minKimmie Yarbrough MD Work Phone: [phone] [place], [place] [address]Gjrfayqvsb22-18-1194 14:02-3862MiC5% (BldA) [Mass fraction]98 %Kimmie Yarbrough MD Work Phone: [phone] CenterCdztvhhakq60-39-9875 17:48-0400Body .4 kgWenddanielle n2v Solutionsunc hospitals hillsborough campusOffline Mediast. joseph's hospital health centerCyntellect [facility] [phone] 17:48-0400Diastolic blood etlivfzf18 mm[Hg] [facility] n2v SolutionsPenn State Health Rehabilitation HospitalCyntellect [facility] [phone] 17:48-0400Heart rate76 /minWend P[facility]coJefferson Hospital iHandle [facility] [phone] 17:48-0400Systolic blood mm[Hg] Cinthia n2v Solutionsunc hospitals hillsborough campusOffline Mediast. joseph's hospital health centerCyntellect [facility] [phone] 14:52-0400Body autnqn875.8 cmEricka SAFCellMonroe iHandle [facility] [phone] 14:52-0400Body mass index (BMI) [Ratio]36.16 kg/m2Ericka EyeVerifyst. joseph's hospital health centerCyntellect [facility] Work Phone: [phone] 14:52-0400Body surface area Derived from formula2.38 m2Ericka EyeVerifyst. joseph's hospital health centerCyntellect [facility] [phone] 14:52-0400Body smscko000.31 kgEricka SAFCellMonroe iHandle [facility] Work Phone: [phone] 14:52-0400Diastolic blood ujovlpjt24 mm[Hg] Ericka EyeVerifyst. joseph's hospital health centerCyntellect [facility] [phone] 14:52-0400Heart rate86 /minEricka EyeVerifyst. joseph's hospital health centerCyntellect [facility] [phone] 14:52-0400Systolic blood sckzriow856 mm[Hg] Ericka EyeVerifyst. joseph's hospital health centerCyntellect [facility] [phone] 15:21-0500Body .34 cmEricka Muniz MD Work Phone: [facility]02-04-2025 15:21-0500 Body mass index (BMI) [Ratio]34.5 kg/m2Ericka Muniz MD Work Phone: [phone] [place], [place] 6295402-04-2025 15:21-0500 Body wnkekp081.49 kgEricka Muniz MD Work Phone: [phone]02-04-2025 15:21-0500 Diastolic blood moffylbw57 mm[Hg]Ericka Muniz MD Work Phone: [phone]02-04-2025 15:21-0500 Heart bnkr149 /minEricka Muniz MD Work Phone: [phone]02-04-2025 15:21-0500 Respiratory rate20 /minEricka Muniz MD Work Phone: [phone] [place], [place] 6295402-04-2025 15:21-0500 SaO2% (BldA) [Mass fraction]97 %Ericka Muniz MD Work Phone: [phone]02-04-2025 15:21-0500 Systolic blood jzshrnda322 mm[Hg]Ericka Muniz MD Work Phone: [phone]10-17-2024 17:02-0400 Body eluczm294.85 kgWend Moovlyst. joseph's hospital health centerCeeLite Technologies 10-17-2024 17:02-0400Diastolic blood mm[Hg] Cinthia [employer] [phone] 17:02-0400Heart rate78 /minWend [employer] 10-17-2024 17:02-0400Systolic blood rpxixryg139 mm[Hg] Cinthia [employer] [phone] 14:06-0400Body utxisu749.07 cmHeron [employer] 09-11-2024 14:06-0400Body mass index (BMI) [Ratio]34.52 kg/m2Heron [employer] 09-11-2024 14:06-0400Body surface area Derived from formula2.35 m2Ericka [facility] [employer] [facility] 09-11-2024 14:06-0400Body ekjcfo146.68 kgEricka [facility] [employer] [facility] 09-11-2024 14:06-0400Diastolic blood jmtacona25 mm[Hg] Ericka [facility] 09-11-2024 14:06-0400Heart rate72 /minEricka [facility] 09-11-2024 14:06-0400Systolic blood mm[Hg] Ericka [facility] 06-05-2024 15:17-0400Body pjnefx553.34 cmAPRN Mark Upton Work Phone: [facility]06-05-2024 15:17-0400 Body pegqbrnfhdg96.6 [degF]INDIAN TRADER Mark Upton Work Phone: [phone]06-05-2024 15:17-0400 Body trcymy666.3 kgAPRN Mark Upton Work Phone: [facility]06-05-2024 15:17-0400 Diastolic blood cndyhang74 mm[Hg]INDIAN TRADER Mark Alexsandra Work Phone: [phone]06-05-2024 15:17-0400 Heart rate97 /minAPRN Mark Alexsandra Work Phone: [facility]06-05-2024 15:17-0400 Respiratory rate18 /minAPRN Mark Alexsandra Work Phone: [facility]06-05-2024 15:17-0400 SaO2% (BldA) [Mass fraction]95 %INDIAN TRADER Mark Alexsandra Work Phone: [facility]06-05-2024 15:17-0400 Systolic blood mm[Hg]RADHA Upton Work Phone: [phone] [place], [place] 6804405-25-2024 16:32-0400 Body .34 cmAPRDouglas Upton Work Phone: [phone]05-25-2024 16:32-0400 Body bgrxyzpcjna96.9 [degF]RADHA Upton Work Phone: [phone] [place], [place] 7012405-25-2024 16:32-0400 Body xyvvuu326.25 kgAPRDouglas Upton Work Phone: [phone] [place], [place] 7012405-25-2024 16:32-0400 Diastolic blood gfljgdwu30 mm[Hg]RADHA Upton Work Phone: [phone] [place], [place] 7012405-25-2024 16:32-0400 Heart rate98 /minRADHA Upton Work Phone: [phone] [place], [place] 7012405-25-2024 16:32-0400 Respiratory rate17 /minAPRDouglas Upton Work Phone: [phone] [place], [place] 7012405-25-2024 16:32-0400 SaO2% (BldA) [Mass fraction]95 %RADHA Upton Work Phone: [phone] [place], [place] 7012405-25-2024 16:32-0400 Systolic blood vujkxbev981 mm[Hg]RADHA Upton Work Phone: [phone] [place], [place] 0635505-06-2024 14:24-0400 Body kvnmof110.07 cmEricka EktronDallas CenterCeeLite Technologies 05-06-2024 14:24-0400Diastolic blood zxdnpymu67 mm[Hg] Ericka EyeVerifyst. joseph's hospital health centerCeeLite Technologies 05-06-2024 14:24-0400Systolic blood snsmricr525 mm[Hg] Ericka EyeVerifyst. joseph's hospital health centerCeeLite Technologies 05-06-2024 13:14-0400Body vzvmku150.77 kgEricka AeternusLED [facility] [phone] 13:14-0400Diastolic blood bqqzkwko44 mm[Hg] Ericka EyeVerifyst. joseph's hospital health centerCyntellect [facility] [phone] 13:14-0400Heart rate76 /minEricka EyeVerifyst. joseph's hospital health centerCyntellect [facility] [id number] 13:14-0400Systolic blood eilzgnhq233 mm[Hg] Ericka EyeVerifyst. joseph's hospital health centerCyntellect [facility] Work Phone: [phone] 16:12-0400Body .34 cmEricka SAFCellMonroeKites [facility] [phone] 16:12-0400Body mass index (BMI) [Ratio]33.19 kg/m2Ericka MiRTLE Medical [facility] [phone] 16:12-0400Body surface area Derived from formula2.33 m2Ericka MiRT[employer] Medical [facility] [phone] 16:12-0400Body njkaaf554.96 kgEricka SAFCellMonroeKites [facility] [phone] 16:12-0400Diastolic blood jgtsfxud58 mm[Hg] Ericka EyeVerifyst. joseph's hospital health centerCyntellect [facility] [phone] 16:12-0400Heart rate90 /minEricka MiRTLE Medical [facility] Work Phone: [phone] 16:12-0400Systolic blood avsgckge191 mm[Hg] Ericka [employer] [phone] 16:23-0500Body .34 Lisandra EndosenseDallas CenterCyntellect [facility] 50-180898-77007163-74-5213 16:23-0500Body mass index (BMI) [Ratio]33.33 kg/v4Dbose EndosenseDallas CenterCeeLite Technologies 10-150935-38432825-85-5523 16:23-0500Body surface area Derived from formula2.33 x8Rizgq Bionymst. [facility] health centerCeeLite Technologies 22-179939-26372034-98-8991 16:23-0500Body ixbmil703.41 kgEdilberto Bionymst. [facility]ose[facility] hospital health centerCeeLite Technologies 41-701864-61427992-24-6453 16:23-0500Body weight0.1 {percentile}Edilberto Bionymst. [facility] health centerCeeLite Technologies 26-413119-68605378-25-9193 16:23-0500Diastolic blood mm[Hg] Edilberto Bionymst. [facility]ose[facility] health centerCeeLite Technologies 94-306087-40363379-26-0996 16:23-0500Heart zsfr422 /minEdilberto Jaraeder [place] [facility] 00-407429-10519790-23-9143 16:23-0500Systolic blood vducacft765 mm[Hg] Edilberto Bionymst. [facility]ose[facility] hospital health centerCeeLite Technologies 11-17-2022 14:45-0500Body .88 [facility] 14:45-0500Body mass index (BMI) [Ratio]24.4 kg/e5McdurthcdAshtabula [facility] Hospital11-17-2022 14:45-0500Body disiov41.64 kg [facility]11-17-2022 14:39-0500Body ajskrkivdxp01.7 [degF][facility]11-17-2022 14:39-0500Diastolic blood swpuonbv13 mm[Hg][facility]11-17-2022 14:39-0500Heart rate90 /[facility]11-17-2022 14:39-0500Respiratory rate20 /[facility]11-17-2022 14:39-0500Systolic blood propqksf608 mm[Hg][facility]10-26-2022 14:50-0400Body vsmegv162.88 cmAs[facility]10-26-2022 14:50-0400Body mass index (BMI) [Ratio]24.4 kg/r4ZlgesjbgmAshtabula General Hospital10-26-2022 14:50-0400Body culehu71.64 kgAs[facility]10-26-2022 14:36-0400Body aufmnlsrthy89.9 [degF][facility]10-26-2022 14:36-0400Diastolic blood zkwasyio41 mm[Hg][facility] 05-05-2022 14:36-0400Heart fxpc406 /[facility] 05-05-2022 14:36-0400Respiratory rate18 /[facility] 05-05-2022 14:36-0400Systolic blood blomjzqd528 mm[Hg][facility]10-05-2022 14:46-0400Body yxvrup377.88 cmAs[facility]abula [facility]10-05-2022 14:46-0400Body mass index (BMI) [Ratio]24.4 kg/c1ChorajxfqAshtabula General Hospital10-05-2022 14:46-0400Body tspwbi17.64 kgAs[facility]abula [facility]10-05-2022 14:14-0400Body vuppupstcvl34.6 [degF][facility]10-05-2022 14:14-0400Diastolic blood mm[Hg] [facility]10-05-2022 14:14-0400Heart vyxr244 /min [facility]10-05-2022 14:14-0400Respiratory rate18 /min [facility]10-05-2022 14:14-0400Systolic blood dmknnleb502 mm[Hg][facility]09-22-2022 18:08-0400Body kqitri553.88 cmAs[facility]abula [facility]09-22-2022 18:08-0400Body ldqijsmnjcm05.5 [degF][facility]09-22-2022 18:08-0400Body erodjz861.6 kg [facility]09-22-2022 18:08-0400Diastolic blood rsveomyt94 mm[Hg][facility]09-22-2022 18:08-0400Heart vmbs223 /min [facility]09-22-2022 18:08-0400Respiratory rate20 /min [facility]09-22-2022 18:08-9143WtV9% (BldA) [Mass fraction]97 %[facility]09-22-2022 18:08-0400Systolic blood fyndxcpw977 mm[Hg][facility]08-10-2022 15:25-0400 Body .34 cmJeuniversity hospitals elyria medical centery [facility]lingtonOffline Mediast. jose[facility] hospital health centerCyntellect [facility] Work Phone: [phone] 15:25-0400Body mass index (BMI) [Ratio]33.75 kg/a9Igvhnu SnowBallformerly morehead memorial hospitalOffline Mediast. joseph[facility] hospital health centerCyntellect [facility] Work Phone: [phone] 15:25-0400Body surface area Derived from formula2.35 s0Cpxrdg Marchformerly [facility]head memorial hospitalOffline Mediast. jose[facility] hospital health centerCyntellect [facility] Work Phone: [phone] 15:25-0400Body surface area Derived from formula2.34 w2Wltklu SnowBallformerly morehead memorial hospitalOffline Mediast. jose[facility] hospital health centerCyntellect [facility] Work Phone: [phone] 15:25-0400Body srdzie686.77 kgJeuniversity hospitals elyria medical centery SnowBallformerly morehead memorial hospitalOffline Mediast. jose[facility] health centerCyntellect [facility] Work Phone: [phone] 15:25-0400Diastolic blood haongpsb04 mm[Hg] Franky SnowBallformerly morehead memorial hospitalOffline Mediast. [facility]ose[facility] health centerCyntellect [facility] Work Phone: [phone] 15:25-0400Heart rate84 /minJeuniversity hospitals elyria medical centery [facility] MonroeKites [facility] Work Phone: [phone] 15:25-0400Systolic blood goomhgal060 mm[Hg] Franky ACE Film Productionsst. joseph's hospital health centerCyntellect [facility] Work Phone: [phone] 14:30-0400Body .34 cmHeron GroovinAds Work Phone: [phone] 14:30-0400Body mass index (BMI) [Ratio]33.75 kg/m2Heron [employer] Work Phone: [phone] 14:30-0400Body surface area Derived from formula2.35 m2Ericka EyeVerifyst. joseph's hospital health centerCyntellect [facility] Work Phone: [phone] 14:30-0400Body surface area Derived from formula2.34 m2Ericka EyeVerifyst. joseph's hospital health centerCyntellect [facility] Work Phone: [phone] 14:30-0400Body qnvieo905.77 kgEricka Muniz [place] iHandle [facility] Work Phone: [phone] 14:30-0400Diastolic blood jqveumpa09 mm[Hg] Ericka EktronDallas CenterCyntellect [facility] Work Phone: [phone] 14:30-0400Heart rate88 /minEricka EktronDallas CenterCyntellect [facility] Work Phone: [phone] 14:30-0400Systolic blood tmsregff327 mm[Hg] Ericka EyeVerifyst. joseph's hospital health centerCyntellect [facility] Work Phone: [phone] 13:42-0400Body amcmka732.34 cmLeroy EndosenseDallas CenterCyntellect [facility] Work Phone: [phone] 13:42-0400Body mass index (BMI) [Ratio]33.47 kg/x4Tweuj EndosenseDallas CenterCyntellect [facility] Work Phone: [phone] 13:42-0400Body surface area Derived from formula2.34 f7Xuart Bionymst. joseph's hospital health centerCyntellect [facility] Work Phone: [phone] 13:42-0400Body hyuuvl914.86 kgEdilberto Bionymst. joseph's hospital health centerCyntellect [facility] Work Phone: [phone] 13:42-0400Diastolic blood dmzmehfc00 mm[Hg] Edilberto Ansible [facility] Work Phone: [phone] 13:42-0400Heart rate84 /minEdilberto Sensr.netncKites [facility] Work Phone: [phone] 13:42-0400Systolic blood aujlfimf753 mm[Hg] Edilberto JaraederBlanchCyntellect [facility] 04-12-2022 16:47-0400Body ljvtow116.34 cmDwayneuniversity hospitals elyria medical centery [facility] [employer] [facility] 04-12-2022 16:47-0400Body mass index (BMI) [Ratio]34.03 kg/s4Gkhbta [facility] [employer] [facility] 04-12-2022 16:47-0400Body surface area Derived from formula2.35 w3KnvifoTogus [facility] [employer] [facility] 04-12-2022 16:47-0400Body nxqqai209.68 kgTogus [facility] [employer] [facility] 04-12-2022 16:47-0400Diastolic blood pefrlyjq14 mm[Hg] Franky [facility] [employer] [facility] 04-12-2022 16:47-0400Heart rate88 /minJegarricky [facility] [employer] [facility] 04-12-2022 16:47-0400Systolic blood umxgcnxk798 mm[Hg] Franky [facility] [employer] [facility] 03-10-2022 16:22-0500Body kinbca842.34 cmDwayneuniversity hospitals elyria medical centermichelle [facility] [employer] [facility] 03-10-2022 16:22-0500Body mass index (BMI) [Ratio]34.17 kg/l7TwjrtzTogus VA Medical Center [employer] [facility] 03-10-2022 16:22-0500Body surface area Derived from formula2.36 k7Tupbvv [facility] [employer] [facility] 03-10-2022 16:22-0500Body kuteiw842.13 kgDwayneuniversity hospitals elyria medical centerTribeHR [facility] [employer] [facility] 03-10-2022 16:22-0500Diastolic blood fjygsqdt19 mm[Hg] Franky ACE Film Productionsst. joseph's hospital health centerCyntellect [facility] 03-10-2022 16:22-0500Heart rate84 /minFranky [place] Branch2 [facility] 03-10-2022 16:22-0500Systolic blood vasxaili132 mm[Hg] Franky VidalUNC Health Blue Ridge - ValdeseCyntellect [facility] 56-548650-72175550-50-7555 14:40-0500Body ruwarn187.34 Lisandra Ansible [facility] 82-474893-56966702-43-7279 14:40-0500Body mass index (BMI) [Ratio]35.15 kg/h0Vadhx [facility] 77-676316-53979327-88-3375 14:40-0500Body surface area Derived from formula2.39 y3Toacc [facility] 40-583775-37732070-30-6438 14:40-0500Body zuppjh639.31 kgEdilberto [facility] 07-784188-75287715-79-9634 14:40-0500Diastolic blood dplppubd39 mm[Hg] Edilberto [facility] 46-173825-29389098-91-3625 14:40-0500Heart rate84 /[employer] [facility] 18-632858-39665658-68-9671 14:40-0500Systolic blood lxgrnrfy602 mm[Hg] Edilberto Ansible [facility] 09-09-2021 14:33-0400Body wekzli379.61 Lisandra [facility] 07-540602-47995791-93-1072 14:33-0400Body mass index (BMI) [Ratio]33.49 kg/w0Mkjyb [facility] 47-582876-89979049-68-0248 14:33-0400Body surface area Derived from formula2.36 z8Ocyde Ansible [facility] 09-09-2021 14:33-0400Body .45 kgEdilberto Ansible [facility] 41-418173-12565135-08-2925 14:33-0400Diastolic blood cvortuxd83 mm[Hg] Edilberto Bionymst. joseph's hospital health centerCyntellect [facility] 09-09-2021 14:33-0400Heart rate88 /minEdilberto ZamoraExTractApps [facility] 09-09-2021 14:33-0400Systolic blood mm[Hg] Edilberto Ansible [facility] 64-558590-72083938-49-8370 13:35-0400Body azyucr297.61 cmHeron SAFCellMonroeKites [facility] 06-15-2021 13:35-0400Body mass index (BMI) [Ratio]33.01 kg/m2Heron MiRTLE Medical [facility] 90-514818-45388859-42-5157 13:35-0400Body surface area Derived from formula2.34 m2Heron MiRTLE Medical [facility] 12-853916-59746807-06-1527 13:35-0400Body iimsip121.86 kgHeron AeternusLED [facility] 13-518879-40911375-27-8360 13:35-0400Diastolic blood gtbyvnun95 mm[Hg] Ericka MiRTLE Medical [facility] 69-093509-02931452-17-0420 13:35-0400Heart rate83 /minEricka MiRTLE Medical [facility] 48-975043-64347039-13-4518 13:35-0400Systolic blood onjiyiqb661 mm[Hg] Ericka MiRTLE Medical [facility] 03-02-2021 15:15-0500BMI (Body Mass Index)33.56 kg/m2 Edilberto Ansible [facility] 03-02-2021 15:15-0500Body xrwyzw456.68 kgEdilberto [facility] 25-866799-39076047-18-9888 15:15-0500BP Dnlbxbzxf00 mm[Hg]Edilberto [facility] 52-888902-31355592-67-8691 15:15-0500BP Kyvdhjis716 mm[Hg]Edilberto [facility] Work Phone: [phone] 15:15-0500BSA (Body Surface Area)2.36 m2 Edilberto [facility] Work Phone: [phone] 15:15-0703Jgaykf410.61 Lazy [employer] Work Phone: [phone] 15:15-0500Pulse (Heart Rate)104 /minCopper Springs Hospitalgavi [facility] Work Phone: [phone] 17:01-0400BMI (Body Mass Index)33.46 kg/m2 Edilberto [employer] Work Phone: [phone] 17:01-0400Body hhokby166.37 Lincoln [facility] Work Phone: [phone] 17:01-0400BP Rruitmsoi75 mm[Hg]EdilbertoBuyRentKenya.com Work Phone: [phone] 17:01-0400BP Rjdubmza013 mm[Hg]Edilberto [facility] Work Phone: [phone] 17:01-0400BSA (Body Surface Area)2.36 m2 EdilbertoBuyRentKenya.com Work Phone: [phone] 17:01-4600Fmoheg355.61 [employer] Work Phone: [phone] 17:01-0400Pulse (Heart Rate)78 /minAnystream Work Phone: [phone] 17:34-0400BMI (Body Mass Index)33.83 kg/m2 Ericka [employer] Work Phone: [phone] 17:34-0400Body Rdrdgrcwtvs63.8 [degF]Ericka EyeVerifyst. joseph's hospital health centerCeeLite Technologies Work Phone: [phone] 17:34-0400Body orisei501.59 kgEricka GroovinAds Work Phone: [phone] 17:34-0400BP Zcktuuyvp50 mm[Hg]Ericka [employer] Work Phone: [phone] 17:34-0400BP Eiatjnoo544 mm[Hg]Ericka SAFCellMonroeAthic Solutions Work Phone: [phone] 17:34-0400BSA (Body Surface Area)2.37 m2Ericka [employer] Work Phone: [phone] 17:34-7763Rkourp594.61 cmEricka [employer] Work Phone: [phone] 17:34-0400Pulse (Heart Rate)88 /minEricka GroovinAds 70-19 14:30-0400Body Kudtvzrynbv64.6 [degF][facility], AL29-39-0399 14:30-0400BP Kxdthhzat26 mm[Hg][facility], RL38-11-4315 14:30-0400BP Oxwpprgu187 mm[Hg][facility], SC78-33-4952 14:30-0400Pulse (Heart Rate)80 /minSBarnesville Hospital, SA30-97-0705 14:30-0400Pulse Syxowvhq09 %[facility], PK78-17-4132 14:30-0400Respiratory Rate18 /minSBarnesville Hospital, AV91-37-3012 08:19-0400BMI (Body Mass Index)33.63 kg/d7HrrxlsSantiam Hospital, NA53-31-7917 08:19-0400Body nzunra376.49 kgSantiam Hospital, AQ83-79-1722 08:19-1342Vvfhri770.9 [facility], RO80-02-1656 17:01-0400BMI (Body Mass Index)34.24 kg/m2Ericka [employer] Work Phone: [phone] 17:01-0400Body Ogkjpysesfv22.5 [degF]Ericka EyeVerifyst. joseph's hospital health centerCeeLite Technologies Work Phone: [phone] 17:01-0400Body rhpbal790.95 kgEricka GroovinAds Work Phone: [phone] 17:01-0400BP Ccigeawcs33 mm[Hg]Ericka SAFCellMonroeAthic Solutions Work Phone: [phone] 17:01-0400BP Hyfvrblm503 mm[Hg]Ericka SAFCellMonroe iHandle [facility] Work Phone: [phone] 17:01-0400BSA (Body Surface Area)2.39 m2Ericka MiRTLE Medical [facility] Work Phone: [phone] 17:01-9823Mrpttt519.61 cmEricka [employer] Work Phone: [phone] 17:01-0400Pulse (Heart Rate)100 /minEricka AeternusLED [facility] Work Phone: [phone] 15:09-0500BMI (Body Mass Index)33.83 kg/m2 Edilberto [facility] Work Phone: [phone] 15:09-0500Body pyinci713.59 kgGuccigavi [facility] Work Phone: [phone] 15:09-0500BP Oyjmwgudy27 mm[Hg]Edilberto [facility] Work Phone: [phone] 15:09-0500BP Rkpcfbee478 mm[Hg]Edilberto [facility] 14-211577-62632355-27-2350 15:09-0500BSA (Body Surface Area)2.37 m2 Edilberto [facility] 13-087339-72251919-50-8850 15:09-7800Mrfxlq651.61 cmLeroy Sera [employer] 50-863210-31504282-11-8502 15:09-0500Pulse (Heart Rate)80 /minEdilberto [facility] 88-097132-62024998-84-7916 18:11-0500BMI (Body Mass Index)33.51 kg/m2 Ericka [employer] 91-681182-92123775-12-1523 18:11-0500Body gofbja052.13 kgEricka GroovinAds 39-334154-73287641-81-1574 18:11-0500BP Jmlmrokia99 mm[Hg]Ericka [employer] 83-818148-89588490-91-5375 18:11-0500BP Pgyxwfri268 mm[Hg]Ericka [employer] 11-041687-02141007-06-1053 18:11-0500BSA (Body Surface Area)2.37 m2Ericka [employer] 61-043019-25835677-22-2129 18:115712Jsfmga638.12 cmEricka [employer] 38-477964-32743224-47-2250 18:11-0500Pulse (Heart Rate)80 /minEricka GroovinAds 10-08-2019 17:27-0400BMI (Body Mass Index)33.96 kg/m2 Edilberto [facility] 10-08-2019 17:27-0400Body twviqf312.95 kgEdilberto [facility] 32-333232-18924003-30-7121 17:0BP Uwchjnapv29 mm[Hg]Edilberto [facility] 95-413570-88089811-70-4716 17:0BP Feburfot039 mm[Hg]Edilberto [facility] 37-612628-10876140-84-0459 17:BSA (Body Surface Area)2.39 m2 Edilberto [facility] 21-167272-62260550-41-5903 17:5962Kzugrz723.37 cmLjimenezy ThinkVidya 10-08-2019 17:Pulse (Heart Rate)102 /minEdilberto [facility] 90-422559-22294044-60-1843 13:BMI (Body Mass Index)34.3 kg/m2 Ericka [employer] Work Phone: [phone] 13:Body vtroeq918.08 kgEricka GroovinAds 71-576849-24833368-86-9302 13:0400BP Zdlmhntwv76 mm[Hg]Ericka Groov[employer] 65-211984-85753508-00-7458 13:BP Mupnqjwa855 mm[Hg]Ericka [employer] 93-392141-12009875-16-6855 13:BSA (Body Surface Area)2.4 m2Ericka [employer] 41-465955-98100571-15-5550 13:1201Kqinmy974.37 cmEricka [employer] 90-666705-88018103-01-8422 13:040Pulse (Heart Rate)88 /minEricka GroovinAds 29-952298-35323637-78-2840 13:490BMI (Body Mass Index)34.5 kg/m2 Edilberto [facility] 12-139918-36837253-16-6453 13:49-0400Body uhikbf056.76 kgEricka Muniz [employer] 54-824635-16099581-24-3149 13:49-0400BP Odbkkksdo94 mm[Hg]Edilberto [facility] 96-904143-85926642-77-4149 13:49-0400BP Yapyejwu608 mm[Hg]Edilberto [facility] Work Phone: [phone] 13:49-0400BSA (Body Surface Area)2.41 m2 Edilberto [facility] 08-109387-78605714-57-5575 13:49-9282Xzmpcu778.37 [employer] 27-169114-91150960-46-5390 13:49-0400Pulse (Heart Rate)90 /minEdilberto [facility] 04-181612-75114199-05-6451 13:49-1856Omcles869.76 [place] [employer]ya 34-186680-04893248-53-7842 13:45-0400BMI (Body Mass Index)34.38 kg/m2 Edilberto [facility] 70-356500-53615502-11-9551 13:45-0400Body gmhagl279.4 kgEricka GroovinAds 03-030046-13006959-97-7059 13:45-0400BP Jfbrzljwx13 mm[Hg]Edilberto [facility] 42-077903-06029022-10-2975 13:45-0400BP Bqxfcobt900 mm[Hg]Edilberto [facility] 36-133287-02517126-52-7844 13:45-0400BSA (Body Surface Area)2.39 m2 EdilbertoBuyRentKenya.com 30-115405-57701549-74-6922 13:45-7259Ajaqus318.61 [employer] 69-784374-30017999-12-6727 13:45-0400Pulse (Heart Rate)90 /minEdilberto [facility] 96-451629-70246305-19-8457 13:45-3768Evlsfu062.4 [place] [employer] 43-042844-24274834-37-8890 13:14-0500BMI (Body Mass Index)33.74 kg/m2 Edilberto [facility] 99-867020-43783997-61-5431 13:14-0500Body byqtdb576.27 Gerardo GroovinAds 28-189037-45707456-00-2799 13:14-0500BP Wiojwodzp99 mm[Hg]Edilberto [facility] 78-968194-02203728-90-6415 13:14-0500BP Keoadjtw184 mm[Hg]Edilberto [facility] 38-210557-36371474-03-3075 13:14-0500BSA (Body Surface Area)2.37 m2 Edilberto [facility] 84-891557-10013877-33-4046 13:14-6285Euaoim348.61 cmLeroy ThinkVidya 32-469149-21622034-81-1969 13:14-0500Pulse (Heart Rate)84 /minEdilberto [facility] 48-250744-70139599-43-7816 13:14-0796Gjiurv680.27 [place] [employer] 12-10-2018 13:18-0500Body ztenvs296.04 Gerardo GroovinAds 12-10-2018 13:18-0500BP Dsepseiby28 mm[Hg][employer] 12-10-2018 13:18-0500BP Czzyaysh535 mm[Hg][employer] 93-443811-51980751-92-8159 13:180500Pulse (Heart Rate)70 /minEdilberto [facility] Work Phone: [phone] 13:18-8965Jwdkys498.04 [place] [employer] Work Phone: [phone] 14:25-0400BMI (Body Mass Index)32.28 kg/m2 Edilberto [facility] Work Phone: [phone] 14:25-0400Body pxumcf410.96 Gerardo GroovinAds Work Phone: [phone] 14:25-0400BP Bctifsjue98 mm[Hg]Edilberto [facility] Work Phone: [phone] 14:25-0400BP Rglbiuja971 mm[Hg]Edilberto [employer] Work Phone: [phone] 14:25-0400BSA (Body Surface Area)2.34 m2 Edilberto [facility] Work Phone: [phone] 14:256404Cakklr979.88 cmLeroy [employer] Work Phone: [phone] 14:250400Pulse (Heart Rate)78 /minEdilberto [employer] Work Phone: [phone] 14:25-8031Dpejss638.96 [place] [employer] Work Phone: [phone] 13:34-0400BMI (Body Mass Index)32.55 kg/m2 Edilberto [facility] Work Phone: [phone] 13:34-0400Body ryxhea275.86 Gerardo GroovinAds 64-963327-99068395-19-2920 13:34-0400BP Lxhdyktkg211 mm[Hg]Edilberto [facility] Work Phone: [phone] 13:34-0400BP Sittkeji745 mm[Hg]Edilberto [employer] Work Phone: [phone] 13:34-0400BSA (Body Surface Area)2.35 m2 Edilberto [employer] Work Phone: [phone] 13:34-1021Vxxces443.88 Lisandra [employer] Work Phone: [phone] 13:34-0400Pulse (Heart Rate)104 /minEdilberto [facility] Work Phone: [phone] 13:34-3583Lvuaim065.86 [place] [employer] Work Phone: [phone] 13:50-0400BMI (Body Mass Index)33.36 kg/m2 Edilberto [facility] Work Phone: [phone] 13:50-0400Body jainvx624.59 kgEricka Muniz [employer] Work Phone: [phone] 13:50-0400BP Mvxnsuybu87 mm[Hg]Edilberto [facility] Work Phone: [phone] 13:50-0400BP Lszlvujm400 mm[Hg]Edilberto [employer] Work Phone: [phone] 13:50-0400BSA (Body Surface Area)2.38 m2 Edilberto [facility] Work Phone: [phone] 13:50-1861Sabzhw216.88 Lisandra [employer] Work Phone: [phone] 13:50-0400Pulse (Heart Rate)76 /[employer] Work Phone: [phone] 13:50-7415Geiehx975.59 Lincoln [employer] Work Phone: [phone] 13:48-0500BMI (Body Mass Index)33.09 kg/m2 Edilberto [facility] Work Phone: [phone] 13:48-0500Body .68 Gerardo Muniz [employer] Work Phone: [phone] 13:48-0500BP Yuuagxyrc08 mm[Hg]Edilberto [facility] Work Phone: [phone] 13:48-0500BP Xdjowwag409 mm[Hg]Edilberto [facility] Work Phone: [phone] 13:48-0500BSA (Body Surface Area)2.37 m2 [email or web address] Work Phone: [phone] 13:48-2019Rplfol660.88 cmLeroy [employer] Work Phone: [phone] 13:48-0500Pulse (Heart Rate)80 /minEdilberto Silecs Work Phone: [phone] 13:48-7132Msnsou743.68 Lincoln [employer] Work Phone: [phone] 13:30-0500BMI (Body Mass Index)33.63 kg/m2 Edilberto [facility] Work Phone: [phone] 13:30-0500Body ntatmf617.49 Gerardo [employer] Work Phone: [phone] 13:30-0500BP Gxafcqpgl70 mm[Hg][facility] Work Phone: [phone] 13:30-0500BP Lcbzyyag818 mm[Hg][facility] Work Phone: [phone] 13:30-0500BSA (Body Surface Area)2.39 m2 Edilberto [facility] 62-744156-06218545-49-7804 13:30-3780Hoqiqn449.88 Lisandra [employer] Work Phone: [phone] 13:30-0500Pulse (Heart Rate)84 /minEdilberto Silecs 45-184305-92250191-92-8851 13:30-1470Mtucas306.49 Lincoln [employer] 12-18-2017 17:18-0500BMI (Body Mass Index)33.63 kg/m2 Edilberto [facility] 38-355752-75483307-84-9210 17:18-0500Body bxenbp096.49 kgEricka [employer] 66-801150-02067206-91-3294 17:18-0500BP Zlzpagwlo05 mm[Hg]Edilberto [facility] 12-18-2017 17:18-0500BP Lvhavrvj067 mm[Hg]Edilberto [facility] 83-660228-99909830-97-2143 17:18-0500BSA (Body Surface Area)2.39 m2 [email or web address] 12-18-2017 17:183616Dpgnku847.88 Lisandra [employer] 12-18-2017 17:18-0500Pulse (Heart Rate)80 /minEdilberto Silecs 12-18-2017 17:18-2512Qbyrqk734.49 Lincoln [employer] 09-312990-15364142-41-1085 13:30-0400Body poxxbh408.6 kgEricka [employer] 08-558220-55727579-71-3525 13:30-0400BP Ipuorjkek58 mm[Hg]Edilberto [facility] Work Phone: [phone] 13:30-0BP Fgkiqedu346 mm[Hg]Edilberto [employer] Work Phone: [phone] 13:30-0Pulse (Heart Rate)70 /minEdilberto Silecs Work Phone: [phone] 13:301956Iszalb181.6 Lincoln Zamora [employer] Work Phone: [phone] 12:25BMI (Body Mass Index)32.01 kg/m2 Edilberto [facility] Work Phone: [phone] 12:25Body pyvlmp073.05 Gerardo Muniz [employer] Work Phone: [phone] 12:250BP Arjcnxlvx39 mm[Hg]Edilberto [employer] Work Phone: [phone] 12:25BP Rsqadpbx470 mm[Hg]Edilberto [employer] Work Phone: [phone] 12:BSA (Body Surface Area)2.33 m2 Edilberto [employer] Work Phone: [phone] 12:5033Gzpzna533.88 cmLeroy Zamora [employer] Work Phone: [phone] 12:25Pulse (Heart Rate)84 /minEdilberto Silecs Work Phone: [phone] 12:6664Uqlddg029.05 Lincoln [employer] Work Phone: [phone] 13:42-0400BMI (Body Mass Index)32.01 kg/m2 [email or web address] Work Phone: [phone] 13:42-0400Body .05 Gerardo Muniz [employer] Work Phone: [phone] 13:42-0400BP Crtptwntv32 mm[Hg]Edilberto [facility] Work Phone: [phone] 13:42-0400BP Rjpwmcqh031 mm[Hg]Edilberto [employer] Work Phone: [phone] 13:420400BSA (Body Surface Area)2.33 m2 Edilberto Sile[facility] Work Phone: [phone] 13:429229Tojvcf021.88 [employer] Frontiermichelle [employer] Work Phone: [phone] 13:42-0400Pulse (Heart Rate)80 /minEdilberto Silecs Work Phone: [phone] 13:42-7835Wqflzy617.05 [place] [employer] Work Phone: [phone] 13:210400BMI (Body Mass Index)32.35 kg/m2 Edilberto Sile[facility] Work Phone: [phone] 13:21-0400Body yxdlcu249.18 Gerardo Muniz [employer] Work Phone: [phone] 13:21-0400BP Cxdevugid54 mm[Hg]Edliberto Silecs Work Phone: [phone] 13:21-0400BP Jqgtcelp630 mm[Hg]EdilbertoBuyRentKenya.com Work Phone: [phone] 13:BSA (Body Surface Area)2.34 m2 EdilbertoBuyRentKenya.com Work Phone: [phone] 13:8632Pdzire121.88 [employer] Work Phone: [phone] 13:21-0400Pulse (Heart Rate)84 /minEdilberto Silecs Work Phone: [phone] 13:21-1479Fthqog527.18 [place] [employer] Work Phone: [phone] 11:37-0400BMI (Body Mass Index)32.75 kg/m2 Edilberto Silecs Work Phone: [phone] 11:37-0400Body onvfwn991.54 Gerardo GroovinAds 41-115334-15533624-36-9907 11:37-0400BP Hvfbvccdm36 mm[Hg]Edilberto Silecs 12-224108-01386962-14-6487 11:37-0400BP Kskdxrye352 mm[Hg]Edilberto Silecs Work Phone: [phone] 11:37-0400BSA (Body Surface Area)2.36 m2 Edilberto Silecs 69-296409-73049122-18-1069 11:37-6953Kxdloh281.88 cmLeroy [employer] Work Phone: [phone] 11:37-0400Pulse (Heart Rate)100 /minEdilberto Silecs Work Phone: [phone] 11:37-5512Yogaxn275.54 [place] [employer] 20-620592-38395206-71-4730 13:51-0500BMI (Body Mass Index)32.96 kg/m2 Edilberto Silecs Work Phone: [phone] 13:51-0500Body .22 Gerardo GroovinAds 67-732791-24521856-78-3732 13:51-0500BP Bxdumopxt89 mm[Hg]Edilberto Silecs 08-29 13:51-0500BP Wmvcdpan026 mm[Hg]EdilbertoBuyRentKenya.com Work Phone: [phone] 13:51-0500BSA (Body Surface Area)2.37 m2 [facility]il[facility]toBuy[employer]Ken[facility] Work Phone: [phone] 13:51-4291Rfdewn258.88 Lisandra [employer] Work Phone: [phone] 13:51-0500Pulse (Heart Rate)108 /minAnystream Work Phone: [phone] 13:51-9014Nxkxhv161.22 [place] [employer] Work Phone: [phone] 11:23-0400BMI (Body Mass Index)32.64 kg/m2 EdilbertoBuyRentKenya.com Work Phone: [phone] 11:23-0400Body gfyqdd964.14 Gerardo Muniz [employer] Work Phone: [phone] 11:23-0400BP Kqtqiaxkv19 mm[Hg][employer] Work Phone: [phone] 11:23-0400BP Bfiwaflm194 mm[Hg][employer] Work Phone: [phone] 11:23-0400BSA (Body Surface Area)2.31 m2 [facility]ilberto[employer]Kenya.[employer] Work Phone: [phone] 11:23-4213Mzhllf002.34 Lisandra [employer] Work Phone: [phone] 11:23-0400Pulse (Heart Rate)80 /minAnystream Work Phone: [phone] 11:23-6692Xtqene529.14 [place] [employer] 33-07 13:44-0400BMI (Body Mass Index)32.85 kg/m2 Edilberto Sile[facility] Work Phone: [phone] 13:44-0400Body plycom093.82 kgEricka Muniz [employer] Work Phone: [phone] 13:44-0400BP Iuormlbsd85 mm[Hg]Edilberto Sile[employer] Work Phone: [phone] 13:44-0400BP Rrhpyvjb356 mm[Hg]Edilberto Sile[employer] Work Phone: [phone] 13:440400BSA (Body Surface Area)2.31 m2 [employer] Work Phone: [phone] 13:44-5022Ozjdjr681.34 cmLeroy [employer] Work Phone: [phone] 13:44-0400Pulse (Heart Rate)96 /minEdilberto Silecs Work Phone: [phone] 13:44-8224Dbyydb613.82 [place] [employer] Work Phone: [phone] 14:54-0400BMI (Body Mass Index)32.71 kg/m2 Edilberto Sile[facility] Work Phone: [phone] 14:54-0400Body vcrefc737.37 kgEricka GroovinAds Work Phone: [phone] 14:54-0400BP Uzbcrogrw35 mm[Hg]EdilbertoBuyR[employer]Kenya.[facility] Work Phone: [phone] 14:54-0400BP Aarwnaqm099 mm[Hg]EdilbertoBuyRentKenya.com 99-259676-38880491-46-7461 14:54-0400BSA (Body Surface Area)2.31 m2 [employer] 00-424956-66421358-34-3329 14:54-9195Lmzlju764.34 Lisandra [employer] Work Phone: [phone] 14:54-0400Pulse (Heart Rate)88 /minEdilberto Silecs 54-123645-99198750-41-4273 14:54-8441Vcacrh826.37 kgEdilberto [employer] Work Phone: [phone] 13:34-0400BMI (Body Mass Index)33.89 kg/m2 [facility]ilbertoBuyR[facility]Kenya.com 28-597513-50569232-16-2358 13:34-0400Body opoxbf057.22 kgEricka GroovinAds Work Phone: [phone] 13:34-0400BP Bhsqyphgf24 mm[Hg]Edilberto Silecs Work Phone: [phone] 13:34-0400BP Cepiwtrq865 mm[Hg][employer] 30-503499-34040258-09-5471 13:34-0400BSA (Body Surface Area)2.35 m2 [employer] 17-719909-68466023-58-9106 13:34-1149Jepmxf980.34 Neil[employer] Frontiermichelle [employer] Work Phone: [phone] 13:34-0400Pulse (Heart Rate)100 /minEdilberto Silecs 27-113617-15910336-46-2708 13:34-4667Fanhcm669.22 [place] [employer] 21-036443-42762153-53-2597 13:00-0400BMI (Body Mass Index)33.47 kg/m2 [employer] 49-233189-99257961-11-0951 13:00-0400Body rfufqg378.86 kgEricka GroovinAds Work Phone: [phone] 13:00-0400BP Lapoeaxgv05 mm[Hg]Edilberto Silecs Work Phone: [phone] 13:00-0400BP Jatjxjxw329 mm[Hg]Edilberto Sile[employer] Work Phone: [phone] 13:BSA (Body Surface Area)2.34 m2 Edilberto [employer] Work Phone: [phone] 13:00-9545Tntdnb936.34 Lisandra [employer] Work Phone: [phone] 13:000400Pulse (Heart Rate)100 /minWesabegavi Silecs Work Phone: [phone] 13:009671Foioic624.86 [place] [employer] Work Phone: [phone] 12:BMI (Body Mass Index)34.31 kg/m2 Edilberto Sile[employer] Work Phone: [phone] 12:290400Body .59 Gerardo GroovinAds Work Phone: [phone] 12:29-0400BP Zhinoroia43 mm[Hg]EdilbertoBuyRentKenya.com Work Phone: [phone] 12:29-0400BP Cgvrnmfh738 mm[Hg]Edilberto Silecs Work Phone: [phone] 12:29BSA (Body Surface Area)2.36 m2 EdilbertoBuyR[employer]Kenya.[employer] Work Phone: [phone] 12:293644Fiasix315.34 Lisandra [employer] Work Phone: [phone] 12:290400Pulse (Heart Rate)100 /minEdilberto Silecs 93-756104-57232478-67-6920 12:29-0254Ffdzlx830.59 [place] [employer] 18-381129-71017341-80-0671 13:52-0400BMI (Body Mass Index)34.07 kg/m2 [facility]il[facility]to[facility]Kenya.com 92-816742-88169358-94-3264 13:52-0400Body hbmmsu408.82 Gerardo GroovinAds 60-009131-59664295-22-8758 13:52-0400BP Vsixdohgi22 mm[Hg][employer] 17-462892-46180359-07-1892 13:52-0400BP Trnozicv720 mm[Hg][employer] 42-524641-58034185-97-1060 13:52-0400BSA (Body Surface Area)2.36 m2 [facility]il[facility]to[employer]Ken[facility] 70-897060-64186718-69-0885 13:52-2645Xowals340.34 cmLeroy [employer] 07-910642-31232706-81-5765 13:52-0400Pulse (Heart Rate)100 /minEdilberto Silecs 91-171139-37716160-16-6174 13:52-7636Mibxlj495.82 [place] [employer] 55-762914-33013626-75-6207 14:53-0400BMI (Body Mass Index)34.31 kg/m2 [facility]il[facility]to[facility]R[employer]Ken[facility].com 96-452537-56572772-57-8992 14:53-0400Body hdrdov122.59 Gerardo GroovinAds 56-948714-84436972-14-1748 14:53-0400BP Mdajayghs51 mm[Hg][employer] 87-170163-86642729-07-2814 14:53-0400BP Hbrcsuzy228 mm[Hg]Edilberto Silecs 60-695883-72191968-95-9764 14:53-0BSA (Body Surface Area)2.36 m2 Edilberto [employer] Work Phone: [phone] 14:53-8377Hkzpvv559.34 Lisandra [employer] 96-007446-06722597-22-8692 14:53-0400Pulse (Heart Rate)120 /minEdilberto Silecs 18-719823-58804663-32-4693 14:53-0916Oikvkc898.59 [place] [employer] 60-744156-67629454-17-7894 13:24-0400BMI (Body Mass Index)34.38 kg/m2 [facility]il[facility]to[facility]Kenya.com 43-696027-79336586-01-9590 13:24-040Body jmiykv233.81 Gerardo Muniz [employer] 50-485964-90699642-53-3438 13:24-0400BP Fqqpulrer62 mm[Hg]Edilberto Silecs 38-660084-58085386-72-0328 13:24-0400BP Cbfndkje536 mm[Hg]Edilberto Silecs 33-065472-36678071-28-8865 13:240BSA (Body Surface Area)2.37 m2 Edil[facility]to[employer]Ken[facility].[employer] 91-270215-74097344-11-9059 13:24-2163Hgnzwh228.34 Lisandra [employer] 85-285128-84911591-84-7802 13:24-0400Pulse (Heart Rate)108 /minWesabegavi Silecs 58-702979-47426865-64-9684 13:24-6052Subxfi591.81 [place] [employer] 54-318540-21400080-22-0018 11:47-0400BMI (Body Mass Index)34.38 kg/m2 Edilberto Silecs Work Phone: [phone] 11:47-0400Body jliwud646.81 kgEricka GroovinAds Work Phone: [phone] 11:47-0400BP Nddrtapon36 mm[Hg]Edilberto Silecs Work Phone: [phone] 11:47-0400BP Qyyyujon216 mm[Hg]Edilberto Silecs Work Phone: [phone] 11:47-0400BSA (Body Surface Area)2.37 m2 [employer] Work Phone: [phone] 11:47-5827Lfoivb195.34 cmLeroy [employer] Work Phone: [phone] 11:47-0400Pulse (Heart Rate)116 /minEdilberto Silecs Work Phone: [phone] 11:47-2557Gmsejl098.81 [place] [employer] Work Phone: [phone] 12:48-0400BMI (Body Mass Index)35.15 kg/m2 [facility]ilberto[facility]Kenya.[facility] Work Phone: [phone] 12:48-0400Body kcxatd911.31 kgEricka GroovinAds Work Phone: [phone] 12:48-0400BP Ozblvtbsd07 mm[Hg]Edilberto Silecs Work Phone: [phone] 12:48-0400BP Knancubp467 mm[Hg][employer] Work Phone: [phone] 12:48-0400BSA (Body Surface Area)2.39 m2 [employer] Work Phone: [phone] 12:48-9718Nikqxf890.34 Lisandra [employer] Work Phone: [phone] 12:48-0400Pulse (Heart Rate)76 /minEdilberto Silecs Work Phone: [phone] 12:48-1563Qzyxfs160.31 kgEdilberto [employer] Work Phone: [phone] 15:06-0500Pulse Uoklkvvg34 %Edilberto [employer] Work Phone: [phone] 15:06-1766EoK3% (BldA) [Mass fraction]97 % Ericka MunizOrphazyme Work Phone: [phone] 14:14-0500BMI (Body Mass Index)36.26 kg/m2 Edilberto Silecs Work Phone: [phone] 14:14-0500Body Isccqolctim25.1 [degF]Edilberto Silecs Work Phone: [phone] 14:14-0500Body cgeink040.94 kgEricka Muniz [employer] Work Phone: [phone] 14:14-0500BP Owopqeubt11 mm[Hg]Edilberto Silecs Work Phone: [phone] 14:14-0500BP Spvgmqgs279 mm[Hg]Edilberto Silecs Work Phone: [phone] 14:14-0500BSA (Body Surface Area)2.43 m2 Edilberto Silecs Work Phone: [phone] 14:14-6200Fvhhks691.34 Lisandra [employer] Work Phone: [phone] 14:14-0500Pulse (Heart Rate)112 /minEdilberto Silecs Work Phone: [phone] 14:14-0500Respiratory Rate20 /minEdilberto Silecs Work Phone: [phone] 14:14-7850Lejjoy179.94 [place] [employer] 37-941177-85452315-37-2149 13:36-0500BMI (Body Mass Index)36.26 kg/m2 Edilberto Silecs Work Phone: [phone] 13:36-0500Body jcogxf710.94 kgEricka Muniz [employer] 91-739083-37584566-79-8827 13:36-0500BP Pdslfoqgf99 mm[Hg]Edilberto Silecs 86-793863-39655424-21-1416 13:36-0500BP Szjaaldf193 mm[Hg]Edilberto Silecs 79-620849-47579164-99-5632 13:36-0500BSA (Body Surface Area)2.43 m2 Edilberto Silecs Work Phone: [phone] 13:36-7902Okwspo876.34 cmLeroy [employer] 44-299546-35178428-74-0751 13:36-0500Pulse (Heart Rate)76 /minEdilberto Silecs 01-522992-21631283-87-8729 13:36-6901Qomrxn745.94 [place] [employer] 53-993161-53698659-36-0920 13:00-0500BMI (Body Mass Index)36.4 kg/m2 Edilberto Silecs 02-202657-51118672-06-8847 13:00-0500Body Wavhbnajlns66.6 [degF]Edilberto Silecs 63-716542-11597227-80-0849 13:00-0500Body .39 kgEricka GroovinAds Work Phone: [phone] 13:00-0500BP Knqnphoxh00 mm[Hg]Edilberto Silecs Work Phone: [phone] 13:00-0500BP Eozftgge639 mm[Hg]Edilberto Silecs Work Phone: [phone] 13:00-0500BSA (Body Surface Area)2.44 m2 Edilberto Silecs Work Phone: [phone] 13:00-0012Vqeixv721.34 Lisandra [employer] Work Phone: [phone] 13:00-0500Pulse (Heart Rate)120 /minEdilberto Silecs Work Phone: [phone] 13:00-6575Iztkrn333.39 kgEdilberto [employer] Work Phone: [phone] 13:38-0500BMI (Body Mass Index)35.98 kg/m2 Edilberto Silecs Work Phone: [phone] 13:38-0500Body Agowwwpawvc97.8 [degF]Edilberto Silecs Work Phone: [phone] 13:38-0500Body xbjjeh061.03 kgEricka Muniz [employer] 75-885728-20396768-94-4048 13:38-0500BP Wmxppxhyw93 mm[Hg]Edilberto Silecs 04-700786-64142852-61-2379 13:38-0500BP Surcizyf238 mm[Hg]EdilbertoBuyRentKenya.com 25-942936-49487660-62-3081 13:38-0500BSA (Body Surface Area)2.42 m2 EdilbertoBuyRentKenya.com 09-110018-79302993-51-5767 13:38-2434Roagal063.34 [employer] 11-24-2015 13:380507Pulse (Heart Rate)84 /minEdilberto EndosenseRogerZila Networksyaw [employer]oze 11-24-2015 13:382142Gaquuu095.03 kgEdilberto ThinkVidya Encounters Encounter DateEncounter TypeCare ProviderFacilityStart: 04-08-2025 End: 57-71-3542Mavqgk outpatient new 45 minutesKimmie Yarbrough MD Work Phone: [facility] Sen[facility] EndocrinologyComment on above: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); Low libido; Encounter for dietary consultation; Class 1 obesity due to excess calories without serious comorbidity with body mass index (BMI) of 34.0 to 34.9 in adultStart: 04-08-2025 End: 73-97-4425Xscuxqbebeto Yarbrough MD Work Phone: [facility] EndocrinologyStart: 04-08-2025 End: 04-55-9908Inqjvmbebeto Yarbrough MD Work Phone: [facility] EndocrinologyStart: 04-08-2025 End: 80-75-1280dsuounngfoBREIL F SABBAGHNot AvailableStart: 27-00-6482Hkmnth outpatient visit 25 minutesWemadan Magana Other bvma OfficeStart: 38-43-4484Iejrg S Schworm Other [facility] OfficeStart: 38-54-2177Qgooru outpatient visit 25 minutesEricka Muniz Other bvma OfficeStart: 71-22-1995Rfmk R Fox Other [facility] OfficeStart: 12-20-2024 End: 61-46-9866fedhiobpizUzlltem Ryan Denike DOFacility:[facility] Start: 08-14-2024 End: 87-05-3115cgcxbgpgpjFfpz R Fox MD Work Phone: [facility] Work Phone: Start: 08-14-2024 End: 48-09-7850Ozkcmhx encounter procedureEricka Muniz MD Work Phone: [facility] Physician [facility] Work Phone: Start: 64-67-1525Ygz-patient / Non-visitEricka Muniz MD Work Phone: [facility] Work Phone: Start: 07-19-2024 End: 88-37-5273Gbxjyyf encounter procedureEricka Muniz MD Work Phone: [facility]Res[facility] Work Phone: Start: 07-19-2024 End: 53-34-7392fcyddrdoebNnvg R Fox MD Work Phone: [facility] Work Phone: Start: 06-21-2024 End: 59-15-4175xxkidauppwNpdzv [facility]aadvanced [facility] INDIAN TRADER-CNPFacility:[facility] HospitalyStart: 06-12-2024 End: 08-05-9650jnddcffjexOplqh Beth Eziooegigiadvanced surgical hospital INDIAN TRADER-CNPFacility:[facility] HospitalyStart: 00-12-4644Bdklyp outpatient visit 25 minutesWemadan Magana Other [facility] OfficeStart: 31-18-2489Pnvl R Fox Other [facility] OfficeStart: 81-26-7734Yqyzic outpatient visit 25 minutesEricka Muniz Other bvMA OfficeStart: 01-11-2024 End: 23-12-9925jaocqbdvbzParom Beth Kloepfer INDIAN TRADER-CNPFacility:[facility]art: 12-14-2023 End: 99-54-6316Zyglanhkl department patient visitRADHA Upton Work Phone: [facility]-Emergency Room Work Phone: Start: 12-03-2023 End: 79-33-8796Dvndpftio department patient visitAPRDouglas Upton Work Phone: [facility]Emergency [facility] Work Phone: Start: 11-14-2023 End: 76-28-7224Oonnzz outpatient visit 25 minutesEricka Muniz Other bvma OfficeStart: 97-94-4144Gydx Pablo Muniz Other bvma OfficeStart: 11-56-1701Hpiw examination performed Ericka [employer] Start: 05-50-7561Vbhdoxgbt encounterPaarelis Jose Gelaciomary DO Work Phone: [facility] ENT SANDUSKYStart: 06-16-2023 End: 22-54-1814Lit-admission assessmentPETER D [facility][NOTE 3] [facility] Start: 67-90-3722Invzkb outpatient visit 15 minutesEricka Muniz Other bvma OfficeStart: 77-58-2271EwaarEdilberto Zamora Other bvma OfficeStart: 16-13-0516Pmmi examination performed Ericka [employer] Start: 02-30-0389Rnlqng outpatient visit 25 minutes Edilberto Zamora Other bvma OfficeStart: 61-69-7540btpxcrcclmYZBGH D HIGHLANDERFacility:E8Nnpac: 07-28-2022 End: 54-52-0014esxmqcefjuBNZEG D HIGHLANDERFacility:D7Yjvxe: 98-61-4133WegGqtun L Schroeder Other bvma OfficeStart: 55-99-9709WmtatEdilberto Zamora Other bvKATHLEEN OfficeStart: 28-81-5385Prhliw ServicesEricka Muniz Other bvma OfficeStart: 35-28-6987Pzxn examination performed Edilberto Schaefferst. [facility] health centeryaw [facility] Start: 07-27-2022 End: 46-49-1192Ggdxdx outpatient visit 25 minutesLergavi Lawrence Zamora Other bvma OfficeStart: 06-23-2022 End: 63-16-9577cckfpczodvECRMM D [facility][NOTE 3]Facility:S4Bmchr: 05-27-2022 End: 69-49-5115wvcsdnkkqmRST [facility] Work Phone: Start: 05-27-2022 End: 33-67-4771Ljzczrsxvy [facility]ound Care [place]: 05-26-2022 End: 06-81-6677yprhfwvornEXU [facility] Work Phone: Start: 05-26-2022 End: 32-99-8885Vuttphz encounter procedureOhiohealth [facility]-CT Strub RdStart: 72-14-3906Demgbceiif [facility]- Wound Care [place]Start: 04-22-2022 End: 81-10-5246bhjflxxpdlNCY [facility] Work Phone: Start: 04-22-2022 End: 72-78-0728Zfbotqy encounter procedureOhio[facility] Main CampusStart: 04-21-2022 End: 34-05-4069ghsjcldjnbLPD [facility] Work Phone: Start: 04-21-2022 End: 03-41-5885Kvxvveq encounter procedureOhiohealth [facility]tr-MRI Main CampusStart: 75-52-7094Xmxqvfoavu [facility]- Wound Care [place]Start: 04-01-2022 End: 87-92-2516Feuyzrcku department patient visitOhiohealth [facility] Ctr- Emergency RoomStart: 24-83-4371Dhcldr outpatient new 20 minutesJeremy P Dyana Other BVKATHLEEN OfficeStart: 36-21-5909Tjdrox outpatient visit 15 minutesJeremy P Dyana Other BVKATHLEEN OfficeStart: 21-16-0302Tncamt outpatient visit 15 minutesJeremy P Dyana Other BVKATHLEEN OfficeStart: 44-87-4557Arqynd outpatient visit 15 minutesJeremy P Dyana Other BVKATHLEEN OfficeStart: 01-83-6029TamIooa R Muniz Other BVKATHLEEN OfficeStart: 75-15-0919Vvjq R Muniz Other BVKATHLEEN OfficeStart: 25-44-9312Bjhsew outpatient visit 15 minutesMark R Muniz Other BV[facility] OfficeStart: 80-66-2780CojUrpsd L Schroeder Other [facility] OfficeStart: 46-18-6537RjspnEdilberto Zamora Other [facility] OfficeStart: 22-16-8900Voasss outpatient visit 15 minutesJeremy P Dyana Other [facility] OfficeStart: 90-18-5975Iauk examination performed [facility] Start: 80-41-7992Btmaja outpatient visit 25 minutes Edilberto Zamora Other BVKATHLEEN OfficeStart: 61-30-3302Vahsro outpatient visit 25 minutesJeremy P Dyana Other [facility] OfficeStart: 77-63-6895Bwmgwu outpatient new 45 minutesJeremy P Dyana Other [facility] OfficeStart: 80-46-1423Ofxwtd ServicesJeremy P Dyana Other [facility] OfficeStart: 24-18-9312Wlrkof outpatient visit 25 minutesMark R Muniz Other BV[facility] OfficeStart: 21-03-9004Aahi examination performed Edilberto ZamoraDallas CenterCyntellect [facility] Start: 83-80-3211Teldzh outpatient visit 25 minutes Edilbertogavi Zamora Other BVKATHLEEN OfficeStart: 50-33-8268LfmQztfk L Schroeder Other [facility] OfficeStart: 02-08-2022Medicare LabGuccioy Melinda Zamora Other [phone]-SaiZnmru: 75-90-6734Seqol Melinda Zamora Other BVKATHLEEN OfficeStart: 09-09-2021Medicare LabGuccioy Melinda Zamora Other [phone]-SzaAthea: 56-09-6244Gbblt Melinda Zamora Other [phone]-PrsSutgj: 67-32-0977Bbae examination performed Edilberto ZamoraBranch2 [facility] Start: 15-05-0800Lowdkc outpatient visit 25 minutes Edilbertogavi Zamora Other BV[facility] OfficeStart: 83-89-8934CxrCdvu Pablo Muniz Other BV[facility] OfficeStart: 48-25-7443Fbpn Pablo Muniz Other [facility] OfficeStart: 55-30-1449Gyyfbl outpatient visit 25 minutesEricka Shah Muniz Other BV[facility] OfficeStart: 42-78-0632Hkmrucoiv for general adult medical examination without abnormal findingsHeron EktronDallas CenterCyntellect [facility] Start: 14-88-2435Qndq exam performedEdilberto Fraziernchard iHandle [facility] Start: 76-00-1820Hxxwcn outpatient visit 25 minutes Edilbertogavi Zamora Other [facility] OfficeStart: 03-02-2021Medicare LabEdilberto Jaraeder Other [phone]-YjaZoijz: 62-28-4339Fycggbriana Zamora Other [phone]-GjkQessq: 71-52-9118Slbfrr outpatient visit 15 minutesMark Pablo Muniz Other [facility] OfficeStart: 48-23-5457Afcvsq outpatient visit 15 minutesMark Pablo Muniz Other [facility] OfficeStart: 11-59-7207Xjpdvl outpatient visit 15 minutesMark Pablo Muniz Other [facility] OfficeStart: 09-29-2020Medicare LabGuccigavi Melinda Zamora Other [phone]-YylXuogs: 36-58-6137Pgnmn Melinda Zamora Other [phone]-HndSbeaz: 14-74-8125Pvmc exam performedCopper Springs Hospitalgavi ZamoraBelle[facility] Invacio [facility] Start: 10-93-5055Lyukzt outpatient visit 25 minutes Edilberto Zamora Other [facility] OfficeStart: 03-25-2020 End: 27-26-8647Ppilabi encounter procedureReg[facility] Start: 03-25-2020 End: 23-46-7170Hqcxfukrkv hospital visit by [facility] MRIComment on above:Right knee pain, unspecified chronicityStart: 16-36-6398Zgrieu outpatient visit 15 minutesEricka Muniz Other [facility] OfficeStart: 02-12-2020 End: 14-31-6514Ptvmyqe encounter procedureMARK Pablo [facility] HospitalStart: 02-12-2020 End: 15-20-8386Qoakoczild hospital visit by [facility] MRIComment on above:Acute pain of right shoulderStart: 95-70-5046Oytkoj outpatient visit 15 minutesEricka Muniz Other [facility] OfficeStart: 12-28-2019 End: 96-27-5207Iakjvcpgmr hospital visit by Cathy Escalona Work Phone: mthz ORComment on above: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, initial encounter (Primary Dx)Start: 46-66-0205Djbpyw outpatient visit 25 minutesEdilberto Zamora Other [facility] OfficeStart: 12-26-2019 End: 14-94-8340Lnvedka [facility]STr[facility] Start: 12-26-2019 End: 81-29-0231Qcayuwjqhw hospital [facility] by physicianDo[facility] Lab Drawing RoomMTHZ LaboratoryComment on above:ArrivedStart: 12-24-2019 End: 58-60-1240Azszcud encounter procedureSTrinity [facility] Start: 12-24-2019 End: 48-38-5852Rejkjfjrzm hospital [facility] by physicianDo[facility] Covid19 Pat Screening ScheduleMTHZ EKGStart: 82-28-3038TylWczfx L Schroeder Other [facility] OfficeStart: 00-67-8022Xplpz L Schroeder Other [facility] OfficeStart: 81-28-4833Mzvkrg outpatient visit 15 minutesMark Cinepapaya Other [facility] OfficeStart: 29-96-2722Diornu outpatient visit 25 minutesMark R Ektron Other [facility] OfficeStart: 08-44-8879SdsDerm R Ektron Other [facility] OfficeStart: 73-10-6447Gvsw R Ektron Other [facility] OfficeStart: 67-05-6109Vpzx exam [email or web address] Start: 97-13-2585Rzuatn outpatient visit 25 minutes Edilberto Zamora Other [facility] OfficeStart: 28-78-0636RjdYhdfh L Schroeder Other [facility] OfficeStart: 87-01-6915ChlosEdilberto Zamora Other [facility] OfficeStart: 51-37-3520Hkmgxkvhh for general adult medical examination without abnormal findingsCopper Springs [email or web address] Start: 39-78-5056Vempzxm general medical examination at a health care facilityHeron [facility] Start: 34-76-2532Xjanadkq preventive med est patient 40-64yrsMark R Muniz Other [facility] OfficeStart: 70-47-8818IaaVoxn R Muniz Other BVZD OfficeStart: 98-84-9542Dokb R Muniz Other [facility] OfficeStart: 91-43-4798Qubs exam performedLergavi Silecs Start: 36-14-2441Dzqvge outpatient visit 25 minutes Edilberto Melinda JaraZamora Other [facility] OfficeStart: 88-94-0961Evgboi-up visitBoston City HospitalSuperSecret Start: 87-72-1449Lqcthd outpatient visit 5 minutesBoston City HospitalSuperSecret Start: 41-38-2233Sjsgqmymlfvcm follow-up visitEdilberto Silecs Start: 84-05-3454QtrugstknTuicb Trudy Other [facility] OfficeStart: 13-69-4922Stldu Trudy Other BV OfficeStart: 14-47-2259GxiYgtoa L Schroeder Other [facility] OfficeStart: 42-73-6537JvcqtEdilberto Zamora Other [facility] OfficeStart: 95-85-9073IaabeoqaxLcfae Trudy Other [facility] OfficeStart: 48-01-7117Yusac Trudy Other [facility] OfficeStart: 24-92-6407Ijklni outpatient new 20 minutesChase Trudy Other [facility] OfficeStart: 89-34-2257Ankffyqof for general adult medical examination without abnormal findingsCopper Springs HospitalBuyRentKenya.com Start: 95-98-1982Qkhyqli general medical examination at a health care facilityMark FlavioBranch2 Inc Start: 17-09-4818Erkwta outpatient visit 15 minutesEricka Muniz Other [facility] OfficeStart: 62-88-5581Uwyjfm ServicesNatty Paniagua Other [facility] OfficeStart: 06-49-8538Mneumyxa naomi Jungam Other [facility] OfficeStart: 50-79-9146Xhvh exam performedLergavi Silecs Start: 56-90-8147Lwitvj outpatient visit 25 minutes Edilberto Zamora Other [facility] OfficeStart: 24-90-7933AphBubun L Schroeder Other [facility] OfficeStart: 75-27-4135Wfuxn L Schroeder Other [facility] OfficeStart: 32-58-1384Iukwqpl encounter procedureMAUDAY Ledezma [facility] PhysiciansStart: 10-12-2018 ProcedureDarigoberto Morris Other op BVHStart: 15-85-4724Mbmoi J Meier Other op BVHStart: 33-28-6823Hhzj exam performedEdilberto Zamora Other [facility] OfficeStart: 45-37-6351Colwfg outpatient visit 25 minutesEdilberto Zamora Other [employer] Start: 11-20-9402Yjrfdc ServicesEdilberto Zamora Other [facility] OfficeStart: 72-93-5660AqdsiEdilberto Zamora Other [facility] OfficeStart: 08-60-9622Jhvjjjkzl for general adult medical examination without abnormal findingsGuccigavi Silecs Start: 73-54-4616Pytbmjl general medical examination at a health care facilityLeroy SeraBranch2 Inc Start: 39-03-4303Luuzxb outpatient visit 25 minutesMark R Muniz Other [facility] OfficeStart: 57-18-8090XabRglb R Muniz Other [facility] OfficeStart: 87-79-9472Jheu R Muniz Other [facility] OfficeStart: 19-99-7780Xxiwxs ServicesLergavi Zamora Other [facility] OfficeStart: 13-86-0592Dastu Melinda Zamora Other [facility] OfficeStart: 43-83-8785RtjqthpzsIyrniwi Gigi Josederrickjorge Other op BVHStart: 70-26-7995Ecztwfw Gigi Joseschjorge Other op BVHStart: 61-14-9009Cmdt exam performedLergavi Zamora Other [facility] OfficeStart: 76-23-3179Klznig outpatient visit 25 minutesLeroy Melinda Zamora Other [employer] Start: 00-42-0643UlfNukln Melinda Zamora Other [facility] OfficeStart: 82-11-4423Zvpoa L Schroeder Other [facility] OfficeStart: 18-91-3614Baya-Kal Muniz Other [facility] OfficeStart: 04-20-2018 End: 15-78-1571Pkhm R Muniz Other [facility] OfficeStart: 33-07-0670Dkwypo ServicesPetecarmina Paniagua Other [facility] OfficeStart: 78-89-4334Juah exam performedLergavi Zamora Other [facility] OfficeStart: 22-74-3707Dvwaxo outpatient visit 25 minutesLergavi Zamora Other [employer] Start: 17-06-6170YxlJyojl L Zamora Other [facility] OfficeStart: 50-31-9313Cagza L Zamora Other [facility] OfficeStart: 11-93-9551Iqours outpatient visit 25 minutesMark R Muniz Other [facility] OfficeStart: 54-84-8049InzIevp R Muniz Other [facility] OfficeStart: 19-42-5689Vlqq R Muniz Other [facility] OfficeStart: 49-35-4930Tocmds ServicesMark R Muniz Other [facility] OfficeStart: 07-65-4378Jcan R Muniz Other [facility] OfficeStart: 56-11-4143Dgby exam performedLeroy L Zamora Other [facility] OfficeStart: 23-58-4877Tkewwz outpatient visit 25 minutesLeroy L Zamora Other [facility] [employer] Start: 84-29-6676Sbnobg ServicesMark R Muniz Other [facility] OfficeStart: 62-11-9595Xihq R Muniz Other [facility] OfficeStart: 13-76-6537HybLsldg L Zamora Other [facility] OfficeStart: 06-32-6472Amcnh L Zamora Other [facility] OfficeStart: 45-52-4571Uublml ServicesLeroy L Zamora Other [facility] OfficeStart: 16-58-6735Xhjah L Zamora Other [facility] OfficeStart: 46-51-7258Ytguyu outpatient visit 25 minutesMark R Muniz Other [facility] OfficeStart: 55-75-9950MaaZrka R Muniz Other [facility] OfficeStart: 34-72-4749Eucy R Muniz Other [facility] OfficeStart: 20-62-9917Sizdgd ServicesNatty Paniagua Other [facility] OfficeStart: 00-25-1749Dhjaqvhs z Graham Other [facility] OfficeStart: 46-65-1309Lprp exam performedEdilberto ZamoraOrphazyme Start: 47-94-2550Epjptx outpatient visit 25 minutes Edilbertogavi Zamora Other [facility] OfficeStart: 14-81-6604IonFzoag L Schroeder Other [facility] OfficeStart: 62-55-8198Mmfgt L Schroeder Other [facility] OfficeStart: 41-29-3818Rsiblp outpatient visit 15 minutesMark Pablo Muniz Other [facility] OfficeStart: 67-14-0688Cfwu exam performedLergavi Zamora Other [facility] OfficeStart: 68-55-4082Rszkjd outpatient visit 25 minutesLergavi Zamora Other [employer] Start: 42-15-9341GiaQhltn L Schroeder Other [facility] OfficeStart: 15-52-6094Dmlco L Schroeder Other [facility] OfficeStart: 14-59-6728Dnkhfm outpatient visit 25 minutesEricka R Muniz Other [facility] OfficeStart: 02-17-2017 End: 01-37-1921Mluii SrvcMark R Muniz Other [facility] OfficeStart: 02-17-2017 End: 19-66-1763Zpes R Muniz Other [facility] OfficeStart: 63-93-9458Stxhao outpatient visit 25 minutesMark R Muniz Other [facility] OfficeStart: 90-73-3599Whng exam performedLergavi L Zamora Other [facility] OfficeStart: 81-06-8011Bmnavr outpatient visit 25 minutesLeroy L Zamora Other [employer] Start: 56-48-8841VpzFkewg L Zamora Other [facility] OfficeStart: 92-75-5504Iwcrq L Zamora Other [facility] OfficeStart: 15-35-0267Rddrcr outpatient visit 25 minutesMark R Muniz Other [facility] OfficeStart: 01-60-5598UsvBfik R Muniz Other [facility] OfficeStart: 52-23-9229Ljfj R Ektron Other [facility] OfficeStart: 02-76-6529Iqxms vcDarigoberto Morris Other [facility] OfficeStart: 77-94-9198Pgooy J Meier Other [facility] OfficeStart: 63-55-7582Pzqi exam performedLeroy L Zamora Other [facility] OfficeStart: 69-17-2394Lrdind outpatient visit 25 minutesLeroy L Zamora Other [employer] Start: 62-28-2870MzwHefly L Zamora Other [facility] OfficeStart: 34-75-4925Nkmzz L Zamora Other [facility] OfficeStart: 35-54-1445Dkqmxs outpatient visit 25 minutesMark R Muniz Other [facility] OfficeStart: 03-25-3183Azzu exam performedLeroy L Zamora Other [facility] OfficeStart: 96-95-6888Zqvmks outpatient visit 25 minutesLeroy L Zamora Other [employer] Start: 75-80-0225VadXruep L Zamora Other [facility] OfficeStart: 12-30-4019Xbrbq L Zamora Other [facility] OfficeStart: 62-28-9071Zwpjaz outpatient visit 15 minutesMark R Muniz Other [facility] OfficeStart: 38-39-7378Wszslo outpatient visit 15 minutesMark R Muniz Other [facility] OfficeStart: 54-25-7541Mtqgkp outpatient visit 15 minutesMark R Muniz Other [facility] OfficeStart: 24-01-6417Hrifsv outpatient visit 15 minutesLergavi L Zamora Other [facility] OfficeStart: 28-83-0922SfdCdcao L Zamora Other [facility] OfficeStart: 34-12-2601Vqexx L Zamora Other [facility] OfficeStart: 04-87-5091Woohkg outpatient visit 25 minutesMark R Muniz Other [facility] OfficeStart: 71-17-7861PsuNxxeg L Zamora Other [facility] OfficeStart: 44-48-1125Juxlp L Zamora Other [facility] OfficeStart: 35-95-2775Wwew exam performedLergavi L Zamora Other [facility] OfficeStart: 58-43-2009Deeakp outpatient visit 25 minutesLergavi L Zamora Other [employer] Start: 00-18-2534PziOqmzr L Zamora Other [facility] OfficeStart: 39-24-4696Zfdzf L Zamora Other [facility] OfficeStart: 85-61-8010Sjirzr outpatient visit 15 minutesMark R Muniz Other [facility] OfficeStart: 46-98-4497Ysrm exam performedLergavi ZamoraOrphazyme Start: 71-86-6599Tcbggs consultation new/estab patient 80 minLeroy L Zamora Other [facility] OfficeStart: 31-11-6703Shlymh ServicesMark R Muniz Other [facility] OfficeStart: 69-72-7010Fyue R Muniz Other [facility] OfficeStart: 26-13-6648Nbafpt outpatient visit 25 minutesMark R Muniz Other [facility] OfficeStart: 75-08-9611AadbfvpupSbam D Watson Other op BVHStart: 61-43-6507Jbhs D Watson Other OP BVHStart: 86-48-8945Riayia consultation new/estab patient 60 minJesus Del Cid Other [facility] OfficeStart: 43-30-8315Bmrcdc ServicesMark R Muniz Other [facility] OfficeStart: 67-31-6328Npno R Muniz Other [facility] OfficeStart: 43-65-1600Ndeqq SrvcMark R Muniz Other [facility] OfficeStart: 69-76-7317Ncal R Muniz Other [facility] OfficeStart: 88-22-3338VkcJdtg R Muniz Other [facility] OfficeStart: 08-05-2015 End: 50-14-2544Etvu R Muniz Other [facility] OfficeStart: 08-05-2015 End: 31-96-9753Fpahz SrvcMark R Muniz Other [facility] OfficeStart: 61-85-1827Dvhxzj outpatient visit 15 minutesLindsay Kimball Other [facility] OfficeStart: 77-31-8993Akcsap outpatient new 45 minutesMark R Muniz Other [facility] Office Procedures DateProcedureProcedure DetailPerforming ClinicianStart: 02-34-9164Fkxnokzbnxxbp metabolic panelMark FoxStart: 57-02-8374Puaewxikkw A1c measurementMark FoxStart: 72-46-1233Xquvr panelMark FoxStart: 85-47-0518Weikp SchwormStart: 07-19-2024 Plain chest X-rayEricka Muniz MD Work Phone: Start: 47-89-9362Wcpxsafvqpwsq metabolic panelMark Muniz Start: 85-13-5364Shwyadcwak A1c measurementMark FoxStart: 52-42-5797Rsdgo panel Ericka FoxStart: 52-03-2981Ohfuzbu stimulating hormone measurementMark FoxStart: 80-90-7894Vqoukky B12 measurementWendi SchwormStart: 77-09-0601Jdmmowve foot examinationMark FoxStart: 29-16-0044Uwktppbixa A1c measurementMark FoxStart: 84-43-5652Nqfi recent diastolic blood pressure 80-89 mm hgWendi SchwormStart: 54-64-3460Tpcu recent systolic blood pres>/equal 140 mm hgWendi SchwormStart: 66-90-8825Nrjp recent systolic blood pressure <130 mm hgWendi SchwormStart: 87-04-7356Frwb FoxStart: 40-22-6459Onfqerdbjibqj metabolic panelMark FoxStart: 70-03-9729Bhwowgjmjco mean corpuscular volume determinationMark FoxStart: 11-03-7917Cueif panelMark FoxStart: 09-97-6651Bbmy FoxStart: 07-28-2023 Comprehensive metabolic panelWendi SchwormStart: 50-30-5556Bggoazgljv A1c measurementWendi SchwormStart: 41-09-2695Spcek panelWendi SchwormStart: 19-63-4733Rlcom SchwormStart: 01-25-2023 End: 33-06-0102Qgylpdjktbmmx metabolic panelMark FoxStart: 23-79-9409Tglkmjhf foot examinationMark FoxStart: 50-31-6052Nlivpngrgrp mean corpuscular volume determinationMark FoxStart: 98-66-6154Gffa recent diastolic blood pressure < 80 mm hgMark FoxStart: 21-36-9330Etyn recent systolic blood pressure <130 mm hgMark FoxStart: 01-25-2023 End: 48-18-7961Xkvw FoxStart: 33-25-9439Iulezpxvhn A1c measurementMark FoxStart: 03-65-9011Ioiep panelMark FoxStart: 93-37-7065Lcu UA (for Ketones)Edilberto ZamoraStart: 85-97-2574Bwktb inorganic phosphate measurementLer Zamora Start: 24-74-3944Bynu FoxStart: 22-37-8621Jrnkegiz foot examinationLerProMedica Coldwater Regional HospitalStart: 09-86-0698Sbubqo cur meds by liv Reveles LexingtonStart: 00-11-0726Vtbntgxlrpgnf of current medicationsMark FoxStart: 07-21-2022 Comprehensive metabolic panelLerProMedica Coldwater Regional HospitalStart: 03-99-7367Ssphslganp A1c measurementLerProMedica Coldwater Regional HospitalStart: 68-60-4861BACLUUIEQOVQ/Urine Creat RatioLerProMedica Coldwater Regional HospitalStart: 98-87-0952Szudzwknfme hormone measurementLerProMedica Coldwater Regional HospitalStart: 81-86-4045Gjqcyod D, 25-hydroxy measurementLerProMedica Coldwater Regional HospitalStart: 21-27-1789Rrkm FoxStart: 58-33-1499Wasaj panelLerProMedica Coldwater Regional HospitalStart: 24-37-8414XQ of right foot Start: 16-86-6593X-ray of left ankleMark FoxStart: 16-94-1065BEM of right foot with contrastStart: 53-27-5801MPL of right ankle with contrastStart: 04-05-2022 C-reactive protein measurementMark FoxStart: 88-05-1013Vnybuwsc blood countMark FoxStart: 19-54-5286Xofgnwuetfbaa metabolic panelMark FoxStart: 04-05-2022 Erythrocyte sedimentation rate, non-automatedMark FoxStart: 01-71-1372EIE of lower extremityLerProMedica Coldwater Regional HospitalStart: 58-90-5944Qfcpz lactate measurementMark Muniz Start: 77-17-5087Qhazps scan of lower limb veinsStart: 05-17-1767A-ray of right footStart: 24-71-3560Fexbtj cur meds by liv Armstrong MarchandStart: 83-91-9120Eoutcehgpomra of current medicationsMark FoxStart: 04-11-8427R-ray of left ankleJeremy SeptemberandStart: 97-67-0583Sycbseltsu radiologic examination Bo Gunn Other Start: 62-90-8158Oodxpn cur meds by liv Armstrong MarchandStart: 02-75-4799Gjlqzlwykedvy of current medicationsMark FoxStart: 85-21-9833Xeiznpklv of ankleMark FoxStart: 19-06-1453Ojgusqp boot, non- pneumatic, with or without joints, with or without interface material, prefabricated, sfc-ebi-zrbonAcps FoxStart: 71-15-1827I-ray of left ankleJeremy SeptemberandStart: 41-98-4472R-ray of left footJeremy tart: 02-17-2022 End: 55-31-6557Nzclxvtorvzrp metabolic panelJeremy tart: 02-17-2022 Destruction of lesion of skinMark FoxStart: 31-47-9071Cdcrkz cur meds by liv Santiago FoxStart: 79-68-4588Vaxgqxaoszcba of current medicationsMark FoxStart: 02-14-4207Sqyqzjkzeg A1c measurementJehighland springs surgical center tart: 34-58-6107Dzogb panel Franky SeptemberFranciscan Healthrt: 33-78-7860YWMPWRAMBZFY/Urine Creat RatioJeremy [facility] Start: 96-49-7752Urin FoxStart: 34-90-5331Ubikkc cur meds by liv Muniz Start: 22-23-9456Nqsusqbesmmqy of current medicationsMark FoxStart: 01-18-2022 Diabetic foot examinationLer Marekkettering health prebleStart: 64-92-1434Yty UA (for Ketones) Edilberto Jarakettering health prebleStart: 34-65-5708Uomf FoxStart: 68-64-0156Qjaika cur meds by liv Jarakettering health prebleStart: 47-46-0676Hiniblayozikt of current medicationsMark FoxStart: 57-13-1399Cnjkdujzu of callusMark FoxStart: 43-50-7400Rcbrth cur meds by liv Armstrong [facility] Hospitaltart: 55-91-8931Myciiianuhjow of current medications Ericka FoxStart: 92-16-5047Uswzngzbixnlp metabolic panelEdilberto JaraRehabilitation Hospital of Southern New Mexicoart: 56-39-5274Wzylrycjjlw mean corpuscular volume determinationLergavi Jarakettering health prebleStart: 31-25-5258Lgyez glutamyl transferase measurementLergavi Jarakettering health prebleStart: 04-68-9260Jrtohjgkyd A1c measurementLeroy Lexingtonart: 01-01-2022 MICROALBUMIN/Urine Creat RatioLeroy LexingtonStart: 19-09-0992Hrhe FoxStart: 47-25-3034Lyzwjh cur meds by liv Armstrong SeptemberFranciscan Healthtart: 10-20-2021 Documentation of current medicationsMark DamascusStart: 89-29-0702Ijiqtrekjuq of nail Ericka FoxStart: 18-98-8514Upfjvhqp of abscessMark FoxStart: 79-24-4504Tevyczayn on skinMark FoxStart: 63-82-0187Kir-scan lxtr art/artl bpgs uni/lmtd studyJeremy tart: 80-33-2786Vja-invasive physiologic study extremity 3 levlsJeremy tart: 81-43-1350Mbtyaf cur meds by liv Armstrong SeptemberFranciscan Healthtart: 30-38-1369Atlezjlzwtyfy of current medicationsMark FoxStart: 18-07-1007Mopqcoh ultrasonography of artery of lower limbJeremy tart: 86-04-0863Kklwh X- ray of toeJeremy SeptemberFranciscan Healthtart: 18-10-2506Wbhik microscopy, culture and sensitivitiesJeremy rt: 71-35-1466Leztdcvp foot examinationLeroy Lexingtonart: 80-05-1691Netrsd cur meds by liv Reveles LexingtonStart: 89-31-1668Hbdzdvvhiujzd of current medicationsMark DamascusStart: 15-33-4223PH-Dip Edilberto LexingtonStart: 33-18-6314Msva FoxStart: 24-93-3311Sfsxgktwfoxki metabolic panelLeroy [place]ingtonStart: 44-59-5701Jjqapnsicwn mean corpuscular volume determinationLeroy LexingtonStart: 07-50-5052Treyelnnps A1c measurementLeroy Hawthorn Centerart: 99-91-9014Oxckv panelLeroy Hawthorn Centerart: 08-27-0790Wxmwf metabolic panel calcium totalMark FoxStart: 18-28-2617Vyeay glutamyl transferase measurementLeroy LexingtonStart: 98-76-1399Ttanwhaxao A1c measurementMark Muniz Start: 34-05-0739Eojjucgwirkkv metabolic panelMark FoxStart: 06-24-2021 Erythrocyte mean corpuscular volume determinationMark FoxStart: 06-24-2021 Hemoglobin A1c measurementMark FoxStart: 41-59-5022Wlmbq panelMark FoxStart: 54-41-0903Dso UA (for Ketones)Edilberto MarekederStart: 24-92-8984Sagl FoxStart: 40-64-3465Hyoryzyr foot examinationLeroy Marekkettering health prebleStart: 61-19-8089Mmxlpw cur meds by liv JaraederStart: 14-46-1131Bvrtnjjgbxjvf of current medicationsMark FoxStart: 88-68-1361Rlkinyhnvisue metabolic panelLergavi Zamora Start: 15-30-3086Zvysuckwkzv mean corpuscular volume determinationLeroy MarekStart: 04-30-3244Xqxfkoqung A1c measurementLeroy MarekbrianStart: 07-09-7499Lzwhusalani hormone measurementLeroy Marekkettering health prebleStart: 42-42-7285Gejnn inorganic phosphate measurementLeroy Marekkettering health prebleStart: 12-23-2020 End: 05-06-9896Tfbwgzsertwtl metabolic panelMark FoxStart: 23-21-3553Aibcrf cur meds by liv wellsHeron FoxStart: 07-42-9620Bjuzawcpurdfp of current medications Ericka FoxStart: 76-09-0548Gybpdxxsuyu mean corpuscular volume determinationMark FoxStart: 28-49-9465Hdzopiomgo A1c measurementMark FoxStart: 41-71-9683Ihgax panelMark FoxStart: 50-66-9848JVECPAPAZHDA/Urine Creat RatioGuccigavi Zamora Start: 23-88-4795Lxhnclmnpz, automatedMark FoxStart: 72-13-0390Akle FoxStart: 24-83-6005Ufy UA (for Ketones)Edilberto MarekederStart: 81-60-9179Jezf FoxStart: 62-82-0914Lkvtkorg foot examinationLeroy MarekbrianStart: 44-84-4036Tmc meds verified w/pt or reLeroy SchroederStart: 26-24-1520Vfyixpdelpure of current medicationsMark FoxStart: 12-71-0979Xnksagjkoasrf metabolic panelLergavi Zamora Start: 74-14-3931Egcibmfhqn A1c measurementMark FoxStart: 96-58-3936Rimahrhlvt glycosylated y8zVrubqgavi ZamoraStart: 64-70-5999Lzq UA (for Ketones)Edilbertogavi ZamoraStart: 27-08-3430Ifqb FoxStart: 52-18-6889Sdoqbpmw foot examination Edilbertogavi ZamoraStart: 81-54-0167Kqg meds verified w/pt or reLeroy Sera Start: 53-80-1850Sxjvsyeshhogt of current medicationsMark FoxStart: 03-28-2020 Glucose quantitative blood xcpt reagent stripLeroy MarekStart: 03-28-2020 Hemoglobin A1c measurementMark FoxStart: 42-53-2848Rmppadukcs glycosylated a1c Edilberto ZamoraStart: 20-32-2638Mbrrpbn function panelLergavi ZamoraStart: 25-15-4832Fpzxqbc function panelEricka FoxStart: 08-26-6013Jye any jt lower extrem w/o contrast matrlLUIS JAKATHERINEGUIStart: 99-52-5365Tkb any jt lower extrem w/o contrast matrlKara J Plato Work Phone: start: 59-78-3895Gll meds verified w/pt or reMark Muniz Start: 89-79-0237Oqmjqjldqvrqe of current medicationsMark FoxStart: 02-12-2020 Mri any jt upper extremity w/o contrast matrlLUIS JAKATHERINEGUIStart: 18-89-0212Juo any jt upper extremity w/o contrast matrlKara J Plato Work Phone: start: 51-01-5082Yjg meds verified w/pt or reLeroy SeraStart: 41-35-2764Gifdttbslnzlu of current medicationsMark FoxStart: 98-70-9516CBBFNYK, WHOLE BLOODSteven C Escalona Work Phone: Start: 56-03-6312Ldgvv metabolic panel calcium total Edilberto ZamoraStart: 48-93-3365Atu meds verified w/pt or reLeroy Sera Start: 40-39-3767Qldbdtsyzvzwv of current medicationsMark FoxStart: 12-27-2019 Hemoglobin A1c measurementMark FoxStart: 12-21-0907Iskkygjurj glycosylated a1c Edilberto ZamoraStart: 44-16-3428Kguwc of urea nitrogen quantitativeLUIS CALVILLO Start: 63-03-1446Chacs count hematocritLUIS JAUREGUIStart: 00-76-0097Gutzcmcfjx bloodLUIS JAUREGUIStart: 47-09-3368Uxbyntggtrr panelLUIS JAUREGUIStart: 90-59-4678Znefrqa quantitative blood xcpt reagent stripLUIS JAKATHERINEGUIStart: 82-42-7048Voejx of urea nitrogen quantitativeSteven C Roff Work Phone: Start: 92-53-4201Zwwoi count hematocritSteven C Roff Work Phone: Start: 65-35-8349Xkvkatqvvu bloodSteven C Roff Work Phone: Start: 74-86-9158Zelkkwvwkym panelSteven C Roff Work Phone: Start: 93-07-1456Bxnxvhl quantitative blood xcpt reagent stripSteven C Roff Work Phone: Start: 96-34-2170Ufz routine ecg w/least 12 lds w/i&r TARIK JAUREGUIStart: 99-65-7683EAL REPORTLUIS JAUREGUIStart: 52-55-0988EMADJ-19 TARIK JAUREGUIStart: 85-54-1833Vls routine ecg w/least 12 lds w/i&rSteven C Roff Work Phone: Start: 64-87-5154HEQ REPORTHpf ScanningStart: 84-24-0894SKHCK-Luis E Calvillo Work Phone: Start: 87-72-3894Ktugyzfqulcba metabolic panelMark Muniz Start: 55-41-7909Bnmhoqnyfa A1c measurementMark FoxStart: 04-06-1135Hcoznruajb glycosylated g3eJjzp FoxStart: 44-67-4082Xpgkl panelMark FoxStart: 11-27-2019 Lipid panelMark FoxStart: 46-49-3259FBLFVLMWSJOQ/Urine Creat RatioMark FoxStart: 79-03-1436Fjnb FoxStart: 16-74-0844Gcq meds verified w/pt or reMark FoxStart: 46-68-5729Ywohkxzxerlgn of current medicationsMark FoxStart: 74-84-2955Ipaen metabolic panel calcium totalLergavi Jarakettering health prebleStart: 13-39-4237Zxkzxwbr foot examinationLergavi ZamoraStart: 97-28-2205Ypr meds verified w/pt or reLeroy SeraStart: 37-20-9314Qyqxjfeozwmlc of current medicationsMark FoxStart: 84-27-2118Ukskq of glutamyltrase gammaLergavi Jarakettering health prebleStart: 23-27-9982Cxyvm metabolic panel calcium totalLergavi Jarakettering health prebleStart: 10-76-5878Qjnzy glutamyl transferase measurementMark FoxStart: 20-32-8220Zqzepohmnu A1c measurementMark FoxStart: 58-22-0892Jynxsjfnyx glycosylated t7sAdxuu Schrokettering health prebleStart: 05-28-2019 Doc meds verified w/pt or reMark FoxStart: 82-33-6923Wmuurdnydxefj of current medicationsMark FoxStart: 36-29-5093Ffmkb of prostate specific antigen totalMark FoxStart: 40-78-1214Wqlyw count complete automatedMark FoxStart: 05-22-2019 Comprehensive metabolic panelMark FoxStart: 15-85-7883Dtixcnzcsrs mean corpuscular volume determinationMark FoxStart: 19-18-8022Dhgbq panelMark Muniz Start: 68-20-1194Tnsec panelMark FoxStart: 83-80-8995Rjuxfmgi specific antigen measurementMark FoxStart: 81-50-5374Wpgcinbsyb, automatedMark FoxStart: 81-88-9473Qetze dip stick/tablet rgnt auto w/o microscopyMark FoxStart: 72-85-4076Kxduptfz foot examinationLergavi ZamoraStart: 35-98-3402Nxw meds verified w/pt or reLeroy SeraStart: 03-46-6917Znczhbqveqjqn of current medicationsMark FoxStart: 85-33-6403Iwhph of glutamyltrase gammaChase Trudy Start: 21-06-9529Xvnvgzxvpympm metabolic panelChase TrudyStart: 04-13-2019 Gamma glutamyl transferase measurementMark FoxStart: 57-53-1808Pbjyuqoqfh A1c measurementMark FoxStart: 90-91-3390Ujxdxirmqt glycosylated v4gRtcqs Trudy Start: 91-79-0070XDPAIJRSUQLM/Urine Creat RatioChase TrudyStart: 04-13-2019 Ericka MunizStart: 79-21-5226Gbgcvzkpwrklo follow-up visitMark FoxStart: 03-29-2019 Doc meds verified w/pt or reChase Scaravenir behavioral [facility] center at surpriseughStart: 42-99-4427Psccpzlooqekx of current medicationsMark FoxStart: 60-50-6885Imq b9 lesion mrgn xcp sk tg t/a/l 2.1-3.0 cmCWills Eye HospitalStart: 51-35-0184Yckmrnrm of lesion of skinMark Muniz Start: 33-07-8636Cukwc closure of wounds of extremitiesMark FoxStart: 03-29-2019 Repair intermediate s/a/t/e 2.6-7.5 cmCWills Eye Hospitalart: 81-18-8871Arhwd of prostate specific antigen totalLergavi Jarakettering health prebleart: 70-51-0798Echme count complete automatedLer Marekkettering health prebleStart: 21-93-3309Sczwskpnfuycq metabolic panel Edilberto Jarakettering health prebleStart: 24-30-8351Kiqvnlbiflm mean corpuscular volume determinationMark FoxStart: 61-26-8924Whphocibzb A1c measurementMark FoxStart: 82-39-8302Ooqhdlagmo glycosylated g6kAvhvn Marekkettering health prebleStart: 75-90-9959Vzuuv panel Edilberto MarekRehabilitation Hospital of Southern New Mexicoart: 11-66-2487Kzfep panelMark FoxStart: 02-27-2019 MICROALBUMIN/Urine Creat RatioLer Marekkettering health prebleStart: 34-18-9348Hwlanbcr specific antigen measurementMark FoxStart: 45-31-1257Uurs FoxStart: 81-10-4560Uso meds verified w/pt or reChase Kaliaurora [facility]– milwaukeeStart: 86-38-1441Vtqwpnpuzdayu of current medicationsMark FoxStart: 88-09-0599Xvzy Tag removal (SKNTG)Edilberto Zamora Start: 70-40-1357Hwiz FoxStart: 93-53-7444Iyj meds verified w/pt or reMark Muniz Start: 59-03-8480Xqkpbnyokdhah of current medicationsMark FoxStart: 01-02-2019 Medical nutrition re-assmt&ivntj indiv ea 15 mLeroy Marekkettering health prebleStart: 12-12-2018 Diabetic foot examinationLer MarekRehabilitation Hospital of Southern New Mexicoart: 30-90-0774Vegpyaz measurement, quantitativeMark FoxStart: 32-22-9468Mhztphz quantitative blood xcpt reagent stripLeroy Marekkettering health prebleStart: 25-73-3025Mpxrrlyatb A1c measurementMark FoxStart: 67-26-9231Bnjhnyzdel glycosylated j0jPfmmm Marekkettering health prebleStart: 96-63-3852Jrepjtip foot examinationLeroy Marekkettering health prebleStart: 24-67-6764Nag meds verified w/pt or re Edilberto Marekkettering health prebleStart: 88-74-5243Eeuvpokyetqtp of current medicationsMark Muniz Start: 17-10-1018Znxvphv nutrition re-assmt&ivntj indiv ea 15 mMark FoxStart: 39-51-4451Mvtgs count complete automatedLeroy Schrokettering health prebleStart: 09-17-2018 Erythrocyte mean corpuscular volume determinationMark FoxStart: 09-17-2018 Glucose measurement, quantitativeMark FoxStart: 20-01-0098Qxwacmi quantitative blood xcpt reagent stripMark FoxStart: 78-83-7557Kxycglezup A1c measurementMark FoxStart: 36-01-5949Miqmoqgksj glycosylated b2iFujj FoxStart: 60-52-9286Quomtpt function panelMark FoxStart: 55-09-5178Adyktjp function panelMark FoxStart: 33-14-2403Ekkrvhg B12 and FolateLergavi Jarakettering health prebleStart: 17-98-2149Bbws FoxStart: 59-40-4594Jriaq of prostate specific antigen totalLergavi Jarakettering health prebleStart: 14-86-4940Zcxzpkrzupjkq metabolic panelLeroy Marekkettering health prebleStart: 09-01-2018 Hemoglobin A1c measurementMark FoxStart: 37-41-2982Evwkyknews glycosylated a1c Edilberto Schrokettering health prebleStart: 14-88-0627Meoqn panelLeroy SchroederStart: 46-65-6948Xhayi panelMark FoxStart: 99-62-5836HBSZJRYRVEAZ/Urine Creat RatioLergavi Zamora Start: 16-84-4777Mtxmyger specific antigen measurementMark FoxStart: 09-01-2018 Ericka FoxStart: 37-14-1299Ria meds verified w/pt or reLeroy Marekkettering health prebleStart: 72-35-6923Vwgrpstpkclxh of current medicationsMark FoxStart: 13-06-1101Gezdolh nutrition re-assmt&ivntj indiv ea 15 mLeroy SeraStart: 83-15-3623Gvpccpui foot examinationLeroy [facility] prebleStart: 59-35-9780Xiy meds verified w/pt or re Edilberto SeraStart: 89-47-4218Ehwzxqzscoxbo of current medicationsMark Flavio Start: 55-47-6711Heitons measurement, quantitativeMark FlavioStart: 06-19-2018 Glucose quantitative blood xcpt reagent stripGuccigavi ZamoraStart: 06-19-2018 Hemoglobin A1c measurementMark Start: 12-79-9083Vtareodvxt glycosylated a1c Edilberto SeraStart: 90-00-8951Bjtguep nutrition re-assmt&ivntj indiv ea 15 m Ericka MunizStart: 53-90-3943Yztmdatt foot examinationLergavi MarekbrianStart: 30-02-8222Cfhcbai measurement, quantitativeMark FlavioStart: 67-90-9738Igozcup quantitative blood xcpt reagent stripChase Quickgladysluis miguelStart: 37-11-4028Xkmknjengw A1c measurementMark FlavioStart: 56-06-2138Fsbxiezjzo glycosylated p7gXxqwo AbdelrahmandarleneStart: 16-94-7818ELFMUOPEWGBO/Urine Creat RatioChase YatesStart: 77-01-6634Sgax FlavioStart: 84-02-5076Wfg meds verified w/pt or reLeroy Sera Start: 68-31-1434Mweavpkgwpgzo of current medicationsMark FoxStart: 02-23-2018 Comprehensive metabolic panelLergavi ZamoraStart: 94-18-3286Booeqbadaa A1c measurementMark FlavioStart: 18-91-3318Tsojaonlhv glycosylated m6qBghuqEdilberto Jaraeder Start: 99-19-6683Svlod panelLergavi ZamoraStart: 63-04-0605Ncrxp panelEricka Muniz Start: 59-34-7909HUEDSDHEGIXO/Urine Creat RatioEdilberto ZamoraStart: 02-23-2018 Ericka MunizStart: 09-76-9119Ofsasay nutrition re-assmt&ivntj indiv ea 15 mChase TrudyStart: 41-49-6526Dzhtpawr foot examinationLergavi ZamoraStart: 70-49-5181Owj meds verified w/pt or reLeroy SeraStart: 12-13-2017 Documentation of current medicationsMark FoxStart: 47-63-5436Jjvybuz function panelMark FoxStart: 06-89-4575Huwmbae function panelMark FoxStart: 12-09-2017 Diab manage trn per indivMark FoxStart: 04-02-8559Rsabipmn self-monitoring health educationMark FoxStart: 95-16-7607Uaqveky measurement, quantitativeMark FoxStart: 40-39-1252Jmxudoc quantitative blood xcpt reagent stripEdilberto Zamora Start: 66-59-0822Rezmpsyqst A1c measurementMark FoxStart: 93-89-0284Ljtyukpuxc glycosylated j5mSmwklEdilberto Jaraket[facility] prebleStart: 62-25-0764Qxhm manage trn per indivEdilberto Jarak[facility] prebleStart: 11-43-1490Tuutdblc self-monitoring health educationHeron Muniz Start: 01-67-2868Byfqteo Medications Verified MIPSLergavi Jaraket[facility] prebleStart: 77-05-2657Vnrd FoxStart: 27-78-4961Pttbacn aminotransferase measurementMark Muniz Start: 76-64-8677Bcrxqzusa aminotransferase measurementMark DamascusStart: 08-25-2017 Basic metabolic panel calcium totalLergavi Jaraket[facility] health prebleStart: 39-22-3572Hrfzjkhpli A1c measurementMark DamascusStart: 95-09-2345Skluzocqde glycosylated a3bMojjs Sch[facility]ket[facility] prebleStart: 23-42-6168Ftxnb panelLer Marekkettering health prebleStart: 54-19-7252Fxebh panel Ericka FoxStart: 38-44-3069SMUIIBDPUEET/Urine Creat RatioLergavi Jarak[facility] prebleStart: 87-77-3519Lrwbsspkqhq alanine amino alt sgptLergavi LexingtonStart: 08-25-2017 Transferase aspartate amino ast sgotCopper Springs Hospitalgavi Jaraket[facility] health prebleStart: 40-85-2749Xtjp Muniz Start: 63-60-8031Wuss manage trn per indivEdilberto Jaraket[facility] prebleStart: 08-09-2017 Diabetes self-monitoring health educationMark FoxStart: 56-66-4729Pplzjsfs foot examinationLeroy Marekkettering health prebleStart: 11-30-3352Dajovpl measurement, quantitativeMark FoxStart: 34-24-8037Vavhney quantitative blood xcpt reagent stripLergavi Jaraket[facility] prebleStart: 21-24-4082Jqjkdmokhj A1c measurementMark FoxStart: 08-05-2017 Hemoglobin glycosylated w8mGwxdb [facility] prebleStart: 73-13-9973GY-DipLeroy Zamora Start: 57-42-2906Vfzt FlavioStart: 34-56-1743Cbo meds verified w/pt or reLeroy Marekkettering health prebleStart: 33-20-6639Pewpkciujsgtp of current medicationsMark FoxStart: 60-82-2916Qpijzdv Medications Verified MIPSLeroy Schroket[facility] health prebleStart: 04-05-2017 Diabetic foot examinationLer Marekkettering health prebleStalice[place]: 68-38-5203Xaqy FoxStart: 33-82-3639Wsspbef measurement, quantitativeMark DamascusStart: 59-51-4455Gaqqmge quantitative blood xcpt reagent stripEdilberto Jaraket[facility] prebleStart: 62-39-5546Bntcqilnwy A1c measurementMark FoxStart: 90-89-6113Gwwhyhrmmk glycosylated l0eChbum Marekkettering health prebleStart: 35-34-6936DEFKMUOINSIN/Urine Creat RatioLergavi [facility]ak[facility] prebleStart: 42-34-8191Czjf FoxStart: 09-21-8990Aay UA (for Ketones)Edilbertogavi [facility]ak[facility] prebleStart: 14-86-8699Wpai DamascusStart: 05-52-6062Bhi meds verified w/pt or reLeroy Sera Start: 98-02-6555Zqrsomkuvduwr of current medicationsMark DamascusStart: 32-64-1547Ps strs tst xers&/or rx cont ecg w/si&rLeroy Marekkettering health prebleStart: 02-17-2017 Electrocardiogram with exercise testMark FoxStart: 16-87-4073Awrjliqezo spect multiple studiesLer Marekkettering health prebleStart: 38-33-7989Timvccvbopn injectionLergavi Jarak[facility] prebleStart: 91-81-9198Zn25a sestamibiLeroy Marekkettering health prebleStart: 64-17-1172Hjm meds verified w/pt or reLeroy Marekket[facility] health prebleStart: 86-14-0004Hbjtiiiyjdjmc of current medicationsMark FoxStart: 94-55-9092Wno routine ecg w/least 12 lds w/i&rLeroy Marekkettering health prebleStart: 18-73-8803Gtgpbox measurement, quantitativeMark FoxStart: 92-02-9900Ncwllyk quantitative blood xcpt reagent stripLergavi Jarak[facility] prebleStart: 94-82-8098Clpdxehres A1c measurementMark FoxStart: 18-94-8211Qlisolzxxt glycosylated w0iEowyg Marekkettering health prebleStart: 17-88-7054Dhoxfzbo foot examinationLer Marekkettering health prebleStart: 70-54-8127Cub UA (for Ketones)Edilberto Marekket[facility] health prebleStart: 11-23-2016 Ericka FoxStart: 76-47-2373Xfqefnh aminotransferase measurementMark FoxStart: 44-82-3138Risijfflm aminotransferase measurementMark FoxStart: 09-21-2016 End: 82-36-2384Xmakl metabolic panel calcium totalLeroy MarekederStart: 94-58-2051Inexlbodbr A1c measurementMark FoxStart: 04-32-5993Vnjmaiktop glycosylated i2jOgizm SchroederStart: 08-67-1347Lvzat panelLeroy MarekederStart: 90-32-0276Nxfcw panelMark FoxStart: 10-30-2430Jehihngyyly alanine amino alt sgptLergavi SchroederStart: 94-98-2488Rydsiyjkybm aspartate amino ast sgotLergavi SchroederStart: 46-57-3062Escuy metabolic panel calcium ionizedLeroy Sera Start: 01-34-7275Quccw chemistryMark FoxStart: 34-87-3777BPKITTLZFXEU/Urine Creat RatioLergavi Jarak[facility] prebleStart: 73-04-1023Qhfk FoxStart: 29-79-8350Fncib brachial pressure indexMark FoxStart: 59-07-7626Ned-invas physiologic std extremity art 2 levelLeroy MarekederStart: 52-81-2464Nhtvp brachial pressure indexMark FoxStart: 25-93-2222Qaoqufze foot examinationLeroy SchroederStart: 01-56-9441Wnz-invas physiologic std extremity art 2 levelLergavi SchroederStart: 89-01-5589Qhsjn of thyroid stimulating hormone tshLeroy MarekederStart: 48-22-1424Uhvrb of thyroxine totalLeroy SchroederStart: 19-53-1892Ewwry metabolic panel calcium totalLeroy SchroederStart: 58-33-8598Mtgpswqflm A1c measurementMark FoxStart: 02-85-0147Mpwhusbseh glycosylated o6iPzescgavi Zamora Start: 76-85-1088CRITACBBITUS/Urine Creat RatioLergavi MarekederStart: 07-30-2016 Thyroid stimulating hormone measurementMark FoxStart: 15-56-7900Mqeauqiii measurementMark FoxStart: 84-97-3213Czjw FoxStart: 59-31-9616Perza metabolic panel calcium ionizedLeroy MarekederStart: 55-15-7363Rqotb metabolic panel calcium totalLeroy SchroederStart: 62-67-1324Mwbhn chemistryMark FoxStart: 50-96-6095Ivy UA (for Ketones)Edilberto MarekederStart: 83-01-9841Wcdz FoxStart: 61-35-8234Kytawmnv foot examinationLeroy SchroederStart: 26-80-8234Pcocxgb aminotransferase measurementMark DamascusStart: 92-71-8392Vpbjuwrtr aminotransferase measurementMark FoxStart: 31-18-6926Betdp metabolic panel calcium totalLeroy LexingtonStart: 87-68-8602Xzcmqdvneh A1c measurementAscension Providence HospitalStart: 03-20-2016 Hemoglobin glycosylated j7hFwdgg LexingtonStart: 30-55-2739Ueske panelLerProMedica Coldwater Regional HospitalStart: 00-76-5522Rgida panelMark DamascusStart: 53-33-6644Rmzjfhpofnz alanine amino alt sgptLeroy LexingtonStart: 12-02-5304Nkowalikfmd aspartate amino ast sgotLergavi LexingtonStart: 47-47-5754Xaxst metabolic panel calcium totalLerProMedica Coldwater Regional HospitalStart: 77-29-0069Veouvuw measurement, quantitativeAscension Providence Hospital Start: 54-59-3554Zdyvzasgrm A1c measurementAscension Providence HospitalStart: 02-67-3989Wmscruzstz glycosylated x1gPjtsd [place]ingtonStart: 35-64-7384Hkudy of thyroid stimulating hormone tshLerProMedica Coldwater Regional HospitalStart: 46-82-1024Vyrzw of thyroxine totalLerProMedica Coldwater Regional HospitalStart: 63-68-1401Yxgnghx measurement, quantitativeMark FoxStart: 87-37-5922Bcoprda quantitative blood xcpt reagent stripLeroy LexingtonStart: 98-24-7302Qirduveoyu A1c measurementAscension Providence HospitalStart: 45-86-8219Czpuuxdypl glycosylated f0oZhvgdProMedica Coldwater Regional HospitalStart: 28-80-3983FKWMYKCQCSFD/Urine Creat Ratio Edilberto Hawthorn Centerart: 29-27-4429Jdzpwjn stimulating hormone measurementAscension Providence Hospital Start: 93-85-4354Vjbdtccrc measurementAscension Providence HospitalStart: 84-03-2361Fzxg DamascusStart: 11-18-2015 End: 32-47-8418Tjxciqu analysis electroencephalogramLerProMedica Coldwater Regional HospitalStart: 24-00-1214Jwtgluqpjgmpwnefmzavuxv procedureMark DamascusStart: 95-51-8958Vcdjmxfd measurementAscension Providence HospitalStart: 25-93-7345Axckjapk totalLerSharon Regional Medical Centerart: 41-98-1283Wsinpcki foot examinationLerProMedica Coldwater Regional HospitalStart: 88-91-4988Dayzl metabolic panel calcium totalLerProMedica Coldwater Regional HospitalStart: 20-48-1599Ximjxqzyod A1c measurementAscension Providence HospitalStart: 33-27-3970Lmlkhclfer glycosylated d0eCigdeProMedica Coldwater Regional Hospital Start: 22-94-9024GARYPCZFPRTC/Urine Creat RatioLerProMedica Coldwater Regional HospitalStart: 11-03-2015 Ericka FoxStart: 80-76-8371Zuftk of c-peptideLeroy LexingtonStart: 54-97-4185Awmnu metabolic panel calcium totalLerProMedica Coldwater Regional HospitalStart: 95-25-1825Zwselhfw measurementMark DamascusStart: 73-07-3024Msxghbst totalLerProMedica Coldwater Regional HospitalStart: 83-83-0011Nrlf manage trn per indivLeroy LexingtonStart: 88-18-6675Ypxufzex self-monitoring health educationMark FoxStart: 10-56-7445Qiigowzv foot examinationLerProMedica Coldwater Regional HospitalStart: 44-79-0207Rdtlonm measurement, quantitativeMark DamascusStart: 58-34-1652Kfrrngj quantitative blood xcpt reagent stripLerProMedica Coldwater Regional HospitalStart: 58-41-6559Yblgmzk C-peptide measurementMark FoxStart: 09-29-2015 Medical nutrition assmt&ivntj indiv each 15 miLeroy Sch[facility] prebleStart: 09-29-2015 Therapeutic prophylactic/dx injection subq/imLeroy LexingtonStart: 09-24-2015 Unlisted pulmonary service/procedureLerProMedica Coldwater Regional HospitalStart: 67-71-8039Wcxszkux spec ige crude allergen extract eachLerProMedica Coldwater Regional HospitalStart: 53-72-1748Tirbs of gammaglobulin igeLerProMedica Coldwater Regional HospitalStart: 11-54-6502Zkoun count complete auto&auto difrntl wbcLerProMedica Coldwater Regional HospitalStart: 50-77-6250Cjwijqie blood countMark FoxStart: 78-10-9222Gvdlihkylfl sedimentation rate, non-automatedMark FoxStart: 08-26-2015 Immunoglobulin E measurementMark DamascusStart: 38-85-8005Lxqaeaucsfoet rate rbc non-automatedLerProMedica Coldwater Regional HospitalStart: 38-47-2701Wozawebbf ConsultLerProMedica Coldwater Regional Hospital Start: 13-59-8806Mmwu FoxStart: 06-92-9947Jh strs tst xers&/or rx cont ecg w/si&rLeroy LexingtonStart: 50-23-3022Xjkupcfngkvkgpqfj with exercise testMark FoxStart: 92-92-6066Ignubmutgy spect multiple studiesLeroy [facility] prebleStart: 98-98-5424Pnqefywcmli injectionLerProMedica Coldwater Regional HospitalStart: 19-87-4633Gv72q noah Casanova SchroederStart: 54-35-5177Lxtvuvl aminotransferase measurementMark Flavio Start: 69-80-8394Gvqmlpent aminotransferase measurementMark FoxStart: 08-04-2015 Basic metabolic panel calcium totalLergavi SchroederStart: 15-81-0260Mlhqixgbkk A1c measurementMark FoxStart: 16-94-2427Asbmtasjmh glycosylated t9rPkxpt SchroederStart: 49-55-0660Kjyky panelLergavi SchroederStart: 92-73-6658Fmces panel Ericka FoxStart: 11-70-9652BTYRCGJTXSKI/Urine Creat RatioLergavi SchroederStart: 84-50-3267Lyklvqkadni alanine amino alt sgptEdilberto SchroederStart: 08-04-2015 Transferase aspartate amino ast sgotLergavi [facility] prebleStart: 43-87-4687Jrhv Flavio Start: 02-74-8284Sbhap x-rayLergavi [facility] prebleStart: 62-44-8014Ebs routine ecg w/least 12 lds w/i&rLeroy Sera Plan of Treatment DateCare ActivityDetailAuthorStart: 08-05-2025 End: 58-63-5294Kummtfk encounter ujalhvdwc52/26/2026 2:30 PM EST Office Visit [facility] [address] [place] [address] Kimmie Yarbrough MD [address] [place] [address] NOMJose [facility]ocrinologyStart: 52-54-9381Dnvbd of prostate specific antigen totalPSA totalDallas CenterCyntellect [facility] Start: 45-83-6842Zoedy of testosterone freeTotal and free testosterone panel by equilibrium dialysisDallas CenterCyntellect [facility] Start: 80-80-7716Kofar of testosterone totalTotal and free testosterone panel by equilibrium dialysisFairfield Medical Center [employer] Start: 14-74-6080Ylaksdrlcskfb metabolic panelCMP [place] [employer] [facility] Start: 22-99-0768Vdexocqtqe glycosylated a1cHgb A1c [facility] [employer] [facility] Start: 42-50-6184Wdoka panelLipid panelKettering Health Dayton Start: 04-08-2025 End: 34-88-2166Remtwob encounter yyyqogcak03/29/2025 2:10 PM EDT Office Visit [facility] [address] [place] [id number] Kimmie Yarbrough MD [address] [place] [address] ArrivedAMARAMS Otto EndocrinologyComment on above:ArrivedStart: 04-08-2025 End: 96-05-2444Waavh metabolic 1998 panel - Serum or PlasmaBasic metabolic panel 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 Expected: 04/08/2025 (Approximate), Ex ana m: 04/08/2026NOMN HealthcareComment on above:Expected: 04/08/2025 (Approximate), Expires: 04/08/2026Start: 04-08-2025 End: 55-12-1073Hbcbbfaj [Mass/volume] in Serum or PlasmaFerritin 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 Expected: 04/08/2025 (Approximate), Expires: 2025NOMN HealthcareComment on above:Expected: 04/08/2025 (Approximate), Expires: 04/08/2026Start: 04-08-2025 End: 02-91-5928Fmgtkkdmzy [Mass/volume] in BloodHemoglobin 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 Expected: 04/08/2025 (Approximate), Expires: 04/08/2026NOMN HealthcareComment on above:Expected: 04/08/2025 (Approximate), Expires: 04/08/2026Start: 04-08-2025 End: 02-76-4044YqvyrqartUkajdpnbh 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 Expected: 04/08/2025 (Approximate), Expires: 04/08/2026NOMN HealthcareComment on above:Expected: 04/08/2025 (Approximate), Expires: 04/08/2026Start: 04-08-2025 End: 75-61-0985Yuiyzuhu specific Ag [Mass/volume] in Serum or PlasmaPSA 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 Expected: 04/08/2025 (Approximate), Expires: 04/08/2026[facility] Work Phone: Comment on above:Expected: 04/08/2025 (Approximate), Expires: 04/08/2026Start: 04-08-2025 End: 02-57-3197Jun hormone binding globulinSex hormone binding globulin 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 Expected: 04/08/2025 (Approximate), Expires: 04/08/2026[facility] HealthcareComment on above:Expected: 04/08/2025 (Approximate), Expires: 04/08/2026Start: 04-08-2025 End: 31-85-6778Chocrezexgxl [Mass/volume] in Serum or PlasmaTestosterone 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 Expected: 04/08/2025 (Approximate), Expires: 04/08/2026NOMN HealthcareComment on above:Expected: 04/08/2025 (Approximate), Expires: 04/08/2026Start: 80-32-7670Feuhrnnqa vaccinationInfluenza Vaccine (#1) [facility] HealthcareStart: 42-69-7704Pxetqkysrboaf metabolic panelCMPBOhio State University [facility] [employer] [facility] Start: 40-75-4734Vylvpmurdy glycosylated a1cHgb A1c [place] [employer] [facility] Start: 05-75-6864Jsewj panelLipid panelFairfield Medical Center [employer] [facility] Start: 43-05-2693Insaobidgklop metabolic panelComp [place] [employer] [facility] Start: 83-67-5482Yttogupeei glycosylated a1cA1c [place] [employer] [facility] Start: 75-51-5211Lqfnk panelLipid panelCol[place] [facility]Handle [facility] Start: 24-55-0601Vgvqm of thyroid stimulating hormone tshTSHBlanFirelands Regional Medical Center [facility] [employer] [facility] Start: 68-88-5980Unmtaxclqbqbk metabolic panelFairfield Medical Center [employer] [facility] Start: 17-63-6497Vafkelgzoeftde vitamin b-12B12 level [place] [employer] [facility] Start: 81-84-9970Rtglaqziqs glycosylated b7wSkykxfrlb iHandle [facility] Start: 02-97-4606Vbuks panelLipid profileColfax iHandle [facility] Start: 13-71-8631Oqehvjjsgh glycosylated a1cA1c [place] [employer] [facility] Start: 92-91-0056Wmymi of prostate specific antigen totalPSA totalDallas CenterCyntellect [facility] Start: 16-86-0503Iirim count complete automatedCBC PLATELET COUNT; AUTOMATEDDallas CenterCyntellect [facility] Start: 95-52-3920Pqkbuiwwalxdn metabolic panelCMP [place] [employer] [facility] Start: 35-27-2011Qejba panelLipid panelDallas CenterCyntellect [facility] Start: 16-61-6571Riuuhuegujegy metabolic panelCMP (comprehensive metabolic panel)[employer] [facility] Start: 95-07-2546Eusllaquco glycosylated v5yGQZOTSAYWN Y2IZtiuzniukCyntellect [facility] Start: 46-03-5485Vkqil panelLipid profileDallas CenterCyntellect [facility] Start: 51-09-5065Cyqajkzdu vaccinationInfluenza Vaccine (#1)[facility] HealthcareStart: 45-98-4859Fcjpz of prostate specific antigen total PSA, totalDallas CenterCyntellect [facility] Start: 09-01-2767Ipuzb count complete automatedCBC PLATELET COUNT; AUTOMATEDDallas CenterCyntellect [facility] Start: 38-37-7624Sunoqcsdnmkck metabolic panelCMP [place] [employer] [facility] start: 36-24-6564Rwqegth quantitative blood xcpt reagent stripGLUCOSEColfax Kenshoo [facility] Start: 39-86-7505Bswkdaxrjg glycosylated p3hATVFNDMFDZ V7HQwsfeoeah [place] [facility] Start: 84-88-0610Iptox panelLipid profileCol[place] [facility] Start: 92-85-5291Eytsqkatmru alanine amino alt sgptSGPT (ALT)[place] [employer] [facility] Start: hydroxy includes fractions if performedVITAMIN D 25-HYDROXYDallas CenterCyntellect [facility] Start: 92-49-5653Qjrhq of parathormonePTH-INTACT [place] [employer] [facility] Start: 51-96-8483Utjpgioraiwqq metabolic panelCMP (comprehensive metabolic panel)[place] [employer] [facility] start: 60-31-2614Grwbnrfzue glycosylated j6zGCFLFGOTZO J9MNdktlmxxsCyntellect [facility] Start: 54-08-6156Uhzhv panelLipid panelDallas CenterCyntellect [facility] Start: 72-09-3739B-ray of left ankleANKLE COMPLETE X- RAY 3 VIEWSDallas CenterCyntellect [facility] Start: 15-48-7439TH Foot - right WO and W contrast IV [facility] Hospitaltart: 08-53-8023JKB of right foot with contrastMR foot RT wo/w [facility] Hospitaltart: 63-93-2037VM Ankle - right WO and W contrast IVFsamaritan healthcare [facility] Medical CenterStart: 87-57-8323MQE of right ankle with contrastMR ankle RT wo/w [facility] Hospitaltart: 73-97-9283Qgbgv of lactateLactic acid serumCol[place] [facility]Handle [facility] Start: 32-88-3391Dpsdr count complete auto&auto difrntl wbcCBC w diffDallas CenterCyntellect [facility] Start: 23-89-0369S-reactive proteinCRPBlanwestern medical center iHandle [facility] Start: 69-35-1888Knhnlkfsqrcfp metabolic panelCMP [employer] [facility] Start: 36-22-8661RDP of lower extremityMRI ankle and footDallas CenterCyntellect [facility] Start: 15-91-7404Tnrzkngmbtnss rate rbc non-automated ESR non-autoDallas CenterCyntellect [facility] Start: 17-50-5908Qaujga scan of lower limb veinsUS venous duplex LE RTCommunity Memorial Hospitaltart: 55-56-7304AD Lower extremity vein - rightUk Healthcare Work Phone: Start: 89-53-8602Q-ray of left ankleANKLE COMPLETE X- RAY 3 FlamsredDallas CenterCyntellect [facility] Start: 95-78-5788S-ray of left footFOOT COMPLETE X-RAY 3 FlamsredDallas CenterCyntellect [facility] Start: 41-76-3455Bvqsl of prostate specific antigen totalPSA totalDallas CenterCyntellect [facility] Start: 85-41-6763Erpazorlyavmw metabolic panelComp [employer] [facility] Start: 67-83-6178Clggzaaiel glycosylated a1cA1c [employer] [facility] Start: 44-84-1834Zeofo panelLipid panelDallas CenterCeeLite Technologies Start: 48-61-0846Theks of glutamyltrase gammaGAMMA GT [employer] Start: 34-75-5846Mzdpu count complete automatedCBC PLATELET COUNT; AUTOMATEDDallas CenterCeeLite Technologies Start: 29-66-7329Yfuuvuvtfybfn metabolic panelCMP (comprehensive metabolic panel)[employer] Start: 97-63-0397Fdtxlvpacb glycosylated i0xMALUEWWUHQ U3QRxwbuswsuCeeLite Technologies Start: 02-54-2745Wrl bact xcpt urine blood/stool aerobic isolWound culture and sensitivityDallas CenterCeeLite Technologies Start: 80-73-4007Wjk-scan lxtr art/artl bpgs uni/lmtd studyABI w/ segmental pressures and waveformsDallas CenterCeeLite Technologies Start: 08-13-9787Hhj-invas physiologic std extremity art 2 levelABI w/ segmental pressures and waveformsDallas CenterCeeLite Technologies Start: 66-30-9443Flz-invasive physiologic study extremity 3 levlsABI w/ segmental pressures and waveformsDallas CenterCeeLite Technologies Start: 73-94-9787Droqr X-ray of toeTOES X-RAY 2-3 VIEWS [employer] [facility] Start: 93-00-0515Hknck count complete automatedCBC & PLATELET COUNT; XendoDallas CenterCeeL[employer] Technologies Start: 77-91-1792Xerikltonftjw metabolic panelCMP (comprehensive metabolic panel)[employer] [facility] Start: 32-54-1701Uegzordlvd glycosylated a1cA1c [employer] Start: 31-71-2187Ogwfb panelLIPID PROFILEFairfield Medical Center [employer] [facility] Start: 24-09-9087Afegn of glutamyltrase gammaGAMMA GT [facility] [employer] [facility] Start: 94-30-7485Eunul metabolic panel calcium total Chem 8BKe[facility] Private [facility] Start: 44-40-1441Pxpfpypllc glycosylated n5cYRDFLJZNBL N1XXuvyyaijlFairfield Medical Center [employer] [facility] Start: 13-86-0418Djoos count complete automatedCBC PLATELET COUNT; AUTOMATEDFairfield Medical Center [employer] [facility] Start: 91-18-4769Sharokkthqjql metabolic panelComp [facility] [employer] [facility] Start: 60-61-1170Idgrnkjlwy glycosylated a1cA1c [facility] [facility] Start: 47-97-2410Fgbvg panelLipid panelFairfield Medical Center [facility] Start: 97-39-1729Attsz of parathormonePTH-INTACT [facility] [employer] [facility] Start: 95-48-1000Aeaxd of phosphorus inorganic Phosphorus, serumFairfield Medical Center [facility] Start: 35-03-2490Hkqdx count complete automatedCBC PLATELET COUNT; AUTOMATEDFairfield Medical Center Thrive Solo [facility] Start: 83-17-0377Bydyteawyjjte metabolic panelCMP (comprehensive metabolic panel)[place] [employer] [facility] Start: 41-58-0861IvW7p (Bld) [Mass fraction]HEMOGLOBIN H9JMvrjukxutFairfield Medical Center [facility] Start: 98-52-8936Rixwmginoi glycosylated p3aIOSBFDSFVH U0QPcpjloztbFairfield Medical Center [facility] Start: 86-65-7332Ccxvfwkxtz measurementCreatinUtah State Hospital, KYStart: 09-97-7581Qkkhxrngt monitoringPotassium [facility], MDStart: 69-98-9915Bafgw of prostate specific antigen totalPSA totalColfax iHandle [facility] Start: 62-83-8485Dmhiurkvladju metabolic panelCMP (comprehensive metabolic panel)[employer] start: 51-17-9624YjC3j (Bld) [Mass fraction]HEMOGLOBIN T0TYpxkugudsCeeLite Technologies Start: 97-34-5187Mrwukhq quantitative blood xcpt reagent stripGLUCOSE 2 HR Post PrandialDallas CenterCeeLite Technologies start: 57-15-1365WxA5l (Bld) [Mass fraction]HEMOGLOBIN L8ZVzykwxwtzCeeLite Technologies start: 48-84-8193Asxrgfa function panelLFT (liver function test)[employer] [facility] Start: 74-96-9729Rfnpmk Wellness Visit (AWV)Annual Wellness Visit (AWV)[facility], MDStart: 03-36-8408Dybderxpg vaccination [facility]: 12-28-2019 End: 31-73-5948Nzzgmcjk EncounterMTHZ ORComment on above:SHOULDER ARTHROSCOPY ROTATOR CUFF REPAIR, POSSIBLE BICEPS TENDONDESISStart: 12-28-2019 End: 45-39-7152Astriphn EncounterMTHZ ORComment on above:SHOULDER ARTHROSCOPY ROTATOR CUFF REPAIR, POSSIBLE BICEPS TENDONDESISStart: 20-25-4023Gfaok metabolic panel calcium totalChem 8[facility] iHandle [facility] Start: 36-50-0763EwF2t (Bld) [Mass fraction]HEMOGLOBIN T7YYjgeinwqfCeeLite Technologies Start: 29-73-7490Grdrkxwhralny metabolic panelComp [employer] start: 09-87-0968HgC7g (Bld) [Mass fraction]A1c [employer] Start: 22-72-5000Icmmx panelLipid panelDallas CenterCeeLite Technologies Start: 56-08-2469Duwjl metabolic panel calcium total Chem 8[facility] [employer] start: 16-25-3625Tdkbd metabolic panel calcium total Chem 8[facility] iHandle [facility] Start: 10-81-0437Henxk glutamyl transferase [Catalytic activity/Vol]GGTDallas CenterCeeLite Technologies Start: 42-70-4452CdZ4x (Bld) [Mass fraction]HEMOGLOBIN N7EZwucbaaivCeeLite Technologies Start: 84-27-4759Puxvo of prostate specific antigen totalPSA totalDallas CenterCeeLite Technologies Start: 66-15-9044Eiysb count complete automatedCBC & PLATELET COUNT; AUTOMATEDDallas CenterCyntellect [facility] Start: 71-30-9145Qeosjsiyxennu metabolic panel Comprehensive metabolic panelDallas CenterCeeLite Technologies Start: 93-41-1101Jjegd panelLipid panelDallas CenterCyntellect [facility] start: 31-27-5191Pzewm dip stick/tablet rgnt auto w/o microscopyUrinalysis autoDallas CenterCyntellect [facility] Start: 93-51-8692Nw adm prq id subq/im njxs 1 vaccine Administration of single vaccineDallas CenterCeeLite Technologies Start: 01-65-5192Zkkhh of glutamyltrase gammaGAMMA GT Monroe[employer]hern[employer] Start: 21-24-3167Idvlraaobfblo metabolic panelCMP (comprehensive metabolic panel)[employer] start: 36-82-9933Yjzeaiirfg A1c/Hemoglobin.total mass fraction (Bld)HEMOGLOBIN U5PVsegbyfvlCeeLite Technologies start: 21-22-5535Exifu of prostate specific antigen totalPSA totalDallas CenterCeeLite Technologies start: 69-84-9591Ofupu count complete automatedCBC & PLATELET COUNT; AUTOMATEDDallas CenterCeeLite Technologies start: 55-45-1712Nbuenwchrnjei metabolic panel Comprehensive metabolic panelColfax [employer] start: 50-98-7466Mupowkgiwc A1c/Hemoglobin.total mass fraction (Bld)Hgb V2wNddzhmyrkCeeLite Technologies start: 16-16-2992Extcm panelLipid panelDallas CenterCeeLite Technologies start: 22-18-0013Gjsgkqa nutrition re-assmt&ivntj indiv ea 15 mMedical nutrition therapy; re-assessment and intervention, individual, pkxi-rd-zpsf with the patient, each 15 minutesDallas CenterCeeLite Technologies start: 69-17-0732Pjcnqeq nutrition re-assmt&ivntj indiv ea 15 mMedical nutrition therapy; re-assessment and intervention, individual, bozl-wf-uveu with the patient, each 15 minutesDallas CenterCeeLite Technologies start: 60-04-1108Zbbwkut mass concGLUCOSEDallas CenterCeeLite Technologies start: 42-70-8669Yvernsyzfw A1c/Hemoglobin.total mass fraction (Bld)HEMOGLOBIN I0WPgfnuhxoxCeeLite Technologies start: 35-65-5317Gltddqt function panelLiver function panelDallas CenterCeeLite Technologies start: 00-80-9029Hxzxndu nutrition re-assmt&ivntj indiv ea 15 mMedical nutrition therapy; re-assessment and intervention, individual, iqfr-zy-wrbv with the patient, each 15 minutesDallas CenterCeeLite Technologies start: 18-84-6985Bmdpwkt nutrition re-assmt&ivntj indiv ea 15 mMedical nutrition therapy; re-assessment and intervention, individual, oebu-kc-sxgi with the patient, each 15 minutesK[facility] Start: 72-40-7846Orluoaf mass concGLUCOSEK[facility]tering Health [facility] start: 34-51-3684Tblhnqxxib A1c/Hemoglobin.total mass fraction (Bld)HEMOGLOBIN C0XRakcidcfnK[facility]tering Health [facility] Start: 45-32-0073Hdytoyy nutrition re-assmt&ivntj indiv ea 15 mMedical nutrition therapy; re-assessment and intervention, individual, udoe-wy-lnxo with the patient, each 15 minutesK[facility] Start: 63-56-1346Opxitvm function panelLiver function panelKettering Health [facility] Start: 85-73-0746Nsoovxetz for malignant neoplasm of colonColon cancer screen colonoscopyQu[place], [place]: 2014 Shingles Vaccine (1 of 2)Shingles Vaccine (1 of 2)[facility]: 39-36-9001Omcgsoyk screenDiabetes [place], [place]Start: 11-11-1983 DTaP/Tdap/Td vaccine (1 - Tdap)DTaP/Tdap/Td vaccine (1 - Tdap)[facility]: 06-77-9068Ugtuo screening for proteinDiabetes: Urine Protein Screening [facility] HealthcareStart: 47-14-5756DCT screeningHIV [place] Start: 09-76-2477Wiipinej screeningDiabetes: Retinopathy ScreeningNOMS HealthcareStart: 57-35-9648Sbxpi panelLipid [facility]red Healthcareart: 58-49-1466Luualchwwudf 0-64 years Vaccine (1 of 1 - PPSV23)Pneumococcal 0-64 years Vaccine (1 of 1 - PPSV23)[facility]: 67-09-8009Xfzkztqlmv measurementCreatinine monitoringSCCI Hospital [place], [place]Start: 17-18-9507Bhjffzqdwl A1c measurementDiabetes: Hemoglobin Y3RFWXB HealthcareStart: 26-93-6108Hunpnoaof C screeningHepatitis C screenSCCI Hospital [place], [place]Start: 05-03-1965Medicare Annual Wellness (AWV)Medicare Annual Wellness (AWV)[facility] HealthcareStart: 99-70-9908Urkuxucgq monitoringPotassium monitoringSCCI Hospital [place], KYStart: 36-73-5169Hxsjmvsev for malignant neoplasm of colonNOMN HealthcareInitiate Oxygen Therapy ProtocolInitiate Oxygen Therapy Protocol Respiratory Care Routine Daily until discontinued starting 12/28/2019[facility], KYComment on above:Daily until discontinued starting 12/28/2019Patient EducationOhio[facility] Work Phone: Patient referralOhiohealth Grant Medical Center [facility]tr Work Phone: Phase I & II - metered glucosePhase I & II - metered glucose Point of Care Testing Routine As Needed until discontinued starting 12/28/2019[facility], KYComment on above:As Needed until discontinued starting 12/28/2019[facility]ITYB[facility] Invacio [facility] Immunizations Immunization DateImmunizationNotesCare VsmslaemMftymaxk55-39-7354PFLWF-21, Moderna, 100mcg/0.5mlWendi [facility] 1795377-83-4890nsfplpwdt A and hepatitis B vaccineWendi [facility] Thrive Solo [facility] 1705396-98-6479vanhvqe, mumps and rubella virus vaccineWendi [facility] 1786440-88-7877Wvoimylc trivalent influenza vaccine, adjuvanted, preservative freeWendi [facility] Invacio [facility] 1702606-07-4838dlglaaopk virus vaccine, unspecified formulationKimmie Yarbrough MD Work Phone: [phone] Bryant StreetEhzkepzrxd62-63-5498SVWPU-87, Moderna, 100mcg/0.5mlMark [facility] 01-156073-54-8684SML39Pjbx [facility] 26-80432398-63-6277GBKVX-38, Pfizer, 30mcg/0.3mlLeroy [facility] 1761407-47-6574ulhhszrbv, injectable, quadrivalent, contains preservativeLerSamaritan North Health Center 1947082-00-7373zljicbjya virus vaccine, unspecified formulationShay Patterson DO Work Phone: [facility] CenterPmiijygzkv07-58-7008myqyuvicd A and hepatitis B vaccineJeremy [facility] 04-502066-99-2122afxujdxwt B vaccine, adult dosageJeuniversity hospitals elyria medical centery [facility] 04-822113-68-6704amhaua vaccine, liveJeremy [facility] 12144857-40-4060ZWIXP-97, Moderna, 100mcg/0.5mlLeroy [facility] 04-205510-11-9147OYBKL-46, Moderna, 100mcg/0.5mlLeroy [facility] 36-08012471-86-7358JQNCJ-18, Moderna, 100mcg/0.5mlLeroy [facility] 09-704501-84-8047wqmbgnvol virus vaccine, unspecified formulation; Translations: [Administration of influenza virus vaccine][facility] 64-46068000-72-4528xsozqbene, high dose seasonal, preservative- free; Translations: [FLU VACC PRSV FREE INC ANTIG]Edilberto [facility] 1457242-25-9774cxkkjewrh, injectable, quadrivalent, contains preservative; Translations: [FLU VACC 4 FRANCISCO 3 YRS PLUS IM]Edilberto Zamora [facility] 1488943-95-5436yudqrdtns, seasonal, injectableGucciSamaritan North Health Center 1468759-53-9723MODCRHGNOKYE ADMIN; Translations: [IMMUNIZATION ADMIN][facility] 1735087-55-4564Vhsi EktronFairfield Medical Center Thrive Solo [facility] 1567192-39-5099imfgwtfsp, seasonal, injectable; Translations: [FLU VACCINE 3 YRS & > IM]EdilbertoGolfshop OnlineHumboldt General HospitalQuepasa [place] Thrive Solo [facility] 1401535-30-7326UEHQBRRALXSF ADMIN; Translations: [IMMUNIZATION ADMIN]EdilbertoColdLight SolutionsDallas CenterQuepasa [place] Th[facility] Solo [facility] 1864953-89-4467Scbc EktronDallas CenterCyntellect [facility] 09-389621-95-3912asidndaut, seasonal, injectable; Translations: [FLU VACCINE 3 YRS & > IM]Edilberto GrinbathHumboldt General HospitalQuepasa [place] Th[facility] Solo [facility] 09-607192-86-0576KUFQZOOUBCVH ADMIN; Translations: [IMMUNIZATION ADMIN]EdilbertoColdLight SolutionsDallas CenterCyntellect [facility] 09544179-50-5574Uhkd EktronDallas CenterCyntellect [facility] 09684151-19-1276ohovkjzme, seasonal, injectable; Translations: [FLU VACCINE 3 YRS & > IM]EdilbertoColdLight SolutionsDallas CenterCyntellect [facility] 09-791151-96-3567ZRBNXJSQPEHF ADMIN; Translations: [IMMUNIZATION ADMIN]EdilbertoColdLight SolutionsDallas CenterCyntellect [facility] 09-339683-30-0678Wfkz EyeVerifyst. joseph's hospital health centerCeeLite Technologies Payers DatePayer CategoryPayerPolicy [id number] [id number] 2021MedicareANTHEM MEDICARE ADVANTAGE FORMERLY [facility] MEDICARE ADVANTAGE [id number] 2020- [address] [place] [id number] 2021Medicare (Managed Care)ANTH MEDICARE ADVANTAGE [id number] [id number] 1.2.840.311572.1.13.239.2.[id number] 2.840.1.074060.3.22789-25-4053OkcsrmjUSUTAAULNP [employer] [place] MEDICAID xxxxxxxxxxx 2015- [phone] CLAIMS DEPARTMENT [address] [place], [place] [address]wnrakhygarn 1.2.840.471057.1.13.239.2.7.3.988544.47126-48-4286Dxvuajr [id number] 08.26.830.1.771858.3.579.2.48445-82-6517 [id number] 08.26.830.1.736680.3.57[id number] 2.16.840.1.097549.3.57[id number] 2.16.840.1.736545.3.57[id number] 2.16840.1.308662.3.579.2.48106-10-0471Rzltyad18673968 2.16840.1.792445.3.579.2.99902-66-9618Cxylzcz90790653 2.16840.1.994391.3.579.2.77834-37-1433Spqygkx6543117 2.840.1.554186.3.579.2.35914-95-1750Atptyhz8763780 2.0.1.415364.3.579.2.72705-90-7810Fmvzolb8693313 2.16840.1.260148.3.579.2.[id number] 2..1.428672.3.579.2.64136-63-4855Nwyaoaa063689537 2.840.1.323553.3.579.2.[id number] 2.0.1.283464.3.57[id number] 2.840.1.022072.3.57[id number] 2.16840.1.113412.3.579.2.1259 [id number] 2.840.1.363797.[id number] 2.16840.1.555509.3.441 UnknownAnthem /[id number] q38i4662-9w30-18v1-7934-97u05b53p8c3Ropykrv [id number] 2.16.840.1.254070.3.579.2.823Rjdergm71627501 2.16.840.1.798687.3.579.2.620Wbnirgr08222701 2.16.840.1.205517.3.579.2.531 Social History DateTypeDetailFacilityStart: 16-11-7728ChydaywxnOrphazyme Start: -2 cups a dayOrphazyme Start: 12-18-2019 End: 45-53-8970Oxrxabk smoking status NHISCurrent every day smokerSCCI Hospital [facility], MDHistory of tobacco useCigarette SmokerSCCI Hospital [place], MDStart: 12-18-2019 End: 47-42-0311Lamqhfyjmu smoked current (pack per day) - ReportedSCCI Hospital [place], MDStart: 12-18-2019 End: 77-48-1399Yzcwstf intakeCurrent drinker of alcohol (finding)[facility], [place]Start: 83-99-6496Fkxnyli Vjduruf0R WEEKLYSCCI Hospital [place], KYStart: 04-20-8147Rmh Assigned At BirthNot on fileSCCI Hospital [place], KYExposure to SARS-CoV-2 (event)Unable to assessSCCI Hospital [place], MDStart: 83-73-6989Ouzpftk use and exposureNever usedSCCI Hospital [place], MDExposure to SARS-CoV-2 (event)Not sureQuincy, KYStart: *TobaccoOrphazyme Start: 04-01-2022 End: 57-73-4757Ozkmbir smoking status NHISSmoker (finding)[facility] Hospitaltart: 51-59-4258Uwp Assigned At [facility] HospitalTobacco smoking statusNo Smoking Status EnteredShelby Memorial Hospitaltart: 12-27-2022 End: 74-67-1877Hwz Assigned At [facility] Anthony[facility] Hospitaltart: 71-90-0538Tiltwyi Kfjtobh96-96 cigs a dayNOMN HealthcareStart: 23-39-4752Fbjkmjo Comment3-4 drinks 4+ times a week. Caffine intake: 2-3 cups per dayHUNTSMAN MENTAL [facility]ALTH INSTITUTE HealthcareStart: /[address] [facility] hospitalOrphazyme Start: or 4 per nubelo Start: -3 cups a dayOrphazyme Start: /4 [employer] Start: -2 per nubelo Start: 07-20-2024 End: 65-81-1252PwjEcvx (finding)[facility] Medical Equipment Procedure CodeEquipment CodeEquipment Original TextEquipment IdentifierDates [place] Sut Corkscrew Biocomposite [id number]: 20-70-3773Rjxxbo Suture Swivelock 4.75x19.1 Biocomposite Min [id number]: 16-66-2451Kvrxdg Endoscopic Bicep [id number]_impStart: 12-28-2019 Clinical Notes 04-14-2022 to 04-08-2025 Note Date & YvguXqnlYkobxxsd14-86-7672 History of Present illness Narrative* Kimmie Yarbrough [...] 4 months (around 08/08/2025). 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 Per Kaur patient needs to come to [place] today at 2:30 PM. Patient states he has another appointment and does not think that will work for him. He states he will be calling his other doctor to coordinate. [facility] Medical CenterSozhiumbrn66-83-3182 Miscellaneous Notes* Telephone Encounter - Shon Esa - 08/09/2023 9:21 AM EST Patient called stating he fell in the bathroom and has a Q-tip jammed in his ear that will not comeout. Per Kaur patient needs to come to [place] today at 2:30 PM. Patient states he has another appointment and does not think that will work for him. He states he will be calling his other doctor to coordinate. documented in this encounterCameron Regional Medical CenterMshxvzvzmd26-06-1059 NotePROCEDURE: XR ANKLE RT MIN 3 VIEWS, [...] Electronically authenticated by: SASHA FLAHERTY Date: 2022-07-28 16:42[facility]01-18-2023 NotePROCEDURE: XR ANKLE RT MIN 3 [...] Electronically authenticated by: SASHA FLAHERTY Date: 2022-07-28 16:42[facility]12-15-2022 NotePROCEDURE: XR ANKLE RT MIN 3 [...] Electronically authenticated by: TESS JHAVERI Date: 2022-06-24 06:[facility]12-15-2022 NotePROCEDURE: XR ANKLE RT MIN 3 [...] Electronically authenticated by: TESS JHAVERI Date: 2022-06-24 06:[facility]10-26-2022 Progress note Author Fariha Novak [facility] May 05, 2022 2:50pmNote Date/TimeOct2021 2:50pmHart[place] [address] Wound Center Provider Note Signed Patient: Geremias Melchor MR#: [id number] : 1965 Acct:[id number] Age/Sex: 56 / M Copies to: NON STAFF Fariha Novak APRN~ HPI Date of Visit Date of Visit: Date of Service: 05/05/2022 Time of Service: 14:47 Narrative HPI: 04/14/22 Geremias is a 56-year-old male presenting to [facility] wound care program for an initial [...] is not per se happy with his 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 recruiter in [place] and therefore I did give him the name of a local 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 recruiter who could address his concerns with Charcot [...] wound start?: March 2022 Mode of Arrival/ Core Drill Operator: Personal vehicle Lives with:: Alone Appetite Description: Within Normal Limits Who helps w/ dressing change?: Self Smoking Status: Current every day smoker [facility] Vaccinated for COVID-19?: Yes Medical History (Updated [...] Appearance: Beefy Red, Epithelial Tissue or Bridge, [place] and Yellow Percent of Wound Bed Granulated/Red: [...] <Electronically signed by RADHA Novak> 05/05/22 1450 [facility] Work Phone: 1(759) 995-331710-05-2022 Progress note Author Fariha Novak [facility] April 14, 2022 2:46pmNote Date/TimeOct2021 2:46pmHartwick[place] [address] Wound Center Provider Note Signed Patient: Geremias Melchor MR#: [id number] : 1965 Acct:[id number] Age/Sex: 56 / M Copies to: NON STAFF Fariha Novak APRN~ HPI Date of Visit Date of Visit: Date of Service: 04/14/2022 Time of Service: 14:37 Narrative HPI: 04/14/22 Geremias is a 56-year-old male presenting to [facility] wound care program for an initial [...] is not per se happy with his 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 recruiter in [place] and therefore I did give him the name of a local 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 recruiter who could address his concerns with Charcot [...] wound start?: March 2022 Mode of Arrival/ Core Drill Operator: Personal vehicle Lives with:: Alone Appetite [...] w/o penetration to deeper layers Bed Appearance: [place] and Yellow Percent of Wound Bed Granulated/Red: 90 Percent of Devitalized: 10 Length (cm): 0.5 Width (cm): 0.6 Depth (cm): 0.1 CM Sq: 0.300 Surrounding Tissue Appearance: Callous Surrounding Tissue Temp: Warm Drainage Amount: Small Drainage Description: Serosanguineous Drainage Odor: No Odor Left Plantar Great Toe: Type: Diabetic Ulcer Diabetic Ulcer Grading: Superficial ulcer of skin w/o penetration to deeper layers Bed Appearance: [place] and Yellow Percent of Wound Bed Granulated/Red: 50 Percent of Devitalized: 50 Length (cm): 2.3 Width (cm): 1.5 Depth (cm): 0.1 CM Sq: 3.450 Surrounding Tissue Appearance: Callous Surrounding Tissue Temp: Warm Drainage Amount: Small Drainage Description: Serosanguineous Drainage Odor: No Odor Right Plantar Great Toe: Type: Diabetic Ulcer Diabetic Ulcer Grading: Superficial ulcer of skin w/o penetration to deeper layers Bed Appearance: [place] and Yellow Percent of Wound Bed Granulated/Red: 10 Percent of Devitalized: 90 Length (cm): 2.1 Width (cm): 1.1 Depth (cm): 0.1 CM Sq: 2.310 Surrounding Tissue Appearance: Callous Surrounding Tissue Temp: Warm Drainage Amount: Small Drainage Description: Serosanguineous Drainage Odor: No Odor Right Posterior Heel: Type: Diabetic Ulcer Diabetic Ulcer Grading: Superficial ulcer of skin w/o penetration to deeper layers Bed Appearance: [place] and Yellow Percent of Wound Bed Granulated/Red: [...] <Electronically signed by RADHA Novak> 04/14/22 1446 [facility] Work Phone: Evaluation + Plan note No data available for this section [facility] CenterEvaluation noteNo assessment information available [facility] Work Phone: Evaluation note* Diagnosis Onset Date Resolution Status Diabetic foot ulcer acuteDiabeteschronicHyperlipidemiachronicNeuropathychronicTobacco usechronic [facility] Work Phone: Evaluation note* Diagnosis Onset Date Resolution Status Diabetes chronicDiabetic foot ulcerchronicHyperlipidemiachronicNeuropathychronicTobacco usechronic [facility] Work Phone: Evaluation note* Diagnosis Onset Date Resolution Status Diabetes chronicHyperlipidemiachronicNeuropathychronicTobacco usechronicDiabetic foot ulcerresolved [facility] Work Phone: Evaluation note* Diagnosis 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 Low libido Encounter for dietary consultation Class 1 obesity due to excess calories without serious comorbidity with body mass index (BMI) of 34.0 to 34.9 in adult documented in this encounter [facility] Discharge instructions Additional Instructions Return for worsening symptoms Follow-up with wound care and podiatry or OrthoUk [facility] Work Phone: Hospital Discharge instructions No data available for this section [facility] CenterH[facility] Discharge instructions Additional Instructions Continue good wound care until completely healed Follow-up with family doctor as neededUk Healthcare Work Phone: Progress note Author Fariha Novak [facility] May 27, 2022 2:46pmNote Date/TimeNovember 2021 2:46pmHart[place] [address] Wound Center Provider Note Signed Patient: Geremias Melchor MR#: [id number] : 1965 Acct:[id number] Age/Sex: 56 / M Copies to: NON STAFF Fariha Novak APRN~ HPI Date of Visit Date of Visit: Date of Service: 05/27/2022 Time of Service: 14:43 Narrative HPI: 04/14/22 Geremias is a 56-year-old male presenting to [facility] wound care program for an initial [...] is not per se happy with his 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 recruiter in [place] and therefore I did give him the name of a local 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 recruiter who could address his concerns with Charcot [...] wound start?: March 2022 Mode of Arrival/ Core Drill Operator: Personal vehicle Lives with:: Alone Appetite Description: Within Normal Limits Who helps w/ dressing change?: Self Smoking Status: Current every day smoker [facility] Vaccinated for COVID-19?: Yes Medical History (Updated [...] <Electronically signed by RADHA Novak> 05/27/22 1446 [facility] Work Phone: Progress note No data available for this section [facility] Summary Purpose Family History No Family History Records Found Relationship Condition Age at Onset Recorded Date/T shannan family member Diabetes mellitus Unknown Advance Directives No Advanced Directives Records FoundDocuments on File TypeDate RecordedPatient RepresentativeExplanationAdvance Directives and Living WillPower of AttorneyTypeDate RecordedPatient RepresentativeExplanationAdvance Directives and Living WillPower of AttorneyTypeDate RecordedPatient RepresentativeExplanationACP-Advance DirectiveACP-Power of Children'S Attendant Advance Directive Response Recorded Date/ Time Advance [...] for any questions regarding your surgery. Call [phone] forurgent questions after 5PM until 8AM 10. [...] MRI SHOULDER RIGHT WO CONTRAST Mignon Townsend, [employer]DI[employer] - DATA STEWARD [address] [place] [address] StatusReasonSpecialtyDiagnoses / ProceduresReferred By ContactReferred To ContactOpenRadiology Diagnoses Right knee pain, unspecified chronicity Procedures MRI KNEE RIGHT WO CONTRAST Mignon Townsend, [employer]DI[employer] - DATA STEWARD [address] [place] [address] Chief Complaint and Reason for Visit Chief [...] 19, 2024 5: 53pm Ref: Dr. Brooks, JD [facility] August 14 3:04pm Additional Source Comments (unrecognized sect ion and content) No Status Records FoundNo Status Records FoundNo Status Records FoundNo Status Records FoundNo Status Records FoundNo Status Records FoundNo Status Records FoundNo Status Records Found INFORMATION SOURCE (unrecogn ized section and content) DATE CREATED AUTHOR 11/15/2018 [facility] DATE CREATED AUTHOR AUTHOR'S ORGANIZ ATION 03/28/2020 [facility] DATE CREATED AUTHOR AUTHOR'S ORGANIZ ATION 06/21/2020 [facility] DATE CREATED AUTHOR AUTHOR'S ORGANIZ ATION 2022 [facility] DATE CREATED AUTHOR AUTHOR'S ORGANIZ ATION 06/18/2023 [facility] DATE CREATED AUTHOR AUTHOR'S ORGANIZ ATION 11/29/2024 [facility] DATE CREATED AUTHOR AUTHOR'S ORGANIZ ATION 12/22/2024 [facility] DATE CREATED AUTHOR AUTHOR'S ORGANIZ ATION 04/14/2025 [facility] Reason for Visit (unrecogniz ed section and content) StatusReasonSpecialtyDiagnoses / ProceduresReferred By ContactReferred To Contact Diagnoses Unspecified rotator cuff tear or rupture of right shoulder, not specified as traumatic RIGHT SHOULDER ROTATOR CUFF TEAR Procedures ME SHLDR ARTHROSCOP,SURG,W/ROTAT CUFF REPR SHOULDER ARTHROSCOPY ROTATOR CUFF REPAIR, POSSIBLE BICEPS TENDONDESIS Tess Escalona MD [address] [place] [address] [facility] StatusReasonSpecialtyDiagnoses / ProceduresReferred By ContactReferred To ContactClosedRadiology Diagnoses Pain in right shoulder Procedures MRI-UPPER EXT JNT WO CONT Tess Escalona MD [address] [facility] [address] [place] [address] [facility] [address] [place] [address] StatusReasonSpecialtyDiagnoses / ProceduresReferred By ContactReferred To ContactClosedRadiology Diagnoses Pain in right knee Procedures HC MRI LOWER EXTREM JT, W/O CONTRAST Mignon Townsend, [employer]DI[employer] - [employer] ST[employer]ARD [address] [place] [address] [facility] [address] [place] [address] ReasonCommentsTesticular Hypofunction Care Teams (unrecognized sec tion [...] Han, [address] [place] [address] PCP - Daniel WANG12/09/22 [place] [address] [place] [address] [address] [place] [id number] PCP - [facility]12/27/22 Team Status: Active Member Role [...] DateEnd Date Jignesh Muniz NP PCP - [facility]12/27/22Team MemberRelationshipSpecialtyStart DateEnd Date Jignesh Muniz [...] BE BASED ON THE PRIMARY CLINICAL RECORDS. [employer] [facility]. provides no warranty or guarantee of the accuracy or completeness of information in this document.
== END 2025-06-12 12:14 | disposition home or self-care (01) ==
LOC: WC 12:13
PROVIDERS: Visit Provider Podiatrist Foot & Ankle Surgery
DX: E11.621 Type 2 diabetes mellitus with foot ulcer (principal); L97.415 Non-pressure chronic ulcer of right heel and midfoot with muscle involvement without evidence of necrosis; L97.426 Non-pressure chronic ulcer of left heel and midfoot with bone involvement without evidence of necrosis
CPT/HCPCS: 11043

== ENCOUNTER 2025-06-24 14:40 | Outpatient (OUT) | payer MEDICARE, MEDICAID, SELFPAY | END 2025-06-24 14:41 | disposition home or self-care (01) | LOC: WC 14:40 | PROVIDERS: Visit Provider Podiatrist Foot & Ankle Surgery | DX: E11.621 Type 2 diabetes mellitus with foot ulcer (principal); L97.415 Non-pressure chronic ulcer of right heel and midfoot with muscle involvement without evidence of necrosis; L97.426 Non-pressure chronic ulcer of left heel and midfoot with bone involvement without evidence of necrosis | CPT/HCPCS: 97597 ==